=== PATIENT | female | born 1945 | race Caucasian/White ===

== ENCOUNTER 2022-01-12 13:04 | Outpatient (CLI) | payer MEDICARE, BC, SELFPAY | END 2022-01-12 13:05 | disposition home or self-care (01) | LOC: WOUND 13:06 | PROVIDERS: PCP Surgery; Visit Provider Surgery | DX: I89.0 Lymphedema, not elsewhere classified (principal); L89.154 Pressure ulcer of sacral region, stage 4; R77.0 Abnormality of albumin; I48.20 Chronic atrial fibrillation, unspecified; E66.01 Morbid (severe) obesity due to excess calories; Z68.43 Body mass index [BMI] 50.0-59.9, adult | CPT/HCPCS: 97597; 97598 ==

== ENCOUNTER 2022-01-19 12:44 | Outpatient (CLI) | payer MEDICARE, BC, SELFPAY | END 2022-01-19 12:45 | disposition home or self-care (01) | LOC: WOUND 12:45 | PROVIDERS: Visit Provider Surgery | DX: L89.154 Pressure ulcer of sacral region, stage 4 (principal); I89.0 Lymphedema, not elsewhere classified; R77.0 Abnormality of albumin; E66.01 Morbid (severe) obesity due to excess calories; Z68.43 Body mass index [BMI] 50.0-59.9, adult | CPT/HCPCS: 11042 ==

== ENCOUNTER 2022-01-26 12:33 | Outpatient (CLI) | payer MEDICARE, BC, SELFPAY | END 2022-01-26 12:34 | disposition home or self-care (01) | LOC: WOUND 12:35 | PROVIDERS: Visit Provider Surgery | DX: L89.154 Pressure ulcer of sacral region, stage 4 (principal); I89.0 Lymphedema, not elsewhere classified; R77.0 Abnormality of albumin; E66.01 Morbid (severe) obesity due to excess calories; Z68.43 Body mass index [BMI] 50.0-59.9, adult | CPT/HCPCS: 11042; 11045; 15271 ==

== ENCOUNTER 2022-02-02 12:45 | Outpatient (CLI) | payer MEDICARE, BC, SELFPAY | END 2022-02-02 12:46 | disposition home or self-care (01) | LOC: WOUND 12:46 | PROVIDERS: Visit Provider Surgery | DX: L89.154 Pressure ulcer of sacral region, stage 4 (principal); I89.0 Lymphedema, not elsewhere classified | CPT/HCPCS: 11042 ==

== ENCOUNTER 2022-02-09 13:57 | Outpatient (CLI) | payer MEDICARE, BC, SELFPAY ==
--- NOTE | 2022-02-09 14:15 | CRLHL7_ITS ---
For Patients: As a result of the Century Cures Act, medical imaging exams and procedure reports are released immediately into your electronic medical record. You may view this report before your referring provider. If you have questions, please contact your health care provider. Indication: Foot injury. Technique: Three views. Comparison: None. Findings/Impression: Severe generalized osseous demineralization limits evaluation for nondisplaced fractures. No displaced fracture or dislocation. Suspected nondisplaced fracture of the proximal 1st metatarsal. If indicated consider CT for further evaluation. Hallux valgus with degenerative change in the 1st MTP joint. Plantar and retrocalcaneal enthesophytes. Degenerative changes at the tarsometatarsal joints. No osseous erosion or destruction to suggest osteomyelitis on radiograph. Subcutaneous soft tissue swelling in the ankle and foot. Dictated by Ba Espinoza MD @ 02/09/2022 4:17:26 PM (Electronically Signed)
== END 2022-02-09 13:58 | disposition home or self-care (01) ==
LOC: WOUND 13:57
PROVIDERS: Visit Provider Surgery
DX: L89.154 Pressure ulcer of sacral region, stage 4 (principal); I89.0 Lymphedema, not elsewhere classified; S99.822A Other specified injuries of left foot, initial encounter; E66.01 Morbid (severe) obesity due to excess calories; Z68.43 Body mass index [BMI] 50.0-59.9, adult
CPT/HCPCS: 11042; 11045; 73630

== ENCOUNTER 2022-02-16 12:06 | Outpatient (CLI) | payer MEDICARE, BC, SELFPAY ==
--- NOTE | 2022-02-16 12:00 | CRLHL7_ITS ---
For Patients: As a result of the Cures Act, medical imaging exams and procedure reports are released immediately into your electronic medical record. You may view this report before your referring provider. If you have questions, please contact your health care provider. Indication: FOOT INJURY. PAIN BY TOES Technique: Noncontrast CT left foot Please note that all CT scans at this facility use dose modulation, iterative reconstruction, and/or weight-based dosing when appropriate to reduce radiation dose to as low as reasonably achievable. Comparison: X-rays 02/09/2022 Findings: Mildly displaced and slightly comminuted fracture is noted involving the base of the 1st metatarsal. The fracture line extends along the 1st metatarsal diaphysis to the distal 3rd of the metatarsal. 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 Hallux valgus and bunion. Midfoot alignment normal. Osteopenia. No evidence of osteomyelitis or destructive lesion. Impression: Mildly displaced and slightly comminuted fracture involving the 1st metatarsal. Please note that all CT scans at this facility use dose modulation, iterative reconstruction, and/or weight-based dosing when appropriate to reduce radiation dose to as low as reasonably achievable. Dictated by Manny Cross MD @ 02/16/2022 12:59:27 PM (Electronically Signed)
== END 2022-02-16 12:07 | disposition home or self-care (01) ==
PROVIDERS: Visit Provider Surgery
DX: S99.929A Unspecified injury of unspecified foot, initial encounter (principal); S92.312A Displaced fracture of first metatarsal bone, left foot, initial encounter for closed fracture
CPT/HCPCS: 11042; 73700

== ENCOUNTER 2022-02-23 12:41 | Outpatient (CLI) | payer MEDICARE, BC, SELFPAY | END 2022-02-23 12:42 | disposition home or self-care (01) | LOC: WOUND 12:41 | PROVIDERS: Visit Provider Surgery | DX: L89.154 Pressure ulcer of sacral region, stage 4 (principal); I89.0 Lymphedema, not elsewhere classified | CPT/HCPCS: 11042; 11045 ==

== ENCOUNTER 2022-03-02 11:17 | Outpatient (CLI) | payer MEDICARE, BC, SELFPAY | END 2022-03-02 11:18 | disposition home or self-care (01) | PROVIDERS: Visit Provider Surgery | DX: L89.154 Pressure ulcer of sacral region, stage 4 (principal); I89.0 Lymphedema, not elsewhere classified | CPT/HCPCS: 11042 ==

== ENCOUNTER 2022-03-09 12:37 | Outpatient (CLI) | payer MEDICARE, BC, SELFPAY | END 2022-03-09 12:38 | disposition home or self-care (01) | LOC: WOUND 12:37 | PROVIDERS: Visit Provider Surgery | DX: I89.0 Lymphedema, not elsewhere classified (principal); L89.154 Pressure ulcer of sacral region, stage 4 | CPT/HCPCS: 97597 ==

== ENCOUNTER 2022-03-16 12:49 | Outpatient (CLI) | payer MEDICARE, BC, SELFPAY | END 2022-03-16 12:50 | disposition home or self-care (01) | LOC: WOUND 12:49 | PROVIDERS: Visit Provider Surgery | DX: L89.154 Pressure ulcer of sacral region, stage 4 (principal) | CPT/HCPCS: 99212 ==

== ENCOUNTER 2022-03-23 09:00 | Outpatient (CLI) | payer MEDICARE, BC, SELFPAY | END 2022-03-23 09:01 | disposition home or self-care (01) | LOC: WOUND 08-02 11:14 | PROVIDERS: Visit Provider Nurse Practitioner Family | DX: L89.154 Pressure ulcer of sacral region, stage 4 (principal); I89.0 Lymphedema, not elsewhere classified | CPT/HCPCS: 11042 ==

== ENCOUNTER 2022-03-30 12:42 | Outpatient (CLI) | payer MEDICARE, BC, SELFPAY | END 2022-03-30 12:43 | disposition home or self-care (01) | LOC: WOUND 12:43 | PROVIDERS: Visit Provider Nurse Practitioner Family | DX: L89.324 Pressure ulcer of left buttock, stage 4 (principal) | CPT/HCPCS: 11042 ==

== ENCOUNTER 2022-04-06 12:33 | Outpatient (CLI) | payer MEDICARE, BC, SELFPAY | END 2022-04-06 12:34 | disposition home or self-care (01) | LOC: WOUND 12:33 | PROVIDERS: Visit Provider Surgery | DX: L89.324 Pressure ulcer of left buttock, stage 4 (principal); I89.0 Lymphedema, not elsewhere classified | CPT/HCPCS: 11042; 11045 ==

== ENCOUNTER 2022-04-13 13:55 | Outpatient (CLI) | payer MEDICARE, BC, SELFPAY | END 2022-04-13 13:56 | disposition home or self-care (01) | PROVIDERS: Visit Provider Surgery | DX: L89.324 Pressure ulcer of left buttock, stage 4 (principal) | CPT/HCPCS: 11042 ==

== ENCOUNTER 2022-04-20 12:49 | Outpatient (CLI) | payer MEDICARE, BC, SELFPAY | END 2022-04-20 12:50 | disposition home or self-care (01) | LOC: WOUND 12:49 | PROVIDERS: Visit Provider Surgery | DX: L89.324 Pressure ulcer of left buttock, stage 4 (principal); I89.0 Lymphedema, not elsewhere classified | CPT/HCPCS: 11042; 11045 ==

== ENCOUNTER 2022-04-27 12:40 | Outpatient (CLI) | payer MEDICARE, BC, SELFPAY | END 2022-04-27 12:41 | disposition home or self-care (01) | LOC: WOUND 12:40 | PROVIDERS: Visit Provider Surgery | DX: L89.324 Pressure ulcer of left buttock, stage 4 (principal) | CPT/HCPCS: 11042 ==

== ENCOUNTER 2022-05-04 12:44 | Outpatient (CLI) | payer MEDICARE, BC, SELFPAY | END 2022-05-04 12:45 | disposition home or self-care (01) | LOC: WOUND 12:44 | PROVIDERS: Visit Provider Surgery | DX: L89.324 Pressure ulcer of left buttock, stage 4 (principal) | CPT/HCPCS: 11042 ==

== ENCOUNTER 2022-05-11 12:36 | Outpatient (CLI) | payer MEDICARE, BC, SELFPAY | END 2022-05-11 12:37 | disposition home or self-care (01) | LOC: WOUND 12:36 | PROVIDERS: Visit Provider Surgery | DX: L89.154 Pressure ulcer of sacral region, stage 4 (principal); I89.0 Lymphedema, not elsewhere classified | CPT/HCPCS: 11042 ==

== ENCOUNTER 2022-05-18 12:46 | Outpatient (CLI) | payer MEDICARE, BC, SELFPAY | END 2022-05-18 12:47 | disposition home or self-care (01) | LOC: WOUND 12:46 | PROVIDERS: Visit Provider Surgery | DX: L89.154 Pressure ulcer of sacral region, stage 4 (principal); I89.0 Lymphedema, not elsewhere classified | CPT/HCPCS: 11042 ==

== ENCOUNTER 2022-05-25 12:45 | Outpatient (CLI) | payer MEDICARE, BC, SELFPAY | END 2022-05-25 12:46 | disposition home or self-care (01) | LOC: WOUND 12:45 | PROVIDERS: Visit Provider Surgery | DX: L89.154 Pressure ulcer of sacral region, stage 4 (principal); I89.0 Lymphedema, not elsewhere classified; R77.0 Abnormality of albumin | CPT/HCPCS: 11042 ==

== ENCOUNTER 2022-06-01 12:40 | Outpatient (CLI) | payer MEDICARE, BC, SELFPAY | END 2022-06-01 12:41 | disposition home or self-care (01) | LOC: WOUND 12:41 | PROVIDERS: Visit Provider Nurse Practitioner Family | DX: L89.154 Pressure ulcer of sacral region, stage 4 (principal); I89.0 Lymphedema, not elsewhere classified | CPT/HCPCS: 11042 ==

== ENCOUNTER 2022-06-15 12:32 | Outpatient (CLI) | payer MEDICARE, BC, SELFPAY ==
--- OUTSIDE RECORDS SUMMARY | 2022-06-15 12:36 | XMS_ITS | Encounter Summary ---
:1945 Author [facility] Address [address] [place] [address] Care Team Providers Name Role Phone Jaiden Holcomb MD Primary Care Provider Reason for Visit Auth/Cert Specialty Diagnoses / Procedures Referred By Contact Refer red To Contact Diagnoses Acute pulmonary edema (HRC) Chest pain, unspecified type Acute pulmonary edema (HRC) Chest pain, unspecified type Acute pulmonary edema (HRC) Referral ID Status Reason Start Date Expiration Date Visits Requ ested Visits Authorized [id number] 1 1 Encounter Details Date Type Department Care Team Description 12/01/2021 Ancillary Procedure [facility] [address] [place] [id number] Social History Tobacco Use Types Packs/Day Years Used Date Smoking Tobacco: Never Smokeless Tobacco: Never Alcohol Use Standard Drinks/Week Comments No 0 (1 standard drink = 0.6 oz pure alcoho l) Food Insecurity Answer Date Recorded Within the past 12 months, you worried that your food would Never true 12/01/2021 run out before you got money to buy more. Within the past 12 months, the food you bought just didn't N ever true 12/01/2021 last and you didn't have money to get more. Sex Assigned at Date Recorded Not on file documented as of this encounter Plan of Treatment Not on filedocumented as of this encounter Procedures Procedure Name Priority Date/Time Associated Diagnosis Comme nts XR PORTABLE CHEST 1 Routine 12/01/2021 8:38 AM Re sults for this VIEW CDT procedure are i n the results section. documented in this encounter Results XR Portable Chest 1 View (12/01/2021 8:38 AM CDT) Anatomical Region Laterality Modality Chest, Lung Computed Radiography Specimen (Source) Anatomical Collection Method Collection Time Re ceived Time Location / / Volume Laterality 12/01/2021 8:38 AM CDT Narrative 12/01/2021 10:58 AM CDT EXAM: XR PORTABLE CHEST 1 VIEW LOCATION: [facility] DATE/TIME: 12/01/2021, 8:38 AM INDICATION: Volume overload. HFpEF. COMPARISON: 11/30/2021. IMPRESSION: Cardiac silhouette size is e nlarged. There is moderate pulmonary edema. These findings are similar to prior study and compatible with congestive heart failure. No pneumothorax or pleural effusion. Procedure Note Amado Proctor MD - 12/01/2021Form atting of this note might be different from the original. EXAM: XR PORTABLE CHEST 1 VIEW LOCATION: [facility] DATE/TIME: 12/01/2021, 8:38 AM INDICATION: Volume overload. HFpEF. COMPARISON: 11/30/2021. IMPRESSION: Cardiac silhouette size is e nlarged. There is moderate pulmonary edema. These findings are similar to prior study and compatible with congestive heart failure. No pneumothorax or pleural effusion. Reji Santacruz DO RAD PORTABLE documented in this encounter Visit Diagnoses Not on filedocumented in this encounter Care Teams Operational Trainer Relationship Specialty Start Date End Date Jaiden Holcomb MD PCP - General Internal Medicine 11/30/21 [address] [facility] [place] [id number] documented as of this encounter
--- OUTSIDE RECORDS SUMMARY | 2022-06-15 12:36 | XMS_ITS | Clinical Summary ---
:1945 Author Organization [email or web address] [place] [address] Care Team Providers Name Role Phone AlexisEmmett Doni COOPER Primary Care Provider Allergies Active Allergy Reactions Severity Noted Date Comments Cephalexin 07/15/2010 Lisinopril Cough 10/06/2011 Penicillins 07/15/2010 Medications Medication Sig Dispensed Refills Start Date End Date Status warfarin (COUMADIN) 7.5 TK ONE T MTWTSS 0 02/19/2016 Active mg tablet OR DIRECTED BY INR CLINIC hydrocortisone (HYTONE) JOI EXT AA D PRN 3 6 Active 2.5 % ointment atenolol (TENORMIN) 25 3 2016 Active mg tablet losartan (COZAAR) 100 3 2016 Active mg tablet triamterene-hydrochloro TK 1 C PO QAM 3 2016 Active thiazide, 37.5-25 mg, (DYAZIDE) 37.5-25 mg capsule Active Problems Problem Noted Date Kzf-[id number]-uhjibhykgkk corneal dystrophy 03/10/2014 Myopia 07/15/2010 Unspecified cataract 07/15/2010 Social History Tobacco Use Types Packs/Day Years Used Date Never Assessed Sex Assigned at Date Recorded Not on file Plan of Treatment Health Maintenance Due Date Last Done Comments COVID-19 vaccine series (#1) 1945 Tdap 1957 Depression screening for age 12+ 1958 BMI (ht and wt on same day) for age 18+ 01/05/1964 Hepatitis C screening for age 18-79 01/05/1964 Tetanus booster 1966 Zoster (shingles) series for age 50+ (1 of 2) 01/05/1996 DEXA/DXA scan for age 65+ 2011 Medicare Wellness for age 65+ 2011 Pneumococcal series for age 65+ (1 - PCV) 2011 Influenza for age 65+ 03/17/2022 Results Not on filefrom Last 3 Months Insurance Payer Benefit Plan / Subscriber ID Effective Dates Phone Addre ss Type Group [employer] [place] [place] [id number] 2014-Present [address] [address] [place] [address] MEDICARE - PB MEDICARE [place] [id number] 2010-Present ATTN : CLAIMS USE ONLY ONLY [address] [place] [address] Care Teams Service Dog Trainer Relationship Specialty Start Date End Date Emmett Alexis, OD PCP - General Film Splicer 06/28/10
--- OUTSIDE RECORDS SUMMARY | 2022-06-15 12:36 | XMS_ITS | Encounter Summary ---
:1945 [facility] Address [address] [place] [address] Care Team Providers Name Role Phone Jaiden Holcomb MD Primary Care Provider Reason for Referral Consult only No Tests 1 visit (Routine) - Incomplete Specialty Diagnoses / Procedures Referred By Contact Refer red To Contact Diagnoses Generalized muscle weakness Lymphedema Reji Santacruz DO [address] [place] [id number] Referral ID Status Reason Start Date Expiration Date Visits V isits Requested Authorized [id number] Incomplete 12/03/2021 06/01/[phone] Scheduling Instructions This order is your clinician's recommend ation for a service and is not an insurance referral which authorizes payment. The r ecommended service and/or location may not be covered by your insurance plan. Please c all the number on your insurance card to find out your specific benefits and coverage for the recommended services and/or location. If you need help scheduling the recommen ded services, please ask your clinician's staff to assist you. onsult only No Tests 1 visit (Routine) - Incomplete Specialty Diagnoses / Procedures Referred By Contact Refer red To Contact Diagnoses Generalized muscle weakness Reji Santacruz DO [address] [place] [id number] Referral ID Status Reason Start Date Expiration Date Visits V isits Requested Authorized [id number] Incomplete 12/03/2021 06/01/[phone] Scheduling Instructions This order is your clinician's recommend ation for a service and is not an insurance referral which authorizes payment. The r ecommended service and/or location may not be covered by your insurance plan. Please c all the number on your insurance card to find out your specific benefits and coverage for the recommended services and/or location. If you need help scheduling the recommen ded services, please ask your clinician's staff to assist you. herapies (Routine) - New Request Specialty Diagnoses / Procedures Referred By Contact Refer red To Contact Diagnoses Lymphedema Reji Santacruz DO [address] [place] [phone] Referral ID Status Reason Start Date Expiration Date Visits V isits Requested Authorized [id number] New Request 12/03/2021 12/03/2022 1 1 Scheduling Instructions Your provider has recommended an appoint ment with [facility]. You can quickly make your appointment online at [employer]/schedule. You can also call [phone] for help scheduling yo ur appointment. We suggest you call your health insurance company about your cove rage and benefits for this appointment. onsult only No Tests 1 visit (Routine) - Incomplete Specialty Diagnoses / Procedures Referred By Contact Refer red To Contact Diagnoses Generalized muscle weakness Reji Santacruz DO [address] [place] [id number] Referral ID Status Reason Start Date Expiration Date Visits V isits Requested Authorized [id number] Incomplete 12/03/2021 06/01/[phone] Scheduling Instructions This order is your clinician's recommend ation for a service and is not an insurance referral which authorizes payment. The r ecommended service and/or location may not be covered by your insurance plan. Please c all the number on your insurance card to find out your specific benefits and coverage for the recommended services and/or location. If you need help scheduling the recommen ded services, please ask your clinician's staff to assist you. onsult only No Tests 1 visit (Routine) - Incomplete Specialty Diagnoses / Procedures Referred By Contact Refer red To Contact Diagnoses Acute pulmonary edema (HRC) Reji Santacruz DO [address] [place] [address] Referral ID Status Reason Start Date Expiration Date Visits V isits Requested Authorized [id number] Incomplete 12/03/2021 06/01/[phone] Scheduling Instructions This order is your clinician's recommend ation for a service and is not an insurance referral which authorizes payment. The r ecommended service and/or location may not be covered by your insurance plan. Please c all the number on your insurance card to find out your specific benefits and coverage for the recommended services and/or location. If you need help scheduling the recommen ded services, please ask your clinician's staff to assist you. Consult/Transfer Care (Routine) - New Request Specialty Diagnoses / Procedures Referred By Contact Refer red To Contact Diagnoses Acute pulmonary edema (HRC) Reji Santacruz DO [address] [place] [address] Referral ID Status Reason Start Date Expiration Date Visits V isits Requested Authorized [id number] New Request 12/03/2021 03/04/2023 1 1 Scheduling Instructions Your provider has recommended an appoint ment with [facility]. You can quickly make your appointment online at [employer]/schedule. You can also call [phone] for help scheduling yo ur appointment. We suggest you call your health insurance company about your cove rage and benefits for this appointment. Consult/Transfer Care (Routine) - Closed Specialty Diagnoses / Procedures Referred By Contact Refer red To Contact Diagnoses Acute pulmonary edema (HRC) Reji Santacruz DO [facility] - [address] [place] [address] [place] [address] Fax: Referral ID Status Reason Start Date Expiration Date Visits Requ ested Visits Authorized [id number] Closed 12/03/2021 01/02/2022 1 1 Scheduling Instructions Your provider has recommended an appoint ment with [facility] for your ongoing patient care. You can quick ly make your appointment online at [employer]/schedule. You can als o call [phone] for help scheduling your appointment. We suggest you call your [employer] about your coverage and benefits for this appointment. Procedure/Equipment (Routine) - Incomplete Specialty Diagnoses / Procedures Referred By Contact Refer red To Contact Procedures Reji Santacruz DO XR Portable Chest 1 View [address] [place] [address] Referral ID Status Reason Start Date Expiration Date Visits V isits Requested Authorized [id number] Incomplete 12/01/2021 03/02/2023 1 1 Procedure/Equipment (Routine) - Incomplete Specialty Diagnoses / Procedures Referred By Contact Refer red To Contact Procedures Christiano Kam MD XR Chest 2 Views [address] [place] [address] Referral ID Status Reason Start Date Expiration Date Visits V isits Requested Authorized [id number] Incomplete 11/30/2021 03/01/2023 1 1 Reason for Visit Reason Comments Chest Pain Auth/Cert Specialty Diagnoses / Procedures Referred By Contact Refer red To Contact Diagnoses Acute pulmonary edema (HRC) Chest pain, unspecified type Acute pulmonary edema (HRC) Chest pain, unspecified type Acute pulmonary edema (HRC) Referral ID Status Reason Start Date Expiration Date Visits Requ ested Visits Authorized [id number] 1 1 Encounter Details Date Type Department Care Team Description 11/30/2021 - Hospital Encounter [facility] S6 Angelina Stephen MD [address] [place] [address] Chest pain, unspecified type (Primary Dx ); 12/03/2021 [facility] Reji Santacruz DO [address] [place] [address] Acute pulmonary edema (HRC); [place], [place] Generalized m uscle weakness; [id number] Lymphedema; [phone] Essential hyper tension; Chronic a-fib ( HRC); Encounter for l aboratory testing for COVID-19 virus Social History Tobacco Use Types Packs/Day Years [...] on file documented as of this encounter Last Filed Vital Signs Vital Sign Reading Time Taken Comments Blood Pressure 142/103 12/03/2021 8:52 AM CDT Pulse 86 12/03/2021 8:52 AM CDT Temperature 36.5 ??C (97.7 ??F) 12/03/2021 7:23 AM CDT Respiratory Rate 14 12/03/2021 7:23 AM CDT Oxygen Saturation 98% 12/02/2021 3:30 PM CDT Inhaled Oxygen Concentration - - Weight 156.3 kg (344 lb 9.6 oz) 12/03/2021 7:04 AM CDT Height 170.2 cm (5' 7) 12/01/2021 12:00 AM CDT Body Mass Index 53.97 12/01/2021 12:00 AM CDT documented in this encounter Discharge Summaries Elie Lim MD - 12/03/2021 9:08 AM CDT [facility] Discharge Summary Admit Date: 11/30/2021 12:08 PM Date of Service/Discharge date: 12/03/2021 Final diagnoses (primary and secondary): 1. Pulmonary edema 2. HFpEF 3. Morbid obesity Problem that led to hospitalization: Per admit H&P: Charlette Bursh is a 76 y.o.??female??w/ PMH??long-standing persistent??afib on warfarin, HTN,??scoliosis, CEFERINO w/ cpap,??and??chronic BLE??lymphedema,??presenting to the ED on 11/30/2021 for mid-thoracic back pain radiating to the chest w/o associated SOB, and??found to have cardiomegaly and b/l pulmonaryedema??on CXR, and new-onset HF with LVEF 60% Please see full details from H&P note on 11/30/2021 Imaging/Procedures: CXR on 11/30/2021 IMPRESSION: No pneumothorax. The heart is enlarged. There is pulmonary vascular and interstitial edema with some parahilar pulmonary edema and small bilateral pleural effusions consistent with congestive heart failure. No definite consolidation. Scoliosis with degenerative change in the spine. TTE on 11/30/2021 Summary 1. Echo 11/30/2021 3:05:00 PM. 2. Atrial fibrillation during study. 3. Mild concentric LVH. 4. Normal LV size and systolic function, EF 60%. 5. Normal RV size and function. 6. Moderate to severe biatrial enlargement. 7. Mild mitral regurgitation. 8. Moderate TR, Estimated RV systolic pressure=42 mmHg. Hospital Course Pulmonary edema 2/2??new-onset??HFpEF (60%) CXR 11/30/2021:??pulmonary vascular and interstitial edema with some parahilar pulmonary edema and small bilateral pleural effusions consistent with congestive heart failure. Echo 11/30/2021: Mild concentric LVH, moderate-severe biatrial enlargement, and moderate TR, RV systolic pressure: 42 mmHg. Admission weight 366lbs. Pt s/p lasix 20mg once. Weight today reported as 345lbs, but inaccurate. Dry weight unknown. Switching lasix 20mg IV BID to lasix 40mg PO QD. Discussed risks vs benefits of atorvastatin and pt agreeable to begin. Pt is agreeable to starting empagliflozin upon discharge. PT cleared pt for discharge to home. Plan: - start empagliflozin 10 mg qday - continue lasix 20 mg qday - start atorvastatin 40mg qd - follow up with cardiology for new HFpEF with CBC, BMP and Mg - Defer discussion on weight loss, including ozempic and bariatric surgery to PCP ?? Back pain radiating to chest Unknown etiology. EKG found no ST-T changes. Pt asx for SOB, lightheadedness, n/v. Pain does not fittypical ACS or aortic dissection description. CXR 11/30 showed no pneumothorax, but showed cardiomegaly and??b/l pulmonary edema. Repeat troponin: 0.01. Possible scoliosis or MSK-related pain given thatpain is only present when pt is lying down, reproducible w/ palpation, and improves w/ tylenol use and sittingup.??Low concern for cardiac etiology for this symptom?? - tylenol prn for pain control ? Chronic Issues: ?? Chronic lymphedema: Lymphedema wraps present on b/l LE on exam. No signs of infection or inflammation ?? Chronic LT Sacral Wound: Present on admission. Pt reports from 10/2017 and has since improved. On exam, 4 x 6 cm cavitating, well healing, mildly malodorous, non-erythematous, and mildly prululent LT sacral wound appreciated. Pt has wound care at home that dresses and packs wound. No signs of infection or inflammation ?? Long-standing persistent??Afib: EKG 11/30/2021 revealed currently in afib. Pt asx and rate stable. Pt takes warfarin 10mg qd. Protime: 28.5 (28 one day ago), and INR: 2.7 (2.6 1 day ago). Pt at therapeutic dosage. -??Continue warfarin ?? HTN: BP: 137/82. Stable. Pt took [facility] atenolol 25mg BID, losartan 50mg qd. - Switch fom atenolol 25mg BID to metoprolol tartrate 25 mg bid - Continue losartan 50mg qd. ?? CEFERINO: Pt uses CPAP. - cont w/ cpap use ?? Seizure: Per pt, possibly had seizure in 2019 and was started on Keppra 500mg BID w/o recurrence - cont keppra 500mg bid Patient seen and examined day of discharge. Pertinent discharge exam findings: BP (!) 152/82 Pulse 71 Temp 99 ??F (37.2 ??C) (Oral) Resp 20 Ht 5' 7 (1.702 m) Wt (!) 156.6 kg (345 lb 3.2 oz) SpO2 97% BMI 54.07 kg/m?? Constitutional:??A/O x3, not in apparent distress HEENT:?PERRLA Chest: Lungs b/l clear to ascultation, no wheezing, not in respiratory distress Cardiovascular:??Irregularly Irregular RR, no murmurs appreciated Abdomen:?Abdomen grossly obese :?Not performed Extremities:?B/L LE severe ??Lymphaedema, wrap appreciated on B/L LE. 4 x 6 cm cavitating, well healing, mildly malodorous, non-erythematous LT sacral wound appreciated Discharge Information Condition at discharge: stable. Discharge destination: home. Medications at discharge: Current Discharge Medication List START taking these medications Details atorvastatin (LIPITOR) 40 MG tablet Take 1 Tablet (40 mg) by mouth every evening. Indications: to lower cholesterol Qty: 90 Tablet, Refills: 3 empagliflozin (JARDIANCE) 10 MG tablet Take 1 Tablet (10 mg) by mouth daily. Qty: 90 Tablet, Refills: 3 furosemide (LASIX) 20 MG tablet Take 1 Tablet (20 mg) by mouth daily. Indications: Cardiac Failure Qty: 90 Tablet, Refills: 3 metoprolol tartrate (LOPRESSOR) 25 MG tablet Take one-half Tablet (12.5 mg) by mouth two times a day. Qty: 90 Tablet, Refills: 3 CONTINUE these medications which have NOT CHANGED Details acetaminophen (TYLENOL) 500 MG tablet Take 500-1,000 mg by mouth every 4 hours as needed for Pain. Maximum acetaminophen dose is 4000 mg in 24 hours ascorbic acid (AKA VITAMIN C) 1000 MG tablet Take 1,000 mg by mouth daily. cetirizine (ZYRTEC) 10 MG tablet Take 10 mg by mouth two times a day. Cholecalciferol (VITAMIN D3) 125 MCG (5000 UT) TABS Take 1 Tablet by mouth daily. docusate sodium (COLACE) 100 MG capsule Take 100 mg by mouth every 24 hours as needed for Constipation. levETIRAcetam (KEPPRA) 500 MG tablet Take 500 mg by mouth two times a day. losartan (COZAAR) 50 MG tablet Take 50 mg by mouth daily. magnesium oxide (MAG-OX) 400 MG tablet Take 400 mg by mouth daily. !! Multiple Vitamins-Minerals (PRESERVISION AREDS) TABS Take 1 Tablet by mouth two times a day. !! multivitamin with minerals tablet Take 1 Tablet by mouth daily. nystatin (MYCOSTATIN) 946743 UNIT/GM powder Apply topically two times daily as needed. Beneath bilateral breast/groin omega-3 fatty acids (FISH OIL) 1000 MG capsule Take 2 g by mouth daily. warfarin (COUMADIN) 10 MG tablet Take 10 mg by mouth daily. zinc gluconate 50 MG tablet Take 50 mg by mouth daily. !! - Potential duplicate medications found. Please discuss with provider. STOP taking these medications atenolol (TENORMIN) 25 MG tablet Comments: Reason for Stopping: nystatin (MYCOSTATIN) [id number] UNIT/GM cream Comments: Reason for Stopping: Discharge Orders (Non-med) When to Resume Normal Activities: Comments: You may resume normal activities as tolerated Discharge Instructions Comments: Dear Charlette Brush Your were hospitalized at [facility] with volume overload from heart failure. Your treatment consisted of diuretics. Over your hospitalization your breathing improved and today you are ready to be discharged home. If you continue lasix and empagliflozin you should continue to improve but if you d evelop fever, shortness of breath, light headedness, chest pain please seek medical attention. We are suggesting the following medication changes: - Start atorvastatin 40 mg at bedtime - Start empagliflozin 10 mg daily - Start metoprolol tartrate 25 mg bid - Start lasix 20 mg qday - Stop taking atenolol Please take your other medications as you were before admission unless otherwise noted. Please get the following tests done: BMP and CBC Please set up an appointment with: PCP in 2 weeks It was a pleasure meeting with you in the hospital. Please let us know if there is anything else we can do for you so that we can be sure you are leaving completely satisfied with your care experience. Your hospital unit at the time of discharge is S6 so if you have any questions please call the hospital and ask to talk to a nurse on S6. Take care! Elie Lim MD Internal Medicine Resident (PGY-1) [facility] Pager: [phone] Heart Healthy Diet Low Sodium Diet [facility] - patient will be called in 3 days References: Specialty Connection Barb [facility]ron Consult Page Question Answer Comment What type of follow up? IP Discharge Appointment Urgency? Non-Urgent Reason for visit? Post hospital follow up Code Status: Full Code. For information about patient referrals and other discharge orders, please see Discharge Instructions or the Other Orders tab in Chart Review. Patient discussed with attending provider, Dr. Santacruz. Elie Lim MD Internal Medicine Resident (PGY-1) [facility] Pager: [phone] Associated attestation - Reji Santacruz DO - 12/03/2021 1:17 PM CDT Date of service: 12/03/2021 I saw and evaluated the patient. I agree with Dr. Lim's (resident) note. Discharging in stable condition. Cardiology follow up ordered. Total D/C time > 30 min. Reji Santacruz DO documented in this encounter Discharge Instructions Discharge InstructionsAriadna Carlos RN - 12/03/2021 11:50 AM CDT Fall Prevention Rommendations Follow therapy recommendations around equipment use and activity progression Remove trip hazards to keep pathways clear in the home Remove throw rugs Keep frequently used items in easy to reach places Use non-slip mats in the bathtub and on shower floors Improve lighting in your home in all areas Wear shoes or non-slip footwear inside the house Discharge Instr - SafetyAriadna Carlos RN - 12/03/2021 11:43 AM CDT Call your clinic or seek medical help if you have any sudden change in your condition or if you haveany of the following: chest pain difficulty breathing fever greater than 100.4 degrees F pain not relieved with usual methods shortness of breath AttachmentsThe following attachments cannot be sent through Care Everywhere. Pulmonary Edema (Greek)documented in this encounter Medications at Time of Discharge Medication Sig Dispensed Refills Start Date End Date acetaminophen (TYLENOL) Take 500-1,000 mg by 0 500 MG tablet mouth every 4 hours as needed for Pain. Maximum acetaminophen dose is 4000 mg in 24 hours ascorbic acid (AKA Take 1,000 mg by 0 VITAMIN C) 1000 MG mouth daily. tablet atorvastatin (LIPITOR) Take 1 Tablet (40 mg) 90 Tablet 3 12/03/2022 40 MG tabletIndications: by mouth every to lower cholesterol evening. Indications: to lower cholesterol cetirizine (ZYRTEC) 10 Take 10 mg by mouth 0 05/07/2017 MG tablet two times a day. Cholecalciferol (VITAMIN Take 1 Tablet by 0 D3) 125 MCG (5000 UT) mouth daily. TABS docusate sodium (COLACE) Take 100 mg by mouth 0 100 MG capsule every 24 hours as needed for Constipation. empagliflozin Take 1 Tablet (10 mg) 90 Tablet 3 12/03/2021 12/03/2022 (JARDIANCE) 10 MG tablet by mouth daily. furosemide (LASIX) 20 MG Take 1 Tablet (20 mg) 90 Tablet 3 12/03/2021 12/03/2022 tabletIndications: Heart by mouth daily. Failure Indications: Cardiac Failure levETIRAcetam (KEPPRA) Take 500 mg by mouth 0 500 MG tablet two times a day. losartan (COZAAR) 50 MG Take 50 mg by mouth 0 tablet daily. magnesium oxide (MAG-OX) Take 400 mg by mouth 0 400 MG tablet daily. metoprolol tartrate Take one-half Tablet 90 Tablet 3 2021 (LOPRESSOR) 25 MG tablet (12.5 mg) by mouth two times a day. Multiple Take 1 Tablet by 0 Vitamins-Minerals mouth two times a (PRESERVISION AREDS) day. TABS multivitamin with Take 1 Tablet by 0 minerals tablet mouth daily. nystatin (MYCOSTATIN) Apply topically two 0 [id number] UNIT/GM powder times daily as needed. Beneath bilateral breast/groin omega-3 fatty acids Take 2 g by mouth 0 (FISH OIL) 1000 MG daily. capsule warfarin (COUMADIN) 10 Take 10 mg by mouth 0 01/2018 MG tablet daily. zinc gluconate 50 MG Take 50 mg by mouth 0 tablet daily. documented as of this encounter Progress Notes Elie Lim MD - 12/02/2021 8:00 AM CDT Images from the original note were not included. [facility] Medicine Progress Note () Patient Name: Charlette Brush Date of Service: 12/02/2021 Subjective: Acute events overnight. Pt reports intermittent positional vertigo lasting 2-3 seconds w/o tinnitus,vision changes, n/v. During visit, pt's HR 40-70 BPM. Denies pain currently, DOMINGO, exertional chest heaviness, lightheadedness, headache, palpitations, n/v, abd pain. Pt agreeable to lasix 40mg PO oral, starting atorvastatin today, and empagliflozin upon discharge. Objective: Most Recent Vital Signs: Min and Max Vital Signs (24 hours): Temp: 99 ??F (37.2 ??C) BP: 130/69 Pulse: 71 Resp: 20 SpO2: 97 % Temp Min: 98.7 ??F (37.1 ??C) Max: 99 ??F (37.2 ??C) BP Min: 130/69 Max: 171/102 Pulse Min: 63 Max: 81 Resp Min: 12 Max: 22 SpO2 Min: 95 % Max: 99 % Constitutional: A/O x3, not in apparent distress HEENT: PERRLA Chest: Lungs b/l clear to ascultation, no wheezing, not in respiratory distress Cardiovascular: Irregularly Irregular RR, no murmurs appreciated Abdomen: Abdomen grossly obese : Not performed Extremities: B/L LE severe Lymphaedema, wrap appreciated on B/L LE. 4 x 6 cm cavitating, well healing, mildly malodorous, non-erythematous LT sacral wound appreciated Labs: Reviewed and notable for the following: Lab Results Component Value Date WBC 4.9 12/02/2021 RBC 4.71 12/02/2021 Hemoglobin 14.2 12/02/2021 HCT 42.4 12/02/2021 MCV 90.0 12/02/2021 RDW 13.6 12/02/2021 Platelets 245 12/02/2021 Lab Results Component Value Date Creatinine 0.51 (L) 12/01/2021 Glucose 93 12/01/2021 CO2 25 12/01/2021 Chloride 103 12/01/2021 Potassium 4.3 12/01/2021 Sodium 140 12/01/2021 BUN 17 12/01/2021 Calcium 9.9 12/01/2021 GFR, Estimated >60 12/01/2021 Lab Results Component Value Date Magnesium 2.0 12/01/2021 Imaging/Other: EK11/30/2021 Atrial fibrillation Abnormal ECG When compared with ECG of 01-JAN-2018 16:37, Vent. rate has decreased BY ??36 BPM ?? CXR 11/30/2021: -No pneumothorax. -The heart is enlarged. -There is pulmonary vascular and interstitial edema with some parahilar pulmonary edema and small bilateral pleural effusions consistent with congestive heart failure. -No definite consolidation. - Scoliosis with degenerative change in the spine. Echo 11/30/2021: - Atrial fibrillation during study. - Mild concentric LVH. - Normal LV size and systolic function, EF 60%. - Normal RV size and function. - Moderate to severe biatrial enlargement. -Mild mitral regurgitation. -Moderate TR, Estimated RV systolic pressure=42 mmHg. Assessment and Plan: Charlette Brush is a 76 y.o. female w/ PMH long-standing persistent afib on warfarin, HTN, scoliosis, CEFERINO w/ cpap, and chronic BLE lymphedema, presenting to the ED on 11/30/2021 for mid-thoracic back pain radiating to the chest w/o associated SOB, and found to have cardiomegaly and b/l pulmonary edema on CXR, and new-onset HF on ECHO. Changes today 12/01/2021: - change lasix 20mg IV bid to lasix 40mg PO qd - start atorvastatin 40mg qd Pulmonary edema 2/2 new-onset HFpEF (60%) CXR 11/30/2021: pulmonary vascular and interstitial edema with some parahilar pulmonary edema and small bilateral pleural effusions consistent with congestive heart failure. Echo 11/30/2021: Mild concentric LVH, moderate-severe biatrial enlargement, and moderate TR, RV systolic pressure: 42 mmHg. Admission weight 366lbs. Pt s/p lasix 20mg once. Weight today reported as 345lbs, but inaccurate. Dry weight unknown. Switching lasix 20mg IV BID to lasix 40mg PO QD. Discussed risks vs benefits of atorvastatin and pt agreeable to begin. Pt is agreeable to starting empagliflozin upon discharge. PT cleared ptfor discharge to home. Plan: - Strict I&O's with daily weight - Low Na diet & 2 L fluid restriction, heart healthy diet - Monitor K & Mg with goal K > 4 & Mg > 2 - outpaitent cardiology referral - start empagliflozin upon discharge - change lasix 20mg IV bid to lasix 40mg PO qd - start atorvastatin 40mg qd - discuss ozempic and weight loss for outpatient ?? Back pain radiating to chest Unknown etiology. EKG found no ST-T changes. Pt asx for SOB, lightheadedness, n/v. Pain does not fittypical ACS or aortic dissection description. CXR 11/30 showed no pneumothorax, but showed cardiomegaly and b/l pulmonary edema. Repeat troponin: 0.01. Possible scoliosis or MSK-related pain given that pain is only present when pt is lying down, reproducible w/ palpation, and improves w/ tylenol use and sittingup. Low concern for cardiac etiology for this symptom - tylenol prn for pain control Benign Paroxysmal Positional Vertigo: Pt reports intermittent 2-3 seconds of positionally related vertigo w/o syncope, lightheadedness, tinnitus, n/v. Postural hypotension, Meniere's Disease unlikely. Pt reports seeing ENT in the past w/ Rubina bacon and has never been on meclizine or betahistine. Given the infrequency of the attacks, medications are not indicated. If frequency increases, consider outpatient rx of betahistine w/ Rubina dottiever. - ctm for increased frequency ?? Chronic Issues: ?? Chronic lymphedema: Lymphedema wraps present on b/l LE on exam. - lymphedema therapy - cont low fat, sodium restricted, gluten free diet Chronic LT Sacral Wound: Present on admission. Pt reports from 10/2017 and has since improved. On exam, 4 x 6 cm cavitating, well healing, mildly malodorous, non-erythematous, and mildly prululent LT sacral wound appreciated. Pt has wound care at home that dresses and packs wound - cont wound care ?? Long-standing persistent Afib: EKG 11/30/2021 revealed currently in afib. Pt asx and rate stable. Pt takes warfarin 10mg qd. Protime: 28.5 (28 one day ago), and INR: 2.7 (2.6 1 day ago). Pt at therapeutic dosage. - Pharmacy consult for dosing warfarin (INR goal 2-3) HTN: BP: 137/82. Stable. Pt currently takes atenolol 25mg BID, losartan 50mg qd. - cont atenolol 25mg BID, losartan 50mg qd. ?? CEFERINO: Pt uses CPAP. - cont w/ cpap use ?? Seizure: Per pt, possibly had seizure in 2019 and was started on Keppra 500mg BID w/o recurrence - cont keppra 500mg bid Prophylaxis: Warfarin 10mg qd Disposition: After PT/OT eval, most likely home Code Status/Goals of Care: Full Dustin Parra [facility] MS3 Pt staffed by Dr. Reji Santacruz, I personally supervised, performed the exam and medical decision making, and agree with the medical student???s documentation, addended where needed. Elie Lim MD Internal Medicine Resident (PGY-1) [facility] Pager: [phone] Associated attestation - Reji Santacruz DO - 12/02/2021 4:37 PM CDT Date of service: 12/02/2021 I saw and evaluated the patient. I agree with Dr. Lim's (resident) note. Overall improved. Breathing easier. Switch to oral lasix. Likely d/c tomorrow. Reji Santacruz DO documented in this encounter Consult Notes Elissa Odonnell RN - 12/02/2021 3:10 PM CDTAssociated Order(s): WOUND/FIELD SALES MANAGER CONSULT [facility] Wound Progress Note Evaluate for: Left buttock wound Consulted by: RN Diagnosis: Encounter Diagnoses Name Primary? Chest pain, unspecified type Yes ??? Acute pulmonary edema (HRC) Relevant Labs: Lab Results Component Value Date/Time WBC 4.9 12/02/2021 07:58 AM WBC 4.8 12/01/2021 07:11 AM ALB 3.0 (L) 11/30/2021 12:37 PM Patient reports: Pt consents to assessment. Relevant patient history: Charlette Brush is a 76 y.o.??female??w/ PMH??long-standing persistent??afib on warfarin, HTN,??scoliosis, CEFERINO w/ cpap,??and??chronic BLE??lymphedema,??presenting to the ED on 11/30/2021 for mid-thoracic back pain radiating to the chest w/o associated SOB, and??found to have cardiomegaly and b/l pulmonaryedema??on CXR, and new-onset HF on ECHO. ?? Assessment: ?? Surgically debrided wound on left IT/buttock area. Wound measures 4cm x 5cm x 7cm. Wound bed is pink, slick. Little to no granular tissue present. Wound edges epibolized, attached. Moderate amount serous drainage present. No periwound erythema noted. ?? Pedal pulses: Not applicable ?? Pain: 0/10 ?? Signs of infection: none to skin/wound assessed Patient consult included visit and visual assessment: Yes/No: Yes. The following areas were visuallyassessed: Bilat buttock Pressure Related Wound: Yes, Pressure Injury stage: Surgically debrided injury. Present on Admission: Yes. Under Flavoring Oil Filterer: No. Treatment Provided: Wound cleansed, Hydrofera Blue and Mepilex placed. Inpatient Plan and orders: ?? Inpatient plan: Bedside RN/RT to follow wound care and/or skin care order(s). ?? Wound team has completed consult, no follow up planned. Please re-consult as needed. ?? Support Surface: IsoFlex mattress (low air loss pump in use) Wound Care/Skin Care orders(s): Type of wound Surgically debrided wound Location of wound Left buttock Instructions for Irrigation/Cleaning Dilute Hibiclens-30ml Hibiclens/500ml normal saline. Clean and dress wound Tue/Thur/Sat Topical treatments Cut Hydrofera Blue to fit wound bed. Moisten Hydrofera Blue with normal saline and place in wound. Dressing Size appropriate Mepilex. Discharge Plan and orders: ?? Discharge plan: TBD Additional Consults: --- Communication: I spoke with the pt and primary RN regarding plan of care and entered orders. Please reorder the Wound/rail technician Consult for questions, concerns or deterioration. Wound/Ostomy nurse is available Monday-Monday (excluding holidays) between 8a to 3p. If outside of this time please contact Attending Practitioner/team. Report completed by Sybil Godinez RN, C/OMS. --- End of Report --- documented in this encounter OR Notes H&P - Elie Lim MD - 11/30/2021 4:03 PM CDT Images from the original note were not included. [facility] Medicine History & Physical Patient name: Charlette Brush : 1945 Date of Admission: 11/30/2021 12:08 PM Date of Service: 11/30/2021 Air Moving Technician Used: No Chief Complaint Back pain, chest pain History of Present Illness 76 y.o. female w/ PMH long-standing persistent afib on warfarin, HTN, scoliosis, CEFERINO w/ cpap, and chronic BLE lymphedema, who presents on 11/30/2021 for intermittent back and chest pain x 2wks. Pt reports dull pain that originates in the middle of the back and radiates b/l in a band-like pattern to the sternum and top of the shoulders x 2 wks. Pt rates pain 3/10 today. She reports the pain only occurs when lying down and resolves upon sitting up or taking tylenol. Pt denies SOB, orthopnea, PND, worsening edema, dizziness, lightheadedness, nausea, vomiting, upper respiratory symptoms, fevers, headache or chills. No new rashes. Does not smoke. Pt has never had similar pain. Upon presentation to the ED, pt was hemodynamically stable. Vitals, T: 98.1, BP: 137/82, P: 69, R:25, and SpO2: 99% RA. Labs significant for BNP: 136, negative Trop I, and anion gap 6. EKG revealed Afib without significant ST-T changes. CXR showed cardiomegaly and bilateral pulmonary edema. Awaiting ECHO results. Pt admitted for further workup. Review of Systems Review of Systems All ROS negative unless stated in HPI Past Medical History There is no problem list on file for this patient. Past Surgical History History reviewed. No pertinent surgical history. Family History History reviewed. No pertinent family history. No FMH of cardiac disease Social History Social History Socioeconomic History ??? Marital status: Single Spouse name: Not on file ??? Number of children: Not on file ??? Years of education: Not on file ??? Highest education level: Not on file Occupational History ??? Not on file Tobacco Use ??? Smoking status: Never Smoker ??? Smokeless tobacco: Never Used Substance and Sexual Activity ??? Alcohol use: No ??? Drug use: No ??? Sexual activity: Not on file Other Topics Concern ??? Not on file Social History Narrative ??? Not on file Social Determinants of Health Financial Resource Strain: Not on file Food Insecurity: Not on file Transportation Needs: Not on file Physical Activity: Not on file Intimate Partner Violence: Not on file Housing Stability: Not on file Medications Prior to Admission Medications Prescriptions Last Dose Informant Patient Reported? Taking? Cholecalciferol (VITAMIN D3) 125 MCG (5000 UT) TABS 11/29/2021 at Unknown time Pharmacy/Pharmacist Yes Yes Sig: Take 1 Tablet by mouth daily. Multiple Vitamins-Minerals (PRESERVISION AREDS) TABS 11/30/2021 at Unknown time Pharmacy/Pharmacist Yes Yes Sig: Take 1 Tablet by mouth two times a day. acetaminophen (TYLENOL) 500 MG tablet As Directed-PRN at Unknown time Pharmacy/Pharmacist Yes Yes Sig: Take 500-1,000 mg by mouth every 4 hours as needed for Pain. Maximum acetaminophen dose is 4000mg in 24 hours ascorbic acid (AKA VITAMIN C) 1000 MG tablet 11/29/2021 at Unknown time Pharmacy/Pharmacist Yes Yes Sig: Take 1,000 mg by mouth daily. atenolol (TENORMIN) 25 MG tablet 11/30/2021 at Unknown time Pharmacy/Pharmacist Yes Yes Sig: Take 25 mg by mouth two times a day. cetirizine (ZYRTEC) 10 MG tablet 11/30/2021 at Unknown time Pharmacy/Pharmacist Yes Yes Sig: Take 10 mg by mouth two times a day. docusate sodium (COLACE) 100 MG capsule As Directed-PRN at Unknown time Pharmacy/Pharmacist Yes Yes Sig: Take 100 mg by mouth every 24 hours as needed for Constipation. drug not in computer 11/29/2021 at Unknown time Pharmacy/Pharmacist Yes No Sig: Floridex - Take 10 mL by mouth once daily levETIRAcetam (KEPPRA) 500 MG tablet 11/30/2021 at Unknown time Pharmacy/Pharmacist Yes Yes Sig: Take 500 mg by mouth two times a day. losartan (COZAAR) 100 MG tablet Yes No Sig: Take 100 mg by mouth. losartan (COZAAR) 50 MG tablet 11/30/2021 at Unknown time Pharmacy/Pharmacist Yes Yes Sig: Take 50 mg by mouth daily. magnesium oxide (MAG-OX) 400 MG tablet 11/29/2021 at Unknown time Pharmacy/Pharmacist Yes Yes Sig: Take 400 mg by mouth daily. multivitamin with minerals tablet 11/29/2021 at Unknown time Pharmacy/Pharmacist Yes Yes Sig: Take 1 Tablet by mouth daily. nystatin (MYCOSTATIN) 285533 UNIT/GM cream As Directed-PRN at Unknown time Pharmacy/Pharmacist Yes Yes Sig: Apply topically every 24 hours as needed for Dry Skin. nystatin (MYCOSTATIN) 308265 UNIT/GM powder As Directed-PRN at Unknown time Pharmacy/Pharmacist Yes Yes Sig: Apply topically two times daily as needed. Beneath bilateral breast/groin omega-3 fatty acids (FISH OIL) 1000 MG capsule 11/29/2021 at Unknown time Pharmacy/Pharmacist Yes Yes Sig: Take 2 g by mouth daily. warfarin (COUMADIN) 10 MG tablet 11/29/2021 at Unknown time Pharmacy/Pharmacist Yes Yes Sig: Take 10 mg by mouth daily. zinc gluconate 50 MG tablet 11/29/2021 at Unknown time Pharmacy/Pharmacist Yes Yes Sig: Take 50 mg by mouth daily. Facility-Administered Medications: None Allergies Cephalexin, Penicillins, Lanolin, Lisinopril, Neomycin, and Mupirocin Physical Exam Vitals: Patient Vitals for the past 8 hrs: BP Temp Pulse Resp SpO2 Height Weight 11/30/21 1451 -- -- 69 25 99 % 5' 7 (1.702 m) (!) 166 kg (366 lb) 11/30/21 1441 137/82 -- 63 18 97 % -- -- 11/30/21 1426 136/81 -- 73 19 99 % -- -- 11/30/21 1411 (!) 146/95 -- 72 24 98 % -- -- 11/30/21 1356 (!) 148/91 -- 63 -- 99 % -- -- 11/30/21 1345 (!) 158/80 -- 66 16 100 % -- -- 11/30/21 1326 (!) 159/89 -- 69 -- 99 % -- -- 11/30/21 1311 (!) 153/88 -- 63 -- 100 % -- -- 11/30/21 1213 (!) 161/92 -- 72 17 99 % -- -- 11/30/21 1211 -- 98.1 ??F (36.7 ??C) -- -- -- -- -- Constitutional: A/O x3, not in apparent distress HEENT: PERRLA Chest: Lungs b/l clear to ascultation, no wheezing, not in respiratory distress Cardiovascular: Irregularly Irregular RR, no murmurs appreciated Abdomen: Abdomen grossly obese : Not performed MSK: Pain and tender to palpation of middle thoracic area Extremities: B/L LE severe Lymphaedema, drains appreciated on B/L LE Labs/Imaging/Other Labs: Recent Labs 11/30/21 1237 SODIUM 139 K 4.3 CHLORIDE 108 BUN 19 CREATININE 0.55 GLUCOSE 89 No results for input(s): PH, PHV, PHCAP, PCO2, SKE4TXN, PCO2V, PYL2IQV, PO2, PO2ART, PO2V, PO2CAP inthe last 72 hours. Recent Labs 11/30/21 1237 ALKPHOS 86 BILIRUBINTOT 0.8 BILIRUBINDIR 0.3 ALT 15 AST 21 TPRO 6.7 ALB 3.0* Recent Labs 11/30/21 1237 WBC 4.9 HGB 13.8 HCT 41.7 Lab Results Component Value Date Troponin I <0.01 11/30/2021 Lab Results Component Value Date B Type Natr. Peptide 136 (H) 11/30/2021 EK11/30/2021 Atrial fibrillation Abnormal ECG When compared with ECG of 01-JAN-2018 16:37, Vent. rate has decreased BY 36 BPM CXR 11/30/2021: -No pneumothorax. -The heart is enlarged. -There is pulmonary vascular and interstitial edema with some parahilar pulmonary edema and small bilateral pleural effusions consistent with congestive heart failure. -No definite consolidation. - Scoliosis with degenerative change in the spine. Assessment/Plan 76 y.o. female w/ PMH long-standing persistent afib on warfarin, HTN, scoliosis, CEFERINO w/ cpap, and chronic BLE lymphedema, presenting to the ED on 11/30/2021 for mid-thoracic back pain radiating to the chest w/o associated SOB, and found to have cardiomegaly and b/l pulmonary edema on CXR, concerning for new-onset HF. Pulmonary edema 2/2 new-onset CHF? CXR 11/30/2021: pulmonary vascular and interstitial edema with some parahilar pulmonary edema and small bilateral pleural effusions consistent with congestive heart failure. BNP:136 w/o previous values.Awaiting ECHO to evaluate for CHF. Will try gentle diuresis with lasix 20 mg IV once. - give lasix 20mg IV one time - TTE today- awaiting results - Strict I/O - BW daily - Low salt diet Back pain radiating to chest Unknown etiology. EKG found no ischemic changes. Pt asx for SOB, lightheadedness, n/v. Pain does notfit typical ACS or aortic dissection description. Troponin negative once in the ED.CXR 11/30 showed no pneumothorax, but showed cardiomegaly and b/l pulmonary edema (discussed below). Awaiting ECHO to further evaluate. Possible scoliosis or MSK-related pain given that pain is only present when pt is lying down and improves w/ tylenol use. Low concern for cardiac etiology for this symptom - Repeat troponin - Lidocaine patch for pain control Chronic Issues: Chronic lymphedema: Drains present on b/l LE on exam. - order lymphedema therapy - order low fat, sodium restricted, gluten free diet Long-standing persistent Afib: EKG 11/30/2021 revealed currently in afib. Pt asx and rate stable. Pt takes warfarin 10mg qd. - Pharmacy consult for dosing warfarin (INR goal 2-3) HTN: BP: 137/82. Stable. Pt currently takes atenolol 25mg BID, losartan 50mg qd. - cont atenolol 25mg BID, losartan 50mg qd. CEFERINO: Pt uses CPAP. - cont w/ cpap use Seizure: Per pt, possibly had seizure in 2019 and was started on Keppra 500mg BID w/o recurrence - cont keppra 500mg bid FEN: Low fat, sodium restricted, gluten free PPx: Pt takes warfarin Lines/Catheters: B/L LE drains Level of Care: Dispo: After PT/OT evaluation, most likely home Code Status/Goals of Care: Full Patient to be formally staffed in AM. Dustin Parra [facility] MS3 I personally supervised, performed the exam and medical decision making, and agree with the medical student???s documentation, addended where needed. Elie Lim MD Internal Medicine Resident (PGY-1) [facility] Pager: [phone] Associated attestation - Reji Santacruz DO - 12/01/2021 4:37 PM CDT Date of service: 12/01/2021 I saw and evaluated the patient. I agree with Dr. Lim's (resident) note. Reviewed and confirmed HPI. Consistent with diastolic CHF exacerbation. CXR with pulmonary edema. Subjective DOMINGO improved with diuresis. Normal EF on echo with severely enlarged atria. EKG reviewed by me showing afib with no acute findings. Continue IV diuresis today. Wound care consult placed for sacral wound POA. Reji Santacruz DO documented in this encounter ED Notes Christiano Kam MD - 11/30/2021 1:05 PM CDT [facility] Emergency Department Attending Supervision Note I performed the yancey elements of history and exam, and agree with resident's findings and plan of care as discussed with Alberto Larkin MD. I have reviewed and agreed with the PMH, FH, SOC, ROS. Please see today's note by resident physician. Assessment: Chest pain - atypical Pulmonary edema - new Morbid obesity Plan: HEART score = 3 Carder Blankets IV insertion Re-check Vitals ECG Imaging: Plain Radiograph(s): chest Laboratory: CBC, Chem 8 and Troponin Meds: ASA Disposition: Obs given new CHF and CP General radiology studies were reviewed by me. This electronic signature covers the nursing and ancillary testing orders for this visit. Patient Vitals for the past 24 hrs: BP Temp Pulse Resp SpO2 11/30/21 1213 (!) 161/92 -- 72 17 99 % 11/30/21 1211 -- 98.1 ??F (36.7 ??C) -- -- -- Author: Christiano Kam MD ED Course as of 11/30/21 1529 Tue November 30, 2021 1450 Patient having ongoing chest pain. Heart score is free, but she has not had cardiac workup in with her age and risk factors with the pulmonary edema on chest x-ray, I am concerned enough that cardiac workup in the hospital would be reasonable. I discussed risks and benefits with the patient and whether she would prefer to have her workup completed as an inpatient or attempt to do so as an outpatient. Patient preferred to have the testing be done in patient and I believe that this is reasonable.Echocardiogram ordered from the emergency department, will discuss with Hospital Medicine [MS] 1522 Patient signed out pending medicine sign out Chest pain, preferring admission for cardiac work up. No previous cardiac w/u, new chest pain and pulmonary edema. [MS] 1523 Sign out received, assumed care of patient. Please see above for history, exam, initial work-up. Pending admission for cardiac work-up. [MM] 1529 Discussed the patient with the medicine team who agreed to facilitate admission. [MM] ED Course User Index [MM] Libertad Kiser PA-C [MS] Alberto Larkin MD Clinical Impressions as of 11/30/21 1529 Chest pain, unspecified type Acute pulmonary edema (HRC) Patient Vitals for the past 24 hrs: BP Temp Pulse Resp SpO2 11/30/21 1213 (!) 161/92 -- 72 17 99 % 11/30/21 1211 -- 98.1 ??F (36.7 ??C) -- -- -- Libertad Kiser PA-C - 11/30/2021 12:56 PM CDT [facility] Emergency Medicine Visit Note Chief Complaint: Chest Pain HPI Charlette Brush is a 76 y.o. female past medical history significant for atrial fibrillation, hypertension who presents with chest pain. Over last several days, patient has had intermittent chest pain that starts in her back and wraps around bilateral sides meeting at her sternum. Patient describes it as discomfort. Typically was happening during sleep, which occurred last night, however it recurred again today prompting her evaluation in the emergency department. Patient states pain has been improving with Tylenol, but when it returned this is when she called EMS. Patient denies any shortness of breath, dizziness, lightheadedness, nausea, vomiting, upper respiratory symptoms, fevers, or chills. Nonew rashes. Patient has never had similar pain to this. In addition to the above, I have personally reviewed any medications, allergies, problem list, medical history, surgical history and social history in the health record as of this visit. Review of Systems A complete review of systems was performed and is otherwise negative. Triage Vitals Temp 11/30/21 1211 98.1 ??F (36.7 ??C) Temp src -- Pulse 11/30/21 1213 72 Resp 11/30/21 1213 17 BP 11/30/21 1213 (!) 161/92 SpO2 11/30/21 1213 99 % Physical Exam Constitutional: Alert, interactive, appears comfortable HENT: NCAT Eyes: PERRL, EOM intact. No scleral icterus. Neck: No meningeal signs. CV: Irregularly irregular. Pulm: No respiratory distress. Clear breath sounds throughout all lung alicea. No wheezes, rhonchi, or rales. Abd: Soft, non-tender to palpation throughout all quadrants. No rigidity. MSK: Moves all extremities equally. No obvious deformity. Neuro: Alert and oriented. CN II-XII and motor grossly intact without focal neurologic deficits. Skin: Warm, dry, without rashes. Psych:Calm. Normal speech. Normal affect. MDM: 76 y.o. female with history as above. Vital signs reviewed notable hypertension, otherwise unremarkable. Differential diagnosis includes but is not limited to ACS, herpes zoster, pneumonia, pneumothorax, aortic dissection, esophageal rupture, musculoskeletal pain, costochondritis. Patient's pain r adiates around the flank ache, sounds most consistent with herpes zoster, however there is not any finding of this on my examination and her description of pain does not sound consistent with it. Considered aortic dissection with pain radiation, however, she does not describe it in a manner that is consistent with dissection and it radiates around and not through her chest. Lb in sounds atypical for acute coronary syndrome, is intermittent and relieved by Tylenol which is reassuring against this. Noinfectious symptoms suggestive of pneumonia with the bilateral nature of it in the band, less suspicious for pneumothorax. Will obtain basic cardiac testing. This is a been ongoing for several days, the refore I believe that single troponin is appropriate. EKG was obtained and patient is in atrial fibrillation. Her rate is controlled at 64. Intervals are normal. No evidence of ST segment changes, hyperacute T-waves, T-wave inversion, or Q-waves suggestive of acute ischemia. EKG largely unchanged fromprior study. HEART score before troponin is 3. Alberto Larkin MD ED Course as of 11/30/211528e November 30, 2021 1450 Patient having ongoing chest pain. Heart score is free, but she has not had cardiac workup in with her age and risk factors with the pulmonary edema on chest x-ray, I am concerned enough that cardiac workup in the hospital would be reasonable. I discussed risks and benefits with the patient and whether she would prefer to have her workup completed as an inpatient or attempt to do so as an outpatient. Patient preferred to have the testing be done in patient and I believe that this is reasonable.Echocardiogram ordered from the emergency department, will discuss with Hospital Medicine [MS] 1522 Patient signed out pending medicine sign out Chest pain, preferring admission for cardiac work up. No previous cardiac w/u, new chest pain and pulmonary edema. [MS] 1523 Sign out received, assumed care of patient. Please see above for history, exam, initial work-up. Pending admission for cardiac work-up. [MM] 1529 Discussed the patient with the medicine team who agreed to facilitate admission. [MM] ED Course User Index [MM] Libertad Kiser PA-C [MS] Alberto Larkin MD Clinical Impressions as of 11/30/21 152 Chest pain, unspecified type Acute pulmonary edema (HRC) documented in this encounter Plan of Treatment Scheduled Referrals Name Type Priority Associated Diagnoses Order S [facility] - patient Referral Routine Acute pulmonary edema Ordered: 12/03/2021 will be called in 3 days ([facility]) Cardiology Referral - Referral Routine Acute pulmonary amanda ma Ordered: 12/03/2021 Adults ([facility]) Home Care Referral Routine Acute pulmonary edema Ordere d: 12/03/2021 ([facility]) Home Care Referral Routine Generalized muscle Ordered: 12/03/2021 weakness Lymphedema Therapy Referral Routine Lymphedema Ordered: 12/03/2021 Home Care Referral Routine Generalized muscle Ordered: 12/03/2021 weakness Home Care Referral Routine Generalized muscle Ordered: 12/03/2021 weakness Lymphedema documented as of this encounter Procedures Procedure Name Priority Date/Time Associated Comments Diagnosis CBC AND DIFFERENTIAL Routine 12/03/2021 7:05 Resu lts for PANEL AM CDT this procedure are in the results section. COMPLETE BLOOD Routine 12/03/2021 7:05 Results fo r COUNT-W/DIFF AM CDT this procedure are in the results section. BASIC METABOLIC PANEL Routine 12/03/2021 7:05 Res ults for AM CDT this procedure are in the results section. MAGNESIUM Routine 12/03/2021 7:05 Results for AM CDT this procedure are in the results section. INR/PROTIME Routine 12/03/2021 7:05 Results for AM CDT this procedure are in the results section. CBC AND DIFFERENTIAL Routine 12/02/2021 7:58 Resu lts for PANEL AM CDT this procedure are in the results section. COMPLETE BLOOD Routine 12/02/2021 7:58 Results fo r COUNT-W/DIFF AM CDT this procedure are in the results section. BASIC METABOLIC PANEL Routine 12/02/2021 7:58 Res ults for AM CDT this procedure are in the results section. MAGNESIUM Routine 12/02/2021 7:58 Results for AM CDT this procedure are in the results section. INR/PROTIME Routine 12/02/2021 7:58 Results for AM CDT this procedure are in the results section. BASIC METABOLIC PANEL Specified Time 12/01/2021 8:40 R esults for PM CDT this procedure are in the results section. MAGNESIUM Specified Time 12/01/2021 8:40 Results fo r PM CDT this procedure are in the results section. XR PORTABLE CHEST 1 VIEW Routine 12/01/2021 8:38 Results for AM CDT this procedure are in the results section. IV INSERTION(LAB TO Routine 12/01/2021 7:11 Resul ts for PERFORM) AM CDT this procedure are in the results section. CBC AND DIFFERENTIAL Routine 12/01/2021 7:11 Resu lts for PANEL AM CDT this procedure are in the results section. COMPLETE BLOOD Routine 12/01/2021 7:11 Results fo r COUNT-W/DIFF AM CDT this procedure are in the results section. BASIC METABOLIC PANEL Routine 12/01/2021 7:11 Res ults for AM CDT this procedure are in the results section. MAGNESIUM Routine 12/01/2021 7:11 Results for AM CDT this procedure are in the results section. HGB A1C Routine 12/01/2021 7:11 Results for AM CDT this procedure are in the results section. INR/PROTIME Routine 12/01/2021 7:11 Results for AM CDT this procedure are in the results section. ECG 12-LEAD ROUTINE(LAB STAT 12/01/2021 Resu lts for PERFORM) 12:34 AM CDT this procedure are in the results section. [id number] ELECTROCARDIOGRAM STAT 12/01/2021 Resu lts for TRACING 12:29 AM CDT this procedure are in the results section. TROPONIN I STAT 11/30/2021 6:42 Results for PM CDT this procedure are in the results section. INR/PROTIME STAT 11/30/2021 6:42 Results for PM CDT this procedure are in the results section. EJECTION FRACTION Routine 11/30/2021 3:05 Results for PM CDT this procedure are in the results section. CARDIAC ROUTINE Routine 11/30/2021 3:05 Results f or ECHOCARDIOGRAM PM CDT this procedur e are in the results section. 2019 NOVEL CORONAVIRUS STAT 11/30/2021 2:23 Re sults for PM CDT this procedure are in the results section. XR CHEST 2 VIEWS STAT 11/30/2021 Results for 12:59 PM CDT this procedure are in the results section. LIPID PANEL AND DIRECT Add-On 11/30/2021 Resul ts for LDL(IF NEEDED) 12:37 PM CDT this procedur e are in the results section. BRAIN NATRIURETIC STAT Add-On 11/30/2021 Results fo r PEPTIDE (BNP) 12:37 PM CDT this procedure are in the results section. LIVER PANEL(HEPATIC STAT Add-On 11/30/2021 Results for FUNCTION PANEL) 12:37 PM CDT this procedu re are in the results section. BASIC METABOLIC PANEL STAT 11/30/2021 Result s for 12:37 PM CDT this procedure are in the results section. TROPONIN I STAT 11/30/2021 Results for 12:37 PM CDT this procedure are in the results section. COMPLETE BLOOD COUNT-NO STAT 11/30/2021 Resu lts for DIFF 12:37 PM CDT this procedure are in the results section. [id number] ELECTROCARDIOGRAM STAT 11/30/2021 Resu lts for TRACING 12:26 PM CDT this procedure are in the results section. documented in this encounter Results Complete Blood Count-W/Diff (12/03/2021 7:05 AM CDT) P athologist Signature WBC 5.9 3.5 - 10.5 12/03/2021 [facility] x10(9)/L 7:22 AM CDT [facility] RBC 4.74 3.90 - 12/03/2021 [facility] 5.03 7:22 AM CDT [facility] x10(12)/L Hemoglobin 14.5 12.0 - 12/03/2021 [facility] 15.5 g/dL 7:22 AM CDT [facility] HCT 42.9 34.9 - 12/03/2021 [facility] 44.5 % 7:22 AM CDT [facility] MCV 90.5 80.0 - 12/03/2021 [facility] 100.0 fL 7:22 AM CDT [facility] MCH 30.6 27.6 - 12/03/2021 [facility] 33.3 pg 7:22 AM CDT [facility] MCHC 33.8 31.5 - 12/03/2021 [facility] 35.2 g/dL 7:22 AM CDT [facility] RDW 13.8 11.9 - 12/03/2021 [facility] 15.5 % 7:22 AM CDT [facility] Platelets 236 150 - 450 12/03/2021 [facility] x10(9)/L 7:22 AM CDT [facility]OS[facility] Automated NRBC 0 <=0 /100 12/03/2021 [facility] WBC 7:22 AM CDT [facility] Neutrophil 3.7 1.7 - 7.0 12/03/2021 [facility] Absolute 10(9)/L 7:22 AM CDT [facility] Lymphocyte 1.3 1.0 - 4.8 12/03/2021 [facility] Absolute 10(9)/L 7:22 AM CDT [facility] Monocytes 0.6 0.2 - 0.9 12/03/2021 [facility] Absolute 10(9)/L 7:22 AM CDT [facility] Eosinophil 0.2 0.0 - 0.5 12/03/2021 [facility] Absolute 10(9)/L 7:22 AM CDT [facility] Basophil 0.0 0.0 - 0.3 12/03/2021 [facility] Absolute 10(9)/L 7:22 AM CDT [facility] Immature Gran % 0.0 0.0 - 0.5 12/03/2021 [facility] % 7:22 AM CDT [facility]OSPITAL Specimen Anatomical Collection Method / Collection Time Recei yudy Time (Source) Location / Volume Laterality Blood Venipuncture / 12/03/2021 7:05 12/03/2021 7:16 Unknown AM CDT AM CDT Angelina Stephen MD LAB_1 Performing Organization Address City/[facility] Phon e Number [address] [address] Magnesium (12/03/2021 7:05 AM CDT) P athologist Signature Magnesium 2.2 1.6 - 2.6 12/03/2021 [facility] mg/dL 7:50 AM CDT [facility]PITAL Specimen Anatomical Collection Method / Collection Time Recei yudy Time (Source) Location / Volume Laterality Blood Venipuncture / 12/03/2021 7:05 12/03/2021 7:16 Unknown AM CDT AM CDT Reji Santacruz DO LAB_1 Performing Organization Address [facility] Phon e Number [address] [phone] (ABNORMAL) Basic Metabolic Panel (12/03/2021 7:05 AM CDT) Analysis Performed At Patho logist Time Signature Sodium 136 136 - 145 12/03/2021 [facility] mmol/L 7:50 AM CDT [facility] Potassium 4.2 3.5 - 5.1 12/03/2021 [facility] mmol/L 7:50 AM T [facility]PITAL Chloride 105 98 - 109 12/03/2021 [facility] mmol/L 7:50 AM T [facility] CO2 25 20 - 29 12/03/2021 [facility] mmol/L 7:50 AM T [facility] Anion Gap 6 (L) 7 - 16 12/03/2021 [facility] mmol/L 7:50 AM T [facility] Calcium 8.7 8.4 - 10.4 12/03/2021 [facility] mg/dL 7:50 AM [facility] BUN 19 7 - 26 12/03/2021 [facility] mg/dL 7:50 AM T [facility] Creatinine 0.54 (L) 0.55 - 12/03/2021 [facility] 1.02 mg/dL 7:50 AM T [facility] GFR, Estimated >60 >60 12/03/2021 [facility] mL/min/1.7 7:50 AM [facility] 3m2 Glucose 98 70 - 100 12/03/2021 [facility] mg/dL 7:50 AM T [facility]OSPITAL Comment: The given reference range is fo r the fasting state. Non-fasting reference range for glucose is 70 - 180 mg/dL. Specimen Anatomical Collection Method / Collection Time Recei yudy Time (Source) Location / Volume Laterality Blood Venipuncture / 12/03/2021 7:12/03/2021 7:16 Unknown AM CDT AM CDT Angelina Stephen MD LAB_1 Performing Organization Address City/State/ZIP Code Phon e Number [address] [address] (ABNORMAL) INR/Protime (12/03/2021 7:05 AM CDT) P athologist Signature Protime 30.5 (H) 11.8 - 14.6 12/03/2021 [facility] Seconds 7:31 AM T HOSPITAL INR 3.0 (H) 0.9 - 1.1 12/03/2021 [facility] 7:31 AM T HOSPITAL Specimen Anatomical Collection Method / Collection Time Recei yudy Time (Source) Location / Volume Laterality Blood Venipuncture / 12/03/2021 7:05 12/03/2021 7:16 Unknown AM CDT AM CDT [facility] - 12/03/2021 7:31 AM CD T Therapeutic range determined by protocol established by anticoagulation provider. Angelina Stephen MD LAB_1 Performing Organization Address City/[facility]/ZIP Code Phon e Number [address] [address] Magnesium (12/02/2021 7:58 AM CDT) athologist Signature Magnesium 2.0 1.6 - 2.6 12/02/2021 [facility] mg/dL 8:44 AM CDT [facility]OSPITAL Specimen Anatomical Collection Method / Collection Time Recei yudy Time (Source) Location / Volume Laterality Blood Venipuncture / 12/02/2021 7:58 12/02/2021 8:05 Unknown AM CDT AM CDT Reji Santacruz DO LAB_1 Performing Organization Address [facility] Code Phon e Number [address] [address] Complete Blood Count-W/Diff (12/02/2021 7:58 AM CDT) athologist Signature WBC 4.9 3.5 - 10.5 12/02/2021 [facility] x10(9)/L 8:12 AM CDT [facility]OSPITAL RBC 4.71 3.90 - 12/02/2021 [facility] 5.03 8:12 AM CDT [facility] x10(12)/L Hemoglobin 14.2 12.0 - 12/02/2021 [facility] 15.5 g/dL 8:12 AM CDT [facility]OSPITAL HCT 42.4 34.9 - 12/02/2021 [facility] 44.5 % 8:12 AM CDT [facility]OSPITAL MCV 90.0 80.0 - 12/02/2021 [facility] 100.0 fL 8:12 AM CDT [facility]OSPITAL MCH 30.1 27.6 - 12/02/2021 [facility] 33.3 pg 8:12 AM CDT [facility]OSPITAL MCHC 33.5 31.5 - 12/02/2021 [facility] 35.2 g/dL 8:12 AM CDT [facility]OSP[facility] RDW 13.6 11.9 - 12/02/2021 [facility] 15.5 % 8:12 AM CDT [facility]OSP[facility] Platelets 245 150 - 450 12/02/2021 [facility] x10(9)/L 8:12 AM CDT [facility]OSPITAL Automated NRBC 0 <=0 /100 12/02/2021 [facility] WBC 8:12 AM CDT [facility]OS[facility] Neutrophil 2.9 1.7 - 7.0 12/02/2021 [facility] Absolute 10(9)/L 8:12 AM CDT HOSPITAL Lymphocyte 1.3 1.0 - 4.8 12/02/2021 [facility] Absolute 10(9)/L 8:12 AM CDT [facility]OSPITAL Monocytes 0.6 0.2 - 0.9 12/02/2021 [facility] Absolute 10(9)/L 8:12 AM CDT [facility]OSPITAL Eosinophil 0.1 0.0 - 0.5 12/02/2021 [facility] Absolute 10(9)/L 8:12 AM CDT [facility]OSPITAL Basophil 0.0 0.0 - 0.3 12/02/2021 [facility] Absolute 10(9)/L 8:12 AM CDT HOSPITAL Immature Gran % 0.0 0.0 - 0.5 12/02/2021 [facility] % 8:12 AM CDT [facility]OSPITAL Specimen Anatomical Collection Method / Collection Time Recei yudy Time (Source) Location / Volume Laterality Blood Venipuncture / 12/02/2021 7:58 12/02/2021 8:06 Unknown AM CDT AM CDT Angelina Stephen MD LAB_1 Performing Organization Address City/State/[place] [address] (ABNORMAL) Basic Metabolic Panel (12/02/2021 7:58 AM CDT) Analysis Performed At Patho logist Time Signature Sodium 137 136 - 145 12/02/2021 [facility] mmol/L 8:44 AM CDT [facility]OSPITAL Potassium 4.4 3.5 - 5.1 12/02/2021 [facility] mmol/L 8:44 AM CDT [facility]OSPITAL Chloride 105 98 - 109 12/02/2021 [facility] mmol/L 8:44 AM CDT [facility]OSPITAL CO2 26 20 - 29 12/02/2021 [facility] mmol/L 8:44 AM CDT [facility]OSPITAL Anion Gap 6 (L) 7 - 16 12/02/2021 [facility] mmol/L 8:44 AM CDT [facility]OSPITAL Calcium 8.9 8.4 - 10.4 12/02/2021 [facility] mg/dL 8:44 AM CDT [facility]OSP[facility] BUN 19 7 - 26 12/02/2021 [facility] mg/dL 8:44 AM CDT [facility]OSPITAL Creatinine 0.53 (L) 0.55 - 12/02/2021 [facility] 1.02 mg/dL 8:44 AM T HOSPITAL GFR, Estimated >60 >60 12/02/2021 [facility] mL/min/1.7 8:44 AM [facility] 3m2 Glucose 96 70 - 100 12/02/2021 [facility] mg/dL 8:44 AM T [facility] Comment: The given reference range is fo r the fasting state. Non-fasting reference range for glucose is 70 - 180 mg/dL. Specimen Anatomical Collection Method / Collection Time Recei yudy Time (Source) Location / Volume Laterality Blood Venipuncture / 12/02/2021 7:58 12/02/2021 8:05 Unknown AM CDT AM CDT Angelina Stephen MD LAB_1 Performing Organization Address [facility] e [address] [address] (ABNORMAL) INR/Protime (12/02/2021 7:58 AM CDT) P athologist Signature Protime 30.9 (H) 11.8 - 14.6 12/02/2021 [facility] Seconds 8:21 AM T HOSPITAL INR 3.0 (H) 0.9 - 1.1 12/02/2021 [facility] 8:21 AM T [facility] Specimen Anatomical Collection Method / Collection Time Recei yudy Time (Source) Location / Volume Laterality Blood Venipuncture / 12/02/2021 7:58 12/02/2021 8:05 Unknown AM CDT AM CDT [facility] - 12/02/2021 8:21 AM CD T Therapeutic range determined by protocol established by anticoagulation provider. Angelina Stephen MD LAB_1 Performing Organization Address [facility] e Number [address] [address] Magnesium (12/01/2021 8:40 PM CDT) P athologist Signature Magnesium 2.0 1.6 - 2.6 12/01/2021 [facility] mg/dL 9:26 PM T HOSPITAL Specimen Anatomical Collection Method / Collection Time Recei yudy Time (Source) Location / Volume Laterality Blood Venipuncture / 12/01/2021 8:40 12/01/2021 8:54 Unknown PM CDT PM CDT Reji Doni Santacruz DO LAB_1 Performing Organization Address City/[facility]/ZIP [facility] Phon e Number [facility] [address] [place] [address] (ABNORMAL) Basic Metabolic Panel (12/01/2021 8:40 PM CDT) athologist Signature Sodium 140 136 - 145 12/01/2021 [facility] mmol/L 9:26 PM T [facility] Potassium 4.3 3.5 - 5.1 12/01/2021 [facility] mmol/L 9:26 PM T HOSPITAL Comment: Specimen slightly hemolyzed. He molysis may affect result. Chloride 103 98 - 109 mmol/L 12/01/2021 9:26 PM CDT [facility] CO2 25 20 - 29 mmol/L 12/01/2021 9:26 PM T [facility] Anion Gap 12 7 - 16 mmol/L 12/01/2021 9:26 PM [facility] Calcium 9.9 8.4 - 10.4 mg/dL 12/01/2021 9:26 PM [facility] BUN 17 7 - 26 mg/dL 12/01/2021 9:26 PM [facility] Creatinine 0.51 (L) 0.55 - 1.02 mg/dL 12/01/2021 9:26 PM [facility] GFR, Estimated >60 >60 mL/min/1.73m2 12/01/2021 9:26 P [facility] Glucose 93 70 - 100 mg/dL 12/01/2021 9:26 PM T [facility] Comment: The given reference range is fo r the fasting state. Non-fasting reference range for glucose is 70 - 180 mg/dL. Specimen Anatomical Collection Method / Collection Time Recei yudy Time (Source) Location / Volume Laterality Blood Venipuncture / 12/01/2021 8:40 12/01/2021 8:54 Unknown PM CDT PM CDT Reji Marion Noam DO LAB_1 Performing Organization Address [facility]/ZIP [facility] Phon e Number [facility] [address] [place] [address] XR Portable Chest 1 View (12/01/2021 8:38 AM CDT) Anatomical Region Laterality Modality Chest, Lung Computed Radiography Specimen (Source) Anatomical Collection Method Collection Time Re ceived Time Location / / Volume Laterality 12/01/2021 8:38 AM CDT Narrative 12/01/2021 10:58 AM CDT EXAM: XR PORTABLE CHEST 1 VIEW LOCATION: [facility] DATE/TIME: 12/01/2021, 8:38 AM INDICATION: Volume [...] EXAM: XR PORTABLE CHEST 1 VIEW LOCATION: [facility] DATE/TIME: 12/01/2021, 8:38 AM INDICATION: Volume overload. HFpEF. COMPARISON: 11/30/2021. IMPRESSION: Cardiac silhouette size is e nlarged. There is moderate pulmonary edema. These findings are similar to prior study and compatible with congestive heart failure. No pneumothorax or pleural effusion. Reji Santacruz DO RAD PORTABLE IV Insertion, LST Perform (12/01/2021 7:11 AM CDT) athologist Signature IV INSERTION, Done 12/01/2021 [facility] LST PERFORM 9:02 AM CDT HOSPITAL (LAB) Specimen Anatomical Collection Method / Collection Time Recei yudy Time (Source) Location / Volume Laterality Other Specimen Venipuncture / 12/01/2021 7:11 12/02/19 22 7:24 Type Unknown AM CDT AM CDT Reji Santacruz DO LAB_1 Performing Organization Address City/State/[place] [address] Complete Blood Count-W/Diff (12/01/2021 7:11 AM CDT) P athologist Signature WBC 4.8 3.5 - 10.5 12/01/2021 [facility] x10(9)/L 7:38 AM CDT HOSPITAL RBC 4.55 3.90 - 12/01/2021 [facility] 5.03 7:38 AM CDT [facility]OSPITAL x10(12)/L Hemoglobin 14.0 12.0 - 12/01/2021 [facility] 15.5 g/dL 7:38 AM CDT [facility]OSPITAL HCT 41.6 34.9 - 12/01/2021 [facility] 44.5 % 7:38 AM CDT [facility]OSPITAL MCV 91.4 80.0 - 12/01/2021 [facility] 100.0 fL 7:38 AM CDT [facility]OSPITAL MCH 30.8 27.6 - 12/01/2021 [facility] 33.3 pg 7:38 AM CDT [facility]OSPITAL MCHC 33.7 31.5 - 12/01/2021 [facility] 35.2 g/dL 7:38 AM CDT [facility]OSPITAL RDW 13.7 11.9 - 12/01/2021 [facility] 15.5 % 7:38 AM CDT HOSPITAL Platelets 225 150 - 450 12/01/2021 [facility] x10(9)/L 7:38 AM CDT HOSPITAL Automated NRBC 0 <=0 /100 12/01/2021 [facility] WBC 7:38 AM CDT HOSPITAL Neutrophil 2.9 1.7 - 7.0 12/01/2021 [facility] Absolute 10(9)/L 7:38 AM CDT HOSPITAL Lymphocyte 1.2 1.0 - 4.8 12/01/2021 [facility] Absolute 10(9)/L 7:38 AM CDT HOSPITAL Monocytes 0.5 0.2 - 0.9 12/01/2021 [facility] Absolute 10(9)/L 7:38 AM CDT HOSPITAL Eosinophil 0.1 0.0 - 0.5 12/01/2021 [facility] Absolute 10(9)/L 7:38 AM CDT HOSPITAL Basophil 0.0 0.0 - 0.3 12/01/2021 [facility] Absolute 10(9)/L 7:38 AM CDT HOSPITAL Immature Gran % 0.0 0.0 - 0.5 12/01/2021 [facility] % 7:38 AM CDT HOSPITAL Specimen Anatomical Collection Method / Collection Time Recei yudy Time (Source) Location / Volume Laterality Blood Venipuncture / 12/01/2021 7:11 12/01/2021 7:24 Unknown AM CDT AM CDT Angelina Stephen MD LAB_1 Performing Organization Address City/State/ZIP Code Phon e Number [address] [address] (ABNORMAL) Basic Metabolic Panel (12/01/2021 7:11 AM CDT) athologist Signature Sodium 140 136 - 145 12/01/2021 [facility] mmol/L 8:22 AM [facility] Potassium 4.4 3.5 - 5.1 12/01/2021 [facility] mmol/L 8:22 AM [facility] Comment: Specimen slightly hemolyzed. He molysis may affect result. Chloride 107 98 - 109 mmol/L 12/01/2021 8:22 AM [facility] CO2 23 20 - 29 mmol/L 12/01/2021 8:22 AM [facility] Anion Gap 10 7 - 16 mmol/L 12/01/2021 8:22 AM [facility] Calcium 8.9 8.4 - 10.4 mg/dL 12/01/2021 8:22 AM [facility] BUN 14 7 - 26 mg/dL 12/01/2021 8:22 AM [facility] Creatinine 0.50 (L) 0.55 - 1.02 mg/dL 12/01/2021 8:22 AM [facility] GFR, Estimated >60 >60 mL/min/1.73m2 12/01/2021 8:22 A [facility] Glucose 89 70 - 100 mg/dL 12/01/2021 8:22 AM [facility] Comment: The given reference range is fo r the fasting state. Non-fasting reference range for glucose is 70 - 180 mg/dL. Specimen Anatomical Collection Method / Collection Time Recei yudy Time (Source) Location / Volume Laterality Blood Venipuncture / 12/01/2021 7:11 12/01/2021 7:25 Unknown AM CDT AM CDT Angelina Stephen MD LAB_1 Performing Organization Address City/State/ZIP Code Phon e Number [facility] [address] [place] [address] (ABNORMAL) INR/Protime (12/01/2021 7:11 AM CDT) athologist Signature Protime 28.4 (H) 11.8 - 14.6 12/01/2021 [facility] Seconds 7:47 AM CDT HOSPITAL INR 2.7 (H) 0.9 - 1.1 12/01/2021 [facility] 7:47 AM CDT HOSPITAL Specimen Anatomical Collection Method Collection Time Receive d Time (Source) Location / / Volume Laterality Blood IV Start / Unknown 12/01/2021 7:11 AM 7:25 CDT AM CDT [facility] 12/01/2021 7:47 AM CD T Therapeutic range determined by protocol established by anticoagulation provider. Angelina Stephen MD LAB_1 Performing Organization Address [facility]/ZIP Code Phon e Number [address] [address] Magnesium (12/01/2021 7:11 AM CDT) P athologist Signature Magnesium 1.8 1.6 - 2.6 12/01/2021 [facility] mg/dL 8:22 AM CDT HOSPITAL Specimen Anatomical Collection Method / Collection Time Recei yudy Time (Source) Location / Volume Laterality Blood Venipuncture / 12/01/2021 7:11 12/01/2021 7:25 Unknown AM CDT AM CDT Angelina Stephen MD LAB_1 Performing Organization Address [facility] Code Phon e Number [address] [address] Hgb A1C (12/01/2021 7:11 AM CDT) [facility] gist Method Time Signature Hemoglobin A1C 5.5 <=5.6 % 12/01/2021 [facility] 11:20 AM CDT [facility] Specimen Anatomical Collection Method / Collection Time Recei yudy Time (Source) Location / Volume Laterality Blood Venipuncture / 12/01/2021 7:11 12/01/2021 7:24 Unknown AM CDT AM CDT Angelina Stephen MD LAB_1 Performing Organization Address City/[facility]/ZIP Code Phon e Number [facility] [address] [address] ECG 12-Lead Routine (Lab perform) (12/01/2021 12:34 AM CDT) athologist Signature EKG Completed 12/01/2021 [facility] 5:03 AM CDT HOSPITAL Specimen Anatomical Collection Method Collection Time Receive d Time (Source) Location / / Volume Laterality Other Specimen Non-blood 12/01/2021 12:34 3:36 Type Collection / AM CDT AM CDT Unknown Angelina Stephen MD LAB_1 Performing Organization Address City/State/ZIP Code Phon e Number [facility] [address] [place] [address] Ecg 12-Lead Routine (MUSE) (12/01/2021 12:29 AM CDT) P athologist Signature Ventricular Rate 60 BPM [facility] Atrial Rate 394 BPM [facility] QRS Duration 90 ms [facility] QT 450 ms [facility] QTc 450 ms [facility] R [place] 51 degrees [facility] T [place] 27 degrees [facility] Specimen (Source) Anatomical Collection Method Collection Time Re ceived Time Location / / Volume Laterality 12/01/2021 12:29 AM CDT Narrative [facility] - 12/01/2021 1:33 PM CDT Atrial fibrillation Nonspecific ST abnormality Abnormal ECG When compared with ECG of 30-NOV-2021 12 :26, No significant change was found Confirmed by Chuck Coley ([id number]) on 1:33:09 PM Procedure Note Chuck Coley MD - 12/01/2021Format ting of this note might be different from the original. Atrial fibrillation Nonspecific ST abnormality Abnormal ECG When compared with ECG of 30-NOV-2021 12 :26, No significant change was found Confirmed by Chuck Coley ([id number]) on 1:33:09 PM Angelina Stephen MD EKG Performing Organization Address City/State/ZIP Code Phon e Number [facility] [address] [place] [address] (ABNORMAL) INR/Protime (11/30/2021 6:42 PM CDT) P athologist Signature Protime 28.0 (H) 11.8 - 14.6 11/30/2021 [facility] Seconds 7:01 PM CDT HOSPITAL INR 2.6 (H) 0.9 - 1.1 11/30/2021 [facility] 7:01 PM CDT HOSPITAL Specimen Anatomical Collection Method / Collection Time Recei yudy Time (Source) Location / Volume Laterality Blood Venipuncture / 11/30/2021 6:42 11/30/2021 6:47 Unknown PM CDT PM CDT [facility] - 11/30/2021 7:01 PM CD T Therapeutic range determined by protocol established by anticoagulation provider. Angelina Stephen MD LAB_1 Performing Organization Address [facility] e Number [address] [address] TROPONIN I (11/30/2021 6:42 PM CDT) athologist Signature Troponin I 0.01 0.00 - 0.03 11/30/2021 [facility] ng/mL 7:22 PM CDT HOSPITAL Specimen Anatomical Collection Method / Collection Time Recei yudy Time (Source) Location / Volume Laterality Blood Venipuncture / 11/30/2021 6:42 11/30/2021 6:46 Unknown PM CDT PM CDT Angelina Stephen MD LAB_1 Performing Organization Address [facility] Phon e Number [address] [address] EJECTION FRACTION (11/30/2021 3:05 PM CDT) athologist Signature EF 60 % PROS[facility] EF test type ECHO [facility] Specimen (Source) Anatomical Collection Method Collection Time Re ceived Time Location / / Volume Laterality 11/30/2021 3:05 PM CDT Christiano Kam MD [facility] [employer]/RH Performing Organization Address [facility] e Number [facility] [address] [place] [address] Cardiac Routine Echocardiogram (11/30/2021 3:05 PM CDT) Specimen (Source) Anatomical Collection Method Collection Time Re ceived Time Location / / Volume Laterality 11/30/2021 3:05 PM CDT Narrative [facility] - 11/30/2021 6:18 PM CDT Summary ??1. Echo ??11/30/2021 3:05:00 PM. ??2. Atrial fibrillation during study. ??3. Mild concentric LVH. ??4. Normal LV size and systolic functi on, EF 60%. ??5. Normal RV size and function. ??6. Moderate to severe biatrial enlarg ement. ??7. Mild mitral regurgitation. ??8. Moderate TR, Estimated RV systolic pressure=42 mmHg. Report Signatures Finalized by Andrés Dangelo on 12/01/19 06:17 PM Procedure Note Andrés Yancey MD - 11/30/2021Format ting of this note might be different from the original. Summary 1. Echo 11/30/2021 3:05:00 PM. 2. Atrial fibrillation during study. 3. Mild concentric LVH. 4. Normal LV size and systolic function , EF 60%. 5. Normal RV size and function. 6. Moderate to severe biatrial enlargem ent. 7. Mild mitral regurgitation. 8. Moderate TR, Estimated RV systolic p ressure=42 mmHg. Report Signatures Finalized by Andrés Yancey on 11/30/2021 06:17 PM Christiano Kam MD [facility] ECHO/RH Performing Organization Address City/[facility]/ZIP Code Phon e Number [facility] [address] [place] [id number] COVID (Rapid Yellow Kit, Nares) - Asymptomatic MH/[facility] ED ONLY (11/30/2021 2:23 PM CDT) [facility] Method Time Signature COVID-19 Not Not 11/30/2021 [facility] Interpretation Detected Detected 3:10 PM CDT HOSPITAL Source Nares, left 11/30/2021 [facility] and right 3:10 PM CDT HOSPITAL Specimen Anatomical Collection Method Collection Time Receive d Time (Source) Location / / Volume Laterality Swab (Source ENTIRE ANTERIOR Non-blood 11/30/2021 2:23 PM 2021 2:27 Required) NARIS / Unknown Collection / CDT PM CDT Unknown [facility] - 11/30/2021 3:10 PM CD T Test performed by nucleic acid amplification technology (NAAT). This test has been authorized by the FDA under an Emergency Use Authorization (EUA) for use by authorized laboratories. Christiano Kam MD LAB_1 Performing Organization Address City/[facility]/ZIP Code Phon e Number [address] [address] XR Chest 2 Views (11/30/2021 12:59 PM CDT) Anatomical Region Laterality Modality Chest, Lung Computed Radiography Specimen (Source) Anatomical Collection Method Collection Time Re ceived Time Location / / Volume Laterality 11/30/2021 12:59 PM CDT Narrative 11/30/2021 1:03 PM CDT EXAM: XR CHEST 2 VIEWS LOCATION: [facility] DATE/TIME: 11/30/2021 12:59 PM INDICATION: Chest pain COMPARISON: 01/01/2018. IMPRESSION: No pneumothorax. The heart i s enlarged. There is pulmonary vascular and interstitial edema with some parahilar pulmonary edema and small bilateral pleural effusions consistent with congestiv e heart failure. No definite consolidati on. Scoliosis with degenerative change in the spine. Procedure Note Solomon Toscano MD - 11/30/2021Format ting of this note might be different from the original. EXAM: XR CHEST 2 VIEWS LOCATION: [facility] DATE/TIME: 11/30/2021 12:59 PM INDICATION: Chest pain COMPARISON: 01/01/2018. IMPRESSION: No pneumothorax. The heart i s enlarged. There is pulmonary vascular and interstitial edema with some parahilar pulmonary edema and small bilateral pleural effusions consistent with congestive heart failure. No definite consolidation. Scol iosis with degenerative change in the spine. Christiano Kam MD RAD GD (ABNORMAL) Liver Panel(Hepatic Function Panel) (11/30/2021 12:37 PM CDT) Analysis Performed At Patho logist Time Signature Alkaline 86 40 - 150 11/30/2021 [facility] Phosphatase U/L 4:20 PM CDT [facility] Bilirubin, Total 0.8 0.2 - 1.2 11/30/2021 [facility] mg/dL 4:20 PM CDT [facility]ITAL Bilirubin, 0.3 0.0 - 0.5 11/30/2021 [facility] Direct mg/dL 4:20 PM CDT [facility] AST (SGOT) 21 10 - 40 11/30/2021 [facility] U/L 4:20 PM CDT [facility] ALT (SGPT) 15 0 - 55 U/L 11/30/2021 [facility] 4:20 PM CDT [facility] Protein, Total 6.7 6.4 - 8.3 11/30/2021 [facility] g/dL 4:20 PM CDT [facility] Albumin 3.0 (L) 3.5 - 5.0 11/30/2021 [facility] g/dL 4:20 PM CDT [facility] Specimen Anatomical Collection Method / Collection Time Recei yudy Time (Source) Location / Volume Laterality Blood Venipuncture / 11/30/2021 12:37 2 Unknown PM CDT 12:44 PM CDT Angelina Stephen MD LAB_1 Performing Organization Address [facility]/[address] [address] Lipid Panel and Direct LDL(If Needed) (11/30/2021 12:37 PM CDT) athologist Signature Cholesterol 122 0 - 199 11/30/2021 [facility] mg/dL 4:20 PM CDT [facility]OSPITAL Triglyceride 80 <=149 11/30/2021 [facility] mg/dL 4:20 PM CDT [facility] HDL Cholesterol 45 >=40 mg/dL 11/30/2021 [facility] 4:20 PM CDT [facility] LDL, Calculated 61 <130 mg/dL 11/30/2021 [facility] 4:20 PM CDT [facility] Non HDL Chol, 77 <=159 11/30/2021 [facility] Calculated mg/dL 4:20 PM CDT [facility]OSPITAL Cholesterol/HDL 2.7 11/30/2021 [facility] Ratio 4:20 PM CDT [facility] Specimen Anatomical Collection Method / Collection Time Recei yudy Time (Source) Location / Volume Laterality Blood Venipuncture / 11/30/2021 12:37 2 Unknown PM CDT 12:44 PM CDT Angelina Stephen MD LAB_1 Performing Organization Address [facility] e Number [address] [address] (ABNORMAL) B-Type Natriuretic Peptide (11/30/2021 12:37 PM CDT) athologist Signature B Type Natr. 136 (H) <=99 pg/mL 11/30/2021 [facility] Peptide 2:33 PM CDT [facility]OSPITAL Specimen Anatomical Collection Method / Collection Time Recei yudy Time (Source) Location / Volume Laterality Blood Venipuncture / 11/30/2021 12:37 2 Unknown PM CDT 12:44 PM CDT Christiano Kam MD LAB_1 Performing Organization Address [facility]/ZIP [facility] Phon e Number [address] [address] Troponin I (11/30/2021 12:37 PM CDT) athologist Signature Troponin I <0.01 0.00 - 0.03 11/30/2021 [facility] ng/mL 1:22 PM CDT [facility]OSPITAL Specimen Anatomical Collection Method / Collection Time Recei yudy Time (Source) Location / Volume Laterality Blood Venipuncture / 11/30/2021 12:37 2 Unknown PM CDT 12:44 PM CDT Christiano Kam MD LAB_1 Performing Organization Address [facility] e Number [address] [address] Complete Blood Count -no Diff (11/30/2021 12:37 PM CDT) athologist Signature WBC 4.9 3.5 - 10.5 11/30/2021 [facility] x10(9)/L 12:55 PM CDT HOSPITAL RBC 4.55 3.90 - 11/30/2021 [facility] 5.03 12:55 PM CDT [facility]OSPITAL x10(12)/L Hemoglobin 13.8 12.0 - 11/30/2021 [facility] 15.5 g/dL 12:55 PM CDT [facility]OSPITAL HCT 41.7 34.9 - 11/30/2021 [facility] 44.5 % 12:55 PM CDT HOSPITAL MCV 91.6 80.0 - 11/30/2021 [facility] 100.0 fL 12:55 PM CDT HOSPITAL MCH 30.3 27.6 - 11/30/2021 [facility] 33.3 pg 12:55 PM CDT HOSPITAL MCHC 33.1 31.5 - 11/30/2021 [facility] 35.2 g/dL 12:55 PM CDT HOSPITAL RDW 13.7 11.9 - 11/30/2021 [facility] 15.5 % 12:55 PM CDT HOSPITAL Platelets 228 150 - 450 11/30/2021 [facility] x10(9)/L 12:55 PM CDT HOSPITAL Automated NRBC 0 <=0 /100 11/30/2021 [facility] WBC 12:55 PM CDT [facility]OSPITAL Specimen Anatomical Collection Method / Collection Time Recei yudy Time (Source) Location / Volume Laterality Blood Venipuncture / 11/30/2021 12:37 2 Unknown PM CDT 12:44 PM CDT Christiano Kam MD LAB_1 Performing Organization Address [facility]/ZIP [facility] Phon e Number [address] [address] (ABNORMAL) Basic Metabolic Panel (11/30/2021 12:37 PM CDT) athologist Signature Sodium 139 136 - 145 11/30/2021 [facility] mmol/L 1:19 PM CDT [facility]OSPITAL Potassium 4.3 3.5 - 5.1 11/30/2021 [facility] mmol/L 1:19 PM CDT [facility]OSPITAL Chloride 108 98 - 109 11/30/2021 [facility] mmol/L 1:19 PM T HOSPITAL CO2 25 20 - 29 11/30/2021 [facility] mmol/L 1:19 PM CDT [facility]OSPITAL Anion Gap 6 (L) 7 - 16 11/30/2021 [facility] mmol/L 1:19 PM CDT [facility]OSPITAL Calcium 9.0 8.4 - 10.4 11/30/2021 [facility] mg/dL 1:19 PM T [facility]OSPITAL BUN 19 7 - 26 11/30/2021 [facility] mg/dL 1:19 PM CDT [facility]OSPITAL Creatinine 0.55 0.55 - 11/30/2021 [facility] 1.02 mg/dL 1:19 PM T [facility]OSPITAL GFR, Estimated >60 >60 11/30/2021 [facility] mL/min/1.7 1:19 PM T HOSPITAL 3m2 Glucose 89 70 - 100 11/30/2021 [facility] mg/dL 1:19 PM CDT [facility]OSPITAL Comment: The given reference range is fo r the fasting state. Non-fasting reference range for glucose is 70 - 180 mg/dL. Specimen Anatomical Collection Method / Collection Time Recei yudy Time (Source) Location / Volume Laterality Blood Venipuncture / 11/30/2021 12:37 2 Unknown PM CDT 12:44 PM CDT Christiano Kam MD LAB_1 Performing Organization Address City/[facility] Phon e Number [address] [address] ECG 12-Lead STAT (EKG) (11/30/2021 12:26 PM CDT) P athologist Signature Ventricular Rate 64 BPM [facility] Atrial Rate 89 BPM [facility] QRS Duration 92 ms [facility] QT 420 ms [facility] QTc 433 ms [facility] R [place] 54 degrees [facility] T [place] 31 degrees [facility] Specimen (Source) Anatomical Collection Method Collection Time Re ceived Time Location / / Volume Laterality 11/30/2021 12:26 PM CDT Narrative [facility] - 12/03/2021 8:43 AM CDT Atrial fibrillation Abnormal ECG When compared with ECG of 01-JAN-2018 16 :37, Vent. rate has decreased BY ??36 BPM Confirmed by Steve Vargas ([id number]) on 11/15 8:43:10 AM Procedure Note Steve Vargas MD - 12/03/2021 Atrial fibrillation Abnormal ECG When compared with ECG of 01-JAN-2018 16 :37, Vent. rate has decreased BY 36 BPM Confirmed by Steve Vargas ([id number]) on 11/15 8:43:10 AM Christiano Kam MD EKG Performing Organization Address City/State/ZIP Code Phon e Number MUSE [facility] [address] [place] [id number] documented in this encounter Visit Diagnoses Diagnosis Chest pain, unspecified type - Primary Acute pulmonary edema (HRC) Acute edema of lung, unspecified Generalized muscle weakness Muscle weakness (generalized) Lymphedema Other lymphedema Essential hypertension (HRC) Unspecified essential hypertension Chronic a-fib (HRC) Atrial fibrillation Encounter for laboratory testing for COV ID-19 virus Plan of Care - Ariadna Carlos RN - 12/03/2021 1:52 PM CDT [facility] Discharge Note - Nursing Admission Date/Time: 11/30/2021 12:08 PM Attending MD: Reji Santacruz DO Patient discharged: with Home Care Service (Home Care Service Name: [facility]). Discharge Date: 12/03/2021 Discharge Time: 1:52 PM Patient accompanied by: relative. Transported by: Wheelchair Valuables were taken home by patient: Yes Discharge instructions given and explained to patient: Yes Discharge Patient Education Plan completed, taught, and provided to patient/caregiver at discharge: Yes ?? Discussed medication risks with patient ?? Patient understands medications usage and side effects ?? Patient understands diagnosis ?? Action Plan for management of symptoms/side effects/complications requiring medical attention established and shared with patient/caregiver Patients general condition on discharge: A/Ox4. PERRL. RASS 0. Afebrile. Denies pain, CP, N/T, SOB, N/V. GC w/ tele: A. Fib., HR 60's-80's, BP,118/61 +2/+1 pulses, +2 edema to BLE. LSC on RA; CPAP at HS. Regular diet; tolerating well. SBAx1 + walker to BSC w/ adequate UOP & 1x BM. Wound care done & Mepilex changed x2 r/t dressing falling off when pt. is on commode; wound RN consulted & larger Mepilex put in place w/ barrier spray & supplies given to patient for home use. Pt. stated understanding of discharge instructions; medications and paperwork given. No questions or concerns noted. All medical devices (telemetry/IV/etc) unless otherwise ordered, have been removed and stored: Yes I completed a full assessment and assessments as ordered and per policy on this patient during my work shift. Reassessments completed during my work shift are unchanged unless documented. --- End of Report --- Initial Assessments - Gabbie Shin LSW - 12/03/2021 11:05 AM CDT [facility] Care Management Discharge Note Discharge Information: Expected Discharge Date: 12/03/21 Expected Discharge Time: 1500 Patient to be Discharged to: Home, Home Care [facility] ([phone]) Address: [address] [place] [address] Pt [place]ON [id number] Discharge transport needs:: TBD Patient/family is aware of discharge plan?: yes Contacts: Emergency Contacts Obstetrical Nurse (Rel.) Home Phone Work Phone Mobile Phone Steve Brush (Daughter) [phone] -- [phone] Delilah Hunter (Sibling) -- -- [phone] Legal Status at Discharge: voluntary Readmission Risk: 11.23 % Predictive Model Details 11% Factor Value Risk of Unplanned Readmission Model 35% Number of active Rx orders 32 15% ECG/EKG order present in last 6 months 12% Latest INR high (3.0) 11% Imaging order present in last 6 months 10% Age 76 9% Number of ED visits in last six months 1 7% Active anticoagulant Rx order present 3% Current length of stay 1.849 days Additional Comments: Pt was discussed with staff and chart was reviewed. Per staff, pt is medically stable for dc to home. SW spoke with pt about dc plan and changing home care agency to meet pt needs better. Pt asked if this SW could ask [facility] again to provide services needed. SW spoke with Dhara from [facility]. Per Dhara, [facility] is not able to provide PT or lymphedema wraps for pt. Pt made aware of this. Pt will be followed by [facility]. SW faxed dc orders to [facility] through [employer]. SW also called and spoke with Fozia([phone]) from [facility]. Per Fozia, they will see pt by Monday. DAVONTE Lambert Plan of Care - Shagufta Moreira, PharmD - 12/03/2021 9:21 AM CDT [facility] Pharmacy Warfarin Consult Note Assessment: Charlette Velma Brush, [id number] is a 76 y.o. female prescribed warfarin therapy for AFib/Aflutter. ??Goal INR range: 2 - 3. Pharmacy consulted to manage. ?? Recommendations/Plan: Per P&T approved Pharmacy Warfarin Consult Policy: ?? Warfarin dose:??this patient will be dosed with 7.5 mg of warfarin today. Bridging:??current bridging medication: none Discharge:??[facility] patient: If patient were to discharge today, would recommend warfarin dosing as 7.5 mg/day??with follow up INR tomorrow or as directed by patient's home anticoagulation management team. ?? Pharmacy will order INRs and complete dose adjustments per protocol Shagufta Rosales PharmD, BCPS ?? Data: ?? Weight: (!) 156.6 kg (345 lb 3.2 oz) ?? Patient's Outpatient warfarin Regimen:??10mg/day Patient's warfarin is managed by:??[facility] interactions affecting warfarin dosing this admission:??apap prn Warfarin Flowsheet Latest Ref Rng & Units 12/03/2021 12/02/2021 12/01/2021 11/30/2021 INR 0.9 - 1.1 3.0(H) 3.0(H) 2.7(H) 2.6(H) Warfarin Dose (mg) - 7.5 7.5 10 10 Daily Review - No Change Reduce Dose No Change No Change Bridge Therapy - - - - No Plan of Care - Arjun Easley RN - 12/03/2021 8:00 AM CDT [facility] Plan of Care Note Assessment: Pain, cardiac, respiratory Plan: DC Subjective: Did they tell you that dressing came out last night? Objective: AOx4, denies pain, denied numbness/tingling. Afib, bradycardic in the 60s overnight, BP 133/60. CPAP on while sleeping, tolerating well. No BM. Wound cares completed. Pt able to make needs known and uses call light appropriately. I completed a full assessment and assessments as ordered and per policy on this patient during my work shift. Reassessments completed during my work shift are unchanged unless documented. Cares assumed from [id number]. --- End of Report --- Plan of Care - Nely Escobar RN - 12/03/2021 12:09 AM CDT Assumed cares [id number]. I completed a full assessment and assessments as ordered and per policy on this patient during my work shift. Reassessments completed during my work shift are unchanged unless documented. Plan of Care - Ivelisse Dorado RN - 12/02/2021 3:59 PM CDT Plan of Care Note Assessment: POC review Plan: Skin integrity. PO diuretics. Telemetry. Encourage activity. Subjective: Denies pain. Objective: NEURO: Alert, oriented x4. Denies pain. Continues w/ intermittent numbness/ tingling to left foot; reports it has been since buttock surgery. RESPIRATORY: LS clear. No cough. Denies shortness of breath. spO2 >94% on room air. Cont. Pulse ox d/c'd by provider. CARDIAC: Afib w/ rate in 60's-80's, occasionally 50's, asymptomatic. +2 edema to feet/ ankles. GI/ : Good appetite, tolerating meals. Voiding in commode. 1 large BM. SKIN/ SKELETAL: Up w/ ax1/SBA and walker. Wound nurse saw patient, changed buttock dressing per orders. Pt independent w/ bed mobility. I completed a full assessment and assessments as ordered and per policy on this patient during my work shift. Reassessments completed during my work shift are unchanged unless documented. --- End of Report --- Plan of Care - Shagufta Moreira, PharmD - 12/02/2021 1:37 PM CDT [facility] Warfarin Consult Note Assessment: Charlette Carreon Tristinnithin, [id number] is a 76 y.o. female prescribed warfarin therapy for AFib/Aflutter. ??Goal INR range: 2 - 3. Pharmacy consulted to manage. ?? Recommendations/Plan: Per P&T approved Pharmacy Warfarin Consult Policy: ?? Warfarin dose:??this patient will be dosed with 7.5 mg of warfarin today. Bridging:??current bridging medication: none Discharge:??[facility] patient: If patient were to discharge today, would recommend warfarin dosing at??7.5mg po today then likely resume 10mg/day (home dose)tomorrow??with follow up INR as directed by patient's home anticoagulation management team. ?? Pharmacy will order INRs and complete dose adjustments per protocol Shagufta Rosales PharmD, BCPS Data: Weight: (!) 156.6 kg (345 lb 3.2 oz) Patient's Outpatient warfarin Regimen:??10mg/day Patient's warfarin is managed by:??[facility] interactions affecting warfarin dosing this admission: apap prn Warfarin Flowsheet Latest Ref Rng & Units 12/02/2021 12/01/2021 11/30/2021 INR 0.9 - 1.1 3.0(H) 2.7(H) 2.6(H) Warfarin Dose (mg) - 7.5 10 10 Daily Review - Reduce Dose No Change No Change Bridge Therapy - - - No Plan of Care - Gabbie Shin LSW - 12/02/2021 12:55 PM CDT [facility] Care Management Follow Up Note Plan: Care Team Actions Needed: medical clearance, discharge orders Expected Discharge Date: 12/02/21 Anticipated Discharge Plan: Home with resumption of home care services (possibly adding on PT) and [employer] services Care Coordination Updates: Current Patient Assessment: appropriate, pleasant Provided patient/family with coordination of care choices for:: Home Care Actual patient/family choice(s):: Home, Home Care Barriers/Vulnerabilities: patient requires further observation Discharge transport needs:: TBD Contacts: Emergency Contacts Obstetrical Nurse (Rel.) Home Phone Work Phone Mobile Phone Steve Brush (Daughter) [phone] -- [phone] Delilah Hunter (Sibling) -- -- [phone] Additional Comments: Pt was discussed with staff and chart was reviewed. Per staff, pt can return home. Per PT recommendations, pt will need home PT and lymphedema wraps. Pt is currently followed by [facility] ([phone]) RN for wound cares. SW called and spoke with Yuli from [facility]. Per Yuli, theycan also provide PT services for pt, but they are not able to help with lymphedema wraps. SW faxed information to [facility] ([phone]) and [facility] ([phone]) to see if they can accept pt with above needs. Information was faxed to both agencies through [employer]. 1510: Call back from Fozia with [facility] ([phone]). Per Fozia, they can accept pt and provide pt with PT, RN and lymphedema wraps. SW to talk with pt about home care. SW to follow [facility]ON[facility] Lambert Plan of Care - Oscar Hernandez RN - 12/02/2021 6:28 AM CDT Assumed cares @[phone]. Pt is A&Ox4. Cpap on overnight. Tele: A. Fib, HR: 50s-60s. Pt denies pain, CP, SOB, N/V, dizziness. Numbness and tingling at baseline per pt. +2 pulses in upper extremity, +1 in lower. +2 edema in bilateral lower extremity. LS: clear in upper lobes and diminished in lower lobes. BS: active. Up to the commode w/ walker and stand by. Pt slept through most of the shift. Call light within reach, pt is able to make needs known. I completed a full assessment and assessments as ordered and per policy on this patient during my work shift. Reassessments completed during my work shift are unchanged unless documented. Plan of Care - Rashard Conteh RN - 12/01/2021 5:04 PM CDT [facility] Plan of Care Note Assessment: Cardiac Plan: Monitor labs/vitals/s&s; intervene accordingly. Meds as directed. Subjective: No chest or back pain currently. Objective: Neuro: A/Ox4, PERRLA, afebrile, denies pain Cardiac: Tele = A-fib , HR 60-70's with brief (seconds) dips to 30-40's (Provider notified), BP: 130-170's/60-80's, LE edema, pulses +2 BUE/+1 BLE, denies chest/back pain Respiratory: LS: clear/dim, on RA, with sats >92% GI/: denies N/V, no BM, voiding large amounts in bedside commode, poor appetite, PRN senna given Skeletal/skin: Up SBA to ambulate, independent turns, wound cares completed per order I completed a full assessment and assessments as ordered and per policy on this patient during my work shift. Reassessments completed during my work shift are unchanged unless documented. Rashard Vigil RN [facility]. Practitioner Notified Note Name of Practitioner notified: R 1-4 [employer] Time of Practitioner notification: 8:08 PM Reason: [id number] CLei: Pt had 4 brief moments of bradycardia to 30-40's recovering quickly. SBP 170. Give or hold metoprolol? Response: Give Metoprolol --- End of Report --- Initial Assessments - Fabiana Rutherford RN - 12/01/2021 4:04 PM CDT [facility] Care Management Initial Assessment Plan: Care Team Actions Needed: MD medical clearance, discharge orders Provided patient/family with coordination of care choices for:: Home Care Actual patient/family choice(s):: Home, Home Care Expected Discharge Date: 12/02/21 Anticipated Discharge Plan: Home with resumption of home care services (possibly adding on PT) and [facility] services Admission Info: Reason For Consult: discharge planning, introduction visit Chart Reviewed: discussed with patient, discussed with interdisciplinary team Contacts: Emergency Contacts Obstetrical Nurse (Rel.) Home Phone Work Phone Mobile Phone Steve Brush (Daughter) [phone] -- [phone] Delilah Hunter (Sibling) -- -- [phone] Cognitive capacity prior to admission: oriented Independent with ADLs (Prior to Admission)? Yes Equipment Currently Used at Home: yes Living Environment: Living Arrangements (select all that apply): Alone, Condo/apartment Home Accessibility: bed and bath are not on the first floor Baseline Transportation: other (see comments) (Pt states she can drive, but usually does not. [employer] drives her to appts using pt's car.) Medication management by: patient How medications are managed: pillbox Assistive Devices: Walker, 4 wheeled, Walker, 2 wheeled, Wheelchair, manual, Shower chair, Bedside commode, Hospital bed Food Insecurity: No Food Insecurity ??? Worried About Running Out of Food in the Last Year: Never true ??? Ran Out of Food in the Last Year: Never true Coping/Stress: Reaction To Health Status: adjusting Understanding Of Condition And Treatment: adequate understanding of medical condition, adequate understanding of treatment Emotional/Psychological: Affect: no deficits noted Mood: congruent to situation Verbal Skills: no deficits noted Current Interpersonal Conduct/Behavior: appropriate to situation Current Patient Assessment: appropriate, pleasant Barriers: patient requires further observation Current Services: Outpatient/Agency/Support Group Current Services: other (see comments), homecare agency (specify level of care) Current Homecare Services Comments: [facility] RN for wound care and they also do INRs Other Current Services Comments: Home palliative services set up by [facility] through [facility] where she hasaccess to TRAINING AND DEVELOPMENT OFFICER, SW, Credit Intern. Also, patient pays privately for [employer] servcies through [employer] Additional Information: Interdisciplinary Rounding done with: charge nurse, managed care liaison, provider Prior Services: Transport Needs: Discharge transport needs:: TBD Interdisciplinary Rounding done with: charge nurse, managed care liaison, provider Primary Care: Primary Care Clinic: [facility] [phone] Primary Care Physician: Dr. Jaiden Holcomb Functional Level Prior: Ambulation: Assistive equipment Transferring: Assistive equipment Toileting: Assistive equipment Bathing: Assistive equipment and person Dressing: Assistive equipment Eating: Independent Communication (Not related to language barrier): Understands/communicates without difficulty Swallowing: Swallows foods/liquids without difficulty Meal Preparation: independent Laundry: assistive person Shopping: defers to another Transportation: relies on family/friends Prior Functional Level Comment: Patient lives alone in a home, daily [employer] services, wound RN 2-3x/wk Insurance: MEDICARE Additional Comments: Pt here under OBS status. Came in with chest pain/pressure. Found to have CHF exacerbation. Reviewed patient's chart and discussed plan of care with team during care connection. Met with patient, introduced myself and my role as nurse community case manager. Verified demographics, PCP and insurance. Current services for patient: 1) [facility] [phone] - Currently RN only, but may have PT added at DC per PT recs. RN does wound cares 2-3x/week and gets patient's INRs when needed. 2) [employer] - Patient pays for daily [employer]INGER AND SETTER services. Part is paid for by a LTC policy she has and the rest is out of pocket. 3) [facility] [phone]. ANDREINA spoke with Ruth and RN at [facility]. She states that they provide palliative care services paid for through patient's BCBS secondary insurance. Pt has access to TRAINING AND DEVELOPMENT OFFICER, SW and javascript developer. Ruth would like to be updated when patient discharges. 4) [facility] for every 1-2 wk wound care. [phone] Patient states she lives in [facility] with two levels. Has not been up to second level since 2018. She has a hospital bed in her living room. She gets around using a 2ww in the home and 4ww out of the home. Wound care consult was placed but they did not see patient and she states that the buttock wound wasundressed and that no one has packed it since. ANDREINA spoke with charge nurse to follow up. Anticipated discharge plan for patient is home with resumption of above services. Transport home TBD. Patient does not know if she could get into her dtrs car. Her car (which she canget into) is at her home. Discussed w/c ride home and OOP costs around that. Patient is still thinking about what to do. CM/SW Team will continue to follow for coordination of care, discharge planning and offer support asneeded. Fabiana Rutherford RN case manager. Plan of Care - Ivelisse Dorado RN - 12/01/2021 9:44 AM CDT Plan of Care Note Assessment: POC review. Plan: Continue POC. Subjective: I always take my Atenolol. Objective: NEURO: Alert, oriented x4. No PRNs given for pain. Back pain tolerable. RESPIRATORY: LS dim/ clear. spO2 stable on room air, > 97%. CARDIAC: Afib w/ PVCs. Rate 50s-80's. BP improved to 130's SBP after scheduled Atenolol and Losartan. GI/ : No BM, appetite good, tolerating meals. Voiding in commode. SKIN/ SKELETAL: Wound consult placed for left buttock wound, Mepilex intact. Up w/ ax1 and walker. I completed a full assessment and assessments as ordered and per policy on this patient during my work shift. Reassessments completed during my work shift are unchanged unless documented. --- End of Report --- [facility]. Practitioner Notified Note Name of Practitioner notified: Resident (R2) Time of Practitioner notification: 9:44 AM Reason: [id number] Pt Afib down to 30's not sustained.Ok to given atenolol?BP 171/102. PRN for BP? Response: Ok to give Atenolol. Plan of Care - Shagufta Moreira PharmD - 12/01/2021 9:14 AM CDT [facility] Clinical Pharmacy Warfarin Consult Note Assessment: Charlette Velma Brush, [id number] is a 76 y.o. female prescribed warfarin therapy for AFib/Aflutter. Goal INRrange: 2 - 3. Pharmacy consulted to manage. ?? Recommendations/Plan: Per P&T approved Pharmacy Warfarin Consult Policy: ?? Warfarin dose: this patient will be dosed with 10mg of warfarin today. Bridging: current bridging medication: none Discharge: [facility] patient: If patient were to discharge today, would recommend warfarin dosing at 10mg/day (home dose) with follow up INR as directed by patient's home anticoagulation management team. ?? Pharmacy will order INRs and complete dose adjustments per protocol Shagufta Rosales PharmD, BCPS Data: Weight: (!) 161 kg (355 lb) Patient's Outpatient warfarin Regimen: 10mg/day Patient's warfarin is managed by: [facility] Drug interactions affecting warfarin dosing this admission: apap prn Warfarin Flowsheet Latest Ref Rng & Units 12/01/2021 11/30/2021 INR 0.9 - 1.1 2.7(H) 2.6(H) Warfarin Dose (mg) - 10 10 Daily Review - No Change No Change Bridge Therapy - - No Plan of Care - Hilda Silver RN - 12/01/2021 7:41 AM CDT [facility] Plan of Care Note Assessment: Plan of care Plan: Monitor VS, pain control Subjective: My pain was like this when I called 911 Objective: Pt A&Ox4. Afebrile. Complains of back pain the radiates to her chest and right side; PRN tylenol given. Pt states tylenol usually helps her. LS diminished on RA while awake and CPAP while sleeping. Afib; HR 40-70s. MD aware of being gema. BP 130-160s/70-90s. SBA with walker to BSC. Voiding without issues. Pt states she feels constipated often, especially if she doesn't have a BM everyday. Discussed with her that PRN senna is available if wanting. Able to make needs known. I completed a full assessment and assessments as ordered and per policy on this patient during my work shift. Reassessments completed during my work shift are unchanged unless documented. --- End of Report --- Plan of Care - Rebeca Hernández RN - 11/30/2021 11:34 PM CDT I completed a full assessment and assessments as ordered and per policy on this patient during my work shift. Reassessments completed during my work shift are unchanged unless documented. Plan of Care - Rebeca Hernández RN - 11/30/2021 11:07 PM CDT [facility]. Practitioner Notified Note Name of Practitioner notified: R02 crossover. Time of Practitioner notification: 10:12 PM Reason: D02 Car L: pt requesting CPAP, Hx of sleep apnea.Please advise. Response: Provider place orders. Plan of Care - Poonam Ratliff, PharmD - 11/30/2021 7:07 PM CDT [facility] Clinical Pharmacy Warfarin Consult Note Assessment: Charlette Brush, [id number] is a 76 y.o. female prescribed warfarin therapy for AFib/Aflutter. Goal INRrange: 2 - 3. Pharmacy consulted to manage. Recommendations/Plan: Per P&T approved Pharmacy Warfarin Consult Policy: Warfarin dose: this patient will be dosed with 10mg of warfarin today. Bridging: current bridging medication: none Discharge: [facility] patient: If patient were to discharge today, would recommend warfarin dosing at 10mg/day (home dose) with follow up INR as directed by patient's home anticoagulation management team. Pharmacy will order INRs and complete dose adjustments per protocol. Data: Weight: (!) 166 kg (366 lb) Patient's Outpatient warfarin Regimen: 10mg/day Patient's warfarin is managed by: [facility] Flowsheet Latest Ref Rng & Units 11/30/2021 INR 0.9 - 1.1 2.6(H) Warfarin Dose (mg) - 10 Daily Review - No Change Bridge Therapy - No Plan of Care - Barber Lofton, JosephD - 11/30/2021 2:36 PM CDT [facility] Medication History Note Concerns to be addressed by team prior to discharge: see notes below Outpatient Medications Marked as Taking for the 11/30/21 encounter (Hospital Encounter) Medication Sig Note Last Dose ??? acetaminophen (TYLENOL) 500 MG tablet Take 500-1,000 mg by mouth every 4 hours as needed for Pain. Maximum acetaminophen dose is 4000 mg in 24 hours As Directed-PRN at Unknown time ??? ascorbic acid (AKA VITAMIN C) 1000 MG tablet Take 1,000 mg by mouth daily. 11/29/2021 at Unknown time ??? atenolol (TENORMIN) 25 MG tablet Take 25 mg by mouth two times a day. 11/30/2021 at Unknown time ??? cetirizine (ZYRTEC) 10 MG tablet Take 10 mg by mouth two times a day. 11/30/2021 at Unknown time ??? Cholecalciferol (VITAMIN D3) 125 MCG (5000 UT) TABS Take 1 Tablet by mouth daily. 11/29/2021 at Unknown time ??? docusate sodium (COLACE) 100 MG capsule Take 100 mg by mouth every 24 hours as needed for Constipation. As Directed-PRN at Unknown time ??? drug not in computer Floridex - Take 10 mL by mouth once daily 11/29/2021 at Unknown time ??? levETIRAcetam (KEPPRA) 500 MG tablet Take 500 mg by mouth two times a day. 11/30/2021 at Unknown time ??? losartan (COZAAR) 50 MG tablet Take 50 mg by mouth daily. 11/30/2021 at Unknown time ??? magnesium oxide (MAG-OX) 400 MG tablet Take 400 mg by mouth daily. 11/29/2021 at Unknown time ??? Multiple Vitamins-Minerals (PRESERVISION AREDS) TABS Take 1 Tablet by mouth two times a day. 11/30/2021 at Unknown time ??? multivitamin with minerals tablet Take 1 Tablet by mouth daily. 11/29/2021 at Unknown time ??? nystatin (MYCOSTATIN) 369399 UNIT/GM cream Apply topically every 24 hours as needed for Dry Skin. As Directed-PRN at Unknown time ??? nystatin (MYCOSTATIN) 358461 UNIT/GM powder Apply topically two times daily as needed. Beneath bilateral breast/groin As Directed-PRN at Unknown time ??? omega-3 fatty acids (FISH OIL) 1000 MG capsule Take 2 g by mouth daily. 11/29/2021 at Unknown time ??? warfarin (COUMADIN) 10 MG tablet Take 10 mg by mouth daily. 11/30/2021: Verified dose with the patient and [facility] anticoagulation note written on 11/18/21 11/29/2021 at Unknown time ??? zinc gluconate 50 MG tablet Take 50 mg by mouth daily. 11/29/2021 at Unknown time Pertinent information and medication changes requiring MD review: The following medications were added to [facility] MED LIST: Added all medications to the patient's med list The following medications were deleted from [facility] MED LIST: Discontinued: 11/30/2021 ??2:31 PM Start: 01/03/17 ?? End: 11/30/21 Medication adherence concerns/barriers: no concerns This Med Rec was completed using: [facility] (website), care everywhere and patient interview Primary Pharmacy is: Primary pharmacy: [facility] [phone] This document completed by: --- End of Report --- This represents the Best Possible Medication History (BPMH) the patient was taking at their residence before admission to the hospital and should be used as a guide in determining the appropriate treatment while in the hospital and before the discharge medication reconciliation is complete. Triage Assessment Note - Suze Mccurdy RN - 11/30/2021 12:11 PM CDT PT arrives via EMS from home with chest pain that radiates from her back to her chest, symptoms began this morning. documented in this encounter Administered Medications Inactive Administered Medications - up to 3 most recent administrations Medication Order MAR Action Action Date Dose Rate Site acetaminophen (TYLENOL) tablet 500 Given 12/01/2021 1:17 AM CDT 500 mg mg 500 mg, Oral, Q6H PRN, Pain/Fever, Starting on Mon12/01/21 at 0112, Until Mon12/03/21 at 1652 ascorbic acid (VITAMINC) tablet 1,000 mg Given 12/03/2021 8:52 AM CDT 1,000 mg 1,000 mg, Oral, DAILY, First dose on Mon12/01/21 at 0800 Given 12/02/2021 8:27 AM CDT 1,000 mg Given 12/01/2021 9:23 AM CDT 1,000 mg atenolol (TENORMIN) tablet 25 mg Given 12/01/2021 10:08 AM CDT 25 mg 25 mg, Oral, BID, First dose on Mon11/30/21 at 2000, Until Discontinued Given 11/30/2021 8:00 PM CDT 25 mg atorvastatin (LIPITOR) tablet 40 mg Given 12/02/2021 8:05 PM CDT 40 mg 40 mg, Oral, DAILY - 1999, First dose (after last modification) on Mon12/02/21 at 2000, Until Discontinued, Indications: to lower cholesterol benzocaine-menthol (CEPACOL) lozenge 1 L ozenge 1 Lozenge, Oral, Q2H PRN, Throat Pain, Cough, Starting on Mon11/30/21 at 1521, Until Mon12/03/21 at 1652 calcium carbonate (TUMS) chewable tablet 1,000 mg 1,000 mg, Oral, Q4H PRN, Heartburn, Upse t Stomach, Starting on Mon11/30/21 at 1521, Until Mon12/03/21 at 1652, For indigestion/upset stoma ch cetirizine (ZyrTEC) tablet 10 mg Given 12/03/2021 8:52 AM CDT 10 mg 10 mg, Oral, BID, First dose on Mon11/30/21 at 2000, Until Discontinued Given 12/02/2021 8:05 PM CDT 10 mg Given 12/02/2021 8:26 AM CDT 10 mg cholecalciferol (VITAMIN D3) tablet Given 12/03/2021 8:52 AM CDT 5,000 Units 5,000 Units 5,000 Units, Oral, DAILY, First dose on Mon12/01/21 at 0800, Until Discontinued Given 12/02/2021 8:26 AM CDT 5,000 Units Given 12/01/2021 9:23 AM CDT 5,000 Units empagliflozin (JARDIANCE) tablet 10 mg Given 12/03/2021 9:28 AM CDT 10 mg 10 mg, Oral, DAILY, First dose on Mon12/03/21 at 0930 furosemide (LASIX) injection 20 mg Given 11/30/2021 8:01 PM CDT 20 mg Right Arm 20 mg, Intravenous, ONCE, On Mon11/30/21 at 2000, For 1 dose, IV Push maximum rate is 20mg/min. IVPB to be infused over 15 minutes. furosemide (LASIX) injection 20 mg Given 12/01/2021 5:13 PM CDT 20 mg 20 mg, Intravenous, DIURETIC - 0800/1700, First dose on Mon12/01/21 at 1100, Until Discontinued, IV Push maximum rate is 20mg/min. IVPB to be infused over 15 minutes. Given 12/01/2021 11:41 AM CDT 20 mg furosemide (LASIX) tablet 40 mg Given 12/02/2021 10:28 AM CDT 40 mg 40 mg, Oral, DAILY, First dose on Mon12/02/21 at 1000, Until Discontinued levETIRAcetam (KEPPRA) tablet 500 mg Given 12/03/2021 8:52 AM CDT 500 mg 500 mg, Oral, BID, First dose on Mon11/30/21 at 2000, Until Discontinued Given 12/02/2021 8:05 PM CDT 500 mg Given 12/02/2021 8:26 AM CDT 500 mg lidocaine (ASPERCREAM) 4 % patch 1 Patch 1 Patch, Transdermal, DAILY PRN, Pain, S tarting on Mon11/30/21 at 1541, Until Mon12/03/21 at 1652, Apply patch to painful area. Patch may remain in place for up to 12 hours in any 24 hour period, i.e. pat ches placed at 0800 should be removed at 1999. May cut patch to appropriate size. losartan (COZAAR) tablet 50 mg Given 12/03/2021 8:52 AM CDT 50 mg 50 mg, Oral, DAILY, First dose on Mon12/01/21 at 0800, Until Discontinued Given 12/02/2021 8:27 AM CDT 50 mg Given 12/01/2021 9:23 AM CDT 50 mg magnesium oxide (MAG-OX) tablet 400 mg Given 12/03/2021 8:52 AM CDT 400 mg 400 mg, Oral, DAILY, First dose on Mon12/01/21 at 0800 Given 12/02/2021 8:27 AM CDT 400 mg Given 12/01/2021 9:23 AM CDT 400 mg melatonin tablet 6 mg 6 mg, Oral, HS PRN, Sedation, Starting o n Mon11/30/21 at 1521, Until Mon12/03/21 at 1652 metoprolol tartrate (LOPRESSOR) tablet 12.5 Given 11/15 8:52 AM CDT 12.5 mg mg 12.5 mg, Oral, BID, First dose on Mon12/01/21 at 2000, Until Discontinued, Take with food Hold for HR <60, SBP <100 Given 12/02/2021 8:05 PM CDT 12.5 mg Given 12/02/2021 8:27 AM CDT 12.5 mg multivitamin with minerals tablet 1 Tabl et Given 12/03/2021 8:52 AM CDT 1 Tablet 1 Tablet, Oral, DAILY, First dose on Mon12/01/21 at 0800, Until Discontinued Given 12/02/2021 8:26 AM CDT 1 Tablet Given 12/01/2021 9:23 AM CDT 1 Tablet sennosides-docusate sodium (SENOKOT S) Given 12/01/2021 10:56 PM CDT 1 Tablet 8.6-50 MG per tablet 1 Tablet 1 Tablet, Oral, DAILY PRN, Constipation, Starting on Mon11/30/21 at 1940, Until Mon12/03/21 at 1652, as laxative/stimulant, stool-softening agent warfarin (COUMADIN) tablet 10 mg Given 12/01/2021 5:13 PM CDT 10 mg 10 mg, Oral, WARFARIN - DAILY, First dose on Mon11/30/21 at 1930, Until Discontinued, Hazardous waste disposal required Vitamin K antagonizes the effects of warfarin. Maintain consistent intake of vitamin K in the diet. HAZARDOUS DRUG Preparation: Single glove Administration: If no touch, no PPE; if handling, single glove Given 11/30/2021 8:00 PM CDT 10 mg warfarin (COUMADIN) tablet 10 mg 10 mg, Oral, WARFARIN - DAILY, First dos e (after last reorder) on Mon12/03/21 at 1800, Until Discontinued, Hazardous wast e disposal required Vitamin K antagonizes the effects of warfarin. Maintain consistent intake of vitamin K in the diet. HAZARDOUS DRUG Preparation: Single glove Administration: If no touch, no PPE; if handling, single glove warfarin (COUMADIN) tablet 7.5 mg Given 12/02/2021 6:28 PM CDT 7.5 mg 7.5 mg, Oral, WARFARIN - DAILY, First dose (after last modification) on Mon12/02/21 at 1800, Last dose on Mon12/02/21 at 1800, For 1 dose, Hazardous waste disposal required Vitamin K antagonizes the effects of warfarin. Maintain consistent intake of vitamin K in the diet. HAZARDOUS DRUG Preparation: Single glove Administration: If no touch, no PPE; if handling, single glove zinc sulfate (ORAZINC) tablet 110 mg Given 12/01/2021 9:22 AM CDT 110 mg 110 mg, Oral, DAILY, First dose on Mon12/01/21 at 0800 documented in this encounter Active and Recently Administered Medications Times are shown in CDT. Scheduled Medication Order 12/01/2021 12/02/2021 12/03/2021 ascorbic acid (VITAMINC) tablet 1,000 mg 0923 (Given - Provider: Ivelisse Dorado RN) 0827 (Given - Provider: Ivelisse Dorado RN) 0852 (Give n - Provider: Ariadna Carlos RN) 1,000 mg, Oral, DAILY, First dose on Mon12/01/21 at 0800 atenolol (TENORMIN) tablet 25 mg (CANCELED) 1008 (Give n - Provider: Ivelisse Dorado RN - Comment: pt gema haynes, ok to give per ) 25 mg, Oral, BID, First dose on Mon11/30/21 at 1999, Until Disco ntinued atorvastatin (LIPITOR) tablet 40 mg 2004 (Given - Provider: Nely Escobar RN) 40 mg, Oral, DAILY - 1999, First dose (a fter last modification) on Mon12/02/21 at 1999, Until Discontinued, Indications: to lower cholesterol cetirizine (ZyrTEC) tablet 10 mg 09 (Given - Provide r: Ivelisse Dorado RN)194 (Given - Provider: Rashard Conteh RN) 08 (Given - Provider: Ivelisse Dorado RN)2004 (Given - Provider: Nely Escobar, CHANDLER) 08 (Given - Provider: Ariadna Carlos, RN) 10 mg, Oral, BID, First dose on Mon11/30/21 at 2000, Until Disco ntinued cholecalciferol (VITAMIN D3) tablet 5,000 Units 09 ( Given - Provider: Ivelisse Dorado RN) 08 (Given - Provider: Ivelisse Dorado RN) 08 (Give n - Provider: Ariadna Carlos, RN) 5,000 Units, Oral, DAILY, First dose on Mon12/01/21 at 0800, Until Discontinued empagliflozin (JARDIANCE) tablet 10 mg 09 (Given - Provider: Ariadna Carlos, RN) 10 mg, Oral, DAILY, First dose on Mon12/03/21 at 0930 furosemide (LASIX) injection 20 mg (CANCELED) 1141 (Gi nina - Provider: Ivelisse Dorado RN)1713 (Given - Provider: Rashard Conteh, CHANDLER) 0735 (Held by provider in Manage Orders - Provider: Elie Lim MD - Reason: Other (Enter Reason in Comment Area) - Comment: Re-assess urine output)0800 (Automatically Held - Provider: Elie Lim MD) 20 mg, Intravenous, DIURETIC - 0800/1700 , First dose on Mon12/01/21 at 1100, Until Discontinued, IV Push maximum rate is 20mg/min. IVPB to be infused over 15 minutes. 0939 (Unheld by provider in Manage Orders - Provider: Elie Lim MD) furosemide (LASIX) tablet 40 mg (CANCELED) 1028 (Given - Provider: Ivelisse Dorado RN) 40 mg, Oral, DAILY, First dose on Mon12/02/21 at 1000, Until Dis continued levETIRAcetam (KEPPRA) tablet 500 mg 09 (Given - Pro vider: Ivelisse Dorado RN)194 (Given - Provider: Rashard Conteh, CHANDLER) 08 (Given - Provider: Ivelisse Dorado RN)2004 (Given - Provider: Nely Escobar, CHANDLER) 08 (Given - Provider: Ariadna Carlos, CHANDLER) 500 mg, Oral, BID, First dose on Mon11/30/21 at 2000, Until Disc ontinued losartan (COZAAR) tablet 50 mg 922 (Given - Provider: Tahmina Dorado RN) 826 (Given - Provider: Ivelisse Dorado, CHANDLER) 0852 (Given - Provider: Ariadna Carlos, CHANDLER) 50 mg, Oral, DAILY, First dose on Mon12/01/21 at 0800, Until Dis continued magnesium oxide (MAG-OX) tablet 400 mg 922 (Given - P rovider: Ivelisse Dorado RN) 826 (Given - Provider: Ivelisse Dorado, CHANDLER) 08 (Give n - Provider: Ariadna Carlos RN) 400 mg, Oral, DAILY, First dose on Mon12/01/21 at 0800 metoprolol tartrate (LOPRESSOR) tablet 12.5 mg 2101 (G iven - Provider: Rashard Conteh, CHANDLER) 826 (Given - Provider: Ivelisse Dorado RN)2004 (Given - Provider: Nely Escobar, CHANDLER) 08 (Given - Provider: Ariadna Carlos, CHANDLER) 12.5 mg, Oral, BID, First dose on Mon at 2000, Until Discontinued, Take with food Hold for HR <60, SBP <100 multivitamin with minerals tablet 1 Tablet 922 (Given - Provider: Ivelisse Dorado RN) 825 (Given - Provider: Ivelisse Dorado RN) 08 (Give n - Provider: Ariadna Carlos RN) 1 Tablet, Oral, DAILY, First dose on Mon12/01/21 at 0800, Until Discontinued warfarin (COUMADIN) tablet 10 mg (CANCELED) 1712 (Give n - Provider: Rashard Conteh, CHANDLER) 10 mg, Oral, WARFARIN - DAILY, First dos e on Mon11/30/21 at 1930, Until Discontinued, Hazardous waste disposal required Vitamin K antagonizes the effects of warfarin. Maintain consistent intake of vitam in K in the diet. HAZARDOUS DRUG Prepara tion: Single glove Administration: If no touch, no PPE; if handling, single glove warfarin (COUMADIN) tablet 10 mg 10 mg, Oral, WARFARIN - DAILY, First dos e (after last reorder) on Mon12/03/21 at 1800, Until Discontinued, Hazardous waste disposal required Vitamin K antagonizes the effects of warfarin. Maintain consi stent intake of vitamin K in the diet. H AZARDOUS DRUG Preparation: Single glove Administration: If no touch, no PPE; if handling, single glove warfarin (COUMADIN) tablet 7.5 mg (COMPLETED) 1827 (Given - Provider: Ivelisse Dorado RN) 7.5 mg, Oral, WARFARIN - DAILY, First do se (after last modification) on Mon12/02/21 at 1800, Last dose on Mon12/02/21 at 1800, For 1 dose, Hazardous waste disposal required Vitamin K antagonizes the eff ects of warfarin. Maintain consistent in take of vitamin K in the diet. HAZARDOUS DRUG Preparation: Single glove Administration: If no touch, no PPE; if handling, single glove zinc sulfate (ORAZINC) tablet 110 mg (CANCELED) 921 ( Given - Provider: Ivelisse Dorado RN) 110 mg, Oral, DAILY, First dose on Mon12/01/21 at 0800 PRN Medication Order 12/01/2021 12/02/2021 12/03/2021 acetaminophen (TYLENOL) tablet 500 mg 116 (Given - Pr ovider: Hilda Silver RN) 500 mg, Oral, Q6H PRN, Pain/Fever, Start ing on Mon12/01/21 at 0112, Until Mon12/03/21 at 1652 benzocaine-menthol (CEPACOL) lozenge 1 Lozenge 1 Lozenge, Oral, Q2H PRN, Throat Pain, C ough, Starting on Mon11/30/21 at 1521, Until Mon12/03/21 at 1652 calcium carbonate (TUMS) chewable tablet 1,000 mg 1,000 mg, Oral, Q4H PRN, Heartburn, Upse t Stomach, Starting on Mon11/30/21 at 1521, Until Mon12/03/21 at 1652, For indigestion/upset stomach lidocaine (ASPERCREAM) 4 % patch 1 Patch 1 Patch, Transdermal, DAILY PRN, Pain, S tarting on Mon11/30/21 at 1541, Until Mon12/03/21 at 1652, Apply patch to painful area. Patch may remain in place for up to 12 hours in any 24 hour period, i.e. p atches placed at 0800 should be removed at 2000. May cut patch to appropriate size. melatonin tablet 6 mg 6 mg, Oral, HS PRN, Sedation, Starting o n Mon11/30/21 at 1521, Until Mon12/03/21 at 1652 sennosides-docusate sodium (SENOKOT S) 8.6-50 MG per t ablet 1 Tablet 2255 (Given - Provider: Rashard Conteh RN) 1 Tablet, Oral, DAILY PRN, Constipation, Starting on Mon11/30/21 at 1940, Until Mon12/03/21 at 1652, as laxative/stimulant, stool-softening agent documented in this encounter Care Teams Job Press Feeder Relationship Specialty Start Date End Date Jaiden Holcomb MD PCP - General Internal Medicine 11/30/[address] [place], [place] [phone] documented as of this encounter
--- OUTSIDE RECORDS SUMMARY | 2022-06-15 12:36 | XMS_ITS | Clinical Summary ---
:1945 Author [facility] Address [address] [place] [address] Care Team Providers Name Role Phone Jaiden Holcomb MD Primary Care Provider Source Comments You are receiving this document as you are listed as the primary care provider,follow-up provider, or the patient has been referred to you for consultation.This is in compliance with the Medicare and Medicaid EHR Incentive Program,which states Providers who transition their patient to another setting of careor provider of care or refers their patient to another provider of care shouldprovide summarycare record for each transition of care or referral. [facility] Allergies Active Allergy Reactions Severity Noted Date Comments Cephalexin Hives High 07/25/2003 Keflex - hives Lanolin Other, see comments 07/25/2003 skin irr itation Lisinopril Cough 10/06/2011 Mupirocin Rash Low 06/26/2007 Neomycin Other, see comments 07/25/2003 skin irr itation Penicillins Hives High 07/25/2003 Medications Medication Sig Dispensed Refills Start End Status Date Date warfarin (COUMADIN) Take 10 mg by 0 Active 10 MG tablet mouth daily. 8 cetirizine (ZYRTEC) Take 10 mg by 0 Active 10 MG tablet mouth two times a 8 day. levETIRAcetam Take 500 mg by 0 A ctive (KEPPRA) 500 MG mouth two times a tablet day. zinc gluconate 50 Take 50 mg by 0 Active MG tablet mouth daily. docusate sodium Take 100 mg by 0 Active (COLACE) 100 MG mouth every 24 capsule hours as needed for Constipation. nystatin Apply topically 0 Acti ve (MYCOSTATIN) 040372 two times daily UNIT/GM powder as needed. Beneath bilateral breast/groin losartan (COZAAR) Take 50 mg by 0 Active 50 MG tablet mouth daily. magnesium oxide Take 400 mg by 0 Active (MAG-OX) 400 MG mouth daily. tablet Cholecalciferol Take 1 Tablet by 0 Active (VITAMIN D3) 125 mouth daily. MCG (5000 UT) TABS multivitamin with Take 1 Tablet by 0 Active minerals tablet mouth daily. acetaminophen Take 500-1,000 mg 0 Active (TYLENOL) 500 MG by mouth every 4 tablet hours as needed for Pain. Maximum acetaminophen dose is 4000 mg in 24 hours omega-3 fatty acids Take 2 g by mouth 0 Active (FISH OIL) 1000 MG daily. capsule ascorbic acid (AKA Take 1,000 mg by 0 Active VITAMIN C) 1000 MG mouth daily. tablet Multiple Take 1 Tablet by 0 Act vance Vitamins-Minerals mouth two times a (PRESERVISION day. AREDS) TABS atorvastatin Take 1 Tablet (40 90 Tablet 3 Active (LIPITOR) 40 MG mg) by mouth 2 023 tabletIndications: every evening. to lower Indications: to cholesterol lower cholesterol metoprolol tartrate Take one-half 90 Tablet 3 Active (LOPRESSOR) 25 MG Tablet (12.5 mg) 2 tablet by mouth two times a day. empagliflozin Take 1 Tablet (10 90 Tablet 3 Active (JARDIANCE) 10 MG mg) by mouth 2 023 tablet daily. furosemide (LASIX) Take 1 Tablet (20 90 Tablet 3 05/09 Active 20 MG mg) by mouth 2 023 tabletIndications: daily. Heart Failure Indications: Cardiac Failure atenolol (TENORMIN) Take 25 mg by 0 Discontinued 25 MG tablet mouth two times a 6 022 (Patient day. Discharged ) Active Problems No known active problems Immunizations Name Administration Dates Next Due Flu Vac (3+ yrs) 04/26/2012, 04/19/2010, 04/06/2009, 05/05/2008, 05/17/2007, 05/04/2006, 05/13/2005, 05/27/2004, 05/08/2002 Flu Vac Preserv Free (3+yrs) 04/19/2010 Influenza IIV3 (Trivalent) Fluzone 04/23/2019, 05/07/2018, 0 04/07/2017, Highdose, 65+ Yrs (29742) 04/25/2016, 04/21/2015, 05/02/2014 , 04/29/2013, 04/21/2011 Influenza IIV4 (Quadrivalent) 05/13/2021, 04/30/2020 Fluzone, 65+ Yrs PCV13 (Prevnar) 12/30/2014 PPSV23 (Pneumovax) 12/06/2011, 05/13/2005 Pfizer (Comirnaty) COVID-19, 12+ Yrs 05/13/2021, 10/08/2020, 09/17/2020 Purple Top Td 08/27/2004 Tdap 12/30/2014 Social History Tobacco Use Types Packs/Day Years [...] Assigned at Date Recorded Not on file Last Filed Vital Signs Vital Sign Reading [...] Mass Index 53.97 12/01/2021 12:00 AM CDT Plan of Treatment Health Maintenance Due Date Last Done Comments Hep C Screening (Preventive 1945 Services) Zoster/Shingles (1 of 2) 01/05/1996 Dexa 2011 Medicare Annual Wellness 12/05/2012 12/06/2011 Visit COVID-19 Vaccine (4 - 07/08/2021 05/13/2021, 10/08/2020, Booster for Pfizer series) 09/17/2020 Influenza (#1) 2022 05/13/2021, 04/30/2020, 04/23/2019, Additional history exists DTaP/Tdap/Td (2 - Tdap) 12/30/2024 12/30/2014, 08/27/2004 Pneumococcal 65+ Yrs Completed 12/30/2014, 12/06/2011, 05/13/2005 HepA Aged Out No longer eligib le based on patient 's age to complete this topic HepB Aged Out No longer eligib le based on patient 's age to complete this topic Hib Aged Out No longer eligib le based on patient 's age to complete this topic IPV (Polio) Aged Out No longer eligib le based on patient 's age to complete this topic MCV4 Aged Out No longer eligib le based on patient 's age to complete this topic Insurance Payer Benefit Plan Subscriber ID Effective Phone Address Typ e / Group Dates [facility] [id number] 2018-Pre Commercial DENTAL PLAN OF [place] DENTAL sent BCBS BC MEDICARE [id number] 2017-Pre [phone] Medicare SUPPLEMENT 01 sent [id number] [place] [id number] MEDICARE MEDICARE [id number] 2010-Pre Medic are sent Charlette Brush Personal/Family Self 1945 [address] [place] [id number] Charlette Brush Personal/Family Self 1945 [address] [place] [id number] Charlette Brush HP Medical Self 1945 [id number] [address] (Home) [place] [id number] Advance Directives Latest Code Status on File Code Status Date Activated Date Inactivated Comments Full Code 11/30/2021 3:27 PM 12/03/2021 4:57 PM Care Teams 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
--- OUTSIDE RECORDS SUMMARY | 2022-06-15 12:37 | XMS_ITS | Encounter Summary ---
:1945 Author Organization [facility] Address [address] [place] [address] Care Team Providers Name Role Phone Unavailable Primary Care Provider Unavailable Reason for Visit Reason Comments Dental Hygiene no cc's Encounter Details Date Type Department Care Team Description 06/07/2017 [facility] (no Dentistry [facility] cc's) [phone] [facility] [id number] [place] [phone] Social History Tobacco Use Types Packs/Day Years [...] Sign Reading Time Taken Comments Blood Pressure 116/63 06/07/2017 8:52 AM ASSISTANT LIBRARIAN Pulse 64 06/07/2017 8:52 AM ASSISTANT LIBRARIAN Temperature - - Respiratory Rate - - Oxygen Saturation - - Inhaled Oxygen Concentration - - Weight - - Height - - Body Mass Index - - documented in this encounter Patient Instructions Patient InstructionsAshlee Silveira [facility] - 06/07/2017 8:50 AM CST Your next hygiene recall is due 12/04/2017 YOUR PERSONAL DENTAL RISK REPORT Caries (Tooth Decay) Risk Periodontal (Gum Disease) Risk Oral Cancer Risk High Moderate Low X This exam High Moderate X Low This exam Elevated Low X This exam Your risk level: Low Congratulations. The results of your dental risk assessment indicate you are atlow risk for tooth decay. Making healthy life style choices including brushing twice a day; daily flossing and healthy dietary choices should help you maintain this low risk. We look forward to seeing you at your next visit. Your risk level: Moderate Your risk level: Low Congratulations. The results of your dental risk assessment indicate you are at low risk for oral cancer. Making healthy life stylechoices such as not using tobacco and low to moderate alcohol use should help you maintain this low risk. We look forward to seeing you at your next. Caries (Tooth Decay) Risk Periodontal (Gum Disease) Risk Oral Cancer Risk Your risk factors Your risk factors Your risk factors How to reduce your risk Recall at 6-12 months Instruction on brushing; flossing and use of oral hygiene adjunct Have had a diagnosis of gum disease; with or without past treatment How to reduce your risk Oral hygiene instruction by the dentist; dental hygienist or dental phlebotomist medical lab assistant How to reduce your risk STANT LIBRARIAN documented in this encounter Progress Notes Ashlee Silveira RDH - 06/07/2017 8:50 AM CST PROPHY NOTE Collaborative Agreement: ?? Patient consents to have charting, radiographs and prophylaxis by the dental hygienist performed with the understanding that this care is not a substitute for examination by a dentist. Presentation ?? Oral Hygiene: normal ?? Plaque: generalized; moderate; interproximal, mandibular anterior and posterior buccal ?? Calculus:localized; light; interproximal and mandibular anterior ?? Stain: none ?? Bleeding: generalized; light ?? Gingival tissue: normal ?? Mucogingival concerns: absent Activities ?? Treatment included: hand scale, essential selective polishing and flossed all contacts Patient Education ?? Discussion topics: caries risk assessment, fluoride rinse, oral cancer risk and periodontal risk Remineralization counseling ?? Patient's readiness for change is: maintenance ?? Caries risk factors to be addressed: oral hygiene ?? Patient has been compliant with previous recommendations to address caries risk ?? Reviewed: reviewed diet and reviewed oral hygiene ?? Procedures: none ?? Today these health education materials were distributed: none ?? Prescriptions for pharmacy and/or over the counter products: OTC Fluoride ?? Follow up plan: 6mo recall Completed dental procedures in this visit ??? PROPHYLAXIS-ADULT RECALL ??? PERIODIC ORAL EVALUATION Chief Complaint: Treatment Options: ??? [id number] Ashlee Silveira 06/07/2017, 9:53 AM STANT LIBRARIAN Zuly Archuleta DDS - 06/07/2017 8:50 AM CST RECALL EXAM NOTE Chief Complaint Patient presents with ??? Dental Hygiene no cc's Chart Review ?? Reviewed health history, dental history, problem list, periodontal charting and radiographs with the patient Soft tissue, head and neck examination ?? Lips: normal ?? Tongue: normal ?? Palate: normal ?? Throat: normal ?? Floor of the mouth: normal ?? Mucosa: normal ?? Head and neck: normal TMD Evaluation ?? Palpation pain: none ?? Joint sounds: none ?? Pain with range of motion: none Occlusal examination ?? Angle relationship: Right molar: class I Right cuspid: class I Left molar: N/A Left cuspid:class I ?? Maxillary midline: within normal limits ?? Mandibular midline: within normal limits ?? Overbite: 1 mm ?? Overjet: 1 mm ?? Crossbite: 7,8,10 ?? Space loss: none ?? Crowding: not evident ?? Occlusion: all teeth ?? Attrition: normal ?? Erosion: absent ?? Overall occlusal relationship: stable Cosmetic concerns ?? Patient???s perception: acceptable ?? Dentist???s perception: acceptable Treatment Review and Follow-up ?? Dental Findings: were described to the patient and they did express understanding. ?? Treatment options and prognosis: were discussed ?? Informed patient consent: was obtained after all questions were answered. ?? Recommended Recall Examination: 6 months Recall prophy: 6 months ?? Planned Recall Examination: 6 months Recall prophy: 6 months Zuly Archuleta DDS 06/07/2017, 9:51 AM STANT LIBRARIAN documented in this encounter Plan of Treatment Not on filedocumented as of this encounter Procedures Procedure Name Priority Date/Time Associated Diagnosis Comme nts 4 O EXISTING AMALGAM Routine 06/07/2017 9:51 AM ASSISTANT LIBRARIAN FILLING XDGU-MOVDEORV-HICD Routine 06/07/2017 9:44 AM ASSISTANT LIBRARIAN Localized gi ngival recession PERIODIC ORAL Routine 06/07/2017 9:44 AM ASSISTANT LIBRARIAN Localized gingiva l EVALUATION recession PROPHYLAXIS-ADULT Routine 06/07/2017 9:44 AM ASSISTANT LIBRARIAN Localized gin gival RECALL recession 17 O EXISTING AMALGAM Routine 05/22/2013 12:00 AM FILLING ASSISTANT LIBRARIAN 2 EXISTING ROOT CANAL Routine 06/08/2010 12:00 AM TREATMENT ASSISTANT LIBRARIAN 2 EXISTING PFM CROWN Routine 06/08/2010 12:00 AM ASSISTANT LIBRARIAN 15 EXISTING PFM CROWN Routine 06/08/2010 12:00 AM ASSISTANT LIBRARIAN 28 O EXISTING COMPOSITE Routine 06/08/2010 12:00 AM FILLING ASSISTANT LIBRARIAN 5 O EXISTING COMPOSITE Routine 06/08/2010 12:00 AM FILLING ASSISTANT LIBRARIAN 9 F EXISTING COMPOSITE Routine 06/08/2010 12:00 AM FILLING ASSISTANT LIBRARIAN 16 O EXISTING AMALGAM Routine 06/08/2010 12:00 AM FILLING ASSISTANT LIBRARIAN 13 O EXISTING AMALGAM Routine 06/08/2010 12:00 AM FILLING ASSISTANT LIBRARIAN 32 O EXISTING AMALGAM Routine 06/08/2010 12:00 AM FILLING ASSISTANT LIBRARIAN 31 O EXISTING AMALGAM Routine 06/08/2010 12:00 AM FILLING ASSISTANT LIBRARIAN 29 O EXISTING AMALGAM Routine 06/08/2010 12:00 AM FILLING ASSISTANT LIBRARIAN 20 O EXISTING AMALGAM Routine 06/08/2010 12:00 AM FILLING ASSISTANT LIBRARIAN 21 O EXISTING AMALGAM Routine 06/08/2010 12:00 AM FILLING ASSISTANT LIBRARIAN 16 O EXISTING AMALGAM Routine 06/08/2010 12:00 AM FILLING ASSISTANT LIBRARIAN 18 DO EXISTING AMALGAM Routine 06/08/2010 12:00 AM FILLING ASSISTANT LIBRARIAN documented in this encounter Visit Diagnoses Diagnosis Localized gingival recession - Primary Gingival recession, localized Dental caries on smooth surface penetrat ing into pulp Dental caries of smooth surface Visit for periodic health examination Unspecified general medical examination Gingivitis, chronic, non-plaque induced Chronic gingivitis, non-plaque induced documented in this encounter
--- OUTSIDE RECORDS SUMMARY | 2022-06-15 12:37 | XMS_ITS | Encounter Summary ---
:1945 Author Organization [facility] Address [address] [place] [address] Care Team Providers Name Role Phone Jaiden Holcomb MD Primary Care Provider Reason for Visit Auth/Cert Specialty Diagnoses / Procedures Referred By Contact Refer red To Contact Diagnoses Acute pulmonary edema (HRC) Chest pain, unspecified type Acute pulmonary edema (HRC) Chest pain, unspecified type Acute pulmonary edema (HRC) Referral ID Status Reason Start Date Expiration Date Visits Requ ested Visits Authorized [id number] 1 1 Encounter Details Date Type Department Care Team Description 11/30/2021 Ancillary Procedure [facility] [address] [place] [id number] Social History Tobacco Use Types Packs/Day Years [...] Procedure Name Priority Date/Time Associated Comments Diagnosis INPATIENT TELEMETRY Routine 12/03/2021 10:48 AM R esults for this MONITORING CDT procedure are i n the results section. INPATIENT TELEMETRY Routine 12/02/2021 10:50 AM R esults for this MONITORING CDT procedure are i n the results section. INPATIENT TELEMETRY Routine 12/02/2021 12:02 AM R esults for this MONITORING CDT procedure are i n the results section. INPATIENT TELEMETRY Routine 12/01/2021 3:53 PM Re sults for this MONITORING CDT procedure are i n the results section. INPATIENT TELEMETRY Routine 12/01/2021 2:12 PM Re sults for this MONITORING CDT procedure are i n the results section. INPATIENT TELEMETRY Routine 12/01/2021 12:44 AM R esults for this MONITORING CDT procedure are i n the results section. XR CHEST 2 VIEWS STAT 11/30/2021 12:59 PM Resu lts for this CDT procedure are i n the results section. documented in this encounter Results INPATIENT TELEMETRY MONITORING (12/03/2021 10:48 AM CDT) [facility] Method Time Signature TELE QRS DURATION 0.09 MUSE G[facility] TELE Atrial Fib MUSE GHP INTERPRETATION Ariadna Carlos RN Specimen (Source) Anatomical Collection Method Collection Time Re ceived Time Location / / Volume Laterality 12/03/2021 10:48 AM CDT Narrative MUSE GHP - 12/03/2021 10:56 AM CDT Atrial Fib ??Ariadna Carlos RN Internal Processing Epic EKG Performing Organization Address [facility] Code Phon e Number MUSE GHP [address] [place] [address] INPATIENT TELEMETRY MONITORING (12/02/2021 10:50 AM CDT) [facility] Method Time Signature TELE QRS DURATION 0.09 MUSE GHP TELE QT 0.44 MUSE GHP TELE Atrial Fib MUSE GHP INTERPRETATION HR 71 Specimen (Source) Anatomical Collection Method Collection Time Re ceived Time Location / / Volume Laterality 12/02/2021 10:50 AM CDT Narrative MUSE GHP - 12/02/2021 10:55 AM CDT Atrial Fib ??HR 71 Internal Processing Epic EKG Performing Organization Address [facility] Phon e Number MUSE GHP [address] [place] [address] INPATIENT TELEMETRY MONITORING (12/02/2021 12:02 AM CDT) Patholo gist Method Time Signature TELE QRS DURATION 0.07 MUSE GHP TELE R-R INTERVAL 1.04 MUSE GHP TELE QT 0.43 MUSE GHP TELE QTC 0.42 MUSE GHP TELE Atrial Fib MUSE GHP INTERPRETATION Slow Tori Moore, RN Specimen (Source) Anatomical Collection Method Collection Time Re ceived Time Location / / Volume Laterality 12/02/2021 12:02 AM CDT Narrative MUSE GHP - 12/02/2021 12:05 AM CDT Atrial Fib ??Gurpreet Moore, RN Internal Processing Epic EKG Performing Organization Address City/[facility]/ZIP Code Phon e Number MUSE GHP [address] [place] [phone] INPATIENT TELEMETRY MONITORING (12/01/2021 3:53 PM CDT) Patholo gist Method Time Signature TELE QRS DURATION 0.08 MUSE GHP TELE Atrial Fib MUSE GHP INTERPRETATION HR 75, CC, RN Specimen (Source) Anatomical Collection Method Collection Time Re ceived Time Location / / Volume Laterality 12/01/2021 3:53 PM CDT Narrative MUSE GHP - 12/01/2021 4:15 PM CDT Atrial Fib ??HR 75, CC, RN Internal Processing Epic EKG Performing Organization Address [facility] Code Phon e Number MUSE GHP [address] [place] [address] INPATIENT TELEMETRY MONITORING (12/01/2021 2:12 PM CDT) Patholo gist Method Time Signature TELE QRS DURATION 0.09 MUSE GHP TELE QT 0.41 MUSE GHP TELE Atrial Fib MUSE GHP INTERPRETATION HR 64 PVC's Specimen (Source) Anatomical Collection Method Collection Time Re ceived Time Location / / Volume Laterality 12/01/2021 2:12 PM CDT Narrative MUSE GHP - 12/01/2021 2:27 PM CDT Atrial Fib ??HR 64 PVC's Internal Processing Epic EKG Performing Organization Address [facility] Code Phon e Number MUSE GHP [address] [place], [place] [phone] INPATIENT TELEMETRY MONITORING (12/01/2021 12:44 AM CDT) Patholo gist Method Time Signature TELE QRS DURATION 0.06 MUSE GHP TELE QT 0.42 MUSE GHP TELE Atrial Fib MUSE GHP INTERPRETATION Specimen (Source) Anatomical Collection Method Collection Time Re ceived Time Location / / Volume Laterality 12/01/2021 12:44 AM CDT Narrative MUSE GHP - 12/01/2021 12:55 AM CDT Atrial Fib Internal Processing Epic EKG Performing Organization Address City/State/ZIP Code Phon e Number [facility] [address] [place] [address] documented in this encounter Visit Diagnoses Not on filedocumented in this encounter Care Teams Mash Preparatory Operator Relationship Specialty Start Date End Date Jaiden Holcomb MD PCP - General Internal Medicine 11/30/21 [address] [facility] [place] [id number] documented as of this encounter
--- OUTSIDE RECORDS SUMMARY | 2022-06-15 12:37 | XMS_ITS | Encounter Summary ---
:1945 Author Organization [facility] Address [address] [place] [address] Care Team Providers Name Role Phone Unavailable Primary Care Provider Unavailable Reason for Visit Reason Comments No Show first fail letter sent Encounter Details Date Type Department Care Team Description 12/05/2017 Telephone [place] Олег Sharp No Show (first fail Dentistry [address] [facility] letter sent) [address] [place], [place] [phone] Social History Tobacco Use Types Packs/Day Years [...] Not on filedocumented as of this encounter Visit Diagnoses Not on filedocumented in this encounter
--- OUTSIDE RECORDS SUMMARY | 2022-06-15 12:37 | XMS_ITS | Encounter Summary ---
:1945 Author Organization [facility] Address [address] [place] [address] Care Team Providers Name Role Phone Chastity Montero MD Unavailable [phone] Johnnie Alcocer MD Unavailable Mtm, Ea Complex Unavailable Unavailable Svetlana Osman [facility] Unavailable [phone] Haylie Cheung [facility] Unavailable [phone] Jaiden Holcomb MD Unavailable Brook Sánchez MD Unavailable Osmar Kidd MD Unavailable Erlinda Barber MD Unavailable Yane Barraza MD Primary Care Provider Gaye Patrick RN Unavailable Unavailable Kenya Abernathy APRN SOCIAL SCIENCE TEACHER Unavailable [phone] Hayley German OD Unavailable [phone] Haylie Cheung [facility] Unavailable [phone] Encounter Details Date Type Department Care Team Description 05/17/[address] [facility] Ruben Almaguer history of pulmonary embolism (Primary Dx); Therapy Visit Anticoagulation Monica Rivers RN supervisor 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s current use of 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; Clinic Atrial fibrillation, unspeci fied type (H) [address] [place] [address] Social History Tobacco Use Types Packs/Day Years Used Date Smoking Tobacco: Never Smokeless Tobacco: Never Alcohol Use Standard Drinks/Week Comments No 0 (1 standard drink = 0.6 oz pure alcoho l) Alcohol Habits Answer Date Recorded How often do you have a drink containing alcohol? Never 05/03/2021 How many drinks containing alcohol do you have on a typical Not asked day when you are drinking? How often do you have six or more drinks on one occasion? Ne dano 05/03/2021 Social Isolation Answer Date Recorded In a typical week, how many times do you More than three yisel es a week 05/03/2021 talk on the phone with family, friends, or neighbors? How often do you get together with friends Twice a week 05/03/2021 or relatives? How often do you attend zoroastrianism or More than 4 times per year 05/03/2021 restorationism services? Do you belong to any clubs or No 05/03/2021 organizations such as zoroastrianism groups, unions, fraternal or athletic groups, or school groups? How often do you attend meetings of the Never 09/08/2019 clubs or organizations you belong to? Are you now , , , 05/03/2021 , never or living with a partner? Physical Activity Answer Date Recorded On average, how many days per week do you engage in moderate to 7 days 05/03/2021 strenuous exercise (like walking fast, running, jogging, dancing, swimming, biking, or other activities that cause a light or heavy sweat)? On average, how many minutes do you engage in exercise at th is 40 min 05/03/2021 level? Stress Answer Date Recorded Do you feel stress - tense, restless, nervous, or Only a lit tle 05/03/2021 anxious, or unable to sleep at night because your mind is troubled all the time - these days? Financial Resource Strain Answer Date Recorded How hard is it for you to pay for the very basics like Not h lucila at all 05/03/2021 food, housing, medical care, and heating? Food Insecurity Answer Date Recorded Within the past 12 months, you worried that your food would Never true 05/03/2021 run out before you got money to buy more. Within the past 12 months, the food you bought just didn't N ever true 05/03/2021 last and you didn't have money to get more. Transportation Needs Answer Date Recorded In the past 12 months, has lack of transportation kept you f rom No 05/03/2021 medical appointments or from getting medications? In the past 12 months, has lack of transportation kept you f rom No 05/03/2021 meetings, work, or getting things needed for daily living? Housing Stability Answer Date Recorded In the last 12 months, was there a time when you were not ab le No 05/03/2021 to pay the mortgage or rent on time? In the last 12 months, how many places have you lived? 1 05/03/2021 In the last 12 months, was there a time when you did not hav e a No 05/03/[address] or slept in a long term (including now)? Education Answer Date Recorded What is the highest level of school Bachelor's degree (e.g., BA, AB, 01/05/2019 you have completed or the highest BS) degree you have received? Sex Assigned at Date Recorded Female 12/24/2018 12:35 PM CDT COVID-19 Exposure Response Date Recorded In the last 10 days, have you been in contact with No / Unsu re 05/17/2022 8:26 AM CDT someone who was confirmed or suspected to have Coronavirus/COVID-19? documented as of this encounter Progress Notes Monica Almaguer RN - 05/17/2022 10:02 AM CDT ANTICOAGULATION MANAGEMENT Charlette Velma Brush 77 year old female is on warfarin with therapeutic INR result. (Goal INR 2.0-3.0) Recent labs: (last 7 days) 05/17/22 0000 INR 2.6 ASSESSMENT ??? Source(s): Chart Review and Patient/Caregiver Call ??? Warfarin doses taken: Warfarin taken as instructed ??? Diet: No new diet changes identified ??? New illness, injury, or hospitalization: No ??? Medication/supplement changes: None noted ??? Signs or symptoms of bleeding or clotting: No ??? Previous INR: Therapeutic last 2(+) visits ??? Additional findings: None PLAN Recommended plan for no diet, medication or health factor changes affecting INR Dosing Instructions: Continue your current warfarin dose with next INR in 2 weeks Summary As of 05/17/2022 Full warfarin instructions: 5 mg every Sat; 10 mg all other days; Starting 05/17/2022 Next INR check: 05/31/2022 Telephone call with Charlette who agrees to plan and repeated back plan correctly Patient to recheck with home meter Education provided: ??? Please call back if any changes to your diet, medications or how you've been taking warfarin ??? 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 Declined MBE 04/14/2022. She may ask for it in the future. Anticoagulation Care Providers Provider Role Specialty Phone number Galdino Valdez MD Referring Family Medicine [phone] Jaiden Holcomb MD Referring Internal Medicine [phone] Yane Barraza MD Referring Internal Medicine [phone] Lucero Stevenson MD Responsible Internal Medicine [phone] documented in this encounter Plan of Treatment Upcoming Encounters Date Type Specialty Care Team Description 11/15/2022 Virtual Visit Haylie Wakefield, [facility] [address] [place] [address] (Wo rk) 11/15/2022 Virtual Visit IM/Peds Yane Barraza MD [address] [facility] [place] [address] (Wo rk) 03/03/2023 Virtual Visit Neurology Erlinda Barber MD [address] [facility] [address] [place], [place] [id number] (Wo rk) documented as of this encounter Visit Diagnoses Diagnosis 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 embolism - Primary nursing home current use of anticoagulant t herapy Atrial fibrillation, unspecified type (H ) documented in this encounter Additional Health Concerns Assessment Noted Time PHQ-9 Depression Total Score: 4 04/12/2019 7:03 AM CDT documented as of this encounter Care Teams Software Development Coordinator Relationship Specialty Start Date End Date Yane Barraza MD PCP - General Internal Medicine 12/08/[address] [facility] [place] [address] Chastity Montero MD Dermatology 09/23/14 MD Martha [address] [facility] [address] [place], [place] [phone] Johnnie Alcocer MD Surgeon General Surgery 03/23/17 [address] [place], [place] [phone] Mtm, Ea Complex 04/23/19 Svetlana Osman Pharmacist Pharmacotherapy 04/23/19 Era, [facility] [address] [place] [id number] Haylie Cheung, Pharmacist Pharmacist 09/11/19 [facility] [address] [place] [address] Jaiden Holcomb Assigned PCP 05/24/20 MD Jayesh [address] [place] [address] [phone] Brook Sánchez MD Assigned Infectious 07/04/[address] Disease Provider [place], [place] [phone] Osmar Kidd MD Assigned Sleep Provider 09/26/21 [address] [place] [address] Erlinda Barber MD Assigned Neuroscience 10/24/21 [address] [facility] Provider [address] [place], [place] [phone] Gaye Patrick, RN Personal Advocate & 01/18/22 Liaison (PAL) Kenya Abernathy APRN Assigned Heart and 01/22/22 SOCIAL SCIENCE TEACHER Vascular Provider [address] [place] [id number] Hayley German Assigned Surgical 02/12/22 KENNETH Yan Provider [address] [facility] [place] [id number] Haylie Cheung, Assigned MTM Pharmacist 04/13/22 [facility] [address] [facility] [place] [address] documented as of this encounter
--- OUTSIDE RECORDS SUMMARY | 2022-06-15 12:37 | XMS_ITS | Clinical Summary ---
:1945 Author Organization [facility] Address [address] [place] [id number] Care Team Providers Name Role Phone Chastity Montero MD Unavailable [phone] Johnnie Alcocer MD Unavailable Mtm, Ea Complex Unavailable Unavailable Svetlana Osman [facility] Unavailable [phone] Haylie Cheung [facility] Unavailable [phone] Jaiden Holcomb MD Unavailable Brook Sánchez MD Unavailable Osmar Kidd MD Unavailable Erlinda Barber MD Unavailable Yane Barraza MD Primary Care Provider Gaye Patrick RN Unavailable Unavailable Kenya Abernathy APRN GRINDING MACHINE OPERATOR PORTABLE Unavailable [phone] Hayley German OD Unavailable [phone] Haylie Cheung [facility] Unavailable [phone] Allergies Active Allergy Reactions Severity Noted Date Comments Mupirocin Calcium Rash Low 06/26/2007 Cephalexin Hives 07/25/2003 Keflex - hives Ciprofloxacin 05/14/2019 Developed rash while on Cipro and Clind amycin Clindamycin 05/14/2019 Developed rash while taking Clindamy francine and Cipro Lanolin Other (See Comments) 07/25/2003 skin ir ritation Lisinopril Cough 10/06/2011 Mupirocin Rash, Unknown Low 06/26/2007 Neomycin Other (See Comments) 07/25/2003 skin ir ritation Penicillins Hives 07/25/2003 Has tolerated amp/sulbactam Zoster Vaccine Live 12/04/2020 Medications Medication Sig Dispensed Refills Start End Status Date Date cetirizine Take 10 mg by 0 Activ e (ZYRTEC) 10 MG mouth 2 times tablet daily Multiple Take 1 tablet by 0 Act vance Vitamins-Minerals mouth 2 times (PRESERVISION/LUTE daily IN) CAPS hydrocortisone 2.5 Daily as needed 180 g 3 05/14/20 Active % to rash on arms 19 ointmentIndication and legs s: Dermatitis vitamin C Take 1,000 mg by 0 Act vance (ASCORBIC ACID) mouth daily 1000 MG TABS Addy-3 Fatty Take 1 g by 0 Acti ve Acids (FISH OIL mouth daily PO) [id number] Probiotic Product Take 1 capsule 0 Active (PROBIOTIC PO) by mouth daily Renew Life Probiotic bisacodyl Take 5 mg by 0 12/05/19 Active (DULCOLAX) 5 MG EC mouth daily as 21 tabletIndications: needed Constipation, unspecified constipation type acetaminophen Take 500 mg by 0 05/04/20 A ctive (TYLENOL) 500 MG mouth every 8 21 tabletIndications: hours as needed Pain Multiple Take 1 tablet by 0 05/04/20 Act vance Minerals-Vitamins mouth daily 21 (CITRACAL MAXIMUM Generic Centrum PLUS) TABS Silver from [employer] (Vitamin D 1000 international unit(s) and calcium 300mg) MAGNESIUM Take 665 mg by 0 Activ e GLYCINATE PO mouth daily losartan (COZAAR) TAKE 1 TABLET(50 90 tablet 1 03/08/20 Active 50 MG MG) BY MOUTH 22 tabletIndications: DAILY Essential hypertension, benign levETIRAcetam Take 1 tablet 180 tablet 3 04/08/20 A ctive (KEPPRA) 500 MG (500 mg) by 22 tabletIndications: mouth 2 times Recurrent seizures daily (H) Docusate Calcium Take 1 capsule 0 Active (STOOL SOFTENER by mouth daily PO) as needed Cholecalciferol Take 1 capsule 90 capsule 3 05/17/20 Active (VITAMIN D) 125 (5,000 Units) by 22 MCG (5000 UT) mouth daily capsule ferrous sulfate Take 1 tablet 90 tablet 1 05/17/20 Active (FEROSUL) 325 (65 (325 mg) by 22 Fe) MG mouth every tabletIndications: other day Iron deficiency anemia, unspecified iron deficiency anemia type furosemide (LASIX) Take 1 tablet 90 tablet 3 05/17/20 Active 20 MG (20 mg) by mouth 22 tabletIndications: daily Atrial fibrillation, unspecified type (H), Acute diastolic heart failure (H) metoprolol Take 1 tablet 90 tablet 1 05/17/20 Activ e succinate ER (25 mg) by mouth 22 (TOPROL XL) 25 MG daily 24 hr tabletIndications: Atrial fibrillation, unspecified type (H) triamcinolone Apply topically 45 g 0 05/17/20 Active (KENALOG) 0.1 % 2 times daily as 22 external ointment needed for irritation nystatin (NYSTOP) APPLY TOPICALLY 180 g 11 05/17/20 Active 214245 UNIT/GM TO THE AFFECTED 22 external powder AREA BENEATH BILATERAL BREAST/GROIN FOLDS TWICE DAILY UNTIL RESOLVED nystatin Apply topically 90 g 11 05/17/20 Acti ve (MYCOSTATIN) daily as needed 22 [id number] UNIT/GM for dry skin external cream zinc gluconate 50 Take 1 tablet 90 tablet 3 05/17/20 Active MG (50 mg) by mouth 22 tabletIndications: daily Pressure ulcer of ischium, left, stage IV (H) warfarin TAKE 1 TABLET(10 90 tablet 3 05/17/20 Act vance ANTICOAGULANT MG) BY MOUTH 22 (COUMADIN) 10 MG DAILY OR tablet DIRECTED BY YOUR ACC CARE TEAM. atorvastatin Take 1 tablet 90 tablet 3 05/17/20 Act vance (LIPITOR) 20 MG (20 mg) by mouth 22 tabletIndications: At Bedtime Morbid obesity (H) triamcinolone Apply topically 45 g 0 09/11/19 Discontinued (KENALOG) 0.1 % 2 times daily as 20 022 (Reorder) external needed for ointmentIndication irritation s: Dermatitis zinc gluconate 50 Take 1 tablet 90 tablet 3 10/05/19 Discontinued MG (50 mg) by mouth 22 022 (Re order) tabletIndications: daily Pressure ulcer of ischium, left, stage IV (H) ferrous sulfate Take 1 tablet 90 tablet 1 10/05/19 Discontinued (FEROSUL) 325 (65 (325 mg) by 22 022 (Reorder) Fe) MG mouth every tabletIndications: other day Iron deficiency anemia, unspecified iron deficiency anemia type Cholecalciferol Take 1 capsule 90 capsule 3 10/05/19 Discontinued (VITAMIN D) 125 (5,000 Units) by 22 022 (Reorder) MCG (5000 UT) mouth daily capsuleIndications : Vitamin D deficiency docusate sodium Take 1 capsule 90 capsule 3 10/05/19 Discontinued (COLACE) 100 MG (100 mg) by 022 (M edication capsuleIndications mouth daily as Reconciliation : Constipation, needed for Nelson an Up) unspecified constipation constipation type Patient take own Stool Softener. Recommend taking Monday,Monday ,Monday. nystatin Apply topically 90 g 11 10/05/19 Disc ontinued (MYCOSTATIN) daily as needed 22 022 ( Reorder) [id number] UNIT/GM for dry skin external creamIndications: Dermatitis nystatin (NYSTOP) APPLY TOPICALLY 180 g 11 10/05/19 Discontinued [id number] UNIT/GM TO THE AFFECTED 22 022 (Reorder) external AREA BENEATH powderIndications: BILATERAL Dermatitis BREAST/GROIN FOLDS TWICE DAILY UNTIL RESOLVED atorvastatin Take 0.5 tablets 0 12/07/19 Discontinued (LIPITOR) 40 MG (20 mg) by mouth 022 (Reorder) tablet At Bedtime warfarin TAKE 1 TABLET(10 90 tablet 1 01/11/20 Dis continued ANTICOAGULANT MG) BY MOUTH 22 022 (Re order) (COUMADIN) 10 MG DAILY OR tabletIndications: DIRECTED BY YOUR termite treater helper current ACC CARE TEAM. use of 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 metoprolol Take 1 tablet 90 tablet 1 01/12/20 Disco ntinued succinate ER (25 mg) by mouth 22 022 (Reorder) (TOPROL XL) 25 MG daily 24 hr tabletIndications: Atrial fibrillation, unspecified type (H) furosemide (LASIX) Take 0.5 tablets 90 tablet 0 01/21/2007/18 Discontinued 40 MG (20 mg) by mouth 22 022 (Re order) tabletIndications: daily Atrial fibrillation, unspecified type (H), Acute diastolic heart failure (H) Active Problems Patient Care Coordination Note Formatting of this note might be differe nt from the original. Nellie home care nurse [phone] [facility] [email or web address] Problem Noted Date Celiac high risk by genetic testing. 01/11/2022 Last Assessment & Plan: Formatting of th is note might be different from the original. Discussed TTG has not been high so no ce liac diagnosis. Could eat gluten. Patient worried that will impair wound healing. Should have yearly TTG and that is ordered Acute diastolic heart failure 12/06/2021 Last Assessment & Plan: Formatting of th is note might be different from the original. Ongoing edema. Continue diuretic. Consid er stopping statin but patient wishes to discuss further with cardiology as upcoming scheduled appointment. Constipation, unspecified constipation type 12/04/2020 Last Assessment & Plan: Formatting of th is note might be different from the original. Continued on Docusate 100mg daily as nee ded, Bisacodyl 5mg daily prn, Probiotic daily prn. Allergic reaction, initial encounter 12/04/2020 Last Assessment & Plan: Formatting of th is note might be different from the original. Patient preferred to talk with Sales And Marketing Agent about risk with Shingrix vaccine. She mentions a bad reaction when she had the Zostavax vaccine in the past. Referral placed for Sales And Marketing Agent for romero t to call and schedule. Chronic midline thoracic back pain 08/04/2020 Last Assessment & Plan: Formatting of th is note might be different from the original. Continued on tylenol prn. Umbilical hernia without obstruction and without gangr holly 08/03/2020 Last Assessment & Plan: Formatting of th is note might be different from the original. Patient notes increased constipation. Having 1-2 stools daily but has to push hard to evacuate stool. This is causing protrusion of umbilical hernia. Hernia has been reducible. Continue Metamucil. Patient wishes to avoid a stool softener as this has interfered with keeping ischial wound dressing clean. Decrease Iron use to twice per week. Pseudophakia 05/06/2020 Hypoalbuminemia 12/12/2019 Leg swelling 12/12/2019 Venous hypertension of lower extremity, bilateral 11/15 Iron deficiency anemia, unspecified iron deficiency an emia type 09/12/2019 Last Assessment & Plan: Formatting of th is note might be different from the original. Recent labs normal. Last colonoscopy was in 2014, normal with recommended repeat in 2024. Patient continues to have a chronic left ischial wound with poor healing. Continued on ferrous sulfate 325mg every other day Pressure ulcer of ischium, left, stage IV 09/12/2019 Overview: Developed ulceration at being the floor for 3 days in 2018. Developed necrotizing fasciitis in 2017. Likely had partial sciatic nerve severed with surgery. Continued on wound cares since that time. 02/12/20-Seen at [facility] by Dr. Huggins and Patience Toussaint Patient would prefer wound rather than ulcer 04/28/20-Rafa John MD [facility] . Continued wound cares with [facility] Last Assessment & Plan: Ongoing wound cares with [facility], get ting regular communication from them. Home care to help with dressings. Patient's main goal is to have this healed. Dysesthesia 09/11/2019 Overview: Reports history of sciatic nerve injury during surgery in 2018. Records requested Last Assessment & Plan: Ongoing since 2018. Pulsating pain in left foot medially, pl simeon surface, under toes, and outer aspect of foot. Dermatitis 09/11/2019 Last Assessment & Plan: Formatting of th is note might be different from the original. Patient tends to have increase moisture with warm weather. Refill Nystatin cream and powder prn. Foot drop, left 09/11/2019 Overview: S/p debridement for Necrotizing Fascitis 2.5 years ago, since has had a left foot drop. Able to ambulate with foot support. Has ankle brace for longer walks. Last Assessment & Plan: Left ankle and foot brace is no longer f itting well. Notes calluses to foot. Referral to Orthotics Dx presumed Adjustment disorder with depressed mood 04/23/2019 Last Assessment & Plan: Formatting of th is note might be different from the original. Not interested in Behavioral Health at t his time. Notes that mood is stable currently. Atrial fibrillation, unspecified type 04/23/2019 Last Assessment & Plan: Formatting of is note might be different from the original. Recheck TSH. Continued on atenolol 25mg BID and warfa rin Anxiety 04/12/2019 Last Assessment & Plan: Formatting of th is note might be different from the original. Feels mood is stable at this time. Declines intervention by Behavioral Heal Left leg weakness 03/20/2019 Overview: Foot drop with decreased sensation to le ft Last Assessment & Plan: -Has hx of left sciatic nerve injury fro m surgery. Also has left drop foot. -Uses walkers (4 wheel and 2 wheel) to a mbulate. -Will have RN KODY call [facility] for phys ical therapy for patient. Lower extremity weakness 03/20/2019 Overview: Formatting of this note might be differe nt from the original. Last Assessment & Plan: -pt would benefit from 4 wheeled rolling walker for home use -will complete face to face paperwork Seizure 03/15/2019 Overview: Sees Dr. Barber at Epilepsy clinic. EEG on showed occasional left temporal epileptiform activities during sleep and occasional left temporal slowing during sleep and wakefulness. No seizures Last Assessment & Plan: Stable without seizure. On medications. Follow-up with neurology as scheduled. Microscopic hematuria 01/09/2019 Last Assessment & Plan: Formatting of th is note might be different from the original. Found on cath UA in ER 2 nights ago, may be traumatic. Home care to repeat UA with catheterizat ion in one month. Patient is considering changing to [facility]-will notify appropriate agency after patient makes decision. Injury of sciatic nerve 01/07/2019 Last Assessment & Plan: Formatting of is note might be different from the original. EMG done 03/09/20-Interpretation: This is an abnormal but limited study. T here is electrophysiologic evidence compatible with a severe left-sided sciatic neuropathy as clinical questioned. Because of anticoagulation therapy and body hab itus proximal lower limb muscles were no t evaluated with needle EMG. As such, a more proximal injury to the lumbosacral plexus rather than the sciatic nerve can not be excluded. There is no evidence of motor unit continuity to distal muscles innervated by the sciatic nerve. Physical therapy and OT thru home care. OT to assess need for new brace. Continue wound care of left ischial jenn on. Able to ambulate with left ankle brace, has left foot drop. Macular degeneration (senile) of retina 10/02/2018 Last Assessment & Plan: Formatting of th is note might be different from the original. Appointment with Retina Specialist at [facility] on 01/11/19. 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 Had re-eval by Dr. kim in Heme /onc who recommended lifetime anticoagulation Last Assessment & Plan: On lifetime anticoagulation. INR today. Discussed potentially home INR especially as weather gets bad. Mobility is difficult for her. [facility] pharmacy will reach out to INR nurse about that. Lymphedema of both lower extremities 10/29/2017 Overview: Involvement of LE extremities. No edema in upper extremities or face. Has air mattress for bed Has cushion for seating Use of flexitouch pumps daily and velcro wraps Last Assessment & Plan: Discussed wraps and continued cares. Wou nd limits ability to do pool to help with edema or to the waist compression. Continue to monitor skilled nursing current use of 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 014 Last Assessment & Plan: Formatting of th is note might be different from the original. Continue with Warfarin Vitamin D deficiency 11/23/2011 Last Assessment & Plan: Formatting of th is note might be different from the original. Recent Vitamin D was 56, normal calcium. Continued on Vitamin D 5000 units daily. Eczema 10/06/2011 Overview: Derm at [facility] Binge eating 07/10/2011 Last Assessment & Plan: Formatting of th is note might be different from the original. Plans to establish care with the Bariatr ic team at [facility] in [place]. Had appointment scheduled in October with Medical Staff Credentialing Coordinator but this was cancelled due to Covid. Patient will follow-up with clinic to in quire when they will reschedule her appointment. [facility] 01/21/2011 Overview: Formatting of this note is dif ferent from the original. EMERGENCY CARE PLAN Presenting Problem Signs and Symptoms Tr eatment Plan Questions or conerns during clinic hour s I will call the clinic directly Questions or conerns outside clinic gregorio rs I will call the 24 hour nurse line at [phone] Patient needs to schedule an appointmen t I will call the 24 hour scheduling team at [phone] or clinic directly Same day treatment I will call the clin ic first, nurse line if after hours, urgent care and express care if needed DX [id number] REPLACED WITH [id number] (10/22/2012) Dermatitis, stasis 08/12/2010 Myopia 07/15/2010 CARDIOVASCULAR SCREENING; LDL GOAL LESS THAN 130 08/26 CEFERINO on CPAP 09/05/2005 Overview: Severe; on CPAP Last Assessment & Plan: Orders for CPAP supplies placed as patie nt has not have tubes replaced in about 1 year. Really should be replaced about every 3 months. Will fax to [facility] medical. Essential hypertension, benign 07/30/2003 Last Assessment & Plan: Formatting of th is note might be different from the original. Recent labs with Cr of 0.56 and normal p otassium. Has a hx of mild microalbuminuria. Refilling Losartan 50mg daily, Atenolol 25mg twice a day Morbid obesity -- BMI 55-60 07/30/2003 Last Assessment & Plan: Formatting of is note might be different from the original. Continuing to work with weight managemen t. Resolved Problems Problem Noted Date Resolved Date Chronic osteomyelitis, pelvis, left 09/01/2021 05/2 01/2022 Pain 05/04/2021 10/09/2021 Need for prophylactic vaccination and inoculation against 10/09/2021 influenza Last Assessment & Plan: Formatting of th is note might be different from the original. High dose Flu vaccine given today. Iron deficiency anemia due to chronic blood loss 04/23/2019 09/12/2019 Last Assessment & Plan: Formatting of th is note is different from the original. Ferritin level was 92 in April. Was ad vised she may decrease Iron to every other day, or stop taking Iron Takes Ferrous Sulfate 325 mg every other day, and recommend continuing this. Hemoglobin Date Value Ref Range Status 07/19/2019 13.5 11.7 - 15.7 g/dL Final 07/12/2019 14.2 11.7 - 15.7 g/dL Final Altered mental status 03/15/2019 03/20/2019 Encounter for Medicare annual wellness exam 01/09/2019 02/06/2019 Last Assessment & Plan: Formatting of th is note might be different from the original. -mammogram and colonoscopy UTD -no further pap's due to age -consider shingles vaccine in the future ; would need to have done at a pharmacy Transient confusion 01/09/2019 04/23/2019 Last Assessment & Plan: Formatting of th is note might be different from the original. Cognition has improved to baseline and h as not experienced any further episodes of confusion since two weeks post-hospitalization. Patient has a Sleep medicine provider in [place], and will schedule an appointment with him to assess functioning of CPAP. Has appointment with Neurology tomorrow for further evaluation. Hypertension 01/07/2019 01/09/2019 Generalized weakness 01/07/2019 01/09/2019 Nuclear sclerosis of both eyes 10/02/2018 0 Cortical age-related cataract, both eyes 10/02/2018 05/06/2020 Adjustment reaction 11/07/2017 04/23/2019 Last Assessment & Plan: Formatting of th is note might be different from the original. -pt with significant stress and feeling more sad -had her talk with P today; they will set up follow up appointment Pressure injury of left buttock, stage 4 10/29/2017 10/09/2021 Overview: Pt with fall and prolonged time on the f ángel in 10/2017 with resultant necrotizing fasciitis. Pt spent almost a year in SNF, still has open wound. Last Assessment & Plan: -Hx of prolonged time on the floor in with development of necrotizing fasciitis. Has surgery and has sciatic nerve injury. Continues with wound cares. Has wound vac earlier this year and now discon tinued. Recent MRI of several months aga in at [facility], per [facility] notes no OM noted. Cellulitis of left lower extremity 10/29/201705/30 Physical deconditioning 10/29/2017 10/09/2021 Diarrhea 10/29/2017 05/30/2018 Infected wound 10/28/2017 01/09/2019 Necrotizing soft tissue infection 10/28/20172018 Overview: Overview: debridement 10/18/17 Rhabdomyolysis 10/19/2017 05/30/2018 Hip pain, right 01/08/2015 04/06/2015 Prediabetes 11/23/2011 04/23/2019 Overview: With weight loss this no longer appears to be an issue. Will resolve from problem list. Last Assessment & Plan: Recheck A1C today-normal. Lab Results Component Value Date A1C 5.2 04/23/2019 A1C 5.6 05/30/2018 A1C 5.2 01/03/2017 A1C 5.4 01/01/2016 A1C 5.4 12/30/2014 GERD (gastroesophageal reflux disease) 07/10/2011 0 12/05/2012 Cataract 07/15/2010 05/06/2020 Last Assessment & Plan: Formatting of th is note might be different from the original. Followed by Opthamology-considering fab ract surgery. Patient has appointment with Retina Spec michelle at [facility] on 01/11. 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 Cautioned patient she should not be drpete ing. iamPLANTAR FIBROMATOSIS 03/06/2006 10/06/2011 iamJOINT PAIN-ANKLE 03/06/2006 10/06/2011 Labyrinthitis 09/08/2004 09/05/2005 Overview: s/p canolith repositioning 07/21 Problem list name updated by automated p rocess. Provider to review Other lymphedema 11/04/2003 05/30/2018 Overview: Has been lymphedema clinic x2 Pulmonary embolism and infarction 11/20/20012017 Overview: Was on HRT at time PE. Has history of re current pe (second when subtherapeutic on coumadin about 2 months after first); however patient states hospital physician during that hospitalization told her she did not have second PE. Trying to obtai n records. Problem list name updated by airam ribeiro. Provider to review Encounters Date Type Specialty Care Team Description 06/01/2022 Anticoagulation Therapy Anticoagulation Fadumo Davies ersonal history of pulmonary embolism (Primary Dx); Visit A, RN skilled nursing curre nt use of 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; Atrial fibrilla tion, unspecified type (H) 05/31/2022 Orders Only Anticoagulation Yane Barraza MD 05/17/2022 Office Visit IM/Peds Yane Barraza Postmenopausal (Primary Dx); MD Bruce Closed displace d fracture of metatarsal bone of left foot with routine healing, unspecified metatarsal, subsequent encounter; Atrial fibrilla tion, unspecified type (H); Lymphedema of b oth lower extremities; 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; Essential hyper tension, benign 05/17/2022 Office Visit Pharm Haylie Gonzalez Morbid obesit y (H) (Primary Dx); Giuseppe Rojas, [facility] Constipation, u nspecified constipation type; Iron deficiency anemia, unspecified iron deficiency anemia type; Atrial fibrilla tion, unspecified type (H); Acute diastolic heart failure (H); Pressure ulcer of ischium, left, stage IV (H); Intermittent pa in; Lymphedema of b oth lower extremities; Screening for h yperlipidemia; 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; Seizure (H); Eczema, unspeci fied type; Takes dietary s upplements; Screening for o steoporosis; Vaccine licensed mental health counselor ing 05/17/2022 Anticoagulation Therapy Anticoagulation Monica Almaguer 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 embolism (Primary Dx); Visit A, RN termite treater helper curre nt use of 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; Atrial fibrilla tion, unspecified type (H) 05/17/2022 Orders Only Anticoagulation Yane Barraza MD 05/17/2022 Travel 04/29/2022 Anticoagulation Therapy Anticoagulation Irene Katz ersonal history of pulmonary embolism (Primary Dx); Visit CH[facility]LER Mota skilled nursing [facility] nt use of 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; Atrial fibrilla tion, unspecified type (H) 04/29/2022 Orders Only Anticoagulation Yane Barraza MD 04/14/2022 Orders Only Anticoagulation Yane Barraza MD 04/14/2022 Anticoagulation Therapy Anticoagulation Irene Wagner ersonal history of pulmonary embolism (Primary Dx); Visit CHANDLER Petersen termite treater helper [facility] use of 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; Atrial fibrilla tion, unspecified type (H) 04/08/2022 Refill Neurology Erlinda Barber MD Medication Re fill 04/08/2022 Telephone Neurology Erlinda Barber MD Refill Reques t (Resend refill ) 04/08/2022 Refill Pharm D Yane Barraza Medication Refi altagracia Barrera MD 04/07/2022 Refill Neurology Erlinda Barber MD Refill Reques t (Refused.) 04/04/2022 Refill Neurology Erlinda Barber MD Medication Re fill; Refill Request (LEVETIRACETAM 500MG TABLETS/refused ,concha mathias,ordered #1 80,3 refills on 02/25) 03/29/2022 Anticoagulation Therapy Anticoagulation Latia Huang E, 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 embolism (Primary Dx); [facility] use of 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; Atrial fibrilla tion, unspecified type (H) 03/29/2022 Orders Only Anticoagulation Yane Barraza MD 03/17/2022 Anticoagulation Therapy Anticoagulation Isum, Fadumo P ersonal history of pulmonary embolism (Primary Dx); Visit [facility] nt use of 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; Atrial fibrilla tion, unspecified type (H) 03/16/2022 Orders Only Yane Cobian MD from Last 3 Months Immunizations Name Administration Dates Next Due COVID-19 Vaccine 12+ (Pfizer 2021) 01/11/2022 COVID-19 Vaccine 12+ (Pfizer) 05/13/2021, 10/08/2020, 2020 COVID-19 Vaccine Bivalent Booster 12+ 05/17/2022 (Pfizer) FLU 6-35 months 04/19/2010 Influenza (High Dose) 3 valent 04/23/2019, 05/07/2018, 04/07, vaccine 04/25/2016, 04/21/2015, 05/02/2014, 04/29/2013, 04/21/2011 Influenza (IIV3) PF 04/26/2012, 04/19/2010, 04/06/2009, 05/05/2008, 05/17/2007, 05/04/2006, 05/13/2005, 05/27/2004, 05/08/2002 Influenza Vaccine 65+ (Fluzone HD) 05/17/2022, 05/13/2021, 1 Pneumo Conj 13-V (2010&after) 12/30/2014 Pneumococcal 23 valent 12/06/2011, 05/13/2005 TD (ADULT, 7+) 08/27/2004 TDAP Vaccine (Adacel) 12/30/2014 Td (Adult), Adsorbed 08/27/2004 Family History Medical History Relation Comments Glaucoma Brother 1 Macular Degeneration Brother 1 Gastrointestinal Disease Brother 2 irritable bowel Cancer Father Prostate Cancer Father Skin Cancer Father skin cancer unknown Cerebrovascular Disease Maternal Grandmother age 62 Hypertension Mother Thyroid Disease Mother Transient ischemic attack Mother Breast Cancer Paternal Aunt x3 C.A.D. Paternal Grandmother Hypertension Sister 2 Gastrointestinal Disease Sister 3 ciliac disease Colon Cancer No family hx of Relation Status Comments Brother 1 Alive x2 Brother 2 Daughter Alive Lyndsay born 1969 Father Maternal Grandmother Mother Paternal Aunt Paternal Grandmother Sister 1 Alive x3 Sister 2 Sister 3 Social History Tobacco Use Types Packs/Day Years Used Date Smoking Tobacco: Never Smokeless Tobacco: Never Tobacco Cessation: Counseling Given: Not Answered Alcohol Use Standard Drinks/Week Comments No 0 [...] or relatives? How often do you attend zoroastrian or More than 4 times per year 05/03/2021 buddhist services? Do you belong to any clubs or No 05/03/2021 organizations such as zoroastrian groups, unions, fraternal or athletic groups, or [...] place to sleep or slept in a half-way (including now)? Education Answer Date Recorded What is the highest level of school Bachelor's degree (e.g., BA, AB, 01/05/2019 you have completed or the highest BS) degree you have received? Sex Assigned at Date Recorded Female 12/24/2018 12:35 PM CDT COVID-19 Exposure Response Date Recorded In the last 10 days, have you been in contact with No / Unsu re 05/17/2022 12:50 PM CDT someone who was confirmed or suspected to have Coronavirus/COVID-19? Last Filed Vital Signs Vital Sign Reading Time Taken Comments Blood Pressure 120/72 05/17/2022 1:05 PM CDT Pulse 80 05/17/2022 1:05 PM CDT Temperature 36.7 ??C (98.1 ??F) 05/17/2022 1:05 PM CDT Respiratory Rate 16 05/17/2022 1:05 PM CDT Oxygen Saturation 97% 05/17/2022 1:05 PM CDT Inhaled Oxygen Concentration - - Weight 166.5 kg (367 lb 1.6 oz) 05/17/2022 1:05 PM CDT Height 170.2 cm (5' 7) 05/17/2022 1:05 PM CDT Body Mass Index 57.5 05/17/2022 1:05 PM CDT Plan of Treatment Upcoming Encounters Date Type Specialty Care Team Description 11/15/2022 Virtual Visit Pharm Haylie Gonzalez, [facility] [address] [facility] [place] [address] (Wo winter) 11/15/2022 Virtual Visit IM/Yane Mathias MD [address] [facility] [place] [address] (Wo witner) 03/03/2023 Virtual Visit Neurology Erlinda Barber MD [address] [facility] [address] [place] [address] (Wo rk) Health Maintenance Due Date Last Done Comments CT COLONOGRAPHY 1945 FIT-DNA (Cologuard) 1945 FLEX SIG 1945 ZOSTER IMMUNIZATION (1 of 01/05/1996 2) FIT 06/20/2015 06/20/2014 MEDICARE ANNUAL WELLNESS 01/10/2020 01/09/2019, 01/03/2017, VISIT 01/01/2016, Additional history exists ADVANCE CARE PLANNING 01/03/2022 01/03/2017, 08/11/2011 BMP 01/20/2023 01/20/2022, 12/17/2021, 10/01/2021, Additional history exists ANNUAL REVIEW OF HM ORDERS 05/17/2023 05/17/2022, , 12/26/2018 FALL RISK ASSESSMENT 05/17/2023 05/17/2022, 05/06/2021, 07/22/2019, Additional history exists MAMMO SCREENING 06/03/2023 06/03/2021, 12/26/2018, 01/05/2016, Additional history exists DTAP/TDAP/TD IMMUNIZATION 12/30/2024 12/30/2014, 08/27/2004 , (3 - Td or Tdap) 08/27/2004 COLONOSCOPY 01/13/2025 01/13/2015, 01/13/2015, 02/13/2004 COLORECTAL CANCER 01/13/2025 SCREENING LIPID 01/25/2025 01/25/2022, 09/25/2020, 01/09/2019, Additional history exists DEXA 12/14/2027 12/13/2012, 03/09/2009 Pneumococcal Vaccine: 65+ Completed 12/30/2014, 12/06/2011 , Years 05/13/2005 HEPATITIS C SCREENING Completed 01/01/2016 PHQ-2 (once per calendar Completed 09/07/2021, 03/26/2021, year) 07/22/2019, Additional history exists A1C Discontinued 10/01/2021, 04/23/2019, 05/30/2018, Additional history exists COVID-19 Vaccine Completed 05/17/2022, 01/11/2022, 05/13/2021, Additional history exists INFLUENZA VACCINE Completed 05/17/2022, 05/13/2021, 04/30/2020, Additional history exists IPV IMMUNIZATION Aged Out No longer eligi ble based on patient 's age to complete this topic MENINGITIS IMMUNIZATION Aged Out No longe r eligible based on patient 's age to complete this topic Medical Devices Implanted Type Area Global Regulatory Affairs Manager Device Shelf Model / Identifier Expiration Serial / Lot Date Eye Imp Iol [place] Pcl Tecnis Zcb00 17.5 Lens/Eye Left: ADVANCED 12/27/2021 ZCB00 17.5 / Implanted: Qty: 1 on 01/22/2019 by Bernabe Whitehead MD at [facility] Implant Eye MEDICAL OPT [id number] / Eye Imp Iol Kilo Pcl Tecnis Zcb00 17.0 Lens/Eye Right: ADVANCED 01/11/2022 ZCB00 17.0 / Implanted: Qty: 1 on 02/20/2019 by Bernabe Whitehead MD at [facility] Implant Eye MEDICAL OPT [id number] / Procedures Procedure Name Priority Date/Time Associated Diagnosis Comme nts INR (EXTERNAL Routine 05/31/2022 12:00 AM Results for this RESULT) ENTRY LEVEL BUYER procedure are i n the results section. INR (EXTERNAL Routine 05/17/2022 12:00 AM Results for this RESULT) CDT procedure are i n the results section. INR (EXTERNAL Routine 04/29/2022 12:00 AM Results for this RESULT) CDT procedure are i n the results section. INR (EXTERNAL Routine 04/14/2022 2:35 PM Results for this RESULT) CDT procedure are i n the results section. INR (EXTERNAL Routine 04/14/2022 12:00 AM Results for this RESULT) CDT procedure are i n the results section. INR (EXTERNAL Routine 03/29/2022 12:00 AM Results for this RESULT) CDT procedure are i n the results section. INR (EXTERNAL Routine 03/16/2022 12:00 AM Results for this RESULT) CDT procedure are i n the results section. from Last 3 Months Results INR (External Result) (05/31/2022 12:00 AM ENTRY LEVEL BUYER)Only the most recent of7 results within the time period is included. P athologist Signature INR HOME 2.6 2.000 - [facility] MONITORING 3.000 [facility] Specimen (Source) Anatomical Location Collection Method / Collectio n Time Received Time / Laterality Volume 05/31/2022 Narrative [facility] - 05/31/2022 6:4 1 PM ENTRY LEVEL BUYER Yane Barraza MD LAB - HIM EXTERNAL RESULT Performing Organization Address City/State/ZIP Code Phon e Number [facility] [address] [place] [address] from Last 3 Months Insurance Payer Benefit Plan / Subscriber ID Effective Phone Address T ype Group Dates MEDICARE MEDICARE [id number] 2010-Prese [phone] ATTN CLAI MS Medicare nt 40 [address] [place] [address] BCBS BCBS OF [place] [id number] 2017-Prese [phone] [address] [place] [address] Indemnity nt [address] [place] [address] Charlette Brush Personal/Family Self 1945 [address] (Home) [place] [phone] [address] (Work) Charlette Brush Personal/Family Self [phone] [place] [address] Charlette Brush Behavioral Self 1945 [id number]) [place] [address] Charlette Brush Medication Self 1945 [address] [facility] (Home) [place] [address] Advance Directives For more information, please contact: [phone] Latest Code Status on File Code Status Date Activated Date Inactivated Comments Full Code 03/17/2019 3:05 PM Question Answer Comments Code status determined by: Discussion with patient/legal dec ision maker Code Status History Code Status Date Activated Date Inactivated Comments Full Code 03/15/2019 8:49 PM 03/17/2019 3:05 PM Question Answer Comments Code status determined by: Discussion with patient/legal dec ision maker Full Code 01/08/2019 10:20 AM 01/22/2019 9:37 AM Question Answer Comments Code status determined by: Discussion with patient/legal dec ision maker Full Code 01/07/2019 7:10 PM 01/08/2019 10:20 AM Question Answer Comments Code status determined by: Discussion with patient/legal dec ision maker Full Code 10/25/2017 10:01 AM 01/07/2019 2:50 PM Care Teams Office Copy Selector Relationship Specialty Start Date End Date Yane Barraza MD PCP - General Internal Medicine 12/08/[address] [facility] [facility] [address] [place], [place] [id number] Chastity Montero MD Dermatology 09/23/14 MD Martha [address] [place] [address] [address] [place], [place] [phone] Johnnie Alcocer MD Surgeon General Surgery 03/23/17 [address] [place], [place] [phone] Mtm, Ea Complex 04/23/19 Svetlana Osman Pharmacist Pharmacotherapy 04/23/19 Era, [facility] [address] [place], [place] [id number] Haylie Cheung, Pharmacist Pharmacist 09/11/19 [facility] [address] [place] [phone] Jaiden Holcomb Assigned PCP 05/24/20 MD Jayesh [address] [place] [id number] Brook Sánchez MD Assigned Infectious 07/04/[address] [place] [address] Disease Provider [place], [place] [phone] Osmar Kidd MD Assigned Sleep Provider 09/26/21 [address] [place] [id number] Erlinda Barber MD Assigned Neuroscience 10/24/21 [address] [facility] Provider [address] [place], [place] [address] Gaye Patrick, RN Personal Advocate & 01/18/22 Liaison (PAL) Kenya Abernathy APRN Assigned Heart and 01/22/22 GRINDING MACHINE OPERATOR PORTABLE Vascular Provider [address] [place] [id number] Hayley German Assigned Surgical 02/12/22 Farrah, OD Provider [address] [facility] [place] [id number] Haylie Cheung, Assigned MTM Pharmacist 04/13/22 [facility] [address] [facility] [place] [id number]
--- OUTSIDE RECORDS SUMMARY | 2022-06-15 12:37 | XMS_ITS | Encounter Summary ---
:1945 Author Organization [facility] Address [address], [place] [address] Care Team Providers Name Role Phone Lucero Stevenson MD Primary Care Provider [phone] Reason for Visit Reason Comments Dental Hygiene no cc's Encounter Details Date Type Department Care Team Description 12/04/2018 [facility] (no Dentistry [facility] cc's) [address] [facility] [id number] [place] [phone] Social History Tobacco Use Types Packs/Day Years [...] Sign Reading Time Taken Comments Blood Pressure 133/80 12/04/2018 10:08 AM CDT Pulse 86 12/04/2018 10:08 AM CDT Temperature - - Respiratory Rate - - Oxygen Saturation - - Inhaled Oxygen Concentration - - Weight - - Height - - Body Mass Index - - documented in this encounter Patient Instructions Patient InstructionsAshlee Silveira [facility] - 12/04/2018 10:00 AM CDT Your next hygiene recall is due: 06/02/2019 YOUR PERSONAL DENTAL RISK REPORT Caries (Tooth Decay) Risk Periodontal (Gum) Disease Risk Oral Cancer Risk low mod high low mod high low elevated ^ ^ ^ Your Risk Level: LOW You currently have no risk factors for caries (tooth decay). How to Maintain Your Low Risk: Congratulations on your low risk for tooth decay. Making healthy life style choices including brushing twice a day; daily flossing; and healthy dietary choices should help you maintain this low risk. Your Risk Level: MODERATE Your Risk Factors: Have had a diagnosis of gum disease either with or without past treatment. Missing non third molar teeth. How to Reduce Your Risk: Return visit with the dental hygienist at 6 month intervals to assess periodontal condition and provide necessary treatment. Your Risk Level: LOW Your Risk Factors: Incidence of oral cancer increases with age. How to Maintain your Low Risk: Congratulations on your low risk for oral cancer. Making healthy life style choices such as not using tobacco and low to moderate alcohol use should help you maintain this low risk. Charlette, we look forward to seeing you at your next visit! Thank you for choosing [facility] documented in this encounter Progress Notes Zuly Archuleta DDS - 12/04/2018 10:00 AM CDT RECALL EXAM NOTE Charlette is a 73 y.o. female who presents for Dental Hygiene (no cc's) CHART REVIEW: The following items were reviewed and is correct to date: medical history, dental history, problem list, periodontal charting and radiographs SOFT TISSUE, HEAD AND NECK EXAM: Lips: Normal Tongue: Normal Palate: Normal Throat: Normal Floor of the mouth: Normal Mucosa: Normal Head and neck: Normal TMD EVALUATION: Palpation Pain: None Joint Sounds: None Pain with Range of Motion: None OCCLUSAL EXAMINATION: Unchanged COSMETIC CONCERNS: Patient's Perception: Acceptable Dentist's Perception: Acceptable TREATMENT REVIEW AND FOLLOW-UP: Discussed the dental findings, prognosis and treatment options with the patient. All questions were answered and informed consent was obtained. Recommended Recall Interval: Examination in 6 months : Recall prophy in 6 months. Planned Recall Interval: Examination in 6 months : Recall prophy in 6 months. Major food trap between # 17 and # 18, because of the angulation of # 17, adv to keep the area cleanwith flossing or water pick. Next Planned Visit: 6mo recall Completed dental procedures in this visit ??? PROPHYLAXIS-ADULT RECALL ??? PERIODIC ORAL EVALUATION ??? [id number] Zuly Archuleta DDS 12/04/2018, 10:49 AM --End of Note-- Ashlee Silveira RD - 12/04/2018 10:00 AM CDT HYGIENE PROPHY NOTE COLLABORATIVE AGREEMENT: The patient consents to have charting, radiographs and prophylaxis by the dental hygienist performed with the understanding that this care is not a substitute for an examination by a dentist. PRESENTATION: Oral Hygiene: Fair Plaque: Generalized, moderate interproximal Calculus: Localized, light mandibular anterior Stain: None Bleeding: Generalized light Gingival tissue: Normal Mucogingival concerns: Absent ACTIVITIES: Hand scale, Essential selective polishing and Flossed all contacts PATIENT EDUCATION: Caries risk, Periodontal risk and Oral cancer risk NEXT PLANNED HYGIENE VISIT: Hygiene Prophy with exam Completed dental procedures in this visit ??? PROPHYLAXIS-ADULT RECALL ??? PERIODIC ORAL EVALUATION ??? [id number] Ashlee Silveira 12/04/2018, 10:55 AM --End of Note-- documented in this encounter Plan of Treatment Not on filedocumented as of this encounter Procedures Procedure Name Priority Date/Time Associated Diagnosis Comme nts [id number] Routine 12/04/2018 10:00 AM Routine adult h ealth CDT maintenance PERIODIC ORAL Routine 12/04/2018 10:00 AM Routine adult health EVALUATION CDT maintenance PROPHYLAXIS-ADULT Routine 12/04/2018 10:00 AM Routine adult he alth RECALL CDT maintenance documented in this encounter Visit Diagnoses Diagnosis Routine adult health maintenance - Prima ry Routine general medical examination at a health care facility documented in this encounter Care Teams Solid Waste Manager Relationship Specialty Start Date End Date Lucero Stevenson MD PCP - General Internal Medicine 01/01/18 11/29/21 documented as of this encounter
--- OUTSIDE RECORDS SUMMARY | 2022-06-15 12:37 | XMS_ITS | Encounter Summary ---
:1945 Author Organization [facility] Address [address] [facility] [place] [address] Care Team Providers Name Role Phone Chastity Montero MD Unavailable [phone] Johnnie Alcocer MD Unavailable Mtm, Ea Complex Unavailable Unavailable Svtelana Osman [facility] Unavailable [phone] Haylie Cheung [facility] Unavailable [phone] Jaiden Holcomb MD Unavailable [phone] Brook Sánchez MD Unavailable Osmar Kidd MD Unavailable Erlinda Barber MD Unavailable Yane Barraza MD Primary Care Provider Gaye Patrick RN Unavailable Unavailable Kenya Abernathy APRN PROMOTIONS EXECUTIVE Unavailable [phone] Hayley German OD Unavailable [phone] Haylie Cheung [facility] Unavailable [phone] Encounter Details Date Type Department Care Team Description 05/17/2022 Orders Only [facility] Yane Barraza MD Anticoagulation Clin ic [address] [facility] [address] [place] [address] [place] [phone] [place] [address] (Wo rk) Social History Tobacco Use Types Packs/Day Years [...] or relatives? How often do you attend gnosticism or More than 4 times per year 05/03/2021 pentecostal services? Do you belong to any clubs or No 05/03/2021 organizations such as gnosticism groups, unions, fraternal or athletic groups, or [...] place to sleep or slept in a detention (including now)? Education Answer Date Recorded What [...] have Coronavirus/COVID-19? documented as of this encounter Plan of Treatment Upcoming Encounters Date Type Specialty Care Team Description 11/15/2022 Virtual Visit Pharm D Haylie Cheung, [facility] [address] [facility] [place] [address] (Wo winter) 11/15/2022 Virtual Visit IM/Peds Yane Barraza MD [address] [facility] [place] [address] (Wo winter) 03/03/2023 Virtual Visit Neurology Erlinda Barber MD [address] [facility] [address] [place], [place] [address] (Wo winter) documented as of this encounter Procedures Procedure Name Priority Date/Time Associated Diagnosis Comme nts INR (EXTERNAL Routine 05/17/2022 12:00 AM Results for this RESULT) CDT procedure are i n the results section. documented in this encounter Results INR (External Result) (05/17/2022 12:00 AM CDT) P athologist Signature INR HOME 2.6 2.000 - [facility] MONITORING 3.000 [facility] Specimen (Source) Anatomical Location Collection Method / Collectio n Time Received Time / Laterality Volume 05/17/2022 Narrative [facility] - 05/17/2022 9:2 8 AM CDT Yane Barraza MD LAB - HIM EXTERNAL RESULT Performing Organization Address City/State/ZIP Code Phon e Number [facility] [address] [place] [address] documented in this encounter Visit Diagnoses Not on filedocumented in this encounter Additional Health Concerns Assessment Noted Time PHQ-9 Depression Total Score: 4 04/12/2019 7:03 AM CDT documented as of this encounter Care Teams Research Associate Relationship Specialty Start Date End Date Yane Barraza MD PCP - General Internal Medicine 12/08/[address] [place] [address] Chastity Montero MD Dermatology 09/23/14 MD Martha [address] [place] [address] 98 [place], [place] [address] Johnnie Alcocer MD Surgeon General Surgery 03/23/[address] [place], [place] [phone] Mtm, Ea Complex 04/23/19 Svetlana Osman Pharmacist Pharmacotherapy 04/23/19 Era, [facility] [address] [place] [address] Haylie Cheung, Pharmacist Pharmacist 09/11/19 [facility] [address] [place] [address] Jaiden Holcomb Assigned PCP 05/24/20 MD Jayesh [address] [place] [address] Brook Sánchez MD Assigned Infectious 07/04/21 [address] [facility] [place] [address] Osmar Kidd MD Assigned Sleep Provider 09/26/21 [address] [place] [address] Erlinda Barber MD Assigned Neuroscience 10/24/21 [address] [facility] Provider [address] [place], [place] [address] Gaye Patrick, RN Personal Advocate & 01/18/22 Liaison (PAL) Kenya Abernathy APRN Assigned Heart and 01/22/22 PROMOTIONS EXECUTIVE Vascular Provider [address] [place] [address] Hayley German Assigned Surgical 02/12/22 KENNETH Yan Provider [address] [facility] [place] [address] Haylie Cheung, Assigned MTM Pharmacist 04/13/22 [facility] [address] [facility] [place] [address] documented as of this encounter
--- OUTSIDE RECORDS SUMMARY | 2022-06-15 12:37 | XMS_ITS | Encounter Summary ---
:1945 Author Organization [facility] Address [address] [place] [address] Care Team Providers Name Role Phone Lucero Stevenson MD Primary Care Provider [phone] Encounter Details Date Type Department Care Team Description 01/31/2018 Hospital Encounter [facility] Ingrid Groves MD Transportation [address] [facility] [address] [address] [phone] Social History Tobacco Use Types Packs/Day Years [...] on file documented as of this encounter Medications at Time of Discharge Medication Sig Dispensed Refills Start Date End Date cetirizine (ZYRTEC) 10 MG Take 10 mg by mouth 0 0 11/14/2017 tablet two times a day. warfarin (COUMADIN) 10 MG Take 10 mg by mouth 0 0 08/23/2017 tablet daily. atenolol (TENORMIN) 25 MG Take 25 mg by mouth 0 0 2016 12/03/2021 tablet two times a day. losartan (COZAAR) 100 MG Take 100 mg by 0 017 11/30/2021 tablet mouth. documented as of this encounter Plan of Treatment Not on filedocumented as of this encounter Visit Diagnoses Not on filedocumented in this encounter Care Teams Sinker Winder Relationship Specialty Start Date End Date Lucero Stevenson MD PCP - General Internal Medicine 01/01/18 11/29/21 documented as of this encounter
--- OUTSIDE RECORDS SUMMARY | 2022-06-15 12:37 | XMS_ITS | Encounter Summary ---
:1945 Author Organization [facility] Address [address] [place] [id number] Care Team Providers Name Role Phone Chastity Montero MD Unavailable [phone] Johnnie Alcocer MD Unavailable Mtm, Ea Complex Unavailable Unavailable Svetlana Osman [facility] Unavailable [phone] Haylie Cheung [facility] Unavailable [phone] Jaiden Holcomb MD Unavailable Brook Sánchez MD Unavailable Osmar Kidd MD Unavailable Erlinda Barber MD Unavailable Yaen Barraza MD Primary Care Provider Gaye Patrick RN Unavailable Unavailable Kenya Abernathy APRN [employer] Unavailable [phone] Hayley German OD Unavailable [phone] Haylie Cheung [facility] Unavailable [phone] Encounter Details Date Type Department Care Team Description 05/17/2022 Travel Social History Tobacco Use Types Packs/Day Years [...] or relatives? How often do you attend adventism or More than 4 times per year 05/03/2021 sabianism services? Do you belong to any clubs or No 05/03/2021 organizations such as adventism groups, unions, fraternal or athletic groups, or [...] place to sleep or slept in a jail (including now)? Education Answer Date Recorded What [...] Visit Pharm D Haylie Cheung, [facility] [address] [facility] [place] [id number] (Lena max) 11/15/2022 Virtual Visit IM/Peds Yane Barraza MD [email or web address] [place] [phone] (Lena max) 03/03/2023 Virtual Visit Neurology Erlinda Barber MD [address] [facility] [address] [place] [address] (Wo winter) documented as of this encounter Visit Diagnoses Not on filedocumented in this encounter Additional Health Concerns Assessment Noted Time PHQ-9 Depression Total Score: 4 04/12/2019 7:03 AM CDT documented as of this encounter Care Teams Family Program Specialist Relationship Specialty Start Date End Date Yane Barraza MD PCP - General Internal Medicine 12/08/21 [facility] [id number] Chastity Montero MD Dermatology 09/23/14 MD Martha [address] [facility] [address] [place], [place] [address] Johnnie Alcocer MD Surgeon General Surgery 03/23/[address] [place], [place] [address] Mtm, Ea Complex 04/23/19 Svetlana Osman Pharmacist Pharmacotherapy 04/23/19 Era, [facility] [address] [place], [place] [id number] Haylie Cheung, Pharmacist Pharmacist 09/11/19 [facility] [address] [facility] [place] [address] Jaiden Holcomb Assigned PCP 05/24/20 MD Jayesh [address] [place], [place] [id number] Brook Sánchez MD Assigned Infectious 07/04/[address] [place] [address] Disease Provider [place], [place] [id number] Osmar Kidd MD Assigned Sleep Provider 09/26/21 [address] [place] [address] Erlinda Barber MD Assigned Neuroscience 10/24/21 [address] [facility] Provider [address] [place], [place] [address] Gaye Patrick, RN Personal Advocate & 01/18/22 Liaison (PAL) Kenya Abernathy APRN Assigned Heart and 01/22/[address] Vascular Provider [address] [place] [address] Hayley German Assigned Surgical 02/12/22 Farrah, OD Provider [address] [place], [place] [id number] Haylie Cheung, Assigned MTM Pharmacist 04/13/22 [facility] [address] [facility] [address] [place], [place] [id number] documented as of this encounter
--- OUTSIDE RECORDS SUMMARY | 2022-06-15 12:37 | XMS_ITS | Encounter Summary ---
:1945 Author Organization [employer] Address [address] [place] [address] Care Team Providers Name Role Phone Lucero Stevenson MD Primary Care Provider [phone] Reason for Referral Procedure/Equipment (Routine) - Incomplete Specialty Diagnoses / Procedures Referred By Contact Refer red To Contact Procedures Ingrid Groves MD XR Portable Chest 1 View [address] [place] [address] Referral ID Status Reason Start Date Expiration Date Visits V isits Requested Authorized [id number] Incomplete 01/01/2018 04/02/2019 1 1 Reason for Visit Reason Comments Fever Wound Check Encounter Details Date Type Department Care Team Description 01/01/2018 Emergency [facility] Emergency Dept Ingrid Groves MD Fever, unspecified fever cause (Primary Dx); [facility] [address] Wound of buttock, unspecified laterality , initial encounter; [place] [address] [place] [address] Fu catheter status [phone] (Wo rk) Social History Tobacco Use Types [...] Sign Reading Time Taken Comments Blood Pressure 115/71 01/01/2018 7:00 PM CDT Pulse 97 01/01/2018 7:00 PM CDT Temperature 37.2 ??C (99 ??F) 01/01/2018 2:48 PM CDT Respiratory Rate 23 01/01/2018 7:00 PM CDT Oxygen Saturation 100% 01/01/2018 7:00 PM CDT Inhaled Oxygen Concentration - - Weight - - Height - - Body Mass Index - - documented in this encounter Discharge Instructions Discharge InstructionsSuJes bolivar MD - 01/01/2018 7:27 PM CDT Thank you for choosing [facility] for your care. It was a pleasure taking care of you today [facility] Emergency Department. Please take antibiotics as prescribed for your urinary tract infection. Wound cultures are pending. Return to the Emergency Department immediately if you develop chest pain, shortness of breath, weakness, numbness, confusion, lightheadedness, fever, blood loss, inability to eat or drink, or with any other new or concerning symptoms. Return to the emergency department if your symptoms worsen. Please follow up with your primary care doctor in the next 1-2 days regarding your visit to the Emergency Room. If you do not have a doctor, you can make an appointment at a [facility] clinic by calling the appointment center at [phone]. Office hours are 7am to 9pm seven days a week. Thank you for choosing [facility] for your care. It was a pleasure taking care of you today [facility] Emergency Department. Please take antibiotics as prescribed for urinary tract infection. We will provide a cup for stool sample to check for C. Dif, it can be dropped off here at the hospital. Wound cultures are pending. Return to the Emergency Department immediately if you develop chest pain, shortness of breath, weakness, numbness, confusion, lightheadedness, fever, blood loss, inability to eat or drink, or with any other new or concerning symptoms. Return to the emergency department if your symptoms worsen. Please follow up with your primary care doctor in the next 1-2 days regarding your visit to the Emergency Room. If you do not have a doctor, you can make an appointment at a [facility] by calling the appointment center at [phone]. Office hours are 7am to 9pm seven days a week. documented in this encounter Medications at Time of Discharge Medication Sig Dispensed Refills Start Date End Date cetirizine (ZYRTEC) 10 MG Take 10 mg by 0 018 tablet mouth two times a day. warfarin (COUMADIN) 10 MG Take 10 mg by 0 018 tablet mouth daily. ciprofloxacin (CIPRO) 500 Take 1 Tab by 14 Tab 0 018 01/08/2018 MG tablet mouth two times a day for 7 days. atenolol (TENORMIN) 25 MG Take 25 mg by 0 01/03/ 016 12/03/2021 tablet mouth two times a day. losartan (COZAAR) 100 MG Take 100 mg by 0 01/03/ 017 11/30/2021 tablet mouth. nitrofurantoin monohydrate Take 1 Cap by 14 Cap 0 201701/03/2018 macrocrystal (MACROBID) 100 mouth two times a MG capsule day for 7 days. documented as of this encounter Progress Notes Abilio Haider, PharmD - 01/01/2018 8:52 PM CDT BCxs NGTD Abilio Haider PharmD - 01/01/2018 8:52 PM CDT >100 K staph aureus in the urine, sent home on ciprofloxacin 500 mg BID x 7 days, Will follow up speciation and sensitivities Isai Khan PharmD - 01/01/2018 8:52 PM CDT >100k staph aureus in the urine. Though not reported, per discussion with micro lab, the susceptibility for ciprofloxacin was <0.25 mcg, which is susceptible. No change in abx indicated at this time. Janie Palumbo PharmD - 01/01/2018 8:52 PM CDT Swab of sacral region grew pseudomonas. Patient discharged on cipro 500mg BID x7 days starting 01/01/18. Patient was hospitalized at [facility] for necrotizing skin infection 10/28/17; at that time wounds weredebrided and patient completed a course of antibiotics (vanco/meropenem/clinda --> cipro/doxycycli ne/metronidazole on discharge) for klebsiella, actinomyces and bacteroides. Per discussion with physician who saw patient 01/01/18, the wound was covered in stool and foul smelling with some green drainage but no signs of erythema and per family the wound looked better than it had been. The providers were not overly concerned for wound infection. Given patient weight of 195kg and culture positive for pseudomonas, cipro 750mg BID would be more appropriate dose. The usual duration of antimicrobial therapy for pseudomonas skin and soft tissue infection is 10 to 14 days; however, shorter courses may be acceptable if the clinical signs and symptoms of infection have resolved. Since there was initially no concern for infection, 7 days may be acceptable. Given complicated history, would recommend close follow-up with a healthcare provider. In the morning, please follow up with patient/[facility] to alert them of positive wound culture and to see how patient is doing. Could consider increasing dose and duration if clinically appropriate. documented in this encounter ED Notes Elizabeth Esparza RN - 01/01/2018 8:51 PM CDT Report given to Anna ARTEAGA at patient's TCU. Elizabeth Esparza RN - 01/01/2018 8:45 PM CDT [facility] ED Nursing Discharge Note Vital Signs: BP: 115/71 Temp: 99 ??F (37.2 ??C)Temp src: Oral Pulse: 97 Resp: 23 SpO2: 100 % Admission Date/Time: 01/01/2018 2:40 PM Attending MD: Ingrid Groves MD Patient discharged: a Transitional Care Unit . Patient accompanied by: medic. Transported by: Bed Valuables were taken home by patient: Yes Work/School Slip given: No Discharge instructions given and explained to patient: Yes Discharge prescriptions given and explained to patient: Yes: New Prescriptions CIPROFLOXACIN (CIPRO) 500 MG TABLET Take 1 Tab by mouth two times a day for 7 days. NITROFURANTOIN MONOHYDRATE MACROCRYSTAL (MACROBID) 100 MG CAPSULE Take 1 Cap by mouth two times a day for 7 days. Modified Medications No medications on file Patient verbalized understanding. Yes Patient level of pain on discharge: Patient appears comfortable upon discharge. Patients condition on discharge related to chief complaint and treatment in ED: Patient verbalized understanding of discharge instructions. Encouraged to follow up and take medication as prescribed. ---End of Report--- Elizabeth Esparza RN - 01/01/2018 7:24 PM CDT Report received from Leach Bruce RN. Luis Angel Cox RN - 01/01/2018 5:30 PM CDT Pt incont of stool x2 and was cleaned and turned first to her left side and is now laying flat sinceplacing the fu. Stool sample was not obtained due to throwing the the chucks but will attempt on the next cleaning. Also the Pt wet dry drsg was changed x2 as well. The wound was noted to have cleardrainage and minimal redness noted proximal area around wound. Ingrid Groves MD - 01/01/2018 4:06 PM CDT [facility] Emergency Department Attending Supervision Note I performed the yancey elements of history and exam, and agree with resident's findings and plan of care as discussed with Jes Lawson. I have reviewed and agreed with the PMH, FH, SOC, ROS. Please see today's note by resident physician. 72 yo F with hx of back wounds from previous falls, here today for fevers and rigors. This is improved. Denies cough. Fu in place, urine appears cloudy. Denies cough or SOB. Report low grade fever and living facility, none here. Has had diarrhea, non bloody. NAD Looks well Large wound to left upper leg/buttock, wound edges look well, no erythema, looks quite well UA positive for UTI, fu switched and will treat for UTI Labs overall look quite well CXR negative for infection Wound with no obvious infection, and per sister present looks much better then has, so do no suspectinfection of this at this time Will send home with cup for c diff testing given her diarrhea, however, unable to get sample here Close follow up, return to the ER if worsening Assessment: UTI Fu change Close follow up Author: Ingrid Groves MD Jes Lawson MD - 01/01/2018 3:35 PM CDT [facility] Emergency Department Visit Note Chief Complaint: Fever and Wound Check History of Present Illness HPI: Charlette Brush is a 72 y.o. old female with history of extensive wounds in her gluteal area from a fall on October 15 in which she had a wound develop over three days and three nights that she was down onthe toilet. There was concern at the time for necrotizing fasciitis and she had multiple procedures to clean her out the wound. She has been living in an assisted care facility ever since. She has daily wound cares. She has been having diarrhea that sometimes covers the wound. Today, she presents emergency department because she had fevers and felt chilly for about half an hour at her care facility. So she was sent here. Attempted to call the care facility for times but at no point was staff able todescribe the symptoms that she had been having at the time. Allergies: Cephalexin; Penicillins; Lanolin; Lisinopril; Neomycin; and Mupirocin There is no problem list on file for this patient. Social History Social History ??? Marital status: Single Spouse name: N/A ??? Number of children: N/A ??? Years of education: N/A Social History Main Topics ??? Smoking status: Never Smoker ??? Smokeless tobacco: Never Used ??? Alcohol use No ??? Drug use: No ??? Sexual activity: Not on file Other Topics Concern ??? Not on file Social History Narrative ROS : 10 point ROS performed - All other systems negative Physical Exam Filed Vitals: 01/01/18 1815 01/01/18 1830 01/01/18 1845 01/01/18 1900 BP: 128/63 126/71 125/62 115/71 Pulse: (!) 102 94 (!) 105 97 Resp: 23 25 22 23 Temp: TempSrc: SpO2: 96% 98% 100% Physical Exam Constitutional: No distress. Lying in bed. Obese. Head: Atraumatic. Normocephalic. Eyes: Normal pupils . 4 mm, equal, round, reactive to light Neck: Neck supple. No cervical lymphadenopathy. Cardiovascular: Irregularly irregular. Radial pulses are normal and symmetric bilaterally. Pulmonary/Chest: Non-labored respirations. Lungs clear to auscultation bilaterally with no crackles or wheezes. Abdominal: Soft. Completely nontender to light and deep palpation in all four quadrants and in the epigastric area. No palpable masses. Nondistended. Back: Long (8-9 inch) laceration int the buttock area that is packed with dressing. There is no surrounding erythema. The wound is linear and there is some godwin/brownish discharge inside. Musculoskeletal: No edema. Neurological: A&Ox3. Moving all four extremities spontaneously. Skin: Skin is warm and dry. No diaphoresis Medical Decision Making, ED Course & Disposition Charlette Brush is a 72 y.o. old female with a large gluteal wound and a half hour history of fevers.On presentation to the emergency department, her vital signs are not concerning for sepsis. Her backis thoroughly examined. Urinalysis, chest x-ray, and labs are obtained. In the emergency department,she is afebrile. Differential includes wound infection, urinary tract infection, pneumonia, or othersource of infection. Most likely source is her urinary tract infection, with positive urinalysis. The patient is allergic to cephalosporin so will be discharged with the ciprofloxacin. With regard to her wound, wound cultures obtained. It is also possible the patient has C. Difficile with her loose stool. However, she is monitored in the emergency department, she does not have any further stools so sample was not obtained. Ordered an outpatient C. Difficile sample. Discussed this patient's return with nursing inject the care facility and they said that she is welcome to return. External transport is ordered but the S stretcher. Patient is discharged to home in stable condition with wound culturepending. ED Course Comment Time Rolled patient. Loose stool over wound. Wound cultured, aerobic and anaerobic cultures ordered. Tried to contact patient's nurse at [facility], no response. 01/01 1623 Diagnosis 1. Fever, unspecified fever cause Jes Lawson M.D. Emergency Medicine Resident, PGY-2 01/01/2018 7:52 PM Luis Angel Cox RN - 01/01/2018 3:30 PM CDT Received report on Pt from Becky Barrera RN. Second RN attempting to start the Pt IV at present. Amparo Mejias RN - 01/01/2018 3:23 PM CDT Fu in placed draining dark urine. Turned to right with wedge under hip. Wound not visualized. Elastic stocking in place Trauma attempting IV start documented in this encounter Plan of Treatment Not on filedocumented as of this encounter Procedures Procedure Name Priority Date/Time Associated Comments Diagnosis XR PORTABLE CHEST 1 STAT 01/01/2018 5:44 PM Re sults for this VIEW CDT procedure are i n the results section. ADD ON LAB STAT 01/01/2018 5:21 PM Results f or this ORDERS(SPECIMEN IN CDT procedure are in LAB) the results section. URINE CULTURE Routine 01/01/2018 5:21 PM Results for this CDT procedure are i n the results section. UA WITH MICROSCOPIC STAT 01/01/2018 5:21 PM Re sults for this CDT procedure are i n the results section. ECG 12-LEAD ROUTINE STAT 01/01/2018 4:37 PM Re sults for this CDT procedure are i n the results section. BLOOD CULTURE SITE 2 Routine 01/01/2018 4:33 PM R esults for this CDT procedure are i n the results section. AEROBIC CULTURE Routine 01/01/2018 4:21 PM Result s for this CDT procedure are i n the results section. LACTATE, WHOLE BLOOD STAT 01/01/2018 3:40 PM R esults for this CDT procedure are i n the results section. BLOOD CULTURE Routine 01/01/2018 3:40 PM Results for this CDT procedure are i n the results section. COAG HOLD (BLUE TUBE) Routine 01/01/2018 3:40 PM Results for this CDT procedure are i n the results section. BASIC METABOLIC PANEL STAT 01/01/2018 3:40 PM Results for this CDT procedure are i n the results section. COMPLETE BLOOD STAT 01/01/2018 3:40 PM Results for this COUNT-NO DIFF CDT procedure are in the results section. ANAEROBIC CULTURE STAT 01/01/2018 2:21 PM Resu lts for this CDT procedure are i n the results section. documented in this encounter Results XR Portable Chest 1 View (01/01/2018 5:44 PM CDT) Anatomical Region Laterality Modality Chest, Lung Computed Radiography Specimen (Source) Anatomical Collection Method Collection Time Re ceived Time Location / / Volume Laterality 01/01/2018 5:44 PM CDT Narrative 01/01/2018 5:[address] [facility] XR PORTABLE CHEST 1 VIEW 01/01/2018 5:44 PM INDICATION: Undifferentiated fever COMPARISON: None. FINDINGS: Negative chest. Both lungs wai ar. Procedure Note Omi Epperson MD - 01/01/2018Form atting of this note might be different from the original. [facility] XR PORTABLE CHEST 1 VIEW 01/01/2018 5:44 PM INDICATION: Undifferentiated fever COMPARISON: None. FINDINGS: Negative chest. Both lungs wai ar. Ingrid Groves MD RAD PORTABLE Urine Culture (01/01/2018 5:21 PM CDT) Component Value Ref Test Analysis Performed At [facility] Range Method Time Signature Specimen Urine [facility] Description LABORATORIES Special Unspecified [facility] Requests [facility] Culture > 100,000 col/ml [facility] Culture Staphylococcus [facility] aureus LABORATORIES Report Status 01/03/2018 [facility] Final LABORATORIES Specimen Anatomical Collection Method Collection Time Receive d Time (Source) Location / / Volume Laterality Urine: 01/01/2018 5:21 PM 8 7:27 CDT PM CDT Organism Antibiotic Method Susceptibility Staphylococcus aureus Clindamycin RH LOW >=4: Resis tant Comment: Resistant Staphylococcus aureus Erythromycin RH LOW >=8: Resis tant Comment: Resistant Susceptible implies suscepti bility to Azithromycin, Clarithromycin and Dirithrom ycin Staphylococcus aureus Linezolid RH LOW 2: SUSCEPT IBLE Comment: Susceptible Staphylococcus aureus Nitrofurantoin RH LOW <=16: SUSC EPTIBLE Comment: Susceptible Limited to use in lower urin joe tract infections. Do not use in patients with Creatin ine Clearance less than 60 ml/min. Staphylococcus aureus Oxacillin RH LOW <=0.25: MCGARRY SCEPTIBLE Comment: Susceptible Predicts activity of Methicillin,Nafcillin,Cloxac illin,Dicloxacillin,cephalospor ins,beta-lactam inhibitor co mbinations and Carbapenems. Staphylococcus aureus Trimeth/Sulfa RH LOW <=10: SUSC EPTIBLE Comment: Susceptible Staphylococcus aureus Tetracycline RH LOW <=1: SUSCE PTIBLE Comment: Susceptible Susceptible implies suscepti bility to Doxycycline and Minocycline Staphylococcus aureus Vancomycin RH LOW <=0.5: SAMMY CEPTIBLE Comment: Susceptible Ingrid Groves MD LAB_1 Performing Organization Address City/State/ZIP Code Phon e Number [facility] [phone] Add On Lab Orders(Specimen In Lab) (01/01/2018 5:21 PM CDT) [facility] CQuotient Method Time Signature Add On Test Additional [facility] Ordered by Specimen Anatomical Collection Method Collection Time Receive d Time (Source) Location / / Volume Laterality 01/01/2018 5:21 PM 8 7:26 CDT PM CDT [facility] - 01/01/2018 7:27 PM CD T Performed at [facility] , [address] [place] [address] Ingrid Groves MD LAB_1 Performing Organization Address [facility] Phon e Number [address] [address], [facility] (ABNORMAL) UA AND MICROSCOPIC (01/01/2018 5:21 PM CDT) [facility] Method Time Signature Urine Color Light Yellow [facility] Urine Clarity Cloudy [facility] Specific 1.003 (L) 1.005 - [facility] [place],Ur 1.030 HOSPITAL pH, Urine 7.0 4.5 - 8.0 [facility] Protein, Urine Negative NEG mg/dl [facility] Glucose, Urine Negative NEG mg/dl [facility] Ketones, Urine Negative NEG mg/dl [facility] Urobil, Urine <2.0 <2.0 [facility] mg/dl [facility] Bilirubin, Negative NEG [facility] Urine [facility] Blood, Urine Small (A) NEG [facility] Nitrite, Urine Negative NEG [facility] Leukocyte Large (A) NEG [facility] Est., Ur HOSPITAL RBC'S 3 0 - 3 [facility] WBC'S 155 (H) 0 - 5 [facility] WBC Clumps Present (A) NEG [facility] Bact Occ [facility] Specimen Anatomical Collection Method Collection Time Receive d Time (Source) Location / / Volume Laterality Urine,straight 01/01/2018 5:21 PM 018 5:30 cath/new fu CDT PM CDT [facility] - 01/01/2018 5:42 PM CD T Performed at [facility] , [address] [place] [address] Ingrid Groves MD LAB_1 Performing Organization Address City/[facility]/ZIP [facility] Phon e Number [address] [address] [place] [address], [facility] [phone] ECG 12-Lead STAT (01/01/2018 4:37 PM CDT) P athologist Signature Ventricular Rate 100 BPM [facility] Atrial Rate 104 BPM [facility] QRS Duration 88 ms [facility] QT 300 ms [facility] QTc 387 ms [facility] R [place] 50 degrees [facility] T [place] 38 degrees [facility] Specimen (Source) Anatomical Collection Method Collection Time Re ceived Time Location / / Volume Laterality 01/01/2018 4:37 PM CDT Narrative [facility] - 2018 2:29 PM CDT Poor data quality, interpretation may be adversely affected Atrial fibrillation Abnormal ECG No previous ECGs available Confirmed by MD ANDRE JOSEPH A ([id number]) on 2018 2:29:39 PM Procedure Note Shiv Andre MD - 2018Forma tting of this note might be different from the original. Poor data quality, interpretation ma y be adversely affected Atrial fibrillation Abnormal ECG No previous ECGs available Confirmed by MD ANDRE JOSEPH A ([id number]) on 2018 2:29:39 PM Ingrid Groves MD EKG Performing Organization Address City/[facility]/ZIP Code Phon e Number [facility] Blood Culture Site 2 (01/01/2018 4:33 PM CDT) Component Value Ref Test Analysis Performed At [place] Range Method Time Signature Specimen Blood [facility] Description Venipuncture or Line Start L ABORATORIES Special Unspecified [facility] Requests [facility] Culture No Growth After [facility] 6 Days LABORATORIES Report Status 01/07/2018 [facility] Final [facility]IES Specimen Anatomical Collection Method Collection Time Receive d Time (Source) Location / / Volume Laterality Blood specimen 01/01/2018 4:33 PM 018 4:40 (specimen) CDT PM CDT (BLOOD:) Ingrid Groves MD LAB_1 Performing Organization Address City/State/ZIP Code Phon e Number [facility] [phone] Aerobic Culture (01/01/2018 4:21 PM CDT) Component Value Ref Test Analysis Performed At [place] [facility] Method Time Signature Specimen ESwab [facility] Description [place] LAB[facility]IES Special Unspecified [facility] Gram Smear Rare [facility] PMNs Seen LAB[facility]IES Gram Smear No Organisms [facility] Seen [facility] Culture Rare [facility] Culture Pseudomonas [facility] aeruginosa [facility] Culture Rare [facility] Enteric [place] [facility] Report Status 01/05/2018 [facility] Final LABORATORIES Specimen Anatomical Collection Method Collection Time Receive d Time (Source) Location / / Volume Laterality SWAB / Unknown 01/01/2018 4:21 PM 018 4:36 CDT PM CDT Organism Antibiotic Method Susceptibility Pseudomonas aeruginosa Amikacin RH LOW 4: SUSCEP TIBLE Comment: Susceptible Pseudomonas aeruginosa Ceftazidime RH LOW 4: SUSCEP TIBLE Comment: Susceptible Pseudomonas aeruginosa Ciprofloxacin RH LOW <=0.25: S USCEPTIBLE Comment: Susceptible Pseudomonas aeruginosa Levofloxacin RH LOW 1: SUSCEP TIBLE Comment: Susceptible Pseudomonas aeruginosa Piper/tazobactam RH LOW 8 Suscep tible: SUSCEPTIBLE Pseudomonas aeruginosa Tobramycin RH LOW <=1: SUSC EPTIBLE Comment: Susceptible Pseudomonas aeruginosa Cefepime RH LOW 8: SUSCEP TIBLE Comment: Susceptible Pseudomonas aeruginosa Meropenem RH [place] Susceptib le: SUSCEPTIBLE Pseudomonas aeruginosa Imipenem RH [place] Susceptib le: SUSCEPTIBLE Ingrid Groves MD LAB_1 Performing Organization Address City/[facility]/ZIP [facility] Phon e Number [facility] [phone] COAG HOLD (BLUE TUBE) (01/01/2018 3:40 PM CDT) athologist Signature Coag Hold Held in [facility] for 8 hours Specimen Anatomical Collection Method Collection Time Receive d Time (Source) Location / / Volume Laterality 01/01/2018 3:40 PM 8 3:[address] [facility] - 01/01/2018 3:53 PM CD T Performed at [facility] , [address] [place] [address] Ingrid Groves MD LAB_1 Performing Organization Address [facility] Phon e Number [address] [address], [facility] [phone] Blood Culture Site 1 (01/01/2018 3:40 PM CDT) Component Value Ref Test Analysis Performed At [facility] gist Range Method Time Signature Specimen Blood [facility] Description Venipuncture or Line Start L ABORATORIES Special Unspecified [facility] Request[facility] Culture No Growth After [facility] 6 Days LABORATORIES Report Status 01/07/2018 [facility] Final [facility] Specimen Anatomical Collection Method Collection Time Receive d Time (Source) Location / / Volume Laterality Blood specimen 01/01/2018 3:40 PM 018 3:51 (specimen) CDT PM CDT (BLOOD:) Ingrid Groves MD LAB_1 Performing Organization Address City/State/ZIP Code Phon e Number [facility] [phone] Lactate, Whole Blood (01/01/2018 3:40 PM CDT) P athologist Signature Whole Blood 0.9 0.5 - 2.0 [facility] Lact[facility] mmol/L [facility] Comment: Reference range for healthy individuals when sepsis is not suspected is 0.5-2.2 mmol/ L Specimen Anatomical Collection Method Collection Time Receive d Time (Source) Location / / Volume Laterality 01/01/2018 3:40 PM 8 3:48 CDT PM CDT [facility] - 01/01/2018 4:02 PM CD T Performed at [facility] , [address] [place] [address] Ingrid Groves MD LAB_1 Performing Organization Address City/[facility]/ZIP [facility] [place] [address] (ABNORMAL) Basic Metabolic Panel (01/01/2018 3:40 PM CDT) Analysis Performed At Patho logist Time Signature Sodium 132 (L) 136 - 145 [facility] mmol/L [facility] Potassium 4.1 3.5 - 5.1 [facility] mmol/L [facility] Chloride 99 98 - 109 [facility] mmol/L [facility] CO2 26 20 - 29 [facility] mmol/L [facility] Anion Gap 7 7 - 16 [facility] (calc.) mmol/L [facility] Glucose 120 70 - 180 [facility] mg/dl [facility] Calcium 8.9 8.4 - 10.4 [facility] mg/dl [facility] BUN 12 7 - 26 [facility] mg/dl [facility] Creatinine 0.51 (L) 0.55 - [facility] 1.02 mg/dl [facility] GFR, Estimated >60 >60 [facility] ml/min/1.7 [facility] 3m2 GFR, Est., If >60 >60 [facility] Black ml/min/1.7 [facility] 3m2 Specimen Anatomical Collection Method Collection Time Receive d Time (Source) Location / / Volume Laterality 01/01/2018 3:40 PM 8 3:[address] [facility] - 01/01/2018 4:17 PM CD T Performed at [facility] , [address] [place] [address] Ingrid Groves MD LAB_1 Performing Organization Address [facility] Phon e Number [address] [address], [facility] (ABNORMAL) Complete Blood Count-No Diff (01/01/2018 3:40 PM CDT) P athologist Signature WBC 13.3 (H) 4.0 - 11.0 [facility] RBC 4.22 4.0 - 5.2 [facility] Hemoglobin 12.4 12.0 - 16.0 [facility] gdl [facility] HCT 37.6 36.0 - 46.0 [facility] MCV 89.1 80 - [address] [facility] MCH 29.4 26 - [address] [facility] MCHC 33.0 32 - 36 [facility] RDW 14.4 11.5 - 14.5 [facility] Platelets 379 150 - 450 [facility] MPV 9.2 (L) 9.4 - 12.4 [facility] Specimen Anatomical Collection Method Collection Time Receive d Time (Source) Location / / Volume Laterality 01/01/2018 3:40 PM 8 3:49 CDT PM CDT [facility] - 01/01/2018 3:55 PM CD T Performed at [facility] , [address] [place] [address] Ingrid Groves MD LAB_1 Performing Organization Address City/[facility] Phon e Number [address] [address], [facility] [phone] Anaerobic Culture (01/01/2018 2:21 PM CDT) Component Value Ref Test Analysis Performed At Patholo gist Range Method Time Signature Specimen [facility] Description [facility] Special OTHER(TYPE [facility] Requests IN) LABORATORIES Culture No Anaerobes [facility] Isolated LABORATORIES Report Status 01/08/2018 [facility] Final LABORATORIES Specimen Anatomical Collection Method Collection Time Receive d Time (Source) Location / / Volume Laterality SWAB / Unknown 01/01/2018 2:21 PM 018 4:36 CDT PM CDT Ingrid Groves MD LAB_1 Performing Organization Address City/State/ZIP Code [facility] Number [facility] [phone] documented in this encounter Visit Diagnoses Diagnosis Fever, unspecified fever cause - Primary Wound of buttock, unspecified laterality , initial encounter Fu catheter status Other postprocedural status Plan of Care - Reji Miller, PharmD - 01/01/2018 8:52 PM CDT [phone] Abnormal Result Follow Up HPI: 73 y.o. female presented on 01/01/18 for evaluation of upper leg/buttock wound with culture now growing pseudomonas. Antibiotics prescribed at discharge: ciprofloxacin 500 mg po bid x 7 days. Plan: I spoke to RN (Kathya) from [facility] regarding wound. Per RN pt is followed by wound MD weekly and wound is currently improving on therapy. She stated she would inform wound MD that there are new culture results and have MD follow up. Triage Assessment Note - Amparo Mejias RN - 01/01/2018 2:57 PM CDT Pt arrives per medics from [facility]. Pt had temp 100.1. Wound draining with foul odor buttocks. documented in this encounter Care Teams Clerk Carrier Relationship Specialty Start Date End Date Lucero Stevenson MD PCP - General Internal Medicine 01/01/18 11/29/21 documented as of this encounter
--- OUTSIDE RECORDS SUMMARY | 2022-06-15 12:37 | XMS_ITS | Encounter Summary ---
:1945 Author Organization [facility] Address [address] [place] [address] Care Team Providers Name Role Phone Lucero Stevenson MD Primary Care Provider Encounter Details Date Type Department Care Team Description 01/31/[address] [facility] Ingrid Groves MD Transportation [address] [facility] [address] [address] [phone] Social History Tobacco Use Types Packs/Day Years [...] on filedocumented in this encounter Care Teams Optical Manager Relationship Specialty Start Date End Date Lucero Stevenson MD PCP - General Internal Medicine 01/01/18 11/29/21 documented as of this encounter
--- OUTSIDE RECORDS SUMMARY | 2022-06-15 12:37 | XMS_ITS | Encounter Summary ---
:1945 Author Organization [facility] Address [address] [place] [address] Care Team Providers Name Role Phone Unavailable Primary Care Provider Unavailable Reason for Visit Reason Comments Dental Conversion [facility] EDR to Worth convers ion Encounter Details Date Type Department Care Team Description 12/22/2016 Dental Conversion [facility] Stefanie Hager, [facility] [address] [address] [phone] (Wo rk) Social History Tobacco Use Types Packs/Day Years Used Date Smoking Tobacco: Never Assessed Food Insecurity Answer Date Recorded Within the [...] on file documented as of this encounter Discharge Summaries Interface, In Edr Dental Conversion - 05/23/2013 12:00 AM CST EDR dismissed Clerical Popup Note, entered 05/23/2013: sign tx est [place] ASSOCIATE MANAGER BILINGUAL Interface, In Edr Dental Conversion - 06/08/2010 12:00 AM CST EDR dismissed Popup Note, entered 06/08/2010: schedule pt only when room #8 is available [place] ASSOCIATE MANAGER BILINGUAL documented in this encounter Plan of Treatment Not on filedocumented as of this encounter Visit Diagnoses Not on filedocumented in this encounter
--- OUTSIDE RECORDS SUMMARY | 2022-06-15 12:37 | XMS_ITS | Encounter Summary ---
:1945 Author Organization [facility] Address [address] [place] [address] Care Team Providers Name Role Phone Lucero Stevenson MD Primary Care Provider [phone] Encounter Details Date Type Department Care Team Description [facility]/14[facility]2018 [facility] [address] [facility]. [address] [place], [place] [address] [place], [place] [phone] Social History Tobacco Use Types Packs/Day Years [...] on filedocumented in this encounter Care Teams Reactor Technician Relationship Specialty Start Date End Date Lucero Stevenson MD PCP - General Internal Medicine 01/01/18 11/29/21 documented as of this encounter
--- OUTSIDE RECORDS SUMMARY | 2022-06-15 12:37 | XMS_ITS | Encounter Summary ---
:1945 Author Organization [facility] Address [address] [facility] [place] [address] Care Team Providers Name Role Phone Chastity Montero MD Unavailable [phone] Johnnie Alcocer MD Unavailable Mtm, Ea Complex Unavailable Unavailable Svetlana Osman [facility] Unavailable [phone] Haylie Cheung [facility] Unavailable [phone] Jaiden Holcomb MD Unavailable Brook Sánchez MD Unavailable Osmar Kidd MD Unavailable Erlinda Barber MD Unavailable Yane Barraza MD Primary Care Provider Gaye Patrick RN Unavailable Unavailable Kenya Abernathy APRN CRACKING UNIT OPERATOR Unavailable [phone] Hayley German OD Unavailable [phone] Haylie Cheung [facility] Unavailable [phone] Encounter Details Date Type Department Care Team Description 05/31/2022 Orders Only [facility] Yane Barraza MD Anticoagulation Clin ic [address] [facility] [address] [facility] [place] [phone] [place] [address] (Wo rk) Social History [...] or relatives? How often do you attend mandaen or More than 4 times per year 05/03/2021 church services? Do you belong to any clubs or No 05/03/2021 organizations such as mandaen groups, unions, fraternal or athletic groups, or [...] place to sleep or slept in a retirement (including now)? Education Answer Date Recorded What [...] 11/15/2022 Virtual Visit Pharm D Haylie Cheung, [facility] [address] [facility] [place] [address] (Wo winter) 11/15/2022 Virtual Visit IM/Peds Yane Barraza MD [address] [facility] [place] [address] (Wo winter) 03/03/2023 Virtual Visit Neurology Erlinda Barber MD [address] [facility] [address] [place], [place] [address] (Wo winter) documented as of this encounter Procedures Procedure Name Priority Date/Time Associated Diagnosis Comme nts INR (EXTERNAL Routine 05/31/2022 12:00 AM Results for this RESULT) MANGLE OPERATOR GARMENTS procedure are i n the results section. documented in this encounter Results INR (External Result) (05/31/2022 12:00 AM MANGLE OPERATOR GARMENTS) P athologist Signature INR HOME 2.6 2.000 - [facility] 3.000 [facility] Specimen (Source) Anatomical Location Collection Method / Collectio n Time Received Time / Laterality Volume 05/31/2022 Narrative [facility] - 05/31/2022 6:4 1 PM MANGLE OPERATOR GARMENTS Yane Barraza MD LAB - HIM EXTERNAL RESULT Performing Organization Address City/State/ZIP Code Phon e Number [facility] [address] [place] [address] documented in this encounter Visit Diagnoses Not on filedocumented in this encounter Additional Health Concerns Assessment Noted Time PHQ-9 Depression Total Score: 4 04/12/2019 7:03 AM CDT documented as of this encounter Care Teams Flare Breaker Relationship Specialty Start Date End Date Yane Barraza MD PCP - General Internal Medicine 12/08/[address] [place] [address] [place], [place] [id number] Chastity Montero MD Dermatology 09/23/14 MD Martha [address] [facility] [address] [place], [place] [address] Johnnie Alcocer MD Surgeon General Surgery 03/23/[address] [place], [place] [id number] Mtm, Ea Complex 04/23/19 Svetlana Osman Pharmacist Pharmacotherapy 04/23/19 Era [facility] [address] [place] [address] Haylie Cheung, Pharmacist Pharmacist 09/11/19 [facility] [address] [place], [place] [id number] Jaiden Holcomb Assigned PCP 05/24/20 MD Jayesh [address] [place], [place] [address] Brook Sánchez MD Assigned Infectious 07/04/21 [address] [facility] SE Disease Provider [place], [place] [address] Osmar Kidd MD Assigned Sleep Provider 09/26/21 [address] [place], [place] [address] Erlinda Barber MD Assigned Neuroscience 10/24/[address] [facility] Provider [address] [place], [place] [address] Gaye Patrick, RN Personal Advocate & 01/18/22 Liaison (PAL) Kenya Abernathy APRN Assigned Heart and 01/22/22 CRACKING UNIT OPERATOR Vascular Provider [address] [place] [address] Hayley German Assigned Surgical 02/12/22 Farrah, KENNETH Provider [address] [facility] [place] [address] Haylie Cheung, Assigned MTM Pharmacist 04/13/22 [facility] [address] [facility] [place] [address] documented as of this encounter
--- OUTSIDE RECORDS SUMMARY | 2022-06-15 12:37 | XMS_ITS | Encounter Summary ---
:1945 Author Organization [facility] Address [address] [facility] [address] Care Team Providers Name Role Phone Chastity Montero MD Unavailable [phone] Johnnie Alcocer MD Unavailable Mtm, Ea Complex Unavailable Unavailable Svetlana Osman [facility] Unavailable [phone] Haylie Cheung [facility] Unavailable [phone] Jaiden Holcomb MD Unavailable Brook Sánchez MD Unavailable Osmar Kidd MD Unavailable Erlinda Barber MD Unavailable Yane Barraza MD Primary Care Provider Gaye Patrick RN Unavailable Unavailable Kenya Abernathy APRN ROOF FITTER Unavailable [phone] Hayley German OD Unavailable Haylie Cheung [facility] Unavailable [phone] Encounter Details Date Type Department Care Team Description 06/01/2022 Anticoagulation [facility] Fadumo Davies history of pulmonary embolism (Primary Dx); Therapy Visit 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 How often do you attend synagogue or More than 4 times per year 05/03/2021 confucianist services? Do you belong to any clubs or No 05/03/2021 organizations such as synagogue groups, unions, fraternal or athletic groups, or [...] place to sleep or slept in a correction (including now)? Education Answer Date Recorded What [...] documented as of this encounter Progress Notes Fadumo Davies RN - 06/01/2022 8:20 AM CST ANTICOAGULATION MANAGEMENT Charlette Velma Brush 77 year old female is on warfarin with therapeutic INR result. (Goal INR 2.0-3.0) Recent labs: (last 7 days) 05/31/22 0000 INR 2.6 ASSESSMENT ??? Source(s): Chart [...] INR in 2 weeks Summary As of 06/01/2022 Full warfarin instructions: 5 mg every Sat; 10 mg all other days; Starting 06/01/2022 Next INR check: 06/15/2022 Telephone call with Charlette who verbalizes understanding and agrees to plan Patient to recheck with home meter Education provided: ??? 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 Declined MBE 04/14/2022. She may ask for it in the future. Anticoagulation Care Providers Provider Role Specialty Phone number Galdino Valdez MD Referring Family Medicine [phone] Jaiden Holcomb MD Referring Internal Medicine [phone] Yane Barraza MD Referring Internal Medicine [phone] Lucero Stevenson MD Responsible Internal Medicine [phone] DESIGNER documented in this encounter Plan of Treatment Upcoming Encounters Date Type Specialty Care Team Description 11/15/2022 Virtual Visit Haylie Wakefield, [facility] [address] [facility] [place] [address] (Wo rk) 11/15/2022 Virtual Visit IM/Peds Yane Barraza MD [address] [facility] [address] [place] [phone] (Wo rk) 03/03/2023 Virtual Visit Neurology Erlidna Barber MD [address] [facility] [address] [place], [place] [address] (Wo rk) documented as of this encounter Visit Diagnoses Diagnosis 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 embolism - 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 t herapy Atrial fibrillation, unspecified type (H ) documented in this encounter Additional Health Concerns Assessment Noted Time PHQ-9 Depression Total Score: 4 04/12/2019 7:03 AM CDT documented as of this encounter Care Teams Decay Control Operator Relationship Specialty Start Date End Date Yane Barraza MD PCP - General Internal Medicine 12/08/21 [address] [facility] [address] [place], [place] [phone] Chastity Montero MD Dermatology 09/23/14 MD Martha [address] [facility] 98 [place], [place] [address] Johnnie Alcocer MD Surgeon General Surgery 03/23/[address] [place], [place] [address] Mtm, Ea Complex 04/23/19 Svetlana Osman Pharmacist Pharmacotherapy 04/23/19 Era, [facility] [address] [place], [place] [phone] Haylie Cheung, Pharmacist Pharmacist 09/11/19 [facility] [address] [place], [place] [phone] Jaiden Holcomb Assigned PCP 05/24/20 MD Jayesh [address] [place] [address] Brook Sánchez MD Assigned Infectious 07/04/[address] [place] [address] [place] [address] Osmar Kidd MD Assigned Sleep Provider 09/26/21 [address] [place] [address] Erlinda Barber MD Assigned Neuroscience 10/24/[address] [facility] Provider [address] [place], [place] [address] Gaye Patrick, RN Personal Advocate & 01/18/22 Liaison (PAL) Kenya Abernathy APRN Assigned Heart and 01/22/22 ROOF FITTER Vascular Provider [address] [place] [address] Hayley German Assigned Surgical 02/12/22 KENNETH Yan Provider [address] [facility] [place] [phone] Haylie Cheung, Assigned MTM Pharmacist 04/13/22 [facility] [address] [facility] [place] [address] documented as of this encounter
--- OUTSIDE RECORDS SUMMARY | 2022-06-15 12:37 | XMS_ITS | Encounter Summary ---
:1945 Author Organization [facility] Address [address] [place] [address] Care Team Providers Name Role Phone Lucero Stevenson MD Primary Care Provider [phone] Encounter Details Date Type Department Care Team Description 03/14/2018 [facility] [address] [facility]. [address] [place], [place] [address] [place], [place] [phone] Social History Tobacco Use Types Packs/Day Years [...] on filedocumented in this encounter Care Teams [facility] Relationship Specialty Start Date End Date Lucero Stevenson MD PCP - General Internal Medicine 01/01/18 11/29/21 documented as of this encounter
--- OUTSIDE RECORDS SUMMARY | 2022-06-15 12:37 | XMS_ITS | Encounter Summary ---
:1945 [facility] Address [address] [place] [address] Care Team Providers Name Role Phone Lucero Stevenson MD Primary Care Provider [phone] Reason for Visit Procedure/Equipment (Routine) - Incomplete Specialty Diagnoses / Procedures Referred By Contact Refer red To Contact Procedures Ingrid Groves MD XR Portable Chest 1 View [address] [facility] [place] [address] Referral ID Status Reason Start Date Expiration Date Visits V isits Requested Authorized [id number] Incomplete 01/01/2018 04/02/2019 1 1 Encounter Details Date Type Department Care Team Description 01/01/2018 Imaging [facility] [address] [place] [id number] Social History Tobacco Use Types Packs/Day Years [...] Diagnosis Comme nts XR PORTABLE CHEST 1 STAT 01/01/2018 5:44 [...] PM CDT Narrative 01/01/2018 5:56 PM CDT [facility] XR PORTABLE CHEST 1 VIEW 01/01/2018 5:44 PM INDICATION: Undifferentiated fever COMPARISON: None. FINDINGS: Negative chest. Both lungs wai ar. Procedure Note Omi Epperson MD - 01/01/2018Form atting of this note might be different from the original. [facility] XR PORTABLE CHEST 1 VIEW 01/01/2018 5:44 PM INDICATION: Undifferentiated fever COMPARISON: None. FINDINGS: Negative chest. Both lungs wai ar. Ingrid Groves MD RAD PORTABLE documented in this encounter Visit Diagnoses Not on filedocumented in this encounter Care Teams Director Non Profit Relationship Specialty Start Date End Date Lucero Stevenson MD PCP - General Internal Medicine 01/01/18 11/29/21 documented as of this encounter
--- OUTSIDE RECORDS SUMMARY | 2022-06-15 12:38 | XMS_ITS | Encounter Summary ---
:1945 Author Organization [facility] Address [address] [place] [address] Care Team Providers Name Role Phone Chastity Montero MD Unavailable [phone] Johnnie Alcocer MD Unavailable Mtm, Ea Complex Unavailable Unavailable Svetlana Osman [facility] Unavailable [phone] Haylie Cheung [facility] Unavailable [phone] Jaiden Holcomb MD Unavailable Brook Sánchez MD Unavailable Osmar Kidd MD Unavailable Erlinda Barber MD Unavailable Yane Barraza MD Primary Care Provider Gaye Patrick RN Unavailable Unavailable Kenya Abernathy APRN MACHINE FEEDER RAW STOCK Unavailable [phone] Hayley German OD Unavailable [phone] Haylie Cheung [facility] Unavailable [phone] Reason for Visit Reason Comments Medication Therapy Management Encounter Details Date Type Department Care Team Description 05/17/2022 Office Visit [facility] Haylie Cheung obesity (H) (Primary Dx); Clinic Yarelis Rojas Sanjuanita Constipation, unspecified constipation t ype; [address] Iron deficiency anemia, unspecified iron deficiency anemia type; [address] [place] [address] Atrial fibrillation, unspecified type (H ); [address] Acute diastolic heart failur e (H); [place] [id number] (Work) Pressure ulcer of ischium, left, stage I V (H); [phone] Intermitt ent pain; Lymphedema of b oth lower extremities; Screening for h yperlipidemia; 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 How often do you attend faith or More than 4 times per year 05/03/2021 mosque services? Do you belong to any clubs or No 05/03/2021 organizations such as faith groups, unions, fraternal or athletic groups, or [...] place to sleep or slept in a mcfp (including now)? Education Answer Date Recorded What [...] documented as of this encounter Progress Notes Haylie Cheung, [facility] - 05/17/2022 1:30 PM CDT Images from the original note were not included. Medication Therapy Management (MTM) Encounter ASSESSMENT: Medication Adherence/Access: No issues identified Weight management: Patient would benefit from starting weight loss pharmacotherapy. Patient declinedinterest at this time. ?? Intermittent Pain: Stable. ?? CHF/Afib/Lymphedema: Stable. Meeting blood pressure < 130/80 mm Hg goal. Hyperlipidemia: Stable. Recurrent PE: Patient may benefit from replacing warfarin with a DOAC, such as Eliquis or Xarelto, for convenience or if more frequent sub/supratherapeutic INR's. ?? Anemia: Stable. Seizure: Stable. Continue with neurology. ?? Eczema/Wound: Stable. ?? Supplements/Osteoporosis screening: Patient would benefit from repeated DEXA scan due to concerns for fracture risk after she had fractured her metatarsal while putting on a shoe. There is little evidence supporting the use of daily probiotics for the patient's current medical conditions. It is reasonable to continue probiotics due to patient preference as they are likely not harmful. Constipation: Stable. Vaccines: Patient would benefit from Influenza and bivalent Covid booster. PLAN: Educated patient on probiotic indication and evidence. Suggest patient stop probiotic daily use. covid and flu shot today Discussed techniques for home INR machine suggest by INR RN. If still an issue may consider changingto DOAC. Patient is interested and will check her insurance. DEXA ordered Follow-up: Return in about 6 months (around 11/14/2022) for sb5 covisit with MTM. SUBJECTIVE/OBJECTIVE: Charlette Brush is a 77 year old female coming in for follow-up visit today. She was seen as a co-visitwith Dr. Barraza. Today is a follow-up from 01/11/2022. Reason for visit: she would like to get medication refills due to issues with refills lately and shereports fractured metatarsal - using bone stimulator machine to help with healing. Allergies/ADRs: Reviewed in chart Past Medical History: Reviewed in chart Tobacco: She reports that she has never smoked. She has never used smokeless tobacco. Alcohol: not currently using Medication Adherence/Access: manages her own medications. Wound care - she reports receives supplies every few days and goes into Wound clinic in [place] for cares weekly. The patient fills medications at [facility]: NO, fills medications at [facility]. Request refills for everything, having trouble with [facility] communicating what has refills available for delivery. Weight Management: Current medication(s) include: none. She reports meeting with bariatric clinic inthe past and advised to consider a medication (naltrexone) for appetite suppression but she does notfeel comfortable starting this until wound is healed. She is worried that the medication would keep her from eating a high protein diet. Nutrition/Eating Habits: n/a Exercise/Activity: n/a Wt Readings from Last 4 Encounters: 05/17/22 (!) 367 lb 1.6 oz (166.5 kg) 01/20/22 (!) 364 lb (165.1 kg) 01/11/22 (!) 362 lb 9.6 oz (164.5 kg) 12/17/21 (!) 361 lb (163.7 kg) Estimated body mass index is 57.5 kg/m?? as calculated from the following: Height as of an earlier encounter on 05/17/22: 5' 7 (1.702 m). Weight as of an earlier encounter on 05/17/22: 367 lb 1.6 oz (166.5 kg). ?? Intermittent pain: Currently taking acetaminophen 500 mg at bedtime most days, but will take more ifshe goes to the wound clinic as this can cause her some mild-moderate pain. She feels this is effective. She had increased to acetaminophen 1000 mg nightly for some time after breaking her toe. ?? CHF/Afib/Lymphedema: working with bottom liner, Kenya Abernathy, REM[facility] and Dr. Alcala. Lymphedema clinic, has lymphedema pump/tube that she wears every day. No SOB or swelling concerns with decreased furosemide. Reports has had infrequent episodes of dizziness when flipped around too quickly during wound cares or when getting into bed at night. No palpitations/fluttering symptoms. ECHO 2018 EF 55-60% Medications: - Furosemide 20 mg daily - Losartan 50mg every day AM - Metoprolol succinate XL 25 mg daily BP Readings from Last 3 Encounters: 05/17/22 120/72 01/20/22 130/78 01/11/22 138/82 Hyperlipidemia: Current therapy includes atorvastatin 20mg daily. No side effects. Recent Labs Lab Test 01/25/22 1146 09/25/20 1025 CHOL 117 142 HDL 55 54 LDL 44 72 TRIG 92 82 Recurrent PE: Current medication is wafarin in the evening as directed by INR clinic. Per Dr. Felipe recommendation lifelong therapy. Denies any bleeding concerns. Home INR today 2.6. Sometimes has difficulty placing blood on test strip on home machine. Lab Results Component Value Date INR 2.8 04/29/2022 INR 2.5 04/14/2022 INR 2.5 04/14/2022 INR 2.5 03/29/2022 Anemia: Hx of iron deficiency induced anemia. Current medication is ferrous sulfate 325mg every other day with breakfast (along with vitamin C). Recently bought iron gummies 18 mg elemental Fe, has notstarted taking them. Denies any side effects. Lab Results Component Value Date HGB 15.1 10/01/2021 IRON 71 10/01/2021 VIOLETTA 42 10/01/2021 VIOLETTA 41 10/01/2021 B12 624 03/27/2020 FOLIC 18.9 03/09/2020 Seizure: Current medication is levetiracetam 500mg twice a day. S/E: none. Denies any new seizures that patient is aware of. Specialist: Dr. Barber, Neurology, follows annually. Eczema/Wound: She had wound vac for a few months. Wound vac removed. 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 She has a chronic L ischial wound. The slow heal is thought to be due to lymphedema and habitus. No rash concerns today. Going to wound clinic weekly. Medications: cetirizine 10 mg twice daily (she reports for inflamed skin per forensic psychiatrist), hydrocortisone 2.5% ointment PRN, triamcinoloine ointment as needed, nystatin cream or powder for wound healing/infection which she feels is highly effective. Specialist: Patience Toussaint, Vascular Surgery. Dr. John and Dr. Sánchez/ID specialist. ?? Supplements/Osteoporosis screening: Currently taking vitamin D 5000 units every day, MV comparable to Centrum Silver 1 tablet every day, Preservision/Luteine 1 cap every day for macular degeneration, vitamin C 1000 mg daily, Fish oil 1g daily, Zinc 50 mg daily, and Renew Life Probiotic daily. Her dietary Calcium reported from the past which she denies any change was ~ 2 glasses milk, cottagecheese, protein shake daily (Pure Protein shakes). Normal DEXA scan 2012 however was only the forearm. Lab Results Component Value Date VITDT 56 10/01/2021 VITDT 58 12/04/2020 VITDT 54 01/01/2016 VITDT 63 12/30/2014 Constipation: she reports rotating the docusate 100 mg daily as needed, bisacodyl daily as needed, fiber capsule daily as needed. Alternates between the medications as needed, wants to avoid pushing due to hernia. She feels this is effective majority of the time. She is having daily bowel movement. She history of positive gene for Celiac but denies any symptoms for Celiac. However, she would like to stay gluten-free. Vaccines: patient had declined Shingrix in the past. Most Recent Immunizations Administered Date(s) Administered ??? COVID-19,PF,Pfizer (12+ Yrs) 05/13/2021 ??? COVID-19,PF,Pfizer 12+ YRS BIVALENT Booster 05/17/2022 ??? COVID-19,PF,Pfizer 12+ Yrs (2021 and After) 01/11/2022 ??? FLU 6-35 months 04/19/2010 ??? Influenza (High Dose) 3 valent vaccine 04/23/2019 ??? Influenza (IIV3) PF 04/26/2012 ??? Influenza, Quad, High Dose, Pf, 65yr+ (Fluzone HD) 05/17/2022 ? ? Pneumo Conj 13-V (2009&after) 12/30/2014 ??? Pneumococcal 23 valent 12/06/2011 ??? TD (ADULT, 7+) 08/27/2004 ??? TDAP Vaccine (Adacel) 12/30/2014 ??? Td (Adult), Adsorbed 08/27/2004 Today's Vitals: BP Readings from Last 1 Encounters: 05/17/22 120/72 Pulse Readings from Last 1 Encounters: 05/17/22 80 Wt Readings from Last 1 Encounters: 05/17/22 (!) 367 lb 1.6 oz (166.5 kg) Ht Readings from Last 1 Encounters: 05/17/22 5' 7 (1.702 m) Estimated body mass index is 57.5 kg/m?? as calculated from the following: Height as of an earlier encounter on 05/17/22: 5' 7 (1.702 m). Weight as of an earlier encounter on 05/17/22: 367 lb 1.6 oz (166.5 kg). Temp Readings from Last 1 Encounters: 05/17/22 98.1 ??F (36.7 ??C) (Tympanic) I spent 55 minutes with this patient today. All changes were made via verbal approval with Yane Barraza MD. A copy of the visit note was provided to the patient's provider(s). The patient was given a summary of these recommendations. See Provider note/AVS from today. Sissy Manzano PharmD 4 Student Haylie Cheung, JosephD Medication Therapy Management Pharmacist Medication Therapy Recommendations Takes dietary supplements Current Medication: Probiotic Product (PROBIOTIC PO) Rationale: No medical indication at this time - Unnecessary medication therapy - Indication Recommendation: Discontinue Medication Status: Accepted per Provider Vaccine counseling Rationale: Preventive therapy - Needs additional medication therapy - Indication Recommendation: Order Vaccine - Pfizer COVID-19 Vac Bivalent 30 MCG/0.3ML Susp Status: Accepted per Provider documented in this encounter Plan of Treatment Upcoming Encounters Date Type Specialty Care Team Description 11/15/2022 Virtual Visit Pharm D Haylie Cheung [facility] [address] [facility] [place] [address] (Lena max) 11/15/2022 Virtual Visit IM/Peds Yane Barraza MD [address] [facility] [place] [id number] (Lena max) 03/03/2023 Virtual Visit Neurology Erlinda Barber MD [address] [facility] [address] [place] [address] (Lena max) documented as of this encounter Visit Diagnoses Diagnosis Morbid obesity (H) - Primary Morbid obesity Constipation, unspecified constipation t ype Iron deficiency anemia, unspecified iron deficiency anemia type Atrial fibrillation, unspecified type (H ) Acute diastolic heart failure (H) Acute diastolic heart failure Pressure ulcer of ischium, left, stage I V (H) Intermittent pain Generalized pain Lymphedema of both lower extremities Screening for hyperlipidemia Screening for lipoid disorders 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 embolism Seizure (H) Other convulsions Eczema, unspecified type Takes dietary supplements Screening for osteoporosis Special screening for osteoporosis Vaccine counseling documented in this encounter Additional Health Concerns Assessment Noted Time PHQ-9 Depression Total Score: 4 04/12/2019 7:03 AM CDT documented as of this encounter Care Teams Bull Gang Worker Relationship Specialty Start Date End Date Yane Barraza MD PCP - General Internal Medicine 12/08/21 [address] [address] [place], [place] [id number] Chastity Montero MD Dermatology 09/23/14 MD Martha [address] [place] [address] [address] [place] [address] Johnnie Alcocer MD Surgeon General Surgery 03/23/[address] [place], [place] [address] Mtm, Ea Complex 04/23/19 Svetlana Osman Pharmacist Pharmacotherapy 04/23/19 Era, [facility] [address] [place] [id number] Haylie Cheung, Pharmacist Pharmacist 09/11/19 [facility] [address] [place] [id number] Jaiden Holcomb Assigned PCP 05/24/20 MD Jayesh [address] [place] [id number] Brook Sánchez MD Assigned Infectious 07/04/[address] [place] [address] [place] [address] Osmar Kidd MD Assigned Sleep Provider 09/26/21 [address] [facility] [address] [place], [place] [id number] Erlinda Barber MD Assigned Neuroscience 10/24/[address] [facility] Provider [address] [place] [address] Gaye Patrick, RN Personal Advocate & 01/18/22 Liaison (PAL) Kenya Abernathy APRN Assigned Heart and 01/22/22 MACHINE FEEDER RAW STOCK Vascular Provider [address] [place] [address] Hayley German Assigned Surgical 02/12/22 KENNETH Yan Provider [address] [facility] [place] [address] Haylie Cheung, Assigned MTM Pharmacist 04/13/22 [facility] [address] [facility] [place] [address] documented as of this encounter
--- OUTSIDE RECORDS SUMMARY | 2022-06-15 12:38 | XMS_ITS | Encounter Summary ---
:1945 Author Organization [facility] Address [address] [place] [address] Care Team Providers Name Role Phone Chastity Montero MD Unavailable [phone] Johnnie Alcocer MD Unavailable Mtm, Ea Complex Unavailable Unavailable Svetlana Osman [facility] Unavailable [phone] Haylie Cheung [facility] Unavailable [phone] Jaiden Holcomb MD Unavailable Brook Sánchez MD Unavailable Osmar Kidd MD Unavailable Erlinda Barber MD Unavailable Yane Barraza MD Primary Care Provider Gaye Patrick RN Unavailable Unavailable Kenya Abernathy APRN OYSTER WORKER Unavailable [phone] Hayley German OD Unavailable Haylie Cheung [facility] Unavailable [phone] Reason for Referral Diagnostic Imaging Dexa (Routine) - Pending Review Specialty Diagnoses / Procedures Referred By Contact Refer red To Contact Diagnoses Postmenopausal Closed displaced fracture of metatarsal bone of left foot with routine healing, unspecified metatarsal, subsequent encounter Yane Barraza MD Procedures DX Hip/Pelvis/Spine [address] [facility] [place] [address] Referral ID Status Reason Start Date Expiration Date Visits V isits Requested Authorized [id number] Pending 05/17/2022 05/17/2023 1 1 Review Reason for Visit Reason Comments RECHECK Encounter Details Date Type Department Care Team Description 05/17/2022 Office Visit [facility] Yane Barraza, Postmen opausal (Primary Dx); Clinic Yarelis PATEL Closed displaced fracture of metatarsal bone of left foot with routine healing, unspecified metatarsal, subsequent encounter; [address] [facility] Atria l fibrillation, unspecified type (H); Active DSP Lymphedema of both lower extremities; [address] [place] [address] 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 How often do you attend caodaism or More than 4 times per year 05/03/2021 mosque services? Do you belong to any clubs or No 05/03/2021 organizations such as caodaism groups, unions, fraternal or athletic groups, or [...] place to sleep or slept in a skilled nursing (including now)? Education Answer Date Recorded What [...] have Coronavirus/COVID-19? documented as of this encounter Last Filed [...] Mass Index 57.5 05/17/2022 1:05 PM CDT documented in this encounter Patient Instructions Patient InstructionsShort, Yane Barrera MD - 05/17/2022 2:00 PM CDT Recommendations from today's visit: Separate the fiber capsules from other medications. If you change the iron tablet to the chewable, you will need to take at least 3- 4 chewables to equalthe 1 iron tablet. We will help refill medications for you. We can ask the INR nurse about tips with using the home INR machine and send you a mychart afterwards. Your current probiotic has a mixture of lactobacillus and bifidobacterium which seems like reasonable concentrations. There is a probiotic that has more evidence in certain condition such as irritable bowel syndrome that can be effective called Align. They will call you to schedule the bone density test. There is a medication called Eliquis (apixaban). Or another common option is called rivaroxaban (Xarelto) for warfarin alternatives Covid and flu shot today Follow-up: November 15 at 130 pm video visit It was great speaking with you today. I value your experience and would be very thankful for your time in providing feedback in our clinic survey. In the next few days, you may receive an email or textmessage from [employer] with a link to a survey related to your visit today. Care Team contact information: Primary care provider: Yane Barraza MD Clinical Pharmacist: Haylie Cheung PharmD Please feel free to contact us with any questions or concerns you have. Y documented in this encounter Progress Notes Yane Barraza MD - 05/17/2022 2:00 PM CDT Assessment & Plan Postmenopausal Discussed concern about fracture with minor trauma. Repeat bone density test - DX Hip/Pelvis/Spine; Future Closed displaced fracture of metatarsal bone of left foot with routine healing, unspecified metatarsal, subsequent encounter Try to get ortho notes. Continue care - DX Hip/Pelvis/Spine; Future Atrial fibrillation, unspecified type (H) Anticoagulated. Rate control. Discussed option of change to DOAC. 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 Consider change to DOAC Essential hypertension, benign Controlled. Continue medication I spent a total of 36 minutes on the day of the visit. Time spent doing chart review, history and exam, documentation and further activities per the note.Patient visit conducted BMI: Estimated body mass index is 57.5 kg/m?? as calculated from the following: Height as of this encounter: 1.702 m (5' 7). Weight as of this encounter: 166.5 kg (367 lb 1.6 oz). See Patient Instructions Return in about 6 months (around 11/14/2022) for Recheck virtual with me. Yane Barraza MD [employer] YARELIS Ovalles is a 77 year old, presenting for the following health issues: RECHECK History of Present Illness Hypertension: She presents for follow up of hypertension. She does check blood pressure regularly outside of the clinic. Outpatient blood pressures have not been over 140/90. She follows a low salt diet. Foot fracture from putting on shoe. Has neuropathy and didn't feel it. Saw ortho in [place] with [facility] and using bone stimulator. Dr. Easton. Last dexa 10 yrs ago. Review of Systems Objective BP 120/72 (BP Location: Right arm, Patient Position: Chair, Cuff Size: Adult Regular) Pulse 80 Temp 98.1 ??F (36.7 ??C) (Tympanic) Resp 16 Ht 1.702 m (5' 7) Wt (!) 166.5 kg (367 lb 1.6 oz) LMP (LMP Unknown) SpO2 97% BMI 57.50 kg/m?? Body mass index is 57.5 kg/m??. Physical Exam GENERAL: obese, alert and no distress documented in this encounter Plan of Treatment Upcoming Encounters Date Type Specialty Care Team Description 11/15/2022 Virtual Visit Pharm D Haylie Cheung, [facility] [address] [facility] [address] (Wo rk) 11/15/2022 Virtual Visit IM/Peds Yane Barraza MD [address] [place] [address] (Wo rk) 03/03/2023 Virtual Visit Neurology Erlinda Barber MD [address] [facility] [address] [place], [place] [phone] (Wo rk) Scheduled Orders Name Type Priority Associated Diagnoses Order S chedule DX Hip/Pelvis/Spine Imaging Routine Postmenopaus al Expected: 05/17/2022 Closed displaced fracture (A pproximate), Expires: of metatarsal bone of left 1 07/17/2022 foot with routine healing, unspecified metatarsal, subsequent encounter documented as of this encounter Visit Diagnoses Diagnosis Postmenopausal - Primary Asymptomatic postmenopausal status (age- related) (natural) Closed displaced fracture of metatarsal bone of left foot with routine healing, unspecified metatarsal, subsequent encou nter Atrial fibrillation, unspecified type (H ) Lymphedema of both lower extremities 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 embolism Essential hypertension, benign documented in this encounter Additional Health Concerns Assessment Noted Time PHQ-9 Depression Total Score: 4 04/12/2019 7:03 AM CDT documented as of this encounter Care Teams Residential Mortgage Manager Relationship Specialty Start Date End Date Yane Barraza MD PCP - General Internal Medicine 12/08/[address] [facility] [address] [place], [place] [phone] Chastity Montero MD Dermatology 09/23/14 MD Martha [address] [facility] [address] [place] [address] Johnnie Alcocer MD Surgeon General Surgery 03/23/[address] [place], [place] [address] Mtm, Ea Complex 04/23/19 Svetlana Osman Pharmacist Pharmacotherapy 04/23/19 Era, [facility] [address] [place], [place] [id number] Haylie Cheung, Pharmacist Pharmacist 09/11/19 [facility] [address] [facility] [address] [place] [phone] Jaiden Holcomb Assigned PCP 05/24/20 MD Jayesh [address] [place], [place] [address] Brook Sánchez MD Assigned Infectious 07/04/21 [address] [facility] Disease Provider [place], [place] [address] Osmar Kidd MD Assigned Sleep Provider 09/26/21 [address] [place] [address] Erlinda Barber MD Assigned Neuroscience 10/24/21 [address] [facility] Provider [address] [place], [place] [address] Gaye Patrick, RN Personal Advocate & 01/18/22 Liaison (PAL) Kenya Abernathy APRN Assigned Heart and 01/22/22 OYSTER WORKER Vascular Provider [address] [place] [id number] Hayley German Assigned Surgical 02/12/22 Farrah, OD Provider [address] [facility] [address] [place], [place] [phone] Haylie Cheung, Assigned MTM Pharmacist 04/13/22 [facility] [address] [facility] [address] [place], [place] [id number] documented as of this encounter
--- OUTSIDE RECORDS SUMMARY | 2022-06-15 12:38 | XMS_ITS | Encounter Summary ---
:1945 Author Organization [place] Address [address] [facility] [place] [address] Care Team Providers Name Role Phone Chastity Montero MD Unavailable [phone] Johnnie Alcocer MD Unavailable Mtm, Ea Complex Unavailable Unavailable Svetlana Osman [facility] Unavailable [phone] Haylie Cheung [facility] Unavailable [phone] Jaiden Holcomb MD Unavailable [phone] Brook Sánchez MD Unavailable Osmar Kidd MD Unavailable Erlinda Barber MD Unavailable Yane Barraza MD Primary Care Provider Gaye Patrick RN Unavailable Unavailable Kenya Abernathy APRN HAT RENOVATOR Unavailable [phone] Hayley German OD Unavailable Haylie Cheung [facility] Unavailable [phone] Encounter Details Date Type Department Care Team Description 04/29/2022 Anticoagulation [facility] Ruben Katz history of pulmonary embolism (Primary Dx); Therapy Visit Anticoagulation Clin seth Mota RN retirement current use of ant icoagulant therapy; [address] Atrial fibrillation, unspeci fied type (H) [place] [address] Social History Tobacco Use Types Packs/Day Years [...] or relatives? How often do you attend sabianism or More than 4 times per year 05/03/2021 restorationism services? Do you belong to any clubs or No 05/03/2021 organizations such as sabianism groups, unions, fraternal or athletic groups, or [...] place to sleep or slept in a penitentiary (including now)? Education Answer Date Recorded What is the highest level of school Bachelor's degree (e.g., BA, AB, 01/05/2019 you have completed or the highest BS) degree you have received? Sex Assigned at Date Recorded Female 12/24/2018 12:35 PM CDT documented as of this encounter Progress Notes Svetlana Katz, CHANDLER - 04/29/2022 4:27 PM CDT ANTICOAGULATION MANAGEMENT Charlette Brush 77 year old female is on warfarin with therapeutic INR result. (Goal INR 2.0-3.0) Recent labs: (last 7 days) 04/29/22 0000 INR 2.8 ASSESSMENT ??? Source(s): Chart Review and Patient/Caregiver [...] INR in 2 weeks Summary As of 04/29/2022 Full warfarin instructions: 5 mg every Sat; 10 mg all other days Next INR check: 05/13/2022 Telephone call with Charlette who verbalizes understanding and agrees to plan and who agrees to plan andrepeated back plan correctly Patient to recheck with home meter Education provided: Please call back if any changes to your diet, medications or how you've been taking warfarin Plan made per [facility] anticoagulation protocol Svetlana Katz, RN Anticoagulation Clinic 04/29/2022 Anticoagulation Episode Summary Current INR goal: 2.0-3.0 TTR: 72.4 % (1 y) Target end date: Indefinite Send INR reminders to: ANTICOAG HOME MONITORING Indications 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 Declined MBE 04/14/2022. She may ask for it in the future. Anticoagulation Care Providers Provider Role Specialty Phone number Galdino Valdez MD Referring Family Medicine [phone] Jaiden Holcomb MD Referring Internal Medicine [phone] Yane Barraza MD Referring Internal Medicine [phone] Lucero Stevenson MD Responsible Internal Medicine [phone] documented in this encounter Plan of Treatment Upcoming Encounters Date Type Specialty Care Team Description 11/15/2022 Virtual Visit Pharm Haylie Gonzalez, [facility] [address] [facility] [place] [address] (Lena max) 11/15/2022 Virtual Visit IM/Peds Yane Barraza MD [address] 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 t herapy Atrial fibrillation, unspecified type (H ) documented in this encounter Additional Health Concerns Assessment Noted Time PHQ-9 Depression Total Score: 4 04/12/2019 7:03 AM CDT documented as of this encounter Care Teams Manager Renewable Energy Relationship Specialty Start Date End Date Yane Barraza MD PCP - General Internal Medicine 12/08/[address] [place] [address] Chastity Montero MD Dermatology 09/23/14 MD Martha [address] [facility] 98 [place], [place] [address] Johnnie Alcocer MD Surgeon General Surgery 03/23/[address] [place], [place] [address] Mtm, Ea Complex 04/23/19 Svetlana Osman Pharmacist Pharmacotherapy 04/23/19 Era, [facility] [address] [place] [address] Haylie Cheung, Pharmacist Pharmacist 09/11/19 [facility] [address] [place] [address] Jaiden Holcomb Assigned PCP 05/24/20 MD Jayesh 909 [place] [address] Brook Sánchez MD Assigned Infectious 07/04/[address] [place] [address] Disease Provider [place], [place] [address] Osmar Kidd MD Assigned Sleep Provider 09/26/21 [address] [place] [address] Erlinda Barber MD Assigned Neuroscience 10/24/21 [address] [facility] Provider [address] [place], [place] [address] Gaye Patrick, RN Personal Advocate & 01/18/22 Liaison (PAL) Kenya Abernathy APRN Assigned Heart and 01/22/22 HAT RENOVATOR Vascular Provider [address] [place] [address] Hayley German Assigned Surgical 02/12/22 KENNETH Yan Provider [address] [facility] [place] [id number] Haylie Cheung, Assigned MTM Pharmacist 04/13/[address] [facility] [address] [facility] [place] [address] documented as of this encounter
--- OUTSIDE RECORDS SUMMARY | 2022-06-15 12:38 | XMS_ITS | Encounter Summary ---
:1945 Author Organization [place] Address [address] [place] [address] Care Team Providers Name Role Phone Chastity Montero MD Unavailable [phone] Johnnie Alcocer MD Unavailable Mtm, Ea Complex Unavailable Unavailable Svetlana Osman [facility] Unavailable [phone] Haylie Cheung [facility] Unavailable [phone] Jaiden Holcomb MD Unavailable Brook Sánchez MD Unavailable Osmar Kidd MD Unavailable Erlinda Barber MD Unavailable Yane Barraza MD Primary Care Provider Gaye Patrick RN Unavailable Unavailable Kenya Abernathy APRN BIOFUELS PRODUCT MANAGER Unavailable [phone] Hayley German OD Unavailable Reason for Visit Reason Onset Date Comments Refill Request 04/08/2022 Resend refill Encounter Details Date Type Department Care Team Description 04/08/2022 Telephone [facility] Erlinda Barber MD Refill Request (Resend Neurology Clinic [address] [facility] refi ll ) [place] [address] [place], [place] 3rd Floor [address] [place], [place] [phone] (Wo rk) [address] [phone] Social History Tobacco Use Types Packs/Day Years [...] or relatives? How often do you attend jainism or More than 4 times per year 05/03/2021 jewish services? Do you belong to any clubs or No 05/03/2021 organizations such as jainism groups, unions, fraternal or athletic groups, or [...] place to sleep or slept in a longterm (including now)? Education Answer Date Recorded What is the highest level of school Bachelor's degree (e.g., BA, AB, 01/05/2019 you have completed or the highest BS) degree you have received? Sex Assigned at Date Recorded Female 12/24/2018 12:35 PM CDT documented as of this encounter Miscellaneous Notes Telephone Encounter - Estephanie Bustamante RN - 04/08/2022 4:03 PM CDT Rx resent per protocol. Telephone Encounter - Mari Nath - 04/08/2022 3:24 PM CDT [facility] Phone Message May a detailed message be left on voicemail: yes Reason for Call: Medication Refill Request Has the patient contacted the pharmacy for the refill? Yes Name of medication being requested: levETIRAcetam (KEPPRA) 500 MG tablet Provider who prescribed the medication: Hellen Barber Pharmacy: [id number] - [place], [place] [address] [facility] Date medication is needed: [facility] pharmacy is requesting Dr. Barber to resend the refill order for the medication above due to the previous refill order not received on 02/25/2022. Please call Kristy at the [facility] pharmacy with questions or concerns at # [phone] Action Taken: Message routed to: [facility] neurology Travel Screening: Not Applicable documented in this encounter Plan of Treatment Upcoming Encounters Date Type Specialty Care Team Description 11/15/2022 Virtual Visit Pharm Haylie Gonzalez, [facility] [address] [facility] [address] [place], [place] [id number] (Wo rk) 11/15/2022 Virtual Visit [place] [address] [place] [address] [address] [facility] [address] [place] [id number] (Wo rk) 03/03/2023 Virtual Visit Neurology Erlinda Barber MD [address] [place] [address] 295 [place], [place] [address] (Wo rk) documented as of this encounter Visit Diagnoses Diagnosis Recurrent seizures (H) 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 documented in this encounter Additional Health Concerns Assessment Noted Time PHQ-9 Depression Total Score: 4 04/12/2019 7:03 AM CDT documented as of this encounter Care Teams Merchandise Manager Relationship Specialty Start Date End Date Yane Barraza MD PCP - General Internal Medicine 12/08/[address] [place] [address] [employer] [place] [address] Chastity Montero MD Dermatology 09/23/14 MD Martha [address] [facility] 98 [place], [place] [address] Johnnie Alcocer MD Surgeon General Surgery 03/23/[address] [place], [place] [address] Mtm, Ea Complex 04/23/19 Svetlana Osman Pharmacist Pharmacotherapy 04/23/19 Era, [facility] [address] [place] [address] Haylie Cheung, Pharmacist Pharmacist 09/11/19 [facility] [address] [facility] [place] [address] Jaiden Holcomb Assigned PCP 05/24/20 MD Jayesh [address] [place], [place] [address] Brook Sánchez MD Assigned Infectious 07/04/[address] [place] [address] SE Disease Provider [place], [place] [address] Osmar Kidd MD Assigned Sleep Provider 09/26/21 [address] [place] [address] Erlinda Barber MD Assigned Neuroscience 10/24/[address] [facility] Provider [address] [place], [place] [address] Gaye Patrick, RN Personal Advocate & 01/18/22 Liaison (PAL) Kenya Abernathy APRN Assigned Heart and 01/22/22 BIOFUELS PRODUCT MANAGER Vascular Provider [address] [place] [address] Hayley German Assigned Surgical 02/12/22 KENNETH Yan Provider [address] [place] [place] [address] documented as of this encounter
--- OUTSIDE RECORDS SUMMARY | 2022-06-15 12:38 | XMS_ITS | Encounter Summary ---
:1945 Author Organization [place] Address [address] [place] [address] Care Team Providers Name Role Phone Chastity Montero MD Unavailable [phone] Johnnie Alcocer MD Unavailable Mtm, Ea Complex Unavailable Unavailable Svetlana Osman [facility] Unavailable [phone] Haylie Cheung [facility] Unavailable [phone] Jaiden Holcomb MD Unavailable [phone] Brook Sánchez MD Unavailable Osmar Kidd MD Unavailable Erlinda Barber MD Unavailable Yane Barraza MD Primary Care Provider Haylie Cheung [facility] Unavailable [phone] Gaye Patrick RN Unavailable Unavailable Kenya Abernathy APRN GANG PUNCH OPERATOR Unavailable [phone] Hayley German OD Unavailable [phone] Encounter Details Date Type Department Care Team Description 03/01/2022 Anticoagulation [facility] Fadumo Davies history of pulmonary embolism (Primary Dx); Therapy Visit Anticoagulation A, RN [facility] c urrent use of 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; Clinic Atrial fibrillation, unspeci fied type (H) [address] [place] [address] Social History Tobacco Use Types [...] More than 4 times per year 05/03/2021 moravian services? Do you belong to any clubs [...] place to sleep or slept in a care home (including now)? Education Answer Date Recorded What is the highest level of school Bachelor's degree (e.g., BA, AB, 01/05/2019 you have completed or the highest BS) degree you have received? Sex Assigned at Date Recorded Female 12/24/2018 12:35 PM CDT COVID-19 Exposure Response Date Recorded In the last 10 days, have you been in contact with No / Unsu re 02/03/2022 11:15 AM CDT someone who was confirmed or suspected to have Coronavirus/COVID-19? documented as of this encounter Progress Notes Fadumo Davies RN - 03/01/2022 9:22 AM CDT ANTICOAGULATION MANAGEMENT Charlette Velma Brush 77 year old female is on warfarin with therapeutic INR result. (Goal INR 2.0-3.0) Recent labs: (last 7 days) 03/01/22 0000 INR 2.2 ASSESSMENT ??? Source(s): Chart Review and Patient/Caregiver Call ??? Warfarin doses taken: Warfarin taken as instructed ??? Diet: No new diet changes identified ??? New illness, injury, or hospitalization: No ??? Medication/supplement changes: None noted ??? Signs or symptoms of bleeding or clotting: No ??? Previous INR: Subtherapeutic ??? Additional findings: None PLAN Recommended plan for no diet, medication or health factor changes affecting INR Dosing Instructions: Continue your current warfarin dose with next INR in 1 week Summary As of 03/01/2022 Full warfarin instructions: 5 mg every Mon, Sat; 10 mg all other days Next INR check: 03/08/2022 Telephone call with Charlette who verbalizes understanding and agrees to plan Patient to recheck with home meter Education provided: Please call back if any changes to your diet, medications or how you've been taking warfarin Plan made per [facility] anticoagulation protocol Fadumo Davies RN Anticoagulation Clinic 03/01/2022 Anticoagulation Episode Summary Current INR goal: 2.0-3.0 TTR: 68.1 % (1 y) Target end date: Indefinite Send INR reminders to: [facility] Indications 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 Will try again later. 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 embolism - 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 use of anticoagulant t herapy Atrial fibrillation, unspecified type (H ) documented in this encounter Additional Health Concerns Assessment Noted Time PHQ-9 Depression Total Score: 4 04/12/2019 7:03 AM CDT documented as of this encounter Care Teams Electronics Engineering Technologist Relationship Specialty Start Date End Date Yane Barraza MD PCP - General Internal Medicine 12/08/[address] [facility] [address] [place], [place] [phone] Chastity Montero MD Dermatology 09/23/14 MD Martha [address] [facility] 98 [place], [place] [address] Johnnie Alcocer MD Surgeon General Surgery 03/23/[address] [place], [place] [address] Mtm, Ea Complex 04/23/19 Svetlana Osman Pharmacist Pharmacotherapy 04/23/19 Era, [facility] [address] [place], [place] [id number] Haylie Cheung, Pharmacist Pharmacist 09/11/19 [facility] [address] [place], [place] [phone] Jaiden Holcomb Assigned PCP 05/24/20 MD Jayesh [address] [place] [address] Brook Sánchez MD Assigned Infectious 07/04/[address] [place] [address] [place] [address] Osmar Kidd MD Assigned Sleep Provider 09/26/21 [address] [place] [address] Erlinda Barber MD Assigned Neuroscience 10/24/21 [address] [facility] Provider [address] [place], [place] [address] Haylie Cheung, Assigned MTM Pharmacist 01/08/22 04/01/22 [facility] [address] [facility] [place] [address] Gaye Patrick, RN Personal Advocate & 01/18/22 Liaison (PAL) Kenya Abernathy APRN Assigned Heart and 01/22/22 GANG PUNCH OPERATOR Vascular Provider [address] [place] [address] Hayley German Assigned Surgical 02/12/22 KENNETH Yan Provider [address] [facility] [place] [id number] documented as of this encounter
--- OUTSIDE RECORDS SUMMARY | 2022-06-15 12:38 | XMS_ITS | Encounter Summary ---
:1945 Author Organization [place] Address [address] [place] [address] Care Team Providers Name Role Phone Chastity Montero MD Unavailable [phone] Johnnie Alcocer MD Unavailable Mtm, Ea Complex Unavailable Unavailable Svetlana Osman [facility] Unavailable [phone] Haylie Cheung [facility] Unavailable [phone] Jaiden Holcomb MD Unavailable Brook Sánchez MD Unavailable Osmar Kidd MD Unavailable Erlinda Barber MD Unavailable Yane Barraza MD Primary Care Provider Haylie Cheung [facility] Unavailable [phone] Gaye Patrick RN Unavailable Unavailable Kenya Abernathy APRN OIL WINTERIZER Unavailable [phone] Hayley German OD Unavailable Reason for Visit Reason Onset Date Comments Appointment 03/03/2022 Encounter Details Date Type Department Care Team Description 03/03/2022 [facility] Neurology Erlinda Barber MD Appointment Clinic [address] [place] [address] [facility] Floor [place] [phone] Social History Tobacco Use Types Packs/Day Years [...] or relatives? How often do you attend samaritan or More than 4 times per year 05/03/2021 mandaeism services? Do you belong to any clubs or No 05/03/2021 organizations such as samaritan groups, unions, fraternal or athletic groups, or [...] place to sleep or slept in a halfway (including now)? Education Answer Date Recorded What [...] have Coronavirus/COVID-19? documented as of this encounter Miscellaneous Notes Telephone Encounter - Mikayla Samayoa CMA - 03/03/2022 5:21 PM CDT Patient was called to schedule a 1 year follow up appointment with Dr Barber documented in this encounter Plan of Treatment Upcoming Encounters Date Type Specialty Care Team Description 11/15/2022 Virtual Visit Haylie Wakefield, [facility] [address] [facility] [address] [place], [place] [phone] (Wo rk) 11/15/2022 Virtual Visit IM/PedYane Muir MD [address] [facility] [address] (Wo rk) 03/03/2023 Virtual Visit Neurology Erlinda Barber MD [address] [facility] 295 [place], [place] [address] (Wo rk) documented as of this encounter Visit Diagnoses Not on filedocumented in this encounter Additional Health Concerns Assessment Noted Time PHQ-9 Depression Total Score: 4 04/12/2019 7:03 AM CDT documented as of this encounter Care Teams Slate Roofer Relationship Specialty Start Date End Date Yane Barraza MD PCP - General Internal Medicine 12/08/[address] [facility] [address] [place] [phone] Chastity Montero MD Dermatology 09/23/14 MD Martha [address] [facility] 98 [place], [place] [address] Johnnie Alcocer MD Surgeon General Surgery 03/23/[address] [place], [place] [address] Mtm, Ea Complex 04/23/19 Svetlana Osman Pharmacist Pharmacotherapy 04/23/19 Era [facility] [address] [place] [phone] Haylie Cheung, Pharmacist Pharmacist 09/11/19 [facility] [address] [place] [phone] Jaiden Holcomb Assigned PCP 05/24/20 MD Jayesh [address] [place] [address] Brook Sánchez MD Assigned Infectious 07/04/[address] [place] [address] Disease Provider [place], [place] [phone] Osmar Kidd MD Assigned Sleep Provider 09/26/21 [address] [place] [address] Erlinda Barber MD Assigned Neuroscience 10/24/21 [address] [facility] Provider [address] [place], [place] [address] Haylie Cheung, Assigned MTM Pharmacist 01/08/22 04/01/22 [facility] [address] [facility] [place] [id number] Gaye Patrick, RN Personal Advocate & 01/18/22 Liaison (PAL) Kenya Abernathy APRN Assigned Heart and 01/22/22 OIL WINTERIZER Vascular Provider [address] [address] Hayley German Assigned Surgical 02/12/22 KENNETH Yan Provider [address] [facility] [place] [id number] documented as of this encounter
--- OUTSIDE RECORDS SUMMARY | 2022-06-15 12:38 | XMS_ITS | Encounter Summary ---
:1945 Author Organization [place] Address [address] [facility] [place] [address] Care Team Providers Name Role Phone Chastity Montero MD Unavailable [phone] Johnnie Alcocer MD Unavailable Mtm, Ea Complex Unavailable Unavailable Svetlana Osman [facility] Unavailable [phone] Haylie Cheung [facility] Unavailable [phone] Jaiden Holcomb MD Unavailable Brook Sánchez MD Unavailable Osmar Kidd MD Unavailable Erlinda Barber MD Unavailable Yane Barraza MD Primary Care Provider Haylie Cheung [facility] Unavailable [phone] Gaye Patrick RN Unavailable Unavailable Kenya Abernathy APRN JERSEY KNITTER Unavailable [phone] Halyey German OD Unavailable [phone] Encounter Details Date Type Department Care Team Description 03/08/2022 Anticoagulation [facility] Ruben Ellis history of pulmonary embolism (Primary Dx); Therapy Visit Anticoagulation Clin seth Waterman RN correction current use of ant icoagulant therapy; [address] Atrial fibrillation, unspeci fied type (H) [place] [address] Social History Tobacco Use Types Packs/Day Years [...] or relatives? How often do you attend tenriism or More than 4 times per year 05/03/2021 judaism services? Do you belong to any clubs or No 05/03/2021 organizations such as tenriism groups, unions, fraternal or athletic groups, or [...] documented as of this encounter Progress Notes Columba Ellis RN - 03/08/2022 3:42 PM CDT ANTICOAGULATION MANAGEMENT Charlette Velma Brush 77 year old female is on warfarin with subtherapeutic INR result. (Goal INR 2.0-3.0) Recent labs: (last 7 days) 03/08/22 0000 INR 1.9* ASSESSMENT ??? Source(s): Chart Review and Patient/Caregiver Call ??? Warfarin doses taken: Warfarin taken as instructed ??? Diet: No new diet changes identified ??? New illness, injury, or hospitalization: No ??? Medication/supplement changes: None noted ??? Signs or symptoms of bleeding or clotting: No ??? Previous INR: Therapeutic last visit; previously outside of goal range ??? Additional findings: None PLAN Recommended plan for no diet, medication or health factor changes affecting INR Dosing Instructions: Increase your warfarin dose (8.3% change) with next INR in 1 week Summary As of 03/08/2022 Full warfarin instructions: 5 mg every Sat; 10 mg all other days Next INR check: 03/15/2022 Telephone call with Charlette who verbalizes understanding and agrees to plan Patient to recheck with home meter Education provided: Please call back if any changes to your diet, medications or how you've been taking warfarin and Contact [phone] with any changes, questions or concerns. 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 [Z79.01] Atrial fibrillation unspecified type (H) [I48.91] Comments: home monitor start up 02/07/22 Anticoagulation Care Providers Provider Role Specialty Phone number Galdino Valdez MD Referring Family Medicine [phone] Jaiden Holcomb MD Referring Internal Medicine [phone] Yane Barraza MD Referring Internal Medicine [phone] GrahamLucero MD Responsible Internal Medicine [phone] documented in this encounter Plan of Treatment Upcoming Encounters Date Type Specialty Care Team Description 11/15/2022 Virtual Visit Pharm Haylie Gonzalez, [facility] [address] [facility] [place] [address] (Lena max) 11/15/2022 Virtual Visit IM/Peds Yane Barraza MD [address] [facility] [place] [address] (Lena max) 03/03/2023 Virtual Visit Neurology Erlinda Barber MD [address] [facility] [address] [place] [address] (Wo rk) documented as of this encounter Visit Diagnoses Diagnosis 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 embolism - Primary correction current use of anticoagulant t herapy Atrial fibrillation, unspecified type (H ) documented in this encounter Additional Health Concerns Assessment Noted Time PHQ-9 Depression Total Score: 4 04/12/2019 7:03 AM CDT documented as of this encounter Care Teams Vocational Examiner Relationship Specialty Start Date End Date Yane Barraza MD PCP - General Internal Medicine 12/08/[address] [facility] [place] [address] Chastity Montero MD Dermatology 09/23/14 MD Martha [address] [facility] [address] [place], [place] [address] Johnnie Alcocer MD Surgeon General Surgery 03/23/[address] [place], [place] [address] Mtm, Ea Complex 04/23/19 Svetlana Osman Pharmacist Pharmacotherapy 04/23/19 Era, [facility] [address] [place] [address] Haylie Cheung, Pharmacist Pharmacist 09/11/19 [facility] [address] [place] [address] Jaiden Holcomb Assigned PCP 05/24/20 MD Jayesh [address] [place] [address] Brook Sánchez MD Assigned Infectious 07/04/[address] [place] [address] Disease Provider [place], [place] [address] Osmar Kidd MD Assigned Sleep Provider 09/26/21 [address] [place] [address] Erlinda Barber MD Assigned Neuroscience 10/24/21 [address] [facility] Provider [address] [place], [place] [address] Haylie Cheung, Assigned MTM Pharmacist 01/08/22 04/01/22 [facility] [address] [facility] [place] [address] Gaye Patrick, RN Personal Advocate & 01/18/22 Liaison (PAL) Kenya Abernathy APRN Assigned Heart and 01/22/22 JERSEY KNITTER Vascular Provider [address] [place] [address] Hayley German Assigned Surgical 02/12/22 KENNETH Yan Provider [address] [facility] [place] [id number] documented as of this encounter
--- OUTSIDE RECORDS SUMMARY | 2022-06-15 12:38 | XMS_ITS | Encounter Summary ---
:1945 Author Organization [place] Address [address] [place] [address] Care Team Providers Name Role Phone Chastity Montero MD Unavailable [phone] Johnnie Alcocer MD Unavailable Mtm, Ea Complex Unavailable Unavailable Svetlana Osman [facility] Unavailable [phone] Haylie Cheung [facility] Unavailable [phone] Jaiden Holcomb MD Unavailable [phone] Brook Sánchez MD Unavailable Osmar Kidd MD Unavailable Erlinda Barber MD Unavailable Yane Barraza MD Primary Care Provider Gaye Patrick RN Unavailable Unavailable Kenya Abernathy APRN LARRY OPERATOR Unavailable [phone] Hayley German OD Unavailable Reason for Visit Reason Onset Date Comments Medication Refill Refill Request 04/04/2022 LEVETIRACETAM 500MG TABLETS/refused,duplicate,ordered #180,3 refills on 07/07 Encounter Details Date Type Department Care Team Description 04/04/2022 Refill [facility] Erlinda Barber MD Medication Refill; Neurology Clinic [address] [facility] Refi ll Request Loleta 295 (LEVETIRACETAM 500MG 909 [place] [address] TABLETS/refused,ni 3rd Floor bill dangelo [address],3 [place], [place] refill s on 02/25/22) [id number] Social History Tobacco Use Types Packs/Day Years [...] or relatives? How often do you attend advent or More than 4 times per year 05/03/2021 yarsani services? Do you belong to any clubs or No 05/03/2021 organizations such as advent groups, unions, fraternal or athletic groups, or [...] place to sleep or slept in a alf (including now)? Education Answer Date Recorded What is the highest level of school Bachelor's degree (e.g., BA, AB, 01/05/2019 you have completed or the highest BS) degree you have received? Sex Assigned at Date Recorded Female 12/24/2018 12:35 PM CDT documented as of this encounter Plan of Treatment Upcoming Encounters Date Type Specialty Care Team Description 11/15/2022 Virtual Visit Pharm Haylie Gonzalez, [facility] [address] [place] [address] (Wo winter) 11/15/2022 Virtual Visit IM/Peds Yane Barraza MD [address] [facility] [place] [address] (Wo winter) 03/03/2023 Virtual Visit Neurology Erlinda Barber MD [address] [facility] 295 [place] [address] (Wo winter) documented as of this encounter Visit Diagnoses Diagnosis Recurrent seizures (H) 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 documented in this encounter Additional Health Concerns Assessment Noted Time PHQ-9 Depression Total Score: 4 04/12/2019 7:03 AM CDT documented as of this encounter Care Teams Bail Agent Relationship Specialty Start Date End Date Yane Barraza MD PCP - General Internal Medicine 12/08/[address] [facility] [address] [place] [id number] Chastity Montero MD Dermatology 09/23/14 MD Martha [address] [facility] 98 [place] [address] Johnnie Alcocer MD Surgeon General Surgery 03/23/[address] [place], [place] [address] Mtm, Ea Complex 04/23/19 Svetlana Osman Pharmacist Pharmacotherapy 04/23/19 Era, [facility] [address] [place], [place] [id number] Haylie Cheung, Pharmacist Pharmacist 09/11/19 [facility] [address] [place], [place] [id number] Jaiden Holcomb Assigned PCP 05/24/20 MD Jayesh 9[address] [place], [place] [address] Brook Sánchez MD Assigned Infectious 07/04/[address] [place] [address] Disease Provider [place], [place] [address] Osmar Kidd MD Assigned Sleep Provider 09/26/21 [address] [place], [place] [address] Erlinda Barber MD Assigned Neuroscience 10/24/21 [address] [facility] Provider [address] [place], [place] [address] Gaye Patrick, RN Personal Advocate & 01/18/22 Liaison (PAL) Kenya Abernathy APRN Assigned Heart and 01/22/22 LARRY OPERATOR Vascular Provider [address] [place] [address] Hayley German Assigned Surgical 02/12/22 KENNETH Yan Provider [address] [facility] [address] [place] [id number] documented as of this encounter
--- OUTSIDE RECORDS SUMMARY | 2022-06-15 12:38 | XMS_ITS | Encounter Summary ---
:1945 Author Organization [place] Address [address] [facility] [place] [address] Care Team Providers Name Role Phone Chastity Montero MD Unavailable [phone] Johnnie Alcocer MD Unavailable Mtm, Ea Complex Unavailable Unavailable Svetlana Osman [facility] Unavailable [phone] Haylie Cheung [facility] Unavailable [phone] Jaiden Holcomb MD Unavailable Brook Sánchez MD Unavailable Osmar Kidd MD Unavailable Erlinda Barber MD Unavailable Yane Barraza MD Primary Care Provider Haylie Cheung [facility] Unavailable [phone] Gaye Patrick RN Unavailable Unavailable Kenya Abernathy APRN BOTTLE WASHING MACHINE OPERATOR Unavailable [phone] Hayley German OD Unavailable Encounter Details Date Type Department Care Team Description 03/16/2022 Orders Only [facility] Yane Barraza MD Anticoagulation Clin ic [address] [facility] [address] [facility] [address] [place] MD [phone] [place] [address] (Wo rk) Social History [...] or relatives? How often do you attend catholic or More than 4 times per year 05/03/2021 taoism services? Do you belong to any clubs or No 05/03/2021 organizations such as catholic groups, unions, fraternal or athletic groups, or [...] [facility] [address] [facility] [address] (Wo rk) 11/15/2022 Virtual Visit IM/Peds Yane Barraza MD [address] [facility] [place] [address] (Wo rk) 03/03/2023 Virtual Visit Neurology Erlinda Barber MD [address] [facility] 295 [place], [place] [address] (Wo rk) documented as of this encounter Procedures Procedure Name Priority Date/Time Associated Diagnosis Comme nts INR (EXTERNAL Routine 03/16/2022 12:00 AM Results for this RESULT) CDT procedure are i n the results section. documented in this encounter Results INR (External Result) (03/16/2022 12:00 AM CDT) P athologist Signature INR HOME 2.6 2.000 - [facility] Specimen (Source) Anatomical Location Collection Method / Collectio n Time Received Time / Laterality Volume 03/16/2022 Narrative [facility] - 03/16/2022 8:4 9 PM CDT Yane Barraza MD LAB - HIM EXTERNAL RESULT Performing Organization Address City/State/ZIP Code Phon e Number [facility] [address] [place] [address] documented in this encounter Visit Diagnoses Not on filedocumented in this encounter Additional Health Concerns Assessment Noted Time PHQ-9 Depression Total Score: 4 04/12/2019 7:03 AM CDT documented as of this encounter Care Teams Flour Inspector Relationship Specialty Start Date End Date Yane Barraza MD PCP - General Internal Medicine 12/08/21 [address] [facility] [place] [address] Chastity Montero MD Dermatology 09/23/14 MD Martha [address] [facility] 98 [place], [place] [address] Johnnie Alcocer MD Surgeon General Surgery 03/23/[address] [place], [place] [address] Mtm, Ea Complex 04/23/19 Svetlana Osman Pharmacist Pharmacotherapy 04/23/19 Era, [facility] [address] [place] [address] Haylie Cheung, Pharmacist Pharmacist 09/11/19 [facility] [address] [place] [address] Jaiden Holcomb Assigned PCP 05/24/20 MD Jayesh [address] [place] [address] Brook Sánchez MD Assigned Infectious 07/04/[address] [place] [address] ST [address] Disease Provider [place], [place] [address] Osmar Kidd MD Assigned Sleep Provider 09/26/21 [address] [place] [address] Erlinda Barber MD Assigned Neuroscience 10/24/21 420 [facility] Provider [address] [place], [place] [address] Haylie Cheung, Assigned MTM Pharmacist 01/08/22 04/01/22 [facility] [address] [facility] [place] [address] Gaye Patrick, RN Personal Advocate & 01/18/22 Liaison (PAL) Kenya Abernathy APRN Assigned Heart and 01/22/22 BOTTLE WASHING MACHINE OPERATOR Vascular Provider [address] [address] Hayley German Assigned Surgical 02/12/22 KENNETH Yan Provider [address] [facility] [place] [address] documented as of this encounter
--- OUTSIDE RECORDS SUMMARY | 2022-06-15 12:38 | XMS_ITS | Encounter Summary ---
:1945 Author Organization [place] Address [address] [facility] [place] [address] Care Team Providers Name Role Phone Chastity Montero MD Unavailable [phone] Johnnie Alcocer MD Unavailable Mtm, Ea Complex Unavailable Unavailable Svetlana Osman [facility] Unavailable [phone] Haylie Cheung [facility] Unavailable [phone] Jaiden Holcomb MD Unavailable Brook Sánchez MD Unavailable Osmar Kidd MD Unavailable Erlinda Barber MD Unavailable Yane Barraza MD Primary Care Provider Haylie Cheung [facility] Unavailable [phone] Gaye Patrick RN Unavailable Unavailable Kenya Abernathy APRN GOLF COURSE RANGER Unavailable [phone] Hayley German OD Unavailable Encounter Details Date Type Department Care Team Description 03/08/2022 Orders Only [facility] Yane Barraza MD Anticoagulation Clin ic [address] [facility] [address] [facility] [address] [place] [phone] [place] [address] (Wo rk) Social History [...] or relatives? How often do you attend congregational or More than 4 times per year 05/03/2021 synagogue services? Do you belong to any clubs or No 05/03/2021 organizations such as congregational groups, unions, fraternal or athletic groups, or [...] place to sleep or slept in a custodial (including now)? Education Answer Date Recorded What is the highest level of school Bachelor's degree (e.g., BA, AB, 01/05/2019 you have completed or the highest BS) degree you have received? Sex Assigned at Date Recorded Female 12/24/2018 12:35 PM CDT documented as of this encounter Plan of Treatment Upcoming Encounters Date Type Specialty Care Team Description 11/15/2022 Virtual Visit Pharm Haylie Gonzalez, [facility] [address] [facility] [place] [address] (Wo rk) 11/15/2022 Virtual Visit IM/Peds Yane Barraza MD [address] [facility] [place] [address] (Wo rk) 03/03/2023 Virtual Visit Neurology Erlinda Barber MD 420 [facility] 295 [place], [place] [address] (Wo rk) documented as of this encounter Procedures Procedure Name Priority Date/Time Associated Diagnosis Comme nts INR (EXTERNAL Routine 03/08/2022 12:00 AM Results for this RESULT) CDT procedure are i n the results section. documented in this encounter Results (ABNORMAL) INR (External Result) (03/08/2022 12:00 AM CDT) P athologist Signature INR HOME 1.9 (L) 2.000 - [facility] 3[facility]000 [facility] Specimen (Source) Anatomical Location Collection Method / Collectio n Time Received Time / Laterality Volume 03/08/2022 Narrative [facility] - 03/08/2022 3:2 1 PM CDT Yane Barraza MD LAB - HIM EXTERNAL RESULT Performing Organization Address City/State/ZIP Code Phon e Number [facility] [address] [place] [address] documented in this encounter Visit Diagnoses Not on filedocumented in this encounter Additional Health Concerns Assessment Noted Time PHQ-9 Depression Total Score: 4 04/12/2019 7:03 AM CDT documented as of this encounter Care Teams Occupational Rehabilitation Aide Relationship Specialty Start Date End Date Yane Barraza MD PCP - General Internal Medicine 12/08/21 [address] [facility] [address] [place] [id number] Chastity Montero MD Dermatology 09/23/14 MD Martha 420 [facility] 98 [place], [place] [address] Johnnie Alcocer MD Surgeon General Surgery 03/23/[address] [place], [place] [address] Mtm, Ea Complex 04/23/19 Svetlana Osman Pharmacist Pharmacotherapy 04/23/19 Era, [facility] [address] [place] [address] Haylie Cheung, Pharmacist Pharmacist 09/11/19 [facility] [address] [place] [address] Jaiden Holcomb Assigned PCP 05/24/20 MD Jayesh 909 [place], [place] [address] Brook Sánchez MD Assigned Infectious 07/04/[address] [facility] SE Disease Provider [place], [place] [address] Osmar Kidd MD Assigned Sleep Provider 09/26/21 [address] [place] [address] Erlinda Barber MD Assigned Neuroscience 10/24/21 [address] [facility] Provider [address] [place], [place] [address] Haylie Cheung, Assigned MTM Pharmacist 01/08/22 04/01/22 [facility] [address] [facility] [place] [address] Gaye Patrick, RN Personal Advocate & 01/18/22 Liaison (PAL) Kenya Abernathy APRN Assigned Heart and 01/22/22 GOLF COURSE RANGER Vascular Provider [address] [address] Hayley German Assigned Surgical 02/12/22 KENNETH Yan Provider [address] [facility] [place] [id number] documented as of this encounter
--- OUTSIDE RECORDS SUMMARY | 2022-06-15 12:38 | XMS_ITS | Encounter Summary ---
:1945 Author Organization [place] Address [address] [place] [address] Care Team Providers Name Role Phone Chastity Montero MD Unavailable [phone] Johnnie Alcocer MD Unavailable Mtm, Ea Complex Unavailable Unavailable Svetlana Osman [facility] Unavailable [phone] Haylie Cheung [facility] Unavailable [phone] Jaiden Holcomb MD Unavailable Brook Sánchez MD Unavailable Osmar Kidd MD Unavailable Erlinda Barber MD Unavailable Yane Barraza MD Primary Care Provider Gaye Patrick RN Unavailable Unavailable Kenya Abernathy APRN TOY ELECTRIC TRAIN REPAIRER Unavailable [phone] Hayley German OD Unavailable [phone] Reason for Visit Reason Comments Medication Refill Encounter Details Date Type Department Care Team Description 04/08/2022 Refill [facility] Yane Barraza MD Medication Refill [place] [address] [facility] [address] [facility] [address] [place] [address] [address] [place] [address] [phone] Social History Tobacco Use Types Packs/Day Years [...] More than 4 times per year 05/03/2021 congregational services? Do you belong to any clubs [...] this encounter Miscellaneous Notes Telephone Encounter - Nori Horne RN - 04/08/2022 12:55 PM CDT Already approved metoprolol succinate ER (TOPROL XL) 25 MG 24 hr tablet (90 tablets with 1 refill on01/11/2022). Refill request too soon. Should have refills on file. Nori Heart RN Patient Advocate Liaison (PAL) [facility] documented in this encounter Plan of Treatment Upcoming Encounters Date Type Specialty Care Team Description 11/15/2022 Virtual Visit Pharm D Haylie Cheung, [facility] [address] [facility] [place] [address] (Lena max) 11/15/2022 Virtual Visit IM/PedYane Muir MD [address] [facility] [place] [address] (Lena max) 03/03/2023 Virtual Visit Neurology Erlinda Barber MD 420 [facility] 295 [place] [address] (Wo rk) documented as of this encounter Visit Diagnoses Diagnosis Atrial fibrillation, unspecified type (H ) documented in this encounter Additional Health Concerns Assessment Noted Time PHQ-9 Depression Total Score: 4 04/12/2019 7:03 AM CDT documented as of this encounter Care Teams Triage Clinician Relationship Specialty Start Date End Date Yane Barraza MD PCP - General Internal Medicine 12/08/21 [address] [facility] [place] [address] Chastity Montero MD Dermatology 09/23/14 MD Martha 420 [facility] 98 [place], [place] [address] Johnnie Alcocer MD Surgeon General Surgery 03/23/[address] [place], [place] [address] Mtm, Ea Complex 04/23/19 Svetlana Osman Pharmacist Pharmacotherapy 04/23/19 Era, [facility] [address] [place] [address] Haylie Cheung, Pharmacist Pharmacist 09/11/19 [facility] [address] [place] [address] Jaiden Holcomb Assigned PCP 05/24/20 MD Jayesh 909 [place] [address] Brook Sánchez MD Assigned Infectious 07/04/[address] [place] [address] [place] [address] Osmar Kidd MD Assigned Sleep Provider 09/26/21 [address] [place] [address] Erlinda Barber MD Assigned Neuroscience 10/24/21 420 [facility] Provider [address] [place], [place] [address] Gaye Patrick, RN Personal Advocate & 01/18/22 Liaison (PAL) Kenya Abernathy APRN Assigned Heart and 01/22/22 TOY ELECTRIC TRAIN REPAIRER Vascular Provider [address] [place] [address] Hayley German Assigned Surgical 02/12/22 KENNETH Yan Provider [address] [facility] [place] [id number] documented as of this encounter
--- OUTSIDE RECORDS SUMMARY | 2022-06-15 12:38 | XMS_ITS | Encounter Summary ---
:1945 Author Organization [place] Address [address] [place] [address] Care Team Providers Name Role Phone Chastity Montero MD Unavailable [phone] Johnnie Alcocer MD Unavailable Mtm, Ea Complex Unavailable Unavailable Svetlana Osman [facility] Unavailable [phone] Haylie Cheung [facility] Unavailable [phone] Jaiden Holcomb MD Unavailable [phone] Brook Sánchez MD Unavailable Osmar Kidd MD Unavailable Erlinda Barber MD Unavailable Yane Barraza MD Primary Care Provider Gaye Patrick RN Unavailable Unavailable Kenya Abernathy APRN [facility] Unavailable [phone] Hayley German OD Unavailable [phone] Reason for Visit Reason Onset Date Comments Refill Request 04/07/2022 Refused. Encounter Details Date Type Department Care Team Description 04/07/[address] [facility] Erlinda Barber MD Refill Request Neurology Clinic [address] [place] [address] (Ref used.) [place] [address] [place] [address] [place] [phone] Social History Tobacco Use Types Packs/Day Years [...] or relatives? How often do you attend anglican or More than 4 times per year 05/03/2021 tenriism services? Do you belong to any clubs or No 05/03/2021 organizations such as anglican groups, unions, fraternal or athletic groups, or [...] this encounter Miscellaneous Notes Telephone Encounter - Pamela German RN - 04/09/2022 11:36 AM CDT levETIRAcetam (KEPPRA) 500 MG tablet Re-sent 04/08/22. confirmed by pharm Telephone Encounter - Gaye Patrick RN - 04/08/2022 3:13 PM CDT Called [facility]. They state they never received a prescription from 02/25/22. Please resend prescription. Thanks! 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 documented in this encounter Additional Health Concerns Assessment Noted Time PHQ-9 Depression Total Score: 4 04/12/2019 7:03 AM CDT documented as of this encounter Care Teams Master Cosmetologist Relationship Specialty Start Date End Date Yane Barraza MD PCP - General Internal Medicine 12/08/[address] [place] [address] [address] [place] [id number] Chastity Montero MD Dermatology 09/23/14 MD Martha 420 [facility] 98 [place], [place] [address] Johnnie Alcocer MD Surgeon General Surgery 03/23/[address] [place], [place] [address] Mtkinsey, Ea Complex 04/23/19 Svetlana Osman Pharmacist Pharmacotherapy 04/23/19 Era, [facility] [address] [place] [address] Haylie Cheung, Pharmacist Pharmacist 09/11/19 [facility] [address] [place] [id number] Jaiden Holcomb Assigned PCP 05/24/20 MD Jayesh [address] [place] [address] 224825 Brook Sánchez MD Assigned Infectious 07/04/21 [address] [facility] SE Disease Provider [place], [place] [address] Osmar Kidd MD Assigned Sleep Provider 09/26/21 [address] [place], [place] [address] Erlinda Barber MD Assigned Neuroscience 10/24/21 420 [facility] MMC Provider 295 [place], [place] [address] Gaye Patrick, RN Personal Advocate & 01/18/22 Liaison (PAL) Kenya Abernathy APRN Assigned Heart and 01/22/22 [facility] Vascular Provider [address] [place] [address] Hayley German Assigned Surgical 02/12/22 KENNETH Yan Provider [address] [facility] [address] [id number] documented as of this encounter
--- OUTSIDE RECORDS SUMMARY | 2022-06-15 12:38 | XMS_ITS | Encounter Summary ---
:1945 Author Organization [place] Address [address] [facility] [place] [address] Care Team Providers Name Role Phone Chastity Montero MD Unavailable [phone] Johnnie Alcocer MD Unavailable Mtm, Ea Complex Unavailable Unavailable Svetlana Osman [facility] Unavailable [phone] Haylie Cheung [facility] Unavailable [phone] Jaiden Holcomb MD Unavailable Brook Sánchez MD Unavailable Osmar Kidd MD Unavailable Erlinda Barber MD Unavailable Yane Barraza MD Primary Care Provider Haylie Cheung [facility] Unavailable [phone] Gaye Patrick RN Unavailable Unavailable Kenya Abernathy APRN PICK UP DRIVER Unavailable [phone] Hayley German OD Unavailable Encounter Details Date Type Department Care Team Description 03/29/2022 Orders Only [facility] Yane Barraza MD Anticoagulation Clin ic 4[address] [facility] [address] [facility] [address] [place] [phone] [place] [id number] (Wo rk) Social History Tobacco Use Types [...] or relatives? How often do you attend gnosticist or More than 4 times per year 05/03/2021 restorationism services? Do you belong to any clubs or No 05/03/2021 organizations such as gnosticist groups, unions, fraternal or athletic groups, or [...] place to sleep or slept in a fdc (including now)? Education Answer Date Recorded What is the highest level of school Bachelor's degree (e.g., BA, AB, 01/05/2019 you have completed or the highest BS) degree you have received? Sex Assigned at Date Recorded Female 12/24/2018 12:35 PM CDT documented as of this encounter Plan of Treatment Upcoming Encounters Date Type Specialty Care Team Description 11/15/2022 Virtual Visit Pharm Haylie Gonzalez, [facility] [address] [place] [address] (Wo rk) 11/15/2022 Virtual Visit IM/Peds Yane Barraza MD [address] [facility] [place] [address] (Wo rk) 03/03/2023 Virtual Visit Neurology Erlinda Barber MD 420 [facility] 295 [place], [place] [address]75 (Wo rk) documented as of this encounter Procedures Procedure Name Priority Date/Time Associated Diagnosis Comme nts INR (EXTERNAL Routine 03/29/2022 12:00 AM Results for this RESULT) CDT procedure are i n the results section. documented in this encounter Results INR (External Result) (03/29/2022 12:00 AM CDT) P athologist Signature INR HOME 2.5 2.000 - [facility] Specimen (Source) Anatomical Location Collection Method / Collectio n Time Received Time / Laterality Volume 03/29/2022 Narrative [facility] - 03/29/2022 1:2 5 PM CDT Yane Barraza MD LAB - HIM EXTERNAL RESULT Performing Organization Address City/State/ZIP Code Phon e Number [facility] [address] [place] [address] documented in this encounter Visit Diagnoses Not on filedocumented in this encounter Additional Health Concerns Assessment Noted Time PHQ-9 Depression Total Score: 4 04/12/2019 7:03 AM CDT documented as of this encounter Care Teams Economics Lecturer Relationship Specialty Start Date End Date Yane Barraza MD PCP - General Internal Medicine 12/08/21 [address] [facility] [place] [address] Chastity Montero MD Dermatology 09/23/14 MD Martha 420 [facility] 98 [place], [place] [address] Johnnie Alcocer MD Surgeon General Surgery 03/23/[address] [place], [place] [address] Mtm, Ea Complex 04/23/19 Svetlana Osman Pharmacist Pharmacotherapy 04/23/19 Era, [facility] [address] [place] [address] Haylie Cheung, Pharmacist Pharmacist 09/11/19 [facility] [address] [place] [address] Jaiden Holcomb Assigned PCP 05/24/20 MD Jayesh [address] [place] [address] Brook Sánchez MD Assigned Infectious 07/04/[address] [place] [address] ST [address] Disease Provider [place], [place] [address] Osmar Kidd MD Assigned Sleep Provider 09/26/21 [address] [place] [address] Erlinda Barber MD Assigned Neuroscience 10/24/21 [address] [facility] MMC Provider [address] [place], [place] [address] Haylie Cheung, Assigned MTM Pharmacist 01/08/22 04/01/22 [facility] [address] [facility] [place] [address] Gaye Patrick, RN Personal Advocate & 01/18/22 Liaison (PAL) Kenya Abernathy APRN Assigned Heart and 01/22/22 PICK [employer] DRIVER Vascular Provider [address] [address] Hayley German Assigned Surgical 02/12/22 KENNETH Yan Provider [address] [facility] [place] [address] documented as of this encounter
--- OUTSIDE RECORDS SUMMARY | 2022-06-15 12:38 | XMS_ITS | Encounter Summary ---
:1945 Author Organization [place] Address [address] [facility] [place] [address] Care Team Providers Name Role Phone Chastity Montero MD Unavailable [phone] Johnnie Alcocer MD Unavailable Mtm, Ea Complex Unavailable Unavailable Svetlana Osman [facility] Unavailable [phone] Haylie Cheung [facility] Unavailable [phone] Jaiden Holcomb MD Unavailable Brook Sánchez MD Unavailable Osmar Kidd MD Unavailable Erlinda Barber MD Unavailable Yane Barraza MD Primary Care Provider Gaye Patrick RN Unavailable Unavailable Kenya Abernathy APRN OENOLOGIST Unavailable [phone] Hayley German OD Unavailable Haylie Cheung [facility] Unavailable [phone] Encounter Details Date Type Department Care Team Description 04/14/2022 Orders Only [facility] Yane Barraza MD Anticoagulation Clin ic [address] [facility] [address] [place] [phone] [address] [address] (Wo rk) Social History [...] or relatives? How often do you attend latter-day or More than 4 times per year 05/03/2021 congregational services? Do you belong to any clubs or No 05/03/2021 organizations such as latter-day groups, unions, fraternal or athletic groups, or [...] place to sleep or slept in a [place] (including now)? Education Answer Date Recorded What is the highest level of school Bachelor's degree (e.g., BA, AB, 01/05/2019 you have completed or the highest BS) degree you have received? Sex Assigned at Date Recorded Female 12/24/2018 12:35 PM CDT documented as of this encounter Plan of Treatment Upcoming Encounters Date Type Specialty Care Team Description 11/15/2022 Virtual Visit Pharm Haylie Gonzalez, [facility] [address] [facility] [place] [address] (Wo rk) 11/15/2022 Virtual Visit IM/Peds Yane Barraza MD [address] [facility] [place] [address] (Wo rk) 03/03/2023 Virtual Visit Neurology Erlinda Barber MD 420 [facility] 295 [place], [place] [address] (Wo rk) documented as of this encounter Procedures Procedure Name Priority Date/Time Associated Diagnosis Comme nts INR (EXTERNAL Routine 04/14/2022 12:00 AM Results for this RESULT) CDT procedure are i n the results section. documented in this encounter Results INR (External Result) (04/14/2022 12:00 AM CDT) P athologist Signature INR HOME 2.5 2.000 - [facility] Specimen (Source) Anatomical Location Collection Method / Collectio n Time Received Time / Laterality Volume 04/14/2022 Narrative [facility] - 04/14/2022 3:0 6 PM CDT Yane Barraza MD LAB - HIM EXTERNAL RESULT Performing Organization Address City/State/ZIP Code Phon e Number [facility] [address] [place] [address] documented in this encounter Visit Diagnoses Not on filedocumented in this encounter Additional Health Concerns Assessment Noted Time PHQ-9 Depression Total Score: 4 04/12/2019 7:03 AM CDT documented as of this encounter Care Teams Final Assembly Inspector Relationship Specialty Start Date End Date Yane Barraza MD PCP - General Internal Medicine 12/08/21 [address] [facility] [place] [address] Chastity Montero MD Dermatology 09/23/14 MD Martha 420 [facility] 98 [place], [place] [address] Johnnie Alcocer MD Surgeon General Surgery 03/23/[address] [place], [place] [address] Mtm, Ea Complex 04/23/19 Svetlana Osman Pharmacist Pharmacotherapy 04/23/19 Era, [facility] [address] [place] [address] Haylie Cheung, Pharmacist Pharmacist 09/11/19 [facility] [address] [place] [address] Jaiden Holcomb Assigned PCP 05/24/20 MD Jayesh [address] [place] [id number] Brook Sánchez MD Assigned Infectious 07/04/[address] [place] [address] ST SE Disease Provider [place], [place] [address] Osmar Kidd MD Assigned Sleep Provider 09/26/21 [address] [place] [address] Erlinda Barber MD Assigned Neuroscience 10/24/[address] [place] [address] MMC Provider [address] [place], [place] [address] Gaye Patrick, RN Personal Advocate & 01/18/22 Liaison (PAL) Kenya Abernathy APRN Assigned Heart and 01/22/22 OENOLOGIST Vascular Provider [address] [place] [address] Hayley German Assigned Surgical 02/12/22 KENNETH Yan Provider [address] [facility] [place] [phone] Haylie Cheung, Assigned MTM Pharmacist 04/13/22 [facility] [address] [facility] [place] [address] documented as of this encounter
--- OUTSIDE RECORDS SUMMARY | 2022-06-15 12:38 | XMS_ITS | Encounter Summary ---
:1945 Author Organization [place] Address [address] [facility] [place] [address] Care Team Providers Name Role Phone Chastity Montero MD Unavailable [phone] Johnnie Alcocer MD Unavailable Mtm, Ea Complex Unavailable Unavailable Svetlana Osman [facility] Unavailable [phone] Haylie Cheung [facility] Unavailable [phone] Jaiden Holcomb MD Unavailable [phone] Brook Sánchez MD Unavailable Osmar Kidd MD Unavailable Erlinda Barber MD Unavailable Yane Barraza MD Primary Care Provider Gaye Patrick RN Unavailable Unavailable Kenya Abernathy APRN DOCTOR OF AUDIOLOGY Unavailable [phone] Hayley German OD Unavailable [phone] Haylie Cheung [facility] Unavailable [phone] Encounter Details Date Type Department Care Team Description 04/14/2022 Anticoagulation [facility] Ruben Wagner history of pulmonary embolism (Primary Dx); Therapy Visit Anticoagulation Clin seth Petersen RN alf current use of ant icoagulant therapy; [address] Atrial fibrillation, unspeci fied type (H) [place] [phone] Social History Tobacco Use Types Packs/Day Years [...] or relatives? How often do you attend oriental orthodox or More than 4 times per year 05/03/2021 confucianism services? Do you belong to any clubs or No 05/03/2021 organizations such as oriental orthodox groups, unions, fraternal or athletic groups, or [...] place to sleep or slept in a senior living (including now)? Education Answer Date Recorded What is the highest level of school Bachelor's degree (e.g., BA, AB, 01/05/2019 you have completed or the highest BS) degree you have received? Sex Assigned at Date Recorded Female 12/24/2018 12:35 PM CDT documented as of this encounter Progress Notes Nicola Wagner RN - 04/14/2022 2:35 PM CDT ANTICOAGULATION MANAGEMENT Charlette Velma Gosevennithin 77 year old female is on warfarin with therapeutic INR result. (Goal INR 2.0-3.0) Recent labs: (last 7 days) 04/14/22 1435 INR 2.5* ASSESSMENT ??? Source(s): Chart Review and Home Care/Facility Nurse ??? Warfarin doses taken: Warfarin taken as instructed ??? Diet: No new diet changes identified ??? New illness, injury, or hospitalization: No ??? Medication/supplement changes: None noted ??? Signs or symptoms of bleeding or clotting: No ??? Previous INR: Therapeutic last 2(+) visits ??? Additional findings: Pt had trouble calling in result to [facility] today. PLAN Recommended plan for no diet, medication or health factor changes affecting INR Dosing Instructions: Continue your current warfarin dose with next INR in 2 weeks Summary As of 04/14/2022 Full warfarin instructions: 5 mg every Sat; 10 mg all other days Next INR check: 04/28/2022 Telephone call with Charlette who verbalizes understanding and agrees to plan Patient to recheck with home meter Education provided: Goal range and significance of current result Plan made per [facility] anticoagulation protocol Nicola Wagner RN Anticoagulation Clinic 04/14/2022 Anticoagulation Episode Summary Current INR goal: 2.0-3.0 TTR: 70.4 % (1 y) Target end date: Indefinite Send INR reminders to: [facility] Indications 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 Declined MBE 04/14/2022. She may ask for it in the future. Anticoagulation Care Providers Provider Role Specialty Phone number Galdino Valdez MD Referring Family Medicine [phone] Jaiden Holcomb MD Referring Internal Medicine [phone] Yane Barraza MD Referring Internal Medicine [phone] Lucero Stevenson MD Responsible Internal Medicine [phone] documented in this encounter Plan of Treatment Upcoming Encounters Date Type Specialty Care Team Description 11/15/2022 Virtual Visit Pharm Haylie Gonzalez, [facility] [address] [facility] [place] [address] (Lnea max) 11/15/2022 Virtual Visit [place] [address] [place] [address] [place] [address] (Lena max) 03/03/2023 Virtual Visit Neurology Erlinda Barber MD 420 [facility] 295 [place], [place] [address] (Wo rk) documented as of this encounter Procedures Procedure Name Priority Date/Time Associated Diagnosis Comme nts INR (EXTERNAL Routine 04/14/2022 2:35 PM Results for this RESULT) CDT procedure are i n the results section. documented in this encounter Results (ABNORMAL) INR (External Result) (04/14/2022 2:35 PM CDT) athologist Signature INR (External) 2.5 (A) 0.9 - 1.1 EXTERNAL LAB Specimen (Source) Anatomical Collection Method Collection Time Re ceived Time Location / / Volume Laterality Blood 04/14/2022 2:35 PM CDT Resulting Agency Comment Testing performed at home by patient wit h [employer] home monitoring [employer] Patient Reported LAB - HIM EXTERNAL RESULT Performing Organization Address City/State/ZIP Code Phon e Number EXTERNAL LAB EXTERNAL LAB External Lab documented in this encounter Visit Diagnoses Diagnosis 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 embolism - Primary alf current use of anticoagulant t herapy Atrial fibrillation, unspecified type (H ) documented in this encounter Additional Health Concerns Assessment Noted Time PHQ-9 Depression Total Score: 4 04/12/2019 7:03 AM CDT documented as of this encounter Care Teams Telex Operator Relationship Specialty Start Date End Date Yane Barraza MD PCP - General Internal Medicine 12/08/21 [address] [facility] [address] [place], [place] [phone] Chastity Montero MD Dermatology 09/23/14 MD Martha 420 [facility] 98 [place], [place] [address] Johnnie Alcocer MD Surgeon General Surgery 03/23/[address] [place] [address] Mtkinsey, Ea Complex 04/23/19 Svetlana Osman Pharmacist Pharmacotherapy 04/23/19 [facility] [address] [place] [address] Haylie Cheung, Pharmacist Pharmacist 09/11/19 [facility] [address] [place], [place] [phone] Jaiden Holcomb Assigned PCP 05/24/20 MD Jayesh [address]09 [place], [place] [address] Brook Sánchez MD Assigned Infectious 07/04/[address] [place] [address] SE Disease Provider [place], [place] [address] Osmar Kidd MD Assigned Sleep Provider 09/26/21 [address] [place], [place] [address] Erlinda Barber MD Assigned Neuroscience 10/24/[address] MMC Provider [address] [place], [place] [address] Gaye Patrick, RN Personal Advocate & 01/18/22 Liaison (PAL) Kenya Abernathy APRN Assigned Heart and 01/22/22 DOCTOR OF AUDIOLOGY Vascular Provider [address] [place] [address] Hayley German Assigned Surgical 02/12/22 Farrah, OD Provider [address] [facility] [place] [address] Haylie Cheung, Assigned MTM Pharmacist 04/13/22 [facility] [address] [place] [phone] documented as of this encounter
--- OUTSIDE RECORDS SUMMARY | 2022-06-15 12:38 | XMS_ITS | Encounter Summary ---
:1945 Author Organization [place] Address [address] [facility] [place] [address] Care Team Providers Name Role Phone Chastity Montero MD Unavailable [phone] Johnnie Alcocer MD Unavailable Mtm, Ea Complex Unavailable Unavailable Svetlana Osman [facility] Unavailable [phone] Haylie Cheung [facility] Unavailable [phone] Jaiden Holcomb MD Unavailable [phone] Brook Sánchez MD Unavailable Osmar Kidd MD Unavailable Erlinda Barber MD Unavailable Yane Barraza MD Primary Care Provider Haylie Cheung [facility] Unavailable [phone] Gaye Patrick RN Unavailable Unavailable Kenya Abernathy APRN MANAGER PSYCHIATRY Unavailable [phone] Hayley German OD Unavailable [phone] Encounter Details Date Type Department Care Team Description 03/29/2022 Anticoagulation [facility] Latia Huang history of pulmonary embolism (Primary Dx); Therapy Visit Anticoagulation Clin ic E, RN care home current use of ant icoagulant therapy; [address] Atrial fibrillation, unspeci fied type (H) [place] [address] Social History Tobacco Use Types [...] or relatives? How often do you attend cheondoism or More than 4 times per year 05/03/2021 methodist services? Do you belong to any clubs or No 05/03/2021 organizations such as cheondoism groups, unions, fraternal or athletic groups, or [...] to sleep or slept in a senior care (including now)? Education Answer Date Recorded What is the highest level of school Bachelor's degree (e.g., BA, AB, 01/05/2019 you have completed or the highest BS) degree you have received? Sex Assigned at Date Recorded Female 12/24/2018 12:35 PM CDT documented as of this encounter Progress Notes Latia Huang RN - 03/29/2022 1:39 PM CDT ANTICOAGULATION MANAGEMENT Charlette Brush 77 year old female is on warfarin with therapeutic INR result. (Goal INR 2.0-3.0) Recent labs: (last 7 days) 03/29/22 0000 INR 2.5 ASSESSMENT ??? Source(s): Chart Review and Patient/Caregiver [...] INR in 2 weeks Summary As of 03/29/2022 Full warfarin instructions: 5 mg every Sat; 10 mg all other days Next INR check: 04/12/2022 Telephone call with Charlette who verbalizes understanding and agrees to plan Patient to recheck with home meter Education provided: Please call back if any changes to your diet, medications or how you've been taking warfarin Plan made per [facility] anticoagulation protocol Latia Huang, RN Anticoagulation Clinic 03/29/2022 Anticoagulation Episode Summary Current INR goal: 2.0-3.0 TTR: 68.0 % (1 y) Target end date: Indefinite Send INR reminders to: ANTICOAG HOME MONITORING Indications 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] care home current use of 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 [Z79.01] Atrial fibrillation unspecified type (H) [I48.91] Comments: home monitor start up [employer] 02/07/22 Anticoagulation Care Providers Provider Role Specialty Phone number Galdino Valdez MD Referring Family Medicine [phone] Jaiden Holcomb MD Referring Internal Medicine [phone] Yane Barraza MD Referring Internal Medicine [phone] Lucero Stevenson MD Responsible Internal Medicine [phone] documented in this encounter Plan of Treatment Upcoming Encounters Date Type Specialty Care Team Description 11/15/2022 Virtual Visit Pharm Haylie Gonzalez, [facility] [address] [facility] [place] [address] (Wo ) 11/15/2022 Virtual Visit IM/Peds Yane Barraza MD [address] [facility] [place] [address] (Wo winter) 03/03/2023 Virtual Visit Neurology Erlinda Barber MD [address] [facility] 295 [place] [address] (Wo rk) documented as of this encounter Visit Diagnoses Diagnosis 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 embolism - 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 current use of anticoagulant t herapy Atrial fibrillation, unspecified type (H ) documented in this encounter Additional Health Concerns Assessment Noted Time PHQ-9 Depression Total Score: 4 04/12/2019 7:03 AM CDT documented as of this encounter Care Teams Production Operations Manager Relationship Specialty Start Date End Date Yane Barraza MD PCP - General Internal Medicine 12/08/21 [address] [facility] [address] [place], [place] [id number] Chastity Montero MD Dermatology 09/23/14 MD Martha [address] [place] [address] 98 [place] [address] Johnnie Alcocer MD Surgeon General Surgery 03/23/[address] [place], [place] [address] Mtm, Ea Complex 04/23/19 Svetlana Osman Pharmacist Pharmacotherapy 04/23/19 Era, [facility] [address] [place], [place] [id number] Haylie Cheung, Pharmacist Pharmacist 09/11/19 [facility] [address] [place] [id number] Jaiden Holcomb Assigned PCP 05/24/20 MD Jayesh [address] [place] [address]28345 Brook Sánchez MD Assigned Infectious 07/04/[address] [place] [address] Disease Provider [place], [place] [address] Osmar Kidd MD Assigned Sleep Provider 09/26/21 [address] [place] [address] Erlinda Barber MD Assigned Neuroscience 10/24/[address] [facility] Provider [address] [place] [address] Haylie Cheung, Assigned MTM Pharmacist 01/08/22 04/01/22 [facility] [address] [facility] [place] [id number] Gaye Patrick, RN Personal Advocate & 01/18/22 Liaison (PAL) Kenya Abernathy APRN Assigned Heart and 01/22/22 MANAGER PSYCHIATRY Vascular Provider [address] [id number] Hayley [place] Assigned Surgical 02/12/22 KENNETH Yan Provider [address] [facility] [place] [id number] documented as of this encounter
--- OUTSIDE RECORDS SUMMARY | 2022-06-15 12:38 | XMS_ITS | Encounter Summary ---
:1945 Author Organization [place] Address [address] [facility] [address] Care Team Providers Name Role Phone Chastity Montero MD Unavailable [phone] Johnnie Alcocer MD Unavailable Mtm, Ea Complex Unavailable Unavailable Svetlana Osman [facility] Unavailable [phone] Haylie Cheung [facility] Unavailable [phone] Jaiden Holcomb MD Unavailable Brook Sánchez MD Unavailable Osmar Kidd MD Unavailable Erlinda Barber MD Unavailable Yane Barraza MD Primary Care Provider Haylie Cheung [facility] Unavailable [phone] Gaye Patrick RN Unavailable Unavailable Kenya Abernathy APRN CHANNEL INSTALLER Unavailable [phone] Hayley [place] OD Unavailable [phone] Encounter Details Date Type Department Care Team Description 03/17/2022 Anticoagulation [facility] Fadumo Davies history of pulmonary embolism (Primary Dx); Therapy Visit Anticoagulation A, RN manager terminal c urrent use of 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; Clinic Atrial fibrillation, unspeci fied type (H) [address] [place] [address] Social History Tobacco Use Types [...] or relatives? How often do you attend amish or More than 4 times per year 05/03/2021 gnosticism services? Do you belong to any clubs or No 05/03/2021 organizations such as amish groups, unions, fraternal or athletic groups, or [...] encounter Progress Notes Fadumo Davies RN - 03/17/2022 8:22 AM CDT ANTICOAGULATION MANAGEMENT Charlette Brush 77 year old female is on warfarin with therapeutic INR result. (Goal INR 2.0-3.0) Recent labs: (last 7 days) 03/16/22 0000 INR 2.6 ASSESSMENT ??? Source(s): Chart [...] INR in 2 weeks Summary As of 03/17/2022 Full warfarin instructions: 5 mg every Sat; 10 mg all other days Next INR check: 03/30/2022 Telephone call with Charlette who verbalizes understanding and agrees to plan Patient to recheck with home meter Education provided: Please call back if any changes to your diet, medications or how you've been taking warfarin Plan made per [facility] anticoagulation protocol Fadumo Davies, RN Anticoagulation Clinic 03/17/2022 Anticoagulation Episode Summary Current INR goal: 2.0-3.0 TTR: 67.9 % (1 y) Target end date: Indefinite Send INR reminders to: [facility] Indications 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] manager terminal current use of 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 [Z79.01] Atrial fibrillation unspecified type (H) [I48.91] Comments: home monitor start up 02/07/22 Anticoagulation Care Providers Provider Role Specialty Phone number Galdino Valdez MD Referring Family Medicine [phone] Jaiden Holcomb MD Referring Internal Medicine [phone] Yane Barraza MD Referring Internal Medicine [phone] Lucero Stevenson MD Responsible Internal Medicine [phone] documented in this encounter Plan of Treatment Upcoming Encounters Date Type Specialty Care Team Description 11/15/2022 Virtual Visit Pharm Haylie Gonzalez, [facility] [address] [facility] [place] [address] (Wo ) 11/15/2022 Virtual Visit IM/Peds Yane Barraza MD [address] [facility] [place] [address] (Wo winter) 03/03/2023 Virtual Visit Neurology Erlinda Barber MD [address] [facility] 295 [place] [address] (Wo rk) documented as of this encounter Visit Diagnoses Diagnosis 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 embolism - Primary half-way current use of anticoagulant t herapy Atrial fibrillation, unspecified type (H ) documented in this encounter Additional Health Concerns Assessment Noted Time PHQ-9 Depression Total Score: 4 04/12/2019 7:03 AM CDT documented as of this encounter Care Teams Line Tester Relationship Specialty Start Date End Date Yane Barraza MD PCP - General Internal Medicine 12/08/[address] [facility] [address] [place], [place] [phone] Chastity Montero MD Dermatology 09/23/14 MD Martha [address] [place] [address] 98 [place] [address] Johnnie Alcocer MD Surgeon General Surgery 03/23/[address] [place], [place] [address] Mtm, Ea Complex 04/23/19 Svetlana Osman Pharmacist Pharmacotherapy 04/23/19 Era, [facility] [address] [place], [place] [phone] Haylie Cheung, Pharmacist Pharmacist 09/11/19 [facility] [address] [place] [phone] Jaiden Holcomb Assigned PCP 05/24/20 MD Jayesh [address] [place] [address]165 Brook Sánchez MD Assigned Infectious 07/04/[address] [place] [address] Disease Provider [place], [place] [address] Osmar Kidd MD Assigned Sleep Provider 09/26/21 [address] [place] [address] Erlinda Barber MD Assigned Neuroscience 10/24/[address] [facility] Provider [address] [place] [address] Haylie Cheung, Assigned MTM Pharmacist 01/08/22 04/01/22 [facility] [address] [facility] [place] [id number] Gaye Patrick, RN Personal Advocate & 01/18/22 Liaison (PAL) Kenya Abernathy APRN Assigned Heart and 01/22/22 CHANNEL INSTALLER Vascular Provider [address] [address] Hayley [place] Assigned Surgical 02/12/22 KENNETH Yan Provider [address] [facility] [place] [id number] documented as of this encounter
--- OUTSIDE RECORDS SUMMARY | 2022-06-15 12:38 | XMS_ITS | Encounter Summary ---
:1945 Author Organization [place] Address [address] [place] [address] Care Team Providers Name Role Phone Chastity Montero MD Unavailable [phone] Johnnie Alcocer MD Unavailable Mtm, Ea Complex Unavailable Unavailable Svetlana Osman [facility] Unavailable [phone] Haylie Cheung [facility] Unavailable [phone] Jaiden Holcomb MD Unavailable Brook Sánchez MD Unavailable Osmra Kidd MD Unavailable Erlinda Barber MD Unavailable Yane Barraza MD Primary Care Provider Gaye Patrick RN Unavailable Unavailable Kenya Abernathy APRN MONTESSORI LEAD TEACHER Unavailable [phone] Hayley German OD Unavailable Reason for Visit Reason Comments Medication Refill Encounter Details Date Type Department Care Team Description 04/08/2022 [facility] Erlinda Barber MD Medication Refill Neurology Clinic [address] [facility] 295 [place] [address] [place] [address] [facility] Floor [place], [place] [phone] Social History Tobacco Use Types Packs/Day Years [...] or relatives? How often do you attend muslim or More than 4 times per year 05/03/2021 yazdanism services? 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 documented in this encounter Additional Health Concerns Assessment Noted Time PHQ-9 Depression Total Score: 4 04/12/2019 7:03 AM CDT documented as of this encounter Care Teams Camp Counselor Relationship Specialty Start Date End Date Yane Barraza MD PCP - General Internal Medicine 12/08/21 [address] [facility] [place] [address] Chastity Montero MD Dermatology 09/23/14 MD Martha [address] [facility] 98 [place], [place] [address] Johnnie Alcocer MD Surgeon General Surgery 03/23/[address] [place], [place] [address] Mtm, Ea Complex 04/23/19 Svetlana Osman Pharmacist Pharmacotherapy 04/23/19 Era, [facility] [address] [facility] [place] [place] [address] Haylie Cheung, Pharmacist Pharmacist 09/11/19 [facility] [address] [facility] [place] [place] [address] Jaiden Holcomb Assigned PCP 05/24/20 MD Jayesh 909 [place], [place] [address] Brook Sánchez MD Assigned Infectious 07/04/[address] [place] [address] Disease Provider [place], [place] [address] Osmar Kidd MD Assigned Sleep Provider 09/26/21 [address] [place], [place] [address] Erlinda Barber MD Assigned Neuroscience 10/24/21 [address] [facility] Provider 295 [place], [place] [address] Gaye Patrick, RN Personal Advocate & 01/18/22 Liaison (PAL) Kenya Abernathy APRN Assigned Heart and 01/22/22 MONTESSORI LEAD TEACHER Vascular Provider [address] [place] [address] Hayley [place] Assigned Surgical 02/12/22 KENNETH Yan Provider [address] [facility] [place] [address] documented as of this encounter
--- OUTSIDE RECORDS SUMMARY | 2022-06-15 12:38 | XMS_ITS | Encounter Summary ---
:1945 Author Organization [place] Address [address] [place] [address] Care Team Providers Name Role Phone Chastity Montero MD Unavailable [phone] Johnnie Alcocer MD Unavailable Mtm, Ea Complex Unavailable Unavailable Svetlana Osman [facility] Unavailable [phone] Haylie Cheung [facility] Unavailable [phone] Jaiden Holcomb MD Unavailable Brook Sánchez MD Unavailable Osmar Kidd MD Unavailable Erlinda Barber MD Unavailable Yane Barraza MD Primary Care Provider Haylie Cheung [facility] Unavailable [phone] Gaye Patrick RN Unavailable Unavailable Kenya Abernathy APRN COLLEGE PRESIDENT Unavailable [phone] Hayley German OD Unavailable [phone] Reason for Visit Reason Comments Medication Refill Encounter Details Date Type Department Care Team Description 03/07/2022 Refill M [facility] Wilbur Holcomb Medication Refill Yarelis Mcconnell MD [address] [address] [address] [place] [address] [phone] Social History Tobacco Use Types Packs/Day Years [...] or relatives? How often do you attend temple or More than 4 times per year 05/03/2021 congregational services? Do you belong to any clubs or No 05/03/2021 organizations such as temple groups, unions, fraternal or athletic groups, or [...] place to sleep or slept in a group home (including now)? Education Answer Date Recorded What is the highest level of school Bachelor's degree (e.g., BA, AB, 01/05/2019 you have completed or the highest BS) degree you have received? Sex Assigned at Date Recorded Female 12/24/2018 12:35 PM CDT documented as of this encounter Miscellaneous Notes Telephone Encounter - Latia Oneil RN - 03/08/2022 10:46 AM CDT Pt has appointment scheduled Prescription approved per [facility] Refill Protocol. Latia Oneil RN, BSN [facility] documented in this encounter Plan of Treatment Upcoming Encounters Date Type Specialty Care Team Description 11/15/2022 Virtual Visit Pharm D Haylie Cheung, [facility] [address] [facility] [place] [address] (Lena max) 11/15/2022 Virtual Visit MICHAEL/Yane Mathias MD [address] [facility] [place] [address] (Lena max) 03/03/2023 Virtual Visit Neurology Erlinda Barber MD [address] [facility] [place] 295 [place] [address] (Wo rk) documented as of this encounter Visit Diagnoses Diagnosis Essential hypertension, benign documented in this encounter Additional Health Concerns Assessment Noted Time PHQ-9 Depression Total Score: 4 04/12/2019 7:03 AM CDT documented as of this encounter Care Teams Mechanical Car Checker Relationship Specialty Start Date End Date Yane Barraza MD PCP - General Internal Medicine 12/08/21 [address] [facility] [address] [place] [phone] Chastity Montero MD Dermatology 09/23/14 MD Martha [address] [facility] [place] 98 [place], [place] [address] Johnnie Alcocer MD Surgeon General Surgery 03/23/[address] [place], [place] [address] Mtm, Ea Complex 04/23/19 Svetlana Osman Pharmacist Pharmacotherapy 04/23/19 Era, [facility] [address] [place] [address] Haylie Cheung, Pharmacist Pharmacist 09/11/19 [facility] [address] [place] [address] Jaiden Holcomb Assigned PCP 05/24/20 MD Jayesh [address] [place] [address] Brook Sánchez MD Assigned Infectious 07/04/[address] [place] [address] Disease Provider [place], [place] [address] Osmar Kidd MD Assigned Sleep Provider 09/26/21 [address] [facility] 103 [place] [address] Erlinda Barber MD Assigned Neuroscience 10/24/21 [address] [facility] [place] Provider [address] [place] [address] Haylie Cheung, Assigned MTM Pharmacist 01/08/22 04/01/22 [facility] [address] [facility] [place] [address] Gaye Patrick, RN Personal Advocate & 01/18/22 Liaison (PAL) Kenya Abernathy APRN Assigned Heart and 01/22/22 COLLEGE PRESIDENT Vascular Provider [address] [address] Hayley German Assigned Surgical 02/12/22 KENNETH Yan Provider [address] [facility] [place] [address] documented as of this encounter
--- OUTSIDE RECORDS SUMMARY | 2022-06-15 12:38 | XMS_ITS | Encounter Summary ---
:1945 Author Organization [place] Address [address] [facility] [place] [address] Care Team Providers Name Role Phone Chastity Montero MD Unavailable [phone] Johnnie Alcocer MD Unavailable Mtm, Ea Complex Unavailable Unavailable Svetlana Osman [facility] Unavailable [phone] [facility] Unavailable [phone] Jaiden Holcomb MD Unavailable Brook Sánchez MD Unavailable Osmar Kidd MD Unavailable Erlinda Barber MD Unavailable Yane Barraza MD Primary Care Provider Gaye Patrick RN Unavailable Unavailable Kenya Abernathy APRN [employer]NER Unavailable [phone] Hayley German OD Unavailable Haylie Cheung [facility] Unavailable [phone] Encounter Details Date Type Department Care Team Description 04/29/2022 [facility] Only [facility] Yane Barraza MD Anticoagulation Clin ic [address] [facility] [address] [facility] [place] [place] [phone] [place] [address] (Wo rk) Social History [...] More than 4 times per year 05/03/2021 faith services? Do you belong to any clubs [...] place to sleep or slept in a 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 (including now)? Education Answer Date Recorded What is the highest level of school Bachelor's degree (e.g., BA, AB, 01/05/2019 you have completed or the highest BS) degree you have received? Sex Assigned at Date Recorded Female 12/24/2018 12:35 PM CDT documented as of this encounter Plan of Treatment Upcoming Encounters Date Type Specialty Care Team Description 11/15/2022 Virtual Visit Pharm Haylie Gonzalez, [facility] [address] [facility] [place] [address] (Wo rk) 11/15/2022 Virtual Visit IM/Peds Yane Barraza MD [address] [facility] [place] [address] (Wo rk) 03/03/2023 Virtual Visit Neurology Erlinda Barber MD 420 [facility] 295 [place], [place] [address] (Wo rk) documented as of this encounter Procedures Procedure Name Priority Date/Time Associated Diagnosis Comme nts INR (EXTERNAL Routine 04/29/2022 12:00 AM Results for this RESULT) CDT procedure are i n the results section. documented in this encounter Results INR (External Result) (04/29/2022 12:00 AM CDT) P athologist Signature INR HOME 2.8 2.000 - [facility] 3[facility]000 [facility] Specimen (Source) Anatomical Location Collection Method / Collectio n Time Received Time / Laterality Volume 04/29/2022 Narrative [facility] - 04/29/2022 4:2 4 PM CDT Yane Barraza MD LAB - HIM EXTERNAL RESULT Performing Organization Address City/State/ZIP Code Phon e Number [facility] [address] [place] [address] documented in this encounter Visit Diagnoses Not on filedocumented in this encounter Additional Health Concerns Assessment Noted Time PHQ-9 Depression Total Score: 4 04/12/2019 7:03 AM CDT documented as of this encounter Care Teams Public Service Officer Relationship Specialty Start Date End Date Yane Barraza MD PCP - General Internal Medicine 12/08/21 [address] [facility] [place] [address] Chastity Montero MD Dermatology 09/23/14 MD Martha 420 [facility] 98 [place], [place] [address] Johnnie Alcocer MD Surgeon General Surgery 03/23/[address] [place], [place] [address] Mtm, Ea Complex 04/23/19 Svetlana Osman Pharmacist Pharmacotherapy 04/23/19 Era, [facility] [address] [place] [id number] Haylie Cheung, Pharmacist Pharmacist 09/11/[address] [facility] [address] [place] [address] Jaiden Holcomb Assigned PCP 05/24/20 MD Jayesh [address] [place] [id number] Brook Sánchez MD Assigned Infectious 07/04/[address] [place] [address] ST SE Disease Provider [place], [place] [address] Osmar Kidd MD Assigned Sleep Provider 09/26/21 [address] [place] [address] Erlinda Barber MD Assigned Neuroscience 10/24/[address] [facility] Provider [address] [place], [place] [address] Gaye Patrick, RN Personal Advocate & 01/18/22 Liaison (PAL) Kenya Abernathy APRN Assigned Heart and 01/22/22 T[facility]CH BURNER Vascular Provider [address] [place] [id number] Hayley German Assigned Surgical 02/12/22 KENNETH Yan Provider [address] [facility] [place] [id number] Haylie Cheung, Assigned MTM Pharmacist 04/13/[address] [facility] [address] [facility] [place] [address] documented as of this encounter
--- OUTSIDE RECORDS SUMMARY | 2022-06-15 12:39 | XMS_ITS | Encounter Summary ---
:1945 Author Organization [place] Address [address] [facility] [place] [address] Care Team Providers Name Role Phone Chastity Montero MD Unavailable [phone] Johnnie Alcocer MD Unavailable Mtm, Ea Complex Unavailable Unavailable Svetlana Osman [facility] Unavailable [phone] Haylie Cheung [facility] Unavailable [phone] Jaiden Holcomb MD Unavailable Patience Toussaint NP Unavailable Brook Sánchez MD Unavailable Osmar Kidd MD Unavailable Erlinda Barber MD Unavailable Yane Barraza MD Primary Care Provider Haylie Cheung [facility] Unavailable [phone] Gaye Patrick RN Unavailable Unavailable Kenya Abernathy APRN CHECKER/STOCKER Unavailable [phone] Encounter Details Date Type Department Care Team Description 02/07/2022 Anticoagulation [facility] Person peña history of pulmonary embolism (Primary Dx); Therapy Visit Anticoagulation [facility] urrent use of 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; Clinic [facility] [place] Atrial fibrillation, unspeci fied type (H) [address] [place] [address] Social History Tobacco Use Types [...] More than 4 times per year 05/03/2021 bahai services? Do you belong to any clubs [...] documented as of this encounter Progress Notes Ranjana Jimenez, [facility] - 02/07/2022 4:37 PM CDT ANTICOAGULATION MANAGEMENT Charlette Brush 77 year old female is on warfarin with therapeutic INR result. (Goal INR 2.0-3.0) Recent labs: (last 7 days) 02/07/22 0000 INR 2.8 ASSESSMENT ??? Source(s): Chart Review and Patient/Caregiver Call ??? Warfarin doses taken: Warfarin taken as instructed ??? Diet: No new diet changes identified ??? New illness, injury, or hospitalization: No ??? Medication/supplement changes: None noted ??? Signs or symptoms of bleeding or clotting: No ??? Previous INR: Therapeutic last visit; previously outside of goal range ??? Additional findings: First INR check using home monitor. Instructed by company to check every 2-4 weeks. PLAN Recommended plan for no diet, medication or health factor changes affecting INR Dosing Instructions: Continue your current warfarin dose with next INR in 2 weeks Summary As of 02/07/2022 Full warfarin instructions: 5 mg every Mon, Sat; 10 mg all other days Next INR check: 02/21/2022 Telephone call with Charlette who verbalizes understanding and agrees to plan Lab visit scheduled Education provided: Please call back if any changes to your diet, medications or how you've been taking warfarin Plan made per [facility] anticoagulation protocol + training with [facility] Rausch, [facility] 02/07/2022 Anticoagulation Episode Summary Current INR goal: 2.0-3.0 TTR: 68.3 % (1 y) Target end date: Indefinite Send INR reminders to: [facility] Indications 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] prison current use of 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 [Z79.01] Atrial fibrillation unspecified type (H) [I48.91] Comments: home monitor start up 02/07/22 Anticoagulation Care Providers Provider Role Specialty Phone number Galdino Valdez MD Referring Family Medicine [phone] Jaiden Holcomb MD Referring Internal Medicine [phone] Yane Barraza MD Referring Internal Medicine [phone] Lucero Stevenson MD Responsible Internal Medicine [phone] documented in this encounter Plan of Treatment Upcoming Encounters Date Type Specialty Care Team Description 11/15/2022 Virtual Visit Haylie Wakefield, [facility] [address] [place] [address] (Wo rk) 11/15/2022 Virtual Visit IM/Peds Yane Barraza MD [address] [facility] [place] [id number] (Wo rk) 03/03/2023 Virtual Visit Neurology Erlinda Barber MD [address] [facility] [address] [place], [place] [address] (Wo rk) documented as of this encounter Visit Diagnoses Diagnosis 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 embolism - 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 Atrial fibrillation, unspecified type (H ) documented in this encounter Additional Health Concerns Assessment Noted Time PHQ-9 Depression Total Score: 4 04/12/2019 7:03 AM CDT documented as of this encounter Care Teams Shop Steward Relationship Specialty Start Date End Date Yane Barraza MD PCP - General Internal Medicine 12/08/[address] [facility] [facility] [address] [place] [phone] Chastity Montero MD Dermatology 09/23/14 MD Martha [address] [facility] 98 [place], [place] [address] Johnnie Alcocer MD Surgeon General Surgery 03/23/17 [address] [facility] [address] [place], [place] [id number] Mtm, Ea Complex 04/23/19 Svetlana Osman Pharmacist Pharmacotherapy 04/23/19 Era [facility] [address] [place] [phone] Haylie Cheung, Pharmacist Pharmacist 09/11/19 [facility] [address] [place] [phone] Jaiden Holcomb Assigned PCP 05/24/20 MD Jayesh [address] [place] [address] Patience Toussaint NP Assigned Surgical 01/29/21 02/11/22 [address] [facility] Provider [address] [place], [place] [phone] Brook Sánchez MD Assigned Infectious 07/04/21 [address] Disease Provider [place], [place] [address] Osmar Kidd MD Assigned Sleep Provider 09/26/21 [address] [place] [address] Erlinda Barber MD Assigned Neuroscience 10/24/21 [address] [facility] [address] [facility] Provider [address] [place], [place] [address] Haylie Cheung, Assigned MTM Pharmacist 01/08/22 04/01/22 [facility] [address] [place] [phone] Gaye Patrick, RN Personal Advocate & 01/18/22 Liaison (PAL) Kenya Abernathy APRN Assigned Heart and 01/22/22 CHECKER/STOCKER Vascular Provider [address] [place] [address] documented as of this encounter
--- OUTSIDE RECORDS SUMMARY | 2022-06-15 12:39 | XMS_ITS | Encounter Summary ---
:1945 Author Organization [place] Address [address] [place] [address] Care Team Providers Name Role Phone Chastity Montero MD Unavailable [phone] Johnnie Alcocer MD Unavailable Mtm, Ea Complex Unavailable Unavailable Svetlana Osman [facility] Unavailable [phone] Haylie Cheung [facility] Unavailable [phone] Jaiden Holcomb MD Unavailable [phone] Patience Toussaint NP Unavailable Brook Sánchez MD Unavailable Osamr Kidd MD Unavailable Erlinda Barber MD Unavailable Yane Barraza MD Primary Care Provider Haylie Cehung [facility] Unavailable [phone] Gaye Patrick RN Unavailable Unavailable Kenya Abernathy APRN ROOFER HELPER [employer] Unavailable [phone] Encounter Details Date Type Department Care Team Description 02/03/2022 [facility] Par oxysmal atrial fibrillation [place] [facility] (H) [address] [facility] [address] [place] [address] Social History Tobacco Use Types Packs/Day Years [...] or relatives? How often do you attend hindu or More than 4 times per year 05/03/2021 episcopal services? Do you belong to any clubs or No 05/03/2021 organizations such as hindu groups, unions, fraternal or athletic groups, or [...] Pharm Haylie Gonzalez, [facility] [address] [address] (Wo rk) 11/15/2022 Virtual Visit [place] [address] [place] [address] [place] [address] (Wo rk) 03/03/2023 Virtual Visit Neurology Erlinda Barber MD [address] [facility] 295 [place], [place] [address] (Wo rk) documented as of this encounter Procedures Procedure Name Priority Date/Time Associated Diagnosis Comme nts INR POINT OF CARE Routine 02/03/2022 11:23 AM Paroxysmal atria l Results for this CDT fibrillation (H) procedure a re in the results section. documented in this encounter Results (ABNORMAL) INR point of care (02/03/2022 11:23 AM CDT) P athologist Signature INR 2.1 (H) 0.9 - 1.1 02/03/2022 [facility] 11:24 AM CDT Specimen Anatomical Collection Method Collection Time Receive d Time (Source) Location / / Volume Laterality Blood STRUCTURE OF Capillary / 02/03/2022 11:23 02/03/2022 FINGER OF RIGHT Unknown AM CDT 11:23 AM CDT HAND / Unknown Narrative [facility] - 02/03/2022 11:24 AM CDT This test is intended for monitoring Cou madin therapy. Results are not accurate in patients with prolonged INR due to facto r deficiency. Yane Barraza MD LAB - BLOOD ORDERABLES Performing Organization Address City/State/ZIP Code Phon e Number [facility] [place] [address] [place] [address] [address] LABORATORY [facility] [place] [address] [place] [address] [place] [address] [address] documented in this encounter Visit Diagnoses Diagnosis Paroxysmal atrial fibrillation (H) Atrial fibrillation documented in this encounter Additional Health Concerns Assessment Noted Time PHQ-9 Depression Total Score: 4 04/12/2019 7:03 AM CDT documented as of this encounter Care Teams Meat Selector Relationship Specialty Start Date End Date Yane Barraza MD PCP - General Internal Medicine 12/08/[address] [place] [address] [place] [phone] Chastity Montero MD Dermatology 09/23/14 MD Martha [address] [facility] 98 [place] [address] Johnnie Alcocer MD Surgeon General Surgery 03/23/[address] [place], [place] [phone] Kyle King Complex 04/23/19 Svetlana Osman Pharmacist Pharmacotherapy 04/23/19 Era [facility] [address] [place] [address] Haylie Cheung, Pharmacist Pharmacist 09/11/19 [place] [address] [place] [address] Jaiden Holcomb Assigned PCP 05/24/20 MD Jayesh [address] [place], [place] [address] Patience Toussaint NP Assigned Surgical 01/29/21 02/11/22 [address] [facility] Provider [address] [place], [place] [phone] Brook Sánchez MD Assigned Infectious 07/04/[address] [place] [address] SE Disease Provider [place], [place] [address] Osmar Kidd MD Assigned Sleep Provider 09/26/21 [address] [place] [address] Erlinda Barber MD Assigned Neuroscience 10/24/21 [address] [facility] Provider [address] [place] [address] Haylie Cheung, Assigned MTM Pharmacist 01/08/22 04/01/22 [place] [address] [place] [address] Gaye Patrick, RN Personal Advocate & 01/18/22 Liaison (PAL) Kenya Abernathy APRN Assigned Heart and 01/22/22 ROOFER HELPER VINYL COATING Vascular Provider [address] [address] documented as of this encounter
--- OUTSIDE RECORDS SUMMARY | 2022-06-15 12:39 | XMS_ITS | Encounter Summary ---
:1945 Author Organization [place] Address [address] [place] [address] Care Team Providers Name Role Phone Chastity Montero MD Unavailable [phone] Johnnie Alcocer MD Unavailable Mtm, Ea Complex Unavailable Unavailable vSetlana Osman [facility] Unavailable [phone] Haylie Cheung [facility] Unavailable [phone] Jaiden Holcomb MD Unavailable Patience Toussaint NP Unavailable Brook Sánchez MD Unavailable Osmar Kidd MD Unavailable Erlinda Barber MD Unavailable Yane Barraza MD Primary Care Provider Haylie Cheung [facility] Unavailable [phone] Gaye Patrick RN Unavailable Unavailable Kenya Abernathy APRN SERVER CASHIER Unavailable [phone] Encounter Details Date Type Department Care Team Description 01/31/2022 Travel Social History Tobacco Use Types Packs/Day [...] or relatives? How often do you attend pentecostal or More than 4 times per year 05/03/2021 tenriism services? Do you belong to any clubs or No 05/03/2021 organizations such as pentecostal groups, unions, fraTripcover or athletic groups, or school groups? How [...] in contact with No / Unsu re 01/31/2022 11:46 PM CDT someone who was confirmed or suspected to have Coronavirus/COVID-19? documented as of this encounter Plan of Treatment Upcoming Encounters Date Type Specialty Care Team Description 11/15/2022 Virtual Visit Pharm Haylie Gonzalez, [facility] [address] [facility] [place] [address] (Wo rk) 11/15/2022 Virtual Visit IM/Peds Yane Barraza MD [address] [employer] [place] [phone] (Wo rk) 03/03/2023 Virtual Visit Neurology Erlinda Barber MD [address] [facility] 295 [place] [address] (Wo rk) documented as of this encounter Visit Diagnoses Not on filedocumented in this encounter Additional Health Concerns Assessment Noted Time PHQ-9 Depression Total Score: 4 04/12/2019 7:03 AM CDT documented as of this encounter Care Teams Tugboat Operator Relationship Specialty Start Date End Date Yane Barraza MD PCP - General Internal Medicine 12/08/21 [facility] [place] [phone] Chastity Montero MD Dermatology 09/23/14 MD Martha [address] [facility] [address] [place], [place] [address] Johnnie Alcocer MD Surgeon General Surgery 03/23/[address] [place], [place] [address] Mtm, Ea Complex 04/23/19 Svetlana Osman Pharmacist Pharmacotherapy 04/23/19 Era, [address] [place] [address] Haylie Cheung, Pharmacist Pharmacist 09/11/[address] [place] [phone] Jaiden Holcomb Assigned PCP 05/24/20 MD Jayesh 909 [place], [place] [address] Patience Toussaint NP Assigned Surgical 01/29/21 02/11/22 [address] [facility] Provider [address] [place], [place] [phone] Brook Sánchez MD Assigned Infectious 07/04/[address] [place] [address] Disease Provider [place], [place] [address] Osmar Kidd MD Assigned Sleep Provider 09/26/21 [address] [place], [place] [address] Erlinda Barber MD Assigned Neuroscience 10/24/21 [address] [facility] Provider [address] [place], [place] [address] Haylie Cheung, Assigned MTM Pharmacist 01/08/22 04/01/[address] [place] [address] Gaye Patrick, RN Personal Advocate & 01/18/22 Liaison (PAL) Kenya Abernathy APRN Assigned Heart and 01/22/22 SERVER CASHIER Vascular Provider [address] [address] documented as of this encounter
--- OUTSIDE RECORDS SUMMARY | 2022-06-15 12:39 | XMS_ITS | Encounter Summary ---
:1945 Author Organization [place] Address [address] [place] [address] Care Team Providers Name Role Phone Chastity Montero MD Unavailable [phone] Johnnie Alcocer MD Unavailable Mtm, Ea Complex Unavailable Unavailable Svetlana Osman [facility] Unavailable [phone] Haylie Cheung [facility] Unavailable [phone] Jaiden Holcomb MD Unavailable [phone] Patience Toussaint NP Unavailable Brook Sánchez MD Unavailable Osmar Kidd MD Unavailable Erlinda Barber MD Unavailable Yane Barraza MD Primary Care Provider Haylie Cheung [facility] Unavailable [phone] Gaye Patrick RN Unavailable Unavailable Kenya Abernathy APRN TERMITE INSPECTOR Unavailable [phone] Reason for Referral Specialty Diagnoses / Procedures Referred By Contact Refer red To Contact [facility] [address] [place] [phone] Referral ID Status Reason Start Date Expiration Date Visits Requ ested Visits Authorized Reason for Visit Reason Onset Date Comments Anticoagulation 02/03/2022 Annual INR referral renewal and standing lab order Encounter Details Date Type Department Care Team Description 02/03/2022 [facility]ation [facility] Anticoagulation Clin seth Bal RN (Annual INR referral [address] [place] [address] Social History Tobacco Use Types [...] More than 4 times per year 05/03/2021 orthodoxy services? Do you belong to any clubs [...] documented as of this encounter Progress Notes Janie Figueroa RN - 02/03/2022 12:41 PM CDT ANTICOAGULATION CLINIC REFERRAL RENEWAL REQUEST An annual renewal order is required for all patients referred to [facility].? Please review and sign the pended referral order for Charlette Brush. ANTICOAGULATION SUMMARY Warfarin indication(s) Atrial Fibrillation, Recurrent DVT and Recurrent PE Mechanical heart valve present? NO Current goal range INR: 2.0-3.0 Goal appropriate for indication? Goal INR 2-3, standard for indication(s) above Time in Therapeutic Range (TTR) (Goal > 60%) 68% Office visit with referring provider's group within last year yes on 01/11/2022 Janie Figueroa, RN [facility] documented in this encounter Plan of Treatment Upcoming Encounters Date Type Specialty Care Team Description 11/15/2022 Virtual Visit Pharm D Haylie Cheung, [facility] [address] [place] [address] [place] [address] (Wo rk) 11/15/2022 Virtual Visit IM/Peds Yane Barraza MD [address] [facility] [place] [address] (Wo rk) 03/03/2023 Virtual Visit Neurology Erlinda Barber MD 420 [facility] 295 [place], [place] [address] (Wo rk) Scheduled Orders Name Type Priority Associated Diagnoses Order S chedule INR point of care Lab Routine Hx Recurrent PE/DVT -- on every 1-6 weeks for 99 Warfarin Occurrences starting Atrial fibrillation, 022 until unspecified type (H) 023 Scheduled Referrals Name Type Priority Associated Order Schedule Diagnoses Anticoagulation Clinic Referral Routine: Next Hx Recurrent PE/D VT Ordered: Referral available opening -- on Warfarin 02/03/2022 Atrial fibrillation, unspecified type (H) documented as of this encounter Visit Diagnoses Diagnosis 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 - Jessica antonia 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 embolism Atrial fibrillation, unspecified type (H ) documented in this encounter Additional Health Concerns Assessment Noted Time PHQ-9 Depression Total Score: 4 04/12/2019 7:03 AM CDT documented as of this encounter Care Teams Employment Programs Analyst Relationship Specialty Start Date End Date Yane Barraza MD PCP - General Internal Medicine 12/08/[address] [place] [address] Chastity Montero MD Dermatology 09/23/14 MD Martha 420 [facility] 98 [place], [place] [address] Johnnie Alcocer MD Surgeon General Surgery 03/23/[address] [place] [address] Mtm, Ea Complex 04/23/19 Svetlana Osman Pharmacist Pharmacotherapy 04/23/19 Era [address] [place] [id number] Haylie Cheung, Pharmacist Pharmacist 09/11/19 [place] [address] [place] [address] Jaiden Holcomb Assigned PCP 05/24/20 MD Jayesh 909 [place], [place] [address] Patience Toussaint NP Assigned Surgical 01/29/21 02/11/22 2945 [facility] Provider [address] [place], [place] [address] Brook Sánchez MD Assigned Infectious 07/04/21 9[address] [facility] Disease Provider [place], [place] [address] Osmar Kidd MD Assigned Sleep Provider 09/26/21 [address] [facility] 103 [place] [address] Erlinda Barber MD Assigned Neuroscience 10/24/21 [address] [facility] Provider [address] [place], [place] [address] Haylie Cheung, Assigned MTM Pharmacist 01/08/22 04/01/22 [place] [address] [place] [address] Gaye Patrick, RN Personal Advocate & 01/18/22 Liaison (PAL) Kenya Abernathy APRN Assigned Heart and 01/22/22 [facility] Vascular Provider [address] [address] documented as of this encounter
--- OUTSIDE RECORDS SUMMARY | 2022-06-15 12:39 | XMS_ITS | Encounter Summary ---
:1945 Author Organization [place] Address [address] [place] [address] Care Team Providers Name Role Phone Chastity Montero MD Unavailable [phone] Johnnie Alcocer MD Unavailable Mtm, Ea Complex Unavailable Unavailable Svetlana Osman [facility] Unavailable [phone] Haylie Cheung [facility] Unavailable [phone] Jaiden Holcomb MD Unavailable [phone] Brook Sánchez MD Unavailable Osmar Kidd MD Unavailable Erlinda Barber MD Unavailable Yane Barraza MD Primary Care Provider Haylie Cheung [facility] Unavailable [phone] Gaye Patrick RN Unavailable Unavailable Kenya Abernathy APRN PHOTOGRAPH FINISHER Unavailable [phone] Hayley German OD Unavailable [phone] Reason for Visit Reason Comments RECHECK VIDEO VISIT RETURN Encounter Details Date Type Department Care Team Description 02/25/2022 Virtual Visit [facility] Erlinda Barber MD Recurrent seizures Neurology Clinic [address] (H) [facility] 295 [address] [place], [place] 3rd Floor [address] [place], [place] [phone] [address] (Work) [phone] Social History Tobacco Use Types Packs/Day Years [...] More than 4 times per year 05/03/2021 mormonism services? Do you belong to any clubs [...] place to sleep or slept in a prison (including now)? Education Answer Date Recorded What [...] have Coronavirus/COVID-19? documented as of this encounter Patient Instructions Patient InstructionsErlinda Barber MD - 02/25/2022 9:20 AM CDT Times of Days am pm Medication Tablet Size Number of Tablets/Capsules Total Daily Dosage Keppra 500 1 1 1000 mg Carry this with you at all times. CONTINUE TAKING YOUR OTHER MEDICATIONS PREVIOUSLY DIRECTED. * * *Do not store medications in the bathroom. Keep medications away from children!* * * documented in this encounter Progress Notes Erlinda Barber MD - 02/25/2022 9:20 AM CDT Charlette is a 77 year old who is being evaluated via a billable video visit. How would you like to obtain your AVS? Mail a copy If the video visit is dropped, the invitation should be resent by: Send to e- mail at: [email or web address] Will anyone else be joining your video visit? No Video-Visit Details Video Start Time: 9:23 AM Type of service: Video Visit Video End Time:9:34 AM Originating Location (pt. Location): Home Distant Location (provider location): [facility] Platform used for Video Visit: AmWell Erlinda Barber MD - 02/25/2022 9:20 AM CDT CHIEF COMPLAINT: New onset seizure. HISTORY OF PRESENT ILLNESS: Video call for follow up. Patient is a 77-year-old right-handed female with new onset seizure in 2018. This was the only seizure in her life time,which was on 03/15/2019. Since the last visit, she had no seizures. She is currently taking Keppra 500 mg bid. She is compliant with her medications. No side effects were reported. She is happy with the results. Her previous EEG showed left temporal epileptiform activities. Patient broke her foot recently and will need to heal for about 3 months. According to the patient and her daughter, she was in her usual state of health until 03/15/2019 when she was on the phone with her daughter. Her daughter felt that she suddenly had difficulty speaking. Her words did not make any sense and she had her occupational therapist came in that afternoon and she could only remember the therapist came in, but did not remember when the therapist left. The nextthing she remembers was that she was in an ambulance. She was taken to the emergency department and she was noticed by the ER staff that she had intermittent confusional spells, difficulties with speech and her speech did not make any sense from time to time. The patient did not remember much in the em ergency room and she was back to baseline the next day. That is what she started to remember everything. According to the patient and the daughter, she had some dried blood streaking down her face and she had bitten her tongue on both sides. She denied any urinary incontinence. She had no other spells in the past. She had MRI scan done at that time which did not show any significant abnormalities. EEG in the hospital showed left temporal epileptiform activities during sleep. She was started on Keppra 1000 mg daily. Since the hospital discharge, she had no further spells. She is compliant with medications. She feltsome fatigue, sleepiness with Keppra. She is wondering if she should take Keppra twice daily. TRIGGERS FOR SEIZURE: Unclear. RISK FACTORS FOR SEIZURES: She had a sister who had a history of seizures with menstruation. She hadgeneralized tonic-clonic seizures at that time. She was seizure free since late 20s. She had no history of head trauma with loss of consciousness. No history of SUPERVISOR PARACHUTE MANUFACTURING infection. No history of febrile convulsions. No history of brain tumor, no history of stroke. She had normal and development. CURRENT AEDs: 1. Keppra 500 mg bid. ?? Current Outpatient Medications Medication Sig Dispense Refill ??? acetaminophen (TYLENOL) 500 MG tablet Take 500 mg by mouth every 8 hours as needed ??? atorvastatin (LIPITOR) 40 MG tablet Take 0.5 tablets (20 mg) by mouth At Bedtime ??? bisacodyl (DULCOLAX) 5 MG EC tablet Take 5 mg by mouth daily as needed ??? cetirizine (ZYRTEC) 10 MG tablet Take 10 mg by mouth 2 times daily ??? Cholecalciferol (VITAMIN D) 125 MCG (5000 UT) capsule Take 1 capsule (5,000 Units) by mouth daily 90 capsule 3 ??? docusate sodium (COLACE) 100 MG capsule Take 1 capsule (100 mg) by mouth daily as needed for constipation Patient take own Stool Softener. Recommend taking Monday,Monday,Monday. 90 capsule 3 ??? ferrous sulfate (FEROSUL) 325 (65 Fe) MG tablet Take 1 tablet (325 mg) by mouth every other day 90 tablet 1 ??? furosemide (LASIX) 40 MG tablet Take 0.5 tablets (20 mg) by mouth daily 90 tablet 0 ??? hydrocortisone 2.5 % ointment Daily as needed to rash on arms and legs 180 g 3 ??? levETIRAcetam (KEPPRA) 500 MG tablet Take 1 tablet (500 mg) by mouth 2 times daily 180 tablet 3 ??? losartan (COZAAR) 50 MG tablet Take 1 tablet (50 mg) by mouth daily 90 tablet 3 ??? MAGNESIUM GLYCINATE PO Take 665 mg by mouth daily ??? metoprolol succinate ER (TOPROL XL) 25 MG 24 hr tablet Take 1 tablet (25 mg) by mouth daily 90 tablet 1 ??? Multiple Minerals-Vitamins (CITRACAL MAXIMUM PLUS) TABS Take 1 tablet by mouth daily Generic Centrum Silver from [employer] (Vitamin D 1000 international unit(s) and calcium 300mg) ??? Multiple Vitamins-Minerals (PRESERVISION/LUTEIN) CAPS Take 1 tablet by mouth 2 times daily ??? nystatin (MYCOSTATIN) 093116 UNIT/GM external cream Apply topically daily as needed for dry skin90 g 11 ??? nystatin (NYSTOP) 507864 UNIT/GM external powder APPLY TOPICALLY TO THE AFFECTED AREA BENEATH BILATERAL BREAST/GROIN FOLDS TWICE DAILY UNTIL RESOLVED 180 g 11 ??? Colon-3 Fatty Acids (FISH OIL PO) Take 1 g by mouth daily [id number]-[id number] ??? Probiotic Product (PROBIOTIC PO) Take by mouth daily as needed (while on antibiotics) Renew LifeProbiotic ??? triamcinolone (KENALOG) 0.1 % external ointment Apply topically 2 times daily as needed for irritation 45 g 0 ??? vitamin C (ASCORBIC ACID) 1000 MG TABS Take 1,000 mg by mouth daily ??? warfarin ANTICOAGULANT (COUMADIN) 10 MG tablet TAKE 1 TABLET(10 MG) BY MOUTH DAILY OR DIRECTED BY YOUR ACC CARE TEAM. 90 tablet 1 ??? zinc gluconate 50 MG tablet Take 1 tablet (50 mg) by mouth daily 90 tablet 3 PAST ANTISEIZURE MEDICATIONS: None. ALLERGIES: Cephalexin, lanolin, lisinopril, neomycin, penicillin, Bactroban, mupirocin. PAST MEDICAL HISTORY: Hypertension, benign positional vertigo, coagulation disorder, pulmonary embolism, GERD, obesity, obstructive sleep apnea, lymphedema, rhabdomyolysis, left buttocks decubitus. PAST SURGICAL HISTORY: Colonoscopy, cholecystectomy, cataract surgery, tonsillectomy and adenoidectomy. FAMILY HISTORY: Sister had a history of seizures during her menses, started in late teens but stopped having seizures in her 20s. The sister had all generalized tonic-clonic seizures. SOCIAL HISTORY: She lives in [place]. She had regular classes in the past. She had bachelor's degree in economics, history and library science. 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 She is . She has 1 adult child. No smoking, no alcohol, no drug abuse. PHYSICAL EXAMS: AAO x 3, speech fluent and appropriate. ?? REVIEW OF SYSTEMS: Positive for wound on the back. The rest of the 8-point review of systems is negative. PREVIOUS DIAGNOSTIC TESTING: MRI scan of the brain on 01/16/2019 showed normal MRI. MRI of the brainon 03/16 showed: 1. Susceptibility related to signal loss along the left parietal lobe, calvarium and scalp, presumably artifact related to compare paramagnetic material or device along the scalp. This finding is new compared to 01/16/2019; otherwise, unremarkable. 2. EEG on showed occasional left temporal epileptiform activities during sleep and occasional left temporal slowing during sleep and wakefulness. No seizures. IMPRESSION: 1. 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 The etiology of the seizure is unclear at this time. The patient's MRI of the brain was negative, and EEG showed the left temporal slowing and the left temporal epileptiform activities. ?? Since the last visit, she had no seizures. She is currently taking Keppra 500 mg bid. She is compliant with her medications. No side effects were reported. She is happy with the results. ?? 2. Lymphedema. 3. Hypertension. 4. Obstructive sleep apnea. 5. Pressure ulcer of the left buttock. PLAN: 1. Continue Keppra 500 mg twice daily. Medication refilled. 2. Return to clinic in 12 months. 21 min total time was spent on the day of this visit. 11 min was spent on face to face time 5 min was spent on preparation of visit to review charts and labs, ordering medications and tests 5 min was spent on documentation of clinical information documented in this encounter Plan of Treatment Upcoming Encounters Date Type Specialty Care Team Description 11/15/2022 Virtual Visit Haylie Wakefield, [facility] [address] [place], [place] [id number] ([facility]) 11/15/2022 Virtual Visit IM/Peds Yane Barraza MD [address] [facility] [place] [address] ( winter) 03/03/2023 Virtual Visit Neurology Erlinda Barber MD [address] [facility] 295 [place] [address] ( winter) documented as of this encounter Visit Diagnoses Diagnosis Recurrent seizures (H) 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 documented in this encounter Additional Health Concerns Assessment Noted Time PHQ-9 Depression Total Score: 4 04/12/2019 7:03 AM CDT documented as of this encounter Care Teams Building Maintenance Custodian Relationship Specialty Start Date End Date Yane Barraza MD PCP - General Internal Medicine 12/08/[address] [place] [address] [place] [address] Chastity Montero MD Dermatology 09/23/14 MD Martha [address] [facility] 98 [place], [place] [address] Johnnie Alcocer MD Surgeon General Surgery 03/23/17 [address] [place], [place] [address] Mtm, Ea Complex 04/23/19 Svetlana Osman Pharmacist Pharmacotherapy 04/23/19 Era, [facility] [address] [place] [address] Haylie Cheung, Pharmacist Pharmacist 09/11/19 [facility] [address] [place] [address] Jaiden Holcomb Assigned PCP 05/24/20 MD Jayesh 909 [place], [place] [address] Brook Sánchez MD Assigned Infectious 07/04/21 [address] [facility] [address] Disease Provider [place], [place] [address] Osmar Kidd MD Assigned Sleep Provider 09/26/21 [address] [place] [address] Erlinda Barber MD Assigned Neuroscience 10/24/21 [address] [facility] Provider 295 [place], [place] [address] Haylie Cheung, Assigned MTM Pharmacist 01/08/22 04/01/22 [facility] [address] [facility] [place] [address] Gaye Patrick, RN Personal Advocate & 01/18/22 Liaison (PAL) Kenya Abernathy APRN Assigned Heart and 01/22/22 PHOTOGRAPH FINISHER Vascular Provider [address] [place] [address] Hayley German Assigned Surgical 02/12/22 KENNETH Yan Provider [address] [facility] [place] [id number] documented as of this encounter
--- OUTSIDE RECORDS SUMMARY | 2022-06-15 12:39 | XMS_ITS | Encounter Summary ---
:1945 Author Organization [place] Address [address] [place] [address] Care Team Providers Name Role Phone Chastity Montero MD Unavailable [phone] Johnnie Alcocer MD Unavailable Mtm, Ea Complex Unavailable Unavailable Svetlana Osman [facility] Unavailable [phone] Haylie Cheung [facility] Unavailable [phone] Jaiden Holcomb MD Unavailable [phone] Patience Toussaint NP Unavailable Brook Sánchez MD Unavailable Osmar Kidd MD Unavailable Erlinda Barber MD Unavailable Yane Barraza MD Primary Care Provider Haylie Cheung [facility] Unavailable [phone] Gaye Patrick RN Unavailable Unavailable Kenya Abernathy APRN FUNCTIONAL ARCHITECT Unavailable [phone] Encounter Details Date Type Department Care Team Description 02/03/2022 Anticoagulation [facility] Janie Figueroa history of pulmonary embolism (Primary Dx); Therapy Visit Anticoagulation Clin ic 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 How often do you attend scientology or More than 4 times per year 05/03/2021 catholic services? Do you belong to any clubs or No 05/03/2021 organizations such as scientology groups, unions, fraternal or athletic groups, or [...] Progress Notes Janie Figueroa RN - 02/03/2022 12:40 PM CDT ANTICOAGULATION MANAGEMENT Charlette Velma Brush 77 year old female is on warfarin with therapeutic INR result. (Goal INR 2.0-3.0) Recent labs: (last 7 days) 02/03/22 1123 INR 2.1* ASSESSMENT ??? Source(s): Chart Review and Patient/Caregiver Call ??? Warfarin doses taken: Warfarin taken as instructed ??? Diet: No new diet changes identified ??? New illness, injury, or hospitalization: No ??? Medication/supplement changes: None noted ??? Signs or symptoms of bleeding or clotting: Yes: Patient states she had bleeding on her buttocks after wound debridement on 01/26/22, bleeding stopped on 01/27/22 and no episodes since. Patient also reported that she had a bruise on her finger after her INR on 01/25/22, that one has since healed. ??? Previous INR: Supratherapeutic ??? Additional findings: warfarin maintenance dose was reduced 14% on 01/25/22. Also, patient she didreceive her home INR monitor, she will have training on 02/07/22. I set her next INR out 2 weeks but informed patient that home monitor company may require an INR weekly. PLAN Recommended plan for temporary change(s) affecting INR Dosing Instructions: continue your current warfarin dose with next INR in 2 weeks Summary As of 02/03/2022 Full warfarin instructions: 5 mg every Mon, Sat; 10 mg all other days Next INR check: 02/17/2022 Telephone call with Charlette who verbalizes understanding and agrees to plan Patient to recheck with home meter Education provided: Monitoring for bleeding signs and symptoms and Contact [phone] with any changes, questions or concerns. Plan made per [facility] anticoagulation protocol Janie Figueroa RN Anticoagulation Clinic 02/03/2022 Anticoagulation Episode Summary Current INR goal: 2.0-3.0 TTR: 68.4 % (1 y) Target end date: Indefinite Send INR reminders to: [facility] [place] Indications 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] residential current use of 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 [Z79.01] Atrial fibrillation unspecified type (H) [I48.91] Comments: Anticoagulation Care Providers Provider Role Specialty Phone number Galdino Valdez MD Referring Family Medicine [phone] Jaiden Holcomb MD Referring Internal Medicine [phone] Lucero Stevenson MD Responsible Internal Medicine [phone] documented in this encounter Plan of Treatment Upcoming Encounters Date Type Specialty Care Team Description 11/15/2022 Virtual Visit Pharm D Haylie Cheung, [facility] [address] [place] [address] (Wo rk) 11/15/2022 Virtual Visit IM/Peds Yane Barraza MD [address] [facility] [place] [address] (Wo rk) 03/03/2023 Virtual Visit Neurology Erlinda Barber MD [address] [facility] 295 [place] [address] (Wo rk) documented as of this encounter Visit Diagnoses Diagnosis 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 embolism - 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 t herapy Atrial fibrillation, unspecified type (H ) documented in this encounter Additional Health Concerns Assessment Noted Time PHQ-9 Depression Total Score: 4 04/12/2019 7:03 AM CDT documented as of this encounter Care Teams High Lift Operator Relationship Specialty Start Date End Date Yane Barraza MD PCP - General Internal Medicine 12/08/[address] [place] [address] Chastity Montero MD Dermatology 09/23/14 MD Martha [address] [facility] 98 [place] [address] Johnnie Alcocer MD Surgeon General Surgery 03/23/[address] [place], [place] [id number] Mtm, Ea Complex 04/23/19 Svetlana Osman Pharmacist Pharmacotherapy 04/23/19 Era, [facility] [address] [place] [address] Haylie Cheung, Pharmacist Pharmacist 09/11/19 [facility] [address] [place] [address] Jaiden Holcomb Assigned PCP 05/24/20 MD Jayesh 909 [place] [address] Patience Toussaint, VIANEY Assigned Surgical 01/29/21 02/11/22 [address] [facility] Provider [address] [place] [address] Brook Sánchez MD Assigned Infectious 07/04/[address] [place] [address] [place] [address] Osmar Kidd MD Assigned Sleep Provider 09/26/21 [address] [facility] [address] [place] [address] Erlinda Barber MD Assigned Neuroscience 10/24/21 [address] [facility] Provider 295 [place], [place] [address] Haylie Cheung, Assigned MTM Pharmacist 01/08/22 04/01/22 [facility] [address] [facility] [place] [id number] Gaye Patrick, RN Personal Advocate & 01/18/22 Liaison (PAL) Kenya Abernathy APRN Assigned Heart and 01/22/22 FUNCTIONAL ARCHITECT Vascular Provider [address] [place] [address] documented as of this encounter
--- OUTSIDE RECORDS SUMMARY | 2022-06-15 12:39 | XMS_ITS | Encounter Summary ---
:1945 Author Organization [place] Address [address] [facility] [place] [address] Care Team Providers Name Role Phone Chastity Montero MD Unavailable [phone] Johnnie Alcocer MD Unavailable Mtm, Ea Complex Unavailable Unavailable Svetlana Osman [facility] Unavailable [phone] Haylie Cheung [facility] Unavailable [phone] Jaiden Holcomb MD Unavailable [phone] Patience Toussaint NP Unavailable Brook Sánchez MD Unavailable Osmar Kidd MD Unavailable Erlinda Barber MD Unavailable Yane Barraza MD Primary Care Provider Haylie Cheung [facility] Unavailable [phone] Gaye Patrick RN Unavailable Unavailable Kenya Abernathy APRN PIPELAYING FITTER Unavailable [phone] Encounter Details Date Type Department Care Team Description 02/07/2022 [facility] Yane Barraza MD Anticoagulation Clin ic [address] [facility] [address] [place] [address] [address] [place] [phone] [place] [address] (Wo rk) Social History [...] or relatives? How often do you attend quaker or More than 4 times per year 05/03/2021 yarsani services? Do you belong to any clubs or No 05/03/2021 organizations such as quaker groups, unions, fraternal or athletic groups, or [...] 11/15/2022 Virtual Visit Pharm D Haylie Cheung, [facility] [address] [facility] [place] [address] (Lena max) 11/15/2022 Virtual Visit IM/Peds Yane Barraza MD [address] [facility] [place] [address] (Lena max) 03/03/2023 Virtual Visit Neurology Erlinda Barber MD 420 [facility] 295 [place] [address] (Wo winter) documented as of this encounter Procedures Procedure Name Priority Date/Time Associated Diagnosis Comme nts INR (EXTERNAL Routine 02/07/2022 12:00 AM Results for this RESULT) CDT procedure are i n the results section. documented in this encounter Results INR (External Result) (02/07/2022 12:00 AM CDT) P athologist Signature INR HOME 2.8 2.000 - [facility] 3.000 [facility] Specimen (Source) Anatomical Location Collection Method / Collectio n Time Received Time / Laterality Volume 02/07/2022 Narrative [facility] - 02/07/2022 2:2 9 PM CDT Yane Barraza MD LAB - HIM EXTERNAL RESULT Performing Organization Address City/State/ZIP Code Phon e Number [employer] [address] [place] [address] documented in this encounter Visit Diagnoses Not on filedocumented in this encounter Additional Health Concerns Assessment Noted Time PHQ-9 Depression Total Score: 4 04/12/2019 7:03 AM CDT documented as of this encounter Care Teams Lime Hide Inspector Relationship Specialty Start Date End Date Yane Barraza MD PCP - General Internal Medicine 12/08/[address] [place] [address] [place], [place] [id number] Chastity Montero MD Dermatology 09/23/14 MD Martha [address] [place] [address] 98 [place], [place] [address] Johnnie Alcocer MD Surgeon General Surgery 03/23/[address] [place], [place] [id number] Mtm, Ea Complex 04/23/19 Svetlana Osman Pharmacist Pharmacotherapy 04/23/19 Era, [facility] [address] [place] [address] Haylie Cheung, Pharmacist Pharmacist 09/11/19 [facility] [address] [place] [id number] Jaiden Holcomb Assigned PCP 05/24/20 MD Jayesh 909 [place] [address] Patience Toussaint, VIANEY Assigned Surgical 01/29/21 02/11/22 [address] [facility] Provider [address] [place] [address] Brook Sánchez MD Assigned Infectious 07/04/[address] [place] [address] [place] [address] Osmar Kidd MD Assigned Sleep Provider 09/26/21 [address] [place], [place] [address] Erlinda Barber MD Assigned Neuroscience 10/24/21 [address] [facility] Provider 295 [place], [place] [address] Haylie Cheung, Assigned MTM Pharmacist 01/08/22 04/01/22 [facility] [address] [facility] [address] [place] [id number] Gaye Patrick, RN Personal Advocate & 01/18/22 Liaison (PAL) Kenya Abernathy APRN Assigned Heart and 01/22/22 PIPELAYING FITTER Vascular Provider [address] [place] [address] documented as of this encounter
--- OUTSIDE RECORDS SUMMARY | 2022-06-15 12:39 | XMS_ITS | Encounter Summary ---
:1945 Author Organization [facility] Address [address] [place] [address] Care Team Providers Name Role Phone Chastity Montero MD Unavailable [phone] Johnnie Alcocer MD Unavailable Mtm, Ea Complex Unavailable Unavailable Svetlana Osman [facility] Unavailable [phone] Haylie Cheung [facility] Unavailable [phone] Jaiden Holcomb MD Unavailable [phone] Patience Toussaint NP Unavailable Brook Sánchez MD Unavailable Osmar Kidd MD Unavailable Erlinda Barber MD Unavailable Yane Barraza MD Primary Care Provider Haylie Cheung [facility] Unavailable [phone] Gaye Patrick RN Unavailable Unavailable Kenya Abernathy APRN DIRECTOR OF PHILANTHROPY Unavailable [phone] Encounter Details Date Type Department Care Team Description 02/03/2022 Travel Social History Tobacco Use Types Packs/Day [...] More than 4 times per year 05/03/2021 hoahaoism services? Do you belong to any clubs or No 05/03/2021 organizations such as latter-day groups, unions, fraZS Genetics or athletic groups, or school groups? How [...] Description 11/15/2022 Virtual Visit Pharm Haylie Gonzalez, [facility] 1440 [facility] [place] [address] (Wo rk) 11/15/2022 Virtual Visit IM/Peds Yane Barraza MD 038 [employer] [place] [id number] (Wo rk) 03/03/2023 Virtual Visit Neurology Erlinda Barber MD 420 [facility] 295 [place] [address] (Wo rk) documented as of this encounter Visit Diagnoses Not on filedocumented in this encounter Additional Health Concerns Assessment Noted Time PHQ-9 Depression Total Score: 4 04/12/2019 7:03 AM CDT documented as of this encounter Care Teams Radar Operator Relationship Specialty Start Date End Date Yane Barraza MD PCP - General Internal Medicine 12/08/21 [facility] VIOSO [place] [id number] Chastity Montero MD Dermatology 09/23/14 MD Martha 420 [facility] 98 [place], [place] [address] Johnnie Alcocer MD Surgeon General Surgery 03/23/[address] 300 [place], [place] [address] Mtm, Ea Complex 04/23/19 Svetlana Osman Pharmacist Pharmacotherapy 04/23/19 Era, [address] [place] [address] Haylie Cheung, Pharmacist Pharmacist 09/11/[address] [place] [id number] Jaiden Holcomb Assigned PCP 05/24/20 MD Jayesh 909 [place], [place] [address] Patience Toussaint NP Assigned Surgical 01/29/21 02/11/22 2945 [facility] Provider [address] [place], [place] [address] Brook Sánchez MD Assigned Infectious 07/04/[address] [place] [address] Disease Provider [place], [place] [address] Osmar Kidd MD Assigned Sleep Provider 09/26/21 [address] [place], [place] [address] Erlinda Barber MD Assigned Neuroscience 10/24/21 420 [facility] Provider 295 [place], [place] [address] Haylie Cheung, Assigned MTM Pharmacist 01/08/22 04/01/[address] [place] [address] Gaye Patrick, RN Personal Advocate & 01/18/22 Liaison (PAL) Kenya Abernathy APRN Assigned Heart and 01/22/22 DIRECTOR OF PHILANTHROPY Vascular Provider [address] [place] [address] documented as of this encounter
--- OUTSIDE RECORDS SUMMARY | 2022-06-15 12:39 | XMS_ITS | Encounter Summary ---
:1945 Author Organization [facility] Address [address] [facility] [place] [address] Care Team Providers Name Role Phone Chastity Montero MD Unavailable [phone] Johnnie Alcocer MD Unavailable Mtm, Ea Complex Unavailable Unavailable Svetlana Osman [facility] Unavailable [phone] Haylie Cheung [facility] Unavailable [phone] Jaiden Holcomb MD Unavailable [phone] Brook Sánchez MD Unavailable Osmar Kidd MD Unavailable Erlinda Barber MD Unavailable Yane Barraza MD Primary Care Provider Haylie Cheung [facility] Unavailable [phone] Gaye Patrick RN Unavailable Unavailable Kenya Abernathy APRN METALLOGRAPHY TEACHER Unavailable [phone] Hayley German OD Unavailable [phone] Encounter Details Date Type Department Care Team Description 02/21/2022 Anticoagulation [facility] Ruben Wayne history of pulmonary embolism (Primary Dx); Therapy Visit Anticoagulation Clin seth Jonas RN microsoft architect current use of ant icoagulant therapy; [address] Atrial fibrillation, unspeci fied type (H) [place] [address] Social History Tobacco Use Types [...] or relatives? How often do you attend alevism or More than 4 times per year 05/03/2021 hindu services? Do you belong to any clubs or No 05/03/2021 organizations such as alevism groups, unions, fraternal or athletic groups, or [...] for the very basics like Not h luicla at all 05/03/2021 food, housing, medical care, [...] place to sleep or slept in a residential (including now)? Education Answer Date Recorded What [...] documented as of this encounter Progress Notes Sumi Wayne RN - 02/21/2022 3:18 PM CDT ANTICOAGULATION MANAGEMENT Charlette Brush 77 year old female is on warfarin with subtherapeutic INR result. (Goal INR 2.0-3.0) Recent labs: (last 7 days) 02/21/22 0000 INR 1.7* ASSESSMENT ??? Source(s): Chart Review and Patient/Caregiver Call ??? Warfarin doses taken: Warfarin taken as instructed ??? Diet: No new diet changes identified ??? New illness, injury, or hospitalization: Yes: Left large toe broken metatarsal ??? Medication/supplement changes: Was taking Tylenol 3-4 times per day but not as much now. Could be causing INR to go down a little now. ??? Signs or symptoms of bleeding or clotting: Yes: On left foot from injury. ??? Previous INR: Therapeutic last 2(+) visits ??? Additional findings: Unable to wear brace, keeping feet up as much as possible. PLAN Recommended plan for temporary change(s) affecting INR Dosing Instructions: booster dose then continue your current warfarin dose with next INR in 1 week Summary As of 02/21/2022 Full warfarin instructions: 02/21: 15 mg; Otherwise 5 mg every Mon, Sat; 10 mg all other days Next INR check: 02/28/2022 Telephone call with Charlette who verbalizes understanding and agrees to plan and who agrees to plan andrepeated back plan correctly Patient to recheck with home meter Education provided: Goal range and significance of current result, Importance of therapeutic range, Importance of following up at instructed interval, Importance of taking warfarin as instructed, Monitoring for clotting signs and symptoms and Contact [phone] with any changes, questions or concerns. 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] microsoft architect current use of 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 [Z79.01] Atrial fibrillation unspecified type (H) [I48.91] Comments: home monitor start up 02/07/22 Anticoagulation Care Providers Provider Role Specialty Phone number Galdino Valdez MD Referring Family Medicine [phone] Jaiden Holcomb MD Referring Internal Medicine [phone] Yane Barraza MD Referring Internal Medicine [phone] Lucero Stevenson MD Responsible Internal Medicine [phone] documented in this encounter Plan of Treatment Upcoming Encounters Date Type Specialty Care Team Description 11/15/2022 Virtual Visit Pharm D Haylie Cheung, [facility] [address] [place] [address] (Wo rk) 11/15/2022 Virtual Visit IM/Peds Yane Barraza MD 3305 [facility] [place] [id number] (Wo rk) 03/03/2023 Virtual Visit Neurology Erlinda Barber MD 420 [facility] 295 [place] [address] (Wo rk) documented as of this encounter Visit Diagnoses Diagnosis 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 embolism - Primary microsoft architect current use of anticoagulant t herapy Atrial fibrillation, unspecified type (H ) documented in this encounter Additional Health Concerns Assessment Noted Time PHQ-9 Depression Total Score: 4 04/12/2019 7:03 AM CDT documented as of this encounter Care Teams Mule Driver Relationship Specialty Start Date End Date Yane Barraza MD PCP - General Internal Medicine 12/08/21 3305 [facility] [place] [address] Chastity Montero MD Dermatology 09/23/14 MD Martha 420 [facility] 98 [place] [address] Johnnie Alcocer MD Surgeon General Surgery 03/23/[address] 300 [place], [place] [id number] Mtm, Ea Complex 04/23/19 Svetlana Osman Pharmacist Pharmacotherapy 04/23/19 Era [facility] [address] [place] [id number] Haylie Cheung, Pharmacist Pharmacist 09/11/19 [facility] [address] [id number] Jaiden Holcomb Assigned PCP 11/8/20 MD Jayesh 909 [place] [address] Brook Sánchez MD Assigned Infectious 07/04/21 9[address] [facility] [address] Disease Provider [place], [place] [address] Osmar Kidd MD Assigned Sleep Provider 09/26/21 [address] [place], [place] [address] Erlinda Barber MD Assigned Neuroscience 10/24/21 420 [facility] Provider 295 [place], [place] [address] Haylie Cheung, Assigned MTM Pharmacist 01/08/22 04/01/22 [facility] 1440 [facility] [place] [address] Gaye Patrick, RN Personal Advocate & 01/18/22 Liaison (PAL) Kenya Abernathy APRN Assigned Heart and 01/22/22 METALLOGRAPHY TEACHER Vascular Provider [address] [place] [address] Hayley German Assigned Surgical 02/12/22 KENNETH Yan Provider 3305 [facility] [place] [id number] documented as of this encounter
--- OUTSIDE RECORDS SUMMARY | 2022-06-15 12:39 | XMS_ITS | Encounter Summary ---
:1945 Author Organization [facility] Address [address] [place] [address] Care Team Providers Name Role Phone Chastity Montero MD Unavailable [phone] Johnnie Alcocer MD Unavailable Mtm, Ea Complex Unavailable Unavailable Svetlana Osman [facility] Unavailable [phone] Haylie Cheung [facility] Unavailable [phone] Jaiden Holcomb MD Unavailable Patience Toussaint NP Unavailable Brook Sánchez MD Unavailable Osmar Kidd MD Unavailable Erlinda Barber MD Unavailable Yane Barraza MD Primary Care Provider Haylie Cheung [facility] Unavailable [phone] Gaye Patrick RN Unavailable Unavailable Kenya Abernathy APRN GROUNDS/MAINTENANCE SPECIALIST Unavailable [phone] Reason for Visit Reason Onset Date Comments Home Care/Hospice 01/26/2022 INR Encounter Details Date Type Department Care Team Description 01/26/2022 Telephone [employer] Yane Barraza MD Home Care/Hospice (INR) [facility] [address] [place] 655087 [facility] [place] [address] [address] [place] [address] [phone] Social History Tobacco Use Types Packs/Day Years [...] or relatives? How often do you attend voodoo or More than 4 times per year 05/03/2021 advent services? Do you belong to any clubs or No 05/03/2021 organizations such as voodoo groups, unions, fraternal or athletic groups, or [...] in contact with No / Unsu re 01/25/2022 11:10 AM CDT someone who was confirmed or suspected to have Coronavirus/COVID-19? documented as of this encounter Miscellaneous Notes Telephone Encounter - Gaye Patrick RN - 01/26/2022 12:33 PM CDT Received a voicemail from Kate Putnam RN with [facility]. She was calling to see if there was an option for patient to have INR checked with home care visits. Patient is established with [facility] [employer]. [phone] Per chart review, [facility] can not provide INR checks for patient. Patient is currently doing outpatient INR checks. Advised patient that we are unable to set up two home care agencies. Patient is currently in the process to have a INR machine approved to do her INRs at home. Called [facility] [facility]. Left message to call back. Will request Retail Customer Service Representative referral to evaluate and assist with INR and transportation needs. Called and spoke to Kate with [facility]. Advised that can not have duel home care agencies. Will work with patient on her INR needs. Called and spoke to [facility] and spoke to CHANDLER [place]. She states that they will be able to check patient's INR sometime in the next 2 weeks. They ordered the INR machine and will be able to add to patient's orders. Sent [employer] message to patient with update. Gaye Kamara RN, BSN documented in this encounter Plan of Treatment Upcoming Encounters Date Type Specialty Care Team Description 11/15/2022 Virtual Visit Pharm Haylie Gonzalez, [facility] 1440 [facility] [place] [id number] (Wo rk) 11/15/2022 Virtual Visit [place] [address] [place] [address] [place] [id number] (Wo rk) 03/03/2023 Virtual Visit Neurology Erlinda Barber MD [address] [place] [address] 295 [place] [address] (Wo rk) documented as of this encounter Visit Diagnoses Not on filedocumented in this encounter Additional Health Concerns Assessment Noted Time PHQ-9 Depression Total Score: 4 04/12/2019 7:03 AM CDT documented as of this encounter Care Teams Laborer Beam House Relationship Specialty Start Date End Date Yane Barraza MD PCP - General Internal Medicine 12/08/[address] [place] [address] [address] [place] [id number] Chastity Montero MD Dermatology 09/23/14 MD Martha 420 [facility] 98 [place] [address] Johnnie Alcocer MD Surgeon General Surgery 03/23/17 [address] [facility] 300 [place] [address] Mtm, Ea Complex 04/23/19 Svetlana Osman Pharmacist Pharmacotherapy 04/23/19 [facility] [place] [address] [place] [id number] Haylie Cheung, Pharmacist Pharmacist 09/11/[address] [place] [phone] Jaiden Holcomb Assigned PCP 05/24/20 MD Jayesh [address] [place] [address] Patience Toussaint NP Assigned Surgical 01/29/21 02/11/22 2945 [facility] Provider [address] [place] [address] Brook Sánchez MD Assigned Infectious 07/04/[address] [place] [address] SE [place] [address] Osmar Kidd MD Assigned Sleep Provider 09/26/21 [address] [place] [address] Erlinda Barber MD Assigned Neuroscience 10/24/21 420 [facility] Provider 295 [place], [place] [address] Haylie Cheung, Assigned MTM Pharmacist 01/08/22 04/01/22 [place] [address] [place] [id number] Gaye Patrick, RN Personal Advocate & 01/18/22 Liaison (PAL) Kenya Abernathy APRN Assigned Heart and 01/22/22 GROUNDS/MAINTENANCE SPECIALIST Vascular Provider [address] [place] [address] documented as of this encounter
--- OUTSIDE RECORDS SUMMARY | 2022-06-15 12:39 | XMS_ITS | Encounter Summary ---
:1945 Author Organization [place] Address [address] [place] [address] Care Team Providers Name Role Phone Chastity Montero MD Unavailable [phone] Johnnie Alcocer MD Unavailable Mtm, Ea Complex Unavailable Unavailable Svetlana Osman [facility] Unavailable [phone] Haylie Cheung [facility] Unavailable [phone] Jaiden Holcomb MD Unavailable Patience Toussaint NP Unavailable Brook Sánchez MD Unavailable Osmar Kidd MD Unavailable Erlinda Barber MD Unavailable Yane Barraza MD Primary Care Provider Haylie Cheung [facility] Unavailable [phone] Gaye Patrick RN Unavailable Unavailable Kenya Abernathy APRN COMMERCIAL LEASING MANAGER Unavailable [phone] Encounter Details Date Type Department Care Team Description 01/25/2022 [facility] Yane Barraza MD [place] 5505 [facility] [address] [facility] [address] [place] [address] [address] [place] [address] [phone] Social History Tobacco Use Types Packs/Day Years [...] or relatives? How often do you attend restorationist or More than 4 times per year 05/03/2021 muslim services? Do you belong to any clubs or No 05/03/2021 organizations such as restorationist groups, unions, fraternal or athletic groups, or [...] this encounter Miscellaneous Notes Telephone Encounter - Saba Bateman CMA - 01/25/2022 11:41 AM CDT Pt requested lipid. Pended Saba Bateman MA documented in this encounter Plan of Treatment Upcoming Encounters Date Type Specialty Care Team Description 11/15/2022 Virtual Visit Pharm Haylie Gonzalez, [facility] 1440 [facility] [place] [address] (Lena max) 11/15/2022 Virtual Visit IM/Peds Yane Barraza MD 1089 [facility] [place] [address] (Lena max) 03/03/2023 Virtual Visit Neurology Erlinda Barber MD 420 [facility] 295 [place] [address] (Lena rk) documented as of this encounter Results Lipid panel reflex to direct LDL Fasting (01/25/2022 11:46 AM CDT) [facility] gist Method Time Signature Cholesterol 117 <200 mg/dL 01/27/2022 [facility] 12:13 AM CDT Triglycerides 92 <150 mg/dL 01/27/2022 [facility] 12:13 AM CDT Direct Measure HDL 55 >=50 mg/dL 01/27/2022 [facility] 12:13 AM CDT LDL Cholesterol 44 <=100 01/27/2022 [facility] Calculated mg/dL 12:13 AM CDT Non HDL 62 <130 mg/dL 01/27/2022 [facility] Cholesterol 12:13 AM CDT Patient Fasting > Yes 01/27/2022 [facility] RY 8hrs? 12:13 AM CDT Specimen Anatomical Collection Method / Collection Time Recei yudy Time (Source) Location / Volume Laterality Blood STRUCTURE OF LEFT Venipuncture / 01/25/2022 11:46 01/14 HAND / Unknown Unknown AM CDT 11:46 AM CDT Narrative [facility] - 01/27/2022 12:13 AM CDT Cholesterol Desirable: ??<200 mg/dL Triglycerides Normal: ??Less than 150 mg/dL Borderline High: ??150-199 mg/dL High: ??200-499 mg/dL Very High: ??Greater than or equal to 50 0 mg/dL Direct Measure HDL Female: ??Greater than or equal to 50 mg /dL Male: ??Greater than or equal to 40 mg/d L LDL Cholesterol Desirable: ??<100mg/dL Above Desirable: ??100-129 mg/dL Borderline High: ??130-159 mg/dL High: ??160-189 mg/dL Very High: ??>= 190 mg/dL Non HDL Cholesterol Desirable: ??130 mg/dL Above Desirable: ??130-159 mg/dL Borderline High: ??160-189 mg/dL High: ??190-219 mg/dL Very High: ??Greater than or equal to 22 0 mg/dL Yane Barraza MD LAB - BLOOD ORDERABLES Performing Organization Address City/State/ZIP Code [place] [phone] Care [facility] [address] Lab (1st floor, no room number) [place], [place] [phone] [facility] [id number] [place] [facility] [address] Lab (no room number, 1st floor of clinic) documented in this encounter Visit Diagnoses Diagnosis Essential hypertension, benign - Primary High cholesterol Pure hypercholesterolemia documented in this encounter Additional Health Concerns Assessment Noted Time PHQ-9 Depression Total Score: 4 04/12/2019 7:03 AM CDT documented as of this encounter Care Teams Animal Cruelty Investigation Supervisor Relationship Specialty Start Date End Date Yane Barraza MD PCP - General Internal Medicine 12/08/[address] [place] [address] [address] [place] [id number] Chastity Montero MD Dermatology 09/23/14 MD Martha 420 [facility] 98 [place], [place] [address] Johnnie Alcocer MD Surgeon General Surgery 03/23/[address] 300 [place] [address] Mtm, Ea Complex 04/23/19 Svetlana Osman Pharmacist Pharmacotherapy 04/23/19 Era, [facility] [address] [place] [id number] Haylie Cheung, Pharmacist Pharmacist 09/11/19 [facility] [address] [place] [address] Jaiden Holcomb Assigned PCP 05/24/20 MD Jayesh [address] [place] [address] Patience Toussaint, VIANEY Assigned Surgical 01/29/21 02/11/22 2945 [facility] Provider [address] [place], [place] [phone] Brook Sánchez MD Assigned Infectious 07/04/21 909 [facility] SE Disease Provider [place], [place] [address] Osmar Kidd MD Assigned Sleep Provider 09/26/21 [address] [place], [place] [address] Erlinda Barber MD Assigned Neuroscience 10/24/21 420 [facility] Provider 295 [place], [place] [address] Haylie Cheung, Assigned MTM Pharmacist 01/08/22 04/01/22 [facility] [address] [facility] [address] [place] [id number] Gaye Patrick, RN Personal Advocate & 01/18/22 Liaison (PAL) Kenya Abernathy APRN Assigned Heart and 01/22/22 COMMERCIAL LEASING MANAGER Vascular Provider [address] [place] [address] documented as of this encounter
--- OUTSIDE RECORDS SUMMARY | 2022-06-15 12:39 | XMS_ITS | Encounter Summary ---
:1945 Author Organization [place] Address [address] [place] [address] Care Team Providers Name Role Phone Chastity Montero MD Unavailable [phone] Johnnie Alcocer MD Unavailable Mtm, Ea Complex Unavailable Unavailable Svetlana Osman [facility] Unavailable [phone] Haylie Cheung [facility] Unavailable [phone] Jaiden Holcomb MD Unavailable Patience Toussaint NP Unavailable Brook Sánchez MD Unavailable Osmar Kidd MD Unavailable Erlinda Barber MD Unavailable Yane Barraza MD Primary Care Provider Haylie Cheung [facility] Unavailable [phone] Gaye Patrick RN Unavailable Unavailable Kenya Abernathy APRN ACQUISITIONS EDITOR Unavailable [phone] Encounter Details Date Type Department Care Team Description 01/25/2022 [facility] Par oxysmal atrial fibrillation (H); [facility] High cholesterol [address] [facility] [address] [place] [address] Social History [...] or relatives? How often do you attend yazdanism or More than 4 times per year 05/03/2021 mormonism services? Do you belong to any clubs or No 05/03/2021 organizations such as yazdanism groups, unions, fraternal or athletic groups, or [...] Visit Pharm Haylie Gonzalez, [facility] [address] [address] (Wo rk) 11/15/2022 Virtual Visit [place] [address] [place] [address] [place] [address] (Wo rk) 03/03/2023 Virtual Visit Neurology Erlinda Barber MD 420 [facility] 295 [place] [address] (Wo rk) documented as of this encounter Procedures Procedure Name Priority Date/Time Associated Diagnosis Comme nts LIPID REFLEX TO Routine 01/25/2022 11:46 High cholesterol Resu lts for this DIRECT LDL PANEL AM CDT procedure a re in the results section. INR POINT OF CARE Routine 01/25/2022 11:22 Paroxysmal atrial R esults for this AM CDT fibrillation (H) procedure a re in the results section. documented in this encounter Results Lipid panel reflex to direct LDL Fasting (01/25/2022 11:46 AM CDT) [facility] Method Time Signature Cholesterol 117 <200 mg/dL [...] STRUCTURE OF LEFT Venipuncture / 01/25/2022 11:46 0708/2021 HAND / Unknown Unknown AM CDT 11:46 [...] City/State/ZIP Code Phon [place] [address] Care Lab [address] Lab (1st floor, no room number) [facility] [place], [place] [phone] [facility] [id number] [place] [facility] [address] Lab (no room number, 1st floor of clinic) (ABNORMAL) INR point of care (01/25/2022 11:22 AM CDT) P athologist Signature INR 4.2 (H) 0.9 - 1.1 01/25/2022 [facility] 11:34 AM CDT Specimen Anatomical Collection Method Collection Time Receive d Time (Source) Location / / Volume Laterality Blood STRUCTURE OF Capillary / 01/25/2022 11:22 01/25/2022 FINGER OF RIGHT Unknown AM CDT 11:22 AM CDT HAND / Unknown Narrative [facility] - 01/25/2022 11:34 AM CDT This test is intended for monitoring Cou madin therapy. Results are not accurate in patients with prolonged INR due to facto r deficiency. Yane Barraza MD LAB - BLOOD ORDERABLES Performing Organization Address City/State/ZIP Code Phon e Number [facility] [place] [address] [place] [address] [address] [facility] [place] [id number] [address] [place] [address] [address] documented in this encounter Visit Diagnoses Diagnosis Paroxysmal atrial fibrillation (H) Atrial fibrillation High cholesterol Pure hypercholesterolemia documented in this encounter Additional Health Concerns Assessment Noted Time PHQ-9 Depression Total Score: 4 04/12/2019 7:03 AM CDT documented as of this encounter Care Teams Head Athletic Trainer/Strength Coach Relationship Specialty Start Date End Date Yane Barraza MD PCP - General Internal Medicine 12/08/[address] [place] [address] [place] [phone] Chastity Montero MD Dermatology 09/23/14 MD Martha [address] [place] [address] Johnnie Alcocer MD Surgeon General Surgery 03/23/[address] [place] [address] Mtm, Ea Complex 04/23/19 Svetlana Osman Pharmacist Pharmacotherapy 04/23/19 Era [facility] [address] [place] [address] Haylie Cheung, Pharmacist Pharmacist 09/11/19 [place] [address] [address] [place] [id number] Jaiden Holcomb Assigned PCP 05/24/20 MD Jayesh 909 [place], [place] [address] Patience Toussaint NP Assigned Surgical 01/29/21 02/11/22 29[address] [facility] Provider [address] [place] [address] Brook Sánchez MD Assigned Infectious 07/04/[address] [place] [address] [place] [address] Osmar Kidd MD Assigned Sleep Provider 09/26/21 [address] [facility] 103 [place] [address] Erlinda Barber MD Assigned Neuroscience 10/24/21 420 [facility] Provider 295 [place], [place] [address] Haylie Cheung, Assigned MTM Pharmacist 01/08/22 04/01/22 [facility] [address] [place] [address] [id number] Gaye Patrick, RN Personal Advocate & 01/18/22 Liaison (PAL) Kenya Abernathy, CLAIMS ADMINISTRATOR Assigned Heart and 01/22/22 ACQUISITIONS EDITOR Vascular Provider [address] [place] [address] documented as of this encounter
--- OUTSIDE RECORDS SUMMARY | 2022-06-15 12:39 | XMS_ITS | Encounter Summary ---
:1945 Author Organization [place] Address [address] [place] [address] Care Team Providers Name Role Phone Chastity Montero MD Unavailable [phone] Johnnie Alcocer MD Unavailable Mtm, Ea Complex Unavailable Unavailable Svetlana Osman [facility] Unavailable [phone] Haylie Cheung [facility] Unavailable [phone] Jaiden Holcomb MD Unavailable [phone] Patience Toussaint NP Unavailable Brook Sánchez MD Unavailable Osmar Kidd MD Unavailable Erlinda Barber MD Unavailable Yane Barraza MD Primary Care Provider Haylie Cheung [facility] Unavailable [phone] Gaye Patrick RN Unavailable Unavailable Kenya Abernathy APRN ADOPTION SOCIAL WORKER Unavailable [phone] Encounter Details Date Type Department Care Team Description 01/25/2022 Travel Social History Tobacco Use Types Packs/Day [...] More than 4 times per year 05/03/2021 rastafarian services? Do you belong to any clubs or No 05/03/2021 organizations such as sabianism groups, unions, fraOpenRoute or athletic groups, or school groups? How [...] Description 11/15/2022 Virtual Visit Pharm Haylie Gonzalez, [facility] [address] [facility] [place] [address] (Wo rk) 11/15/2022 Virtual Visit IM/Peds Yane Barraza MD [address] [employer] [address] [place] [id number] (Wo rk) 03/03/2023 Virtual Visit Neurology Erlinda Barber MD 420 [facility] 295 [place] [address] (Wo rk) documented as of this encounter Visit Diagnoses Not on filedocumented in this encounter Additional Health Concerns Assessment Noted Time PHQ-9 Depression Total Score: 4 04/12/2019 7:03 AM CDT documented as of this encounter Care Teams Web Marketing Strategist Relationship Specialty Start Date End Date Yane Barraza MD PCP - General Internal Medicine 12/08/21 [facility] [employer] [place] [phone] Chastity Montero MD Dermatology 09/23/14 MD Martha 420 [facility] 98 [place], [place] [address] Johnnie Alcocer MD Surgeon General Surgery 03/23/[address] 300 [place], [place] [address] Mtm, Ea Complex 04/23/19 Svetlana Osman Pharmacist Pharmacotherapy 04/23/19 Era, [address] [place] [address] Haylie Cheung, Pharmacist Pharmacist 09/11/[address] [place] [phone] Jaiden Holcomb Assigned PCP 05/24/20 MD Jayesh 909 [place], [place] [address] Patience Toussaint NP Assigned Surgical 01/29/21 02/11/22 2945 [facility] Provider [address] [employer], [place] [phone] Brook Sánchez MD Assigned Infectious 07/04/[address] [place] [address] Disease Provider [place], [place] [address] Osmar Kidd MD Assigned Sleep Provider 09/26/21 [address] [place], [place] [address] Erlinda Barber MD Assigned Neuroscience 10/24/21 420 [facility] Provider 295 [place], [place] 6[address] Haylie Cheung, Assigned MTM Pharmacist 01/08/22 04/01/[address] [place] [address] Gaye Patrick, RN Personal Advocate & 01/18/22 Liaison (PAL) Kenya Abernathy APRN Assigned Heart and 01/22/22 ADOPTION SOCIAL WORKER Vascular Provider [address] [place] [address] documented as of this encounter
--- OUTSIDE RECORDS SUMMARY | 2022-06-15 12:39 | XMS_ITS | Encounter Summary ---
:1945 Author Organization [place] Address [address] [place] [address] Care Team Providers Name Role Phone Chastity Montero MD Unavailable [phone] Johnnie Alcocer MD Unavailable Mtm, Ea Complex Unavailable Unavailable Svetlana Osman [facility] Unavailable [phone] Haylie Cheung [facility] Unavailable [phone] Jaiden Holcomb MD Unavailable Brook Sánchez MD Unavailable Osmar Kidd MD Unavailable Erlinda Barber MD Unavailable Yane Barraza MD Primary Care Provider Haylie Cheung [facility] Unavailable [phone] Gaye Patrick RN Unavailable Unavailable Kenya Abernathy APRN UX SPECIALIST Unavailable [phone] Hayley German OD Unavailable [phone] Encounter Details Date Type Department Care Team Description 02/21/2022 Orders Only [facility] Yane Barraza MD Anticoagulation Clin ic 3[address] [facility] [address] [place] [address] [place] [phone] [place] [id number] (Wo rk) Social History Tobacco Use Types [...] Visit Pharm D Haylie Cheung, [facility] 1440 [facility] [place] [address] (Wo winter) 11/15/2022 Virtual Visit IM/Peds Yane Barraza MD [address] [facility] [place] [address] (Wo winter) 03/03/2023 Virtual Visit Neurology Erlinda Barber MD 420 [facility] 295 [place], [place] [address] (Wo winter) documented as of this encounter Procedures Procedure Name Priority Date/Time Associated Diagnosis Comme nts INR (EXTERNAL Routine 02/21/2022 12:00 AM Results for this RESULT) CDT procedure are i n the results section. documented in this encounter Results (ABNORMAL) INR (External Result) (02/21/2022 12:00 AM CDT) P athologist Signature INR HOME 1.7 (L) 2.000 - [facility] 3.000 [facility] Specimen (Source) Anatomical Location Collection Method / Collectio n Time Received Time / Laterality Volume 02/21/2022 Narrative [facility] - 02/21/2022 3:1 0 PM CDT Yane Barraza MD LAB - HIM EXTERNAL RESULT Performing Organization Address City/State/ZIP Code Phon e Number [facility] [address] [place] [phone] documented in this encounter Visit Diagnoses Not on filedocumented in this encounter Additional Health Concerns Assessment Noted Time PHQ-9 Depression Total Score: 4 04/12/2019 7:03 AM CDT documented as of this encounter Care Teams Transformer Assembly Supervisor Relationship Specialty Start Date End Date Yane Barraza MD PCP - General Internal Medicine 12/08/[address] [place] [place] [address] Chastity Montero MD Dermatology 09/23/14 MD Martha [address] [place] [address] 98 [place], [place] [address] Johnnie Alcocer MD Surgeon General Surgery 03/23/[address] [place], [place] [phone] Mtm, Ea Complex 04/23/19 Svetlana Osman Pharmacist Pharmacotherapy 04/23/19 Era, [facility] [address] [place] [address] Haylie Cheung, Pharmacist Pharmacist 09/11/19 [facility] [address] [place] [address] Jaiden Holcomb Assigned PCP 05/24/20 MD Jayesh 909 [place], [place] [address] Brook Sánchez MD Assigned Infectious 07/04/21 [address] [facility] Disease Provider [place], [place] [address] Osmar Kidd MD Assigned Sleep Provider 09/26/21 [address] [place] [address] Erlinda Barber MD Assigned Neuroscience 10/24/21 [address] [place] [address] [facility] Provider [address] [place], [place] [address] Haylie Cheung, Assigned MTM Pharmacist 01/08/22 04/01/22 [facility] [address] [facility] [address] [place] [phone] Gaye Patrick, RN Personal Advocate & 01/18/22 Liaison (PAL) Kenya Abernathy APRN Assigned Heart and 01/22/22 UX SPECIALIST Vascular Provider [address] [place] [address] Hayley German Assigned Surgical 02/12/22 KENNETH Yan Provider [address] [facility] [address] [place] [phone] documented as of this encounter
--- OUTSIDE RECORDS SUMMARY | 2022-06-15 12:39 | XMS_ITS | Encounter Summary ---
:1945 Author Organization [place] Address [address] [facility] [place] [address] Care Team Providers Name Role Phone Chastity Montero MD Unavailable [phone] Johnnie Alcocer MD Unavailable Mtm, Ea Complex Unavailable Unavailable Svetlana Osman [facility] Unavailable [phone] Haylie Cheung [facility] Unavailable [phone] Jaiden Holcomb MD Unavailable Patience Toussaint NP Unavailable Brook Sánchez MD Unavailable Osmar Kidd MD Unavailable Erlinda Barber MD Unavailable Yane Barraza MD Primary Care Provider Haylie Cheung [facility] Unavailable [phone] Gaye Patrick RN Unavailable Unavailable Kenya Abernathy APRN MATERIAL HANDLING WAREHOUSE SUPERVISOR Unavailable [phone] Hayley German OD Unavailable [phone] Encounter Details Date Type Department Care Team Description 01/25/2022 Medical Correspondence [facility] Scan, [employer] Info Mgmt Srv cs Non-Provider [address] [facility] [place] [address] Social History Tobacco Use Types Packs/Day Years [...] More than 4 times per year 05/03/2021 islam services? Do you belong to any clubs [...] 11/15/2022 Virtual Visit Pharm D Haylie Cheung, [facility] [address] [place] [address] (Wo rk) 11/15/2022 Virtual Visit IM[place] [address] [place] [address] [place] [address] (Wo rk) 03/03/2023 Virtual Visit Neurology Erlinda Barber MD 420 [facility] 295 [place] [address] (Wo rk) documented as of this encounter Visit Diagnoses Not on filedocumented in this encounter Additional Health Concerns Assessment Noted Time PHQ-9 Depression Total Score: 4 04/12/2019 7:03 AM CDT documented as of this encounter Care Teams Detention Attendant Relationship Specialty Start Date End Date Yane Barraza MD PCP - General Internal Medicine 12/08/21 [address] [facility] [address] [place], [place] [phone] Chastity Montero MD Dermatology 09/23/14 MD Martha [address] [facility] [address] [facility] 98 [place], [place] [address] Johnnie Alcocer MD Surgeon General Surgery 03/23/[address] 300 [place], [place] [phone] [place], Ea Complex 04/23/19 Svetlana Osman Pharmacist Pharmacotherapy 04/23/19 Era, [facility] [address] [facility] [address] [place], [place] [phone] Haylie Cheung, Pharmacist Pharmacist 09/11/19 [facility] [address] [facility] [address] [place], [place] [phone] Jaiden Holcomb Assigned PCP 05/24/20 MD Jayesh [address] [place] [address] Patience Toussaint NP Assigned Surgical 01/29/21 02/11/22 2945 [facility] Provider [address] [place], [place] [phone] Brook Sánchez MD Assigned Infectious 07/04/[address] [place] [address] Disease Provider [place], [place] [address] Osmar Kidd MD Assigned Sleep Provider 09/26/21 [address] 103 [place] [address] Erlinda Barber MD Assigned Neuroscience 10/24/21 420 [facility] Provider 295 [place], [place] [address] Haylie Cheung, Assigned MTM Pharmacist 01/08/22 04/01/22 [facility] 14[address] [facility] [place] [phone] Gaye Patrick, RN Personal Advocate & 01/18/22 Liaison (PAL) Kenya Abernathy APRN Assigned Heart and 01/22/22 MATERIAL HANDLING WAREHOUSE SUPERVISOR Vascular Provider [address] [place] [address] Hayley German Assigned Surgical 02/12/22 KENNETH Yan Provider 3305 [facility] [place] [phone] documented as of this encounter
--- OUTSIDE RECORDS SUMMARY | 2022-06-15 12:39 | XMS_ITS | Encounter Summary ---
:1945 Author Organization [place] Address [address] [place] [address]. [place] [address] Care Team Providers Name Role Phone Chastity Montero MD Unavailable [phone] Johnnie Alcocer MD Unavailable Mtm, Ea Complex Unavailable Unavailable Svetlana Osman [facility] Unavailable [phone] Haylie Cheung [facility] Unavailable [phone] Jaiden Holcomb MD Unavailable [phone] Patience Toussaint NP Unavailable Brook Sánchez MD Unavailable Osmar Kidd MD Unavailable Erlinda Barber MD Unavailable Yane Barraza MD Primary Care Provider Haylie Cheung [facility] Unavailable [phone] Gaye Patrick RN Unavailable Unavailable Kenya Abernathy APRN BRANCH ADMINISTRATOR Unavailable [phone] Encounter Details Date Type Department Care Team Description 01/25/2022 [facility] Juanita Burns [facility] [address] [place] [phone] Social History Tobacco Use Types Packs/Day Years [...] or relatives? How often do you attend yarsanism or More than 4 times per year 05/03/2021 orthodox services? Do you belong to any clubs or No 05/03/2021 organizations such as yarsanism groups, unions, fraternal or athletic groups, or [...] 11/15/2022 Virtual Visit Pharm D Haylie Cheung, [facility] 14[address] [facility] [place] [address] (Wo rk) 11/15/2022 Virtual Visit IM[place] [address] [place] [address] [place] [id number] (Wo rk) 03/03/2023 Virtual Visit Neurology Erlinda Barber MD 420 [facility] 295 [place] [address] (Wo rk) documented as of this encounter Visit Diagnoses Not on filedocumented in this encounter Additional Health Concerns Assessment Noted Time PHQ-9 Depression Total Score: 4 04/12/2019 7:03 AM CDT documented as of this encounter Care Teams Manager Floor Relationship Specialty Start Date End Date Yane Barraza MD PCP - General Internal Medicine 12/08/[address] [place] [address] Chastity Montero MD Dermatology 09/23/14 MD Martha 420 [facility] 98 [place], [place] [address] Johnnie Alcocer MD Surgeon General Surgery 03/23/[address] 300 [place], [place] [address] Mtm, Ea Complex 04/23/19 Svetlana Osman Pharmacist Pharmacotherapy 04/23/19 Era, [facility] [address] [facility] [address] [place] [id number] Haylie Cheung, Pharmacist Pharmacist 09/11/19 [facility] [address] [place] [address] Jaiden Holcomb Assigned PCP 05/24/20 MD Jayesh [address] [place] [address] Patience Toussaint NP Assigned Surgical 01/29/21 02/11/22 2945 [facility] Provider [address] [place] [address] Brook Sánchez MD Assigned Infectious 07/04/[address] [place] [address] Disease Provider [place], [place] [address] Osmar Kidd MD Assigned Sleep Provider 09/26/21 [address] [place] [address] Erlinda Barber MD Assigned Neuroscience 10/24/21 420 [facility] Provider 295 [place], [place] [address] Haylie Cheung, Assigned MTM Pharmacist 01/08/22 04/01/22 [facility] 14[address] [facility] [place] [address] Gaye Patrick, RN Personal Advocate & 01/18/22 Liaison (PAL) Kenya Abernathy APRN Assigned Heart and 01/22/22 BRANCH ADMINISTRATOR Vascular Provider [address] [place] [address] documented as of this encounter
--- OUTSIDE RECORDS SUMMARY | 2022-06-15 12:39 | XMS_ITS | Encounter Summary ---
:1945 Author Organization [place] Address [address] [place] [address] Care Team Providers Name Role Phone Chastity Montero MD Unavailable [phone] Johnnie Alcocer MD Unavailable Mtm, Ea Complex Unavailable Unavailable Svetlana Osman [facility] Unavailable [phone] Haylie Cheung [facility] Unavailable [phone] Jaiden Holcomb MD Unavailable Brook Sánchez MD Unavailable Osmar Kidd MD Unavailable Erlinda Barber MD Unavailable Yane Barraza MD Primary Care Provider Haylie Cheung [facility] Unavailable [phone] Gaye Patrick RN Unavailable Unavailable Kenya Abernathy APRN AIRSET CASTER Unavailable [phone] Hayley German OD Unavailable Encounter Details Date Type Department Care Team Description 03/01/2022 Orders Only [facility] Yane Barraza MD Anticoagulation Clin ic 4533 [facility] [address] [facility] [place] [phone] [place] [address] (Wo rk) Social History [...] More than 4 times per year 05/03/2021 shinto services? Do you belong to any clubs [...] Visit Pharm D Haylie Cheung, [facility] 1440 [facility] [place] [address] (Wo winter) 11/15/2022 Virtual Visit IM/Peds Yane Barraza MD 56[address] [facility] [place] [address] (Wo winter) 03/03/2023 Virtual Visit Neurology Erlinda Barber MD 420 [facility] 295 [place], [place] [address] (Wo winter) documented as of this encounter Procedures Procedure Name Priority Date/Time Associated Diagnosis Comme nts INR (EXTERNAL Routine 03/01/2022 12:00 AM Results for this RESULT) CDT procedure are i n the results section. documented in this encounter Results INR (External Result) (03/01/2022 12:00 AM CDT) P athologist Signature INR HOME 2.2 2.000 - [facility] 3.000 [facility] Specimen (Source) Anatomical Location Collection Method / Collectio n Time Received Time / Laterality Volume 03/01/2022 Narrative [facility] - 03/01/2022 9:0 9 AM CDT Yane Barraza MD LAB - HIM EXTERNAL RESULT Performing Organization Address City/State/ZIP Code Phon e Number [id number] [address] [place] [address] documented in this encounter Visit Diagnoses Not on filedocumented in this encounter Additional Health Concerns Assessment Noted Time PHQ-9 Depression Total Score: 4 04/12/2019 7:03 AM CDT documented as of this encounter Care Teams Pressed Or Blown Glass Worker Relationship Specialty Start Date End Date Yane Barraza MD PCP - General Internal Medicine 12/08/[address] [place] [place] [address] Chastity Montero MD Dermatology 09/23/14 MD Martha [address] [place] [address] 98 [place], [place] [address] Johnnie Alcocer MD Surgeon General Surgery 03/23/[address] [place], [place] [phone] Mtm, Ea Complex 04/23/19 Svetlana Osman Pharmacist Pharmacotherapy 04/23/19 Era, [facility] [address] [place] [address] Haylie Cheung, Pharmacist Pharmacist 09/11/19 [facility] [address] [place] [address] Jaiden Holcomb Assigned PCP 05/24/20 MD Jayesh 909 [place] [address] Brook Sánchez MD Assigned Infectious 07/04/[address] [facility] [place] [address] Osmar Kidd MD Assigned Sleep Provider 09/26/21 [address] [place] [address] Erlinda Barber MD Assigned Neuroscience 10/24/21 [address] [facility] [address] [facility] Provider [address] [place], [place] [address] Haylie Cheung, Assigned MTM Pharmacist 01/08/22 04/01/22 [facility] [address] [facility] [address] [place] [phone] Gaye Patrick, RN Personal Advocate & 01/18/22 Liaison (PAL) Kenya Abernathy APRN Assigned Heart and 01/22/22 AIRSET CASTER Vascular Provider [address] [place] [address] Hayley German Assigned Surgical 02/12/22 KENNETH Yan Provider [address] [facility] [address] [place] [phone] documented as of this encounter
--- OUTSIDE RECORDS SUMMARY | 2022-06-15 12:39 | XMS_ITS | Encounter Summary ---
:1945 Author Organization [place] Address [address] [place] [address] Care Team Providers Name Role Phone Chastity Montero MD Unavailable [phone] Johnnie Alcocer MD Unavailable Mtm, Ea Complex Unavailable Unavailable Svetlana Osman [facility] Unavailable [phone] Haylie Cheung [facility] Unavailable [phone] Jaiden Holcomb MD Unavailable Patience Toussaint NP Unavailable Brook Sánchez MD Unavailable Osmar Kidd MD Unavailable Erlinda Barber MD Unavailable Yane Barraza MD Primary Care Provider Haylie Cheung [facility] Unavailable [phone] Gaye Patrick RN Unavailable Unavailable Kenya Abernathy APRN SENIOR FIELD ENGINEER Unavailable [phone] Encounter Details Date Type Department Care Team Description 01/25/2022 Anticoagulation [facility] Janie Figueroa history of pulmonary embolism (Primary Dx); Therapy Visit Anticoagulation Clin ic Kinsey RN technician terminal and repeater current use of ant icoagulant therapy; [address] Atrial fibrillation, unspeci fied type (H) [place] [address] Social History Tobacco Use Types [...] encounter Progress Notes Janie Figueroa RN - 01/25/2022 12:46 PM CDT ANTICOAGULATION MANAGEMENT Charlette Velma Brush 77 year old female is on warfarin with supratherapeutic INR result. (Goal INR 2.0-3.0) Recent labs: (last 7 days) 01/25/22 1122 INR 4.2* ASSESSMENT ??? Source(s): Chart Review and Patient/Caregiver Call ??? Warfarin doses taken: Warfarin taken as instructed ??? Diet: No new diet changes identified ??? New illness, injury, or hospitalization: No ??? Medication/supplement changes: Armoring Machine Operator decreased Lasix dose on 01/20/22 to 20mg daily and patient can take an extra 20mg as needed. ??? Signs or symptoms of bleeding or clotting: Yes: bruise on 1 hand ??? Previous INR: Supratherapeutic ??? Additional findings: Patient states she has mobility issues and cannot always find a parking spot so she has her [employer] bring her to INR appointments. Patient was hoping she could have her INRs at [facility] lab on a walk-in basis but I informed her that would not be a good option at this time. I informed patient that her home INR monitoring application is in process but that it can takesweeks to months for approval. ? ? Also, patient states she has some 3mg and 5mg warfarin tablets but that they are most likely > 1 year old so I advised her to dispose of them and updated her med list and warfarin calendar noting only 10mg tablets on hand. PLAN Recommended plan for no diet, medication or health factor changes affecting INR Dosing Instructions: hold dose then decrease your warfarin dose (14% change) with next INR in 9 days Summary As of 01/25/2022 Full warfarin instructions: 01/25: Hold; Otherwise 5 mg every Mon, Sat; 10 mg all other days Next INR check: 02/03/2022 Telephone call with Charlette who verbalizes understanding and agrees to plan and patient states she wrote new dosing down. Lab visit scheduled Education provided: Importance of consistent vitamin K intake, Monitoring for bleeding signs and symptoms and Contact [phone] with any changes, questions or concerns. 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] [facility] current use of 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 [Z79.01] Atrial fibrillation unspecified type (H) [I48.91] Comments: Anticoagulation Care Providers Provider Role Specialty Phone number Galdino Valdez MD Referring Family Medicine [phone] Jaiden Holcomb MD Referring Internal Medicine [phone] Lucero Stevenson MD Responsible Internal Medicine [phone] documented in this encounter Plan of Treatment Upcoming Encounters Date Type Specialty Care Team Description 11/15/2022 Virtual Visit Pharm Haylie Gonzalez, [facility] [address] [place] [address] (Wo rk) 11/15/2022 Virtual Visit IM/Peds Yane Barraza MD [address] [facility] IP Ghoster [facility] [address] ( rk) 03/03/2023 Virtual Visit Neurology Erlinda Barber MD [address] [facility] [address] [place] [address] ( winter) documented as of this encounter Visit Diagnoses Diagnosis 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 embolism - Primary [facility] current use of anticoagulant t herapy Atrial fibrillation, unspecified type (H ) documented in this encounter Additional Health Concerns Assessment Noted Time PHQ-9 Depression Total Score: 4 04/12/2019 7:03 AM CDT documented as of this encounter Care Teams Sheet Metal Operator Relationship Specialty Start Date End Date Yane Barraza MD PCP - General Internal Medicine 12/08/21 [address] [facility] [place] [address] Chastity Montero MD Dermatology 09/23/14 MD Martha [address] [facility] [address] [place], [place] [address] Johnnie Alcocer MD Surgeon General Surgery 03/23/[address] [place], [place] [phone] Mtkinsey, Ea Complex 04/23/19 Svetlana Osman Pharmacist Pharmacotherapy 04/23/19 Era, [place] [address] [place] [address] Haylie Cheung, Pharmacist Pharmacist 09/11/19 [place] [address] [place] [id number] Jaiden Holcomb Assigned PCP 05/24/20 MD Jayesh [address] [place], [place] [address] Patience Toussaint NP Assigned Surgical 01/29/21 02/11/22 [address] [facility] Provider [address] [place], [place] [phone] Brook Sánchez MD Assigned Infectious 07/04/[address] [place] [address] [place] [address] Osmar Kidd MD Assigned Sleep Provider 09/26/21 [address] [place] [address] Erlinda Barber MD Assigned Neuroscience 10/24/21 [address] [facility] Provider [address] [place] [address] Haylie Cheung, Assigned MTM Pharmacist 01/08/22 04/01/22 [place] [address] [place] [id number] Gaye Patrick, RN Personal Advocate & 01/18/22 Liaison (PAL) Kenya Abernathy APRN Assigned Heart and 01/22/22 SENIOR FIELD ENGINEER Vascular Provider [address] [address] documented as of this encounter
--- OUTSIDE RECORDS SUMMARY | 2022-06-15 12:39 | XMS_ITS | Encounter Summary ---
:1945 Author Organization [place] Address [address] [place] [address] Care Team Providers Name Role Phone Chastity Montero MD Unavailable [phone] Johnnie Alcocer MD Unavailable Mtm, Ea Complex Unavailable Unavailable Svetlana Osman [facility] Unavailable [phone] Haylie Cheung [facility] Unavailable [phone] Jaiden Holcomb MD Unavailable Patience Toussaint NP Unavailable Brook Sánchez MD Unavailable Osmar Kidd MD Unavailable Erlinda Barber MD Unavailable Yane Barraza MD Primary Care Provider Haylie Cheung [facility] Unavailable [phone] Gaye Patrick RN Unavailable Unavailable Kenya Abernathy APRN FURNITURE INSTALLER Unavailable [phone] Encounter Details Date Type Department Care Team Description 01/25/2022 [facility] Yane Barraza MD [place] [address] [facility] [address] [facility] [address] [place] [address] [address] [place] [address] [phone] Social History Tobacco Use Types Packs/Day Years [...] More than 4 times per year 05/03/2021 alevism services? Do you belong to any clubs [...] this encounter Miscellaneous Notes Telephone Encounter - Amelia Richardson RN - 01/25/2022 1:40 PM CDT Kate from [employer] (a service provided through her insurance) called at [phone] on behalf ofpatient. Patient had concerns regarding her INR levels. 2 weeks ago it was 3.3 and today its 4.1. Patient wonders if she should have a vitamin K shot? Informed Kate that patient has discussed her INR with the INR nurse today and does not need a vitmain K shot. She wanted to know the status of patient's home INR machine. Informed her that it is in process but can take weeks to months to be processed. Patient is currently being seen by a home care agency for wound care but they are unable to check her INR. Kate is working on finding a new home care agency that can do wound care and INR that can take her. She will call back to follow up on this when she has more information. Amelia Richardson, RN on 01/25/2022 at 2:09 PM documented in this encounter Plan of Treatment Upcoming Encounters Date Type Specialty Care Team Description 11/15/2022 Virtual Visit Haylie Wakefield, [facility] [address] [place] [id number] (Wo rk) 11/15/2022 Virtual Visit IM/Peds Yane Barraza MD [address] [facility] [place] [address] (Wo rk) 03/03/2023 Virtual Visit Neurology Erlinda Barber MD [address] [facility] 295 [place], [place] [phone] (Wo rk) documented as of this encounter Visit Diagnoses Not on filedocumented in this encounter Additional Health Concerns Assessment Noted Time PHQ-9 Depression Total Score: 4 04/12/2019 7:03 AM CDT documented as of this encounter Care Teams Windmill Technician Relationship Specialty Start Date End Date Yane Barraza MD PCP - General Internal Medicine 12/08/21 [address] [facility] [place] [address] Chastity Montero MD Dermatology 09/23/14 MD Martha [address] [facility] 98 [place], [place] [address] Johnnie Alcocer MD Surgeon General Surgery 03/23/[address] [place], [place] [phone] Mtm, Ea Complex 04/23/19 Svetlana Osman Pharmacist Pharmacotherapy 04/23/19 Era, [facility] [address] [place] [phone] Haylie Cheung, Pharmacist Pharmacist 09/11/19 [facility] [address] [place] [phone] Jaiden Holcomb Assigned PCP 05/24/20 MD Jayesh [address] [place] [address] Patience Toussaint NP Assigned Surgical 01/29/21 02/11/22 [address] [facility] Provider [address] [place] [address] Brook Sánchez MD Assigned Infectious 07/04/[address] [place] [address] [place] [address] Osmar Kidd MD Assigned Sleep Provider 09/26/21 [address] [place] [address] Erlinda Barber MD Assigned Neuroscience 10/24/21 [address] [facility] Provider [address] [place], [place] [address] Haylie Cheung, Assigned MTM Pharmacist 01/08/22 04/01/22 [place] [address] [place] [address] Gaye Patrick, CHANDLER Personal Advocate & 01/18/22 Liaison (PAL) Kenya Abernathy APRN Assigned Heart and 01/22/22 FURNITURE INSTALLER Vascular Provider [address] [address] documented as of this encounter
--- OUTSIDE RECORDS SUMMARY | 2022-06-15 12:40 | XMS_ITS | Encounter Summary ---
:1945 Author Organization [place] Address [address] [place] [address] Care Team Providers Name Role Phone Chastity Montero MD Unavailable [phone] Johnnie Alcocer MD Unavailable Mtm, Ea Complex Unavailable Unavailable Svetlana Osman [facility] Unavailable [phone] Haylie Cheung [facility] Unavailable [phone] Jaiden Holcomb MD Unavailable Patience Toussaint NP Unavailable Brook Sánchez MD Unavailable Osmar Kidd MD Unavailable Erlinda Barber MD Unavailable Yane Barraza MD Primary Care Provider Haylie Cheung [facility] Unavailable [phone] Gaye Patrick RN Unavailable Unavailable Kenya Abernathy APRN [employer] Unavailable [phone] Encounter Details Date Type Department Care Team Description 01/24/2022 Travel Social History Tobacco Use Types Packs/Day [...] or relatives? How often do you attend bahai or More than 4 times per year 05/03/2021 baptist services? Do you belong to any clubs or No 05/03/2021 organizations such as bahai groups, unions, [employer] or athletic groups, or school groups? How [...] in contact with No / Unsu re 01/20/2022 2:09 PM CDT someone who was confirmed or suspected to have Coronavirus/COVID-19? documented as of this encounter Plan of Treatment Upcoming Encounters Date Type Specialty Care Team Description 11/15/2022 Virtual Visit Pharm Haylie Gonzalez, [facility] [address] [facility] [place] [address] (Wo rk) 11/15/2022 Virtual Visit IM/Peds Yane Barraza MD [address] [place] [id number] (Wo rk) 03/03/2023 Virtual Visit Neurology Erlinda Barber MD [address] [facility] 295 [place] [address] (Wo rk) documented as of this encounter Visit Diagnoses Not on filedocumented in this encounter Additional Health Concerns Assessment Noted Time PHQ-9 Depression Total Score: 4 04/12/2019 7:03 AM CDT documented as of this encounter Care Teams Assembly Member Relationship Specialty Start Date End Date Yane Barraza MD PCP - General Internal Medicine 12/08/21 [address] [employer] [place] [id number] Chastity Montero MD Dermatology 09/23/14 MD Martha [address] [facility] 98 [place], [place] [address] Johnnie Alcocer MD Surgeon General Surgery 03/23/[address] [place], [place] [address] Mtm, Ea Complex 04/23/19 Svetlana Osman Pharmacist Pharmacotherapy 04/23/19 Era, [address] [place] [address] Haylie Cheung, Pharmacist Pharmacist 09/11/[address] [place] [phone] Jaiden Holcomb Assigned PCP 05/24/20 MD Jayesh [address] [place], [place] [address] Patience Toussaint NP Assigned Surgical 01/29/21 02/11/22 2945 [facility] Provider [address] [place], [place] [phone] Brook Sánchez MD Assigned Infectious 07/04/[address] [place] [address] Disease Provider [place], [place] [address] Osmar Kidd MD Assigned Sleep Provider 09/26/21 [address] [place], [place] [address] Erlinda Barber MD Assigned Neuroscience 10/24/21 [address] [facility] Provider [address] [place], [place] [address] Haylie Cheung, Assigned MTM Pharmacist 01/08/22 04/01/[address] [place] [address] Gaye Patrick, RN Personal Advocate & 01/18/22 Liaison (PAL) Kenya Abernathy APRN Assigned Heart and 01/22/22 [employer] Vascular Provider [address] [address] documented as of this encounter
--- OUTSIDE RECORDS SUMMARY | 2022-06-15 12:40 | XMS_ITS | Encounter Summary ---
:1945 Author Organization [place] Address [address] [place] [address] Care Team Providers Name Role Phone Chastity Montero MD Unavailable [phone] Johnnie Alcocer MD Unavailable Danni Marcus RN Unavailable Unavailable Mtm, Ea Complex Unavailable Unavailable Svetlana Osman [facility] Unavailable [phone] Haylie Cheung [facility] Unavailable [phone] Jaiden Holcomb MD Unavailable Patience Toussaint NP Unavailable Brook Sánchez MD Unavailable Osmar Kidd MD Unavailable Erlinda Barber MD Unavailable Yane Barraza MD Primary Care Provider Lenore Alcala MD Unavailable Haylie Cheung [facility] Unavailable [phone] Reason for Visit Reason Comments Medication Refill Encounter Details Date Type Department Care Team Description 01/10/2022 Refill [facility] Wilbur Holcomb Medication Refill Yarelis Mcconnell MD [address] [address] [address] [place] [address] [phone] Social History Tobacco Use Types Packs/Day Years [...] or relatives? How often do you attend yazidism or More than 4 times per year 05/03/2021 yarsanism services? Do you belong to any clubs or No 05/03/2021 organizations such as yazidism groups, unions, fraternal or athletic groups, or [...] place to sleep or slept in a fpc (including now)? Education Answer Date Recorded What is the highest level of school Bachelor's degree (e.g., BA, AB, 01/05/2019 you have completed or the highest BS) degree you have received? Sex Assigned at Date Recorded Female 12/24/2018 12:35 PM CDT COVID-19 Exposure Response Date Recorded In the last 10 days, have you been in contact with No / Unsu re 01/05/2022 10:00 AM CDT someone who was confirmed or suspected to have Coronavirus/COVID-19? 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 [address] [place] [phone] Chastity Montero MD Dermatology 09/23/14 MD Martha [address] [place] [address] 98 [place], [place] [address] Johnnie Alcocer MD Surgeon General Surgery 03/23/17 [address] [facility] 300 [place], [place] [address] Danni Marcus, CHANDLER Personal Advocate & 01/09/1901/17 Liaison (PAL) Fernando, Ea Complex 04/23/19 Svetlana Osman Pharmacist Pharmacotherapy 04/23/19 Era, [facility] [address] [place], [place] [phone] Haylie Cheung, Pharmacist Pharmacist 09/11/19 [facility] [address] [place], [place] [phone] Jaiden Holcomb Assigned PCP 05/24/20 MD Jayesh [address] [place] [phone] Patience Toussaint, VIANEY Assigned Surgical 01/29/21 02/11/22 2945 [facility] Provider [address] [place], [place] [phone] Brook Sánchez MD Assigned Infectious 07/04/[address] [place] [address] SE Disease Provider [place], [place] [address] Osmar Kidd MD Assigned Sleep Provider 09/26/21 [address] [place] [address] Erlinda Barber MD Assigned Neuroscience 10/24/[address] [facility] Provider [address] [place], [place] [address] Lenore Alcala MD Assigned Heart and 12/18/21 01/21/22 [address] Vascular Provider [address] [place] [address] Haylie Cheung, Assigned MTM Pharmacist 01/08/22 04/01/22 [facility] 14[address] [facility] [place] [id number] documented as of this encounter
--- OUTSIDE RECORDS SUMMARY | 2022-06-15 12:40 | XMS_ITS | Encounter Summary ---
:1945 Author Organization [facility] Address [address] [place] [address] Care Team Providers Name Role Phone Chastity Montero MD Unavailable [phone] Johnnie Alcocer MD Unavailable Mtm, Ea Complex Unavailable Unavailable Svetlana Osman [facility] Unavailable [phone] Haylie Cheung [facility] Unavailable [phone] Jaiden Holcomb MD Unavailable [phone] Patience Toussaint NP Unavailable Brook Sánchez MD Unavailable Osmar Kidd MD Unavailable Erlinda Barber MD Unavailable Yane Barraza MD Primary Care Provider Lenore Alcala MD Unavailable Haylie Cheung [facility] Unavailable [phone] Gaye Patrick RN Unavailable Unavailable Encounter Details Date Type Department Care Team Description 01/20/2022 [facility] Heart Atri al fibrillation, unspecified type (H); [facility] [place] Acute diastolic heart failur e (H); [address] enetic predisposition to disease [address] [place] [address] Social History Tobacco Use Types Packs/Day Years [...] or relatives? How often do you attend yazidi or More than 4 times per year 05/03/2021 gnosticist services? Do you belong to any clubs or No 05/03/2021 organizations such as yazidi groups, unions, fraternal or athletic groups, or [...] 11/15/2022 Virtual Visit Pharm D Haylie Cheung, [facility] [address] [facility] [place] [address] (Wo winter) 11/15/2022 Virtual Visit [place] [address] [place] [address] [place] [address] (Wo rk) 03/03/2023 Virtual Visit Neurology Erlinda Barber MD [address] [facility] 295 [place] [address] (Wo winter) documented as of this encounter Procedures Procedure Name Priority Date/Time Associated Diagnosis Comme nts TISSUE TRANSGLUTAMINASE Routine 01/20/2022 2:27 Genetic R esults for this SARAH IGA AND IGG PM CDT predisposition to procedu re are in disease the results section. BASIC METABOLIC PANEL Routine 01/20/2022 2:27 Atrial fibrillat ion, Results for this PM CDT unspecified type (H) procedure are in Acute diastolic heart the re sults failure (H) section. documented in this encounter Results Tissue transglutaminase sarah IgA and IgG (01/20/2022 2:27 PM CDT) BlueKai Method Time Signature Tissue 0.6 <7.0 U/mL 01/23/2022 SPECIALTY Transglutaminase 1:36 PM CDT CORE/PROT/E ND Antibody IgA O Comment: Negative- The tTG-IgA assay has limited utility for patients with decreased levels of IgA. Screening for celiac dise ase should include IgA testing to rule out selective IgA deficiency and to guide se lection and interpretation of serological testing. tTG-IgG testing may be positive in celiac disease patients with IgA deficiency. Tissue Transglutaminase 1.9 <7.0 U/mL 01/23/2022 1:36 PM SPECIALTY Antibody IgG CDT CORE/PROT/ENDO Comment: Negative Specimen Anatomical Collection Method / Collection Time Recei yudy Time (Source) Location / Volume Laterality Blood STRUCTURE OF RIGHT Venipuncture / 01/20/2022 2:27 07/0 01/2022 2:27 UPPER LIMB / Unknown PM CDT PM CDT Unknown Yane Barraza MD LAB - BLOOD ORDERABLES Performing Organization Address City/State/ZIP Code Phon e Number SPECIALTY CORE/PROT/ENDO Specialty [place] [address] Core/Prot/Endo [address] [facility] [address], Room 3-580 (ABNORMAL) Basic metabolic panel (01/20/2022 2:27 PM CDT) BlueKai Method Time Signature Sodium 140 133 - 144 01/20/2022 [facility] mmol/L 3:00 PM CDT Potassium 4.0 3.4 - 5.3 01/20/2022 [facility] mmol/L 3:00 PM CDT Chloride 106 94 - 109 01/20/2022 [facility] mmol/L 3:00 PM CDT Carbon Dioxide 29 20 - 32 01/20/2022 [facility] (CO2) mmol/L 3:00 PM CDT Anion Gap 5 3 - 14 01/20/2022 LABORATORY mmol/L 3:00 PM CDT Urea Nitrogen 26 7 - 30 01/20/2022 LABORATORY mg/dL 3:00 PM CDT Creatinine 0.50 (L) 0.52 - 01/20/2022 LABORATORY 1.04 mg/dL 3:00 PM CDT Calcium 9.0 8.5 - 10.1 01/20/2022 LABORATORY mg/dL 3:00 PM CDT Glucose 92 70 - 99 01/20/2022 LABORATORY mg/dL 3:00 PM CDT GFR Estimate >90 >60 01/20/2022 LABORATORY mL/min/1.7 3:00 PM CDT 3m2 Comment: Effective July 06, 2021 eGF Rcr in adults is calculated using the 2020 CKD-EPI creatinine equation which includ es age and gender (Angelina et al., NEJM, DOI: 10.1056/BMXFdu4114044) Specimen Anatomical Collection Method / Collection Time Recei yudy Time (Source) Location / Volume Laterality Blood STRUCTURE OF RIGHT Venipuncture / 01/20/2022 2:27 07/0 01/2022 2:27 UPPER LIMB / Unknown PM CDT PM CDT Unknown Lenore Alcala MD LAB - BLOOD ORDERABLES Performing Organization Address City/State/ZIP Code Phon [place] [address] Care Lab [address] Lab (1st floor, no room number) documented in this encounter Visit Diagnoses Diagnosis Atrial fibrillation, unspecified type (H ) Acute diastolic heart failure (H) Acute diastolic heart failure Genetic predisposition to disease Genetic susceptibility to other disease documented in this encounter Additional Health Concerns Assessment Noted Time PHQ-9 Depression Total Score: 4 04/12/2019 7:03 AM CDT documented as of this encounter Care Teams Kettle Firer Relationship Specialty Start Date End Date Yane Barraza MD PCP - General Internal Medicine 12/08/21 [address] [facility] [place] [address] Chastity Montero MD Dermatology 09/23/14 MD Martha 420 [facility] 98 [place] [address] Johnnie Alcocer MD Surgeon General Surgery 03/23/[address] [place] [address] Mtm, Ea Complex 04/23/19 Svetlana Osman Pharmacist Pharmacotherapy 04/23/19 rEa [facility] [address] [facility] [address] [place] [id number] Haylie Cheung, Pharmacist Pharmacist 09/11/19 [facility] [address] [place] [address] [place], [place] [id number] Jaiden Holcomb Assigned PCP 05/24/20 MD Jayesh 909 [place] [address] Patience Toussaint NP Assigned Surgical 01/29/21 02/11/22 [address] [facility] Provider [address] [place] [address] Brook Sánchez MD Assigned Infectious 07/04/[address] [place] [address] [place] [address] Osmar Kidd MD Assigned Sleep Provider 09/26/21 [address] [place] [address] [place] [address] Erlinda Barber MD Assigned Neuroscience 10/24/21 [address] [facility] Provider [address] [place], [place] [address] Lenore Alcala MD Assigned Heart and 12/18/21 01/21/[address] [place] Vascular Provider [address] [place], [place] [address] Haylie Cheung, Assigned MTM Pharmacist 01/08/22 04/01/22 [facility] [address] [facility] [place] [address] Gaye Patrick, RN Personal Advocate & 01/18/22 Liaison (PAL) documented as of this encounter
--- OUTSIDE RECORDS SUMMARY | 2022-06-15 12:40 | XMS_ITS | Encounter Summary ---
:1945 Author Organization [facility] Address [address] [place] [address] Care Team Providers Name Role Phone Chastity Montero MD Unavailable [phone] Johnnie Alcocer MD Unavailable Mtm, Ea Complex Unavailable Unavailable Svetlana Osman [facility] Unavailable [phone] Haylie Cheung [facility] Unavailable [phone] Jaiden Holcomb MD Unavailable Patience Toussaint NP Unavailable Brook Sánchez MD Unavailable Osmar Kidd MD Unavailable Erlinda Barber MD Unavailable Yane Barraza MD Primary Care Provider Lenore Alcala MD Unavailable Haylie Cheung [facility] Unavailable [phone] Gaye Patrick RN Unavailable Unavailable Encounter Details Date Type Department Care Team Description 01/18/2022 Travel Social History Tobacco Use Types Packs/Day [...] or relatives? How often do you attend mosque or More than 4 times per year 05/03/2021 scientologist services? Do you belong to any clubs or No 05/03/2021 organizations such as mosque groups, unions, [employer] or athletic groups, or school groups? How [...] place to sleep or slept in a usp (including now)? Education Answer Date Recorded What is the highest level of school Bachelor's degree (e.g., BA, AB, 01/05/2019 you have completed or the highest BS) degree you have received? Sex Assigned at Date Recorded Female 12/24/2018 12:35 PM CDT COVID-19 Exposure Response Date Recorded In the last 10 days, have you been in contact with No / Unsu re 01/18/2022 9:30 AM CDT someone who was confirmed or suspected to have Coronavirus/COVID-19? documented as of this encounter Plan of Treatment Upcoming Encounters Date Type Specialty Care Team Description 11/15/2022 Virtual Visit Pharm Haylie Gonzalez, [facility] [address] [facility] [place] [address] (Wo rk) 11/15/2022 Virtual Visit IM/Peds Yane Barraza MD [address] [employer] [place] [id number] (Wo rk) 03/03/2023 Virtual Visit Neurology Erlinda Barber MD 420 [facility] 295 [place] [address] (Wo rk) documented as of this encounter Visit Diagnoses Not on filedocumented in this encounter Additional Health Concerns Assessment Noted Time PHQ-9 Depression Total Score: 4 04/12/2019 7:03 AM CDT documented as of this encounter Care Teams Coloring Machine Operator Relationship Specialty Start Date End Date Yane Barraza MD PCP - General Internal Medicine 12/08/21 [facility] [employer] [place] [id number] Chastity Montero MD Dermatology 09/23/14 MD Martha 420 [facility] 98 [place], [place] [address] Johnnie Alcocer MD Surgeon General Surgery 03/23/[address] [place], [place] [address] Mtm, Ea Complex 04/23/19 Svetlana Osman Pharmacist Pharmacotherapy 04/23/19 Era, [facility] [address] [facility] [address] [place], [place] [id number] Haylie Cheung, Pharmacist Pharmacist 09/11/19 [facility] [address] [facility] [address] [place], [place] [phone] Jaiden Holcomb Assigned PCP 05/24/20 MD Jayesh [address] [place] [address] Patience Toussaint NP Assigned Surgical 01/29/21 02/11/22 2945 [facility] Provider [address] [place], [place] [id number] Brook Sánchez MD Assigned Infectious 07/04/[address] [place] [address] Disease Provider [place], [place] [address] Osmar Kidd MD Assigned Sleep Provider 09/26/21 [address] [place] [address] [place], [place] [address] Erlinda Barber MD Assigned Neuroscience 10/24/21 420 [facility] Provider 295 [place], [place] [address] Lenore Alcala MD Assigned Heart and 12/18/21 01/21/22 [address] [facility] Vascular Provider [address] [place] [address] Haylie Cheung, Assigned MTM Pharmacist 01/08/22 04/01/22 [facility] [address] [facility] [place] [address] Gaye Patrick RN Personal Advocate & 01/18/22 Liaison (PAL) documented as of this encounter
--- OUTSIDE RECORDS SUMMARY | 2022-06-15 12:40 | XMS_ITS | Encounter Summary ---
:1945 Author Organization [facility] Address [address] [place] [address] Care Team Providers Name Role Phone Chastity Montero MD Unavailable [phone] Johnnie Alcocer MD Unavailable Danni Marcus RN Unavailable Unavailable Mtm, Ea Complex Unavailable Unavailable Svetlana Osman [facility] Unavailable [phone] Haylie Cheung [facility] Unavailable [phone] Jaiden Holcomb MD Unavailable [phone] Patience Toussaint NP Unavailable Brook Sánchez MD Unavailable Osmar Kidd MD Unavailable Erlinda Barber MD Unavailable Yane Barraza MD Primary Care Provider Lenore Alcala MD Unavailable Haylie Cheung [facility] Unavailable [phone] Encounter Details Date Type Department Care Team Description 01/11/2022 [facility] Par oxysmal atrial fibrillation [place] [facility] (H) [address] [facility] [address] [place] [address] Social History [...] or relatives? How often do you attend roman catholic or More than 4 times per year 05/03/2021 mormon services? Do you belong to any clubs or No 05/03/2021 organizations such as roman catholic groups, unions, fraternal or athletic groups, [...] place to sleep or slept in a long-term (including now)? Education Answer Date Recorded What is the highest level of school Bachelor's degree (e.g., BA, AB, 01/05/2019 you have completed or the highest BS) degree you have received? Sex Assigned at Date Recorded Female 12/24/2018 12:35 PM CDT COVID-19 Exposure Response Date Recorded In the last 10 days, have you been in contact with No / Unsu re 01/11/2022 3:43 PM CDT someone who was confirmed or suspected to have Coronavirus/COVID-19? documented as of this encounter Plan of Treatment Upcoming Encounters Date Type Specialty Care Team Description 11/15/2022 Virtual Visit Pharm D Haylie Cheung, [facility] [address] [facility] [address] (Wo rk) 11/15/2022 Virtual Visit IM/Peds Yane Barraza MD [address] [facility] [address] [place] [phone] (Wo rk) 03/03/2023 Virtual Visit Neurology Erlinda Barber MD [address] [facility] 295 [place] [address] (Wo rk) documented as of this encounter Procedures Procedure Name Priority Date/Time Associated Diagnosis Comme nts INR POINT OF CARE Routine 01/11/2022 4:00 PM Paroxysmal atrial Results for this CDT fibrillation (H) procedure a re in the results section. documented in this encounter Results (ABNORMAL) INR point of care (01/11/2022 4:00 PM CDT) P athologist Signature INR 3.3 (H) 0.9 - 1.1 01/11/2022 [facility] 4:01 PM CDT Specimen Anatomical Collection Method Collection Time Receive d Time (Source) Location / / Volume Laterality Blood CAPILLARY BLOOD / Capillary / 01/11/2022 4:00 PM 12/16 4:00 Unknown Unknown CDT PM CDT Narrative [facility] - 01/11/2022 4:01 PM CDT This test is intended for monitoring Cou madin therapy. Results are not accurate in patients with prolonged INR due to facto r deficiency. Yane Barraza MD LAB - BLOOD ORDERABLES Performing Organization Address City/State/ZIP Code Phon e Number [facility] [place] [address] [place] [address] [address] LABORATORY [facility] [address], [facility] [phone] [facility] [place] [facility] [address] [place] [address] [address] documented in this encounter Visit Diagnoses Diagnosis Paroxysmal atrial fibrillation (H) Atrial fibrillation documented in this encounter Additional Health Concerns Assessment Noted Time PHQ-9 Depression Total Score: 4 04/12/2019 7:03 AM CDT documented as of this encounter Care Teams Audience Development Manager Relationship Specialty Start Date End Date Yane Barraza MD PCP - General Internal Medicine 12/08/[address] [place] [address] [place] [address] Chastity Montero MD Dermatology 09/23/14 MD Martha 420 [facility] 98 [place], [place] [address] Johnnie Alcocer MD Surgeon General Surgery 03/23/17 [address] [place], [place] [address] Danni Marcus, CHANDLER Personal Advocate & 01/09/1901/17 Liaison (PAL) Mtm, Ea Complex 04/23/19 Svetlana Osman Pharmacist Pharmacotherapy 04/23/19 Era, [facility] [address] [facility] [address] Haylie Cheung, Pharmacist Pharmacist 09/11/19 [facility] [address] [facility] [address] Jaiden Holcomb Assigned PCP 05/24/20 MD Jayesh 909 [place] [address] Patience Toussaint NP Assigned Surgical 01/29/21 02/11/22 2945 [facility] Provider [address] [place] [address] Brook Sánchez MD Assigned Infectious 07/04/[address] [place] [address] SE Disease Provider [place], [place] [address] Osmar Kidd MD Assigned Sleep Provider 09/26/[address] [place] [address] [place] [address] Erlinda Barber MD Assigned Neuroscience 10/24/21 [address] [facility] Provider [address] [place] [address] Lenore Alcala MD Assigned Heart and 12/18/21 01/21/[address] [place] Vascular Provider [address] [place] [address] Haylie Cheung, Assigned MTM Pharmacist 01/08/22 04/01/22 [facility] [address] [facility] [place] [address] documented as of this encounter
--- OUTSIDE RECORDS SUMMARY | 2022-06-15 12:40 | XMS_ITS | Encounter Summary ---
:1945 Author Organization [facility] Address [address] [place] [address] Care Team Providers Name Role Phone Chastity Montero MD Unavailable [phone] Johnnie Alcocer MD Unavailable Mtm, Ea Complex Unavailable Unavailable Svetlana Osman [facility] Unavailable [phone] Haylie Cheung [facility] Unavailable [phone] Jaiden Holcomb MD Unavailable [phone] Patience Toussaint NP Unavailable Brook Sánchez MD Unavailable Osmar Kidd MD Unavailable Erlinda Barber MD Unavailable Yane Barraza MD Primary Care Provider Lenore Alcala MD Unavailable Haylie Cheung [facility] Unavailable [phone] Gaye Patrick RN Unavailable Unavailable Reason for Referral Consultation (Routine: Next available opening) - Pending Review Specialty Diagnoses / Procedures Referred By Contact Refer red To Contact Cardiovascular Disease Diagnoses Atrial fibrillation, unspecified type (H) Acute diastolic heart failure (H) Kenya Abernathy APRN DIRECTOR OF CASEWORK SERVICES [address] [address] Referral ID Status Reason Start Date Expiration Date Visits V isits Requested Authorized [id number] Pending 01/20/2022 01/20/2023 1 1 Review Reason for Visit Reason Comments Follow Up HF Consultation (Routine: Next available opening) - Pending Review Specialty Diagnoses / Procedures Referred By Contact Refer red To Contact Cardiovascular Disease Diagnoses Atrial fibrillation, unspecified type (H) Acute diastolic heart failure (H) Lenore Alcala MD [address] [address] Referral ID Status Reason Start Date Expiration Date Visits V isits Requested Authorized [id number] Pending 12/17/2021 12/17/2022 1 1 Review Encounter Details Date Type Department Care Team Description 01/20/2022 Office Visit [facility] Lenore Alcala MD [address] [id number] Acute diastolic heart failure (H) (Prima ry Dx); Heart Clinic Kenya Abernathy APRN DIRECTOR OF CASEWORK SERVICES [address] [id number] Atrial fibrillation, unspecified type (H ); Valmy CEFERINO on CPAP; [address] [facility] hypertension, benign; [address] Lymphedema [place] [address] Social History Tobacco Use Types Packs/Day Years [...] or relatives? How often do you attend yarsani or More than 4 times per year 05/03/2021 cheondoism services? Do you belong to any clubs or No 05/03/2021 organizations such as yarsani groups, unions, fraternal or athletic groups, or [...] Sign Reading Time Taken Comments Blood Pressure 130/78 01/20/2022 3:48 PM CDT Pulse 85 01/20/2022 2:58 PM CDT Temperature - - Respiratory Rate - - Oxygen Saturation 98% 01/20/2022 2:58 PM CDT Inhaled Oxygen Concentration - - Weight 165.1 kg (364 lb) 01/20/2022 2:58 PM CDT Height 170.2 cm (5' 7) 01/20/2022 2:58 PM CDT Body Mass Index 57.01 01/20/2022 2:58 PM CDT documented in this encounter Patient Instructions Patient InstructionsChKenya shelton APRN CNP - 01/20/2022 3:00 PM CDT Thanks for participating in a office visit with the [facility] Heart clinic today. Doing well on a cardiac standpoint Weights near baseline 360 lb Reviewed results of echocardiogram showing moderate pulmonary hypertension Reduce lasix to 20 mg daily, ok to use additional 20 mg for weight gain, worsening leg edema or shortness of breath Continue with all other medical therapy Continue CPAP Strict low sodium diet Follow up in [address] Alcala or sooner if needed Please call my nurse at [phone] with any questions or concerns. Scheduling phone number: [phone] Reminder: Please bring in all current medications, over the counter supplements and vitamin bottles to your next appointment. documented in this encounter Progress Notes Kenya Abernathy APRN CNP - 01/20/2022 3:00 PM CDT Cardiology Clinic Progress Note Charlette Brush Date of : 1945 Age: [age] year old Reason For Visit: 1 month follow-up Primary Medical Scribe: Dr. Alcala History of Presenting Illness: Charlette Brush is a pleasant 77 year old patient who carries a past medical history significant for atrial fibrillation on chronic anticoagulation, history of recurrent PE/DVT, hypertension, diabetes, morbid obesity, lymphedema, venous hypertension of bilateral lower extremities, obstructive sleep apnea on CPAP, and iron deficiency anemia In November, she was hospitalized at [facility] for an acute decompensated heart failure episode requiring IV diuresis. After discharge, she was noted to be up approximately 10 pounds and Lasix was further uptitrated. She returns to the office today for follow-up. Overall, she offers no cardiac complaint, denies chest pain, shortness of breath, PND, orthopnea, presyncope, syncope, heart racing, or palpitations. Her primary complaint is chronic lymphedema extending from feet to abdomen. She uses lymphedema pumps on a daily basis with the assistance of a home health nurse. She is also receiving long-term dressing changes to a slow healing sacral wound. Upon exam, lungs are clear bilaterally, heart rhythm irregular with regular rate, no neck vein distention, morbidly obese abdomen and lymphedema present up to buttocks/thighs. Echocardiogram on 11/30/2021 ([facility]) showed mild concentric LVH, normal ejection fraction estimated at 60%, normal RV size and function, moderate to severe biatrial enlargement, mild MR and moderate TR. Blood pressure is normal at 130/78, managed on losartan and metoprolol. BMP today showed a sodium of 140, potassium 4.0, BUN 26, creatinine 0.5, GFR greater than 90 BMI 57.01, weight 364 (baseline 362). She does not engage in any routine exercise with the exception of minimal walking Faithful with CPAP Remains compliant with all medications. Assessment and Plan: Charlette Brush is a pleasant 77 year old patient who carries a past medical history significant for atrial fibrillation on chronic anticoagulation, history of recurrent PE/DVT, hypertension, diabetes, morbid obesity, lymphedema, venous hypertension of bilateral lower extremities, obstructive sleep apnea on CPAP, and iron deficiency anemia. Overall, she is doing well on a cardiac standpoint. She does not endorse any symptoms of heart failure or ischemia. Atrial fibrillation is rate controlled on metoprolol and warfarin for anticoagulation. Blood pressures are well controlled. Weights are near baseline. I will decrease her furosemide to 20 mg daily, okay to use additional 20 mg for worsening shortness of breath or weight gain. I recommend she discuss with her PCP a lymphedema evaluation for continued management of her lymphedema. Thank you for allowing me to participate in this delightful patient's care. I have recommended she follow up in [address] Alcala or sooner if needed . Kenya Abernathy APRN CNP Review of Systems: Review of Systems: Skin: Eyes: ENT: Respiratory: Positive for sleep apnea;CPAP Cardiovascular: edema;Positive for Gastroenterology: Genitourinary: Musculoskeletal: Neurologic: Psychiatric: Heme/Lymph/Imm: Endocrine: Physical Exam: GEN: In general, this is a morbidly obese female in no acute distress. HEENT: Pupils equal, round. Sclerae nonicteric. Clear oropharynx. Mucous membranes moist. NECK: Supple, no masses appreciated. Trachea midline. No JVD C/V: Regular rate and irregular rhythm, no murmur, rub or gallop. No S3 or RV heave. RESP: Respirations are unlabored. No use of accessory muscles. Clear to auscultation bilaterally without wheezing, rales, or rhonchi. GI: Abdomen soft, nontender, nondistended. No HSM appreciated. EXTREM: Bilateral LE lymphedema NEURO: Alert and oriented, cooperative. Gait steady with walker. PSYCH: Normal affect. SKIN: Warm and dry. No rashes or petechiae appreciated. Past Medical History: Past Medical History: Diagnosis Date ??? Acute blood loss anemia ??? Adjustment disorder with depressed mood 04/23/2019 Last Assessment & Plan: Patient met with Behavioral Health. Ambivalent if this was helpful. PHQ-9 SCORE 04/11/2019 PHQ-9 Total Score MyChart 4 (Minimal depression) PHQ-9 Total Score 4 Advised patient that this was an intake visit and itmay be beneficial to meet with her for an additional visit. ??? 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 Anxiety 04/12/2019 ??? Benign essential hypertension 07/30/2003 Last Assessment & Plan: Blood pressure well controlled today. BP Readings from Last 3 Encounters: 04/23/19 122/68 03/20/19 (!) 152/84 03/17/19 (!) 144/77 Continue with Losartan 50 mg daily. Patient will trial stopping Lasix which may be helping to control the blood pressure. If she notes an increase in blood pressure >140/90, janice ??? BENIGN HYPERTENSION 07/30/2003 ??? benign positional vertigo 09/08/2004 s/p canolith repositioning 07/21 ??? Binge eating 07/10/2011 ??? Cataract 07/15/2010 Last Assessment & Plan: Followed by Opthamology-considering cataract surgery. Patient has appointment with Retina Specialist at [facility] on 01/11. 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 Cautioned patient she should not be driving. ??? Cellulitis left lower extremity and multiple skin wounds ??? Coagulation disorder (H) Pulmonary embolism 2001 ??? Cortical age-related cataract, both eyes 10/02/2018 ??? Eczema 10/06/2011 Overview: Derm at [facility] ??? Encounter for screening for cardiovascular disorders 08/26/2009 ??? Fall 10/18/2017 ??? GERD (gastroesophageal reflux disease) ??? Hx pulmonary embolism ??? Hypertension ??? Infected wound thigh/perineum, sacral/coccygeal ??? Injury of left sciatic nerve ??? Iron deficiency anemia due to chronic blood loss 04/23/2019 ??? Iron deficiency anemia due to chronic blood loss 04/23/2019 Last Assessment & Plan: Will recheck Ferritin and TIBC levels today. Concern for chronic blood loss due to draining pressure wound for the past year. Last Ferritin-34 in May 2018 Last Iron level-28 in May 2018 Last Iron binding capacity-329 in May 2018. ??? Left foot drop ??? Lower extremity weakness 03/20/2019 Last Assessment & Plan: -pt would benefit from 4 wheeled rolling walker for home use -will complete face to face paperwork ??? Lymphedema ??? Lymphedema of both lower extremities 10/29/2017 Last Assessment & Plan: Continues with Lymphedema therapy three times per week thru home care. Unsure if Lasix is helping to relieve the swelling, but is causing urinary frequency that interferes with ADLs. Will trial stopping the Lasix. If patient notes increased swelling, may take Lasix on a prn basis. If this doesn't help to alleviate the swelling, please notify the clinic. Monitor weight da ??? Macular degeneration (senile) of retina 10/02/2018 Last Assessment & Plan: Appointment with Retina Specialist at [facility] on 01/11/19. ??? Morbid obesity (H) ??? Myopia 07/15/2010 ??? Necrotizing fasciitis (H) 10/28/2017 ??? Necrotizing soft tissue infection debridement 10/18/17 ??? 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 Obese ??? CEFERINO (obstructive sleep apnea) nightly CPAP ??? CEFERINO on CPAP ??? Other lymphedema 11/04/2003 ??? Paroxysmal atrial fibrillation (H) 04/23/2019 ??? Physical deconditioning 12/14/2017 ??? Pressure injury of left buttock, stage 4 (H) 10/29/2017 Pt with fall and prolonged time on the floor in 10/2017 with resultant necrotizing fasciitis. Pt spent almost a year in SNF, still has open wound. Last Assessment & Plan: Pressure wound has been present for one year. Has decreased about 50% in size. Notes discharge daily. Referral placed for Dr. Kajal Huggins at [facility] in [place] per patient request. She has contact i ??? PULM EMBOLISM/INFARCT NOS 11/20/2001 ??? Pulmonary embolism and infarction (H) 11/20/2001 Was on HRT at time PE. Has history of recurrent pe (second when subtherapeutic on coumadin about 2 months after first); however patient states hospital physician during that hospitalization told her* ??? Rhabdomyolysis 10/19/2017 ??? Seizure (H) 03/15/2019 Last Assessment & Plan: Follow-up with Neurology tomorrow. Currently taking Keppra 1000 mg daily and will discuss dosing further tomorrow with Neurologist. Discussed that usual dosing is twice daily. Will discuss with Neurology the need to check Keppra level Fatigue may be attributed to Keppra. If patient will remain on once daily dosing-consider taking this in the evening, so fatigue doesn't int ??? Sepsis (H) ??? Sleep apnea CPAP at night ??? Transient confusion ??? Vitamin D deficiency 11/23/2011 Overview: (Problem list name updated by automated process. Provider to review and confirm.) ??? Weakness left lower limb ??? Wound, open coccyx L Past Surgical History: Past Surgical History: Procedure Laterality Date ??? CATARACT IOL, RT/LT Bilateral 2019 [facility] ??? CHOLECYSTECTOMY ??? CHOLECYSTECTOMY, OPEN 1970 ??? COLONOSCOPY N/A 01/13/2015 Procedure: COLONOSCOPY; Surgeon: Jose Juan Castaneda MD; Location: [facility] OR ??? NERVE REPAIR left ??? OTHER SURGICAL HISTORY sciatic nerve transection ??? OTHER SURGICAL HISTORY cholectomy ??? OTHER SURGICAL HISTORY wound irrigation and debridementposterior upper thigh ??? OTHER SURGICAL HISTORY wound irrigation and debridementleft buttocks ??? PHACOEMULSIFICATION CLEAR CORNEA WITH STANDARD INTRAOCULAR LENS IMPLANT Left 01/22/2019 Procedure: LEFT EYE CATARACT EXTRACTION WITH INTRAOCULAR LENS IMPLANTATION; Surgeon: Bernabe Crespo MD; Location: [facility] ??? PHACOEMULSIFICATION CLEAR CORNEA WITH STANDARD INTRAOCULAR LENS IMPLANT Right 02/20/2019 Procedure: RIGHT CATARACT EXTRACTION WITH INTRAOCULAR LENS IMPLANTATION; Surgeon: Bernabe Crespo MD; Location: [facility] ??? PICC 05/07/2020 ??? TONSILLECTOMY ? ? TONSILLECTOMY & ADENOIDECTOMY Allergies: Cephalexin, Ciprofloxacin, Clindamycin, Lanolin, Lisinopril, Neomycin, Penicillins, Zostavax [zostervaccine live], Bactroban [mupirocin calcium], and Mupirocin Data: All laboratory data reviewed: LAST CHOLESTEROL: Lab Results Component Value Date CHOL 142 09/25/2020 Lab Results Component Value Date HDL 54 09/25/2020 Lab Results Component Value Date LDL 72 09/25/2020 Lab Results Component Value Date TRIG 82 09/25/2020 Lab Results Component Value Date CHOLHDLRATIO 3.6 05/31/2011 LAST BMP: Lab Results Component Value Date NA 140 01/20/2022 NA 138 09/25/2020 Lab Results Component Value Date POTASSIUM 4.0 01/20/2022 POTASSIUM 4.0 09/25/2020 Lab Results Component Value Date CHLORIDE 106 01/20/2022 CHLORIDE 108 09/25/2020 Lab Results Component Value Date TOMA 9.0 01/20/2022 TOMA 9.0 09/25/2020 Lab Results Component Value Date CO2 29 01/20/2022 CO2 26 09/25/2020 Lab Results Component Value Date BUN 26 01/20/2022 BUN 24 09/25/2020 Lab Results Component Value Date CR 0.50 01/20/2022 CR 0.57 09/25/2020 Lab Results Component Value Date GLC 92 01/20/2022 GLC 89 09/25/2020 LAST CBC: Lab Results Component Value Date WBC 6.1 10/01/2021 WBC 5.6 07/19/2019 Lab Results Component Value Date RBC 4.84 10/01/2021 RBC 4.49 07/19/2019 Lab Results Component Value Date HGB 15.1 10/01/2021 HGB 14.9 12/04/2020 Lab Results Component Value Date HCT 45.0 10/01/2021 HCT 42.2 07/19/2019 Lab Results Component Value Date MCV 93 10/01/2021 MCV 94 07/19/2019 Lab Results Component Value Date MCH 31.2 10/01/2021 MCH 30.1 07/19/2019 Lab Results Component Value Date MCHC 33.6 10/01/2021 MCHC 32.0 07/19/2019 Lab Results Component Value Date RDW 13.7 10/01/2021 RDW 14.0 07/19/2019 Lab Results Component Value Date PLT 254 10/01/2021 PLT 219 07/19/2019 documented in this encounter Plan of Treatment Upcoming Encounters Date Type Specialty Care Team Description 11/15/2022 Virtual Visit Pharm Haylie Gonzalez, [facility] [address] [facility] [address] (Wo rk) 11/15/2022 Virtual Visit IM/PedYane Muir MD [address] [facility] [address] (Wo rk) 03/03/2023 Virtual Visit Neurology Erlinda Barber MD [address] [facility] [address] [place], [place] [address] ( rk) Scheduled Referrals Name Type Priority Associated Diagnoses Order S chedule Follow-Up with Referral Routine: Next Atrial fibrillation, Expe cted: Cardiology available opening unspecified ty pe (H) 01/20/2023 Acute diastolic (Approximate ), heart failure (H) Expires: 01/21/2023 documented as of this encounter Visit Diagnoses Diagnosis Acute diastolic heart failure (H) - Prim joe Acute diastolic heart failure Atrial fibrillation, unspecified type (H ) CEFERINO on CPAP Obstructive sleep apnea (adult) (pediatr ic) Essential hypertension, benign Lymphedema of both lower extremities documented in this encounter Additional Health Concerns Assessment Noted Time PHQ-9 Depression Total Score: 4 04/12/2019 7:03 AM CDT documented as of this encounter Care Teams Android Ui Developer Relationship Specialty Start Date End Date Yane Barraza MD PCP - General Internal Medicine 12/08/21 [address] [place] [id number] Chastity Montero MD Dermatology 09/23/14 MD Martha [address] [facility] [address] [place], [place] [address] Johnnie Alcocer MD Surgeon General Surgery 03/23/[address] [place] [address] Mtm, Ea Complex 04/23/19 Svetlana Osman Pharmacist Pharmacotherapy 04/23/19 Era, [facility] [address] [place], [place] [id number] Haylie Cheung, Pharmacist Pharmacist 09/11/19 [facility] [address] [place] [id number] Jaiden Holcomb Assigned PCP 05/24/20 MD Jayesh [address] [place], [place] [address] Patience Toussaint NP Assigned Surgical 01/29/21 02/11/22 [address] [facility] Provider [address] [place], [place] [id number] Brook Sánchez MD Assigned Infectious 07/04/21 [address] [facility] [address] Disease Provider [place], [place] [id number] Osmar Kidd MD Assigned Sleep Provider 09/26/21 [address] [place], [place] [phone] Erlinda Barber MD Assigned Neuroscience 10/24/21 [address] [facility] Provider [address] [place], [place] [address] Lenore Alcala MD Assigned Heart and 12/18/21 01/21/22 [address] Vascular Provider [address] [place], [place] [phone] Haylie Cheung, Assigned MTM Pharmacist 01/08/22 04/01/22 [facility] [address] [place] [id number] Gaye Patrick, CHANDLER Personal Advocate & 01/18/22 Liaison (PAL) documented as of this encounter
--- OUTSIDE RECORDS SUMMARY | 2022-06-15 12:40 | XMS_ITS | Encounter Summary ---
:1945 Author Organization [place] Address [address] [place] [address] Care Team Providers Name Role Phone Chastity Montero MD Unavailable [phone] Johnnie Alcocer MD Unavailable Danni Marcus RN Unavailable Unavailable Mtm, Ea Complex Unavailable Unavailable Svetlana Osman [facility] Unavailable [phone] Haylie Cheung [facility] Unavailable [phone] Jaiden Holcomb MD Unavailable [phone] Patience Toussaint NP Unavailable Brook Sánchez MD Unavailable Osmar Kidd MD Unavailable Erlinda Barber MD Unavailable Yane Barraza MD Primary Care Provider Encounter Details Date Type Department Care Team Description 12/17/2021 Lab [facility] Herman g term current use of 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; Hospital 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 How [...] in contact with No / Unsu re 12/17/2021 2:59 PM CDT someone who was confirmed or suspected to have Coronavirus/COVID-19? documented as of this encounter Plan of Treatment Upcoming Encounters Date Type Specialty Care Team Description 11/15/2022 Virtual Visit Pharm Haylie Gonzalez, [facility] [address] [place] [address] (Wo rk) 11/15/2022 Virtual Visit IM/Peds Yane Barraza MD [address] [facility] [place] [address] (Wo rk) 03/03/2023 Virtual Visit Neurology Erlinda Barber MD 420 [facility] 295 [place], [place] [address] (Wo rk) documented as of this encounter Procedures Procedure Name Priority Date/Time Associated Diagnosis Comme nts INR Routine 12/17/2021 4:17 PM residential current use Results for this CDT of anticoagulant procedure a re in therapy the results Hx Recurrent PE/DVT -- secti on. on Warfarin PHOSPHORUS Routine 12/17/2021 4:17 PM Acute diastolic heart Results for this CDT failure (H) procedure are in Hand cramps the results section. MAGNESIUM Routine 12/17/2021 4:17 PM Acute diastolic heart Results for this CDT failure (H) procedure are in Hand cramps the results section. BASIC METABOLIC Routine 12/17/2021 4:17 PM Acute diastolic hea rt Results for this PANEL CDT failure (H) procedure are in Hand cramps the results section. documented in this encounter Results Magnesium (12/17/2021 4:17 PM CDT) athologist Signature Magnesium 2.1 1.6 - 2.3 12/17/2021 [facility] mg/dL 4:34 PM CDT Specimen Anatomical Collection Method / Collection Time Recei yudy Time (Source) Location / Volume Laterality Blood STRUCTURE OF LEFT Venipuncture / 12/17/2021 4:17 12/17 4:17 UPPER LIMB / Unknown PM CDT PM CDT Unknown Jaiden Holcomb MD LAB - BLOOD ORDERABLES Performing Organization Address City/State/[place] [address] Care Lab [address] Lab (1st floor, no room number) Phosphorus (12/17/2021 4:17 PM CDT) athologist Signature Phosphorus 3.4 2.5 - 4.5 12/17/2021 [facility] mg/dL 4:34 PM CDT Specimen Anatomical Collection Method / Collection Time Recei yudy Time (Source) Location / Volume Laterality Blood STRUCTURE OF LEFT Venipuncture / 12/17/2021 4:17 12/17 4:17 UPPER LIMB / Unknown PM CDT PM CDT Unknown Jaiden Holcomb MD LAB - BLOOD ORDERABLES Performing Organization Address City/State/[place] [address] Care Lab [address] Lab (1st floor, no room number) (ABNORMAL) Basic metabolic panel (Ca, Cl, CO2, Creat, Gluc, K, Na, BUN) (12/17/2021 4:17 PM CDT) Patholo gist Method Time Signature Sodium 139 133 - 144 12/17/2021 [facility]ORATORY mmol/L 4:34 PM CDT Potassium 4.4 3.4 - 5.3 12/17/2021 [facility] mmol/L 4:34 PM CDT Chloride 106 94 - 109 12/17/2021 [facility] mmol/L 4:34 PM CDT Carbon Dioxide 27 20 - 32 12/17/2021 [facility] (CO2) mmol/L 4:34 PM CDT Anion Gap 6 3 - 14 12/17/2021 [facility] mmol/L 4:34 PM CDT Urea Nitrogen 27 7 - 30 12/17/2021 [facility] mg/dL 4:34 PM CDT Creatinine 0.45 (L) 0.52 - 12/17/2021 [facility] 1.04 mg/dL 4:34 PM CDT Calcium 9.2 8.5 - 10.1 12/17/2021 [facility] mg/dL 4:34 PM CDT Glucose 97 70 - 99 12/17/2021 [facility] mg/dL 4:34 PM CDT GFR Estimate >90 >60 12/17/2021 [facility] mL/min/1.7 4:34 PM CDT 3m2 Comment: Effective July 06, 2021 eGF Rcr in adults is calculated using the 2020 CKD-EPI creatinine equation which includ es age and gender (Angelina et al., NEJM, DOI: 10.1056/OFYJdx7668446) Specimen Anatomical Collection Method / Collection Time Recei yudy Time (Source) Location / Volume Laterality Blood STRUCTURE OF LEFT Venipuncture / 12/17/2021 4:17 12/17 4:17 UPPER LIMB / Unknown PM CDT PM CDT Unknown Jaiden Holcomb MD LAB - BLOOD ORDERABLES Performing Organization Address City/State/ZIP Code [place] [address] Care Lab [address] Lab (1st floor, no room number) (ABNORMAL) INR (12/17/2021 4:17 PM CDT) athologist Signature INR 2.91 (H) 0.85 - 1.15 12/17/2021 [facility] 5:04 PM CDT Specimen Anatomical Collection Method / Collection Time Recei yudy Time (Source) Location / Volume Laterality Blood STRUCTURE OF LEFT Venipuncture / 12/17/2021 4:17 12/17 4:17 UPPER LIMB / Unknown PM CDT PM CDT Unknown Jaiden Holcomb MD LAB - BLOOD ORDERABLES Performing Organization Address City/State/ZIP Code Ph[place] [address] Care Lab [address] Lab (1st floor, no room number) documented in this encounter Visit Diagnoses Diagnosis residential current use of anticoagulant t herapy 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 embolism Acute diastolic heart failure (H) Acute diastolic heart failure Hand cramps Cramp of limb documented in this encounter Additional Health Concerns Assessment Noted Time PHQ-9 Depression Total Score: 4 04/12/2019 7:03 AM CDT documented as of this encounter Care Teams School Counsellor Relationship Specialty Start Date End Date Yane Barraza MD PCP - General Internal Medicine 12/08/21 [address] [facility] [address] [place], [place] [id number] Chastity Montero MD Dermatology 09/23/14 MD Martha 420 [facility] 98 [place], [place] [address] Johnnie Alcocer MD Surgeon General Surgery 03/23/[address] [place], [place] [address] Danni Marcus, CHANDLER Personal Advocate & 01/09/1901/17 Liaison (PAL) Kyle King Complex 04/23/19 Svetlana Osman Pharmacist Pharmacotherapy 04/23/19 Era, [facility] [address] [place] [address] Haylie Cheung, Pharmacist Pharmacist 09/11/19 [facility] [address] [place], [place] [id number] Jaiden Holcomb Assigned PCP 05/24/20 MD Jayesh [address] [place] [id number] Patience Toussaint NP Assigned Surgical 01/29/21 02/11/22 29[address] [facility] Provider [address] [place], [place] [phone] Brook Sánchez MD Assigned Infectious 07/04/[address] [place] [address] Disease Provider [place], [place] [address] Osmar Kidd MD Assigned Sleep Provider 09/26/21 [address] [place], [place] [address] Erlinda Barber MD Assigned Neuroscience 10/24/21 420 [facility] Provider 295 [place], [place] [address] documented as of this encounter
--- OUTSIDE RECORDS SUMMARY | 2022-06-15 12:40 | XMS_ITS | Encounter Summary ---
:1945 Author Organization [place] Address [address] [facility] [place] [address] Care Team Providers Name Role Phone Chastity Montero MD Unavailable [phone] Johnnie Alcocer MD Unavailable Danni Marcus RN Unavailable Unavailable Mtm, Ea Complex Unavailable Unavailable Svetlana Osman [facility] Unavailable [phone] Haylie Cheung [facility] Unavailable [phone] Jaiden Holcomb MD Unavailable [phone] Patience Toussaint NP Unavailable Brook Sánchez MD Unavailable Osmar Kidd MD Unavailable Erlinda Barber MD Unavailable Yane Barraza MD Primary Care Provider Encounter Details Date Type Department Care Team Description 12/17/2021 Anticoagulation [facility] Ruben Barone history of pulmonary embolism (Primary Dx); Therapy Visit Anticoagulation Clin ic [place], care home current use of ant icoagulant therapy; [address] RN Atrial fibrillation, unspeci fied type (H) [place] [address] Social History Tobacco Use Types [...] or relatives? How often do you attend methodist or More than 4 times per year 05/03/2021 sikh services? Do you belong to any clubs or No 05/03/2021 organizations such as methodist groups, unions, fraternal or athletic groups, or [...] documented as of this encounter Progress Notes Cony Barone RN - 12/17/2021 5:44 PM CDT ANTICOAGULATION MANAGEMENT Charlette Brush 76 year old female is on warfarin with therapeutic INR result. (Goal INR 2.0-3.0) Recent labs: (last 7 days) 12/17/21 1617 INR 2.91* ASSESSMENT ??? Source(s): Chart Review and Patient/Caregiver [...] health factor changes affecting INR Dosing Instructions: continue your current warfarin dose with next INR in 3 weeks Summary As of 12/17/2021 Full warfarin instructions: 10 mg every day Next INR check: 01/11/2022 Telephone call with Charlette who verbalizes understanding and agrees to plan Check at provider office visit Education provided: Please call back if any changes to your diet, medications or how you've been taking warfarin Plan made per [facility] anticoagulation protocol Cony Barone RN Anticoagulation Clinic 12/17/2021 Anticoagulation Episode Summary Current INR goal: 2.0-3.0 TTR: 68.6 % (1 y) Target end date: Indefinite Send INR reminders to: [facility] [place] Indications 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] care home current use of 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 [Z79.01] Atrial fibrillation unspecified type (H) [I48.91] Comments: Anticoagulation Care Providers Provider Role Specialty Phone number Galdino Valdez MD Referring Family Medicine [phone] Jaiden Holcomb MD Referring Internal Medicine [phone] Lucero Stevenson MD Responsible Internal Medicine [phone] documented in this encounter Plan of Treatment Upcoming Encounters Date Type Specialty Care Team Description 11/15/2022 Virtual Visit Pharm Haylie Gonzalez, [facility] [address] [facility] [place] [address] (Lena max) 11/15/2022 Virtual Visit IM/Yane Mathias MD [address] [facility] [place] [address] (Lena max) 03/03/2023 Virtual Visit Neurology Erlinda Barber MD 420 [facility] 295 [place] [address] (Lena max) documented as of this encounter Visit Diagnoses Diagnosis 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 embolism - Primary meterman current use of anticoagulant t herapy Atrial fibrillation, unspecified type (H ) documented in this encounter Additional Health Concerns Assessment Noted Time PHQ-9 Depression Total Score: 4 04/12/2019 7:03 AM CDT documented as of this encounter Care Teams Mapping Engineer Relationship Specialty Start Date End Date Yane Barraza MD PCP - General Internal Medicine 12/08/[address] [place] [address] [address] [place] [phone] Chastity Montero MD Dermatology 09/23/14 MD Martha [address] [place] [address] 98 [place], [place] [address] Johnnie Alcocer MD Surgeon General Surgery 03/23/17 [address] [facility] 300 [place], [place] [address] Danni Marcus, CHANDLER Personal Advocate & 01/09/1901/17 Liaison (PAL) [place], Ea Complex 04/23/19 Svetlana Osman Pharmacist Pharmacotherapy 04/23/19 Era, [facility] [address] [place] [phone] Haylie Cheung, Pharmacist Pharmacist 09/11/19 [facility] [address] [place] [phone] Jaiden Holcomb Assigned PCP 05/24/20 MD Jayesh [address] [place] [address] Patience Toussaint, VIANEY Assigned Surgical 01/29/21 02/11/22 2945 [facility] Provider [address] [place], [place] [phone] Brook Sánchez MD Assigned Infectious 07/04/[address] [place] [address] [place] [address] Osmar Kidd MD Assigned Sleep Provider 09/26/21 [address] [place], [place] [address] Erlinda Barber MD Assigned Neuroscience 10/24/21 420 [facility] Provider 295 [place] [address] documented as of this encounter
--- OUTSIDE RECORDS SUMMARY | 2022-06-15 12:40 | XMS_ITS | Encounter Summary ---
:1945 Author Organization [place] Address [address] [place] [address] Care Team Providers Name Role Phone Chastity Montero MD Unavailable [phone] Johnnie Alcocer MD Unavailable Danni Marcus RN Unavailable Unavailable Mtm, Ea Complex Unavailable Unavailable Svetlana Osman [facility] Unavailable [phone] [facility] Unavailable [phone] Jaiden Holcomb MD Unavailable [phone] Patience Toussaint NP Unavailable Brook Sánchez MD Unavailable Osmar Kidd MD Unavailable Erlinda Barber MD Unavailable Yane Barraza MD Primary Care Provider Lenore Alcala MD Unavailable Haylie Cheung [facility] Unavailable [phone] Encounter Details Date Type Department Care Team Description 01/11/2022 Travel Social History Tobacco Use Types Packs/Day [...] or relatives? How often do you attend sikhism or More than 4 times per year 05/03/2021 jainism services? Do you belong to any clubs or No 05/03/2021 organizations such as sikhism groups, unions, fraternal or athletic groups, or [...] place to sleep or slept in a mcc (including now)? Education Answer Date Recorded What [...] 11/15/2022 Virtual Visit Pharm D Haylie Cheung, [facility] [address] [facility] [place] [phone] (Wo rk) 11/15/2022 Virtual Visit IM/Peds Yane Barraza MD [address] [employer] [place] [address] (Wo rk) 03/03/2023 Virtual Visit Neurology Erlinda Barber MD 420 [facility] 295 [place] [address] (Wo rk) documented as of this encounter Visit Diagnoses Not on filedocumented in this encounter Additional Health Concerns Assessment Noted Time PHQ-9 Depression Total Score: 4 04/12/2019 7:03 AM CDT documented as of this encounter Care Teams Search Marketing Analyst Relationship Specialty Start Date End Date Yane Barraza MD PCP - General Internal Medicine 12/08/21 [address] [employer] [place] [id number] Chastity Montero MD Dermatology 09/23/14 MD Martha 420 [facility] 98 [place], [place] [address] Johnnie Alcocer MD Surgeon General Surgery 03/23/[address] [place] [address] Danni Marcus, RN Personal Advocate & 01/09/1901/17 Liaison (PAL) Fernando, Ea Complex 04/23/19 Svetlana Osman Pharmacist Pharmacotherapy 04/23/19 Era, [facility] [address] [facility] [address] [place], [place] [phone] Haylie Cheung, Pharmacist Pharmacist 09/11/[address] [facility] [address] [place] [address] Jaiden Holcomb Assigned PCP 05/24/20 MD Jayesh 909 [place], [place] [address] Patience Toussaint, VIANEY Assigned Surgical 01/29/21 02/11/22 2945 [facility] Provider [address] [place] [address] Brook Sánchez MD Assigned Infectious 07/04/[address] [place] [address] Disease Provider [place], [place] [address] Osmar Kidd MD Assigned Sleep Provider 09/26/21 [address] [facility] 103 [place], [place] [address] Erlinda Barber MD Assigned Neuroscience 10/24/21 420 [facility] Provider 295 [place], [place] [address] Lenore Alcala MD Assigned Heart and 12/18/21 01/21/22 [address] [facility] Vascular Provider [address] [place] [id number] Haylei Cheung, Assigned MTM Pharmacist 01/08/22 04/01/[address] [facility] [address] [facility] [place] [address] documented as of this encounter
--- OUTSIDE RECORDS SUMMARY | 2022-06-15 12:40 | XMS_ITS | Encounter Summary ---
:1945 Author Organization [place] Address [address] [place] [address] Care Team Providers Name Role Phone Chastity Montero MD Unavailable [phone] Johnnie Alcocer MD Unavailable Danni Marcus RN Unavailable Unavailable Mtm, Ea Complex Unavailable Unavailable Svetlana Osman [facility] Unavailable [phone] Haylie Cheung [facility] Unavailable [phone] Jaiden Holcomb MD Unavailable [phone] Patience Toussaint NP Unavailable Brook Sánchez MD Unavailable Osmar Kidd MD Unavailable Erlinda Barber MD Unavailable Yane Barraza MD Primary Care Provider Lenore Alcala MD Unavailable Haylie Cheung [facility] Unavailable [phone] Encounter Details Date Type Department Care Team Description 01/10/2022 Travel Social History Tobacco Use Types Packs/Day [...] Virtual Visit Pharm D Haylie Cheung, [facility] [address] [facility] [place] [phone] (Wo rk) 11/15/2022 Virtual Visit IM/Peds Yane Barraza MD [email or web address] [place] [address] (Wo rk) 03/03/2023 Virtual Visit Neurology Erlinda Barber MD 420 [facility] 295 [place] [address] (Wo rk) documented as of this encounter Visit Diagnoses Not on filedocumented in this encounter Additional Health Concerns Assessment Noted Time PHQ-9 Depression Total Score: 4 04/12/2019 7:03 AM CDT documented as of this encounter Care Teams Gauger Chief Relationship Specialty Start Date End Date Yane Barraza MD PCP - General Internal Medicine 12/08/21 [address] [employer] [place] [phone] Chastity Montero MD Dermatology 09/23/14 MD Martha 420 [facility] 98 [place], [place] [address] Johnnie Alcocer MD Surgeon General Surgery 03/23/[address] [place] [address] Danni Marcus, RN Personal Advocate & 01/09/1901/17 Liaison (PAL) Fernando, Ea Complex 04/23/19 Svetlana Osman Pharmacist Pharmacotherapy 04/23/19 Era, [facility] [address] [facility] [address] [place], [place] [phone] Haylie Cheung, Pharmacist Pharmacist 09/11/19 [facility] [address] [facility] [place] [address] Jaiden Holcomb Assigned PCP 05/24/20 MD Jayesh 909 [place], [place] [address] Patience Toussaint, VIANEY Assigned Surgical 01/29/21 02/11/22 2945 [facility] Provider [address] [place] [address] Brook Sánchez MD Assigned Infectious 07/04/[address] [place] [address] Disease Provider [place], [place] [address] Osmar Kidd MD Assigned Sleep Provider 09/26/21 [address] [facility] 103 [place], [place] [address] Erlinda Barber MD Assigned Neuroscience 10/24/21 420 [facility] Provider 295 [place], [place] [address] Lenore Alcala MD Assigned Heart and 12/18/21 01/21/22 [address] [facility] Vascular Provider [address] [place] [id number] Haylie Cheung, Assigned MTM Pharmacist 01/08/22 04/01/22 [facility] [address] [facility] [place] [address] documented as of this encounter
--- OUTSIDE RECORDS SUMMARY | 2022-06-15 12:40 | XMS_ITS | Encounter Summary ---
:1945 Author Organization [place] Address [address] [place] [address] Care Team Providers Name Role Phone Chastity Montero MD Unavailable [phone] Johnnie Alcocer MD Unavailable Danni Marcus RN Unavailable Unavailable Mtm, Ea Complex Unavailable Unavailable Svetlana Osman [facility] Unavailable [phone] Haylie Cheung [facility] Unavailable [phone] Jaiden Holcomb MD Unavailable [phone] Patience Toussaint NP Unavailable Brook Sánchez MD Unavailable Osmar Kidd MD Unavailable Erlinda Barber MD Unavailable Yane Barraza MD Primary Care Provider Encounter Details Date Type Department Care Team Description 12/17/2021 Travel Social History Tobacco Use Types Packs/Day [...] or relatives? How often do you attend jehovah's witness or More than 4 times per year 05/03/2021 tenriism services? Do you belong to any clubs or No 05/03/2021 organizations such as jehovah's witness groups, unions, fraternal or athletic groups, or [...] Description 11/15/2022 Virtual Visit Pharm Haylie Gonzalez, [facility] 1440 [facility] [place] [id number] (Wo rk) 11/15/2022 Virtual Visit IM/Peds Yane Barraza MD 3[address] [facility] [facility] [place] [address] (Wo rk) 03/03/2023 Virtual Visit Neurology Erlinda Barber MD 420 [facility] 295 [place] [address] (Wo rk) documented as of this encounter Visit Diagnoses Not on filedocumented in this encounter Additional Health Concerns Assessment Noted Time PHQ-9 Depression Total Score: 4 04/12/2019 7:03 AM CDT documented as of this encounter Care Teams Cop Winder Relationship Specialty Start Date End Date Yane Barraza MD PCP - General Internal Medicine 12/08/21 [address] [place] [id number] Chastity Montero MD Dermatology 09/23/14 MD Martha 420 [facility] 98 [place] [address] Johnnie Alcocer MD Surgeon General Surgery 03/23/[address] [place] [address] Danni Marcus, RN Personal Advocate & 01/09/1901/17 Liaison (PAL) Fernando, Ea Complex 04/23/19 Svetlana Osman Pharmacist Pharmacotherapy 04/23/19 Era, [facility] [address] [facility] [place] [address] Haylie Cheung, Pharmacist Pharmacist 09/11/19 [facility] [address] [facility] [address] [place], [place] [phone] Jaiden Holcomb Assigned PCP 05/24/20 MD Jayesh 909 [place], [place] [address] Patience Toussaint, VIANEY Assigned Surgical 01/29/21 02/11/22 2945 [facility] Provider [address] [place], [place] [phone] Brook Sánchez MD Assigned Infectious 07/04/21 [address] [facility] [address] Disease Provider [place], [place] [address] Osmar Kidd MD Assigned Sleep Provider 09/26/21 [address] [place] [address] Erlinda Barber MD Assigned Neuroscience 10/24/21 420 [facility] Provider 295 [place] [address] documented as of this encounter
--- OUTSIDE RECORDS SUMMARY | 2022-06-15 12:40 | XMS_ITS | Encounter Summary ---
:1945 Author Organization [facility] Address [address] [place] [address] Care Team Providers Name Role Phone Chastity Montero MD Unavailable [phone] Johnnie Alcocer MD Unavailable Mtm, Ea Complex Unavailable Unavailable Svetlana Osman [facility] Unavailable [phone] Haylie Cheung [facility] Unavailable [phone] Jaiden Holcomb MD Unavailable [phone] Patience Toussaint NP Unavailable Brook Sánchez MD Unavailable Osmar Kidd MD Unavailable Erlinda Barber MD Unavailable Yane Barraza MD Primary Care Provider Lenore Alcala MD Unavailable Haylie Cheung [facility] Unavailable [phone] Gaye Patrick RN Unavailable Unavailable Encounter Details Date Type Department Care Team Description 01/20/2022 Travel Social History Tobacco Use Types Packs/Day [...] or relatives? How often do you attend mandaeism or More than 4 times per year 05/03/2021 restoration services? Do you belong to any clubs or No 05/03/2021 organizations such as mandaeism groups, unions, fraThe Style Club or athletic groups, or school groups? How [...] Virtual Visit Pharm Haylie Gonzalez, [facility] [address] [facility] [place] [address] (Wo rk) 11/15/2022 Virtual Visit IM/Peds Yane Barraza MD [address] [place] [phone] (Wo rk) 03/03/2023 Virtual Visit Neurology Erlinda Barber MD [address] [facility] 295 [place] [address] (Wo rk) documented as of this encounter Visit Diagnoses Not on filedocumented in this encounter Additional Health Concerns Assessment Noted Time PHQ-9 Depression Total Score: 4 04/12/2019 7:03 AM CDT documented as of this encounter Care Teams Email Specialist Relationship Specialty Start Date End Date Yane Barraza MD PCP - General Internal Medicine 12/08/21 [address] [employer] [place] [phone] Chastity Montero MD Dermatology 09/23/14 MD Martha [address] [facility] 98 [place], [place] [address] Johnnie Alcocer MD Surgeon General Surgery 03/23/[address] [place], [place] [address] Mtm, Ea Complex 04/23/19 Svetlana Osman Pharmacist Pharmacotherapy 04/23/19 Era, [facility] [address] [facility] [address] [place], [place] [id number] Haylie Cheung, Pharmacist Pharmacist 09/11/19 [facility] [address] [facility] [address] [place], [place] [phone] Jaiden Holcomb Assigned PCP 05/24/20 MD Jayesh [address] [place] [id number] Patience Toussaint NP Assigned Surgical 01/29/21 02/11/22 [address] [facility] Provider [address] [place], [place] [id number] Brook Sánchez MD Assigned Infectious 07/04/[address] [place] [address] Disease Provider [place], [place] [address] Osmra Kidd MD Assigned Sleep Provider 09/26/21 [address] [place], [place] [address] Erlinda Barber MD Assigned Neuroscience 10/24/21 [address] [facility] Provider 295 [place], [place] [address] Lenore Alcala MD Assigned Heart and 12/18/21 01/21/22 [address] [facility] Vascular Provider [address] [place] [address] Haylie Cheung, Assigned MTM Pharmacist 01/08/22 04/01/22 [facility] [address] [facility] [place] [address] Gaye Patrick RN Personal Advocate & 01/18/22 Liaison (PAL) documented as of this encounter
--- OUTSIDE RECORDS SUMMARY | 2022-06-15 12:40 | XMS_ITS | Encounter Summary ---
:1945 Author Organization [facility] Address [address] [place] [address] Care Team Providers Name Role Phone Chastity Montero MD Unavailable [phone] Johnnei Alcocer MD Unavailable Danni Marcus RN Unavailable Unavailable Mtm, Ea Complex Unavailable Unavailable Svetlana Osman [facility] Unavailable [phone] Haylie Cheung [facility] Unavailable [phone] Jaiden Holcomb MD Unavailable Patience Toussaint NP Unavailable Brook Sánchez MD Unavailable Osmar Kidd MD Unavailable Erlinda Barber MD Unavailable Yane Barraza MD Primary Care Provider Lenore Alcala MD Unavailable Haylie Cheung [facility] Unavailable [phone] Reason for Visit Reason Onset Date Comments Appointment 01/11/2022 Encounter Details Date Type Department Care Team Description 01/11/2022 Telephone [facility] Haylie Cheung, Appointment [facility] [address] [place] [address] [address] [place] [address] [phone] Social History Tobacco Use Types Packs/Day Years [...] or relatives? How often do you attend taoist or More than 4 times per year 05/03/2021 hinduism services? Do you belong to any clubs or No 05/03/2021 organizations such as taoist groups, unions, fraternal or athletic groups, or [...] this encounter Miscellaneous Notes Telephone Encounter - Gisele Reed - 01/12/2022 3:27 PM CDT Patient responded to [employer], she has to check with her ride if that works, and she will get back tome. Tentatively scheduled her 05/17/2022 so time doesn't get booked by others. Will await to hear from patient. Thank you Luis E Carreon Engine Specialist - Complex Care Team Telephone Encounter - Gisele Reed - 01/12/2022 11:22 AM CDT Tried calling patient on cell phone, no VM. Sent patient [employer] message. Thank you Luis E Carreon Engine Specialist - Complex Care Team Telephone Encounter - Haylie Cheung [facility] - 01/11/2022 3:10 PM CDT Patient seen by PCP and MTM today. Recommend follow-up co-visit in 4 months. Routing to Luis E DE SOUZA. Haylie Cheung PharmD Medication Therapy Management Pharmacist documented in this encounter Plan of Treatment Upcoming Encounters Date Type Specialty Care Team Description 11/15/2022 Virtual Visit Pharm D Haylie Cheung [facility] [address] [facility] [place] [phone] (Wo rk) 11/15/2022 Virtual Visit [place] [address] [place] [address] [email or web address] [facility] [place] [phone] (Wo rk) 03/03/2023 Virtual Visit Neurology Erlinda Barber MD [address] [facility] 295 [place], [place] [address] (Wo rk) documented as of this encounter Visit Diagnoses Not on filedocumented in this encounter Additional Health Concerns Assessment Noted Time PHQ-9 Depression Total Score: 4 04/12/2019 7:03 AM CDT documented as of this encounter Care Teams Top Carrier Relationship Specialty Start Date End Date Yane Barraza MD PCP - General Internal Medicine 12/08/21 [address] [employer] [place] [id number] Chastity Montero MD Dermatology 09/23/14 MD Martha [address] [facility] 98 [place], [place] [address] Johnnie Alcocer MD Surgeon General Surgery 03/23/[address] [place] [address] Danni Marcus, RN Personal Advocate & 01/09/1901/17 Liaison (PAL) Fernando, Ea Complex 04/23/19 Svetlana Osman Pharmacist Pharmacotherapy 04/23/19 Era, [facility] [address] [facility] [place] [address] Haylie Cheung, Pharmacist Pharmacist 09/11/[address] [place] [address] Jaiden Holcomb Assigned PCP 05/24/20 MD Jayesh [address] [place], [place] [address] Patience Toussaint NP Assigned Surgical 01/29/21 02/11/22 [address] [facility] Provider [address] [place] [address] Brook Sánchez MD Assigned Infectious 07/04/21 [address] [facility] Disease Provider [place], [place] [address] Osmar Kidd MD Assigned Sleep Provider 09/26/[address] [place], [place] [address] Erlinda Barber MD Assigned Neuroscience 10/24/21 [address] [facility] Provider [address] [place], [place] [address] Lenore Alcala MD Assigned Heart and 12/18/21 01/21/[address] Vascular Provider [address] [place] [address] Haylie Cheung, Assigned MTM Pharmacist 01/08/22 04/01/22 [facility] [address] [place] [address] documented as of this encounter
--- OUTSIDE RECORDS SUMMARY | 2022-06-15 12:40 | XMS_ITS | Encounter Summary ---
:1945 Author Organization [facility] Address [address] [place] [address] Care Team Providers Name Role Phone Chastity Montero MD Unavailable [phone] Johnnie Alcocer MD Unavailable Danni Marcus RN Unavailable Unavailable Mtm, Ea Complex Unavailable Unavailable Svetlana Osman [facility] Unavailable [phone] Haylie Cheung [facility] Unavailable [phone] Jaiden Holcomb MD Unavailable [phone] Patience Toussaint NP Unavailable Brook Sánchez MD Unavailable Osmar Kidd MD Unavailable Erlinda Barber MD Unavailable Yane Barraza MD Primary Care Provider Lenore Alcala MD Unavailable Haylie Cheung [facility] Unavailable [phone] Reason for Visit Reason Comments Medication Therapy Management Encounter Details Date Type Department Care Team Description 01/11/2022 Office Visit [facility] Haylie Cheung Atria l fibrillation, unspecified type (H) (Primary Dx); Clinic Yarelis Rojas [facility] Morbid obesity -- BMI 55-60; [address] [place] [address] [address] [place] on CPAP; [facility] [place] [address] Intermittent pain; [address] Essential hypertension, josy gn; [place], [place] [address] (Work) Lymphedema of both lower extremities; [phone] Acute jyothi stolic heart failure (H); 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 Medication Therapy Management (MTM) Encounter ASSESSMENT: Medication Adherence/Access: No issues identified Weight management: future may want to discuss possible option for weight loss. CEFERINO: stable ?? Pain: stable ?? CHF/Afib/Lymphedema: BP today is at goal < 140/90 but not < 130/80. Suggest change of metoprolol tartrate to succinate to prevent missed doses and improve consistency. We will continue to monitor, blood pressure, has follow-up with cardiology coming up. Recurrent PE: INR goal 2-3, last INR at goal but recommend repeat today and was not at goal. Continue to work with INR team. However for convenience patient may benefit from home INR machine. ?? Anemia: stable Seizure: stable. Continue with neurology. ?? Eczema/Wound: Ct following with ID specialist recommendation of diet and supplements. Patient may stay on probiotic if she prefers. ?? Supplements/Osteoporosis screening: patient likely benefits from repeat DEXA. Suggest reducing fish oil due to lack of indication and increase bleed risk. Vaccines: candidate for covid booster. Suggest she follow-up with with ordnance keeper on Shingrix as we previously discussed. Constipation: per PCP recommend transglutaminase IgA and IgG monitoring annually but given previous low levels then does not need to eat gluten-free. However for further discussion patient prefers to and denies any change needed for constipation regimen. Hyperlipidemia: discussed risk and benefits of statin therapy, as mentioned below patient prefers tostay on for now. PLAN: Vaccines: 1. 2nd Covid booster today 2. Talk to your ordnance keeper about the new shingles shot, shingrix. ?? Labs: 1. INR today as planned 2. add a lab for the history of celiac gene (Tissue transglutaminase sarah IgA and IgG) ?? Diet: 1. If you prefer to continue to eat gluten free you may. Let us know if constipation worsens. ?? Cholesterol: 1. You can discuss if the atorvastatin is needed to continue when you meet with the outsole rounder. IFthey do want you to stay on this and at this dose, then ask for a new Rx of the 20mg tablet to avoiding cutting tablets. ?? Atrial fibrillation: 1. Change metoprolol IR 25 mg tablet to extended release 25 mg tablet, take 1 tablet by mouth ONCE daily. 2. We will send a message to the INR team to see if you can get a home INR machine. ?? Supplements: 1. Decrease fish oil to just 1 capsule a day to avoid risk of bleeding as you are on warfarin ?? Next care team visit: 4 months, the master scheduler will contact you to set up the next visit. SUBJECTIVE/OBJECTIVE: Charlette Brush is a 77 year old female coming in for a follow-up visit. Today's visit is a co-visit with Dr. Barraza. Today's visit is a follow-up MTM visit from 05/06/2021, first of 2021 accompanied with health aide today Reason for visit: establishing with new primary care provider. She has a bottles of furosemide, atorvastatin and metoprolol that are new and needs refills per patient. Allergies/ADRs: Reviewed in chart Past Medical History: Reviewed in chart Tobacco: She reports that she has never smoked. She has never used smokeless tobacco. Alcohol: not currently using Medication Adherence/Access: manages her own medications. Takes vitamins 3 hours after morning medications, and takes Rx Day to day pulls from the bottles. Wound care - she reports receives supplies every few days and goes into Wound clinic in [facility]. [facility] recently for the past few months. She has has a nurse that comes in periodically, unclear what agency and how often they are coming from patient's report. The patient fills medications at [facility]: NO, fills medications at [facility]. Weight Management: Current medication(s) include: none. We did not review in detail today. Nutrition/Eating Habits: n/a Exercise/Activity: n/a Wt Readings from Last 4 Encounters: 01/11/22 (!) 362 lb 9.6 oz (164.5 kg) 12/17/21 (!) 361 lb (163.7 kg) 09/21/21 (!) 360 lb (163.3 kg) 09/01/21 (!) 373 lb (169.2 kg) Estimated body mass index is 56.79 kg/m?? as calculated from the following: Height as of an earlier encounter on 01/11/22: 5' 7 (1.702 m). Weight as of an earlier encounter on 01/11/22: 362 lb 9.6 oz (164.5 kg). CEFERINO: She is using the CPAP at night. 7-9 hours of sleep per night with the CPAP on. She reports feeling well rested. Specialist: Dr. Kidd, Sleep Medicine follow-up on 09/21/2021. ?? Intermittent pain: Current medications include: acetaminophen 500mg/1 tablet at bedtime most days, but will take more if she goes to the wound clinic as this can cause her some mild-moderate pain. She feels this is effective. ?? CHF/Afib/Lymphedema: presented to [facility] and discharged 12/[address] Holcomb stopped Jardiance on 12/06/21. Patient did not want to be on Jardiance concern for UTI. Cardiology consult on 12/17/[address] Alcala. In any case recommend increasing Lasix to 40 mg daily. Labs and JOI follow-up in 1 month. ECHO 2018 EF 55-60% Current medications include furosemide 40 mg daily, losartan 50mg every day AM, metoprolol 12.5 mg twice daily. Lymphedema clinic still. Has lymphedema pump/tube that she wears every day which a home director of career resources helps her put on daily. She has noticed increased urination but home weight is up and down not necessarily less. BP Readings from Last 3 Encounters: 01/11/22 138/82 12/17/21 118/88 09/21/21 130/70 Hyperlipidemia: Current therapy includes atorvastatin 20mg daily (decreased on 12/06 from 40 mg daily). She reports she has always had good cholesterol so did not understand why this was started. She seemed to want to come off statin but she has a cardiology visit coming up and she prefers to first wait to see the work up from that before deciding. Recent Labs Lab Test 09/25/20 1025 01/09/19 1053 CHOL 142 123 HDL 54 49* LDL 72 58 TRIG 82 82 Recurrent PE: Current medication is wafarin in the evening as directed by INR clinic. Per Dr. Felipe recommendation lifelong therapy. Denies any bleeding concerns. Has INR recheck planned for today. Patient is interested in home INR machine but not covered from before. Anemia: Hx of iron deficiency induced anemia. Current medication is ferrous sulfate 325mg every other day with breakfast (along with vitamin C). Denies any side effects. Lab Results Component Value Date HGB 15.1 10/01/2021 IRON 71 10/01/2021 VIOLETTA 42 10/01/2021 VIOLETTA 41 10/01/2021 B12 624 03/27/2020 FOLIC 18.9 03/09/2020 ?? Seizure: Current medication is levetiracetam 500mg twice a day. S/E: none. Denies any new seizures that patient is aware of. Specialist: Dr. Barber, Neurology, follows annually. Eczema/Wound: She had wound vac for a few months. 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 Shehas a chronic L ischial wound. The slow heal as thought to be due to lymphedema and habitus. She also notes having rash ulcer on bottom and groin - comes and goes for a few days. Uses Nystatin products for it. Medications: cetirizine 10 mg twice daily (she reports for inflamed skin per public improvement inspector), hydrocortisone 2.5% ointment PRN, triamcinoloine ointment as needed, nystatin cream or powder for wound healing/infection which she feels is highly effective. Wound vac removed. Specialist: Patience Toussaint, Vascular Surgery. Dr. John and Dr. Sánchez/ID specialist. ?? Supplements/Osteoporosis screening: Currently taking vitamin D 5000 units every day, MV comparable to Centrum Silver 1 tablet every day, Preservision/Luteine 1 cap every day for macular degeneration, vitamin C 1000 mg daily, Fish oil 2g daily, Zinc 50 mg daily, and Renew Life Probiotic daily. Her dietary Calcium reported from the past which she denies any change was ~ 2 glasses milk, cottagecheese, protein shake daily (Pure Protein shakes). Normal DEXA scan 2012. Lab Results Component Value Date VITDT 56 10/01/2021 VITDT 58 12/04/2020 VITDT 54 01/01/2016 VITDT 63 12/30/2014 Constipation: she reports rotating the docusate 100 mg daily as needed and bisacodyl as needed. She feels this is effective majority of the time. She is having daily bowel movement but reports needs ifshe gets constipated that can cause issues with her wound bandages. She reports her constipation hasworsened due to changing to gluten-free. She history of positive gene for Celiac but denies any symptoms for Celiac. However, she would like to stay gluten-free for now still. Vaccines: Most Recent Immunizations Administered Date(s) Administered ??? COVID-19,PF,Pfizer (12+ Yrs) 05/13/2021 ??? COVID-19,PF,Pfizer 12+ Yrs (2021 and After) 01/11/2022 ??? FLU 6-35 months 04/19/2010 ??? Influenza (High Dose) 3 valent vaccine 04/23/2019 ??? Influenza (IIV3) PF 04/26/2012 ??? Influenza, Quad, High Dose, Pf, 65yr+ (Fluzone HD) 05/13/2021 ? ? Pneumo Conj 13-V (2009&after) 12/30/2014 ??? Pneumococcal 23 valent 12/06/2011 ??? TD (ADULT, 7+) 08/27/2004 ??? TDAP Vaccine (Adacel) 12/30/2014 ??? Td (Adult), Adsorbed 08/27/2004 Today's Vitals: BP Readings from Last 1 Encounters: 01/11/22 138/82 Pulse Readings from Last 1 Encounters: 01/11/22 97 Wt Readings from Last 1 Encounters: 01/11/22 (!) 362 lb 9.6 oz (164.5 kg) Ht Readings from Last 1 Encounters: 01/11/22 5' 7 (1.702 m) Estimated body mass index is 56.79 kg/m?? as calculated from the following: Height as of an earlier encounter on 01/11/22: 5' 7 (1.702 m). Weight as of an earlier encounter on 01/11/22: 362 lb 9.6 oz (164.5 kg). Temp Readings from Last 1 Encounters: 01/11/22 97.9 ??F (36.6 ??C) (Tympanic) I spent 80 minutes with this patient today. All changes were made via verbal approval with Yane Barraza MD. A copy of the visit note was provided to the patient's provider(s). The patient was given a summary of these recommendations. See Provider note/AVS from today. Haylie Cheung PharmD Medication Therapy Management Pharmacist Medication Therapy Recommendations Acute diastolic heart failure (H) Current Medication: metoprolol succinate ER (TOPROL XL) 25 MG 24 hr tablet Rationale: More effective medication available - Ineffective medication - Effectiveness Recommendation: Change Medication Formulation Status: Accepted per Provider Takes dietary supplements Current Medication: [place]okato-3 Fatty Acids (FISH OIL PO) Rationale: Dose too high - Dosage too high - Safety Recommendation: Decrease Dose Status: Accepted per Provider Vaccine counseling Rationale: Preventive therapy - Needs additional medication therapy - Indication Recommendation: Order Vaccine - PFIZER-BIONT COVID-19 VAC-BRODY IM Status: Accepted per Provider documented in this encounter Plan of Treatment Upcoming Encounters Date Type Specialty Care Team Description 11/15/2022 Virtual Visit Pharm D Haylie Cheung, [facility] [address] [facility] [address] (Wo rk) 11/15/2022 Virtual Visit IM/Peds Yane Barraza MD [address] [employer] [place] [phone] (Wo rk) 03/03/2023 Virtual Visit Neurology Erlinda Barber MD 420 [facility] 295 [place], [place] [id number] (Wo rk) documented as of this encounter Visit Diagnoses Diagnosis Atrial fibrillation, unspecified type (H ) - Primary Morbid obesity -- BMI 55-60 Morbid obesity CEFERINO on CPAP Obstructive sleep apnea (adult) (pediatr ic) Intermittent pain Generalized pain Essential hypertension, benign Lymphedema of both lower extremities Acute diastolic heart failure (H) Acute diastolic heart failure 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 embolism Iron deficiency anemia, unspecified iron deficiency anemia type Seizure (H) Other convulsions Eczema, unspecified type Open wound Open wound(s) (multiple) of unspecified site(s), without mention of complication Takes dietary supplements Screening for osteoporosis Special screening for osteoporosis Vaccine counseling Constipation, unspecified constipation t ype Screening for hyperlipidemia Screening for lipoid disorders documented in this encounter Additional Health Concerns Assessment Noted Time PHQ-9 Depression Total Score: 4 04/12/2019 7:03 AM CDT documented as of this encounter Care Teams Anodiser Relationship Specialty Start Date End Date Yane Barraza MD PCP - General Internal Medicine 12/08/21 [facility] [employer] [place] [address] Chastity Montero MD Dermatology 09/23/14 MD Martha [address] [facility] 98 [place], [place] [address] Johnnie Alcocer MD Surgeon General Surgery 03/23/[address] [place], [place] [id number] Danni Marcus, CHANDLER Personal Advocate & 01/09/1901/17 Liaison (PAL) Fernando, Ea Complex 04/23/19 Svetlana Osman Pharmacist Pharmacotherapy 04/23/19 Era, [facility] [address] [place], [place] [phone] Haylie Cheung, Pharmacist Pharmacist 09/11/19 [facility] [address] [facility] [address] [place], [place] [phone] Jaiden Holcomb Assigned PCP 05/24/20 MD Jayesh [address] [place] [address] Patience Toussaint, VIANEY Assigned Surgical 01/29/21 02/11/22 2945 [facility] Provider [address] [place] [address] Brook Sánchez MD Assigned Infectious 07/04/[address] [place] [address] Disease Provider [place], [place] [address] Osmar Kidd MD Assigned Sleep Provider 09/26/21 [address] [place], [place] [address] Erlinda Barber MD Assigned Neuroscience 10/24/21 420 [facility] Provider [address] [place], [place] [address] Lenore Alcala MD Assigned Heart and 12/18/21 01/21/22 [address] [facility] Vascular Provider [address] [place] [id number] Haylie Cheung, Assigned MTM Pharmacist 01/08/22 04/01/22 [facility] [address] [facility] [place] [address] documented as of this encounter
--- OUTSIDE RECORDS SUMMARY | 2022-06-15 12:40 | XMS_ITS | Encounter Summary ---
:1945 Author Organization [place] Address [address] [place] [address] Care Team Providers Name Role Phone Chastity Montero MD Unavailable [phone] Johnnie Alcocer MD Unavailable Danni Marcus RN Unavailable Unavailable Mtm, Ea Complex Unavailable Unavailable Svetlana Osman [facility] Unavailable [phone] Haylie Cheung [facility] Unavailable [phone] Jaiden Holcomb MD Unavailable [phone] Patience Toussaint NP Unavailable Brook Sánchez MD Unavailable Osmar Kidd MD Unavailable Erlinda Barber MD Unavailable Yane Barraza MD Primary Care Provider Lenore Alcala MD Unavailable Encounter Details Date Type Department Care Team Description 01/05/2022 Travel Social History Tobacco Use Types Packs/Day [...] More than 4 times per year 05/03/2021 protestant services? Do you belong to any clubs or No 05/03/2021 organizations such as quaker groups, unions, fraChu Shu or athletic groups, or school groups? How [...] Virtual Visit Pharm Haylie Gonzalez, [facility] [address] [place] [address] [place] [address] (Wo rk) 11/15/2022 Virtual Visit [place] [address] [place] [address] [facility] [place] [id number] (Wo rk) 03/03/2023 Virtual Visit Neurology Erlinda Barber MD 420 [facility] 295 [place] [address] (Wo rk) documented as of this encounter Visit Diagnoses Not on filedocumented in this encounter Additional Health Concerns Assessment Noted Time PHQ-9 Depression Total Score: 4 04/12/2019 7:03 AM CDT documented as of this encounter Care Teams Sand Worker Relationship Specialty Start Date End Date Yane Barraza MD PCP - General Internal Medicine 12/08/21 [address] [employer] [place] [id number] Chastity Montero MD Dermatology 09/23/14 MD Martha 420 [facility] 98 [place], [place] [address] Johnnie Alcocer MD Surgeon General Surgery 03/23/[address] [place], [place] [address] Danni Marcus, CHANDLER Personal Advocate & 01/09/1901/17 Liaison (PAL) Fernando, Ea Complex 04/23/19 Svetlana Osman Pharmacist Pharmacotherapy 04/23/19 Era, [facility] [address] [facility] [place] [address] Haylie Cheung, Pharmacist Pharmacist 09/11/19 [facility] [address] [facility] [address] [place], [place] [phone] Jaiden Holcomb Assigned PCP 05/24/20 MD Jayesh 909 [place], [place] [address] Patience Toussaint, VIANEY Assigned Surgical 01/29/21 02/11/22 2945 [facility] Provider [address] [place], [place] [id number] Brook Sánchez MD Assigned Infectious 07/04/[address] [place] [address] Disease Provider [place], [place] [address] Osmar Kidd MD Assigned Sleep Provider 09/26/21 [address] [place], [place] [address] Erlinda Barber MD Assigned Neuroscience 10/24/21 420 [facility] Provider 295 [place], [place] [address] Lenore Alcala MD Assigned Heart and 12/18/21 01/21/22 [address] [facility] Vascular Provider [address] [place] [address] documented as of this encounter
--- OUTSIDE RECORDS SUMMARY | 2022-06-15 12:40 | XMS_ITS | Encounter Summary ---
:1945 Author Organization [place] Address [address] [facility] [place] [address] Care Team Providers Name Role Phone Chastity Montero MD Unavailable [phone] Johnnie Alcocer MD Unavailable Danni Marcus RN Unavailable Unavailable Mtm, Ea Complex Unavailable Unavailable Svetlana Osman [facility] Unavailable [phone] Haylie Cheung [facility] Unavailable [phone] Jaiden Holcomb MD Unavailable [phone] Patience Toussaint NP Unavailable Brook Sánchez MD Unavailable Osmar Kidd MD Unavailable Erlinda Barber MD Unavailable Yane Barraza MD Primary Care Provider Lenore Alcala MD Unavailable Haylie Cheung [facility] Unavailable [phone] Encounter Details Date Type Department Care Team Description 01/11/2022 Anticoagulation [facility] Ruben German history of pulmonary embolism (Primary Dx); Therapy Visit Anticoagulation Clin seth Littlejohn, technician terminal and repeater current use of ant icoagulant therapy; [address], RN Atrial fibrillation, unspeci fied type (H) [place] [address] Social History Tobacco Use Types [...] documented as of this encounter Progress Notes Adwoa German RN - 01/11/2022 5:32 PM CDT ANTICOAGULATION MANAGEMENT Charlette Velma Brush 77 year old female is on warfarin with supratherapeutic INR result. (Goal INR 2.0-3.0) Recent labs: (last 7 days) 01/11/22 1600 INR 3.3* ASSESSMENT ??? Source(s): Chart Review and Patient/Caregiver Call ??? Warfarin doses taken: Warfarin taken as instructed ??? Diet: Decreased greens/vitamin K in diet; plans to resume previous intake ??? New illness, injury, or hospitalization: No ??? Medication/supplement changes: None noted ??? Signs or symptoms of bleeding or clotting: No ??? Previous INR: Therapeutic last 2(+) visits ??? Additional findings: Patient is interested in home monitor, documentation sent to [facility] Admin. PLAN Recommended plan for temporary change(s) affecting INR Dosing Instructions: partial hold then continue your current warfarin dose with next INR in 2 weeks Summary As of 01/11/2022 Full warfarin instructions: 01/11: 5 mg; Otherwise 10 mg every day Next INR check: 01/25/2022 Telephone call with Charlette who verbalizes understanding and agrees to plan Lab visit scheduled Education provided: Please call back if any changes to your diet, medications or how you've been taking warfarin and Contact [phone] with any changes, questions or concerns. 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] [facility]DC current use of 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 [Z79.01] Atrial fibrillation unspecified type (H) [I48.91] Comments: Anticoagulation Care Providers Provider Role Specialty Phone number Galdino Valdez MD Referring Family Medicine [phone] Jaiden Holcomb MD Referring Internal Medicine [phone] Lucero Stevenson MD Responsible Internal Medicine [phone] documented in this encounter Plan of Treatment Upcoming Encounters Date Type Specialty Care Team Description 11/15/2022 Virtual Visit Haylie [place], [facility] 14[address] [facility] [place] [address] (Wo rk) 11/15/2022 Virtual Visit IM/Yane Mathias MD [address] [facility] [place] [id number] (Wo rk) 03/03/2023 Virtual Visit Neurology Erlinda Barber MD 420 [facility] 295 [place], [place] [phone] (Wo rk) documented as of this encounter Visit Diagnoses Diagnosis 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 embolism - Primary FDC current use of anticoagulant t herapy Atrial fibrillation, unspecified type (H ) documented in this encounter Additional Health Concerns Assessment Noted Time PHQ-9 Depression Total Score: 4 04/12/2019 7:03 AM CDT documented as of this encounter Care Teams Police Officer Crime Prevention Relationship Specialty Start Date End Date Yane Barraza MD PCP - General Internal Medicine 12/08/[address] [place] [address] [place], [place] [phone] Chastity Montero MD Dermatology 09/23/14 MD Martha 420 [facility] 98 [place], [place] [address] Johnnie Alcocer MD Surgeon General Surgery 03/23/17 [address] [facility] 300 [place], [place] [phone] Danni Marcus, CHANDLER Personal Advocate & 01/09/1901/17 Liaison (PAL) Fernando, Ea Complex 04/23/19 Svetlana Osman Pharmacist Pharmacotherapy 04/23/19 Era, [facility] [address] [place] [address] Haylie Cheung, Pharmacist Pharmacist 09/11/19 [facility] [address] [place] [address] Jaiden Holcomb Assigned PCP 05/24/20 MD Jayesh 909 [place], [place] [address] Patience Toussaint, VIANEY Assigned Surgical 01/29/21 02/11/22 2945 [facility] Provider [address] [place] [address] Brook Sánchez MD Assigned Infectious 07/04/[address] [place] [address] Osmar Kidd MD Assigned Sleep Provider 09/26/21 [address] [place], [place] [address] Erlinda Barber MD Assigned Neuroscience 10/24/21 420 [facility] Provider 295 [place], [place] [address] Lenore Alcala MD Assigned Heart and 12/18/21 01/21/22 [address] Vascular Provider [address] [place], [place] [address] Haylie Cheung, Assigned MTM Pharmacist 01/08/22 04/01/22 [facility] [address] [place] [place] [place] [phone] documented as of this encounter
--- OUTSIDE RECORDS SUMMARY | 2022-06-15 12:40 | XMS_ITS | Encounter Summary ---
:1945 Author Organization [place] Address [address] [place] [address] Care Team Providers Name Role Phone Chastity Montero MD Unavailable [phone] Johnnie Alcocer MD Unavailable Danni Marcus RN Unavailable Unavailable Mtm, Ea Complex Unavailable Unavailable Svetlana Osman [facility] Unavailable [phone] Haylie Cheung [facility] Unavailable [phone] Jaiden Holcomb MD Unavailable Patience Toussaint NP Unavailable Brook Sánchez MD Unavailable Osmar Kidd MD Unavailable Erlinda Barber MD Unavailable Yane Barraza MD Primary Care Provider Lenore Alcala MD Unavailable Haylie Cheung [facility] Unavailable [phone] Gaye Patrick RN Unavailable Unavailable Kenya Abernathy APRN SPOT BILLING CLERK Unavailable [phone] Hayley German OD Unavailable [phone] Haylie Cheung [facility] Unavailable [phone] Reason for Visit Reason Onset Date Comments Anticoagulation 01/11/2022 Home Monitor Request Encounter Details Date Type Department Care Team Description 01/11/2022 Telephone [facility] Yane Barraza Simi kyle (Home Anticoagulation Clin ic Monitor Request) [address] [place], [place] [address] [place], [place] [id number] Social History Tobacco Use Types Packs/Day Years [...] or relatives? How often do you attend nondenominational or More than 4 times per year 05/03/2021 latter day services? Do you belong to any clubs or No 05/03/2021 organizations such as nondenominational groups, unions, fraternal or athletic groups, or [...] this encounter Miscellaneous Notes Telephone Encounter - Juanita Burns - 02/10/2022 10:23 AM CDT Pending activation Telephone Encounter - Yane Barraza MD - 01/25/2022 6:49 PM CDT Order was signed. Thanks for setting this up. Yane Barraza MD Telephone Encounter - Juanita Burns - 01/25/2022 11:05 AM CDT Electronic order sent to provider for signature Telephone Encounter - Adwoa German RN - 01/11/2022 5:43 PM CDT Anticoagulation Management Discussed INR home monitoring program with Charlette Brush reviewing: ?? Elibigility requirements: >= 3 months of anticoagulation therapy, indication for chronic anticoagulation and order from provider ?? Required testing frequency (q1-2 weeks) ?? Home meters, testing supplies, meter training, and reporting of INR results done through an outside company. Patient would be contacted by home monitoring company to review insurance coverage with home monitoring company prior to enrolling. ?? [facility] would continue to receive and manage INR results. ?? Home monitoring application may take several weeks and must continue to follow up with recommended INR monitoring in clinic until receives monitor and training completed. Home monitoring terms reviewed with patient ??? Patient agrees to frequency of testing as directed by referring provider ( weekly or biweekly) Yes ??? Testing to be performed during business hours of [facility] Yes ??? Patient agrees they have the skill (or a designated caregiver) necessary to perform the self test Yes ??? Patient agrees to report all INR results to INR home monitoring company Yes ??? Patient agrees to have additional INR test in clinic if a home result is critical Yes ??? Patient agrees to schedule an INR test at a [facility] clinic yearly for technique observation and quality check of INR results with their home meter Yes ??? Patient agrees to use a [facility] approved service provider and device for home monitoring [facility] Referring provider: Yane Barraza MD Referring providers Clinic Fax number ? Charlette Brush is interested home INR monitoring and requests order be submitted. documented in this encounter Plan of Treatment Upcoming Encounters Date Type Specialty Care Team Description 11/15/2022 Virtual Visit Pharm D Haylie Cheung, [facility] [address] [place], [place] [phone] (Wo rk) 11/15/2022 Virtual Visit IM/Peds Yane Barraza MD [address] [facility] [address] [place] [phone] (Wo rk) 03/03/2023 Virtual Visit Neurology Erlinda Barber MD 420 [facility] 295 [place] [address] (Wo rk) documented as of this encounter Visit Diagnoses Not on filedocumented in this encounter Additional Health Concerns Assessment Noted Time PHQ-9 Depression Total Score: 4 04/12/2019 7:03 AM CDT documented as of this encounter Care Teams Digital Operations Analyst Relationship Specialty Start Date End Date Yane Barraza MD PCP - General Internal Medicine 12/08/[address] [place] [address] [place] [address] Chastity Montero MD Dermatology 09/23/14 MD Martha 420 [facility] 98 [place] [address] Johnnie Alcocer MD Surgeon General Surgery 03/23/17 [address] [facility] 300 [place], [place] [address] Danni Marcus, CHANDLER Personal Advocate & 01/09/1901/17 Liaison (PAL) Fernando, Ea Complex 04/23/19 Svetlana Osman Pharmacist Pharmacotherapy 04/23/19 Era, [facility] [address] [place] [address] Haylie Cheung, Pharmacist Pharmacist 09/11/19 [facility] [address] [place] [phone] Jaiden Holcomb Assigned PCP 05/24/20 MD Jayesh 909 [place], [place] [address] Patience Toussaint NP Assigned Surgical 01/29/21 02/11/22 2945 [facility] Provider [address] [place], [place] [phone] Brook Sánchez MD Assigned Infectious 07/04/[address] [place] [address] SE Disease Provider [place], [place] [address] Osmar Kidd MD Assigned Sleep Provider 09/26/21 [address] [place], [place] [address] Erlinda Barber MD Assigned Neuroscience 10/24/21 420 [facility] Provider 295 [place], [place] [address] Lenore Alcala MD Assigned Heart and 12/18/21 01/21/22 [address] Vascular Provider [address] [place] [address] Haylie Cheung, Assigned MTM Pharmacist 01/08/22 04/01/22 [facility] 1440 [facility] [place] [phone] Gaye Patrick, CHANDLER Personal Advocate & 01/18/22 Liaison (PAL) Kenya Abernathy APRN Assigned Heart and 01/22/22 SPOT BILLING CLERK Vascular Provider [address] [place] [address] Hayley German Assigned Surgical 02/12/22 Farrah, OD Provider 3305 [facility] [place] [phone] Haylie Cheung, Assigned MTM Pharmacist 04/13/22 [facility] [address] [place] [address] documented as of this encounter
--- OUTSIDE RECORDS SUMMARY | 2022-06-15 12:40 | XMS_ITS | Encounter Summary ---
:1945 Author Organization [place] Address [address] [place] [address] Care Team Providers Name Role Phone Chastity Montero MD Unavailable [phone] Johnnie Alcocer MD Unavailable Danni Marcus RN Unavailable Unavailable Mtm, Ea Complex Unavailable Unavailable Svetlana Osman [facility] Unavailable [phone] [facility] Unavailable [phone] Jaiden Holcomb MD Unavailable [phone] Patience Toussaint NP Unavailable Brook Sánchez MD Unavailable Osmar Kidd MD Unavailable Erlinda Barber MD Unavailable Yane Barraza MD Primary Care Provider Lenore Alcala MD Unavailable Reason for Visit Reason Comments Medication Refill Encounter Details Date Type Department Care Team Description 12/24/2021 Refill M [facility] Wilbur Holcomb Medication Refill Yarelis Mcconnell MD [address] [address] [address] [place] [address] [phone] Social History Tobacco Use Types Packs/Day Years [...] or relatives? How often do you attend religious or More than 4 times per year 05/03/2021 oriental orthodox services? Do you belong to any clubs or No 05/03/2021 organizations such as religious groups, unions, fraternal or athletic groups, or [...] place to sleep or slept in a fci (including now)? Education Answer Date Recorded What [...] this encounter Miscellaneous Notes Telephone Encounter - Svetlana Osman Sanjuanita - 12/27/2021 7:02 AM CDT Per last hospital discharge from [facility] admission 11/30/21 - Switch fom atenolol 25mg BID tometoprolol tartrate 25 mg bid Atenolol was discontinued Telephone Encounter - Ray Rosa RN - 12/24/2021 2:44 PM CDT Routing refill request to provider for review/approval because: Drug not active on patient's medication list Last prescribed by Dr. Holcomb. Please advise. Patient is scheduled for OV w/ S.Bobby Craig RN documented in this encounter Plan of Treatment Upcoming Encounters Date Type Specialty Care Team Description 11/15/2022 Virtual Visit Pharm D Haylie Cheung, [facility] [address] [facility] [address] [place] [phone] (Wo rk) 11/15/2022 Virtual Visit IM/Peds Yane Barraza MD [address] [facility] [address] [place] [phone] (Wo rk) 03/03/2023 Virtual Visit Neurology Erlinda Barber MD 420 [facility] 295 [place] [address] (Wo rk) documented as of this encounter Visit Diagnoses Diagnosis Essential hypertension, benign documented in this encounter Additional Health Concerns Assessment Noted Time PHQ-9 Depression Total Score: 4 04/12/2019 7:03 AM CDT documented as of this encounter Care Teams Pulpwood Contractor Relationship Specialty Start Date End Date Yane Barraza MD PCP - General Internal Medicine 12/08/21 [address] [facility] [address] [place], [place] [phone] Chastity Montero MD Dermatology 09/23/14 MD Martha 420 [facility] 98 [place] [address] Johnnie Alcocer MD Surgeon General Surgery 03/23/[address] [place], [place] [address] Danni Marcus, CHANDLER Personal Advocate & 01/09/1901/17 Liaison (PAL) Kyle King Complex 04/23/19 Svetlana Osman Pharmacist Pharmacotherapy 04/23/[address] [facility] [address] [place] [address] Haylie Cheung, Pharmacist Pharmacist 09/11/[address] [facility] [address] [place] [address] Jaiden Holcomb Assigned PCP 05/24/20 MD Jayesh 909 [place] [address] Patience Toussaint NP Assigned Surgical 01/29/21 02/11/22 2945 [facility] Provider [address] [place], [place] [phone] Brook Sánchez MD Assigned Infectious 07/04/[address] [place] [address] SE Disease Provider [place], [place] [address] Osmar Kidd MD Assigned Sleep Provider 09/26/21 [address] [place] [address] Erlinda Barber MD Assigned Neuroscience 10/24/[address] [facility] [address] [facility] Provider [address] [place], [place] [address] Lenore Alcala MD Assigned Heart and 12/18/21 01/21/22 [address] Vascular Provider [address] [place] [address] documented as of this encounter
--- OUTSIDE RECORDS SUMMARY | 2022-06-15 12:40 | XMS_ITS | Encounter Summary ---
:1945 Author Organization Guy Address [address] [place] [address] Care Team Providers Name Role Phone Chastity Montero MD Unavailable [phone] Johnnie Alcocer MD Unavailable Danni Marcus RN Unavailable Unavailable Mtm, Ea Complex Unavailable Unavailable Svetlana Osman [facility] Unavailable [phone] Haylie Cheung [facility] Unavailable [phone] Jaiden Holcomb MD Unavailable Patience Toussaint NP Unavailable Brook Sánchez MD Unavailable Osmar Kidd MD Unavailable Erlinda Barber MD Unavailable Yane Barraza MD Primary Care Provider Lenore Alcala MD Unavailable Haylie Cheung [facility] Unavailable [phone] Reason for Visit Reason Comments RECHECK Encounter Details Date Type Department Care Team Description 01/11/2022 Office Visit [facility] Yane Barraza, Lymphed alfonso of both lower extremities (Primary Dx); Clinic [facility]EL Pressure ulcer of ischium, left, stage I V (H); [address] [facility] Mckenzie ic predisposition to disease; [place] Acute diastolic heart failure (H); [address] [place] [address] 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 How often do you attend baptist or More than 4 times per year 05/03/2021 anabaptism services? Do you belong to any clubs or No 05/03/2021 organizations such as baptist groups, unions, fraternal or athletic groups, or [...] Sign Reading Time Taken Comments Blood Pressure 138/82 01/11/2022 1:50 PM CDT Pulse 97 01/11/2022 1:50 PM CDT Temperature 36.6 ??C (97.9 ??F) 01/11/2022 1:50 PM CDT Respiratory Rate - - Oxygen Saturation 95% 01/11/2022 1:50 PM CDT Inhaled Oxygen Concentration - - Weight 164.5 kg (362 lb 9.6 oz) 01/11/2022 1:50 PM CDT Height 170.2 cm (5' 7) 01/11/2022 1:50 PM CDT Body Mass Index 56.79 01/11/2022 1:50 PM CDT documented in this encounter Patient Instructions Patient InstructionsHaylie Cheung RPH - 01/11/2022 2:30 PM CDT Recommendations from today's Complex Care Team visit: Thank you for participating in our complex care team visit today! Vaccines: 2nd Covid booster today 2. Talk to your line crew supervisor about the new shingles shot, shingrix. Labs: INR today as planned add a lab for the history of celiac gene (Tissue transglutaminase sarah IgA and IgG) Diet: If you prefer to continue to eat gluten free you may. Let us know if constipation worsens. Cholesterol: You can discuss if the atorvastatin is needed to continue when you meet with the health information managers. IF they do want you to stay on this and at this dose, then ask for a new Rx of the 20mg tablet to avoidingcutting tablets. Atrial fibrillation: Change metoprolol IR 25 mg tablet to extended release 25 mg tablet, take 1 tablet by mouth ONCE daily. We will send a message to the INR team to see if you can get a home INR machine. Supplements: Decrease fish oil to just 1 capsule a day to avoid risk of bleeding as you are on warfarin Next care team visit: 4 months, the computer security specialist will contact you to set up the next visit. Please feel free to contact us with any questions or concerns you have. You may reach the complex care team directly at [phone]. My Care Team Members Dr. Barraza Nurse patient adovocate liaison (PAL): Gaye Cheung, PharmD Medication Therapy Management Practitioner It was great to speak with you today. You may receive a survey via email or text message in the nextfew days. We value your experience and would be very thankful for your time with providing feedback on our clinic survey. documented in this encounter Progress Notes Yane Barraza MD - 01/11/2022 2:30 PM CDT Assessment & Plan Problem List Items Addressed This Visit Nervous and Auditory Seizure (H) Stable without seizure. On medications. Follow-up with neurology as scheduled. Circulatory Acute diastolic heart failure (H) Ongoing edema. Continue diuretic. Consider stopping statin but patient wishes to discuss further with cardiology as upcoming scheduled appointment. Musculoskeletal and Integumentary Lymphedema of both lower extremities - Primary Discussed wraps and continued cares. Wound limits ability to do pool to help with edema or to the waist compression. Continue to monitor Pressure ulcer of ischium, left, stage IV (H) Ongoing wound cares with [place], getting regular communication from them. Home care to help with dressings. Patient's main goal is to have this healed. 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 INR today. Discussed potentially home INR especially as weather gets bad. Mobility is difficult for her. [facility] will reach out to INR nurse about that. Celiac high risk by genetic testing. Discussed TTG has not been high so no celiac diagnosis. Could eat gluten. Patient worried that willimpair wound healing. Should have yearly TTG and that is ordered I spent a total of 50 minutes on the day of the visit. Time spent doing chart review, history and exam, documentation and further activities per the note BMI: Estimated body mass index is 56.79 kg/m?? as calculated from the following: Height as of this encounter: 1.702 m (5' 7). Weight as of this encounter: 164.5 kg (362 lb 9.6 oz). See Patient Instructions Return in about 4 months (around 05/13/2022) for Physical Exam co-visit with clinical pharmacist. Yane Barraza MD [facility] The 10-year ASCVD risk score ([place] DEX Jr., et al., 2013) is: 26.1% Values used to calculate the score: Age: 77 years Sex: Female Is Non- : No Diabetic: No Tobacco smoker: No Systolic Blood Pressure: 138 mmHg Is BP treated: Yes HDL Cholesterol: 54 mg/dL Total Cholesterol: 142 mg/dL Chino Ovalles is a 77 year old accompanied by her aide., presenting for the following health issues: RECHECK History of Present Illness Hypertension: She presents for follow up of hypertension. She does check blood pressure regularly outside of the clinic. Outside blood pressures have been over 140/90. She follows a low salt diet. Vascular Disease: She presents for follow up of vascular disease. She never takes nitroglycerin. Sheis not taking daily aspirin. Has wound care in her house regularly and goes to clinic in [place] weekly. Has had wound since 2018. Sees ID - Dr. Sánchez. Is on supplements for this as well - zinc, D, C A fib - on warfarin, sees cards Seizures - no issues, has neurology appointment. Has celiac gene but no symptoms. Tries to eat gluten free because of this and now constipated. Has eaten gluten free for about 18 months. Feels like constipation is managed ok. Had sciatic injury from procedure for wound so wears a brace. Uses a walker. Has a handicapped parking sticker. Does not have home care but has an aide. Review of Systems Objective BP 138/82 (BP Location: Right arm, Patient Position: Sitting, Cuff Size: Adult Large) Pulse 97 Temp 97.9 ??F (36.6 ??C) (Tympanic) Ht 1.702 m (5' 7) Wt (!) 164.5 kg (362 lb 9.6 oz) LMP (LMP Unknown) SpO2 95% BMI 56.79 kg/m?? Body mass index is 56.79 kg/m??. Physical Exam GENERAL: alert, no distress and over weight MS: bilateral LE wraps in place. Edema to waist SKIN: ecchymosis right middle finger tip . .. documented in this encounter Miscellaneous Notes Assessment & Plan Note - Yane Barraza MD - 01/13/2022 2:56 PM CDTAssociated Problem(s): Celiac high risk by genetic testing. Discussed TTG has not been high so no celiac diagnosis. Could eat gluten. Patient worried that will impair wound healing. Should have yearly TTG and that is ordered Assessment & Plan Note - Yane Barraza MD - 01/13/2022 2:54 PM CDTAssociated Problem(s): Acute diastolic heart failure (H) Ongoing edema. Continue diuretic. Consider stopping statin but patient wishes to discuss further with cardiology as upcoming scheduled appointment. Assessment & Plan Note - Yane Barraza MD - 01/13/2022 2:54 PM CDTAssociated Problem(s): Seizure (H) Stable without seizure. On medications. Follow-up with neurology as scheduled. 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 INR today. Discussed potentially home INR especially as weather gets bad. Mobility is difficult for her. [facility] will reach out to INR nurse about that. Assessment & Plan Note - Yane Barraza MD - 01/13/2022 2:51 PM CDTAssociated Problem(s): Pressure ulcer of ischium, left, stage IV (H) Ongoing wound cares with [place], getting regular communication from them. Home care to help withdressings. Patient's main goal is to have this healed. Assessment & Plan Note - Yane Barraza MD - 01/13/2022 2:50 PM CDTAssociated Problem(s): Lymphedema of both lower extremities Discussed wraps and continued cares. Wound limits ability to do pool to help with edema or to the waist compression. Continue to monitor documented in this encounter Plan of Treatment Upcoming Encounters Date Type Specialty Care Team Description 11/[facility]22 [facility] [address] [place] [address] (Wo rk) 11/15/2022 Virtual Visit IM/Peds Yane Barraza MD [address] [facility] [place] [address] (Wo rk) 03/03/2023 Virtual Visit Neurology Erlinda Barber MD [address] [facility] [address] [place] [address] (Wo rk) documented as of this encounter Results Tissue transglutaminase sarah IgA and IgG (01/20/2022 2:27 PM CDT) [facility] gist Method Time Signature Tissue 0.6 <7.0 U/mL [...] Transglutaminase 1.9 <7.0 U/mL 01/23/2022 1:36 PM [facility] Antibody IgG CDT CORE/PROT/ENDO Comment: Negative Specimen Anatomical Collection Method / Collection Time Recei yudy Time (Source) Location / Volume Laterality Blood STRUCTURE OF RIGHT Venipuncture / 01/20/2022 2:27 07/0 01/2022 2:27 UPPER LIMB / Unknown PM CDT PM CDT Unknown Yane Barraza MD LAB - BLOOD ORDERABLES Performing Organization Address City/State/ZIP Code Phon e Number [facility] CORE/PROT/ENDO [facility] [place] [address] Core/Prot/Endo [address] [facility] [address], Room 3-580 documented in this encounter Visit Diagnoses Diagnosis Lymphedema of both lower extremities - P rimary Pressure ulcer of ischium, left, stage I V (H) Genetic predisposition to disease Genetic susceptibility to other disease Acute diastolic heart failure (H) Acute diastolic heart failure 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 embolism Seizure (H) Other convulsions documented in this encounter Additional Health Concerns Assessment Noted Time PHQ-9 Depression Total Score: 4 04/12/2019 7:03 AM CDT documented as of this encounter Care Teams Stripping Shovel Oiler Relationship Specialty Start Date End Date Yane Barraza MD PCP - General Internal Medicine 12/08/21 [address] [facility] [address] [place] [id number] Chastity Montero MD Dermatology 09/23/14 MD Martha [address] [place] [address] [address] [place], [place] [address] Johnnie Alcocer MD Surgeon General Surgery 03/23/17 [address] [facility] [address] [place], [place] [address] Danni Marcus, CHANDLER Personal Advocate & 01/09/1901/17 Liaison (PAL) Fernando, Ea Complex 04/23/19 Svetlana Osman Pharmacist Pharmacotherapy 04/23/19 Era, [facility] [address] [place] [address] Haylie Cheung, Pharmacist Pharmacist 09/11/19 [facility] [address] [facility] [address] [place], [place] [id number] Jaiden Holcomb Assigned PCP 05/24/20 MD Jayesh [address] [place] [id number] Patience Toussaint, VIANEY Assigned Surgical 01/29/21 02/11/22 [address] [facility] Provider [address] [place], [place] [id number] Brook Sánchez MD Assigned Infectious 07/04/[address] [place] [address] SE Disease Provider [place], [place] [address] Osmar Kidd MD Assigned Sleep Provider 09/26/21 [address] [place] [id number] Erlinda Barber MD Assigned Neuroscience 10/24/21 [address] [facility] [address] [place] [address] Lenore Alcala MD Assigned Heart and 12/18/21 01/21/22 [address] Vascular Provider [address] [place] [address] Haylie Cheung, Assigned MTM Pharmacist 01/08/22 04/01/22 [facility] [address] [facility] [place] [id number] documented as of this encounter
--- OUTSIDE RECORDS SUMMARY | 2022-06-15 12:41 | XMS_ITS | Encounter Summary ---
:1945 Author Organization [place] Address [address] [place] [address] Care Team Providers Name Role Phone Chastity Montero MD Unavailable [phone] Johnnie Alcocer MD Unavailable Danni Marcus RN Unavailable Unavailable Mtm, Ea Complex Unavailable Unavailable Svetlana Osman [facility] Unavailable [phone] Haylie Cheung [facility] Unavailable [phone] Jaiden Holcomb MD Unavailable [phone] Patience Toussaint NP Unavailable Brook Sánchez MD Unavailable Osmar Kidd MD Unavailable Erlinda Barber MD Unavailable Yane Barraza MD Primary Care Provider Reason for Referral Consultation (Routine: Next available opening) - Pending Review Specialty Diagnoses / Procedures Referred By Contact Refer red To Contact Cardiovascular Disease Diagnoses Atrial fibrillation, unspecified type (H) Acute diastolic heart failure (H) Lenore Alcala MD [address] [facility] [address] [place] [address] Referral ID Status Reason Start Date Expiration Date Visits V isits Requested Authorized [id number] Pending 12/17/2021 12/17/2022 1 1 Review Reason for Visit Reason Comments New Patient New Heart Failure Consult CV Cardio consult (Routine: Next available opening) - Closed Specialty Diagnoses / Procedures Referred By Contact Refer red To Contact Cardiovascular Disease Diagnoses Atrial fibrillation, unspecified type (H) Acute diastolic heart failure (H) Jaiden Holcomb [facility] MD [facility] [address] [address] [place] [address] Phone: Referral ID Status Reason Start Date Expiration Date Visits Requ ested Visits Authorized [id number] Closed 12/06/2021 12/06/2022 1 1 Encounter Details Date Type Department Care Team Description 12/17/2021 Office Visit [facility] Lenore Alcala MD Atrial fibrillation, unspecified type (H ); [facility] Clinic [address] Acute domingo tolic heart failure (H) [facility] [address] [address] [address] [place], [place] (Work) [address] Social History Tobacco Use Types Packs/Day [...] or relatives? How often do you attend restoration or More than 4 times per year 05/03/2021 hoahaoism services? Do you belong to any clubs or No 05/03/2021 organizations such as restoration groups, unions, fraternal or athletic groups, or [...] Sign Reading Time Taken Comments Blood Pressure 118/88 12/17/2021 2:52 PM CDT Pulse 80 12/17/2021 2:52 PM CDT Temperature - - Respiratory Rate - - Oxygen Saturation 99% 12/17/2021 2:52 PM CDT Inhaled Oxygen Concentration - - Weight 163.7 kg (361 lb) 12/17/2021 2:52 PM CDT Height 170.2 cm (5' 7) 12/17/2021 2:52 PM CDT Body Mass Index 56.54 12/17/2021 2:52 PM CDT documented in this encounter Progress Notes Lenore Alcala MD - 12/17/2021 3:00 PM CDT CARDIOLOGY CLINIC CONSULTATION REASON FOR CONSULT: Heart failure with preserved EF and AHarpal heaton PRIMARY CARE PHYSICIAN: Yane Bararza Today's clinic visit entailed: Review of the result(s) of each unique test - Echo ECG labs outside records 45 minutes spent on the date of the encounter doing chart review, history and exam, documentation and further activities per the note Provider Link to [facility] Help Grid The level of medical decision making during this visit was of high complexity. HISTORY OF PRESENT ILLNESS: This is a very pleasant 76-year-old female who has a history of chronic atrial fibrillation since 2019. 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 Denies any other pertinent cardiovascular history. She is diabetic hypertensive and morbidly obese with a BMI of 56. She says she used to be on Lasix in the past but a couple of years ago was taken off that. Patient is seen as a new heart failure consultation at [facility] for newly diagnosed heart failure with preserved ejection fraction. She was at [facility] from 11/30 to 12/03/2021. She had acute decompensated heart failure with preserved EF for which she required IV diuresis. She was initiated on 20 mg of Lasix at discharge. She was noted to be in A. fib during the hospitalization. Denies any angina syncope or presyncope. She walks with a walker. She is compliant with her medications. As an outpatient after discharge her weight is started to climb up and has gone up by about 10 pounds over the last 10 days. She is NYHA class III however this is difficult to discern given her musc uloskeletal issues. In addition to that the patient has a history of severe lymphedema. She has massive swelling all theway up to her thighs and buttocks very disproportionate to her intravascular volume status on exam PAST MEDICAL HISTORY: Past Medical History: Diagnosis Date ??? Acute [...] Patient has appointment with Retina Specialist at [facility] on 01/11. 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 [...] & Plan: Appointment with Retina Specialist at [facility] on 01/11/19. ??? Morbid obesity (H) ??? [...] Referral placed for Dr. Kajal Huggins at [facility]ound clinic in [place] per patient request. She has contact i [...] lower limb ??? Wound, open coccyx L MEDICATIONS: Current Outpatient Medications Medication ??? acetaminophen (TYLENOL) 500 MG tablet ??? atorvastatin (LIPITOR) 40 MG tablet ??? bisacodyl (DULCOLAX) 5 MG EC tablet ??? cetirizine (ZYRTEC) 10 MG tablet ??? Cholecalciferol (VITAMIN D) 125 MCG (5000 UT) capsule ??? docusate sodium (COLACE) 100 MG capsule ??? ferrous sulfate (FEROSUL) 325 (65 Fe) MG tablet ??? furosemide (LASIX) 20 MG tablet ??? hydrocortisone 2.5 % ointment ??? levETIRAcetam (KEPPRA) 500 MG tablet ??? losartan (COZAAR) 50 MG tablet ??? magnesium oxide 400 MG CAPS ??? metoprolol tartrate (LOPRESSOR) 25 MG tablet ??? Multiple Minerals-Vitamins (CITRACAL MAXIMUM PLUS) TABS ??? Multiple Vitamins-Minerals (PRESERVISION/LUTEIN) CAPS ??? nystatin (MYCOSTATIN) 654239 UNIT/GM external cream ??? nystatin (NYSTOP) 698952 UNIT/GM external powder ??? [place]-3 Fatty Acids (FISH OIL PO) ??? Probiotic Product (PROBIOTIC PO) ??? triamcinolone (KENALOG) 0.1 % external ointment ??? vitamin C (ASCORBIC ACID) 1000 MG TABS ??? warfarin ANTICOAGULANT (COUMADIN) 10 MG tablet ??? warfarin ANTICOAGULANT (COUMADIN) 5 MG tablet ??? zinc gluconate 50 MG tablet No current facility-administered medications for this visit. ALLERGIES: Allergies Allergen Reactions ??? Cephalexin Hives Keflex - hives ??? Ciprofloxacin Developed rash while on Cipro and Clindamycin ??? Clindamycin Developed rash while taking Clindamycin and Cipro ??? Lanolin Other (See Comments) skin irritation ??? Lisinopril Cough ??? Neomycin Other (See Comments) skin irritation ??? Penicillins Hives Has tolerated amp/sulbactam ??? Zostavax [Zoster Vaccine Live] ??? Bactroban [Mupirocin Calcium] Rash ??? Mupirocin Rash and Unknown SOCIAL HISTORY: I have reviewed this patient's social history and updated it with pertinent information if needed. Charlette Velma Brush reports that she has never smoked. She has never used smokeless tobacco. She reports that she does not drink alcohol and does not use drugs. FAMILY HISTORY: I have reviewed this patient's family history and updated it with pertinent information if needed. Family History Problem Relation Age of Onset ??? Hypertension Mother ??? Thyroid Disease Mother ??? Prostate Cancer Father ??? Skin Cancer Father skin cancer unknown ??? Cancer Father ??? Glaucoma Brother ??? Macular Degeneration Brother ??? C.A.D. Paternal Grandmother ??? Hypertension Sister ??? Cerebrovascular Disease Maternal Grandmother age 62 ??? Breast Cancer Paternal Aunt x3 ??? Gastrointestinal Disease Brother irritable bowel ??? Gastrointestinal Disease Sister ciliac disease ??? Colon Cancer No family hx of ??? Transient ischemic attack Mother REVIEW OF SYSTEMS: Skin: Eyes: ENT: Respiratory: Positive for sleep apnea;CPAP Cardiovascular: edema;Positive for Gastroenterology: Genitourinary: Musculoskeletal: Neurologic: Psychiatric: Heme/Lymph/Imm: Endocrine: PHYSICAL EXAM: BP: 118/88 Pulse: 80 SpO2: 99 % Vital Signs with Ranges Pulse: [80] 80 BP: (118)/(88) 118/88 SpO2: [99 %] 99 % 361 lbs 0 oz Constitutional: awake, alert, no distress Respiratory: Clear to auscultation Cardiovascular: JVP surprisingly appears not to elevated probably around 8 to 10 cm. Exam is difficult given her neck size. There is severe bilateral lower extremity swelling all the way up to the buttocks. A lot of it is nonpitting. Significant amount of lymphedema. Irregular heart sounds soft systolic murmur GI: Morbidly obese Neuropsychiatric: appropriate affact DATA: Labs: Pertinent cardiac labs reviewed Echocardiogram: Outside echo showing normal biventricular size and function mild LVH mild pulmonary hypertension no significant valve disease moderate to severe biatrial enlargement EKG: Chronic A. fib ASSESSMENT: Chronic atrial fibrillation on long-term anticoagulation Hypertension diabetes morbid obesity Heart failure with preserved EF and mild pulmonary hypertension Severe lymphedema RECOMMENDATIONS: 1. Patient is doing well after discharge from [facility]. This was her first admission for decompensated heart failure she says. She denies any symptoms related to her A. fib. Her weight is goingup after discharge being on 20 mg of Lasix. 2. A lot of her lower extremity swelling is noncardiac and lymphedema in nature. 3. In any case recommend increasing Lasix to 40 mg daily. Labs and JOI follow-up in 1 month. 4. Her last echocardiogram did show mild moderate pulmonary hypertension. Her physical exam is quitechallenging and she has massive edema in her legs. Recommend right heart catheterization depending on response to diuretic dosing. 5. If she continues to struggle, recommend CardioMEMS. Although her BMI is quite high, her chest circumference is reasonable and a lot of the swelling is in the lower extremities and buttocks from lymphedema. See me in 6 months. Weight loss, salt and fluid restriction. Remains at high risk for readmissions. SHAJI Mujica, [facility] Cardiology - [facility] Heart December 17, 2021 documented in this encounter Plan of Treatment Upcoming Encounters Date Type Specialty Care Team Description 11/15/2022 Virtual Visit Pharm D Haylie Cheung, [facility] [address] [place] [address] (Wo rk) 11/15/2022 Virtual Visit IM/Peds Yane Barraza MD [address] [facility] [place] [address] (Wo rk) 03/03/2023 Virtual Visit Neurology Erlinda Barber MD [address] [facility] [address] [place] [address] (Wo rk) Scheduled Referrals Name Type Priority Associated Diagnoses Order S chedule Follow-Up with Referral Routine: Next Atrial fibrillation, Expe cted: Cardiology JOI available opening unspecified ty pe (H) 01/16/2022 Acute diastolic (Approximate ), heart failure (H) Expires: 12/17/2022 documented as of this encounter Results (ABNORMAL) Basic metabolic panel (01/20/2022 2:27 PM CDT) [facility] Method Time Signature Sodium 140 133 - 144 01/20/2022 [facility] mmol/L 3:00 PM CDT Potassium 4.0 3.4 - 5.3 01/20/2022 [facility] mmol/L 3:00 PM CDT Chloride 106 94 - 109 01/20/2022 [facility]ORY mmol/L 3:00 PM CDT Carbon Dioxide 29 20 - 32 01/20/2022 [facility] (CO2) mmol/L 3:00 PM CDT Anion Gap 5 3 - 14 01/20/2022 [facility] mmol/L 3:00 PM CDT Urea Nitrogen 26 7 - 30 01/20/2022 [facility] mg/dL 3:00 PM CDT Creatinine 0.50 (L) 0.52 - 01/20/2022 [facility] 1.04 mg/dL 3:00 PM CDT Calcium 9.0 8.5 - 10.1 01/20/2022 [facility] mg/dL 3:00 PM CDT Glucose 92 70 - 99 01/20/2022 [facility] mg/dL 3:00 PM CDT GFR Estimate >90 >60 01/20/2022 [facility] mL/min/1.7 3:00 PM CDT 3m2 Comment: Effective July 06, 2021 eGF Rcr in adults is calculated using the 2020 CKD-EPI creatinine equation which includ es age and gender (Angelina et al., NEJM, DOI: 10.1056/NNZGne0860108) Specimen Anatomical Collection Method / Collection Time Recei yudy Time (Source) Location / Volume Laterality Blood STRUCTURE OF RIGHT Venipuncture / 01/20/2022 2:27 07/0 01/2022 2:27 UPPER LIMB / Unknown PM CDT PM CDT Unknown Lenore Alcala MD LAB - BLOOD ORDERABLES Performing Organization Address City/State/ZIP Code [place] [id number] Care Lab [address] Lab (1st floor, no room number) documented in this encounter Visit Diagnoses Diagnosis Atrial fibrillation, unspecified type (H ) Acute diastolic heart failure (H) Acute diastolic heart failure documented in this encounter Additional Health Concerns Assessment Noted Time PHQ-9 Depression Total Score: 4 04/12/2019 7:03 AM CDT documented as of this encounter Care Teams Board Mill Supervisor Relationship Specialty Start Date End Date Yane Barraza MD PCP - General Internal Medicine 12/08/21 [address] [facility] [address] Chastity Montero MD Dermatology 09/23/14 MD Martha [address] [facility] [address] [place], [place] [address] Johnnie Alcocer MD Surgeon General Surgery 03/23/[address] [place], [place] [address] Danni Marcus, CHANDLER Personal Advocate & 01/09/1901/17 Liaison (PAL) Mtm, Ea Complex 04/23/19 Svetlana Osman Pharmacist Pharmacotherapy 04/23/19 Era, [facility] [address] [place] [address] Haylie Cheung, Pharmacist Pharmacist 09/11/19 [facility] [address] [place] [address] Jaiden Holcomb Assigned PCP 05/24/20 MD Jayesh [address] [place] [id number] Patience Toussaint NP Assigned Surgical 01/29/21 02/11/22 [address] [facility] Provider [address] [place], [place] [id number] Brook Sánchez MD Assigned Infectious 07/04/[address] [place] [address] Disease Provider [place], [place] [address] Osmar Kidd MD Assigned Sleep Provider 09/26/21 [address] [place], [place] [address] Erlinda Barber MD Assigned Neuroscience 10/24/21 [address] [facility] Provider [address] [place], [place] [address] documented as of this encounter
--- OUTSIDE RECORDS SUMMARY | 2022-06-15 12:41 | XMS_ITS | Encounter Summary ---
:1945 Author Organization [place] Address [address] [place] [address] Care Team Providers Name Role Phone Chastity Montero MD Unavailable [phone] Johnnie Alcocer MD Unavailable Danni Marcus RN Unavailable Unavailable Mtm, Ea Complex Unavailable Unavailable Svetlana Osman [facility] Unavailable [phone] Haylie Cheung [facility] Unavailable [phone] Jaiden Holcomb MD Unavailable [phone] Kajal Huggins MD Unavailable Patience Toussaint NP Unavailable Brook Sánchez MD Unavailable Yane Barraza MD Primary Care Provider Osmar Kidd MD Unavailable Reason for Visit Reason Onset Date Comments Anticoagulation 10/18/2021 INR Result Encounter Details Date Type Department Care Team Description 10/18/2021 Telephone [facility] Yane Barraza MD Anticoagulation (INR Clinic [place] [address] [facility] Result) [address] [facility] [place] [address] [address] [place] [address] (Work) [phone] Social History Tobacco Use Types Packs/Day Years [...] Exposure Response Date Recorded In the last month, have you been in contact with No / Unsure 10/01/2021 11:48 AM CDT someone who was confirmed or suspected to have Coronavirus / COVID-19? documented as of this encounter Miscellaneous Notes Telephone Encounter - Sasha Rueda RN - 10/18/2021 12:36 PM CDT ANTICOAGULATION MANAGEMENT Charlette Carreon Trudi 76 year old female is on warfarin with therapeutic INR result. (Goal INR ) Recent labs: (last 7 days) 10/18/21 1232 INR 2.8* ASSESSMENT ??? Source(s): Chart Review and Home Care/Facility Nurse ??? Warfarin doses taken: Warfarin taken as instructed ??? Diet: No new diet changes identified ??? New illness, injury, or hospitalization: No ??? Medication/supplement changes: None noted ??? Signs or symptoms of bleeding or clotting: No ??? Previous INR: Supratherapeutic ??? Additional findings: None PLAN Recommended plan for no diet, medication or health factor changes affecting INR Dosing Instructions: continue your current warfarin dose with next INR in 2 weeks Summary As of 10/18/2021 Full warfarin instructions: 10 mg every day Next INR check: 11/01/2021 Detailed voice message left for Erinn home care/facility nurse with dosing instructions and follow up date. Orders given to Homecare nurse/facility to recheck Education provided: Please call back if any changes to your diet, medications or how you've been taking warfarin Plan made per [facility] anticoagulation protocol Sasha Rueda RN Anticoagulation Clinic 10/18/2021 Anticoagulation Episode Summary Current INR goal: 2.0-3.0 TTR: 66.4 % (1 y) Target end date: Indefinite Send INR reminders to: [facility] Indications 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] retirement current use of 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 [Z79.01] Paroxysmal atrial fibrillation (H) [I48.0] Comments: Anticoagulation Care Providers Provider Role Specialty Phone number Galdino Valdez MD Referring Family Medicine [phone] Jaiden Holcomb MD Referring Internal Medicine [phone] Lucero Stevenson MD Responsible Internal Medicine [phone] Telephone Encounter - Eliane Garza - 10/18/2021 12:20 PM CDT .Reason for Call: INR Who is calling? Home Care: [facility] Phone number: [phone] Fax number: n/a Name of caller: Erinn INR Value: 2.8 Are there any other concerns: Not stated... Can we leave a detailed message on this number? YES Phone number patient can be reached at: Home number on file [phone] (home) Call taken on 10/18/2021 at 12:23 PM by Eliane Garza documented in this encounter Plan of Treatment Upcoming Encounters Date Type Specialty Care Team Description 11/15/2022 Virtual Visit Pharm Haylie Gonzalez, [facility] [address] [facility] [place] [phone] (Wo rk) 11/15/2022 Virtual Visit IM/Peds Yane Barraza MD [address] [facility] [employer] [facility] [place] [address] (Wo rk) 03/03/2023 Virtual Visit Neurology Erlinda Barber MD [address] [facility] [address] [place] [address] (Wo rk) documented as of this encounter Procedures Procedure Name Priority Date/Time Associated Diagnosis Comme nts INR (EXTERNAL Routine 10/18/2021 12:32 PM Results for this RESULT) CDT procedure are i n the results section. documented in this encounter Results (ABNORMAL) INR (External Result) (10/18/2021 12:32 PM CDT) P athologist Signature INR (External) 2.8 (A) 0.9 - 1.1 EXTERNAL LAB Specimen (Source) Anatomical Collection Method Collection Time Re ceived Time Location / / Volume Laterality Blood 10/18/2021 12:32 PM CDT Resulting Agency Comment Home Care/[facility] Patient Reported LAB - HIM EXTERNAL RESULT Performing Organization Address City/State/ZIP Code Phon e Number EXTERNAL LAB EXTERNAL LAB External Lab documented in this encounter Visit Diagnoses Diagnosis 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 embolism - Primary retirement current use of anticoagulant t herapy Paroxysmal atrial fibrillation (H) Atrial fibrillation documented in this encounter Additional Health Concerns Assessment Noted Time PHQ-9 Depression Total Score: 4 04/12/2019 7:03 AM CDT documented as of this encounter Care Teams Screw Machine Repairer Relationship Specialty Start Date End Date Yane Barraza MD PCP - General Internal Medicine 10/04/21 12/07/21 [address] [place] [address] Chastity Montero MD Dermatology 09/23/14 MD Martha [address] [facility] [address] [place] [address] Johnnie Alcocer MD Surgeon General Surgery 03/23/[address] [place] [address] Danni Marcus, CHANDLER Personal Advocate & 01/09/1901/17 Liaison (PAL) [place], Ea Complex 04/23/19 Svetlana Osman Pharmacist Pharmacotherapy 04/23/19 Era, [facility] [address] [facility] [place] [address] Haylie Cheung, Pharmacist Pharmacist 09/11/19 [facility] [address] [facility] [place] [address] Jaiden Holcomb Assigned PCP 05/24/20 MD Jayesh [address] [place] [address] Kajal Huggins, Assigned Neuroscience 01/29/21 10/23/21 MD Provider [address] [place] [address] [address] [place] [address] Patience Toussaint NP Assigned Surgical 01/29/21 02/11/[address] [place] [address] Provider [address] [place] [address] Brook Sánchez MD Assigned Infectious 07/04/[address] [place] [address] [place] [address] Osmar Kidd MD Assigned Sleep Provider 09/26/21 [address] [place] [address] documented as of this encounter
--- OUTSIDE RECORDS SUMMARY | 2022-06-15 12:41 | XMS_ITS | Encounter Summary ---
:1945 Author Organization [place] Address [facility]0 [place] [address] Care Team Providers Name Role Phone Chastity Montero MD Unavailable [phone] Johnnie Alcocer MD Unavailable Danni Marcus RN Unavailable Unavailable Mtm, Ea Complex Unavailable Unavailable [facility]lana Osman [facility] Unavailable [phone] Haylie Cheung [facility] Unavailable [phone] Jaiden Holcomb MD Unavailable Patience Toussaint NP Unavailable Brook Sánchez MD Unavailable Yane Barraza MD Primary Care Provider Osmar Kidd MD Unavailable Erlinda Barber MD Unavailable Encounter Details Date Type Department Care Team Description 12/03/2021 Orders Only [facility] Yane Barraza MD Paroxysmal atrial Clinic [place] [address] [facility] fibrillation (H) [address] (Primary Dx) [facility] [address] [place] [address] [address] [place] [address] (Work) [phone] Social History Tobacco Use Types Packs/Day Years [...] More than 4 times per year 05/03/2021 adventism services? Do you belong to any clubs [...] Description 11/15/2022 Virtual Visit Pharm Haylie Gonzalez, [facility] [address] [facility] [place] [address] (Wo rk) 11/15/2022 Virtual Visit IM/Peds Yane Barraza MD [address] [place] [id number] (Wo winter) 03/03/2023 Virtual Visit Neurology Erlinda Barber MD [address] [place] [address] 295 [place], [place] [id number] (Wo rk) documented as of this encounter Visit Diagnoses Diagnosis Paroxysmal atrial fibrillation (H) - Jessica antonia Atrial fibrillation documented in this encounter Additional Health Concerns Assessment Noted Time PHQ-9 Depression Total Score: 4 04/12/2019 7:03 AM CDT documented as of this encounter Care Teams Machinery Repair Maintenance Supervisor Relationship Specialty Start Date End Date Yane Barraza MD PCP - General Internal Medicine 10/04/21 12/07/21 [address] [employer] [place] [id number] Chastity Montero MD Dermatology 09/23/14 MD Martha [address] [facility] 98 [place], [place] [address] Johnnie Alcocer MD Surgeon General Surgery 03/23/[address] [place], [place] [phone] Danni Marcus, RN Personal Advocate & 01/09/1901/17 Liaison (PAL) Fernando, Ea Complex 04/23/19 Svetlana Osman Pharmacist Pharmacotherapy 04/23/19 Era, [facility] [address] [place], [place] [id number] Haylie Cheung, Pharmacist Pharmacist 09/11/19 [facility] [address] [facility] [address] [place], [place] [id number] Jaiden Holcomb Assigned PCP 05/24/20 MD Jayesh [address] [place] [id number] Patience Toussaint, VIANEY Assigned Surgical 01/29/21 02/11/22 [address] [facility] Provider [address] [place], [place] [phone] Brook Sánchez MD Assigned Infectious 07/04/[address] [place] [address] Disease Provider [place], [place] [address] Osmar Kidd MD Assigned Sleep Provider 09/26/21 [address] [facility] 103 [place], [place] [address] Erlinda Barber MD Assigned Neuroscience 10/24/21 [address] [facility] Provider 295 [place], [place] [address] documented as of this encounter
--- OUTSIDE RECORDS SUMMARY | 2022-06-15 12:41 | XMS_ITS | Encounter Summary ---
:1945 Author Organization [place] Address [address] [place] [address] Care Team Providers Name Role Phone Chastity Montero MD Unavailable [phone] Johnnie Alcocer MD Unavailable Danni Marcus RN Unavailable Unavailable Mtm, Ea Complex Unavailable Unavailable Svetlana Osman [facility] Unavailable [phone] Haylie Cheung [facility] Unavailable [phone] Jaiden Holcomb MD Unavailable Patience Toussaint NP Unavailable Brook Sánchez MD Unavailable Yane Barraza MD Primary Care Provider Osmar Kidd MD Unavailable Erlinda Barber MD Unavailable Reason for Referral Home Health Therapies & Aides (Routine: Next available opening) - Referral NOT Required Specialty Diagnoses / Procedures Referred By Contact Refer red To Contact Diagnoses Acute diastolic heart failure (H) Pressure ulcer of ischium, left, stage IV (H) Lymphedema of both lower extremities Foot drop, left Left leg weakness Jaiden Holcomb [facility] MD Jayesh [address] [phone] Referral ID Status Reason Start Date Expiration Date Visits V isits Requested Authorized [id number] Referral NOT 12/10/2021 12/10/2022 1 1 Required CV Cardio consult (Routine: Next available opening) - Closed Specialty Diagnoses / Procedures Referred By Contact Refer red To Contact Cardiovascular Disease Diagnoses Atrial fibrillation, unspecified type (H) Acute diastolic heart failure (H) Jaiden Holcomb [facility] Jayesh SERVICES [address] [facility] [address] [place], [place] [address] [address] [place] [address] Phone: Referral ID Status Reason Start Date Expiration Date Visits Requ ested Visits Authorized [id number] Closed 12/06/2021 12/06/2022 1 1 Encounter Details Date Type Department Care Team Description 12/06/2021 Virtual Visit [facility] Jaiden Holcomb Atri al fibrillation, unspecified type (H) (Primary Dx); Clinic Yarelis Mcconnell MD Acute diastolic heart failure (H); [address] [place] [address] Hand cramps; [place], [place] Pressure ulcer of ischium, l eft, stage IV (H); [address] [address] Lymphedema of both lower extremities; [place] [address] Foot drop, left; Left leg weakness Social History Tobacco Use Types Packs/Day Years [...] or relatives? How often do you attend anabaptism or More than 4 times per year 05/03/2021 sabianist services? Do you belong to any clubs or No 05/03/2021 organizations such as anabaptism groups, unions, fraternal or athletic groups, or [...] PM CDT documented as of this encounter Patient Instructions Patient InstructionsWiJaiden sharpe MD - 12/06/2021 12:03 PM CDT Recommendations from today's Complex Care Team visit: Thank you for participating in our complex care team visit today! Continue Furosemide (Lasix) 20mg daily. Hold a dose if you feel lightheaded. Stop Jardiance. Decrease Atorvastatin to 20mg (1/2 tablet) in the evening. Remain on a low sodium diet (less than 2000mg a day). If your weight goes above 350 lbs or you have worsening shortness of breath or chest pains, let Dr. Holcomb know. Have Home Care checking blood pressure, goal of less than 140/90. Plan on checking labs at [facility] on Monday (BMP, Magnesium, Phos). Referral to cardiology. If you don't hear from a physician representative within 2 business days, please call [phone]. Next care team visit: Keep appointment with Dr. Barraza on January 11. Please feel free to contact us with any questions or concerns you have. You may reach the complex care team directly at [phone]. Please feel free to leave a voicemail if we are not available and we will return your call as soon as possible. My Care Team Members Dr. Holcomb Nurse KODY(s) Genevieve It was great to speak with you today. I value your experience and would be very thankful for your time with providing feedback on our clinic survey. You may receive a survey via email or text message in the next few days. documented in this encounter Progress Notes Jaiden Holcomb MD - 12/06/2021 11:00 AM CDT Assessment/Plan Problem List Items Addressed This Visit Nervous and Auditory Left leg weakness Relevant Orders Home Care Referral Circulatory Atrial fibrillation, unspecified type (H) - Primary Relevant Orders Adult Cardiology Eval Sales Representative [facility] Referral Acute diastolic heart failure (H) 1. Continue Furosemide (Lasix) 20mg daily. Hold a dose if you feel lightheaded. 2. Stop Jardiance. 3. Decrease Atorvastatin to 20mg (1/2 tablet) in the evening. 4. Remain on a low sodium diet (less than 2000mg a day). 5. If your weight goes above 350 lbs or you have worsening shortness of breath or chest pains, let Dr. Holcomb know. 6. Have Home Care checking blood pressure, goal of less than 140/90. 7. Plan on checking labs at [facility] on Monday (BMP, Magnesium, Phos). 8. Referral to cardiology. If you don't hear from a physician representative within 2 business days, please call [phone]. Relevant Orders Basic metabolic panel (Ca, Cl, CO2, Creat, Gluc, K, Na, BUN) Phosphorus Magnesium Adult Cardiology Eval Sales Representative [facility] Referral Home Care Referral Musculoskeletal and Integumentary Lymphedema of both lower extremities Reorder for wound care as [facility] is not able to provider services needed for patient. Will need to monitor and assess lymphedema of lower extremities. Relevant Orders Home Care Referral Foot drop, left Relevant Orders Home Care Referral Pressure ulcer of ischium, left, stage IV (H) Patient with chronic left ischial wound for years now, had prior debridement with resulting left sacral nerve injury and with chronic left leg weakness and left foot drop. Patient follows at [facility] for wound cares every 1-2 weeks. Reorder for wound care as [facility] is not able to provider services needed for patient. Relevant Orders Home Care Referral Other Visit Diagnoses Hand cramps Relevant Orders Basic metabolic panel (Ca, Cl, CO2, Creat, Gluc, K, Na, BUN) Phosphorus Magnesium No results found for any visits on 12/06/21. Health Maintenance Due Topic Date Due ??? ZOSTER IMMUNIZATION (1 of 2) Never done ??? MEDICARE ANNUAL WELLNESS VISIT 01/10/2020 ??? COVID-19 Vaccine (4 - Booster for Pfizer series) 09/13/2021 ??? ADVANCE CARE PLANNING 01/03/2022 Video -Visit Details Type of service: Video Visit Video Start Time: 11:10am Video End Time: 12:14am Originating Location (pt. Location): Home Distant Location (provider location): [facility] Platform used for Video Visit: [facility] Follow-up Visit: Hospital/Penitentiary/IP Rehab Facility: [facility] Date of Admission: 11/30/21 Date of Discharge: 12/03/21 Reason(s) for Admission: Chest pains, new diastolic heart failure, morbid obesity Was your hospitalization related to COVID-19? No Problems taking medications regularly: None Medication changes since discharge: None Problems adhering to non-medication therapy: None Summary of hospitalization: CareEverywhere information obtained and reviewed Diagnostic Tests/Treatments reviewed. Follow up needed: PCP, labs for CBC, BMP, follow up with cardiology Other Healthcare Providers Involved in Patient???s Care: Homecare Update since discharge: improved. Post Discharge Medication Reconciliation: discharge medications reconciled and changed, per note/orders. Plan of care communicated with patient Subjective Patient mentions prior to admission last Monday, she has developed chest pains over night from her upper back to her front chest where tylenol helped. This happened again Monday morning with pains and shortness of breath when laying down. She called 911 and was taken to [facility]. She did have small amounts of pleural effusion and congestion CXR. Echo showed preserved ejection fraction with afib seen on imaging. Mentions she was having some shortness of breath before going in. Mentions she always has leg swelling. Her weight before the hospital on her home scale was 366 lbs. She was told her weight at the hospital was 355 lbs while on the bed. She mentions she got IV lasix and weight decreased by about 20 lbs. Her weight this morning was 348 lbs. When she left the hospital a few days agoshe was told her weight was 345 lbs on the bed. Denies any chest pains or shortness of breath since her hospital stay. She mentions he was put on metoprolol, atorvastatin, jardiance and lasix without much explanation. Mentions she she doesn't want more problems that she already has. She was reading on jardiance and risk of urine infections. She denies any lightheadedness but did start feeling some tingling when urinating. She also mentions some tingling in her hands. She mentions she is usually on a low sodium diet. She hasn't feel any palpitations before or after the hospital stay. She mentions they changed her from use of atenolol to metoprolol. Mentions she was suppose to be set up with Home care from [place] and number she has is [phone]. I tried calling the number but told Charlette was not in their system to be seen. Charlette's INDUSTRIAL ECONOMIST aid from [facility] called and was told a nurse might be coming out tomorrow without a specific time. Discussed weight loss efforts. Patient mentions she would like to remain on her current diet with low sodium. She continues on a high protein diet due to her chronic wound along her buttock. She lookedup ozempic and is hesitant on starting due to possible retinal disease associated with it and that she had macular degeneration. Documentation of Face to Face and Certification for Home Health Services I certify that patient: Charlette Brush is under my care and that I, or a nurse practitioner or physician's specimen preparation assistant working with me, had a [id number] encounter that meets the physician bzxg-ww-[id number] encounter requirements with this patient on: 12/06/2021. 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 I certify that, based on my findings, the following services are medically necessary home health services: Nursing, Physical Therapy and wound care and lymphedema treatments. My clinical findings support the need for the above services because: Nurse is needed: To assess left sacral wound, monitoring of heart failure. Also needs lymphedema treatment. after changes in medications or other medical regimen. and assessment of mobility. Further, I certify that my clinical findings support that this patient is homebound (i.e. absences from home require considerable and taxing effort and are for medical reasons or sabianist services or infrequently or of short duration when for other reasons) because: Requires assistance of another person or specialized equipment to access medical services because patient: Range of motion limitations prevents ability to exit home safely. and Requires supervision of another for safe transfer... Based on the above findings. I certify that this patient is confined to the home and needs intermittent fpc care, physical therapy and/or speech therapy. The patient is under my care, and Talia initiated the establishment of the plan of care. This patient will be followed by a physician who will periodically review the plan of care. Physician/Provider to provide follow up care: Jaiden Holcomb MD Attending hospital physician (the Medicare certified [place] provider): Jaiden Holcomb MD Physician Signature: See electronic signature associated with these discharge orders. Date: 12/06/2021 Review of Systems Constitutional: Negative for chills and fever. Respiratory: Negative for shortness of breath. Cardiovascular: Positive for peripheral edema. Negative for chest pain. Gastrointestinal: Negative for abdominal pain, constipation and diarrhea. Genitourinary: Negative for dysuria. Musculoskeletal: Positive for arthralgias. Skin: Positive for wound. Neurological: Negative for light-headedness. Psychiatric/Behavioral: Negative for mood changes. History Past Medical History: Diagnosis Date ??? Acute [...] Patient has appointment with Retina Specialist at [facility] on 01/11. 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 [...] & Plan: Appointment with Retina Specialist at [facility] on 01/11/19. ??? Morbid obesity [...] Referral placed for Dr. Kajal Huggins at [facility] in [place] per patient request. She has contact i [...] fatigue doesn't int ??? Sepsis (H) ??? Sepsis, due to unspecified organism 10/28/2017 ??? Sleep apnea CPAP at night ??? Transient confusion ??? Vitamin D deficiency 11/23/2011 Overview: (Problem list name updated by automated process. Provider to review and confirm.) ??? Weakness left lower limb ??? Wound, open coccyx L Past Surgical History: Procedure Laterality Date ??? CATARACT IOL, RT/LT Bilateral 2018 [facility] ??? CHOLECYSTECTOMY ??? CHOLECYSTECTOMY, OPEN [...] LENS IMPLANTATION; Surgeon: Bernabe Crespo MD; Location: [facility] ??? PHACOEMULSIFICATION CLEAR CORNEA WITH STANDARD INTRAOCULAR LENS IMPLANT Right 02/20/2019 Procedure: RIGHT CATARACT EXTRACTION WITH INTRAOCULAR LENS IMPLANTATION; Surgeon: Bernabe Crespo MD; Location: [facility] ??? PICC 05/07/2020 ??? TONSILLECTOMY ? ? TONSILLECTOMY & ADENOIDECTOMY Family History Problem Relation Age of Onset [...] hx of ??? Transient ischemic attack Mother Social History Tobacco Use ??? Smoking status: Never Smoker ??? Smokeless tobacco: Never Used Substance Use Topics ??? Alcohol use: No Objective There were no vitals taken for this visit. Vitals taken by Jaiden Holcomb MD Physical Exam Constitutional: General: She is not in acute distress. Appearance: She is not ill-appearing or toxic-appearing. Pulmonary: Effort: Pulmonary effort is normal. Neurological: Mental Status: She is alert. Psychiatric: Mood and Affect: Mood normal. Thought Content: Thought content normal. Limited exam due to video visit I spent greater than 50% of the 64 minutes in the visit coordinating care regarding patient's recommendations towards post hospital visit Return in about 5 weeks (around 01/11/2022). Patient to reestablish with Dr. Barraza in December. Patient's support system: Family Jaiden Holcomb MD [facility] [place] documented in this encounter Miscellaneous Notes Assessment & Plan Note - Jaiden Holcomb MD - 12/10/2021 12:05 PM CDT Associated Problem(s): Lymphedema of both lower extremities Reorder for wound care as [facility] is not able to provider services needed for patient. Will need to monitor and assess lymphedema of lower extremities. Assessment & Plan Note - Jaiden Holcomb MD - 12/10/2021 12:03 PM CDT Associated Problem(s): Pressure ulcer of ischium, left, stage IV (H) Patient with chronic left ischial wound for years now, had prior debridement with resulting left sacral nerve injury and with chronic left leg weakness and left foot drop. Patient follows at [facility] for wound cares every 1-2 weeks. Reorder for wound care as [facility] is not able to provider services needed for patient. Assessment & Plan Note - Jaiden Holcomb MD - 12/10/2021 12:01 PM CDT Associated Problem(s): Acute diastolic heart failure (H) 1. Continue Furosemide (Lasix) 20mg daily. Hold a dose if you feel lightheaded. 2. Stop Jardiance. 3. Decrease Atorvastatin to 20mg (1/2 tablet) in the evening. 4. Remain on a low sodium diet (less than 2000mg a day). 5. If your weight goes above 350 lbs or you have worsening shortness of breath or chest pains, let Dr. Holcomb know. 6. Have Home Care checking blood pressure, goal of less than 140/90. 7. Plan on checking labs at [facility] on Monday (BMP, Magnesium, Phos). 8. Referral to cardiology. If you don't hear from a physician representative within 2 business days, please call [phone]. documented in this encounter Plan of Treatment Upcoming Encounters Date Type Specialty Care Team Description 11/15/2022 Virtual Visit Pharm Haylie Gonzalez, [facility] [address] [address] [place] [address] (Wo rk) 11/15/2022 Virtual Visit IM/Yane Mathias MD [address] [facility] [place] [address] (Wo rk) 03/03/2023 Virtual Visit Neurology Erlinda Barber MD [address] [facility] [address] [place] [address] (Wo rk) Scheduled Referrals Name Type Priority Associated Diagnoses Order [facility] Adult Cardiology Referral Routine: Next Atrial fibrillation, Ex pected: Eval Sales Representative [facility] available opening unspecified ty pe (H) 12/06/2021 Referral Acute diastolic (Approximate ), heart failure (H) Expires: 12/06/2022 Home Care Referral Referral Routine: Next Acute diastolic Order ed: available opening heart failure (H) 12/10/2021 Pressure ulcer of ischium, left, stage IV (H) Lymphedema of both lower extremitie s Foot drop, left Left leg weakness documented as of this encounter Results Magnesium (12/17/2021 4:17 PM CDT) P athologist Signature Magnesium 2.1 1.6 - 2.3 [...] City/State/ZIP Code Phon [place] [address] Care Lab [address] Lab (1st floor, no room number) Phosphorus (12/17/2021 4:17 PM CDT) P athologist Signature Phosphorus 3.4 2.5 - 4.5 [...] Address City/State/ZIP Code [place] [address] Care Lab [address] Lab (1st floor, no room number) [...] and gender (Angelina et al., NEJM, DOI: 10.1056/[id number]) Specimen Anatomical Collection Method / Collection Time Recei yudy Time (Source) Location / Volume Laterality Blood STRUCTURE OF LEFT Venipuncture / 12/17/2021 4:17 12/17 4:17 UPPER LIMB / Unknown PM CDT PM CDT Unknown Jaiden Holcomb MD LAB - BLOOD ORDERABLES Performing Organization Address City/State/ZIP Code [place] [address] Care Lab [address] Lab (1st floor, no room number) documented in this encounter Visit Diagnoses Diagnosis Atrial fibrillation, unspecified type (H ) - Primary Acute diastolic heart failure (H) Acute diastolic heart failure Hand cramps Cramp of limb Pressure ulcer of ischium, left, stage I V (H) Lymphedema of both lower extremities Foot drop, left Other acquired deformity of ankle and fo ot Left leg weakness Other musculoskeletal symptoms referable to limbs documented in this encounter Additional Health Concerns Assessment Noted Time PHQ-9 Depression Total Score: 4 04/12/2019 7:03 AM CDT documented as of this encounter Care Teams Field Adjuster Relationship Specialty Start Date End Date Yane Barraza MD PCP - General Internal Medicine 10/04/21 12/07/21 [address] [facility] [place] [address] Chastity Montero MD Dermatology 09/23/14 MD Martha [address] [facility] [address] [place] [address] Johnnie Alcocer MD Surgeon General Surgery 03/23/[address] [place], [place] [address] Danni Marcus, CHANDLER Personal Advocate & 01/09/1901/17 Liaison (PAL) [place], Ea Complex 04/23/19 Svetlana Osman Pharmacist Pharmacotherapy 04/23/19 Era, [facility] [address] [facility] [place] [address] Haylie Cheung, Pharmacist Pharmacist 09/11/19 [facility] [address] [facility] [address] [place], [place] [id number] Jaiden Holcomb Assigned PCP 05/24/20 MD Jayesh [address] [place] [address] Patience Toussaint NP Assigned Surgical 01/29/21 02/11/22 [address] [facility] Provider [address] [place] [address] Brook Sánchez MD Assigned Infectious 07/04/[address] [place] [address] SE Disease Provider [place], [place] [address] Osmar Kidd MD Assigned Sleep Provider 09/26/21 [address] [place], [place] [address] Erlinda Barber MD Assigned Neuroscience 10/24/21 [address] [facility] Provider [address] [place], [place] [address] documented as of this encounter
--- OUTSIDE RECORDS SUMMARY | 2022-06-15 12:41 | XMS_ITS | Encounter Summary ---
:1945 Author Organization [place] Address [address] [place] [address] Care Team Providers Name Role Phone Chastity Montero MD Unavailable [phone] Johnnie Alcocer MD Unavailable Danni Marcus RN Unavailable Unavailable Mtm, Ea Complex Unavailable Unavailable Svetlana Osman [facility] Unavailable [phone] Haylie Cheung [facility] Unavailable [phone] Jaiden Holcomb MD Unavailable Patience Toussaint NP Unavailable Brook Sánchez MD Unavailable Yane Barraza MD Primary Care Provider Osmar Kidd MD Unavailable Erlinda Barber MD Unavailable Yane Barraza MD Primary Care Provider Lenore Alcala MD Unavailable Encounter Details Date Type Department Care Team Description 12/06/2021 [facility] Yane Barraza MD [place] [address] [facility] 8[address] [facility] [address] [place] [address] [address] [place] [address] [phone] Social History Tobacco Use Types Packs/Day Years [...] More than 4 times per year 05/03/2021 holiness services? Do you belong to any clubs [...] Notes Telephone Encounter - Gisele Reed - 12/06/2021 2:13 PM CDT Faxed lab orders. Thank you Luis E Carreon Metal Buggy Operator - Complex Care Team Telephone Encounter - Jaiden Holcomb MD - 12/06/2021 12:27 PM CDT Can we send orders over to [facility] where patient gets wound cares for obtaining labs on Monday? Labs are non fasting for BMP, Magnesium, Phosphorus. Jaiden Holcomb MD Internal Medicine [facility] [place], [place] documented in this encounter Plan of Treatment Upcoming Encounters Date Type Specialty Care Team Description 11/15/2022 Virtual Visit Pharm Haylie Gonzalez, [facility] [address] [place] [address] (Wo rk) 11/15/2022 Virtual Visit IM/Peds Yane Barraza MD 3305 [facility] [place] [id number] (Wo rk) 03/03/2023 Virtual Visit Neurology Erlinda Barber MD 420 [facility] 295 [place] [address] (Wo rk) documented as of this encounter Visit Diagnoses Not on filedocumented in this encounter Additional Health Concerns Assessment Noted Time PHQ-9 Depression Total Score: 4 04/12/2019 7:03 AM CDT documented as of this encounter Care Teams Scientific Programmer Relationship Specialty Start Date End Date Yane Barraza MD PCP - General Internal Medicine 10/04/21 12/07/[address] [place] [id number] Yane Barraza MD PCP - General Internal Medicine 12/08/[address] [place] [id number] Chastity Montero MD Dermatology 09/23/14 MD Martha 420 [facility] 98 [place] [address] Johnnie Alcocer MD Surgeon General Surgery 03/23/[address] [place], [place] [id number] Danni Marcus, CHANDLER Personal Advocate & 01/09/1901/17 Liaison (PAL) Fernando, Ea Complex 04/23/19 Svetlana Osman Pharmacist Pharmacotherapy 04/23/19 Era, [facility] [address] [place] [address] Haylie Cheung, Pharmacist Pharmacist 09/11/19 [facility] [address] [facility] [address] [place], [place] [id number] Jaiden Holcomb Assigned PCP 05/24/20 MD Jayesh 909 [place], [place] [address] Patience Toussaint, VIANEY Assigned Surgical 01/29/21 02/11/22 2945 [facility] Provider [address] [place], [place] [address] Brook Sánchez MD Assigned Infectious 07/04/21 9[address] [facility] [place] [address] Osmar Kidd MD Assigned Sleep Provider 09/26/21 [address] [place] [address] Elrinda Barber MD Assigned Neuroscience 10/24/21 420 [facility] Provider 295 [place], [place] [address] Lenore Alcala MD Assigned Heart and 12/18/21 01/21/22 [address] Vascular Provider [address] [place] [address] documented as of this encounter
--- OUTSIDE RECORDS SUMMARY | 2022-06-15 12:41 | XMS_ITS | Encounter Summary ---
:1945 Author Organization [place] Address [address] [place] [address] Care Team Providers Name Role Phone Chastity Montero MD Unavailable [phone] Johnnie Alcocer MD Unavailable Danni Marcus RN Unavailable Unavailable Mtm, Ea Complex Unavailable Unavailable Svetlana Osman [facility] Unavailable [phone] Haylie Cheung [facility] Unavailable [phone] Jaiden Holcomb MD Unavailable [phone] Patience Toussaint NP Unavailable Brook Sánchez MD Unavailable Yane Barraza MD Primary Care Provider Osmar Kidd MD Unavailable Erlinda Barber MD Unavailable Yane Barraza MD Primary Care Provider Lenore Alcala MD Unavailable Haylie Cheung [facility] Unavailable [phone] Gaye Patrick RN Unavailable Unavailable Kenya Abernathy APRN SKILLED TRADES TEACHER Unavailable [phone] Hayley German OD Unavailable [phone] Haylie Cheung [facility] Unavailable [phone] Encounter Details Date Type Department Care Team Description 11/30/2021 Telephone M [facility] Wilbur Holcomb MD [address] [address] [address] [place] [address] [phone] Social History Tobacco Use Types Packs/Day Years [...] or relatives? How often do you attend baptism or More than 4 times per year 05/03/2021 samaritan services? Do you belong to any clubs or No 05/03/2021 organizations such as baptism groups, unions, fraternal or athletic groups, or [...] 11/15/2022 Virtual Visit Pharm Haylie Gonzalez, [facility] [address] [facility] [place] [address] (Wo rk) 11/15/2022 Virtual Visit IM/Peds Yane Barraza MD 5975 [facility] K [facility] [place] [address] (Wo rk) 03/03/2023 Virtual Visit Neurology Erlinda Barber MD 420 [facility] 295 [place] [address] (Wo rk) documented as of this encounter Visit Diagnoses Not on filedocumented in this encounter Additional Health Concerns Assessment Noted Time PHQ-9 Depression Total Score: 4 04/12/2019 7:03 AM CDT documented as of this encounter Care Teams Hospitalist Relationship Specialty Start Date End Date Yane Barraza MD PCP - General Internal Medicine 10/04/21 12/07/21 [address] [employer] [facility] [address] Yane Barraza MD PCP - General Internal Medicine 12/08/21 [address] [employer] [facility] [address] Chastity Montero MD Dermatology 09/23/14 MD Martha 420 [facility] 98 [place], [place] [address] Johnnie Alcocer MD Surgeon General Surgery 03/23/[address] [place], [place] [address] Danni Marcus, CHANDLER Personal Advocate & 01/09/1901/17 Liaison (PAL) Fernando, Ea Complex 04/23/19 Svetlana Osman Pharmacist Pharmacotherapy 04/23/19 Era, [facility] [address] [place] [phone] Haylie Cheung, Pharmacist Pharmacist 09/11/19 [facility] [address] [place] [phone] Jaiden Holcomb Assigned PCP 05/24/20 MD Jayesh [address] [place] [id number] Patience Toussaint, VIANEY Assigned Surgical 01/29/21 02/11/22 2945 [facility] Provider [address] [place], [place] [address] Brook Sánchez MD Assigned Infectious 07/04/[address] Disease Provider [place], [place] [address] Osmar Kidd MD Assigned Sleep Provider 09/26/[address] [place], [place] [address] Erlinda Barber MD Assigned Neuroscience 10/24/21 420 [facility] Provider 295 [place], [place] [address] Lenore Alcala MD Assigned Heart and 12/18/21 01/21/[address] [place] Vascular Provider [address] [place] [address] Haylie Cheung, Assigned MTM Pharmacist 01/08/22 04/01/22 [facility] [address] [place] [address] [id number] Gaye Patrick, RN Personal Advocate & 01/18/22 Liaison (PAL) Kenya Abernathy APRN Assigned Heart and 01/22/22 [employer]AD[employer] TE[employer] Vascular Provider [address] [place] [address] Hayley German Assigned Surgical 02/12/22 Farrah, OD Provider 3306 [facility] [place] [address] Haylie Cheung, Assigned MTM Pharmacist 04/13/22 [facility] [address] [place] [id number] documented as of this encounter
--- OUTSIDE RECORDS SUMMARY | 2022-06-15 12:41 | XMS_ITS | Encounter Summary ---
:1945 Author Organization [place] Address [address] [place] [address] Care Team Providers Name Role Phone Chastity Montero MD Unavailable [phone] Johnnie Alcocer MD Unavailable Dnani Marcus RN Unavailable Unavailable Mtm, Ea Complex Unavailable Unavailable Svetlana Osman [facility] Unavailable [phone] Haylie Cheung [facility] Unavailable [phone] Jaiden Holcomb MD Unavailable [phone] Patience Toussaint NP Unavailable Brook Sánchez MD Unavailable Osmar Kidd MD Unavailable Erlinda Barber MD Unavailable Yane Barraza MD Primary Care Provider Encounter Details Date Type Department Care Team Description 12/16/2021 Travel Social History Tobacco Use Types Packs/Day [...] or relatives? How often do you attend sabianist or More than 4 times per year 05/03/2021 mormon services? Do you belong to any clubs or No 05/03/2021 organizations such as sabianist groups, unions, fraternal or athletic groups, or [...] in contact with No / Unsu re 12/16/2021 2:42 PM CDT someone who was confirmed or suspected to have Coronavirus/COVID-19? documented as of this encounter Plan of Treatment Upcoming Encounters Date Type Specialty Care Team Description 11/15/2022 Virtual Visit Pharm Haylie Gonzalez, [facility] 1440 [facility] [place] [id number] (Wo rk) 11/15/2022 Virtual Visit IM/Peds Yane Barraza MD 1354 [facility] [employer] [facility] [place] [address] (Wo rk) 03/03/2023 Virtual Visit Neurology Erlinda Barber MD 420 [facility] 295 [place] [address] (Wo rk) documented as of this encounter Visit Diagnoses Not on filedocumented in this encounter Additional Health Concerns Assessment Noted Time PHQ-9 Depression Total Score: 4 04/12/2019 7:03 AM CDT documented as of this encounter Care Teams Operation Specialist Relationship Specialty Start Date End Date Yane Barraza MD PCP - General Internal Medicine 12/08/21 [address] [employer] [place] [id number] Chastity Montero MD Dermatology 09/23/14 MD Martha 420 [facility] 98 [place] [address] Johnnie Aloccer MD Surgeon General Surgery 03/23/[address] [place] [address] Danni Marcus, RN Personal Advocate & 01/09/1901/17 Liaison (PAL) Fernando, Ea Complex 04/23/19 Svetlana Osman Pharmacist Pharmacotherapy 04/23/19 Era, [facility] [address] [place] [address] Haylie Cheung, Pharmacist Pharmacist 09/11/19 [facility] [address] [facility] [address] [place], [place] [phone] Jaiden Holcomb Assigned PCP 05/24/20 MD Jayesh 909 [place], [place] [address] Patience Toussaint, VIANEY Assigned Surgical 01/29/21 02/11/22 2945 [facility] Provider [address] [place], [place] [address] Brook Sánchez MD Assigned Infectious 07/04/21 909 [facility] SE Disease Provider [place], [place] [address] Osmar Kidd MD Assigned Sleep Provider 09/26/21 [address] [place] [address] Erlinda Barber MD Assigned Neuroscience 10/24/21 420 [facility] Provider 295 [place] [address] documented as of this encounter
--- OUTSIDE RECORDS SUMMARY | 2022-06-15 12:41 | XMS_ITS | Encounter Summary ---
:1945 Author Organization [place] Address [address] [place] [address] Care Team Providers Name Role Phone Chastity Montero MD Unavailable [phone] Johnnie Alcocer MD Unavailable Danni Marcus RN Unavailable Unavailable Mtm, Ea Complex Unavailable Unavailable Svetlana Osman [facility] Unavailable [phone] Haylie Cheung [facility] Unavailable [phone] Jaiden Holcomb MD Unavailable Patience Toussaint NP Unavailable Brook Sánchez MD Unavailable Yane Barraza MD Primary Care Provider Osmar Kidd MD Unavailable Erlinda Barber MD Unavailable Yane Barraza MD Primary Care Provider Lenore Alcala MD Unavailable Reason for Visit Reason Onset Date Comments Orders 12/03/2021 Encounter Details Date Type Department Care Team Description 12/03/2021 [facility] Yane Barraza MD Orders Yarelis 8265 [facility] 6010 [facility] COMMON [address] [place] [address] [address] [place] [address] [phone] Social History Tobacco Use Types Packs/Day Years [...] More than 4 times per year 05/03/2021 druze services? Do you belong to any clubs [...] Telephone Encounter - Gisele Reed - 12/06/2021 10:40 AM CDT M for Hailey Clarifying who patient's PCP is currently, and who will be once Dr. Holcomb leaves. Thank you Luis E Carreon Nursing Agency Manager - Complex Care Team Telephone Encounter - Jolanta Reddy RN - 12/06/2021 8:18 AM CDT Huddled with AP Kimbrough-she will call patient and explain in detail. Jolanta Reddy RN Telephone Encounter - Yane Barraza MD - 12/05/2021 8:32 PM CDT I will be PCP once Dr. Holcomb leaves but have not seen the patient yet. Please explain the situation to them. Telephone Encounter - Brisa Sweet RN - 12/03/2021 4:30 PM CDT Hailey, home health coordinator, requesting VO for: Delay in start of care on Monday, December 07 for [facility] and PT due to staffing. Verbal okay given. Of note, Hailey is requesting clarification on who PCP is, multiple PCP on file for pt, please advise. Brisa Rader RN documented in this encounter Plan of Treatment Upcoming Encounters Date Type Specialty Care Team Description 11/15/2022 Virtual Visit Pharm D Haylie Cheung, [facility] 1440 [facility] [place] [id number] (Lena max) 11/15/2022 Virtual Visit IM/Peds Yane Barraza MD [address] [employer] [place] [address] (Lena max) 03/03/2023 Virtual Visit Neurology Erlinda Barber MD 420 [facility] 295 [place], [place] [phone] (Wo winter) documented as of this encounter Visit Diagnoses Not on filedocumented in this encounter Additional Health Concerns Assessment Noted Time PHQ-9 Depression Total Score: 4 04/12/2019 7:03 AM CDT documented as of this encounter Care Teams Kiln Hand Relationship Specialty Start Date End Date Yane Barraza MD PCP - General Internal Medicine 10/04/21 12/07/21 [address] [employer] [place] [phone] Yane Barraza MD PCP - General Internal Medicine 12/08/21 [address] [facility] [address] [place] [phone] Chastity Montero MD Dermatology 09/23/14 MD Martha [address] [facility] 98 [place], [place] [address] Johnnie Alcocer MD Surgeon General Surgery 03/23/[address] [place] [address] Danni Marcus, CHANDLER Personal Advocate & 01/09/1901/17 Liaison (PAL) Fernando, Ea Complex 04/23/19 Svetlana Osman Pharmacist Pharmacotherapy 04/23/19 Era, [facility] [address] [place], [place] [phone] Haylie Cheung, Pharmacist Pharmacist 09/11/19 [facility] [address] [place], [place] [phone] Jaiden Holcomb Assigned PCP 05/24/20 MD Jayesh [address] [place] [address] Patience Toussaint, VIANEY Assigned Surgical 01/29/21 02/11/22 2945 [facility] Provider [address] [place], [place] [address] Brook Sánchez MD Assigned Infectious 07/04/[address] [place] [address] Disease Provider [place], [place] [address] Osmar Kidd MD Assigned Sleep Provider 09/26/21 [address] [facility] 103 [place], [place] [address] Erlinda Barber MD Assigned Neuroscience 10/24/21 420 [facility] Provider 295 [place] [address] Lenore Alcala MD Assigned Heart and 12/18/21 01/21/22 [address] [facility] Vascular Provider [address] [place] [id number] documented as of this encounter
--- OUTSIDE RECORDS SUMMARY | 2022-06-15 12:41 | XMS_ITS | Encounter Summary ---
:1945 Author Organization [place] Address [facility] [place] [address] Care Team Providers Name Role Phone Chastity Montero MD Unavailable [phone] Johnnie Alcocer MD Unavailable Danni Marcus RN Unavailable Unavailable Mtm, Ea Complex Unavailable Unavailable Svetlana Osman [facility] Unavailable [phone] Haylie Cheung [facility] Unavailable [phone] Jaiden Holcomb MD Unavailable [phone] Patience Toussaint NP Unavailable Brook Sánchez MD Unavailable Osmar Kidd MD Unavailable Erlinda Barber MD Unavailable Yane Barraza MD Primary Care Provider Lenore Alcala MD Unavailable Encounter Details Date Type Department Care Team Description 12/09/2021 Medical Correspondence [facility] [employer] [facility] Health Info Mgmt Non-Provider Srvcs [address] [facility] [place] [address] Social History Tobacco Use [...] or relatives? How often do you attend anabaptist or More than 4 times per year 05/03/2021 scientology services? Do you belong to any clubs or No 05/03/2021 organizations such as anabaptist groups, unions, fraternal or athletic groups, or [...] Cheung, [facility] [address] [place] [address] (Wo rk) 11/15/2022 Virtual Visit IM/Peds Yane Barraza MD 8186 [facility] [place] [address] (Wo rk) 03/03/2023 Virtual Visit Neurology Erlinda Barber MD 420 [facility] 295 [place], [place] [address] (Wo rk) documented as of this encounter Visit Diagnoses Not on filedocumented in this encounter Additional Health Concerns Assessment Noted Time PHQ-9 Depression Total Score: 4 04/12/2019 7:03 AM CDT documented as of this encounter Care Teams Network Support Engineer Relationship Specialty Start Date End Date Yane Barraza MD PCP - General Internal Medicine 12/08/[address] [facility] [place] [address] Chastity Montero MD Dermatology 09/23/14 MD Martha 420 [facility] 98 [place], [place] [address] Johnnie Alcocer MD Surgeon General Surgery 03/23/[address] [place], [place] [address] Danni Marcus, CHANDLER Personal Advocate & 01/09/1901/17 Liaison (PAL) Fernando Ea Complex 04/23/19 Svetlana Osman Pharmacist Pharmacotherapy 04/23/19 Era, [facility] [address] [place] [address] Haylie Cheung, Pharmacist Pharmacist 09/11/19 [facility] [address] [facility] [address] [place], [place] [phone] Jaiden Holcomb Assigned PCP 05/24/20 MD Jayesh [address] [place] [address] Patience Toussaint NP Assigned Surgical 01/29/21 02/11/22 2945 [facility] Provider [address] [place], [place] [phone] Brook Sánchez MD Assigned Infectious 07/04/[address] [place] [address] Disease Provider [place], [place] [address] Osmar Kidd MD Assigned Sleep Provider 09/26/21 [address] [place], [place] [address] Erlinda Barber MD Assigned Neuroscience 10/24/21 420 [facility] Provider 295 [place] [address] Lenore Alcala MD Assigned Heart and 12/18/21 01/21/22 6[address] [facility] Vascular Provider [address] [place] [address] documented as of this encounter
--- OUTSIDE RECORDS SUMMARY | 2022-06-15 12:41 | XMS_ITS | Encounter Summary ---
:1945 Author Organization [place] Address [address] [facility] [place] [address] Care Team Providers Name Role Phone Chastity Montero MD Unavailable [phone] Johnnie Alcocer MD Unavailable Danni Marcus RN Unavailable Unavailable Mtm, Ea Complex Unavailable Unavailable Svetlana Osman [facility] Unavailable [phone] Haylie Cheung [facility] Unavailable [phone] Jaiden Holcomb MD Unavailable [phone] Patience Toussaint NP Unavailable Brook Sánchez MD Unavailable Yane Barraza MD Primary Care Provider Osmar Kidd MD Unavailable Erlinda Barber MD Unavailable Encounter Details Date Type Department Care Team Description 11/08/2021 Medical Correspondence [facility] Scan, [employer] [facility] Health Info Mgmt Non-Provider Srvcs 2450 [place] [address] Social History Tobacco Use Types Packs/Day [...] or relatives? How often do you attend islam or More than 4 times per year 05/03/2021 holiness services? Do you belong to any clubs or No 05/03/2021 organizations such as islam groups, unions, fraternal or athletic groups, or [...] Virtual Visit Pharm Haylie Gonzalez, [facility] 1440 [facility] [place] [phone] (Wo rk) 11/15/2022 Virtual Visit IM/Peds Yane Barraza MD [address] [facility] [employer] [facility] [place] [phone] (Wo rk) 03/03/2023 Virtual Visit Neurology Erlinda Barber MD 420 [facility] 295 [place] [address] (Wo rk) documented as of this encounter Visit Diagnoses Not on filedocumented in this encounter Additional Health Concerns Assessment Noted Time PHQ-9 Depression Total Score: 4 04/12/2019 7:03 AM CDT documented as of this encounter Care Teams Bronc Breaker Relationship Specialty Start Date End Date Yane Barraza MD PCP - General Internal Medicine 10/04/21 12/07/21 [address] [employer] [place] [id number] Chastity Montero MD Dermatology 09/23/14 MD Martha 420 [facility] 98 [place] [address] Johnnie Alcocer MD Surgeon General Surgery 03/23/[address] [place], [place] [address] Danni Marcus, RN Personal Advocate & 01/09/1901/17 Liaison (PAL) Fernando, Ea Complex 04/23/19 Svetlana Osman Pharmacist Pharmacotherapy 04/23/19 Era, [facility] [address] [place] [address] Haylie Cheung, Pharmacist Pharmacist 09/11/[address] [place], [place] [phone] Jaiden Holcomb Assigned PCP 05/24/20 MD Jayesh 909 [place], [place] [address] Patience Toussaint, VIANEY Assigned Surgical 01/29/21 02/11/22 2945 [facility] Provider [address] [place], [place] [address] Brook Sánchez MD Assigned Infectious 07/04/21 909 [facility] Disease Provider [place], [place] [address] Osmar Kidd MD Assigned Sleep Provider 09/26/21 [address] [place] [address] Erlinda Barber MD Assigned Neuroscience 10/24/21 420 [facility] Provider 295 [place], [place] [address] documented as of this encounter
--- OUTSIDE RECORDS SUMMARY | 2022-06-15 12:41 | XMS_ITS | Encounter Summary ---
:1945 Author Organization [facility] Address [address] [place] [address] Care Team Providers Name Role Phone Chastity Montero MD Unavailable [phone] Johnnie Alcocer MD Unavailable Danni Marcus RN Unavailable Unavailable Mtm, Ea Complex Unavailable Unavailable Svetlana Osman [facility] Unavailable [phone] Haylie Cheung [facility] Unavailable [phone] Jaiden Holcomb MD Unavailable Kajal Huggins MD Unavailable Patience Toussaint NP Unavailable Brook Sánchez MD Unavailable Yane Barraza MD Primary Care Provider Osmar Kidd MD Unavailable Reason for Visit Reason Onset Date Comments Physician Communication 10/07/2021 Dme 10/07/2021 Repair of AFO Lymphedema 10/07/2021 Lymphedema therapy Encounter Details Date Type Department Care Team Description 10/07/2021 [facility] Jaiden Holcomb [facility] Yarelis Mcconnell MD Communication; Dme [address] (Repair of AFO); [place], [place] Lymphedema (Lymphedema [phone] therapy) [place] [address] [phone] Social History Tobacco Use Types Packs/Day Years [...] or relatives? How often do you attend uatsdin or More than 4 times per year 05/03/2021 tenriism services? Do you belong to any clubs or No 05/03/2021 organizations such as uatsdin groups, unions, fraternal or athletic groups, or [...] this encounter Miscellaneous Notes Telephone Encounter - Ekta Azevedo RN - 10/13/2021 8:02 AM CDT Sent another [employer] message to f/up with patient to see what she plans to do and how clinic can help. Will await reply and address in more current encounter. Telephone Encounter - Danni Marcus RN - 10/08/2021 9:50 AM CDT Per encounter of 09/12/19-She got this thru [facility] in [place] two years ago, and thought they came to her home to do a fitting. I called and LM at [facility] to verify if they do home fittings. Eddie phone number is [phone].- My chart message sent to patient to see if she would like to continue with [facility]. Ashli Marcus RN Telephone Encounter - Jaiden Holcomb MD - 10/07/2021 2:29 PM CDT Lymphedema can be with PT downstairs. AFO for her foot drop would be with [facility] to try and replace and refit. I'm not sure of [facility] can fit people with AFO or other suppliers. If she's agreeable, we can send her to both. 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 Patient feels she doesn't have a lymphedema specialist that she is aware of, and that she could schedule appointments with. She has concerns with her lmyphedema pump. Anyone you can recommend on who patient can see? Concern AFOs, originally fitted in 2018, not re-evaluted or re-fitted. There are some broken pieces.Recommendation on who she can see? Callback, Thank you Luis E Carreon Computer Application Developer - Complex Care Team documented in this encounter Plan of Treatment Upcoming Encounters Date Type Specialty Care Team Description 11/15/2022 Virtual Visit Pharm Haylie Gonzalez, [facility] [address] [place] [address] (Wo rk) 11/15/2022 Virtual Visit IM/Peds Yane Barraza MD [address] [place] [id number] (Wo rk) 03/03/2023 Virtual Visit Neurology Erlinda Barber MD [address] [facility] 295 [place], [place] [address] (Wo rk) documented as of this encounter Visit Diagnoses Not on filedocumented in this encounter Additional Health Concerns Assessment Noted Time PHQ-9 Depression Total Score: 4 04/12/2019 7:03 AM CDT documented as of this encounter Care Teams Rn Practitioner Relationship Specialty Start Date End Date Yane Barraza MD PCP - General Internal Medicine 10/04/21 12/07/[address] [place] [id number] Chastity Montero MD Dermatology 09/23/14 MD Martha [address] [facility] 98 [place], [place] [address] Johnnie Alcocer MD Surgeon General Surgery 03/23/17 [address] [facility] [address] [place] [address] Danni Marcus, CHANDLER Personal Advocate & 01/09/1901/17 Liaison (PAL) Fernando, Ea Complex 04/23/19 Svetlana Osman Pharmacist Pharmacotherapy 04/23/19 Era, [facility] [address] [place] [address] Haylie Cheung, Pharmacist Pharmacist 09/11/19 [facility] [address] [place] [address] Jaiden Holcomb Assigned PCP 05/24/20 MD Jayesh [address] [place], [place] [address] Kajal Huggins, Assigned Neuroscience 01/29/21 10/23/21 MD Provider [address] [facility] [address] [place] [address] Patience Toussaint NP Assigned Surgical 01/29/21 02/11/22 [address] [facility] Provider [address] [place] [address] Brook Sánchez MD Assigned Infectious 07/04/21 [address] [facility] [address] Disease Provider [place], [place] [id number] Osmar Kidd MD Assigned Sleep Provider 09/26/21 [address] [address] documented as of this encounter
--- OUTSIDE RECORDS SUMMARY | 2022-06-15 12:41 | XMS_ITS | Encounter Summary ---
:1945 Author Organization [facility] Address [address] [place] [address] Care Team Providers Name Role Phone Chastity Montero MD Unavailable [phone] Johnnie Alcocer MD Unavailable Danni Marcus RN Unavailable Unavailable Mtm, Ea Complex Unavailable Unavailable Svetlana Osman [facility] Unavailable [phone] Haylie Cheung [facility] Unavailable [phone] Jaiden Holcomb MD Unavailable Patience Toussaint NP Unavailable Brook Sánchez MD Unavailable Yane Barraza MD Primary Care Provider Osmar Kidd MD Unavailable Erlinda Barber MD Unavailable Yane Barraza MD Primary Care Provider Reason for Visit Reason Onset Date Comments Home Care/Hospice 12/07/2021 [facility]/Unable to Accept Patient Encounter Details Date Type Department Care Team Description 12/07/2021 [facility] Jaiden Holcomb Home Care/Hospice Clinic Yarelis Mcconnell MD ([facility]/Unable to [facility] [place] [address] [place] [address] Accept Patient) [place], [place] [address] [address] [place] [address] [phone] Social History Tobacco Use Types Packs/Day Years [...] this encounter Miscellaneous Notes Telephone Encounter - Jolanta Reddy RN - 12/10/2021 3:45 PM CDT See the other encounter-regarding home care. See enc. Jolanta Reddy RN Telephone Encounter - Danni Marcus RN - 12/09/2021 1:55 PM CDT TCB. Ashli Marcus RN Telephone Encounter - Gisele Reed - 12/09/2021 11:50 AM CDT [facility] with [facility] left message Returning a call in regards to patient. Callback, Thank you Luis E Carreon Local Superintendent - Complex Care Team Telephone Encounter - Danni Marcus RN - 12/09/2021 10:16 AM CDT Patient sent My chart message that [facility] agency called her this am and they will not be able to provide care for her. Ashli Marcus RN Telephone Encounter - Danni Marcus RN - 12/08/2021 10:31 AM CDT TCB for Tori at [facility] to pose question from Dr. Holcomb in message noted below. Ashli Marcus RN Telephone Encounter - Jaiden Holcomb MD - 12/07/2021 5:12 PM CDT She follows with wound clinic at [facility] every 1-2 weeks, . I believe she sees them again on . I wonder if [facility] is aware of this? She can't be with two HC agencies. I'm wondering if [facility] would be willing to work with [facility] wound care directions? Jaiden Holcomb MD Internal Medicine [facility] [place], [place] Telephone Encounter - Arsen Valdes RN - 12/07/2021 4:53 PM CDT Per discharge note on 11/30/21 (note written on 12/03/21): SW spoke with pt about dc plan and changing home care agency to meet pt needs better. Pt asked if this SW could ask [facility] again to provide services needed. SW spoke with Dhara from [facility]. Per Dhara, [facility] is not able to provide PT or lymphedema wraps for pt. Pt made aware of this. Pt will be followed by [facility]. MARCELLE faxed dc orders to [facility] through [employer]. MARCELLE also called and spoke with Fozia ([phone]) from [facility]. Per Fozia, they will see pt by Monday. I don't think multiple agencies can be assigned to a single patient. Likely be a ways out, but a referral to the wound clinic? - Emmett Valdes (he/him/his), RN - Patient Advocate Liason (PAL) [facility] Telephone Encounter - Jaiden Holcomb MD - 12/07/2021 4:47 PM CDT I would try to call [facility] if the patient can go back to them. We may have to send a referral. I may need to place a F2F note on her recent visit note if they would need this. Jaiden Holcomb MD Internal Medicine [facility] [place] Telephone Encounter - Arsen Valdes RN - 12/07/2021 4:[address] Holcomb: Does this involve any action on our parts. Do you need us to call [facility] on access, or on ability to manage wound care? - Emmett Valdes (frannie/him/his), RN - Patient Advocate Liason (PAL) [facility] Telephone Encounter - Jaiden Holcomb MD - 12/07/2021 4:14 PM CDT The patient was previously with [facility]. May consider referral back to [facility] home for continued wound cares for home. Jaiden Holcomb MD Internal Medicine [facility] [place] Telephone Encounter - Gaye Patrick RN - 12/07/2021 3:00 PM CDT Home Care Unable to Accept Patient due to complexity of her wound. Called and spoke to CHANDLER Valle with [facility]. They are unable to accept patient for home care due to complexity of her wound. Wound is located on patient's left inner buttocks. No measurements taken of wound, but per Tori, would be able to fit her entire fist into the wound. Patient has no one to assist with dressing changes and patient would require daily dressing changes. No fever or signs of infection She also mentioned that patient was unable to get dressed on her own at her visit. TCU was brought up by Tori and patient declined. Routing to PCP to advise. Thanks! Gaye Kamara RN, BSN Telephone Encounter - Gisele Reed - 12/07/2021 2:47 PM CDT Tori, home care nurse with [facility] left message. Had a start of care today for patient. They are unable to accept her. She really needs TCU care. They cant meet her wound care needs. Callback requested, Thank you Luis E Carreon Local Superintendent - Complex Care Team documented in this encounter Plan of Treatment Upcoming Encounters Date Type Specialty Care Team Description 11/15/2022 Virtual Visit Pharm D Haylie Cheung, [facility] [address] [place] [address] (Lena max) 11/15/2022 Virtual [place] [address] [place] [address] [place] [id number] (Lena max) 03/03/2023 Virtual Visit Neurology Erlinda Barber MD [address] [facility] 295 [place], [place] [address] (Wo rk) documented as of this encounter Visit Diagnoses Not on filedocumented in this encounter Additional Health Concerns Assessment Noted Time PHQ-9 Depression Total Score: 4 04/12/2019 7:03 AM CDT documented as of this encounter Care Teams Newspaper Peddler Relationship Specialty Start Date End Date Yane Barraza MD PCP - General Internal Medicine 10/04/21 12/07/21 [facility] [employer] [facility] [address] Yane Barraza MD PCP - General Internal Medicine 12/08/21 [address] [employer] [facility] [address] [place] [id number] Chastity Montero MD Dermatology 09/23/14 MD Martha [address] [facility] 98 [place], [place] [address] Johnnie Alcocer MD Surgeon General Surgery 03/23/17 [address] [facility] [address] [place], [place] [address] Danni Marcus, RN Personal Advocate & 01/09/1901/17 Liaison (PAL) Fernando, Ea Complex 04/23/19 Svetlana Osman Pharmacist Pharmacotherapy 04/23/19 Era, [facility] [address] [place], [place] [id number] Haylie Cheung, Pharmacist Pharmacist 09/11/19 [facility] [address] [place] [address] Jaiden Holcomb Assigned PCP 05/24/20 MD Jayesh [address]09 [place], [place] [address] Patience Toussaint NP Assigned Surgical 01/29/21 02/11/22 [facility]5 [facility] Provider [address] [place] [address] Brook Sánchez MD Assigned Infectious 07/04/21 [address] [facility] Disease Provider [place], [place] [phone] Osmar Kidd MD Assigned Sleep Provider 09/26/21 [address] [place], [place] [address] Erlinda Barber MD Assigned Neuroscience 10/24/21 420 [facility] Provider [address] [place], [place] [address] documented as of this encounter
--- OUTSIDE RECORDS SUMMARY | 2022-06-15 12:41 | XMS_ITS | Encounter Summary ---
:1945 Author Organization [place] Address [facility] [place] [address] Care Team Providers Name Role Phone Chastity Montero MD Unavailable [phone] Johnnie Alcocer MD Unavailable Danni Marcus RN Unavailable Unavailable Mtm, Ea Complex Unavailable Unavailable Svetlana Osman [facility] Unavailable [phone] Haylie Cheung [facility] Unavailable [phone] Jaiden Holcomb MD Unavailable [phone] Kajal Huggins MD Unavailable Patience Toussaint NP Unavailable Brook Sánchez MD Unavailable Yane Barraza MD Primary Care Provider Osmar Kidd MD Unavailable Encounter Details Date Type Department Care Team Description 10/04/2021 Virtual Visit [facility] Jaiden Holcomb Pres sure ulcer of ischium, left, stage IV (H) (Primary Dx); Clinic Yarelis Mcconnell MD Essential hypertension, benign; [address] [facility] Iron deficiency anemia, unspecified iron deficiency anemia type; [place], [place] Constipation, unspecified co nstipation type; [address] [address] Vitamin D deficiency; [place] [address] Dermatitis Social History Tobacco Use Types Packs/Day Years [...] place to sleep or slept in a assisted (including now)? Education Answer Date Recorded What [...] / COVID-19? documented as of this encounter Patient Instructions Patient InstructionsJaiden Holcomb MD - 10/04/2021 2:00 PM CDT Recommendations from today's Complex Care Team visit: Thank you for participating in our complex care team visit today! 1. Refilled medications: Atenolol, Vitamin D, Docusate, Ferosul, Losartan, Nystatin Cream, Nystatin powder, Zinc. 2. Will wish your sister recovery for recent events. Next care team visit: Follow up visit with Dr. Barraza on January 11 at 2:30pm. Follow up with Dr. Holcomb if needed until December. Please feel free to contact us with any questions or concerns you have. You may reach the complex care team directly at [phone]. Please feel free to leave a voicemail if we are not available and we will return your call as soon as possible. My Care Team Members Dr. Holcomb Nurse KODY(s) Genevieev It was great to speak with you today. I value your experience and would be very thankful for your time with providing feedback on our clinic survey. You may receive a survey via email or text message in the next few days. documented in this encounter Progress Notes Jaiden Holcomb MD - 10/04/2021 2:00 PM CDT Assessment/Plan Problem List Items Addressed This Visit Digestive Constipation, unspecified constipation type Continued on Docusate 100mg daily as needed, Bisacodyl 5mg daily prn, Probiotic daily prn. Relevant Medications docusate sodium (COLACE) 100 MG capsule Vitamin D deficiency Recent Vitamin D was 56, normal calcium. Continued on Vitamin D 5000 units daily. Relevant Medications Cholecalciferol (VITAMIN D) 125 MCG (5000 UT) capsule Circulatory Essential hypertension, benign Recent labs with Cr of 0.56 and normal potassium. Has a hx of mild microalbuminuria. Refilling Losartan 50mg daily, Atenolol 25mg twice a day Relevant Medications losartan (COZAAR) 50 MG tablet atenolol (TENORMIN) 25 MG tablet Musculoskeletal and Integumentary Dermatitis Patient tends to have increase moisture with warm weather. Refill Nystatin cream and powder prn. Relevant Medications nystatin (MYCOSTATIN) 563911 UNIT/GM external cream nystatin (NYSTOP) 492753 UNIT/GM external powder Pressure ulcer of ischium, left, stage IV (H) - Primary Developed ulceration at being the floor for 3 days in 2018. Developed necrotizing fasciitis in . Likely had partial sciatic nerve severed with surgery resulting in left foot drop with AFO useand use of 4 wheel walker. Continued on wound cares since that time. Prefers wound expression vs ulcer. Continued on a high protein diet. Continues chronic wound cares with [facility] every 1-2 weeks. Relevant Medications zinc gluconate 50 MG tablet nystatin (MYCOSTATIN) 045579 UNIT/GM external cream nystatin (NYSTOP) 185619 UNIT/GM external powder Hematologic Iron deficiency anemia, unspecified iron deficiency anemia type Recent labs normal. Last colonoscopy was in 2014, normal with recommended repeat in 2024. Patient continues to have a chronic left ischial wound with poor healing. Continued on ferrous sulfate 325mg every other day Relevant Medications ferrous sulfate (FEROSUL) 325 (65 Fe) MG tablet Note: Suspected to have a seizure in the past in 2019 with epileptiform activities on EEG, erik Hernandez. 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 No results found for any visits on 10/04/21. Health Maintenance Due Topic Date Due ??? ZOSTER IMMUNIZATION (1 of 2) Never done ??? MEDICARE ANNUAL WELLNESS VISIT 01/10/2020 Video -Visit Details Type of service: Video Visit Video Start Time: 2:00pm Video End Time: 2:20pm Originating Location (pt. Location): Home Distant Location (provider location): [facility] Platform used for Video Visit: Chas Magana The patient mentions she continues to go to wound care at [facility] every 1-2 weeks. Was having some increased draining but has improved some. No fevers or chills. Discussed recently labs obtained with stable albumin at 3.3. Patient continues to have an increased protein diet for wounds. Iron labs were also looking normal along with vitamin D. A1c was at 5.3. Patient mentions she uses to have her sister drive her to wound cares but unfortunately she had a recent stroke. She was told she may have a Werneke's type of injury and having trouble communicating. She mentions she has some aids that do help her with getting to wound care appointments. Review of Systems Constitutional: Negative for chills and fever. Respiratory: Negative for shortness of breath. Cardiovascular: Negative for chest pain. Gastrointestinal: Negative for abdominal pain, constipation and diarrhea. Genitourinary: Negative for dysuria. Musculoskeletal: Negative for arthralgias. Skin: Positive for wound. Neurological: Negative for light-headedness and paresthesias. Psychiatric/Behavioral: Positive for mood changes. History Past Medical History: [...] Patient has appointment with Retina Specialist at [facility] on 01/11. 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 ??? Lower extremity weakness 03/20/2019 Last Assessment [...] & Plan: Appointment with Retina Specialist at [facility] on 01/11/19. ??? Morbid obesity (H) ??? [...] Referral placed for Dr. Kajal Huggins at [facility] in [place] per patient request. She has contact i [...] LENS IMPLANTATION; Surgeon: Bernabe Crespo MD; Location: [facility] ??? PHACOEMULSIFICATION CLEAR CORNEA WITH STANDARD INTRAOCULAR LENS IMPLANT Right 02/20/2019 Procedure: RIGHT CATARACT EXTRACTION WITH INTRAOCULAR LENS IMPLANTATION; Surgeon: Bernabe Crespo MD; Location: [facility] ??? PICC 05/07/2020 ??? TONSILLECTOMY ? ? [...] General: She is not in acute distress. Pulmonary: Effort: Pulmonary effort is normal. Neurological: Mental Status: She is alert. Psychiatric: Mood and Affect: Mood normal. Thought Content: Thought content normal. Limited exam due to video visit. I spent greater than 50% of the 20 minutes in the visit coordinating care regarding patient's recommendations towards chronic conditions. Return in about 3 months (around 01/11/2022). Patient to return to Dr. Barraza for next regular schedule future care. Patient's support system: Sister Jaiden Holcomb MD [facility] documented in this encounter Miscellaneous Notes Assessment & Plan Note - Jaiden Holcomb MD - 10/09/2021 8:07 PM CDT Associated Problem(s): Pressure ulcer of ischium, left, stage IV (H) Developed ulceration at being the floor for 3 days in 2018. Developed necrotizing fasciitis in 2017. Likely had partial sciatic nerve severed with surgery resulting in left foot drop with AFO use and use of 4 wheel walker. Continued on wound cares since that time. Prefers wound expression vs ulcer. Continued on a high protein diet. Continues chronic wound cares with [facility] every 1-2 weeks. Assessment & Plan Note - Jaiden Holcomb MD - 10/09/2021 8:01 PM CDT Associated Problem(s): Iron deficiency anemia, unspecified iron deficiency anemia type Recent labs normal. Last colonoscopy was in 2014, normal with recommended repeat in 2024. Patient continues to have a chronic left ischial wound with poor healing. Continued on ferrous sulfate 325mg every other day Assessment & Plan Note - Jaiden Holcomb MD - 10/09/2021 8:01 PM CDT Associated Problem(s): Dermatitis Patient tends to have increase moisture with warm weather. Refill Nystatin cream and powder prn. Assessment & Plan Note - Jaiden Holcomb MD - 10/09/2021 8:00 PM CDT Associated Problem(s): Essential hypertension, benign Recent labs with Cr of 0.56 and normal potassium. Has a hx of mild microalbuminuria. Refilling Losartan 50mg daily, Atenolol 25mg twice a day Assessment & Plan Note - Jaiden Holcomb MD - 10/09/2021 7:59 PM CDT Associated Problem(s): Vitamin D deficiency Recent Vitamin D was 56, normal calcium. Continued on Vitamin D 5000 units daily. Assessment & Plan Note - Jaiden Holcomb MD - 10/09/2021 7:58 PM CDT Associated Problem(s): Constipation, unspecified constipation type Continued on Docusate 100mg daily as needed, Bisacodyl 5mg daily prn, Probiotic daily prn. documented in this encounter Plan of Treatment Upcoming Encounters Date Type Specialty Care Team Description 11/15/2022 Virtual Visit Pharm Haylie Gonzalez, [facility] [address] [facility] [place] [address] (Wo rk) 11/15/2022 Virtual Visit IM/Peds Yane Barraza MD [address] [facility] [place] [address] (Wo rk) 03/03/2023 Virtual Visit Neurology Erlinda Barber MD [address] [facility] [address] [place], [place] [id number] (Wo rk) documented as of this encounter Visit Diagnoses Diagnosis Pressure ulcer of ischium, left, stage I V (H) - Primary Essential hypertension, benign Iron deficiency anemia, unspecified iron deficiency anemia type Constipation, unspecified constipation t ype Vitamin D deficiency Unspecified vitamin D deficiency Dermatitis Contact dermatitis and other eczema, due to unspecified cause documented in this encounter Additional Health Concerns Assessment Noted Time PHQ-9 Depression Total Score: 4 04/12/2019 7:03 AM CDT documented as of this encounter Care Teams Manager Pipeline Relationship Specialty Start Date End Date Yane Barraza MD PCP - General Internal Medicine 10/04/21 12/07/21 [address] [facility] [address] [place] [id number] Chastity Montero MD Dermatology 09/23/14 MD Martha [address] [facility] 98 [place], [place] [address] Johnnie Alcocer MD Surgeon General Surgery 03/23/17 [address] [facility] [address] [place], [place] [address] Danni Marcus, CHANDLER Personal Advocate & 01/09/1901/17 Liaison (PAL) Fernando, Ea Complex 04/23/19 Svetlana Osman Pharmacist Pharmacotherapy 04/23/19 Era, [facility] [address] [place] [address] Haylie Cheung, Pharmacist Pharmacist 09/11/19 [facility] [address] [place], [place] [id number] Jaiden Holcomb Assigned PCP 05/24/20 MD Jayesh [address] [place] [id number] Kajal Huggins, Assigned Neuroscience 01/29/21 10/23/21 MD Provider [address] [facility] [address] [place], [place] [phone] Patience Toussaint NP Assigned Surgical 01/29/21 02/11/22 [address] [facility] Provider [address] [place], [place] [id number] Brook Sánchez MD Assigned Infectious 07/04/21 9[address] [facility] SE Disease Provider [place], [place] [phone] Osmar Kidd MD Assigned Sleep Provider 09/26/21 [address], [place] [address] documented as of this encounter
--- OUTSIDE RECORDS SUMMARY | 2022-06-15 12:41 | XMS_ITS | Encounter Summary ---
:1945 Author Organization [place] Address [address] [place] [address] Care Team Providers Name Role Phone Chastity Montero MD Unavailable [phone] Johnnie Alcocer MD Unavailable Danni Marcus RN Unavailable Unavailable Mtm, Ea Complex Unavailable Unavailable Svetlana Osman [facility] Unavailable [phone] Haylie Cheung [facility] Unavailable [phone] Jaiden Holcomb MD Unavailable Patience Toussaint NP Unavailable Brook Sánchez MD Unavailable Osmar Kidd MD Unavailable Erlinda Barber MD Unavailable Yane Barraza MD Primary Care Provider Reason for Visit Reason Onset Date Comments INR Followup 12/16/2021 Encounter Details Date Type Department Care Team Description 12/16/2021 Telephone [facility] Wilbur Holcomb INR Followup Yarelis Mcconnell MD [address] [address] [address] [place] [address] [phone] Social History Tobacco Use Types Packs/Day Years [...] or relatives? How often do you attend confucianist or More than 4 times per year 05/03/2021 worship services? Do you belong to any clubs or No 05/03/2021 organizations such as confucianist groups, unions, fraternal or athletic groups, or [...] this encounter Miscellaneous Notes Telephone Encounter - Sumi Wayne RN - 12/16/2021 9:54 AM CDT Spoke to patient Her new home health company cannot do INR's so she will plan on doing them in a clinic/hospital lab,depending on where she is for other appointments. She will have INR done tomorrow after her visit with Dr. Alcala. Responsible anticoagulation pool changed to [place]. Sumi Wayne RN Telephone Encounter - Danni Marcus RN - 12/16/2021 8:50 AM CDT S-(situation): Patient is asking when next INR draw is due? B-(background): Recently hospitalized at [facility] and INR level was 3.0 on 12/03/21. Please review results in Epic from hospitalization. Patient has a new home care agency that doesn't draw INRs, so will need to make appointment for lab draws when needed. A-(assessment): Patient needs clarification on when next INR is due R-(recommendations): Forwarded to INR team for review and recommendations. Ashli Marcus RN documented in this encounter Plan of Treatment Upcoming Encounters Date Type Specialty Care Team Description 11/15/2022 Virtual Visit Haylie Wakefield, [facility] [address] [place], [place] [phone] (Wo rk) 11/15/2022 Virtual Visit IM/Peds Yane Barraza MD [address] [facility] [address] [place] [id number] (Wo rk) 03/03/2023 Virtual Visit Neurology Erlinda Barber MD [address] [place] [address] 295 [place], [place] [address] (Wo rk) documented as of this encounter Visit Diagnoses Diagnosis 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 embolism - Primary [facility] current use of anticoagulant t herapy Atrial fibrillation, unspecified type (H ) documented in this encounter Additional Health Concerns Assessment Noted Time PHQ-9 Depression Total Score: 4 04/12/2019 7:03 AM CDT documented as of this encounter Care Teams Floor Worker Transfer [place] Relationship Specialty Start Date End Date Yane Barraza MD PCP - General Internal Medicine 12/08/[address] [place] [address] [address] [place], [place] [phone] Chastity Montero MD Dermatology 09/23/14 MD Martha [address] [place] [address] 98 [place], [place] [address] Johnnie Alcocer MD Surgeon General Surgery 03/23/[address] [place] [address] Danni Marcus, RN Personal Advocate & 01/09/1901/17 Liaison (PAL) Fernando, Ea Complex 04/23/19 Svetlana Osman Pharmacist Pharmacotherapy 04/23/19 Era, [facility] [address] [place] [address] Haylie Cheung, Pharmacist Pharmacist 09/11/19 [facility] [address] [place] [phone] Jaiden Holcomb Assigned PCP 05/24/20 MD Jayesh [address] [place] [id number] Paitence Toussaint, VIANEY Assigned Surgical 01/29/21 02/11/[address] [place] [address] Provider [address] [place], [place] [id number] Brook Sánchez MD Assigned Infectious 07/04/[address] [place] [address] Disease Provider [place], [place] [address] Osmar Kidd MD Assigned Sleep Provider 09/26/21 [address] [place], [place] [address] Erlinda Barber MD Assigned Neuroscience 10/24/21 420 [facility] Provider [address] [place], [place] [address] documented as of this encounter
--- OUTSIDE RECORDS SUMMARY | 2022-06-15 12:41 | XMS_ITS | Encounter Summary ---
:1945 Author Organization [place] Address [address] [place] [address] Care Team Providers Name Role Phone Chastity Montero MD Unavailable [phone] Johnnie Alcocer MD Unavailable Danni Marcus RN Unavailable Unavailable Mtm, Ea Complex Unavailable Unavailable Svetlana Osman [facility] Unavailable [phone] Haylie Cheung [facility] Unavailable [phone] Jaiden Holcomb MD Unavailable [phone] Patience Toussaint NP Unavailable Brook Sánchez MD Unavailable Yane Barraza MD Primary Care Provider Osmar Kidd MD Unavailable Erlinda Barber MD Unavailable Encounter Details Date Type Department Care Team Description 11/04/2021 Anticoagulation [facility] Ruben Gonzalez history of pulmonary embolism (Primary Dx); Therapy Visit Anticoagulation Clin ic [place], senior living current use of ant icoagulant therapy; [address], RN Paroxysmal atrial fibrillati on (H) [place] [address] Social History Tobacco Use Types [...] More than 4 times per year 05/03/2021 [employer]? Do you belong to any clubs [...] documented as of this encounter Progress Notes Yanet Gonzalez RN - 11/04/2021 1:15 PM CDT ANTICOAGULATION MANAGEMENT Charlette Brush 76 year old female is on warfarin with therapeutic INR result. (Goal INR 2.0-3.0) Recent labs: (last 7 days) 11/04/21 1300 INR 2.5* ASSESSMENT ??? Source(s): Chart Review [...] INR in 2 weeks Summary As of 11/04/2021 Full warfarin instructions: 10 mg every day Next INR check: 11/18/2021 Telephone call with [facility] home care/facility nurse who verbalizes understanding and agrees to plan Orders given to Homecare nurse/facility to recheck Education provided: Please call back if any changes to your diet, medications or how you've been taking warfarin Plan made per [facility] anticoagulation protocol Yanet Gonzalez, RN Anticoagulation Clinic 11/04/2021 Anticoagulation Episode Summary Current INR goal: 2.0-3.0 TTR: 66.3 % (1 y) Target end date: Indefinite Send INR reminders to: [facility] Indications 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] senior living current use of 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 [Z79.01] Paroxysmal atrial fibrillation (H) [I48.0] Comments: Anticoagulation Care Providers Provider Role Specialty Phone number Gal[facility]ino Valdez MD Referring Family Medicine [phone] Jaiden Holcomb MD Referring Internal Medicine [phone] Lucero Stevenson MD Responsible Internal Medicine [phone] documented in this encounter Plan of Treatment Upcoming Encounters Date Type Specialty Care Team Description 11/15/2022 Virtual Visit Pharm Haylie Gonzalez, [facility] [address] [facility] [place] [address] ([facility]) 11/15/2022 Virtual [place] [address] [place] [address] [place] [address] ( winter) 03/03/2023 Virtual Visit Neurology Erlinda Barber MD [address] [facility] 295 [place] [address] ([facility]) documented as of this encounter Procedures Procedure Name Priority Date/Time Associated Diagnosis Comme nts INR (EXTERNAL Routine 11/04/2021 1:00 PM Results for this RESULT) CDT procedure are i n the results section. documented in this encounter Results (ABNORMAL) INR (External Result) (11/04/2021 1:00 PM CDT) P athologist Signature INR (External) 2.5 (A) 0.9 - 1.1 EXTERNAL LAB Specimen (Source) Anatomical Collection Method Collection Time Re ceived Time Location / / Volume Laterality Blood 11/04/2021 1:00 PM CDT Resulting Agency Comment [facility] Patient Reported LAB - HIM EXTERNAL RESULT Performing Organization Address City/State/ZIP Code Phon e Number EXTERNAL LAB EXTERNAL LAB External Lab documented in this encounter Visit Diagnoses Diagnosis 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 embolism - Primary senior living current use of anticoagulant t herapy Paroxysmal atrial fibrillation (H) Atrial fibrillation documented in this encounter Additional Health Concerns Assessment Noted Time PHQ-9 Depression Total Score: 4 04/12/2019 7:03 AM CDT documented as of this encounter Care Teams Drug Enforcement Administration Agent Relationship Specialty Start Date End Date Yane Barraza MD PCP - General Internal Medicine 10/04/21 12/07/21 [address] [facility] [place] [address] Chastity Montero MD Dermatology 09/23/14 MD Martha [address] [facility] 98 [place] [address] Johnnie Alcocer MD Surgeon General Surgery 03/23/[address] [place], [place] [phone] Danni Marcus, CHANDLER Personal Advocate & 01/09/1901/17 Liaison (PAL) Fernando, Ea Complex 04/23/19 Svetlana Osman Pharmacist Pharmacotherapy 04/23/19 Era [facility] [address] [place] [address] Haylie Cheung, Pharmacist Pharmacist 09/11/19 [facility] [address] [place] [address] Jaiden Holcomb Assigned PCP 05/24/20 MD Jayesh [address] [place] [address] Patience Toussaint NP Assigned Surgical 01/29/21 02/11/22 2945 [facility] Provider [address] [place] [address] Brook Sánchez MD Assigned Infectious 07/04/21 909 [facility] Disease Provider [place], [place] [address] Osmar Kidd MD Assigned Sleep Provider 09/26/21 [address] [place] [address] Erlinda Barber MD Assigned Neuroscience 10/24/21 [address] [facility] Provider [address] [place], [place] [address] documented as of this encounter
--- OUTSIDE RECORDS SUMMARY | 2022-06-15 12:41 | XMS_ITS | Encounter Summary ---
:1945 Author Organization [place] Address [address] [facility] [place] [address] Care Team Providers Name Role Phone Chastity Montero MD Unavailable [phone] Johnnie Alcocer MD Unavailable Danni Marcus RN Unavailable Unavailable Mtm, Ea Complex Unavailable Unavailable Svetlana Osman [facility] Unavailable [phone] Haylie Cheung [facility] Unavailable [phone] Jaiden Holcomb MD Unavailable [phone] Patience Toussaint NP Unavailable Brook Sánchez MD Unavailable Yane Barraza MD Primary Care Provider Osmar Kidd MD Unavailable Erlinda Barber MD Unavailable Encounter Details Date Type Department Care Team Description 11/18/2021 Anticoagulation [facility] Ruben Gonzalez history of pulmonary embolism (Primary Dx); Therapy Visit Anticoagulation Clin ic Yanet, roasterman current use of ant icoagulant therapy; [address], RN Paroxysmal atrial fibrillati on (H) [place] [address] Social History Tobacco Use Types [...] or relatives? How often do you attend christianity or More than 4 times per year 05/03/2021 sabianism services? Do you belong to any clubs or No 05/03/2021 organizations such as christianity groups, unions, fraternal or athletic groups, or [...] encounter Progress Notes Yanet Gonzalez RN - 11/18/2021 12:19 PM CDT ANTICOAGULATION MANAGEMENT Charlette Brush 76 year old female is on warfarin with therapeutic INR result. (Goal INR 2.0-3.0) Recent labs: (last 7 days) 11/18/21 1219 INR 2.6* ASSESSMENT ??? Source(s): Chart Review and Patient/Caregiver [...] INR in 3 weeks Summary As of 11/18/2021 Full warfarin instructions: 10 mg every day Next INR check: 12/09/2021 Telephone call with [facility] home care/facility nurse who verbalizes understanding and agrees to plan Orders given to Homecare nurse/facility to recheck Education provided: Please call back if any changes to your diet, medications or how you've been taking warfarin Plan made per [facility] anticoagulation protocol Yanet Gonzalez, [facility] 11/18/2021 Anticoagulation Episode Summary Current INR goal: 2.0-3.0 TTR: 66.3 % (1 y) Target end date: Indefinite Send INR reminders to: [facility] Indications 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] [facility] current use of 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 [Z79.01] Paroxysmal atrial fibrillation (H) [I48.0] Comments: Anticoagulation Care Providers Provider Role Specialty Phone number Galdino Valdez MD Referring Family Medicine [phone] Jaiden Holcomb MD Referring Internal Medicine [phone] Lucero Stevenson MD Responsible Internal Medicine [phone] documented in this encounter Plan of Treatment Upcoming Encounters Date Type Specialty Care Team Description 11/15/2022 Virtual Visit Pharm Haylie Gonzalez, [facility] [address] [facility] [place] [address] ( winter) 11/15/2022 Virtual Visit IM/Peds Yane Barraza MD [address] [facility] [place] [address] (Lena max) 03/03/2023 Virtual Visit Neurology Erlinda Barber MD [address] [facility] [address] [place] [address] (Lena max) documented as of this encounter Procedures Procedure Name Priority Date/Time Associated Diagnosis Comme nts INR (EXTERNAL Routine 11/18/2021 12:19 PM Results for this RESULT) CDT procedure are i n the results section. documented in this encounter Results (ABNORMAL) INR (External Result) (11/18/2021 12:19 PM CDT) P athologist Signature INR (External) 2.6 (A) 0.9 - 1.1 EXTERNAL LAB Specimen (Source) Anatomical Collection Method Collection Time Re ceived Time Location / / Volume Laterality Blood 11/18/2021 12:19 PM CDT Resulting Agency Comment [facility] Patient Reported LAB - HIM EXTERNAL RESULT Performing Organization Address City/State/ZIP Code Phon e Number EXTERNAL LAB EXTERNAL LAB External Lab documented in this encounter Visit Diagnoses Diagnosis 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 embolism - Primary roasterman current use of anticoagulant t herapy Paroxysmal atrial fibrillation (H) Atrial fibrillation documented in this encounter Additional Health Concerns Assessment Noted Time PHQ-9 Depression Total Score: 4 04/12/2019 7:03 AM CDT documented as of this encounter Care Teams School Plant Consultant Relationship Specialty Start Date End Date Yane Barraza MD PCP - General Internal Medicine 10/04/21 12/07/21 [address] [facility] [place] [address] Chastity Montero MD Dermatology 09/23/14 MD Martha [address] [facility] [address] [place] [address] Johnnie Alcocer MD Surgeon General Surgery 03/23/[address] [place] [address] Danni Marcus, CHANDLER Personal Advocate & 01/09/1901/17 Liaison (PAL) Fernando, Kyle Complex 04/23/19 Svetlana Osman Pharmacist Pharmacotherapy 04/23/19 Era [facility] [address] [place] [address] Haylie Cheung, Pharmacist Pharmacist 09/11/19 [facility] [address] [place] [address] Jaiden Holcomb Assigned PCP 05/24/20 MD Jayesh [address] [place] [address] Ptaience Toussaint NP Assigned Surgical 01/29/21 02/11/22 [address] [facility] Provider [address] [place] [address] Brook Sánchez MD Assigned Infectious 07/04/21 [address] [facility] Disease Provider [place], [place] [address] Osmar Kidd MD Assigned Sleep Provider 09/26/21 [address] [facility] [address] [place], [place] [address] Erlinda Barber MD Assigned Neuroscience 10/24/21 [address] [facility] Provider [address] [place], [place] [address] documented as of this encounter
--- OUTSIDE RECORDS SUMMARY | 2022-06-15 12:41 | XMS_ITS | Encounter Summary ---
:1945 Author Organization [place] Address [address] [place] [address] Care Team Providers Name Role Phone Chastity Montero MD Unavailable Johnnie Alcocer MD Unavailable Danni Marcus RN Unavailable Unavailable Mtm, Ea Complex Unavailable Unavailable Svetlana Osman [facility] Unavailable [phone] Haylie Cheung [facility] Unavailable [phone] Jaiden Holcomb MD Unavailable [phone] Patience Toussaint NP Unavailable Brook Sánchez MD Unavailable Yane Barraza MD Primary Care Provider Osmar Kidd MD Unavailable Erlinda Barber MD Unavailable Encounter Details Date Type Department Care Team Description 12/06/2021 Travel Social History Tobacco Use Types Packs/Day [...] place to sleep or slept in a snf (including now)? Education Answer Date Recorded What is the highest level of school Bachelor's degree (e.g., BA, AB, 01/05/2019 you have completed or the highest BS) degree you have received? Sex Assigned at Date Recorded Female 12/24/2018 12:35 PM CDT documented as of this encounter Plan of Treatment Upcoming Encounters Date Type Specialty Care Team Description 11/15/2022 Virtual Visit Pharm Haylie Gonzalez, [facility] [address] [place] [address] (Wo rk) 11/15/2022 Virtual Visit IM/Peds Yane Barraza MD [address] [facility] [employer] [facility] [place] [address] (Wo rk) 03/03/2023 Virtual Visit Neurology Erlinda Barber MD [address] [facility] 295 [place] [address] (Wo rk) documented as of this encounter Visit Diagnoses Not on filedocumented in this encounter Additional Health Concerns Assessment Noted Time PHQ-9 Depression Total Score: 4 04/12/2019 7:03 AM CDT documented as of this encounter Care Teams Marketing Assistant Manager Relationship Specialty Start Date End Date Yane Barraza MD PCP - General Internal Medicine 10/04/21 12/07/21 [address] [facility] [place] [address] Chastity Montero MD Dermatology 09/23/14 MD Martha [address] [facility] 98 [place], [place] [address] Johnnie Alcocer MD Surgeon General Surgery 03/23/[address] [place] [address] Danni Marcus, RN Personal Advocate & 01/09/1901/17 Liaison (PAL) Kyle King Complex 04/23/19 Svetlana Osman Pharmacist Pharmacotherapy 04/23/19 Era, [facility] [address] [place] [address] Haylie Cheung, Pharmacist Pharmacist 09/11/19 [facility] [address] [place] [address] [place] [address] Jaiden Holcomb Assigned PCP 05/24/20 MD Jayesh [address] [place] [address] Patience Toussaint NP Assigned Surgical 01/29/21 02/11/22 [address] [facility] Provider [address] [place] [address] Brook Sánchez MD Assigned Infectious 07/04/[address] [place] [address] Disease Provider [place], [place] [address] Osmar Kidd MD Assigned Sleep Provider 09/26/21 [address] [place], [place] [address] Erlinda Barber MD Assigned Neuroscience 10/24/21 [address] [facility] Provider [address] [place], [place] [address] documented as of this encounter
--- OUTSIDE RECORDS SUMMARY | 2022-06-15 12:42 | XMS_ITS | Encounter Summary ---
:1945 Author Organization [place] Address [address] [facility] [place] [address] Care Team Providers Name Role Phone Chastity Montero MD Unavailable [phone] Johnnie Alcocer MD Unavailable Danni Marcus RN Unavailable Unavailable Mtm, Ea Complex Unavailable Unavailable Svetlana Osman [facility] Unavailable [phone] Haylie Cheung [facility] Unavailable [phone] Jaiden Holcomb MD Primary Care Provider [phone] Jaiden Holcomb MD Unavailable [phone] Kajal Huggins MD Unavailable Patience Toussaint NP Unavailable Brook Sánchez MD Unavailable Encounter Details Date Type Department Care Team Description 09/16/2021 Anticoagulation [facility] Ruben Briceño history of pulmonary embolism (Primary Dx); Therapy Visit Anticoagulation Columba Walton RN [facility] current use of 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; Clinic Paroxysmal atrial fibrillati on (H) [address] [place] [address] Social History Tobacco Use Types [...] 05/03/2021 organizations such as mosque groups, unions, fraternal or athletic groups, or [...] been in contact with No / Unsure 09/09/2021 9:43 AM WALKING DRAGLINE OILER someone who was confirmed or suspected to have Coronavirus / COVID-19? documented as of this encounter Progress Notes Columba Briceño RN - 09/16/2021 11:12 AM CST ANTICOAGULATION MANAGEMENT Charlette Velma Gosevennithin 76 year old female is on warfarin with therapeutic INR result. (Goal INR 2.0-3.0) Recent labs: (last 7 days) 09/16/21 1058 INR 3.0* ASSESSMENT ??? Source(s): Chart Review and Home [...] INR in 1 week Summary As of 09/16/2021 Full warfarin instructions: 10 mg every day Next INR check: 09/24/2021 Telephone call with home care nurse Galdino, , who verbalizes understanding and agrees to plan Orders given to Homecare nurse/facility to recheck Education provided: None required Plan made per [facility] anticoagulation protocol Columba Briceño, RN Anticoagulation Clinic 09/16/2021 Anticoagulation Episode Summary Current INR goal: 2.0-3.0 TTR: 72.1 % (1 y) Target end date: Indefinite Send INR reminders to: [facility] Indications 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] 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 [Z79.01] Paroxysmal atrial fibrillation (H) [I48.0] Comments: Anticoagulation Care Providers Provider Role Specialty Phone number Galdino Valdez MD Referring Family Medicine [phone] Jaiden Holcomb MD Referring Internal Medicine [phone] Lucero Stevenson MD Responsible Internal Medicine [phone] ING DRAGLINE OILER documented in this encounter Plan of Treatment Upcoming Encounters Date Type Specialty Care Team Description 11/15/2022 Virtual Visit Pharm Haylie Gonzalez, [facility] [address] [facility] [place] [address] (Wo rk) 11/15/2022 Virtual [place] [address] [place] [address] [place] [address] (Lena max) 03/03/2023 Virtual Visit Neurology Erlinda Barber MD [address] [facility] 295 [place] [address] (Wo rk) documented as of this encounter Procedures Procedure Name Priority Date/Time Associated Diagnosis Comme nts INR (EXTERNAL Routine 09/16/2021 10:58 AM Results for this RESULT) WALKING DRAGLINE OILER procedure are i n the results section. documented in this encounter Results (ABNORMAL) INR (External Result) (09/16/2021 10:58 AM WALKING DRAGLINE OILER) P athologist Signature INR (External) 3.0 (A) 0.9 - 1.1 EXTERNAL LAB Specimen (Source) Anatomical Collection Method Collection Time Re ceived Time Location / / Volume Laterality Blood 09/16/2021 10:58 AM WALKING DRAGLINE OILER Resulting Agency Comment Home care Patient Reported LAB - HIM EXTERNAL RESULT Performing Organization Address City/State/ZIP Code Phon e Number EXTERNAL LAB EXTERNAL LAB External Lab documented in this encounter Visit Diagnoses Diagnosis 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 embolism - 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 Paroxysmal atrial fibrillation (H) Atrial fibrillation documented in this encounter Additional Health Concerns Assessment Noted Time PHQ-9 Depression Total Score: 4 04/12/2019 7:03 AM CDT documented as of this encounter Care Teams Neurological Physiotherapist Relationship Specialty Start Date End Date Jaiden Holcomb PCP - General Internal Medicine 02/13/2010/03 MD Jayesh [address] [place] [address] [place], [place] [id number] Chastity Montero MD Dermatology 09/23/14 MD Martha [address] [facility] 98 [place] [address] Johnnie Alcocer MD Surgeon General Surgery 03/23/[address] [place], [place] [id number] Danni Marcus, CHANDLER Personal Advocate & 01/09/1901/17 Liaison (PAL) Mtkinsey, Ea Complex 04/23/19 Svetlana Osman Pharmacist Pharmacotherapy 04/23/19 Era, [facility] [address] [place] [address] Haylie Cheung, Pharmacist Pharmacist 09/11/19 [facility] [address] [place] [address] Jaiden Holcomb Assigned PCP 05/24/20 MD Jayesh [address] [place] [address] Kajal Huggins, Assigned Neuroscience 01/29/21 10/23/21 MD Provider [address] [place] [address] [address] [place] [address] Patience Toussaint NP Assigned Surgical 01/29/21 02/11/22 [address] [facility] Provider [address] [place], [place] [address] Brook Sánchez MD Assigned Infectious 07/04/21 [address] [facility] [address] [place] [address] documented as of this encounter
--- OUTSIDE RECORDS SUMMARY | 2022-06-15 12:42 | XMS_ITS | Encounter Summary ---
:1945 Author Organization [place] Address [address] [facility] [place] [address] Care Team Providers Name Role Phone Chastity Montero MD Unavailable [phone] Johnnie Alcocer MD Unavailable Danni Marcus RN Unavailable Unavailable Mtm, Ea Complex Unavailable Unavailable Svetlana Osman [facility] Unavailable [phone] Haylie Cheung [facility] Unavailable [phone] Jaiden Holcomb MD Primary Care Provider [phone] Jaiden Holcomb MD Unavailable Kajal Huggins MD Unavailable Patience Toussaint NP Unavailable Brook Sánchez MD Unavailable Reason for Visit Reason Onset Date Comments Pt. Information/instruction 09/03/2021 download Encounter Details Date Type Department Care Team Description 09/03/2021 Telephone [facility] jennifer Kidd MD [address] [place] [id number] [facility] Information/instruction [address] [address] (download) [place] [address] [place] [address] [place] [address] (Work) [phone] Social History Tobacco Use Types Packs/Day Years [...] been in contact with No / Unsure 09/01/2021 10:54 AM JAVA DEVELOPMENT MANAGER someone who was confirmed or suspected to have Coronavirus / COVID-19? documented as of this encounter Miscellaneous Notes Telephone Encounter - Maren Hook MA - 09/03/2021 3:29 PM CST Phone call made to patient for manual download. Patient informed download needed prior to appointment. Patient states she is avoiding having to go places. [facility] contact number send via Dropmysite. ABBI Boyle [facility] DEVELOPMENT MANAGER documented in this encounter Plan of Treatment Upcoming Encounters Date Type Specialty Care Team Description 11/15/2022 Virtual Visit Haylie Wakefield, [facility] [address] [facility] [place] [address] (Wo rk) 11/15/2022 Virtual Visit IM/PedYane Muir MD [address] [facility] [place] [address] (Wo rk) 03/03/2023 Virtual Visit Neurology Erlinda Barber MD 420 [facility] 295 [place], [place] [address] (Wo rk) documented as of this encounter Visit Diagnoses Not on filedocumented in this encounter Additional Health Concerns Assessment Noted Time PHQ-9 Depression Total Score: 4 04/12/2019 7:03 AM CDT documented as of this encounter Care Teams Lab Courier Relationship Specialty Start Date End Date Jaiden Holcomb PCP - General Internal Medicine 02/13/2010/03 MD Jayesh [address] [facility] [address] [place] [id number] Chastity Montero MD Dermatology 09/23/14 MD Martha 420 [facility] 98 [place], [place] [address] Johnnie Alcocer MD Surgeon General Surgery 03/23/[address] [place], [place] [address] Danni Marcus, CHANDLER Personal Advocate & 01/09/1901/17 Liaison (PAL) Fernando, Ea Complex 04/23/19 Svetlana Osman Pharmacist Pharmacotherapy 04/23/19 Era, [facility] [address] [place] [id number] Haylie Cheung, Pharmacist Pharmacist 09/11/19 [facility] [address] [place] [address] Jaiden Holcomb Assigned PCP 05/24/20 MD Jayesh 9[address] [place], [place] [address] aKjal Huggins, Assigned Neuroscience 01/29/21 10/23/21 MD Provider [address] [facility] [address] [place] [address] Patience Toussaint NP Assigned Surgical 01/29/21 02/11/22 2945 [facility] Provider [address] [place], [place] [id number] Brook Sánchez MD Assigned Infectious 07/04/21 909 [facility] [place] [address] documented as of this encounter
--- OUTSIDE RECORDS SUMMARY | 2022-06-15 12:42 | XMS_ITS | Encounter Summary ---
:1945 Author Organization [place] Address [address] [place] [address] Care Team Providers Name Role Phone Chastity Montero MD Unavailable [phone] Johnnie Alcocer MD Unavailable Danni Marcus RN Unavailable Unavailable Mtm, Ea Complex Unavailable Unavailable Svetlana Osman [facility] Unavailable [phone] Haylie Cheung [facility] Unavailable [phone] Jaiden Holcomb MD Primary Care Provider Jaiden Holcomb MD Unavailable Kajal Huggins MD Unavailable Patience Toussaint NP Unavailable Brook Sánchez MD Unavailable Reason for Visit Reason Comments CPAP Follow Up Encounter Details Date Type Department Care Team Description 09/21/2021 Virtual Visit [facility] Osmar Kidd MD CEFERINO (obstructive sleep [facility] MARY Barrera apnea) (Primary Dx) [address] [address] [place] [address] [place] [address] (Work) [phone] Social History Tobacco Use Types Packs/Day Years [...] or relatives? How often do you attend buddhism or More than 4 times per year 05/03/2021 mandaeism services? Do you belong to any clubs or No 05/03/2021 organizations such as buddhism groups, unions, fraternal or athletic groups, or [...] with No / Unsure 09/09/2021 9:43 AM DIRECTOR DIGITAL ANALYTICS someone who was confirmed or suspected to have Coronavirus / COVID-19? documented as of this encounter Last Filed Vital Signs Vital Sign Reading Time Taken Comments Blood Pressure 130/70 09/21/2021 11:13 AM DIRECTOR DIGITAL ANALYTICS Pulse - - Temperature - - Respiratory Rate - - Oxygen Saturation - - Inhaled Oxygen Concentration - - Weight 163.3 kg (360 lb) 09/21/2021 11:13 AM DIRECTOR DIGITAL ANALYTICS Height 170.2 cm (5' 7) 09/21/2021 11:13 AM DIRECTOR DIGITAL ANALYTICS Body Mass Index 56.38 09/21/2021 11:13 AM DIRECTOR DIGITAL ANALYTICS documented in this encounter Patient Instructions Patient InstructionsOsmar Kidd MD - 09/21/2021 11:30 AM CST Your Body mass index is 56.38 kg/m??. Weight management is a personal decision. If you are interested in exploring weight loss strategies,the following discussion covers the approaches that may be successful. Body mass index (BMI) is one way to tell whether you are at a healthy weight, overweight, or obese. It measures your weight in relation to your height. A BMI of 18.5 to 24.9 is in the healthy range. A person with a BMI of 25 to 29.9 is considered overweight, and someone with a BMI of 30 or greater is considered obese. More than two-thirds of [place] adults are considered overweight or obese. Being overweight or obese increases the risk for further weight gain. Excess weight may lead to heart disease and diabetes. Creating and following plans for healthy eating and physical activity may help you improve your health. Weight control is part of healthy lifestyle and includes exercise, emotional health, and healthy eating habits. Careful eating habits lifelong are the mainstay of weight control. Though there are significant health benefits from weight loss, long-term weight loss with diet alone may be very difficult to achieve- studies show long-term success with dietary management in less than 10% of people. Attaining a healthy weight may be especially difficult to achieve in those with severe obesity. In some cases, medications, devices and surgical management might be considered. What can you do? If you are overweight or obese and are interested in methods for weight loss, you should discuss this with your provider. ??? Consider reducing daily calorie intake by 500 calories. ??? Keep a food journal. ??? Avoiding skipping meals, consider cutting portions instead. Diet combined with exercise helps maintain muscle while optimizing fat loss. Strength training is particularly important for building and maintaining muscle mass. Exercise helps reduce stress, increaseenergy, and improves fitness. Increasing exercise without diet control, however, may not burn enoughcalories to loose weight. ??? Start walking three days a week 10-20 minutes at a time ??? Work towards walking thirty minutes five days a week ??? Eventually, increase the speed of your walking for 1-2 minutes at time In addition, we recommend that you review healthy lifestyles and methods for weight loss available through the National Institutes of Health patient information sites: http://win.niddk.nih.gov/publications/index.htm And look into health and wellness programs that may be available through your health insurance provider, employer, local community center, or victorino club. [employer] documented in this encounter Progress Notes Osmar Kidd MD - 09/21/2021 11:30 AM CST Charlette is a 76 year old who is being evaluated via a billable video visit. How would you like to obtain your AVS? MyChart If the video visit is dropped, the invitation should be resent by: Text to cell phone: [phone] Will anyone else be joining your video visit? No Video Start Time: 11:25 AM Video-Visit Details Type of service: Video Visit Video End Time:11:39 AM Originating Location (pt. Location): Home Distant Location (provider location): [facility] Platform used for Video Visit: [facility] Obstructive Sleep Apnea - PAP Follow-Up Visit: Chief Complaint Patient presents with ??? CPAP Follow Up Charlette Brush comes in today for follow-up of their severe sleep apnea, managed with CPAP. Patient was initially diagnosed with sleep apnea in 2003 and has been on successful CPAP therapy since then. Last sleep study was 12/08/2011 at weight of 400 lbs, and she was noted to have an apnea-hypopnea index of 45.6 per hour, and RDI of 74.8 per hour. The lowest oxygen saturation was 85%. There was no evidence of hypoventilation on the sleep study. Overall, she rates the experience with PAP as good. The mask is comfortable. The mask is not leaking. She is not snoring with the mask on. She is not having gasp arousals. She is not having significantoral/nasal dryness. The pressure settings are comfortable. She uses nasal mask. Bedtime is typically 10:30 PM. Usually it takes about 10 minutes to fall asleep with the mask on. Wake time is typically 7 AM. Patient is using PAP therapy 8 hours per night. The patient is usually getting 8 hours of sleep per night. She does feel rested in the morning. Total score - Mcclave: 1 (09/19/2021 1:06 PM) ResMed CPAP 11 cmH2O download: total days of use. 0 nonuse days. 100% days with >4 hours use. Average use 7 hours 47 minutes per day. Median Leak 0 L/min. 95%ile Leak 7.4 L/min. AHI 0.2. Reviewed by team: Tobacco Allergies Meds Reviewed by provider: BP 130/70 Ht 1.702 m (5' 7) Wt (!) 163.3 kg (360 lb) BMI 56.38 kg/m?? Impression/Plan: Severe sleep apnea. - Tolerating PAP well. Daytime symptoms are stable. - I reviewed download data and graphs from her device for last 30 days. Regular compliance and normal residual AHI is noted, confirming adequate treatment, Plan: - Continue auto PAP therapy Charlette Brush will follow up in about 1 year(s). I spent a total of 21 minutes for this appointment on this date of service which include time spent before, during and after the visit for chart review, patient care, counseling and coordination of care. Osmar Kidd MD CC: Jaiden Holcomb, [employer] documented in this encounter Nursing Notes Nadya Fischer - 09/21/2021 11:30 AM CST Flu shot at [facility] 2020 [employer] Becky Madrigal - 09/21/2021 11:30 AM CST One year appointment reminder will be sent out. [employer] documented in this encounter Plan of Treatment Upcoming Encounters Date Type Specialty Care Team Description 11/15/2022 Virtual Visit Pharm Haylie Gonzalez, [facility] 1440 [facility] [place] [phone] (Wo winter) 11/15/2022 Virtual Visit [place] [address] [place] [address] [place] [phone] (Wo rk) 03/03/2023 Virtual Visit Neurology Erlinda Barber MD 420 [facility] 295 [place], [place] [address] (Wo winter) documented as of this encounter Visit Diagnoses Diagnosis CEFERINO (obstructive sleep apnea) - Primary Obstructive sleep apnea (adult) (pediatr ic) documented in this encounter Additional Health Concerns Assessment Noted Time PHQ-9 Depression Total Score: 4 04/12/2019 7:03 AM CDT documented as of this encounter Care Teams Histologist Technologist Relationship Specialty Start Date End Date Jaiden Holcomb PCP - General Internal Medicine 02/13/2010/03 MD Jayesh [address] [address] [place] [id number] Chastity Montero MD Dermatology 09/23/14 MD Martha 420 [facility] 98 [place], [place] [address] Johnnie Alcocer MD Surgeon General Surgery 03/23/17 [address] [facility] 300 [place], [place] [id number] Danni Marcus, CHANDLER Personal Advocate & 01/09/1901/17 Liaison (PAL) Fernando, Ea Complex 04/23/19 Svetlana Osman Pharmacist Pharmacotherapy 04/23/19 Era, [facility] [address] [place], [place] [id number] Haylie Cheung, Pharmacist Pharmacist 09/11/19 [facility] [address] [place], [place] [id number] Jaiden Holcomb Assigned PCP 05/24/20 MD Jayesh [address] [place] [id number] Kajal Huggins, Assigned Neuroscience 01/29/21 10/23/21 MD Provider [address] [place] [address] [address] [place] [address] Patience Toussaint, VIANEY Assigned Surgical 01/29/21 02/11/[address] [place] [address] Provider [address], [place] [phone] Brook Sánchez MD Assigned Infectious 07/04/[address] [place] [address] Disease Provider [place], [place] [address] documented as of this encounter
--- OUTSIDE RECORDS SUMMARY | 2022-06-15 12:42 | XMS_ITS | Encounter Summary ---
:1945 Author Organization [place] Address [address] [place] [address] Care Team Providers Name Role Phone Chastity Montero MD Unavailable [phone] Johnnie Alcocer MD Unavailable Danni Marcus RN Unavailable Unavailable Mtm, Ea Complex Unavailable Unavailable Svetlana Osman [facility] Unavailable [phone] Haylie Cheung [facility] Unavailable [phone] Jaiden Holcomb MD Primary Care Provider Jaiden Holcomb MD Unavailable [phone] Kajal Huggins MD Unavailable Patience Toussaint NP Unavailable Brook Sánchez MD Unavailable Osmar Kidd MD Unavailable Encounter Details Date Type Department Care Team Description 10/03/2021 [facility] Only [facility] Jaiden Holcomb Iron deficiency [facility] Yarelis Mcconnell MD anemia, unspecified [address] [place] 909 [facility] iron deficiency anemia [place], [place] type (Primary Dx) [address] [address] [place] [address] Social History Tobacco Use [...] / COVID-19? documented as of this encounter Plan of Treatment Upcoming Encounters Date Type Specialty Care Team Description 11/15/2022 Virtual Visit Pharm Haylie Gonzalez, [facility] [address] [facility] [place] [address] (Wo rk) 11/15/2022 Virtual Visit [place] [address] [place] [address] [place] [address] (Wo winter) 03/03/2023 Virtual Visit Neurology Erlinda Barber MD 420 [facility] 295 [place], [place] [address] (Wo rk) documented as of this encounter Results Iron and iron binding capacity FUTURE 2mo (10/01/2021 12:05 PM CDT) athologist Signature Iron 71 35 - 180 10/04/2021 [facility] ug/dL 10:56 AM CDT Iron Binding 360 240 - 430 10/04/2021 [facility] Capacity ug/dL 10:56 AM CDT Iron Sat Index 20 15 - 46 % 10/04/2021 [facility] 10:56 AM CDT Specimen Anatomical Collection Method / Collection Time Recei yudy Time (Source) Location / Volume Laterality Blood STRUCTURE OF LEFT Venipuncture / 10/01/2021 12:05 09/14 UPPER LIMB / Unknown PM CDT 12:05 PM CDT Unknown Jaiden Holcomb MD LAB - BLOOD ORDERABLES Performing Organization Address City/State/ZIP Code Phon e Number [facility] [place], [place] [phone] [facility] [id number] [place] [address] Lab (no room number, 1st floor of clinic) [facility] [place], [place] [phone] [facility] [id number] [address] Lab (no room number, 1st floor of clinic) Ferritin (10/01/2021 12:05 PM CDT) athologist Signature Ferritin 41 8 - 252 10/04/2021 [facility] ng/mL 1:21 PM CDT Specimen Anatomical Collection Method / Collection Time Recei yudy Time (Source) Location / Volume Laterality Blood STRUCTURE OF LEFT Venipuncture / 10/01/2021 12:05 09/14 UPPER LIMB / Unknown PM CDT 12:05 PM CDT Unknown Jaiden Holcomb MD LAB - BLOOD ORDERABLES Performing Organization Address City/State/ZIP Code Phon e Number [facility] [place] [address] Lab 500 [facility] J Building, Room 3-580 documented in this encounter Visit Diagnoses Diagnosis Iron deficiency anemia, unspecified iron deficiency anemia type - Primary documented in this encounter Additional Health Concerns Assessment Noted Time PHQ-9 Depression Total Score: 4 04/12/2019 7:03 AM CDT documented as of this encounter Care Teams Robotics Technologist Relationship Specialty Start Date End Date Jaiden Holcomb PCP - General Internal Medicine 02/13/2010/03 MD Jayesh [address] [facility] [address] [place] [phone] Chastity Montero MD Dermatology 09/23/14 MD Martha 420 [facility] 98 [place] [address] Johnnie Alcocer MD Surgeon General Surgery 03/23/[address] [place], [place] [address] Danni Marcus, CHANDLER Personal Advocate & 01/09/1901/17 Liaison (PAL) Kyle King Complex 04/23/19 Svetlana Osman Pharmacist Pharmacotherapy 04/23/19 Era, [facility] [address] [facility] [place] [address] Haylie Cheung, Pharmacist Pharmacist 09/11/19 [facility] [address] [facility] [place] [address] Jaiden Holcomb Assigned PCP 05/24/20 MD Jayesh [address] [place] [id number] Kajal Huggins, Assigned Neuroscience 01/29/21 10/23/21 MD Provider [address] [place] [address] [address] [place] [address] Patience Toussaint NP Assigned Surgical 01/29/21 02/11/22 [address] [facility] Provider [address] [place], [place] [phone] Brook Sánchez MD Assigned Infectious 07/04/[address] [place] [address] SE Disease Provider [place], [place] [phone] Osmar Kidd MD Assigned Sleep Provider 09/26/21 6[address] MARY Bar[address]ESSI [address] [place] [address] documented as of this encounter
--- OUTSIDE RECORDS SUMMARY | 2022-06-15 12:42 | XMS_ITS | Encounter Summary ---
:1945 Author Organization [place] Address [address] [place] [address] Care Team Providers Name Role Phone Chastity Montero MD Unavailable [phone] Johnnie Alcocer MD Unavailable Danni Marcus RN Unavailable Unavailable Mtm, Ea Complex Unavailable Unavailable Svetlana Osman [facility] Unavailable [phone] Haylie Cheung [facility] Unavailable [phone] Jaiden Holcomb MD Primary Care Provider Jaiden Holcomb MD Unavailable Kajal Huggins MD Unavailable Patience Toussaint NP Unavailable Brook Sánchez MD Unavailable Encounter Details Date Type Department Care Team Description 09/10/2021 Anticoagulation Therapy [facility] Zhang, 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 embolism (Primary Dx); Visit Clinic Yarelis Hwang [facility] current use of ant icoagulant therapy; [address] MD Jayesh Paroxysmal atrial fibrillation (H) [address] 909 [facility] 200 [facility] [address] Social History Tobacco Use Types Packs/Day [...] or relatives? How often do you attend pres[employer]ian or More than 4 times per year 05/03/2021 [employer] services? Do you belong to any clubs or No 05/03/2021 organizations such as presybeterian groups, unions, fraternal or athletic groups, or [...] with No / Unsure 09/09/2021 9:43 AM PAD TUFTER someone who was confirmed or suspected to have Coronavirus / COVID-19? documented as of this encounter Progress Notes Svetlana Katz RN - 09/10/2021 12:31 PM CST ANTICOAGULATION MANAGEMENT Charlette Brush 76 year old female is on warfarin with supratherapeutic INR result. (Goal INR 2.0-3.0) Recent labs: (last 7 days) 09/10/21 1231 INR 3.2* ASSESSMENT Source(s): Chart Review, Patient/Caregiver Call and Home Care/Facility Nurse ??? Warfarin doses taken: Warfarin taken as instructed ??? Diet: Decreased greens/vitamin K in diet; plans to resume previous intake ??? New illness, injury, or hospitalization: No--office visit notes from 09/01 wound is stable; no changes from eye appt. Yesterday 09/09 ??? Medication/supplement changes: None noted ??? Signs or symptoms of bleeding or clotting: No ??? Previous INR: Therapeutic last 2(+) visits ??? Additional findings: None PLAN Recommended plan for temporary change(s) affecting INR Dosing Instructions: Continue your current warfarin dose with next INR in 1 week Summary As of 09/10/2021 Full warfarin instructions: 10 mg every day Next INR check: Telephone call with Charlette and Homecare nurse, Galdino [phone] who verbalizes understanding and agrees to plan and who agrees to plan and repeated back plan correctly Orders given to Homecare nurse/facility to recheck Education provided: Please call back if any changes to your diet, medications or how you've been taking warfarin and Contact [phone] with any changes, questions or concerns. 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 [address] [facility] [address] (Wo rk) 11/15/2022 Virtual Visit IM/Yane Mathias MD [address] [facility] [place] [address] (Wo rk) 03/03/2023 Virtual Visit Neurology Erlinda Barber MD 420 [facility] 295 [place], [place] [address] (Wo rk) documented as of this encounter Procedures Procedure Name Priority Date/Time Associated Diagnosis Comme nts INR (EXTERNAL Routine 09/10/2021 12:31 PM Results for this RESULT) PAD TUFTER procedure are i n the results section. documented in this encounter Results (ABNORMAL) INR (External Result) (09/10/2021 12:31 PM PAD TUFTER) P athologist Signature INR (External) 3.2 (A) 2 - 3 EXTERNAL LAB Specimen (Source) Anatomical Collection Method Collection Time Re ceived Time Location / / Volume Laterality Blood 09/10/2021 12:31 PM PAD TUFTER Resulting Agency Comment Home care Patient Reported LAB - HIM EXTERNAL RESULT Performing Organization Address City/State/ZIP Code Phon e Number EXTERNAL LAB EXTERNAL LAB External Lab documented in this encounter Visit Diagnoses Diagnosis 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 embolism - Primary 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 Paroxysmal atrial fibrillation (H) Atrial fibrillation documented in this encounter Additional Health Concerns Assessment Noted Time PHQ-9 Depression Total Score: 4 04/12/2019 7:03 AM CDT documented as of this encounter Care Teams Catshovel Driver Relationship Specialty Start Date End Date Jaiden Holcomb PCP - General Internal Medicine 02/13/2010/03 MD Jayesh [address] [place] [address] [place] [address] Chastity Montero MD Dermatology 09/23/14 MD Martha 420 [facility] 98 [place], [place] [address] Johnnie Alcocer MD Surgeon General Surgery 03/23/[address] [place], [place] [address] Danni Marcus, CHANDLER Personal Advocate & 01/09/1901/17 Liaison (PAL) Fernando, Ea Complex 04/23/19 Svetlana Osman Pharmacist Pharmacotherapy 04/23/19 Era, [facility] [address] [facility] [place] [address] Haylie Cheung, Pharmacist Pharmacist 09/11/19 [facility] [address] [facility] [address] Jaiden Holcomb Assigned PCP 05/24/20 MD Jayesh [address] [place] [address] Kajal Huggins, Assigned Neuroscience 01/29/21 10/23/21 MD Provider [address] [place] [address] [address] [place] [address] Patience Toussaint NP Assigned Surgical 01/29/21 02/11/[address] [place] [address] Provider [address] [place] [address] Brook Sánchez MD Assigned Infectious 07/04/[address] [place] [address] SE Disease Provider [place], [place] [address] documented as of this encounter
--- OUTSIDE RECORDS SUMMARY | 2022-06-15 12:42 | XMS_ITS | Encounter Summary ---
:1945 Author Organization [place] Address [address] [place] [address] Care Team Providers Name Role Phone Chastity Montero MD Unavailable [phone] Johnnie Alcocer MD Unavailable Danni Marcus RN Unavailable Unavailable Mtm, Ea Complex Unavailable Unavailable Svetlana Osman [facility] Unavailable [phone] Haylie Cheung [facility] Unavailable [phone] Jaiden Holcomb MD Primary Care Provider [phone] Jaiden Holcomb MD Unavailable [phone] Kajal Huggins MD Unavailable Patience Toussaint NP Unavailable Brook Sánchez MD Unavailable Osmar Kidd MD Unavailable Encounter Details Date Type Department Care Team Description 10/01/2021 Travel Social History Tobacco Use Types Packs/Day [...] More than 4 times per year 05/03/2021 caodaism services? Do you belong to any clubs [...] Gonzalez, [facility] [address] [facility] [place] [id number] (Wo rk) 11/15/2022 Virtual Visit [place] [address] [place] [address] [place] [id number] (Wo rk) 03/03/2023 Virtual Visit Neurology Erlinda Barber MD [address] [id number] (Wo rk) documented as of this encounter Visit Diagnoses Not on filedocumented in this encounter Additional Health Concerns Assessment Noted Time PHQ-9 Depression Total Score: 4 04/12/2019 7:03 AM CDT documented as of this encounter Care Teams Wash Crew Person Relationship Specialty Start Date End Date Jaiden Holcomb PCP - General Internal Medicine 02/13/2010/03 MD Jayesh [address] [facility] [place] [id number] Chastity Montero MD Dermatology 09/23/14 MD Martha [address] [facility] [address] [facility] [address] [place] [address] Johnnie Alcocer MD Surgeon General Surgery 03/23/[address] [place] [address] Danni Marcus, CHANDLER Personal Advocate & 01/09/1901/17 Liaison (PAL) Fernando, Ea Complex 04/23/19 Svetlana Osman Pharmacist Pharmacotherapy 04/23/19 Era, [facility] [address] [facility] [place] [address] Haylie Cheung, Pharmacist Pharmacist 09/11/19 [facility] [address] [facility] [address] [place], [place] [phone] Jaiden Holcomb Assigned PCP 05/24/20 MD Jayesh [address] [place] [address] [id number] Kajal Huggins, Assigned Neuroscience 01/29/21 10/23/21 MD Provider [address] [place] [address] [address] [place], [place] [phone] Patience Toussaint NP Assigned Surgical 01/29/21 02/11/22 [address] [facility] Provider [address] [place], [place] [phone] Brook Sánchez MD Assigned Infectious 07/04/[address] [place] [address] Disease Provider [place], [place] [address] Osmar Kidd MD Assigned Sleep Provider 09/26/21 [address] [place] [address] documented as of this encounter
--- OUTSIDE RECORDS SUMMARY | 2022-06-15 12:42 | XMS_ITS | Encounter Summary ---
:1945 Author Organization [place] Address [address] [facility] [place] [address] Care Team Providers Name Role Phone Chastity Montero MD Unavailable [phone] Johnnie Alcocer MD Unavailable Danni Marcus RN Unavailable Unavailable Mtm, Ea Complex Unavailable Unavailable Svetlana Osman [facility] Unavailable [phone] Haylie Cheung [facility] Unavailable [phone] Jaiden Holcomb MD Primary Care Provider Jaiden Holcomb MD Unavailable [phone] Kajal Huggins MD Unavailable Patience Toussaint NP Unavailable Brook Sánchez MD Unavailable Encounter Details Date Type Department Care Team Description 08/19/2021 Anticoagulation [facility] Ruben Wagner history of pulmonary embolism (Primary Dx); Therapy Visit Anticoagulation Clin seth Petersen RN 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 designer current use of ant icoagulant therapy; [address] Paroxysmal atrial fibrillati on (H) [place] [address] Social History Tobacco Use Types [...] or relatives? How often do you attend christian or More than 4 times per year 05/03/2021 taoist services? Do you belong to any clubs or No 05/03/2021 organizations such as christian groups, unions, fraternal or athletic groups, or [...] been in contact with No / Unsure 07/20/2021 1:50 PM GOVERNMENT GUARD someone who was confirmed or suspected to have Coronavirus / COVID-19? documented as of this encounter Progress Notes Nicola Wagner RN - 08/19/2021 1:48 PM CST ANTICOAGULATION MANAGEMENT Charlette Stilesseveninthin 76 year old female is on warfarin with therapeutic INR result. (Goal INR 2.0-3.0) Recent labs: (last 7 days) 08/19/21 1348 INR 2.3* ASSESSMENT Source(s): Chart Review and Home Care/Facility Nurse [...] INR in 3 weeks Summary As of 08/19/2021 Full warfarin instructions: 10 mg every day Next INR check: 09/09/2021 Telephone call with home care nurse Galdino who verbalizes understanding and agrees to plan Orders given to Homecare nurse/facility to recheck Education provided: Goal range and significance of current result Plan made per [facility] anticoagulation protocol Nicola Wagner RN Anticoagulation Clinic 08/19/2021 Anticoagulation Episode Summary Current INR goal: 2.0-3.0 TTR: 75.1 % (1 y) Target end date: Indefinite Send INR reminders to: [facility] Indications 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] halfway current use of 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 [Z79.01] Paroxysmal atrial fibrillation (H) [I48.0] Comments: Anticoagulation Care Providers Provider Role Specialty Phone number Galdino Valdez MD Referring Family Medicine [phone] Jaiden Holcomb MD Referring Internal Medicine [phone] Lucero Stevenson MD Responsible Internal Medicine [phone] RNMENT GUARD documented in this encounter Plan of Treatment Upcoming Encounters Date Type Specialty Care Team Description 11/15/2022 Virtual Visit Pharm Haylie Gonzalez, [facility] [address] [facility] [place] [address] (Lena max) 11/15/2022 Virtual [place] [address] [place] [address] [place] [address] (Lena max) 03/03/2023 Virtual Visit Neurology Erlinda Barber MD [address] [facility] 295 [place] [address] (Lena max) documented as of this encounter Procedures Procedure Name Priority Date/Time Associated Diagnosis Comme nts INR (EXTERNAL Routine 08/19/2021 1:48 PM Results for this RESULT) GOVERNMENT GUARD procedure are i n the results section. documented in this encounter Results (ABNORMAL) INR (External Result) (08/19/2021 1:48 PM GOVERNMENT GUARD) P athologist Signature INR (External) 2.3 (A) 0.9 - 1.1 EXTERNAL LAB Specimen (Source) Anatomical Collection Method Collection Time Re ceived Time Location / / Volume Laterality Blood 08/19/2021 1:48 PM GOVERNMENT GUARD Resulting Agency Comment Home care Patient Reported LAB - HIM EXTERNAL RESULT Performing Organization Address City/State/ZIP Code Phon e Number EXTERNAL LAB EXTERNAL LAB External Lab documented in this encounter Visit Diagnoses Diagnosis 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 embolism - Primary 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 designer current use of anticoagulant t herapy Paroxysmal atrial fibrillation (H) Atrial fibrillation documented in this encounter Additional Health Concerns Assessment Noted Time PHQ-9 Depression Total Score: 4 04/12/2019 7:03 AM CDT documented as of this encounter Care Teams Rn Pediatric Relationship Specialty Start Date End Date Jaiden Holcomb PCP - General Internal Medicine 02/13/2010/03 MD Jayesh [address] [place] [address] [place], [place] [phone] Chastity Montero MD Dermatology 09/23/14 MD Martha [address] [facility] 98 [place], [place] [phone] Johnnie Alcocer MD Surgeon General Surgery 03/23/17 [address] [facility] 300 [place] [address] Danni Marcus, CHANDLER Personal Advocate & 01/09/1901/17 Liaison (PAL) Fernando, Ea Complex 04/23/19 Svetlana Osman Pharmacist Pharmacotherapy 04/23/19 Era, [facility] [address] [place] [address] Haylie Cheung, Pharmacist Pharmacist 09/11/19 [facility] [address] [place] [address] Jaiden Holcomb Assigned PCP 05/24/20 MD Jayehs 909 [place] [address] Kajal Huggins, Assigned Neuroscience 01/29/21 10/23/21 MD Provider [address] [facility] [address] [place] [address] Patience Toussaint NP Assigned Surgical 01/29/21 02/11/22 [address] [facility] Provider [address] [place] [address] Brook Sánchez MD Assigned Infectious 07/04/21 [address] [facility] [place] [address] documented as of this encounter
--- OUTSIDE RECORDS SUMMARY | 2022-06-15 12:42 | XMS_ITS | Encounter Summary ---
:1945 Author Organization [place] Address [facility] [place] [address] Care Team Providers Name Role Phone Chastity Montero MD Unavailable [phone] Johnnie Alcocer MD Unavailable Danni Marcus RN Unavailable Unavailable Mtm, Ea Complex Unavailable Unavailable Svetlana Osman [facility] Unavailable [phone] Haylie Cheung [facility] Unavailable [phone] Jaiden Holcomb MD Primary Care Provider [phone] Jaiden Holcomb MD Unavailable [phone] Kajal Huggins MD Unavailable Patience Toussaint NP Unavailable Brook Sánchez MD Unavailable Yane Barraza MD Primary Care Provider Osmar Kidd MD Unavailable Encounter Details Date Type Department Care Team Description 09/22/[address] [facility] [employer] [facility] Health Info Mgmt Non-Provider Srvcs [address] [facility] [place] [address] Social History Tobacco Use [...] or relatives? How often do you attend orthodox or More than 4 times per year 05/03/2021 temple services? Do you belong to any clubs or No 05/03/2021 organizations such as orthodox groups, unions, [employer] or athletic groups, or school groups? How [...] Haylie Gonzalez, [facility] [address] [facility] [place] [address] (Wo rk) 11/15/2022 Virtual Visit IM/Peds Yane Barraza MD [address] [facility] [place] [address] (Wo rk) 03/03/2023 Virtual Visit Neurology Erlinda Barber MD 420 [facility] 295 [place], [place] [address] (Wo rk) documented as of this encounter Visit Diagnoses Not on filedocumented in this encounter Additional Health Concerns Assessment Noted Time PHQ-9 Depression Total Score: 4 04/12/2019 7:03 AM CDT documented as of this encounter Care Teams Hand Engraver Relationship Specialty Start Date End Date Jaiden Holcomb PCP - General Internal Medicine 02/13/2010/03 MD Jayesh [address] [facility] [address] [place], [place] [phone] Yane Barraza MD PCP - General Internal Medicine 10/04/21 12/07/21 [address] [facility] [address] [place], [place] [phone] Chastity Montero MD Dermatology 09/23/14 MD Martha 420 [facility] 98 [place], [place] [address] Johnnie Alcocer MD Surgeon General Surgery 03/23/17 [address] [facility] [address] [place], [place] [address] Danni Marcus, CHANDLER Personal Advocate & 01/09/1901/17 Liaison (PAL) Fernando, Ea Complex 04/23/19 Svetlana Osman Pharmacist Pharmacotherapy 04/23/19 Era, [facility] [address] [place] [address] Haylie Cheung, Pharmacist Pharmacist 09/11/19 [facility] [address] [facility] [address] [place], [place] [phone] Jaiden Holcomb Assigned PCP 05/24/20 MD Jayesh [address] [place] [id number] Kajal Huggins, Assigned Neuroscience 01/29/21 10/23/21 MD Provider [address] [facility] [address] [place], [place] [phone] Patience Toussaint, VIANEY Assigned Surgical 01/29/21 02/11/22 2945 [facility] Provider [address] [place], [place] [phone] Brook Sánchez MD Assigned Infectious 07/04/21 [address] [facility] SE Disease Provider [place], [place] [address] Osmar Kidd MD Assigned Sleep Provider 09/26/21 [address] [place] [address] documented as of this encounter
--- OUTSIDE RECORDS SUMMARY | 2022-06-15 12:42 | XMS_ITS | Encounter Summary ---
:1945 Author Organization [place] Address [address] [place] [address] Care Team Providers Name Role Phone Chastity Montero MD Unavailable [phone] Johnnie Alcocer MD Unavailable Danni Marcus RN Unavailable Unavailable Mtm, Ea Complex Unavailable Unavailable Svetlana Osman [facility] Unavailable [phone] Haylie Cheung [facility] Unavailable [phone] Jaiden Holcomb MD Primary Care Provider Jaiden Holcomb MD Unavailable [phone] Kajal Huggins MD Unavailable Patience Toussaint NP Unavailable Brook Sánchez MD Unavailable Encounter Details Date Type Department Care Team Description 09/09/2021 Travel Social History Tobacco Use Types Packs/Day [...] with No / Unsure 09/09/2021 9:43 AM SEDIMENT REMEDIATION CONSULTANT someone who was confirmed or suspected to have Coronavirus / COVID-19? documented as of this encounter Plan of Treatment Upcoming Encounters Date Type Specialty Care Team Description 11/15/2022 Virtual Visit Pharm Haylie Gonzalez, [facility] [address] [facility] [place] [phone] (Wo rk) 11/15/2022 Virtual Visit IM/Yane Mathias MD [address] [place] [address] [place] [phone] (Wo rk) 03/03/2023 Virtual Visit Neurology Erlinda Barber MD [address] [place] [address] 295 [place] [address] (Wo rk) documented as of this encounter Visit Diagnoses Not on filedocumented in this encounter Additional Health Concerns Assessment Noted Time PHQ-9 Depression Total Score: 4 04/12/2019 7:03 AM CDT documented as of this encounter Care Teams Health Unit Supervisor Relationship Specialty Start Date End Date Jaiden Holcomb PCP - General Internal Medicine 02/13/2010/03 MD Jayesh [address] [place] [address] [place] [phone] Chastity Montero MD Dermatology 09/23/14 MD Martha 420 [facility] 98 [place] [address] Johnnie Alcocer MD Surgeon General Surgery 03/23/17 [address] [facility] 300 [place], [place] [phone] Danni Marcus, CHANDLER Personal Advocate & 01/09/1901/17 Liaison (PAL) Fernando, Ea Complex 04/23/19 Svetlana Osman Pharmacist Pharmacotherapy 04/23/19 Era, [facility] [address] [place] [address] Haylie Cheung, Pharmacist Pharmacist 09/11/19 [facility] [address] [facility] [address] [place], [place] [phone] Jaiden Holcomb Assigned PCP 05/24/20 MD Jayesh [address] [place] [address] [phone] Kajal Huggins, Assigned Neuroscience 01/29/21 10/23/21 MD Provider [address] [place] [address] [address] [place], [place] [phone] Patience Toussaint NP Assigned Surgical 01/29/21 02/11/[address] [place] [address] Provider [address] [place], [place] [phone] Brook Sánchez MD Assigned Infectious 07/04/[address] [place] [address] SE Disease Provider [place], [place] [address] documented as of this encounter
--- OUTSIDE RECORDS SUMMARY | 2022-06-15 12:42 | XMS_ITS | Encounter Summary ---
:1945 Author Organization [place] Address [address] [place] [address] Care Team Providers Name Role Phone Chastity Montero MD Unavailable [phone] Johnnie Alcocer MD Unavailable Danni Marcus RN Unavailable Unavailable Mtm, Ea Complex Unavailable Unavailable Svetlana Osman [facility] Unavailable [phone] Haylie Cheung [facility] Unavailable [phone] Jaiden Holcomb MD Primary Care Provider [phone] Jaiden Holcomb MD Unavailable [phone] Kajal Huggins MD Unavailable Patience Toussaint NP Unavailable Brook Sánchez MD Unavailable Yane Barraza MD Primary Care Provider Osmar Kidd MD Unavailable Erlinda Barber MD Unavailable Reason for Visit Reason Onset Date Comments Labs 09/17/2021 Encounter Details Date Type Department Care Team Description 09/17/2021 Telephone [facility] Wilbur Holcomb MD [address] [address] [address] [place] [address] [phone] Social History Tobacco Use Types Packs/Day Years [...] or relatives? How often do you attend mormonism or More than 4 times per year 05/03/2021 confucianism services? Do you belong to any clubs or No 05/03/2021 organizations such as mormonism groups, unions, fraternal or athletic groups, or [...] Notes Telephone Encounter - Gisele Reed - 09/23/2021 10:49 AM CST Called spoke with patient, scheduled September 27 at 12pm. Thank you Luis E Carreon Hide Handler - Complex Care Team D PANNER Telephone Encounter - Jaiden Holcomb MD - 09/23/2021 9:37 AM BREAD PANNER I would recommend patient get labs for A1c, CBC, CMP, Vitamin D, Ferritin before our visit on 10/04/21. Jaiden Holcomb MD Internal Medicine [place] [facility] EVAN [place] D PANNER Telephone Encounter - Gisele Reed - 09/17/2021 3:31 PM CST Outgoing call to patient to schedule future visit with Dr. Holcomb on MondayOctober 04 at 2pm for Video. She is wondering if Dr. Holcomb would like any labs prior to this visit? Says keeping an eye on herprotein, lab pertaining to that? Just any labs so we can schedule it before hand. Thank you Luis E Carreon Hide Handler - Complex Care Team D PANNER documented in this encounter Plan of Treatment Upcoming Encounters Date Type Specialty Care Team Description 11/15/2022 Virtual Visit Pharm D Haylie Cheung, [facility] [address] [place], [place] [phone] (Wo rk) 11/15/2022 Virtual Visit [place] [address] [place] [address] [place], [place] [phone] (Wo rk) 03/03/2023 Virtual Visit Neurology Erlinda Barber MD [address] [facility] 295 [place], [place] [phone] (Wo rk) documented as of this encounter Results Hemoglobin A1c (10/01/2021 12:05 PM CDT) P athologist Signature Hemoglobin A1C 5.3 0.0 - 5.6 10/01/2021 [facility] % 12:20 PM CDT Comment: Normal <5.7% Prediabetes 5.7-6.4% ?? Diabetes 6.5% or higher Note: Adopted from ADA consensus guideli dale. Specimen Anatomical Collection Method / Collection Time Recei yudy Time (Source) Location / Volume Laterality Blood STRUCTURE OF LEFT Venipuncture / 10/01/2021 12:05 /02/2022 UPPER LIMB / Unknown PM CDT 12:05 PM CDT Unknown Jaiden Holcomb MD LAB - BLOOD ORDERABLES Performing Organization Address City/State/ZIP Code Phon e Number [facility] [place] [facility] [place] [address] [address] [facility] [address] [facility] [place] [address], [facility] [place] Lab [address] [facility] [address] Vitamin D Deficiency (10/01/2021 12:05 PM CDT) athologist Signature Vitamin D, 56 20 - 75 10/01/2021 [facility] Total ug/L 9:41 PM CDT CORE/PROT/ENDO (25-Hydroxy) Specimen Anatomical Collection Method / Collection Time Recei yudy Time (Source) Location / Volume Laterality Blood STRUCTURE OF LEFT Venipuncture / 10/01/2021 12:05 09/14 UPPER LIMB / Unknown PM CDT 12:05 PM CDT Unknown Narrative [facility] CORE/PROT/ENDO - 10/01/2021 9:41 PM CDT Season, race, dietary intake, and treatment affect the concentration of 58-otcxzmt-Uucattg D. Values may decrease during winter months and in crease during summer months. Values 20- 29 ug/L may indicate Vitamin D insufficiency and values <20 ug/L may indicate Vitamin D deficiency. Vitamin D determination is routinely per formed by an immunoassay specific for 25 hydroxyvitamin D3. ??If an individual is on vitamin D2(ergocalciferol) supplementation, please specify 25 OH vitamin D2 and D3 level determination by LCMSMS test VITD23. Jaiden Holcomb MD LAB - BLOOD ORDERABLES Performing Organization Address City/State/ZIP Code Phon e Number [facility] CORE/PROT/ENDO [facility], [place] [address] Core/Prot/Endo [address] [facility] [address] Building, Room 3-580 Ferritin (10/01/2021 12:05 PM CDT) athologist Signature Ferritin 42 8 - 252 10/02/2021 [facility] ng/mL 10:50 AM CDT Specimen Anatomical Collection Method / Collection Time Recei yudy Time (Source) Location / Volume Laterality Blood STRUCTURE OF LEFT Venipuncture / 10/01/2021 12:09/14 UPPER LIMB / Unknown PM CDT 12:05 PM CDT Unknown Jaiden Holcomb MD LAB - BLOOD ORDERABLES Performing Organization Address City/State/ZIP Code Phon e Number [facility] Clinic - [place], [place] [phone] [place] [facility] [address] Lab (no room number, 1st floor of clinic) [facility] [place], [place] [phone] [facility] [place] [address] [place] [facility] [address] Lab (no room number, 1st floor of clinic) (ABNORMAL) Comprehensive metabolic panel (BMP + Alb, Alk Phos, ALT, AST, Total. Bili, TP) (10/01/2021 12:05 PM CDT) [facility] Method Time Signature Sodium 139 133 - 144 10/02/2021 [facility] mmol/L 10:48 AM CDT Potassium 4.2 3.4 - 5.3 10/02/2021 [facility] mmol/L 10:48 AM CDT Chloride 108 94 - 109 10/02/2021 [facility] mmol/L 10:48 AM CDT Carbon Dioxide 27 20 - 32 10/02/2021 [facility] (CO2) mmol/L 10:48 AM CDT Anion Gap 4 3 - 14 10/02/2021 [facility] mmol/L 10:48 AM CDT Urea Nitrogen 18 7 - 30 10/02/2021 [facility] mg/dL 10:48 AM CDT Creatinine 0.56 0.52 - 10/02/2021 [facility] 1.04 mg/dL 10:48 AM CDT Calcium 9.4 8.5 - 10.1 10/02/2021 [facility] mg/dL 10:48 AM CDT Glucose 100 (H) 70 - 99 10/02/2021 [facility] mg/dL 10:48 AM CDT Alkaline 92 40 - 150 10/02/2021 [facility] Phosphatase U/L 10:48 AM CDT AST 26 0 - 45 U/L 10/02/2021 [facility] 10:48 AM CDT ALT 28 0 - 50 U/L 10/02/2021 [facility] 10:48 AM CDT Protein Total 7.9 6.8 - 8.8 10/02/2021 [facility] g/dL 10:48 AM CDT Albumin 3.3 (L) 3.4 - 5.0 10/02/2021 [facility] g/dL 10:48 AM CDT Bilirubin Total 0.7 0.2 - 1.3 10/02/2021 [facility] mg/dL 10:48 AM CDT GFR Estimate >90 >60 10/02/2021 [facility] mL/min/1.7 10:48 AM CDT 3m2 Comment: Effective July 06, 2021 eGF Rcr in adults is calculated using the 2020 CKD-EPI creatinine equation which includ es age and gender (Angelina et al., NEJ, DOI: 10.1056/ACTQeo0547057) Specimen Anatomical Collection Method / Collection Time Recei yudy Time (Source) Location / Volume Laterality Blood STRUCTURE OF LEFT Venipuncture / 10/01/2021 12:05 03/02/2022 UPPER LIMB / Unknown PM CDT 12:05 PM CDT Unknown Jaiden Holcomb MD LAB - BLOOD ORDERABLES Performing Organization Address [facility]/State/ZIP Code Phon e Number OX LABORATORY [place], [place] [phone] [place] [facility] [address] [place] [address] Lab (no room number, 1st floor of clinic) [facility] [place], [place] [phone] [place] [facility] [address] [place] [address] Lab (no room number, 1st floor of clinic) CBC with platelets (10/01/2021 12:05 PM CDT) P athologist Signature WBC Count 6.1 4.0 - 11.0 10/01/2021 [facility] 10e3/uL 12:19 PM CDT RBC Count 4.84 3.80 - 10/01/2021 [facility] 5.20 12:19 PM CDT 10e6/uL Hemoglobin 15.1 11.7 - 10/01/2021 [facility] 15.7 g/dL 12:19 PM CDT Hematocrit 45.0 35.0 - 10/01/2021 [facility] 47.0 % 12:19 PM CDT MCV 93 78 - 100 10/01/2021 [facility] fL 12:19 PM CDT MCH 31.2 26.5 - 10/01/2021 [facility] 33.0 pg 12:19 PM CDT MCHC 33.6 31.5 - 10/01/2021 [facility] 36.5 g/dL 12:19 PM CDT RDW 13.7 10.0 - 10/01/2021 [facility] 15.0 % 12:19 PM CDT Platelet Count 254 150 - 450 10/01/2021 [facility] 10e3/uL 12:19 PM CDT Specimen Anatomical Collection Method / Collection Time Recei yudy Time (Source) Location / Volume Laterality Blood STRUCTURE OF LEFT Venipuncture / 10/01/2021 12:05 09/14 UPPER LIMB / Unknown PM CDT 12:05 PM CDT Unknown Jaiden Holcomb MD LAB - BLOOD ORDERABLES Performing Organization Address City/State/ZIP Code Phon e Number [facility] - [place] Lab [place] [address] [place] [address] [employer] [address] [facility] [place] [address], [facility] [place] Lab [address] [place] [address] [employer] [address] documented in this encounter Visit Diagnoses Diagnosis Iron deficiency anemia, unspecified iron deficiency anemia type - Primary Vitamin D deficiency Unspecified vitamin D deficiency Hypoalbuminemia 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, stage 4 (H) Prediabetes Other abnormal glucose documented in this encounter Additional Health Concerns Assessment Noted Time PHQ-9 Depression Total Score: 4 04/12/2019 7:03 AM CDT documented as of this encounter Care Teams Financial Service Representative Relationship Specialty Start Date End Date Jaiden Holcomb PCP - General Internal Medicine 02/13/2010/03 MD Jayesh [address] [place] [address] [place] [phone] Yane Barraza MD PCP - General Internal Medicine 10/04/21 12/07/[address] [place] [address] [place] [address] Chastity Montero MD Dermatology 09/23/14 MD Martha [address] [place] [address] [facility] [address] [place] [address] Johnnie Alcocer MD Surgeon General Surgery 03/23/[address] [place] [address] Danni Marcus, [place] Personal Advocate & 01/09/1901/17 Liaison (PAL) Fernando, Ea Complex 04/23/19 Svetlana Osman Pharmacist Pharmacotherapy 04/23/19 Era, [facility] [address] [place] [address] Haylie Cheung, Pharmacist Pharmacist 09/11/19 [facility] [address] [place], [place] [phone] Jaiden Holcomb Assigned PCP 05/24/20 MD Jayesh [address] [place] [address] Kajal Huggins, Assigned Neuroscience 01/29/21 10/23/21 MD Provider [address] [facility] [address] [place], [place] [phone] Patience Toussaint NP Assigned Surgical 01/29/21 02/11/22 2945 [facility] Provider [address] [place], [place] [phone] Brook Sánchez MD Assigned Infectious 07/04/[address] [place] [address] Disease Provider [place], [place] [address] Osmar Kidd MD Assigned Sleep Provider 09/26/21 [address] MARY Barrera YESSI [address] [place] [address] Erlinda Barber MD Assigned Neuroscience 10/24/21 420 [facility] Provider 295 [place] [address] documented as of this encounter
--- OUTSIDE RECORDS SUMMARY | 2022-06-15 12:42 | XMS_ITS | Encounter Summary ---
:1945 Author Organization [place] Address [address] [place] [address] Care Team Providers Name Role Phone Chastity Montero MD Unavailable [phone] Johnnie Alcocer MD Unavailable Danni Marcus RN Unavailable Unavailable Mtm, Ea Complex Unavailable Unavailable Svetlana Osman [facility] Unavailable [phone] Haylie Cheung [facility] Unavailable [phone] Jaiden Holcomb MD Primary Care Provider [phone] Jaiden Holcomb MD Unavailable [phone] Kajal Huggins MD Unavailable Patience Toussaint NP Unavailable Brook Sánchez MD Unavailable Osmar Kidd MD Unavailable Encounter Details Date Type Department Care Team Description 10/01/2021 Lab M [facility] Iro n deficiency anemia, unspecified iron deficiency anemia type; [place] [facility] Hypoalbuminemia; 3[address] [facility] Pr essure injury of left buttock, stage 4 (H); Drive Vitamin D deficiency; [address] Prediabetes [place] [address] Social History Tobacco Use [...] Cheung, [facility] [address] [address] (Wo rk) 11/15/2022 Virtual Visit IM/Peds Yane Barraza MD [address] [facility] [place] [phone] (Wo rk) 03/03/2023 Virtual Visit Neurology Erlinda Barber MD [address] [place] [address] [facility] 295 [place], [place] [address] (Wo rk) documented as of this encounter Procedures Procedure Name Priority Date/Time Associated Comments Diagnosis VITAMIN D DEFICIENCY Routine 10/01/2021 12:05 Vitamin D Res ults for this SCREENING PM CDT deficiency procedure are i n the results section. IRON AND IRON BINDING Add-On 10/01/2021 12:05 Iron deficiency Results for this CAPACITY PM CDT anemia, unspecified procedur e are in iron deficiency the results anemia type section. HEMOGLOBIN A1C Routine 10/01/2021 12:05 Prediabetes Results f or this PM CDT procedure are i n the results section. FERRITIN Add-On 10/01/2021 12:05 Iron deficiency Results for this PM CDT anemia, unspecified procedur e are in iron deficiency the results anemia type section. FERRITIN Routine 10/01/2021 12:05 Iron deficiency Results for this PM CDT anemia, unspecified procedur e are in iron deficiency the results anemia type section. COMPREHENSIVE Routine 10/01/2021 12:05 Hypoalbuminemia Results for this METABOLIC PANEL PM CDT Pressure injury of proced ure are in left buttock, stage the resu lts 4 (H) section. CBC WITH PLATELETS Routine 10/01/2021 12:05 Iron deficiency Re sults for this PM CDT anemia, unspecified procedur e are in iron deficiency the results anemia type section. documented in this encounter Results Ferritin (10/01/2021 12:05 PM CDT) athologist Signature [...] City/State/ZIP Code Phon e Number [facility] [place] [address] [phone] Lab 500 [facility] [address] Building, Room 3-580 Iron and iron binding capacity FUTURE 2mo [...] LAB - BLOOD ORDERABLES Performing Organization Address City/[facility]/ZIP Code Phon e Number OX LABORATORY [facility] Clinic - [place], [place] [phone] [place] [facility] [address] [place] [address] Lab (no room number, 1st floor of clinic) OX LABORATORY [place], [place] [phone] [facility] [place] [address] [place] [facility] [address] Lab (no room number, 1st floor of clinic) Hemoglobin A1c (10/01/2021 12:05 PM CDT) athologist Signature Hemoglobin A1C 5.3 0.0 - [...] City/State/ZIP Code Phon e Number [facility]ORY [facility] [place] [phone] [place] [address] [address] EA [facility] [place] [address], [facility] [place] [facility] [address] [place] [address] [address] Vitamin D Deficiency (10/01/2021 12:05 [...] intake, and treatment affect the concentration of 66-ydvkeby-Nxywmeh D. Values may decrease during winter months [...] Code Phon e Number SPECIALTY CORE/PROT/ENDO [place]ty [place], [place] [address] Core/Prot/Endo 500 [facility] [address] Building, Room 3-580 Ferritin (10/01/2021 12:05 PM CDT) P athologist Signature Ferritin 42 0 - 252 10/02/2021 [facility] ng/mL 10:50 AM CDT Specimen Anatomical Collection Method / Collection Time Recei yudy Time (Source) Location / Volume Laterality Blood STRUCTURE OF LEFT Venipuncture / 10/01/2021 12:05 09/14 UPPER LIMB / Unknown PM CDT 12:05 PM CDT Unknown Jaiden Holcomb MD LAB - BLOOD ORDERABLES Performing Organization Address City/State/ZIP Code Phon e Number OX LABORATORY [facility] - [place], [place] [phone] [place] [facility] [address] [place] [address] Lab (no room number, 1st floor of clinic) OX LABORATORY [place], [place] [phone] [facility] [address], [facility] [place] [facility] [address] Lab (no room number, 1st floor of clinic) (ABNORMAL) Comprehensive metabolic panel (BMP + Alb, Alk Phos, ALT, AST, Total. Bili, TP) (10/01/2021 12:05 PM CDT) [facility] Method Time Signature Sodium 139 133 - [...] equation which includ es age and gender (Green [employer] Marker et al., NEJM, DOI: 10.1056/[id number]) Specimen Anatomical Collection Method / Collection Time Recei yudy Time (Source) Location / Volume Laterality Blood STRUCTURE OF LEFT Venipuncture / 10/01/2021 12:05 03/02/2022 UPPER LIMB / Unknown PM CDT 12:05 PM CDT Unknown Jaiden Holcomb MD LAB - BLOOD ORDERABLES Performing Organization Address City/State/ZIP Code Phon e Number OX LABORATORY [place], [place] [phone] [place] [facility] [address] [place] [address] Lab (no room number, 1st floor of clinic) OX LABORATORY [place], [place] [phone] [facility] [address] [place] [facility] [address] Lab (no room number, 1st floor of clinic) CBC with platelets (10/01/2021 12:05 PM CDT) athologist Signature WBC Count 6.1 4.0 - [...] City/State/ZIP Code Phon e Number [facility]ATORY [facility] [place] [facility] [place] [address] [facility] 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, stage 4 (H) Vitamin D deficiency Unspecified vitamin D deficiency Prediabetes Other abnormal glucose documented in this encounter Additional Health Concerns Assessment Noted Time PHQ-9 Depression Total Score: 4 04/12/2019 7:03 AM CDT documented as of this encounter Care Teams Editing Clerk Relationship Specialty Start Date End Date Jaiden Holcomb PCP - General Internal Medicine 02/13/2010/03 MD Jayesh [address] [place] [address] [place], [place] [phone] Chastity Montero MD Dermatology 09/23/14 MD Martha [address] [place] [address] 98 [place], [place] [address] Johnnie Alcocer MD Surgeon General Surgery 03/23/17 [address] [facility] 300 [place], [place] [phone] Danni Marcus, [place] Personal Advocate & 01/09/1901/17 Liaison (PAL) Kyle [place] Complex 04/23/19 Svetlana Osman Pharmacist Pharmacotherapy 04/23/19 Era, [facility] [address] [place], [place] [phone] Haylie Cheung, Pharmacist Pharmacist 09/11/19 [facility] [address] [place] [phone] Jaiden Holcomb Assigned PCP 05/24/20 MD Jayesh 909 [place], [place] [address] Kajal Huggins, Assigned Neuroscience 01/29/21 10/23/21 MD Provider [address] [facility] [address] [place], [place] [phone] Patience Toussaint NP Assigned Surgical 01/29/21 02/11/22 2945 [facility] Provider [address] [place], [place] [phone] Brook Sánchez MD Assigned Infectious 07/04/21 9[address] [facility] SE Disease Provider [place], [place] [address] Osmar Kidd MD Assigned Sleep Provider 09/26/21 6363 MARY Barrera [facility] 103 [place] [address] documented as of this encounter
--- OUTSIDE RECORDS SUMMARY | 2022-06-15 12:42 | XMS_ITS | Encounter Summary ---
:1945 Author Organization [place] Address [address] [place] [address] Care Team Providers Name Role Phone Chastity Montero MD Unavailable [phone] Johnnie Alcocer MD Unavailable Danni Marcus RN Unavailable Unavailable Mtm, Ea Complex Unavailable Unavailable Svetlana Osman [facility] Unavailable [phone] Haylie Cheung [facility] Unavailable [phone] Jaiden Holcomb MD Primary Care Provider [phone] Jaiden Holcomb MD Unavailable [phone] Kajal Huggins MD Unavailable Patience Toussaint NP Unavailable Brook Sánchez MD Unavailable Encounter Details Date Type Department Care Team Description 08/25/2021 Medical Correspondence [facility] [place], [employer] Health Info Mgmt Non-Provider Srvcs [address] [place] [address] Social History Tobacco Use Types [...] or relatives? How often do you attend jewish or More than 4 times per year 05/03/2021 jew services? Do you belong to any clubs or No 05/03/2021 organizations such as jewish groups, unions, fraMacton Corporation or athletic groups, or school groups? How [...] with No / Unsure 09/09/2021 9:43 AM LABOR CUSTODIAN someone who was confirmed or suspected to have Coronavirus / COVID-19? documented as of this encounter Plan of Treatment Upcoming Encounters Date Type Specialty Care Team Description 11/15/2022 Virtual Visit Pharm Haylie Gonzalez, [facility] [address] [place] [address] [place] [phone] (Wo rk) 11/15/2022 Virtual Visit IM/Yane Mathias MD [address] [place] [address] [place] [phone] (Wo rk) 03/03/2023 Virtual Visit Neurology Erlinda Barber MD [address] [place] [address] 295 [place], [place] [address] (Wo rk) documented as of this encounter Visit Diagnoses Not on filedocumented in this encounter Additional Health Concerns Assessment Noted Time PHQ-9 Depression Total Score: 4 04/12/2019 7:03 AM CDT documented as of this encounter Care Teams Technical Services Consultant Relationship Specialty Start Date End Date Jaiden Holcomb PCP - General Internal Medicine 02/13/2010/03 MD Jayesh [address] [place] [address] [place] [phone] Chastity Montero MD Dermatology 09/23/14 MD Martha [address] [place] [address] [facility] [address] [place], [place] [address] Johnnie Alcocer MD Surgeon General Surgery 03/23/[address] [place], [place] [address] Danni Marcus, [place] Personal Advocate & 01/09/1901/17 Liaison (PAL) Fernando, Ea Complex 04/23/19 Svetlana Osman Pharmacist Pharmacotherapy 04/23/19 Era, [facility] [address] [place] [address] Haylie Cheung, Pharmacist Pharmacist 09/11/19 [facility] [address] [facility] [address] [place], [place] [phone] Jaiden Holcomb Assigned PCP 05/24/20 MD Jayesh [address] [place] [address] Kajal Huggins, Assigned Neuroscience 01/29/21 10/23/21 MD Provider [address] [place] [address] Patience Toussaint NP Assigned Surgical 01/29/21 02/11/[address] [place] [address] Provider [address], [place] [phone] Brook Sánchez MD Assigned Infectious 07/04/[address] [place] [address] Disease Provider [place], [place] [address] documented as of this encounter
--- OUTSIDE RECORDS SUMMARY | 2022-06-15 12:42 | XMS_ITS | Encounter Summary ---
:1945 Author Organization [place] Address [facility]0 [place] [address] Care Team Providers Name Role Phone Chastity Montero MD Unavailable [phone] Johnnie Alcocer MD Unavailable Danni Marcus RN Unavailable Unavailable Mtm, Ea Complex Unavailable Unavailable Svetlana Osman [facility] Unavailable [phone] Haylie Cheung [facility] Unavailable [phone] Jaiden Holcomb MD Primary Care Provider [phone] Jaiden Holcomb MD Unavailable Kajal Huggins MD Unavailable Patience Toussaint NP Unavailable Brook Sánchez MD Unavailable Reason for Visit Reason Comments Sleep Problem Encounter Details Date Type Department Care Team Description 09/24/2021 [facility] Osmar Kidd MD CEFERINO (obstructive sleep [facility] [place] 6363 MARY Barrera apnea) (Primary Dx) [address] [address] [place] [address] [place] [address] (Work) [phone] Social History Tobacco Use Types Packs/Day Years [...] or relatives? How often do you attend episcopalian or More than 4 times per year 05/03/2021 catholic services? Do you belong to any clubs or No 05/03/2021 organizations such as episcopalian groups, unions, fraternal or athletic groups, or [...] with No / Unsure 09/09/2021 9:43 AM BANQUET SERVER someone who was confirmed or suspected to have Coronavirus / COVID-19? documented as of this encounter Plan of Treatment Upcoming Encounters Date Type Specialty Care Team Description 11/15/2022 Virtual Visit Pharm D Haylie Cheung, [facility] [address] [facility] [place] [address] (Wo rk) 11/15/2022 Virtual Visit [place] [address] [place] [address] [place] [id number] (Wo rk) 03/03/2023 Virtual Visit Neurology Erlinda Barber MD [address] [facility] 295 [place] [address] (Wo rk) documented as of this encounter Visit Diagnoses Diagnosis CEFERINO (obstructive sleep apnea) - Primary Obstructive sleep apnea (adult) (pediatr ic) documented in this encounter Additional Health Concerns Assessment Noted Time PHQ-9 Depression Total Score: 4 04/12/2019 7:03 AM CDT documented as of this encounter Care Teams Film Reproducer Relationship Specialty Start Date End Date Jaiden Holcomb PCP - General Internal Medicine 02/13/2010/03 MD Jayesh [address] [place] [address] [address] [place] [id number] Chastity Montero MD Dermatology 09/23/14 MD Martha [address] [facility] 98 [place], [place] [address] Johnnie Alcocer MD Surgeon General Surgery 03/23/[address] [place], [place] [phone] Danni Marcus, CHANDLER Personal Advocate & 01/09/1901/17 Liaison (PAL) Fernando, Ea Complex 04/23/19 Svetlana Osman Pharmacist Pharmacotherapy 04/23/19 Era, [facility] [address] [place], [place] [id number] Haylie Cheung, Pharmacist Pharmacist 09/11/19 [facility] [address] [place] [id number] Jaiden Holcomb Assigned PCP 05/24/20 MD Jayesh [address] [place] [address] Kajal Huggins, Assigned Neuroscience 01/29/21 10/23/[address] [place] [address] [address] [place] [address] Patience Toussaint NP Assigned Surgical 01/29/21 02/11/[address] [place] [address] Provider [address] [place], [place] [phone] Brook Sánchez MD Assigned Infectious 07/04/[address] [place] [address] Disease Provider [place], [place] [address] documented as of this encounter
--- OUTSIDE RECORDS SUMMARY | 2022-06-15 12:42 | XMS_ITS | Encounter Summary ---
:1945 Author Organization [place] Address [address] [place] [address] Care Team Providers Name Role Phone Chastity Montero MD Unavailable [phone] Johnnie Alcocer MD Unavailable Danni Marcus RN Unavailable Unavailable Mtm, Ea Complex Unavailable Unavailable Svetlana Osman [facility] Unavailable [phone] Haylie Cheung [facility] Unavailable [phone] Jaiden Holcomb MD Primary Care Provider [phone] Jaiden Holcomb MD Unavailable Kajal Huggins MD Unavailable Patience Toussaint NP Unavailable Brook Sánchez MD Unavailable Reason for Visit Reason Onset Date Comments Transition of Care 09/23/2021 Encounter Details Date Type Department Care Team Description 09/23/2021 Telephone [facility] Wilbur Holcomb Transition of Care Yarelis Mcconnell MD [address] [address] [address] [place] [address] [phone] Social History Tobacco Use Types Packs/Day Years [...] 05/03/2021 organizations such as pentecostal groups, unions, fraternal or athletic groups, or [...] with No / Unsure 09/09/2021 9:43 AM MACHINE ROUGH ROUNDER someone who was confirmed or suspected to have Coronavirus / COVID-19? documented as of this encounter Miscellaneous Notes Telephone Encounter - Danni Marcus, RN - 09/23/2021 9:25 AM CST Patient called today to notify them that Dr. Holcomb will be transitioning to a new position. Discussed with patient that in [facility] the Complex Care team will continue, but will have a different format. Patient will continue care with the Complex care team at [facility] and will establish care with providerat [facility], who will work in conjunction with an Advanced Practice Practioner, and the [facility] PAL to continue to provide care. Luis E will also remain the 5 coordinator for the complex care team. Patient's previous Legacy PCP was Dr. Stevenson and patient is unable to return to her care because Dr. Stevenson is no longer at the [facility] clinic. Future appointment scheduled for follow-up with Dr. Barraza on January 11 at 1345. Ashli Marcus RN INE ROUGH ROUNDER documented in this encounter Plan of Treatment Upcoming Encounters Date Type Specialty Care Team Description 11/15/2022 Virtual Visit Pharm D Haylie Cheung, [facility] [address] [facility] [place] [address] (Wo rk) 11/15/2022 Virtual Visit [place] [address] [place] [address] [place] [address] (Wo rk) 03/03/2023 Virtual Visit Neurology Erlinda Barber MD [address] [place] [address] 295 [place] [address] (Wo rk) documented as of this encounter Visit Diagnoses Not on filedocumented in this encounter Additional Health Concerns Assessment Noted Time PHQ-9 Depression Total Score: 4 04/12/2019 7:03 AM CDT documented as of this encounter Care Teams Coal Sample Tester Relationship Specialty Start Date End Date Jaiden Holcomb PCP - General Internal Medicine 02/13/2010/03 MD Jayesh [address] [place] [address] [place] [address] Chastity Montero MD Dermatology 09/23/14 MD Martha 420 [facility] 98 [place], [place] [phone] Johnnie Alcocer MD Surgeon General Surgery 03/23/[address] [place], [place] [phone] Danni Marcus, CHANDLER Personal Advocate & 01/09/1901/17 Liaison (PAL) Kyle King Complex 04/23/19 Svetlana Osman Pharmacist Pharmacotherapy 04/23/19 Era [facility] [address] [place] [address] Haylie Cheung, Pharmacist Pharmacist 09/11/19 [facility] [address] [place] [address] Jaiden Holcomb Assigned PCP 05/24/20 MD Jayesh 9 [place], [place] [address] Kajal Huggins, Assigned Neuroscience 01/29/21 10/23/21 MD Provider [address] [facility] [address] [place] [address] Patience Toussaint NP Assigned Surgical 01/29/21 02/11/22 29[address] [facility] Provider [address] [place], [place] [phone] Brook Sánchez MD Assigned Infectious 07/04/[address] [place] [address] SE Disease Provider [place], [place] [address] documented as of this encounter
--- OUTSIDE RECORDS SUMMARY | 2022-06-15 12:42 | XMS_ITS | Encounter Summary ---
:1945 Author Organization [place] Address [address] [place] [address] Care Team Providers Name Role Phone Chastity Montero MD Unavailable [phone] Johnnie Alcocer MD Unavailable Danni Marcus RN Unavailable Unavailable Mtm, Ea Complex Unavailable Unavailable Svetlana Osman [facility] Unavailable [phone] Haylie Cheung [facility] Unavailable [phone] Jaiden Holcomb MD Primary Care Provider [phone] Jaiden Holcomb MD Unavailable [phone] Kajal Huggins MD Unavailable Patience Toussaint NP Unavailable Brook Sánchez MD Unavailable Reason for Visit Reason Comments Annual Eye Exam Encounter Details Date Type Department Care Team Description 09/09/2021 Office Visit [facility] Hayley Germanpi a of both eyes (Primary Dx); Clinic Yarelis Yan OD Pseudophakia; [address] [place] [address] [facility] Dry e ye; [facility] DR Macular degeneration (senile) of retina; [address] [place] [address] 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 Do you belong to any clubs [...] with No / Unsure 09/09/2021 9:43 AM CREMATORY ATTENDANT someone who was confirmed or suspected to have Coronavirus / COVID-19? documented as of this encounter Patient Instructions Patient InstructionsHayley German, OD - 09/09/2021 10:00 AM CREMATORY ATTENDANT Images from the original note were not included. No changes Yearly exam unless noticed vision change to monitor macular degeneration The Age Related Eye Disease Study (AREDS) indicated that high dose anti-oxidant supplementation reduces the progression to advanced disease in patients with moderate to severe disease. It is recommended that you take Preservision AREDS 2 formulation vitamins twice daily. What you can do: Stop smoking, this significantly increases your risk of vision loss Increase physical activity Wear sunglasses Increase leafy greens in your diet especially spinach, and red fruit and vegetables, fish and nuts. There is no evidence that people without AMD should take antioxidants to prevent or delay the onset of this disease. Monitor vision change with an Amsler grid How to use an Amsler Grid Wear the eyeglasses you normally use for reading Position the chart at 14 inches Cover one eye at a time Stare at the dot in the center. Do not let your eye drift from the center dot Return to clinic if: Any of the straight lines appear wavy or bent Any of the boxes differ in size or shape from the others or any of the lines are missing, blurry or discolored. ATORY ATTENDANT documented in this encounter Progress Notes Hayley German, OD - 09/09/2021 10:00 AM CST Chief Complaint Patient presents with ??? Annual Eye Exam Accompanied by teofilo Last Eye Exam: Dilated Previously: Yes, side effects of dilation explained today What are you currently using to see? glasses Distance Vision Acuity: Satisfied with vision Near Vision Acuity: Satisfied with vision while reading and using computer with glasses Eye Comfort: good Do you use eye drops? : Yes: Systane when needed Occupation or Hobbies: Not working Estephanie Adams [facility] CE w/ yag each eye [place] Dry AMD takes generic preservision three times daily Never a smoker Medical, surgical and family histories reviewed and updated 09/09/2021. OBJECTIVE: See Ophthalmology exam ASSESSMENT: ICD-10-CM 1. Myopia of both eyes H52.13 2. Pseudophakia Z96.1 3. Dry eye H04.129 4. Macular degeneration (senile) of retina H35.30 5. 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 PLAN: No prescription change DMV form filled q2y request, patient aware if vision change / decline no driving and return to clinic sooner otherwise yearly Artificial tears as needed Vitamins two times daily does not need three times daily Hayley German OD ATORY ATTENDANT documented in this encounter Plan of Treatment Upcoming Encounters Date Type Specialty Care Team Description 11/15/2022 Virtual Visit Haylie Wakefield, [facility] [address] [facility] [address] [place], [place] [phone] (Wo rk) 11/15/2022 Virtual Visit IM/Peds Yane Barraza MD [address] [facility] [place] [id number] (Wo rk) 03/03/2023 Virtual Visit Neurology Erlinda Barber MD 420 [facility] 295 [place], [place] [phone] (Wo rk) documented as of this encounter Procedures Procedure Name Priority Date/Time Associated Diagnosis Comme nts [place] REFRACTION Routine 09/09/2021 10:53 AM Myopia of brian th eyes CREMATORY ATTENDANT Macular degeneration (senile) of retina EYE EXAM Routine 09/09/2021 10:53 AM Myopia of brian th eyes (SIMPLE-NONBILLABLE) CREMATORY ATTENDANT Macular degeneration (senile) of retina documented in this encounter Visit Diagnoses Diagnosis Myopia of both eyes - Primary Myopia Pseudophakia Lens replaced by other means Dry eye Macular degeneration (senile) of retina Macular degeneration (senile) of retina, unspecified Corneal epithelial basement membrane dys trophy of both eyes documented in this encounter Additional Health Concerns Assessment Noted Time PHQ-9 Depression Total Score: 4 04/12/2019 7:03 AM CDT documented as of this encounter Care Teams Brass Polisher Relationship Specialty Start Date End Date Jaiden Holcomb PCP - General Internal Medicine 02/13/2010/03 MD Jayesh [address] [facility] [address] [place] [phone] Chastity Montero MD Dermatology 09/23/14 MD Martha 420 [facility] 98 [place], [place] [address] Johnnie Alcocer MD Surgeon General Surgery 03/23/[address] [place] [address] Danni Marcus, CHANDLER Personal Advocate & 01/09/1901/17 Liaison (PAL) Fernando, Ea Complex 04/23/19 Svetlana Osman Pharmacist Pharmacotherapy 04/23/19 Era, [facility] [address] [facility] [address] [place] [phone] Haylie Cheung, Pharmacist Pharmacist 09/11/19 [facility] [address] [facility] [place] [phone] Jaiden Holcomb Assigned PCP 05/24/20 MD Jayesh [address] [place] [address] Kajal Huggins, Assigned Neuroscience 01/29/21 10/23/21 MD Provider [address] [place] [address] [address] [place] [address] Patience Toussaint NP Assigned Surgical 01/29/21 02/11/[address] [place] [address] Provider [address] [place] [address] Brook Sánchez MD Assigned Infectious 07/04/[address] [place] [address] [place] [address] documented as of this encounter
--- OUTSIDE RECORDS SUMMARY | 2022-06-15 12:42 | XMS_ITS | Encounter Summary ---
:1945 Author Organization [place] Address [address] [place] [address] Care Team Providers Name Role Phone Chastity Montero MD Unavailable [phone] Johnnie Alcocer MD Unavailable Danni Marcus RN Unavailable Unavailable Mtm, Ea Complex Unavailable Unavailable Svetlana Osman [facility] Unavailable [phone] Haylie Cheung [facility] Unavailable [phone] Jaiden Holcomb MD Primary Care Provider [phone] Jaiden Holcomb MD Unavailable [phone] Kajal Huggins MD Unavailable Patience Toussaint NP Unavailable Brook Sánchez MD Unavailable Encounter Details Date Type Department Care Team Description 09/01/2021 Travel Social History Tobacco Use Types Packs/Day [...] with No / Unsure 09/01/2021 10:54 AM LONE LEAD LINEMAN someone who was confirmed or suspected to have Coronavirus / COVID-19? documented as of this encounter Plan of Treatment Upcoming Encounters Date Type Specialty Care Team Description 11/15/2022 Virtual Visit Pharm Haylie Gonzalez, [facility] [address] [facility] [place] [phone] (Wo rk) 11/15/2022 Virtual Visit IM/Yane Mathias MD [address] [place] [address] [place] [phone] (Wo rk) 03/03/2023 Virtual Visit Neurology Erlinda Barber MD [address] [place] [address] 295 [place] [address] (Wo rk) documented as of this encounter Visit Diagnoses Not on filedocumented in this encounter Additional Health Concerns Assessment Noted Time PHQ-9 Depression Total Score: 4 04/12/2019 7:03 AM CDT documented as of this encounter Care Teams Habilitation Assistant Relationship Specialty Start Date End Date Jaiden Holcomb PCP - General Internal Medicine 02/13/2010/03 MD Jayesh [address] [place] [address] [place] [phone] Chastity Montero MD Dermatology 09/23/14 MD Martha 420 [facility] 98 [place] [address] Johnnie Alcocer MD Surgeon General Surgery 03/23/17 [address] [facility] 300 [place], [place] [phone] Danni Marcus, CHANDLER Personal Advocate & 01/09/1901/17 Liaison (PAL) Fernando, Ea Complex 04/23/19 Svetlana Osmna Pharmacist Pharmacotherapy 04/23/19 Era, [facility] [address] [facility] [address] Haylie Cheung, Pharmacist Pharmacist 09/11/19 [facility] [address] [facility] [address] [place], [place] [phone] Jaiden Holcomb Assigned PCP 05/24/20 MD Jayesh [address] [place] [address] Kajal Huggins, Assigned Neuroscience 01/29/21 10/23/21 MD Provider [address] [place] [address] [address] [place], [place] [phone] Patience Toussaint NP Assigned Surgical 01/29/21 02/11/[address] [place] [address] Provider [address] [place], [place] [phone] Brook Sánchez MD Assigned Infectious 07/04/[address] [place] [address] SE Disease Provider [place], [place] [address] documented as of this encounter
--- OUTSIDE RECORDS SUMMARY | 2022-06-15 12:42 | XMS_ITS | Encounter Summary ---
:1945 Author Organization [place] Address [address] [facility] [place] [address] Care Team Providers Name Role Phone Chastity Montero MD Unavailable [phone] Johnnie Alcocer MD Unavailable Danni Marcus RN Unavailable Unavailable Mtm, Ea Complex Unavailable Unavailable Svetlana Osman [facility] Unavailable [phone] Haylie Cheung [facility] Unavailable [phone] Jaiden Holcomb MD Primary Care Provider [phone] Jaiden Holcomb MD Unavailable [phone] Kajal Huggins MD Unavailable Patience Toussaint NP Unavailable Brook Sánchez MD Unavailable Osmar Kidd MD Unavailable Encounter Details Date Type Department Care Team Description 10/01/2021 Anticoagulation [facility] Ruben Gonzalez history of pulmonary embolism (Primary Dx); Therapy Visit Anticoagulation Clin seth Holt, snf current use of ant icoagulant therapy; [address] RN Paroxysmal atrial fibrillati on (H) [place] [address] Social History Tobacco Use Types [...] encounter Progress Notes Yanet Gonzalez RN - 10/01/2021 1:15 PM CDT ANTICOAGULATION MANAGEMENT Charlette Velma Brush 76 year old female is on warfarin with therapeutic INR result. (Goal INR 2.0-3.0) Recent labs: (last 7 days) 10/01/21 1307 INR 3.1* ASSESSMENT ??? Source(s): Chart Review and Home Care/Facility Nurse ??? Warfarin doses taken: Warfarin taken as instructed ??? Diet: No new diet changes identified ??? New illness, injury, or hospitalization: No ??? Medication/supplement changes: None noted ??? Signs or symptoms of bleeding or clotting: No ??? Previous INR: Therapeutic last visit; previously outside of goal range ??? Additional findings: Patient does have a wound that is taking a long time to heal PLAN Recommended plan for temporary change(s) affecting INR Dosing Instructions: Continue your current warfarin dose with next INR in 2 weeks Summary As of 10/01/2021 Full warfarin instructions: 10 mg every day Next INR check: 10/15/2021 Telephone call with home care nurse Galdino who verbalizes understanding and agrees to plan Orders given to Homecare nurse/facility to recheck Education provided: Please call back if any changes to your diet, medications or how you've been taking warfarin Plan made per [facility] anticoagulation protocol Yanet Gonzalez, RN Anticoagulation Clinic 10/01/2021 Anticoagulation Episode Summary Current INR goal: 2.0-3.0 TTR: 68.0 % (1 y) Target end date: Indefinite Send INR reminders to: [facility] Indications 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] snf current use of 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 [Z79.01] Paroxysmal atrial fibrillation (H) [I48.0] Comments: Anticoagulation Care Providers Provider Role Specialty Phone number Galdino Valdez MD Referring Family Medicine [phone] Jaiden Holcomb MD Referring Internal Medicine [phone] Lucero Stevenson MD Responsible Internal Medicine [phone] documented in this encounter Plan of Treatment Upcoming Encounters Date Type Specialty Care Team Description 11/15/2022 Virtual Visit Pharm Haylie Gonzalez, [facility] [address] [facility] [place] [address] (Lena max) 11/15/2022 Virtual Visit IM/Yane Mathias MD [address] [facility] [place] [address] (Lena max) 03/03/2023 Virtual Visit Neurology Erlinda Barber MD [address] [facility] 295 [place] [address] (Lena max) documented as of this encounter Procedures Procedure Name Priority Date/Time Associated Diagnosis Comme nts INR (EXTERNAL Routine 10/01/2021 1:07 PM Results for this RESULT) CDT procedure are i n the results section. documented in this encounter Results (ABNORMAL) INR (External Result) (10/01/2021 1:07 PM CDT) P athologist Signature INR (External) 3.1 (A) 0.9 - 1.1 EXTERNAL LAB Specimen (Source) Anatomical Collection Method Collection Time Re ceived Time Location / / Volume Laterality Blood 10/01/2021 1:07 PM CDT Resulting Agency Comment [facility] Patient Reported LAB - HIM EXTERNAL RESULT Performing Organization Address City/State/ZIP Code Phon e Number EXTERNAL LAB EXTERNAL LAB External Lab documented in this encounter Visit Diagnoses Diagnosis 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 embolism - 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 use of anticoagulant t herapy Paroxysmal atrial fibrillation (H) Atrial fibrillation documented in this encounter Additional Health Concerns Assessment Noted Time PHQ-9 Depression Total Score: 4 04/12/2019 7:03 AM CDT documented as of this encounter Care Teams Cephalometric Technician Relationship Specialty Start Date End Date Jaiden Holcomb PCP - General Internal Medicine 02/13/2010/03 MD Jayesh [address] [place] [address] [place] [address] Chastity Montero MD Dermatology 09/23/14 MD Martha [address] [facility] 98 [place], [place] [address] Johnnie Alcocer MD Surgeon General Surgery 03/23/[address] [place], [place] [address] Danni Marcus, CHANDLER Personal Advocate & 01/09/1901/17 Liaison (PAL) Fernando, Kyle Complex 04/23/19 Svetlana Osman Pharmacist Pharmacotherapy 04/23/19 [facility] [address] [facility] [address] [place], [place] [phone] Haylie Cheung, Pharmacist Pharmacist 09/11/19 [facility] [address] [place] [address] Jaiden Holcomb Assigned PCP 05/24/20 MD Jayesh [address] [place] [address] Kajal Huggins, Assigned Neuroscience 01/29/21 10/23/21 MD Provider [address] [place] [address] [address] [place] [address] Patience Toussaint NP Assigned Surgical 01/29/21 02/11/[address] [place] [address] Provider [address] [place] [address] Brook Sánchez MD Assigned Infectious 07/04/[address] [place] [address] SE Disease Provider [place], [place] [address] Osmar Kidd MD Assigned Sleep Provider 09/26/21 [address] [id number] documented as of this encounter
--- OUTSIDE RECORDS SUMMARY | 2022-06-15 12:42 | XMS_ITS | Encounter Summary ---
:1945 Author Organization [facility] Address [address] [place] [address] Care Team Providers Name Role Phone Chastity Montero MD Unavailable [phone] Johnnie Alcocer MD Unavailable Danni Marcus RN Unavailable Unavailable Mtm, Ea Complex Unavailable Unavailable Svetlana Osman [facility] Unavailable [phone] Haylie Cheung [facility] Unavailable [phone] Jaiden Holcomb MD Primary Care Provider [phone] Jaiden Holcomb MD Unavailable [phone] Kajal Huggins MD Unavailable Patience Toussaint NP Unavailable Brook Sánchez MD Unavailable Reason for Visit Reason Comments Sleep Problem CPAP Data Encounter Details Date Type Department Care Team Description 09/07/2021 Documentation Only [facility] Estephanie Almaguer eep Problem (CPAP Sleep Center Virtual Data) Care [address] [place] [address], [address] [place] [address] Social History Tobacco Use Types Packs/Day Years [...] with No / Unsure 09/01/2021 10:54 AM ANIMAL PHYSIOLOGY TEACHER someone who was confirmed or suspected to have Coronavirus / COVID-19? documented as of this encounter Progress Notes Estephanie Almaguer - 09/07/2021 10:56 AM CSTSummary: [employer] Integration Patients machine has been added to [employer] and [facility] has been added as an Integrator. Should be able to view patients CPAP data remotely. AL PHYSIOLOGY TEACHER documented in this encounter Plan of Treatment Upcoming Encounters Date Type Specialty Care Team Description 11/15/2022 Virtual Visit Pharm Haylie Gonzalez, [facility] [address] [place] [address] ([place]o winter) 11/15/2022 Virtual Visit IM/Peds Yane Barraza MD [address] [facility] [place] [address] (Wo winter) 03/03/2023 Virtual Visit Neurology Erlinda Barber MD [address] [facility] [address] [place] [address] (Lena max) documented as of this encounter Visit Diagnoses Not on filedocumented in this encounter Additional Health Concerns Assessment Noted Time PHQ-9 Depression Total Score: 4 04/12/2019 7:03 AM CDT documented as of this encounter Care Teams Line Builder Relationship Specialty Start Date End Date Jaiden Holcomb PCP - General Internal Medicine 02/13/2010/03 MD Jayesh [address] [facility] [address] [place] [id number] Chastity Montero MD Dermatology 09/23/14 MD Martha [address] [facility] 98 [place], [place] [address] Johnnie Alcocer MD Surgeon General Surgery 03/23/17 [address] [facility] [address] [place], [place] [address] Danni Marcus, CHANDLER Personal Advocate & 01/09/1901/17 Liaison (PAL) Fernando, Ea Complex 04/23/19 Svetlana Osman Pharmacist Pharmacotherapy 04/23/19 Era, [facility] [address] [place], [place] [id number] Haylie Cheung, Pharmacist Pharmacist 09/11/19 [facility] [address] [place] [id number] Jaiden Holcomb Assigned PCP 05/24/20 MD Jayesh [address] [place], [place] [address] Kajal Huggins, Assigned Neuroscience 01/29/21 10/23/21 Provider [address] [facility] [address] [place] [address] Patience Toussaint NP Assigned Surgical 01/29/21 02/11/22 [address] [facility] Provider [address] [place] [address] Brook Sánchez MD Assigned Infectious 07/04/21 [address] [place] [address] documented as of this encounter
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
--- OUTSIDE RECORDS SUMMARY | 2022-06-15 12:43 | XMS_ITS | Encounter Summary ---
:1945 Author Organization [place] Address [address] [place] [address] Care Team Providers Name Role Phone Chastity Montero MD Unavailable [phone] Johnnie Alcocer MD Unavailable Danni Marcus RN Unavailable Unavailable Mtm, Ea Complex Unavailable Unavailable Svetlana Osman [facility] Unavailable [phone] Haylie Cheung [facility] Unavailable [phone] Jaiden Holcomb MD Primary Care Provider [phone] Jaiden Holcomb MD Unavailable Kajal Huggins MD Unavailable Patience Toussaint NP Unavailable Brook Sánchez MD Unavailable Encounter Details Date Type Department Care Team Description 07/29/[address] [facility] Ruben Briceño history of pulmonary embolism (Primary Dx); Therapy Visit Anticoagulation Columba Walton RN group home current use of 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; Clinic Paroxysmal atrial fibrillati on (H) [address] [place] [address] Social History Tobacco Use Types [...] More than 4 times per year 05/03/2021 [employer] services? Do you belong to any clubs [...] with No / Unsure 07/20/2021 1:50 PM AUTOMOBILE CLUB TRAVEL COUNSELOR someone who was confirmed or suspected to have Coronavirus / COVID-19? documented as of this encounter Progress Notes Columba Briceño RN - 07/29/2021 1:29 PM CST ANTICOAGULATION MANAGEMENT Charlette Velma Brush 76 year old female is on warfarin with therapeutic INR result. (Goal INR 2.0-3.0) Recent labs: (last 7 days) 07/29/21 1311 INR 2.2* ASSESSMENT Source(s): Chart Review and Home Care/Facility [...] INR in 1 week Summary As of 07/29/2021 Full warfarin instructions: 10 mg every day Next INR check: 08/05/2021 Telephone call with home care nurse Galdino who verbalizes understanding and agrees to plan Orders given to Homecare nurse/facility to recheck Education provided: None required Plan made per [facility] anticoagulation protocol Columba Briceño, CHANDLER Anticoagulation Clinic 07/29/2021 Anticoagulation Episode Summary Current INR goal: 2.0-3.0 TTR: 75.0 % (1 y) Target end date: Indefinite Send INR reminders to: [facility] Indications 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] group home current use of 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 [Z79.01] Paroxysmal atrial fibrillation (H) [I48.0] Comments: Anticoagulation Care Providers Provider Role Specialty Phone number Galdino Valdez MD Referring Family Medicine [phone] Jaiden Holcomb MD Referring Internal Medicine [phone] Lucero Stevenson MD Responsible Internal Medicine [phone] MOBILE CLUB TRAVEL COUNSELOR documented in this encounter Plan of Treatment Upcoming Encounters Date Type Specialty Care Team Description 11/15/2022 Virtual Visit Pharm Haylie Gonzalez, [facility] [address] [place] [address] (Wo rk) 11/15/2022 Virtual Visit [place] [address] [place] [address] [place] [address] (Lena max) 03/03/2023 Virtual Visit Neurology Erlinda Barber MD [address] [facility] 295 [place] [address] (Wo rk) documented as of this encounter Procedures Procedure Name Priority Date/Time Associated Diagnosis Comme nts INR (EXTERNAL Routine 07/29/2021 1:11 PM Results for this RESULT) AUTOMOBILE CLUB TRAVEL COUNSELOR procedure are i n the results section. documented in this encounter Results (ABNORMAL) INR (External Result) (07/29/2021 1:11 PM AUTOMOBILE CLUB TRAVEL COUNSELOR) P athologist Signature INR (External) 2.2 (A) 0.9 - 1.1 EXTERNAL LAB Specimen (Source) Anatomical Collection Method Collection Time Re ceived Time Location / / Volume Laterality Blood 07/29/2021 1:11 PM AUTOMOBILE CLUB TRAVEL COUNSELOR Resulting Agency Comment [facility] Patient Reported LAB - HIM EXTERNAL RESULT Performing Organization Address City/State/ZIP Code Phon e Number EXTERNAL LAB EXTERNAL LAB External Lab documented in this encounter Visit Diagnoses Diagnosis 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 embolism - Primary terminologist current use of anticoagulant t herapy Paroxysmal atrial fibrillation (H) Atrial fibrillation documented in this encounter Additional Health Concerns Assessment Noted Time PHQ-9 Depression Total Score: 4 04/12/2019 7:03 AM CDT documented as of this encounter Care Teams Public Affairs Specialist Relationship Specialty Start Date End Date Jaiden Holcomb PCP - General Internal Medicine 02/13/2010/03 MD Jayesh [address] [place] [address] [place] [address] Chastity Montero MD Dermatology 09/23/14 MD Martha [address] [facility] 98 [place], [place] [address] Johnnie Alcocer MD Surgeon General Surgery 03/23/[address] [place] [address] Danni Marcus, CHANDLER Personal Advocate & 01/09/1901/17 Liaison (PAL) Fernando, Ea Complex 04/23/19 Svetlana Osman Pharmacist Pharmacotherapy 04/23/19 Era, [facility] [address] [place] [address] Haylie Cheung, Pharmacist Pharmacist 09/11/19 [facility] [address] [place] [id number] Jaiden Holcomb Assigned PCP 05/24/20 MD Jayesh 9[address] [place] [address] Kajal Huggins, Assigned Neuroscience 01/29/21 10/23/21 [place] Provider [address] [place] [address] Patience Toussaint NP Assigned Surgical 01/29/21 02/11/[address] [place] [address] Provider [address], [place] [address] Brook Sánchez MD Assigned Infectious 07/04/[address] [place] [address] [place] [address] documented as of this encounter
--- OUTSIDE RECORDS SUMMARY | 2022-06-15 12:43 | XMS_ITS | Encounter Summary ---
:1945 Author Organization [facility] Address [address] [place] [address] Care Team Providers Name Role Phone Chastity Montero MD Unavailable [phone] Johnnie Alcocer MD Unavailable Danni Marcus RN Unavailable Unavailable Mtm, Ea Complex Unavailable Unavailable Svetlana Osman [facility] Unavailable [phone] Haylie Cheung [facility] Unavailable [phone] Jaiden Holcomb MD Primary Care Provider [phone] Jaiden Holcomb MD Unavailable [phone] Kajal Huggins MD Unavailable Patience Toussaint NP Unavailable Brook Sánchez MD Unavailable Encounter Details Date Type Department Care Team Description 07/20/2021 Travel Social History Tobacco Use Types Packs/Day [...] or relatives? How often do you attend congregation or More than 4 times per year 05/03/2021 gnosticist services? Do you belong to any clubs or No 05/03/2021 organizations such as congregation groups, unions, fraternal or athletic groups, or [...] place to sleep or slept in a chcf (including now)? Education Answer Date Recorded What is the highest level of school Bachelor's degree (e.g., BA, AB, 01/05/2019 you have completed or the highest BS) degree you have received? Sex Assigned at Date Recorded Female 12/24/2018 12:35 PM CDT COVID-19 Exposure Response Date Recorded In the last month, have you been in contact with No / Unsure 07/20/2021 1:50 PM LOOM TUNER someone who was confirmed or suspected to have Coronavirus / COVID-19? documented as of this encounter Plan of Treatment Upcoming Encounters Date Type Specialty Care Team Description 11/15/2022 Virtual Visit Pharm Haylie Gonzalez, [facility] [address] [facility] [place] [phone] (Wo rk) 11/15/2022 Virtual Visit IM/Yane Mathias MD [address] [place] [address] [place] [phone] (Wo rk) 03/03/2023 Virtual Visit Neurology Erlinda Barber MD 420 [facility] 295 [place] [address] (Wo rk) documented as of this encounter Visit Diagnoses Not on filedocumented in this encounter Additional Health Concerns Assessment Noted Time PHQ-9 Depression Total Score: 4 04/12/2019 7:03 AM CDT documented as of this encounter Care Teams Field Irrigation Worker Relationship Specialty Start Date End Date Jaiden Holcomb PCP - General Internal Medicine 02/13/2010/03 MD Jayesh [address] [place] [address] [place] [id number] Chastity Montero MD Dermatology 09/23/14 MD Martha 420 [facility] 98 [place] [address] Johnnie Alcocer MD Surgeon General Surgery 03/23/17 [address] [facility] 300 [place], [place] [phone] Danni Marcus, CHANDLER Personal Advocate & 01/09/1901/17 Liaison (PAL) Fernando, Ea Complex 04/23/19 Svetlana Osman Pharmacist Pharmacotherapy 04/23/19 Era, [facility] [address] [place] [address] Haylie Cheung, Pharmacist Pharmacist 09/11/19 [facility] [address] [facility] [address] [place], [place] [phone] Jaiden Holcomb Assigned PCP 05/24/20 MD Jayesh [address] [place] [address] [id number] Kajal Huggins, Assigned Neuroscience 01/29/21 10/23/21 MD Provider [address] [place] [address] [address] [place], [place] [phone] Patience Toussaint NP Assigned Surgical 01/29/21 02/11/[address] [place] [address] Provider [address] [place], [place] [phone] Brook Sánchez MD Assigned Infectious 07/04/[address] [place] [address] SE Disease Provider [place], [place] [address] documented as of this encounter
--- OUTSIDE RECORDS SUMMARY | 2022-06-15 12:43 | XMS_ITS | Encounter Summary ---
:1945 Author Organization [facility] Address [address] [place] [address] Care Team Providers Name Role Phone Chastity Montero MD Unavailable [phone] Johnnie Alcocer MD Unavailable Danni Marcus RN Unavailable Unavailable Mtm, Ea Complex Unavailable Unavailable Svetlana Osman [facility] Unavailable [phone] [facility] Unavailable [phone] Jaiden Holcomb MD Primary Care Provider Jaiden Holcomb MD Unavailable Kajal Huggins MD Unavailable Patience Toussaint NP Unavailable Brook Sánchez MD Unavailable Reason for Visit Reason Comments Medication Refill Encounter Details Date Type Department Care Team Description 07/05/2021 Refill M [facility] Wilbur Holcomb Medication Refill Yarelis Mcconnell MD [address] [address] [address] [place] [address] [phone] Social History Tobacco Use Types Packs/Day Years [...] More than 4 times per year 05/03/2021 christian services? Do you belong to any clubs [...] been in contact with No / Unsure 07/02/2021 10:44 AM HOUSING INSTALLER someone who was confirmed or suspected to have Coronavirus / COVID-19? documented as of this encounter Plan of Treatment Upcoming Encounters Date Type Specialty Care Team Description 11/15/2022 Virtual Visit Pharm Haylie Gonzalez, [facility] [address] [facility] [place] [place] [address] (Wo rk) 11/15/2022 Virtual Visit IM/Peds Yane Barraza MD [address] [place] [phone] (Wo rk) 03/03/2023 Virtual Visit Neurology Erlinda Barber MD 420 [facility] 295 [place], [place] [address] (Wo rk) documented as of this encounter Visit Diagnoses Diagnosis Essential hypertension, benign documented in this encounter Additional Health Concerns Assessment Noted Time PHQ-9 Depression Total Score: 4 04/12/2019 7:03 AM CDT documented as of this encounter Care Teams Ballet Professor Relationship Specialty Start Date End Date Jaiden Holcomb PCP - General Internal Medicine 02/13/2010/03 MD Jayesh [address] [facility] [address] [place], [place] [phone] Chastity Montero MD Dermatology 09/23/14 MD Martha [address] [facility] 98 [place] [address] Johnnie Alcocer MD Surgeon General Surgery 03/23/[address] [place] [address] Danni Marcus, CHANDLER Personal Advocate & 01/09/1901/17 Liaison (PAL) Fernando Ea Complex 04/23/19 Svetlana Osman Pharmacist Pharmacotherapy 04/23/19 Era, [facility] [address] [place] [address] Haylie Cheung, Pharmacist Pharmacist 09/11/[address] [facility] [address] [place], [place] [phone] Jaiden Holcomb Assigned PCP 05/24/20 MD Jayesh [address] [place] [id number] Kajal Huggins, Assigned Neuroscience 01/29/21 10/23/[address] [place] [address] [address] [place] [address] Patience Toussaint, VIANEY Assigned Surgical 01/29/21 02/11/22 2945 [facility] Provider [address] [place], [place] [phone] Brook Sánchez MD Assigned Infectious 07/04/[address] [place] [address] Disease Provider [place], [place] 6[address] documented as of this encounter
--- OUTSIDE RECORDS SUMMARY | 2022-06-15 12:43 | XMS_ITS | Encounter Summary ---
:1945 Author Organization [facility] Address [address] [place] [address] Care Team Providers Name Role Phone Chastity Montero MD Unavailable [phone] Johnnie Alcocer MD Unavailable Danni Marcus RN Unavailable Unavailable Mtm, Ea Complex Unavailable Unavailable Svetlana Osman [facility] Unavailable [phone] Haylie Cheung [facility] Unavailable [phone] Jaiden Holcomb MD Primary Care Provider Jaiden Holcomb MD Unavailable [phone] Ruth John MD Unavailable Kajal Huggins MD Unavailable Patience Toussaint NP Unavailable Reason for Visit Reason Comments RECHECK f/u Encounter Details Date Type Department Care Team Description 06/23/2021 Office Visit [facility] Brook Sánchez Non-heal ing wound of lower extremity, initial encounter (Primary Dx); Infectious Disease MD Matt Chronic kidney disease, stage [address] [address] Social History Tobacco Use Types Packs/Day [...] been in contact with No / Unsure 06/23/2021 10:43 AM PARAFFIN PLANT OPERATOR someone who was confirmed or suspected to have Coronavirus / COVID-19? documented as of this encounter Last Filed Vital Signs Vital Sign Reading Time Taken Comments Blood Pressure 168/100 06/23/2021 11:07 AM PARAFFIN PLANT OPERATOR Pulse 88 06/23/2021 11:06 AM PARAFFIN PLANT OPERATOR Temperature 36.6 ??C (97.8 ??F) 06/23/2021 11:06 AM PARAFFIN PLANT OPERATOR Respiratory Rate - - Oxygen Saturation 96% 06/23/2021 11:06 AM PARAFFIN PLANT OPERATOR Inhaled Oxygen Concentration - - Weight 163.1 kg (359 lb 8 oz) 06/23/2021 11:06 AM PARAFFIN PLANT OPERATOR Height 170.2 cm (5' 7) 06/23/2021 11:06 AM PARAFFIN PLANT OPERATOR Body Mass Index 56.31 06/23/2021 11:06 AM PARAFFIN PLANT OPERATOR documented in this encounter Progress Notes Brook Sánchez MD - 06/23/2021 11:30 AM CST ID Clinic In-person Followup Visit Assessment: 1. Chronic L ischial wound. No evidence of current infection, and in fact the wound is stable to improved and she has been off antimicorbials for a minimum of 3 months. In the past, has received empiric courses of therapy that have not dramatically altered the wounds appearance. Her habitus and lymphedema are likely largely contributing to her lack of healing. The location of the wound also predisposes to contamination of her dressings with urine, and also persistent moisture accumulation that can lead to some masceration. Based on her report, she undergoes enzymatic treatment about 1-2 times per week. I will be interested in the thoughts of the [facility] wound clinic as to whether there would be value in more frequent enzymatic debridement. 2. Obesity 3. Lymphedema 4. History of [...] cause, microbial diagnostics +/- therapeutics maybe indicated, in addition to imaging. - per discussion with [facility] wound clinic, unlikely to be a good surgical candidate due to concern for a non-healing graft site. Has been referred, would benefit from assessment of whether additional enzymatic debridement would be helpful here. - If antibiotics become necessary in the future, will need to have future discussions about antibiotic options. As above, she has tolerated PCN derivatives so long as infusion rate is titrated to her tolerance. It is a pleasure to participate in Charlette's care. Total visit length, including review of documentation, clinical assessment, and care coordination/counseling =45 min. Brook Sánchez MD Bee Breedermixer and scaler, Division of Infectious Diseases [facility] [phone] HPI: This is a 76-year-old woman with past history of morbid obesity, paroxysmal A. fib, PE and DVT, obstructive sleep apnea, and a chronic wound on her left ischial area. I last saw her in 04/2021. Please see below for HPI from that encounter. In the interval since our last visit. Her wound care clinic had to reduce her visits due to staffingchallenges, so she is going only every other week. Her dressings are changed three times weekly. Yajaira and her accompanying sister, the wound is stable to improved. There is a short tunnel that is smaller. Charlette in the last few days, though, has detected an odor from her dressings. HPI from initial visit: She reports that [...] seen by a wound care center in [facility]. Per their documentation, thewounds severity based [...] Patient has appointment with Retina Specialist at [facility] on 01/11. 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 [...] & Plan: Appointment with Retina Specialist at [facility] on 01/11/19. ??? Morbid obesity (H) [...] Referral placed for Dr. Kajal Huggins at [facility] in [place] per patient request. She has contact i [...] Multiple Vitamins-Minerals (PRESERVISION/LUTEIN) CAPS ??? nystatin (MYCOSTATIN) 632429 UNIT/GM external cream ??? nystatin (NYSTOP) 192750 UNIT/GM external powder ??? Clare-3 Fatty Acids (FISH OIL PO) ??? order [...] visible retractions or increased work of breathing. SKIN: I removed the dressing from her L perineal wound area. There is a fluid- impervious dressing that is slightly malodorous and likely contaminated with urine. The area was difficult to measure due to its dependent position. I would estimate it is at minimum 6cm by 4cm and 3-4 cm deep, with a tunnelat ? 7-o-clock position that is about 1cm. Not much appreciable change since our last visit. There were no signs of surrounding cellulitis. There did appear to be some fibrinous change on the surface of the wound. There was some induration at the caudal end of the wound, but this was likely due to gravity/lymphedema as there were no signs of infection. The wound itself did not demonstrate malodor. NEURO: Cranial nerves grossly intact. Mentation and speech appropriate for age. PSYCH: Mentation appears normal, affect normal/bright, judgement and insight intact, normal speech and appearance well-groomed. FFIN PLANT OPERATOR documented in this encounter Nursing Notes Maria Antonia Calles MA - 06/23/2021 11:30 AM CST Chief Complaint Patient presents with ??? RECHECK f/u BP (!) 168/100 Pulse 88 Temp 97.8 ??F (36.6 ??C) (Oral) Ht 1.702 m (5' 7) Wt (!) 163.1 kg (359 lb 8 oz) SpO2 96% BMI 56.31 kg/m?? Maria Antonia Calles MA FFIN PLANT OPERATOR documented in this encounter Plan of Treatment Upcoming Encounters Date Type Specialty Care Team Description 11/15/2022 Virtual Visit Haylie [place], [facility] [address] [facility] [place] [address] (Wo rk) 11/15/2022 Virtual Visit IM/Peds Yane Barraza MD [address] [facility] [place] [address] (Wo rk) 03/03/2023 Virtual Visit Neurology Erlinda Barber MD 420 [facility] 295 [place], [place] [phone] (Wo rk) documented as of this encounter Visit Diagnoses Diagnosis Non-healing wound of lower extremity, in itial encounter - Primary Chronic kidney disease, stage 1 documented in this encounter Additional Health Concerns Assessment Noted Time PHQ-9 Depression Total Score: 4 04/12/2019 7:03 AM CDT documented as of this encounter Care Teams Coal Cager Relationship Specialty Start Date End Date Jaiden Holcomb PCP - General Internal Medicine 02/13/2010/03 MD Jayesh [address] [facility] [address] [place] [phone] Chastity Montero MD Dermatology 09/23/14 420 [facility] 98 [place], [place] [address] Johnnie Alcocer MD Surgeon General Surgery 03/23/[address] [place], [place] [address] Danni Marcus, CHANDLER Personal Advocate & 01/09/1901/17 Liaison (PAL) [place], Ea Complex 04/23/19 Svetlana Osman, Pharmacist Pharmacotherapy 04/23/19 [facility] [address] [place] [phone] Haylie Cheugn, Pharmacist Pharmacist 09/11/19 [facility] [address] [place] [address] Jaiden Holcomb Assigned PCP 05/24/20 MD Jayesh 909 [place], [place] [address] Ruth John MD Assigned Infectious 01/29/21 07/03/21 [facility] INFECTIOUS Disease Provider [facility] [address] [facility] [address] [place] [address] Kajal Huggins MD Assigned Neuroscience 01/29/21 10/23/[address] [place] [address] Provider [address] [place] [address] Patience Toussaint NP Assigned Surgical 01/29/21 02/11/22 2945 [facility] Provider [address] [place] [address] documented as of this encounter
--- OUTSIDE RECORDS SUMMARY | 2022-06-15 12:43 | XMS_ITS | Encounter Summary ---
:1945 Author Organization [facility] Address [address] [place] [address] Care Team Providers Name Role Phone Chastity Montero MD Unavailable [phone] Johnnie Alcocer MD Unavailable Danni Marcus RN Unavailable Unavailable Mtm, Ea Complex Unavailable Unavailable Svetlana Osman [facility] Unavailable [phone] [facility] Unavailable [phone] Jaiden Holcomb MD Primary Care Provider [phone] Jaiden Holcomb MD Unavailable [phone] Ruth John MD Unavailable Kajal Huggins MD Unavailable Patience Toussaint NP Unavailable Encounter Details Date Type Department Care Team Description 07/02/2021 Travel Social History Tobacco Use Types Packs/Day [...] More than 4 times per year 05/03/2021 mandaen services? Do you belong to any clubs [...] with No / Unsure 07/02/2021 10:44 AM IRON BENDER someone who was confirmed or suspected to have Coronavirus / COVID-19? documented as of this encounter Plan of Treatment Upcoming Encounters Date Type Specialty Care Team Description 11/15/2022 Virtual Visit Pharm Haylie Gonzalez, [facility] 14[address] [employer] [place] [phone] (Wo rk) 11/15/2022 Virtual Visit IM/Yane Mathias MD [address] [place] [address] [place] [phone] (Wo rk) 03/03/2023 Virtual Visit Neurology Erlinda Barber MD [address] [place] [address] 295 [place] [address] (Wo rk) documented as of this encounter Visit Diagnoses Not on filedocumented in this encounter Additional Health Concerns Assessment Noted Time PHQ-9 Depression Total Score: 4 04/12/2019 7:03 AM CDT documented as of this encounter Care Teams Federal Mediator Relationship Specialty Start Date End Date Jaiden Holcomb PCP - General Internal Medicine 02/13/2010/03 MD Jayesh [address] [place] [address] [place] [phone] Chastity Montero MD Dermatology 09/23/[address] [place] [address] 98 [place], [place] [phone] Johnnie Alcocer MD Surgeon General Surgery 03/23/17 [address] [facility] 300 [place], [place] [address] Danni Marcus, RN Personal Advocate & 01/09/1901/17 Liaison (PAL) Fernando, Ea Complex 04/23/19 Svetlana Osman, Pharmacist Pharmacotherapy 04/23/[address] [place] [address] Haylie Cheung, Pharmacist Pharmacist 09/11/[address] [place], [place] [phone] Jaiden Holcomb Assigned PCP 05/24/20 MD Jayesh 909 [place], [place] [address] Ruth John MD Assigned Infectious 01/29/21 07/03/21 [facility] INFECTIOUS Disease Provider [facility] [address] [place] [address] 245 [place] [address] Kajal Huggins MD Assigned Neuroscience 01/29/21 10/23/[address] [place] [address] SU[address] Provider [address] [place] [address] Patience Toussaint NP Assigned Surgical 01/29/21 02/11/22 2945 [facility] Provider [address] [place], [place] [phone] documented as of this encounter
--- OUTSIDE RECORDS SUMMARY | 2022-06-15 12:43 | XMS_ITS | Encounter Summary ---
:1945 Author Organization [facility] Address [address] [place] [address] Care Team Providers Name Role Phone Chastity Montero MD Unavailable [phone] Johnnie Alcocer MD Unavailable Danni Marcus RN Unavailable Unavailable Mtm, Ea Complex Unavailable Unavailable Svetlana Osman [facility] Unavailable [phone] Haylie Cheung [facility] Unavailable [phone] Jaiden Holcomb MD Primary Care Provider [phone] Jaiden Holcomb MD Unavailable [phone] Ruth John MD Unavailable Kajal Huggins MD Unavailable Patience Toussaint NP Unavailable Encounter Details Date Type Department Care Team Description 06/03/2021 Travel Social History Tobacco Use Types Packs/Day [...] been in contact with No / Unsure 06/03/2021 11:10 AM DEBT COLLECTOR someone who was confirmed or suspected to have Coronavirus / COVID-19? documented as of this encounter Plan of Treatment Upcoming Encounters Date Type Specialty Care Team Description 11/15/2022 Virtual Visit Pharm Haylie Gonzalez, [facility] 1440 [facility] [place] [phone] (Wo rk) 11/15/2022 Virtual Visit IM/Yane Mathias MD [address] [place] [address] [place] [phone] (Wo rk) 03/03/2023 Virtual Visit Neurology Erlinda Barber MD [address] [place] [address] 295 [place] [address] (Wo rk) documented as of this encounter Visit Diagnoses Not on filedocumented in this encounter Additional Health Concerns Assessment Noted Time PHQ-9 Depression Total Score: 4 04/12/2019 7:03 AM CDT documented as of this encounter Care Teams Inspector And Unloader Relationship Specialty Start Date End Date Jaiden Holcomb PCP - General Internal Medicine 02/13/2010/03 MD Jayesh [address] [place] [address] [place] [phone] Chastity Montero MD Dermatology 09/23/[address] [place] [address] 98 [place], [place] [phone] Johnnie Alcocer MD Surgeon General Surgery 03/23/17 [address] [facility] 300 [place], [place] [address] Danni Marcus, RN Personal Advocate & 01/09/1901/17 Liaison (PAL) Fernando, Ea Complex 04/23/19 Svetlana Osman, Pharmacist Pharmacotherapy 04/23/[address] [place] [address] Haylie Cheung, Pharmacist Pharmacist 09/11/[address] [place], [place] [phone] Jaiden Holcomb Assigned PCP 05/24/20 MD Jayesh 909 [place], [place] [address] Ruth John MD Assigned Infectious 01/29/21 07/03/21 [facility] INFECTIOUS Disease Provider [facility] [address] [place] [address] 245 [place] [address] Kjaal Huggins MD Assigned Neuroscience 01/29/21 10/23/[address] [place] [address] [address] Provider [address] [place] [address] Patience Toussaint NP Assigned Surgical 01/29/21 02/11/22 2945 [facility] Provider [address] [place], [place] [phone] documented as of this encounter
--- OUTSIDE RECORDS SUMMARY | 2022-06-15 12:43 | XMS_ITS | Encounter Summary ---
:1945 Author Organization [facility] Address [address] [place] [address] Care Team Providers Name Role Phone Chastity Montero MD Unavailable [phone] Johnnie Alcocer MD Unavailable Danni Marcus RN Unavailable Unavailable Mtm, Ea Complex Unavailable Unavailable Svetlana Osman [facility] Unavailable [phone] Haylie Cheung [facility] Unavailable [phone] Jaiden Holcomb MD Primary Care Provider [phone] Jaiden Holcomb MD Unavailable [phone] Ruth John MD Unavailable Kajal Huggins MD Unavailable Patience Toussaint NP Unavailable Encounter Details Date Type Department Care Team Description 06/23/2021 Travel Social History Tobacco Use Types Packs/Day [...] with No / Unsure 06/23/2021 10:43 AM RESEARCH ASSISTANT MEMBER someone who was confirmed or suspected to have Coronavirus / COVID-19? documented as of this encounter Plan of Treatment Upcoming Encounters Date Type Specialty Care Team Description 11/15/2022 Virtual Visit Pharm aHylie Gonzalez, [facility] 14[address] [facility] [place] [phone] (Wo rk) 11/15/2022 Virtual Visit IM/Yane Mathias MD [address] [place] [address] [place] [id number] (Wo rk) 03/03/2023 Virtual Visit Neurology Erlinda Barber MD [address] [place] [address] [address] [place] [address] (Wo rk) documented as of this encounter Visit Diagnoses Not on filedocumented in this encounter Additional Health Concerns Assessment Noted Time PHQ-9 Depression Total Score: 4 04/12/2019 7:03 AM CDT documented as of this encounter Care Teams Repairer Shoe Sticks Relationship Specialty Start Date End Date Jaiden Holcomb PCP - General Internal Medicine 02/13/2010/03 MD Jayesh [address] [place] [address] [place] [phone] Chastity Montero MD Dermatology 09/23/[address] [place] [address] [address] [place], [place] [phone] Johnnie Alcocer MD Surgeon General Surgery 03/23/17 [address] [facility] 300 [place], [place] [address] Danni Marcus, RN Personal Advocate & 01/09/1901/17 Liaison (PAL) Fernando, Ea Complex 04/23/19 Svetlana Osman, Pharmacist Pharmacotherapy 04/23/[address] [place] [address] Haylie Cheung, Pharmacist Pharmacist 09/11/[address] [place], [place] [phone] Jaiden Holcomb Assigned PCP 05/24/20 MD Jayesh 909 [place], [place] [address] Ruth John MD Assigned Infectious 01/29/21 07/03/21 [facility] INFECTIOUS Disease Provider [facility] [address] [place] [address] 245 [place] [address] Kajal Huggins MD Assigned Neuroscience 01/29/21 10/23/[address] [place] [address] [address] [place] [address] Patience Toussaint NP Assigned Surgical 01/29/21 02/11/22 2945 [facility] Provider [address] [place], [place] [id number] documented as of this encounter
--- OUTSIDE RECORDS SUMMARY | 2022-06-15 12:43 | XMS_ITS | Encounter Summary ---
:1945 Author Organization [place] Address [address] [place] [address] Care Team Providers Name Role Phone Chastity Montero MD Unavailable [phone] Johnnie Alcocer MD Unavailable Danni Marcus RN Unavailable Unavailable Mtm, Ea Complex Unavailable Unavailable Ran Osman [facility] Unavailable [phone] Haylie Cheung [facility] Unavailable [phone] Jaiden Holcomb MD Primary Care Provider Jaiden Holcomb MD Unavailable Kajal Huggins MD Unavailable Patience Toussaint NP Unavailable Brook Sánchez MD Unavailable Encounter Details Date Type Department Care Team Description 07/16/2021 Anticoagulation Therapy [facility] Zhang, 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 embolism (Primary Dx); Visit Clinic Yarelis Hwang detention current use of ant icoagulant therapy; [address] MD Jayesh Paroxysmal atrial fibrillation (H) [address] 909 [facility] 200 [facility] [address] Social History Tobacco Use Types Packs/Day [...] More than 4 times per year 05/03/2021 mu-ism services? Do you belong to any clubs [...] with No / Unsure 07/02/2021 10:44 AM DATA MANAGEMENT ANALYST someone who was confirmed or suspected to have Coronavirus / COVID-19? documented as of this encounter Progress Notes Ran Katz RN - 07/16/2021 9:51 AM CST ANTICOAGULATION MANAGEMENT Charlette Brush 76 year old female is on warfarin with therapeutic INR result. (Goal INR 2.0-3.0) Recent labs: (last 7 days) 07/16/21 0952 INR 2.2 ASSESSMENT Source(s): Chart Review and Home Care/Facility Nurse ??? Warfarin doses taken: Warfarin taken as instructed ??? Diet: No new diet changes identified ??? New illness, injury, or hospitalization: No. No wound infection found ??? Medication/supplement changes: None noted ??? Signs or symptoms of bleeding or clotting: No ??? Previous INR: Supratherapeutic ??? Additional findings: Refill needed today PLAN Recommended plan for no diet, medication or health factor changes affecting INR Dosing Instructions: Continue your current warfarin dose with next INR in 4 days Summary As of 07/16/2021 Full warfarin instructions: 10 mg every day Next INR check: 07/20/2021 Telephone call with Charlette and nurse Janie who verbalizes understanding and agrees to plan and who agrees to plan and repeated back plan correctly Orders given to Homecare nurse/facility to recheck Education provided: Please call back if any changes to your diet, medications or how you've been taking warfarin and Contact [phone] with any changes, questions or concerns. 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 [Z79.01] Paroxysmal atrial fibrillation (H) [I48.0] Comments: Anticoagulation Care Providers Provider Role Specialty Phone number Galdino Valdez MD Referring Family Medicine [phone] Jaiden Holcomb MD Referring Internal Medicine [phone] Lucero Stevenson MD Responsible Internal Medicine [phone] MANAGEMENT ANALYST documented in this encounter Miscellaneous Notes Addendum Note - Ran Katz RN - 07/16/2021 9:51 AM DATA MANAGEMENT ANALYST Addended by: RAN KATZ on: 07/16/2021 04:27 PM Modules accepted: Orders MANAGEMENT ANALYST documented in this encounter Plan of Treatment Upcoming Encounters Date Type Specialty Care Team Description 11/15/2022 Virtual Visit Haylie Wakefield, [facility] [address] [facility] [place] [address] (Wo rk) 11/15/2022 Virtual Visit IM/Peds Yane Barraza MD 3305 [facility] [place] [phone] (Wo rk) 03/03/2023 Virtual Visit Neurology Erlinda Barber MD [address] [facility] 295 [place] [address] (Wo rk) documented as of this encounter Procedures Procedure Name Priority Date/Time Associated Diagnosis Comme nts INR (EXTERNAL Routine 07/16/2021 9:52 AM Results for this RESULT) DATA MANAGEMENT ANALYST procedure are i n the results section. documented in this encounter Results INR (External Result) (07/16/2021 9:52 AM DATA MANAGEMENT ANALYST) P athologist Signature INR (External) 2.2 2 - 3 EXTERNAL LAB Specimen (Source) Anatomical Collection Method Collection Time Re ceived Time Location / / Volume Laterality Blood 07/16/2021 9:52 AM DATA MANAGEMENT ANALYST Resulting Agency Comment Home care Patient Reported LAB - HIM EXTERNAL RESULT Performing Organization Address City/State/ZIP Code Phon e Number EXTERNAL LAB EXTERNAL LAB External Lab documented in this encounter Visit Diagnoses Diagnosis 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 embolism - Primary detention current use of anticoagulant t herapy Paroxysmal atrial fibrillation (H) Atrial fibrillation documented in this encounter Additional Health Concerns Assessment Noted Time PHQ-9 Depression Total Score: 4 04/12/2019 7:03 AM CDT documented as of this encounter Care Teams Light Oil Operator Relationship Specialty Start Date End Date Jaiden Holcomb PCP - General Internal Medicine 02/13/2010/03 MD Jayesh [address] [place] [address] [place] [address] Chastity Montero MD Dermatology 09/23/14 MD Martha [address] [facility] 98 [place], [place] [address] Johnnie Alcocer MD Surgeon General Surgery 03/23/[address] [place], [place] [address] Danni Marcus, RN Personal Advocate & 01/09/1901/17 Liaison (PAL) Fernando, Ea Complex 04/23/19 Ran Osman Pharmacist Pharmacotherapy 04/23/19 Era, [facility] [address] [facility] [place] [address] Haylie Cheung, Pharmacist Pharmacist 09/11/19 [facility] [address] [facility] [place] [address] Jaiden Holcomb Assigned PCP 05/24/20 MD Jayesh [address] [place] [phone] Kajal Huggins, Assigned Neuroscience 01/29/21 10/23/21 [place] Provider [address] [place] [address] [address] [place] [address] Patience Toussaint NP Assigned Surgical 01/29/21 02/11/22 2945 [facility] Provider [address] [place], [place] [phone] Brook Sánchez MD Assigned Infectious 07/04/[address] [place] [address] Disease Provider [place], [place] [address] documented as of this encounter
--- OUTSIDE RECORDS SUMMARY | 2022-06-15 12:43 | XMS_ITS | Encounter Summary ---
:1945 Author Organization [facility] Address [address] [place] [address] Care Team Providers Name Role Phone Chastity Montero MD Unavailable [phone] Johnnie Alcocer MD Unavailable Danni Marcus RN Unavailable Unavailable Mtm, Ea Complex Unavailable Unavailable Svetlana Osman [facility] Unavailable [phone] Haylie Cheung [facility] Unavailable [phone] Jaiden Holcomb MD Primary Care Provider Jaiden Holcomb MD Unavailable Ruth John MD Unavailable Kajal Huggins MD Unavailable Patience Toussaint NP Unavailable Reason for Visit Reason Onset Date Comments [facility] 06/22/2021 Encounter Details Date Type Department Care Team Description 06/22/2021 Telephone [facility] Wilbur Holcomb [facility] Yarelis Mcconnell MD [address] [address] [address] [place] [address] [phone] Social History Tobacco Use Types Packs/Day Years [...] with No / Unsure 06/03/2021 11:10 AM BELT MAKER someone who was confirmed or suspected to have Coronavirus / COVID-19? documented as of this encounter Miscellaneous Notes Telephone Encounter - Jolanta Reddy RN - 06/22/2021 2:55 PM CST Faxed back to [facility] fax: [phone]. Jolanta Reddy RN Message handled by Nurse Triage. MAKER Telephone Encounter - Jaiden Holcomb MD - 06/22/2021 2:54 PM BELT MAKER Will send your way with signatures. Jaiden Holcomb MD Internal Medicine [facility] [place], [place] MAKER Telephone Encounter - Jolanta Reddy RN - 06/22/2021 1:58 PM CST Fax received-in provider's in-basket to sign. Will fax back when signed. Jolanta Reddy RN Message handled by Nurse Triage. MAKER Telephone Encounter - Jolanta Reddy RN - 06/22/2021 1:30 PM CST Received VM from Yuli with [facility]. She can be reached at [phone] Just wanted to confirm that Dr Holcomb will be following patient for INR and physical therapy for home care. Called Yuli back and confirmed this information, let her know Dr. Holcomb will follow patient. She will fax over orders to sign. Waiting for the fax. Jolanta Reddy RN Message handled by Nurse Triage. MAKER documented in this encounter Plan of Treatment Upcoming Encounters Date Type Specialty Care Team Description 11/15/2022 Virtual Visit Pharm D Haylie Cheung, [facility] 1440 [facility] [place] [id number] (Lena max) 11/15/2022 Virtual Visit IM/Peds Yane Barraza MD [address] [place] [address] [place] [phone] (Lena max) 03/03/2023 Virtual Visit Neurology Erlinda Barber MD 420 [facility] 295 [place], [place] [phone] (Lena max) documented as of this encounter Visit Diagnoses Not on filedocumented in this encounter Additional Health Concerns Assessment Noted Time PHQ-9 Depression Total Score: 4 04/12/2019 7:03 AM CDT documented as of this encounter Care Teams Market Research Analyst Relationship Specialty Start Date End Date Jaiden Holcomb PCP - General Internal Medicine 02/13/2010/03 MD Jayesh [address] [place] [address] [place] [address] Chastity Montero MD Dermatology 09/23/14 [address] [facility] 98 [place], [place] [address] Johnnie Alcocer MD Surgeon General Surgery 03/23/[address] [place] [address] Danni Marcus, CHANDLER Personal Advocate & 01/09/1901/17 Liaison (PAL) [place], Ea Complex 04/23/19 Svetlana Osman, Pharmacist Pharmacotherapy 04/23/19 [facility] [address] [place] [address] Haylie Cheung, Pharmacist Pharmacist 09/11/19 [facility] [address] [place], [place] [phone] Jaiden Holcomb Assigned PCP 05/24/20 MD Jayesh 909 [place] [address] Ruth John MD Assigned Infectious 01/29/21 07/03/21 [facility] INFECTIOUS Disease Provider [facility] [address] [place] [address] 245 [place], [place] [phone] Kajal Huggins MD Assigned Neuroscience 01/29/21 10/23/[address] [place] [address] Provider [address] [place] [address] Patience Toussaint NP Assigned Surgical 01/29/21 02/11/[address] [place] [address] Provider [address] [place], [place] [phone] documented as of this encounter
--- OUTSIDE RECORDS SUMMARY | 2022-06-15 12:43 | XMS_ITS | Encounter Summary ---
:1945 Author Organization [facility] Address [address] [place] [address] Care Team Providers Name Role Phone Chastity Montero MD Unavailable [phone] Johnnie Alcocer MD Unavailable Danni Marcus RN Unavailable Unavailable Mtm, Ea Complex Unavailable Unavailable Svetlana Osman [facility] Unavailable [phone] Haylie Cheung [facility] Unavailable [phone] Jaiden Holcomb MD Primary Care Provider Jaiden Holcomb MD Unavailable Kajal Huggins MD Unavailable Patience Toussaint NP Unavailable Brook Sánchez MD Unavailable Encounter Details Date Type Department Care Team Description 07/13/2021 Anticoagulation Therapy [facility] Zhang, 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 embolism (Primary Dx); Visit Clinic Yarelis Hwang [facility] current use of ant icoagulant therapy; [address] [place] MD Jayesh Paroxysmal atrial fibrillation (H) [address] 909 [facility] 200 [facility] [address] Social History Tobacco Use Types Packs/Day [...] More than 4 times per year 05/03/2021 evangelical services? Do you belong to any clubs [...] with No / Unsure 07/02/2021 10:44 AM NATURAL FOODS CLERK someone who was confirmed or suspected to have Coronavirus / COVID-19? documented as of this encounter Progress Notes Sasha Rueda RN - 07/13/2021 12:32 PM CST ANTICOAGULATION MANAGEMENT Charlette Brush 76 year old female is on warfarin with supratherapeutic INR result. (Goal INR 2.0-3.0) Recent labs: (last 7 days) 07/13/21 1232 INR 3.4* ASSESSMENT Source(s): Chart Review and Home Care/Facility Nurse ??? Warfarin doses taken: Warfarin taken as instructed ??? Diet: Decreased greens/vitamin K in diet; plans to resume previous intake ??? New illness, injury, or hospitalization: Yes: Wound care but possible wound infection ??? Medication/supplement changes: None noted ??? Signs or symptoms of bleeding or clotting: No ??? Previous INR: Therapeutic last visit; previously outside of goal range ??? Additional findings: Seeing wound care clinic tomorrow for possible wound infection. May be placed on Antibiotics? PLAN Recommended plan for temporary change(s) affecting INR Dosing Instructions: Partial hold then continue your current warfarin dose with next INR in 3 days Summary As of 07/13/2021 Full warfarin instructions: 07/13: 5 mg; Otherwise 10 mg every day Next INR check: 07/16/2021 Telephone call with home care nurse Galdino who verbalizes understanding and agrees to plan Orders given to Homecare nurse/facility to recheck Education provided: Please call back if any changes to your diet, medications or how you've been taking warfarin Plan made per [facility] anticoagulation protocol Sasha Rueda RN Anticoagulation Clinic 07/13/2021 Anticoagulation Episode Summary Current INR goal: 2.0-3.0 TTR: 75.3 % (1 y) Target end date: Indefinite Send INR reminders to: [facility] Indications 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] watermelon inspector current use of 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 [Z79.01] Paroxysmal atrial fibrillation (H) [I48.0] Comments: Anticoagulation Care Providers Provider Role Specialty Phone number Galdino Valdez MD Referring Family Medicine [phone] Jaiden Holcomb MD Referring Internal Medicine [phone] Lucero Stevenson MD Responsible Internal Medicine [phone] RAL FOODS CLERK documented in this encounter Plan of Treatment Upcoming Encounters Date Type Specialty Care Team Description 11/15/2022 Virtual Visit Pharm Haylie Gonzalez, [facility] 1440 [facility] [place] [address] (Lena max) 11/15/2022 Virtual Visit IM/Yane Mathias MD 101[address] [facility] [place] [address] (Lena max) 03/03/2023 Virtual Visit Neurology Erlinda Barber MD [address] [facility] 295 [place] [address] (Wo rk) documented as of this encounter Procedures Procedure Name Priority Date/Time Associated Diagnosis Comme nts INR (EXTERNAL Routine 07/13/2021 12:32 PM Results for this RESULT) NATURAL FOODS CLERK procedure are i n the results section. documented in this encounter Results (ABNORMAL) INR (External Result) (07/13/2021 12:32 PM NATURAL FOODS CLERK) P athologist Signature INR (External) 3.4 (A) 0.9 - 1.1 EXTERNAL LAB Specimen (Source) Anatomical Collection Method Collection Time Re ceived Time Location / / Volume Laterality Blood 07/13/2021 12:32 PM NATURAL FOODS CLERK Resulting Agency Comment Home care/[facility] Patient Reported LAB - HIM EXTERNAL RESULT Performing Organization Address City/State/ZIP Code Phon e Number EXTERNAL LAB EXTERNAL LAB External Lab documented in this encounter Visit Diagnoses Diagnosis 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 embolism - Primary [facility] current use of anticoagulant t herapy Paroxysmal atrial fibrillation (H) Atrial fibrillation documented in this encounter Additional Health Concerns Assessment Noted Time PHQ-9 Depression Total Score: 4 04/12/2019 7:03 AM CDT documented as of this encounter Care Teams Semiconductors Wafer Breaker Relationship Specialty Start Date End Date Jaiden Holcomb PCP - General Internal Medicine 02/13/2010/03 MD Jayesh [address] [facility] [address] [place] [phone] Chastity Montero MD Dermatology 09/23/14 MD Martha [address] [facility] 98 [place], [place] [address] Johnnie Alcocer MD Surgeon General Surgery 03/23/[address] [place], [place] [phone] Danni Marcus, CHANDLER Personal Advocate & 01/09/1901/17 Liaison (PAL) Kyle King Complex 04/23/19 Svetlana Osman Pharmacist Pharmacotherapy 04/23/19 Era, [facility] [address] [facility] [address] Haylie Cheung, Pharmacist Pharmacist 09/11/19 [facility] [address] [facility] [address] Jaiden Holcomb Assigned PCP 05/24/20 MD Jayesh [address] [place] [address] Kajal Huggins, Assigned Neuroscience 01/29/21 10/23/21 MD Provider [address] [place] [address] [address] [place], [place] [phone] Patience Toussaint NP Assigned Surgical 01/29/21 02/11/[address] [place] [address] Provider [address] [place], [place] [phone] Brook Sánchez MD Assigned Infectious 07/04/[address] [place] [address] SE Disease Provider [place], [place] [address] documented as of this encounter
--- OUTSIDE RECORDS SUMMARY | 2022-06-15 12:43 | XMS_ITS | Encounter Summary ---
:1945 Author Organization [facility] Address [address] [place] [address] Care Team Providers Name Role Phone Chastity Montero MD Unavailable [phone] Johnnie Alcocer MD Unavailable Danni Marcus RN Unavailable Unavailable Mtm, Ea Complex Unavailable Unavailable Svetlana Osman [facility] Unavailable [phone] Haylie Cheung [facility] Unavailable [phone] Jaiden Holcomb MD Primary Care Provider [phone] Jaiden Holcomb MD Unavailable [phone] Ruth John MD Unavailable Kajal Huggins MD Unavailable Patience Toussaint NP Unavailable Brook Sánchez MD Unavailable Yane Barraza MD Primary Care Provider Osmar Kidd MD Unavailable Erlinda Barber MD Unavailable Yane Barraza MD Primary Care Provider Lenore Alcala MD Unavailable Haylie Cheung [facility] Unavailable [phone] Gaye Patrick RN Unavailable Unavailable Kenya Abernathy APRN HOSPITALITY HOST Unavailable [phone] Hayley German OD Unavailable Haylie Cheung [facility] Unavailable [phone] Reason for Visit Reason Onset Date Comments Referral 05/28/2021 Encounter Details Date Type Department Care Team Description 05/28/2021 Telephone [facility] Wound [facility], Paulo Munson, Referral Clinic Russell ABHISHEK [address] [facility] [address] [place] [address] [place] [address] [phone] (Wo rk) Social History Tobacco Use Types [...] been in contact with No / Unsure 05/25/2021 3:45 PM ACCOUNT DIRECTOR someone who was confirmed or suspected to have Coronavirus / COVID-19? documented as of this encounter Miscellaneous Notes Telephone Encounter - Luis Goldsmith, RN - 05/28/2021 8:24 AM CST Consult received via workque from provider Gonzalo for ulcer of the Left Ishial. Please schedule with Juanita at [facility] [place] [facility]. Routing to immigration coordinator wound healing scheduling. UNT DIRECTOR documented in this encounter Plan of Treatment Upcoming Encounters Date Type Specialty Care Team Description 11/15/2022 Virtual Visit Pharm Haylie Gonzalez, [facility] [address] [facility] [place] [id number] (Wo rk) 11/15/2022 Virtual Visit IM/Peds Yane Barraza MD [address] [place] [address] [place] [address] (Wo rk) 03/03/2023 Virtual Visit Neurology Erlinda Barber MD [address] [facility] 295 [place], [place] [address] (Wo rk) documented as of this encounter Visit Diagnoses Not on filedocumented in this encounter Additional Health Concerns Assessment Noted Time PHQ-9 Depression Total Score: 4 04/12/2019 7:03 AM CDT documented as of this encounter Care Teams Pulmonary Function Technician Relationship Specialty Start Date End Date Jaiden Holcomb PCP - General Internal Medicine 02/13/2010/03 MD Jayesh [address] [place] [address] [place] [address] Yane Barraza MD PCP - General Internal Medicine 10/04/21 12/07/[address] [place] [address] [place] [address] Yane Barraza MD PCP - General Internal Medicine 12/08/[address] [place] [address] [place] [address] Chastity Montero MD Dermatology 09/23/14 [address] [facility] [address] [place] [address] Johnnie Alcocer MD Surgeon General Surgery 03/23/[address] [place], [place] [address] Danni Marcus, CHANDLER Personal Advocate & 01/09/1901/17 Liaison (PAL) Fernando, Ea Complex 04/23/19 Svetlana Osman, Pharmacist Pharmacotherapy 04/23/19 [facility] [address] [place] [address] [place] [address] Haylie Cheung, Pharmacist Pharmacist 09/11/[address] [place], [place] [id number] Jaiden Holcomb Assigned PCP 05/24/20 MD Jayesh [address] [place] [address] Ruth John MD Assigned Infectious 01/29/21 07/03/21 [facility] [address] [place] [address] [id number] Kajal Huggins MD Assigned Neuroscience 01/29/21 10/23/21 2945 [facility] Provider [address] [place] [address] Patience Toussaint NP Assigned Surgical 01/29/21 02/11/22 2945 [facility] Provider [address] [place], [place] [id number] Brook Sánchez MD Assigned Infectious 07/04/[address] [place] [address] SE Disease Provider [place], [place] [address] Osmar Kidd MD Assigned Sleep Provider 09/26/[address] [place] [address] [place] [address] Erlinda Barber MD Assigned Neuroscience 10/24/[address] [facility] [address] Provider [place], [place] 6[address] Lenore Alcala MD Assigned Heart and 12/18/21 01/21/[address] [place] Vascular Provider [address] [place] [id number] Haylie Cheung, Assigned MTM Pharmacist 01/08/22 04/01/22 [facility] [address] [place] [address] [id number] Gaye Patrick, RN Personal Advocate & 01/18/22 Liaison (PAL) Kenya Abernathy APRN Assigned Heart and 01/22/22 HOSPITAL[facility] HOST Vascular Provider [address] [place] [phone] Hayley German Assigned Surgical 02/12/22 KENNETH Yan Provider [address] [facility] [place] [address] Haylie hCeung, Assigned MTM Pharmacist 04/13/22 [facility] [address] [place] [address] [id number] documented as of this encounter
--- OUTSIDE RECORDS SUMMARY | 2022-06-15 12:43 | XMS_ITS | Encounter Summary ---
:1945 Author Organization [facility] Address [address] [place] [address] Care Team Providers Name Role Phone Chastity Montero MD Unavailable [phone] Johnnie Alcocer MD Unavailable Danni Marcus RN Unavailable Unavailable Mtm, Ea Complex Unavailable Unavailable Svetlana Osman [facility] Unavailable [phone] Haylie Cheung [facility] Unavailable [phone] Jaiden Holcomb MD Primary Care Provider Jaiden Holcomb MD Unavailable Kajal Huggins MD Unavailable Patience Toussaint NP Unavailable Brook Sánchez MD Unavailable Encounter Details Date Type Department Care Team Description 08/06/[address] [facility] Zhang, 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 embolism (Primary Dx); Visit Clinic Yarelis Hwang iuss analyst current use of ant icoagulant therapy; 9955 Dupont MD Jayesh Paroxysmal atrial fibrillation (H) [address] 909 [facility] 200 [facility] [phone] Social History Tobacco Use Types Packs/Day [...] with No / Unsure 07/20/2021 1:50 PM ENTRY LEVEL PARALEGAL someone who was confirmed or suspected to have Coronavirus / COVID-19? documented as of this encounter Progress Notes Sasha Rueda RN - 08/06/2021 11:51 AM CST ANTICOAGULATION MANAGEMENT Charlette Brush 76 year old female is on warfarin with therapeutic INR result. (Goal INR 2.0-3.0) Recent labs: (last 7 days) 08/06/21 1151 INR 2.3* ASSESSMENT Source(s): Chart Review and Home Care/Facility Nurse ??? Warfarin doses taken: Warfarin taken as instructed ??? Diet: No new diet changes identified ??? New illness, injury, or hospitalization: No ??? Medication/supplement changes: None noted ??? Signs or symptoms of bleeding or clotting: No ??? Previous INR: Therapeutic last 2(+) visits ??? Additional findings: Wound Care PLAN Recommended plan for no diet, medication or health factor changes affecting INR Dosing Instructions: Continue your current warfarin dose with next INR in 2 weeks Summary As of 08/06/2021 Full warfarin instructions: 10 mg every day Next INR check: 08/20/2021 Detailed voice message left for home care nurse Galdino with dosing instructions and follow up date. 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] [facility]DC current use of 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 [Z79.01] Paroxysmal atrial fibrillation (H) [I48.0] Comments: Anticoagulation Care Providers Provider Role Specialty Phone number Galdino Valdez MD Referring Family Medicine [phone] Jaiden Holcomb MD Referring Internal Medicine [phone] Lucero Stevenson MD Responsible Internal Medicine [phone] Y LEVEL PARALEGAL documented in this encounter Plan of Treatment Upcoming Encounters Date Type Specialty Care Team Description 11/15/2022 Virtual Visit Pharm Haylie Gonzalez, [facility] 14[address] [facility] [place] [address] (Lena max) 11/15/2022 Virtual Visit IM/Yane Mathias MD 15[address] [facility] [place] [address] (Lena max) 03/03/2023 Virtual Visit Neurology Erlinda Barber MD [address] [facility] 295 [place] [address] (Wo rk) documented as of this encounter Procedures Procedure Name Priority Date/Time Associated Diagnosis Comme nts INR (EXTERNAL Routine 08/06/2021 11:51 AM Results for this RESULT) ENTRY LEVEL PARALEGAL procedure are i n the results section. documented in this encounter Results (ABNORMAL) INR (External Result) (08/06/2021 11:51 AM ENTRY LEVEL PARALEGAL) P athologist Signature INR (External) 2.3 (A) 0.9 - 1.1 EXTERNAL LAB Specimen (Source) Anatomical Collection Method Collection Time Re ceived Time Location / / Volume Laterality Blood 08/06/2021 11:51 AM ENTRY LEVEL PARALEGAL Resulting Agency Comment Home Care/[facility] Patient Reported LAB - HIM EXTERNAL RESULT Performing Organization Address City/State/ZIP Code Phon e Number EXTERNAL LAB EXTERNAL LAB External Lab documented in this encounter Visit Diagnoses Diagnosis 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 embolism - Primary [facility]DC current use of anticoagulant t herapy Paroxysmal atrial fibrillation (H) Atrial fibrillation documented in this encounter Additional Health Concerns Assessment Noted Time PHQ-9 Depression Total Score: 4 04/12/2019 7:03 AM CDT documented as of this encounter Care Teams Mat Inspector Relationship Specialty Start Date End Date Jaiden Holcomb PCP - General Internal Medicine 02/13/2010/03 MD Jayesh [address] [place] [address] [place] [address] Chastity Montero MD Dermatology 09/23/14 MD Martha [address] [facility] 98 [place], [place] [address] Johnnie Alcocer MD Surgeon General Surgery 03/23/[address] [place] [address] Danni Marcus, CHANDLER Personal Advocate & 01/09/1901/17 Liaison (PAL) Fernando, Kyle Complex 04/23/19 Svetlana Osman Pharmacist Pharmacotherapy 04/23/19 [facility] [address] [facility] [address] [place], [place] [phone] Haylie Cheung, Pharmacist Pharmacist 09/11/19 [facility] [address] [place] [place] [address] Jaiden Holcomb Assigned PCP 05/24/20 MD Jayesh [address] [place] [address] Kajal Huggins, Assigned Neuroscience 01/29/21 10/23/21 MD Provider [address] [place] [address] [address] [place] [address] Patience Toussaint NP Assigned Surgical 01/29/21 02/11/[address] [place] [address] Provider [address] [place], [place] [phone] Brook Sánchez MD Assigned Infectious 07/04/[address] [place] [address] SE Disease Provider [place], [place] [address] documented as of this encounter
--- OUTSIDE RECORDS SUMMARY | 2022-06-15 12:43 | XMS_ITS | Encounter Summary ---
:1945 Author Organization [facility] Address [address] [place] [address] Care Team Providers Name Role Phone Chastity Montero MD Unavailable [phone] Johnnie Alcocer MD Unavailable Danni Marcus RN Unavailable Unavailable Mtm, Ea Complex Unavailable Unavailable Svetlana Osman [facility] Unavailable [phone] Haylie Cheung [facility] Unavailable [phone] Jaiden Holcomb MD Primary Care Provider Jaiden Holcomb MD Unavailable [phone] Kajal Huggins MD Unavailable Patience Toussaint NP Unavailable Brook Sánchez MD Unavailable Reason for Visit Reason Comments Medication Refill Encounter Details Date Type Department Care Team Description 08/12/2021 Refill M [facility] Wilbur Holcomb Medication Refill Yarelis Mcconnell MD [address] [address] [address] [place] [address] [phone] Social History Tobacco Use Types Packs/Day Years [...] More than 4 times per year 05/03/2021 [employer]? Do you belong to any [...] with No / Unsure 07/20/2021 1:50 PM TRAVEL TICKETING REVIEWER someone who was confirmed or suspected to have Coronavirus / COVID-19? documented as of this encounter Plan of Treatment Upcoming Encounters Date Type Specialty Care Team Description 11/15/2022 Virtual Visit Pharm Haylie Gonzalez, [facility] [address] [facility] [place] [address] (Wo rk) 11/15/2022 Virtual Visit IM/Peds Yane Barraza MD [address] [facility] [place] [phone] (Wo rk) 03/03/2023 Virtual Visit Neurology Erlinda Barber MD 420 [facility] 295 [place], [place] [address] (Wo rk) documented as of this encounter Visit Diagnoses Diagnosis Essential hypertension, benign documented in this encounter Additional Health Concerns Assessment Noted Time PHQ-9 Depression Total Score: 4 04/12/2019 7:03 AM CDT documented as of this encounter Care Teams Frame Stripper Relationship Specialty Start Date End Date Jaiden Holcomb PCP - General Internal Medicine 02/13/2010/03 MD Jayesh [address] [facility] [address] [place], [place] [phone] Chastity Montero MD Dermatology 09/23/14 MD Martha [address] [facility] [address] [place] [address] Johnnie Alcocer MD Surgeon General Surgery 03/23/[address] [place] [address] Danni Marcus, CHANDLER Personal Advocate & 01/09/1901/17 Liaison (PAL) Fernando Ea Complex 04/23/19 Svetlana Osman Pharmacist Pharmacotherapy 04/23/19 Era, [facility] [address] [place] [address] Haylie Cheung, Pharmacist Pharmacist 09/11/19 [facility] [address] [place], [place] [id number] Jaiden Holcomb Assigned PCP 05/24/20 MD Jayesh [address] [place] [address] Kajal Huggins, Assigned Neuroscience 01/29/21 10/23/[address] [place] [address] [address] [place] [address] Patience Toussaint, VIANEY Assigned Surgical 01/29/21 02/11/22 2945 [facility] Provider [address] [place], [place] [phone] Brook Sánchez MD Assigned Infectious 07/04/[address] [place] [address] Disease Provider [place], [place] [address] documented as of this encounter
--- OUTSIDE RECORDS SUMMARY | 2022-06-15 12:43 | XMS_ITS | Encounter Summary ---
:1945 Author Organization [facility] Address [address] [place] [address] Care Team Providers Name Role Phone Chastity Montero MD Unavailable [phone] Johnnie Alcocer MD Unavailable Danni Marcus RN Unavailable Unavailable Mtm, Ea Complex Unavailable Unavailable Svetlana Osman [facility] Unavailable [phone] Haylie Cheung [facility] Unavailable [phone] Jaiden Holcomb MD Primary Care Provider [phone] Jaiden Holcomb MD Unavailable [phone] Ruth John MD Unavailable Kajal Huggins MD Unavailable Patience Toussaint NP Unavailable Reason for Referral Consultation (Routine) - Closed Specialty Diagnoses / Procedures Referred By Contact Refer red To Contact Wound Care Diagnoses Non-healing wound of lower extremity, initial encounter Brook Sánchez MD [facility] [address] [facility] [address] [place], [place] [address] [address] [address] Phone: Fax: Referral ID Status Reason Start Date Expiration Date Visits Requ ested Visits Authorized [id number] Closed 05/27/2021 05/27/2022 1 1 OGRAPH MACHINE OPERATOR Reason for Visit Reason Comments WOUND CARE Consultation (Routine) - Closed Specialty Diagnoses / Procedures Referred By Contact Refer red To Contact Wound Care Diagnoses Non-healing wound of lower extremity, initial encounter Brook Sánchez MD [facility] [address] [place] [address] [address] [place], [place] [address] [address] [place] [address] Phone: Fax: Referral ID Status Reason Start Date Expiration Date Visits Requ ested Visits Authorized [id number] Closed 05/27/2021 05/27/2022 1 1 Encounter Details Date Type Department Care Team Description 07/02/2021 Hospital Encounter [facility] Paulo Mccall Non-healing wound of lower extremity, initial encounter; Wound Clinic Oumou Munson PA-C Pressure injury of left buttock, stage 4 (H) [address] [facility] [address] [place], [place] [address] [address] [place] [address] [phone] Social History Tobacco Use Types Packs/Day Years [...] with No / Unsure 07/02/2021 10:44 AM PANTOGRAPH MACHINE OPERATOR someone who was confirmed or suspected to have Coronavirus / COVID-19? documented as of this encounter Last Filed Vital Signs Vital Sign Reading Time Taken Comments Blood Pressure 185/117 07/02/2021 10:49 AM PANTOGRAPH MACHINE OPERATOR Pulse 88 07/02/2021 10:49 AM PANTOGRAPH MACHINE OPERATOR Temperature 36.8 ??C (98.2 ??F) 07/02/2021 10:49 AM PANTOGRAPH MACHINE OPERATOR Respiratory Rate - - Oxygen Saturation - - Inhaled Oxygen Concentration - - Weight - - Height - - Body Mass Index - - documented in this encounter Discharge Instructions Discharge InstructionsLatia Palmer RN - 07/02/2021 11:23 AM CST Charlette Brush 1945 Wound Dressing Change: Left IT Cleanse wound and surrounding skin with: soap and water, rinse well, rinse with Anasept Cut Hydrofera Blue to wound bed and tuck Calcium Alginate into tunnel at 7 o;clock Cover with Xudry/ Sacral Mepilex dressing Change dressing everyother day and as needed for drainage Nuvia Mccall PA-C. July 02, 2021 Call us at [phone] if you have any questions about your wounds, have redness or swelling aroundyour wound, have a fever of 101 or greater or if you have any other problems or concerns. We answer the phone Monday through Monday 8 am to 4 pm, please leave a message as we check the voicemail frequently throughout the day. If you had a positive experience please indicate on your patient satisfaction survey form that [facility] will be sending you. If you have any billing related questions please call the [facility] Business office at [phone]. The clinic staff does not handle billing related matters. OGRAPH MACHINE OPERATOR documented in this encounter Medications at Time of Discharge Medication Sig Dispensed Refills Start Date End Date acetaminophen (TYLENOL) Take 500 mg by mouth 0 500 MG every 8 hours as tabletIndications: Pain needed bisacodyl (DULCOLAX) 5 Take 5 mg by mouth 0 12/04 MG EC daily as needed tabletIndications: Constipation, unspecified constipation type cetirizine (ZYRTEC) 10 Take 10 mg by mouth 2 0 MG tablet times daily hydrocortisone 2.5 % Daily as needed to 180 g 3 019 ointmentIndications: rash on arms and legs Dermatitis Multiple Take 1 tablet by 0 05/04/2021 Minerals-Vitamins mouth daily Generic (CITRACAL MAXIMUM PLUS) Centrum Silver from TABS [employer] (Vitamin D 1000 international unit(s) and calcium 300mg) Multiple Take 1 tablet by 0 Vitamins-Minerals mouth 2 times daily (PRESERVISION/LUTEIN) CAPS [place]-3 Fatty Acids Take 1 g by mouth 0 (FISH OIL PO) daily Lgxg-neu-zbzqzof Probiotic Product Take 1 capsule by 0 (PROBIOTIC PO) mouth daily Renew Life Probiotic vitamin C (ASCORBIC Take 1,000 mg by 0 ACID) 1000 MG TABS mouth daily atenolol (TENORMIN) 25 TAKE 1 TABLET(25 MG) 180 tablet 1 07/05/2021 MG tabletIndications: BY MOUTH TWICE DAILY Essential hypertension, benign Cholecalciferol Take 5,000 Units by 0 10/04/2021 (VITAMIN D PO) mouth daily docusate sodium Take 1 capsule (100 0 12/04/2020 10/04/2021 (COLACE) 100 MG mg) by mouth daily as capsuleIndications: needed for Constipation, constipation Patient unspecified take own Stool constipation type Softener. Recommend taking Monday,Monday, ay. FEROSUL 325 (65 Fe) MG TAKE 1 TABLET BY 100 tablet 0 021 10/04/2021 tabletIndications: Iron MOUTH EVERY OTHER DAY deficiency anemia, WITH BREAKFAST unspecified iron deficiency anemia type levETIRAcetam (KEPPRA) Take 1 tablet (500 180 tablet 3 03/2602/25/2022 500 MG mg) by mouth 2 times tabletIndications: daily Recurrent seizures (H) losartan (COZAAR) 50 MG TAKE 1 TABLET(50 MG) 90 tablet 1 08/12/2021 tabletIndications: BY MOUTH DAILY Essential hypertension, benign nystatin (MYCOSTATIN) APPLY EXTERNALLY TO 90 g 11 03/1610/04/2021 221195 UNIT/GM external THE AFFECTED AREA creamIndications: DAILY NEEDED FOR Dermatitis IRRITATION nystatin (NYSTOP) APPLY TOPICALLY TO 180 g 11 12/21/2020 10/04/2021 [id number] UNIT/GM external THE AFFECTED AREA powderIndications: BENEATH BILATERAL Dermatitis BREAST/GROIN FOLDS TWICE DAILY UNTIL RESOLVED order for Equipment being ordered: Bariatric 4-wheeled walker 1 each 0 03/08/2019 12/17/2021 DMEIndications: Seat width needs to be 20 inches or greater Lymphedema of both Handlebar width needs to be 22 inches or greater lower extremities, Morbid obesity (H), Left foot drop triamcinolone (KENALOG) Apply topically 2 45 g 0 09/1105/17/2022 0.1 % external times daily as needed ointmentIndications: for irritation Dermatitis warfarin ANTICOAGULANT Take 1 tablet (10 mg) 90 tablet 1 07/16/2021 (COUMADIN) 10 MG by mouth daily or as tabletIndications: Long directed by your ACC term current use of Care Team. 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 warfarin ANTICOAGULANT Take 10 mg daily or 200 tablet 0 06/1601/25/2022 (COUMADIN) 5 MG as directed by the tabletIndications: INR clinic 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 embolism, custodial current use of 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 zinc gluconate 50 MG Take 1 tablet (50 mg) 0 04/1610/04/2021 tablet by mouth daily documented as of this encounter Progress Notes Latia Palmer RN - 07/02/2021 11:03 AM CST Patient arrived for wound care visit. Certified Wound Care Nurse time spent evaluating patient record, completed a full evaluation and documented wound(s) & klever-wound skin; provided recommendationbased on treatment plan. Applied dressing, reviewed discharge instructions, patient education, and discussed plan of care with appropriate medical team staff members and patient and/or family members. All concerns addressed and education provided to the pt with good teach back. Nuvia Perez PA-C - 07/02/2021 10:50 AM CST Images from the original note were not included. [facility] ASSESSMENT: 1. Stage 4 pressure ulcer of left IT PLAN/DISCUSSION: 1. Discussed that we don't really have any additional treatment to offer Charlette here at our clinic. [facility] is now seeing her every week again and this is more than we would be able to see Charlette. Encouraged her to continue visiting with [facility]. 2. Wound care plan: continue current dressing plan as ordered by [facility] 3. Nutrition: vit D 5kIU/day, high protein diet 4. See bottom of note for detailed wound care and patient instructions HISTORY OF PRESENT ILLNESS: Charlette Brush is a 76 year old female with HTN, morbid obesity, recurrent PE/DVT, left foot drop, and CEFERINO who presents today for a stage 4 pressure ulcer of left IT. Initial event was October 2017, she had a fall in the bathroom and was down for prolonged period of time. Subsequently developed necrotizing fasciitis. She underwent two debridements and HBO at [facility]. We had seen her in our clinic in 2017 and 2018. Had visited with Dr. Biswas who at the time did not have any surgical options for her. Jacky since followed with several other clinics including [facility] and more recently the [facility]. Saw Dr. Steward who also did not recommend flap surgery. Unfortunately in the past three years she still has not really figured out a way to keep the dressing in place, still falling off when she uses the toilet. Has now had osteomyelitis and underwent IV therapy. Recently saw Dr. Sánchez at the [facility] team who did not feel any further antibiotics were indicated. She recommended patient see our teamto see if we could see her more frequently than [facility]. 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 VITALS: BP (!) 185/117 (BP Location: Left arm) Pulse 88 Temp 98.2 ??F (36.8 ??C) (Temporal) PHYSICAL EXAM: GENERAL: Patient is alert and oriented and in no acute distress INTEGUMENTARY: Wound (used by OP [facility] only) 08/08/18 1325 Left ischial tuberosity pressure injury (Active) Thickness/Stage full thickness 07/02/21 1055 Base granulating 07/02/21 1055 Periwound intact 07/02/21 1055 Periwound Temperature warm 07/02/21 1055 Periwound Skin Turgor soft 07/02/21 1055 Edges open 07/02/21 1055 Length (cm) 6.5 07/02/21 1055 Width (cm) 5 07/02/21 1055 Depth (cm) 6.7 07/02/21 1055 Wound (cm^2) 32.5 cm^2 07/02/21 1055 Wound Volume (cm^3) 217.75 cm^3 07/02/21 1055 Wound healing % -16.07 07/02/21 1055 Drainage Characteristics/Odor serosanguineous 07/02/21 1055 Drainage Amount moderate 07/02/21 1055 Care, Wound chemical cautery applied 07/02/21 1055 PROCEDURE: After verbal consent was obtained, hypergranulation tissue was treated with silver nitrate. Patient tolerated this well. MDM: 30-44 minutes were spent on the date of the visit reviewing previous chart notes, evaluating patient and developing the treatment plan, this excludes any time spent on procedures. PATIENT INSTRUCTIONS Further instructions from your care team Charlette Brush 1945 Wound Dressing Change: Left IT Cleanse wound and surrounding skin with: soap and water, rinse well, rinse with Anasept Cut Hydrofera Blue to wound bed and tuck Calcium Alginate into tunnel at 7 o;clock Cover with Xudry/ Sacral Mepilex dressing Change dressing everyother day and as needed for drainage Electronically signed by Nuvia Mccall PA-C on July 02, 2021 OGRAPH MACHINE OPERATOR documented in this encounter Plan of Treatment Upcoming Encounters Date Type Specialty Care Team Description 11/15/2022 Virtual Visit Haylie Wakefield, [facility] [address] [place] [address] (Wo rk) 11/15/2022 Virtual Visit [place] [address] [place] [address] [place] [address] (Wo rk) 03/03/2023 Virtual Visit Neurology Erlinda Barber MD [address] [facility] [address] [place], [place] [address] (Wo rk) Scheduled Referrals Name Type Priority Associated Order Schedule Diagnoses Wound Care Referral Routine: Next Non-healing wound 1 Occurre nces Referral available opening of lower extremity, sta rting 07/02/2021 initial encounter until 06/16 documented as of this encounter Visit Diagnoses Diagnosis Non-healing wound of lower extremity, in itial encounter Pressure injury of left buttock, stage 4 (H) documented in this encounter Additional Health Concerns Assessment Noted Time PHQ-9 Depression Total Score: 4 04/12/2019 7:03 AM CDT documented as of this encounter Care Teams Ornament Setter Relationship Specialty Start Date End Date Jaiden Holcomb PCP - General Internal Medicine 02/13/2010/03 MD Jayesh [address] [place] [address] Chastity Montero MD Dermatology 09/23/[address] [place] [address] [address] [place], [place] [address] Johnnie Alcocer MD Surgeon General Surgery 03/23/[address] [place], [place] [address] Danni Marcus, CHANDLER Personal Advocate & 01/09/1901/17 Liaison (PAL) Kyle King Complex 04/23/19 Svetlana Osman, Pharmacist Pharmacotherapy 04/23/19 [facility] [address] [place], [place] [id number] Haylie Cheung, Pharmacist Pharmacist 09/11/19 [facility] [address] [place] [address] Jaiden Holcomb Assigned PCP 05/24/20 MD Jayesh [address] [place] [address] Ruth John MD Assigned Infectious 01/29/21 07/03/21 [facility] INFECTIOUS Disease Provider [facility] [address] [place] [address] [address] [place] [address] Kajal Huggins MD Assigned Neuroscience 01/29/21 10/23/21 [address] [facility] [address] [place] [address] Patience Toussaint NP Assigned Surgical 01/29/21 02/11/22 [address] [facility] Provider [address] [place] [address] documented as of this encounter
--- OUTSIDE RECORDS SUMMARY | 2022-06-15 12:43 | XMS_ITS | Encounter Summary ---
:1945 Author Organization [place] Address [address] [place] [address] Care Team Providers Name Role Phone Chastity Montero MD Unavailable [phone] Johnnie Alcocer MD Unavailable Danni Marcus RN Unavailable Unavailable Mtm, Ea Complex Unavailable Unavailable Svetlana Osman [facility] Unavailable [phone] Haylie Cheung [facility] Unavailable [phone] Jaiden Holcomb MD Primary Care Provider [phone] Jaiden Holcomb MD Unavailable Ruth John MD Unavailable Kajal Huggins MD Unavailable Patience Toussaint NP Unavailable Encounter Details Date Type Department Care Team Description 06/29/2021 Anticoagulation Therapy [facility] Zhang 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 embolism (Primary Dx); Visit Clinic 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 documented as of this encounter Progress Notes Sasha Rueda RN - 06/29/2021 4:05 PM CST ANTICOAGULATION MANAGEMENT Charlette Brush 76 year old female is on warfarin with therapeutic INR result. (Goal INR 2.0-3.0) Recent labs: (last 7 days) 06/29/21 1606 INR 2.7* ASSESSMENT Source(s): Chart Review and Home Care/Facility [...] INR in 2 weeks Summary As of 06/29/2021 Full warfarin instructions: 10 mg every day Next INR check: Telephone call with home care nurse Erinn who verbalizes understanding and agrees to plan Orders given to Homecare nurse/facility to recheck Education provided: Please call back if any changes to your diet, medications or how you've been taking warfarin Plan made per [facility] anticoagulation protocol Sasha Rueda RN Anticoagulation Clinic 06/29/2021 Anticoagulation Episode Summary Current INR goal: 2.0-3.0 TTR: 77.5 % (1 y) Target end date: Indefinite Send INR reminders to: [facility] Indications 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] [facility] current use of 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 [Z79.01] Paroxysmal atrial fibrillation (H) [I48.0] Comments: Anticoagulation Care Providers Provider Role Specialty Phone number Galdino Valdez MD Referring Family Medicine [phone] Jaiden Holcomb MD Referring Internal Medicine [phone] Lucero Stevenson MD Responsible Internal Medicine [phone] TEACHER documented in this encounter Plan of Treatment Upcoming Encounters Date Type Specialty Care Team Description 11/15/2022 Virtual Visit Pharm Haylie Gonzalez, [facility] [address] [place] [address] (Lena max) 11/15/2022 Virtual Visit IM/Peds Yane Barraza MD [address] [facility] [place] [address] (Lena max) 03/03/2023 Virtual Visit Neurology Erlinda Barber MD [address] [facility] [address] [place] [address] (Lena max) documented as of this encounter Procedures Procedure Name Priority Date/Time Associated Diagnosis Comme nts INR (EXTERNAL Routine 06/29/2021 4:06 PM Results for this RESULT) ABE TEACHER procedure are i n the results section. documented in this encounter Results (ABNORMAL) INR (External Result) (06/29/2021 4:06 PM ABE TEACHER) P athologist Signature INR (External) 2.7 (A) 0.9 - 1.1 EXTERNAL LAB Specimen (Source) Anatomical Collection Method Collection Time Re ceived Time Location / / Volume Laterality Blood 06/29/2021 4:06 PM ABE TEACHER Resulting Agency Comment Home Care Patient Reported LAB - HIM EXTERNAL RESULT Performing Organization Address City/State/ZIP Code Phon e Number EXTERNAL LAB EXTERNAL LAB External Lab documented in this encounter Visit Diagnoses Diagnosis 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 embolism - Primary extermination supervisor current use of anticoagulant t herapy Paroxysmal atrial fibrillation (H) Atrial fibrillation documented in this encounter Additional Health Concerns Assessment Noted Time PHQ-9 Depression Total Score: 4 04/12/2019 7:03 AM CDT documented as of this encounter Care Teams Webbing Tacker Relationship Specialty Start Date End Date Jaiden Holcomb PCP - General Internal Medicine 02/13/2010/03 MD Jayesh [address] [facility] [address] [place], [place] [phone] Chastity Montero MD Dermatology 09/23/14 [address] [facility] [address] [place], [place] [address] Johnnie Alcocer MD Surgeon General Surgery 03/23/[address] [place], [place] [phone] Danni Marcus, CHANDLER Personal Advocate & 01/09/1901/17 Liaison (PAL) Kyle King Complex 04/23/19 Svetlana Osman, Pharmacist Pharmacotherapy 04/23/19 [facility] [address] [place], [place] [id number] Haylie Cheung, Pharmacist Pharmacist 09/11/19 [facility] [address] [place] [address] Jaiden Holcomb Assigned PCP 05/24/20 MD Jayesh [address] [place] [address] Ruth John MD Assigned Infectious 01/29/21 07/03/21 [facility] INFECTIOUS Disease Provider [facility] [address] [place] [address] [address] [place] [address] Kajal Huggins MD Assigned Neuroscience 01/29/21 10/23/21 [address] [facility] Provider [address] [place] [address] Patience Toussaint NP Assigned Surgical 01/29/21 02/11/22 [address] [facility] Provider [address] [place], [place] [id number] documented as of this encounter
--- OUTSIDE RECORDS SUMMARY | 2022-06-15 12:43 | XMS_ITS | Encounter Summary ---
:1945 Author Organization [place] Address [address] [place] [address] Care Team Providers Name Role Phone Chastity Montero MD Unavailable [phone] Johnnie Alcocer MD Unavailable Danni Marcus RN Unavailable Unavailable Mtm, Ea Complex Unavailable Unavailable Svetlana Osman [facility] Unavailable [phone] Haylie Cheung [facility] Unavailable [phone] Jaiden Holcomb MD Primary Care Provider Jaiden Holcomb MD Unavailable Ruth John MD Unavailable Kajal Huggins MD Unavailable Patience Toussaint NP Unavailable Reason for Visit Diagnostic Imaging Mammo (Routine) - Closed Specialty Diagnoses / Procedures Referred By Contact Refer red To Contact Diagnoses Encounter for screening mammogram for breast cancer Jaiden Holcomb, Procedures ADI Screen Bilateral w/Sven *MA Screening Digital Bilateral [address] [facility] [place] [address] Referral ID Status Reason Start Date Expiration Date Visits Requ ested Visits Authorized [id number] Closed 05/04/2021 05/04/2022 1 1 Encounter Details Date Type Department Care Team Description 06/03/2021 Ancillary Procedure [facility] [place] Jaidenart Mcconnell, screening mammogram 3305 Aditi Day MD for breast cancer [place] [address] [place] [address] [address] [place], [place] [address] Social History Tobacco Use Types Packs/Day [...] or relatives? How often do you attend denominational or More than 4 times per year 05/03/2021 sikh services? Do you belong to any clubs or No 05/03/2021 organizations such as denominational groups, unions, fraternal or athletic groups, or [...] with No / Unsure 06/03/2021 11:10 AM CNC MACHINE SETTER someone who was confirmed or suspected to have Coronavirus / COVID-19? documented as of this encounter Plan of Treatment Upcoming Encounters Date Type Specialty Care Team Description 11/15/2022 Virtual Visit Pharm Haylie Gonzalez, [facility] [address] [facility] [place] [address] (Lena max) 11/15/2022 Virtual Visit IM/Yane Mathias MD [address] [facility] [place] [address] (Lena max) 03/03/2023 Virtual Visit Neurology Erlinda Barber MD [address] [facility] 295 [place] [address] (Wo rk) documented as of this encounter Procedures Procedure Name Priority Date/Time Associated Diagnosis Comme nts MA SCREENING Routine 06/03/2021 11:34 AM Encounter for Results for this BILATERAL W/ SVEN CNC MACHINE SETTER screening mammogram pro cedure are in for breast cancer the result s section. documented in this encounter Results MA Screen Bilateral w/Sven (06/03/2021 11:34 AM CNC MACHINE SETTER) Anatomical Region Laterality Modality Breast Bilateral Mammography Specimen (Source) Anatomical Location Collection Method / Collectio n Time Received Time / Laterality Volume Narrative 06/03/2021 1:28 PM CNC MACHINE SETTER BILATERAL FULL FIELD DIGITAL SCREENING MAMMOGRAM WITH TOMOSYNTHESIS Performed on: 06/03/21 Compared to: 12/26/2018, 01/05/2016, , and 12/13/2012 Technique: ??This study was evaluated wi th the assistance of Computer-Aided Detection. ??Breast Tomosynthesis was us ed in interpretation. Findings: The breasts have scattered are as of fibroglandular density. ?? There is no radiographic evidence of mal ignancy. IMPRESSION: ACR BI-RADS Category 1: Nega tive RECOMMENDED FOLLOW-UP: Annual routine sc reening mammogram The results and recommendations of this examination will be communicated to the patient. Jaiden Holcomb MD IMG MAMMOGRAPHY ORDERABLES documented in this encounter Visit Diagnoses Diagnosis Encounter for screening mammogram for br east cancer documented in this encounter Additional Health Concerns Assessment Noted Time PHQ-9 Depression Total Score: 4 04/12/2019 7:03 AM CDT documented as of this encounter Care Teams Stranding Supervisor Relationship Specialty Start Date End Date Jaiden Holcomb PCP - General Internal Medicine 02/13/2010/03 MD Jayesh [address] [facility] [place] [address] Chastity Montero MD Dermatology 09/23/14 [address] [facility] 98 [place] [address] Johnnie Alcocer MD Surgeon General Surgery 03/23/17 [address] [facility] [address] [place] [address] Danni Marcus, RN Personal Advocate & 01/09/1901/17 Liaison (PAL) Fernando, Ea Complex 04/23/19 Svetlana Osman, Pharmacist Pharmacotherapy 04/23/19 [place] [address] [place] [address] Haylie Cheung, Pharmacist Pharmacist 09/11/[address] [place] [address] Jaiden Holcomb Assigned PCP 05/24/20 MD Jayesh 909 [place] [address] Ruth John MD Assigned Infectious 01/29/21 07/03/21 [facility] INFECTIOUS Disease Provider [facility] [address] [place] [address] [address] [place] [address] Kajal Huggins MD Assigned Neuroscience 01/29/21 10/23/[address] [place] [address] [address] [place] [address] Patience Toussaint NP Assigned Surgical 01/29/21 02/11/22 2945 [facility] Provider [address] [place], [place] [id number] documented as of this encounter
--- OUTSIDE RECORDS SUMMARY | 2022-06-15 12:43 | XMS_ITS | Encounter Summary ---
:1945 Author Organization [facility] Address [address] [place] [address] Care Team Providers Name Role Phone Chastity Montero MD Unavailable [phone] Johnnie Alcocer MD Unavailable Danni Marcus RN Unavailable Unavailable Mtm, Ea Complex Unavailable Unavailable Svetlana Osman [facility] Unavailable [phone] Haylie Cheung [facility] Unavailable [phone] Jaiden Holcomb MD Primary Care Provider Jaiden Holcomb MD Unavailable Ruth John MD Unavailable Kajal Huggins MD Unavailable Patience Toussaint NP Unavailable Encounter Details Date Type Department Care Team Description 06/17/2021 Anticoagulation Therapy [facility] Zhang 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 embolism (Primary Dx); Visit Clinic [place] Hwang 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 current use of ant icoagulant therapy; 7[address] [place] MD Jayesh Paroxysmal atrial fibrillation (H) [address] [phone] Social History Tobacco Use Types Packs/Day [...] with No / Unsure 06/03/2021 11:10 AM PRISON GUARD someone who was confirmed or suspected to have Coronavirus / COVID-19? documented as of this encounter Progress Notes Fadumo aDvies RN - 06/17/2021 10:45 AM CST ANTICOAGULATION MANAGEMENT Charlette Stilesalison 76 year old female is on warfarin with supratherapeutic INR result. (Goal INR 2.0-3.0) Recent labs: (last 7 days) 06/17/21 1046 INR 3.2* ASSESSMENT Source(s): Chart Review and Patient/Caregiver Call ??? 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] 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 current use of 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 [Z79.01] Paroxysmal atrial fibrillation (H) [I48.0] Comments: Anticoagulation Care Providers Provider Role Specialty Phone number Galdino Valdez MD Referring Family Medicine [phone] Jaiden Holcomb MD Referring Internal Medicine [phone] Lucero Stevenson MD Responsible Internal Medicine [phone] ON GUARD documented in this encounter Plan of Treatment Upcoming Encounters Date Type Specialty Care Team Description 11/15/2022 Virtual Visit Pharm Haylie Gonzalez, [facility] [address] [facility] [place] [address] (Lena max) 11/15/2022 Virtual Visit IM/Peds Yane Barraza MD [address] [facility] [place] [address] (Lena max) 03/03/2023 Virtual Visit Neurology Erlinda Barber MD 420 [facility] 295 [place] [address] (Lena max) documented as of this encounter Procedures Procedure Name Priority Date/Time Associated Diagnosis Comme nts INR (EXTERNAL Routine 06/17/2021 10:46 AM Results for this RESULT) PRISON GUARD procedure are i n the results section. documented in this encounter Results (ABNORMAL) INR (External Result) (06/17/2021 10:46 AM PRISON GUARD) P athologist Signature INR (External) 3.2 (A) 0.9 - 1.1 EXTERNAL LAB Specimen (Source) Anatomical Collection Method Collection Time Re ceived Time Location / / Volume Laterality Blood 06/17/2021 10:46 AM PRISON GUARD Resulting Agency Comment Home Care Patient Reported LAB - HIM EXTERNAL RESULT Performing Organization Address City/State/ZIP Code Phon e Number EXTERNAL LAB EXTERNAL LAB External Lab documented in this encounter Visit Diagnoses Diagnosis 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 embolism - Primary 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 current use of anticoagulant t herapy Paroxysmal atrial fibrillation (H) Atrial fibrillation documented in this encounter Additional Health Concerns Assessment Noted Time PHQ-9 Depression Total Score: 4 04/12/2019 7:03 AM CDT documented as of this encounter Care Teams Machine Feller Relationship Specialty Start Date End Date Jaiden Holcomb PCP - General Internal Medicine 02/13/2010/03 MD Jayesh [address] [facility] [address] [place], [place] [phone] Chastity Montero MD Dermatology 09/23/[address] [place] [address] 98 [place], [place] [address] Johnnie Alcocer MD Surgeon General Surgery 03/23/[address] [place], [place] [phone] Danni Marcus, CHANDLER Personal Advocate & 01/09/1901/17 Liaison (PAL) Fernando, Kyle Complex 04/23/19 Svetlana Osman, Pharmacist Pharmacotherapy 04/23/19 [facility] [address] [place], [place] [phone] Haylie Cheung, Pharmacist Pharmacist 09/11/19 [facility] [address] [place] [address] Jaiden Holcomb Assigned PCP 05/24/20 MD Jayesh 909 [place] [address] Ruth John MD Assigned Infectious 01/29/21 07/03/21 [facility] INFECTIOUS Disease Provider [facility] [address] [place] [address] 245 [place] [address] Kajal Huggins MD Assigned Neuroscience 01/29/21 10/23/21 29[address] [facility] [address] Provider [address] [place] [address] Patience Toussaint NP Assigned Surgical 01/29/21 02/11/22 2945 [facility] Provider [address] [place] [address] documented as of this encounter
--- OUTSIDE RECORDS SUMMARY | 2022-06-15 12:43 | XMS_ITS | Encounter Summary ---
:1945 Author Organization [place] Address [address] [facility] [place] [address] Care Team Providers Name Role Phone Chastity Montero MD Unavailable [phone] Johnnie Alcocer MD Unavailable Danni Marcus RN Unavailable Unavailable Mtm, Ea Complex Unavailable Unavailable Svetlana Osman [facility] Unavailable [phone] Haylie Cheung [facility] Unavailable [phone] Jaiden Holcomb MD Primary Care Provider [phone] Jaiden Holcomb MD Unavailable [phone] Kajal Huggins MD Unavailable Patience Toussaint NP Unavailable Brook Sánchez MD Unavailable Encounter Details Date Type Department Care Team Description 07/27/2021 Medical Correspondence [facility] Scan, [facility] Info Mgmt Srv cs Non-Provider [address] [place] [address] Social History Tobacco Use Types [...] or relatives? How often do you attend lutheran or More than 4 times per year 05/03/2021 evangelical services? Do you belong to any clubs or No 05/03/2021 organizations such as lutheran groups, unions, [employer] or athletic groups, or school groups? How [...] with No / Unsure 07/20/2021 1:50 PM AUTOMATIC HEAD SAWYER someone who was confirmed or suspected to have Coronavirus / COVID-19? documented as of this encounter Plan of Treatment Upcoming Encounters Date Type Specialty Care Team Description 11/15/2022 Virtual Visit Pharm Haylie Gonzalez, [facility] [address] [place] [address] [place] [phone] (Wo rk) 11/15/2022 Virtual Visit IM/PedYane Muir MD [address] [place] [address] [place] [phone] (Wo rk) 03/03/2023 Virtual Visit Neurology Erlinda Barber MD [address] [place] [address] 295 [place], [place] [address] (Wo rk) documented as of this encounter Visit Diagnoses Not on filedocumented in this encounter Additional Health Concerns Assessment Noted Time PHQ-9 Depression Total Score: 4 04/12/2019 7:03 AM CDT documented as of this encounter Care Teams Pattern Hanger Relationship Specialty Start Date End Date Jaiden Holcomb PCP - General Internal Medicine 02/13/2010/03 MD Jayesh [address] [place] [address] [place] [phone] Chastity Montero MD Dermatology 09/23/14 MD Martha [address] [facility] [address] [place], [place] [address] Johnnie Alcocer MD Surgeon General Surgery 03/23/[address] [place], [place] [address] Danni Marcus, RN Personal Advocate & 01/09/1901/17 Liaison (PAL) Fernando, Ea Complex 04/23/19 Svetlana Osman Pharmacist Pharmacotherapy 04/23/19 Era, [facility] [address] [place] [address] Haylie Cheung, Pharmacist Pharmacist 09/11/19 [facility] [address] [place] [address] [place], [place] [phone] Jaiden Holcomb Assigned PCP 05/24/20 MD Jayesh [address] [place] [address] Kajal Huggins, Assigned Neuroscience 01/29/21 10/23/21 MD Provider [address] [place] [address] Patience Toussaint NP Assigned Surgical 01/29/21 02/11/[address] [place] [address] Provider [address], [place] [phone] Brook Sánchez MD Assigned Infectious 07/04/[address] [place] [address] Disease Provider [place], [place] [address] documented as of this encounter
--- OUTSIDE RECORDS SUMMARY | 2022-06-15 12:43 | XMS_ITS | Encounter Summary ---
:1945 Author Organization [place] Address [facility] [place] [address] Care Team Providers Name Role Phone Chastity Montero MD Unavailable [phone] Johnnie Alcocer MD Unavailable Danni Marcus RN Unavailable Unavailable Mtm, Ea Complex Unavailable Unavailable Svetlana Osman [facility] Unavailable [phone] Haylie Cheung [facility] Unavailable [phone] Jaiden Holcomb MD Primary Care Provider [phone] Jaiden Holcomb MD Unavailable Kajal Huggins MD Unavailable Patience Toussaint NP Unavailable Brook Sánchez MD Unavailable Reason for Visit Reason Onset Date Comments Call To Schedule Appointment 07/21/2021 follow up a ppointment Encounter Details Date Type Department Care Team Description 07/21/2021 Telephone [facility] Opal Call To Schedule Sleep Center Kendall galvan MD Appointment (follow [address] 106 up appointment) [address] [place] [phone] [place] [address] [place] [address] Social History Tobacco Use Types Packs/Day Years [...] More than 4 times per year 05/03/2021 episcopalian services? Do you belong to any clubs [...] with No / Unsure 07/20/2021 1:50 PM GRIEF COUNSELOR someone who was confirmed or suspected to have Coronavirus / COVID-19? documented as of this encounter Miscellaneous Notes Telephone Encounter - Vandana Escobedo - 07/21/2021 10:38 AM CST Patient has been scheduled. Vandana Escobedo MA F COUNSELOR Telephone Encounter - Vandana Escobedo - 07/21/2021 10:30 AM CST ----- Message from Kendall Joseph MD sent at 07/18/2021 1:21 PM GRIEF COUNSELOR ----- Regarding: Please call patient to schedule a follow-up visit with either or Hi, Please call patient to schedule CEFERINO follow-up visit with either or -patient's sleep providers for a long time. I only saw the patient 1 time and there was no follow-up if she received areplacement device or not. Thank you, Christine F COUNSELOR documented in this encounter Plan of Treatment Upcoming Encounters Date Type Specialty Care Team Description 11/15/2022 Virtual Visit Haylie Wakefield, [facility] [address] [place], [place] [phone] (Wo rk) 11/15/2022 Virtual Visit [place] [address] [place] [address] [place] [address] (Wo rk) 03/03/2023 Virtual Visit Neurology Erlinda Barber MD [address] [place] [address] 295 [place], [place] [address] (Wo rk) documented as of this encounter Visit Diagnoses Not on filedocumented in this encounter Additional Health Concerns Assessment Noted Time PHQ-9 Depression Total Score: 4 04/12/2019 7:03 AM CDT documented as of this encounter Care Teams Wood Fence Erector Relationship Specialty Start Date End Date Jaiden Holcomb PCP - General Internal Medicine 02/13/2010/03 MD Jayesh [address] [place] [address] [place], [place] [phone] Chastity Montero MD Dermatology 09/23/14 MD Martha 420 [facility] 98 [place], [place] [address] Johnnie Alcocer MD Surgeon General Surgery 03/23/[address] [place], [place] [phone] Danni Marcus, CHANDLER Personal Advocate & 01/09/1901/17 Liaison (PAL) Fernando, Kyle Complex 04/23/19 Svetlana Osman Pharmacist Pharmacotherapy 04/23/19 Era, [facility] [address] [place] [address] Haylie Cheung, Pharmacist Pharmacist 09/11/19 [facility] [address] [place] [address] Jaiden Holcomb Assigned PCP 05/24/20 MD Jayesh [address] [place] [address] Kajal Huggins, Assigned Neuroscience 01/29/21 10/23/21 MD Provider [address] [place] [address] [address] [place], [place] [phone] Patience Toussaint NP Assigned Surgical 01/29/21 02/11/[address] [place] [address] Provider [address] [place] [address] Brook Sánchez MD Assigned Infectious 07/04/[address] [place] [address] [place] [address] documented as of this encounter
--- OUTSIDE RECORDS SUMMARY | 2022-06-15 12:43 | XMS_ITS | Encounter Summary ---
:1945 Author Organization [place] Address [address] [facility] [place] [address] Care Team Providers Name Role Phone Chastity Montero MD Unavailable [phone] Johnnie Alcocer MD Unavailable Danni Marcus RN Unavailable Unavailable Mtm, Ea Complex Unavailable Unavailable Svetlana Osman [facility] Unavailable [phone] Haylie Cheung [facility] Unavailable [phone] Jaiden Holcomb MD Primary Care Provider [phone] Jaiden Holcomb MD Unavailable [phone] Kajal Huggins MD Unavailable Patience Toussaint NP Unavailable Brook Sánchez MD Unavailable Encounter Details Date Type Department Care Team Description 07/20/2021 Anticoagulation [facility] Ruben Wagner history of pulmonary embolism (Primary Dx); Therapy Visit Anticoagulation Clin seth Petersen RN exterminator helper current use of ant icoagulant therapy; [address] Paroxysmal atrial fibrillati on (H) [place] [address] Social History Tobacco Use Types [...] More than 4 times per year 05/03/2021 denominational services? Do you belong to any clubs [...] with No / Unsure 07/02/2021 10:44 AM OUTGOING INSPECTOR someone who was confirmed or suspected to have Coronavirus / COVID-19? documented as of this encounter Progress Notes Nicola Wagner RN - 07/20/2021 12:56 PM CST ANTICOAGULATION MANAGEMENT Charlette Carreon Trudi 76 year old female is on warfarin with therapeutic INR result. (Goal INR 2.0-3.0) Recent labs: (last 7 days) 07/20/21 1257 INR 2.5* ASSESSMENT Source(s): Chart Review and Home Care/Facility Nurse ??? Warfarin doses taken: Warfarin taken as instructed ??? Diet: No new diet changes identified ??? New illness, injury, or hospitalization: None ??? Medication/supplement changes: None noted ??? Signs or symptoms of bleeding or clotting: No ??? Previous INR: Therapeutic last visit; previously outside of goal range ??? Additional findings: None PLAN Recommended plan for no diet, medication or health factor changes affecting INR Dosing Instructions: Continue your current warfarin dose with next INR in 10 days Summary As of 07/20/2021 Full warfarin instructions: 10 mg every day Next INR check: 07/30/2021 Telephone call with home care nurse Galdino who verbalizes understanding and agrees to plan Orders given to Homecare nurse/facility to recheck Education provided: Goal range and significance of current result Plan made per [facility] anticoagulation protocol Nicola Wagner RN Anticoagulation Clinic 07/20/2021 Anticoagulation Episode Summary Current INR goal: 2.0-3.0 TTR: 75.0 % (1 y) Target end date: Indefinite Send INR reminders to: [facility] Indications 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] exterminator helper current use of 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 [Z79.01] Paroxysmal atrial fibrillation (H) [I48.0] Comments: Anticoagulation Care Providers Provider Role Specialty Phone number Galdino Valdez MD Referring Family Medicine [phone] Jaiden Holcomb MD Referring Internal Medicine [phone] Lucero Stevenson MD Responsible Internal Medicine [phone] OING INSPECTOR documented in this encounter Plan of Treatment Upcoming Encounters Date Type Specialty Care Team Description 11/15/2022 Virtual Visit Pharm Haylie Gonzalez, [facility] [address] [facility] [place] [address] (Lena max) 11/15/2022 Virtual [place] [address] [place] [address] [place] [address] (Lena max) 03/03/2023 Virtual Visit Neurology Erlinda Barber MD [address] [facility] 295 [place] [address] (Lena max) documented as of this encounter Procedures Procedure Name Priority Date/Time Associated Diagnosis Comme nts INR (EXTERNAL Routine 07/20/2021 12:57 PM Results for this RESULT) OUTGOING INSPECTOR procedure are i n the results section. documented in this encounter Results (ABNORMAL) INR (External Result) (07/20/2021 12:57 PM OUTGOING INSPECTOR) P athologist Signature INR (External) 2.5 (A) 0.9 - 1.1 EXTERNAL LAB Specimen (Source) Anatomical Collection Method Collection Time Re ceived Time Location / / Volume Laterality Blood 07/20/2021 12:57 PM OUTGOING INSPECTOR Resulting Agency Comment Home care Patient Reported LAB - HIM EXTERNAL RESULT Performing Organization Address City/State/ZIP Code Phon e Number EXTERNAL LAB EXTERNAL LAB External Lab documented in this encounter Visit Diagnoses Diagnosis 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 embolism - Primary exterminator helper current use of anticoagulant t herapy Paroxysmal atrial fibrillation (H) Atrial fibrillation documented in this encounter Additional Health Concerns Assessment Noted Time PHQ-9 Depression Total Score: 4 04/12/2019 7:03 AM CDT documented as of this encounter Care Teams Rag Willow Operator Relationship Specialty Start Date End Date Jaiden Holcomb PCP - General Internal Medicine 02/13/2010/03 MD Jayesh [address] [place] [address] [place], [place] [id number] Chastity Montero MD Dermatology 09/23/14 MD Martha [address] [facility] 98 [place], [place] [phone] Johnnie Alcocer MD Surgeon General Surgery 03/23/17 [address] [facility] [address] [place] [address] Danni Marcus, CHANDLER Personal Advocate & 01/09/1901/17 Liaison (PAL) Fernando, Ea Complex 04/23/19 Svetlana Osman Pharmacist Pharmacotherapy 04/23/19 Era, [facility] [address] [place], [place] [id number] Haylie Cheung, Pharmacist Pharmacist 09/11/19 [facility] [address] [place] [address] Jaiden Holcomb Assigned PCP 05/24/20 MD Jayesh 909 [place] [address] Kajal Huggins, Assigned Neuroscience 01/29/21 10/23/21 MD Provider [address] [facility] [address] [place] [address] Patience Toussaint NP Assigned Surgical 01/29/21 02/11/22 2945 [facility] Provider [address] [place] [address] Brook Sánchez MD Assigned Infectious 07/04/21 [address] [facility] [place] [address] documented as of this encounter
--- OUTSIDE RECORDS SUMMARY | 2022-06-15 12:44 | XMS_ITS | Encounter Summary ---
:1945 Author Organization [place] Address [address] [place] [address] Care Team Providers Name Role Phone Chastity Montero MD Unavailable [phone] Johnnie Alcocer MD Unavailable Danni Marcus RN Unavailable Unavailable Mtm, Ea Complex Unavailable Unavailable Svetlana Osman [facility] Unavailable [phone] Haylie Cheung [facility] Unavailable [phone] Jaiden Holcomb MD Primary Care Provider [phone] Jaiden Holcomb MD Unavailable Ruth John MD Unavailable Kajal Huggins MD Unavailable Patience Toussaint NP Unavailable Reason for Visit Reason Onset Date Comments Forms 05/05/2021 Visit notes from Encounter Details Date Type Department Care Team Description 05/05/2021 [facility] Brook Sánchez (V isit notes from Infectious Disease MD Matt 05/03/2021) [address] [address] Social History Tobacco Use Types Packs/Day [...] been in contact with No / Unsure 05/03/2021 11:00 AM CDT someone who was confirmed or suspected to have Coronavirus / COVID-19? documented as of this encounter Miscellaneous Notes Telephone Encounter - Donna Ferrer RN - 05/05/2021 1:28 PM CDT Spoke with Dhara of [facility]. Discussed sending over notes as soon as visit note from 05/03 visit are signed. Will fax to [phone]. Telephone Encounter - Bernabe Gutierrez - 05/05/2021 1:19 PM CDT Health Call Center Phone Message May a detailed message be left on voicemail: yes Reason for Call: Other: Dhara called in from [facility] and requested visit notes from Dr. Sáncehz from appointment on 05/03/2021. Says she is looking to see what the doctor recommendation was.Request it be faxed to #[phone]. Action Taken: Other: ID Travel Screening: Not Applicable documented in this encounter Plan of Treatment Upcoming Encounters Date Type Specialty Care Team Description 11/15/2022 Virtual Visit Pharm Haylie Gonzalez, [facility] [address] [place] [phone] (Wo rk) 11/15/2022 Virtual Visit [place] [address] [place] [address] [place] [address] (Wo rk) 03/03/2023 Virtual Visit Neurology Erlinda Barber MD [address] [place] [address] [address] [place], [place] [address] (Wo rk) documented as of this encounter Visit Diagnoses Not on filedocumented in this encounter Additional Health Concerns Assessment Noted Time PHQ-9 Depression Total Score: 4 04/12/2019 7:03 AM CDT documented as of this encounter Care Teams Educational Advisor Relationship Specialty Start Date End Date Jaiden Holcomb PCP - General Internal Medicine 02/13/2010/03 MD Jayesh [address] [place] [address] [place] [address] Chastity Montero MD Dermatology 09/23/[address] [place] [address] 98 [place], [place] [address] Johnnie Alcocer MD Surgeon General Surgery 03/23/[address] [place], [place] [phone] Danni Marcus, CHANDLER Personal Advocate & 01/09/1901/17 Liaison (PAL) Mtkinsey, Ea Complex 04/23/19 Svetlana Osman, Pharmacist Pharmacotherapy 04/23/19 [facility] [address] [place] [address] Haylie Cheung, Pharmacist Pharmacist 09/11/19 [facility] [address] [place] [place] [address] Jaiden Holcomb Assigned PCP 05/24/20 MD Jayesh [address] [place], [place] [address] Ruth John MD Assigned Infectious 01/29/21 07/03/21 [facility] INFECTIOUS Disease Provider [facility] [address] [place] [address] [address] [place], [place] [phone] Kajal Huggins MD Assigned Neuroscience 01/29/21 10/23/21 [address] [facility] [address] Provider [address] [place] [address] Patience Toussaint NP Assigned Surgical 01/29/21 02/11/22 2945 [facility] Provider [address] [place], [place] [phone] documented as of this encounter
--- OUTSIDE RECORDS SUMMARY | 2022-06-15 12:44 | XMS_ITS | Encounter Summary ---
:1945 Author Organization [place] Address [facility] [place] [address] Care Team Providers Name Role Phone Chastity Montero MD Unavailable [phone] Johnnie Alcocer MD Unavailable Danni Marcus RN Unavailable Unavailable Kyle King Complex Unavailable Unavailable Svetlana Osman [facility] Unavailable [phone] Haylie Cheung [facility] Unavailable [phone] Jaiden Holcomb MD Primary Care Provider [phone] Jaiden Holcomb MD Unavailable Ruth John MD Unavailable Kajal Huggins MD Unavailable Patience Toussaint NP Unavailable Reason for Visit Reason Comments Imm/Inj Pfizer booster Imm/Inj Flu Shot Encounter Details Date Type Department Care Team Description 05/13/2021 [facility] 5b, Kyle Rn Pal Imm/Inj ( Pfizer [facility] [place] booster); Imm/Inj (Flu Visit [address] Shot) [facility] [address] [place] [address] Social History Tobacco Use [...] been in contact with No / Unsure 05/13/2021 11:22 AM CDT someone who was confirmed or suspected to have Coronavirus / COVID-19? documented as of this encounter Progress Notes Jolanta Reddy RN - 05/13/2021 11:30 AM CDT Patient here for Pfizer COVID booster and a flu shot. Consent form signed, documented. Patient was instructed to wait 15 minutes and she has. Tolerated vaccines well. Was sent home. We filled out ENOC for [facility]. Also, copied the most recent visit from last week ( patient had the original with her), in provider's inbasket to review. Jolanta Reddy RN Message handled by Nurse Triage. documented in this encounter Plan of Treatment Upcoming Encounters Date Type Specialty Care Team Description 11/15/2022 Virtual Visit Haylie Wakefield, [facility] [address] [facility] [address] [place], [place] [phone] (Wo rk) 11/15/2022 Virtual Visit IM/Yane Mathias MD [address] [facility] [address] [place] [phone] (Wo rk) 03/03/2023 Virtual Visit Neurology Erlinda Barber MD [address] [facility] 295 [place], [place] [address] (Wo rk) documented as of this encounter Visit Diagnoses Diagnosis Need for COVID-19 vaccine - Primary Need for prophylactic vaccination and in oculation against influenza documented in this encounter Additional Health Concerns Assessment Noted Time PHQ-9 Depression Total Score: 4 04/12/2019 7:03 AM CDT documented as of this encounter Care Teams Magnetic Observer Relationship Specialty Start Date End Date Jaiden Holcomb PCP - General Internal Medicine 02/13/2010/03 MD Jayesh [address] [facility] [address] [place], [place] [phone] Chastity Montero MD Dermatology 09/23/14 [address] [facility] 98 [place], [place] [address] Johnnie Alcocer MD Surgeon General Surgery 03/23/17 [address] [facility] 300 [place], [place] [phone] Danni Marcus, CHANDLER Personal Advocate & 01/09/1901/17 Liaison (PAL) Fernando, Ea Complex 04/23/19 Svetlana Osman, Pharmacist Pharmacotherapy 04/23/19 [facility] [address] [place], [place] [phone] Haylie Cheung, Pharmacist Pharmacist 09/11/19 [facility] [address] [place] [address] Jaiden Holcomb Assigned PCP 05/24/20 MD Jayesh [address] [place] [address] Ruth John MD Assigned Infectious 01/29/21 07/03/21 [facility] INFECTIOUS Disease Provider [facility] [address] [place] [address] [address] [place] [address] Kajal Huggins MD Assigned Neuroscience 01/29/21 10/23/21 [address] [facility] [address] Provider [address] [place] [address] Patience Toussaint NP Assigned Surgical 01/29/21 02/11/22 [address] [facility] Provider [address] [place] [address] documented as of this encounter
--- OUTSIDE RECORDS SUMMARY | 2022-06-15 12:44 | XMS_ITS | Encounter Summary ---
:1945 Author Organization [place] Address [address] [place] [address] Care Team Providers Name Role Phone Chastity Montero MD Unavailable [phone] Johnnie Alcocer MD Unavailable Danni Marcus RN Unavailable Unavailable Mtm, Ea Complex Unavailable Unavailable Svetlana Osman [facility] Unavailable [phone] Haylie Cheung [facility] Unavailable [phone] Jaiden Holcomb MD Primary Care Provider Jaiden Holcomb MD Unavailable Ruth John MD Unavailable Kajal Huggins MD Unavailable Patience Toussaint NP Unavailable Encounter Details Date Type Department Care Team Description 05/27/2021 Documentation Only [facility] Brook Sánchez, Infectious Disease MD Clinic [address] [address] [phone] Social History Tobacco Use Types Packs/Day Years [...] or relatives? How often do you attend evangelical or More than 4 times per year 05/03/2021 oriental orthodox services? Do you belong to any clubs or No 05/03/2021 organizations such as evangelical groups, unions, fraternal or athletic groups, or [...] with No / Unsure 05/25/2021 3:45 PM MANAGER CONTINUOUS IMPROVEMENT someone who was confirmed or suspected to have Coronavirus / COVID-19? documented as of this encounter Progress Notes Brook Sánchez MD - 05/27/2021 8:34 AM CST Discussed patient's case with Dr. Biswas from plastic surgery. At this time, no surgical intervention is present, due to the lack of need for debridement (wound ishealing) and morbidity associated with a flap for closure, since there is a high chance a flap wouldnot heal. If Charlette wishes, I would be happy to refer to the [facility] wound clinic, as a second opinion to [facility] where Charlette is currently attending for wound care. Could one of the nurses please call Charlette to let her know, and determine if she would like a referral? Thanks! Brook Sánchez MD Commercial Collections Specialistcutter inspector, Division of Infectious Diseases [facility] [phone] GER CONTINUOUS IMPROVEMENT documented in this encounter Plan of Treatment Upcoming Encounters Date Type Specialty Care Team Description 11/15/2022 Virtual Visit Haylie Wakefield, [facility] [address] [place], [place] [phone] (Wo rk) 11/15/2022 Virtual Visit IM/Peds Yane Barraza MD [address] [place] [address] [address] [place] [phone] (Wo rk) 03/03/2023 Virtual Visit Neurology Erlinda Barber MD [address] [place] [address] 295 [place], [place] [address] (Wo rk) documented as of this encounter Visit Diagnoses Not on filedocumented in this encounter Additional Health Concerns Assessment Noted Time PHQ-9 Depression Total Score: 4 04/12/2019 7:03 AM CDT documented as of this encounter Care Teams Mold Injector Relationship Specialty Start Date End Date Jaiden Holcomb PCP - General Internal Medicine 02/13/2010/03 MD Jayesh [address] [place] [address] [place] [address] Chastity Montero MD Dermatology 09/23/[address] [place] [address] 98 [place], [place] [address] Johnnie Alcocer MD Surgeon General Surgery 03/23/17 [address] [facility] [address] [place], [place] [address] Danni Marcus, CHANDLER Personal Advocate & 01/09/1901/17 Liaison (PAL) Fernando, Ea Complex 04/23/19 Svetlana Osman, Pharmacist Pharmacotherapy 04/23/19 [facility] [address] [place] [address] Haylie Cheung, Pharmacist Pharmacist 09/11/19 [facility] [address] [place], [place] [phone] Jaiden Holcomb Assigned PCP 05/24/20 MD Jayesh 909 [place] [address] Ruth John MD Assigned Infectious 01/29/21 07/03/21 [facility] INFECTIOUS Disease Provider [facility] [address] [place] [address] [address] [place] [address] Kajal Huggins MD Assigned Neuroscience 01/29/21 10/23/21 2945 [facility] Provider [address] [place] [address] Patience Toussaint NP Assigned Surgical 01/29/21 02/11/22 2945 [facility] Provider [address] [place] [address] documented as of this encounter
--- OUTSIDE RECORDS SUMMARY | 2022-06-15 12:44 | XMS_ITS | Encounter Summary ---
:1945 Author Organization [place] Address [address] [place] [address] Care Team Providers Name Role Phone Chastity Montero MD Unavailable [phone] Johnnie Alcocer MD Unavailable Danni Marcus RN Unavailable Unavailable Mtm, Ea Complex Unavailable Unavailable Svetlana Osman [facility] Unavailable [phone] Haylie Cheung [facility] Unavailable [phone] Jaiden Holcomb MD Primary Care Provider [phone] Jaiden Holcomb MD Unavailable [phone] Ruth John MD Unavailable Kajal Huggins MD Unavailable Patience Toussaint NP Unavailable Reason for Visit Reason Comments New Patient Buttock wound Encounter Details Date Type Department Care Team Description 05/03/2021 Office Visit [facility] Brook Sánchez Non-heal ing wound of lower extremity, initial encounter (Primary Dx); Infectious Disease MD Matt Pressure injury of left buttock, stage 4 (H) Clinic [address] [address] Social History Tobacco Use Types Packs/Day [...] or relatives? How often do you attend taoism or More than 4 times per year 05/03/2021 episcopalian services? Do you belong to any clubs or No 05/03/2021 organizations such as taoism groups, unions, fraternal or athletic groups, or [...] Sign Reading Time Taken Comments Blood Pressure 172/97 05/03/2021 11:17 AM CDT Pulse 80 05/03/2021 11:17 AM CDT Temperature - - Respiratory Rate - - Oxygen Saturation 95% 05/03/2021 11:17 AM CDT Inhaled Oxygen Concentration - - Weight 163.3 kg (360 lb) 05/03/2021 11:17 AM CDT Height - - Body Mass Index 56.38 11/04/2020 11:00 AM CDT documented in this encounter Progress Notes Brook Sánchez MD - 05/03/2021 11:30 AM CDT ID Clinic In-person Initial Visit Assessment: 1. Chronic L ischial wound. No evidence of current infection. In the past, has received empiric courses of therapy that have not dramatically altered the wounds appearance. Her habitus and lymphedema are likely largely contributing to her lack of healing. 2. Obesity 3. Lymphedema 4. History of necrotizing fasciitis s/p reported debridement. 5. CEFERINO 6. Eczema 7. Paroxysmal A fib, history of PE. On warfarin. 8. Multiple antibiotic allergies Plan: - At present, I do not see a role for additional infection-related diagnostics, as the wound is likely colonized. I encouraged her to continue to followup with her wound care clinic. - I will send a message to Dr. Biswas in Plastic Surgery. Charlette reports that she had a prior visit with Dr. Biswas, at which time Charlette was deemed to not be a surgical candidate. I indicated to Lázaroathat there may be no change to Dr. Biswas's surgical impression. - If antibiotics become necessary in the future, will need to have future discussions about antibiotic options, and consider allergy assessment to determine her candidacy for agents. It is a pleasure to participate in Charlette's care. Total visit length, including review of documentation, clinical assessment, and care coordination/counseling =60 min. Brook Sánchez MD Hospice Volunteerrobot programmer, Division of Infectious Diseases [facility] [phone] HPI: This is a 76-year-old woman with past history of morbid obesity, paroxysmal A. fib, PE and DVT, obstructive sleep apnea, and a chronic wound on her left ischial area. She reports that this wound developed in 2018. The wound is a consequence of her experiencing mechanical trauma and by report a penetrating injury that resulted when the commode that she was sitting on broke into pieces. She experiencedcomplicating necrotizing fasciitis. She reportedly underwent surgery to debride. In 2018, she describes that she had a wound that was approximately 3 to 4 cm in diameter and 4 to 5 cm deep. Unfortunately, this has been a nonhealing wound since 2018. She has undergone a series of MRIs, the most recent was 2 months ago but I do not have this report to review. She is also undergone empiric courses of parenteral antibiotics that have not measurably change the trajectory of her wounds appearance. At present, she is seen by a wound care center in [facility]. Per their documentation, thewounds severity based [...] Patient has appointment with Retina Specialist at [facility] on 01/11. 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 ??? Morbid obesity (H) ??? [...] Referral placed for Dr. Kajal Huggins at [facility] in [place] per patient request. She has contact i [...] coccyx L Current Outpatient Medications Medication ??? atenolol (TENORMIN) 25 MG tablet ??? bisacodyl (DULCOLAX) 5 MG EC tablet ??? cetirizine (ZYRTEC) 10 MG tablet ??? Cholecalciferol (VITAMIN D PO) ??? docusate sodium (COLACE) 100 MG capsule ??? FEROSUL 325 (65 Fe) MG tablet ??? hydrocortisone 2.5 % ointment ??? levETIRAcetam (KEPPRA) 500 MG tablet ??? losartan (COZAAR) 50 MG tablet ??? Multiple Vitamins-Minerals (PRESERVISION/LUTEIN) CAPS ??? nystatin (MYCOSTATIN) 936882 UNIT/GM external cream ??? nystatin (NYSTOP) 703595 UNIT/GM external powder ??? [place]-3 Fatty Acids (FISH OIL PO) ??? order for DME ??? Probiotic Product (PROBIOTIC PO) ??? triamcinolone (KENALOG) 0.1 % external ointment ??? vitamin C (ASCORBIC ACID) 1000 MG TABS ??? warfarin ANTICOAGULANT (COUMADIN) 10 MG tablet ??? warfarin ANTICOAGULANT (COUMADIN) 5 MG tablet ??? acetaminophen (TYLENOL) 500 MG tablet ??? Multiple Minerals-Vitamins (CITRACAL MAXIMUM PLUS) TABS ??? zinc gluconate 50 MG tablet No current facility-administered medications for this visit. Exam: GENERAL: Healthy, alert and no distress EYES: Eyes grossly normal to inspection. No discharge or erythema, or obvious scleral/conjunctival abnormalities. RESP: No audible wheeze, cough, or visible cyanosis. No visible retractions or increased work of breathing. SKIN: I removed the dressing from her L perineal wound area. The dressing was placed about 24hrs prior and was not saturated and did not contain malodorous fluid. The area was difficult to measure due to its dependent position. I would estimate it is at minimum 6cm by 4cm and 3-4 cm deep, with some tunneling. There were no signs of surrounding cellulitis. NEURO: Cranial nerves grossly intact. Mentation and speech appropriate for age. PSYCH: Mentation appears normal, affect normal/bright, judgement and insight intact, normal speech and appearance well-groomed. ATE BANKER documented in this encounter Plan of Treatment Upcoming Encounters Date Type Specialty Care Team Description 11/15/2022 Virtual Visit Pharm D Haylie Cheung, [facility] [address] [facility] [place] [address] (Lena max) 11/15/2022 Virtual Visit IM/Peds Yane Barraza MD [address] [facility] [place] [phone] (Lena max) 03/03/2023 Virtual Visit Neurology Erlinda Barber MD [address] [facility] [address] [place], [place] [address] (Wo rk) documented as of this encounter Visit Diagnoses Diagnosis Non-healing wound of lower extremity, in itial encounter - Primary Pressure injury of left buttock, stage 4 (H) documented in this encounter Additional Health Concerns Assessment Noted Time PHQ-9 Depression Total Score: 4 04/12/2019 7:03 AM CDT documented as of this encounter Care Teams Staking Technician Relationship Specialty Start Date End Date Jaiden Holcomb PCP - General Internal Medicine 02/13/2010/03 MD Jayesh [address] [facility] [place] [address] Chastity Montero MD Dermatology 09/23/14 [address] [facility] 98 [place], [place] [address] Johnnie Alcocer MD Surgeon General Surgery 03/23/[address] [place], [place] [address] Danni Marcus, CHANDLER Personal Advocate & 01/09/1901/17 Liaison (PAL) Kyle King Complex 04/23/19 Svetlana Osman, Pharmacist Pharmacotherapy 04/23/19 [place] [address] [place] [address] Haylie Cheung, Pharmacist Pharmacist 09/11/19 [facility] [address] [place] [phone] Jaiden Holcomb Assigned PCP 05/24/20 MD Jayesh [address] [place], [place] [address] Ruth John MD Assigned Infectious 01/29/21 07/03/21 [facility] INFECTIOUS Disease Provider [facility] [address] [place] [address] [address] [place], [place] [phone] Kajal Huggins MD Assigned Neuroscience 01/29/21 10/23/21 [address] [facility] [address] Provider [address] [place], [place] [phone] Patience Toussaint NP Assigned Surgical 01/29/21 02/11/[address] [place] [address] Provider [address] [place], [place] [phone] documented as of this encounter
--- OUTSIDE RECORDS SUMMARY | 2022-06-15 12:44 | XMS_ITS | Encounter Summary ---
:1945 Author Organization [place] Address [address] [place] [address] Care Team Providers Name Role Phone Chastity Montero MD Unavailable [phone] Johnnie Alcocer MD Unavailable Danni Marcus RN Unavailable Unavailable Mtm, Ea Complex Unavailable Unavailable Svetlana Osman [facility] Unavailable [phone] Haylie Cheung [facility] Unavailable [phone] Jaiden Holcomb MD Primary Care Provider [phone] Jaiden Holcomb MD Unavailable [phone] Ruth John MD Unavailable Kajal Huggins MD Unavailable Patience Toussaint NP Unavailable Encounter Details Date Type Department Care Team Description 05/13/2021 Lab [facility] Ess ential hypertension, benign [facility] (Primary Dx) [address] [facility] [address] [place] [address] Social [...] 05/03/2021 organizations such as episcopalian groups, unions, fraZanbato or athletic groups, or school groups? How [...] in contact with No / Unsure 05/13/2021 11:09 AM CDT someone who was confirmed or suspected to have Coronavirus / COVID-19? documented as of this encounter Plan of Treatment Upcoming Encounters Date Type Specialty Care Team Description 11/15/2022 Virtual Visit Pharm D Haylie Cheung, [facility] [address] [facility] [address] (Wo rk) 11/15/2022 Virtual [place] [address] [place] [address] [place] [phone] (Wo rk) 03/03/2023 Virtual Visit Neurology Erlinda Barber MD [address] [facility] 295 [place] [address] (Wo rk) documented as of this encounter Procedures Procedure Name Priority Date/Time Associated Comments Diagnosis ALBUMIN RANDOM URINE Routine 05/13/2021 12:22 Essential Res ults for this QUANTITATIVE PM CDT hypertension, procedure are in benign the results section. BASIC METABOLIC PANEL Routine 05/13/2021 11:20 Essential Re sults for this AM CDT hypertension, procedure are in benign the results section. documented in this encounter Results (ABNORMAL) Albumin Random Urine Quantitative with Creat Ratio (05/13/2021 12:22 PM CDT) [facility] gist Method Time Signature Creatinine 45 mg/dL 05/15/2021 [facility] Urine mg/dL 4:27 PM CDT Albumin Urine 14 mg/L 05/15/2021 [facility] mg/L 4:27 PM CDT Albumin Urine 31.11 (H) 0.00 - 05/15/2021 [facility] mg/g Cr 25.00 4:27 PM CDT mg/g Cr Specimen Anatomical Collection Method Collection Time Receive d Time (Source) Location / / Volume Laterality Urine URINE SPECIMEN Non-blood 05/13/2021 12:22 OBTAINED BY CLEAN Collection / PM CDT 12:22 PM C DT CATCH PROCEDURE / Unknown Unknown Jaiden Holcomb MD LAB - URINE ORDERABLES Performing Organization Address City/State/ZIP Code Phon e Number [facility] [place], [place] [phone] [facility] [phone] [place] [address] Lab (no room number, 1st floor of clinic) [facility] [place], [place] [phone] [facility] [phone] [address] Lab (no room number, 1st floor of clinic) (ABNORMAL) BASIC METABOLIC PANEL (05/13/2021 11:20 AM CDT) Analysis Performed At [facility] [place] logist Time Signature Sodium 140 133 - 144 05/14/2021 [facility] mmol/L 3:55 PM CDT Potassium 4.5 3.4 - 5.3 05/14/2021 [facility] mmol/L 3:55 PM CDT Chloride 111 (H) 94 - 109 05/14/2021 [facility] mmol/L 3:55 PM CDT Carbon Dioxide 24 20 - 32 05/14/2021 [facility] (CO2) mmol/L 3:55 PM CDT Anion Gap 5 3 - 14 05/14/2021 [facility] mmol/L 3:55 PM CDT Urea Nitrogen 22 7 - 30 05/14/2021 [facility] mg/dL 3:55 PM CDT Creatinine 0.56 0.52 - 05/14/2021 [facility] 1.04 mg/dL 3:55 PM CDT Calcium 9.0 8.5 - 10.1 05/14/2021 [facility] mg/dL 3:55 PM CDT Glucose 91 70 - 99 05/14/2021 [facility] mg/dL 3:55 PM CDT GFR Estimate >90 >60 05/14/2021 [facility] mL/min/1.7 3:55 PM CDT 3m2 Comment: As of January 24, 2021, eGFR is ca lculated by the CKD-EPI creatinine equation, without race adjustment. eGFR can be inf luenced by muscle mass, exercise, and diet. The reported eGFR is an estimation only and is only applicable if the renal function is stable. Specimen Anatomical Collection Method / Collection Time Recei yudy Time (Source) Location / Volume Laterality Blood STRUCTURE OF LEFT Venipuncture / 05/13/2021 11:20 04/17 UPPER LIMB / Unknown AM CDT 11:20 AM CDT Unknown Jaiden Holcomb MD LAB - BLOOD ORDERABLES Performing Organization Address City/State/ZIP Code [place] [address] [facility] [address] [facility], Room M309 documented in this encounter Visit Diagnoses Diagnosis Essential hypertension, benign - Primary documented in this encounter Additional Health Concerns Assessment Noted Time PHQ-9 Depression Total Score: 4 04/12/2019 7:03 AM CDT documented as of this encounter Care Teams Medical And Health Services Manager Relationship Specialty Start Date End Date Jaiden Holcomb PCP - General Internal Medicine 02/13/2010/03 MD Jayesh [address] [facility] [address] [place] [phone] Chastity Montero MD Dermatology 09/23/14 [address] [facility] 98 [place], [place] [address] Johnnie Alcocer MD Surgeon General Surgery 03/23/17 [address] [facility] 300 [place], [place] [phone] Danni Marcus, CHANDLER Personal Advocate & 6/26/19 7/4 /22 Liaison (PAL) Mtm, Ea Complex 04/23/19 Svetlana Osman, Pharmacist Pharmacotherapy 04/23/19 [facility] [address] [facility] [address] Haylie Cheung, Pharmacist Pharmacist 09/11/19 [facility] [address] [place] [address] Jaiden Holcomb Assigned PCP 05/24/20 MD Jayesh [address] [place] [address] Ruth John MD Assigned Infectious 01/29/21 07/03/21 [facility] INFECTIOUS Disease Provider [facility] [address] [place] [address] 245 [place] [address] Kajal Huggins MD Assigned Neuroscience 01/29/21 10/23/[address] [place] [address] Provider [address] [place] [address] Patience Toussaint NP Assigned Surgical 01/29/21 02/11/[address] [place] [address] Provider [address] [place] [address] documented as of this encounter
--- OUTSIDE RECORDS SUMMARY | 2022-06-15 12:44 | XMS_ITS | Encounter Summary ---
:1945 Author Organization [place] Address [address] [place] [address] Care Team Providers Name Role Phone Chastity Montero MD Unavailable [phone] Johnnie Alcocer MD Unavailable Danni Marcus RN Unavailable Unavailable Mtm, Ea Complex Unavailable Unavailable Svetlana Osman [facility] Unavailable [phone] Haylie Chueng [facility] Unavailable [phone] Jaiden Holcomb MD Primary Care Provider Jaiden Holcomb MD Unavailable Ruth John MD Unavailable Kajal Huggins MD Unavailable Patience Toussaint NP Unavailable Reason for Visit Reason Onset Date Comments *-*INCOMING RECORDS*-* 05/03/2021 Encounter Details Date Type Department Care Team Description 05/03/2021 PRE VISIT [facility] Brook Sánchez *-*INCOM ING RECORDS*-* Infectious Disease MD Matt [address] [phone] Social History Tobacco Use Types Packs/Day [...] this encounter Miscellaneous Notes Telephone Encounter - Tiana Russell - 04/22/2021 4:17 PM CDT RECORDS RECEIVED FROM: External DATE RECEIVED: 05.03.2021 NOTES (Gather within 2 years) STATUS DETAILS OFFICE NOTE from referring provider Received 03.30.2021 [facility] OFFICE NOTE from other specialist Interna 06.09.2020 Ruth John MD 07.11.2019 Mariano Hameed MD DISCHARGE SUMMARY from hospital N/A DISCHARGE REPORT from the ER N/A LABS (any labs) Internal / CE MEDICATION LIST Internal IMAGING (NEED IMAGES AND REPORTS) Osteomyelitis: Foot imaging N/A Liver Abscess: Abdominal imaging N/A Other (anything related to diagnoses N/A documented in this encounter Plan of Treatment Upcoming Encounters Date Type Specialty Care Team Description 11/15/2022 Virtual Visit Haylie Wakefield, [facility] [address] [facility] [place] [address] (Wo rk) 11/15/2022 Virtual Visit IM/Peds Yane Barraza MD [address] [facility] [place] [address] (Wo rk) 03/03/2023 Virtual Visit Neurology Erlinda Barber MD [address] [facility] 295 [place], [place] [address] (Wo rk) documented as of this encounter Visit Diagnoses Not on filedocumented in this encounter Additional Health Concerns Assessment Noted Time PHQ-9 Depression Total Score: 4 04/12/2019 7:03 AM CDT documented as of this encounter Care Teams Manager Event Relationship Specialty Start Date End Date Jaiden Holcomb PCP - General Internal Medicine 02/13/2010/03 MD Jayesh [address] [facility] [address] [place] [phone] Chastity Montero MD Dermatology 09/23/[address] [place] [address] 98 [place] [address] Johnnie Alcocer MD Surgeon General Surgery 03/23/17 [address] [facility] 300 [place], [place] [phone] Danni Marcus, CHANDLER Personal Advocate & 01/09/1901/17 Liaison (PAL) Fernando, Ea Complex 04/23/19 Svetlana Osman, Pharmacist Pharmacotherapy 04/23/19 [facility] [address] [place] [phone] Haylie Cheung, Pharmacist Pharmacist 09/11/19 [facility] [address] [place] [address] Jaiden Holcomb Assigned PCP 05/24/20 MD Jayesh [address] [place] [id number] Ruth John MD Assigned Infectious 01/29/21 07/03/21 [facility] INFECTIOUS Disease Provider [facility] [address] [place] [address] 245 [place] [address] Kajal Huggins MD Assigned Neuroscience 01/29/21 10/23/21 [address] [facility] [address] Provider [address] [place] [address] Patience Toussaint NP Assigned Surgical 01/29/21 02/11/22 [address] [facility] Provider [address] [place] [address] documented as of this encounter
--- OUTSIDE RECORDS SUMMARY | 2022-06-15 12:44 | XMS_ITS | Encounter Summary ---
:1945 Author Organization [place] Address [address] [place] [address] Care Team Providers Name Role Phone Chastity Montero MD Unavailable [phone] Johnnie Alcocer MD Unavailable Danni Marcus RN Unavailable Unavailable Mtm, Ea Complex Unavailable Unavailable Svetlana Osman [facility] Unavailable [phone] Haylie Cheung [facility] Unavailable [phone] Jaiden Holcomb MD Primary Care Provider [phone] Jaiden Holcomb MD Unavailable [phone] Ruth John MD Unavailable Kajal Huggins MD Unavailable Patience Toussaint NP Unavailable Encounter Details Date Type Department Care Team Description 05/03/2021 Travel Social History Tobacco Use Types Packs/Day [...] More than 4 times per year 05/03/2021 anglican services? Do you belong to any clubs [...] 11/15/2022 Virtual Visit Pharm D Haylie Cheung, [facility] [address] [facility] [place] [phone] (Wo rk) 11/15/2022 Virtual Visit IM/PedYane Muir MD [address] [place] [address] [place] [phone] (Wo rk) 03/03/2023 Virtual Visit Neurology Erlinda Barber MD [address] [place] [address] 295 [place] [address] (Wo rk) documented as of this encounter Visit Diagnoses Not on filedocumented in this encounter Additional Health Concerns Assessment Noted Time PHQ-9 Depression Total Score: 4 04/12/2019 7:03 AM CDT documented as of this encounter Care Teams Private Client Advisor Relationship Specialty Start Date End Date Jaiden Holcomb PCP - General Internal Medicine 02/13/2010/03 MD Jayesh [address] [place] [address] [place] [id number] Chastity Montero MD Dermatology 09/23/[address] [place] [address] 98 [place], [place] [phone] Johnnie Alcocer MD Surgeon General Surgery 03/23/17 [address] [facility] 300 [place] [address] Danni Marcus, RN Personal Advocate & 01/09/1901/17 Liaison (PAL) Fernando, Ea Complex 04/23/19 Svetlana Osman, Pharmacist Pharmacotherapy 04/23/[address] [place] [address] Haylie Cheung, Pharmacist Pharmacist 09/11/[address] [place], [place] [phone] Jaiden Holcomb Assigned PCP 05/24/20 MD Jayesh 909 [place] [address] Ruth John MD Assigned Infectious 01/29/21 07/03/21 [facility] INFECTIOUS Disease Provider [facility] [address] [place] [address] 245 [place] [address] Kajal Huggins MD Assigned Neuroscience 01/29/21 10/23/[address] [place] [address] [address] Provider [address] [place] [address] Patience Toussaint NP Assigned Surgical 01/29/21 02/11/22 [address] [facility] Provider [address] [place], [place] [phone] documented as of this encounter
--- OUTSIDE RECORDS SUMMARY | 2022-06-15 12:44 | XMS_ITS | Encounter Summary ---
:1945 Author Organization [place] Address [address] [place] [address] Care Team Providers Name Role Phone Chastity Montero MD Unavailable [phone] Johnnie Alcocer MD Unavailable Danni Marcus RN Unavailable Unavailable Mtm, Ea Complex Unavailable Unavailable Svetlana Osman [facility] Unavailable [phone] Haylie Cheung [facility] Unavailable [phone] Jaiden Holcomb MD Primary Care Provider Jaiden Holcomb MD Unavailable Ruth John MD Unavailable Kajal Huggins MD Unavailable Patience Toussaint NP Unavailable Encounter Details Date Type Department Care Team Description 04/09/2021 Anticoagulation Therapy [facility] Zhang 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 embolism (Primary Dx); Visit Clinic Yarelis Hwang 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 (Goal INR 2.0-3.0) Recent labs: (last 7 days) 04/09/21 1616 INR 1.9* ASSESSMENT Source(s): Chart Review and Home Care/Facility [...] INR in 1 week Summary As of 04/09/2021 Full warfarin instructions: 5 mg every Tue; 10 mg all other days Next INR check: Telephone call with home care nurse aCnde [phone] who verbalizes understanding and agrees to plan and who agrees to plan and repeated back plan correctly Orders given to Homecare nurse/facility to recheck Education provided: Please call back if any changes to your diet, medications or how you've been taking warfarin Plan made per [facility] anticoagulation protocol Svetlana Katz, [place] Anticoagulation Clinic 04/09/2021 Anticoagulation Episode Summary Current INR goal: 2.0-3.0 TTR: 77.8 % (1 y) Target end date: Indefinite Send INR reminders to: [facility] Indications 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] 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 [Z79.01] Paroxysmal atrial fibrillation (H) [I48.0] Comments: Anticoagulation Care Providers Provider Role Specialty Phone number Galdino Valdez MD Referring Family Medicine [phone] Jaiden Holcomb MD Referring Internal Medicine [phone] Lucero Stevenson MD Responsible Internal Medicine [phone] documented in this encounter Plan of Treatment Upcoming Encounters Date Type Specialty Care Team Description 11/15/2022 Virtual Visit Pharm Haylie Gonzalez, [facility] 1440 [facility] [place] [address] (Lena max) 11/15/2022 Virtual [place] [address] [place] [address] [place] [address] (Lena max) 03/03/2023 Virtual Visit Neurology Erlinda Barber MD 420 [facility] 295 [place] [address] (Lena max) documented as of this encounter Procedures Procedure Name Priority Date/Time Associated Diagnosis Comme nts INR (EXTERNAL Routine 04/09/2021 4:16 PM Results for this RESULT) CDT procedure are i n the results section. 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 of anticoagulant t herapy Paroxysmal atrial fibrillation (H) Atrial fibrillation documented in this encounter Additional Health Concerns Assessment Noted Time PHQ-9 Depression Total Score: 4 04/12/2019 7:03 AM CDT documented as of this encounter Care Teams Router Setter Relationship Specialty Start Date End Date Jaiden Holcomb PCP - General Internal Medicine 02/13/2010/03 MD Jayesh [address] [facility] [address] [place], [place] [id number] Chastity Montero MD Dermatology 09/23/[address] [place] [address] 98 [place], [place] [address] Johnnie Alcocer MD Surgeon General Surgery 03/23/[address] [place], [place] [id number] Danni Marcus, [place] Personal Advocate & 01/09/1901/17 Liaison (PAL) Kyle King Complex 04/23/19 Svetlana Osman, Pharmacist Pharmacotherapy 04/23/19 [facility] [address] [place] [address] Haylie Cheung, Pharmacist Pharmacist 09/11/19 [facility] [address] [place], [place] [id number] Jaiden Holcomb Assigned PCP 05/24/20 MD Jayesh 909 [place] [address] Ruth John MD Assigned Infectious 01/29/21 07/03/21 [facility] INFECTIOUS Disease Provider [facility] [address] [place] [address] 245 [place] [address] Kajal Huggins MD Assigned Neuroscience 01/29/21 10/23/21 2945 [facility] [address] Provider [address] [place] [address] Patience Toussaint NP Assigned Surgical 01/29/21 02/11/22 2945 [facility] Provider [address] [place], [place] [id number] documented as of this encounter
--- OUTSIDE RECORDS SUMMARY | 2022-06-15 12:44 | XMS_ITS | Encounter Summary ---
:1945 Author Organization [place] Address [address] [place] [address] Care Team Providers Name Role Phone Chastity Montero MD Unavailable [phone] Johnnie Alcocer MD Unavailable Danni Marcus RN Unavailable Unavailable Mtm, Ea Complex Unavailable Unavailable Svetlana Osman [facility] Unavailable [phone] Haylie Cheung [facility] Unavailable [phone] Jaiden Holcomb MD Primary Care Provider [phone] Jaiden Holcomb MD Unavailable Ruth John MD Unavailable Kajal Huggins MD Unavailable Patience Toussaint NP Unavailable Encounter Details Date Type Department Care Team Description 05/20/2021 Anticoagulation Therapy [facility] Zhang 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 embolism (Primary Dx); Visit Clinic Yarelis Hwang jail current use of ant icoagulant therapy; 5[address] [place] MD Jayesh Paroxysmal atrial fibrillation (H) [address] [address] Social History Tobacco Use Types Packs/Day [...] encounter Progress Notes Fadumo Davies RN - 05/20/2021 12:39 PM CDT ANTICOAGULATION MANAGEMENT Charlette Velma Brush 76 year old female is on warfarin with therapeutic INR result. (Goal INR 2.0-3.0) Recent labs: (last 7 days) 05/20/21 1239 INR 2.1* ASSESSMENT Source(s): Chart Review and Home Care/Facility [...] warfarin dose with next INR in 4 weeks Summary As of 05/20/2021 Full warfarin instructions: 10 mg every day Next INR check: Telephone call with Charlette who verbalizes understanding and agrees to plan Orders given to Homecare nurse/facility to recheck Education provided: Please call back if any changes to your diet, medications or how you've been taking warfarin Plan made per [facility] anticoagulation protocol Fadumo Davies RN Anticoagulation Clinic 05/20/2021 Anticoagulation Episode Summary Current INR goal: 2.0-3.0 TTR: 75.0 % (1 y) Target end date: Indefinite Send INR reminders to: [facility] Indications 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] jail current use of 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 [Z79.01] Paroxysmal atrial fibrillation (H) [I48.0] Comments: Anticoagulation Care Providers Provider Role Specialty Phone number Galdino Valdez MD Referring Family Medicine [phone] Jaiden Holcomb MD Referring Internal Medicine [phone] Lucero Stevenson MD Responsible Internal Medicine [phone] documented in this encounter Plan of Treatment Upcoming Encounters Date Type Specialty Care Team Description 11/15/2022 Virtual Visit Pharm Haylie Gonzalez, [facility] 14[address] [facility] [place] [address] (Lena max) 11/15/2022 Virtual Visit IM/Yane Mathias MD 8085 [facility] [place] [address] (Lena max) 03/03/2023 Virtual Visit Neurology Erlinda Barber MD 420 [facility] 295 [place] [address] (Lena max) documented as of this encounter Procedures Procedure Name Priority Date/Time Associated Diagnosis Comme nts INR (EXTERNAL Routine 05/20/2021 12:39 PM Results for this RESULT) CDT procedure are i n the results section. documented in this encounter Results (ABNORMAL) INR (External Result) (05/20/2021 12:39 PM CDT) P athologist Signature INR (External) 2.1 (A) 0.9 - 1.1 EXTERNAL LAB Specimen (Source) Anatomical Collection Method Collection Time Re ceived Time Location / / Volume Laterality Blood 05/20/2021 12:39 PM CDT Resulting Agency Comment Home care Patient Reported LAB - HIM EXTERNAL RESULT Performing Organization Address City/State/ZIP Code Phon e Number EXTERNAL LAB EXTERNAL LAB External Lab documented in this encounter Visit Diagnoses Diagnosis 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 embolism - Primary jail current use of anticoagulant t herapy Paroxysmal atrial fibrillation (H) Atrial fibrillation documented in this encounter Additional Health Concerns Assessment Noted Time PHQ-9 Depression Total Score: 4 04/12/2019 7:03 AM CDT documented as of this encounter Care Teams Divorce Mediator Relationship Specialty Start Date End Date Jaiden Holcomb PCP - General Internal Medicine 02/13/2010/03 MD Jayesh [address] [facility] [address] [place] [phone] Chastity Montero MD Dermatology 09/23/14 420 [facility] 98 [place], [place] [address] Johnnie Alcocer MD Surgeon General Surgery 03/23/[address] 300 [place], [place] [address] Danni Marcus, [place] Personal Advocate & 01/09/1901/17 Liaison (PAL) Kyle King Complex 04/23/19 Svetlana Osman, Pharmacist Pharmacotherapy 04/23/19 [facility] [address] [facility] [address] [place], [place] [phone] Haylie Cheung, Pharmacist Pharmacist 09/11/19 [facility] [address] [place] [address] [place] [address] Jaiden Holcomb Assigned PCP 05/24/20 MD Jayesh 909 [place] [address] Ruth John MD Assigned Infectious 01/29/21 07/03/21 [facility] INFECTIOUS Disease Provider [facility] [address] [place] [address] 245 [place] [address] Kajal Huggins MD Assigned Neuroscience 01/29/21 10/23/21 2945 [facility] Provider [address] [place] [address] Patience Toussaint NP Assigned Surgical 01/29/21 02/11/22 2945 [facility] Provider [address] [place] [address] documented as of this encounter
--- OUTSIDE RECORDS SUMMARY | 2022-06-15 12:44 | XMS_ITS | Encounter Summary ---
:1945 Author Organization [place] Address [address] [place] [address] Care Team Providers Name Role Phone Chastity Montero MD Unavailable [phone] Johnnie Alcocer MD Unavailable Danni Marcus RN Unavailable Unavailable Mtm, Ea Complex Unavailable Unavailable Svetlana Osman [facility] Unavailable [phone] Haylie Cheung [facility] Unavailable [phone] Jaiden Holcomb MD Primary Care Provider [phone] Jaiden Holcomb MD Unavailable [phone] Ruth John MD Unavailable Kajal Huggins MD Unavailable Patience Toussaint NP Unavailable Encounter Details Date Type Department Care Team Description 05/25/2021 Travel Social History Tobacco Use Types Packs/Day [...] More than 4 times per year 05/03/2021 religion services? Do you belong to any clubs [...] with No / Unsure 05/25/2021 3:45 PM [employer]LE SE[employer]ER someone who was confirmed or suspected to have Coronavirus / COVID-19? documented as of this encounter Plan of Treatment Upcoming Encounters Date Type Specialty Care Team Description 11/15/2022 Virtual Visit Pharm Haylie Gonzalez, [facility] 1440 [facility] [place] [phone] (Wo rk) 11/15/2022 Virtual Visit IM/Yane Mathias MD [address] [place] [address] [place] [phone] (Wo rk) 03/03/2023 Virtual Visit Neurology Erlinda Barber MD [address] [place] [address] 295 [place] [address] (Wo rk) documented as of this encounter Visit Diagnoses Not on filedocumented in this encounter Additional Health Concerns Assessment Noted Time PHQ-9 Depression Total Score: 4 04/12/2019 7:03 AM CDT documented as of this encounter Care Teams Overlock Waistline Joiner Relationship Specialty Start Date End Date Jaiden Holcomb PCP - General Internal Medicine 02/13/2010/03 MD Jayesh [address] [place] [address] [place] [phone] Chastity Montero MD Dermatology 09/23/[address] [place] [address] 98 [place], [place] [phone] Johnnie Alcocer MD Surgeon General Surgery 03/23/17 [address] [facility] 300 [place], [place] [address] Danni Marcus, RN Personal Advocate & 01/09/1901/17 Liaison (PAL) Fernando, Ea Complex 04/23/19 Svetlana Osman, Pharmacist Pharmacotherapy 04/23/[address] [place] [address] Haylie Cheung, Pharmacist Pharmacist 09/11/[address] [place], [place] [phone] Jaiden Holcomb Assigned PCP 05/24/20 MD Jayesh 909 [place], [place] [address] Ruth John MD Assigned Infectious 01/29/21 07/03/21 [facility] INFECTIOUS Disease Provider [facility] [address] [place] [address] 245 [place] [address] Kajal Huggins MD Assigned Neuroscience 01/29/21 10/23/[address] [place] [address] [address] Provider [address] [place] [address] Patience Toussaint NP Assigned Surgical 01/29/21 02/11/22 2945 [facility] Provider [address] [place], [place] [phone] documented as of this encounter
--- OUTSIDE RECORDS SUMMARY | 2022-06-15 12:44 | XMS_ITS | Encounter Summary ---
:1945 Author Organization [place] Address [address] [place] [address] Care Team Providers Name Role Phone Chastity Montero MD Unavailable [phone] Johnnie Alcocer MD Unavailable Danni Marcus RN Unavailable Unavailable Mtm, Ea Complex Unavailable Unavailable Svetlana Osman [facility] Unavailable [phone] Haylie Cheung [facility] Unavailable [phone] Jaiden Holcomb MD Primary Care Provider Jaiden Holcomb MD Unavailable [phone] Ruth John MD Unavailable Kajal Huggins MD Unavailable Patience Toussaint NP Unavailable Reason for Referral Rehab Therapy Physical Therapy (Routine) - Closed Specialty Diagnoses / Procedures Referred By Contact Refer red To Contact Diagnoses Morbid obesity (H) Injury of sciatic nerve Left leg weakness Foot drop, left Jaiden Holcomb OTHER CENTER MD [facility] Not Listed [address] [place] [address] [place] [address] Referral ID Status Reason Start Date Expiration Date Visits Requ ested Visits Authorized [id number] Closed 05/05/2021 05/05/2022 1 1 Encounter Details Date Type Department Care Team Description 05/04/2021 Telephone [facility] Wilbur Holcomb MD [address] [address] [address] [place] [address] [phone] Social History Tobacco Use Types Packs/Day Years [...] Telephone Encounter - Jolanta Reddy RN - 05/05/2021 2:46 PM CDT Called Dhara with a verbal ok to start physical therapy. Jolanta Reddy RN Message handled by Nurse Triage. Telephone Encounter - Gisele Reed - 05/05/2021 2:27 PM CDT Dhara with [facility] left VM at 2:24pm Received orders for Physical therapy. They are not signed. Either need them signed or can take a verbal. Callback, Thank you Luis E Carreon Electroneurodiagnostic Technologist - Complex Care Team Telephone Encounter - Jolanta Reddy RN - 05/05/2021 1:10 PM CDT 1. Physical therapy referral: Called [facility]: they need a referral for physical therapy, they do have F2F notes, so none needed at this time. FAX: [phone]. Referral placed for HOME PT Referral for strengthening/balance and upper body development with knownleft sciatic nerve injury/foot drop. Referral was faxed. [facility] physical therapy team was notifiedthat the referral was faxed. They will call patient. They can see patient Monday if not sooner. 2. PAL visit next week and mammogram-will route to Luis E. Jolanta Reddy RN Message handled by Nurse Triage. Telephone Encounter - Jaiden Holcomb MD - 05/04/2021 11:06 AM CDT Patient will call our clinic back to schedule a PAL visit later this week or next week for Flu and Pfizer booster vaccines. She'll need to sign for an ENOC also for labs she's been getting at [place] the past 6 months. Mainly interested in CBC, CMP, and Iron/Ferritin labs. Messaging Luis E to also help schedule a mammogram. She would like to set up physical therapy through [facility] (where she currently has services for wound cares). Number she has to [facility] is [phone]. Will need to send of an order for her if they need one. Possible to follow up for her as well? Jaiden Holcomb MD Internal Medicine [facility] [place] documented in this encounter Plan of Treatment Upcoming Encounters Date Type Specialty Care Team Description 11/15/2022 Virtual Visit Pharm Haylie Gonzalez, [facility] 1440 [facility] [place] [phone] (Wo rk) 11/15/2022 Virtual Visit [place] [address] [place] [address] [place] [phone] (Wo rk) 03/03/2023 Virtual Visit Neurology Erlinda Barber MD 420 [facility] EMERGENCY DEPARTMENT 295 [place] [address] (Wo winter) Scheduled Referrals Name Type Priority Associated Diagnoses Order S chedule Physical Therapy Referral Routine: Next Morbid obesity -- Expec masood: Referral available opening BMI 55.6 05/05/2021 Injury of sciatic (Approxima te), nerve Expires: Left leg weaknes s 05/05/2022 Foot drop, left documented as of this encounter Visit Diagnoses Diagnosis Morbid obesity -- BMI 55.6 - Primary Morbid obesity 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 Left leg weakness Other musculoskeletal symptoms referable to limbs Foot drop, left Other acquired deformity of ankle and fo ot documented in this encounter Additional Health Concerns Assessment Noted Time PHQ-9 Depression Total Score: 4 04/12/2019 7:03 AM CDT documented as of this encounter Care Teams Manager Document Relationship Specialty Start Date End Date Jaiden Holcomb PCP - General Internal Medicine 02/13/2010/03 MD Jayesh [address] [place] [address] [place] [phone] Chastity Montero MD Dermatology 09/23/14 420 [facility] EMERGENC[facility] DEPARTMENT 98 [place] [address] Johnnie Alcocer MD Surgeon General Surgery 03/23/[address] [place], [place] [address] Danni Marcus, [place] Personal Advocate & 01/09/1901/17 Liaison (PAL) Fernando, Ea Complex 04/23/19 Svetlana Osman, Pharmacist Pharmacotherapy 04/23/19 [facility] [address] [place] [address] Haylie Cheung, Pharmacist Pharmacist 09/11/19 [facility] [address] [place] [address] Jaiden Holcomb Assigned PCP 05/24/20 MD Jayesh 909 [place] [address] Ruth John MD Assigned Infectious 01/29/21 07/03/21 [facility] INFECTIOUS Disease Provider [facility] [address] [place] [address] Kajal Huggins MD Assigned Neuroscience 01/29/21 10/23/[address] [place] [address] Provider [address] [place] [address] Patience Toussaint NP Assigned Surgical 01/29/21 02/11/22 2945 [facility] Provider [address] [place] [address] documented as of this encounter
--- OUTSIDE RECORDS SUMMARY | 2022-06-15 12:44 | XMS_ITS | Encounter Summary ---
:1945 Author Organization [place] Address [address] [place] [address] Care Team Providers Name Role Phone Chastity Montero MD Unavailable [phone] Johnnie Alcocer MD Unavailable Danni Marcus RN Unavailable Unavailable Mtm, Ea Complex Unavailable Unavailable Svetlana Osman [facility] Unavailable [phone] Haylie Cheung [facility] Unavailable [phone] Jaiden Holcomb MD Primary Care Provider [phone] Jaiden Holcomb MD Unavailable Ruth John MD Unavailable Kajal Huggins MD Unavailable Patience Toussaint NP Unavailable Reason for Visit Reason Onset Date Comments Orders 05/13/2021 PT Encounter Details Date Type Department Care Team Description 05/13/2021 Telephone [facility] Wilbur Holcomb Orders (PT) Yarelis Mcconnell MD [address] [address] [address] [place] [address] [phone] Social History Tobacco Use Types Packs/Day Years [...] Telephone Encounter - Jolanta Reddy RN - 05/13/2021 8:26 AM CDT Edwin physical therapist with [facility] calls for a verbal ok for orders to create plan of care. A verbal ok given. He can be reached at [phone]. Jolanta Reddy RN Message handled by Nurse Triage. documented in this encounter Plan of Treatment Upcoming Encounters Date Type Specialty Care Team Description 11/15/2022 Virtual Visit Pharm Haylie Gonzalez, [facility] [address] [facility] [place] [address] (Wo rk) 11/15/2022 Virtual Visit IM/Peds Yane Barraza MD 8378 [facility] [place] [address] (Wo rk) 03/03/2023 Virtual Visit Neurology Erlinda Barber MD 420 [facility] 295 [place] [address] (Wo rk) documented as of this encounter Visit Diagnoses Not on filedocumented in this encounter Additional Health Concerns Assessment Noted Time PHQ-9 Depression Total Score: 4 04/12/2019 7:03 AM CDT documented as of this encounter Care Teams Telesales Team Leader Relationship Specialty Start Date End Date Jaiden Holcomb PCP - General Internal Medicine 02/13/2010/03 MD Jayesh [address] [place] [address] [place] [address] Chastity Montero MD Dermatology 09/23/14 [place] 420 [facility] 98 [place], [place] [address] Johnnie Alcocer MD Surgeon General Surgery 03/23/17 [address] [facility] 300 [place], [place] [address] Danni Marcus, [place] Personal Advocate & 01/09/1901/17 Liaison (PAL) [place], Ea Complex 04/23/19 Svetlana Osman, Pharmacist Pharmacotherapy 04/23/19 [facility] [address] [place] [address] Haylie Cheung, Pharmacist Pharmacist 09/11/19 [facility] [address] [place] [address] Jaiden Holcomb Assigned PCP 05/24/20 MD Jayesh [address] [place] [address] Ruth John MD Assigned Infectious 01/29/21 07/03/21 [facility] INFECTIOUS Disease Provider [facility] [address] [facility] [address] [place] [address] Kajal Huggins MD Assigned Neuroscience 01/29/21 10/23/21 2945 [facility] Provider [address] [place] [address] Patience Toussaint NP Assigned Surgical 01/29/21 02/11/22 [facility]5 [facility] Provider [address] [place] [address] documented as of this encounter
--- OUTSIDE RECORDS SUMMARY | 2022-06-15 12:44 | XMS_ITS | Encounter Summary ---
:1945 Author Organization [facility] Address [address] [place] [address] Care Team Providers Name Role Phone Chastity Montero MD Unavailable [phone] Johnnie Alcocer MD Unavailable Danni Marcus RN Unavailable Unavailable Mtm, Ea Complex Unavailable Unavailable Svetlana Osman [facility] Unavailable [phone] Haylie Cheung [facility] Unavailable [phone] Jaiden Holcomb MD Primary Care Provider Jaiden Holcomb MD Unavailable Ruth John MD Unavailable Kajal Huggins MD Unavailable Patience Toussaint NP Unavailable Reason for Visit Reason Comments Medication Therapy Management Encounter Details Date Type Department Care Team Description 05/06/2021 Virtual Visit [facility] Haylie Cehung CEFERINO on CPAP (Primary Dx); Clinic Yarelis Rojas Sanjuanita Intermittent pain; [address] [facility] Essential hypertension, benign; [employer] [place] [address] Lymphedema of both lower extremities; [address] Hx Recurrent PE/DVT -- on [place] rfarin; [place] [id number] (Work) Iron deficiency anemia, unspecified iron deficiency anemia type; [phone] Seizure ( H); Eczema, unspeci fied type; Open wound; Takes dietary s upplements; Screening for o steoporosis; Vaccine counselor at law ing; Constipation, u nspecified constipation type Social History Tobacco Use Types Packs/Day Years [...] or relatives? How often do you attend buddhist or More than 4 times per year 05/03/2021 lutheran services? Do you belong to any clubs or No 05/03/2021 organizations such as buddhist groups, unions, fraternal or athletic groups, or [...] as of this encounter Patient Instructions Patient Haylie Alston, [facility] - 05/06/2021 2:00 PM CDT Recommendations from today's MTM visit: 1. We walked through how to ensure cuff fits appropriately on your forearm. please compare your cuffwith wound nurse manual checks or bring cuff to upcoming patient adovocate liaison (PAL) visit. 2. May hold probiotic at this time until on antibiotics again. 3. Transferred her to flume worker to get labs as well at your upcoming visit. Follow-up: Return in about 1 year (around 05/06/2022) for Medication Therapy Management Visit. It was great to speak with you today. I value your experience and would be very thankful for your time with providing feedback on our clinic survey. You may receive a survey via email or text message in the next few days. To schedule another MTM appointment, please call the clinic directly or you may call the MTM scheduling line at [phone] or toll-free at . My Clinical Pharmacist's contact information: Please feel free to contact me with any questions or concerns you have. Haylie Cheung, PharmVelma Medication Therapy Management Pharmacist Pager#: [phone] documented in this encounter Progress Notes Haylie Cheung RPH - 05/06/2021 2:00 PM CDT Images from the original note were not included. Medication Therapy Management (MTM) Encounter ASSESSMENT: Medication Adherence/Access: No issues identified CEFERINO: stable ?? Pain: stable ?? Hypertension/Lymphedema: BP today is NOT at goal < 140/90. Suggest she bring her home blood pressure cuff or compare with HC RN to check for accuracy. If elevated at patient adovocate liaison (PAL) visit suggest increasing losartan. Recurrent PE: INR at goal 2-3. ?? Anemia: stable Seizure: stable. ?? Eczema/Wound: Ct following with ID specialist recommendation of diet and supplements. Patient likelydoes not need probiotic given not on antibiotic therapy. ?? Supplements/Osteoporosis screening: patient likely benefits from repeat DEXA. Vaccines: candidate for high dose flu and booster (and Shingrix). Constipation: stable. PLAN: 1. Directed patient to check blood pressure on home cuff on her forearm. We also walked through how to ensure cuff fits appropriately on her forearm. I asked she compare the cuff with wound nurse manual checks or bring cuff to upcoming patient adovocate liaison (PAL) visit. 2. May hold probiotic at this time until on antibiotics. 3. Transferred her to for scheduling: also asked to add blood pressure check with upcoming patient adovocate liaison (PAL) immunization appointment. Lab patient is due per HIM BMP and microalbumin. Follow-up: Return in about 1 year (around 05/06/2022) for Medication Therapy Management Visit. SUBJECTIVE/OBJECTIVE: Charlette Brush is a 76 year old female called for a follow-up visit. She was referred to me from complex care team. Today's visit is a follow-up MTM visit from 04/30/20. First of 2020 Reason for visit: she saw an article yesterday about losartan recall. Allergies/ADRs: Reviewed in chart Past Medical History: Reviewed in chart Tobacco: She reports that she has never smoked. She has never used smokeless tobacco. Alcohol: not currently using Medication Adherence/Access: Patient takes medications directly from bottles which she prefers. Patient takes medications 3 time(s) per day - first this in the morning with a snack (eggs, fruit and milk), then with breakfast and supper The patient fills medications at [facility]: NO, fills medications at [facility]. ?? CEFERINO: She is using the CPAP at night. 7-9 hours of sleep per night with the CPAP on. She reports feeling well rested. Specialist: Dr. Joseph, Sleep Medicine. ?? Intermittent pain: Current medications include: acetaminophen 500mg/1 tablet at bedtime most days, but will take more if she goes to the wound clinic as this can cause her some mild-moderate pain. She feels this is effective, no concerns. ?? Hypertension/Lymphedema: Current medications include losartan 50mg every day AM, atenolol 25mg twicedaily. She reports she has been off of it hydrochlorothiazide since October-November. Saw lymphedema specialist in the past. Has lymphedema pump/tube that she wears every day which a home lead care manager helps her put on daily. Patient reports the following medication side effects: none Patient reports 150/90 at the wound center yesterday, but nurse check 126/70's. Wound nurse checked today and was 130/60's. Denies any hypertension symptoms. She tells me she did recently receive a blood pressure cuff and is not sure how to use it. I directed her over the telephone to the best of abilities of how to use the cuff and when she checked at two separate occasions by at least 30 mins apart blood pressure were 168/101 and 161/95. BP Readings from Last 3 Encounters: 05/03/21 (!) 172/97 12/04/20 116/80 10/21/20 (!) 146/82 Recurrent PE: Current medication is wafarin in the evening as directed by INR clinic. Per Dr. Felipe recommendation lifelong therapy. Denies any bleeding concerns. Has INR recheck planned for 05/20. Lab Results Component Value Date INR 2.2 05/06/2021 INR 2.1 04/23/2021 INR 1.8 04/16/2021 INR 1.9 04/09/2021 INR 2.2 03/26/2021 INR 2.4 03/16/2021 Anemia: Hx of iron deficiency induced anemia. Current medication is ferrous sulfate 325mg every other day with breakfast (along with vitamin C). Denies any side effects. Lab Results Component Value Date HGB 14.9 12/04/2020 IRON 59 04/23/2019 VIOLETTA 104 12/04/2020 B12 624 03/27/2020 FOLIC 18.9 03/09/2020 ?? Seizure: Current medication is levetiracetam 500mg twice a day. S/E: none. Denies any new seizures that patient is aware of. Specialist: Dr. Barber, Neurology. Recent follow-up no changes, will follow-up again in 1 year. Eczema/Wound: She had wound vac months ago but was removed. She also had 2 courses of antibiotics but not on any right now. She did see infectious disease recently and has a follow up again in June. She tolerated Augmentin and doxycycline this summer when treated with PO therapies which she was pleasantly surprised. She continues to go to wound clinic and wound nurses that assists with cares. Medications: cetirizine 10 mg twice daily (she reports for inflamed skin per flow machine operator), hydrocortisone 2.5% ointment PRN, triamcinoloine ointment as [...] 2012. Lab Results Component Value Date VITDT 58 12/04/2020 VITDT 54 01/01/2016 VITDT 63 12/30/2014 Vaccines: has upcoming patient adovocate liaison (PAL) visit for booster and flu shot already scheduled. Most Recent Immunizations Administered Date(s) Administered ??? COVID-19,PF,Pfizer 10/08/2020 ??? FLU 6-35 months 04/19/2010 ??? Influenza (High Dose) 3 valent vaccine 04/23/2019 ??? Influenza (IIV3) PF 04/26/2012 ??? Influenza, Quad, High Dose, Pf, 65yr+ (Fluzone HD) 04/30/2020 ? ? Pneumo Conj 13-V (2010&after) 12/30/2014 ??? Pneumococcal 23 valent 12/06/2011 ??? TD (ADULT, 7+) 08/27/2004 ??? TDAP Vaccine (Adacel) 12/30/2014 ??? Td (Adult), Adsorbed 08/27/2004 Constipation: docusate 100 mg daily as needed and bisacodyl as needed. No bowel movement concerns are this time. Variable due to diet per patient. Today's Vitals: There were no vitals taken for this visit. I spent 60 minutes with this patient today. All changes were made via collaborative practice agreement with Jaiden Holcomb MD. A copy of the visit note was provided to the patient's primary care provider. The patient was sent via [employer] a summary of these recommendations. Haylie Cheung PharmD Medication Therapy Management Pharmacist Pager#: [phone] Telemedicine Visit Details Type of service: Telephone visit Start Time: 1:50 PM End Time: 2:50 PM Originating Location (patient location): Home Distant Location (provider location): [facility] Medication Therapy Recommendations Takes dietary supplements Current Medication: Probiotic Product (PROBIOTIC PO) Rationale: No medical indication at this time - Unnecessary medication therapy - Indication Recommendation: Discontinue Medication - hold unless on abx therapy. Status: Accepted - no CPA Needed documented in this encounter Plan of Treatment Upcoming Encounters Date Type Specialty Care Team Description 11/15/2022 Virtual Visit Pharm D Haylie Cheung, [facility] [address] [facility] [address] [place] [id number] (Wo rk) 11/15/2022 Virtual Visit [place] [address] [place] [address] [place] [id number] (Wo rk) 03/03/2023 Virtual Visit Neurology Erlinda Barber MD [address] [facility] 295 [place] [address] (Wo rk) documented as of this encounter Visit Diagnoses Diagnosis CEFERINO on CPAP - Primary Obstructive sleep apnea (adult) (pediatr ic) Intermittent pain Generalized pain Essential hypertension, benign Lymphedema of both lower extremities 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 embolism Iron deficiency anemia, unspecified iron deficiency anemia type Seizure (H) Other convulsions Eczema, unspecified type Open wound Open wound(s) (multiple) of unspecified site(s), without mention of complication Takes dietary supplements Screening for osteoporosis Special screening for osteoporosis Vaccine counseling Constipation, unspecified constipation t ype documented in this encounter Additional Health Concerns Assessment Noted Time PHQ-9 Depression Total Score: 4 04/12/2019 7:03 AM CDT documented as of this encounter Care Teams Chemical Plant Technical Director Relationship Specialty Start Date End Date Jaiden Holcomb PCP - General Internal Medicine 02/13/2010/03 MD Jayesh [address] [facility] [address] [place] [id number] Chastity Montero MD Dermatology 09/23/14 [address] [facility] 98 [place] [address] Johnnie Alcocer MD Surgeon General Surgery 03/23/[address] [place] [address] Danni Marcus, RN Personal Advocate & 01/09/1901/17 Liaison (PAL) Kyle King Complex 04/23/19 Svetlana Osman, Pharmacist Pharmacotherapy 04/23/19 [facility] [address] [facility] [place] [address] Haylie Cheung, Pharmacist Pharmacist 09/11/19 [facility] [address] [facility] [place] [address] Jaiden Holcomb Assigned PCP 05/24/20 MD Jayesh [address] [place] [id number] Ruth John MD Assigned Infectious 01/29/21 07/03/21 [facility] INFECTIOUS Disease Provider [facility] [address] [place] [address] [address] [place] [address] Kajal Huggins MD Assigned Neuroscience 01/29/21 10/23/[address] [place] [address] Provider [address] [place] [address] Patience Toussaint NP Assigned Surgical 01/29/21 02/11/22 2945 [facility] Provider [address] [place], [place] [phone] documented as of this encounter
--- OUTSIDE RECORDS SUMMARY | 2022-06-15 12:44 | XMS_ITS | Encounter Summary ---
:1945 Author Organization [facility] Address [address] [place] [address] Care Team Providers Name Role Phone Chastity Montero MD Unavailable [phone] Johnnie Alcocer MD Unavailable Danni Marcus RN Unavailable Unavailable Mt, Ea Complex Unavailable Unavailable Svetlana Osman [facility] Unavailable [phone] Haylie Cheung [facility] Unavailable [phone] Jaiden Holcomb MD Primary Care Provider Jaiden Holcomb MD Unavailable Ruth John MD Unavailable Kajal Huggins MD Unavailable Patience Toussaint NP Unavailable Encounter Details Date Type Department Care Team Description 05/04/2021 Telephone [facility] Wilbur Holcomb MD [address] [address] [address] [place] [address] [phone] Social History Tobacco Use Types Packs/Day Years [...] More than 4 times per year 05/03/2021 latter-day services? 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 documented as of this encounter Miscellaneous Notes Telephone Encounter - Gisele Reed - 05/06/2021 3:09 PM CDT Patient would like to wait closer to when due for follow up in 4 months (due mid August), call herin July. Scheduled mammogram 06/03/2021 Scheduled Lab and PAL Visit 05/13/2021 Thank you Luis E Carreon Venue Manager - Complex Care Team Telephone Encounter - Gisele Reed - 05/06/2021 9:07 AM CDT Sent [employer] DTS-chart message to patient. Thank you Luis E Carreon Venue Manager - Complex Care Team Telephone Encounter - Jaiden Holcomb MD - 05/04/2021 11:04 AM CDT Patient will need follow up again in 4 months (video or inperson). She will also need scheduling for mammogram (ordered). She will call back to set up a PAL RN visit for Influenza and Pfizer/COVID19 booster. Mentions her aids come back between 9am-12pm and likely during this time. Jaiden Holcomb MD Internal Medicine [facility] [place] documented in this encounter Plan of Treatment Upcoming Encounters Date Type Specialty Care Team Description 11/15/2022 Virtual Visit Pharm D Haylie Cheung, [facility] [address] [facility] [place] [id number] (Wo rk) 11/15/2022 Virtual Visit IM/Yane Mathias MD [address] [place] [address] [place] [id number] (Wo rk) 03/03/2023 Virtual Visit Neurology Erlinda Barber MD [address] [place] [address] [address] [place], [place] [phone] (Wo rk) documented as of this encounter Visit Diagnoses Not on filedocumented in this encounter Additional Health Concerns Assessment Noted Time PHQ-9 Depression Total Score: 4 04/12/2019 7:03 AM CDT documented as of this encounter Care Teams Saw Feeder Relationship Specialty Start Date End Date Jaiden Holcomb PCP - General Internal Medicine 02/13/2010/03 MD Jayesh [address] [place] [address] [place] [address] Chastity Montero MD Dermatology 09/23/[address] [place] [address] 98 [place], [place] [phone] Johnnie Alcocer MD Surgeon General Surgery 03/23/17 [address] [facility] [address] [place], [place] [address] Danni Marcus, RN Personal Advocate & 01/09/1901/17 Liaison (PAL) Mtkinsey, Ea Complex 04/23/19 Svetlana Osman, Pharmacist Pharmacotherapy 04/23/19 [facility] [address] [place] [address] Haylie Cheung, Pharmacist Pharmacist 09/11/19 [facility] [address] [place] [address] Jaiden Holcomb Assigned PCP 05/24/20 MD Jayesh 9[address] [place] [address] Ruth John MD Assigned Infectious 01/29/21 07/03/21 [facility] INFECTIOUS Disease Provider [facility] [address] [place] [address] [address] [place], [place] [phone] Kajal Huggins MD Assigned Neuroscience 01/29/21 10/23/21 [address] [facility] SU[address] Provider [address] [place] [address] Patience Toussaint NP Assigned Surgical 01/29/21 02/11/22 29[address] [facility] Provider [address] [place] [address] documented as of this encounter
--- OUTSIDE RECORDS SUMMARY | 2022-06-15 12:44 | XMS_ITS | Encounter Summary ---
:1945 Author Organization [facility] Address [address] [place] [address] Care Team Providers Name Role Phone Chastity Montero MD Unavailable [phone] Johnnie Alcocer MD Unavailable Danni Marcus RN Unavailable Unavailable Mtm, Ea Complex Unavailable Unavailable Svetlana Osman [facility] Unavailable [phone] Haylie Cheung [facility] Unavailable [phone] Jaiden Holcomb MD Primary Care Provider [phone] Jaiden Holcomb MD Unavailable [phone] Ruth John MD Unavailable Kajal Huggins MD Unavailable Patience Toussaint NP Unavailable Encounter Details Date Type Department Care Team Description 05/06/2021 Anticoagulation Therapy [facility] 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 embolism (Primary Dx); Visit Clinic Yarelis Hwang shelter current use of ant icoagulant therapy; [address] MD Jayesh Paroxysmal atrial fibrillation (H) [address] [address] Social History Tobacco Use Types Packs/Day [...] encounter Progress Notes Sasha Rueda RN - 05/06/2021 12:49 PM CDT ANTICOAGULATION MANAGEMENT Charlette Carreon Trudi 76 year old female is on warfarin with therapeutic INR result. (Goal INR 2.0-3.0) Recent labs: (last 7 days) 05/06/21 1250 INR 2.2* ASSESSMENT Source(s): Chart Review and Home Care/Facility Nurse ??? Warfarin doses taken: Warfarin taken as instructed ??? Diet: No new diet changes identified ??? New illness, injury, or hospitalization: No ??? Medication/supplement changes: None noted ??? Signs or symptoms of bleeding or clotting: No ??? Previous INR: Therapeutic last 2(+) visits ??? Additional findings: Wound care 3 days per week PLAN Recommended plan for no diet, medication or health factor changes affecting INR Dosing Instructions: Continue your current warfarin dose with next INR in 2 weeks Summary As of 05/06/2021 Full warfarin instructions: 10 mg every day Next INR check: Telephone call with Home care Nurse Galdino who verbalizes understanding and agrees to plan Orders given to Homecare nurse/facility to recheck Education provided: Please call back if any changes to your diet, medications or how you've been taking warfarin Plan made per [facility] anticoagulation protocol Sasha Rueda RN Anticoagulation Clinic 05/06/2021 Anticoagulation Episode Summary Current INR goal: 2.0-3.0 TTR: 74.6 % (1 y) Target end date: Indefinite Send INR reminders to: [facility] Indications 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] 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 [Z79.01] Paroxysmal atrial fibrillation (H) [I48.0] Comments: Anticoagulation Care Providers Provider Role Specialty Phone number Galdino Valdez MD Referring Family Medicine [phone] Jaiden Holcomb MD Referring Internal Medicine [phone] Lucero Stevenson MD Responsible Internal Medicine [phone] documented in this encounter Plan of Treatment Upcoming Encounters Date Type Specialty Care Team Description 11/15/2022 Virtual Visit Pharm Haylie Gonzalez, [facility] [address] [facility] [place] [address] (Lena max) 11/15/2022 Virtual Visit IM/Yane Mathias MD [address] [facility] [place] [address] (Lena max) 03/03/2023 Virtual Visit Neurology Erlinda Barber MD [address] [facility] 295 [place] [address] (Wo rk) documented as of this encounter Procedures Procedure Name Priority Date/Time Associated Diagnosis Comme nts INR (EXTERNAL Routine 05/06/2021 12:50 PM Results for this RESULT) CDT procedure are i n the results section. documented in this encounter Results (ABNORMAL) INR (External Result) (05/06/2021 12:50 PM CDT) P athologist Signature INR (External) 2.2 (A) 0.9 - 1.1 EXTERNAL LAB Specimen (Source) Anatomical Collection Method Collection Time Re ceived Time Location / / Volume Laterality Blood 05/06/2021 12:50 PM CDT Resulting Agency Comment Home Care Patient Reported LAB - HIM EXTERNAL RESULT Performing Organization Address City/State/ZIP Code Phon e Number EXTERNAL LAB EXTERNAL LAB External Lab documented in this encounter Visit Diagnoses Diagnosis 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 embolism - Primary shelter current use of anticoagulant t herapy Paroxysmal atrial fibrillation (H) Atrial fibrillation documented in this encounter Additional Health Concerns Assessment Noted Time PHQ-9 Depression Total Score: 4 04/12/2019 7:03 AM CDT documented as of this encounter Care Teams Family Dinner Service Specialist Relationship Specialty Start Date End Date Jaiden Holcomb PCP - General Internal Medicine 02/13/2010/03 MD Jayesh [address] [facility] [address] [place], [place] [phone] Chastity Montero MD Dermatology 09/23/14 [address] [facility] 98 [place], [place] [address] Johnnie Alcocer MD Surgeon General Surgery 03/23/[address] [place], [place] [address] Danni Marcus, CHANDLER Personal Advocate & 01/09/1901/17 Liaison (PAL) Fernando, Kyle Complex 04/23/19 Svetlana Osman, Pharmacist Pharmacotherapy 04/23/19 [facility] [address] [facility] [address] [place], [place] [phone] Haylie Cheung, Pharmacist Pharmacist 09/11/19 [facility] [address] [facility] [place] [address] Jaiden Holcomb Assigned PCP 05/24/20 MD Jayesh 909 [place] [address] Ruth John MD Assigned Infectious 01/29/21 07/03/21 [facility] INFECTIOUS Disease Provider [facility] [address] [place] [address] 245 [place] [address] Kajal Huggins MD Assigned Neuroscience 01/29/21 10/23/21 2945 [facility] Provider [address] [place] [address] Patience Toussaint NP Assigned Surgical 01/29/21 02/11/22 2945 [facility] Provider [address] [place] [address] documented as of this encounter
--- OUTSIDE RECORDS SUMMARY | 2022-06-15 12:44 | XMS_ITS | Encounter Summary ---
:1945 Author Organization Jean Address [address] [place] [address] Care Team Providers Name Role Phone Chastity Montero MD Unavailable [phone] Johnnie Alcocer MD Unavailable Danni Marcus RN Unavailable Unavailable Mtm, Ea Complex Unavailable Unavailable Svetlana Osman [facility] Unavailable [phone] Haylie Cheung [facility] Unavailable [phone] Jaiden Holcomb MD Primary Care Provider [phone] Jaiden Holcomb MD Unavailable Ruth John MD Unavailable Kajal Huggins MD Unavailable Patience Toussaint NP Unavailable Reason for Referral Consultation (Routine) - Closed Specialty Diagnoses / Procedures Referred By Contact Refer red To Contact Wound Care Diagnoses Non-healing wound of lower extremity, initial encounter Brook Sánchez MD [facility] [address] [facility] [address] [place], [place] [address] [address] [place] [address] Phone: Fax: Referral ID Status Reason Start Date Expiration Date Visits Requ ested Visits Authorized [id number] Closed 05/27/2021 05/27/2022 1 1 ET SLITTER Encounter Details Date Type Department Care Team Description 05/27/2021 Orders Only [facility] Nabil Donna G, Non -healing wound of Infectious Disease RN amrit ext [facility] initial encounter [address] [facility] (Primary Dx) [place] [address] Social History Tobacco Use Types Packs/Day [...] with No / Unsure 05/25/2021 3:45 PM GULLET SLITTER someone who was confirmed or suspected to have Coronavirus / COVID-19? documented as of this encounter Plan of Treatment Upcoming Encounters Date Type Specialty Care Team Description 11/15/2022 Virtual Visit Haylie Wakefield, [facility] [address] [place], [place] [id number] (Wo rk) 11/15/2022 Virtual Visit IM/PedYane Muir MD [address] [place] [address] [place] [address] (Wo rk) 03/03/2023 Virtual Visit Neurology Erlinda Barber MD [address] [facility] [address] [place], [place] [address] (Wo rk) Scheduled Referrals Name Type Priority Associated Diagnoses Order S chedule Wound Care Referral Referral Routine: Next Non-healing wound of Expected: available opening lower extremity, 2020 initial encounter (Approxima te), Expires: 05/27/2022 documented as of this encounter Visit Diagnoses Diagnosis Non-healing wound of lower extremity, in itial encounter - Primary documented in this encounter Additional Health Concerns Assessment Noted Time PHQ-9 Depression Total Score: 4 04/12/2019 7:03 AM CDT documented as of this encounter Care Teams Dining Room Host Relationship Specialty Start Date End Date Jaiden Holcomb PCP - General Internal Medicine 02/13/2010/03 MD Jayesh [address] [place] [address] [place] [address] Chastity Montero MD Dermatology 09/23/[address] [place] [address] [address] [place], [place] [address] Johnnie Alcocer MD Surgeon General Surgery 03/23/17 [address] [place], [place] [address] Danni Marcus, CHANDLER Personal Advocate & 01/09/1901/17 Liaison (PAL) Mtkinsey, Ea Complex 04/23/19 Svetlana Osman, Pharmacist Pharmacotherapy 04/23/19 [facility] [address] [place] [address] Haylie Cheung, Pharmacist Pharmacist 09/11/19 [facility] [address] [place] [id number] Jaiden Holcomb Assigned PCP 05/24/20 MD Jayesh [address] [place] [address] Ruth John MD Assigned Infectious 01/29/21 07/03/21 [facility] INFECTIOUS Disease Provider [facility] [address] [place] [address] [address] [place] [address] Kajal Huggins MD Assigned Neuroscience 01/29/21 10/23/21 [address] [facility] SU[address] Provider [address] [place] [address] Patience Toussaint NP Assigned Surgical 01/29/21 02/11/22 [address]45 [facility] Provider [address] [place] [address] documented as of this encounter
--- OUTSIDE RECORDS SUMMARY | 2022-06-15 12:44 | XMS_ITS | Encounter Summary ---
:1945 Author Organization [place] Address [address] [place] [address] Care Team Providers Name Role Phone Chastity Montero MD Unavailable [phone] Johnnie Alcocer MD Unavailable Danni Marcus RN Unavailable Unavailable Mtm, Ea Complex Unavailable Unavailable Svetlana Osman [facility] Unavailable [phone] Haylie Cheung [facility] Unavailable [phone] Jaiden Holcomb MD Primary Care Provider Jaiden Holcomb MD Unavailable Ruth John MD Unavailable Kajal Huggins MD Unavailable Patience Toussaint NP Unavailable Encounter Details Date Type Department Care Team Description 04/23/2021 Anticoagulation Therapy [facility] Zhang 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 embolism (Primary Dx); Visit Clinic 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 (Goal INR 2.0-3.0) Recent labs: (last 7 days) 04/23/21 1258 INR 2.1* ASSESSMENT Source(s): Chart Review and [...] INR in 2 weeks Summary As of 04/23/2021 Full warfarin instructions: 10 mg every day Next INR check: Telephone call with home care nurse Galdino who verbalizes understanding and agrees to plan Orders given to Homecare nurse/facility to recheck Education provided: Please call back if any changes to your diet, medications or how you've been taking warfarin Plan made per [facility] anticoagulation protocol Fadumo Davies RN Anticoagulation Clinic 04/23/2021 Anticoagulation Episode Summary Current INR goal: 2.0-3.0 TTR: 74.6 % (1 y) Target end date: Indefinite Send INR reminders to: [facility] Indications 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] 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 [Z79.01] Paroxysmal atrial fibrillation (H) [I48.0] Comments: Anticoagulation Care Providers Provider Role Specialty Phone number Galdino Valdez MD Referring Family Medicine [phone] Jaiden Holcomb MD Referring Internal Medicine [phone] Lucero Stevenson MD Responsible Internal Medicine [phone] documented in this encounter Plan of Treatment Upcoming Encounters Date Type Specialty Care Team Description 11/15/2022 Virtual Visit Pharm Haylie Gonzalez, [facility] [address] [place] [address] (Lena max) 11/15/2022 Virtual [place] [address] [place] [address] [place] [address] (Lena max) 03/03/2023 Virtual Visit Neurology Erlinda Barber MD [address] [facility] [address] [place], [place] [address] (Lena max) documented as of this encounter Procedures Procedure Name Priority Date/Time Associated Diagnosis Comme nts INR (EXTERNAL Routine 04/23/2021 12:58 PM Results for this RESULT) CDT procedure are i n the results section. 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 Paroxysmal atrial fibrillation (H) Atrial fibrillation documented in this encounter Additional Health Concerns Assessment Noted Time PHQ-9 Depression Total Score: 4 04/12/2019 7:03 AM CDT documented as of this encounter Care Teams Academic Dean Relationship Specialty Start Date End Date Jaiden Holcomb PCP - General Internal Medicine 02/13/2010/03 MD Jayesh [address] [place], [place] [phone] Chastity Montero MD Dermatology 09/23/14 [address] [facility] 98 [place], [place] [address] Johnnie Alcocer MD Surgeon General Surgery 03/23/17 [address] [facility] [address] [place], [place] [phone] Danni Marcus, CHANDLER Personal Advocate & 01/09/1901/17 Liaison (PAL) Mtkinsey, Ea Complex 04/23/19 Svetlana Osman, Pharmacist Pharmacotherapy 04/23/19 [facility] [address] [place] [address] Haylie Cheung, Pharmacist Pharmacist 09/11/19 [facility] [address] [place] [phone] Jaiden Holcomb Assigned PCP 05/24/20 MD Jayesh [address] [place] [address] Ruth John MD Assigned Infectious 01/29/21 07/03/21 [facility] INFECTIOUS Disease Provider [facility] [address] [place] [address] 245 [place] [address] Kajal Huggins MD Assigned Neuroscience 01/29/21 10/23/21 2945 [facility] Provider [address] [place] [address] Patience Toussaint NP Assigned Surgical 01/29/21 02/11/22 [address]45 [facility] Provider [address] [place] [address] documented as of this encounter
--- OUTSIDE RECORDS SUMMARY | 2022-06-15 12:44 | XMS_ITS | Encounter Summary ---
:1945 Author Organization [place] Address [address] [place] [address] Care Team Providers Name Role Phone Chastity Montero MD Unavailable [phone] Johnnie Alcocer MD Unavailable Danni Marcus RN Unavailable Unavailable Mtm, Ea Complex Unavailable Unavailable Svetlana Osman [facility] Unavailable [phone] Haylie Cheung [facility] Unavailable [phone] Jaiden Holcomb MD Primary Care Provider Jaiden Holcomb MD Unavailable Ruth Jonh MD Unavailable Kajal Huggins MD Unavailable Patience Toussaint NP Unavailable Encounter Details Date Type Department Care Team Description 04/16/2021 Anticoagulation Therapy [facility] Do oscar Holcomb Visit Clinic Yarelis Mcconnell MD [address] [address] [place] [address] Social History Tobacco Use [...] 05/03/2021 organizations such as religious groups, unions, fraGoGoPin or athletic groups, or school groups? How [...] documented as of this encounter Progress Notes Huong Mensah RN - 04/16/2021 1:49 PM CDT ANTICOAGULATION MANAGEMENT Charlette Brush 76 year old female is on warfarin with subtherapeutic INR result. (Goal INR 2.0-3.0) Recent labs: (last 7 days) 04/16/21 1300 INR 1.8* ASSESSMENT Source(s): Chart Review and Home Care/Facility Nurse ??? Warfarin doses taken: Warfarin taken as instructed ??? Diet: No new diet changes identified ??? New illness, injury, or hospitalization: No ??? Medication/supplement changes: None noted ??? Signs or symptoms of bleeding or clotting: No ??? Previous INR: Subtherapeutic ??? Additional findings: None PLAN Recommended plan for ongoing change(s) affecting INR Dosing Instructions: Increase your warfarin dose (7.7% change) with next INR in 1 week Summary As of 04/16/2021 Full warfarin instructions: 10 mg every day Next INR check: 04/23/2021 Telephone call with home care nurse Galdino ([phone]) who agrees to plan and repeated back plan correctly Orders given to Homecare nurse/facility to recheck Education provided: Importance of notifying clinic for changes in medications; a sooner lab recheck maybe needed. and Contact [phone] with any changes, questions or concerns. 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] longterm current use of 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 [Z79.01] Paroxysmal atrial fibrillation (H) [I48.0] Comments: Anticoagulation Care Providers Provider Role Specialty Phone number Galdino Valdez MD Referring Family Medicine [phone] Jaiden Holcomb MD Referring Internal Medicine [phone] Lucero Stevenson MD Responsible Internal Medicine [phone] documented in this encounter Plan of Treatment Upcoming Encounters Date Type Specialty Care Team Description 11/15/2022 Virtual Visit Pharm Haylie Gonzalez, [facility] [address] [facility] [place] [address] (Lena max) 11/15/2022 Virtual Visit [place] [address] [place] [address] [place] [address] (Lena max) 03/03/2023 Virtual Visit Neurology Erlinda Barber MD 420 [facility] 295 [place] [address] (Lena max) documented as of this encounter Procedures Procedure Name Priority Date/Time Associated Diagnosis Comme nts INR (EXTERNAL Routine 04/16/2021 1:00 PM Results for this RESULT) CDT procedure are i n the results section. documented in this encounter Results (ABNORMAL) INR (External Result) (04/16/2021 1:00 PM CDT) P athologist Signature INR (External) 1.8 (A) 2 - 3 EXTERNAL LAB Specimen (Source) Anatomical Collection Method Collection Time Re ceived Time Location / / Volume Laterality Blood 04/16/2021 1:00 PM CDT Patient Reported LAB - HIM EXTERNAL RESULT Performing Organization Address City/State/ZIP Code Phon e Number EXTERNAL LAB EXTERNAL LAB External Lab documented in this encounter Visit Diagnoses Not on filedocumented in this encounter Additional Health Concerns Assessment Noted Time PHQ-9 Depression Total Score: 4 04/12/2019 7:03 AM CDT documented as of this encounter Care Teams Engineer Fishing Vessel Relationship Specialty Start Date End Date Jaiden Holcomb PCP - General Internal Medicine 02/13/2010/03 MD Jayesh [address] [facility] [address] Chastity Montero MD Dermatology 09/23/14 420 [facility] 98 [place] [address] Johnnie Alcocer MD Surgeon General Surgery 03/23/17 [address] [facility] [address] [place], [place] [address] Danni Marcus, CHANDLER Personal Advocate & 01/09/1901/17 Liaison (PAL) Mtkinsey, Ea Complex 04/23/19 Svetlana Osman, Pharmacist Pharmacotherapy 04/23/19 [facility] [address] [place] [address] Haylie Cheung, Pharmacist Pharmacist 09/11/19 [facility] [address] [place] [address] Jaiden Holcomb Assigned PCP 05/24/20 MD Jayesh [address] [place] [id number] Ruth John MD Assigned Infectious 01/29/21 07/03/21 [facility] INFECTIOUS Disease Provider [facility] [address] [place] [address] [address] [place] [address] Kajal Huggins MD Assigned Neuroscience 01/29/21 10/23/21 [address] [facility] [address] Provider [address] [place] [address] Patience Toussaint NP Assigned Surgical 01/29/21 02/11/22 2945 [facility] Provider [address] [place], [place] [id number] documented as of this encounter
--- OUTSIDE RECORDS SUMMARY | 2022-06-15 12:44 | XMS_ITS | Encounter Summary ---
:1945 Author Organization [facility] Address [address] [place] [address] Care Team Providers Name Role Phone Chastity Montero MD Unavailable [phone] Johnnie Alcocer MD Unavailable Danni Marcus RN Unavailable Unavailable Mtm, Ea Complex Unavailable Unavailable Svetlana Osman [facility] Unavailable [phone] Haylie Cheung [facility] Unavailable [phone] Jaiden Holcomb MD Primary Care Provider [phone] Jaiden Holcomb MD Unavailable Ruth John MD Unavailable Kajal Huggins MD Unavailable Patience Toussaint NP Unavailable Reason for Visit Reason Comments Seizures Wounds Weight Problem Encounter Details Date Type Department Care Team Description 05/04/2021 Virtual Visit [facility] Jaiden Holcomb Seiz ure (H) (Primary Dx); Clinic Yarelis Mcconnell MD Morbid obesity -- BMI 55.6; [address] [place] [place] [address] Pressure injury of left buttock, stage 4 (H); [place], [place] Encounter for screening mamm ogram for breast cancer; [address] [address] Pain; [place] [address] Left leg weakness Social History Tobacco Use [...] as of this encounter Patient Instructions Patient InstructionsDanni Marcus RN - 05/04/2021 10:00 AM CDT Recommendations from today's Complex Care Team visit: Thank you for participating in our complex care team visit today! 1. Call our clinic back ([phone]) once you know when your aid is available to bring you by the clinic for Influenza and Pfizer/COVID19 booster. 2. At call back, may schedule follow up in 4 months and mammogram for follow up as well. 3. Call eye clinic ([phone]) to follow up for eye exam. 4. At follow up with Dr. Holcomb' nurse, please sign a Release of Information (ENOC) to obtain labs from [facility] in the past 6 months. Mainly interested in labs for complete cell count (CBC), comprehensive metabolic panel (CMP) and iron labs (Ferritin or Iron panel). 5. Will have Dr. Holcomb' nurse follow up for Physical therapy possibly through [facility]. 5. Keep follow up with pharmacy (MT) on . Next care team visit: Follow up in 4 months (can be video or in person) Please feel free to contact us with any questions or concerns you have. You may reach the complex care team directly at [phone]. Please feel free to leave a voicemail if we are not available and we will return your call as soon as possible. My Care Team Members Dr. Jaiden Holcomb Nurse PAL(s) Genevieve MTM (medication therapy management) is a service provided by a clinical pharmacist designed to help you get the most of out of your medicines. My Clinical Pharmacist's contact information: Haylie Cheung It was great to speak with you today. I value your experience and would be very thankful for your time with providing feedback on our clinic survey. You may receive a survey via email or text message in the next few days. documented in this encounter Progress Notes Jaiden Holcomb MD - 05/04/2021 10:00 AM CDT Assessment/Plan Problem List Items Addressed This Visit Nervous and Auditory Seizure (H) - Primary -no recent seizures, had one seizure in 2019. Recently saw neurology, follow up again in 1 year. -continued on Keppra 500mg BID. 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 Also has left drop foot. -Uses walkers (4 wheel and 2 wheel) to ambulate. -Will have CHANDLER GATES call [facility] for physical therapy for patient. Relevant Medications acetaminophen (TYLENOL) 325 MG tablet Pain Relevant Medications acetaminophen (TYLENOL) 325 MG tablet Digestive Morbid obesity -- BMI 55.6 Musculoskeletal and Integumentary Pressure injury of left buttock, stage 4 (H) -Hx of prolonged time on the floor in 2018 with development of necrotizing fasciitis. Has surgery and has sciatic nerve injury. Continues with wound cares. Has wound vac earlier this year and now discontinued. Recent MRI of several months again at [facility], per [facility] notes no OM noted. Relevant Medications acetaminophen (TYLENOL) 325 MG tablet Other Visit Diagnoses Encounter for screening mammogram for breast cancer Relevant Orders *MA Screening Digital Bilateral No results found for any visits on 05/04/21. Health Maintenance Due Topic Date Due ??? ZOSTER IMMUNIZATION (1 of 2) Never done ??? ANNUAL REVIEW OF HM ORDERS 12/27/2019 ??? MAMMO SCREENING 12/27/2019 ??? MEDICARE ANNUAL WELLNESS VISIT 01/10/2020 ??? MICROALBUMIN 02/08/2020 ??? FALL RISK ASSESSMENT 07/22/2020 ??? INFLUENZA VACCINE (1) 03/17/2021 ??? BMP 03/28/2021 Video -Visit Details Type of service: Video Visit Video Start Time: 10:01am Video End Time: 10:38am Originating Location (pt. Location): Home Distant Location (provider location): [facility] Platform used for Video Visit: Chas Magana The patient mentions she is doing well. She had wound vac months ago but was removed. She also had 2courses of antibiotics but not any right now. She did see infectious disease yesterday and has a follow up again in June. The infectious disease doctor was going to follow up recent results of an MRI to her left buttock area. Per notes, mentions on osteomyelitis noted. The patient mentions she does get labs once in a while from [facility] (not seen in Care Everywhere). Continues with left leg weakness. She continues to use a walker to walk around. Mentions she can't take her 4 wheel walker in her car as it would need to be broken down. She does have a 2 wheeled walker she can fold up though. She does mention she will need to follow up with her eye doctor, Dr. German, as she's had some blurred visit with cataracts. She also would like to do a mammogram again. Lastly, she is interested in getting a Flu and Pfizer booster. She is not sure the days her aid willbe by the rest of the week. Mentions when she knows, she can call to set up an appointment to have boosters at the clinic. Review of Systems Constitutional: Negative for chills and fever. HENT: Negative for ear pain, rhinorrhea, sore throat and trouble swallowing. Eyes: Positive for visual disturbance. Respiratory: Negative for shortness of breath. Cardiovascular: Negative for chest pain. Gastrointestinal: Negative for abdominal pain, constipation and diarrhea. Genitourinary: Negative for dysuria. Skin: Positive for wound. Neurological: Positive for weakness. Negative for headaches. History Past Medical History: Diagnosis Date ??? [...] Patient has appointment with Retina Specialist at [facility] on 01/11. 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 ??? Morbid obesity (H) ??? Myopia 07/15/2010 ??? Necrotizing fasciitis (H) 10/28/2017 ??? Necrotizing soft tissue infection debridement 10/18/17 ??? 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 Obese ??? CEFERINO (obstructive sleep apnea) nightly CPAP ??? Other lymphedema 11/04/2003 ??? Paroxysmal [...] Referral placed for Dr. Kajal Huggins at [facility] in [place] per patient request. She has contact i [...] ??? Sleep apnea CPAP at night ??? Vitamin D deficiency 11/23/2011 Overview: (Problem list name updated by automated process. Provider to review and confirm.) ??? Weakness left lower limb ??? Wound, open coccyx L Past Surgical History: Procedure Laterality Date ??? CATARACT IOL, RT/LT Bilateral 2019 [facility] ??? CHOLECYSTECTOMY ??? CHOLECYSTECTOMY, OPEN 1969 ??? COLONOSCOPY N/A 01/13/2015 Procedure: COLONOSCOPY; Surgeon: [...] LENS IMPLANTATION; Surgeon: Bernabe Crespo MD; Location: [facility] ??? PHACOEMULSIFICATION CLEAR CORNEA WITH STANDARD INTRAOCULAR [...] no vitals taken for this visit. Vitals not taken due to this being a video visit. Physical Exam Constitutional: General: She is not in acute distress. Appearance: She is not ill-appearing or toxic-appearing. Pulmonary: Effort: Pulmonary effort is normal. Neurological: Mental Status: She is alert. Psychiatric: Mood and Affect: Mood normal. Thought Content: Thought content normal. Limited exam due to video visit I spent greater than 50% of the 37 minutes in the visit coordinating care regarding patient's recommendations towards chronic updates Return in about 4 months (around 09/04/2021) for MTM follow up every 6 months. Patient's support system: Daughter Jaiden oHlcomb MD [facility] documented in this encounter Miscellaneous Notes Assessment & Plan Note - Jaiden Holcomb MD - 05/04/2021 11:12 AM CDT Associated Problem(s): Pressure injury of left buttock, stage 4 (H) (Resolved 10/09/2021) -Hx of prolonged time on the floor in 2018 with development of necrotizing fasciitis. Has surgery and has sciatic nerve injury. Continues with wound cares. Has wound vac earlier this year and now discontinued. Recent MRI of several months again at [facility], per [facility] notes no OM noted. Assessment & Plan Note - Jaiden Holcomb MD - 05/04/2021 11:11 AM CDT Associated Problem(s): Seizure (H) -no recent seizures, had one seizure in 2019. Recently saw neurology, follow up again in 1 year. -continued on Keppra 500mg BID. 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 Also has left drop foot. -Uses walkers (4 wheel and 2 wheel) to ambulate. -Will have RN KODY call [facility] for physical therapy for patient. documented in this encounter Plan of Treatment Upcoming Encounters Date Type Specialty Care Team Description 11/15/2022 Virtual Visit Pharm Haylie Gonzalez, [facility] [address] [facility] [place] [address] (Wo winter) 11/15/2022 Virtual Visit IM/PedYane Muir MD [address] [facility] [place] [address] (Lena max) 03/03/2023 Virtual Visit Neurology Erlinda Barber MD [address] [facility] [address] [place], [place] [phone] (Lena max) documented as of this encounter Visit Diagnoses Diagnosis Seizure (H) - Primary Other convulsions Morbid obesity -- BMI 55.6 Morbid obesity Pressure injury of left buttock, stage 4 (H) Encounter for screening mammogram for br east cancer Pain Generalized pain Left leg weakness Other musculoskeletal symptoms referable to limbs documented in this encounter Additional Health Concerns Assessment Noted Time PHQ-9 Depression Total Score: 4 04/12/2019 7:03 AM CDT documented as of this encounter Care Teams Cloth Reeler Relationship Specialty Start Date End Date Jaiden Holcomb PCP - General Internal Medicine 02/13/2010/03 MD Jayesh [address] [facility] [address] Chastity Montero MD Dermatology 09/23/14 [address] [facility] [address] [place] [address] Johnnie Alcocer MD Surgeon General Surgery 03/23/[address] [place] [address] Danni Marcus, CHANDLER Personal Advocate & 01/09/1901/17 Liaison (PAL) Fernando, Ea Complex 04/23/19 Svetlana Osman, Pharmacist Pharmacotherapy 04/23/19 [facility] [address] [facility] [place] [address] Haylie Cheung, Pharmacist Pharmacist 09/11/19 [facility] [address] [facility] [address] [facility] [address] [place], [place] [id number] Jaiden Holcomb Assigned PCP 05/24/20 MD Jayesh [address] [place], [place] [address] Ruth John MD Assigned Infectious 01/29/21 07/03/21 [facility] INFECTIOUS Disease Provider [facility] [address] [place] [address] [address] [place], [place] [phone] Kajal Huggins MD Assigned Neuroscience 01/29/21 10/23/21 [address] [facility] [address] Provider [address] [place], [place] [id number] Patience Toussaint NP Assigned Surgical 01/29/21 02/11/22 [address] [facility] Provider [address] [place], [place] [id number] documented as of this encounter
--- OUTSIDE RECORDS SUMMARY | 2022-06-15 12:44 | XMS_ITS | Encounter Summary ---
:1945 Author Organization [facility] Address [address] [place] [address] Care Team Providers Name Role Phone Chastity Montero MD Unavailable [phone] Johnnie Alcocer MD Unavailable Danni Marcus RN Unavailable Unavailable Mtm, Ea Complex Unavailable Unavailable Svetlana Osman [facility] Unavailable [phone] Haylie Cheung [facility] Unavailable [phone] Jaiden Holcomb MD Primary Care Provider [phone] Jaiden Holcomb MD Unavailable [phone] Ruth John MD Unavailable Kajal Huggins MD Unavailable Patience Toussaint NP Unavailable Encounter Details Date Type Department Care Team Description 05/13/2021 Travel Social History Tobacco Use Types Packs/Day [...] Visit Pharm D Haylie Cheung, [facility] [address] [facility] [place] [id number] (Wo rk) 11/15/2022 Virtual Visit IM/PedYane Muir MD [address] [place] [address] [place] [id number] (Wo rk) 03/03/2023 Virtual Visit Neurology Erlinda Barber MD [address] [place] [address] [address] [place] [address] (Wo rk) documented as of this encounter Visit Diagnoses Not on filedocumented in this encounter Additional Health Concerns Assessment Noted Time PHQ-9 Depression Total Score: 4 04/12/2019 7:03 AM CDT documented as of this encounter Care Teams Warehouse Receiving Clerk Relationship Specialty Start Date End Date Jaiden Holcomb PCP - General Internal Medicine 02/13/2010/03 MD Jayesh [address] [place] [address] [place] [id number] Chastity Montero MD Dermatology 09/23/[address] [place] [address] [address] [place], [place] [phone] Johnnie Alcocer MD Surgeon General Surgery 03/23/17 [address] [facility] [address] [place] [address] Danni Marcus, RN Personal Advocate & 01/09/1901/17 Liaison (PAL) Fernando, Ea Complex 04/23/19 Svetlana Osman, Pharmacist Pharmacotherapy 04/23/[address] [place] [address] Haylie Cheung, Pharmacist Pharmacist 09/11/[address] [place], [place] [phone] Jaiden Holcomb Assigned PCP 05/24/20 MD Jayesh [address] [place] [address] Ruth John MD Assigned Infectious 01/29/21 07/03/21 [facility] INFECTIOUS Disease Provider [facility] [address] [place] [address] 245 [place] [address] Kajal Huggins MD Assigned Neuroscience 01/29/21 10/23/[address] [place] [address] [address] Provider [address] [place] [address] Patience Toussaint NP Assigned Surgical 01/29/21 02/11/22 [address] [facility] Provider [address] [place], [place] [phone] documented as of this encounter
--- OUTSIDE RECORDS SUMMARY | 2022-06-15 12:45 | XMS_ITS | Encounter Summary ---
:1945 Author Organization [place] [facility] Address [address] [facility] [place] [address] Care Team Providers Name Role Phone Chastity Montero MD Unavailable [phone] Johnnie Alcocer MD Unavailable Danni Marcus RN Unavailable Unavailable Mtm, Ea Complex Unavailable Unavailable Svetlana Osman [facility] Unavailable [phone] Haylie Cheung [facility] Unavailable [phone] Jaiden Holcomb MD Primary Care Provider Kendall Joseph MD Unavailable Jaiden Holcomb MD Unavailable [phone] Ruth John MD Unavailable Kajal Huggins MD Unavailable Patience Toussaint NP Unavailable Encounter Details Date Type Department Care Team Description 03/16/2021 Anticoagulation [facility] Ruben Holcomb history of pulmonary embolism (Primary Dx); Therapy Visit Anticoagulation Jaiden escalante use of 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; Clinic MD Jayesh Paroxysmal atrial fibrillation (H) [address] [facility], [address] [place] [address] Social History Tobacco Use Types Packs/Day Years [...] documented as of this encounter Progress Notes Brie Mack RN - 03/16/2021 10:42 AM CDT ANTICOAGULATION MANAGEMENT Charlette Brush 76 year old female is on warfarin with therapeutic INR result. (Goal INR 2.0-3.0) Recent labs: (last 7 days) 03/16/21 1043 INR 2.4 ASSESSMENT Source(s): Chart Review ??? 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] [facility]DC current use of 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 [Z79.01] Paroxysmal atrial fibrillation (H) [I48.0] Comments: Anticoagulation Care Providers Provider Role Specialty Phone number Galdino Valdez MD Referring Family Medicine [phone] Lucero Stevenson MD Responsible Internal Medicine [phone] documented in this encounter Plan of Treatment Upcoming Encounters Date Type Specialty Care Team Description 11/15/2022 Virtual Visit Pharm Haylie Gonzalez, [facility] [address] [facility] [place] [address] ( winter) 11/15/2022 Virtual Visit IM/Peds Yane Barraza MD [address] [facility] [place] [address] (Lena max) 03/03/2023 Virtual Visit Neurology Erlinda Barber MD [address] [facility] [address] [place] [address] (Lena max) documented as of this encounter Procedures Procedure Name Priority Date/Time Associated Diagnosis Comme nts INR (EXTERNAL Routine 03/16/2021 10:43 AM Results for this RESULT) CDT procedure are i n the results section. 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 use of anticoagulant t herapy Paroxysmal atrial fibrillation (H) Atrial fibrillation documented in this encounter Additional Health Concerns Assessment Noted Time PHQ-9 Depression Total Score: 4 04/12/2019 7:03 AM CDT documented as of this encounter Care Teams Direct Marketing Executive Relationship Specialty Start Date End Date Jaiden Holcomb PCP - General Internal Medicine 02/13/2010/03 MD Jayesh [address] [facility] [address] Chastity Montero MD Dermatology 09/23/[address] [place] [address] 98 [place], [place] [phone] Johnnie Alcocer MD Surgeon General Surgery 03/23/[address] [place] [address] Danni Marcus, CHANDLER Personal Advocate & 01/09/1901/17 Liaison (PAL) Fernando, Ea Complex 04/23/19 Svetlana Osman, Pharmacist Pharmacotherapy 04/23/19 [facility] [address] [place] [address] Haylie Cheung, Pharmacist Pharmacist 09/11/19 [facility] [address] [place] [address] Opal, Assigned Sleep 05/08/20 03/27/21 Kendall Meehan MD Provider [address] [facility] [address] [facility] [address] [place] [address] Jaiden Holcomb Assigned PCP 05/24/20 MD Jayesh [address] [place] [address] Ruth John MD Assigned Infectious 01/29/21 07/03/21 [facility] Disease Provider [facility] [address] [place] [address] 245 [place] [address] Kajal Huggins MD Assigned Neuroscience 01/29/21 10/23/21 [address] [facility] [address] [place] [address] Patience Toussaint NP Assigned Surgical 01/29/21 02/11/22 [address] [facility] Provider [address] [place] [address] documented as of this encounter
--- OUTSIDE RECORDS SUMMARY | 2022-06-15 12:45 | XMS_ITS | Encounter Summary ---
:1945 Author Organization [place] Address [address] [place] [address] Care Team Providers Name Role Phone Chastity Montero MD Unavailable [phone] Johnnie Alcocer MD Unavailable Danni Marcus RN Unavailable Unavailable Mtm, Ea Complex Unavailable Unavailable Svetlana Osman [facility] Unavailable [phone] Haylie Cheung [facility] Unavailable [phone] Jaiden Holcomb MD Primary Care Provider Kendall Joseph MD Unavailable Jaiden Holcomb MD Unavailable [phone] Ruth John MD Unavailable Kajal Huggins MD Unavailable Patience Toussaint NP Unavailable Encounter Details Date Type Department Care Team Description 03/09/[address] [facility] Zhang, 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 embolism (Primary Dx); Visit Clinic Yarelis Hwang snf current use of ant icoagulant therapy; [address]b Mcconnell MD Paroxysmal atrial fibrillation (H) [address] [place] [address] [facility] [phone] Social History Tobacco Use Types Packs/Day [...] encounter Progress Notes Nicola Wagner RN - 03/09/2021 12:24 PM CDT ANTICOAGULATION MANAGEMENT Charlette Stilesalison 76 year old female is on warfarin with supratherapeutic INR result. (Goal INR 2.0-3.0) Recent labs: (last 7 days) 03/09/21 1225 INR 3.2* ASSESSMENT Source(s): Patient/Caregiver Call and Home Care/Facility Nurse ??? Warfarin doses taken: Warfarin taken as instructed ??? Diet: No new diet changes identified ??? New illness, injury, or hospitalization: No ??? Medication/supplement changes: None noted ??? Signs or symptoms of bleeding or clotting: No ??? Previous INR: Therapeutic last visit; previously outside of goal range ??? Additional findings: None. No factors to explain elevated INR. PLAN Recommended plan for no diet, medication or health factor changes affecting INR Dosing Instructions: Decrease your warfarin dose (7% change) with next INR in 1 week Summary As of 03/09/2021 Full warfarin instructions: 5 mg every Tue; 10 mg all other days Next INR check: 03/16/2021 Telephone call with Charlette who verbalizes understanding and agrees to plan Orders given to Homecare nurse/facility to recheck Education provided: Goal range and significance of current result Plan made per [facility] anticoagulation protocol Nicola Wagner RN Anticoagulation Clinic 03/09/2021 Anticoagulation Episode Summary Current INR goal: 2.0-3.0 TTR: 79.5 % (1 y) Target end date: Indefinite Send INR reminders to: [facility] Indications 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] snf current use of 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 [Z79.01] Paroxysmal atrial fibrillation (H) [I48.0] Comments: Anticoagulation Care Providers Provider Role Specialty Phone number Galdino Valdez MD Referring Family Medicine [phone] [facility] MD Responsible Internal Medicine [phone] documented in this encounter Plan of Treatment Upcoming Encounters Date Type Specialty Care Team Description 11/15/2022 Virtual Visit Pharm Haylie Gonzalez, [facility] [address] [facility] [place] [address] (Lena max) 11/15/2022 Virtual Visit IM/Yane Mathias MD 3305 [facility] [place] [address] (Lena max) 03/03/2023 Virtual Visit Neurology Erlinda Barber MD 420 [facility] 295 [place] [address] (Lena max) documented as of this encounter Procedures Procedure Name Priority Date/Time Associated Diagnosis Comme nts INR (EXTERNAL Routine 03/09/2021 12:25 PM Results for this RESULT) CDT procedure are i n the results section. documented in this encounter Results (ABNORMAL) INR (External Result) (03/09/2021 12:25 PM CDT) P athologist Signature INR (External) 3.2 (A) 0.9 - 1.1 EXTERNAL LAB Specimen (Source) Anatomical Collection Method Collection Time Re ceived Time Location / / Volume Laterality Blood 03/09/2021 12:25 PM CDT Resulting Agency Comment Home care Patient Reported LAB - HIM EXTERNAL RESULT Performing Organization Address City/State/ZIP Code Phon e Number EXTERNAL LAB EXTERNAL LAB External Lab documented in this encounter Visit Diagnoses Diagnosis 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 embolism - Primary snf current use of anticoagulant t herapy Paroxysmal atrial fibrillation (H) Atrial fibrillation documented in this encounter Additional Health Concerns Assessment Noted Time PHQ-9 Depression Total Score: 4 04/12/2019 7:03 AM CDT documented as of this encounter Care Teams Wire Mill Operator Relationship Specialty Start Date End Date Jaiden Holcomb PCP - General Internal Medicine 02/13/2010/03 MD Jayesh [address] [place] [address] Chastity Montero MD Dermatology 09/23/[address] [place] [address] 98 [place], [place] [address] Johnnie Alcocer MD Surgeon General Surgery 03/23/17 [address] [facility] 300 [place], [place] [id number] Danni Marcus, CHANDLER Personal Advocate & 01/09/1901/17 Liaison (PAL) Kyle King Complex 04/23/19 Svetlana Osman, Pharmacist Pharmacotherapy 04/23/19 [facility] [address] [place] [address] Haylie Cheung, Pharmacist Pharmacist 09/11/19 [facility] [address] [place] [address] Opal, Assigned Sleep 05/08/20 03/27/21 Kendall Meehan MD Provider [address] [facility] 106 [place] [address] Jaiden Holcomb Assigned PCP 05/24/20 MD Jayesh 909 [place], [place] [address] Ruth John MD Assigned Infectious 01/29/21 07/03/21 [facility] INFECTIOUS Disease Provider [facility] [address] [place] [address] 245 [place], [place] [id number] Kaajl Huggins MD Assigned Neuroscience 01/29/21 10/23/21 2945 [facility] [address] Provider [address] [place], [place] [id number] Patience Toussaint NP Assigned Surgical 01/29/21 02/11/22 2945 [facility] Provider [address] [place], [place] [id number] documented as of this encounter
--- OUTSIDE RECORDS SUMMARY | 2022-06-15 12:45 | XMS_ITS | Encounter Summary ---
:1945 Author Organization [place] Address [address] [place] [address] Care Team Providers Name Role Phone Chastity Montero MD Unavailable [phone] Johnnie Alcocer MD Unavailable Danni Marcus RN Unavailable Unavailable Mtm, Ea Complex Unavailable Unavailable Svetlana Osman [facility] Unavailable [phone] Haylie Cheung [facility] Unavailable [phone] Jaiden Holcomb MD Primary Care Provider [phone] Kendall Joseph MD Unavailable Jaiden Holcomb MD Unavailable [phone] Ruth John MD Unavailable Kajal Huggins MD Unavailable Patience Toussaint NP Unavailable Encounter Details Date Type Department Care Team Description 02/12/2021 Anticoagulation Therapy [facility] Zhang, 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 embolism (Primary Dx); Visit Clinic 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 How often do you attend jew or More than 4 times per year 05/03/2021 sikhism services? Do you belong to any clubs or No 05/03/2021 organizations such as jew groups, unions, fraternal or athletic groups, or [...] as of this encounter Progress Notes Brook Flores RN - 02/12/2021 10:35 AM CDT ANTICOAGULATION MANAGEMENT Charlette Brush 76 year old female is on warfarin with therapeutic INR result. (Goal INR 2.0-3.0) Recent labs: (last 7 days) 02/12/21 1036 INR 2.5 ASSESSMENT Source(s): Chart Review and Home Care/Facility [...] INR in 2 weeks Summary As of 02/12/2021 Full warfarin instructions: 10 mg every day Next INR check: Telephone call with home care nurse Janie who verbalizes understanding and agrees to plan and who agrees to plan and repeated back plan correctly Orders given to Homecare nurse/facility to recheck Education provided: Contact [phone] with any changes, questions or concerns. 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] longterm current use of 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 [Z79.01] Paroxysmal atrial fibrillation (H) [I48.0] Comments: Anticoagulation Care Providers Provider Role Specialty Phone number Galdino Valdez MD Referring Family Medicine [phone] GrahamLucero bowers MD Responsible Internal Medicine [phone] Brook De Luna RN, BSN, PHN Anticoagulation Nurse [phone] documented in this encounter Plan of Treatment Upcoming Encounters Date Type Specialty Care Team Description 11/15/2022 Virtual Visit Pharm Haylie Gonzalez, [facility] 14[address] [facility] [place] [address] (Lena max) 11/15/2022 Virtual Visit IM/Peds Yane Barraza MD 3[address] [facility] [place] [address] (Lena max) 03/03/2023 Virtual Visit Neurology Erlinda Barber MD 420 [facility] 295 [place] [address] (Lena max) documented as of this encounter Procedures Procedure Name Priority Date/Time Associated Diagnosis Comme nts INR (EXTERNAL Routine 02/12/2021 10:36 AM Results for this RESULT) CDT procedure are i n the results section. 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 Paroxysmal atrial fibrillation (H) Atrial fibrillation documented in this encounter Additional Health Concerns Assessment Noted Time PHQ-9 Depression Total Score: 4 04/12/2019 7:03 AM CDT documented as of this encounter Care Teams Gas Meter Installer Relationship Specialty Start Date End Date Jaiden Holcomb PCP - General Internal Medicine 02/13/2010/03 MD Jayesh [address] [facility] [address] [place], [place] [phone] Chastity Montero MD Dermatology 09/23/[address] [place] [address] 98 [place], [place] [address] Johnnie Alcocer MD Surgeon General Surgery 03/23/17 [address] [facility] 300 [place], [place] [phone] Danni Marcus, CHANDLER Personal Advocate & 01/09/1901/17 Liaison (PAL) Fernando, Ea Complex 04/23/19 Svetlana Osman, Pharmacist Pharmacotherapy 04/23/19 [facility] [address] [place], [place] [phone] Haylie Cheung, Pharmacist Pharmacist 09/11/19 [facility] [address] [place], [place] [id number] Opal, Assigned Sleep 05/08/20 03/27/21 Kendall Meehan MD Provider [address] [place], [place] [address] Jaiden Holcomb Assigned PCP 05/24/20 MD Jayesh 909 [place], [place] [address] Ruth John MD Assigned Infectious 01/29/21 07/03/21 [facility] INFECTIOUS Disease Provider [facility] [address] [place] [address] 245 [place] [address] Kajal Huggins MD Assigned Neuroscience 01/29/21 10/23/21 2945 [facility] [address] Provider [address] [place] [address] Patience Toussaint NP Assigned Surgical 01/29/21 02/11/22 2945 [facility] Provider [address] [place], [place] [phone] documented as of this encounter
--- OUTSIDE RECORDS SUMMARY | 2022-06-15 12:45 | XMS_ITS | Encounter Summary ---
:1945 Author Organization [place] Address [address] [place] [address] Care Team Providers Name Role Phone Chastity Montero MD Unavailable [phone] Johnnie Alcocer MD Unavailable Danni Marcus RN Unavailable Unavailable Mtm, Ea Complex Unavailable Unavailable Svetlana Osman [facility] Unavailable [phone] Haylie Cheung [facility] Unavailable [phone] Jaiden Holcomb MD Primary Care Provider Kendall Joseph MD Unavailable Jaiden Holcomb MD Unavailable [phone] Ruth John MD Unavailable Kajal Huggins MD Unavailable Patience Toussaint NP Unavailable Encounter Details Date Type Department Care Team Description 03/26/2021 Anticoagulation Therapy [facility] Zhang, 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 embolism (Primary Dx); Visit Clinic 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 How often do you attend hinduism or More than 4 times per year 05/03/2021 gnosticist services? Do you belong to any clubs or No 05/03/2021 organizations such as hinduism groups, unions, fraternal or athletic groups, or [...] encounter Progress Notes Svetlana Katz, CHANDLER - 03/26/2021 2:53 PM CDT Incoming call from home care nurseGaldino, from [employer] Date of INR 9/10 INR result 2.2 Thanks! Svetlana Katz RN Nicola Wagner RN - 03/26/2021 2:53 PM CDT ANTICOAGULATION MANAGEMENT Charlette Brush 76 year old female is on warfarin with therapeutic INR result. (Goal INR 2.0-3.0) Recent labs: (last 7 days) 03/26/21 1505 INR 2.2* ASSESSMENT Source(s): Home Care/Facility Nurse ??? Warfarin doses taken: [...] INR in 2 weeks Summary As of 03/26/2021 Full warfarin instructions: 5 mg every Tue; 10 mg all other days Next INR check: 04/09/2021 Telephone call with home care nurse Galdino who verbalizes understanding and agrees to plan Orders given to Homecare nurse/facility to recheck Education provided: Goal range and significance of current result Plan made per [facility] anticoagulation protocol Nicola Wagner RN Anticoagulation Clinic 03/26/2021 Anticoagulation Episode Summary Current INR goal: 2.0-3.0 TTR: 79.1 % (1 y) Target end date: Indefinite Send INR reminders to: [facility] Indications 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] 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 of 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 [Z79.01] Paroxysmal atrial fibrillation (H) [I48.0] Comments: Anticoagulation Care Providers Provider Role Specialty Phone number Galdino Valdez MD Referring Family Medicine [phone] Jaiden Holcomb MD Referring Internal Medicine [phone] Lucero Stevenson MD Responsible Internal Medicine [phone] documented in this encounter Plan of Treatment Upcoming Encounters Date Type Specialty Care Team Description 11/15/2022 Virtual Visit Haylie Wakefield, [facility] [address] [place] [address] (Wo rk) 11/15/2022 Virtual Visit IM/Yane Mathias MD [address] [facility] [place] [address] (Wo rk) 03/03/2023 Virtual Visit Neurology Erlinda Barber MD 420 [facility] 295 [place], [place] [address] (Wo rk) documented as of this encounter Procedures Procedure Name Priority Date/Time Associated Diagnosis Comme nts INR (EXTERNAL Routine 03/26/2021 3:05 PM Results for this RESULT) CDT procedure are i n the results section. documented in this encounter Results (ABNORMAL) INR (External Result) (03/26/2021 3:05 PM CDT) P athologist Signature INR (External) 2.2 (A) 0.9 - 1.1 EXTERNAL LAB Specimen (Source) Anatomical Collection Method Collection Time Re ceived Time Location / / Volume Laterality Blood 03/26/2021 3:05 PM CDT Resulting Agency Comment Home care Patient Reported LAB - HIM EXTERNAL RESULT Performing Organization Address City/State/ZIP Code Phon e Number EXTERNAL LAB EXTERNAL LAB External Lab documented in this encounter Visit Diagnoses Diagnosis 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 embolism - Primary halfway current use of anticoagulant t herapy Paroxysmal atrial fibrillation (H) Atrial fibrillation documented in this encounter Additional Health Concerns Assessment Noted Time PHQ-9 Depression Total Score: 4 04/12/2019 7:03 AM CDT documented as of this encounter Care Teams Concrete Engineering Technician Relationship Specialty Start Date End Date Jaiden Holcomb PCP - General Internal Medicine 02/13/2010/03 MD Jayesh 3[address] [facility] [place] [address] Chastity Montero MD Dermatology 09/23/14 420 [facility] 98 [place], [place] [address] Johnnie Alcocer MD Surgeon General Surgery 03/23/[address] [place], [place] [address] Danni Marcus, RN Personal Advocate & 01/09/1901/17 Liaison (PAL) Fernando, Ea Complex 04/23/19 Svetlana Osman, Pharmacist Pharmacotherapy 04/23/19 [facility] [address] [place] [address] Haylie Cheung, Pharmacist Pharmacist 09/11/19 [facility] [address] [facility] [address] [place], [place] [phone] Opal, Assigned Sleep 05/08/20 03/27/21 Kendall Meehan MD Provider [address] [facility] 106 [place], [place] [address] Jaiden Holcomb Assigned PCP 05/24/20 MD Jayesh 909 [place], [place] [address] Ruth John MD Assigned Infectious 01/29/21 07/03/21 [facility] INFECTIOUS Disease Provider [facility] [address] [facility] 245 [place] [address] Kajal Huggins MD Assigned Neuroscience 01/29/21 10/23/[address] [place] [address] Provider [address] [place] [address] Patience Toussaint NP Assigned Surgical 01/29/21 02/11/[address] [place] [address] Provider [address] [place] [address] documented as of this encounter
--- OUTSIDE RECORDS SUMMARY | 2022-06-15 12:45 | XMS_ITS | Encounter Summary ---
:1945 Author Organization [place] Address [address] [place] [address] Care Team Providers Name Role Phone Chastity Montero MD Unavailable [phone] Johnnie Alcocer MD Unavailable Danni Marcus RN Unavailable Unavailable Mtm, Ea Complex Unavailable Unavailable Svetlana Osman [facility] Unavailable [phone] Haylie Cheung [facility] Unavailable [phone] Jaiden Holcomb MD Primary Care Provider [phone] Kendall Joseph MD Unavailable Jaiden Holcomb MD Unavailable [phone] Ruth John MD Unavailable Kajal Huggins MD Unavailable Patience Toussaint NP Unavailable Brook Sánchez MD Unavailable Yane Barraza MD Primary Care Provider Osmar Kidd MD Unavailable Erlinda Barber MD Unavailable Yane Barraza MD Primary Care Provider Lenore Alcala MD Unavailable Haylie Cheung [facility] Unavailable [phone] Gaye Patrick RN Unavailable Unavailable Michela, Kim MIGEL JEWELRY DESIGNER Unavailable Maxi Hayley Farrah OD Unavailable Haylie Cheung [facility] Unavailable [phone] Reason for Visit Reason Comments Medication Refill Encounter Details Date Type Department Care Team Description 03/16/2021 Refill [facility] Wilbur Holcomb Medication Refill Yarelis Mcconnell MD [address] [address] [address] [place] [address] [phone] Social History Tobacco Use Types Packs/Day Years [...] or relatives? How often do you attend pentecostalism or More than 4 times per year 05/03/2021 scientology services? Do you belong to any clubs or No 05/03/2021 organizations such as pentecostalism groups, unions, fraternal or athletic groups, or [...] 11/15/2022 Virtual Visit Haylie Wakefield, [facility] [address] [facility] [place] [address] (Wo rk) 11/15/2022 Virtual Visit IM/Peds Yane Barraza MD [address] [place] [address] [place] [address] ( rk) 03/03/2023 Virtual Visit Neurology Erlinda Barber MD [address] [place] [address] [address] [place], [place] [phone] (Lena rk) documented as of this encounter Visit Diagnoses Diagnosis Essential hypertension, benign documented in this encounter Additional Health Concerns Assessment Noted Time PHQ-9 Depression Total Score: 4 04/12/2019 7:03 AM CDT documented as of this encounter Care Teams Community Specialist Relationship Specialty Start Date End Date Jaiden Holcomb PCP - General Internal Medicine 02/13/2010/03 MD Jayesh [address] [place] [address] [address] [place] [id number] Yane Barraza MD PCP - General Internal Medicine 10/04/21 12/07/[address] [place] [address] [place], [place] [id number] Yane Barraza MD PCP - General Internal Medicine 12/08/[address] [place] [address] [place], [place] [phone] Chastity Montero MD Dermatology 09/23/[address] [place] [address] 98 [place] [employer], [place] [address] Johnnie Alcocer MD Surgeon General Surgery 03/23/[address] [place] [address] Danni Marcus, CHANDLER Personal Advocate & 01/09/1901/17 Liaison (PAL) Mtkinsey, Ea Complex 04/23/19 Svetlana Osman, Pharmacist Pharmacotherapy 04/23/[address] [place] [address] Haylie Cheung, Pharmacist Pharmacist 09/11/19 [facility] [address] [place], [place] [phone] Edkrupaquan, Assigned Sleep 05/08/20 03/27/21 Kendall Meehan MD Provider [address] [place] [address] Jaiden Holcomb Assigned PCP 05/24/20 MD Jayesh 909 [place], [place] [address] Ruth John MD Assigned Infectious 01/29/21 07/03/21 [facility] INFECTIOUS Disease Provider [facility] [address] [place] [address] [address] [place], [place] [phone] Kajal Huggins MD Assigned Neuroscience 01/29/21 10/23/[address] [place] [address] Provider [address] [place] [address] Patience Toussaint NP Assigned Surgical 01/29/21 02/11/[address] [place] [address] Provider [address] [place] [address] Brook Sánchez MD Assigned Infectious 07/04/21 [address] [facility] [place] [address] Osmar Kidd MD Assigned Sleep 09/26/[address] [place] [address] Erlinda Barber MD Assigned Neuroscience 10/24/[address] [facility] [address] Provider [place] [employer], [place] [address] Lenore Alcala MD Assigned Heart and 12/18/21 01/21/22 [address] [facility] Vascular Provider [address] [place] [address] Haylie Cheung, Assigned MTM 01/08/22 [facility] Pharmacist [address] [place] [address] [id number] Gaye Patrick, RN Personal Advocate & 01/18/22 Liaison (PAL) Kenya Abernathy APRN Assigned Heart and 01/22/22 [facility] Vascular Provider [address] [place] [address] Hayley German, Assigned Surgical 02/12/[address] [facility] [place] [id number] Haylie Cheung, Assigned MTM 04/13/22 [facility] Pharmacist [address] [place] [address] [id number] documented as of this encounter
--- OUTSIDE RECORDS SUMMARY | 2022-06-15 12:45 | XMS_ITS | Encounter Summary ---
:1945 Author Organization [place] Address [address] [place] [address] Care Team Providers Name Role Phone Chastity Montero MD Unavailable [phone] Johnnie Alcocer MD Unavailable Danni Marcus RN Unavailable Unavailable Mtm, Ea Complex Unavailable Unavailable Svetlana Osman [facility] Unavailable [phone] Haylie Cheung [facility] Unavailable [phone] Jaiden Holcomb MD Primary Care Provider [phone] Kendall Joseph MD Unavailable Jaiden Holcomb MD Unavailable Ruth John MD Unavailable Kajal Huggins MD Unavailable Patience Toussaint NP Unavailable Reason for Visit Reason Comments Medication Refill Encounter Details Date Type Department Care Team Description 03/14/2021 Refill [facility] Erlinda Barber MD Medication Refill [address], [address] ELSI MONZON [facility] [address] [place] [address] [place], [place] [phone] Social History Tobacco Use Types Packs/Day Years [...] or relatives? How often do you attend episcopal or More than 4 times per year 05/03/2021 roman catholic services? Do you belong to any clubs or No 05/03/2021 organizations such as episcopal groups, unions, fraternal or athletic groups, or [...] this encounter Miscellaneous Notes Telephone Encounter - Krystyna Cotter RN - 03/17/2021 5:12 PM CDT Last Clinic Visit: 01/24/20 [place]: NONE RTC 6 MOS Scheduling has been notified to contact the pt for appointment. Creatinine Date Value Ref Range Status 09/25/2020 0.57 0.52 - 1.04 mg/dL Final documented in this encounter Plan of Treatment Upcoming Encounters Date Type Specialty Care Team Description 11/15/2022 Virtual Visit Pharm Haylie Gonzalez, [facility] [address] [facility] [place] [address] (Lena max) 11/15/2022 Virtual Visit IM/Peds Yane Barraza MD [address] [facility] [place] [address] (Lena max) 03/03/2023 Virtual Visit Neurology Erlinda Barber MD 420 [facility] 295 [place], [place] [address] (Wo rk) documented as of this encounter Visit Diagnoses Diagnosis Recurrent seizures (H) 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 documented in this encounter Additional Health Concerns Assessment Noted Time PHQ-9 Depression Total Score: 4 04/12/2019 7:03 AM CDT documented as of this encounter Care Teams Matcher Offbearer Relationship Specialty Start Date End Date Jaiden Holcomb PCP - General Internal Medicine 02/13/2010/03 MD Jayesh [address] [facility] [place] [address] Chastity Montero MD Dermatology 09/23/14 420 [facility] 98 [place], [place] [address] Johnnie Alcocer MD Surgeon General Surgery 03/23/17 [address] [place], [place] [address] Danni Marcus, CHANDLER Personal Advocate & 01/09/1901/17 Liaison (PAL) Fernando Ea Complex 04/23/19 Svetlana Osman, Pharmacist Pharmacotherapy 04/23/19 [place] [address] [place] [address] Haylie Cheung, Pharmacist Pharmacist 09/11/19 [facility] [address] [place] [id number] Opal, Assigned Sleep 05/08/20 03/27/21 Kendall Meehan MD Provider [address] [facility] 106 [place], [place] [address] Jaiden Holcomb Assigned PCP 05/24/20 MD Jayesh 909 [place], [place] [address] Ruth John MD Assigned Infectious 01/29/21 07/03/21 [facility] INFECTIOUS Disease Provider [facility] [address] [place] [address] Kajal Huggins MD Assigned Neuroscience 01/29/21 10/23/21 2945 [facility] Provider [address] [place] [address] Patience Toussaint NP Assigned Surgical 01/29/21 02/11/22 2945 [facility] Provider [address] [place], [place] [id number] documented as of this encounter
--- OUTSIDE RECORDS SUMMARY | 2022-06-15 12:45 | XMS_ITS | Encounter Summary ---
:1945 Author Organization [place] Address [address] [place] [address] Care Team Providers Name Role Phone Chastity Montero MD Unavailable [phone] Johnnie Alcocer MD Unavailable Danni Marcus RN Unavailable Unavailable Mtm, Ea Complex Unavailable Unavailable Svetlana Osman [facility] Unavailable [phone] Haylie Cheung [facility] Unavailable [phone] Jaiden Holcomb MD Primary Care Provider Kendall Joseph MD Unavailable Jaiden Holcomb MD Unavailable [phone] Ruth John MD Unavailable Kajal Huggins MD Unavailable Patience Toussaint NP Unavailable Encounter Details Date Type Department Care Team Description 03/02/2021 Anticoagulation Therapy [facility] Zhang, 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 embolism (Primary Dx); Visit Clinic [facility]arelis [facility] jail current use of ant icoagulant therapy; [address] [place] [place] M[place]onnell MD Paroxysmal atrial fibrillation (H) [address] [place] [id number] Social History Tobacco Use Types [...] Haylie Gonzalez, [facility] [address] [facility] [place] [address] (Wo rk) 11/15/2022 Virtual Visit IM/Peds Yane Barraza MD [address] [facility] [place] [address] (Wo rk) 03/03/2023 Virtual Visit Neurology Erlinda Barber MD 420 [facility] 295 [place] [address] (Wo rk) documented as of this encounter Procedures Procedure Name Priority Date/Time Associated Diagnosis Comme nts INR (EXTERNAL Routine 03/02/2021 11:30 AM Results for this RESULT) CDT procedure are i n the results section. documented in this encounter Results (ABNORMAL) INR (External Result) (03/02/2021 11:30 AM CDT) P athologist Signature INR (External) 2.2 (A) 0.9 - 1.1 EXTERNAL LAB Specimen (Source) Anatomical Collection Method Collection Time Re ceived Time Location / / Volume Laterality Blood 03/02/2021 11:30 AM CDT Resulting Agency Comment Testing performed at home by patient Patient Reported LAB - HIM EXTERNAL RESULT Performing Organization Address City/State/ZIP Code Phon e Number EXTERNAL LAB EXTERNAL LAB External Lab documented in this encounter Visit Diagnoses Diagnosis 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 embolism - Primary 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 manager current use of anticoagulant t herapy Paroxysmal atrial fibrillation (H) Atrial fibrillation documented in this encounter Additional Health Concerns Assessment Noted Time PHQ-9 Depression Total Score: 4 04/12/2019 7:03 AM CDT documented as of this encounter Care Teams Frame Bander Relationship Specialty Start Date End Date Jaiden Holcomb PCP - General Internal Medicine 02/13/2010/03 MD Jayesh [address] [facility] [place] [address] Chastity Montero MD Dermatology 09/23/14 420 [facility] 98 [place] [address] Johnnie Alcocer MD Surgeon General Surgery 03/23/17 [address] [facility] 300 [place], [place] [address] Danni Marcus, CHANDLER Personal Advocate & 01/09/1901/17 Liaison (PAL) Fernando, Ea Complex 04/23/19 Svetlana Osman, Pharmacist Pharmacotherapy 04/23/19 [facility] [address] [place] [address] Haylie Cheung, Pharmacist Pharmacist 09/11/19 [facility] [address] [place], [place] [id number] Opal, Assigned Sleep 05/08/20 03/27/21 Kendall Meehan MD Provider [address] [place] [address] Jaiden Holcomb Assigned PCP 05/24/20 MD Jayesh 909 [place] [address] Ruth John MD Assigned Infectious 01/29/21 07/03/21 [facility] INFECTIOUS Disease Provider [facility] [address] [place] [address] 245 [place] [address] Kajal Huggins MD Assigned Neuroscience 01/29/21 10/23/21 2945 [facility] Provider [address] [place] [address] Patience Toussaint NP Assigned Surgical 01/29/21 02/11/22 2945 [facility] Provider [address] [place] [address] documented as of this encounter
--- OUTSIDE RECORDS SUMMARY | 2022-06-15 12:45 | XMS_ITS | Encounter Summary ---
:1945 Author Organization [place] Address [address] [place] [address] Care Team Providers Name Role Phone Chastity Montero MD Unavailable [phone] Johnnie Alcocer MD Unavailable Danni Marcus RN Unavailable Unavailable Mtm, Ea Complex Unavailable Unavailable Svetlana Osman [facility] Unavailable [phone] Haylie Cheung [facility] Unavailable [phone] Jaiden Holcomb MD Primary Care Provider Kendall Joseph MD Unavailable Jaiden Holcomb MD Unavailable Ruth John MD Unavailable Kajal Huggins MD Unavailable Patience Toussaint NP Unavailable Reason for Visit Reason Comments Medication Refill Encounter Details Date Type Department Care Team Description 03/16/2021 Refill [facility] Wilbur Holcomb Medication Refill Yarelis Mcconnell MD [address] [address] [address] [place] [address] [phone] Social History Tobacco Use Types Packs/Day Years [...] or relatives? How often do you attend holiness or More than 4 times per year 05/03/2021 religion services? Do you belong to any clubs or No 05/03/2021 organizations such as holiness groups, unions, fraternal or athletic groups, or [...] place to sleep or slept in a nursing home (including now)? Education Answer Date Recorded [...] 11/15/2022 Virtual Visit Pharm D Haylie Cheung K sunday Rojas, [facility] 14[address] [facility] [place] [address] (Wo winter) 11/15/2022 Virtual [place] [address] [place] [address] [place] [id number] (Wo winter) 03/03/2023 Virtual Visit Neurology Erlinda Barber MD 420 [facility] 295 [place] [address] (Wo winter) documented as of this encounter Visit Diagnoses Diagnosis Dermatitis Contact dermatitis and other eczema, due to unspecified cause documented in this encounter Additional Health Concerns Assessment Noted Time PHQ-9 Depression Total Score: 4 04/12/2019 7:03 AM CDT documented as of this encounter Care Teams Seed Corn Production Manager Relationship Specialty Start Date End Date Jaiden Holcomb PCP - General Internal Medicine 02/13/2010/03 MD Jayesh [address] [facility] [place] [address] Chastity Montero MD Dermatology 09/23/14 420 [facility] 98 [place], [place] [address] Johnnie Alcocer MD Surgeon General Surgery 03/23/[address] [place], [place] [address] Danni Marcus, CHANDLER Personal Advocate & 01/09/1901/17 Liaison (PAL) Fernando Ea Complex 04/23/19 Svetlana Osman, Pharmacist Pharmacotherapy 04/23/19 [facility] [address] [place] [address] Haylie Cheung, Pharmacist Pharmacist 09/11/19 [facility] [address] [place] [address] Opal, Assigned Sleep 05/08/20 03/27/21 Kendall Meehan MD Provider [address] [place], [place] [address] Jaiden Holcomb Assigned PCP 05/24/20 MD Jayesh 909 [place], [place] [phone] Ruth John MD Assigned Infectious 01/29/21 07/03/21 [facility] INFECTIOUS Disease Provider [facility] [address] [facility] [address] [place], [place] [id number] Kajal Huggins MD Assigned Neuroscience 01/29/21 10/23/21 2945 [facility] Provider [address] [place], [place] [id number] Patience Toussaint NP Assigned Surgical 01/29/21 02/11/22 2945 [facility] Provider [address] [place] [address] documented as of this encounter
--- OUTSIDE RECORDS SUMMARY | 2022-06-15 12:45 | XMS_ITS | Encounter Summary ---
:1945 Author Organization [place] Address Counts include 234 beds at the [facility]0 [place] [address] Care Team Providers Name Role Phone Chastity Montero MD Unavailable [phone] Johnnie Alcocer MD Unavailable Danni Marcus RN Unavailable Unavailable Mtm, Ea Complex Unavailable Unavailable Svetlana Osman [facility] Unavailable [phone] Haylie Cheung [facility] Unavailable [phone] Jaiden Holcomb MD Primary Care Provider Kendall Joseph MD Unavailable Jaiden Holcomb MD Unavailable Ruth John MD Unavailable Kajal Huggins MD Unavailable Patience Toussaint NP Unavailable Reason for Visit Reason Comments Seizures VIDEO VISIT RETURN Encounter Details Date Type Department Care Team Description 03/26/2021 Virtual Visit [facility] Erlinda Barber MD Recurrent seizures Neurology Clinic [address] [facility] 295 [address] [place], [place] 3rd Floor [address] [place], [place] [phone] [address] (Work) [phone] Social History Tobacco Use Types Packs/Day Years [...] Patient Instructions Patient InstructionsErlinda Barber MD - 03/26/2021 10:50 AM CDT Times of Days am pm Medication Tablet Size Number of Tablets/Capsules Total Daily Dosage Keppra 500 1 1 1000 mg Carry this with you at all times. CONTINUE TAKING YOUR OTHER MEDICATIONS PREVIOUSLY DIRECTED. * * *Do not store medications in the bathroom. Keep medications away from children!* * * documented in this encounter Progress Notes Erlinda Barber MD - 03/26/2021 10:50 AM CDT Charlette is a 76 year old who is being evaluated via a billable video visit. How would you like to obtain your AVS? MyChart If the video visit is dropped, the invitation should be resent by: Send to e- mail at: Will anyone else be joining your video visit? No Video Start Time: 10:52 AM Video-Visit Details Type of service: Video Visit Video End Time:11:05 AM Originating Location (pt. Location): Home Distant Location (provider location): [facility] [place] Platform used for Video Visit: [employer] Erlinda Barber MD - 03/26/2021 10:50 AM CDT CHIEF COMPLAINT: New onset seizure. HISTORY OF PRESENT ILLNESS: Video call for follow up. Patient is a 75-year-old right-handed female with new onset seizure in 2018. This was the only seizure in her life time,which was on 03/15/2019. Since the last visit, she had no seizures. She is currently taking Keppra 500 mg bid. She is compliant with her medications. No side effects were reported. She is happy with the results. Her previous EEG showed left tempora epileptiform activities. According to the patient and her daughter, she was in her usual state of health until 03/15 when shewas on the phone with her daughter. Her daughter felt that she suddenly had difficulty speaking. Herwords did not make any sense and she had her occupational therapist came in that afternoon and she could only remember the therapist came in, but did not remember when the therapist left. The next thing she remembers was that she was in an ambulance. She was taken to the emergency department and she was noticed by the ER staff that she had intermittent confusional spells, difficulties with speech andher speech did not make any sense from time to time. The patient did not remember much in the emergency room and she was back to baseline [...] with loss of consciousness. No history of JAVA TECHNICAL ARCHITECT infection. No history of febrile convulsions. No history of brain tumor, no history of stroke. She had normal and development. CURRENT AEDs: 1. Keppra 500 mg bid. ?? Current Outpatient Medications Medication Sig Dispense Refill ??? acetaminophen (TYLENOL) 325 MG tablet Take 2 tablets (650 mg) by mouth every 4 hours as needed for mild pain (Patient taking differently: Take 325 mg by mouth every 4 hours as needed for mild pain ) ??? amoxicillin-clavulanate (AUGMENTIN XR) 1000-62.5 MG 12 hr tablet Take 1 tablet by mouth 2 times daily Per [facility] 20 tablet 0 ??? atenolol (TENORMIN) 25 MG tablet TAKE 1 TABLET(25 MG) BY MOUTH TWICE DAILY 180 tablet 1 ??? bisacodyl (DULCOLAX) 5 MG EC tablet Take 1 tablet (5 mg) by mouth daily ??? cetirizine (ZYRTEC) 10 MG tablet Take 10 mg by mouth 2 times daily ??? Cholecalciferol (VITAMIN D PO) Take 5,000 Units by mouth daily ??? docusate sodium (COLACE) 100 MG capsule Take 1 capsule (100 mg) by mouth daily as needed for constipation Patient take own Stool Softener. Recommend taking Monday,Monday,Monday. 0 ??? doxycycline hyclate (VIBRAMYCIN) 100 MG capsule Take 1 capsule (100 mg) by mouth 2 times daily Per [facility] 20 capsule 0 ??? FEROSUL 325 (65 Fe) MG tablet TAKE 1 TABLET BY MOUTH EVERY OTHER DAY WITH BREAKFAST 100 tablet 0 ??? fish oil-omega-3 fatty acids 1000 MG capsule Take 2 g by mouth daily ??? hydrocortisone 2.5 % ointment Daily as needed to rash on arms and legs 180 g 3 ??? levETIRAcetam (KEPPRA) 500 MG tablet Take 1 tablet (500 mg) by mouth 2 times daily *PLEASE SCHEDULE APPT. FOR REFILLS * 60 tablet 0 ??? losartan (COZAAR) 50 MG tablet TAKE 1 TABLET(50 MG) BY MOUTH DAILY 90 tablet 1 ??? Multiple Minerals-Vitamins (CITRACAL MAXIMUM PLUS) TABS Take 0.5 tablets by mouth 2 times daily ??? Multiple Vitamins-Minerals (PRESERVISION/LUTEIN) CAPS Take 1 tablet by mouth 2 times daily ??? multivitamin w/minerals (THERA-VIT-M) tablet Take 1 tablet by mouth daily ??? nystatin (MYCOSTATIN) 312928 UNIT/GM external cream APPLY EXTERNALLY TO THE AFFECTED AREA DAILY NEEDED FOR IRRITATION 90 g 11 ??? nystatin (NYSTOP) 242226 UNIT/GM external powder APPLY TOPICALLY TO THE AFFECTED AREA BENEATH BILATERAL BREAST/GROIN FOLDS TWICE DAILY UNTIL RESOLVED 180 g 11 ??? order for DME Equipment being ordered: Bariatric 4-wheeled walker Seat width needs to be 20 inches or greater Handlebar width needs to be 22 inches or greater 1 each 0 ??? Probiotic Product (PROBIOTIC PO) TherBiotic 25 billion CFU once daily for 4- 6 weeks, then 1-2 times once a week for a few months. ??? triamcinolone (KENALOG) 0.1 % external ointment Apply topically 2 times daily as needed for irritation 45 g 0 ??? vitamin C (ASCORBIC ACID) 1000 MG TABS Take 1,000 mg by mouth daily ??? warfarin ANTICOAGULANT (COUMADIN) 10 MG tablet Take 1 tablet (10 mg) by mouth daily or as directed by your [facility] Care Team. 90 tablet 1 ??? warfarin ANTICOAGULANT (COUMADIN) 5 MG tablet Take 10 mg daily or as directed by the INR clinic 200 tablet 0 ??? zinc gluconate 50 MG tablet Take 1 tablet (50 mg) by mouth daily every other day. PAST ANTISEIZURE MEDICATIONS: None. ALLERGIES: Cephalexin, lanolin, [...] tonic-clonic seizures. SOCIAL HISTORY: She lives in [place]. She had regular classes in the past. [...] MRI of the brain was negative, and recent EEG showed the left temporal slowing and [...] 2. Return to clinic in 12 months. 23 min total time was spent on the day of this visit. 13 min was spent on face to face time 5 min was spent on preparation of visit to review charts and labs, ordering medications and tests 5 min was spent on documentation of clinical information documented in this encounter Plan of Treatment Upcoming Encounters Date Type Specialty Care Team Description 11/15/2022 Virtual Visit Haylie Wakefield, [facility] [address] [place] [address] (Wo rk) 11/15/2022 Virtual Visit [place] [address] [place] [address] [place] [id number] (Wo rk) 03/03/2023 Virtual Visit Neurology Erlinda Barber MD 420 [facility] 295 [place], [place] [address] (Wo winter) documented as of this encounter Visit Diagnoses Diagnosis Recurrent seizures (H) 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 documented in this encounter Additional Health Concerns Assessment Noted Time PHQ-9 Depression Total Score: 4 04/12/2019 7:03 AM CDT documented as of this encounter Care Teams Body Masker Relationship Specialty Start Date End Date Jaiden Holcomb PCP - General Internal Medicine 02/13/2010/03 MD Jayesh [address] [place] [address] [place] [address] Chastity Montero MD Dermatology 09/23/14 420 [facility] 98 [place] [address] Johnnie Alcocer MD Surgeon General Surgery 03/23/[address] [place], [place] [address] Danni Marcus, CHANDLER Personal Advocate & 01/09/1901/17 Liaison (PAL) Fernando, Ea Complex 04/23/19 Svetlana Osman, Pharmacist Pharmacotherapy 04/23/19 [facility] [address] [place] [address] Haylie Cheung, Pharmacist Pharmacist 09/11/19 [facility] [address] [place], [place] [address] Opal, Assigned Sleep 05/08/20 03/27/21 Kendall Meehan MD Provider [address] [place] [address] Jaiden Holcomb Assigned PCP 05/24/20 MD Jayesh 909 [place] [address] Ruth John MD Assigned Infectious 01/29/21 07/03/21 [facility] INFECTIOUS Disease Provider [facility] [address] [place] [address] 245 [place] [address] Kajal Huggins MD Assigned Neuroscience 01/29/21 10/23/21 2945 [facility] Provider [address] [place] [address] Patience Toussaint NP Assigned Surgical 01/29/21 02/11/22 2945 [facility] Provider [address] [place] [address] documented as of this encounter
--- OUTSIDE RECORDS SUMMARY | 2022-06-15 12:45 | XMS_ITS | Encounter Summary ---
:1945 Author Organization [place] Address [address] [place] [address] Care Team Providers Name Role Phone Chastity Montero MD Unavailable [phone] Johnnie Alcocer MD Unavailable Danni Marcus RN Unavailable Unavailable Mtm, Ea Complex Unavailable Unavailable Svetlana Osman [facility] Unavailable [phone] Haylie Cheung [facility] Unavailable [phone] Jaiden Holcomb MD Primary Care Provider [phone] Kendall Joseph MD Unavailable Jaiden Holcomb MD Unavailable [phone] Ruth John MD Unavailable Kajal Huggins MD Unavailable Patience Toussaint NP Unavailable Encounter Details Date Type Department Care Team Description 02/26/2021 Anticoagulation Therapy [facility] Zhang, 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 embolism (Primary Dx); Visit Clinic Yarelis Hwang long-term current use of ant icoagulant therapy; 1789 CalimesaBarb Mcconnell MD Paroxysmal atrial fibrillation (H) [address] [place] [phone] Social History Tobacco Use Types [...] or relatives? How often do you attend orthodoxy or More than 4 times per year 05/03/2021 mu-ism services? Do you belong to any clubs or No 05/03/2021 organizations such as orthodoxy groups, unions, fraternal or athletic groups, or [...] encounter Progress Notes Svetlana Katz RN - 02/26/2021 10:09 AM CDT ANTICOAGULATION MANAGEMENT Charlette Brush 76 year old female is on warfarin with supratherapeutic INR result. (Goal INR 2.0-3.0) Recent labs: (last 7 days) 02/26/21 1009 INR 3.4* ASSESSMENT Source(s): Chart Review and Home Care/Facility Nurse ??? Warfarin doses taken: Warfarin taken as instructed ??? Diet: No new diet changes identified ??? New illness, injury, or hospitalization: patient has wound on buttock Medication/supplement changes: patient currently on doxycycline 100 mg BID (4 days left) and on Amoxicillin 2 tabs BID(1 day left) ??? Signs or symptoms of bleeding or clotting: No ??? Previous INR: Therapeutic last 2(+) visits ??? Additional findings: None PLAN Recommended plan for temporary change(s) affecting INR Dosing Instructions: Partial hold then continue your current warfarin dose with next INR in 4 days Summary As of 02/26/2021 Full warfarin instructions: 02/26: 5 mg; Otherwise 10 mg every day Next INR check: Telephone call with home care nurse Janie Barraza who verbalizes understanding andagrees to plan and who agrees to plan and repeated back plan correctly Orders given to Homecare nurse/facility to recheck Education provided: Please call back if any changes to your diet, medications or how you've been taking warfarin Plan made per 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] long-term current use of 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 [Z79.01] Paroxysmal atrial fibrillation (H) [I48.0] Comments: Anticoagulation Care Providers Provider Role Specialty Phone number Galdino Valdez MD Referring Family Medicine [phone] Lucero Stevenson MD Responsible Internal Medicine [phone] documented in this encounter Plan of Treatment Upcoming Encounters Date Type Specialty Care Team Description 11/15/2022 Virtual Visit Pharm Haylie Gonzalez, [facility] [address] [facility] [place] [address] (Wo rk) 11/15/2022 Virtual [place] [address] [place] [address] [place] [address] (Lena max) 03/03/2023 Virtual Visit Neurology Erlinda Barber MD 420 [facility] 295 [place] [address] (Wo rk) documented as of this encounter Procedures Procedure Name Priority Date/Time Associated Diagnosis Comme nts INR (EXTERNAL Routine 02/26/2021 10:09 AM Results for this RESULT) CDT procedure are i n the results section. documented in this encounter Results (ABNORMAL) INR (External Result) (02/26/2021 10:09 AM CDT) P athologist Signature INR (External) 3.4 (A) 2 - 3 EXTERNAL LAB Specimen (Source) Anatomical Collection Method Collection Time Re ceived Time Location / / Volume Laterality Blood 02/26/2021 10:09 AM CDT Resulting Agency Comment Home care Patient [...] documented as of this encounter Care Teams Lead Medical Technologist Relationship Specialty Start Date End Date Jaiden Holcomb PCP - General Internal Medicine 02/13/2010/03 MD Jayesh [address] [facility] [address] [place], [place] [phone] Chastity Montero MD Dermatology 09/23/14 [address] [facility] 98 [place], [place] [address] Johnnie Alcocer MD Surgeon General Surgery 03/23/[address] [place] [address] Danni Marcus, CHANDLER Personal Advocate & 01/09/1901/17 Liaison (PAL) Fernando, Ea Complex 04/23/19 Svetlana Osman, Pharmacist Pharmacotherapy 04/23/19 [facility] [address] [facility] [place] [address] Haylie Cheung, Pharmacist Pharmacist 09/11/19 [facility] [address] [facility] [place] [address] Opal, Assigned Sleep 05/08/20 03/27/21 Kendall Meehan MD Provider [address] [facility] [address] [place], [place] [address] Jaiden Holcomb Assigned PCP 05/24/20 MD Jayesh 909 [place] [address] Ruth John MD Assigned Infectious 01/29/21 07/03/21 [facility] INFECTIOUS Disease Provider [facility] [address] [place] [address] 245 [place] [address] Kajal Huggins MD Assigned Neuroscience 01/29/21 10/23/[address] [place] [address] Provider [address] [place] [address] Patience Toussaint NP Assigned Surgical 01/29/21 02/11/[address] [place] [address] Provider [address] [place] [address] documented as of this encounter
--- OUTSIDE RECORDS SUMMARY | 2022-06-15 12:45 | XMS_ITS | Encounter Summary ---
:1945 Author Organization [place] Address [address] [place] [address] Care Team Providers Name Role Phone Chastity Montero MD Unavailable [phone] Johnnie Alcocer MD Unavailable Danni Marcus RN Unavailable Unavailable Mtm, Ea Complex Unavailable Unavailable Svetlana Osman [facility] Unavailable [phone] Haylie Cheung [facility] Unavailable [phone] Jaiden Holcomb MD Primary Care Provider Jaiden oHlcomb MD Unavailable [phone] Ruth John MD Unavailable Kajal Huggins MD Unavailable Patience Toussaint NP Unavailable Reason for Visit Reason Onset Date Comments Anticoagulation 04/01/2021 Encounter Details Date Type Department Care Team Description 04/01/2021 Telephone [facility] Wilbur Holcomb MD [address] [address] [address] [place] [address] [phone] Social History Tobacco Use Types Packs/Day Years [...] this encounter Miscellaneous Notes Telephone Encounter - Nicola Wagner RN - 04/01/2021 11:13 AM CDT LVM for Dhara giving verbal orders for 10mg warfarin 04/08 and INR recheck 04/09. Telephone Encounter - Gisele Reed - 04/01/2021 11:05 AM CDT Dhara with [facility] left VM at 10:42am Is scheduled for INR on the , they are scheduled to seeing patient every Monday and Monday. Wondering if they can move INR to the Monday? If this is okay, they would need dosing for . Callback, Thank you Luis E Carreon Prosthetic Lab Technician - Complex Care Team documented in this encounter Plan of Treatment Upcoming Encounters Date Type Specialty Care Team Description 11/15/2022 Virtual Visit Pharm Haylie Gonzalez, [facility] [address] [place], [place] [id number] (Wo rk) 11/15/2022 Virtual Visit [place] [address] [place] [address] [address] [place] [id number] (Wo rk) 03/03/2023 Virtual Visit Neurology Erlinda Barber MD 420 [facility] 295 [place], [place] [address] (Wo rk) documented as of this encounter Visit Diagnoses Not on filedocumented in this encounter Additional Health Concerns Assessment Noted Time PHQ-9 Depression Total Score: 4 04/12/2019 7:03 AM CDT documented as of this encounter Care Teams Device Processing Engineer Relationship Specialty Start Date End Date Jaiden Holcomb PCP - General Internal Medicine 02/13/2010/03 MD Jayesh [address] [place] [address] [address] [place] [id number] Chastity Montero MD Dermatology 09/23/[address] [place] [address] 98 [place], [place] [address] Johnnie Alcocer MD Surgeon General Surgery 03/23/17 [address] [facility] 300 [place] [address] Danni Marcus, CHANDLER Personal Advocate & 01/09/1901/17 Liaison (PAL) Fernando, Ea Complex 04/23/19 Svetlana Osman, Pharmacist Pharmacotherapy 04/23/19 [facility] [address] [place] [address] Haylie Cheung, Pharmacist Pharmacist 09/11/19 [facility] [address] [place] [id number] Jaiden Holcomb Assigned PCP 05/24/20 MD Jayesh [address] [place] [address] Ruth John MD Assigned Infectious 01/29/21 07/03/21 [facility] INFECTIOUS Disease Provider [facility] [address] [place] [address] 245 [place] [address] Kajal Huggins MD Assigned Neuroscience 01/29/21 10/23/21 2945 [facility] Provider [address] [place] [address] Patience Toussaint NP Assigned Surgical 01/29/21 02/11/22 2945 [facility] Provider [address] [place] [address] documented as of this encounter
--- OUTSIDE RECORDS SUMMARY | 2022-06-15 12:45 | XMS_ITS | Encounter Summary ---
:1945 Author Organization [place] Address [address] [place] [address] Care Team Providers Name Role Phone Chastity Montero MD Unavailable [phone] Johnnie Alcocer MD Unavailable Danni Marcus RN Unavailable Unavailable Mtm, Ea Complex Unavailable Unavailable Svtelana Osman [facility] Unavailable [phone] Haylie Cheung [facility] Unavailable [phone] Jaiden Holcomb MD Primary Care Provider [phone] Kendall Joseph MD Unavailable Jaiden Holcomb MD Unavailable [phone] Ruth John MD Unavailable Kajal Huggins MD Unavailable Patience Toussaint NP Unavailable Reason for Visit Reason Comments Medication Refill Encounter Details Date Type Department Care Team Description 03/20/2021 Refill [facility] Wilbur Holcomb Medication Refill Yarelis Mcconnell MD [address] [address] [address] [place] [address] [phone] Social History Tobacco Use Types Packs/Day Years [...] Virtual Visit Pharm D Haylie Cheung K sudnay Rojas, [facility] 14[address] [facility] [place] [address] (Wo winter) 11/15/2022 Virtual [place] [address] [place] [address] [place] [id number] (Wo rk) 03/03/2023 Virtual Visit Neurology Erlinda Barber MD 420 [facility] 295 [place] [address] (Wo rk) documented as of this encounter Visit Diagnoses Diagnosis Iron deficiency anemia, unspecified iron deficiency anemia type documented in this encounter Additional Health Concerns Assessment Noted Time PHQ-9 Depression Total Score: 4 04/12/2019 7:03 AM CDT documented as of this encounter Care Teams Tugboat Engineer Relationship Specialty Start Date End Date Jaiden Holcomb PCP - General Internal Medicine 02/13/2010/03 MD Jayesh [address] [place] [address] Chastity Montero MD Dermatology 09/23/14 420 [facility] 98 [place] [address] Johnnie Alcocer MD Surgeon General Surgery 03/23/17 [address] [facility] 300 [place], [place] [address] Danni Marcus, CHANDLER Personal Advocate & 01/09/1901/17 Liaison (PAL) Fernando Ea Complex 04/23/19 Svetlana Osman, Pharmacist Pharmacotherapy 04/23/19 [facility] [address] [place] [address] Haylie Cheung, Pharmacist Pharmacist 09/11/19 [facility] [address] [facility] [address] [place], [place] [phone] Opal, Assigned Sleep 05/08/20 03/27/21 Kendall Meehan MD Provider [address] [email or web address] 106 [place], [place] [address] Jaiden Holcomb Assigned PCP 05/24/20 MD Jayesh 909 [place], [place] [id number] Ruth John MD Assigned Infectious 01/29/21 07/03/21 [facility] INFECTIOUS Disease Provider [facility] [address] [facility] [place] 245 [place], [place] [id number] Kajal Huggins MD Assigned Neuroscience 01/29/21 10/23/21 2945 [facility] Provider [address] [place], [place] [id number] Patience Toussaint, VIANEY Assigned Surgical 01/29/21 02/11/22 2945 [facility] Provider [address] [place] [address] documented as of this encounter
--- OUTSIDE RECORDS SUMMARY | 2022-06-15 12:45 | XMS_ITS | Encounter Summary ---
:1945 Author Organization [place] Address [address] [place] [address] Care Team Providers Name Role Phone Chastity Montero MD Unavailable [phone] Johnnie Alcocer MD Unavailable Danni Marcus RN Unavailable Unavailable Mtm, Ea Complex Unavailable Unavailable Svetlana Osman [facility] Unavailable [phone] Haylie Cheung [facility] Unavailable [phone] Jaiden Holcomb MD Primary Care Provider Kendall Joseph MD Unavailable Jaiden Holcomb MD Unavailable [phone] Ruth John MD Unavailable Kajal Huggins MD Unavailable Patience Toussaint NP Unavailable Encounter Details Date Type Department Care Team Description 02/05/2021 Anticoagulation Therapy [facility] Zhang, 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 embolism (Primary Dx); Visit Clinic Yarelis Hwang medical terminologist current use of ant icoagulant therapy; [address]b Mcconnell MD Paroxysmal atrial fibrillation (H) [address] [place] [address] [facility] [phone] Social History Tobacco Use [...] or relatives? How often do you attend adventist or More than 4 times per year 05/03/2021 confucianist services? Do you belong to any clubs or No 05/03/2021 organizations such as adventist groups, unions, fraternal or athletic groups, or [...] encounter Progress Notes Sasha Rueda RN - 02/05/2021 12:17 PM CDT ANTICOAGULATION MANAGEMENT Charlette Brush 76 year old female is on warfarin with therapeutic INR result. (Goal INR 2.0-3.0) Recent labs: (last 7 days) 02/05/21 1217 INR 2.6* ASSESSMENT Source(s): Chart Review and Home Care/Facility Nurse ??? Warfarin doses taken: Warfarin taken as instructed ??? Diet: No new diet changes identified ??? New illness, injury, or hospitalization: No ??? Medication/supplement changes: None noted ??? Signs or symptoms of bleeding or clotting: No ??? Previous INR: Supratherapeutic ??? Additional findings: Patient prefers to take normal dosing of 10 mg daily rather than reduced maint dose from last week per protocol PLAN Recommended plan for temporary change(s) affecting INR Dosing Instructions: Change maint dose to 10 mg daily as taken previously with next INR in 1 week Summary As of 02/05/2021 Full warfarin instructions: 10 mg every day Next INR check: Telephone call with home care nurse Janie who verbalizes understanding and agrees to plan Orders given to Homecare nurse/facility to recheck Education provided: Please call back if any changes to your diet, medications or how you've been taking warfarin Plan made per [facility] anticoagulation protocol Sasha Rueda RN Anticoagulation Clinic 02/05/2021 Anticoagulation Episode Summary Current INR goal: 2.0-3.0 TTR: 80.6 % (1 y) Target end date: Indefinite Send INR reminders to: [facility] Indications 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] medical terminologist current use of 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 [Z79.01] Paroxysmal atrial fibrillation (H) [I48.0] Comments: Anticoagulation Care Providers Provider Role Specialty Phone number Galdino Valdez MD Referring Family Medicine [phone] [facility] Responsible Internal Medicine [phone] documented in this encounter Plan of Treatment Upcoming Encounters Date Type Specialty Care Team Description 11/15/2022 Virtual Visit Pharm Haylie Gonzalez, [facility] 1440 [facility] [place] [address] (Lena max) 11/15/2022 Virtual [place] [address] [place] [address] [place] [address] (Lena max) 03/03/2023 Virtual Visit Neurology Erlinda Barber MD 420 [facility] 295 [place] [address] (Lena max) documented as of this encounter Procedures Procedure Name Priority Date/Time Associated Diagnosis Comme nts INR (EXTERNAL Routine 02/05/2021 12:17 PM Results for this RESULT) CDT procedure are i n the results section. documented in this encounter Results (ABNORMAL) INR (External Result) (02/05/2021 12:17 PM CDT) P athologist Signature INR (External) 2.6 (A) 0.9 - 1.1 EXTERNAL LAB Specimen (Source) Anatomical Collection Method Collection Time Re ceived Time Location / / Volume Laterality Blood 02/05/2021 12:17 PM CDT Resulting Agency Comment Home INR Patient Reported LAB - HIM EXTERNAL RESULT Performing Organization Address City/State/ZIP Code Phon e Number EXTERNAL LAB EXTERNAL LAB External Lab documented in this encounter Visit Diagnoses Diagnosis 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 embolism - Primary medical terminologist current use of anticoagulant t herapy Paroxysmal atrial fibrillation (H) Atrial fibrillation documented in this encounter Additional Health Concerns Assessment Noted Time PHQ-9 Depression Total Score: 4 04/12/2019 7:03 AM CDT documented as of this encounter Care Teams Cafeteria Director Relationship Specialty Start Date End Date Jaiden Holcomb PCP - General Internal Medicine 02/13/2010/03 MD Jayesh [address] [place] [address] Chastity Montero MD Dermatology 09/23/[address] [place] [address] 98 [place], [place] [address] Johnnie Alcocer MD Surgeon General Surgery 03/23/[address] [place], [place] [address] Danni Marcus, CHANDLER Personal Advocate & 01/09/1901/17 Liaison (PAL) Kyle King Complex 04/23/19 Svetlana Osman, Pharmacist Pharmacotherapy 04/23/19 [place] [address] [place] [address] Haylie Cheung, Pharmacist Pharmacist 09/11/19 [place] [address] [place] [address] Opal, Assigned Sleep 05/08/20 03/27/21 Kendall Meehan MD Provider [address] [facility] 106 [place] [address] Jaiden Holcomb Assigned PCP 05/24/20 MD Jayesh 909 [place], [place] [address] Ruth John MD Assigned Infectious 01/29/21 07/03/21 [facility] INFECTIOUS Disease Provider [facility] [address] [place] [address] 245 [place], [place] [phone] Kajal Huggins MD Assigned Neuroscience 01/29/21 10/23/21 2945 [facility] [address] Provider [address] [place], [place] [phone] Patience Toussaint NP Assigned Surgical 01/29/21 02/11/22 2945 [facility] Provider [address] [place], [place] [id number] documented as of this encounter"
--- OUTSIDE RECORDS SUMMARY | 2022-06-15 12:45 | XMS_ITS | Encounter Summary ---
:1945 Author Organization [place] Address [address] [place] [address] Care Team Providers Name Role Phone Chastity Montero MD Unavailable [phone] Johnnie Alcocer MD Unavailable Danni Marcus RN Unavailable Unavailable Mtm, Ea Complex Unavailable Unavailable Svetlana Osman [facility] Unavailable [phone] Haylie Cheung [facility] Unavailable [phone] Jaiden Holcomb MD Primary Care Provider Kendall Joseph MD Unavailable Jaiden Holcomb MD Unavailable [phone] Ruth John MD Unavailable Kajal Huggins MD Unavailable Patience Toussaint NP Unavailable Encounter Details Date Type Department Care Team Description 03/08/2021 Orders Only [facility] Jaiden Holcomb Press ure injury of Clinic Yarelis Mcconnell MD left buttock, stage 4 [address] [place] 909 [facility] (H) (Primary Dx) [place], [place] [address] [address] [address] [place] [address] Social History Tobacco Use Types Packs/Day [...] D Haylie Cheung, [facility] 14[address] [facility] [place] [address] (Lena max) 11/15/2022 Virtual Visit IM/Peds Yane Barraza MD 7345 [facility] [place] [phone] (Wo rk) 03/03/2023 Virtual Visit Neurology Erlinda Barber MD 420 [facility] 295 [place] [address] (Wo winter) documented as of this encounter Visit Diagnoses Diagnosis Pressure injury of left buttock, stage 4 (H) - Primary documented in this encounter Additional Health Concerns Assessment Noted Time PHQ-9 Depression Total Score: 4 04/12/2019 7:03 AM CDT documented as of this encounter Care Teams Shirt Maker Relationship Specialty Start Date End Date Jaiden Holcomb PCP - General Internal Medicine 02/13/2010/03 MD Jayesh [address] [facility] [address] [place] [id number] Chastity Montero MD Dermatology 09/23/14 420 [facility] 98 [place], [place] [address] Johnnie Alcocer MD Surgeon General Surgery 03/23/[address] [place], [place] [address] Danni Marcus, CHANDLER Personal Advocate & 01/09/1901/17 Liaison (PAL) Kyle King Complex 04/23/19 Svetlana Osman, Pharmacist Pharmacotherapy 04/23/19 [facility] [address] [place], [place] [id number] Haylie Cheung, Pharmacist Pharmacist 09/11/19 [facility] [address] [facility] [address] [place], [place] [phone] Opal, Assigned Sleep 05/08/20 03/27/21 Kendall Meehan MD Provider [address] [facility] 106 [place], [place] [address] Jaiden Holcomb Assigned PCP 05/24/20 MD Jayesh 909 [place], [place] [address] Ruth John MD Assigned Infectious 01/29/21 07/03/21 [facility] INFECTIOUS Disease Provider [facility] 1973 [facility] 245 [place], [place] [phone] Kajal Huggins MD Assigned Neuroscience 01/29/21 10/23/21 2945 [facility] Provider [address] [place], [place] [phone] Patience Toussaint, VIANEY Assigned Surgical 01/29/21 02/11/22 2945 [facility] Provider [address] [place] [address] documented as of this encounter
--- OUTSIDE RECORDS SUMMARY | 2022-06-15 12:45 | XMS_ITS | Encounter Summary ---
:1945 Author Organization [place] Address [address] [place] [address] Care Team Providers Name Role Phone Chastity Montero MD Unavailable [phone] Johnnie Alcocer MD Unavailable Danni Marcus RN Unavailable Unavailable Mtm, Ea Complex Unavailable Unavailable Svetlana Osman [facility] Unavailable [phone] Haylie Cheung [facility] Unavailable [phone] Jaiden Holcomb MD Primary Care Provider Kendall Joseph MD Unavailable Jaiden Holcomb MD Unavailable [phone] Ruth John MD Unavailable Kajal Huggins MD Unavailable Patience Toussaint NP Unavailable Reason for Referral Specialty Diagnoses / Procedures Referred By Contact Refer red To Contact Jaiden Holcomb MD [address] [facility] [place] [address] Referral ID Status Reason Start Date Expiration Date Visits Requ ested Visits Authorized Reason for Visit Reason Onset Date Comments Anticoagulation 03/18/2021 Yearly INR renewal Encounter Details Date Type Department Care Team Description 03/18/2021 Documentation Only [facility] Zhang, Anti coagulation Clinic Yarelis Jaiden (Yearly INR renewal) 7273 BendBarb Mcconnell MD [address] [place] [phone] Social History Tobacco Use Types Packs/Day Years [...] encounter Progress Notes Fadumo Davies RN - 03/18/2021 5:52 PM CDT ANTICOAGULATION MANAGEMENT Charlette Brush due for annual renewal of referral to anticoagulation monitoring. Order pended for your review and signature. ANTICOAGULATION SUMMARY Warfarin indication(s) DVT Heart valve present? NO Current goal range INR: 2.0-3.0 Goal appropriate for indication? Yes, INR 2-3 appropriate for hx of DVT, PE, hypercoagulable state, Afib, LVAD, or bileaflet AVR without risk factors Current duration of therapy Indefinite/fpc therapy Time in Therapeutic Range (TTR) (Goal > 60%) 79.1% Office visit with referring provider's group within last year yes on 12/04/20 Fadumo Davies RN Jaiden Holcomb MD - 03/18/2021 5:52 PM CDT Annual referral should be signed. Thanks. Jaiden Holcomb MD Internal Medicine [facility] [place] documented in this encounter Plan of Treatment Upcoming Encounters Date Type Specialty Care Team Description 11/15/2022 Virtual Visit Pharm Haylie Gonzalez, [facility] [address] [place] [address] [place] [id number] (Wo rk) 11/15/2022 Virtual Visit [place] [address] [place] [address] [place] [address] (Wo rk) 03/03/2023 Virtual Visit Neurology Erlinda Barber MD [address] [facility] 295 [place], [place] [address] (Wo rk) Scheduled Referrals Name Type Priority Associated Diagnoses Order S [facility] Anticoagulation Clinic Referral Routine Paroxysmal atrial Ordered: Referral fibrillation (H) 03/19/2021 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 documented as of this encounter Visit Diagnoses Diagnosis Essential hypertension, benign - Primary Paroxysmal atrial fibrillation (H) Atrial fibrillation 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 embolism documented in this encounter Additional Health Concerns Assessment Noted Time PHQ-9 Depression Total Score: 4 04/12/2019 7:03 AM CDT documented as of this encounter Care Teams Electronic Resources Librarian Relationship Specialty Start Date End Date Jaiden Holcomb PCP - General Internal Medicine 02/13/2010/03 MD Jayesh [address] [place] [address] [place] [id number] Chastity Montero MD Dermatology 09/23/14 [facility] [address] [place], [place] [address] Johnnie Alcocer MD Surgeon General Surgery 03/23/[address] [place], [place] [address] Danni Marcus, CHANDLER Personal Advocate & 01/09/1901/17 Liaison (PAL) Mtkinsey, Ea Complex 04/23/19 Svetlana Osman, Pharmacist Pharmacotherapy 04/23/19 [facility] [address] [place] [address] Haylie Cheung, Pharmacist Pharmacist 09/11/19 [facility] [address] [place], [place] [id number] Opal, Assigned Sleep 05/08/20 03/27/21 Kendall Meehan MD Provider [address] [place], [place] [address] Jaiden Holcomb Assigned PCP 05/24/20 MD Jayesh 909 [place], [place] [address] Ruth John MD Assigned Infectious 01/29/21 07/03/21 [facility] INFECTIOUS Disease Provider [facility] [address] [facility] 245 [place], [place] [id number] Kajal Huggins MD Assigned Neuroscience 01/29/21 10/23/[address] [place] [address] Provider [address] [place] [address] Patience Toussaint NP Assigned Surgical 01/29/21 02/11/22 2945 [facility] Provider [address] [place] [address] documented as of this encounter
--- OUTSIDE RECORDS SUMMARY | 2022-06-15 12:45 | XMS_ITS | Encounter Summary ---
:1945 Author Organization [place] Address [facility]0 [place] [address] Care Team Providers Name Role Phone Chastity Montero MD Unavailable [phone] Johnnie Alcocer MD Unavailable Danni Marcus RN Unavailable Unavailable Mtm, Ea Complex Unavailable Unavailable Svetlana Osman [facility] Unavailable [phone] Haylie Cheung [facility] Unavailable [phone] Jaiden Holcomb MD Primary Care Provider Kendall Joseph MD Unavailable Jaiden Holcomb MD Unavailable Ruth John MD Unavailable Kajal Huggins MD Unavailable Patience Toussaint NP Unavailable Reason for Visit Reason Onset Date Comments Erroneous encounter-disregard 03/25/2021 Encounter Details Date Type Department Care Team Description 03/25/2021 [facility] Erlinda Barber MD Erroneous Neurology Clinic [address] [facility] enco unter-disregard [place] 295 [address] [place], [place] 3rd Floor [address] [place], [place] [phone] (Wo rk) [address] [phone] Social History Tobacco Use Types Packs/Day Years [...] or relatives? How often do you attend restorationism or More than 4 times per year 05/03/2021 hindu services? Do you belong to any clubs or No 05/03/2021 organizations such as restorationism groups, unions, fraternal or athletic groups, or [...] Gonzalez, [facility] [address] [place] [address] (Wo rk) 11/15/2022 Virtual Visit IM/Peds Yane Barraza MD [address] [facility] [place] [address] (Wo rk) 03/03/2023 Virtual Visit Neurology Erlinda Barber MD 420 [facility] 295 [place] [address] (Wo rk) documented as of this encounter Visit Diagnoses Not on filedocumented in this encounter Additional Health Concerns Assessment Noted Time PHQ-9 Depression Total Score: 4 04/12/2019 7:03 AM CDT documented as of this encounter Care Teams Product Safety Associate Relationship Specialty Start Date End Date Jaiden Holcomb PCP - General Internal Medicine 02/13/2010/03 MD Jayesh [address] [facility] [address] [place], [place] [phone] Chastity Montero MD Dermatology 09/23/14 420 [facility] 98 [place], [place] [address] Johnnie Alcocer MD Surgeon General Surgery 03/23/[address] [place], [place] [address] Danni Marcus, CHANDLER Personal Advocate & 01/09/1901/17 Liaison (PAL) Kyle King Complex 04/23/19 Svetlana Osman, Pharmacist Pharmacotherapy 04/23/19 [facility] [address] [place], [place] [id number] Haylie [place]ung, Pharmacist Pharmacist 09/11/19 [facility] [address] [place] [address] Opal, Assigned Sleep 05/08/20 03/27/21 Kendall Meehan MD Provider [address] [facility] 106 [place], [place] [address] Jaiden Holcomb Assigned PCP 05/24/20 MD Jayesh 909 [place], [place] [phone] Ruth John MD Assigned Infectious 01/29/21 07/03/21 [facility] INFECTIOUS Disease Provider [facility] 1973 [facility] 245 [place], [place] [id number] Kajal Huggins MD Assigned Neuroscience 01/29/21 10/23/21 2945 [facility] Provider [address] [place], [place] [id number] Patience Toussaint, VIANEY Assigned Surgical 01/29/21 02/11/22 2945 [facility] Provider [address] [place] [address] documented as of this encounter
--- OUTSIDE RECORDS SUMMARY | 2022-06-15 12:45 | XMS_ITS | Encounter Summary ---
:1945 Author Organization [place] Address [address] [place] [address] Care Team Providers Name Role Phone Chastity Montero MD Unavailable [phone] Johnnie Alcocer MD Unavailable Danni Marcus RN Unavailable Unavailable Mtm, Ea Complex Unavailable Unavailable Svetlana Osman [facility] Unavailable [phone] Haylie Cheung [facility] Unavailable [phone] Jaiden Holcomb MD Primary Care Provider [phone] Kendall Joseph MD Unavailable Jaiden Holcomb MD Unavailable [phone] Ruth John MD Unavailable Kajal Huggins MD Unavailable Patience Toussaint NP Unavailable Brook Sánchez MD Unavailable Yane Barraza MD Primary Care Provider Osmar Kidd MD Unavailable Erlinda Barber MD Unavailable Yane Barraza MD Primary Care Provider Lenore Alcala MD Unavailable Haylie Cheung [facility] Unavailable [phone] Gaye Patrick RN Unavailable Unavailable Michela, Kenya LAINEZ LANDFILL ATTENDANT Unavailable [phone] Hayley German Farrah OD Unavailable Haylie Cheung [facility] Unavailable [phone] Reason for Visit Reason Onset Date Comments Referral 03/17/2021 Urgent referral/appo intment request Encounter Details Date Type Department Care Team Description 03/17/2021 Telephone [facility] Unknown Referral ( Urgent Infectious Disease Clinic re ferral/appointment [place] request) [address] [place] [phone] Social History Tobacco Use Types Packs/Day [...] this encounter Miscellaneous Notes Telephone Encounter - GlennGaye - 03/24/2021 4:17 PM CDT Tiffanie stated urgent referral is still needed and pt has not been contacted for an appt. Please callpt [facility] for appt. Call with any questions: [phone] Telephone Encounter - Jaycee Atkinson - 03/17/2021 11:55 AM CDT [facility] Phone Message May a detailed message be left on voicemail: yes Reason for Call: Other: Patient is being referred to be seen for a pressure sore. [facility] Urgent appointment request by referring clinic. Sending encounter to clinic for review and scheduling due to urgent appointment request. Please review and call patient to schedule. Action Taken: Message routed to: [facility] [place] [place] Travel Screening: Not Applicable documented in this encounter Plan of Treatment Upcoming Encounters Date Type Specialty Care Team Description 11/15/2022 Virtual Visit Pharm Haylie Gonzalez, [facility] [address] [facility] [place] [address] (Wo rk) 11/15/2022 Virtual Visit IM/Peds Yane Barraza MD [address] [place] [address] [place] [address] (Wo winter) 03/03/2023 Virtual Visit Neurology Erlinda Barber MD 420 [facility] 295 [place] [address] (Wo rk) documented as of this encounter Visit Diagnoses Not on filedocumented in this encounter Additional Health Concerns Assessment Noted Time PHQ-9 Depression Total Score: 4 04/12/2019 7:03 AM CDT documented as of this encounter Care Teams Outdoor Advertising Leasing Agent Relationship Specialty Start Date End Date Jaiden Holcomb PCP - General Internal Medicine 02/13/2010/03 MD Jayesh [address] [place] [address] [place] [address] Yane Barraza MD PCP - General Internal Medicine 10/04/21 12/07/[address] [place] [address] [place] [phone] Yane Barraza MD PCP - General Internal Medicine 12/08/21 3305 [facility] [place] [address] Chastity Montero MD Dermatology 09/23/14 MD 420 [facility] 98 [place], [place] [address] Johnnie Alcocer MD Surgeon General Surgery 03/23/[address] [place] [address] Danni Marcus, CHANDLER Personal Advocate & 01/09/1901/17 Liaison (PAL) Fernando, Ea Complex 04/23/19 Svetlana Osman, Pharmacist Pharmacotherapy 04/23/19 [facility] [address] [place], [place] [phone] Haylie Cheung, Pharmacist Pharmacist 09/11/19 [facility] [address] [place] [address] Opal, Assigned Sleep 05/08/20 03/27/21 Kendall Meehan MD Provider [address] [facility] 106 [place], [place] [address] Jaiden Holcomb Assigned PCP 05/24/20 MD Jayesh 909 [place], [place] [address] Ruth John MD Assigned Infectious 01/29/21 07/03/21 [facility] INFECTIOUS Disease Provider [facility] 1973 [facility] 245 [place], [place] [phone] Kajal Huggins MD Assigned Neuroscience 01/29/21 10/23/[address] Provider [address] [place], [place] [address] Patience Toussaint NP Assigned Surgical 01/29/21 02/11/22 2945 [facility] Provider [address] [place], [place] [phone] Brook Sánchez MD Assigned Infectious 07/04/21 909 [facility] SE Disease Provider [place], [place] [address] Osmar Kidd MD Assigned Sleep 09/26/[address] Provider [place], [place] [address] Erlinda Barber MD Assigned Neuroscience 10/24/21 420 [facility] [address] Provider [place], [place] [address] Lenore Alcala MD Assigned Heart and 12/18/21 01/21/[address]ESS[address] Vascular Provider [address] [place] [address] Haylie [place]ung, Assigned MTM 01/08/22 [facility] Pharmacist [address] [facility] [place] [phone] Gaye Patrick, RN Personal Advocate & 01/18/22 Liaison (PAL) Kenya Abernathy APRN Assigned Heart and 01/22/22 LANDFILL ATTENDANT Vascular Provider [address] [place] [address] Hayley German, Assigned Surgical 02/12/[address] [facility] [place] [address] Haylie Cheung, Assigned MTM 04/13/22 [facility] Pharmacist Amanda [place], [place] [address] documented as of this encounter
--- OUTSIDE RECORDS SUMMARY | 2022-06-15 12:45 | XMS_ITS | Encounter Summary ---
:1945 Author Organization [place] Address [address] [place] [address] Care Team Providers Name Role Phone Chastity Montero MD Unavailable [phone] Johnnie Alcocer MD Unavailable Danni Marcus RN Unavailable Unavailable Mtm, Ea Complex Unavailable Unavailable Svetlana Osman [facility] Unavailable [phone] Haylie Cheung [facility] Unavailable [phone] Jaiden Holcomb MD Primary Care Provider Kendall Joseph MD Unavailable Jaiden Holcomb MD Unavailable [phone] Ruth John MD Unavailable Kajal Huggins MD Unavailable Patience Toussaint NP Unavailable Encounter Details Date Type Department Care Team Description 01/29/2021 Anticoagulation Therapy [facility] Zhang, 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 embolism (Primary Dx); Visit Clinic Yarelis Hwang terminal makeup operator current use of ant icoagulant therapy; 2560 HornickBarb [place]onnell MD Paroxysmal atrial fibrillation (H) [address] [place] [address] [facility] [phone] Social History Tobacco Use [...] More than 4 times per year 05/03/2021 zoroastrian services? Do you belong to any clubs [...] encounter Progress Notes Brook Flores RN - 01/29/2021 10:34 AM CDT Janie ARTEAGA calling with todays INR of 3.2 Please call [phone] with dosing. Brook De Luna RN, BSN, PHN Anticoagulation Nurse [phone] Nicola Wagner RN - 01/29/2021 10:34 AM CDT ANTICOAGULATION MANAGEMENT Charlette Stilessevennithin 76 year old female is on warfarin with supratherapeutic INR result. (Goal INR 2.0-3.0) Recent labs: (last 7 days) 01/29/21 0000 INR 3.2 ASSESSMENT Source(s): Home Care/Facility Nurse ??? Warfarin doses taken: Warfarin taken as instructed ??? Diet: No new diet changes identified ??? New illness, injury, or hospitalization: No ??? Medication/supplement changes: None noted ??? Signs or symptoms of bleeding or clotting: No ??? Previous INR: Therapeutic last visit; previously outside of goal range ??? Additional findings: None. No findings to explain elevated INR. PLAN Recommended plan for no diet, medication or health factor changes affecting INR Dosing Instructions: Decrease your warfarin dose (7% change) with next INR in 1 week Summary As of 01/29/2021 Full warfarin instructions: 5 mg every Fri; 10 mg all other days Next INR check: 02/05/2021 Telephone call with home care nurse Janie who verbalizes understanding and agrees to plan Orders given to Homecare nurse/facility to recheck Education provided: Target INR goal and significance of current INR result Plan made per [facility] anticoagulation protocol iNcola Wagner RN Anticoagulation Clinic 01/29/2021 Anticoagulation Episode Summary Current INR goal: 2.0-3.0 TTR: 81.0 % (1 y) Target end date: Indefinite Send INR reminders to: [facility] Indications 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] terminal makeup operator current use of 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 [Z79.01] Paroxysmal atrial fibrillation (H) [I48.0] Comments: Anticoagulation Care Providers Provider Role Specialty Phone number Galdino Valdez MD Referring Family Medicine [phone] Lucero Stevenson MD Responsible Internal Medicine [phone] documented in this encounter Plan of Treatment Upcoming Encounters Date Type Specialty Care Team Description 11/15/2022 Virtual Visit Pharm Haylie Gonzalez, [facility] [address] [facility] [place] [address] (Wo rk) 11/15/2022 Virtual Visit IM/PedYane Muir MD [address] [facility] [place] [address] (Wo rk) 03/03/2023 Virtual Visit Neurology Erlinda Barber MD [address] [place] [address] 295 [place], [place] [address] (Wo rk) documented as of this encounter Procedures Procedure Name Priority Date/Time Associated Diagnosis Comme nts INR Routine 01/29/2021 Results for thi s procedure are in the resu lts section. documented in this encounter Results INR (01/29/2021) P athologist Signature INR 3.2 EXTERNAL LAB Specimen (Source) Anatomical Location Collection Method / Collectio n Time Received Time / Laterality Volume Blood 01/29/2021 Resulting Agency Comment Home care Patient Reported LAB - BLOOD ORDERABLES Performing Organization Address City/State/ZIP Code Phon e Number EXTERNAL LAB EXTERNAL LAB External Lab documented in this encounter Visit Diagnoses Diagnosis 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 embolism - Primary terminal makeup operator current use of anticoagulant t herapy Paroxysmal atrial fibrillation (H) Atrial fibrillation documented in this encounter Additional Health Concerns Assessment Noted Time PHQ-9 Depression Total Score: 4 04/12/2019 7:03 AM CDT documented as of this encounter Care Teams Filling Separator Relationship Specialty Start Date End Date Jaiden Holcomb PCP - General Internal Medicine 02/13/2010/03 MD Jayesh [address] [place] [address] [place] [address] Chastity Montero MD Dermatology 09/23/[address] [place] [address] 98 [place], [place] [address] Johnnie Alcocer MD Surgeon General Surgery 03/23/[address] [place] [address] Danni Marcus, CHANDLER Personal Advocate & 01/09/1901/17 Liaison (PAL) Fernando, Ea Complex 04/23/19 Svetlana Osman, Pharmacist Pharmacotherapy 04/23/19 [facility] [address] [place] [address] Haylie Cheung, Pharmacist Pharmacist 09/11/19 [facility] [address] [place] [address] Maddiefauzia, Assigned Sleep 05/08/20 03/27/21 Kendall Meehan MD Provider [address] [place] [address] 106 [place], [place] [address] Jaiden Holcomb Assigned PCP 05/24/20 MD Jayesh 909 [place], [place] [address] Ruth John MD Assigned Infectious 01/29/21 07/03/21 [facility] INFECTIOUS Disease Provider [facility] [address] [place] [address] [address] [place], [place] [phone] Kajal Huggins MD Assigned Neuroscience 01/29/21 10/23/21 2945 [facility] SUITE Provider [address] [place], [place] [phone] Patience Toussaint NP Assigned Surgical 01/29/21 02/11/22 2945 [facility] Provider [address] [place] [address] documented as of this encounter
--- OUTSIDE RECORDS SUMMARY | 2022-06-15 12:45 | XMS_ITS | Encounter Summary ---
:1945 Author Organization [place] Address [address] [place] [address] Care Team Providers Name Role Phone Chastity Montero MD Unavailable [phone] Johnnie Alcocer MD Unavailable Danni Marcus RN Unavailable Unavailable Mtm, Ea Complex Unavailable Unavailable Svetlana Osman [facility] Unavailable [phone] Haylie Cheung [facility] Unavailable [phone] Jaiden Holcomb MD Primary Care Provider [phone] Kendall Joseph MD Unavailable Jaiden Holcomb MD Unavailable [phone] Ruth John MD Unavailable Kajal Huggins MD Unavailable Patience Toussaint NP Unavailable Reason for Referral Consultation (Routine) - Closed Specialty Diagnoses / Procedures Referred By Contact Refer red To Contact Infectious Diseases Diagnoses Pressure sore Generic External Data Infectious Disease Department [address] [place] [address] Phone: Fax: Referral ID Status Reason Start Date Expiration Date Visits Requ ested Visits Authorized [id number] Closed 03/16/2021 03/16/2022 1 1 Encounter Details Date Type Department Care Team Description 03/16/2021 Transcribe Orders GENERIC EXTERNAL Provider, Generic P nita espinoza DATA DEPARTMENT External Data (Primary Dx ) Social History Tobacco Use Types Packs/Day Years [...] or relatives? How often do you attend religion or More than 4 times per year 05/03/2021 pentecostal services? Do you belong to any clubs or No 05/03/2021 organizations such as religion groups, unions, fraternal or athletic groups, or [...] Pharm Haylie Gonzalez, [facility] [address] [facility] [place] [address] (Wo rk) 11/15/2022 Virtual Visit [place] [address] [place] [address] [place] [address] (Wo rk) 03/03/2023 Virtual Visit Neurology Erlinda Barber MD [address] [facility] 295 [place], [place] [address] (Wo winter) Scheduled Referrals Name Type Priority Associated Diagnoses Order S chedule Infectious Disease Referral STAT Pressure sore Ordered: 03/16/2021 Referral documented as of this encounter Visit Diagnoses Diagnosis Pressure sore - Primary Pressure ulcer, unspecified site documented in this encounter Additional Health Concerns Assessment Noted Time PHQ-9 Depression Total Score: 4 04/12/2019 7:03 AM CDT documented as of this encounter Care Teams Nurse Unit Manager Relationship Specialty Start Date End Date Jaiden Holcomb PCP - General Internal Medicine 02/13/2010/03 MD Jayesh [address] [facility] [address] [place] [id number] Chastity Montero MD Dermatology 09/23/14 420 [facility] [address] [place], [place] [address] Johnnie Alcocer MD Surgeon General Surgery 03/23/17 [address] [facility] 300 [place], [place] [address] Danni Marcus, CHANDLER Personal Advocate & 01/09/1901/17 Liaison (PAL) Fernando, Ea Complex 04/23/19 Svetlana Osman, Pharmacist Pharmacotherapy 04/23/19 [facility] [address] [place], [place] [id number] Haylie Cheung, Pharmacist Pharmacist 09/11/19 [facility] [address] [place] [id number] Opal, Assigned Sleep 05/08/20 03/27/21 Kendall Meehan MD Provider [address] [facility] 106 [place], [place] [address] Jaiden Holcomb Assigned PCP 05/24/20 MD Jayesh 909 [place], [place] [address] Ruth John MD Assigned Infectious 01/29/21 07/03/21 [facility] INFECTIOUS Disease Provider [facility] [address] [place] [address] [address] [place] [address] Kajal Huggins MD Assigned Neuroscience 01/29/21 10/23/21 [address] [facility] [address] Provider [address] [place] [address] Patience Toussaint NP Assigned Surgical 01/29/21 02/11/[address] [place] [address] Provider [address] [place] [address] documented as of this encounter
--- OUTSIDE RECORDS SUMMARY | 2022-06-15 12:46 | XMS_ITS | Encounter Summary ---
:1945 Author Organization [place] Address [address] [place] [address] Care Team Providers Name Role Phone Chastity Montero MD Unavailable [phone] Johnnie Alcocer MD Unavailable Danni Marcus RN Unavailable Unavailable Mtm, Ea Complex Unavailable Unavailable Svetlana Osman [facility] Unavailable [phone] Haylie Cheung [facility] Unavailable [phone] Jaiden Holcomb MD Primary Care Provider [phone] Kendall Joseph MD Unavailable Erlinda Barber MD Unavailable Jaiden Holcomb MD Unavailable [phone] Encounter Details Date Type Department Care Team Description 12/09/2020 Records - [facility] CONOR CONVERSION Provider, Histor ical Social History Tobacco Use Types Packs/Day Years [...] many times do you More than three ysiel es a week 05/03/2021 talk on the phone with family, friends, or neighbors? How often do you get together with friends Twice a week 05/03/2021 or relatives? How often do you attend mormon or More than 4 times per year 05/03/2021 muslim services? Do you belong to any clubs or No 05/03/2021 organizations such as mormon groups, unions, fraternal or athletic groups, or [...] been in contact with No / Unsure 12/04/2020 8:40 AM CDT someone who was confirmed or suspected to have Coronavirus / COVID-19? documented as of this encounter Plan of Treatment Upcoming Encounters Date Type Specialty Care Team Description 11/15/2022 [facility] [address] [facility] [address] [place] [phone] (Wo rk) 11/15/2022 Virtual Visit IM/Peds Yane Barraza MD [address] [facility] [place] [phone] (Wo rk) 03/03/2023 Virtual Visit Neurology Erlinda Barber MD [address] [place] [facility] 295 [place], [place] [phone] (Wo rk) documented as of this encounter Procedures Procedure Name Priority Date/Time Associated Diagnosis Comme nts US MISC(FCIS) US Routine 01/25/2002 12:00 AM Resu lts for this ORDER CDT procedure are i n the results section. documented in this encounter Results US Miscellaneous US Order (01/25/2002 12:00 AM CDT) Anatomical Region Laterality Modality Other Specimen (Source) Anatomical Location Collection Method / Collectio n Time Received Time / Laterality Volume Narrative 01/25/2002 12:00 AM CDT See Historical Hospital Medical Record f or documentation Procedure Note Provider, Historical - 12/09/2020Formatt ing of this note might be different from the original. See Historical Hospital Medical Record f or documentation Historical Provider IMG US ORDERABLES documented in this encounter Visit Diagnoses Not on filedocumented in this encounter Additional Health Concerns Assessment Noted Time PHQ-9 Depression Total Score: 4 04/12/2019 7:03 AM CDT documented as of this encounter Care Teams Geotechnical Engineering Technician Relationship Specialty Start Date End Date Jaiden Holcomb PCP - General Internal Medicine 02/13/2010/03 MD Jayesh [address] [facility] [address] Chastity Montero MD Dermatology 09/23/14 CT 420 [facility] 98 [place] [address] Johnnie Alcocer MD Surgeon General Surgery 03/23/[address] [place] [address] Danni Marcus, CHANDLER Personal Advocate & 01/09/1901/17 Liaison (PAL) [place], Ea Complex 04/23/19 Svetlana Osman, Pharmacist Pharmacotherapy 04/23/19 [facility] [address] [place] [address] Haylie Cheung, Pharmacist Pharmacist 09/11/19 [facility] [address] [place] [address] Opal, Assigned Sleep 05/08/20 03/27/21 Kendall Meehan MD Provider [address] [place] [address] [place] [address] Erlinda Barber MD Assigned Neuroscience 05/08/20 01/26/21 420 [facility] 295 [place] [address] Jaiden Holcomb Assigned PCP 05/24/20 MD Jayesh 909 [place] [address] documented as of this encounter
--- OUTSIDE RECORDS SUMMARY | 2022-06-15 12:46 | XMS_ITS | Encounter Summary ---
:1945 Author Organization [place] Address [address] [place] [address] Care Team Providers Name Role Phone Chastity Montero MD Unavailable [phone] Johnnie Alcocer MD Unavailable Danni Marcus RN Unavailable Unavailable Mtm, Ea Complex Unavailable Unavailable Svetlana Osman [facility] Unavailable [phone] Haylie Cheung [facility] Unavailable [phone] Jaiden Holcomb MD Primary Care Provider [phone] Kendall Joseph MD Unavailable Erlinda Barber MD Unavailable Jaiden Holcobm MD Unavailable Encounter Details Date Type Department Care Team Description 11/10/2020 [facility] Only [facility] Jaiden Holcomb Iron deficiency anemia, unspecified iron deficiency anemia type (Primary Dx); Clinic Yarelis Mcconnell MD Paroxysmal atrial fibrillation (H); [address] Prediabetes; [place], [place] Morbid obesity -- BMI 55.6 [address] [address] [place] [address] Social History Tobacco Use [...] More than 4 times per year 05/03/2021 yazidi services? Do you belong to any clubs [...] been in contact with No / Unsure 10/23/2020 10:10 AM CDT someone who was confirmed or suspected to have Coronavirus / COVID-19? documented as of this encounter Plan of Treatment Upcoming Encounters Date Type Specialty Care Team Description 11/15/2022 Virtual Visit Pharm Haylie Gonzalez, [facility] [address] [place] [address] (Wo rk) 11/15/2022 Virtual Visit [place] [address] [place] [address] [place] [address] (Wo rk) 03/03/2023 Virtual Visit Neurology Erlinda Barber MD 420 [facility] 295 [place] [address] (Wo rk) documented as of this encounter Results TSH with free T4 reflex (12/04/2020 9:45 AM CDT) P athologist Signature TSH 1.07 0.40 - 4.00 12/04/2020 [facility] mU/L 3:13 PM CDT [facility] Specimen Anatomical Collection Method Collection Time Receive d Time (Source) Location / / Volume Laterality Blood 12/04/2020 9:45 AM 1 9:46 CDT AM CDT Jaiden Holcomb MD LAB - BLOOD ORDERABLES Performing Organization Address City/[facility]/ZIP Code Phon e Number [address] Ferritin (12/04/2020 9:45 AM CDT) athologist Signature Ferritin 104 8 - 252 12/04/2020 [facility] ng/mL 3:08 PM CDT [facility] Specimen Anatomical Collection Method Collection Time Receive d Time (Source) Location / / Volume Laterality Blood 12/04/2020 9:45 AM 1 9:46 CDT AM CDT Jaiden Holcomb MD LAB - BLOOD ORDERABLES Performing Organization Address City/[facility]/ZIP Code Phon e Number [address] Hemoglobin FUTURE anytime (12/04/2020 9:45 AM CDT) athologist Signature Hemoglobin 14.9 11.7 - 15.7 12/04/2020 [place] g/dL 10:07 AM CDT [facility] Specimen Anatomical Collection Method Collection Time Receive d Time (Source) Location / / Volume Laterality Blood 12/04/2020 9:45 AM 1 9:46 CDT AM CDT Jaiden Holcomb MD LAB - BLOOD ORDERABLES Performing Organization Address City/[facility]/ZIP Code Phon e Number [address] [address] documented in this encounter Visit Diagnoses Diagnosis Iron deficiency anemia, unspecified iron deficiency anemia type - Primary Paroxysmal atrial fibrillation (H) Atrial fibrillation Prediabetes Other abnormal glucose Morbid obesity -- BMI 55.6 Morbid obesity documented in this encounter Additional Health Concerns Assessment Noted Time PHQ-9 Depression Total Score: 4 04/12/2019 7:03 AM CDT documented as of this encounter Care Teams Airplane Patrol Pilot Relationship Specialty Start Date End Date Jaiden Holcomb PCP - General Internal Medicine 02/13/2010/03 MD Jayesh [address] [facility] [address] [place], [place] [phone] Chastity Montero MD Dermatology 09/23/14 [place] 420 [facility] 98 [place], [place] [address] Johnnie Alcocer MD Surgeon General Surgery 03/23/[address] [place] [address] Danni Marcus, CHANDLER Personal Advocate & 01/09/1901/17 Liaison (PAL) Fernando, Ea Complex 04/23/19 Svetlana Osman, Pharmacist Pharmacotherapy 04/23/19 [facility] [address] [place], [place] [phone] Haylie Cheung, Pharmacist Pharmacist 09/11/19 [facility] [address] [place] [address] Opal, Assigned Sleep 05/08/20 03/27/21 Kendall Meehan MD Provider [address] [place], [place] [address] Erlinda Barber MD Assigned Neuroscience 05/08/20 01/26/21 420 [facility] [address] Provider [place], [place] [phone] Jaiden Holcomb Assigned PCP 05/24/20 MD Jayesh 9[address] [place] [address] documented as of this encounter
--- OUTSIDE RECORDS SUMMARY | 2022-06-15 12:46 | XMS_ITS | Encounter Summary ---
:1945 Author Organization [facility] Address [address] [place] [address] Care Team Providers Name Role Phone Chastity Montero MD Unavailable [phone] Johnnie Alcocer MD Unavailable Danni Marcus RN Unavailable Unavailable Mtm, Ea Complex Unavailable Unavailable Svetlana Osman [facility] Unavailable [phone] Haylie Cheung [facility] Unavailable [phone] Jaiden Holcomb MD Primary Care Provider [phone] Kendall Joseph MD Unavailable Erlinda Barber MD Unavailable Jaiden Holcomb MD Unavailable [phone] Encounter Details Date Type Department Care Team Description 12/09/2020 Records - [facility] CONOR CONVERSION Provider, Histor ical Social History [...] or relatives? How often do you attend rastafarian or More than 4 times per year 05/03/2021 caodaism services? Do you belong to any clubs or No 05/03/2021 organizations such as rastafarian groups, unions, fraternal or athletic groups, or [...] Cheung, [facility] [address] [facility] [address] [place] [phone] (Wo rk) 11/15/2022 Virtual Visit IM/Peds Yane Barraza MD [address] [facility] [place] [phone] (Wo rk) 03/03/2023 Virtual Visit Neurology Erlinda Barber MD 420 [facility] 295 [place], [place] [phone] (Wo rk) documented as of this encounter Procedures Procedure Name Priority Date/Time Associated Diagnosis Comme nts NM NURSE PHARM Routine 01/29/2002 12:00 AM Result s for this STRESS CDT procedure are i n the results section. NM NURSE PHARM Routine 01/29/2002 12:00 AM Result s for this STRESS CDT procedure are i n the results section. documented in this encounter Results NM NURSE PHARM STRESS (01/29/2002 12:00 AM CDT) Anatomical Region Laterality Modality Other Specimen (Source) Anatomical Location Collection Method / Collectio n Time Received Time / Laterality Volume Narrative 01/29/2002 12:00 AM CDT See Historical Hospital Medical Record f or documentation Procedure Note Provider, Historical - 12/09/2020Formatt ing of this note might be different from the original. See Historical Hospital Medical Record f or documentation Historical Provider IMG NM ORDERABLES NM NURSE PHARM STRESS (01/29/2002 12:00 AM CDT) Anatomical Region Laterality Modality Other Specimen (Source) Anatomical Location Collection Method / Collectio n Time Received Time / Laterality Volume Narrative 01/29/2002 12:00 AM CDT See Historical Hospital Medical Record f or documentation Procedure Note Provider, Historical - 12/09/2020Formatt ing of this note might be different from the original. See Historical Hospital Medical Record f or documentation Historical Provider IMG NM ORDERABLES documented in this encounter Visit Diagnoses Not on filedocumented in this encounter Additional Health Concerns Assessment Noted Time PHQ-9 Depression Total Score: 4 04/12/2019 7:03 AM CDT documented as of this encounter Care Teams Broadcast Operations Director Relationship Specialty Start Date End Date Jaiden Holcomb PCP - General Internal Medicine 02/13/2010/03 MD Jayesh [address] [facility] [address] Chastity Montero MD Dermatology 09/23/14 420 [facility] 98 [place], [place] [address] Johnnie Alcocer MD Surgeon General Surgery 03/23/[address] [place], [place] [phone] Danni Marcus, CHANDLER Personal Advocate & 01/09/1901/17 Liaison (PAL) Fernando, Ea Complex 04/23/19 Svetlana Osman, Pharmacist Pharmacotherapy 04/23/19 [facility] [address] [place] [address] Haylie Cheung, Pharmacist Pharmacist 09/11/19 [facility] [address] [place], [place] [phone] Opal, Assigned Sleep 05/08/20 03/27/21 Kendall Meehan MD Provider [address] [place] [address] Erlinda Barber MD Assigned Neuroscience 05/08/20 01/26/21 420 [facility] 295 [place] [address] Jaiden Holcomb Assigned PCP 05/24/20 MD Jayesh 909 [place] [address] documented as of this encounter
--- OUTSIDE RECORDS SUMMARY | 2022-06-15 12:46 | XMS_ITS | Encounter Summary ---
:1945 Author Organization [place] Address [address] [place] [address] Care Team Providers Name Role Phone Chastity Montero MD Unavailable [phone] Johnnie Alcocer MD Unavailable Danni Marcus RN Unavailable Unavailable Mtm, Ea Complex Unavailable Unavailable Svetlana Osman [facility] Unavailable [phone] Haylie Cheung [facility] Unavailable [phone] Jaiden Holcomb MD Primary Care Provider [phone] Kendall Joseph MD Unavailable Erlinda Barber MD Unavailable Jaiden Holcomb MD Unavailable [phone] Encounter Details Date Type Department Care Team Description 11/30/2020 Orders Only [facility] Jaiden Holcomb DIAGN OSIS NOT YET Clinic Yarelis Mcconnell MD DEFINED (Primary Dx) [address] [place] [address] [place], [place] [address] [address] [place] [address] Social History Tobacco Use [...] More than 4 times per year 05/03/2021 spiritism services? Do you belong to any clubs or No 05/03/2021 organizations such as bahai groups, unions, fraternal or athletic groups, or [...] Visit Pharm D Haylie Cheung, [facility] [address] [facility] [place] [address] (Wo winter) 11/15/2022 Virtual Visit IM/Peds Yane Barraza MD 3305 [facility] [place] [address] (Wo rk) 03/03/2023 Virtual Visit Neurology Erlinda Barber MD 420 [facility] 295 [place] [address] (Wo rk) documented as of this encounter Procedures Procedure Name Priority Date/Time Associated Diagnosis Comme nts NE MD CERTIFICATION LEASING COORDINATOR Routine 11/30/2020 DIAGNOSIS NOT YET DEFINED PATIENT documented in this encounter Results MD CERTIFICATION LEASING COORDINATOR PATIENT (11/30/2020) Narrative This result has an attachment that is no t available. Jaiden Holcomb MD [employer] documented in this encounter Visit Diagnoses Diagnosis DIAGNOSIS NOT YET DEFINED - Primary documented in this encounter Additional Health Concerns Assessment Noted Time PHQ-9 Depression Total Score: 4 04/12/2019 7:03 AM CDT documented as of this encounter Care Teams Golf Ball Trimmer Relationship Specialty Start Date End Date Jaiden Holcomb PCP - General Internal Medicine 02/13/2010/03 MD Jayesh [address] [facility] [address] [place] [phone] Chastity Montero MD Dermatology 09/23/14 420 [facility] 98 [place] [address] Johnnie Alcocer MD Surgeon General Surgery 03/23/17 [address] [facility] 300 [place], [place] [phone] Danni Marcus, CHANDLER Personal Advocate & 01/09/1901/17 Liaison (PAL) Fernando, Ea Complex 04/23/19 Svetlana Osman, Pharmacist Pharmacotherapy 04/23/19 [facility] [address] [place] [address] Haylie Cheung, Pharmacist Pharmacist 09/11/19 [facility] [address] [place], [place] [phone] Opal, Assigned Sleep 05/08/20 03/27/21 Kendall Meehan MD Provider [address] [place], [place] [address] Erlinda Barber MD Assigned Neuroscience 05/08/20 01/26/21 420 [facility] 295 [place] [address] Jaiden Holcomb Assigned PCP 05/24/20 MD Jayesh 909 [place] [address] documented as of this encounter
--- OUTSIDE RECORDS SUMMARY | 2022-06-15 12:46 | XMS_ITS | Encounter Summary ---
:1945 Author Organization [facility] Address [address] [place] [address] Care Team Providers Name Role Phone Chastity Montero MD Unavailable [phone] Johnnie Alcocer MD Unavailable Danni Marcus RN Unavailable Unavailable Mtm, Ea Complex Unavailable Unavailable Svetlana Osman [facility] Unavailable [phone] Haylie Cheung [facility] Unavailable [phone] Jaiden Holcomb MD Primary Care Provider [phone] Kendall Joseph MD Unavailable Erlinda Barber MD Unavailable Jaiden Holcomb MD Unavailable [phone] Encounter Details Date Type Department Care Team Description 12/04/2020 Orders Only [facility] Par oxysmal atrial fibrillation (H); Yarelis Laboratory Hx Recurrent PE/DVT -- on [facility] [address] [facility] [address] [place] [address] Social [...] or relatives? How often do you attend confucianism or More than 4 times per year 05/03/2021 confucianism services? Do you belong to any clubs or No 05/03/2021 organizations such as confucianism groups, unions, fraScoutforce or athletic groups, or school groups? 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 embolism documented in this encounter Additional Health Concerns Assessment Noted Time PHQ-9 Depression Total Score: 4 04/12/2019 7:03 AM CDT documented as of this encounter Care Teams Senior Abap Developer Relationship Specialty Start Date End Date Jaiden Holcomb PCP - General Internal Medicine 02/13/2010/03 MD Jayesh [address] [place] [address] [place] [address] Chastity Montero MD Dermatology 09/23/14 420 [facility] 98 [place], [place] [address] Johnnie Alcocer MD Surgeon General Surgery 03/23/[address] [place], [place] [phone] Danni Marcus, CHANDLER Personal Advocate & 01/09/1901/17 Liaison (PAL) Fernando Ea Complex 04/23/19 Svetlana Osman, Pharmacist Pharmacotherapy 04/23/19 [facility] [address] [facility] [address] [place], [place] [phone] Haylie Cheung, Pharmacist Pharmacist 09/11/[address] [place], [place] [phone] Opal, Assigned Sleep 05/08/20 03/27/21 Kendall Meehan MD Provider [address] [place], [place] [address] Erlinda Barber MD Assigned Neuroscience 05/08/20 01/26/21 420 [facility] 295 Provider [place], [place] [phone] Jaiden Holcomb Assigned PCP 05/24/20 MD Jayesh 909 [place] [address] documented as of this encounter
--- OUTSIDE RECORDS SUMMARY | 2022-06-15 12:46 | XMS_ITS | Encounter Summary ---
:1945 Author Organization [place] Address [address] [place] [address] Care Team Providers Name Role Phone Chastity Montero MD Unavailable [phone] Johnnie Alcocer MD Unavailable Danni Marcus RN Unavailable Unavailable Mtm, Ea Complex Unavailable Unavailable Svetlana Osman [facility] Unavailable [phone] Haylie Cheung [facility] Unavailable [phone] Jaiden Holcomb MD Primary Care Provider [phone] Kendall Joseph MD Unavailable Erlinda Barber MD Unavailable Jaiden Holcomb MD Unavailable Reason for Visit Reason Comments Medication Refill Encounter Details Date Type Department Care Team Description 12/20/2020 Refill [facility] Doris Agarwal MD Medication Refill Yarelis [address] [facility] [address] [facility] [place] [address] [address] [place] [address] [phone] Social History Tobacco Use Types Packs/Day Years [...] or relatives? How often do you attend scientologist or More than 4 times per year 05/03/2021 nondenominational services? Do you belong to any clubs or No 05/03/2021 organizations such as scientologist groups, unions, fraternal or athletic groups, or [...] Telephone Encounter - Sasha Rueda RN - 12/21/2020 9:54 AM CDT Anticoagulation Monitoring Return Date Recheck Instructions Latest Ref Rng & Units 12/04/2020 01/15/2021 10 mg every day Prescription approved per [facility] Refill Protocol. Sasha Rueda RN Anticoagulation Nurse - [facility] Telephone Encounter - Jolanta Reddy RN - 12/21/2020 9:35 AM CDT Forwarding to the INR. Jolanta Reddy RN Message handled by Nurse Triage. 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 care phlebotomist current use of anticoagulant t herapy documented in this encounter Additional Health Concerns Assessment Noted Time PHQ-9 Depression Total Score: 4 04/12/2019 7:03 AM CDT documented as of this encounter Care Teams Paint Roller Covermaker Relationship Specialty Start Date End Date Jaiden Holcomb PCP - General Internal Medicine 02/13/2010/03 MD Jayesh [address] [place] [address] [place] [address] Chastity Montero MD Dermatology 09/23/[address] [place], [place] [address] Johnnie Alcocer MD Surgeon General Surgery 03/23/17 [address] [facility] [address] [place], [place] [address] Danni Marcus, CHANDLER Personal Advocate & 01/09/1901/17 Liaison (PAL) Fernando, Ea Complex 04/23/19 Svetlana Osman, Pharmacist Pharmacotherapy 04/23/19 [place] [id number] [place], [place] [id number] Haylie Cheung, Pharmacist Pharmacist 09/11/19 [facility] [address] [place] [address] Opal, Assigned Sleep 05/08/20 03/27/21 Kendall Meehan MD Provider [address] [place] [address] Erlinda Barber MD Assigned Neuroscience 05/08/20 01/26/21 [address] [facility] [address] [place] [address] Jaiden Holcomb Assigned PCP 05/24/20 MD Jayesh [address] [place] [address] documented as of this encounter
--- OUTSIDE RECORDS SUMMARY | 2022-06-15 12:46 | XMS_ITS | Encounter Summary ---
:1945 Author Organization [place] Address [address] [place] [address] Care Team Providers Name Role Phone Chastity Montero MD Unavailable [phone] Johnnie Alcocer MD Unavailable Danni Marcus RN Unavailable Unavailable Mtm, Ea Complex Unavailable Unavailable Svetlana Osman [facility] Unavailable [phone] Haylie Cheung [facility] Unavailable [phone] Jaiden Holcomb MD Primary Care Provider [phone] Kendall Joseph MD Unavailable Erlinda Barber MD Unavailable Jaiden Holcomb MD Unavailable [phone] Encounter Details Date Type Department Care Team Description 01/15/2021 Anticoagulation Therapy [facility] Zhang, 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 embolism; Visit Clinic Yarelis Hwang Paroxysmal atrial fibrillati on (H); [address] MD Jayesh 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 current use of anticoagulant t [facility] [address] [place] [address] [address] [facility] [address] Social History Tobacco Use Types [...] or relatives? How often do you attend moravian or More than 4 times per year 05/03/2021 mu-ism services? Do you belong to any clubs or No 05/03/2021 organizations such as moravian groups, unions, fraternal or athletic groups, or [...] as of this encounter Progress Notes Latia Henley RN - 01/15/2021 10:28 AM CDT ANTICOAGULATION MANAGEMENT Charlette Velma Brush 76 year old female is on warfarin with subtherapeutic INR result. (Goal INR 2.0-3.0) Recent labs: (last 7 days) 01/15/21 INR 1.3* ASSESSMENT Source(s): Home Care/Facility Nurse ??? Warfarin doses taken: Warfarin recently held for wound debridement which may be affecting INR. Resumed at usual dose 10 days ago. Patient was not bridged. ??? Diet: No new diet changes identified ??? New illness, injury, or hospitalization: No ??? Medication/supplement changes: None noted ??? Signs or symptoms of bleeding or clotting: No ??? Previous INR: Therapeutic last 2(+) visits ??? Additional findings: patient has resumed home care for wound treatment and they will be checkingINRs PLAN Recommended plan for temporary change(s) affecting INR Dosing Instructions: Booster dose then continue your current warfarin dose with next INR in 1 week Summary As of 01/15/2021 Full warfarin instructions: 01/15: 20 mg; Otherwise 10 mg every day Next INR check: 01/22/2021 Telephone call with home care nurse Janie whom agrees to plan and repeated back plan correctly Orders given to Homecare nurse/facility to recheck Education provided: Target INR goal and significance of current INR result, Monitoring for bleeding signs and symptoms and Monitoring for clotting signs and symptoms Plan made per [facility] anticoagulation protocol Latia Henley RN Anticoagulation Clinic 01/15/2021 Anticoagulation Episode Summary Current INR goal: 2.0-3.0 TTR: 80.1 % (1 y) Target end date: Indefinite Send INR reminders to: [facility] Indications 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] 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 current use of 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 [Z79.01] Paroxysmal atrial fibrillation (H) [I48.0] Comments: Anticoagulation Care Providers Provider Role Specialty Phone number Galdino Valdez MD Referring Family Medicine [phone] Lucero Stevenson MD Responsible Internal Medicine [phone] documented in this encounter Plan of Treatment Upcoming Encounters Date Type Specialty Care Team Description 11/15/2022 Virtual Visit Pharm Haylie Gonzalez, [facility] [address] [facility] [address] (Lena max) 11/15/2022 Virtual [place] [address] [place] [address] [place] [address] (Lena max) 03/03/2023 Virtual Visit Neurology Erlinda Barber MD [address] [facility] [address] [place] [address] (Lena max) documented as of this encounter Procedures Procedure Name Priority Date/Time Associated Diagnosis Comme nts INR Routine 01/15/2021 Results for thi s procedure are in the resu lts section. 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 current use of anticoagulant t herapy documented in this encounter Additional Health Concerns Assessment Noted Time PHQ-9 Depression Total Score: 4 04/12/2019 7:03 AM CDT documented as of this encounter Care Teams Quill Machine Tender Relationship Specialty Start Date End Date Jaiden Holcomb PCP - General Internal Medicine 02/13/2010/03 MD Jayesh [address] [place] [address] Chastity Montero MD Dermatology 09/23/14 [address] [facility] 98 [place], [place] [address] Johnnie Alcocer MD Surgeon General Surgery 03/23/[address] [place], [place] [id number] Danni Marcus, CHANDLER Personal Advocate & 01/09/1901/17 Liaison (PAL) Fernando, Ea Complex 04/23/19 Svetlana Osman, Pharmacist Pharmacotherapy 04/23/19 [facility] [address] [place] [address] Haylie Cheung, Pharmacist Pharmacist 09/11/19 [facility] [address] [place] [address] Opal, Assigned Sleep 05/08/20 03/27/21 Kendall Meehan MD Provider [address] [place], [place] [address] Erlinda Barber MD Assigned Neuroscience 05/08/20 01/26/21 [address] [facility] [address] [place] [address] Jaiden Holcomb Assigned PCP 05/24/20 MD Jayesh [address] [place] [address] documented as of this encounter
--- OUTSIDE RECORDS SUMMARY | 2022-06-15 12:46 | XMS_ITS | Encounter Summary ---
:1945 Author Organization [facility] Address [address] [place] [address] Care Team Providers Name Role Phone Chastity Montero MD Unavailable [phone] Johnnie Alcocer MD Unavailable Danni Marcus RN Unavailable Unavailable Mtm, Ea Complex Unavailable Unavailable Svetlana Osman [facility] Unavailable [phone] Haylie Cheung [facility] Unavailable [phone] Jaiden Holcomb MD Primary Care Provider [phone] Kendall Joseph MD Unavailable Erlinda Barber MD Unavailable Jaiden Holcomb MD Unavailable [phone] Reason for Visit Reason Comments Weight Problem Encounter Details Date Type Department Care Team Description 11/04/2020 Office Visit - M [facility] [place], Obesity, morbid, BMI 50 or higher (H); [facility] and MD Braxton Hypoalbuminemia [facility] [address] [place] [address] [id number] Social History Tobacco Use Types Packs/Day Years [...] Sign Reading Time Taken Comments Blood Pressure - - Pulse - - Temperature - - Respiratory Rate - - Oxygen Saturation - - Inhaled Oxygen Concentration - - Weight 160.6 kg (354 lb) 11/04/2020 11:00 AM CDT Height 170.2 cm (5' 7) 11/04/2020 11:00 AM CDT Body Mass Index 55.44 11/04/2020 11:00 AM CDT documented in this encounter Progress Notes Braxton Lala MD - 11/04/2020 12:15 PM CDT Charlette Brush is 75 y.o. female who presents for a billable video visit today. How would you like to obtain your AVS? MyChart. If dropped from the video visit, the video invitation should be resent by: Text to cell phone: [phone] Will anyone else be joining your video visit? No Video Start Time: 12:15 pm 12:22 PM Has been focused on wound issues lately, poor/slow healing. Gluten free diet mostly. Protein intake good and albumin levels have increased to near normal at 3.3from 3.0 in February Has been off diuretic therapy for a few weeks now. Weight may fluctuate up and down a handful of pounds based from day to day. She had questions about Pro-Stat supplement as it was mentioned to her. Has used her own protein shakes to bridge to meals if needed. Chart review shows albumin of 3.3 (last was 3.0 in February 2020), some spillage into urine collection(missed 2 collections reportedly so data not complete) . Plan: 1. Great work with improving your Albumin lately, you're nearly in the normal range for the first time since your injury in 2017. You do show some spilling of protein in your urine as well and I think 80-100g/day of lean protein sources should continue to optimize your healing potential. 2. We discussed Pro-Stat product today that you had questions about: I think it's reasonable but maynot be necessary given your other protein sources (usually used in Feeding Tube patients unable to get enough orally). 3. Continue to shoot for 1500kcal diet for weight loss. Video-Visit Details Type of service: Video Visit Video End Time (time video stopped): 12:54 PM Originating Location (pt. Location): Home Distant Location (provider location): [facility] [place] Platform used for Video Visit: Doxbrenna documented in this encounter Miscellaneous Notes Patient Instructions - HE - Braxton Lala MD - 11/04/2020 12:15 PM CDT Plan: 1. Great work with improving your Albumin lately, you're nearly in the normal range for the first time since your injury in 2017. You do show some spilling of protein in your urine as well and I think 80-100g/day of lean protein sources should continue to optimize your healing potential. 2. We discussed Pro-Stat product today that you had questions about: I think it's reasonable but maynot be necessary given your other protein sources (usually used in Feeding Tube patients unable to get enough orally). 3. Continue to shoot for 1500kcal diet for weight loss. LEAN PROTEIN SOURCES Getting 20-30 grams of protein, 3 meals daily, is appropriate for most people, some need more but more than about 40 grams per meal is not useful. General rule is drinking one ounce of water per gram of protein eaten over the course of the day: 70grams of protein each day, drink 70 oz of water. Protein Source Portion Calories Grams of Protein Nonfat, plain [place] yogurt (10 grams sugar or less) 3/4 cup (6 oz) 80-100 12-17 Light Yogurt (10 grams sugar or less) 3/4 cup (6 oz) 80-100 6-8 Protein Shake 1 shake 110-180 15-30 Skim/1% Milk or lactose-free milk 1 cup ( 8 oz) 90-100 8 Plain or light, flavored soymilk 1 cup 90-100 7-8 Plain or light, hemp milk 1 cup 110 6 Fat Free or 1% Cottage Cheese 1/2 cup 90 15 Part skim ricotta cheese 1/2 cup 100 14 Part skim or reduced fat cheese slices 1 ounce 65-80 8 Mozzarella String Cheese 1 80 8 Canned tuna, chicken, crab or salmon (canned in water) 1/2 cup 100 15-20 White fish (broiled, grilled, baked) 3 ounces 100 21 [place]/Tuna (broiled, grilled, baked) 3 ounces 150-180 21 Shrimp, Scallops, Lobster, Crab 3 ounces 100 21 Pork loin, Pork Tenderloin 3 ounces 150 21 Boneless, skinless chicken /turkey breast (broiled, grilled, baked) 3 ounces 120 21 [place], [place], [place], and Venison 3 ounces 120 21 Lean cuts of red meat and pork (sirloin, round, tenderloin, flank, ground 93%-96%) 3 ounces 170 21 Lean or Extra Lean Ground [place] 1/2 cup 150 20 90-95% Lean [place] Burger 1 melanie 140-180 21 Low-fat casserole with lean meat 3/4 cup 200 17 Luncheon Meats (turkey, lean ham, roast beef, chicken) 3 ounces 100 21 Egg (boiled, poached, scrambled) 1 Egg 60 7 Egg Substitute 1/2 cup 70 10 Nuts (limit to 1 serving per day) 3 Tbsp. 150 7 Nut [place] (peanut, almond) Limit to 1 serving or less daily 1 Tbsp. 90 4 Soy Burger (varies) 1 90-130 15 Garbanzo, Black, [place] Beans 1/2 cup 110 7 Refried Beans 1/2 cup 100 7 Kidney and [place] beans 1/2 cup 110 7 Tempeh 3 oz 175 18 Vegan crumbles 1/2 cup 100 14 Tofu 1/2 cup 110 14 [place] (beans and extra lean beef or turkey) 1 cup 200 23 Lentil Stew/Soup 1 cup 150 12 Black Campbell Soup 1 cup 175 12 Example Meal Plan for a 3593-2092 Calorie Diet: In order to fuel your weight loss properly and avoid hunger-induced overeating later in the day, foryour height and weight, you will enjoy the most success by following the diet below or similar with adjustments based on your particular tastes and preferences. Exercise may influence speed, amount of weight loss further. I recommend getting into a meal routine and keeping it similar day to day in the beginning so you don???t have to think too hard about what you???re going to make/eat. Keep snacks healthy, ideally containing protein and some vegetables. Non-processed food is preferable to packaged items. Eat at leasta few crunchy green vegetables if having a snack, which should be 2-3 hours after your mealtimes(prepare these ahead of time for ease of use). Drink 64 oz -80 oz of water daily for most, some of you will need more and we'll discuss it at your visit if that is the case. When changing our diet and reducing our intake, we can often mistake thirst for hunger or just have some grazing habits we have to break ('bored/mindless eating') and a glass of water and reconsideration of our hunger is often all that is needed. Having the urge is not the problem, but watching it pass by without acting on it is the goal. If you???re having hunger problems, add a protein drink/snack to your morning hours or afternoon snack with at least 20grams of protein and not too much sugar (under 10g). A carton of higher protein/low sugar yogurt can work as well. If the urge to snack is overwhelming and not satiated, try going fora 10 minute walk/exercise, come home and drink a glass of water and if still hungry, have a 90-150 calorie snack (handful of raw/sprouted nuts, veggies and string cheese, protein bar, etc). Savor it. It is better to have a large breakfast, a moderate lunch and a smaller dinner to fuel your day. People lose 10-15% more weight during their weight loss season with this strategy. Optimizing your protein intake at each meal will further keep you more satisfied while eating less food overall. Getting exercise in early has also been shown to offer the best results (before breakfast ideally but anytime is the right time to exercise if that is not an option for you). To make sure you???re getting adequate vitamins and minerals during weight loss, I recommend one complete multivitamin a day of your choice. Consider a probiotic and taking some vitamin D 2000 IU daily. Let supper be your last meal of the day and ideally try to have at least 12 hours between supper andbreakfast the next day to tap into some beneficial overnight fasting dynamics. Water in the evening is fine, unsweetened, non caffeinated herbal tea is helpful as well. Consolidating your meals within a 8- 12 hour period of your day will help tap into these additional metabolic benefits and tends to keep your appetite up for breakfast, further helping to stay on track. For most of my patients I don't recommend an intermittent fasting style diet (many find it hard to fit in their lifestyle) but an overnight fast is very doable for most patients and helps regulate our hunger drives a little better. This makes it very important to nail good intake at all three meals to feel satisfied/energized and still lose weight. If evening snacking desires are high, consider a glass of fiber supplement for some additional fullness (metamucil or similar). Most of us don't get the 25-30 grams per day of fiber thatpromotes good gut health/satiety. Benefiber, metamucil, citrucel are reasonable/affordable options for most people. Inulin, chicory, psyllium husk are reasonable options but start slow and low in the dose to avoid gas/bloating until your gut gets acclimated (ramping up to 5-10 grams per day of supplemental fiber after 3-4 weeks if needed). Example Meal Plan: Breakfast: 450-475 Calories 1 egg cooked on low in olive oil: 90-100 calories. 5oz [place] Yogurt (Fage plain classic: ~150 michael) Handful of Berries of your choice (about a calorie per pacheco or 20-40cal per handful) ?? cup(cooked) of old fashioned oatmeal or 1/2 cup(cooked) steel cut oats. (150 michael) Sprinkle amount of brown sugar and a pat of butter. (40 michael) Glass of Water Black coffee or unsweetened Tea (0calories). 2-3 hours Later Snack: (195 calories). Glass of water One string Cheese (80 calories) or 4 oz creamed cottage cheese (115 calories) with Crunchy Celery sticks (less than 10 calories per large stalk) 2 stalks. (20 calories) ?? of a Large Banana or ?? of a Large Apple (60 calories): eat second half at lunch or afternoon snack. Lunch:300 -350 calories Chicken Breast (baked/broiled/roasted/grilled) 4-6 oz. (125-180 michael), BBQ sauce/hot sauce/mustard/seasoning is free. Just use a reasonable amount. Or a can of tuna with 1 tablespoon mayonnaise. Salad: lettuce, any other veggies (cucumbers, green peppers/celery you like and a small drizzle of dressing to just flavor. Go as big on the veggies as you like, as they are practically calorie free. Awhole, 8 inch cucumber is 45 calories, a whole green pepper is 23 calories, a stalk of celery is 9 calories. [place] Dressing is 60 calories per tablespoon..so moderate your desired dressing ordo a drizzle of olive oil and splash of balsamic vinegar on top, Total calories unlikely to be over 150 even with dressing. Glass of Water. Option for lunch is meal replacement protein drink/smoothie. Need at least 20 grams of protein and eat the rest of your apple/banana from the morning snack. Afternoon Snack: 150-200 calories Cheese Stick or cottage cheese again and a fresh fruit OR Granola Bar (protein Bar acceptable if under 200 calories OR Homemade smoothies: 8oz skim milk, a handful of berries (fresh or frozen and a serving of protein powder such as BiPro or Sumi???Eulay for example. If you don't like dairy, make with 8oz water, one small banana, handful of berries and the protein powder, add any veggies you want as well: roughly 200 calories. Glass of Water Dinner: 325 calories 4oz of fresh, [place] salmon. Broiled (salt/pepper/dill) for about 8-8.5 minutes (200calories) or 4oz filet mignon steak or sirloin steak Salad or vegetable saut??ed lightly in olive oil or Broccoli 1.5 cups chopped and steamed or micro-waved in a little water (75 calories) Glass of Water, Cup of herbal tea (unsweetened, caffeine free) Herbs and seasonings are encouraged to flavor your foods/vegetables. Make your food delicious. Tips for Success: 1. Prepare proteins ahead of time (broil chicken breasts in bulk so you can grab and go), steel cut oats/lentils can be stored in casserole dish/bowl in the fridge for quick scoop in the morning and rewarm in microwave, make use of crock pot recipes (watch salt content). Making meals that cover 3-4 future meals is an easy way to stay on track. 2. Drink a 8-12 oz glass of water every 2-3 hours when awake. We often mistake hunger for thirst, especially when losing weight. 3. Remember your Reward and Motivation when things get hard. 4. Weigh yourself every morning and record, you'll stay on track better and learn how our biorhythms, diet and elimination patterns show up on the scale. Don't worry about 1 or 2 day patterns, but whenon track you'll notice good trend downward of weight over 3-4 day segments. Plateaus tend to resolveafter 4-8 days in most cases if you stay consistent with your plan. These are natural and part of weight loss, even if you're perfect with your plan execution. 5. Call if problems/concerns. [employer] is a great tool to stay in touch and provide weekly outside accountability. Check in with questions or if you want to brag. 6. Find a handful of meals/foods that keep you on track and feeling good and get into a routine thatis sustainable for you. It's OK to have a routine that works for you. 7. Consider taking a complete multivitamin just to make sure all micronutrients are adequate during weight loss. 8. If losing hair/brittle nails it usually means you are not taking enough protein. Minimum goal is 60 grams daily of protein for smaller women, 80 grams a day for men. Consider taking Biotin as supplement or a Hair and Nail multivitamin. documented in this encounter Plan of Treatment Upcoming Encounters Date Type Specialty Care Team Description 11/15/2022 Virtual Visit Pharm Haylie Gonzalez, [facility] [address] [facility] [place] [id number] (Wo rk) 11/15/2022 Virtual Visit IM/Peds Yane Barraza MD [address] [place] [address] [place] [phone] (Wo rk) 03/03/2023 Virtual Visit Neurology Erlinda Barber MD [address] [place] [address] 295 [place] [address] (Wo rk) documented as of this encounter Visit Diagnoses Diagnosis Obesity, morbid, BMI 50 or higher (H) Hypoalbuminemia Other disorders of plasma protein metabo lism documented in this encounter Additional Health Concerns Assessment Noted Time PHQ-9 Depression Total Score: 4 04/12/2019 7:03 AM CDT documented as of this encounter Care Teams E Commerce Marketing Analyst Relationship Specialty Start Date End Date Jaiden Holcomb PCP - General Internal Medicine 02/13/2010/03 MD Jayesh [address] [place] [address] [place] [id number] Chastity Montero MD Dermatology 09/23/[address] [place] [address] 98 [place] [address] Johnnie Alcocer MD Surgeon General Surgery 03/23/[address] [place] [address] Danni Marcus, CHANDLER Personal Advocate & 01/09/1901/17 Liaison (PAL) Fernando, Ea Complex 04/23/19 Svetlana Osman, Pharmacist Pharmacotherapy 04/23/19 [facility] [address] [place] [address] Haylie Cheung, Pharmacist Pharmacist 09/11/19 [facility] [address] [place] [address] Opal, Assigned Sleep 05/08/20 03/27/21 Kendall Meehan MD Provider [address] [facility] [address] [place] [address] Erlinda Barber MD Assigned Neuroscience 05/08/20 01/26/[address] [facility] 295 [place] [address] Jaiden Holcomb Assigned PCP 05/24/20 MD Jayesh 909 [place] [address] documented as of this encounter
--- OUTSIDE RECORDS SUMMARY | 2022-06-15 12:46 | XMS_ITS | Encounter Summary ---
:1945 Author Organization [place] Address [address] [place] [address] Care Team Providers Name Role Phone Chastity Montero MD Unavailable [phone] Johnnie Alcocer MD Unavailable Danni Marcus RN Unavailable Unavailable Mtm, Ea Complex Unavailable Unavailable Svetlana Osman [facility] Unavailable [phone] Haylie Cheung [facility] Unavailable [phone] Jaiden Holcomb MD Primary Care Provider [phone] Kendall Joseph MD Unavailable Erlinda Barber MD Unavailable Jaiden Holcomb MD Unavailable [phone] Encounter Details Date Type Department Care Team Description 12/04/2020 Travel Social History Tobacco Use Types Packs/Day [...] Visit Pharm Haylie Gonzalez, [facility] [address] [facility] [place] [id number] (Wo rk) 11/15/2022 Virtual Visit IM/Yane Mathias MD [address] [place] [address] [place] [phone] (Wo rk) 03/03/2023 Virtual Visit Neurology Erlinda Barber MD [address] [place] [address] 295 [place], [place] [address] (Wo rk) documented as of this encounter Visit Diagnoses Not on filedocumented in this encounter Additional Health Concerns Assessment Noted Time PHQ-9 Depression Total Score: 4 04/12/2019 7:03 AM CDT documented as of this encounter Care Teams Red Hat Linux Administrator Relationship Specialty Start Date End Date Jaiden Holcomb PCP - General Internal Medicine 02/13/2010/03 MD Jayesh [address] [place] [address] [place] [id number] Chastity Montero MD Dermatology 09/23/[address] [place] [address] 98 [place], [place] [address] Johnnie Alcocer MD Surgeon General Surgery 03/23/[address] [place], [place] [id number] Danni Marcus, RN Personal Advocate & 01/09/1901/17 Liaison (PAL) [place], Ea Complex 04/23/19 Svetlana Osman, Pharmacist Pharmacotherapy 04/23/19 [facility] [address] [place], [place] [phone] Haylie Cheung, Pharmacist Pharmacist 09/11/19 [place] [address] [place] [address] Opal, Assigned Sleep 05/08/20 03/27/21 Kendall Meehan MD Provider [address] [place] [address] [place] [address] Erlinda Barber MD Assigned Neuroscience 05/08/20 01/26/21 [address] [facility] 295 [place] [address] Jaiden Holcomb Assigned PCP 05/24/20 MD Jayesh 909 [place] [address] documented as of this encounter
--- OUTSIDE RECORDS SUMMARY | 2022-06-15 12:46 | XMS_ITS | Encounter Summary ---
:1945 Author Organization [facility] Address [address] [place] [address] Care Team Providers Name Role Phone Chastity Montero MD Unavailable [phone] Johnnie Alcocer MD Unavailable Danni Marcus RN Unavailable Unavailable Mtm, Ea Complex Unavailable Unavailable Svetlana Osman [facility] Unavailable [phone] Haylie Cheung [facility] Unavailable [phone] Jaiden Holcomb MD Primary Care Provider [phone] Kendall Joseph MD Unavailable Erlinda Barber MD Unavailable Jaiden Holcomb MD Unavailable [phone] Ruth John MD Unavailable Kajal Huggins MD Unavailable Patience Toussaint NP Unavailable Encounter Details Date Type Department Care Team Description 10/26/2020 Records - [facility] CONVERSION Scan, Non-Provider Social History Tobacco Use Types Packs/Day Years [...] Visit Pharm D Haylie Cheung, [facility] [address] [facility] [place] [id number] (Lena max) 11/15/2022 Virtual [place] [address] [place] [address] [place] [id number] (Lena max) 03/03/2023 Virtual Visit Neurology Erlinda Barber MD [address] [facility] [address] [place] [address] (Wo winter) documented as of this encounter Visit Diagnoses Not on filedocumented in this encounter Additional Health Concerns Assessment Noted Time PHQ-9 Depression Total Score: 4 04/12/2019 7:03 AM CDT documented as of this encounter Care Teams Adhesive Bandage Machine Operator Relationship Specialty Start Date End Date Jaiden Holcomb PCP - General Internal Medicine 02/13/2010/03 MD Jayesh [address] [place] [address] [place] [id number] Chastity Montero MD Dermatology 09/23/14 [address] [facility] [address] [place], [place] [address] Johnnie Alcocer MD Surgeon General Surgery 03/23/[address] [place], [place] [address] Danni Marcus, CHANDLER Personal Advocate & 01/09/1901/17 Liaison (PAL) Fernando, Ea Complex 04/23/19 Svetlana Osman, Pharmacist Pharmacotherapy 04/23/19 [facility] [address] [place], [place] [id number] Haylie Cheung, Pharmacist Pharmacist 09/11/19 [facility] [address] [facility] [address] [place], [place] [phone] Opal, Assigned Sleep 05/08/20 03/27/21 Kendall Meehan MD Provider [address] [facility] [address] [place], [place] [address] Erlinda Barber MD Assigned Neuroscience 05/08/20 01/26/21 [address] [facility] [address] Provider [place], [place] [address] Jaiden Holcomb Assigned PCP 05/24/20 MD Jayesh 909 [place], [place] [address] Ruth John MD Assigned Infectious 01/29/21 07/03/21 [facility] INFECTIOUS Disease Provider [facility] [address] [facility] [address] [place], [place] [id number] Kajal Huggins MD Assigned Neuroscience 01/29/21 10/23/[address] [place] [address] [address] [place] [address] Patience Toussaint NP Assigned Surgical 01/29/21 02/11/[address] [place] [address] Provider [address] [place] [address] documented as of this encounter
--- OUTSIDE RECORDS SUMMARY | 2022-06-15 12:46 | XMS_ITS | Encounter Summary ---
:1945 Author Organization [place] Address [address] [place] [address] Care Team Providers Name Role Phone Chastity Montero MD Unavailable Johnnie Alcocer MD Unavailable Danni Marcus RN Unavailable Unavailable Mtm, Ea Complex Unavailable Unavailable Svetlana Osman [facility] Unavailable [phone] Haylie Cheung [facility] Unavailable [phone] Jaiden Holcomb MD Primary Care Provider [phone] Kendall Joseph MD Unavailable Erlinda Barber MD Unavailable Jaiden Holcomb MD Unavailable Encounter Details Date Type Department Care Team Description 12/09/2020 Records - [facility] CONOR CONVERSION Provider, Histor ical Social [...] or relatives? How often do you attend latter day or More than 4 times per year 05/03/2021 amish services? Do you belong to any clubs or No 05/03/2021 organizations such as latter day groups, unions, fraternal or athletic groups, or [...] Visit Pharm D Haylie Cheung, [facility] [address] [place] [phone] (Wo rk) 11/15/2022 Virtual Visit IM/Peds Yane Barraza MD [address] [facility] [place] [id number] (Wo rk) 03/03/2023 Virtual Visit Neurology Erlinda Barber MD [address] [facility] [address] [place], [place] [id number] (Wo rk) documented as of this encounter Procedures Procedure Name Priority Date/Time Associated Comments Diagnosis US MISC(FCIS) US Routine 11/20/2001 12:00 Results for this ORDER AM CDT procedure are i n the results section. NM LUNG SCAN Routine 11/20/2001 12:00 Results for this VENTILATION AND AM CDT procedure ar e in PERFUSION the results section. NM LUNG SCAN Routine 11/20/2001 12:00 Results for this PERFUSION PARTICULATE AM CDT proced ure are in the results section. XR CHEST 2 VIEWS Routine 11/20/2001 12:00 Results for this AM CDT procedure are i n the results section. documented in this encounter Results NM Lung Scan Ventilation and Perfusion (11/20/2001 12:00 AM CDT) Anatomical Region Laterality Modality Chest Other Specimen (Source) Anatomical Location Collection Method / Collectio n Time Received Time / Laterality Volume Narrative 11/20/2001 12:00 AM CDT See Historical Hospital Medical Record f or documentation Procedure Note Provider, Historical - 12/09/2020Formatt ing of this note might be different from the original. See Historical Hospital Medical Record f or documentation Historical Provider IMG NM ORDERABLES US Miscellaneous US Order (11/20/2001 12:00 AM CDT) Anatomical Region Laterality Modality Other Specimen (Source) Anatomical Location Collection Method / Collectio n Time Received Time / Laterality Volume Narrative 11/20/2001 12:00 AM CDT See Historical Hospital Medical Record f or documentation Procedure Note Provider, Historical - 12/09/2020Formatt ing of this note might be different from the original. See Historical Hospital Medical Record f or documentation Historical Provider IMG US ORDERABLES NM Lung Scan Perfusion Particulate (11/20/2001 12:00 AM CDT) Anatomical Region Laterality Modality Chest Other Specimen (Source) Anatomical Location Collection Method / Collectio n Time Received Time / Laterality Volume Narrative 11/20/2001 12:00 AM CDT See Historical Hospital Medical Record f or documentation Procedure Note Provider, Historical - 12/09/2020Formatt ing of this note might be different from the original. See Historical Hospital Medical Record f or documentation Historical Provider IMG NM ORDERABLES XR Chest 2 Views (11/20/2001 12:00 AM CDT) Anatomical Region Laterality Modality Chest Digital Radiography Specimen (Source) Anatomical Location Collection Method / Collectio n Time Received Time / Laterality Volume Narrative 11/20/2001 12:00 AM CDT See Historical Hospital Medical Record f or documentation Procedure Note Provider, Historical - 12/09/2020Formatt ing of this note might be different from the original. See Historical Hospital Medical Record f or documentation Historical Provider IMG DIAGNOSTIC IMAGING ORDER CONY documented in this encounter Visit Diagnoses Not on filedocumented in this encounter Additional Health Concerns Assessment Noted Time PHQ-9 Depression Total Score: 4 04/12/2019 7:03 AM CDT documented as of this encounter Care Teams Photogrammetry Airplane Pilot Relationship Specialty Start Date End Date Jaiden Holcobm PCP - General Internal Medicine 02/13/2010/03 MD Jayesh [address] [place] [address] Chastity Montero MD Dermatology 09/23/14 [place] [address] [facility] [address] [place], [place] [address] Johnnie Alcocer MD Surgeon General Surgery 03/23/[address] [place], [place] [phone] Danni Marcus, CHANDLER Personal Advocate & 01/09/1901/17 Liaison (PAL) Fernando Ea Complex 04/23/19 Svetlana Osman, Pharmacist Pharmacotherapy 04/23/19 [facility] [address] [place] [address] Haylie Cheung, Pharmacist Pharmacist 09/11/19 [place] [id number] [place], [place] [phone] Opal, Assigned Sleep 05/08/20 03/27/21 Kendall Meehan MD Provider [address] [place], [place] [address] Erlinda Barber MD Assigned Neuroscience 05/08/20 01/26/21 [address] [facility] [address] Provider [place], [place] [phone] Jaiden Holcomb Assigned PCP 05/24/20 MD Jayesh [address] [place] [address] documented as of this encounter
--- OUTSIDE RECORDS SUMMARY | 2022-06-15 12:46 | XMS_ITS | Encounter Summary ---
:[address] Address [address] [place] [address] Care Team Providers Name Role Phone Chastity Montero MD Unavailable [phone] Johnnie Alcocer MD Unavailable Danni Marcus RN Unavailable Unavailable Mtm, Ea Complex Unavailable Unavailable Svetlana Osman [facility] Unavailable [phone] Haylie Cheung [facility] Unavailable [phone] Jaiden Holcomb MD Primary Care Provider [phone] Kendall Joseph MD Unavailable Erlinda Barber MD Unavailable Jaiden Holcomb MD Unavailable [phone] Encounter Details Date Type Department Care Team Description 12/09/2020 Records - [facility] CONOR CONVERSION Provider, Histor ical Social [...] Description 11/15/2022 [facility] [address] [place] [phone] (Wo rk) 11/15/2022 Virtual Visit IM/Peds Yane Barraza MD [address] [facility] [place] [phone] (Wo rk) 03/03/2023 Virtual Visit Neurology Erlinda Barber MD [address] [facility] [address] [place], [place] [phone] (Wo rk) documented as of this encounter Procedures Procedure Name Priority Date/Time Associated Comments Diagnosis NM LUNG SCAN Routine 01/24/2002 12:00 Results for this VENTILATION AND AM CDT procedure ar e in PERFUSION the results section. XR CHEST PORT 1 VIEW Routine 01/24/2002 12:00 Res ults for this AM CDT procedure are i n the results section. NM LUNG SCAN Routine 01/24/2002 12:00 Results for this PERFUSION PARTICULATE AM CDT proced ure are in the results section. documented in this encounter Results NM Lung Scan Perfusion Particulate (01/24/2002 12:00 AM CDT) Anatomical Region Laterality Modality Chest Other Specimen (Source) Anatomical Location Collection Method / Collectio n Time Received Time / Laterality Volume Narrative 01/24/2002 12:00 AM CDT See Historical Hospital Medical Record f or documentation Procedure Note Provider, Historical - 12/09/2020Formatt ing of this note might be different from the original. See Historical Hospital Medical Record f or documentation Historical Provider IMG NM ORDERABLES XR Chest Port 1 View (01/24/2002 12:00 AM CDT) Anatomical Region Laterality Modality Chest Digital Radiography Specimen (Source) Anatomical Location Collection Method / Collectio n Time Received Time / Laterality Volume Narrative 01/24/2002 12:00 AM CDT See Historical Hospital Medical Record f or documentation Procedure Note Provider, Historical - 12/09/2020Formatt ing of this note might be different from the original. See Historical Hospital Medical Record f or documentation Historical Provider IMG DIAGNOSTIC IMAGING ORDER CONY NM Lung Scan Ventilation and Perfusion (01/24/2002 12:00 AM CDT) Anatomical Region Laterality Modality Chest Other Specimen (Source) Anatomical Location Collection Method / Collectio n Time Received Time / Laterality Volume Narrative 01/24/2002 12:00 AM CDT See Historical Hospital Medical [...] documented as of this encounter Care Teams Atomic Spectroscopist Relationship Specialty Start Date End Date Jaiden Holcomb PCP - General Internal Medicine 02/13/2010/03 MD Jayesh [address] [place] [phone] Chastity Montero MD Dermatology 09/23/14 [facility] [address] [place], [place] [phone] Johnnie Alcocer MD Surgeon General Surgery 03/23/17 [address] [place], [place] [address] Danni Marcus, RN Personal Advocate & 01/09/1901/17 Liaison (PAL) Fernando, Ea Complex 04/23/19 Svetlana Osman, Pharmacist Pharmacotherapy 04/23/19 [facility] [address] [place] [address] Haylie Cheung, Pharmacist Pharmacist 09/11/19 [facility] [address] [place], [place] [phone] Opal, Assigned Sleep 05/08/20 03/27/21 Kendall Meehan MD Provider [address] [place] [address] Erlinda Barber MD Assigned Neuroscience 05/08/20 01/26/21 [address] [facility] 295 [place] [address] Jaiden Holcomb Assigned PCP 05/24/20 MD Jayesh [address] [place] [address] documented as of this encounter
--- OUTSIDE RECORDS SUMMARY | 2022-06-15 12:46 | XMS_ITS | Encounter Summary ---
:1945 Author Organization [place] Address [address] [place] [address] Care Team Providers Name Role Phone Chastity Montero MD Unavailable [phone] Johnnie Alcocer MD Unavailable Danni Marcus RN Unavailable Unavailable Mtm, Ea Complex Unavailable Unavailable Svetlana Osman [facility] Unavailable [phone] [facility] Unavailable [phone] Jaiden Holcomb MD Primary Care Provider [phone] Kendall Joseph MD Unavailable Erlinda Barber MD Unavailable Jaiden Holcomb MD Unavailable Reason for Visit Reason Comments Appointment Encounter Details Date Type Department Care Team Description 11/10/2020 Documentation Only [facility] Jaiden Holcomb Appointment Clinic Yarelis Mcconnell MD [address] [place] [address] [address] [address] [place] [address] [phone] Social History Tobacco Use Types Packs/Day Years [...] documented as of this encounter Progress Notes Gisele Reed - 11/10/2020 11:38 AM CDT Called spoke to patient Scheduled future appointment on 12/04/20 to come into the clinic in person starting at 8:30am. Patient was recently scheduled for INR at 10:10am. She will go down to lab afterwards. FYI - She also mentioned to me that she is going to a [facility] tomorrow 11/11/20. This is located in [place]. She will call or mychart us with an update. Thank you Luis E Carreon Manifold Builder - Complex Care Team Jaiden Holcomb MD - 11/10/2020 11:38 AM CDT Thanks for update. I'll add to labs TSH, ferritin and Hb which she may obtain when having an INR lab. Jaiden Holcomb MD Internal Medicine [facility] [place] documented in this encounter Plan of Treatment Upcoming Encounters Date Type Specialty Care Team Description 11/15/2022 Virtual Visit Pharm Haylie Gonzalez, [facility] [address] [place] [address] (Wo rk) 11/15/2022 Virtual Visit [place] [address] [place] [address] [place] [phone] (Wo rk) 03/03/2023 Virtual Visit Neurology Erlinda Barber MD [address] [place] [address] 295 [place], [place] [address] (Wo rk) documented as of this encounter Visit Diagnoses Not on filedocumented in this encounter Additional Health Concerns Assessment Noted Time PHQ-9 Depression Total Score: 4 04/12/2019 7:03 AM CDT documented as of this encounter Care Teams Recreation Technician Relationship Specialty Start Date End Date Jaiden Holcomb PCP - General Internal Medicine 02/13/2010/03 MD Jayesh [address] [place] [address] [place] [address] Chastity Montero MD Dermatology 09/23/[address] [place], [place] [address] Johnnie Alcocer MD Surgeon General Surgery 03/23/[address] [place], [place] [address] Danni Marcus, CHANDLER Personal Advocate & 01/09/1901/17 Liaison (PAL) Kyle King Complex 04/23/19 Svetlana Osman, Pharmacist Pharmacotherapy 04/23/[address] [facility] [address] [place] [address] Haylie Cheung, Pharmacist Pharmacist 09/11/[address] [facility] [address] [place], [place] [phone] Opal, Assigned Sleep 05/08/20 03/27/21 Kendall Meehan MD Provider [address] [place], [place] [phone] Erlinda Barber MD Assigned Neuroscience 05/08/20 01/26/21 [address] [facility] [address] [place] [address] Jaiden Holcomb Assigned PCP 05/24/20 MD Jayesh [address] [place] [address] documented as of this encounter
--- OUTSIDE RECORDS SUMMARY | 2022-06-15 12:46 | XMS_ITS | Encounter Summary ---
:1945 Author Organization [facility] Address [address] [place] [address] Care Team Providers Name Role Phone Chastity Montero MD Unavailable [phone] Johnine Alcocer MD Unavailable Danni Marcus RN Unavailable Unavailable Mtm, Ea Complex Unavailable Unavailable Svetlana Osman [facility] Unavailable [phone] Haylie Cheung [facility] Unavailable [phone] Jaiden Holcomb MD Primary Care Provider [phone] Kendall Joseph MD Unavailable Erlinda Barber MD Unavailable Jaiden Holcomb MD Unavailable [phone] Reason for Referral Consultation (Routine) - Closed Specialty Diagnoses / Procedures Referred By Contact Refer red To Contact Allergy & Immunology Diagnoses Allergic reaction, initial encounter Jaiden Holcomb [facility] MD Jayesh OF [place]-[facility]'[place] [address] [facility] [address] [address] SARAH [address] [place] [address] [place] [address] Referral ID Status Reason Start Date Expiration Date Visits Requ ested Visits Authorized [id number] Closed 12/04/2020 12/04/2021 1 1 Reason for Visit Reason Comments Wounds Musculoskeletal Problem thoracic back pain Seizures MOOD CHANGES Encounter Details Date Type Department Care Team Description 12/04/2020 Office Visit [facility] Luis Holcomb MD [address] [place] [address] Chronic midline thoracic back pain (Prim joe Dx); Clinic [facility] [address], Ea Rn Pal Seizure (H); [address] Pressure i njury of left buttock, stage 4 (H); [address] CEFERINO on CPAP; [address] Paroxysmal atrial fibrillati on (H); [place] [address] Prediabetes; [phone] Morbid obesity -- BMI 55.6; Iron deficiency anemia, unspecified iron deficiency anemia type; 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; Encounter for s creening mammogram for breast cancer; Vitamin D defic iency, unspecified ; Allergic reacti on, initial encounter; Constipation, u nspecified constipation type; Vitamin D defic iency; Weakness of bot h lower extremities Social History Tobacco Use Types Packs/Day Years [...] Sign Reading Time Taken Comments Blood Pressure 116/80 12/04/2020 8:36 AM CDT Pulse 61 12/04/2020 8:36 AM CDT Temperature 36.9 ??C (98.5 ??F) 12/04/2020 8:36 AM CDT Respiratory Rate - - Oxygen Saturation 95% 12/04/2020 8:36 AM CDT Inhaled Oxygen Concentration - - Weight 161.5 kg (356 lb) 12/04/2020 8:36 AM CDT Height - - Body Mass Index 55.76 11/04/2020 11:00 AM CDT documented in this encounter Patient Instructions Patient InstructionsJolanta Reddy RN - 12/04/2020 8:30 AM CDT Recommendations from today's Complex Care Team visit: Thank you for participating in our complex care team visit today! 1. Brace was supplied by [employer] phone number is [phone]. Please call to discuss leg brace, may need to replace. 2. Labs today: Vitamin D, thyroid, ferritin, hemoglobin, INR. 3. Completed disability parking certificate. 4. CPAP supply order faxed to [facility] in [place]. Please call them regarding when to picker tender helper the supplies: [phone]. 5. May use Desitin Daily Defense to use daily for barrier cream to redness (should not have lanolin in the ingredience). https://www.desitin.com/smnths-lsfj-aokuxfrr/ayfis-eqckdoq-uach-oxide-cream?upce [email or web address]#inactive-ingredients 6. Recommend continued stool softner Monday, Monday, Monday. 7. Call [facility] for appointment about question toward Shingles vaccine reaction potential. Next care team visit: Follow up again in 4 months. Luis E will help with mammogram set up. Please feel free to contact us with any questions or concerns you have. You may reach the complex care team directly at [phone]. Please feel free to leave a voicemail if we are not available and we will return your call as soon as possible. My Care Team Members MD Danni Bradley RN PAL documented in this encounter Progress Notes Jaiden Holcomb MD - 12/04/2020 8:30 AM CDT Assessment/Plan Problem List Items Addressed This Visit Nervous and Auditory Seizure (H) Reports no seizure activity since beginning Keppra. Continues on Keppra 500 mg twice daily. Follows with Neurology, Dr Barber. Filled out license plate disability form this visit, okay to drive. Chronic midline thoracic back pain - Primary Continued on tylenol prn. Respiratory CEFERINO on CPAP Orders for CPAP supplies placed as patient has not have tubes replaced in about 1 year. Really should be replaced about every 3 months. Will fax to [facility]. Relevant Orders CPAP/Comprehensive Sleep Order (Completed) Digestive Morbid obesity -- BMI 55.6 Continuing to work with weight management. Constipation, unspecified constipation type Continued on dulcolax OTC daily. Recommend patient continue on her stool softener at least Monday,Monday,Monday regular and prn. Relevant Medications bisacodyl (DULCOLAX) 5 MG EC tablet docusate sodium (COLACE) 100 MG capsule Vitamin D deficiency Recheck vitamin D level Continued on vitamin D 5000 units daily. Circulatory Paroxysmal atrial fibrillation (H) Recheck TSH. Continued on atenolol 25mg BID and warfarin Musculoskeletal and Integumentary Pressure injury of left buttock, stage 4 (H) Has established care with [facility]. Started with recent wound vac 2 days ago. Wound measurements from 11/11- 3.3 cm in Length 4.6 cm wide 3.5 cm deep 11.92 cm area of wound 41.728 cm volume No tunneling or undermining noted. Small pink granulation. Medium amount of necrotic tissue in wound bed. Recommend Desitin Daily Defense to use daily for barrier cream to redness as patient has allergies to Lanolin. Relevant Orders Vitamin D Deficiency (Completed) Lower extremity weakness Patient with left leg brace, mentions foot slips forward. Had strap over her foot in the past but was causing foot numbness. Has led to left great toenail coming off. Advise patient call [facility] for reevaluation. Immune Allergic reaction, initial encounter Patient preferred to talk with [facility] about risk with Shingrix vaccine. She mentions a bad reaction when she had the Zostavax vaccine in the past. Referral placed for [facility] for patient to call and schedule. Relevant Orders ALLERGY/ASTHMA ADULT REFERRAL Hematologic Iron deficiency anemia, unspecified iron deficiency anemia type Recheck ferritin and Hb Continued on ferrous sulfate 325mg every other day for now. 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 Mammogram ordered to schedule. No results found for any visits on 12/04/20. Health Maintenance Due Topic Date Due ??? ZOSTER IMMUNIZATION (1 of 2) Never done ??? ANNUAL REVIEW OF HM ORDERS 12/27/2019 ??? MAMMO SCREENING 12/27/2019 ??? MEDICARE ANNUAL WELLNESS VISIT 01/10/2020 ??? MICROALBUMIN 02/08/2020 ??? PHQ-2 07/17/2020 ??? FALL RISK ASSESSMENT 07/22/2020 Time in: 8:40am Time out: 9:40am Subjective Would like parking certificate completed at appointment. She will bring old form to visit with her. Patient is concerned about brace on left foot. She states that it doesn't hold her foot in the shoe very well, and foot is sliding forward which interferes with circulation, and then the bottom of her foot is tingling. Her great toe slides over the front of the brace and this irritates the toe-lost toenail awhile ago. This is concerning for her when she is ambulating. Has led to her great toenail coming off. Patient did share picture of great toe with just nailbed. Brace was supplied by [employer] phone number is [phone]. (02/14/20) Has got a wound vac placed again on Monday afternoon. Is now established with [facility]. She has an appointment with them today at 11am. Has been going to the wound clinic once weekly on Mon for four weeks. Had visit with Dr. Lala on 10/26-Albumin level was 3.3. [facility] may [facility], as she is being seen at [facility] Aide services are thru [facility]. They come daily and assist with Lymphedema pumps. Home care nurse is thru [facility]-they come to her home when she needs something done with wound. No seizure activity-continues on Keppra 500 mg twice daily. States she has had a lot of ups and downs due to medical issues and having to change companies. Discuss CPAP supplies. Sleep medicine appointment in 09/2019, and this provider ordered CPAP machine. Patient needs all supplies to go with this. Supplies are thru [facility]. I spoke with [facility] and the order for CPAP supplies has . Will need to renew orders. Mentions having hard stools. She take dulcolax every day and a stool softener once a while. Mentions she usually has BMs everyday. With hard stools, she mentions her abdominal hernia has been pushingout and hurts sometimes. Mentions that when she takes stool softener daily, stool tends to run between her legs when she goes. Patient did share by picture of redness along both buttocks. Review of Systems Constitutional: Negative for chills and fever. Respiratory: Negative for shortness of breath. Cardiovascular: Positive for peripheral edema. Negative for chest pain. Gastrointestinal: Positive for constipation. Negative for abdominal pain, diarrhea and hematochezia. Genitourinary: Negative for dysuria and hematuria. Musculoskeletal: Positive for back pain. Skin: Positive for rash and wound. History Past Medical History: Diagnosis Date ??? BENIGN HYPERTENSION 07/30/2003 ??? benign positional vertigo 09/08/2004 s/p canolith repositioning 07/21 ??? Coagulation disorder (H) Pulmonary embolism 2001 ??? GERD (gastroesophageal reflux disease) ??? Iron deficiency anemia due to chronic blood loss 04/23/2019 ??? Obese ??? CEFERINO (obstructive sleep apnea) nightly CPAP ??? Other lymphedema 11/04/2003 ??? PULM EMBOLISM/INFARCT NOS 11/20/2001 ??? Pulmonary embolism and infarction (H) 11/20/2001 Was on HRT at time PE. Has history of recurrent pe (second when subtherapeutic on coumadin about 2 months after first); however patient states hospital physician during that hospitalization told her* ??? Rhabdomyolysis 10/19/2017 ??? Wound, open coccyx L Past Surgical History: Procedure Laterality Date ??? CATARACT IOL, RT/LT Bilateral 2018 [facility] ??? CHOLECYSTECTOMY, OPEN 1970 ??? COLONOSCOPY N/A 01/13/2015 Procedure: COLONOSCOPY; Surgeon: Jose Juan Castaneda MD; Location: [facility] OR ??? PHACOEMULSIFICATION CLEAR CORNEA WITH STANDARD INTRAOCULAR LENS IMPLANT Left 01/22/2019 Procedure: LEFT EYE CATARACT EXTRACTION WITH INTRAOCULAR LENS IMPLANTATION; Surgeon: Bernabe Crespo MD; Location: [facility] ??? PHACOEMULSIFICATION CLEAR CORNEA WITH STANDARD INTRAOCULAR LENS IMPLANT Right 02/20/2019 Procedure: RIGHT CATARACT EXTRACTION WITH INTRAOCULAR LENS IMPLANTATION; Surgeon: Bernabe Crespo MD; Location: [facility] ? ? TONSILLECTOMY & ADENOIDECTOMY Family History [...] ??? Colon Cancer No family hx of Social History Tobacco Use ??? Smoking status: Never Smoker ??? Smokeless tobacco: Never Used Substance Use Topics ??? Alcohol use: No Frequency: Never Objective Pulse 61 Temp 98.5 ??F (36.9 ??C) (Oral) Wt (!) 161.5 kg (356 lb) SpO2 95% BMI 55.76 kg/m?? Vitals taken by Danni Marcus RN Physical Exam Constitutional: General: She is not in acute distress. Appearance: She is not ill-appearing or toxic-appearing. HENT: Head: Normocephalic. Right Ear: External ear normal. Left Ear: External ear normal. Nose: Nose normal. Mouth/Throat: Mouth: Mucous membranes are dry. Eyes: Conjunctiva/sclera: Conjunctivae normal. Cardiovascular: Rate and Rhythm: Regular rhythm. Heart sounds: Normal heart sounds. No murmur. No friction rub. No gallop. Pulmonary: Effort: Pulmonary effort is normal. No respiratory distress. Breath sounds: Normal breath sounds. No wheezing, rhonchi or rales. Abdominal: General: Bowel sounds are normal. There is no distension. Palpations: Abdomen is soft. Tenderness: There is no abdominal tenderness. Hernia: A hernia is present. Comments: Small umbilical hernia present, reduceable. Musculoskeletal: Right lower leg: Edema present. Left lower leg: Edema present. Comments: Left ankle with brace present. Left leg is wrapped with LONA wrap. Skin: General: Skin is warm and dry. Neurological: Mental Status: She is alert. Comments: Left leg weakness, ambulates with limp Psychiatric: Thought Content: Thought content normal. Comments: Easily irritable I spent greater than 50% of the 60 minutes in the visit coordinating care regarding patient's recommendations towards update of chronic conditions and DME needs. Return in about 4 months (around 04/06/2021). No MTM. Patient's support system: Daughter Jaiden CarreonHarpal MD Zhang [facility] documented in this encounter Miscellaneous Notes Assessment & Plan Note - Jaiden Holcomb MD - 12/04/2020 11:09 AM CDT Associated Problem(s): Left leg weakness Patient with left leg brace, mentions foot slips forward. Had strap over her foot in the past but was causing foot numbness. Has led to left great toenail coming off. Advise patient call [facility] orthotics for reevaluation. Assessment & Plan Note - Jaiden Holcomb MD - 12/04/2020 11:07 AM CDT Associated Problem(s): Vitamin D deficiency Recheck vitamin D level Continued on vitamin D 5000 units daily. Assessment & Plan Note - Jaiden Holcomb MD - 12/04/2020 11:06 AM CDT Associated Problem(s): Iron deficiency anemia, unspecified iron deficiency anemia type Recheck ferritin and Hb Continued on ferrous sulfate 325mg every other day for now. Assessment & Plan Note - Jaiden Holcomb MD - 12/04/2020 11:05 AM CDT Associated Problem(s): Allergic reaction, initial encounter Patient preferred to talk with [facility] about risk with Shingrix vaccine. She mentions a bad reaction when she had the Zostavax vaccine in the past. Referral placed for [facility] for patient to call and schedule. Assessment & Plan Note - Jaiden Holcomb MD - 12/04/2020 11:02 AM CDT Associated Problem(s): Atrial fibrillation, unspecified type (H) Recheck TSH. Continued on atenolol 25mg BID and warfarin Assessment & Plan Note - Jaiden Holcomb MD - 12/04/2020 11:01 AM CDT Associated Problem(s): Constipation, unspecified constipation type Continued on dulcolax OTC daily. Recommend patient continue on her stool softener at least Monday,Monday,Monday regular and prn. Assessment & Plan Note - Jaiden Holcomb MD - 12/04/2020 11:00 AM CDT Associated Problem(s): Morbid obesity -- BMI 55-60 Continuing to work with weight management. Assessment & Plan Note - Jaiden Holcomb MD - 12/04/2020 11:00 AM CDT Associated Problem(s): Chronic midline thoracic back pain Continued on tylenol prn. Assessment & Plan Note - Jaiden Holcomb MD - 12/04/2020 10:58 AM CDT Associated Problem(s): CEFERINO on CPAP Orders for CPAP supplies placed as patient has not have tubes replaced in about 1 year. Really should be replaced about every 3 months. Will fax to [facility]. Assessment & Plan Note - Danni Marcus RN - 12/03/2020 2:02 PM CDTAssociated Problem(s): Seizure (H) Reports no seizure activity since beginning Keppra. Continues on Keppra 500 mg twice daily. Follows with Neurology, Dr Barber. Filled out license plate disability form this visit, okay to drive. Assessment & Plan Note - Danni Marcus RN - 12/03/2020 10:22 AM CDTAssociated Problem(s): Pressure injury of left buttock, stage 4 (H) (Resolved 10/09/2021) Has established care with [facility]. Started with recent wound vac 2 days ago. Wound measurements from 11/11- 3.3 cm in Length 4.6 cm wide 3.5 cm deep 11.92 cm area of wound 41.728 cm volume No tunneling or undermining noted. Small pink granulation. Medium amount of necrotic tissue in wound bed. Recommend Desitin Daily Defense to use daily for barrier cream to redness as patient has allergies to Lanolin. documented in this encounter Plan of Treatment Upcoming Encounters Date Type Specialty Care Team Description 11/15/2022 Virtual Visit Pharm D Haylie Cheung, [facility] [address] [place] [address] (Wo rk) 11/15/2022 Virtual Visit IM/Peds Yane Barraza MD [address] [place] [address] (Wo rk) 03/03/2023 Virtual Visit Neurology Erlinda Barber MD [address] [facility] [address] [place] [address] (Wo rk) Scheduled Referrals Name Type Priority Associated Diagnoses Order S chedule ALLERGY/ASTHMA ADULT Referral Routine Allergic reaction, E xpected: 12/04/2020 REFERRAL initial encounter (Approxima te), Expires: 2021 documented as of this encounter Procedures Procedure Name Priority Date/Time Associated Diagnosis Comme nts VITAMIN D Routine 12/04/2020 9:45 AM Vitamin D deficiency, Results for this DEFICIENCY CDT unspecified procedure are in SCREENING Pressure injury of the resul ts left buttock, stage 4 sectio n. (H) TSH WITH FREE T4 Routine 12/04/2020 9:45 AM Paroxysmal atrial Results for this REFLEX CDT fibrillation (H) procedure are in Prediabetes the results Morbid obesity -- BMI sectio n. 55.6 INR Routine 12/04/2020 9:45 AM Paroxysmal atrial Resu lts for this CDT fibrillation (H) procedure are in Hx Recurrent PE/DVT the resu lts -- on Warfarin section. HEMOGLOBIN Routine 12/04/2020 9:45 AM Iron deficiency Result s for this CDT anemia, unspecified procedur e are in iron deficiency the results anemia type section. FERRITIN Routine 12/04/2020 9:45 AM Iron deficiency Result s for this CDT anemia, unspecified procedur e are in iron deficiency the results anemia type section. documented in this encounter Results (ABNORMAL) INR (12/04/2020 9:45 AM CDT) athologist Signature INR 2.09 (H) 0.86 - 12/04/2020 [facility] 1.14 12:46 PM CDT [facility] Specimen Anatomical Collection Method Collection Time Receive d Time (Source) Location / / Volume Laterality Blood specimen 12/04/2020 9:45 AM 021 9:46 (specimen) CDT AM CDT Galdino Valdez MD LAB - BLOOD ORDERABLES Performing Organization Address City/State/ZIP Code Phon e Number [facility] [address] [place] [address] Hemoglobin FUTURE anytime (12/04/2020 9:45 AM CDT) athologist Signature Hemoglobin 14.9 11.7 - 15.7 12/04/2020 [facility] g/dL 10:07 AM CDT [facility] Specimen Anatomical Collection Method Collection Time Receive d Time (Source) Location / / Volume Laterality Blood 12/04/2020 9:45 AM 9:46 CDT AM CDT Jaiden Holcomb MD LAB - BLOOD ORDERABLES Performing Organization Address City/[facility]/ZIP Code Phon e Number [facility] [address] [place] [address] Ferritin (12/04/2020 9:45 AM CDT) athologist Signature Ferritin 104 8 - 252 12/04/2020 [facility] ng/mL 3:08 PM T [facility] Specimen Anatomical Collection Method Collection Time Receive d Time (Source) Location / / Volume Laterality Blood 12/04/2020 9:45 AM 9:46 CDT AM CDT Jaiden Holcomb MD LAB - BLOOD ORDERABLES Performing Organization Address City/State/ZIP Code Phon e Number [facility] [address] [place] [address] [facility] TSH with free T4 reflex (12/04/2020 9:45 AM CDT) athologist Signature TSH 1.07 0.40 - 4.00 12/04/2020 [facility] mU/L 3:13 PM CDT [facility] Specimen Anatomical Collection Method Collection Time Receive d Time (Source) Location / / Volume Laterality Blood 12/04/2020 9:45 AM 9:46 CDT AM CDT Jaiden Holcomb MD LAB - BLOOD ORDERABLES Performing Organization Address City/State/ZIP Code Phon e Number [facility] [address] Vitamin D Deficiency (12/04/2020 9:45 AM CDT) athologist Signature Vitamin D 58 20 - 75 12/04/2020 [facility] ug/L 5:29 PM CDT [facility] Comment: Season, race, dietary intake, and treatm ent affect the concentration of 12-jsbscky-Fxuauak D. Values may decreas e during winter months and increase during summer months. Values 20-29 ug/L may indicate Vitamin D insufficiency and values <20 ug/L may indicate Vitamin D deficiency. Vitamin D determination is routinely per formed by an immunoassay specific for 25 hydroxyvitamin D3. ??If an individual is on vitamin D2 (ergocalciferol) supplementation, please specify 25 OH vi tamin D2 and D3 level determination by LCMSMS test VITD23. Specimen Anatomical Collection Method Collection Time Receive d Time (Source) Location / / Volume Laterality Blood 12/04/2020 9:45 AM 9:46 CDT AM CDT Jaiden Holcomb MD LAB - BLOOD ORDERABLES Performing Organization Address City/State/ZIP Code Phon e Number [address] documented in this encounter Visit Diagnoses Diagnosis Chronic midline thoracic back pain - Jessica antonia Seizure (H) Other convulsions Pressure injury of left buttock, stage 4 (H) CEFERINO on CPAP Obstructive sleep apnea (adult) (pediatr ic) Paroxysmal atrial fibrillation (H) Atrial fibrillation Prediabetes Other abnormal glucose Morbid obesity -- BMI 55.6 Morbid obesity Iron deficiency anemia, unspecified iron deficiency anemia type 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 embolism Encounter for screening mammogram for br east cancer Vitamin D deficiency, unspecified Allergic reaction, initial encounter Constipation, unspecified constipation t ype Vitamin D deficiency Unspecified vitamin D deficiency Weakness of both lower extremities documented in this encounter Additional Health Concerns Assessment Noted Time PHQ-9 Depression Total Score: 4 04/12/2019 7:03 AM CDT documented as of this encounter Care Teams Student Activities Director Relationship Specialty Start Date End Date Jaiden Holcomb PCP - General Internal Medicine 02/13/2010/03 MD Jayesh [address] [place], [place] [id number] Chastity Montero MD Dermatology 09/23/14 [address] [facility] [address] [place] [address] Johnnie Alcocer MD Surgeon General Surgery 03/23/17 [address] [facility] [address] [place] [address] Danin Marcus, CHANDLER Personal Advocate & 01/09/1901/17 Liaison (PAL) Fernando, Ea Complex 04/23/19 Svetlana Osman, Pharmacist Pharmacotherapy 04/23/19 [facility] [address] [place] [address] Haylie Cheung, Pharmacist Pharmacist 09/11/19 [facility] [address] [place] [address] Opal, Assigned Sleep 05/08/20 03/27/21 Kendall Meehan MD Provider [address] [place] [address] Erlinda Barber MD Assigned Neuroscience 05/08/20 01/26/21 [address] [facility] [address] [place] [address] Jaiden Holcomb Assigned PCP 05/24/20 MD Jayesh [address] [place] [address] documented as of this encounter
--- OUTSIDE RECORDS SUMMARY | 2022-06-15 12:46 | XMS_ITS | Encounter Summary ---
:1945 Author Organization [place] Address [address] [place] [address] Care Team Providers Name Role Phone Chastity Montero MD Unavailable [phone] Johnnie Alcocer MD Unavailable Danni Marcus RN Unavailable Unavailable Mtm, Ea Complex Unavailable Unavailable Svetlana Osman [facility] Unavailable [phone] Haylie Cheung [facility] Unavailable [phone] Jaiden Holcomb MD Primary Care Provider [phone] Kendall Joseph MD Unavailable Erlinda Barber MD Unavailable Jaiden Holcomb MD Unavailable Encounter Details Date Type Department Care Team Description 01/22/2021 Anticoagulation Therapy [facility] Zhang, 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 embolism; Visit Clinic Yarelis Hwang Paroxysmal atrial fibrillati on (H); [address] MD Jayesh snf current use of anticoagulant t [facility] [place] [facility] [address] [place] [address] 200 [facility] [address] Social History Tobacco Use Types [...] or relatives? How often do you attend rastafari or More than 4 times per year 05/03/2021 adventism services? Do you belong to any clubs or No 05/03/2021 organizations such as rastafari groups, unions, fraternal or athletic groups, or [...] encounter Progress Notes Nicola Wagner RN - 01/22/2021 10:56 AM CDT ANTICOAGULATION MANAGEMENT Charlette Brush 76 year old female is on warfarin with therapeutic INR result. (Goal INR 2.0-3.0) Recent labs: (last 7 days) 01/22/21 INR 2.5* ASSESSMENT Source(s): Home Care/Facility Nurse ??? 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] 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 [Z79.01] Paroxysmal atrial fibrillation (H) [I48.0] Comments: Anticoagulation Care Providers Provider Role Specialty Phone number Galdino Valdez MD Referring Family Medicine [phone] Lucero Stevenson MD Responsible Internal Medicine [phone] documented in this encounter Plan of Treatment Upcoming Encounters Date Type Specialty Care Team Description 11/15/2022 Virtual Visit Pharm D Haylie Cheung, [facility] [address] [facility] [place] [address] (Lena max) 11/15/2022 Virtual Visit [place] [address] [place] [address] [place] [address] (Lena max) 03/03/2023 Virtual Visit Neurology Erlinda Barber MD 420 [facility] 295 [place] [address] (Lena max) documented as of this encounter Procedures Procedure Name Priority Date/Time Associated Diagnosis Comme nts INR Routine 01/22/2021 Results for thi s procedure are in the resu lts section. documented in this encounter Results (ABNORMAL) INR (01/22/2021) P athologist Signature INR 2.5 (A) 0.90 - 1.10 EXTERNAL LAB Specimen (Source) Anatomical Location Collection Method / Collectio n Time Received Time / Laterality Volume Blood 01/22/2021 Resulting Agency Comment Home care Patient Reported LAB - BLOOD ORDERABLES Performing Organization Address City/State/ZIP Code Phon e Number EXTERNAL LAB EXTERNAL LAB External Lab documented in this encounter Visit Diagnoses Diagnosis 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 embolism Paroxysmal atrial fibrillation (H) Atrial fibrillation snf current use of anticoagulant t herapy documented in this encounter Additional Health Concerns Assessment Noted Time PHQ-9 Depression Total Score: 4 04/12/2019 7:03 AM CDT documented as of this encounter Care Teams Wardrobe Specialty Worker Relationship Specialty Start Date End Date Jaiden Holcomb PCP - General Internal Medicine 02/13/2010/03 MD Jayesh [address] [facility] [place] [address] Chastity Montero MD Dermatology 09/23/14 420 [facility] 98 [place] [address] Johnnie Alcocer MD Surgeon General Surgery 03/23/[address] 300 [place], [place] [id number] Danni Marcus, CHANDLER Personal Advocate & 01/09/1901/17 Liaison (PAL) Fernando, Ea Complex 04/23/19 Svetlana Osman, Pharmacist Pharmacotherapy 04/23/19 [facility] [address] [place], [place] [id number] Haylie Cheung, Pharmacist Pharmacist 09/11/19 [facility] [address] [place], [place] [phone] Opal, Assigned Sleep 05/08/20 03/27/21 Kendall Meehan MD Provider [address] [place], [place] [address] Erlinda Barber MD Assigned Neuroscience 05/08/20 01/26/21 [address] [facility] [address] [place] [address] Jaiden Holcomb Assigned PCP 05/24/20 MD Jayesh 909 [place] [address] documented as of this encounter
--- OUTSIDE RECORDS SUMMARY | 2022-06-15 12:46 | XMS_ITS | Encounter Summary ---
:1945 Author Organization [place] Address [address] [place] [address]. [place] [address] Care Team Providers Name Role Phone Chastity Montero MD Unavailable [phone] Johnnie Alcocer MD Unavailable Danni Marcus RN Unavailable Unavailable Mtm, Ea Complex Unavailable Unavailable Svetlana Osman [facility] Unavailable [phone] Haylie Cheung [facility] Unavailable [phone] Jaiden Holcomb MD Primary Care Provider [phone] Kendall Joseph MD Unavailable Erlinda Barber MD Unavailable Jaiden Holcomb MD Unavailable [phone] Encounter Details Date Type Department Care Team Description 11/11/2020 Medical Correspondence [facility], [facility] Non-Provider AND CLINICS Srvcs TREATMENT LETTER [address] [place] [address] Social History Tobacco Use Types Packs/Day [...] 05/03/2021 organizations such as methodist groups, unions, fraTalentEarth or athletic groups, or school groups? How [...] Haylie Gonzalez, [facility] [address] [place] [address] [place] [phone] (Wo rk) 11/15/2022 Virtual Visit IM/Peds Yane Barraza MD [address] [place] [address] [place] [address] (Wo rk) 03/03/2023 Virtual Visit Neurology Erlinda Barber MD 420 [facility] 295 [place], [place] [address] (Wo rk) documented as of this encounter Visit Diagnoses Not on filedocumented in this encounter Additional Health Concerns Assessment Noted Time PHQ-9 Depression Total Score: 4 04/12/2019 7:03 AM CDT documented as of this encounter Care Teams Home Management Supervisor Relationship Specialty Start Date End Date Jaiden Holcomb PCP - General Internal Medicine 02/13/2010/03 MD Jayesh [address] [place] [address] [place] [id number] Chastity Montero MD Dermatology 09/23/14 420 [facility] 98 [place], [place] [phone] Johnnie Alcocer MD Surgeon General Surgery 03/23/[address] [place], [place] [phone] Danni Marcus, CHANDLER Personal Advocate & 01/09/1901/17 Liaison (PAL) Fernando, Ea Complex 04/23/19 Svetlana Osman, Pharmacist Pharmacotherapy 04/23/19 [facility] [address] [place] [address] Haylie Cheung, Pharmacist Pharmacist 09/11/19 [facility] [address] [place], [place] [phone] Opal, Assigned Sleep 05/08/20 03/27/21 Kendall Meehan MD Provider [address] [place], [place] [phone] Erlinda Barber MD Assigned Neuroscience 05/08/20 01/26/21 420 [facility] 295 Provider [place], [place] [phone] Jaiden Holcomb Assigned PCP 05/24/20 MD Jayesh 909 [place], [place] [phone] documented as of this encounter
--- OUTSIDE RECORDS SUMMARY | 2022-06-15 12:46 | XMS_ITS | Encounter Summary ---
:1945 Author Organization [place] Address [address] [place] [address] Care Team Providers Name Role Phone Chastity Montero MD Unavailable [phone] Johnnie Alcocer MD Unavailable Danni Marcus RN Unavailable Unavailable Mtm, Ea Complex Unavailable Unavailable Svetlana Osman [facility] Unavailable [phone] Haylie Cheung [facility] Unavailable [phone] Jaiden Holcomb MD Primary Care Provider [phone] Kendall Joseph MD Unavailable Erlinda Barber MD Unavailable Jaiden Holcomb MD Unavailable [phone] Ruth John MD Unavailable Kajal Huggins MD Unavailable Patience Toussaint NP Unavailable Brook Sánchez MD Unavailable Yane Barraza MD Primary Care Provider Osmar Kidd MD Unavailable Erlinda Barber MD Unavailable Yane Barraza MD Primary Care Provider Lenore Alcala MD Unavailable Haylie Cheung [facility] Unavailable [phone] Gaye Patrick RN Unavailable Unavailable Michela, Kenya LAINEZ PRE PRESS PROOFER Unavailable [phone] Hayley German OD Unavailable [phone] Haylie Cheung [facility] Unavailable [phone] Reason for Visit Reason Onset Date Comments Refill Request 12/20/2020 nystatin (NYSTOP) 10 0000 UNIT/GM external powder Encounter Details Date Type Department Care Team Description 12/20/2020 Refill [facility] Galdino Valdez MD Refill Request (nystatin Yarelis [address] [address] (NYSTOP) [id number] UNIT/GM 3305 [place], [place] client success manager al powder) [facility] [id number] [place] [address] 200 [place] [address] [phone] Social History Tobacco Use Types Packs/Day Years [...] Encounter - Jolanta Reddy RN - 12/21/2020 9:48 AM CDT Prescription approved per [facility] Refill Protocol. Jolanta Reddy RN Message handled by Nurse Triage. documented in this encounter Plan of Treatment Upcoming Encounters Date Type Specialty Care Team Description 11/15/2022 Virtual Visit Pharm Haylie Gonzalez, [facility] [address] [place] [address] [place] [id number] (Wo rk) 11/15/2022 Virtual Visit IM/Peds Yane Barraza MD [address] [place] [address] [place] [phone] (Wo rk) 03/03/2023 Virtual Visit Neurology Erlinda Barber MD 420 [facility] 295 [place], [place] [address] (Wo rk) documented as of this encounter Visit Diagnoses Diagnosis Dermatitis Contact dermatitis and other eczema, due to unspecified cause documented in this encounter Additional Health Concerns Assessment Noted Time PHQ-9 Depression Total Score: 4 04/12/2019 7:03 AM CDT documented as of this encounter Care Teams Organic Section Technical Lead Relationship Specialty Start Date End Date Jaiden Holcomb PCP - General Internal Medicine 02/13/2010/03 MD Jayesh [address] [place] [address] [place] [phone] Yane Barraza MD PCP - General Internal Medicine 10/04/21 12/07/[address] [place] [address] [place] [phone] Yane Barraza MD PCP - General Internal Medicine 12/08/21 [address] [facility] [address] Chastity Montero MD Dermatology 09/23/14 420 [facility] 98 [place], [place] [address] Johnnie Alcocer MD Surgeon General Surgery 03/23/17 [address] [place], [place] [address] Danni Marcus, CHANDLER Personal Advocate & 01/09/1901/17 Liaison (PAL) Fernando Ea Complex 04/23/19 Svetlana Osman, Pharmacist Pharmacotherapy 04/23/19 [facility] [address] [place] [phone] Haylie Cheung, Pharmacist Pharmacist 09/11/19 [facility] [address] [facility] [address] [place], [place] [phone] Opal, Assigned Sleep 05/08/20 03/27/21 Kendall Meehan MD Provider [address] [facility] 106 [place], [place] [address] Erlinda Barber MD Assigned Neuroscience 05/08/20 01/26/21 420 [facility] 295 Provider [place], [place] [address] Jaiden Holcomb Assigned PCP 05/24/20 MD Jayesh 909 [place] [address] Ruth John MD Assigned Infectious 01/29/21 07/03/21 [facility] Disease Provider [facility] [address] [place] [address] [address] [place], [place] [phone] Kajal Huggins MD Assigned Neuroscience 01/29/21 10/23/21 2945 [facility] SUITE Provider [address] [place], [place] [phone] Patience Toussaint NP Assigned Surgical 01/29/21 02/11/22 2945 [facility] Provider [address] [place], [place] [phone] Brook Sánchez MD Assigned Infectious 07/04/21 909 [facility] SE Disease Provider [place], [place] [address] Osmar Kidd MD Assigned Sleep 09/26/[address] Provider [place], [place] [address] Erlinda Barber MD Assigned Neuroscience 10/24/21 [address] [facility] [address] [facility] [address] Provider [place], [place] [address] Lenore Alcala MD Assigned Heart and 12/18/21 01/21/[address] Vascular Provider [address] [place] [address] Haylie Cheung, Assigned MTM 01/08/22 [facility] Pharmacist [address] [facility] [address] [place] [phone] Gaye Patrick, RN Personal Advocate & 01/18/22 Liaison (PAL) Kenya Abernathy APRN Assigned Heart and 01/22/22 PRE PRESS PROOFER Vascular Provider [address] [place] [address] Hayley German, Assigned Surgical 02/12/22 OD Provider [address]305 [facility] [place] [address] Haylie Cheung, Assigned MTM 04/13/22 [facility] Pharmacist [address] [facility] [place] [phone] documented as of this encounter
--- OUTSIDE RECORDS SUMMARY | 2022-06-15 12:46 | XMS_ITS | Encounter Summary ---
:1945 Author Organization [place] Address [address] [place] [address] Care Team Providers Name Role Phone Chastity Montero MD Unavailable [phone] Johnnie Alcocer MD Unavailable Danni Marcus RN Unavailable Unavailable Mtm, Ea Complex Unavailable Unavailable Svetlana Osman [facility] Unavailable [phone] Haylie Cheung [facility] Unavailable [phone] Jaiden Holcomb MD Primary Care Provider [phone] Kendall Joseph MD Unavailable Erlinda Barber MD Unavailable Jaiden Holcomb MD Unavailable [phone] Encounter Details Date Type Department Care Team Description 12/04/2020 Anticoagulation Therapy [facility], 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 embolism; Visit Clinic Yarelis Longo RN Paroxysmal atrial fibrillati on (H); [address] [place] retirement current use of 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 [facility] [address] [place] [address] Social History [...] 05/03/2021 organizations such as jainism groups, unions, fraZaelab or athletic groups, or school groups? How [...] documented as of this encounter Progress Notes Qing Guy RN - 12/04/2020 1:08 PM CDT ANTICOAGULATION FOLLOW-UP Patient Name: Charlette Brush Date: 12/04/2020 Contact Type: Telephone SUBJECTIVE: Patient Findings Comments: The patient was assessed for diet, medication, missed or extra doses, bruising or bleeding, with no problem findings. Reviewed previous warfarin dosing with patient. She took warfarin as instructed. Has got a wound vac placed and is now established with [facility]. Had an appointment with them today. INR is therapeutic today. Patient will continue same maintenance dose. Follow up in 6 weeks. She is having [facility] coming out to do wound cares and she is going to have them start doing her INRs also. Clinical Outcomes Comments: The patient was assessed for diet, medication, missed or extra doses, bruising or bleeding, with no problem findings. Reviewed previous warfarin dosing with patient. She took warfarin as instructed. Has got a wound vac placed and is now established with [facility]. Had an appointment with them today. INR is therapeutic today. Patient will continue same maintenance dose. Follow up in 6 weeks. She is having [facility] coming out to do wound cares and she is going to have them start doing her INRs also. 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 Anticoagulation Care Providers Provider Role Specialty Phone number Galdino Valdez MD Referring Family Medicine [phone] [facility] Responsible Internal Medicine [phone] See the Encounter Report to view Anticoagulation Flowsheet and Dosing Calendar (Go to Encounters tabin chart review, and find the Anticoagulation Therapy Visit) Qing Guy RN documented in this encounter Plan of Treatment Upcoming Encounters Date Type Specialty Care Team Description 11/15/2022 Virtual Visit Pharm Haylie Gonzalez, [facility] 1440 [facility] [place] [address] (Lena max) 11/15/2022 Virtual Visit IM/Peds Yane Barraza MD 7351 [facility] [place] [address] (Wo rk) 03/03/2023 Virtual Visit Neurology Erlinda Barber MD [address] [place] [address] [facility] 295 [place], [place] [address] (Lena rk) documented as of this encounter Visit Diagnoses Diagnosis 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 embolism Paroxysmal atrial fibrillation (H) 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 [address] [place] [phone] Chastity Montero MD Dermatology 09/23/14 420 [facility] 98 [place], [place] [address] Johnnie Alcocer MD Surgeon General Surgery 03/23/17 [address] [facility] 300 [place], [place] [address] Danni Marcus, CHANDLER Personal Advocate & 01/09/1901/17 Liaison (PAL) Fernando, Ea Complex 04/23/19 Svetlana Osman, Pharmacist Pharmacotherapy 04/23/19 [facility] [address] [place], [place] [phone] Haylie Cheung, Pharmacist Pharmacist 09/11/19 [facility] [address] [place] [phone] Opal, Assigned Sleep 05/08/20 03/27/21 Kendall Meehan MD Provider [address] [place], [place] [address] Erlinda Barber MD Assigned Neuroscience 05/08/20 01/26/21 420 [facility] 295 [place] [address] Jaiden Holcomb Assigned PCP 05/24/20 MD Jayesh 909 [place], [place] [address] documented as of this encounter
--- OUTSIDE RECORDS SUMMARY | 2022-06-15 12:46 | XMS_ITS | Encounter Summary ---
:1945 Author Organization [place] Address [address] [place] [address] Care Team Providers Name Role Phone Chastity Montero MD Unavailable [phone] Johnnie Alcocer MD Unavailable Danni Marcus RN Unavailable Unavailable Mtm, Ea Complex Unavailable Unavailable Svetlana Osman [facility] Unavailable [phone] Haylie Cheung [facility] Unavailable [phone] Jaiden Holcomb MD Primary Care Provider [phone] Kendall Joseph MD Unavailable Erlinda Barber MD Unavailable Jaiden Holcomb MD Unavailable [phone] Encounter Details Date Type Department Care Team Description 12/09/2020 Records - [facility] CONOR CONVERSION Provider, Histor ical Social [...] Visit Pharm D Haylie Cheung, [facility] [address] [facility] [address] [place] [phone] (Wo rk) 11/15/2022 Virtual Visit IM/Peds Yane Barraza MD [address] [facility] [place] [phone] (Wo rk) 03/03/2023 Virtual Visit Neurology Erlinda Braber MD [address] [facility] [facility] 295 [place], [place] [phone] (Wo rk) documented as of this encounter Procedures Procedure Name Priority Date/Time Associated Diagnosis Comme nts NM MPI SINGLE REST Routine 01/30/2002 12:00 AM Re sults for this ONLY CDT procedure are i n the results section. NM MPI SINGLE REST Routine 01/30/2002 12:00 AM Re sults for this ONLY CDT procedure are i n the results section. NM MPI SINGLE REST Routine 01/30/2002 12:00 AM Re sults for this ONLY CDT procedure are i n the results section. documented in this encounter Results NM MPI Single Rest Or Stress (01/30/2002 12:00 AM CDT) Anatomical Region Laterality Modality Chest Other Specimen (Source) Anatomical Location Collection Method / Collectio n Time Received Time / Laterality Volume Narrative 01/30/2002 12:00 AM CDT See Historical Hospital Medical Record f or documentation Procedure Note Provider, Historical - 12/09/2020Formatt ing of this note might be different from the original. See Historical Hospital Medical Record f or documentation Historical Provider IMG NM ORDERABLES NM MPI Single Rest Or Stress (01/30/2002 12:00 AM CDT) Anatomical Region Laterality Modality Chest Other Specimen (Source) Anatomical Location Collection Method / Collectio n Time Received Time / Laterality Volume Narrative 01/30/2002 12:00 AM CDT See Historical Hospital Medical Record f or documentation Procedure Note Provider, Historical - 12/09/2020Formatt ing of this note might be different from the original. See Historical Hospital Medical Record f or documentation Historical Provider IMG NM ORDERABLES NM MPI Single Rest Or Stress (01/30/2002 12:00 AM CDT) Anatomical Region Laterality Modality Chest Other Specimen (Source) Anatomical Location Collection Method / Collectio n Time Received Time / Laterality Volume Narrative 01/30/2002 12:00 AM CDT See Historical Hospital Medical [...] documented as of this encounter Care Teams [employer] Global Product Leadership Relationship Specialty Start Date End Date Jaiden Holcomb PCP - General Internal Medicine 02/13/2010/03 MD Jayesh 3305 [facility] [place] [phone] Chastity Montero MD Dermatology 09/23/[address] [place] [address] 98 [place], [place] [address] Johnnie Alcocer MD Surgeon General Surgery 03/23/17 [address] [facility] 300 [place], [place] [phone] Danni Marcus, RN Personal Advocate & 01/09/1901/17 Liaison (PAL) Kyle King Complex 04/23/19 Svetlana Osman, Pharmacist Pharmacotherapy 04/23/19 [facility] [address] [place] [phone] Haylie Cheung, Pharmacist Pharmacist 09/11/19 [facility] [address] [place] [address] Opal, Assigned Sleep 05/08/20 03/27/21 Kendall Meehan MD Provider [address] [facility] 106 [place] [address] Erlinda Barber MD Assigned Neuroscience 05/08/20 01/26/21 420 [facility] 295 [place] [address] Jaiden Holcomb Assigned PCP 05/24/20 MD Jayesh 909 [place] [address] documented as of this encounter
--- OUTSIDE RECORDS SUMMARY | 2022-06-15 12:47 | XMS_ITS | Encounter Summary ---
:1945 Author Organization [place] Address [address] [place] [address] Care Team Providers Name Role Phone Chastity Montero MD Unavailable [phone] Johnnie Alcocer MD Unavailable Danni Marcus RN Unavailable Unavailable Mtm, Ea Complex Unavailable Unavailable Svetlana Osman [facility] Unavailable [phone] Haylie Cheung [facility] Unavailable [phone] Jaiden Holcomb MD Primary Care Provider [phone] Kendall Joseph MD Unavailable Erlinda Barber MD Unavailable Jaiden Holcomb MD Unavailable Reason for Visit Reason Comments Other supply-rafaela Encounter Details Date Type Department Care Team Description 09/16/2020 Communication - [facility] Patience Toussaint NP Other [facility] [address] [place] [address] (supply-by nathaniel) [address] [place] [phone] Social History Tobacco Use Types Packs/Day Years [...] this encounter Miscellaneous Notes Telephone Encounter - Celina Wells - 09/16/2020 1:48 PM CST Faxed supply order to [place] with office visit notes RESOLUTION SPECIALIST documented in this encounter Plan of Treatment Upcoming Encounters Date Type Specialty Care Team Description 11/15/2022 Virtual Visit Pharm Haylie Gonzalez, [facility] [address] [place] [address] (Wo rk) 11/15/2022 Virtual Visit IM/Peds Yane Barraza MD [address] [facility] [place] [address] (Wo rk) 03/03/2023 Virtual Visit Neurology Erlinda Barber MD [address] [facility] 295 [place] [address] (Wo rk) documented as of this encounter Visit Diagnoses Not on filedocumented in this encounter Additional Health Concerns Assessment Noted Time PHQ-9 Depression Total Score: 4 04/12/2019 7:03 AM CDT documented as of this encounter Care Teams Road Roller Operator Hot Mix Relationship Specialty Start Date End Date Jaiden Holcomb PCP - General Internal Medicine 02/13/2010/03 MD Jayesh [address] [place] [address] Chastity Montero MD Dermatology 09/23/14 [place] [address] [facility] 98 [place] [address] Johnnie Alcocer MD Surgeon General Surgery 03/23/17 [address] [facility] 300 [place] [address] Danni Marcus, CHANDLER Personal Advocate & 01/09/1901/17 Liaison (PAL) Mtkinsey, Ea Complex 04/23/19 Svetlana Osman, Pharmacist Pharmacotherapy 04/23/19 [facility] [address] [place] [address] Haylie Cheung, Pharmacist Pharmacist 09/11/19 [facility] [address] [place] [address] Opal, Assigned Sleep 05/08/20 03/27/21 Kendall Meehan MD Provider [address] [place] [address] Erlinda Barber MD Assigned Neuroscience 05/08/20 01/26/21 [address] [facility] 295 [place] [address] Jaiden Holcomb Assigned PCP 05/24/20 MD Jayesh 909 [place] [address] documented as of this encounter
--- OUTSIDE RECORDS SUMMARY | 2022-06-15 12:47 | XMS_ITS | Encounter Summary ---
:1945 Author Organization [place] Address [address] [place] [address] Care Team Providers Name Role Phone Chastity Montero MD Unavailable [phone] Johnnie Alcocer MD Unavailable Danni Marcus RN Unavailable Unavailable Mtm, Ea Complex Unavailable Unavailable Svetlana Osman [facility] Unavailable [phone] Haylie Cheung [facility] Unavailable [phone] Jaiden Holcomb MD Primary Care Provider [phone] Kendall Joseph MD Unavailable Erlinda Barber MD Unavailable Jaiden Holcomb MD Unavailable [phone] Encounter Details Date Type Department Care Team Description 09/25/2020 Travel Social History Tobacco Use Types Packs/Day [...] been in contact with No / Unsure 09/25/2020 10:21 AM ONCOLOGY ADMIN someone who was confirmed or suspected to have Coronavirus / COVID-19? documented as of this encounter Plan of Treatment Upcoming Encounters Date Type Specialty Care Team Description 11/15/2022 Virtual Visit Pharm D Haylie Cheung, [facility] [address] [facility] [place] [phone] (Wo rk) 11/15/2022 Virtual Visit IM/Yane Mathias MD [address] [place] [address] [place] [address] (Wo rk) 03/03/2023 Virtual Visit Neurology Erlinda Barber MD [address] [place] [address] 295 [place], [place] [address] (Wo rk) documented as of this encounter Visit Diagnoses Not on filedocumented in this encounter Additional Health Concerns Assessment Noted Time PHQ-9 Depression Total Score: 4 04/12/2019 7:03 AM CDT documented as of this encounter Care Teams Property Administrator Relationship Specialty Start Date End Date Jaiden Holcomb PCP - General Internal Medicine 02/13/2010/03 MD Jayesh [address] [place] [address] [place] [id number] Chastity Montero MD Dermatology 09/23/[address] [place] [address] 98 [place], [place] [address] Johnnie Alcocer MD Surgeon General Surgery 03/23/[address] [place], [place] [phone] Danni Marcus, RN Personal Advocate & 01/09/1901/17 Liaison (PAL) Mtkinsey, Ea Complex 04/23/19 Svetlana Osman, Pharmacist Pharmacotherapy 04/23/19 [facility] [address] [place], [place] [phone] Haylie Cheung, Pharmacist Pharmacist 09/11/19 [place] [address] [place] [address] Opal, Assigned Sleep 05/08/20 03/27/21 Kendall Meehan MD Provider [address] [place] [address] Erlinda Barber MD Assigned Neuroscience 05/08/20 01/26/21 [address] [facility] 295 [place] [address] Jaiden Holcomb Assigned PCP 05/24/20 MD Jayesh 909 [place], [place] [phone] documented as of this encounter
--- OUTSIDE RECORDS SUMMARY | 2022-06-15 12:47 | XMS_ITS | Encounter Summary ---
:1945 Author Organization [place] Address [address] [place] [address] Care Team Providers Name Role Phone Chastity Montero MD Unavailable [phone] Johnnie Alcocer MD Unavailable Danni Marcus RN Unavailable Unavailable Mtm, Ea Complex Unavailable Unavailable Svetlana Osman [facility] Unavailable [phone] Haylie Cheung [facility] Unavailable [phone] Jaiden Holcomb MD Primary Care Provider [phone] Kendall Joseph MD Unavailable Erlinda Barber MD Unavailable Jaiden Holcomb MD Unavailable [phone] Encounter Details Date Type Department Care Team Description 10/23/2020 Orders Only [facility] Par oxysmal atrial fibrillation (H); [facility] Hx Recurrent PE/DVT -- on [facility] [address] [facility] [address] [place] [address] [...] 05/03/2021 organizations such as catholic groups, unions, fraProfitBricks or athletic groups, or school groups? How [...] [facility] [address] [facility] [place] [address] (Wo rk) 11/15/2022 Virtual Visit [place] [address] [place] [address] [place] [phone] (Wo rk) 03/03/2023 Virtual Visit Neurology Erlinda Barber MD [address] [facility] 295 [place], [place] [address] (Wo rk) documented as of this encounter Procedures Procedure Name Priority Date/Time Associated Diagnosis Comme nts CAPILLARY BLOOD Routine 10/23/2020 10:08 Paroxysmal atrial Res ults for this COLLECTION AM CDT fibrillation (H) procedure a re in the results section. INR Routine 10/23/2020 10:08 Paroxysmal atrial Result s for this AM CDT fibrillation (H) procedure are in Hx Recurrent PE/DVT the resu lts -- on Warfarin section. documented in this encounter Results Capillary Blood Collection (10/23/2020 10:08 AM CDT) Patholo gist Method Time Signature Capillary Capillary 10/23/2020 [place] Blood collection 10:14 AM CDT CLINICS Collection performed [place] Specimen Anatomical Collection Method Collection Time Receive d Time (Source) Location / / Volume Laterality 10/23/2020 10:08 10/23/2020 AM CDT 10:13 AM CDT Galdino Valdez MD LAB - LAB COMMUNICATION Performing Organization Address City/[facility]/ZIP Code Phon e Number [facility] [address] [place] [address] (ABNORMAL) INR (10/23/2020 10:08 AM CDT) P athologist Signature INR 2.20 (H) 0.86 - 10/23/2020 [facility] 1.14 10:47 AM CDT [facility] Comment: This test is intended for monitoring Cou madin therapy. ??Results are not accurate in patients with prolonged INR due to factor deficiency. 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 embolism documented in this encounter Additional Health Concerns Assessment Noted Time PHQ-9 Depression Total Score: 4 04/12/2019 7:03 AM CDT documented as of this encounter Care Teams Cleaner Housekeeping Relationship Specialty Start Date End Date Jaiden Holcomb PCP - General Internal Medicine 02/13/2010/03 MD Jayesh [address] [facility] [place] [address] Chastity Montero MD Dermatology 09/23/[address] [place] [address] Johnnie Alcocer MD Surgeon General Surgery 03/23/[address] [place], [place] [address] Danni Marcus, RN Personal Advocate & 01/09/1901/17 Liaison (PAL) Fernando, Ea Complex 04/23/19 Svetlana Osman, Pharmacist Pharmacotherapy 04/23/19 [place] [address] [place] [address] Haylie Cheung, Pharmacist Pharmacist 09/11/19 [place] [address] [place], [place] [phone] Opal, Assigned Sleep 05/08/20 03/27/21 Kendall Meehan MD Provider [address] [facility] [address] [place], [place] [address] Erlinda Barber MD Assigned Neuroscience 05/08/20 01/26/21 [address] [facility] 295 [place] [address] Jaiden Holcomb Assigned PCP 05/24/20 MD Jayesh 909 [place], [place] [id number] documented as of this encounter
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
--- OUTSIDE RECORDS SUMMARY | 2022-06-15 12:47 | XMS_ITS | Encounter Summary ---
:1945 Author Organization [place] Address [address] [place] [address] Care Team Providers Name Role Phone Chastity Montero MD Unavailable [phone] Johnnie Alcocer MD Unavailable Danni Marcus RN Unavailable Unavailable Mtm, Ea Complex Unavailable Unavailable Svetlana Osman [facility] Unavailable [phone] Haylie Cheung [facility] Unavailable [phone] Jaiden Holcomb MD Primary Care Provider [phone] Kendall Joseph MD Unavailable Erlinda Barber MD Unavailable Jaiden Holcomb MD Unavailable [phone] Reason for Visit Reason Comments Other [facility] Encounter Details Date Type Department Care Team Description 10/23/2020 Communication - [facility] Patience Toussaint NP Other [facility] [address] [place] [address] ([facility]-[address] [place] [address] Social History Tobacco Use Types Packs/Day Years [...] More than 4 times per year 05/03/2021 jain services? Do you belong to any clubs [...] Notes Telephone Encounter - Celina [place] - 10/23/2020 12:32 PM CDT Faxed supply order to [facility] signed by Patience Toussaint and scanned to media documented in this encounter Plan of Treatment Upcoming Encounters Date Type Specialty Care Team Description 11/15/2022 Virtual Visit Pharm D Haylie Cheung, [facility] [address] [facility] [place] [address] (Lena rk) 11/15/2022 Virtual Visit IM/Peds Yane Barraza MD [address] [facility] [place] [address] (Lena max) 03/03/2023 Virtual Visit Neurology Erlinda Barber MD 420 [facility] 295 [place] [address] (Wo rk) documented as of this encounter Visit Diagnoses Not on filedocumented in this encounter Additional Health Concerns Assessment Noted Time PHQ-9 Depression Total Score: 4 04/12/2019 7:03 AM CDT documented as of this encounter Care Teams Pretzel Twister Relationship Specialty Start Date End Date Jaiden Holcomb PCP - General Internal Medicine 02/13/2010/03 MD Jayesh [address] [facility] [facility] [address] [place] [phone] Chastity Montero MD Dermatology 09/23/14 [place] 420 [facility] 98 [place], [place] [address] Johnnie Alcocer MD Surgeon General Surgery 03/23/[address] [place], [place] [phone] Danni Marcus, CHANDLER Personal Advocate & 01/09/1901/17 Liaison (PAL) Mtkinsey, Ea Complex 04/23/19 Svetlana Osman, Pharmacist Pharmacotherapy 04/23/19 [facility] [address] [place], [place] [phone] Haylie Cheung, Pharmacist Pharmacist 09/11/19 [facility] [address] [place], [place] [phone] Opal, Assigned Sleep 05/08/20 03/27/21 Kendall Meehan MD Provider [address] [place], [place] [address] Erlinda Barber MD Assigned Neuroscience 05/08/20 01/26/21 420 [facility] [address] [place] [address] Jaiedn Holcomb Assigned PCP 05/24/20 MD Jayesh 909 [place] [address] documented as of this encounter
--- OUTSIDE RECORDS SUMMARY | 2022-06-15 12:47 | XMS_ITS | Encounter Summary ---
:1945 Author Organization [facility] Address [address] [place] [address] Care Team Providers Name Role Phone Chastity Montero MD Unavailable [phone] Johnnie Alcocer MD Unavailable Danni Marcus RN Unavailable Unavailable Mtm, Ea Complex Unavailable Unavailable Svetlana Osman [facility] Unavailable [phone] Haylie Cheung [facility] Unavailable [phone] Jaiden Holcomb MD Primary Care Provider [phone] Kendall Joseph MD Unavailable Erlinda Barber MD Unavailable Jaiden Holcomb MD Unavailable [phone] Encounter Details Date Type Department Care Team Description 09/25/2020 Anticoagulation Therapy [facility], 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 embolism; Visit Clinic Yarelis Longo RN Paroxysmal atrial fibrillati on (H); [address] care home current use of 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 [facility] [address] [place] [address] Social History [...] 05/03/2021 organizations such as taoism groups, unions, [employer] or athletic groups, or school groups? 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 documented as of this encounter Progress Notes Qing Guy RN - 09/25/2020 12:32 PM CST ANTICOAGULATION FOLLOW-UP Patient Name: Charlette Brush Date: 09/25/2020 Contact Type: Telephone SUBJECTIVE: Patient Findings Comments: The patient was assessed for diet, medication, missed or extra doses, bruising or bleeding, with no problem findings. No questions or concerns. Reviewed previous warfarin dosing with patient. She took warfarin as instructed. INR is therapeutic today. Patient will continue same maintenance dose. Follow up in 4 weeks. Clinical Outcomes Comments: The patient was assessed for diet, medication, missed or extra doses, bruising or bleeding, with no problem findings. No questions or concerns. Reviewed previous warfarin dosing with patient. She took warfarin as instructed. INR is therapeutic today. Patient will continue same maintenance dose. Follow up in 4 weeks. 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 Anticoagulation Care Providers Provider Role Specialty Phone number Galdino Valdez MD Referring Family Medicine [phone] GrahamLucero bowers MD Responsible Internal Medicine [phone] See the Encounter Report to view Anticoagulation Flowsheet and Dosing Calendar (Go to Encounters tabin chart review, and find the Anticoagulation Therapy Visit) Qing Guy RN ION MECHANIC APPRENTICE documented in this encounter Plan of Treatment Upcoming Encounters Date Type Specialty Care Team Description 11/15/2022 Virtual Visit Pharm Haylie Gonzalez, [facility] [address] [facility] [place] [id number] (Lena max) 11/15/2022 Virtual Visit [place] [address] [place] [address] [place] [phone] (Lena max) 03/03/2023 Virtual Visit Neurology Erlinda Barber MD [address] [facility] [address] [place] [address] (Lena max) documented as of this encounter Visit Diagnoses Diagnosis 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 embolism Paroxysmal atrial fibrillation (H) Atrial fibrillation care home current use of anticoagulant t herapy documented in this encounter Additional Health Concerns Assessment Noted Time PHQ-9 Depression Total Score: 4 04/12/2019 7:03 AM CDT documented as of this encounter Care Teams Project Builder Relationship Specialty Start Date End Date Jaiden Holcomb PCP - General Internal Medicine 02/13/2010/03 MD Jayesh [address] [address] [address] [place], [place] [id number] Chastity Montero MD Dermatology 09/23/14 [address] [facility] [address] [place], [place] [address] Johnnie Alcocer MD Surgeon General Surgery 03/23/17 [address] [facility] [address] [place], [place] [id number] Danni Marcus, CHANDLER Personal Advocate & 01/09/1901/17 Liaison (PAL) Fernando, Ea Complex 04/23/19 Svetlana Osman, Pharmacist Pharmacotherapy 04/23/19 [facility] [address] [place], [place] [id number] Haylie Cheung, Pharmacist Pharmacist 09/11/19 [facility] [address] [place], [place] [id number] Opal, Assigned Sleep 05/08/20 03/27/21 Kendall Meehan MD Provider [address] [place], [place] [id number] Erlinda Barber MD Assigned Neuroscience 05/08/20 01/26/21 [address] [facility] [address] [place] [address] Jaiden Holcomb Assigned PCP 05/24/20 MD Jayesh [address] [place] [address] documented as of this encounter
--- OUTSIDE RECORDS SUMMARY | 2022-06-15 12:47 | XMS_ITS | Encounter Summary ---
:1945 Author Organization [facility] Address [address] [place] [address] Care Team Providers Name Role Phone Chastity Montero MD Unavailable [phone] Johnnie Alcocer MD Unavailable Danni Marcus RN Unavailable Unavailable Mtm, Ea Complex Unavailable Unavailable Svetlana Osman [facility] Unavailable [phone] Haylie Cheung [facility] Unavailable [phone] Jaiden Holcomb MD Primary Care Provider [phone] Kendall Joseph MD Unavailable Erlinda Barber MD Unavailable Jaiden Holcomb MD Unavailable [phone] Reason for Visit Reason Comments Other buttocks ulcer Encounter Details Date Type Department Care Team Description 10/21/2020 Office Visit - [facility] Patience Toussaint NP Pressure injury of left ischium, stage 4 (H); [facility] [address] Chronic os teomyelitis, pelvis, left (H); [facility] Morbid obesity with BMI of 50.0-59.9, ad ult (H) [address] [facility] [address] [facility] [address] [place] [id number] Social History Tobacco Use Types Packs/Day Years [...] More than 4 times per year 05/03/2021 zoroastrianism services? Do you belong to any clubs or No 05/03/2021 organizations such as jewish groups, unions, fraternal or athletic groups, or [...] Sign Reading Time Taken Comments Blood Pressure 146/82 10/21/2020 3:22 PM CDT Pulse 64 10/21/2020 3:22 PM CDT Temperature 36.5 ??C (97.7 ??F) 10/21/2020 3:22 PM CDT Respiratory Rate 22 10/21/2020 3:22 PM CDT Oxygen Saturation - - Inhaled Oxygen Concentration - - Weight - - Height - - Body Mass Index - - documented in this encounter Progress Notes Patience Toussaint NP - 10/21/2020 3:20 PM CDT Images from the original note were not included. 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 They arrive today with Fauzia home care nurse. They are currently using dilute hibiclens to wash the area; nystatin powder to periwound rash prn; skin prep spray; endoform; aquacel ag extra; bordered alginate; hypafix tape to the wounds. This is being done by home care two times a day which she is paying oop for. They are using velcro wraps for compression. They are feelingwell today. Denies fevers, chills. No shortness of breath. She has been see by x2 plastic surgeons who feel she is not a surgical candidate without extensive weight loss. She was then sent to bariatrics and she is not a surgical candidate for weight loss and does not want to take any medications to help with weight loss. She has been seen by ID and has been treated x2 with IV antibiotics for recurrent osteomyelitis; they are not interested in treating her further with antibiotics unless there is acute infection. A wound vac does not stay on and will alarm and leak after 3-10 hours after application. She no longer qualifies for home care and must pay oop. The home care nurse is here today to see ifwe can reduce the frequency down to once a day which would help save the patient money. Allergies: Cephalexin, Ciprofloxacin, Clindamycin, Lanolin, Lisinopril, Mupirocin, Neomycin, and Penicillins Medications: Current Outpatient Medications: ? acetaminophen (TYLENOL) 325 MG tablet, Take 975 mg by mouth every 8 (eight) hours as needed for pain., Disp: , Rfl: ? ascorbic acid, vitamin C, (VITAMIN C) 500 MG tablet, Take 500 mg by mouth., Disp: , Rfl: ? atenolol (TENORMIN) 25 MG tablet, Take 25 mg by mouth 2 (two) times a day., Disp: , Rfl: ? calcium/D3/zinc/copper/january (CITRACAL-D3 MAXIMUM PLUS ORAL), Take 0.5 tablets by mouth daily., Disp: , Rfl: ? cetirizine (ZYRTEC) 10 MG tablet, Take 10 mg by mouth 2 (two) times a day., Disp: , Rfl: ? cholecalciferol, vitamin D3, 500 unit, Take 200 Units by mouth., Disp: , Rfl: ? desoximetasone (TOPICORT) 0.05 % Gel, Apply twice daily as needed to arms and legs, Disp: , Rfl: ? fish oil-omega-3 fatty acids (FISH OIL) 300-1,000 mg capsule, Take 2 g by mouth daily., Disp: , Rfl: ? hydroCHLOROthiazide (HYDRODIURIL) 12.5 MG tablet, Take 12.5 mg by mouth., Disp: , Rfl: ? hydrocortisone 2.5 % ointment, Apply topically 2 (two) times a day., Disp: , Rfl: ? levETIRAcetam (KEPPRA) 500 MG tablet, Take 500 mg by mouth 2 (two) times a day. , Disp: , Rfl: ? losartan (COZAAR) 50 MG tablet, Take 50 mg by mouth daily., Disp: , Rfl: ? dmteqjnbasci-sgjbnzuy-rhxvxd (CEROVITE SENIOR) tablet, Take 1 tablet by mouth at bedtime., Disp: ,Rfl: ? nystatin (MYCOSTATIN) cream, Apply topically., Disp: , Rfl: ? sodium hypochlorite (DAKIN'S, HALF-STRENGTH,) external solution, Irrigate with as directed daily.,Disp: , Rfl: ? triamcinolone (KENALOG) 0.1 % ointment, Apply topically., Disp: , Rfl: ? warfarin (COUMADIN) 10 MG tablet, Take 10 mg by mouth daily., Disp: , Rfl: ? zinc gluconate 50 mg tablet, Take twice weekly until bottle runs out., Disp: 25 tablet, Rfl: 0 Current Facility-Administered Medications: ? lidocaine 2 % jelly (XYLOCAINE), , Topical, PRN, Patience Toussaint NP History: Past Medical History: Diagnosis Date ? Acute blood loss anemia ? Adjustment disorder with depressed mood 04/23/2019 Last Assessment & Plan: Patient met with Behavioral Health. Ambivalent if this was helpful. PHQ-9 SCORE 04/11/2019 PHQ-9 Total Score MyChart 4 (Minimal depression) PHQ-9 Total Score 4 Advised patient that this was an intake visit and itmay be beneficial to meet with her for an additional visit. ? Anterior basement membrane dystrophy 03/10/2014 ? Anxiety 04/12/2019 ? Benign essential hypertension 07/30/2003 Last Assessment & Plan: Blood pressure well controlled today. BP Readings from Last 3 Encounters: 04/23/19 122/68 03/20/19 (!) 152/84 03/17/19 (!) 144/77 Continue with Losartan 50 mg daily. Patient will trial stopping Lasix which may be helping to control the blood pressure. If she notes an increase in blood pressure >140/90, janice ? Binge eating 07/10/2011 ? Cataract 07/15/2010 Last Assessment & Plan: Followed by Opthamology-considering cataract surgery. Patient has appointment with Retina Specialist at [facility] on 01/11. 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 Cautioned patient she should not be driving. ? Cellulitis left lower extremity and multiple skin wounds ? Cortical age-related cataract, both eyes 10/02/2018 ? Eczema 10/06/2011 Overview: Derm at [facility] ? Encounter for screening for cardiovascular disorders 08/26/2009 ? Fall 10/18/2017 ? Hx pulmonary embolism ? Hypertension ? Infected wound thigh/perineum, sacral/coccygeal ? Injury of left sciatic nerve ? Iron deficiency anemia due to chronic blood loss 04/23/2019 Last Assessment & Plan: Will recheck Ferritin and TIBC levels today. Concern for chronic blood loss due to draining pressure wound for the past year. Last Ferritin-34 in May 2018 Last Iron level-28 in May 2018 Last Iron binding capacity-329 in May 2018. ? Lower extremity weakness 03/20/2019 Last Assessment & Plan: -pt would benefit from 4 wheeled rolling walker for home use -will complete face to face paperwork ? Lymphedema ? Lymphedema of both lower extremities 10/29/2017 Last [...] please notify the clinic. Monitor weight da ? Macular degeneration (senile) of retina 10/02/2018 Last Assessment & Plan: Appointment with Retina Specialist at [facility] on 01/11/19. ? Morbid obesity (H) ? Myopia 07/15/2010 ? Necrotizing fasciitis (H) 10/28/2017 ? Necrotizing soft tissue infection debridement 10/18/17 ? Nuclear sclerosis of both eyes 10/02/2018 ? Paroxysmal atrial fibrillation (H) 04/23/2019 ? Physical deconditioning 12/14/2017 ? Pressure injury of left buttock, stage 4 (H) 10/29/2017 Pt with fall and prolonged time on the floor in 10/2017 with resultant necrotizing fasciitis. Pt spent almost a year in SNF, still has open wound. Last Assessment & Plan: Pressure wound has been present for one year. Has decreased about 50% in size. Notes discharge daily. Referral placed for Dr. Kajal Huggins at [facility] in [place] per patient request. She has contact i ? Seizure (H) 03/15/2019 Last Assessment & Plan: [...] in the evening, so fatigue doesn't int ? Sepsis (H) ? Sepsis, due to unspecified organism 10/28/2017 ? Sleep apnea CPAP at night ? Vitamin D deficiency 11/23/2011 Overview: (Problem list name updated by automated process. Provider to review and confirm.) ? Weakness left lower limb Physical Exam: BP 146/82 Pulse 64 Temp 97.7 ??F (36.5 ??C) Resp 22 General: Patient presents to clinic in no apparent distress. Head: normocephalic atraumatic Psychiatric: Alert and oriented x3. Respiratory: unlabored breathing; no cough Integumentary: Skin is uniformly warm, dry and pink. Wound #1 Location: left IT Size: 6L x 4W x 4 cm depth positional. No sinus tract present, Wound base: no bone exposed; fibrinous material in the wound bed; otherwise clean viable; no odor No undermining present. Wound is full thickness. There is heavy drainage. Periwound: no denudement, erythema, induration, maceration or warmth. Dressing was saturated today with urine and exudate; was changed 7 hours prior. Circumferential volume measures: No flowsheet data found. Ulceration(s)/Wound(s): VASC Wound 05/15/19 Buttocks (Active) Pre Size Length 6 10/21/20 1500 Pre Size Width 4 10/21/20 1500 Pre Size Depth 4 10/21/20 1500 Pre Total Sq cm 24 10/21/20 1500 Post Size Length 8.5 04/21/20 1400 Post Size Width 4.7 04/21/20 1400 Post Size Depth 7 04/21/20 1400 Post Total Sq cm 39.95 04/21/20 1400 Undermined no 12/12/19 0900 Tunneling pink 08/13/20 1500 Description red, arango, macerated 04/21/20 1400 Prodcut Used ABD Pad;Alginate 08/13/20 1500 VASC Wound 03/24/20 Lt great toe (Active) Pre Size Length 0.2 03/24/20 1100 Pre Size Width 0.3 03/24/20 1100 Pre Size Depth 0.1 03/24/20 1100 Pre Total Sq cm 0.06 03/24/20 1100 Description healed 08/13/20 1500 Lab Values Lab Results Component Value Date SEDRATE 21 (H) 06/16/2020 Lab Results Component Value Date CREATININE 0.53 (L) 06/16/2020 No results found for: HGBA1C Lab Results Component Value Date BUN 21 06/16/2020 Lab Results Component Value Date ALBUMIN 3.3 (L) 06/04/2019 Vitamin D, Total (25-Hydroxy) Date Value Ref Range Status 03/27/2020 47.0 30.0 - 80.0 ng/mL Final Impression: 1. Pressure injury of left ischium, stage 4 (H) 2. Chronic osteomyelitis, pelvis, left (H) 3. Morbid obesity with BMI of 50.0-59.9, adult (H) 08/13/2020 left IT Are any of these wounds new today: No; Location: na Assessment/Plan: 1. Debridement: After discussion of risk factors and verbal consent was obtained 2% Lidocaine HCL jelly was applied, under clean conditions, the right IT ulceration(s) were debrided using currette. Devitalized and nonviable tissue, along with any fibrin and slough, was removed to improve granulation tissue formation, stimulate wound healing, decrease overall bacteria load, disrupt biofilm formation and decrease edge senescence. Total excisional debridement was 24 sq cm from the epidermis/dermis area and into the subcutaneous tissue with a depth of 4 cm. Ulcers were improved afterwards and cleaner and dyer.Measures were unchanged after debridement. 2. Wound treatment: wound treatment will include irrigation and dressings to promote autolytic debridement which will include:we again discussed that this wound was not anticipated to heal; wound careis palliative; the patient was shocked at this information; she still had hope this was going to heal. They are trying to save her money by decreasing the frequency to daily instead of twice per day; Ishowed them the amount of drainage on the old pad and said she will need to have some type of dressing change more frequently then daily; we spoke at length about options; I would like her to use a brief or poise pad or baby diaper to the area and secure with her underwear and change every 2 hours when she uses the restroom; the patient just could not grasp this idea and we went round and round with this; we will have home care try to work with her on this in the home to show her what to do; otherwise to help prevent acute infections and to protect the periwound will need at least daily wound caresfor really good cleansing; drying; periwound attention with nystatin prn and skin prep; can layer [id number] alginates and cover with bordered foam or bordered gauze or bordered alginate; can reinforcewith hypafix tape which the patient's skin is tolerating. Stable 3. Edema: continue elevation and velcro wraps. The compression wraps were applied today in clinic. Stable 4. Nutrition: has already seen bariatrics; does not qualify for surgery; does not want medications;states she does not snack or over eat; she follows high protein diet and continues to gain weight 5. Offloading: she has x2 roho cushions; positions off the wound Patient will follow up with me in 3 months for reevaluation. They were instructed to call the clinic sooner with any signs or symptoms of infection or any further questions/concerns. Answered all questions. Patience Toussaint DNP, RN, STRAW HAT BRUSHER, CWOCN, CFCN, CLT [facility] [phone] This note was electronically signed by Patience Toussaint documented in this encounter Miscellaneous Notes Letter - Historical Provider - 01/01/2021 4:35 AM CDT Letter by Patience Toussaint NP at Author: Patience Toussaint NP Service: -- Author Type: -- Filed: Encounter Date: 10/21/2020 Status: (Other) 10/21/[address] [facility] Wound Dressing Rx and Order Form Customer Service: [phone] Order Status: New Order Verbal: Celina Patient Info: Name: Charlette Brush : 1945 Address: [address] [place] [id number] Insurance Info: Primary: Payor: MEDICARE / Plan: MEDICARE A AND B / Product Type: Medicare / Secondary: BLUE CROSS [facility] [employer] [facility] [id number] - (Medicare) Physician Info: Name: Patience Toussaint NP Dept Address/Phones: [address] [place] [address], [address] [address] Lymphedema circumferential measurements (in cm): Wound info: Encounter Diagnoses Name Primary? ? Pressure injury of left ischium, stage 4 (H) Yes ? Chronic osteomyelitis, pelvis, left (H) ? Morbid obesity with BMI of 50.0-59.9, adult (H) VASC Wound 05/15/19 Buttocks (Active) Pre Size Length 6 10/21/20 1500 Pre Size Width 4 10/21/20 1500 Pre Size Depth 4 10/21/20 1500 Pre Total Sq cm 24 10/21/20 1500 Post Size Length 8.5 04/21/20 1400 Post Size Width 4.7 04/21/20 1400 Post Size Depth 7 04/21/20 1400 Post Total Sq cm 39.95 04/21/20 1400 Undermined no 12/12/19 0900 Tunneling pink 08/13/20 1500 Description red, arango, macerated 04/21/20 1400 Prodcut Used ABD Pad;Alginate 08/13/20 1500 VASC Wound 03/24/20 Lt great toe (Active) Pre Size Length 0.2 03/24/20 1100 Pre Size Width 0.3 03/24/20 1100 Pre Size Depth 0.1 03/24/20 1100 Pre Total Sq cm 0.06 03/24/20 1100 Description healed 08/13/20 1500 Drainage: Moderate Thickness: Full Duration of Need: 30 Days Supply: 30 Start Date: 10/21/2020 Starter Kit: Ancillary Kit (saline, gloves, gauze) Qualifying wound/Debridement Yes Dressing Type Brand Size Number of pieces Frequency of change ?? Primary Aquacel extra ?? 6''x6'' ??60 Twice a day ?? Endoform AG ?? 2''x2'' 60 Twice a day ?? Eclypse bordered adhesive dressing ?? [id number] 60 Twice a day ?? Kerra Max gentle border ?? 8''x8'' 60 Twice a day ?? Saline ?? 500mL 1 bottle Twice a day ?? Hibiclens ?? 4 oz 1 bottle twice a day ?? Note: If total out of pocket is more than $50.00 please contact the patient before processing order. ?? OK to forward to covered supplier. ?? Electronically Signed Physician: Patience Toussaint NP Date: 10/21/2020 Patient Instructions - HE - Patience Toussaint NP - 10/21/2020 3:20 PM CDT Images from the original note were not included. Patient Instructions by Patience Toussaint NP at 10/21/2020 3:20 PM Author: Patience Toussaint NP Service: -- Author Type: Nurse Practitioner Filed: 10/21/2020 4:35 PM Encounter Date: 10/21/2020 Status: Addendum Cable Placer: Celina Frias CMA ([employer] Farmworker) Related Notes: Original Note by Patience Toussaint, MANAGER PAID (Nurse Practitioner) filed at 10/21/2020 3:58 PM Continue home care 2 times per day Cleanse the wound and skin surrounding the wound with dilute hibiclens (30cc in 500cc NS) Use bulk 4x4 gauze Thoroughly but gently dry Apply Nystatin antifungal powder to the rash surrounding the wound; use sparingly; rub into the skinand dust away the excess to avoid caking Chadron the periwound skin with skin prep spray this will seal the powder down too and allow the dressing to stick Tuck double layer plain calcium alginate such as aquacel .38''x18'' Cover with bordered alginate dressing Can also trial just using a brief or pad or baby diaper to absorb the drainage Today we ordered supplies for you from [employer]. To reorder supplies or if you have any questions aboutyour order please call [employer] Customer Service at You will need to reposition frequently; keep direct pressure off of the wound or reddened area Reposition Every 1-2 hours while in bed; left, right; supine; repeat Reposition Every 15 minutes while up in a chair; chair push ups Stand every 30 minutes while in a chair if able Obtain a seat cushion; can get a 4 high density foam at [employer] [facility]; or [employer] or J-cushion from [employer]; or we can order a ROHO cushion if you qualify for this type of cushion 4 high density foam cushion [employer] Cushion Nacho Cushion Roho Cushion [employer] [facility] [employer] [address] [place] [address] [place] [address] [place] [address] [email or web address] [address] [place] [address] [email or web address] [phone] [facility] [address] [place] [address] Chair Pushups Bed Positioning Addendum Note - Celina Frias - 10/21/2020 3:20 PM CDT Addendum Note by Celina Frias CMA at 10/21/2020 3:20 PM Author: Celina Frias CMA Service: -- Author Type: [employer] Farmworker Filed: 10/21/2020 5:09 PM Encounter Date: 10/21/2020 Status: Signed Cable Placer: Celina Frias CMA (D[employer] Farmworker) Addended by: CELINA FRIAS on: 10/21/2020 05:09 PM Modules accepted: Orders documented in this encounter Plan of Treatment Upcoming Encounters Date Type Specialty Care Team Description 11/15/2022 Virtual Visit Pharm Haylie Gonzalez, [facility] [address] [place] [address] (Lena max) 11/15/2022 Virtual Visit [place] [address] [place] [address] [place] [id number] (Lena max) 03/03/2023 Virtual Visit Neurology Erlinda Barber MD [address] [facility] [address] [place], [place] [id number] (Lena max) documented as of this encounter Visit Diagnoses Diagnosis Pressure injury of left ischium, stage 4 (H) Chronic osteomyelitis, pelvis, left (H) Morbid obesity with BMI of 50.0-59.9, ad ult (H) documented in this encounter Additional Health Concerns Assessment Noted Time PHQ-9 Depression Total Score: 4 04/12/2019 7:03 AM CDT documented as of this encounter Care Teams Furnace Roaster Relationship Specialty Start Date End Date Jaiden Holcomb PCP - General Internal Medicine 02/13/2010/[address]esh [address] [facility] [facility] [address] [place] [id number] Chastity Montero MD Dermatology 09/23/14 [address] [facility] [address] [place], [place] [id number] Johnnie Alcocer MD Surgeon General Surgery 03/23/17 [address] [facility] [address] [place] [address] Danni Marcus, CHANDLER Personal Advocate & 01/09/1901/17 Liaison (PAL) Fernando Ea Complex 04/23/19 Svetlana Osman, Pharmacist Pharmacotherapy 04/23/19 [facility] [address] [place], [place] [id number] Haylie Cheung, Pharmacist Pharmacist 09/11/19 [place] [address] [place] [address] Opal, Assigned Sleep 05/08/20 03/27/21 Kendall Meehan MD Provider [address] [place], [place] [id number] Erlinda Barber MD Assigned Neuroscience 05/08/20 01/26/21 [address] [facility] [address] Provider [place], [place] [address] Jaiden Holcomb Assigned PCP 05/24/20 MD Jayesh [address] [place], [place] [address] documented as of this encounter
--- OUTSIDE RECORDS SUMMARY | 2022-06-15 12:47 | XMS_ITS | Encounter Summary ---
:1945 Author Organization [place] Address [address] [place] [address] Care Team Providers Name Role Phone Chastity Montero MD Unavailable [phone] Johnnie Alcocer MD Unavailable Danni Marcus RN Unavailable Unavailable Mtm, Ea Complex Unavailable Unavailable Svetlana Osman [facility] Unavailable [phone] Haylie Cheung [facility] Unavailable [phone] Jaiden Holcomb MD Primary Care Provider [phone] Kendall Joseph MD Unavailable Erlinda Barber MD Unavailable Jaiden Holcomb MD Unavailable Reason for Visit Reason Comments Weight Problem Encounter Details Date Type Department Care Team Description 09/16/2020 Office Visit - [facility] Braxton Lala, Morbid obesity with BMI of 50.0-59.9, adult (H); [facility] and MD Lymphedema Bariatrics Care [facility] [address] [address] [facility] [address] [address] [place], [place] [phone] (Work) [phone] Social History Tobacco Use Types Packs/Day Years [...] More than 4 times per year 05/03/2021 rastafari services? Do you belong to any clubs [...] - Inhaled Oxygen Concentration - - Weight 166 kg (366 lb) 09/16/2020 11:00 AM COMPLIANCE MONITOR Height 170.2 cm (5' 7) 09/16/2020 11:00 AM COMPLIANCE MONITOR Body Mass Index 57.32 09/16/2020 11:00 AM COMPLIANCE MONITOR documented in this encounter Progress Notes Braxton Lala MD - 09/16/2020 12:15 PM CST Charlette Brush is 75 y.o. female who presents for a billable video visit today. How would you like to obtain your AVS? MyChart. If dropped from the video visit, the video invitation should be resent by: Send to e-mail at: [email or web address] Will anyone else be joining your video visit? No Video Start Time: 12:15 pm Notes increased emotional issues w/ her care/insurance. Has been having home health stop treatment and had to appeal to medicare (successful) and was draining for her. Some issues w/ her caregiver and not feeling well cared for her and some financial stress over the matters. Having some constipation issues, using dulcolax and having one every day but difficult. Typical regimen: gluten free mostly and clean. Meals are timed. 3 meals and a snack around 2:30-3pm. Protein awareness improved. On track with about 100g/day. Recent wound clinic visit still variable healing. Limited mobility. Has been trying to get up and around from 20-30minutes when nice outside. Using walker. No interest in naltrexone today. Has her bicycle in the home. Leg edema reported as stable. not as much trouble below the knees but above there and hip area. Using her pumps/wraps. 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 She's reluctant to try naltrexone therapy and medicare doesn't cover saxenda for weight loss. 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 Plan: 1. Good job managing a stressful time recently with your home care/finances. 2. Continuing to aim for 1500kcal and 80-110g of lean protein daily with meals every 5 hours should help keep you on track. 3. Great work with exercise/edema pumps and mindful wound management. Continue to follow lymphedema clinic/wound clinic guidance. Provider Notes: see above Video-Visit Details Type of service: Video Visit Video End Time (time video stopped): 12:42 PM Originating Location (pt. Location): Home Distant Location (provider location): [facility] [place] Platform used for Video Visit: Yossi LIANCE MONITOR documented in this encounter Miscellaneous Notes Patient Instructions - HE - Braxton Lala MD - 09/16/2020 12:15 PM COMPLIANCE MONITOR Plan: 1. Good job managing a stressful time recently with your home care/finances. 2. Continuing to aim for 1500kcal and 80-110g of lean protein daily with meals every 5 hours should help keep you on track. 3. Great work with exercise/edema pumps and mindful wound management. Continue to follow lymphedema clinic/wound clinic guidance. Example Meal Plan for a 7110-6508 Calorie Diet: In order to fuel your [...] low in olive oil: 90-100 calories. 5oz Portuguese Yogurt (Fage plain classic: ~150 michael) Handful [...] Water Dinner: 325 calories 4oz of fresh, Harney salmon. Broiled (salt/pepper/dill) for about 8-8.5 minutes [...] your plan execution. 5. Call if problems/concerns. BragBet is a great tool to stay in [...] supplement or a Hair and Nail multivitamin. LEAN PROTEIN SOURCES Getting 20-30 grams of [...] Portion Calories Grams of Protein Nonfat, plain Portuguese yogurt (10 grams sugar or less) 3/4 [...] (broiled, grilled, baked) 3 ounces 100 21 [place]/Tuna (broiled, grilled, baked) 3 ounces 150-180 21 Shrimp, Scallops, Lobster, Crab 3 ounces 100 21 Pork loin, Pork Tenderloin 3 ounces 150 21 Boneless, skinless chicken /turkey breast (broiled, grilled, baked) 3 ounces 120 21 [place], [place], [place], and Venison 3 ounces 120 21 Lean cuts of red meat and pork (sirloin, round, tenderloin, flank, ground 93%-96%) 3 ounces 170 21 Lean or Extra Lean Ground Squires 1/2 cup 150 20 90-95% Lean Squires Burger 1 melanie 140-180 21 Low-fat casserole with lean meat 3/4 cup 200 17 Luncheon Meats (turkey, lean ham, roast beef, chicken) 3 ounces 100 21 Egg (boiled, poached, scrambled) 1 Egg 60 7 Egg Substitute 1/2 cup 70 10 Nuts (limit to 1 serving per day) 3 Tbsp. 150 7 Nut Chadwicks (peanut, almond) Limit to 1 serving or less daily 1 Tbsp. 90 4 Soy Burger (varies) 1 90-130 15 Garbanzo, Black, Mena Beans 1/2 cup 110 7 Refried Beans 1/2 cup 100 7 Kidney and Michaels beans 1/2 cup 110 7 Tempeh 3 oz 175 18 Vegan crumbles 1/2 cup 100 14 Tofu 1/2 cup 110 14 [place] (beans and extra lean beef or turkey) 1 cup 200 23 Lentil Stew/Soup 1 cup 150 12 Black Campbell Soup 1 cup 175 12 On-the-Go Breakfast Ideas As of 2015, the latest research shows what a huge impact eating breakfast has on losing weight and feeling your best. People lose more weight when they make breakfast their biggest meal of the day compared to Dinner, but even if you cannot go to that degree, getting a breakfast that has at least 20 grams of protein and even a moderate amount of fat is ideal for maintaining good energy through the dayand limits overeating in the evening hours. The following are some quick and easy suggestions for atleast getting something of substance into your body in the morning. Enjoy! Eating breakfast within 90 minutes of waking up is an important part of taking care of your body. After sleeping for hours, your body is in need of fuel. An ideal breakfast is a combination of protein,whole-grain carbohydrates, or fruit. Here???s why: -Protein digests very slowly in the body, helping you feel more satisfied. -Whole grains provide dietary fiber, which also digests slowly and helps keep your gut clean. -Fruit is a great source of vitamins, minerals, and fiber. Each one of these breakfast combinations has between 200-300 calories and 15-20 grams of protein. Feel free to mix and match! Protein: Choose -1/2 cup low-fat cottage cheese -2 hard boiled eggs , or one cooked in olive oil (low/slow heat). -1 low fat string cheese stick -1 Tablespoon natural peanut butter -Didi-Dache vegetarian sausage melanie (found in freezer section) -1 slice lowfat cheese -6 oz 2% or lowfat Portuguese yogurt, such as Fage or Oikos. PLUS Whole Grains: Choose??? -1 whole wheat Burkinan muffin -1 whole wheat eliane, half -1/2 Fiber One frozen muffin, thawed -1/2 Fiber One toaster pastry -1 whole wheat bagel thin -1/2 cup Kashi cereal -1 Kashi waffle (or other whole grain high-fiber waffle) OR Fruit: Choose -1/3 cup blueberries -1/2 banana (or a plantain- similar to a banana, yet smaller) -1/2 cup cantaloupe cubes -1 small apple -1 small orange -1/2 cup strawberries *Adapted from Diabetes , fall Ten Breakfasts Under 250 calories Ideally, getting between 350-600 calories (depending on starting height and weight)for breakfast is ideal for avoiding hunger later in the day, adjust/add to the following accordingly: One- 250 calories, 8.5 g protein 1 slice whole-grain toast 1 Tbsp peanut butter ?? banana Two- 250 calories, 8 g protein ?? cup nonfat/lowfat yogurt 1/3rd cup diced no-sugar peaches 1/3rd cup cereal (like Special K, Cheerios, or bran flakes) Three- 250 calories, 25 g protein 1 egg scrambled with 1 oz skim milk ?? cup shredded cheddar ?? whole grain Burkinan muffin 1 oz [place]amakee escudero 1 tsp margarine spread Four- 225 calories, 25 g protein 1/2 cup Kashi Go-Lean cereal ?? cup skim milk mixed with 1 scoop Bariatric Advantage protein powder ?? cup no-sugar diced pears Five- 250 calories, 20 g protein ?? cup oatmeal prepared with skim milk, 1 scoop protein powder, and sugar-free maple syrup Six- 200 calories, 5 g protein 1 whole grain waffle, toasted 1 tablespoon creamy peanut or almond butter Seven- 250 calories, 19 g protein Breakfast sandwich: 1 slice whole grain toast, cut in half. Add 1 scrambled egg and one slice cheddar cheese. Eight- 250 calories, 15 g protein 2 eggs scrambled with 1/3 cup frozen spinach (heat before adding to eggs) and 2 tablespoons low fat cream cheese. Nine- 150 calories, 15 g protein 2/3rd cup cottage cheese ?? cup cantaloupe Ten- 200 calories, 20 g protein Fruit smoothie made with 4 oz. nonfat Portuguese yogurt, ?? cup berries, 1 scoop protein powder, and 4 ozskim milk. Ten Lunches Under 250 Calories Aim for lunch to be around 300-400 calories a day when trying to lose weight and get that protein in! One- 200 calories, 11 g protein 1/3 cup tuna salad made with light lee on 1 slice whole grain bread 1 small peeled apple Two- 250 calories, 16 g protein 1/3 cup lowfat cottage cheese ?? cup cooked green beans ?? small fruit cocktail (in natural juice) Three- 200 calories, 11 g protein ?? grilled cheese sandwich on whole grain bread with lowfat cheese 2/3rd cup of tomato soup Four- 250 calories, 22 g protein Deli wrap: 1 oz sliced turkey, 1 oz sliced ham, 1 oz sliced chicken rolled up with 1 slice low-fat cheese 1 small orange Five- 250 calories, 28 g protein 2/3rd cup chili with 1 oz shredded cheese 4 saltine crackers Six- 250 calories, 22 g protein 1 cup fresh spinach with 2 oz chicken, 1/3rd cup mandarin oranges, and 2 tablespoons sliced almonds with 1 tablespoon light vinaigrette dressing Seven- 200 calories, 11 g protein 1 Tbsp sugar-free preserves and 1 Tbsp peanut butter on 1 slice whole grain toast ?? cup nonfat/lowfat Portuguese yogurt Eight- 250 calories, 18 g protein 1 small soft-shell chicken taco with 1 oz shredded cheese, lettuce, tomato, salsa, and 1 Tbsp light sour cream ?? cup black beans Nine- 225 calories, 13 g protein 2 ounces baked chicken 1/4 cup mashed potatoes ?? cup green beans Ten- 200 calories, 21 g protein Deli eliane: 2 oz roast beef or other deli meat with 1 tsp Harshal mayonnaise and sliced tomato, onion, and lettuce 1/3rd cup cottage cheese Ten Dinners Under 300 calories If you're eating a large breakfast and medium lunch, keep dinner small. 300-400 calories is ideal for most people depending on their caloric needs. One- 300 calories, 12 g protein 1-inch thick slice of turkey meatloaf ?? cup baked butternut squash Two- 200 calories, 9 g protein Bread-less BLT: 3 slices turkey escudero, sliced tomato, wrapped in a large lettuce leaf ?? cup peeled fruit Three- 275 calories, 36 g protein 3 oz roasted chicken ?? cup cooked broccoli ?? cup shredded cheddar cheese ?? cup unsweetened applesauce Four- 200 calories, 25 g protein 3 oz baked tilapia 1/3rd cup cooked carrots ?? cup yogurt Five- 250 calories, 20 g protein Grilled ham ???n??? Syrian: spread 2 tsp light margarine on 1 slice of whole grain bread. Cut bread in half, layer 2 oz deli ham with 1 piece of Syrian cheese and grill until cheese is melted. ?? cup cooked vegetables Six- 250 calories, 18 g protein Vegetarian cheeseburger: 1 Boca cheeseburger topped with lettuce, onion, tomato, and ketchup/mustard ?? cup sweet potato fries Seven- 250 calories, 18 g protein Pork pot roast: 2 oz roasted pork loin, 1/3rd cup roasted carrots, ?? medium potato, cooked with ?? cup gravy Eight- 300 calories, 25 g protein 2 oz meatballs (about 2 small meatballs) ?? cup spaghetti sauce 1/2 piece toast topped with 1 tsp light margarine and topped with garlic powder, toasted in oven Nine- 250 calories, 16 g protein Mauritian pizza: one 8?? corn tortilla topped with 2 oz chicken, ?? cup salsa, 2 tablespoons black beans, 2 tablespoons shredded cheese. Bake until cheese is melted. Ten- 250 calories, 22 g protein Shrimp stir-humphrey: 3 oz cooked shrimp, 1/6th onion, ?? pepper, ?? cup chopped carrots saut??ed in 1 tablespoon olive oil, topped with 2 tablespoons stir humphrey sauce and a pinch of sesame seeds LIANCE MONITOR documented in this encounter Plan of Treatment Upcoming Encounters Date Type Specialty Care Team Description 11/15/2022 Virtual Visit Pharm D Haylie Cheung, [facility] [address] [place], [place] [address] (Wo rk) 11/15/2022 Virtual Visit [place] [address] [place] [address] [place] [address] (Wo rk) 03/03/2023 Virtual Visit Neurology Erlinda Barber MD [address] [facility] [address] [place] [address] (Wo rk) documented as of this encounter Visit Diagnoses Diagnosis Morbid obesity with BMI of 50.0-59.9, ad ult (H) Lymphedema Other lymphedema documented in this encounter Additional Health Concerns Assessment Noted Time PHQ-9 Depression Total Score: 4 04/12/2019 7:03 AM CDT documented as of this encounter Care Teams Development Geologist Relationship Specialty Start Date End Date Jaiden Holcomb PCP - General Internal Medicine 02/13/2010/03 MD Jayesh [address] [place] [address] [place] [address] Chastity Montero MD Dermatology 09/23/[address] [place], [place] [address] Johnnie Alcocer MD Surgeon General Surgery 03/23/[address] [place], [place] [address] Danni Marcus, CHANDLER Personal Advocate & 01/09/1901/17 Liaison (PAL) Fernando, Kyle Complex 04/23/19 Svetlana Osman, Pharmacist Pharmacotherapy 04/23/19 [facility] [address] [place], [place] [address] Haylie Cheung, Pharmacist Pharmacist 09/11/19 [facility] [address] [place], [place] [phone] Opal, Assigned Sleep 05/08/20 03/27/21 Kendall Meehan MD Provider [address] [place], [place] [address] Erlinda Barber MD Assigned Neuroscience 05/08/20 01/26/21 [address] [facility] [address] Provider [place], [place] [phone] Jaiden Holcomb Assigned PCP 05/24/20 MD Jayesh [address] [place] [address] documented as of this encounter
--- OUTSIDE RECORDS SUMMARY | 2022-06-15 12:47 | XMS_ITS | Encounter Summary ---
:1945 Author Organization [facility] Address [address] [place] [address] Care Team Providers Name Role Phone Chastity Montero MD Unavailable [phone] Johnnie Alcocer MD Unavailable Danni Marcus RN Unavailable Unavailable Mtm, Ea Complex Unavailable Unavailable Svetlana Osman [facility] Unavailable [phone] Haylie Cheung [facility] Unavailable [phone] Jaiden Holcomb MD Primary Care Provider [phone] Kendall Joseph MD Unavailable Erlinda Barber MD Unavailable Jaiden Holcomb MD Unavailable [phone] Encounter Details Date Type Department Care Team Description 10/23/2020 Travel Social History Tobacco Use Types Packs/Day [...] Gonzalez, [facility] [address] [facility] [place] [id number] (Wo rk) 11/15/2022 Virtual Visit IM/Yane Mathias MD [address] [place] [address] [place] [phone] (Wo rk) 03/03/2023 Virtual Visit Neurology Erlinda Barber MD [address] [place] [address] 295 [place], [place] [address] (Wo rk) documented as of this encounter Visit Diagnoses Not on filedocumented in this encounter Additional Health Concerns Assessment Noted Time PHQ-9 Depression Total Score: 4 04/12/2019 7:03 AM CDT documented as of this encounter Care Teams Bending Machine Operator Relationship Specialty Start Date End Date Jaiden Holcomb PCP - General Internal Medicine 02/13/2010/03 MD Jayesh [address] [place] [address] [place] [id number] Chastity Montero MD Dermatology 09/23/[address] [place] [address] 98 [place], [place] [address] Johnnie Alcocer MD Surgeon General Surgery 03/23/[address] [place], [place] [phone] Danni Marcus, RN Personal Advocate & 01/09/1901/17 Liaison (PAL) Mtkinsey, Ea Complex 04/23/19 Svetlana Osman, Pharmacist Pharmacotherapy 04/23/19 [facility] [address] [place], [place] [phone] Haylie Cheung, Pharmacist Pharmacist 09/11/19 [place] [address] [place] [address] Opal, Assigned Sleep 05/08/20 03/27/21 Kendall Meehan MD Provider [address] [place] [address] Erlinda Barber MD Assigned Neuroscience 05/08/20 01/26/[address] [facility] [address] [place] [address] Jaiden Holcomb Assigned PCP 05/24/20 MD Jayesh [address] [place] [address] documented as of this encounter
--- OUTSIDE RECORDS SUMMARY | 2022-06-15 12:47 | XMS_ITS | Encounter Summary ---
:1945 Author Organization [facility] Address [address] [place] [address] Care Team Providers Name Role Phone Chastity Montero MD Unavailable [phone] Johnnie Alcocer MD Unavailable Danni Marcus RN Unavailable Unavailable Mtm, Ea Complex Unavailable Unavailable Svetlana Osman [facility] Unavailable [phone] Haylie Cheung [facility] Unavailable [phone] Jaiden Holcomb MD Primary Care Provider [phone] Kendall Joseph MD Unavailable Erlinda Barber MD Unavailable Jaiden Holcomb MD Unavailable [phone] Reason for Visit Reason Comments Other Order Clarification Encounter Details Date Type Department Care Team Description 10/23/2020 [facility] Patience Toussaint NP Other ([facility] [address] [place] [address]) [address] [place] [phone] Social History Tobacco Use Types Packs/Day Years [...] or relatives? How often do you attend shinto or More than 4 times per year 05/03/2021 latter-day services? Do you belong to any clubs or No 05/03/2021 organizations such as shinto groups, unions, fraternal or athletic groups, or [...] this encounter Miscellaneous Notes Telephone Encounter - Stefanie Ramirez RN - 10/23/2020 11:08 AM CDT Spoke with home care nurse to clarify dressing orders. Per Patience Toussaint NP home care needs to work with the patient to see if they could use a large pad or baby diaper in her underwear throughout the day to manage the drainage if and when the dressing came off; until the patient is independent with this then it will have to be twice per day; once the patient gets the hang of it and feels comfortablecan reduce to once per day. Home care nurse agrees on plan with the goal of once daily dressing changes when patient is independent in managing drainage if/when dressing comes off. Telephone Encounter - Angelina Wood - 10/23/2020 9:17 AM CDT Caller: Latia Doris, [facility] Provider: REMY Toussaint Detailed reason for call: Patient's HC nurse would like a call back to discuss patients current wound care orders and clarify the frequency. Best phone number to contact: [phone] Best time to contact: After 10AM today Ok to leave a detailed message: Yes Ok to speak to authorized person if needed: N/A (Noted to patient if reason is related to wound or incision, to please send a photo via email or [employer].) documented in this encounter Plan of Treatment Upcoming Encounters Date Type Specialty Care Team Description 11/15/2022 Virtual Visit Pharm Haylie Gonzalez, [facility] [address] [facility] [place] [address] (Wo rk) 11/15/2022 Virtual Visit IM/Peds Yane Barraza MD [address] [place] [address] [place] [address] (Wo rk) 03/03/2023 Virtual Visit Neurology Erlinda Barber MD [address] [place] [address] 295 [place] [address] (Wo rk) documented as of this encounter Visit Diagnoses Not on filedocumented in this encounter Additional Health Concerns Assessment Noted Time PHQ-9 Depression Total Score: 4 04/12/2019 7:03 AM CDT documented as of this encounter Care Teams High School Assistant Football Coach Relationship Specialty Start Date End Date Jaiden Holcomb PCP - General Internal Medicine 02/13/2010/03 MD Jayesh [address] [place] [address] [place] [address] Chastity Montero MD Dermatology 09/23/14 [address] [facility] 98 [place], [place] [address] Johnnie Alcocer MD Surgeon General Surgery 03/23/[address] [place], [place] [phone] Danni Marcus, RN Personal Advocate & 01/09/1901/17 Liaison (PAL) Kyle King Complex 04/23/19 Svetlana Osman, Pharmacist Pharmacotherapy 04/23/19 [facility] [address] [place] [address] Hayile Cheung, Pharmacist Pharmacist 09/11/19 [facility] [address] [place] [address] Opal, Assigned Sleep 05/08/20 03/27/21 Kendall Meehan MD Provider [address] [facility] 106 [place] [address] Erlinda Barber MD Assigned Neuroscience 05/08/20 01/26/21 420 [facility] 295 [place] [address] Jaiden Holcomb Assigned PCP 05/24/20 MD Jayesh [address]09 [place] [address] documented as of this encounter
--- OUTSIDE RECORDS SUMMARY | 2022-06-15 12:47 | XMS_ITS | Encounter Summary ---
:1945 Author Organization [facility] Address [address] [place] [address] Care Team Providers Name Role Phone Chastity Montero MD Unavailable [phone] Johnnie Alcocer MD Unavailable Danni Marcus RN Unavailable Unavailable Mtm, Ea Complex Unavailable Unavailable Svetlana Osman [facility] Unavailable [phone] Haylie Cheung [facility] Unavailable [phone] Jaiden Holcomb MD Primary Care Provider [phone] Kendall Joseph MD Unavailable Erlinda Barber MD Unavailable Jaiden Holcomb MD Unavailable [phone] Encounter Details Date Type Department Care Team Description 10/01/2020 [facility] Hypoalbuminemia Laboratory [address] [facility] [address] [place] [address] Social [...] 05/03/2021 organizations such as muslim groups, unions, fraBirdi or athletic groups, or school groups? How [...] been in contact with No / Unsure 10/01/2020 8:43 AM CDT someone who was confirmed or suspected to have Coronavirus / COVID-19? documented as of this encounter Plan of Treatment Upcoming Encounters Date Type Specialty Care Team Description 11/15/2022 Virtual Visit Pharm D Haylie Cheung, [facility] [address] [place] [address] [place] [address] (Wo rk) 11/15/2022 Virtual Visit [place] [address] [place] [address] [place] [address] (Wo rk) 03/03/2023 Virtual Visit Neurology Erlinda Barber MD [address] [facility] 295 [address] (Wo rk) documented as of this encounter Procedures Procedure Name Priority Date/Time Associated Diagnosis Comme nts PROTEIN TIMED URINE Routine 10/01/2020 8:00 AM Hypoalbuminemia Results for this CDT procedure are i n the results section. CREATININE TIMED Routine 10/01/2020 8:00 AM Hypoalbuminemia Re sults for this URINE CDT procedure are i n the results section. documented in this encounter Results (ABNORMAL) Creatinine timed urine (10/01/2020 8:00 AM CDT) Patholo gist Method Time Signature Creatinine 37 mg/dL 10/01/2020 [facility] Urine 2:26 PM CDT [facility] Creatinine 0.35 (L) 0.80 - 10/01/2020 [facility] Urine Timed 1.80 2:26 PM CDT [facility] Comment: Units: g/24h Volume in mL 950 mL 10/01/2020 8:58 AM CDT [facility] Duration in hours 24 HR h 10/01/2020 8:58 AM CDT [facility] Specimen Anatomical Collection Method Collection Time Receive d Time (Source) Location / / Volume Laterality 10/01/2020 8:00 AM 8:55 CDT AM CDT Jaiden Holcomb MD LAB - URINE ORDERABLES Performing Organization Address City/[facility]/ZIP Code Phon e Number [facility] [address] [place] [address] [phone] [facility] [place] [address] (ABNORMAL) Protein timed urine with Creat Ratio (10/01/2020 8:00 AM CDT) Analysis Performed At Patho logist Time Signature Protein Random 0.30 g/L 10/01/2020 [facility] Urine 2:26 PM CDT [facility] Protein Total 0.28 (H) 0.04 - 10/01/2020 [facility] 24 Hr Urine 0.23 2:26 PM CDT [facility] Comment: Units: g/24h Protein Total Urine 0.80 (H) 0 - 0.2 g/g 10/01/2020 2:26 PM [facility] g/gr Creatinine Cr T [facility] Specimen Anatomical Collection Method Collection Time Receive d Time (Source) Location / / Volume Laterality Urine specimen 10/01/2020 8:00 AM 021 8:55 (specimen) CDT AM CDT Jaiden Holcomb MD LAB - URINE ORDERABLES Performing Organization Address City/[facility]/ZIP Code Phon e Number [address] documented in this encounter Visit Diagnoses Diagnosis Hypoalbuminemia Other disorders of plasma protein metabo lism documented in this encounter Additional Health Concerns Assessment Noted Time PHQ-9 Depression Total Score: 4 04/12/2019 7:03 AM CDT documented as of this encounter Care Teams Calciminer Relationship Specialty Start Date End Date Jaiden Holcomb PCP - General Internal Medicine 02/13/2010/03 MD Jayesh [address] [facility] [address] [place] [id number] Chastity Montero MD Dermatology 09/23/14 [address] [facility] 98 [id number] Johnnie Alcocer MD Surgeon General Surgery 03/23/17 [address] [facility] [address] [place], [place] [phone] Danni Marcus, CHANDLER Personal Advocate & 01/09/1901/17 Liaison (PAL) Fernando, Ea Complex 04/23/19 Svetlana Osman, Pharmacist Pharmacotherapy 04/23/19 [facility] [address] [place], [place] [phone] Haylie Cheung, Pharmacist Pharmacist 09/11/19 [facility] [address] [place] [address] Opal, Assigned Sleep 05/08/20 03/27/21 Kendall Meehan MD Provider [address] [place] 106 [address] Erlinda Barber MD Assigned Neuroscience 05/08/20 01/26/21 [address] [facility] 295 Provider [id number] Jaiden Holcomb Assigned PCP 05/24/20 MD Jayesh 909 [place], [place] [address] documented as of this encounter
--- OUTSIDE RECORDS SUMMARY | 2022-06-15 12:47 | XMS_ITS | Encounter Summary ---
:1945 Author Organization [facility] Address [address] [place] [address] Care Team Providers Name Role Phone Chastity Montero MD Unavailable Johnnie Alcocer MD Unavailable Danni Marcus RN Unavailable Unavailable Mtm, Ea Complex Unavailable Unavailable Svetlana Osman [facility] Unavailable [phone] Haylie Cheung [facility] Unavailable [phone] Jaiden Holcomb MD Primary Care Provider [phone] Kendall Joseph MD Unavailable Erlinda Babrer MD Unavailable Jaiden Holcomb MD Unavailable [phone] Encounter Details Date Type Department Care Team Description 09/15/2020 Records - [facility] HE CONVERSION Scan, Non-Provider [...] [facility] [address] [facility] [place] [id number] (Wo rk) 11/15/2022 Virtual Visit IM/Yane Mathias MD [address] [place] [address] [place] [phone] (Wo rk) 03/03/2023 Virtual Visit Neurology Erlinda Barber MD [address] [place] [address] 295 [place] [address] (Wo rk) documented as of this encounter Visit Diagnoses Not on filedocumented in this encounter Additional Health Concerns Assessment Noted Time PHQ-9 Depression Total Score: 4 04/12/2019 7:03 AM CDT documented as of this encounter Care Teams Production Director Relationship Specialty Start Date End Date Jaiden Holcomb PCP - General Internal Medicine 02/13/2010/03 MD Jayesh [address] [place] [address] [place] [phone] Chastity Montero MD Dermatology 09/23/[address] [place] [address] 98 [place] [address] Johnnie Alcocer MD Surgeon General Surgery 03/23/[address] [place] [address] Danni Marcus, CHANDLER Personal Advocate & 01/09/1901/17 Liaison (PAL) Fernando, Ea Complex 04/23/19 Svetlana Osman, Pharmacist Pharmacotherapy 04/23/19 [facility] [address] [place] [address] Haylie Cheung, Pharmacist Pharmacist 09/11/19 [facility] [address] [place] [address] Opal, Assigned Sleep 05/08/20 03/27/21 Kendall Meehan MD Provider [address] [facility] 106 [place] [address] Erlinda Barber MD Assigned Neuroscience 05/08/20 01/26/[address] [facility] 295 [place] [address] Jaiden Holcomb Assigned PCP 05/24/20 MD Jayesh 909 [place] [address] documented as of this encounter
--- OUTSIDE RECORDS SUMMARY | 2022-06-15 12:47 | XMS_ITS | Encounter Summary ---
:1945 Author Organization [facility] Address [address] [place] [address] Care Team Providers Name Role Phone Chastity Montero MD Unavailable [phone] Johnnie Alcocer MD Unavailable Danni Marcus RN Unavailable Unavailable Mtm, Ea Complex Unavailable Unavailable Svetlana Osman [facility] Unavailable [phone] Haylie Cheung [facility] Unavailable [phone] Jaiden Holcomb MD Primary Care Provider [phone] Kendall Joseph MD Unavailable Erlinda Barber MD Unavailable Jaiden Holcomb MD Unavailable [phone] Encounter Details Date Type Department Care Team Description 09/25/2020 Orders Only [facility] Par oxysmal atrial fibrillation (H); [facility] Laboratory Hx Recurrent PE/DVT -- on Wa rfarin; [address] [place] Essential hypertension, benign; [address] Encounter for lipid screenin g for cardiovascular disease; [address] Hypoalbuminemia [place] [address] Social History Tobacco Use [...] with No / Unsure 09/25/2020 10:21 AM OWNER PROFESSIONAL ENGINEER someone who was confirmed or suspected to have Coronavirus / COVID-19? documented as of this encounter Plan of Treatment Upcoming Encounters Date Type Specialty Care Team Description 11/15/2022 Virtual Visit Pharm D Haylie Cheung, [facility] [address] [place] [address] (Wo rk) 11/15/2022 Virtual [place] [address] [place] [address] [place] [phone] (Wo rk) 03/03/2023 Virtual Visit Neurology Erlinda Barber MD 420 [facility] 295 [place] [address] (Wo rk) documented as of this encounter Procedures Procedure Name Priority Date/Time Associated Diagnosis Comme nts INR Routine 09/25/2020 10:25 Paroxysmal atrial Result s for this AM OWNER PROFESSIONAL ENGINEER fibrillation (H) procedure are in Hx Recurrent PE/DVT -- the r esults on Warfarin section. LIPID REFLEX TO Routine 09/25/2020 10:25 Essential Results for this DIRECT LDL PANEL AM OWNER PROFESSIONAL ENGINEER hypertension, b enign procedure are in Encounter for lipid the resu lts screening for section. cardiovascular disease COMPREHENSIVE Routine 09/25/2020 10:25 Hypoalbuminemia Results for this METABOLIC PANEL AM OWNER PROFESSIONAL ENGINEER Encounter for lipid christopher miller are in screening for the results cardiovascular disease secti on. documented in this encounter Results (ABNORMAL) Comprehensive metabolic panel (BMP + Alb, Alk Phos, ALT, AST, Total. Bili, TP) (09/25/2020 10:25 AM OWNER PROFESSIONAL ENGINEER) athologist Signature Sodium 138 133 - 144 09/25/2020 [facility] mmol/L 3:59 PM [facility] Potassium 4.0 3.4 - 5.3 09/25/2020 [facility] mmol/L 3:59 PM [facility] Chloride 108 94 - 109 09/25/2020 [facility] mmol/L 3:59 PM [facility] Carbon Dioxide 26 20 - 32 09/25/2020 [facility] mmol/L 4:23 PM [facility] Anion Gap 4 3 - 14 09/25/2020 [facility] mmol/L 4:23 PM [facility] Glucose 89 70 - 99 09/25/2020 [facility] mg/dL 4:23 PM [facility] Comment: Fasting specimen Urea Nitrogen 24 7 - 30 mg/dL 09/25/2020 4:[address] [facility] Creatinine 0.57 0.52 - 1.04 mg/dL 09/25/2020 4:23 PM [facility] GFR Estimate >90 >60 09/25/2020 4:23 PM [facility] mL/min/{1.73_m2} [place] [facility] [place] Comment: Non GFR Calc Starting 07/03/2018, serum creatinine ba sed estimated GFR (eGFR) will be calculated using the Chronic Kidney Dise [facility] Epidemiology Collaboration (CKD-EPI) equation. GFR Estimate If >90 >60 mL/min/{1.73_m2} 09/25/2020 4: 23 PM [facility] Black [facility] Comment: GFR Calc Starting 07/03/2018, serum creatinine ba sed estimated GFR (eGFR) will be calculated using the Chronic Kidney Dise [facility] Epidemiology Collaboration (CKD-EPI) equation. Calcium 9.0 8.5 - 10.1 09/25/2020 4:23 PM [facility] mg/dL [facility] Bilirubin Total 0.7 0.2 - 1.3 09/25/2020 4:45 PM [facility] mg/dL OWNER PROFESSIONAL ENGINEER [facility] Albumin 3.3 (L) 3.4 - 5.0 g/dL 09/25/2020 4:45 PM [facility] OWNER PROFESSIONAL ENGINEER [facility] Protein Total 7.7 6.8 - 8.8 g/dL 09/25/2020 4:45 PM [facility] Alkaline Phosphatase 86 40 - 150 U/L 09/25/2020 4:[address] [facility] ALT 24 0 - 50 U/L 09/25/2020 4:45 PM [facility] AST 20 0 - 45 U/L 09/25/2020 4:45 PM [facility] Specimen Anatomical Collection Method Collection Time Receive d Time (Source) Location / / Volume Laterality Blood specimen 09/25/2020 10:25 1 (specimen) AM OWNER PROFESSIONAL ENGINEER 10:26 AM OWNER PROFESSIONAL ENGINEER Jaiden Holcomb MD LAB - BLOOD ORDERABLES Performing Organization Address City/State/ZIP Code Phon e Number [facility] [address] [place] [address] Lipid panel reflex to direct LDL Fasting (09/25/2020 10:25 AM OWNER PROFESSIONAL ENGINEER) P athologist Signature Cholesterol 142 <200 mg/dL 09/25/2020 [facility] 4:45 PM [facility] Triglycerides 82 <150 mg/dL 09/25/2020 [facility] 4:45 PM [facility] Comment: Fasting specimen HDL Cholesterol 54 >49 mg/dL 09/25/2020 4:45 PM OWNER PROFESSIONAL ENGINEER [facility] LDL Cholesterol 72 <100 mg/dL 09/25/2020 4:45 PM OWNER PROFESSIONAL ENGINEER [facility] Calculated [facility] Comment: Desirable: <100 mg/dl Non HDL Cholesterol 88 <130 mg/dL 09/25/2020 4:45 PM OWNER PROFESSIONAL ENGINEER [facility] Specimen Anatomical Collection Method Collection Time Receive d Time (Source) Location / / Volume Laterality Blood specimen 09/25/2020 10:25 1 (specimen) AM OWNER PROFESSIONAL ENGINEER 10:26 AM OWNER PROFESSIONAL ENGINEER Jaiden Holcomb MD LAB - BLOOD ORDERABLES Performing Organization Address City/[facility]/ZIP Code Phon e Number [facility] [address] [place] [address] (ABNORMAL) INR (09/25/2020 10:25 AM OWNER PROFESSIONAL ENGINEER) athologist Signature INR 2.10 (H) 0.86 - 1.14 09/25/2020 [facility] 11:15 AM OWNER PROFESSIONAL ENGINEER [place] Comment: This test is intended for monitoring Cou madin therapy. ??Results are not accurate in patients with prolonged INR due to factor deficiency. 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 embolism Essential hypertension, benign Encounter for lipid screening for cardio vascular disease Hypoalbuminemia Other disorders of plasma protein metabo lism documented in this encounter Additional Health Concerns Assessment Noted Time PHQ-9 Depression Total Score: 4 04/12/2019 7:03 AM CDT documented as of this encounter Care Teams Staining Machine Operator Relationship Specialty Start Date End Date Jaiden Holcomb PCP - General Internal Medicine 02/13/2010/03 MD Jayesh [address] [facility] [place] [address] Chastity Montero MD Dermatology 09/23/14 420 [facility] 98 [place], [place] [address] Johnnie Alcocer MD Surgeon General Surgery 03/23/[address] [place] [address] Danni Marcus, RN Personal Advocate & 01/09/1901/17 Liaison (PAL) Fernando, Ea Complex 04/23/19 Svetlana Osman, Pharmacist Pharmacotherapy 04/23/19 [facility] [address] [place] [phone] Haylie Cheung, Pharmacist Pharmacist 09/11/19 [facility] [address] [place] [address] Opal, Assigned Sleep 05/08/20 03/27/21 Kendall Meehan MD Provider [address] [place] [address] [place] [address] Erlinda Barber MD Assigned Neuroscience 05/08/20 01/26/21 [address] [facility] 295 [place] [address] Jaiden Holcomb Assigned PCP 05/24/20 MD Jayesh 909 [place] [address] documented as of this encounter
--- OUTSIDE RECORDS SUMMARY | 2022-06-15 12:47 | XMS_ITS | Encounter Summary ---
:1945 Author Organization [facility] Address [address] [place] [address] Care Team Providers Name Role Phone Chastity Montero MD Unavailable [phone] Johnnie Alcocer MD Unavailable Danni Marcus RN Unavailable Unavailable Mtm, Ea Complex Unavailable Unavailable Svetlana Osman [facility] Unavailable [phone] Haylie Cheung [facility] Unavailable [phone] Jaiden Holcomb MD Primary Care Provider [phone] Kendall Joseph MD Unavailable Erlinda Barber MD Unavailable Jaiden Holcomb MD Unavailable [phone] Ruth John MD Unavailable Kajal Huggins MD Unavailable Patience Toussaint NP Unavailable Brook Sánchez MD Unavailable Yane Barraza MD Primary Care Provider Osmar Kidd MD Unavailable Erlinda Barber MD Unavailable Yane Barraza MD Primary Care Provider Lenore Alcala MD Unavailable Haylie Cheung [facility] Unavailable [phone] Gaye Patrick RN Unavailable Unavailable Michela, Kenya [facility] Unavailable [phone] Hayley German OD Unavailable [phone] Haylie Cheung [facility] Unavailable [phone] Reason for Visit Reason Onset Date Comments Refill Request 10/03/2020 ferrous sulfate (VIOLETTA OSUL) 325 (65 Fe) MG tablet Encounter Details Date Type Department Care Team Description 10/03/[address] [facility] Jaiden Holcombil l Request (ferrous Clinic Yarelis Mcconnell MD sulfate (FEROSUL) [address] (65 Fe) MG tablet) [place], [place] [address] [address] [place] [address] [phone] Social History Tobacco Use Types Packs/Day Years [...] Telephone Encounter - Jolanta Reddy RN - 10/05/2020 1:55 PM CDT Prescription approved per [facility] Refill Protocol. Jolanta Reddy RN Message handled by Nurse Triage. Telephone Encounter - Marimar Shelton RN - 10/05/2020 1:26 PM CDT Routing to SB5 team. Marimar Shelton RN [facility] -- Triage Nurse documented in this encounter Plan of Treatment Upcoming Encounters Date Type Specialty Care Team Description 11/15/2022 Virtual Visit Pharm D Haylie Cheung, [facility] [address] [facility] [place] [id number] (Lena max) 11/15/2022 Virtual Visit IM/Yane Mathias MD 6[address] [facility] [place] [phone] (Lena max) 03/03/2023 Virtual Visit Neurology Erlinda Barber MD 420 [facility] 295 [place], [place] [phone] (Wo rk) documented as of this encounter Visit Diagnoses Diagnosis Iron deficiency anemia, unspecified iron deficiency anemia type documented in this encounter Additional Health Concerns Assessment Noted Time PHQ-9 Depression Total Score: 4 04/12/2019 7:03 AM CDT documented as of this encounter Care Teams Fare Register Repairer Relationship Specialty Start Date End Date Jaiden Holcomb PCP - General Internal Medicine 02/13/2010/03 MD Jayesh [address] [place] [address] [place] [address] Yane Barraza MD PCP - General Internal Medicine 10/04/21 12/07/[address] [place] [address] [place], [place] [phone] Yane Barraza MD PCP - General Internal Medicine 12/08/[address] [place] [address] [place], [place] [phone] Chastity Montero MD Dermatology 09/23/14 MD 420 [facility] 98 [place] [address] Johnnie Alcocer MD Surgeon General Surgery 03/23/17 [address] [facility] 300 [place], [place] [phone] Danni Marcus, CHANDLER Personal Advocate & 01/09/1901/17 Liaison (PAL) [place], Ea Complex 04/23/19 Svetlana Osman, Pharmacist Pharmacotherapy 04/23/19 [facility] [address] [place], [place] [phone] Haylie Cheung, Pharmacist Pharmacist 09/11/19 [facility] [address] [place], [place] [phone] Opal, Assigned Sleep 05/08/20 03/27/21 Kendall Meehan MD Provider [address] [place] [address] Erlinda Barber MD Assigned Neuroscience 05/08/20 01/26/21 420 [facility] 295 [place] [address] Jaiden Holcomb Assigned PCP 05/24/20 MD Jayesh 909 [place] [address] Ruth John MD Assigned Infectious 01/29/21 07/03/21 [facility] INFECTIOUS Disease Provider [facility] [address] [place] [address] Kajal Huggins MD Assigned Neuroscience 01/29/21 10/23/21 [facility] Provider [address] [place] [address] Patience Toussaint NP Assigned Surgical 01/29/21 02/11/22 2945 [facility] Provider [address] [place] [address] Brook Sánchez MD Assigned Infectious 07/04/21 909 [facility] [place] [address] Osmar Kidd MD Assigned Sleep 09/26/[address] [place] [address] Erlinda Barber MD Assigned Neuroscience 10/24/21 [address] [facility] [address] [place] [address] Lenore Alcala MD Assigned Heart and 12/18/21 01/21/[address] [place] Vascular Provider [address] [place] [address] Haylie Cheung, Assigned MTM 01/08/22 [facility] Pharmacist [address] [facility] [place] [address] Gaye Patrick, RN Personal Advocate & 01/18/22 Liaison (PAL) Kenya Abernathy APRN Assigned Heart and 01/22/22 [facility] Vascular Provider [address] [place], [place] [address] Hayley German, Assigned Surgical 02/12/22 [place] Provider 3305 [facility] [place] [phone] Haylie Cheung, Assigned [place] 04/13/22 [facility] Pharmacist [address] [place] [address] [place], [place] [phone] documented as of this encounter
--- OUTSIDE RECORDS SUMMARY | 2022-06-15 12:47 | XMS_ITS | Encounter Summary ---
:1945 Author Organization [place] Address [address] [place] [address] Care Team Providers Name Role Phone Chastity Montero MD Unavailable [phone] Johnnie Alcocer MD Unavailable Danni Marcus RN Unavailable Unavailable Mtm, Ea Complex Unavailable Unavailable Svetlana Osman [facility] Unavailable [phone] Haylie Cheung [facility] Unavailable [phone] Jaiden Holcomb MD Primary Care Provider [phone] Kendall Joseph MD Unavailable Erlinda Barber MD Unavailable Jaiden Holcomb MD Unavailable [phone] Encounter Details Date Type Department Care Team Description 10/01/2020 Travel Social History Tobacco Use Types Packs/Day [...] Description 11/15/2022 Virtual Visit Pharm Haylie Gonzalez, [facility] [address] [employer] [place] [id number] (Wo rk) 11/15/2022 Virtual Visit IM/Yane Mathias MD [address] [place] [address] [place] [id number] (Wo rk) 03/03/2023 Virtual Visit Neurology Erlinda Barber MD [address] [place] [address] 295 [place], [place] 2[address]85 (Wo rk) documented as of this encounter Visit Diagnoses Not on filedocumented in this encounter Additional Health Concerns Assessment Noted Time PHQ-9 Depression Total Score: 4 04/12/2019 7:03 AM CDT documented as of this encounter Care Teams Inspector Type Relationship Specialty Start Date End Date Jaiden Holcomb PCP - General Internal Medicine 02/13/2010/03 MD Jayesh [address] [place] [address] [place] [id number] Chastity Montero MD Dermatology 09/23/[address] [place] [address] 98 [place], [place] 524[address] Johnnie Alcocer MD Surgeon General Surgery 03/23/[address] 300 [place], [place] [address] Danni Marcus, RN Personal Advocate & 01/09/1901/17 Liaison (PAL) [place], Ea Complex 04/23/19 Svetlana Osman, Pharmacist Pharmacotherapy 04/23/19 [facility] [address] [place], [place] [id number] Haylie Cheung, Pharmacist Pharmacist 09/11/19 [place] [address] [place] [address] Opal, Assigned Sleep 05/08/20 03/27/21 Kendall Meehan MD Provider [address] [place] [address] Erlinda Barber MD Assigned Neuroscience 05/08/20 01/26/21 [address] [facility] 295 [place] [address] Jaiden Holcomb Assigned PCP 05/24/20 MD Jayesh 909 [place] [address] documented as of this encounter
--- OUTSIDE RECORDS SUMMARY | 2022-06-15 12:47 | XMS_ITS | Encounter Summary ---
:1945 Author Organization [place] Address [address] [place] [address] Care Team Providers Name Role Phone Chastity Montero MD Unavailable [phone] Johnnie Alcocer MD Unavailable Danni Marcus RN Unavailable Unavailable Mtm, Ea Complex Unavailable Unavailable Svetlana Osman [facility] Unavailable [phone] Haylie Cheung [facility] Unavailable [phone] Jaiden Holcomb MD Primary Care Provider [phone] Kendall Joseph MD Unavailable Erlinda Barber MD Unavailable Jaiden Holcomb MD Unavailable [phone] Encounter Details Date Type Department Care Team Description 10/23/2020 Anticoagulation Therapy [facility], 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 embolism; Visit Clinic Yarelis Longo RN Paroxysmal atrial fibrillati on (H); [address] [facility] current use of 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 [facility] [address] [place] [address] Social History [...] 05/03/2021 organizations such as yazidi groups, unions, [employer] or athletic groups, or school groups? How [...] encounter Progress Notes Qing Guy RN - 10/23/2020 11:39 AM CDT ANTICOAGULATION FOLLOW-UP Patient Name: Charlette Brush Date: 10/23/2020 Contact Type: Telephone SUBJECTIVE: Patient Findings Comments: The patient was assessed for diet, medication, missed or extra doses, bruising or bleeding, with no problem findings. No questions or concerns. Reviewed previous warfarin dosing with patient. She took warfarin as instructed. INR is therapeutic today. Patient will continue same maintenance dose. Follow up in 6 weeks. Clinical Outcomes Comments: The patient was assessed for diet, medication, missed or extra doses, bruising or bleeding, with no problem findings. No questions or concerns. Reviewed previous warfarin dosing with patient. She took warfarin as instructed. INR is therapeutic today. Patient will continue same maintenance dose. Follow up in 6 weeks. 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 Anticoagulation Care Providers Provider Role Specialty Phone number Galdino Valdez MD Referring Family Medicine [phone] Lucero Stevenson MD Responsible Internal Medicine [phone] See the Encounter Report to view Anticoagulation Flowsheet and Dosing Calendar (Go to Encounters tabin chart review, and find the Anticoagulation Therapy Visit) Qing Guy RN documented in this encounter Plan of Treatment Upcoming Encounters Date Type Specialty Care Team Description 11/15/2022 Virtual Visit Pharm Haylie Gonzalez, [facility] [address] [address] [place] [id number] (Lena max) 11/15/2022 Virtual [place] [address] [place] [address] [place] [id number] (Lena max) 03/03/2023 Virtual Visit Neurology Erlinda Barber MD [address] [facility] 295 [place] [address] (Lena max) documented as of this encounter Visit Diagnoses Diagnosis 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 embolism Paroxysmal atrial fibrillation (H) Atrial fibrillation [facility] current use of anticoagulant t herapy documented in this encounter Additional Health Concerns Assessment Noted Time PHQ-9 Depression Total Score: 4 04/12/2019 7:03 AM CDT documented as of this encounter Care Teams Document Reviewer Relationship Specialty Start Date End Date Jaiden Holcomb PCP - General Internal Medicine 02/13/2010/03 MD Jayesh [address] [place], [place] [phone] Chastity Montero MD Dermatology 09/23/14 [address] [facility] 98 [place], [place] [phone] Johnnie Alcocer MD Surgeon General Surgery 03/23/17 [address] [facility] 300 [place], [place] [phone] Danni Marcus, CHANDLER Personal Advocate & 01/09/1901/17 Liaison (PAL) Fernando, Ea Complex 04/23/19 Svetlana Osman, Pharmacist Pharmacotherapy 04/23/19 [facility] [address] [place] [address] Haylie Cheung, Pharmacist Pharmacist 09/11/19 [facility] [address] [place], [place] [phone] Opal, Assigned Sleep 05/08/20 03/27/21 Kendall Meehan MD Provider [address] [place] [place], [place] [phone] Erlinda Barber MD Assigned Neuroscience 05/08/20 01/26/21 [address] [facility] 295 [place] [address] Jaiden Holcomb Assigned PCP 05/24/20 MD Jayesh 909 [place] [address] documented as of this encounter
--- OUTSIDE RECORDS SUMMARY | 2022-06-15 12:47 | XMS_ITS | Encounter Summary ---
:1945 Author Organization [place] Address [address] [place] [address] Care Team Providers Name Role Phone Chastity Montero MD Unavailable [phone] Johnnie Alcocer MD Unavailable Danni Marcus RN Unavailable Unavailable Mtm, Ea Complex Unavailable Unavailable Svetlana Osman [facility] Unavailable [phone] Haylie Cheung [facility] Unavailable [phone] Jaiden Holcomb MD Primary Care Provider [phone] Kendall Joseph MD Unavailable Erlinda Barber MD Unavailable Jaiden Holcomb MD Unavailable [phone] Reason for Visit Reason Comments Medication Refill Encounter Details Date Type Department Care Team Description 10/05/2020 Refill [facility] Wilbur Holcomb Medication Refill Yarelis Mcconnell MD [address] [address] [address] [place] [address] [phone] Social History Tobacco Use Types Packs/Day Years [...] Visit Pharm D Haylie Cheung, [facility] [address] [facility] [place] [address] (Wo rk) 11/15/2022 Virtual Visit IM/Peds Yane Barraza MD [address] [facility] [place] [address] (Wo rk) 03/03/2023 Virtual Visit Neurology Erlinda Barber MD [address] [facility] 295 [place], [place] [address] (Wo rk) documented as of this encounter Visit Diagnoses Diagnosis Essential hypertension, benign documented in this encounter Additional Health Concerns Assessment Noted Time PHQ-9 Depression Total Score: 4 04/12/2019 7:03 AM CDT documented as of this encounter Care Teams Rotary Filter Operator Relationship Specialty Start Date End Date Jaiden Holcomb PCP - General Internal Medicine 02/13/2010/03 MD Jayesh [address] [facility] [address] [place], [place] [phone] Chastity Montero MD Dermatology 09/23/14 [address] [facility] 98 [place], [place] [address] Johnnie Alcocer MD Surgeon General Surgery 03/23/[address] [place], [place] [address] Danni Marcus, CHANDLER Personal Advocate & 01/09/1901/17 Liaison (PAL) Fernando, Ea Complex 04/23/19 Svetlana Osman, Pharmacist Pharmacotherapy 04/23/19 [facility] [address] [place], [place] [phone] Haylie Cheung, Pharmacist Pharmacist 09/11/19 [facility] [address] [place], [place] [phone] Opal, Assigned Sleep 05/08/20 03/27/21 Kendall Meehan MD Provider [address] [place], [place] [address] Erlinda Barber MD Assigned Neuroscience 05/08/20 01/26/[address] [place] [address] 295 Provider [place], [place] [address] Jaiden Holcomb Assigned PCP 05/24/20 MD Jayesh 909 [place] [address] documented as of this encounter
--- OUTSIDE RECORDS SUMMARY | 2022-06-15 12:48 | XMS_ITS | Encounter Summary ---
:1945 Author Organization [place] Address [address] [place] [address] Care Team Providers Name Role Phone Chastity Montero MD Unavailable [phone] Johnnie Alcocer MD Unavailable Danni Marcus RN Unavailable Unavailable Mtm, Ea Complex Unavailable Unavailable Svetlana Osman [facility] Unavailable [phone] Haylie Cheung [facility] Unavailable [phone] Jaiden Holcomb MD Primary Care Provider [phone] Kendall Joseph MD Unavailable Erlinda Barber MD Unavailable Jaiden Holcomb MD Unavailable [phone] Reason for Visit Reason Comments Other supplies Encounter Details Date Type Department Care Team Description 09/03/2020 Communication - [facility] Kajal Huggins Ot (supplies) [facility] MD Amari [place] [address] [place], [place] [address]A Holcomb [address] [place] [id number] Social History Tobacco Use Types Packs/Day Years [...] this encounter Miscellaneous Notes Telephone Encounter - Patience Martinez, RN - 09/03/2020 1:35 PM CST Spoke with Charlette and nurse Cage. Patient is paying for supplies out of pocket. Ok to use non-bordered foam per Dr. Huggins. Dr. Huggins's letter for Medicare appeal faxed to [facility] this morning. IFIED GENETIC COUNSELOR Telephone Encounter - Yanet Gutiérrez - 09/03/2020 12:50 PM CST Patient is calling needing wound care supplies, she is also needing an appeal though medicare for cares. She states that she is no longer able to get supplies due to this medicare change. She has askedthem to fax to [phone], (last week she gave them our VM number to fax papers too ) Billies choice is not medicare approved, patient is requesting we contact her on her cell. Patient is confused about how her cares are being addressed, please contact her IFIED GENETIC COUNSELOR documented in this encounter Plan of Treatment Upcoming Encounters Date Type Specialty Care Team Description 11/15/2022 Virtual Visit Pharm Haylie Gonzalez, [facility] [address] [facility] [address] [place] [phone] (Wo rk) 11/15/2022 Virtual Visit IM/PedYane Muir MD [address] [place] [address] [place] [phone] (Wo rk) 03/03/2023 Virtual Visit Neurology Erlinda Barber MD [address] [place] [address] 295 [place], [place] [address] (Wo rk) documented as of this encounter Visit Diagnoses Not on filedocumented in this encounter Additional Health Concerns Assessment Noted Time PHQ-9 Depression Total Score: 4 04/12/2019 7:03 AM CDT documented as of this encounter Care Teams Autobody Technician Relationship Specialty Start Date End Date Jaiden Holcomb PCP - General Internal Medicine 02/13/2010/03 MD Jayesh [address] [place] [address] [place] [address] Chastity Montero MD Dermatology 09/23/[address] [place] [address] 98 [place], [place] [address] Johnnie Alcocer MD Surgeon General Surgery 03/23/[address] [place], [place] [address] Danni Marcus, CHANDLER Personal Advocate & 01/09/1901/17 Liaison (PAL) Fernando, Ea Complex 04/23/19 Svetlana Osman, Pharmacist Pharmacotherapy 04/23/19 [facility] [address] [place] [phone] Haylie Cheung, Pharmacist Pharmacist 09/11/19 [facility] [address] [facility] [place] [phone] Opal, Assigned Sleep 05/08/20 03/27/21 Kendall Meehan MD Provider [address] [place], [place] [address] Erlinda Barber MD Assigned Neuroscience 05/08/20 01/26/21 [address] [facility] 295 [place] [address] Jaiden Holcomb Assigned PCP 05/24/20 MD Jayesh 909 [place], [place] [address] documented as of this encounter
--- OUTSIDE RECORDS SUMMARY | 2022-06-15 12:48 | XMS_ITS | Encounter Summary ---
:1945 Author Organization [place] Address [address] [place] [address] Care Team Providers Name Role Phone Chastity Montero MD Unavailable [phone] Johnnie Alcocer MD Unavailable Danni Marcus RN Unavailable Unavailable Mtm, Ea Complex Unavailable Unavailable Svetlana Osman [facility] Unavailable [phone] Haylie Cheung [facility] Unavailable [phone] Jaiden Holcomb MD Primary Care Provider [phone] Kendall Joseph MD Unavailable Erlinda Barber MD Unavailable Jaiden Holcomb MD Unavailable Reason for Visit Reason Onset Date Comments Home Care/Hospice 09/01/2020 Verbal order Encounter Details Date Type Department Care Team Description 09/01/2020 Telephone [facility] Jaiden Holcomb Home Care/Hospice Clinic Yarelis Mcconnell MD (Verbal order) [address] [place] [address] [address] [address] [place] [address] [phone] Social History Tobacco Use Types Packs/Day Years [...] More than 4 times per year 05/03/2021 anabaptist services? Do you belong to any clubs [...] Telephone Encounter - Danni Marcus, RN - 09/01/2020 3:19 PM CST Verbal approval for additional RN visit for wound care today given per protocol. Juanita will advise us of the appeal outcome with Medicare. No further questions. Will call back if any other questions or concerns. Ashli Marcus RN UTER SYSTEMS ARCHITECT Telephone Encounter - Gisele Reed - 09/01/2020 2:33 PM CST Juanita nurse with [facility] at 2:03pm Update: Planning to discharge patient Patient has filed and appeal with Medicare Requesting verbal order for an additional visit for today for wound care Patient has not received a response yet on her appeal if it's been approved or denied. Callback, Thank you Luis E Carreon Training Engineer - Complex Care Team UTER SYSTEMS ARCHITECT documented in this encounter Plan of Treatment Upcoming Encounters Date Type Specialty Care Team Description 11/15/2022 Virtual Visit Pharm Haylie Gonzalez, [facility] [address] [place] [address] (Wo rk) 11/15/2022 Virtual Visit IM/Peds Yane Barraza MD [address] [place] [address] [place] [address] (Wo rk) 03/03/2023 Virtual Visit Neurology Erlinda Barber MD [address] [place] [address] 295 [place], [place] [address] (Wo rk) documented as of this encounter Visit Diagnoses Not on filedocumented in this encounter Additional Health Concerns Assessment Noted Time PHQ-9 Depression Total Score: 4 04/12/2019 7:03 AM CDT documented as of this encounter Care Teams Master Data Analyst Relationship Specialty Start Date End Date Jaiden Holcomb PCP - General Internal Medicine 02/13/2010/03 MD Jayesh [address] [place] [address] [place] [address] Chastity Montero MD Dermatology 09/23/[address] [place] [address] 98 [place], [place] [address] Johnnie Alcocer MD Surgeon General Surgery 03/23/17 [address] [facility] 300 [place], [place] [address] Danni Marcus, CHANDLER Personal Advocate & 01/09/1901/17 Liaison (PAL) Fernando, Ea Complex 04/23/19 Svetlana Osman, Pharmacist Pharmacotherapy 04/23/19 [facility] [address] [place] [address] Haylie Cheung, Pharmacist Pharmacist 09/11/19 [facility] [address] [place] [address] Opal, Assigned Sleep 05/08/20 03/27/21 Kendall Meehan MD Provider [address] [place] [address] Erlinda Barber MD Assigned Neuroscience 05/08/20 01/26/21 420 [facility] 295 [place] [address] Jaiden Holcomb Assigned PCP 05/24/20 MD Jayesh 909 [place] [address] documented as of this encounter
--- OUTSIDE RECORDS SUMMARY | 2022-06-15 12:48 | XMS_ITS | Encounter Summary ---
:1945 Author Organization [place] Address [address] [place] [address] Care Team Providers Name Role Phone Chastity Montero MD Unavailable [phone] Johnnie Alcocer MD Unavailable Danni Marcus RN Unavailable Unavailable Mtm, Ea Complex Unavailable Unavailable Svetlana Osman [facility] Unavailable [phone] Haylie Cheung [facility] Unavailable [phone] Jaiden Holcomb MD Primary Care Provider [phone] Kendall Joseph MD Unavailable Erlidna Barber MD Unavailable Jaiden Holcomb MD Unavailable [phone] Encounter Details Date Type Department Care Team Description 09/01/2020 [facility] MD Mahamed Fitzpatrick [address] [facility] [address] [place] [address] [place] [address] [place] [phone] (Wo rk) [address] [phone] Social History Tobacco Use Types Packs/Day Years [...] documented as of this encounter Miscellaneous Notes Letter - Historical Provider - 01/01/2021 3:15 AM CDT Letter by Kajal Huggins MD at Author: Kajal Huggins MD Service: -- Author Type: -- Filed: Encounter Date: 09/01/2020 Status: (Other) To: Dorian [address] , [address] [place] [address] Re: Charlette Brush Birthdate: 1945 To Whom It May Concern: I have been seeing Ms. Charlette Brush as a patient since 12/12/2019. She was transferred to me from another caregiver as she was not getting significant benefit. She has a history of left pelvic osteomyelitis with chronic ulceration after being diagnosed with necrotizing fasciitis complicated by sepsis. She was considered for flap reconstruction by plastic surgery, but this was felt not to be an option at this time. With changes in her wound care we have been able to get some initial healing which was previously not seen. She had improved about 27% in a month with decreased depth of the wound. Her care was coordinated with infectious disease who oversaw long course of antibiotics. As she is unable todo the dressing changes for this buttock area due to its location, in my medical opinion it is medically necessary for her to continue to get the home care services. I am very concerned that without this and not giving her the option for continued healing her health is put at significant risk. I wouldlike to give her a bit more time with these wound care changes and aggressive infection treatment tosee if she continues to improve. However, without the home health care this will not be possible. We are following her closely. I hope this provides her with the information you require. If any further information is required please feel free to contact me. Sincerely, Kajal Huggins MD, Founding Diplomate ABW, FACCWS, FAAPMR Timber Treating Tank Operator Department of Rehabilitation Medicine-Wound Fellowship Director Adjunct Timber Treating Tank Operator Department [facility] Supervisor Record Press Wound Care and Lymphedema [facility] [phone] ATION COURSES SALES REPRESENTATIVE documented in this encounter Plan of Treatment Upcoming Encounters Date Type Specialty Care Team Description 11/15/2022 Virtual Visit Pharm D Haylie Cheung, [facility] [address] [place] [address] (Lena max) 11/15/2022 Virtual Visit [place] [address] [place] [address] [place] [phone] (Lena max) 03/03/2023 Virtual Visit Neurology Erlinda Barber MD 420 [facility] 295 [place] [address] (Lena max) documented as of this encounter Visit Diagnoses Not on filedocumented in this encounter Additional Health Concerns Assessment Noted Time PHQ-9 Depression Total Score: 4 04/12/2019 7:03 AM CDT documented as of this encounter Care Teams Technician Test Systems Relationship Specialty Start Date End Date Jaiden Holcomb PCP - General Internal Medicine 02/13/2010/03 MD Jayesh [address] [place], [place] [phone] Chastity Montero MD Dermatology 09/23/14 420 [facility] 98 [place], [place] [address] Johnnie Alcocer MD Surgeon General Surgery 03/23/[address] [place], [place] [address] Danni Marcus, CHANDLER Personal Advocate & 01/09/1901/17 Liaison (PAL) Fernando Ea Complex 04/23/19 Svetlana Osman, Pharmacist Pharmacotherapy 04/23/19 [facility] [address] [place], [place] [phone] Haylie Cheung, Pharmacist Pharmacist 09/11/19 [facility] [address] [place], [place] [phone] Opal, Assigned Sleep 05/08/20 03/27/21 Kendall Meehan MD Provider [address] [place], [place] [address] Erlinda Barber MD Assigned Neuroscience 05/08/20 01/26/21 420 [facility] 295 Provider [place], [place] [phone] Jaiden Holcomb Assigned PCP 05/24/20 MD Jayesh 909 [place] [address] documented as of this encounter
--- OUTSIDE RECORDS SUMMARY | 2022-06-15 12:48 | XMS_ITS | Encounter Summary ---
:1945 Author Organization [place] Address [address] [place] [address]. [place] [address] Care Team Providers Name Role Phone Chastity Montero MD Unavailable [phone] Johnnie Alcocer MD Unavailable Danni Marcus RN Unavailable Unavailable Mtm, Ea Complex Unavailable Unavailable Svetlana Osman [facility] Unavailable [phone] Haylie Cheung [facility] Unavailable [phone] Jaiden Holcomb MD Primary Care Provider [phone] Kendall Joseph MD Unavailable Erlinda Barber MD Unavailable Jaiden Holcomb MD Unavailable [phone] Encounter Details Date Type Department Care Team Description 09/03/2020 Medical Correspondence [facility] Scan, EPISODE DETAIL Health Info Mgmt Non-Provider REPORT TUSHAR PARKER [facility] [address] [place] [address] Social History Tobacco Use Types Packs/Day [...] 05/03/2021 organizations such as synagogue groups, unions, fraIncuity Software or athletic groups, or school groups? How [...] Haylie Gonzalez, [facility] [address] [facility] [place] [id number] (Wo rk) 11/15/2022 Virtual [place] [address] [place] [address] [place] [phone] (Wo rk) 03/03/2023 Virtual Visit Neurology Erlinda Barber MD [address] [place] [address] 295 [place], [place] 80[address]85 (Wo rk) documented as of this encounter Visit Diagnoses Not on filedocumented in this encounter Additional Health Concerns Assessment Noted Time PHQ-9 Depression Total Score: 4 04/12/2019 7:03 AM CDT documented as of this encounter Care Teams Can Bander Operator Relationship Specialty Start Date End Date Jaiden Holcomb PCP - General Internal Medicine 02/13/2010/03 MD Jayesh [address] [place] [address] [place] [phone] Chastity Montero MD Dermatology 09/23/[address] [place] [address] 98 [place], [place] [address] Johnnie Alcocer MD Surgeon General Surgery 03/23/[address] 300 [place], [place] [id number] Danni Marcus, RN Personal Advocate & 01/09/1901/17 Liaison (PAL) Mtkinsey, Ea Complex 04/23/19 Svetlana Osman, Pharmacist Pharmacotherapy 04/23/19 [facility] [address] [place], [place] [phone] Haylie Cheung, Pharmacist Pharmacist 09/11/19 [place] [address] [place] [address] Opal, Assigned Sleep 05/08/20 03/27/21 Kendall Meehan MD Provider [address] [place] [address] Erlinda Barber MD Assigned Neuroscience 05/08/20 01/26/21 [address] [facility] 295 [place] [address] Jaiden Holcomb Assigned PCP 05/24/20 MD Jayesh 909 [place] [address] documented as of this encounter
--- OUTSIDE RECORDS SUMMARY | 2022-06-15 12:48 | XMS_ITS | Encounter Summary ---
:1945 Author Organization [place] Address [address] [place] [address] Care Team Providers Name Role Phone Chastity Montero MD Unavailable [phone] Johnnie Alcocer MD Unavailable Danni Marcus RN Unavailable Unavailable Mtm, Ea Complex Unavailable Unavailable Svetlana sOman [facility] Unavailable [phone] Haylie Cheung [facility] Unavailable [phone] Jaiden Holcomb MD Primary Care Provider [phone] Kendall Joseph MD Unavailable Erlinda Barber MD Unavailable Jaiden Holcomb MD Unavailable [phone] Ruth John MD Unavailable Kajal Huggins MD Unavailable Patience Toussaint NP Unavailable Encounter Details Date Type Department Care Team Description 09/03/2020 Records - [facility] CONVERSION Scan, Non-Provider [...] or relatives? How often do you attend spiritism or More than 4 times per year 05/03/2021 jain services? Do you belong to any clubs or No 05/03/2021 organizations such as spiritism groups, unions, fraternal or athletic groups, or [...] Cheung, [facility] [address] [facility] [place] [id number] (Lena max) 11/15/2022 Virtual Visit [place] [address] [place] [address] [place] [address] (Lena max) 03/03/2023 Virtual Visit Neurology Erlinda Barber MD 420 [facility] 295 [place] [address] (Wo winter) documented as of this encounter Visit Diagnoses Not on filedocumented in this encounter Additional Health Concerns Assessment Noted Time PHQ-9 Depression Total Score: 4 04/12/2019 7:03 AM CDT documented as of this encounter Care Teams Ship'S Electronic Warfare Officer Relationship Specialty Start Date End Date Jaiden Holcomb PCP - General Internal Medicine 02/13/2010/03 MD Jayesh [address] [place] [address] [place] [phone] Chastity Montero MD Dermatology 09/23/14 420 [facility] 98 [place], [place] [address] Johnnie Alcocer MD Surgeon General Surgery 03/23/[address] 300 [place], [place] [address] Danni Marcus, CHANDLER Personal Advocate & 01/09/1901/17 Liaison (PAL) Fernando, Ea Complex 04/23/19 Svetlana Osman, Pharmacist Pharmacotherapy 04/23/19 [facility] [address] [place], [place] [phone] Haylie Cheung, Pharmacist Pharmacist 09/11/19 [facility] [address] [facility] [address] [place] [phone] Opal, Assigned Sleep 05/08/20 03/27/21 Kendall Meehan MD Provider [address] [facility] 106 [place], [place] [address] Erlinda Barber MD Assigned Neuroscience 05/08/20 01/26/21 420 [facility] 295 Provider [place], [place] [address] Jaiden Holcomb Assigned PCP 05/24/20 MD Jayesh 909 [place], [place] [address] Ruth John MD Assigned Infectious 01/29/21 07/03/21 [facility]3] INFECTIOUS Disease Provider [facility] [address] [facility] [address] [place], [place] [id number] Kajal Huggins MD Assigned Neuroscience 01/29/21 10/23/[address] [place] [address] [address] Provider [address] [place] [address] Patience Toussaint NP Assigned Surgical 01/29/21 02/11/[address] [place] [address] Provider [address] [place] [address] documented as of this encounter
--- OUTSIDE RECORDS SUMMARY | 2022-06-15 12:48 | XMS_ITS | Encounter Summary ---
:1945 Author Organization [place] Address [address] [place] [address] Care Team Providers Name Role Phone Chastity Montero MD Unavailable [phone] Johnnie Alcocer MD Unavailable Danni Marcus RN Unavailable Unavailable Mtm, Ea Complex Unavailable Unavailable Svetlana Osman [facility] Unavailable [phone] Haylie Cheung [facility] Unavailable [phone] Jaiden Holcomb MD Primary Care Provider [phone] Kendall Joseph MD Unavailable Erlinda Barber MD Unavailable Jaiden Holcomb MD Unavailable [phone] Encounter Details Date Type Department Care Team Description 09/03/2020 Records - [facility] Emilie Gutiérrez [facility] [address] [place] [address] Social History Tobacco Use Types Packs/Day [...] 05/03/2021 organizations such as sabianist groups, unions, fraAdial Pharmaceuticals or athletic groups, or school groups? How [...] this encounter Miscellaneous Notes Telephone Encounter - Yanet Gutiérrez - 09/03/2020 10:55 AM CST . 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 CONTROL MICROBIOLOGY SUPERVISOR documented in this encounter Plan of Treatment Upcoming Encounters Date Type Specialty Care Team Description 11/15/2022 Virtual Visit Pharm D Haylie Cheung, [facility] [address] [place] [address] (Wo rk) 11/15/2022 Virtual Visit [place] [address] [place] [address] [place] [phone] (Wo rk) 03/03/2023 Virtual Visit Neurology Erlinda Barber MD 420 [facility] 295 [place], [place] [address] (Wo rk) documented as of this encounter Visit Diagnoses Not on filedocumented in this encounter Additional Health Concerns Assessment Noted Time PHQ-9 Depression Total Score: 4 04/12/2019 7:03 AM CDT documented as of this encounter Care Teams Cream Dumper Relationship Specialty Start Date End Date Jaiden Holcomb PCP - General Internal Medicine 02/13/2010/03 MD Jayesh [address] [facility] [address] [place], [place] [phone] Chastity Montero MD Dermatology 09/23/14 [place] [address] [place] [address] [facility] [address] [place], [place] [address] Johnnie Alcocer MD Surgeon General Surgery 03/23/17 [address] [facility] 300 [place] [address] Danni Marcus, CHANDLER Personal Advocate & 01/09/1901/17 Liaison (PAL) Fernando, Ea Complex 04/23/19 Svetlana Osman, Pharmacist Pharmacotherapy 04/23/19 [facility] [address] [place], [place] [phone] Haylie Cheung, Pharmacist Pharmacist 09/11/19 [facility] [address] [place], [place] [phone] Opal, Assigned Sleep 05/08/20 03/27/21 Kendall Meehan MD Provider [address] [place], [place] [address] Erlinda Barber MD Assigned Neuroscience 05/08/20 01/26/21 [address] [place] [address] [facility] [address] Provider [place], [place] [address] Jaiden Holcomb Assigned PCP 05/24/20 MD Jayesh 909 [place], [place] [address] documented as of this encounter
--- OUTSIDE RECORDS SUMMARY | 2022-06-15 12:48 | XMS_ITS | Encounter Summary ---
:1945 Author Organization [place] Address [address] [place] [address] Care Team Providers Name Role Phone Chastity Montero MD Unavailable [phone] Johnnie Alcocer MD Unavailable Danni Marcus RN Unavailable Unavailable Mtm, Ea Complex Unavailable Unavailable Svetlana Osman [facility] Unavailable [phone] Haylie Cheung [facility] Unavailable [phone] Jaiden Holcomb MD Primary Care Provider Kendall Joseph MD Unavailable Erlinda Barber MD Unavailable Jaiden Holcomb MD Unavailable [phone] Ruth John MD Unavailable Kajal Huggins MD Unavailable Patience Toussaint NP Unavailable Encounter Details Date Type Department Care Team Description 08/24/2020 Records - [facility] CONVERSION Scan, Non-Provider [...] [facility] 14[address] [facility] [place] [phone] (Lena max) 11/15/2022 Virtual Visit [place] [address] [place] [address] [place] [address] (Lena max) 03/03/2023 Virtual Visit Neurology Erlinda Barber MD 420 [facility] 295 [place] [address] (Wo winter) documented as of this encounter Visit Diagnoses Not on filedocumented in this encounter Additional Health Concerns Assessment Noted Time PHQ-9 Depression Total Score: 4 04/12/2019 7:03 AM CDT documented as of this encounter Care Teams Automation Mechanic Relationship Specialty Start Date End Date Jaiden Holcomb PCP - General Internal Medicine 02/13/2010/03 MD Jayesh [address] [place] [address] [place] [phone] Chastity Montero MD Dermatology 09/23/14 420 [facility] 98 [place], [place] [address] Johnnie Alcocer MD Surgeon General Surgery 03/23/[address] 300 [place], [place] [address] Danni Marcus, CHANDLER Personal Advocate & 01/09/1901/17 Liaison (PAL) Fernando, Ea Complex 04/23/19 Svetlana Osman, Pharmacist Pharmacotherapy 04/23/19 [facility] [address] [place], [place] [phone] Haylie Cheung, Pharmacist Pharmacist 09/11/19 [facility] [address] [facility] [address] [place], [place] [phone] Opal, Assigned Sleep 05/08/20 03/27/21 Kendall Meehan MD Provider [address] [facility] 106 [place], [place] [address] Erlinda Barber MD Assigned Neuroscience 05/08/20 01/26/21 420 [facility] 295 Provider [place], [place] [address] Jaiden Holcomb Assigned PCP 05/24/20 MD Jayesh 909 [place], [place] [address] Ruth John MD Assigned Infectious 01/29/21 07/03/21 [facility] INFECTIOUS Disease Provider [facility] [address] [facility] [address] [place], [place] [phone] Kajal Huggins MD Assigned Neuroscience 01/29/21 10/23/[address] [place] [address] [address] [place] [address] Patience Toussaint NP Assigned Surgical 01/29/21 02/11/[address] [place] [address] Provider [address] [place] [address] documented as of this encounter
--- OUTSIDE RECORDS SUMMARY | 2022-06-15 12:48 | XMS_ITS | Encounter Summary ---
:1945 Author Organization [place] Address [address] [place] [address] Care Team Providers Name Role Phone Chastity Montero MD Unavailable [phone] Johnnie Alcocer MD Unavailable Danni Marcus RN Unavailable Unavailable Mtm, Ea Complex Unavailable Unavailable Svetlana Osman [facility] Unavailable [phone] Haylie Cheung [facility] Unavailable [phone] Jaiden Holcomb MD Primary Care Provider [phone] Kendall Joseph MD Unavailable Erlinda Barber MD Unavailable Jaiden Holcomb MD Unavailable Reason for Visit Reason Comments Other order update Encounter Details Date Type Department Care Team Description 09/07/2020 [facility] Kajal Huggins Ot ([facility] MD Amari update) [place] [id number] [place] [address] [facility] [place] [address] Social History Tobacco Use Types Packs/Day [...] or relatives? How often do you attend mu-ism or More than 4 times per year 05/03/2021 mandaen services? Do you belong to any clubs or No 05/03/2021 organizations such as mu-ism groups, unions, fraternal or athletic groups, or [...] encounter Miscellaneous Notes Telephone Encounter - Patience Martinez RN - 09/07/2020 3:43 PM CST Spoke with [facility] nurse - patient one her appeal and they will resume services for wound care. They are requesting an updated [id number] order from Patience Toussaint when patient comes in for3 appointment. Patient still has services with [facility] twice per day. RCYCLE DELIVERER Telephone Encounter - Patience Martinez RN - 09/07/2020 12:44 PM CST Left message for Charlette to call back. RCYCLE DELIVERER Telephone Encounter - Historical Provider - 09/07/2020 11:51 AM CST Fozia stated they are in need for updated home care orders. Please call her back to further discuss this matter. RCYCLE DELIVERER documented in this encounter Plan of Treatment Upcoming Encounters Date Type Specialty Care Team Description 11/15/2022 Virtual Visit Haylie Wakefield, [facility] [address] [facility] [address] [place] [phone] (Wo rk) 11/15/2022 Virtual Visit IM/Peds Yane Barraza MD [address] [place] [address] [place] [phone] (Wo rk) 03/03/2023 Virtual Visit Neurology Erlinda Barber MD [address] [place] [address] 295 [place] [address] (Wo rk) documented as of this encounter Visit Diagnoses Not on filedocumented in this encounter Additional Health Concerns Assessment Noted Time PHQ-9 Depression Total Score: 4 04/12/2019 7:03 AM CDT documented as of this encounter Care Teams Global Engineering Manager Relationship Specialty Start Date End Date Jaiden Holcomb PCP - General Internal Medicine 02/13/2010/03 MD Jayesh [address] [place] [address] [place] [address] Chastity Montero MD Dermatology 09/23/[address] 98 [place] [address] Johnnie Alcocer MD Surgeon General Surgery 03/23/[address] [place], [place] [address] Danni Marcus, CHANDLER Personal Advocate & 01/09/1901/17 Liaison (PAL) Fernando, Ea Complex 04/23/19 Svetlana Osman, Pharmacist Pharmacotherapy 04/23/19 [facility] [address] [place] [address] Haylie Cheung, Pharmacist Pharmacist 09/11/19 [facility] [address] [facility] [place] [address] Opal, Assigned Sleep 05/08/20 03/27/21 Kendall Meehan MD Provider [address] [place] [address] Erlinda Barber MD Assigned Neuroscience 05/08/20 01/26/21 [address] [place] [address] [facility] 295 [place] [address] Jaiden Holcomb Assigned PCP 05/24/20 MD Jayesh 909 [place] [address] documented as of this encounter
--- OUTSIDE RECORDS SUMMARY | 2022-06-15 12:48 | XMS_ITS | Encounter Summary ---
:1945 Author Organization [place] Address [address] [place] [address] Care Team Providers Name Role Phone Chastity Montero MD Unavailable [phone] Johnnie Alcocer MD Unavailable Danni Marcus RN Unavailable Unavailable Mtm, Ea Complex Unavailable Unavailable Svetlana Osman [facility] Unavailable [phone] Haylie Cheung [facility] Unavailable [phone] Jaiden Holcomb MD Primary Care Provider [phone] Kendall Joseph MD Unavailable Erlinda Barber MD Unavailable Jaiden Holcomb MD Unavailable Reason for Visit Reason Comments Other Home care Encounter Details Date Type Department Care Team Description 08/21/2020 [facility] Kajal Huggins Ot her (Home care) [facility] MD Am[place] [address] [place] [address] [address] [place] [address] [place] [address] Social History Tobacco Use Types Packs/Day [...] Telephone Encounter - Patience Martinez RN - 08/27/2020 2:15 PM CST Left message for October that because patient has Medicare insurance, the supplies must be ordered by home care. UNT EXECUTIVE KEY ACCOUNTS Telephone Encounter - Patience Martinez, RN - 08/24/2020 8:28 AM CST Spoke with Fauzia. She is faxing over orders for Dr. Huggins to sign. Sales Service Assistant will order supplies from [facility]. UNT EXECUTIVE KEY ACCOUNTS Telephone Encounter - MichelleanupAngelina - 08/21/2020 1:12 PM CST Caller: October- [facility] Provider: MD Kajal Huggins Detailed reason for call: Patient was being seen by [facility] who recently discharged the patientand is now being followed by a private pay HC agency [facility]. Patient has new treatment orders but has been unable to start as [facility] was providing pts supplies and now supplies will be out of pocket. October would like a call back to discuss possibly changing supply order and where they are ordering from, and/or switching HC agencies Best phone number to contact: [phone] Best time to contact: Any time today, or can call pt Ok to leave a detailed message: Yes Ok to speak to authorized person if needed: N/A Additional info: N/A (Noted to patient if reason is related to wound or incision, to please send a photo via email or Real[employer].) UNT EXECUTIVE KEY ACCOUNTS documented in this encounter Plan of Treatment Upcoming Encounters Date Type Specialty Care Team Description 11/15/2022 Virtual Visit Pharm D Haylie Cheung, [facility] 1440 [facility] [place] [phone] (Wo rk) 11/15/2022 Virtual Visit IM/Peds Yane Barraza MD [address] [place] [address] [place] [phone] (Wo rk) 03/03/2023 Virtual Visit Neurology Erlinda Barber MD [address] [place] [address] 295 [place] [address] (Wo rk) documented as of this encounter Visit Diagnoses Not on filedocumented in this encounter Additional Health Concerns Assessment Noted Time PHQ-9 Depression Total Score: 4 04/12/2019 7:03 AM CDT documented as of this encounter Care Teams Manager Plant Relationship Specialty Start Date End Date Jaiden Holcomb PCP - General Internal Medicine 02/13/2010/03 MD Jayesh [address] [place] [address] [place] [phone] Chastity Montero MD Dermatology 09/23/[address] [place] [address] 98 [place], [place] [phone] Johnnie Alcocer MD Surgeon General Surgery 03/23/[address] 300 [place] [address] Danni Marcus, RN Personal Advocate & 01/09/1901/17 Liaison (PAL) Fernando, Ea Complex 04/23/19 Svetlana Osman, Pharmacist Pharmacotherapy 04/23/19 [place] [address] [place] [address] Haylie Cheung, Pharmacist Pharmacist 09/11/19 [place] [address] [place] [address] Opal, Assigned Sleep 05/08/20 03/27/21 Kendall Meehan MD Provider [address] [facility] 106 [place] [address] Erlinda Barber MD Assigned Neuroscience 05/08/20 01/26/21 [address] [place] [address] [facility] 295 [place] [address] Jaiden Holcomb Assigned PCP 05/24/20 MD Jayesh 909 [place] [address] documented as of this encounter
--- OUTSIDE RECORDS SUMMARY | 2022-06-15 12:48 | XMS_ITS | Encounter Summary ---
:1945 Author Organization [place] Address [address] [place] [address] Care Team Providers Name Role Phone Chastity Montero MD Unavailable [phone] Johnnie Alcocer MD Unavailable Danni Marcus RN Unavailable Unavailable Mtm, Ea Complex Unavailable Unavailable Svetlana Osman [facility] Unavailable [phone] Haylie Cheung [facility] Unavailable [phone] Jaiden Holcomb MD Primary Care Provider [phone] Kendall Joseph MD Unavailable Erlinda Barber MD Unavailable Jaiden Holcomb MD Unavailable [phone] Encounter Details Date Type Department Care Team Description 08/24/2020 [facility] [place] [address] [facility] [address] [place] [address] Social History Tobacco Use Types [...] 05/03/2021 organizations such as yazidi groups, unions, [employer] or athletic groups, or school groups? How [...] Notes Letter - Historical Provider - 01/01/2021 2:58 AM CDT Letter by Patience Martinez RN at Author: Patience Martinez RN Service: -- Author Type: -- Filed: Encounter Date: 08/24/2020 Status: (Other) 08/24/2020 [facility] [place] Fax: Wound Dressing Rx and Order Form Customer Service: Order Status: New Order Verbal: Patience Martinez RN Patient Info: Name: Charlette Brush : 1945 Address: [address] [place] [address] Insurance Info: Primary: Payor: MEDICARE / Plan: MEDICARE A AND B / Product Type: Medicare / Secondary: N/A N/A [id number] - (Medicare) Physician Info: Name: Kajal Huggins MD Dept Address/Phones: [address] [place] [address], [address] [facility] [address] Wound info: VASC Wound 05/15/19 Buttocks (Active) Pre Size Length 6.5 08/13/20 1500 Pre Size Width 6 08/13/20 1500 Pre Size Depth 6.5 08/13/20 1500 Pre Total Sq cm 39 08/13/20 1500 Post Size Length Post Size Width Post Size Depth Post Total Sq cm Undermined Tunneling pink 08/13/20 1500 Description red, arango, macerated 04/21/20 1400 Prodcut Used ABD Pad;Alginate 08/13/20 1500 Drainage: Moderate Thickness: Full Duration of Need: 30 Days Supply: 30 Start Date: 08/24/20 Starter Kit: Ancillary Kit (saline, gloves, gauze) Qualifying wound/Debridement Yes Wound treatment will include irrigation and dressings to promote autolytic debridement and will be: Hibiclens wash then NS rinse then prontosan irrigation ( preferably) or Vashe cleanser then endoform antimicrobial then alginate double layer lite packing then ABD pad or kerra max pad then foam high absorbtive with silicon border. ??Change twice a day. Dressing Type Brand Size Number of pieces Frequency of change Primary Hibiclens Twice a day Normal Saline Twice a day Endoform antimicrobial 4x5 inch 30 Twice a day Secondary Alginate 4x4 max Twice a day Kerra Max pad 4x4 max Twice a day High absorptive foam with silicone border 4x4 max Twice a day Tape Note: If total out of pocket is more than $50.00 please contact the patient before processing order. OK to forward to covered supplier. Electronically Signed Physician: Dr. Kajal Huggins MD Date: 08/24/2020 [facility] documented in this encounter Plan of Treatment Upcoming Encounters Date Type Specialty Care Team Description 11/15/2022 Virtual Visit Pharm Haylie Gonzalez, [facility] [address] [facility] [place] [address] (Lena max) 11/15/2022 Virtual Visit IM/Peds Yane Barraza MD [address] [facility] [place] [address] (Lena max) 03/03/2023 Virtual Visit Neurology Erlinda Barber MD [address] [facility] [address] [place], [place] [address] (Wo rk) documented as of this encounter Visit Diagnoses Not on filedocumented in this encounter Additional Health Concerns Assessment Noted Time PHQ-9 Depression Total Score: 4 04/12/2019 7:03 AM CDT documented as of this encounter Care Teams Marketing Research Intern Relationship Specialty Start Date End Date Jaiden Holcomb PCP - General Internal Medicine 02/13/2010/03 MD Jayesh [address] [address] [place] [id number] Chastity Montero MD Dermatology 09/23/[address] [place] [address] [address] [place], [place] [address] Johnnie Alcocer MD Surgeon General Surgery 03/23/17 [address] [facility] [address] [place], [place] [id number] Danni Marcus, [facility] Personal Advocate & 01/09/1901/17 Liaison (PAL) Fernando, Ea Complex 04/23/19 Svetlana Osman, Pharmacist Pharmacotherapy 04/23/19 [facility] [address] [place] [id number] Haylie Cheung, Pharmacist Pharmacist 09/11/19 [place] [address] [place] [address] Opal, Assigned Sleep 05/08/20 03/27/21 Kendall Meehan MD Provider [address] [place] [address] Erlinda Barber MD Assigned Neuroscience 05/08/20 01/26/21 [address] [facility] [address] Provider [place], [place] [id number] Jaiden Holcomb Assigned PCP 05/24/20 MD Jayesh [address] [place], [place] [phone] documented as of this encounter
--- OUTSIDE RECORDS SUMMARY | 2022-06-15 12:48 | XMS_ITS | Encounter Summary ---
:1945 Author Organization [place] Address [address] [place] [address] Care Team Providers Name Role Phone Chastity Montero MD Unavailable [phone] Johnnie Alcocer MD Unavailable Danni Marcus RN Unavailable Unavailable Mtm, Ea Complex Unavailable Unavailable Svetlana Osman [facility] Unavailable [phone] Haylie Cheung [facility] Unavailable [phone] Jaiden Holcomb MD Primary Care Provider [phone] Kendall Joseph MD Unavailable Erlinda Barber MD Unavailable Jaiden Holcomb MD Unavailable [phone] Encounter Details Date Type Department Care Team Description 09/01/2020 [facility] Kajal Huggins, [facility] MD [place] [address] [facility] [address] [facility] [address] [place] [address] [place], [place] [phone] (Wo rk) [address] [phone] Social History Tobacco Use Types Packs/Day Years [...] 11/15/2022 Virtual Visit Pharm D Haylie Cheung, [facility] [address] [facility] [place] [address] (Wo winter) 11/15/2022 Virtual Visit IM/Peds Yane Barraza MD [address] [facility] [place] [address] (Wo rk) 03/03/2023 Virtual Visit Neurology Erlinda Barber MD [address] [facility] [address] [place] [address] (Wo rk) documented as of this encounter Visit Diagnoses Not on filedocumented in this encounter Additional Health Concerns Assessment Noted Time PHQ-9 Depression Total Score: 4 04/12/2019 7:03 AM CDT documented as of this encounter Care Teams Wood Router Relationship Specialty Start Date End Date Jaiden Holcomb PCP - General Internal Medicine 02/13/2010/03 MD Jayesh [address] [place] [address] Chastity Montero MD Dermatology 09/23/14 [address] [facility] [address] [place], [place] [address] Johnnie Alcocer MD Surgeon General Surgery 03/23/[address] [place], [place] [address] Danni Marcus, [facility] Personal Advocate & 01/09/1901/17 Liaison (PAL) Fernando, Ea Complex 04/23/19 Svetlana Osman, Pharmacist Pharmacotherapy 04/23/19 [facility] [address] [place] [address] Haylie Cheung, Pharmacist Pharmacist 09/11/19 [facility] [address] [place] [address] Opal, Assigned Sleep 05/08/20 03/27/21 Kendall Meehan MD Provider [address] [place], [place] [address] Erlinda Barber MD Assigned Neuroscience 05/08/20 01/26/21 [address] [facility] [address] Provider [place], [place] [phone] Jaiden Holcomb Assigned PCP 05/24/20 MD Jayesh [address] [place] [address] documented as of this encounter
--- OUTSIDE RECORDS SUMMARY | 2022-06-15 12:48 | XMS_ITS | Encounter Summary ---
:1945 Author Organization [facility] Address [address] [place] [address] Care Team Providers Name Role Phone Chastity Montero MD Unavailable [phone] Johnnie Alcocer MD Unavailable Danni Marcus RN Unavailable Unavailable Mtm, Ea Complex Unavailable Unavailable Svetlana Osman [facility] Unavailable [phone] Haylie Cheung [facility] Unavailable [phone] Jaiden Holcomb MD Primary Care Provider [phone] Kendall Joseph MD Unavailable Erlinda Barber MD Unavailable Jaiden Holcomb MD Unavailable [phone] Reason for Visit Reason Comments Other Lt IT ulcer Encounter Details Date Type Department Care Team Description 09/14/2020 Office Visit - [facility] Patience Toussaint NP Pressure injury of left ischium, stage 4 (H); [facility] [address] Chronic os teomyelitis, pelvis, left (H); [facility] Morbid obesity with BMI of 50.0-59.9, ad ult (H) [address] [facility] [address] [facility] [address] [place] [id number] Social History Tobacco Use Types Packs/Day Years [...] Taken Comments Blood Pressure - - Pulse 68 09/14/2020 3:09 PM EDUCATIONAL ADVISOR Temperature 36.1 ??C (97 ??F) 09/14/2020 3:09 PM EDUCATIONAL ADVISOR Respiratory Rate 18 09/14/2020 3:09 PM EDUCATIONAL ADVISOR Oxygen Saturation - - Inhaled Oxygen Concentration - - Weight - - Height - - Body Mass Index - - documented in this encounter Progress Notes Patience Toussaint NP - 09/14/2020 3:20 PM CST Images from the original note were not included. Progress Notes by Patience Toussaint NP at 09/14/2020 3:20 PM Author: Patience Toussaint NP Service: -- Author Type: Nurse Practitioner Filed: 09/14/2020 4:29 PM Encounter Date: 09/14/2020 Status: Signed Machinery Dismantler: Patience Toussaint, STILL WORKER HELPER (Nurse Practitioner) Follow up Vascular Visit Date of Service:09/14/2020 Date Last Seen: 06/22/2020; 09/07/2020 Chief Complaint: left IT pressure injury Pt returns to [facility] with regards to their left IT pressure injury. They arrive today with Fauzia home care nurse. They are currently using Vashe; endoform; alginate x2 layers; ABD, bordered foam to the wounds. They are having to reuse the bordered foam as they are only receiving 12per month; this is max allowed from insurance. Getting supplies from [facility]. This is being done by home care Gustavo's choice two times a day. They are using velcro wraps for compression. They are feelingwell today. Denies fevers, chills. No shortness of breath. She has been seen by bariatrics she is not a surgical candidate and declines medications; she has been seen by x2 different plastic surgeons and is not a surgical candidate. She has been seen and treated by ID for osteomyelitis; they do not want to continue to treat her without a definitive surgical plan for closure as this most likely will be chronic osteomyelitis. She has developed a new periwound rash and they began putting steroid cream on this. Allergies: Cephalexin, Ciprofloxacin, Clindamycin, Lanolin, Lisinopril, Mupirocin, [...] arms and legs, Disp: , Rfl: ? ferrous sulfate 325 (65 FE) MG tablet, Take 325 mg by mouth., Disp: , Rfl: ? fish oil-omega-3 fatty acids (FISH OIL) 300-1,000 mg capsule, Take 2 g by mouth daily., Disp: , Rfl: ? glutamine 500 mg cap, Take 500 mg by mouth daily., Disp: , Rfl: [...] by mouth daily., Disp: , Rfl: ? wbaorolumala-gllghbqe-yvbnuh (CEROVITE SENIOR) tablet, Take 1 tablet by mouth at bedtime., Disp: ,Rfl: ? nystatin (MYCOSTATIN) cream, Apply topically., Disp: , Rfl: ? sodium hypochlorite (DAKIN'S, HALF-STRENGTH,) external solution, Irrigate with as directed daily.,Disp: , Rfl: ? triamcinolone (KENALOG) 0.1 % ointment, Apply topically., Disp: , Rfl: ? UNASYN 3 gram SolR, , Disp: , Rfl: ? warfarin (COUMADIN) 10 [...] Patient has appointment with Retina Specialist at [facility] on 01/11. 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 ? Morbid obesity (H) ? [...] Referral placed for Dr. Kajal Huggins at [facility] in [place] per patient request. She has contact i [...] ? Weakness left lower limb Physical Exam: Pulse 68 Temp 97 ??F (36.1 ??C) Resp 18 General: Patient presents to clinic in no apparent distress. Head: normocephalic atraumatic Psychiatric: Alert and oriented x3. Respiratory: unlabored breathing; no cough Integumentary: Skin is uniformly warm, dry and pink. Wound #1 Location: left IT Size: 4L x 4W x 4depth. Difficult to measure; very positional; no sinus tract present, Wound base: red; viable; fibrinous material present No undermining present. Wound is full thickness. There is heavy drainage. Periwound: no denudement, erythema, induration, maceration or warmth. Surrounding red rash with satellite lesions Circumferential volume measures: No flowsheet data found. Ulceration(s)/Wound(s): VASC Wound 05/15/19 Buttocks (Active) Pre Size Length 4 09/14/20 1500 Pre Size Width 4 09/14/20 1500 Pre Size Depth 4 09/14/20 1500 Pre Total Sq cm 16 09/14/20 1500 Post Size Length 8.5 04/21/20 1400 [...] jelly was applied, under clean conditions, the left IT ulceration(s) were debrided using currette. Devitalized and nonviable tissue, along with any fibrin and slough, was removed to improve granulation tissue formation, stimulate wound healing, decrease overall bacteria load, disrupt biofilm formation and decrease edge senescence. Total excisional debridement was 16 sq cm from the epidermis/dermis area, into the subcutaneous tissue and into the muscle/fascia with a depth of 4 cm. Ulcers were improved afterwards and core cleaner. Measures were unchanged after debridement. 2. Wound treatment: wound treatment will include irrigation and dressings to promote autolytic debridement which will include:will continue with palliative wound cares; will continue with home care; needing two times a day cares due to drainage amounts; will add nystatin powder (she has this at home)to the periwound skin appears as yeast; will hold on the vashe for now as they feel this made thingsworse; will continue with endoform but add ag antimicrobial type; will use aquacel plain calcium alginate; cover with bordered alginate as this has 30 dressing coverage per month Stable wound healing prognosis is poor as she is not a surgical candidate; will continue palliative wound cares 3. Edema: continue with velcro; swelling was not addressed today. The compression wraps were applied today in clinic. Stable 4. Nutrition: continue to work on weight loss; she is not a bariatric surgical candidate and declines medications to help in weight loss 5. Offloading: she has cushion; provided handout, she knows to stay off the wound Patient will follow up with me in 4 weeks for reevaluation. They were instructed to call the clinicsooner with any signs or symptoms of infection or any further questions/concerns. Answered all questions. Patience Toussaint DNP, RN, RISK AND COMPLIANCE ANALYTICS DIRECTOR, CWOCN, CFCN, CLT [facility] [phone] This note was electronically signed by Patience Toussaint ATIONAL ADVISOR documented in this encounter Miscellaneous Notes Letter - Historical Provider - 01/01/2021 3:37 AM CDT Letter by Patience Toussaint NP at Author: Patience Toussaint NP Service: -- Author Type: -- Filed: Encounter Date: 09/14/2020 Status: (Other) 09/14/[address] [facility] Wound Dressing Rx and Order Form Customer Service: [phone] Order Status: New Order Verbal: Celina Patient Info: Name: Charlette Brush : 1945 Address: [facility] [place] [address] Insurance Info: Primary: Payor: MEDICARE / Plan: MEDICARE A AND B / Product Type: Medicare / Secondary: [place] [id number] - (Blue Cross [facility]) Physician Info: Name: Patience Toussaint NP Dept Address/Phones: [address] [place] [address], [address] [facility] [address] Lymphedema circumferential measurements (in cm): No data recorded No data recorded No data recorded No data recorded No data recorded No data recorded No data recorded No data recorded No data recorded No data recorded No data recorded No data recorded No data recorded No data recorded No data recorded No data recorded Wound info: Encounter Diagnoses Name Primary? ? Pressure injury of left ischium, stage 4 (H) Yes ? Chronic osteomyelitis, pelvis, left (H) ? Morbid obesity with BMI of 50.0-59.9, adult (H) VASC Wound 05/15/19 Buttocks (Active) Pre Size Length 4 09/14/20 1500 Pre Size Width 4 09/14/20 1500 Pre Size Depth 4 09/14/20 1500 Pre Total Sq cm 16 09/14/20 1500 Post Size Length 8.5 04/21/20 1400 Post Size Width 4.7 04/21/20 1400 Post Size Depth 7 04/21/20 1400 Post Total Sq cm 39.95 04/21/20 1400 Undermined no 12/12/19 0900 Tunneling pink 08/13/20 1500 Description red, arango, macerated 04/21/20 1400 Prodcut Used ABD Pad;Alginate 08/13/20 1500 Drainage: Moderate Thickness: Full Duration of Need: 30 Days Supply: 30 Start Date: 09/14/2020 Starter Kit: Ancillary Kit (saline, gloves, gauze) Qualifying wound/Debridement Yes Dressing Type Brand Size Number of pieces Frequency of change Primary Aquacel extra ?? 6''x6'' 60 Twice a day ?? Endoform AG ?? 2''x2'' 60 Twice a day ?? Eclypse bordered adhesive dressing ?? [id number] Twice a day ?? Kerra Max gentle border ?? 8''x8'' 60 Twice a day ?? Saline ?? 500mL 1 bottle Twice a day ?? Hibiclens ?? 4 oz 1 bottle twice a day Note: If total out of pocket is more than $50.00 please contact the patient before processing order. OK to forward to covered supplier. Electronically Signed Physician: Patience Toussaint NP Date: 09/15/2020 ATIONAL ADVISOR Letter - Historical Provider - 01/01/2021 3:35 AM CDT Letter by Patience Toussaint NP at Author: Patience Toussaint NP Service: -- Author Type: -- Filed: Encounter Date: 09/14/2020 Status: (Other) 09/14/2020 [facility] Medical Supply [facility] Fax: Wound Dressing Rx and Order Form Customer Service: Order Status: New Order Verbal: Celina Patient Info: Name: Charlette Brush : 1945 Address: [address] [place] [id number] Insurance Info: Primary: Payor: MEDICARE / Plan: MEDICARE A AND B / Product Type: Medicare / Secondary: BLUE CROSS [employer]UE [facility] [id number] - ([facility]) Physician Info: Name: Patience Toussaint NP Dept Address/Phones: [address] [place] [address], [address] [facility] [address] Lymphedema circumferential measurements (in cm): No data recorded No data recorded No data recorded No data recorded No data recorded No data recorded No data recorded No data recorded No data recorded No data recorded No data recorded No data recorded No data recorded No data recorded No data recorded No data recorded Wound info: Encounter Diagnoses Name Primary? ? Pressure injury of left ischium, stage 4 (H) Yes ? Chronic osteomyelitis, pelvis, left (H) ? Morbid obesity with BMI of 50.0-59.9, adult (H) VASC Wound 05/15/19 Buttocks (Active) Pre Size Length 4 09/14/20 1500 Pre Size Width 4 09/14/20 1500 Pre Size Depth 4 09/14/20 1500 Pre Total Sq cm 16 09/14/20 1500 Drainage: Moderate Thickness: Full Duration of Need: 30 Days Supply: 30 Start Date: 09/15/2020 Starter Kit: Ancillary Kit (saline, gloves, gauze) Qualifying wound/Debridement Yes Dressing Type Brand Size Number of pieces Frequency of change Primary Aquacel extra 6''x6'' 60 Twice a day Endoform AG 2''x2'' 60 Twice a day Eclypse bordered adhesive dressing [id number] Twice a day Kerra Max gentle border 8''x8'' 60 Twice a day Saline 500mL 1 bottle Twice a day Hibiclens 4 oz 1 bottle twice a day Note: If total out of pocket is more than $50.00 please contact the patient before processing order. OK to forward to covered supplier. Electronically Signed Physician: Patience Toussaint NP Date: 09/15/2020 ATIONAL ADVISOR Patient Instructions - HE - Patience Toussaint NP - 09/14/2020 3:20 PM CST Images from the original note were not included. Patient Instructions by Patience Toussaint NP at 09/14/2020 3:20 PM Author: Patience Toussaint NP Service: -- Author Type: Nurse Practitioner Filed: 09/14/2020 3:55 PM Encounter Date: 09/14/2020 Status: Addendum Machinery Dismantler: Patience Toussaint NP (Nurse Practitioner) Related Notes: Original Note by Patience Toussaint NP (Nurse Practitioner) filed at 09/14/2020 3:46 PM Continue home care 2 times per day Cleanse the wound and skin surrounding the wound with dilute hibiclens (30cc in 500cc NS) Thoroughly but gently dry Apply Nystatin antifungal powder to the rash surrounding the wound; use sparingly; rub into the skinand dust away the excess to avoid caking [place] the periwound skin with skin prep spray this will seal the powder down too and allow the dressing to stick Tuck Endoform antimicrobial collagen Tuck double layer plain calcium alginate such as aquacel Cover with bordered alginate dressing Today we ordered supplies for you from [employer]. To reorder supplies or if you have any questions aboutyour order please call [facility] Customer Service at You will need to [...] get a 4 high density foam at [employer] [facility]; or [employer] or J-cushion from [employer]; or we can order a ROHO cushion if you qualify for this type of cushion 4 high density foam cushion [employer] Cushion Nacho Cushion Roho Cushion [facility] [address] [place] [address] [place] [address] [place] [address] www.[employer] [facility] [address] [place] [address] www.[employer] ServicescalLINAGORA.[employer] Yg Delacruz Www.[email or web address] [facility] [phone] [facility] [address] [place], [place] [id number] Chair Pushups Bed Positioning ATIONAL ADVISOR documented in this encounter Plan of Treatment Upcoming Encounters Date Type Specialty Care Team Description 11/15/2022 Virtual Visit Pharm Haylie Gonzalez, [facility] [address] [facility] [address] [place], [place] [id number] (Wo rk) 11/15/2022 Virtual Visit [place] [address] [place] [address] [address] [place] [id number] (Wo rk) 03/03/2023 Virtual Visit Neurology Erlinda Barber MD [address] [facility] [address] [place], [place] [address] (Wo rk) documented as of this encounter Visit Diagnoses Diagnosis Pressure injury of left ischium, stage 4 (H) Chronic osteomyelitis, pelvis, left (H) Morbid obesity with BMI of 50.0-59.9, ad ult (H) documented in this encounter Additional Health Concerns Assessment Noted Time PHQ-9 Depression Total Score: 4 04/12/2019 7:03 AM CDT documented as of this encounter Care Teams Assistant Health Educator Relationship Specialty Start Date End Date Jaiden Holcomb PCP - General Internal Medicine 02/13/2010/03 MD Jayesh [address] [place] [address] [address] [place], [place] [id number] Chastity Montero MD Dermatology 09/23/[address] [place], [place] [address] Johnnie Alcocer MD Surgeon General Surgery 03/23/[address] [place] [address] Danni Marcus, CHANDLER Personal Advocate & 01/09/1901/17 Liaison (PAL) Kyle King Complex 04/23/19 Svetlana Osman, Pharmacist Pharmacotherapy 04/23/19 [facility] [address] [facility] [place] [address] Haylie Cheung, Pharmacist Pharmacist 09/11/19 [facility] [address] [facility] [address] [place] [id number] Opal, Assigned Sleep 05/08/20 03/27/21 Kendall Meehan MD Provider [address] [place] [address] Erlinda Barber MD Assigned Neuroscience 05/08/20 01/26/21 [address] [facility] [address] [place] [address] Jaiden Holcomb Assigned PCP 05/24/20 MD Jayesh [address] [place] [address] documented as of this encounter
--- OUTSIDE RECORDS SUMMARY | 2022-06-15 12:48 | XMS_ITS | Encounter Summary ---
:1945 Author Organization [facility] Address [address] [place] [address] Care Team Providers Name Role Phone Chastity Montero MD Unavailable [phone] Johnnie Alcocer MD Unavailable Danni Marcus RN Unavailable Unavailable Mtm, Ea Complex Unavailable Unavailable Svetlana Osman [facility] Unavailable [phone] Haylie Cheung [facility] Unavailable [phone] Jaiden Holcomb MD Primary Care Provider [phone] Kendall Joseph MD Unavailable Erlinda Barber MD Unavailable Jaiden Holcomb MD Unavailable Reason for Visit Reason Comments Other Left IT ulcer Encounter Details Date Type Department Care Team Description 08/13/2020 Office Visit - [facility] Kajal Huggins Pre ssure injury of left ischium, stage 4 (H); [facility] MD Amari Chronic osteomyelitis, pelvis, left (H); [place] [address] [facility] [employer] [employer] Venous hypertension of lower extremity, bilateral; [facility] Leg swelling; [address] [place], [place] Lymphedema of both lower ext remities; [place] [address] Morbid obesity with BMI of 50.0-59.9, ad ult (H); [id number] Injury of left sciatic nerve , sequela Social History Tobacco Use Types Packs/Day Years [...] Sign Reading Time Taken Comments Blood Pressure 138/88 08/13/2020 2:48 PM FORM CARPENTER LEFT WRIS T Pulse 68 08/13/2020 2:48 PM FORM CARPENTER Temperature 36.7 ??C (98 ??F) 08/13/2020 2:48 PM FORM CARPENTER Respiratory Rate 24 08/13/2020 2:48 PM FORM CARPENTER Oxygen Saturation - - Inhaled Oxygen Concentration - - Weight 160.6 kg (354 lb) 08/13/2020 2:48 PM FORM CARPENTER Height 170.2 cm (5' 7) 08/13/2020 2:48 PM FORM CARPENTER Body Mass Index 55.44 08/13/2020 2:48 PM FORM CARPENTER documented in this encounter Progress Notes Kajal Huggins MD - 08/13/2020 2:30 PM CST Images from the original note were not included. Progress Notes by Kajal Huggins MD at 08/13/2020 2:30 PM Author: Kajal Huggins MD Service: -- Author Type: Physician Filed: 08/13/2020 5:00 PM Encounter Date: 08/13/2020 Status: Signed [employer] Machinery Valuer: Kajal Huggins MD (Physician) Date of Service: 08/13/2020 Date last seen by Dr. Huggins: 04/21/2020 PCP: Doris Lai MD Impression: ?? 1. Left ischial ulceration bgmhljp-[id number]-91% decrease (very rough measures due to positional changes) 2. Left lower post pelvic pain-greatly improved 3. Osteomyelitis left pelvic IT-treated with 6 weeks antibiotics-may be chronic. 4. Hypoalbuminemia 5. History of necrotizing fasciitis 6. History of osteomyelitis 7. Morbid obesity 8. Nutritional deficiencies ?? Plan: 1. Questions were answered. Nurse present. 2. After discussion of risk factors and consent obtained 2% Lidocaine HCL jelly was applied, under clean conditions, the left ischial ulceration was debrided using curette. Devitalized and non viable tissue, along with any fibrin and slough, was removed to improve granulation tissue formation, stimulate wound healing, decrease overall bacteria load, disrupt biofilm formation and decrease edge senescence. Total excisional debridement was 25 sq cm into the muscle/fascia. Ulcer was improved afterwards and leather cleaner. Measures were as noted on the flow sheet . No bone was palpated, but this is much deeper. 3. Wound treatment will include irrigation and dressings to promote autolytic debridement and will be: Hibiclens wash then NS rinse then prontosan or Vashe cleanser then endoform antimicrobial then alginate double layer lite packing then foam high absorptive with silicon border. Change twice a day. Ifexudate better controlled go to once a day. [facility]. 4. Continue to work with Dr. Denton. 5. Patient will follow up with me or Patience Fitzpatrick CNP in 1 month. This wound has improved since IV antibiotics with ID. We discussed how this may not heal. At this time, however, the ulcer is improving and hopefully this can fill in now that the wound cares have been changed and she has had IV antibiotics.It would be nice to get her to the point that more definitve closure per plastic surgery could be done. Time spent in chart review and with patient in consultation, exam, education and coordination of care: 40 minutes CChief Complaint: Left IT pressure ulcer History of Present Illness: Charlette Brush returns to the [facility] for her left IT buttock ulceration which began in October 2017 after a fall complicated by necrotizing fasciitis treated with incision and drainage followed by TCU. She initially saw Patience Toussaint nurse practitioner on 05/15/2019. MRI of the pelvis showed possible early osteomyelitis. She was debrided and wound was irrigatedwith Hibiclens followed by Aquacel Ag super absorbent pad. She had gel cushions and low air loss mattress repositioning every hour with instruction on nutritional supplementation of protein. VAC was tried with difficulty keeping it in place and was discontinued. She saw infectious disease with PICC line placement and antibiotics. The osteomyelitis was felt to be treated and she was continued on the Aquacel Ag with Tegaderm and foam. She was referred to Dr. Steward and then Dr. Mindy Biswas on 08/23/2018 who both felt she was not a good surgical candidate. She was referred here. Nutritional labs and inflammatory labs were ordered by the wound care ENERGY RISK MANAGEMENT ANALYST. Prealbumin was slightly decreased at 16.4. ESR was slightly elevated at 23. Vitamin A, C, D and zinc levels were normal. Previous she had full lymphedema therapy and provided with a lymphedema pump and CircAid for her legs. She also has a history of fpc anticoagulation with history of PE and paroxysmal a-fib. When I first saw her in clinic on 12/02/2019 the area was debrided. We discussed the wound in detail. Wound care dressings were changed. She was to follow up with bariatrics and restart the lymphedema pump and to see the avian keeper in March after seeing Dr. Lala for bariatric medicine 03/27/2020. In 05/05 she reported increased pain, odor and drainage. Sed rate and CRP had increased and deep tissue culture was done with MRI ordered. MRI was concerning for early osteomyelitis. Culture was positive for proteus mirabilis, strep viridans, diphtheroids and enterococcus faecalis with anaerobic positive for peptostreptococcus species. She saw Dr. John and PICC line was placed with IV Unasyn for 6 weeks completed on 06/19/20. She has been following with the wound ENERGY RISK MANAGEMENT ANALYST last seen on 06/22/20. She is regularly debrided with wound care of alginate; bordered foam; change daily followed by velcro compression. VAC will no longer be covered by insurance. She continues to work with Dr. Lala on dietary and exercise goals. She has refused medications. Today she is here with her nurse. Dressings have has to be changed twice a day due to drainage, but there is no longer any odor or pain. She had not run a fever. Past Medical History: Diagnosis Date ? Acute [...] Patient has appointment with Retina Specialist at [facility] on 01/11. 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 [...] & Plan: Appointment with Retina Specialist at [facility] on 01/11/19. ? Morbid obesity (H) ? [...] Referral placed for Dr. Kajal Huggins at [facility] in [place] per patient request. She has contact i [...] and confirm.) ? Weakness left lower limb Past Surgical History: Procedure Laterality Date ? cholectomy ? CHOLECYSTECTOMY ? NERVE REPAIR left ? PICC 05/07/2020 ? sciatic nerve transection ? TONSILLECTOMY ? wound irrigation and debridement posterior upper thigh ? wound irrigation and debridement left buttocks Current Outpatient Medications: ? acetaminophen (TYLENOL) 325 [...] by mouth daily., Disp: , Rfl: ? bpltfyrwlltq-pngujsgr-iguspi (CEROVITE SENIOR) tablet, Take 1 tablet by [...] (XYLOCAINE), , Topical, PRN, Patience Toussaint NP Allergies Allergen Reactions ? Cephalexin ? Ciprofloxacin Developed rash while on Cipro and Clindamycin ? Clindamycin Developed rash while taking Clindamycin and Cipro ? Lanolin ? Lisinopril ? Mupirocin ? Neomycin ? Penicillins Social History Socioeconomic History ? Marital status: Single Spouse name: Not on file ? Number of children: Not on file ? Years of education: Not on file ? Highest education level: Not on file Occupational History ? Not on file Social Needs ? Financial resource strain: Not on file ? Food insecurity Worry: Not on file Inability: Not on file ? Transportation needs Medical: Not on file Non-medical: Not on file Tobacco Use ? Smoking status: Never Smoker ? Smokeless tobacco: Never Used Substance and Sexual Activity ? Alcohol use: Not Currently Frequency: Never ? Drug use: Never ? Sexual activity: Not on file Lifestyle ? Physical activity Days per week: Not on file Minutes per session: Not on file ? Stress: Not on file Relationships ? Social connections Talks on phone: Not on file Gets together: Not on file Attends advent service: Not on file Active member of club or organization: Not on file Attends meetings of clubs or organizations: Not on file Relationship status: Not on file ? Intimate partner violence Fear of current or ex partner: Not on file Emotionally abused: Not on file Physically abused: Not on file Forced sexual activity: Not on file Other Topics Concern ? Incontinent Not Asked ? Toileting independently Not Asked ? Cognitive impairment Not Asked ? Vision impairment Not Asked ? Hearing impairment Not Asked ? Dentures Not Asked Social History Narrative ? Not on file Family History Problem Relation Age of Onset ? Hypertension Mother ? Transient ischemic attack Mother ? Thyroid disease Mother Review of Systems: See HPI Imaging: I personally reviewed the following imaging results today and those on care everywhere, if indicated EXAM: MRI PELVIS WITHOUT AND WITH IV CONTRAST LOCATION: [facility] DATE/TIME: 05/04/2020 5:33 PM INDICATION: Nonhealing ulceration with suspected osteomyelitis left IT. COMPARISON: 05/24/2019 MRI. TECHNIQUE: Routine MRI pelvis without and with IV contrast. Axial, sagittal, and coronal high-resolution T2 and post gadolinium T1 with fat saturation. CONTRAST: Gadavist 10. FINDINGS: There is a deep decubitus ulceration along the left ischial tuberosity with surrounding granulation tissue, soft tissue enhancement and inflammation. The underlying left ischial tuberosity shows focal bone marrow edema enhancement with equivocal T1 signal changes. There is no rim-enhancing fluid collection or abscess. There is associated tendinosis and chronic tearing of the left proximal hamstring tendons. The remaining bones of the pelvis show no acute fracture or abnormal enhancement on postcontrast sequences. There are degenerative changes in the lower lumbar spine. Intrapelvic contents show no free fluid. Large cervical nabothian cyst. IMPRESSION: 1. Deep decubitus ulceration along the left ischial tuberosity with surrounding granulation tissue combined with underlying inflammation or infection. The ulcer comes in close contact with the ischial tuberosity which shows underlying bone marrow edema and enhancement. Early/mild osteomyelitis is of concern, noting that reactive bone marrow edema could also potentially cause this appearance. No amie cortical destructive change or underlying abscess.Findings are similar when compared to 05/24/2019. EXAM: MRI PELVIS WITHOUT AND WITH IV CONTRAST LOCATION: [facility] DATE/TIME: 05/24/2019 12:03 PM ?? INDICATION: Pelvis pain, osteomyelitis suspected, initial exam stage 4 pressure ulcer left ischial tuberosity; present 1.5 years. COMPARISON: 05/22/2018. ?? TECHNIQUE: With and without contrast. CONTRAST: Gadavist 10 mL ?? FINDINGS: Deep soft tissue ulceration adjacent to the left ischial tuberosity with intense enhancement within the subcutaneous soft tissues along the ulcer tract. The abnormality abuts the ischial tuberosity where there is minimal enhancement and edema. There is no amie periosteal reaction or cortical destructive change. There is no T1 marrow replacement. ?? Remaining exam shows no other sites of deep tissue ulceration. There is no rim- enhancing fluid collection or abscess. Pelvic ring is intact. No fracture. Intrapelvic contents show no free fluid in the pelvis. Large cervical nabothian cyst. ?? IMPRESSION: 1. Deep decubitus ulceration at the left ischial tuberosity. Ulceration comes in close contact with the ischial tuberosity where there is either focal reactive osteitis or early osteomyelitis present. No amie cortical destructive change or abscess. Nothing new to review Labs: I personally reviewed the following lab results today and those on care everywhere, if indicated Lab Results Component Value Date SEDRATE 21 (H) 06/16/2020 Lab Results Component Value Date CRP 0.9 (H) 06/16/2020 Lab Results Component Value Date CREATININE 0.53 (L) 06/16/2020 No results found for: HGBA1C Lab Results Component Value Date BUN 21 06/16/2020 Lab Results Component Value Date ALBUMIN 3.3 (L) 06/04/2019 Vitamin D, Total (25-Hydroxy) Date Value Ref Range Status 03/27/2020 47.0 30.0 - 80.0 ng/mL Final No results found for: TSH Lab Results Component Value Date WBC 4.7 06/16/2020 HGB 13.7 06/16/2020 HCT 40.7 06/16/2020 MCV 92 06/16/2020 PLT 235 06/16/2020 Ref Range & Units 12/11/19 1213 Prealbumin 19.0 - 38.0 mg/dL 16.4Low Ref Range & Units 12/11/19 1213 Vitamin C, Plasma 23 - 114 umol/L 112 Comment: INTERPRETIVE DATA: Vitamin C (Ascorbic Acid), Plasma Ref Range & Units 12/11/19 1213 Zinc, Serum/Plasma 60.0 - 120.0 ug/dL 62.7 Ref Range & Units 12/11/19 1213 Vitamin A (Retinol) 0.30 - 1.20 mg/L 0.36 Vitamin A (Retinyl Palmitate) 0.00 - 0.10 mg/L 0.08 Vitamin A, Ser/Rose - Interpretation Normal Ref Range & Units 12/12/19 1122 Vitamin B6 (Pyridoxal 5-Phosphate) 20.0 - 125.0 nmol/L 40.1 Ref Range & Units 12/12/19 1122 Vitamin B-12 213 - 816 pg/mL 636 03/09/2020 Cr 0.52 BUN 22 Albumin 3 Prealbumin 13 Glu 90 Hgb 14.7 Physical Exam: Vitals: 08/13/20 1448 BP: 138/88 Pulse: 68 Resp: 24 Temp: 98 ??F (36.7 ??C) BMI 55.44 Weight 354 lbs (+5) Circumferential measures: No flowsheet data found. VASC Wound 05/15/19 Buttocks (Active) Pre Size Length 6.5 08/13/20 1500 Pre Size Width 6 08/13/20 1500 Pre Size Depth 6.5 08/13/20 1500 Pre Total Sq cm 39 08/13/20 1500 Post Size Length 8.5 04/21/20 1400 [...] 0.06 03/24/20 1100 Description healed 08/13/20 1500 General: 75 y.o. female in no apparent distress. Psych: Alert and oriented x 3. Cooperative. Affect normal. HEENT: Atraumatic, normocephalic Integumentary: Ulceration is smaller and now measures 6.5 X 4.5 cm X 5 cm depth (positional). Granulation tissue is 40 %. Ebole continues at edges but decreased. . Moderate serosanguinous drainage and no odor. Pain to palpation of medial distal posterior left pelvis has resolved. Please see flow sheetfor measures. 12/12/2019 L IT 12/23/2019 01/08/2020 03/12/2020 08/13/20 Kajal Huggins MD, Founding Diplomate ABWMS, FACCWS, FAAPMR Purchasing Engineer Wound Care and Lymphedema [facility] [phone] This note was dictated using a voice recognition software. Any grammatical or context distortion areunintentional and inherent to the software. CARPENTER documented in this encounter Miscellaneous Notes Patient Instructions - RON - Molly Guido - 08/13/2020 2:30 PM CST Wound Care Instruction Twice a day Cleanse left IT wound with diluted hibiclens or vashe cleanser or prontosan irrigation (preferably ) Pat dry with non-sterile gauze Apply endoform antimicrobial into/onto the wound then double layer of alginate Cover with Foam with silicone border It is not ok to get your wound wet in the bath or shower ??If exudate better controlled go to once a day. It is ok to continue current wound care treatment/products for the next 2-3 days until new wound care supplies are ordered and arrive. If longer than this please contact our office at [phone]. SEEK MEDICAL CARE IF: ?? You have an increase in swelling, pain, or redness around the wound. ?? You have an increase in the amount of pus coming from the wound. ?? There is a bad smell coming from the wound. ?? The wound appears to be worsening/enlarging ?? You have a fever greater than 101.5 F CARPENTER documented in this encounter Plan of Treatment Upcoming Encounters Date Type Specialty Care Team Description 11/15/2022 Virtual Visit Pharm Haylie Gonzalez, [facility] [address] [facility] [place] [phone] (Wo rk) 11/15/2022 Virtual Visit [place] [address] [place] [address] [place] [address] (Wo rk) 03/03/2023 Virtual Visit Neurology Erlinda Barber MD [address] [facility] [address] [place] [address] (Wo rk) documented as of this encounter Visit Diagnoses Diagnosis Pressure injury of left ischium, stage 4 (H) Chronic osteomyelitis, pelvis, left (H) Venous hypertension of lower extremity, bilateral Leg swelling Swelling of limb Lymphedema of both lower extremities Morbid obesity with BMI of 50.0-59.9, ad ult (H) Injury of left sciatic nerve, sequela documented in this encounter Additional Health Concerns Assessment Noted Time PHQ-9 Depression Total Score: 4 04/12/2019 7:03 AM CDT documented as of this encounter Care Teams Steward/Stewardess Night Relationship Specialty Start Date End Date Jaiden Holcomb PCP - General Internal Medicine 02/13/2010/03 MD Jayesh [address] [facility] [place] [phone] Chastity Montero MD Dermatology 09/23/14 [address] [facility] [address] [place], [place] [id number] Johnnie Alcocer MD Surgeon General Surgery 03/23/17 Lien E JOYCE [facility] [address] [place], [place] [address] Danni Marcus, CHANDLER Personal Advocate & 01/09/1901/17 Liaison (PAL) Fernando, Kyle Complex 04/23/19 Svetlana Osman, Pharmacist Pharmacotherapy 04/23/19 [facility] [address] [place] [address] Haylie Cheung, Pharmacist Pharmacist 09/11/19 [facility] [address] [place] [address] Opal, Assigned Sleep 05/08/20 03/27/21 Kendall Meehan MD Provider [address] [facility] [address] [place] [address] Erlinda Barber MD Assigned Neuroscience 05/08/20 01/26/21 [address] [facility] [address] [place] [address] Jaiden Holcomb Assigned PCP 05/24/20 MD Jayesh [address] [place] [address] documented as of this encounter
--- OUTSIDE RECORDS SUMMARY | 2022-06-15 12:49 | XMS_ITS | Encounter Summary ---
:1945 Author Organization [place] Address [address] [place] [address] Care Team Providers Name Role Phone Chastity Montero MD Unavailable [phone] Johnnie Alcocer MD Unavailable Danni Marcus RN Unavailable Unavailable Mtm, Ea Complex Unavailable Unavailable Svetlana Osman [facility] Unavailable [phone] Haylie Cheung [facility] Unavailable [phone] Jaiden Holcomb MD Primary Care Provider [phone] Kendall Joseph MD Unavailable Erlinda Barber MD Unavailable Jaiden Holcobm MD Unavailable [phone] Reason for Visit Reason Comments Nutrition Counseling Encounter Details Date Type Department Care Team Description 08/12/2020 Office Visit - [facility] Provider, Morbid o besity with BMI of 50.0-59.9, adult (H); [facility] and Historical Nutrition al counseling Bariatrics Care [address] [address] Social History Tobacco Use Types [...] or relatives? How often do you attend protestant or More than 4 times per year 05/03/2021 adventist services? Do you belong to any clubs or No 05/03/2021 organizations such as protestant groups, unions, fraternal or athletic groups, or [...] - - Weight 160.6 kg (354 lb) 08/12/2020 2:00 PM MANUFACTURING RECRUITER Height 170.2 cm (5' 7) 08/12/2020 2:00 PM MANUFACTURING RECRUITER Body Mass Index 55.44 08/12/2020 2:00 PM MANUFACTURING RECRUITER documented in this encounter Progress Notes Aurea Shannon RD - 08/12/2020 2:30 PM CST Charlette Brush is a 75 y.o. female who is being evaluated via a billable video visit. How would you like to obtain your AVS? MyChart. If dropped from the video visit, the video invitation should be resent by: Send to e-mail at: [email or web address] Will anyone else be joining your video visit? No Video Start Time: 2:33 PM Medical Weight Loss Follow-Up Diet Evaluation Assessment: Charlette is presenting today for a follow up weight management nutrition consultation. Pt has had an initial appointment with Dr. Lala Pt's Initial Weight: 357 lbs Weight: (!) 354 lb (160.6 kg) Weight loss from initial: 3 % Weight loss: 0.84 % BMI: Body mass index is 55.44 kg/m??. Aurora body weight: 61.6 kg (135 lb 12.9 oz) Adjusted ideal body weight: 101.2 kg (223 lb 1.3 oz) Estimated RMR (Barbour-St Jeor equation): 2122 kcals Recommended Protein Intake: 80-90 grams of protein/day [...] anemia due to chronic blood loss ??? penitentiary current use of 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 ??? Lower extremity weakness ??? Lymphedema of both lower extremities ??? Macular degeneration (senile) of retina ??? Myopia ??? Nuclear sclerosis of both eyes ??? Paroxysmal atrial fibrillation (H) ??? Pressure injury of left buttock, stage 4 (H) ??? Seizure (H) ??? Sepsis, due to unspecified organism ??? Vitamin D deficiency ??? Other chronic osteomyelitis, unspecified site (H) ??? Pressure injury of left ischium, stage 4 (H) ??? Leg swelling ??? Hypoalbuminemia ??? Left foot drop ??? Venous hypertension of lower extremity, bilateral ??? Morbid obesity with BMI of 50.0-59.9, adult (H) ??? Necrotizing fasciitis (H) ??? Microscopic hematuria ??? Infected wound ??? Dysesthesia ??? Need for immunization against influenza Progress on goals from last visit: has been trying to do a bit less protein- aiming for 80g per day,not tracking food or calories Watching labels for fat, carbs and gluten (celiac). Wound is not improving, patient is afraid that if she decreases protein, her wound would get worse and that nursing care will stop. +groceries are being brought in Dietary Recall: Breakfast: 3 eggs (21g), doing a powder mixed with water and frozen fruit- ultrainflamX 360 (states this is causing constipation) Lunch:celery and peanut butter Dinner: liver and a salad Typical snacks: once in a while, sometimes corn chips with salsa Beverages: 3-4 bottles water per day Exercise: pedal bike at home, walking outside +discussed adding in upper body exercises Nutrition Diagnosis: Overweight/Obesity (NC 3.3) related to overeating and poor lifestyle habits as evidenced by patient report of??lack of activity, frequent snacking??and BMI 55.41 Intervention: 1. Nutrition counseling: encouraged consistency in diet, motivational interviewing Monitoring/Evaluation: Goals: 1. Maintain diet- 80-100g protein per day to promote wound healing Patient to follow up in 1 months(s) with bariatrician and 2 month(s) with RD Video-Visit Details Type of service: Video Visit Video End Time (time video stopped): 3:00p Originating Location (pt. Location): Home Distant Location (provider location): [facility] Platform used for Video Visit: Yossi FACTURING RECRUITER documented in this encounter Plan of Treatment Upcoming Encounters Date Type Specialty Care Team Description 11/15/2022 Virtual Visit Pharm Haylie Gonzalez, [facility] [address] [place] [place] [address] (Lena max) 11/15/2022 Virtual Visit [place] [address] [place] [address] [place] [id number] (Lena max) 03/03/2023 Virtual Visit Neurology Erlinda Barber MD [address] [facility] 295 [place] [address] (Lena max) documented as of this encounter Visit Diagnoses Diagnosis Morbid obesity with BMI of 50.0-59.9, ad ult (H) Nutritional counseling documented in this encounter Additional Health Concerns Assessment Noted Time PHQ-9 Depression Total Score: 4 04/12/2019 7:03 AM CDT documented as of this encounter Care Teams Lace Roller Relationship Specialty Start Date End Date Jaiden Holcomb PCP - General Internal Medicine 02/13/2010/03 MD Jayesh [address] [facility] [address] [place], [place] [phone] Chastity Montero MD Dermatology 09/23/14 [address] [facility] 98 [place], [place] [address] Johnnie Alcocer MD Surgeon General Surgery 03/23/17 [address] [facility] 300 [place], [place] [address] Danni Marcus, CHANDLER Personal Advocate & 01/09/1901/17 Liaison (PAL) Fernando, Ea Complex 04/23/19 Svetlana Osman, Pharmacist Pharmacotherapy 04/23/19 [facility] [address] [place], [place] [id number] Haylie Cheung, Pharmacist Pharmacist 09/11/19 [facility] [address] [place], [place] [address] Opal, Assigned Sleep 05/08/20 03/27/21 Kendall Meehan MD Provider [address] [place], [place] [address] Erlinda Barber MD Assigned Neuroscience 05/08/20 01/26/21 [address] [facility] [address] [place] [address] Jaiden Holcomb Assigned PCP 05/24/20 MD Jayesh 909 [place], [place] [id number] documented as of this encounter
--- OUTSIDE RECORDS SUMMARY | 2022-06-15 12:49 | XMS_ITS | Encounter Summary ---
:1945 Author Organization [place] Address [address] [place] [address] Care Team Providers Name Role Phone Chastity Montero MD Unavailable [phone] Johnnie Alcocer MD Unavailable Danni Marcus RN Unavailable Unavailable Mtm, Ea Complex Unavailable Unavailable Svetlana Osman [facility] Unavailable [phone] Haylie Cheung [facility] Unavailable [phone] Jaiden Holcomb MD Primary Care Provider [phone] Kendall Joseph MD Unavailable Erlinda Barber MD Unavailable Jaiden Holcomb MD Unavailable Reason for Visit Reason Onset Date Comments Home Care/Hospice 06/30/2020 Re-Certification Encounter Details Date Type Department Care Team Description 06/30/2020 Telephone [facility] Jaiden Holcomb Home Care[facility]Hospice Clinic Yarelis Mcconnell MD (Re-Certification) [address] [address] [place] [address] [phone] Social History Tobacco Use Types Packs/Day Years [...] last month, have you been in contact Unable to assess 06/15/2020 12:38 PM NEON TUBE PUMPER with someone who was confirmed or suspected to have Coronavirus / COVID-19? documented as of this encounter Miscellaneous Notes Telephone Encounter - Jolanta Reddy RN - 07/01/2020 9:38 AM CST Call to Juanita with home care, a verbal ok was given ( I left a detailed message). Jolanta Reddy RN Message handled by Nurse Triage. TUBE PUMPER Telephone Encounter - Gisele Reed - 06/30/2020 3:55 PM CST Juanita left voicemail at 3:52pm Re-Certification for another Medicare episode 60 days Callback, Thank you Luis E Carreon Transport Coordinator - Complex Care Team TUBE PUMPER documented in this encounter Plan of Treatment Upcoming Encounters Date Type Specialty Care Team Description 11/15/2022 Virtual Visit Pharm Haylie Gonzalez [facility] [address] [place] [address] (Wo rk) 11/15/2022 Virtual Visit IM/Peds Yane Barraza MD [address] [place] [address] [place] [address] (Wo rk) 03/03/2023 Virtual Visit Neurology Erlinda Barber MD [address] [place] [address] 295 [place], [place] [address] (Wo rk) documented as of this encounter Visit Diagnoses Not on filedocumented in this encounter Additional Health Concerns Assessment Noted Time PHQ-9 Depression Total Score: 4 04/12/2019 7:03 AM CDT documented as of this encounter Care Teams Pipe Smoking Machine Operator Relationship Specialty Start Date End Date Jaiden Holcomb PCP - General Internal Medicine 02/13/2010/03 MD Jayesh [address] [place] [address] [place] [address] Chastity Montero MD Dermatology 09/23/[address] [place] [address] 98 [place], [place] [address] Johnnie Alcocer MD Surgeon General Surgery 03/23/17 [address] [facility] 300 [place], [place] [address] Danni Marcus, CHANDLER Personal Advocate & 01/09/1901/17 Liaison (PAL) Fernando, Ea Complex 04/23/19 Svetlana Osman, Pharmacist Pharmacotherapy 04/23/19 [facility] [address] [place] [address] Haylie Cheung, Pharmacist Pharmacist 09/11/19 [facility] [address] [place] [address] Opal, Assigned Sleep 05/08/20 03/27/21 Kendall Meehan MD Provider [address] [place] [address] Erlinda Barber MD Assigned Neuroscience 05/08/20 01/26/21 [address] [facility] 295 [place] [address] Jaiden Holcomb Assigned PCP 05/24/20 MD Jayesh 909 [place] [address] documented as of this encounter
--- OUTSIDE RECORDS SUMMARY | 2022-06-15 12:49 | XMS_ITS | Encounter Summary ---
:1945 Author Organization [place] Address [address] [place] [address] Care Team Providers Name Role Phone Chastity Montero MD Unavailable [phone] Johnnie Alcocer MD Unavailable Danni Marcus RN Unavailable Unavailable Mtm, Ea Complex Unavailable Unavailable Svetlana Osman [facility] Unavailable [phone] Haylie Cheung [facility] Unavailable [phone] Jaiden Holcomb MD Primary Care Provider [phone] Kendall Joseph MD Unavailable Erlinda Barber MD Unavailable Jaiden Holcomb MD Unavailable [phone] Reason for Visit Reason Onset Date Comments Home Care/Hospice 07/21/2020 Encounter Details Date Type Department Care Team Description 07/21/2020 Telephone [facility] Wilbur Holcomb Home Care/Hospice Yarelis Mcconnell MD [address] [address] [address] [place] [address] [phone] Social History Tobacco Use Types Packs/Day Years [...] 05/03/2021 organizations such as lutheran groups, unions, fraternal or athletic groups, or [...] Telephone Encounter - Jolanta Reddy RN - 07/22/2020 10:51 AM OVEN ROASTER Noted, sounds like if not home care, private care will take care of patient's needs due to staffing shortages with home care. I called Juanita and let her know we got the message. Jolanta Reddy RN Message handled by Nurse Triage. ROASTER Telephone Encounter - Gisele Reed - 07/21/2020 2:43 PM CST Juanita, Nurse with [facility] at 2:34pm Needs to change visit frequency for this week Due to no staff, and Covid pandemic Patients private pay homecare will be doing patients wound dressings, not Medicare homecare Number for Juanita, . If any questions. Thank you Luis E Carreon B2B Sales Professional - Complex Care Team ROASTER documented in this encounter Plan of Treatment Upcoming Encounters Date Type Specialty Care Team Description 11/15/2022 Virtual Visit Pharm D Haylie Cheung, [facility] [address] [place] [address] (Wo rk) 11/15/2022 Virtual Visit [place] [address] [place] [address] [place] [address] (Wo rk) 03/03/2023 Virtual Visit Neurology Erlinda Barber MD [address] [place] [address] 295 [place], [place] [address] (Wo rk) documented as of this encounter Visit Diagnoses Not on filedocumented in this encounter Additional Health Concerns Assessment Noted Time PHQ-9 Depression Total Score: 4 04/12/2019 7:03 AM CDT documented as of this encounter Care Teams Fire Investigator Relationship Specialty Start Date End Date Jaiden Holcomb PCP - General Internal Medicine 02/13/2010/03 MD Jayesh [address] [place] [address] [place] [address] Chastity Montero MD Dermatology 09/23/[address] [place] [address] 98 [place], [place] [address] Johnnie Alcocer MD Surgeon General Surgery 03/23/17 [address] [facility] 300 [place], [place] [address] Danni Marcus, CHANDLER Personal Advocate & 01/09/1901/17 Liaison (PAL) Mtkinsey, Ea Complex 04/23/19 Svetlana Osman, Pharmacist Pharmacotherapy 04/23/19 [facility] [address] [place] [address] Haylie Cheung, Pharmacist Pharmacist 09/11/19 [facility] [address] [place], [place] [id number] Opal, Assigned Sleep 05/08/20 03/27/21 Kendall Meehan MD Provider [address] [place] [address] Erlinda Barber MD Assigned Neuroscience 05/08/20 01/26/21 [address] [facility] 295 [place] [address] Jaiden Holcomb Assigned PCP 05/24/20 MD Jayesh 909 [place] [address] documented as of this encounter
--- OUTSIDE RECORDS SUMMARY | 2022-06-15 12:49 | XMS_ITS | Encounter Summary ---
:1945 Author Organization [place] Address [address] [place] [address] Care Team Providers Name Role Phone Chastity Montero MD Unavailable [phone] Johnnie Alcocer MD Unavailable Danni Marcus RN Unavailable Unavailable Mtm, Ea Complex Unavailable Unavailable Svetlana Osman [facility] Unavailable [phone] Haylie Cheung [facility] Unavailable [phone] Jaiden Holcomb MD Primary Care Provider [phone] Kendall Joseph MD Unavailable Erlinda Barber MD Unavailable Jaiden Holcomb MD Unavailable [phone] Encounter Details Date Type Department Care Team Description 08/07/2020 [facility] MD Mahamed Fitzpatrick [address] [facility] [address] [place] [address] [place] [address] [place] [phone] (Wo rk) [address] [phone] Social History Tobacco Use Types Packs/Day Years [...] Cheung, [facility] [address] [facility] [place] [address] (Wo winter) 11/15/2022 Virtual Visit IM/Peds Yane Barraza MD [address] [facility] [place] [address] (Wo rk) 03/03/2023 Virtual Visit Neurology Erlinda Barber MD [address] [facility] 295 [place] [address] (Wo rk) documented as of this encounter Visit Diagnoses Not on filedocumented in this encounter Additional Health Concerns Assessment Noted Time PHQ-9 Depression Total Score: 4 04/12/2019 7:03 AM CDT documented as of this encounter Care Teams Bakery Helper Relationship Specialty Start Date End Date Jaiden Holcomb PCP - General Internal Medicine 02/13/2010/03 MD Jayesh [address] [place] [address] Chastity Montero MD Dermatology 09/23/14 [address] [facility] 98 [place], [place] [address] Johnnie Alcocer MD Surgeon General Surgery 03/23/[address] [place], [place] [address] Danni Marcus, CHANDLER Personal Advocate & 01/09/1901/17 Liaison (PAL) Fernando, Ea Complex 04/23/19 Svetlana Osman, Pharmacist Pharmacotherapy 04/23/19 [facility] [address] [place] [address] Haylie Cheung, Pharmacist Pharmacist 09/11/19 [facility] [address] [place] [address] Opal, Assigned Sleep 05/08/20 03/27/21 Kendall Meehan MD Provider [address] [place], [place] [address] Erlinda Barber MD Assigned Neuroscience 05/08/20 01/26/21 [address] [facility] 295 Provider [place], [place] [address] Jaiden Holcomb Assigned PCP 05/24/20 MD Jayesh 909 [place] [address] documented as of this encounter
--- OUTSIDE RECORDS SUMMARY | 2022-06-15 12:49 | XMS_ITS | Encounter Summary ---
:1945 Author Organization [place] Address [address] [place] [address]. [place] [address] Care Team Providers Name Role Phone Chastity Montero MD Unavailable [phone] Johnnie Alcocer MD Unavailable Danni Marcus RN Unavailable Unavailable Mtm, Ea Complex Unavailable Unavailable Svetlana Osman [facility] Unavailable [phone] [facility] Unavailable [phone] Jaiden Holcomb MD Primary Care Provider [phone] Kendall Joseph MD Unavailable Erlinda Barber MD Unavailable Jaiden Holcomb MD Unavailable [phone] Encounter Details Date Type Department Care Team Description 07/07/2020 Medical Correspondence [facility] Scan, EPISODE DETAIL Health Info Mgmt Non-Provider REPORT TUSHAR PARKER [facility] [address] [address] Social History Tobacco Use Types Packs/Day [...] 05/03/2021 organizations such as advent groups, unions, fraMoxsie or athletic groups, or school groups? How [...] contact Unable to assess 06/15/2020 12:38 PM MANAGER PROGRESSIVE CARE with someone who was confirmed or suspected to have Coronavirus / COVID-19? documented as of this encounter Plan of Treatment Upcoming Encounters Date Type Specialty Care Team Description 11/15/2022 Virtual Visit Pharm D Haylie Cheung, [facility] [address] [address] [place] [id number] (Wo rk) 11/15/2022 Virtual Visit IM/Peds Yane Barraza MD [address] [place] [address] [place] [id number] (Wo rk) 03/03/2023 Virtual Visit Neurology Erlinda Barber MD [address] [facility] 295 [place], [place] [address] (Wo rk) documented as of this encounter Visit Diagnoses Not on filedocumented in this encounter Additional Health Concerns Assessment Noted Time PHQ-9 Depression Total Score: 4 04/12/2019 7:03 AM CDT documented as of this encounter Care Teams Facilities Maintenance Engineer Relationship Specialty Start Date End Date Jaiden Holcomb PCP - General Internal Medicine 02/13/2010/03 MD Jayesh [address] [place] [address] [place] [id number] Chastity Montero MD Dermatology 09/23/14 [address] [facility] 98 [place], [place] [address] Johnnie Alcocer MD Surgeon General Surgery 03/23/[address] [place], [place] [address] Danni Marcus, CHANDLER Personal Advocate & 01/09/1901/17 Liaison (PAL) Mtkinsey, Ea Complex 04/23/19 Svetlana Osman, Pharmacist Pharmacotherapy 04/23/[address] [facility] [address] [place], [place] [id number] Haylie Cheung, Pharmacist Pharmacist 09/11/[address] [facility] [address] [place], [place] [phone] Opal, Assigned Sleep 05/08/20 03/27/21 Kendall Meehan MD Provider [address] [place], [place] [address] Erlinda Barber MD Assigned Neuroscience 05/08/20 01/26/21 [address] [facility] 295 Provider [place], [place] [address] Jaiden Holcomb Assigned PCP 05/24/20 MD Jayesh 909 [place], [place] [address] documented as of this encounter
--- OUTSIDE RECORDS SUMMARY | 2022-06-15 12:49 | XMS_ITS | Encounter Summary ---
:1945 Author Organization [place] Address [address] [place] [address] Care Team Providers Name Role Phone Chastity Montero MD Unavailable [phone] Johnnie Alcocer MD Unavailable Danni Marcus RN Unavailable Unavailable Mtm, Ea Complex Unavailable Unavailable Svetlana Osman [facility] Unavailable [phone] Haylie Cheung [facility] Unavailable [phone] Jaiden Holcomb MD Primary Care Provider [phone] Kendall Joseph MD Unavailable Erlinda Barber MD Unavailable Jaiden Holcomb MD Unavailable [phone] Reason for Visit Reason Comments Medication Refill Encounter Details Date Type Department Care Team Description 07/20/2020 Refill [facility] Doris Agarwal MD Medication Refill Yarelis 05[address] [facility] 3305 [facility] [place] [address] [address] [place] [address] [phone] Social History Tobacco Use Types Packs/Day Years [...] Telephone Encounter - Sasha Rueda RN - 07/20/2020 11:19 AM CST Anticoagulation Monitoring Return Date Recheck Instructions Latest Ref Rng & Units 07/15/2020 08/12/2020 10 mg every day Prescription approved per [facility] Refill Protocol. Sasha Rueda RN Anticoagulation Nurse - [facility] UAL ASSISTANT FOR ADVERTISERS Telephone Encounter - Jolanta Reddy RN - 07/20/2020 11:17 AM VIRTUAL ASSISTANT FOR ADVERTISERS Forwarded to INR. Jolanta Reddy RN Message handled by Nurse Triage. UAL ASSISTANT FOR ADVERTISERS Telephone Encounter - Amelia Richardson RN - 07/20/2020 9:26 AM CST Please address. Amelia Richardson RN on 07/20/2020 at 9:26 AM UAL ASSISTANT FOR ADVERTISERS documented in this encounter Plan of Treatment Upcoming Encounters Date Type Specialty Care Team Description 11/15/2022 Virtual Visit Pharm Haylie Gonzalez, [facility] [address] [place], [place] [id number] (Wo rk) 11/15/2022 Virtual Visit [place] [address] [place] [address] [address] [place] [phone] (Wo rk) 03/03/2023 Virtual Visit Neurology Erlinda Barber MD [address] [place] [address] 295 [place], [place] [address] (Wo rk) documented as of this encounter Visit Diagnoses Diagnosis 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 manager current use of anticoagulant t herapy documented in this encounter Additional Health Concerns Assessment Noted Time PHQ-9 Depression Total Score: 4 04/12/2019 7:03 AM CDT documented as of this encounter Care Teams Post Doctoral Fellow Relationship Specialty Start Date End Date Jaiden Holcomb PCP - General Internal Medicine 02/13/2010/[address] MD Jayesh [address] [place] [address] [place] [address] Chastity Montero MD Dermatology 09/23/[address] [place] [address] 98 [place], [place] [address] Johnnie Alcocer MD Surgeon General Surgery 03/23/17 [address] [facility] 300 [place], [place] [address] Danni Marcus, CHANDLER Personal Advocate & 01/09/1901/17 Liaison (PAL) Fernando, Ea Complex 04/23/19 Svetlana Osman, Pharmacist Pharmacotherapy 04/23/19 [facility] [address] [place] [address] Haylie Cheung, Pharmacist Pharmacist 09/11/19 [facility] [address] [place], [place] [id number] Opal, Assigned Sleep 05/08/20 03/27/21 Kendall Meehan MD Provider [address] [place] [address] Erlinda Barber MD Assigned Neuroscience 05/08/20 01/26/21 420 [facility] 295 [place] [address] Jaiden Holcomb Assigned PCP 05/24/20 MD Jayesh 909 [place] [address] documented as of this encounter
--- OUTSIDE RECORDS SUMMARY | 2022-06-15 12:49 | XMS_ITS | Encounter Summary ---
:1945 Author Organization [facility] Address [address] [facility] [place] [address] Care Team Providers Name Role Phone Chastity Montero MD Unavailable [phone] Johnnie Alcocer MD Unavailable Danni Marcus RN Unavailable Unavailable Mtm, Ea Complex Unavailable Unavailable Svetlana Osman [facility] Unavailable [phone] Haylie Cheung [facility] Unavailable [phone] Jaiden Holcomb MD Primary Care Provider [phone] Kendall Joseph MD Unavailable Erlinda Barber MD Unavailable Jaiden Holcomb MD Unavailable Encounter Details Date Type Department Care Team Description 07/13/2020 Home Infusion [facility] Reva Galvez, [facility] [address] [place] [phone] 422 [facility] [phone] [place] [address] (Wo rk) Social History Tobacco Use Types [...] as of this encounter Progress Notes Brook Pineda - 07/13/2020 11:59 PM CST This is a recent snapshot of the patient's [facility] medical record. For current drug dose and complete information and questions, call [phone] or [facility] ([id number]) CSN Number: [id number] E TRANSPLANT documented in this encounter Plan of Treatment Upcoming Encounters Date Type Specialty Care Team Description 11/15/2022 Virtual Visit Pharm D Haylie Cheung, [facility] [address] [facility] [place] [address] (Wo rk) 11/15/2022 Virtual Visit IM/Peds Yane Barraza MD 3305 [facility] [place] [address] (Wo rk) 03/03/2023 Virtual Visit Neurology Erlinda Barber MD 420 [facility] 295 [place] [address] (Wo rk) documented as of this encounter Visit Diagnoses Not on filedocumented in this encounter Additional Health Concerns Assessment Noted Time PHQ-9 Depression Total Score: 4 04/12/2019 7:03 AM CDT documented as of this encounter Care Teams Jumpbasting Collar Baster Relationship Specialty Start Date End Date Jaiden Holcomb PCP - General Internal Medicine 02/13/2010/03 MD Jayesh [address] [facility] [address] [place], [place] [phone] Chastity Montero MD Dermatology 09/23/14 420 [facility] 98 [place], [place] [address] Johnnie Alcocer MD Surgeon General Surgery 03/23/17 [address] [facility] 300 [place], [place] [address] Danni Marcus, CHANDLER Personal Advocate & 01/09/1901/17 Liaison (PAL) Fernando, Ea Complex 04/23/19 Svetlana Osman, Pharmacist Pharmacotherapy 04/23/19 [facility] [address] [place], [place] [phone] Haylie Cheung, Pharmacist Pharmacist 09/11/19 [facility] [address] [place], [place] [phone] Opal, Assigned Sleep 05/08/20 03/27/21 Kendall Meehan MD Provider [address] [place], [place] [address] Erlinda Barber MD Assigned Neuroscience 05/08/20 01/26/21 [address] [facility] [address] [place] [address] Jaiden Holcomb Assigned PCP 05/24/20 MD Jayesh 909 [place] [address] documented as of this encounter
--- OUTSIDE RECORDS SUMMARY | 2022-06-15 12:49 | XMS_ITS | Encounter Summary ---
:1945 Author Organization [facility] Address [address] [place] [address] Care Team Providers Name Role Phone Chastity Montero MD Unavailable [phone] Johnnie Alcocer MD Unavailable Danni Marcus RN Unavailable Unavailable Mtm, Ea Complex Unavailable Unavailable Svetlana Osman [facility] Unavailable [phone] Haylie Cheung [facility] Unavailable [phone] Jaiden Holcomb MD Primary Care Provider [phone] Kendall Joseph MD Unavailable Erlinda Barber MD Unavailable Jaiden Holcomb MD Unavailable Encounter Details Date Type Department Care Team Description 07/15/2020 Anticoagulation Therapy [facility] Zhang, 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 embolism; Visit Clinic Yarelis Hwang Paroxysmal atrial fibrillati on (H); 9089 [place] MD Jayesh FDC current use of anticoagulant t [facility] [address] [place] [address] 200 [facility] [phone] Social History Tobacco Use Types [...] contact Unable to assess 06/15/2020 12:[address] JUDGE with someone who was confirmed or suspected to have Coronavirus / COVID-19? documented as of this encounter Progress Notes Fadumo Davies RN - 07/15/2020 4:29 PM CST ANTICOAGULATION MANAGEMENT Patient Name: Charlette Brush Date: 07/15/2020 ASSESSMENT /SUBJECTIVE: Today's INR result of 2.5 is therapeutic. Goal INR of 2.0-3.0 ??? Warfarin dose taken: Warfarin taken as instructed ??? Diet: No new diet changes affecting INR ??? Medication changes/ interactions: No new medications/supplements affecting INR ??? Previous INR: Therapeutic ??? S/S of bleeding or thromboembolism: No ??? New injury or illness: No ??? Upcoming surgery, procedure or cardioversion: No ??? Additional findings: None PLAN: Telephone call with home care nurse Juanita regarding INR result and instructed: Warfarin Dosing Instructions: Continue your current warfarin dose 10 mg daily Instructed patient to follow up no later than: 4 weeks Orders given to Homecare nurse/facility to recheck Education provided: None required Juanita, home care, verbalizes understanding and agrees to warfarin dosing plan. Instructed to call the Anticoagulation Clinic for any changes, questions or concerns. (#[phone]) Fadumo Davies RN OBJECTIVE: Recent labs: (last 7 days) 07/15/20 INR 2.5* No question data found. 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 Anticoagulation Care Providers Provider Role Specialty Phone number Galdino Valdez MD Referring Family Medicine [phone] Lucero Stevenson MD Responsible Internal Medicine [phone] JUDGE documented in this encounter Plan of Treatment Upcoming Encounters Date Type Specialty Care Team Description 11/15/2022 Virtual Visit Pharm D Haylie Cheung, [facility] 1440 [facility] [place] [address] (Lena max) 11/15/2022 Virtual Visit IM/Yane Mathias MD 2658 [facility] [place] [address] (Lena max) 03/03/2023 Virtual Visit Neurology Erlinda Barber MD 420 [facility] 295 [place], [place] [address] (Wo rk) documented as of this encounter Procedures Procedure Name Priority Date/Time Associated Diagnosis Comme nts INR Routine 07/15/2020 Results for thi s procedure are in the resu lts section. 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 t herapy documented in this encounter Additional Health Concerns Assessment Noted Time PHQ-9 Depression Total Score: 4 04/12/2019 7:03 AM CDT documented as of this encounter Care Teams Final Operations Technician Relationship Specialty Start Date End Date Jaiden Holcomb PCP - General Internal Medicine 02/13/2010/03 MD Jayesh [facility] [facility] [facility] [address] [place] [phone] Chastity Montero MD Dermatology 09/23/[address] [place] [address] 98 [place], [place] [address] Johnnie Alcocer MD Surgeon General Surgery 03/23/[address] [place], [place] [address] Danni Marcus, CHANDLER Personal Advocate & 01/09/1901/17 Liaison (PAL) Kyle King Complex 04/23/19 Svetlana Osman, Pharmacist Pharmacotherapy 04/23/19 [facility] [address] [facility] [address] [place] [phone] Haylie Cheung, Pharmacist Pharmacist 09/11/19 [facility] [address] [facility] [address] [place] [phone] Opal, Assigned Sleep 05/08/20 03/27/21 Kendall Meehan MD Provider [address] [place] [address] Erlinda Barber MD Assigned Neuroscience 05/08/20 01/26/21 420 [facility] 295 [place] [address] Jaiden Holcomb Assigned PCP 05/24/20 MD Jayesh 909 [place] [address] documented as of this encounter
--- OUTSIDE RECORDS SUMMARY | 2022-06-15 12:49 | XMS_ITS | Encounter Summary ---
:1945 Author Organization [place] Address [address] [place] [address] Care Team Providers Name Role Phone Chastity Montero MD Unavailable [phone] Johnnie Alcocer MD Unavailable Danni Marcus RN Unavailable Unavailable Mtm, Ea Complex Unavailable Unavailable Svetlana Osman [facility] Unavailable [phone] Haylie Cheung [facility] Unavailable [phone] Jaiden Holcomb MD Primary Care Provider [phone] Kendall Joseph MD Unavailable Erlinda Barber MD Unavailable Jaiden Holcomb MD Unavailable [phone] Ruth John MD Unavailable Kajal Huggins MD Unavailable Patience Toussaint NP Unavailable Brook Sánchez MD Unavailable Yane Barraza MD Primary Care Provider Osmar Kidd MD Unavailable Erlinda Barber MD Unavailable Yane Barraza MD Primary Care Provider Lenore Alcala MD Unavailable Segundo Cheungfany Giuseppe Bob [facility] Unavailable [phone] Gaye Patrick RN Unavailable Unavailable Kenya Abernathy APRN SILK SCREEN PRINTER MACHINE Unavailable [phone] Hayley German OD Unavailable [phone] Jonatan Haylie Ka Bob [facility] Unavailable [phone] Reason for Visit Reason Onset Date Comments Refill Request 07/20/2020 hydrochlorothiazide (HYDRODIURIL) 12.5 MG tablet (Discontinued) Encounter Details Date Type Department Care Team Description 07/20/2020 Refill [facility] Jaiden Holcombil l Request Clinic Yarelis Mcconnell MD (hydrochlorothiazide [address] [place] 9[address] [facility] (HYDRODIURIL) 12.5 MG [place], [place] tablet (Discontinued)) [address] [address] [place] [address] [phone] Social History Tobacco Use Types Packs/Day Years [...] Encounter - Jolanta Reddy RN - 07/22/2020 11:25 AM TELEPHONE SALES AGENT Medication has been discontinued at last appointment in April. Jolanta Reddy RN Message handled by Nurse Triage. PHONE SALES AGENT documented in this encounter Plan of Treatment Upcoming Encounters Date Type Specialty Care Team Description 11/15/2022 Virtual Visit Pharm D Haylie Cheung, [facility] 1440 [facility] [place] [phone] (Wo rk) 11/15/2022 Virtual Visit IM/Peds Yane Barraza MD [address] [place] [address] [place] [phone] (Wo rk) 03/03/2023 Virtual Visit Neurology Erlinda Barber MD 420 [facility] 295 [place], [place] [address] (Wo rk) documented as of this encounter Visit Diagnoses Diagnosis Essential hypertension, benign Lymphedema of both lower extremities documented in this encounter Additional Health Concerns Assessment Noted Time PHQ-9 Depression Total Score: 4 04/12/2019 7:03 AM CDT documented as of this encounter Care Teams Manager Sales Support Relationship Specialty Start Date End Date Jaiden Holcomb PCP - General Internal Medicine 02/13/2010/03 MD Jayesh [address] [place] [address] [place] [phone] Yane Barraza MD PCP - General Internal Medicine 10/04/21 12/07/[address] [place] [address] [place] [phone] Yane Barraza MD PCP - General Internal Medicine 12/08/[address] [place] [address] [place] [phone] Chastity Montero MD Dermatology 09/23/14 MD 420 [facility] 98 [place], [place] [phone] Johnnie Alcocer MD Surgeon General Surgery 03/23/[address] [place], [place] [phone] Danni Marcus, CHANDLER Personal Advocate & 01/09/1901/17 Liaison (PAL) Fernando, Ea Complex 04/23/19 Svetlana Osman, Pharmacist Pharmacotherapy 04/23/19 [facility] [address] [place] [address] Haylie Cheung, Pharmacist Pharmacist 09/11/19 [facility] [address] [facility] [address] [place] [phone] Opal, Assigned Sleep 05/08/20 03/27/21 Kendall Meehan MD Provider [address] [facility] 106 [place], [place] [address] Erlinda Barber MD Assigned Neuroscience 05/08/20 01/26/21 420 [facility] 295 Provider [place], [place] [address] Jaiden Holcomb Assigned PCP 05/24/20 MD Jayesh 909 [place], [place] [address] Ruth John MD Assigned Infectious 01/29/21 07/03/21 [facility] INFECTIOUS Disease Provider [facility] [address] [facility] [address] [place], [place] [phone] Kajal Huggins MD Assigned Neuroscience 01/29/21 10/23/21 2945 [facility] Provider [address] [place], [place] [phone] Patience Toussaint NP Assigned Surgical 01/29/21 02/11/22 2945 [facility] Provider [address] [place], [place] [phone] Brook Sánchez MD Assigned Infectious 07/04/21 [address] [facility] SE Disease Provider [place], [place] [address] Osmar Kidd MD Assigned Sleep 09/26/[address] [place] [address] Erlinda Barber MD Assigned Neuroscience 10/24/[address] [address] [facility] [address] Provider [place], [place] [address] Lenore Alcala MD Assigned Heart and 12/18/21 01/21/[address] Vascular Provider [address] [place] [address] Haylie Cheung, Assigned MTM 01/08/22 [facility] Pharmacist [address] [phone] Gaye Patrick, RN Personal Advocate & 01/18/22 Liaison (PAL) Kenya Abernathy APRN Assigned Heart and 01/22/22 SILK SCREEN PRINTER MACHINE Vascular Provider [address] [place] [address] Hayley German, Assigned Surgical 02/12/22 OD Provider 3305 [facility] [place] [address] Haylie Cheung, Assigned MTM 04/13/22 [facility] Pharmacist [address] [place] [address] documented as of this encounter
--- OUTSIDE RECORDS SUMMARY | 2022-06-15 12:49 | XMS_ITS | Encounter Summary ---
:1945 Author Organization [place] Address [address] [place] [address] Care Team Providers Name Role Phone Chastity Montero MD Unavailable [phone] Johnnie Alcocer MD Unavailable Danni Marcus RN Unavailable Unavailable Mtm, Ea Complex Unavailable Unavailable Svetlana Osman [facility] Unavailable [phone] Haylie Cheung [facility] Unavailable [phone] Jaiden Holcomb MD Primary Care Provider [phone] Kendall Joseph MD Unavailable Erlinda Barber MD Unavailable Jaiden Holcomb MD Unavailable [phone] Reason for Visit Reason Comments Weight Problem Medication check Encounter Details Date Type Department Care Team Description 07/27/2020 Office Visit - [facility] Braxton Lala, [facility] [address] [place] [address] 2945 [facility] [address] [place] [address] [phone] (Work) [phone] Social History Tobacco Use Types Packs/Day Years [...] documented as of this encounter Progress Notes Braxton Lala MD - 07/27/2020 2:45 PM CST Charlette Brush is a 75 y.o. year old female who is being evaluated via a billable video visit. How would you like to obtain your AVS? MyChart. If dropped from the video visit, the video invitation should be resent by: Text to cell phone: [phone] Will anyone else be joining your video visit? No Video Start Time: 52048:36 PM Provider Notes: Nonsurgical follow up from 03/27/20 Intake 363 lbs, BMI 55.9. was down to 349 lbs April 2002. RMR just about 2100kcal/day w/ protein goal between 70-90g/day. She wasn't interested in meds at our follow up but naltrexone discussed. Today she reports ampicillin is done now, infection is doing better. Has boosted protein intake and getting a bit too much lately. Weight today was 357 lbs. Low of 350 lbs. Fluid retention a bit more the last week. Fish oil ongoing. Probiotics on going, had questions that were answered. Metamucil daily. Water intake OK. Discussed holding her iron now given some ongoing constipation. Some popping through of her umbilical hernia. Walking and biking inside now regularly, 2-3 times 30 minutes per session. Wound care twice daily now. Diet improving. Some defeatist talk today regarding inability to lose weight but positive about getting the most exercise she's had in years, active nearly every day. Still not interested in medicinal aids. Plan: 1. Great work with exercise regimen this winter. 2. Given some constipation and recent blood work, I think it reasonable to come off your iron and you can follow up iron studies if needed later this year. 3. Zinc boost is complete. If your eye vitamin has 15mg of zinc per serving then that should be sufficient. Otherwise if under 5mg/serving then use twice weekly zinc gluconate 50mg. 4. Continue working with Aurea on dietary goals. Given some difficulty in moving weight down, 80g/day of lean protein is a reasonable target as you're overshooting a bit more than necessary now. 1400-1500kcal/day should be a reasonable intake goal total for weight loss. 5. You declined medication support. Consideration for naltrexone. Plenity may have a roll once your constipation improves but is expensive currently at about $100/month due to limited roll out. Saxendacoverage can be difficult to get with medicare. Video-Visit Details Type of service: Video Visit converted to phone after failure of video/audio due to poor connection. Video End Time (time video stopped): 3:19 PM Originating Location (pt. Location): Home Distant Location (provider location): [facility] [place] Platform used for Video Visit: AmZe BITION SPECIALIST documented in this encounter Miscellaneous Notes Patient Instructions - HE - Braxton Lala MD - 07/27/2020 2:45 PM CST Plan: 1. Great work with exercise regimen this winter. 2. Given some constipation and recent blood work, I think it reasonable to come off your iron and you can follow up iron studies if needed later this year. 3. Zinc boost is complete. If your eye vitamin has 15mg of zinc per serving then that should be sufficient. Otherwise if under 5mg/serving then use twice weekly zinc gluconate 50mg. 4. Continue working with Aurea on dietary goals. Given some difficulty in moving weight down, 80g/day of lean protein is a reasonable target as you're overshooting a bit more than necessary now. 1400-1500kcal/day should be a reasonable intake goal total for weight loss. 5. You declined medication support. Consideration for naltrexone. Plenity may have a roll once your constipation improves but is expensive currently at about $100/month due to limited roll out. Saxendacoverage can be difficult to get with medicare. LEAN PROTEIN SOURCES Getting 20-30 grams of [...] Portion Calories Grams of Protein Nonfat, plain Thai yogurt (10 grams sugar or less) 3/4 [...] (broiled, grilled, baked) 3 ounces 100 21 [place]/Tuna (broiled, grilled, baked) 3 ounces 150-180 21 Shrimp, Scallops, Lobster, Crab 3 ounces 100 21 Pork loin, Pork Tenderloin 3 ounces 150 21 Boneless, skinless chicken /turkey breast (broiled, grilled, baked) 3 ounces 120 21 [place], [place], [place], and Venison 3 ounces 120 21 Lean cuts of red meat and pork (sirloin, round, tenderloin, flank, ground 93%-96%) 3 ounces 170 21 Lean or Extra Lean Ground [place] 1/2 cup 150 20 90-95% Lean [place] Burger 1 melanie 140-180 21 Low-fat casserole with lean meat 3/4 cup 200 17 Luncheon Meats (turkey, lean ham, roast beef, chicken) 3 ounces 100 21 Egg (boiled, poached, scrambled) 1 Egg 60 7 Egg Substitute 1/2 cup 70 10 Nuts (limit to 1 serving per day) 3 Tbsp. 150 7 Nut [place] (peanut, almond) Limit to 1 serving or less daily 1 Tbsp. 90 4 Soy Burger (varies) 1 90-130 15 Garbanzo, Black, Mena Beans 1/2 cup 110 7 Refried Beans 1/2 cup 100 7 Kidney and Michaels beans 1/2 cup 110 7 Tempeh 3 oz 175 18 Vegan crumbles 1/2 cup 100 14 Tofu 1/2 cup 110 14 [place] (beans and extra lean beef or turkey) 1 cup 200 23 Lentil Stew/Soup 1 cup 150 12 Black Campbell Soup 1 cup 175 12 Example Meal Plan for a 2376-9782 Calorie Diet: In order to fuel your [...] low in olive oil: 90-100 calories. 5oz Thai Yogurt (Fage plain classic: ~150 michael) Handful [...] of protein powder such as BiPro or Sumi???sWhey for example. If you don't like dairy, make with 8oz water, one small banana, handful of berries and the protein powder, add any veggies you want as well: roughly 200 calories. Glass of Water Dinner: 325 calories 4oz of fresh, [place] salmon. Broiled (salt/pepper/dill) for about 8-8.5 minutes [...] your plan execution. 5. Call if problems/concerns. Parakweet is a great tool to stay in [...] supplement or a Hair and Nail multivitamin. BITION SPECIALIST documented in this encounter Plan of Treatment Upcoming Encounters Date Type Specialty Care Team Description 11/15/2022 Virtual Visit Pharm Haylie Gonzalez, [facility] 14[address] [facility] [address] [place] [phone] (Wo winter) 11/15/2022 Virtual [place] [address] [place] [address] [place] [phone] (eLna max) 03/03/2023 Virtual Visit Neurology Erlinda Barber MD 420 [facility] 295 [place] [address] (Lena max) documented as of this encounter Visit Diagnoses Diagnosis Wound healing, delayed Open wound(s) (multiple) of unspecified site(s), complicated documented in this encounter Additional Health Concerns Assessment Noted Time PHQ-9 Depression Total Score: 4 04/12/2019 7:03 AM CDT documented as of this encounter Care Teams Shuttle Truck Driver Relationship Specialty Start Date End Date Jaiden Holcomb PCP - General Internal Medicine 02/13/2010/03 MD Jayesh [address] [facility] [address] [place], [place] [phone] Chastity Montero MD Dermatology 09/23/14 420 [facility] 98 [place], [place] [phone] Johnnie Alcocer MD Surgeon General Surgery 03/23/17 [address] [facility] 300 [place], [place] [phone] Danni Marcus, CHANDLER Personal Advocate & 01/09/1901/17 Liaison (PAL) Fernando, Ea Complex 04/23/19 Svetlana Osman, Pharmacist Pharmacotherapy 04/23/19 [facility] [address] [place] [address] Haylie Cheung, Pharmacist Pharmacist 09/11/19 [facility] [address] [place], [place] [phone] Opal, Assigned Sleep 05/08/20 03/27/21 Kendall Meehan MD Provider [address] [place], [place] [phone] Erlinda Barber MD Assigned Neuroscience 05/08/20 01/26/21 420 [facility] EM[facility]PARTMENT 295 [place] [address] Jaiden Holcomb Assigned PCP 05/24/20 MD Jayesh 909 [place] [address] documented as of this encounter
--- OUTSIDE RECORDS SUMMARY | 2022-06-15 12:49 | XMS_ITS | Encounter Summary ---
:1945 Author Organization [place] Address [address] [place] [address] Care Team Providers Name Role Phone Chastity Montero MD Unavailable [phone] Johnnie Alcocer MD Unavailable Danni Marcus RN Unavailable Unavailable Mtm, Ea Complex Unavailable Unavailable Svetlana Osman [facility] Unavailable [phone] Haylie Cheung [facility] Unavailable [phone] Jaiden Holcomb MD Primary Care Provider [phone] Kendall Joseph MD Unavailable Erlinda Barber MD Unavailable Jaiden Holcomb MD Unavailable [phone] Encounter Details Date Type Department Care Team Description 07/16/2020 Orders Only [facility] Jaiden Holcomb DIAGN OSIS NOT YET Clinic Yarelis Mcconnell MD DEFINED (Primary Dx) [address] [place], [place] [address] [address] [place] [address] Social History Tobacco Use [...] Haylie Gonzalez, [facility] [address] [facility] [address] [place] [address] (Wo rk) 11/15/2022 Virtual Visit IM/PedYane Muir MD [address] [facility] [place] [address] (Wo rk) 03/03/2023 Virtual Visit Neurology Erlinda Barber MD [address] [facility] [address] [place], [place] [id number] (Wo rk) documented as of this encounter Procedures Procedure Name Priority Date/Time Associated Diagnosis Comme nts VA RECERTIFICATION WEB APPLICATIONS DEVELOPER PT Routine 07/16/2020 DIAGNOSIS NO T YET DEFINED documented in this encounter Results MD WYATT WEB APPLICATIONS DEVELOPER PT (07/16/2020) Narrative This result has an attachment that is no t available. Jaiden Holcomb MD SPECIAL REPORTS documented in this encounter Visit Diagnoses Diagnosis DIAGNOSIS NOT YET DEFINED - Primary documented in this encounter Additional Health Concerns Assessment Noted Time PHQ-9 Depression Total Score: 4 04/12/2019 7:03 AM CDT documented as of this encounter Care Teams Plant Associate Relationship Specialty Start Date End Date Jaiden Holcomb PCP - General Internal Medicine 02/13/2010/03 MD Jayesh [address] [facility] [address] [place], [place] [id number] Chastity Montero MD Dermatology 09/23/14 ID [address] [facility] [address] [place], [place] [address] Johnnie Alcocer MD Surgeon General Surgery 03/23/17 [address] [place], [place] [id number] Danni Marcus, CHANDLER Personal Advocate & 01/09/1901/17 Liaison (PAL) Fernando, Ea Complex 04/23/19 Svetlana Osman, Pharmacist Pharmacotherapy 04/23/19 [facility] [address] [place], [place] [id number] Haylie Cheung, Pharmacist Pharmacist 09/11/19 [facility] [address] [place], [place] [id number] Opal, Assigned Sleep 05/08/20 03/27/21 Kendall Meehan MD Provider [address] [place], [place] [address] Erlinda Barber MD Assigned Neuroscience 05/08/20 01/26/[address] [facility] [address] Provider [place], [place] [address] Jaiden Holcomb Assigned PCP 05/24/20 MD Jayesh [address] [place], [place] [address] documented as of this encounter
--- OUTSIDE RECORDS SUMMARY | 2022-06-15 12:49 | XMS_ITS | Encounter Summary ---
:1945 Author Organization [place] Address [address] [place] [address] Care Team Providers Name Role Phone Chastity Montero MD Unavailable [phone] Johnnie Alcocer MD Unavailable Danni Marcus RN Unavailable Unavailable MtKyle euceda Complex Unavailable Unavailable Svetlana Osman [facility] Unavailable [phone] Haylie Cheung [facility] Unavailable [phone] Jaiden Holcomb MD Primary Care Provider [phone] Kendall Joseph MD Unavailable Erlinad Barber MD Unavailable Jaiden Holcomb MD Unavailable Reason for Visit Reason Comments Derm Problem Pressure ulcer Weight Problem Lymphedema Hypertension Anxiety Encounter Details Date Type Department Care Team Description 08/03/2020 Virtual Visit [facility] Luis Holcomb MD [address] [place] [address] Pressure ulcer of ischium, left, stage I V (H) (Primary Dx); Clinic Yarelis martínez, Kyle Rn Pal Morbid obesity -- BMI 55.6; [address] [place] Essential hypertension, benign; [address] Lymphedema of both lower ext remities; [address] Umbilical hernia without obs truction and without gangrene; [place] [address] Iron deficiency anemia, unsp ecified iron deficiency anemia type; [phone] Hypoalbuminemia ; Chronic midline thoracic back pain Social History Tobacco Use Types Packs/Day Years [...] Patient Instructions Patient InstructionsDanni Marcus RN - 08/03/2020 1:00 PM CST Recommendations from today's Complex Care Team visit: Thank you for participating in our complex care team visit today! 1. For constipation-Decrease Iron use to twice weekly. Continue Metamucil. 2. We would like to recheck the Albumin level. If Albumin level has improved, consider decreasing protein in your diet per recommendation of the Legislators. 3. Back pain-Do not exceed more than 3000 mg of Tylenol daily If one tablet of Tylenol is effective for pain control, continue with this regimen. Try heat pads and ice for comfort. Next care team visit: 4 months Please feel free to contact us with any questions or concerns you have. You may reach the complex care team directly at [phone]. Please feel free to leave a voicemail if we are not available and we will return your call as soon as possible. My Care Team Members Dr. Jaiden Holcomb Nurse KODY(s) Genevieve MTM (medication therapy management) is a service provided by a clinical pharmacist designed to help you get the most of out of your medicines. My Clinical Pharmacist's contact information: It was great to speak with you today. I value your experience and would be very thankful for your time with providing feedback on our clinic survey. You may receive a survey via email or text message in the next few days. ON HELPER documented in this encounter Progress Notes Jaiden Holcomb MD - 08/03/2020 1:00 PM CST Assessment/Plan Problem List Items Addressed This Visit Umbilical hernia without obstruction and without gangrene Patient notes increased constipation. Having 1-2 stools daily but has to push hard to evacuate stool. This is causing protrusion of umbilical hernia. Hernia has been reducible. Continue Metamucil. Patient wishes to avoid a stool softener as this has interfered with keeping ischial wound dressing clean. Decrease Iron use to twice per week. Pressure ulcer of ischium, left, stage IV (H) - Primary Completed six weeks of IV Unasyn. Has follow-up with Dr. Huggins on 08/13. We will call Dr. Huggins's office and inquire if she would check Albumin level at office appointment. Has wound care with dressing change twice daily. Morbid obesity -- BMI 55.6 Wt Readings from Last 4 Encounters: 04/30/20 (!) 159.5 kg (351 lb 11.2 oz) 09/23/19 (!) 159.7 kg (352 lb) 09/11/19 (!) 160 kg (352 lb 12.8 oz) 07/22/19 (!) 160.8 kg (354 lb 6.4 oz) Continue to work with bariatric team on weight loss. If albumin is better, may consider decreasing protein per day from 120gm to 80gm. May help with amount of calories per day. Encouraged with patients walking/biking exercises 2-3 times a week, for about 1 hour. Lymphedema of both lower extremities Continues to use daily wraps and Flexitouch pumps. Has an aide that can assist with placement of wraps. Notes that Lymphedema wraps are not as tight as they had been, so thinks the swelling in lower legs has improved. Iron deficiency anemia, unspecified iron deficiency anemia type Due to constipation, recommend patient decrease Iron use to twice weekly. May recheck Iron levels in 3-4 months. Essential hypertension, benign BP Readings from Last 3 Encounters: 05/06/20 112/78 04/30/20 124/74 09/23/19 (!) 154/92 Blood pressure was checked last week by home visits nurse and was 120/80. Continue current medication regimen. Chronic midline thoracic back pain Possibly having increased back pain with regular exercises and underlying scoliosis. Patient may take tylenol 325-650mg 1-2 times a day. Patient mentions 1 tablet does help. Also suggested warm towel to her back in the mornings, if feels more stiff in the morning. May also use ice to back during the day to help with back pains. Consider back stretching exercises as well. Other Visit Diagnoses Hypoalbuminemia Relevant Orders Albumin level Video -Visit Details Type of service: Video Visit Video Start Time: 1313 Video End Time: 1400 Originating Location (pt. Location): Home Distant Location (provider location): Clinic Platform used for Video Visit: Chas No results found for any visits on 08/03/20. Health Maintenance Due Topic Date Due ??? ZOSTER IMMUNIZATION (1 of 2) 01/05/1996 ??? ANNUAL REVIEW OF HM ORDERS 12/27/2019 ??? MEDICARE ANNUAL WELLNESS VISIT 01/10/2020 ??? MICROALBUMIN 02/08/2020 ??? PHQ-2 07/17/2020 ??? FALL RISK ASSESSMENT 07/22/2020 Time in: 1313 Time out: 1400 Subjective Patient is complaining of mid back pain where the scoliosis is. Is now taking two tabs of Tylenol twice daily, and this helps with pain relief. States the pain is more pronounced when she gets up in the am after lying during the night. Feels that lying down causes pain. Has been having issues with constipation. Has 1-2 bowel movements daily but has to push hard to evacuate the stool. Due to having push so hard, she notes that this aggravates the umbilical hernia, and she can feel a loop of bowel protrude. The hernia is reducible at this time. Has continued to take Iron every 2-3 days. Has a rash around the dressing that is applied to ischial wound from the tape. Skin is reddened, butpatient is unable to see the area. Has resumed taking Glutamine. She was advised to take this for a specific amount of time. She is unsure why the provider had only ordered this for this time period. She had a large bottle left of the Glutamine so she has resumed taking this once daily for the past five days. Meets with the Legislators on 08/12 and she has mentioned she wants patient to decrease protein in her diet from 120 gm daily to 80 gm daily. Patient is concerned with doing this because the wound is not healing with the higher dose of protein. Meets with wound care provider on 08/13-Dr. Huggins. This will be her first visit with Dr. Huggins since completing the IV Unasyn. Patience Toussaint had talked to the Bariatric provider about weight loss surgery, and patient states thatshe was told she was too old to consider this surgery. Patient is using a stationary floor pedals and is biking one hour daily. Also trying to walk daily depending on the weather. Review of Systems Constitutional: Negative for chills and fever. Respiratory: Negative for shortness of breath. Cardiovascular: Positive for peripheral edema. Negative for chest pain. Gastrointestinal: Positive for constipation. Negative for diarrhea and hematochezia. Genitourinary: Negative for dysuria. Musculoskeletal: Positive for back pain. Psychiatric/Behavioral: The patient is not nervous/anxious. History Past Medical History: Diagnosis Date ??? [...] Date ??? CATARACT IOL, RT/LT Bilateral 2018 [facility] ??? CHOLECYSTECTOMY, OPEN 1970 ??? COLONOSCOPY [...] ??? Alcohol use: No Frequency: Never Objective There were no vitals taken for this visit. Vitals not taken due to this being a video visit. Physical Exam Pulmonary: Effort: Pulmonary effort is normal. Neurological: Mental Status: She is alert. Psychiatric: Mood and Affect: Mood normal. Thought Content: Thought content normal. Judgment: Judgment normal. Exam limited by COVID19 pandemic and video visit. I spent greater than 50% of the 47 minutes in the visit coordinating care regarding patient's recommendations towards update of chronic conditions. Return in about 16 weeks (around 11/23/2020) for using a video visit. Patient's support system: Daughter Jaiden VelmaHarpal MD Zhang [facility] ON HELPER documented in this encounter Nursing Notes Danni Marcus RN - 08/03/2020 1:00 PM CST I spoke with Dr. Huggins's nurse to notify her of need to draw the Albumin level. She didn't know the fax number for the lab. She also didn't know the phone number for the lab. I was transferred to centralized phone system. I was told by the second person I spoke with that she didn't have access to lab phone numbers either. Patient doesn't have PCP at the clinic, so is unable to have labs drawn at the clinic-will need to go to [facility] or [facility] to have labs drawn. I notified patient of inability to send order for the Albumin. Advised she can discuss with Dr. Huggins at upcoming appointment. Other option would be to have lab drawn at the [facility]. Patient will discuss with Dr. Huggins. No further questions. Will call back if any other questions or concerns. Ashli Marcus RN ON HELPER documented in this encounter Miscellaneous Notes Assessment & Plan Note - Jaiden Holcomb MD - 08/04/2020 9:40 AM SEXTON HELPER Associated Problem(s): Chronic midline thoracic back pain Possibly having increased back pain with regular exercises and underlying scoliosis. Patient may take tylenol 325-650mg 1-2 times a day. Patient mentions 1 tablet does help. Also suggested warm towel to her back in the mornings, if feels more stiff in the morning. May also use ice to back during the day to help with back pains. Consider back stretching exercises as well. ON HELPER Assessment & Plan Note - Danni Marcus RN - 08/03/2020 1:33 PM CSTAssociated Problem(s): Lymphedema of both lower extremities Continues to use daily wraps and Flexitouch pumps. Has an aide that can assist with placement of wraps. Notes that Lymphedema wraps are not as tight as they had been, so thinks the swelling in lower legs has improved. ON HELPER Assessment & Plan Note - Danni Marcus RN - 08/03/2020 1:21 PM CSTAssociated Problem(s): Umbilical hernia without obstruction and without gangrene Patient notes increased constipation. Having 1-2 stools daily but has to push hard to evacuate stool. This is causing protrusion of umbilical hernia. Hernia has been reducible. Continue Metamucil. Patient wishes to avoid a stool softener as this has interfered with keeping ischial wound dressing clean. Decrease Iron use to twice per week. ON HELPER Assessment & Plan Note - Danni Marcus RN - 08/03/2020 1:20 PM CSTAssociated Problem(s): Iron deficiency anemia, unspecified iron deficiency anemia type Due to constipation, recommend patient decrease Iron use to twice weekly. May recheck Iron levels in 3-4 months. ON HELPER Assessment & Plan Note - Danni Marcus RN - 08/03/2020 1:18 PM CSTAssociated Problem(s): Pressure ulcer of ischium, left, stage IV (H) Completed six weeks of IV Unasyn. Has follow-up with Dr. Huggins on 08/13. We will call Dr. Huggins's office and inquire if she would check Albumin level at office appointment. Has wound care with dressing change twice daily. ON HELPER Assessment & Plan Note - Danni Marcus RN - 08/03/2020 1:16 PM CSTAssociated Problem(s): Essential hypertension, benign BP Readings from Last 3 Encounters: 05/06/20 112/78 04/30/20 124/74 09/23/19 (!) 154/92 Blood pressure was checked last week by home visits nurse and was 120/80. Continue current medication regimen. ON HELPER Assessment & Plan Note - Danni Marcus RN - 08/03/2020 1:13 PM CSTAssociated Problem(s): Morbid obesity -- BMI 55-60 Wt Readings from Last 4 Encounters: 04/30/20 (!) 159.5 kg (351 lb 11.2 oz) 09/23/19 (!) 159.7 kg (352 lb) 09/11/19 (!) 160 kg (352 lb 12.8 oz) 07/22/19 (!) 160.8 kg (354 lb 6.4 oz) Continue to work with bariatric team on weight loss. If albumin is better, may consider decreasing protein per day from 120gm to 80gm. May help with amount of calories per day. Encouraged with patients walking/biking exercises 2-3 times a week, for about 1 hour. ON HELPER documented in this encounter Plan of Treatment Upcoming Encounters Date Type Specialty Care Team Description 11/15/2022 Virtual Visit Pharm Haylie Gonzalez, [facility] [address] [facility] [place] [address] (Lena max) 11/15/2022 Virtual Visit [place] [address] [place] [address] [place] [address] (Lena max) 03/03/2023 Virtual Visit Neurology Erlinda Barber MD [address] [facility] 295 [place] [address] (Lena max) documented as of this encounter Visit Diagnoses Diagnosis Pressure ulcer of ischium, left, stage I V (H) - Primary Morbid obesity -- BMI 55.6 Morbid obesity Essential hypertension, benign Lymphedema of both lower extremities Umbilical hernia without obstruction and without gangrene Iron deficiency anemia, unspecified iron deficiency anemia type Hypoalbuminemia Other disorders of plasma protein metabo lism Chronic midline thoracic back pain documented in this encounter Additional Health Concerns Assessment Noted Time PHQ-9 Depression Total Score: 4 04/12/2019 7:03 AM CDT documented as of this encounter Care Teams Hospital Medical Assistant Relationship Specialty Start Date End Date Jaiden Holcomb PCP - General Internal Medicine 02/13/2010/03 MD Jayesh [address] [facility] [address] [place] [phone] Chastity Montero MD Dermatology 09/23/14 [address] [facility] 98 [place], [place] [address] Johnnie Alcocer MD Surgeon General Surgery 03/23/17 [address] [facility] [facility] [address] [place] [address] Danni Marcus, CHANDLER Personal Advocate & 01/09/1901/17 Liaison (PAL) Fernando Ea Complex 04/23/19 Svetlana Osman, Pharmacist Pharmacotherapy 04/23/19 [facility] [address] [place], [place] [id number] Haylie Cheung, Pharmacist Pharmacist 09/11/19 [place] [address] [place] [address] Opal, Assigned Sleep 05/08/20 03/27/21 Kendall Meehan MD Provider [address] [place], [place] [address] Erlinda Barber MD Assigned Neuroscience 05/08/20 01/26/21 [address] [facility] [address] Provider [place], [place] [address] Jaiden Holcomb Assigned PCP 05/24/20 MD Jayesh [address] [place], [place] [address] documented as of this encounter
--- OUTSIDE RECORDS SUMMARY | 2022-06-15 12:49 | XMS_ITS | Encounter Summary ---
:1945 Author Organization [place] Address [address] [place] [address] Care Team Providers Name Role Phone Chastity Monteor MD Unavailable [phone] Johnnie Alcocer MD Unavailable Danni Marcus RN Unavailable Unavailable Mtm, Ea Complex Unavailable Unavailable Svetlana Osman [facility] Unavailable [phone] Haylie Cheung [facility] Unavailable [phone] Jaiden Holcomb MD Primary Care Provider [phone] Kendall Joseph MD Unavailable Erlinda Barber MD Unavailable Jaiden Holcomb MD Unavailable Encounter Details Date Type Department Care Team Description 08/11/2020 Anticoagulation Therapy [facility] Zhang, 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 embolism; Visit Clinic Yarelis Hwang Paroxysmal atrial fibrillati on (H); [address] MD Jayesh long-term current use of anticoagulant t [facility] [address] [place] [address] 200 [facility] [address] Social History Tobacco Use [...] documented as of this encounter Progress Notes Maria Teresa Pinzon RN - 08/11/2020 3:36 PM CST ANTICOAGULATION MANAGEMENT Patient Name: Charlette Brush Date: 08/11/2020 ASSESSMENT /SUBJECTIVE: Today's INR result of 2.2 is therapeutic. Goal INR of 2.0-3.0 ??? [...] nurse/facility to recheck Education provided: None required Juanita verbalizes understanding and agrees to warfarin dosing plan. Instructed to call the Anticoagulation Clinic for any changes, questions or concerns. 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 Anticoagulation Care Providers Provider Role Specialty Phone number Galdino Valdez MD Referring Family Medicine [phone] [facility] Responsible Internal Medicine [phone] NEYMAN PAINTER documented in this encounter Plan of Treatment Upcoming Encounters Date Type Specialty Care Team Description 11/15/2022 Virtual Visit Pharm D Haylie Cheung, [facility] [address] [facility] [address] (Wo winter) 11/15/2022 Virtual Visit IM/Peds Yane Barraza MD [address] [facility] [place] [address] (Lena max) 03/03/2023 Virtual Visit Neurology Erlinda Barber MD 420 [facility] 295 [place] [address] (Lena max) documented as of this encounter Procedures Procedure Name Priority Date/Time Associated Diagnosis Comme nts INR Routine 08/11/2020 Results for thi s procedure are in the resu lts section. documented in this encounter Results (ABNORMAL) INR (08/11/2020) P athologist Signature INR 2.2 (A) 0.90 - 1.10 EXTERNAL LAB Specimen (Source) Anatomical Location Collection Method / Collectio n Time Received Time / Laterality Volume Blood specimen 08/11/2020 (specimen) Resulting Agency Comment Home care Patient Reported LAB - BLOOD ORDERABLES Performing Organization Address City/State/ZIP Code Phon e Number EXTERNAL LAB EXTERNAL LAB External Lab documented in this encounter Visit Diagnoses Diagnosis 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 embolism Paroxysmal atrial fibrillation (H) Atrial fibrillation oil heaterman current use of anticoagulant t herapy documented in this encounter Additional Health Concerns Assessment Noted Time PHQ-9 Depression Total Score: 4 04/12/2019 7:03 AM CDT documented as of this encounter Care Teams Construction Code Administrator Relationship Specialty Start Date End Date Jaiden Holcomb PCP - General Internal Medicine 02/13/2010/03 MD Jayesh [address] [facility] [address] [place], [place] [phone] Chastity Montero MD Dermatology 09/23/[address] [place] [address] 98 [place], [place] [address] Johnnie Alcocer MD Surgeon General Surgery 03/23/17 [address] [facility] [address] [place] [address] Danni Marcus, CHANDLER Personal Advocate & 01/09/1901/17 Liaison (PAL) Fernando, Ea Complex 04/23/19 Svetlana Osman, Pharmacist Pharmacotherapy 04/23/19 [facility] [address] [place], [place] [phone] Haylie Cheung, Pharmacist Pharmacist 09/11/19 [facility] [address] [place], [place] [id number] Opal, Assigned Sleep 05/08/20 03/27/21 Kendall Meehan MD Provider [address] [place] [address] Erlinda Barber MD Assigned Neuroscience 05/08/20 01/26/21 420 [facility] 295 [place] [address] Jaiden Holcomb Assigned PCP 05/24/20 MD Jayesh 909 [place] [address] documented as of this encounter
--- OUTSIDE RECORDS SUMMARY | 2022-06-15 12:49 | XMS_ITS | Encounter Summary ---
:1945 Author Organization [facility] Address [address] [place] [address] Care Team Providers Name Role Phone Chastity Montero MD Unavailable [phone] Johnnie Alcocer MD Unavailable Danni Marcus RN Unavailable Unavailable Mtm, Ea Complex Unavailable Unavailable Svetlana Osman [facility] Unavailable [phone] Haylie Cheung [facility] Unavailable [phone] Jaiden Holcomb MD Primary Care Provider [phone] Kendall Joseph MD Unavailable Erlinda Barber MD Unavailable Jaiden Holcomb MD Unavailable Encounter Details Date Type Department Care Team Description 06/30/2020 Anticoagulation Therapy [facility] Zhang, 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 embolism; Visit Clinic Yarelis Hwang Paroxysmal atrial fibrillati on (H); [address] MD Jayesh halfway current use of anticoagulant t [facility] [address] [place] [address] 200 [facility] [phone] Social History Tobacco Use [...] contact Unable to assess 06/15/2020 12:38 PM DERMATOLOGIST MANAGING PARTNER with someone who was confirmed or suspected to have Coronavirus / COVID-19? documented as of this encounter Progress Notes Nicola Wagner RN - 06/30/2020 2:37 PM CST ANTICOAGULATION MANAGEMENT Patient Name: Charlette Brush Date: 06/30/2020 ASSESSMENT /SUBJECTIVE: Today's INR result of 2.6 is therapeutic. Goal INR of 2.0-3.0 ??? Warfarin dose taken: Warfarin taken as instructed ??? Diet: No new diet changes affecting INR ??? Medication changes/ interactions: No new medications/supplements affecting INR. Stopped Unasyn 06/20 ??? Previous INR: Therapeutic ??? S/S of bleeding or thromboembolism: No: ??? New injury or illness: No ??? Upcoming surgery, procedure or cardioversion: No ??? Additional findings: None PLAN: Telephone call with home care nurse Juanita regarding INR result and instructed: Warfarin Dosing Instructions: Continue your current warfarin dose 10 mg Instructed patient to follow up no later than: 2 weeks Orders given to Homecare nurse/facility to recheck Education provided: Target INR goal and significance of current INR result and Potential interactionbetween warfarin and Unasyn Juanita verbalizes understanding and agrees to warfarin dosing plan. Instructed to call the Anticoagulation Clinic for any changes, questions or concerns. (#[phone]) Nicola Wagner RN OBJECTIVE: Recent labs: (last 7 days) 06/30/20 INR 2.6* No question data found. 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 Anticoagulation Care Providers Provider Role Specialty Phone number Galdino Valdez MD Referring Family Medicine [phone] [facility] Responsible Internal Medicine [phone] ATOLOGIST MANAGING PARTNER documented in this encounter Plan of Treatment Upcoming Encounters Date Type Specialty Care Team Description 11/15/2022 Virtual Visit Pharm D Haylie Cheung, [facility] [address] [facility] [place] [address] (Lena amx) 11/15/2022 Virtual Visit IM/Yane Mathias MD [address] [facility] [place] [address] (Lena max) 03/03/2023 Virtual Visit Neurology Erlinda Barber MD [address] [facility] 295 [place] [address] (Wo rk) documented as of this encounter Procedures Procedure Name Priority Date/Time Associated Diagnosis Comme nts INR Routine 06/30/2020 Results for thi s procedure are in the resu lts section. documented in this encounter Results (ABNORMAL) INR (06/30/2020) P athologist Signature INR 2.6 (A) 0.90 - 1.10 EXTERNAL LAB Specimen (Source) Anatomical Location Collection Method / Collectio n Time Received Time / Laterality Volume Blood specimen 06/30/2020 (specimen) Resulting Agency Comment Bhavik Patient Reported LAB - BLOOD ORDERABLES Performing Organization Address City/State/ZIP Code Phon e Number EXTERNAL LAB EXTERNAL LAB External Lab documented in this encounter Visit Diagnoses Diagnosis 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 embolism Paroxysmal atrial fibrillation (H) Atrial fibrillation halfway current use of anticoagulant t herapy documented in this encounter Additional Health Concerns Assessment Noted Time PHQ-9 Depression Total Score: 4 04/12/2019 7:03 AM CDT documented as of this encounter Care Teams Metal Inspector Relationship Specialty Start Date End Date Jaiden Holcomb PCP - General Internal Medicine 02/13/2010/03 MD Jayesh [address] [facility] [address] [place] [phone] Chastity Montero MD Dermatology 09/23/[address] [place] [address] 98 [place], [place] [phone] Johnnie Alcocer MD Surgeon General Surgery 03/23/[address] [place] [address] Danni Marcus, CHANDLER Personal Advocate & 01/09/1901/17 Liaison (PAL) [place], Ea Complex 04/23/19 Svetlana Osman, Pharmacist Pharmacotherapy 04/23/19 [facility] [address] [facility] [address] [place] [phone] Haylie Cheung, Pharmacist Pharmacist 09/11/19 [facility] [address] [facility] [place] [phone] Opal, Assigned Sleep 05/08/20 03/27/21 Kendall Meehan MD Provider [address] [place] [address] [place], [place] [address] Erlinda Barber MD Assigned Neuroscience 05/08/20 01/26/21 [address] [facility] 295 [place] [address] Jaiden Holcomb Assigned PCP 05/24/20 MD Jayesh [address] [place], [place] [phone] documented as of this encounter
--- OUTSIDE RECORDS SUMMARY | 2022-06-15 12:50 | XMS_ITS | Encounter Summary ---
:1945 Author Organization [facility] Address [address] [place] [address] Care Team Providers Name Role Phone Chastity Montero MD Unavailable [phone] Johnnie Alcocer MD Unavailable Danni Marcus RN Unavailable Unavailable Mtm, Ea Complex Unavailable Unavailable Svetlana Osman [facility] Unavailable [phone] Haylie Cheung [facility] Unavailable [phone] Jaiden Holcomb MD Primary Care Provider [phone] Kendall Joseph MD Unavailable Erlinda Barber MD Unavailable Jaiden Holcomb MD Unavailable [phone] Encounter Details Date Type Department Care Team Description 06/15/2020 Travel Social History Tobacco Use Types Packs/Day [...] contact Unable to assess 06/15/2020 12:38 PM 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 documented as of this encounter Plan of Treatment Upcoming Encounters Date Type Specialty Care Team Description 11/15/2022 Virtual Visit Pharm Haylie Gonzalez, [facility] [address] [facility] [place] [phone] (Wo rk) 11/15/2022 Virtual Visit IM/Yane Mathias MD [address] [place] [address] [place] [phone] (Wo rk) 03/03/2023 Virtual Visit Neurology Erlinda Barber MD [address] [place] [address] 295 [place], [place] [address] (Wo rk) documented as of this encounter Visit Diagnoses Not on filedocumented in this encounter Additional Health Concerns Assessment Noted Time PHQ-9 Depression Total Score: 4 04/12/2019 7:03 AM CDT documented as of this encounter Care Teams Construction Site Crossing Guard Relationship Specialty Start Date End Date Jaiden Holcomb PCP - General Internal Medicine 02/13/2010/03 MD Jayesh [address] [place] [address] [place] [phone] Chastity Montero MD Dermatology 09/23/[address] [place] [address] 98 [place], [place] [address] Johnnie Alcocer MD Surgeon General Surgery 03/23/[address] [place] [address] Danni Marcus, RN Personal Advocate & 01/09/1901/17 Liaison (PAL) Mtkinsey, Ea Complex 04/23/19 Svetlana Osman, Pharmacist Pharmacotherapy 04/23/19 [facility] [address] [place] [address] Haylie Cheugn, Pharmacist Pharmacist 09/11/19 [facility] [address] [place] [address] Opal, Assigned Sleep 05/08/20 03/27/21 Kendall Meehan MD Provider [address] [place] [address] Erlinda Barber MD Assigned Neuroscience 05/08/20 01/26/21 [address] [facility] 295 [place] [address] Jaiden Holcomb Assigned PCP 05/24/20 MD Jayesh 909 [place], [place] [phone] documented as of this encounter
--- OUTSIDE RECORDS SUMMARY | 2022-06-15 12:50 | XMS_ITS | Encounter Summary ---
:1945 Author Organization [facility] Address [address] [place] [address] Care Team Providers Name Role Phone Chastity Montero MD Unavailable [phone] Johnnie Alcocer MD Unavailable Danni Marcus RN Unavailable Unavailable Mtm, Ea Complex Unavailable Unavailable Svetlana Osman [facility] Unavailable [phone] Haylie Cheung [facility] Unavailable [phone] Jaiden Holcomb MD Primary Care Provider [phone] Kendall Joseph MD Unavailable Erlinda Barber MD Unavailable Jaiden Holcomb MD Unavailable [phone] Ruth John MD Unavailable Kajal Huggins MD Unavailable Patience Toussaint NP Unavailable Brook Sánchez MD Unavailable Yane Barraza MD Primary Care Provider Osmar Kidd MD Unavailable Erlinda Barber MD Unavailable Yane Barraza MD Primary Care Provider Lenore Alcala MD Unavailable Haylie Cheung [facility] Unavailable [phone] Gaye Patrick RN Unavailable Unavailable Michela, Kenya [employer] TRAVEL CONSULTANT Unavailable [phone] Hayley German OD Unavailable Haylie Cheung [facility] Unavailable [phone] Reason for Visit Reason Comments Medication Refill Encounter Details Date Type Department Care Team Description 06/28/2020 Refill [facility] Galdino Valdez MD Medication Refill [place] [id number] [place] [address] [place] [address] [place], [place] [address] [phone] Social History Tobacco Use Types Packs/Day Years [...] contact Unable to assess 06/15/2020 12:38 PM STICK WELDER with someone who was confirmed or suspected to have Coronavirus / COVID-19? documented as of this encounter Miscellaneous Notes Telephone Encounter - Danni Marcus, RN - 06/29/2020 9:28 AM CST Forwarded to [facility] nurse for review. Ashli Marcus RN K WELDER Telephone Encounter - Amelia Richardson RN - 06/29/2020 9:19 AM CST Please address. Amelia Richardson RN on 06/29/2020 at 9:19 AM K WELDER documented in this encounter Plan of Treatment Upcoming Encounters Date Type Specialty Care Team Description 11/15/2022 Virtual Visit Pharm Haylie Gonzalez, [facility] 14[address] [facility] [place] [id number] (Wo rk) 11/15/2022 Virtual Visit IM/Peds Yane Barraza MD [address] [place] [address] [place] [phone] (Wo rk) 03/03/2023 Virtual Visit Neurology Erlinda Barber MD 420 [facility] 295 [place], [place] [address] (Wo rk) documented as of this encounter Visit Diagnoses Diagnosis 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 embolism [facility] current use of anticoagulant t herapy documented in this encounter Additional Health Concerns Assessment Noted Time PHQ-9 Depression Total Score: 4 04/12/2019 7:03 AM CDT documented as of this encounter Care Teams Spinning Machine Operator Relationship Specialty Start Date End Date Jaiden Holcomb PCP - General Internal Medicine 02/13/2010/03 MD Jayesh [address] [place] [address] [place] [phone] Yane Barraza MD PCP - General Internal Medicine 10/04/21 12/07/[address] [place] [address] [place] [phone] Yane Barraza MD PCP - General Internal Medicine 12/08/[address] [facility] [address] [place], [place] [phone] Chastity Montero MD Dermatology 09/23/14 [place] 420 [facility] 98 [place], [place] [address] Johnnie Alcocer MD Surgeon General Surgery 03/23/[address] [place], [place] [phone] Danni Marcus, CHANDLER Personal Advocate & 01/09/1901/17 Liaison (PAL) Fernando, Ea Complex 04/23/19 Svetlana Osman, Pharmacist Pharmacotherapy 04/23/19 [facility] [address] [place], [place] [phone] Haylie Cheung, Pharmacist Pharmacist 09/11/19 [facility] [address] [place] [place], [place] [phone] Opal, Assigned Sleep 05/08/20 03/27/21 Kendall Meehan MD Provider [address] [facility] 106 [place], [place] [address] Erlinda Barber MD Assigned Neuroscience 05/08/20 01/26/21 420 [facility] 295 Provider [place], [place] [address] Jaiden Holcomb Assigned PCP 05/24/20 MD Jayesh 909 [facility], [place] [phone] Ruth John MD Assigned Infectious 01/29/21 07/03/21 [facility]ECT[facility] Disease Provider [facility] [address] [place] [address] 245 [place], [place] [phone] Kajal Huggins MD Assigned Neuroscience 01/29/21 10/23/21 [address] [facility] [address] Provider [address] [place], [place] [phone] Patience Toussaint NP Assigned Surgical 01/29/21 02/11/22 29[address] [facility] Provider [address] [place], [place] [phone] Brook Sánchez MD Assigned Infectious 07/04/21 [address] [facility] SE Disease Provider [place], [place] [address] Osmar Kidd MD Assigned Sleep 09/26/[address] [place] [address] Erlinda Barber MD Assigned Neuroscience 10/24/21 [address] [facility] [address] [facility] [address] Provider [place], [place] [address] Lenore Alcala MD Assigned Heart and 12/18/21 01/21/[address] [place] Vascular Provider [address] [place] [address] Haylie Cheung, Assigned MTM 01/08/22 [facility] Pharmacist [address] [facility] [address] [place] [phone] Gaye Patrick, RN Personal Advocate & 01/18/22 Liaison (PAL) Kenya Abernathy APRN Assigned Heart and 01/22/22 CORPORATE TRAVEL CONSULTANT Vascular Provider [address] [place] [address] Hayley German, Assigned Surgical 02/12/22 [place] Provider [address] [facility] [address] [place], [place] [address] Haylie Cheung, Assigned MTM 04/13/22 [facility] Pharmacist [address] [place] [address] DR [place], [place] [phone] documented as of this encounter
--- OUTSIDE RECORDS SUMMARY | 2022-06-15 12:50 | XMS_ITS | Encounter Summary ---
:1945 Author Organization [place] Address [address] [place] [address] Care Team Providers Name Role Phone Chastity Montero MD Unavailable [phone] Johnnie Alcocer MD Unavailable Danni Marcus RN Unavailable Unavailable Mtm, Ea Complex Unavailable Unavailable Svetlana Osman [facility] Unavailable [phone] Haylie Cheung [facility] Unavailable [phone] Jaiden Holcomb MD Primary Care Provider [phone] Kendall Joseph MD Unavailable Erlinda Barber MD Unavailable Jaiden Holcomb MD Unavailable Reason for Visit Reason Comments Other buttocks ulcer Encounter Details Date Type Department Care Team Description 06/22/2020 Office Visit - [facility] Patience Toussaint NP Pressure injury of left ischium, stage 4 (H); [facility] [place] [address] Chronic os teomyelitis, pelvis, left (H); [facility] Morbid obesity with BMI of 50.0-59.9, ad ult (H); [facility] [place] [address] Lymphedema of both lower extremities; [place] [address] [place], [place] Venous hypertension of lower extremity, bilateral; [place] [address] Leg swelling [id number] Social History Tobacco Use Types Packs/Day Years [...] Sign Reading Time Taken Comments Blood Pressure 132/78 06/22/2020 2:48 PM COMPLAINT COORDINATOR Pulse 60 06/22/2020 2:48 PM COMPLAINT COORDINATOR Temperature 36.7 ??C (98.1 ??F) 06/22/2020 2:48 PM COMPLAINT COORDINATOR Respiratory Rate 20 06/22/2020 2:48 PM COMPLAINT COORDINATOR Oxygen Saturation - - Inhaled Oxygen Concentration - - Weight - - Height - - Body Mass Index - - documented in this encounter Progress Notes Patience Toussaint NP - 06/22/2020 2:40 PM CST Images from the original note were not included. Progress Notes by Patience Toussaint NP at 06/22/2020 2:40 PM Author: Mobridge, Patience A., COMPUTER SCIENCES PROFESSOR Service: -- Author Type: Nurse Practitioner Filed: 06/22/2020 3:27 PM Encounter Date: 06/22/2020 Status: Signed Sous Chef: Patience Toussaint NP (Nurse Practitioner) Follow up Vascular Visit Date of Service:06/22/2020 Date Last Seen: 05/18/2020; 05/18/2020 Chief Complaint: left IT pressure injury Pt returns to [facility] with regards to their left IT. They arrive today alone. They are currently using calcium alginate covered with bordered foam to the wounds. She has 2 home care agencies assisting with this daily treatment; [facility] and [facility] care. They are havingto use addition adhesive to secure the dressing and this is causing skin reactions. She recently sawID Dr. John for her recurrent osteomyelitis; she has completed 6 week course of IV Unasyn; tolerated this well. She is working with bariatrics; she is too high risk for surgery; she is declining medications to help with weight loss as she states these are for cravings and she is not having cravings; she is working with a registered medical assistant. They are using velcro for compression. They are feeling well today. Denies fevers, chills. No shortness of breath. She has seen x2 surgeons about flap closurethey do not want to move forward due to her high risk and weight. Allergies: Cephalexin, Ciprofloxacin, Clindamycin, Lanolin, Lisinopril, Mupirocin, [...] times a day., Disp: , Rfl: ? cetirizine (ZYRTEC) 10 [...] mg by mouth., Disp: , Rfl: ? hydroCHLOROthiazide (HYDRODIURIL) 12.5 [...] by mouth daily., Disp: , Rfl: ? nhrofamchtlf-xlzgmoux-gnekzv (CEROVITE SENIOR) tablet, Take 1 tablet by [...] ? zinc gluconate 50 mg tablet, Take daily for 2 weeks, then reduce to every other day use until bottle runs out., Disp: 50 tablet, Rfl: 0 Current Facility-Administered Medications: ? [...] Patient has appointment with Retina Specialist at [facility] on 01/11. Patient reports she was unable to get her [place] driver's license due to not passing eye [...] & Plan: Appointment with Retina Specialist at [facility] on 01/11/19. ? Morbid obesity (H) [...] Referral placed for Dr. Kajal Huggins at [facility] in [place] per patient request. She has contact i [...] Weakness left lower limb Physical Exam: BP 132/78 Pulse 60 Temp 98.1 ??F (36.7 ??C) Resp 20 General: Patient presents to clinic in no apparent distress. Head: normocephalic atraumatic Psychiatric: Alert and oriented x3. Respiratory: unlabored breathing; no cough Integumentary: Skin is uniformly warm, dry and pink. Wound #1 Location: left IT Size: 7L x 4W x 6.5depth (positional). No sinus tract present, Wound base: slough No undermining present. Wound is full thickness. There is heavy drainage. Periwound: no denudement, erythema, induration, maceration or warmth. Circumferential volume measures: No flowsheet data found. Ulceration(s)/Wound(s): VASC Wound 05/15/19 Buttocks (Active) Pre Size Length 7 06/22/20 1400 Pre Size Width 4 06/22/20 1400 Pre Size Depth 6.5 06/22/20 1400 Pre Total Sq cm 28 06/22/20 1400 Post Size Length 8.5 04/21/20 1400 Post Size Width 4.7 04/21/20 1400 Post Size Depth 7 04/21/20 1400 Post Total Sq cm 39.95 04/21/20 1400 Undermined no 12/12/19 0900 Tunneling no 12/12/19 0900 Description red, arango, macerated 04/21/20 1400 Prodcut Used Negative pressure 04/21/20 1400 VASC Wound 03/24/20 Lt great toe (Active) Pre Size Length 0.2 03/24/20 1100 Pre Size Width 0.3 03/24/20 1100 Pre Size Depth 0.1 03/24/20 1100 Pre Total Sq cm 0.06 03/24/20 1100 Lab Values Lab Results Component Value Date [...] obesity with BMI of 50.0-59.9, adult (H) 4. Lymphedema of both lower extremities 5. Venous hypertension of lower extremity, bilateral 6. Leg swelling 06/09/2020 left IT Are any of these wounds [...] decrease edge senescence. Total excisional debridement was 28 sq cm from the epidermis/dermis area, into the subcutaneous tissue and into the muscle/fascia with a depth of 6.5 cm. Ulcers were improved afterwards and cleaner and polisher. Measures were unchanged after debridement. 2. Wound treatment: wound treatment will include irrigation and dressings to promote autolytic debridement which will include:will continue with daily wound care; her vac is no longer covered by insurance as she has exhausted the length of use; the prognosis is poor for wound healing; will continue with palliative plan; continue with alginate; bordered foam; change daily; continue home care Stable 3. Edema: continue with velcro wraps. The compression wraps were applied today in clinic. Stable 4. Nutrition: continue to work with bariatrics; not a surgical candidate; does not want medications; 5. Offloading: has roho cushion; needs to stay off the wound Patient will follow up with Dr. Huggins in 4 weeks for reevaluation; I can see in 8 weeks. They were instructed to call the clinic sooner with any signs or symptoms of infection or any further questions/concerns. Answered all questions. Patience Toussaint DNP, RN, CAP MAKER, CWOCN, CFCN, CLT [facility] [phone] This note was electronically signed by Patience Toussaint LAINT COORDINATOR documented in this encounter Miscellaneous Notes Patient Instructions - HE - Patience Toussaint COMPUTER SCIENCES PROFESSOR - 06/22/2020 2:40 PM CST We will fax orders to [facility] home correction care to order supplies Wound Care Instructions daily aides and/or nursing to Cleanse your left buttocks wound(s) with Dilute hibiclens 30cc in 500cc NS Pat Dry with non-sterile gauze Apply skin prep to skin surrounding the wound Apply plain calcium alginate or hydrofiber into/onto the wounds Cover with either tegaderm + pad (#[id number] 7.5x8 /) or bordered foam dressing such as mepilex sacral dressing Compression: velcro wraps bilaterally It is ok to get your wound wet in the bath or shower; shower just prior to wound cares I will send bariatrics a message about your wounds SEEK MEDICAL CARE IF: ?? You have an increase in swelling, pain, or redness around the wound. ?? You have an increase in the amount of pus coming from the wound. ?? There is a bad smell coming from the wound. ?? The wound appears to be worsening/enlarging ?? You have a fever greater than 101.5 F It is ok to continue current wound care treatment/products for the next 2-3 days until new wound care supplies are ordered and arrive. If longer than this please contact our office at [phone]. Patience Toussaint DNP, RN, CAP MAKER, [facility] [phone] LAINT COORDINATOR documented in this encounter Plan of Treatment Upcoming Encounters Date Type Specialty Care Team Description 11/15/2022 Virtual Visit Pharm D Haylie Cheung, [facility] [address] [facility] [place] [address] (Wo winter) 11/15/2022 Virtual Visit [place] [address] [place] [address] [place] [id number] (Wo winter) 03/03/2023 Virtual Visit Neurology Erlinda Barber MD [address] [facility] [address] [place] [address] (Wo winter) documented as of this encounter Visit Diagnoses Diagnosis Pressure injury of left ischium, stage 4 (H) Chronic osteomyelitis, pelvis, left (H) Morbid obesity with BMI of 50.0-59.9, ad ult (H) Lymphedema of both lower extremities Venous hypertension of lower extremity, bilateral Leg swelling Swelling of limb documented in this encounter Additional Health Concerns Assessment Noted Time PHQ-9 Depression Total Score: 4 04/12/2019 7:03 AM CDT documented as of this encounter Care Teams Supervisor Filling And Packing Relationship Specialty Start Date End Date Jaiden Holcomb PCP - General Internal Medicine 02/13/2010/03 MD Jayesh [address] [place] [address] [place] [id number] Chastity Montero MD Dermatology 09/23/14 [address] [facility] 98 [place], [place] [phone] Johnnie Alcocer MD Surgeon General Surgery 03/23/[address] [place], [place] [address] Danni Marcus, RN Personal Advocate & 01/09/1901/17 Liaison (PAL) Fernando, Ea Complex 04/23/19 Svetlana Osman, Pharmacist Pharmacotherapy 04/23/19 [place] [address] [place] [address] Haylie Cheung, Pharmacist Pharmacist 09/11/19 [place] [address] [place], [place] [id number] Opal, Assigned Sleep 05/08/20 03/27/21 Kendall Meehan MD Provider [address] [email or web address] [address] [place], [place] [address] Erlinda Barber MD Assigned Neuroscience 05/08/20 01/26/21 [address] [facility] 295 [place] [address] Jaiden Holcomb Assigned PCP 05/24/20 MD Jayesh 9[address] [place], [place] [id number] documented as of this encounter
--- OUTSIDE RECORDS SUMMARY | 2022-06-15 12:50 | XMS_ITS | Encounter Summary ---
:1945 Author Organization [place] Address [address] [facility] [place] [address] Care Team Providers Name Role Phone Chastity Montero MD Unavailable [phone] Johnnie Alcocer MD Unavailable Danni Marcus RN Unavailable Unavailable Mtm, Ea Complex Unavailable Unavailable Svetlana Osman [facility] Unavailable [phone] Haylie Cheung [facility] Unavailable [phone] Jaiden Holcomb MD Primary Care Provider [phone] Kendall Joseph MD Unavailable Erlinda Barber MD Unavailable Jaiden Holcomb MD Unavailable Encounter Details Date Type Department Care Team Description 06/18/2020 Home Infusion [facility] Reva Galvez, [facility] [address] [place], [place] [phone] 458 [facility] [phone] [place] [address] (Wo rk) Social History Tobacco [...] More than 4 times per year 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 Do you belong to any clubs [...] contact Unable to assess 06/15/2020 12:38 PM ROOF FITTER with someone who was confirmed or suspected to have Coronavirus / COVID-19? documented as of this encounter Progress Notes Yelena Meier - 06/18/2020 11:59 PM CST This is a recent snapshot of the patient's [facility] medical record. For current drug dose and complete information and questions, call [phone] or In [facility] ([id number]) CSN Number: [id number] FITTER documented in this encounter Plan of Treatment Upcoming Encounters Date Type Specialty Care Team Description 11/15/2022 Virtual Visit Pharm D Haylie Cheung, [facility] [address] [facility] [place] [address] (Wo winter) 11/15/2022 Virtual Visit IM/Peds Yane Barraza MD [address] [facility] [place] [address] (Wo rk) 03/03/2023 Virtual Visit Neurology Erlinda Barber MD [address] [facility] [address] [place], [place] [address] (Wo rk) documented as of this encounter Visit Diagnoses Not on filedocumented in this encounter Additional Health Concerns Assessment Noted Time PHQ-9 Depression Total Score: 4 04/12/2019 7:03 AM CDT documented as of this encounter Care Teams Chocolate Production Machine Operator Relationship Specialty Start Date End Date Jaiden Holcomb PCP - General Internal Medicine 02/13/2010/03 MD Jayesh [address] [facility] [address] [place] [id number] Chastity Montero MD Dermatology 09/23/[address] [place] [address] 98 [place], [place] [address] Johnnie Alcocer MD Surgeon General Surgery 03/23/17 [address] [facility] [address] [place], [place] [phone] Danni Marcus, CHANDLER Personal Advocate & 01/09/1901/17 Liaison (PAL) Fernando, Ea Complex 04/23/19 Svetlana Osman, Pharmacist Pharmacotherapy 04/23/19 [facility] [address] [place] [address] Haylie Cheung, Pharmacist Pharmacist 09/11/19 [place] [address] [place] [address] Opal, Assigned Sleep 05/08/20 03/27/21 Kendall Meehan MD Provider [address] [place], [place] [address] Erlinda Barber MD Assigned Neuroscience 05/08/20 01/26/21 [address] [facility] 295 Provider [place], [place] [address] Jaiden Holcomb Assigned PCP 05/24/20 MD Jayesh 909 [place] [address] documented as of this encounter
--- OUTSIDE RECORDS SUMMARY | 2022-06-15 12:50 | XMS_ITS | Encounter Summary ---
:1945 Author Organization [place] Address [address] [facility] [place] [address] Care Team Providers Name Role Phone Chastity Montero MD Unavailable [phone] Johnnie Alcocer MD Unavailable Danni Marcus RN Unavailable Unavailable Mtm, Ea Complex Unavailable Unavailable Svetlana Osman [facility] Unavailable [phone] Haylie Cheung [facility] Unavailable [phone] Jaiden Holcomb MD Primary Care Provider [phone] Kendall Joseph MD Unavailable Erlinda Barber MD Unavailable Jaiden Holcomb MD Unavailable Encounter Details Date Type Department Care Team Description 06/17/2020 Home Infusion [facility] Reva Galvez, [facility] [address] [place], [place] [phone] 675 [facility] [phone] [place] [address] (Wo rk) Social History Tobacco [...] contact Unable to assess 06/15/2020 12:38 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 documented as of this encounter Progress Notes Yelena Meier - 06/17/2020 11:59 PM CST This is a recent snapshot of the patient's [facility] medical record. For current drug dose and complete information and questions, call [phone] or In [employer] [facility] ([id number]) CSN Number: [id number] TROCARDIOGRAPH TECHNICIAN documented in this encounter Plan of Treatment Upcoming Encounters Date Type Specialty Care Team Description 11/15/2022 Virtual Visit Pharm D Haylie Cheung, [facility] [address] [facility] [place] [address] (Wo winter) 11/15/2022 Virtual Visit IM/Peds Yane Barraza MD [address] [facility] [place] [address] (Wo winter) 03/03/2023 Virtual Visit Neurology Erlinda Barber MD 420 [facility] 295 [place], [place] [address] (Wo rk) documented as of this encounter Visit Diagnoses Not on filedocumented in this encounter Additional Health Concerns Assessment Noted Time PHQ-9 Depression Total Score: 4 04/12/2019 7:03 AM CDT documented as of this encounter Care Teams Inside Barrel Lathe Operator Relationship Specialty Start Date End Date Jaiden Holcomb PCP - General Internal Medicine 02/13/2010/03 MD Jayesh [address] [facility] [address] [place] [id number] Chastity Montero MD Dermatology 09/23/[address] [place] [address] 98 [place], [place] [address] Johnnie Alcocer MD Surgeon General Surgery 03/23/17 [address] [facility] [address] [place], [place] [phone] Danni Marcus, CHANDLER Personal Advocate & 01/09/1901/17 Liaison (PAL) Fernando, Ea Complex 04/23/19 Svetlana Osman, Pharmacist Pharmacotherapy 04/23/19 [facility] [address] [place] [address] Haylie Cheung, Pharmacist Pharmacist 09/11/19 [place] [address] [place] [address] Opal, Assigned Sleep 05/08/20 03/27/21 Kendall Meehan MD Provider [address] [place], [place] [address] Erlinda Barber MD Assigned Neuroscience 05/08/20 01/26/21 420 [facility] [address] Provider [place], [place] [address] Jaiden Holcomb Assigned PCP 05/24/20 MD Jayesh 909 [place] [address] documented as of this encounter
--- OUTSIDE RECORDS SUMMARY | 2022-06-15 12:50 | XMS_ITS | Encounter Summary ---
:1945 Author Organization [place] Address [address] [place] [address] Care Team Providers Name Role Phone Chastity Montero MD Unavailable [phone] Johnnie Alcocer MD Unavailable Danni Marcus RN Unavailable Unavailable Mtm, Ea Complex Unavailable Unavailable Svetlana Osman [facility] Unavailable [phone] Haylie Cheung [facility] Unavailable [phone] Jaiden Holcomb MD Primary Care Provider [phone] Kendall Joseph MD Unavailable Erlinda Barber MD Unavailable Jaiden Holcomb MD Unavailable [phone] Encounter Details Date Type Department Care Team Description 06/16/2020 Anticoagulation Therapy [facility] Zhang, 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 embolism; Visit Clinic Yarelis Hwang Paroxysmal atrial fibrillati on (H); [address] MD Jayesh [facility] current use of anticoagulant t [facility] [address] [place] [address] 200 [facility] [phone] Social History Tobacco Use [...] contact Unable to assess 06/15/2020 12:38 PM 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 documented as of this encounter Progress Notes Sasha Rueda RN - 06/16/2020 4:15 PM CST ANTICOAGULATION MANAGEMENT Patient Name: Charlette Brush Date: 06/16/2020 ASSESSMENT /SUBJECTIVE: Today's INR result of 2.8 is therapeutic. Goal INR of 2.0-3.0 ??? [...] Continue your current warfarin dose 10 mg Daily Instructed patient to follow up no later than: 1 week Orders given to Homecare nurse/facility to recheck Education provided: Monitoring for bleeding signs and symptoms and Monitoring for clotting signs andsymptoms Juanita, Nurse verbalizes understanding and agrees to warfarin dosing plan. Instructed to call the Anticoagulation Clinic for any changes, questions or concerns. (#[phone]) Sasha Rueda RN OBJECTIVE: Recent labs: (last 7 days) 06/16/20 INR 2.8* No question data found. 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 Anticoagulation Care Providers Provider Role Specialty Phone number Galdino Valdez MD Referring Family Medicine [phone] Graham[place]ero weller MD Responsible Internal Medicine [phone] ENGER LOCOMOTIVE ENGINEER documented in this encounter Plan of Treatment Upcoming Encounters Date Type Specialty Care Team Description 11/15/2022 Virtual Visit Pharm D Haylie Cheung, [facility] [address] [facility] [place] [address] (Lena max) 11/15/2022 Virtual Visit IM/Peds Yane Barraza MD [address] [facility] [place] [address] (Lena max) 03/03/2023 Virtual Visit Neurology Erlinda Barber MD 420 [facility] 295 [place], [place] [address] (Wo rk) documented as of this encounter Procedures Procedure Name Priority Date/Time Associated Diagnosis Comme nts INR Routine 06/16/2020 Results for thi s procedure are in the resu lts section. documented in this encounter Results (ABNORMAL) INR (06/16/2020) P athologist Signature INR 2.8 (A) 0.90 - 1.10 EXTERNAL LAB Specimen (Source) Anatomical Location Collection Method / Collectio n Time Received Time / Laterality Volume Blood specimen 06/16/2020 (specimen) Resulting Agency Comment Home Care Patient Reported LAB - BLOOD ORDERABLES Performing Organization Address City/State/ZIP Code Phon e Number EXTERNAL LAB EXTERNAL LAB External Lab documented in this encounter Visit Diagnoses Diagnosis 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 embolism Paroxysmal atrial fibrillation (H) Atrial fibrillation [facility] current use of anticoagulant t herapy documented in this encounter Additional Health Concerns Assessment Noted Time PHQ-9 Depression Total Score: 4 04/12/2019 7:03 AM CDT documented as of this encounter Care Teams Train Examiner Relationship Specialty Start Date End Date Jaiden Holcomb PCP - General Internal Medicine 02/13/2010/03 MD Jayesh [facility] [facility] [address] [place] [id number] Chastity Montero MD Dermatology 09/23/14 [address] [facility] 98 [place], [place] [address] Johnnie Alcocer MD Surgeon General Surgery 03/23/[address] [place], [place] [address] Danni Marcus, CHANDLER Personal Advocate & 01/09/1901/17 Liaison (PAL) Fernando, Ea Complex 04/23/19 Svetlana Osman, Pharmacist Pharmacotherapy 04/23/19 [facility] [address] [facility] [place] [address] Haylie Cheung, Pharmacist Pharmacist 09/11/19 [facility] [address] [facility] [place] [address] Opal, Assigned Sleep 05/08/20 03/27/21 Kendall Meehan MD Provider [address] [place] [address] Erlinda Barber MD Assigned Neuroscience 05/08/20 01/26/21 420 [facility] [address] [place] [address] Jaiden Holcomb Assigned PCP 05/24/20 MD Jayesh 909 [place] [address] documented as of this encounter
--- OUTSIDE RECORDS SUMMARY | 2022-06-15 12:50 | XMS_ITS | Encounter Summary ---
:1945 Author Organization [facility] Address [address] [place] [address] Care Team Providers Name Role Phone Chastity Montero MD Unavailable [phone] Johnnie Alcocer MD Unavailable Danni Marcus RN Unavailable Unavailable Mtm, Ea Complex Unavailable Unavailable Svetlana Osman [facility] Unavailable [phone] Haylie Cheung [facility] Unavailable [phone] Jaiden Holcomb MD Primary Care Provider [phone] Kendall Joseph MD Unavailable Erlinda Barber MD Unavailable Jaiden Holcomb MD Unavailable Encounter Details Date Type Department Care Team Description 06/05/[address] 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 Do you belong to any clubs [...] you been in contact Unable to assess 05/08/2020 9:16 AM CDT with someone who was confirmed or suspected to have Coronavirus / COVID-19? documented as of this encounter Progress Notes Brie Mack, CHANDLER - 06/05/2020 4:14 PM CST Images from the original note were not included. ANTICOAGULATION MANAGEMENT Patient Name: Charlette rBush Date: 06/05/2020 ASSESSMENT /SUBJECTIVE: Today's INR result of 1.5 is subtherapeutic. Goal INR of 2.0-3.0 ??? Warfarin dose taken: Warfarin taken as instructed ??? Diet: No new diet changes affecting INR ??? Medication changes/ interactions: Continues IV ampacillin until at least 06/09 ??? Previous INR: Subtherapeutic ??? S/S of bleeding or thromboembolism: No ??? New injury or illness: No ??? Upcoming surgery, procedure or cardioversion: No ??? Additional findings: None PLAN: Telephone call with home care nurse Juanita regarding INR result and instructed: Warfarin Dosing Instructions: 15 mg today then change your warfarin dose to 10 mg daily (increase of7.7%) Instructed patient to follow up no later than: in days Orders given to Homecare nurse/facility to recheck. Note HC will also be there on 06/12 Education provided: None required Juanita verbalizes understanding and agrees to warfarin dosing plan. Instructed to call the Anticoagulation Clinic for any changes, questions or concerns. (#[phone]) Brie Mack RN OBJECTIVE: Recent labs: (last 7 days) 06/05/20 INR 1.5* No question data found. 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 Anticoagulation Care Providers Provider Role Specialty Phone number Galdino Valdez MD Referring Family Medicine [phone] [facility] Responsible Internal Medicine [phone] EL SUPERVISOR documented in this encounter Plan of Treatment Upcoming Encounters Date Type Specialty Care Team Description 11/15/2022 Virtual Visit Pharm Haylie Gonzalez, [facility] [address] [facility] [place] [address] (Lena max) 11/15/2022 Virtual Visit IM/Peds Yane Barraza MD [address] [facility] [place] [address] (Lena max) 03/03/2023 Virtual Visit Neurology Erlinda Barber MD [address] [facility] 295 [place] [address] (Lena max) documented as of this encounter Procedures Procedure Name Priority Date/Time Associated Diagnosis Comme nts INR Routine 06/05/2020 Results for thi s procedure are in the resu lts section. 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 documented in this encounter Additional Health Concerns Assessment Noted Time PHQ-9 Depression Total Score: 4 04/12/2019 7:03 AM CDT documented as of this encounter Care Teams Engineering Intern Relationship Specialty Start Date End Date Jaiden Holcomb PCP - General Internal Medicine 02/13/2010/03 MD Jayesh [address] [facility] [place] [address] Chastity Montero MD Dermatology 09/23/[address] [place] [address] 98 [place], [place] [address] Johnnie Alcocer MD Surgeon General Surgery 03/23/[address] [place] [address] Danni Marcus, CHANDLER Personal Advocate & 01/09/1901/17 Liaison (PAL) Mtkinsey, Ea Complex 04/23/19 Svetlana Osman, Pharmacist Pharmacotherapy 04/23/19 [facility] [address] [facility] [address] [place] [phone] Haylie Cheung, Pharmacist Pharmacist 09/11/19 [facility] [address] [facility] [place] [phone] Opal, Assigned Sleep 05/08/20 03/27/21 Kendall Meehan MD Provider [address] [place], [place] [phone] Erlinda Barber MD Assigned Neuroscience 05/08/20 01/26/21 [address] [facility] 295 [place] [address] Jaiden Holcomb Assigned PCP 05/24/20 MD Jayesh [address] [place], [place] [phone] documented as of this encounter
--- OUTSIDE RECORDS SUMMARY | 2022-06-15 12:50 | XMS_ITS | Encounter Summary ---
:1945 Author Organization [facility] Address [address] [place] [address] Care Team Providers Name Role Phone Chastity Montero MD Unavailable [phone] Johnnie Alcocer MD Unavailable Danni Marcus RN Unavailable Unavailable Mtm, Ea Complex Unavailable Unavailable Svetlana Osman [facility] Unavailable [phone] Haylie Cheung [facility] Unavailable [phone] Jaiden Holcomb MD Primary Care Provider [phone] Kendall Joseph MD Unavailable Erlinda Barber MD Unavailable Jaiden Holcomb MD Unavailable [phone] Encounter Details Date Type Department Care Team Description 06/29/2020 Orders Only [facility] Jaiden Holcomb DIAGN OSIS NOT YET Clinic Yarelis Mcconnell MD DEFINED (Primary Dx) [address] [place], [place] [address] [address] [place] [address] Social History Tobacco Use Types Packs/Day [...] contact Unable to assess 06/15/2020 12:38 PM CHECKER with someone who was confirmed or suspected to have Coronavirus / COVID-19? documented as of this encounter Plan of Treatment Upcoming Encounters Date Type Specialty Care Team Description 11/15/2022 Virtual Visit Pharm D Haylie Cheung, [facility] [address] [facility] [place] [address] (Wo rk) 11/15/2022 Virtual Visit IM/Peds Yane Barraza MD [address] [facility] [place] [address] (Wo rk) 03/03/2023 Virtual Visit Neurology Erlinda Barber MD [address] [facility] 295 [place] [address] (Wo rk) documented as of this encounter Procedures Procedure Name Priority Date/Time Associated Diagnosis Comme nts HI RECERTIFICATION TRANSITIONS RN CARE COORDINATOR PT Routine 06/29/2020 DIAGNOSIS NO T YET DEFINED documented in this encounter Results RECERTCANDY TRANSITIONS RN CARE COORDINATOR PT (06/29/2020) Narrative This result has an attachment that is no t available. Jaiden Holcomb MD [employer] documented in this encounter Visit Diagnoses Diagnosis DIAGNOSIS NOT YET DEFINED - Primary documented in this encounter Additional Health Concerns Assessment Noted Time PHQ-9 Depression Total Score: 4 04/12/2019 7:03 AM CDT documented as of this encounter Care Teams Tax Map Technician Relationship Specialty Start Date End Date Jaiden Holcomb PCP - General Internal Medicine 02/13/2010/03 MD Jayesh [address] [facility] [address] [place] [phone] Chastity Montero MD Dermatology 09/23/14 [address] [facility] 98 [place] [address] Johnnie Alcocer MD Surgeon General Surgery 03/23/17 [address] [facility] 300 [place], [place] [address] Danni Marcus, CHANDLER Personal Advocate & 01/09/1901/17 Liaison (PAL) Fernando, Ea Complex 04/23/19 Svetlana Osman, Pharmacist Pharmacotherapy 04/23/19 [facility] [address] [place] [address] Haylie Cheung, Pharmacist Pharmacist 09/11/19 [facility] [address] [place], [place] [phone] Opal, Assigned Sleep 05/08/20 03/27/21 eKndall Meehan MD Provider [address] [place], [place] [address] Erlinda Barber MD Assigned Neuroscience 05/08/20 01/26/21 [address] [facility] 295 [place] [address] Jaiden Holcomb Assigned PCP 05/24/20 MD Jayesh 909 [place] [address] documented as of this encounter
--- OUTSIDE RECORDS SUMMARY | 2022-06-15 12:50 | XMS_ITS | Encounter Summary ---
:1945 Author Organization [facility] Address [address] [place] [address] Care Team Providers Name Role Phone Chastity Montero MD Unavailable [phone] Johnnie Alcocer MD Unavailable Danni Marcus RN Unavailable Unavailable Mtm, Ea Complex Unavailable Unavailable Svetlana Osman [facility] Unavailable [phone] Haylie Cheung [facility] Unavailable [phone] Jaiden Holcomb MD Primary Care Provider [phone] Kendall Joseph MD Unavailable Erlinda Barber MD Unavailable Jaiden Holcomb MD Unavailable [phone] Encounter Details Date Type Department Care Team Description 06/02/2020 Records - [facility] INFECTIOUS [address] [facility] [place], [place] [address] [facility] [address] [facility] [phone] [place], [place] [address] (Wo rk) Social History Tobacco Use Types [...] D Haylie Cheung, [facility] [address] [facility] [place] [address] (Lena max) 11/15/2022 Virtual Visit IM/Peds Yane Barraza MD [address] [facility] [place] [address] (Wo winter) 03/03/2023 Virtual Visit Neurology Erlinda Barber MD [address] [facility] 295 [place] [address] (Wo winter) documented as of this encounter Procedures Procedure Name Priority Date/Time Associated Comments Diagnosis CBC WITH PLATELETS AND Routine 06/02/2020 2:30 PM Results for this DIFFERENTIAL HAIR COLORIST procedure are i n the results section. ERYTHROCYTE Routine 06/02/2020 2:30 PM Results f or this SEDIMENTATION RATE HAIR COLORIST procedure are in AUTO the results section. CRP INFLAMMATION Routine 06/02/2020 2:30 PM Resul ts for this HAIR COLORIST procedure are i n the results section. AST Routine 06/02/2020 2:30 PM Results f or this HAIR COLORIST procedure are i n the results section. BASIC METABOLIC PANEL Routine 06/02/2020 2:30 PM Results for this HAIR COLORIST procedure are i n the results section. documented in this encounter Results AST (06/02/2020 2:30 PM HAIR COLORIST) P athologist Signature AST 22 0 - 40 U/L 06/02/2020 [facility] 6:42 PM HAIR COLORIST [facility] Specimen Anatomical Collection Method Collection Time Receive d Time (Source) Location / / Volume Laterality Blood specimen Client Draw / 06/02/2020 2:30 PM 2019 5:41 (specimen) Unknown HAIR COLORIST PM HAIR COLORIST Ruth John MD LAB - BLOOD ORDERABLES Performing Organization Address [facility]/State/ZIP Code Phon [place] [address] [phone] [address] [facility] CBC WITH PLATELETS AND DIFFERENTIAL (06/02/2020 2:30 PM HAIR COLORIST) Analysis Performed At Patho logist Time Signature WBC 5.0 4.0 - 11.0 06/02/2020 [facility] thou/uL 6:06 PM [facility] RBC Count 4.62 3.80 - 06/02/2020 [facility] 5.40 6:06 PM [facility]/uL [facility] Hemoglobin 14.3 12.0 - 06/02/2020 [facility] 16.0 g/dL 6:06 PM [facility] Hematocrit 42.9 35.0 - 06/02/2020 [facility] 47.0 % 6:06 PM [facility] MCV 93 80 - 100 06/02/2020 [facility] fL 6:06 PM [facility] MCH 31.0 27.0 - 06/02/2020 [facility] 34.0 pg 6:06 PM [facility] MCHC 33.3 32.0 - 06/02/2020 [facility] 36.0 g/dL 6:06 PM [facility] RDW 13.4 11.0 - 06/02/2020 [facility] 14.5 % 6:06 PM [facility] Platelet Count 225 140 - 440 06/02/2020 [facility] thou/uL 6:06 PM [facility] Mean Platelet 10.8 8.5 - 12.5 06/02/2020 [facility] Volume fL 6:06 PM [facility] % Neutrophils 61 50 - 70 % 06/02/2020 [facility] 6:06 PM [facility] % Lymphocytes 24 20 - 40 % 06/02/2020 [facility] 6:06 PM [facility] % Monocytes 9 2 - 10 % 06/02/2020 [facility] 6:06 PM [facility] % Eosinophils 5 0 - 6 % 06/02/2020 [facility] 6:06 PM [facility] Communications[facility] % Basophils 1 0 - 2 % 06/02/2020 [facility] 6:06 PM [facility] % Immature 0 <=0 % 06/02/2020 [facility] Granulocytes 6:06 PM [facility] Absolute 3.1 2.0 - 7.7 06/02/2020 [facility] Neutrophils thou/uL 6:06 PM [facility] Absolute 1.2 0.8 - 4.4 06/02/2020 [facility]ALTH Lymphocytes thou/uL 6:06 PM HAIR COLORIST [facility] Absolute 0.5 0.0 - 0.9 06/02/2020 [facility]ALTH Monocytes thou/uL 6:06 PM HAIR COLORIST [employer] [facility] [facility] [facility] Eosinophils 0.2 0.0 - 0.4 06/02/2020 HEALTH Absolute thou/uL 6:06 PM HAIR COLORIST [facility] Absolute 0.0 0.0 - 0.2 06/02/2020 HEALTH Basophils thou/uL 6:06 PM HAIR COLORIST [facility] Absolute Immature 0.0 <=0.0 06/02/2020 HEALTH Granulocytes thou/uL 6:06 PM HAIR COLORIST [facility] Specimen Anatomical Collection Method Collection Time Receive d Time (Source) Location / / Volume Laterality Blood specimen Client Draw / 06/02/2020 2:30 PM 2019 5:41 (specimen) Unknown HAIR COLORIST PM HAIR COLORIST Ruth John MD LAB - BLOOD ORDERABLES Performing Organization Address City/State/ZIP Code Phon e [place] [address] [address] [facility] CRP inflammation (06/02/2020 2:30 PM HAIR COLORIST) P athologist Signature CRP 0.5 0.0 - 0.8 06/02/2020 [facility] mg/dL 6:44 PM HAIR COLORIST [facility] Specimen Anatomical Collection Method Collection Time Receive d Time (Source) Location / / Volume Laterality Blood specimen Client Draw / 06/02/2020 2:30 PM 2019 5:41 (specimen) Unknown HAIR COLORIST PM HAIR COLORIST Ruth John MD LAB - BLOOD ORDERABLES Performing Organization Address City/[facility]/ZIP Code Phon e Number [facility] [place] [address] [phone] [address] [address] [facility] Erythrocyte sedimentation rate auto (06/02/2020 2:30 PM HAIR COLORIST) Patholo gist Method Time Signature Erythrocyte 16 0 - 20 06/02/2020 HEALTH Sedimentation Rate mm/hr 7:16 PM HAIR COLORIST [facility] Specimen Anatomical Collection Method Collection Time Receive d Time (Source) Location / / Volume Laterality Blood specimen Client Draw / 06/02/2020 2:30 PM 2019 5:41 (specimen) Unknown HAIR COLORIST PM HAIR COLORIST Ruth John MD LAB - BLOOD ORDERABLES Performing Organization Address City/State/ZIP Code Phon [place] [address] [phone] [address] [facility] (ABNORMAL) Basic metabolic panel (06/02/2020 2:30 PM HAIR COLORIST) [facility] Method Time Signature Sodium 139 136 - 145 06/02/2020 HEALTH mmol/L 6:42 PM [facility] Potassium 4.5 3.5 - 5.0 06/02/2020 HEALTH mmol/L 6:42 PM [facility] Chloride 105 98 - 107 06/02/2020 HEALTH mmol/L 6:42 PM [facility] Carbon Dioxide 23 22 - 31 06/02/2020 HEALTH (CO2) mmol/L 6:42 PM [facility] Anion Gap 11 5 - 18 06/02/2020 HEALTH mmol/L 6:42 PM [facility] Glucose 82 70 - 125 06/02/2020 HEALTH mg/dL 6:42 PM [facility] Calcium 9.2 8.5 - 10.5 06/02/2020 HEALTH mg/dL 6:42 PM [facility] Urea Nitrogen 24 8 - 28 06/02/2020 HEALTH mg/dL 6:42 PM [facility] Creatinine 0.59 (L) 0.60 - 06/02/2020 HEALTH 1.10 mg/dL 6:42 PM [facility] GFR Estimate If >60 >60 06/02/2020 HEALTH Black mL/min/1.7 6:[address] LABORATORY GFR Estimate >60 >60 06/02/2020 HEALTH mL/min/1.7 6:[address] LABORATORY Specimen Anatomical Collection Method Collection Time Receive d Time (Source) Location / / Volume Laterality Blood specimen Client Draw / 06/02/2020 2:30 PM 2019 5:41 (specimen) Unknown HAIR COLORIST PM HAIR COLORIST Narrative [facility] - 06/02/2020 6:42 PM HAIR COLORIST Fasting Glucose reference range is 70-99 mg/dL per [employer] (ADA) shanda bailon. Ruth John MD LAB - BLOOD ORDERABLES Performing Organization Address City/State/ZIP Code Phon e Number [facility] [place] [address] [phone] [address] [facility] LAB[facility]ORY [place], [place] [address] [phone] [place] [address] documented in this encounter Visit Diagnoses Not on filedocumented in this encounter Additional Health Concerns Assessment Noted Time PHQ-9 Depression Total Score: 4 04/12/2019 7:03 AM CDT documented as of this encounter Care Teams Medical Social Worker Relationship Specialty Start Date End Date Jaiden Holcomb PCP - General Internal Medicine 02/13/2010/03 MD aJyesh [address] [place] [address] Chastity Montero MD Dermatology 09/23/[address] [place] [address] 98 [place], [place] [address] Johnnie Alcocer MD Surgeon General Surgery 03/23/[address] [place], [place] [address] Danni Marcus, CHANDLER Personal Advocate & 01/09/1901/17 Liaison (PAL) Fernando, Ea Complex 04/23/19 Svetlana Osman, Pharmacist Pharmacotherapy 04/23/19 [facility] [address] [place], [place] [phone] Haylie Cheung, Pharmacist Pharmacist 09/11/19 [facility] [address] [place], [place] [phone] Palak Joseph Sleep 05/08/20 03/27/21 Kendall Meehan MD Provider [address] [place] [address] Erlinda Barber MD Assigned Neuroscience 05/08/20 01/26/21 420 [facility] 295 [place] [address] Jaiden Holcomb Assigned PCP 05/24/20 MD Jayesh [address] [place] [address] documented as of this encounter
--- OUTSIDE RECORDS SUMMARY | 2022-06-15 12:50 | XMS_ITS | Encounter Summary ---
:1945 Author Organization [facility] Address [address] [place] [address] Care Team Providers Name Role Phone Chastity Montero MD Unavailable [phone] Johnnie Alcocer MD Unavailable Danni Marcus RN Unavailable Unavailable Mtm, Ea Complex Unavailable Unavailable [facility] Osman [facility] Unavailable [phone] Haylie Cheung [facility] Unavailable [phone] Jaiden Holcomb MD Primary Care Provider [phone] Kendall Joseph MD Unavailable Erlinda Babrer MD Unavailable Jaiden Holcomb MD Unavailable [phone] Reason for Visit Reason Comments Follow Up pt states infusions are abdullahi g well. no issues with picc line. however home care nurse supplies have not been consistantly refilled. Encounter Details Date Type Department Care Team Description 06/09/2020 Office Visit - [facility] Cristiana John, [facility] Mahamed Miranda MD unspecified site, [facility] INFECTIOUS unspeci fied type Street [address] DISEASE [facility] (H) [place], [place] [address] [facility] [address] [facility]ly [facility] [phone] [place] [address] Social History Tobacco Use Types Packs/Day Years [...] or relatives? How often do you attend judaism or More than 4 times per year 05/03/2021 mormon services? Do you belong to any clubs or No 05/03/2021 organizations such as judaism groups, unions, fraternal or athletic groups, or [...] Sign Reading Time Taken Comments Blood Pressure 136/96 06/09/2020 10:41 AM GEOPHYSICAL LABORATORY DIRECTOR Pulse 76 06/09/2020 10:41 AM GEOPHYSICAL LABORATORY DIRECTOR Temperature 36.4 ??C (97.6 ??F) 06/09/2020 10:41 AM GEOPHYSICAL LABORATORY DIRECTOR Respiratory Rate - - Oxygen Saturation - - Inhaled Oxygen Concentration - - Weight - - Height - - Body Mass Index - - documented in this encounter Progress Notes Ruth John MD - 06/09/2020 11:00 AM CST Images from the original note were not included. Progress Notes by Ruth John MD at 06/09/2020 11:00 AM Author: Ruth John MD Service: -- Author Type: Physician Filed: 06/09/2020 11:27 AM Encounter Date: 06/09/2020 Status: Signed Inclusion Paraeducator: Ruth John MD (Physician) [facility] follow up. Name: Charlette Brush : 1945 PCP: Doris Lai MD DOS: 06/09/20 CC: Left IT osteomyelitis HPI/Interval History: Charlette Brush is a 75 y.o. female with the history of morbid obesity with chronic left IT wound andhistory of left IT osteomyelitis. I saw her in April 2020 and based on MRI as well as culture results she was started on IV Unasyn for left IT osteomyelitis on 05/08/2020. PICC line placed on 05/07/2020. She is doing well with no side effect from the antibiotic. No issues with the PICC line. No fever, chills, diarrhea, rashes. She is scheduled to see vascular surgery in the wound clinic on 06/22/2020. PMH: Past Medical History: Diagnosis Date ? Acute [...] Patient has appointment with Retina Specialist at [facility] on 01/11. 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 ? Morbid obesity (H) ? [...] discharge daily. Referral placed for Dr. Kajal Huggnis at [facility] in [place] per patient request. She has contact i [...] and confirm.) ? Weakness left lower limb PSH: Past Surgical History: Procedure Laterality Date ? cholectomy ? CHOLECYSTECTOMY ? NERVE REPAIR left ? PICC 05/07/2020 ? sciatic nerve transection ? TONSILLECTOMY ? wound irrigation and debridement posterior upper thigh ? wound irrigation and debridement left buttocks Social History/Family History: No smoking or drinking. No family history of recurrent infection. Allergies: Allergies Allergen Reactions ? Cephalexin ? Ciprofloxacin Developed rash while on Cipro and Clindamycin ? Clindamycin Developed rash while taking Clindamycin and Cipro ? Lanolin ? Lisinopril ? Mupirocin ? Neomycin ? Penicillins Medications: Current Outpatient Medications on File Prior to Visit Medication Sig Dispense Refill ? acetaminophen (TYLENOL) 325 MG tablet Take 975 mg by mouth every 8 (eight) hours as needed for pain. ? ascorbic acid, vitamin C, (VITAMIN C) 500 MG tablet Take 500 mg by mouth. ? atenolol (TENORMIN) 25 MG tablet Take 25 mg by mouth 2 (two) times a day. ? cetirizine (ZYRTEC) 10 MG tablet Take 10 mg by mouth 2 (two) times a day. ? cholecalciferol, vitamin D3, 500 unit Take 200 Units by mouth. ? desoximetasone (TOPICORT) 0.05 % Gel Apply twice daily as needed to arms and legs ? ferrous sulfate 325 (65 FE) MG tablet Take 325 mg by mouth. ? hydroCHLOROthiazide (HYDRODIURIL) 12.5 MG tablet Take 12.5 mg by mouth. ? hydrocortisone 2.5 % ointment Apply topically 2 (two) times a day. ? levETIRAcetam (KEPPRA) 500 MG tablet Take 500 mg by mouth 2 (two) times a day. ? losartan (COZAAR) 50 MG tablet Take 50 mg by mouth daily. ? mjlotjrjavnv-jbepkdlh-qqijro (CEROVITE SENIOR) tablet Take 1 tablet by mouth at bedtime. ? nystatin (MYCOSTATIN) cream Apply topically. ? sodium hypochlorite (DAKIN'S, HALF-STRENGTH,) external solution Irrigate with as directed daily. ? triamcinolone (KENALOG) 0.1 % ointment Apply topically. ? warfarin (COUMADIN) 10 MG tablet Take 10 mg by mouth daily. ? zinc gluconate 50 mg tablet Take daily for 2 weeks, then reduce to every other day use until bottle runs out. 50 tablet 0 Current Facility-Administered Medications on File Prior to Visit Medication Dose Route Frequency Provider Last Rate Last Admin ? lidocaine 2 % jelly (XYLOCAINE) Topical PRN Patience Toussaint NP Review of System: 12 points review of system is negative except for findings in the HPI. Exam VS: Vitals: 06/09/20 1041 BP: (!) 136/96 Pulse: 76 Temp: 97.6 ??F (36.4 ??C) Gen: Pleasant in no acute distress. HEENT: NCAT. EOMI. Neck: No LAD. Lungs: Clear to auscultation bilaterally with no crackles or wheezes. Card: RRR. No RMG. Peripheral pulses present and symmetrical. No edema. Abd: Soft NT ND. No hepatomegaly or splenomegaly. Ext: No edema Lymph: No cervical or supraclavicular adenopathy. MSK: Left IT wound as shown in picture below. Good granulation tissue. Skin: No rash Neuro: Alert and oriented to place time and person. Cranial nerves grossly intact. Media Information Document Information Care Plan 06/09/2020 11:05 Attached To: Office Visit on 06/09/20 with Ruth John MD Source Information Ruth Jonh MD Inf Infectious Disease Labs: CRP has normalized. Good hemoglobin, WBC, and platelet count. Normal kidney function. Imaging: None new. Assessment: Charlette Brush is a 75 y.o. female with chronic left IT wound with osteomyelitis. Started on IV Unasyn based on cultures on 05/08/2020. Wound looking for decline. We will do 6 weeks of IV Unasyn to be completed on 06/19/2020. It is important to point out that this wound is unlikely to heal without weight loss. Recommendations: -Continue Unasyn until 06/19/2020 for a total of 6 weeks -Same weekly labs -Remove PICC line after last dose of IV antibiotic. -Wound care per wound team. Keep appointment scheduled on 06/22. -Follow up with ID as needed. Rafa John MD [facility] Office . [employer] paging HYSICAL LABORATORY DIRECTOR documented in this encounter Miscellaneous Notes Patient Instructions - HE - Ruth John MD - 06/09/2020 11:00 AM GEOPHYSICAL LABORATORY DIRECTOR Thank you for coming today. Your wound looks pretty clean with good granulation tissue. Your CPR looks good and so do your otherlabs. Plan: -Continue Unasyn until 06/19/2020 for a total of 6 weeks -Same weekly labs -Remove PICC line after last dose of IV antibiotic. -Wound care per wound team. Keep appointment scheduled on 06/22. -Follow up with ID as needed. Rafa John MD HYSICAL LABORATORY DIRECTOR documented in this encounter Plan of Treatment Upcoming Encounters Date Type Specialty Care Team Description 11/15/2022 Virtual Visit Pharm D Haylie Cheung, [facility] [address] [facility] [place] [address] (Lena max) 11/15/2022 Virtual Visit IM/Peds Yane Barraza MD [address] [facility] [place] [id number] (Lena max) 03/03/2023 Virtual Visit Neurology Erlinda Barber MD [address] [facility] [address] [place], [place] [address] (Wo rk) documented as of this encounter Visit Diagnoses Diagnosis Osteomyelitis, unspecified site, unspeci fied type (H) documented in this encounter Additional Health Concerns Assessment Noted Time PHQ-9 Depression Total Score: 4 04/12/2019 7:03 AM CDT documented as of this encounter Care Teams Single Resource Boss Relationship Specialty Start Date End Date Jaiden Holcomb PCP - General Internal Medicine 02/13/2010/03 MD Jayesh [address] [facility] [address] [place] [phone] Chastity Montero MD Dermatology 09/23/[address] [place] [address] [address] [place], [place] [address] Johnnie Alcocer MD Surgeon General Surgery 03/23/[address] [place], [place] [address] Danni Marcus, CHANDLER Personal Advocate & 01/09/1901/17 Liaison (PAL) Fernando, Ea Complex 04/23/19 Svetlana Osman, Pharmacist Pharmacotherapy 04/23/19 [facility] [address] [place] [address] Haylie Cheung, Pharmacist Pharmacist 09/11/19 [facility] [address] [place], [place] [id number] Opal, Assigned Sleep 05/08/20 03/27/21 Kendall Meehan MD Provider [address] [place], [place] [address] Erlinda Barber MD Assigned Neuroscience 05/08/20 01/26/[address] [place] [address] [address] [place], [place] [phone] Jaiden Holcomb Assigned PCP 05/24/20 MD Jayesh [address] [place] [address] documented as of this encounter
--- OUTSIDE RECORDS SUMMARY | 2022-06-15 12:50 | XMS_ITS | Encounter Summary ---
:1945 Author Organization [facility] Address [address] [place] [address] Care Team Providers Name Role Phone Chastity Montero MD Unavailable [phone] Johnnie Alcocer MD Unavailable Danni Marcus RN Unavailable Unavailable Mtm, Ea Complex Unavailable Unavailable Svetlana Osman [facility] Unavailable [phone] Haylie Cheung [facility] Unavailable [phone] Jaiden Holcomb MD Primary Care Provider Kendall Joseph MD Unavailable Erlinda Barber MD Unavailable Jaiden Holcomb MD Unavailable [phone] Encounter Details Date Type Department Care Team Description 06/23/2020 Anticoagulation Therapy [facility] Zhang, 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 embolism; Visit Clinic Yarelis Hwang Paroxysmal atrial fibrillati on (H); [address] MD Jayesh [facility] current use of anticoagulant t [facility] [address] [place] [address] 200 [facility] [address] Social History Tobacco [...] contact Unable to assess 06/15/2020 12:38 PM RUBBING BED OPERATOR with someone who was confirmed or suspected to have Coronavirus / COVID-19? documented as of this encounter Progress Notes Astrid Vasquez RN - 06/23/2020 5:22 PM CST ANTICOAGULATION FOLLOW-UP CLINIC VISIT Patient Name: Charlette Brush Date: 06/23/2020 Contact Type: Telephone SUBJECTIVE: Patient Findings Positives: Change in medications (Last dose of antibiotic on sat) Comments: No other changes in medications, activity, or diet noted. No concerns with clotting, bleeding, or increased bruising noted. Took warfarin as prescribed. Patient is to continue maintenance warfarin plan, and check INR in one week. Juanita verbalizes understanding and agrees to plan. No further questions or concerns. Clinical Outcomes Negatives: Major bleeding event, Thromboembolic event, Anticoagulation-related hospital admission, Anticoagulation-related ED visit, Anticoagulation-related fatality Comments: No other changes in medications, activity, or diet noted. No concerns with clotting, bleeding, or increased bruising noted. Took warfarin as prescribed. Patient is to continue maintenance warfarin plan, and check INR in one week. Juanita verbalizes understanding and agrees to plan. No further questions or concerns. 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 Anticoagulation Care Providers Provider Role Specialty Phone number Galdino Valdez MD Referring Family Medicine [phone] [facility] Responsible Internal Medicine [phone] See the Encounter Report to view Anticoagulation Flowsheet and Dosing Calendar (Go to Encounters tabin chart review, and find the Anticoagulation Therapy Visit) Astrid Vasquez RN ING BED OPERATOR documented in this encounter Plan of Treatment Upcoming Encounters Date Type Specialty Care Team Description 11/15/2022 Virtual Visit Pharm D Haylie Cheung, [facility] [address] [facility] [place] [address] (Lena max) 11/15/2022 Virtual Visit IM/Yane Mathias MD [address] [facility] [place] [phone] (Lena max) 03/03/2023 Virtual Visit Neurology Erlinda Barber MD [address] [facility] 295 [place], [place] [address] (Wo rk) documented as of this encounter Procedures Procedure Name Priority Date/Time Associated Diagnosis Comme nts INR Routine 06/23/2020 Results for thi s procedure are in the resu lts section. documented in this encounter Results (ABNORMAL) INR (06/23/2020) P athologist Signature INR 2.7 (A) 0.90 - 1.10 EXTERNAL LAB Specimen (Source) Anatomical Location Collection Method / Collectio n Time Received Time / Laterality Volume Blood specimen (specimen) Patient Reported LAB - BLOOD ORDERABLES Performing Organization Address City/State/ZIP Code Phon e Number EXTERNAL LAB EXTERNAL LAB External Lab documented in this encounter Visit Diagnoses Diagnosis 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 embolism Paroxysmal atrial fibrillation (H) Atrial fibrillation expert medical writer current use of anticoagulant t herapy documented in this encounter Additional Health Concerns Assessment Noted Time PHQ-9 Depression Total Score: 4 04/12/2019 7:03 AM CDT documented as of this encounter Care Teams Miller Head Wet Process Relationship Specialty Start Date End Date Jaiden Holcomb PCP - General Internal Medicine 02/13/2010/03 MD Jayesh [address] [facility] [address] [place], [place] [phone] Chastity Montero MD Dermatology 09/23/14 [address] [facility] 98 [place], [place] [address] Johnnie Alcocer MD Surgeon General Surgery 03/23/[address] [place], [place] [address] Danni Marcus, CHANDLER Personal Advocate & 01/09/1901/17 Liaison (PAL) Kyle King Complex 04/23/19 Svetlana Osman, Pharmacist Pharmacotherapy 04/23/19 [facility] [address] [place] [address] Haylie Cheung, Pharmacist Pharmacist 09/11/19 [facility] [address] [place], [place] [phone] Opal, Assigned Sleep 05/08/20 03/27/21 Kendall Meehan MD Provider [address] [place], [place] [phone] Erlinda Barber MD Assigned Neuroscience 05/08/20 01/26/21 [address] [facility] 295 [place] [address] Jaiden Holcomb Assigned PCP 05/24/20 MD Jayesh 9[address] [place] [address] documented as of this encounter
--- OUTSIDE RECORDS SUMMARY | 2022-06-15 12:50 | XMS_ITS | Encounter Summary ---
:1945 Author Organization [facility] Address [address] [place] [address] Care Team Providers Name Role Phone Chastity Montero MD Unavailable [phone] Johnnie Alcocer MD Unavailable Danni Marcus RN Unavailable Unavailable Mtm, Ea Complex Unavailable Unavailable Svetlana Osman [facility] Unavailable [phone] Haylie Cheung [facility] Unavailable [phone] Jaiden Holcomb MD Primary Care Provider [phone] Kendall Joseph MD Unavailable Erlinda Barber MD Unavailable Jaiden Holcomb MD Unavailable Reason for Visit Reason Onset Date Comments Home Care/Hospice 06/04/2020 OT verbal orders Encounter Details Date Type Department Care Team Description 06/04/2020 Telephone [facility] Jaiden Holcomb Home Care/Hospice (OT Clinic Yarelis Mcconnell MD verbal orders) [address] [place] [address] [place] [address] [address] [address] [place] [address] [phone] Social History Tobacco Use Types Packs/Day Years [...] Telephone Encounter - Danni Marcus, RN - 06/04/2020 9:57 AM CST LM with approval for OT orders requested below per protocol. Advised to call with any other questions or concerns. Ashli Marcus RN PROJECTS SUPERVISOR Telephone Encounter - Gisele Reed - 06/04/2020 8:51 AM CST Lily with [facility] left voicemail at 8:04am Requesting verbal orders: OT for 1 time a week for 4 weeks For instrumental and ADL's Callback [phone], okay to leave detailed voicemail, confidential line Thank you Luis E Carreon Overhead Line Worker - Complex Care Team PROJECTS SUPERVISOR documented in this encounter Plan of Treatment Upcoming Encounters Date Type Specialty Care Team Description 11/15/2022 Virtual Visit Pharm D Haylie Cheung, [facility] [address] [place] [address] (Wo rk) 11/15/2022 Virtual Visit IM/Peds Yane Barraza MD [address] [place] [address] [place] [address] (Wo rk) 03/03/2023 Virtual Visit Neurology Erlinda Barber MD [address] [place] [address] 295 [place], [place] [address] (Wo rk) documented as of this encounter Visit Diagnoses Not on filedocumented in this encounter Additional Health Concerns Assessment Noted Time PHQ-9 Depression Total Score: 4 04/12/2019 7:03 AM CDT documented as of this encounter Care Teams Link Knitting Machine Operator Relationship Specialty Start Date End Date Jaiden Holcomb PCP - General Internal Medicine 02/13/2010/03 MD Jayesh [address] [place] [address] [place] [address] Chastity Montero MD Dermatology 09/23/[address] [place] [address] 98 [place], [place] [address] Johnnie Alcocer MD Surgeon General Surgery 03/23/17 [address] [facility] [address] [place], [place] [address] Danni Marcus, CHANDLER Personal Advocate & 01/09/1901/17 Liaison (PAL) Mtkinsey, Ea Complex 04/23/19 Svetlana Osman, Pharmacist Pharmacotherapy 04/23/19 [facility] [address] [place] [address] Haylie Cheung, Pharmacist Pharmacist 09/11/19 [facility] [address] [place] [address] Opal, Assigned Sleep 05/08/20 03/27/21 Kendall Meehan MD Provider [address] [place] [address] Erlinda Barber MD Assigned Neuroscience 05/08/20 01/26/[address] [place] [address] [facility] 295 [place] [address] Jaiden Holcomb Assigned PCP 05/24/20 MD Jayesh 9[address] [place] [address] documented as of this encounter
--- OUTSIDE RECORDS SUMMARY | 2022-06-15 12:50 | XMS_ITS | Encounter Summary ---
:1945 Author Organization [facility] Address [address] [facility] [place] [address] Care Team Providers Name Role Phone Chastity Montero MD Unavailable [phone] Johnnie Alcocer MD Unavailable Danni Marcus RN Unavailable Unavailable Mtm, Ea Complex Unavailable Unavailable Svetlana Osman [facility] Unavailable [phone] Haylie Cheung [facility] Unavailable [phone] Jaiden Holcomb MD Primary Care Provider [phone] Kendall Joseph MD Unavailable Erlinda Barber MD Unavailable Jaiden Holcomb MD Unavailable Encounter Details Date Type Department Care Team Description 06/08/2020 Home Infusion [facility] Reva Galvez, [facility] [address] [place], [place] [phone] 118 [facility] [phone] [place] [address] (Wo rk) Social History Tobacco [...] documented as of this encounter Progress Notes Shira Kwong - 06/08/2020 11:59 PM CST This is a recent snapshot of the patient's [facility] medical record. For current drug dose and complete information and questions, call [phone] or In [employer] [facility] ([id number]) CSN Number: [id number] ANICAL PLANNER documented in this encounter Plan of Treatment Upcoming Encounters Date Type Specialty Care Team Description 11/15/2022 Virtual Visit Pharm Haylie Gonzalez, [facility] [address] [facility] [place] [address] (Wo rk) 11/15/2022 Virtual Visit IM/Peds Yane Barraza MD [address] [facility] [place] [address] (Wo rk) 03/03/2023 Virtual Visit Neurology [facility]linda Barber MD [facility] 295 [place] [address] (Wo rk) documented as of this encounter Visit Diagnoses Not on filedocumented in this encounter Additional Health Concerns Assessment Noted Time PHQ-9 Depression Total Score: 4 04/12/2019 7:03 AM CDT documented as of this encounter Care Teams Supervisor Metal Placing Relationship Specialty Start Date End Date Jaiden Holcomb PCP - General Internal Medicine 02/13/2010/03 MD Jayesh [address] [facility] [place] [address] Chastity Montero MD Dermatology 09/23/14 [address] [facility] 98 [place] [address] Johnnie Alcocer MD Surgeon General Surgery 03/23/17 [address] [facility] 300 [place], [place] [phone] Danni Marcus, CHANDLER Personal Advocate & 01/09/1901/17 Liaison (PAL) Fernando, Ea Complex 04/23/19 Svetlana Osman, Pharmacist Pharmacotherapy 04/23/19 [facility] [address] [place] [address] Haylie Cheung, Pharmacist Pharmacist 09/11/19 [facility] [address] [place] [address] Opal, Assigned Sleep 05/08/20 03/27/21 Kendall Meehan MD Provider [address] [place] [address] Erlinda Barber MD Assigned Neuroscience 05/08/20 01/26/21 [address] [facility] 295 [place] [address] Jaiden Holcomb Assigned PCP 05/24/20 MD Jayesh 909 [place] [address] documented as of this encounter
--- OUTSIDE RECORDS SUMMARY | 2022-06-15 12:50 | XMS_ITS | Encounter Summary ---
:1945 Author Organization [place] Address [address] [facility] [place] [address] Care Team Providers Name Role Phone Chastity Montero MD Unavailable [phone] Johnnie Alcocer MD Unavailable Danni Marcus RN Unavailable Unavailable Mtm, Ea Complex Unavailable Unavailable Svetlana Osman [facility] Unavailable [phone] Haylie Cheung [facility] Unavailable [phone] Jaiden Holcomb MD Primary Care Provider [phone] Kendall Joseph MD Unavailable Erlinda Barber MD Unavailable Jaiden Holcomb MD Unavailable Encounter Details Date Type Department Care Team Description 06/10/2020 Home Infusion [facility] Reva Galvez, [facility] [address] [place], [place] [phone] [address] [facility] [phone] [place] [address] (Wo rk) Social History Tobacco [...] this encounter Progress Notes Shira Kwong - 06/10/2020 11:59 PM CST This is a recent snapshot of the patient's [facility] medical record. For current drug dose and complete information and questions, call [phone] or In OP3Nvoice [facility]OVER[facility] ([id number]) CSN Number: [id number] OW UNIT AIR CONDITIONING MECHANIC documented in this encounter Plan of Treatment Upcoming Encounters Date Type Specialty Care Team Description 11/15/2022 Virtual Visit Pharm Haylie Gonzalez, [facility] [address] [facility] [place] [address] (Wo rk) 11/15/2022 Virtual Visit IM/Peds Yane Barraaz MD [address] [facility] [place] [address] (Wo rk) 03/03/2023 Virtual Visit Neurology Erlinda Barber MD [address] [facility] 295 [place] [address] (Wo rk) documented as of this encounter Visit Diagnoses Not on filedocumented in this encounter Additional Health Concerns Assessment Noted Time PHQ-9 Depression Total Score: 4 04/12/2019 7:03 AM CDT documented as of this encounter Care Teams Program Director/Music Director Relationship Specialty Start Date End Date Jaiden Holcomb PCP - General Internal Medicine 02/13/2010/03 MD Jayesh [address] [facility] [place] [address] Chastity Montero MD Dermatology 09/23/14 420 [facility] 98 [place] [address] Johnnie Alcocer MD Surgeon General Surgery 03/23/17 [address] [facility] 300 [place], [place] [id number] Danni Marcus, CHANDLER Personal Advocate & 01/09/1901/17 Liaison (PAL) Fernando, Ea Complex 04/23/19 Svetlana Osman, Pharmacist Pharmacotherapy 04/23/19 [facility] [address] [place] [address] Haylie Cheung, Pharmacist Pharmacist 09/11/19 [facility] [address] [place] [address] Opal, Assigned Sleep 05/08/20 03/27/21 Kendall Meehan MD Provider [address] [place] [address] Erlinda Barber MD Assigned Neuroscience 05/08/20 01/26/21 [address] [facility] 295 [place] [address] Jaiden Holcomb Assigned PCP 05/24/20 MD Jayesh 909 [place] [address] documented as of this encounter
--- OUTSIDE RECORDS SUMMARY | 2022-06-15 12:50 | XMS_ITS | Encounter Summary ---
:1945 Author Organization [place] Address [address] [place] [address] Care Team Providers Name Role Phone Chastity Montero MD Unavailable [phone] Johnnie Alcocer MD Unavailable Danni Marcus RN Unavailable Unavailable Mtm, Ea Complex Unavailable Unavailable Svetlana Osman [facility] Unavailable [phone] Haylie Cheung [facility] Unavailable [phone] Jaiden Holcomb MD Primary Care Provider [phone] Kendall Joseph MD Unavailable Erlinda Barber MD Unavailable Jaiden Holcomb MD Unavailable Encounter Details Date Type Department Care Team Description 06/16/2020 Records - [facility] INFECTIOUS [address] [facility] [place], [place] [address] [facility] [address] Formerly [facility] [phone] [place], [place] [address] (Wo rk) Social History [...] D Haylie Cheung, [facility] [address] [facility] [place] [address] (Lena max) 11/15/2022 Virtual Visit IM/Peds Yane Barraza MD [address] [facility] [place] [address] (Wo winter) 03/03/2023 Virtual Visit Neurology Erlinda Barber MD 420 [facility] 295 [place] [address] (Wo winter) documented as of this encounter Procedures Procedure Name Priority Date/Time Associated Comments Diagnosis CBC WITH PLATELETS AND Routine 06/16/2020 4:20 PM Results for this DIFFERENTIAL DIRECTOR OF HOUSING AND ENERGY SERVICES procedure are i n the results section. ERYTHROCYTE Routine 06/16/2020 4:20 PM Results f or this SEDIMENTATION RATE DIRECTOR OF HOUSING AND ENERGY SERVICES procedure are in AUTO the results section. CRP INFLAMMATION Routine 06/16/2020 4:20 PM Resul ts for this DIRECTOR OF HOUSING AND ENERGY SERVICES procedure are i n the results section. AST Routine 06/16/2020 4:20 PM Results f or this DIRECTOR OF HOUSING AND ENERGY SERVICES procedure are i n the results section. BASIC METABOLIC PANEL Routine 06/16/2020 4:20 PM Results for this DIRECTOR OF HOUSING AND ENERGY SERVICES procedure are i n the results section. documented in this encounter Results AST (06/16/2020 4:20 PM DIRECTOR OF HOUSING AND ENERGY SERVICES) P athologist Signature AST 21 0 - 40 U/L 06/16/2020 [facility] 7:47 PM DIRECTOR OF HOUSING AND ENERGY SERVICES [facility] Specimen Anatomical Collection Method Collection Time Receive d Time (Source) Location / / Volume Laterality Blood specimen Capillary / 06/16/2020 4:20 PM 020 6:52 (specimen) Unknown DIRECTOR OF HOUSING AND ENERGY SERVICES PM DIRECTOR OF HOUSING AND ENERGY SERVICES Ruth John MD LAB - BLOOD ORDERABLES Performing Organization Address [facility]/State/ZIP Code Phon [place] [address] [address] [facility] CBC WITH PLATELETS AND DIFFERENTIAL (06/16/2020 4:20 PM DIRECTOR OF HOUSING AND ENERGY SERVICES) Analysis Performed At Patho logist Time Signature WBC 4.7 4.0 - 11.0 06/16/2020 [facility] thou/uL 7:27 PM [facility] RBC Count 4.45 3.80 - 06/16/2020 [facility] 5.40 7:27 PM [facility]/uL [facility] Hemoglobin 13.7 12.0 - 06/16/2020 [facility] 16.0 g/dL 7:27 PM [facility] Hematocrit 40.7 35.0 - 06/16/2020 [facility] 47.0 % 7:27 PM [facility] MCV 92 80 - 100 06/16/2020 [facility] fL 7:27 PM [facility] MCH 30.8 27.0 - 06/16/2020 [facility] 34.0 pg 7:27 PM DIRECTOR OF HOUSING AND ENERGY SERVICES [facility] MCHC 33.7 32.0 - 06/16/2020 [facility] 36.0 g/dL 7:27 PM [facility] RDW 13.1 11.0 - 06/16/2020 [facility] 14.5 % 7:27 PM [facility] Platelet Count 235 140 - 440 06/16/2020 [facility] thou/uL 7:27 PM [facility] Mean Platelet 10.5 8.5 - 12.5 06/16/2020 [facility] Volume fL 7:27 PM DIRECTOR OF HOUSING AND ENERGY SERVICES [facility] % Neutrophils 58 50 - 70 % 06/16/2020 [facility] 7:27 PM DIRECTOR OF HOUSING AND ENERGY SERVICES [facility] % Lymphocytes 26 20 - 40 % 06/16/2020 [facility] 7:27 PM [facility] % Monocytes 10 2 - 10 % 06/16/2020 [facility] 7:27 PM [facility] % Eosinophils 5 0 - 6 % 06/16/2020 [facility] 7:27 PM [facility] % Basophils 1 0 - 2 % 06/16/2020 [facility] 7:27 PM DIRECTOR OF HOUSING AND ENERGY SERVICES [facility] % Immature 0 <=0 % 06/16/2020 [facility] Granulocytes 7:27 PM DIRECTOR OF HOUSING AND ENERGY SERVICES [facility] Absolute 2.7 2.0 - 7.7 06/16/2020 [facility] Neutrophils thou/uL 7:27 PM DIRECTOR OF HOUSING AND ENERGY SERVICES [facility] Absolute 1.2 0.8 - 4.4 06/16/2020 HEALTH Lymphocytes thou/uL 7:27 PM DIRECTOR OF HOUSING AND ENERGY SERVICES [facility] Absolute 0.5 0.0 - 0.9 06/16/2020 HEALTH Monocytes thou/uL 7:27 PM DIRECTOR OF HOUSING AND ENERGY SERVICES [facility] Eosinophils 0.2 0.0 - 0.4 06/16/2020 HEALTH Absolute thou/uL 7:27 PM DIRECTOR OF HOUSING AND ENERGY SERVICES [facility] Absolute 0.0 0.0 - 0.2 06/16/2020 HEALTH Basophils thou/uL 7:27 PM DIRECTOR OF HOUSING AND ENERGY SERVICES [facility] Absolute Immature 0.0 <=0.0 06/16/2020 HEALTH Granulocytes thou/uL 7:27 PM DIRECTOR OF HOUSING AND ENERGY SERVICES [facility] Specimen Anatomical Collection Method Collection Time Receive d Time (Source) Location / / Volume Laterality Blood specimen Capillary / 06/16/2020 4:20 PM 020 6:52 (specimen) Unknown DIRECTOR OF HOUSING AND ENERGY SERVICES PM DIRECTOR OF HOUSING AND ENERGY SERVICES Ruth John MD LAB - BLOOD ORDERABLES Performing Organization Address [facility] Phon e Number [facility] [place] [address] [phone] [facility] [address] [address] [facility] (ABNORMAL) Erythrocyte sedimentation rate auto (06/16/2020 4:20 PM DIRECTOR OF HOUSING AND ENERGY SERVICES) Patholo gist Method Time Signature Erythrocyte 21 (H) 0 - 20 06/16/2020 HEALTH Sedimentation Rate mm/hr 8:14 PM DIRECTOR OF HOUSING AND ENERGY SERVICES [facility] Specimen Anatomical Collection Method Collection Time Receive d Time (Source) Location / / Volume Laterality Blood specimen Capillary / 06/16/2020 4:20 PM 020 6:52 (specimen) Unknown DIRECTOR OF HOUSING AND ENERGY SERVICES PM DIRECTOR OF HOUSING AND ENERGY SERVICES Ruth John MD LAB - BLOOD ORDERABLES Performing Organization Address [facility] Phon e Number [facility] [place] [address] [phone] [facility] [address] [address] [facility] (ABNORMAL) CRP inflammation (06/16/2020 4:20 PM DIRECTOR OF HOUSING AND ENERGY SERVICES) P athologist Signature CRP 0.9 (H) 0.0 - 0.8 06/16/2020 HEALTH mg/dL 7:52 PM DIRECTOR OF HOUSING AND ENERGY SERVICES [facility] Specimen Anatomical Collection Method Collection Time Receive d Time (Source) Location / / Volume Laterality Blood specimen Capillary / 06/16/2020 4:20 PM 020 6:52 (specimen) Unknown DIRECTOR OF HOUSING AND ENERGY SERVICES PM DIRECTOR OF HOUSING AND ENERGY SERVICES Ruth John MD LAB - BLOOD ORDERABLES Performing Organization Address City/State/ZIP Code Phon [place] [address] [phone] [address] [facility] (ABNORMAL) Basic metabolic panel (06/16/2020 4:20 PM DIRECTOR OF HOUSING AND ENERGY SERVICES) [facility] Method Time Signature Sodium 139 136 - 145 06/16/2020 HEALTH mmol/L 7:[address] [facility] Potassium 4.6 3.5 - 5.0 06/16/2020 HEALTH mmol/L 7:[address] [facility] Chloride 106 98 - 107 06/16/2020 HEALTH mmol/L 7:[address] [facility] Carbon Dioxide 25 22 - 31 06/16/2020 HEALTH (CO2) mmol/L 7:[address] [facility] Anion Gap 8 5 - 18 06/16/2020 HEALTH mmol/L 7:[address] [facility] Glucose 79 70 - 125 06/16/2020 HEALTH mg/dL 7:[address] [facility] Calcium 8.9 8.5 - 10.5 06/16/2020 HEALTH mg/dL 7:[address] [facility] Urea Nitrogen 21 8 - 28 06/16/2020 HEALTH mg/dL 7:[address] [facility] Creatinine 0.53 (L) 0.60 - 06/16/2020 HEALTH 1.10 mg/dL 7:[address] [facility] GFR Estimate If >60 >60 06/16/2020 HEALTH Black mL/min/1.7 7:[address] LABORATORY GFR Estimate >60 >60 06/16/2020 HEALTH mL/min/1.7 7:[address] LABORATORY Specimen Anatomical Collection Method Collection Time Receive d Time (Source) Location / / Volume Laterality Blood specimen Capillary / 06/16/2020 4:20 PM 020 6:52 (specimen) Unknown DIRECTOR OF HOUSING AND ENERGY SERVICES PM DIRECTOR OF HOUSING AND ENERGY SERVICES Narrative [facility] - 06/16/2020 7:47 PM DIRECTOR OF HOUSING AND ENERGY SERVICES Fasting Glucose reference range is 70-99 mg/dL per [place] [employer] (ADA) shanda bailon. Ruth John MD LAB - BLOOD ORDERABLES Performing Organization Address City/State/[place] [address] [address] [facility] [place], [place] [address] [phone] [place] [address] documented in this encounter Visit Diagnoses Not on filedocumented in this encounter Additional Health Concerns Assessment Noted Time PHQ-9 Depression Total Score: 4 04/12/2019 7:03 AM CDT documented as of this encounter Care Teams Mine Technician Relationship Specialty Start Date End Date Jaiden Holcomb PCP - General Internal Medicine 02/13/2010/03 MD Jayesh [address] [facility] [place] [address] Chastity Montero MD Dermatology 09/23/[address] [place] [address] 98 [place], [place] [address] Johnnie Alcocer MD Surgeon General Surgery 03/23/17 [address] [facility] [address] [place], [place] [id number] Danni Marcus, CHANDLER Personal Advocate & 01/09/1901/17 Liaison (PAL) Fernando, Ea Complex 04/23/19 Svetlana Osman, Pharmacist Pharmacotherapy 04/23/19 [facility] [address] [place], [place] [phone] Haylie Cheung, Pharmacist Pharmacist 09/11/19 [facility] [address] [place], [place] [phone] Opal, Assigned Sleep 05/08/20 03/27/21 Kendall Meehan MD Provider [address] [place] [address] Erlinda Barber MD Assigned Neuroscience 05/08/20 01/26/21 420 [facility] 295 [place] [address] Jaiden Holcomb Assigned PCP 05/24/20 MD Jayesh 909 [place] [address] documented as of this encounter
--- OUTSIDE RECORDS SUMMARY | 2022-06-15 12:50 | XMS_ITS | Encounter Summary ---
:1945 Author Organization [place] Address [address] [place] [address] Care Team Providers Name Role Phone Chastity Montero MD Unavailable [phone] Johnnie Alcocer MD Unavailable Danni Marcus RN Unavailable Unavailable Mtm, Ea Complex Unavailable Unavailable Svetlana Osman [facility] Unavailable [phone] Haylie Cheung [facility] Unavailable [phone] Jaiden Holcomb MD Primary Care Provider [phone] Kendall Joseph MD Unavailable Erlinda Barber MD Unavailable Jaiden Holcomb MD Unavailable Encounter Details Date Type Department Care Team Description 06/09/2020 Anticoagulation Therapy [facility] Zhang, 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 embolism; Visit Clinic Yarelis Hwang Paroxysmal atrial fibrillati on (H); [address] [place] MD Jayesh [facility] current use of anticoagulant t [facility] [address] [place] [address] 200 [facility] [phone] Social History Tobacco Use [...] encounter Progress Notes Brook Flores RN - 06/09/2020 4:31 PM CST ANTICOAGULATION MANAGEMENT Patient Name: Chareltte Brush Date: 06/09/2020 ASSESSMENT /SUBJECTIVE: Today's INR result of 2.2 is therapeutic. Goal INR of 2.0-3.0 ??? Warfarin dose taken: Warfarin taken as instructed ??? Diet: No new diet changes affecting INR ??? Medication changes/ interactions: No new medications/supplements affecting INR ??? Previous INR: Subtherapeutic ??? S/S of bleeding or thromboembolism: No ??? New injury or illness: No ??? Upcoming surgery, procedure or cardioversion: No ??? Additional findings: IV abx will stop on 06/19 PLAN: Telephone call with home care nurse Juanita regarding INR result and instructed: Warfarin Dosing Instructions: Continue your current warfarin dose 10mg daily Instructed patient to follow up no later than: 1 week Orders given to Homecare nurse/facility to recheck Education provided: Contact the anticoagulation clinic with any changes, questions or concerns at #[phone] Juanita ARTEAGA verbalizes understanding and agrees to warfarin dosing plan. Instructed to call the Anticoagulation Clinic for any changes, questions or concerns. (#[phone]) Brook Flores RN OBJECTIVE: Recent labs: (last 7 days) 06/05/20 06/09/20 INR 1.5* 2.2* No question data found. 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 Anticoagulation Care Providers Provider Role Specialty Phone number Galdino Valdez MD Referring Family Medicine [phone] [facility] Responsible Internal Medicine [phone] Brook De Luna RN, BSN, PHN ELER documented in this encounter Plan of Treatment Upcoming Encounters Date Type Specialty Care Team Description 11/15/2022 Virtual Visit Pharm D Haylie Cheung, [facility] [address] [facility] [place] [address] (Lena max) 11/15/2022 Virtual Visit IM/Peds Yane Barraza MD [address] [facility] [place] [address] (Lena max) 03/03/2023 Virtual Visit Neurology Erlinda Barber MD 420 [facility] 295 [place], [place] [address] (Wo rk) documented as of this encounter Procedures Procedure Name Priority Date/Time Associated Diagnosis Comme nts INR Routine 06/09/2020 Results for thi s procedure are in the resu lts section. 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 current use of anticoagulant t herapy documented in this encounter Additional Health Concerns Assessment Noted Time PHQ-9 Depression Total Score: 4 04/12/2019 7:03 AM CDT documented as of this encounter Care Teams Director [facility] Relationship Specialty Start Date End Date Jaiden Holcomb PCP - General Internal Medicine 02/13/2010/03 MD Jayesh [address] [facility] [address] [place], [place] [phone] Chastity Montero MD Dermatology 09/23/14 420 [facility] 98 [place], [place] [address] Johnnie Alcocer MD Surgeon General Surgery 03/23/[address] [place], [place] [address] Danni Marcus, CHANDLER Personal Advocate & 01/09/1901/17 Liaison (PAL) Kyle King Complex 04/23/19 Svetlana Osman, Pharmacist Pharmacotherapy 04/23/19 [place] [address] [place] [address] Haylie Cheung, Pharmacist Pharmacist 09/11/19 [facility] [address] [place] [phone] Opal, Assigned Sleep 05/08/20 03/27/21 Kendall Meehan MD Provider [address] [place], [place] [phone] Erlinda Barber MD Assigned Neuroscience 05/08/20 01/26/21 420 [facility] 295 [place] [address] Jaiden Holcomb Assigned PCP 05/24/20 MD Jayesh 909 [place] [address] documented as of this encounter
--- OUTSIDE RECORDS SUMMARY | 2022-06-15 12:50 | XMS_ITS | Encounter Summary ---
:1945 Author Organization [place] Address [address] [facility] [place] [address] Care Team Providers Name Role Phone Chastity Montero MD Unavailable [phone] Johnnie Alcocer MD Unavailable Danni Marcus RN Unavailable Unavailable Mtm, Ea Complex Unavailable Unavailable Svetlana Osman [facility] Unavailable [phone] Haylie Cheung [facility] Unavailable [phone] Jaiden Holcomb MD Primary Care Provider [phone] Kendall Joseph MD Unavailable Erlinda Barber MD Unavailable Jaiden Holcomb MD Unavailable [phone] Encounter Details Date Type Department Care Team Description 06/03/2020 Home Infusion [facility] Reva Galvez, [facility] [address] [place], [place] [phone] 501 [facility] [phone] [place] [address] (Wo rk) Social History Tobacco [...] documented as of this encounter Progress Notes Amparo Mijares - 06/03/2020 11:59 PM CST This is a recent snapshot of the patient's [facility] medical record. For current drug dose and complete information and questions, call [phone] [facility] ([id number]) CSN Number: [id number] NE WATER TENDER documented in this encounter Plan of Treatment Upcoming Encounters Date Type Specialty Care Team Description 11/15/2022 Virtual Visit Pharm D Haylie Cheung, [facility] [address] [facility] [place] [address] (Lena max) 11/15/2022 Virtual Visit IM/Peds Yane Barraza MD [address] [facility] [place] [address] (Wo winter) 03/03/2023 Virtual Visit Neurology Erlinda Barber MD [address] [facility] 295 [place], [place] [address] (Wo rk) documented as of this encounter Visit Diagnoses Not on filedocumented in this encounter Additional Health Concerns Assessment Noted Time PHQ-9 Depression Total Score: 4 04/12/2019 7:03 AM CDT documented as of this encounter Care Teams Crab Fisher Relationship Specialty Start Date End Date Jaiden Holcomb PCP - General Internal Medicine 02/13/2010/03 MD Jayesh [address] [facility] [address] [place] [id number] Chastity Montero MD Dermatology 09/23/[address] [place] [address] 98 [place], [place] [address] Johnnie Alcocer MD Surgeon General Surgery 03/23/17 [address] [facility] [facility] 300 [place], [place] [id number] Danni Marcus, CHANDLER Personal Advocate & 01/09/1901/17 Liaison (PAL) Fernando, Ea Complex 04/23/19 Svetlana Osman, Pharmacist Pharmacotherapy 04/23/19 [facility] [address] [place] [address] Haylie Cheung, Pharmacist Pharmacist 09/11/19 [facility] [address] [place] [address] Opal, Assigned Sleep 05/08/20 03/27/21 Kendall Meehan MD Provider [address] [place], [place] [address] Erlinda Barber MD Assigned Neuroscience 05/08/20 01/26/21 [address] [facility] 295 Provider [place], [place] [address] Jaiden Holcomb Assigned PCP 05/24/20 MD Jayesh 909 [place] [address] documented as of this encounter
--- OUTSIDE RECORDS SUMMARY | 2022-06-15 12:50 | XMS_ITS | Encounter Summary ---
:1945 Author Organization [facility] Address [address] [place] [address] Care Team Providers Name Role Phone Chastity Montero MD Unavailable [phone] Johnnie Alcocer MD Unavailable Danni Marcus RN Unavailable Unavailable Mtm, Ea Complex Unavailable Unavailable Svetlana Osman [facility] Unavailable [phone] Haylie Cheung [facility] Unavailable [phone] Jaiden Holcomb MD Primary Care Provider [phone] Kendall Joseph MD Unavailable Erlinda Barber MD Unavailable Jaiden Holcomb MD Unavailable Encounter Details Date Type Department Care Team Description 06/09/2020 Records - [facility] [address] [facility] [place], [place] [address] [facility] [address] [facility] [phone] [place], [place] [address] (Wo rk) Social History [...] Cheung, [facility] [address] [facility] [place] [address] (Lena max) 11/15/2022 Virtual Visit IM/Peds Yane Barraza MD [address] [facility] [place] [address] (Wo winter) 03/03/2023 Virtual Visit Neurology Erlinda Barber MD [address] [facility] 295 [place] [address] (Wo winter) documented as of this encounter Procedures Procedure Name Priority Date/Time Associated Comments Diagnosis CBC WITH PLATELETS AND Routine 06/09/2020 4:45 PM Results for this DIFFERENTIAL FITNESS DIRECTOR procedure are i n the results section. ERYTHROCYTE Routine 06/09/2020 4:45 PM Results f or this SEDIMENTATION RATE FITNESS DIRECTOR procedure are in AUTO the results section. CRP INFLAMMATION Routine 06/09/2020 4:45 PM Resul ts for this FITNESS DIRECTOR procedure are i n the results section. AST Routine 06/09/2020 4:45 PM Results f or this FITNESS DIRECTOR procedure are i n the results section. BASIC METABOLIC PANEL Routine 06/09/2020 4:45 PM Results for this FITNESS DIRECTOR procedure are i n the results section. documented in this encounter Results AST (06/09/2020 4:45 PM FITNESS DIRECTOR) P athologist Signature AST 20 0 - 40 U/L 06/09/2020 [facility] 7:16 PM FITNESS DIRECTOR [facility] Specimen Anatomical Collection Method Collection Time Receive d Time (Source) Location / / Volume Laterality Blood specimen Client Draw / 06/09/2020 4:45 PM 2019 6:06 (specimen) Unknown FITNESS DIRECTOR PM FITNESS DIRECTOR Ruth John MD LAB - BLOOD ORDERABLES Performing Organization Address [facility]/State/ZIP Code Phon [place] [address] [address] [facility] CBC WITH PLATELETS AND DIFFERENTIAL (06/09/2020 4:45 PM FITNESS DIRECTOR) Analysis Performed At Patho logist Time Signature WBC 5.7 4.0 - 11.0 06/09/2020 [facility] thou/uL 6:21 PM [facility] RBC Count 4.54 3.80 - 06/09/2020 [facility] 5.40 6:21 PM [facility]/uL [facility] Hemoglobin 14.0 12.0 - 06/09/2020 [facility] 16.0 g/dL 6:21 PM [facility] Hematocrit 41.8 35.0 - 06/09/2020 [facility] 47.0 % 6:21 PM [facility] MCV 92 80 - 100 06/09/2020 [facility] fL 6:21 PM [facility] MCH 30.8 27.0 - 06/09/2020 [facility] 34.0 pg 6:21 PM FITNESS DIRECTOR [facility] MCHC 33.5 32.0 - 06/09/2020 [facility] 36.0 g/dL 6:21 PM [facility] RDW 13.3 11.0 - 06/09/2020 [facility] 14.5 % 6:21 PM [facility] Platelet Count 219 140 - 440 06/09/2020 [facility] thou/uL 6:21 PM [facility] Mean Platelet 10.5 8.5 - 12.5 06/09/2020 [facility] Volume fL 6:21 PM FITNESS DIRECTOR [facility] % Neutrophils 65 50 - 70 % 06/09/2020 [facility] 6:21 PM [facility] % Lymphocytes 21 20 - 40 % 06/09/2020 [facility] 6:21 PM [facility] % Monocytes 10 2 - 10 % 06/09/2020 [facility] 6:21 PM FITNESS DIRECTOR [facility] % Eosinophils 4 0 - 6 % 06/09/2020 [facility] 6:21 PM FITNESS DIRECTOR [facility] % Basophils 1 0 - 2 % 06/09/2020 [facility] 6:21 PM FITNESS DIRECTOR [facility] % Immature 0 <=0 % 06/09/2020 [facility] Granulocytes 6:21 PM [facility] Absolute 3.7 2.0 - 7.7 06/09/2020 [facility] Neutrophils thou/uL 6:21 PM FITNESS DIRECTOR [facility] Absolute 1.2 0.8 - 4.4 06/09/2020 [facility] Lymphocytes thou/uL 6:21 PM FITNESS DIRECTOR [facility] Absolute 0.6 0.0 - 0.9 06/09/2020 [facility] Monocytes thou/uL 6:21 PM FITNESS DIRECTOR [employer] Eosinophils 0.2 0.0 - 0.4 06/09/2020 [facility] Absolute thou/uL 6:21 PM FITNESS DIRECTOR [facility] Absolute 0.0 0.0 - 0.2 06/09/2020 [facility] Basophils thou/uL 6:21 PM FITNESS DIRECTOR [facility] Absolute Immature 0.0 <=0.0 06/09/2020 [facility] Granulocytes thou/uL 6:21 PM FITNESS DIRECTOR [facility] Specimen Anatomical Collection Method Collection Time Receive d Time (Source) Location / / Volume Laterality Blood specimen Client Draw / 06/09/2020 4:45 PM 2019 6:06 (specimen) Unknown FITNESS DIRECTOR PM FITNESS DIRECTOR Ruth John MD LAB - BLOOD ORDERABLES Performing Organization Address [facility] Phon e Number [facility] [place] [phone] [facility] [address] [facility] (ABNORMAL) CRP inflammation (06/09/2020 4:45 PM FITNESS DIRECTOR) P athologist Signature CRP 2.1 (H) 0.0 - 0.8 06/09/2020 HE[facility] mg/dL 7:20 PM FITNESS DIRECTOR [facility] Specimen Anatomical Collection Method Collection Time Receive d Time (Source) Location / / Volume Laterality Blood specimen Client Draw / 06/09/2020 4:45 PM 2019 6:06 (specimen) Unknown FITNESS DIRECTOR PM FITNESS DIRECTOR Ruth John MD LAB - BLOOD ORDERABLES Performing Organization Address [facility] Phon e Number [facility] [place] [address] [phone] [facility] [address] [address] [facility] (ABNORMAL) Erythrocyte sedimentation rate auto (06/09/2020 4:45 PM FITNESS DIRECTOR) Patholo gist Method Time Signature Erythrocyte 26 (H) 0 - 20 06/09/2020 HEALTH Sedimentation Rate mm/hr 7:16 PM FITNESS DIRECTOR [facility] Specimen Anatomical Collection Method Collection Time Receive d Time (Source) Location / / Volume Laterality Blood specimen Client Draw / 06/09/2020 4:45 PM 2019 6:06 (specimen) Unknown FITNESS DIRECTOR PM FITNESS DIRECTOR Ruth John MD LAB - BLOOD ORDERABLES Performing Organization Address City/State/ZIP Code Phon [place] [address] [address] [facility] (ABNORMAL) Basic metabolic panel (06/09/2020 4:45 PM FITNESS DIRECTOR) [facility] Method Time Signature Sodium 138 136 - 145 06/09/2020 [facility] mmol/L 7:16 PM [facility] Potassium 4.2 3.5 - 5.0 06/09/2020 HE[facility] mmol/L 7:16 PM [facility] Chloride 106 98 - 107 06/09/2020 [facility] mmol/L 7:16 PM [facility] Carbon Dioxide 24 22 - 31 06/09/2020 [facility] (CO2) mmol/L 7:16 PM [facility] Anion Gap 8 5 - 18 06/09/2020 [facility] mmol/L 7:16 PM [facility] Glucose 102 70 - 125 06/09/2020 [facility] mg/dL 7:16 PM [facility] Calcium 8.9 8.5 - 10.5 06/09/2020 HE[facility] mg/dL 7:16 PM [facility] Urea Nitrogen 23 8 - 28 06/09/2020 [facility] mg/dL 7:16 PM [facility] Creatinine 0.56 (L) 0.60 - 06/09/2020 HEALTH 1.10 mg/dL 7:16 PM [facility] GFR Estimate If >60 >60 06/09/2020 HEALTH Black mL/min/1.7 7:[address] LABORATORY GFR Estimate >60 >60 06/09/2020 HEALTH mL/min/1.7 7:[address] LABORATORY Specimen Anatomical Collection Method Collection Time Receive d Time (Source) Location / / Volume Laterality Blood specimen Client Draw / 06/09/2020 4:45 PM 2019 6:06 (specimen) Unknown FITNESS DIRECTOR PM FITNESS DIRECTOR Narrative [facility] - 06/09/2020 7:16 PM FITNESS DIRECTOR Fasting Glucose reference range is 70-99 mg/dL per [place] [employer] (ADA) shanda bailon. Ruth John MD LAB - BLOOD ORDERABLES Performing Organization Address City/State/ZIP Code Phon e Number [facility] [place] [address] [address] [facility] [place], [place] [address] [phone] [place] [address] documented in this encounter Visit Diagnoses Not on filedocumented in this encounter Additional Health Concerns Assessment Noted Time PHQ-9 Depression Total Score: 4 04/12/2019 7:03 AM CDT documented as of this encounter Care Teams Aviation Electrical Technician Relationship Specialty Start Date End Date Jaiden Holcomb PCP - General Internal Medicine 02/13/2010/03 MD Jayesh [address] [place] [address] Chastity Montero MD Dermatology 09/23/[address] [place] [address] 98 [place], [place] [address] Johnnie Alcocer MD Surgeon General Surgery 03/23/17 [address] [facility] [address] [place], [place] [phone] Danni Marcus, CHANDLER Personal Advocate & 01/09/1901/17 Liaison (PAL) Fernando, Ea Complex 04/23/19 Svetlana Osman, Pharmacist Pharmacotherapy 04/23/19 [facility] [address] [place], [place] [phone] Haylie Cheung, Pharmacist Pharmacist 09/11/19 [facility] [address] [place], [place] [id number] Opal, Assigned Sleep 05/08/20 03/27/21 Kendall Meehan MD Provider [address] [place] [address] Erlinda Barber MD Assigned Neuroscience 05/08/20 01/26/21 [address] [facility] 295 [place] [address] Jaiden Holcomb Assigned PCP 05/24/20 MD Jayesh 909 [place] [address] documented as of this encounter
--- OUTSIDE RECORDS SUMMARY | 2022-06-15 12:50 | XMS_ITS | Encounter Summary ---
:1945 Author Organization [facility] Address [address] [place] [address] Care Team Providers Name Role Phone Chastity Montero MD Unavailable [phone] Johnnie Alcocer MD Unavailable Danni Marcus RN Unavailable Unavailable Mtm, Ea Complex Unavailable Unavailable Svetlana Osman [facility] Unavailable [phone] Haylie Cheung [facility] Unavailable [phone] Jaiden Holcomb MD Primary Care Provider [phone] Kendall Joseph MD Unavailable Erlinda Barber MD Unavailable Jaiden Holcomb MD Unavailable [phone] Reason for Visit Reason Onset Date Comments Home Care/Hospice 06/23/2020 [facility] Encounter Details Date Type Department Care Team Description 06/23/2020 Telephone [facility] Jaiden Holcomb Home Care/Hospice Clinic Yarelis Mcconnell MD ([facility]) [address] [place] [address] [address] [address] [place] [address] [phone] Social History Tobacco Use Types Packs/Day Years [...] contact Unable to assess 06/15/2020 12:38 PM CHIEF CRNA with someone who was confirmed or suspected to have Coronavirus / COVID-19? documented as of this encounter Miscellaneous Notes Telephone Encounter - Jolanta Reddy RN - 07/01/2020 9:39 AM CST Please see another encounter today-Juanita was given a verbal ok to recertify patient for another 60 days. Home care will be able to do labs again. Jolanta Reddy RN Message handled by Nurse Triage. F CRNA Telephone Encounter - Danni Marcus RN - 06/23/2020 10:17 AM CST I spoke with Juanita, assisted living home director, and she advised me that they will have to discharge patient from home care due to length of time they have been seeing patient. Per Medicare guidelines home care is meant to be a temporary care plan, and they have now been seeing patient for 276 days. Patient is capable of leaving her home. She did go to the wound clinic yesterday. This is a chronic wound that is not healing in spite of therapies tried. Patient is not a surgical candidate. The PICC line was pulled after completion of Unasyn IV. Patient has daily cares thru [facility], and they do the dressing changes for patient. Currently home care is just ordering supplies for patient, and she no longer needs to draw INR labs frequently as patient has completed antibiotic treatment. Juanita will see patient today and will discuss with her also. Patient will need to come to clinic for lab draws. Will update complex care team after visit today, and then will discuss with Dr. Holcomb. Ashli Marcus RN F CRNA Telephone Encounter - Gisele Reed - 06/23/2020 9:58 AM CST Juanita, Nurse with [facility] left voicemail at 9:24am Needs to discharge patient, would like to discuss Callback, Thank you Luis E Carreon Web Production Artist - Complex Care Team F CRNA documented in this encounter Plan of Treatment Upcoming Encounters Date Type Specialty Care Team Description 11/15/2022 Virtual Visit Pharm D Haylie Cheung, [facility] [address] [place] [address] (Wo rk) 11/15/2022 Virtual Visit IM/Peds Yane Barraza MD [address] [facility] [place] [address] (Wo rk) 03/03/2023 Virtual Visit Neurology Erlinda Barber MD 420 [facility] 295 [place], [place] [address] (Lena max) documented as of this encounter Visit Diagnoses Not on filedocumented in this encounter Additional Health Concerns Assessment Noted Time PHQ-9 Depression Total Score: 4 04/12/2019 7:03 AM CDT documented as of this encounter Care Teams Electrical/Instrument Technician Relationship Specialty Start Date End Date Jaiden Holcomb PCP - General Internal Medicine 7/30/20 3/20 /22 MD Jayesh [address] [facility] [address] Chastity Montreo MD Dermatology 09/23/14 420 [facility] 98 [place], [place] [address] Johnnie Alcocer MD Surgeon General Surgery 03/23/[address] [place], [place] [address] Danni Marcus, CHANDLER Personal Advocate & 01/09/1901/17 Liaison (PAL) Fernando Ea Complex 04/23/19 Svetlana Osman, Pharmacist Pharmacotherapy 04/23/19 [facility] [address] [place] [address] Haylie Cheung, Pharmacist Pharmacist 09/11/19 [facility] [address] [place], [place] [id number] Opal, Assigned Sleep 05/08/20 03/27/21 Kendall Meehan MD Provider [address] [place], [place] [address] Erlinda Barber MD Assigned Neuroscience 05/08/20 01/26/21 420 [facility] 295 Provider [place], [place] [address] Jaiden Holcomb Assigned PCP 05/24/20 MD Jayesh 909 [place] [address] documented as of this encounter
--- OUTSIDE RECORDS SUMMARY | 2022-06-15 12:51 | XMS_ITS | Encounter Summary ---
:1945 Author Organization [facility] Address [address] [place] [address] Care Team Providers Name Role Phone Chastity Montero MD Unavailable [phone] Johnnie Alcocer MD Unavailable Danni Marcus RN Unavailable Unavailable Mtm, Ea Complex Unavailable Unavailable Svetlana Osman [facility] Unavailable [phone] Haylie Cheung [facility] Unavailable [phone] Galdino Valdez MD Unavailable Jaiden Holcomb MD Primary Care Provider [phone] Kendall Joseph MD Unavailable Erlinda Barber MD Unavailable Encounter Details Date Type Department Care Team Description 05/08/2020 Travel Social History Tobacco Use Types Packs/Day [...] Pharm Haylie Gonzalez, [facility] [address] [facility] [place] [phone] (Wo rk) 11/15/2022 Virtual Visit IM/Yane Mathias MD [address] [place] [address] [place] [id number] (Wo rk) 03/03/2023 Virtual Visit Neurology Erlinda Barber MD [address] [place] [address] 295 [place], [place] [address] (Wo rk) documented as of this encounter Visit Diagnoses Not on filedocumented in this encounter Additional Health Concerns Assessment Noted Time PHQ-9 Depression Total Score: 4 04/12/2019 7:03 AM CDT documented as of this encounter Care Teams Bookstore Manager Relationship Specialty Start Date End Date Jaiden Holcomb PCP - General Internal Medicine 02/13/2010/03 MD Jayesh [address] [place] [address] [place] [phone] Chastity Motnero MD Dermatology 09/23/[address] [place] [address] 98 [place], [place] [address] Johnnie Alcocer MD Surgeon General Surgery 03/23/[address] [place], [place] [phone] Danni Marcus, RN Personal Advocate & 01/09/1901/17 Liaison (PAL) Mtkinsey, Ea Complex 04/23/19 Svetlana Osman, Pharmacist Pharmacotherapy 04/23/19 [facility] [address] [place] [address] Haylie Cheung, Pharmacist Pharmacist 09/11/19 [facility] [address] [place], [place] [phone] Galdino Valdez MD Assigned PCP 11/10/19 05/23/20 [address] [place], [place] [phone] Opal, Assigned Sleep 05/08/20 03/27/21 Kendall Meehan MD Provider [address] [place] [address] Erlinda Barber MD Assigned Neuroscience 05/08/20 01/26/21 [address] [facility] 295 [place] [address] documented as of this encounter
--- OUTSIDE RECORDS SUMMARY | 2022-06-15 12:51 | XMS_ITS | Encounter Summary ---
:1945 Author Organization [place] Address [address] [facility] [place] [address] Care Team Providers Name Role Phone Chastity Montero MD Unavailable [phone] Johnnie Alcocer MD Unavailable Danni Marcus RN Unavailable Unavailable Mtm, Ea Complex Unavailable Unavailable Svetlana Osman [facility] Unavailable [phone] Haylie Cheung [facility] Unavailable [phone] Galdino Valdez MD Unavailable Jaiden Holcomb MD Primary Care Provider [phone] Kendall Joseph MD Unavailable Erlinda Barber MD Unavailable Encounter Details Date Type Department Care Team Description 05/19/2020 Home Infusion [place] [facility] Reva Galvez, [facility] [address] [facility] [address] [place], [place] [phone] [address] [facility] [phone] [place] [address] (Wo rk) Social History Tobacco [...] documented as of this encounter Progress Notes Martha Jacques - 05/19/2020 11:59 PM CST This is a recent snapshot of the patient's [facility] medical record. For current drug dose and complete information and questions, call [phone] or In [facility] ([id number]) CSN Number: [id number] ETING MGR documented in this encounter Plan of Treatment Upcoming Encounters Date Type Specialty Care Team Description 11/15/2022 Virtual Visit Pharm D Haylie Cheung, [facility] [address] [facility] [place] [address] (Wo winter) 11/15/2022 Virtual Visit IM/Peds Yane Barraza MD [address] [facility] [place] [address] (Wo winter) 03/03/2023 Virtual Visit Neurology Erlinda Barber MD [address] [facility] 295 [place], [place] [address] (Wo rk) documented as of this encounter Visit Diagnoses Not on filedocumented in this encounter Additional Health Concerns Assessment Noted Time PHQ-9 Depression Total Score: 4 04/12/2019 7:03 AM CDT documented as of this encounter Care Teams Computer Project Manager Relationship Specialty Start Date End Date Jaiden Holcomb PCP - General Internal Medicine 02/13/2010/03 MD Jayesh [address] [facility] [address] [place] [id number] Chastity Montero MD Dermatology 09/23/14 [address] [facility] 98 [place], [place] [address] Johnnie Alcocer MD Surgeon General Surgery 03/23/17 [address] [facility] 300 [place], [place] [id number] Danni Marcus, CHANDLER Personal Advocate & 01/09/1901/17 Liaison (PAL) Fernando, Ea Complex 04/23/19 Svetlana Osman, Pharmacist Pharmacotherapy 04/23/19 [facility] [address] [place] [address] Haylie Cheung, Pharmacist Pharmacist 09/11/19 [place] [address] [place] [address] Galdino Valdez MD Assigned PCP 11/10/19 05/23/20 [address] [place] [address] Opal, Assigned Sleep 05/08/20 03/27/21 Kendall Meehan MD Provider [address] [facility] 106 [place], [place] [id number] Erlinda Barber MD Assigned Neuroscience 05/08/20 01/26/21 [address] [facility] 295 [place] [address] documented as of this encounter
--- OUTSIDE RECORDS SUMMARY | 2022-06-15 12:51 | XMS_ITS | Encounter Summary ---
:1945 Author Organization [facility] Address [address] [place] [address] Care Team Providers Name Role Phone Chastity Montero MD Unavailable [phone] Johnnie Alcocer MD Unavailable Danni Marcus RN Unavailable Unavailable Mtm, Ea Complex Unavailable Unavailable Svetlana Osman [facility] Unavailable [phone] Haylie Cheung [facility] Unavailable [phone] Galdino Valdez MD Unavailable Jaiden Holcomb MD Primary Care Provider [phone] Kendall Joseph MD Unavailable Erlinda Barber MD Unavailable Jaiden Holcomb MD Unavailable Encounter Details Date Type Department Care Team Description 05/12/2020 Records - [facility] INFECTIOUS [address] [facility] [place], [place] [address] [facility] [address] [facility] [phone] [place], [place] [address] (Wo rk) Social History [...] Pharm D Haylie Cheung, [facility] [address] [place] [address] (Wo rk) 11/15/2022 Virtual Visit IM/Peds Yane Barraza MD [address] [facility] [place] [phone] (Wo rk) 03/03/2023 Virtual Visit Neurology Erlinda Barber MD [address] [facility] [address] [facility] 295 [place] [address] (Wo rk) documented as of this encounter Procedures Procedure Name Priority Date/Time Associated Comments Diagnosis CBC WITH PLATELETS AND Routine 05/12/2020 3:15 PM Results for this DIFFERENTIAL CDT procedure are i n the results section. ERYTHROCYTE Routine 05/12/2020 3:15 PM Results f or this SEDIMENTATION RATE CDT procedure are in AUTO the results section. CRP INFLAMMATION Routine 05/12/2020 3:15 PM Resul ts for this CDT procedure are i n the results section. BASIC METABOLIC PANEL Routine 05/12/2020 3:15 PM Results for this CDT procedure are i n the results section. documented in this encounter Results (ABNORMAL) CBC WITH PLATELETS AND DIFFERENTIAL (05/12/2020 3:15 PM CDT) Analysis Performed At Patho logist Time Signature WBC 6.4 4.0 - 11.0 05/12/2020 [facility] thou/uL 5:07 PM CDT [facility] RBC Count 4.46 3.80 - 05/12/2020 [facility] 5.40 5:07 PM CDT [facility] Hemoglobin 13.7 12.0 - 05/12/2020 [facility] 16.0 g/dL 5:07 PM CDT [facility] Hematocrit 41.2 35.0 - 05/12/2020 [facility] 47.0 % 5:07 PM CDT [facility] MCV 92 80 - 100 05/12/2020 [facility] fL 5:07 PM CDT [facility] MCH 30.7 27.0 - 05/12/2020 [facility] 34.0 pg 5:07 PM CDT [facility] MCHC 33.3 32.0 - 05/12/2020 [facility] 36.0 g/dL 5:07 PM CDT [facility] RDW 13.4 11.0 - 05/12/2020 [facility] 14.5 % 5:07 PM CDT [facility] Platelet Count 244 140 - 440 05/12/2020 [facility] thou/uL 5:07 PM CDT [facility] Mean Platelet 10.1 8.5 - 12.5 05/12/2020 [facility] Volume fL 5:07 PM CDT [facility] % Neutrophils 67 50 - 70 % 05/12/2020 [facility] 5:07 PM CDT [facility] % Lymphocytes 21 20 - 40 % 05/12/2020 [facility] 5:07 PM CDT [facility] % Monocytes 8 2 - 10 % 05/12/2020 [facility] 5:07 PM CDT [facility] % Eosinophils 3 0 - 6 % 05/12/2020 [facility] 5:07 PM CDT [facility] % Basophils 1 0 - 2 % 05/12/2020 [facility] 5:07 PM CDT [facility] % Immature 1 (H) <=0 % 05/12/2020 [facility] Granulocytes 5:07 PM CDT [facility] Absolute 4.3 2.0 - 7.7 05/12/2020 [facility] Neutrophils thou/uL 5:07 PM CDT [facility] Absolute 1.3 0.8 - 4.4 05/12/2020 [facility] Lymphocytes thou/uL 5:07 PM CDT [facility] Absolute 0.5 0.0 - 0.9 05/12/2020 [facility] Monocytes thou/uL 5:07 PM CDT [facility] Eosinophils 0.2 0.0 - 0.4 05/12/2020 [facility] Absolute thou/uL 5:07 PM CDT [facility] Absolute 0.0 0.0 - 0.2 05/12/2020 [facility] Basophils thou/uL 5:07 PM CDT [facility] Absolute Immature 0.0 <=0.0 05/12/2020 [facility] Granulocytes thou/uL 5:07 PM CDT [facility] Specimen Anatomical Collection Method Collection Time Receive d Time (Source) Location / / Volume Laterality Blood specimen 05/12/2020 3:15 PM 020 4:46 (specimen) CDT PM CDT Ruth John MD LAB - BLOOD ORDERABLES Performing Organization Address City/State/ZIP Code Phon e Number [place] [address] [address] [facility] (ABNORMAL) Erythrocyte sedimentation rate auto (05/12/2020 3:15 PM CDT) [facility] Method Time Signature Erythrocyte 27 (H) 0 - 20 05/12/2020 HEALTH Sedimentation Rate mm/hr 6:30 PM CDT [facility] Specimen Anatomical Collection Method Collection Time Receive d Time (Source) Location / / Volume Laterality Blood specimen 05/12/2020 3:15 PM 020 4:46 (specimen) CDT PM CDT Ruth John MD LAB - BLOOD ORDERABLES Performing Organization Address City/State/ZIP Code Phon e [place] [address] [address] [facility] (ABNORMAL) Basic metabolic panel (05/12/2020 3:15 PM CDT) [facility] Method Time Signature Sodium 138 136 - 145 05/12/2020 HEALTH mmol/L 5:48 PM CDT [facility] Potassium 4.4 3.5 - 5.0 05/12/2020 HEALTH mmol/L 5:48 PM CDT [facility] Chloride 106 98 - 107 05/12/2020 [facility] mmol/L 5:48 PM CDT [facility] Carbon Dioxide 24 22 - 31 05/12/2020 [facility] (CO2) mmol/L 5:48 PM CDT [facility] Anion Gap 8 5 - 18 05/12/2020 [facility] mmol/L 5:48 PM CDT [facility] Glucose 87 70 - 125 05/12/2020 [facility] mg/dL 5:48 PM CDT [facility] Calcium 8.9 8.5 - 10.5 05/12/2020 [facility] mg/dL 5:48 PM CDT [facility] Urea Nitrogen 19 8 - 28 05/12/2020 [facility] mg/dL 5:48 PM CDT [facility] Creatinine 0.54 (L) 0.60 - 05/12/2020 HE[facility] 1.10 mg/dL 5:48 PM CDT [facility] GFR Estimate If >60 >60 05/12/2020 HEALTH Black mL/min/1.7 5:48 PM CDT [address] GFR Estimate >60 >60 05/12/2020 [facility] mL/min/1.7 5:[address] PM [address]T [address] LABORATORY Specimen Anatomical Collection Method Collection Time Receive d Time (Source) Location / / Volume Laterality Blood specimen 05/12/2020 3:15 PM 020 4:46 (specimen) CDT PM [facility]T [facility] - 05/12/2020 5:48 PM CDT Fasting Glucose reference range is 70-99 mg/dL per [employer] Diabetes [employer] (ADA) shanda bailon. Ruth John MD LAB - BLOOD ORDERABLES Performing Organization Address City/State/ZIP Code Phon e Number [facility] [place] [id number] [place] [address] [place]AT[place], [place] [address] [place] [address] [phone] [place] [address] CRP inflammation (05/12/2020 3:15 PM CDT) P athologist Signature CRP 0.7 0.0 - 0.8 05/12/2020 HEALTH mg/dL 5:54 PM CDT [facility] Specimen Anatomical Collection Method Collection Time Receive d Time (Source) Location / / Volume Laterality Blood specimen 05/12/2020 3:15 PM 4:46 (specimen) CDT PM CDT Ruth John MD LAB - BLOOD ORDERABLES Performing Organization Address City/State/ZIP Code Phon e Number [facility] [place] [address] [phone] [address] [facility] documented in this encounter Visit Diagnoses Not on filedocumented in this encounter Additional Health Concerns Assessment Noted Time PHQ-9 Depression Total Score: 4 04/12/2019 7:03 AM CDT documented as of this encounter Care Teams Operations Controller Relationship Specialty Start Date End Date Zhang Jaiden PCP - General Internal Medicine 02/13/2010/03 MD Jayesh [address] [facility] [address] [place] [phone] Chastity Montero MD Dermatology 09/23/14 MD [address] [facility] 98 [place] [address] Johnnie Alcocer MD Surgeon General Surgery 03/23/17 [address] [facility] 300 [place], [place] [address] Danni Marcus, CHANDLER Personal Advocate & 01/09/1901/17 Liaison (PAL) Fernando, Ea Complex 04/23/19 Svetlana Osman, Pharmacist Pharmacotherapy 04/23/19 [facility] [address] [place] [address] Haylie Cheung, Pharmacist Pharmacist 09/11/19 [facility] [address] [place], [place] [phone] Galdino Valdez MD Assigned PCP 11/10/19 05/23/20 [address] [place], [place] [phone] Opal, Assigned Sleep 05/08/20 03/27/21 Kendall Meehan MD Provider [address] [place], [place] [address] Erlinda Barber MD Assigned Neuroscience 05/08/20 01/26/[address] [facility] [address] [place] [address] Jaiden Holcomb Assigned PCP 05/24/20 MD Jayesh 909 [place] [address] documented as of this encounter
--- OUTSIDE RECORDS SUMMARY | 2022-06-15 12:51 | XMS_ITS | Encounter Summary ---
:1945 Author Organization [place] Address [address] [place] [address] Care Team Providers Name Role Phone Chastity Montero MD Unavailable [phone] Johnnie Alcocer MD Unavailable Danni Marcus RN Unavailable Unavailable Mtm, Ea Complex Unavailable Unavailable Svetlana Osman [facility] Unavailable [phone] Haylie Cheung [facility] Unavailable [phone] Galdino Valdez MD Unavailable Jaiden Holcomb MD Primary Care Provider [phone] Kendall Joseph MD Unavailable Erlinda Barber MD Unavailable Encounter Details Date Type Department Care Team Description 05/18/2020 Orders Only [facility] Jaiden Holcomb DIAGN OSIS NOT YET Clinic Yarelis Mcconnell MD DEFINED (Primary Dx) [address] [place], [place] [address] [address] [place] [address] Social History Tobacco Use [...] Virtual Visit Pharm D Haylie Cheung, [facility] [address] [facility] [place] [address] (Wo rk) 11/15/2022 Virtual Visit IM/Peds Yane Barraza MD [address] [facility] [place] [address] (Wo rk) 03/03/2023 Virtual Visit Neurology Erlinda Barber MD [address] [facility] 295 [place] [address] (Wo rk) documented as of this encounter Procedures Procedure Name Priority Date/Time Associated Diagnosis Comme nts ND RECERTIFICATION FIBERGLASS PRODUCT TESTER PT Routine 05/18/2020 DIAGNOSIS NO T YET DEFINED documented in this encounter Results MD PATELRTCANDY FIBERGLASS PRODUCT TESTER PT (05/18/2020) Narrative This result has an attachment that is no t available. Jaiden Holcomb MD [employer] documented in this encounter Visit Diagnoses Diagnosis DIAGNOSIS NOT YET DEFINED - Primary documented in this encounter Additional Health Concerns Assessment Noted Time PHQ-9 Depression Total Score: 4 04/12/2019 7:03 AM CDT documented as of this encounter Care Teams Music Librarian Relationship Specialty Start Date End Date Jaiden Holcomb PCP - General Internal Medicine 02/13/2010/[address] [facility] [address] [place] [phone] Chastity Montero MD Dermatology 09/23/14 [address] [facility] 98 [place] [address] Johnnie Alcocer MD Surgeon General Surgery 03/23/17 [address] [facility] 300 [place], [place] [address] Danni Marcus, CHANDLER Personal Advocate & 01/09/1901/17 Liaison (PAL) Mt[place], Ea Complex 04/23/19 Svetlana Osman, Pharmacist Pharmacotherapy 04/23/19 [facility] [address] [place], [place] [phone] Haylie Cheung, Pharmacist Pharmacist 09/11/19 [facility] [address] [place], [place] [phone] Galdino Valdez MD Assigned PCP 11/10/19 05/23/20 [address] [place], [place] [phone] Opal, Assigned Sleep 05/08/20 03/27/21 Kendall Meehan MD Provider [address] [place] [address] Erlinda Barber MD Assigned Neuroscience 05/08/20 01/26/21 [address] [facility] [address] [place] [address] documented as of this encounter
--- OUTSIDE RECORDS SUMMARY | 2022-06-15 12:51 | XMS_ITS | Encounter Summary ---
:1945 Author Organization [facility] Address [address] [place] [address] Care Team Providers Name Role Phone Chastity Montero MD Unavailable [phone] Johnnie Alcocer MD Unavailable Danni Marcus RN Unavailable Unavailable Mtm, Ea Complex Unavailable Unavailable Svetlana Osman [facility] Unavailable [phone] Haylie Cheung [facility] Unavailable [phone] Galdino Valdez MD Unavailable Jaiden Holcomb MD Primary Care Provider [phone] Kendall Joseph MD Unavailable Erlinda Barber MD Unavailable Encounter Details Date Type Department Care Team Description 05/12/2020 Telephone [facility] Wilbur Holcomb MD [address] [address] [address] [place] [address] [phone] Social History Tobacco Use Types Packs/Day Years [...] Telephone Encounter - Danni Marcus, RN - 05/12/2020 2:08 PM CDT LM with approval of home care orders for Physical therapy as noted below per protocol. Advised to call with any other questions or concerns. Ashil Marcus RN Telephone Encounter - Lesvia Casanova - 05/12/2020 1:28 PM CDT Reason for call: Home Healthcare Reason for Call: Home Health Care Manny with [facility] called regarding (reason for call): Req Verbal Orders Orders are needed for this patient. PT PT: 1x a week for 5 weeks For therapeutic exercise Balance training and home exercise program Phone Number Homecare Nurse can be reached at: [phone] Can we leave a detailed message on this number? YES Best Time: any documented in this encounter Plan of Treatment Upcoming Encounters Date Type Specialty Care Team Description 11/15/2022 Virtual Visit Pharm D Haylie Cheung, [facility] [address] [place], [place] [phone] (Wo rk) 11/15/2022 Virtual Visit [place] [address] [place] [address] [place] [address] (Wo rk) 03/03/2023 Virtual Visit Neurology Erlinda Barber MD [address] [place] [address] 295 [place], [place] [address] (Wo rk) documented as of this encounter Visit Diagnoses Not on filedocumented in this encounter Additional Health Concerns Assessment Noted Time PHQ-9 Depression Total Score: 4 04/12/2019 7:03 AM CDT documented as of this encounter Care Teams Interventional Tech Relationship Specialty Start Date End Date Jaiden Holcomb PCP - General Internal Medicine 02/13/2010/03 MD Jayesh [address] [place] [address] [place] [address] Chastity Montero MD Dermatology 09/23/[address] [place] [address] 98 [place], [place] [address] Johnnie Alcocer MD Surgeon General Surgery 03/23/17 [address] [facility] 300 [place], [place] [address] Danni Marcus, CHANDLER Personal Advocate & 01/09/1901/17 Liaison (PAL) Mtkinsey, Ea Complex 04/23/19 Svetlana Osman, Pharmacist Pharmacotherapy 04/23/19 [facility] [address] [place] [address] Haylie Cheung, Pharmacist Pharmacist 09/11/19 [facility] [address] [place], [place] [phone] Galdino Valdez MD Assigned PCP 11/10/19 05/23/[address] [place], [place] [phone] Opal, Assigned Sleep 05/08/20 03/27/21 Kendall Meehan MD Provider [address] [place] [address] Erlinda Braber MD Assigned Neuroscience 05/08/20 01/26/21 [address] [facility] [address] [place] [address] documented as of this encounter
--- OUTSIDE RECORDS SUMMARY | 2022-06-15 12:51 | XMS_ITS | Encounter Summary ---
:1945 Author Organization [place] Address [address] [place] [address] Care Team Providers Name Role Phone Chastity Montero MD Unavailable [phone] Johnnie Alcocer MD Unavailable Danni Marcus RN Unavailable Unavailable Mtm, Ea Complex Unavailable Unavailable Svetlana Osman [facility] Unavailable [phone] Haylie Cheung [facility] Unavailable [phone] Galdino Valdez MD Unavailable Jaiden Holcomb MD Primary Care Provider [phone] Kendall Joseph MD Unavailable Erlinda Barber MD Unavailable Encounter Details Date Type Department Care Team Description 05/22/[address] [facility] Zhang, 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 embolism; Visit Clinic Yarelis Hwang Paroxysmal atrial fibrillati on (H); [address] [place] MD Jayesh long-term current use of anticoagulant t [facility] [address] [place] [address] 200 [facility] [id number] Social History Tobacco [...] encounter Progress Notes Latia Henley RN - 05/22/2020 5:16 PM CST Images from the original note were not included. ANTICOAGULATION MANAGEMENT Patient Name: Charlette Brush Date: 05/22/2020 ASSESSMENT /SUBJECTIVE: Today's INR result of 1.9 is subtherapeutic. Goal INR of 2.0-3.0 ??? Warfarin dose taken: Warfarin taken as instructed ??? Diet: No new diet changes affecting INR ??? Medication changes/ interactions: patient continues on IV ampicillin. Started 2 weeks ago, will continue for at least 6 weeks ??? Previous INR: Therapeutic ??? S/S of bleeding or thromboembolism: No ??? New injury or illness: No ??? Upcoming surgery, procedure or cardioversion: No ??? Additional findings: None PLAN: Telephone call with home care nurse Juanita regarding INR result and instructed: Warfarin Dosing Instructions: Continue your current warfarin dose 5 mg every Mon, Mon; 10 mg all other days Instructed patient to follow up no later than: 1 week Orders given to Homecare nurse/facility to recheck Education provided: Target INR goal and significance of current INR result Juanita verbalizes understanding and agrees to warfarin dosing plan. Instructed to call the Anticoagulation Clinic for any changes, questions or concerns. (#[phone]) Latia Henley RN OBJECTIVE: Recent labs: (last 7 days) 05/22/20 INR 1.9* No question data found. 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 Anticoagulation Care Providers Provider Role Specialty Phone number Galdino Valdez MD Referring Family Medicine [phone] GrahamLucero weller MD Responsible Internal Medicine [phone] SALES AGENT documented in this encounter Plan of Treatment Upcoming Encounters Date Type Specialty Care Team Description 11/15/2022 Virtual Visit Pharm Haylie Gonzalez, [facility] [address] [place] [address] (Wo rk) 11/15/2022 Virtual [place] [address] [place] [address] [place] [id number] (Wo rk) 03/03/2023 Virtual Visit Neurology Erlinda Barber MD [address] [place] [address] 295 [place], [place] [address] (Wo rk) documented as of this encounter Procedures Procedure Name Priority Date/Time Associated Diagnosis Comme nts INR Routine 05/22/2020 Results for thi s procedure are in the resu lts section. documented in this encounter Results (ABNORMAL) INR (05/22/2020) P athologist Signature INR 1.9 (A) 0.90 - 1.10 EXTERNAL LAB Specimen (Source) Anatomical Location Collection Method / Collectio n Time Received Time / Laterality Volume Blood specimen (specimen) Patient Reported LAB - BLOOD ORDERABLES Performing Organization Address City/State/ZIP Code Phon e Number EXTERNAL LAB EXTERNAL LAB External Lab documented in this encounter Visit Diagnoses Diagnosis 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 embolism Paroxysmal atrial fibrillation (H) Atrial fibrillation long-term current use of anticoagulant t herapy documented in this encounter Additional Health Concerns Assessment Noted Time PHQ-9 Depression Total Score: 4 04/12/2019 7:03 AM CDT documented as of this encounter Care Teams Molded Goods Inspector Trimmer Relationship Specialty Start Date End Date Jaiden Holcomb PCP - General Internal Medicine 02/13/2010/03 MD Jayesh [address] [place] [address] [place] [address] Chastity Montero MD Dermatology 09/23/[address] [place] [address] 98 [place] [address] Johnnie Alcocer MD Surgeon General Surgery 03/23/[address] [place], [place] [phone] Danni Marcus, CHANDLER Personal Advocate & 01/09/1901/17 Liaison (PAL) Fernando, Ea Complex 04/23/19 Svetlana Osman, Pharmacist Pharmacotherapy 04/23/19 [facility] [address] [place], [place] [id number] Haylie Cheung, Pharmacist Pharmacist 09/11/19 [facility] [address] [place], [place] [id number] Galdino Valdez MD Assigned PCP 11/10/19 05/23/20 [address] [place] [address] Opal, Assigned Sleep 05/08/20 03/27/21 Kendall Meehan MD Provider [address] [place] [address] Erlinda Barber MD Assigned Neuroscience 05/08/20 01/26/21 [address] [facility] 295 [place] [address] documented as of this encounter
--- OUTSIDE RECORDS SUMMARY | 2022-06-15 12:51 | XMS_ITS | Encounter Summary ---
:1945 Author Organization [place] Address [address] [place] [address] Care Team Providers Name Role Phone Chastity Montero MD Unavailable [phone] Johnnie Alcocer MD Unavailable Danni Marcus RN Unavailable Unavailable Mtm, Ea Complex Unavailable Unavailable Svetlana Osman [facility] Unavailable [phone] Haylie Cheung [facility] Unavailable [phone] Galdino Valdez MD Unavailable Jaiden Holcomb MD Primary Care Provider [phone] Kendall Joseph MD Unavailable Erlinda Barber MD Unavailable Jaiden Holcomb MD Unavailable [phone] Encounter Details Date Type Department Care Team Description 05/22/2020 Records - [facility] CONVERSION Scan, Non-Provider [...] Visit Pharm D Haylie Cheung, [facility] [address] [facility] [facility] [facility] [address] [place] [phone] (Wo rk) 11/15/2022 Virtual Visit IM/Peds Yane Barraza MD [address] [place] [address] [place] [phone] (Wo rk) 03/03/2023 Virtual Visit Neurology Erlinda Barber MD [address] [place] [address] 295 [place], [place] [address] (Wo rk) documented as of this encounter Visit Diagnoses Not on filedocumented in this encounter Additional Health Concerns Assessment Noted Time PHQ-9 Depression Total Score: 4 04/12/2019 7:03 AM CDT documented as of this encounter Care Teams Resident Manager Relationship Specialty Start Date End Date Jaiden Holcomb PCP - General Internal Medicine 02/13/2010/03 MD Jayesh [address] [facility] [place] [phone] Chastity Montero MD Dermatology 09/23/[address] [place] [address] [facility] [address] [place], [place] [address] Johnnie Alcocer MD Surgeon General Surgery 03/23/[address] [place] [address] Danni Marcus, CHANDLER Personal Advocate & 01/09/1901/17 Liaison (PAL) Fernando, Ea Complex 04/23/19 Svetlana Osman, Pharmacist Pharmacotherapy 04/23/19 [facility] [address] [facility] [address] [place], [place] [phone] Haylie Cheung, Pharmacist Pharmacist 09/11/19 [facility] [address] [facility] [address] [place], [place] [phone] Galdino Valdez MD Assigned PCP 11/10/19 05/23/20 [address] [place], [place] [phone] Opal, Assigned Sleep 05/08/20 03/27/21 Kendall Meehan MD Provider [address] [place], [place] [address] Erlinda Barber MD Assigned Neuroscience 05/08/20 01/26/21 420 [facility] 295 Provider [place], [place] [phone] Jaiden Holcomb Assigned PCP 05/24/20 MD Jayesh [address] [place] [address] documented as of this encounter
--- OUTSIDE RECORDS SUMMARY | 2022-06-15 12:51 | XMS_ITS | Encounter Summary ---
:1945 Author Organization [facility] Address [address] [place] [address] Care Team Providers Name Role Phone Chastity Montero MD Unavailable [phone] Johnnie Alcocer MD Unavailable Danni Marcus RN Unavailable Unavailable Mtm, Ea Complex Unavailable Unavailable Svetlana Osman [facility] Unavailable [phone] Haylie Cheung [facility] Unavailable [phone] Galdino Valdez MD Unavailable Jaiden Holcomb MD Primary Care Provider [phone] Kendall Joseph MD Unavailable Erlinda Barber MD Unavailable Jaiden Holcomb MD Unavailable [phone] Reason for Visit Reason Comments Weight Problem mwm Encounter Details Date Type Department Care Team Description 05/20/2020 Office Visit - M [facility] Braxton Lala, Morbid obesity (H) [facility] and MD Bariatrics Care [address] [place] [address] 2945 [facility] Suite [facility] [id number] [place] [address] [phone] (Work) [phone] Social History Tobacco Use Types Packs/Day Years [...] encounter Progress Notes Braxton Lala MD - 05/20/2020 2:45 PM CST Bariatric Clinic Follow-Up Visit: Charlette Brush is a 75 y.o. female with There is no height or weight on file to calculate BMI. presenting here today for follow-up on non-surgical efforts for weight loss. Original Intake visit occurred on 03/27/20 with a weight of 357 lbs and BMI of 55.9. Along with diet and behavior changes, she has been using no medications (she declined naltrexone or other aids) to assist her weight loss goals. See her intake visit notes for details on identified contributors to weight gain in the past. Weight: Wt Readings from Last 2 Encounters: 04/28/20 (!) 349 lb (158.3 kg) 04/08/20 (!) 349 lb (158.3 kg) pounds Height: 5' 7 (1.702 m) (04/08/2020 2:00 PM) Initial Weight: 357 lbs (04/08/2020 2:00 PM) Weight: (!) 349 lb (158.3 kg) (04/28/2020 10:35 AM) Weight loss from initial: 8 (04/08/2020 2:00 PM) % Weight loss: 2.24 % (04/08/2020 2:00 PM) BMI (Calculated): 54.6 (04/08/2020 2:00 PM) Waist Circumference (In): 55.75 Inches (03/27/2020 1:13 PM) Neck Circumference (In): 18.75 Inches (03/27/2020 1:13 PM) Comorbidities: Patient Active Problem List Diagnosis ??? Sleep [...] anemia due to chronic blood loss ??? skilled nursing current use of 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 ??? Lower [...] Microscopic hematuria ??? Infected wound ??? Dysesthesia Current Outpatient Medications: ??? acetaminophen (TYLENOL) 325 MG tablet, Take 975 mg by mouth every 8 (eight) hours as needed for pain., Disp: , Rfl: ??? ampicillin-sulbactam (UNASYN) 3 gram injection, Infuse 3 g into a venous catheter every 6 (six) hours. Or 12 g daily continuous infusion, Disp: 336 g, Rfl: 0 ??? ascorbic acid, vitamin C, (VITAMIN C) 500 MG tablet, Take 500 mg by mouth., Disp: , Rfl: ??? atenolol (TENORMIN) 25 MG tablet, Take 25 mg by mouth 2 (two) times a day., Disp: , Rfl: ??? cetirizine (ZYRTEC) 10 MG tablet, Take 10 mg by mouth 2 (two) times a day., Disp: , Rfl: ??? cholecalciferol, vitamin D3, 500 unit, Take 200 Units by mouth., Disp: , Rfl: ??? desoximetasone (TOPICORT) 0.05 % Gel, Apply twice daily as needed to arms and legs, Disp: , Rfl: ??? ferrous sulfate 325 (65 FE) MG tablet, Take 325 mg by mouth., Disp: , Rfl: ??? hydroCHLOROthiazide (HYDRODIURIL) 12.5 MG tablet, Take 12.5 mg by mouth., Disp: , Rfl: ??? hydrocortisone 2.5 % ointment, Apply topically 2 (two) times a day., Disp: , Rfl: ??? levETIRAcetam (KEPPRA) 500 MG tablet, Take 500 mg by mouth 2 (two) times a day. , Disp: , Rfl: ??? losartan (COZAAR) 50 MG tablet, Take 50 mg by mouth daily., Disp: , Rfl: ??? sdxarqdffzta-pwennfno-vkolea (CEROVITE SENIOR) tablet, Take 1 tablet by mouth at bedtime., Disp:, Rfl: ??? nystatin (MYCOSTATIN) cream, Apply topically., Disp: , Rfl: ??? sodium hypochlorite (DAKIN'S, HALF-STRENGTH,) external solution, Irrigate with as directed daily., Disp: , Rfl: ??? triamcinolone (KENALOG) 0.1 % ointment, Apply topically., Disp: , Rfl: ??? warfarin (COUMADIN) 10 MG tablet, Take 10 mg by mouth daily., Disp: , Rfl: ??? zinc gluconate 50 mg tablet, Take daily for 2 weeks, then reduce to every other day use until bottle runs out., Disp: 50 tablet, Rfl: 0 Current Facility-Administered Medications: ??? lidocaine 2 % jelly (XYLOCAINE), , Topical, PRN, Patience Toussaint, MANAGER ETHICS Interim: Since our last visit, she has now received a picc line for ampicillin use, hadn't bought any gut repair metagenics product. Finished her 7 days of glutamate, using zinc for now on every other day use, no upset stomach. Using [facility] [facility] probiotic use. No diarrhea. Using fish oil ([employer]), one spoonful daily. INR 2.1. Reviewed risks of bariatric surgery and she's not in favor of that tool given her wound/fraility issues. Notes that after our visit lost some weight, a few days ago, weight 363 lbs. Lymphedema contributingworse in my legs now. Getting some IV fluids w/ her antibiotics (400ml/24 hours). Feels like her meal intake is less than previously and finds that extra protein intake is taking care of any hunger urges. Reviewed her RMR data and protein goals from her advertising operations coordinator visit. Monitors her hydrochlorothiazide needs by measuring if her lymphedema pump apparatus gets too tight.Has been tripping pressures on pumps last week. We discussed [facility] Plan: 1. Follow up with advertising operations coordinator in May, I'll see you about 6 weeks later. 2. Given your resting metabolic rate of just over 2100kcal/day aiming for 1500- 1600kcal/day and about 30 grams of protein at 3 meals daily, every 5 hours or so should get you back on track with weight reduction. Meals of 400-550kcal should be about right in size. 3. You can have your zinc and copper levels checked anytime to make sure the supplementation is not excessive. For now, continue every other day use of zinc along with your fish oil/probiotic. I'd avoid using glutamate more than 7-10 days out of every 3 months. You could pulse another week of use in Late June. 4. Continue your lymphedema care plan of exercises /elevation/pumps and wraps. 5. We discussed risks/benefits of bariatric surgery and given active infection/treament with IV antibiotics, your age and anticoagulation the higher risk of complications outweighs the benefit likely obtained. 6. Plenity is now available (expansive gel taken before lunch and supper) but is more expensive thanuseful at $98/month. We can come back to that should costs come down. 7. If crave reduction desired, naltrexone would be an option for you but other appetite suppressantsare likely to interact with your other medications. t Bariatric Basics including: -eating 3 meals daily -eating protein first -eating slowly, chewing food well -avoiding/limiting calorie containing beverages -We discussed the importance of restorative sleep and stress management in maintaining a healthy weight. -We discussed the National Weight Control Registry healthy weight maintenance strategies and ways tooptimize metabolism. -We discussed the importance of physical activity including cardiovascular and strength training in maintaining a healthier weight and explored viable options. Most recent labs: Lab Results Component Value Date WBC 4.9 05/19/2020 HGB 13.3 05/19/2020 HCT 40.5 05/19/2020 MCV 94 05/19/2020 PLT 201 05/19/2020 No results found for: CHOL No results found for: HDL No results found for: LDLCALC No results found for: TRIG No components found for: CHOLHDL Lab Results Component Value Date ALT 15 06/04/2019 AST 13 05/19/2020 ALKPHOS 112 06/04/2019 BILITOT 0.7 06/04/2019 No results found for: HGBA1C Lab Results Component Value Date [id number] 624 03/27/2020 Lab Results Component Value Date [id number] 47.0 03/27/2020 Lab Results Component Value Date FERRITIN 130 03/27/2020 Lab Results Component Value Date PTH 75 03/27/2020 No results found for: 95451 No results found for: 7597 No results found for: TSH No results found for: TESTOSTERONE DIETARY HISTORY Feeling good satiety w/ increased protein. No evening snacks many nights now. PHYSICAL ACTIVITY PATTERNS: Cardiovascular: limited Strength Training: limited REVIEW OF SYSTEMS GENERAL/CONSTITUTIONAL: No fever. HEENT: na CARDIOVASCULAR: na PULMONARY: no cough GASTROINTESTINAL: No diarrhea UROLOGIC: n/a NEUROLOGIC: n/a PSYCHIATRIC: Feels good overall MUSCULOSKELETAL/RHEUMATOLOGIC picc line in now, no issues identified ENDOCRINE: na DERMATOLOGIC: Wound debridement yesterday went well at lymphedema clinic. PHYSICAL EXAM: Vitals: There were no vitals taken for this visit. Height: 5' 7 (1.702 m) (04/08/2020 2:00 PM) Initial Weight: 357 lbs (04/08/2020 2:00 PM) Weight: (!) 349 lb (158.3 kg) (04/28/2020 10:35 AM) Weight loss from initial: 8 (04/08/2020 2:00 PM) % Weight loss: 2.24 % (04/08/2020 2:00 PM) BMI (Calculated): 54.6 (04/08/2020 2:00 PM) Waist Circumference (In): 55.75 Inches (03/27/2020 1:13 PM) Neck Circumference (In): 18.75 Inches (03/27/2020 1:13 PM) GEN: Pleasant, well groomed, in no acute distress Normal speech/cognition. No tremor. No pallor or jaundice. 25 minutes was spent in direct consultation, with over 50% of it spent in counseling regarding theirplan for excess weight reduction and health modification. Braxton Lala MD [facility] 2:41 PM IAL EDUCATION MATH TEACHER documented in this encounter Miscellaneous Notes Patient Instructions - HE - Braxton Lala MD - 05/20/2020 2:45 PM CST Plan: 1. Follow up with advertising operations coordinator in May, I'll see you about 6 weeks later. 2. Given your resting metabolic rate of just over 2100kcal/day aiming for 1500- 1600kcal/day and about 30 grams of protein at 3 meals daily, every 5 hours or so should get you back on track with weight reduction. Meals of 400-550kcal should be about right in size. 3. You can have your zinc and copper levels checked anytime to make sure the supplementation is not excessive. For now, continue every other day use of zinc along with your fish oil/probiotic. I'd avoid using glutamate more than 7-10 days out of every 3 months. You could pulse another week of use in Late June. 4. Continue your lymphedema care plan of exercises /elevation/pumps and wraps. 5. We discussed risks/benefits of bariatric surgery and given active infection/treament with IV antibiotics, your age and anticoagulation the higher risk of complications outweighs the benefit likely obtained. 6. Plenity is now available (expansive gel taken before lunch and supper) but is more expensive thanuseful at $98/month. We can come back to that should costs come down. 7. If crave reduction desired, naltrexone would be an option for you but other appetite suppressantsare likely to interact with your other medications. 8. A cup of bone broth in the mid afternoon (4-8oz) may be reasonable for extra protein/low calorie tool. LEAN PROTEIN SOURCES Getting 20-30 grams of [...] Portion Calories Grams of Protein Nonfat, plain Frisian yogurt (10 grams sugar or less) 3/4 [...] (broiled, grilled, baked) 3 ounces 100 21 [place]/Tuna (broiled, grilled, baked) 3 ounces 150-180 21 Shrimp, Scallops, Lobster, Crab 3 ounces 100 21 Pork loin, Pork Tenderloin 3 ounces 150 21 Boneless, skinless chicken /turkey breast (broiled, grilled, baked) 3 ounces 120 21 [place], [place], [place], and Venison 3 ounces 120 21 Lean cuts of red meat and pork (sirloin, round, tenderloin, flank, ground 93%-96%) 3 ounces 170 21 Lean or Extra Lean Ground [place] 1/2 cup 150 20 90-95% Lean [place] Burger 1 melanie 140-180 21 Low-fat casserole with lean meat 3/4 cup 200 17 Luncheon Meats (turkey, lean ham, roast beef, chicken) 3 ounces 100 21 Egg (boiled, poached, scrambled) 1 Egg 60 7 Egg Substitute 1/2 cup 70 10 Nuts (limit to 1 serving per day) 3 Tbsp. 150 7 Nut [place] (peanut, almond) Limit to 1 serving or less daily 1 Tbsp. 90 4 Soy Burger (varies) 1 90-130 15 Garbanzo, Black, Mena Beans 1/2 cup 110 7 Refried Beans 1/2 cup 100 7 Kidney and Michaels beans 1/2 cup 110 7 Tempeh 3 oz 175 18 Vegan crumbles 1/2 cup 100 14 Tofu 1/2 cup 110 14 [place] (beans and extra lean beef or turkey) 1 cup 200 23 Lentil Stew/Soup 1 cup 150 12 Black Campbell Soup 1 cup 175 12 Example Meal Plan for a 9879-8794 Calorie Diet: In order to fuel your [...] low in olive oil: 90-100 calories. 5oz Frisian Yogurt (Fage plain classic: ~150 michael) Handful [...] Water Dinner: 325 calories 4oz of fresh, [place] salmon. Broiled (salt/pepper/dill) for about 8-8.5 minutes [...] your plan execution. 5. Call if problems/concerns. Prosodichart is a great tool to stay in [...] all micronutrients are adequate during weight loss. IAL EDUCATION MATH TEACHER documented in this encounter Plan of Treatment Upcoming Encounters Date Type Specialty Care Team Description 11/15/2022 Virtual Visit Pharm Haylie Gonzalez, [facility] [address] [place] [address] [place] [phone] (Wo rk) 11/15/2022 Virtual Visit [place] [address] [place] [address] [place] [phone] (Wo rk) 03/03/2023 Virtual Visit Neurology Erlinda Barber MD [address] [facility] 295 [place], [place] [address] (Wo rk) documented as of this encounter Visit Diagnoses Diagnosis Morbid obesity (H) Morbid obesity documented in this encounter Additional Health Concerns Assessment Noted Time PHQ-9 Depression Total Score: 4 04/12/2019 7:03 AM CDT documented as of this encounter Care Teams Canary Breeder Relationship Specialty Start Date End Date Jaiden Holcomb PCP - General Internal Medicine 02/13/2010/03 MD Jayesh [address] [facility] [place] [phone] Chastity Montero MD Dermatology 09/23/14 [address] [facility] [address] [place], [place] [address] Johnnie Alcocer MD Surgeon General Surgery 03/23/[address] [place] [address] Danni Marcus, CHANDLER Personal Advocate & 01/09/1901/17 Liaison (PAL) Fernando, Ea Complex 04/23/19 Svetlana Osman, Pharmacist Pharmacotherapy 04/23/19 [facility] [address] [facility] [address] [place], [place] [phone] Haylie Cheung, Pharmacist Pharmacist 09/11/19 [facility] [address] [facility] [address] [place], [place] [phone] Galdino Valdez MD Assigned PCP 11/10/19 05/23/20 [address] [place], [place] [phone] Opal, Assigned Sleep 05/08/20 03/27/21 Kendall Meehan MD Provider [address] [place], [place] [address] Erlinda Barber MD Assigned Neuroscience 05/08/20 01/26/21 [address] [facility] [address] Provider [place], [place] [phone] Jaiden Holcomb Assigned PCP 05/24/20 MD Jayesh [address]09 [place], [place] [phone] documented as of this encounter
--- OUTSIDE RECORDS SUMMARY | 2022-06-15 12:51 | XMS_ITS | Encounter Summary ---
:1945 Author Organization [facility] Address [address] [place] [address] Care Team Providers Name Role Phone Chastity Montero MD Unavailable [phone] Johnnie Alcocer MD Unavailable Danni Marcus RN Unavailable Unavailable Mtm, Ea Complex Unavailable Unavailable Svetlana Osman [facility] Unavailable [phone] Haylie Cheung [facility] Unavailable [phone] Galdino Valdez MD Unavailable Jaiden Holcomb MD Primary Care Provider [phone] Knedall Joseph MD Unavailable Erlinda Barber MD Unavailable Jaiden Holcomb MD Unavailable [phone] Reason for Visit Reason Comments Wound Check Encounter Details Date Type Department Care Team Description 05/18/2020 Office Visit - [facility] Patience Toussaint NP Pressure injury of left ischium, stage 4 (H); [facility] [address] Chronic os teomyelitis, pelvis, left (H); [facility] Morbid obesity with BMI of 50.0-59.9, ad ult (H); [address] Lymphedema of both lower extremities; [place] [address] [place], [place] Venous hypertension [place], [place] [address] [phone] Social History Tobacco Use Types Packs/Day Years [...] Sign Reading Time Taken Comments Blood Pressure 132/96 05/18/2020 3:44 PM SALES OPERATIONS ANALYST Pulse 60 05/18/2020 3:44 PM SALES OPERATIONS ANALYST Temperature 36.7 ??C (98.1 ??F) 05/18/2020 3:44 PM SALES OPERATIONS ANALYST Respiratory Rate - - Oxygen Saturation - - Inhaled Oxygen Concentration - - Weight - - Height - - Body Mass Index - - documented in this encounter Progress Notes Patience Toussaint NP - 05/18/2020 3:40 PM CST Images from the original note were not included. Progress Notes by Patience Toussaint NP at 05/18/2020 3:40 PM Author: Patience Toussaint NP Service: -- Author Type: Nurse Practitioner Filed: 05/18/2020 5:05 PM Encounter Date: 05/18/2020 Status: Signed Radius Corner Machine Operator: Patience Toussaint NP (Nurse Practitioner) Follow up Vascular Visit Date of Service:05/18/2020 Date Last Seen: 03/24/2020; 04/22/2020 Chief Complaint: stage 4 pressure injury to the left ischial tuberosity Pt returns to [facility] Vascular with regards to their stage 4 pressure injury to the left IT. They arrive today alone; she was dropped off by her sister. She was last seen by Dr. Huggins; the vac has been discontinued; tissue biopsy was done to help guide antimicrobial treatment driven by ID to treat her osteomyelitis. She is now on IV unasyn; tolerating well.. They are currently using silvercel and bordered foam to the wounds. This is being done by aides from [facility] daily; the dressing frequently will fall off during restroom use or from being saturated. She is workingwith bariatrics on her weight; states she is focusing on protein in the diet but is gaining weight. They are using velcro wraps bilaterally for compression. They are feeling well today. Denies fevers, chills. No shortness of breath. Allergies: Cephalexin, Ciprofloxacin, Clindamycin, Lanolin, Lisinopril, Mupirocin, Neomycin, and Penicillins Medications: Current Outpatient Medications: ? acetaminophen (TYLENOL) 325 MG tablet, Take 975 mg by mouth every 8 (eight) hours as needed for pain., Disp: , Rfl: ? ampicillin-sulbactam (UNASYN) 3 gram injection, Infuse 3 g into a venous catheter every 6 (six) hours. Or 12 g daily continuous infusion, Disp: 336 g, Rfl: 0 ? ascorbic acid, vitamin C, (VITAMIN C) [...] by mouth daily., Disp: , Rfl: ? tptgejowreho-odqkqsff-ftocnf (CEROVITE SENIOR) tablet, Take 1 tablet by [...] Patient has appointment with Retina Specialist at [facility] on 01/11. 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 ? Morbid obesity [...] Referral placed for Dr. Kajal Huggins at [facility] in [place] per patient request. She has contact i [...] Weakness left lower limb Physical Exam: BP (!) 132/96 (Patient Site: Left Arm, Patient Position: Sitting, Cuff Size: Adult Regular) Pulse 60 Temp 98.1 ??F (36.7 ??C) (Oral) General: Patient presents to clinic in no apparent distress. Head: normocephalic atraumatic Psychiatric: Alert and oriented x3. Respiratory: unlabored breathing; no cough Integumentary: Skin is uniformly warm, dry and pink. Wound #1 Location: left IT Size: 7x4x6.5cmdepth. No sinus tract present, Wound base: red; viable; noovert bone exposed or probed No undermining present. Wound is full thickness. There is heavy; copious serous drainage. Periwound: no denudement, erythema, induration, maceration or warmth. Circumferential volume measures: No flowsheet data found. Ulceration(s)/Wound(s): VASC Wound 05/15/19 Buttocks (Active) Pre Size Length 7 05/18/20 1500 Pre Size Width 4 05/18/20 1500 Pre Size Depth 6.5 05/18/20 1500 Pre Total Sq cm 40 04/21/20 1400 Post Size Length 8.5 04/21/20 1400 [...] Values Lab Results Component Value Date SEDRATE 27 (H) 05/12/2020 Lab Results Component Value Date CREATININE 0.54 (L) 05/12/2020 No results found for: HGBA1C Lab Results Component Value Date BUN 19 05/12/2020 Lab Results Component Value Date ALBUMIN 3.3 (L) 06/04/2019 Vitamin D, Total (25-Hydroxy) Date Value Ref Range Status 03/27/2020 47.0 30.0 - 80.0 ng/mL Final Impression: 1. Pressure injury of left ischium, stage 4 (H) Change dressing 2. Chronic osteomyelitis, pelvis, left (H) 3. Morbid obesity with BMI of 50.0-59.9, adult (H) 4. Lymphedema of both lower extremities 5. Venous hypertension of lower extremity, bilateral 05/18/2020 Left IT Are any of these wounds new [...] 6.5 cm. Ulcers were improved afterwards and hat cleaner. Measures were unchanged after debridement. 2. Wound treatment: wound treatment will include irrigation and dressings to promote autolytic debridement which will include:due to drainage amount and location of wound; will need daily wound cares;continue silver calcium alginate cover with bordered foam or tegaderm + pad for better adhesion; create a flat surface to apply the dressing; continue to work with ID on underlying osteomeylitis Stable 3. Edema: continue elevation and velcro . The compression wraps were applied today in clinic. Stable 4. Nutrition: continue to work with Bariatrics on weight loss; without significant weight loss we will not be able to heal this wound; I sent message to Dr. Lala re: this; pt is not a good surgical candidate due to her age and co-morbidities; she has declined weight loss medications in the past 5. Offloading: has roho cushion; needs to position off the wound at all times Patient will follow up with me in 4 weeks for reevaluation. They were instructed to call the clinicsooner with any signs or symptoms of infection or any further questions/concerns. Answered all questions. Patience Toussaint DNP, RN, IT SECURITY PROJECT MANAGER, CWOCN, CFCN, CLT [facility] [phone] This note was electronically signed by Patience Toussaint S OPERATIONS ANALYST documented in this encounter Miscellaneous Notes Patient Instructions - HE - Patience Toussaint NP - 05/18/2020 3:40 PM CST We will fax orders to [facility] home nursing home care to order supplies Wound Care Instructions daily aides and/or nursing to Cleanse your left buttocks wound(s) with Dilute hibiclens 30cc in 500cc NS Pat Dry with non-sterile gauze Apply skin prep to skin surrounding the wound Apply aquacel ag rope into/onto the wounds Cover with either tegaderm + pad (#[id number] 7.5x8 3/4) or bordered foam dressing such as mepilex [...] than this please contact our office at [phone]. Patience Toussaint DNP, RN, IT SECURITY PROJECT MANAGER, [facility] [phone] S OPERATIONS ANALYST documented in this encounter Plan of Treatment Upcoming Encounters Date Type Specialty Care Team Description 11/15/2022 Virtual Visit Pharm D Haylie Cheung, [facility] [address] [facility] [place] [address] (Lena max) 11/15/2022 Virtual Visit [place] [address] [place] [address] [place] [phone] (Lena max) 03/03/2023 Virtual Visit Neurology Erlinda Barber MD [address] [facility] 295 [place] [address] (Lena max) documented as of this encounter Visit Diagnoses Diagnosis Pressure injury of left ischium, stage 4 (H) Chronic osteomyelitis, pelvis, left (H) Morbid obesity with BMI of 50.0-59.9, ad ult (H) Lymphedema of both lower extremities Venous hypertension of lower extremity, bilateral documented in this encounter Additional Health Concerns Assessment Noted Time PHQ-9 Depression Total Score: 4 04/12/2019 7:03 AM CDT documented as of this encounter Care Teams Etcher Enameling Relationship Specialty Start Date End Date Jaiden Holcomb PCP - General Internal Medicine 02/13/2010/03 MD Jayesh [address] [facility] [address] [place] [id number] Chastity Montero MD Dermatology 09/23/14 420 [facility] 98 [place] [address] Johnnie Alcocer MD Surgeon General Surgery 03/23/[address] [place] [address] Danni Marcus, CHANDLER Personal Advocate & 01/09/1901/17 Liaison (PAL) Fernando, Ea Complex 04/23/19 Svetlana Osman, Pharmacist Pharmacotherapy 04/23/19 [facility] [address] [place] [address] Haylie Cheung, Pharmacist Pharmacist 09/11/19 [facility] [address] [place] [address] Galdino Valdez MD Assigned PCP 11/10/19 05/23/20 [address] [place], [place] [phone] Opal, Assigned Sleep 05/08/20 03/27/21 Kendall Meehan MD Provider [address] [place], [place] [phone] Erlinda Barber MD Assigned Neuroscience 05/08/20 01/26/21 [address] [facility] [address] [place] [address] Jaiden Holcomb Assigned PCP 05/24/20 MD Jayesh [address] [place] [address] documented as of this encounter
--- OUTSIDE RECORDS SUMMARY | 2022-06-15 12:51 | XMS_ITS | Encounter Summary ---
:1945 Author Organization [facility] Address [address] [place] [address] Care Team Providers Name Role Phone Chastity Montero MD Unavailable [phone] Johnnie Alcocer MD Unavailable Danni Marcus RN Unavailable Unavailable Mtm, Ea Complex Unavailable Unavailable Svetlana Osman [facility] Unavailable [phone] Haylie Cheung [facility] Unavailable [phone] Galdino Valdez MD Unavailable Jaiden Holcomb MD Primary Care Provider [phone] Kendall Joseph MD Unavailable Erlinda Barber MD Unavailable Jaiden Holcomb MD Unavailable Encounter Details Date Type Department Care Team Description 05/19/2020 Records - [facility] INFECTIOUS [address] DISEASE [facility] [place], [place] [address] [facility] [address] [facility], [facility] [phone] [place], [place] [address] (Wo rk) Social History [...] or relatives? How often do you attend hoahaoism or More than 4 times per year 05/03/2021 muslim services? Do you belong to any clubs or No 05/03/2021 organizations such as hoahaoism groups, unions, fraternal or athletic groups, or [...] D Haylie Cheung, [facility] [address] [place] [address] (Wo rk) 11/15/2022 Virtual Visit IM/Peds Yane Barraza MD [address] [facility] [place] [id number] (Wo rk) 03/03/2023 Virtual Visit Neurology Erlinda Barber MD [address] [facility] [address] [place] [address] (Wo rk) documented as of this encounter Procedures Procedure Name Priority Date/Time Associated Comments Diagnosis CBC WITH PLATELETS AND Routine 05/19/2020 9:15 AM Results for this DIFFERENTIAL WATER PURIFIER procedure are i n the results section. ERYTHROCYTE Routine 05/19/2020 9:15 AM Results f or this SEDIMENTATION RATE WATER PURIFIER procedure are in AUTO the results section. AST Routine 05/19/2020 9:15 AM Results f or this WATER PURIFIER procedure are i n the results section. documented in this encounter Results AST (05/19/2020 9:15 AM WATER PURIFIER) P athologist Signature AST 13 0 - 40 U/L 05/19/2020 [facility] 1:03 PM WATER PURIFIER [facility] Specimen Anatomical Collection Method Collection Time Receive d Time (Source) Location / / Volume Laterality Blood specimen Client Draw / 05/19/2020 9:15 AM 2019 (specimen) Unknown WATER PURIFIER 12:13 PM WATER PURIFIER Ruth John MD LAB - BLOOD ORDERABLES Performing Organization Address City/State/[facility] Phon e [place] [address] [address] [facility] CBC WITH PLATELETS AND DIFFERENTIAL (05/19/2020 9:15 AM WATER PURIFIER) Analysis Performed At Patho logist Time Signature WBC 4.9 4.0 - 11.0 05/19/2020 [facility] thou/uL 1:08 PM [facility] RBC Count 4.32 3.80 - 05/19/2020 [facility] 5.40 1:08 PM [facility] Hemoglobin 13.3 12.0 - 05/19/2020 [facility] 16.0 g/dL 1:08 PM [facility] Hematocrit 40.5 35.0 - 05/19/2020 [facility] 47.0 % 1:08 PM [facility] MCV 94 80 - 100 05/19/2020 [facility] fL 1:08 PM [facility] MCH 30.8 27.0 - 05/19/2020 [facility] 34.0 pg 1:08 PM [facility] MCHC 32.8 32.0 - 05/19/2020 [facility] 36.0 g/dL 1:08 PM [facility] RDW 13.6 11.0 - 05/19/2020 [facility] 14.5 % 1:08 PM WATER PURIFIER [facility] Platelet Count 201 140 - 440 05/19/2020 [facility] thou/uL 1:08 PM [facility] Mean Platelet 10.6 8.5 - 12.5 05/19/2020 [facility] Volume fL 1:08 PM WATER PURIFIER [facility] % Neutrophils 67 50 - 70 % 05/19/2020 [facility] 1:08 PM [facility] % Lymphocytes 21 20 - 40 % 05/19/2020 [facility] 1:08 PM WATER PURIFIER [facility] % Monocytes 9 2 - 10 % 05/19/2020 [facility] 1:08 PM WATER PURIFIER [facility] % Eosinophils 4 0 - 6 % 05/19/2020 [facility] 1:08 PM WATER PURIFIER [facility] % Basophils 1 0 - 2 % 05/19/2020 [facility] 1:08 PM WATER PURIFIER [facility] % Immature 0 <=0 % 05/19/2020 [facility] Granulocytes 1:08 PM WATER PURIFIER [facility] Absolute 3.2 2.0 - 7.7 05/19/2020 [facility] Neutrophils thou/uL 1:08 PM WATER PURIFIER [facility] Absolute 1.0 0.8 - 4.4 05/19/2020 [facility] Lymphocytes thou/uL 1:08 PM WATER PURIFIER [facility] Absolute 0.4 0.0 - 0.9 05/19/2020 [facility] Monocytes thou/uL 1:08 PM WATER PURIFIER [facility] Eosinophils 0.2 0.0 - 0.4 05/19/2020 [facility] Absolute thou/uL 1:08 PM WATER PURIFIER [employer] [facility] Absolute 0.0 0.0 - 0.2 05/19/2020 [facility] Basophils thou/uL 1:08 PM WATER PURIFIER [facility] Absolute Immature 0.0 <=0.0 05/19/2020 [facility] Granulocytes thou/uL 1:08 PM [facility] Specimen Anatomical Collection Method Collection Time Receive d Time (Source) Location / / Volume Laterality Blood specimen Client Draw / 05/19/2020 9:15 AM 2019 (specimen) Unknown WATER PURIFIER 12:13 PM WATER PURIFIER Ruth John MD LAB - BLOOD ORDERABLES Performing Organization Address [facility] Phon [place] [address] [address] [facility] Erythrocyte sedimentation rate auto (05/19/2020 9:15 AM WATER PURIFIER) [facility] Method Time Signature Erythrocyte 18 0 - 20 05/19/[address] [facility] Sedimentation Rate mm/hr 2:44 PM WATER PURIFIER [facility] Specimen Anatomical Collection Method Collection Time Receive d Time (Source) Location / / Volume Laterality Blood specimen Client Draw / 05/19/2020 9:15 AM 2019 (specimen) Unknown WATER PURIFIER 12:13 PM WATER PURIFIER Ruth John MD LAB - BLOOD ORDERABLES Performing Organization Address City/[facility] Phon [place] [address] [address] [facility] documented in this encounter Visit Diagnoses Not on filedocumented in this encounter Additional Health Concerns Assessment Noted Time PHQ-9 Depression Total Score: 4 04/12/2019 7:03 AM CDT documented as of this encounter Care Teams Retail Planning Manager Relationship Specialty Start Date End Date Jaiden Holcomb PCP - General Internal Medicine 02/13/2010/03 MD Jayesh [address] [facility] [place] [phone] Chastity Montero MD Dermatology 09/23/14 [facility] [address] [place], [place] [address] Johnnie Alccoer MD Surgeon General Surgery 03/23/[address] [place], [place] [address] Danni Marcus, RN Personal Advocate & 01/09/1901/17 Liaison (PAL) [place], Ea Complex 04/23/19 Svetlana Osman, Pharmacist Pharmacotherapy 04/23/19 [facility] [address] [place], [place] [phone] Haylie Cheung, Pharmacist Pharmacist 09/11/19 [facility] [address] [place], [place] [phone] Galdino Valdez MD Assigned PCP 11/10/19 05/23/20 [address] [place], [place] [phone] Opal, Assigned Sleep 05/08/20 03/27/21 Kendall Meehan MD Provider [address] [place], [place] [phone] Erlinda Barber MD Assigned Neuroscience 05/08/20 01/26/21 [address] [facility] [address] Provider [place], [place] [phone] Jaiden Holcomb Assigned PCP 05/24/20 MD Jayesh [address] [place], [place] [phone] documented as of this encounter
--- OUTSIDE RECORDS SUMMARY | 2022-06-15 12:51 | XMS_ITS | Encounter Summary ---
:1945 Author Organization [facility] Address [address] [place] [address] Care Team Providers Name Role Phone Chastity Montero MD Unavailable [phone] Johnnie Alcocer MD Unavailable Danni Marcus RN Unavailable Unavailable Mtm, Ea Complex Unavailable Unavailable Svetlana Osman [facility] Unavailable [phone] Haylie Cheung [facility] Unavailable [phone] Jaiden Holcomb MD Primary Care Provider Kendall Joseph MD Unavailable Erlinda Barber MD Unavailable Jaiden Holcomb MD Unavailable [phone] Reason for Visit Reason Onset Date Comments Home Care/Hospice 06/02/2020 OT order Encounter Details Date Type Department Care Team Description 06/02/2020 Telephone [facility] Jaiden Holcomb Home Care/Hospice (OT Clinic Yarelis Mcconnell MD order) [address] [address] [place] [address] [phone] Social History Tobacco Use Types Packs/Day Years [...] Telephone Encounter - Danni Marcus, RN - 06/03/2020 10:12 AM CST I called home care chaplain, Juanita, and verbal approval given for OT per protocol. No further questions. Will call back if any other questions or concerns. Ashli Marcus RN L HOLE CORNERER Telephone Encounter - Gisele Reed - 06/02/2020 3:39 PM CST Juanita, Nurse with [facility] left voicemail at 3:25pm Order for OT to help with assistive devices if there are any, to help keep urine off of her wound dressing Callback, Thank you Luis E Carreon Window Shade Ring Coverer - Complex Care Team L HOLE CORNERER documented in this encounter Plan of Treatment Upcoming Encounters Date Type Specialty Care Team Description 11/15/2022 Virtual Visit Pharm D Haylie Cheung, [facility] [address] [place] [address] (Wo rk) 11/15/2022 Virtual Visit [place] [address] [place] [address] [place] [address] (Wo rk) 03/03/2023 Virtual Visit Neurology Erlinda Barber MD [address] [place] [address] 295 [place], [place] [address] (Wo rk) documented as of this encounter Visit Diagnoses Not on filedocumented in this encounter Additional Health Concerns Assessment Noted Time PHQ-9 Depression Total Score: 4 04/12/2019 7:03 AM CDT documented as of this encounter Care Teams Hair Spring Winder Relationship Specialty Start Date End Date Jaiden Holcomb PCP - General Internal Medicine 02/13/2010/03 MD Jayesh [address] [place] [address] [address] [place], [place] [phone] Chastity Montero MD Dermatology 09/23/[address] [place] [address] 98 [place], [place] [address] Johnnie Alcocer MD Surgeon General Surgery 03/23/17 [address] [facility] [facility] [address] [place], [place] [phone] Danni Marcus, CHANDLER Personal Advocate & 01/09/1901/17 Liaison (PAL) Mtkinsey, Ea Complex 04/23/19 Svetlana Osman, Pharmacist Pharmacotherapy 04/23/19 [facility] [address] [place], [place] [phone] Haylie Cheung, Pharmacist Pharmacist 09/11/19 [facility] [address] [place] [address] Opal Assigned Sleep 05/08/20 03/27/21 Kendall Meehan MD Provider [address] [place] [address] Erlinda Barber MD Assigned Neuroscience 05/08/20 01/26/21 420 [facility] [address] [place] [address] Jaiden Holcomb Assigned PCP 05/24/20 MD Jayesh 909 [place] [address] documented as of this encounter
--- OUTSIDE RECORDS SUMMARY | 2022-06-15 12:51 | XMS_ITS | Encounter Summary ---
:1945 Author Organization [place] Address [address] [place] [address] Care Team Providers Name Role Phone Chastity Montero MD Unavailable [phone] Johnnie Alcocer MD Unavailable Danni Marcus RN Unavailable Unavailable Mtm, Ea Complex Unavailable Unavailable Svetlana Osman [facility] Unavailable [phone] Haylie Cheung [facility] Unavailable [phone] Galdino Valdez MD Unavailable Jaiden Holcomb MD Primary Care Provider [phone] Kendall Joseph MD Unavailable Erlinda Barber MD Unavailable Jaiden Holcomb MD Unavailable [phone] Encounter Details Date Type Department Care Team Description 05/20/2020 [facility], [facility] and [facility] Bariatrics Care [address] [address] Social History Tobacco Use Types [...] Haylie Cheung, [facility] 1440 [facility] [place] [phone] (Wo winter) 11/15/2022 Virtual [place] [address] [place] [address] [place] [phone] (Wo winter) 03/03/2023 Virtual Visit Neurology Erlinda Barber MD 420 [facility] 295 [place] [address] (Wo rk) documented as of this encounter Visit Diagnoses Not on filedocumented in this encounter Additional Health Concerns Assessment Noted Time PHQ-9 Depression Total Score: 4 04/12/2019 7:03 AM CDT documented as of this encounter Care Teams Supervisor Blood Relationship Specialty Start Date End Date Jaiden Holcomb PCP - General Internal Medicine 02/13/2010/03 MD Jayesh [address] [place] [address] [place] [address] Chastity Montero MD Dermatology 09/23/14 420 [facility] 98 [place], [place] [address] Johnnie Alcocer MD Surgeon General Surgery 03/23/[address] 300 [place], [place] [address] Danni Marcus, CHANDLER Personal Advocate & 01/09/1901/17 Liaison (PAL) Fernando, Ea Complex 04/23/19 Svetlana Osman, Pharmacist Pharmacotherapy 04/23/19 [facility] [address] [place], [place] [phone] Haylie Cheung, Pharmacist Pharmacist 09/11/19 [facility] [address] [facility] [address] [place], [place] [phone] Galdino Valdez MD Assigned PCP 11/10/19 05/23/20 [address] [place], [place] [phone] Opal, Assigned Sleep 05/08/20 03/27/21 Kendall Meehan MD Provider [address] [place], [place] [address] Erlinda Barber MD Assigned Neuroscience 05/08/20 01/26/21 420 [facility] 295 [place] [address] Jaiden Holcomb Assigned PCP 05/24/20 MD Jayesh 909 [place], [place] [id number] documented as of this encounter
--- OUTSIDE RECORDS SUMMARY | 2022-06-15 12:51 | XMS_ITS | Encounter Summary ---
:1945 Author Organization [place] Address [address] [place] [address] Care Team Providers Name Role Phone Chastity Montero MD Unavailable [phone] Johnnie Alcocer MD Unavailable Danni Marcus RN Unavailable Unavailable Mtm, Ea Complex Unavailable Unavailable Svetlana Osman [facility] Unavailable [phone] Haylie Cheung [facility] Unavailable [phone] Jaiden Holcomb MD Primary Care Provider [phone] Kendall Joseph MD Unavailable Erlinda Barber MD Unavailable Jaiden Holcomb MD Unavailable [phone] Encounter Details Date Type Department Care Team Description 05/26/2020 Records - [facility] INFECTIOUS [address] [facility] [place], [place] [address] [facility] [address] [facility] [phone] [place], [place] [address] (Wo rk) Social History [...] Visit Pharm D Haylie Cheung, [facility] 1440 [facility] [place] [address] (Lena max) 11/15/2022 Virtual Visit IM/Peds Yane Barraza MD 3305 [facility] [place] [address] (Wo winter) 03/03/2023 Virtual Visit Neurology Erlinda Barber MD 420 [facility] 295 [place] [address] (Wo winter) documented as of this encounter Procedures Procedure Name Priority Date/Time Associated Comments Diagnosis CBC WITH PLATELETS AND Routine 05/26/2020 3:15 PM Results for this DIFFERENTIAL SNOW TECHNICIAN procedure are i n the results section. ERYTHROCYTE Routine 05/26/2020 3:15 PM Results f or this SEDIMENTATION RATE SNOW TECHNICIAN procedure are in AUTO the results section. CRP INFLAMMATION Routine 05/26/2020 3:15 PM Resul ts for this SNOW TECHNICIAN procedure are i n the results section. AST Routine 05/26/2020 3:15 PM Results f or this SNOW TECHNICIAN procedure are i n the results section. BASIC METABOLIC PANEL Routine 05/26/2020 3:15 PM Results for this SNOW TECHNICIAN procedure are i n the results section. documented in this encounter Results AST (05/26/2020 3:15 PM SNOW TECHNICIAN) P athologist Signature AST 22 0 - 40 U/L 05/26/2020 [facility] 6:57 PM SNOW TECHNICIAN [facility] Specimen Anatomical Collection Method Collection Time Receive d Time (Source) Location / / Volume Laterality Blood specimen Client Draw / 05/26/2020 3:15 PM 2019 4:22 (specimen) Unknown SNOW TECHNICIAN PM SNOW TECHNICIAN Ruth John MD LAB - BLOOD ORDERABLES Performing Organization Address [facility]/State/ZIP Code Phon [place] [address] [address] [facility] (ABNORMAL) CBC WITH PLATELETS AND DIFFERENTIAL (05/26/2020 3:15 PM SNOW TECHNICIAN) Patholo gist Method Time Signature WBC 6.0 4.0 - 11.0 05/26/2020 [facility] thou/uL 4:43 PM [facility] RBC Count 4.60 3.80 - 05/26/2020 [facility] 5.40 4:43 PM [facility]/uL [facility] Hemoglobin 14.0 12.0 - 05/26/2020 [facility] 16.0 g/dL 4:43 PM [facility] Hematocrit 42.7 35.0 - 05/26/2020 HE[facility] 47.0 % 4:43 PM [facility] MCV 93 80 - 100 05/26/2020 [facility] fL 4:43 PM [facility] MCH 30.4 27.0 - 05/26/2020 [facility] 34.0 pg 4:43 PM [facility] MCHC 32.8 32.0 - 05/26/2020 M [facility] 36.0 g/dL 4:43 PM [facility] Erid[facility] TechnologyCLEVEL[facility] CLIN[facility] FAIR[facility] HOSPITALPillars4LifeST[facility] RDW 13.5 11.0 - 05/26/2020 HE[facility] 14.5 % 4:43 PM [facility] Platelet Count 227 140 - 440 05/26/2020 [facility] thou/uL 4:43 PM [facility]Life[facility] Mean Platelet 10.7 8.5 - 12.5 05/26/2020 [facility]ALTH Volume fL 4:43 PM SNOW TECHNICIAN Eridan TechnologyCLEVELAND CLINIC FAIR[facility]OSPITALPillars4LifeST[facility] % Neutrophils 71 (H) 50 - 70 % 05/26/2020 M [facility] 4:43 PM [facility]ill[facility]Life[facility] % Lymphocytes 18 (L) 20 - 40 % 05/26/2020 [facility] 4:43 PM [facility]ITAL[facility]Talk[facility] % Monocytes 7 2 - 10 % 05/26/2020 HE[facility] 4:43 PM SNOW TECHNICIAN What the TrendST. [facility]ARN[facility]WISeKey[facility] % Eosinophils 3 0 - 6 % 05/26/2020 [facility] 4:43 PM [facility] % Basophils 1 0 - 2 % 05/26/2020 HE[facility] 4:43 PM SNOW TECHNICIAN What the TrendST[facility] % Immature 0 <=0 % 05/26/2020 HEALTH Granulocytes 4:43 PM Media [facility] Absolute 4.3 2.0 - 7.7 05/26/2020 M [facility] Neutrophils thou/uL 4:43 PM [facility] Absolute 1.1 0.8 - 4.4 05/26/2020 HEALTH Lymphocytes thou/uL 4:43 PM SNOW TECHNICIAN What the TrendST. [facility]ARNARD[facility]IS[facility] Absolute 0.4 0.0 - 0.9 05/26/2020 HEALTH Monocytes thou/uL 4:43 PM SNOW TECHNICIAN [facility] Eosinophils 0.2 0.0 - 0.4 05/26/2020 M [facility] Absolute thou/uL 4:43 PM SNOW TECHNICIAN [facility] Absolute 0.0 0.0 - 0.2 05/26/2020 M [facility] Basophils thou/uL 4:43 PM SNOW TECHNICIAN [facility] Absolute Immature 0.0 <=0.0 05/26/2020 HEALTH Granulocytes thou/uL 4:43 PM SNOW TECHNICIAN [facility] Specimen Anatomical Collection Method Collection Time Receive d Time (Source) Location / / Volume Laterality Blood specimen Client Draw / 05/26/2020 3:15 PM 2019 4:22 (specimen) Unknown SNOW TECHNICIAN PM SNOW TECHNICIAN Ruth John MD LAB - BLOOD ORDERABLES Performing Organization Address City/[facility] Phon [place] [address] [address] [facility] CRP inflammation (05/26/2020 3:15 PM SNOW TECHNICIAN) P athologist Signature CRP 0.6 0.0 - 0.8 05/26/2020 [facility] mg/dL 6:59 PM SNOW TECHNICIAN [facility] Specimen Anatomical Collection Method Collection Time Receive d Time (Source) Location / / Volume Laterality Blood specimen Client Draw / 05/26/2020 3:15 PM 2019 4:22 (specimen) Unknown SNOW TECHNICIAN PM SNOW TECHNICIAN Ruth John MD LAB - BLOOD ORDERABLES Performing Organization Address [facility] Phon e Number [facility] [place] [address] [address] [facility] Erythrocyte sedimentation rate auto (05/26/2020 3:15 PM SNOW TECHNICIAN) Patholo gist Method Time Signature Erythrocyte 18 0 - 20 05/26/2020 HEALTH Sedimentation Rate mm/hr 6:[address] [facility] Specimen Anatomical Collection Method Collection Time Receive d Time (Source) Location / / Volume Laterality Blood specimen Client Draw / 05/26/2020 3:15 PM 2019 4:22 (specimen) Unknown SNOW TECHNICIAN PM SNOW TECHNICIAN Ruth John MD LAB - BLOOD ORDERABLES Performing Organization Address City/[facility]/ZIP Code Phon [place] [address] [address] [facility] (ABNORMAL) Basic metabolic panel (05/26/2020 3:15 PM SNOW TECHNICIAN) [facility] Method Time Signature Sodium 139 136 - 145 05/26/2020 HEALTH mmol/L 6:57 PM [facility] Potassium 4.3 3.5 - 5.0 05/26/2020 HEALTH mmol/L 6:57 PM [facility] Chloride 106 98 - 107 05/26/2020 HEALTH mmol/L 6:57 PM [facility] Carbon Dioxide 24 22 - 31 05/26/2020 HEALTH (CO2) mmol/L 6:57 PM [facility] Anion Gap 9 5 - 18 05/26/2020 HEALTH mmol/L 6:57 PM [facility] Glucose 92 70 - 125 05/26/2020 HEALTH mg/dL 6:57 PM [facility] Calcium 8.8 8.5 - 10.5 05/26/2020 [facility] mg/dL 6:57 PM [facility] Urea Nitrogen 18 8 - 28 05/26/2020 [facility] mg/dL 6:57 PM [facility] Creatinine 0.57 (L) 0.60 - 05/26/2020 HEALTH 1.10 mg/dL 6:57 PM [facility] GFR Estimate If >60 >60 05/26/2020 HEALTH Black mL/min/1.7 6:[address] LABORATORY GFR Estimate >60 >60 05/26/2020 HEALTH mL/min/1.7 6:[address] LABORATORY Specimen Anatomical Collection Method Collection Time Receive d Time (Source) Location / / Volume Laterality Blood specimen Client Draw / 05/26/2020 3:15 PM 2019 4:22 (specimen) Unknown SNOW TECHNICIAN PM SNOW TECHNICIAN Narrative [facility] - 05/26/2020 6:57 PM SNOW TECHNICIAN Fasting Glucose reference range is 70-99 mg/dL per [place] [employer] (ADA) shanda bailon. Ruth John MD LAB - BLOOD ORDERABLES Performing Organization Address City/State/ZIP Code Phon e Number [facility] [address] [place] [address] LABORATORY [employer], [place] [address] [phone] [place] [address] documented in this encounter Visit Diagnoses Not on filedocumented in this encounter Additional Health Concerns Assessment Noted Time PHQ-9 Depression Total Score: 4 04/12/2019 7:03 AM CDT documented as of this encounter Care Teams Brim Plater Relationship Specialty Start Date End Date Jaiden Holcomb PCP - General Internal Medicine 02/13/2010/03 MD Jayesh [address] [place] [address] Chastity Montero MD Dermatology 09/23/[address] [place] [address] 98 [place], [place] [address] Johnnie Alcocer MD Surgeon General Surgery 03/23/17 [address] [facility] 300 [place], [place] [phone] Danni Marcus, CHANDLER Personal Advocate & 01/09/1901/17 Liaison (PAL) Fernando, Ea Complex 04/23/19 Svetlana Osman, Pharmacist Pharmacotherapy 04/23/19 [facility] [address] [place] [address] Haylie Cheung, Pharmacist Pharmacist 09/11/19 [facility] [address] [place], [place] [phone] Opal, Assigned Sleep 05/08/20 03/27/21 Kendall Meehan MD Provider [address] [place] [address] Erlinda Barber MD Assigned Neuroscience 05/08/20 01/26/21 420 [facility] 295 [place] [address] Jaiden Holcomb Assigned PCP 05/24/20 MD Jayesh 909 [place] [address] documented as of this encounter
--- OUTSIDE RECORDS SUMMARY | 2022-06-15 12:51 | XMS_ITS | Encounter Summary ---
:1945 Author Organization [place] Address [address] [place] [address] Care Team Providers Name Role Phone Chastity Montero MD Unavailable [phone] Johnnie Alcocer MD Unavailable Danni Marcus RN Unavailable Unavailable Mtm, Ea Complex Unavailable Unavailable Svetlana Osman [facility] Unavailable [phone] Haylie Cheung [facility] Unavailable [phone] Galdino Valdez MD Unavailable Jaiden Holcomb MD Primary Care Provider Kendall Joseph MD Unavailable Erlinda Barber MD Unavailable Encounter Details Date Type Department Care Team Description 05/15/2020 Anticoagulation Therapy [facility] Zhang, 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 embolism; Visit Clinic Yarelis Hwang Paroxysmal atrial fibrillati on (H); [address] [place] MD Jayesh jail current use of anticoagulant t [facility] [address] [place] [address] 200 [facility] [address] Social History Tobacco Use [...] or relatives? How often do you attend druze or More than 4 times per year 05/03/2021 gnosticist services? Do you belong to any clubs or No 05/03/2021 organizations such as druze groups, unions, fraternal or athletic groups, or [...] encounter Progress Notes Sasha Rueda RN - 05/15/2020 4:12 PM CDT ANTICOAGULATION MANAGEMENT Patient Name: Charlette Brush Date: 05/15/2020 ASSESSMENT /SUBJECTIVE: Today's INR result of 2.1 is therapeutic. Goal INR of 2.0-3.0 ??? Warfarin dose taken: Warfarin taken as instructed ??? Diet: No new diet changes affecting INR ??? Medication changes/ interactions: Taking Unasyn via IV and warfarin may increase risk of bleeding, but not expected to affect INR ??? Previous INR: Therapeutic ??? S/S of bleeding or thromboembolism: No ??? New injury or illness: No ??? Upcoming surgery, procedure or cardioversion: No ??? Additional findings: Patient on IV Unasyn for 6 weeks. Started 1 week ago. No interactions with INR expected PLAN: Telephone call with home care nurse Juanita regarding INR result and instructed: Warfarin Dosing Instructions: Continue your current warfarin dose 5 mg Tu, Mon; 10 mg all other days Instructed patient to follow up no later than: 1 week Orders given to Homecare nurse/facility to recheck Education provided: Monitoring for bleeding signs and symptoms and Monitoring for clotting signs andsymptoms Nurse Juanita verbalizes understanding and agrees to warfarin dosing plan. Instructed to call the Anticoagulation Clinic for any changes, questions or concerns. (#[phone]) Sasha Rueda RN OBJECTIVE: Recent labs: (last 7 days) 05/15/20 INR 2.1* No question data found. 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 Anticoagulation Care Providers Provider Role Specialty Phone number Galdino Valdez MD Referring Family Medicine [phone] [facility] Hospital[facility] MD Responsible Internal Medicine [phone] documented in this encounter Plan of Treatment Upcoming Encounters Date Type Specialty Care Team Description 11/15/2022 Virtual Visit Pharm Haylie Gonzalez, [facility] [address] [place], [place] [phone] (Wo rk) 11/15/2022 Virtual Visit IM/Peds Yane Barraza MD 76[address] [facility] [place] [address] (Wo rk) 03/03/2023 Virtual Visit Neurology Erlinda Barber MD 420 [facility] 295 [place], [place] [address] (Wo rk) documented as of this encounter Procedures Procedure Name Priority Date/Time Associated Diagnosis Comme nts INR Routine 05/15/2020 Results for thi s procedure are in the resu lts section. documented in this encounter Results (ABNORMAL) INR (05/15/2020) athologist Signature INR 2.1 (A) 0.90 - 1.10 EXTERNAL LAB Specimen (Source) Anatomical Location Collection Method / Collectio n Time Received Time / Laterality Volume Blood specimen 05/15/2020 (specimen) Resulting Agency Comment Home INR Patient Reported LAB - BLOOD ORDERABLES Performing Organization Address City/State/ZIP Code Phon e Number EXTERNAL LAB EXTERNAL LAB External Lab documented in this encounter Visit Diagnoses Diagnosis 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 embolism Paroxysmal atrial fibrillation (H) Atrial fibrillation jail current use of anticoagulant t herapy documented in this encounter Additional Health Concerns Assessment Noted Time PHQ-9 Depression Total Score: 4 04/12/2019 7:03 AM CDT documented as of this encounter Care Teams Hospital Product Specialist Relationship Specialty Start Date End Date Jaiden Holcomb PCP - General Internal Medicine 02/13/2010/03 MD Jayesh [address] [place] [address] Chastity Montero MD Dermatology 09/23/14 420 [facility] 98 [place], [place] [address] Johnnie Alcocer MD Surgeon General Surgery 03/23/[address] [place], [place] [address] Danni Marcus, RN Personal Advocate & 01/09/1901/17 Liaison (PAL) Mtm, Ea Complex 04/23/19 Svetlana Osman, Pharmacist Pharmacotherapy 04/23/19 [facility] [address] [place], [place] [phone] Haylie Cheung, Pharmacist Pharmacist 09/11/19 [facility] [address] [place], [place] [phone] Galdino Valdez MD Assigned PCP 11/10/19 05/23/20 [address] [place], [place] [phone] Opal, Assigned Sleep 05/08/20 03/27/21 Kendall Meehan MD Provider [address] [place] [address] Erlinda Barber MD Assigned Neuroscience 05/08/20 01/26/21 [address] [facility] 295 [place] [address] documented as of this encounter
--- OUTSIDE RECORDS SUMMARY | 2022-06-15 12:51 | XMS_ITS | Encounter Summary ---
:1945 Author Organization [place] Address [address] [place] [address] Care Team Providers Name Role Phone Chastity Montero MD Unavailable [phone] Johnnie Alcocer MD Unavailable Danni Marcus RN Unavailable Unavailable Mtm, Ea Complex Unavailable Unavailable Svetlana Osman [facility] Unavailable [phone] Haylie Cheung [facility] Unavailable [phone] Jaiden Holcomb MD Primary Care Provider [phone] Kendall Joseph MD Unavailable Erlinda Barber MD Unavailable Jaiden Holcomb MD Unavailable [phone] Encounter Details Date Type Department Care Team Description 05/27/2020 Home Infusion [facility] Reva Galvez, [facility] [address] [place], [place] [phone] 9[address] [facility] [phone] [place] [address] (Wo rk) Social History Tobacco [...] this encounter Progress Notes Yelena Meier - 05/27/2020 11:59 PM CST This is a recent snapshot of the patient's [facility] medical record. For current drug dose and complete information and questions, call [phone] or In Writer.ly [place] ([id number]) CSN Number: [id number] OMIC DEVELOPER documented in this encounter Plan of Treatment Upcoming Encounters Date Type Specialty Care Team Description 11/15/2022 Virtual Visit Pharm D Haylie Cheung, [facility] 1440 [facility] [place] [address] (Lena max) 11/15/2022 Virtual Visit IM/Peds Yane Barraza MD [address] [facility] [place] [address] (Wo winter) 03/03/2023 Virtual Visit Neurology Erlinda Barber MD 420 [facility] 295 [place], [place] [address] (Wo rk) documented as of this encounter Visit Diagnoses Not on filedocumented in this encounter Additional Health Concerns Assessment Noted Time PHQ-9 Depression Total Score: 4 04/12/2019 7:03 AM CDT documented as of this encounter Care Teams Automobile Racer Relationship Specialty Start Date End Date Jaiden Holcomb PCP - General Internal Medicine 02/13/2010/03 MD Jayesh [address] [facility] [address] [place] [phone] Chastity Montero MD Dermatology 09/23/[address] [place], [place] [address] Johnnie Alcocer MD Surgeon General Surgery 03/23/17 [address] [facility] 300 [place] [address] Danni Marcus, CHANDLER Personal Advocate & 01/09/1901/17 Liaison (PAL) Fernando, Ea Complex 04/23/19 Svetlana Osman, Pharmacist Pharmacotherapy 04/23/19 [facility] [address] [place] [address] Haylie Cheung, Pharmacist Pharmacist 09/11/19 [place] [address] [place] [address] Opal, Assigned Sleep 05/08/20 03/27/21 Kendall Meehan MD Provider [address] [place], [place] [address] Erlinda Barber MD Assigned Neuroscience 05/08/20 01/26/21 420 [facility] 295 Provider [place], [place] [address] Jaiden Holcomb Assigned PCP 05/24/20 MD Jayesh 909 [place], [place] [address] documented as of this encounter
--- OUTSIDE RECORDS SUMMARY | 2022-06-15 12:51 | XMS_ITS | Encounter Summary ---
:1945 Author Organization [place] Address [address] [facility] [place] [address] Care Team Providers Name Role Phone Chastity Montero MD Unavailable [phone] Johnnie Alcocer MD Unavailable Danni Marcus RN Unavailable Unavailable Mtm, Ea Complex Unavailable Unavailable Svetlana Osman [facility] Unavailable [phone] Haylie Cheung [facility] Unavailable [phone] Galdino Valdez MD Unavailable Jaiden Holcomb MD Primary Care Provider [phone] Kendall Joseph MD Unavailable Erlinda Barber MD Unavailable Encounter Details Date Type Department Care Team Description 05/13/2020 Home Infusion [facility] Reva Galvez, [facility] [address] [facility] [address] [place], [place] [phone] [address] [facility] [phone] [place] [address] (Wo rk) Social History Tobacco [...] this encounter Progress Notes Amparo Mijares - 05/13/2020 11:59 PM CDT This is a recent snapshot of the patient's [facility] medical record. For current drug dose and complete information and questions, call [phone] or In [facility] ([id number]) CSN Number: [id number] documented in this encounter Plan of Treatment Upcoming Encounters Date Type Specialty Care Team Description 11/15/2022 Virtual Visit Pharm D Haylie Cheung, [facility] [address] [facility] [place] [address] (Wo winter) 11/15/2022 Virtual Visit IM/Peds Yane Barraza MD [address] [facility] [place] [address] (Wo winter) 03/03/2023 Virtual Visit Neurology Erlinda Barber MD [address] [facility] 295 [place], [place] [address] (Wo rk) documented as of this encounter Visit Diagnoses Not on filedocumented in this encounter Additional Health Concerns Assessment Noted Time PHQ-9 Depression Total Score: 4 04/12/2019 7:03 AM CDT documented as of this encounter Care Teams Torque Tester Relationship Specialty Start Date End Date Jaiden Holcomb PCP - General Internal Medicine 02/13/2010/03 MD Jayesh [address] [facility] [address] [place] [id number] Chastity Montero MD Dermatology 09/23/14 [address] [facility] 98 [place], [place] [address] Johnnie Alcocer MD Surgeon General Surgery 03/23/17 [address] [facility] 300 [place], [place] [id number] Danni Marcus, CHANDLER Personal Advocate & 01/09/1901/17 Liaison (PAL) Fernando, Ea Complex 04/23/19 Svetlana Osman, Pharmacist Pharmacotherapy 04/23/19 [facility] [address] [place] [address] Haylie Cheung, Pharmacist Pharmacist 09/11/19 [place] [address] [place] [address] Galdino Valdez MD Assigned PCP 11/10/19 05/23/20 [address] [place] [address] Opal, Assigned Sleep 05/08/20 03/27/21 Kendall Meehan MD Provider [address] [facility] 106 [place], [place] [id number] Erlinda Barber MD Assigned Neuroscience 05/08/20 01/26/21 [address] [facility] 295 [place] [address] documented as of this encounter
--- OUTSIDE RECORDS SUMMARY | 2022-06-15 12:51 | XMS_ITS | Encounter Summary ---
:1945 Author Organization [place] Address [address] [place] [address] Care Team Providers Name Role Phone Chastity Montero MD Unavailable [phone] Johnnie Alcocer MD Unavailable Danni Marcus RN Unavailable Unavailable Mtm, Ea Complex Unavailable Unavailable Svetlana Osman [facility] Unavailable [phone] Haylie Cheung [facility] Unavailable [phone] Jaiden Holcomb MD Primary Care Provider [phone] Kendall Joseph MD Unavailable Erlinda Barber MD Unavailable Jaiden Holcomb MD Unavailable [phone] Reason for Visit Reason Comments Nutrition Counseling Encounter Details Date Type Department Care Team Description 06/02/2020 Office Visit - M [facility] Provider, Morbid o besity with BMI of 50.0-59.9, adult (H); [facility] and Historical Nutrition al counseling Bariatrics Care [address] [address] Social History Tobacco Use Types [...] - Oxygen Saturation - - Inhaled Oxygen - - Concentration Weight 161.9 kg (357 lb) 06/02/2020 4:00 PM patient steven romero self AUTOMATION DEVELOPER this morning Height 170.2 cm (5' 7) 06/02/2020 4:00 PM AUTOMATION DEVELOPER Body Mass Index 55.91 06/02/2020 4:00 PM AUTOMATION DEVELOPER documented in this encounter Progress Notes Aurea Shannon, VIRA - 06/02/2020 4:30 PM CST Charlette Brush is a 75 y.o. female who is being evaluated via a billable video visit. The patient has been notified of following: This video visit will be conducted via a call between you and your physician/provider. We have found that certain health care needs can be provided without the need for an in-person physical exam. This service lets us provide the care you need with a video conversation. If a prescription is necessarywe can send it directly to your pharmacy. If lab work is needed we can place an order for that and you can then stop by our lab to have the test done at a later time. Video visits are billed at different rates depending on your insurance coverage. Please reach out toyour insurance provider with any questions. If during the course of the call the physician/provider feels a video visit is not appropriate, you will not be charged for this service. Patient has given verbal consent to a Video visit? Yes How would you like to obtain your AVS? AVS Preference: MyChart. If dropped by the video visit, the video invitation should be sent to: Send to e-mail at: [email or web address] Will anyone else be joining your video visit? No Video Start Time: 4:31 PM Medical Weight Loss Follow-Up Diet Evaluation Assessment: Charlette is presenting today for a follow up weight management nutrition consultation. Pt has had an initial appointment with Dr. Lala Pt's Initial Weight: 357 lbs Weight: (!) 357 lb (161.9 kg) (patient weighed self this morning) Weight loss from initial: 0 % Weight loss: 0 % BMI: Body mass index is 55.91 kg/m??. Gilman body weight: 61.6 kg (135 lb 12.9 oz) Adjusted ideal body weight: 101.7 kg (224 lb 4.5 oz) Estimated RMR (Rufe-St Jeor equation): 2122 kcals Recommended Protein Intake: 100 grams of protein/day Patient Active Problem List: [...] anemia due to chronic blood loss ??? 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 Lower [...] Microscopic hematuria ??? Infected wound ??? Dysesthesia Progress on goals from last visit: PICC line for about a month, continues to have a wound- patient states this is about the same. Patient has not made many changes in diet. Dietary Recall: Breakfast: eats a little bit before aid comes- 20g protein bar and drinks 1/2 protein shake (15g) 3 hours later- 3 scrambled eggs and a glass of milk- sometimes has fruit Lunch: 20g protein bar- tries to have a light lunch Dinner: lean meat, salad/veggies Yogurt and berries for bedtime snack Beverages: 3-4 bottles per day Exercise: PT- pedal bike- 60min, walking outside (20-30min) Nutrition Diagnosis: Overweight/Obesity (NC 3.3) related to overeating and poor lifestyle habits as evidenced by patient report of lack of activity, frequent snacking and BMI 55.91 Intervention: 1. Food and/or nutrient delivery: continued to encourage aiming for 100g protein per day and keepingdiet consistent Monitoring/Evaluation: Goals: 1. 100g protein per day Patient to follow up in 2 months(s) with bariatrician and 3-4 month(s) with VIRA Video-Visit Details Type of service: Video Visit Video End Time (time video stopped): 5:00p Originating Location (pt. Location): Home Distant Location (provider location): [facility] [place] Platform used for Video Visit: Yossi Shannon RD MATION DEVELOPER documented in this encounter Plan of Treatment Upcoming Encounters Date Type Specialty Care Team Description 11/15/2022 Virtual Visit Haylie Wakefield, [facility] [address] [facility] [address] [place], [place] [phone] (Wo rk) 11/15/2022 Virtual Visit [place] [address] [place] [address] [place] [phone] (Wo rk) 03/03/2023 Virtual Visit Neurology Erlinda Barber MD [address] [facility] [address] [place], [place] [phone] (Wo winter) documented as of this encounter Visit Diagnoses Diagnosis Morbid obesity with BMI of 50.0-59.9, ad ult (H) Nutritional counseling documented in this encounter Additional Health Concerns Assessment Noted Time PHQ-9 Depression Total Score: 4 04/12/2019 7:03 AM CDT documented as of this encounter Care Teams Powerhouse Mechanic Helper Relationship Specialty Start Date End Date Jaiden Holcomb PCP - General Internal Medicine 02/13/2010/03 MD Jayesh [address] [place] [address] [place] [address] Chastity Montero MD Dermatology 09/23/14 [address] [facility] 98 [place], [place] [address] Johnnie Alcocer MD Surgeon General Surgery 03/23/17 [address] [facility] [address] [place], [place] [address] Danni Marcus, CHANDLER Personal Advocate & 01/09/1901/17 Liaison (PAL) Fernando, Ea Complex 04/23/19 Svetlana Osman, Pharmacist Pharmacotherapy 04/23/19 [facility] [address] [place] [address] Haylie Cheung, Pharmacist Pharmacist 09/11/19 [facility] [address] [place] [phone] Opal, Assigned Sleep 05/08/20 03/27/21 Kendall Meehan MD Provider [address] [address] [place] [address] Erlinda Barber MD Assigned Neuroscience 05/08/20 01/26/21 [address] [facility] 295 [place] [address] Jaiden Holcomb Assigned PCP 05/24/20 MD Jayesh 909 [place] [address] documented as of this encounter
--- OUTSIDE RECORDS SUMMARY | 2022-06-15 12:51 | XMS_ITS | Encounter Summary ---
:1945 Author Organization [place] Address [address] [place] [address] Care Team Providers Name Role Phone Chastity Montero MD Unavailable [phone] Johnnie Alcocer MD Unavailable Danni Marcus RN Unavailable Unavailable Mtm, Ea Complex Unavailable Unavailable Svetlana Osman [facility] Unavailable [phone] Haylie Cheung [facility] Unavailable [phone] Galdino Valdez MD Unavailable Jaiden Holcomb MD Primary Care Provider [phone] Kendall Joseph MD Unavailable Erlinda Barber MD Unavailable Reason for Visit Reason Onset Date Comments Home Care/Hospice 05/15/2020 Encounter Details Date Type Department Care Team Description 05/15/2020 Telephone [facility] Yarelis Mcconnell MD [address] [address] [address] [place] [address] [phone] Social History Tobacco Use Types Packs/Day Years [...] 05/03/2021 organizations such as temple groups, unions, fraiRezQ or athletic groups, or school groups? How [...] Telephone Encounter - Jolanta Reddy RN - 05/15/2020 12:25 PM CDT Call to Juanita and a verbal ok was given for additional visit today for INR. Jolanta Rdedy RN Message handled by Nurse Triage. Telephone Encounter - Gisele Reed - 05/15/2020 8:24 AM CDT Juanita nurse with [employer] left voicemail at 8:17am Update: Patient started with [employer] health homemaker company private pay homemaker company they will take over a lot of the daily dressing changes Medicare funded home health nursing to try and cut down nursing to twice a week on Monday and Monday This week has seen her 3 times already, requesting verbal for addition visit today Monday - regular visit Monday - training with new staff Lynsey - lab draw due Today INR due Going forward should be twice weekly Callback [phone] documented in this encounter Plan of Treatment Upcoming Encounters Date Type Specialty Care Team Description 11/15/2022 Virtual Visit Pharm D Haylie Cheung, [facility] [address] [place] [phone] (Wo rk) 11/15/2022 Virtual [place] [address] [place] [address] [address] [place] [phone] (Wo rk) 03/03/2023 Virtual Visit Neurology Erlinda Barber MD [address] [place] [address] 295 [place], [place] [address] (Wo rk) documented as of this encounter Visit Diagnoses Not on filedocumented in this encounter Additional Health Concerns Assessment Noted Time PHQ-9 Depression Total Score: 4 04/12/2019 7:03 AM CDT documented as of this encounter Care Teams Lithographic Press Feeder Relationship Specialty Start Date End Date Jaiden Holcomb PCP - General Internal Medicine 02/13/2010/03 MD Jayesh [address] [place] [address] [place] [address] Chastity Montero MD Dermatology 09/23/[address] [place] [address] 98 [place], [place] [address] Johnnie Alcocer MD Surgeon General Surgery 03/23/[address] [place], [place] [phone] Danni Marcus, CHANDLER Personal Advocate & 01/09/1901/17 Liaison (PAL) Fernando, Ea Complex 04/23/19 Svetlana Osman, Pharmacist Pharmacotherapy 04/23/19 [facility] [address] [place] [phone] Haylie Cheung, Pharmacist Pharmacist 09/11/19 [facility] [address] [facility] [address] [place], [place] [phone] Galdino Valdez MD Assigned PCP 11/10/19 05/23/20 [address] [place], [place] [phone] Opal, Assigned Sleep 05/08/20 03/27/21 Kendlal Meehan MD Provider [address] [place] [address] Erlinda Barber MD Assigned Neuroscience 05/08/20 01/26/21 420 [facility] 295 [place] [address] documented as of this encounter
--- OUTSIDE RECORDS SUMMARY | 2022-06-15 12:51 | XMS_ITS | Encounter Summary ---
:1945 Author Organization [place] Address [address] [place] [address] Care Team Providers Name Role Phone Chastity Montero MD Unavailable [phone] Johnnie Alcocer MD Unavailable Danni Marcus RN Unavailable Unavailable Mtm, Ea Complex Unavailable Unavailable Svetlana Osman [facility] Unavailable [phone] Haylie Cheung [facility] Unavailable [phone] Jaiden Holcomb MD Primary Care Provider [phone] Kendall Joseph MD Unavailable Erlinda Barber MD Unavailable Jaiden Holcomb MD Unavailable Encounter Details Date Type Department Care Team Description 05/29/2020 Anticoagulation Therapy [facility] Zhang, 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 embolism; Visit Clinic Yarelis Hwang Paroxysmal atrial fibrillati on (H); [address] [place] MD Jayesh 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 current use of anticoagulant t [facility] [address] [place] [address] 200 [facility] [address] Social History Tobacco [...] encounter Progress Notes Brie Mack RN - 05/29/2020 2:38 PM CST Images from the original note were not included. ANTICOAGULATION MANAGEMENT Patient Name: Charlette Brush Date: 05/29/2020 ASSESSMENT /SUBJECTIVE: Today's INR result of 1.7 is subtherapeutic. Goal INR of 2.0-3.0 ??? Warfarin dose taken: Warfarin taken as instructed ??? Diet: No new diet changes affecting INR ??? Medication changes/ interactions: Continues IV ampicillin until atleast 06/09/20. ??? Previous INR: Subtherapeutic ??? S/S of bleeding or thromboembolism: No ??? New injury or illness: No ??? Upcoming surgery, procedure or cardioversion: No ??? Additional findings: None PLAN: Telephone call with home care nurse regarding INR result and instructed: Warfarin Dosing Instructions: Change your warfarin dose to 5 mg Tues and 10 mg ROW (5 mg or 8.3% increase) Instructed patient to follow up no later than: 1 week Orders given to Homecare nurse/facility to recheck Education provided: None required Charlette verbalizes understanding and agrees to warfarin dosing plan. Instructed to call the Anticoagulation Clinic for any changes, questions or concerns. (#[phone]) Brie Mack RN OBJECTIVE: Recent labs: (last 7 days) 05/29/20 INR 1.7* No question data found. 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 Anticoagulation Care Providers Provider Role Specialty Phone number Galdino Valdez MD Referring Family Medicine [phone] Lucero Stevenson MD Responsible Internal Medicine [phone] D TREATMENT RN documented in this encounter Plan of Treatment Upcoming Encounters Date Type Specialty Care Team Description 11/15/2022 Virtual Visit Pharm Haylie Gonzalez, [facility] [address] [facility] [place] [address] (Lena max) 11/15/2022 Virtual Visit IM/Peds Yane Barraza MD [address] [facility] [place] [address] (Wo rk) 03/03/2023 Virtual Visit Neurology Erlinda Barber MD [address] [facility] 295 [place] [address] (Lena rk) documented as of this encounter Procedures Procedure Name Priority Date/Time Associated Diagnosis Comme nts INR Routine 05/29/2020 Results for thi s procedure are in the resu lts section. documented in this encounter Results (ABNORMAL) INR (05/29/2020) athologist Signature INR 1.7 (A) 0.90 - 1.10 EXTERNAL LAB Specimen (Source) Anatomical Location Collection Method / Collectio n Time Received Time / Laterality Volume Blood specimen 05/29/2020 (specimen) Patient Reported LAB - BLOOD ORDERABLES Performing Organization Address City/State/ZIP Code Phon e Number EXTERNAL LAB EXTERNAL LAB External Lab documented in this encounter Visit Diagnoses Diagnosis 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 embolism Paroxysmal atrial fibrillation (H) Atrial fibrillation 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 current use of anticoagulant t herapy documented in this encounter Additional Health Concerns Assessment Noted Time PHQ-9 Depression Total Score: 4 04/12/2019 7:03 AM CDT documented as of this encounter Care Teams Waste Picker Relationship Specialty Start Date End Date Jaiden Holcomb PCP - General Internal Medicine 02/13/2010/03 MD Jayesh [address] [facility] [place] [address] Chastity Montero MD Dermatology 09/23/[address] [place] [address] 98 [place], [place] [address] Johnnie Alcocer MD Surgeon General Surgery 03/23/[address] [place] [address] Danni Marcus, CHANDLER Personal Advocate & 01/09/1901/17 Liaison (PAL) Mtkinsey, Ea Complex 04/23/19 Svetlana Osman, Pharmacist Pharmacotherapy 04/23/19 [place] [address] [place] [address] Haylie Cheung, Pharmacist Pharmacist 09/11/19 [facility] [address] [place] [address] [id number] Opal, Assigned Sleep 05/08/20 03/27/21 Kendall Meehan MD Provider [address] [place] [address] Erlinda Barber MD Assigned Neuroscience 05/08/20 01/26/21 420 [facility] 295 [place] [address] Jaiden Holcomb Assigned PCP 05/24/20 MD Jayesh 909 [place] [address] documented as of this encounter
--- OUTSIDE RECORDS SUMMARY | 2022-06-15 12:52 | XMS_ITS | Encounter Summary ---
:1945 Author Organization [facility] Address [address] [place] [address] Care Team Providers Name Role Phone Chastity Montero MD Unavailable [phone] Johnnie Alcocer MD Unavailable Danni Marcus RN Unavailable Unavailable Mtm, Ea Complex Unavailable Unavailable Svetlana Osman [facility] Unavailable [phone] Haylie Cheung [facility] Unavailable [phone] Galdino Valdez MD Unavailable Jaiden Holcomb MD Primary Care Provider Kendall Joseph MD Unavailable Erlinda Barber MD Unavailable Jaiden Holcomb MD Unavailable [phone] Reason for Visit Reason Comments Follow Up pt states MRI scheduled for next week Encounter Details Date Type Department Care Team Description 04/28/2020 Office Visit - [facility] Dora, [facility] Mahamed Miranda MD osteomyelitis, On license of [facility] INFECTIOUS unspeci [facility] [address] DISEASE [facility] (H) [place], [place] [address] [facility] [address] [facility] [phone] [place] [address] Social History Tobacco Use Types [...] Sign Reading Time Taken Comments Blood Pressure 130/92 04/28/2020 10:35 AM CDT Pulse 80 04/28/2020 10:35 AM CDT Temperature 36.4 ??C (97.5 ??F) 04/28/2020 10:35 AM CDT Respiratory Rate - - Oxygen Saturation - - Inhaled Oxygen Concentration - - Weight 158.3 kg (349 lb) 04/28/2020 10:35 AM CDT Height - - Body Mass Index 54.66 04/08/2020 2:00 PM CDT documented in this encounter Progress Notes Ruth John MD - 04/28/2020 11:00 AM CDT Images from the original note were not included. Progress Notes by Ruth John MD at 04/28/2020 11:00 AM Author: Ruth John MD Service: -- Author Type: Physician Filed: 04/28/2020 11:19 AM Encounter Date: 04/28/2020 Status: Signed Assistant Women'S Tennis Coach: Ruth John MD (Physician) [facility] follow-up note. Name: Charlette Brush : 1945 PCP: Doris Lai MD DOS: 04/28/20 CC: Chronic nonhealing left IT wound HPI/Interval History: Charlette Brush is a 75 y.o. female with the history of morbid obesity with a BMI of 54, chronic wound. I treated her about a year ago with 4 weeks of Unasyn for wound infection. The wound has never healed. She was getting wound VAC up until recently when this was removed. Currently getting regular wound care. Was seen in vascular clinic on 04/21/2020. Cultures obtained with growth of 2 strains of Proteus mirabilis, ampicillin susceptible enterococcus, and Peptostreptococcus. Currently not on any antibiotic. Going for MRI with contrast on 05/04/2020. Reports distinctly drainage. No fever, chills, night sweats. PMH: Past Medical History: Diagnosis Date ? [...] Patient has appointment with Retina Specialist at [facility] on 01/11. 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 ? Morbid obesity (H) ? [...] Referral placed for Dr. Kajal Huggins at [facility] in [place] per patient request. She has contact i [...] ? CHOLECYSTECTOMY ? NERVE REPAIR left ? sciatic nerve transection ? TONSILLECTOMY ? [...] Take 50 mg by mouth daily. ? qpsjzhwfeepu-synkayfb-jejokw (CEROVITE SENIOR) tablet Take 1 tablet by [...] Dose Route Frequency Provider Last Rate Last Dose ? lidocaine 2 % jelly (XYLOCAINE) Topical PRN Patience Toussaint NP Review of System: 12 points review of system is negative except for findings in the HPI. Exam VS: Vitals: 04/28/20 1035 BP: (!) 130/92 Pulse: 80 Temp: 97.5 ??F (36.4 ??C) Body mass index is 54.66 kg/m??. Gen: Pleasant in no acute distress. HEENT: NCAT. EOMI. Neck: No LAD. Lungs: Clear to auscultation bilaterally with no crackles or wheezes. Card: RRR. No RMG. Peripheral pulses present and symmetrical. No edema. Abd: Soft NT ND. No hepatomegaly or splenomegaly. Ext: No edema Lymph: No cervical or supraclavicular adenopathy. Skin: No rash Neuro: Alert and oriented to place time and person. Cranial nerves grossly intact. Adopted from note from 04/21/2020 Media Information Labs: Culture/Gram Stain: Tissue Order: [id number] Status: Final result ?Visible to patient: Yes (Ayo) Next appt: 05/04/2020 at 05:00 PM in Radiology ([facility] Rm 1) Dx: Pressure injury of left ischium, stag... Specimen Information: Tissue ?? Culture 2+ Proteus mirabilisAbnormal 2+ Streptococcus viridans groupAbnormal 1+ Proteus mirabilisAbnormal 1+ DiphtheroidsAbnormal 1+ Enterococcus faecalisAbnormal ?? Gram Stain Result No polymorphonuclear leukocytes seen No organisms seen Resulting Agency: [facility] Susceptibility Proteus mirabilis (1) Proteus mirabilis (3) LOW LOW Amikacin <=8 Sensitive <=8 Sensitive Amoxicillin + Clavulanate <=4/2 Sensitive <=4/2 Sensitive Ampicillin >16 Resistant >16 Resistant Cefazolin 8 Sensitive 16 Intermediate Cefepime <=1 Sensitive <=1 Sensitive Ceftriaxone <=1 Sensitive <=1 Sensitive Ciprofloxacin >2 Resistant >2 Resistant Gentamicin >8 Resistant >8 Resistant Levofloxacin >4 Resistant >4 Resistant Piperacillin + Tazobactam <=2/4 Sensitive <=2/4 Sensitive Tetracycline >8 Resistant >8 Resistant Tobramycin >8 Resistant >8 Resistant Trimethoprim + Sulfamethoxazole >2/38 Resistant >2/38 Resistant Susceptibility Enterococcus faecalis LOW Ampicillin 2 Sensitive Specimen Collected: 04/21/20 18:15 Results Culture, Anaerobic (Order [id number]) Contains abnormal data Culture, Anaerobic Order: [id number] Status: Final result ?Visible to patient: Yes (MyChart) Next appt: 05/04/2020 at 05:00 PM in Radiology ([facility] MRI Rm 1) Dx: Pressure injury of left ischium, stag... Specimen Information: Tissue ?? Culture 2+ Peptostreptococcus speciesAbnormal Resulting Agency: [facility] Specimen Collected: 04/21/20 18:15 Last Resulted: 04/24/20 12:06 Imaging: None new. Assessment: Charlette Brush is a 75 y.o. female with morbid obesity with BMI of 54. Chronic nonhealing wounds. Status post 4 weeks of IV Unasyn in June 2019. Recent wound cultures with 2 strains of Proteus mirabilis, Enterococcus faecalis, ampicillin susceptible, Peptostreptococcus. Scheduled to have an MRI on 05/04/2020. History of multiple antibiotic allergies but tolerated Unasyn in the past even though she had some pruritus and perhaps some rash. At the time she told my colleague her symptoms were not significant enough to warrant changing therapy. Recommendations: Wait for the MRI results to come back. If has osteomyelitis, then will need 4 to 6 weeks of IV Unasyn. Alternative would be IV ertapenem plus IV vancomycin if has allergies. CBC with differential, BMP, CRP today. Weight loss is the only solution in this situation. I do not see antibiotic as a way to solve this issue of chronic wound If MRI is positive then a picc will be placed Follow up afterward. Rafa John MD [facility] Office . Am[employer] paging documented in this encounter Plan of Treatment Upcoming Encounters Date Type Specialty Care Team Description 11/15/2022 Virtual Visit Pharm Haylie Gonzalez, [facility] [address] [facility] [place] [phone] (Wo rk) 11/15/2022 Virtual Visit IM/Peds Yane Barraza MD [address] [place] [address] [place] [phone] (Wo rk) 03/03/2023 Virtual Visit Neurology Erlinda Barber MD [address] [place] [address] [address] [place], [place] [address] (Wo rk) documented as of this encounter Visit Diagnoses Diagnosis Other chronic osteomyelitis, unspecified site (H) documented in this encounter Additional Health Concerns Assessment Noted Time PHQ-9 Depression Total Score: 4 04/12/2019 7:03 AM CDT documented as of this encounter Care Teams Speech And Language Clinician Relationship Specialty Start Date End Date Jaiden Holcomb PCP - General Internal Medicine 02/13/2010/03 MD Jayesh [address] [place] [address] [place] [phone] Chastity Montero MD Dermatology 09/23/[address] [place] [address] [address] [place], [place] [address] Johnnie Alcocer MD Surgeon General Surgery 03/23/[address] [place], [place] [phone] Danni Marcus, RN Personal Advocate & 01/09/1901/17 Liaison (PAL) Fernando, Ea Complex 04/23/19 Svetlana Osman, Pharmacist Pharmacotherapy 04/23/19 [place] [address] [address] [place] [phone] Haylie Cheung, Pharmacist Pharmacist 09/11/[address] [place] [address] Galdino Valdez MD Assigned PCP 11/10/19 05/23/20 [address] [place], [place] [phone] Opal, Assigned Sleep 05/08/20 03/27/21 Kendall Meehan MD Provider [address] [place] [address] Erlinda Barber MD Assigned Neuroscience 05/08/20 01/26/21 [address] [facility] [address] Provider [place], [place] [phone] Jaiden Holcomb Assigned PCP 05/24/20 MD Jayesh [address] [place] [address] documented as of this encounter
--- OUTSIDE RECORDS SUMMARY | 2022-06-15 12:52 | XMS_ITS | Encounter Summary ---
:1945 Author Organization [facility] Address [address] [place] [address] Care Team Providers Name Role Phone Chastity Montero MD Unavailable [phone] Johnnie Alcocer MD Unavailable Danni Marcus RN Unavailable Unavailable Mtm, Ea Complex Unavailable Unavailable Svetlana Osman [facility] Unavailable [phone] Haylie Cheung [facility] Unavailable [phone] Galdino Valdez MD Unavailable Jaiden Holcomb MD Primary Care Provider Reason for Visit Reason Comments Medication Therapy Management Encounter Details Date Type Department Care Team Description 04/30/2020 Office Visit [facility] Haylie Cheung Lymph edema of both lower extremities (Primary Dx); Clinic Yarelis Rojas [facility] CEFERINO on CPAP; [address] Intermittent pain; [address] [place] [address] Essential hypertension, benign; [address] 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 documented as of this encounter Progress Notes Haylie Cheung, [facility] - 04/30/2020 1:30 PM CDT MTM ENCOUNTER SUBJECTIVE/OBJECTIVE: Charlette Brush is a 75 year old female contacted via secure video for a co-visit with care team (whois seening patient f2f). Chief Complaint: EMG review. Wondering if hydrochlorothiazide needed. Allergies/ADRs: Reviewed in chart Tobacco: She reports that she has never smoked. She has never used smokeless tobacco. Alcohol: not currently using Caffeine: no caffeine Activity: Walking around her home and 20-30 minutes per day, uses 4 wheel walker. PMH: Reviewed in EHR. 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 [facility] in [place]. Medication Adherence/Access: Patient takes medications directly from bottles. Patient takes medications 2 time(s) per day. Per patient, misses medication 0 times per week. Medication barriers: none. The patient fills medications at [facility]: NO, fills medications at [facility]. ?? CEFERINO: She is using the CPAP at night. Has too much going to set up the follow-up. Specialist: Dr. Joseph, Sleep Medicine. Last visit on 09/23/2019, the following was recommended replacement orders given for CPAP. ?? Intermittent pain: EMG completed, wondering about results today. Current medications include: acetaminophen 650mg Q4 as needed - Rarely using. ?? Hypertension/Lymphedema: Current medications include losartan 50mg every day AM, atenolol 25mg twicedaily, hydrochlorothiazide 12.5 mg daily. Urinating all the time every hour and half hour. Has urge frequently. She is not interested in a medication for overactive bladder. But would like to stop hydrochlorothiazide if it makes no difference. Saw lymphedema specialist in the past. Has lymphedema pump/tube that she wears. Runs from toes to hip. Patient reports the following medication side effects: none BP Readings from Last 3 Encounters: 04/30/20 124/74 09/23/19 (!) 154/92 09/11/19 138/86 Recurrent PE: Current medication is wafarin in the evening as directed by INR clinic. Per Dr. Felipe recommendation lifelong therapy. Denies any bleeding concerns. Lab Results Component Value Date INR 2.3 04/17/2020 INR 2.2 03/26/2020 INR 2.40 03/09/2020 Anemia: Hx of iron deficiency induced anemia. Current medication is ferrous sulfate 325mg every other day with breakfast (along with vitamin C). Denies any side effects. Hemoglobin Date Value Ref Range Status 03/09/2020 14.7 11.7 - 15.7 g/dL Final Ferritin Date Value Ref Range Status 03/09/2020 100 8 - 252 ng/mL Final Iron Date Value Ref Range Status 04/23/2019 59 35 - 180 ug/dL Final Iron Binding Cap Date Value Ref Range Status 04/23/2019 318 240 - 430 ug/dL Final ?? Seizure: Current medication is levetiracetam 500mg twice a day. S/E: falls asleep easily if not doing anything. Specialist: Dr. Barber, Neurology. Last visit on 01/24/20, the following was recommended no change. EEGon showed occasional left temporal epileptiform activities during sleep and occasional left temporal slowing during sleep and wakefulness. ??No seizures. Ref. Range 04/24/2019 14:24 Keppra (Levetiracetam) Level Latest Ref Range: 12 - 46 ug/mL 12 Allergies: Current medications include cetirizine 10mg twice daily. Denies any allergy symptoms and reports this is for her skin. She reports blood typer started this for her inflamed skin. She also states she has had a lot of skin testing previously and is allergic to many things (Dr. Edward Lopez [facility]). She does not like nasal sprays and do not want to start those. Had tried loratadine before possibly and was not effective. Not interested in changing therapy. ?? Eczema/Wound: Current medication is hydrocortisone 2.5% ointment PRN, triamcinoloine ointment as needed, nystatin cream or powder for wound healing/infection which she feels is highly effective. Wound vac removed. Specialist: Patience Toussaint, Vascular Surgery. 04/21 --> Wound treatment will include irrigation and dressings to promote autolytic debridement and will be: Hibiclens wash then NS rinse then prontosan or Vashe cleanser then alginate with silver then foam with silicon border. Change every other day. [facility]. Dr. John/ID specialist on 04/28 --> If has osteomyelitis, then will need 4 to 6 weeks of IV Unasyn. Alternative would be IV ertapenem plus IV vancomycin if has allergies. CBC with differential, BMP, CRP today. Weight loss for chronic wound. ?? Supplements: Currently taking vitamin D 5000 units every day, MVI 1 tablet every day, Preservision/Luteine 1 cap every day for macular degeneration, vitamin C 1000 mg daily, Glutamine 500 mg twice daily x7 days - today last day, Fish oil 2g daily (with celiac gene), Slightly low: Zinc 50 mg daily x14 days, then every other day for 2 months, Probiotic (TherBiotic) 25 billion CFU once daily for 4-6 weeks, then 1-2 times once a week for a few months. Will check Copper level next time. Lastly recommended to take [employer] Ultra InflammX powder/shake (she use to drinking Premier Protein 30 g protein) Her dietary Calcium intake: At least 1 yogurt daily, 2 glasses of milk and bag of salad every day. Normal DEXA scan 2012. Obesity: Current medication include: none. Met with weight management on 03/27/2020. Dr. Lala --> protein goal 30-35g/meal every 4-5 hours avoid snacking after supper, 80 oz water daily. Future consider naltrexone. Patient's personalized goal: Patient would like to work on diet and possibly medication for weight loss. Current weight today: 352 lbs 12.8 oz Weight trend: Wt Readings from Last 4 Encounters: 04/30/20 (!) 351 lb 11.2 oz (159.5 kg) 09/23/19 (!) 352 lb (159.7 kg) 09/11/19 (!) 352 lb 12.8 oz (160 kg) 07/22/19 (!) 354 lb 6.4 oz (160.8 kg) Vaccines: Most Recent Immunizations Administered Date(s) Administered ??? FLU 6-35 months 04/19/2010 ??? Influenza (High Dose) 3 valent vaccine 04/23/2019 ??? Influenza (IIV3) PF 04/26/2012 ? ? Pneumo Conj 13-V (2010&after) 12/30/2014 ??? Pneumococcal 23 valent 12/06/2011 ??? TD (ADULT, 7+) 08/27/2004 ??? TDAP Vaccine (Adacel) 12/30/2014 ??? Td (Adult), Adsorbed 08/27/2004 Pended Date(s) Pended ??? Influenza, Quad, High Dose, Pf, 65yr + 04/30/2020 Today's Vitals: There were no vitals taken for this visit. Last Comprehensive Metabolic Panel: Sodium Date Value Ref Range Status 03/09/2020 141 133 - 144 mmol/L Final Potassium Date Value Ref Range Status 03/09/2020 4.5 3.4 - 5.3 mmol/L Final Chloride Date Value Ref Range Status 03/09/2020 109 94 - 109 mmol/L Final Carbon Dioxide Date Value Ref Range Status 03/09/2020 29 20 - 32 mmol/L Final Anion Gap Date Value Ref Range Status 03/09/2020 3 3 - 14 mmol/L Final Glucose Date Value Ref Range Status 03/09/2020 90 70 - 99 mg/dL Final Urea Nitrogen Date Value Ref Range Status 03/09/2020 22 7 - 30 mg/dL Final Creatinine Date Value Ref Range Status 03/09/2020 0.52 0.52 - 1.04 mg/dL Final GFR Estimate Date Value Ref Range Status 03/09/2020 >90 >60 mL/min/[1.73_m2] Final Comment: Non GFR Calc Starting 07/03/2018, serum creatinine based estimated GFR (eGFR) will be calculated using the Chronic Kidney Disease Epidemiology Collaboration (CKD-EPI) equation. Calcium Date Value Ref Range Status 03/09/2020 8.8 8.5 - 10.1 mg/dL Final Bilirubin Total Date Value Ref Range Status 03/15/2019 0.5 0.2 - 1.3 mg/dL Final Alkaline Phosphatase Date Value Ref Range Status 03/15/2019 109 40 - 150 U/L Final ALT Date Value Ref Range Status 06/04/2019 15 0 - 45 U/L Final AST Date Value Ref Range Status 06/04/2019 21 0 - 40 U/L Final ASSESSMENT: Medication Adherence: No issues identified CEFERINO: unchanged. ?? Pain: PCP to review EMG results and suggest PHYSICAL THERAPY and OT. ?? Hypertension/Lymphedema: BP today is at goal < 140/90 and patient has strong preference to trial off therapy. We may consider off, however suggest blood pressure recheck and if elevate consider titration in losartan. ?? Recurrent PE: INR at goal 2-3. ?? Anemia: stable Seizure: stable. ?? Allergic rhinitis: unchanged. ?? Eczema/Wound: Ct following with ID specialist recommendation of diet and supplements. ?? Supplements: see above. ?? Weight Loss: ct working with weight loss program. Medication that may be consider include Belviq, naltrexone, if pre-DM then could consider GLP-1RA for coverage. Vaccines: candidate for high dose flu and Shingrix. PLAN: Protein intake/Supplement: 1. Please continue to the recommendation of the additional supplements and the [employer] UltraInflamX powder. Lymphedema: 1. You may stop hydrochlorothiazide today. We will want to check your blood pressure when are you innext week for your eye exam. EM. Results reviewed today. We we consider continue working on movement with PHYSICAL THERAPY or Occupation therapy. Vaccines: 1. High dose flu shot today 2. Consider Shingrix in the future. Please go to the pharmacy to get the Shingrix vaccine, which helps prevent the risk of getting shingles and the nerve pain if you have shingles. After the first shot, you will need the second shot to complete the series 2-6 months later. I spent 75 minutes with this patient today. All changes were made via verbal approval with Jaiden Holcomb. A copy of the visit note was provided to the patient's primary care provider. Will follow up in 6-12 months with MTM. The patient was given a summary of these recommendations. See Provider note/AVS from today. Haylie Cheung PharmD Medication Therapy Management Pharmacist Pager#: [phone] Patient consented to a telehealth visit: yes Telemedicine Visit Details Type of service: Video visit Start Time: 1:15 PM End Time: 2:34PM Originating Location (pt. Location): Home Distant Location (provider location): [facility] Mode of Communication: Video Conference via Other: emere Teams with PAL in clinic documented in this encounter Plan of Treatment Upcoming Encounters Date Type Specialty Care Team Description 11/15/2022 Virtual Visit Pharm Haylie Gonzalez [facility] [address] [employer] [place] [phone] (Lena max) 11/15/2022 Virtual Visit [place] [address] [place] [address] [place] [phone] (Lena max) 03/03/2023 Virtual Visit Neurology Erlinda Barber MD [address] [facility] [address] [place] [address] (Lena max) documented as of this encounter Visit Diagnoses Diagnosis Lymphedema of both lower extremities - P rimary CEFERINO on CPAP Obstructive sleep apnea (adult) (pediatr ic) Intermittent pain Generalized pain Essential hypertension, benign 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 embolism Iron deficiency anemia, unspecified iron deficiency anemia type Seizure (H) Other convulsions Allergic reaction, sequela Open wound Open wound(s) (multiple) of unspecified site(s), without mention of complication Eczema, unspecified type Takes dietary supplements Weight loss Loss of weight Vaccine counseling documented in this encounter Additional Health Concerns Assessment Noted Time PHQ-9 Depression Total Score: 4 04/12/2019 7:03 AM CDT documented as of this encounter Care Teams Stone Breaker Relationship Specialty Start Date End Date Jaiden Holcomb PCP - General Internal Medicine 02/13/2010/03 MD Jayesh [address] [place], [place] [phone] Chastity Montero MD Dermatology 09/23/14 MD Martha [address] [facility] [address] [place], [place] [phone] Johnnie Alcocer MD Surgeon General Surgery 03/23/17 [address] [facility] [address] [place], [place] [phone] Danni Marcus, [facility] Personal Advocate & 01/09/1901/17 Liaison (PAL) Mtkinsey, Ea Complex 04/23/19 Svetlana Osman Pharmacist Pharmacotherapy 04/23/19 Era [facility] [address] [place] [place], [place] [phone] Haylie Cheung, Pharmacist Pharmacist 09/11/19 [facility] [address] [place] [phone] Galdino Valdez MD Assigned PCP 11/10/19 05/23/20 [address] [place], [place] [phone] documented as of this encounter
--- OUTSIDE RECORDS SUMMARY | 2022-06-15 12:52 | XMS_ITS | Encounter Summary ---
:1945 Author Organization [facility] [place] Address [address] [place] [address] Care Team Providers Name Role Phone Chastity Montero MD Unavailable [phone] Johnnie Alcocer MD Unavailable Danni Marcus RN Unavailable Unavailable Mtm, Ea Complex Unavailable Unavailable Svetlana Osman [facility] Unavailable [phone] Haylie Cheung [facility] Unavailable [phone] Galdino Valdez MD Unavailable Jaiden Holcomb MD Primary Care Provider [phone] Reason for Visit Reason Onset Date Comments Home Care/Hospice 05/01/2020 Orders for PT and OT Encounter Details Date Type Department Care Team Description 05/01/2020 [facility] Jaiden Holcomb [facility] Yarelis Mcconnell MD (Orders for PT and OT) [address] [address] [place] [address] [phone] Social History Tobacco Use Types Packs/Day Years [...] Telephone Encounter - Jolanta Reddy RN - 05/04/2020 11:56 AM CDT Call to Juanita-she states that they did come in for first visit and not sure why they have not returned or continued visits. Gave verbal orders for physical and occupational therapy. Juanita will get this started. Jolanta Reddy RN Message handled by Nurse Triage. Telephone Encounter - Gisele Reed - 05/04/2020 10:58 AM CDT Juanita Nurse with [facility], left voicemail for Genevieve at 10:55am Call regarding PT and OT Patient is at the end of 60 day episode Re-cert patient, and discuss plan of care Callback, Thank you Luis E Carreon Online Facilitator - Complex Care Team Telephone Encounter - Danni Marcus RN - 05/01/2020 2:36 PM CDT Patient had office appointment yesterday, and states that she has not received Physical therapy or OT thru home care. [facility] appliances mechanic, Juanita, to check why this order wasn't processed. Needs Physical therapy and OT to assess leg brace. Ashli Marcus RN documented in this encounter Plan of Treatment Upcoming Encounters Date Type Specialty Care Team Description 11/15/2022 Virtual Visit Pharm D Haylie Cheung, [facility] [address] [facility] [place] [id number] (Wo rk) 11/15/2022 Virtual Visit IM/Peds Yane Barraza MD [address] [place] [address] [place] [id number] (Wo rk) 03/03/2023 Virtual Visit Neurology Erlinda Barber MD [address] [place] [address] [address] [place], [place] [address] (Wo rk) documented as of this encounter Visit Diagnoses Not on filedocumented in this encounter Additional Health Concerns Assessment Noted Time PHQ-9 Depression Total Score: 4 04/12/2019 7:03 AM CDT documented as of this encounter Care Teams Preassembler And Inspector Relationship Specialty Start Date End Date Jaiden Holcomb PCP - General Internal Medicine 02/13/2010/03 MD Jayesh [address] [place] [address] [place] [address] Chastity Montero MD Dermatology 09/23/14 MD Martha [address] [facility] 98 [place], [place] [address] Johnnie Alcocer MD Surgeon General Surgery 03/23/17 [address] [facility] [address] [place], [place] [id number] Danni Marcus, RN Personal Advocate & 01/09/1901/17 Liaison (PAL) Fernando Ea Complex 04/23/19 Svetlana Osman Pharmacist Pharmacotherapy 04/23/19 Era, [facility] [address] [place], [place] [id number] Haylie Cheung, Pharmacist Pharmacist 09/11/19 [facility] [address] [place] [address] Galdino Valdez MD Assigned PCP 11/10/19 05/23/20 [address] [place], [place] [phone] documented as of this encounter
--- OUTSIDE RECORDS SUMMARY | 2022-06-15 12:52 | XMS_ITS | Encounter Summary ---
:1945 Author Organization [facility] Address [address] [place] [address] Care Team Providers Name Role Phone Chastity Montero MD Unavailable [phone] Johnnie Alcocer MD Unavailable Danni Marcus RN Unavailable Unavailable MtKyle euceda Complex Unavailable Unavailable Svetlana Osman [facility] Unavailable [phone] Haylie Cheung [facility] Unavailable [phone] Galdino Valdez MD Unavailable Jaiden Holcomb MD Primary Care Provider [phone] Reason for Visit Reason Comments Hypertension Encounter Details Date Type Department Care Team Description 05/06/2020 Allied Health/Nurse [facility] 5a, Kyle Sidhu Pal Hypertension Visit Yarelis [address] [facility] [address] [place] [address] Social History [...] More than 4 times per year 05/03/2021 congregation services? Do you belong to any clubs [...] been in contact with No / Unsure 05/06/2020 3:00 PM CDT someone who was confirmed or suspected to have Coronavirus / COVID-19? documented as of this encounter Last Filed Vital Signs Vital Sign Reading Time Taken Comments Blood Pressure 112/78 05/06/2020 2:47 PM CDT Pulse 76 05/06/2020 2:47 PM CDT Temperature - - Respiratory Rate - - Oxygen Saturation - - Inhaled Oxygen Concentration - - Weight - - Height - - Body Mass Index - - documented in this encounter Progress Notes Danni Marcus, CHANDLER - 05/06/2020 2:30 PM CDT Charlette Brush is a 75 year old year old patient who comes in today for a Blood Pressure check because of medication change. Stopped hydrochlorothiazide at office appointment last week. Vital Signs as repeated by Ashli Marcus RN Patient is taking medication as prescribed Patient is tolerating medications well. Patient is not monitoring Blood Pressure at home. Average readings if yes are NA Current complaints: none Disposition: patient instructed to Continue current medication regimen. Update forwarded to provider for review. Patient is having PICC line placed tomorrow for 4-6 weeks of IV therapy. Is starting with [facility] home care in [place] for home health aide services. Ashli Marcus RN Jaiden Holcomb MD - 05/06/2020 2:30 PM CDT Thanks, reviewed BP which is good today. Thanks for awareness of IV placement tomorrow and choice ofHC. Jaiden Holcomb MD Internal Medicine [facility] [place] documented in this encounter Plan of Treatment Upcoming Encounters Date Type Specialty Care Team Description 11/15/2022 Virtual Visit Pharm Haylie Gonzalez, [facility] [address] [place], [place] [phone] (Wo rk) 11/15/2022 Virtual Visit IM/Peds Yane Barraza MD [address] [place] [address] [place] [phone] (Wo rk) 03/03/2023 Virtual Visit Neurology Erlinda Barber MD [address] [place] [address] [address] [place], [place] [address] (Wo rk) documented as of this encounter Visit Diagnoses Diagnosis Essential hypertension, benign - Primary documented in this encounter Additional Health Concerns Assessment Noted Time PHQ-9 Depression Total Score: 4 04/12/2019 7:03 AM CDT documented as of this encounter Care Teams Ladle Repairman Relationship Specialty Start Date End Date Jaiden Holcomb PCP - General Internal Medicine 02/13/2010/03 MD Jayesh [address] [place] [address] [place] [address] Chastity Montero MD Dermatology 09/23/14 MD Martha [address] [place] [address] [address] [place], [place] [address] Johnnie Alcocer MD Surgeon General Surgery 03/23/[address] [place], [place] [phone] Danni Marcus, CHANDLER Personal Advocate & 01/09/1901/17 Liaison (PAL) Fernando, Ea Complex 04/23/19 Svetlana Osman Pharmacist Pharmacotherapy 04/23/19 Era, [facility] [address] [place] [id number] Haylie Cheung, Pharmacist Pharmacist 09/11/19 [facility] [address] [facility] [address] [place], [place] [phone] Galdino Valdez MD Assigned PCP 11/10/19 05/23/20 [address] [place], [place] [phone] documented as of this encounter
--- OUTSIDE RECORDS SUMMARY | 2022-06-15 12:52 | XMS_ITS | Encounter Summary ---
:1945 Author Organization [place] Address [address] [place] [address] Care Team Providers Name Role Phone Chastity Montero MD Unavailable [phone] Johnnie Alcocer MD Unavailable Danni Marcus RN Unavailable Unavailable Kyle King Complex Unavailable Unavailable Svetlana Osman [facility] Unavailable [phone] Haylie Cheung [facility] Unavailable [phone] Galdino Valdez MD Unavailable Jaiden Holcomb MD Primary Care Provider [phone] Reason for Visit Reason Comments Imm/Inj Flu Shot Wounds Ischial wound-pressure ulcer Seizures Lymphedema Sleep Apnea Encounter Details Date Type Department Care Team Description 04/30/2020 Office Visit [facility] Luis Holcomb MD [address] [place] [address] Pressure ulcer of ischium, left, stage I V (H) (Primary Dx); Clinic Yarelis martínez Ea Rn Pal Morbid obesity -- BMI 55.6; [address] [place] Lymphedema of both lower extremities; [address] Seizure (H); [address] CEFERINO on CPAP; [place] [phone] Essential hypertension, josy gn; [phone] Injury of left sciatic nerve, subsequent encounter; Need for prophy lactic vaccination and inoculation against influenza Social History Tobacco Use Types Packs/Day Years [...] Sign Reading Time Taken Comments Blood Pressure 124/74 04/30/2020 1:05 PM CDT Pulse 78 04/30/2020 1:05 PM CDT Temperature 36.4 ??C (97.5 ??F) 04/30/2020 1:05 PM CDT Respiratory Rate 16 04/30/2020 1:05 PM CDT Oxygen Saturation 95% 04/30/2020 1:05 PM CDT Inhaled Oxygen Concentration - - Weight 159.5 kg (351 lb 11.2 oz) 04/30/2020 1:05 PM CDT Height 170.2 cm (5' 7) 04/30/2020 1:05 PM CDT Body Mass Index 55.08 04/30/2020 1:05 PM CDT documented in this encounter Patient Instructions Patient InstructionsHaylie Cheung [facility] - 04/30/2020 1:00 PM CDT Recommendations from today's Care Team visit: Thank you for participating in our care team visit today! Protein intake/Supplement: 1. Please continue to the [...] shot today 2. 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 Please go to the pharmacy to get the Shingrix vaccine, which helps prevent the risk of getting shingles and the nerve pain if you have shingles. After the first shot, you will need the second shot to complete the series 2-6 months later. Next care team visit: It was a pleasure seeing you today! Please feel free to contact us with any questions or concerns you have. You may reach your care team by calling . If you leave a message, someone from your care team will return your call. My Care Team Members Dr. Holcomb Nurse KODY Cheung, PharmD Medication Therapy Management Pharmacist You may receive a survey about the services you received. I would appreciate your feedback to us serve you better in the future. Please fill it out and return it when you can. Your comments will be anonymous. documented in this encounter Progress Notes Jaiden Holcomb MD - 04/30/2020 1:00 PM CDT Assessment/Plan Problem List Items Addressed This Visit Nervous and Auditory Injury of sciatic nerve EMG done 03/09/20-Interpretation: This is an abnormal but limited study. 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 Because of anticoagulation therapy and body habitus proximal lower limb muscles were not evaluated with needle EMG. As such, a more proximal injuryto the lumbosacral plexus rather than the sciatic nerve can not be excluded. There is no evidence ofmotor unit continuity to distal muscles innervated by the sciatic nerve. Physical therapy and OT thru home care. OT to assess need for new brace. Continue wound care of left ischial region. Able to ambulate with left ankle brace, has left foot drop. Seizure (H) No seizure activity since beginning the Keppra in Mar 2019. Respiratory CEFERINO on CPAP Patient feels like she is sleeping fairly well and she uses her CPAP at night. Digestive Morbid obesity -- BMI 55.6 Dr. Braxton Rivera (04/05)-Aiming for 100 grams of protein daily is a good start, 30-35 grams per meal, every 4-5 hours and avoiding any snacks after supper. Hydrating well with 80 oz of water daily to prevent dizziness and adequate hydration as a minimum. You declined weight loss medication today but we discussed either naltrexone or Plenity in the future if needed/available and affordable. I wouldn't phentermine given some occasional excess heart beats today and topamax may have some sedation effects that could compromise self care. Saxenda is not covered by medicare and is too expensive as a result. Bupropion products and Contrave (bupropion/naltrexone combo med) have increased seizure risks (as does phentermine) so I'd avoid these in your case. Had a video visit with Dietitian. Next follow-up with Nicole is 05/20. Circulatory Essential hypertension, benign BP Readings from Last 3 Encounters: 04/30/20 124/74 09/23/19 (!) 154/92 09/11/19 138/86 Stop hydrochlorothiazide. Recheck blood pressure in one week. Continue losartan 50mg daily. Musculoskeletal and Integumentary Lymphedema of both lower extremities Use of daily wraps and Flexitouch pumps. Started Hydrochlorothiazide in January. Pressure ulcer of ischium, left, stage IV (H) - Primary Office appointment with infectious disease yesterday-MRI scheduled 05/04 If has osteomyelitis, then will need 4 [...] positive then a picc will be placed Other Need for prophylactic vaccination and inoculation against influenza High dose Flu vaccine given today. Relevant Orders FLUZONE HIGH DOSE 65+ [83414] (Completed) ADMIN INFLUENZA (For MEDICARE Patients ONLY) [G0008] (Completed) No results found for any visits on 04/30/20. Health Maintenance Due Topic Date Due ??? ZOSTER IMMUNIZATION (1 of 2) 01/05/1996 ??? ANNUAL REVIEW OF HM ORDERS 12/27/2019 ??? MEDICARE ANNUAL WELLNESS VISIT 01/10/2020 ??? MICROALBUMIN 02/08/2020 Time in: 1:20 Time out: 3:15 Subjective Patient states that last week at the wound clinic, they removed the wound vac. Now she just has a dressing over the wound. Dressing is changed every two days, but the dressing won't stay on, so today she has no dressing on the area. Does mentions having some yellow discharge withdressings. No longer with a wound vac. Has MRI on 05/04 to check for Osteomyelitis. Infectious Disease provider said they would call patient on Monday with results. Dr. Huggins from Vascular surgery had mentioned possible treatment in the hyperbaric chamber Reports that her home care agency will no longer be seeing patients that are private pay and [place] is private pay for her home health aides. She thinks she has found another home care agency called [facility] in [place] that offers home health aide services. Patient gets nursing services thru [facility]. Patient states that she never received Physical therapy thru home care. Would like to get her Flu vaccine. Lasix was discontinued in January and patient started hydrochlorothiazide in place of this. Some days she urinates more than others. Judges degree of edema by how loose the lymphedema wraps feel. Patient did meet with the Bariatric team at [facility]. She was told that she has the Celiac gene so she has been trying to decrease the amount of gluten inher diet. Has been trying to keep up with proteins of 100mg a day. Now on a regimen of a GI cleanse and will be on an amino acid supplement after. No seizure activity since beginning the Keppra. Would like the results of the EMG-office appointment on 03/09/20 Patient will bring a list of all of the supplements that Dr. Rivera is recommending. Has had several labs done in the past month thru [facility]. Review of Systems Constitutional: Negative for chills and fever. Cardiovascular: Positive for peripheral edema. Negative for chest pain. Gastrointestinal: Negative for abdominal distention, constipation, diarrhea and hematochezia. Genitourinary: Negative for dysuria and hematuria. Skin: Positive for wound. Negative for rash. Neurological: Positive for weakness and numbness. History Past Medical History: Diagnosis Date ??? [...] Past Surgical History: Procedure Laterality Date ??? CHOLECYSTECTOMY, OPEN 1970 ??? COLONOSCOPY N/A 01/13/2015 Procedure: COLONOSCOPY; Surgeon: Jose Juan Castaneda MD; Location: OR ??? PHACOEMULSIFICATION CLEAR CORNEA WITH STANDARD INTRAOCULAR LENS IMPLANT Left 01/22/2019 Procedure: LEFT EYE CATARACT EXTRACTION WITH INTRAOCULAR LENS IMPLANTATION; Surgeon: Bernabe Crespo MD; Location: [facility] ??? PHACOEMULSIFICATION CLEAR CORNEA WITH STANDARD INTRAOCULAR LENS IMPLANT Right 02/20/2019 Procedure: RIGHT CATARACT EXTRACTION WITH INTRAOCULAR LENS IMPLANTATION; Surgeon: Bernabe Crespo MD; Location: [facility] ? ? TONSILLECTOMY & ADENOIDECTOMY Family History Problem Relation Age of Onset ??? Hypertension Mother ??? Thyroid Disease Mother ??? Prostate Cancer Father ??? Skin Cancer Father skin cancer unknown ??? Cancer Father ??? C.A.D. Paternal Grandmother ??? Hypertension Sister ??? Cerebrovascular Disease Maternal Grandmother age 62 ??? Breast Cancer Paternal Aunt x3 ??? Gastrointestinal Disease Brother irritable bowel ??? Gastrointestinal Disease Sister ciliac disease ??? Colon Cancer No family hx of ??? Macular Degeneration No family hx of Social History Tobacco Use ??? Smoking status: Never Smoker ??? Smokeless tobacco: Never Used Substance Use Topics ??? Alcohol use: No Frequency: Never Objective BP 124/74 (BP Location: Left arm, Patient Position: Sitting, Cuff Size: Adult Large) Pulse 78 Temp 97.5 ??F (36.4 ??C) (Oral) Resp 16 Ht 1.702 m (5' 7) Wt (!) 159.5 kg (351 lb 11.2 oz) SpO2 95% BMI 55.08 kg/m?? Vitals taken by Danni Marcus RN Physical Exam Constitutional: General: She is not in acute distress. Appearance: She is not ill-appearing or toxic-appearing. HENT: Head: Normocephalic. Right Ear: External ear normal. Left Ear: External ear normal. Nose: Nose normal. Mouth/Throat: Mouth: Mucous membranes are moist. Eyes: Conjunctiva/sclera: Conjunctivae normal. Cardiovascular: Rate and Rhythm: Regular rhythm. Heart sounds: Normal heart sounds. No murmur. No friction rub. No gallop. Pulmonary: Effort: Pulmonary effort is normal. No respiratory distress. Breath sounds: Normal breath sounds. No wheezing, rhonchi or rales. Abdominal: General: Bowel sounds are normal. There is distension. Palpations: Abdomen is soft. Tenderness: There is no abdominal tenderness. Musculoskeletal: Comments: Brace along left ankle. Edema of both LE, no pitting, wraps along lower regions of LE. Skin: General: Skin is warm. Comments: Left ischial region without large wound with packed dressing, no adjacent skin erythema. Neurological: Mental Status: She is alert. Psychiatric: Mood and Affect: Mood normal. Behavior: Behavior normal. Thought Content: Thought content normal. Judgment: Judgment normal. I spent greater than 50% of the 115 minutes in the visit coordinating care regarding patient's recommendations towards medication review, discussion on lymphedema treatment, discussion of EMG report, discussion of weight loss efforts with weight management. Return in about 3 months (around 07/31/2020) for using a video visit-no MTM needed. Patient's support system: Daughter Jaiden Holcomb MD [facility] documented in this encounter Miscellaneous Notes Assessment & Plan Note - Danni Marcus RN - 04/30/2020 2:10 PM CDTAssociated Problem(s): Injury of sciatic nerve EMG done 03/09/20-Interpretation: This is an abnormal but limited study. 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 Because of anticoagulation therapy and body habitus proximal lower limb muscles were not evaluated with needle EMG. As such, a more proximal injuryto the lumbosacral plexus rather than the sciatic nerve can not be excluded. There is no evidence ofmotor unit continuity to distal muscles innervated by the sciatic nerve. Physical therapy and OT thru home care. OT to assess need for new brace. Continue wound care of left ischial region. Able to ambulate with left ankle brace, has left foot drop. Assessment & Plan Note - Danni Marcus RN - 04/30/2020 2:03 PM CDTAssociated Problem(s): Essential hypertension, benign BP Readings from Last 3 Encounters: 04/30/20 124/74 09/23/19 (!) 154/92 09/11/19 138/86 Stop hydrochlorothiazide. Recheck blood pressure in one week. Continue losartan 50mg daily. Assessment & Plan Note - Danni Marcus RN - 04/30/2020 1:46 PM CDTAssociated Problem(s): Need for prophylactic vaccination and inoculation against influenza (Resolved10/09/2021) High dose Flu vaccine given today. Assessment & Plan Note - Danni Marcus RN - 04/30/2020 1:24 PM CDTAssociated Problem(s): CEFERNIO on CPAP Patient feels like she is sleeping fairly well and she uses her CPAP at night. Assessment & Plan Note - Danni Marcus RN - 04/29/2020 2:34 PM CDTAssociated Problem(s): Seizure (H) No seizure activity since beginning the Kera in Mar 2019. Assessment & Plan Note - Danni Marcus RN - 04/29/2020 2:27 PM CDTAssociated Problem(s): Lymphedema of both lower extremities Use of daily wraps and Flexitouch pumps. Started Hydrochlorothiazide in January. Assessment & Plan Note - Danni Marcus RN - 04/29/2020 2:25 PM CDTAssociated Problem(s): Morbid obesity -- BMI 55-60 Dr. Braxton Rivera (04/05)-Aiming for 100 grams of protein daily is a good start, 30-35 grams per meal, every 4-5 hours and avoiding any snacks after supper. Hydrating well with 80 oz of water daily to prevent dizziness and adequate hydration as a minimum. You declined weight loss medication today but we discussed either naltrexone or Plenity in the future if needed/available and affordable. I wouldn't phentermine given some occasional excess heart beats today and topamax may have some sedation effects that could compromise self care. Saxenda is not covered by medicare and is too expensive as a result. Bupropion products and Contrave (bupropion/naltrexone combo med) have increased seizure risks (as does phentermine) so I'd avoid these in your case. Had a video visit with Dietitian. Next follow-up with Nicole is 05/20. Assessment & Plan Note - Danni Marcus RN - 04/29/2020 2:06 PM CDTAssociated Problem(s): Pressure ulcer of ischium, left, stage IV (H) Office appointment with infectious disease yesterday-MRI scheduled 05/04 If has osteomyelitis, then will need 4 [...] positive then a picc will be placed documented in this encounter Plan of Treatment Upcoming Encounters Date Type Specialty Care Team Description 11/15/2022 Virtual Visit Pharm Haylie Gonzalez, [facility] [address] [place] [address] [place] [phone] (Wo rk) 11/15/2022 Virtual Visit IM/Peds Yane Barraza MD [address] [place] [address] [place] [phone] (Wo rk) 03/03/2023 Virtual Visit Neurology Erlinda Barber MD [address] [facility] [address] [place], [place] [id number] (Wo rk) documented as of this encounter Visit Diagnoses Diagnosis Pressure ulcer of ischium, left, stage I V (H) - Primary Morbid obesity -- BMI 55.6 Morbid obesity Lymphedema of both lower extremities Seizure (H) Other convulsions CEFERINO on CPAP Obstructive sleep apnea (adult) (pediatr ic) Essential hypertension, benign Injury of left sciatic nerve, subsequent encounter Need for prophylactic vaccination and in oculation against influenza documented in this encounter Additional Health Concerns Assessment Noted Time PHQ-9 Depression Total Score: 4 04/12/2019 7:03 AM CDT documented as of this encounter Care Teams Professor Criminal Justice Relationship Specialty Start Date End Date Jaiden Holcomb PCP - General Internal Medicine 02/13/2010/03 MD Jayesh [address] [place] [address] [place] [id number] Chastity Montero MD Dermatology 09/23/14 MD Martha [address] [facility] [address] [place], [place] [phone] Johnnie Alcocer MD Surgeon General Surgery 03/23/[address] [place], [place] [address] Danni Marcus, CHANDLER Personal Advocate & 01/09/1901/17 Liaison (PAL) Fernando, Ea Complex 04/23/19 Svetlana Osman Pharmacist Pharmacotherapy 04/23/19 Era, [facility] [address] [place], [place] [phone] Haylie Cheung, Pharmacist Pharmacist 09/11/19 [facility] [address] [place], [place] [id number] Galdino Valdez MD Assigned PCP 11/10/19 05/23/20 [address] [place], [place] [phone] documented as of this encounter
--- OUTSIDE RECORDS SUMMARY | 2022-06-15 12:52 | XMS_ITS | Encounter Summary ---
:1945 Author Organization [place] Address [address] [place] [address] Care Team Providers Name Role Phone Chastity Montero MD Unavailable [phone] Johnnie Alcocer MD Unavailable Danni Marcus RN Unavailable Unavailable Mtm, Ea Complex Unavailable Unavailable Svetlana Osman [facility] Unavailable [phone] Haylie Cehung [facility] Unavailable [phone] Galdino Valdez MD Unavailable Jaiden Holcomb MD Primary Care Provider Reason for Visit Reason Comments Annual Eye Exam Encounter Details Date Type Department Care Team Description 05/06/2020 Office Visit [facility] Hayley German (Primary Dx); Clinic Yarelis Yan, OD Dry eye; [address] [place] [facility] Pseud ophakia; [facility] [address] Macular degeneration (senile) of retina; [address] [place] [address] Myopia of both eyes [place] [phone] Social History Tobacco Use [...] documented as of this encounter Progress Notes Hayley German, OD - 05/06/2020 3:00 PM CDT Chief Complaint Patient presents with ??? Annual Eye Exam Pt was seen 02/07/[address] [facility]. For decreased vision each eye, Dry AMD, 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 dry stage right eye and left eye. Cobblestone degeneration of retina each eye. Will follow up again in one year. She has a form from the DMV to fill out today. Pt states her vision is stable at this time. Last Eye Exam: 12/18/18 Dr. German, Cataract surgery & 02/2019 Dr Church at [facility], [facility] Dilated Previously: Yes What are you currently using to see? glasses Distance Vision Acuity: Satisfied with vision Near Vision Acuity: Satisfied with vision while reading and using computer with glasses Eye Comfort: good Do you use eye drops? : Yes: Systane Ultra: daily, just because somebody told her to. She uses a CPAP that blows in her eyes. She has a new mask that blows less, she has only had this new mask for about 2-3 months. Nida Kramer CPO Medical, surgical and family histories reviewed and updated 05/06/2020. OBJECTIVE: See Ophthalmology exam ASSESSMENT: ICD-10-CM 1. Presbyopia H52.4 2. Dry eye H04.129 3. Pseudophakia Z96.1 mild RE change visual acuity improvement R only PLAN: Called Retina center no automated field was done A synopsis of their last record was scanned Optional update minimal visual acuity improvement Filled out DMV form and gave a copy to patient Hayley German OD Automated vf was faxed from Retina center documented in this encounter Plan of Treatment Upcoming Encounters Date Type Specialty Care Team Description 11/15/2022 Virtual Visit Pharm D Haylie Cheung, [facility] [address] [place] [address] [place] [id number] (Wo rk) 11/15/2022 Virtual Visit [place] [address] [place] [address] [place] [phone] (Wo rk) 03/03/2023 Virtual Visit Neurology Erlinda Barber MD [address] [facility] [address] [place] [address] (Wo rk) documented as of this encounter Procedures Procedure Name Priority Date/Time Associated Diagnosis Comme nts [place] REFRACTION Routine 05/06/2020 5:16 PM CDT Presbyopi a Myopia of both eyes documented in this encounter Visit Diagnoses Diagnosis Presbyopia - Primary Dry eye Pseudophakia Lens replaced by other means Macular degeneration (senile) of retina Macular degeneration (senile) of retina, unspecified Myopia of both eyes Myopia documented in this encounter Additional Health Concerns Assessment Noted Time PHQ-9 Depression Total Score: 4 04/12/2019 7:03 AM CDT documented as of this encounter Care Teams Brake Shoe Rebuilder Relationship Specialty Start Date End Date Jaiden Holcomb PCP - General Internal Medicine 02/13/2010/03 MD Jayesh [address] [facility] [place] [address] Chastity Monteor MD Dermatology 09/23/14 MD Martha [address] [facility] [address] [place], [place] [address] Johnnie Alcocer MD Surgeon General Surgery 03/23/[address] [place], [place] [phone] Danni Marcus, CHANDLER Personal Advocate & 01/09/1901/17 Liaison (PAL) Fernando Ea Complex 04/23/19 Svetlana Osman Pharmacist Pharmacotherapy 04/23/19 Era, [facility] [address] [place] [address] Haylie Cheung, Pharmacist Pharmacist 09/11/[address] [place], [place] [phone] Galdino Valdez MD Assigned PCP 11/10/19 05/23/20 [address] [place], [place] [phone] documented as of this encounter
--- OUTSIDE RECORDS SUMMARY | 2022-06-15 12:52 | XMS_ITS | Encounter Summary ---
:1945 Author Organization [place] Address [address] [facility] [place] [address] Care Team Providers Name Role Phone Chastity Montero MD Unavailable [phone] Johnnie Alcocer MD Unavailable Danni Marcus RN Unavailable Unavailable Mtm, Ea Complex Unavailable Unavailable Svetlana Osman [facility] Unavailable [phone] Haylie Cheung [facility] Unavailable [phone] Galdino Valdez MD Unavailable Jaiden Holcomb MD Primary Care Provider [phone] Kendall Joseph MD Unavailable Erlinda Barber MD Unavailable Encounter Details Date Type Department Care Team Description 05/07/2020 Home Infusion [place] [facility] Reva Galvez, [facility] [address] [facility] [address] [place], [place] [phone] 328 [facility] [phone] [place] [address] (Wo rk) Social History Tobacco [...] documented as of this encounter Progress Notes Agustin Post - 05/07/2020 11:59 PM CDT This is a recent snapshot of the patient's [facility] medical record. For current drug dose and complete information and questions, call [phone] or In [facility], [facility] ([id number]) CSN Number: [id number] documented in this encounter Plan of Treatment Upcoming Encounters Date Type Specialty Care Team Description 11/15/2022 Virtual Visit Pharm D Haylie Cheung, [facility] [address] [facility] [place] [address] (Lena max) 11/15/2022 Virtual Visit IM/Peds Yane Barraza MD [address] [facility] [place] [address] (Lena max) 03/03/2023 Virtual Visit Neurology Erlinda Barber MD [address] [facility] 295 [place], [place] [address] (Wo rk) documented as of this encounter Visit Diagnoses Not on filedocumented in this encounter Additional Health Concerns Assessment Noted Time PHQ-9 Depression Total Score: 4 04/12/2019 7:03 AM CDT documented as of this encounter Care Teams Patch Worker Relationship Specialty Start Date End Date Jaiden Holcomb PCP - General Internal Medicine 02/13/2010/03 MD Jayesh [address] [facility] [address] [place] [id number] Chastity Montero MD Dermatology 09/23/14 420 [facility] 98 [place], [place] [address] Johnnie Alcocer MD Surgeon General Surgery 03/23/17 [address] [facility] 300 [place], [place] [id number] Danni Marcus, CHANDLER Personal Advocate & 01/09/1901/17 Liaison (PAL) Fernando, Ea Complex 04/23/19 Svetlana Osman, Pharmacist Pharmacotherapy 04/23/19 [facility] [address] [place] [address] Haylie Cheung, Pharmacist Pharmacist 09/11/[address] [place] [address] Galdino Valdez MD Assigned PCP 11/10/19 05/23/20 [address] [place] [address] Opal, Assigned Sleep 05/08/20 03/27/21 Kendall Meehan MD Provider [address] [facility] 106 [place], [place] [address] Erlinda Barber MD Assigned Neuroscience 05/08/20 01/26/21 420 [facility] 295 [place] [address] documented as of this encounter
--- OUTSIDE RECORDS SUMMARY | 2022-06-15 12:52 | XMS_ITS | Encounter Summary ---
:1945 Author Organization [place] Address [address] [place] [address] Care Team Providers Name Role Phone Chastity Montero MD Unavailable [phone] Johnnie Alcocer MD Unavailable Danni Marcus RN Unavailable Unavailable Mtm, Ea Complex Unavailable Unavailable Svetlana Osman [facility] Unavailable [phone] Haylie Cheung [facility] Unavailable [phone] Galdino Valdez MD Unavailable Jaiden Holcomb MD Primary Care Provider [phone] Encounter Details Date Type Department Care Team Description 05/06/2020 Travel Social History Tobacco Use Types Packs/Day [...] More than 4 times per year 05/03/2021 quaker services? Do you belong to any clubs [...] Pharm Haylie Gonzalez, [facility] [address] [facility] [place] [address] (Wo rk) 11/15/2022 Virtual Visit IM/Yane Mathias MD [address] [place] [address] [place] [address] (Wo rk) 03/03/2023 Virtual Visit Neurology Erlinda Barber MD [address] [place] [address] 295 [place] [address] (Wo rk) documented as of this encounter Visit Diagnoses Not on filedocumented in this encounter Additional Health Concerns Assessment Noted Time PHQ-9 Depression Total Score: 4 04/12/2019 7:03 AM CDT documented as of this encounter Care Teams Baggage Clerk Relationship Specialty Start Date End Date Jaiden Holcomb PCP - General Internal Medicine 02/13/2010/03 MD Jayesh [address] [place] [address] [place] [id number] Chastity Montero MD Dermatology 09/23/14 MD Martha 420 [facility] 98 [place], [place] [address] Johnnie Alcocer MD Surgeon General Surgery 03/23/17 [address] [facility] 300 [place], [place] [phone] Danni Marcus, RN Personal Advocate & 01/09/1901/17 Liaison (PAL) Kyle King Complex 04/23/19 Svetlana Osman Pharmacist Pharmacotherapy 04/23/19 Era, [facility] [address] [place], [place] [id number] Haylie Cheung, Pharmacist Pharmacist 09/11/19 [facility] [address] [place] [address] [phone] Galdino Valdez MD Assigned PCP 11/10/19 05/23/20 [address] [place] [address] documented as of this encounter
--- OUTSIDE RECORDS SUMMARY | 2022-06-15 12:52 | XMS_ITS | Encounter Summary ---
:1945 Author Organization [place] Address [address] [place] [address] Care Team Providers Name Role Phone Chastity Montero MD Unavailable [phone] Johnnie Alcocer MD Unavailable Danni Marcus RN Unavailable Unavailable Mtm, Ea Complex Unavailable Unavailable Svetlana Osman [facility] Unavailable [phone] Haylie Cheung [facility] Unavailable [phone] Galdino Valdez MD Unavailable Jaiden Holcomb MD Primary Care Provider [phone] Kendall Joseph MD Unavailable Erlinda Barber MD Unavailable Jaiden Holcomb MD Unavailable [phone] Encounter Details Date Type Department Care Team Description 05/07/2020 Office Visit - M [facility] Osteomye litis (H); [facility] Other ch ronic osteomyelitis, unspecified site (H) [address] [address] Social History Tobacco Use Types Packs/Day Years [...] / COVID-19? documented as of this encounter Procedure Notes Solomon Sterling RN - 05/07/2020 2:30 PM CDT PICC Line Insertion Procedure Note Pt. Name: Charlette Brush Procedure: Insertion of a SINGLE Lumen 4 fr Bard SOLO (valved) Power PICC, Lot number [id number] Indications: IV Antibiotic Contraindications : None Procedure Details Patient identified with 2 identifiers and Time Out conducted. . Central line insertion bundle followed: hand hygiene performed prior to procedure, site cleansed with cholraprep, hat, mask, sterile gloves,sterile gown worn, patient draped with maximum barrier head to toe drape, sterile field maintained. The vein was assessed and found to be compressible and of adequate size. 1.5 ml 1% Lidocaine administered sq to the insertion site. A 4 Fr PICC was inserted into the CEPHALIC vein of the right arm withultrasound guidance. ONE attempt(s) required to access vein. Catheter threaded without difficulty. Good blood return noted. Modified Seldinger Technique used for insertion. The 8 sharps that are included in the PICC insertion kit were accounted for and disposed of in the sharps container prior to breakdown of the sterile field. Catheter secured with Statlock, biopatch and Tegaderm dressing applied. Findings: Total catheter length 47 cm, with 1 cm exposed. Mid upper arm circumference is 58 cm. Catheter was flushed with 20 cc NS. Patient tolerated procedure well. Tip placement verified by xray. Xray read by Dr. Momin . Tip placement: Right upper extremity PICC tip in low SVC CLABSI prevention brochure left at bedside. Patient's primary RN notified PICC is ready for use. Comments: Solomon Martin, RN, MSN, VISUAL MANAGER, [place]- Vascular Access - [facility] documented in this encounter Plan of Treatment Upcoming Encounters Date Type Specialty Care Team Description 11/15/2022 Virtual Visit Pharm Haylie Gonzalez, [facility] [address] [facility] [place] [id number] (Wo rk) 11/15/2022 Virtual [place] [address] [place] [address] [place] [id number] (Wo rk) 03/03/2023 Virtual Visit Neurology Erlinda Barber MD 420 [facility] 295 [place], [place] [phone] (Wo rk) documented as of this encounter Procedures Procedure Name Priority Date/Time Associated Diagnosis Comme nts MRI IMAGING - HIM SCAN 05/07/2020 documented in this encounter Results MRI IMAGING - HIM SCAN (05/07/2020) Anatomical Region Laterality Modality Other Narrative This result has an attachment that is no t available. Historical Provider IMG MRI ORDERABLES documented in this encounter Visit Diagnoses Diagnosis Osteomyelitis (H) Unspecified osteomyelitis, site unspecif ied Other chronic osteomyelitis, unspecified site (H) documented in this encounter Additional Health Concerns Assessment Noted Time PHQ-9 Depression Total Score: 4 04/12/2019 7:03 AM CDT documented as of this encounter Care Teams Hose Maker Relationship Specialty Start Date End Date Zhang, Jaiden PCP - General Internal Medicine 02/13/2010/03 MD Jayesh [address] [facility] [address] [place], [place] [phone] Chastity Montero MD Dermatology 09/23/14 420 [facility] 98 [place], [place] [address] Johnnie Alcocer MD Surgeon General Surgery 03/23/[address] [place], [place] [address] Danni Marcus, CHANDLER Personal Advocate & 01/09/1901/17 Liaison (PAL) Fernando Ea Complex 04/23/19 Svetlana Osman, Pharmacist Pharmacotherapy 04/23/19 [facility] [place] [phone] Haylie Cheung, Pharmacist Pharmacist 09/11/[address] [place] [phone] Galdino Valdez MD Assigned PCP 11/10/19 05/23/20 [address] [place], [place] [phone] Opal, Assigned Sleep 05/08/20 03/27/21 Kendall Meehan MD Provider [address] [place] [address] [place], [place] [phone] Erlinda Barber MD Assigned Neuroscience 05/08/20 01/26/21 420 [facility] 295 [place] [address] Jaiden Holcomb Assigned PCP 05/24/20 MD Jayesh 909 [place] [address] documented as of this encounter
--- OUTSIDE RECORDS SUMMARY | 2022-06-15 12:52 | XMS_ITS | Encounter Summary ---
:1945 Author Organization [place] Address [facility]0 [place] [address] Care Team Providers Name Role Phone Chastity Montero MD Unavailable [phone] Johnnie Alcocer MD Unavailable Danni Marcus RN Unavailable Unavailable Mtm, Ea Complex Unavailable Unavailable Svetlana Osman [facility] Unavailable [phone] Haylie Cheung [facility] Unavailable [phone] Galdino Valdez MD Unavailable Jaiden Holcomb MD Primary Care Provider [phone] Encounter Details Date Type Department Care Team Description 05/07/[address] [facility] Djevi, Oste omyelitis (H) [facility] MD Ruth Diagnostic Imaging [facility] INFECTIOUS [address] [place] [address] DISEASE [place], [place] [address] [facility] [address] [facility] [phone] [place], [place] [phone] (Wo rk) Social History Tobacco Use Types [...] 05/03/2021 organizations such as shinto groups, unions, frakapturem or athletic groups, or school groups? How [...] / COVID-19? documented as of this encounter Medications at Time of Discharge Medication Sig Dispensed Refills Start Date End Date cetirizine (ZYRTEC) 10 MG Take 10 mg by mouth 0 tablet 2 times daily hydrocortisone 2.5 % Daily as needed to 180 g 3 019 ointmentIndications: rash on arms and Dermatitis legs Multiple Take 1 tablet by 0 Vitamins-Minerals mouth 2 times daily (PRESERVISION/LUTEIN) CAPS [place]-3 Fatty Acids (FISH Take 1 g by mouth 0 OIL PO) daily Udue-gya-chkvomb Probiotic Product Take 1 capsule by 0 (PROBIOTIC PO) mouth daily Renew Life Probiotic vitamin C (ASCORBIC ACID) Take 1,000 mg by 0 1000 MG TABS mouth daily acetaminophen (TYLENOL) Take 2 tablets (650 0 07/201805/04/2021 325 MG tabletIndications: mg) by mouth every Pain 4 hours as needed for mild pain atenolol (TENORMIN) 25 MG Take 1 tablet (25 180 tablet 1 10/05/2020 tabletIndications: mg) by mouth 2 Essential hypertension, times daily benign Cholecalciferol (VITAMIN Take 5,000 Units by 0 10/04/2021 D PO) mouth daily ferrous sulfate (FEROSUL) TAKE 1 TABLET(325 100 tablet 3 02/ 10/05/2020 325 (65 Fe) MG MG) BY MOUTH every tabletIndications: Iron other day DAILY deficiency anemia, WITH BREAKFAST unspecified iron deficiency anemia type glutamine 500 MG capsule Take 500 mg by 0 08/03/2020 mouth 2 times daily End date today. levETIRAcetam (KEPPRA) Take 1 tablet (500 180 tablet 3 01/2303/17/2021 500 MG tabletIndications: mg) by mouth 2 Recurrent seizures (H) times daily losartan (COZAAR) 50 MG Take 1 tablet (50 90 tablet 1 04/3003/16/2021 tabletIndications: mg) by mouth daily Essential hypertension, benign multivitamin w/minerals Take 1 tablet by 0 05/04/2021 (THERA-VIT-M) tablet mouth daily nystatin (MYCOSTATIN) Apply topically 90 g 11 0 03/16/2021 [id number] UNIT/GM external daily as needed creamIndications: (irritation) Dermatitis nystatin (NYSTOP) 624833 APPLY TOPICALLY TO 180 g 8 12/21/2020 UNIT/GM external THE AFFECTED AREA powderIndications: BENEATH BILATERAL Dermatitis BREAST/GROIN FOLDS TWICE DAILY UNTIL RESOLVED order for DMEIndications: Equipment being ordered: Bariatric 4-wheeled walker 1 each 0 03/08/2019 12/17/2021 Lymphedema of both lower Seat width needs to be 20 inches or greater extremities, Morbid Handlebar width needs to be 22 inches or greater obesity (H), Left foot drop triamcinolone (KENALOG) Apply topically 2 45 g 0 09/1105/17/2022 0.1 % external times daily as ointmentIndications: needed for Dermatitis irritation warfarin ANTICOAGULANT TAKE 1 TABLET BY 90 tablet 1 020 07/20/2020 (COUMADIN) 10 MG MOUTH EVERY DAY, tabletIndications: Long ADJUST DOSE PER INR term current use of RESULTS. 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 warfarin ANTICOAGULANT Take 5 mg every 150 tablet 0 04/01/20 20 06/23/2020 (COUMADIN) 5 MG Tue, Fri; and 10 mg tabletIndications: all other days or Personal history of as directed by INR pulmonary embolism, Long clinic term current use of 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 zinc gluconate 50 MG Take 50 mg by mouth 0 08/03/2020 tablet daily For 14 days, then every other day. documented as of this encounter Plan of Treatment Upcoming Encounters Date Type Specialty Care Team Description 11/15/2022 Virtual Visit Pharm D Haylie Cheung, [facility] [address] [facility] [place] [address] (Wo rk) 11/15/2022 Virtual Visit IM/Peds Yane Barraza MD [address] [facility] [place] [address] (Wo rk) 03/03/2023 Virtual Visit Neurology Erlinda Barber MD 420 [facility] 295 [place] [address] (Wo rk) documented as of this encounter Procedures Procedure Name Priority Date/Time Associated Diagnosis Comme nts XR CHEST PICC LINE Routine 05/07/2020 3:49 PM Osteomyelitis (H ) Results for this PLACEMENT 1 VIEW CDT procedure a re in the results section. documented in this encounter Results XR Chest PICC Placement 1 View (05/07/2020 3:49 PM CDT) Anatomical Region Laterality Modality Chest Other Specimen (Source) Anatomical Location Collection Method / Collectio n Time Received Time / Laterality Volume Impressions 05/07/2020 3:51 PM CDT Right upper extremity PICC tip in low SV C. Stable cardiomegaly with normal vascularity. No focal consolidation, pne umothorax nor pleural effusion. Narrative 05/07/2020 3:51 PM CDT EXAM: XR CHEST 1 VIEW FOR PICC LINE PLACEMENT LOCATION: [facility] DATE/TIME: 05/07/2020 3:49 PM INDICATION: Check PICC placement. COMPARISON: 06/18/2019 Procedure Note Reggie Momin MD - 12/24/2020Forma tting of this note might be different from the original. EXAM: XR CHEST 1 VIEW FOR PICC LINE PLAC EMENT LOCATION: [facility] DATE/TIME: 05/07/2020 3:49 PM INDICATION: Check PICC placement. COMPARISON: 06/18/2019 IMPRESSION: Right upper extremity PICC tip in low SV C. Stable cardiomegaly with normal vascularity. No focal consolidation, pneumothorax nor pleural effusion. Ruth John MD IMG DIAGNOSTIC IMAGING ORDER CONY documented in this encounter Visit Diagnoses Diagnosis Osteomyelitis (H) Unspecified osteomyelitis, site unspecif ied documented in this encounter Additional Health Concerns Assessment Noted Time PHQ-9 Depression Total Score: 4 04/12/2019 7:03 AM CDT documented as of this encounter Care Teams Transcribing Machine Mechanic Relationship Specialty Start Date End Date Jaiden Holcomb PCP - General Internal Medicine 02/13/2010/03 MD Jayesh [address] [facility] [place] [address] Chastity Montero MD Dermatology 09/23/14 MD Martha 420 [facility] 98 [place], [place] [phone] Johnnie Alcocer MD Surgeon General Surgery 03/23/[address] [place], [place] [phone] Danni Marcus, CHANDLER Personal Advocate & 01/09/1901/17 Liaison (PAL) [place], Ea Complex 04/23/19 Svetlana Osman Pharmacist Pharmacotherapy 04/23/19 Era, [facility] [address] [place] [address] Haylie Cheung, Pharmacist Pharmacist 09/11/19 [facility] [address] [place] [phone] Galdino Valdez MD Assigned PCP 11/10/19 05/23/20 [address] [place], [place] [phone] documented as of this encounter
--- OUTSIDE RECORDS SUMMARY | 2022-06-15 12:52 | XMS_ITS | Encounter Summary ---
:1945 Author Organization [place] Address [address] [place] [address] Care Team Providers Name Role Phone Chastity Montero MD Unavailable [phone] Johnnie Alcocer MD Unavailable Danni Marcus RN Unavailable Unavailable Mtm, Ea Complex Unavailable Unavailable Svetlana Osman [facility] Unavailable [phone] Haylie Cheung [facility] Unavailable [phone] Galdino Valdez MD Unavailable Jaiden Holcomb MD Primary Care Provider [phone] Encounter Details Date Type Department Care Team Description 04/30/2020 Travel Social History Tobacco Use Types Packs/Day [...] D Haylie Cheung, [facility] 14[address] [facility] [place] [address] (Wo rk) 11/15/2022 Virtual Visit IM/Yane Mathias MD [address] [place] [address] [place] [address] (Wo rk) 03/03/2023 Virtual Visit Neurology Erlinda Barber MD [address] [place] [address] 295 [place] [address] (Wo rk) documented as of this encounter Visit Diagnoses Not on filedocumented in this encounter Additional Health Concerns Assessment Noted Time PHQ-9 Depression Total Score: 4 04/12/2019 7:03 AM CDT documented as of this encounter Care Teams Accelerator Technician Relationship Specialty Start Date End Date Jaiden Holcomb PCP - General Internal Medicine 02/13/2010/03 MD Jayesh [address] [place] [address] [place] [id number] Chastity Montero MD Dermatology 09/23/14 MD Martha 420 [facility] 98 [place], [place] [address] Johnnie Alcocer MD Surgeon General Surgery 03/23/17 [address] [facility] 300 [place], [place] [phone] Danni Marcus, RN Personal Advocate & 01/09/1901/17 Liaison (PAL) Kyle King Complex 04/23/19 Svetlana Osman Pharmacist Pharmacotherapy 04/23/19 Era, [facility] [address] [place] [phone] Haylie Cheung, Pharmacist Pharmacist 09/11/19 [facility] [address] [place] [address] [phone] Galdino Valdez MD Assigned PCP 11/10/19 05/23/20 [address] [place] [address] documented as of this encounter
--- OUTSIDE RECORDS SUMMARY | 2022-06-15 12:52 | XMS_ITS | Encounter Summary ---
:1945 Author Organization [facility] Address [address] [place] [address] Care Team Providers Name Role Phone Chastity Montero MD Unavailable [phone] Johnnie Alcocer MD Unavailable Danni Marcus RN Unavailable Unavailable Mtm, Ea Complex Unavailable Unavailable Svetlana Osman [facility] Unavailable [phone] Haylie Cheung [facility] Unavailable [phone] Galdino Valdez MD Unavailable Jaiden Holcomb MD Primary Care Provider Kendall Joseph MD Unavailable Erlinda Barber MD Unavailable Jaiden Holcomb MD Unavailable [phone] Encounter Details Date Type Department Care Team Description 04/22/2020 [facility] [place] [id number] [facility] [address] [place] [address] Social History Tobacco Use Types [...] or relatives? How often do you attend worship or More than 4 times per year 05/03/2021 oriental orthodox services? Do you belong to any clubs or No 05/03/2021 organizations such as worship groups, unions, fraBrevity or athletic groups, or school groups? How [...] Miscellaneous Notes Letter - Historical Provider - 12/31/2020 11:32 PM CDT Letter by Patience Martinez RN at Author: Patience Martinez RN Service: -- Author Type: -- Filed: Encounter Date: 04/22/2020 Status: (Other) 04/22/2020 [facility] Fax: Wound Dressing Rx and Order Form Customer Service: Order Status: New Order Verbal: Patience Martinez RN Patient Info: Name: Charlettesunday Brush : 1945 Address: [address] [place] [address] [place] [address] PLEASE CONTACT PATIENT TO PAY OUT OF POCKET Insurance Info: Primary: Payor: MEDICARE / Plan: MEDICARE A AND B / Product Type: Medicare / Secondary: N/A N/A [id number] - (Medicare) Physician Info: Name: Kajal Huggins MD Dept Address/Phones: [address] [place] [address], [address] [facility] [address] Wound info: No diagnosis found. VASC Wound 05/15/19 Buttocks (Active) Pre Size Length 8 04/21/20 1400 Pre Size Width 5 04/21/20 1400 Pre Size Depth 6 04/21/20 1400 Pre Total Sq cm 40 04/21/20 1400 [...] Pre Total Sq cm 0.06 03/24/20 1100 PLEASE CONTACT PATIENT TO PAY OUT OF POCKET Dressing Type Brand Size Number of pieces Frequency of change Primary Prontosan wound gel 1 bottle 3 times a week Secondary Tape Note: If total out of pocket is more than $50.00 please contact the patient before processing order. OK to forward to covered supplier. Electronically Signed Physician: Dr. Kajal Huggins MD Date: 04/22/2020 documented in this encounter Plan of Treatment Upcoming Encounters Date Type Specialty Care Team Description 11/15/2022 Virtual Visit Pharm Haylie Gonzalez, [facility] [address] [facility] [place] [address] (Wo rk) 11/15/2022 Virtual Visit IM/Peds Yane Barraza MD [address] [facility] [place] [address] (Wo rk) 03/03/2023 Virtual Visit Neurology Erlinda Barber MD [address] [facility] 295 [place] [address] (Wo rk) documented as of this encounter Visit Diagnoses Not on filedocumented in this encounter Additional Health Concerns Assessment Noted Time PHQ-9 Depression Total Score: 4 04/12/2019 7:03 AM CDT documented as of this encounter Care Teams Manifest/Order Organizer Print Orders Relationship Specialty Start Date End Date Jaiden Holcomb PCP - General Internal Medicine 02/13/2010/03 MD Jayesh [address] [facility] [place] [address] Chastity Montero MD Dermatology 09/23/14 MD 420 [facility] 98 [place] [address] Johnnie Alcocer MD Surgeon General Surgery 03/23/17 [address] [facility] 300 [place] [address] Danni Marcus, CHANDLER Personal Advocate & 01/09/1901/17 Liaison (PAL) Fernando, Ea Complex 04/23/19 Svetlana Osman, Pharmacist Pharmacotherapy 04/23/19 [facility] [address] [place] [address] Haylie Cheung, Pharmacist Pharmacist 09/11/19 [facility] [address] [place] [address] Galdino Valdez MD Assigned PCP 11/10/19 05/23/20 [address] [place], [place] [id number] Opal, Assigned Sleep 05/08/20 03/27/21 Kendall Meehan MD Provider [address] [place], [place] [id number] Erlinda Barber MD Assigned Neuroscience 05/08/20 01/26/21 420 [facility] [address] [place] [address] Jaiden Holcomb Assigned PCP 05/24/20 MD Jayesh 909 [place] [address] documented as of this encounter
--- OUTSIDE RECORDS SUMMARY | 2022-06-15 12:52 | XMS_ITS | Encounter Summary ---
:1945 Author Organization [place] Address [address] [place] [address] Care Team Providers Name Role Phone Chastity Montero MD Unavailable [phone] Johnnie Alcocer MD Unavailable Danni Marcus RN Unavailable Unavailable Mtm, Ea Complex Unavailable Unavailable Svetlana Osman [facility] Unavailable [phone] Haylie Cheung [facility] Unavailable [phone] Galdino Valdez MD Unavailable Jaiden Holcomb MD Primary Care Provider [phone] Kendall Joseph MD Unavailable Erlinda Barber MD Unavailable Jaiden Holcomb MD Unavailable [phone] Encounter Details Date Type Department Care Team Description 04/28/2020 [facility] Other income auditor [facility] osteomyelit is, Laboratory unspecified site (H) [address] [facility] [address] [place] [address] Social History Tobacco Use Types Packs/Day [...] 05/03/2021 organizations such as orthodox groups, unions, fraternal or athletic groups, [...] Cheung, [facility] [address] [facility] [place] [address] (Wo rk) 11/15/2022 Virtual Visit IM/Peds Yane Barraza MD [address] [facility] [place] [id number] (Wo rk) 03/03/2023 Virtual Visit Neurology Erlinda Barber MD 420 [facility] 295 [place] [address] (Wo rk) documented as of this encounter Procedures Procedure Name Priority Date/Time Associated Comments Diagnosis CBC WITH PLATELETS Routine 04/28/2020 11:26 Resul ts for this AND DIFFERENTIAL AM CDT procedure a re in the results section. CRP INFLAMMATION Routine 04/28/2020 11:26 Results for this AM CDT procedure are i n the results section. BASIC METABOLIC PANEL Routine 04/28/2020 11:26 Re sults for this AM CDT procedure are i n the results section. documented in this encounter Results CBC WITH PLATELETS AND DIFFERENTIAL (04/28/2020 11:26 AM CDT) P athologist Signature WBC 6.8 4.0 - 11.0 04/28/2020 [facility] thou/uL 11:45 AM CDT RBC Count 4.68 3.80 - 04/28/2020 [facility] 5.40 11:45 AM CDT mill/uL Hemoglobin 14.7 12.0 - 04/28/2020 [facility] 16.0 g/dL 11:45 AM CDT Hematocrit 43.4 35.0 - 04/28/2020 [facility] 47.0 % 11:45 AM CDT MCV 93 80 - 100 04/28/2020 [facility] fL 11:45 AM CDT MCH 31.4 27.0 - 04/28/2020 [facility] 34.0 pg 11:45 AM CDT MCHC 33.9 32.0 - 04/28/2020 [facility] 36.0 g/dL 11:45 AM CDT RDW 11.7 11.0 - 04/28/2020 [facility] 14.5 % 11:45 AM CDT Platelet Count 291 140 - 440 04/28/2020 [facility] thou/uL 11:45 AM CDT Mean Platelet 7.8 7.0 - 10.0 04/28/2020 [facility] Volume fL 11:45 AM CDT % Neutrophils 66 50 - 70 % 04/28/2020 [facility] 11:45 AM CDT % Lymphocytes 21 20 - 40 % 04/28/2020 [facility] 11:45 AM CDT % Monocytes 8 2 - 10 % 04/28/2020 [facility] 11:45 AM CDT % Eosinophils 4 0 - 6 % 04/28/2020 [facility] 11:45 AM CDT % Basophils 1 0 - 2 % 04/28/2020 [facility] 11:45 AM CDT Absolute 4.5 2.0 - 7.7 04/28/2020 [facility] Neutrophils thou/uL 11:45 AM CDT Absolute 1.5 0.8 - 4.4 04/28/2020 [facility] Lymphocytes thou/uL 11:45 AM CDT Absolute 0.5 0.0 - 0.9 04/28/2020 [facility] Monocytes thou/uL 11:45 AM CDT Eosinophils 0.3 0.0 - 0.4 04/28/2020 [facility] Absolute thou/uL 11:45 AM CDT Absolute 0.0 0.0 - 0.2 04/28/2020 [facility] Basophils thou/uL 11:45 AM CDT Specimen Anatomical Collection Method / Collection Time Recei yudy Time (Source) Location / Volume Laterality Blood specimen Venipuncture / 04/28/2020 11:26 020 (specimen) Unknown AM CDT 11:26 AM CDT Ruth John MD LAB - BLOOD ORDERABLES Performing Organization Address City/State/ZIP Code Phon e Number [facility] [place] [address] [address] [facility] [address] [facility] [address] [place] [address] Basic metabolic panel (04/28/2020 11:26 AM CDT) athologist Signature Sodium 141 136 - 145 04/28/2020 [facility] mmol/L 5:45 PM CDT [facility] Potassium 4.4 3.5 - 5.0 04/28/2020 [facility] mmol/L 5:45 PM CDT [facility] Chloride 104 98 - 107 04/28/2020 [facility] mmol/L 5:45 PM CDT [facility] Carbon Dioxide 30 22 - 31 04/28/2020 [facility] (CO2) mmol/L 5:45 PM CDT [facility] Anion Gap 7 5 - 18 04/28/2020 [facility] mmol/L 5:45 PM CDT [facility] Glucose 79 70 - 125 04/28/2020 [facility] mg/dL 5:45 PM CDT [facility] Calcium 9.0 8.5 - 10.5 04/28/2020 [facility] mg/dL 5:45 PM CDT [facility] Urea Nitrogen 23 8 - 28 04/28/2020 [facility] mg/dL 5:45 PM CDT [facility] Creatinine 0.63 0.60 - 04/28/2020 [facility] 1.10 mg/dL 5:45 PM CDT [facility] GFR Estimate If >60 >60 04/28/2020 [facility] Black mL/min/1.7 5:45 PM CDT [address] LABORATORY GFR Estimate >60 >60 04/28/2020 [facility] mL/min/1.7 5:45 PM CDT [address] LABORATORY Specimen Anatomical Collection Method / Collection Time Recei yudy Time (Source) Location / Volume Laterality Blood specimen Venipuncture / 04/28/2020 11:26 020 3:59 (specimen) Unknown AM CDT PM CDT Narrative [facility] - 04/28/2020 5:45 PM CDT Fasting Glucose reference range is 70-99 mg/dL per [place] Diabetes Association (ADA) shanda bailon. Ruth John MD LAB - BLOOD ORDERABLES Performing Organization Address City/[facility] Phon e [place] [address] LABORATORY [address] [phone] (ABNORMAL) CRP inflammation (04/28/2020 11:26 AM CDT) P athologist Signature CRP 1.2 (H) 0.0 - 0.8 04/28/2020 [facility] mg/dL 5:46 PM CDT [facility] Specimen Anatomical Collection Method / Collection Time Recei yudy Time (Source) Location / Volume Laterality Blood specimen Venipuncture / 04/28/2020 11:26 020 3:59 (specimen) Unknown AM CDT PM CDT Ruth John MD LAB - BLOOD ORDERABLES Performing Organization Address City/[facility] [place] [address] [phone] [place] [address] [facility] documented in this encounter Visit Diagnoses Diagnosis Other chronic osteomyelitis, unspecified site (H) documented in this encounter Additional Health Concerns Assessment Noted Time PHQ-9 Depression Total Score: 4 04/12/2019 7:03 AM CDT documented as of this encounter Care Teams Animal Pathologist Relationship Specialty Start Date End Date Jaiden Holcomb PCP - General Internal Medicine 02/13/2010/03 MD Jayesh [address] [facility] [address] [place] [phone] Chastity Montero MD Dermatology 09/23/14 MD 420 [facility] 98 [place], [place] [address] Johnnie Alcocer MD Surgeon General Surgery 03/23/17 [address] [place], [place] [address] Danni Marcus, [place] Personal Advocate & 01/09/1901/17 Liaison (PAL) Mtkinsey, Ea Complex 04/23/19 Svetlana Osman, Pharmacist Pharmacotherapy 04/23/19 [facility] [address] [place], [place] [phone] Haylie Cheung, Pharmacist Pharmacist 09/11/19 [facility] [address] [place] [phone] Galdino Valdez MD Assigned PCP 11/10/19 05/23/20 [address] [place], [place] [phone] Opal, Assigned Sleep 05/08/20 03/27/21 Kendall Meehan MD Provider [address] [place], [place] [address] Erlinda Barber MD Assigned Neuroscience 05/08/20 01/26/21 420 [facility] 295 Provider [place], [place] [address] Jaiden Holcomb Assigned PCP 05/24/20 MD Jayesh 909 [place], [place] [address] documented as of this encounter
--- OUTSIDE RECORDS SUMMARY | 2022-06-15 12:52 | XMS_ITS | Encounter Summary ---
:1945 Author Organization [place] Address [address] [place] [address] Care Team Providers Name Role Phone Chastity Montero MD Unavailable [phone] Johnnie Alcocer MD Unavailable Danni Marcus RN Unavailable Unavailable Mtm, Ea Complex Unavailable Unavailable Svetlana Osman [facility] Unavailable [phone] Haylie Cheung [facility] Unavailable [phone] Galdino Valdez MD Unavailable Jaiden Holcomb MD Primary Care Provider Kendall Joseph MD Unavailable Erlinda Barber MD Unavailable aJiden Holcomb MD Unavailable Encounter Details Date Type Department Care Team Description 05/05/2020 [facility] Loyd John [facility] Mahamed Miranda MD osteomyelitis, Critical access hospital5 [facility] unspecified s [facility] [address] INFECTIOUS (H) [place], [place] [facility] [address] [place], [place] [address]AN [facility] [phone] [place] [id number] Social History Tobacco Use Types Packs/Day Years [...] this encounter Miscellaneous Notes Telephone Encounter - Historical Provider - 05/28/2020 10:32 AM CST Date: 06/09/2020 Status: [facility] Time: 11:00 AM Length: 30 Visit Type: OFFICE VISIT [[id number]] Copay: $0.00 Provider: Ruth John MD CULTURAL WORKER SUPERVISOR Telephone Encounter - Ethel Ward CMA - 05/28/2020 9:[address] Hameed: Continue until f/up with Dr. John. Initial rec was for 4-6 weeks of antibiotics. Looks like she is still in that time period Please call and schedule in clinic visit with Dr John 06/09/20 CULTURAL WORKER SUPERVISOR Telephone Encounter - Ethel Ward CMA - 05/27/2020 3:[address] John's not to f/u 3-4 week however provider is not back in clinic until 06/09/20. Labs ar WNL Options are: F/u with another provider Extend iv abx until 06/09/20 End 06/02/20 and f/u with Dr John on 06/09/20 Sent to covering provider to assess. CULTURAL WORKER SUPERVISOR Telephone Encounter - Araceli Major RN - 05/08/2020 8:49 AM CDT [employer] calling, I informed that the pt is starting the infusion with [facility]. Telephone Encounter - Ethel Ward CMA - 05/07/2020 3:36 PM CDT [facility] pilot plant supervisor reran the tested med quote and it was $10 associate property manager. Pt confirmed to start. Informed [facility]. They will call [employer] to start. Telephone Encounter - Ethel Ward CMA - 05/07/2020 11:10 AM CDT Maggie from [facility] called informing pt is in [facility] insurance gap currently. Her associate property manager quote for unasyn is $111.39. Informed pt and her home nurse was present, they were unhappy and confused of the cost of treatment.They will call [facility] to clarify and inform us if pt will be going with outpatient or home infusion. [phone] Addendum Note - Araceli Major RN - 05/05/2020 1:17 PM CDT Addendum Note by Araceli Major RN at 05/05/2020 1:17 PM Author: Araceli Major RN Service: -- Author Type: Registered Nurse Filed: 05/05/2020 1:17 PM Encounter Date: 05/05/2020 Status: Signed Resistor Tester: Araceli Major RN (Registered Nurse) Addended by: ARACELI MAJOR on: 05/05/2020 01:17 PM Modules accepted: Orders Telephone Encounter - Araceli Major RN - 05/05/2020 1:01 PM CDT Orders placed. I called and scheduled the pt for a PICC placement 05/07 @ 2:30 arrive 2:15 at [place]. Pt informed. I called [facility] for them to perform a benefit investigation on the abx. Theywill call me back with that information and I will contact the pt. Telephone Encounter - Ruth John MD - 05/05/2020 11:58 AM CDT MRI reviewed. Most likely has Left IT osteomyelitis. Based on cultures, IV Unasyn for 4-6 weeks through a PICC line with weeklty CBC/Diff, BMP, CRP. ID clinic follow in 3-4 weeks from initiation of therapy with Unasyn. The patient was called and the above plan was discussed with her. She is on board. Again this is NOT going to resolve without weight loss. Rafa John MD documented in this encounter Plan of Treatment Upcoming Encounters Date Type Specialty Care Team Description 11/15/2022 Virtual Visit Haylie Wakefield, [facility] [address] [facility] [place] [address] (Wo rk) 11/15/2022 Virtual Visit [place] [address] [place] [address] [place] [address] (Wo rk) 03/03/2023 Virtual Visit Neurology Erlinda Barber MD [address] [facility] 295 [place], [place] [address] (Wo rk) documented as of this encounter Visit Diagnoses Diagnosis Other chronic osteomyelitis, unspecified site (H) documented in this encounter Additional Health Concerns Assessment Noted Time PHQ-9 Depression Total Score: 4 04/12/2019 7:03 AM CDT documented as of this encounter Care Teams Box Estimator Relationship Specialty Start Date End Date Jaiden Holcomb PCP - General Internal Medicine 02/13/2010/03 MD Jayesh [address] [facility] [place] [phone] Chastity Montero MD Dermatology 09/23/[address] [place] [address] 98 [place], [place] [address] Johnnie Alcocer MD Surgeon General Surgery 03/23/[address] [place], [place] [address] Danni Marcus, CHANDLER Personal Advocate & 01/09/1901/17 Liaison (PAL) Mtkinsey, Ea Complex 04/23/19 Svetlana sOman, Pharmacist Pharmacotherapy 04/23/19 [facility] [address] [place], [place] [phone] Haylie Cheung, Pharmacist Pharmacist 09/11/19 [facility] [address] [place] [phone] Galdino Valdez MD Assigned PCP 11/10/19 05/23/20 [address] [place], [place] [phone] Opal, Assigned Sleep 05/08/20 03/27/21 Kendall Meehan MD Provider [address] [place] [address] Erlinda Barber MD Assigned Neuroscience 05/08/20 01/26/21 420 [facility] 295 [place] [address] Jaiden Holcomb Assigned PCP 05/24/20 MD Jayesh 909 [place] [address] documented as of this encounter
--- OUTSIDE RECORDS SUMMARY | 2022-06-15 12:52 | XMS_ITS | Encounter Summary ---
:1945 Author Organization [place] Address [address] [place] [address] Care Team Providers Name Role Phone Chastity Montero MD Unavailable [phone] Johnnie Alcocer MD Unavailable Danni Marcus RN Unavailable Unavailable Mtm, Ea Complex Unavailable Unavailable Svetlana Osman [facility] Unavailable [phone] Haylie Cheung [facility] Unavailable [phone] Galdino Valdez MD Unavailable Jaiden Holcomb MD Primary Care Provider Kendall Joseph MD Unavailable Erlinda Barber MD Unavailable Jaiden Holcomb MD Unavailable Encounter Details Date Type Department Care Team Description 04/24/2020 [facility] V[facility] Center MD Amari [place] [address] [facility] 2945 [facility] [address] [place] [address] [place] [address] [place], [place] [phone] (Wo rk) [address] [phone] Social History Tobacco Use Types Packs/Day Years [...] Visit Pharm D Haylie Cheung, [facility] [address] [facility] [place] [address] (Wo rk) 11/15/2022 Virtual Visit [place] [address] [place] [address] [place] [phone] (Wo rk) 03/03/2023 Virtual Visit Neurology Erlinda Barber MD 420 [facility] 295 [place] [address] (Wo rk) documented as of this encounter Visit Diagnoses Not on filedocumented in this encounter Additional Health Concerns Assessment Noted Time PHQ-9 Depression Total Score: 4 04/12/2019 7:03 AM CDT documented as of this encounter Care Teams Instructor Product Inspection Relationship Specialty Start Date End Date Jaiden Holcomb PCP - General Internal Medicine 02/13/2010/03 MD Jayesh [address] [facility] [address] [place], [place] [phone] Chastity Montero MD Dermatology 09/23/14 420 [facility] 98 [place] [address] Johnnie Alcocer MD Surgeon General Surgery 03/23/17 [address] [facility] 300 [place], [place] [phone] Danni Marcus, CHANDLER Personal Advocate & 01/09/1901/17 Liaison (PAL) Fernando, Ea Complex 04/23/19 Svetlana Osman, Pharmacist Pharmacotherapy 04/23/19 [facility] [address] [facility] [place] [address] Haylie Cheung, Pharmacist Pharmacist 09/11/19 [facility] [address] [place], [place] [phone] Galdino Valdez MD Assigned PCP 11/10/19 05/23/20 [address] [place], [place] [phone] Opal, Assigned Sleep 05/08/20 03/27/21 Kendall Meehan MD Provider [address] [place], [place] [phone] Erlinda Barber MD Assigned Neuroscience 05/08/20 01/26/21 [address] [facility] [address] [place] [address] Jaiden Holcomb Assigned PCP 05/24/20 MD Jayesh 909 [place] [address] documented as of this encounter
--- OUTSIDE RECORDS SUMMARY | 2022-06-15 12:52 | XMS_ITS | Encounter Summary ---
:1945 Author Organization [facility] Address [address] [place] [address] Care Team Providers Name Role Phone Chastity Montero MD Unavailable [phone] Johnnie Alcocer MD Unavailable Danni Marcus RN Unavailable Unavailable Mtm, Ea Complex Unavailable Unavailable [facility] Unavailable [phone] Haylie Cheung [facility] Unavailable [phone] Galdino Valdez MD Unavailable Jaiden Holcomb MD Primary Care Provider [phone] Encounter Details Date Type Department Care Team Description 05/04/2020 Hospital Encounter [facility] Kajal Huggins Pressure injury of left ischium, stage 4 (H); [facility] MD Amari Leg swelling; [address] [facility] Chronic osteomyelitis, pelvi s, left (H); [place], [place] [address] Morbid obesity with BMI of 50.0-59.9, ad ult (H) [address] [place], [place] [phone] [address] Social History Tobacco Use Types Packs/Day Years [...] Vitamins-Minerals mouth 2 times daily (PRESERVISION/LUTEIN) CAPS [employer]-3 Fatty Acids (FISH Take 1 g by mouth 0 OIL PO) daily Dqle-rzp-atjtcjg Probiotic Product Take 1 capsule by 0 [...] (FEROSUL) TAKE 1 TABLET(325 100 tablet 3 10/05/2020 325 (65 Fe) MG MG) BY [...] Apply topically 90 g 11 0 03/16/2021 122426 UNIT/GM external daily as needed creamIndications: (irritation) Dermatitis nystatin (NYSTOP) 168828 APPLY TOPICALLY TO 180 g 8 12/21/2020 [...] WITHIN [facility] [address] [facility] [address] [place], [place] [phone] (Wo rk) 11/15/2022 Virtual Visit IM/Peds Yane Barraza MD [address] [facility] [address] [place], [place] [phone] (Wo rk) 03/03/2023 Virtual Visit Neurology Erlinda Barber MD [address] [facility] 295 [place] [address] (Wo rk) documented as of this encounter Procedures Procedure Name Priority Date/Time Associated Diagnosis Comme nts MR PELVIS Routine 05/04/2020 5:33 PM Pressure injury of Res ults for this (INTRAPELVIC CDT left ischium, stage procedur e are in ORGANS) W/O & W 4 (H) the results CONTRAST Leg swelling section. Chronic osteomyelitis, pelvis, left (H) Morbid obesity with BMI of 50.0-59.9, adult (H) Body mass index (BMI) 50.0-59.9, adult (H) documented in this encounter Results MR Pelvis (Intrapelvic Organs) wo&w Contrast (05/04/2020 5:33 PM CDT) Anatomical Region Laterality Modality Abdomen/Pelvis, SUBRAD MR BODY, UMP MR BODY, RAD MR Other Specimen (Source) Anatomical Location Collection Method / Collectio n Time Received Time / Laterality Volume Impressions 05/05/2020 9:36 AM CDT 1. ??Deep decubitus ulceration along the left ischial tuberosity with surrounding granulation tissue combined with underlying inflammation or infection. The ulcer comes in close contact with the ischial tuberosity which shows underlying bone marrow edema and enhancement. Early/mild osteomyeliti s is of concern, noting that reactive bone marrow edema could also potentially cause this appearance. No amie cortical destructive change or underlying abscess. Findings are similar when compared to . ? Narrative 05/05/2020 9:36 AM CDT EXAM: MRI PELVIS WITHOUT AND WITH IV CONTRAST LOCATION: [facility] DATE/TIME: 05/04/2020 5:33 PM INDICATION: Nonhealing ulceration with s uspected osteomyelitis left IT. COMPARISON: 05/24/2019 MRI. TECHNIQUE: Routine MRI pelvis without an d with IV contrast. Axial, sagittal, and coronal high-resolution T2 and post gadolinium T1 with fat saturation. CONTRAST: Gadavist 10. FINDINGS: There is a deep decubitus ulce ration along the left ischial tuberosity with surrounding granulation tissue, soft tissue enhancement and inflammation. The underlying left ischial tuberosity shows focal bone marrow edema enhancement with equivocal T1 signal changes. There is no rim-enhancing fluid collection or abscess. There is associated tendinosis and chronic tearing of the left proximal hamstring tendons. The remaining bones of the pelvis show n o acute fracture or abnormal enhancement on postcontrast sequences. There are degenerative changes in the lo wer lumbar spine. Intrapelvic contents show no free fluid. Large cervical nabothian cyst. Procedure Note Mike Gomez MD - 12/24/2020 EXAM: MRI PELVIS WITHOUT AND WITH IV CON TRAST LOCATION: [facility] DATE/TIME: 05/04/2020 5:33 PM INDICATION: Nonhealing ulceration with s uspected osteomyelitis left IT. COMPARISON: 05/24/2019 MRI. TECHNIQUE: Routine MRI pelvis without an d with IV contrast. Axial, sagittal, and coronal high-resolution T2 and post gadolinium T1 with fat saturation. CONTRAST: Gadavist 10. FINDINGS: There is a deep decubitus ulce ration along the left ischial tuberosity with surrounding granulation tissue, soft tissue enhancement and inflammation. The underlying left ischial tuberosity shows focal bone marrow edema enhancement with equivocal T1 signal changes. There is no rim-enhancing fluid collection or abscess. There is associated tendinosis and chronic tearing of the left proximal hamstring tendons. The remaining bones of the pelvis show n o acute fracture or abnormal enhancement on postcontrast sequences. There are degenerative changes in the lo wer lumbar spine. Intrapelvic contents show no free fluid. Large cervical nabothian cyst. IMPRESSION: 1. Deep decubitus ulceration along the l eft ischial tuberosity with surrounding granulation tissue combined with underlying inflammation or infection. The ulcer comes in close contact with the ischial tuberosity which shows underlying bone marrow edema and enhancement. Early/mild osteomyeliti s is of concern, noting that reactive bone marrow edema could also potentially cause this appearance. No amie cortical destructive change or underlying abscess. Findings are similar when compared to 05/24/2019. Kajal Huggins MD IMG MRI ORDERABLES documented in this encounter Visit Diagnoses Diagnosis Pressure injury of left ischium, stage 4 (H) Leg swelling Swelling of limb Chronic osteomyelitis, pelvis, left (H) Morbid obesity with BMI of 50.0-59.9, ad ult (H) documented in this encounter Additional Health Concerns Assessment Noted Time PHQ-9 Depression Total Score: 4 04/12/2019 7:03 AM CDT documented as of this encounter Care Teams Social Media Marketing Specialist Relationship Specialty Start Date End Date Jaiden Holcomb PCP - General Internal Medicine 02/13/2010/03 MD Jayesh [address] [place] [address] Chastity Montero MD Dermatology 09/23/14 MD Martha [address] [facility] 98 [place] [address] Johnnie Alcocer MD Surgeon General Surgery 03/23/[address] [place], [place] [phone] Danni Marcus, CHANDLER Personal Advocate & 01/09/1901/17 Liaison (PAL) Fernando, Ea Complex 04/23/19 Svetlana Osman Pharmacist Pharmacotherapy 04/23/19 [facility] [address] [place] [address] Haylie Cheung, Pharmacist Pharmacist 09/11/19 [facility] [address] [place] [address] Galdino Valdez MD Assigned PCP 11/10/19 05/23/[address] [place] [address] documented as of this encounter
--- OUTSIDE RECORDS SUMMARY | 2022-06-15 12:52 | XMS_ITS | Encounter Summary ---
:1945 Author Organization [facility] Address [address] [place] [address] Care Team Providers Name Role Phone Chastity Montero MD Unavailable [phone] Johnnie Alcocer MD Unavailable Danni Marcus RN Unavailable Unavailable Mtm, Ea Complex Unavailable Unavailable Svetlana Osman [facility] Unavailable [phone] Haylie Cheung [facility] Unavailable [phone] Galdino Valdez MD Unavailable Jaiden Holcomb MD Primary Care Provider [phone] Kendall Joseph MD Unavailable Erlinda Barber MD Unavailable Jaiden Holcomb MD Unavailable Reason for Visit Reason Onset Date Comments Appointment 04/30/2020 Encounter Details Date Type Department Care Team Description 04/30/2020 Telephone [facility] Wilbur Holcomb Appointment Yarelis Mcconnell MD [facility] [address] [address] [place] [address] [phone] Social History Tobacco Use Types Packs/Day Years [...] contact Unable to assess 06/15/2020 12:38 PM PULVERIZER FEEDER with someone who was confirmed or suspected to have Coronavirus / COVID-19? documented as of this encounter Miscellaneous Notes Telephone Encounter - Gisele Reed - 06/17/2020 11:19 AM CST Patient is scheduled for 08/03/2020 via Video visit Thank you Luis [employer] Senior Manager - Complex Care Team ERIZER FEEDER Telephone Encounter - Gisele Reed - 06/16/2020 2:27 PM CST Sent mychart to patient. Thank you Luis E [employer] Senior Manager - Complex Care Team ERIZER FEEDER Telephone Encounter - Danni Marcus, CHANDLER - 04/30/2020 3:43 PM CDT Please schedule a video visit in three months-Jul. No MTM. Thank you, Ashli Marcus RN documented in this encounter Plan of Treatment Upcoming Encounters Date Type Specialty Care Team Description 11/15/2022 Virtual Visit Pharm Haylie Gonzalez, [facility] [address] [facility] [place] [id number] (Wo rk) 11/15/2022 Virtual Visit [place] [address] [place] [address] [place] [phone] (Wo rk) 03/03/2023 Virtual Visit Neurology Erlinda Barber MD 420 [facility] 295 [place], [place] [address] (Wo rk) documented as of this encounter Visit Diagnoses Not on filedocumented in this encounter Additional Health Concerns Assessment Noted Time PHQ-9 Depression Total Score: 4 04/12/2019 7:03 AM CDT documented as of this encounter Care Teams Train Brake Operator Relationship Specialty Start Date End Date Jaiden Holcomb PCP - General Internal Medicine 02/13/2010/03 MD Jayesh [address] [place] [address] [place] [address] Chastity Montero MD Dermatology 09/23/14 [place] [address] [facility] 98 [place], [place] [address] Johnnie Alcocer MD Surgeon General Surgery 03/23/17 [address] [facility] 300 [place], [place] [address] Danni Marcus, RN Personal Advocate & 01/09/1901/17 Liaison (PAL) Kyle King Complex 04/23/19 S[facility]ana Osman, Pharmacist Pharmacotherapy 04/23/19 [facility] [address] [place] [address] Haylie Cheung, Pharmacist Pharmacist 09/11/19 [facility] [address] [place] [place], [place] [phone] Galdino Valdez MD Assigned PCP 11/10/19 05/23/20 [address] [place], [place] [phone] Opal, Assigned Sleep 05/08/20 03/27/21 Kendall Meehan MD Provider [address] [facility] 106 [place], [place] [phone] Erlinda Barber MD Assigned Neuroscience 05/08/20 01/26/21 420 [facility] 295 [place] [address] Jaiden Holcomb Assigned PCP 05/24/20 MD Jayesh 909 [place] [address] documented as of this encounter
--- OUTSIDE RECORDS SUMMARY | 2022-06-15 12:52 | XMS_ITS | Encounter Summary ---
:1945 Author Organization [facility] Address [address] [place] [address]. [place] [address] Care Team Providers Name Role Phone Chastity Montero MD Unavailable [phone] Johnnie Alcocer MD Unavailable Danni Marcus RN Unavailable Unavailable Mtm, Ea Complex Unavailable Unavailable Svetlana Osman [facility] Unavailable [phone] Haylie Cheung [facility] Unavailable [phone] Galdino Valdez MD Unavailable Jaiden Holcomb MD Primary Care Provider [phone] Kendall Joseph MD Unavailable Erlinda Barber MD Unavailable Encounter Details Date Type Department Care Team Description 05/06/2020 Medical Correspondence [facility] Scan, EPISODE DETAIL Health Info Mgmt Non-Provider REPORT TUSHAR PARKER [facility] [address] [place] [address] Social History Tobacco Use Types Packs/Day [...] 05/03/2021 organizations such as adventist groups, unions, fraRebyoo or athletic groups, or school groups? How [...] Pharm D Haylie Cheung, [facility] [address] [place] [address] [place] [id number] (Wo rk) 11/15/2022 Virtual Visit IM/Peds Yane Barraza MD [address] [place] [address] [place] [phone] (Wo rk) 03/03/2023 Virtual Visit Neurology Erlinda Barber MD [address] [facility] 295 [place] [address] (Wo rk) documented as of this encounter Visit Diagnoses Not on filedocumented in this encounter Additional Health Concerns Assessment Noted Time PHQ-9 Depression Total Score: 4 04/12/2019 7:03 AM CDT documented as of this encounter Care Teams Upsetter Relationship Specialty Start Date End Date Jaiden Holcomb PCP - General Internal Medicine 02/13/2010/03 MD Jayesh [address] [place] [address] [place] [phone] Chastity Montero MD Dermatology 09/23/14 [address] [facility] [address] [place], [place] [phone] Johnnie Alcocer MD Surgeon General Surgery 03/23/[address] [place], [place] [address] Danni Marcus, CHANDLER Personal Advocate & 01/09/1901/17 Liaison (PAL) [place], Ea Complex 04/23/19 Svetlana Osman, Pharmacist Pharmacotherapy 04/23/19 [facility] [address] [place], [place] [phone] Haylie Cheung, Pharmacist Pharmacist 09/11/19 [facility] [address] [place], [place] [phone] Galdino Valdez MD Assigned PCP 11/10/19 05/23/20 [address] [place], [place] [phone] Opal, Assigned Sleep 05/08/20 03/27/21 Kendall Meehan MD Provider [address] [place] [address] [place], [place] [address] Erlinda Barber MD Assigned Neuroscience 05/08/20 01/26/21 [address] [facility] [address] Provider [place], [place] [phone] documented as of this encounter
--- OUTSIDE RECORDS SUMMARY | 2022-06-15 12:52 | XMS_ITS | Encounter Summary ---
:1945 Author Organization [facility] Address [address] [place] [address] Care Team Providers Name Role Phone Chastity Montero MD Unavailable [phone] Johnnie Alcocer MD Unavailable Danni Marcus RN Unavailable Unavailable Mtm, Ea Complex Unavailable Unavailable Svetlana Osman [facility] Unavailable [phone] Haylie Cheung [facility] Unavailable [phone] Galdino Valdez MD Unavailable Jaiden Holcomb MD Primary Care Provider [phone] Reason for Referral Consultation (Routine) - Closed Specialty Diagnoses / Procedures Referred By Contact Refer red To Contact Diagnoses Allergic reaction, sequela Haylie Cheung, [facility] [address] [place] [address] Referral ID Status Reason Start Date Expiration Date Visits Requ ested Visits Authorized [id number] Closed 05/06/2020 05/06/2021 1 1 Reason for Visit Reason Onset Date Comments Allergies 05/06/2020 Allergy testing-poss ible allergy to Shigrix Encounter Details Date Type Department Care Team Description 05/06/2020 Telephone [facility] Haylie Cheung (Allergy Clinic Yarelis Rojas [facility] testing-possible [address] [place] allergy to Shigrix) [facility] [place] [address] [address] [place] [address] [phone] Social History Tobacco Use Types Packs/Day Years [...] encounter Miscellaneous Notes Telephone Encounter - Danni Marcus RN - 05/06/2020 3:17 PM CDT Patient is willing to see the miter sawyer Dr. Silva. Referral placed. My chart message sent to patient with name and phone number to call to set up an appointment. Ashli Marcus RN Telephone Encounter - Danni Marcus RN - 05/06/2020 2:50 PM CDT Copied from routing message-She had multiple significant allergens when she underwent allergy testing with Dr Schroeder in 2001. ??I am not aware of the ingredients in the current vaccine and have not seen the patient for several years. ??The safest option would for her to do a consult with Dr Silva, the miter sawyer at the [facility], to review the ingredients of the vaccine to see if it is safe for her. Telephone Encounter - Haylie Cheung RP - 05/06/2020 11:29 AM CDT Spoke with patient. She reports that she had only spoken to Dr. Montero about the shingles vaccine.She only saw Dr. Schroeder for the testing and had the follow-up with Dr. Montero. Patient does not want to contact Dr. Schroeder as she feels Dr. Schroeder is not aware of the new updates since the 2001 patch testing. Patient is persistent I reach out back to Dr. Montero. Patient is aware a follow-up appt may be suggested but prefer I reach back out to Dr. Montero instead. fyi to primary care team: PICC line placement tomorrow. Will be started on IV abx 4-6 weeks. She reports no follow-up with ID scheduled. I encouraged patient to contact ID if no follow- up set. She is agreeable. Haylie Cheung, JosephD Medication Therapy Management Pharmacist Pager#: [phone] Telephone Encounter - Haylie Cheung RPH - 05/06/2020 11:26 AM CDT ----- Message from Chastity Monetro MD sent at 05/04/2020 7:59 AM CDT ----- Dr Schroeder did the patch testing. It would be best if the patient contacts Dr Schroeder at [facility] who did the original testing. ----- Message ----- From: Haylie Cheung Sanjuanita Sent: 04/30/2020 2:31 PM CDT To: Chastity Montero MD, Ea Sb5 [facility] Dr. Montero, I am with the patient's primary care team. We had just met with the patient about discussed Shingrixvaccine. However, she reports that she was told not to get Zostavax in the past. She asked that we reach out to you specifically because she thought it was after some allergy testing that either yourself or someone in your department has recommended this. We are wondering if patient can proceed with the Shingrix vaccine. Appreciate your time and review. Thank you, Complex care team documented in this encounter Plan of Treatment Upcoming Encounters Date Type Specialty Care Team Description 11/15/2022 Virtual Visit Pharm D Haylie Cheung, [facility] [address] [facility] [address] [place], [place] [phone] (Wo rk) 11/15/2022 Virtual Visit IM/Peds Yane Barraza MD [address] [facility] [place] [phone] (Wo rk) 03/03/2023 Virtual Visit Neurology Erlinda Barber MD 420 [facility] 295 [place], [place] [address] (Wo rk) Scheduled Referrals Name Type Priority Associated Diagnoses Order S chedule ALLERGY/ASTHMA ADULT Referral Routine Allergic reaction, O rdered: 05/06/2020 REFERRAL sequela documented as of this encounter Visit Diagnoses Diagnosis Allergic reaction, sequela - Primary documented in this encounter Additional Health Concerns Assessment Noted Time PHQ-9 Depression Total Score: 4 04/12/2019 7:03 AM CDT documented as of this encounter Care Teams Ticket Printer And Tagger Relationship Specialty Start Date End Date Jaiden Holcomb PCP - General Internal Medicine 02/13/2010/03 MD Jayesh [address] [facility] [place] [phone] Chastity Montero MD Dermatology 09/23/14 MD Martha 420 [facility] 98 [place] [address] Johnnie Alcocer MD Surgeon General Surgery 03/23/[address] [place], [place] [address] Danni Marcus, CHANDLER Personal Advocate & 01/09/1901/17 Liaison (PAL) Fernando, Ea Complex 04/23/19 Svetlana Osman Pharmacist Pharmacotherapy 04/23/19 Era [facility] [address] [place] [address] Haylie Cheung, Pharmacist Pharmacist 09/11/19 [facility] [address] [place], [place] [phone] Galdino Valdez MD Assigned PCP 11/10/19 05/23/20 [address] [place], [place] [phone] documented as of this encounter
--- OUTSIDE RECORDS SUMMARY | 2022-06-15 12:53 | XMS_ITS | Encounter Summary ---
:1945 Author Organization [facility] Address [address] [place] [address] Care Team Providers Name Role Phone Chastity Montero MD Unavailable [phone] Johnnie Alcocer MD Unavailable Danni Marcus RN Unavailable Unavailable Mtm, Ea Complex Unavailable Unavailable Svetlana Osman [facility] Unavailable [phone] Haylie Cheung [facility] Unavailable [phone] Galdino Valdez MD Unavailable Jaiden Holcomb MD Primary Care Provider [phone] Kendall Joseph MD Unavailable Erlinda Barber MD Unavailable Jaiden Holcomb MD Unavailable [phone] Encounter Details Date Type Department Care Team Description 03/31/2020 Records - [facility] CONVERSION Scan, Non-Provider [...] Cheung, [facility] [address] [facility] [address] [place] [phone] (Wo rk) 11/15/2022 Virtual Visit IM/Peds Yane Barraza MD [address] [place] [address] [place] [phone] (Wo rk) 03/03/2023 Virtual Visit Neurology Erlinda Barber MD [address] [place] [address] 295 [place], [place] [address] (Wo rk) documented as of this encounter Visit Diagnoses Not on filedocumented in this encounter Additional Health Concerns Assessment Noted Time PHQ-9 Depression Total Score: 4 04/12/2019 7:03 AM CDT documented as of this encounter Care Teams Screw Machine Operator Single Spindle Relationship Specialty Start Date End Date Jaiden Holcomb PCP - General Internal Medicine 02/13/2010/03 MD Jayesh [address] [facility] [place] [phone] Chastity Montero MD Dermatology 09/23/[address] [place] [address] [facility] [address] [place], [place] [phone] Johnnie Alcocer MD Surgeon General Surgery 03/23/[address] [place] [address] Danni Marcus, CHANDLER Personal Advocate & 01/09/1901/17 Liaison (PAL) Fernando, Ea Complex 04/23/19 Svetlana Osman, Pharmacist Pharmacotherapy 04/23/19 [facility] [address] [facility] [address] [place], [place] [phone] Haylie Cheung, Pharmacist Pharmacist 09/11/19 [facility] [address] [facility] [address] [place], [place] [phone] Galdino Valdez MD Assigned PCP 11/10/19 05/23/20 [address] [place], [place] [phone] Opal, Assigned Sleep 05/08/20 03/27/21 Kendall Meehan MD Provider [address] [place], [place] [address] Erlinda Barber MD Assigned Neuroscience 05/08/20 01/26/21 420 [facility] 295 Provider [place], [place] [phone] Jaiden Holcomb Assigned PCP 05/24/20 MD Jayesh 909 [place] [address] documented as of this encounter
--- OUTSIDE RECORDS SUMMARY | 2022-06-15 12:53 | XMS_ITS | Encounter Summary ---
:1945 Author Organization [place] Address [address] [place] [address] Care Team Providers Name Role Phone Chastity Montero MD Unavailable [phone] Johnnie Alcocer MD Unavailable Danni Marcus RN Unavailable Unavailable Mtm, Ea Complex Unavailable Unavailable Svetlana Osman [facility] Unavailable [phone] Haylie Cheung [facility] Unavailable [phone] Galdino Valdez MD Unavailable Jaiden Holcomb MD Primary Care Provider [phone] Kendall Joseph MD Unavailable Erlinda Barber MD Unavailable Jaiden Holcomb MD Unavailable [phone] Encounter Details Date Type Department Care Team Description 04/10/2020 Ambulatory - [facility] Thyromegal y; [facility] Feeding dif ficulties; Laboratory Wound healing, delayed; [address] [facility] Pressu re injury of left ischium, stage 4 (H) [address] [place] [address] Social History Tobacco Use Types [...] Haylie Cheung, [facility] [address] [facility] [place] [address] (Lena max) 11/15/2022 Virtual Visit IM/Peds Yane Barraza MD [address] [facility] [place] [address] (Wo rk) 03/03/2023 Virtual Visit Neurology Erlinda Barber MD [address] [facility] EM[facility]PART[facility] [address] [place] [address] (Wo rk) documented as of this encounter Procedures Procedure Name Priority Date/Time Associated Comments Diagnosis CBC WITH PLATELETS AND Routine 04/10/2020 1:49 PM Results for this DIFFERENTIAL CDT procedure are i n the results section. THYROTROPIN RECEPTOR Routine 04/10/2020 1:49 PM R esults for this ANTIBODY CDT procedure are i n the results section. THYROID PEROXIDASE Routine 04/10/2020 1:49 PM Res ults for this ANTIBODY CDT procedure are i n the results section. T4 FREE Routine 04/10/2020 1:49 PM Results f or this CDT procedure are i n the results section. T3 FREE Routine 04/10/2020 1:49 PM Results f or this CDT procedure are i n the results section. ERYTHROCYTE Routine 04/10/2020 1:49 PM Results f or this SEDIMENTATION RATE CDT procedure are in AUTO the results section. CRP INFLAMMATION Routine 04/10/2020 1:49 PM Resul ts for this CDT procedure are i n the results section. ANTI THYROGLOBULIN Routine 04/10/2020 1:49 PM Res ults for this ANTIBODY CDT procedure are i n the results section. documented in this encounter Results (ABNORMAL) CBC WITH PLATELETS AND DIFFERENTIAL (04/10/2020 1:49 PM CDT) [facility] Time Signature WBC 7.4 4.0 - 11.0 04/10/2020 [facility] thou/uL 2:31 PM CDT RBC Count 4.59 3.80 - 04/10/2020 [facility] 5.40 2:31 PM CDT mill/uL Hemoglobin 14.6 12.0 - 04/10/2020 [facility] 16.0 g/dL 2:31 PM CDT Hematocrit 42.7 35.0 - 04/10/2020 [facility] 47.0 % 2:31 PM CDT MCV 93 80 - 100 04/10/2020 [facility] fL 2:31 PM CDT MCH 31.7 27.0 - 04/10/2020 [facility] 34.0 pg 2:31 PM CDT MCHC 34.1 32.0 - 04/10/2020 [facility] 36.0 g/dL 2:31 PM CDT RDW 11.0 11.0 - 04/10/2020 [facility] 14.5 % 2:31 PM CDT Platelet Count 298 140 - 440 04/10/2020 [facility] thou/uL 2:31 PM CDT Mean Platelet 7.7 7.0 - 10.0 04/10/2020 [facility] Volume fL 2:31 PM CDT % Neutrophils 69 50 - 70 % 04/10/2020 [facility] 2:31 PM CDT % Lymphocytes 19 (L) 20 - 40 % 04/10/2020 [facility] 2:31 PM CDT % Monocytes 8 2 - 10 % 04/10/2020 [facility] 2:31 PM CDT % Eosinophils 4 0 - 6 % 04/10/2020 [facility] 2:31 PM CDT % Basophils 1 0 - 2 % 04/10/2020 [facility] 2:31 PM CDT Absolute 5.1 2.0 - 7.7 04/10/2020 [facility] Neutrophils thou/uL 2:31 PM CDT Absolute 1.4 0.8 - 4.4 04/10/2020 [facility] Lymphocytes thou/uL 2:31 PM CDT Absolute 0.6 0.0 - 0.9 04/10/2020 [facility] Monocytes thou/uL 2:31 PM CDT Eosinophils 0.3 0.0 - 0.4 04/10/2020 [facility] Absolute thou/uL 2:31 PM CDT Absolute 0.0 0.0 - 0.2 04/10/2020 [facility] Basophils thou/uL 2:31 PM CDT Specimen Anatomical Collection Method / Collection Time Recei yudy Time (Source) Location / Volume Laterality Blood specimen Venipuncture / 04/10/2020 1:49 04/10/20 20 1:49 (specimen) Unknown PM CDT PM CDT Kajal Huggins MD LAB - BLOOD ORDERABLES Performing Organization Address City/[facility] Phon e Number [facility] [place] [address] [facility] [facility] [address] [place] [address] (ABNORMAL) Erythrocyte sedimentation rate auto (04/10/2020 1:49 PM CDT) [facility] gist Method Time Signature Erythrocyte 48 (H) 0 - 20 04/10/2020 [facility] Sedimentation Rate mm/hr 3:10 PM CDT Specimen Anatomical Collection Method / Collection Time Recei yudy Time (Source) Location / Volume Laterality Blood specimen Venipuncture / 04/10/2020 1:49 04/10/20 20 1:49 (specimen) Unknown PM CDT PM CDT Kajal Huggins MD LAB - BLOOD ORDERABLES Performing Organization Address City/[facility]/ZIP Code Phon e Number [facility] [place] [address] 3[address] [facility] [address] [facility], [address] [place] [address] (ABNORMAL) CRP inflammation (04/10/2020 1:49 PM CDT) P athologist Signature CRP 3.6 (H) 0.0 - 0.8 04/10/2020 [facility] mg/dL 8:22 PM CDT [facility] Specimen Anatomical Collection Method / Collection Time Recei yudy Time (Source) Location / Volume Laterality Blood specimen Venipuncture / 04/10/2020 1:49 04/10/20 20 6:24 (specimen) Unknown PM CDT PM CDT Braxton Lala MD LAB - BLOOD ORDERABLES Performing Organization Address City/[facility]/ZIP Code Phon [place] [address] [id number] [place] [address] LABORATORY Anti thyroglobulin antibody (04/10/2020 1:49 PM CDT) Patholo gist Method Time Signature Thyroglobulin <0.9 0.0 - 4.0 04/12/2020 [facility] Antibody IU/mL 8:18 AM CDT LABORATORIES Comment: INTERPRETIVE INFORMATION: Thyroglobulin Antibody ? A value of 4.0 IU/mL or less indicates a negative result for thyroglobulin antibodies. The Thyroglobulin Antibody assay is bein g performed using the Aylin Marion Access DxI method. Performed By: [facility] [address] [place] [address] Project Controls Specialist: Bonny Shannon MD Specimen Anatomical Collection Method / Collection Time Recei yudy Time (Source) Location / Volume Laterality Blood specimen Venipuncture / 04/10/2020 1:49 04/12/20 20 3:29 (specimen) Unknown PM CDT AM CDT Braxton Lala MD LAB - BLOOD ORDERABLES Performing Organization Address City/State/ZIP Code Phon e Number [facility] [place], [place] [phone] [address] [facility] [phone] [address] Thyrotropin Receptor Antibody (04/10/2020 1:49 PM CDT) athologist Signature TSH Receptor <0.90 <=1.75 04/13/2020 [facility] Antibody IU/L 2:10 PM CDT LABORATORIES Comment: Performed By: [facility] [address] [place] [address] [employer] Specialist: Bonny Shannon MD Specimen Anatomical Collection Method / Collection Time Recei yudy Time (Source) Location / Volume Laterality Blood specimen Venipuncture / 04/10/2020 1:49 04/12/20 20 8:19 (specimen) Unknown PM CDT AM CDT Braxton Lala MD LAB - IMMUNOLOGY ORDERABLES Performing Organization Address City/[facility]/ZIP [facility] Phon e Number [place] [phone] [address] [facility] [phone] [address] Thyroid peroxidase antibody (04/10/2020 1:49 PM CDT) athologist Signature Thyroid <3.0 0.0 - 5.6 04/14/2020 [facility] Peroxidase Ab IU/mL 12:41 PM CDT [facility] Specimen Anatomical Collection Method / Collection Time Recei yudy Time (Source) Location / Volume Laterality Blood specimen Venipuncture / 04/10/2020 1:49 04/10/20 20 5:50 (specimen) Unknown PM CDT PM CDT Braxton Lala MD LAB - BLOOD ORDERABLES Performing Organization Address City/[facility]/ZIP [facility] Phon e Number [place] [address] [address] [facility] T3 Free (04/10/2020 1:49 PM CDT) athologist Signature T3 Free 2.6 1.9 - 3.9 04/11/2020 [facility] pg/mL 7:59 PM CDT [facility] Specimen Anatomical Collection Method / Collection Time Recei yudy Time (Source) Location / Volume Laterality Blood specimen Venipuncture / 04/10/2020 1:49 04/10/20 20 6:24 (specimen) Unknown PM CDT PM CDT Braxton Lala MD LAB - BLOOD ORDERABLES Performing Organization Address City/[facility]/ZIP [facility] Phon e Number [facility] [place] [address] [address] [facility] T4 free (04/10/2020 1:49 PM CDT) athologist Signature Free T4 1.2 0.7 - 1.8 04/10/2020 [facility] ng/dL 11:58 PM CDT [facility] Specimen Anatomical Collection Method / Collection Time Recei yudy Time (Source) Location / Volume Laterality Blood specimen Venipuncture / 04/10/2020 1:49 04/10/20 20 6:24 (specimen) Unknown PM CDT PM CDT Braxton Lala MD LAB - BLOOD ORDERABLES Performing Organization Address City/[facility] Phon e Number [facility] [place] [address] [address] [facility] documented in this encounter Visit Diagnoses Diagnosis Thyromegaly Goiter, unspecified Feeding difficulties Feeding difficulties and mismanagement Wound healing, delayed Open wound(s) (multiple) of unspecified site(s), complicated Pressure injury of left ischium, stage 4 (H) documented in this encounter Additional Health Concerns Assessment Noted Time PHQ-9 Depression Total Score: 4 04/12/2019 7:03 AM CDT documented as of this encounter Care Teams Cna Relationship Specialty Start Date End Date Jaiden Holcomb PCP - General Internal Medicine 02/13/2010/03 MD Jayesh [address] [facility] [place] [address] Chastity Montero MD Dermatology 09/23/14 [address] [facility] [address] [place], [place] [address] Johnnie Alcocer MD Surgeon General Surgery 03/23/[address] [place], [place] [address] Danni Marcus, CHANDLER Personal Advocate & 01/09/1901/17 Liaison (PAL) Fernando Ea Complex 04/23/19 Svetlana Osman, Pharmacist Pharmacotherapy 04/23/19 [facility] [address] [place] [address] [place], [place] [phone] Haylie Cheung, Pharmacist Pharmacist 09/11/[address] [place], [place] [id number] Galdino Valdez MD Assigned PCP 11/10/19 05/23/20 [address] [place], [place] [id number] Opal, Assigned Sleep 05/08/20 03/27/21 Kendall Meehan MD Provider [address] [place], [place] [address] Erlinda Barber MD Assigned Neuroscience 05/08/20 01/26/21 [address] [facility] [address] Provider [place], [place] [phone] Jaiden oHlcomb Assigned PCP 05/24/20 MD Jayesh 909 [place], [place] [address] documented as of this encounter
--- OUTSIDE RECORDS SUMMARY | 2022-06-15 12:53 | XMS_ITS | Encounter Summary ---
:1945 Author Organization [place] Address [address] [place] [address] Care Team Providers Name Role Phone Chastity Montero MD Unavailable [phone] Johnnie Alcocer MD Unavailable Danni Marcus RN Unavailable Unavailable Mtm, Ea Complex Unavailable Unavailable Svetlana Osman [facility] Unavailable [phone] Haylie Cheung [facility] Unavailable [phone] Galdino Valdez MD Unavailable Jaiden Holcomb MD Primary Care Provider Reason for Visit Reason Comments Medication Refill LEVETIRACETAM 500MG TABLETS Encounter Details Date Type Department Care Team Description 03/30/2020 Refill [facility] Neurology Erlinda Barber MD Medication Refill [address] (LEVETIRACETAM 500MG 3rd Floor [address] ) [place] [address] [phone] Social History Tobacco Use Types Packs/Day Years [...] More than 4 times per year 05/03/2021 voodoo services? Do you belong to any clubs or No 05/03/2021 organizations such as caodaism groups, unions, fraSwivel or athletic groups, or school groups? How [...] been in contact with No / Unsure 03/09/2020 1:15 PM CDT someone who was confirmed or suspected to have Coronavirus / COVID-19? documented as of this encounter Miscellaneous Notes Telephone Encounter - Mari Wells RN - 04/01/2020 1:26 PM CDT LEVETIRACETAM 500MG TABLETS levETIRAcetam (KEPPRA) 500 MG tablet 180 tablet 3 01/24/2020 No Sig - Route: Take 1 tablet (500 mg) by mouth 2 times daily - Oral Sent to pharmacy as: levETIRAcetam 500 MG Oral Tablet (Keppra) Class: E-Prescribe Order: [id number] E-Prescribing Status: Receipt confirmed by pharmacy (01/24/2020 ??9:18 AM CDT) Printout Tracking External Result Report Pharmacy [id number] - [place] - [address] [facility] Mari Wells RN Central Triage Red Flags/Med Refills documented in this encounter Plan of Treatment Upcoming Encounters Date Type Specialty Care Team Description 11/15/2022 Virtual Visit Pharm Haylie Gonzalez, [address] [place] [address] (Wo rk) 11/15/2022 Virtual Visit [place] [address] [place] [address] [place] [address] (Lena max) 03/03/2023 Virtual Visit Neurology Erlinda Barber MD [address] [facility] 295 [place] [address] (Lena max) documented as of this encounter Visit Diagnoses Diagnosis Recurrent seizures (H) 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 documented in this encounter Additional Health Concerns Assessment Noted Time PHQ-9 Depression Total Score: 4 04/12/2019 7:03 AM CDT documented as of this encounter Care Teams Military Science Instructor Relationship Specialty Start Date End Date Jaiden Holcomb PCP - General Internal Medicine 02/13/2010/03 MD Jayesh [address] [facility] [place] [address] Chastity Montero MD Dermatology 09/23/14 MD Martha [address] [facility] 98 [place] [address] Johnnie Alcocer MD Surgeon General Surgery 03/23/17 [address] [facility] [address] [place] [address] Danni Marcus, CHANDLER Personal Advocate & 01/09/1901/17 Liaison (PAL) Fernando, Ea Complex 04/23/19 Svetlana Osman Pharmacist Pharmacotherapy 04/23/19 Era, [facility] [address] [place] [address] Haylie Cheung, Pharmacist Pharmacist 09/11/19 [facility] [address] [place] [address] Galdino Valdez MD Assigned PCP 11/10/19 05/23/20 [address] [place] [address] documented as of this encounter
--- OUTSIDE RECORDS SUMMARY | 2022-06-15 12:53 | XMS_ITS | Encounter Summary ---
:1945 Author Organization [place] Address [address] [place] [address] Care Team Providers Name Role Phone Chastity Montero MD Unavailable [phone] Johnnie Alcocer MD Unavailable Danni Marcus RN Unavailable Unavailable Mtm, Ea Complex Unavailable Unavailable Svetlana Osman [facility] Unavailable [phone] Haylie Cheung [facility] Unavailable [phone] Galdino Valdez MD Unavailable Jaiden Holcomb MD Primary Care Provider Kendall Joseph MD Unavailable Erlinda Barber MD Unavailable Jaiden Holcomb MD Unavailable Encounter Details Date Type Department Care Team Description 04/09/2020 [facility] MD Amari Denniston 29[address] [facility] 2945 [facility] [address] [facility] [address] [place] [address] [place], [place] [phone] (Wo rk) [address] [phone] Social History Tobacco Use Types Packs/Day Years [...] or more drinks on one occasion? Ne daon 05/03/2021 Social Isolation Answer Date Recorded In [...] Cheung, [facility] 14[address] [facility] [place] [address] (Wo rk) 11/15/2022 Virtual Visit [place] [address] [place] [address] [place] [id number] (Wo rk) 03/03/2023 Virtual Visit Neurology Erlinda Barber MD 420 [facility] 295 [place] [address] (Wo rk) documented as of this encounter Visit Diagnoses Not on filedocumented in this encounter Additional Health Concerns Assessment Noted Time PHQ-9 Depression Total Score: 4 04/12/2019 7:03 AM CDT documented as of this encounter Care Teams Fiber Optic Splicer Relationship Specialty Start Date End Date Jaiden Holcomb PCP - General Internal Medicine 02/13/2010/03 MD Jayesh [address] [facility] [address] [place], [place] [id number] Chastity Montero MD Dermatology 09/23/14 [address] [facility] 98 [place] [address] Johnnie Alcocer MD Surgeon General Surgery 03/23/17 [address] [facility] 300 [place], [place] [phone] Danni Marcus, CHANDLER Personal Advocate & 01/09/1901/17 Liaison (PAL) Fernando, Ea Complex 04/23/19 Svetlana Osman, Pharmacist Pharmacotherapy 04/23/19 [facility] [address] [facility] [place] [address] Haylie Cheung, Pharmacist Pharmacist 09/11/19 [facility] [address] [place], [place] [phone] Galdino Valdez MD Assigned PCP 11/10/19 05/23/20 [address] [place], [place] [id number] Opal, Assigned Sleep 05/08/20 03/27/21 Kendall Meehan MD Provider [address] [place], [place] [phone] Erlinda Barber MD Assigned Neuroscience 05/08/20 01/26/[address] [facility] [address] [facility] [address] [place] [address] Jaiden Holcomb Assigned PCP 05/24/20 MD Jayesh 909 [place] [address] documented as of this encounter
--- OUTSIDE RECORDS SUMMARY | 2022-06-15 12:53 | XMS_ITS | Encounter Summary ---
:1945 Author Organization [place] Address [address] [place] [address] Care Team Providers Name Role Phone Chastity Montero MD Unavailable [phone] Johnnie Alcocer MD Unavailable Danni Marcus RN Unavailable Unavailable Mtm, Ea Complex Unavailable Unavailable Svetlana Osman [facility] Unavailable [phone] Haylie Cheung [facility] Unavailable [phone] Galdino Valdez MD Unavailable Jaiden Holcomb MD Primary Care Provider [phone] Kendall Joseph MD Unavailable Erlinda Barber MD Unavailable Jaiden Holcomb MD Unavailable [phone] Reason for Visit Reason Comments Nutrition Counseling Encounter Details Date Type Department Care Team Description 04/08/2020 Office Visit - [facility] Provider, Morbid o besity with BMI of 50.0-59.9, adult (H); [facility] and Historical Nutrition al counseling Bariatrics Care [address] [address] Social History Tobacco Use Types [...] 05/03/2021 organizations such as yarsanism groups, unions, fraSoneter or athletic groups, or school groups? How [...] - - Weight 158.3 kg (349 lb) 04/08/2020 2:00 PM CDT Height 170.2 cm (5' 7) 04/08/2020 2:00 PM CDT Body Mass Index 54.66 04/08/2020 2:00 PM CDT documented in this encounter Progress Notes Aurea Shannon RD - 04/08/2020 2:00 PM CDT Charlette Brush is a 75 y.o. female [...] the test done at a later time. If during the course of the call the physician/provider feels a telephone visit is not appropriate, you will not be charged for this service. Charlette Brush complains of No chief complaint on file. I have reviewed and updated the patient's Past Medical History, Social History, Family History and Medication List. ALLERGIES Cephalexin; Ciprofloxacin; Clindamycin; Lanolin; Lisinopril; Mupirocin; Neomycin; and Penicillins Additional provider notes: Medical Weight Loss Initial Diet Evaluation Charlette is presenting today for a new weight management nutrition consultation. Pt has had an initial appointment with Dr. Lala. Weight Loss Goal: patient states she has a large, slow healing wound on her buttocks, using wound vac Nutrition Assessment: Anthropometrics: Pt's Initial Weight: 357 lbs Weight: (!) 349 lb (158.3 kg) Weight loss from initial: 8 % Weight loss: 2.24 % BMI: Vitals: 04/08/20 1400 Weight: (!) 349 lb (158.3 kg) IBW: 135-145lb Estimated RMR ([place]-St Jeor equation): 2122kcal Recommended Protein Intake: 100 grams of protein/day Medical History: Patient Active Problem List Diagnosis ??? Sleep apnea ??? Necrotizing soft tissue infection ??? Morbid obesity (H) ??? Lymphedema ??? Injury of left sciatic nerve ??? Hx pulmonary embolism ??? Hypertension ??? Physical deconditioning ??? Adjustment disorder with depressed mood ??? Anterior basement membrane dystrophy ??? Anxiety ??? Benign essential hypertension ??? Binge eating ??? Cataract ??? Cortical age-related cataract, both eyes ??? Eczema ??? Encounter for screening for cardiovascular disorders ??? Iron deficiency anemia due to chronic blood loss ??? 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 Lower [...] Microscopic hematuria ??? Infected wound ??? Dysesthesia Diabetes: No Nutrition History: Food allergies/intolerances/cultural or religous food customs: Yes- has celiac gene (no official test)- follows a low gluten diet Weight loss history: weight watchers- lost 60-70lb the first time she joined Biggest weight loss struggle per pt: lack of activity Vitamins/Mineral Supplementation: vitamin C, multivitamin Dietary Recall: Breakfast: 20g protein bar- 10-15g fiber Drinks 1/2 premier protein shake Snack:3 scrambled eggs, piece of toast, glass of milk, sometimes fruit Lunch:later afternoon- Persian yogurt, cottage cheese, meat and cheese, etc. Dinner:salad with greens, lean meat Snack: sometimes- will have a yogurt if not eaten during the day Hydration (type/oz. per day): Water: patient reports drinking throughout the day Exercise: Routine exercise established: No Nutrition Diagnosis (PES statement): Overweight/Obesity (NC 3.3) related to overeating and poor lifestyle habits as evidenced by patient report of lack of activity, frequent snacking and BMI 54.66 Nutrition Intervention: 1. Food and/or Nutrient Delivery a. Placed emphasis on importance of developing a healthy meal routine, aiming for 3 meals a day and no snacks. b. Discussed using a protein supplement as a meal replacement. 2. Nutrition Education a. Discussed with patient how to build a meal: the importance of including a lean/low fat protein ateach meal, include a source of vegetables at a minimum of lunch and dinner and limiting carbohydrateintake b. Educated on sources of lean protein, portion sizes, the amount of grams found in each source. Recommend patient to aim for 20-30g protein at each meal. c. Discussed vitamins and minerals to aid in wound healing such as Vitamin C, Vitamin A and zinc as well as ways to incorporate these into the diet. d. Discussed the importance of adequate hydration, with emphasis on drinking 64oz of water or zero calorie beverages per day. 3. Nutrition Counseling a. Encouraged importance of developing routine exercise for health benefits and weight loss Goals established by patient: 1. Patient was not willing to set any goals at this time as she reports having a lot on her plate right now Handouts provided: Information on wound healing and nutrition Assessment/Plan: Pt will follow up in 1 month(s) with bariatrician and 2-3 month(s) with dietitian. Phone call duration: [address] documented in this encounter Plan of Treatment Upcoming Encounters Date Type Specialty Care Team Description 11/15/2022 Virtual Visit Pharm Haylie Gonzalez, [facility] 14[address] [facility] [place] [id number] (Wo rk) 11/15/2022 Virtual Visit IM/Yane Mathias MD [address] [place] [address] [place] [id number] (Wo rk) 03/03/2023 Virtual Visit Neurology Erlinda Barber MD [address] [place] [address] 295 [place], [place] [address]85 (Wo rk) documented as of this encounter Visit Diagnoses Diagnosis Morbid obesity with BMI of 50.0-59.9, ad ult (H) Nutritional counseling documented in this encounter Additional Health Concerns Assessment Noted Time PHQ-9 Depression Total Score: 4 04/12/2019 7:03 AM CDT documented as of this encounter Care Teams Food And Nutrition Services Assistant Relationship Specialty Start Date End Date Jaiden Holcomb PCP - General Internal Medicine 02/13/2010/03 MD Jayesh [address] [place] [address] [place] [address] Chastity Montero MD Dermatology 09/23/14 420 [facility] 98 [place], [place] [address] Johnnie Alcocer MD Surgeon General Surgery 9/7/[address] [place], [place] [address] Danni Marcus, RN Personal Advocate & 01/09/1901/17 Liaison (PAL) Mtiknsey, Ea Complex 04/23/19 Svetlana Osman, Pharmacist Pharmacotherapy 04/23/19 [facility] [address] [place], [place] [id number] Haylie Cheung, Pharmacist Pharmacist 09/11/19 [facility] [address] [place], [place] [id number] Galdino Valdez MD Assigned PCP 11/10/19 05/23/20 [address] [place], [place] [id number] Opal, Assigned Sleep 05/08/20 03/27/21 Kendall Meehan MD Provider [address] [place] [address] [place] [address] Erlinda Barber MD Assigned Neuroscience 05/08/20 01/26/21 420 [facility] 295 Provider [place], [place] [phone] Jaiden Holcomb Assigned PCP 05/24/20 MD Jayesh 909 [place], [place] [id number] documented as of this encounter
--- OUTSIDE RECORDS SUMMARY | 2022-06-15 12:53 | XMS_ITS | Encounter Summary ---
:1945 Author Organization [place] Address [address] [place] [address] Care Team Providers Name Role Phone Chastity Montero MD Unavailable [phone] Johnnie Alcocer MD Unavailable Danni Marcus RN Unavailable Unavailable Mtm, Ea Complex Unavailable Unavailable Svetlana Osman [facility] Unavailable [phone] Haylie Cheung [facility] Unavailable [phone] Galdino Valdez MD Unavailable Jaiden Holcomb MD Primary Care Provider [phone] Kendall Joseph MD Unavailable Erlinda Barber MD Unavailable Jaiden Holcomb MD Unavailable [phone] Ruth John MD Unavailable Kajal Huggins MD Unavailable Patience Toussaint NP Unavailable Brook Sánchez MD Unavailable Yane Barraza MD Primary Care Provider Osmar Kidd MD Unavailable Erlinda Barber MD Unavailable Yane Barraza MD Primary Care Provider Lenore Alcala MD Unavailable Haylie Cheung [facility] Unavailable [phone] Gaye Patrick RN Unavailable Unavailable Kenya Abernahty MIGEL TOUCH UP PAINTER HAND Unavailable [phone] Hayley German OD Unavailable [phone] Haylie Cheung [facility] Unavailable [phone] Reason for Visit Reason Comments Medication Refill Encounter Details Date Type Department Care Team Description 04/01/[address] [facility] Galdino Valdez MD Medication Refill [place] [id number] [place] [address] [phone] Social History Tobacco Use Types Packs/Day Years [...] Visit Pharm Haylie Gonzalez, [facility] 1440 [facility] [place] [id number] (Wo rk) 11/15/2022 Virtual Visit IM/Peds Yane Barraza MD [address] [place] [address] [address] [place] [id number] (Wo rk) 03/03/2023 Virtual Visit Neurology Erlinda Barber MD [address] [place] [address] 295 [place], [place] [phone] (Wo rk) documented as of this encounter Visit Diagnoses Diagnosis 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 embolism 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 documented in this encounter Additional Health Concerns Assessment Noted Time PHQ-9 Depression Total Score: 4 04/12/2019 7:03 AM CDT documented as of this encounter Care Teams Barrel Loader Relationship Specialty Start Date End Date Jaiden Holcomb PCP - General Internal Medicine 02/13/2010/03 MD Jayesh [address] [place] [address] [place] [id number] Yane Barraza MD PCP - General Internal Medicine 10/04/21 12/07/[address] [place] [address] [place] [id number] Yane Barraza MD PCP - General Internal Medicine 12/08/[address] [place] [address] [place] [id number] Chastity Montero MD Dermatology 09/23/14 420 [facility] 98 [place], [place] [address] Johnnie Alcocer MD Surgeon General Surgery 9/7/[address] [place] [address] Danni Marcus, CHANDLER Personal Advocate & 01/09/1901/17 Liaison (PAL) Kyle King Complex 04/23/19 Svetlana Osman, Pharmacist Pharmacotherapy 04/23/19 [facility] [address] [place] [address] [address] [place], [place] [phone] Haylie Cheung, Pharmacist Pharmacist 09/11/[address] [place], [place] [phone] Galdino Valdez MD Assigned PCP 11/10/19 05/23/20 [address] [place], [place] [phone] Opal, Assigned Sleep 05/08/20 03/27/21 Kendall Meehan MD Provider [address] [place] [address] 106 [place], [place] 8[address] Erlinda Barber MD Assigned Neuroscience 05/08/20 01/26/21 420 [facility] 295 Provider [place], [place] [address] Jaiden Holcomb Assigned PCP 05/24/20 MD Jayesh 909 [place], [place] [phone] Ruth John MD Assigned Infectious 01/29/21 07/03/21 [facility] INFECTIOUS Disease Provider [facility] [address] [facility] [address] [place], [place] [phone] Kajal Huggins MD Assigned Neuroscience 01/29/21 10/23/21 2945 [facility] Provider [address] [place], [place] [phone] Patience Toussaint NP Assigned Surgical 01/29/21 02/11/22 2945 [facility] Provider [address] [place] [id number] Brook Sánchez MD Assigned Infectious 07/04/[address] Disease Provider [place], [place] [address] Osmar Kidd MD Assigned Sleep 09/26/[address] [place] [address] Erlinda Barber MD Assigned Neuroscience 10/24/21 420 [facility] 295 Provider [place], [place] [address] Lenore Alcala MD Assigned Heart and 12/18/21 01/21/[address] [place] Vascular Provider [address] [place] [address] Haylie Cheung, Assigned MTM 01/08/22 [facility] Pharmacist [address] [place] [address] Gaye Patrick, RN Personal Advocate & 01/18/22 Liaison (PAL) Kenya Abernathy APRN Assigned Heart and 01/22/22 TOUCH UP PAINTER HAND Vascular Provider [address] [place] [address] Hayley German, Assigned Surgical 02/12/22 OD Provider 3305 [facility] [place] [address] Haylie Cheung, Assigned MTM 04/13/22 [facility] Pharmacist [address] [place] [address] [id number] documented as of this encounter
--- OUTSIDE RECORDS SUMMARY | 2022-06-15 12:53 | XMS_ITS | Encounter Summary ---
:1945 Author Organization [place] Address [address] [place] [address] Care Team Providers Name Role Phone Chastity Montero MD Unavailable [phone] Johnnie Alcocer MD Unavailable Danni Marcus RN Unavailable Unavailable Mtm, Ea Complex Unavailable Unavailable Svetlana Osman [facility] Unavailable [phone] Haylie Cheung [facility] Unavailable [phone] Galdino Valdez MD Unavailable Jaiden Holcomb MD Primary Care Provider [phone] Kendall Joseph MD Unavailable Erlinda Barber MD Unavailable Jaidne Holcomb MD Unavailable Reason for Visit Reason Comments Other Prontosan Encounter Details Date Type Department Care Team Description 04/22/2020 [facility] Patience Martinez Other ([facility] A, RN [address] [address] Social History Tobacco Use Types [...] Telephone Encounter - Patience Martinez RN - 04/23/2020 10:35 AM CDT Received communication from [facility] that patient was contacted and declined to purchase prontosan gel. Telephone Encounter - Patience Martinez RN - 04/22/2020 3:16 PM CDT Juanita from [facility] called because they are unable to order the prontosan wound gel. Newspaper Manager updated her that insurance will not cover the prontosan with the amount of drainage Charlette is having but will place an order to [facility] with the option to order out of pocket. documented in this encounter Plan of Treatment Upcoming Encounters Date Type Specialty Care Team Description 11/15/2022 Virtual Visit Haylie Wake[place], [facility] [address] [place] [phone] (Wo rk) 11/15/2022 Virtual Visit [place] [address] [place] [address] [place] [id number] (Wo rk) 03/03/2023 Virtual Visit Neurology Erlinda Barber MD 420 [facility] 295 [place], [place] [address] (Wo rk) documented as of this encounter Visit Diagnoses Not on filedocumented in this encounter Additional Health Concerns Assessment Noted Time PHQ-9 Depression Total Score: 4 04/12/2019 7:03 AM CDT documented as of this encounter Care Teams Production Line Solderer Relationship Specialty Start Date End Date Jaiden Holcomb PCP - General Internal Medicine 02/13/2010/03 MD Jayesh [address] [place] [address] [address] [place] [phone] Chastity Montero MD Dermatology 09/23/14 420 [facility] 98 [place], [place] [address] Johnnie Alcocer MD Surgeon General Surgery 03/23/17 [address] [facility] 300 [place], [place] [phone] Danni Marcus, CHANDLER Personal Advocate & 01/09/1901/17 Liaison (PAL) Fernando, Ea Complex 04/23/19 Svetlana Osman, Pharmacist Pharmacotherapy 04/23/19 [facility] [address] [place], [place] [phone] Haylie Cheung, Pharmacist Pharmacist 09/11/19 [facility] [address] [place], [place] [phone] Galdino Valdez MD Assigned PCP 11/10/19 05/23/20 [address] [place], [place] [phone] Opal, Assigned Sleep 05/08/20 03/27/21 Kendall Meehan MD Provider [address] [place], [place] [address] Erlinda Barber MD Assigned Neuroscience 05/08/20 01/26/21 420 [facility] 295 [place] [address] Jaiden Holcomb Assigned PCP 05/24/20 MD Jayesh 909 [place] [address] documented as of this encounter
--- OUTSIDE RECORDS SUMMARY | 2022-06-15 12:53 | XMS_ITS | Encounter Summary ---
:1945 Author Organization [facility] Address [address] [place] [address] Care Team Providers Name Role Phone Chastity Montero MD Unavailable [phone] Johnnie Alcocer MD Unavailable Danni Marcus RN Unavailable Unavailable Mtm, Ea Complex Unavailable Unavailable Svetlana Osman [facility] Unavailable [phone] Haylie Cheung [facility] Unavailable [phone] Galdino Valdez MD Unavailable Jaiden Holcomb MD Primary Care Provider [phone] Kendall Joseph MD Unavailable Erlinda Barber MD Unavailable Jaiden Holcomb MD Unavailable [phone] Encounter Details Date Type Department Care Team Description 04/10/2020 [facility] Patience Martinez Pressure injury of [facility] Tita RN left ischium , stage [place] 4 (H) [address] [facility] [address] [place] [address] Social History Tobacco Use Types [...] Haylie Cheung, [facility] [address] [facility] [place] [address] (Lena max) 11/15/2022 Virtual [place] [address] [place] [address] [place] [phone] (Wo winter) 03/03/2023 Virtual Visit Neurology Erlinda Barber MD 420 [facility] 295 [place] [address] (Wo iwnter) documented as of this encounter Visit Diagnoses Diagnosis Pressure injury of left ischium, stage 4 (H) documented in this encounter Additional Health Concerns Assessment Noted Time PHQ-9 Depression Total Score: 4 04/12/2019 7:03 AM CDT documented as of this encounter Care Teams Spiral Runner Relationship Specialty Start Date End Date Jaiden Holcomb PCP - General Internal Medicine 02/13/2010/03 MD Jayesh [address] [facility] [place] [address] Chastity Montero MD Dermatology 09/23/14 420 [facility] 98 [place], [place] [address] Johnnie Alcocer MD Surgeon General Surgery 03/23/[address] 300 [place], [place] [address] Danni Marcus, CHANDLER Personal Advocate & 01/09/1901/17 Liaison (PAL) Fernando, Ea Complex 04/23/19 Svetlana Osman, Pharmacist Pharmacotherapy 04/23/19 [facility] [address] [facility] [place] [address] Haylie Cheung, Pharmacist Pharmacist 09/11/19 [facility] [address] [place], [place] [phone] Galdino Valdez MD Assigned PCP 11/10/19 05/23/20 [address] [place], [place] [phone] Opal, Assigned Sleep 05/08/20 03/27/21 Kendall Meehan MD Provider [address] [place], [place] [address] Erlinda Barber MD Assigned Neuroscience 05/08/20 01/26/21 [address] [place] [facility] 295 Provider [place], [place] [phone] Jaiden Holcomb Assigned PCP 05/24/20 MD Jayesh 909 [place], [place] [phone] documented as of this encounter
--- OUTSIDE RECORDS SUMMARY | 2022-06-15 12:53 | XMS_ITS | Encounter Summary ---
:1945 Author Organization [place] Address [facility] [place] [address] Care Team Providers Name Role Phone Chastity Montero MD Unavailable [phone] Johnnie Alcocer MD Unavailable Danni Marcus RN Unavailable Unavailable Mtm, Ea Complex Unavailable Unavailable Svetlana Osman [facility] Unavailable [phone] Haylie Cheung [facility] Unavailable [phone] Galdino Valdez MD Unavailable Jaiden Holcomb MD Primary Care Provider [phone] Kendall Joseph MD Unavailable Erlinda Barber MD Unavailable Jaiden Holcomb MD Unavailable [phone] Reason for Visit Reason Comments Other left IT ulcer; 4 weeks follo w up Encounter Details Date Type Department Care Team Description 04/21/2020 Office Visit - [facility] Kajal Huggins Pre ssure injury of left ischium, stage 4 (H); [facility] MD Amari Leg swelling; [place] [address] [facility] Left buttock pain; [address] Chronic osteomyelitis, pelvis, left (H); [address] [place], [place] Morbid obesity with BMI of 5 0.0-59.9, adult (H) [place] [id number] [phone] Social History Tobacco Use Types Packs/Day Years [...] Sign Reading Time Taken Comments Blood Pressure 122/84 04/21/2020 2:35 PM CDT left wris t Pulse 76 04/21/2020 2:35 PM CDT Temperature 36.3 ??C (97.4 ??F) 04/21/2020 2:35 PM CDT Respiratory Rate 17 04/21/2020 2:35 PM CDT Oxygen Saturation - - Inhaled Oxygen Concentration - - Weight - - Height - - Body Mass Index - - documented in this encounter Progress Notes Kajal Huggins MD - 04/21/2020 2:20 PM CDT Images from the original note were not included. Progress Notes by Kajal Huggins MD at 04/21/2020 2:20 PM Author: Kajal Huggins MD Service: -- Author Type: Physician Filed: 04/21/2020 4:19 PM Encounter Date: 04/21/2020 Status: Signed Trash Truck Driver: Kajal Huggins MD (Physician) Date of Service: 04/21/2020 Date last seen by Dr. Huggins: 03/12/2020 PCP: Doris Lai MD Impression: ?? 1. Left ischial ulceration chronic-significant worsening 2. Increased left lower post pelvic pain with increased odor. Inflammatory markers up. 3. Osteomyelitis left pelvic IT-highly suspicious 4. Hypoalbuminemia 5. History of necrotizing fasciitis 6. History of osteomyelitis 7. Morbid obesity 8. Nutritional deficiencies ?? Plan: 1. Questions were answered and education was completed. 2. After discussion of risk factors and consent obtained 2% Lidocaine HCL jelly was applied, under clean conditions, the left ischial ulceration was debrided using curette. Devitalized and non viable tissue, along with any fibrin and slough, was removed to improve granulation tissue formation, stimulate wound healing, decrease overall bacteria load, disrupt biofilm formation and decrease edge senescence. Total excisional debridement was 35 sq cm into the muscle/fascia. Ulcer was improved afterwards and housecleaner. Measures were as noted on the flow sheet . No bone was palpated, but this is much deeper. 3. Wound treatment will include irrigation and dressings to promote autolytic debridement and will be: Hibiclens wash then NS rinse then prontosan or Vashe cleanser then alginate with silver then foam with silicon border. Change every other day. [facility]. 4. To see Dr. Denton soon. Written. 5. Because of underlying concern of cellulitis and wound infection, after risks reviewed and permission obtained, deep tissue culture technique was used to send off for aerobic and anaerobic Gram stainand culture from the L IT ulcer. Area was numbed with 1 ml 1% Lidocaine. It was also sent for AFB and fungal cultures. 6. MRI pelvis to check for highly suspected osteomyelitis. 7. Patient will follow up with me or Patience Fitzpatrick CNP in 2-3 weeks. Time spent with patient 15 minutes with greater than 50% time in consultation, education and coordination of care, excluding procedures. CChief Complaint: Left IT pressure ulcer History of Present Illness: Charlette Brush returns to the [facility] for her [...] foam. She was referred to Dr. Steward for possible flap and closure. He feltshe was not a surgical candidate due to ulcer being too large and how overweight she was. She then saw Dr. Mindy Biswas on 08/23/2018 who also felt that she was not a good surgical candidate due to high risk of dehiscence or failure. She was referred to me because of continued problems healing. Patience Toussaint got a number of nutritional labs and inflammatory labs. Prealbumin was slightly decreased at 16.4. ESR was slightly elevated at 23 but much improved from a year ago. CRP was 0.7 and now normal. Vi tamin A, C, D and zinc levels were normal. In the past she had been treated for lymphedema with fulllymphedema therapy and provided with a lymphedema pump and CircAid for her legs. She also has a history of alf anticoagulation with history of PE and paroxysmal a-fib. When I first saw her in clinic on 12/02/2019 the area was debrided. We discussed the wound in detail. I changed her wound dressings to R IT prontosan gel or hibiclens wash then NS followed by endoderm deep packing then alginate with silver to fill then foam with silicon border. ??May use barrier cream to protect kleevr wound skin.??Change daily. ??May go to every other day if exudate controlled. ??Keep wound warm and moist, not wet or dry. ??Keep pressure off!!!. I also added vitamin B 12 and B6 levels. We discussed use of theFlexitouch. I checked her left AFO brace for her left foot drop and this appeared to be appropriate and fitting well. At follow up the dressings were not what was ordered. She was debrided and my nurses worked on getting the appropriate dressings continued. At her last follow up she was debrided and wound care ordered was Wound Pressure Treatment (NWPT) when supplies are available. Change NWPT 3 times / week. Irrigate wound with hibiclens wash and NS and clean surrounding skin with Normal Saline, or wound cleanser, or soap and water. ??Rinse with water or saline. ??Apply skin barrier to klever-wound tissue. Lightly pack endoform into deep areas of ulcer (may cut in pieces for better placement) Then gently place foam into wound bed.Cover with transparent drape and affix negative pressure pad.K.C.I. V.A.C. Settings: 125mmHg: Continuous.May adjust pressure from 110mmHg to 150 mmHg to accommodate comfort or wound drainage.If foam adheres to wound, may use a single layer, wide meshed, non-adherent dressing (e.g. Adaptic gauze, Aquaphor, ) in wound bed prior to foam placement.Back-Up Plan: ??When NWPT not available, place moist gauze in wound bed, cover with appropriate dressing to keep wound bed moist. ??Change 1-2 times daily until negative pressure can be reapplied. She was also going to follow up with bariatrics and restart the lymphedema pump. In addition, her protein stores were low and she was to see the unit manager rn in March after seeing Dr. Lala for bariatric medicine 03/27/2020. She recently called the clinic with increased pain in the area and increased odor with increased toña inage. CRP, CBC and ESR were ordered. Sed rate and CRP have increased. She comes in today for re evaluation and possible culture. She has not had a fever, but feels the pain is worsening. Past Medical History: Diagnosis Date ? Acute [...] Patient has appointment with [facility] Specialist at [facility] on 01/11. 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 ? Morbid obesity (H) [...] Referral placed for Dr. Kajal Huggins at [facility] in [place] per patient request. She has contact i [...] by mouth daily., Disp: , Rfl: ? owaiktmmzidz-[id number]-haxvpx (CEROVITE SENIOR) tablet, Take 1 tablet by [...] file Gets together: Not on file Attends holiness service: Not on file Active member of [...] ? Thyroid disease Mother Review of Systems: Charlette Brush no new numbess, tingling or weakness, redness or rashes, fevers, new masses, abdominal bloating or discomfort, unexplained weight loss, increased pain, new ulcers, shortness of breath and chest pain Full 12 point review of systems was completed. Imaging: I personally reviewed the following imaging results today and those on care everywhere, if indicated EXAM: MRI PELVIS WITHOUT AND WITH IV CONTRAST LOCATION: [facility] DATE/TIME: 05/24/2019 12:03 PM ?? INDICATION: Pelvis [...] indicated Lab Results Component Value Date SEDRATE 48 (H) 04/10/2020 Lab Results Component Value Date CRP 3.6 (H) 04/10/2020 Lab Results Component Value Date CREATININE 0.62 06/04/2019 No results found for: HGBA1C Lab Results Component Value Date BUN 23 06/04/2019 Lab Results Component Value Date ALBUMIN 3.3 (L) 06/04/2019 Vitamin D, Total (25-Hydroxy) Date Value Ref Range Status 03/27/2020 47.0 30.0 - 80.0 ng/mL Final No results found for: TSH Lab Results Component Value Date WBC 7.4 04/10/2020 HGB 14.6 04/10/2020 HCT 42.7 04/10/2020 MCV 93 04/10/2020 PLT 298 04/10/2020 Ref Range & Units 12/11/19 1213 Prealbumin [...] Glu 90 Hgb 14.7 Physical Exam: Vitals: 04/21/20 1435 BP: 122/84 Pulse: 76 Resp: 17 Temp: 97.4 ??F (36.3 ??C) BMI 54.65 Weight 349 lbs (-4) (04/08/2020) Circumferential measures: No flowsheet data found. VASC [...] Pre Total Sq cm 0.06 03/24/20 1100 General: 75 y.o. female in no apparent distress. Psych: Alert and oriented x 3. Cooperative. Affect normal. HEENT: Atraumatic, normocephalic Integumentary: Ulceration now measures 8.5 X 4.7 cm X 7 cm depth which is significantly larger. Poorgranulation tissue. Ebole continues at edges. Moderate serosanguinous drainage and significant odor.Pain to palpation of medial distal posterior left pelvis. Please see flow sheet for measures. 12/12/2019 L IT 12/23/2019 01/08/2020 03/12/2020 Kajal Huggins MD, Founding Diplomate ABWMS, FACCWS, FAAPMR Manager Wound Wound Care and Lymphedema [facility] [phone] This note was dictated using a voice recognition software. Any grammatical or context distortion areunintentional and inherent to the software. documented in this encounter Miscellaneous Notes Patient Instructions - HE - Molly Guido - 04/21/2020 2:20 PM CDT Wound Instruction: Diluted Hibiclens wash then NS rinse then prontosan or Vashe cleanser Apply alginate with silver Into the wound then Cover with foam with silicon border. ?? Change every other day. documented in this encounter Plan of Treatment Upcoming Encounters Date Type Specialty Care Team Description 11/15/2022 Virtual Visit Pharm Haylie Gonzalez, [facility] [address] [place] [address] (Lena max) 11/15/2022 Virtual Visit IM/Peds Yane Barraza MD [address] [facility] [place] [address] (Wo winter) 03/03/2023 Virtual Visit Neurology Erlinda Barber MD [address] [facility] [address] [place], [place] [address] (Wo winter) documented as of this encounter Procedures Procedure Name Priority Date/Time Associated Diagnosis Comme nts AEROBIC BACTERIAL Routine 04/21/2020 6:15 PM Resu lts for this CULTURE ROUTINE CDT procedure ar e in the results section. FUNGAL OR YEAST Routine 04/21/2020 6:15 PM Result s for this CULTURE ROUTINE CDT procedure ar e in the results section. ANAEROBIC BACTERIAL Routine 04/21/2020 6:15 PM Re sults for this CULTURE ROUTINE CDT procedure ar e in the results section. ACID FAST STAIN Routine 04/21/2020 6:15 PM Result s for this CDT procedure are i n the results section. AFB CULTURE AND Routine 04/21/2020 4:37 PM Result s for this STAIN NON BLOOD CDT procedure ar e in the results section. documented in this encounter Results (ABNORMAL) Tissue Aerobic Bacterial Culture Routine (04/21/2020 6:15 PM CDT) [facility] Method Time Signature Culture PROTEUS 04/27/2020 [employer] MIRABILIS (A) 8:00 AM CDT [facility] Comment: 2+ Proteus mirabilis Culture STREPTOCOCCUS VIRIDANS 04/27/2020 8:00 A M CDT [facility] (A) [facility] Comment: 2+ Streptococcus viridans group Culture PROTEUS MIRABILIS (A) 04/27/2020 8:00 AM CDT [facility] Comment: 1+ Proteus mirabilis Culture DIPHTHEROIDS (A) 04/27/2020 8:00 AM CDT [facility] Comment: 1+ Diphtheroids Culture ENTEROCOCCUS FAECALIS (A) 04/27/2020 8:00 AM CDT [facility] Comment: 1+ Enterococcus faecalis Gram Stain No polymorphonuclear 04/27/2020 8:00 AM HEALTH Result leukocytes seen CDT [facility] Gram Stain No organisms seen 04/27/2020 8:00 AM HEALTH Result CDT [facility] Specimen Anatomical Collection Method Collection Time Receive d Time (Source) Location / / Volume Laterality Tissue specimen 04/21/2020 6:15 PM 2019 9:30 (specimen) CDT PM CDT Organism Antibiotic Method Susceptibility Proteus mirabilis Amikacin LOW <=8: Susceptib le Proteus mirabilis Amoxicillin/Clavulanate LOW <=4/2: Susceptible Proteus mirabilis Ampicillin LOW >16: Resistant Proteus mirabilis Cefazolin LOW 8: Susceptible Proteus mirabilis Cefepime LOW <=1: Susceptib le Proteus mirabilis Ceftriaxone LOW <=1: Susceptib le Proteus mirabilis Ciprofloxacin LOW >2: Resistant Proteus mirabilis Gentamicin LOW >8: Resistant Proteus mirabilis Levofloxacin LOW >4: Resistant Proteus mirabilis Piperacillin/Tazobactam LOW <=2/4: Susceptible Proteus mirabilis Tetracycline LOW >8: Resistant Proteus mirabilis Tobramycin LOW >8: Resistant Proteus mirabilis Trimeth/Sulfa LOW >2/38: Resista nt Comment: L89.324 Proteus mirabilis Amikacin LOW <=8: Susceptib le Proteus mirabilis Amoxicillin/Clavulanate LOW <=4/2: Susceptible Proteus mirabilis Ampicillin LOW >16: Resistant Proteus mirabilis Cefazolin LOW 16: Intermedia te Proteus mirabilis Cefepime LOW <=1: Susceptib le Proteus mirabilis Ceftriaxone LOW <=1: Susceptib le Proteus mirabilis Ciprofloxacin LOW >2: Resistant Proteus mirabilis Gentamicin LOW >8: Resistant Proteus mirabilis Levofloxacin LOW >4: Resistant Proteus mirabilis Piperacillin/Tazobactam LOW <=2/4: Susceptible Proteus mirabilis Tetracycline LOW >8: Resistant Proteus mirabilis Tobramycin LOW >8: Resistant Proteus mirabilis Trimeth/Sulfa LOW >2/38: Resista nt Comment: L89.324 Enterococcus faecalis Ampicillin LOW 2: Suscept ible Comment: L89.324 Kajal Huggins MD LAB - MICRO GENERAL ORDERABL ES Performing Organization Address City/State/ZIP Code Phon [place] [address] [address] [facility] Fungal or Yeast Culture Routine (04/21/2020 6:15 PM CDT) [facility] Time Signature Culture No Fungus 05/13/2020 [facility] 7:36 AM CDT [facility] Specimen Anatomical Collection Method Collection Time Receive d Time (Source) Location / / Volume Laterality Tissue specimen 04/21/2020 6:15 PM 2019 9:30 (specimen) CDT PM CDT Narrative [facility] - 05/13/2020 7:36 AM CDT Left ischial ulceration Kajal Huggins MD LAB - MICRO GENERAL ORDERABL ES Performing Organization Address [facility] Ph[place] [address] [address] [facility] [place] [address], [facility] [phone] (ABNORMAL) Anaerobic Bacterial Culture Routine (04/21/2020 6:15 PM CDT) Component Value Ref Test Analysis Performed At [facility] Range Method Time Signature Culture PEPTOSTREPTOCOCCUS 04/24/2020 [facility] SPECIES (A) 12:06 PM [facility] Comment: 2+ Peptostreptococcus species Specimen Anatomical Collection Method Collection Time Receive d Time (Source) Location / / Volume Laterality Tissue specimen 04/21/2020 6:15 PM 2019 9:30 (specimen) CDT PM CDT Kajal Huggins MD LAB - MICRO GENERAL ORDERABL ES Performing Organization Address [facility] Code Phon e Number [facility] [address] [address] [facility] Acid fast stain (04/21/2020 6:15 PM CDT) [facility] [employer] Method Time Signature AFB STAIN No No 04/22/2020 [facility] Acid-fast Acid-fast 10:36 AM CDT [facility] bacilli bacilli [facility] seen on seen on LABORATORY smear smear Organisms/sli 04/22/2020 [facility] 10:36 AM CDT [facility] Specimen Anatomical Collection Method Collection Time Receive d Time (Source) Location / / Volume Laterality Tissue specimen 04/21/2020 6:15 PM 2019 9:30 (specimen) CDT PM CDT Kajal Huggins MD LAB - MICRO GENERAL ORDERABL ES Performing Organization Address City/State/ZIP Code Phon [place] [address] [address] [facility] AFB Culture Non Blood (04/21/2020 4:37 PM CDT) [facility] Method Time Signature Culture No Mycobacteria 06/03/2020 [facility] 7:25 AM [facility] Specimen Anatomical Collection Method Collection Time Receive d Time (Source) Location / / Volume Laterality Tissue specimen 04/21/2020 4:37 PM 2019 9:30 (specimen) CDT PM CDT Kajal Huggins MD LAB - MICRO GENERAL ORDERABL ES Performing Organization Address City/[facility] Code Phon [place] [address] [address] [facility] documented in this encounter Visit Diagnoses Diagnosis Pressure injury of left ischium, stage 4 (H) Leg swelling Swelling of limb Left buttock pain Mylagia and myositis, unspecified Chronic osteomyelitis, pelvis, left (H) Morbid obesity with BMI of 50.0-59.9, ad ult (H) documented in this encounter Additional Health Concerns Assessment Noted Time PHQ-9 Depression Total Score: 4 04/12/2019 7:03 AM CDT documented as of this encounter Care Teams Graduating Machine Operator Relationship Specialty Start Date End Date Jaiden Holcomb PCP - General Internal Medicine 02/13/2010/03 MD Jayesh [address] [facility] [place] [id number] Chastity Montero MD Dermatology 09/23/[address] [place] [address] [address] [place], [place] [phone] Johnnie Alcocer MD Surgeon General Surgery 03/23/[address] [place], [place] [address] Danni Marcus, RN Personal Advocate & 01/09/1901/17 Liaison (PAL) [place], Ea Complex 04/23/19 Svetlana Osman, Pharmacist Pharmacotherapy 04/23/19 [facility] [address] [place] [id number] Haylie Cheung, Pharmacist Pharmacist 09/11/19 [facility] [address] [place], [place] [phone] Galdino Valdez MD Assigned PCP 11/10/19 05/23/20 [address] [place], [place] [phone] Opal, Assigned Sleep 05/08/20 03/27/21 Kendall Meehan MD Provider [address] [place] [address] Erlinda Barber MD Assigned Neuroscience 05/08/20 01/26/21 [address] [facility] [address] [place] [address] Jaiden Holcomb Assigned PCP 05/24/20 MD Jayesh [address] [place] [address] documented as of this encounter
--- OUTSIDE RECORDS SUMMARY | 2022-06-15 12:53 | XMS_ITS | Encounter Summary ---
:1945 Author Organization [place] Address [address] [place] [address] Care Team Providers Name Role Phone Chastity Montero MD Unavailable [phone] Johnnie Alcocer MD Unavailable Danni Marcus RN Unavailable Unavailable Mtm, Ea Complex Unavailable Unavailable Svetlana Osman [facility] Unavailable [phone] Haylie Cheung [facility] Unavailable [phone] Galdino Valdez MD Unavailable Jaiden Holcomb MD Primary Care Provider [phone] Encounter Details Date Type Department Care Team Description 04/17/2020 Anticoagulation Therapy [facility] Zhang, 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 embolism; Visit Clinic Yarelis Hwang Paroxysmal atrial fibrillati on (H); [address] Fal[address] MD Jayesh shelter current use of anticoagulant t [address] [facility] [address] Social History Tobacco Use Types Packs/Day [...] organizations such as roman catholic groups, unions, [employer] or athletic groups, or school groups? How [...] encounter Progress Notes Fadumo Davies RN - 04/17/2020 1:05 PM CDT ANTICOAGULATION MANAGEMENT Patient Name: Charlette Brush Date: 04/17/2020 ASSESSMENT /SUBJECTIVE: Today's INR result of 2.3 is therapeutic. Goal INR of 2.0-3.0 ??? Warfarin dose taken: Warfarin taken as instructed ??? Diet: No new diet changes affecting INR ??? Medication changes/ interactions: Taking fish oil and warfarin may increase risk of bleeding, but not expected to affect INR No interaction expected between multivitamin, zinc and warfarin (no vitamin k in multivitamin) ??? Previous INR: Therapeutic ??? S/S of bleeding or thromboembolism: No ??? New injury or illness: No ??? Upcoming surgery, procedure or cardioversion: No ??? Additional findings: None PLAN: Telephone call with home care nurse Juanita regarding INR result and instructed: Warfarin Dosing Instructions: Continue your current warfarin dose 5 mg on mon/mon and 10 mg all other days Instructed patient to follow up no later than: 4 weeks Orders given to Homecare nurse/facility to recheck Education provided: None required and Potential interaction between warfarin and fishoil, signs of bleeding Juanita, home care,verbalizes understanding and agrees to warfarin dosing plan. Instructed to call the Anticoagulation Clinic for any changes, questions or concerns. (#[phone]) Fadumo Davies RN OBJECTIVE: Recent labs: (last 7 days) 04/17/20 INR 2.3* No question data found. 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 Anticoagulation Care Providers Provider Role Specialty Phone number Galdino Valdez MD Referring Family Practice [phone] [facility] Responsible Internal Medicine [phone] documented in this encounter Plan of Treatment Upcoming Encounters Date Type Specialty Care Team Description 11/15/2022 Virtual Visit Pharm Haylie Gonzalez, [facility] [address] [facility] [place] [address] (Lena max) 11/15/2022 Virtual Visit IM/PedYane Muir MD [address] [facility] [place] [address] (Lena max) 03/03/2023 Virtual Visit Neurology Erlinda Barber MD 420 [facility] 295 [place] [address] (Lena max) documented as of this encounter Procedures Procedure Name Priority Date/Time Associated Diagnosis Comme nts INR Routine 04/17/2020 Results for thi s procedure are in the resu lts section. documented in this encounter Results (ABNORMAL) INR (04/17/2020) P athologist Signature INR 2.3 (A) 0.90 - 1.10 EXTERNAL LAB Specimen (Source) Anatomical Location Collection Method / Collectio n Time Received Time / Laterality Volume Blood specimen 04/17/2020 (specimen) Resulting Agency Comment Home Care Patient Reported LAB - BLOOD ORDERABLES Performing Organization Address City/State/ZIP Code Phon e Number EXTERNAL LAB EXTERNAL LAB External Lab documented in this encounter Visit Diagnoses Diagnosis 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 embolism Paroxysmal atrial fibrillation (H) Atrial fibrillation shelter current use of anticoagulant t herapy documented in this encounter Additional Health Concerns Assessment Noted Time PHQ-9 Depression Total Score: 4 04/12/2019 7:03 AM CDT documented as of this encounter Care Teams Health And Safety Manager Relationship Specialty Start Date End Date Jaiden Holcomb PCP - General Internal Medicine 02/13/2010/03 MD Jayesh [address] [place] [address] [address] [place], [place] [id number] Chasitty Montero MD Dermatology 09/23/14 MD Martha 420 [facility] 98 [place], [place] [address] Johnnie Alcocer MD Surgeon General Surgery 03/23/17 [address] [facility] 300 [place] [address] Danni Marcus, CHANDLER Personal Advocate & 01/09/1901/17 Liaison (PAL) Kyle King Complex 04/23/19 Svetlana Osman Pharmacist Pharmacotherapy 04/23/19 Era, [facility] [address] [place] [address] Haylie Cheung, Pharmacist Pharmacist 09/11/19 [facility] [address] [place] [address] Galdino Valdez MD Assigned PCP 11/10/19 05/23/20 [address] [place] [address] documented as of this encounter
--- OUTSIDE RECORDS SUMMARY | 2022-06-15 12:53 | XMS_ITS | Encounter Summary ---
:1945 Author Organization [place] Address [address] [place] [address] Care Team Providers Name Role Phone Chastity Montero MD Unavailable [phone] Johnnie Alcocer MD Unavailable Danni Marcus RN Unavailable Unavailable Mtm, Ea Complex Unavailable Unavailable Svetlana Osman [facility] Unavailable [phone] Haylie Cheung [facility] Unavailable [phone] Galdino Valdez MD Unavailable Jaiden Holcomb MD Primary Care Provider [phone] Kendall Joseph MD Unavailable Erlinda Barber MD Unavailable Jaiden Holcomb MD Unavailable [phone] Reason for Visit Reason Comments Referral Other ID Encounter Details Date Type Department Care Team Description 04/22/2020 Communication - [facility] Provider, Master pompa; Other [facility] Historical (ID) [id number] [facility] [address] [place] [address] Social History Tobacco Use Types [...] Notes Telephone Encounter - Historical Provider - 04/23/2020 10:31 AM CDT Date: 04/28/2020 Status: Ba Time: 11:00 AM Length: 30 Visit Type: OFFICE VISIT [[id number]] Copay: $0.00 Provider: Ruth John MD Telephone Encounter - Araceli Major RN - 04/23/2020 10:19 AM CDT Please schedule in clinic with Dr John. First available. Telephone Encounter - Historical Provider - 04/22/2020 10:20 PM CDT ID team Please review and advise on scheduling. In person? Video? W/ whom? Authorizing: Kajal Huggins MD in [facility] Referral: [id number] (Pending Review) ? 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 John has seen before. ? Osteomyelitis with worsening ulcer left IT. MRI ordered. Deep tissue cultures sent. Previously unable to do closure per plastic surgery. I am considering referral to hyperbarics at [facility] to combine with appropriate antibiotic treatment. documented in this encounter Plan of Treatment Upcoming Encounters Date Type Specialty Care Team Description 11/15/2022 Virtual Visit Pharm Haylie Gonzalez, [facility] 14[address] [facility] [place] [id number] (Wo rk) 11/15/2022 Virtual Visit IM/Peds Yane Barraza MD [address] [place] [address] [place] [id number] (Wo rk) 03/03/2023 Virtual Visit Neurology Erlinda Barber MD [address] [place] [address] 295 [place], [place] [address] (Wo rk) documented as of this encounter Visit Diagnoses Not on filedocumented in this encounter Additional Health Concerns Assessment Noted Time PHQ-9 Depression Total Score: 4 04/12/2019 7:03 AM CDT documented as of this encounter Care Teams Equipment Application Specialist Relationship Specialty Start Date End Date Jaiden Holcomb PCP - General Internal Medicine 02/13/2010/03 MD Jayesh [address] [place] [address] [place] [id number] Chastity Montero MD Dermatology 09/23/14 420 [facility] 98 [place], [place] [address] Johnnie Alcocer MD Surgeon General Surgery 03/23/[address] [place], [place] [address] Danni Marcus, RN Personal Advocate & 01/09/1901/17 Liaison (PAL) Fernando, Ea Complex 04/23/19 Svetlana Osman, Pharmacist Pharmacotherapy 04/23/19 [facility] [address] [place], [place] [phone] Haylie Cheung, Pharmacist Pharmacist 09/11/19 [facility] [address] [place], [place] [id number] Galdino Valdez MD Assigned PCP 11/10/19 05/23/20 [address] [place], [place] [phone] Opal, Assigned Sleep 05/08/20 03/27/21 Kendall Meehan MD Provider [address] [place], [place] [phone] Erlinda Barber MD Assigned Neuroscience 05/08/20 01/26/21 420 [facility] 295 [place] [address] Jaiden Holcomb Assigned PCP 05/24/20 MD Jayesh [address] [place] [address] documented as of this encounter
--- OUTSIDE RECORDS SUMMARY | 2022-06-15 12:53 | XMS_ITS | Encounter Summary ---
:1945 Author Organization [place] Address [address] [place] [address] Care Team Providers Name Role Phone Chastity Montero MD Unavailable [phone] Johnnie Alcocer MD Unavailable Danni Mracus RN Unavailable Unavailable Mtm, Ea Complex Unavailable Unavailable Svetlana Osman [facility] Unavailable [phone] Haylie Cheung [facility] Unavailable [phone] Galdino Valdez MD Unavailable Jaiden Holcomb MD Primary Care Provider Kendall Joseph MD Unavailable Erlinda Barber MD Unavailable Jaiden Holcomb MD Unavailable Encounter Details Date Type Department Care Team Description 04/06/2020 [facility] Chava Lala h stevenson, delayed; [facility] and MD Braxton Feeding difficulties Bariatrics Care [address] [place] [phone] Social History Tobacco Use Types Packs/Day Years [...] Notes Letter - Historical Provider - 12/31/2020 11:02 PM CDT Letter by Braxton Lala MD at Author: Braxton Lala MD Service: -- Author Type: -- Filed: Encounter Date: 04/06/2020 Status: (Other) April 06, 2020 Charlette Cornelius Trudi Patient: Charlette Brush MR Number: [id number] Date of : 1945 Date of Visit: 04/06/2020 Charlette, Here's a summary of our discussion today on the phone: Results show positive gene for celiac disease but no antibodies. Given your somewhat low gluten dietalready this could account for no antibodies (no stimulation). You were interested in going completely gluten free for the next 6 weeks minimum which I think is a good idea, given your genetic risks/wounds, indefinite gluten free seems reasonable. Zinc levels are nearly in deficient zone, likely due to chronic wound and dietary reasons. Will lookto boost levels w/ 2 weeks of daily supplementation then recommend using every other day for 2 months and rechecking levels along w/ copper levels. Discussed gut repair protocol today: 1. Glutamine 500mg twice daily for 7 days. 2. Fish oil 2 grams daily 3. Continue excellent vitamin D 5000IUs (levels are perfect). 4. Probiotic such as [employer] TherBiotic 25billion CFUs daily for 4-6 weeks then once or twice weeky thereafter for 1-2 months. 5. Good High fiber diet, aiming for 25g/day. 6. You could consider using 1-2 cannister's worth of Oration UltraInflammX 360 the next month: 2 beverages daily (mid morning/mid afternoon) if affordable for you. Recommend recheck Zinc, CRP, copper in 2-3 months. Braxton Lala MD Sincerely, Braxton Lala MD CC No Recipients Progress Notes: Telephone Encounter - Braxton Lala MD - 04/06/2020 9:00 AM CDT 9:00 AM Called to review labs and discuss plan given her chronic wound/inflammation. Results show positive gene for celiac disease but no antibodies. Given her somewhat low gluten diet already this could account for no antibodies and she's interested in going completely gluten free forthe next 6 weeks minimum which I think is a good idea, given her risks/wounds, indefinite gluten free seems reasonable. Zinc levels are nearly in deficient zone, likely due to chronic wound and dietary reasons. Will lookto boost levels w/ 2 weeks of daily supplementation then recommend using every other day for 2 months and rechecking levels along w/ copper levels. Discussed gut repair protocol today: 1. Glutamine 500mg twice daily for 7 days. 2. Fish oil 2 grams daily 3. Continue excellent vitamin D 5000IUs (levels are perfect). 4. Probiotic such as [employer] TherBiotic 25billion CFUs daily for 4-6 weeks then once or twice weeky thereafter for 1-2 months. 5. Good High fiber diet, aiming for 25g/day. 6. You could consider using 1-2 cannister's worth of [employer] UltraInflammX 360 the next month: 2 beverages daily (mid morning/mid afternoon) if affordable for you. Recommend recheck Zinc, CRP, copper in 2-3 months. Braxton Lala MD documented in this encounter Plan of Treatment Upcoming Encounters Date Type Specialty Care Team Description 11/15/2022 Virtual Visit Pharm D Haylie Cheung, [facility] [address] [facility] [address] (Wo rk) 11/15/2022 Virtual Visit IM/Peds Yane Barraza MD [address] [place] [address] [address] [place] [phone] (Wo rk) 03/03/2023 Virtual Visit Neurology Erlinda Barber MD [address] [place] [address] 295 [place], [place] [phone] (Wo rk) documented as of this encounter Visit Diagnoses Diagnosis Wound healing, delayed Open wound(s) (multiple) of unspecified site(s), complicated Feeding difficulties Feeding difficulties and mismanagement documented in this encounter Additional Health Concerns Assessment Noted Time PHQ-9 Depression Total Score: 4 04/12/2019 7:03 AM CDT documented as of this encounter Care Teams Switchman Supervisor Relationship Specialty Start Date End Date Jaiden Holcomb PCP - General Internal Medicine 02/13/2010/03 MD Jayesh [address] [place] [address] [address] [place] [phone] Chastity Montero MD Dermatology 09/23/[address] [place] [address] 98 [place], [place] [address] Johnnie Alcocer MD Surgeon General Surgery 03/23/[address] [place], [place] [address] Danni Marcus, RN Personal Advocate & 01/09/1901/17 Liaison (PAL) Fernando, Ea Complex 04/23/19 Svetlana Osman, Pharmacist Pharmacotherapy 04/23/19 [facility] [address] [place], [place] [phone] Haylie Cheung, Pharmacist Pharmacist 09/11/19 [facility] [address] [place] [address] Galdino Valdez MD Assigned PCP 11/10/19 05/23/20 [address] [place] [address] Opal, Assigned Sleep 05/08/20 03/27/21 Kendall Meehan MD Provider [address] [place] [address] Erlinda Barber MD Assigned Neuroscience 05/08/20 01/26/21 [address] [facility] 295 [place] [address] Jaiden Holcomb Assigned PCP 05/24/20 MD Jayesh 909 [place] [address] documented as of this encounter
--- OUTSIDE RECORDS SUMMARY | 2022-06-15 12:53 | XMS_ITS | Encounter Summary ---
:1945 Author Organization [place] Address [address] [place] [address] Care Team Providers Name Role Phone Chastity Montero MD Unavailable [phone] Johnnie Alcocer MD Unavailable Danni Marcus RN Unavailable Unavailable Mtm, Ea Complex Unavailable Unavailable Svetlana Osman [facility] Unavailable [phone] Haylie Cheung [facility] Unavailable [phone] Galdino Valdez MD Unavailable Jaiden Holcomb MD Primary Care Provider Kendall Joseph MD Unavailable Erlinda Barber MD Unavailable Jaiden Holcomb MD Unavailable [phone] Encounter Details Date Type Department Care Team Description 04/15/2020 [facility] Braxton Lala, [facility] and MD Bariatrics Care [facility] [place] [address] [address] [place], [place] [address] [address] [place], [place] [phone] [address] (Work) [phone] Social History Tobacco Use Types Packs/Day Years [...] Description 11/15/2022 Virtual Visit Pharm D Haylie Chueng, [facility] [address] [facility] [place] [address] (Wo rk) 11/15/2022 Virtual Visit IM/Peds Yane Barraza MD [address] [facility] [place] [phone] (Wo rk) 03/03/2023 Virtual Visit Neurology Erlinda Barber MD 420 [facility] 295 [place] [address] (Wo rk) documented as of this encounter Visit Diagnoses Not on filedocumented in this encounter Additional Health Concerns Assessment Noted Time PHQ-9 Depression Total Score: 4 04/12/2019 7:03 AM CDT documented as of this encounter Care Teams Small Animal Veterinarian Relationship Specialty Start Date End Date Jaiden Holcomb PCP - General Internal Medicine 02/13/2010/03 MD Jayesh [address] [facility] [place] [address] Chastity Montero MD Dermatology 09/23/14 420 [facility] 98 [place] [address] Johnnie Alcocer MD Surgeon General Surgery 03/23/17 [address] [facility] 300 [place], [place] [phone] Danni Marcus, CHANDLER Personal Advocate & 01/09/1901/17 Liaison (PAL) Fernando, Ea Complex 04/23/19 Svetlana Osman, Pharmacist Pharmacotherapy 04/23/19 [facility] [address] [place] [address] Haylie Cheung, Pharmacist Pharmacist 09/11/19 [facility] [address] [place] [address] Galdino Valdez MD Assigned PCP 11/10/19 05/23/20 [address] [place], [place] [phone] Opal, Assigned Sleep 05/08/20 03/27/21 Kendall Meehan MD Provider [address] [place] [address] Erlinda Barber MD Assigned Neuroscience 05/08/20 01/26/21 [address] [facility] [address] [place] [address] Jaiden Holcomb Assigned PCP 05/24/20 MD Jyaesh 909 [place] [address] (work) documented as of this encounter
--- OUTSIDE RECORDS SUMMARY | 2022-06-15 12:53 | XMS_ITS | Encounter Summary ---
:1945 Author Organization [place] Address [address] [place] [address] Care Team Providers Name Role Phone Chastity Montero MD Unavailable [phone] Johnnie Alcocer MD Unavailable Danni Marcus RN Unavailable Unavailable Mtm, Ea Complex Unavailable Unavailable Svetlana Osman [facility] Unavailable [phone] Haylie Cheung [facility] Unavailable [phone] Galdino Valdez MD Unavailable Jaiden Holcomb MD Primary Care Provider [phone] Kendall Joseph MD Unavailable Erlinda Barber MD Unavailable Jaiden Holcomb MD Unavailable [phone] Encounter Details Date Type Department Care Team Description 04/15/2020 [facility] Vascular [address] [place] [address] Social History Tobacco Use Types Packs/Day [...] this encounter Miscellaneous Notes Telephone Encounter - Kenya Carranza RN - 04/17/2020 9:37 AM CDT Pt called to update that she has not heard from Dr. John. Telephone Encounter - Molly Guido - 04/15/2020 9:27 AM CDT Called patient regarding labs results and message from Dr Huggins. Pt was reminded to lets us knowthis Monday if she does not have hear from our clinic or Dr John from Infection disease. Write asked Pt how she is doing; she sates that she is fine, but wound had strong odor and painful.pt was advice to call to clinic if there is a change, also to watch for increasing pain, drainage and temperatureabove 100 F to go to the ER. ----- Message from Cleo Gao RN sent at 04/14/2020 9:07 AM CDT ----- Please update pt. ----- Message ----- From: Kajal Huggins MD Sent: 04/14/2020 8:20 AM CDT To: [facility] Support Pool Please let the patient know her labs a concerning for possible infection. I am asking Dr. John the infectious disease expert to review things and see if she should be seen or if we should start antibiotics. If she doesn't hear from us by Monday she should call. documented in this encounter Plan of Treatment Upcoming Encounters Date Type Specialty Care Team Description 11/15/2022 Virtual Visit Pharm D Haylie Cheung, [facility] [address] [facility] [address] [place] [phone] (Wo rk) 11/15/2022 Virtual Visit [place] [address] [place] [address] [address] [place] [phone] (Wo rk) 03/03/2023 Virtual Visit Neurology Erlinda Barber MD [address] [place] [address] 295 [place], [place] [address] (Wo rk) documented as of this encounter Visit Diagnoses Not on filedocumented in this encounter Additional Health Concerns Assessment Noted Time PHQ-9 Depression Total Score: 4 04/12/2019 7:03 AM CDT documented as of this encounter Care Teams Seafood Preparer Relationship Specialty Start Date End Date Jaiden Holcomb PCP - General Internal Medicine 02/13/2010/03 MD Jayesh [address] [place] [address] [place] [address] Chastity Montero MD Dermatology 09/23/[address] [place] [address] 98 [place], [place] [phone] Johnnie Alcocer MD Surgeon General Surgery 03/23/17 [address] [facility] 300 [place], [place] [address] Danni Marcus, RN Personal Advocate & 01/09/1901/17 Liaison (PAL) Mt[place], Ea Complex 04/23/19 Svetlana Osman, Pharmacist Pharmacotherapy 04/23/19 [facility] [address] [place], [place] [phone] Haylie Cheung, Pharmacist Pharmacist 09/11/19 [facility] [address] [place], [place] [phone] Galdino Valdez MD Assigned PCP 11/10/19 05/23/20 [address] [place] [address] Opal, Assigned Sleep 05/08/20 03/27/21 Kendall Meehan MD Provider [address] [place] [address] Erlinda Barber MD Assigned Neuroscience 05/08/20 01/26/21 [address] [facility] 295 [place] [address] Jaiden Holcomb Assigned PCP 05/24/20 MD Jayesh 909 [place] [address] documented as of this encounter
--- OUTSIDE RECORDS SUMMARY | 2022-06-15 12:53 | XMS_ITS | Encounter Summary ---
:1945 Author Organization [facility] Address [address] [place] [id number] Care Team Providers Name Role Phone Chastity Montero MD Unavailable [phone] Johnnie Alcocer MD Unavailable Danni Marcus RN Unavailable Unavailable [facility], [facility] Unavailable Unavailable Svetlana Osman [facility] Unavailable [phone] Haylie Cheung [facility] Unavailable [phone] Galdino Valdez MD Unavailable Jaiden Holcomb MD Primary Care Provider [place] Joseph MD Unavailable Erlinda Barber MD Unavailable Jaiden Holcomb MD Unavailable Reason for Referral Rehab Therapy Physical Therapy (Routine) - Closed Specialty Diagnoses / Procedures Referred By Contact Refer red To Contact Diagnoses Body mass index (BMI) 50.0-59.9, adult Braxton Lala MD [facility] [address] Referral ID Status Reason Start Date Expiration Date Visits Requ ested Visits Authorized [id number] Closed 01/25/2021 01/25/2022 1 1 Reason for Visit Reason Comments Weight Problem Encounter Details Date Type Department Care Team Description 03/27/2020 Office Visit - [facility] Braxton Lala, Injury of left sciatic nerve, subsequent encounter; [facility] and Body mass index (BMI) 50.0-59.9, adult ( H); [facility] [address] Wound of left buttock, sequela; [place] [address] Hypoalbuminemia; [address] [facility], [place] Lymphedema; [address] [address] Other somatoform disorders; [place], [place] [phone] Feeding diffic ulties; [id number] (Work) CEFERINO on CPAP; [phone] Family history of celiac disease; (Fax) Hypertension, u nspecified type; Thyromegaly Social History Tobacco Use Types Packs/Day Years [...] Sign Reading Time Taken Comments Blood Pressure 130/100 03/27/2020 1:13 PM CDT Pulse - - Temperature - - Respiratory Rate - - Oxygen Saturation - - Inhaled Oxygen Concentration - - Weight 161.9 kg (357 lb) 03/27/2020 1:13 PM CDT Height 170.2 cm (5' 7) 03/27/2020 1:13 PM CDT Body Mass Index 55.91 03/27/2020 1:13 PM CDT documented in this encounter Progress Notes Braxton Lala MD - 03/27/2020 1:45 PM CDT New Medical Weight Management Consult PATIENT: Charlette Brush : 1945 DIRK: 03/27/[address] Lai, I had the pleasure of seeing your patient, Charlette Brush. Full intake/assessment was done to determine barriers to weight loss success and develop a treatment plan. Charlette Brush is a 75 y.o. female interested in treatment of medical problems associated with weight. Vitals: 03/27/20 1313 Weight: (!) 357 lb (161.9 kg) Height: 5' 7 (1.702 m) Body mass index is 55.91 kg/m??. She comes to us today from lymphedema clinic where she's being treated with therapy/compression. She spent a lot of time dwelling on her sciatic nerve injury that evidently was injured, cut, during a procedure around the time of her necrotizing fasciitis episode in 2018. She's been recently evaluated by Neurology and found to have an EMG showing Interpretation: This is an abnormal but limited study. [...] distal muscles innervated by the sciatic nerve. This is poor prognostic indicator. Furthermore, her chronic wound issues have been slow to heal and she feels frustrated by clinicians not believing that she follows a high protein diet. Her albumin and prealbumin have been quite low inthe past. Her dietary recall today utilizes both a Romero protein bar with 21g of protein and 15g of fiber, about 180 kcal as well as using Premiere protein shakes to round out her meat/cheese/yogurtand cottage cheese sources of protein throughout the rest of her day. She has an initial protein snack in the AM, then eggs/toast late morning, a mid afternoon protein snack and evening supper with prot ein/vegetables and occasionally a pre bedtime yogurt. Portions sound appropriate but we'll raise awareness for intake by encouraging measurement and journaling. 100g/day goal would be reasonable to start with in her and we'll evaluate any celiac issues given some family history. Her 2007 evaluation was negative for antibodies but she requests a recheck today, which seems reasonable in light of chronic wound/failure to heal. Today we discussed medication tools but she's not in favor of starting any appetite suppressants or crave reduction therapies at this time. Naltrexone may be helpful if she changes her mind given lack of drug interactions and her seizure history. To promote some high quality protein in during the day for her wound I've encouraged a serving or two of bone broth. Her exercise capacity is limited to modest amounts due to disablity/wounds and deconditioning. She requested in home PT referral and I've placed this today to help improve TDEE. Compliance w/ CPAP has been good for her CEFERINO by patient report and loves using my cpap. Of note, on chart review imaging suggested very enlarged thyroid w/ some compressive effects. Last TSH a year ago was 0.76. CT of the head and neck in [place] from 03/15/19: IMPRESSION: CTA Head: Unremarkable vasculature. CTA Neck: 1. Unremarkable vasculature. 2. Marked enlargement of the thyroid gland with heterogeneous enhancement and mild tracheal narrowing. ASSESSMENT: Charlette is a patient with early onset super morbid obesity with significant element of familial/genetic influence and with current health consequences. 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 Charlette Carreon Trudi endorses binging and she has disconnect about past eating behaviors that contributed to weight gain. Dietary recall today sounds like a perfect diet, high in protein, timed well apart from bedsnack that we discussed limiting. Her problem is complicated by strong craving/reward pathways, a binge eating component, impaired metabolic rate, poor lifestyle choices and decreased mobility related to sciatic nerve injury that she states happened when a surgeon cut it and needs AFO/walker for ambulation if going any distance. Recent EMG shows severe sciatic nerve injury. Has had 2 years now of chronic wound issues since compressive injury after being found down in her bathroom reportedly for 3 days after her toilet seat broke, cut her bottom and she laid there Her ability to lose weight is impacted by physical impairment and inability to perceive that food intake is at a level that prevents weight loss. PLAN: Eat breakfast daily, No meal skipping, Keep food diary for 6 weeks, Tentering Machine Feeder visit of education andSleep apnea adherence encouraged Misperception/Metabolic Ancillary testing: Calculated basal energy expenditure at upcoming presser automatic visit. N/A. Food Plan: Accurate food journal and High protein/low carbohydrate. Activity Plan: has [employer], requests home PT so referral placed to optimize balance/arm strength and generate increased metabolic work. Supplementary: N/A. Medication: The patient will begin medication in pursuit of improved medical status as influenced bybody weight. She will start see below, patient deferred medication aids today. Given warfarin and seizure history, naltrexone may be reasonable, GLP1 agonist if covered. Plenity once available may be an option. There is a mutual understanding of the goals and risks of this therapy. The patient is in agreement. She is educated on dosage regimen and possible side effects. Plan: 1. Welcome to the Bariatric Non Surgical Weight loss Program. Your diet recall revealed an excellentamount of protein and we'll look to measure quantities to provide optimal wound healing and appetitecontrol to assist gradual weight reduction. If struggling we can consider meal replacements in the future but cost is a concern. 2. Aiming for 100 grams of protein daily is a good start, 30-35 grams per meal, every 4-5 hours and avoiding any snacks after supper. Hydrating well with 80 oz of water daily to prevent dizziness and adequate hydration as a minimum. Measure. 3. You declined weight loss medication today but [...] so I'd avoid these in your case. 4. Intake labs can be done anytime. Chart review showed no gluten antibodies back in 2007 but you wished to re-evaluated. We'll check minerals and vitamins as well for optimal healing if any deficiencies are found. I'll update you about a week out from your lab results 5. Referral for Home Health PT to help upper body strength conditioning and balance given some of the sciatic nerve damage/limitations and foot drop issues you've dealt with. Aim for at least 10 minutes of exercise daily. 10 minute bouts of exercise become cumulative throughout the day. Continue peddler. 6. Follow up with presser automatic and recheck with me a month afterwards (video is fine). 7. Try 8-16 oz a day of bone broth daily for this month. 8. Thyroid studies ordered given some enlargement last year on neck CT and edema/weight/wound healing issues. Orders Placed This Encounter Procedures ??? Celiac(Gluten)Antibody Panel ??? HLA DQB1 for Celiac Disease ??? C-Reactive Protein Standing Status: Future Number of Occurrences: 1 Standing Expiration Date: 07/25/2020 ??? Vitamin D, Total (25-Hydroxy) No need to be fasting. Standing Status: Future Number of Occurrences: 1 Standing Expiration Date: 07/25/2020 ??? Parathyroid Hormone Intact No need for fasting level. Standing Status: Future Number of Occurrences: 1 Standing Expiration Date: 07/25/2020 ??? Vitamin A (Retinol), Serum or Plasma Standing Status: Future Number of Occurrences: 1 Standing Expiration Date: 06/25/2020 ??? Vitamin B12 No need to be fasting/bariatric patient. Standing Status: Future Number of Occurrences: 1 Standing Expiration Date: 07/25/2020 ??? Vitamin B1 (Thiamine), Whole Blood (VIT B1 WB) Standing Status: Future Number of Occurrences: 1 Standing Expiration Date: 09/23/2020 ??? Ferritin No need for fasting level. Standing Status: Future Number of Occurrences: 1 Standing Expiration Date: 07/25/2020 ??? Zinc, Serum or Plasma Standing Status: Future Number of Occurrences: 1 Standing Expiration Date: 07/25/2020 ??? Cortisol Standing Status: Future Number of Occurrences: 1 Standing Expiration Date: 06/25/2020 ??? Prealbumin ??? Amb Referral to Bariatric Tentering Machine Feeder Referral Priority: Routine Referral Type: Consultation Referral Reason: Evaluation and Treatment Number of Visits Requested: 1 ??? Ambulatory referral to Physical Therapy Referral Priority: Routine Referral Type: Physical Therapy Referral Reason: Evaluation and Treatment Referral Location: [facility] Requested Specialty: Physical Therapy Number of Visits Requested: 1 She has the following co-morbidities: UC SURGERY CO-MORBIDITIES 03/24/2020 How has your weight changed over the last year? Gained How many pounds? 8 I have the following health issues associated with obesity: High Blood Pressure, Sleep Apnea, Lymphedema I have the following symptoms associated with obesity: Lower Extremity Swelling Patient goals reviewed with patient 03/24/2020 I am interested in having a healthier weight to diminish current health problems: Yes I am interested in having a healthier weight in order to prevent future health problems: Yes I am interested in having a healthier weight in order to have a future surgery: No I have the following family history of obesity/being overweight: My mother is overweight, One or more of my siblings are overweight I have the following family history of obesity/being overweight: My mother is overweight, One or more of my siblings are overweight Referring Provider 03/24/2020 Please name the provider who referred you to Medical Weight Management. If you do not know, please answer: I Don't Know. Dr Jhoan Holcomb Weight History Reviewed With Patient 03/24/2020 How concerned are you about your weight? Very Concerned Would you describe your weight gain as gradual? Yes I became overweight: As an Adult The following factors have contributed to my weight gain: Eating Wrong Types of Food, Eating Too Much, Lack of Exercise, Stress My lowest weight since age 19 was: 170 My highest weight since age 19 was: 444 The most weight I have ever lost was: (lbs) 110 Diet Recall Reviewed With Patient 03/24/2020 Do you typically eat breakfast? Yes If you do eat breakfast, what types of food do you eat? Eggs, 1 slice toast, milk, piece of fruit sometimes Do you typically eat lunch? Yes If you do eat lunch, what types of food do you typically eat? Cottage cheese, sliced chicken or turkey, vegetables, vatican citizen yogurt Do you typically eat supper? Yes If you do eat supper, what types of food do you typically eat? Salad with lean meat, mushrooms or grape tomatoes Do you typically eat snacks? No Do you like vegetables? Yes Do you drink water? Yes How many glasses of juice do you drink in a typical day? 0 How many of glasses of milk do you drink in a typical day? 2 If you do drink milk, what type? 1% How many 8oz glasses of sugar containing drinks such as Bautista-Aid/sweet tea do you drink in a day? 0 How many cans/bottles of sugar pop/soda/tea/sports drinks do you drink in a day? 0 How many cans/bottles of sugar pop/soda/tea/sports drinks do you drink in a day? 0 How often do you have a drink of alcohol? Never Eating Habits Reviewed With Patient 03/24/2020 Eats Starches A Few Times a Week Generally, my meals include foods like these: fried meats, brats, burgers, norwegian fries, pizza, cheese, chips, or ice cream. Never Eat fast food (like Optimitive, Bizimply, NUMBER26). Never Buffet Never Watches TV Less Than Weekly Often skip meals, eat at random times, have no regular eating times. Never Grazes Never Eat extra snacks between meals. Never Eat most of my food at the end of the day. Never Eats at Night Never Eat extra snacks to prevent or correct low blood sugar. Never Eat to prevent acid reflux or stomach pain. Never Worry about not having enough food to eat. Never Have you been to the food shelf at least a few times this year? No I eat when I am depressed. Never I eat when I am stressed. Never I eat when I am bored. Never I eat when I am anxious. Never I eat when I am happy or as a reward. Never I feel hungry all the time even if I just have eaten. Never Feeling full is important to me. Never I finish all the food on my plate even if I am already full. Never I can't resist eating delicious food or walk past the good food/smell. Never I eat/snack without noticing that I am eating. Never I eat when I am preparing the meal. Never I eat more than usual when I see others eating. Never I have trouble not eating sweets, ice cream, cookies, or chips if they are around the house. Never I think about food all day. Never What foods, if any, do you crave? None Activity/Exercise History Reviewed With Patient 03/24/2020 How much of a typical 12 hour day do you spend sitting? Less Than Half the Day How much of a typical 12 hour day do you spend lying down? Less Than Half the Day How much of a typical day do you spend walking/standing? Less Than Half the Day How many hours (not including work) do you spend on the TV/Video Games/Computer/Tablet/Phone? 2-3 Hours How many times a week are you active for the purpose of exercise? 6-7 Times a Week How many total minutes do you spend doing some activity for the purpose of exercising when you exercise? More Than 30 Minutes. Of note, patient very winded even walking back from waiting room today. 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 Binge eating 07/10/2011 ??? Cataract 07/15/2010 Last Assessment & Plan: Followed by Opthamology-considering cataract surgery. Patient has appointment with Retina Specialist at [facility] on 01/11. 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 Cautioned patient she should not be driving. ??? Cellulitis left lower extremity and multiple skin wounds ??? Cortical age-related cataract, both eyes 10/02/2018 ??? Eczema 10/06/2011 Overview: Derm at [facility] ??? Encounter for screening for cardiovascular disorders 08/26/2009 ??? Fall 10/18/2017 ??? Hx pulmonary embolism ??? Hypertension ??? [...] & Plan: Appointment with Retina Specialist at [facility] on 01/11/19. ??? Morbid obesity (H) ??? Myopia 07/15/2010 ??? Necrotizing fasciitis (H) 10/28/2017 ??? Necrotizing soft tissue infection debridement 10/18/17 ??? 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 Paroxysmal atrial fibrillation (H) 04/23/2019 ??? [...] Referral placed for Dr. Kajal Huggins at [facility] in [place] per patient request. She has contact i ??? Seizure (H) 03/15/2019 Last Assessment & [...] and confirm.) ??? Weakness left lower limb Work/Social History Reviewed With Patient 03/24/2020 My employment status is: Retired What is your marital status? Single Do you have children? Yes If you have children, are they overweight? Yes Who do you live with? No one Who does the food shopping? [employer],, neighbor occasionall Mental Health History Reviewed With Patient 03/24/2020 Have you ever been physically or sexually abused? No If yes, do you feel that the abuse is affecting your weight? N/A How often in the past 2 weeks have you felt little interest or pleasure in doing things? Not at all Over the past 2 weeks how often have you felt down, depressed, or hopeless? Not at all Sleep History Reviewed With Patient 03/24/2020 How many hours do you sleep at night? 8 Do you think that you snore loudly or has anybody ever heard you snore loudly (louder than talking or so loud it can be heard behind a shut door)? Yes. Uses cpap. Has anyone seen or heard you stop breathing during your sleep? Yes Do you often feel tired, fatigued, or sleepy during the day? No Do you have a TV/Computer or other screens in your bedroom? No MEDICATIONS: Current Outpatient Medications Medication Sig Dispense Refill ??? acetaminophen (TYLENOL) 325 MG tablet Take 975 mg by mouth every 8 (eight) hours as needed for pain. ??? ascorbic acid, vitamin C, (VITAMIN C) 500 MG tablet Take 500 mg by mouth. ??? atenolol (TENORMIN) 25 MG tablet Take 25 mg by mouth 2 (two) times a day. ??? cetirizine (ZYRTEC) 10 MG tablet Take 10 mg by mouth 2 (two) times a day. ??? cholecalciferol, vitamin D3, 500 unit Take 200 Units by mouth. ??? desoximetasone (TOPICORT) 0.05 % Gel Apply twice daily as needed to arms and legs ??? ferrous sulfate 325 (65 FE) MG tablet Take 325 mg by mouth. ??? hydroCHLOROthiazide (HYDRODIURIL) 12.5 MG tablet Take 12.5 mg by mouth. ??? hydrocortisone 2.5 % ointment Apply topically 2 (two) times a day. ??? levETIRAcetam (KEPPRA) 500 MG tablet Take 500 mg by mouth 2 (two) times a day. ??? losartan (COZAAR) 50 MG tablet Take 50 mg by mouth daily. ??? fifheynuxkjb-rmxmebdx-ygogqt (CEROVITE SENIOR) tablet Take 1 tablet by mouth at bedtime. ??? nystatin (MYCOSTATIN) cream Apply topically. ??? sodium hypochlorite (DAKIN'S, HALF-STRENGTH,) external solution Irrigate with as directed daily. ??? triamcinolone (KENALOG) 0.1 % ointment Apply topically. ??? warfarin (COUMADIN) 10 MG tablet Take 10 mg by mouth daily. Current Facility-Administered Medications Medication Dose Route Frequency Provider Last Rate Last Dose ??? lidocaine 2 % jelly (XYLOCAINE) Topical PRN Patience Toussaint NP ALLERGIES: Allergies Allergen Reactions ??? Cephalexin ??? Ciprofloxacin Developed rash while on Cipro and Clindamycin ??? Clindamycin Developed rash while taking Clindamycin and Cipro ??? Lanolin ??? Lisinopril ??? Mupirocin ??? Neomycin ??? Penicillins PHYSICAL EXAM: Vitals: 03/27/20 1313 BP: (!) 130/100 Waist Circumference: Wt Readings from Last 4 Encounters: 03/27/20 (!) 357 lb (161.9 kg) 03/24/20 (!) 357 lb 14.4 oz (162.3 kg) 12/12/19 (!) 353 lb (160.1 kg) 09/10/19 (!) 349 lb 9.6 oz (158.6 kg) A & O x 3 HEENT: NCAT, mucous membranes slightly dry. Thick neck. Respirations unlabored Location of obesity: Mixed Obesity Has AFO on left leg, compression wraps bilateral lower extremities. Wound vac leading to gluteal wound (left covered) with brownish drainage. CV: occ premature beat, regular pulse radially. Pulm: no cough/congestion and moderately deep excursion. No pleuritic pain. FOLLOW-UP: 4 weeks. TIME: 70 min spent on evaluation, management, counseling, education, & motivational interviewingwith greater than 50 % of the total time was spent on counseling and coordinating care Sincerely, Braxton Lala MD documented in this encounter Miscellaneous Notes Letter - Historical Provider - 12/31/2020 10:49 PM CDT Letter by Braxton Lala MD at Author: Braxton Lala MD Service: -- Author Type: -- Filed: Encounter Date: 03/27/2020 Status: (Other) Doris Lai MD [address] [place] [address] March 27, 2020 Patient: Charlette Brush MR Number: [id number] Date of : 1945 Date of Visit: 03/27/[address] Ming MD: Thank you for referring Charlette Brush to me for evaluation. Below are the relevant portions of my assessment and plan of care. If you have questions, please do not hesitate to call me. I look forward to following Charlette along with you. Sincerely, Braxton Lala MD CC No Recipients Braxton Lala MD 03/27/2020 4:15 PM Sign when Signing Visit New Medical Weight Management Consult PATIENT: Charlette Brush : 1945 DIRK: 03/27/[address] Lai, I had the pleasure of seeing your patient, Charlette Brush. Full intake/assessment was done to determine barriers to weight loss success and develop a treatment plan. Charlette Brush is a 75 y.o. female interested in treatment of medical problems associated with weight. Vitals: 03/27/20 1313 Weight: (!) 357 lb (161.9 kg) Height: 5' 7 (1.702 m) Body mass index is 55.91 kg/m??. She comes to us today from lymphedema clinic where she's being treated with therapy/compression. She spent a lot of time dwelling on her sciatic nerve injury that evidently was injured, cut, during a procedure around the time of her necrotizing fasciitis episode in 2018. She's been recently evaluated by Neurology and found to have an EMG showing Interpretation: This is an abnormal but limited study. [...] distal muscles innervated by the sciatic nerve. This is poor prognostic indicator. Furthermore, her chronic wound issues have been slow to heal and she feels frustrated by clinicians not believing that she follows a high protein diet. Her albumin and prealbumin have been quite low inthe past. Her dietary recall today utilizes both a Boxed protein bar with 21g of protein and 15g of fiber, about 180 kcal as well as using Premiere protein shakes to round out her meat/cheese/yogurtand cottage cheese sources of protein throughout the rest of her day. She has an initial protein snack in the AM, then eggs/toast late morning, a mid afternoon protein snack and evening supper with prot ein/vegetables and occasionally a pre bedtime yogurt. Portions sound appropriate but we'll raise awareness for intake by encouraging measurement and journaling. 100g/day goal would be reasonable to start with in her and we'll evaluate any celiac issues given some family history. Her 2007 evaluation was negative for antibodies but she requests a recheck today, which seems reasonable in light of chronic wound/failure to heal. Today we discussed medication tools but she's not in favor of starting any appetite suppressants or crave reduction therapies at this time. Naltrexone may be helpful if she changes her mind given lack of drug interactions and her seizure history. To promote some high quality protein in during the day for her wound I've encouraged a serving or two of bone broth. Her exercise capacity is limited to modest amounts due to disablity/wounds and deconditioning. She requested in home PT referral and I've placed this today to help improve TDEE. Compliance w/ CPAP has been good for her CEFERINO by patient report and loves using my cpap. Of note, on chart review imaging suggested very enlarged thyroid w/ some compressive effects. Last TSH a year ago was 0.76. CT of the head and neck in [place] from 03/15/19: IMPRESSION: CTA Head: Unremarkable vasculature. CTA Neck: 1. Unremarkable vasculature. 2. Marked enlargement of the thyroid gland with heterogeneous enhancement and mild tracheal narrowing. ASSESSMENT: Charlette is a patient with early onset super morbid obesity with significant element of familial/genetic influence and with current health consequences. 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 Charlette Brush endorses binging and she has disconnect about past eating behaviors that contributed to weight gain. Dietary recall today sounds like a perfect diet, high in protein, timed well apart from bedsnack that we discussed limiting. Her problem is complicated by strong craving/reward pathways, a binge eating component, impaired metabolic rate, poor lifestyle choices and decreased mobility related to sciatic nerve injury that she states happened when a surgeon cut it and needs AFO/walker for ambulation if going any distance. Recent EMG shows severe sciatic nerve injury. Has had 2 years now of chronic wound issues since compressive injury after being found down in her bathroom reportedly for 3 days after her toilet seat broke, cut her bottom and she laid there Her ability to lose weight is impacted by physical impairment and inability to perceive that food intake is at a level that prevents weight loss. PLAN: Eat breakfast daily, No meal skipping, Keep food diary for 6 weeks, Tentering Machine Feeder visit of education andSleep apnea adherence encouraged Misperception/Metabolic Ancillary testing: Calculated basal energy expenditure at upcoming presser automatic visit. N/A. Food Plan: Accurate food journal and High protein/low carbohydrate. Activity Plan: has home health company, requests home PT so referral placed to optimize balance/arm strength and generate increased metabolic work. Supplementary: N/A. Medication: The patient will begin medication in pursuit of improved medical status as influenced bybody weight. She will start see below, patient deferred medication aids today. Given warfarin and seizure history, naltrexone may be reasonable, GLP1 agonist if covered. Plenity once available may be an option. There is a mutual understanding of the goals and risks of this therapy. The patient is in agreement. She is educated on dosage regimen and possible side effects. Plan: 1. Welcome to the Bariatric Non Surgical Weight loss Program. Your diet recall revealed an excellentamount of protein and we'll look to measure quantities to provide optimal wound healing and appetitecontrol to assist gradual weight reduction. If struggling we can consider meal replacements in the future but cost is a concern. 2. Aiming for 100 grams of protein daily is a good start, 30-35 grams per meal, every 4-5 hours and avoiding any snacks after supper. Hydrating well with 80 oz of water daily to prevent dizziness and adequate hydration as a minimum. Measure. 3. You declined weight loss medication today but [...] so I'd avoid these in your case. 4. Intake labs can be done anytime. Chart review showed no gluten antibodies back in 2007 but you wished to re-evaluated. We'll check minerals and vitamins as well for optimal healing if any deficiencies are found. I'll update you about a week out from your lab results 5. Referral for Home Health PT to help upper body strength conditioning and balance given some of the sciatic nerve damage/limitations and foot drop issues you've dealt with. Aim for at least 10 minutes of exercise daily. 10 minute bouts of exercise become cumulative throughout the day. Continue peddler. 6. Follow up with presser automatic and recheck with me a month afterwards (video is fine). 7. Try 8-16 oz a day of bone broth daily for this month. 8. Thyroid studies ordered given some enlargement last year on neck CT and edema/weight/wound healing issues. Orders Placed This Encounter Procedures ? Celiac(Gluten)Antibody Panel ? HLA DQB1 for Celiac Disease ? C-Reactive Protein Standing Status: Future Number of Occurrences: 1 Standing Expiration Date: 07/25/2020 ? Vitamin D, Total (25-Hydroxy) No need to be fasting. Standing Status: Future Number of Occurrences: 1 Standing Expiration Date: 07/25/2020 ? Parathyroid Hormone Intact No need for fasting level. Standing Status: Future Number of Occurrences: 1 Standing Expiration Date: 07/25/2020 ? Vitamin A (Retinol), Serum or Plasma Standing Status: Future Number of Occurrences: 1 Standing Expiration Date: 06/25/2020 ? Vitamin B12 No need to be fasting/bariatric patient. Standing Status: Future Number of Occurrences: 1 Standing Expiration Date: 07/25/2020 ? Vitamin B1 (Thiamine), Whole Blood (VIT B1 WB) Standing Status: Future Number of Occurrences: 1 Standing Expiration Date: 09/23/2020 ? Ferritin No need for fasting level. Standing Status: Future Number of Occurrences: 1 Standing Expiration Date: 07/25/2020 ? Zinc, Serum or Plasma Standing Status: Future Number of Occurrences: 1 Standing Expiration Date: 07/25/2020 ? Cortisol Standing Status: Future Number of Occurrences: 1 Standing Expiration Date: 06/25/2020 ? Prealbumin ? Amb Referral to Bariatric Tentering Machine Feeder Referral Priority: Routine Referral Type: Consultation Referral Reason: Evaluation and Treatment Number of Visits Requested: 1 ? Ambulatory referral to Physical Therapy Referral Priority: Routine Referral Type: Physical Therapy Referral Reason: Evaluation and Treatment Referral Location: [facility] Requested Specialty: Physical Therapy Number of Visits Requested: 1 She has the following co-morbidities: UC SURGERY CO-MORBIDITIES 03/24/2020 How has your weight changed over the last year? Gained How many pounds? 8 I have the following health issues associated with obesity: High Blood Pressure, Sleep Apnea, Lymphedema I have the following symptoms associated with obesity: Lower Extremity Swelling Patient goals reviewed with patient 03/24/2020 I am interested in having a healthier weight to diminish current health problems: Yes I am interested in having a healthier weight in order to prevent future health problems: Yes I am interested in having a healthier weight in order to have a future surgery: No I have the following family history of obesity/being overweight: My mother is overweight, One or more of my siblings are overweight I have the following family history of obesity/being overweight: My mother is overweight, One or more of my siblings are overweight Referring Provider 03/24/2020 Please name the provider who referred you to Medical Weight Management. If you do not know, please answer: I Don't Know. Dr Jhoan Holcomb Weight History Reviewed With Patient 03/24/2020 How concerned are you about your weight? Very Concerned Would you describe your weight gain as gradual? Yes I became overweight: As an Adult The following factors have contributed to my weight gain: Eating Wrong Types of Food, Eating Too Much, Lack of Exercise, Stress My lowest weight since age 19 was: 170 My highest weight since age 19 was: 444 The most weight I have ever lost was: (lbs) 110 Diet Recall Reviewed With Patient 03/24/2020 Do you typically eat breakfast? Yes If you do eat breakfast, what types of food do you eat? Eggs, 1 slice toast, milk, piece of fruit sometimes Do you typically eat lunch? Yes If you do eat lunch, what types of food do you typically eat? Cottage cheese, sliced chicken or turkey, vegetables, vatican citizen yogurt Do you typically eat supper? Yes If you do eat supper, what types of food do you typically eat? Salad with lean meat, mushrooms or grape tomatoes Do you typically eat snacks? No Do you like vegetables? Yes Do you drink water? Yes How many glasses of juice do you drink in a typical day? 0 How many of glasses of milk do you drink in a typical day? 2 If you do drink milk, what type? 1% How many 8oz glasses of sugar containing drinks such as Bautista-Aid/sweet tea do you drink in a day? 0 How many cans/bottles of sugar pop/soda/tea/sports drinks do you drink in a day? 0 How many cans/bottles of sugar pop/soda/tea/sports drinks do you drink in a day? 0 How often do you have a drink of alcohol? Never Eating Habits Reviewed With Patient 03/24/2020 Eats Starches A Few Times a Week Generally, my meals include foods like these: fried meats, brats, burgers, norwegian fries, pizza, cheese, chips, or ice cream. Never Eat fast food (like McDonalds, Burger Serge, TrackerSphereo Nunez). Never Buffet Never Watches TV Less Than Weekly Often skip meals, eat at random times, have no regular eating times. Never Grazes Never Eat extra snacks between meals. Never Eat most of my food at the end of the day. Never Eats at Night Never Eat extra snacks to prevent or correct low blood sugar. Never Eat to prevent acid reflux or stomach pain. Never Worry about not having enough food to eat. Never Have you been to the food shelf at least a few times this year? No I eat when I am depressed. Never I eat when I am stressed. Never I eat when I am bored. Never I eat when I am anxious. Never I eat when I am happy or as a reward. Never I feel hungry all the time even if I just have eaten. Never Feeling full is important to me. Never I finish all the food on my plate even if I am already full. Never I can't resist eating delicious food or walk past the good food/smell. Never I eat/snack without noticing that I am eating. Never I eat when I am preparing the meal. Never I eat more than usual when I see others eating. Never I have trouble not eating sweets, ice cream, cookies, or chips if they are around the house. Never I think about food all day. Never What foods, if any, do you crave? None Activity/Exercise History Reviewed With Patient 03/24/2020 How much of a typical 12 hour day do you spend sitting? Less Than Half the Day How much of a typical 12 hour day do you spend lying down? Less Than Half the Day How much of a typical day do you spend walking/standing? Less Than Half the Day How many hours (not including work) do you spend on the TV/Video Games/Computer/Tablet/Phone? 2-3 Hours How many times a week are you active for the purpose of exercise? 6-7 Times a Week How many total minutes do you spend doing some activity for the purpose of exercising when you exercise? More Than 30 Minutes. Of note, patient very winded even walking back from waiting room today. 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 PAST MEDICAL HISTORY: Past Medical History: Diagnosis Date ? Acute [...] Patient has appointment with Retina Specialist at [facility] on 01/11. 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 ? Morbid obesity (H) ? [...] Referral placed for Dr. Kajal Huggins at [facility] in [place] per patient request. She has contact i [...] and confirm.) ? Weakness left lower limb Work/Social History Reviewed With Patient 03/24/2020 My employment status is: Retired What is your marital status? Single Do you have children? Yes If you have children, are they overweight? Yes Who do you live with? No one Who does the food shopping? [employer],, neighbor occasionall Mental Health History Reviewed With Patient 03/24/2020 Have you ever been physically or sexually abused? No If yes, do you feel that the abuse is affecting your weight? N/A How often in the past 2 weeks have you felt little interest or pleasure in doing things? Not at all Over the past 2 weeks how often have you felt down, depressed, or hopeless? Not at all Sleep History Reviewed With Patient 03/24/2020 How many hours do you sleep at night? 8 Do you think that you snore loudly or has anybody ever heard you snore loudly (louder than talking or so loud it can be heard behind a shut door)? Yes. Uses cpap. Has anyone seen or heard you stop breathing during your sleep? Yes Do you often feel tired, fatigued, or sleepy during the day? No Do you have a TV/Computer or other screens in your bedroom? No MEDICATIONS: Current Outpatient Medications Medication Sig Dispense Refill ? acetaminophen (TYLENOL) [...] Take 50 mg by mouth daily. ? wshguabtaibx-rspgytoj-bisqwy (CEROVITE SENIOR) tablet Take 1 tablet by mouth at bedtime. ? nystatin (MYCOSTATIN) cream Apply topically. ? sodium hypochlorite (DAKIN'S, HALF-STRENGTH,) external solution Irrigate with as directed daily. ? triamcinolone (KENALOG) 0.1 % ointment Apply topically. ? warfarin (COUMADIN) 10 MG tablet Take 10 mg by mouth daily. Current Facility-Administered Medications Medication Dose Route Frequency Provider Last Rate Last Dose ? lidocaine 2 % jelly (XYLOCAINE) Topical PRN Patience Toussaint NP ALLERGIES: Allergies Allergen Reactions ? Cephalexin ? Ciprofloxacin Developed rash while on Cipro and Clindamycin ? Clindamycin Developed rash while taking Clindamycin and Cipro ? Lanolin ? Lisinopril ? Mupirocin ? Neomycin ? Penicillins PHYSICAL EXAM: Vitals: 03/27/20 1313 BP: (!) 130/100 Waist Circumference: Wt Readings from Last 4 Encounters: 03/27/20 (!) 357 lb (161.9 kg) 03/24/20 (!) 357 lb 14.4 oz (162.3 kg) 12/12/19 (!) 353 lb (160.1 kg) 09/10/19 (!) 349 lb 9.6 oz (158.6 kg) A & O x 3 HEENT: NCAT, mucous membranes slightly dry. Thick neck. Respirations unlabored Location of obesity: Mixed Obesity Has AFO on left leg, compression wraps bilateral lower extremities. Wound vac leading to gluteal wound (left covered) with brownish drainage. CV: occ premature beat, regular pulse radially. Pulm: no cough/congestion and moderately deep excursion. No pleuritic pain. FOLLOW-UP: 4 weeks. TIME: 70 min spent on evaluation, management, counseling, education, & motivational interviewingwith greater than 50 % of the total time was spent on counseling and coordinating care Sincerely, Braxton Lala MD Patient Instructions - RON - Braxton Lala MD - 03/27/2020 1:45 PM CDT Plan: 1. Welcome to the Bariatric Non Surgical Weight loss Program. Your diet recall revealed an excellentamount of protein and we'll look to measure quantities to provide optimal wound healing and appetitecontrol to assist gradual weight reduction. If struggling we can consider meal replacements in the future but cost is a concern. 2. Aiming for 100 grams of protein daily is a good start, 30-35 grams per meal, every 4-5 hours and avoiding any snacks after supper. Hydrating well with 80 oz of water daily to prevent dizziness and adequate hydration as a minimum. Measure. 3. You declined weight loss medication today but [...] so I'd avoid these in your case. 4. Intake labs can be done anytime. Chart review showed no gluten antibodies back in 2007 but you wished to re-evaluated. We'll check minerals and vitamins as well for optimal healing if any deficiencies are found. I'll update you about a week out from your lab results 5. Referral for Home Health PT to help upper body strength conditioning and balance given some of the sciatic nerve damage/limitations and foot drop issues you've dealt with. Aim for at least 10 minutes of exercise daily. 10 minute bouts of exercise become cumulative throughout the day. Continue peddler. 6. Follow up with presser automatic and recheck with me a month afterwards (video is fine). 7. Try 8-16 oz a day of bone broth daily for this month. 8. Thyroid studies ordered given some enlargement last year on neck CT and edema/weight/wound healing issues. If severe abnormalities, endocrinology follow up may be warranted. Last year's TSH level was normal. What makes a person succeed with dramatic and sustained weight loss? It's being at the right point in your life where you feel the need to lose the weight, not because anyone told you so but because of a voice inside of you that says, I am ready for this. You're now at a point where you may be feeling anxious, irritable and when you look in the mirror you do not recognize the person looking back. Your healthy self is buried somewhere in that reflexion and you want to free it again. This is the sort of motivation that leads to success, and it comes from you. Because the only person that can lose that extra weight is you, I like my patients to focus on the mindset of being in Weight Loss Season. This gives you permission to make the changes necessary to be consistent with the diet/activity and behavior changes that lead to successful, healthy weight loss. Nearly any diet plan can work for weight loss, but keeping it healthy and nutrient based to prevent deficiencies/hair loss/fatigue or irritability is vital. If you have a plan you want to try, we'll work with you to make sure no adjustments are needed to keep you healthy through your weight loss seasonand working with our Bariatric Dieticians you'll be given expert guidance to customize your diet plan to suit your particular needs. If you don't have your own ideas in mind, we are always happy to suggest well researched and validated plans that provide enough food to prevent hunger but still tap into your excess fat reserves and lose weight in a sustainable fashion. There is great evidence that lean protein/healthy fat intake with good fiber intake while minimizing simple starches/carbs produces reliable/sustainable weight loss in most people. But some feel more connected to an intermittent fasting/fast mimicking or ketogenic diet. These protocols can be hard for many to stick with and that's why we prefer the protein/healthy fat focused diets but if these alternative strategies appeal to you, we can work with you to optimize your knowledge and results with these tools. Losing weight is a temporary commitment, but you need to be All In to have a good weight loss season. To avoid frustration, you have to be willing to be on track 19 out of 20 days or even better thanthat. But, weight loss season is generally only 4-8 months in length. After that length of time, it can be hard to maintain a negative calorie balance and our brain, motivations and metabolism will usually bring you to a plateau that cannot be broken in this modern world where other commitments start to take priority. That's when we look to stabilize the weight loss you've achieved. If you've reachedyour goal by that time, fantastic, and job well done. If there is more to go, then after a few months of stabilization, we can usually attack that previous plateau and break into new territory. Because of this time limitation, we want to really get to work right away and get into a sustainableroutine SEDRICK. One of the best predictors of how much weight you're going to lose throughout the season is how much you lose in the first 6 weeks, so prepare well and jump in with both feet. Occasionally, people may feel like they cannot commit fully to the changes necessary and may want tochange one thing at a time and get used to the idea of losing weight. That is OK because that is where they are in their life, and they cannot fully commit for any number of reasons. It's part of that internal motivation and they just haven't reached PRIORTY NUMBER ONE status yet. It's possible thatwhat they need is more time to reach that point and I am always willing to work with people that want to dabble, but understand, the amount of success obtained with half measures, is much less than half results. Behavior Change cannot occur until we prepare our minds, bodies and environment for what is to come, action! As you go through your plan, look for things to keep your motivation rolling. The most successful people have a goal or target/reward that they are working towards. Having a reward that celebrates yournew fitness, mobility and energy is the best sort because it will encourage you to do well with the weight maintenance phase and 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 designer lifestyle changes that promotes keeping the weight off for thelong term. Usually, getting healthier or improving blood tests or losing weight so your clothes fit better is not as internally motivating as having a tangible reward. A good weight loss season reward is one that isn't food based, is affordable, but something special: Something you won't be getting/doing unless you achieve your goal. It???s important to keep to the rule of success: in order to get the reward, your goal MUST be achieved. Write this reward down, where you can look at it daily and keep it in the front of your mind as you go through your weight loss season and it will help keep you on track. Tools that help change behavior are vital for success. The most studied and most supported tool for weight loss is nothing more than writing down your food and weight every day. Every Day. Accurately and completely. When you commit to weight loss season, this information tells you whether you're getting ENOUGH food to fuel your weight loss properly as well as teaches you the interaction between different foods you eat and how your body responds with weight loss. You'll see that sometimes after a heavy workout you don't see the scale move until 2-3 days later. How saltier meals (chili for example) may make you retain water for 4-5 days before you see the weight come off, you'll get used to the mini-plateaus that develop after a good 3-8 lb drop in weight as well as how you break through if you keep working the diet as you should. Weight loss is not a linear process, there are mini ups and downs. Learning how your body loses weight and getting comfortable with that is very rewarding. The act of writing words on paper also solidifies your will power and commitment to the season of weight loss and that by itself changes your brain chemistry/appetite, motivation and prepares you for maximal success. Behavior change is all about getting into a new routine. The old habits and routine have to change because without changing the circumstances of how you gained your weight, it's unlikely you'll enjoy satisfying results. If you have snacking habits, like every time you walk through the kitchen you graba little something, well, that habit has to change and be replaced by a new habit. It can be something as simple as keeping a doodle pad on the counter that you make a few scribbles and then walk through the kitchen having not opened the cupboard, or starting with a glass of water and leaving the kitchen without anything else, or checking your food journal to see how many calories you have left for the day. Boredom is the enemy as are the old habits. Break new ground and try to push those old habitsinto a deep hole. There are apps/counseling options available that can help with some of the day to day urges/behaviors if you're struggling. One commercial product that does a good job is Noom. Unfortunately, there is a subscription fee. Finally, exercise always helps. While not mandatory to lose weight, every little bit helps and exercise has so many other benefits that to not work it into your plan is to miss out on all the mood, sleep, stress and general health benefits that come from making yourself a little short of breath and sweaty at least 3-4 days out of the week. The metabolism and calorie burn benefits aside, almost every chronic ailment in medicine gets better with proper, aerobic exercise. Allow yourself to start slow and let your body prepare itself to accept harder training 4-[address], but start now and commit to a plan. Whether you have the means to hire a link trainer maintenance man, join a gym or just walk out your front door or go down to your basement for a video workout, get into a exercise routine and after 3 weeksof at least 3 times a week exercise you should be at a point where you can slowly start ramping up 10% each week to our goal of at least 150-300minutes weekly of aerobic exercise and at least twice weekly resistance training/strenghtening with weights/bands or body weight exercises. I am a big fan of modifying the free training plan, Couch to 5k, for almost all of my patients. Just type it into [employer] or look it up on your smart phone merary store. To modify the plan, you can use the training plan for whatever aerobic activity you do (bike/treadmill/elliptical/rower/pool/etc). During the jog intervals, you just move a little faster or harder or increase the tension or incline.You use those little intervals to switch up the workout and recruit more muscles and pump the blood a little more and then recover again in the walk intervals by slowing down, decreasing the incline or turning down the tension. 3-4 days a week is not that much to ask and the benefits are enormous. Start slow and develop the base from which you can then build on and reduce the risk of injury. It's much more important 2-4 months from now to be enjoying your exercise then it is to over exert yourselfat the start and hurt yourself. Starting slowly allows your body to accept the training better down the road when the exercise becomes crucial for weight maintenance. Without exercise down the road during your maintenance phase, all this hard work you are about to put in can be undone. It usually takes about 100-300 calories a day of exercise to maintain a weight loss and our focus during weight lossseason is to generate the routine/activities and hobbies that make that enjoyable/sustainable. Thanks for taking this first and most important step in your weight loss season. Commit to it and wewill cheerlead you all the way to success. When things get tough or off track we'll offer guidance and analysis and when you reach your goal we'll celebrate your success. In the end, it is all about your success, your health and what you do with it. Braxton Lala MD [facility] [phone] LEAN PROTEIN SOURCES Getting 20-30 grams of protein, 3 meals daily, is appropriate for most people, some need more but more than about 40 grams per meal is not useful. Ms. Brush, you should get 100g per day, 30-35g per meal. General rule is drinking one ounce of water per gram of protein eaten over the course of the day: 70grams of protein each day, drink 70 oz of water. Protein Source Portion Calories Grams of Protein Nonfat, plain Marshallese yogurt (10 grams sugar or less) 3/4 [...] (broiled, grilled, baked) 3 ounces 100 21 Orient/Tuna (broiled, grilled, baked) 3 ounces 150-180 21 Shrimp, Scallops, Lobster, Crab 3 ounces 100 21 Pork loin, Pork Tenderloin 3 ounces 150 21 Boneless, skinless chicken /turkey breast (broiled, grilled, baked) 3 ounces 120 21 [place], [place], [place], and Venison 3 ounces 120 21 Lean cuts of red meat and pork (sirloin, round, tenderloin, flank, ground 93%-96%) 3 ounces 170 21 Lean or Extra Lean Ground Hasty 1/2 cup 150 20 90-95% Lean Hasty Burger 1 melanie 140-180 21 Low-fat casserole with lean meat 3/4 cup 200 17 Luncheon Meats (turkey, lean ham, roast beef, chicken) 3 ounces 100 21 Egg (boiled, poached, scrambled) 1 Egg 60 7 Egg Substitute 1/2 cup 70 10 Nuts (limit to 1 serving per day) 3 Tbsp. 150 7 Nut [place] (peanut, almond) Limit to 1 serving or less daily 1 Tbsp. 90 4 Soy Burger (varies) 1 90-130 15 Garbanzo, Black, Mena Beans 1/2 cup 110 7 Refried Beans 1/2 cup 100 7 Kidney and Michaels beans 1/2 cup 110 7 Tempeh 3 oz 175 18 Vegan crumbles 1/2 cup 100 14 Tofu 1/2 cup 110 14 [place] (beans and extra lean beef or turkey) 1 cup 200 23 Lentil Stew/Soup 1 cup 150 12 Black Campbell Soup 1 cup 175 12 MEDICATIONS FOR WEIGHT LOSS There are several medications available to assist us in weight loss. By themselves, without compliance to a change in diet and increase in movement/activity these medications are disappointing in theirresults. However, combined with a closely monitored program of diet change and exercise they can be very effective in controlling appetite and boosting initial weight loss. All weight loss medications need continual re-evaluation for efficacy as their side effects and health benefits fail to be worthwhile if a person is not continuing to lose weight or in maintaining their healthy weight. Some weightloss medications are scheduled drugs, meaning there is at least a theoretical possibility for developing addiction to them but in practice this is rare. We do anticipate coming off meds in the future after stabilization of weight loss is assurred. Finally, a tolerance can develop and people???s perceived efficacy of medication can diminish. In communication with your physician, it may be appropriate to intermittently take a break from these medications and then restart again (few weeks off then restart again) if a plateau is reached that cannot be broken through. Each person can respond to a medication differently and to be a good option for you, it will need to be affordable, effective and well tolerated with minimal side effects. In most cases, weight loss progress after one month and three months will be obtained and if a patient is not reaching the satisfactory progress towards weight loss, the medications may be discontinued. The thought is that if a person is taking a weight loss medication and not receiving the potential health benefit of that drug, the side effects are not worthwhile and use should be discontinued. On the flip side, there are many people on some weight loss medications for years because it continues raghavendra an effective tool in their weight management and they are tolerating the medication without any long-term side effects. Each person's response and purpose will be evaluated. PHENTERMINE (Adipex): approved in 1958 for appetite suppression. It has stimulant effects and cannotbe used with Ritalin, Concerta, or other stimulants. Although it is not highly addictive, it's chemically related to amphetamines which are addictive. Occasional dependence can develop, but rarely. Themost common side effects are dry mouth, increased energy and concentration, increased pulse, and constipation. You should not take phentermine if you have glaucoma, hyperthyroidism, or uncontrolled/untreated hypertension or overly anxious. You should stop if dramatic mood swings, severe insomnia, palpations, chest pains, visual changes or if your Blood Pressure is consistently elevated or any time it's over 160/90. It's ok to go off the med for a few weeks and restart if efficacy is wearing off. $24-$30 for 90 tablets at [facility]. Females are required to have reliable control to reducethe risk defects/miscarriage. TOPIRAMATE (Topamax): Anti-seizure medication, also used to prevent migraines and sometimes for moodstabilization. Side effects include paresthesia, glaucoma, altered concentration, attention difficulties, memory and speech problems, metabolic acidosis, depression, increase in body temperature and decrease sweating, risk of kidney stones. Do not take Topamax while taking Depakote as this can cause high ammonia levels. You must have reliable control as Topamax can cause defects. If prolonged use has occurred it should be tapered off slowly to avoid withdrawal issues. Insurance usually covers Topiramate. At higher doses, there may be some confusion/forgetfulness associated with this so we try to limit dose to under 75mg twice daily to reduce this risk. Often covered by insurance as it's used for many reasons. Topamax will cause carbonated beverages to taste bad. A recheck of your kidne y/electrolytes may occur within a few months of starting. QSYMIA (Phentermine + Topamax): See above information about phentermine and Topamax. Most common side effects are paresthesia, dizziness, distortion of taste, insomnia, constipation, and dry mouth. Seeabove descriptions for the two individual agents.Females are required to have reliable controlto reduce the risk defects/miscarriage. $150-$220 per month Liraglutide (Victoza/Saxenda): Part of the family of Glucagon Like Peptide Agonists, liraglutide directly suppresses appetite and is often used by diabetic patients due to decrease liver production of glucose, thereby improving glucose levels. It also slows how quickly the stomach empties. May be hardto get covered for non diabetics and is an injectable medication delivered via a injector pen. It can be very costly without insurance coverage (over $500/month). Small risk for pancreatitis and dose should be held if increased mid abdominal pain/burning. It is not to be used if previous Multiple Endocrine Neoplasia. In rodents, may increase risk of thyroid tumors and not indicated for anyone with hxof medullary thyroid cancer as a result. If changes in voice/swallowing should be discontinued. Reliable control required in women. Contrave (Bupropion/Naltrexone). Synergistic combination of a mild appetite suppressing anti-depressant (Bupropion) whose effects are increased due to interaction with Naltrexone. Naltrexone may have some effects on craving and is often used in addiction medicine to help previous opiate addicts be less prone to relapse as it blocks the action of opiates. Should be stopped if any need for opiate pain medication, surgery or planned procedures where you'll be given sedation/anesthesia. If prolonged userecommend stepping down bupropion over 2-3 weeks to limit any risk of withdrawal issues. Side effects may include dry mouth, increased heart rate, mild elevation in Blood pressure; dizziness, ringing in the ears, anxiety (typically due to bupropion), nausea, constipation, and some get fatigued with naltrexone. About $210 on [employer] for 120 tabs of Contrave, the brand name without insurance coverage. Generic Bupropion 75mg: $25 for 120 tabs, Naltrexone: $55 for 90 tabs without insurance coverage on REMOT[employer]. Cannot be used if /trying to conceive or breast feeding. Plenity: not yet available. 2-3 capsules taken 20 minutes before 2 meals daily provides crystals that expand into a gel that provides a mechanical fullness. Gel mixes with your next meal and increases satisfaction by bulking the meal up to feel bigger than it truly is. Plenity is not absorbed and getspassed through the digestive tract and excreted in stools. May cause some bloating/gas/full feeling as it behaves like a fiber in many ways. Cost not available yet. FDA cleared in September of 2018 but notavailable in stores as of September of 2019. Clearance safety and efficacy data done under Gelesis name. Not appropriate for people with stomach or bowel motility issues as requires you to pass it through digestive tract. On-the-Go Breakfast Ideas As of 2014, the latest research shows what a huge [...] cheese stick -1 Tablespoon natural peanut butter -AI Merchant vegetarian sausage melanie (found in freezer section) -1 slice lowfat cheese -6 oz 2% or lowfat Marshallese yogurt, such as Fage or Oikos. PLUS Whole Grains: Choose??? -1 whole wheat Ugandan muffin -1 whole wheat eliane, half -1/2 [...] orange -1/2 cup strawberries *Adapted from Diabetes Living, fall Ten Breakfasts Under 250 calories: Ms. Brush, Aiming for meals of about 400kcal and 30-35g of protein are the goal so you may need to adjust portions as these may not be satiating for you. Ideally, getting between 350-600 calories (depending on [...] ?? cup shredded cheddar ?? whole grain Ugandan muffin 1 oz [place] escudero 1 tsp margarine spread Four- 225 [...] Fruit smoothie made with 4 oz. nonfat Marshallese yogurt, ?? cup berries, 1 scoop protein [...] slice whole grain toast ?? cup nonfat/lowfat Marshallese yogurt Eight- 250 calories, 18 g protein [...] calories, 20 g protein Grilled ham ???n??? Bahraini: spread 2 tsp light margarine on 1 slice of whole grain bread. Cut bread in half, layer 2 oz deli ham with 1 piece of Bahraini cheese and grill until cheese is melted. [...] oven Nine- 250 calories, 16 g protein Jordanian pizza: one 8?? corn tortilla topped with [...] sauce and a pinch of sesame seeds Example Meal Plan for a 0780-7977 Calorie Diet: In order to fuel your [...] low in olive oil: 90-100 calories. 5oz Marshallese Yogurt (Fage plain classic: ~150 michael) Handful [...] Water Dinner: 325 calories 4oz of fresh, Mayes salmon. Broiled (salt/pepper/dill) for about 8-8.5 minutes [...] your plan execution. 5. Call if problems/concerns. WorkTouch is a great tool to stay in [...] supplement or a Hair and Nail multivitamin. 50 Things to do Instead of Snacking We'll all have urges to snack sometimes. Hunger, mood, stress, boredom and distraction are common triggers so being mindful and thinking about what is driving a particular urge to snack at a particulartime can be helpful for reducing the urge in the future. Remember, the urge to snack doesn't have raghavendra obeyed. The urge exists, but you can watch it pass. Over time, you will get good at the exercise of experiencing an urge, acknowledging it, but letting it pass you by and float away. Until you get there, here are some activities to pass the 3-5 minutes that most urges last. Good hydration is alwayshelpful. If you do struggle with impulse/urge control, consider some therapy based on cognitive behavioral therapy or ACT (Acceptance and Commitment Therapy). Apps/subscriptions like Deliveroo emphasize some of these tools and can be of help for those able to afford the merary/subscription. 1. Imagine the new healthier you 2. Walk around the block 3. Call a friend 4. Make a list of your Top Ten Reasons to Lose Weight 5. Make a To Do list 6. Turn on music and dance 7. Jot a thank you note to someone 8. Go to bed early or take a nap 9. Read a book 10. Blog or journal 11. Give yourself a manicure or pedicure 12. Plan a healthy meal for your family 13. Surf the Internet 14. Finish an unfinished project 15. Walk your dog, pet your cat, feed your fish 16. [place] your teeth 17. Balance your checkbook 18. Say a prayer 19. Chop veggies for later use. 20. Give a massage 21. Clean out a junk drawer 22. Play a game with your kids 23. Try a new route on your walk 24. Drink a glass of water 25. Kiss someone 26. Try on some of your clothes 27. Look at old pictures 28. Rent a video 29. Wash your car 30. Take a hot, soothing bath 31. Update your calendar 32. Work in your yard 33. Start your holiday shopping list 34. Count your blessings 35. Write a letter 36. Fold some laundry 37. Check your e-mail 38. Give your dog a bath 39. Send a birthday card 40. Meditate 41. Hug someone 42. Rearrange some furniture 43. Light a fire or some candles 44. Put your pictures in an album 45. Plan a trip (real or imaginary) 46. Straighten a closet 47. Clean out a files 48. Visit a friend 49. Clean out your trunk 50. Do something nice for someone documented in this encounter Plan of Treatment Upcoming Encounters Date Type Specialty Care Team Description 11/15/2022 Virtual Visit Pharm D Haylie Cheung, [facility] [address] [place] [address] (Wo rk) 11/15/2022 Virtual Visit IM/Peds Yane Barraza MD [address] [place] [address] (Wo rk) 03/03/2023 Virtual Visit Neurology Erlinda Barber MD [address] [facility] [address] [place], [place] [id number] (Wo rk) Scheduled Referrals Name Type Priority Associated Diagnoses Order S chedule Physical Therapy Referral Routine Body mass index (BMI) Or dered: 03/27/2020 Referral 50.0-59.9, adult documented as of this encounter Procedures Procedure Name Priority Date/Time Associated Comments Diagnosis CELIAC (GLUTEN) Routine 03/27/2020 3:18 PM Result s for this ANTIBODY PANEL CDT procedure are in the results section. HLA DQB1 FOR CELIAC Routine 03/27/2020 3:18 PM Re sults for this DISEASE CDT procedure are i n the results section. PREALBUMIN Routine 03/27/2020 3:18 PM Results f or this CDT procedure are i n the results section. documented in this encounter Results Celiac (Gluten) Antibody Panel (03/27/2020 3:18 PM CDT) [facility] Method Time Signature Deamidated Gliadin 1.0 0.0-<7.0 03/31/2020 [facility] Antibody IgA U/mL 12:21 PM CDT [facility] Deamidated Gliadin <0.4 0.0-<7.0 03/31/2020 [facility] Antibody IgG U/mL 12:21 PM CDT [facility] Tissue 1.4 0.0-<7.0 03/31/2020 [facility] Transglutaminase U/mL 12:21 PM CDT [facility] T. Antibody IgG [facility] Tissue 0.8 0.0-<7.0 03/31/2020 [facility] Transglutaminase U/mL 12:21 PM CDT [facility] T. Antibody IgA [facility] Immunoglobulin A 252 65 - 400 03/31/2020 [facility] mg/dL 12:21 PM CDT [facility] Specimen Anatomical Collection Method / Collection Time Recei yudy Time (Source) Location / Volume Laterality Blood specimen Venipuncture / 03/27/2020 3:18 03/27/20 20 6:27 (specimen) Unknown PM CDT PM CDT Narrative [facility] - 03/31/2020 12:21 PM CDT ??< 7 U/mL = Negative ??7-10 U/mL = Equivocal ??> 10 U/mL = Positive Positive results for the tTG and/or glia din antibodies indicate possible celiac disease and a small intestinal biopsy my be indicated. Antibody levels decrease in patients on gluten-free diets; therefor e, negative results do not exclude tomasa c disease. Total serum IgA is measured to identify selective IgA deficiency, which is present in up to 10% of celiac disease patients. Such patients would have ne gative results on IgA assays, but may fuentes ve positive results on IgG antibody assays. Braxton Lala MD LAB - BLOOD ORDERABLES Performing Organization Address City/State/[place] [id number] [place] [address] [address] [place] [address], [facility] HLA DQB1 for Celiac Disease (03/27/2020 3:18 PM CDT) [facility] Method Time Signature Drsso Test SSOP 03/31/2020 [facility] Method 2:24 PM CDT [facility] DQB1* locus DQB1*02 03/31/2020 [facility] 2:24 PM CDT [facility] DQB1* DQB1*05 03/31/2020 [facility] 2:24 PM CDT [facility] DQA1*locus DQA1*01 03/31/2020 [facility] 2:24 PM CDT [facility] DQA1* DQA1*05 03/31/2020 [facility] 2:24 PM CDT [facility] Drsso Results 03/31/2020 [facility] Comments Below 2:24 PM CDT [facility] Comment: - This patient is positive for DQB1*02 a nd/or DQB1*03(08) - These are equivalent to DQ2 & DQ8, known genetic risk factors for celiac disease -The genetic risk is variable and depends on the specific HLA genotype for the patients - Please correlate these results clinically HLA Molecular Typing performed by SSO, q PCR, SSP, and/or SBT. ??HLA typing reported by molecular methods cannot always be resolved unambiguously; therefore the allele assignment made is the most common based on allele frequencies. ??The NMDP code provides possible rare alleles that cannot be rul ed out or have differences outside the antigen recognition site. Analyte Specific Reagents (ASR) are used in many laboratory tests necessary for standard medical care and generally do no require FDA approval. ??This test was developed and its performance characterist ics determined by [facility]. ??It has not bee n cleared or approved by the U.S. Food and Drug Administration. Performed and/or entered by: [facility] [address] [place] [address] Specimen Anatomical Collection Method / Collection Time Recei yudy Time (Source) Location / Volume Laterality Blood specimen Venipuncture / 03/27/2020 3:18 03/27/20 20 3:18 (specimen) Unknown PM CDT PM CDT Braxton Lala MD LAB - IMMUNOLOGY ORDERABLES Performing Organization Address City/State/ZIP Code Phon e Number [facility] [address] [place] [address] LABORATORIES [address] (ABNORMAL) Prealbumin (03/27/2020 3:18 PM CDT) athologist Signature Prealbumin 13.9 (L) 19.0 - 03/27/2020 [facility] 38.0 mg/dL 7:07 PM CDT [facility] Specimen Anatomical Collection Method / Collection Time Recei yudy Time (Source) Location / Volume Laterality Blood specimen Venipuncture / 03/27/2020 3:18 03/27/20 20 6:27 (specimen) Unknown PM CDT PM CDT Braxton Lala MD LAB - BLOOD ORDERABLES Performing Organization Address City/State/ZIP Code Phon [place] [address] [facility] [address] [facility] documented in this encounter Visit Diagnoses Diagnosis Injury of left sciatic nerve, subsequent encounter Body mass index (BMI) 50.0-59.9, adult Wound of left buttock, sequela Hypoalbuminemia Other disorders of plasma protein metabo lism Lymphedema Other lymphedema Other somatoform disorders Feeding difficulties Feeding difficulties and mismanagement CEFERINO on CPAP Obstructive sleep apnea (adult) (pediatr ic) Family history of celiac disease Family history of other digestive disord ers Hypertension, unspecified type Thyromegaly Goiter, unspecified documented in this encounter Additional Health Concerns Assessment Noted Time PHQ-9 Depression Total Score: 4 04/12/2019 7:03 AM CDT documented as of this encounter Care Teams Aerobics Instructor Relationship Specialty Start Date End Date Jaiden Holcomb PCP - General Internal Medicine 02/13/2010/03 MD Jayesh [address] [place] [address] Chastity Montero MD Dermatology 09/23/14 [address] [facility] [address] [place] [address] Johnnie Alcocer MD Surgeon General Surgery 03/23/[address] [place], [place] [address] Danni Marcus, CHANDLER Personal Advocate & 01/09/1901/17 Liaison (PAL) Fernando, Ea Complex 04/23/19 Svetlana Osman, Pharmacist Pharmacotherapy 04/23/19 [facility] [address] [place] [address] Haylie Cheung, Pharmacist Pharmacist 09/11/19 [facility] [address] [place], [place] [id number] Galdino Valdez MD Assigned PCP 11/10/19 05/23/20 [address] [place], [place] [id number] Opal, Assigned Sleep 05/08/20 03/27/21 Kendall Meehan MD Provider [address] [place] [address] Erlinda Barber MD Assigned Neuroscience 05/08/20 01/26/21 [address] [facility] [address] [place] [address] Jaiden Holcomb Assigned PCP 05/24/20 MD Jayesh [address] [place] [address] documented as of this encounter
--- OUTSIDE RECORDS SUMMARY | 2022-06-15 12:53 | XMS_ITS | Encounter Summary ---
:1945 Author Organization [place] Address [address] [place] [address] Care Team Providers Name Role Phone Chastity Montero MD Unavailable [phone] Johnnie Alcocer MD Unavailable Danni Marcus RN Unavailable Unavailable Mtm, Ea Complex Unavailable Unavailable Svetlana Osman [facility] Unavailable [phone] Haylie Cheung [facility] Unavailable [phone] Galdino Valdez MD Unavailable Jaiden Holcomb MD Primary Care Provider [phone] Kendall Joseph MD Unavailable Erlinda Barber MD Unavailable Jaiden Holcomb MD Unavailable [phone] Encounter Details Date Type Department Care Team Description 03/27/2020 Ambulatory - [facility] Body mass index (BMI) 50.0-59.9, adult (H); [facility] Injury of l eft sciatic nerve, subsequent encounter; Laboratory Other somatoform disorders; [address] Wound of left buttock, sequela; [address] Feeding difficulties; [place], [place] Lymphedema [address] Social History Tobacco Use Types Packs/Day [...] Haylie Cheung, [facility] [address] [place] [address] (Wo rk) 11/15/2022 Virtual Visit IM/Peds Yane Barraza MD [address] [facility] [address] [place] [phone] (Wo rk) 03/03/2023 Virtual Visit Neurology Erlinda Barber MD [address] [facility] 295 [place] [address] (Wo rk) documented as of this encounter Procedures Procedure Name Priority Date/Time Associated Comments Diagnosis 1,25 DIHYDROXYVITAMIN D Routine 03/27/2020 3:18 R esults for this PM CDT procedure are i n the results section. ZINC Routine 03/27/2020 3:18 Results for this PM CDT procedure are i n the results section. VITAMIN B1 WHOLE BLOOD Routine 03/27/2020 3:18 Re sults for this PM CDT procedure are i n the results section. VITAMIN A Routine 03/27/2020 3:18 Results for this PM CDT procedure are i n the results section. PARATHYROID HORMONE Routine 03/27/2020 3:18 Resul ts for this INTACT PM CDT procedure are i n the results section. FERRITIN Routine 03/27/2020 3:18 Results for this PM CDT procedure are i n the results section. CRP INFLAMMATION Routine 03/27/2020 3:18 Results for this PM CDT procedure are i n the results section. CORTISOL Routine 03/27/2020 3:18 Results for this PM CDT procedure are i n the results section. VITAMIN B12 Routine 03/27/2020 3:18 Results for this PM CDT procedure are i n the results section. documented in this encounter Results Cortisol (03/27/2020 3:18 PM CDT) athologist Signature Cortisol 9.4 ug/dL 03/27/[address] [facility] 11:16 PM CDT [facility] Specimen Anatomical Collection Method / Collection Time Recei yudy Time (Source) Location / Volume Laterality Blood specimen Venipuncture / 03/27/2020 3:18 03/27/20 20 8:44 (specimen) Unknown PM CDT PM CDT Narrative [facility] - 03/27/2020 11:16 PM CDT Reference Range: a.m.: 7-25 ug/dL p.m.: 2-13 ug/dL Braxton Lala MD LAB - BLOOD ORDERABLES Performing Organization Address City/State/ZIP Code Phon e Number [facility] [place] [id number] [place] [address] [place] [address], [facility] Zinc (03/27/2020 3:18 PM CDT) P athologist Signature Zinc, 60.1 60.0 - 03/31/2020 [facility] Serum/Plasma 120.0 1:02 PM CDT LABORATORIES ug/dL Comment: INTERPRETIVE INFORMATION: Zinc, Serum or Plasma Elevated results may be due to skin or c ollection-related contamination, including the use of a no ncertified metal-free collection/transport tube. If contaminat ion concerns exist due to elevated levels of serum/plasma zinc, co nfirmation with a second specimen collected in a certified metal- free tube is recommended. Circulating zinc concentrations are depe ndent on albumin status and are depressed with malnutrition. ??Z inc may also be lowered with infection, inflammation, stress, or al contraceptives, and . ??Zinc may be elevated with z inc supplementation or fasting. ??Elevated zinc concentrations may interfere with copper absorption. Test developed and characteristics deter mined by [employer]. See Compliance Statement B : [email or web address]/CS Performed By: [facility] [address] [place] [id number] Steam Clean Machine Operator: Bonny Shannon MD Specimen Anatomical Collection Method / Collection Time Recei yudy Time (Source) Location / Volume Laterality Blood specimen VENOUS STRUCTURE / Venipuncture / 03/27/2020 3:18 2:33 (specimen) Unknown Unknown PM CDT AM CDT Braxton Lala MD LAB - BLOOD ORDERABLES Performing Organization Address City/State/ZIP Code Phon e Number [facility] [place], [place] [phone] [place] [phone] [employer] [address] [place] [phone] Ferritin (03/27/2020 3:18 PM CDT) athologist Signature Ferritin 130 10 - 130 03/27/[address] [facility] ng/mL 7:36 PM CDT [facility] Specimen Anatomical Collection Method / Collection Time Recei yudy Time (Source) Location / Volume Laterality Blood specimen Venipuncture / 03/27/2020 3:18 03/27/20 20 6:27 (specimen) Unknown PM CDT PM CDT Braxton Lala MD LAB - BLOOD ORDERABLES Performing Organization Address City/State/ZIP Code Phon e Number [facility] [place] [place] [address] [place] [id number] [id number] [place] [address] LABORATORY Vitamin B1 whole blood (03/27/2020 3:18 PM CDT) athologist Signature Vitamin B1 137 70 - 180 04/01/2020 [facility] Whole Blood nmol/L 4:25 AM CDT LABORATORIES Level Comment: INTERPRETIVE INFORMATION: Vitamin B1, Wh ole Blood This assay measures the concentration of thiamine diphosphate (TDP), the primary active form of vitami n B1. Approximately 90 percent of vitamin B1 present in whole b lood is TDP. Thiamine and thiamine monophosphate, which comprise t he remaining 10 percent, are not measured. Test developed and characteristics deter mined by [employer]. See Compliance Statement B : [employer]/CS Performed By: [facility] [address] [place] [id number] [employer] Machine Operator: Bonny Shannon MD Specimen Anatomical Collection Method / Collection Time Recei yudy Time (Source) Location / Volume Laterality Blood specimen Venipuncture / 03/27/2020 3:18 03/30/20 4:22 (specimen) Unknown PM CDT AM CDT Braxton Lala MD LAB - BLOOD ORDERABLES Performing Organization Address City/State/ZIP Code Phon e Number [facility] [email or web address] [place], [place] [phone] [place] [phone] [email or web address] [address] [phone] Vitamin B12 (03/27/2020 3:18 PM CDT) athologist Signature Vitamin B12 624 213 - 816 03/27/[address] [facility] pg/mL 7:27 PM CDT [facility] Specimen Anatomical Collection Method / Collection Time Recei yudy Time (Source) Location / Volume Laterality Blood specimen VENOUS STRUCTURE / Venipuncture / 03/27/2020 3:18 6:27 (specimen) Unknown Unknown PM CDT PM CDT Braxton Lala MD LAB - BLOOD ORDERABLES Performing Organization Address City/State/[place] [address] [facility] [phone] [place] [address] LABORATORY Vitamin A (03/27/2020 3:18 PM CDT) Analysis Performed At Patho logist Time Signature Vitamin A 0.37 0.30 - 03/31/2020 [facility] 1.20 mg/L 11:58 AM CDT LABORATORIES Vitamin A 0.09 0.00 - 03/31/2020 [facility] (Retinyl 0.10 mg/L 11:58 AM CDT LABORATORIES Palmitate) Vitamin A Normal 03/31/2020 [facility] Interp 11:58 AM CDT LABORATORIES Comment: Test developed and characteristics deter mined by [employer]. See Compliance Statement B : [employer]/CS Performed By: [facility] [address] [place] [id number] [employer] Machine Operator: Bonny Shannon MD Specimen Anatomical Collection Method / Collection Time Recei yudy Time (Source) Location / Volume Laterality Blood specimen Venipuncture / 03/27/2020 3:18 03/30/20 20 3:19 (specimen) Unknown PM CDT AM CDT Braxton Lala MD LAB - BLOOD ORDERABLES Performing Organization Address City/State/ZIP Code Phon e Number [email or web address] [email or web address] [place], [place] [phone] [place] [phone] [phone] Parathyroid Hormone Intact (03/27/2020 3:18 PM CDT) P athologist Signature Parathyroid 75 10 - 86 03/27/2020 [facility] Hormone Intact pg/mL 7:00 PM CDT [facility] Specimen Anatomical Collection Method / Collection Time Recei yudy Time (Source) Location / Volume Laterality Blood specimen VENOUS STRUCTURE / Venipuncture / 03/27/2020 3:18 6:27 (specimen) Unknown Unknown PM CDT PM CDT Braxton Lala MD LAB - BLOOD ORDERABLES Performing Organization Address City/State/ZIP Code Phon e Number [facility] [place] [address] [phone] [address] [facility] 1,25 Dihydroxyvitamin D (03/27/2020 3:18 PM CDT) athologist Signature Vitamin D, 47.0 30.0 - 03/30/2020 [facility] Total 80.0 ng/mL 10:29 AM CDT [facility] (25-Hydroxy) [facility] Specimen Anatomical Collection Method / Collection Time Recei yudy Time (Source) Location / Volume Laterality Blood specimen Venipuncture / 03/27/2020 3:18 03/27/20 20 6:27 (specimen) Unknown PM CDT PM CDT [facility] - 03/30/2020 10:29 AM CDT Deficiency <10.0 ng/mL Insufficiency 10.0-29.9 ng/mL Sufficiency 30.0-80.0 ng/mL Toxicity (possible) >100.0 ng/mL Braxton Lala MD LAB - BLOOD ORDERABLES Performing Organization Address City/State/ZIP Code Phon e Number [facility] [place] [phone] [place] [address], [facility] (ABNORMAL) CRP inflammation (03/27/2020 3:18 PM CDT) athologist [facility] CRP 2.8 (H) 0.0 - 0.8 03/27/2020 [facility] mg/dL 9:55 PM CDT [facility] Specimen Anatomical Collection Method / Collection Time Recei yudy Time (Source) Location / Volume Laterality Blood specimen Venipuncture / 03/27/2020 3:18 03/27/20 20 8:44 (specimen) Unknown PM CDT PM CDT Braxton Lala MD LAB - BLOOD ORDERABLES Performing Organization Address City/State/ZIP Code Phon e Number [facility] [place] [address] [facility] [address] [place] [address] [facility] documented in this encounter Visit Diagnoses Diagnosis Body mass index (BMI) 50.0-59.9, adult Injury of left sciatic nerve, subsequent encounter Other somatoform disorders Wound of left buttock, sequela Feeding difficulties Feeding difficulties and mismanagement Lymphedema Other lymphedema documented in this encounter Additional Health Concerns Assessment Noted Time PHQ-9 Depression Total Score: 4 04/12/2019 7:03 AM CDT documented as of this encounter Care Teams Meter Repair Shop Supervisor Relationship Specialty Start Date End Date Jaiden Holcomb PCP - General Internal Medicine 02/13/2010/03 MD Jayesh [address] [facility] [place] [address] Chastity Montero MD Dermatology 09/23/14 [address] [facility] [address] [place], [place] 69[address] Johnnie Alcocer MD Surgeon General Surgery 03/23/17 [address] [facility] [address] [place], [place] [phone] Danni Marcus, CHANDLER Personal Advocate & 01/09/1901/17 Liaison (PAL) [place], Ea Complex 04/23/19 Svetlana Osman, Pharmacist Pharmacotherapy 04/23/19 [facility] [address] [place] [phone] Haylie Cheung, Pharmacist Pharmacist 09/11/19 [facility] [address] [place] [phone] Galdino Valdez MD Assigned PCP 11/10/19 05/23/20 [address] [place], [place] [phone] Opal, Assigned Sleep 05/08/20 03/27/21 Kendall Meehan MD Provider [address] [place], [place] [address] Erlinda Barber MD Assigned Neuroscience 05/08/20 01/26/21 [address] [facility] 295 [place] [address] Jaiden Holcomb Assigned PCP 05/24/20 MD Jayesh 909 [place], [place] [phone] documented as of this encounter
--- OUTSIDE RECORDS SUMMARY | 2022-06-15 12:53 | XMS_ITS | Encounter Summary ---
:1945 Author Organization [place] Address [address] [place] [address] Care Team Providers Name Role Phone Chastity Montero MD Unavailable [phone] Johnnie Alcocer MD Unavailable Danni Marcus RN Unavailable Unavailable Mtm, Ea Complex Unavailable Unavailable Svetlana Osman [facility] Unavailable [phone] Haylie Cheung [facility] Unavailable [phone] Galdino Valdez MD Unavailable Jaiden Holcomb MD Primary Care Provider [phone] Kendall Joseph MD Unavailable Erlinda Barber MD Unavailable Jaiden Holocmb MD Unavailable [phone] Encounter Details Date Type Department Care Team Description 04/10/2020 [facility] Patience Martinez, [facility] CHANDLER [place] [facility] [address] [place] [address] Social History Tobacco Use Types [...] 05/03/2021 organizations such as pentecostalism groups, unions, [employer] or athletic groups, or school groups? [...] Telephone Encounter - Patience Martinez, RN - 04/10/2020 8:22 AM CDT Called patient and scheduled her to come to the [facility] this afternoon for labs to be drawn. documented in this encounter Plan of Treatment Upcoming Encounters Date Type Specialty Care Team Description 11/15/2022 Virtual Visit Pharm D Haylie Cheung, [facility] [address] [facility] [place] [address] (Wo rk) 11/15/2022 Virtual Visit IM/Peds Yane Barraza MD [address] [facility] [place] [address] (Wo rk) 03/03/2023 Virtual Visit Neurology Erlinda Barber MD [address] [facility] 295 [place] [address] (Wo winter) documented as of this encounter Visit Diagnoses Not on filedocumented in this encounter Additional Health Concerns Assessment Noted Time PHQ-9 Depression Total Score: 4 04/12/2019 7:03 AM CDT documented as of this encounter Care Teams Color Separation Photographer Relationship Specialty Start Date End Date Jaiden Holcomb PCP - General Internal Medicine 02/13/2010/[address]esh [address] [facility] [address] [place] [phone] Chastity Montero MD Dermatology 09/23/14 MD [address] [facility] [address] [place] [address] Johnnie Alcocer MD Surgeon General Surgery 03/23/17 [address] [place], [place] [phone] Danni Marcus, CHANDLER Personal Advocate & 01/09/1901/17 Liaison (PAL) Fernando, Ea Complex 04/23/19 Svetlana Osman, Pharmacist Pharmacotherapy 04/23/19 [facility] [address] [place] [address] Haylie Cheung, Pharmacist Pharmacist 09/11/19 [facility] [address] [facility] [address] [place], [place] [phone] Galdino Valdez MD Assigned PCP 11/10/19 05/23/20 [address] [place], [place] [phone] Opal, Assigned Sleep 05/08/20 03/27/21 Kendall Meehan MD Provider [address] [place] [address] Erlinda Barber MD Assigned Neuroscience 05/08/20 01/26/21 [address] [facility] [address] [place] [address] Jaiden Holcomb Assigned PCP 05/24/20 MD Jayesh 909 [place] [address] documented as of this encounter
--- OUTSIDE RECORDS SUMMARY | 2022-06-15 12:54 | XMS_ITS | Encounter Summary ---
:1945 Author Organization [place] Address [address] [place] [address] Care Team Providers Name Role Phone Chastity Montero MD Unavailable [phone] Johnnie Alcocer MD Unavailable Danni Marcus RN Unavailable Unavailable Mtm, Ea Complex Unavailable Unavailable Svetlana Osman [facility] Unavailable [phone] Haylie Cheung [facility] Unavailable [phone] Galdino Valdez MD Unavailable Jaiden Holcomb MD Primary Care Provider [phone] Reason for Visit Reason Onset Date Comments Home Care/Hospice 03/02/2020 Orders Encounter Details Date Type Department Care Team Description 03/02/2020 [facility] Jaiden Holcomb Home Care/Hospice Clinic Yarelis Mcconnell MD (Orders) [address] [address] [place] [address] [phone] Social History Tobacco Use Types Packs/Day Years [...] organizations such as jehovah's witness groups, unions, fra[employer] or athletic groups, or school groups? How [...] Telephone Encounter - Danni Marcus, RN - 03/02/2020 1:50 PM CDT [place], Physical therapist with [facility] calling for orders for Physical therapy once per week for 4 weeks for gait training, car transfers, therapeutic exercises and a home exercise program. Verbal approval given for orders per protocol. No further questions. Will call back if any other questions or concerns. Ashli Marcus RN documented in this encounter Plan of Treatment Upcoming Encounters Date Type Specialty Care Team Description 11/15/2022 Virtual Visit Pharm D Haylie Cheung, [facility] [address] [facility] [address] [place] [phone] (Lena max) 11/15/2022 Virtual Visit [place] [address] [place] [address] [address] [place] [phone] (Lena max) 03/03/2023 Virtual Visit Neurology Erlinda Barber MD 420 [facility] 295 [place] [address] (Lena max) documented as of this encounter Visit Diagnoses Not on filedocumented in this encounter Additional Health Concerns Assessment Noted Time PHQ-9 Depression Total Score: 4 04/12/2019 7:03 AM CDT documented as of this encounter Care Teams Computer Systems Auditor Relationship Specialty Start Date End Date Jaiden Holcomb PCP - General Internal Medicine 02/13/2010/03 MD Jayesh [address] [facility] [address] [place] [phone] Chastity Montero MD Dermatology 09/23/14 MD Martha [address] [facility] 98 [place], [place] [address] Johnnie Alcocer MD Surgeon General Surgery 03/23/17 [address] [facility] [address] [place], [place] [phone] Danni Marcus, CHANDLER Personal Advocate & 01/09/1901/17 Liaison (PAL) Fernando, Ea Complex 04/23/19 Svetlana Osman Pharmacist Pharmacotherapy 04/23/19 Era, [facility] [address] [place] [phone] Haylie Cheung, Pharmacist Pharmacist 09/11/19 [facility] [address] [place] [address] Galdino Valdez MD Assigned PCP 11/10/19 05/23/20 [address] [place], [place] [phone] documented as of this encounter
--- OUTSIDE RECORDS SUMMARY | 2022-06-15 12:54 | XMS_ITS | Encounter Summary ---
:1945 Author Organization [place] Address [address] [place] [address] Care Team Providers Name Role Phone Chastity Montero MD Unavailable [phone] Johnnie Alcocer MD Unavailable Danni Marcus RN Unavailable Unavailable Mtm, Ea Complex Unavailable Unavailable Svetlana Osman [facility] Unavailable [phone] Haylie Cheung [facility] Unavailable [phone] Galdino Valdez MD Unavailable Jaiden Holcomb MD Primary Care Provider [phone] Encounter Details Date Type Department Care Team Description 03/09/2020 Anticoagulation Therapy [facility] Zhang, 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 embolism; Visit Clinic Yarelis Hwang Paroxysmal atrial fibrillati on (H); [address] [place] MD Jayesh care home current use of anticoagulant t [address] [facility] [address] Social History Tobacco Use Types Packs/Day [...] 05/03/2021 organizations such as presybeterian groups, unions, [employer] or athletic groups, or school groups? [...] encounter Progress Notes Brook Flores RN - 03/09/2020 4:04 PM CDT ANTICOAGULATION MANAGEMENT Patient Name: Charlette Brush Date: 03/09/2020 ASSESSMENT /SUBJECTIVE: Today's INR result of 2.40 is therapeutic. Goal INR of 2.0-3.0 ??? Warfarin dose taken: Warfarin taken as previously instructed ??? Diet: No new diet changes affecting INR ??? Medication changes/ interactions: No new medications/supplements affecting INR ??? Previous INR: Supratherapeutic ??? S/S of bleeding or thromboembolism: No ??? New injury or illness: No ??? Upcoming surgery, procedure or cardioversion: No ??? Additional findings: None PLAN: Spoke with Charlette regarding INR result and instructed: Warfarin Dosing Instructions: Continue your current warfarin dose 5mg Tue/Fri & 10mg AOD Instructed patient to follow up no later than: 2 weeks Left detailed message with recommended recheck date for research home economist Katie Education provided: None required Charlette verbalizes understanding and agrees to warfarin dosing plan. Instructed to call the Anticoagulation Clinic for any changes, questions or concerns. (#[phone]) Brook Flores RN OBJECTIVE: Recent labs: (last 7 days) 03/09/20 1349 INR 2.40* No question data found. 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 Anticoagulation Care Providers Provider Role Specialty Phone number Galdino Valdez MD [facility] [phone] GrahamLucero weller MD Responsible Internal Medicine [phone] Brook De Luna RN, BSN, PHN documented in this encounter Plan of Treatment Upcoming Encounters Date Type Specialty Care Team Description 11/15/2022 Virtual Visit Pharm D Haylie Cheung, [facility] [address] [facility] [place] [address] (Lena max) 11/15/2022 Virtual Visit IM/Peds Yane Barraza MD [address] [facility] [place] [address] (Lena max) 03/03/2023 Virtual Visit Neurology Erlinda Barber MD [address] [facility] 295 [place], [place] [address] (Wo rk) documented as of this encounter Visit Diagnoses Diagnosis 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 embolism Paroxysmal atrial fibrillation (H) Atrial fibrillation watermaster current use of anticoagulant t herapy documented in this encounter Additional Health Concerns Assessment Noted Time PHQ-9 Depression Total Score: 4 04/12/2019 7:03 AM CDT documented as of this encounter Care Teams Forming Machine Adjuster Relationship Specialty Start Date End Date Jaiden Holcomb PCP - General Internal Medicine 02/13/2010/03 MD Jayesh [address] [facility] [address] [place] [phone] Chastity Montero MD Dermatology 09/23/14 MD Martha [address] [facility] 98 [place] [address] Johnnie Alcocer MD Surgeon General Surgery 03/23/[address] [place] [address] Danni Marcus, CHANDLER Personal Advocate & 01/09/1901/17 Liaison (PAL) Fernando, Ea Complex 04/23/19 Svetlana Osman Pharmacist Pharmacotherapy 04/23/19 Era, [facility] [address] [place] [address] Haylie Cheung, Pharmacist Pharmacist 09/11/19 [facility] [address] [place], [place] [id number] Galdino Valdez MD Assigned PCP 11/10/19 05/23/20 [address] [place] [address] documented as of this encounter
--- OUTSIDE RECORDS SUMMARY | 2022-06-15 12:54 | XMS_ITS | Encounter Summary ---
:1945 Author Organization [place] Address [address] [place] [address] Care Team Providers Name Role Phone Chastity Montero MD Unavailable [phone] Johnnie Alcocer MD Unavailable Danni Marcus RN Unavailable Unavailable Mtm, Ea Complex Unavailable Unavailable Svetlana Osman [facility] Unavailable [phone] 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 How [...] encounter Progress Notes Fadumo Davies RN - 03/26/2020 10:18 AM CDT ANTICOAGULATION MANAGEMENT Patient Name: Charlette Brush Date: 03/26/2020 ASSESSMENT /SUBJECTIVE: Today's INR result of 2.2 [...] ??? Additional findings: None PLAN: Spoke with Juanita, home care, regarding INR result and instructed: Warfarin Dosing Instructions: Continue your current warfarin dose 5 mg on /fri and 10 mg all other days Instructed patient to follow up no later than: 3 weeks Orders given to Homecare nurse/facility to recheck Education provided: None required Charlette verbalizes understanding and agrees to warfarin dosing plan. Instructed to call the Anticoagulation Clinic for any changes, questions or concerns. (#[phone]) Fadumo Davies RN OBJECTIVE: Recent labs: (last 7 days) 03/26/20 INR 2.2* No question data found. 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 Anticoagulation Care Providers Provider Role Specialty Phone number Galdino Valdez MD Referring Family Practice [phone] [facility] Responsible Internal Medicine [phone] documented in this encounter Plan of Treatment Upcoming Encounters Date Type Specialty Care Team Description 11/15/2022 Virtual Visit Pharm Haylie Gonzalez, [facility] [address] [facility] [place] [address] (Wo winter) 11/15/2022 Virtual Visit IM/PedYane Muir MD [address] [facility] [place] [address] (Lena max) 03/03/2023 Virtual Visit Neurology Erlinda Barber MD [address] [facility] 295 [place] [address] (Wo rk) documented as of this encounter Procedures Procedure Name Priority Date/Time Associated Diagnosis Comme nts INR Routine 03/26/2020 Results for thi s procedure are in the resu lts section. 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 fibrillation 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 documented in this encounter Additional Health Concerns Assessment Noted Time PHQ-9 Depression Total Score: 4 04/12/2019 7:03 AM CDT documented as of this encounter Care Teams Bakery Chef Relationship Specialty Start Date End Date Jaiden Holcomb PCP - General Internal Medicine 02/13/2010/03 MD Jayesh [address] [facility] [place] [address] Chastity Montero MD Dermatology 09/23/14 MD Martha [address] [facility] 98 [place], [place] [address] Johnnie Alcocer MD Surgeon General Surgery 03/23/[address] [place] [address] Danni Marcus, CHANDLER Personal Advocate & 01/09/1901/17 Liaison (PAL) Fernando, Kyle Complex 04/23/19 Svetlana Osman Pharmacist Pharmacotherapy 04/23/19 Era, [facility] [address] [place] [address] Haylie Cheung, Pharmacist Pharmacist 09/11/[address] [facility] [address] [place] [address] Galdino Valdez MD Assigned PCP 11/10/19 05/23/20 [address] [place] [address] documented as of this encounter
--- OUTSIDE RECORDS SUMMARY | 2022-06-15 12:54 | XMS_ITS | Encounter Summary ---
:1945 Author Organization [place] Address [address] [place] [address] Care Team Providers Name Role Phone Chastity Montero MD Unavailable [phone] Johnnie Alcocer MD Unavailable Danni Marcus RN Unavailable Unavailable Mtm, Ea Complex Unavailable Unavailable Svetlana Osman [facility] Unavailable [phone] Haylie Cheung [facility] Unavailable [phone] Galdino Valdez MD Unavailable Jaiden Holcomb MD Primary Care Provider [phone] Encounter Details Date Type Department Care Team Description 03/24/2020 Orders Only [facility] Jaiden Holcomb DIAGN OSIS NOT YET Clinic Yarelis Mcconnell MD DEFINED (Primary Dx) [address] [address] [place] [phone] Social History Tobacco Use Types Packs/Day Years [...] 05/03/2021 organizations such as sabianist groups, unions, [employer] or athletic groups, or school groups? How [...] Pharm D Haylie Cheung, [facility] [address] [place] [address] [place] [address] (Wo rk) 11/15/2022 Virtual Visit IM/Peds Yane Barraza MD [address] [place] [address] (Wo rk) 03/03/2023 Virtual Visit Neurology Erlinda Barber MD [address] [facility] 295 [place] [address] (Wo rk) documented as of this encounter Procedures Procedure Name Priority Date/Time Associated Diagnosis Comme nts ZC RECERTIFICATION SITE IDENTIFICATION SPECIALIST PT Routine 03/24/2020 DIAGNOSIS N OT YET DEFINED documented in this encounter Results RECERTIFICATION SITE IDENTIFICATION SPECIALIST PT (03/24/2020) Narrative This result has an attachment that is no t available. Jaiden Holcomb MD [employer] documented in this encounter Visit Diagnoses Diagnosis DIAGNOSIS NOT YET DEFINED - Primary documented in this encounter Additional Health Concerns Assessment Noted Time PHQ-9 Depression Total Score: 4 04/12/2019 7:03 AM CDT documented as of this encounter Care Teams Channel Rougher Relationship Specialty Start Date End Date Jaiden Holcomb PCP - General Internal Medicine 02/13/2010/03 MD Jayesh [address] [facility] [address] [place] [id number] Chastity Montero MD Dermatology 09/23/14 MD Martha [address] [facility] [address] [facility] 98 [place], [place] [address] Johnnie Alcocer MD Surgeon General Surgery 03/23/17 [address] [facility] 300 [place], [place] [id number] Danni Marcus, CHANDLER Personal Advocate & 01/09/1901/17 Liaison (PAL) Mtkinsey, Ea Complex 04/23/19 Svetlana Osman Pharmacist Pharmacotherapy 04/23/19 Era, [facility] [address] [place], [place] [id number] Haylie Cheung, Pharmacist Pharmacist 09/11/19 [facility] [address] [place], [place] [id number] Galdino Valdez MD Assigned PCP 11/10/19 05/23/20 [address] [place], [place] [id number] documented as of this encounter
--- OUTSIDE RECORDS SUMMARY | 2022-06-15 12:54 | XMS_ITS | Encounter Summary ---
:1945 Author Organization [place] Address [address] [place] [address] Care Team Providers Name Role Phone Chastity Montero MD Unavailable [phone] Johnnie Alcocer MD Unavailable Danni Marcus RN Unavailable Unavailable Mtm, Ea Complex Unavailable Unavailable Svetlana Osman [facility] Unavailable [phone] Haylie Cheung [facility] Unavailable [phone] Galdino Valdez MD Unavailable Jaiden Holcomb MD Primary Care Provider [phone] Kendall Joseph MD Unavailable Erlinda Barber MD Unavailable Jaiden Holcomb MD Unavailable [phone] Encounter Details Date Type Department Care Team Description 03/24/2020 [facility] Provider, [facility] and Historical Bariatrics Care [address] [address] Social History Tobacco Use Types [...] D Haylie Cheung, [facility] [address] [place] [address] [place] [address] (Wo winter) 11/15/2022 Virtual Visit IM/Peds Yane Barraza MD [address] [place] [address] [place] [address] (Wo winter) 03/03/2023 Virtual Visit Neurology Erlinda Barber MD 420 [facility] 295 [place] [address] (Wo rk) documented as of this encounter Visit Diagnoses Not on filedocumented in this encounter Additional Health Concerns Assessment Noted Time PHQ-9 Depression Total Score: 4 04/12/2019 7:03 AM CDT documented as of this encounter Care Teams Medical Billing And Coding Instructor Relationship Specialty Start Date End Date Jaiden Holcomb PCP - General Internal Medicine 02/13/2010/03 MD Jayesh [address] [place] [address] [place] [id number] Chastity Montero MD Dermatology 09/23/14 MD [address] [facility] [address] [place], [place] [address] Johnnie Alcocer MD Surgeon General Surgery 03/23/[address] [place] [address] Danni Marcus, CHANDLER Personal Advocate & 01/09/1901/17 Liaison (PAL) Mtkinsey, Ea Complex 04/23/19 Svetlana Osman, Pharmacist Pharmacotherapy 04/23/19 [facility] [address] [facility] [address] Haylie Cheung, Pharmacist Pharmacist 09/11/19 [facility] [address] [facility] [address] [place], [place] [phone] Galdino Valdez MD Assigned PCP 11/10/19 05/23/20 [address] [place], [place] [id number] Opal, Assigned Sleep 05/08/20 03/27/21 Kendall Meehan MD Provider [address] [place], [place] [address] Erlinda Barber MD Assigned Neuroscience 05/08/20 01/26/21 [address] [facility] [address] Provider [place], [place] [address] Jaiden Holcomb Assigned PCP 05/24/20 MD Jayesh 909 [place], [place] [address] documented as of this encounter
--- OUTSIDE RECORDS SUMMARY | 2022-06-15 12:54 | XMS_ITS | Encounter Summary ---
:1945 Author Organization [place] Address [address] [place] [address] Care Team Providers Name Role Phone Chastity Montero MD Unavailable Johnnie Alcocer MD Unavailable Danni Marcus RN Unavailable Unavailable Mtm, Ea Complex Unavailable Unavailable Svetlana Osman [facility] Unavailable [phone] Haylie Cheung [facility] Unavailable [phone] Galdino Valdez MD Unavailable Jaiden Holcomb MD Primary Care Provider [phone] Encounter Details Date Type Department Care Team Description 03/09/2020 Travel Social History Tobacco Use Types Packs/Day [...] [facility] 14[address] [facility] [place] [address] (Wo rk) 11/15/2022 Virtual Visit IM/Yane Mathias MD [address] [place] [address] [place] [address] (Wo rk) 03/03/2023 Virtual Visit Neurology Erlinda Barber MD [address] [place] [address] 295 [place] [address] (Wo rk) documented as of this encounter Visit Diagnoses Not on filedocumented in this encounter Additional Health Concerns Assessment Noted Time PHQ-9 Depression Total Score: 4 04/12/2019 7:03 AM CDT documented as of this encounter Care Teams Blow Mold Machine Operator Relationship Specialty Start Date End Date Jaiden Holcomb PCP - General Internal Medicine 02/13/2010/03 MD Jayesh [address] [place] [address] [place] [id number] Chastity Montero MD Dermatology 09/23/14 MD Martha 420 [facility] 98 [place], [place] [address] Johnnie Alcocer MD Surgeon General Surgery 03/23/17 [address] [facility] 300 [place], [place] [phone] Danni Marcus, RN Personal Advocate & 01/09/1901/17 Liaison (PAL) Kyle King Complex 04/23/19 Svetlana Osman Pharmacist Pharmacotherapy 04/23/19 Era, [facility] [address] [place], [place] [phone] Haylie Cheung, Pharmacist Pharmacist 09/11/19 [facility] [address] [place] [address] [id number] Galdino Valdez MD Assigned PCP 11/10/19 05/23/20 [address] [place] [address] documented as of this encounter
--- OUTSIDE RECORDS SUMMARY | 2022-06-15 12:54 | XMS_ITS | Encounter Summary ---
:1945 Author Organization [place] Address [address] [place] [address] Care Team Providers Name Role Phone Chastity Montero MD Unavailable [phone] Johnnie Alcocer MD Unavailable Danni Marcus RN Unavailable Unavailable Mtm, Ea Complex Unavailable Unavailable Svetlana Osman [facility] Unavailable [phone] Haylie Chueng [facility] Unavailable [phone] Galdino Valdez MD Unavailable Jaiden Holcomb MD Primary Care Provider Encounter Details Date Type Department Care Team Description 02/28/2020 Anticoagulation Therapy [facility] Zhang, 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 embolism; Visit Clinic Yarelis Hwang Paroxysmal atrial fibrillati on (H); 3305 Celina MD Jayesh custodial current use of anticoagulant t [address] [facility] [phone] Social History Tobacco Use Types Packs/Day [...] More than 4 times per year 05/03/2021 yazidism services? Do you belong to any clubs or No 05/03/2021 organizations such as episcopalian groups, unions, [employer] or athletic groups, or school groups? [...] encounter Progress Notes Fadumo Davies RN - 02/28/2020 3:52 PM CDT ANTICOAGULATION MANAGEMENT Patient Name: Charlette Brush Date: 02/28/2020 ASSESSMENT /SUBJECTIVE: Today's INR result of 3.1 is supratherapeutic. Goal INR of 2.0-3.0 ??? Warfarin dose taken: Warfarin taken as previously instructed ??? Diet: No new diet changes affecting INR ??? Medication changes/ interactions: No new medications/supplements affecting INR ??? Previous INR: Therapeutic ??? S/S of bleeding or thromboembolism: No ??? New injury or illness: No ??? Upcoming surgery, procedure or cardioversion: No ??? Additional findings: None PLAN: Spoke with Lizette, home care, regarding INR result and instructed: Warfarin Dosing Instructions: Change your warfarin dose to 5 mg on tues/fri and 10 mg all other daysdue to trending up Instructed patient to follow up no later than: 2 weeks Orders given to Homecare nurse/facility to recheck Education provided: None required Lizette, home care, verbalizes understanding and agrees to warfarin dosing plan. Instructed to call the Anticoagulation Clinic for any changes, questions or concerns. (#[phone]) Fadumo Davies RN OBJECTIVE: Recent labs: (last 7 days) 02/28/20 INR 3.1* No question data found. Anticoagulation Summary As of 02/28/2020 INR goal: 2.0-3.0 TTR: 77.7 % (1 y) INR used for dosin.1! 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 Anticoagulation Care Providers Provider Role Specialty Phone number Galdino Valdez MD Referring Family Practice [phone] [facility] Responsible Internal Medicine [phone] documented in this encounter Plan of Treatment Upcoming Encounters Date Type Specialty Care Team Description 11/15/2022 Virtual Visit Pharm D Haylie Cheung, [facility] [address] [facility] [place] [address] (Lena max) 11/15/2022 Virtual [place] [address] [place] [address] [place] [address] (Lena max) 03/03/2023 Virtual Visit Neurology Erlinda Barber MD 420 [facility] 295 [place] [address] (Lena max) documented as of this encounter Procedures Procedure Name Priority Date/Time Associated Diagnosis Comme nts INR Routine 02/28/2020 Results for thi s procedure are in the resu lts section. 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 t herapy documented in this encounter Additional Health Concerns Assessment Noted Time PHQ-9 Depression Total Score: 4 04/12/2019 7:03 AM CDT documented as of this encounter Care Teams Rehab Rn Relationship Specialty Start Date End Date Jaiden Holcomb PCP - General Internal Medicine 02/13/2010/03 MD Jayesh [address] [facility] [address] [place], [place] [phone] Chastity Montero MD Dermatology 09/23/14 MD Martha 420 [facility] 98 [place], [place] [phone] Johnnie Alcocer MD Surgeon General Surgery 03/23/[address] [place] [address] Danni Marcus, CHANDLER Personal Advocate & 01/09/1901/17 Liaison (PAL) Fernando, Ea Complex 04/23/19 Svetlana Osman Pharmacist Pharmacotherapy 04/23/19 Era, [facility] [address] [place] [address] Haylie Cheung, Pharmacist Pharmacist 09/11/19 [facility] [address] [place] [phone] Galdino Valdez MD Assigned PCP 11/10/19 05/23/20 [address] [place] [address] documented as of this encounter
--- OUTSIDE RECORDS SUMMARY | 2022-06-15 12:54 | XMS_ITS | Encounter Summary ---
:1945 Author Organization [facility] Address [address] [place] [address] Care Team Providers Name Role Phone Chastity Montero MD Unavailable [phone] Johnnie Alcocer MD Unavailable Danni Marcus RN Unavailable Unavailable Mtm, Ea Complex Unavailable Unavailable Svetlana Osman [facility] Unavailable [phone] [facility] Unavailable [phone] Galdino Valdez MD Unavailable Jaiden Holcomb MD Primary Care Provider [phone] Reason for Visit Reason Onset Date Comments Home Care/Hospice 03/04/2020 Orders Encounter Details Date Type Department Care Team Description 03/04/2020 [facility] Jaiden Holcomb Home Care[facility]Hospice Clinic Yarelis Mcconnell MD (Orders) [address] [address] [place] [address] [phone] Social History Tobacco Use Types Packs/Day Years [...] 05/03/2021 organizations such as sikhism groups, unions, [employer] Level Enterprieses or athletic groups, or school groups? How [...] you been in contact Unable to assess 03/05/2020 9:25 AM CDT with someone who was confirmed or suspected to have Coronavirus / COVID-19? documented as of this encounter Miscellaneous Notes Telephone Encounter - Danni Marcus RN - 03/05/2020 9:05 AM CDT I spoke with Juanita, home health care physician. 1. She requested order for geriatric social work professor to discuss options for wound care- possibly a TCU. States she had to go back to patient's home last night to replace the wound vac. Concern that home care won't be able to return multiple times to replace the wound vac. Verbal order given for geriatric social work professor for consultation per protocol. 2. RN states that she hasn't been able to draw labs in the past. Patient will need to have these drawn at a lab. 3. Patient is unsure if she wants to change wound care specialists. She will notify us if she decides to do this. Has an appointment on 03/24 with the WIRE BRUSHER at the wound clinic. She has an appointment with Dr. Huggins in May. Wishes she could see her more frequently, but she isn't available so sheneeds to see the WIRE BRUSHER. 4. Juanita did look at the toe wound and states this is healing well. She doesn't feel this needs any further treatment at this time. I spoke with the Neurology clinic and they scheduled patient for a lab appointment on Monday at 1:15pm prior to her appointment. They are able to visualize the orders in Epic. Patient notified of this. Ashli Marcus RN Telephone Encounter - Jaiden Holcomb MD - 03/04/2020 2:53 PM CDT Agreeable to getting a second opinion on a wound that has had poor healing for over 2 years now. I did see notes from vascular and surgery with continued wound care recommended for now. I do see a preablumin level low as well in November of this year. I would like to follow up Hb, iron studies, protein, prealbumin and albumin levels. We also have a BMP order pending. Jaiden Holcomb MD Internal Medicine [facility] [place] Telephone Encounter - Danni Marcus RN - 03/04/2020 1:22 PM CDT I spoke with CHANDLER Grant, and she is asking for any further recommendations regarding wound care-second opinion-if patient is willing? Wound is not improving at all, and nurse doesn't feel that she is getting much direction from the wound clinic. Patient recently saw the vascular clinic and provider recommended using the wound vac. Would it be worth checking protein levels? Last Albumin thru [facility] was 3.2. Verbal approval given for orders for [facility] three times/week for wound care for the next 60days per protocol. Ashli Marcus RN Telephone Encounter - Gisele Reed - 03/04/2020 12:05 PM CDT Juanita called in with [facility] Requesting verbal orders for Homecare re-certification Callback [phone] documented in this encounter Plan of Treatment Upcoming Encounters Date Type Specialty Care Team Description 11/15/2022 Virtual Visit Haylie Wakefield, [facility] [address] [place] [address] (Wo rk) 11/15/2022 Virtual Visit IM/Peds Yane Barraza MD [address] [facility] [address] [place] [address] (Wo rk) 03/03/2023 Virtual Visit Neurology Erlinda Barber MD [address] [facility] [address] [place] [address] (Wo rk) documented as of this encounter Results Protein, total (03/09/2020 1:49 PM CDT) athologist Signature Protein Total 7.6 6.8 - 8.8 03/09/2020 [facility] g/dL 2:23 PM CDT [facility] Specimen Anatomical Collection Method Collection Time Receive d Time (Source) Location / / Volume Laterality Blood specimen 03/09/2020 1:49 PM 020 1:50 (specimen) CDT PM CDT Jaiden Holcomb MD LAB - BLOOD ORDERABLES Performing Organization Address City/[facility]/ZIP Code Phon e Number [place] [phone] [facility] (ABNORMAL) Prealbumin (03/09/2020 1:49 PM CDT) athologist Signature Prealbumin 13 (L) 15 - 45 03/09/2020 [facility] mg/dL 2:23 PM CDT [facility] Specimen Anatomical Collection Method Collection Time Receive d Time (Source) Location / / Volume Laterality Blood specimen 03/09/2020 1:49 PM 020 1:50 (specimen) CDT PM CDT Jaiden Holcomb MD LAB - BLOOD ORDERABLES Performing Organization Address City/State/ZIP Code Phon e Number [address] [address] [facility] (ABNORMAL) Albumin level (03/09/2020 1:49 PM CDT) P athologist Signature Albumin 3.0 (L) 3.4 - 5.0 03/09/2020 [facility] g/dL 2:23 PM CDT [facility] Specimen Anatomical Collection Method Collection Time Receive d Time (Source) Location / / Volume Laterality Blood specimen 03/09/2020 1:49 PM 020 1:50 (specimen) CDT PM CDT Jaiden Holcomb MD LAB - BLOOD ORDERABLES Performing Organization Address City/State/ZIP Code Phon e Number [facility] [address] [place] [address] [facility] documented in this encounter Visit Diagnoses Diagnosis Pressure injury of left buttock, stage 4 (H) - Primary documented in this encounter Additional Health Concerns Assessment Noted Time PHQ-9 Depression Total Score: 4 04/12/2019 7:03 AM CDT documented as of this encounter Care Teams Chief Counsel Relationship Specialty Start Date End Date Jaiden Holcomb PCP - General Internal Medicine 02/13/2010/03 MD Jayesh [address] [facility] [address] [place], [place] [phone] Chastity Montero MD Dermatology 09/23/14 MD Martha [address] [place] [address] [address] [place], [place] [address] Johnnie Alcocer MD Surgeon General Surgery 03/23/17 [address] [facility] [address] [place] [address] Danni Marcus, CHANDLER Personal Advocate & 01/09/1901/17 Liaison (PAL) Fernando, Ea Complex 04/23/19 Svetlana Osman Pharmacist Pharmacotherapy 04/23/19 Era, [facility] [address] [place] [address] Haylie Cheung, Pharmacist Pharmacist 09/11/[address] [facility] [address] [place] [phone] Galdino Valdez MD Assigned PCP 11/10/19 05/23/[address] [place] [address] documented as of this encounter
--- OUTSIDE RECORDS SUMMARY | 2022-06-15 12:54 | XMS_ITS | Encounter Summary ---
:1945 Author Organization [facility] Address [address] [place] [address] Care Team Providers Name Role Phone Chastity Montero MD Unavailable [phone] Johnnie Alcocer MD Unavailable Danni Marcus RN Unavailable Unavailable Mtm, Ea Complex Unavailable Unavailable Svetlana Osman [facility] Unavailable [phone] Haylie Cheung [facility] Unavailable [phone] Galdino Valdez MD Unavailable Jaiden Holcomb MD Primary Care Provider Kendall Joseph MD Unavailable Erlinda Barber MD Unavailable Jaiden Holcomb MD Unavailable [phone] Reason for Visit Reason Comments Other Lt IT ulcer Encounter Details Date Type Department Care Team Description 03/24/2020 Office Visit - [facility] Patience Toussaint NP Pressure injury of left ischium, stage 4 (H); [facility] [address] [place] [address] Leg nkechi ng; [facility] Lymphedema of both lower extremities; [facility] Venous hypertension of lower extremity, bilateral; Street [address] [place], [place] Morbid obesity with BMI of 5 0.0-59.9, adult (H) [place], [place] [id number] Social History Tobacco Use Types Packs/Day [...] Sign Reading Time Taken Comments Blood Pressure 123/76 03/24/2020 11:20 AM CDT Pulse 88 03/24/2020 11:20 AM CDT Temperature 36.6 ??C (97.9 ??F) 03/24/2020 11:20 AM CDT Respiratory Rate 22 03/24/2020 11:20 AM CDT Oxygen Saturation - - Inhaled Oxygen Concentration - - Weight 162.3 kg (357 lb 14.4 oz) 03/24/2020 11:20 AM CDT Height - - Body Mass Index 56.06 03/12/2020 3:13 PM CDT documented in this encounter Progress Notes Patience Toussaint NP - 03/24/2020 11:15 AM CDT Images from the original note were not included. Progress Notes by Patience Toussaint NP at 03/24/2020 11:15 AM Author: Patience Toussaint NP Service: -- Author Type: Nurse Practitioner Filed: 03/24/2020 11:49 AM Encounter Date: 03/24/2020 Status: Signed [employer] Product Manager: Patience Toussaint NP (Nurse Practitioner) Follow up Vascular Visit Date of Service:03/24/2020 Date Last Seen: 02/03/2020; 03/12/2020 Chief Complaint: stage 4 pressure injury to left IT Pt returns to [facility] with regards to their stage 4 pressure injury to left IT. They arrive today alone. They are currently using dilute hibiclens to irrigate the wound; then endoform to the wound bed; covered with wound vac 125mmHG of suction to the wounds; noted that today the seal is broken and not functioning. She is also concerned about her great toe nail which has fallen off and would like this looked at. This is being done by home care 3 days per week; the vac is staying inplace no alarms for the most part. They are using velcro wraps and flexitouch pump for compression. They are feeling well today. Denies fevers, chills. No shortness of breath. She has an appt with bariatric later this week. She is focusing on protein in the diet. She has a roho cushion and low air loss mattress on her hospital bed. Allergies: Cephalexin; Ciprofloxacin; Clindamycin; Lanolin; Lisinopril; Mupirocin; Neomycin; and Penicillins Medications: Current Outpatient Medications: ? [...] by mouth daily., Disp: , Rfl: ? bhnutznmffht-fmrcvema-mkuort (CEROVITE SENIOR) tablet, Take 1 tablet by mouth at bedtime., Disp: ,Rfl: ? nystatin (MYCOSTATIN) cream, Apply topically., Disp: , Rfl: ? sodium hypochlorite (DAKIN'S, HALF-STRENGTH,) external solution, Irrigate with as directed daily.,Disp: , Rfl: ? triamcinolone (KENALOG) 0.1 % ointment, Apply topically., Disp: , Rfl: ? warfarin (COUMADIN) 10 MG tablet, Take 10 mg by mouth daily., Disp: , Rfl: Current Facility-Administered Medications: ? lidocaine 2 % [...] Patient has appointment with Retina Specialist at [facility] on 01/11. 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 ? Morbid obesity (H) [...] for Dr. Kajal Huggins at [facility] in [place] per patient request. She has contact i [...] Weakness left lower limb Physical Exam: BP 123/76 Pulse 88 Temp 97.9 ??F (36.6 ??C) Resp 22 Wt (!) 357 lb 14.4 oz (162.3 kg) BMI 56.06 kg/m?? General: Patient presents to clinic in no apparent distress. Head: normocephalic atraumatic Psychiatric: Alert and oriented x3. Respiratory: unlabored breathing; no cough Integumentary: Skin is uniformly warm, dry and pink. Wound #1 Location: left IT Size: 4L x 4W x 7.5depth. No sinus tract present, Wound base: red; viable, agranular No undermining present. Wound is full thickness. There is moderate to large drainage. Periwound: no denudement, erythema, induration, maceration or warmth. No bone probed today Circumferential volume measures: No flowsheet data found. Ulceration(s)/Wound(s): VASC Wound 05/15/19 Buttocks (Active) Pre Size Length 4 03/24/20 1100 Pre Size Width 4 03/24/20 1100 Pre Size Depth 7.5 03/24/20 1100 Pre Total Sq cm 16 03/24/20 1100 Post Size Length 4 02/03/20 1500 Post Size Width 5 02/03/20 1500 Post Size Depth 4.7 02/03/20 1500 Post Total Sq cm 20 02/03/20 1500 Undermined no 12/12/19 0900 Tunneling no 12/12/19 0900 Description pink 03/12/20 1500 Prodcut Used Negative pressure 03/12/20 1500 VASC Wound 03/24/20 Lt great toe (Active) Pre Size Length 0.2 03/24/20 1100 Pre Size Width 0.3 03/24/20 1100 Pre Size Depth 0.1 03/24/20 1100 Pre Total Sq cm 0.06 03/24/20 1100 Lab Values Lab Results Component Value Date SEDRATE 23 (H) 12/11/2019 Lab Results Component Value Date CREATININE 0.62 06/04/2019 No results found for: HGBA1C Lab Results Component Value Date BUN 23 06/04/2019 Lab Results Component Value Date ALBUMIN 3.3 (L) 06/04/2019 Vitamin D, Total (25-Hydroxy) Date Value Ref Range Status 12/11/2019 49.7 30.0 - 80.0 ng/mL Final Impression: 1. Pressure injury of left ischium, stage 4 (H) lidocaine 2 % jelly (XYLOCAINE) 2. Leg swelling 3. Lymphedema of both lower extremities 4. Venous hypertension of lower extremity, bilateral 5. Morbid obesity with BMI of 50.0-59.9, adult (H) 03/24/2020 left hallux 03/13/2020 left IT Are any of these wounds new today: Yes; Location: left hallux Assessment/Plan: 1. Debridement: After discussion of risk [...] into the muscle/fascia with a depth of 7.5 cm. Ulcers were improved afterwards and still cleaner. Measures were unchanged after debridement. 2. Wound treatment: wound treatment will include irrigation and dressings to promote autolytic debridement which will include:continue wound vac to the left IT; continue home care Stable. Pt did not want to see Dr. Biswas again. Previously was seen by Dr. Steward who did not feel she was a surgical candidate. Last MRI was positive for osteo when was seen and treated by ID with IV antibiotics; has completed this therapy. Toe Vaseline daily 3. Edema: velcro wraps per dr. Huggins; flexitouch. The compression wraps were applied today in clinic. Stable not addressed today 4. Nutrition: will see bariatrics later this week; continue to focus on protein in the diet; take supplements 5. Offloading: has roho cushion and low air loss mattress Patient will follow up with me in 4 weeks for reevaluation. They were instructed to call the clinicsooner with any signs or symptoms of infection or any further questions/concerns. Answered all questions. Patience Toussaint DNP, RN, CARAMEL C[employer]TER [employer], CWOCN, CFCN, CLT [facility] [phone] This note was electronically signed by Patience Toussaint documented in this encounter Miscellaneous Notes Patient Instructions - HE - Patience Toussaint NP - 03/24/2020 11:15 AM CDT Wound Care: Wound Pressure Treatment (NWPT) when supplies are available. Change NWPT 3 times / week.Irrigate wound with hibiclens wash and NS and clean surrounding skin with Normal Saline, or wound cleanser, or soap and water. ??Rinse with water or saline. ??Apply skin barrier to klever-wound tissue. Pack endoform into deep areas of ulcer (may cut in pieces for better placement) Then gently place foaminto wound bed. Cover with transparent drape and affix negative pressure pad.K.C.I. V.A.C. Settings:125mmHg: Continuous.May adjust pressure from 100mmHg to 150 mmHg to accommodate comfort or wound drainage.If foam adheres to wound, may use a single layer, wide meshed, non-adherent dressing (e.g. Adaptic gauze, Aquaphor, ) in wound bed prior to foam placement.Back-Up Plan: ??When NWPT not available, place moist gauze in wound bed, cover with appropriate dressing to keep wound bed moist. ??Change 1-2times daily until negative pressure can be reapplied. Continue to use Flexitouch. Continue modified exercise and compression. Follow up with bariatrics soon. Left great toe Vaseline daily Velcro wraps bilaterally daily Addendum Note - Celina Frias - 03/24/2020 11:15 AM CDT Addendum Note by Celina Frias CMA at 03/24/2020 11:15 AM Author: Celina Frias CMA Service: -- Author Type: International First Officer Filed: 03/24/2020 11:50 AM Encounter Date: 03/24/2020 Status: Signed [employer] Product Manager: Celina Frias CMA (International First Officer) Addended by: CELINA FRIAS on: 03/24/2020 11:50 AM Modules accepted: Orders documented in this encounter Plan of Treatment Upcoming Encounters Date Type Specialty Care Team Description 11/15/2022 Virtual Visit Pharm D Haylie Cheung, [facility] [address] [facility] [place] [address] (Lena max) 11/15/2022 Virtual [place] [address] [place] [address] [place] [address] (Lena max) 03/03/2023 Virtual Visit Neurology Erlinda Barber MD [address] [facility] [address] [place] [address] (Lena max) documented as of this encounter Visit Diagnoses Diagnosis Pressure injury of left ischium, stage 4 (H) Leg swelling Swelling of limb Lymphedema of both lower extremities Venous hypertension of lower extremity, bilateral Morbid obesity with BMI of 50.0-59.9, ad ult (H) documented in this encounter Additional Health Concerns Assessment Noted Time PHQ-9 Depression Total Score: 4 04/12/2019 7:03 AM CDT documented as of this encounter Care Teams Regulatory Technician Relationship Specialty Start Date End Date Jaiden Holcomb PCP - General Internal Medicine 02/13/2010/03 MD Jayesh [address] [facility] [address] [place], [place] [phone] Chastity Montero MD Dermatology 09/23/14 [address] [facility] [address] [place], [place] [phone] Johnnie Alcocer MD Surgeon General Surgery 03/23/[address] [place], [place] [phone] Danni Marcus, CHANDLER Personal Advocate & 01/09/1901/17 Liaison (PAL) [place], Ea Complex 04/23/19 Svetlana Osman, Pharmacist Pharmacotherapy 04/23/19 [facility] [address] [place], [place] [phone] Haylie Cheung, Pharmacist Pharmacist 09/11/19 [facility] [address] [place], [place] [phone] Galdino Valdez MD Assigned PCP 11/10/19 05/23/20 [address] [place], [place] [phone] Opal, Assigned Sleep 05/08/20 03/27/21 Kendall Meehan MD Provider [address] [place], [place] [address] Erlinda Barber MD Assigned Neuroscience 05/08/20 01/26/21 [address] [facility] [address] [place] [address] Jaiden Holcomb Assigned PCP 05/24/20 MD Jayesh [address] [place], [place] [address] documented as of this encounter
--- OUTSIDE RECORDS SUMMARY | 2022-06-15 12:54 | XMS_ITS | Encounter Summary ---
:1945 Author Organization [place] Address [address] [place] [address] Care Team Providers Name Role Phone Chastity Montero MD Unavailable [phone] Johnnie Alcocer MD Unavailable Danni Marcus RN Unavailable Unavailable Mtm, Ea Complex Unavailable Unavailable Svetlana Osman [facility] Unavailable [phone] Haylie Cheung [facility] Unavailable [phone] Gladino Valdez MD Unavailable Jaiden Holcomb MD Primary Care Provider [phone] Encounter Details Date Type Department Care Team Description 03/09/2020 Orders Only [facility] Pressure injury of left butt ock, stage 4 (H); [address] 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 How [...] D Haylie Cheung, [facility] [address] [place] [address] (Wo rk) 11/15/2022 Virtual Visit IM/Peds Yane Barraza MD [address] [facility] [place] [address] (Wo rk) 03/03/2023 Virtual Visit Neurology Erlinda Barber MD [address] [facility] [address] [place] [address] (Wo rk) documented as of this encounter Procedures Procedure Name Priority Date/Time Associated Diagnosis Comme nts INR Routine 03/09/2020 1:49 PM Paroxysmal atrial Resu lts for this CDT fibrillation (H) procedure are in Hx Recurrent PE/DVT the resu lts -- on Warfarin section. PROTEIN TOTAL Routine 03/09/2020 1:49 PM Pressure injury of Re sults for this CDT left buttock, stage 4 proced ure are in (H) the results section. PREALBUMIN Routine 03/09/2020 1:49 PM Pressure injury of Res ults for this CDT left buttock, stage 4 proced ure are in (H) the results section. HEMOGLOBIN Routine 03/09/2020 1:49 PM Iron deficiency Result s for this CDT anemia, unspecified procedur e are in iron deficiency the results anemia type section. FOLATE Routine 03/09/2020 1:49 PM Iron deficiency Result s for this CDT anemia, unspecified procedur e are in iron deficiency the results anemia type section. FERRITIN Routine 03/09/2020 1:49 PM Iron deficiency Result s for this CDT anemia, unspecified procedur e are in iron deficiency the results anemia type section. ALBUMIN LEVEL Routine 03/09/2020 1:49 PM Pressure injury of Re sults for this CDT left buttock, stage 4 proced ure are in (H) the results section. BASIC METABOLIC Routine 03/09/2020 1:49 PM Essential Result s for this PANEL CDT hypertension, benign procedu re are in the results section. documented in this encounter Results Ferritin (03/09/2020 1:49 PM CDT) athologist Signature Ferritin 100 8 - 252 03/09/2020 [facility] ng/mL 3:07 PM CDT [facility] Specimen Anatomical Collection Method Collection Time Receive d Time (Source) Location / / Volume Laterality Blood specimen 03/09/2020 1:49 PM 020 1:50 (specimen) CDT PM CDT Jaiden Holcomb MD LAB - BLOOD ORDERABLES Performing Organization Address City/[facility]/ZIP Code Phon e Number [address] [address] [facility] Folate (03/09/2020 1:49 PM CDT) athologist Signature Folate 18.9 >5.4 ng/mL 03/09/2020 [facility] 5:19 PM CDT [facility] Specimen Anatomical Collection Method Collection Time Receive d Time (Source) Location / / Volume Laterality Blood specimen 03/09/2020 1:49 PM 020 1:50 (specimen) CDT PM CDT Jaiden Holcomb MD LAB - BLOOD ORDERABLES Performing Organization Address City/State/ZIP Code Phon e Number [address] [address] [facility] Basic metabolic panel (Ca, Cl, CO2, Creat, Gluc, K, Na, BUN) (03/09/2020 1:49 PM CDT) athologist Signature Sodium 141 133 - 144 03/09/2020 [facility] mmol/L 2:23 PM CDT [facility] Potassium 4.5 3.4 - 5.3 03/09/2020 [facility] mmol/L 2:23 PM CDT [facility] Chloride 109 94 - 109 03/09/2020 [facility] mmol/L 2:23 PM CDT [facility] Carbon Dioxide 29 20 - 32 03/09/2020 [facility] mmol/L 2:23 PM CDT [facility] Anion Gap 3 3 - 14 03/09/2020 [facility] mmol/L 2:23 PM CDT [facility] Glucose 90 70 - 99 03/09/2020 [facility] mg/dL 2:23 PM CDT [facility] Urea Nitrogen 22 7 - 30 03/09/2020 [facility] mg/dL 2:23 PM CDT [facility] Creatinine 0.52 0.52 - 03/09/2020 [facility] 1.04 mg/dL 2:23 PM CDT [facility] GFR Estimate >90 >60 03/09/2020 [facility] mL/min/{1. 2:23 PM T [place] 73_m2} [facility] Comment: Non GFR Calc Starting 07/03/2018, serum creatinine ba sed estimated GFR (eGFR) will be calculated using the Chronic Kidney Dise ase Epidemiology Collaboration (CKD-EPI) equation. GFR Estimate If >90 >60 mL/min/{1.73_m2} 03/09/2020 2: 23 PM [facility] Black T [facility] Comment: GFR Calc Starting 07/03/2018, serum creatinine ba sed estimated GFR (eGFR) will be calculated using the Chronic Kidney Dise ase Epidemiology Collaboration (CKD-EPI) equation. Calcium 8.8 8.5 - 10.1 mg/dL 03/09/2020 2:23 PM CDT [facility] Specimen Anatomical Collection Method Collection Time Receive d Time (Source) Location / / Volume Laterality Blood specimen 03/09/2020 1:49 PM 020 1:50 (specimen) CDT PM CDT Jaiden Holcomb MD LAB - BLOOD ORDERABLES Performing Organization Address City/[facility]/ZIP Code Phon e Number [address] [phone] [facility] Hemoglobin (03/09/2020 1:49 PM CDT) athologist Signature Hemoglobin 14.7 11.7 - 15.7 03/09/2020 [facility] g/dL 1:55 PM CDT [facility] Specimen Anatomical Collection Method Collection Time Receive d Time (Source) Location / / Volume Laterality Blood specimen 03/09/2020 1:49 PM 020 1:50 (specimen) CDT PM CDT Jaiden Holcomb MD LAB - BLOOD ORDERABLES Performing Organization Address City/[facility]/ZIP Code Phon e Number [phone] [place] [address] [facility] (ABNORMAL) INR (03/09/2020 1:49 PM CDT) athologist Signature INR 2.40 (H) 0.86 - 1.14 03/09/2020 [facility] 2:15 PM CDT [facility] Specimen Anatomical Collection Method Collection Time Receive d Time (Source) Location / / Volume Laterality Blood specimen 03/09/2020 1:49 PM 020 1:50 (specimen) CDT PM CDT Galdino Valdez MD LAB - BLOOD ORDERABLES Performing Organization Address City/State/ZIP Code Phon e Number [address] [address] [facility] (ABNORMAL) Albumin level (03/09/2020 1:49 PM CDT) athologist Signature Albumin 3.0 (L) 3.4 - 5.0 03/09/2020 [facility] g/dL 2:23 PM CDT [facility] Specimen Anatomical Collection Method Collection Time Receive d Time (Source) Location / / Volume Laterality Blood specimen 03/09/2020 1:49 PM 020 1:50 (specimen) CDT PM CDT Jaiden Holcomb MD LAB - BLOOD ORDERABLES Performing Organization Address City/[facility]/ZIP Code Phon e Number [address] [address] [facility] (ABNORMAL) Prealbumin (03/09/2020 1:49 PM CDT) P athologist Signature Prealbumin 13 (L) 15 - 45 03/09/2020 [facility] mg/dL 2:23 PM CDT [facility] Specimen Anatomical Collection Method Collection Time Receive d Time (Source) Location / / Volume Laterality Blood specimen 03/09/2020 1:49 PM 020 1:50 (specimen) CDT PM CDT Jaiden Holcomb MD LAB - BLOOD ORDERABLES Performing Organization Address City/[facility]/ZIP [facility] Phon e Number [address] [address] [facility] Protein, total (03/09/2020 1:49 PM CDT) P athologist Signature Protein Total 7.6 6.8 - 8.8 03/09/2020 [facility] g/dL 2:23 PM CDT [facility] Specimen Anatomical Collection Method Collection Time Receive d Time (Source) Location / / Volume Laterality Blood specimen 03/09/2020 1:49 PM 020 1:50 (specimen) CDT PM CDT Jaiden Holcomb MD LAB - BLOOD ORDERABLES Performing Organization Address City/[facility]/ZIP [facility] Phon e Number [address] [address] [facility] documented in this encounter Visit Diagnoses Diagnosis Pressure injury of left buttock, stage 4 (H) Paroxysmal atrial fibrillation (H) Atrial fibrillation 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 embolism Iron deficiency anemia, unspecified iron deficiency anemia type Essential hypertension, benign documented in this encounter Additional Health Concerns Assessment Noted Time PHQ-9 Depression Total Score: 4 04/12/2019 7:03 AM CDT documented as of this encounter Care Teams Avionics Manager Relationship Specialty Start Date End Date Jaiden Holcomb PCP - General Internal Medicine 02/13/2010/03 MD Jayesh [address] [address] Chastity Montero MD Dermatology 09/23/14 MD Martha [address] [facility] [address] [place], [place] [address] Johnnie Alcocer MD Surgeon General Surgery 03/23/[address] [place] [address] Danni Marcus, CH[facility]ER Personal Advocate & 01/09/1901/17 Liaison (PAL) Fernando, Ea Complex 04/23/19 Svetlana Osman Pharmacist Pharmacotherapy 04/23/19 Era, [facility] [address] [place] [address] Haylie Cheung, Pharmacist Pharmacist 09/11/19 [facility] [address] [place] [address] Galdino Valdez MD Assigned PCP 11/10/19 05/23/20 [address] [place], [place] [phone] documented as of this encounter
--- OUTSIDE RECORDS SUMMARY | 2022-06-15 12:54 | XMS_ITS | Encounter Summary ---
:1945 Author Organization [place] Address [address] [place] [address] Care Team Providers Name Role Phone Chastity Montero MD Unavailable [phone] Johnnie Alcocer MD Unavailable Danni Marcus RN Unavailable Unavailable Mtm, Ea Complex Unavailable Unavailable Svetlana Osman [facility] Unavailable [phone] Haylie Cheung [facility] Unavailable [phone] Galdino Valdez MD Unavailable Jaiden Holcomb MD Primary Care Provider Kendall Joseph MD Unavailable Erlinda Barber MD Unavailable Jaiden Holcomb MD Unavailable Encounter Details Date Type Department Care Team Description 03/20/2020 [facility] Patience Toussaint NP [facility] [address] [place] [address] [place], [place] [phone] (Wo rk) [address] [phone] Social History Tobacco Use Types Packs/Day Years [...] Haylie Cheung, [facility] [address] [facility] [place] [address] (Wo rk) 11/15/2022 Virtual Visit IM[place] [address] [place] [address] [place] [phone] (Wo rk) 03/03/2023 Virtual Visit Neurology Erlinda Barber MD 420 [facility] [address] [place], [place] [address] (Wo rk) documented as of this encounter Visit Diagnoses Not on filedocumented in this encounter Additional Health Concerns Assessment Noted Time PHQ-9 Depression Total Score: 4 04/12/2019 7:03 AM CDT documented as of this encounter Care Teams Cook Box Filler Relationship Specialty Start Date End Date Jaiden Holcomb PCP - General Internal Medicine 02/13/2010/03 MD Jayesh [address] [facility] [address] [place], [place] [phone] Chastity Montero MD Dermatology 09/23/14 [address] [facility] [address] [place] [address] Johnnie Alcocer MD Surgeon General Surgery 03/23/17 [address] [facility] [address] [place], [place] [address] Danni Marcus, CHANDLER Personal Advocate & 01/09/1901/17 Liaison (PAL) Fernando, Ea Complex 04/23/19 Svetlana Osman, Pharmacist Pharmacotherapy 04/23/19 [facility] [address] [facility] [address] [place], [place] [phone] Haylie Cheung, Pharmacist Pharmacist 09/11/19 [facility] [address] [place], [place] [phone] Galdino Valdez MD Assigned PCP 11/10/19 05/23/20 [address] [place], [place] [phone] Opal, Assigned Sleep 05/08/20 03/27/21 Kendall Meehan MD Provider [address] [place], [place] [phone] Erlinda Barber MD Assigned Neuroscience 05/08/20 01/26/21 [address] [facility] [address] Provider [place], [place] [phone] Jaiden Holcomb Assigned PCP 05/24/20 MD Jayesh [address] [place] [address] documented as of this encounter
--- OUTSIDE RECORDS SUMMARY | 2022-06-15 12:54 | XMS_ITS | Encounter Summary ---
:1945 Author Organization [place] Address [address] [place] [address] Care Team Providers Name Role Phone Chastity Montero MD Unavailable [phone] Johnnie Alcocer MD Unavailable Danni Marcus RN Unavailable Unavailable Mtm, Ea Complex Unavailable Unavailable Svetlana Osman [facility] Unavailable [phone] Haylie Cheung [facility] Unavailable [phone] Galdino Valdez MD Unavailable Jaiden Holcomb MD Primary Care Provider [phone] Encounter Details Date Type Department Care Team Description 03/05/2020 Travel Social History Tobacco Use Types Packs/Day [...] Virtual Visit Pharm Haylie Gonzalez, [facility] [address] [facility] [place] [address] (Wo rk) 11/15/2022 Virtual Visit IM/Yane Mathias MD [address] [place] [address] [place] [address] (Wo rk) 03/03/2023 Virtual Visit Neurology Erlinda Barber MD [address] [place] [address] [address] [place] [address] (Wo rk) documented as of this encounter Visit Diagnoses Not on filedocumented in this encounter Additional Health Concerns Assessment Noted Time PHQ-9 Depression Total Score: 4 04/12/2019 7:03 AM CDT documented as of this encounter Care Teams Design Manager Relationship Specialty Start Date End Date Jaiden Holcomb PCP - General Internal Medicine 02/13/2010/[address]esh [address] [place] [address] [place] [phone] Chastity Montero MD Dermatology 09/23/14 MD Martha 420 [facility] [address] [place], [place] [address] Johnnie Alcocer MD Surgeon General Surgery 03/23/17 [address] [place], [place] [address] Danni Marcus, RN Personal Advocate & 01/09/1901/17 Liaison (PAL) Kyle King Complex 04/23/19 Svetlana Osman Pharmacist Pharmacotherapy 04/23/19 Era, [facility] [address] [place], [place] [phone] Haylie Cheung, Pharmacist Pharmacist 09/11/19 [facility] [address] [place], [place] [phone] Galdino Valdez MD Assigned PCP 11/10/19 05/23/20 [address] [place] [address] documented as of this encounter
--- OUTSIDE RECORDS SUMMARY | 2022-06-15 12:54 | XMS_ITS | Encounter Summary ---
:1945 Author Organization [facility] Address [address] [place] [address] Care Team Providers Name Role Phone Chastity Montero MD Unavailable [phone] Johnnie Alcocer MD Unavailable Danni Marcus RN Unavailable Unavailable Mtm, [facility] Unavailable Unavailable Svetlana Osman [facility] Unavailable [phone] Haylie Cheung [facility] Unavailable [phone] Galdino Valdez MD Unavailable Jaiden Holcomb MD Primary Care Provider [phone] Kendall Joseph MD Unavailable Erlinda Barber MD Unavailable Jaiden Holcomb MD Unavailable Encounter Details Date Type Department Care Team Description 02/19/2020 Office Visit - [facility] ure injury of [facility] MD Ivanna left ischium, stage [place] [id number] [place] 4 (H) [address] [facility] [address] [place] [address] [phone] Social History Tobacco Use Types Packs/Day Years [...] Sign Reading Time Taken Comments Blood Pressure 164/110 02/19/2020 2:48 PM CDT Pulse 84 02/19/2020 2:48 PM CDT Temperature 36.7 ??C (98 ??F) 02/19/2020 2:48 PM CDT Respiratory Rate - - Oxygen Saturation - - Inhaled Oxygen Concentration - - Weight - - Height - - Body Mass Index - - documented in this encounter Progress Notes Candido Bergeron MD - 02/19/2020 3:00 PM CDT Images from the original note were not included. Progress Notes by Candido Bergeron MD at 02/19/2020 3:00 PM Author: Candido Bergeron MD Service: -- Author Type: Physician Filed: 03/03/2020 4:17 PM Encounter Date: 02/19/2020 Status: Signed Slip Bridge Operator: Candido Bergeron MD (Physician) [facility] Surgery Consult HPI: 75 y.o. year old female who I have been consulted by Doris Lai MD for evaluation of No chief complaint on file. I have been asked to see the patient noted for a IT pressure ulcer. Questions whether is an abscess or need to be debrided. She is a patient of [facility] Allergies:Cephalexin; Ciprofloxacin; Clindamycin; Lanolin; Lisinopril; Mupirocin; Neomycin; and Penicillins Past Medical History: Diagnosis Date ? Acute [...] Patient has appointment with Retina Specialist at [facility] on 01/11. 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 ? Morbid obesity (H) ? [...] Referral placed for Dr. Kajal Huggins at [facility] in [place] per patient request. She has contact i [...] History: Procedure Laterality Date ? cholectomy ? NERVE REPAIR left ? sciatic nerve transection ? TONSILLECTOMY ? wound irrigation and debridement posterior upper thigh ? wound irrigation and debridement left buttocks CURRENT MEDS: Current Outpatient Medications on File Prior to Visit Medication Sig Dispense Refill ? acetaminophen (TYLENOL) 325 MG tablet Take 975 mg by mouth every 8 (eight) hours as needed for pain. ? ampicillin-sulbactam (UNASYN) 3 gram SolR ? ascorbic acid, vitamin C, (VITAMIN C) 500 MG tablet Take 500 mg by mouth. ? atenolol (TENORMIN) 25 MG tablet Take 25 mg by mouth 2 (two) times a day. ? calcium polycarbophil (FIBERCON) 625 mg tablet Take 1,250 mg by mouth 3 (three) times a day. ? cetirizine (ZYRTEC) 10 MG tablet Take 10 mg by mouth 2 (two) times a day. ? cholecalciferol, vitamin D3, 500 unit Take 200 Units by mouth. ? desoximetasone (TOPICORT) 0.05 % Gel Apply twice daily as needed to arms and legs ? ferrous sulfate 325 (65 FE) MG tablet Take 325 mg by mouth. ? furosemide (LASIX) 40 MG tablet Take 20-40 mg by mouth. ? hydroCHLOROthiazide (HYDRODIURIL) 12.5 MG tablet Take 12.5 mg by mouth. ? hydrocortisone 2.5 % ointment Apply topically 2 (two) times a day. ? levETIRAcetam (KEPPRA) 500 MG tablet Take 500 mg by mouth 2 (two) times a day. ? losartan (COZAAR) 50 MG tablet Take 50 mg by mouth daily. ? odjysnbhyxgm-mfbsxbel-lntpba (CEROVITE SENIOR) tablet Take 1 tablet by mouth at bedtime. ? nystatin (MYCOSTATIN) cream Apply topically. ? sodium hypochlorite (DAKIN'S, HALF-STRENGTH,) external solution Irrigate with as directed daily. ? triamcinolone (KENALOG) 0.1 % ointment Apply topically. ? warfarin (COUMADIN) 10 MG tablet Take 10 mg by mouth daily. No current facility-administered medications on file prior to visit. Family History Problem Relation Age of Onset ? Hypertension Mother ? Transient ischemic attack Mother ? Thyroid disease Mother reports that she has never smoked. She has never used smokeless tobacco. She reports previous alcohol use. She reports that she does not use drugs. Review of Systems: Negative except pressure ulcer OBJECTIVE: Vitals: 02/19/20 1448 BP: (!) 164/110 Patient Site: Left Arm Patient Position: Sitting Cuff Size: Adult Regular Pulse: 84 Temp: 98 ??F (36.7 ??C) TempSrc: Oral There is no height or weight on file to calculate BMI. EXAM: GENERAL: This is a well-developed 75 y.o. female who appears her stated age HEAD: normocephalic Buttock: wound as below goo granulation VASCULAR: Pulses intact, symmetrical upper and lower extremities. VASC Wound 05/15/19 Buttocks (Active) Pre Size Length 3 02/19/20 1400 Pre Size Width 4.5 02/19/20 1400 Pre Size Depth 4 02/19/20 1400 Pre Total Sq cm 13.5 02/19/20 1400 Post Size Length 4 02/03/20 1500 Post Size Width 5 02/03/20 1500 Post Size Depth 4.7 02/03/20 1500 Post Total Sq cm 20 02/03/20 1500 Undermined no 12/12/19 0900 Tunneling no 12/12/19 0900 Description red 01/09/20 1300 LABS: Lab Results Component Value Date WBC 7.3 06/04/2019 HGB 13.8 06/04/2019 HCT 41.5 06/04/2019 MCV 92 06/04/2019 PLT 262 06/04/2019 INR/Prothrombin Time No results found for: HGBA1C Lab Results Component Value Date ALT 15 06/04/2019 AST 21 06/04/2019 ALKPHOS 112 06/04/2019 BILITOT 0.7 06/04/2019 Assessment/Plan: 1. Pressure injury of left ischium, stage 4 (H) Wound looks clean at this time point I would not recommend any debridement does not appear to have any abscess or undermining. At this time point we will get the wound VAC back in place I think that will be a good option for patient and the family is to be set up through home health care. - Change dressing No follow-ups on file. Candido Goncalves. MD [facility] Surgery [phone] Vascular Surgery [phone] documented in this encounter Miscellaneous Notes Letter - Historical Provider - 12/31/2020 10:07 PM CDT Images from the original note were not included. Letter by Candido Bergeron MD at Author: Candido Bergeron MD Service: -- Author Type: -- Filed: Encounter Date: 02/19/2020 Status: (Other) Doris Lai MD [address] [place] [address] March 03, 2020 Patient: Charlette Brush MR Number: [id number] Date of : 1945 Date of Visit: 02/19/[address] Ming MD: Thank you for referring Charlette Brush to me for evaluation. Below are the relevant portions of my assessment and plan of care. If you have questions, please do not hesitate to call me. I look forward to following Charlette along with you. Sincerely, Candido Bergeron MD CC No Recipients Candido Bergeron MD 03/03/2020 4:17 PM Sign when Signing Visit [facility] Surgery Consult HPI: 75 y.o. year old female who I have been consulted by Doris Lai MD for evaluation of No chief complaint on file. I have been asked to see the patient noted for a IT pressure ulcer. Questions whether is an abscess or need to be debrided. She is a patient of [facility] Allergies:Cephalexin; Ciprofloxacin; Clindamycin; Lanolin; Lisinopril; Mupirocin; Neomycin; and Penicillins Past Medical History: Diagnosis Date ? Acute [...] Patient has appointment with Retina Specialist at [facility] on 01/11. 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 ? Morbid obesity (H) ? [...] Referral placed for Dr. Kajal Huggins at [facility] in [place] per patient request. She has contact i [...] History: Procedure Laterality Date ? cholectomy ? NERVE REPAIR left ? sciatic nerve transection ? TONSILLECTOMY ? wound irrigation and debridement posterior upper thigh ? wound irrigation and debridement left buttocks CURRENT MEDS: Current Outpatient Medications on File Prior to Visit Medication Sig Dispense Refill ? acetaminophen (TYLENOL) 325 MG tablet Take 975 mg by mouth every 8 (eight) hours as needed for pain. ? ampicillin-sulbactam (UNASYN) 3 gram SolR ? ascorbic acid, vitamin C, (VITAMIN C) 500 MG tablet Take 500 mg by mouth. ? atenolol (TENORMIN) 25 MG tablet Take 25 mg by mouth 2 (two) times a day. ? calcium polycarbophil (FIBERCON) 625 mg tablet Take 1,250 mg by mouth 3 (three) times a day. ? cetirizine (ZYRTEC) 10 MG tablet Take 10 mg by mouth 2 (two) times a day. ? cholecalciferol, vitamin D3, 500 unit Take 200 Units by mouth. ? desoximetasone (TOPICORT) 0.05 % Gel Apply twice daily as needed to arms and legs ? ferrous sulfate 325 (65 FE) MG tablet Take 325 mg by mouth. ? furosemide (LASIX) 40 MG tablet Take 20-40 mg by mouth. ? hydroCHLOROthiazide (HYDRODIURIL) 12.5 MG tablet Take 12.5 mg by mouth. ? hydrocortisone 2.5 % ointment Apply topically 2 (two) times a day. ? levETIRAcetam (KEPPRA) 500 MG tablet Take 500 mg by mouth 2 (two) times a day. ? losartan (COZAAR) 50 MG tablet Take 50 mg by mouth daily. ? kzmsksivbkhn-tatfltvz-yjfmkz (CEROVITE SENIOR) tablet Take 1 tablet by mouth at bedtime. ? nystatin (MYCOSTATIN) cream Apply topically. ? sodium hypochlorite (DAKIN'S, HALF-STRENGTH,) external solution Irrigate with as directed daily. ? triamcinolone (KENALOG) 0.1 % ointment Apply topically. ? warfarin (COUMADIN) 10 MG tablet Take 10 mg by mouth daily. No current facility-administered medications on file prior to visit. Family History Problem Relation Age of Onset ? Hypertension Mother ? Transient ischemic attack Mother ? Thyroid disease Mother reports that she has never smoked. She has never used smokeless tobacco. She reports previous alcohol use. She reports that she does not use drugs. Review of Systems: Negative except pressure ulcer OBJECTIVE: Vitals: 02/19/20 1448 BP: (!) 164/110 Patient Site: Left Arm Patient Position: Sitting Cuff Size: Adult Regular Pulse: 84 Temp: 98 ??F (36.7 ??C) TempSrc: Oral There is no height or weight on file to calculate BMI. EXAM: GENERAL: This is a well-developed 75 y.o. female who appears her stated age HEAD: normocephalic Buttock: wound as below goo granulation VASCULAR: Pulses intact, symmetrical upper and lower extremities. VASC Wound 05/15/19 Buttocks (Active) Pre Size Length 3 02/19/20 1400 Pre Size Width 4.5 02/19/20 1400 Pre Size Depth 4 02/19/20 1400 Pre Total Sq cm 13.5 02/19/20 1400 Post Size Length 4 02/03/20 1500 Post Size Width 5 02/03/20 1500 Post Size Depth 4.7 02/03/20 1500 Post Total Sq cm 20 02/03/20 1500 Undermined no 12/12/19 0900 Tunneling no 12/12/19 0900 Description red 01/09/20 1300 LABS: Lab Results Component Value Date WBC 7.3 06/04/2019 HGB 13.8 06/04/2019 HCT 41.5 06/04/2019 MCV 92 06/04/2019 PLT 262 06/04/2019 INR/Prothrombin Time No results found for: HGBA1C Lab Results Component Value Date ALT 15 06/04/2019 AST 21 06/04/2019 ALKPHOS 112 06/04/2019 BILITOT 0.7 06/04/2019 Assessment/Plan: 1. Pressure injury of left ischium, stage 4 (H) Wound looks clean at this time point I would not recommend any debridement does not appear to have any abscess or undermining. At this time point we will get the wound VAC back in place I think that will be a good option for patient and the family is to be set up through home health care. - Change dressing No follow-ups on file. Candido Bergeron MD General Surgery [phone] Vascular Surgery [phone] Patient Instructions - HE - Zeenat Link - 02/19/2020 3:00 PM CDT Images from the original note were not included. Patient Instructions by Zeenat Link LPN at 02/19/2020 3:00 PM Author: Zeenat Link LPN Service: -- Author Type: Licensed Nurse Filed: 02/19/2020 3:14 PM Encounter Date: 02/19/2020 Status: Addendum Slip Bridge Operator: Zeenat Link LPN (Licensed Nurse) Related Notes: Original Note by Zeenat Link LPN (Licensed Nurse) filed at 02/19/2020 3:10 PM Patient Education Please continue use of wound vac as ordered. Negative Pressure Wound Therapy Negative pressure wound therapy (NPWT) is a type of treatment to help wounds heal. It's also known as vacuum-assisted wound closure. During the treatment, a device lowers air pressure on the wound. This can help the wound heal more quickly. Understanding NPWT A NPWT device has several parts. A foam or gauze dressing is put directly on the wound. The dressingis changed every 24 to 72 hours. An adhesive film covers and seals the dressing and wound. A drainage tube leads from under the adhesive film and connects to a portable vacuum pump. This pump removes air pressure over the wound. It may do this constantly. Or it may do it in cycles. During the treatment, youll need to carry the portable pump everywhere you go. Why NPWT is used You might need this therapy for a recent traumatic wound. Or you may need it for a chronic wound. This is a wound that does not heal the way it should over time. This can happen with wounds in people who have diabetes. You may need NPWT if youve had a recent skin graft. And you may need it for a largewound. Large wounds can take a longer time to heal. NPWT may help your wound heal more quickly by: ?? Draining extra fluid from the wound ?? Reducing swelling ?? Reducing bacteria in the wound ?? Keeping your wound moist and warm ?? Helping draw together wound edges ?? Increasing blood flow to your wound ?? Decreasing inflammation NPWT offers some other advantages over other types of wound care. It may decrease your overall discomfort. The dressings usually need to be changed less often. And they may be easier to keep in place. Risks of NPWT Negative pressure wound therapy has some rare risks, such as: ?? Bleeding (which may be severe) ?? Wound infection ?? An abnormal connection between the intestinal tract and the skin (enteric fistula). This is usually a problem only if the NPWT is used on an open belly wound that was unable to be closed. Proper training in dressing changes can help reduce the risk for these complications. Also, your healthcare provider will carefully evaluate you to make sure you are a good candidate for the therapy. Certain problems can increase your risk for complications. These include: ?? Exposed organs or blood vessels ?? High risk of bleeding from another medical problem ?? Wound infection ?? Nearby bone infection ?? wound tissue ?? Cancer tissue ?? Fragile skin, such as from aging or longtime use of topical steroids ?? Allergy to adhesive ?? Very poor blood flow to your wound ?? Wounds close to joints that may reopen because of movement Your healthcare provider will discuss the risks that apply to you. Make sure to talk with him or herabout all of your questions and concerns. Getting ready for NPWT You likely wont need to do much to get ready for your wound therapy. In some cases, you may need to wait a while before having this therapy. For example, your healthcare provider may first need to treat an infection in your wound. or damaged tissue may also need to be removed from your wound. You or a caregiver may need training on how to use the wound NPWT device. This is done if you will be able to have your wound vacuum therapy at home. In other cases, you may need to have your wound vacuum therapy in a healthcare facility. On the day of your procedure A healthcare provider will cover your wound with foam or gauze wound dressing. An adhesive film willbe put over the dressing and wound. This seals the wound. The foam connects to a drainage tube, which leads to a vacuum pump. This pump is portable. When the pump is turned on, it draws fluid through the foam and out the drainage tubing. The pump may run constantly, or it may cycle off and on. Your exact setup will depend on the specific type of wound vacuum system that you use. Managing your wound You may need the dressing changed about once a day. You may need it changed more or less often, depending on your wound. You or your caregiver may be trained to do this at home. Or it may be done by a visiting healthcare provider. Your provider may prescribe a pain medicine. This is to prevent or reduce pain during the dressing change. You will likely need to use the NPWT system for several weeks or months. During this time, youll carry the portable pump everywhere you go. Nutrition for wound healing During this time, make sure you follow a healthy diet. This is needed so the wound can heal and to prevent infection. Your healthcare provider can tell you more about what to include in your diet during this time. Follow up with your healthcare provider if you have a medical condition that led to your wound, suchas diabetes. Your provider can help you prevent future wounds. Follow-up care Your healthcare provider will carefully keep track of your healing. Make sure to keep all follow-up appointments. When to call your healthcare provider Call your healthcare provider right away if you have any of these: ?? Fever of 100.4??F (38.0??C) or higher, or as directed by your healthcare provider ?? Increased redness, swelling, or warmth around wound ?? Increased pain ?? Bright red blood or blood clots in tubing or the collection chamber of the NPWT device Date Last Reviewed: 09/14/2018 ?? [id number] [employer]. [address] [place] [address]. All rights reserved. This information is not intended as a substitute for professional medical care. Always follow your healthcare professional's instructions. How to care for your wound Cleanse wound with saline sent to you with your supplies or a wound wash found at the pharmacy. ?? Pat dry the wound with 4x4 gauze ?? Apply the wound vac at 125mmHg ?? Change dressinx/week, every Monday, Monday, and Monday ?? Good nutrition is important for wound healing. I recommend increasing your protein. You can do this through your diet, nutritional supplements, and/or protein powder. It is ok to continue current wound care treatment/products for the next 2-3 days until new wound care supplies are ordered and arrive. If longer than this please contact our office. Please call the [facility] before substituting any product Call our clinic nurse at [phone] if there is an increase in drainage, pain, redness, or the wound size increases. This maybe a sign of infection and require attention prior to the next appointment documented in this encounter Plan of Treatment Upcoming Encounters Date Type Specialty Care Team Description 11/15/2022 Virtual Visit Haylie Wakefield, [facility] [address] [place], [place] [id number] (Wo rk) 11/15/2022 Virtual Visit [place] [address] [place] [address] [place] [address] (Wo rk) 03/03/2023 Virtual Visit Neurology Erlinda Barber MD [address] [facility] [address] [place], [place] [address] (Wo rk) documented as of this encounter Visit Diagnoses Diagnosis Pressure injury of left ischium, stage 4 (H) documented in this encounter Additional Health Concerns Assessment Noted Time PHQ-9 Depression Total Score: 4 04/12/2019 7:03 AM CDT documented as of this encounter Care Teams Processing Engineer Relationship Specialty Start Date End Date Jaiden Holcomb PCP - General Internal Medicine 02/13/2010/03 MD Jayesh [address] [facility] [place] [id number] Chastity Montero MD Dermatology 09/23/[address] [place] [address] [address] [place] [address] Johnnie Alcocer MD Surgeon General Surgery 03/23/17 [address] [facility] [address] [place], [place] [id number] Danni Marcus, CHANDLER Personal Advocate & 01/09/1901/17 Liaison (PAL) Fernando, Ea Complex 04/23/19 Svetlana Osman, Pharmacist Pharmacotherapy 04/23/19 [facility] [address] [place] [id number] Haylie Cheung, Pharmacist Pharmacist 09/11/19 [facility] [address] [place] [address] Galdino Valdez MD Assigned PCP 11/10/19 05/23/20 [address] [place], [place] [id number] Opal, Assigned Sleep 05/08/20 03/27/21 Kendall Meehan MD Provider [address] [place] [address] Erlinda Barber MD Assigned Neuroscience 05/08/20 01/26/21 [address] [facility] [address] [place] [address] Jaiden Holcomb Assigned PCP 05/24/20 MD Jayesh [address] [place] [address] documented as of this encounter
--- OUTSIDE RECORDS SUMMARY | 2022-06-15 12:54 | XMS_ITS | Encounter Summary ---
:1945 Author Organization [place] Address [address] [place] [address] Care Team Providers Name Role Phone Chastity Montero MD Unavailable [phone] Johnnie Alcocer MD Unavailable Danni Marcus RN Unavailable Unavailable Mtm, Ea Complex Unavailable Unavailable Svetlana Osman [facility] Unavailable [phone] Haylie Cheung [facility] Unavailable [phone] Galdino Valdez MD Unavailable Jaiden Holcomb MD Primary Care Provider [phone] Kendall Joseph MD Unavailable Erlinda Barber MD Unavailable Jaiden Holcomb MD Unavailable Reason for Visit Reason Comments Other left IT ulcer; 2 months foll ow up Encounter Details Date Type Department Care Team Description 03/12/2020 Office Visit - [facility] Kajal Huggins Pre ssure injury of left ischium, stage 4 (H); [facility] MD Amari Leg swelling; [place] [address] [facility] Lymphedema of both lower ext remities; [address] Venous hypertension of lower extremity, bilateral; [address] [place], [place] Morbid obesity with BMI of 5 0.0-59.9, adult (H) [place] [address] [phone] Social History Tobacco Use Types Packs/Day Years [...] Sign Reading Time Taken Comments Blood Pressure 112/64 03/12/2020 3:13 PM CDT left wris t Pulse 68 03/12/2020 3:13 PM CDT Temperature 36.7 ??C (98.1 ??F) 03/12/2020 3:13 PM CDT Respiratory Rate 12 03/12/2020 3:13 PM CDT Oxygen Saturation - - Inhaled Oxygen Concentration - - Weight - - Height 170.2 cm (5' 7) 03/12/2020 3:13 PM CDT Body Mass Index - - documented in this encounter Progress Notes Kajal Huggins MD - 03/12/2020 3:15 PM CDT Images from the original note were not included. Progress Notes by Kajal Huggins MD at 03/12/2020 3:15 PM Author: Kajal Huggins MD Service: -- Author Type: Physician Filed: 03/12/2020 4:32 PM Encounter Date: 03/12/2020 Status: Signed Dental Professional: Kajal Huggins MD (Physician) Date of Service: 03/12/2020 Date last seen by Dr. Hugigns: 01/09/2020 PCP: Doris Lai MD Impression: ?? 1. Left ischial ulceration chronic-33% improvement in size in last month, but depth still a concern. 2. Hypoalbuminemia 3. Bilateral leg swelling with some slight acquired lymphatic dysfunction 4. 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 History of necrotizing fasciitis 6. History [...] decrease edge senescence. Total excisional debridement was 21 sq cm into the muscle/fascia. Ulcer was improved afterwards and pillowcase cleaner. Measures were as noted on the flow sheet . No bone was palpated. 3. Wound treatment will include irrigation and dressings to promote autolytic debridement and will be: Wound Pressure Treatment (NWPT) when supplies are available. Change NWPT 3 times / week. Irrigate wound with hibiclens wash and NS and clean surrounding skin with Normal Saline, or wound cleanser, orsoap and water. ??Rinse with water or saline. ??Apply skin barrier to klever-wound tissue. Pack endoform into deep areas of ulcer (may cut in pieces for better placement) Then gently place foam into wound bed. Cover with transparent drape and affix negative pressure pad.K.C.I. V.A.C. Settings: 125mmHg: Continuous.May adjust pressure from 110mmHg to 150 mmHg to accommodate comfort or wound drainage.If fo am adheres to wound, may use a single layer, wide meshed, non-adherent dressing (e.g. Adaptic gauze,Aquaphor, ) in wound bed prior to foam placement.Back-Up Plan: ??When NWPT not available, place moist gauze in wound bed, cover with appropriate dressing to keep wound bed moist. ??Change 1-2 times daily until negative pressure can be reapplied. 4. She will continue to use Flexitouch. 5. Continue modified exercise and compression. 6. Seeing bariatrics soon. 7. Patient will follow up with Patience Fitzpatrick to continue wound cares. I will see in about 5 months. Time spent with patient 15 minutes with greater than 50% time in consultation, education and coordination of care, excluding procedures. CChief Complaint: Left IT pressure ulcer History of Present Illness: Charlette Brush returns to the [facility] for her [...] large and how overweight she was. She had also seen Dr. Mindy Biswas on 08/23/2018 who also felt that she was not a good surgical candidate due to high risk of dehiscence or failure. She was referred to me because of continued problems healing. Patience Toussaint got a number of nutritional labs and inflammatory labs. Prealbumin was slightly decreasedat 16.4. ESR was slightly elevated at 23 but much improved from a year ago. CRP was 0.7 and now normal. Vitamin A, C, D and zinc levels were normal. In the past she had been treated for lymphedema withfull lymphedema therapy and provided with a lymphedema pump and CircAid for her legs. 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 ??May use barrier cream to protect klever wound skin. ??Change daily. ??May go to every other day if exudate controlled. ??Keep wound warm and moist, not wet or dry. ??Keep pressure off!!!. I also added vitamin B 12 and B6 levels. We discussed use of the Flexitouch. I checked her left AFO brace for [...] Treatment (NWPT) when supplies are available. Change NWPT3 times / week. Irrigate wound with hibiclens [...] be reapplied. She was also going to f ollow up with bariatrics and restart the lymphedema pump. Today she reports she knows her protein stores are low and she is scheduled to see the harbor boat pilot in March after seeing Dr. Lala for bariatric medicine 03/27/2020. She has not had a fever and is feeling good. Past Medical History: Diagnosis Date ? Acute [...] Patient has appointment with Retina Specialist at [facility] on 01/11. 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 ? Morbid obesity (H) [...] placed for Dr. Kajal Huggins at [facility] in [place] per patient request. She has contact i [...] , Rfl: ? ampicillin-sulbactam (UNASYN) 3 gram SolR, , Disp: , Rfl: ? ascorbic acid, vitamin C, (VITAMIN C) 500 MG tablet, Take 500 mg by mouth., Disp: , Rfl: ? atenolol (TENORMIN) 25 MG tablet, Take 25 mg by mouth 2 (two) times a day., Disp: , Rfl: ? calcium polycarbophil (FIBERCON) 625 mg tablet, Take 1,250 mg by mouth 3 (three) times a day., Disp: , Rfl: ? [...] mg by mouth., Disp: , Rfl: ? furosemide (LASIX) 40 MG tablet, Take 20-40 mg by mouth., Disp: , Rfl: ? [...] by mouth daily., Disp: , Rfl: ? kzfrkoeupyjx-hvtegkdh-tqrtrn (CEROVITE SENIOR) tablet, Take 1 tablet by mouth at bedtime., Disp: ,Rfl: ? nystatin (MYCOSTATIN) cream, Apply topically., Disp: , Rfl: ? sodium hypochlorite (DAKIN'S, HALF-STRENGTH,) external solution, Irrigate with as directed daily.,Disp: , Rfl: ? triamcinolone (KENALOG) 0.1 % ointment, Apply topically., Disp: , Rfl: ? warfarin (COUMADIN) 10 MG tablet, Take 10 mg by mouth daily., Disp: , Rfl: Allergies Allergen Reactions ? Cephalexin ? Ciprofloxacin [...] file Gets together: Not on file Attends pentecostalism service: Not on file Active member of [...] PELVIS WITHOUT AND WITH IV CONTRAST LOCATION: [facility] DATE/TIME: 05/24/2019 12:03 PM ?? INDICATION: Pelvis [...] indicated Lab Results Component Value Date SEDRATE 23 (H) 12/11/2019 Lab Results Component Value Date CRP 0.7 12/11/2019 Lab Results Component Value Date CREATININE 0.62 06/04/2019 No results found for: HGBA1C Lab Results Component Value Date BUN 23 06/04/2019 Lab Results Component Value Date ALBUMIN 3.3 (L) 06/04/2019 Vitamin D, Total (25-Hydroxy) Date Value Ref Range Status 12/11/2019 49.7 30.0 - 80.0 ng/mL Final No results found for: TSH Lab Results Component Value Date WBC 7.3 06/04/2019 HGB 13.8 06/04/2019 HCT 41.5 06/04/2019 MCV 92 06/04/2019 PLT 262 06/04/2019 Ref Range & Units 12/11/19 1213 Prealbumin [...] Glu 90 Hgb 14.7 Physical Exam: Vitals: 03/12/20 1513 BP: 112/64 Pulse: 68 Resp: 12 Temp: 98.1 ??F (36.7 ??C) BMI 55.28 Weight 353 lbs (12/12/2019) Circumferential measures: No flowsheet data found. VASC Wound 05/15/19 Buttocks (Active) Pre Size Length 5 03/12/20 1500 Pre Size Width 4 03/12/20 1500 Pre Size Depth 5 03/12/20 1500 Pre Total Sq cm 20 03/12/20 1500 Post Size Length 4 02/03/20 1500 Post Size Width 5 02/03/20 1500 Post Size Depth 4.7 02/03/20 1500 Post Total Sq cm 20 02/03/20 1500 Undermined no 12/12/19 0900 Tunneling no 12/12/19 0900 Description pink 03/12/20 1500 Prodcut Used Negative pressure 03/12/20 1500 General: 75 y.o. female in no apparent distress. Psych: Alert and oriented x 3. Cooperative. Affect normal. HEENT: Atraumatic, normocephalic Integumentary: Ulceration now measures 4.0 X 5.0 cm X 3.9 cm depth. Medical Office Secretary. Continues with about 65% granulation tissue. Ebole continues at edges. Moderate serosanguinous drainage and no odor. It is 33% smaller in the last month, but depth is still a concern. 12/12/2019 L IT 12/23/2019 01/08/2020 03/12/2020 Kajal Huggins MD, Founding Diplomate ABWMS, FACCWS, FAAPMR [facility] [phone] This note was dictated using a voice recognition software. Any grammatical or context distortion areunintentional and inherent to the software. documented in this encounter Miscellaneous Notes Patient Instructions - RON - Patience Martinez RN - 03/12/2020 3:15 PM CDT Wound Care: Wound Pressure Treatment (NWPT) [...] pad.K.C.I. V.A.C. Settings:125mmHg: Continuous.May adjust pressure from 110mmHg to 150 [...] and compression. Follow up with bariatrics soon. Follow up with Patience Toussaint CNP, to continue wound cares. Dr. Huggins will see in about 5 months. documented in this encounter Plan of Treatment Upcoming Encounters Date Type Specialty Care Team Description 11/15/2022 Virtual Visit Pharm Haylie Gonzalez, [facility] [address] [place] [address] (Wo rk) 11/15/2022 Virtual Visit [place] [address] [place] [address] [place] [address] (Wo rk) 03/03/2023 Virtual Visit Neurology Erlinda Barber MD [address] [place] [address] 295 [place] [address] (Wo rk) documented as of [...] documented as of this encounter Care Teams Clinical Lab Clerk Relationship Specialty Start Date End Date Jaiden Holcomb PCP - General Internal Medicine 02/13/2010/03 MD Jayesh [address] [place] [address] [place] [address] Chastity Montero MD Dermatology 09/23/14 [address] [facility] 98 [place], [place] [address] Johnnie Alcocer MD Surgeon General Surgery 03/23/[address] [place], [place] [address] Danni Marcus, RN Personal Advocate & 01/09/1901/17 Liaison (PAL) Fernando, Ea Complex 04/23/19 Svetlana Osman, Pharmacist Pharmacotherapy 04/23/19 [facility] [address] [place] [address] Haylie Cheung, Pharmacist Pharmacist 09/11/19 [facility] [address] [place] [phone] Galdino Valdez MD Assigned PCP 11/10/19 05/23/20 [address] [place] [address] Opal, Assigned Sleep 05/08/20 03/27/21 Kendall Meehan MD Provider [address] [place] [address] Erlinda Barber MD Assigned Neuroscience 05/08/20 01/26/21 [address] [address] [facility] [address] [place] [address] Jaiden Holcomb Assigned PCP 05/24/20 MD Jayesh [address] [place], [place] [phone] documented as of this encounter
--- OUTSIDE RECORDS SUMMARY | 2022-06-15 12:54 | XMS_ITS | Encounter Summary ---
:1945 Author Organization [place] Address [address] [place] [address] Care Team Providers Name Role Phone Chastity Montero MD Unavailable [phone] Johnnie Alcocer MD Unavailable Danni Marcus RN Unavailable Unavailable Mtm, Ea Complex Unavailable Unavailable Svetlana Osman [facility] Unavailable [phone] Haylie Cheung [facility] Unavailable [phone] Galdino Valdez MD Unavailable Jaiden Holcomb MD Primary Care Provider [phone] Kendall Joseph MD Unavailable Erlinda Barber MD Unavailable Jaiden Holcomb MD Unavailable Encounter Details Date Type Department Care Team Description 03/24/2020 [facility] Braxton Lala, [facility] and MD Bariatrics Care [facility] [place] [address] [address] [place], [place] [address] [address] [place], [place] [phone] [address] (Work) [phone] Social History Tobacco Use Types Packs/Day Years [...] Virtual Visit Pharm D Haylie Cheung, [facility] [address] [place] [address] (Wo rk) 11/15/2022 Virtual Visit IM/Peds Yane Barraza MD [address] [facility] [place] [id number] (Wo rk) 03/03/2023 Virtual Visit Neurology Erlinda Barber MD [address] [facility] 295 [place] [address] (Wo rk) documented as of this encounter Visit Diagnoses Not on filedocumented in this encounter Additional Health Concerns Assessment Noted Time PHQ-9 Depression Total Score: 4 04/12/2019 7:03 AM CDT documented as of this encounter Care Teams Engraver Tender Relationship Specialty Start Date End Date Jaiden Holcomb PCP - General Internal Medicine 02/13/2010/03 MD Jayesh [address] [place] [address] Chastity Montero MD Dermatology 09/23/14 [address] [facility] 98 [place] [address] Johnnie Alcocer MD Surgeon General Surgery 03/23/17 [address] [facility] [address] [place], [place] [phone] Danni Marcus, CHANDLER Personal Advocate & 01/09/1901/17 Liaison (PAL) Fernando, Ea Complex 04/23/19 Svetlana Osman, Pharmacist Pharmacotherapy 04/23/19 [facility] [address] [place] [address] Haylie Cheung, Pharmacist Pharmacist 09/11/19 [facility] [address] [place] [address] Galdino Valdez MD Assigned PCP 11/10/19 05/23/20 [address] [place], [place] [phone] Opal, Assigned Sleep 05/08/20 03/27/21 Kendall Meehan MD Provider [address] [place] [address] Erlinda Barber MD Assigned Neuroscience 05/08/20 01/26/[address] [facility] [address] [facility] [address] [place] [address] Jaiden Holcomb Assigned PCP 05/24/20 MD Jayesh 909 [place] [address] (work) documented as of this encounter
--- OUTSIDE RECORDS SUMMARY | 2022-06-15 12:54 | XMS_ITS | Encounter Summary ---
:1945 Author Organization [place] Address [address] [place] [address] Care Team Providers Name Role Phone Chastity Montero MD Unavailable [phone] Johnnie Alcocer MD Unavailable Danni Marcus RN Unavailable Unavailable Mtm, Ea Complex Unavailable Unavailable Svetlana Osman [facility] Unavailable [phone] Haylie Cheung [facility] Unavailable [phone] Galdino Valdez MD Unavailable Jaiden Holcomb MD Primary Care Provider Reason for Visit Consultation (Routine) - Closed Specialty Diagnoses / Procedures Referred By Contact Refer red To Contact Diagnoses Foot drop, left Injury of left sciatic nerve, subsequent encounter Jaiden Holcomb [facility] MD Jayesh [address] [facility] [place] [address] Referral ID Status Reason Start Date Expiration Date Visits Requ ested Visits Authorized [id number] Closed 02/19/2020 02/18/2021 1 1 Encounter Details Date Type Department Care Team Description 03/09/2020 [facility] Jaiden Holcomb MD [address] [place] [address] Sciatic neuropathy, [address] [place] [address] Reggie Thompson MD [address] [place] [address] left (Primary Dx) 3rd [place] [address] Social History Tobacco Use Types [...] documented as of this encounter Progress Notes Reggie Thompson MD - 03/09/2020 2:15 PM CDT Images from the original note were not included. [facility] Nerve Conduction & EMG Report Patient: Charlette Brush Date of : 1945 Age: 75 Years 2 Months Gender: Female History & Examination: 75 year old woman with chronic left leg weakness since hip surgery in 2017. Evaluate for sciatic neuropathy. Techniques: Sensory and motor conduction studies were done with surface recording electrodes. EMG was done with a concentric needle electrode. Results: Nerve conduction studies: 1. Left sural and superficial peroneal sensory responses are absent. 2. Right sural sensory response is probably normal considering age and degree of lymphedema. 3. Left radial sensory response is normal. 4. Left peroneal-EDB and tibial-AH motor responses are absent. 5. Right peroneal-EDB and left median-APB motor responses are normal. 6. Note made of marked lymphedema. Needle EM. Fibrillation potentials and positive sharp waves were seen in the right TA and gastrocnemius muscles. 2. No MUPs were seen in the right TA and gastrocnemius muscles. 3. More extensive needle EMG was not performed due to anticoagulation therapy (coumadin). Interpretation: This is an abnormal but limited [...] sciatic nerve. This is poor prognostic indicator. Clinical correlation is recommended. Reggie Thompson MD Department of Neurology Sensory NCS Nerve / Sites Rec. Site Onset Peak Ref. PRINT DESIGNER Amp Ref. PP Amp Dist Fred Ref. Temp ms ms ms ??V ??V ??V cm m/s m/s ??C L RADIAL - Snuff Forearm Snuff 1.56 2.03 21.5 15.0 32.0 10 64.0 48.0 33.5 L SURAL - Lat Mall 60 Calf (edema) Ankle NR NR NR 5.0 NR 14 NR 38.0 32.6 R SURAL - Lat Mall 60 Calf Ankle 2.45 3.28 2.0 5.0 2.3 14 57.2 38.0 L SUP PERONEAL Lat Leg Gaspar NR NR NR NR 12.5 NR 38.0 32.4 Motor NCS Nerve / Sites Rec. Site Lat Ref. Amp Ref. Rel Amp Dist Fred Ref. Dur. Area Temp. ms ms mV mV % cm m/s m/s ms % ??C L MEDIAN - APB Wrist APB 3.59 4.40 8.4 5.0 100 8 5.99 100 34.4 Elbow APB 7.14 8.0 95.4 19 53.6 48.0 6.41 83.7 34 R DEEP PERONEAL - EDB Ankle EDB 4.06 6.00 2.6 2.5 100 8 4.22 100 27 L DEEP PERONEAL - EDB 60 (lymphedema)Ankle EDB NR 6.00 NR 2.0 NR 8 NR NR 32.4 L TIBIAL - AH (lymphedema)Ankle AH NR 6.00 NR 4.0 NR 8 NR NR 32.5 EMG Summary Table Spontaneous MUAP Recruitment IA Fib/PSW Fasc H.F. Amp Dur. PPP Pattern L. VAST LATERALIS N None None None N N None Normal L. TIB ANTERIOR Increased 3+ None None L. GASTROCN (MED) Increased 3+ None None documented in this encounter Plan of Treatment Upcoming Encounters Date Type Specialty Care Team Description 11/15/2022 Virtual Visit Pharm Haylie Gonzalez, [facility] [address] [facility] [address] [place] [phone] (Wo rk) 11/15/2022 Virtual Visit IM/Peds Yane Barraza MD [address] [facility] [address] [place] [phone] (Wo rk) 03/03/2023 Virtual Visit Neurology Erlinda Barber MD [address] [facility] [address] [place], [place] [address] (Wo rk) documented as of this encounter Procedures Procedure Name Priority Date/Time Associated Diagnosis Comme nts HC NCS MOTOR W OR W/O Routine 03/09/2020 4:37 PM CDT Sciatic n europathy, F-WAVE, 7 OR 8 left HC NEEDLE EMG EA Routine 03/09/2020 4:37 PM CDT Sciatic neurop athy, EXTREMITY W/PARASPINAL left AREA LIMITED documented in this encounter Visit Diagnoses Diagnosis Sciatic neuropathy, left - Primary documented in this encounter Additional Health Concerns Assessment Noted Time PHQ-9 Depression Total Score: 4 04/12/2019 7:03 AM CDT documented as of this encounter Care Teams Recreation Attendant Relationship Specialty Start Date End Date Jaiden Holcomb PCP - General Internal Medicine 02/13/2010/03 MD Jayesh [address] [facility] [address] [place], [place] [phone] Chastity Montero MD Dermatology 09/23/14 MD Martha [address] [facility] [address] [place], [place] [address] Johnnie Alcocer MD Surgeon General Surgery 03/23/[address] [place], [place] [phone] Danni Marcus, CHANDLER Personal Advocate & 01/09/1901/17 Liaison (PAL) Fernando, Ea Complex 04/23/19 Svetlana Osman Pharmacist Pharmacotherapy 04/23/19 Era, [facility] [address] [place], [place] [id number] Haylie Cheung, Pharmacist Pharmacist 09/11/19 [facility] [address] [place], [place] [phone] Galdino Valdez MD Assigned PCP 11/10/19 05/23/20 [address] [place], [place] [phone] documented as of this encounter
--- OUTSIDE RECORDS SUMMARY | 2022-06-15 12:54 | XMS_ITS | Encounter Summary ---
:1945 Author Organization [place] Address [address] [place] [address] Care Team Providers Name Role Phone Chastity Montero MD Unavailable [phone] Johnnie Alcocer MD Unavailable Danni Marcus RN Unavailable Unavailable Mtm, Ea Complex Unavailable Unavailable Svetlana Osman [facility] Unavailable [phone] Haylie Cheung [facility] Unavailable [phone] Galdino Valdez MD Unavailable Jaiden Holcomb MD Primary Care Provider [phone] Kendall Joseph MD Unavailable Erlinda Barber MD Unavailable Jaiden Holcomb MD Unavailable Reason for Visit Reason Comments Other wellness screening tool Encounter Details Date Type Department Care Team Description 02/18/2020 Communication - [facility] Candido Bergeron ([facility] MD Ivanna screening tool) [address] [place] [address] [phone] Social History Tobacco Use Types Packs/Day Years [...] Notes Telephone Encounter - Yanet Gutiérrez - 02/18/2020 11:52 AM CDT In the past 14 days have you been in contact with anyone with Covid 19 or Suspected of Covid 19? no Have you been experiencing any of the following symptoms? ?? Fever? no ?? Cough? no ?? Shortness of breath? no ? If yes, is this a change? no ?? Skin rash? no In the past 30 days have you traveled internationally: no documented in this encounter Plan of Treatment Upcoming Encounters Date Type Specialty Care Team Description 11/15/2022 Virtual Visit Haylie Wakefield, [facility] [address] [place] [address] (Wo rk) 11/15/2022 Virtual Visit IM/Peds Yane Barraza MD [address] [facility] [place] [phone] (Wo rk) 03/03/2023 Virtual Visit Neurology Erlinda Barber MD [address] [facility] 295 [place] [address] (Wo rk) documented as of this encounter Visit Diagnoses Not on filedocumented in this encounter Additional Health Concerns Assessment Noted Time PHQ-9 Depression Total Score: 4 04/12/2019 7:03 AM CDT documented as of this encounter Care Teams Acetaldehyde Converter Operator Relationship Specialty Start Date End Date Jaiden Holcomb PCP - General Internal Medicine 02/13/2010/03 MD Jayesh [address] [facility] [address] [place] [phone] Chastity Montreo MD Dermatology 09/23/[address] [place] [address] 98 [place], [place] [address] Johnnie Alcocer MD Surgeon General Surgery 03/23/[address] [place], [place] [address] Danni Marcus, CHANDLER Personal Advocate & 01/09/1901/17 Liaison (PAL) Fernando, Ea Complex 04/23/19 Svetlana Osman, Pharmacist Pharmacotherapy 04/23/19 [place] [address] [place] [address] Haylie Cheung, Pharmacist Pharmacist 09/11/19 [facility] [address] [place] [address] Galdino Valdez MD Assigned PCP 11/10/19 05/23/20 [address] [place], [place] [phone] Opal, Assigned Sleep 05/08/20 03/27/21 Kendall Meehan MD Provider [address] [place] [address] Erlinda Barber MD Assigned Neuroscience 05/08/20 01/26/21 [address] [facility] 295 [place] [address] Jaiden Holcomb Assigned PCP 05/24/20 MD Jayesh 909 [place] [address] documented as of this encounter
--- OUTSIDE RECORDS SUMMARY | 2022-06-15 12:54 | XMS_ITS | Encounter Summary ---
:1945 Author Organization [place] Address [address] [place] [address] Care Team Providers Name Role Phone Chastity Montero MD Unavailable [phone] Johnnie Alcocer MD Unavailable Danni Marcus RN Unavailable Unavailable Mtm, Ea Complex Unavailable Unavailable Svetlana Osman [facility] Unavailable [phone] Haylie Cheung [facility] Unavailable [phone] Galdino Valdez MD Unavailable Jaiden Holcomb MD Primary Care Provider Kendall Joseph MD Unavailable Erlinda Barber MD Unavailable Jaiden Holcomb MD Unavailable Encounter Details Date Type Department Care Team Description 02/14/2020 [facility] MD [employer] [address] [facility] 2945 [facility] [address] [place] [address] [place], [place] [phone] (Wo rk) [address] [phone] Social History Tobacco Use Types Packs/Day Years [...] Virtual Visit Pharm D Haylie Cheung, [facility] [address] [facility] [place] [address] (Wo rk) 11/15/2022 Virtual Visit [place] [address] [place] [address] [place] [phone] (Wo rk) 03/03/2023 Virtual Visit Neurology Erlinda Barber MD [address] [facility] 295 [place] [address] (Wo rk) documented as of this encounter Visit Diagnoses Not on filedocumented in this encounter Additional Health Concerns Assessment Noted Time PHQ-9 Depression Total Score: 4 04/12/2019 7:03 AM CDT documented as of this encounter Care Teams Dean Of Graduate [employer] Relationship Specialty Start Date End Date Jaiden Holcomb PCP - General Internal Medicine 02/13/2010/03 MD Jayesh [address] [facility] [address] [place], [place] [phone] Chastity Montero MD Dermatology 09/23/14 420 [facility] 98 [place] [address] Johnnie Alcocer MD Surgeon General Surgery 03/23/17 [address] [facility] 300 [place], [place] [phone] Danni Marcus, CHANDLER Personal Advocate & 01/09/1901/17 Liaison (PAL) Fernando, Ea Complex 04/23/19 Svetlana Osman, Pharmacist Pharmacotherapy 04/23/19 [facility] [address] [address] Haylie Cheung, Pharmacist Pharmacist 09/11/19 [facility] [address] [place], [place] [id number] Galdino Valdez MD Assigned PCP 11/10/19 05/23/20 [address] [place], [place] [phone] Opal, Assigned Sleep 05/08/20 03/27/21 Kendall Meehan MD Provider [address] [place], [place] [phone] Erlinda Barber MD Assigned Neuroscience 05/08/20 01/26/21 [address] [facility] [address] [place] [address] Jaiden Holcomb Assigned PCP 05/24/20 MD Jayesh 909 [place] [address] documented as of this encounter
--- OUTSIDE RECORDS SUMMARY | 2022-06-15 12:54 | XMS_ITS | Encounter Summary ---
:1945 Author Organization [place] Address [address] [place] [address] Care Team Providers Name Role Phone Chastity Montero MD Unavailable [phone] Johnnie Alcocer MD Unavailable Danni Marcus RN Unavailable Unavailable Mtm, Ea Complex Unavailable Unavailable Svetlana Osman [facility] Unavailable [phone] Haylie Cheung [facility] Unavailable [phone] Galdino Valdez MD Unavailable Jaiden Holcomb MD Primary Care Provider [phone] Reason for Visit Reason Onset Date Comments WOUND CARE 03/12/2020 Lab Result Notice 03/12/2020 Encounter Details Date Type Department Care Team Description 03/12/2020 [facility] Jaiden Holcomb WOUND CARE; Lab Result Clinic Yarelis Mcconnell MD Notice [address] [address] [place] [address] [phone] Social History Tobacco Use Types Packs/Day Years [...] 05/03/2021 organizations such as confucianist groups, unions, [employer] or athletic groups, or school groups? How [...] Telephone Encounter - Danni Marcus RN - 03/18/2020 8:36 AM CDT Reviewed by Dr. Holcomb. Ashli Marcus RN Telephone Encounter - Danni Marcus RN - 03/13/2020 11:20 AM CDT FYI-I spoke with patient and she states that Dr. Huggins deferred to the Bariatric center. Appointment scheduled in March. Ashli Marcus RN Telephone Encounter - Danni Marcus RN - 03/12/2020 11:02 AM CDT Patient notified of this information thru My Chart. I will call patient tomorrow to see what Dr. Huggins recommended at visit today. Ashli Marcus RN Telephone Encounter - Danni Marcus RN - 03/12/2020 10:54 AM CDT I spoke with worsted winder at [facility]. Patient is scheduled for an appointment with Dr. Lala on 03/27 at 1300 (arrival time), and is scheduled with the Sausage Grinder on 04/08 at 1345 (arrival time) This is an in-person visit. Address is [address] [place] [address], [address] in [place]. Ashli Marcus RN Telephone Encounter - Danni Marcus RN - 03/12/2020 10:50 AM CDT Patient is taking Premier Protein supplement drink with 30 gm of protein daily and a high protein bar with 20 gm of protein. Wound clinic has advised getting 100 gm of protein daily. Patient is also eating high protein foods. Today patient has already had 50 gm of protein. Has been doing this for the past 1.5 years. Patient will see Dr. Huggins today at the wound clinic. Will discuss this with her at the visit. Patient is on a waiting list for the transportation broker at [facility]. She had an appointment in October that was cancelled due to Covid pandemic and hasn't been called to reschedule. Has been able to wear the wound vac fairly consistently for the past two weeks, however, when placedyester afternoon doesn't appear to be working well. informatics physician liaison will be in home to evaluate today. Ashli Marcus RN documented in this encounter Plan of Treatment Upcoming Encounters Date Type Specialty Care Team Description 11/15/2022 Virtual Visit Pharm D Haylie Cheung, [facility] [address] [facility] [place] [address] (Lena max) 11/15/2022 Virtual Visit IM/Peds Yane Barraza MD [address] [facility] [place] [phone] (Lena max) 03/03/2023 Virtual Visit Neurology Erlinda Barber MD 420 [facility] 295 [place], [place] [address] (Wo rk) documented as of this encounter Visit Diagnoses Not on filedocumented in this encounter Additional Health Concerns Assessment Noted Time PHQ-9 Depression Total Score: 4 04/12/2019 7:03 AM CDT documented as of this encounter Care Teams [employer] Relationship Specialty Start Date End Date Jaiden Holcomb PCP - General Internal Medicine 02/13/2010/03 MD Jayesh [address] [facility] [place] [address] Chastity Montero MD Dermatology 09/23/14 MD [place] [address] [facility] 98 [place], [place] [address] Johnnie Alcocer MD Surgeon General Surgery 03/23/17 [address] [facility] 300 [place], [place] [address] Danni Marcus, CHANDLER Personal Advocate & 01/09/1901/17 Liaison (PAL) Fernando, Ea Complex 04/23/19 Svetlana Osman Pharmacist Pharmacotherapy 04/23/19 Era, [facility] [address] [place] [address] Haylie Cheung, Pharmacist Pharmacist 09/11/19 [facility] [address] [place] [phone] Galdino Valdez MD Assigned PCP 11/10/19 05/23/20 [address] [place] [address] documented as of this encounter
--- OUTSIDE RECORDS SUMMARY | 2022-06-15 12:55 | XMS_ITS | Encounter Summary ---
:1945 Author Organization [place] Address [address] [place] [address] Care Team Providers Name Role Phone Chastity oMntero MD Unavailable [phone] Johnnie Alcocer MD Unavailable Danni Marcus RN Unavailable Unavailable Mtm, Ea Complex Unavailable Unavailable Svetlana Osman [facility] Unavailable [phone] Haylie Cheung [facility] Unavailable [phone] Galdino Valdez MD Unavailable Galdino Valdez MD Primary Care Provider Jaiden Holcomb MD Primary Care Provider Kendall Joseph MD Unavailable Erlinda Barber MD Unavailable Jaiden Holcomb MD Unavailable [phone] Encounter Details Date Type Department Care Team Description 02/05/2020 [facility] Patience Toussaint NP [facility] 2945 [facility] [address] [place] [address] [address] [place] [address] [place], [place] [phone] (Wo rk) [address] [phone] Social History Tobacco Use Types Packs/Day Years [...] D Haylie Cheung, [facility] [address] [facility] [place] [address] (Wo rk) 11/15/2022 Virtual [place] [address] [place] [address] [place] [phone] (Wo rk) 03/03/2023 Virtual Visit Neurology Erlinda Barber MD 420 [facility] 295 [place], [place] [address] (Wo rk) documented as of this encounter Visit Diagnoses Not on filedocumented in this encounter Additional Health Concerns Assessment Noted Time PHQ-9 Depression Total Score: 4 04/12/2019 7:03 AM CDT documented as of this encounter Care Teams Internal Medicine Nurse Relationship Specialty Start Date End Date Galdino Valdez MD PCP - General Family Practice 11/29/19 02/12/20 [address] [place], [place] [phone] Jaiden Holcomb PCP - General Internal Medicine 02/13/2010/03 MD Jayesh [address] [facility] [address] [place], [place] [phone] Chastity Montero MD Dermatology 09/23/14 MD 420 [facility] 98 [place], [place] [address] Johnnie Alcocer MD Surgeon General Surgery 03/23/17 [address] [facility] 300 [place], [place] [phone] Danni Marcus, CHANDLER Personal Advocate & 01/09/1901/17 Liaison (PAL) [place], Ea Complex 04/23/19 Svetlana Osman, Pharmacist Pharmacotherapy 04/23/19 [facility] [address] [place], [place] [phone] Haylie Cheung, Pharmacist Pharmacist 09/11/19 [facility] [address] [place] [address] Galdino Valdez MD Assigned PCP 11/10/19 05/23/20 [address] [place], [place] [phone] Opal, Assigned Sleep 05/08/20 03/27/21 Kendall Meehan MD Provider [address] [place], [place] [address] Erlinda Barber MD Assigned Neuroscience 05/08/20 01/26/21 [address] [facility] 295 Provider [place], [place] [address] Jaiden Holcomb Assigned PCP 05/24/20 MD Jayesh 909 [place], [place] [address] documented as of this encounter
--- OUTSIDE RECORDS SUMMARY | 2022-06-15 12:55 | XMS_ITS | Encounter Summary ---
:1945 Author Organization [facility] Address [address] [place] [address] Care Team Providers Name Role Phone Chastity Montero MD Unavailable [phone] Johnnie Aloccer MD Unavailable Danni Marcus RN Unavailable Unavailable Kyle [facility] Complex Unavailable Unavailable Svetlana Osman [facility] Unavailable [phone] Haylie Cheung [facility] Unavailable [phone] Galdino Valdez MD Unavailable Jaiden Holcomb MD Primary Care Provider [phone] Reason for Visit Reason Onset Date Comments Lymphedema 02/13/2020 Hypertension 02/13/2020 WOUND CARE 02/13/2020 Encounter Details Date Type Department Care Team Description 02/13/2020 Virtual Visit [facility] Luis Holcomb MD [address] [place] [address] Seizure (H) (Primary Dx); Clinic Yarelis martínez Ea Rn Pal Morbid obesity -- BMI 55.6; [address] Vitamin D deficiency; [address] Essential hypertension, josy gn; [address] Paroxysmal atrial fibrillati on (H); [place] [id number] Pressure ulcer of ischium, l eft, stage IV (H); [phone] Lymphedema of b oth lower extremities; Iron deficiency anemia, unspecified iron deficiency anemia type; Adjustment diso rder with depressed mood; 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 1. Lymphedema/Blood pressure: -Stop the furosemide. -Start the hydrochlorothiazide 12.5mg once daily -Order given for home Blood Pressure monitor. -Check labs in 1 week to review kidneys 2. Anemia: To determine if we need to increase ferrous sulfate to daily we will check labs: hemoglobin, iron and folate. 3. We can message neurology to see what next steps are, such as physical therapy maybe helpful. 4. Genevieve, RNPAL, to reach out to your homecare nurse. We would like to get some labs done and have your blood pressure checked. 5. Please contact Bariatric clinic to determine plan Next care team visit: 3 months. Please feel free to contact us with any questions or concerns you have. You may reach the complex care team directly at [phone]. Please feel free to leave a voicemail if we are not available and we will return your call as soon as possible. My Care Team Members Dr. Dr. Holcomb Nurse PAL(s) Genevieve My Clinical Pharmacist's contact information: Svetlana Osman, PharmD BCPS Medication Therapy Management Practitioner It was great to speak with you today. I value your experience and would be very thankful for your time with providing feedback on our clinic survey. You may receive a survey via email or text message in the next few days. documented in this encounter Progress Notes Jaiden Holcomb MD - 02/13/2020 9:00 AM CDT Assessment/Plan Problem List Items Addressed This Visit Nervous and Auditory Seizure (H) - Primary Continue Keppra 500 mg twice daily. Follows with Dr. Barber (Epilepsy clinic), recent visit on 01/23 with follow up in 6 months recommended. No seizure activity. Respiratory CEFERINO on CPAP Patient followed up with sleep center, and has a new CPAP machine. Is sleeping well. Digestive Morbid obesity -- BMI 55.6 Reports that she had scheduled consultation with bariatric team at [facility] in [place], but bobby flanagan her appointment in October with the [employer] [employer] was cancelled. Will also be seeing Dr. Huggins. Encourage daily exercises of 2-30 minutes (walks or seated home stationary bicycle) Patient will follow-up with clinic to inquire when they will reschedule her appointment. Vitamin D deficiency Patient is taking Vitamin D 5000 international unit(s) daily. Rechecked Vitamin D level in November and level was 49.7. Continue current therapy. 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 Discontinue Lasix. Begin hydrochlorothiazide 12.5 mg daily. Continue losartan 50mg daily and atenolol 25mg twice a day. Check BMP in one week. Will check with HC RN if able to check BP weekly x2 for now. Will try to order for a BP cuff to use for wrist, have HC RN compare cuff with BP check. Patient to check BP monthly if doing well with hydrochlorothiazide change. Relevant Orders Basic metabolic panel (Ca, Cl, CO2, Creat, Gluc, K, Na, BUN) Home Blood Pressure Monitor Paroxysmal atrial fibrillation (H) No report of palpitations or irregular heartbeat. Continue Warfarin therapy which is managed by anticoagulation clinic. Musculoskeletal and Integumentary Lymphedema of both lower extremities Use of Flexitouch pumps daily. Use of velcro wraps. Has air mattress and seat cushion. Role of diuretic in treatment of Lymphedema Currently using Lasix, and asking about alternative or if this is necessary. Lasix discontinued. Will begin hydrochlorothiazide at 12.5 mg daily. Check labs in one week, possibly with HC RN. 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 Patient does walk 20-30 minutes once or twice daily with use of walker. If she doesn't walk, she uses a seated bicycle. Will consult with Dr. Barber for recommendation of further treatment measures. Consider Physical therapy, if ok with Neurologist. Foot drop, left Pressure ulcer of ischium, left, stage IV (H) Seen by Vascular surgery at [facility] in [place]. Has a wound vac in place the past 2 weeks, recent debridement on 02/02. Home care wound care nurse sees patient three times weekly for dressing change. Afebrile Patient would like not to be called an ulcer but rather a wound. Hematologic Iron deficiency anemia, unspecified iron deficiency anemia type Patient has a wound vac in place and reports that the discharge from the wound vac has been bloody.Has had 3 cannisters drain from the wound vac in two weeks. Would like to take Iron supplement daily, currently taking every other day. Will check Hgb, Folate, and Ferritin level. Vitamin B12 checked with [facility] labs and normal. Relevant Orders Hemoglobin Ferritin Folate Behavioral Adjustment disorder with depressed mood Not interested in Behavioral Health at this time. Notes that mood is stable currently. 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 Managed by INR nurse. Anxiety Feels mood is stable at this time. Declines intervention by Behavioral Health Binge eating Plans to establish care with the Bariatric team at [facility] in [place]. Had appointment scheduled in October with [employer] [employer] but this was cancelled due to Covid. Patient will follow-up with clinic to inquire when they will reschedule her appointment. Goal is to ambulate and heal wound to prior to development of wound. No results found for any visits on 02/13/20. Health Maintenance Due Topic Date Due ??? ZOSTER IMMUNIZATION (1 of 2) 01/05/1996 ??? ANNUAL REVIEW OF HM ORDERS 12/27/2019 ??? MEDICARE ANNUAL WELLNESS VISIT 01/10/2020 ??? BMP 01/17/2020 ??? MICROALBUMIN 02/08/2020 Time in:0910 Time out: 0953 Subjective Patient had office appointment with vascular to evaluate wound-Left IT pressure sore. Has been usinga wound vac for the past two and has removed 3 cannisters of fluid. Wound care nurse sees her three times per week. Patient reports no fevers. States that the adhesive is tough on her skin. No increase in Lymphedema. Continues with wraps. Has question about the use of Lasix as she recalls being told that this would not be effective in treatment of Lymphedema. Is asking if another diureticwould be better? Prior to the fall in 2017 had been taking Triamterene/HCTZ 37.5/25 mg. Reports that [facility] has not been checking her blood pressure since October. Blood pressure has been checked only once since October. Blood pressure was 128/64. Asking if blood pressure should be checked more frequently and can we order a blood pressure cuff? Had planned to see bariatrics at [facility] in [place]. Never got to see the [employer] because appointment was cancelled in October due to covid. Plans on seeing Dr. Huggins and also a [employer]. For exercise has been ambulating outside for 20-30 min once or twice per day. When it is too warm, she uses a seated bicycle. No reported seizure activity. Has been sleeping well. Received a new CPAP machine as her old one broke. No report of chest pain or shortness of breath. States that mood is down a little but has been stable. Doesn't feel the need for behavioral health. Asking about Neurology referral to assess left foot drop that occurred after surgery about three years ago. Reports that when she is touched on the upper leg, she has feeling in her foot. Patient hashad sporadic feeling in the foot since initial injury. Is able to ambulate with use of walker. Does have orthotic brace she uses. Is unable to move toes up and down. Has feeling to the heel only. Is unable to move foot up and down. Review of Systems Constitutional: Negative for chills and fever. Cardiovascular: Positive for peripheral edema. Negative for chest pain. History of Lymphedema Gastrointestinal: Negative for constipation and diarrhea. Genitourinary: Positive for frequency and urgency. Negative for dysuria. Due to Lasix use Skin: Positive for wound. Stage 4 left IT pressure sore. Neurological: Positive for seizures. Negative for dizziness. History of one seizure in 02/2019 Psychiatric/Behavioral: The patient is nervous/anxious. Reports this is stable. History Past Medical History: Diagnosis Date ??? [...] LENS IMPLANTATION; Surgeon: Bernabe Crespo MD; Location: [facility] ??? PHACOEMULSIFICATION CLEAR CORNEA WITH STANDARD INTRAOCULAR LENS IMPLANT Right 02/20/2019 Procedure: RIGHT CATARACT EXTRACTION WITH INTRAOCULAR LENS IMPLANTATION; Surgeon: Bernabe Crespo MD; Location: [facility] ? ? TONSILLECTOMY & ADENOIDECTOMY Family [...] were no vitals taken for this visit. This is a video visit-patient doesn't check vitals at home. Physical Exam HENT: Head: Normocephalic. Neurological: Mental Status: She is alert. Psychiatric: Thought Content: Thought content normal. Judgment: Judgment normal. Comments: Irritable for a moment during visit Limited exam due to COVID19 pandemic. I spent greater than 50% of the 43 minutes visit was spent coordinating care regarding patient's recommendations towards lymphedema management, ischial wound/ulcer management, HTN management, follow upof chronic conditions.. Return in about 3 months (around 05/13/2020) for In-Clinic Visit. MTM covisit. Goal: Increase mobility, wound healing, and weight loss with consideration of surgery. Jaiden Holcomb MD [facility] Danni Marcus RN - 02/13/2020 9:00 AM CDT Charlette Brush is a 75 year old female who is being evaluated [...] this service. Patient has given verbal consent for Video visit? Yes How would you like to obtain your AVS? Mail a copy If you are dropped from the video visit, the video invite should be resent to: Text to cell phone: [phone] Will anyone else be joining your video visit? No Video-Visit Details Type of service: Video Visit Video start time: 909 Video End Time:952 Originating Location (pt. Location): Home Distant Location (provider location): [facility] Platform used for Video Visit: [facility] Return in about 3 months (around 05/13/2020) for In-Clinic Visit. Ashli Marcus RN documented in this encounter Miscellaneous Notes Assessment & Plan Note - Danni Marcus RN - 02/13/2020 9:12 AM CDTAssociated Problem(s): Iron deficiency anemia, unspecified iron deficiency anemia type Patient has a wound vac in place and reports that the discharge from the wound vac has been bloody. Has had 3 cannisters drain from the wound vac in two weeks. Would like to take Iron supplement daily, currently taking every other day. Will check Hgb, Folate, and Ferritin level. Vitamin B12 checked with [facility] labs and normal. Assessment & Plan Note - Danni Marcus RN - 02/13/2020 9:11 AM CDTAssociated Problem(s): Vitamin D deficiency Patient is taking Vitamin D 5000 international unit(s) daily. Rechecked Vitamin D level in November and level was 49.7. Continue current therapy. Assessment & Plan Note - Danni Marcus RN - 02/12/2020 4:02 PM CDTAssociated Problem(s): CEFERINO on CPAP Patient followed up with sleep center, and has a new CPAP machine. Is sleeping well. 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 Patient does walk 20-30 minutes once or twice daily with use of walker. If she doesn't walk, she uses a seated bicycle. Will consult with Dr. Barber for recommendation of further treatment measures. Consider Physical therapy, if ok with Neurologist. Assessment & Plan Note - Danni Marcus RN - 02/12/2020 3:59 PM CDTAssociated Problem(s): Binge eating Plans to establish care with the Bariatric team at [facility] in [place]. Had appointment scheduled in October with [employer] but this was cancelled due to Covid. Patient will follow-up with clinic to inquire when they will reschedule her appointment. Assessment & Plan Note - Danni Marcus RN - 02/12/2020 3:58 PM CDTAssociated Problem(s): Anxiety Feels mood is stable at this time. 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 Managed by INR nurse. Assessment & Plan Note - Danni Marcus RN - 02/12/2020 3:55 PM CDTAssociated Problem(s): Adjustment disorder with depressed mood Not interested in Behavioral Health at this time. Notes that mood is stable currently. Assessment & Plan Note - Danni Marcus RN - 02/12/2020 3:54 PM CDTAssociated Problem(s): Lymphedema of both lower extremities Use of Flexitouch pumps daily. Use of velcro wraps. Has air mattress and seat cushion. Role of diuretic in treatment of Lymphedema Currently using Lasix, and asking about alternative or if this is necessary. Lasix discontinued. Will begin hydrochlorothiazide at 12.5 mg daily. Check labs in one week, possibly with HC RN. Assessment & Plan Note - Danni Marcus RN - 02/12/2020 3:38 PM CDTAssociated Problem(s): Pressure ulcer of ischium, left, stage IV (H) Seen by Vascular surgery at [facility] in [place]. Has a wound vac in place the past 2 weeks, recent debridement on 02/02. Home care wound care nurse sees patient three times weekly for dressing change. Afebrile Patient would like not to be called an ulcer but rather a wound. Assessment & Plan Note - Danni Marcus RN - 02/12/2020 3:36 PM CDTAssociated Problem(s): Atrial fibrillation, unspecified type (H) No report of palpitations or irregular heartbeat. Continue Warfarin therapy which is managed by anticoagulation clinic. 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 Discontinue Lasix. Begin hydrochlorothiazide 12.5 mg daily. Continue losartan 50mg daily and atenolol 25mg twice a day. Check BMP in one week. Will check with HC RN if able to check BP weekly x2 for now. Will try to order for a BP cuff to use for wrist, have HC RN compare cuff with BP check. Patient to check BP monthly if doing well with hydrochlorothiazide change. Assessment & Plan Note - Danni Marcus RN - 02/12/2020 3:33 PM CDTAssociated Problem(s): Morbid obesity -- BMI 55-60 Reports that she had scheduled consultation with bariatric team at [facility] in [place], but due to covid her appointment in October with the [employer] was cancelled. Will also be seeing Dr. Huggins. Encourage daily exercises of 2-30 minutes (walks or seated home stationary bicycle) Patient will follow-up with clinic to inquire when they will reschedule her appointment. Assessment & Plan Note - Danni Marcus RN - 02/12/2020 3:32 PM CDTAssociated Problem(s): Seizure (H) Continue Keppra 500 mg twice daily. Follows with Dr. Barber (Epilepsy clinic), recent visit on 01/23 with follow up in 6 months recommended. No seizure activity. documented in this encounter Plan of Treatment Upcoming Encounters Date Type Specialty Care Team Description 11/15/2022 Virtual Visit Haylie Wakefield, [facility] [address] [facility] [place] [address] (Wo rk) 11/15/2022 Virtual Visit IM/Peds Yane Barraza MD [address] [facility] [place] [address] (Wo rk) 03/03/2023 Virtual Visit Neurology Erlinda Barber MD [address] [id number] (Wo rk) documented as of this encounter Results Basic metabolic panel (Ca, Cl, CO2, Creat, Gluc, K, Na, BUN) (03/09/2020 1:49 PM CDT) athologist Signature Sodium 141 133 - 144 03/09/2020 [facility] mmol/L 2:23 PM CDT [facility] Potassium 4.5 3.4 - 5.3 03/09/2020 [facility] mmol/L 2:23 PM CDT [facility] Chloride 109 94 - 109 03/09/2020 [facility] mmol/L 2:23 PM CDT [facility] Carbon Dioxide 29 20 - 32 03/09/2020 [facility] mmol/L 2:23 PM CDT [facility] Anion Gap 3 3 - 14 03/09/2020 [facility] mmol/L 2:23 PM CDT [facility] Glucose 90 70 - 99 03/09/2020 [facility] mg/dL 2:23 PM CDT [facility] Urea Nitrogen 22 7 - 30 03/09/2020 [facility] mg/dL 2:23 PM CDT [facility] Creatinine 0.52 0.52 - 03/09/2020 [facility] 1.04 mg/dL 2:23 PM CDT [facility] GFR Estimate >90 >60 03/09/2020 [facility] mL/min/{1. 2:23 PM CDT [place] 73_m2} [facility] Comment: Non GFR Calc Starting 07/03/2018, serum creatinine ba sed estimated GFR (eGFR) will be calculated using the Chronic Kidney Dise ase Epidemiology Collaboration (CKD-EPI) equation. GFR Estimate If >90 >60 mL/min/{1.73_m2} 03/09/2020 2: 23 PM [facility] Black CDT [facility] Comment: GFR Calc Starting 07/03/2018, serum creatinine ba sed estimated GFR (eGFR) will be calculated using the Chronic Kidney Dise ase Epidemiology Collaboration (CKD-EPI) equation. Calcium 8.8 8.5 - 10.1 mg/dL 03/09/2020 2:23 PM CDT [facility] Specimen Anatomical Collection Method Collection Time Receive d Time (Source) Location / / Volume Laterality Blood specimen 03/09/2020 1:49 PM 020 1:50 (specimen) CDT PM CDT Jaiden Holcomb MD LAB - BLOOD ORDERABLES Performing Organization Address City/[facility]/ZIP Code Phon e Number [address] [address] [facility] Folate (03/09/2020 1:49 PM CDT) athologist Signature Folate 18.9 >5.4 ng/mL 03/09/2020 [facility] 5:19 PM CDT [facility] Specimen Anatomical Collection Method Collection Time Receive d Time (Source) Location / / Volume Laterality Blood specimen 03/09/2020 1:49 PM 020 1:50 (specimen) CDT PM CDT Jaiden Holcomb MD LAB - BLOOD ORDERABLES Performing Organization Address City/[facility]/ZIP Code Phon e Number [facility] [address] [place] [address] [facility] Ferritin (03/09/2020 1:49 PM CDT) athologist Signature Ferritin 100 8 - 252 03/09/2020 [facility] ng/mL 3:07 PM CDT [facility] Specimen Anatomical Collection Method Collection Time Receive d Time (Source) Location / / Volume Laterality Blood specimen 03/09/2020 1:49 PM 020 1:50 (specimen) CDT PM CDT Jaiden Holcomb MD LAB - BLOOD ORDERABLES Performing Organization Address City/[facility]/ZIP Code Phon e Number [address] [address] [facility] Hemoglobin (03/09/2020 1:49 PM CDT) athologist Signature Hemoglobin 14.7 11.7 - 15.7 03/09/2020 [facility] g/dL 1:55 PM CDT [facility] Specimen Anatomical Collection Method Collection Time Receive d Time (Source) Location / / Volume Laterality Blood specimen 03/09/2020 1:49 PM 020 1:50 (specimen) CDT PM CDT Jaiden Holcomb MD LAB - BLOOD ORDERABLES Performing Organization Address City/State/ZIP Code Phon e Number [address] [address] [facility] documented in this encounter Visit Diagnoses Diagnosis Seizure (H) - Primary Other convulsions Morbid obesity -- BMI 55.6 Morbid obesity Vitamin D deficiency Unspecified vitamin D deficiency Essential hypertension, benign Paroxysmal atrial fibrillation (H) Atrial fibrillation Pressure ulcer of ischium, left, stage I V (H) Lymphedema of both lower extremities Iron deficiency anemia, unspecified iron deficiency anemia type Adjustment disorder with depressed mood 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 embolism Anxiety Anxiety state, unspecified Binge eating Anorexia nervosa Weakness of both lower extremities CEFERINO on CPAP Obstructive sleep apnea (adult) (pediatr ic) Foot drop, left Other acquired deformity of ankle and fo ot documented in this encounter Additional Health Concerns Assessment Noted Time PHQ-9 Depression Total Score: 4 04/12/2019 7:03 AM CDT documented as of this encounter Care Teams Wedding Transportation Driver Relationship Specialty Start Date End Date Jaiden Holcomb PCP - General Internal Medicine 02/13/2010/03 MD Jayesh [address] [place] [id number] Chastity Montero MD Dermatology 09/23/14 MD Martha [address] [place] [address] [address] [place], [place] [id number] Johnnie Alcocer MD Surgeon General Surgery 03/23/17 [address] [facility] [address] [place], [place] [phone] Danni Marcus, CHANDLER Personal Advocate & 01/09/1901/17 Liaison (PAL) Fernando, Kyle Complex 04/23/19 Svetlana Osman Pharmacist Pharmacotherapy 04/23/19 Era, [facility] [address] [place] [address] Haylie Cheung, Pharmacist Pharmacist 09/11/19 [facility] [address] [place], [place] [id number] Galdino Valdez MD Assigned PCP 11/10/19 05/23/20 [address] [place] [address] documented as of this encounter
--- OUTSIDE RECORDS SUMMARY | 2022-06-15 12:55 | XMS_ITS | Encounter Summary ---
:1945 Author Organization [place] Address [address] [place] [address] Care Team Providers Name Role Phone Chastity Montero MD Unavailable [phone] Johnnie Alcocer MD Unavailable Danni Marcus RN Unavailable Unavailable Mtm, Ea Complex Unavailable Unavailable Svetlana Osman [facility] Unavailable [phone] Haylie Cheung [facility] Unavailable [phone] Galdino Valdez MD Unavailable Jaiden Holcomb MD Primary Care Provider [phone] Kendall Joseph MD Unavailable Erlinda Barber MD Unavailable Jaiden Holcomb MD Unavailable Encounter Details Date Type Department Care Team Description 02/14/2020 [facility] MD Amari [place] [address] [facility] 2945 [facility] [address] [place] [address] [place], [place] [phone] (Wo rk) [address] [phone] Social History Tobacco Use Types Packs/Day Years [...] D Haylie Cheung, [facility] 1440 [facility] [place] [address] (Wo rk) 11/15/2022 Virtual Visit [place] [address] [place] [address] [place] [id number] (Wo rk) 03/03/2023 Virtual Visit Neurology Erlinda Barber MD 420 [facility] 295 [place] [address] (Wo rk) documented as of this encounter Visit Diagnoses Not on filedocumented in this encounter Additional Health Concerns Assessment Noted Time PHQ-9 Depression Total Score: 4 04/12/2019 7:03 AM CDT documented as of this encounter Care Teams Support Technician Relationship Specialty Start Date End Date Jaiden Holcomb PCP - General Internal Medicine 02/13/2010/03 MD Jayesh [address] [facility] [address] [place], [place] [phone] Chastity Montero MD Dermatology 09/23/14 420 [facility] 98 [place] [address] Johnnie Alcocer MD Surgeon General Surgery 03/23/17 [address] [facility] 300 [place], [place] [phone] Danni Marcus, CHANDLER Personal Advocate & 01/09/1901/17 Liaison (PAL) Fernando, Ea Complex 04/23/19 Svetlana Osman, Pharmacist Pharmacotherapy 04/23/19 [facility] [address] [facility] [place] [address] Haylie Cheung, Pharmacist Pharmacist 09/11/19 [facility] [address] [place], [place] [phone] Galdino Valdez MD Assigned PCP 11/10/19 05/23/20 [address] [place], [place] [phone] Opal, Assigned Sleep 05/08/20 03/27/21 Kendall Meehan MD Provider [address] [place], [place] [phone] Erlinda Barber MD Assigned Neuroscience 05/08/20 01/26/21 [address] [facility] 295 [place] [address] Jaiden Holcomb Assigned PCP 05/24/20 MD Jayesh 909 [place] [address] documented as of this encounter
--- OUTSIDE RECORDS SUMMARY | 2022-06-15 12:55 | XMS_ITS | Encounter Summary ---
:1945 Author Organization [place] Address [address] [place] [address]. [place] [address] Care Team Providers Name Role Phone Chastity Montero MD Unavailable [phone] Johnnie Alcocer MD Unavailable Danni Marcus RN Unavailable Unavailable Mtm, Kyle Complex Unavailable Unavailable Svetlana Osman [facility] Unavailable [phone] Haylie Cheung [facility] Unavailable [phone] Galdino Valdez MD Unavailable Galdino Valdez MD Primary Care Provider Encounter Details Date Type Department Care Team Description 01/16/2020 Anticoagulation Therapy [facility] Galdino Valdez 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 embolism; Visit Clinic Radha Walton MD waterproofing supervisor current use of anticoagulant [address], [address] [place] [address] [phone] Social History Tobacco Use Types Packs/Day Years [...] 05/03/2021 organizations such as advent groups, unions, [employer] or athletic groups, or school groups? How [...] encounter Progress Notes Fadumo Davies RN - 01/16/2020 2:36 PM CDT ANTICOAGULATION MANAGEMENT Patient Name: Charlette Brush Date: 01/16/2020 ASSESSMENT /SUBJECTIVE: Today's INR result of 2.2 is therapeutic. Goal INR of 2.0-3.0 ??? Warfarin dose taken: Warfarin recently held as instructed which may be affecting INR ??? Diet: No new diet changes affecting INR ??? Medication changes/ interactions: No new medications/supplements affecting INR ??? Previous INR: Supratherapeutic ??? S/S of bleeding or thromboembolism: No ??? New injury or illness: No ??? Upcoming surgery, procedure or cardioversion: No ??? Additional findings: Wound debridgement, wound is weeping, PLAN: Spoke with Bhavik Grant , regarding INR result and instructed: Warfarin Dosing Instructions: Continue your current warfarin dose 13 mg on wednesdays and 10 mg all other days Instructed patient to follow up no later than: 1 week Orders given to Homecare nurse/facility to recheck Education provided: Monitoring for bleeding signs and symptoms Juanita, home care, verbalizes understanding and agrees to warfarin dosing plan. Instructed to call the Anticoagulation Clinic for any changes, questions or concerns. (#[phone]) OBJECTIVE: INR Date Value Ref Range Status 01/16/2020 2.2 (A) 0.90 - 1.10 Final No question data found. 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 Anticoagulation Care Providers Provider Role Specialty Phone number Lucero Stevenson MD [facility] Internal Medicine [phone] documented in this encounter Plan of Treatment Upcoming Encounters Date Type Specialty Care Team Description 11/15/2022 Virtual Visit Pharm D Haylie Cheung, [facility] 1440 [facility] [place] [address] (Lena max) 11/15/2022 Virtual Visit [place] [address] [place] [address] [place] [address] (Lena max) 03/03/2023 Virtual Visit Neurology Erlinda Barber MD 420 [facility] 295 [place] [address] (Lena max) documented as of this encounter Procedures Procedure Name Priority Date/Time Associated Diagnosis Comme nts INR Routine 01/16/2020 Results for thi s procedure are in the resu lts section. documented in this encounter Results (ABNORMAL) INR (01/16/2020) P athologist Signature INR 2.2 (A) 0.90 - 1.10 EXTERNAL LAB Specimen (Source) Anatomical Location Collection Method / Collectio n Time Received Time / Laterality Volume Blood specimen 01/16/2020 (specimen) Resulting Agency Comment Home Care Patient Reported LAB - BLOOD ORDERABLES Performing Organization Address City/State/ZIP Code Phon e Number EXTERNAL LAB EXTERNAL LAB External Lab documented in this encounter Visit Diagnoses Diagnosis 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 embolism group home current use of anticoagulant t herapy documented in this encounter Additional Health Concerns Assessment Noted Time PHQ-9 Depression Total Score: 4 04/12/2019 7:03 AM CDT documented as of this encounter Care Teams Land Leasing Information Clerk Relationship Specialty Start Date End Date Galdino Valdez MD PCP - General Family Practice 11/29/19 02/12/20 [address] [place], [place] [phone] Chastity Montero MD Dermatology 09/23/[address] [place] [address] 98 [place], [place] [address] Johnnie Alcocer MD Surgeon General Surgery 03/23/[address] [place], [place] [phone] Danni Marcus, CHANDLER Personal Advocate & 01/09/1901/17 Liaison (PAL) Fernando, Kyle Complex 04/23/19 Svetlana Osman, Pharmacist Pharmacotherapy 04/23/19 [place] [address] [place] [id number] Haylie Cheung, Pharmacist Pharmacist 09/11/19 [facility] [address] [place] [address] Galdino Valdez MD Assigned PCP 11/10/19 05/23/20 [address] [place], [place] [phone] documented as of this encounter
--- OUTSIDE RECORDS SUMMARY | 2022-06-15 12:55 | XMS_ITS | Encounter Summary ---
:1945 Author Organization [place] Address [address] [place] [address] Care Team Providers Name Role Phone Chastity Montero MD Unavailable [phone] Johnnie Alcocer MD Unavailable Danni Marcus RN Unavailable Unavailable Mtm, Ea Complex Unavailable Unavailable Svetlana Osman [facility] Unavailable [phone] Haylie Cheung [facility] Unavailable [phone] Galdino Valdez MD Unavailable Galdino Valdez MD Primary Care Provider Jaiden Holcomb MD Primary Care Provider Kendall Joseph MD Unavailable Erlinda Barber MD Unavailable Jaiden Holcomb MD Unavailable Reason for Visit Reason Comments Other wellness screening Encounter Details Date Type Department Care Team Description 01/31/2020 Communication [facility] Patience Toussaint NP Other ([facility] [address] [place] [address] screening) [place] [id number] [place] [address] [facility] [place] [phone] Social History Tobacco Use Types Packs/Day Years [...] Notes Telephone Encounter - Historical Provider - 01/31/2020 10:40 AM CDT In the past 14 days [...] Team Description 11/15/2022 Virtual Visit Haylie [place], [facility] [address] [facility] [address] (Wo rk) 11/15/2022 Virtual Visit IM[place] [address] [place] [address] [address] [place] [id number] (Wo rk) 03/03/2023 Virtual Visit Neurology Erlinda Barber MD 420 [facility] 295 [place], [place] [phone] (Wo rk) documented as of this encounter Visit Diagnoses Not on filedocumented in this encounter Additional Health Concerns Assessment Noted Time PHQ-9 Depression Total Score: 4 04/12/2019 7:03 AM CDT documented as of this encounter Care Teams Stippler Relationship Specialty Start Date End Date Galdino Valdez MD PCP - General Family Practice 11/29/19 02/12/20 [address] [place], [place] [phone] Jaiden Holcomb PCP - General Internal Medicine 02/13/2010/03 MD Jayesh [address] [facility] [address] [place], [place] [phone] Chastity Montero MD Dermatology 09/23/14 420 [facility] 98 [place], [place] [address] Johnnie Alcocer MD Surgeon General Surgery 03/23/[address] [place], [place] [address] Danni Marcus, CHANDLER Personal Advocate & 01/09/1901/17 Liaison (PAL) Fernando, Ea Complex 04/23/19 Svetlana Osman, Pharmacist Pharmacotherapy 04/23/19 [place] [address] [place], [place] [phone] Haylie Cheung, Pharmacist Pharmacist 09/11/19 [facility] [address] [place], [place] [phone] Galdino Valdez MD Assigned PCP 11/10/19 05/23/20 [address] [facility] [place] [address] Opal, Assigned Sleep 05/08/20 03/27/21 Kendall Meehan MD Provider [address] [place] [address] Erlinda Barber MD Assigned Neuroscience 05/08/20 01/26/21 420 [facility] 295 [place] [address] Jaiden Holcomb Assigned PCP 05/24/20 MD Jayesh 909 [place] [address] documented as of this encounter
--- OUTSIDE RECORDS SUMMARY | 2022-06-15 12:55 | XMS_ITS | Encounter Summary ---
:1945 Author Organization [place] Address [address] [place] [address] Care Team Providers Name Role Phone Chastity Montero MD Unavailable [phone] Johnnie Alcocer MD Unavailable Danni Marcus RN Unavailable Unavailable Mtm, Ea Complex Unavailable Unavailable Svetlana Osman [facility] Unavailable [phone] Haylie Cheung [facility] Unavailable [phone] Galdino Valdez MD Unavailable Galdino Valdez MD Primary Care Provider Jaiden Holcomb MD Primary Care Provider Kendall Joseph MD Unavailable Erlinda Barber MD Unavailable Jaiden Holcomb MD Unavailable [phone] Reason for Visit Reason Comments Other Update Encounter Details Date Type Department Care Team Description 01/30/2020 Communication [facility] Aditi Umanzor Othe r (Update) [facility] HCANDLER [address] [address] Social History Tobacco Use Types [...] this encounter Miscellaneous Notes Telephone Encounter - Aditi Umanzor RN - 01/30/2020 4:20 PM CDT Juanita the nurse from [facility] would like to talk to Dr. Huggins's nurse regarding woundvac. They are having a lot of trouble keeping it in place and they are wondering if it is time to discontinue the vac and try a different dressing. It is also causing Charlette a great deal of stress as her podiatry assistant is unable to touch the pump or dressing and she cannot reach it. Called Juanita back and let her know I will forward message on to Patience Toussaint CNP who has appointmentwith Charlette on 02/03/20. Will evaluate wound at that time. documented in this encounter Plan of Treatment Upcoming Encounters Date Type Specialty Care Team Description 11/15/2022 Virtual Visit Haylie [place], [facility] [address] [place] [id number] (Wo rk) 11/15/2022 Virtual Visit [place] [address] [place] [address] [address] [place] [phone] (Wo rk) 03/03/2023 Virtual Visit Neurology Erlinda Barber MD [address] [place] [address] 295 [place], [place] [address] (Wo rk) documented as of this encounter Visit Diagnoses Not on filedocumented in this encounter Additional Health Concerns Assessment Noted Time PHQ-9 Depression Total Score: 4 04/12/2019 7:03 AM CDT documented as of this encounter Care Teams Citrix Administrator Relationship Specialty Start Date End Date Galdino Valdez MD PCP - General Family Practice 11/29/19 02/12/20 [address] [place], [place] [phone] Jaiden Holcomb PCP - General Internal Medicine 02/13/2010/03 MD Jayesh [address] [place] [address] [address] [place] [id number] Chastity Montero MD Dermatology 09/23/[address] [place], [place] [address] Johnnie Alcocer MD Surgeon General Surgery 03/23/[address] [place] [address] Danni Marcus, CHANDLER Personal Advocate & 01/09/1901/17 Liaison (PAL) Kyle King Complex 04/23/19 Svetlana Osman, Pharmacist Pharmacotherapy 04/23/19 [facility] [address] [place] [address] Haylie Cheung, Pharmacist Pharmacist 09/11/19 [facility] [address] [facility] [address] [place], [place] [phone] Galdino Valdez MD Assigned PCP 11/10/19 05/23/20 [address] [place], [place] [phone] Opal, Assigned Sleep 05/08/20 03/27/21 Kendall Meehan MD Provider [address] [facility] 106 [place] [address] Erlinda Barber MD Assigned Neuroscience 05/08/20 01/26/21 420 [facility] 295 [place] [address] Jaiden Holcomb Assigned PCP 05/24/20 MD Jayesh 909 [place] [address] documented as of this encounter
--- OUTSIDE RECORDS SUMMARY | 2022-06-15 12:55 | XMS_ITS | Encounter Summary ---
:1945 Author Organization [place] Address [address] [facility] [place] [address] Care Team Providers Name Role Phone Chastity Montero MD Unavailable [phone] Johnnie Alcocer MD Unavailable Danni Marcus RN Unavailable Unavailable Mtm, Ea Complex Unavailable Unavailable Svetlana Osman [facility] Unavailable [phone] Haylie Cheung [facility] Unavailable [phone] Galdino Valdez MD Unavailable Galdino Valdez MD Primary Care Provider Encounter Details Date Type Department Care Team Description 01/16/2020 Orders Only [facility] Galdino Valdez, DIAGNOS IS NOT YET Clinic [place] MD DEFINED (Primary Dx) [address] [address] [phone] Social History Tobacco Use Types Packs/Day Years [...] 05/03/2021 organizations such as samaritan groups, unions, [employer] or athletic groups, or school groups? How [...] Pharm Haylie Gonzalez, [facility] 14[address] [facility] [address] [place], [place] [phone] (Wo rk) 11/15/2022 Virtual Visit IM/Peds Yane Barraza MD [address] [facility] [address] [place] [phone] (Wo rk) 03/03/2023 Virtual Visit Neurology Erlinda Barber MD 420 [facility] 295 [place] [address] (Wo rk) documented as of this encounter Procedures Procedure Name Priority Date/Time Associated Diagnosis Comme [facility] RECERTIFICATION QUALIFICATIONS EXAMINER PT Routine 01/17/2020 DIAGNOSIS N OT YET DEFINED documented in this encounter Results RECERTIFICATION QUALIFICATIONS EXAMINER PT (01/17/2020) Narrative This result has an attachment that is no t available. Galdino Valdez MD [employer]PORTS documented in this encounter Visit Diagnoses Diagnosis DIAGNOSIS NOT YET DEFINED - Primary documented in this encounter Additional Health Concerns Assessment Noted Time PHQ-9 Depression Total Score: 4 04/12/2019 7:03 AM CDT documented as of this encounter Care Teams Certified Public Accountant Relationship Specialty Start Date End Date Galdino Valdez MD PCP - General Family Practice 11/29/19 02/12/20 [address] [place], [place] [phone] Chastity Montero MD Dermatology 09/23/14 [address] [facility] 98 [place], [place] [address] Johnnie Alcocer MD Surgeon General Surgery 03/23/[address] [place], [place] [phone] Danni Marcus, CHANDLER Personal Advocate & 01/09/1901/17 Liaison (PAL) [place], Ea Complex 04/23/19 Svetlana Osman, Pharmacist Pharmacotherapy 04/23/19 [facility] [address] [place], [place] [phone] Haylie Cheung, Pharmacist Pharmacist 09/11/19 [place] [address] [place], [place] [phone] Galdino Valdez MD Assigned PCP 11/10/19 05/23/20 [address] [place], [place] [phone] documented as of this encounter
--- OUTSIDE RECORDS SUMMARY | 2022-06-15 12:55 | XMS_ITS | Encounter Summary ---
:1945 Author Organization [place] Address [address] [place] [address]. [place] [address] Care Team Providers Name Role Phone Chastity Montero MD Unavailable [phone] Johnnie Alcocer MD Unavailable Danni Marcus RN Unavailable Unavailable Mtm, Ea Complex Unavailable Unavailable Svetlana Osman [facility] Unavailable [phone] Haylie Cheung [facility] Unavailable [phone] Galdino Valdez MD Unavailable Galdino Valdez MD Primary Care Provider Reason for Visit Reason Comments Orders INR Encounter Details Date Type Department Care Team Description 02/11/2020 Documentation Only [facility] Galdino Nielsen MD Orders (INR) [address] [phone] Social History Tobacco Use Types Packs/Day Years [...] 05/03/2021 organizations such as restorationist groups, unions, fraSNTMNT or athletic groups, or school groups? How [...] documented as of this encounter Progress Notes Galdino Valdez MD - 02/11/2020 1:09 PM CDT SB 5 I signed INR orders Galdino Valdez MD documented in this encounter Plan of Treatment Upcoming Encounters Date Type Specialty Care Team Description 11/15/2022 Virtual Visit Pharm D Haylie Cheung, [facility] [address] [facility] [place] [address] (Wo rk) 11/15/2022 Virtual Visit [place] [address] [place] [address] [place] [id number] (Wo rk) 03/03/2023 Virtual Visit Neurology Erlinda Barber MD 420 [facility] 295 [place] [address] (Wo rk) documented as of this encounter Visit Diagnoses Not on filedocumented in this encounter Additional Health Concerns Assessment Noted Time PHQ-9 Depression Total Score: 4 04/12/2019 7:03 AM CDT documented as of this encounter Care Teams Manual Tester Relationship Specialty Start Date End Date Galdino Valdez MD PCP - General Family Practice 11/29/19 02/12/20 [address] [facility] [place] [address] Chastity Montero MD Dermatology 09/23/14 [address] [facility] 98 [place], [place] [address] Johnnie Alcocer MD Surgeon General Surgery 03/23/[address] [place], [place] [phone] Danni Marcus, CHANDLER Personal Advocate & 01/09/1901/17 Liaison (PAL) [place], Ea Complex 04/23/19 Svetlana Osman, Pharmacist Pharmacotherapy 04/23/19 [facility] [address] [place], [place] [phone] Haylie Cheung, Pharmacist Pharmacist 09/11/19 [facility] [address] [place], [place] [phone] Galdino Valdez MD Assigned PCP 11/10/19 05/23/20 [address] [place], [place] [phone] documented as of this encounter
--- OUTSIDE RECORDS SUMMARY | 2022-06-15 12:55 | XMS_ITS | Encounter Summary ---
:1945 Author Organization [place] Address [address] [place] [address] Care Team Providers Name Role Phone Chastity Montero MD Unavailable [phone] Johnine Alcocer MD Unavailable Danni Marcus RN Unavailable Unavailable Mtm, Ea Complex Unavailable Unavailable Svetlana Osman [facility] Unavailable [phone] Haylie Cheung [facility] Unavailable [phone] Galdino Valdez MD Unavailable Galdino Valdez MD Primary Care Provider Jaiden Holcomb MD Primary Care Provider Kendall Joseph MD Unavailable Erlinda Barber MD Unavailable Jaiden Holcomb MD Unavailable Reason for Visit Reason Comments Other left IT wound Encounter Details Date Type Department Care Team Description 02/03/2020 Office Visit - [facility] Patience Toussaint NP Pressure injury of left ischium, stage 4 (H); [facility] [address] Morbid obe sity with BMI of 50.0-59.9, adult (H) [facility] [address] [facility] [address] [place] [id number] Social History Tobacco Use Types Packs/Day [...] Sign Reading Time Taken Comments Blood Pressure 144/84 02/03/2020 2:48 PM CDT Pulse 80 02/03/2020 2:48 PM CDT Temperature - - Respiratory Rate 22 02/03/2020 2:48 PM CDT Oxygen Saturation - - Inhaled Oxygen Concentration - - Weight - - Height - - Body Mass Index - - documented in this encounter Progress Notes Patience Toussaint NP - 02/03/2020 2:45 PM CDT Images from the original note were not included. Progress Notes by Patience Toussaint NP at 02/03/2020 2:45 PM Author: Patience Toussaint NP Service: -- Author Type: Nurse Practitioner Filed: 02/03/2020 3:47 PM Encounter Date: 02/03/2020 Status: Signed Coffee Maker: Patience Toussaint NP (Nurse Practitioner) Follow up Vascular Visit Date of Service:02/03/2020 Date Last Seen: 01/31/2020; 01/31/2020 Chief Complaint: left IT pressure injury Pt returns to [facility] with regards to their left IT pressure injury. She is now being managed by Dr. Huggins. They arrive today alone. They are currently using wound vac to the wounds. Home care is having issues with maintaining seal on this; were changing daily; however a new machine was ordered this weekend and was able to keep in place for 48 hours without alarms or leaks. Pt has roho cushion and low air loss mattress on her hospital bed. She is taking several supplements andprotein. They are using velcro for compression. They are feeling well today. Denies fevers, chills. No shortness of breath. Allergies: Cephalexin; Ciprofloxacin; Clindamycin; Lanolin; Lisinopril; Mupirocin; [...] by mouth daily., Disp: , Rfl: ? hmpxxgkvxbbi-ortpvuro-mnpqlp (CEROVITE SENIOR) tablet, Take 1 tablet by mouth at bedtime., Disp: ,Rfl: ? nystatin (MYCOSTATIN) cream, Apply topically., Disp: , Rfl: ? sodium hypochlorite (DAKIN'S, HALF-STRENGTH,) external solution, Irrigate with as directed daily.,Disp: , Rfl: ? triamcinolone (KENALOG) 0.1 % ointment, Apply topically., Disp: , Rfl: ? warfarin (COUMADIN) 10 MG tablet, Take 10 mg by mouth daily., Disp: , Rfl: History: Past Medical History: Diagnosis Date ? [...] Patient has appointment with Retina Specialist at [facility] on 01/11. 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 ? Morbid obesity (H) ? [...] Referral placed for Dr. Kajal Huggins at [facility] in [place] per patient request. She has contact i [...] Weakness left lower limb Physical Exam: BP 144/84 Pulse 80 Resp 22 General: Patient presents to clinic in no apparent distress. Head: normocephalic atraumatic Psychiatric: Alert and oriented x3. Respiratory: unlabored breathing; no cough Integumentary: Skin is uniformly warm, dry and pink. Wound #1 Location: left IT Size: 4L x 5W x 4.7depth. Positional; no sinus tract present, Wound base:red; viable No undermining present. Wound is full thickness. There is moderate drainage. Periwound: no denudement, erythema, induration, maceration or warmth. Circumferential volume measures: No flowsheet data found. Ulceration(s)/Wound(s): VASC Wound 05/15/19 Buttocks (Active) Pre Size Length 6 02/03/20 1500 Pre Size Width 5 02/03/20 1500 Pre Size Depth 6 02/03/20 1500 Pre Total Sq cm 30 02/03/20 1500 Post Size Length 4 02/03/20 1500 Post Size Width 5 02/03/20 1500 Post Size Depth 4.7 02/03/20 1500 Post Total Sq cm 20 02/03/20 1500 Undermined no 12/12/19 0900 Tunneling no 12/12/19 0900 Description red 01/09/20 1300 Lab Values Lab Results Component Value Date [...] of left ischium, stage 4 (H) 2. Morbid obesity with BMI of 50.0-59.9, adult (H) 02/03/2020 left IT Are any of these wounds [...] decrease edge senescence. Total excisional debridement was 20 sq cm from the epidermis/dermis area, into the subcutaneous tissue and into the muscle/fascia with a depth of 4.7 cm. Ulcers were improved afterwards and barrel cleaner. Measures were unchanged after debridement. 2. Wound treatment: wound treatment will include irrigation and dressings to promote autolytic debridement which will include:pt wants to try and continue with the wound vac; we found a small piece ofblack foam in the base; the sponge should be cut in one long strip; NOT multiple pieces; continue home care; Pt did not want to see Dr. Biswas again; Dr. Steward did not feel she was a surgical candidateStable Last MRI positive for osteomyelitis; she was seen and treated by ID with IV antibiotics; has completed therapy. 3. Edema: continue with velcro wraps. The compression wraps were applied today in clinic. Stable not addressed today 4. Nutrition: waiting call back from bariatrics; taking supplements 5. Offloading: has low air loss matress; and trudi gage Patient will follow up with me in 4-6 weeks for reevaluation; Dr. Huggins in 6-8. They were instructed to call the clinic sooner with any signs or symptoms of infection or any further questions/concerns. Answered all questions. Patience Toussaint DNP, RN, WAX PATTERN ASSEMBLER, CWOCN, CFCN, CLT [facility] [phone] This note was electronically signed by Patience Toussaint documented in this encounter Miscellaneous Notes Patient Instructions - HE - Patience Toussaint NP - 02/03/2020 2:45 PM CDT Wound Vac Dressing Change Instructions Every Monday, Monday and Monday Gently remove old dressing Cleanse the wound and surrounding skin with dilute hibiclens (30cc in 500cc NS) Pat dry Apply Cavilon no sting barrier wipe to the periwound skin Apply vac drape to the periwound skin to protect from the drainage and sponge; window pane fashion Cut the black vac foam to fit the size of the wound; cut in a long narrow strip or snake; only use one piece to decrease risk of leaving old foam in the wound cavity If bridging technique is being used pick a fleshy area on the body where there will not be pressure Apply vac drape to wherever the bridging is going to be (NEVER apply black sponge to the intact skin) Cut a long narrow strip of black foam for the bridge Cover with vac drape for air tight seal Where you are going to apply the suction pad; cut a hole the size of a quarter Apply the suction pad; be mindful of the direction of the tubing Connect tubing 125-150 mmHG continuous suction documented in this encounter Plan of Treatment Upcoming Encounters Date Type Specialty Care Team Description 11/15/2022 Virtual Visit Pharm Haylie Gonzalez, [facility] [address] [facility] [place] [address] (Wo rk) 11/15/2022 Virtual Visit IM/Peds Yane Barraza MD [address] [facility] [place] [address] (Wo rk) 03/03/2023 Virtual Visit Neurology Erlinda Barber MD 420 [facility] 295 [place], [place] [address] (Wo rk) documented as of this encounter Visit Diagnoses Diagnosis Pressure injury of left ischium, stage 4 (H) Morbid obesity with BMI of 50.0-59.9, ad ult (H) documented in this encounter Additional Health Concerns Assessment Noted Time PHQ-9 Depression Total Score: 4 04/12/2019 7:03 AM CDT documented as of this encounter Care Teams Water Trainer Relationship Specialty Start Date End Date Galdino Valdez MD PCP - General Family Practice 11/29/19 02/12/20 [address] [place], [place] [phone] Jaiden Holcomb PCP - General Internal Medicine 02/13/2010/03 MD Jayesh [address] [facility] [address] [place] [id number] Chastity Montero MD Dermatology 09/23/14 [address] [facility] 98 [place], [place] [address] Johnnie Alcocer MD Surgeon General Surgery 03/23/17 [address] [facility] [facility] 300 [place] [address] Danni Marcus, CHANDLER Personal Advocate & 01/09/1901/17 Liaison (PAL) Fernando, Ea Complex 04/23/19 Svetlana Osman, Pharmacist Pharmacotherapy 04/23/19 [facility] [address] [place] [id number] Haylie Cheung, Pharmacist Pharmacist 09/11/19 [facility] [address] [place] [address] Galdino Valdez MD Assigned PCP 11/10/19 05/23/20 [address] [place], [place] [phone] Opal, Assigned Sleep 05/08/20 03/27/21 Kendall Meehan MD Provider [address] [place] [address] Erlinda Barber MD Assigned Neuroscience 05/08/20 01/26/21 [address] [facility] 295 [place] [address] Jaiden Holcomb Assigned PCP 05/24/20 MD Jayesh [address] [place] [address] documented as of this encounter
--- OUTSIDE RECORDS SUMMARY | 2022-06-15 12:55 | XMS_ITS | Encounter Summary ---
:1945 Author Organization [place] Address [address] [place] [address] Care Team Providers Name Role Phone Chastity Montero MD Unavailable [phone] Johnnie Alcocer MD Unavailable Danni Marcus RN Unavailable Unavailable Mtm, Ea Complex Unavailable Unavailable Svetlana Osman [facility] Unavailable [phone] Haylie Cheung [facility] Unavailable [phone] Galdino Valdez MD Unavailable Galdino Valdez MD Primary Care Provider Jaiden Holcomb MD Primary Care Provider [phone] Kendall Joseph MD Unavailable Erlinda Barber MD Unavailable Jaiden Holcomb MD Unavailable [phone] Encounter Details Date Type Department Care Team Description 02/06/2020 Records - [facility] CONVERSION Scan, Non-Provider [...] 05/03/2021 organizations such as religious groups, unions, fraAmerican DG Energy or athletic groups, or school groups? How [...] Visit Pharm Haylie Gonzalez, [facility] [address] [place] [address] (Wo rk) 11/15/2022 Virtual [place] [address] [place] [address] [address] [place] [phone] (Wo rk) 03/03/2023 Virtual Visit Neurology Erlinda Barber MD 420 [facility] 295 [place], [place] [phone] (Wo rk) documented as of this encounter Visit Diagnoses Not on filedocumented in this encounter Additional Health Concerns Assessment Noted Time PHQ-9 Depression Total Score: 4 04/12/2019 7:03 AM CDT documented as of this encounter Care Teams Taproom Attendant Relationship Specialty Start Date End Date Galdino Valdez MD PCP - General Family Practice 11/29/19 02/12/20 [address] [facility] [place], [place] [phone] Jaiden Holcomb PCP - General Internal Medicine 02/13/2010/03 MD Jayesh [address] [facility] [address] [place] [id number] Chastity Montero MD Dermatology 09/23/14 [address] [facility] 98 [place] [address] Johnnie Alcocer MD Surgeon General Surgery 03/23/[address] [place] [address] Danni Marcus, CHANDLER Personal Advocate & 01/09/1901/17 Liaison (PAL) Fernando, Ea Complex 04/23/19 Svetlana Osman, Pharmacist Pharmacotherapy 04/23/19 [facility] [address] [place] [address] Haylie Cheung, Pharmacist Pharmacist 09/11/19 [facility] [address] [place] [address] Galdino Valdez MD Assigned PCP 11/10/19 05/23/20 [address] [place], [place] [phone] Opal, Assigned Sleep 05/08/20 03/27/21 Kendall Meehan MD Provider [address] [place], [place] [phone] Erlinda Barber MD Assigned Neuroscience 05/08/20 01/26/[address] [address] [facility] [address] [place] [address] Jaiden Holcomb Assigned PCP 05/24/20 MD Jayesh [address] [place] [address] documented as of this encounter
--- OUTSIDE RECORDS SUMMARY | 2022-06-15 12:55 | XMS_ITS | Encounter Summary ---
:1945 Author Organization [place] Address [address] [place] [address] Care Team Providers Name Role Phone Chastity Montero MD Unavailable [phone] Johnnie Alcocer MD Unavailable Danni Marcus RN Unavailable Unavailable Mtm, Ea Complex Unavailable Unavailable Svetlana Osman [facility] Unavailable [phone] Haylie Cheung [facility] Unavailable [phone] Galdino Valdez MD Unavailable Jaiden Holcomb MD Primary Care Provider [phone] Reason for Referral Consultation (Routine) - Closed Specialty Diagnoses / Procedures Referred By Contact Refer red To Contact Diagnoses Foot drop, left Injury of left sciatic nerve, subsequent encounter Jaiden Holcomb [facility] MD Jayesh [address] [place] [address] [place] [address] Referral ID Status Reason Start Date Expiration Date Visits Requ ested Visits Authorized [id number] Closed 02/19/2020 02/18/2021 1 1 Reason for Visit Reason Onset Date Comments Consult 02/14/2020 OT and PT thru home care Encounter Details Date Type Department Care Team Description 02/14/2020 Telephone [facility] Jaiden Holcomb Conssophia lt (OT and PT thru Clinic Yarelis Mcconnell MD home care) [address] [address] [place] [address] [phone] Social History Tobacco Use Types Packs/Day Years [...] Notes Telephone Encounter - Gisele Reed - 02/24/2020 11:04 AM CDT Faxed letter. Thank you Luis E Carreon Line Up Examiner - Complex Care Team Telephone Encounter - Danni Marcus RN - 02/19/2020 4:[address] Barber do you have a recommendation for a neuromuscular specialist? Thank you, Ashli Marcus RN Telephone Encounter - Danni Marcus RN - 02/19/2020 4:28 PM CDT Letter printed with orders for OT and Physical therapy. Please fax to home care number below after it's signed.. I placed the order for the EMG. My chart message sent to patient with phone number to call. Message sent to Dr. Barber for recommendation for neuromuscular specialist? Ashli Marcus RN Telephone Encounter - Danni Marcus RN - 02/19/2020 12:[address] freelance [address] reporter, Laquita, was at patient's home and she asked me to fax the orders to their office for OT and Physical therapy at [phone]. Her phone #-[phone]. Ashli Marcus RN Telephone Encounter - Danni Marcus RN - 02/19/2020 12:12 PM CDT I spoke with patient and she is in agreement with proceeding with these orders. Ashli Marcus RN Telephone Encounter - Jaiden Holcomb MD - 02/19/2020 8:00 AM CDT Yes, PT, OT and EMG evaluation would be helpful. I wonder after an EMG. Would there be a neuromuscular specialist that Dr. Barber recommend? Jaiden Holcomb MD Internal Medicine [facility] [place] Telephone Encounter - Danni Marcus RN - 02/19/2020 7:[address] Barber, Neurologist-OT and PT is a good idea. She also may benefit from seeing a neuromuscular specialist. EMG may be very helpful in identifying the problems. Thankyou! Zhiyi Forwarded to provider for review. Can order Physical therapy and OT thru home care. Would you like an EMG ordered? Ashli Marcus RN Telephone Encounter - Danni Marcus RN - 02/14/2020 8:[address] Holcomb had virtual visit with patient yesterday and she mentioned concerns with left foot dropdue to sciatic nerve injury from surgery 3 years ago for the ischial wound. Reports sporadic feeling in the foot. She is unable to move her toes or foot up and down. Is able to ambulate with use of walker. Dr. Holcomb is considering OT and Physical therapy thru home care, and would like Dr. Barber's input if he feels this would be beneficial to try? We don't know if patient has discussed this nerve issue with Dr. Barber yet. Thank you, Ashli Marcus RN documented in this encounter Plan of Treatment Upcoming Encounters Date Type Specialty Care Team Description 11/15/2022 Virtual Visit Pharm Haylie Gonzalez, [facility] [address] [place] [address] [address] [place] [id number] (Wo rk) 11/15/2022 Virtual Visit [place] [address] [place] [address] [place] [id number] (Wo rk) 03/03/2023 Virtual Visit Neurology Erlinda Barber MD 420 [facility] 295 [place], [place] [phone] (Lena max) Scheduled Referrals Name Type Priority Associated Diagnoses Order S chedule NEUROLOGY ADULT Referral Routine Foot drop, left Ordered: 02/19/2020 REFERRAL Injury of left sciatic nerve, subsequent encounter documented as of this encounter Visit Diagnoses Diagnosis Foot drop, left - Primary Other acquired deformity of ankle and fo ot Injury of left sciatic nerve, subsequent encounter documented in this encounter Additional Health Concerns Assessment Noted Time PHQ-9 Depression Total Score: 4 04/12/2019 7:03 AM CDT documented as of this encounter Care Teams Cosmetics Demonstrator Relationship Specialty Start Date End Date Jaiden Holcomb PCP - General Internal Medicine 02/13/2010/03 MD Jayesh [address] [facility] [address] [place], [place] [phone] Chastity Montero MD Dermatology 09/23/14 MD Martha [address] [facility] 98 [place], [place] [address] Johnnie Alcocer MD Surgeon General Surgery 03/23/[address] [place], [place] [address] Danni Marcus, CHANDLER Personal Advocate & 01/09/1901/17 Liaison (PAL) Fernando Ea Complex 04/23/19 Svetlana Osman Pharmacist Pharmacotherapy 04/23/19 Era, [facility] [address] [place], [place] [phone] Haylie Cheung, Pharmacist Pharmacist 09/11/19 [facility] [address] [place], [place] [phone] Galdino Valdez MD Assigned PCP 11/10/19 05/23/20 [address] [facility] [place] [phone] documented as of this encounter
--- OUTSIDE RECORDS SUMMARY | 2022-06-15 12:55 | XMS_ITS | Encounter Summary ---
:1945 Author Organization [place] Address [address] [place] [address] Care Team Providers Name Role Phone Chastity Montero MD Unavailable [phone] Johnnie Alcocer MD Unavailable Danni Marcus RN Unavailable Unavailable Mtm, Ea Complex Unavailable Unavailable Svetlana Osman [facility] Unavailable [phone] Haylie Cheung [facility] Unavailable [phone] Galdino Valdez MD Unavailable Galdino Valdez MD Primary Care Provider Reason for Referral Specialty Diagnoses / Procedures Referred By Contact Refer [place] [address] [place], [place] [address] Referral ID Status Reason Start Date Expiration Date Visits Requ ested Visits Authorized Reason for Visit Reason Onset Date Comments Anticoagulation 02/10/2020 [facility] renewal review Encounter Details Date Type Department Care Team Description 02/10/[address] [facility] Galdino Valdez Anti coagulation ([facility] [place] MD Anton renewal review) [address] [phone] [place] [address] Social History Tobacco Use Types Packs/Day Years [...] encounter Progress Notes Latia Henley RN - 02/10/2020 3:13 PM CDT ANTICOAGULATION MANAGEMENT Charlette Brush due for annual renewal of referral to anticoagulation monitoring. Order pended for your review and signature. ANTICOAGULATION SUMMARY Warfarin indication(s) Hx Recurrent PE/DVT Heart valve present? NO Current goal range INR: 2.0-3.0 Goal appropriate for indication? Yes, INR 2-3 appropriate for hx of DVT, PE, hypercoagulable state, Afib, LVAD, or bileaflet AVR without risk factors Current duration of therapy Indefinite/custodial therapy Time in Therapeutic Range (TTR) (Goal > 60%) 78 % Office visit with referring provider's group within last year yes on 09/11/19 Latia Henley RN documented in this encounter Miscellaneous Notes Addendum Note - Latia Henley RN - 02/10/2020 3:13 PM CDT Addended by: LATIA HENLEY on: 02/11/2020 02:47 PM Modules accepted: Orders documented in this encounter Plan of Treatment Upcoming Encounters Date Type Specialty Care Team Description 11/15/2022 Virtual Visit Pharm Haylie Gonzalez, [facility] [address] 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 documented as of this encounter Visit Diagnoses Diagnosis Paroxysmal atrial fibrillation (H) - Jessica antonia Atrial fibrillation 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 embolism documented in this encounter Additional Health Concerns Assessment Noted Time PHQ-9 Depression Total Score: 4 04/12/2019 7:03 AM CDT documented as of this encounter Care Teams Internal Revenue Service Agent Relationship Specialty Start Date End Date Galdino Valdez MD PCP - General Family Practice 11/29/19 02/12/20 [address] [place], [place] [phone] Chastity Montero MD Dermatology 09/23/14 [address] [facility] [address] [place] [address] Johnnie Alcocer MD Surgeon General Surgery 03/23/[address] [place], [place] [phone] Danni Marcus, RN Personal Advocate & 01/09/1901/17 Liaison (PAL) Fernando Ea Complex 04/23/19 Svetlana Osman, Pharmacist Pharmacotherapy 04/23/19 [facility] [address] [place], [place] [phone] Haylie Cheung, Pharmacist Pharmacist 09/11/19 [facility] [address] [place] [address] Galdino Valdez MD Assigned PCP 11/10/19 05/23/20 [address] [place], [place] [phone] documented as of this encounter
--- OUTSIDE RECORDS SUMMARY | 2022-06-15 12:55 | XMS_ITS | Encounter Summary ---
:1945 Author Organization [facility] Address [address] [place] [address]. [place] [address] Care Team Providers Name Role Phone Chastity Montero MD Unavailable [phone] Johnnie Alcocer MD Unavailable Danni Marcus RN Unavailable Unavailable Mtm, Kyle Complex Unavailable Unavailable Svetlana Osman [facility] Unavailable [phone] Haylie Cheung [facility] Unavailable [phone] Galdino Valdez MD Unavailable Galdino Valdez MD Primary Care Provider Encounter Details Date Type Department Care Team Description 01/24/2020 Anticoagulation Therapy [facility] Galdino Valdez 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 embolism; Visit Clinic Radha Walton MD correction current use of anticoagulant [address], [address] [place] [address] [phone] Social History Tobacco Use Types Packs/Day Years [...] 05/03/2021 organizations such as confucianism groups, unions, fraEverest or athletic groups, or school groups? How [...] encounter Progress Notes Fadumo Davies RN - 01/24/2020 12:26 PM CDT ANTICOAGULATION MANAGEMENT Patient Name: Charlette Brush Date: 01/24/2020 ASSESSMENT /SUBJECTIVE: Today's INR result of 3.6 is supratherapeutic. Goal INR of 2.0-3.0 ??? Warfarin dose taken: Warfarin taken as previously instructed ??? Diet: No new diet changes affecting INR ??? Medication changes/ interactions: No new medications/supplements affecting INR ??? Previous INR: Therapeutic ??? S/S of bleeding or thromboembolism: No ??? New injury or illness: No ??? Upcoming surgery, procedure or cardioversion: No ??? Additional findings: Wound on left ischial that now has a wound vac with weeping, inflammation in the area PLAN: Spoke with [facility], regarding INR result and instructed: Warfarin Dosing Instructions: Change your warfarin dose to 5 mg on fridays and 10 mg all other days Instructed patient to follow up no later than: 1 week Orders given to Homecare nurse/facility to recheck Education provided: Monitoring for bleeding signs and symptoms, educated on s/s of bleeding in regards to Wound Vac reporting if excessive bleeding, pools of blood, s/s of hematoma, signs clotting [facility], verbalizes understanding and agrees to warfarin dosing plan. Instructed to call the Anticoagulation Clinic for any changes, questions or concerns. (#[phone]) Fadumo A. Isum, RN OBJECTIVE: Recent labs: (last 7 days) 01/24/20 INR 3.6* No question data found. Anticoagulation Summary As of 01/24/2020 INR goal: 2.0-3.0 TTR: 80.6 % (1 y) INR used for dosin.6! 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 Anticoagulation Care Providers Provider Role Specialty Phone number Lucero Stevenson MD Responsible Internal Medicine [phone] documented in this encounter Plan of Treatment Upcoming Encounters Date Type Specialty Care Team Description 11/15/2022 Virtual Visit Pharm Haylie Gonzalez, [facility] [address] [facility] [place] [address] (Lena max) 11/15/2022 Virtual Visit [place] [address] [place] [address] [place] [address] (Lena max) 03/03/2023 Virtual Visit Neurology Erlinda Barber MD [address] [facility] [address] [place] [address] (Lena max) documented as of this encounter Procedures Procedure Name Priority Date/Time Associated Diagnosis Comme nts INR Routine 01/24/2020 Results for thi s procedure are in the resu lts section. documented in this encounter Results (ABNORMAL) INR (01/24/2020) P athologist Signature INR 3.6 (A) 0.90 - 1.10 EXTERNAL LAB Specimen (Source) Anatomical Location Collection Method / Collectio n Time Received Time / Laterality Volume Blood specimen 01/24/2020 (specimen) Resulting Agency Comment Home Care Patient Reported LAB - BLOOD ORDERABLES Performing Organization Address City/State/ZIP Code Phon e Number EXTERNAL LAB EXTERNAL LAB External Lab documented in this encounter Visit Diagnoses Diagnosis 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 embolism termite control representative current use of anticoagulant t herapy documented in this encounter Additional Health Concerns Assessment Noted Time PHQ-9 Depression Total Score: 4 04/12/2019 7:03 AM CDT documented as of this encounter Care Teams Custodian Relationship Specialty Start Date End Date Galdino Valdez MD PCP - General Family Practice 11/29/19 02/12/20 [address] [place], [place] [id number] Chastity Montero MD Dermatology 09/23/14 [address] [facility] [address] [place], [place] [phone] Johnnie Alcocer MD Surgeon General Surgery 03/23/[address] [place], [place] [phone] Danni Marcus, CHANDLER Personal Advocate & 01/09/1901/17 Liaison (PAL) Fernando, Ea Complex 04/23/19 Svetlana Osman, Pharmacist Pharmacotherapy 04/23/19 [facility] [address] [place] [address] Haylie Cheung, Pharmacist Pharmacist 09/11/19 [facility] [address] [place] [address] Galdino Valdez MD Assigned PCP 11/10/19 05/23/20 [address] [place] [address] documented as of this encounter
--- OUTSIDE RECORDS SUMMARY | 2022-06-15 12:55 | XMS_ITS | Encounter Summary ---
:1945 Author Organization [facility] Address [address] [place] [address] Care Team Providers Name Role Phone Chastity Montero MD Unavailable [phone] Johnnie Alcocer MD Unavailable Danni Marcus RN Unavailable Unavailable Mtm, Ea Complex Unavailable Unavailable Svetlana Osman [facility] Unavailable [phone] Haylie Cheung [facility] Unavailable [phone] Galdino Valdez MD Unavailable Jaiden Holcomb MD Primary Care Provider [phone] Reason for Visit Reason Onset Date Comments Medication Therapy Management 02/13/2020 Encounter Details Date Type Department Care Team Description 02/13/2020 Virtual Visit [facility] Svetlana Osman Lymph edema of both lower extremities (Primary Dx); Clinic Yarelis Girard [facility] Essential hypertension, benign; [address] Iron deficiency anemia, unspecified iron deficiency anemia type; [employer] [place] [address] Dermatitis; [address] CEFERINO on CPAP; [place] [id number] (Work) Intermittent pain; [phone] 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; Seizure (H); Allergic reacti on, sequela; Open wound; Takes dietary s upplements; Morbid obesity -- BMI 55.6 Social History Tobacco Use Types Packs/Day Years [...] as of this encounter Progress Notes Svetlana Osman, [facility] - 02/13/2020 8:30 AM CDT Images from the original note were not included. MTM ENCOUNTER SUBJECTIVE/OBJECTIVE: Charlette Brush is a 75 year old female contacted via secure video for a follow- up visit. She was referred to me from Dr. Holcomb. Seen before SB5 visit and during visit today. Today's visit is a follow-up MT visit from 09/11/19 with Haylie Cheung PharmD Patient consented to a telehealth visit: yes Telemedicine Visit Details Type of service: Video visit Start Time: 8:36am End Time: 9:54 AM Originating Location (pt. Location): Home Distant Location (provider location): [facility] Mode of Communication: Video Conference via [place] Chief Complaint: She was given furosemide and trouble taking since hard to go to the bathroom since she urinates frequently. Personal Healthcare Goals: wound is open for 2.5 years, not sure when the nerve damage will improving, walking and trying to stay strong with muscle in left leg, wondering about neurologist referral; get back to her life before Allergies/ADRs: Reviewed in EHR Tobacco: reports that she has never smoked. She has never used smokeless tobacco. Alcohol: not currently using Caffeine: no caffeine Activity: Walking around her home and 20-30 minutes per day, uses 4 wheel walker. PMH: Reviewed in EHR. 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 [facility] in [place]. Medication Adherence/Access: Patient takes medications directly from bottles. Patient takes medications 2 time(s) per day. Per patient, misses medication 0 times per week. Medication barriers: none. The patient fills medications at [facility]: NO, fills medications at [facility]. ?? CEFERINO: She denies any issues with CPAP. Hopes to get replacement CPAP after COVID is better per 11/04/2019 telephone encounter. She is reporting easy fatigue. Specialist: Dr. Joseph, Sleep Medicine. Last visit on 09/23/2019, the following was recommended replacement orders given for CPAP. ?? Intermittent pain: Current medications include: acetaminophen 650mg Q4 prn. Rarely using. No other concerns. ?? Hypertension/Lymphedema: Current medications include losartan 50mg every day AM, atenolol 25mg twicedaily. She takes furosemide 20-40 mg a few times a week. However, she does not think the furosemide makes a big difference. She wonders if she needs this. She has wraps up to knee but above knee she has issues. Saw lymphedema specialist in the past. Has lymphedema pump/tube that she wear daily with the help of the aids, will run 1 hour (she notesthe fluid output is variable and not dependent on furosemide or water intake). Runs from toes to hip. Patient reports the following medication side effects: none today History of being on triamterene-hydrochlorothiazide 37.5-25mg which she tolerated well. B/P: 128/64 taken yesterday by homecare BP Readings from Last 3 Encounters: 09/23/19 (!) 154/92 09/11/19 138/86 07/22/19 (!) 170/107 ?? Recurrent PE: Current medication is wafarin in the evening as directed by INR clinic from last visiton 01/31/20 dose is 5mg on Monday, 10mg on other days. Next check Monday. Due to recheck INR 02/14/20. Per Dr. Felipe recommendation lifelong therapy. Bleeding from wound vac. Lab Results Component Value Date INR 3.0 01/31/2020 INR 3.6 01/24/2020 INR 2.2 01/16/2020 INR 3.9 01/13/2020 INR 2.9 01/06/2020 ?? Anemia: Hx of iron deficiency induced anemia. Current medication is ferrous sulfate 325mg every other day with breakfast (along with vitamin C). She is taking this with her other supplements. No constipation with diet. She has more blood excreted, from wound canister and would like to increase this dose. Hemoglobin Date Value Ref Range Status 07/19/2019 13.5 11.7 - 15.7 g/dL Final ] Ferritin Date Value Ref Range Status 04/23/2019 92 8 - 252 ng/mL Final ?? Iron Date Value Ref Range Status 04/23/2019 59 35 - 180 ug/dL Final ?? Iron Binding Cap Date Value Ref Range Status 04/23/2019 318 240 - 430 ug/dL Final ? Seizure: Current medication is levetiracetam 500mg twice a day. S/E:noticing easier to sleep, nodding off Specialist: Dr. Barber, Neurology. Last visit on 01/24/20, the following was recommended no change. EEGon showed occasional left temporal epileptiform activities during sleep and occasional left temporal slowing during sleep and wakefulness. ??No seizures. ?? Allergies: Current medications include cetirizine 10mg twice daily. Primary symptoms are nasal congestion. She also states she has had a lot of skin testing previously and is allergic to many things (Dr. Edward Schroeder at the ). She does not like nasal sprays and do not want to start those. Pt feels that current therapy is somewhat effective. ?? Eczema/Wound: Current medication is hydrocortisone 2.5% ointment PRN, nystatin cream or powder for wound healing/infection which she feels is highly effective. Has left IT pressure injury. She has worked with dermatology and ID. No longer on IV antibiotic, treated for osteomyelitis. Has a nurse to check wounds daily. Has velcro wraps for edema. Has compression pump for her legs. She has a wound vac in the last few weeks. Specialist: Patience Toussaint, Vascular Surgery. Last visit on 02/03/20, the following was recommended debridement, wound treatment.. ?? Supplements: Currently taking vitamin D 5000 units every day, MVI 1 tablet every day, Preservision/Luteine 1 cap every day for macular degeneration, vitamin C 500 mg daily for wound healing daily. Calcium intake: At least 1 yogurt daily, 2 glasses of milk and bag of salad every day. Normal DEXA scan 2012. ?? Obesity: Current medication include: none. She is interested in weight loss and is wondering what she can do for this. Her appointment for the weight clinic was cancelled due to COVID, this is to be reschedule. Patient's personalized goal: Patient would like to work on diet and possibly medication for weight loss. Current weight today: 352 lbs 12.8 oz Weight trend: Wt Readings from Last 4 Encounters: 09/23/19 (!) 352 lb (159.7 kg) 09/11/19 (!) 352 lb 12.8 oz (160 kg) 07/22/19 (!) 354 lb 6.4 oz (160.8 kg) 04/24/19 (!) 334 lb 7 oz (151.7 kg) Today's Vitals: There were no vitals taken for this visit. ASSESSMENT: Medication Adherence: good, no issues identified CEFERINO: Needs improvement. Would benefit from updating CPAP supplies. ?? Pain: stable. ?? Hypertension/Lymphedema: Needs improvement. Patient is not meeting BP goal of < 140/90mmHg. Pt tocontinue lymphedema pumps. Discontinue furosemide, start hydrochlorothiazide once daily. Recheck BP with homecare and BMP labs in 1 week. ?? Recurrent PE: stable. INR at goal 2-3. Pt has INR visit tomorrow. ?? Anemia: Needs improvement. PCP suggest recheck CBC. Seizure: stable. ?? Allergic rhinitis: unchanged. ?? Eczema/Wound: Unimproved. Pt continues to work with wound clinic, refill sent for nystatin cream. Ptwould benefit from PT. ?? Supplements: stable. In the future check vitamin D level with increase in dose. ?? Weight Loss: Needs improvement. Due to meet with weight loss clinic, pt on list to be contacted. PLAN: 1. Lymphedema/High Blood pressure: -Stop the furosemide. -Start the hydrochlorothiazide 12.5mg once daily -BP order given for home BP monitor. -Check labs in 1 week, CMP order. 2. Anemia: Labs for hemoglobin, iron and folate to determine if ferrous sulfate needs to be increased. 3. Message neurology to see what next steps are, such as physical therapy maybe helpful. 4. WH[facility] [place], to reach out to homecare nurse to coordinate labs and BP checks. 5. Patient to contact Bariatric clinic Future consideration: recheck vitamin D in 3 months. Will follow up in 3 months. I spent 78 minutes with this patient today. All changes were made via verbal approval with Dr. Holcomb. A copy of the visit note was provided to the patient's primary care provider. The patient was mailed a summary of these recommendations. See Provider note/AVS from today. Svetlana Osman PharmD [facility] Medication Therapy Management Practitioner #[phone] documented in this encounter Plan of Treatment Upcoming Encounters Date Type Specialty Care Team Description 11/15[facility]2022 [facility] [address] [place] [address] ( winter) 11/15/2022 Virtual Visit [place] [address] [place] [address] [place] [address] (Lena max) 03/03/2023 Virtual Visit Neurology Erlinda Barber MD [address] [facility] [address] [place], [place] [phone] (Lena max) documented as of this encounter Visit Diagnoses Diagnosis Lymphedema of both lower extremities - P rimary Essential hypertension, benign Iron deficiency anemia, unspecified iron deficiency anemia type Dermatitis Contact dermatitis and other eczema, due to unspecified cause CEFERINO on CPAP Obstructive sleep apnea (adult) (pediatr ic) Intermittent pain Generalized pain 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 [place] [phone] Chastity Montero MD Dermatology 09/23/14 MD Martha [address] [facility] [address] [place], [place] [address] Johnnie Alcocer MD Surgeon General Surgery 03/23/17 [address] [facility] [address] [place], [place] [phone] Danni Marcus, CHANDLER Personal Advocate & 01/09/1901/17 Liaison (PAL) Fernando, Ea Complex 04/23/19 Svetlana Osman Pharmacist Pharmacotherapy 04/23/19 Era, [facility] [address] [place] [phone] Haylie Cheung, Pharmacist Pharmacist 09/11/19 [facility] [address] [place] [phone] Galdino Valdez MD Assigned PCP 11/10/19 05/23/20 [address] [place], [place] [phone] documented as of this encounter
--- OUTSIDE RECORDS SUMMARY | 2022-06-15 12:55 | XMS_ITS | Encounter Summary ---
:1945 Author Organization [place] Address [address] [place] [address] Care Team Providers Name Role Phone Chastiyt Montero MD Unavailable [phone] Johnnie Alcocer MD Unavailable Danni Marcus RN Unavailable Unavailable Mtm, Ea Complex Unavailable Unavailable Svetlana Osman [facility] Unavailable [phone] Haylie Cheung [facility] Unavailable [phone] Galdino Valdez MD Unavailable Jaiden Holcomb MD Primary Care Provider [phone] Reason for Visit Reason Onset Date Comments Home Care/Hospice 02/14/[address] [facility] Encounter Details Date Type Department Care Team Description 02/14/2020 Telephone [facility] Jaiden Holcomb [facility] Yarelis Mcconnell MD (Callback from [address] [place] [address]) [place], [place] [address] [address] [address] [place] [address] [phone] Social History Tobacco Use Types Packs/Day Years [...] 05/03/2021 organizations such as jew groups, unions, fraElectric Imp or athletic groups, or school groups? How [...] Telephone Encounter - Jolanta Reddy RN - 02/20/2020 1:09 PM CDT Mc to patient asking about hydrochlorothiazide/BP readings/ new cuff. Jolanta Reddy RN Message handled by Nurse Triage. Telephone Encounter - Danni Marcus RN - 02/19/2020 4:42 PM CDT My chart message sent to patient asking if she has begun the hydrochlorothiazide yet and has she picked up the blood pressure cuff. Ashli Marcus RN Telephone Encounter - Danni Marcus RN - 02/18/2020 9:07 AM CDT I spoke with home service advisor, Laquita, and she needs orders for wound care nurse for daily visits with wound care because the wound vac is off. Next week will visit four times ,and then 3 prn visits. Verbal approval given for these orders per protocol. They will send an order for Dr. Holcomb to sign. magnetic prospecting supervisor checked her Blood pressure and it has been averaging 130/68. She is unsure if Charlette hasstarted the hydrochlorothiazide yet, or if she has gotten her own blood pressure cuff. She has an appointment with her today and will check with her. Ashli Marcus RN Telephone Encounter - Danni Marcus RN - 02/18/2020 8:52 AM CDT I spoke with [facility] sales representative and she advised that patient come to their office for assessmentand possible adjustments to brace. I notified patient that they would prefer she be seen in clinic. I gave her the phone number to callfor [facility] to set up an appointment, and she will call them. No further questions. Will call back if any other questions or concerns. magnetic prospecting supervisor had also [facility] Provider there has asked patient if she would be willing to see a surgeon for assessment. Patient is waiting [facility] with more information. She will update me by My Chart when she is contacted by them. Ashli Marcus RN Telephone Encounter - Danni Marcus RN - 02/14/2020 9:14 AM CDT Patient feels that the ankle brace is not fitting well. Has a red spot the size of a quarter with black center between the ball of the foot and the great toe. Dr. Huggins at [facility] did look at this area-unsure what her comment was regarding this. [facility] phone number is [phone]. Advised patient I am concerned about a pressure sore from the ankle brace. The home service advisor is goingto see her today. I have asked her to take a picture and then send this to us on My Chart. I have also asked patient to have the RN take measurements of the area on her foot also, and she can include this information in her message. Plan will be to contact Jov[facility] for refitting of brace if needed, or contact [facility] for further direction. Ashli Marcus RN Telephone Encounter - Danni Marcus RN - 02/14/2020 9:02 AM CDT Patient requests that RX for blood pressure cuff be sent to the [facility] pharmacy. RX faxed to the [facility] pharmacy per patient request. Ashli Marcus RN Telephone Encounter - Danni Marcus RN - 02/14/2020 8:23 AM CDT 1. I spoke with CHANDLER Coelho to notify her of the following orders- Lab draw next week... I faxed ordersfor labs to her at [phone]. If she is unable to draw the labs, patient will come to [facility] lab for lab draw. Advised that patient was started on hydrochlorothiazide and Lasix will be discontinued. Check blood pressure next week and then again in two weeks. RX for blood pressure cuff sent to pharmacy. I asked RN to correlate blood pressure reading she gets with patient's cuff. 2. Message sent to Dr. Barber's office to see if he agrees with beginning OT and Physical therapy thru home care for the foot drop and lower extremity weakness. Ashli Marcus RN Telephone Encounter - Gisele Reed - 02/14/2020 8:00 AM CDT Ros Cerda nurse from [facility] left vm on complex care line on 02/12 at 4:35pm Seeing patient tomorrow (Monday) for INR Callback number [phone] Thank you Luis E Carreon Patient Support Representative - Complex Care Team documented in this encounter Plan of Treatment Upcoming Encounters Date Type Specialty Care Team Description 11/15/2022 Virtual Visit Pharm D Haylie Cheung, [facility] [address] [place], [place] [id number] (Wo rk) 11/15/2022 Virtual Visit [place] [address] [place] [address] [address] [place] [id number] (Wo rk) 03/03/2023 Virtual Visit Neurology Erlinda Barber MD [address] [place] [address] [address] [place], [place] [address]385 (Wo rk) documented as of this encounter Visit Diagnoses Not on filedocumented in this encounter Additional Health Concerns Assessment Noted Time PHQ-9 Depression Total Score: 4 04/12/2019 7:03 AM CDT documented as of this encounter Care Teams Screen Cleaner Relationship Specialty Start Date End Date Jaiden Holcomb PCP - General Internal Medicine 02/13/2010/03 MD Jayesh [address] [place] [address] [place] [address] Chastity Montero MD Dermatology 09/23/14 MD Martha [address] [place] [address] [address] [place], [place] [address] Johnnie Alcocer MD Surgeon General Surgery 03/23/17 [address] [facility] [address] [place], [place] [address] Danni Marcus, CHANDLER Personal Advocate & 01/09/1901/17 Liaison (PAL) Fernando, Ea Complex 04/23/19 Svetlana Osman Pharmacist Pharmacotherapy 04/23/19 Era [facility] [address] [place], [place] [id number] Haylie Cheung, Pharmacist Pharmacist 09/11/19 [facility] [address] [place], [place] [id number] Galdino Valdez MD Assigned PCP 11/10/19 05/23/20 [address] [place] [address] documented as of this encounter
--- OUTSIDE RECORDS SUMMARY | 2022-06-15 12:55 | XMS_ITS | Encounter Summary ---
:1945 Author Organization [place] Address [address] [place] [address] Care Team Providers Name Role Phone Chastity Montero MD Unavailable [phone] Johnnie Alcocer MD Unavailable Danni Marcus RN Unavailable Unavailable Mtm, Ea Complex Unavailable Unavailable Sevtlana Osman [facility] Unavailable [phone] Haylie Cheung [facility] Unavailable [phone] Galdino Valdez MD Unavailable Jaiden Holcomb MD Primary Care Provider [phone] Reason for Visit Reason Onset Date Comments Appointment 02/13/2020 Encounter Details Date Type Department Care Team Description 02/13/[address] [facility] Wilbur Holcomb Appointment Yarelis Mcconnell MD [address] [address] [address] [place] [address] [phone] Social History Tobacco Use Types Packs/Day Years [...] 05/03/2021 organizations such as taoist groups, unions, fraBuzzElement or athletic groups, or school groups? How [...] Notes Telephone Encounter - Gisele Reed - 03/19/2020 12:36 PM CDT Patient is scheduled for 04/30 with MTM an in person office visit, she would like flu shot Thank you Luis E Carreon Lead Vulcanizing Operator - Complex Care Team Telephone Encounter - Gisele Reed - 03/17/2020 11:55 AM CDT Sent Mychart to patient Thank you Luis E Carreon Lead Vulcanizing Operator - Complex Care Team Telephone Encounter - Danni Marcus, CHANDLER - 02/13/2020 11:45 AM CDT Please schedule appointment in 3 months -end of April, for follow-up. Danica. Ashli Marcus RN documented in this encounter Plan of Treatment Upcoming Encounters Date Type Specialty Care Team Description 11/15/2022 Virtual Visit Haylie Wakefield, [facility] [address] [place], [place] [id number] (Wo rk) 11/15/2022 Virtual Visit [place] [address] [place] [address] [place] [id number] (Wo rk) 03/03/2023 Virtual Visit Neurology Erlinda Barber MD [address] [facility] 295 [place], [place] [id number] (Wo rk) documented as of this encounter Visit Diagnoses Not on filedocumented in this encounter Additional Health Concerns Assessment Noted Time PHQ-9 Depression Total Score: 4 04/12/2019 7:03 AM CDT documented as of this encounter Care Teams In Home Nanny Relationship Specialty Start Date End Date Jaiden Holcomb PCP - General Internal Medicine 02/13/2010/03 MD Jayesh [address] [place] [address] [place] [id number] Chastity Montero MD Dermatology 09/23/14 MD Martha [address] [facility] 98 [place], [place] [address] Johnnie Alcocer MD Surgeon General Surgery 03/23/17 [address] [facility] [facility] 300 [place], [place] [address] Danni Marcus, CHANDLER Personal Advocate & 01/09/1901/17 Liaison (PAL) Fernando, Ea Complex 04/23/19 Svetlana Osman Pharmacist Pharmacotherapy 04/23/19 Era [facility] [address] [place] [address] Haylie Cheung, Pharmacist Pharmacist 09/11/19 [facility] [address] [place] [address] Galdino Valdez MD Assigned PCP 11/10/19 05/23/20 [address] [place] [address] documented as of this encounter
--- OUTSIDE RECORDS SUMMARY | 2022-06-15 12:55 | XMS_ITS | Encounter Summary ---
:1945 Author Organization [place] Address [address] [place] [address] Care Team Providers Name Role Phone Chastity Montero MD Unavailable [phone] Johnnie Alcocer MD Unavailable Danni Marcus RN Unavailable Unavailable Mtm, Ea Complex Unavailable Unavailable Svetlana Osman [facility] Unavailable [phone] Haylie Cheung [facility] Unavailable [phone] Galdino Valdez MD Unavailable Galdino Valdez MD Primary Care Provider Jaiden Holcomb MD Primary Care Provider Kendall Joseph MD Unavailable Erlinda Barber MD Unavailable Jaiden Holcomb MD Unavailable Encounter Details Date Type Department Care Team Description 02/07/2020 [facility] Patience Toussaint NP [facility] 2945 [facility] [address] [place] [address] [address] [place] [address] [place], [place] [phone] (Wo rk) [address] [phone] Social History Tobacco Use Types Packs/Day Years [...] Cheung, [facility] [address] [facility] [place] [address] (Wo rk) 11/15/2022 Virtual [place] [address] [place] [address] [place] [id number] (Wo rk) 03/03/2023 Virtual Visit Neurology Erlinda Barber MD 420 [facility] 295 [place], [place] [address] (Wo rk) documented as of this encounter Visit Diagnoses Not on filedocumented in this encounter Additional Health Concerns Assessment Noted Time PHQ-9 Depression Total Score: 4 04/12/2019 7:03 AM CDT documented as of this encounter Care Teams Roll Icer Relationship Specialty Start Date End Date Galdino Valdez MD PCP - General Family Practice 11/29/19 02/12/20 [address] [place], [place] [id number] Jaiden Holcomb PCP - General Internal Medicine 02/13/2010/03 MD Jayesh [address] [facility] [address] [place], [place] [phone] Chastity Montero MD Dermatology 09/23/14 MD 420 [facility] 98 [place], [place] [address] Johnnie Alcocer MD Surgeon General Surgery 03/23/17 [address] [facility] 300 [place], [place] [phone] Danni Marcus, CHANDLER Personal Advocate & 01/09/1901/17 Liaison (PAL) Mtkinsey, Ea Complex 04/23/19 Svetlana Omsan, Pharmacist Pharmacotherapy 04/23/19 [facility] [address] [place], [place] [phone] Haylie Cheung, Pharmacist Pharmacist 09/11/19 [facility] [address] [place] [address] Galdino Valdez MD Assigned PCP 11/10/19 05/23/20 [address] [place], [place] [phone] Opal, Assigned Sleep 05/08/20 03/27/21 Kendall Meehan MD Provider [address] [place], [place] [address] Erlinda Barber MD Assigned Neuroscience 05/08/20 01/26/21 [address] [facility] 295 Provider [place], [place] [address] Jaiden Holcomb Assigned PCP 05/24/20 MD Jayesh 909 [place], [place] [address] documented as of this encounter
--- OUTSIDE RECORDS SUMMARY | 2022-06-15 12:55 | XMS_ITS | Encounter Summary ---
:1945 Author Organization [place] Address [address] [place] [address] Care Team Providers Name Role Phone Chastity Montero MD Unavailable [phone] Johnnie Alcocer MD Unavailable Danni Marcus RN Unavailable Unavailable Mtm, Ea Complex Unavailable Unavailable Svetlana Osman [facility] Unavailable [phone] Haylie Cheung [facility] Unavailable [phone] Galdino Valdez MD Unavailable Galdino Valdez MD Primary Care Provider Jaiden Holcomb MD Primary Care Provider [phone] Kendall Joseph MD Unavailable Erlinda Barber MD Unavailable Jaiden Holcomb MD Unavailable [phone] Ruth John MD Unavailable Kajal Huggins MD Unavailable Patience Toussaint NP Unavailable Brook Sánchez MD Unavailable Yane Barraza MD Primary Care Provider Osmar Kidd MD Unavailable Erlinda Barber MD Unavailable Yane Barraza MD Primary Care Provider Lenore Alcala MD Unavailable Cheung Haylie Giuseppe Bob [facility] Unavailable [phone] Gaye Patrick RN Unavailable Unavailable Kenya Abernathy MIGEL OIL OPERATOR Unavailable [phone] Hayley German OD Unavailable [phone] Segundo Cheungfany Giuseppe Bob [facility] Unavailable [phone] Encounter Details Date Type Department Care Team Description 01/14/2020 Records - [facility] CONVERSION Scan, Non-Provider [...] Description 11/15/2022 Virtual Visit Haylie [place], [facility] [address] [place] [address] (Wo rk) 11/15/2022 Virtual Visit IM/Peds Yane Barraza MD [address] [place] [address] [place] [phone] (Wo rk) 03/03/2023 Virtual Visit Neurology Erlinda Barber MD 420 [facility] 295 [place], [place] [address] (Wo rk) documented as of this encounter Visit Diagnoses Not on filedocumented in this encounter Additional Health Concerns Assessment Noted Time PHQ-9 Depression Total Score: 4 04/12/2019 7:03 AM CDT documented as of this encounter Care Teams Architecture Department Chair Relationship Specialty Start Date End Date Galdino Valdez MD PCP - General Family Practice 11/29/19 02/12/20 [address] [place], [place] [phone] Jaiden Holcomb PCP - General Internal Medicine 02/13/2010/03 MD Jayesh [address] [place] [address] [address] [place] [phone] Yane Barraza MD PCP - General Internal Medicine 10/04/21 12/07/[address] [place] [address] [address] [place] [id number] Yane Barraza MD PCP - General Internal Medicine 12/08/[address] [place] [address] [address] [place] [id number] Chastity Montero MD Dermatology 09/23/14 420 [facility] 98 [place], [place] [address] Johnnie Alcocer MD Surgeon General Surgery 03/23/17 [address] [facility] 300 [place], [place] [address] Danni Marcus, CHANDLER Personal Advocate & 6/26/19 7/4 /22 Liaison (PAL) Mtm, Ea Complex 04/23/19 Svetlana Osman, Pharmacist Pharmacotherapy 04/23/19 [facility] [address] [facility] [address] [place], [place] [phone] Haylei Cheung, Pharmacist Pharmacist 09/11/19 [facility] [address] [facility] [address] [place], [place] [phone] Galdino Valdez MD Assigned PCP 11/10/19 05/23/20 [address] [place], [place] [phone] Opal, Assigned Sleep 05/08/20 03/27/21 Kendall Meehan MD Provider [address] [place] [address] 106 [place], [place] [address] Erlinda Barber MD Assigned Neuroscience 05/08/20 01/26/21 420 [facility] 295 Provider [place], [place] [address] Jaiden Holcomb Assigned PCP 05/24/20 MD Jayesh [address] [place], [place] [phone] Ruth John MD Assigned Infectious 01/29/21 07/03/21 [facility] INFECTIOUS Disease Provider [facility] [address] [facility] 245 [place], [place] [phone] Kajal Huggins MD Assigned Neuroscience 01/29/21 10/23/21 2945 [facility] Provider [address] [place], [place] [phone] Patience Toussaint NP Assigned Surgical 01/29/21 02/11/22 2945 [facility] Provider [address] [place], [place] [phone] Brook Sánchez MD Assigned Infectious 07/04/[address] Disease Provider [place], [place] [address] Osmar Kidd MD Assigned Sleep 09/26/[address] [place] [address] Erlinda Barber MD Assigned Neuroscience 10/24/21 [address] [facility] [address] Provider [place], [place] [address] Lenore Alcala MD Assigned Heart and 12/18/21 01/21/[address] [place] Vascular Provider [address] [place] [address] Haylie Cheung, Assigned MTM 01/08/22 [facility] Pharmacist [address] [place] [address] [id number] Gaye Patrick, RN Personal Advocate & 01/18/22 Liaison (PAL) Kenya Abernathy APRN Assigned Heart and 01/22/22 OIL OPERATOR Vascular Provider [address] [place] [address] Hayley German, Assigned Surgical 02/12/22 OD Provider [address] [facility] [place] [address] Haylie Cheung, Assigned MTM 04/13/22 [facility] Pharmacist [address] [place] [address] documented as of this encounter
--- OUTSIDE RECORDS SUMMARY | 2022-06-15 12:55 | XMS_ITS | Encounter Summary ---
:1945 Author Organization [facility] Address [address] [place] [address] Care Team Providers Name Role Phone Chastity Montero MD Unavailable [phone] Johnnie Alcocer MD Unavailable Danni Marcus RN Unavailable Unavailable Mtm, Ea Complex Unavailable Unavailable Svetlana Osman [facility] Unavailable [phone] Haylie Cheung [facility] Unavailable [phone] Galdino Valdez MD Unavailable Galdino Valdez MD Primary Care Provider Reason for Visit Reason Onset Date Comments RECHECK 01/24/2020 [facility] VIDEO RETURN - F OLLOW UP Encounter Details Date Type Department Care Team Description 01/24/2020 Virtual Visit [facility] Neurology Erlinda Barber MD Recurrent seizures [address] [facility] [address] [facility] (H) 3rd Floor [facility] [address] [place] [address] [phone] Social History Tobacco Use Types Packs/Day Years [...] 05/03/2021 organizations such as orthodox groups, unions, fraAutogrid or athletic groups, or school groups? How [...] Patient Instructions Patient InstructionsErlinda Barber MD - 01/24/2020 8:50 AM CDT Times of Days am pm Medication Tablet Size Number of Tablets/Capsules Total Daily Dosage Keppra 500 1 1 1000 mg Carry this with you at all times. CONTINUE TAKING YOUR OTHER MEDICATIONS PREVIOUSLY DIRECTED. * * *Do not store medications in the bathroom. Keep medications away from children!* * * documented in this encounter Progress Notes Erlinda Barber MD - 01/24/2020 8:50 AM CDT Charlette Brush is a 75 [...] to obtain your AVS? Mail a copy Patient would like the video invitation sent by: Ayo Will anyone else be joining your video visit? No CHIEF COMPLAINT: New onset seizure. HISTORY OF PRESENT ILLNESS: Video call for follow up. She is a 75-year-old right-handed female with new onset seizure in 2018. She had only one seizure in her life time,which was on 03/15/2019. Since the last visit, she had no seizures. She is currently taking Keppra 500 mg bid. She is compliant with her medications. No side effects were reported. She is happy with the results. According to the patient and her daughter, [...] with loss of consciousness. No history of VASCULAR SURGEON infection. No history of febrile convulsions. No history of brain tumor, no history of stroke. She had normal and development. CURRENT AEDs: 1. Keppra 500 mg bid. ?? Current Outpatient Medications Medication Sig Dispense Refill ??? acetaminophen (TYLENOL) 325 MG tablet Take 2 tablets (650 mg) by mouth every 4 hours as needed for mild pain ??? ascorbic acid (VITAMIN C) 500 MG tablet Take 500 mg by mouth daily ??? atenolol (TENORMIN) 25 MG tablet Take 1 tablet (25 mg) by mouth 2 times daily 180 tablet 1 ??? cetirizine (ZYRTEC) 10 MG tablet Take 10 mg by mouth 2 times daily ??? Cholecalciferol (VITAMIN D PO) Take 2,000 Units by mouth daily ??? ferrous sulfate (FEROSUL) 325 (65 Fe) MG tablet TAKE 1 TABLET(325 MG) BY MOUTH every other day DAILY WITH BREAKFAST 100 tablet 3 ??? furosemide (LASIX) 40 MG tablet Take 0.5-1 tablets (20-40 mg) by mouth daily as needed (for leg swelling) 90 tablet 0 ??? hydrocortisone 2.5 % ointment Daily as needed to rash on arms and legs 180 g 3 ??? levETIRAcetam (KEPPRA) 500 MG tablet Take 1 tablet (500 mg) by mouth 2 times daily 180 tablet 3 ??? losartan (COZAAR) 50 MG tablet Take 1 tablet (50 mg) by mouth daily 90 tablet 1 ??? Multiple Vitamins-Minerals (PRESERVISION/LUTEIN) CAPS Take 1 tablet by mouth 2 times daily ??? multivitamin w/minerals (THERA-VIT-M) tablet Take 1 tablet by mouth daily ??? nystatin (MYCOSTATIN) 628602 UNIT/GM external cream Apply topically daily as needed (irritation)90 g 0 ??? nystatin (NYSTOP) 918168 UNIT/GM external powder APPLY TOPICALLY TO THE AFFECTED AREA BENEATH BILATERAL BREAST/GROIN FOLDS TWICE DAILY UNTIL RESOLVED 180 g 8 ??? order for DME Equipment being ordered: Bariatric 4-wheeled walker Seat width needs to be 20 inches or greater Handlebar width needs to be 22 inches or greater 1 each 0 ??? triamcinolone (KENALOG) 0.1 % external ointment Apply topically 2 times daily as needed for irritation 45 g 0 ??? warfarin ANTICOAGULANT (COUMADIN) 10 MG tablet TAKE 1 TABLET BY MOUTH EVERY DAY, ADJUST DOSE PERINR RESULTS. 90 tablet 1 ??? warfarin ANTICOAGULANT (COUMADIN) 3 MG tablet Take 1 tablet (3 mg) by mouth daily Take 1 tablet (3 mg) with a 10 mg tablet on Monday or as directed, 30 tablet 1 PAST ANTISEIZURE MEDICATIONS: None. ALLERGIES: Cephalexin, lanolin, [...] tonic-clonic seizures. SOCIAL HISTORY: She lives in [place]. She had regular classes in the past. [...] and the left temporal epileptiform activities. ?? She had only one seizure in her life time,which was on [...] 1. Continue Keppra 500 mg twice daily. 2. Return to clinic in 6 months. Video-Visit Details Type of service: Video Visit Video Start Time: 9:05 AM Video End Time: 9:21 AM Originating Location (pt. Location): Home Distant Location (provider location): [employer] NEUROLOGY Platform used for Video Visit: [employer] 16 min was spent on the visit. Over 50% of the time was spent on education, counseling about optimalseizure control and coordination of care. Erlinda Barber MD documented in this encounter Plan of Treatment Upcoming Encounters Date Type Specialty Care Team Description 11/15/2022 Virtual Visit Pharm Haylie Gonzalez, [facility] [address] [facility] [place] [address] (Lena max) 11/15/2022 Virtual Visit [place] [address] [place] [address] [place] [id number] (Lena max) 03/03/2023 Virtual Visit Neurology Erlinda Barber MD 420 [facility] 295 [place] [address] (Lena max) documented as of this encounter Visit Diagnoses Diagnosis Recurrent seizures (H) 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 documented in this encounter Additional Health Concerns Assessment Noted Time PHQ-9 Depression Total Score: 4 04/12/2019 7:03 AM CDT documented as of this encounter Care Teams Beater Lead Relationship Specialty Start Date End Date Galdino Valdez MD PCP - General Family Practice 11/29/19 02/12/20 [address] [place], [place] [id number] Chastity Montero MD Dermatology 09/23/14 [address] [facility] 98 [place], [place] [address] Johnnie Alcocer MD Surgeon General Surgery 03/23/[address] [place], [place] [address] Danni Marcus, HCANDLER Personal Advocate & 01/09/1901/17 Liaison (PAL) Fernando, Ea Complex 04/23/19 Svetlana Osman, Pharmacist Pharmacotherapy 04/23/19 [facility] [address] [place], [place] [id number] Haylie Cheung, Pharmacist Pharmacist 09/11/19 [place] [address] [address] [place], [place] [id number] Galdino Valdez MD Assigned PCP 11/10/19 05/23/20 [address] [place] [address] documented as of this encounter
--- OUTSIDE RECORDS SUMMARY | 2022-06-15 12:55 | XMS_ITS | Encounter Summary ---
:1945 Author Organization [facility] Address [address] [place] [address] Care Team Providers Name Role Phone Chastity Montero MD Unavailable [phone] Johnnie Alcocer MD Unavailable Danni Marcus RN Unavailable Unavailable Mtm, Ea Complex Unavailable Unavailable Svetlana Osman [facility] Unavailable [phone] Haylie Cheung [facility] Unavailable [phone] Galdino Valdez MD Unavailable Jaiden Holcomb MD Primary Care Provider [phone] Encounter Details Date Type Department Care Team Description 02/14/2020 Anticoagulation Therapy [facility] Zhang, 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 embolism; Visit Clinic Yarelis Hwang Paroxysmal atrial fibrillati on (H); [address] MD Jayesh exterminator current use of anticoagulant t [address] [facility] [address] Social History Tobacco Use Types Packs/Day [...] 05/03/2021 organizations such as christianity groups, unions, [employer] or athletic groups, or school groups? How [...] encounter Progress Notes Brie Mack, CHANDLER - 02/14/2020 11:54 AM CDT ANTICOAGULATION MANAGEMENT Patient Name: Cahrlette Brush Date: 02/14/2020 ASSESSMENT /SUBJECTIVE: Today's INR result of 2.7 is therapeutic. Goal INR of 2.0-3.0 ??? Warfarin dose taken: Warfarin taken as previously instructed ??? Diet: No new diet changes affecting INR ??? Medication changes/ interactions: No new medications/supplements affecting INR ??? Previous INR: Therapeutic ??? S/S of bleeding or thromboembolism: No ??? New injury or illness: No ??? Upcoming surgery, procedure or cardioversion: No ??? Additional findings: None PLAN: Spoke with Laquita in home tutor, and Charlette regarding INR result and instructed: Warfarin Dosing Instructions: Continue your current warfarin dose 5 mg F and 10 mg ROW Instructed patient to follow up no later than: 2 weeks Orders given to Homecare nurse/facility to recheck Education provided: None required Laquita/Charlette verbalizes understanding and agrees to warfarin dosing plan. Instructed to call the Anticoagulation Clinic for any changes, questions or concerns. (#[phone]) Brie Mack RN OBJECTIVE: Recent labs: (last 7 days) 02/14/20 INR 2.7* No question data found. 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 Anticoagulation Care Providers Provider Role Specialty Phone number Galdino Valdez MD Referring Family Practice [phone] [facility] Responsible Internal Medicine [phone] documented in this encounter Plan of Treatment Upcoming Encounters Date Type Specialty Care Team Description 11/15/2022 Virtual Visit Pharm D Haylie Cheung, [facility] 1440 [facility] [place] [address] (Lena max) 11/15/2022 Virtual Visit [place] [address] [place] [address] [place] [id number] (Lena max) 03/03/2023 Virtual Visit Neurology Erlinda Barber MD 420 [facility] [address] [place] [address] (Lena max) documented as of this encounter Procedures Procedure Name Priority Date/Time Associated Diagnosis Comme nts INR Routine 02/14/2020 Results for thi s procedure are in the resu lts section. documented in this encounter Results (ABNORMAL) INR (02/14/2020) P athologist Signature INR 2.7 (A) 0.90 - 1.10 EXTERNAL LAB Specimen (Source) Anatomical Location Collection Method / Collectio n Time Received Time / Laterality Volume Blood specimen 02/14/2020 (specimen) Patient Reported LAB - BLOOD ORDERABLES [...] documented as of this encounter Care Teams Staff Development Nurse Relationship Specialty Start Date End Date Jaiden Holcomb PCP - General Internal Medicine 02/13/2010/03 MD Jayesh [address] [facility] [place] [address] Chastity Montero MD Dermatology 09/23/14 MD Martha 420 [facility] 98 [place], [place] [address] Johnnie Alcocer MD Surgeon General Surgery 03/23/17 [address] [facility] [address] [place] [address] Danni Marcus, CHANDLER Personal Advocate & 01/09/1901/17 Liaison (PAL) Kyle King Complex 04/23/19 Svetlana Osman Pharmacist Pharmacotherapy 04/23/19 Era, [facility] [address] [place] [address] Haylie Cheung, Pharmacist Pharmacist 09/11/19 [facility] [address] [place] [address] Galdino Valdez MD Assigned PCP 11/10/19 05/23/20 [address] [place] [address] documented as of this encounter
--- OUTSIDE RECORDS SUMMARY | 2022-06-15 12:55 | XMS_ITS | Encounter Summary ---
:1945 Author Organization [facility] Address [address] [place] [address]. [place] [address] Care Team Providers Name Role Phone Chastity Montero MD Unavailable [phone] Johnnie Alcocer MD Unavailable Danni Marcus RN Unavailable Unavailable Mtm, Ea Complex Unavailable Unavailable Svetlana Osman [facility] Unavailable [phone] Haylie Cheung [facility] Unavailable [phone] Galdino Valdez MD Unavailable Galdino Valdez MD Primary Care Provider Encounter Details Date Type Department Care Team Description 01/31/2020 Anticoagulation Therapy [facility] Galdino Valdez 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 embolism; Visit Clinic Radha Walton MD half-way current use of anticoagulant [address], [address] [place] [address] [phone] Social History Tobacco Use Types Packs/Day Years [...] More than 4 times per year 05/03/2021 christianity services? Do you belong to any clubs or No 05/03/2021 organizations such as oriental orthodox groups, unions, fraCoaLogix or athletic groups, or school groups? How [...] encounter Progress Notes Fadumo Davies RN - 01/31/2020 2:11 PM CDT ANTICOAGULATION MANAGEMENT Patient Name: Charlette Brush Date: 01/31/2020 ASSESSMENT /SUBJECTIVE: Today's INR result of 3.0 is therapeutic. Goal INR of 2.0-3.0 ??? Warfarin dose taken: Warfarin taken as previously instructed ??? Diet: No new diet changes affecting INR ??? Medication changes/ interactions: No new medications/supplements affecting INR ??? Previous INR: Supratherapeutic ??? S/S of bleeding or thromboembolism: No ??? New injury or illness: No ??? Upcoming surgery, procedure or cardioversion: No ??? Additional findings: None PLAN: Spoke with Juanita home care, regarding INR result and instructed: Warfarin Dosing Instructions: Continue your current warfarin dose 5 mg on monday and 10 mg all the other days Instructed patient to follow up no later than: 2 weeks Orders given to Homecare nurse/facility to recheck Education provided: None required Juanita, home care, verbalizes understanding and agrees to warfarin dosing plan. Instructed to call the Anticoagulation Clinic for any changes, questions or concerns. (#[phone]) Fadumo Davies RN OBJECTIVE: Recent labs: (last 7 days) 01/31/20 INR 3.0* No question data found. 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 Anticoagulation Care Providers Provider Role Specialty Phone number Lucero Stevenson MD [facility] Internal Medicine [phone] documented in this encounter Plan of Treatment Upcoming Encounters Date Type Specialty Care Team Description 11/15/2022 Virtual Visit Pharm D Haylie Cheung, [facility] 14[address] [facility] [place] [address] (Lena max) 11/15/2022 Virtual Visit IM/Peds Yane Barraza MD 3305 [facility] [place] [phone] (Lena max) 03/03/2023 Virtual Visit Neurology Erlinda Barber MD 420 [facility] 295 [place] [address] (Lena max) documented as of this encounter Procedures Procedure Name Priority Date/Time Associated Diagnosis Comme nts INR Routine 01/31/2020 Results for thi s procedure are in the resu lts section. 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 of anticoagulant t herapy documented in this encounter Additional Health Concerns Assessment Noted Time PHQ-9 Depression Total Score: 4 04/12/2019 7:03 AM CDT documented as of this encounter Care Teams Dredge Operator Relationship Specialty Start Date End Date Galdino Valdez MD PCP - General Family Practice 11/29/19 02/12/20 [address] [place], [place] [phone] Chastity Montero MD Dermatology 09/23/14 [place] 420 [facility] 98 [place], [place] [address] Johnnie Alcocer MD Surgeon General Surgery 03/23/[address] [place], [place] [address] Danni Marcus, CHANDLER Personal Advocate & 01/09/1901/17 Liaison (PAL) Fernando, Ea Complex 04/23/19 Svetlana Osman, Pharmacist Pharmacotherapy 04/23/19 [facility] [address] [place], [place] [phone] Haylie Cheung, Pharmacist Pharmacist 09/11/19 [facility] [address] [place] [address] Galdino Valdez MD Assigned PCP 11/10/19 05/23/20 [address] [place], [place] [phone] documented as of this encounter
--- OUTSIDE RECORDS SUMMARY | 2022-06-15 12:56 | XMS_ITS | Encounter Summary ---
:1945 Author Organization [facility] Address [address] [place] [address] Care Team Providers Name Role Phone Chastity oMntero MD Unavailable [phone] Johnnie Alcocer MD Unavailable Danni Marcus RN Unavailable Unavailable Mtm, Ea Complex Unavailable Unavailable Svetlana Osman [facility] Unavailable [phone] Haylie Cheung [facility] Unavailable [phone] Galdino aVldez MD Unavailable Galdino Valdez MD Primary Care Provider Jaiden Holcomb MD Primary Care Provider Kendall Joseph MD Unavailable Erlinda Barber MD Unavailable Jaiden Holcomb MD Unavailable [phone] Encounter Details Date Type Department Care Team Description 12/12/2019 Ambulatory - M [facility] Pressure i njury of left ischium, stage 4 (H); [facility] Leg wilberto g; Laboratory Hypoalbuminemia; [address] Injury of left sciatic nerve, sequela; [address] Lymphedema of both lower ext remities; [place], [place] Left foot drop ; [address] Venous hypertension of lower extremity, bilateral; [phone] Morbid obesity with BMI of 50.0-59.9, adult (H); Necrotizing fas ciitis (H) Social History Tobacco Use Types Packs/Day [...] Pharm Haylie Gonzalez, [facility] [address] [facility] [place] [address] (Wo rk) 11/15/2022 Virtual Visit IM/Peds Yane Barraza MD 3[address] [facility] [place] [address] (Wo rk) 03/03/2023 Virtual Visit Neurology Erlinda Barber MD 420 [facility] [address] [place] [address] (Wo rk) documented as of this encounter Procedures Procedure Name Priority Date/Time Associated Diagnosis Comme nts VITAMIN B6 Routine 12/12/2019 11:22 AM Results for this CDT procedure are i n the results section . VITAMIN B12 Routine 12/12/2019 11:22 AM Results for this CDT procedure are i n the results section . documented in this encounter Results Vitamin B12 (12/12/2019 11:22 AM CDT) athologist Signature Vitamin B12 [phone] 12/12/2019 [facility] pg/mL 6:13 PM CDT [facility] Specimen Anatomical Collection Method / Collection Time Recei yudy Time (Source) Location / Volume Laterality Blood specimen Venipuncture / 12/12/2019 11:22 020 4:06 (specimen) Unknown AM CDT PM CDT Kajal Huggins MD LAB - BLOOD ORDERABLES Performing Organization Address City/State/ZIP Code [place] [address] [address] [facility] Vitamin B6 (12/12/2019 11:22 AM CDT) athologist Signature Vitamin B6 40.1 20.0 - 12/14/2019 [employer] 125.0 11:08 AM CDT nmol/L Comment: INTERPRETIVE INFORMATION: Vitamin B6 (Py ridoxal 5-Phosphate) Pyridoxal 5'-phosphate measured in a spe cimen collected following an 8-hour or overnight fast accurately i ndicates vitamin B6 nutritional status. Non-fasting specimen concentration reflects recent vitamin intake. Test developed and characteristics deter mined by [employer]. See Compliance Statement B : [employer]CS Performed by [employer], [address] [place] [address] [email or web address], Chu Barry MD, Lab. Director Specimen Anatomical Collection Method / Collection Time Recei yudy Time (Source) Location / Volume Laterality Blood specimen Venipuncture / 12/12/2019 11:22 020 (specimen) Unknown AM CDT 10:56 AM CDT Kajal Huggins MD LAB - BLOOD ORDERABLES Performing Organization Address City/State/ZIP Code Phon e Number [facility] [place], [place] [phone] [address] [facility] [address] [facility] [address] [place] [address] documented in this encounter Visit Diagnoses Diagnosis Pressure injury of left ischium, stage 4 (H) Leg swelling Swelling of limb Hypoalbuminemia 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 of left sciatic nerve, sequela Lymphedema of both lower extremities Left foot drop Other acquired deformity of ankle and fo ot Venous hypertension of lower extremity, bilateral Morbid obesity with BMI of 50.0-59.9, ad ult (H) Necrotizing fasciitis (H) Necrotizing fasciitis documented in this encounter Additional Health Concerns Assessment Noted Time PHQ-9 Depression Total Score: 4 04/12/2019 7:03 AM CDT documented as of this encounter Care Teams Boilermaker Industrial Boilers Relationship Specialty Start Date End Date Galdino Valdez MD PCP - General Family Practice 11/29/19 02/12/20 [address] [place] [address] Jaiden Holcomb PCP - General Internal Medicine 02/13/2010/03 MD Jayesh [address] [facility] [address] [place] [phone] Chastity Montero MD Dermatology 09/23/[address] [place] [address] 98 [place], [place] [address] Johnnie Alcocer MD Surgeon General Surgery 03/23/[address] [place], [place] [phone] Danni Marcus, CHANDLER Personal Advocate & 01/09/1901/17 Liaison (PAL) Fernando, Ea Complex 04/23/19 Svetlana Osman, Pharmacist Pharmacotherapy 04/23/[address] [place] [phone] Haylie Cheung, Pharmacist Pharmacist 09/11/19 [facility] [address] [facility] [address] [place] [phone] Galdino Valdez MD Assigned PCP 11/10/19 05/23/20 [address] [place], [place] [phone] Opal, Assigned Sleep 05/08/20 03/27/21 Kendall Meehan MD Provider [address] [place], [place] [phone] Erlinda Barber MD Assigned Neuroscience 05/08/20 01/26/21 [address] [facility] [address] [place] [address] Jaiden Holcomb Assigned PCP 05/24/20 MD Jayesh 909 [place], [place] [phone] documented as of this encounter
--- OUTSIDE RECORDS SUMMARY | 2022-06-15 12:56 | XMS_ITS | Encounter Summary ---
:1945 Author Organization [place] Address On license of [facility] [place] [address] Care Team Providers Name Role Phone Chastity Montero MD Unavailable [phone] Johnnie Alcocer MD Unavailable Danni Marcus RN Unavailable Unavailable Mtm, Ea Complex Unavailable Unavailable Svetlana Osman [facility] Unavailable [phone] Haylie Cheung [facility] Unavailable [phone] Galdino Valdez MD Unavailable Galdino Valdez MD Primary Care Provider Jaiden Holcomb MD Primary Care Provider [phone] Kendall Joseph MD Unavailable Erlinda Barber MD Unavailable Jaiden Holcomb MD Unavailable [phone] Reason for Visit Reason Comments Other left IT Encounter Details Date Type Department Care Team Description 12/23/2019 Office Visit - [facility] Kajal Huggins Pre ssure injury of left ischium, stage 4 (H); [facility] MD Amari Leg swelling; [place] [address] [facility] Hypoalbuminemia; [address] Lymphedema of both lower extremities; [address] [place], [place] Venous hypertension of lower extremity, bilateral; [place] [address] Morbid obesity with BMI of 50.0-59.9, ad ult (H); [id number] Necrotizing fasciitis (H) Social History Tobacco Use Types Packs/Day [...] Sign Reading Time Taken Comments Blood Pressure 136/100 12/23/2019 10:59 AM CDT right wr ist Pulse 84 12/23/2019 10:59 AM CDT Temperature 36.7 ??C (98.1 ??F) 12/23/2019 10:59 AM CDT Respiratory Rate 20 12/23/2019 10:59 AM CDT Oxygen Saturation - - Inhaled Oxygen Concentration - - Weight - - Height 170.2 cm (5' 7) 12/23/2019 10:59 AM CDT Body Mass Index - - documented in this encounter Progress Notes Kajal Huggins MD - 12/23/2019 11:15 AM CDT Images from the original note were not included. Progress Notes by Kajal Huggins MD at 12/23/2019 11:15 AM Author: Kajal Huggins MD Service: -- Author Type: Physician Filed: 12/23/2019 1:13 PM Encounter Date: 12/23/2019 Status: Signed Nnps: Kajal Huggins MD (Physician) Date of Service: 12/23/2019 Date last seen by Dr. Huggins: 12/12/2019 PCP: Doris Lai MD Impression: ?? 1. Left ischial ulceration chronic 2. Hypoalbuminemia 3. Bilateral leg swelling with some slight acquired lymphatic dysfunction 4. 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 History of necrotizing fasciitis 6. History of osteomyelitis 7. Morbid obesity 8. Nutritional deficiencies ?? Plan: 1. Type of swelling was reviewed in detail with the patient. Questions were answered and education was completed. [...] Total excisional debridement was 28 sq cm into the muscle/fascia. Ulcer was improved afterwards and core cleaner. Measures were as noted on the flow sheet . 3. Wound treatment will include irrigation and dressings to promote autolytic debridement and will be: R IT prontosan gel or hibiclens wash then NS followed by endoform deep packing then alginate with silver to fill then foam with silicon border. ??May use barrier cream to protect klever wound skin. ??Change daily. ??May go to every other day if exudate controlled. ??Keep wound warm and moist, not wet or dry. ??Keep pressure off!!! 4. She uses a Flexitouch. It has been helping and she should continue to use it. 5. Continue modified exercise and compression. 6. She has lost over 100 pounds in the past. She is always been extremely heavy. In the future consideration of consultation to bariatric medicine may be of benefit. 7. Patient will follow up in 3 weeks, or when needed. Down the line placement of a VAC may be in order. If any questions or concerns they are to contact the clinic. Time spent with patient 15 minutes with [...] practitioner on 05/15/2019. MRI of the pelvis was ordered which showed possible early osteomyelitis. She was debrided and wound was irrigated with Hibiclens followed by Aquacel Ag super absorbent pad. She had gel cushions and low air loss mattress repositioning every hour. She was instructed on nutritional supplementation of protein. VAC was tried with difficulty keeping it in place. She was seeing infectious disease with PICC line placement and antibiotics. The VAC was discontinued. The osteomyelitis was felt to be treated and she was continued on the Aquacel Ag with Tegaderm and foam. She was referred to Dr. Steward for possible flap and closure. He felt she was not a surgical candidate due to ulcer being too large and how overweight she was. She had also seen Dr. Mindy Biswas on 08/23/2018 who also felt that she was not a good surgical candidate due to high risk of dehiscence or failure. She was referred to me becauseof continued problems healing. Patience Toussaint got a number of nutritional labs and inflammatory labs. P realbumin was slightly decreased at 16.4. ESR was slightly elevated at 23 but much improved from a year ago. CRP was 0.7 and now normal. Vitamin A, C, D and zinc levels were pending. It is also noted that in the past she had been treated for lymphedema with full lymphedema therapy and provided with a lymphedema pump and CircAid for her legs. She also has a history of machine long goods helper anticoagulation with history of PE and paroxysmal a-fib. When I saw her in clinic on 12/02/2019 the [...] appeared to be appropriate and fitting well. She is following up today and VAC placement is being considered. Nursing reports to me however when they took off the dressing she does not have the dressings that I ordered. She still has the previous dressings. Past Medical History: Diagnosis Date ? 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 ? Morbid obesity (H) ? [...] Referral placed for Dr. Kajal Huggins at [facility] in [place] per patient request. She has contact i [...] by mouth daily., Disp: , Rfl: ? axssffqlpkgt-eyzsaxrp-eanxoe (CEROVITE SENIOR) tablet, Take 1 tablet by [...] file Gets together: Not on file Attends sabianist service: Not on file Active member of [...] PELVIS WITHOUT AND WITH IV CONTRAST LOCATION: [facility] DATE/TIME: 05/24/2019 12:03 PM ?? INDICATION: [...] Vitamin B-12 213 - 816 pg/mL 636 Physical Exam: Vitals: 12/23/19 1059 BP: (!) 136/100 Pulse: 84 Resp: 20 Temp: 98.1 ??F (36.7 ??C) Weight 353 lbs Circumferential measures: No flowsheet data found. VASC Wound 05/15/19 Buttocks (Active) Pre Size Length 5 12/12/19 0900 Pre Size Width 5 12/12/19 0900 Pre Size Depth 6 12/12/19 0900 Pre Total Sq cm 25 12/12/19 0900 Post Size Length 4 12/12/19 0900 Post Size Width 5 12/12/19 0900 Post Size Depth 3 12/12/19 0900 Post Total Sq cm 20 05/28/20 0900 Undermined no 12/12/19899 Tunneling no 12/12/19899 Description pink, macerated 12/12/19899 General: 74 y.o. female in no apparent distress. Psych: Alert and oriented x 3. Cooperative. Affect normal. HEENT: Atraumatic, normocephalic Integumentary: Ulceration now measures 6 X 5.4 cm X 4.7 cm depth. Gear Hobber Set Up Operator. 65% granulation tissue. It is basically unchanged. Moderate serosanguinous drainage and no odor. 12/12/2019 L IT 12/23/2019 Kajal Huggins MD, Diplomate ABWMS, FACCWS, FAAPMR Cable Respooler Wound Care and Lymphedema [facility] [phone] This note was dictated using a voice recognition software. Any grammatical or context distortion areunintentional and inherent to the software. documented in this encounter Miscellaneous Notes Letter - Historical Provider - 12/31/2020 7:57 PM CDT Letter by Kajal Huggins MD at Author: Kajal Huggins MD Service: -- Author Type: -- Filed: Encounter Date: 12/23/2019 Status: (Other) 12/23/2019 [facility] Fax: Wound Dressing Rx and Order Form Customer Service: Order Status: New Order Verbal: Patience Martinez RN Patient Info: Name: Charlette Brush : 1945 Address: [address] [place] [address] [place] [address] Insurance Info: Primary: Payor: MEDICARE / Plan: MEDICARE A AND B / Product Type: Medicare / Secondary: [place]UE [place] [id number] - (Medicare) Physician Info: Name: Kajal Huggins MD Dept Address/Phones: [address] [place] [address], [address] [facility] [address] Wound info: Encounter Diagnoses Name Primary? ? Pressure injury of left ischium, stage 4 (H) Yes ? Leg swelling ? Hypoalbuminemia ? Lymphedema of both lower extremities ? Venous hypertension of lower extremity, bilateral ? Morbid obesity with BMI of 50.0-59.9, adult (H) ? Necrotizing fasciitis (H) VASC Wound 05/15/19 Buttocks (Active) Pre Size Length 6 12/23/19 1000 Pre Size Width 5.4 12/23/19 1000 Pre Size Depth 6 12/23/19 1000 Pre Total Sq cm 32.4 12/23/19 1000 Post Size Length 5.5 12/23/19 1000 Post Size Width 6.3 12/23/19 1000 Post Size Depth 5.8 12/23/19 1000 Post Total Sq cm 34.65 12/23/19 1000 Undermined no 12/12/19 0900 Tunneling no 12/12/19 0900 Description pink, macerated 12/12/19 09 Drainage: Moderate Thickness: Full Duration of Need: 30 Days Supply: 30 Start Date: 12/23/2019 Starter Kit: Ancillary Kit (saline, gloves, gauze) Qualifying wound/Debridement Yes Dressing Type Brand Size Number of pieces Frequency of change Primary {Change Frequency (Optional):37527} {Change Frequency (Optional):39353} {Change Frequency (Optional):47894} {Change Frequency (Optional):28375} {Change Frequency (Optional):21335} {Change Frequency (Optional):71086} Secondary {Change Frequency (Optional):51942} {Change Frequency (Optional):06597} {Change Frequency (Optional):05785} {Change Frequency (Optional):36809} {Change Frequency (Optional):10501} Tape {Change Frequency (Optional):59434} {Change Frequency (Optional):02133} {Change Frequency (Optional):78790} Note: If total out of pocket is more than $50.00 please contact the patient before processing order. OK to forward to covered supplier. Electronically Signed Physician: Kajal Huggins MD Date: 12/23/2019 Patient Instructions - Patience Randle RN - 12/23/2019 11:15 AM CDT Wound Care: ?? Prontosan gel or hibiclens wash then NS followed by endoderm deep packing then alginate with silver to fill then foam with silicon border. May use barrier cream to protect klever wound skin. Change daily. May go to every other day if exudate controlled. Keep wound warm and moist, not wet or dry. Keep pressure off!!! documented in this encounter Plan of Treatment Upcoming Encounters Date Type Specialty Care Team Description 11/15/2022 Virtual Visit Pharm D Haylie Cheung, [facility] [address] [place] [address] (Wo rk) 11/15/2022 Virtual Visit [place] [address] [place] [address] [address] [place] [id number] (Wo rk) 03/03/2023 Virtual Visit Neurology Erlinda Barber MD [address] [facility] [address] [place] [address] (Wo rk) documented as of this encounter Visit Diagnoses Diagnosis Pressure injury of left ischium, stage 4 (H) Leg swelling Swelling of limb Hypoalbuminemia Other disorders of plasma protein metabo lism Lymphedema of both lower extremities Venous hypertension of lower extremity, bilateral Morbid obesity with BMI of 50.0-59.9, ad ult (H) Necrotizing fasciitis (H) Necrotizing fasciitis documented in this encounter Additional Health Concerns Assessment Noted Time PHQ-9 Depression Total Score: 4 04/12/2019 7:03 AM CDT documented as of this encounter Care Teams Surveying Or Spatial Science Technician Relationship Specialty Start Date End Date Galdino Valdez MD PCP - General Family Practice 11/29/19 02/12/20 [address] [place], [place] [id number] Jaiden Holcomb PCP - General Internal Medicine 02/13/2010/03 MD Jayesh [address] [facility] [place] [address] Chastity Montero MD Dermatology 09/23/14 MD [address] [facility] [address] [place] [address] Johnnie Alcocer MD Surgeon General Surgery 03/23/[address] [place], [place] [address] Danni Marcus, CHANDLER Personal Advocate & 01/09/1901/17 Liaison (PAL) Fernando, Ea Complex 04/23/19 Svetlana Osman, Pharmacist Pharmacotherapy 04/23/19 [facility] [address] [place] [address] [place] [address] Haylie Cheung, Pharmacist Pharmacist 09/11/19 [place] [address] [place], [place] [id number] Galdino Valdez MD Assigned PCP 11/10/19 05/23/20 [address] [place], [place] [phone] Opal, Assigned Sleep 05/08/20 03/27/21 Kendall Meehan MD Provider [address] [place], [place] [id number] Erlinda Barber MD Assigned Neuroscience 05/08/20 01/26/[address] [facility] [address] Provider [place], [place] [id number] Jaiden Holcomb Assigned PCP 05/24/20 MD Jayesh [address] [place], [place] [phone] documented as of this encounter
--- OUTSIDE RECORDS SUMMARY | 2022-06-15 12:56 | XMS_ITS | Encounter Summary ---
:1945 Author Organization [place] Address [facility] [place] [address] Care Team Providers Name Role Phone Chastity Montero MD Unavailable [phone] Johnnie Alcocer MD Unavailable Danni Marcus RN Unavailable Unavailable Mtm, Ea Complex Unavailable Unavailable Svetlana Osman [facility] Unavailable [phone] Haylie Cheung [facility] Unavailable [phone] Galdino Valdez MD Unavailable Galdino Valdez MD Primary Care Provider Jaiden Holcomb MD Primary Care Provider Kendall Joseph MD Unavailable Erlinda Barber MD Unavailable Jaiden Holcomb MD Unavailable Reason for Visit Reason Comments Tailbone Pain Encounter Details Date Type Department Care Team Description 01/09/2020 Office Visit - [facility] Kajal Huggins Pre ssure injury of left ischium, stage 4 (H); [facility] MD Amari Leg swelling; [place] [address] [facility] Lymphedema of both lower ext remities; [address] Venous hypertension of lower extremity, bilateral; [address] [place] Necrotizing fasciitis (H); [place] [address] Left foot drop; [id number] Morbid obesity with BMI of 5 0.0-59.9, adult (H) Social History Tobacco Use Types Packs/Day [...] Sign Reading Time Taken Comments Blood Pressure 126/78 01/09/2020 1:07 PM CDT left wris t Pulse 68 01/09/2020 1:07 PM CDT Temperature 37.1 ??C (98.8 ??F) 01/09/2020 1:07 PM CDT Respiratory Rate 20 01/09/2020 1:07 PM CDT Oxygen Saturation - - Inhaled Oxygen Concentration - - Weight - - Height 170.2 cm (5' 7) 01/09/2020 1:07 PM CDT Body Mass Index - - documented in this encounter Progress Notes Kajal Huggins MD - 01/09/2020 1:15 PM CDT Images from the original note were not included. Progress Notes by Kajal Huggins MD at 01/09/2020 1:15 PM Author: Kajal Huggins MD Service: -- Author Type: Physician Filed: 01/09/2020 2:43 PM Encounter Date: 01/09/2020 Status: Signed Major Donor Coordinator: Kajal Huggins MD (Physician) Date of Service: 01/09/2020 Date last seen by Dr. Huggins: 12/23/2019 PCP: Doris Lai MD Impression: ?? 1. Left ischial ulceration chronic-stable 2. Hypoalbuminemia 3. Bilateral leg swelling with [...] the muscle/fascia. 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 Measures were as noted on the [...] 150 mmHg to accommodate comfort or wound drainag e.If foam adheres to wound, may use a single layer, wide meshed, non-adherent dressing (e.g. Adapticgauze, Aquaphor, ) in wound bed prior to foam placement.Back-Up Plan: ??When NWPT not available, place moist gauze in wound bed, cover with appropriate dressing to keep wound bed moist. ??Change 1-2 times daily until negative pressure can be reapplied. 4. She uses a Flexitouch. It has been helping and she should continue to use it. 5. Continue modified exercise and compression. 6. She has lost over 100 pounds in the past and is now waiting to hear from bariatric medicine to work with them. 7. Patient will follow up in 3-4 weeks, or when needed. May see me or Patience Rader Time spent with patient 15 minutes with greater than 50% time in consultation, education and coordination of care, excluding procedures. CChief Complaint: Left IT pressure ulcer History of Present Illness: Charlette Brush returns to the [facility] [...] and foam. She was referred to Dr. Stewrad for possible flap and closure. He felt [...] levels were normal. In the past she hadbeen treated for lymphedema with full lymphedema therapy and provided with a lymphedema pump and CircAid for her legs. She also has a history of skilled nursing anticoagulation with history of PE and paroxysmal a-fib. When I saw her in clinic on 12/02/2019 the area was debrided. We discussed the wound in detail. I changed her wound dressings to R IT prontosan gel or hibiclens wash then NS followed by endoderm deep packing then alginate with silver to fill then foam with silicon border. ??May use barrier cr eam to protect klever wound skin. ??Change daily. ??May go to every other day if exudate controlled. ??Keep wound warm and moist, not wet or dry. ??Keep pressure off!!!. I also added vitamin B 12 and U4tqapad. We discussed use of the Flexitouch. I checked her left AFO brace for her left foot drop and this appeared to be appropriate and fitting well. At follow up the dressings were not what was ordered. She debridement and my nurses worked on getting the appropriate dressings continued. She is following up today and VAC placement is being considered. She has not had a fever and is feeling good. The left foot developed a callus and she had her brace adjusted. Past Medical History: Diagnosis Date ? 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 ? Morbid obesity (H) ? [...] placed for Dr. Kajal Huggins at [facility] in [place] per patient request. She has contact i [...] by mouth daily., Disp: , Rfl: ? rdudcpxhaenz-[id number]-jvlasb (CEROVITE SENIOR) tablet, Take 1 tablet by [...] file Gets together: Not on file Attends moravian service: Not on file Active member of [...] PELVIS WITHOUT AND WITH IV CONTRAST LOCATION: [facility] DATE/TIME: 05/24/2019 12:03 PM ?? [...] - 816 pg/mL 636 Physical Exam: Vitals: 01/09/20 1307 BP: 126/78 Pulse: 68 Resp: 20 Temp: 98.8 ??F (37.1 ??C) Weight 353 lbs Circumferential measures: No flowsheet data found. VASC Wound 05/15/19 Buttocks (Active) Pre Size Length 6 01/09/20 1300 Pre Size Width 5 01/09/20 1300 Pre Size Depth 6 01/09/20 1300 Pre Total Sq cm 30 01/09/20 1300 Post Size Length 4.5 01/09/20 1300 Post Size Width 5.3 01/09/20 1300 Post Size Depth 3.9 01/09/20 1300 Post Total Sq cm 23.85 01/09/20 1300 Undermined no 12/12/19 0900 Tunneling no 12/12/19 0900 Description red 01/09/20 1300 General: 75 y.o. female in no apparent distress. Psych: Alert and oriented x 3. Cooperative. Affect normal. HEENT: Atraumatic, normocephalic Integumentary: Ulceration now measures 4.5 X 5.3 cm X 3.9 cm depth. 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 Continues with 65% granulation tissue. It is basically unchanged. Moderate serosanguinous drainage and no odor. 12/12/2019 L IT 12/23/2019 01/08/2020 Kjaal Huggins MD, Diplomate ABWMS, FACCWS, FAAPMR Clinical Project Coordinator Wound Care and Lymphedema [facility] [phone] This note was dictated using a voice recognition software. Any grammatical or context distortion areunintentional and inherent to the software. documented in this encounter Miscellaneous Notes Patient Instructions - RON - Patience Martinez RN - 01/09/2020 1:15 PM CDT Wound Care: Wound Pressure Treatment (NWPT) when supplies are available. Change NWPT 3 times / week. Irrigate wound with hibiclens wash and NS and clean surrounding skin with Normal Saline, or wound cleanser, or soap and water. ??Rinse with water or saline. ??Apply skin barrier to klever-wound tissue. ??Lightly pack endoform into deep areas of ulcer (may cut in pieces for better placement) ??Then gently place foam into wound bed.Cover with transparent drape and affix negative pressure pad.K.C.I. V.A.C. Settings: 125mmHg: Continuous.May adjust pressure from 110mmHg to 150 mmHg to accommodate comfort or wound drainage.If foam adheres to wound, may use a single layer, wide meshed, non-adherent dressing (e.g. Adaptic gauze, Aquaphor, ) in wound bed prior to foam placement. Back-Up Plan: ??When NWPT not available, place moist gauze in wound bed, cover with appropriate dressing to keep wound bed moist. ??Change 1-2 times daily until negative pressure can be reapplied. May use equivalent dressing(s) as substitute HHC. ?? Please check with patient to see if these supplies need to be order. ??Order accordingly. If you do not have a back up plan in place: If the negative pressure wound therapy malfunctions or unable to maintain seal: dressing must be removed and reapplied within 2 hours of the incident. If unable to reapply negative pressure wound dressing, place Normal Saline moistened gauze in wound bed andcover with appropriate dressing to keep wound bed moist. Change wet-to-dry dressing two times a day until healthcare staff can re- implement negative pressuretherapy. Change canister at least weekly. [facility] Contact Center can be reached at , 24 hours a day 7 days a week What is V.A.C.?? Therapy? V.A.C.?? Therapy is a medical coder system that promotes wound healing by delivering negative pressure (a vacuum) to the wound through a patented dressing and therapy unit creating an environment that promotes the wound healing process. This negative pressure helps draw wound edges together, remove wound fluids and infectious materials and promote granulation tissue formation (the connective tissue in healing wounds). Unlike gauze bandages that merely cover a wound, V.A.C.?? Therapy actively works to help the wound healing process. The V.A.C.?? Therapy System helps: ??? Promote wound healing ??? Provide a moist wound healing environment ??? Draw wound edges together ??? Remove fluid and infectious materials ??? Reduce wound odor ??? Reduce the need for daily dressing changes When should I call my clinician when on V.A.C.?? Therapy? Immediately report to your clinician if you have any of these symptoms: ??? Fever over 102? Diarrhea ??? Headache ??? Sore throat ??? Confusion ??? Sick to your stomach or throwing up ??? Dizziness or feel faint when you stand up ??? Redness around the wound ??? Skin itches or rash present ??? Wound is sore, red or swollen ??? Pus or bad smell from the wound ??? Area in or around wound feels very warm Vacuum-Assisted Closure of a Wound Vacuum-assisted closure (VAC) of a wound is a type of treatment to help wounds heal. It???s also known as negative pressure wound therapy. During the treatment, a device lowers air pressure on the wound. This can help the wound heal more quickly. Understanding the wound VAC system A wound VAC system has several parts. A foam or gauze dressing is put directly on the wound. The dressing is changed every 24 to 72 hours. An adhesive film covers and seals the dressing and wound. A drainage tube leads from under the adhesive film and connects to a portable vacuum pump. This pump removes air pressure over the wound. It may do this constantly. Or it may do it in cycles. During the treatment, you???ll need to carry the portable pump everywhere you go. Why wound VAC is used You might need this therapy for a recent traumatic wound. Or you may need it for a chronic wound. This is a wound that does not heal the way it should over time. This can happen with wounds in people who have diabetes. You may need a wound VAC if you???ve had a recent skin graft. And you may need a wound VAC for a large wound. Large wounds can take a longer time to heal. A wound vacuum system may help your wound heal more quickly by: ?? Draining extra fluid from the wound ?? Reducing swelling ?? Reducing bacteria in the wound ?? Keeping your wound moist and warm ?? Helping draw together wound edges ?? Increasing blood flow to your wound ?? Decreasing inflammation Wound VAC offers some other advantages over other types of wound care. It may decrease your overall discomfort. The dressings usually need to be changed less often. And they may be easier to keep in position. Risks of wound VAC Wound VAC has some rare risks, such as: ?? Bleeding (which may be severe) ?? Wound infection ?? An abnormal connection between the intestinal tract and the skin (enteric fistula) Proper training in dressing changes can help reduce the risk for these complications. Also, your doctor will carefully evaluate you to make sure [...] that may reopen because of movement Your doctor will discuss the risks that apply to you. Make sure to talk with him or her about all ofyour questions and concerns. Getting ready for wound VAC You likely won???t need to do much to get ready for wound VAC. In some cases, you may need to wait awhile before having this therapy. For example, your doctor may first need to treat an infection in your wound. or damaged tissue may also need to be removed from your wound. You or a caregiver may need training on how to use the wound VAC device. This is done if you will beable to have your wound vacuum therapy at home. In other cases, you may need to have your wound vacuum therapy in a health care facility. On the day of your procedure A health care provider will cover your wound with foam or gauze wound dressing. An adhesive film will be put over the dressing and wound. This [...] it may be done by a visiting health care provider. Your doctor may prescribe a pain medicine. This is to prevent or reduce pain during the dressing change. You will likely need to use the wound VAC system for several weeks or months. During this time, you???ll carry the portable pump everywhere you go. Nutrition for wound healing During this time, make sure you follow a healthy diet. This is needed so the wound can heal and to prevent infection. Your doctor can tell you more about what to include in your diet during this time. follow up with your doctor if you have a medical condition that led to your wound, such as diabetes.He or she can help you prevent future wounds. Follow-up care Your doctor will carefully keep track of your healing. Make sure to keep all follow-up appointments. When to call your health care provider Call your health care provider right away if you have any of these: ?? Fever of 100.4??F (38.0??C) or higher ?? Increased redness, swelling, or warmth around wound ?? Increased pain ?? Bright red blood or blood clots in tubing or the collection chamber of the vacuum documented in this encounter Plan of Treatment Upcoming Encounters Date Type Specialty Care Team Description 11/15/2022 Virtual Visit Pharm Haylie Gonzalez, [facility] [address] 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 Morbid obesity with BMI of 50.0-59.9, ad ult (H) documented in this encounter Additional Health Concerns Assessment Noted Time PHQ-9 Depression Total Score: 4 04/12/2019 7:03 AM CDT documented as of this encounter Care Teams Orthotic Fitter Relationship Specialty Start Date End Date Galdino Valdez MD PCP - General Family Practice 11/29/19 02/12/20 [address] [place], [place] [id number] Jaiden Holcomb PCP - General Internal Medicine 02/13/2010/03 MD Jayesh [address] [place] [id number] Chastity Montero MD Dermatology 09/23/14 [address] [place] [address] Johnnie Alcocer MD Surgeon General Surgery 03/23/[address] [place] [address] Danni Marcsu, CHANDLER Personal Advocate & 01/09/1901/17 Liaison (PAL) [place], Ea Complex 04/23/19 Svetlana Osman, Pharmacist Pharmacotherapy 04/23/19 [facility] [address] [place] [address] Haylie Cheung, Pharmacist Pharmacist 09/11/19 [facility] [address] [place] [address] Galdino Valdez MD Assigned PCP 11/10/19 05/23/20 [address] [place], [place] [id number] Opal, Assigned Sleep 05/08/20 03/27/21 Kendall Meehan MD Provider [address] [place], [place] [id number] Erlinda Barber MD Assigned Neuroscience 05/08/20 01/26/21 [address] [facility] [address] [place] [address] Jaiden Holcomb Assigned PCP 05/24/20 MD Jayesh [address] [place] [address] documented as of this encounter
--- OUTSIDE RECORDS SUMMARY | 2022-06-15 12:56 | XMS_ITS | Encounter Summary ---
:1945 Author Organization [place] Address [facility] [place] [address] Care Team Providers Name Role Phone Chastity Montero MD Unavailable [phone] Johnnie Alcocer MD Unavailable Danni Marcus RN Unavailable Unavailable Mtm, Ea Complex Unavailable Unavailable Svetlana Osman [facility] Unavailable [phone] Haylie Cheung [facility] Unavailable [phone] Galdino Valdez MD Unavailable Galdino Valdez MD Primary Care Provider Jaiden Holcomb MD Primary Care Provider [phone] Kendall Joseph MD Unavailable Erlinda Barber MD Unavailable Jaiden Holcomb MD Unavailable [phone] Reason for Visit Reason Comments Other left ischium Encounter Details Date Type Department Care Team Description 12/12/2019 Office Visit - [facility] Kajal Huggins Pre ssure injury of left ischium, stage 4 (H); [facility] MD Amari Leg swelling; [place] [address] Hypoalbuminemia; [address] Injury of left sciatic nerve, sequela; Street [address] [place], [place] Lymphedema of both lower ext remities; [place] [address] Left foot drop; [id number] Venous hypertension of lower extremity, bilateral; Morbid obesity with BMI of 50.0-59.9, ad ult (H); [phone] Necrotizing fas ciitis (H) (Fax) Social History Tobacco Use Types Packs/Day Years [...] Sign Reading Time Taken Comments Blood Pressure 138/90 12/12/2019 9:42 AM CDT left wris t Pulse 64 12/12/2019 9:42 AM CDT Temperature 36.7 ??C (98 ??F) 12/12/2019 9:42 AM CDT Respiratory Rate 20 12/12/2019 9:42 AM CDT Oxygen Saturation - - Inhaled Oxygen Concentration - - Weight 160.1 kg (353 lb) 12/12/2019 9:42 AM CDT Height 170.2 cm (5' 7) 12/12/2019 9:42 AM CDT Body Mass Index 55.29 12/12/2019 9:42 AM CDT documented in this encounter Progress Notes Molly Guido - 12/12/2019 9:30 AM CDT Pt is former patient for Dr Steward. He has ishium ulcer past two years. Pt denied any pain or discmofrt with the ulcer. Pt has home care service, and dressing has been changed daily. Noted heavy serous drainage With mild odor. Kajal Huggins MD - 12/12/2019 9:30 AM CDT Images from the original note were not included. Progress Notes by Kajal Huggins MD at 12/12/2019 9:30 AM Author: Kajal Huggins MD Service: -- Author Type: Physician Filed: 12/12/2019 3:39 PM Encounter Date: 12/12/2019 Status: Signed Corner Trimmer Operator: Kajal Huggins MD (Physician) Referred By: Doris Lia MD Date Of Service: 12/12/2019 Chief Complaint: Left IT pressure ulcer History of Present Illness: Charlette Brush presents to the [facility] as a new consult toevaluate a left IT buttock ulceration. In October 2017 she fell and was on the floor for long period of time. She developed necrotizing fasciitis. She required to incision and drainages and was sent to the TCU. She initially saw Patience Toussaint nurse practitioner on 05/15/2019. MRI of the pelvis was ordered which showed possible early osteomyelitis. She was debrided and wound was irrigated with Hibiclens followed by Aquacel Ag super absorbent pad. She had gel cushions and low air loss mattress repositioning every hour. She was instructed on nutritional supplementation of protein. VAC was tried with vitor paul keeping it in place. She was seeing [...] that she was not a good surgical candidate. She was felt to be at a high risk of dehiscence or failure. She last saw Patience Toussaint on 11/29/2019 by ED visit. She was referred on to me because of continued problems healing. Patience Toussaint got a number of nu tritional labs and inflammatory labs. Prealbumin was slightly decreased at 16.4. ESR was slightly elevated at 23 but much improved from a year ago. CRP was 0.7 and now normal. Vitamin A, C, D and zinc levels were pending. It is also noted that in the past she has been treated for lymphedema with full lymphedema therapy. She was also provided with a lymphedema pump and CircAid for her legs. She also has a history of termite helper anticoagulation with history of PE and paroxysmal a-fib. Past Medical History: Diagnosis Date ? Acute [...] Patient has appointment with Retina Specialist at [facility] on 01/11. 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 ? Morbid obesity (H) ? [...] Referral placed for Dr. Kajal Huggins at [facility] [place] per patient request. She has contact i [...] by mouth daily., Disp: , Rfl: ? boiskdugwzbx-rlrxkvvf-hpyqon (CEROVITE SENIOR) tablet, Take 1 tablet by [...] file Gets together: Not on file Attends mormonism service: Not on file Active member of [...] ? Thyroid disease Mother Review of Systems: Review of systems is otherwise negative, except as noted above. Full 12 point review of systems was completed. Radiology/Diagnostic Studies: I personally reviewed the following imaging results today and those on care everywhere, if indicated No results found. Laboratory Studies: I personally reviewed the following lab results today and those on care everywhere, if indicated Lab Results Component Value Date SEDRATE 23 (H) 12/11/2019 Lab Results Component Value Date CRP 0.7 12/11/2019 Lab Results Component Value Date CREATININE 0.62 06/04/2019 No results found for: HGBA1C Lab Results Component Value Date BUN 23 06/04/2019 Lab Results Component Value Date ALBUMIN 3.3 (L) 06/04/2019 No results found for: GAOFNOFI32NP No results found for: TSH Lab Results Component Value Date WBC 7.3 06/04/2019 HGB 13.8 06/04/2019 HCT 41.5 06/04/2019 MCV 92 06/04/2019 PLT 262 06/04/2019 Physical Exam: Vitals: 12/12/19 0942 BP: 138/90 Pulse: 64 Resp: 20 Temp: 98 ??F (36.7 ??C) BMI Weight See flow chart for circumferential measures. No flowsheet data found. VASC Wound 05/15/19 Buttocks (Active) Pre Size Length 5.5 11/29/19 1400 Pre Size Width 5 11/29/19 1400 Pre Size Depth 4 11/29/19 1400 Pre Total Sq cm 40 11/01/19 1400 General: 74 y.o. female in no apparent distress. Psych: Alert and oriented x 3. Cooperative. Affect normal. HEENT: Atraumatic, normocephalic Respiratory: Lungs are clear to auscultation throughout with full inspiration Cardiovascular: Normal S1, S2 without murmur, gallop or rub. No audible carotid bruits. Regular rhythm. Abdominal: Normal bowel sounds without any pain, guarding or rigidity. No inguinal lymphadenopathy palpated. Exam greatly compromised due to morbid obesity. Musculoskeletal: Normal range of motion in hips, knees bilaterally. Right ankle range of motion is normal. Left is to neutral. There is no active joint synovitis, erythema, swelling or joint laxity. Neurological: Sensation is decreased to pinprick and light touch in the left calf and left foot. This is greater on the lateral aspect of the left calf. Posterior calf is spared. Strength testing is normal in hip flexion, knee flexion, knee extension bilaterally. Right ankle dorsiflexion and great toe extension is normal with no left ankle dorsiflexion or great toe extension.. Deep tendon reflexes knee jerks and ankle jerks are not present. Vascular: Dorsalis pedis and posterior tibialis pulses are strong and equal bilaterally and reveal audible biphasic waves with a hand held doppler bilaterally. There are no significant telangietasias, medial ankle venous flares, venous varicosities and spider veins . Integumentary: Skin of the legs is uniformly warm and dry, with hyperkeratosis and keratoderma and with positive Stemmer's Sign . This is slight. 12/12/2019 L IT Impression: 1. Left ischial ulceration chronic 2. Hypoalbuminemia 3. Bilateral leg swelling with some slight acquired lymphatic dysfunction 4. 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 History of necrotizing fasciitis 6. History of osteomyelitis 7. Morbid obesity 8. Nutritional deficiencies Plan: 1. Type of swelling was reviewed in detail with the patient. Questions were answered and education was completed. We discussed the importance of decreasing biofilm formation and getting this back to a more acute wound state. We discussed the need to start getting this wound to fill in from the bottom up. Fortunately, during debridement I could not palpate bone. 2. After discussion of risk factors and [...] 25 sq cm into the muscle/fascia. Ulcer wasimproved afterwards and cleaner and polisher. Measures were as noted on the flow [...] wet or dry. ??Keep pressure off!!! 4. I checked her brace which is a left AFO rigid. This appears appropriate for her and appeared to be fitting well. 5. She uses a Flexitouch. It has been helping and she should continue to use it. We discussed the importance of exercise. We discussed how to exercise. I also reviewed with her the compression. She hassome new compression coming as it has already been ordered. 6. I have also asked for vitamin B12 and vitamin B6 levels as these can also be deficient and impairhealing if low. 7. She has lost over 100 pounds in the past. She is always been extremely heavy. In the future consideration of consultation to bariatric medicine may be of benefit. 8. Patient will follow up in weeks, or when needed. Down the line placement of a VAC may be in order. If any questions or concerns they are to contact the clinic. Thank you very much for referring Charlette Brush. If you have any questions please feel free to contact me at [phone]. Time spent with patient 60 minutes with greater than 50% time in consultation, education and coordination of care, excluding procedures. Kajal Huggins MD, FABWMS, FACCWS, FAAPMR Level Vial Inspector Wound Care and Lymphedema [facility] [phone] This note was dictated using a voice recognition software. Any grammatical or context distortion areunintentional and inherent to the software. documented in this encounter Miscellaneous Notes Patient Instructions - RON - Patience Martinez RN - 12/12/2019 9:30 AM CDT Wound care: R IT prontosan gel or hibiclens wash then NS followed by endoderm deep packing then alginate with silver to fill then foam with silicon border. ??May use barrier cream to protect klever wound skin. ??Change daily. May go to every other day if exudate controlled. ??Keep wound warm and moist, not wet or dry. ??Keep pressure off!!! ?? Labs to be drawn: Vitamin B12 and Vitamin B6 [place] [facility] Virtual Check-In Number [phone] When you arrive for your IN OFFICE visit. Please call this number from the parking lot. ??? The staff will then virtually check you in and meet you at the door to escort you to a room. ??? If you arrive early and a room is not yet ready for you staff may have you wait can call you back when they are ready. ??? Please remember to wear a mask into your appointment ??? No Visitors Allowed ??? If you are having any symptoms- cough, fever, rash, loss of taste and smell or shortness of breath we ask that you please call and reschedule your appointment. documented in this encounter Plan of Treatment Upcoming Encounters Date Type Specialty Care Team Description 11/15/2022 Virtual Visit Pharm Haylie Gonzalez, [facility] [address] [place] [address] [place] [address] (Wo winter) 11/15/2022 Virtual Visit IM/Peds Yane Barraza MD [address] [facility] [id number] (Lena max) 03/03/2023 Virtual Visit Neurology Erlinda Barber MD [address] [facility] 295 [place], [place] [id number] (Lena max) documented as of this encounter [...] documented as of this encounter Care Teams Ruby Developer Relationship Specialty Start Date End Date Galdino Valdez MD PCP - General Family Practice 11/29/19 02/12/20 [address] [place], [place] [id number] Jaiden Holcomb PCP - General Internal Medicine 02/13/2010/03 MD Jayesh [address] [facility] [address] [place] [id number] Chastity Montero MD Dermatology 09/23/14 MD [address] [facility] 98 [place], [place] [phone] Johnnie Alcocer MD Surgeon General Surgery 03/23/[address] [place], [place] [phone] Danni Marcus, CHANDLER Personal Advocate & 01/09/1901/17 Liaison (PAL) Mtkinsey, Ea Complex 04/23/19 Svetlana Osman, Pharmacist Pharmacotherapy 04/23/19 [facility] [address] [place], [place] [id number] Haylie Cheung, Pharmacist Pharmacist 09/11/19 [facility] [address] [place], [place] [id number] Galdino Valdez MD Assigned PCP 11/10/19 05/23/20 [address] [place], [place] [phone] Opal, Assigned Sleep 05/08/20 03/27/21 Kendall Meehan MD Provider [address] [place], [place] [address] Erlinda Barber MD Assigned Neuroscience 05/08/20 01/26/21 [address] [facility] 295 Provider [place], [place] [address] Jaiden Holcomb Assigned PCP 05/24/20 MD Jayesh 909 [place], [place] [address] documented as of this encounter
--- OUTSIDE RECORDS SUMMARY | 2022-06-15 12:56 | XMS_ITS | Encounter Summary ---
:1945 Author Organization [place] Address [address] [place] [address] Care Team Providers Name Role Phone Chastity Montero MD Unavailable [phone] Johnnie Alcocer MD Unavailable Danni Marcus RN Unavailable Unavailable Mtm, Ea Complex Unavailable Unavailable Svetlana Osman [facility] Unavailable [phone] Haylie Cheung [facility] Unavailable [phone] Galdino Valdez MD Unavailable Galdino Valdez MD Primary Care Provider Jaiden Holcomb MD Primary Care Provider [phone] Kendall Joseph MD Unavailable Erlinda Barber MD Unavailable Jaiden Holcomb MD Unavailable [phone] Encounter Details Date Type Department Care Team Description 01/10/2020 Records - [facility] CONVERSION Scan, Non-Provider [...] 05/03/2021 organizations such as zoroastrian groups, unions, fraSirionLabs or athletic groups, or school groups? How [...] Pharm Haylie Gonzalez, [facility] [address] [facility] [place] [place] [address] (Wo rk) 11/15/2022 Virtual [place] [address] [place] [address] [address] [place] [id number] (Wo rk) 03/03/2023 Virtual Visit Neurology Erlinda Barber MD [address] [facility] 295 [place], [place] [phone] (Wo rk) documented as of this encounter Visit Diagnoses Not on filedocumented in this encounter Additional Health Concerns Assessment Noted Time PHQ-9 Depression Total Score: 4 04/12/2019 7:03 AM CDT documented as of this encounter Care Teams Ski Tow Operator Relationship Specialty Start Date End Date Galdino Valdez MD PCP - General Family Practice 11/29/19 02/12/20 [address] [place] [place] [phone] Jaiden Holcomb PCP - General Internal Medicine 02/13/2010/03 MD Jayesh [address] [facility] [address] [place] [id number] Chastity Montero MD Dermatology 09/23/14 [address] [facility] 98 [place] [address] Johnnie Alcocer MD Surgeon General Surgery 03/23/[address] [place] [address] Danni Marcus, CHANDLER Personal Advocate & 01/09/1901/17 Liaison (PAL) Fernando, Ea Complex 04/23/19 Svetlana Osman, Pharmacist Pharmacotherapy 04/23/19 [facility] [address] [place] [address] Haylie Cheung, Pharmacist Pharmacist 09/11/19 [facility] [address] [place] [address] Galdino Valdez MD Assigned PCP 11/10/19 05/23/20 [address] [place], [place] [phone] Opal, Assigned Sleep 05/08/20 03/27/21 Kendall Meehan MD Provider [address] [place], [place] [phone] Erlinda Barber MD Assigned Neuroscience 05/08/20 01/26/21 [address] [facility] [address] [place] [address] Jaiden Holcomb Assigned PCP 05/24/20 MD Jayesh 909 [place] [address] documented as of this encounter
--- OUTSIDE RECORDS SUMMARY | 2022-06-15 12:56 | XMS_ITS | Encounter Summary ---
:1945 Author Organization [place] Address [address] [place] [address] Care Team Providers Name Role Phone Chastity Montero MD Unavailable [phone] Johnnie Alcocer MD Unavailable Danni Marcus RN Unavailable Unavailable Mtm, Ea Complex Unavailable Unavailable Svetlana Osman [facility] Unavailable [phone] Haylie Cheung [facility] Unavailable [phone] Galdino Valdez MD Unavailable Galdino Valdez MD Primary Care Provider Jaiden Holcomb MD Primary Care Provider Kendall Joseph MD Unavailable Erlinda Barber MD Unavailable Jaiedn Holcomb MD Unavailable [phone] Reason for Visit Reason Comments Other wellness screening Encounter Details Date Type Department Care Team Description 12/20/2019 Communication - [facility] Kajal Huggins Ot ([facility] MD Amari screening) [place] [id number] [place] [address] [place] [id number] Social History Tobacco Use Types Packs/Day Years [...] Notes Telephone Encounter - Historical Provider - 12/20/2019 6:02 PM CDT Wellness Screening Tool Symptom Screening: Do you have a: ?? Fever? no ?? Cough? no ?? Shortness of breath? no ? If yes, is this a change? no ?? Skin rash? no Within the past 14 days, have you been in contact with someone who: ?? Is currently being ruled out for COVID-19 (novel coronavirus)? no ?? Has tested positive for COVID-19? no ?? Has symptoms of a respiratory illness (fever, cough, shortness of breath)? no Have you recently traveled to an area with COVID-19 areas: no ?? Refer to the CDC Coronavirus webpage for COVID-19 areas: Within the past 3 weeks, have you been exposed to the following: ?? Pertussis? no ?? Chicken pox? no ?? Measles? no Patient's appointment status: Pt to come to clinic for visit Patient reminded that no visitors are allowed at this time due to COVID-19 concerns. If determined pt has symptoms and is still needed to be seen pt notified they must wear a mask upon entering the clinic. documented in this encounter Plan of Treatment Upcoming Encounters Date Type Specialty Care Team Description 11/15/2022 Virtual Visit Pharm Haylie Gonzalez, [facility] [address] [facility] [address] [place] [id number] (Wo rk) 11/15/2022 Virtual Visit IM/Peds Yane Barraza MD [address] [place] [address] [address] [place] [id number] (Wo rk) 03/03/2023 Virtual Visit Neurology Erlinda Barber MD [address] [place] [address] 295 [place], [place] [address] (Wo rk) documented as of this encounter Visit Diagnoses Not on filedocumented in this encounter Additional Health Concerns Assessment Noted Time PHQ-9 Depression Total Score: 4 04/12/2019 7:03 AM CDT documented as of this encounter Care Teams Roll Cleaner Relationship Specialty Start Date End Date Galdino Valdez MD PCP - General Family Practice 11/29/19 02/12/20 [address] [place], [place] [phone] Jaiden Holcomb PCP - General Internal Medicine 02/13/2010/03 MD Jayesh [address] [place] [address] [address] [place] [id number] Chastity Montero MD Dermatology 09/23/14 [address] [facility] 98 [place], [place] [address] Johnnie Alcocer MD Surgeon General Surgery 03/23/[address] [place], [place] [address] Danni Marcus, RN Personal Advocate & 01/09/1901/17 Liaison (PAL) Fernando, Ea Complex 04/23/19 Svetlana Osman, Pharmacist Pharmacotherapy 04/23/19 [facility] [address] [place], [place] [phone] Haylie Cheung, Pharmacist Pharmacist 09/11/19 [facility] [address] [place], [place] [phone] Galdino Valdez MD Assigned PCP 11/10/19 05/23/20 [address] [place], [place] [phone] Opal, Assigned Sleep 05/08/20 03/27/21 Kendall Meehan MD Provider [address] [place], [place] [phone] Erlinda Barber MD Assigned Neuroscience 05/08/20 01/26/21 [address] [facility] 295 [place] [address] Jaiden Holcomb Assigned PCP 05/24/20 MD Jayesh 909 [place] [address] documented as of this encounter
--- OUTSIDE RECORDS SUMMARY | 2022-06-15 12:56 | XMS_ITS | Encounter Summary ---
:1945 Author Organization [place] Address [address] [place] [address] Care Team Providers Name Role Phone Chastity Montero MD Unavailable [phone] Johnnie Alcocer MD Unavailable Danni Marcus RN Unavailable Unavailable Mtm, Ea Complex Unavailable Unavailable Svetlana Osman [facility] Unavailable [phone] Haylie Cheung [facility] Unavailable [phone] Galdino Valdez MD Unavailable Galdino Valdez MD Primary Care Provider Jaiden Holcomb MD Primary Care Provider Kendall Joseph MD Unavailable Erlinda Barber MD Unavailable Jaiden Holcomb MD Unavailable [phone] Encounter Details Date Type Department Care Team Description 12/23/2019 [facility] Patience Martinez, [facility] RN [address] [address] Social History Tobacco Use Types [...] Telephone Encounter - Patience Martinez RN - 12/23/2019 12:27 PM CDT Faxed wound care orders again to [facility] and spoke to nurse Juanita and reviewed wound care orders with her. She states they had been given the ok to use up Cindi dressing before starting endoform, but they will start using endoform now. She would like to continue using kerramax underneath the foam to help with the drainage. They will call with any questions. documented in this encounter Plan of Treatment Upcoming Encounters Date Type Specialty Care Team Description 11/15/2022 Virtual Visit Haylie Wakefield, [facility] [address] [facility] [place] [address] (Wo rk) 11/15/2022 Virtual Visit IM/PedYane Muir MD [address] [facility] [place] [address] (Wo rk) 03/03/2023 Virtual Visit Neurology Erlinda Barber MD [address] [facility] 295 [place] [address] (Wo rk) documented as of this encounter Visit Diagnoses Not on filedocumented in this encounter Additional Health Concerns Assessment Noted Time PHQ-9 Depression Total Score: 4 04/12/2019 7:03 AM CDT documented as of this encounter Care Teams Ambulatory Care Nurse Relationship Specialty Start Date End Date Galdino Valdez MD PCP - General Family Practice 11/29/19 02/12/20 [address] [place], [place] [phone] Jaiden Holcomb PCP - General Internal Medicine 02/13/2010/03 MD Jayesh [address] [facility] [address] [place] [id number] Chastity Montero MD Dermatology 09/23/14 [address] [facility] 98 [place], [place] [address] Johnnie Alcocer MD Surgeon General Surgery 03/23/17 [address] [facility] 300 [place] [address] Danni Marcus, CHANDLER Personal Advocate & 01/09/1901/17 Liaison (PAL) Fernando, Ea Complex 04/23/19 Svetlana Osman, Pharmacist Pharmacotherapy 04/23/19 [facility] [address] [place] [phone] Haylie Cheung, Pharmacist Pharmacist 09/11/19 [facility] [address] [place] [phone] Galdino Valdez MD Assigned PCP 11/10/19 05/23/20 [address] [place], [place] [phone] Opal, Assigned Sleep 05/08/20 03/27/21 Kendall Meehan MD Provider [address] [place], [place] [address] Erlinda Barber MD Assigned Neuroscience 05/08/20 01/26/21 [address] [facility] 295 [place] [address] Jaiden Holcomb Assigned PCP 05/24/20 MD Jayesh 909 [place] [address] documented as of this encounter
--- OUTSIDE RECORDS SUMMARY | 2022-06-15 12:56 | XMS_ITS | Encounter Summary ---
:1945 Author Organization [place] Address [address] [place] [address] Care Team Providers Name Role Phone Chastity Montero MD Unavailable [phone] Johnnie Alcocer MD Unavailable Danni Marcus RN Unavailable Unavailable Mtm, Ea Complex Unavailable Unavailable Svetlana Osman [facility] Unavailable [phone] Haylie Cheung [facility] Unavailable [phone] Galdino Valdez MD Unavailable Galdino Valdez MD Primary Care Provider Reason for Visit Reason Onset Date Comments Derm Problem 01/07/2020 lt toe Encounter Details Date Type Department Care Team Description 01/07/2020 [facility] Jaiden Holcomb Derm Problem (lt toe) Clinic Yarelis Mcconnell MD [address] [address] [place] [address] [phone] Social History Tobacco Use Types Packs/Day Years [...] or relatives? How often do you attend sikh or More than 4 times per year 05/03/2021 judaism services? Do you belong to any clubs or No 05/03/2021 organizations such as sikh groups, unions, [employer] or athletic groups, or school groups? [...] this encounter Miscellaneous Notes Telephone Encounter - Jaiden Holcomb MD - 01/07/2020 9:31 AM CDT Thanks. Let me know if she is able to upload a picture through her Mychart. Jaiden Holcomb MD Internal Medicine [facility] Care [place], [place] Telephone Encounter - Jolanta Reddy RN - 01/07/2020 7:56 AM CDT FYI: Patient left a voicemail last night stating that when her aid was washing her feet last morning, she noted a black spot with redness around it Lt foot closer to the toe on sole. That is the foot with nerve damage. She wears a brace between her shoe and her foot. The brace is possibly pressing on the foot and causing this. Patient does not feel it. The closest she can feel is by her heel, due to nerve damage. Has an appointment today to check the brace. Has an appointment with wound MD on this week. She will try sending a picture on my-chart. We will see images from [facility] wound clinic later this wee, too. Jolanta Reddy RN Message handled by Nurse Triage. documented in this encounter Plan of Treatment Upcoming Encounters Date Type Specialty Care Team Description 11/15/2022 Virtual Visit Pharm D Haylie Cheung, [facility] [address] [place] [address] (Wo rk) 11/15/2022 Virtual Visit IM/Peds Yane Barraza MD [address] [facility] [place] [address] (Wo rk) 03/03/2023 Virtual Visit Neurology Erlinda Barber MD 420 [facility] 295 [place] [address] (Wo rk) documented as of this encounter Visit Diagnoses Not on filedocumented in this encounter Additional Health Concerns Assessment Noted Time PHQ-9 Depression Total Score: 4 04/12/2019 7:03 AM CDT documented as of this encounter Care Teams Ehs Teacher Relationship Specialty Start Date End Date Galdino Valdez MD PCP - General Family Practice 11/29/19 02/12/20 [address] [place], [place] [phone] Chastity Montero MD Dermatology 09/23/[address] [place] [address] 98 [place], [place] 3[address] Johnnie Alcocer MD Surgeon General Surgery 03/23/[address] [place], [place] [address] Danni Marcus, CHANDLER Personal Advocate & 01/09/1901/17 Liaison (PAL) Fernando, Ea Complex 04/23/19 Svetlana Osman, Pharmacist Pharmacotherapy 04/23/19 [place] [id number] [place], [place] [id number] Haylie Cheung, Pharmacist Pharmacist 09/11/19 [place] [address] [place] [address] Galdino Valdez MD Assigned PCP 11/10/19 05/23/20 [address] [place] [address] documented as of this encounter
--- OUTSIDE RECORDS SUMMARY | 2022-06-15 12:56 | XMS_ITS | Encounter Summary ---
:1945 Author Organization [place] Address [address] [place] [address] Care Team Providers Name Role Phone Chastity Montero MD Unavailable [phone] Johnnie Alcocer MD Unavailable Danni Marcus RN Unavailable Unavailable Mtm, Ea Complex Unavailable Unavailable Svetlana Osman [facility] Unavailable [phone] Haylie Cheung [facility] Unavailable [phone] Galdino Valdez MD Unavailable Galdino Valdez MD Primary Care Provider Reason for Visit Reason Comments Medication Refill Encounter Details Date Type Department Care Team Description 01/07/2020 Refill [facility] Doris Agarwal MD Medication Refill Yarelis [address] [facility] [address] [place] [address] [facility] [address] [place] [address] [phone] Social History Tobacco Use Types Packs/Day Years [...] organizations such as latter day groups, unions, [employer] or athletic groups, or school groups? How [...] this encounter Miscellaneous Notes Telephone Encounter - Laquita Nagy RN - 01/07/2020 10:42 AM CDT Prescription approved per [facility] Refill Protocol. Telephone Encounter - Jennifer Fernández RN - 01/07/2020 10:41 AM CDT Sent to [facility] Jennifer Fernández RN, BSN documented in this encounter Plan of Treatment Upcoming Encounters Date Type Specialty Care Team Description 11/15/2022 Virtual Visit Pharm D Haylie Cheung, [facility] [address] [facility] [place] [address] (Wo rk) 11/15/2022 Virtual Visit [place] [address] [place] [address] [place] [address] (Lena max) 03/03/2023 Virtual Visit Neurology Erlinda Barber MD 420 [facility] 295 [place] [address] (Wo rk) documented as of this encounter Visit Diagnoses 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 documented in this encounter Additional Health Concerns Assessment Noted Time PHQ-9 Depression Total Score: 4 04/12/2019 7:03 AM CDT documented as of this encounter Care Teams Long Term Care Administrator Relationship Specialty Start Date End Date Galdino Valdez MD PCP - General Family Practice 11/29/19 02/12/20 [address] [place], [place] [phone] Chastity Montero MD Dermatology 09/23/14 420 [facility] 98 [place], [place] [address] Johnnie Alcocer MD Surgeon General Surgery 03/23/17 [address] [facility] 300 [place], [place] [address] Danni Marcus, CHANDLER Personal Advocate & 01/09/1901/17 Liaison (PAL) Fernando, Ea Complex 04/23/19 Svetlana Osman, Pharmacist Pharmacotherapy 04/23/19 [facility] [address] [place] [place], [place] [phone] Haylie Cheung, Pharmacist Pharmacist 09/11/19 [facility] [address] [place], [place] [id number] Galdino Valdez MD Assigned PCP 11/10/19 05/23/20 [address] [place], [place] [phone] documented as of this encounter
--- OUTSIDE RECORDS SUMMARY | 2022-06-15 12:56 | XMS_ITS | Encounter Summary ---
:1945 Author Organization [place] Address Pending sale to [facility]0 [place] [address] Care Team Providers Name Role Phone Chastity Montero MD Unavailable [phone] Johnnie Alcocer MD Unavailable Danni Marcus RN Unavailable Unavailable Mtm, Ea Complex Unavailable Unavailable Svetlana Osman [facility] Unavailable [phone] Haylie Cheung [facility] Unavailable [phone] Galdino Valdez MD Unavailable Galdino Valdez MD Primary Care Provider Jaiden Holcomb MD Primary Care Provider Kendall Joseph MD Unavailable Erlinda Barber MD Unavailable Jaiden Holcomb MD Unavailable Reason for Visit Reason Comments Other wellness screening tool Encounter Details Date Type Department Care Team Description 12/11/2019 Communication - [facility] Kajal Huggins Ot ([facility] MD Amari screening tool) [address] [place] [address] [address] [place] [phone] Social History Tobacco Use Types Packs/Day Years [...] Notes Telephone Encounter - Yanet Gutiérrez - 12/11/2019 11:53 AM CDT Wellness Screening Tool Symptom Screening: Do [...] Pharm D Haylie Cheung, [facility] 1440 [facility] [place] [id number] (Wo rk) 11/15/2022 Virtual Visit IM/Peds Yane Barraza MD [address] [place] [address] [place] [phone] (Wo rk) 03/03/2023 Virtual Visit Neurology Erlinda Barber MD [address] [place] [address] 295 [place], [place] [address]395 (Wo rk) documented as of this encounter Visit Diagnoses Not on filedocumented in this encounter Additional Health Concerns Assessment Noted Time PHQ-9 Depression Total Score: 4 04/12/2019 7:03 AM CDT documented as of this encounter Care Teams Supervisor Powdered Sugar Relationship Specialty Start Date End Date Galdino Valdez MD PCP - General Family Practice 11/29/19 02/12/20 [address] [place], [place] [phone] Jaiden Holcomb PCP - General Internal Medicine 02/13/2010/03 MD Jayesh [address] [place] [address] [place] [phone] Chastity Montero MD Dermatology 09/23/[address] [place] [address] 98 [place], [place] [address] Johnnie Alcocer MD Surgeon General Surgery 03/23/[address] [place], [place] [address] Danni Marcus, RN Personal Advocate & 01/09/1901/17 Liaison (PAL) Mtm, Ea Complex 04/23/19 Svetlana Osman, Pharmacist Pharmacotherapy 04/23/19 [facility] [address] [place], [place] [phone] Haylie Cheung, Pharmacist Pharmacist 09/11/19 [facility] [address] [place], [place] [phone] Galdino Valdez MD Assigned PCP 11/10/19 05/23/20 [address] [place], [place] [phone] Oapl, Assigned Sleep 05/08/20 03/27/21 Kendall Meehan MD Provider [address] [place] [address] Erlinda Barber MD Assigned Neuroscience 05/08/20 01/26/21 [address] [facility] 295 [place] [address] Jaiden Holcomb Assigned PCP 05/24/20 MD Jayesh 909 [place] [address] documented as of this encounter
--- OUTSIDE RECORDS SUMMARY | 2022-06-15 12:56 | XMS_ITS | Encounter Summary ---
:1945 Author Organization [place] Address [address] [place] [address]. [place] [address] Care Team Providers Name Role Phone Chastity Montero MD Unavailable [phone] Johnnie Alcocer MD Unavailable Danni Marcus RN Unavailable Unavailable Mtm, Ea Complex Unavailable Unavailable Svetlana Osman [facility] Unavailable [phone] Haylie Cheung [facility] Unavailable [phone] Galdino Valdez MD Unavailable Galdino Valdez MD Primary Care Provider Encounter Details Date Type Department Care Team Description 01/06/2020 Anticoagulation Therapy [facility] Galdino Valdez 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 embolism; Visit Clinic Radha Walton MD longterm current use of anticoagulant [address], [address] [place] [address] [phone] Social History Tobacco Use Types Packs/Day Years [...] 05/03/2021 organizations such as congregational groups, unions, [email or web address] or athletic groups, or school groups? How [...] encounter Progress Notes Sasha Rueda RN - 01/06/2020 1:41 PM CDT ANTICOAGULATION MANAGEMENT Patient Name: Charlette Brush Date: 01/06/2020 ASSESSMENT /SUBJECTIVE: Today's INR result of 2.9 is therapeutic. Goal INR of 2.0-3.0 ??? Warfarin dose taken: Warfarin taken as previously instructed ??? Diet: No new diet changes affecting INR ??? Medication changes/ interactions: No new medications/supplements affecting INR ??? Previous INR: Supratherapeutic ??? S/S of bleeding or thromboembolism: No ??? New injury or illness: No ??? Upcoming surgery, procedure or cardioversion: No ??? Additional findings: None PLAN: Spoke with Nurse Juanita regarding INR result and instructed: Warfarin Dosing Instructions: Continue your current warfarin dose 13 mg wed, 10 mg all other days Instructed patient to follow up no later than: 1 week Orders given to Homecare nurse/facility to recheck Education provided: Monitoring for bleeding signs and symptoms and Monitoring for clotting signs andsymptoms Nurse Juanita verbalizes understanding and agrees to warfarin dosing plan. Instructed to call the Anticoagulation Clinic for any changes, questions or concerns. (#[phone]) OBJECTIVE: INR Date Value Ref Range Status 01/06/2020 2.9 (A) 0.90 - 1.10 Final No question data found. 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 Anticoagulation Care Providers Provider Role Specialty Phone number Lcuero Stevenson MD [facility] Internal Medicine [phone] documented in this encounter Plan of Treatment Upcoming Encounters Date Type Specialty Care Team Description 11/15/2022 Virtual Visit Pharm D Haylie Cheung, [facility] 14[address] [facility] [place] [address] (Wo winter) 11/15/2022 Virtual Visit IM/Peds Yane Barraza MD 9[address] [facility] [place] [phone] (Lena max) 03/03/2023 Virtual Visit Neurology Erlinda Barber MD 420 [facility] 295 [place] [address] (Lena max) documented as of this encounter Procedures Procedure Name Priority Date/Time Associated Diagnosis Comme nts INR Routine 01/06/2020 Results for thi s procedure are in the resu lts section. documented in this encounter Results (ABNORMAL) INR (01/06/2020) P athologist Signature INR 2.9 (A) 0.90 - 1.10 EXTERNAL LAB Specimen (Source) Anatomical Location Collection Method / Collectio n Time Received Time / Laterality Volume Blood specimen 01/06/2020 (specimen) Resulting Agency Comment Home Care Patient Reported LAB - BLOOD ORDERABLES Performing Organization Address City/State/ZIP Code Phon e Number EXTERNAL LAB EXTERNAL LAB External Lab documented in this encounter Visit Diagnoses Diagnosis 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 embolism longterm current use of anticoagulant t herapy documented in this encounter Additional Health Concerns Assessment Noted Time PHQ-9 Depression Total Score: 4 04/12/2019 7:03 AM CDT documented as of this encounter Care Teams Geotechnical Operating Engineer Relationship Specialty Start Date End Date Galdino Valdez MD PCP - General Family Practice 11/29/19 02/12/20 [address] [place], [place] [phone] Chastity Montero MD Dermatology 09/23/[address] [place] [address] 98 [place], [place] [address] Johnnie Alcocer MD Surgeon General Surgery 03/23/[address] [place] [address] Danni Marcus, CHANDLER Personal Advocate & 01/09/1901/17 Liaison (PAL) Fernando, Ea Complex 04/23/19 Svetlana Osman, Pharmacist Pharmacotherapy 04/23/19 [facility] [address] [place] [phone] Haylie Cheung, Pharmacist Pharmacist 09/11/19 [facility] [address] [place] [phone] Galdino Valdez MD Assigned PCP 11/10/19 05/23/20 [address] [place], [place] [phone] documented as of this encounter
--- OUTSIDE RECORDS SUMMARY | 2022-06-15 12:56 | XMS_ITS | Encounter Summary ---
:1945 Author Organization [place] Address [address] [place] [address] Care Team Providers Name Role Phone Chastity Montero MD Unavailable [phone] Johnnie Alcocer MD Unavailable Danni Marcus RN Unavailable Unavailable Mtm, Ea Complex Unavailable Unavailable Svetlana Osman [facility] Unavailable [phone] Haylie Cheung [facility] Unavailable [phone] Galdino Valdez MD Unavailable Galdino Valdez MD Primary Care Provider Jaiden Holcomb MD Primary Care Provider [phone] Kendall Joseph MD Unavailable Erlinda Barber MD Unavailable Jaiden Holcomb MD Unavailable [phone] Encounter Details Date Type Department Care Team Description 01/10/2020 [facility] Caroline Carmona, [facility] RN [address] [address] Social History Tobacco Use Types [...] D Haylie Cheung, [facility] 1440 [facility] [place] [address] (Wo winter) 11/15/2022 Virtual Visit IM/Peds Yane Barraza MD 3305 [facility] [place] [address] (Wo rk) 03/03/2023 Virtual Visit Neurology Erlinda Barber MD 420 [facility] 295 [place] [address] (Wo rk) documented as of this encounter Visit Diagnoses Not on filedocumented in this encounter Additional Health Concerns Assessment Noted Time PHQ-9 Depression Total Score: 4 04/12/2019 7:03 AM CDT documented as of this encounter Care Teams Film Sorter Relationship Specialty Start Date End Date Galdino Valdez MD PCP - General Family Practice 11/29/19 02/12/20 [address] [place], [place] [phone] Jaiden Holcomb PCP - General Internal Medicine 02/13/2010/03 MD Jayesh [address] [facility] [address] [place], [place] [phone] Chastity Montero MD Dermatology 09/23/14 420 [facility] [place] [facility] 98 [place] [address] Johnnie Alcocer MD Surgeon General Surgery 03/23/17 [address] [facility] 300 [place], [place] [phone] Danni Marcus, CHANDLER Personal Advocate & 01/09/1901/17 Liaison (PAL) Fernando, Ea Complex 04/23/19 Svetlana Osman, Pharmacist Pharmacotherapy 04/23/19 [facility] [address] [place] [address] Haylie Cheung, Pharmacist Pharmacist 09/11/19 [facility] [address] [place] [address] Galdino Valdez MD Assigned PCP 11/10/19 05/23/20 [address] [place], [place] [phone] Opal, Assigned Sleep 05/08/20 03/27/21 Kendall Meehan MD Provider [address] [place] [address] Erlinda Barber MD Assigned Neuroscience 05/08/20 01/26/21 420 [facility] [place] [facility] 295 [place] [address] Jaiden Holcomb Assigned PCP 05/24/20 MD Jayesh 9 [place], [place] [address] documented as of this encounter
--- OUTSIDE RECORDS SUMMARY | 2022-06-15 12:56 | XMS_ITS | Encounter Summary ---
:1945 Author Organization [place] Address [address] [place] [address]. [place] [address] Care Team Providers Name Role Phone Chastity Montero MD Unavailable [phone] Johnnie Alcocer MD Unavailable Danni Marcus RN Unavailable Unavailable Mtm, Kyle Complex Unavailable Unavailable Svetlana Osman [facility] Unavailable [phone] Haylie Cheung [facility] Unavailable [phone] Galdino Valdez MD Unavailable Galdino Valdez MD Primary Care Provider Encounter Details Date Type Department Care Team Description 01/13/2020 Anticoagulation Therapy [facility] Galdino Valdez 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 embolism; Visit Clinic Radha Walton MD residential current use of anticoagulant [address], [address] [place] [address] [phone] Social History Tobacco Use Types Packs/Day Years [...] 05/03/2021 organizations such as religious groups, unions, fraTaptu or athletic groups, or school groups? How [...] encounter Progress Notes Sasha Rueda RN - 01/13/2020 5:26 PM CDT ANTICOAGULATION MANAGEMENT Patient Name: Charlette Brush Date: 01/13/2020 ASSESSMENT /SUBJECTIVE: Today's INR result of 3.9 is supratherapeutic. Goal INR of 2.0-3.0 ??? Warfarin dose taken: Warfarin taken as previously instructed ??? Diet: No new diet changes affecting INR ??? Medication changes/ interactions: No new medications/supplements affecting INR ??? Previous INR: Therapeutic ??? S/S of bleeding or thromboembolism: No ??? New injury or illness: Yes: Wound Debridement 01/08 ??? Upcoming surgery, procedure or cardioversion: No ??? Additional findings: 2 wound debridements within a couple weeks. Wound is weeping. PLAN: Spoke with Nurse Juanita regarding INR result and instructed: Warfarin Dosing Instructions: hold x 1, then resume normal dosing Instructed patient to follow up no later than: 3 days Orders given to Homecare nurse/facility to recheck Education provided: Monitoring for bleeding signs and symptoms and Monitoring for clotting signs andsymptoms Nurse Juanita verbalizes understanding and agrees to warfarin dosing plan. Instructed to call the Anticoagulation Clinic for any changes, questions or concerns. (#[phone]) OBJECTIVE: INR Date Value Ref Range Status 01/13/2020 3.9 (A) 0.90 - 1.10 Final No question data found. Anticoagulation Summary As of 01/13/2020 INR goal: 2.0-3.0 TTR: 79.2 % (1 y) INR used for dosin.9! 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 Anticoagulation Care Providers Provider Role Specialty Phone number Lucero Stevenson MD [facility] Internal Medicine [phone] documented in this encounter Plan of Treatment Upcoming Encounters Date Type Specialty Care Team Description 11/15/2022 Virtual Visit Pharm Haylie Gonzalez, [facility] 1440 [facility] [place] [address] (Lena max) 11/15/2022 Virtual Visit [place] [address] [place] [address] [place] [address] (Lena amx) 03/03/2023 Virtual Visit Neurology Erlinda Barber MD 420 [facility] 295 [place] [address] (Lena max) documented as of this encounter Procedures Procedure Name Priority Date/Time Associated Diagnosis Comme nts INR Routine 01/13/2020 Results for thi s procedure are in the resu lts section. 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 anticoagulant t herapy documented in this encounter Additional Health Concerns Assessment Noted Time PHQ-9 Depression Total Score: 4 04/12/2019 7:03 AM CDT documented as of this encounter Care Teams Funeral Service Apprentice Relationship Specialty Start Date End Date Galdino Valdez MD PCP - General Family Practice 11/29/19 02/12/20 [address] [place], [place] [phone] Chastity Montero MD Dermatology 09/23/14 420 [facility] 98 [place], [place] [address] Johnnie Alcocer MD Surgeon General Surgery 03/23/17 [address] [facility] 300 [place], [place] [address] Danni Marcus, CHANDLER Personal Advocate & 01/09/1901/17 Liaison (PAL) Fernando, Ea Complex 04/23/19 Svetlana Osman, Pharmacist Pharmacotherapy 04/23/19 [place] [address] [address] [place] [phone] Haylie Cheung, Pharmacist Pharmacist 09/11/19 [place] [address] [place] [address] Galdino Valdez MD Assigned PCP 11/10/19 05/23/20 [address] [place], [place] [phone] documented as of this encounter
--- OUTSIDE RECORDS SUMMARY | 2022-06-15 12:56 | XMS_ITS | Encounter Summary ---
:1945 Author Organization [place] Address [address] [place] [address] Care Team Providers Name Role Phone Chastity Montero MD Unavailable [phone] Johnnie Alcocer MD Unavailable Danni Marcus RN Unavailable Unavailable Mtm, Ea Complex Unavailable Unavailable Svetlana Osman [facility] Unavailable [phone] Haylie Cheung [facility] Unavailable [phone] Galdino Valdez MD Unavailable Galdino Valdez MD Primary Care Provider Jaiden Holcomb MD Primary Care Provider [phone] Kendall Joseph MD Unavailable Erlinda Barber MD Unavailable Jaiden Holcomb MD Unavailable [phone] Encounter Details Date Type Department Care Team Description 01/07/2020 [facility] MD [place] [id number] [facility] [address] [place] [address] [place], [place] [phone] (Wo rk) [address] [phone] Social History Tobacco Use Types Packs/Day Years [...] Haylie Cheung, [facility] [address] [facility] [place] [address] (Wo rk) 11/15/2022 Virtual [place] [address] [place] [address] [place] [id number] (Wo rk) 03/03/2023 Virtual Visit Neurology Erlinda Barber MD [address] [facility] 295 [place], [place] [address]385 (Wo rk) documented as of this encounter Visit Diagnoses Not on filedocumented in this encounter Additional Health Concerns Assessment Noted Time PHQ-9 Depression Total Score: 4 04/12/2019 7:03 AM CDT documented as of this encounter Care Teams Retort Pre Cooker Relationship Specialty Start Date End Date Galdino Valdez MD PCP - General Family Practice 11/29/19 02/12/20 [address] [place], [place] [phone] Jaiden Holcomb PCP - General Internal Medicine 02/13/2010/03 MD Jayesh [address] [facility] [address] [place], [place] [phone] Chastity Montero MD Dermatology 09/23/14 [place] [address] [facility] 98 [place], [place] [address] Johnnie Alcocer MD Surgeon General Surgery 03/23/17 [address] [facility] 300 [place], [place] [phone] Danni Marucs, CHANDLER Personal Advocate & 01/09/1901/17 Liaison (PAL) Mtkinsey, Ea Complex 04/23/19 Svetlana Osman, Pharmacist Pharmacotherapy 04/23/19 [facility] [address] [place], [place] [id number] Haylie Cheung, Pharmacist Pharmacist 09/11/19 [facility] [address] [place] [address] Galdino Valdez MD Assigned PCP 11/10/19 05/23/20 [address] [place], [place] [phone] Opal, Assigned Sleep 05/08/20 03/27/21 Kendall Meehan MD Provider [address] [address] [place], [place] [address] Erlinda Barber MD Assigned Neuroscience 05/08/20 01/26/21 [address] [facility] 295 Provider [place], [place] [address] Jaiden Holcomb Assigned PCP 05/24/20 MD Jayesh 909 [place], [place] [address] documented as of this encounter
--- OUTSIDE RECORDS SUMMARY | 2022-06-15 12:56 | XMS_ITS | Encounter Summary ---
:1945 Author Organization [place] Address [address] [place] [address] Care Team Providers Name Role Phone Chastity Montero MD Unavailable [phone] Johnnie Alcocer MD Unavailable Danni Marcus RN Unavailable Unavailable Mtkinsey, Kyle Complex Unavailable Unavailable Svetlana Osman [facility] Unavailable [phone] Haylie Cheung [facility] Unavailable [phone] Galdino Valdez MD Unavailable Galdino Valdez MD Primary Care Provider Encounter Details Date Type Department Care Team Description 12/30/2019 Anticoagulation [facility] Maxi Venkateshsunday pompa history of pulmonary embolism; Therapy Visit Clinic [facility] Sunday [facility] correction current use of anticoagulant [address] [place] [address] [facility] [address] [facility] B [phone] [place] [address] Social History Tobacco Use Types Packs/Day Years [...] 05/03/2021 organizations such as jain groups, unions, [employer] or athletic groups, or school groups? How [...] documented as of this encounter Progress Notes Gabbie German, [facility] - 12/30/2019 3:28 PM CDT ANTICOAGULATION MANAGEMENT Patient Name: Charlette Brush Date: 12/30/2019 ASSESSMENT /SUBJECTIVE: Today's INR result of 3.5 is supratherapeutic. Goal INR of 2.0-3.0 ??? Warfarin dose taken: Warfarin taken as previously instructed ??? Diet: No new diet changes affecting INR ??? Medication changes/ interactions: No new medications/supplements affecting INR ??? Previous INR: Therapeutic ??? S/S of bleeding or thromboembolism: No ??? New injury or illness: No ??? Upcoming surgery, procedure or cardioversion: No ??? Additional findings: stable would TX 27 months, no changes per RN PLAN: Spoke with Geo RN regarding INR result and instructed: Warfarin Dosing Instructions: 5mg today then continue your current warfarin dose of 13mg Monday, 10mg ROW Instructed patient to follow up no later than: 1 week Orders given to Homecare nurse/facility to recheck Education provided: verbal order to recheck INR sooner if any illness becomes evident by Monday CHANDLER Grant verbalizes understanding and agrees to warfarin dosing plan. Instructed to call the Anticoagulation Clinic for any changes, questions or concerns. (#[phone]) Gabbie German, PharmD BCACP Anticoagulation Clinical Pharmacist OBJECTIVE: INR Date Value Ref Range Status 12/30/2019 3.5 (A) 0.90 - 1.10 Final No question data found. Anticoagulation Summary As of 12/30/2019 INR goal: 2.0-3.0 TTR: 81.5 % (1 y) INR used for dosin.5! 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 Anticoagulation Care Providers Provider Role Specialty Phone number Lucero Stevenson MD [facility] Internal Medicine [phone] documented in this encounter Plan of Treatment Upcoming Encounters Date Type Specialty Care Team Description 11/15/2022 [facility] [address] [facility] [place] [address] (Lena max) 11/15/2022 Virtual [place] [address] [place] [address] [place] [address] (Lena max) 03/03/2023 Virtual Visit Neurology Erlinda Barber MD 420 [facility] 295 [place] [address] (Lena max) documented as of this encounter Procedures Procedure Name Priority Date/Time Associated Diagnosis Comme nts INR Routine 12/30/2019 Results for thi s procedure are in the resu lts section. 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 current use of anticoagulant t herapy documented in this encounter Additional Health Concerns Assessment Noted Time PHQ-9 Depression Total Score: 4 04/12/2019 7:03 AM CDT documented as of this encounter Care Teams Sericulturist Relationship Specialty Start Date End Date Galdino Valdez MD PCP - General Family Practice 11/29/19 02/12/20 [address] [place], [place] [phone] Chastity Montero MD Dermatology 09/23/14 [address] [place] 98 [place], [place] [address] Johnnie Alcocer MD Surgeon General Surgery 03/23/[address] [place], [place] [phone] Danni Marcus, CHANDLER Personal Advocate & 01/09/1901/17 Liaison (PAL) Fernando, Ea Complex 04/23/19 Svetlana Osman, Pharmacist Pharmacotherapy 04/23/19 [facility] [address] [place] [address] Haylie Cheung, Pharmacist Pharmacist 09/11/19 [facility] [address] [place] [phone] Galdino Valdez MD Assigned PCP 11/10/19 05/23/20 [address] [place] [address] documented as of this encounter
--- OUTSIDE RECORDS SUMMARY | 2022-06-15 12:56 | XMS_ITS | Encounter Summary ---
:1945 Author Organization [place] Address [address] [place] [address] Care Team Providers Name Role Phone Chastity Montero MD Unavailable [phone] Johnnie Alcocer MD Unavailable Danni Marcus RN Unavailable Unavailable Mtm, Ea Complex Unavailable Unavailable Svetlana Osman [facility] Unavailable [phone] Haylie Cheung [facility] Unavailable [phone] Galdino Valdez MD Unavailable Galdino Valdez MD Primary Care Provider Jaiden Holcomb MD Primary Care Provider [phone] Kendall Joseph MD Unavailable Erlinda Barber MD Unavailable Jaiden Holcomb MD Unavailable [phone] Encounter Details Date Type Department Care Team Description 12/11/2019 Ambulatory - [facility] Pressure i njury of left ischium, stage 4 (H); [facility] Morbid obes ity with BMI of 50.0-59.9, adult (H); Laboratory Hypoalbuminemia; [address] [facility] [address] [place] [address] Social History Tobacco Use Types [...] [facility] [address] [place] [address] (Wo rk) 11/15/2022 Virtual Visit [place] [address] [place] [address] [place] [id number] (Wo rk) 03/03/2023 Virtual Visit Neurology Erlinda Barber MD [address] [facility] 295 [place] [address] (Wo rk) documented as of this encounter Procedures Procedure Name Priority Date/Time Associated Comments Diagnosis 1,25 DIHYDROXYVITAMIN D Routine 12/11/2019 12:13 Results for this PM CDT procedure are i n the results section. VITAMIN C Routine 12/11/2019 12:13 Results for this PM CDT procedure are i n the results section. ZINC Routine 12/11/2019 12:13 Results for this PM CDT procedure are i n the results section. VITAMIN A Routine 12/11/2019 12:13 Results for this PM CDT procedure are i n the results section. PREALBUMIN Routine 12/11/2019 12:13 Results for this PM CDT procedure are i n the results section. ERYTHROCYTE Routine 12/11/2019 12:13 Results for this SEDIMENTATION RATE AUTO PM CDT proc edure are in the results section. CRP INFLAMMATION Routine 12/11/2019 12:13 Results for this PM CDT procedure are i n the results section. documented in this encounter Results CRP inflammation (12/11/2019 12:13 PM CDT) athologist Signature CRP 0.7 0.0 - 0.8 12/11/2019 [facility] mg/dL 8:49 PM CDT [facility] Specimen Anatomical Collection Method Collection Time Receive d Time (Source) Location / / Volume Laterality Blood specimen 12/11/2019 12:13 0 8:06 (specimen) PM CDT PM CDT Patience Toussaint NP LAB - BLOOD ORDERABLES Performing Organization Address City/State/ZIP [place] [id number] [place] [address] LABORATORY (ABNORMAL) Erythrocyte sedimentation rate auto (12/11/2019 12:13 PM CDT) Patholo gist Method Time Signature Erythrocyte 23 (H) 0 - 20 12/11/2019 [facility] Sedimentation Rate mm/hr 2:05 PM CDT Specimen Anatomical Collection Method Collection Time Receive d Time (Source) Location / / Volume Laterality Blood specimen 12/11/2019 12:13 0 (specimen) PM CDT 12:13 PM CDT Patience Toussaint NP LAB - BLOOD ORDERABLES Performing Organization Address City/State/ZIP Code Phon e Number [facility] [place] [address] [address] [facility] [address] [facility] [place] [address] Vitamin A (12/11/2019 12:13 PM CDT) Analysis Performed At Patho logist Time Signature Vitamin A 0.36 0.30 - 12/14/2019 [facility] 1.20 mg/L 9:53 AM CDT LABORATORIES Vitamin A 0.08 0.00 - 12/14/2019 [facility] (Retinyl 0.10 mg/L 9:53 AM CDT LABORATORIES Palmitate) Vitamin A Normal 12/14/2019 [facility] Interp 9:53 AM CDT LABORATORIES Comment: Test developed and characteristics deter mined by [employer]. See Compliance Statement B : [employer]/CS Performed by [employer], [address] [place] [id number] www.[employer], Chu Barry MD, Lab. Director Specimen Anatomical Collection Method Collection Time Receive d Time (Source) Location / / Volume Laterality Blood specimen 12/11/2019 12:13 0 9:57 (specimen) PM CDT PM CDT Patience Toussaint NP LAB - BLOOD ORDERABLES Performing Organization Address City/State/ZIP Code Phon e Number [employer] [facility] [employer] [place], [place] [phone] [place] [phone] [employer] [address] [address] Zinc (12/11/2019 12:13 PM CDT) athologist Signature Zinc, 62.7 60.0 - 12/13/2019 [facility] Serum/Plasma 120.0 11:01 AM CDT LABORATORIES ug/dL Comment: INTERPRETIVE INFORMATION: Zinc, [...] Test developed and characteristics deter mined by [employer]. See Compliance Statement B : [employer] Performed by [employer], [address] [place] [id number] www.[employer], Chu Barry MD, Lab. Director Specimen Anatomical Collection Method Collection Time Receive d Time (Source) Location / / Volume Laterality Blood specimen 12/11/2019 12:13 0 8:51 (specimen) PM CDT PM CDT Patience Toussaint NP LAB - BLOOD ORDERABLES Performing Organization Address City/[facility] Phon e Number [employer] [place], [place] [phone] [place] [phone] [employer] [address] [address] Vitamin C (12/11/2019 12:13 PM CDT) athologist [facility] Vitamin C 112 23 - 114 12/14/2019 [facility] umol/L 12:01 PM CDT Comment: INTERPRETIVE DATA: Vitamin C (Ascorbic A mary), Plasma Vitamin C concentrations lower than 11 u mol/L indicate deficiency. Concentrations between 11 and 23 umol/L are consistent with a moderate risk of deficiency due to inade quate tissue stores. Vitamin C concentration is reported as m icromoles per liter (umol/L). To convert concentration to mi lligrams per deciliter (mg/dL), multiply the result by 0.0176. Test developed and characteristics deter mined by [employer]. See Compliance Statement B : [employer] Performed by [employer], [address] [place] [id number] www.[employer], Chu Barry MD, Lab. Director Specimen Anatomical Collection Method Collection Time Receive d Time (Source) Location / / Volume Laterality Blood specimen 12/11/2019 12:13 0 (specimen) PM CDT 12:05 AM CDT Patience Toussaint NP LAB - BLOOD ORDERABLES Performing Organization Address City/[facility]/ZIP Code Phon e Number [facility] Laboratories [place], [place] [phone] [place] [phone] [facility] [address] [place] [address] 1,25 Dihydroxyvitamin D (12/11/2019 12:13 PM CDT) athologist Signature Vitamin D, 49.7 30.0 - 12/13/2019 [facility] Total 80.0 ng/mL 9:44 AM CDT [facility] (25-Hydroxy) [facility] Specimen Anatomical Collection Method Collection Time Receive d Time (Source) Location / / Volume Laterality Blood specimen 12/11/2019 12:13 0 8:07 (specimen) PM CDT PM CDT Narrative [facility] - 12/13/2019 9:44 AM CDT Deficiency <10.0 ng/mL Insufficiency 10.0-29.9 ng/mL Sufficiency 30.0-80.0 ng/mL Toxicity (possible) >100.0 ng/mL Patience Toussaint NP LAB - BLOOD ORDERABLES Performing Organization Address City/State/ZIP Code Phon e Number [facility] [place] [address] (ABNORMAL) Prealbumin (12/11/2019 12:13 PM CDT) athologist Signature Prealbumin 16.4 (L) 19.0 - 12/11/2019 [facility] 38.0 mg/dL 8:49 PM CDT [facility] Specimen Anatomical Collection Method Collection Time Receive d Time (Source) Location / / Volume Laterality Blood specimen 12/11/2019 12:13 0 8:06 (specimen) PM CDT PM CDT Patience Toussaint NP LAB - BLOOD ORDERABLES Performing Organization Address City/[facility]/ZIP Code Phon e Number [facility] [place] [address] [phone] [facility] [address] [address] [facility] documented in this encounter Visit Diagnoses Diagnosis Pressure injury of left ischium, stage 4 (H) Morbid obesity with BMI of 50.0-59.9, ad ult (H) Hypoalbuminemia Other disorders of plasma protein metabo lism Feeding difficulties Feeding difficulties and mismanagement documented in this encounter Additional Health Concerns Assessment Noted Time PHQ-9 Depression Total Score: 4 04/12/2019 7:03 AM CDT documented as of this encounter Care Teams Video Game Producer Relationship Specialty Start Date End Date Galdino Valdez MD PCP - General Family Practice 11/29/19 02/12/20 [address] [place], [place] [phone] Jaiden Holcomb PCP - General Internal Medicine 02/13/2010/03 MD Jayesh [address] [facility] [address] [place] [id number] Chastity Montero MD Dermatology 09/23/14 [address] [facility] 98 [place], [place] [address] Johnnie Alcocer MD Surgeon General Surgery 03/23/[address] [place], [place] [address] Danni Marcus, CHANDLER Personal Advocate & 01/09/1901/17 Liaison (PAL) Fernando, Ea Complex 04/23/19 Svetlana Osman, Pharmacist Pharmacotherapy 04/23/19 [facility] [address] [place], [place] [phone] Haylie Cheung, Pharmacist Pharmacist 09/11/19 [facility] [address] [place] [phone] Galdino Valdez MD Assigned PCP 11/10/19 05/23/20 [address] [place] [address] Opal, Assigned Sleep 05/08/20 03/27/21 Kendall Meehan MD Provider [address] [place], [place] [phone] Erlinda Barber MD Assigned Neuroscience 05/08/20 01/26/21 [address] [facility] 295 [place] [address] Jaiden Holcomb Assigned PCP 05/24/20 MD Jayesh 909 [place] [address] documented as of this encounter
--- OUTSIDE RECORDS SUMMARY | 2022-06-15 12:56 | XMS_ITS | Encounter Summary ---
:1945 Author Organization [place] Address [address] [place] [address] Care Team Providers Name Role Phone Chastity Montero MD Unavailable [phone] Johnnie Alcocer MD Unavailable Danni Marcus RN Unavailable Unavailable Mtm, Ea Complex Unavailable Unavailable Svetlana Osman [facility] Unavailable [phone] Haylie Cheung [facility] Unavailable [phone] Galdino Valdez MD Unavailable Galdino Valdez MD Primary Care Provider Jaiden Holcomb MD Primary Care Provider [phone] Kendall Joseph MD Unavailable Erlinda Barber MD Unavailable Jaiden Holcomb MD Unavailable [phone] Encounter Details Date Type Department Care Team Description 12/16/[facility] [address] [address] Social History Tobacco Use Types [...] this encounter Miscellaneous Notes Telephone Encounter - Sagrario Lara - 12/16/2019 1:02 PM CDT Called and updated patient on lab results. Telephone Encounter - Sagrario Lara - 12/16/2019 1:01 PM CDT ----- Message from Patience Toussaint NP sent at 12/16/2019 8:43 AM CDT ----- Can you let Charlette know that her protein level is still low but trending up; her inflammatory marker is still elevated but improving; all her other nutritional labs were normal LK documented in this encounter Plan of Treatment Upcoming Encounters Date Type Specialty Care Team Description 11/15/2022 Virtual Visit Haylie [place], [facility] [address] [facility] [address] [place], [place] [phone] (Wo rk) 11/15/2022 Virtual Visit [place] [address] [place] [address] [place] [address] (Wo rk) 03/03/2023 Virtual Visit Neurology Erlinda Barber MD 420 [facility] 295 [place] [address] (Lena rk) documented as of this encounter Visit Diagnoses Not on filedocumented in this encounter Additional Health Concerns Assessment Noted Time PHQ-9 Depression Total Score: 4 04/12/2019 7:03 AM CDT documented as of this encounter Care Teams [employer] Network Architect Relationship Specialty Start Date End Date Galdino Valdez MD PCP - General Family Practice 11/29/19 02/12/20 [address] [place] [address] Jaiden Holcomb PCP - General Internal Medicine 02/13/2010/03 MD Jayesh [address] [facility] [place] [address] Chastity Montero MD Dermatology 09/23/14 [address] [facility] 98 [place], [place] [phone] Johnnie Alcocer MD Surgeon General Surgery 03/23/[address] [place], [place] [address] Danni Marcus, CHANDLER Personal Advocate & 01/09/1901/17 Liaison (PAL) Fernando, Ea Complex 04/23/19 Svetlana Osman, Pharmacist Pharmacotherapy 04/23/19 [place] [address] [place] [address] Haylie Cheung, Pharmacist Pharmacist 09/11/19 [place] [address] [place] [address] Galdino Valdez MD Assigned PCP 11/10/19 05/23/20 [address] [place] [address] Opal, Assigned Sleep 05/08/20 03/27/21 Kendall Meehan MD Provider [address] [place] [address] Erlinda Barber MD Assigned Neuroscience 05/08/20 01/26/21 420 [facility] 295 [place] [address] Jaiden Holcomb Assigned PCP 05/24/20 MD Jayesh 909 [place] [address] documented as of this encounter
--- OUTSIDE RECORDS SUMMARY | 2022-06-15 12:56 | XMS_ITS | Encounter Summary ---
:1945 Author Organization [place] Address [address] [place] [address]. [place] [address] Care Team Providers Name Role Phone Chastity Montero MD Unavailable [phone] Johnnie Alcocer MD Unavailable Danni Marcus RN Unavailable Unavailable Mtm, Ea Complex Unavailable Unavailable Svetlana Osman [facility] Unavailable [phone] Haylie Cheung [facility] Unavailable [phone] Galdino Valdez MD Unavailable Galdino Valdez MD Primary Care Provider Encounter Details Date Type Department Care Team Description 01/08/[address] [facility] Galdino Valdez MD [address] [address] [place] [address] [phone] Social History Tobacco Use Types Packs/Day Years [...] Telephone Encounter - Jolanta Reddy RN - 01/09/2020 10:08 AM CDT Call to Juanita with a verbal ok for home care orders. Jolanta Reddy RN Message handled by Nurse Triage. Telephone Encounter - Columba Larkin - 01/08/2020 3:21 PM CDT General Call: Who is calling: Juanita, Home Care Reason for Call: Orders What are your questions or concerns: Juanita with home care calling requesting recertification orders.Please call Juanita at [phone]. Okay to leave a detailed message:No at Other phone number: [phone] Columba Larkin, Lining Strap Closer documented in this encounter Plan of Treatment Upcoming Encounters Date Type Specialty Care Team Description 11/15/2022 Virtual Visit Pharm D Haylie Cheung, [facility] 14[address] [facility] [place] [address] (Lena max) 11/15/2022 Virtual Visit MICHAEL/Yane Mathias MD [address] [facility] [place] [address] (Lena max) 03/03/2023 Virtual Visit Neurology Erlinda Barber MD [address] [facility] 295 [place] [address] (Wo rk) documented as of this encounter Visit Diagnoses Not on filedocumented in this encounter Additional Health Concerns Assessment Noted Time PHQ-9 Depression Total Score: 4 04/12/2019 7:03 AM CDT documented as of this encounter Care Teams Head Of English Relationship Specialty Start Date End Date Galdino Valdez MD PCP - General Family Practice 11/29/19 02/12/20 [address] [place], [place] [phone] Chastity Montero MD Dermatology 09/23/14 420 [facility] 98 [place], [place] [address] Johnnie Alcocer MD Surgeon General Surgery 03/23/[address] [place], [place] [address] Danni Marcus, CHANDLER Personal Advocate & 01/09/1901/17 Liaison (PAL) Fernando, Ea Complex 04/23/19 Svetlana Osman, Pharmacist Pharmacotherapy 04/23/19 [facility] [address] [place], [place] [id number] Haylie Cheung, Pharmacist Pharmacist 09/11/19 [facility] [address] [place] [address] Galdino Valdez MD Assigned PCP 11/10/19 05/23/20 [address] [place], [place] [phone] documented as of this encounter
--- OUTSIDE RECORDS SUMMARY | 2022-06-15 12:56 | XMS_ITS | Encounter Summary ---
:1945 Author Organization [place] Address [address] [place] [address] Care Team Providers Name Role Phone Chastity Montero MD Unavailable [phone] Johnnie Alcocer MD Unavailable Danni Marcus RN Unavailable Unavailable Mtm, Ea Complex Unavailable Unavailable Svetlana Osman [facility] Unavailable [phone] Haylie Cheung [facility] Unavailable [phone] Galdino Vadlez MD Unavailable Galdino Valdez MD Primary Care Provider Jaiden Holcomb MD Primary Care Provider [phone] Kendall Joseph MD Unavailable Erlinda Barber MD Unavailable Jaiden Holcomb MD Unavailable [phone] Encounter Details Date Type Department Care Team Description 12/11/2019 [facility] Provider, [facility] [address] [address] Social History Tobacco Use Types [...] [facility] 1440 [facility] [place] [address] (Wo winter) 11/15/2022 Virtual Visit IM/Peds Yane Barraza MD 0905 [facility] [place] [id number] (Wo rk) 03/03/2023 Virtual Visit Neurology Erlinda Barber MD 420 [facility] 295 [place] [address] (Wo rk) documented as of this encounter Visit Diagnoses Not on filedocumented in this encounter Additional Health Concerns Assessment Noted Time PHQ-9 Depression Total Score: 4 04/12/2019 7:03 AM CDT documented as of this encounter Care Teams Rolling Mill Operator Relationship Specialty Start Date End Date Galdino Valdez MD PCP - General Family Practice 11/29/19 02/12/20 [address] [place] [address] Jaiden Holcomb PCP - General Internal Medicine 02/13/2010/03 MD Jayesh [address] [facility] [address] [place], [place] [id number] Chastity Montero MD Dermatology 09/23/14 420 [facility] 98 [place], [place] [address] Johnnie Alcocer MD Surgeon General Surgery 03/23/17 [address] [facility] 300 [place] [address] Danni Marcus, CHANDLER Personal Advocate & 01/09/1901/17 Liaison (PAL) Fernando, Ea Complex 04/23/19 Svetlana Osman, Pharmacist Pharmacotherapy 04/23/19 [place] [address] [address] [place], [place] [id number] Haylie Cheung, Pharmacist Pharmacist 09/11/19 [place] [address] [place] [address] Galdino Valdez MD Assigned PCP 11/10/19 05/23/20 [address] [place], [place] [phone] Opal, Assigned Sleep 05/08/20 03/27/21 Kendall Meehan MD Provider [address] [place] [address] Erlinda Barber MD Assigned Neuroscience 05/08/20 01/26/21 420 [facility] [address] [place] [address] Jaiden Holcomb Assigned PCP 05/24/20 MD Jayesh 909 [place] [address] documented as of this encounter
--- OUTSIDE RECORDS SUMMARY | 2022-06-15 12:57 | XMS_ITS | Encounter Summary ---
:1945 Author Organization [place] Address [address] [place] [address] Care Team Providers Name Role Phone Chastity Montero MD Unavailable [phone] Johnnie Alcocer MD Unavailable Lucero Stevenson MD Unavailable Danni Marcus RN Unavailable Unavailable Mtkinsey, Ea Complex Unavailable Unavailable Svetlana Osman [facility] Unavailable [phone] Haylie Cheung [facility] Unavailable [phone] Doris Lai MD Primary Care Provider Reason for Visit Reason Onset Date Comments INR RESULTS 10/28/2019 Encounter Details Date Type Department Care Team Description 10/28/[address] [facility] Doris Agarwal MD INR RESULTS [place] 3307 [facility] 3305 [facility] [place] [address] [address] [place] [address] [phone] Social History Tobacco Use Types Packs/Day Years [...] 05/03/2021 organizations such as anabaptist groups, unions, fraBCB Medical or athletic groups, or school groups? How [...] this encounter Miscellaneous Notes Telephone Encounter - Marimar Bertrand RN - 10/28/2019 1:17 PM CDT ANTICOAGULATION MANAGEMENT Patient Name: Charlette Brush Date: 10/28/2019 ASSESSMENT /SUBJECTIVE: Today's INR result of 2.7 [...] ??? Additional findings: None PLAN: Spoke with Fadumo ( RN) regarding INR result and instructed: Warfarin Dosing Instructions: Continue your current warfarin dose of 13mg Wed; 10mg all other days Instructed patient to follow up no later than: 5 weeks Orders given to Homecare nurse/facility to recheck Education provided: Target INR goal and significance of current INR result Fadumo verbalizes understanding and agrees to warfarin dosing plan. Instructed to call the Anticoagulation Clinic for any changes, questions or concerns. 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 [Z79.01] Anticoagulation Episode Summary INR check location: Preferred lab: EXTERNAL LAB Send INR reminders to: ZHEN [facility] Comments: 3mg & 10mg tabs - devaughn dose / Interim Home Care qod - Kana [phone] / APPT CARD ONLY Anticoagulation Care Providers Provider Role Specialty Phone number Lucero Stevenson MD Internal Medicine [phone] documented in this encounter Plan of Treatment Upcoming Encounters Date Type Specialty Care Team Description 11/15/2022 Virtual Visit Pharm D Haylie Cheung K sunday Rojas, [facility] 1440 [facility] [place] [address] (Lena max) 11/15/2022 Virtual Visit IM/Yane Mathias MD 3305 [facility] [place] [phone] (Lena max) 03/03/2023 Virtual Visit Neurology Erlinda Barber MD 420 [facility] 295 [place] [address] (Wo rk) documented as of this encounter Procedures Procedure Name Priority Date/Time Associated Diagnosis Comme nts INR Routine 10/28/2019 Results for thi s procedure are in the resu lts section. INR Routine 10/01/2019 Results for thi s procedure are in the resu lts section. documented in this encounter Results (ABNORMAL) INR (10/28/2019) P athologist Signature INR 2.7 (A) 0.90 - 1.10 EXTERNAL LAB Specimen (Source) Anatomical Location Collection Method / Collectio n Time Received Time / Laterality Volume Blood specimen 10/28/2019 (specimen) Resulting Agency Comment Home care Patient Reported LAB - BLOOD ORDERABLES Performing Organization Address City/State/ZIP Code Phon e Number EXTERNAL LAB EXTERNAL LAB External Lab (ABNORMAL) INR (10/01/2019) P athologist Signature INR 2.4 (A) 0.90 - 1.10 EXTERNAL LAB Specimen (Source) Anatomical Location Collection Method / Collectio n Time Received Time / Laterality Volume Blood specimen 10/01/2019 (specimen) Resulting Agency Comment Home care Patient Reported LAB - BLOOD ORDERABLES Performing Organization Address City/State/ZIP Code Phon e Number EXTERNAL LAB EXTERNAL LAB External Lab documented in this encounter Visit Diagnoses Diagnosis 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 embolism manager 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 current use of anticoagulant t herapy documented in this encounter Additional Health Concerns Assessment Noted Time PHQ-9 Depression Total Score: 4 04/12/2019 7:03 AM CDT documented as of this encounter Care Teams Coding Advisor Relationship Specialty Start Date End Date Doris Lai MD PCP - General 05/24/19 11/28/19 [address] [facility] [address] [place] [phone] Chastity Montero MD Dermatology 09/23/14 420 [facility] 98 [place], [place] [address] Johnnie Alcocer MD Surgeon General Surgery 03/23/[address] [place], [place] [address] Lucero Stevenson Assigned PCP 06/17/18 11/09/19 MD TO[facility]O [facility] 8675 [place] [address] Danni Marcus, CHANDLER Personal Advocate & 01/09/1901/17 Liaison (PAL) Mtm, Ea Complex 04/23/19 Svetlana Osman, Pharmacist Pharmacotherapy 04/23/19 [facility] [address] [place], [place] [phone] Haylie Cheung, Pharmacist Pharmacist 09/11/19 [facility] [address] [place] [address] documented as of this encounter
--- OUTSIDE RECORDS SUMMARY | 2022-06-15 12:57 | XMS_ITS | Encounter Summary ---
:1945 Author Organization [place] Address [address] [place] [address] Care Team Providers Name Role Phone Chastity Montero MD Unavailable [phone] Johnnie Alcocer MD Unavailable Danni Marcus RN Unavailable Unavailable Mtm, Ea Complex Unavailable Unavailable Svetlana Osman [facility] Unavailable [phone] Haylie Cheung [facility] Unavailable [phone] Galdino Valdez MD Unavailable Galdino Valdez MD Primary Care Provider Jaiden Holcomb MD Primary Care Provider [phone] Kendall Joseph MD Unavailable Erlinda Barber MD Unavailable Jaiden Holcomb MD Unavailable [phone] Ruth John MD Unavailable Kajal Huggins MD Unavailable Patience Toussaint NP Unavailable Brook Sánchez MD Unavailable Yane Barraza MD Primary Care Provider Osmar Kidd MD Unavailable Erlinda Barber MD Unavailable Yane Barraza MD Primary Care Provider Lenore Alcala MD Unavailable Jonatan Haylie Rojas [facility] Unavailable [phone] Gaye Patrick RN Unavailable Unavailable Kenya Abernathy MIGEL LEAD SOFTWARE ENGINEER Unavailable [phone] Hayley German OD Unavailable [phone] Haylie Cheung [facility] Unavailable [phone] Reason for Visit Reason Comments Medication Refill Encounter Details Date Type Department Care Team Description 12/06/2019 Refill [facility] Galdino Valdez MD Medication Refill [place] [address] [facility] [address] [place] [id number] [place] [address] Social History Tobacco Use Types Packs/Day [...] Telephone Encounter - Amelia Richardson RN - 12/06/2019 12:08 PM CDT Prescription approved per [facility] Refill Protocol. Amelia Richardson RN on 12/06/2019 at 12:05 PM documented in this encounter Plan of Treatment Upcoming Encounters Date Type Specialty Care Team Description 11/15/2022 Virtual Visit Pharm Hayile Gonzalez, [facility] 14[address] [facility] [address] [place] [phone] (Wo rk) 11/15/2022 Virtual Visit IM/Peds Yane Barraza MD [address] [place] [address] [place] [phone] (Wo rk) 03/03/2023 Virtual Visit Neurology Erlinda Barber MD 420 [facility] 295 [place], [place] [address] (Wo rk) documented as of this encounter Visit Diagnoses Diagnosis Dermatitis - Primary Contact dermatitis and other eczema, due to unspecified cause documented in this encounter Additional Health Concerns Assessment Noted Time PHQ-9 Depression Total Score: 4 04/12/2019 7:03 AM CDT documented as of this encounter Care Teams Hand Folder Relationship Specialty Start Date End Date Galdino Valdez MD PCP - General Family Practice 11/29/19 02/12/20 [address] [place], [place] [phone] Jaiden Holcomb PCP - General Internal Medicine 02/13/2010/03 MD Jayesh [address] [place] [address] [place] [id number] Yane Barraza MD PCP - General Internal Medicine 10/04/21 12/07/[address] [place] [address] [place] [id number] Yane Barraza MD PCP - General Internal Medicine 12/08/[address] [place] [address] Chastity Montero MD Dermatology 09/23/14 420 [facility] 98 [place], [place] [phone] Johnnie Alcocer MD Surgeon General Surgery 03/23/17 [address] [facility] 300 [place], [place] [address] Danni Marcus, CHANDLER Personal Advocate & 01/09/1901/17 Liaison (PAL) Fernando, Ea Complex 04/23/19 Svetlana Osman, Pharmacist Pharmacotherapy 04/23/19 [facility] [address] [place] [address] Haylie Cheung, Pharmacist Pharmacist 09/11/19 [facility] [address] [place] [address] [place], [place] [phone] Galdino Valdez MD Assigned PCP 11/10/19 05/23/20 [address] [place], [place] [phone] Opal, Assigned Sleep 05/08/20 03/27/21 Kendall Meehan MD Provider [address] [place] [address] Erlinda Barber MD Assigned Neuroscience 05/08/20 01/26/21 420 [facility] 295 [place] [address] Jaiden Holcomb Assigned PCP 05/24/20 MD Jayesh 909 [place] [address] Ruth John MD Assigned Infectious 01/29/21 07/03/21 [facility] INFECTIOUS Disease Provider [facility] [address] [place], [place] [phone] Kajal Huggins MD Assigned Neuroscience 01/29/21 10/23/21 [address] [facility] [address] Provider [address] [place] [address] Patience Toussaint NP Assigned Surgical 01/29/21 02/11/22 2945 [facility] Provider [address] [place], [place] [phone] Brook Sánchez MD Assigned Infectious 07/04/21 909 [facility] SE Disease Provider [place], [place] [address] Osmar Kidd MD Assigned Sleep 09/26/[address] [place] [address] Erlinda Barber MD Assigned Neuroscience 10/24/21 [address] [facility] [address] [facility] [address] [place] [address] Lenore Alcala MD Assigned Heart and 12/18/21 01/21/[address] Vascular Provider [address] [place] [address] Haylie Cheung, Assigned MTM 01/08/22 [facility] Pharmacist 1440 [facility] [place] [id number] Gaye Patrick, RN Personal Advocate & 01/18/22 Liaison (PAL) Kenya Abernathy APRN Assigned Heart and 01/22/22 LEAD SOFTWARE ENGINEER Vascular Provider [address] [place] [address] Hayley German, Assigned Surgical 02/12/22 OD Provider 3305 [facility] [place] [address] Haylie Cheung, Assigned MTM 04/13/22 [facility] Pharmacist 1440 [facility] [place] [phone] documented as of this encounter
--- OUTSIDE RECORDS SUMMARY | 2022-06-15 12:57 | XMS_ITS | Encounter Summary ---
:1945 Author Organization [place] Address [address] [place] [address] Care Team Providers Name Role Phone Chastity Montero MD Unavailable [phone] Johnnie Alcocer MD Unavailable Lucero Stevenson MD Unavailable [phone] Danni Marcus RN Unavailable Unavailable Mtm, Ea Complex Unavailable Unavailable Svetlana Osman [facility] Unavailable [phone] Haylie Cheung [facility] Unavailable [phone] Doris Lai MD Primary Care Provider Reason for Visit Reason Comments Sleep Problem PHONE CALL Encounter Details Date Type Department Care Team Description 11/04/2019 Documentation Only [facility] Hoda Marsh Sle ep Problem (PHONE Sleep Center CALL) [address] [address] Social History Tobacco Use Types Packs/Day [...] documented as of this encounter Progress Notes Hoda Marsh - 11/04/2019 1:09 PM CDT 11/04/2019- JL - SPOKE WITH MARZENA AND SHE WANTS TO WAIT TO GET REPLACEMNT CPAP WHEN [facility] STRTAS TO SEE PATIENTS AGAIN. I WILL CALL HER TO SCHEDULE REPLACEMENT SETUP WHEN [facility] STARTS TO SEE PATIENTS AGAIN AFTER COVID-19 SHUTDOWN. documented in this encounter Plan of Treatment Upcoming Encounters Date Type Specialty Care Team Description 11/15/2022 Virtual Visit Pharm Haylie Gonzalez, [facility] 1440 [facility] [place] [phone] (Wo winter) 11/15/2022 Virtual Visit IM/Yane Mathias MD [address] [place] [address] [place] [address] (Wo winter) 03/03/2023 Virtual Visit Neurology Erlinda Barber MD 420 [facility] 295 [place] [address] (Wo winter) documented as of this encounter Visit Diagnoses Not on filedocumented in this encounter Additional Health Concerns Assessment Noted Time PHQ-9 Depression Total Score: 4 04/12/2019 7:03 AM CDT documented as of this encounter Care Teams Cloud Engagement Partner Relationship Specialty Start Date End Date Doris Lai MD PCP - General 05/24/19 11/28/[address] [place] [address] [place] [id number] Chastity Montero MD Dermatology 09/23/14 [address] [facility] 98 [place], [place] [phone] Johnnie Alcocer MD Surgeon General Surgery 03/23/[address] [place], [place] [phone] Lucero Stevenson Assigned PCP 06/17/18 11/09/19 MD Annetta [facility] 8675 [place] [address] Danni Marcus, CHANDLER Personal Advocate & 01/09/1901/17 Liaison (PAL) Mtkinsey, Ea Complex 04/23/19 Svet[place]ana Osman, Pharmacist Pharmacotherapy 04/23/19 [facility] [address] [place] [address] Haylie Cheung, Pharmacist Pharmacist 09/11/19 [facility] [address] [place] [address] documented as of this encounter
--- OUTSIDE RECORDS SUMMARY | 2022-06-15 12:57 | XMS_ITS | Encounter Summary ---
:1945 Author Organization [place] Address [address] [place] [address] Care Team Providers Name Role Phone Chastity Montero MD Unavailable [phone] Johnnie Alcocer MD Unavailable Lucero Stevenson MD Unavailable Danni Marcus RN Unavailable Unavailable Mtm, Ea Complex Unavailable Unavailable Svetlana Osman [facility] Unavailable [phone] [facility] Unavailable [phone] Galdino Valdez MD Unavailable Galdino Valdez MD Primary Care Provider Jaiden Holcomb MD Primary Care Provider [phone] Kendall Joseph MD Unavailable Erlinda Barber MD Unavailable Jaiden Holcomb MD Unavailable [phone] Doris Lai MD Primary Care Provider Reason for Visit Reason Comments Other wellness screening tool Encounter Details Date Type Department Care Team Description 10/29/2019 [facility] Patience Toussaint, VIANEY Other ([facility] Vascular [address] screening tool) [place] [phone] [facility] [address] [address] [place] [phone] Social History Tobacco Use Types Packs/Day Years [...] this encounter Miscellaneous Notes Telephone Encounter - Yaent Gutiérrez - 10/29/2019 11:48 AM CDT Wellness Screening Tool Symptom Screening: [...] COVID-19 areas: no ?? Refer to the [facility] Coronavirus webpage for COVID-19 areas: Within the past 3 weeks, have you been exposed to the following: ?? Pertussis? no ?? Chicken pox? no ?? Measles? no Patient's appointment status: VIDEO VISIT Patient reminded that no visitors are allowed at this time due to COVID-19 concerns. If determined pt has symptoms and is still needed to be seen pt notified they must wear a mask upon entering the clinic. documented in this encounter Plan of Treatment Upcoming Encounters Date Type Specialty Care Team Description 11/15/2022 Virtual Visit Pharm Haylie Gonzalez, [facility] [address] [place] [address] [address] [place] [phone] (Wo rk) 11/15/2022 Virtual Visit IM/Peds Yane Barraza MD [address] [place] [address] [place] [phone] (Wo rk) 03/03/2023 Virtual Visit Neurology Erlinda Barber MD 420 [facility] 295 [place], [place] [address] (Wo rk) documented as of this encounter Visit Diagnoses Not on filedocumented in this encounter Additional Health Concerns Assessment Noted Time PHQ-9 Depression Total Score: 4 04/12/2019 7:03 AM CDT documented as of this encounter Care Teams Machine Fancy Stitcher Relationship Specialty Start Date End Date Galdino Valdez MD PCP - General Family Practice 11/29/19 02/12/20 [address] [place] [address] Jaiden Holcomb PCP - General Internal Medicine 02/13/2010/03 MD Jayesh [address] [place] [address] [place] [id number] Doris Lai MD PCP - General 05/24/19 11/28/19 [address] [facility] [address] [place], [place] [phone] Chastity Montero MD Dermatology 09/23/14 [address] [place] [address] [facility] [address] [place], [place] [address] Johnnie Alcocer MD Surgeon General Surgery 03/23/[address] [place], [place] [phone] Lucero Stevenson, Assigned PCP 06/17/18 MD TOÑO [place]OPEZ 8675 [place] [address] Danni Marcus, CHANDLER Personal Advocate & 01/09/1901/17 Liaison (PAL) Fernando, Ea Complex 04/23/19 Svetlana Osman, Pharmacist Pharmacotherapy 04/23/[address] [facility] [address] [place], [place] [phone] Haylie Cheung, Pharmacist Pharmacist 09/11/[address] [facility] [address] [place] [address] Galdino Valdez MD Assigned PCP 11/10/19 05/23/20 [address] [place] [address] Opal, Assigned Sleep 05/08/20 03/27/21 Kendall Meehan MD Provider [address] [place] [address] Erlinda Barber MD Assigned Neuroscience 05/08/20 01/26/21 [address] [place] [address] [facility] [address] [place] [address] Jaiden Holcomb Assigned PCP 05/24/20 MD Jayesh 9 [place], [place] [address] documented as of this encounter
--- OUTSIDE RECORDS SUMMARY | 2022-06-15 12:57 | XMS_ITS | Encounter Summary ---
:1945 Author Organization [facility] Address [address] [place] [address] Care Team Providers Name Role Phone Chastity Montero MD Unavailable [phone] Johnnie Alcocer MD Unavailable Lucero Stevenson MD Unavailable Danni Marcus RN Unavailable Unavailable Mtm, Ea Complex Unavailable Unavailable Svetlana Osman [facility] Unavailable [phone] Haylie Cheung [facility] Unavailable [phone] Galdino Valdez MD Unavailable Galdino Valdez MD Primary Care Provider Jaiden Holcomb MD Primary Care Provider [phone] Kendall Joseph MD Unavailable Erlinda Barber MD Unavailable Jaiden Holcomb MD Unavailable [phone] Doris Lai MD Primary Care Provider Reason for Visit Reason Comments Other wellness screenig tool Encounter Details Date Type Department Care Team Description 10/31/2019 [facility] Patience Toussaint, VIANEY Other ([facility] [address] screen t ool) [place] [id number] [place] [phone] Social History Tobacco Use Types Packs/Day Years [...] this encounter Miscellaneous Notes Telephone Encounter - Marla Yanet Fitzpatrick - 10/31/2019 10:08 AM CDT Wellness Screening Tool Symptom Screening: [...] COVID-19 areas: no ?? Refer to the [facility] Coronavirus webpage for COVID-19 areas: Within the past 3 weeks, have you been exposed to the following: ?? Pertussis? no ?? Chicken pox? no ?? Measles? no Patient's appointment status: video visit Patient reminded that no visitors are allowed at this time due to COVID-19 concerns. If determined pt has symptoms and is still needed to be seen pt notified they must wear a mask upon entering the clinic. documented in this encounter Plan of Treatment Upcoming Encounters Date Type Specialty Care Team Description 11/15/2022 Virtual Visit Pharm Haylie Gonzalez, [facility] [address] [place] [address] [place] [id number] (Wo rk) 11/15/2022 Virtual Visit IM/Peds Yane Barraza MD [address] [place] [address] [place] [id number] (Wo rk) 03/03/2023 Virtual Visit Neurology Erlinda Barber MD [address] [facility] 295 [place], [place] [phone] (Wo rk) documented as of this encounter Visit Diagnoses Not on filedocumented in this encounter Additional Health Concerns Assessment Noted Time PHQ-9 Depression Total Score: 4 04/12/2019 7:03 AM CDT documented as of this encounter Care Teams Rn Invasive Relationship Specialty Start Date End Date Galdino Valdez MD PCP - General Family Practice 11/29/19 02/12/20 [address] [place], [place] [phone] Jaiden Holcomb PCP - General Internal Medicine 02/13/2010/03 MD Jayesh [address] [place] [address] [place] [id number] Doris Lai MD PCP - General 05/24/19 11/28/19 [address] [facility] [place] [address] Chastity Montero MD Dermatology 09/23/14 MD [address] [facility] 98 [place], [place] [address] Johnnie Alcocer MD Surgeon General Surgery 03/23/[address] [place] [address] Lucero Stevenson, Assigned PCP 06/17/18 MD TOÑO LOPEZ [address] [place] [address] Danni Marcus, CHANDLER Personal Advocate & 01/09/1901/17 Liaison (PAL) Fernando, Ea Complex 04/23/19 Svetlana Osman, Pharmacist Pharmacotherapy 04/23/19 [facility] [address] [place] [address] Haylie Cheung, Pharmacist Pharmacist 09/11/19 [facility] 14[address] [facility] [place] [address] Galdino Valdez MD Assigned PCP 11/10/19 05/23/20 [address] [place] [address] Opal, Assigned Sleep 05/08/20 03/27/21 Kendall Meehan MD Provider [address] [place] [address] Erlinda Barber MD Assigned Neuroscience 05/08/20 01/26/21 420 [facility] [address] [place] [address] Jaiden Holcomb Assigned PCP 05/24/20 MD Jayesh 909 [place], [place] [address] documented as of this encounter
--- OUTSIDE RECORDS SUMMARY | 2022-06-15 12:57 | XMS_ITS | Encounter Summary ---
:1945 Author Organization [facility] Address [address] [place] [address] Care Team Providers Name Role Phone Chastity Montero MD Unavailable [phone] Johnnie Alcocer MD Unavailable Danni Marcus RN Unavailable Unavailable Mtm, Ea Complex Unavailable Unavailable Svetlana Osman [facility] Unavailable [phone] Haylie Cheung [facility] Unavailable [phone] Galdino Valdez MD Unavailable Doris Lai MD Primary Care Provider Reason for Visit Reason Onset Date Comments Home Care/Hospice 11/12/2019 orders Encounter Details Date Type Department Care Team Description 11/12/2019 [facility] Jaiden Holcomb Home Care/Hospice Clinic Yarelis Mcconnell MD (orders) [address] [address] [place] [address] [phone] Social History Tobacco Use Types Packs/Day Years [...] 05/03/2021 organizations such as pentecostal groups, unions, fraEmbibe or athletic groups, or school groups? How [...] Telephone Encounter - Danni Marcus, RN - 11/12/2019 3:20 PM CDT Patient is establishing care with [facility]. RNJuanita, calling to request orders for Physical therapy Orders for Physical therapy to evaluate and treat for Lymphedema therapy. Patient has old wraps from 2017 and she doesn't feel these are effective due to their age. A home health aide helps her apply these daily. Verbal order given per protocol. Physical therapist will call clinic after he does the evaluation. Ashli Marcus RN documented in this encounter Plan of Treatment Upcoming Encounters Date Type Specialty Care Team Description 11/15/2022 Virtual Visit Pharm D Haylie Cheung, [facility] [address] [facility] [place] [address] (Lena max) 11/15/2022 Virtual Visit IM/Peds Yane Barraza MD 3305 [facility] [place] [address] (Lena max) 03/03/2023 Virtual Visit Neurology Erlinda Barber MD 420 [facility] 295 [place], [place] [address] (Lena max) documented as of this encounter Visit Diagnoses Not on filedocumented in this encounter Additional Health Concerns Assessment Noted Time PHQ-9 Depression Total Score: 4 04/12/2019 7:03 AM CDT documented as of this encounter Care Teams Kitchen Helper Relationship Specialty Start Date End Date Doris Lai MD PCP - General 05/24/19 11/28/19 [address] [facility] [address] [place], [place] [id number] Chastity Montero MD Dermatology 09/23/14 420 [facility] 98 [place], [place] [address] Johnnie Alcocer MD Surgeon General Surgery 03/23/17 [address] [facility] 300 [place], [place] [address] Danni Marcus, CHANDLER Personal Advocate & 01/09/1901/17 Liaison (PAL) Fernando, Ea Complex 04/23/19 Svetlana Osman, Pharmacist Pharmacotherapy 04/23/19 [facility] [address] [place] [phone] Haylie Cheung, Pharmacist Pharmacist 09/11/19 [facility] [address] [place] [phone] Galdino Valdez MD Assigned PCP 11/10/19 05/23/20 [address] [place], [place] [phone] documented as of this encounter
--- OUTSIDE RECORDS SUMMARY | 2022-06-15 12:57 | XMS_ITS | Encounter Summary ---
:1945 Author Organization [facility] Address [address] [place] [address] Care Team Providers Name Role Phone Chastity Montero MD Unavailable [phone] Johnnie Alcocer MD Unavailable Danni Marcus RN Unavailable Unavailable Mtm, Ea Complex Unavailable Unavailable Svetlana Osman [facility] Unavailable [phone] Haylie Cheung [facility] Unavailable [phone] Galdino Valdez MD Unavailable Galdino Valdez MD Primary Care Provider Encounter Details Date Type Department Care Team Description 12/06/2019 Telephone [facility] Wilbur Holcomb MD [address] [address] [address] [place] [address] [phone] Social History Tobacco Use Types Packs/Day Years [...] Telephone Encounter - Jolanta Reddy RN - 12/06/2019 10:44 AM CDT Call to Manny. A verbal ok was given. Will see patient in 2 weeks as the compression garments were just ordered. Jolanta Reddy RN Message handled by Nurse Triage. Telephone Encounter - Yanet Vargas - 12/06/2019 10:32 AM CDT Order/Referral Request: Who is requesting: Manny King - physical therapy Orders being requested: ordered compression garments, requesting push remaining 2 visits 2 weeks outto allow shipping time Reason service is needed/diagnosis: n/a When are orders needed by: khadra Has this been discussed with Provider: No Does patient have a preference on a Group/Provider/Facility? n/a Does patient have an appointment scheduled: No Where to send Orders: N/A verbal ok Okay to leave detailed message? Yes at Other phone number: [phone] Routing documented in this encounter Plan of Treatment Upcoming Encounters Date Type Specialty Care Team Description 11/15/2022 Virtual Visit Haylie Wakefield, [facility] [address] [facility] [address] [place], [place] [phone] (Wo rk) 11/15/2022 Virtual Visit IM/Peds Yane Barraza MD [address] [facility] [address] [facility] [address] (Wo rk) 03/03/2023 Virtual Visit Neurology Erlinda Barber MD 420 [facility] 295 [place] [address] (Wo rk) documented as of this encounter Visit Diagnoses Not on filedocumented in this encounter Additional Health Concerns Assessment Noted Time PHQ-9 Depression Total Score: 4 04/12/2019 7:03 AM CDT documented as of this encounter Care Teams Security Systems Sales Representative Relationship Specialty Start Date End Date Galdino Valdez MD PCP - General Family Practice 11/29/19 02/12/20 [address] [place], [place] [phone] Chastity Montero MD Dermatology 09/23/14 420 [facility] 98 [place], [place] [address] Johnnie Alcocer MD Surgeon General Surgery 03/23/17 [address] [facility] 300 [place], [place] [phone] Danni Marcus, CHANDLER Personal Advocate & 01/09/1901/17 Liaison (PAL) Fernando, Ea Complex 04/23/19 Svetlana Osman, Pharmacist Pharmacotherapy 04/23/19 [facility] [address] [place], [place] [phone] Haylie Cheung, Pharmacist Pharmacist 09/11/19 [facility] [address] [place] [address] Galdino Valdez MD Assigned PCP 11/10/19 05/23/20 [address] [place], [place] [phone] documented as of this encounter
--- OUTSIDE RECORDS SUMMARY | 2022-06-15 12:57 | XMS_ITS | Encounter Summary ---
:1945 Author Organization [facility] Address [address] [place] [address] Care Team Providers Name Role Phone Chastity Montero MD Unavailable [phone] Johnnie Alcocer MD Unavailable Lucero Stevenson MD Unavailable Danni Marcus RN Unavailable Unavailable Mtm, Ea Complex Unavailable Unavailable Svetlana Osman [facility] Unavailable [phone] [facility] Unavailable [phone] Galdino Valdez MD Unavailable Doris Lai MD Primary Care Provider Reason for Visit Reason Onset Date Comments Home Care/Hospice 11/08/2019 wounds dressing brand ges/home care changes Encounter Details Date Type Department Care Team Description 11/08/2019 Telephone [facility] Nadya Lai MD Home Care/Hospice Clinic [place] [address] [facility] (wounds dressing [address] [facility] DR changes/home care [address] [place] [address] changes) [address] [place] [address] [phone] Social History Tobacco Use Types Packs/Day Years [...] Telephone Encounter - Jolanta Reddy RN - 11/11/2019 1:58 PM CDT Received a message back from our care coordination: Unfortunately we do not have resources for daily wound care. ??I would encourage her to have a family member assist her if possible. Called patient. Patient states that she got a call late Monday that Bhavik will be handling the dressing changes-patient will have [place] dressing changes 7 days a week. She had someone come today and he thoughtthat patient will qualify for 7 days per week dressing changes. Patient will reach out to us if she needs anything, for now she has home care dressing changes 7 days per week. Jolanta Reddy RN Message handled by Nurse Triage. Telephone Encounter - Jolanta Reddy RN - 11/11/2019 8:20 AM CDT Huddled with [facility] is unable to take patient as she requires daily nursing visits for would care, due to Medicare. Patient also does not have a caregiver who they could teach dressing changes. Routing to our care coordination to assist: Please review and advise if patient would have any otheroptions. Jolanta Reddy RN Message handled by Nurse Triage. Telephone Encounter - Jolanta Reddy RN - 11/08/2019 3:58 PM CDT Call to patient to see what her home care uses for dressing and if she has someone who they could teach to take over dressing changes. Has been receiving home care since April 2018 and had a nurse come daily, 7 days per week. Patient has Medicare. 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 Patient has all supplies at home: Suresite dressing KerraMax Care dressing Foam dressing: Tegaderm oval 7.5 inches by 8.75 inches Sterile saline solution 4 by 4 gauze Packing strips Sureprep dressing to stick Opticell 18 inches by 3/4 inches Half of ostomy ring (looks like a donut) to put at the edges of Tegaderm to hold it down. Supplies are ordered from [facility] pharmacy when needed. Does not have anyone who could change the dressing for her at home, so home care could not teach anyone to change patient's dressing. Routing to Bel to check with [facility] care. Jolanta Reddy RN Message handled by Nurse Triage. Telephone Encounter - Jolanta Reddy RN - 11/08/2019 3:09 PM CDT Waiting for Bel's input, the next step will connect with care coordination at our clinic. Also, waiting for [facility] to call back, can check on what they recommend as well. Jolanta Reddy RN Message handled by Nurse Triage. Telephone Encounter - Jolanta Reddy RN - 11/08/2019 2:44 PM CDT Received a VM from patient stating that she just got a letter from her home care agency letting her know that she is being discharged from home care as of 11/18/19. Patient is receiving wound care daily and requires would dressing changes daily. Patient asking the next steps as she needs wound care and was unaware of the discharge until she read the letter. I called Caterina with [facility] Home care #[phone]. She will forward my message to another nurse who took over wound care for patient and call me back. I want to know the reason for discharge and the next steps on how to get wound care for the patient. Called patient back-the letter reads patient does no longer qualify for home care due to current level of care needed, the second reason that was listed stated shortage of nursing staff. I huddled with [facility], she will look into this for patient to determine if patient would qualify for [facility] care. Bel-please route back, I will call patient back. Jolanta Reddy RN Message handled by Nurse Triage. documented in this encounter Plan of Treatment Upcoming Encounters Date Type Specialty Care Team Description 11/15/2022 Virtual Visit Pharm Haylie Gonzalez, [facility] [address] [facility] [address] [place] [phone] (Wo rk) 11/15/2022 Virtual Visit IM/Peds Yane Barraza MD [address] [facility] [place] [phone] (Wo rk) 03/03/2023 Virtual Visit Neurology Erlinda Barber MD 420 [facility] 295 [place] [address] (Wo rk) documented as of this encounter Visit Diagnoses Not on filedocumented in this encounter Additional Health Concerns Assessment Noted Time PHQ-9 Depression Total Score: 4 04/12/2019 7:03 AM CDT documented as of this encounter Care Teams Community Services Coordinator Relationship Specialty Start Date End Date Doris Lai MD PCP - General 05/24/19 11/28/19 [address] [facility] [place] [address] Chastity Montero MD Dermatology 09/23/14 420 [facility] 98 [place], [place] [address] Johnnie Alcocer MD Surgeon General Surgery 03/23/[address] [place] [address] Lucero Stevenson Assigned PCP 06/17/18 11/09/19 MD Annetta [address] [address] Danni Marcus, CHANDLER Personal Advocate & 01/09/1901/17 Liaison (PAL) Fernando, Ea Complex 04/23/19 Svetlana Osman, Pharmacist Pharmacotherapy 04/23/[address] [facility] [address] [place] [address] Haylie Cheung, Pharmacist Pharmacist 09/11/[address] [facility] [address] [place] [address] Galdino Valdez MD Assigned PCP 11/10/19 05/23/20 [address] [place] [address] documented as of this encounter
--- OUTSIDE RECORDS SUMMARY | 2022-06-15 12:57 | XMS_ITS | Encounter Summary ---
:1945 Author Organization [facility] Address [address] [place] [address]. [place] [address] Care Team Providers Name Role Phone Chastity Montero MD Unavailable [phone] Johnnie Alcocer MD Unavailable Danni Marcus RN Unavailable Unavailable Mtm, Ea Complex Unavailable Unavailable Svetlana Osman [facility] Unavailable [phone] Haylie Cheung [facility] Unavailable [phone] Galdino Valdez MD Unavailable Galdino Valdez MD Primary Care Provider Encounter Details Date Type Department Care Team Description 12/02/2019 Telephone [facility] Galdino Valdez MD [address] [address] [place] [address] [phone] Social History Tobacco Use Types Packs/Day Years [...] this encounter Miscellaneous Notes Telephone Encounter - Brie Mack RN - 12/02/2019 3:51 PM CDT ANTICOAGULATION MANAGEMENT Patient Name: Charlette Brush Date: 12/02/2019 ASSESSMENT /SUBJECTIVE: Today's INR result of 2.2 [...] Continue your current warfarin dose 13 mg W and 10 mg ROW Instructed patient to follow up no later than: 4 weeks Orders given to Homecare nurse/facility to recheck Education provided: None required Charlette verbalizes understanding and agrees to warfarin dosing plan. Instructed to call the Anticoagulation Clinic for any changes, questions or concerns. 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] group home current use of 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 [Z79.01] Anticoagulation Episode Summary INR check location: Preferred lab: EXTERNAL LAB Send INR reminders to: ZH[facility] Comments: 3mg & 10mg tabs - devaughn dose / [facility] qod - [place]ana [phone] / APPT CARD ONLY Anticoagulation Care Providers Provider Role Specialty Phone number Lucero Stevenson MD Internal Medicine [phone] documented in this encounter Plan of Treatment Upcoming Encounters Date Type Specialty Care Team Description 11/15/2022 Virtual Visit Pharm D Haylie Cheung, [facility] [address] [facility] [place] [address] (Wo rk) 11/15/2022 Virtual Visit IM/Peds Yane Barraza MD [address] [facility] [address] (Wo winter) 03/03/2023 Virtual Visit Neurology Erlinda Barber MD 420 [facility] 295 [place] [address] (Wo winter) documented as of this encounter Procedures Procedure Name Priority Date/Time Associated Diagnosis Comme nts INR Routine 12/02/2019 Results for thi s procedure are in the resu lts section. 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 documented in this encounter Additional Health Concerns Assessment Noted Time PHQ-9 Depression Total Score: 4 04/12/2019 7:03 AM CDT documented as of this encounter Care Teams Records Technician Relationship Specialty Start Date End Date Galdino Valdez MD PCP - General Family Practice 11/29/19 02/12/20 [address] [place], [place] [phone] Chastity Montero MD Dermatology 09/23/14 420 [facility] 98 [place], [place] [phone] Johnnie Alcocer MD Surgeon General Surgery 03/23/[address] [place], [place] [address] Danni Marcus, CHANDLER Personal Advocate & 01/09/1901/17 Liaison (PAL) [place], Ea Complex 04/23/19 Svetlana Osman, Pharmacist Pharmacotherapy 04/23/19 [facility] [address] [place], [place] [phone] Haylie Cheung, Pharmacist Pharmacist 09/11/19 [place] [address] [place], [place] [phone] Galdino Valdez MD Assigned PCP 11/10/19 05/23/20 [address] [place], [place] [phone] documented as of this encounter
--- OUTSIDE RECORDS SUMMARY | 2022-06-15 12:57 | XMS_ITS | Encounter Summary ---
:1945 Author Organization [place] Address [address] [place] [address] Care Team Providers Name Role Phone Chastity Montero MD Unavailable [phone] Johnnie Alcocer MD Unavailable Danni Marcus RN Unavailable Unavailable Mtm, Ea Complex Unavailable Unavailable Svetlana Osman [facility] Unavailable [phone] Haylie Cheung [facility] Unavailable [phone] Galdino Valdez MD Unavailable Doris Lai MD Primary Care Provider Encounter Details Date Type Department Care Team Description 11/20/2019 Orders Only [facility] Jaiden Holcomb DIAGN OSIS NOT YET Clinic Yarelis Mcconnell MD DEFINED (Primary Dx) [address] [address] [place] [address] Social History Tobacco Use [...] 05/03/2021 organizations such as protestant groups, unions, fraNovoED or athletic groups, or school groups? How [...] Description 11/15/2022 Virtual Visit Pharm Haylie Gonzalez, [facility] [address] [place] [address] [place] [id number] (Wo rk) 11/15/2022 Virtual Visit IM/PedYane Muir MD [address] [place] [address] [place] [address] (Wo rk) 03/03/2023 Virtual Visit Neurology Erlinda Barber MD 420 [facility] 295 [place], [place] [id number] (Wo rk) documented as of this encounter Procedures Procedure Name Priority Date/Time Associated Diagnosis Comme [facility] CERTIFICATION CABLE SPLICING TECHNICIAN Routine 11/21/2019 DIAGNOSIS NOT YE T DEFINED PATIENT documented in this encounter Results MD CERTIFICATION CABLE SPLICING TECHNICIAN PATIENT (11/21/2019) Narrative This result has an attachment that is no t available. Jaiden Holcomb MD [employer] documented in this encounter Visit Diagnoses Diagnosis DIAGNOSIS NOT YET DEFINED - Primary documented in this encounter Additional Health Concerns Assessment Noted Time PHQ-9 Depression Total Score: 4 04/12/2019 7:03 AM CDT documented as of this encounter Care Teams Inspector Aluminum Boat Relationship Specialty Start Date End Date Doris Lai MD PCP - General 05/24/19 11/28/[address] [place] [address] [place] [address] Chastity Montero MD Dermatology 09/23/14 [address] [facility] 98 [place], [place] 3[address] Johnnie Alcocer MD Surgeon General Surgery 03/23/[address] 300 [place], [place] [address] Danni Marcus, CHANDLER Personal Advocate & 01/09/1901/17 Liaison (PAL) Mtkinsey, Ea Complex 04/23/19 Svetlana Osman, Pharmacist Pharmacotherapy 04/23/19 [facility] [address] [place], [place] [phone] Haylie Cheung, Pharmacist Pharmacist 09/11/19 [place] [address] [place] [place], [place] [address] Galdino Valdez MD Assigned PCP 11/10/19 05/23/20 [address] [place], [place] [phone] documented as of this encounter
--- OUTSIDE RECORDS SUMMARY | 2022-06-15 12:57 | XMS_ITS | Encounter Summary ---
:1945 Author Organization [facility] Address [address] [place] [address] Care Team Providers Name Role Phone Chastity Montero MD Unavailable [phone] Johnnie Alcocer MD Unavailable Lucero Stevenson MD Unavailable [phone] Danni Marcus RN Unavailable Unavailable Mtm, Ea Complex Unavailable Unavailable Svetlana Osman [facility] Unavailable [phone] [facility] Unavailable [phone] Galdino Valdez MD Unavailable Galdino Valdez MD Primary Care Provider Jaiden Holcomb MD Primary Care Provider [phone] Kendall Joseph MD Unavailable Erlinda Barber MD Unavailable Jaiden Holcomb MD Unavailable [phone] Doris Lai MD Primary Care Provider Reason for Visit Reason Comments Other PHOTOS Encounter Details Date Type Department Care Team Description 10/30/2019 [facility] Patience Toussaint NP Other (PHOTOS) [facility] 2945 [facility] 2945 [facility] [address] [place] Suite [facility] [place] [place] [address] [phone] Social History Tobacco Use Types Packs/Day Years [...] this encounter Miscellaneous Notes Telephone Encounter - Angelina Wood - 10/30/2019 12:45 PM CDT Images from the original note were not included. Telephone Encounter by Angelina Wood at 10/30/2019 12:45 PM Author: Angelina Wood Service: -- Author Type: Patient Access Filed: 10/30/2019 12:47 PM Encounter Date: 10/30/2019 Status: Signed Therapeutic Sales Specialist: Angelina Wood (Patient Access) Here are wound pictures from [facility] wound and ostomy consult on 10/29/19. Please call with any questions or updates. Charlette [phone] Telephone Encounter - DavidAngelina dhillon - 10/30/2019 11:20 AM CDT Images from the original note were not included. Telephone Encounter by Angelina Wood at 10/30/2019 11:20 AM Author: Angelina Wood Service: -- Author Type: Patient Access Filed: 10/30/2019 11:21 AM Encounter Date: 10/30/2019 Status: Signed Therapeutic Sales Specialist: Angelina Wood (Patient Access) documented in this encounter Plan of Treatment Upcoming Encounters Date Type Specialty Care Team Description 11/15/2022 Virtual Visit Pharm Haylie Gonzalez, [facility] [address] [facility] [address] [place] [id number] (Wo rk) 11/15/2022 Virtual Visit IM/Yane Mathias MD [address] [place] [address] [place] [id number] (Wo rk) 03/03/2023 Virtual Visit Neurology Erlinda Barber MD 420 [facility] 295 [place], [place] [address] (Wo rk) documented as of this encounter Visit Diagnoses Not on filedocumented in this encounter Additional Health Concerns Assessment Noted Time PHQ-9 Depression Total Score: 4 04/12/2019 7:03 AM CDT documented as of this encounter Care Teams Aircraft Engine Cylinder Mechanic Relationship Specialty Start Date End Date Galdino Valdez MD PCP - General Family Practice 11/29/19 02/12/20 [address] [facility] [place] [phone] Jaiden Holcomb PCP - General Internal Medicine 02/13/2010/03 MD Jayesh [address] [place] [address] [place] [phone] Doris Lai MD PCP - General 05/24/19 11/28/19 [address] [facility] [place] [address] Chastity Montero MD Dermatology 09/23/14 420 [facility] 98 [place] [address] Johnnie Alcocer MD Surgeon General Surgery 03/23/[address] [place] [address] Lucero Stevenson, Assigned PCP 06/17/18 MD [place]O [place] [address] [place] [address] Danni Marcus, CHANDLER Personal Advocate & 01/09/1901/17 Liaison (PAL) Fernando, Ea Complex 04/23/19 Svetlana Osman, Pharmacist Pharmacotherapy 04/23/[address] [facility] [address] [place] [address] Haylie Cheung, Pharmacist Pharmacist 09/11/[address] [facility] [address] [facility] [address] [place], [place] [phone] Galdino Valdez MD Assigned PCP 11/10/19 05/23/20 [address] [place] [address] Opal, Assigned Sleep 05/08/20 03/27/21 Kendall Meehan MD Provider [address] [place] [address] Erlinda Barber MD Assigned Neuroscience 05/08/20 01/26/21 420 [facility] 295 [place] [address] Jaiden Holcomb Assigned PCP 05/24/20 MD Jayesh 9 [place], [place] [address] documented as of this encounter
--- OUTSIDE RECORDS SUMMARY | 2022-06-15 12:57 | XMS_ITS | Encounter Summary ---
:1945 Author Organization [facility] Address [address] [place] [address] Care Team Providers Name Role Phone Chastity Montero MD Unavailable [phone] Johnnie Alcocer MD Unavailable Danni Marcus RN Unavailable Unavailable Mtm, Ea Complex Unavailable Unavailable Svetlana Osman [facility] Unavailable [phone] Haylie Cheung [facility] Unavailable [phone] Galdino Valdez MD Unavailable Galdino Valdez MD Primary Care Provider Jaiden Holcomb MD Primary Care Provider Kendall Joseph MD Unavailable Erlinda Barber MD Unavailable Jaiden Holcomb MD Unavailable [phone] Doris Lai MD Primary Care Provider Reason for Visit Reason Comments Other PHOTOS Encounter Details Date Type Department Care Team Description 11/28/2019 [facility] Patience Toussaint NP Other (PHOTOS) [facility] [address] [place] [address] [place] [phone] Social History Tobacco Use Types Packs/Day Years [...] Notes Telephone Encounter - Angelina Wood - 11/28/2019 10:03 AM CDT Images from the original note were not included. Telephone Encounter by Angelina Wood at 11/28/2019 10:03 AM Author: Angelina Wood Service: -- Author Type: Patient Access Filed: 11/28/2019 10:03 AM Encounter Date: 11/28/2019 Status: Signed Application Designer: Angelina Wood (Patient Access) documented in this encounter Plan of Treatment Upcoming Encounters Date Type Specialty Care Team Description 11/15/2022 Virtual Visit Haylie Wakefield, [facility] [address] [facility] [address] [place], [place] [phone] (Wo rk) 11/15/2022 Virtual Visit IM/Yane Mathias MD [address] [place] [address] [place], [place] [phone] (Wo rk) 03/03/2023 Virtual Visit Neurology Erlinda Barber MD 420 [facility] 295 [place], [place] [address] (Wo rk) documented as of this encounter Visit Diagnoses Not on filedocumented in this encounter Additional Health Concerns Assessment Noted Time PHQ-9 Depression Total Score: 4 04/12/2019 7:03 AM CDT documented as of this encounter Care Teams Manager Editorial Relationship Specialty Start Date End Date Galdino Valdez MD PCP - General Family Practice 11/29/19 02/12/20 [address] [place], [place] [phone] Jaiden Holcomb PCP - General Internal Medicine 02/13/2010/03 MD Jayesh [address] [place] [address] [address] [place] [phone] Doris Lai MD PCP - General 05/24/19 11/28/[address] [place] [address] [address] [place] [phone] Chastity Montero MD Dermatology 09/23/14 420 [facility] 98 [place], [place] [address] Johnnie Alcocer MD Surgeon General Surgery 03/23/[address] [place] [address] Danni Marcus, CHANDLER Personal Advocate & 01/09/1901/17 Liaison (PAL) Mtm, Ea Complex 04/23/19 Svetlana Osman, Pharmacist Pharmacotherapy 04/23/19 [facility] [address] [facility] [address] [place], [place] [phone] Haylie Cheung, Pharmacist Pharmacist 09/11/19 [facility] [address] [place] [address] Galdino Valdez MD Assigned PCP 11/10/19 05/23/20 [address] [place], [place] [phone] Opal, Assigned Sleep 05/08/20 03/27/21 Kendall Meehan MD Provider [address] [place] [address] Erlinda Barber MD Assigned Neuroscience 05/08/20 01/26/21 420 [facility] 295 [place] [address] Jaiden Holcomb Assigned PCP 05/24/20 MD Jayesh 909 [place] [address] documented as of this encounter
--- OUTSIDE RECORDS SUMMARY | 2022-06-15 12:57 | XMS_ITS | Encounter Summary ---
:1945 Author Organization [facility] Address [address] [place] [address] Care Team Providers Name Role Phone Chastity Montero MD Unavailable [phone] Johnnie Alcocer MD Unavailable Lucero Stevenson MD Unavailable Danni Marcus RN Unavailable Unavailable Mtm, Ea Complex Unavailable Unavailable Svetlana Osman [facility] Unavailable [phone] Haylie Cheung [facility] Unavailable [phone] Galdino Valdez MD Unavailable Galdino Valdez MD Primary Care Provider Jaiden Holcomb MD Primary Care Provider [phone] Kendall Joseph MD Unavailable Erlinda Barber MD Unavailable Jaiden Holcomb MD Unavailable Doris Lai MD Primary Care Provider Ruth John MD Unavailable Kajal Huggins MD Unavailable Patience Toussaint NP Unavailable Encounter Details Date Type Department Care Team Description 11/05/2019 Records - [facility] CONVERSION Scan, Non-Provider [...] Cheung, [facility] 1440 [facility] [place] [address] (Wo rk) 11/15/2022 Virtual Visit IM/Peds Yane Barraza MD [address] [facility] [place] [address] (Wo rk) 03/03/2023 Virtual Visit Neurology Erlinda Barber MD 420 [facility] 295 [place] [address] (Wo rk) documented as of this encounter Visit Diagnoses Not on filedocumented in this encounter Additional Health Concerns Assessment Noted Time PHQ-9 Depression Total Score: 4 04/12/2019 7:03 AM CDT documented as of this encounter Care Teams Sugarcane Research Technician Relationship Specialty Start Date End Date Galdino Valdez MD PCP - General Family Practice 11/29/19 02/12/20 [address] [place], [place] [phone] Jaiden Holcomb PCP - General Internal Medicine 02/13/2010/03 MD Jayesh [address] [place] [address] [place], [place] [phone] Doris Lai MD PCP - General 05/24/19 11/28/19 [address] [facility] [address] [place] [phone] Chastity Montero MD Dermatology 09/23/[address] [place] [address] 98 [place], [place] [address] Johnnie Alcocer MD Surgeon General Surgery 03/23/17 [address] [facility] 300 [place] [address] Lucero Stevenson, Assigned PCP 06/17/18 MD TOÑO LOPEZ [address] [place] [address] Danni Marcus, CHANDLER Personal Advocate & 01/09/1901/17 Liaison (PAL) Mtkinsey, Ea Complex 04/23/19 Svetlana Osman, Pharmacist Pharmacotherapy 04/23/19 [facility] [address] [place], [place] [phone] Haylie Cheung, Pharmacist Pharmacist 09/11/19 [facility] [address] [place] [address] Galdino Valdez MD Assigned PCP 11/10/19 05/23/20 [address] [place], [place] [phone] Opal, Assigned Sleep 05/08/20 03/27/21 Kendall Meehan MD Provider [address] [place], [place] [address] Erlinda Barber MD Assigned Neuroscience 05/08/20 01/26/21 [address] [facility] [address] [facility] [address] Provider [place], [place] [address] Jaiden Holcomb Assigned PCP 05/24/20 MD Jayesh 909 [place], [place] [address] Ruth John MD Assigned Infectious 01/29/21 07/03/21 [facility] INFECTIOUS Disease Provider [facility] [address] [place] [address] Kajal Huggins MD Assigned Neuroscience 01/29/21 10/23/[address] [place] [address] Provider [address] [place] [address] Patience Toussaint NP Assigned Surgical 01/29/21 02/11/[address] [place] [address] Provider [address] [place] [address] documented as of this encounter
--- OUTSIDE RECORDS SUMMARY | 2022-06-15 12:57 | XMS_ITS | Encounter Summary ---
:1945 Author Organization [facility] Address [address] [place] [address] Care Team Providers Name Role Phone Chastity Montero MD Unavailable [phone] Johnnie Alcocer MD Unavailable Danni Marcus RN Unavailable Unavailable Mtm, Ea Complex Unavailable Unavailable Svetlana Osman [facility] Unavailable [phone] Haylie Cheung [facility] Unavailable [phone] Galdino Valdez MD Unavailable Galdino Valdez MD Primary Care Provider Jaiden Holcomb MD Primary Care Provider Kendall Joseph MD Unavailable Erlinda Barber MD Unavailable Jaiden Holcomb MD Unavailable [phone] Reason for Visit Reason Comments Other [place] patient questions aob ut lab orders Encounter Details Date Type Department Care Team Description 12/05/2019 [facility] Patience Toussaint NP Other ([facility] [address] [place] [address] patient qu [facility] aobut lab ... [address] [place], [place] [address]A [place] [address] [place] [phone] Social History Tobacco Use Types Packs/Day Years [...] 05/03/2021 organizations such as sikh groups, unions, fraternal or athletic groups, or [...] encounter Miscellaneous Notes Telephone Encounter - Yanet Gtuiérrez - 12/06/2019 9:39 AM CDT Patient is scheduled for lab on 12/10. Telephone Encounter - Yanet Gutiérrez - 12/05/2019 10:13 AM CDT Patient is calling regarding the order for the lab that were ordered during the VV on 11/28. She would like to know when these need to be done and if this is something that Dr. Huggins would like before her OV on 12/11. Please call her cell phone with update, ok to leave detailed message. documented in this encounter Plan of Treatment Upcoming Encounters Date Type Specialty Care Team Description 11/15/2022 Virtual Visit Pharm Haylie Gonzalez, [facility] [address] [facility] [address] [place], [place] [phone] (Wo rk) 11/15/2022 Virtual Visit [place] [address] [place] [address] [address] [place] [phone] (Wo rk) 03/03/2023 Virtual Visit Neurology Erlinda Barber MD [address] [place] [address] 295 [place] [address] (Wo rk) documented as of this encounter Visit Diagnoses Not on filedocumented in this encounter Additional Health Concerns Assessment Noted Time PHQ-9 Depression Total Score: 4 04/12/2019 7:03 AM CDT documented as of this encounter Care Teams Target Setter Relationship Specialty Start Date End Date Galdino Valdez MD PCP - General Family Practice 11/29/19 02/12/20 [address] [place], [place] [phone] Jaiden Holcomb PCP - General Internal Medicine 02/13/2010/03 MD Jayesh [address] [facility] [address] [place] [id number] Chastity Montero MD Dermatology 09/23/14 420 [facility] 98 [place], [place] [address] Johnnie Alcocer MD Surgeon General Surgery 03/23/[address] [place], [place] [address] Danni Marcus, CHANDLER Personal Advocate & 01/09/1901/17 Liaison (PAL) Mtm, Ea Complex 04/23/19 Svetlana Osman, Pharmacist Pharmacotherapy 04/23/19 [facility] [address] [facility] [address] [place], [place] [phone] Haylie Cheung, Pharmacist Pharmacist 09/11/19 [facility] [address] [place] [address] Galdino Valdez MD Assigned PCP 11/10/19 05/23/20 [address] [place], [place] [phone] Opal, Assigned Sleep 05/08/20 03/27/21 Kendall Meehan MD Provider [address] [place] [address] Erlinda Barber MD Assigned Neuroscience 05/08/20 01/26/21 420 [facility] 295 [place] [address] Jaiden Holcomb Assigned PCP 05/24/20 MD Jayesh 909 [place] [address] documented as of this encounter
--- OUTSIDE RECORDS SUMMARY | 2022-06-15 12:57 | XMS_ITS | Encounter Summary ---
:1945 Author Organization [facility] Address [address] [place] [address] Care Team Providers Name Role Phone Chastity Montero MD Unavailable [phone] Johnnie Alcocer MD Unavailable Danni Marcus RN Unavailable Unavailable Mtm, Ea Complex Unavailable Unavailable Svetlana Osman [facility] Unavailable [phone] Haylie Cheung [facility] Unavailable [phone] Galdino Valdez MD Unavailable Doris Lai MD Primary Care Provider Reason for Visit Reason Onset Date Comments Orders 11/25/2019 Verbal for wound car e Encounter Details Date Type Department Care Team Description 11/25/2019 [facility] Nadya Lai MD Orders (Verbal for Clinic [address] wound care ) 3305 [facility] [place] [address] [address] [place] [address] [phone] Social History Tobacco Use Types Packs/Day Years [...] 05/03/2021 organizations such as temple groups, unions, fraWandoujia or athletic groups, or school groups? How [...] Telephone Encounter - Danni Marcus RN - 11/26/2019 10:57 AM CDT Discussed with Dr. Holcomb-verbal approval given for wound care orders. LM for wound care nurse with approval of orders. Advised to call with any other questions or concerns. 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 Reason service is needed/diagnosis: heavy drainage When are orders needed by: khadra Has this been discussed with Provider: Yes Does patient have a preference on a Group/Provider/Facility? n/a Does patient have an appointment scheduled: Wound care appt on Monday Where to send Orders: N/A - Verbal Okay to leave detailed message? Yes at Other phone number: [phone]* Yanet Gagnon on 11/25/2019 at 1:32 PM documented in this encounter Plan of Treatment Upcoming Encounters Date Type Specialty Care Team Description 11/15/2022 Virtual Visit Pharm Haylie Gonzalez, [facility] [address] [place] [address] (Wo rk) 11/15/2022 Virtual Visit [place] [address] [place] [address] [address] [place] [phone] (Wo rk) 03/03/2023 Virtual Visit Neurology Erlinda Barber MD 420 [facility] 295 [place] [address] (Wo rk) documented as of this encounter Visit Diagnoses Not on filedocumented in this encounter Additional Health Concerns Assessment Noted Time PHQ-9 Depression Total Score: 4 04/12/2019 7:03 AM CDT documented as of this encounter Care Teams Roll Scale Man Relationship Specialty Start Date End Date Doris Lai MD PCP - General 05/24/19 11/28/[address] [place] [address] [place] [address] Chastity Montero MD Dermatology 09/23/14 [place] 420 [facility] 98 [place], [place] [address] Johnnie Alcocer MD Surgeon General Surgery 03/23/[address] [place], [place] [address] Danni Marcus, CHANDLER Personal Advocate & 01/09/1901/17 Liaison (PAL) Fernando, Kyle Complex 04/23/19 Svetlana Osman, Pharmacist Pharmacotherapy 04/23/19 [facility] [address] [place], [place] [phone] Haylie Cheung, Pharmacist Pharmacist 09/11/19 [facility] [address] [place] [address] Galdino Valdez MD Assigned PCP 11/10/19 05/23/20 [address] [address] [place] [address] documented as of this encounter
--- OUTSIDE RECORDS SUMMARY | 2022-06-15 12:57 | XMS_ITS | Encounter Summary ---
:1945 Author Organization [place] Address [address] [place] [address] Care Team Providers Name Role Phone Chastity Montero MD Unavailable [phone] Johnnie Alcocer MD Unavailable Lucero Stevenson MD Unavailable [phone] Danni Marcus RN Unavailable Unavailable Mtm, Ea Complex Unavailable Unavailable Svetlana Osman [facility] Unavailable [phone] Haylie Cheung [facility] Unavailable [phone] Doris Lai MD Primary Care Provider Reason for Visit Reason Onset Date Comments Home Care/Hospice 11/01/2019 Encounter Details Date Type Department Care Team Description 11/01/2019 [facility] Doris Agarwal MD Home Care/Hospice Yarelis [address] [facility] 3305 [facility] [place] [address] [address] [place] [address] [phone] Social History Tobacco Use Types Packs/Day Years [...] 05/03/2021 organizations such as advent groups, unions, [employer] or athletic groups, or school groups? How [...] Telephone Encounter - Jolanta Reddy RN - 11/01/2019 8:29 AM CDT for Bibi with a verbal approval for the orders. Jolanta Reddy RN Message handled by Nurse Triage. Telephone Encounter - Doris Cboian - 11/01/2019 7:54 AM CDT Order/Referral Request: Who is requesting: Bibi from [facility] Orders being requested: PT Reason service is needed/diagnosis: PT When are orders needed by: PT orders for evaluation ONLY, patient is at highest level of function Has this been discussed with Provider: No Does patient have a preference on a Group/Provider/Facility? [facility] Does patient have an appointment scheduled: No Where to send Orders: Call Okay to leave detailed message? Yes at Other phone number: [phone] Routing documented in this encounter Plan of Treatment Upcoming Encounters Date Type Specialty Care Team Description 11/15/2022 Virtual Visit Haylie Wakefield, [facility] [address] [place] [address] (Wo rk) 11/15/2022 Virtual Visit IM/Peds Yane Barraza MD [address] [place] [address] (Wo rk) 03/03/2023 Virtual Visit Neurology Erlinda Barber MD 420 [facility] 295 [place], [place] [address] (Wo rk) documented as of this encounter Visit Diagnoses Not on filedocumented in this encounter Additional Health Concerns Assessment Noted Time PHQ-9 Depression Total Score: 4 04/12/2019 7:03 AM CDT documented as of this encounter Care Teams Coal Mill Operator Relationship Specialty Start Date End Date Doris Lai MD PCP - General 05/24/19 11/28/[address] [facility] [address] [place], [place] [id number] Chastity Montero MD Dermatology 09/23/[address] [place] [address] 98 [place], [place] [address] Johnnie Alcocer MD Surgeon General Surgery 03/23/17 [address] [facility] [address] [place] [address] Lucero Stevenson Assigned PCP 06/17/18 11/09/19 [facility] [address] [id number] Danni Marcus, CHANDLER Personal Advocate & 01/09/1901/17 Liaison (PAL) Mtkinsey, Ea Complex 04/23/19 Svetlana Osman, Pharmacist Pharmacotherapy 04/23/19 [facility] [address] [place], [place] [phone] Haylie Cheung, Pharmacist Pharmacist 09/11/19 [facility] [address] [place] [id number] documented as of this encounter
--- OUTSIDE RECORDS SUMMARY | 2022-06-15 12:57 | XMS_ITS | Encounter Summary ---
:1945 Author Organization [place] Address [address] [place] [address] Care Team Providers Name Role Phone Chastity Montero MD Unavailable [phone] Johnnie Alcocer MD Unavailable Lucero Stevenson MD Unavailable [phone] Danni Marcus RN Unavailable Unavailable Mtm, Ea Complex Unavailable Unavailable Svetlana Osman [facility] Unavailable [phone] Haylie Cheung [facility] Unavailable [phone] Galdino Valdez MD Unavailable Galdino Valdez MD Primary Care Provider Jaiden Holcomb MD Primary Care Provider [phone] Kendall Joseph MD Unavailable Erlinda Barber MD Unavailable Jaiden Holcomb MD Unavailable [phone] Doris Lai MD Primary Care Provider Reason for Visit Reason Comments Other left ischium ulcer Encounter Details Date Type Department Care Team Description 11/01/2019 Office Visit - [facility] Patience Toussaint Pressu re injury of left ischium, stage 4 (H); [facility] CREATIVE DESIGNER Morbid obesity with BMI of 50.0-59.9, ad ult (H); [place] [address] Hypoalbuminemia [address] [facility] [address] [place] [address] [phone] Social History Tobacco Use Types Packs/Day Years [...] documented as of this encounter Progress Notes Molly Guido - 11/01/2019 2:00 PM CDT Charlette Brush is a 74 y.o. female who is being evaluated via [...] verbal consent to a Video visit? Yes Patient would like to receive their AVS by AVS Preference: Mail a copy. Patient would like the video invitation sent by: Text to cell phone: [phone] Additional provider notes: in chart Video-Visit Details Type of service: Video Visit Originating Location (pt. Location): Home Distant Location (provider location): [facility] Mode of Communication: Video Conference via atVenu Spent 10 minutes with Patient on phone before connect with provider on video. Pt continues wound care for coccyx with [facility]. Wound care done 3 times week. Current cleaning wound with dilute Hibiclens, pack with silver alginate rope and Kelmax dressing. Pt denied pain or discomfort. Lata Barnes LPN Patience Toussaint NP - 11/01/2019 2:00 PM CDT Images from the original note were not included. 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 They arrive/on the phone today with [facility] nurse. They are currently using Kerracel alginate to the wound covering with bordered tegaderm foam to the wounds. This is being done by [facility] daily; they feel she needs two times a day changes but this is not possible and pt cannot change The dressing on her own. . She had MRI done 05/2019 + for early osteomyelitis; was referred to ID; treated with 4 weeksof unasyn; tolerated well. Has been working with Dr. Steward at present time; he does not feel she is agood surgical candidate at this time due to her weight and the size of the wound. She has a low air loss mattress. Did not receive her cushion yet. They are feeling well today. Denies fevers, [...] by mouth daily., Disp: , Rfl: ? odvvennfotnz-xkdixaex-insnqb (CEROVITE SENIOR) tablet, Take 1 tablet by [...] Patient has appointment with Retina Specialist at [facility] on 01/11. Patient reports she was [...] Referral placed for Dr. Kajal Huggins at [facility] in [place] per patient request. She has contact i [...] ? Weakness left lower limb Physical Exam: There were no vitals taken for this visit. General: Patient presents in no apparent distress. Psychiatric: Alert and oriented x3. Respiratory: unlabored breathing; no cough, able to speak in full sentences without becoming breathless Integumentary: Skin is uniformly warm, dry and pink. Wound #1 Location: left IT Size: 8L x 5W x 5depth. + sinus tract present, 6cm in the base of the wound Wound base: 90% viable no undermining present. Wound is full thickness. There is copious drainage.Periwound: no denudement, erythema, induration, maceration or warmth. NOTE: wound assessment is donethrough either visual inspection from video call or through picture along with patient/HHC nurse description Circumferential volume measures: No flowsheet data found. Ulceration(s)/Wound(s): VASC Wound 05/15/19 Buttocks (Active) Pre Size Length 8 11/01/19 1400 Pre Size Width 5 11/01/19 1400 Pre Size Depth 5 11/01/19 1400 Pre Total Sq cm 40 11/01/19 1400 Lab Values Lab Results Component Value Date SEDRATE 25 (H) 06/04/2019 Lab Results Component Value Date CREATININE 0.62 06/04/2019 No results found for: HGBA1C Lab Results Component Value Date BUN 23 06/04/2019 Lab Results Component Value Date ALBUMIN 3.3 (L) 06/04/2019 No results found for: [id number] Impression: 1. Pressure injury of left ischium, stage 4 (H) Supply - Other 2. Morbid obesity with BMI of 50.0-59.9, adult (H) Supply - Other 3. Hypoalbuminemia Supply - Other 11/01/2019 left IT 08/13/2019 left IT Are any of these wounds new today: No; Location: na Assessment/Plan: 1. Debridement: na 2. Wound treatment: wound treatment will include irrigation and dressings to promote autolytic debridement which will include:continue with home care; cleanse with either saline or dilute hibiclens; silver calcium alginate such as kerramax ag or aquacel ag; cover with tegaderm bordered foam large; change daily; did poorly with wound vac in the past; following with Dr. Steward for possible flap in the future Worsened wound; [facility] is concerned about the chronicity of the wound; they do not continue to see patients with chronic wounds or for palliative wound care; will speak to my NM about this pt and see if we need to open pt up to different [facility] agency. 3. Edema: na. 4. Nutrition: needs to focus on weight reduction and protein in the diet 5. Offloading: low air loss mattress; she has not recievedher cushion we will reorder this through [facility]; reposition frequently avoid direct pressure over the wound Patient will follow up with me in 4 weeks for reevaluation. They were instructed to call the clinicsooner with any signs or symptoms of infection or any further questions/concerns. Answered all questions. Time spent on the phone/video chat 8 minutes Patience Toussaint DNP, RN, SECURITY SOLUTIONS ARCHITECT, CWOCN, CFCN, CLT [facility] [phone] Type of service: Video Visit Video Start and End Time : 156 to 204p Originating Location (pt. Location): pt home Distant Location (provider location): [facility] Mode of Communication: Igor, Chas This note was electronically signed by Patience Toussaint documented in this encounter Miscellaneous Notes Patient Instructions - HE - Patience Toussaint NP - 11/01/2019 2:00 PM CDT Images from the original note were not included. Patient Instructions by Patience Toussaint NP at 11/01/2019 2:00 PM Author: Patience Toussaint NP Service: -- Author Type: Nurse Practitioner Filed: 11/01/2019 2:07 PM Encounter Date: 11/01/2019 Status: Signed Water Resource Agent: Patience Toussaint NP (Nurse Practitioner) Continue home care Roho cushion was reordered from [facility] Instructions Every day home care will Irrigate your left ischial tuberosity wound(s) with dilute hibiclens (30cc in 500cc NS) Pat Dry Ok to use nystatin powder as needed to surrounding rash Apply skin prep to skin surrounding the wound Apply Kerramax ag rope into/onto the wounds Cover with Tegaderm bordered foam It is ok to get your wound wet in the bath or shower; do wound cares after bathing SEEK MEDICAL CARE IF: ?? You have [...] than this please contact our office at [phone]. Patience Toussaint DNP, RN, SECURITY SOLUTIONS ARCHITECT, [facility] [phone] You will need to reposition frequently; keep direct pressure off of the wound or reddened area Reposition Every 1-2 hours while in bed; left, right; supine; repeat Reposition Every 15 minutes while up in a chair; chair push ups Stand every 30 minutes while in a chair if able Obtain a seat cushion; can get a 4 high density foam at [employer]; or [employer] or J-cushion from [employer]; or we can order a ROHO cushion if you qualify for this type of cushion 4 high density foam cushion GeoMat Cushion Nacho Cushion Roho Cushion [facility] [address] [place] [address] [place] [address] [place] [address] [facility] [address] [place] [address] [email or web address] [facility] [phone] [facility] [address] [place] [address] Chair Pushups Bed Positioning documented in this encounter Plan of Treatment Upcoming Encounters Date Type Specialty Care Team Description 11/15/2022 Virtual Visit Pharm Haylie Gonzalez, [facility] [address] [place] [address] [place] [address] (Wo rk) 11/15/2022 Virtual Visit [place] [address] [place] [address] [place] [address] (Wo rk) 03/03/2023 Virtual Visit Neurology Erlinda Barber MD 420 [facility] 295 [place] [address] (Wo rk) documented as [...] as of this encounter Care Teams Automation Architect Relationship Specialty Start Date End Date Galdino Valdez MD PCP - General Family Practice 11/29/19 02/12/20 [address] [place] [address] Jaiden Holcomb PCP - General Internal Medicine 02/13/2010/03 MD Jayesh [address] [facility] [address] [place], [place] [phone] Doris Lai MD PCP - General 05/24/19 11/28/19 [address] [facility] [address] [place], [place] [phone] Chastity Montero MD Dermatology 09/23/[address] [place] [address] 98 [place], [place] [id number] Johnnie Alcocer MD Surgeon General Surgery 03/23/17 [address] [facility] 300 [place] [address] Lucero Stevenson, Assigned PCP 06/17/18 MD TOÑO LOPEZ [address] [place] [address] Danni Marcus, CHANDLER Personal Advocate & 01/09/1901/17 Liaison (PAL) Fernando, Ea Complex 04/23/19 Svetlana Osman, Pharmacist Pharmacotherapy 04/23/19 [facility] [address] [place], [place] [phone] Haylie Cheung, Pharmacist Pharmacist 09/11/19 [facility] [address] [place], [place] [phone] Galdino Valdez MD Assigned PCP 11/10/19 05/23/20 [address] [facility], [place] [id number] Opal, Assigned Sleep 05/08/20 03/27/21 Kendall Meehan MD Provider [address] [place] [address] Erlinda Barber MD Assigned Neuroscience 05/08/20 01/26/21 420 [facility] 295 [place] [address] Jaiden Holcomb Assigned PCP 05/24/20 MD Jayesh 909 [place] [address] documented as of this encounter
--- OUTSIDE RECORDS SUMMARY | 2022-06-15 12:57 | XMS_ITS | Encounter Summary ---
:1945 Author Organization [place] Address [address] [place] [address] Care Team Providers Name Role Phone hCastity Montero MD Unavailable [phone] Johnnie Alcocer MD Unavailable Danni Marcus RN Unavailable Unavailable Mtm, Ea Complex Unavailable Unavailable Svetlana Osman [facility] Unavailable [phone] Haylie Cheung [facility] Unavailable [phone] Galdino Valdez MD Unavailable Doris Lai MD Primary Care Provider Encounter Details Date Type Department Care Team Description 11/11/2019 Orders Only [facility] Doris Lai, DIAGNO SIS NOT YET Clinic Yarelis PATEL DEFINED (Primary Dx) [address] [place] [address] [facility] [address] [place] [address] [place] [address] Social History Tobacco Use [...] 05/03/2021 organizations such as christian groups, unions, [employer] or athletic groups, or school groups? How [...] Visit Pharm Haylie Gonzalez, [facility] [address] [place] [address] [place] [id number] (Wo rk) 11/15/2022 Virtual Visit IM/Peds Yane Barraza MD [address] [place] [address] [place] [phone] (Wo rk) 03/03/2023 Virtual Visit Neurology Erlinda Barber MD 420 [facility] 295 [place], [place] [address] (Wo rk) documented as of this encounter Procedures Procedure Name Priority Date/Time Associated Diagnosis Comme [facility] RECERTIFICATION CORN SHELLER PT Routine 11/15/2019 DIAGNOSIS N OT YET DEFINED documented in this encounter Results RECERTIFICATION CORN SHELLER PT (11/15/2019) Narrative This result has an attachment that is no t available. Doris Lai MD SPECIAL REPORTS documented in this encounter Visit Diagnoses Diagnosis DIAGNOSIS NOT YET DEFINED - Primary documented in this encounter Additional Health Concerns Assessment Noted Time PHQ-9 Depression Total Score: 4 04/12/2019 7:03 AM CDT documented as of this encounter Care Teams Tool Checker Relationship Specialty Start Date End Date Doris Lai MD PCP - General 05/24/19 11/28/[address] [place] [address] [place] [id number] Chastity Montero MD Dermatology 09/23/14 [address] [facility] [facility] 98 [place], [place] [address] Johnnie Alcocer MD Surgeon General Surgery 03/23/[address] [place], [place] [address] Danni Marcus, CHANDLER Personal Advocate & 01/09/1901/17 Liaison (PAL) Mtkinsey, Ea Complex 04/23/19 Svetlana Osman, Pharmacist Pharmacotherapy 04/23/19 [facility] [address] [place], [place] [phone] Haylie Cheung, Pharmacist Pharmacist 09/11/19 [facility] [address] [place], [place] [phone] Galdino Valdez MD Assigned PCP 11/10/19 05/23/20 [address] [place], [place] [phone] documented as of this encounter
--- OUTSIDE RECORDS SUMMARY | 2022-06-15 12:57 | XMS_ITS | Encounter Summary ---
:1945 Author Organization [place] Address [address] [place] [address] Care Team Providers Name Role Phone Chastity Montero MD Unavailable [phone] Johnnie Alcocer MD Unavailable Danni Marcus RN Unavailable Unavailable Mtm, Ea Complex Unavailable Unavailable Svetlana Osman [facility] Unavailable [phone] Haylie Cheung [facility] Unavailable [phone] Galdino Valdez MD Unavailable Doris Lai MD Primary Care Provider Encounter Details Date Type Department Care Team Description 11/15/2019 [facility] Doris Agarwal MD [place] 330 [facility] 3[address] [facility] [place] [address] [address] [place] [address] [phone] Social History Tobacco Use Types Packs/Day Years [...] Telephone Encounter - Jolanta Reddy RN - 11/18/2019 9:05 AM CDT Called Manny with a verbal ok. Jolanta Reddy RN Message handled by Nurse Triage. Telephone Encounter - Gisele Reed - 11/15/2019 4:15 PM CDT Routing to SB5 PAL Telephone Encounter - Columba Larkin - 11/15/2019 3:23 PM CDT Manny (Home Care Physical Therapist) calling requesting orders. 1 time a week for 4 weeks for lymphedema treatment. Please call Manny at [phone], okay to leave a message letting him know if this approved. Columba Larkin, Adjuster Leader documented in this encounter Plan of Treatment Upcoming Encounters Date Type Specialty Care Team Description 11/15/2022 Virtual Visit Haylie Wakefield, [facility] [address] [place] [address] (Wo rk) 11/15/2022 Virtual Visit IM/PedYane Muir MD [address] [facility] [address] (Wo rk) 03/03/2023 Virtual Visit Neurology Erlinda Barber MD 420 [facility] 295 [place], [place] [address] (Wo rk) documented as of this encounter Visit Diagnoses Not on filedocumented in this encounter Additional Health Concerns Assessment Noted Time PHQ-9 Depression Total Score: 4 04/12/2019 7:03 AM CDT documented as of this encounter Care Teams Quality Nurse Relationship Specialty Start Date End Date Doris Lai MD PCP - General 05/24/19 11/28/19 [address] [facility] [address] [place], [place] [phone] Chastity Montero MD Dermatology 09/23/14 420 [facility] 98 [place], [place] [address] Johnnie Alcocer MD Surgeon General Surgery 03/23/[address] [place], [place] [address] Danni Marcus, CHANDLER Personal Advocate & 01/09/1901/17 Liaison (PAL) Mtm, Ea Complex 04/23/19 Svetlana Osman, Pharmacist Pharmacotherapy 04/23/19 [facility] [address] [place] [address] Haylie Cheung, Pharmacist Pharmacist 09/11/19 [facility] [address] [place], [place] [phone] Galdino Valdez MD Assigned PCP 11/10/19 05/23/20 [address] [place], [place] [phone] documented as of this encounter
--- OUTSIDE RECORDS SUMMARY | 2022-06-15 12:57 | XMS_ITS | Encounter Summary ---
:1945 Author Organization [facility] Address [address] [place] [address] Care Team Providers Name Role Phone Chastity Montero MD Unavailable [phone] Johnnie Alcocer MD Unavailable Danni Marcus RN Unavailable Unavailable Mtm, Ea Complex Unavailable Unavailable Svetlana Osman [facility] Unavailable [phone] [facility] Unavailable [phone] Galdino Valdez MD Unavailable Galdino Valdez MD Primary Care Provider Jaiden Holcomb MD Primary Care Provider [phone] Kendall Joseph MD Unavailable Erlinda Barber MD Unavailable Jaiden Holcomb MD Unavailable [phone] Reason for Visit Reason Comments Other left ischium wound Encounter Details Date Type Department Care Team Description 11/29/2019 Office Visit - [facility] Patience Toussaint NP Pressure injury of left ischium, stage 4 (H); [facility] [address] Morbid obe sity with BMI of 50.0-59.9, adult (H); [facility] Hypoalbuminemia; [address] Feeding [facility] [address] [place] [address] [phone] Social History Tobacco Use Types Packs/Day Years [...] Sign Reading Time Taken Comments Blood Pressure 126/82 11/29/2019 1:55 PM CDT Pulse - - Temperature 36.6 ??C (97.9 ??F) 11/29/2019 1:55 PM CDT Respiratory Rate - - Oxygen Saturation - - Inhaled Oxygen Concentration - - Weight - - Height - - Body Mass Index - - documented in this encounter Progress Notes Edil Lara - 11/29/2019 2:00 PM CDT Charlette Brush is a [...] AVS by AVS Preference: Mail a copy. Will anyone else be joining your video visit? No Video-Visit Details Type of service: Video Visit Originating Location (pt. Location): Home Distant Location (provider location): [facility] [place] Platform used for Video Visit: Drug Response Dxbrenna Lara LPN Patience Toussaint NP - 11/29/2019 2:00 PM CDT Images from the original note were not included. Progress Notes by Patience Toussaint NP at 11/29/2019 2:00 PM Author: Patience Toussaint NP Service: -- Author Type: Nurse Practitioner Filed: 11/29/2019 2:29 PM Encounter Date: 11/29/2019 Status: Signed Curriculum Coach: Patience Toussaint NP (Nurse Practitioner) Follow up Vascular Visit Date of Service:11/29/2019 Date Last Seen: 11/28/2019; 11/28/2019 Chief Complaint: stage 4 left IT pressure injury Pt returns to [facility] with regards to their stage 4 left IT pressure injury; thisvisit is being conducted virtually (telephone or video visit) due to the Covid-19 pandemic. They arrive/on the phone today with Juanita ARTEAGA with [facility]. They are currently using aquacel ag; covering with tegaderm bordered foam to the wounds. This is being done by [facility] daily; should would benefit from two times a day wound cares but this is not possible as the pt is not able to change her dressing. Last MRI done 06/2019 was seen by ID and treated with 4 weeks of IV unasyn. She has a low air loss mattress. She has received her cushion just today. They are feeling well today. Denies fevers, chills. No shortness of breath. She has seen Dr. Biswas in the past and was told she was not a surgical candidate; I had her see Dr. Steward and he also told her she was not a surgical candidate due to her weight and sizeof the wound. The patient is interested in speaking with Dr. Huggins as she has treated her daughter for similar issues. She is focusing on protein; taking 1 protein bar daily and 1 protein shake. She has tried a wound vac in the past however this failed over and over again and would only maintain aseal for 1 hour; she is not willing to try this again Allergies: Cephalexin; Ciprofloxacin; Clindamycin; Lanolin; Lisinopril; Mupirocin; [...] by mouth daily., Disp: , Rfl: ? vbqcnumheyoe-ndrsixvz-sdwrad (CEROVITE SENIOR) tablet, Take 1 tablet by [...] Patient has appointment with Retina Specialist at [facility] on 01/11. 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 ? Morbid obesity (H) ? [...] Referral placed for Dr. Kajal Huggins at [facility] in [place] per patient request. She has contact [...] pink. Wound #1 Location: left IT Size: 5.5L x 5W x 4cmdepth. No sinus tract present, Wound base: red viable noundermining present. Wound is full thickness. There is copious drainage. Periwound: no denudement, erythema, induration, maceration or warmth. NOTE: wound assessment is done through either visual inspection from video call or [...] 3.3 (L) 06/04/2019 No results found for: [id number] Impression: No diagnosis found. 11/29/2019 left IT 08/13/2019 left IT Are any of these wounds new today: No; Location: na Assessment/Plan: 1. Debridement: na 2. Wound treatment: wound treatment will include irrigation and dressings to promote autolytic debridement which will include:was previously working with Dr. Steward for possible flap closure; he did notfeel she was a good candidate due to her weight and the size of the wound; Dr. Steward will no longer be working at [facility]; she has already been seen by Dr. Biswas for a secondy opinion; pt iswanting to see Dr. Huggins who has treated her daughter in the past; will continue with daily homecare; pt would benefit from two times a day wound cares but this is not possible; will continue witheither kerracel ag or aquacel ag; covered with bordered tegaderm foam dressing Stable 3. Edema: na. Stable 4. Nutrition: focus on diet and nutrition; focus on protein; I will have home care draw nutritionallabs 5. Offloading: has low air loss mattress; has new pressure relieving cushion to sit on Patient will follow up with me in 4 weeks for reevaluation. They were instructed to call the clinicsooner with any signs or symptoms of infection or any further questions/concerns. Answered all questions. Time spent on the phone/video chat 15 minutes Patience Toussaint DNP, RN, ORDERING MACHINE OPERATOR, CWOCN, CFCN, CLT [facility] [phone] Type of service: Video Visit Video Start and End Time : Originating Location (pt. Location): pt home Distant Location (provider location): [facility] [place] Mode of Communication: Video, Doximity This note was electronically signed by Patience Toussaint documented in this encounter Miscellaneous Notes Letter - Historical Provider - 12/31/2020 7:25 PM CDT Letter by Patience Toussaint NP at Author: Patience Toussaint NP Service: -- Author Type: -- Filed: Encounter Date: 11/29/2019 Status: (Other) 11/29/2019 [facility] Fax: Wound Dressing Rx and Order Form Customer Service: Order Status: New Order Verbal: Edil Patient Info: Name: Charlette Brush : 1945 Address: [facility] [address] Insurance Info: Primary: Payor: MEDICARE / Plan: MEDICARE A AND B / Product Type: Medicare / Secondary: BLUE CROSS [place] [id number] - (Medicare) Physician Info: Name: Patience Toussaint NP Dept Address/Phones: [facility], [address] [facility] [address] Lymphedema circumferential measurements (in cm): No [...] left ischium, stage 4 (H) Yes ? Morbid obesity with BMI of 50.0-59.9, adult (H) ? Hypoalbuminemia ? Feeding difficulties VASC Wound 05/15/19 Buttocks (Active) Pre Size Length 5.5 11/29/19 1400 Pre Size Width 5 11/29/19 1400 Pre Size Depth 4 11/29/19 1400 Pre Total Sq cm 40 11/01/19 1400 Drainage: Heavy Thickness: Full Duration of Need: 30 Days Supply: 30 Start Date: 11/29/2019 Starter Kit: Ancillary Kit (saline, gloves, gauze) Qualifying wound/Debridement Yes Dressing Type Brand Size Number of pieces Frequency of change Primary tegaderm bordered foam 7.5x8.75 30 Daily Note: If total out of pocket is more than $50.00 please contact the patient before processing order. OK to forward to covered supplier. Patient has been evaluated via virtual visit due to patient's high risk of johnathon COVID-19. New measurements may not be obtained due to this. The wound(s) that were previously prescribed dressing(s) are still active. There are no new wounds. The patient is at or near exhaustion of supplies. The wound care instructions are : Wound Care Instructions Every day home care [...] than this please contact our office at [phone]. Patience Toussaint DNP, RN, ORDERING MACHINE OPERATOR, [facility] [phone] Electronically Signed Physician: Patience Toussaint NP Date: 11/29/2019 Patient Instructions - HE - Patience Toussaint NP - 11/29/2019 2:00 PM CDT Images from the original note were not included. Patient Instructions by Patience Toussaint NP at 11/29/2019 2:00 PM Author: Patience Toussaint NP Service: -- Author Type: Nurse Practitioner Filed: 11/29/2019 1:52 PM Encounter Date: 11/29/2019 Status: Signed Curriculum Coach: Patience Toussaint NP (Nurse Practitioner) Continue home care Iban gage was reordered from [facility] Wound Care Instructions Every day home care [...] than this please contact our office at [phone]. Patience Toussaint DNP, RN, ORDERING MACHINE OPERATOR, [facility] [phone] You will need to reposition frequently; keep direct pressure off of the wound or reddened area Reposition Every 1-2 hours while in bed; left, right; supine; repeat Reposition Every 15 minutes while up in a chair; chair push ups Stand every 30 minutes while in a chair if able Obtain a seat cushion; can get a 4 high density foam at [facility]; or GeoMat or J-cushion from [employer]; or we can order a ROHO cushion if you qualify for this type of cushion 4 high density foam cushion GeoMat Cushion Nacho Cushion Roho Cushion [facility] [address] [place] [address] [place] [address] [place] [address] www.[employer] [facility] [address] [place] [place] [address] www.[employer].evocatal Yg Delacruz Www.[email or web address] [phone] [facility] [address] [place] [address] Chair Pushups Bed Positioning Addendum Note - Edil Lara - 11/29/2019 2:00 PM CDT Addendum Note by Edil Lara LPN at 11/29/2019 2:00 PM Author: Edil Lara LPN Service: -- Author Type: Licensed Nurse Filed: 11/29/2019 3:17 PM Encounter Date: 11/29/2019 Status: Signed Curriculum Coach: Edil Lara LPN (Licensed Nurse) Addended by: EDIL KELLOGG on: 11/29/2019 03:17 PM Modules accepted: Orders documented in this encounter Plan of Treatment Upcoming Encounters Date Type Specialty Care Team Description 11/15/2022 Virtual Visit Pharm Haylie Gonzalez, [facility] [address] [facility] [facility] [address] [facility] [address] [place] [phone] (Wo rk) 11/15/2022 Virtual [place] [address] [place] [address] [place] [phone] (Wo rk) 03/03/2023 Virtual Visit Neurology Erlinda Barber MD [address] [facility] [address] [place], [place] [address] (Wo rk) documented as of this encounter [...] documented as of this encounter Care Teams Die Mounter Relationship Specialty Start Date End Date Galdino Valdez MD PCP - General Family Practice 11/29/19 02/12/20 [address] [place], [place] [phone] Jaiden Holcomb PCP - General Internal Medicine 02/13/2010/03 MD Jayesh [address] [facility] [address] [place], [place] [phone] Chastity Montero MD Dermatology 09/23/14 [address] [facility] [address] [place] [address] Johnnie Alcocer MD Surgeon General Surgery 03/23/[address] [place], [place] [id number] Danni Marcus, CHANDLER Personal Advocate & 01/09/1901/17 Liaison (PAL) Fernando, Ea Complex 04/23/19 Svetlana Osman, Pharmacist Pharmacotherapy 04/23/[address] [facility] [address] [place] [address] Haylie Cheung, Pharmacist Pharmacist 09/11/[address] [facility] [address] [facility] [facility] [facility] [address] [facility] [address] [place], [place] [phone] Galdino Valdez MD Assigned PCP 11/10/19 05/23/20 [address] [place], [place] [phone] Opal, Assigned Sleep 05/08/20 03/27/21 Kendall Meehan MD Provider [address] [place] [address] Erlinda Barber MD Assigned Neuroscience 05/08/20 01/26/21 [address] [facility] [address] [place] [address] Jaiden Holcomb Assigned PCP 05/24/20 MD Jayesh [address] [place] [address] documented as of this encounter
--- OUTSIDE RECORDS SUMMARY | 2022-06-15 12:58 | XMS_ITS | Encounter Summary ---
:1945 Author Organization [facility] Address [address] [place] [address] Care Team Providers Name Role Phone Chastity Montero MD Unavailable [phone] Johnnie Alcocer MD Unavailable Lucero Stevenson MD Unavailable [phone] Danni Marcus RN Unavailable Unavailable Mtkinsey, Ea Complex Unavailable Unavailable Svetlana Osman [facility] Unavailable [phone] Haylie Cheung [facility] Unavailable [phone] Doris Lai MD Primary Care Provider Reason for Visit Reason Onset Date Comments INR RESULTS 10/01/2019 Encounter Details Date Type Department Care Team Description 10/01/[address] [facility] Doris Agarwal MD INR RESULTS [place] [address] [facility] [address] [facility] [place] [address] [address] [place] [address] [phone] Social History Tobacco Use Types Packs/Day Years [...] 05/03/2021 organizations such as islam groups, unions, fraNanushka or athletic groups, or school groups? How [...] this encounter Miscellaneous Notes Telephone Encounter - Fadumo Davies RN - 10/01/2019 12:53 PM CDT ANTICOAGULATION MANAGEMENT Patient Name: Charlette Brush Date: 10/01/2019 ASSESSMENT /SUBJECTIVE: Today's INR result of 2.4 is therapeutic. Goal INR of 2.0-3.0 ??? Warfarin dose taken: Warfarin taken as previously instructed ??? Diet: No new diet changes affecting INR ??? Medication changes/ interactions: No new medications/supplements affecting INR ??? Previous INR: Therapeutic ??? S/S of bleeding or thromboembolism: No ??? New injury or illness: No ??? Upcoming surgery, procedure or cardioversion: No ??? Additional findings: None PLAN: Spoke with K[facility] at [facility] regarding INR result and instructed: Warfarin Dosing Instructions: Continue your current warfarin dose Instructed patient to follow up no later than: 4 weeks Orders given to Homecare nurse/facility to recheck Education provided: Alesha Roger at [facility] verbalizes understanding and agrees to warfarin dosing plan. Instructed to call the Anticoagulation Clinic for any changes, questions or concerns. 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] jail current use of 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 [Z79.01] Anticoagulation Episode Summary INR check location: Preferred lab: EXTERNAL LAB Send INR reminders to: [facility] Comments: 3mg & 10mg tabs - devaughn dose / [facility] qod - Kana [phone] / APPT CARD ONLY Anticoagulation Care Providers Provider Role Specialty Phone number Lucero Stevenson MD Internal Medicine [phone] documented in this encounter Plan of Treatment Upcoming Encounters Date Type Specialty Care Team Description 11/15/2022 Virtual Visit Pharm Haylie Gonzalez, [facility] [address] [place] [address] [place] [phone] (Wo rk) 11/15/2022 Virtual Visit IM/Yane Mathias MD [address] [place] [address] [place] [phone] (Wo rk) 03/03/2023 Virtual Visit Neurology Erlinda Barber MD [address] [facility] 295 [place], [place] [address] (Wo rk) documented as of this encounter Visit Diagnoses Diagnosis 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 embolism 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 card 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 current use of anticoagulant t herapy documented in this encounter Additional Health Concerns Assessment Noted Time PHQ-9 Depression Total Score: 4 04/12/2019 7:03 AM CDT documented as of this encounter Care Teams Electrician Chief Relationship Specialty Start Date End Date Doris Lai MD PCP - General 05/24/19 11/28/[address] [place] [address] [place] [id number] Chastity Montero MD Dermatology 09/23/14 [address] [facility] [address] [place], [place] [address] Johnnie Alcocer MD Surgeon General Surgery 03/23/[address] [place], [place] [address] Lucero Stevenson Assigned PCP 06/17/18 11/09/19 MD Annetta [facility] [address] [place] [address] Danni Marcus, CHANDLER Personal Advocate & 01/09/1901/17 Liaison (PAL) Fernando, Ea Complex 04/23/19 Svetlana Osman, Pharmacist Pharmacotherapy 04/23/19 [place] [address] [place] [address] Haylie Cheung, Pharmacist Pharmacist 09/11/19 [facility] [address] [place] [address] documented as of this encounter
--- OUTSIDE RECORDS SUMMARY | 2022-06-15 12:58 | XMS_ITS | Encounter Summary ---
:1945 Author Organization [facility] Address [address] [place] [address] Care Team Providers Name Role Phone Chastity Montero MD Unavailable [phone] Johnnie Alcocer MD Unavailable Lucero Stevenson MD Unavailable Danni Marcus RN Unavailable Unavailable Mtkinsey, Ea Complex Unavailable Unavailable Svetlana Osman [facility] Unavailable [phone] Haylie Cheung [facility] Unavailable [phone] Doris Lai MD Primary Care Provider Reason for Visit Reason Onset Date Comments INR RESULTS 09/17/2019 Encounter Details Date Type Department Care Team Description 09/17/2019 Telephone [facility] Doris Agarwal MD INR RESULTS [place] [address] [facility] [address] [facility] [place] [address] [address] [place] [address] [phone] Social History Tobacco Use Types Packs/Day Years [...] 05/03/2021 organizations such as anabaptism groups, unions, fraCavis microcaps or athletic groups, or school groups? How [...] Telephone Encounter - Marimar Bertrand RN - 09/17/2019 1:19 PM CST ANTICOAGULATION MANAGEMENT Patient Name: Charlette Brush Date: 09/17/2019 ASSESSMENT /SUBJECTIVE: Today's INR result of 2.4 [...] Additional findings: None PLAN: Spoke with Kana ( RN) regarding INR result and instructed: Warfarin Dosing Instructions: Continue your current warfarin dose of 13mg Wed; 10mg all other days Instructed patient to follow up no later than: 2 weeks Orders given to Homecare nurse/facility to recheck Education provided: No Kana verbalizes understanding and agrees to warfarin dosing plan. Instructed to call the Anticoagulation Clinic for any changes, questions or concerns. 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 current use of 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 [Z79.01] Anticoagulation Episode Summary INR check location: Preferred lab: EXTERNAL LAB Send INR reminders to: [facility] Comments: 3mg & 10mg tabs - devaughn dose / [facility] qod - [facility] [phone] / APPT CARD ONLY Anticoagulation Care Providers Provider Role Specialty Phone number Lucero Stevenson MD Internal Medicine [phone] DOCTORAL FELLOW documented in this encounter Plan of Treatment Upcoming Encounters Date Type Specialty Care Team Description 11/15/2022 Virtual Visit Pharm D Haylie Cheung, [facility] [address] [place] [address] (Lena max) 11/15/2022 Virtual Visit [place] [address] [place] [address] [place] [address] (Lena max) 03/03/2023 Virtual Visit Neurology Erlinda Barber MD [address] [facility] 295 [place] [address] (Wo winter) documented as of this encounter Procedures Procedure Name Priority Date/Time Associated Diagnosis Comme nts INR Routine 09/17/2019 Results for thi s procedure are in the resu lts section. 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 current use of anticoagulant t herapy documented in this encounter Additional Health Concerns Assessment Noted Time PHQ-9 Depression Total Score: 4 04/12/2019 7:03 AM CDT documented as of this encounter Care Teams Security Vehicle Patrol Officer Relationship Specialty Start Date End Date Doris Lai MD PCP - General 05/24/19 11/28/19 [address] [facility] [place] [address] Chastity Montero MD Dermatology 09/23/14 [address] [facility] 98 [place], [place] [address] Johnnie Alcocer MD Surgeon General Surgery 03/23/[address] [place], [place] [address] Lucero Stevenson Assigned PCP 06/17/18 11/09/19 MD Annetta [address] [id number] Danni Marcus, CHANDLER Personal Advocate & 01/09/1901/17 Liaison (PAL) Fernando, Ea Complex 04/23/19 Svetlana Osman, Pharmacist Pharmacotherapy 04/23/19 [facility] [address] [place], [place] [phone] Haylie Cheung, Pharmacist Pharmacist 09/11/19 [facility] [address] [place], [place] [phone] documented as of this encounter
--- OUTSIDE RECORDS SUMMARY | 2022-06-15 12:58 | XMS_ITS | Encounter Summary ---
:1945 Author Organization [facility] Address [address] [place] [address] Care Team Providers Name Role Phone Chastity Montero MD Unavailable [phone] Johnnie Alcocer MD Unavailable Lucero Stevenson MD Unavailable Danni Marcus RN Unavailable Unavailable Mtm, Ea Complex Unavailable Unavailable Svetlana Osman [facility] Unavailable [phone] Haylie Cheung [facility] Unavailable [phone] Doris Lai MD Primary Care Provider Reason for Visit Reason Onset Date Comments Dme 09/12/2019 Ankle brace and seat cushions Encounter Details Date Type Department Care Team Description 09/12/[address] [facility] Galdino Valdez MD Dme (Ankle brace and Clinic Max [id number] seat cushions) [address] [address] [address] [place] [address] (Work) [phone] Social History Tobacco Use Types Packs/Day Years [...] 05/03/2021 organizations such as nondenominational groups, unions, fraWillCall or athletic groups, or school groups? How [...] Telephone Encounter - Danni Marcus RN - 11/06/2019 3:49 PM CDT Call received from Yancy at [facility] and the cushion is on order. They have received all necessary paperwork from the wound care clinic. The cushion should arrive on 11/18. [facility] will notify patient also. Ashli Marcus RN Telephone Encounter - Jolanta Redyd RN - 10/16/2019 8:31 AM CDT Call from aKte with [facility] stating that patient had a tele-visit with wound care clinic yesterday and she is waiting for the paperwork to come back from them so she can review. She will give us an update once the paperwork is received. The paperwork will be completed by Dr. Steward at the [facility]. She can be reached at [phone] Jolanta Reddy RN Message handled by Nurse Triage. Telephone Encounter - Danni Marcus RN - 10/15/2019 12:25 PM CDT LMTCB to check on status of chair cushions. Ashli Marcus RN Telephone Encounter - Danni Marcus RN - 10/03/2019 3:22 PM CDT I notified patient of this information. She is wondering what is the cost of the cushion? Can this be submitted to insurance to see what they may cover, without patient having to pay anything. Patient has an appointment with the wound doctor on 10/14. If the insurance will not cover the cushion, can Kate Emerson provide patient with the information about the cushion, and she will ask the woundprovider to appeal the decision by the insurance. LM for Kate Emerson with [facility] with the questions noted above. I have asked her to contact patient with this information. Ashli Marcus RN Telephone Encounter - Danni Marcus RN - 10/03/2019 2:28 PM CDT Kate Emerson called back. She reports that she is having difficulty obtaining a cushion with insurance coverage. Medicare will not cover a new cushion because hers is less than two years old. Supplemental would review the request, but patient may have to pay out of pocket for this, and patient doesn't want to do this. Kate is waiting for one more documentation piece, but at this time it doesn't appear to her that insurance will cover this. Ashli Marcus RN Telephone Encounter - Danni Marcus RN - 10/03/2019 12:00 PM CDT LMTCB for Kate Emerson to check on status of chair cushion. Ashli Marcus RN Telephone Encounter - Danni Marcus RN - 09/26/2019 9:12 AM CDT Patient updated on process to obtain seat cushion. She also had heard from Kate Emerson on Monday. Patient had CPAP checked yesterday and was told that it is functioning well. They did recommend she consider getting a new machine in the near future due to the age of her current machine. Patient will be seeing [facility] today to be fit for the ankle brace. No further questions. Will call back if any other questions or concerns. I will call Kate Emerson in one week to get an update on progress with the seat cushion. Ashli Marcus RN Telephone Encounter - Danni Marcus RN - 09/23/2019 12:02 PM CDT I spoke with Kate Emerson, and she is recommending an Air seat cushion due to stage 4 pressure ulcer. She has to check with patient's insurance to see about coverage for this type of cushion. This is being processed by the office now. They will contact Dr Steward also at the Wound clinic to get Wound care notes. Ashli Marcus RN Telephone Encounter - Danni Marcus RN - 09/23/2019 11:33 AM CDT Patient reports that she received a call from Kate Emerson with [facility] after 4pm on Monday. Patient states that Kate was checking to see if she received paperwork from the clinic. LM for Kate to inquire if there was anything else she needed from us. I faxed order from the wound clinic, and office appointment note on 09/15. Advised patient that I will call her later in the week to check on the status of the seat cushions with her. Ashli Marcus RN Telephone Encounter - Danni Marcus RN - 09/16/2019 3:06 PM CST Kate Emerson called back from [employer] [employer], and she needs a request from clinic to assess patient anddetermine what type of chair cushion is most appropriate to treat the Stage 4 ischial ulcer. Will need last office appointments from Vascular center and office appointment with Dr. Valdez. I called patient and advised her of how to proceed with obtaining cushions, and she is in agreement with Kate Emerson coming to her home to do this assessment. She gave me verbal approval to send medical records from the Vascular office appointment and the appointment with Dr Valdez. I faxed this information to [facility]-attn Kate Emerson at [phone]. I advised patient to send me a My Chart message if she doesn't hear from Kate in one week. Ashli Marcus RN TERIA AIDE Telephone Encounter - Danni Marcus RN - 09/16/2019 11:35 AM CST LMTCB for Kate Emerson at [facility] to inquire about cushion. Ashli Marcus RN TERIA AIDE Telephone Encounter - Danni Marcus RN - 09/12/2019 3:34 PM CST Patient elects to get ankle brace from [facility]. Order faxed, and she was notified to call them to set up an appointment for a fitting and was given the phone number to schedule an appointment. (See My Chart Message) TERIA AIDE Telephone Encounter - Jolanta Reddy RN - 09/12/2019 1:52 PM CST Received a call from [facility] ([phone]) stating that they have not been working on the cushion order. Jolanta Reddy RN Message handled by Nurse Triage. TERIA AIDE Telephone Encounter - Danni Marcus RN - 09/12/2019 11:57 AM CST Eddie called back and they do not do home visits. My Chart message sent to patient to see which Orthotics she would like to use? Ashli Marcus RN TERIA AIDE Telephone Encounter - Danni Marcus RN - 09/12/2019 10:59 AM CST Patient needs a new ankle brace. Order placed for this at office appointment yesterday. She got this thru [facility] in [place] two years ago, and thought they came to her home todo a fitting. I called and LM at [facility] to verify if they do home fittings. [facility] phone number is [phone]. I also called [facility], and they do not do home fittings, unless patient has care thru [facility]. Needs assistance obtaining a new cushion for her seat thru [employer] ([phone]) Gel-T cushion Model #[id number]. Need two cushions. Thinks she got these thru [place] [facility] two years ago. She now sees [facility] wound clinic. I called [employer], and they do not distribute cushions to patients. They only work with a medical distributor. May be able to make an exception, if patient wants to pay ovalle. LM at [facility] wound clinic to see if they are working on this for patient. I also called the [facility], and they refer these orders to [facility] -Kate Emerson ([phone]). If the [facility] wound clinic isn't working on this order, will contact [facility]. Ashli Marcus RN TERIA AIDE documented in this encounter Plan of Treatment Upcoming Encounters Date Type Specialty Care Team Description 11/15/2022 Virtual Visit Pharm Haylie Gonzalez, [facility] [address] [place] [address] (Lena max) 11/15/2022 Virtual Visit IM/Peds Yane Barraza MD [address] [facility] [facility] [facility] [place] [address] (Wo rk) 03/03/2023 Virtual Visit Neurology Erlinda Barber MD [address] [address] [place] [address] (Wo rk) documented as of this encounter Visit Diagnoses Not on filedocumented in this encounter Additional Health Concerns Assessment Noted Time PHQ-9 Depression Total Score: 4 04/12/2019 7:03 AM CDT documented as of this encounter Care Teams Seo Marketing Specialist Relationship Specialty Start Date End Date Doris Lai MD PCP - General 05/24/19 11/28/19 [address] [place], [place] [id number] Chastity Montero MD Dermatology 09/23/14 [address] [facility] [address] [place], [place] [address] Johnnie Alcocer MD Surgeon General Surgery 03/23/[address] [place], [place] [address] Lucero Stevenson Assigned PCP 06/17/18 11/09/[address] MD Annetta [address] [id number] Danni Marcus, CHANDLER Personal Advocate & 01/09/1901/17 Liaison (PAL) Fernando, Ea Complex 04/23/19 Svetlana Osman, Pharmacist Pharmacotherapy 04/23/19 [facility] [address] [place], [place] [id number] Haylie Cheung, Pharmacist Pharmacist 09/11/19 [facility] [address] [place], [place] [id number] documented as of this encounter
--- OUTSIDE RECORDS SUMMARY | 2022-06-15 12:58 | XMS_ITS | Encounter Summary ---
:1945 Author Organization [place] Address [facility] [place] [address] Care Team Providers Name Role Phone Chastity Montero MD Unavailable [phone] Johnnie Alcocer MD Unavailable Lucero Stevenson MD Unavailable [phone] Danni Marcus RN Unavailable Unavailable Mtm, Ea Complex Unavailable Unavailable Svetlana Osman [facility] Unavailable [phone] Haylie Cheung [facility] Unavailable [phone] Galdino Valdez MD Unavailable Galdino Valdez MD Primary Care Provider Jaiden Holcomb MD Primary Care Provider [phone] Kendall Joseph MD Unavailable Erlinda Barber MD Unavailable Jaiden Holcomb MD Unavailable [phone] Doris Lai MD Primary Care Provider Reason for Visit Reason Comments Other Appointment cancellation Encounter Details Date Type Department Care Team Description 10/04/2019 [facility] Aditi Umanzor Othe r (Appointment [facility] RN cancellation ) [address] [address] Social History Tobacco Use Types [...] Miscellaneous Notes Telephone Encounter - Aditi Umanzor - 10/04/2019 10:14 AM CDT Spoke with Charlette and let her know about the clinic closure and the need to cancel her appointment with Dr. Steward for 10/14. Charlette has [facility] and a nurse Michelle was out to see her today who mentioned that there was some slough in the wound bed. Placed call to Michelle at [facility] and she said there is only a small amount of slough. Michelle seesher daily for wound care. She will monitor the wound over the next few weeks and if the slough begins to worsen in the wound bed, she will call clinic back with update. Could consider at that time an enzymatic debrider such as Santyl. If that is necessary, Dr. Steward will be contacted for order. documented in this encounter Plan of Treatment Upcoming Encounters Date Type Specialty Care Team Description 11/15/2022 Virtual Visit Pharm Haylie Gonzalez, [facility] [address] [facility] [address] [place] [id number] (Wo rk) 11/15/2022 Virtual Visit IM/Peds Yane Barraza MD [address] [place] [address] [address] [place] [id number] (Wo rk) 03/03/2023 Virtual Visit Neurology Erlinda Barber MD [address] [facility] [address] [place], [place] [address] (Wo rk) documented as of this encounter Visit Diagnoses Not on filedocumented in this encounter Additional Health Concerns Assessment Noted Time PHQ-9 Depression Total Score: 4 04/12/2019 7:03 AM CDT documented as of this encounter Care Teams Health And Safety Instructor Relationship Specialty Start Date End Date Galdino Valdez MD PCP - General Family Practice 11/29/19 02/12/20 [address] [place], [place] [phone] Jaiden Holcomb PCP - General Internal Medicine 02/13/2010/03 MD Jayesh [address] [place] [address] [address] [place] [phone] Doris Lai MD PCP - General 05/24/19 11/28/[address] [place] [address] [address] [place] [phone] Chastity Montero MD Dermatology 09/23/14 [address] [facility] [address] [place], [place] [address] Johnnie Alcocer MD Surgeon General Surgery 9/7/[address] [place] [address] Lucero Stevenson, Assigned PCP 06/17/18 MD TOÑO LOPEZ [address] [place], [place] [phone] Danni Marcus, RN Personal Advocate & 01/09/1901/17 Liaison (PAL) Fernando, Ea Complex 04/23/19 Svetlana Osman, Pharmacist Pharmacotherapy 04/23/19 [facility] [address] [facility] [address] [place], [place] [phone] Haylie Cheung, Pharmacist Pharmacist 09/11/19 [facility] [address] [facility] [address] [place], [place] [phone] Galdino Valdez MD Assigned PCP 11/10/19 05/23/20 [address] [place], [place] [phone] Opal, Assigned Sleep 05/08/20 03/27/21 Kendall Meehan MD Provider [address] [place], [place] [phone] Erlinda Barber MD Assigned Neuroscience 05/08/20 01/26/21 [address] [facility] [address] Provider [place], [place] [phone] Jaiden Holcomb Assigned PCP 05/24/20 MD Jayesh [address] [place] [address] documented as of this encounter
--- OUTSIDE RECORDS SUMMARY | 2022-06-15 12:58 | XMS_ITS | Encounter Summary ---
:1945 Author Organization [facility] Address [address] [facility] [place] [address] Care Team Providers Name Role Phone Chastity Montero MD Unavailable [phone] Johnnie Alcocer MD Unavailable Lucero Stevenson MD Unavailable [phone] Danni Marcus RN Unavailable Unavailable Mtm, Ea Complex Unavailable Unavailable Svetlana Osman [facility] Unavailable [phone] Haylie Cheung [facility] Unavailable [phone] Doris Lai MD Primary Care Provider Reason for Visit Reason Comments RECHECK Encounter Details Date Type Department Care Team Description 09/23/2019 Office Visit [facility] Pusvivianavidyasagar, CEFERINO o n CPAP Sleep Center Kendall Meehan, (Prima ry Dx) Emigdio PATEL [address] [facility] [address] [place] [address] [address] [place] [address] [place], [place] [phone] (Wo rk) [id number] [phone] Social History Tobacco Use Types Packs/Day Years [...] 05/03/2021 organizations such as confucianism groups, unions, Total Attorneys or athletic groups, or school groups? How [...] PM CDT documented as of this encounter Last Filed Vital Signs Vital Sign Reading Time Taken Comments Blood Pressure 154/92 09/23/2019 12:40 PM CDT Pulse 65 09/23/2019 12:40 PM CDT Temperature - - Respiratory Rate - - Oxygen Saturation 93% 09/23/2019 12:40 PM CDT Inhaled Oxygen Concentration - - Weight 159.7 kg (352 lb) 09/23/2019 12:40 PM CDT Height 170.2 cm (5' 7.01) 09/23/2019 12:40 PM CDT Body Mass Index 55.12 09/23/2019 12:40 PM CDT documented in this encounter Patient Instructions Patient InstructionsKajal German - 09/23/2019 12:30 PM CDT Your blood pressure was checked while you were in clinic today. Please read the guidelines below about what these numbers mean and what you should do about them. Your systolic blood pressure is the top number. This is the pressure when the heart is pumping. Your diastolic blood pressure is the bottom number. This is the pressure in between beats. If your systolic blood pressure is less than 120 and your diastolic blood pressure is less than 80, then your blood pressure is normal. There is nothing more that you need to do about it If your systolic blood pressure is 120-139 or your diastolic blood pressure is 80-89, your blood pressure may be higher than it should be. You should have your blood pressure re-checked within a year by a primary care provider. If your systolic blood pressure is 140 or greater or your diastolic blood pressure is 90 or greater,you may have high blood pressure. High blood pressure is treatable, but if left untreated over time it can put you at risk for heart attack, stroke, or kidney failure. You should have your blood pressure re- checked by a primary care provider within the next four weeks. Your BMI is Body mass index is 55.12 kg/m??. Weight management is a personal decision. [...] is considered obese. More than two-thirds of [place] adults are considered overweight or obese. Being [...] employer, local community center, or [employer] club. Weight management plan: Patient was referred to their PCP to discuss a diet and exercise plan. documented in this encounter Progress Notes Kendall Joseph MD - 09/23/2019 12:30 PM CDT SLEEP CLINIC FOLLOW UP VISIT: Date of visit: CPAP Follow Up??Follow up ceferino Charlette Brush comes in today for follow-up of their severe sleep apnea, managed with CPAP. Her sleep study from 12/08/2011 showed an apnea-hypopnea index of 45.6 per hour and RDI of 74.8 per hour. ?? Overall, she rates the experience with PAP as 10 (0 poor, 10 great). The mask is comfortable. The mask is not leaking. She is not snoring with the mask on. She is not having gasp arousals. She is not having significant oral/nasal dryness. The pressure settings are comfortable. ?? Bedtime is typically midnight. Usually it takes about 15 minutes to fall asleep with the mask on. Wake time is typically 9 am. Patient is using PAP therapy 7-8 hours per night. The patient is usually getting 8 hours of sleep per night. ?? She does feel rested in the morning. ?? Total score - Madison: 1 (01/20/2017 11:00 AM) ? CPAP 11 cmH2O download: total days of use. 0 nonuse days. 100% days with >4 hours use. Average use 7 hours 24 minutes per day. AHI 0.3. ?? , Compliance download for the past 1 month shows that she has used device for 30 out of 30 days withan average use of 8 hours and 36 minutes on the days used. Residual AHI was 0.1/h. She is being treated with fixed pressure setting at 11 cm water. There was no evidence of significant air leak. Kendall Joseph MD - 09/23/2019 12:30 PM CDT SLEEP CLINIC FOLLOW UP VISIT: Date of visit: 09/23/2019 Purpose of visit: Follow-up of CEFERINO, review CPAP compliance Charlette Brush comes in today for follow-up of severe sleep apnea, managed with CPAP. Her sleep study from 12/08/2011 showed an apnea-hypopnea index of 45.6 per hour and RDI of 74.8 per hour. She was last seen in the sleep clinic on January 20, 2017. She then weighed 406 lb. She lost significant weight since her last sleep clinic visit. Current weight is 352 pounds. DME: [facility] She is currently being treated with CPAP with fixed pressure setting at 11 cm water. She reports using the CPAP regularly during sleep. Denies any interface concerns. There are no reports of snoring orawakenings due to gasping with the CPAP use. The pressure settings are comfortable. The patient is usually getting 8 hours of sleep per night. Madison sleepiness score:0/24?? Compliance download for the past 1 month shows that she has used device for 30 out of 30 days with an average use of 8 hours and 36 minutes on the days used. Residual AHI was 0.1/h. There was no evidence of significant air leak. Current meds: Current Outpatient Medications Medication Sig Dispense Refill [...] tablet by mouth daily ??? nystatin (MYCOSTATIN) 288749 UNIT/GM external cream Apply topically daily as needed (irritation)90 g 0 ??? nystatin (NYSTOP) 387587 UNIT/GM external powder APPLY TOPICALLY TO THE AFFECTED AREA BENEATH BILATERAL BREAST/GROIN FOLDS TWICE DAILY UNTIL RESOLVED. 180 g 0 ??? order for DME Equipment being ordered: Bariatric 4-wheeled walker Seat width needs to be 20 inches or greater Handlebar width needs to be 22 inches or greater 1 each 0 ??? triamcinolone (KENALOG) 0.1 % external ointment Apply topically 2 times daily as needed for irritation 45 g 0 ??? warfarin ANTICOAGULANT (COUMADIN) 10 MG tablet Take 1 tablet (10 mg) daily as directed. Adjust dose per INR results. 90 tablet 1 Problem list: Patient Active Problem List Diagnosis ??? Essential hypertension, benign ??? Morbid obesity -- BMI 55.6 ??? CEFERINO on CPAP ??? CARDIOVASCULAR SCREENING; LDL GOAL LESS THAN 130 ??? Dermatitis, stasis ??? Health Assisted ??? Binge eating ??? Eczema ??? Vitamin D deficiency ??? 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 Pressure injury of left buttock, stage 4 (H) ??? Physical deconditioning ??? Lymphedema of both lower extremities ??? 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 Macular degeneration (senile) of retina ??? Corneal epithelial and basement membrane dystrophy ??? Nuclear sclerosis of both eyes ??? Cortical age-related cataract, both eyes ??? Cataract ??? Injury of sciatic nerve ??? Myopia ??? Microscopic hematuria ??? Seizure (H) ??? Lower extremity weakness ??? Anxiety ??? Adjustment disorder with depressed mood ??? Paroxysmal atrial fibrillation (H) ??? Dysesthesia ??? Dermatitis ??? Foot drop, left ??? Iron deficiency anemia, unspecified iron deficiency anemia type ??? Pressure ulcer of ischium, left, stage IV (H) Past medical history: Past Medical History: Diagnosis Date ??? BENIGN [...] 10/19/2017 ??? Wound, open coccyx L Past surgical history: Past Surgical History: Procedure Laterality Date ??? CHOLECYSTECTOMY, OPEN 1970 ??? COLONOSCOPY N/A 01/13/2015 Procedure: COLONOSCOPY; Surgeon: Jose Juan Castaneda MD; Location: OR ??? PHACOEMULSIFICATION CLEAR CORNEA WITH STANDARD INTRAOCULAR LENS IMPLANT Left 01/22/2019 Procedure: LEFT EYE CATARACT EXTRACTION WITH INTRAOCULAR LENS IMPLANTATION; Surgeon: Bernabe Crespo MD; Location: [facility] ??? PHACOEMULSIFICATION CLEAR CORNEA WITH STANDARD INTRAOCULAR LENS IMPLANT Right 02/20/2019 Procedure: RIGHT CATARACT EXTRACTION WITH INTRAOCULAR LENS IMPLANTATION; Surgeon: Bernabe Crespo MD; Location: [facility] ? ? TONSILLECTOMY & ADENOIDECTOMY Allergies: Allergies Allergen Reactions ??? Cephalexin Hives Keflex - hives ??? Ciprofloxacin Developed rash while on Cipro and Clindamycin ??? Clindamycin Developed rash while taking Clindamycin and Cipro ??? Lanolin Other (See Comments) skin irritation ??? Lisinopril Cough ??? Neomycin Other (See Comments) skin irritation ??? Penicillins Hives ??? Bactroban [Mupirocin Calcium] Rash ??? Mupirocin Rash and Unknown Social history: Social History Tobacco Use ??? Smoking status: Never Smoker ??? Smokeless tobacco: Never Used Substance Use Topics ??? Alcohol use: No Frequency: Never ??? Drug use: No Family history: Family History Problem Relation Age of Onset [...] ??? Macular Degeneration No family hx of Exam: BP (!) 154/92 Pulse 65 Ht 1.702 m (5' 7.01) Wt (!) 159.7 kg (352 lb) SpO2 93% BMI 55.12 kg/m?? General appearance: in no apparent distress Pt is dressed casually, cooperative with good eye contact. Speech is spontaneous with regular rate and volume. Mood: euthymic; affect congruent with full range and intensity. Sensorium: awake, alert and oriented to person, place, time, and situation. Assessment/Plan: Severe CEFERINO: Patient reports adequate compliance with CPAP treatment and reports positive benefits with the device use. Based on compliance measures, CEFERINO is well controlled with CPAP at the current pressure settings. At her request, I have provided her with prescription for replacement CPAP equipment with pressure setting at 11 cm water. I discussed with her that as she loses more weight she may have difficulty tolerating the current pressure settings, or develops symptoms of aerophagia which were all explained and in that case she wasinstructed get back to me so that we can lower the pressure settings on her CPAP. A copy of the clinic visit note from today and the DME orders will be faxed to [facility]. Recommend her to continue using the device regularly during sleep including during naps and instructed to get supplies regularly replaced. She will follow up in 8- 10 weeks after obtaining replacement device, when the compliance measures will be reviewed. HTN: She is currently being treated with atenolol, Lasix and losartan. Her blood pressure was elevated today. She was instructed to monitor the blood pressure and follow-up with her primary care provider for optimizing the management of hypertension. Obesity: We discussed weight management with diet and exercise. Patient was strongly advised to avoid driving, operating any heavy machinery or other hazardous situations while drowsy or sleepy. Patient was counseled on the importance of driving while alert, to lung puller if drowsy, or nap before getting into the vehicle if sleepy. The above note was dictated using voice recognition software. Although reviewed after completion, some word and grammatical error may remain . Please contact the author for any clarifications. I spent a total of 15 minutes face to face with Charlette Brush during today's office visit. Over 50% of this time was spent counseling the patient and coordinating care CEFERINO, CPAP treatment, going overPAP download/sleep study, weight management. Kendall Joseph MD Superintendent Institutionnitrogen operator, Division of Pulmonary/Sleep Medicine [facility]. ? documented in this encounter Nursing Notes Kajal German - 09/23/2019 12:30 PM CDT Chief Complaint Patient presents with ??? RECHECK Initial BP (!) 154/92 Pulse 65 Ht 1.702 m (5' 7.01) Wt (!) 159.7 kg (352 lb) SpO2 93% BMI55.12 kg/m?? Estimated body mass index is 55.12 kg/m?? as calculated from the following: Height as of this encounter: 1.702 m (5' 7.01). Weight as of this encounter: 159.7 kg (352 lb). Medication Reconciliation: complete DME: yes respironic 560 autopap ESS 0 Kajal German - 09/23/2019 12:30 PM CDT Charlette would like to use [facility] again for replacement machine. She was initially setup on cpap with them, but had to move to another vendor as was on Medicare insurance. She will obtain replacement machine through [facility]. documented in this encounter Plan of Treatment Upcoming Encounters Date Type Specialty Care Team Description 11/15/2022 Virtual Visit Pharm D Haylie Cheung, [facility] [address] [place] [id number] (Wo rk) 11/15/2022 Virtual Visit IM/Peds Yane Barraza MD [address] [facility] [place] [address] (Wo rk) 03/03/2023 Virtual Visit Neurology Erlinda Barber MD [address] [place] [address] [address] [place] [address] (Wo rk) documented as of this encounter Visit Diagnoses Diagnosis CEFERINO on CPAP - Primary Obstructive sleep apnea (adult) (pediatr ic) documented in this encounter Additional Health Concerns Assessment Noted Time PHQ-9 Depression Total Score: 4 04/12/2019 7:03 AM CDT documented as of this encounter Care Teams Sitecore Developer Relationship Specialty Start Date End Date Doris Lai MD PCP - General 05/24/19 11/28/19 [address] [facility] [place] [id number] Chastity Montero MD Dermatology 09/23/[address] [place] [address] [address] [place], [place] [address] Johnnie Alcocer MD Surgeon General Surgery 03/23/[address] [place], [place] [phone] Lucero Stevenson Assigned PCP 06/17/18 11/09/19 MD Annetta [facility] [address] [place], [place] [phone] Danni Marcus, CHANDLER Personal Advocate & 01/09/1901/17 Liaison (PAL) Fernando, Ea Complex 04/23/19 Svetlana Osman, Pharmacist Pharmacotherapy 04/23/19 [facility] [address] [place] [address] Haylie Cheung, Pharmacist Pharmacist 09/11/19 [facility] [address] [place] [id number] documented as of this encounter
--- OUTSIDE RECORDS SUMMARY | 2022-06-15 12:58 | XMS_ITS | Encounter Summary ---
:1945 Author Organization [employer] Address [address] [place] [address] Care Team Providers Name Role Phone Chastity Montero MD Unavailable [phone] Johnnie Alcocer MD Unavailable Lucero Stevenson MD Unavailable [phone] Danni Marcus RN Unavailable Unavailable Mtm, Ea Complex Unavailable Unavailable Svetlana Osman [facility] Unavailable [phone] Haylie Cheung [facility] Unavailable [phone] Galdino Valdez MD Unavailable Galdino Valdez MD Primary Care Provider Jaiden Holcomb MD Primary Care Provider [phone] Kendall Joseph MD Unavailable Erlinda Barber MD Unavailable Jaiden Holcomb MD Unavailable [phone] Doris Lai MD Primary Care Provider Reason for Visit Reason Comments Wound Check Encounter Details Date Type Department Care Team Description 09/10/2019 Office Visit - [facility] [employer] Ashu Steward Pressure injury of left ischium, stage 4 (H); [facility] MD Abdirahman Morbid obesity with BMI of 50.0-59.9, ad ult (H) [place] ABDIRAHMAN STEWARD [facility] [address] [facility] [address] [address] [place], [place] [phone] [address] Social History Tobacco Use Types Packs/Day Years [...] Sign Reading Time Taken Comments Blood Pressure 124/80 09/10/2019 12:56 PM ROOFING PLANT SUPERVISOR Pulse 80 09/10/2019 12:56 PM ROOFING PLANT SUPERVISOR Temperature 37 ??C (98.6 ??F) 09/10/2019 12:56 PM ROOFING PLANT SUPERVISOR Respiratory Rate 12 09/10/2019 12:56 PM ROOFING PLANT SUPERVISOR Oxygen Saturation - - Inhaled Oxygen Concentration - - Weight 158.6 kg (349 lb 9.6 oz) 09/10/2019 12:56 PM ROOFING PLANT SUPERVISOR Height 170.2 cm (5' 7) 09/10/2019 12:56 PM ROOFING PLANT SUPERVISOR Body Mass Index 54.76 09/10/2019 12:56 PM ROOFING PLANT SUPERVISOR documented in this encounter Progress Notes Raleigh Tovar I - 09/10/2019 1:10 PM CST 1 month F/U. Stage 4 left IT pressure ulcer. Silvercel followed by foam daily (Kerramax foam or tegaderm foam) ING PLANT SUPERVISOR Ashu Steward MD - 09/10/2019 1:10 PM CST Plastic Surgery Assessment Note Today's Visit: Pt is doing well and has no concerns or complaints. Pt is tolerating the dressings well. Pt has no fever or chills. Labs: No results for input(s): CRP, HGBA1C, LABPRE, ALBUMIN in the last 72 hours. Invalid input(s): CDIFF, HEM Vitals: Vitals: 09/10/19 1256 Pulse: 80 Resp: 12 Temp: 98.6 ??F (37 ??C) Randall: (!) 349 lb 9.6 oz (158.6 kg) Body mass index is 54.76 kg/m??. Output: Physical Exam: General Appearance: Appears comfortable, Alert, cooperative, no distress, Wound Ostomy Assessment/Plan: VASC Wound 05/15/19 Buttocks (Active) Pre Size Length 3.8 09/10/2019 12:00 PM Pre Size Width 3.6 09/10/2019 12:00 PM Pre Size Depth 3.4 09/10/2019 12:00 PM Pre Total Sq cm 13.68 09/10/2019 12:00 PM Pt has a stage 4 left IT pressure ulcer. There is necrotic sq at the base. There is no erythema or pus. There is moderate to large amount of drainage. Using a currette, incisional debridement of the stage 4 left IT pressure ulcer was done. Debrided 4x4 cm of necrotic sq to healthy bleeding tissue. Devitalized and non- viable tissue were removed to improve granulation tissue formation, stimulate wound healing, decrease bacteria load, decrease wound edge senescence and disrupt biofilm formation. Patient tolerated procedure well. Wound appears dry cleaner apprentice/healther after debridement. ?? Hemostasis was well obtained. She tolerated it well and no complications were noted. Dresssings were reapplied. I recommend silvercel packs and foam dressing changed daily. She is not a good surgical candidate as the ulceris too large and not as healthy at this time. She is overweight and is at high risk for failure or dehiscence of the flap. I recommend offloading cushion for a chair Secondary to her stage 4 left IT pre ssure ulcer. Continue local care for now. Continue offload. Follow up in 1 month. Ashu Steward MD ING PLANT SUPERVISOR documented in this encounter Miscellaneous Notes Patient Instructions - HE - Quynh Umanzor - 09/10/2019 1:10 PM CST Continue home care Wound Care Instructions Every 1-2 days home care will Irrigate your left ischial tuberosity wound(s) with dilute hibiclens (30cc in 500cc NS) Pat Dry Apply skin prep to skin surrounding the wound Apply silvercel into/onto the wounds Cover with KerraMax bordered foam and tegaderm foam. It is ok to get your wound wet in the bath or shower; do wound cares after bathing nystatin to rash prn SEEK MEDICAL CARE IF: You have an increase in swelling, pain, or redness around the wound. You have an increase in the amount of pus coming from the wound. There is a bad smell coming from the wound. The wound appears to be worsening/enlarging You have a fever greater than 101.5 F ING PLANT SUPERVISOR Addendum Note - Quynh Umanzor RN - 09/10/2019 1:10 PM CST Addendum Note by Quynh Umanzor RN at 09/10/2019 1:10 PM Author: Quynh Umanzor RN Service: -- Author Type: Registered Nurse Filed: 09/10/2019 3:56 PM Encounter Date: 09/10/2019 Status: Signed Rag Room Supervisor: Quynh Umanzor RN (Registered Nurse) Addended by: QUYNH UMANZOR on: 09/10/2019 03:56 PM Modules accepted: Orders ING PLANT SUPERVISOR documented in this encounter Plan of Treatment Upcoming Encounters Date Type Specialty Care Team Description 11/15/2022 Virtual Visit Pharm Haylie Gonzalez, [facility] [address] [place], [place] [phone] (Wo rk) 11/15/2022 Virtual Visit IM/Peds Yane Barraza MD [address] [place] [address] [address] [place] [id number] (Wo rk) 03/03/2023 Virtual Visit Neurology Erlinda Barber MD [address] [place] [address] [address] [place], [place] [phone] (Wo rk) documented as of this encounter Visit Diagnoses Diagnosis Pressure injury of left ischium, stage 4 (H) Morbid obesity with BMI of 50.0-59.9, ad ult (H) documented in this encounter Additional Health Concerns Assessment Noted Time PHQ-9 Depression Total Score: 4 04/12/2019 7:03 AM CDT documented as of this encounter Care Teams Product Support Representative Relationship Specialty Start Date End Date Galdino Valdez MD PCP - General Family Practice 11/29/19 02/12/20 [address] [place], [place] [phone] Jaiden Holcomb PCP - General Internal Medicine 02/13/2010/03 MD Jayesh [address] [place] [address] [address] [place] [id number] Doris Lai MD PCP - General 05/24/19 11/28/[address] [place] [address] [address] [place] [phone] Chastity Montero MD Dermatology 09/23/[address] [place] [address] [address] [place], [place] [phone] Johnnie Alcocer MD Surgeon General Surgery 03/23/[address] [place], [place] [phone] Lucero Stevenson, Assigned PCP 06/17/18 MD TOÑO LOPEZ [address] [place] [address] Danni Marcus, CHANDLER Personal Advocate & 01/09/1901/17 Liaison (PAL) Mtkinsey, Ea Complex 04/23/19 Svetlana Osman, Pharmacist Pharmacotherapy 04/23/19 [facility] [address] [place], [place] [phone] Haylie Cheung, Pharmacist Pharmacist 09/11/19 [facility] [address] [place] [address] Galdino Valdez MD Assigned PCP 11/10/19 05/23/20 [address] [place], [place] [phone] Opal, Assigned Sleep 05/08/20 03/27/21 Kendall Meehan MD Provider [address] [place], [place] [address] Erlinda Barber MD Assigned Neuroscience 05/08/20 01/26/[address] [facility] [address] [place] [address] Jaiden Holcomb Assigned PCP 05/24/20 MD Jayesh [address] [place], [place] [phone] documented as of this encounter
--- OUTSIDE RECORDS SUMMARY | 2022-06-15 12:58 | XMS_ITS | Encounter Summary ---
:1945 Author Organization [place] Address [address] [place] [address] Care Team Providers Name Role Phone Chastity Montero MD Unavailable [phone] Johnnie Alcocer MD Unavailable Lucero Stevenson MD Unavailable [phone] Danni Marcus RN Unavailable Unavailable Mtkinsey, Ea Complex Unavailable Unavailable Svetlana Osman [facility] Unavailable [phone] Haylie Cheung [facility] Unavailable [phone] Doris Lai MD Primary Care Provider Reason for Visit Reason Onset Date Comments Orders 10/18/2019 wound care Encounter Details Date Type Department Care Team Description 10/18/2019 [facility] Doris Agarwal MD Orders (wound care) [place] [address] [facility] [address] [place] [address] [place] [address] [facility] [address] [place] [address] [phone] Social History Tobacco Use Types Packs/Day Years [...] 05/03/2021 organizations such as restoration groups, unions, fraWiiiWaaa or athletic groups, or school groups? How [...] Telephone Encounter - Jolanta Reddy RN - 10/18/2019 3:54 PM CDT Call from [facility] [place] [facility] #[phone] A verbal ok was given for wound care 7 days a week. physical therapy evaluation: a verbal ok given. Jolanta Reddy RN Message handled by Nurse Triage. documented in this encounter Plan of Treatment Upcoming Encounters Date Type Specialty Care Team Description 11/15/2022 Virtual Visit Pharm D Haylie Cheung, [facility] [address] [facility] [place] [address] (Lena max) 11/15/2022 Virtual Visit [place] [address] [place] [address] [place] [id number] (Lena max) 03/03/2023 Virtual Visit Neurology Erlinda Barber MD 420 [facility] 295 [place] [address] (Lena max) documented as of this encounter Visit Diagnoses Not on filedocumented in this encounter Additional Health Concerns Assessment Noted Time PHQ-9 Depression Total Score: 4 04/12/2019 7:03 AM CDT documented as of this encounter Care Teams Heating Element Winder Relationship Specialty Start Date End Date Doris Lai MD PCP - General 05/24/19 11/28/19 [address] [facility] [place] [id number] Chastity Montero MD Dermatology 09/23/14 [address] [place] [address] [facility] [address] [place], [place] [address] Johnnie Alcocer MD Surgeon General Surgery 03/23/17 [address] [facility] 300 [place], [place] [phone] Lucero Stevenson Assigned PCP 06/17/18 11/09/19 MD Annetta [facility] 8675 [place] [address] Danni Marcus, CHANDLER Personal Advocate & 01/09/1901/17 Liaison (PAL) Mtkinsey, Ea Complex 04/23/19 Svetlana Osman, Pharmacist Pharmacotherapy 04/23/19 [facility] [address] [place] [address] Haylie Cheung, Pharmacist Pharmacist 09/11/19 [facility] [address] [place] [address] documented as of this encounter
--- OUTSIDE RECORDS SUMMARY | 2022-06-15 12:58 | XMS_ITS | Encounter Summary ---
:1945 Author Organization [place] Address [address] [place] [address] Care Team Providers Name Role Phone Chastity Montero MD Unavailable [phone] Johnnie Alcocer MD Unavailable Lucero Stevenson MD Unavailable Danni Marcus RN Unavailable Unavailable Mtm, Ea Complex Unavailable Unavailable Svetlana Osman [facility] Unavailable [phone] Haylie Cheung [facility] Unavailable [phone] Doris Lai MD Primary Care Provider Reason for Visit Reason Comments Medication Therapy Management Encounter Details Date Type Department Care Team Description 09/11/2019 Office Visit [facility] Haylie Cheung re (H) (Primary Dx); Clinic Yarelis Rojas [facility] Essential hypertension, benign; [address] [employer] [address] [facility] Lymphedema of both lower extremities; [address] [place] [address] 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 She was referred to me from complex care team. Today's visit is a co-visit with care team. Patient was accompanied by daughter today. First 2019. Chief Complaint: Follow up from MT visit on 04/24/2019. Questions: 1) wondering about her lymphedemaoutput and healing, 2) sensation in her foot, 3) wondering if she should be on hydrochlorothiazide Allergies/ADRs: Reviewed in [facility] Tobacco: No tobacco use Alcohol: not currently using Activity: She is planning on exercise program, Present with walker. PMH: Reviewed in [facility] Medication Adherence/Access: Patient takes medications directly from bottles. Patient takes medications 2 time(s) per day. Per patient, misses medication 0 times per week. Medication barriers: none. The patient fills medications at [place]: NO, fills medications at [facility]. CEFERINO: Using a CPAP but has not had the machine checked in a while. She denies any issues with CPAP. Intermittent pain: Current medications include: acetaminophen 650mg Q4 prn. Rarely using. No other concerns. Hypertension/Lymphedema: Current medications include losartan 50mg every day AM, atenolol 25mg twicedaily. If pumps are too tight to put on then will take the furosemide 20 mg (has used 3-4 times in the past week). However, she does not think the furosemide makes a big difference. She can't tell. Haslymphedema pump/tube that she wear daily with the help of the aids, will run 1 hour (she notes thefluid output is variable and not dependent on furosemide or water intake). Patient reports the following medication side effects: none today History of being on triamterene-hydrochlorothiazide 37.5-25mg which she tolerated well. Home care does check BP (and other vitals) which those BP are generally ~120/70's. Pt reports white coat syndrome. BP Readings from Last 3 Encounters: 09/11/19 138/86 07/22/19 (!) 170/107 04/24/19 126/88 Potassium Date Value Ref Range Status 07/19/2019 4.1 3.4 - 5.3 mmol/L Final Estimated Creatinine Clearance: 140.4 mL/min (based on SCr of 0.56 mg/dL). Recurrent PE: Current medication is wafarin in the evening as directed by INR clinic. Next check Monday. Per Dr. Felipe recommendation lifelong therapy. No bleeding concerns today. Lab Results Component Value Date INR 2.7 09/03/2019 INR 1.9 08/20/2019 INR 2.4 07/30/2019 Anemia: Hx of iron deficiency induced anemia. Current medication is ferrous sulfate 325mg every other day with breakfast (along with vitamin C). She is taking this with her other supplements. No constipation with diet. Hemoglobin Date Value Ref Range Status 07/19/2019 13.5 11.7 - 15.7 g/dL Final Ferritin Date Value Ref Range Status 04/23/2019 92 8 - 252 ng/mL Final Iron Date Value Ref Range Status 04/23/2019 59 35 - 180 ug/dL Final Iron Binding Cap Date Value Ref Range Status 04/23/2019 318 240 - 430 ug/dL Final Seizure: Current medication is levetiracetam 500mg twice a day. Patient was hospitalized in February with suspected seizure. S/E: feels the fatigue may have improved with the twice a day. Allergies: Current medications include cetirizine 10mg twice daily. Primary symptoms are nasal congestion. She also states she has had a lot of skin testing previously and is allergic to many things (Dr. Edward Schroeder at the ). She does not like nasal sprays and do not want to start those. Pt feels that current therapy is somewhat effective. Eczema/Wound: Current medication is hydrocortisone 2.5% ointment PRN, nystatin cream or powder for wound healing/infection which she feels is highly effective. She no longer has desoximetasone 0.05% asneeded for skin flare ups due to formulary. She has worked with dermatology and ID. No longer on IV antibiotic. Has a nurse to check wounds daily. Supplements: Currently taking vitamin D 2000 units every day, calcium carbonate+D 600-200 1 tablet every day PRN (has a big bottle left at home), MVI 1 tablet every day (has a big bottle left at home),Preservision/Luteine 1 cap every day for macular degeneration, vitamin C 500 mg daily for wound healing daily. Calcium intake: At least 1 yogurt daily, 2 glasses of milk and bag of salad every day. Normal DEXA scan 2012. Lab Results Component Value Date VITDT 54 01/01/2016 VITDT 63 12/30/2014 Foot discomfort: Reports a left lower foot discomfort that feels something is always there. Sensation comes and goes. Denies any triggers or anything to reduce the frequent. This sensation does not hurt. This started after the surgery about 1.5 years ago. Weight Loss: Current medication include: none. She is interested in weight loss and is wondering what she can do for this. Patient's personalized goal: Patient would like to work on diet and possibly medication for weight loss. Current weight today: 352 lbs 12.8 oz Weight trend: Wt Readings from Last 10 Encounters: 09/11/19 (!) 352 lb 12.8 oz (160 kg) 07/22/19 (!) 354 lb 6.4 oz (160.8 kg) 04/24/19 (!) 334 lb 7 oz (151.7 kg) 04/23/19 (!) 334 lb 8 oz (151.7 kg) 03/20/19 (!) 343 lb 14.4 oz (156 kg) 03/15/19 (!) 355 lb (161 kg) 02/20/19 (!) 350 lb (158.8 kg) 02/06/19 (!) 350 lb 9.6 oz (159 kg) 01/16/19 (!) 335 lb (152 kg) 01/09/19 (!) 340 lb 1.6 oz (154.3 kg) Today's Vitals: BP Readings from Last 1 Encounters: 09/11/19 138/86 Pulse Readings from Last 1 Encounters: 09/11/19 80 Wt Readings from Last 1 Encounters: 09/11/19 (!) 352 lb 12.8 oz (160 kg) Ht Readings from Last 1 Encounters: 09/11/19 5' 7 (1.702 m) Estimated body mass index is 55.26 kg/m?? as calculated from the following: Height as of this encounter: 5' 7 (1.702 m). Weight as of this encounter: 352 lb 12.8 oz (160 kg). Temp Readings from Last 1 Encounters: 09/11/19 98.7 ??F (37.1 ??C) (Tympanic) ASSESSMENT: Medication Adherence: fair, no issues identified CEFERINO: Needs improvement. Likely would benefit from recheck of CPAP to ensure proper settings. Pain: stable. Hypertension/Lymphedema: Stable. Patient is meeting BP goal of < 140/90mmHg. Pt to continue lymphedema pumps. May continue furosemide PRN. Recurrent PE: stable. INR at goal 2-3. Anemia: stable. Hgb normal. PCP suggest annual CBC moving forward. Seizure: stable. Allergic rhinitis: unchanged. Eczema/Wound: Needs improvement. Pt may benefit from switch to alternate topical steroid for PRN use. Supplements: Needs improvement. Pt may likely does not need PO supplementation of MV and calcium. Likely meeting calcium goal 04115 mg daily. Foot discomfort: stable. Given no pain would not suggest pharmacotherapy for this. Benefit from PCP assessment and pt to monitoring for any worsening symptoms. Weight Loss: Needs improvement. Pt would benefit from weight management program. PLAN: Post Discharge Medication Reconciliation Status: discharge medications reconciled and changed, per note/orders (see AVS). Supplements: 1. You may stop the multivitamin and calcium supplementation as you are likely meeting these daily recommended intake from your diet. Skin flares: 1. Replace desoximetasone with triamcinolone 0.1% ointment as needed. Sleep apnea: 1. Please see the sleep provider again to check the settings of the machine again. Referral today Weight management: 1. Referral to [facility] - Genevieve will work on getting an order Next visit: address shingles vaccine (care will work on getting access to allergy testing history). I spent 70 minutes with this patient today. All changes were made via verbal approval with Galdino Valdez. A copy of the visit note was provided to the patient's primary care provider. Will follow up in 5 months. The patient was given a summary of these recommendations. See Provider note/AVS from today. Haylie Cheung PharmD Medication Therapy Management Pharmacist Pager#: [phone] NG AUDITOR documented in this encounter Plan of Treatment Upcoming Encounters Date Type Specialty Care Team Description 11/15/2022 Virtual Visit Haylie Wakefield [facility] [address] [facility] [address] [place] [id number] (Lena max) 11/15/2022 Virtual Visit [place] [address] [place] [address] [place] [phone] (Lena max) 03/03/2023 Virtual Visit Neurology Erlinda Barber MD 420 [facility] 295 [place] [address] (Wo winter) documented as of this encounter Visit Diagnoses Diagnosis Seizure (H) - Primary Other convulsions Essential hypertension, benign Lymphedema of both lower extremities 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 embolism Takes dietary supplements Allergic reaction, sequela Open wound Open wound(s) (multiple) of unspecified site(s), without mention of complication Eczema, unspecified type Intermittent pain Generalized pain CEFERINO on CPAP Obstructive sleep apnea (adult) (pediatr ic) Abnormal foot pulse 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 Iron deficiency anemia secondary to bloo d loss (chronic) Morbid obesity -- BMI 55.6 Morbid obesity documented in this encounter Additional Health Concerns Assessment Noted Time PHQ-9 Depression Total Score: 4 04/12/2019 7:03 AM CDT documented as of this encounter Care Teams Hospital Security Officer Relationship Specialty Start Date End Date Doris Lai MD PCP - General 05/24/19 11/28/19 3305 [facility] [place] [id number] Chastity Montero MD Dermatology 09/23/14 [address] [address] [facility] 98 [place], [place] [address] Johnnie Alcocer MD Surgeon General Surgery 03/23/17 [address] [place], [place] [address] Lucero Stevenson Assigned PCP 06/17/18 11/09/19 MD Annetta [facility] 8675 [place], [place] [phone] Danni Marcus, CHANDLER Personal Advocate & 01/09/1901/17 Liaison (PAL) Kyle King Complex 04/23/19 Svetlana Osman, Pharmacist Pharmacotherapy 04/23/19 [place] [address] [place] [phone] Haylie Cheung, Pharmacist Pharmacist 09/11/19 [facility] [address] [place] [address] documented as of this encounter
--- OUTSIDE RECORDS SUMMARY | 2022-06-15 12:58 | XMS_ITS | Encounter Summary ---
:1945 Author Organization [place] Address [address] [place] [address] Care Team Providers Name Role Phone Chastity Montero MD Unavailable [phone] Johnnie Alcocer MD Unavailable Lucero Stevenson MD Unavailable Danni Marcus RN Unavailable Unavailable Mtm, Ea Complex Unavailable Unavailable Svetlana Osman [facility] Unavailable Haylie Cheung [facility] Unavailable [phone] Galdino Valdez MD Unavailable Galdino Valdez MD Primary Care Provider Jaiden Holcomb MD Primary Care Provider [phone] Kendall Joseph MD Unavailable Erlinda Barber MD Unavailable Jaiden Holcomb MD Unavailable [phone] Doris Lai MD Primary Care Provider Reason for Visit Reason Comments Other cushvick Encounter Details Date Type Department Care Team Description 09/12/2019 [facility] Raleigh Tovar ( mirela) [facility] Vascular Center I, RN [place] [address] [facility] [address], [place] [address] Social History Tobacco Use Types [...] Notes Telephone Encounter - Aditi Umanzor - 09/17/2019 9:58 AM CST Noted T WRITER Telephone Encounter - Raleigh Tovar I - 09/12/2019 1:52 PM CST Genevieve from [facility] [phone] called to see if we ordered patient new gel cushions. I explained I do not see an order for this. They will work on ordering through [employer]. I will forward to Nichelle team. T WRITER documented in this encounter Plan of Treatment Upcoming Encounters Date Type Specialty Care Team Description 11/15/2022 Virtual Visit Pharm D Haylie Cheung, [facility] [address] [facility] [address] [place], [place] [id number] (Wo rk) 11/15/2022 Virtual Visit IM/Yane Mathias MD [address] [place] [address] [place], [place] [phone] (Wo rk) 03/03/2023 Virtual Visit Neurology Erlinda Barber MD [address] [place] [address] 295 [place], [place] [address] (Wo rk) documented as of this encounter Visit Diagnoses Not on filedocumented in this encounter Additional Health Concerns Assessment Noted Time PHQ-9 Depression Total Score: 4 04/12/2019 7:03 AM CDT documented as of this encounter Care Teams Geological E Logger Relationship Specialty Start Date End Date Galdino Valdez MD PCP - General Family Practice 11/29/19 02/12/20 [address] [place], [place] [phone] Jaiden Holcomb PCP - General Internal Medicine 02/13/2010/03 MD Jayesh [address] [place] [address] [place], [place] [phone] Doris Lai MD PCP - General 05/24/19 11/28/[address] [place] [address] [address] [place] [phone] Chastity Montero MD Dermatology 09/23/[address] [place] [address] 98 [place], [place] [address] Johnnie Alcocer MD Surgeon General Surgery 03/23/17 [address] [facility] 300 [place], [place] [address] Lucero Stevenson, Palak PCP 06/17/18 MD TOÑO LOPEZ 8675 [place], [place] [phone] Danni Marcus, RN Personal Advocate & 01/09/1901/17 Liaison (PAL) Mtkinsey, Ea Complex 04/23/19 Svetlana Osman, Pharmacist Pharmacotherapy 04/23/19 [facility] [address] [place], [place] [phone] Haylie Cheung, Pharmacist Pharmacist 09/11/19 [facility] [address] [place] [place], [place] [phone] Galdino Valdez MD Assigned PCP 11/10/19 05/23/20 [address] [place], [place] [phone] Opal, Assigned Sleep 05/08/20 03/27/21 Kendall Meehan MD Provider [address] [place], [place] [phone] Erlinda Barber MD Assigned Neuroscience 05/08/20 01/26/21 420 [facility] 295 Provider [place], [place] [phone] Jaiden Holcomb Assigned PCP 05/24/20 MD Jayesh 909 [place], [place] [phone] documented as of this encounter
--- OUTSIDE RECORDS SUMMARY | 2022-06-15 12:58 | XMS_ITS | Encounter Summary ---
:1945 Author Organization [place] Address [address] [place] [address] Care Team Providers Name Role Phone Chastity Montero MD Unavailable [phone] Johnnie Alcocer MD Unavailable Lucero Stevenson MD Unavailable [phone] Danni Marcus RN Unavailable Unavailable Mtm, Ea Complex Unavailable Unavailable Svetlana Osman [facility] Unavailable [phone] Haylie Cheung [facility] Unavailable [phone] Doris Lai MD Primary Care Provider Encounter Details Date Type Department Care Team Description 09/11/2019 Travel Social History Tobacco Use Types Packs/Day [...] Pharm Haylie Gonzalez, [facility] [address] [place] [address] (Wo rk) 11/15/2022 Virtual Visit IM/Peds Yane Barraza MD 3[address] [facility] [place] [address] (Wo rk) 03/03/2023 Virtual Visit Neurology Erlinda Barber MD [address] [place] [address] 295 [place] [address] (Wo rk) documented as of this encounter Visit Diagnoses Not on filedocumented in this encounter Additional Health Concerns Assessment Noted Time PHQ-9 Depression Total Score: 4 04/12/2019 7:03 AM CDT documented as of this encounter Care Teams Picker Operator Relationship Specialty Start Date End Date Doris Lai MD PCP - General 05/24/19 11/28/19 [address] [place] [place] [address] Chastity Montero MD Dermatology 09/23/[address] [place] [address] 98 [place], [place] [phone] Johnnie Alcocer MD Surgeon General Surgery 03/23/17 [address] [facility] 300 [place] [address] Lucero Stevenson Assigned PCP 06/17/18 11/09/19 MD [facility] 8675 [place] [address] Danni Marcus, RN Personal Advocate & 01/09/1901/17 Liaison (PAL) Kyle King Complex 04/23/19 Svetlana Osman, Pharmacist Pharmacotherapy 04/23/19 [facility] [address] [place], [place] [address] Haylie Cheung, Pharmacist Pharmacist 09/11/19 [place] [address] [place] [address] documented as of this encounter
--- OUTSIDE RECORDS SUMMARY | 2022-06-15 12:58 | XMS_ITS | Encounter Summary ---
:1945 Author Organization [place] Address formerly [facility]0 [place] [address] Care Team Providers Name Role Phone Chastity Montero MD Unavailable [phone] Johnnie Alcocer MD Unavailable Lucero Stevenson MD Unavailable [phone] Danni Marcus RN Unavailable Unavailable Mtm, Ea Complex Unavailable Unavailable Svetlana Osman [facility] Unavailable [phone] Haylie Cheung [facility] Unavailable [phone] Galdino Valdez MD Unavailable Galdino Valdez MD Primary Care Provider Jaiden Holcomb MD Primary Care Provider [phone] Kendall Joseph MD Unavailable Erlinda Barber MD Unavailable Jaiden Holcomb MD Unavailable [phone] Doris Lai MD Primary Care Provider Encounter Details Date Type Department Care Team Description 10/25/2019 [facility] Vascular [address] [place] [address] Social History Tobacco Use Types Packs/Day [...] this encounter Miscellaneous Notes Telephone Encounter - Molly Guido - 10/25/2019 3:24 PM CDT Refaxed the order and provider's note to handi. documented in this encounter Plan of Treatment Upcoming Encounters Date Type Specialty Care Team Description 11/15/2022 Virtual Visit Pharm D Haylie Cheung, [facility] 1440 [facility] [place] [address] (Lena max) 11/15/2022 Virtual Visit IM/Peds Yane Barraza MD 4436 [facility] [place] [address] (Lena max) 03/03/2023 Virtual Visit Neurology Erlinda Barber MD 420 [facility] 295 [place], [place] [phone] (Wo rk) documented as of this encounter Visit Diagnoses Not on filedocumented in this encounter Additional Health Concerns Assessment Noted Time PHQ-9 Depression Total Score: 4 04/12/2019 7:03 AM CDT documented as of this encounter Care Teams Black Puller Relationship Specialty Start Date End Date Galdino Valdez MD PCP - General Family Practice 11/29/19 02/12/20 [address] [place], [place] [phone] Jaiden Holcomb PCP - General Internal Medicine 02/13/2010/03 MD Jayesh [address] [facility] [address] [place] [id number] Doris Lai MD PCP - General 05/24/19 11/28/19 [address] [facility] [address] [place] [id number] Chastity Montero MD Dermatology 09/23/[address] [place] [address] 98 [place], [place] [address] Johnnie Alcocer MD Surgeon General Surgery 03/23/17 [address] [facility] 300 [place], [place] [phone] Lucero Stevenson, Assigned PCP 06/17/18 MD TOÑO LOPEZ 8675 [place] [address] Danni Marcus, CHANDLER Personal Advocate & 01/09/1901/17 Liaison (PAL) Fernando, Ea Complex 04/23/19 Svetlana Osman, Pharmacist Pharmacotherapy 04/23/19 [facility] [address] [facility] [place] [id number] Haylie Cheung, Pharmacist Pharmacist 09/11/19 [facility] [address] [facility] [place] [place] [address] Galdino Valdez MD Assigned PCP 11/10/19 05/23/20 [address] [place] [address] Opal, Assigned Sleep 05/08/20 03/27/21 Kendall Meehan MD Provider [address] [place] [address] Erlinda Barber MD Assigned Neuroscience 05/08/20 01/26/21 420 [facility] 295 [place] [address] Jaiden Holcomb Assigned PCP 05/24/20 MD Jayesh 909 [place] [address] documented as of this encounter
--- OUTSIDE RECORDS SUMMARY | 2022-06-15 12:58 | XMS_ITS | Encounter Summary ---
:1945 Author Organization [facility] Address [address] [place] [address] Care Team Providers Name Role Phone Chastity Montero MD Unavailable [phone] Johnnie Alcocer MD Unavailable Lucero Stevenson MD Unavailable Danni Marcus RN Unavailable Unavailable Mtm, Ea Complex Unavailable Unavailable Svetlana Osman [facility] Unavailable [phone] Haylie Cheung [facility] Unavailable [phone] Doris Lai MD Primary Care Provider Reason for Referral Consultation (Routine) - Closed Specialty Diagnoses / Procedures Referred By Contact Refer red To Contact Diagnoses Morbid obesity (H) Haylie Cheung [facility] [address] [place] [address] [place] [address] [address] [place] [address] Phone: Fax: Referral ID Status Reason Start Date Expiration Date Visits Requ ested Visits Authorized [id number] Closed 09/11/2019 09/10/2020 1 1 ODIAN MANAGER Reason for Visit Reason Comments Wounds Lymphedema Hypertension Weight Problem Musculoskeletal Problem Nerve pain in foot Encounter Details Date Type Department Care Team Description 09/11/2019 Office Visit [facility] [place] [address] [place] [address] 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 (Primary Dx); Clinic Kyle Iglesias Rn Pressure injury of left buttock, stage 4 (H); [address] Lymphedema of both lower extremities; [address] Essential hypertension, josy gn; [address] Seizure (H); [place] [address] Morbid obesity -- BMI 55.6; [phone] CEFERINO on CPAP; Adjustment diso rder with depressed mood; History of iron deficiency anemia; Iron deficiency anemia, unspecified iron deficiency anemia type; Left foot pain; Dermatitis; Foot drop, left Social History Tobacco Use [...] Sign Reading Time Taken Comments Blood Pressure 138/86 09/11/2019 1:39 PM CUSTODIAN MANAGER Pulse 80 09/11/2019 1:39 PM CUSTODIAN MANAGER Temperature 37.1 ??C (98.7 ??F) 09/11/2019 1:39 PM CUSTODIAN MANAGER Respiratory Rate 20 09/11/2019 1:39 PM CUSTODIAN MANAGER Oxygen Saturation 96% 09/11/2019 1:39 PM CUSTODIAN MANAGER Inhaled Oxygen Concentration - - Weight 160 kg (352 lb 12.8 oz) 09/11/2019 1:39 PM CUSTODIAN MANAGER Height 170.2 cm (5' 7) 09/11/2019 1:39 PM CUSTODIAN MANAGER Body Mass Index 55.26 09/11/2019 1:39 PM CUSTODIAN MANAGER documented in this encounter Patient Instructions Patient InstructionsHaylie Cheung RP - 09/11/2019 2:00 PM CUSTODIAN MANAGER Recommendations from today's Care Team visit: Thank you for participating in our care team visit today! Supplements: 1. You may stop the multivitamin and calcium supplementation as you are likely meeting these daily recommended intake from your diet. Skin flares: 1. Replace desoximetasone with triamcinolone 0.1% ointment as needed. Sleep apnea: 1. Please see the sleep provider again to check the settings of the machine again. Referral today Weight management: 1. Referral to [facility] [place] will work on getting an order Next care team visit: January, we will call you to schedule It was a pleasure seeing you today! Please feel free to contact us with any questions or concerns you have. You may reach your care team by calling . If you leave a message, someone from your care team will return your call. My Care Team Members Dr. Valdez Nurse KODY Cheung, PharmD Medication Therapy Management Pharmacist You may receive a survey about the services you received. I would appreciate your feedback to us serve you better in the future. Please fill it out and return it when you can. Your comments will be anonymous. ODIAN MANAGER documented in this encounter Progress Notes Haylie Cheung RPH - 09/11/2019 2:00 PM CST [facility] ENCOUNTER SUBJECTIVE/OBJECTIVE: Charlette Brush is a 74 year old female coming in for a follow-up visit. She was referred to me from complex care team. Today's visit is a co-visit with care team. Patient was accompanied by daughter today. Chief Complaint: Follow up from MDM visit on 04/24/2019. Questions: 1) wondering about her lymphedemaoutput and healing, 2) sensation in her foot, 3) wondering if she should be on hydrochlorothiazide Allergies/ADRs: Reviewed in [facility] Tobacco: No tobacco use Alcohol: not currently using Activity: She is planning on exercise program, Present with walker. PMH: Reviewed in [facility] Medication Adherence/Access: Patient takes medications directly from bottles. Patient takes medications 2 time(s) per day. Per patient, misses medication 0 times per week. Medication barriers: none. The patient fills medications at [facility]: NO, fills medications at [facility]. CEFERINO: Using a CPAP but has not [...] MV and calcium. Likely meeting calcium goal 08303 mg daily. Foot discomfort: stable. Given no pain would not suggest pharmacotherapy for this. Benefit from PCP assessment and pt to monitoring for any worsening symptoms. Weight Loss: Needs improvement. Pt would benefit from weight management program. PLAN: Supplements: 1. You may stop the multivitamin and calcium supplementation as you are likely meeting these daily recommended intake from your diet. Skin flares: 1. Replace desoximetasone with triamcinolone 0.1% ointment as needed. Sleep apnea: 1. Please see the sleep provider again to check the settings of the machine again. Referral today Weight management: 1. Referral to [facility] [place] will work on getting an order I spent 70 minutes with this patient today. All changes were made via verbal approval with Galdino Valdez. A copy of the visit note was provided to the patient's primary care provider. Will follow up in 5 months. The patient was given a summary of these recommendations. See Provider note/AVS from today. Haylie Cheung PharmD Medication Therapy Management Pharmacist Pager#: [phone] ODIAN MANAGER Galdino Valdez MD - 09/11/2019 2:00 PM CST Assessment/Plan Problem List Items Addressed This Visit Nervous and Auditory Seizure (H) Keppra 500 mg twice daily. No seizure activity on this dose. EEG on showed occasional left temporal epileptiform activities during sleep and occasional left temporal slowing during sleep and wakefulness. Dysesthesia Ongoing since 2018. Pulsating pain in left foot medially, plantar surface, under toes, and outer aspect of foot. Relevant Medications nystatin (NYSTOP) 269057 UNIT/GM external powder nystatin (MYCOSTATIN) 655779 UNIT/GM external cream triamcinolone (KENALOG) 0.1 % external ointment Respiratory CEFERINO on CPAP Has not followed up with sleep center provider since 2016. CPAP functioning well per pt Sleep center consult ordered Relevant Orders SLEEP EVALUATION & MANAGEMENT REFERRAL - ADULT -[facility] [phone] (Age 18 and up) Digestive Morbid obesity -- BMI 55.6 Wt Readings from Last 4 Encounters: 09/11/19 (!) 160 kg (352 lb 12.8 oz) 07/22/19 (!) 160.8 kg (354 lb 6.4 oz) 04/24/19 (!) 151.7 kg (334 lb 7 oz) 04/23/19 (!) 151.7 kg (334 lb 8 oz) Is doing seated exercises, including a seated bike. Has made dietary modifications Bariatric referral Relevant Orders COMPREHENSIVE WEIGHT MANAGEMENT Circulatory Essential hypertension, benign Blood pressure controlled. BP Readings from Last 3 Encounters: 09/11/19 138/86 07/22/19 (!) 170/107 04/24/19 126/88 Relevant Medications losartan (COZAAR) 50 MG tablet atenolol (TENORMIN) 25 MG tablet Musculoskeletal and Integumentary Pressure injury of left buttock, stage 4 (H) Managed by [facility]. Wound irrigation every 1-2 days with dilute Hibiclens. Skin prep with Kerra Max foam and Tegaderm foam around the wound. PICC line with IV antibiotics-treatment completed in early July Pt concerned about recurrent osteo. Discussed lack of utility of MR at this stage, reassuring serologic markers Relevant Medications nystatin (NYSTOP) 865833 UNIT/GM external powder nystatin (MYCOSTATIN) 325206 UNIT/GM external cream triamcinolone (KENALOG) 0.1 % external ointment Lymphedema of both lower extremities Lymphedema with Flexitouch pumps that are applied daily by aide. Lasix 20 mg once or twice per week if Lymphedema pumps feel tighter Dermatitis Intertriginous.Nystatin powder and cream. Triamcinolone ointment Relevant Medications nystatin (NYSTOP) 272273 UNIT/GM external powder nystatin (MYCOSTATIN) 507519 UNIT/GM external cream triamcinolone (KENALOG) 0.1 % external ointment Foot drop, left Left ankle and foot brace is no longer fitting well. Notes calluses to foot. Referral to Orthotics Dx presumed Relevant Orders Ankle/Foot Bracing Supplies Order for DME - ONLY FOR DME Hematologic Iron deficiency anemia, unspecified iron deficiency anemia type Repleted. Continue Fe as supplement Relevant Medications ferrous sulfate (FEROSUL) 325 (65 Fe) MG tablet RESOLVED: Iron deficiency anemia due to chronic blood loss Ferritin level was 92 in April. Was advised she may decrease Iron to every other day, or stop taking Iron Takes Ferrous Sulfate 325 mg every other day, and recommend continuing this. Hemoglobin Date Value Ref Range Status 07/19/2019 13.5 11.7 - 15.7 g/dL Final 07/12/2019 14.2 11.7 - 15.7 g/dL Final Relevant Medications ferrous sulfate (FEROSUL) 325 (65 Fe) MG tablet Behavioral Adjustment disorder with depressed mood One visit with Behavioral Health. Feels that mood is more stable. Declines further intervention at this time. 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 Health Maintenance Due Topic Date Due ??? ZOSTER IMMUNIZATION (1 of 2) 01/05/1996 ??? OP ANNUAL INR REFERRAL 01/18/2017 Time in: 1435 Time out: 1515 Subjective Patient here for follow-up of multiple concerns. Has ongoing wound on left ischium since fall in October 2017. Being seen at [facility]. Needs assistance obtaining a new cushion for her seat thru [employer] ([phone]) Gel-T cushion Model #[id number]. Need two cushions. Question about why hydrochlorothiazide was changed to Lasix in October 2017? Needs form completed for [employer]. Ashli Marcus RN Review of Systems Constitutional: Negative. HENT: Negative. Eyes: Negative. Respiratory: Negative. Cardiovascular: Positive for peripheral edema. Has bilateral Lymphedema. Gastrointestinal: Negative. Genitourinary: Negative. Musculoskeletal: Negative. Skin: Positive for wound. Stage 4-ischial wound-left side Allergic/Immunologic: Negative. Neurological: Negative. Hematological: Negative. All other systems reviewed and are negative. History Past Medical History: Diagnosis Date ??? [...] Alcohol use: No Frequency: Never Objective BP 138/86 (BP Location: Right arm, Patient Position: Sitting, Cuff Size: Adult Large) Pulse 80 Temp 98.7 ??F (37.1 ??C) (Tympanic) Resp 20 Ht 1.702 m (5' 7) Wt (!) 160 kg (352 lb 12.8 oz) SpO2 96% BMI 55.26 kg/m?? Vitals taken by Ashli Marcus RN Physical Exam Constitutional: Appearance: She is obese. HENT: Mouth/Throat: Mouth: Mucous membranes are moist. Eyes: Conjunctiva/sclera: Conjunctivae normal. Cardiovascular: Rate and Rhythm: Normal rate and regular rhythm. Pulmonary: Effort: Pulmonary effort is normal. Musculoskeletal: Right lower leg: Edema present. Left lower leg: Edema present. Comments: 3+ Skin: General: Skin is warm and dry. Neurological: Mental Status: She is alert and oriented to person, place, and time. Cranial Nerves: No cranial nerve deficit. Psychiatric: Mood and Affect: Mood normal. Behavior: Behavior normal. Records requested from [facility] re surgery Over 50 % of this visit 40 minute visit spent in face to face counseling and coordination of care regarding the above issues, Galdino Valdez MD [facility] ODIAN MANAGER documented in this encounter Miscellaneous Notes Assessment & Plan Note - Galdino Valdez MD - 09/12/2019 10:28 AM CSTAssociated Problem(s): Iron deficiency anemia, unspecified iron deficiency anemia type Repleted. Continue Fe as supplement ODIAN MANAGER Assessment & Plan Note - Danni Marcus RN - 09/11/2019 3:59 PM CSTAssociated Problem(s): Dermatitis Intertriginous.Nystatin powder and cream. Triamcinolone ointment ODIAN MANAGER Assessment & Plan Note - Danni Marcus RN - 09/11/2019 3:57 PM CSTAssociated Problem(s): Foot drop, left Left ankle and foot brace is no longer fitting well. Notes calluses to foot. Referral to Orthotics Dx presumed ODIAN MANAGER Assessment & Plan Note - Danni Marcus RN - 09/11/2019 2:17 PM CSTAssociated Problem(s): Morbid obesity -- BMI 55-60 Wt Readings from Last 4 Encounters: 09/11/19 (!) 160 kg (352 lb 12.8 oz) 07/22/19 (!) 160.8 kg (354 lb 6.4 oz) 04/24/19 (!) 151.7 kg (334 lb 7 oz) 04/23/19 (!) 151.7 kg (334 lb 8 oz) Is doing seated exercises, including a seated bike. Has made dietary modifications Bariatric referral ODIAN MANAGER Assessment & Plan Note - Danni Marcus RN - 09/11/2019 2:00 PM CSTAssociated Problem(s): Dysesthesia Ongoing since 2017. Pulsating pain in left foot medially, plantar surface, under toes, and outer aspect of foot. ODIAN MANAGER Assessment & Plan Note - Danni Marcus RN - 09/11/2019 10:28 AM CSTAssociated Problem(s): Iron deficiency anemia due to chronic blood loss (Resolved 09/12/2019) Ferritin level was 92 in April. Was advised she may decrease Iron to every other day, or stop taking Iron Takes Ferrous Sulfate 325 mg every other day, and recommend continuing this. Hemoglobin Date Value Ref Range Status 07/19/2019 13.5 11.7 - 15.7 g/dL Final 07/12/2019 14.2 11.7 - 15.7 g/dL Final ODIAN MANAGER Assessment & Plan Note - Danni Marcus RN - 09/11/2019 10:28 AM CSTAssociated Problem(s): Adjustment disorder with depressed mood One visit with Behavioral Health. Feels that mood is more stable. Declines further intervention at this time. ODIAN MANAGER Assessment & Plan Note - Danni Marcus RN - 09/11/2019 10:27 AM CSTAssociated Problem(s): CEFERINO on CPAP Has not followed up with sleep center provider since 2017. CPAP functioning well per pt Sleep center consult ordered ODIAN MANAGER Assessment & Plan Note - Danni Marcus RN - 09/11/2019 10:27 AM CSTAssociated Problem(s): Seizure (H) Keppra 500 mg twice daily. No seizure activity on this dose. EEG on showed occasional left temporal epileptiform activities during sleep and occasional left temporal slowing during sleep and wakefulness. ODIAN MANAGER Assessment & Plan Note - Danni Marcus RN - 09/11/2019 10:26 AM CSTAssociated Problem(s): Essential hypertension, benign Blood pressure controlled. BP Readings from Last 3 Encounters: 09/11/19 138/86 07/22/19 (!) 170/107 04/24/19 126/88 ODIAN MANAGER Assessment & Plan Note - Danni Marcus RN - 09/11/2019 10:25 AM CSTAssociated Problem(s): Lymphedema of both lower extremities Lymphedema with Flexitouch pumps that are applied daily by aide. Lasix 20 mg once or twice per week if Lymphedema pumps feel tighter Role of diuretics/lack thereof discussed ODIAN MANAGER Assessment & Plan Note - Danni Marcus RN - 09/11/2019 10:23 AM CSTAssociated Problem(s): Pressure injury of left buttock, stage 4 (H) (Resolved 10/09/2021) Managed by [facility]. Wound irrigation every 1-2 days with dilute Hibiclens. Skin prep with Kerra Max foam and Tegaderm foam around the wound. PICC line with IV antibiotics-treatment completed in early July Pt concerned about recurrent osteo. 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 - Primary Pressure injury of left buttock, stage 4 (H) Lymphedema of both lower extremities Essential hypertension, benign Seizure (H) Other convulsions Morbid obesity -- BMI 55.6 Morbid obesity CEFERINO on CPAP Obstructive sleep apnea (adult) (pediatr ic) Adjustment disorder with depressed mood History of iron deficiency anemia Personal history of diseases of blood an d blood-forming organs Iron deficiency anemia, unspecified iron deficiency anemia type Left foot pain Pain in limb Dermatitis Contact dermatitis and other eczema, due to unspecified cause Foot drop, left Other acquired deformity of ankle and fo ot documented in this encounter Additional Health Concerns Assessment Noted Time PHQ-9 Depression Total Score: 4 04/12/2019 7:03 AM CDT documented as of this encounter Care Teams Deckhand Relationship Specialty Start Date End Date Doris Lai MD PCP - General 05/24/19 11/28/19 [address] [facility] [place] [id number] Chastity Montero MD Dermatology 09/23/14 [address] [facility] [address] [place], [place] [address] Johnnie Alcocer MD Surgeon General Surgery 03/23/[address] [place] [address] Lucero Stevenson Assigned PCP 06/17/18 11/09/19 MD [facility] [address] [place] [address] Danni Marcus, CHANDLER Personal Advocate & 01/09/1901/17 Liaison (PAL) Fernando, Ea Complex 04/23/19 Svetlana Osman, Pharmacist Pharmacotherapy 04/23/19 [facility] [address] [place] [address] Haylie Cheung, Pharmacist Pharmacist 09/11/19 [facility] [address] [place] [address] [address] documented as of this encounter
--- OUTSIDE RECORDS SUMMARY | 2022-06-15 12:58 | XMS_ITS | Encounter Summary ---
:1945 Author Organization [facility] Address [address] [facility] [place] [address] Care Team Providers Name Role Phone Chastity Montero MD Unavailable [phone] Johnnie Alcocer MD Unavailable Lucero Stevenson MD Unavailable [phone] Danni Marcus RN Unavailable Unavailable Mtm, Ea Complex Unavailable Unavailable Svetlana Osman [facility] Unavailable [phone] Haylie Cheung [facility] Unavailable [phone] Doris Lai MD Primary Care Provider Reason for Visit Reason Comments Sleep Apnea Encounter Details Date Type Department Care Team Description 10/04/2019 Care Coordination [facility], [facility] Kendall galvan MD [address] [address] [place] [address] [place], [place] [phone] (Wo rk) [address] [phone] Social History Tobacco Use Types Packs/Day Years [...] organizations such as oriental orthodox groups, unions, fra[employer]weltech or athletic groups, or school groups? How [...] documented as of this encounter Progress Notes Kajal German - 10/04/2019 11:59 PM CDT Please see note regarding patient wanting to resume cpap vendor with [facility]. Faxed copy of order for replacement cpap, and office note 09/23/2019 to [facility]. Patient setup on respironic autopap 2012 at [facility]. Due to change in Medicare suppliers the next year she had to move to a Medicare contracted supplier for her cpap supplies. She would like to move back from [facility] and receive the ordered replacement cpap from [facility]. documented in this encounter Plan of Treatment Upcoming Encounters Date Type Specialty Care Team Description 11/15/2022 Virtual Visit Pharm Haylie Gonzalez, [facility] [address] [facility] [place] [address] (Wo rk) 11/15/2022 Virtual Visit IM/Peds Yane Barraza MD [address] [facility] [place] [address] (Wo rk) 03/03/2023 Virtual Visit Neurology Erlinda Barber MD [address] [facility] [address] [place] [address] (Wo rk) documented as of this encounter Visit Diagnoses Not on filedocumented in this encounter Additional Health Concerns Assessment Noted Time PHQ-9 Depression Total Score: 4 04/12/2019 7:03 AM CDT documented as of this encounter Care Teams District Fire Chief Relationship Specialty Start Date End Date Doris Lai MD PCP - General 05/24/19 11/28/[address] [facility] [address] [place], [place] [id number] Chastity Montero MD Dermatology 09/23/14 [address] [facility] [address] [place], [place] [address] Johnnie Alcocer MD Surgeon General Surgery 03/23/[address] [place], [place] [id number] Lucero Stevenson Assigned PCP 06/17/18 11/09/19 MD [facility]ta [facility] [address] [place], [place] [phone] Danni Marcus, CHANDLER Personal Advocate & 01/09/1901/17 Liaison (PAL) Fernando, Kyle Complex 04/23/19 Svetlana Osman, Pharmacist Pharmacotherapy 04/23/19 [facility] [address] [place], [place] [id number] Haylie Cheung, Pharmacist Pharmacist 09/11/19 [facility] [address] [place] [id number] documented as of this encounter
--- OUTSIDE RECORDS SUMMARY | 2022-06-15 12:58 | XMS_ITS | Encounter Summary ---
:1945 Author Organization [facility] Address [address] [place] [address] Care Team Providers Name Role Phone Chastity Montero MD Unavailable [phone] Johnnie Alcocer MD Unavailable Lucero Stevenson MD Unavailable [phone] Danni Marcus RN Unavailable Unavailable Mtm, Ea Complex Unavailable Unavailable Svetlana Osman [facility] Unavailable [phone] Haylie Cheung [facility] Unavailable [phone] Doris Lai MD Primary Care Provider Encounter Details Date Type Department Care Team Description 09/23/2019 Travel Social History Tobacco Use Types Packs/Day [...] Pharm Haylie Gonzalez, [facility] [address] [facility] [place] [address] (Wo rk) 11/15/2022 Virtual Visit IM/Peds Yane Barraza MD [address] [facility] [place] [address] (Wo rk) 03/03/2023 Virtual Visit Neurology Erlinda Barber MD [address] [place] [address] [address] [place] [address] (Wo rk) documented as of this encounter Visit Diagnoses Not on filedocumented in this encounter Additional Health Concerns Assessment Noted Time PHQ-9 Depression Total Score: 4 04/12/2019 7:03 AM CDT documented as of this encounter Care Teams Strip Machine Tender Relationship Specialty Start Date End Date Doris Lai MD PCP - General 05/24/19 11/28/19 [address] [facility] [place] [address] Chastity Montero MD Dermatology 09/23/[address] [place] [address] [address] [place], [place] [id number] Johnnie Alcocer MD Surgeon General Surgery 03/23/17 [address] [facility] [address] [place] [address] Lucero Stevenson Assigned PCP 06/17/18 11/09/19 MD [facility] [address] [place] [address] Danni Marcus, RN Personal Advocate & 01/09/1901/17 Liaison (PAL) Kyle King Complex 04/23/19 Svetlana Osman, Pharmacist Pharmacotherapy 04/23/19 [facility] [address] [place], [place] [address] Haylie Cheung, Pharmacist Pharmacist 09/11/19 [place] [id number] [place] [address] documented as of this encounter
--- OUTSIDE RECORDS SUMMARY | 2022-06-15 12:58 | XMS_ITS | Encounter Summary ---
:1945 Author Organization [place] Address [address] [place] [address] Care Team Providers Name Role Phone Chastity Montero MD Unavailable [phone] Johnnie Alcocer MD Unavailable Lucero Stevenson MD Unavailable [phone] Danni Marcus RN Unavailable Unavailable Mtm, Ea Complex Unavailable Unavailable Svetlana Osman [facility] Unavailable [phone] Haylie Cheung [facility] Unavailable [phone] Doris Lai MD Primary Care Provider Encounter Details Date Type Department Care Team Description 09/18/2019 Travel Social History Tobacco Use Types Packs/Day [...] Pharm Haylie Gonzalez, [facility] [address] [place] [address] (Wo rk) 11/15/2022 Virtual Visit IM/Peds Yane Barraza MD [address] [facility] [place] [address] (Wo rk) 03/03/2023 Virtual Visit Neurology Erlinda Barber MD [address] [place] [address] 295 [place] [address] (Wo rk) documented as of this encounter Visit Diagnoses Not on filedocumented in this encounter Additional Health Concerns Assessment Noted Time PHQ-9 Depression Total Score: 4 04/12/2019 7:03 AM CDT documented as of this encounter Care Teams Director University Relationship Specialty Start Date End Date Doris Lai MD PCP - General 05/24/19 11/28/19 [address] [place] [address] Chastity Montero MD Dermatology 09/23/[address] [place] [address] 98 [place], [place] [id number] Johnnie Alcocer MD Surgeon General Surgery 03/23/17 [address] [facility] 300 [place] [address] Lucero Stevenson Assigned PCP 06/17/18 11/09/19 MD [facility] [place] 8675 [place] [address] Danni Marcus, RN Personal Advocate & 01/09/1901/17 Liaison (PAL) Kyle King Complex 04/23/19 Svetlana Osman, Pharmacist Pharmacotherapy 04/23/19 [facility] [address] [place], [place] [address] Haylie Cheung, Pharmacist Pharmacist 09/11/19 [place] [address] [place] [address] documented as of this encounter
--- OUTSIDE RECORDS SUMMARY | 2022-06-15 12:58 | XMS_ITS | Encounter Summary ---
:1945 Author Organization [place] Address [address] [place] [address] Care Team Providers Name Role Phone Chastity Montero MD Unavailable [phone] Johnnie Alcocer MD Unavailable Lucero Stevenson MD Unavailable [phone] Danni Marcus RN Unavailable Unavailable Mtm, Ea Complex Unavailable Unavailable Svetlana Osman [facility] Unavailable [phone] Haylie Cheung [facility] Unavailable [phone] Gladino Valdez MD Unavailable Galdino Valdez MD Primary Care Provider Jaiden Holcomb MD Primary Care Provider [phone] Kendall Joseph MD Unavailable Erlinda Barber MD Unavailable Jaiden Holcomb MD Unavailable [phone] Doris Lai MD Primary Care Provider Encounter Details Date Type Department Care Team Description 10/24/2019 [facility] Vascular [address] [place] [address] Social History Tobacco Use Types Packs/Day [...] Notes Telephone Encounter - Sagrario Lara - 10/24/2019 8:23 AM CDT Rx and visit notes faxed to [facility]. documented in this encounter Plan of Treatment Upcoming Encounters Date Type Specialty Care Team Description 11/15/2022 Virtual Visit Pharm D Haylie Cheung, [facility] [address] [facility] [place] [address] (Lena max) 11/15/2022 Virtual Visit IM/Peds Yane Barraza MD [address] [facility] [place] [address] (Lena max) 03/03/2023 Virtual Visit Neurology Erlinda Barber MD [address] [facility] 295 [place], [place] [address] (Wo rk) documented as of this encounter Visit Diagnoses Not on filedocumented in this encounter Additional Health Concerns Assessment Noted Time PHQ-9 Depression Total Score: 4 04/12/2019 7:03 AM CDT documented as of this encounter Care Teams Golf Stud Riveter Relationship Specialty Start Date End Date Galdino Valdez MD PCP - General Family Practice 11/29/19 02/12/20 [address] [place], [place] [phone] Jaiden Holcomb PCP - General Internal Medicine 02/13/2010/03 MD Jayesh [address] [facility] [address] [place] [id number] Doris Lai MD PCP - General 05/24/19 11/28/19 [address] [facility] [address] [place] [id number] Chastity Montero MD Dermatology 09/23/[address] [place] [address] 98 [place], [place] 2[address] Johnnie Alcocer MD Surgeon General Surgery 03/23/17 [address] [facility] 300 [place], [place] [phone] Lucero Stevenson, Assigned PCP 06/17/18 MD TOÑO LOPEZ 8675 [place] [address] Danni Marcus, [place] Personal Advocate & 01/09/1901/17 Liaison (PAL) Fernando, Ea Complex 04/23/19 Svetlana Osman, Pharmacist Pharmacotherapy 04/23/19 [facility] [address] [facility] [address] Haylie Cheung, Pharmacist Pharmacist 09/11/19 [facility] [address] [facility] [address] Galdino Valdez MD Assigned PCP 11/10/19 05/23/20 [address] [place] [address] Opal, Assigned Sleep 05/08/20 03/27/21 Kendall Meehan MD Provider [address] [place] [address] [place] [address] Erlinda Barber MD Assigned Neuroscience 05/08/20 01/26/21 [address] [facility] 295 [place] [address] Jaiden Holcomb Assigned PCP 05/24/20 MD Jayesh 909 [place] [address] documented as of this encounter
--- OUTSIDE RECORDS SUMMARY | 2022-06-15 12:58 | XMS_ITS | Encounter Summary ---
:1945 Author Organization [place] Address [address] [place] [address] Care Team Providers Name Role Phone Chastity Montero MD Unavailable [phone] Johnnie Alcocer MD Unavailable Lucero Stevenson MD Unavailable Danni Marcus RN Unavailable Unavailable Mtm, Ea Complex Unavailable Unavailable Svetlana Osman [facility] Unavailable [phone] Haylie Cheung [facility] Unavailable [phone] Doris Lai MD Primary Care Provider Reason for Visit Reason Onset Date Comments Call Back 09/24/2019 Encounter Details Date Type Department Care Team Description 09/24/2019 Telephone [facility] Doris Agarwal MD Call Back Yarelis [address] [facility] [address] [facility] [place] [address] [address] [place] [address] [phone] Social History Tobacco Use Types Packs/Day Years [...] 05/03/2021 organizations such as latter-day groups, unions, fraInvoTek or athletic groups, or school groups? How [...] Telephone Encounter - Danni Marcus RN - 09/24/2019 1:18 PM CDT Verbal approval given to Nellie with home care for order request below for OT to assist with shower/bathing safety, per protocol. No further questions. Will call back if any other questions or concerns. Ashli Marcus RN Telephone Encounter - Leonardo Wu - 09/24/2019 12:53 PM CDT Order/Referral Request: Who is requesting: [facility] Orders being requested: OT for shower/bath safety Reason service is needed/diagnosis: home care When are orders needed by: as soon as possible Has this been discussed with Provider: No Does patient have a preference on a Group/Provider/Facility? Unknown Does patient have an appointment scheduled: No Where to send Orders: verbal order Okay to leave detailed message? Yes at Other phone number: [phone] Routing documented in this encounter Plan of Treatment Upcoming Encounters Date Type Specialty Care Team Description 11/15/2022 Virtual Visit Haylie Wakefield, [facility] [address] [facility] [address] [place], [place] [phone] (Wo rk) 11/15/2022 Virtual Visit IM/Peds Yane Braraza MD [address] [facility] [place] [id number] (Wo rk) 03/03/2023 Virtual Visit Neurology Erlinda Barber MD [address] [facility] 295 [place], [place] [address] (Wo rk) documented as of this encounter Visit Diagnoses Not on filedocumented in this encounter Additional Health Concerns Assessment Noted Time PHQ-9 Depression Total Score: 4 04/12/2019 7:03 AM CDT documented as of this encounter Care Teams Technician Anatomic Pathology Relationship Specialty Start Date End Date Doris Lai MD PCP - General 05/24/19 11/28/19 [address] [facility] [address] [place], [place] [phone] Chastity Montero MD Dermatology 09/23/14 [address] [facility] 98 [place], [place] [address] Johnnie Alcocer MD Surgeon General Surgery 03/23/[address] [place] [address] Lucero Stevenson Assigned PCP 06/17/18 11/09/19 MD Annetta [address] [address] Danni Marcus, [place] Personal Advocate & 01/09/1901/17 Liaison (PAL) Mt[place]sey, Ea Complex 04/23/19 Svetlana Osman, Pharmacist Pharmacotherapy 04/23/19 [facility] [address] [place], [place] [id number] Haylie Cheung, Pharmacist Pharmacist 09/11/19 [facility] [address] [place] [id number] documented as of this encounter
--- OUTSIDE RECORDS SUMMARY | 2022-06-15 12:59 | XMS_ITS | Encounter Summary ---
:1945 Author Organization [place] Address [address] [place] [address] Care Team Providers Name Role Phone Chastity Montero MD Unavailable [phone] Johnnie Alcocer MD Unavailable Lucero Stevenson MD Unavailable [phone] Danni Marcus RN Unavailable Unavailable MtKyle euceda Complex Unavailable Unavailable Svetlana Osman [facility] Unavailable [phone] Doris Lai MD Primary Care Provider Reason for Visit Reason Onset Date Comments INR RESULTS 09/03/2019 Encounter Details Date Type Department Care Team Description 09/03/2019 Telephone [facility] Doris Agarwal MD INR RESULTS Yarelis [address] [facility] 3[address] [facility] [place] [address] [address] [place] [address] [phone] Social History Tobacco Use Types Packs/Day Years [...] Telephone Encounter - Sasha Rueda RN - 09/03/2019 12:41 PM CST ANTICOAGULATION MANAGEMENT Patient Name: Charlette Brush Date: 09/03/2019 ASSESSMENT /SUBJECTIVE: Today's INR result of 2.7 [...] procedure or cardioversion: No ??? Additional findings: none PLAN: Spoke with kareem/nurse regarding INR result and instructed: Warfarin Dosing Instructions: Continue your current warfarin dose Instructed patient to follow up no later than: 2 weeks Orders given to Homecare nurse/facility to recheck Education provided: Alesha serna verbalizes understanding and agrees to warfarin dosing plan. Instructed to call the Anticoagulation Clinic for any changes, questions or concerns. 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] alf current use of 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 [Z79.01] Anticoagulation Episode Summary INR check location: Preferred lab: EXTERNAL LAB Send INR reminders to: [facility] Comments: 3mg & 10mg tabs - devaughn dose / Interim Home Care qod - Kana [phone] / APPT CARD ONLY Anticoagulation Care Providers Provider Role Specialty Phone number Lucero Stevenson MD Internal Medicine [phone] BARKER OPERATOR documented in this encounter Plan of Treatment Upcoming Encounters Date Type Specialty Care Team Description 11/15/2022 Virtual Visit Pharm D Haylie Cheung, [facility] [address] [facility] [place] [address] (Wo rk) 11/15/2022 Virtual Visit [place] [address] [place] [address] [place] [address] (Wo winter) 03/03/2023 Virtual Visit Neurology Erlinda Barber MD 420 [facility] 295 [place] [address] (Wo rk) documented as of this encounter Procedures Procedure Name Priority Date/Time Associated Diagnosis Comme nts INR Routine 09/03/2019 Results for thi s procedure are in the resu lts section. 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 [facility] [address] [place] [id number] Chastity Montero MD Dermatology 09/23/[address] [place] [address] 98 [place], [place] 52[address] Johnnie Alcocer MD Surgeon General Surgery 03/23/[address] 300 [place], [place] [phone] Lucero Stevenson Assigned PCP 06/17/18 11/09/19 MD Annetta [facility] [address] [place] [address] Danni Marcus, [place] Personal Advocate & 01/09/1901/17 Liaison (PAL) Kyle King Complex 04/23/19 Svetlana Osman, Pharmacist Pharmacotherapy 04/23/19 [facility] [address] [facility] [address] [place] [phone] documented as of this encounter
--- OUTSIDE RECORDS SUMMARY | 2022-06-15 12:59 | XMS_ITS | Encounter Summary ---
:1945 Author Organization [place] Address [facility] [place] [address] Care Team Providers Name Role Phone Chastity Montero MD Unavailable [phone] Johnnie Alcocer MD Unavailable Lucero Stevenson MD Unavailable Danni Marcus RN Unavailable Unavailable Mtm, Ea Complex Unavailable Unavailable Svetlana Osman [facility] Unavailable [phone] Haylie Cheung [facility] Unavailable [phone] Galdino Valdez MD Unavailable Galdino Valdez MD Primary Care Provider Jaiden Holcomb MD Primary Care Provider [phone] Kendall Joseph MD Unavailable Erlinda Barber MD Unavailable Jaiden Holcomb MD Unavailable [phone] Doris Lai MD Primary Care Provider Encounter Details Date Type Department Care Team Description 07/19/2019 [facility] Kenya Carranza, [facility] Vascular Center [place] [address] [facility] [address] [place] [address] Social History Tobacco Use Types [...] Telephone Encounter - Kenya Carranza RN - 07/23/2019 7:54 AM CST Michelle was notified that it is OK to add to the tegaderm foam to the dressing orders. T MACHINE OPERATOR Telephone Encounter - Kenya Carranza RN - 07/19/2019 4:16 PM CST Interim home care nurse called requesting to add tegaderm foam to current wound care orders. She stated that they have been using it because it helps keep the dressings in place and decrease the drainage, it was not ordered by Patience. Automobile Body Repair Supervisor informed her there is no past order for it will need to be consulted by MD or MANAGER STAR first to continue use. F/U with Patience on 07/30/19. Please advise. T MACHINE OPERATOR documented in this encounter Plan of Treatment Upcoming Encounters Date Type Specialty Care Team Description 11/15/2022 Virtual Visit Pharm Haylie Gonzalez, [facility] [address] [address] [place], [place] [phone] (Wo rk) 11/15/2022 Virtual Visit IM/Peds Yane Barraza MD [address] [place] [address] [place], [place] [phone] (Wo rk) 03/03/2023 Virtual Visit Neurology Erlinda Barber MD 420 [facility] 295 [place], [place] [address] (Wo rk) documented as of this encounter Visit Diagnoses Not on filedocumented in this encounter Additional Health Concerns Assessment Noted Time PHQ-9 Depression Total Score: 4 04/12/2019 7:03 AM CDT documented as of this encounter Care Teams Health Educator Relationship Specialty Start Date End Date Galdino Valdez MD PCP - General Family Practice 11/29/19 02/12/20 [address] [place], [place] [phone] Jaiden Holcomb PCP - General Internal Medicine 02/13/2010/03 MD Jayesh [address] [place] [address] [place] [phone] Doris Lai MD PCP - General 05/24/19 11/28/[address] [place] [address] [address] [place] [phone] Chastity Montero MD Dermatology 09/23/14 420 [facility] 98 [place], [place] [address] Johnnie Alcocer MD Surgeon General Surgery 03/23/[address] [place] [address] Lucero Stevenson, Assigned PCP 06/17/18 MD TOÑO LOPEZ [address] [place], [place] [phone] Danni Marcus, RN Personal Advocate & 01/09/1901/17 Liaison (PAL) Fernando, Ea Complex 04/23/19 Svetlana Osman, Pharmacist Pharmacotherapy 04/23/19 [facility] [address] [facility] [address] [place], [place] [phone] Haylie Cheung, Pharmacist Pharmacist 09/11/19 [facility] [address] [facility] [address] [place], [place] [phone] Galdino Valdez MD Assigned PCP 11/10/19 05/23/20 [address] [place], [place] [phone] Opal, Assigned Sleep 05/08/20 03/27/21 Kendall Meehan MD Provider [address] [place], [place] [phone] Erlinda Barber MD Assigned Neuroscience 05/08/20 01/26/21 420 [facility] 295 Provider [place], [place] [phone] Jaiden Holcomb Assigned PCP 05/24/20 MD Jayesh 909 [place] [address] documented as of this encounter
--- OUTSIDE RECORDS SUMMARY | 2022-06-15 12:59 | XMS_ITS | Encounter Summary ---
:1945 Author Organization [place] Address [facility] [place] [address] Care Team Providers Name Role Phone Chastity Montero MD Unavailable [phone] Johnnie Alcocer MD Unavailable Lucero Stevenson MD Unavailable [phone] Danni Marcus RN Unavailable Unavailable Mtm, Ea Complex Unavailable Unavailable Svetlana Osman [facility] Unavailable [phone] Haylie Cheung [facility] Unavailable [phone] Galdino Valdez MD Unavailable Galdino Valdez MD Primary Care Provider Jaiden Holcomb MD Primary Care Provider [phone] Kendall Joseph MD Unavailable Erlinda Barber MD Unavailable Jaiden Holcomb MD Unavailable [phone] Doris Lai MD Primary Care Provider Encounter Details Date Type Department Care Team Description 08/19/2019 [facility] Kenya Carranza, [facility] Vascular Center [place] [address] [facility] [address] [place] [address] Social History Tobacco Use Types [...] encounter Miscellaneous Notes Telephone Encounter - Kenya Carranza, RN - 08/19/2019 2:12 PM CST Interim nurse betting agency manager was wondering what the parameters needed to be for patient to have surgery forflap closure. Per Dr. Steward- She is not a good surgical candidate as the ulcer is too large and not as healthy at this time. Stock Wetter left a message that there is not specific parameters. Her wound probably needs to decrease at least half of the size it currently is. She will need to continue to follow-up monthly. RVISOR MALTED MILK documented in this encounter Plan of Treatment Upcoming Encounters Date Type Specialty Care Team Description 11/15/2022 Virtual Visit Haylie Wakefield, [facility] [address] [place] [address] [place] [address] (Wo rk) 11/15/2022 Virtual Visit IM/Peds Yane Barraza MD [address] [place] [address] [place] [address] (Wo rk) 03/03/2023 Virtual Visit Neurology Erlinda Barber MD 420 [facility] 295 [place], [place] [phone] (Wo rk) documented as of this encounter Visit Diagnoses Not on filedocumented in this encounter Additional Health Concerns Assessment Noted Time PHQ-9 Depression Total Score: 4 04/12/2019 7:03 AM CDT documented as of this encounter Care Teams Home Coordinator Relationship Specialty Start Date End Date Galdino Valdez MD PCP - General Family Practice 11/29/19 02/12/20 [address] [place], [place] [phone] Jaiden Holcomb PCP - General Internal Medicine 02/13/2010/03 MD Jayesh [address] [facility] [address] [place] [phone] Doris Lai MD PCP - General 05/24/19 11/28/[address] [place] [address] [place] [phone] Chastity Montero MD Dermatology 09/23/[address] [place] [address] 98 [place], [place] [address] Johnnie Alcocer MD Surgeon General Surgery 03/23/17 [address] [facility] 300 [place] [address] Lucero Stevenson, Assigned PCP 06/17/18 MD TOÑO LOPEZ [address] [place] [address] Danni Marcus, RN Personal Advocate & 01/09/1901/17 Liaison (PAL) Kyle King Complex 04/23/19 Svetlana Osman, Pharmacist Pharmacotherapy 04/23/19 [facility] [address] [place] [address] Haylie Cheung, Pharmacist Pharmacist 09/11/19 [facility] [address] [place] [address] Galdino Valdez MD Assigned PCP 11/10/19 05/23/20 [address] [place] [address] Opal, Assigned Sleep 05/08/20 03/27/21 Kendall Meehan MD Provider [address] [place] [address] Erlinda Barber MD Assigned Neuroscience 05/08/20 01/26/21 420 [facility] 295 [place] [address] Jiaden Holcomb Assigned PCP 05/24/20 MD Jayesh 909 [place] [address] documented as of this encounter
--- OUTSIDE RECORDS SUMMARY | 2022-06-15 12:59 | XMS_ITS | Encounter Summary ---
:1945 Author Organization [place] Address [address] [place] [address] Care Team Providers Name Role Phone Chastity Montero MD Unavailable [phone] Johnnie Alcocer MD Unavailable Lucero Stevenson MD Unavailable [phone] Danni Marcus RN Unavailable Unavailable Mtm, Ea Complex Unavailable Unavailable Svetlana Osman [facility] Unavailable [phone] Haylie Cheung [facility] Unavailable [phone] Doris Lai MD Primary Care Provider Reason for Visit Reason Onset Date Comments Panel Management 09/03/2019 Encounter Details Date Type Department Care Team Description 09/03/2019 [facility] Svetlana Osman Panel Management Yarelis Girard, [facility] [address] [place] [address] [address] [place] [address] Social History [...] 05/03/2021 organizations such as synagogue groups, unions, fraPetSitnStay or athletic groups, or school groups? How [...] Notes Telephone Encounter - Gisele Reed - 09/06/2019 2:51 PM CST Called spoke to patient, scheduled for 09/11/[address] Valdez & byron [facility] Danica Carreon Team Coodinator UTER ANALYST SUPERVISOR Telephone Encounter - Svetlana Osman [facility] - 09/03/2019 3:50 PM COMPUTER ANALYST SUPERVISOR Looks like this patient was to be scheduled in July for 3 month visit. She saw Dr. Stevenson and I do not think has seen anybody since. Can we call to set up SB5 co-visit? UTER ANALYST SUPERVISOR documented in this encounter Plan of Treatment Upcoming Encounters Date Type Specialty Care Team Description 11/15/2022 Virtual Visit Pharm D Haylie Cheung, [facility] [address] [place] [address] (Lena rk) 11/15/2022 Virtual Visit IM/Peds Ynae Barraza MD [address] [facility] [place] [address] (Lena max) 03/03/2023 Virtual Visit Neurology Erlinda Barber MD 420 [facility] 295 [place] [address] (Wo rk) documented as of this encounter Visit Diagnoses Not on filedocumented in this encounter Additional Health Concerns Assessment Noted Time PHQ-9 Depression Total Score: 4 04/12/2019 7:03 AM CDT documented as of this encounter Care Teams Ultrasonographer Relationship Specialty Start Date End Date Doris Lai MD PCP - General 05/24/19 11/28/[address] [facility] [place] [address] Chastity Montero MD Dermatology 09/23/14 420 [facility] 98 [place], [place] [address] Johnnie Alcocer MD Surgeon General Surgery 03/23/17 [address] [facility] 300 [place], [place] [address] Lucero Stevenson Assigned PCP 06/17/18 11/09/19 MD Annetta [facility]3] 8675 [place], [place] [phone] Danni Marcus, RN Personal Advocate & 01/09/1901/17 Liaison (PAL) Fernando, Ea Complex 04/23/19 Svetlana Osman, Pharmacist Pharmacotherapy 04/23/19 [facility] [address] [place] [id number] Haylie Cheung, Pharmacist Pharmacist 09/11/19 [facility] [address] [place] [id number] documented as of this encounter
--- OUTSIDE RECORDS SUMMARY | 2022-06-15 12:59 | XMS_ITS | Encounter Summary ---
:1945 Author Organization [place] Address [address] [place] [address] Care Team Providers Name Role Phone Chastity Montero MD Unavailable [phone] Johnnie Alcocer MD Unavailable Lucero Stevenson MD Unavailable [phone] Danni Marcus RN Unavailable Unavailable MtKyle euceda Complex Unavailable Unavailable Svetlana Osman [facility] Unavailable [phone] Doris Lai MD Primary Care Provider Reason for Visit Reason Onset Date Comments INR RESULTS 07/30/2019 Encounter Details Date Type Department Care Team Description 07/30/2019 [facility] Doris Agarwal MD INR RESULTS Yarelis 3305 [facility] 3305 [facility] [place] [address] [address] [place] [address] [phone] Social History Tobacco Use Types Packs/Day Years [...] Telephone Encounter - Marimar Bertrand RN - 07/30/2019 12:12 PM CST ANTICOAGULATION MANAGEMENT Patient Name: Charlette Brush Date: 07/30/2019 ASSESSMENT /SUBJECTIVE: Today's INR result of 2.4 [...] findings: None PLAN: Spoke with Kana ( RN-Interim) regarding INR result and instructed: Warfarin Dosing Instructions: Continue your current warfarin dose of 13mg Wed; 10mg all other days Instructed patient to follow up no later than: 3 weeks Education provided: Alesha Roger verbalizes understanding and agrees to warfarin dosing plan. Instructed to call the Anticoagulation Clinic for any changes, questions or concerns. 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] retirement current use of 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 [Z79.01] Anticoagulation Episode Summary INR check location: Preferred lab: EXTERNAL LAB Send INR reminders to: ZHEN [facility] Comments: 3mg & 10mg tabs - devaughn dose / Interim Home Care qod - Kana [phone] / APPT CARD ONLY Anticoagulation Care Providers Provider Role Specialty Phone number Lucero Stevenson MD Internal Medicine [phone] ID TECHNOLOGIST documented in this encounter Plan of Treatment Upcoming Encounters Date Type Specialty Care Team Description 11/15/2022 Virtual Visit Pharm D Haylie Cheung, [facility] [address] [facility] [place] [address] (Wo rk) 11/15/2022 Virtual Visit IM/PedYane Muir MD [address]305 [facility] [place] [address] (Wo winter) 03/03/2023 Virtual Visit Neurology Erlinda Barber MD 420 [facility] 295 [place] [address] (Wo rk) documented as of this encounter Procedures Procedure Name Priority Date/Time Associated Diagnosis Comme nts INR Routine 07/30/2019 Results for thi s procedure are in the resu lts section. documented in this encounter Results (ABNORMAL) INR (07/30/2019) P athologist Signature INR 2.4 (A) 0.90 - 1.10 EXTERNAL LAB Specimen (Source) Anatomical Location Collection Method / Collectio n Time Received Time / Laterality Volume Blood specimen 07/30/2019 (specimen) Resulting Agency Comment homecare Patient Reported LAB - BLOOD ORDERABLES Performing Organization Address City/State/ZIP Code Phon e Number EXTERNAL LAB EXTERNAL LAB External Lab documented in this encounter Visit Diagnoses Diagnosis 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 embolism retirement current use of anticoagulant t herapy documented in this encounter Additional Health Concerns Assessment Noted Time PHQ-9 Depression Total Score: 4 04/12/2019 7:03 AM CDT documented as of this encounter Care Teams Sociology Research Assistant Relationship Specialty Start Date End Date Doris Lai MD PCP - General 05/24/19 11/28/[address] [facility] [address] [place] [phone] Chastity Montero MD Dermatology 09/23/14 420 [facility] 98 [place], [place] [phone] Johnnie Alcocer MD Surgeon General Surgery 03/23/[address] [place], [place] [phone] Lucero Stevenson Assigned PCP 06/17/18 11/09/19 MD Annetta [facility] 8675 [place], [place] [phone] Danni Marcus, RN Personal Advocate & 01/09/1901/17 Liaison (PAL) Fernando, Ea Complex 04/23/19 Svetlana Osman, Pharmacist Pharmacotherapy 04/23/19 [facility] [address] [facility] [place] [address] documented as of this encounter
--- OUTSIDE RECORDS SUMMARY | 2022-06-15 12:59 | XMS_ITS | Encounter Summary ---
:1945 Author Organization [place] Address [facility] [place] [address] Care Team Providers Name Role Phone Chastity Mnotero MD Unavailable [phone] Johnnie Alcocer MD Unavailable Lucero Stevenson MD Unavailable [phone] Danni Marcus RN Unavailable Unavailable Mtm, Ea Complex Unavailable Unavailable Svetlana Osman [facility] Unavailable [phone] Haylie Cheung [facility] Unavailable [phone] Galdino Valdez MD Unavailable Galdino Valdez MD Primary Care Provider Jaiden Holcomb MD Primary Care Provider [phone] Kendall Joseph MD Unavailable Erlinda Barber MD Unavailable Jaiden Holcomb MD Unavailable [phone] Doris Lai MD Primary Care Provider Reason for Visit Reason Comments Medication Question Encounter Details Date Type Department Care Team Description 07/18/2019 [facility] Dora, Medicat ion [facility] MD Ruth Question [address] [facility] [address] INFECTIOUS [place], [place] [facility] [address] [place], [place] [address]AN [facility] [phone] [address] [place] [address] Social History Tobacco Use Types Packs/Day Years [...] this encounter Miscellaneous Notes Telephone Encounter - Ethel Ward CMA - 07/19/2019 1:05 PM CST Based on today's good labs and wound check from home care nurse, PICC was pulled and abx d/c GIRDLER Telephone Encounter - Araceli Major RN - 07/19/2019 8:58 AM CST Michelle, home care nurse calling stating that the pt wound has no odor, no warmth, no redness, however there is still drainage, however the drainage is serosanguinous. There has not been a significant decrease in drainage, per Michelle's report, however she is not seeing sign of infection. GIRDLER Telephone Encounter - Historical Provider - 07/18/2019 10:14 AM CST Patient called back and can be reached at the same number. GIRDLER Telephone Encounter - Ethel Ward CMA - 07/18/2019 10:10 AM CST Voicemail not setup, unable to leave message. Pt called back, informed of below. She understands, home nurse will be in at 7am tomorrow and pt will be going to infusion center for 10am lab draw and picc line care, if ok to pull PICC should call before 10. Called pt per Dr John, base on normal labs and ov from Dr Hameed, manda to d/c abx 07/19/19 However called case CHANDLER Martinez, she is seeing pt today at 3-4pm. States last home nurse visit this past weekend around 07/14/19 the wound odor, redness and drainage has reoccurred. Informed her to give us a call after today's visit with patient for update on how would looks and will check labs tomorrowbefore confirm ending abx. Continue wound care per Vascular orders. Michelle [phone] GIRDLER Telephone Encounter - Historical Provider - 07/18/2019 8:10 AM CST Dora Pt is wondering on ABX plan. Please call her back @ [phone] GIRDLER documented in this encounter Plan of Treatment Upcoming Encounters Date Type Specialty Care Team Description 11/15/2022 Virtual Visit Haylie Wakefield, [place] [address] [place] [address] (Wo rk) 11/15/2022 Virtual Visit IM/Peds Yane Barraza MD [address] [place] [address] [place] [phone] (Wo rk) 03/03/2023 Virtual Visit Neurology Erlinda Barber MD 420 [facility] 295 [place], [place] [address] (Wo rk) documented as of this encounter Visit Diagnoses Not on filedocumented in this encounter Additional Health Concerns Assessment Noted Time PHQ-9 Depression Total Score: 4 04/12/2019 7:03 AM CDT documented as of this encounter Care Teams Swing Frame Grinder Operator Relationship Specialty Start Date End Date Galdino Valdez MD PCP - General Family Practice 11/29/19 02/12/20 [address] [place], [place] [phone] Jaiden Holcomb PCP - General Internal Medicine 02/13/2010/03 MD Jayesh [address] [place] [address] [address] [place] [phone] Doris Lai MD PCP - General 05/24/19 11/28/[address] [place] [address] [place] [address] Chastity Montero MD Dermatology 09/23/[address] [place] [address] 98 [place], [place] [address] Johnnie Alcocer MD Surgeon General Surgery 03/23/17 [address] [place], [place] [phone] Lucero Stevenson, Palak PCP 06/17/18 MD TOÑO LOPEZ [address] [place] [phone] Danni Marcus, RN Personal Advocate & 01/09/1901/17 Liaison (PAL) Mtm, Ea Complex 04/23/19 Svetlana Osman, Pharmacist Pharmacotherapy 04/23/19 [facility] [address] [place], [place] [phone] Haylie Cheung, Pharmacist Pharmacist 09/11/19 [facility] [address] [place], [place] [phone] Galdino Valdez MD Assigned PCP 11/10/19 05/23/20 [address] [place] [address] Opal, Assigned Sleep 05/08/20 03/27/21 Kendall Meehan MD Provider [address] [place] [address] Erlinda Barber MD Assigned Neuroscience 05/08/20 01/26/21 [address] [facility] [address] [place] [address] Jaiden Holcomb Assigned PCP 05/24/20 MD Jayesh 909 [place] [address] documented as of this encounter
--- OUTSIDE RECORDS SUMMARY | 2022-06-15 12:59 | XMS_ITS | Encounter Summary ---
:1945 Author Organization [place] Address [address] [place] [address] Care Team Providers Name Role Phone Chastity Montero MD Unavailable [phone] Johnnie Alcocer MD Unavailable Lucero Stevenson MD Unavailable [phone] Danni Marcus RN Unavailable Unavailable MtKyle euceda Complex Unavailable Unavailable Svetlana Osman [facility] Unavailable [phone] Doris Lai MD Primary Care Provider Reason for Visit Reason Onset Date Comments INR RESULTS 08/20/2019 Encounter Details Date Type Department Care Team Description 08/20/[address] [facility] Doris Agarwal MD INR RESULTS Yarelis 3305 [facility] 3305 [facility] [place] [address] [address] [place] [address] [phone] Social History Tobacco Use Types Packs/Day Years [...] this encounter Miscellaneous Notes Telephone Encounter - Chayo Francisco RN - 08/20/2019 2:16 PM CST ANTICOAGULATION MANAGEMENT Patient Name: Charlette Brush Date: 08/20/2019 ASSESSMENT /SUBJECTIVE: Today's INR result of 1.9 [...] procedure or cardioversion: No ??? Additional findings: yes-needs refill of 10 mg warfarin. Sent to pharmacy. PLAN: Spoke with Michelle Bran Home care nurse regarding INR result and instructed: Warfarin Dosing Instructions: Continue your current warfarin dose Instructed patient to follow up no later than: 2 weeks Orders given to Homecare nurse/facility to recheck Education provided: Alesha Martinez verbalizes understanding and agrees to warfarin dosing plan. Instructed to call the Anticoagulation Clinic for any changes, questions or concerns. (#[phone]) OBJECTIVE: INR Date Value Ref Range Status 08/20/2019 1.9 (A) 0.90 - 1.10 Final Anticoagulation Summary As of 08/20/2019 INR goal: 2.0-3.0 TTR: 80.2 % (1 y) INR used for dosin.9! 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] medical terminologist current use of 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 [Z79.01] Anticoagulation Episode Summary INR check location: Preferred lab: EXTERNAL LAB Send INR reminders to: [facility] Comments: 3mg & 10mg tabs - devaughn dose / Interim Home Care qod - Kana [phone] / APPT CARD ONLY Anticoagulation Care Providers Provider Role Specialty Phone number Lucero Stevenson MD Internal Medicine [phone] LESOFT PROGRAMMER documented in this encounter Plan of Treatment Upcoming Encounters Date Type Specialty Care Team Description 11/15/2022 Virtual Visit Pharm Haylie Gonzalez, [facility] 14[address] [facility] [place] [address] (Wo rk) 11/15/2022 Virtual Visit [place] [address] [place] [address] [place] [address] (Lena max) 03/03/2023 Virtual Visit Neurology Erlinda Barber MD 420 [facility] 295 [place] [address] (Wo rk) documented as of this encounter Procedures Procedure Name Priority Date/Time Associated Diagnosis Comme nts INR Routine 08/20/2019 Results for thi s procedure are in the resu lts section. documented in this encounter Results (ABNORMAL) INR (08/20/2019) P athologist Signature INR 1.9 (A) 0.90 - 1.10 EXTERNAL LAB Specimen (Source) Anatomical Location Collection Method / Collectio n Time Received Time / Laterality Volume Blood specimen 08/20/2019 (specimen) Resulting Agency Comment Home care Patient Reported LAB - BLOOD ORDERABLES Performing Organization Address City/State/ZIP Code Phon e Number EXTERNAL LAB EXTERNAL LAB External Lab documented in this encounter Visit Diagnoses Diagnosis residential current use of anticoagulant t herapy documented in this encounter Additional Health Concerns Assessment Noted Time PHQ-9 Depression Total Score: 4 04/12/2019 7:03 AM CDT documented as of this encounter Care Teams Curriculum Supervisor Relationship Specialty Start Date End Date Doris Lai MD PCP - General 05/24/19 11/28/19 [address] [facility] [address] [place] [phone] Chastity Montero MD Dermatology 09/23/[address] [place] [address] 98 [place], [place] [address] Johnnie Alcocer MD Surgeon General Surgery 03/23/[address] [place], [place] [phone] Lucero Stevenson Assigned PCP 06/17/18 11/09/19 MD Annetta [facility] [address] [place] [address] Danni Marcus, CHANDLER Personal Advocate & 01/09/1901/17 Liaison (PAL) Kyle King Complex 04/23/19 Svetlana Osman, Pharmacist Pharmacotherapy 04/23/19 [facility] [address] [facility] [address] [place] [phone] documented as of this encounter
--- OUTSIDE RECORDS SUMMARY | 2022-06-15 12:59 | XMS_ITS | Encounter Summary ---
:1945 Author Organization [place] Address [address] [place] [address] Care Team Providers Name Role Phone Chastity Montero MD Unavailable [phone] Johnnie Alcocer MD Unavailable Lucero Stevenson MD Unavailable [phone] Danni Marcus RN Unavailable Unavailable Mtm, Ea Complex Unavailable Unavailable Svetlana Osman [facility] Unavailable [phone] Haylie Cheung [facility] Unavailable [phone] Galdino Valdez MD Unavailable Galdino Valdez MD Primary Care Provider Jaiden Holcomb MD Primary Care Provider [phone] Kendall Joseph MD Unavailable Erlinda Barber MD Unavailable Jaiden Holcomb MD Unavailable [phone] Doris Lia MD Primary Care Provider Encounter Details Date Type Department Care Team Description 07/23/2019 [facility] Kenya Carranza , shrimp peeling machine operator Center [address] [place] [address] Social History Tobacco Use Types [...] Haylie Cheung, [facility] [address] [facility] [place] [address] (Wo rk) 11/15/2022 Virtual Visit [place] [address] [place] [address] [place] [address] (Wo rk) 03/03/2023 Virtual Visit Neurology Erlinda Barber MD 420 [facility] 295 [place] [address] (Wo rk) documented as of this encounter Visit Diagnoses Not on filedocumented in this encounter Additional Health Concerns Assessment Noted Time PHQ-9 Depression Total Score: 4 04/12/2019 7:03 AM CDT documented as of this encounter Care Teams Pediatric Critical Care Nurse Relationship Specialty Start Date End Date Galdino Valdez MD PCP - General Family Practice 11/29/19 02/12/20 [address] [place], [place] [phone] Jaiden Holcomb PCP - General Internal Medicine 02/13/2010/03 MD Jayesh [address] [facility] [address] [place], [place] [phone] Doris Lai MD PCP - General 05/24/19 11/28/[address] [place] [address] Chastity Montero MD Dermatology 09/23/14 420 [facility] 98 [place], [place] [address] Johnnie Alcocer MD Surgeon General Surgery 03/23/17 [address] [facility] 300 [place] [address] Lucero Stevenson, Assigned PCP 06/17/18 MD TOÑO LOPEZ [address]75 [place] [address] Danni Marcus, CHANDLER Personal Advocate & 01/09/1901/17 Liaison (PAL) Fernando, Ea Complex 04/23/19 Svetlana Osman, Pharmacist Pharmacotherapy 04/23/19 [facility] [address] [place], [place] [phone] Haylie Cheung, Pharmacist Pharmacist 09/11/19 [facility] [address] [place], [place] [address] Galdino Valdez MD Assigned PCP 11/10/19 05/23/20 [address] [place] [address] Opal, Assigned Sleep 05/08/20 03/27/21 Kendall Meehan MD Provider [address] [place], [place] [phone] Erlinda Barber MD Assigned Neuroscience 05/08/20 01/26/21 420 [facility] 295 [place] [address] Jaiden Holcomb Assigned PCP 05/24/20 MD Jayesh 909 [place] [address] documented as of this encounter
--- OUTSIDE RECORDS SUMMARY | 2022-06-15 12:59 | XMS_ITS | Encounter Summary ---
:1945 Author Organization [place] Address [address] [place] [address] Care Team Providers Name Role Phone Chastity Montero MD Unavailable [phone] Johnnie Alcocer MD Unavailable Lucero Stevenson MD Unavailable [phone] Danni Marcus RN Unavailable Unavailable Mtkinsey, Kyle Complex Unavailable Unavailable Svetlana Osman [facility] Unavailable Doris Lai MD Primary Care Provider Encounter Details Date Type Department Care Team Description 07/19/2019 Travel Social History Tobacco Use Types Packs/Day [...] [facility] [address] [facility] [address] [place] [phone] (Wo rk) 11/15/2022 Virtual Visit IM[place] [address] [place] [address] [place] [address] (Wo rk) 03/03/2023 Virtual Visit Neurology Erlinda Barber MD [address] [place] [address] 295 [place], [place] [address] (Wo rk) documented as of this encounter Visit Diagnoses Not on filedocumented in this encounter Additional Health Concerns Assessment Noted Time PHQ-9 Depression Total Score: 4 04/12/2019 7:03 AM CDT documented as of this encounter Care Teams Renal Medicine Specialist Relationship Specialty Start Date End Date Doris Lai MD PCP - General 05/24/19 11/28/19 [address] [facility] [address] [place] [phone] Chastity Montero MD Dermatology 09/23/[address] [place] [address] 98 [place], [place] [address] Johnnie Alcocer MD Surgeon General Surgery 03/23/[address] [place] [address] Lucero Stevenson Assigned PCP 06/17/18 11/09/19 MD TOÑO Littlejohn WARREN [address] [place] [address] Danni Marcus, RN Personal Advocate & 01/09/1901/17 Liaison (PAL) Fernando, Ea Complex 04/23/19 Svetlana Osman, Pharmacist Pharmacotherapy 04/23/19 [facility] [address] [facility] [place] [address] documented as of this encounter
--- OUTSIDE RECORDS SUMMARY | 2022-06-15 12:59 | XMS_ITS | Encounter Summary ---
:1945 Author Organization [facility] Address [facility] [place] [address] Care Team Providers Name Role Phone Chastity Montero MD Unavailable [phone] Johnnie Alcocer MD Unavailable Lucero Stevenson MD Unavailable [phone] Danni Marcus RN Unavailable Unavailable Mtm, Ea Complex Unavailable Unavailable Svetlana Osman [facility] Unavailable [phone] Doris Lai MD Primary Care Provider Reason for Visit Reason Comments Port Draw Encounter Details Date Type Department Care Team Description 07/19/2019 Infusion Therapy [facility] Residential Visit Cancer Center MD Ruth (Primary Dx) [facility] INFECTIOUS [facility] Medical [facility] [address] [place] [address] [facility] [address] [place] [address] [phone] Social History Tobacco Use Types Packs/Day Years [...] 05/03/2021 organizations such as rastafari groups, unions, [employer] or athletic groups, or school groups? [...] documented as of this encounter Progress Notes Kristie Blanton RN - 07/19/2019 10:00 AM CST Infusion Nursing Note: Charlette Brush presents today for lab draw and PICC removal. Patient seen by provider today: No Conduit Installer present during visit today: Not Applicable. Note: Verbal order from MD to remove PICC line today. Intravenous Access: PICC. Treatment Conditions: Lab Results Component Value Date HGB 13.5 07/19/2019 Lab Results Component Value Date WBC 5.6 07/19/2019 Lab Results Component Value Date ANEU 3.6 07/19/2019 Lab Results Component Value Date PLT 219 07/19/2019 Lab Results Component Value Date NA 141 07/12/2019 Lab Results Component Value Date POTASSIUM 4.2 07/12/2019 Lab Results Component Value Date MAG 1.8 10/28/2017 Lab Results Component Value Date CR 0.50 07/12/2019 Lab Results Component Value Date TOMA 8.9 07/12/2019 Lab Results Component Value Date BILITOTAL 0.5 03/15/2019 Lab Results Component Value Date ALBUMIN 3.2 03/15/2019 Lab Results Component Value Date ALT 25 03/15/2019 Lab Results Component Value Date AST 24 03/15/2019 Post Infusion Assessment: Site patent and intact, free from redness, edema or discomfort. No evidence of extravasations. Access discontinued per protocol. Discharge Plan: Patient discharged in stable condition accompanied by: self. Departure Mode: Ambulatory. Kristie Blanton RN RAM DEVELOPER documented in this encounter Plan of Treatment Upcoming Encounters Date Type Specialty Care Team Description 11/15/2022 Virtual Visit Pharm D Haylie Cheung, [facility] [address] [facility] [place] [address] (Wo rk) 11/15/2022 Virtual Visit IM/Peds Yane Barraza MD [address] [facility] [place] [address] (Wo rk) 03/03/2023 Virtual Visit Neurology Erlinda Barber MD [address] [facility] [address] [place] [address] (Wo rk) documented as of this encounter Procedures Procedure Name Priority Date/Time Associated Comments Diagnosis CBC WITH PLATELETS & Routine 07/19/2019 10:10 [facility] Results for this DIFFERENTIAL AM PROGRAM DEVELOPER procedure are i n the results section. CRP INFLAMMATION Routine 07/19/2019 10:10 [facility] Res ults for this AM PROGRAM DEVELOPER procedure are i n the results section. BASIC METABOLIC PANEL Routine 07/19/2019 10:10 [facility] e Results for this AM PROGRAM DEVELOPER procedure are i n the results section. documented in this encounter Results CRP inflammation (07/19/2019 10:10 AM PROGRAM DEVELOPER) athologist Signature CRP Inflammation 4.5 0.0 - 8.0 07/19/2019 [facility] mg/L 10:31 AM PROGRAM DEVELOPER [facility] Specimen Anatomical Collection Method Collection Time Receive d Time (Source) Location / / Volume Laterality Blood specimen 07/19/2019 10:10 0 (specimen) AM PROGRAM DEVELOPER 10:12 AM PROGRAM DEVELOPER Ruth John MD LAB - BLOOD ORDERABLES Performing Organization Address City/State/ZIP Code Phon e Number M [facility] [address] [place], [place] [address] [facility] [address] [place], [place] [address] [facility] [phone] (ABNORMAL) Basic metabolic panel (07/19/2019 10:10 AM PROGRAM DEVELOPER) Analysis Performed At Patho logist Time Signature Sodium 141 133 - 144 07/19/2019 [facility] mmol/L 10:24 AM [facility] Potassium 4.1 3.4 - 5.3 07/19/2019 [facility] mmol/L 10:24 AM [facility] Chloride 110 (H) 94 - 109 07/19/2019 [facility] mmol/L 10:24 AM [facility] Carbon Dioxide 26 20 - 32 07/19/2019 [facility] mmol/L 10:31 AM [facility] Anion Gap 5 3 - 14 07/19/2019 [facility] mmol/L 10:31 AM [facility] Glucose 97 70 - 99 07/19/2019 [facility] mg/dL 10:31 AM [facility] Urea Nitrogen 22 7 - 30 07/19/2019 [facility] mg/dL 10:31 AM [facility] Creatinine 0.46 (L) 0.52 - 07/19/2019 [facility] 1.04 mg/dL 10:31 AM [facility] GFR Estimate >90 >60 07/19/2019 [facility] mL/min/{1. 10:31 AM [facility] 73_m2} HOSPITAL Comment: Non GFR Calc Starting 07/03/2018, serum creatinine ba sed estimated GFR (eGFR) will be calculated using the Chronic Kidney Dise [facility] Epidemiology Collaboration (CKD-EPI) equation. GFR Estimate If >90 >60 mL/min/{1.73_m2} 07/19/2019 10 :31 AM [facility] Comment: GFR Calc Starting 07/03/2018, serum creatinine ba sed estimated GFR (eGFR) will be calculated using the Chronic Kidney Dise [facility] Epidemiology Collaboration (CKD-EPI) equation. Calcium 8.6 8.5 - 10.1 mg/dL 07/19/2019 10:31 AM [facility] Specimen Anatomical Collection Method Collection Time Receive d Time (Source) Location / / Volume Laterality Blood specimen 07/19/2019 10:10 0 (specimen) AM PROGRAM DEVELOPER 10:12 AM [facility] Ruth John MD LAB - BLOOD ORDERABLES Performing Organization Address City/State/ZIP Code Phon e Number M [place] [address] [address] [place], [place] [address] [facility] [address] [phone] CBC with platelets differential (07/19/2019 10:10 AM [facility]) [facility] gist Method Time Signature WBC 5.6 4.0 - 07/19/2019 [facility] 11.0 10:15 AM [facility] 10e9/L [facility] RBC Count 4.49 3.8 - 5.2 07/19/2019 [facility] 10e12/L 10:15 AM [facility] Hemoglobin 13.5 11.7 - 07/19/2019 [facility] 15.7 g/dL 10:15 AM [facility] Hematocrit 42.2 35.0 - 07/19/2019 [facility] 47.0 % 10:15 AM [facility] MCV 94 78 - 100 07/19/2019 [facility] fl 10:15 AM [facility] MCH 30.1 26.5 - 07/19/2019 [facility] 33.0 pg 10:15 AM [facility] MCHC 32.0 31.5 - 07/19/2019 [facility] 36.5 g/dL 10:15 AM [facility] RDW 14.0 10.0 - 07/19/2019 [facility] 15.0 % 10:15 AM [facility] Platelet Count 219 150 - 450 07/19/2019 [facility] 10e9/L 10:15 AM [facility] Diff Method Automated 07/19/2019 [facility] Method 10:15 AM [facility] % Neutrophils 63.4 % 07/19/2019 [facility] 10:15 AM [facility] % Lymphocytes 19.6 % 07/19/2019 [facility] 10:15 AM [facility] % Monocytes 9.3 % 07/19/2019 [facility] 10:15 AM [facility] % Eosinophils 6.4 % 07/19/2019 [facility] 10:15 AM [facility] % Basophils 0.9 % 07/19/2019 [facility] 10:15 AM [facility] % Immature 0.4 % 07/19/2019 [facility] Granulocytes 10:15 AM [facility] Nucleated RBCs 0 0 /100 07/19/2019 [facility] 10:15 AM [facility] Absolute 3.6 1.6 - 8.3 07/19/2019 [facility] Neutrophil 10e9/L 10:15 AM [facility] Absolute 1.1 0.8 - 5.3 07/19/2019 [facility] Lymphocytes 10e9/L 10:15 AM [facility] Absolute 0.5 0.0 - 1.3 07/19/2019 [facility] Monocytes 10e9/L 10:15 AM [facility] Absolute 0.4 0.0 - 0.7 07/19/2019 [facility] Eosinophils 10e9/L 10:15 AM [facility] Absolute 0.1 0.0 - 0.2 07/19/2019 [facility] Basophils 10e9/L 10:15 AM [facility] Abs Immature 0.0 0 - 0.4 07/19/2019 [facility] Granulocytes 10e9/L 10:15 AM [facility] Absolute 0.0 07/19/2019 [facility] Nucleated RBC 10:15 AM [facility] Specimen Anatomical Collection Method Collection Time Receive d Time (Source) Location / / Volume Laterality Blood specimen 07/19/2019 10:10 0 (specimen) AM PROGRAM DEVELOPER 10:12 AM PROGRAM DEVELOPER Ruth John MD LAB - BLOOD ORDERABLES Performing Organization Address City/State/ZIP Code Phon e Number M [facility] [address] [place] [address] [facility] [address] [phone] documented in this encounter Visit Diagnoses Diagnosis [facility] - Primary notesas part of the [facility] wor kflow to capture care coordination pl documented in this encounter Additional Health Concerns Assessment Noted Time PHQ-9 Depression Total Score: 4 04/12/2019 7:03 AM CDT documented as of this encounter Care Teams Pig Sticker Relationship Specialty Start Date End Date Doris Lai MD PCP - General 05/24/19 11/28/19 [address] [facility] [place] [id number] Chastity Montero MD Dermatology 09/23/14 [address] [facility] [address] [place], [place] [id number] Johnnie Alcocer MD Surgeon General Surgery 9/7/[address] [place], [place] [address] Lucero Stevenson Assigned PCP 06/17/18 11/09/19 [facility] [address] [place] [address] Danni Marcus, CHANDLER Personal Advocate & 01/09/1901/17 Liaison (PAL) Fernando, Ea Complex 04/23/19 Svetlana Osman, Pharmacist Pharmacotherapy 04/23/19 [facility] [address] [facility] [place] [address] documented as of this encounter
--- OUTSIDE RECORDS SUMMARY | 2022-06-15 12:59 | XMS_ITS | Encounter Summary ---
:1945 Author Organization [facility] Address [address] [place] [address] Care Team Providers Name Role Phone Chastity Montero MD Unavailable [phone] Johnnie Alcocer MD Unavailable Lucero Stevenson MD Unavailable [phone] Danni Marcus RN Unavailable Unavailable Mtkinsey, Kyle Complex Unavailable Unavailable Svetlana Osman [facility] Unavailable [phone] Doris Lai MD Primary Care Provider Encounter Details Date Type Department Care Team Description 08/19/2019 Telephone [facility] Doris Agarwal MD [place] [address] [facility] [address] [facility] [place] [address] [address] [place] [address] [phone] Social History Tobacco Use Types Packs/Day Years [...] Telephone Encounter - Danni Marcus RN - 08/19/2019 4:36 PM CST Verbal approval given for orders for skilled nurse and home health aide per Dr Lai. No further questions. Will call back if any other questions or concerns. Ashli Marcus RN FABRICATOR Telephone Encounter - Doris Lai MD - 08/19/2019 4:29 PM CST Agree with orders for home health care. Doris Lai MD Internal Medicine-Pediatrics FABRICATOR Telephone Encounter - Agatha Cantrell MA - 08/19/2019 3:17 PM LEAD FABRICATOR Routing to PCP Agatha Freeman MA 3:17 PM 08/19/2019 FABRICATOR Telephone Encounter - Lesvia Casanova - 08/19/2019 3:10 PM CST Reason for call: Home Healthcare Reason for Call: Home Health Care Michelle with [facility] called regarding (reason for call): req verbal orders Orders are needed for this patient. Skilled and HH Aid [facility]: daily for 2 weeks hh aid-twice a week for 2 weeks Phone Number Homecare Nurse can be reached at: [phone] Can we leave a detailed message on this number? YES Best Time: any Call taken on 08/19/2019 at 3:10 PM by Lesvia Casanova FABRICATOR documented in this encounter Plan of Treatment Upcoming Encounters Date Type Specialty Care Team Description 11/15/2022 Virtual Visit Pharm D Haylie Cheung, [facility] [address] [facility] [address] [place], [place] [id number] (Wo rk) 11/15/2022 Virtual [place] [address] [place] [address] [place] [phone] (Wo rk) 03/03/2023 Virtual Visit Neurology Erlinda Barber MD [address] [place] [address] [address] [place], [place] [address] (Wo rk) documented as of this encounter Visit Diagnoses Not on filedocumented in this encounter Additional Health Concerns Assessment Noted Time PHQ-9 Depression Total Score: 4 04/12/2019 7:03 AM CDT documented as of this encounter Care Teams [employer] Sprayer Relationship Specialty Start Date End Date Doris Lai MD PCP - General 05/24/19 11/28/[address] [place] [address] [place] [address] Chastity Montero MD Dermatology 09/23/[address] [place] [address] [address] [place], [place] [id number] Johnnie Alcocer MD Surgeon General Surgery 03/23/17 [address] [facility] [address] [place] [address] Lucero Stevenson Assigned PCP 06/17/18 11/09/19 MD TOÑO [place] [address] [place] [address] Danni Marcus, RN Personal Advocate & 01/09/1901/17 Liaison (PAL) Kyle King Complex 04/23/19 Svetlana Osman, Pharmacist Pharmacotherapy 04/23/19 [facility] [address] [facility] [place] [address] documented as of this encounter
--- OUTSIDE RECORDS SUMMARY | 2022-06-15 12:59 | XMS_ITS | Encounter Summary ---
:1945 Author Organization [place] Address [address] [place] [address] Care Team Providers Name Role Phone Chastity Montero MD Unavailable [phone] Johnnie Alcocer MD Unavailable Lucero Stevenson MD Unavailable Danni Marcus RN Unavailable Unavailable Mtm, Ea Complex Unavailable Unavailable Svetlana Osman [facility] Unavailable [phone] Haylie Cheung [facility] Unavailable [phone] Galdino Valdez MD Unavailable Galdino Valdez MD Primary Care Provider Jaiden Holcomb MD Primary Care Provider [phone] Kendall Joseph MD Unavailable Erlinda Barber MD Unavailable Jaiden Holcomb MD Unavailable [phone] Doris Lai MD Primary Care Provider Reason for Visit Reason Comments Other Left IT ulcer Encounter Details Date Type Department Care Team Description 07/30/2019 Office Visit - M [facility] Patience Toussaint Pressu re injury of left ischium, stage 4 (H); [facility] TASSEL MAKER Morbid obesity with BMI of 50.0-59.9, ad ult (H); [place] [address] [place] Hypoalbuminemia [address] [facility] [address] [place] [address] [phone] Social History Tobacco Use Types Packs/Day Years [...] Sign Reading Time Taken Comments Blood Pressure 128/76 07/30/2019 1:45 PM ASSOCIATE PROFESSOR OF LIBRARY MEDIA Pulse 68 07/30/2019 1:45 PM ASSOCIATE PROFESSOR OF LIBRARY MEDIA Temperature 36.4 ??C (97.5 ??F) 07/30/2019 1:45 PM ASSOCIATE PROFESSOR OF LIBRARY MEDIA Respiratory Rate 20 07/30/2019 1:45 PM ASSOCIATE PROFESSOR OF LIBRARY MEDIA Oxygen Saturation - - Inhaled Oxygen Concentration - - Weight - - Height - - Body Mass Index - - documented in this encounter Progress Notes Patience Toussaint, VIANEY - 07/30/2019 2:20 PM CST Follow up Vascular Visit Date of Service:07/30/2019 Date Last Seen: 06/11/2019; 07/19/2019 Chief Complaint: 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 They arrive today with her friend. They are currently using aquacel ag and tegaderm foam to the wounds. Using nystatin powder prn This is being done by home care daily. She completed 4 weeks of continuous IV unasyn therapy for treatment of osteomyelitis; she felt this helped the drainage and odor; now that she is off she is now noticing increase in odor and drainage. She developed intensely itchy rashfrom the antibiotics. She has not tolerated a wound vac in the past; this continuously sheared off and failed. She is requesting new seat cushions; she will pay oop for these; would like 3 of these. She has a low air loss mattress at home. They are feeling well today. Denies fevers, chills. No shortness of breath. Allergies: Cephalexin; Ciprofloxacin; Clindamycin; Lanolin; Lisinopril; Mupirocin; Neomycin; and Penicillins Medications: Current Outpatient Medications: ??? acetaminophen (TYLENOL) 325 MG tablet, Take 975 mg by mouth every 8 (eight) hours as needed for pain., Disp: , Rfl: ??? ascorbic acid, vitamin C, (VITAMIN C) 500 MG tablet, Take 500 mg by mouth., Disp: , Rfl: ??? atenolol (TENORMIN) 25 MG tablet, Take 25 mg by mouth 2 (two) times a day., Disp: , Rfl: ??? calcium polycarbophil (FIBERCON) 625 mg tablet, Take 1,250 mg by mouth 3 (three) times a day., Disp: , Rfl: ??? [...] mg by mouth., Disp: , Rfl: ??? furosemide (LASIX) 40 MG tablet, Take 20-40 mg by mouth., Disp: , Rfl: ??? hydrocortisone 2.5 % ointment, Apply topically 2 (two) times a day., Disp: , Rfl: ??? levETIRAcetam (KEPPRA) 500 MG tablet, Take 500 mg by mouth 2 (two) times a day. , Disp: , Rfl: ??? losartan (COZAAR) 50 MG tablet, Take 50 mg by mouth daily., Disp: , Rfl: ??? tawiutctcqye-ofznfkob-qvaxty (CEROVITE SENIOR) tablet, Take 1 tablet by mouth at bedtime., Disp:, Rfl: ??? nystatin (MYCOSTATIN) cream, Apply topically., Disp: , Rfl: ??? sodium hypochlorite (DAKIN'S, HALF-STRENGTH,) external solution, Irrigate with as directed daily., Disp: , Rfl: ??? warfarin (COUMADIN) 10 MG tablet, Take 10 mg by mouth daily., Disp: , Rfl: ??? ampicillin-sulbactam (UNASYN) 3 gram SolR, , Disp: , Rfl: History: Past Medical History: Diagnosis Date ??? [...] Patient has appointment with Retina Specialist at [facility] on 01/11. 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 ??? Morbid obesity (H) ??? [...] [facility] at [facility] in [place] per patient request. She has contact i [...] and confirm.) ??? Weakness left lower limb Physical Exam: BP 128/76 Pulse 68 Temp 97.5 ??F (36.4 ??C) Resp 20 General: Patient presents to clinic in no apparent distress. Head: normocephalic atraumatic Psychiatric: Alert and oriented x3. Respiratory: unlabored breathing; no cough Integumentary: Skin is uniformly warm, dry and pink. Wound #1 Location: left ischium Size: 4.5L x 5W x 3depth. No sinus tract present, Wound base: viableNo undermining present. Wound is full thickness. There is moderate drainage. Periwound: no denudement, erythema, induration, maceration or warmth. Circumferential volume measures: No flowsheet data found. Ulceration(s)/Wound(s): VASC Wound 05/15/19 Buttocks (Active) Pre Size Length 4.5 07/30/2019 1:00 PM Pre Size Width 5 07/30/2019 1:00 PM Pre Size Depth 3 07/30/2019 1:00 PM Pre Total Sq cm 22.5 07/30/2019 1:00 PM Lab Values Lab Results Component Value Date SEDRATE 25 (H) 06/04/2019 Lab Results Component Value Date CREATININE 0.62 06/04/2019 No results found for: HGBA1C Lab Results Component Value Date BUN 23 06/04/2019 Lab Results Component Value Date ALBUMIN 3.3 (L) 06/04/2019 No results found for: [id number] Impression: 1. Pressure injury of left ischium, stage 4 (H) Supply - Other 2. Morbid obesity with BMI of 50.0-59.9, adult (H) Supply - Other 3. Hypoalbuminemia Supply - Other Are any of these wounds new today: [...] decrease edge senescence. Total excisional debridement was 22.5 sq cm from the epidermis/dermis area, into the subcutaneous tissue and into the muscle/fascia with a depth of 3 cm. Ulcers were improved afterwards and paper cleaner. Measures were unchanged after debridement. 2. Wound treatment: wound treatment will include irrigation and dressings to promote autolytic debridement which will include:will continue home care; continue daily due to location of wound; keeping dressing in place is very difficult; will have her see Dr. Steward for consideration of flap closure; will continue hibiclens; nystatin to rash prn; aquacel ag to the wound; cover with tegaderm + foam; ID has signed off; completed IV treatment of osteomyelitis Stable wound 3. Edema: na. 4. Nutrition: working on diet and exercise for weight loss 5. Offloading: has low air loss mattress; requesting new cushions; rx written for this; most likelynot covered by insurance Patient will follow up with Dr. Steward in 2-3 weeks for reevaluation. They were instructed to call the clinic sooner with any signs or symptoms of infection or any further questions/concerns. Answered all questions. Patience Toussaint DNP, RN, HANDYMAN, CWOCN, CFCN, CLT [facility] [phone] This note was electronically signed by Patience Toussaint CIATE PROFESSOR OF LIBRARY MEDIA Celina Wells - 07/30/2019 2:20 PM CST Patient will submit order for cushion. If she is unable to find a place she will call and have clinic submit order to supply company.patient was a given copy of cushion order CIATE PROFESSOR OF LIBRARY MEDIA documented in this encounter Miscellaneous Notes Patient Instructions - HE - Patience Toussaint NP - 07/30/2019 2:20 PM CST Images from the original note were not included. Patient Instructions by Patience Toussaint NP at 07/30/2019 2:20 PM Author: Patience Toussaint NP Service: -- Author Type: Nurse Practitioner Filed: 07/30/2019 2:15 PM Encounter Date: 07/30/2019 Status: Addendum Outbound Sales Executive: Patience Toussaint NP (Nurse Practitioner) Related Notes: Original Note by Patience Toussaint NP (Nurse Practitioner) filed at 07/30/2019 2:12 PM Continue home care We will have you see Dr. Steward at your next visit to discuss flap closure of the wound Today we ordered supplies for you from [employer]. To reorder supplies or if you have any questions aboutyour order please call [employer] Customer Service at Wound Care Instructions Every 1-2 days home care will Irrigate your left ischial tuberosity wound(s) with dilute hibiclens (30cc in 500cc NS) Pat Dry Ok to use nystatin powder as needed to surrounding rash Apply skin prep to skin surrounding the wound Apply aquacel ag rope into/onto the wounds Cover with Tegaderm foam It is ok to get your [...] than this please contact our office at [phone]. Patience Toussaint DNP, RN, HANDYMAN, [facility] [phone] You will need to reposition frequently; keep direct pressure off of the wound or reddened area Reposition Every 1-2 hours while in bed; left, right; supine; repeat Reposition Every 15 minutes while up in a chair; chair push ups Stand every 30 minutes while in a chair if able Obtain a seat cushion; can get a 4 high density foam at [facility] [facility]; or GeoMat or J-cushion from [employer]; or we can order a ROHO cushion if you qualify for this type of cushion 4 high density foam cushion GeoMat Cushion Nacho Cushion Roho Cushion [facility] [address] [place] [address] [place] [address] [place] [address] www.Medichanical EngineeringertyMichelson Diagnostics.R&R Sy-Tec [facility] [address] [place] [address] [phone] www.Double FusioncalChelaile.R&R Sy-Tec Yg Delacruz Www.[email or web address].R&R Sy-Tec [employer] [phone] [facility] [address] [place] [address] Chair Pushups Bed Positioning CIATE PROFESSOR OF LIBRARY MEDIA documented in this encounter Plan of Treatment Upcoming Encounters Date Type Specialty Care Team Description 11/15/2022 Virtual Visit Pharm D Haylie Cheung, [facility] [address] [facility] [place] [id number] (Wo rk) 11/15/2022 Virtual Visit IM/Peds Yane Barraza MD [address] [place] [address] [place] [phone] (Wo rk) 03/03/2023 Virtual Visit Neurology Erlinda Barber MD [address] [facility] 295 [place] [address] (Wo rk) documented [...] documented as of this encounter Care Teams Cuff Cutter Relationship Specialty Start Date End Date Galdino Valdez MD PCP - General Family Practice 11/29/19 02/12/20 [address] [place], [place] [phone] Jaiden Holcomb PCP - General Internal Medicine 02/13/2010/03 MD Jayesh [address] [place] [address] [place] [phone] Doris Lai MD PCP - General 05/24/19 11/28/[address] [place] [address] [place] [id number] Chastity Montero MD Dermatology 09/23/14 420 [facility] 98 [place], [place] [address] Johnnie Alcocer MD Surgeon General Surgery 03/23/[address] [place], [place] [address] Lucero Stevenson, Assigned PCP 06/17/18 MD TOÑO LOPEZ [address] [place], [place] [phone] Danni Marcus, CHANDLER Personal Advocate & 01/09/1901/17 Liaison (PAL) Mtkinsey, Ea Complex 04/23/19 Svetlana Osman, Pharmacist Pharmacotherapy 04/23/19 [facility] [address] [facility] [address] [place], [place] [phone] Haylie Cheung, Pharmacist Pharmacist 09/11/19 [facility] [address] [facility] [address] [place], [place] [phone] Galdino Valdez MD Assigned PCP 11/10/19 05/23/20 [address] [place], [place] [phone] Opal, Assigned Sleep 05/08/20 03/27/21 Kendall Meehan MD Provider [address] [place], [place] [address] Erlinda Barber MD Assigned Neuroscience 05/08/20 01/26/21 [address] [facility] 295 [place] [address] Jaiden Holcomb Assigned PCP 05/24/20 MD Jayesh 909 [place] [address] documented as of this encounter
--- OUTSIDE RECORDS SUMMARY | 2022-06-15 12:59 | XMS_ITS | Encounter Summary ---
:1945 Author Organization [place] Address [address] [facility] [place] [address] Care Team Providers Name Role Phone Chastity Montero MD Unavailable [phone] Johnnie Alcocer MD Unavailable Lucero Stevenson MD Unavailable [phone] Danni Marcus RN Unavailable Unavailable Mtm, Ea Complex Unavailable Unavailable Svetlana Osman [facility] Unavailable [phone] Doris Lai MD Primary Care Provider Encounter Details Date Type Department Care Team Description 08/07/2019 Telephone [facility] Wound Abigail Mccall, [facility] [place] [address] [facility] [address] [place] [address] [place] [address] [phone] (Wo rk) Social History Tobacco Use Types [...] encounter Miscellaneous Notes Telephone Encounter - Yanet Mosqueda RN - 08/07/2019 4:01 PM COMBATANT DIVER OFFICER Returned call letting her know that we haven't seen patient since 10-08-18. ATANT DIVER OFFICER Telephone Encounter - Kana Garcia - 08/07/2019 3:55 PM CST [facility] Wound Who is the name of the provider?: [place] What is the location you see this provider at?: [place] Reason for call: Please fax notes from 07/20/19 wound care visit to: [phone], alt fax (in case ofproblem): [phone]. Send to: Attn Nursing Can we leave a detailed message on this number? YES ATANT DIVER OFFICER documented in this encounter Plan of Treatment Upcoming Encounters Date Type Specialty Care Team Description 11/15/2022 Virtual Visit Pharm Haylie Gonzalez, [facility] [address] [facility] [place] [address] (Lena max) 11/15/2022 Virtual Visit IM/Yane Mathias MD [address] [facility] [place] [address] (Lena max) 03/03/2023 Virtual Visit Neurology Erlinda Barber MD [address] [place] [address] [facility] 295 [place] [address] (Wo rk) documented as of this encounter Visit Diagnoses Not on filedocumented in this encounter Additional Health Concerns Assessment Noted Time PHQ-9 Depression Total Score: 4 04/12/2019 7:03 AM CDT documented as of this encounter Care Teams Data Compiler Relationship Specialty Start Date End Date Doris Lai MD PCP - General 05/24/19 11/28/19 [address] [facility] [place] [phone] Chastity Montero MD Dermatology 09/23/14 420 [facility] 98 [place], [place] [address] Johnnie Alcocer MD Surgeon General Surgery 03/23/[address] [place], [place] [address] Lucero Stevenson Assigned PCP 06/17/18 11/09/[address] MD Annetta [address] [phone] Danni Marcus, CHANDLER Personal Advocate & 01/09/1901/17 Liaison (PAL) Kyle King Complex 04/23/19 Svetlana Omsan, Pharmacist Pharmacotherapy 04/23/19 [facility] [address] [place] [address] [place] [phone] documented as of this encounter
--- OUTSIDE RECORDS SUMMARY | 2022-06-15 12:59 | XMS_ITS | Encounter Summary ---
:1945 Author Organization [place] Address [address] [place] [address] Care Team Providers Name Role Phone Chastity Montero MD Unavailable [phone] Johnnie Alcocer MD Unavailable Lucero Stevenson MD Unavailable [phone] Danni Marcus RN Unavailable Unavailable Mtkinsey, Kyle Complex Unavailable Unavailable Svetlana Osman [place] [facility] Unavailable [phone] Doris Lai MD Primary Care Provider Reason for Visit Reason Comments Follow Up 3 month Encounter Details Date Type Department Care Team Description 07/22/2019 Office [place] [facility] Erlinda Barber MD Recurrent seizures [address] (H) [place], [address] [place] [address] [phone] (Wo rk) Social History Tobacco Use Types Packs/Day Years Used Date Smoking Tobacco: Never Smokeless Tobacco: Never Tobacco Cessation: Counseling Given: No Alcohol Use Standard Drinks/Week Comments No 0 [...] Sign Reading Time Taken Comments Blood Pressure 170/107 07/22/2019 11:20 AM STONE CIRCULAR SAWYER Pulse - - Temperature - - Respiratory Rate - - Oxygen Saturation - - Inhaled Oxygen Concentration - - Weight 160.8 kg (354 lb 6.4 07/22/2019 11:20 AM with sh oe on oz) STONE CIRCULAR SAWYER Height - - Body Mass Index 55.51 05/15/2019 10:08 AM CDT documented in this encounter Patient Instructions Patient InstructionsErlinda Barber MD - 07/22/2019 11:30 AM CST Times of Days am pm Medication Tablet Size Number of Tablets/Capsules Total Daily Dosage Keppra 500 1 1 1000 mg Carry this with you at all times. CONTINUE TAKING YOUR OTHER MEDICATIONS PREVIOUSLY DIRECTED. * * *Do not store medications in the bathroom. Keep medications away from children!* * * E CIRCULAR SAWYER documented in this encounter Progress Notes Erlinda Barber MD - 07/22/2019 11:30 AM CST CHIEF COMPLAINT: New onset seizure. HISTORY OF PRESENT ILLNESS: Patient returned for follow up. She is a 74-year-old right-handed femalepresented for new onset seizure. She was recently discharged from the hospital in 2018 after a suspected seizure spell. The patient is accompanied by her sister in the clinic today. Since the lastvisit, she had no seizures. She is currently taking Keppra 500 mg bid. Her keppra dose was changed from 1000 mg every day to 500 mg bid. She is compliant with [...] with loss of consciousness. No history of SILK FINISHER infection. No history of febrile convulsions. No history of brain tumor, no history of stroke. She had normal and development. CURRENT AEDs: 1. Keppra 1000 mg daily. Current Outpatient Medications Medication Sig Dispense Refill ??? acetaminophen (TYLENOL) 325 MG tablet Take 2 tablets (650 mg) by mouth every 4 hours as needed for mild pain ??? ascorbic acid (VITAMIN C) 500 MG tablet Take 500 mg by mouth daily ??? atenolol (TENORMIN) 25 MG tablet Take 1 tablet (25 mg) by mouth 2 times daily 180 tablet 1 ??? Calcium Carb-Cholecalciferol (CALCIUM + D3) 600-200 MG-UNIT TABS Take 1 tablet by mouth daily ??? cetirizine (ZYRTEC) 10 MG tablet Take 10 mg by mouth 2 times daily ??? Cholecalciferol (VITAMIN D PO) Take 2,000 Units by mouth daily ??? desoximetasone (TOPICORT) 0.05 % GEL Apply twice daily as needed to arms and legs 180 g 3 ??? FEROSUL 325 (65 Fe) MG tablet TAKE 1 TABLET(325 MG) BY MOUTH DAILY WITH BREAKFAST 100 tablet 3 ??? [...] tablet by mouth daily ??? nystatin (MYCOSTATIN) 969623 UNIT/GM external cream Apply topically daily as needed 0 ??? nystatin (NYSTOP) 661722 UNIT/GM external powder APPLY TOPICALLY TO THE AFFECTED AREA BENEATH BILATERAL BREAST/GROIN FOLDS TWICE DAILY UNTIL RESOLVED. 60 g 0 ??? order for DME Equipment being ordered: Bariatric 4-wheeled walker Seat width needs to be 20 inches or greater Handlebar width needs to be 22 inches or greater 1 each 0 ??? warfarin ANTICOAGULANT (COUMADIN) 10 MG tablet Take 1 tablet (10 mg) by mouth daily 10 mg (1 pill) daily PAST ANTISEIZURE MEDICATIONS: None. ALLERGIES: Cephalexin, lanolin, [...] tonic-clonic seizures. SOCIAL HISTORY: She lives in [place]. She had regular classes in the past. She had bachelor's degree in economics, history and library science. 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 She is . She has 1 adult child. No smoking, no alcohol, no drug abuse. PHYSICAL EXAMS: Blood pressure (!) 170/107, weight (!) 160.8 kg (354 lb 6.4 oz), not currently . General exam: General Appearance: Obese, No acute distress. HEENT: Normocephalic, atraumatic. Neck: Supple. Extremities: Bilateral lower extremity lymphedema General exam: General Appearance: No acute distress. HEENT: Normocephalic, atraumatic. Neck: Supple.Extremities: No edema, no clubbing, no cyanosis. Neurologic Exam: Alert and oriented x3. Speech fluent, appropriate. Normal attention. Cranial Nerves: Pupils are equal, round, reactive to light and accomodation. Extraocular movement intact. No facialweakness or asymmetry. Hearing normal. Motor Exam: Normal. Coordination:no ataxia. Gait and Station: normal casual gait. Not able to do tendem gait, tip-toe or heel walking. REVIEW OF SYSTEMS: Positive for tingling sensation, loss of sensation in the left foot, lymphedema bilaterally. The rest of the 12-point review of systems is negative. PREVIOUS DIAGNOSTIC [...] slowing and the left temporal epileptiform activities. She is a 74-year-old right-handed female presented for new onset seizure. She was recently discharged from the hospital in 2018 after a suspected seizure spell. The patient is accompanied by her sister in the clinic today. Since the last visit, she had no seizures. She is currently taking Keppra 500 mg bid. Her keppra dose was changed from 1000 mg every day to 500 mg bid. She is compliant with her medications. No side effects were reported. She is happy with the results. 2. Lymphedema. 3. Hypertension. 4. Obstructive sleep apnea. 5. Pressure ulcer of the left buttock. PLAN: 1. Continue Keppra 500 mg twice daily. 2. Return to clinic in 6 months. 25 min was spent on the visit. Over 50% of the time was spent on education, counseling about optimalseizure control and coordination of care. E CIRCULAR SAWYER documented in this encounter Plan of Treatment Upcoming Encounters Date Type Specialty Care Team Description 11/15/2022 Virtual Visit Pharm D Haylie Cheung, [place] [facility] [address] [facility] [place] [phone] (Lena max) 11/15/2022 Virtual Visit IM/Yane Mathias MD [address] [facility] [place] [phone] (Lena max) 03/03/2023 Virtual Visit Neurology Erlinda Barber MD 420 [facility] 295 [place], [place] [address] (Lena max) documented as of this encounter Visit Diagnoses Diagnosis Recurrent seizures (H) 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 documented in this encounter Additional Health Concerns Assessment Noted Time PHQ-9 Depression Total Score: 4 04/12/2019 7:03 AM CDT documented as of this encounter Care Teams Loom Changer Relationship Specialty Start Date End Date Doris Lai MD PCP - General 05/24/19 11/28/[address] [facility] [address] [place], [place] [phone] Chastity Montero MD Dermatology 09/23/14 [address] [facility] 98 [place], [place] [address] Johnnie Alcocer MD Surgeon General Surgery 03/23/17 [address] [facility] 300 [place], [place] [phone] Lucero Stevenson Assigned PCP 06/17/18 11/09/19 MD Annetta [facility] [address] [place] [address] Danni Marcus, CHANDLER Personal Advocate & 01/09/1901/17 Liaison (PAL) Fernando, Ea Complex 04/23/19 Svetlana Osman, Pharmacist Pharmacotherapy 04/23/19 [place] [facility] [address] [place] [address] documented as of this encounter
--- OUTSIDE RECORDS SUMMARY | 2022-06-15 12:59 | XMS_ITS | Encounter Summary ---
:1945 Author Organization [place] Address [facility] [place] [address] Care Team Providers Name Role Phone Chastity Montero MD Unavailable [phone] Johnnie Alcocer MD Unavailable Lucero Stevenson MD Unavailable [phone] Danni Marcus RN Unavailable Unavailable Mtm, Ea Complex Unavailable Unavailable Svetlana Osman [facility] Unavailable [phone] Doris Lai MD Primary Care Provider Encounter Details Date Type Department Care Team Description 07/19/2019 Hospital Encounter [facility] Maribell John, [facility] [address] [facility] INF[facility] [place], [place] [facility] [address] [place] [address] [place], [place] [address] (Wo rk) Social History [...] PM CDT documented as of this encounter Medications at Time of Discharge Medication Sig Dispensed Refills Start Date End Date cetirizine (ZYRTEC) 10 MG Take 10 mg by mouth 0 tablet 2 times daily hydrocortisone 2.5 % Daily as needed to 180 g 3 019 ointmentIndications: rash on arms and Dermatitis legs Multiple Take 1 tablet by 0 Vitamins-Minerals mouth 2 times daily (PRESERVISION/LUTEIN) CAPS acetaminophen (TYLENOL) Take 2 tablets (650 0 07/201805/04/2021 325 MG tabletIndications: mg) by mouth every Pain 4 hours as needed for mild pain ascorbic acid (VITAMIN C) Take 500 mg by 0 04/30/2020 500 MG tablet mouth daily atenolol (TENORMIN) 25 MG Take 1 tablet (25 180 tablet 1 02/201909/11/2019 tabletIndications: mg) by mouth 2 Essential hypertension, times daily benign Calcium Take 1 tablet by 0 09/11/19 20 Carb-Cholecalciferol mouth daily (CALCIUM + D3) 600-200 MG-UNIT TABS Cholecalciferol (VITAMIN Take 5,000 Units by 0 10/04/2021 D PO) mouth daily ciprofloxacin (CIPRO) 500 Take 1 tablet (500 20 tablet 0 09/11/2019 MG tabletIndications: mg) by mouth 2 Pressure injury of left times daily for 10 buttock, stage 4 (H) days clindamycin (CLEOCIN) 300 Take 1 capsule (300 30 capsule 0 1 09/11/2019 MG capsuleIndications: mg) by mouth 3 Pressure injury of left times daily for 10 buttock, stage 4 (H) days desoximetasone (TOPICORT) Apply twice daily 180 g 3 07/201809/11/2019 0.05 % GELIndications: as needed to arms Dermatitis and legs FEROSUL 325 (65 Fe) MG TAKE 1 TABLET(325 100 tablet 3 201809/11/2019 tabletIndications: Iron MG) BY MOUTH DAILY deficiency anemia, WITH BREAKFAST unspecified iron deficiency anemia type furosemide (LASIX) 40 MG Take 0.5-1 tablets 90 tablet 0 02/201902/14/2020 tabletIndications: (20-40 mg) by mouth Essential hypertension, daily as needed benign (for leg swelling) levETIRAcetam (KEPPRA) Take 1 tablet (500 180 tablet 3 04/2401/24/2020 500 MG tabletIndications: mg) by mouth 2 Recurrent seizures (H) times daily losartan (COZAAR) 50 MG Take 1 tablet (50 90 tablet 1 04/2309/11/2019 tabletIndications: mg) by mouth daily Essential hypertension, benign multivitamin w/minerals Take 1 tablet by 0 05/04/2021 (THERA-VIT-M) tablet mouth daily nystatin (MYCOSTATIN) Apply topically 0 8 09/11/2019 218760 UNIT/GM external daily as needed cream nystatin (NYSTOP) 020455 APPLY TOPICALLY TO 60 g 0 02/201909/11/2019 UNIT/GM external THE AFFECTED AREA powderIndications: BENEATH BILATERAL Pressure ulcer of BREAST/GROIN FOLDS ischium, left, stage IV TWICE DAILY UNTIL (H) RESOLVED. order for DMEIndications: Equipment being ordered: Bariatric 4-wheeled walker 1 each 0 03/08/2019 12/17/2021 Lymphedema of both lower Seat width needs to be 20 inches or greater extremities, Morbid Handlebar width needs to be 22 inches or greater obesity (H), Left foot drop warfarin ANTICOAGULANT Take 1 tablet (10 0 201808/20/2019 (COUMADIN) 10 MG mg) by mouth daily tabletIndications: Long 10 mg (1 pill) term current use of daily 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 documented as of this encounter Plan of Treatment Upcoming Encounters Date Type Specialty Care Team Description 11/15/2022 Virtual Visit Haylie Wakefield, [facility] [address] [place], [place] [phone] (Wo rk) 11/15/2022 Virtual Visit IM/Peds Yane Barraza MD [address] [facility] [place] [id number] (Wo rk) 03/03/2023 Virtual Visit Neurology Erlinda Barber MD [address] [facility] [address] [place], [place] [address] (Wo rk) documented as of this encounter Visit Diagnoses Not on filedocumented in this encounter Additional Health Concerns Assessment Noted Time PHQ-9 Depression Total Score: 4 04/12/2019 7:03 AM CDT documented as of this encounter Care Teams Machine Repairman Relationship Specialty Start Date End Date Doris Lai MD PCP - General 05/24/19 11/28/19 [address] [facility] [place] [phone] Chastity Montero MD Dermatology 09/23/14 [address] [facility] [address] [place], [place] [address] Johnnie Alcocer MD Surgeon General Surgery 03/23/17 [address] [facility] [address] [place], [place] [address] Lucero Stevenson Assigned PCP 06/17/18 11/09/19 MD Annetta [facility] [address] [place], [place] [phone] Danni Marcus, CHANDLER Personal Advocate & 01/09/1901/17 Liaison (PAL) Fernando, Kyle Complex 04/23/19 Svetlana Osman, Pharmacist Pharmacotherapy 04/23/19 [facility] [address] [facility] [place] [id number] documented as of this encounter
--- OUTSIDE RECORDS SUMMARY | 2022-06-15 12:59 | XMS_ITS | Encounter Summary ---
:1945 Author Organization [place] Address [address] [place] [address] Care Team Providers Name Role Phone Chastity Montero MD Unavailable [phone] Johnnie Alcocer MD Unavailable Lucero Stevenson MD Unavailable [phone] Danni Marcus RN Unavailable Unavailable MtKyle euceda Complex Unavailable Unavailable Svetlana Osman [facility] Unavailable [phone] Doris Lai MD Primary Care Provider Reason for Visit Reason Onset Date Comments INR RESULTS 07/16/2019 Encounter Details Date Type Department Care Team Description 07/16/2019 [facility] Doris Agarwal MD INR RESULTS Yarelis [address] [facility] [address] [facility] [place] [address] [address] [place] [address] [phone] Social History Tobacco Use Types Packs/Day Years [...] Telephone Encounter - Sasha Rueda RN - 07/16/2019 10:30 AM CST ANTICOAGULATION MANAGEMENT Patient Name: Charlette Brush Date: 07/16/2019 ASSESSMENT /SUBJECTIVE: Today's INR result of 2.9 [...] ??? Additional findings: None PLAN: Spoke with Kana/Home Care Nurse regarding INR result and instructed: Warfarin Dosing Instructions: Continue your current warfarin dose Instructed patient to follow up no later than: 2 weeks Education provided: Yes: Watch for increased signs of bruising or bleeding and if noted to be seen right away Kana/Nurse verbalizes understanding and agrees to warfarin dosing plan. Instructed to call the Anticoagulation Clinic for any changes, questions or concerns. 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] terminal carman current use of 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 [Z79.01] Anticoagulation Episode Summary INR check location: Preferred lab: EXTERNAL LAB Send INR reminders to: [facility] Comments: 3mg & 10mg tabs - devaughn dose / Interim Home Care qod - Kana [phone] / APPT CARD ONLY Anticoagulation Care Providers Provider Role Specialty Phone number Lucero Stevenson MD Internal Medicine [phone] NISTRATIVE ASSISTANT COORDINATOR documented in this encounter Plan of Treatment Upcoming Encounters Date Type Specialty Care Team Description 11/15/2022 Virtual Visit Pharm Haylie Gonzalez, [facility] [address] [place] [address] (Wo rk) 11/15/2022 Virtual Visit [place] [address] [place] [address] [place] [address] (Wo rk) 03/03/2023 Virtual Visit Neurology Erlinda Barber MD [address] [facility] 295 [place] [address] (Wo rk) documented as of this encounter Procedures Procedure Name Priority Date/Time Associated Diagnosis Comme nts INR Routine 07/16/2019 Results for thi s procedure are in the resu lts section. documented in this encounter Results (ABNORMAL) INR (07/16/2019) P athologist Signature INR 2.9 (A) 0.90 - 1.10 EXTERNAL LAB Specimen (Source) Anatomical Location Collection Method / Collectio n Time Received Time / Laterality Volume Blood specimen 07/16/2019 (specimen) Resulting Agency Comment Home Care Patient Reported LAB - BLOOD ORDERABLES Performing Organization Address City/State/ZIP Code Phon e Number EXTERNAL LAB EXTERNAL LAB External Lab documented in this encounter Visit Diagnoses Diagnosis 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 embolism long-term current use of anticoagulant t herapy documented in this encounter Additional Health Concerns Assessment Noted Time PHQ-9 Depression Total Score: 4 04/12/2019 7:03 AM CDT documented as of this encounter Care Teams Plant Chief Relationship Specialty Start Date End Date Doris Lai MD PCP - General 05/24/19 11/28/[address] [facility] [address] [place] [phone] Chastity Montero MD Dermatology 09/23/14 420 [facility] 98 [place], [place] [address] Johnnie Alcocer MD Surgeon General Surgery 03/23/[address] [place], [place] [address] Lucero Stevenson Assigned PCP 06/17/18 11/09/19 MD Annetta [facility] [address] [place] [phone] Danni Marcus, CHANDLER Personal Advocate & 01/09/1901/17 Liaison (PAL) Kyle King Complex 04/23/19 Svetlana Osman, Pharmacist Pharmacotherapy 04/23/19 [facility] [address] [place] [address] [address] [place] [phone] documented as of this encounter
--- OUTSIDE RECORDS SUMMARY | 2022-06-15 12:59 | XMS_ITS | Encounter Summary ---
:1945 Author Organization [place] Address [address] [place] [address] Care Team Providers Name Role Phone Chastity Montero MD Unavailable [phone] Johnnie Alcocer MD Unavailable Lucero Stevenson MD Unavailable [phone] Danni Marcus RN Unavailable Unavailable Mtm, Ea Complex Unavailable Unavailable Svetlana Osman [facility] Unavailable [phone] Doris Lai MD Primary Care Provider Encounter Details Date Type Department Care Team Description 08/26/2019 Orders Only [facility] Doris Lai, DIAGNO SIS NOT YET Clinic Yarelis PATEL DEFINED (Primary Dx) [address] [facility] [address] [facility] [address] [place] [address] [place] [address] Social History Tobacco Use [...] Pharm D Haylie Cheung, [facility] [address] [place] [address] [place] [address] (Wo rk) 11/15/2022 Virtual Visit [place] [address] [place] [address] [place] [address] (Wo rk) 03/03/2023 Virtual Visit Neurology Erlinda Barber MD [address] [facility] [address] [place], [place] [phone] (Wo rk) documented as of this encounter Procedures Procedure Name Priority Date/Time Associated Diagnosis Comme [facility] RECERTIFICATION PROGRAMMING INSTRUCTOR PT Routine 08/26/2019 DIAGNOSIS N OT YET DEFINED documented in this encounter Results RECERTIFICATION PROGRAMMING INSTRUCTOR PT (08/26/2019) Narrative This result has an attachment that is no t available. Doris Lai MD [employer] documented in this encounter Visit Diagnoses Diagnosis DIAGNOSIS NOT YET DEFINED - Primary documented in this encounter Additional Health Concerns Assessment Noted Time PHQ-9 Depression Total Score: 4 04/12/2019 7:03 AM CDT documented as of this encounter Care Teams Rec Therapist Relationship Specialty Start Date End Date Doris Lai MD PCP - General 05/24/19 11/28/19 [address] [facility] [place] [address] Chastity Montero MD Dermatology 09/23/14 [address] [facility] [address] [facility] [address] [place], [place] [address] Johnnie Alcocer MD Surgeon General Surgery 03/23/[address] [place], [place] [address] Lucero Stevenson Assigned PCP 06/17/18 11/09/19 MD Annetta [facility] [address] [place], [place] [phone] Danni Marcus, CHANDLER Personal Advocate & 01/09/1901/17 Liaison (PAL) Fernando, Ea Complex 04/23/19 Svetlana Osman, Pharmacist Pharmacotherapy 04/23/19 [facility] [address] [facility] [address] [place] [phone] documented as of this encounter
--- OUTSIDE RECORDS SUMMARY | 2022-06-15 12:59 | XMS_ITS | Encounter Summary ---
:1945 Author Organization [place] Address [address] [place] [address] Care Team Providers Name Role Phone Chastity Montero MD Unavailable [phone] Johnnie Alcocer MD Unavailable Lucero Stevenson MD Unavailable [phone] Danni Marcus RN Unavailable Unavailable Mtkinsey, Kyle Complex Unavailable Unavailable Svetlana Osman [facility] Unavailable [phone] Doris Lai MD Primary Care Provider Encounter Details Date Type Department Care Team Description 07/22/2019 Travel Social History Tobacco Use Types Packs/Day [...] Gonzalez, [facility] [address] [place] [phone] (Wo rk) 11/15/2022 Virtual Visit IM[place] [address] [place] [address] [place] [address] (Wo rk) 03/03/2023 Virtual Visit Neurology Erlinda Barber MD [address] [place] [address] 295 [place], [place] [address] (Wo rk) documented as of this encounter Visit Diagnoses Not on filedocumented in this encounter Additional Health Concerns Assessment Noted Time PHQ-9 Depression Total Score: 4 04/12/2019 7:03 AM CDT documented as of this encounter Care Teams Brush Finisher Relationship Specialty Start Date End Date Doris Lai MD PCP - General 05/24/19 11/28/19 [address] [facility] [address] [place] [phone] Chastity Montero MD Dermatology 09/23/[address] [place] [address] 98 [place], [place] [address] Johnnie Alcocer MD Surgeon General Surgery 03/23/[address] [place] [address] Lucero Stevenson Assigned PCP 06/17/18 11/09/19 MD TOÑO [facility] [place] [address] [place] [address] Danni Marcus, RN Personal Advocate & 01/09/1901/17 Liaison (PAL) Fernando, Ea Complex 04/23/19 Svetlana Osman, Pharmacist Pharmacotherapy 04/23/19 [facility] [address] [place] [address] documented as of this encounter
--- OUTSIDE RECORDS SUMMARY | 2022-06-15 12:59 | XMS_ITS | Encounter Summary ---
:1945 Author Organization [place] Address [facility]0 [place] [address] Care Team Providers Name Role Phone Chastity Montero MD Unavailable [phone] Johnnie Alcocer MD Unavailable Lucero Stevenson MD Unavailable [phone] Danni Marcus RN Unavailable Unavailable Mtm, Ea Complex Unavailable Unavailable Svetlana Osman [facility] Unavailable [phone] Haylie Cheung [facility] Unavailable [phone] Galdino Valdez MD Unavailable Galdino Valdez MD Primary Care Provider Jaiden Holcomb MD Primary Care Provider [phone] Kendall Joseph MD Unavailable Erlinda Barber MD Unavailable Jaiden Holcomb MD Unavailable [phone] Doris Lai MD Primary Care Provider Reason for Visit Reason Comments Wound Check Encounter Details Date Type Department Care Team Description 08/13/2019 [facility] Vascular [place] MD Manny left ischium, stage Mahamed STEWARD 4 (H) [address] [facility] [address] [facility] [phone] [place], [place] [phone] [address] Social History Tobacco Use Types Packs/Day Years [...] Sign Reading Time Taken Comments Blood Pressure 122/86 08/13/2019 2:37 PM SUBSTATION SUPERVISOR Pulse 76 08/13/2019 2:37 PM SUBSTATION SUPERVISOR Temperature 36.6 ??C (97.9 ??F) 08/13/2019 2:37 PM SUBSTATION SUPERVISOR Respiratory Rate - - Oxygen Saturation - - Inhaled Oxygen Concentration - - Weight - - Height - - Body Mass Index - - documented in this encounter Progress Notes Ashu Steward MD - 08/13/2019 2:40 PM CST Images from the original note were not included. Progress Notes by Ashu Steward MD at 08/13/2019 2:40 PM Author: Ashu Steward MD Service: -- Author Type: Physician Filed: 08/13/2019 3:06 PM Encounter Date: 08/13/2019 Status: Signed Activity Therapy Teacher: Ashu Steward MD (Physician) Plastic Surgery Consultation Problem: Active Problems: * No active hospital problems. * History of Present Illness: Pt is a 74 yo female with a history of 20 months of left IT pressure ulcer. Past Medical History: Diagnosis Date ? Acute [...] Patient has appointment with [facility] Specialist at [facility] on 01[facility]11. 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 ? Morbid obesity (H) ? [...] [facility] at [facility] in [place] per patient request. She has contact i [...] ? wound irrigation and debridement left buttocks Family History Problem Relation Age of Onset ? Hypertension Mother ? Transient ischemic attack Mother ? Thyroid disease Mother Social History Socioeconomic History ? Marital status: Single Spouse name: Not on file ? Number of children: Not on file ? Years of education: Not on file ? Highest education level: Not on file Occupational History ? Not on file Social Needs ? Financial resource strain: Not on file ? Food insecurity: Worry: Not on file Inability: Not on file ? Transportation needs: Medical: Not on file Non-medical: Not on file Tobacco Use ? Smoking status: Never Smoker ? Smokeless tobacco: Never Used Substance and Sexual Activity ? Alcohol use: Not Currently Frequency: Never ? Drug use: Not on file ? Sexual activity: Not on file Lifestyle ? Physical activity: Days per week: Not on file Minutes per session: Not on file ? Stress: Not on file Relationships ? Social connections: Talks on phone: Not on file Gets together: Not on file Attends yazidi service: Not on file Active member of club or organization: Not on file Attends meetings of clubs or organizations: Not on file Relationship status: Not on file ? Intimate partner violence: Fear of current or ex partner: Not on file Emotionally abused: Not on file Physically abused: Not on file Forced sexual activity: Not on file Other Topics Concern ? Incontinent Not Asked ? Toileting independently Not Asked ? Cognitive impairment Not Asked ? Vision impairment Not Asked ? Hearing impairment Not Asked ? Dentures Not Asked Social History Narrative ? Not on file Medication List Accurate as of August 13, 2019 3:00 PM. If you have any questions, ask your nurse or doctor. CONTINUE taking these medications acetaminophen 325 MG tablet Commonly known as: TYLENOL ampicillin-sulbactam 3 gram Solr Commonly known as: UNASYN ascorbic acid (vitamin C) 500 MG tablet Commonly known as: VITAMIN C atenoloL 25 MG tablet Commonly known as: TENORMIN calcium polycarbophil 625 mg tablet Commonly known as: FIBERCON Cerovite Senior tablet Generic drug: wwtzxwlrfymc-luejospq-yebmqy cetirizine 10 MG tablet Commonly known as: ZyrTEC cholecalciferol (vitamin D3) 500 unit desoximetasone 0.05 % Gel Commonly known as: TOPICORT ferrous sulfate 325 (65 FE) MG tablet furosemide 40 MG tablet Commonly known as: LASIX hydrocortisone 2.5 % ointment levETIRAcetam 500 MG tablet Commonly known as: KEPPRA losartan 50 MG tablet Commonly known as: COZAAR nystatin cream Commonly known as: MYCOSTATIN sodium hypochlorite external solution Commonly known as: DAKIN'S (HALF-STRENGTH) warfarin ANTICOAGULANT 10 MG tablet Commonly known as: COUMADIN/JANTOVEN Allergies Allergies Allergen Reactions ? Cephalexin ? Ciprofloxacin Developed rash while on Cipro and Clindamycin ? Clindamycin Developed rash while taking Clindamycin and Cipro ? Lanolin ? Lisinopril ? Mupirocin ? Neomycin ? Penicillins Review of Systems: Constitutional: negative for chills, fatigue, fevers and night sweats Eyes: negative Ears, nose, mouth, throat, and face: negative for hearing loss, hoarseness, snoring, sore throat andtinnitus Respiratory: negative for shortness of breath or cough Cardiovascular: negative for chest pain, chest pressure/discomfort, dyspnea, exertional chest pressure/discomfort, irregular heart beat and lower extremity edema Gastrointestinal: negative for abdominal pain, constipation, diarrhea, melena and vomiting Genitourinary:negative for dysuria and hematuria Integument/breast: negative for pruritus and rash Hematologic/lymphatic: negative for bleeding Musculoskeletal:negative for arthralgias, back pain, myalgias and neck pain Neurological: negative for dizziness, headaches, paresthesia, seizures and tremors Behavioral/Psych: negative for anxiety, depression and irritability Labs: No results for input(s): CRP, HGBA1C, LABPRE, ALBUMIN in the last 72 hours. Invalid input(s): CDIFF, HEM Vitals: The last obtained vitals are: Temp: 97.9 ??F (36.6 ??C) Heart Rate: 76 BP: 122/86 Randall: There is no height or weight on file to calculate BMI. Output: Physical Exam; General Appearance: Appears comfortable, Alert, cooperative, no distress, Wound Ostomy Continence Assessment/Plan: VASC Wound 05/15/19 Buttocks (Active) Pre Size Length 4.7 08/13/2019 2:00 PM Pre Size Width 5 08/13/2019 2:00 PM Pre Size Depth 3.4 08/13/2019 2:00 PM Pre Total Sq cm 22.5 07/30/2019 1:00 PM Pt has a stage 4 left IT pressure ulcer. There is necrotic sq at the base. There is no erythema or pus. The dressings were all removed. Using a currette, incisional debridement of the stage 4 left IT pressure ulcer was done. Debrided 4x4 cm of necrotic sq to healthy bleeding tissue. Devitalized and non-viable tissue were removed to improve granulation tissue formation, stimulate wound healing, decrease bacteria load, decrease wound edge senescence and disrupt biofilm formation. Patient tolerated procedure well. Wound appears basin cleaner/healther after debridement. Hemostasis was well obtained. She tolerated it well and no complications were noted. Dresssings were reapplied. I recommend silvercel packsand foam dressing changed daily. She is not a good surgical candidate as the ulcer is too large and not as healthy at this time. She is overweight and is at high risk for failure or dehiscence of the flap. Continue local care for now. Continue offload. Follow up in 1 month. Thank you No att. providers found for this consult, I will continue to follow. Ashu Steward MD TATION SUPERVISOR documented in this encounter Miscellaneous Notes Patient Instructions - Kenya Bravo RN - 08/13/2019 2:40 PM CST Continue home care Wound Care [...] than this please contact our office at [phone]. TATION SUPERVISOR documented in this encounter Plan of Treatment Upcoming Encounters Date Type Specialty Care Team Description 11/15/2022 Virtual Visit Pharm D Haylie Cheung, [facility] [address] [place] [address] [place] [address] (Wo rk) 11/15/2022 Virtual Visit IM/Peds Yane Barraza MD [address] [place] [address] [place] [id number] (Wo rk) 03/03/2023 Virtual Visit Neurology Erlinda Barber MD [address] [facility] [address] [place], [place] [address] (Wo rk) documented as of this encounter Visit Diagnoses Diagnosis Pressure injury of left ischium, stage 4 (H) documented in this encounter Additional Health Concerns Assessment Noted Time PHQ-9 Depression Total Score: 4 04/12/2019 7:03 AM CDT documented as of this encounter Care Teams Floor Layer Relationship Specialty Start Date End Date Galdino Valdez MD PCP - General Family Practice 11/29/19 02/12/20 [address] [place], [place] [phone] Jaiden Holcomb PCP - General Internal Medicine 02/13/2010/03 MD Jayesh [address] [place] [address] [place] [phone] Doris Lai MD PCP - General 05/24/19 11/28/[address] [place] [address] [place] [phone] Chastity Montero MD Dermatology 09/23/14 [address] [facility] [address] [place], [place] [address] Johnnie Alcocer MD Surgeon General Surgery 03/23/17 [address] [facility] [address] [place], [place] [address] Lucero Stevenson, Assigned PCP 06/17/18 MD TOÑO LOPEZ [address] [place], [place] [phone] Danni Marcus, CHANDLER Personal Advocate & 01/09/1901/17 Liaison (PAL) Fernando Ea Complex 04/23/19 Svetlana Osman, Pharmacist Pharmacotherapy 04/23/19 [facility] [address] [place] [address] [place] [address] Haylie Cheung, Pharmacist Pharmacist 09/11/[address] [place], [place] [phone] Galdino Valdez MD Assigned PCP 11/10/19 05/23/20 [address] [place], [place] [phone] Opal, Assigned Sleep 05/08/20 03/27/21 Kendall Meehan MD Provider [address] [place] [address] [place], [place] [phone] Erlinda Barber MD Assigned Neuroscience 05/08/20 01/26/21 [address] [facility] [address] [place] [address] Jaiden Holcomb Assigned PCP 05/24/20 MD Jayesh [address] [place], [place] [phone] documented as of this encounter
--- OUTSIDE RECORDS SUMMARY | 2022-06-15 13:00 | XMS_ITS | Encounter Summary ---
:1945 Author Organization [place] Address [address] [place] [address] Care Team Providers Name Role Phone Chastity Montero MD Unavailable [phone] Johnnie Alcocer MD Unavailable Lucero Stevenson MD Unavailable [phone] Danni Marcus RN Unavailable Unavailable Mtm, Ea Complex Unavailable Unavailable Svetlana Osman [facility] Unavailable [phone] Doris Lai MD Primary Care Provider Encounter Details Date Type Department Care Team Description 07/08/2019 Orders Only [facility] Doris Lai, DIAGNO SIS NOT YET Clinic Yarelis PATEL DEFINED (Primary Dx) [address] [place] [address] [facility] [address] [place] [address] [place] [phone] Social History Tobacco Use [...] D Haylie Cheung, [facility] [address] [place] [address] [place] [address] (Wo rk) 11/15/2022 Virtual Visit [place] [address] [place] [address] [place] [address] (Wo rk) 03/03/2023 Virtual Visit Neurology Erlinda Barber MD [address] [facility] [address] [place], [place] [phone] (Wo rk) documented as of this encounter Procedures Procedure Name Priority Date/Time Associated Diagnosis Comme [facility] RECERTIFICATION MARKING MACHINE TENDER PT Routine 07/08/2019 DIAGNOSIS N OT YET DEFINED documented in this encounter Results RECERTIFICATION MARKING MACHINE TENDER PT (07/08/2019) Narrative This result has an attachment that is no t available. Doris Lai MD SPECIAL REPORTS documented in this encounter Visit Diagnoses Diagnosis DIAGNOSIS NOT YET DEFINED - Primary documented in this encounter Additional Health Concerns Assessment Noted Time PHQ-9 Depression Total Score: 4 04/12/2019 7:03 AM CDT documented as of this encounter Care Teams Medical Equipment Sales Relationship Specialty Start Date End Date Doris Lai MD PCP - General 05/24/19 11/28/19 [address] [facility] [place] [address] Chastity Montero MD Dermatology 09/23/[address] [facility] [address] [place], [place] [address] Johnnie Alcocer MD Surgeon General Surgery 03/23/[address] [place], [place] [address] Lucero Stevenson Assigned PCP 06/17/18 11/09/19 MD Annetta [facility] [address] [place], [place] [phone] Danni Marcus, CHANDLER Personal Advocate & 01/09/1901/17 Liaison (PAL) Fernando, Ea Complex 04/23/19 Svetlana Osman, Pharmacist Pharmacotherapy 04/23/19 [facility] [address] [facility] [address] [place] [phone] documented as of this encounter
--- OUTSIDE RECORDS SUMMARY | 2022-06-15 13:00 | XMS_ITS | Encounter Summary ---
:1945 Author Organization [place] Address [facility] [place] [address] Care Team Providers Name Role Phone Chastity Montero MD Unavailable [phone] Johnnie Alcocer MD Unavailable Lucero Stevenson MD Unavailable [phone] Danni Marcus RN Unavailable Unavailable Mtm, Ea Complex Unavailable Unavailable Svetlana Osman [facility] Unavailable [phone] Doris Lai MD Primary Care Provider Reason for Visit Reason Comments Infusion PICC dressing change and lab s Encounter Details Date Type Department Care Team Description 07/12/2019 Infusion Therapy [facility] Long Term Visit Cancer Center MD Ruth (Primary Dx) [facility] INFECTIOUS [facility] [address] [facility] [address] [place] [address] [place] [phone] Social History Tobacco Use Types Packs/Day Years [...] More than 4 times per year 05/03/2021 buddhism services? Do you belong to any clubs or No 05/03/2021 organizations such as congregation groups, unions, [employer] or athletic groups, or school groups? [...] documented as of this encounter Progress Notes Caroline Bhatt, RN - 07/12/2019 9:30 AM CST Nursing Note: Charlette Brush presents today for PICC dressing change and labs. Patient seen by provider today: No Internet Sales Director present during visit today: Not Applicable. Note: N/A. Intravenous Access: Lab draw site left AC, Needle type butterfly, Gauge 23. Labs drawn without difficulty. Discharge Plan: Patient was sent to home. Caroline Bhatt RN, RN USION DIE COORDINATOR documented in this encounter Plan of Treatment Upcoming Encounters Date Type Specialty Care Team Description 11/15/2022 Virtual Visit Pharm D Haylie Cheung, [facility] [address] [place] [address] (Lena max) 11/15/2022 Virtual Visit [place] [address] [place] [address] [place] [address] (Lena max) 03/03/2023 Virtual Visit Neurology Erlinda Barber MD [address] [facility] 295 [place] [address] (Lena max) documented as of this encounter Procedures Procedure Name Priority Date/Time Associated Comments Diagnosis CBC WITH PLATELETS & Routine 07/12/2019 9:33 AM Health Care Ho me Results for this DIFFERENTIAL EXTRUSION DIE COORDINATOR procedure are i n the results section. CRP INFLAMMATION Routine 07/12/2019 9:33 AM Health Long Term R esults for this EXTRUSION DIE COORDINATOR procedure are i n the results section. BASIC METABOLIC PANEL Routine 07/12/2019 9:33 AM Health Care H ome Results for this EXTRUSION DIE COORDINATOR procedure are i n the results section. documented in this encounter Results CRP inflammation (07/12/2019 9:33 AM EXTRUSION DIE COORDINATOR) P athologist Signature CRP Inflammation 5.6 0.0 - 8.0 07/12/2019 [facility] mg/L 10:02 AM [facility] Specimen Anatomical Collection Method Collection Time Receive d Time (Source) Location / / Volume Laterality Blood specimen 07/12/2019 9:33 AM 019 9:41 (specimen) EXTRUSION DIE COORDINATOR AM EXTRUSION DIE COORDINATOR Ruth John MD LAB - BLOOD ORDERABLES Performing Organization Address City/State/ZIP Code Phon e Number M [facility] [address] [place] [address] [facility] [address] [place] [address], U [phone] (ABNORMAL) Basic metabolic panel (07/12/2019 9:33 AM EXTRUSION DIE COORDINATOR) Analysis Performed At Patho logist Time Signature Sodium 141 133 - 144 07/12/2019 [facility] mmol/L 9:57 AM [facility] Potassium 4.2 3.4 - 5.3 07/12/2019 [facility] mmol/L 9:57 AM [facility] Chloride 109 94 - 109 07/12/2019 [facility] mmol/L 9:57 AM [facility] Carbon Dioxide 28 20 - 32 07/12/2019 [facility] mmol/L 10:02 AM [facility] Anion Gap 4 3 - 14 07/12/2019 [facility] mmol/L 10:02 AM [facility] Glucose 85 70 - 99 07/12/2019 [facility] mg/dL 10:02 AM [facility] Urea Nitrogen 24 7 - 30 07/12/2019 [facility] mg/dL 10:02 AM [facility] Creatinine 0.50 (L) 0.52 - 07/12/2019 [facility] 1.04 mg/dL 10:02 AM [facility] GFR Estimate >90 >60 07/12/2019 [place] mL/min/{1. 10:02 AM [facility] 73_m2} HOSPITAL Comment: Non GFR Calc Starting 07/03/2018, serum creatinine ba sed estimated GFR (eGFR) will be calculated using the Chronic Kidney Dise [facility] Epidemiology Collaboration (CKD-EPI) equation. GFR Estimate If >90 >60 mL/min/{1.73_m2} 07/12/2019 10:02 AM [facility] Comment: GFR Calc Starting 07/03/2018, serum creatinine ba sed estimated GFR (eGFR) will be calculated using the Chronic Kidney Dise [facility] Epidemiology Collaboration (CKD-EPI) equation. Calcium 8.9 8.5 - 10.1 mg/dL 07/12/2019 10:02 AM [facility] Specimen Anatomical Collection Method Collection Time Receive d Time (Source) Location / / Volume Laterality Blood specimen 07/12/2019 9:33 AM 019 9:41 (specimen) EXTRUSION DIE COORDINATOR AM [facility] Ruth John MD LAB - BLOOD ORDERABLES Performing Organization Address City/State/ZIP Code Phon e Number M [address] [address] [facility] [address] [place], [place] [address], [facility] [phone] [address], [phone] [facility] CBC with platelets differential (07/12/2019 9:33 AM [facility]) [facility] Method Time Signature WBC 5.1 4.0 - 07/12/2019 [facility] 11.0 9:43 AM [facility] 10e9/L [facility] RBC Count 4.65 3.8 - 5.2 07/12/2019 [place] 10e12/L 9:43 AM [facility] Hemoglobin 14.2 11.7 - 07/12/2019 [place] 15.7 g/dL 9:43 AM [facility] Hematocrit 43.3 35.0 - 07/12/2019 [place] 47.0 % 9:43 AM [facility] MCV 93 78 - 100 07/12/2019 [facility] fl 9:43 AM [facility] MCH 30.5 26.5 - 07/12/2019 [facility] 33.0 pg 9:43 AM [facility] MCHC 32.8 31.5 - 07/12/2019 [facility] 36.5 g/dL 9:43 AM [facility] RDW 14.2 10.0 - 07/12/2019 [facility] 15.0 % 9:43 AM [facility] Platelet Count 222 150 - 450 07/12/2019 [facility] 10e9/L 9:43 AM [facility] Diff Method Automated 07/12/2019 [facility] Method 9:43 AM [facility] % Neutrophils 67.1 % 07/12/2019 [facility] 9:43 AM [facility] % Lymphocytes 17.4 % 07/12/2019 [facility] 9:43 AM [facility] % Monocytes 9.0 % 07/12/2019 [facility] 9:43 AM [facility] % Eosinophils 5.3 % 07/12/2019 [facility] 9:43 AM [facility] % Basophils 1.0 % 07/12/2019 [facility] 9:43 AM [facility] % Immature 0.2 % 07/12/2019 [facility] Granulocytes 9:43 AM [facility] Nucleated RBCs 0 0 /100 07/12/2019 [facility] 9:43 AM [facility] Absolute 3.4 1.6 - 8.3 07/12/2019 [facility] Neutrophil 10e9/L 9:43 AM [facility] Absolute 0.9 0.8 - 5.3 07/12/2019 [facility] Lymphocytes 10e9/L 9:43 AM [facility] Absolute 0.5 0.0 - 1.3 07/12/2019 [facility] Monocytes 10e9/L 9:43 AM [facility] Absolute 0.3 0.0 - 0.7 07/12/2019 [facility] Eosinophils 10e9/L 9:43 AM [facility] Absolute 0.1 0.0 - 0.2 07/12/2019 [facility] Basophils 10e9/L 9:43 AM [facility] Abs Immature 0.0 0 - 0.4 07/12/2019 [facility] Granulocytes 10e9/L 9:43 AM EXTRUSION DIE COORDINATOR [facility] Absolute 0.0 07/12/2019 [place] Nucleated RBC 9:43 AM EXTRUSION DIE COORDINATOR [facility] Specimen Anatomical Collection Method Collection Time Receive d Time (Source) Location / / Volume Laterality Blood specimen 07/12/2019 9:33 AM 019 9:41 (specimen) EXTRUSION DIE COORDINATOR AM EXTRUSION DIE COORDINATOR Ruth John MD LAB - BLOOD ORDERABLES Performing Organization Address City/State/ZIP Code Phon e Number M [facility] [address] [place], [place] [address] [facility] [address] [place], [place] [address] [phone] documented in this encounter Visit Diagnoses Diagnosis Health Long Term - Primary notesas part of the Health Long Term wor kflow to capture care coordination pl documented in this encounter Additional Health Concerns Assessment Noted Time PHQ-9 Depression Total Score: 4 04/12/2019 7:03 AM CDT documented as of this encounter Care Teams Veneer Sample Maker Relationship Specialty Start Date End Date Doris Lai MD PCP - General 05/24/19 11/28/19 [address] [facility] [address] [place] [phone] Chastity Montero MD Dermatology 09/23/[address] [place] [address] [address] [place], [place] [address] Johnnie Alcocer MD Surgeon General Surgery 03/23/17 [address] [facility] [address] [place], [place] [phone] Lucero Stevenson Assigned PCP 06/17/18 11/09/19 MD TOÑO Littlejohn [place] [address] [place], [place] [phone] Danni Marcus, CHANDLER Personal Advocate & 01/09/1901/17 Liaison (PAL) Fernando, Ea Complex 04/23/19 Svetlana Osman, Pharmacist Pharmacotherapy 04/23/19 [facility] [address] [facility] [place] [address] documented as of this encounter
--- OUTSIDE RECORDS SUMMARY | 2022-06-15 13:00 | XMS_ITS | Encounter Summary ---
:1945 Author Organization [place] Address [facility] [place] [address] Care Team Providers Name Role Phone Chastity Montero MD Unavailable [phone] Johnnie Alcocer MD Unavailable Lucero Stevenson MD Unavailable [phone] Danni Marcus RN Unavailable Unavailable Mtm, Ea Complex Unavailable Unavailable Svetlana Osman [facility] Unavailable [phone] Doris Lai MD Primary Care Provider Encounter Details Date Type Department Care Team Description 07/05/2019 Hospital Encounter [facility] Maribell John, [facility] [address] [facility] INFECTIOUS [place], [place] [facility] [address] [place] [address] [place], [place] [address] (Wo rk) Social History [...] nystatin (MYCOSTATIN) Apply topically 0 8 09/11/2019 532331 UNIT/GM external daily as needed cream nystatin (NYSTOP) 759091 APPLY TOPICALLY TO 60 g 0 02/201909/11/2019 [...] Virtual Visit Haylie Wakefield, [facility] [address] [place], [place] [id number] (Wo rk) 11/15/2022 Virtual Visit IM/Peds Yane Barraza MD [address] [facility] [place] [id number] (Wo rk) 03/03/2023 Virtual Visit Neurology Erlinda Barber MD [address] [facility] 295 [place], [place] [address] (Wo rk) documented as of this encounter Visit Diagnoses Not on filedocumented in this encounter Additional Health Concerns Assessment Noted Time PHQ-9 Depression Total Score: 4 04/12/2019 7:03 AM CDT documented as of this encounter Care Teams Pattern Puncher Relationship Specialty Start Date End Date Doris Lai MD PCP - General 05/24/19 11/28/19 [address] [facility] [place] [id number] Chastity Montero MD Dermatology 09/23/14 420 [facility] 98 [place], [place] [address] Johnnie Alcocer MD Surgeon General Surgery 03/23/17 [address] [facility] 300 [place], [place] [address] Lucero Stevenson Assigned PCP 06/17/18 11/09/19 MD Annetta [facility] 8675 [place], [place] [phone] Danni Marcus, CHANDLER Personal Advocate & 01/09/1901/17 Liaison (PAL) Fernando, Kyle Complex 04/23/19 Svetlana Osman, Pharmacist Pharmacotherapy 04/23/19 [facility] [address] [facility] [place] [id number] documented as of this encounter
--- OUTSIDE RECORDS SUMMARY | 2022-06-15 13:00 | XMS_ITS | Encounter Summary ---
:1945 Author Organization [place] Address [address] [place] [address] Care Team Providers Name Role Phone Chastity Montero MD Unavailable [phone] Johnnie Alcocer MD Unavailable Lucero Stevenson MD Unavailable Danni Marcus RN Unavailable Unavailable Mtkinsey, Kyle Complex Unavailable Unavailable Svetlana Osman [facility] Unavailable [phone] Doris Lai MD Primary Care Provider Encounter Details Date Type Department Care Team Description 07/12/2019 Travel Social History Tobacco Use Types Packs/Day [...] Haylie Gonzalez, [facility] [address] [place] [id number] (Wo rk) 11/15/2022 Virtual Visit IM[place] [address] [place] [address] [place] [address] (Wo rk) 03/03/2023 Virtual Visit Neurology Erlinda Barber MD [address] [place] [address] 295 [place], [place] [address]25 (Wo rk) documented as of this encounter Visit Diagnoses Not on filedocumented in this encounter Additional Health Concerns Assessment Noted Time PHQ-9 Depression Total Score: 4 04/12/2019 7:03 AM CDT documented as of this encounter Care Teams Sewer Hand Relationship Specialty Start Date End Date Doris Lai MD PCP - General 05/24/19 11/28/19 [address] [facility] [address] [place] [phone] Chastity Montero MD Dermatology 09/23/[address] [place] [address] 98 [place], [place] [address] Johnnie Alcocer MD Surgeon General Surgery 03/23/[address] [place] [address] Lucero Stevenson Assigned PCP 06/17/18 11/09/19 MD TOÑO [place]john [place] [address]75 [place] [address] Danni Marcus, RN Personal Advocate & 01/09/1901/17 Liaison (PAL) Fernando, Ea Complex 04/23/19 Svetlana Osman, Pharmacist Pharmacotherapy 04/23/19 [facility] [address] [place] [address] documented as of this encounter
--- OUTSIDE RECORDS SUMMARY | 2022-06-15 13:00 | XMS_ITS | Encounter Summary ---
:1945 Author Organization [place] Address [address] [place] [address] Care Team Providers Name Role Phone Chastity Montero MD Unavailable [phone] Johnnie Alcocer MD Unavailable Lucero Stevenson MD Unavailable Danni Marcus RN Unavailable Unavailable Mtkinsey, Kyle Complex Unavailable Unavailable Svetlana Osman [facility] Unavailable [phone] Doris Lai MD Primary Care Provider Encounter Details Date Type Department Care Team Description 07/14/2019 Travel Social History Tobacco Use Types Packs/Day [...] Pharm Haylie Gonzalez, [facility] [address] [facility] [address] [place] [phone] (Wo rk) 11/15/2022 Virtual Visit IM[place] [address] [place] [address] [place] [address] (Wo rk) 03/03/2023 Virtual Visit Neurology Erlinda Barber MD [address] [place] [address] 295 [place], [place] [address]505 (Wo rk) documented as of this encounter Visit Diagnoses Not on filedocumented in this encounter Additional Health Concerns Assessment Noted Time PHQ-9 Depression Total Score: 4 04/12/2019 7:03 AM CDT documented as of this encounter Care Teams Computer Engineering Technologist Relationship Specialty Start Date End Date Doris Lai MD PCP - General 05/24/19 11/28/[address] [facility] [address] [place] [phone] Chastity Montero MD Dermatology 09/23/[address] [place] [address] 98 [place], [place] [address] Johnnie Alcocer MD Surgeon General Surgery 03/23/17 [address] [place] [address] Lucero Stevenson Assigned PCP 06/17/18 11/09/19 MD TOÑO Littlejohn [place] 8675 [place] [address] Danni Marcus, RN Personal Advocate & 01/09/1901/17 Liaison (PAL) Fernando, Ea Complex 04/23/19 Svetlana Osman, Pharmacist Pharmacotherapy 04/23/19 [facility] [address] [facility] [place] [address] documented as of this encounter
--- OUTSIDE RECORDS SUMMARY | 2022-06-15 13:00 | XMS_ITS | Encounter Summary ---
:1945 Author Organization [place] Address [address] [facility] [place] [address] Care Team Providers Name Role Phone Chastity Montero MD Unavailable [phone] Johnnie Alcocer MD Unavailable Lucero Stevenson MD Unavailable [phone] Danni Marcus RN Unavailable Unavailable Mtm, Ea Complex Unavailable Unavailable Svetlana Osman [facility] Unavailable [phone] Doris Lai MD Primary Care Provider Encounter Details Date Type Department Care Team Description 07/04/2019 Home Infusion [facility] Reva Galvez, [facility] [address] [facility] [address] [place], [place] [phone] 660 [facility] [phone] [place] [address] (Wo rk) Social History Tobacco [...] this encounter Progress Notes Brook Pineda - 07/04/2019 11:59 PM CST This is a recent snapshot of the patient's [facility] medical record. For current drug dose and complete information and questions, call [phone] or [employer] ([id number]) CSN Number: [id number] Y II PAINTER documented in this encounter Plan of Treatment Upcoming Encounters Date Type Specialty Care Team Description 11/15/2022 Virtual Visit Pharm D Haylie Cheung, [facility] [address] [facility] [place] [address] (Wo winter) 11/15/2022 Virtual [place] [address] [place] [address] [place] [phone] (Wo rk) 03/03/2023 Virtual Visit Neurology Erlinda Barber MD [address] [facility] 295 [place] [address] (Wo rk) documented as of this encounter Visit Diagnoses Not on filedocumented in this encounter Additional Health Concerns Assessment Noted Time PHQ-9 Depression Total Score: 4 04/12/2019 7:03 AM CDT documented as of this encounter Care Teams Household Appliance Mechanic Relationship Specialty Start Date End Date Doris Lai MD PCP - General 05/24/19 11/28/19 [address] [facility] [address] [place] [phone] Chastity Montero MD Dermatology 09/23/14 [address] [facility] 98 [place], [place] [address] Johnnie Alcocer MD Surgeon General Surgery 03/23/17 [address] [facility] 300 [place] [address] Lucero Stevenson Assigned PCP 06/17/18 11/09/19 MD Annetta [facility] [address] [place] [address] Danni Marcus, CHANDLER Personal Advocate & 01/09/1901/17 Liaison (PAL) Fernando, Ea Complex 04/23/19 Svetlana Osman, Pharmacist Pharmacotherapy 04/23/[address] [place] [phone] documented as of this encounter
--- OUTSIDE RECORDS SUMMARY | 2022-06-15 13:00 | XMS_ITS | Encounter Summary ---
:1945 Author Organization [place] Address [facility] [place] [address] Care Team Providers Name Role Phone Chastity Montero MD Unavailable [phone] Johnnie Alcocer MD Unavailable Lucero Stevenson MD Unavailable [phone] Danni Marcus RN Unavailable Unavailable Mtm, Ea Complex Unavailable Unavailable Svetlana Osman [facility] Unavailable [phone] Doris Lai MD Primary Care Provider Encounter Details Date Type Department Care Team Description 07/12/2019 Hospital Encounter [facility] Maribell John, [facility] [address] [facility] INFECTIOUS [place], [place] [facility] [address] [place] [address] [place], [place] [address] (Wo rk) Social History [...] nystatin (MYCOSTATIN) Apply topically 0 8 09/11/2019 [id number] UNIT/GM external daily as needed cream nystatin (NYSTOP) 753954 APPLY TOPICALLY TO 60 g 0 02/201909/11/2019 [...] Team Description 11/15/2022 Virtual Visit Haylie Wakefield, [facility] [address] [place], [place] [phone] (Wo rk) 11/15/2022 Virtual Visit IM/Peds Yane Barraza MD [address] [facility] [place] [phone] (Wo rk) 03/03/2023 Virtual Visit Neurology Erlinda Barber MD [address] [place] [address] [facility] 295 [place], [place] [address] (Wo rk) documented as of this encounter Visit Diagnoses Not on filedocumented in this encounter Additional Health Concerns Assessment Noted Time PHQ-9 Depression Total Score: 4 04/12/2019 7:03 AM CDT documented as of this encounter Care Teams Financial Project Manager Relationship Specialty Start Date End Date Doris Lai MD PCP - General 05/24/19 11/28/19 [address] [facility] [place] [phone] Chastity Montero MD Dermatology 09/23/14 [address] [facility] 98 [place], [place] [address] Johnnie Alcocer MD Surgeon General Surgery 03/23/17 [address] [facility] [address] [place], [place] [address] Lucero Stevenson Assigned PCP 06/17/18 11/09/19 MD Annetta [facility] 8675 [place], [place] [phone] Danni Marcus, CHANDLER Personal Advocate & 01/09/1901/17 Liaison (PAL) Fernando, Kyle Complex 04/23/19 Svetlana Osman, Pharmacist Pharmacotherapy 04/23/19 [facility] [address] [facility] [place] [phone] documented as of this encounter
--- OUTSIDE RECORDS SUMMARY | 2022-06-15 13:00 | XMS_ITS | Encounter Summary ---
:1945 Author Organization [place] Address [address] [place] [address] Care Team Providers Name Role Phone Chastity Montero MD Unavailable [phone] Johnnie Alcocer MD Unavailable Lucero Stevenson MD Unavailable [phone] Danni Marcus RN Unavailable Unavailable Mtm, Ea Complex Unavailable Unavailable Svetlana Osman [facility] Unavailable [phone] Haylie Cheung [facility] Unavailable [phone] Galdino Valdez MD Unavailable Galdino Valdez MD Primary Care Provider Jaiden Holcomb MD Primary Care Provider Kendall Joseph MD Unavailable Erlinda Barber MD Unavailable Jaiden Holcomb MD Unavailable [phone] Doris Lai MD Primary Care Provider Ruth John MD Unavailable Kajal Huggins MD Unavailable Patience Toussaint NP Unavailable Brook Sánchez MD Unavailable Yane Barraza MD Primary Care Provider Osmar Kidd MD Unavailable Erlinda Barber MD Unavailable Yane Barraza MD Primary Care Provider Lenore Alcala MD Unavailable Haylie Cheung [facility] Unavailable [phone] Gaye Patrick RN Unavailable Unavailable Kenya Abernathy APRN ICE MAKER Unavailable [phone] Hayley German OD Unavailable [phone] Haylie Cheung [facility] Unavailable [phone] Encounter Details Date Type Department Care Team Description 07/02/2019 Records - [facility] CONVERSION Scan, Non-Provider [...] Care Team Description 11/15/2022 [facility] [address] [facility] [place] [id number] (Wo rk) 11/15/2022 Virtual Visit IM/Peds Yane Barraza MD [address] [place] [address] [place] [phone] (Wo rk) 03/03/2023 Virtual Visit Neurology Erlinda Barber MD [address] [place] [address] 295 [place], [place] [address] (Wo rk) documented as of this encounter Visit Diagnoses Not on filedocumented in this encounter Additional Health Concerns Assessment Noted Time PHQ-9 Depression Total Score: 4 04/12/2019 7:03 AM CDT documented as of this encounter Care Teams Button Cutting Machine Operator Relationship Specialty Start Date End Date Galdino Valdez MD PCP - General Family Practice 11/29/19 02/12/20 [address] [place], [place] [phone] Jaiden Holcomb PCP - General Internal Medicine 02/13/2010/03 MD Jayesh [address] [place] [address] [place] [phone] Doris Lai MD PCP - General 05/24/19 11/28/[address] [place] [address] [place] [phone] Yane Barraza MD PCP - General Internal Medicine 10/04/21 12/07/[address] [place] [address] [place] [address] Yane Barraza MD PCP - General Internal Medicine 12/08/[address] [place] [address] [place] [phone] Chastity Montero MD Dermatology 09/23/[address] [place] [address] 98 [place], [place] [address] Johnnie Alcocer MD Surgeon General Surgery 03/23/[address] [place] [address] Lucero Stevenson, Assigned PCP 06/17/18 MD TOÑO LOPEZ 8675 [place] [address] Danni Marcus, CHANDLER Personal Advocate & 01/09/1901/17 Liaison (PAL) Fernando, Ea Complex 04/23/19 Svetlana Osman, Pharmacist Pharmacotherapy 04/23/19 [facility] [address] [place] [address] Haylie Cheung, Pharmacist Pharmacist 09/11/[address] [place] [address] Galdino Valdez MD Assigned PCP 11/10/19 05/23/20 [address] [place] [address] Opal, Assigned Sleep 05/08/20 03/27/21 Kendall Meehan MD Provider [address] [place] [address] [place] [address] Erlinda Barber MD Assigned Neuroscience 05/08/20 01/26/21 [address] [place] [address] [facility] 295 [place] [address] Jaiden Holcomb Assigned PCP 05/24/20 MD Jayesh 909 [place] [address] Ruth John MD Assigned Infectious 01/29/21 07/03/21 [facility] INFECTIOUS Disease Provider [facility]ASE [facility] [address] [place] [place] [address] Kajal Huggins MD Assigned Neuroscience 01/29/21 10/23/21 2945 [facility] Provider [address] [place] [address] Patience Toussaint NP Assigned Surgical 01/29/21 02/11/22 2945 [facility] Provider [address] [place] [address] Brook Sánchez MD Assigned Infectious 07/04/21 [address] [facility] [place] [address] Osmar Kidd MD Assigned Sleep 09/26/[address] [place] [address] [place] [address] Erlinda Barber MD Assigned Neuroscience 10/24/21 [address] [place] [address] [facility] [address] Provider [place], [place] 58[address] Lenore Alcala MD Assigned Heart and 12/18/21 01/21/[address] [place] Vascular Provider [address] [place] [address] Haylie Cheung, Assigned MTM 01/08/22 [facility] Pharmacist [address] [facility] [address] [place] [phone] Gaye Patrick, RN Personal Advocate & 01/18/22 Liaison (PAL) Kenya Abernathy APRN Assigned Heart and 01/22/22 ICE MAKER Vascular Provider [address] [place] [address] Hayley German, Assigned Surgical 02/12/22 [place] Provider [address] [facility] [address] [place], [place] [phone] Haylie Cheung, Assigned MTM 04/13/22 [facility] Pharmacist [address] [place] [address] [place] [phone] documented as of this encounter
--- OUTSIDE RECORDS SUMMARY | 2022-06-15 13:00 | XMS_ITS | Encounter Summary ---
:1945 Author Organization [place] Address [facility] [place] [address] Care Team Providers Name Role Phone Chastity Montero MD Unavailable [phone] Johnnie Alcocer MD Unavailable Lucero Stevenson MD Unavailable Danni Marcus RN Unavailable Unavailable Mtm, Ea Complex Unavailable Unavailable Svetlana Osman [facility] Unavailable [phone] Haylie Cheung [facility] Unavailable [phone] Galdino Valdez MD Unavailable Galdino Valdez MD Primary Care Provider Jaiden Holcomb MD Primary Care Provider [phone] Kendall Joseph MD Unavailable Erlinda Barber MD Unavailable Jaiden Holcomb MD Unavailable Doris Lai MD Primary Care Provider Reason for Visit Reason Comments Patient Request Encounter Details Date Type Department Care Team Description 07/08/2019 [facility] Dora, Patient Request [facility] Jackson MD Ruth [address] [facility] [address] [address] [facility] [phone] [place] [address] Social History Tobacco Use Types Packs/Day Years [...] this encounter Miscellaneous Notes Telephone Encounter - Araceli Major RN - 07/08/2019 1:20 PM CST I called the pt and informed of the below. The pt understands and will call if the rash worsens. AULIC BULL RIVETER OPERATOR Telephone Encounter - Araceli Major RN - 07/08/2019 1:20 PM CST I reviewed Dr John's notes. ??OK to continue the benadryl. ??If she develops breathing problems or mouth/lip/throat swelling, she should stop the antibiotic. If rash continues, will need to change her antibiotics to ertapenem and vancomycin per Dr. John's recommendation. Anant Plummer MD AULIC BULL RIVETER OPERATOR Telephone Encounter - Araceli Major RN - 07/08/2019 11:33 AM CST I called the pt, she states that the spots are mostly on her arm. She states that she has slight itching. The pt states that she has more spots today then she did previously. The pt states that she is taking benadryl to help. The pt denies any s/s of anaphylactic shock. I informed I will speak to the inspector canned food reconditioning MD and contact her back. AULIC BULL RIVETER OPERATOR Telephone Encounter - Tani Post - 07/08/2019 9:[address] John patient. She is on ampicillin and noticed random pink itchy spots on her left arm. This is the opposite arm from where the picc line is. The spots above the elbow are itchy and the spots between elbow and wristare not. She also has spots on her right hand and fore arm. This all started on Monday Charlette @ [phone] AULIC BULL RIVETER OPERATOR documented in this encounter Plan of Treatment Upcoming Encounters Date Type Specialty Care Team Description 11/15/2022 Virtual Visit Pharm Haylie Gonzalez, [facility] 1440 [facility] [place] [address] (Wo rk) 11/15/2022 Virtual Visit IM/Peds Yane Barraza MD [address] [facility] [place] [address] (Wo rk) 03/03/2023 Virtual Visit Neurology Erlinda Barber MD 420 [facility] 295 [place], [place] [address] (Wo rk) documented as of this encounter Visit Diagnoses Not on filedocumented in this encounter Additional Health Concerns Assessment Noted Time PHQ-9 Depression Total Score: 4 04/12/2019 7:03 AM CDT documented as of this encounter Care Teams Patient Clerical Assistant Relationship Specialty Start Date End Date Galdino Valdez MD PCP - General Family Practice 11/29/19 02/12/20 [address] [place] [address] Jaiden Holcomb PCP - General Internal Medicine 02/13/2010/03 MD Jayesh [address] [facility] [address] [place] [phone] Doris Lai MD PCP - General 05/24/19 11/28/[address] [facility] [address] [place] [phone] Chastity Montero MD Dermatology 09/23/14 [address] [place] [address] [facility] 98 [place] [address] Johnnie Alcocer MD Surgeon General Surgery 03/23/17 [address] [facility] 300 [place], [place] [phone] Lucero Stevenson, Assigned PCP 06/17/18 MD TOÑO LOPEZ 8675 [place], [place] [phone] Danni Marcus, RN Personal Advocate & 01/09/1901/17 Liaison (PAL) Kyle King Complex 04/23/19 Svetlana sOman, Pharmacist Pharmacotherapy 04/23/19 [facility] [address] [place], [place] [phone] Haylie Cheung, Pharmacist Pharmacist 09/11/19 [facility] [address] [place], [place] [phone] Galdino Valdez MD Assigned PCP 11/10/19 05/23/20 [address] [place], [place] [phone] Opal, Assigned Sleep 05/08/20 03/27/21 Kendall Meehan MD Provider [address] [facility] 106 [place], [place] [phone] Erlinda Barber MD Assigned Neuroscience 05/08/20 01/26/21 420 [facility] 295 [place] [address] Jaiden Holcomb Assigned PCP 05/24/20 MD Jayesh 909 [place] [address] documented as of this encounter
--- OUTSIDE RECORDS SUMMARY | 2022-06-15 13:00 | XMS_ITS | Encounter Summary ---
:1945 Author Organization [place] Address [address] [facility] [place] [address] Care Team Providers Name Role Phone Chastity Montero MD Unavailable [phone] Johnnie Alcocer MD Unavailable Lucero Stevenson MD Unavailable [phone] Danni Marcus RN Unavailable Unavailable Mtm, Ea Complex Unavailable Unavailable Svetlana Osman [facility] Unavailable [phone] Doris Lai MD Primary Care Provider Encounter Details Date Type Department Care Team Description 07/08/2019 Home Infusion [facility] Reva Galvez, [facility] [address] [facility] [address] [place], [place] [phone] [facility] [phone] [place] [address] (Wo rk) Social History Tobacco [...] this encounter Progress Notes Agustin Post - 07/08/2019 11:59 PM CST This is a recent snapshot of the patient's [facility] medical record. For current drug dose and complete information and questions, call [phone] or In [employer], homeinfusion ([id number]) CSN Number: [id number] TRONIC WARFARE OFFICER documented in this encounter Plan of Treatment Upcoming Encounters Date Type Specialty Care Team Description 11/15/2022 Virtual Visit Pharm D Haylie Cheung, [facility] [address] [facility] [place] [address] (Wo winter) 11/15/2022 Virtual [place] [address] [place] [address] [place] [phone] (Wo rk) 03/03/2023 Virtual Visit Neurology Erlinda Barber MD [address] [facility] [address] [place] [address] (Wo rk) documented as of this encounter Visit Diagnoses Not on filedocumented in this encounter Additional Health Concerns Assessment Noted Time PHQ-9 Depression Total Score: 4 04/12/2019 7:03 AM CDT documented as of this encounter Care Teams Senior Benefits Specialist Relationship Specialty Start Date End Date Doris Lai MD PCP - General 05/24/19 11/28/[address] [place] [address] [place] [phone] Chastity Montero MD Dermatology 09/23/14 [address] [facility] [address] [place], [place] [address] Johnnie Alcocer MD Surgeon General Surgery 03/23/17 [address] [facility] 300 [place], [place] [phone] Lucero Stevenson Assigned PCP 06/17/18 11/09/19 MD Annetta [facility] [address] [place] [address] Danni Marcus, CHANDLER Personal Advocate & 01/09/1901/17 Liaison (PAL) Fernando, Ea Complex 04/23/19 Svetlana Osman, Pharmacist Pharmacotherapy 04/23/[address] [place] [phone] documented as of this encounter
--- OUTSIDE RECORDS SUMMARY | 2022-06-15 13:00 | XMS_ITS | Encounter Summary ---
:1945 Author Organization [place] Address [facility] [place] [address] Care Team Providers Name Role Phone Chastity Montero MD Unavailable [phone] Johnnie Alcocer MD Unavailable Lucero Stevenson MD Unavailable [phone] Danni Marcus RN Unavailable Unavailable Mtm, Ea Complex Unavailable Unavailable Svetlana Osman [facility] Unavailable [phone] Doris Lai MD Primary Care Provider Encounter Details Date Type Department Care Team Description 06/28/2019 Hospital Encounter [facility] Maribell John, [facility] [address] annemarie [facility] INFECTIOUS [place], [place] [facility] [phone] [place] [address] [place], [place] [address] (Wo rk) Social History [...] nystatin (MYCOSTATIN) Apply topically 0 8 09/11/2019 [id number] UNIT/GM external daily as needed cream nystatin (NYSTOP) 420694 APPLY TOPICALLY TO 60 g 0 02/201909/11/2019 [...] Visit Haylie Wakefield, [facility] [address] [facility] [address] [place], [place] [phone] (Wo rk) 11/15/2022 Virtual Visit IM/Peds Yane Barraza MD [address] [facility] [place] [phone] (Wo rk) 03/03/2023 Virtual Visit Neurology Erlinda Barber MD [address] [facility] 295 [place], [place] [address] (Wo rk) documented as of this encounter Visit Diagnoses Not on filedocumented in this encounter Additional Health Concerns Assessment Noted Time PHQ-9 Depression Total Score: 4 04/12/2019 7:03 AM CDT documented as of this encounter Care Teams Fitting Room Supervisor Relationship Specialty Start Date End Date Doris Lai MD PCP - General 05/24/19 11/28/19 [address] [facility] [place] [phone] Chastity Montero MD Dermatology 09/23/14 [address] [facility] 98 [place], [place] [address] Johnnie Alcocer MD Surgeon General Surgery 03/23/17 [address] [facility] 300 [place], [place] [address] Lucero Stevenson Assigned PCP 06/17/18 11/09/19 MD Annetta [facility] 8675 [place], [place] [phone] Danni Marcus, CHANDLER Personal Advocate & 01/09/1901/17 Liaison (PAL) Fernando, Kyle Complex 04/23/19 Svetlana Osman, Pharmacist Pharmacotherapy 04/23/19 [facility] [address] [facility] [place] [phone] documented as of this encounter
--- OUTSIDE RECORDS SUMMARY | 2022-06-15 13:00 | XMS_ITS | Encounter Summary ---
:1945 Author Organization [place] Address [address] [place] [address] Care Team Providers Name Role Phone Chastity Montero MD Unavailable [phone] Johnnie Alcocer MD Unavailable Lucero Stevenson MD Unavailable [phone] Danni Marcus RN Unavailable Unavailable Mtkinsey, Kyle Complex Unavailable Unavailable Svetlana Osman [facility] Unavailable Doris Lai MD Primary Care Provider Encounter Details Date Type Department Care Team Description 06/28/2019 Travel Social History Tobacco Use Types Packs/Day [...] Virtual Visit Pharm Haylie Gonzalez, [facility] [address] [facility] [address] [place] [phone] (Wo rk) 11/15/2022 Virtual Visit [place] [address] [place] [address] [place] [address] (Wo rk) 03/03/2023 Virtual Visit Neurology Erlinda Barber MD [address] [place] [address] 295 [place], [place] [address] (Wo rk) documented as of this encounter Visit Diagnoses Not on filedocumented in this encounter Additional Health Concerns Assessment Noted Time PHQ-9 Depression Total Score: 4 04/12/2019 7:03 AM CDT documented as of this encounter Care Teams Avaya Engineer Relationship Specialty Start Date End Date Doris Lai MD PCP - General 05/24/19 11/28/[address] [facility] [address] [place] [phone] Chastity Montero MD Dermatology 09/23/[address] [place] [address] 98 [place], [place] [address] Johnnie Alcocer MD Surgeon General Surgery 03/23/17 [address] [place] [address] Lucero Stevenson Assigned PCP 06/17/18 11/09/19 MD TOÑO [facility] 8675 [place] [address] Danni Marcus, RN Personal Advocate & 01/09/1901/17 Liaison (PAL) Fernando, Ea Complex 04/23/19 Svetlana Osman, Pharmacist Pharmacotherapy 04/23/19 [facility] [address] [place] [address] documented as of this encounter
--- OUTSIDE RECORDS SUMMARY | 2022-06-15 13:00 | XMS_ITS | Encounter Summary ---
:1945 Author Organization [place] Address [address] [place] [address] Care Team Providers Name Role Phone Chastity Montero MD Unavailable [phone] Johnnie Alcocer MD Unavailable Lucero Stevenson MD Unavailable [phone] Danni Marcus RN Unavailable Unavailable MtKyle euceda Complex Unavailable Unavailable Svetlana Osman [facility] Unavailable [phone] Doris Lai MD Primary Care Provider Reason for Visit Reason Onset Date Comments Orders 07/08/2019 Encounter Details Date Type Department Care Team Description 07/08/2019 [facility] Doris Agarwal MD Orders [facility] [address] [facility] 3[address] [facility] [place] [address] [address] [place] [address] [phone] Social History Tobacco Use Types Packs/Day Years [...] this encounter Miscellaneous Notes Telephone Encounter - Michelle Snowden, RN - 07/08/2019 11:30 AM CST Michelle from [facility] calling to get orders for penitentiary 1 X week for 2 weeks. Verbal orders given. Michelle Snowden RN on 07/08/2019 at 11:37 AM ING AND COOLING SYSTEMS ENGINEER documented in this encounter Plan of Treatment Upcoming Encounters Date Type Specialty Care Team Description 11/15/2022 Virtual Visit Pharm D Haylie Cheung, [facility] [address] [facility] [place] [address] (Wo winter) 11/15/2022 Virtual [place] [address] [place] [address] [place] [phone] (Wo rk) 03/03/2023 Virtual Visit Neurology Erlinda Barber MD [address] [facility] 295 [place] [address] (Wo rk) documented as of this encounter Visit Diagnoses Not on filedocumented in this encounter Additional Health Concerns Assessment Noted Time PHQ-9 Depression Total Score: 4 04/12/2019 7:03 AM CDT documented as of this encounter Care Teams Bridal Stylist Sales Consultant Relationship Specialty Start Date End Date Doris Lai MD PCP - General 05/24/19 11/28/[address] [place] [address] [address] [place] [phone] Chastity Montero MD Dermatology 09/23/14 [address] [facility] 98 [place], [place] [address] Johnnie Alcocer MD Surgeon General Surgery 03/23/17 [address] [facility] [address] [place], [place] [phone] Lucero Stevenson Assigned PCP 06/17/18 11/09/19 MD Annetta [facility] [address] [place] [address] Danni Marcus, CHANDLER Personal Advocate & 01/09/1901/17 Liaison (PAL) Fernando, Ea Complex 04/23/19 Svetlana Osman, Pharmacist Pharmacotherapy 04/23/[address] [place] [phone] documented as of this encounter
--- OUTSIDE RECORDS SUMMARY | 2022-06-15 13:00 | XMS_ITS | Encounter Summary ---
:1945 Author Organization [place] Address [facility] [place] [address] Care Team Providers Name Role Phone Chastity Montero MD Unavailable [phone] Johnnie Alcocer MD Unavailable Lucero Stevenson MD Unavailable [phone] Danni Marcus RN Unavailable Unavailable Mtm, Ea Complex Unavailable Unavailable Svetlana Osmna [facility] Unavailable [phone] Doris Lai MD Primary Care Provider Reason for Visit Reason Comments Blood Draw and dressing change Encounter Details Date Type Department Care Team Description 07/05/2019 Infusion Therapy [facility] Halfway Visit Cancer Center MD Ruth (Primary Dx) [facility] INFECTIOUS [facility] [address] [address] [place] [address] [place] [address] [phone] Social History Tobacco Use Types Packs/Day Years [...] 05/03/2021 organizations such as jew groups, unions, [email or web address] or athletic groups, or school groups? How [...] documented as of this encounter Progress Notes Elizabeth Mtz, RN - 07/05/2019 10:00 AM CST Nursing Note: Charlette Brush presents today for Dressing change and labs. Patient seen by provider today: No Welder Tack present during visit today: Not Applicable. Note: N/A. Intravenous Access: PICC. Discharge Plan: Patient was sent to home. Elizabeth Mtz, RN, RN Y BLENDER documented in this encounter Plan of Treatment Upcoming Encounters Date Type Specialty Care Team Description 11/15/2022 Virtual Visit Pharm Haylie Gonzalez, [facility] [address] [facility] [place] [address] (Lena max) 11/15/2022 Virtual Visit [place] [address] [place] [address] [address] [place] [phone] (Wo winter) 03/03/2023 Virtual Visit Neurology Erlinda Barber MD 420 [facility] 295 [place] [address] (Wo winter) documented as of this encounter Procedures Procedure Name Priority Date/Time Associated Comments Diagnosis CBC WITH PLATELETS & Routine 07/05/2019 10:02 Health Halfway Results for this DIFFERENTIAL AM SPRAY BLENDER procedure are i n the results section. CRP INFLAMMATION Routine 07/05/2019 10:02 Health [facility]way Res ults for this AM SPRAY BLENDER procedure are i n the results section. BASIC METABOLIC PANEL Routine 07/05/2019 10:02 Health Care Amber e Results for this AM SPRAY BLENDER procedure are i n the results section. documented in this encounter Results CRP inflammation (07/05/2019 10:02 AM SPRAY BLENDER) P athologist Signature CRP Inflammation 4.3 0.0 - 8.0 07/05/2019 [facility] mg/L 10:36 AM [facility] Specimen Anatomical Collection Method Collection Time Receive d Time (Source) Location / / Volume Laterality Blood specimen 07/05/2019 10:02 9 (specimen) AM SPRAY BLENDER 10:17 AM SPRAY BLENDER Ruth John MD LAB - BLOOD ORDERABLES Performing Organization Address City/State/ZIP Code Phon e Number [place] [address] [address] [place] [address] [place] [address] [phone] (ABNORMAL) Basic metabolic panel (07/05/2019 10:02 AM SPRAY BLENDER) Analysis Performed At Patho logist Time Signature Sodium 140 133 - 144 07/05/2019 [facility] mmol/L 10:29 AM [facility] Potassium 4.2 3.4 - 5.3 07/05/2019 [facility] mmol/L 10:29 AM [facility] Chloride 110 (H) 94 - 109 07/05/2019 [facility] mmol/L 10:29 AM [facility] Carbon Dioxide 26 20 - 32 07/05/2019 [facility] mmol/L 10:36 AM [facility] Anion Gap 4 3 - 14 07/05/2019 [facility] mmol/L 10:36 AM [facility] Glucose 85 70 - 99 07/05/2019 [facility] mg/dL 10:36 AM [facility] Urea Nitrogen 22 7 - 30 07/05/2019 [facility] mg/dL 10:36 AM [facility] Creatinine 0.50 (L) 0.52 - 07/05/2019 [facility] 1.04 mg/dL 10:36 AM [facility] GFR Estimate >90 >60 07/05/2019 [facility] mL/min/{1. 10:36 AM [facility] 73_m2} HOSPITAL Comment: Non GFR Calc Starting 07/03/2018, serum creatinine ba sed estimated GFR (eGFR) will be calculated using the Chronic Kidney Dise [facility] Epidemiology Collaboration (CKD-EPI) equation. GFR Estimate If >90 >60 mL/min/{1.73_m2} 07/05/2019 10 :36 AM [facility] Comment: GFR Calc Starting 07/03/2018, serum creatinine ba sed estimated GFR (eGFR) will be calculated using the Chronic Kidney Dise [facility] Epidemiology Collaboration (CKD-EPI) equation. Calcium 8.9 8.5 - 10.1 mg/dL 07/05/2019 10:36 AM [facility] Specimen Anatomical Collection Method Collection Time Receive d Time (Source) Location / / Volume Laterality Blood specimen 07/05/2019 10:02 9 (specimen) AM SPRAY BLENDER 10:17 AM SPRAY BLENDER Ruth John MD LAB - BLOOD ORDERABLES Performing Organization Address City/State/ZIP Code Phon e Number [place] [address] [address] [place] [address] [phone] CBC with platelets differential (07/05/2019 10:02 AM SPRAY BLENDER) [facility] Method Time Signature WBC 6.0 4.0 - 07/05/2019 [facility] 11.0 10:19 AM [facility] 10e9/L [facility] RBC Count 4.75 3.8 - 5.2 07/05/2019 [facility] 10e12/L 10:19 AM [facility] Hemoglobin 14.3 11.7 - 07/05/2019 [facility] 15.7 g/dL 10:19 AM [facility] Hematocrit 43.9 35.0 - 07/05/2019 [facility] 47.0 % 10:19 AM [facility] MCV 92 78 - 100 07/05/2019 [facility] fl 10:19 AM [facility] MCH 30.1 26.5 - 07/05/2019 [facility] 33.0 pg 10:19 AM [facility] MCHC 32.6 31.5 - 07/05/2019 [facility] 36.5 g/dL 10:19 AM [facility] RDW 14.0 10.0 - 07/05/2019 [facility] 15.0 % 10:19 AM [facility] Platelet Count 231 150 - 450 07/05/2019 [facility] 10e9/L 10:19 AM [facility] Diff Method Automated 07/05/2019 [facility] Method 10:19 AM [facility] % Neutrophils 64.7 % 07/05/2019 [facility] 10:19 AM [facility] % Lymphocytes 21.6 % 07/05/2019 [facility] 10:19 AM [facility] % Monocytes 9.3 % 07/05/2019 [facility] 10:19 AM [facility] % Eosinophils 3.3 % 07/05/2019 [facility] 10:19 AM [facility] % Basophils 0.8 % 07/05/2019 [facility] 10:19 AM [facility] % Immature 0.3 % 07/05/2019 [facility] Granulocytes 10:19 AM [facility] Nucleated RBCs 0 0 /100 07/05/2019 [facility] 10:19 AM [facility] Absolute 3.9 1.6 - 8.3 07/05/2019 [facility] Neutrophil 10e9/L 10:19 AM [facility] Absolute 1.3 0.8 - 5.3 07/05/2019 [facility] Lymphocytes 10e9/L 10:19 AM [facility] Absolute 0.6 0.0 - 1.3 07/05/2019 [facility] Monocytes 10e9/L 10:19 AM [facility] Absolute 0.2 0.0 - 0.7 07/05/2019 [facility] Eosinophils 10e9/L 10:19 AM [facility] Absolute 0.1 0.0 - 0.2 07/05/2019 [facility] Basophils 10e9/L 10:19 AM [facility] Abs Immature 0.0 0 - 0.4 07/05/2019 [facility] Granulocytes 10e9/L 10:19 AM [facility] Absolute 0.0 07/05/2019 [facility] Nucleated RBC 10:19 AM [facility] Specimen Anatomical Collection Method Collection Time Receive d Time (Source) Location / / Volume Laterality Blood specimen 07/05/2019 10:02 9 (specimen) AM SPRAY BLENDER 10:17 AM SPRAY BLENDER Ruth John MD LAB - BLOOD ORDERABLES Performing Organization Address City/State/ZIP Code Phon e Number M [facility] [address] [place], [place] [address] [facility] [address] [place], [place] [address] 7[facility] [phone] documented in this encounter Visit Diagnoses Diagnosis Health [facility] - Primary notesas part of the Health Halfway wor kflow to capture care coordination pl documented in this encounter Additional Health Concerns Assessment Noted Time PHQ-9 Depression Total Score: 4 04/12/2019 7:03 AM CDT documented as of this encounter Care Teams Tire Building Supervisor Relationship Specialty Start Date End Date Doris Lai MD PCP - General 05/24/19 11/28/[address] [facility] [address] [place], [place] [phone] Chastity Montero MD Dermatology 09/23/[address] [place] [address] 98 [place], [place] [address] Johnnie Alcocer MD Surgeon General Surgery 03/23/17 [address] [facility] 300 [place], [place] [address] Lucero Stevenson Assigned PCP 06/17/18 11/09/19 MD Annetta [facility]3] [address] [place] [phone] Danni Marcus, CHANDLER Personal Advocate & 01/09/1901/17 Liaison (PAL) Fernando, Kyle Complex 04/23/19 Svetlana Osman, Pharmacist Pharmacotherapy 04/23/19 [facility] [address] [facility] [address] [place] [phone] documented as of this encounter
--- OUTSIDE RECORDS SUMMARY | 2022-06-15 13:00 | XMS_ITS | Encounter Summary ---
:1945 Author Organization [facility] Address [address] [facility] [address] Care Team Providers Name Role Phone Chastity Montero MD Unavailable [phone] Johnnie Alcocer MD Unavailable Lucero Stevenson MD Unavailable [phone] Danni Marcus RN Unavailable Unavailable Mtm, Ea Complex Unavailable Unavailable Svetlana Osman [facility] Unavailable [phone] Doris Lai MD Primary Care Provider Encounter Details Date Type Department Care Team Description 07/01/2019 Home Infusion [facility] Reva Galvez, [facility] [address] [facility] [address] [place], [place] [phone] 030 [facility] [phone] [place] [address] (Wo rk) Social History Tobacco [...] this encounter Progress Notes Amparo Mijares - 07/01/2019 11:59 PM CST This is a recent snapshot of the patient's [facility] medical record. For current drug dose and complete information and questions, call [phone] or In [employer], [employer] home[facility]ushmore.fmusion ([id number]) CSN Number: [id number] PIECE COVERER documented in this encounter Plan of Treatment Upcoming Encounters Date Type Specialty Care Team Description 11/15/2022 Virtual Visit Pharm D Haylie Cheung, [facility] [address] [facility] [place] [address] (Wo winter) 11/15/2022 Virtual Visit [place] [address] [place] [address] [place] [phone] (Wo rk) 03/03/2023 Virtual Visit Neurology Erlinda Barber MD 420 [facility] 295 [place], [place] [address] (Wo rk) documented as of this encounter Visit Diagnoses Not on filedocumented in this encounter Additional Health Concerns Assessment Noted Time PHQ-9 Depression Total Score: 4 04/12/2019 7:03 AM CDT documented as of this encounter Care Teams Digital Designer Relationship Specialty Start Date End Date Doris Lai MD PCP - General 05/24/19 11/28/[address] [place] [address] [place] [phone] Chastity Montero MD Dermatology 09/23/14 420 [facility] 98 [place], [place] [address] Johnnie Alcocer MD Surgeon General Surgery 03/23/17 [address] [facility] 300 [place] [address] Lucero Stevenson Assigned PCP 06/17/18 11/09/19 MD An[facility]ta [facility] [address] [place] [address] Danni Marcus, CHANDLER Personal Advocate & 01/09/1901/17 Liaison (PAL) Fernando, Ea Complex 04/23/19 Svetlana Osman, Pharmacist Pharmacotherapy 04/23/[address] [place], [place] [phone] documented as of this encounter
--- OUTSIDE RECORDS SUMMARY | 2022-06-15 13:00 | XMS_ITS | Encounter Summary ---
:1945 Author Organization [place] Address [address] [place] [address] Care Team Providers Name Role Phone Chastity Montero MD Unavailable [phone] Johnnie Alcocer MD Unavailable Lucero Stevenson MD Unavailable [phone] Danni Marcus RN Unavailable Unavailable MtKyle euceda Complex Unavailable Unavailable Svetlana Osman [facility] Unavailable [phone] Doris Lai MD Primary Care Provider Reason for Visit Reason Onset Date Comments INR RESULTS 07/02/2019 Encounter Details Date Type Department Care Team Description 07/02/2019 [facility] Doris Agarwal MD INR RESULTS [place] [address] [facility] [address] [facility] [place] [address] [address] [place] [address] [phone] Social History Tobacco Use Types Packs/Day Years [...] Telephone Encounter - Sasha Rueda RN - 07/02/2019 10:10 AM CST ANTICOAGULATION MANAGEMENT Patient Name: Charlette Brush Date: 07/02/2019 ASSESSMENT /SUBJECTIVE: Today's INR result of 2.5 [...] ??? Additional findings: None PLAN: Spoke with [facility] regarding INR result and instructed: Warfarin Dosing Instructions: Continue your current warfarin dose Instructed patient to follow up no later than: 2 weeks Education provided: Yes: Watch for increased signs of bruising and bleeding and if noted to be seen right away [facility], Nurse verbalizes understanding and agrees to warfarin dosing plan. Instructed to call the Anticoagulation Clinic for any changes, questions or concerns. 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] 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 current use of 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 [Z79.01] Anticoagulation Episode Summary INR check location: Preferred lab: EXTERNAL LAB Send INR reminders to: ZHEN [facility]ONA Comments: 3mg & 10mg tabs - devaughn dose / [facility] qod - Kana [phone] / APPT CARD ONLY Anticoagulation Care Providers Provider Role Specialty Phone number Lucero Stevenson MD Internal Medicine [phone] ER TERRAPIN documented in this encounter Plan of Treatment Upcoming Encounters Date Type Specialty Care Team Description 11/15/2022 Virtual Visit Pharm D Haylie Cheugn, [facility] [address] [place] [address] [place] [address] ([place]) 11/15/2022 Virtual Visit [place] [address] [place] [address] [place] [address] (Wo winter) 03/03/2023 Virtual Visit Neurology Erlinda Barber MD [address] [facility] [address] [place] [address] ([place]o winter) documented as of this encounter Procedures Procedure Name Priority Date/Time Associated Diagnosis Comme nts INR Routine 07/02/2019 Results for thi s procedure are in the resu lts section. documented in this encounter Results (ABNORMAL) INR (07/02/2019) P athologist Signature INR 2.5 (A) 0.90 - 1.10 EXTERNAL LAB Specimen (Source) Anatomical Location Collection Method / Collectio n Time Received Time / Laterality Volume Blood specimen 07/02/2019 (specimen) Resulting Agency Comment Home Care Patient Reported LAB - BLOOD ORDERABLES Performing Organization Address City/State/ZIP Code Phon e Number EXTERNAL LAB EXTERNAL LAB External Lab documented in this encounter Visit Diagnoses Diagnosis 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 embolism 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 current use of anticoagulant t herapy documented in this encounter Additional Health Concerns Assessment Noted Time PHQ-9 Depression Total Score: 4 04/12/2019 7:03 AM CDT documented as of this encounter Care Teams Knitting Machine Operator Automatic Relationship Specialty Start Date End Date Doris Lai MD PCP - General 05/24/19 11/28/[address] [facility] [address] [place], [place] [id number] Chastity Montero MD Dermatology 09/23/[address] [place] [address] [address] [place], [place] [address] Johnnie Alcocer MD Surgeon General Surgery 03/23/[address] [place], [place] [phone] Lucero Stevenson Assigned PCP 06/17/18 11/09/19 MD Annetta [facility] 86[address] [place] [address] Danni Marcus, CHANDLER Personal Advocate & 01/09/1901/17 Liaison (PAL) Fernando, Kyle Complex 04/23/19 Svetlana Osman, Pharmacist Pharmacotherapy 04/23/19 [facility] [address] [facility] [address] [place] [id number] documented as of this encounter
--- OUTSIDE RECORDS SUMMARY | 2022-06-15 13:00 | XMS_ITS | Encounter Summary ---
:1945 Author Organization [place] Address [address] [place] [address] Care Team Providers Name Role Phone Chastity Montero MD Unavailable [phone] Johnnie Alcocer MD Unavailable Lucero Stevenson MD Unavailable Danni Marcus RN Unavailable Unavailable Mtm, Ea Complex Unavailable Unavailable Svetlana Osman [facility] Unavailable [phone] Haylie Cheung [facility] Unavailable [phone] Galdino Valdez MD Unavailable Galdino Valdez MD Primary Care Provider Jaiden Holcomb MD Primary Care Provider Kendall Joseph MD Unavailable Erlinda Barber MD Unavailable Jaiden Holcomb MD Unavailable [phone] Doris Lai MD Primary Care Provider Reason for Visit Reason Comments Follow Up Encounter Details Date Type Department Care Team Description 07/11/2019 Office Visit - [facility] Mariano Hameed, Ot er chronic [facility] Mahamed PATEL osteomyelitis, [facility] [place] [address] Street (H) [facility] [address] [address] [place], [place] [phone] [address] Social History Tobacco Use Types Packs/Day Years [...] Sign Reading Time Taken Comments Blood Pressure 138/78 07/11/2019 10:13 AM THIRD LOADER Pulse 84 07/11/2019 10:13 AM THIRD LOADER Temperature 36.6 ??C (97.8 ??F) 07/11/2019 10:13 AM THIRD LOADER Respiratory Rate - - Oxygen Saturation - - Inhaled Oxygen Concentration - - Weight 153.3 kg (338 lb) 07/11/2019 10:13 AM THIRD LOADER Height - - Body Mass Index 52.94 05/15/2019 10:08 AM CDT documented in this encounter Progress Notes Mariano Hameed MD - 07/11/2019 10:30 AM CST [facility] follow-up note. Name: Charlette Brush : 1945 PCP: Doris Lai MD DOS: 07/11/19 CC: Ischial osteomyelitis associated with chronic nonhealing wound. HPI/Interval History: Patient is here for a follow-up appointment. She previously saw Dr. John. This is my first visit with the patient. At the last visit, the patient was started on Unasyn, continuous infusion. Initially, she was tolerating this well. About 5 days ago she started having rash on her arms, legs, chest with pruritus. She takes Benadryl and this helps. There has not been steady progression of rash, actually a little bit better today. The patient denies any issues with her PICC line. The Unasyn was delivered to the wrong address at one point, but she did not miss any doses. The patient gets wound care regularly. Overall there seems to be improvement from last month. There is significantly less drainage, and the smell is much better. There was some concern of erythema around the wound, possibly from a fungal infection. She has been receiving topical nystatin, which seems to be helping. PMH: Past Medical History: Diagnosis Date ??? Acute [...] Patient has appointment with Retina Specialist at [facility] on 01/11. 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 ??? Morbid obesity (H) ??? [...] Referral placed for Dr. Kajal Huggins at [facility] in [place] per patient request. She has contact i [...] and confirm.) ??? Weakness left lower limb PSH: Past Surgical History: Procedure Laterality Date ??? cholectomy ??? NERVE REPAIR left ??? sciatic nerve transection ??? TONSILLECTOMY ??? wound irrigation and debridement posterior upper thigh ??? wound irrigation and debridement left buttocks Social History/Family History: No smoking or drinking. No family history of recurrent infection. Allergies: Allergies Allergen Reactions ??? Cephalexin ??? Ciprofloxacin Developed rash while on Cipro and Clindamycin ??? Clindamycin Developed rash while taking Clindamycin and Cipro ??? Lanolin ??? Lisinopril ??? Mupirocin ??? Neomycin ??? Penicillins Medications: Current Outpatient Medications on File Prior to Visit Medication Sig Dispense Refill ??? hydrocortisone 2.5 % ointment Apply topically 2 (two) times a day. ??? acetaminophen (TYLENOL) 325 MG tablet Take 975 mg by mouth every 8 (eight) hours as needed for pain. ??? ampicillin-sulbactam (UNASYN) 3 gram SolR ??? ascorbic acid, vitamin C, (VITAMIN C) 500 MG tablet Take 500 mg by mouth. ??? atenolol (TENORMIN) 25 MG tablet Take 25 mg by mouth 2 (two) times a day. ??? calcium polycarbophil (FIBERCON) 625 mg tablet Take 1,250 mg by mouth 3 (three) times a day. ??? cetirizine (ZYRTEC) 10 MG tablet Take 10 mg by mouth 2 (two) times a day. ??? cholecalciferol, vitamin D3, 500 unit Take 200 Units by mouth. ??? desoximetasone (TOPICORT) 0.05 % Gel Apply twice daily as needed to arms and legs ??? ferrous sulfate 325 (65 FE) MG tablet Take 325 mg by mouth. ??? furosemide (LASIX) 40 MG tablet Take 20-40 mg by mouth. ??? levETIRAcetam (KEPPRA) 500 MG tablet Take 500 mg by mouth 2 (two) times a day. ??? losartan (COZAAR) 50 MG tablet Take 50 mg by mouth daily. ??? gfxqvalyvoyf-srkourwe-mdodsb (CEROVITE SENIOR) tablet Take 1 tablet by mouth at bedtime. ??? nystatin (MYCOSTATIN) cream Apply topically. ??? sodium hypochlorite (DAKIN'S, HALF-STRENGTH,) external solution Irrigate with as directed daily. ??? warfarin (COUMADIN) 10 MG tablet Take 10 mg by mouth daily. No current facility-administered medications on file prior to visit. Review of System: No fevers, no chills, no abdominal pain Exam VS: Vitals: 07/11/19 1013 BP: 138/78 Pulse: 84 Temp: 97.8 ??F (36.6 ??C) Gen: Pleasant in no acute distress. HEENT: NCAT. EOMI. Lungs: Normal respiratory pattern MSK: Large left ischial wound that goes deep. Healthy granulation tissue at the base, without significant drainage or smell. There is surrounding skin erythema, proved compared to cell phone picture. Skin: Patchy erythema on the neck, upper chest, arms, and legs. Right upper extremity PICC line without surrounding inflammation. Neuro: Alert and oriented to place time and person. Cranial nerves grossly intact. Labs: Wound culture, gram stain Order: [id number] Status: Edited Result - FINAL ?Visible to patient: Yes (MyChart) Next appt: Today at 02:20 PM in Vascular Surgery (Patience Toussaint NP) Dx: Other chronic osteomyelitis, unspecif... Specimen Information: Wound; Swab ?? Culture 3+ DiphtheroidsAbnormal 2+ Enterococcus faecalisAbnormal 2+ Proteus mirabilisAbnormal ?? Gram Stain Result 1+ Polymorphonuclear leukocytes 2+ Gram positive cocci in pairs 1+ Gram positive bacilli, diphtheroid like Resulting Agency: [facility] Susceptibility Enterococcus faecalis Proteus mirabilis LOW LOW Amikacin <=8 Sensitive Amoxicillin + Clavulanate 8/4 Sensitive Ampicillin 2 Sensitive >16 Resistant Cefazolin 8 Sensitive Cefepime <=1 Sensitive Ceftriaxone <=1 Sensitive Ciprofloxacin >2 Resistant Gentamicin >8 Resistant Levofloxacin >4 Resistant Piperacillin + Tazobactam <=2/4 Sensitive1 Tetracycline >8 Resistant Tobramycin >8 Resistant Trimethoprim + Sulfamethoxazole >2/38 Resistant 1 This is an appended report. ??These results have been appended to a previously final verified report. Imaging: MR Pelvis With Without Contrast (Order [id number]) Imaging Date: 05/24/2019 Department: [facility] MRI Released By: Hallie Scanlon Authorizing: Patience Toussaint NP Study Result EXAM: MRI PELVIS WITHOUT AND WITH IV CONTRAST LOCATION: [facility] DATE/TIME: 05/24/2019 12:03 PM ?? INDICATION: [...] No amie cortical destructive change or abscess. Assessment: Charlette Brush is a 74 y.o. female with 1. Morbid obesity with BMI of 52. 2. History of necrotizing fasciitis of the left buttock status post debridement at [facility] 10/28/2017. 3. Chronic nonhealing left ischial wound with profuse drainage. No evidence of soft tissue infection. The wound was soiled with feces. Sister convinced she may have undiagnosed celiac disease. 4. Left ischial osteomyelitis. Given the duration of the wound as well as significant drainage, the MRI results, this is most likely osteomyelitis. Cultures with ampicillin susceptible enterococcus andProteus. No MRSA present. 5. Multiple antibiotic allergy including to Cipro, Clinda, penicillin, cephalexin. See HPI for discussion. Patient and sister willing to try her on Unasyn. 6. Drug rash. We discussed continuing Unasyn, versus trial of ertapenem and vancomycin. The patient says that her symptoms are tolerable, and not progressing. Therefore, she is willing to continue the current regimen for another week. Recommendations: -Continue Unasyn, continuous infusion -Continue regular wound cares -Continue weekly labs. Reviewed in care everywhere, CRP is improving I will route this note to Dr. John, to discuss final antibiotic plan and follow-up appointment. Of note, the patient has a wound care appointment on 07/30, and is hoping to coordinate with ID. Mariano Hameed [facility] Office . D LOADER documented in this encounter Miscellaneous Notes Patient Instructions - HE - Mariano Hameed MD - 07/11/2019 10:30 AM THIRD LOADER Continue with the current antibiotics. Labs are showing improvement. Call clinic if rash/itching is getting worse. F/up with Dr. John regarding antibiotic plan D LOADER documented in this encounter Plan of Treatment Upcoming Encounters Date Type Specialty Care Team Description 11/15/2022 Virtual Visit Pharm Haylie Gonzalez, [facility] [address] [facility] [address] [place], [place] [phone] (Wo rk) 11/15/2022 Virtual Visit IM/Peds Yane Barraza MD [address] [place] [address] [address] [place] [phone] (Wo rk) 03/03/2023 Virtual Visit Neurology Erlinda Barber MD [address] [facility] [address] [place] [address] (Wo rk) documented as of this encounter Visit Diagnoses Diagnosis Other chronic osteomyelitis, unspecified site (H) documented in this encounter Additional Health Concerns Assessment Noted Time PHQ-9 Depression Total Score: 4 04/12/2019 7:03 AM CDT documented as of this encounter Care Teams Photography Teacher Relationship Specialty Start Date End Date Galdino Valdez MD PCP - General Family Practice 11/29/19 02/12/20 [address] [place], [place] [phone] Jaiden Holcomb PCP - General Internal Medicine 02/13/2010/03 MD Jayesh [address] [place] [address] [address] [place] [id number] Doris Lai MD PCP - General 05/24/19 11/28/[address] [place] [address] [address] [place] [phone] Chastity Montero MD Dermatology 09/23/14 [address] [facility] 98 [place], [place] [address] Johnnie Alcocer MD Surgeon General Surgery 03/23/17 [address] [facility] [address] [place], [place] [address] Lucero Stevenson, Assigned PCP 06/17/18 MD TOÑO LOPEZ [address] [place], [place] [phone] Danni Marcus, RN Personal Advocate & 01/09/1901/17 Liaison (PAL) Fernando, Ea Complex 04/23/19 Svetlana Osman, Pharmacist Pharmacotherapy 04/23/19 [facility] [address] [facility] [address] [place], [place] [phone] Haylie Cheung, Pharmacist Pharmacist 09/11/[address] [place], [place] [phone] Galdino Valdez MD Assigned PCP 11/10/19 05/23/20 [address] [place], [place] [phone] Opal, Assigned Sleep 05/08/20 03/27/21 Kendall Meehan MD Provider [address] [place], [place] [phone] Erlinda Barber MD Assigned Neuroscience 05/08/20 01/26/21 [address] [facility] [address] [facility] [address] [place] [address] Jaiden Holcomb Assigned PCP 05/24/20 MD Jayesh [address] [place] [address] documented as of this encounter
--- OUTSIDE RECORDS SUMMARY | 2022-06-15 13:00 | XMS_ITS | Encounter Summary ---
:1945 Author Organization [place] Address [address] [place] [address] Care Team Providers Name Role Phone Chastity Montero MD Unavailable [phone] Johnnie Alcocer MD Unavailable Lucero Stevenson MD Unavailable [phone] Danni Marcus RN Unavailable Unavailable Mtkinsey, Kyle Complex Unavailable Unavailable Svetlana Osman [facility] Unavailable [phone] Doris Lai MD Primary Care Provider Encounter Details Date Type Department Care Team Description 07/05/2019 Travel Social History Tobacco Use Types Packs/Day [...] Gonzalez, [facility] [address] [facility] [address] [place] [phone] (Wo rk) 11/15/2022 Virtual Visit [place] [address] [place] [address] [place] [address] (Wo rk) 03/03/2023 Virtual Visit Neurology Erlinda Barber MD [address] [place] [address] [address] [place], [place] [address] (Wo rk) documented as of this encounter Visit Diagnoses Not on filedocumented in this encounter Additional Health Concerns Assessment Noted Time PHQ-9 Depression Total Score: 4 04/12/2019 7:03 AM CDT documented as of this encounter Care Teams General Teller Relationship Specialty Start Date End Date Doris Lai MD PCP - General 05/24/19 11/28/19 [address] [facility] [address] [place] [phone] Chastity Montero MD Dermatology 09/23/[address] [place] [address] 98 [place], [place] [address] Johnnie Alcocer MD Surgeon General Surgery 03/23/[address] [place] [address] Lucero Stevenson Assigned PCP 06/17/18 11/09/19 MD TOÑO Littlejohn [place] [address] [place] [address] Danni Marcus, RN Personal Advocate & 01/09/1901/17 Liaison (PAL) Fernando, Ea Complex 04/23/19 Svetlana Osman, Pharmacist Pharmacotherapy 04/23/19 [facility] [address] [facility] [place] [address] documented as of this encounter
--- OUTSIDE RECORDS SUMMARY | 2022-06-15 13:01 | XMS_ITS | Encounter Summary ---
:1945 Author Organization [place] Address [address] [place] [address] Care Team Providers Name Role Phone Chastity Montero MD Unavailable [phone] Johnnie Alcocer MD Unavailable Lucero Stevenson MD Unavailable [phone] Danni Marcus RN Unavailable Unavailable Mtm, Ea Complex Unavailable Unavailable Svetlana Osman [facility] Unavailable [phone] Haylie Cheung [facility] Unavailable [phone] Galdino Valdez MD Unavailable Galdino Valdez MD Primary Care Provider Jaiden Holcomb MD Primary Care Provider [phone] Kendall Joseph MD Unavailable Erlinda Barber MD Unavailable Jaiden Holcomb MD Unavailable [phone] Doris Lai MD Primary Care Provider Encounter Details Date Type Department Care Team Description 06/20/2019 Ambulatory - [facility] [place], Other chr [facility] Reggie, [facility] osteomyelitis, Pharmacy unspecified site (H) [address] [place] [address] Social History Tobacco Use Types Packs/Day Years [...] 05/03/2021 organizations such as worship groups, unions, fraternal or athletic groups, or [...] Visit Pharm Haylie Gonzalez, [facility] [address] [facility] [place] [address] (Wo rk) 11/15/2022 Virtual Visit [place] [address] [place] [address] [place] [address] (Wo rk) 03/03/2023 Virtual Visit Neurology Erlinda Barber MD 420 [facility] 295 [place], [place] [address] (Wo rk) documented as of this encounter Visit Diagnoses Diagnosis Other chronic osteomyelitis, unspecified site (H) documented in this encounter Additional Health Concerns Assessment Noted Time PHQ-9 Depression Total Score: 4 04/12/2019 7:03 AM CDT documented as of this encounter Care Teams Performance Reporter Relationship Specialty Start Date End Date Galdino Valdez MD PCP - General Family Practice 11/29/19 02/12/20 [address] [place] [place], [place] [phone] Jaiden Holcomb PCP - General Internal Medicine 02/13/2010/03 MD Jayesh [address] [facility] [address] [place], [place] [phone] Doris Lai MD PCP - General 05/24/19 11/28/[address] [facility] [address] [place] [phone] Chastity Montero MD Dermatology 09/23/[address] [place] [address] 98 [place], [place] [phone] Johnnie Alcocer MD Surgeon General Surgery 03/23/[address] [place], [place] [phone] Lucero Stevenson, Assigned PCP 06/17/18 MD TOÑO LOPEZ [address] [place] [phone] Danni Marcus, CHANDLER Personal Advocate & 01/09/1901/17 Liaison (PAL) Mtkinsey, Ea Complex 04/23/19 Svetlana Osman, Pharmacist Pharmacotherapy 04/23/19 [facility] [address] [place] [address] Haylie Cheung, Pharmacist Pharmacist 09/11/19 [facility] [address] [place] [address] Galdino Valdez MD Assigned PCP 11/10/19 05/23/20 [address] [place], [place] [phone] Opal, Assigned Sleep 05/08/20 03/27/21 Kendall Meehan MD Provider [address] [place] [address] Erlinda Barber MD Assigned Neuroscience 05/08/20 01/26/21 [address] [facility] [address] [place] [address] Jaiden Holcomb Assigned PCP 05/24/20 MD Jayesh 909 [place] [address] documented as of this encounter
--- OUTSIDE RECORDS SUMMARY | 2022-06-15 13:01 | XMS_ITS | Encounter Summary ---
:1945 Author Organization [place] Address [facility]0 [place] [address] Care Team Providers Name Role Phone Chastity Montero MD Unavailable [phone] Johnnie Alcocer MD Unavailable Lucero Stevenson MD Unavailable [phone] Danni Marcus RN Unavailable Unavailable Mtm, Ea Complex Unavailable Unavailable Svetlana Osman [facility] Unavailable [phone] Doris Lai MD Primary Care Provider Encounter Details Date Type Department Care Team Description 06/27/2019 Hospital Encounter [facility] Maribell John, [facility] [address] [facility] INFECTIOUS [place], [place] [facility] [address] [place] [address] [place], [place] [address] (Wo rk) Social History [...] nystatin (MYCOSTATIN) Apply topically 0 8 09/11/2019 [id number] UNIT/GM external daily as needed cream nystatin (NYSTOP) [id number] APPLY TOPICALLY TO 60 g 0 02/201909/11/2019 [...] Visit Haylie Wakefield, [facility] [address] [address] [place], [place] [phone] (Wo rk) 11/15/2022 Virtual Visit IM/Peds Yane Barraza MD [address] [facility] [place] [id number] (Wo rk) 03/03/2023 Virtual Visit Neurology Erlinda Barber MD [address] [facility] [address] [place], [place] [address] (Wo rk) documented as of this encounter Visit Diagnoses Not on filedocumented in this encounter Additional Health Concerns Assessment Noted Time PHQ-9 Depression Total Score: 4 04/12/2019 7:03 AM CDT documented as of this encounter Care Teams Slab Lifting Engineer Relationship Specialty Start Date End Date Doris Lai MD PCP - General 05/24/19 11/28/19 [address] [facility] [place] [id number] Chastity Montero MD Dermatology 09/23/14 420 [facility] 98 [place], [place] [address] Johnnie Alcocer MD Surgeon General Surgery 03/23/17 [address] [facility] [address] [place], [place] [address] Lucero Stevenson Assigned PCP 06/17/18 11/09/19 MD Annetta [facility] 8675 [place], [place] [phone] Danni Marcus, CHANDLER Personal Advocate & 01/09/1901/17 Liaison (PAL) Fernando, Kyle Complex 04/23/19 Svetlana Osman, Pharmacist Pharmacotherapy 04/23/19 [facility] [address] [facility] [place] [id number] documented as of this encounter
--- OUTSIDE RECORDS SUMMARY | 2022-06-15 13:01 | XMS_ITS | Encounter Summary ---
:1945 Author Organization [place] Address [address] [place] [address] Care Team Providers Name Role Phone Chastity Montero MD Unavailable [phone] Johnnie Alcocer MD Unavailable Lucero Stevenson MD Unavailable [phone] Danni Marcus RN Unavailable Unavailable MtKyle euceda Complex Unavailable Unavailable Svetlana Osman [facility] Unavailable [phone] Doris Lai MD Primary Care Provider Reason for Visit Reason Onset Date Comments INR RESULTS 06/19/2019 Encounter Details Date Type Department Care Team Description 06/19/2019 [facility] Doris Agarwal MD INR RESULTS [place] [address] [facility] 3305 [facility] [place] [address] [address] [place] [address] [phone] Social History Tobacco Use Types Packs/Day Years [...] this encounter Miscellaneous Notes Telephone Encounter - Kristine Eastman RN - 06/19/2019 12:47 PM [employer]AIL [employer] PROFESSIONAL ANTICOAGULATION MANAGEMENT Patient Name: Charlette Brush Date: 06/19/2019 ASSESSMENT /SUBJECTIVE: Today's INR result of 1.8 is subtherapeutic. Goal INR of 2.0-3.0 ??? Warfarin dose taken: Warfarin taken as previously instructed ??? Diet: No new diet changes affecting INR ??? Medication changes/ interactions: Concurrent use of AMPICILLIN and WARFARIN may result in an increased risk of bleeding. ??? Previous INR: Subtherapeutic ??? S/S of bleeding or thromboembolism: No ??? New injury or illness: Yes PICC placed yesterday and starting Unasyn today or tomorrow. Pt has Osteomyelitis ??? Upcoming surgery, procedure or cardioversion: No ??? Additional findings: none PLAN: Spoke with CHANDLER Stevens [facility] regarding INR result and instructed: Warfarin Dosing Instructions: 13mg today and 10mg Wed Instructed patient to follow up no later than: 06/21/19 Education provided: Yes: Discussed Unasyn increasing bleed risk Jana ARTEAGA verbalizes understanding and agrees to warfarin dosing plan. Instructed to call the Anticoagulation Clinic for any changes, questions or concerns. (#[phone]) OBJECTIVE: INR Date Value Ref Range Status 06/19/2019 1.8 Final Anticoagulation Summary As of 06/19/2019 INR goal: 2.0-3.0 TTR: 78.7 % (1 y) INR used for dosin.8! 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 [Z79.01] Anticoagulation Episode Summary INR check location: Preferred lab: EXTERNAL LAB Send INR reminders to: ZHEN CORONA Comments: 3mg & 10mg tabs - devaughn dose / Interim Home Care qod - Kana [phone] / APPT CARD ONLY Anticoagulation Care Providers Provider Role Specialty Phone number Lucero Stevenson MD Internal Medicine [phone] [place] PARTS PROFESSIONAL documented in this encounter Plan of Treatment Upcoming Encounters Date Type Specialty Care Team Description 11/15/2022 Virtual Visit Pharm D Haylie Cheung, [facility] [address] [place] [address] [place] [address] (Wo rk) 11/15/2022 Virtual Visit [place] [address] [place] [address] [place] [address] (Wo rk) 03/03/2023 Virtual Visit Neurology Erlinda Barber MD 420 [facility] 295 [place] [address] (Wo rk) documented as of this encounter Procedures Procedure Name Priority Date/Time Associated Diagnosis Comme nts INR Routine 06/19/2019 Results for thi s procedure are in the resu lts section. 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 t herapy documented in this encounter Additional Health Concerns Assessment Noted Time PHQ-9 Depression Total Score: 4 04/12/2019 7:03 AM CDT documented as of this encounter Care Teams Programs Manager Relationship Specialty Start Date End Date Doris Lai MD PCP - General 05/24/19 11/28/19 [address] [facility] [address] [place] [id number] Chastity Montero MD Dermatology 09/23/14 420 [facility] 98 [place], [place] [address] Johnnie Alcocer MD Surgeon General Surgery 03/23/[address] [place], [place] [phone] Lucero Stevenson Assigned PCP 06/17/18 11/09/19 MD TOÑO Littlejohn [place] 8675 [place], [place] [phone] Danni Marcus, CHANDLER Personal Advocate & 01/09/1901/17 Liaison (PAL) Fernando, Kyle Complex 04/23/19 Svetlana Osman, Pharmacist Pharmacotherapy 04/23/19 [facility] [address] [facility] [address] [place] [phone] documented as of this encounter
--- OUTSIDE RECORDS SUMMARY | 2022-06-15 13:01 | XMS_ITS | Encounter Summary ---
:1945 Author Organization [place] Address [address] [place] [address] Care Team Providers Name Role Phone Chastity Montero MD Unavailable [phone] Johnnie Alcocer MD Unavailable Lucero Stevenson MD Unavailable Danni Marcus RN Unavailable Unavailable Mtm, Ea Complex Unavailable Unavailable Svetlana Osman [facility] Unavailable [phone] Haylie Cheung [facility] Unavailable [phone] Galdino Valdez MD Unavailable Galdino Valdez MD Primary Care Provider Jaiden Holcomb MD Primary Care Provider [phone] Kendall Joseph MD Unavailable Erlinda Barber MD Unavailable Jaiden Holcomb MD Unavailable [phone] Doris Lai MD Primary Care Provider Encounter Details Date Type Department Care Team Description 06/18/2019 Office Visit - [facility] [address] [address] Social History Tobacco Use Types [...] documented as of this encounter Procedure Notes Tori Dupree - 06/18/2019 2:30 PM CST Procedures PICC Line Insertion Procedure Note Pt. Name: Charlette Brush Procedure: Insertion of a single Lumen 4 fr Bard SOLO (valved) Power PICC, Lot number [id number] Indications: antibiotics Contraindications : none Procedure Details Patient identified with 2 identifiers and Time Out conducted. . Central line insertion bundle followed: hand hygeine performed prior to procedure, site cleansed with cholraprep, hat, mask, sterile gloves,sterile gown worn, patient draped with maximum barrier head to toe drape, sterile field maintained. The vein was assessed and found to be compressible and of adequate size. 2 ml 1% Lidocaine administered sq to the insertion site. A 4 Fr PICC was inserted into the cephalic vein of the right arm with ultrasound guidance. 1 attempt(s) required to access vein. Catheter threaded without difficulty. Good blood return noted. Modified Seldinger Technique used for insertion. The 8 sharps that are included in the PICC insertion kit were accounted for and disposed of in the sharps container prior to breakdown of the sterile field. Catheter secured with Statlock, biopatch and Tegaderm dressing applied. Findings: Total catheter length 50 cm, with 2 cm exposed. Mid upper arm circumference is 55 cm. Catheter was flushed with 10 cc NS. Patient tolerated procedure well. Tip placement verified by xray. Xray read by Dr. Taylor . Tip placement in the low SVC. CLABSI prevention brochure left at bedside. Patient's primary RN notified PICC is ready for use. Comments: Tori Dupree, RN,BSN [facility] Vascular Access B NURSING TECH documented in this encounter Plan of Treatment Upcoming Encounters Date Type Specialty Care Team Description 11/15/2022 Virtual Visit Pharm Haylie Gonzalez, [facility] [address] [place] [address] (Wo winter) 11/15/2022 Virtual Visit [place] [address] [place] [address] [place] [address] (Wo winter) 03/03/2023 Virtual Visit Neurology Erlinda Barber MD 420 [facility] 295 [place] [address] (Lena max) documented as of this encounter Visit Diagnoses Diagnosis Osteomyelitis (H) Unspecified osteomyelitis, site unspecif ied documented in this encounter Additional Health Concerns Assessment Noted Time PHQ-9 Depression Total Score: 4 04/12/2019 7:03 AM CDT documented as of this encounter Care Teams [employer] Registrar Relationship Specialty Start Date End Date Galdino Valdez MD PCP - General Family Practice 11/29/19 02/12/20 [address] [place], [place] [phone] Jaiden Holcomb PCP - General Internal Medicine 02/13/2010/03 MD Jayesh [address] [facility] [address] [place], [place] [phone] Doris Lai MD PCP - General 05/24/19 11/28/[address] [facility] [address] [place] [phone] Chastity Montero MD Dermatology 09/23/14 [address] [facility] 98 [place] [address] Johnnie Alcocer MD Surgeon General Surgery 03/23/17 [address] [facility] 300 [place], [place] [phone] Lucero Stevenson, Assigned PCP 06/17/18 MD TOÑO LOPEZ 8675 [place], [place] [phone] Danni Marcus, CHANDLER Personal Advocate & 01/09/1901/17 Liaison (PAL) Fernando, Ea Complex 04/23/19 Svetlana Osman, Pharmacist Pharmacotherapy 04/23/19 [facility] [address] [place] [address] Haylie Cheung, Pharmacist Pharmacist 09/11/19 [facility] [address] [place], [place] [phone] Galdino Valdez MD Assigned PCP 11/10/19 05/23/20 [address] [place], [place] [phone] Opal, Assigned Sleep 05/08/20 03/27/21 Kendall Meehan MD Provider [address] [place] [address] [address] [place] [address] Erlinda Barber MD Assigned Neuroscience 05/08/20 01/26/21 420 [facility] 295 Provider [place], [place] [phone] Jaiden Holcomb Assigned PCP 05/24/20 MD Jayesh 909 [place], [place] [phone] documented as of this encounter
--- OUTSIDE RECORDS SUMMARY | 2022-06-15 13:01 | XMS_ITS | Encounter Summary ---
:1945 Author Organization [place] Address [address] [place] [address] Care Team Providers Name Role Phone Chastity Montero MD Unavailable [phone] Johnnie Alcocer MD Unavailable Lucero Stevenson MD Unavailable [phone] Danni Marcus RN Unavailable Unavailable Mtm, Ea Complex Unavailable Unavailable Svetlana Osman [facility] Unavailable [phone] Doris Lai MD Primary Care Provider Encounter Details Date Type Department Care Team Description 06/24/2019 Orders Only [facility] Clin ic Ruth John MD 6th Floor, Clinic 6B [facility] INFECTIOUS [place] [facility] [address] [place] [address] 88 [place] [address] [place] [address] [place] [phone] Social History Tobacco Use Types Packs/Day Years [...] Haylie Gonzalez, [facility] [address] [place] [address] (Wo rk) 11/15/2022 Virtual Visit IM/aYne Mathias MD [address] [place] [address] [place] [address] (Wo rk) 03/03/2023 Virtual Visit Neurology Erlinda Barber MD [address] [place] [address] 295 [place] [address] (Wo rk) documented as of this encounter Visit Diagnoses Not on filedocumented in this encounter Additional Health Concerns Assessment Noted Time PHQ-9 Depression Total Score: 4 04/12/2019 7:03 AM CDT documented as of this encounter Care Teams Laborer Rags Relationship Specialty Start Date End Date Doris Lai MD PCP - General 05/24/19 11/28/19 [address] [facility] [address] Chastity Montero MD Dermatology 09/23/14 420 [facility] 98 [place], [place] [phone] Johnnie Alcocer MD Surgeon General Surgery 03/23/[address] [place] [address] Lucero Stevenson Assigned PCP 06/17/18 11/09/19 MD TOÑO Littlejohn [place] [address] [place] [address] Danni Marcus, CHANDLER Personal Advocate & 01/09/1901/17 Liaison (PAL) Fernando, Ea Complex 04/23/19 Svetlana Osman, Pharmacist Pharmacotherapy 04/23/19 [facility] [address] [facility] [address] [place] [phone] documented as of this encounter
--- OUTSIDE RECORDS SUMMARY | 2022-06-15 13:01 | XMS_ITS | Encounter Summary ---
:1945 Author Organization [place] Address [address] [place] [address] Care Team Providers Name Role Phone Chastity Montero MD Unavailable [phone] Johnnie Alcocer MD Unavailable Lucero Stevenson MD Unavailable Danni Marcus RN Unavailable Unavailable Mtm, Ea Complex Unavailable Unavailable Svetlana Osman [facility] Unavailable [phone] Haylie Cheung [facility] Unavailable [phone] Galdino Valdez MD Unavailable Galdino Valdez MD Primary Care Provider Jaiden Holcomb MD Primary Care Provider Kendall Joseph MD Unavailable Erlinda Barber MD Unavailable Jaiden Holcomb MD Unavailable [phone] Doris Lai MD Primary Care Provider Reason for Visit Reason Comments Orders Encounter Details Date Type Department Care Team Description 06/19/2019 [facility] Kristen John [facility] [place] MD Ruth [address] [facility] [address] [facility] [address] [address] [facility] [phone] [place] [address] (Wo rk) Social History Tobacco Use Types [...] Telephone Encounter - Ethel Ward CMA - 06/20/2019 4:[address] John, this would not be our call. Pt woud have to be admitted for three days before being admitted to a home facility for treatment under medicare guidelines. L MAINFRAME DEVELOPER Telephone Encounter - Ethel Ward CMA - 06/20/2019 3:58 PM CST Interim Home care nurse Hilda called with concerns that pt's home health care will be a difficult treatment adding on homeinfusions. Home health is already occasionally going to visits twice because wound care is not staying on. Feels if there is a possibility pt should be admitted to a facility forthe duration of treatment. Would this be the decision advised by pt's wound care provider and if the pt agrees to be admitted. Hilda is calling to ask pt opinion of the idea after we hung up. Hilda [phone] Treatment with [facility] L MAINFRAME DEVELOPER Addendum Note - Araceli Major RN - 06/19/2019 4:27 PM CST Addendum Note by Araceli Major RN at 06/19/2019 4:27 PM Author: Araceli Major RN Service: -- Author Type: Registered Nurse Filed: 06/19/2019 4:27 PM Encounter Date: 06/19/2019 Status: Signed Leno Sewer: Araceli Major RN (Registered Nurse) Addended by: ARACELI MAJOR on: 06/19/2019 04:27 PM Modules accepted: Orders L MAINFRAME DEVELOPER Telephone Encounter - Ethel Ward CMA - 06/19/2019 3:32 PM CST Spoke to Belen from [facility] infusion. Schedule pt for 11:30am infusion of first dose 06/21/19.Nurse was nice to inform she would need a one time order for unasyn because they will not be placingthe pump on for pt's first dose. Informed Michelle for [facility] to have Pharmacist call outpatient and have a pharmacist to Pharmacist verbal or fax to confirm what the one time dose will be. Pt informed of appointment 06/21/19 @11:30 [facility] infusion L MAINFRAME DEVELOPER Telephone Encounter - Historical Provider - 06/19/2019 2:59 PM CST Dora Martinez from home infusion called. Pt is on IV ABX, & needs a therapy plan made, please call them back @ [phone] L MAINFRAME DEVELOPER documented in this encounter Plan of Treatment Upcoming Encounters Date Type Specialty Care Team Description 11/15/2022 Virtual Visit Pharm Haylie Gonzalez, [facility] [address] [facility] [address] [place], [place] [phone] (Wo rk) 11/15/2022 Virtual Visit IM/Peds Yane Barraza MD [address] [place] [address] [address] [place] [phone] (Wo rk) 03/03/2023 Virtual Visit Neurology Erlinda Barber MD [address] [place] [address] 295 [place] [address] (Wo rk) documented as of this encounter Visit Diagnoses Diagnosis Other chronic osteomyelitis, unspecified site (H) documented in this encounter Additional Health Concerns Assessment Noted Time PHQ-9 Depression Total Score: 4 04/12/2019 7:03 AM CDT documented as of this encounter Care Teams Metal Washing Machine Operator Relationship Specialty Start Date End Date Galdino Valdez MD PCP - General Family Practice 11/29/19 02/12/20 [address] [place], [place] [phone] Jaiden Holcomb PCP - General Internal Medicine 02/13/2010/03 MD Jayesh [address] [place] [address] [place] [phone] Doris Lai MD PCP - General 05/24/19 11/28/[address] [place] [address] [address] [place] [phone] Chastity Montero MD Dermatology 09/23/14 420 [facility] 98 [place], [place] [address] Johnnie Alcocer MD Surgeon General Surgery 03/23/17 [address] [place] [address] Lucero Stevenson, Assigned PCP 06/17/18 MD TOÑO LOPEZ 8675 [place], [place] [phone] Danni Marcus, RN Personal Advocate & 01/09/1901/17 Liaison (PAL) Fernando, Ea Complex 04/23/19 Svetlana Osman, Pharmacist Pharmacotherapy 04/23/19 [facility] [address] [facility] [address] [place], [place] [phone] Haylie Cheung, Pharmacist Pharmacist 09/11/19 [facility] [address] [place] [address] [place], [place] [phone] Galdino Valdez MD Assigned PCP 11/10/19 05/23/20 [address] [place], [place] [phone] Opal, Assigned Sleep 05/08/20 03/27/21 Kendall Meehan MD Provider [address] [place], [place] [phone] Erlinda Barber MD Assigned Neuroscience 05/08/20 01/26/21 420 [facility] 295 Provider [place], [place] [phone] Jaiden Holcomb Assigned PCP 05/24/20 MD Jayesh 909 [place] [address] documented as of this encounter
--- OUTSIDE RECORDS SUMMARY | 2022-06-15 13:01 | XMS_ITS | Encounter Summary ---
:1945 Author Organization [place] Address [address] [facility] [place] [address] Care Team Providers Name Role Phone Chastity Montero MD Unavailable [phone] Johnnie Alcocer MD Unavailable Lucero Stevenson MD Unavailable Danni Marcus RN Unavailable Unavailable Mtm, Ea Complex Unavailable Unavailable Svetlana Osman [facility] Unavailable [phone] Doris Lai MD Primary Care Provider Encounter Details Date Type Department Care Team Description 06/19/2019 Home Infusion [facility] Reva Galvez, [facility] [address] [facility] [address] [place], [place] [phone] 0[address] [facility] [phone] [place] [address] (Wo rk) Social History Tobacco [...] this encounter Progress Notes Amparo Mijares - 06/19/2019 11:59 PM CST This is a recent snapshot of the patient's [facility] medical record. For current drug dose and complete information and questions, call [phone] or In [employer], [employer] homeTapClicksusion ([id number]) CSN Number: [id number] OR INFORMATION DEVELOPER documented in this encounter Plan of Treatment Upcoming Encounters Date Type Specialty Care Team Description 11/15/2022 Virtual Visit Pharm D Haylie Cheung, [facility] 14[address] [facility] [place] [address] (Wo winter) 11/15/2022 Virtual Visit [place] [address] [place] [address] [place] [phone] (Wo rk) 03/03/2023 Virtual Visit Neurology Erlinda Barber MD 420 [facility] 295 [place] [address] (Wo rk) documented as of this encounter Visit Diagnoses Not on filedocumented in this encounter Additional Health Concerns Assessment Noted Time PHQ-9 Depression Total Score: 4 04/12/2019 7:03 AM CDT documented as of this encounter Care Teams Associate Professor Of Art Relationship Specialty Start Date End Date Doris Lai MD PCP - General 05/24/19 11/28/[address] [place] [address] [address] [place] [phone] Chastity Montero MD Dermatology 09/23/14 420 [facility] 98 [place], [place] [address] Johnnie Alcocer MD Surgeon General Surgery 03/23/17 [address] [facility] 300 [place], [place] [phone] Lucero Stevenson Assigned PCP 06/17/18 11/09/19 MD Annetta [facility] [address] [place] [address] Danni Marcus, CHANDLER Personal Advocate & 01/09/1901/17 Liaison (PAL) Fernando, Ea Complex 04/23/19 Svetlana Osman, Pharmacist Pharmacotherapy 04/23/[address] [place] [phone] documented as of this encounter
--- OUTSIDE RECORDS SUMMARY | 2022-06-15 13:01 | XMS_ITS | Encounter Summary ---
:1945 Author Organization [place] Address [facility] [place] [address] Care Team Providers Name Role Phone Chastity Montero MD Unavailable [phone] Johnnie Alcocer MD Unavailable Lucero Stevenson MD Unavailable [phone] Danni Marcus RN Unavailable Unavailable Mtm, Ea Complex Unavailable Unavailable Svetlana Osman [facility] Unavailable [phone] Doris Lai MD Primary Care Provider Reason for Visit Reason Comments Blood Draw picc labs, dressing change Encounter Details Date Type Department Care Team Description 06/28/2019 Orders Only [facility] Ruth John He [facility] (Primary Dx) [facility] INFECTIOUS [facility] Medical Ctr [facility] [place] [address] [address] [place] [address] [place], [place] [phone] (Wo rk) [address] [phone] Social History Tobacco Use Types Packs/Day Years [...] 05/03/2021 organizations such as yazdanism groups, unions, [place]over[place] or athletic groups, or school groups? How [...] as of this encounter Progress Notes Hoda Quintero RN - 06/28/2019 10:00 AM CST Infusion Nursing Note: Charlette Brush presents today for picc labs, dressing change to picc. Associate Professor Of Biostatistics present during visit today: Not Applicable. Note: picc site is clean, dry, no swelling. Couple small bruises, raised scattered rash under securement device adhesive. Intravenous Access: Lab draw site L AC, Needle type butterfly, Gauge 23. Labs drawn without difficulty. PICC. Treatment Conditions: NA Post Lab Assessment: Patient tolerated blood collection Site patent and intact, free from redness, edema or discomfort. No evidence of extravasations. Access remains for continuous home infusion use. Discharge Plan: Patient and/or family verbalized understanding of instructions and all questions answered. Patient discharged in stable condition accompanied by: self and friend. Patient to see provider today: No Departure Mode: Ambulatory with walker. Hoda Quintero, RN, RN M HAND documented in this encounter Plan of Treatment Upcoming Encounters Date Type Specialty Care Team Description 11/15/2022 Virtual Visit Pharm Haylie Gonzalez, [facility] [address] [facility] [place] [address] (Wo rk) 11/15/2022 Virtual Visit IM/Peds Yane Barraza MD [address] [facility] [place] [address] (Wo rk) 03/03/2023 Virtual Visit Neurology Erlinda Barber MD 420 [facility] 295 [place] [address] (Wo rk) documented as of this encounter Procedures Procedure Name Priority Date/Time Associated Comments Diagnosis CBC WITH PLATELETS & Routine 06/28/2019 9:50 AM Health Care Ho me Results for this DIFFERENTIAL STEAM HAND procedure are i n the results section. CRP INFLAMMATION Routine 06/28/2019 9:50 AM Health Intermediate R esults for this STEAM HAND procedure are i n the results section. BASIC METABOLIC PANEL Routine 06/28/2019 9:50 AM Health Care H ome Results for this STEAM HAND procedure are i n the results section. documented in this encounter Results CRP inflammation (06/28/2019 9:50 AM STEAM HAND) P athologist Signature CRP Inflammation 4.2 0.0 - 8.0 06/28/2019 [facility] mg/L 10:52 AM [facility] Specimen Anatomical Collection Method Collection Time Receive d Time (Source) Location / / Volume Laterality Blood specimen 06/28/2019 9:50 AM 019 (specimen) STEAM HAND 10:36 AM STE[facility] Ruth John MD LAB - BLOOD ORDERABLES Performing Organization Address City/State/ZIP Code Phon e Number M [facility] [address] [address] [facility] [address] [place] [phone] (ABNORMAL) Basic metabolic panel (06/28/2019 9:50 AM STEAM [facility]) Analysis Performed At Patho logist Time Signature Sodium 140 133 - 144 06/28/2019 [facility] mmol/L 10:47 AM [facility] Potassium 4.0 3.4 - 5.3 06/28/2019 [facility] mmol/L 10:47 AM [facility] Chloride 108 94 - 109 06/28/2019 [facility] mmol/L 10:47 AM [facility] Carbon Dioxide 28 20 - 32 06/28/2019 [facility] mmol/L 10:52 AM [facility] Anion Gap 4 3 - 14 06/28/2019 [place] mmol/L 10:52 AM [facility] Glucose 78 70 - 99 06/28/2019 [place] mg/dL 10:52 AM [facility] Urea Nitrogen 23 7 - 30 06/28/2019 [place] mg/dL 10:52 AM [facility] Creatinine 0.50 (L) 0.52 - 06/28/2019 [facility] 1.04 mg/dL 10:52 AM [facility] GFR Estimate >90 >60 06/28/2019 [place] mL/min/{1. 10:52 AM [facility] 73_m2} HOSPITAL Comment: Non GFR Calc Starting 07/03/2018, serum creatinine ba sed estimated GFR (eGFR) will be calculated using the Chronic Kidney Dise [facility] Epidemiology Collaboration (CKD-EPI) equation. GFR Estimate If >90 >60 mL/min/{1.73_m2} 06/28/2019 10 :52 AM [facility] Comment: GFR Calc Starting 07/03/2018, serum creatinine ba sed estimated GFR (eGFR) will be calculated using the Chronic Kidney Dise [facility] Epidemiology Collaboration (CKD-EPI) equation. Calcium 8.7 8.5 - 10.1 mg/dL 06/28/2019 10:52 AM [facility] Specimen Anatomical Collection Method Collection Time Receive d Time (Source) Location / / Volume Laterality Blood specimen 06/28/2019 9:50 AM 019 (specimen) STEAM HAND 10:36 AM [facility] Ruth John MD LAB - BLOOD ORDERABLES Performing Organization Address City/State/ZIP Code Phon e Number M [facility] [address] [place] [address] [facility] [address] [phone] CBC with platelets differential (06/28/2019 9:50 AM [facility]) [facility] Method Time Signature WBC 6.2 4.0 - 06/28/2019 [facility] 11.0 10:39 AM [facility] 10e9/L [facility] RBC Count 4.64 3.8 - 5.2 06/28/2019 [facility] 10e12/L 10:39 AM [facility] Hemoglobin 14.3 11.7 - 06/28/2019 [facility] 15.7 g/dL 10:39 AM [facility] Hematocrit 43.4 35.0 - 06/28/2019 [facility] 47.0 % 10:39 AM [facility] MCV 94 78 - 100 06/28/2019 [facility] fl 10:39 AM [facility] MCH 30.8 26.5 - 06/28/2019 [facility] 33.0 pg 10:39 AM [facility] MCHC 32.9 31.5 - 06/28/2019 [facility] 36.5 g/dL 10:39 AM [facility] RDW 13.7 10.0 - 06/28/2019 [facility] 15.0 % 10:39 AM [facility] Platelet Count 234 150 - 450 06/28/2019 [facility] 10e9/L 10:39 AM [facility] Diff Method Automated 06/28/2019 [facility] Method 10:39 AM [facility] % Neutrophils 66.9 % 06/28/2019 [facility] 10:39 AM [facility] % Lymphocytes 20.5 % 06/28/2019 [facility] 10:39 AM [facility] % Monocytes 7.9 % 06/28/2019 [facility] 10:39 AM [facility] % Eosinophils 3.7 % 06/28/2019 [facility] 10:39 AM [facility] % Basophils 0.8 % 06/28/2019 [facility] 10:39 AM [facility] % Immature 0.2 % 06/28/2019 [facility] Granulocytes 10:39 AM [facility] Nucleated RBCs 0 0 /100 06/28/2019 [facility] 10:39 AM [facility] Absolute 4.2 1.6 - 8.3 06/28/2019 [facility] Neutrophil 10e9/L 10:39 AM [facility] Absolute 1.3 0.8 - 5.3 06/28/2019 [facility] Lymphocytes 10e9/L 10:39 AM [facility] Absolute 0.5 0.0 - 1.3 06/28/2019 [facility] Monocytes 10e9/L 10:39 AM [facility] Absolute 0.2 0.0 - 0.7 06/28/2019 [facility] Eosinophils 10e9/L 10:39 AM [facility] Absolute 0.1 0.0 - 0.2 06/28/2019 [place] Basophils 10e9/L 10:39 AM [facility] Abs Immature 0.0 0 - 0.4 06/28/2019 [place] Granulocytes 10e9/L 10:39 AM [facility] Absolute 0.0 06/28/2019 [place] Nucleated RBC 10:39 AM [facility] Specimen Anatomical Collection Method Collection Time Receive d Time (Source) Location / / Volume Laterality Blood specimen 06/28/2019 9:50 AM 019 (specimen) [facility]AM [facility] 10:36 AM [facility] Ruth John MD LAB - BLOOD ORDERABLES Performing Organization Address City/State/ZIP Code Phon e Number [facility] [address] [address] [place], [place] [address] [facility] [address] [place], [place] [address] [facility] [phone] documented in this encounter Visit Diagnoses Diagnosis Health Intermediate - Primary notesas part of the Health [facility] to capture care coordination pl documented in this encounter Additional Health Concerns Assessment Noted Time PHQ-9 Depression Total Score: 4 04/12/2019 7:03 AM CDT documented as of this encounter Care Teams Vessel Slag Worker Relationship Specialty Start Date End Date Doris Lai MD PCP - General 05/24/19 11/28/[address] [facility] [place] [id number] Chastity Montero MD Dermatology 09/23/[address] [place] [address] 98 [place], [place] [address] Johnnie Alcocer MD Surgeon General Surgery 03/23/17 [address] [facility] 300 [place], [place] [address] Lucero Stevenson Assigned PCP 06/17/18 11/09/19 MD TOÑO [facility] [address] [place], [place] [phone] Danni Marcus, RN Personal Advocate & 01/09/1901/17 Liaison (PAL) Fernando, Ea Complex 04/23/19 Svetlana Osman, Pharmacist Pharmacotherapy 04/23/19 [facility] [address] [place] [address] documented as of this encounter
--- OUTSIDE RECORDS SUMMARY | 2022-06-15 13:01 | XMS_ITS | Encounter Summary ---
:1945 Author Organization [employer] Address [address] [place] [address] Care Team Providers Name Role Phone Chastity Montero MD Unavailable [phone] Johnnie Alcocer MD Unavailable Lucero Stevenson MD Unavailable [phone] Danni Marcus RN Unavailable Unavailable Mtm, Ea Complex Unavailable Unavailable Svetlana Osman [facility] Unavailable [phone] Haylie Cheung [facility] Unavailable [phone] Galdino Valdez MD Unavailable Galdino Valdez MD Primary Care Provider Jaiden Holcomb MD Primary Care Provider [phone] Kendall Joseph MD Unavailable Erlinda Barber MD Unavailable Jaiden Holcomb MD Unavailable Doris Lai MD Primary Care Provider Ruth John MD Unavailable Kajal Huggins MD Unavailable Patience Toussaint NP Unavailable Brook Sánchez MD Unavailable Yane Barraza MD Primary Care Provider Osmar Kidd MD Unavailable Erlinda Barber MD Unavailable Yane Barraza MD Primary Care Provider Lenore Alcala MD Unavailable Haylie Cheung [facility] Unavailable [phone] Gaye Patrick RN Unavailable Unavailable Kenya Abernathy APRN SENIOR PROCESS CONTROL TECH Unavailable [phone] Hayley German OD Unavailable [phone] Haylie Cheung [facility] Unavailable [phone] Encounter Details Date Type Department Care Team Description 06/19/2019 Telephone [facility] Doris Agarwal MD [place] [address] [facility] [address] [facility] [place] [address] [address] [place] [address] [phone] Social History Tobacco Use Types Packs/Day Years [...] [facility] 14[address] [facility] [place] [id number] (Wo rk) 11/15/2022 Virtual Visit IM/Peds Yane Barraza MD [address] [place] [address] [place] [phone] (Wo rk) 03/03/2023 Virtual Visit Neurology Erlinda Barber MD 420 [facility] 295 [place], [place] [address] (Wo rk) documented as of this encounter Visit Diagnoses Not on filedocumented in this encounter Additional Health Concerns Assessment Noted Time PHQ-9 Depression Total Score: 4 04/12/2019 7:03 AM CDT documented as of this encounter Care Teams Osha Inspector Relationship Specialty Start Date End Date Galdino Valdez MD PCP - General Family Practice 11/29/19 02/12/20 [address] [place], [place] [phone] Jaiden Holcomb PCP - General Internal Medicine 02/13/2010/03 MD Jayesh [address] [place] [address] [place] [phone] Doris Lai MD PCP - General 05/24/19 11/28/[address] [place] [address] [place] [phone] Yane Barraza MD PCP - General Internal Medicine 10/04/21 12/07/[address] [place] [address] [place] [phone] Yane Barraza MD PCP - General Internal Medicine 12/08/[address] [place] [address] [address] [place] [phone] Chastity Montero MD Dermatology 09/23/14 MD [address] [facility] [address] [place], [place] [address] Johnnie Alcocer MD Surgeon General Surgery 03/23/[address] [place] [address] Lucero [place], Assigned PCP 06/17/18 MD TOÑO [place] 8675 [place] [address] Danni Marcus, CHANDLER Personal Advocate & 01/09/1901/17 Liaison (PAL) Fernando, Ea Complex 04/23/19 Svetlana Osman, Pharmacist Pharmacotherapy 04/23/[address] [place] [phone] Haylie Cheung, Pharmacist Pharmacist 09/11/[address] [place] [address] Galidno Valdez MD Assigned PCP 11/10/19 05/23/20 [address] [place], [place] [phone] Opal, Assigned Sleep 05/08/20 03/27/21 Kendall Meehan MD Provider [address] [place] [address] [place] [address] Erlinda Barber MD Assigned Neuroscience 05/08/20 01/26/21 [address] [facility] [facility] [address] [place] [address] Jaiden [place] Assigned PCP 05/24/20 MD Jayesh 909 [place] [address] Ruth John MD Assigned Infectious 01/29/21 07/03/21 [facility] INFECTIOUS Disease Provider DIS[facility]ASE [facility] [address] [place] [address] Kajal Huggins MD Assigned Neuroscience 01/29/21 10/23/21 2945 [facility] Provider [address] [place] [address] Patience Toussaint NP Assigned Surgical 01/29/21 02/11/22 2945 [facility] Provider [address] [place] [address] Brook Sánchez MD Assigned Infectious 07/04/21 9[address] [facility] [place] [address] Osmar Kidd MD Assigned Sleep 09/26/[address] [place] [address] Erlinda Barber MD Assigned Neuroscience 10/24/21 [address] [facility] [address] [facility] [address] Provider [place], [place] [address] Lenore Alcala MD Assigned Heart and 12/18/21 01/21/[address] [place] Vascular Provider [address] [place] [address] Haylie Cheung, Assigned MTM 01/08/22 [facility] Pharmacist [address] [facility] [address] [place] [phone] Gaye [place], RN Personal Advocate & 7/5/22 Liaison (PAL) Kenya Abernathy APRN Assigned Heart and 01/22/22 SENIOR PROCESS CONTROL TECH Vascular Provider [address] [place] [address] Hayley German, Assigned Surgical 02/12/22 OD Provider [address] [facility] [place] [phone] Haylie Cheung, Assigned [place] 04/13/22 [facility] Pharmacist [address] [facility] [address] [place] [phone] documented as of this encounter
--- OUTSIDE RECORDS SUMMARY | 2022-06-15 13:01 | XMS_ITS | Encounter Summary ---
:1945 Author Organization [place] Address [address] [facility] [place] [address] Care Team Providers Name Role Phone Chastity Montero MD Unavailable [phone] Johnnie Alcocer MD Unavailable Lucero [place] MD Unavailable [phone] Danni Marcus RN Unavailable Unavailable Mtm, Ea Complex Unavailable Unavailable Svetlana Osman [facility] Unavailable [phone] Doris Lai MD Primary Care Provider Encounter Details Date Type Department Care Team Description 06/21/2019 Home Infusion [facility] Reva Galvez, [facility] [address] [facility] [address] [place], [place] [phone] [facility] [phone] [place] [address] (Wo rk) Social History Tobacco [...] this encounter Progress Notes Yelena Meier - 06/21/2019 11:59 PM CST This is a recent snapshot of the patient's [facility] medical record. For current drug dose and complete information and questions, call [phone] or In [email or web address] homeXCast Labsusion ([id number]) CSN Number: [id number] documented in this encounter Plan of Treatment Upcoming Encounters Date Type Specialty Care Team Description 11/15/2022 Virtual Visit Pharm D Haylie Cheung, [facility] 14[address] [facility] [place] [address] (Wo winter) 11/15/2022 Virtual [place] [address] [place] [address] [place] [phone] (Wo rk) 03/03/2023 Virtual Visit Neurology Erlinda Barber MD [address] [place] 295 [place] [address] (Wo rk) documented as of this encounter Visit Diagnoses Not on filedocumented in this encounter Additional Health Concerns Assessment Noted Time PHQ-9 Depression Total Score: 4 04/12/2019 7:03 AM CDT documented as of this encounter Care Teams Dry Color Tester Relationship Specialty Start Date End Date Doris Lai MD PCP - General 05/24/19 11/28/19 [address] [facility] [address] [place] [phone] Chastity Montero MD Dermatology 09/23/14 [address] [facility] 98 [place], [place] [address] Johnnie Alcocer MD Surgeon General Surgery 03/23/17 [address] [facility] [address] [place] [address] Lucero [place] Assigned PCP 06/17/18 11/09/19 MD Annetta [facility] [address] [place] [address] Danni Marcus, CHANDLER Personal Advocate & 01/09/1901/17 Liaison (PAL) Fernando, Ea Complex 04/23/19 Svetlana Osman, Pharmacist Pharmacotherapy 04/23/[address] [place] [phone] documented as of this encounter
--- OUTSIDE RECORDS SUMMARY | 2022-06-15 13:01 | XMS_ITS | Encounter Summary ---
:1945 Author Organization [place] Address [address] [facility] [place] [address] Care Team Providers Name Role Phone Chastity Montero MD Unavailable [phone] Johnnie Alcocer MD Unavailable Lucero [place] MD Unavailable [phone] Danni Marcus RN Unavailable Unavailable Mtm, Ea Complex Unavailable Unavailable Svetlana Osman [facility] Unavailable [phone] Doris Lai MD Primary Care Provider Encounter Details Date Type Department Care Team Description 06/23/2019 Home Infusion [facility] Reva Galvez, [facility] [address] [facility] [address] [place], [place] [phone] 201 [facility] [phone] [place] [address] (Wo rk) Social History Tobacco [...] this encounter Progress Notes Yelena Meier - 06/23/2019 11:59 PM CST This is a recent snapshot of the patient's [facility] medical record. For current drug dose and complete information and questions, call [phone] or In [employer] homeAvalon Clonesusion ([id number]) CSN Number: [id number] [employer]NAL BANKING REPRESENTATIVE documented in this encounter Plan of Treatment Upcoming Encounters Date Type Specialty Care Team Description 11/15/2022 Virtual Visit Pharm D Haylie Cheung, [facility] 14[address] [facility] [place] [address] (Wo winter) 11/15/2022 Virtual [place] [address] [place] [address] [place] [phone] (Wo rk) 03/03/2023 Virtual Visit Neurology Erlinda Barber MD 420 [facility] 295 [place] [address] (Wo rk) documented as of this encounter Visit Diagnoses Not on filedocumented in this encounter Additional Health Concerns Assessment Noted Time PHQ-9 Depression Total Score: 4 04/12/2019 7:03 AM CDT documented as of this encounter Care Teams Program Medical Director Relationship Specialty Start Date End Date Doris Lai MD PCP - General 05/24/19 11/28/19 [address] [facility] [address] [place] [phone] Chastity Montero MD Dermatology 09/23/14 420 [facility] 98 [place], [place] [address] Johnnie Alcocer MD Surgeon General Surgery 03/23/17 [address] [facility] 300 [place] [address] Lucero [place] Assigned PCP 06/17/18 11/09/19 MD Annetta [facility] [address] [place] [address] Danni Marcus, CHANDLER Personal Advocate & 01/09/1901/17 Liaison (PAL) Fernando, Ea Complex 04/23/19 Svetlana Osman, Pharmacist Pharmacotherapy 04/23/[address] [place] [phone] documented as of this encounter
--- OUTSIDE RECORDS SUMMARY | 2022-06-15 13:01 | XMS_ITS | Encounter Summary ---
:1945 Author Organization [place] Address [address] [place] [address] Care Team Providers Name Role Phone Chastity Montero MD Unavailable [phone] Johnnie Alcocer MD Unavailable Lucero Stevenson MD Unavailable [phone] Danni Marcus RN Unavailable Unavailable MtKyle euceda Complex Unavailable Unavailable Svetlana Osman [facility] Unavailable [phone] Doris Lai MD Primary Care Provider Reason for Visit Reason Onset Date Comments INR RESULTS 06/25/2019 Encounter Details Date Type Department Care Team Description 06/25/2019 [facility] Doris Agarwal MD INR RESULTS Yarelis [address] [facility] 3[address] [facility] [place] [address] [address] [place] [address] [phone] Social History Tobacco Use Types Packs/Day Years [...] Telephone Encounter - Kristine Eastman RN - 06/25/2019 2:41 PM RAMP AGENT ANTICOAGULATION MANAGEMENT Patient Name: Charlette Brush Date: 06/25/2019 ASSESSMENT /SUBJECTIVE: Today's INR result of 2.4 is therapeutic. Goal INR of 2.0-3.0 ??? Warfarin dose taken: Warfarin taken as previously instructed ??? Diet: No new diet changes affecting INR ??? Medication changes/ interactions: Unasyn daily via PICC ??? Previous INR: Therapeutic ??? S/S of bleeding or thromboembolism: No ??? New injury or illness: Yes: Still treating Osteomylelitis has Picc dressing changes and labs Monday ??? Upcoming surgery, procedure or cardioversion: No ??? Additional findings: none PLAN: Spoke with Michelle ARTEAGA regarding INR result and instructed: Warfarin Dosing Instructions: Continue your current warfarin dose Instructed patient to follow up no later than: 1 week Education provided: Alesha Martinez verbalizes understanding and agrees to warfarin dosing plan. Instructed to call the Anticoagulation Clinic for any changes, questions or concerns. 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 [address] [facility] [place] [address] (Wo winter) 11/15/2022 Virtual Visit IM/Peds Yane Barraza MD [address] [facility] [place] [address] (Wo rk) 03/03/2023 Virtual Visit Neurology Erlinda Barber MD [address] [facility] 295 [place] [address] (Wo rk) documented as of this encounter Procedures Procedure Name Priority Date/Time Associated Diagnosis Comme nts INR Routine 06/25/2019 Results for thi s procedure are in the resu lts section. documented in this encounter Results INR (06/25/2019) P athologist Signature INR 2.4 EXTERNAL LAB Specimen (Source) Anatomical Location Collection Method / Collectio n Time Received Time / Laterality Volume Blood specimen 06/25/2019 (specimen) Patient Reported LAB - BLOOD ORDERABLES Performing Organization Address City/State/ZIP Code Phon e Number EXTERNAL LAB EXTERNAL LAB External Lab documented in this encounter Visit Diagnoses Diagnosis 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 embolism snf current use of anticoagulant t herapy documented in this encounter Additional Health Concerns Assessment Noted Time PHQ-9 Depression Total Score: 4 04/12/2019 7:03 AM CDT documented as of this encounter Care Teams Mr Teacher Relationship Specialty Start Date End Date Doris Lai MD PCP - General 05/24/19 11/28/19 [address] [facility] [place] [id number] Chastity Montero MD Dermatology 09/23/14 [address] [facility] 98 [place], [place] [address] Johnnie Alcocer MD Surgeon General Surgery 03/23/[address] [place], [place] [address] Lucero Stevenson Assigned PCP 06/17/18 11/09/19 MD Annetta [facility] [address] [place], [place] [phone] Danni Marcus, CHANDLER Personal Advocate & 01/09/1901/17 Liaison (PAL) Kyle King Complex 04/23/19 Svetlana Osman, Pharmacist Pharmacotherapy 04/23/[address] [facility] [address] [facility] [place] [address] documented as of this encounter
--- OUTSIDE RECORDS SUMMARY | 2022-06-15 13:01 | XMS_ITS | Encounter Summary ---
:1945 Author Organization [place] Address [address] [place] [address] Care Team Providers Name Role Phone Chastity Montero MD Unavailable [phone] Johnnie Alcocer MD Unavailable Lucero Stevenson MD Unavailable [phone] Danni Marcus RN Unavailable Unavailable Mtm, Ea Complex Unavailable Unavailable Svetlana Osman [facility] Unavailable [phone] Doris Lai MD Primary Care Provider Encounter Details Date Type Department Care Team Description 06/18/2019 Hospital Encounter [facility] Jazzmine John MD [facility] [address] [address] Osteomyelitis (H) [facility] Nino Newsome MD [facility] [address] [place] [address] Diagnostic Imaging [address] [place] [address] Social History Tobacco Use Types Packs/Day [...] nystatin (MYCOSTATIN) Apply topically 0 8 09/11/2019 [id number] UNIT/GM external daily as needed cream nystatin (NYSTOP) 214593 APPLY TOPICALLY TO 60 g 0 02/201909/11/2019 [...] Cheung, [facility] [address] [facility] [place] [address] (Wo rk) 11/15/2022 Virtual Visit IM/Peds Yane Barraza MD [address] [facility] [place] [address] (Wo rk) 03/03/2023 Virtual Visit Neurology Erlinda Barber MD [address] [facility] 295 [place] [address] (Wo rk) documented as of this encounter Procedures Procedure Name Priority Date/Time Associated Diagnosis Comme nts XR CHEST PICC LINE Routine 06/18/2019 2:58 PM Osteomyelitis (H ) Results for this PLACEMENT 1 VIEW DREDGE HAND procedure a re in the results section. documented in this encounter Results XR Chest PICC Placement 1 View (06/18/2019 2:58 PM DREDGE HAND) Anatomical Region Laterality Modality Chest Other Specimen (Source) Anatomical Location Collection Method / Collectio n Time Received Time / Laterality Volume Impressions 06/18/2019 3:23 PM DREDGE HAND Right PICC line in good position, tip low SVC. Borderline cardiomegaly. Lungs appear cl ear. Mild rightward scoliosis of mid thoracic spine. Narrative 06/18/2019 3:23 PM DREDGE HAND EXAM: XR CHEST 1 VIEW FOR PICC LINE PLACEMENT LOCATION: [facility] DATE/TIME: 06/18/2019 2:58 PM INDICATION: Osteomyelitis, unspecified. PICC line placement. COMPARISON: 01/01/2018 Procedure Note Mekhi Desir MD - 12/24/2020Formatt ing of this note might be different from the original. EXAM: XR CHEST 1 VIEW FOR PICC LINE PLAC EMENT LOCATION: [facility] DATE/TIME: 06/18/2019 2:58 PM INDICATION: Osteomyelitis, unspecified. PICC line placement. COMPARISON: 01/01/2018 IMPRESSION: Right PICC line in good position, tip lo w SVC. Borderline cardiomegaly. Lungs appear cl ear. Mild rightward scoliosis of mid thoracic spine. Ruth John MD IMG DIAGNOSTIC IMAGING ORDER CONY documented in this encounter Visit Diagnoses Diagnosis Osteomyelitis (H) Unspecified osteomyelitis, site unspecif ied documented in this encounter Additional Health Concerns Assessment Noted Time PHQ-9 Depression Total Score: 4 04/12/2019 7:03 AM CDT documented as of this encounter Care Teams Counseling Case Manager Relationship Specialty Start Date End Date Doris Lai MD PCP - General 05/24/19 11/28/19 [address] [facility] [place] [id number] Chastity Montero MD Dermatology 09/23/14 [address] [facility] [address] [place], [place] [address] Johnnie Alcocer MD Surgeon General Surgery 03/23/17 [address] [facility] 300 [place], [place] [phone] Lucero Stevenson Assigned PCP 06/17/18 11/09/19 MD Annetta [facility] [address] [place], [place] [phone] Danni Marcus, RN Personal Advocate & 01/09/1901/17 Liaison (PAL) Fernando, Kyle Complex 04/23/19 Svetlana Osman, Pharmacist Pharmacotherapy 04/23/[address] [place] [id number] documented as of this encounter
--- OUTSIDE RECORDS SUMMARY | 2022-06-15 13:01 | XMS_ITS | Encounter Summary ---
:1945 Author Organization [place] Address Count includes the [facility] [place] [address] Care Team Providers Name Role Phone Chastity Montero MD Unavailable [phone] Johnnie Alcocer MD Unavailable Lucero Stevenson MD Unavailable [phone] Danni Marcus RN Unavailable Unavailable Mtm, Ea Complex Unavailable Unavailable Svetlana Osman [facility] Unavailable [phone] Haylie Cheung [facility] Unavailable [phone] Galdino Valdez MD Unavailable Galdino Valdez MD Primary Care Provider Jaiden Holcomb MD Primary Care Provider [phone] Kendall Joseph MD Unavailable Erlinda Barber MD Unavailable Jaiden Holcomb MD Unavailable [phone] Doris Lai MD Primary Care Provider Reason for Visit Reason Comments Wound Check Lt IT Encounter Details Date Type Department Care Team Description 06/11/2019 Office Visit - [facility] Patience Toussaint Pressu re injury of left ischium, stage 4 (H); [facility] 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 Morbid obesity with BMI of 50.0-59.9, ad ult (H); [place] [address] Hypoalbuminemia [address] [facility] [address] [place] [address] [phone] Social History Tobacco Use Types Packs/Day Years [...] Sign Reading Time Taken Comments Blood Pressure 128/68 06/11/2019 2:20 PM HEADWAITER/HEADWAITRESS Pulse 76 06/11/2019 2:20 PM HEADWAITER/HEADWAITRESS Temperature 36.6 ??C (97.9 ??F) 06/11/2019 2:20 PM HEADWAITER/HEADWAITRESS Respiratory Rate 20 06/11/2019 2:20 PM HEADWAITER/HEADWAITRESS Oxygen Saturation - - Inhaled Oxygen Concentration - - Weight - - Height - - Body Mass Index - - documented in this encounter Progress Notes Patience Toussaint NP - 06/11/2019 2:20 PM CST Images from the original note were not included. Progress Notes by Patience Toussaint NP at 06/11/2019 2:20 PM Author: Patience Toussaint NP Service: -- Author Type: Nurse Practitioner Filed: 06/11/2019 2:53 PM Encounter Date: 06/11/2019 Status: Signed Bible Teacher: Patience Toussaint NP (Nurse Practitioner) Follow up Vascular Visit Date of Service:06/11/2019 Date Last Seen: 05/15/2019; 05/31/2019 Chief Complaint: left ischial tuberosity pressure ulcer Pt returns to [facility] with regards to their left ischial tuberosity pressure ulcer. They arrive today with friend. They are currently using aquacel ag rope and bordered foam to the wounds. This is being done by home care very 1-2 days; has used vac in the past and this does not stayin place. Has gel cushion using on all seat surfaces; limiting time up to 30-60 minute increments. Has low air loss mattress at home on a hospital bed; positioning herself off the wound. Focusing on protein in her diet. We obtained MRI and this was + for osteomyelitis; working to get PICC line placed and recommending 4 weeks of IV antibiotics. They are feeling well today. Denies fevers, chills. No shortness of breath. Allergies: Cephalexin; Ciprofloxacin; Clindamycin; Lanolin; Lisinopril; Mupirocin; Neomycin; and Penicillins Medications: Current Outpatient Medications: ? acetaminophen (TYLENOL) 325 MG tablet, Take 975 mg by mouth every 8 (eight) hours as needed for pain., Disp: , Rfl: ? ampicillin-sulbactam (UNASYN) 3 gram SolR, Inject 12 g as directed daily., Disp: , Rfl: 0 ? ascorbic acid, vitamin C, [...] mg by mouth., Disp: , Rfl: ? levETIRAcetam (KEPPRA) 500 MG tablet, Take 500 mg by mouth 2 (two) times a day. , Disp: , Rfl: ? losartan (COZAAR) 50 MG tablet, Take 50 mg by mouth daily., Disp: , Rfl: ? wopbhntebeid-jzppjtwp-kicxsn (CEROVITE SENIOR) tablet, Take 1 tablet by mouth at bedtime., Disp: ,Rfl: ? nystatin (MYCOSTATIN) cream, Apply topically., Disp: , Rfl: ? sodium hypochlorite (DAKIN'S, HALF-STRENGTH,) external solution, Irrigate with as directed daily.,Disp: , Rfl: ? 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 ? Morbid obesity (H) ? [...] Referral placed for Dr. Kajal Huggins at [facility] in [place] per patient request. She has contact [...] Weakness left lower limb Physical Exam: BP 128/68 Pulse 76 Temp 97.9 ??F (36.6 ??C) Resp 20 General: Patient presents to clinic in no apparent distress. Head: normocephalic atraumatic Psychiatric: Alert and oriented x3. Respiratory: unlabored breathing; no cough Integumentary: Skin is uniformly warm, dry and pink. Wound #1 Location: left ischial tuberosity Size: 2.5L x 5W x 5.4depth. No sinus tract present, Woundbase: slough No undermining present. Wound is full thickness. There is large mucoid drainage. Periwound: no denudement, erythema, induration, maceration or warmth. periwound with slight skin damage from adhesive dressing Circumferential volume measures: No flowsheet data found. Ulceration(s)/Wound(s): VASC Wound 05/15/19 Buttocks (Active) Pre Size Length 2.5 06/11/2019 2:00 PM Pre Size Width 5 06/11/2019 2:00 PM Pre Size Depth 5.4 06/11/2019 2:00 PM Pre Total Sq cm 12.5 06/11/2019 2:00 PM Lab Values Lab Results Component Value Date SEDRATE 25 (H) 06/04/2019 Lab Results Component Value Date CREATININE 0.62 06/04/2019 No results found for: HGBA1C Lab Results Component Value Date BUN 23 06/04/2019 Lab Results Component Value Date ALBUMIN 3.3 (L) 06/04/2019 No results found for: [id number] Impression: 1. Pressure injury of left ischium, stage 4 (H) 2. Morbid obesity with BMI of 50.0-59.9, adult (H) 3. Hypoalbuminemia 05/15/19 left IT Are any of these wounds new today: No; Location: na Assessment/Plan: 1. Debridement: After discussion of risk factors and verbal consent was obtained 2% Lidocaine HCL jelly was applied, under clean conditions, the left it ulceration(s) were debrided using currette. Devitalized and nonviable tissue, along with any fibrin and slough, was removed to improve granulation tissue formation, stimulate wound healing, decrease overall bacteria load, disrupt biofilm formation and decrease edge senescence. Total excisional debridement was 12.5 sq cm from the epidermis/dermis area, into the subcutaneous tissue and into the muscle/fascia with a depth of 5.4 cm. Ulcers were improved afterwards and beer coil cleaner. Measures were unchanged after debridement. 2. Wound treatment: wound treatment will include irrigation and dressings to promote autolytic debridement which will include:continue home care; needs PICC; IV antibiotics for 4 weeks per ID; continue with aquacel ag; bordered foam; change every 1-2 days; wound vac would be ideal but due to body habitus and location of the wound this would not stay in place Improved wound 3. Edema: wears circaid. The compression wraps were applied today in clinic. Stable swelling 4. Nutrition: focus on protein; last albumin was nearly normal 5. Offloading: up for 30-60 minute increments; low air loss mattress; has gel cushion for seated surfaces Patient will follow up with me in 4 weeks for reevaluation. They were instructed to call the clinicsooner with any signs or symptoms of infection or any further questions/concerns. Answered all questions. Patience Toussaint DNP, RN, SURGICAL APPLIANCES SALESPERSON, CWOCN, CFCN, CLT [facility] [phone] This note was electronically signed by Patience Toussaint WAITER/HEADWAITRESS documented in this encounter Miscellaneous Notes Patient Instructions - HE - Patience Toussaint NP - 06/11/2019 2:20 PM CST Images from the original note were not included. Patient Instructions by Patience Toussaint NP at 06/11/2019 2:20 PM Author: Patience Toussaint NP Service: -- Author Type: Nurse Practitioner Filed: 06/11/2019 3:01 PM Encounter Date: 06/11/2019 Status: Addendum Bible Teacher: Celina Frias CMA (Radio Intelligence Operator) Related Notes: Original Note by Patience Toussaint NP (Nurse Practitioner) filed at 06/11/2019 2:47 PM Continue home care MRI was positive for osteomyelitis; or bone infection; Infectious disease is recommending PICC line and IV antibiotics Today we ordered supplies for you from [employer]. To reorder supplies or if you have any questions aboutyour order please call [employer] Customer Service at Wound Care Instructions Every 1-2 days home care will Irrigate your left ischial tuberosity wound(s) with dilute hibiclens (30cc in 500cc NS) Pat Dry Apply skin prep to skin surrounding the wound Apply aquacel ag rope into/onto the wounds (today in clinic we will use silvercel) Cover with KerraMax bordered foam (today in clinic we will use eclypse border oval super absorbant dressing) It is ok to get your wound [...] than this please contact our office at [phone]. Patience Toussaint DNP, RN, SURGICAL APPLIANCES SALESPERSON, CWOCN [facility] [phone] You will need to reposition frequently; keep direct pressure off of the wound or reddened area Reposition Every 1-2 hours while in bed; left, right; supine; repeat Reposition Every 15 minutes while up in a chair; chair push ups Stand every 30 minutes while in a chair if able Obtain a seat cushion; can get a 4 high density foam at [employer]; or GeoMat or J-cushion from [employer]; or we can order a ROHO cushion if you qualify for this type of cushion 4 high density foam cushion GeoMat Cushion Nacho Cushion Roho Cushion [facility] [address] [place] [address] [place] [address] [place] [address] www.[employer] [facility] [address] [place] [address] [email or web address] for [employer] [phone] [facility] [address] [place] [address] Chair Pushups Bed Positioning Addendum Note - Celina Frias - 06/11/2019 2:20 PM CST Addendum Note by Celina Frias CMA at 06/11/2019 2:20 PM Author: Celina Frias CMA Service: -- Author Type: Radio Intelligence Operator Filed: 06/11/2019 3:01 PM Encounter Date: 06/11/2019 Status: Signed Bible Teacher: Russell, Celina L, PALEOLOGY PROFESSOR (Radio Intelligence Operator) Addended by: CELINA FRIAS on: 06/11/2019 03:01 PM Modules accepted: Orders WAITER/HEADWAITRESS documented in this encounter Plan of Treatment Upcoming Encounters Date Type Specialty Care Team Description 11/15/2022 Virtual Visit Pharm Haylie Gonzalez, [facility] [address] [facility] [address] [place], [place] [phone] (Wo rk) 11/15/2022 Virtual Visit IM/Peds Yane Barraza MD [address] [place] [address] [address] [place] [phone] (Wo rk) 03/03/2023 Virtual Visit Neurology Erlinda Barber MD [address] [facility] [address] [place], [place] [address] (Wo rk) documented as of this encounter Visit Diagnoses Diagnosis Pressure injury of left ischium, stage 4 (H) Morbid obesity with BMI of 50.0-59.9, ad ult (H) Hypoalbuminemia Other disorders of plasma protein metabo lism documented in this encounter Additional Health Concerns Assessment Noted Time PHQ-9 Depression Total Score: 4 04/12/2019 7:03 AM CDT documented as of this encounter Care Teams Hydrogenation Still Operator Relationship Specialty Start Date End Date Galdino Valdez MD PCP - General Family Practice 11/29/19 02/12/20 [address] [place], [place] [phone] Jaiden Holcomb PCP - General Internal Medicine 02/13/2010/03 MD Jayesh [address] [place] [address] [place] [id number] Doris Lai MD PCP - General 05/24/19 11/28/[address] [place] [address] [address] [place] [phone] Chastity Montero MD Dermatology 09/23/14 [address] [facility] [address] [place], [place] [address] Johnnie Alcocer MD Surgeon General Surgery 03/23/[address] [place] [address] Lucero Stevenson, Assigned PCP 06/17/18 MD TOÑO LOPEZ [address] [place], [place] [phone] Danni Marcus, CHANDLER Personal Advocate & 01/09/1901/17 Liaison (PAL) Fernando Ea Complex 04/23/19 Svetlana Osman, Pharmacist Pharmacotherapy 04/23/19 [facility] [address] [facility] [place] [address] Haylie Cheung, Pharmacist Pharmacist 09/11/19 [facility] [address] [place] [address] [place], [place] [phone] Galdino Valdez MD Assigned PCP 11/10/19 05/23/20 [address] [place], [place] [phone] Opal, Assigned Sleep 05/08/20 03/27/21 Kendall Meehan MD Provider [address] [place], [place] [address] Erlinda Barber MD Assigned Neuroscience 05/08/20 01/26/21 [address] [facility] [address] [facility] [address] [place] [address] Jaiden Holcomb Assigned PCP 05/24/20 MD Jayesh [address] [place] [address] documented as of this encounter
--- OUTSIDE RECORDS SUMMARY | 2022-06-15 13:01 | XMS_ITS | Encounter Summary ---
:1945 Author Organization [place] Address [address] [facility] [place] [address] Care Team Providers Name Role Phone Chastity Montero MD Unavailable [phone] Johnnie Alcocer MD Unavailable Lucero Stevenson MD Unavailable [phone] Danni Marcus RN Unavailable Unavailable Mtm, Ea Complex Unavailable Unavailable Svetlana Osman [facility] Unavailable [phone] Doris Lai MD Primary Care Provider Encounter Details Date Type Department Care Team Description 06/22/2019 Home Infusion [facility] Reva Galvez, [facility] [address] [place], [place] [phone] [address] [facility] [phone] [place] [address] (Wo rk) Social History Tobacco [...] this encounter Progress Notes Yelena Meier - 06/22/2019 11:59 PM CST This is a recent snapshot of the patient's [facility] medical record. For current drug dose and complete information and questions, call [phone] or In [employer] home[employer]elusion ([id number]) CSN Number: [id number] RTER documented in this encounter Plan of Treatment Upcoming Encounters Date Type Specialty Care Team Description 11/15/2022 Virtual Visit Pharm D Haylie Cheung, [facility] [address] [facility] [place] [address] (Wo winter) 11/15/2022 Virtual [place] [address] [place] [address] [place] [id number] (Wo rk) 03/03/2023 Virtual Visit Neurology Erlinda Barber MD [address] [facility] 295 [place] [address] (Wo rk) documented as of this encounter Visit Diagnoses Not on filedocumented in this encounter Additional Health Concerns Assessment Noted Time PHQ-9 Depression Total Score: 4 04/12/2019 7:03 AM CDT documented as of this encounter Care Teams Detonator Maker Relationship Specialty Start Date End Date Doris Lai MD PCP - General 05/24/19 11/28/19 [address] [facility] [address] [place] [phone] Chastity Montero MD Dermatology 09/23/14 [address] [facility] 98 [place], [place] [address] Johnnie Alcocer MD Surgeon General Surgery 03/23/17 [address] [facility] [address] [place] [address] Lucero Stevenson Assigned PCP 06/17/18 11/09/19 MD Annetta [facility] [address] [place] [address] Danni Marcus, CHANDLER Personal Advocate & 01/09/1901/17 Liaison (PAL) Fernando, Ea Complex 04/23/19 Svetlana Osman, Pharmacist Pharmacotherapy 04/23/[address] [place] [id number] documented as of this encounter
--- OUTSIDE RECORDS SUMMARY | 2022-06-15 13:01 | XMS_ITS | Encounter Summary ---
:1945 Author Organization [place] Address [address] [place] [address] Care Team Providers Name Role Phone Chastity Montero MD Unavailable [phone] Johnnie Alcocer MD Unavailable Lucero Stevenson MD Unavailable Danni Marcus RN Unavailable Unavailable Mtm, Ea Complex Unavailable Unavailable Svetlana Osman [facility] Unavailable [phone] Haylie Cheung [facility] Unavailable [phone] Galdino Valdez MD Unavailable Galdino Valdez MD Primary Care Provider Jaiden Holcomb MD Primary Care Provider [phone] Kendall Joseph MD Unavailable Erlinda Barber MD Unavailable Jaiden Holcomb MD Unavailable Doris Lai MD Primary Care Provider Reason for Visit Reason Comments Infusion unasyn 1st dose Encounter Details Date Type Department Care Team Description 06/21/2019 Infusion - [facility] Provider, Other supervisor extruding department [facility] unspecified site [address] [place] [address] () [place] [address] Social History Tobacco Use Types [...] Sign Reading Time Taken Comments Blood Pressure 134/67 06/21/2019 1:00 PM ELEMENTARY EDUCATION TUTOR Pulse 71 06/21/2019 1:00 PM ELEMENTARY EDUCATION TUTOR Temperature - - Respiratory Rate - - Oxygen Saturation - - Inhaled Oxygen Concentration - - Weight - - Height - - Body Mass Index - - documented in this encounter Progress Notes Yanet Peters - 06/21/2019 11:30 AM CST Charlette arrived A&Ox4 ambulatory with her walker and stable, accompanied by a sister. Pt confirms she is here for a single dose of Unasyn and then she is to have home care infusions after this. Pt states she has not been contacted by the pharmacy nor [facility] and states its all been a mess all along. 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 Initial BP measurement was elevated, pt was admittedly very stressed about her appt today. Will re-check. R UE PICC C/D/I, bruising at insertion site. Pt is on warfarin. Excellent blood return from PICC andline easily flushed NS. VS improved Unasyn 3g reconstituted with [id number] per instruction, infused over 30min. Line flushed NOk68ips while pt was monitored; she had no sxs adverse Rxn. PICC flushed NS10ml and green cap placed. VSS Dc education/AVS reviewed, pt stated understanding and that her needs were met today. Charlette dc'd A&Ox4 ambulatory with her walker and stable, accompanied by a sister. Included on AVS was phone numbers for /[facility] and [facility]. ENTARY EDUCATION TUTOR documented in this encounter Miscellaneous Notes Patient Instructions - HE - Yanet Peters - 06/21/2019 11:30 AM ELEMENTARY EDUCATION TUTOR Patient Education [facility] [phone] [facility] [phone] Ampicillin; Sulbactam injection Brand Name: Unasyn What is this medicine? AMPICILLIN; SULBACTAM (am pi SILL in; sul CONCHITA banda) is a penicillin antibiotic. It is used to treat certain kinds of bacterial infections. It will not work for colds, flu, or other viral infections. How should I use this medicine? This medicine is infused into a vein or injected deep into a muscle. It is usually given by a healthcare professional in a hospital or clinic setting. If you get this medicine at home, you will be taught how to prepare and give this medicine. Use exactly as directed. Take your medicine at regular intervals. Do not take your medicine more often than directed. It is important that you put your used needles and syringes in a special sharps container. Do not put them in a trash can. If you do not have a sharps container, call your pharmacist or healthcare provider to get one. Talk to your calculation clerk regarding the use of this medicine in children. Special care may be needed. What side effects may I notice from receiving this medicine? Side effects that you should report to your doctor or health manager medicare marketing as soon as possible: ?? allergic reactions like skin rash or hives, swelling of the face, lips, or tongue ?? chest pain ?? difficulty breathing ?? fever, chills ?? pain or difficulty passing urine ?? redness, blistering, peeling or loosening of the skin, including inside the mouth ?? seizures ?? unusual bleeding, bruising ?? unusually weak or tired Side effects that usually do not require medical attention (report to your doctor or health manager medicare marketing if they continue or are bothersome): ?? diarrhea ?? headache ?? heartburn ?? nausea, vomiting ?? pain, irritation at the site of injection ?? sore mouth, tongue ?? stomach gas What may interact with this medicine? ?? allopurinol ?? female hormones, including contraceptive or control pills ?? probenecid ?? some other antibiotics given by injection What if I miss a dose? If you miss a dose, take it as soon as you can. If it is almost time for your next dose, take only that dose. Do not take double or extra doses. Where should I keep my medicine? Keep out of the reach of children. You will be instructed on how to store this medicine. Throw away any unused medicine after the expiration date on the label. What should I tell my health care provider before I take this medicine? They need to know if you have any of these conditions: ?? heart disease ?? kidney disease ?? mononucleosis ?? an unusual or allergic reaction to ampicillin, other penicillins or antibiotics, foods, dyes, or preservatives ?? or trying to get ?? breast-feeding What should I watch for while using this medicine? Tell your doctor or health manager medicare marketing if your symptoms do not improve or if you get new symptoms. Do not treat diarrhea with over the counter products. Contact your doctor if you have diarrhea that lasts more than 2 days or if the diarrhea is severe and watery. This medicine can interfere with some urine glucose tests. If you use such tests, talk with your health manager medicare marketing. control pills may not work properly while you are taking this medicine. Talk to your doctor about using an extra method of control. NOTE:This sheet is a summary. It may not cover all possible information. If you have questions aboutthis medicine, talk to your doctor, pharmacist, or health care provider. Copyright?? 2018 Else[employer] ENTARY EDUCATION TUTOR documented in this encounter Plan of Treatment Upcoming Encounters Date Type Specialty Care Team Description 11/15/2022 Virtual Visit Pharm Haylie Gonzalez, [facility] [address] [facility] [address] [place], [place] [phone] (Wo rk) 11/15/2022 Virtual Visit IM/Peds Yane Barraza MD [address] [place] [address] [place], [place] [phone] (Wo rk) 03/03/2023 Virtual Visit Neurology Erlinda Barber MD [address] [place] [address] 295 [place], [place] [address] (Wo rk) documented as of this encounter Visit Diagnoses Diagnosis Other chronic osteomyelitis, unspecified site (H) documented in this encounter Additional Health Concerns Assessment Noted Time PHQ-9 Depression Total Score: 4 04/12/2019 7:03 AM CDT documented as of this encounter Care Teams Reheater Relationship Specialty Start Date End Date Galdino Valdez MD PCP - General Family Practice 11/29/19 02/12/20 [address] [place], [place] [phone] Jaiden Holcomb PCP - General Internal Medicine 02/13/2010/03 MD Jayesh [address] [place] [address] [place] [phone] Doris Lai MD PCP - General 05/24/19 11/28/[address] [place] [address] [address] [place] [phone] Chastity Montero MD Dermatology 09/23/[address] [place] [address] 98 [place], [place] [address] Johnnie Alcocer MD Surgeon General Surgery 03/23/[address] [place], [place] [phone] Lucero Stevenson, Assigned PCP 06/17/18 MD TOÑO LOPEZ 8675 [place] [address] Danni Marcus, CHANDLER Personal Advocate & 01/09/1901/17 Liaison (PAL) Fernando, Ea Complex 04/23/19 Svetlana Osman, Pharmacist Pharmacotherapy 04/23/19 [facility] [address] [place], [place] [phone] Haylie Cheung, Pharmacist Pharmacist 09/11/19 [facility] [address] [facility] [address] [place], [place] [phone] Galdino Valdez MD Assigned PCP 11/10/19 05/23/20 [address] [place], [place] [phone] Opal, Assigned Sleep 05/08/20 03/27/21 Kendall Meehan MD Provider [address] [place] [address] Erlinda Barber MD Assigned Neuroscience 05/08/20 01/26/21 [address] [facility] 295 [place] [address] Jaiden Holcomb Assigned PCP 05/24/20 MD Jayesh 909 [place] [address] documented as of this encounter
--- OUTSIDE RECORDS SUMMARY | 2022-06-15 13:01 | XMS_ITS | Encounter Summary ---
:1945 Author Organization [place] Address [address] [place] [address] Care Team Providers Name Role Phone Chastity Montero MD Unavailable [phone] Johnnie Alcocer MD Unavailable Lucero Stevenson MD Unavailable [phone] Danni Marcus RN Unavailable Unavailable MtKyle euceda Complex Unavailable Unavailable Svetlana Osman [facility] Unavailable [phone] Doris Lai MD Primary Care Provider Reason for Visit Reason Onset Date Comments Orders 06/19/2019 Encounter Details Date Type Department Care Team Description 06/19/2019 [facility] Doris Agarwal MD Orders Yarelis [address] [facility] [address] [facility] [place] [address] [address] [place] [address] [phone] Social History Tobacco Use Types Packs/Day Years [...] Telephone Encounter - Jolanta Reddy RN - 06/20/2019 9:35 AM CST Call to Hilda, left a detailed message with a verbal ok for the orders below. Jolanta Reddy RN Message handled by Nurse Triage. RAL PRE ARRANGEMENT COUNSELOR Telephone Encounter - Katrina Priutt - 06/19/2019 4:00 PM CST Reason for Call: Request for an order or referral: Order or referral being requested: mcc 7x 2wks, Home Health Aide, 2x 8wks, then 1x 1wk, Date needed: as soon as possible Has the patient been seen by the PCP for this problem? YES Additional comments: wound care/pic line Phone number Patient can be reached at: Other phone number: [phone] Best Time: donta Can we leave a detailed message on this number? YES Call taken on 06/19/2019 at 4:01 PM by Katrina Pruitt RAL PRE ARRANGEMENT COUNSELOR documented in this encounter Plan of Treatment Upcoming Encounters Date Type Specialty Care Team Description 11/15/2022 Virtual Visit Haylie Wakefield, [facility] [address] [facility] [place] [address] (Wo rk) 11/15/2022 Virtual Visit IM/Peds Yane Barraza MD [address] [facility] [address] [place] [phone] (Wo rk) 03/03/2023 Virtual Visit Neurology Erlinda Barber MD [address] [facility] 295 [place], [place] [address] (Wo rk) documented as of this encounter Visit Diagnoses Not on filedocumented in this encounter Additional Health Concerns Assessment Noted Time PHQ-9 Depression Total Score: 4 04/12/2019 7:03 AM CDT documented as of this encounter Care Teams Irrigation Pump Installer Relationship Specialty Start Date End Date Doris Lai MD PCP - General 05/24/19 11/28/19 [address] [facility] [address] [place] [phone] Chastity Montero MD Dermatology 09/23/14 [address] [facility] 98 [place], [place] [address] Johnnie Alcocer MD Surgeon General Surgery 03/23/17 [address] [facility] 300 [place] [address] Lucero Stevenson Assigned PCP 06/17/18 11/09/19 MD TOÑO Littlejohn [address] [phone] Danni Marcus, CHANDLER Personal Advocate & 01/09/1901/17 Liaison (PAL) Mtkinsey, Ea Complex 04/23/19 Svetlana Osman, Pharmacist Pharmacotherapy 04/23/[address] [facility] [address] [facility] [address] [place], [place] [phone] documented as of this encounter
--- OUTSIDE RECORDS SUMMARY | 2022-06-15 13:01 | XMS_ITS | Encounter Summary ---
:1945 Author Organization [address] [place] [address] Care Team Providers Name Role Phone Chastity Montero MD Unavailable [phone] Johnnie Alcocer MD Unavailable Lucero Stevenson MD Unavailable [phone] Danni Marcus RN Unavailable Unavailable Mtkinsey, Kyle Complex Unavailable Unavailable Svetlana Osman [facility] Unavailable [phone] Doris Lai MD Primary Care Provider Encounter Details Date Type Department Care Team Description 06/21/2019 Medical Correspondence M [facility], [place]IM[place] youmag Info Mgmt Non-Provider HOME INFUSI ON [facility] [address] [place] [address] Social History Tobacco Use Types Packs/Day [...] Team Description 11/15/2022 Virtual Visit Haylie Wakefield, [facility] [address] [place], [place] [phone] (Wo rk) 11/15/2022 Virtual Visit [place] [address] [place] [address] [address] [place] [phone] (Wo rk) 03/03/2023 Virtual Visit Neurology Erlinda Barber MD [address] [place] [address] 295 [place], [place] [address] (Wo rk) documented as of this encounter Visit Diagnoses Not on filedocumented in this encounter Additional Health Concerns Assessment Noted Time PHQ-9 Depression Total Score: 4 04/12/2019 7:03 AM CDT documented as of this encounter Care Teams Accounts Payables Clerk Relationship Specialty Start Date End Date Doris Lai MD PCP - General 05/24/19 11/28/[address] [place] [address] [place] [address] Chastity Montero MD Dermatology 09/23/14 [address] [place] [address] [facility] 98 [place], [place] [address] Johnnie Alcocre MD Surgeon General Surgery 03/23/17 [address] [facility] 300 [place], [place] [address] Lucero Stevenson Assigned PCP 06/17/18 11/09/19 MD TOÑO Littlejohn [place] [address] [facility] [address] [place] [phone] Danni Marcus, CHANDLER Personal Advocate & 01/09/1901/17 Liaison (PAL) Fernando, Ea Complex 04/23/19 Svetlana Osman, Pharmacist Pharmacotherapy 04/23/19 [facility] [address] [place] [phone] documented as of this encounter
--- OUTSIDE RECORDS SUMMARY | 2022-06-15 13:01 | XMS_ITS | Encounter Summary ---
:1945 Author Organization [place] Address [address] [place] [address] Care Team Providers Name Role Phone Chastity Montero MD Unavailable [phone] Johnnie Alcocer MD Unavailable Lucero Stevenson MD Unavailable Danni Marcus RN Unavailable Unavailable MtKyle euceda Complex Unavailable Unavailable Svetlana Osman [facility] Unavailable [phone] Doris Lai MD Primary Care Provider Reason for Visit Reason Onset Date Comments INR RESULTS 06/24/2019 Encounter Details Date Type Department Care Team Description 06/24/2019 [facility] Doris Agarwal MD INR RESULTS [place] [address] [facility] 3[address] [facility] [place] [address] [address] [place] [address] [phone] Social History Tobacco Use Types Packs/Day Years [...] Telephone Encounter - Kristine Eastman RN - 06/24/2019 8:21 AM FIELD CROP FARMWORKER ANTICOAGULATION MANAGEMENT Patient Name: Charlette Brush Date: 06/24/2019 ASSESSMENT /SUBJECTIVE: 06/21/19 INR result of 2.4 is therapeutic. Goal INR of 2.0-3.0 ??? Warfarin dose taken: Warfarin taken as previously instructed ??? Diet: No new diet changes affecting INR ??? Medication changes/ interactions: Still recieving Unasyn via PICC ??? Previous INR: Subtherapeutic ??? S/S of bleeding or thromboembolism: No ??? New injury or illness: Yes: Currently treating Osteomylelitis ??? Upcoming surgery, procedure or cardioversion: No ??? Additional findings: none PLAN: Spoke with Goldie ARTEAGA regarding INR result and instructed: Warfarin Dosing Instructions: Continue your current warfarin dose Instructed patient to follow up no later than: 06/24/19 Education provided: Alesha Amezcua verbalizes understanding and agrees to warfarin dosing plan. Instructed to call the Anticoagulation Clinic for any changes, questions or concerns. 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 [Z86.711] terminal operations supervisor current use of 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 [Z79.01] Anticoagulation Episode Summary INR check location: Preferred lab: EXTERNAL LAB Send INR reminders to: [facility] Comments: 3mg & 10mg tabs - devaughn dose / Interim Home Care qod - Kana [phone] / APPT CARD ONLY Anticoagulation Care Providers Provider Role Specialty Phone number Lucero Stevenson MD Internal Medicine [phone] D CROP FARMWORKER documented in this encounter Plan of Treatment Upcoming Encounters Date Type Specialty Care Team Description 11/15/2022 Virtual Visit Pharm D Haylie Cheung, [facility] [address] [facility] [place] [place] [address] (Wo rk) 11/15/2022 Virtual Visit IM/Peds Yane Barraza MD [address] [place] [address] (Wo rk) 03/03/2023 Virtual Visit Neurology Erlinda Barber MD 420 [facility] 295 [place] [address] (Wo rk) documented as of this encounter Procedures Procedure Name Priority Date/Time Associated Diagnosis Comme nts INR Routine 06/21/2019 Results for thi s procedure are in the resu lts section. documented in this encounter Results INR (06/21/2019) P athologist Signature INR 2.4 EXTERNAL LAB Specimen (Source) Anatomical Location Collection Method / Collectio n Time Received Time / Laterality Volume Blood specimen 06/21/2019 (specimen) Resulting Agency Comment Patient Reported LAB - BLOOD ORDERABLES Performing [...] as of this encounter Care Teams Roll Up Machine Operator Relationship Specialty Start Date End Date Doris Lai MD PCP - General 05/24/19 11/28/19 [address] [facility] [address] [place] [phone] Chastity Montero MD Dermatology 09/23/14 [address] [place] [address] [facility] 98 [place], [place] [address] Johnnie Alcocer MD Surgeon General Surgery 03/23/[address] [place], [place] [address] Lucero Stevenson Assigned PCP 06/17/18 11/09/19 MD Annetta [facility] 8675 [place], [place] [phone] Danni Marcus, CHANDLER Personal Advocate & 01/09/1901/17 Liaison (PAL) Fernando, Kyle Complex 04/23/19 Svetlana Osman, Pharmacist Pharmacotherapy 04/23/19 [facility] [address] [facility] [place] [address] documented as of this encounter
--- OUTSIDE RECORDS SUMMARY | 2022-06-15 13:02 | XMS_ITS | Encounter Summary ---
:1945 Author Organization [place] Address [address] [place] [address] Care Team Providers Name Role Phone Chastity Montero MD Unavailable [phone] Johnnie Alcocer MD Unavailable Lucero Stevenson MD Unavailable [phone] Danni Marcus RN Unavailable Unavailable Mtm, Ea Complex Unavailable Unavailable Svetlana Osman [facility] Unavailable [phone] Haylie Cheung [facility] Unavailable [phone] Galdino Valdez MD Unavailable Galdino Valdez MD Primary Care Provider Jaiden Holcomb MD Primary Care Provider Kendall Joseph MD Unavailable Erlinda Barber MD Unavailable Jaiden Holcomb MD Unavailable [phone] Doris Lai MD Primary Care Provider Encounter Details Date Type Department Care Team Description 05/27/2019 [facility] Patience Toussaint NP Pressure injury of [facility] [address] left ischi um, stage [address] 4 (H) [address] [place] [place] [address] [phone] Social History Tobacco Use Types Packs/Day Years [...] [facility] [address] [facility] [place] [address] (Wo rk) 11/15/2022 Virtual Visit IM/Peds Yane Barraza MD [address] [facility] [address] [facility] [place] [address] (Wo rk) 03/03/2023 Virtual Visit Neurology Erlinda Barber MD [address] [facility] [address] [place] [address] (Wo rk) documented as of this encounter Visit Diagnoses Diagnosis Pressure injury of left ischium, stage 4 (H) documented in this encounter Additional Health Concerns Assessment Noted Time PHQ-9 Depression Total Score: 4 04/12/2019 7:03 AM CDT documented as of this encounter Care Teams Bench Assembler Electrical Relationship Specialty Start Date End Date Galdino Valdez MD PCP - General Family Practice 11/29/19 02/12/20 [address] [place], [place] [phone] Jaiden Holcomb PCP - General Internal Medicine 02/13/2010/03 MD Jayesh [address] [facility] [address] [place] [id number] Doris Lai MD PCP - General 05/24/19 11/28/[address] [facility] [address] [place] [id number] Chastity Montero MD Dermatology 09/23/14 [address] [facility] [address] [place], [place] [phone] Johnnie Alcocer MD Surgeon General Surgery 03/23/[address] [place], [place] [phone] Lucero Stevenson, Assigned PCP 06/17/18 MD TOÑO LOPEZ [address] [place] [phone] Danni Marcus, CHANDLER Personal Advocate & 01/09/1901/17 Liaison (PAL) Kyle King Complex 04/23/19 Svetlana Osman, Pharmacist Pharmacotherapy 04/23/19 [facility] [address] [place], [place] [id number] Haylie Cheung, Pharmacist Pharmacist 09/11/19 [facility] [address] [facility] [address] [place], [place] [phone] Galdino Valdez MD Assigned PCP 11/10/19 05/23/20 [address] [place], [place] [phone] Opal, Assigned Sleep 05/08/20 03/27/21 Kendall Meehan MD Provider [address] [facility] [address] [place] [address] Erlinda Barber MD Assigned Neuroscience 05/08/20 01/26/21 [address] [facility] [address] [place] [address] Jaiden Holcomb Assigned PCP 05/24/20 MD Jayesh 909 [place] [address] documented as of this encounter
--- OUTSIDE RECORDS SUMMARY | 2022-06-15 13:02 | XMS_ITS | Encounter Summary ---
:1945 Author Organization [place] Address [address] [place] [address] Care Team Providers Name Role Phone Chastity Montero MD Unavailable [phone] Johnnie Alcocer MD Unavailable Lucero Stevenson MD Unavailable [phone] Danni Marcus RN Unavailable Unavailable Mtkinsey, Kyle Complex Unavailable Unavailable Svetlana Osman [facility] Unavailable [phone] Doris Lai MD Primary Care Provider Encounter Details Date Type Department Care Team Description 05/24/2019 [facility] Patience Toussaint NP Pressure injury of left ischium, stage 4 (H); Encounter [facility] [address] [place] [address] Morbid obesity with BMI of 5 0.0-59.9, adult (H); [address] [facility] Hypoalbuminemia [place], [place] [address] [address] [place], [place] [phone] [address] Social History Tobacco Use Types Packs/Day Years [...] 05/03/2021 organizations such as anabaptist groups, unions, fraJooce or athletic groups, or school groups? How [...] nystatin (MYCOSTATIN) Apply topically 0 8 09/11/2019 [id number] UNIT/GM external daily as needed cream nystatin (NYSTOP) 123762 APPLY TOPICALLY TO 60 g 0 02/201909/11/2019 [...] Haylie Cheung, [facility] [address] [facility] [place] [address] (Wo rk) 11/15/2022 Virtual Visit IM/Peds Yane Barraza MD [address] [facility] [address] [facility] [place] [phone] (Wo rk) 03/03/2023 Virtual Visit Neurology Erlinda Barber MD [address] [facility] 295 [place] [address] (Wo rk) documented as of this encounter Procedures Procedure Name Priority Date/Time Associated Comments Diagnosis MR PELVIS Routine 05/24/2019 12:03 PM Pressure injury of Re sults for this (INTRAPELVIC ORGANS) COMMUNICATIONS EQUIPMENT OPERATOR left ischium, stage procedure are in W/O & W CONTRAST 4 (H) the results Morbid obesity with section. BMI of 50.0-59.9, adult (H) Body mass index (BMI) 50.0-59.9, adult (H) Hypoalbuminemia ISTAT CREATININE Routine 05/24/2019 10:34 AM Resu lts for this POCT COMMUNICATIONS EQUIPMENT OPERATOR procedure are i n the results section. documented in this encounter Results MR Pelvis (Intrapelvic Organs) wo&w Contrast (05/24/2019 12:03 PM COMMUNICATIONS EQUIPMENT OPERATOR) Anatomical Region Laterality Modality Abdomen/Pelvis, SUBRAD MR BODY, UMP MR BODY, RAD MR Other Specimen (Source) Anatomical Location Collection Method / Collectio n Time Received Time / Laterality Volume Impressions 05/24/2019 4:23 PM COMMUNICATIONS EQUIPMENT OPERATOR 1. ??Deep decubitus ulceration at the le ft ischial tuberosity. Ulceration comes in close contact with the ischial tuberosit y where there is either focal reactive osteitis or early osteomyelitis present. No amie cortical destructive change or abscess. Narrative 05/24/2019 4:23 PM COMMUNICATIONS EQUIPMENT OPERATOR EXAM: MRI PELVIS WITHOUT AND WITH IV CONTRAST LOCATION: [facility] DATE/TIME: 05/24/2019 12:03 PM INDICATION: Pelvis pain, osteomyelitis s uspected, initial exam stage 4 pressure ulcer left ischial tuberosity; present 1.5 years. COMPARISON: 05/22/2018. TECHNIQUE: With and without contrast. CONTRAST: Gadavist 10 mL FINDINGS: Deep soft tissue ulceration ad jacent to the left ischial tuberosity with intense enhancement within the subcutaneous soft tissues along the ulcer tract. The abnormality abuts the ischial tuber osity where there is minimal enhancement and edema. There is no amie periosteal reaction or cortical destructive change. There is no T1 marrow replacement. Remaining exam shows no other sites of d eep tissue ulceration. There is no rim- enhancing fluid collection or abscess. Pelvic ring is intact. No fracture. Intrapelvic contents show no free fluid in the pelvis. Large cervical nabothian cyst. Procedure Note Mike Gomez MD - 12/23/2020 EXAM: MRI PELVIS WITHOUT AND WITH IV CON TRAST LOCATION: [facility] DATE/TIME: 05/24/2019 12:03 PM INDICATION: Pelvis pain, osteomyelitis s uspected, initial exam stage 4 pressure ulcer left ischial tuberosity; present 1.5 years. COMPARISON: 05/22/2018. TECHNIQUE: With and without contrast. CONTRAST: Gadavist 10 mL FINDINGS: Deep soft tissue ulceration ad jacent to the left ischial tuberosity with intense enhancement within the subcutaneous soft tissues along the ulcer tract. The abnormality abuts the ischial tuberosity where there is minimal enhancement and edema. There is no amie periosteal reaction or cortical destructive change. There is no T1 marrow replacement. Remaining exam shows no other sites of d eep tissue ulceration. There is no rim- enhancing fluid collection or abscess. Pelvic ring is intact. No fracture. Intrapelvic contents show no free fluid in the pelvis. Large cervical nabothian cyst. IMPRESSION: 1. Deep decubitus ulceration at the left ischial tuberosity. Ulceration comes in close contact with the ischial tuberosity where there is either focal reactive osteitis or early osteomyelitis present. No amie cortical destructive change or abscess. Patience Toussaint NP IMG MRI ORDERABLES (ABNORMAL) iStat Creatinine, POCT (05/24/2019 10:34 AM COMMUNICATIONS EQUIPMENT OPERATOR) athologist Signature Creatinine POCT 0.5 (L) 0.6 - 1.1 05/24/2019 [facility] mg/dL 10:34 AM [facility] POCT RESULTS GFR Estimate If >60 >60 05/24/2019 [facility] Black mL/min/1.7 10:34 AM [facility] POCT 3m2 RESULTS GFR Estimate >60 >60 05/24/2019 [facility] mL/min/1.7 10:34 AM [facility] POCT 3m2 RESULTS Specimen Anatomical Collection Method Collection Time Receive d Time (Source) Location / / Volume Laterality Blood specimen 05/24/2019 10:34 9 (specimen) AM COMMUNICATIONS EQUIPMENT OPERATOR 10:38 AM COMMUNICATIONS EQUIPMENT OPERATOR Patience Toussaint NP LAB - ENTER/EDIT POCT Performing Organization Address City/State/ZIP Code Phon e Number [facility] POCT RESULTS [address] [place], [place] [address] documented in this encounter Visit Diagnoses Diagnosis Pressure injury of left ischium, stage 4 (H) Morbid obesity with BMI of 50.0-59.9, ad ult (H) Hypoalbuminemia Other disorders of plasma protein metabo lism documented in this encounter Additional Health Concerns Assessment Noted Time PHQ-9 Depression Total Score: 4 04/12/2019 7:03 AM CDT documented as of this encounter Care Teams Ui Engineer Relationship Specialty Start Date End Date Doris Lai MD PCP - General 05/24/19 11/28/19 [address] [facility] [address] [place] [phone] Chastity Montero MD Dermatology 09/23/[address] [place] [address] 98 [place], [place] [address] Johnnie Alcocer MD Surgeon General Surgery 03/23/[address] [place] [address] Lucero Stevenson Assigned PCP 06/17/18 11/09/19 MD Annetta [facility] [address] [place] [address] Danni Marcus, CHANDLER Personal Advocate & 01/09/1901/17 Liaison (PAL) Fernando, Ea Complex 04/23/19 Svetlana Osman, Pharmacist Pharmacotherapy 04/23/19 [facility] [address] [place] [address] documented as of this encounter
--- OUTSIDE RECORDS SUMMARY | 2022-06-15 13:02 | XMS_ITS | Encounter Summary ---
:1945 Author Organization [place] Address [address] [place] [address] Care Team Providers Name Role Phone Chastity Montero MD Unavailable [phone] Johnnie Alcocer MD Unavailable Lucero Stevenson MD Unavailable [phone] Danni Marcus RN Unavailable Unavailable MtKyle euceda Complex Unavailable Unavailable Svetlana Osman [facility] Unavailable [phone] Doris Lai MD Primary Care Provider Reason for Visit Reason Onset Date Comments INR RESULTS 06/05/2019 Encounter Details Date Type Department Care Team Description 06/05/2019 [facility] Doris Agarwal MD INR RESULTS [place] [address] [facility] [address] [facility] [place] [address] [address] [place] [address] [phone] Social History Tobacco Use Types Packs/Day Years [...] Telephone Encounter - Sasha Rueda RN - 06/05/2019 2:55 PM CST ANTICOAGULATION MANAGEMENT Patient Name: Charlette Brush Date: 06/05/2019 ASSESSMENT /SUBJECTIVE: Today's INR result of 1.9 [...] ??? Additional findings: None PLAN: Spoke with Jennifer/[facility] Nurse regarding INR result and instructed: Warfarin Dosing Instructions: boost Dose of 13 mg today, then 10 mg daily Instructed patient to follow up no later than: 1 week Education provided: Nurse Steven verbalizes understanding and agrees to warfarin dosing plan. Instructed to call the Anticoagulation Clinic for any changes, questions or concerns. (#[phone]) OBJECTIVE: INR Date Value Ref Range Status 06/05/2019 1.9 (A) 0.8 - 1.1 Final Anticoagulation Summary As of 06/05/2019 INR goal: 2.0-3.0 TTR: 79.8 % (3.7 y) INR used for dosin.9! 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] keno terminal operator current use of 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 [Z79.01] Anticoagulation Episode Summary INR check location: Preferred lab: EXTERNAL LAB Send INR reminders to: [facility] Comments: 3mg & 10mg tabs - devaughn dose / Interim Home Care qod - Kana [phone] / APPT CARD ONLY Anticoagulation Care Providers Provider Role Specialty Phone number Lucero Stevenson MD Internal Medicine [phone] IED ANTHROPOLOGIST documented in this encounter Plan of Treatment Upcoming Encounters Date Type Specialty Care Team Description 11/15/2022 Virtual Visit Pharm D Haylie Cheung, [facility] [address] [place] [address] [place] [address] (Lena max) 11/15/2022 Virtual Visit IM/Peds Yane Barraza MD [address] [facility] [place] [address] (Wo winter) 03/03/2023 Virtual Visit Neurology Erlinda Barber MD [address] [facility] 295 [place] [address] (Lena max) documented as of this encounter Procedures Procedure Name Priority Date/Time Associated Diagnosis Comme nts INR Routine 06/05/2019 Results for thi s procedure are in the resu lts section. documented in this encounter Results (ABNORMAL) INR (06/05/2019) P athologist Signature INR 1.9 (A) 0.8 - 1.1 EXTERNAL LAB Specimen (Source) Anatomical Location Collection Method / Collectio n Time Received Time / Laterality Volume Blood specimen 06/05/2019 (specimen) Resulting Agency Comment Home care Patient Reported LAB - BLOOD ORDERABLES Performing Organization Address City/State/ZIP Code Phon e Number EXTERNAL LAB EXTERNAL LAB External Lab documented in this encounter Visit Diagnoses Diagnosis 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 embolism correction current use of anticoagulant t herapy documented in this encounter Additional Health Concerns Assessment Noted Time PHQ-9 Depression Total Score: 4 04/12/2019 7:03 AM CDT documented as of this encounter Care Teams Hospitality Manager Relationship Specialty Start Date End Date Doris Lai MD PCP - General 05/24/19 11/28/19 [address] [facility] [address] [place] [id number] Chastity Montero MD Dermatology 09/23/14 [address] [facility] 98 [place], [place] [address] Johnnie Alcocer MD Surgeon General Surgery 03/23/[address] [place], [place] [phone] Lucero Stevenson Assigned PCP 06/17/18 11/09/19 MD TOÑO [place] [address] [place], [place] [phone] Danni Marcus, CHANDLER Personal Advocate & 01/09/1901/17 Liaison (PAL) Fernando, Kyle Complex 04/23/19 Svetlana Osman, Pharmacist Pharmacotherapy 04/23/19 [facility] [address] [facility] [address] [place] [id number] documented as of this encounter
--- OUTSIDE RECORDS SUMMARY | 2022-06-15 13:02 | XMS_ITS | Encounter Summary ---
:1945 Author Organization [place] Address [facility] [place] [address] Care Team Providers Name Role Phone Chastity Montero MD Unavailable [phone] Johnnie Alcocer MD Unavailable Lucero Stevenson MD Unavailable [phone] Danni Marcus RN Unavailable Unavailable Mtm, Ea Complex Unavailable Unavailable Svetlana Osman [facility] Unavailable [phone] Haylie Cheung [facility] Unavailable [phone] Galdino Valdez MD Unavailable Galdino Valdez MD Primary Care Provider Jaiden Holcomb MD Primary Care Provider [phone] Kendall Joseph MD Unavailable Erlinda Barber MD Unavailable Jaiden Holcomb MD Unavailable [phone] Doris Lai MD Primary Care Provider Reason for Visit Reason Comments Follow Up Encounter Details Date Type Department Care Team Description 06/11/2019 Office Visit - [facility] Djevi, Other ch ronic osteomyelitis, unspecified site (H); [facility] Mahamed Miranda MD Morbid obesity (H); [address] [facility] INFECTIOUS Pressur e injury of left buttock, stage 4 (H) Street [address] [facility] [address] [address] [facility] [phone] [place] [address] Social History Tobacco Use Types Packs/Day Years [...] Sign Reading Time Taken Comments Blood Pressure 126/74 06/11/2019 11:08 AM PASSENGER REPRESENTATIVE Pulse 76 06/11/2019 11:08 AM PASSENGER REPRESENTATIVE Temperature 36.3 ??C (97.3 ??F) 06/11/2019 11:08 AM PASSENGER REPRESENTATIVE Respiratory Rate - - Oxygen Saturation - - Inhaled Oxygen Concentration - - Weight 153.3 kg (338 lb) 06/11/2019 11:08 AM PASSENGER REPRESENTATIVE Height - - Body Mass Index 52.94 05/15/2019 10:08 AM CDT documented in this encounter Progress Notes Ruth John MD - 06/11/2019 11:15 AM CST [facility] follow-up note. Name: Charlette Brush : 1945 PCP: Doris Lai MD DOS: 06/11/19 CC: Ischial osteomyelitis associated with chronic nonhealing wound. HPI/Interval History: Charlette Brush is a 74 y.o. female with the history of morbid obesity with BMI of 52, necrotizing fasciitis of the left buttock status [place] [facility] [place] She developed chronic nonhealing wound since then. More recently she was diagnosed with left ischial osteomyelitis and was sent to ID clinic. Unfortunately no cultures were collected prior to that visit. On exam the patient had yany deep pressure ulcer with Hilda Patel layer of soft tissue covering the bone. Cultures were collected in clinic and are now back positive with Proteus as well as ampicillin susceptible Enterococcus faecalis and diphtheroids. The patient is back in clinic today for follow-up. In clinic today, the patient continued to have a lot of drainage with foul smell. No fever, chills, night sweats. We had a long discussion about her penicillin allergy today. She never actually had any reaction. She received penicillin injection in her 20s and did not have any reaction. About 20 years ago while she had some rash noted on antibiotic, she was tested for allergens and was told she had allergy to penicillin, cephalosporin. The last time she took antibiotic was about 20 years ago as stated above. Shedenies any shortness of breath, chest pain, lip swelling when she received penicillin 20 years ago. PMH: Past Medical History: Diagnosis Date ??? [...] Patient has appointment with [facility] Specialist at [facility] on 01/11. 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 ??? Morbid obesity (H) ??? [...] Referral placed for Dr. Kajal Huggins at [facility] in [place] per patient request. She has contact i [...] to Visit Medication Sig Dispense Refill ??? losartan (COZAAR) 50 MG tablet Take 50 mg by mouth daily. ??? acetaminophen (TYLENOL) 325 MG tablet Take [...] mouth 2 (two) times a day. ??? hmnqqmrsctng-jddynrme-qiafhc (CEROVITE SENIOR) tablet Take 1 tablet by mouth at bedtime. ??? nystatin (MYCOSTATIN) cream Apply topically. ??? sodium hypochlorite (DAKIN'S, HALF-STRENGTH,) external solution Irrigate with as directed daily. ??? warfarin (COUMADIN) 10 MG tablet Take 10 mg by mouth daily. ??? [DISCONTINUED] losartan (COZAAR) 100 MG tablet Take 50 mg by mouth daily. No current facility-administered medications on file prior to visit. Review of System: 12 points review of system is negative except for findings in the HPI. Exam VS: Vitals: 06/11/19 1108 BP: 126/74 Pulse: 76 Temp: 97.3 ??F (36.3 ??C) Gen: Pleasant in no acute distress. HEENT: NCAT. EOMI. Neck: No LAD. Lungs: Clear to auscultation bilaterally with no crackles or wheezes. Card: RRR. No RMG. Peripheral pulses present and symmetrical. No edema. Abd: Soft NT ND. No hepatomegaly or splenomegaly. MSK: Large left ischial wound with foul smell and a lot of drainage. Dressing is soaked. Very thin layer of soft tissue covering the bone. Spicules could be felt. Wound soiled with feces. Ext: No edema Lymph: No cervical or supraclavicular adenopathy. Skin: No rash Neuro: Alert and oriented to place time and person. Cranial nerves grossly intact. Labs: Wound culture, gram stain Order: [id number] Status: Edited Result - FINAL ?Visible to patient: Yes (MyChart) Next appt: Today at 02:20 PM in Vascular Surgery (Patience Toussaint NP) Dx: Other chronic osteomyelitis, unspecif... Specimen Information: Wound; Swab ?? Culture 3+ DiphtheroidsAbnormal 2+ Enterococcus faecalisAbnormal 2+ Proteus mirabilisAbnormal ?? Gram Stain Result 1+ Polymorphonuclear leukocytes 2+ Gram positive cocci in pairs 1+ Gram positive bacilli, diphtheroid like Resulting Agency: [facility] Susceptibility Enterococcus faecalis Proteus mirabilis LOW [...] Imaging: MR Pelvis With Without Contrast (Order [id number]) Imaging Date: 05/24/2019 Department: [facility] MRI Released By: Hallie Scanlon Authorizing: Patience Toussaint NP Study Result EXAM: MRI PELVIS WITHOUT AND WITH IV CONTRAST LOCATION: [facility] DATE/TIME: 05/24/2019 12:03 PM ?? [...] the left [place] [facility] [place]. 3. Chronic nonhealing left ischial wound with profuse drainage. No evidence of soft tissue infection. The wound was soiled with feces. Sister convinced she may have undiagnosed celiac disease. 4. Left ischial osteomyelitis. Given the duration of the wound as well as significant drainage, the MRI results, this is most likely osteomyelitis. Cultures with ampicillin susceptible enterococcus andProteus. No MRSA present. After a long discussion with the patient and her sister today, we have agreed to try Unasyn continuous as the best strategy. Alternative will be IV Zosyn or IV ertapenem plus IV vancomycin if unable to tolerate Unasyn. 5. Multiple antibiotic allergy including to Cipro, Clinda, penicillin, cephalexin. See HPI for discussion. Patient and sister willing to try her on Unasyn as discussed above. Recommendations: -Consented for PICC line today. -Outpatient orders for PICC placed. -Unasyn (preferable if can be given via a pump) for 4 weeks -Alternative is Zosyn every 8 hours -Last alternative is Ertapenem 1 gm daily and IV Vanco (with through of 15-20) -Weekly CBC/Diff, BMP, CRP. -Watch for rash, or other new symptoms. Stop the med and let me if it occurs. -Home infusion will be in touch with you for best regimen that fits your needs. -Follow up in 3-4 weeks. 60 minutes of total care with greater than 50% dsyv-vs-vese with the patient obtaining PICC line consent, discussing antibiotic allergy, antibiotic regimen, and treatment strategy. Rafa John [facility] . ENGER REPRESENTATIVE documented in this encounter Miscellaneous Notes Patient Instructions - HE - Ruth John MD - 06/11/2019 11:15 AM PASSENGER REPRESENTATIVE Thank you for coming today. Your wound cultures grew Proteus and Enterococcus. Based on susceptibility, the best simple antibiotic is either Unasyn or Zosyn. Alternative regimen is Ertapenem + Vancomycin. Plan: -Consented for PICC line today. -Outpatient orders for PICC placed. -Unasyn (preferable if can be given via a pump) for 4 weeks -Alternative is Zosyn every 8 hours -Last alternative is Ertapenem 1 gm daily and IV Vanco (with through of 15-20) -Weekly CBC/Diff, BMP, CRP. -Watch for rash, or other new symptoms. Stop the med and let me if it occurs. -Home infusion will be in touch with you for best regimen that fits your needs. -Follow up in 3-4 weeks. Rafa John MD ENGER REPRESENTATIVE documented in this encounter Plan of Treatment Upcoming Encounters Date Type Specialty Care Team Description 11/15/2022 Virtual Visit Pharm Haylie Gonzalez, [facility] [address] [facility] [place] [address] (Lena max) 11/15/2022 Virtual Visit IM/Peds Yane Barraza MD [address] [facility] [place] [address] (Lena max) 03/03/2023 Virtual Visit Neurology Erlinda Barber MD [address] [facility] [address] [place], [place] [id number] (Lena rk) documented as of this encounter Visit Diagnoses Diagnosis Other chronic osteomyelitis, unspecified site (H) Morbid obesity (H) Morbid obesity Pressure injury of left buttock, stage 4 (H) documented in this encounter Additional Health Concerns Assessment Noted Time PHQ-9 Depression Total Score: 4 04/12/2019 7:03 AM CDT documented as of this encounter Care Teams Covering And Lining Supervisor Relationship Specialty Start Date End Date Galdino Valdez MD PCP - General Family Practice 11/29/19 02/12/20 [address] [place], [place] [phone] Jaiden Holcomb PCP - General Internal Medicine 02/13/2010/03 MD Jayesh [address] [facility] [address] [place] [id number] Doris Lai MD PCP - General 05/24/19 11/28/19 [address] [facility] [address] [place] [phone] Chastity Montero MD Dermatology 09/23/[address] [place] [address] [address] [place], [place] [address] Johnnie Alcocer MD Surgeon General Surgery 03/23/[address] [place], [place] [address] Lucero Stevenson, Assigned PCP 06/17/18 MD TOÑO LOPEZ [address] [place], [place] [phone] Danni Marcus, CHANDLER Personal Advocate & 01/09/1901/17 Liaison (PAL) Mtm, Ea Complex 04/23/19 Svetlana Osman, Pharmacist Pharmacotherapy 04/23/19 [facility] [address] [place], [place] [id number] Haylie Cheung, Pharmacist Pharmacist 09/11/19 [facility] [address] [place], [place] [phone] Galdino Valdez MD Assigned PCP 11/10/19 05/23/20 [address] [place] [address] Opal, Assigned Sleep 05/08/20 03/27/21 Kendall Meehan MD Provider [address] [facility] [address] [place] [address] Erlinda Barber MD Assigned Neuroscience 05/08/20 01/26/21 [address] [facility] [address] [place] [address] Jaiden Holcmob Assigned PCP 05/24/20 MD Jayesh [address] [place] [address] documented as of this encounter
--- OUTSIDE RECORDS SUMMARY | 2022-06-15 13:02 | XMS_ITS | Encounter Summary ---
:1945 Author Organization [place] Address [address] [place] [address] Care Team Providers Name Role Phone Chastity Montero MD Unavailable [phone] Johnnie Alcocer MD Unavailable Lucero Stevenson MD Unavailable [phone] Danni Marcus RN Unavailable Unavailable Mtkinsey, Kyle Complex Unavailable Unavailable Svetlana Osman [facility] Unavailable [phone] Lucero Stevenson MD Primary Care Provider [phone] Reason for Visit Reason Onset Date Comments INR Followup 05/20/2019 Encounter Details Date Type Department Care Team Description 05/20/2019 [facility] Doris Agarwal MD INR Followup [place] [address] [facility] [address] [facility] [place] [address] [address] [place] [address] [phone] Social History Tobacco Use Types Packs/Day Years [...] encounter Miscellaneous Notes Telephone Encounter - Brie Sandhu RN - 05/20/2019 3:57 PM RABBET OPERATOR ANTICOAGULATION MANAGEMENT Patient Name: Charlette rBush Date: 05/20/2019 ASSESSMENT /SUBJECTIVE: Today's INR result of 2.6 [...] procedure or cardioversion: No ??? Additional findings: No PLAN: Spoke with Michelle (home care nurse) regarding INR result and instructed: Warfarin Dosing Instructions: Continue your current warfarin dose Instructed patient to follow up no later than: 2 weeks Education provided: No Michelle verbalizes understanding and agrees to warfarin dosing plan. Instructed to call the Anticoagulation Clinic for any changes, questions or concerns. 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] terminal operator current use of 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 [Z79.01] Anticoagulation Episode Summary INR check location: Home Draw Preferred lab: Send INR reminders to: [facility] Comments: 3mg & 10mg tabs - devaughn dose / Interim Home Care qod - Kana [phone] / APPT CARD ONLY Anticoagulation Care Providers Provider Role Specialty Phone number Lucero Stevenson MD Internal Medicine [phone] ET OPERATOR documented in this encounter Plan of Treatment Upcoming Encounters Date Type Specialty Care Team Description 11/15/2022 Virtual Visit Pharm Haylie Gonzalez, [facility] [address] [facility] [address] [place] [id number] (Wo rk) 11/15/2022 Virtual Visit IM/Peds Yane Barraza MD [address] [facility] [address] [place] [phone] (Wo rk) 03/03/2023 Virtual Visit Neurology Erlinda Barber MD [address] [facility] [address] [place] [address] (Wo rk) documented as of this encounter Procedures Procedure Name Priority Date/Time Associated Diagnosis Comme nts INR Routine 05/20/2019 Results for thi s procedure are in the resu lts section. documented in this encounter Results INR (05/20/2019) P athologist Signature INR 2.6 Specimen (Source) Anatomical Location Collection Method / Collectio n Time Received Time / Laterality Volume Blood specimen (specimen) Patient Reported LAB - BLOOD ORDERABLES documented in this encounter Visit Diagnoses Diagnosis 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 embolism terminal operator current use of anticoagulant t herapy documented in this encounter Additional Health Concerns Assessment Noted Time PHQ-9 Depression Total Score: 4 04/12/2019 7:03 AM CDT documented as of this encounter Care Teams Physician Ophthalmologist Relationship Specialty Start Date End Date Lucero Stevenson PCP - General 05/15/19 05/23/19 MD TOÑO Littlejohn [place] [address] [place] [address] Chastity Montero MD Dermatology 09/23/14 [address] [facility] [address] [place], [place] [address] Johnnie Alcocer MD Surgeon General Surgery 03/23/17 [address] [facility] [address] [place], [place] [phone] Lucero Stevenson Assigned PCP 06/17/18 11/09/19 MD TOÑO Littlejohn JESSICA [address] [place] [address] Danni Marcus, CHANDLER Personal Advocate & 01/09/1901/17 Liaison (PAL) Fernando, Ea Complex 04/23/19 Svetlana Osman, Pharmacist Pharmacotherapy 04/23/19 [facility] [address] [place] [address] documented as of this encounter
--- OUTSIDE RECORDS SUMMARY | 2022-06-15 13:02 | XMS_ITS | Encounter Summary ---
:1945 Author Organization [place] Address [address] [place] [address] Care Team Providers Name Role Phone Chastity Montero MD Unavailable [phone] Johnnie Alcocer MD Unavailable Lucero Stevenson MD Unavailable [phone] Danni Marcus RN Unavailable Unavailable Mtm, Ea Complex Unavailable Unavailable Svetlana Osman [facility] Unavailable [phone] Lucero Stevenson MD Primary Care Provider [phone] Doris Lai MD Primary Care Provider Reason for Visit Reason Onset Date Comments Prior Auth - Medication 05/20/2019 Desoximetasone 0 .05% Gel 60 mg -DENIED Encounter Details Date Type Department Care Team Description 05/20/2019 [facility] Nadya Lai MD Prior Auth - Medication Clinic [address] (Desoximetasone 0.05% [address] [place] [address] Gel 60 mg -DENIED) [facility] [place] [address] [address] [place] [address] [phone] Social History Tobacco Use Types Packs/Day Years [...] Telephone Encounter - Jolanta Reddy RN - 05/30/2019 9:46 AM CST Addressed in the my-chart message, closing this encounter. Jolanta Reddy RN Message handled by Nurse Triage. ANALYTICS DEVELOPER Telephone Encounter - Jolanta Reddy RN - 05/23/2019 4:24 PM CST Patient was called. She has tried other classes of cortisones in the past and she was reacting to them and would prefer not to try anything else-she had skin testing done 15 years ago and has not triedanything after. She has reacted to 50% of drugs on the skin test that they tried. She states that she got a call from the pharmacy that they have filled something-she will call them now and send a MC to us with the information. I let patient know we will address her MC tomorrow. Still has some medication from older refills at home to last for along time. Jolanta Reddy RN Message handled by Nurse Triage. ANALYTICS DEVELOPER Telephone Encounter - Doris Lai MD - 05/23/2019 2:15 PM CST Can we call patient to see if she would be willing to try a different topical steroid cream other than the desoximetasone gel? See below for possible options if she is interested. Otherwise we will have to try to fill out a PA for her. Thanks! Doris Lai MD Internal Medicine-Pediatrics ANALYTICS DEVELOPER Telephone Encounter - Mariola Matamoros - 05/23/2019 8:18 AM CST Images from the original note were not included. PRIOR AUTHORIZATION DENIED Medication: Desoximetasone 0.05% Gel 60 mg -DENIED Denial Date: 05/22/2019 Denial Rational: Patient needs to try/fail or have a contraindication to formulary alternatives: Appeal Information: If provider would like to appeal please provide a letter of medical necessity stating why formulary alternatives would not be clinically appropriate for patient and route back to the PA team. ANALYTICS DEVELOPER Telephone Encounter - Mariola Matamoros - 05/22/2019 12:25 PM CST Images from the original note were not included. Central Prior Authorization Team PA Initiation Medication: Desoximetasone 0.05% Gel 60 mg -Initiated Insurance Company: Medicare Blue - Pharmacy Filling the Rx: [id number] - [place], [place] - [address] AT [facility] Filling Pharmacy Filling Pharmacy Fax: Start Date: 05/22/2019 ANALYTICS DEVELOPER Telephone Encounter - Roxi Ty MA - 05/20/2019 3:30 PM WEB ANALYTICS DEVELOPER Prior Authorization Retail Medication Request Medication/Dose: Desoximetasone 0.05% Gel 60 mg ICD code (if different than what is on RX): Dermatitis [L30.9] Previously Tried and Failed: NA Rationale: NA Insurance Name: Medicare Pharmacy Information (if different than what is on RX) Name: Alexander ANALYTICS DEVELOPER documented in this encounter Plan of Treatment Upcoming Encounters Date Type Specialty Care Team Description 11/15/2022 Virtual Visit Pharm Haylie Gnozalez, [facility] [address] [place] [address] (Wo rk) 11/15/2022 Virtual Visit IM/Yane Mathias MD [address] [place] [address] [place] [address] (Wo rk) 03/03/2023 Virtual Visit Neurology Erlinda Barber MD [address] [place] [address] [address] [place] [address] (Wo rk) documented as of this encounter Visit Diagnoses Not on filedocumented in this encounter Additional Health Concerns Assessment Noted Time PHQ-9 Depression Total Score: 4 04/12/2019 7:03 AM CDT documented as of this encounter Care Teams Tenant Coordinator Relationship Specialty Start Date End Date Lucero Stevenson PCP - General 05/15/19 05/23/19 MD Annetta [facility] [address] [place], [place] [phone] Doris Lai MD PCP - General 05/24/19 11/28/[address] [place] [address] [place] [address] Chastity Montero MD Dermatology 09/23/14 [address] [facility] 98 [place], [place] [phone] Johnnie Alcocer MD Surgeon General Surgery 03/23/[address] [place], [place] [phone] Lucero Stevenson Assigned PCP 06/17/18 11/09/19 MD TOÑO Littlejohn [place] [address] [place] [address] Danni Marcus, CHANDLER Personal Advocate & 01/09/1901/17 Liaison (PAL) Fernando, Ea Complex 04/23/19 Svetlana Osman, Pharmacist Pharmacotherapy 04/23/19 [facility] [address] [place] [address] documented as of this encounter
--- OUTSIDE RECORDS SUMMARY | 2022-06-15 13:02 | XMS_ITS | Encounter Summary ---
:1945 Author Organization [employer] [facility] Address [address] [place] [address] Care Team Providers Name Role Phone Chastity Montero MD Unavailable [phone] Johnnie Alcocer MD Unavailable Lucero Stevenson MD Unavailable Danni Marcus RN Unavailable Unavailable Mtm, Ea Complex Unavailable Unavailable Svetlana Osman [facility] Unavailable [phone] Haylie Cheung [facility] Unavailable [phone] Galdino Valdez MD Unavailable Galdino Valdez MD Primary Care Provider Jaiden Holcomb MD Primary Care Provider [phone] Kendall Joseph MD Unavailable Erlinda Barber MD Unavailable Jaiden Holcomb MD Unavailable [phone] Doris Lai MD Primary Care Provider Reason for Visit Reason Comments Other supplies Encounter Details Date Type Department Care Team Description 05/31/2019 [facility] [place] Tovar Other ( supplies) [facility] I, RN [address] [place] [id number] Social History Tobacco Use Types Packs/Day Years [...] this encounter Miscellaneous Notes Telephone Encounter - [place] Tovar I - 05/31/2019 12:07 PM CST Spoke with patient aboult supplies. They were ordered from [facility]. Appears [facility] forwarded order due to has interim home care. Patient will talk to interim this afternoon.Call if any questions. E INSPECTOR documented in this encounter Plan of Treatment Upcoming Encounters Date Type Specialty Care Team Description 11/15/2022 Virtual Visit Pharm Haylie Gonzalez, [facility] [address] [address] [place] [address] (Wo rk) 11/15/2022 Virtual Visit IM/Peds Yane Barraza MD [address] [place] [address] (Wo rk) 03/03/2023 Virtual Visit Neurology Erlinda Barber MD [address] [facility] [address] [place], [place] [address] (Wo rk) documented as of this encounter Visit Diagnoses Not on filedocumented in this encounter Additional Health Concerns Assessment Noted Time PHQ-9 Depression Total Score: 4 04/12/2019 7:03 AM CDT documented as of this encounter Care Teams Insurance Account Representative Relationship Specialty Start Date End Date Galdino Valdez MD PCP - General Family Practice 11/29/19 02/12/20 [address] [place], [place] [phone] Jaiden Holcomb PCP - General Internal Medicine 02/13/2010/03 MD Jayesh [address] [facility] [address] [place] [phone] Doris Lai MD PCP - General 05/24/19 11/28/19 [address] [facility] [address] [place] [phone] Chastity Montero MD Dermatology 09/23/[address] [place] [address] 98 [place], [place] [address] Johnnie Alcocer MD Surgeon General Surgery 03/23/[address] [place], [place] [address] Lucero Stevenson, Assigned PCP 06/17/18 MD TOÑO LOPEZ [address] [place] [phone] Danni Marcus, CHANDLER Personal Advocate & 01/09/1901/17 Liaison (PAL) Kyle King Complex 04/23/19 Svetlana Osman, Pharmacist Pharmacotherapy 04/23/19 [facility] [address] [place] [address] Haylie Cheung, Pharmacist Pharmacist 09/11/19 [facility] [address] [place] [address] Galdino Valdez MD Assigned PCP 11/10/19 05/23/20 [address] [place], [place] [phone] Opal, Assigned Sleep 05/08/20 03/27/21 Kendall Meehan MD Provider [address] [place] [address] Erlinda Barber MD Assigned Neuroscience 05/08/20 01/26/21 [address] [facility] 295 [place] [address] Jaiden Holcomb Assigned PCP 05/24/20 MD Jayesh 909 [place] [address] documented as of this encounter
--- OUTSIDE RECORDS SUMMARY | 2022-06-15 13:02 | XMS_ITS | Encounter Summary ---
:1945 Author Organization [employer] Address [address] [place] [address] Care Team Providers Name Role Phone Chastity Montero MD Unavailable [phone] Johnnie Alcocer MD Unavailable Lucero Stevenson MD Unavailable [phone] Danni Marcus RN Unavailable Unavailable Mtm, Ea Complex Unavailable Unavailable Svetlana Osman [facility] Unavailable [phone] Jonatan Haylieellis Rojas [facility] Unavailable [phone] Galdino [place]dez MD Unavailable Galdino Valdez MD Primary Care Provider Jaiden Holcomb MD Primary Care Provider [phone] Kendall Joseph MD Unavailable Erlinda Barber MD Unavailable Jaiden Holcomb MD Unavailable [phone] Lucero Stevenson MD Primary Care Provider [phone] Doris Lai MD Primary Care Provider Encounter Details Date Type Department Care Team Description 05/15/2019 Communication - [facility] E-VISITS Provider, [facility] Social History Tobacco Use Types Packs/Day Years [...] Description 11/15/2022 Virtual Visit Pharm Haylie Gonzalez, [facility] [address] [place] [address] (Wo rk) 11/15/2022 Virtual Visit [place] [address] [place] [address] [place] [phone] (Wo rk) 03/03/2023 Virtual Visit Neurology Erlinda Barber MD [address] [facility] 295 [place], [place] [address] (Wo rk) documented as of this encounter Visit Diagnoses Not on filedocumented in this encounter Additional Health Concerns Assessment Noted Time PHQ-9 Depression Total Score: 4 04/12/2019 7:03 AM CDT documented as of this encounter Care Teams Sample Tailor Relationship Specialty Start Date End Date Galdino [place] MD PCP - General Family Practice 11/29/19 02/12/20 [address] [place] [address] Jaiden Holcomb PCP - General Internal Medicine 02/13/2010/03 MD Jayesh [address] [facility] [address] [place] [phone] Lucero Stevenson, PCP - General 05/15/19 1 07/23/18 MD TOÑO LOPEZ [address] [place] [phone] Doris Lai MD PCP - General 05/24/19 11/28/19 [address] [facility] [address] [place] [phone] Chastity Montero MD Dermatology 09/23/14 [address] [facility] [address] [place], [place] [phone] Johnnie Alcocer MD Surgeon General Surgery 03/23/17 [address] [facility] [address] [place], [place] [address] Lucero Stevenson, Assigned PCP 06/17/18 MD TOÑO LOPEZ 86[address] [place], [place] [phone] Danni Marcus, CHANDLER Personal Advocate & 01/09/1901/17 Liaison (PAL) Fernando, Ea Complex 04/23/19 Svetlana Osman, Pharmacist Pharmacotherapy 04/23/19 [facility] [address] [place] [address] Haylie Cheung, Pharmacist Pharmacist 09/11/19 [facility] [address] [place], [place] [phone] Galdino [place] MD Assigned PCP 11/10/19 05/23/20 [address] [place], [place] [phone] Opal, Assigned Sleep 05/08/20 03/27/21 Kendall Meehan MD Provider [address] [place], [place] [phone] Erlinda Barber MD Assigned Neuroscience 05/08/20 01/26/21 [address] [facility] 295 [place] [address] Jaiden Holcomb Assigned PCP 05/24/20 MD Jayesh 909 [place] [address] documented as of this encounter
--- OUTSIDE RECORDS SUMMARY | 2022-06-15 13:02 | XMS_ITS | Encounter Summary ---
:1945 Author Organization [facility] Address [address] [place] [address] Care Team Providers Name Role Phone Chastity Montero MD Unavailable [phone] Johnnie Alcocer MD Unavailable Lucero Stevenson MD Unavailable Danni Marcus RN Unavailable Unavailable Mtm, Ea Complex Unavailable Unavailable Svetlana Osman [facility] Unavailable [phone] Haylie Cheung [facility] Unavailable [phone] Galdino [place]dez MD Unavailable Galdino Valdez MD Primary Care Provider Jaiden Holcomb MD Primary Care Provider [phone] Kendall Joseph MD Unavailable Erlinda Barber MD Unavailable Jaiden Holcomb MD Unavailable Doris Lai MD Primary Care Provider Reason for Visit Reason Comments Consult pt states open wound is leak ing same or more. pt states wound has decreased significantly over the 1.5 y ears of having it. noted no current changes since visit with referring provide r. ciliax fluid retention. been on cipro and clinda separately before and tolerated Encounter Details Date Type Department Care Team Description 06/04/2019 Office Visit - [facility], Other ch ronic osteomyelitis, unspecified site (H); [facility] Mahamed Miranda MD Morbid obesity (H); [address] [facility] INFECTIOUS Non-hea ling surgical wound, initial encounter Street [address] [facility] [place], [place] [address] [facility] [address] [facility] [phone] [place] [address] Social History Tobacco Use Types Packs/Day Years [...] Sign Reading Time Taken Comments Blood Pressure 144/88 06/04/2019 10:07 AM [employer] ASSEMBLER Pulse 76 06/04/2019 8:59 AM COMMER[employer] FIXTURE ASSEMBLER Temperature 36.4 ??C (97.6 ??F) 06/04/2019 8:59 AM COMMER[employer] L[employer] FIXTURE ASSEMBLER Respiratory Rate - - Oxygen Saturation - - Inhaled Oxygen Concentration - - Weight 153.3 kg (338 lb) 06/04/2019 8:59 AM COMMER[employer] L[employer] FIXTURE ASSEMBLER Height - - Body Mass Index 52.94 05/15/2019 10:08 AM CDT documented in this encounter Progress Notes Ruth John MD - 06/04/2019 9:00 AM CST [place] [facility] new patient note.. Name: Charlette Brush : 1945 PCP: Doris Lai MD DOS: 06/04/19 CC: Referred to ID clinic for concern for osteomyelitis HPI/Interval History: Charlette Brush is a 74 y.o. female with the history of morbid obesity, necrotizing fasciitis status [place] [facility] [place] who is in ID clinic for nonhealing left ischial pressure ulcer with osteomyelitis. Since her surgery on 10/28/2018, the patient has always had a wound. According to her sister the wound was very large at the beginning but has decreased in size but never healed. She has constant godwin drainage and needs dressing changes every 36 hours. If the dressing change does not happen at 36 hours, she starts to leak. She was seen recently by her primary and was given a 10-day course of p.o. Cipro and p.o. clindamycin from 05/27 through 06/05. On day 8 of the combination antibiotic therapy, the patient noted a rash on her back, thighs, upper extremities. The rash was pruritic.She denies any fever, chills, night sweats. She has no cultures from this wound. On 05/15/2019, she was seen in wound clinic and an MRI was done on 05/24/2019. MRI suggestive of osteomyelitis. She is currently not on any antibiotics. PMH: Past Medical History: Diagnosis Date ??? [...] Patient has appointment with Retina Specialist at [facility] on 01/11. 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 ??? Morbid obesity [...] Referral placed for Dr. Kajal Huggins at [facility] in [place] per patient request. She has contact i [...] debridement left buttocks Social History/Family History: No smoking. No drug. Family history of celiac disease. Allergies: Allergies Allergen Reactions ??? Cephalexin ??? Ciprofloxacin Developed rash while on Cipro and Clindamycin ??? Clindamycin Developed rash while taking Clindamycin and Cipro ??? Lanolin ??? Lisinopril ??? Mupirocin ??? Neomycin ??? Penicillins Medications: Current Outpatient Medications on File Prior to Visit Medication Sig Dispense Refill ??? acetaminophen (TYLENOL) [...] tablet Take 500 mg by mouth. ??? losartan (COZAAR) 100 MG tablet Take 100 mg by mouth daily. ??? idvagzfueidd-tbuaplcx-reixmg (CEROVITE SENIOR) tablet Take 1 tablet by [...] findings in the HPI. Exam VS: Vitals: 06/04/19 1007 BP: 144/88 Pulse: Temp: Gen: Pleasant in no acute distress. HEENT: [...] and person. Cranial nerves grossly intact. Labs: Reviewed. Imaging: MR Pelvis With Without Contrast (Order [id number]) Imaging Date: 05/24/2019 Department: [facility] MRI Released By: Hallie Scanlon Authorizing: Patience Toussaint NP Study Result EXAM: MRI PELVIS WITHOUT AND WITH IV CONTRAST LOCATION: [facility] DATE/TIME: 05/24/2019 12:03 PM ?? INDICATION: [...] MRI results, this is most likely osteomyelitis. We obtained cultures today to guide antibiotic choice. 5. Multiple antibiotic allergy including to Cipro, Clinda, penicillin, cephalexin. This will limit antibiotic choices. Recommendations: -CBC/Diff, CMP, CRP, Sed Rate -Wound cultures. -Once the cultures are finalized, we will talk about IV antibiotic. Regimen will depend on the culture results. -Follow up on 06/11 at 11:15 to discuss lab results and treatment plan. -Primary team to consider celiac disease work-up if deemed necessary/appropriate. -Weight loss will help. Discussed with the patient, sister. 60 minutes of total care with greater than 50% iegj-sc-xvuv with the patient. [facility]a [facility] Office . ERCIAL LIGHT FIXTURE ASSEMBLER documented in this encounter Miscellaneous Notes Patient Instructions - HE - Ruth John MD - 06/04/2019 9:00 AM COMMER[employer] FIXTURE ASSEMBLER Thank you for coming today. Given how long you have had this wound and the amount of drainage, I suspect you have infection of the bone. The MRI is suggestive of bone infection. Plan: -CBC/Diff, CMP, CRP, Sed Rate -Wound cultures. -Once the cultures are finalized, we will talk about IV antibiotic. Regimen will depend on the culture results. -Follow up on 06/11 at 11:15 to discuss lab results and treatment plan. Rafa John MD ERCIAL LIGHT FIXTURE ASSEMBLER documented in this encounter Plan of Treatment Upcoming Encounters Date Type Specialty Care Team Description 11/15/2022 Virtual Visit Haylie Wakefield, [facility] [address] [facility] [place] [address] (Wo rk) 11/15/2022 Virtual Visit IM/Peds Yane Barraza MD [address] [facility] [place] [address] (Wo rk) 03/03/2023 Virtual Visit Neurology Erlinda Barber MD [address] [place] [address] [facility] [address] [place] [address] (Wo rk) documented as of this encounter Procedures Procedure Name Priority Date/Time Associated Diagnosis Comme nts AEROBIC BACTERIAL Routine 06/04/2019 10:15 AM Res ults for this CULTURE ROUTINE COMM[employer] FIXTURE ASSEMBLER procedure ar e in the results section. documented in this encounter Results (ABNORMAL) Swab Aerobic Bacterial Culture Routine (06/04/2019 10:15 AM COMMERCIAL L[employer] FIXTURE ASSEMBLER) [facility] Method Time Signature Culture DIPHTHEROIDS (A) 06/07/2019 [facility] 2:52 PM COMMERCIAL LIGHT FIXTURE ASSEMBLER [facility] Comment: 3+ Diphtheroids Culture ENTEROCOCCUS FAECALIS (A) 06/07/2019 2:52 PM COMMERCIAL LIGHT FIXTURE ASSEMBLER [facility] Comment: 2+ Enterococcus faecalis Culture PROTEUS MIRABILIS (A) 06/07/2019 2:52 PM COMMERCIAL LIGHT FIXTURE ASSEMBLER [email or web address] Comment: 2+ Proteus mirabilis Gram Stain 1+ Polymorphonuclear 06/07/2019 2:52 PM [facility] Result leukocytes [facility] BOYSTeramindST. LUKE'S HOSPITALFervent Pharm[facility] LABORATORY Gram Stain 2+ Gram positive cocci in 06/07/2019 2: 52 PM [facility] Result pairs COMMERCIAL LIGHT FIXTURE ASSEMBLER [facility] Gram Stain 1+ Gram positive bacilli, 06/07/2019 2: 52 PM [facility] Result diphtheroid like COMMERCIAL LIGHT FIXTURE ASSEMBLER [facility]DDark Oasis StudiosS LABORATORY Specimen Anatomical Collection Method Collection Time Receive d Time (Source) Location / / Volume Laterality Swab (specimen) SPECIMEN FROM 06/04/2019 10:15 019 8:29 WOUND / Unknown AM COMMERCIAL [employer] FIXTURE ASSEMBLER PM COMM[employer] FIXTURE ASSEMBLER Organism Antibiotic Method Susceptibility Enterococcus faecalis Ampicillin LOW 2: Suscept ible Comment: M86.60 Proteus mirabilis Amikacin LOW <=8: Susceptib le Proteus mirabilis Amoxicillin/Clavulanate LOW 8/4: S usceptible Proteus mirabilis Ampicillin LOW >16: Resistant Proteus mirabilis Cefazolin LOW 8: Susceptible Proteus mirabilis Cefepime LOW <=1: Susceptib le Proteus mirabilis Ceftriaxone LOW <=1: Susceptib le Proteus mirabilis Ciprofloxacin LOW >2: Resistant Proteus mirabilis Gentamicin LOW >8: Resistant Proteus mirabilis Levofloxacin LOW >4: Resistant Proteus mirabilis Piperacillin/Tazobactam LOW <=2/4: Susceptible Comment: This is an appended report. These results have been appended to a previously final verified re port. Proteus mirabilis Tetracycline LOW >8: Resistant Proteus mirabilis Tobramycin LOW >8: Resistant Proteus mirabilis Trimeth/Sulfa LOW >2/38: Resista nt Comment: M86.60 Ruth John MD LAB - MICRO GENERAL ORDERABL ES Performing Organization Address City/State/ZIP [place] [address] [address] [facility] documented in this encounter Visit Diagnoses Diagnosis Other chronic osteomyelitis, unspecified site (H) Morbid obesity (H) Morbid obesity Non-healing surgical wound, initial enco unter documented in this encounter Additional Health Concerns Assessment Noted Time PHQ-9 Depression Total Score: 4 04/12/2019 7:03 AM CDT documented as of this encounter Care Teams Asbestos Surveyor Relationship Specialty Start Date End Date Galdino Valdez MD PCP - General Family Practice 11/29/19 02/12/20 [address] [place] [address] Jaiden Holcomb PCP - General Internal Medicine 02/13/2010/03 MD Jayehs [address] [place] [address] [place] [phone] Doris Lai MD PCP - General 05/24/19 11/28/[address] [place] [address] [place] [phone] Chastity Montero MD Dermatology 09/23/14 [address] [facility] [address] [place] [address] Johnnie Alcocer MD Surgeon General Surgery 03/23/[address] [place] [address] Lucero Stevenson, Assigned PCP 06/17/18 MD TOÑO LOPEZ [address] [place] [address] Danni Marcus, CHANDLER Personal Advocate & 01/09/1901/17 Liaison (PAL) [place], Ea Complex 04/23/19 Svetlana Osman, Pharmacist Pharmacotherapy 04/23/19 [place] [address] [place], [place] [phone] Haylie Cheung, Pharmacist Pharmacist 09/11/[address] [place] [phone] Galdino Valdez MD Assigned PCP 11/10/19 05/23/20 [address] [place] [address] Opal, Assigned Sleep 05/08/20 03/27/21 Kendall Meehan MD Provider [address] [place], [place] [phone] Erlinda Barber MD Assigned Neuroscience 05/08/20 01/26/21 [address] [facility] [address] [place] [address] Jaiden Holcomb Assigned PCP 05/24/20 MD Jayesh 909 [place] [address] documented as of this encounter
--- OUTSIDE RECORDS SUMMARY | 2022-06-15 13:02 | XMS_ITS | Encounter Summary ---
:1945 Author Organization [place] Address [address] [place] [address] Care Team Providers Name Role Phone Chastity Montero MD Unavailable [phone] Johnnie Alcocer MD Unavailable Lucero Stevenson MD Unavailable [phone] Danni Marcus RN Unavailable Unavailable Mtm, Ea Complex Unavailable Unavailable Svetlana Osman [facility] Unavailable [phone] Haylie Cheung [facility] Unavailable [phone] Galdino Valdez MD Unavailable Galdino Valdez MD Primary Care Provider Jaiden Holcomb MD Primary Care Provider [phone] Kendall Joseph MD Unavailable Erlinda Barber MD Unavailable Jaiden Holcomb MD Unavailable [phone] Lucero Stevenson MD Primary Care Provider Doris Lai MD Primary Care Provider Ruth John MD Unavailable Kajal Huggins MD Unavailable Patience Toussaint NP Unavailable Brook Sánchez MD Unavailable Yane Barraza MD Primary Care Provider Osmar Kidd MD Unavailable Erlinda Barber MD Unavailable Yane Barraza MD Primary Care Provider Lenore Alcala MD Unavailable Haylie Cheung [facility] Unavailable [phone] Gaye Patrick RN Unavailable Unavailable Kenya Abernathy APRN [employer] Unavailable [phone] Hayley German OD Unavailable [phone] Haylie Cheung [facility] Unavailable [phone] Reason for Visit Reason Onset Date Comments alternative requested 05/17/2019 fluocinonidegel Encounter Details Date Type Department Care Team Description [facility] Yarelis Littlejohn MD (fluocinonidegel) [address] [place] [address] [place] [address] [phone] Social History Tobacco Use Types Packs/Day Years [...] this encounter Miscellaneous Notes Telephone Encounter - Lucero Stevenson MD - 05/17/2019 3:57 PM CDT Script sent. Lucero Stevenson MD Telephone Encounter - Niharika Cardoso RN - 05/17/2019 2:48 PM CDT Do you want to change medication or try a prior auth? Alee Victoria RN BSN [facility] [phone] Telephone Encounter - Edward Jack - 05/17/2019 1:35 PM CDT Pharmacy note: Drug is not covered by Pt plan ([employer]). Preferred alternative is fluocinonidegel. documented in this encounter Plan of Treatment Upcoming Encounters Date Type Specialty Care Team Description 11/15/2022 Virtual Visit Pharm D Haylie Cheung, [facility] [address] [place] [address] (Wo rk) 11/15/2022 Virtual Visit IM/Peds Yane Barraza MD [address] [facility] [place] [address] (Wo winter) 03/03/2023 Virtual Visit Neurology Erlinda Barber MD [address] [facility] 295 [place], [place] [address] (Wo rk) documented as of this encounter Visit Diagnoses Diagnosis Dermatitis Contact dermatitis and other eczema, due to unspecified cause documented in this encounter Additional Health Concerns Assessment Noted Time PHQ-9 Depression Total Score: 4 04/12/2019 7:03 AM CDT documented as of this encounter Care Teams Assistant Boys Track Coach Relationship Specialty Start Date End Date Galdino Valdez MD PCP - General Family Practice 11/29/19 02/12/20 [address] [place], [place] [id number] Jaiden Holcomb PCP - General Internal Medicine 02/13/2010/03 MD Jayesh [address] [place] [address] [place] [phone] Lucero Stevenson, PCP - General 05/15/19 1 07/23/18 MD TOÑO LOPEZ [address] [place] [id number] Doris Lai MD PCP - General 05/24/19 11/28/[address] [place] [address] [place] [id number] Yane Barraza MD PCP - General Internal Medicine 10/04/21 12/07/[address] [place] [address] [address] [place] [phone] Yane Barraza MD PCP - General Internal Medicine 12/08/[address] [place] [address] [place] [id number] Chastity Montero MD Dermatology 09/23/14 MD Gurpreet [facility] 98 [place], [place] [address] Johnnie Alcocer MD Surgeon General Surgery 03/23/[address] [place], [place] [phone] Lucero Stevenson, Assigned PCP 06/17/18 MD TOÑO LOPEZ [address] [place], [place] [phone] Danni Marcus, CHANDLER Personal Advocate & 01/09/1901/17 Liaison (PAL) Fernando, Ea Complex 04/23/19 Svetlana Osman, Pharmacist Pharmacotherapy 04/23/19 [facility] [address] [place], [place] [phone] Haylie Cheung, Pharmacist Pharmacist 09/11/19 [facility] [address] [place], [place] [phone] Galdino Valdez MD Assigned PCP 11/10/19 05/23/20 [address] [place], [place] [id number] Opal, Assigned Sleep 05/08/20 03/27/21 Kendall Meehan MD Provider [address] [place], [place] [address]E [address]ESSI [address] [place], [place] [address] Erlinda Barber MD Assigned Neuroscience 05/08/20 01/26/21 420 [facility] 295 [place] [address] Jaiden Holcomb Assigned PCP 05/24/20 MD Jayesh 909 [place] [address] Ruth John MD Assigned Infectious 01/29/21 07/03/21 [facility] INFECTIOUS Disease Provider [facility] [address] [facility] YESSI [address] [place], [place] [id number] Kajal Huggins MD Assigned Neuroscience 01/29/21 10/23/21 [address] [facility] [address] Provider [address] [place], [place] [id number] Patience Toussaint NP Assigned Surgical 01/29/21 02/11/22 [address] [facility] Provider [address] [place], [place] [id number] Brook Sánchez MD Assigned Infectious 07/04/21 [address] [facility] [address] Disease Provider [place], [place] [address] Osmar Kidd MD Assigned Sleep 09/26/[address]I [address] [place] [address] Erlinda Barber MD Assigned Neuroscience 10/24/[address] [facility] [address] Provider [place], [place] [address] Lenore Alcala MD Assigned Heart and 12/18/21 01/21/[address] [place]I Vascular Provider [address] [place] [address] Haylie Cheung, Assigned MTM 01/08/22 [facility] Pharmacist [address] [place] [address] [place] [phone] Gaye Patrick, RN Personal Advocate & 01/18/22 Liaison (PAL) Kenya Abernathy APRN Assigned Heart and 01/22/22 [employer] Vascular Provider [address] [place] [phone] Hayley German, Assigned Surgical 02/12/22 OD Provider [address] [facility] [place] [phone] Haylie Cheung, Assigned MTM 04/13/22 [facility] Pharmacist [address] [place], [place] [address] documented as of this encounter
--- OUTSIDE RECORDS SUMMARY | 2022-06-15 13:02 | XMS_ITS | Encounter Summary ---
:1945 Author Organization [place] Address [address] [place] [address] Care Team Providers Name Role Phone Chastity Montero MD Unavailable [phone] Johnnie Alcocer MD Unavailable Lucero Stevenson MD Unavailable Danni Marcus RN Unavailable Unavailable Mtm, Ea Complex Unavailable Unavailable Svetlana Osman [facility] Unavailable [phone] Lucero Stevenson MD Primary Care Provider [phone] Reason for Visit Reason Comments Medication Refill FEROSUL 325 (65 Fe) MG table t Encounter Details Date Type Department Care Team Description 05/20/2019 Refill [facility] Lucero Stevenson cation Refill Clinic Yarelis Littlejohn MD (FEROSUL 325 (65 Fe) MG 59[address] [facility] [address] [place] [address] [place] [address] [phone] Social History Tobacco Use Types Packs/Day Years [...] 05/03/2021 organizations such as mosque groups, unions, fraCorso or athletic groups, or school groups? How [...] encounter Miscellaneous Notes Telephone Encounter - Patience [place] - 05/20/2019 10:10 AM CST Requested Prescriptions Pending Prescriptions Disp Refills ??? FEROSUL 325 (65 Fe) MG tablet [Pharmacy Med Name: FERROUS SULFATE 325MG (5GR) TABS] Last Written Prescription Date: 06/01/2018 Last Fill Quantity: 100, # refills: 3 Last office visit: 04/23/2019 with prescribing provider: Doris Lai Future Office Visit: 100 tablet 3 Sig: TAKE 1 TABLET(325 MG) BY MOUTH DAILY WITH BREAKFAST Iron Supplements Passed - 05/20/2019 5:08 AM Passed - Patient is 12 years of age or older Passed - Recent (12 mo) or future (30 days) visit within the authorizing provider's specialty Patient has had an office visit with the authorizing provider or a provider within the authorizing providers department within the previous 12 mos or has a future within next 30 days. See Patient Info tab in inbasket, or Choose Columns in Meds & Orders section of the refill encounter. Passed - Hgb OR Hct on record within the past 12 mos. Patient need only have had a HGB or HCT on file in the past 12 mos. That result does not need to benormal. Recent Labs Lab Test 03/16/19 0807 03/15/19 1724 01/07/19 1508 HGB 12.7 14.3 14.4 Recent Labs Lab Test 03/16/19 0807 03/15/19 1724 01/07/19 1508 HCT 37.6 42.0 43.5 Please verify a HGB or HCT has been checked SINCE THE LAST DOSE CHANGE. Passed - Medication is active on med list CONCILIATOR documented in this encounter Plan of Treatment Upcoming Encounters Date Type Specialty Care Team Description 11/15/2022 Virtual Visit Pharm Haylie Gonzalez, [facility] [address] [place] [address] (Wo rk) 11/15/2022 Virtual Visit IM/Marquitas Yane Barraza MD [address] [facility] [place] [address] (Wo rk) 03/03/2023 Virtual Visit Neurology Erlinda Barber MD [address] [place] [address] 295 [place] [address] (Wo rk) documented as of this encounter Visit Diagnoses Diagnosis Iron deficiency anemia, unspecified iron deficiency anemia type documented in this encounter Additional Health Concerns Assessment Noted Time PHQ-9 Depression Total Score: 4 04/12/2019 7:03 AM CDT documented as of this encounter Care Teams Preventative Maintenance Technician Relationship Specialty Start Date End Date Lucero Stevenson PCP - General 05/15/19 05/23/19 MD TOÑO Littlejohn [address] [address] Chastity Montero MD Dermatology 09/23/[address] [place] [address] 98 [place], [place] [address] Johnnie Alcocer MD Surgeon General Surgery 03/23/17 [address] [facility] 300 [place], [place] [address] Lucero Stevenson Assigned PCP 06/17/18 11/09/19 MD TOÑO Littlejohn [address] [place] [phone] Danni Marcus, CHANDLER Personal Advocate & 01/09/1901/17 Liaison (PAL) Fernando, Ea Complex 04/23/19 Svetlana Osman, Pharmacist Pharmacotherapy 04/23/19 [facility] [address] [place], [place] [phone] documented as of this encounter
--- OUTSIDE RECORDS SUMMARY | 2022-06-15 13:02 | XMS_ITS | Encounter Summary ---
:1945 Author Organization [place] Address [address] [place] [address] Care Team Providers Name Role Phone Chastity Montero MD Unavailable [phone] Johnnie Alcocer MD Unavailable Lucero Stevenson MD Unavailable [phone] Danni Marcus RN Unavailable Unavailable Mtm, Ea Complex Unavailable Unavailable [facility] Unavailable [phone] Jonatan Haylieellis Rojas [facility] Unavailable [phone] Galdino Valdze MD Unavailable Galdino Valdez MD Primary Care Provider Jaiden Holcomb MD Primary Care Provider [phone] Kendall Joseph MD Unavailable Erlinda Barber MD Unavailable Jaiden Holcomb MD Unavailable [phone] Lucero Stevenson MD Primary Care Provider [phone] Doris Lai MD Primary Care Provider Reason for Visit Reason Comments Advice Only buttocks ulcer Encounter Details Date Type Department Care Team Description 05/15/2019 Office Visit - [facility] Patience Toussaint Pressu re injury of left ischium, stage 4 (H); [facility] BUSINESS SYSTEMS LEAD Morbid obesity with BMI of 50.0-59.9, ad ult (H); [place] [address] [facility] [address] [place] [address] [phone] Social History Tobacco Use Types Packs/Day Years [...] Sign Reading Time Taken Comments Blood Pressure 136/80 05/15/2019 10:08 AM CDT Pulse 68 05/15/2019 10:08 AM CDT Temperature 36.4 ??C (97.5 ??F) 05/15/2019 10:08 AM CDT Respiratory Rate 18 05/15/2019 10:08 AM CDT Oxygen Saturation - - Inhaled Oxygen Concentration - - Weight 153.6 kg (338 lb 9.6 oz) 05/15/2019 10:08 AM CDT Height 170.2 cm (5' 7) 05/15/2019 10:08 AM CDT Body Mass Index 53.03 05/15/2019 10:08 AM CDT documented in this encounter Progress Notes Patience Toussaint NP - 05/15/2019 10:00 AM CDT Images from the original note were not included. Progress Notes by Patience Toussaint NP at 05/15/2019 10:00 AM Author: Patience Toussaint NP Service: -- Author Type: Nurse Practitioner Filed: 05/15/2019 5:46 PM Encounter Date: 05/15/2019 Status: Signed Business Education Instructor: Patience Toussaint NP (Nurse Practitioner) [facility] Consult Note Date of Service: 05/15/2019 Requesting Provider: Dr. Lucero Stevenson Chief Complaint: left buttock ulcer History of Present Illness: Charlette Brush is being seen at [facility] today regarding left buttock ulcer. They arrive to the clinic today with sister Omid. The patient reports that the wound developed 1.5 years ago. She fell 10/15/17; she was down on the ground 3 days; she was hospitalized; developed necrotizing fascitis; she required x2 I&Ds, and then sent to TCU; Now at home byherself with home care coming out every 1-2 days; also SOCIAL WORK ASSISTANT care daily 3 hours per day. No issues with incontinence; rare occurrence with incontinence. Uses walker for mobility and stability. Trying to walk more; using stationary bike 30-60 minutes daily. Was currently/previously using bordered foam candace ssings; multiple; arrives today with these saturated with drainage. Denies use of wound vac in the past; but then later states she did try this at home and only lasted 4 hours and failed due to movement and using the bathroom. Reports pain of 0/10 in the wound; currently using nothing for pain. Deniesany fevers, chills, or generalized ill feeling. Has several antibiotic allergies and sensitives; sherecently was started on 2 antibiotics and developed n/v/d. Denies history of cancer. Sleeps in a hospital bed with low air loss mattress; she has to sleep on her back due to CEFERINO and cpap use. She triesto limit her time up in a directors chair; uses a 4 foam/gel pad; obtained from [employer]; paid portion oop; this cushion is 1 year in age. Pt still has their uterus and ovaries, they deny any abnormal vaginal bleeding; she had work up of cervix concern this was benign. I personally reviewed outside imaging, lab work, and progress noted through Care Everywhere and outside records. Last MRI done 06/03 on the pelvis no evidence of osteomyelitis at that time. At the time of the fall 1.5years ago she weighed 410; she is down to 338 pounds; she vacillates +/- 10 pounds. She states she has lymphedema; uses lymphedema pumps daily for 60 minutes; uses circaid wraps for compression and is good about this. She was previously told she had anemia; she was previously on iron; they recently com pleted iron studies and this was normalized and her iron was d/c. She tries to take one protein shake per day or protein bar with her morning medications. Takes daily MVI. Review of Systems: Constitutional: negative for fever, chills or night sweats EENTM: negative for glasses; negative platinum GI: negative for nausea/vomiting; negative for constipation negative diarrhea; negative for fecal incontinence positive weight loss 80-90 pounds over 1.5 years : negative dysuria, negative incontinence MS: patient is ambulatory; does use assistive devices Cardiac: negative Respiratory: negative SOB Endocrine: negative diabetes Psych: negative depression/anxiety Past Medical History: Past Medical History: Diagnosis Date ? [...] Patient has appointment with Retina Specialist at [facility] on 01/11. 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 ? Morbid obesity (H) [...] [facility] in [place] per patient request. She has contact i [...] and confirm.) ? Weakness left lower limb Surgical History: Past Surgical History: Procedure Laterality Date ? cholectomy ? NERVE REPAIR left ? sciatic nerve transection ? TONSILLECTOMY ? wound irrigation and debridement posterior upper thigh ? wound irrigation and debridement left buttocks Medications: Current Outpatient Medications: ? acetaminophen (TYLENOL) [...] mg by mouth., Disp: , Rfl: ? losartan (COZAAR) 100 MG tablet, Take 100 mg by mouth daily., Disp: , Rfl: ? animfauigorz-jjiierct-bincnb (CEROVITE SENIOR) tablet, Take 1 tablet by mouth at bedtime., Disp: ,Rfl: ? nystatin (MYCOSTATIN) cream, Apply topically., Disp: , Rfl: ? sodium hypochlorite (DAKIN'S, HALF-STRENGTH,) external solution, Irrigate with as directed daily.,Disp: , Rfl: ? warfarin (COUMADIN) 10 MG tablet, Take 10 mg by mouth daily., Disp: , Rfl: Allergies: Allergies Allergen Reactions ? Cephalexin ? Ciprofloxacin Developed rash while on Cipro and Clindamycin ? Clindamycin Developed rash while taking Clindamycin and Cipro ? Lanolin ? Lisinopril ? Mupirocin ? Neomycin ? Penicillins Family history: Family History Problem Relation Age of Onset ? Hypertension Mother ? Transient ischemic attack Mother ? Thyroid disease Mother Social History: Social History Socioeconomic History ? Marital status: [...] file Gets together: Not on file Attends rastafarian service: Not on file Active member of [...] Social History Narrative ? Not on file Physical Exam Vitals: Blood pressure 136/80, pulse 68, temperature 97.5 ??F (36.4 ??C), resp. rate 18, height 5' 7 (1.702 m), weight (!) 338 lb 9.6 oz (153.6 kg). General: This is a 74 y.o. female who appears their reported age, not in acute distress Head: normocephalic, Atraumatic; wearing glasses; non-icteric sclera; no exudate; mild hearing loss Respiratory: Clear throughout all lung alicea; unlabored breathing; no cough Cardiac: Regular, Rate and Rhythm, no murmurs appreciated Skin: Uniformly warm and dry Psych: Alert and oriented x4; calm and cooperative throughout exam Abdomen: Normal bowel sounds. Soft, symmetric, no guarding or rigidity, nontender with palpation. Noorganomegaly or masses palpated. Buttocks: left ischial tuberosity with full thickness ulcer; into the muscle; no overt bone exposed but close; surrounding maceration; there is superficial breakdown and skin stripping from adhesive; copious serous drainage no odor Circumferential volume measures: No flowsheet data found. Ulceration(s)/Wound(s): VASC Wound 05/15/19 Buttocks (Active) Pre Size Length 3.5 05/15/2019 10:00 AM Pre Size Width 5 05/15/2019 10:00 AM Pre Size Depth 6 05/15/2019 10:00 AM Pre Total Sq cm 17.5 05/15/2019 10:00 AM Laboratory studies: Lab Results Component Value Date SEDRATE 35 (H) 04/19/2018 Lab Results Component Value Date CREATININE 0.48 (L) 02/01/2018 No results found for: HGBA1C Lab Results Component Value Date BUN 15 02/01/2018 Lab Results Component Value Date ALBUMIN 2.5 (L) 04/19/2018 No results found for: [id number] Impression: 1. Pressure injury of left ischium, stage 4 (H) MR Pelvis With Without Contrast 2. Morbid obesity with BMI of 50.0-59.9, adult (H) MR Pelvis With Without Contrast 3. Hypoalbuminemia MR Pelvis With Without Contrast 05/15/2019 left IT Assessment/Plan: 1. Debridement: After discussion of risk [...] decrease edge senescence. Total excisional debridement was 17.5 sq cm from the epidermis/dermis area, into the subcutaneous tissue and into the muscle/fascia with a depth of 6 cm. 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 Measures were unchanged after debridement. 2. Treatment: wound treatment will include irrigation and dressings to promote autolytic debridementwhich will include: wound vac did not stay in place; difficult application due to weight; body habitus and location; will obtain MRI to look for osteomyelitis; will start irrigating the wound with dilute hibiclens; and tucking aquacel ag rope into the wound; covering with super absorbant pad we applied Vliwasorb adhesive today; will need skin prep to periwound; will need daily wound cares. Will see how she does with these wound cares if no change will consider referral to Dr. Steward for flap closure 3. Edema. Not an issue; wearing her velcro; using lymphedema pump 4. Offloading: she has x2 gel cushion and low air loss mattress; repositioning every hour; this was reinforced and encouraged today 5. Nutrition: focus on protein; she is taking adequate protein and taking supplements; encouraged tocontinue Patient to return to clinic in 4 week(s) for re-evaluation. They were instructed to call the clinic sooner with any further questions or concerns. Answered all questions. Patience Toussaint DNP, RN, VOCATIONAL TECHNICAL EDUCATION DIRECTOR, [facility]OCN [facility] [phone] This note was electronically signed by Patience Toussaint documented in this encounter Miscellaneous Notes Letter - Historical Provider - 12/31/2020 12:59 PM CDT Letter by Patience Toussaint NP at Author: Patience Toussaint NP Service: -- Author Type: -- Filed: Encounter Date: 05/15/2019 Status: Signed 05/15/2019 [facility] Fax: Wound Dressing Rx and Order Form Customer Service: Order Status: New Order Verbal: Celina Patient Info: Name: Charlette Brush : 1945 Address: [address] [place] [address] Insurance Info: Primary: Payor: MEDICARE / Plan: MEDICARE A AND B / Product Type: Medicare / Secondary: BLUE [place] [id number] - (Medicare) Physician Info: Name: Patience Toussaint NP Dept Address/Phones: [address] [place] [address], [address] [facility] [address] Lymphedema circumferential measurements (in cm): [...] BMI of 50.0-59.9, adult (H) ? Hypoalbuminemia VASC Wound 05/15/19 Buttocks (Active) Pre Size Length 3.5 05/15/2019 10:00 AM Pre Size Width 5 05/15/2019 10:00 AM Pre Size Depth 6 05/15/2019 10:00 AM Pre Total Sq cm 17.5 05/15/2019 10:00 AM Drainage: Moderate Thickness: Full Duration of Need: 30 Days Supply: 30 Start Date: 05/15/19 Starter Kit: Ancillary Kit (saline, gloves, gauze) Qualifying wound/Debridement Yes Dressing Type Brand Size Number of pieces Frequency of change Primary Aquacel AG rope with strengthening fibers .39''x18'' 2 boxes Daily Kerramax bordered foam adhesvie 6''x6'' 30 Daily Square gauze 4''x4'' 2 loafs Daily Note: If total out of pocket is more than $50.00 please contact the patient before processing order. OK to forward to covered supplier. Electronically Signed Physician: Patience Toussaint NP Date: 05/15/2019 Patient Instructions - HE - Patience Toussaint NP - 05/15/2019 10:00 AM CDT Images from the original note were not included. Patient Instructions by Patience Toussaint NP at 05/15/2019 10:00 AM Author: Patience Toussaint NP Service: -- Author Type: Nurse Practitioner Filed: 05/15/2019 11:09 AM Encounter Date: 05/15/2019 Status: Addendum Business Education Instructor: Celina Wells CMA (Chief Deputy Sheriff) Related Notes: Original Note by Patience Toussaint NP (Nurse Practitioner) filed at 05/15/2019 11:00AM We will get you scheduled for MRI to look for bone infection or osteomyelitis Today we ordered supplies for you from [facility]. To reorder supplies or if you have any questions aboutyour order please call [facility] Customer Service at Wound Care Instructions Every 1-2 days home care will Irrigate your left ischial tuberosity wound(s) with dilute hibiclens (30cc in 500cc NS) Pat Dry Apply skin prep to skin surrounding the wound Apply aquacel ag rope into/onto the wounds (today in clinic we will use silvercel) Cover with KerraMax bordered foam (today in clinic we will use It is ok to get your wound [...] than this please contact our office at [phone]. Patience Toussaint DNP, RN, VOCATIONAL TECHNICAL EDUCATION DIRECTOR, [facility] [phone] You will need to reposition frequently; keep direct pressure off of the wound or reddened area Reposition Every 1-2 hours while in bed; left, right; supine; repeat Reposition Every 15 minutes while up in a chair; chair push ups Stand every 30 minutes while in a chair if able Obtain a seat cushion; can get a 4 high density foam at [employer]; or GeoMat or J-cushion from [employer]; or we can order a ROHO cushion if you qualify for this type of cushion 4 high density foam cushion GeoMat Cushion Nacho Cushion Roho Cushion [facility] [address] [place] [address] [place] [address] [place] [address] [email or web address] [address] [place] [id number] [email or web address] Yg Delacruz Www.[employer] [phone] [facility] [address] [place], [place] [id number] Chair Pushups Bed Positioning documented in this encounter Plan of Treatment Upcoming Encounters Date Type Specialty Care Team Description 11/15/2022 Virtual Visit Haylie [place], [facility] [address] [facility] [address] [place], [place] [phone] (Wo rk) 11/15/2022 Virtual Visit IM/Peds Yane Barraza MD [address] [facility] [place] [id number] (Wo rk) 03/03/2023 Virtual Visit Neurology Erlinda Barber MD [address] [place] [address] [address] [place], [place] [address] (Wo rk) documented as of this encounter Visit Diagnoses Diagnosis Pressure injury of left ischium, stage 4 (H) Morbid obesity with BMI of 50.0-59.9, ad ult (H) Hypoalbuminemia Other disorders of plasma protein metabo lism documented in this encounter Additional Health Concerns Assessment Noted Time PHQ-9 Depression Total Score: 4 04/12/2019 7:03 AM CDT documented as of this encounter Care Teams Utility Systems Repairer Operator Relationship Specialty Start Date End Date Galdino Valdez MD PCP - General Family Practice 11/29/19 02/12/20 [address] [place], [place] [phone] Jaiden Holcomb PCP - General Internal Medicine 02/13/2010/03 MD Jayesh [address] [place] [address] [place] [id number] Lucero Stevenson, PCP - General 05/15/19 1 07/23/18 MD TOÑO LOPEZ [address] [place], [place] [phone] Doris Lai MD PCP - General 05/24/19 11/28/19 [address] [facility] [place] [id number] Chastity Montero MD Dermatology 09/23/[address] [place] [address] [address] [place] [address] Johnnie Alcocer MD Surgeon General Surgery 03/23/[address] [place], [place] [address] Lucero Stevenson, Assigned PCP 06/17/18 MD TOÑO LOPEZ [address] [place], [place] [phone] Danni Marcus, CHANDLER Personal Advocate & 01/09/1901/17 Liaison (PAL) Fernando Ea Complex 04/23/19 Svetlana Osman, Pharmacist Pharmacotherapy 04/23/[address] [place], [place] [phone] Haylie Cheung, Pharmacist Pharmacist 09/11/[address] [place], [place] [phone] Galdino Valdez MD Assigned PCP 11/10/19 05/23/20 [address] [place], [place] [phone] Opal, Assigned Sleep 05/08/20 03/27/21 Kendall Meehan MD Provider [address] [place], [place] [address] Erlinda Barber MD Assigned Neuroscience 05/08/20 01/26/21 [address] [facility] [address] Provider [place], [place] [address] Jaiden Holcomb Assigned PCP 05/24/20 MD Jayesh [address] [place], [place] [address] documented as of this encounter
--- OUTSIDE RECORDS SUMMARY | 2022-06-15 13:02 | XMS_ITS | Encounter Summary ---
:1945 Author Organization [facility] Address [address] [place] [address] Care Team Providers Name Role Phone Chastity Montero MD Unavailable [phone] Johnnie Alcocer MD Unavailable Lucero Stevenson MD Unavailable [phone] Danni Marcus RN Unavailable Unavailable Mtm, Ea Complex Unavailable Unavailable Svetlana Osman [facility] Unavailable [phone] Haylie Cheung [facility] Unavailable [phone] Galdino Valdez MD Unavailable Galdino Valdez MD Primary Care Provider Jaiden Holcomb MD Primary Care Provider [phone] Kendall Joseph MD Unavailable Erlinda Barber MD Unavailable Jaiden Holcomb MD Unavailable [phone] Lucero Stevenson MD Primary Care Provider Doris Lai MD Primary Care Provider Ruth John MD Unavailable Kajal Huggins MD Unavailable Patience Toussaint NP Unavailable Brook Sánchez MD Unavailable Yane Barraza MD Primary Care Provider Osmar Kidd MD Unavailable Erlinda Barber MD Unavailable Yane Barraza MD Primary Care Provider Lenore Alcala MD Unavailable Haylie Cheung [facility] Unavailable [phone] Gaye Patrick RN Unavailable Unavailable Kenya Abernathy APRN MARKET DEVELOPMENT EXECUTIVE Unavailable [phone] Hayley German OD Unavailable [phone] Haylie Cheung [facility] Unavailable [phone] Encounter Details Date Type Department Care Team Description 05/16/2019 Records - [facility] HE CONVERSION Scan, Non-Provider [...] Haylie Gonzalez, [facility] [address] [facility] [place] [id number] (Wo rk) 11/15/2022 Virtual Visit IM/Peds Yane Barraza MD [address] [place] [address] [place] [phone] (Wo rk) 03/03/2023 Virtual Visit Neurology Erlinda Barber MD [address] [facility] [address] [place] [address] (Wo rk) documented as of this encounter Visit Diagnoses Not on filedocumented in this encounter Additional Health Concerns Assessment Noted Time PHQ-9 Depression Total Score: 4 04/12/2019 7:03 AM CDT documented as of this encounter Care Teams Public Speaker Relationship Specialty Start Date End Date Galdino Valdez MD PCP - General Family Practice 11/29/19 02/12/20 [address] [place], [place] [phone] Jaiden Holcomb PCP - General Internal Medicine 02/13/2010/03 MD Jayesh [address] [place] [address] [place] [id number] Lucero Stevenson, PCP - General 05/15/19 1 07/23/18 MD TOÑO LOPEZ [address] [place], [place] [phone] Doris Lai MD PCP - General 05/24/19 11/28/[address] [place] [address] [place] [id number] Yane Barraza MD PCP - General Internal Medicine 10/04/21 12/07/[address] [place] [address] [place] [id number] Yane Barraza MD PCP - General Internal Medicine 12/08/21 [address] [facility] [place] [address] Chastity Montero MD Dermatology 09/23/14 [address] [facility] [address] [place], [place] [address] Johnnie Alcocer MD Surgeon General Surgery 03/23/[address] [place] [address] Lucero Stevenson, Assigned PCP 06/17/18 MD TOÑO LOPEZ [address] [place] [address] Danni Marcus, CHANDLER Personal Advocate & 01/09/1901/17 Liaison (PAL) Fernando, Ea Complex 04/23/19 Svetlana Osman, Pharmacist Pharmacotherapy 04/23/19 [facility] [address] [place] [address] Haylie Cheung, Pharmacist Pharmacist 09/11/19 [facility] [address] [facility] [address] [place], [place] [phone] Galdino Valdez MD Assigned PCP 11/10/19 05/23/20 [address] [place] [address] Opal, Assigned Sleep 05/08/20 03/27/21 Kendall Meehan MD Provider [address] [place] [address] Erlinda Barber MD Assigned Neuroscience 05/08/20 01/26/21 [address] [facility] [address] [place] [address] Jaiden Holcomb Assigned PCP 05/24/20 MD Jayesh 9[address] [place], [place] [address] Ruth John MD Assigned Infectious 01/29/21 07/03/21 [facility] INFECTIOUS Disease Provider [facility] [address] [place], [place] [phone] Kajal Huggins MD Assigned Neuroscience 01/29/21 10/23/21 [address] [facility] Provider [address] [place], [place] [phone] Patience Toussaint NP Assigned Surgical 01/29/21 02/11/22 2945 [facility] Provider [address] [place], [place] [phone] Brook Sánchez MD Assigned Infectious 07/04/21 [address] [facility] [place] [address] Osmar Kidd MD Assigned Sleep 09/26/[address] [place] [address] Erlinda Barber MD Assigned Neuroscience 10/24/21 [address] [facility] [address] [place] [address] Lenore Alcala MD Assigned Heart and 12/18/21 01/21/[address] Vascular Provider [address] [place], [place] [address] Haylie Cheung, Assigned MTM 01/08/22 [facility] Pharmacist [address] [facility] [address] [place] [phone] Gaye Patrick, RN Personal Advocate & 01/18/22 Liaison (PAL) Kenya Abernathy APRN Assigned Heart and 01/22/22 MARKET DEVELOPMENT EXECUTIVE Vascular Provider [address] [place] [address] Hayley German, Assigned Surgical 02/12/22 OD Provider [address] [facility] [place] [phone] Haylie Cheung, Assigned MTM 04/13/22 [facility] Pharmacist [address] [facility] [address] [place] [phone] documented as of this encounter
--- OUTSIDE RECORDS SUMMARY | 2022-06-15 13:02 | XMS_ITS | Encounter Summary ---
:1945 Author Organization [place] Address [address] [place] [address] Care Team Providers Name Role Phone Chastity Montero MD Unavailable [phone] Johnnie Alcocer MD Unavailable Lucero Stevenson MD Unavailable [phone] Danni Marcus RN Unavailable Unavailable MtKyle euceda Complex Unavailable Unavailable Svetlana Osman [facility] Unavailable [phone] Doris Lai MD Primary Care Provider Reason for Visit Reason Onset Date Comments INR RESULTS 05/13/2019 Encounter Details Date Type Department Care Team Description 05/13/2019 [facility] Doris Agarwal MD INR RESULTS [place] [address] [facility] 3[address] [facility] [place] [address] [address] [place] [address] [phone] Social History Tobacco Use Types Packs/Day Years [...] this encounter Miscellaneous Notes Telephone Encounter - Gabbie German, [facility] - 05/13/2019 2:39 PM CDT ANTICOAGULATION MANAGEMENT Patient Name: Charlette Brush Date: 05/13/2019 ASSESSMENT /SUBJECTIVE: Today's INR result of 2.3 [...] procedure or cardioversion: No ??? Additional findings: N/A PLAN: Spoke with CHANDLER Roger regarding INR result and instructed: Warfarin Dosing Instructions: Continue current dose Instructed patient to follow up no later than: 1 week Education provided: Alesha Roger RN verbalizes understanding and agrees to warfarin dosing plan. Instructed to call the Anticoagulation Clinic for any changes, questions or concerns. 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.01] Anticoagulation Episode Summary INR check location: Home Draw Preferred lab: Send INR reminders to: [facility] Comments: 3mg & 10mg tabs - devaughn dose / Interim Home Care qod - Kana [phone] / APPT CARD ONLY Anticoagulation Care Providers Provider Role Specialty Phone number Lucero Stevenson MD Internal Medicine [phone] documented in this encounter Plan of Treatment Upcoming Encounters Date Type Specialty Care Team Description 11/15/2022 Virtual Visit Pharm Haylie Gonzalez, [facility] [address] [place] [address] (Wo rk) 11/15/2022 Virtual Visit IM/Peds Yane Barraza MD [address] [facility] [address] [place] [id number] (Wo rk) 03/03/2023 Virtual Visit Neurology Erlinda Barber MD [address] [facility] [place] 295 [place] [address] (Wo rk) documented as of this encounter Procedures Procedure Name Priority Date/Time Associated Diagnosis Comme nts INR Routine 05/13/2019 Results for thi s procedure are in the resu lts section. 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 [place] [id number] Chastity Montero MD Dermatology 09/23/14 MD Martha 420 [facility] [place] 98 [place], [place] [address] Johnnie Alcocer MD Surgeon General Surgery 03/23/17 [address] [facility] 300 [place], [place] [phone] Lucero Stevenson Assigned PCP 06/17/18 11/09/19 MD Annetta [facility] 8675 [place], [place] [phone] Danni Marcus, RN Personal Advocate & 01/09/1901/17 Liaison (PAL) Kyle King Complex 04/23/19 Svetlana Osman Pharmacist Pharmacotherapy 04/23/19 Era, [facility] [address] [place] [id number] documented as of this encounter
--- OUTSIDE RECORDS SUMMARY | 2022-06-15 13:02 | XMS_ITS | Encounter Summary ---
:1945 Author Organization [place] Address [address] [place] [address] Care Team Providers Name Role Phone Chastity Montero MD Unavailable [phone] Johnnie Alcocer MD Unavailable Lucero Stevenson MD Unavailable [phone] Danni Marcus RN Unavailable Unavailable MtKyle euceda Complex Unavailable Unavailable Svetlana Osman [facility] Unavailable [phone] Doris Lai MD Primary Care Provider Reason for Visit Reason Onset Date Comments INR Followup 06/04/2019 Encounter Details Date Type Department Care Team Description 06/04/2019 [facility] Doris Agarwal MD INR Followup [place] 3305 [facility] 3[address] [facility] [place] [address] [address] [place] [address] [phone] Social History Tobacco Use Types Packs/Day Years [...] Telephone Encounter - Sasha Rueda RN - 06/04/2019 4:02 PM CST Home Care Nurse Michelle thinks she may have a problem with her home INR Machine. She received a 1.7 result today but patient is generally in range. She will have another nurse see patient tomorrow and recheck INR. Patient to continue current does at this time. Sasha Rueda RN [facility] [place] [facility] documented in this encounter Plan of Treatment Upcoming Encounters Date Type Specialty Care Team Description 11/15/2022 Virtual Visit Pharm Haylie Gonzalez, [facility] [address] [place] [address] (Wo rk) 11/15/2022 Virtual Visit [place] [address] [place] [address] [place] [phone] (Wo winter) 03/03/2023 Virtual Visit Neurology Erlinda Barber MD 420 [facility] 295 [place] [address] (Wo rk) documented as of this encounter Procedures Procedure Name Priority Date/Time Associated Diagnosis Comme nts INR Routine 06/04/2019 Results for thi s procedure are in the resu lts section. 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 documented in this encounter Additional Health Concerns Assessment Noted Time PHQ-9 Depression Total Score: 4 04/12/2019 7:03 AM CDT documented as of this encounter Care Teams Life Claims Examiner Relationship Specialty Start Date End Date Doris Lai MD PCP - General 05/24/19 11/28/19 [address] [facility] [address] [place], [place] [phone] Chastity Montero MD Dermatology 09/23/14 420 [facility] 98 [place], [place] [address] Johnnie Alcocer MD Surgeon General Surgery 03/23/[address] [place], [place] [phone] Lucero Stevenson Assigned PCP 06/17/18 11/09/19 MD Annetta [facility] 8675 [place] [address] Danni Marcus, CHANDLER Personal Advocate & 01/09/1901/17 Liaison (PAL) Fernando, Kyle Complex 04/23/19 Svetlana Osman, Pharmacist Pharmacotherapy 04/23/19 [facility] [address] [facility] [facility] [address] [place], [place] [phone] documented as of this encounter
--- OUTSIDE RECORDS SUMMARY | 2022-06-15 13:02 | XMS_ITS | Encounter Summary ---
:1945 Author Organization [place] Address [address] [place] [address] Care Team Providers Name Role Phone Chastity Montero MD Unavailable [phone] Johnnie Alcocer MD Unavailable Lucero Stevenson MD Unavailable Danni Marcus RN Unavailable Unavailable Mtm, Ea Complex Unavailable Unavailable Svetlana Osman [facility] Unavailable [phone] Haylie Cheung [facility] Unavailable [phone] Galdino Valdez MD Unavailable Galdino Valdez MD Primary Care Provider Jaiden Holcomb MD Primary Care Provider [phone] Kendall Joseph MD Unavailable Erlinda Barber MD Unavailable Jaiden Holcomb MD Unavailable [phone] Doris Lai MD Primary Care Provider Encounter Details Date Type Department Care Team Description 06/04/2019 [facility] Other grinder lap [facility] unspecified site (H) [address] [place] [address] Social History Tobacco Use Types [...] Haylie Cheung, [facility] [address] [facility] [place] [address] (Wo rk) 11/15/2022 Virtual Visit IM[place] [address] [place] [address] [address] [facility] [address] (Wo rk) 03/03/2023 Virtual Visit Neurology Erlinda Barber MD 420 [facility] [address] [place], [place] [address] (Wo rk) documented as of this encounter Procedures Procedure Name Priority Date/Time Associated Comments Diagnosis CBC WITH PLATELETS AND Routine 06/04/2019 10:20 R esults for this DIFFERENTIAL AM ACCOUNT SERVICES SPECIALIST procedure are i n the results section. ERYTHROCYTE Routine 06/04/2019 10:20 Results for this SEDIMENTATION RATE AM ACCOUNT SERVICES SPECIALIST procedure are in AUTO the results section. CRP INFLAMMATION Routine 06/04/2019 10:20 Results for this AM ACCOUNT SERVICES SPECIALIST procedure are i n the results section. COMPREHENSIVE Routine 06/04/2019 10:20 Results fo r this METABOLIC PANEL AM ACCOUNT SERVICES SPECIALIST procedure ar e in the results section. documented in this encounter Results CBC WITH PLATELETS AND DIFFERENTIAL (06/04/2019 10:20 AM ACCOUNT SERVICES SPECIALIST) P athologist Signature WBC 7.3 4.0 - 11.0 06/04/2019 [facility] thou/uL 10:34 AM ACCOUNT SERVICES SPECIALIST RBC Count 4.49 3.80 - 06/04/2019 [facility] 5.40 10:34 AM ACCOUNT SERVICES SPECIALIST mill/uL Hemoglobin 13.8 12.0 - 06/04/2019 [facility] 16.0 g/dL 10:34 AM ACCOUNT SERVICES SPECIALIST Hematocrit 41.5 35.0 - 06/04/2019 [facility] 47.0 % 10:34 AM ACCOUNT SERVICES SPECIALIST MCV 92 80 - 100 06/04/2019 [facility] fL 10:34 AM ACCOUNT SERVICES SPECIALIST MCH 30.7 27.0 - 06/04/2019 [facility] 34.0 pg 10:34 AM ACCOUNT SERVICES SPECIALIST MCHC 33.3 32.0 - 06/04/2019 [facility] 36.0 g/dL 10:34 AM ACCOUNT SERVICES SPECIALIST RDW 11.7 11.0 - 06/04/2019 [facility] 14.5 % 10:34 AM ACCOUNT SERVICES SPECIALIST Platelet Count 262 140 - 440 06/04/2019 [facility] thou/uL 10:34 AM ACCOUNT SERVICES SPECIALIST Mean Platelet 7.6 7.0 - 10.0 06/04/2019 [facility] Volume fL 10:34 AM ACCOUNT SERVICES SPECIALIST % Neutrophils 68 50 - 70 % 06/04/2019 [facility] 10:34 AM ACCOUNT SERVICES SPECIALIST % Lymphocytes 20 20 - 40 % 06/04/2019 [facility] 10:34 AM ACCOUNT SERVICES SPECIALIST % Monocytes 9 2 - 10 % 06/04/2019 [facility] 10:34 AM ACCOUNT SERVICES SPECIALIST % Eosinophils 3 0 - 6 % 06/04/2019 [facility] 10:34 AM ACCOUNT SERVICES SPECIALIST % Basophils 1 0 - 2 % 06/04/2019 [facility] 10:34 AM ACCOUNT SERVICES SPECIALIST Absolute 5.0 2.0 - 7.7 06/04/2019 [facility] Neutrophils thou/uL 10:34 AM ACCOUNT SERVICES SPECIALIST Absolute 1.5 0.8 - 4.4 06/04/2019 [facility] Lymphocytes thou/uL 10:34 AM ACCOUNT SERVICES SPECIALIST Absolute 0.7 0.0 - 0.9 06/04/2019 [facility] Monocytes thou/uL 10:34 AM ACCOUNT SERVICES SPECIALIST Eosinophils 0.2 0.0 - 0.4 06/04/2019 [facility] Absolute thou/uL 10:34 AM ACCOUNT SERVICES SPECIALIST Absolute 0.0 0.0 - 0.2 06/04/2019 [facility] Basophils thou/uL 10:34 AM ACCOUNT SERVICES SPECIALIST Specimen Anatomical Collection Method / Collection Time Recei yudy Time (Source) Location / Volume Laterality Blood specimen Venipuncture / 06/04/2019 10:20 019 (specimen) Unknown AM ACCOUNT SERVICES SPECIALIST 10:20 AM ACCOUNT SERVICES SPECIALIST Ruth John MD LAB - BLOOD ORDERABLES Performing Organization Address City/[facility] Phon e Number [facility] [place] [address] [place] [address] [place] [address] (ABNORMAL) Erythrocyte sedimentation rate auto (06/04/2019 10:20 AM ACCOUNT SERVICES SPECIALIST) Patholo gist Method Time Signature Erythrocyte 25 (H) 0 - 20 06/04/2019 [facility] Sedimentation Rate mm/hr 11:18 AM ACCOUNT SERVICES SPECIALIST Specimen Anatomical Collection Method / Collection Time Recei yudy Time (Source) Location / Volume Laterality Blood specimen Venipuncture / 06/04/2019 10:20 019 (specimen) Unknown AM ACCOUNT SERVICES SPECIALIST 10:20 AM ACCOUNT SERVICES SPECIALIST Ruth John MD LAB - BLOOD ORDERABLES Performing Organization Address City/[facility] Phon e Number [facility] [place] [address] [place] [address] [place] [address] (ABNORMAL) CRP inflammation (06/04/2019 10:20 AM ACCOUNT SERVICES SPECIALIST) P athologist Signature CRP 1.0 (H) 0.0 - 0.8 06/04/2019 [facility] mg/dL 10:36 PM ACCOUNT SERVICES SPECIALIST [facility] Specimen Anatomical Collection Method / Collection Time Recei yudy Time (Source) Location / Volume Laterality Blood specimen Venipuncture / 06/04/2019 10:20 019 8:20 (specimen) Unknown AM ACCOUNT SERVICES SPECIALIST PM ACCOUNT SERVICES SPECIALIST Ruth John MD LAB - BLOOD ORDERABLES Performing Organization Address City/State/ZIP Code Phon e Number [place] [address] [address] [facility] (ABNORMAL) Comprehensive metabolic panel (06/04/2019 10:20 AM ACCOUNT SERVICES SPECIALIST) [facility] Method Time Signature Sodium 140 136 - 145 06/04/2019 [facility] mmol/L 10:[address] [facility] Potassium 4.6 3.5 - 5.0 06/04/2019 [facility] mmol/L 10:[address] [facility] Chloride 106 98 - 107 06/04/2019 [facility] mmol/L 10:[address] [facility] Carbon Dioxide 25 22 - 31 06/04/2019 [facility] (CO2) mmol/L 10:[address] [facility] Anion Gap 9 5 - 18 06/04/2019 [facility] mmol/L 10:[address] [facility] Glucose 85 70 - 125 06/04/2019 [facility] mg/dL 10:[address] [facility] Urea Nitrogen 23 8 - 28 06/04/2019 [facility] mg/dL 10:[address] [facility] Creatinine 0.62 0.60 - 06/04/2019 [facility] 1.10 mg/dL 10:35 PM [facility] GFR Estimate If >60 >60 06/04/2019 [facility] Black mL/min/1.7 10:[address] LABORATORY GFR Estimate >60 >60 06/04/2019 [facility] mL/min/1.7 10:[address] LAB[address]ORY Bilirubin Total 0.7 0.0 - 1.0 06/04/2019 [facility] mg/dL 10:[address] [facility] Calcium 9.2 8.5 - 10.5 06/04/2019 [facility] mg/dL 10:[address] [facility] Protein Total 6.7 6.0 - 8.0 06/04/2019 [facility] g/dL 10:[address] [facility] Albumin 3.3 (L) 3.5 - 5.0 06/04/2019 [facility] g/dL 10:[address] [facility] Alkaline 112 45 - 120 06/04/2019 [facility] Phosphatase U/L 10:[address] [facility] AST 21 0 - 40 U/L 06/04/2019 [facility] 10:[address] [facility] ALT 15 0 - 45 U/L 06/04/2019 [facility] 10:[address] [facility] Specimen Anatomical Collection Method / Collection Time Recei yudy Time (Source) Location / Volume Laterality Blood specimen Venipuncture / 06/04/2019 10:20 019 8:20 (specimen) Unknown AM ACCOUNT SERVICES SPECIALIST PM ACCOUNT SERVICES SPECIALIST Narrative O LABORATORY - 06/04/2019 10:35 PM ACCOUNT SERVICES SPECIALIST Fasting Glucose reference range is 70-99 mg/dL per [employer] (ADA) shanda bailon. Ruth John MD LAB - BLOOD ORDERABLES Performing Organization Address City/State/ZIP Code Phon e Number [facility] [place] [address] [id number] [place] [address] LABORATORY [facility] [address] [place] [id number] documented in this encounter Visit Diagnoses Diagnosis Other chronic osteomyelitis, unspecified site (H) documented in this encounter Additional Health Concerns Assessment Noted Time PHQ-9 Depression Total Score: 4 04/12/2019 7:03 AM CDT documented as of this encounter Care Teams Rigging Foreman Relationship Specialty Start Date End Date Galdino Valdez MD PCP - General Family Practice 11/29/19 02/12/20 [address] [place] [address] Jaiden Holcomb PCP - General Internal Medicine 02/13/2010/03 MD Jayesh [address] [facility] [address] [place], [place] [phone] Doris Lai MD PCP - General 05/24/19 11/28/19 [address] [facility] [address] [place], [place] [phone] Chastity Montero MD Dermatology 09/23/[address] [place] [address] 98 [place], [place] [address] Johnnie Alcocer MD Surgeon General Surgery 03/23/17 [address] [facility] [address] [place], [place] [phone] Lucero Stevenson, Assigned PCP 06/17/18 MD TOÑO LOPEZ [address] [place] [address] Danni Marcus, CHANDLER Personal Advocate & 01/09/1901/17 Liaison (PAL) Fernando, Ea Complex 04/23/19 Svetlana Osman, Pharmacist Pharmacotherapy 04/23/19 [place] [address] [address] [place], [place] [phone] Haylie Cheung, Pharmacist Pharmacist 09/11/19 [facility] [address] [place] [address] Galdino Valdez MD Assigned PCP 11/10/19 05/23/20 [address] [place], [place] [phone] Opal, Assigned Sleep 05/08/20 03/27/21 Kendall Meehan MD Provider [address] [place] [address] Erlinda Barber MD Assigned Neuroscience 05/08/20 01/26/21 420 [facility] [address] [place] [address] Jaiden Holcomb Assigned PCP 05/24/20 MD Jayesh [address] [place] [address] documented as of this encounter
--- OUTSIDE RECORDS SUMMARY | 2022-06-15 13:02 | XMS_ITS | Encounter Summary ---
:1945 Author Organization [place] Address [facility]0 [place] [address] Care Team Providers Name Role Phone Chastity Montero MD Unavailable [phone] Johnnie Alcocer MD Unavailable Lucero Stevenson MD Unavailable [phone] Danni Marcus RN Unavailable Unavailable Mtm, Ea Complex Unavailable Unavailable Svetlana Osman [facility] Unavailable [phone] Jonatan Haylieellis Rojas [facility] Unavailable [phone] Galdino Valdez MD Unavailable Galdino Valdez MD Primary Care Provider Jaiden Holcomb MD Primary Care Provider [phone] Kendall Joseph MD Unavailable Erlinda Barber MD Unavailable Jaiden Holcomb MD Unavailable [phone] Doris Lai MD Primary Care Provider Encounter Details Date Type Department Care Team Description 05/27/2019 [facility] Vascular Center CHANDLER Rivers [address] [place] [address] Social History Tobacco Use Types Packs/Day [...] this encounter Miscellaneous Notes Telephone Encounter - Adeline Dhaliwal - 05/27/2019 4:03 PM CST Spoke with Charlette and relayed the message below, she was understanding of the plan. SURY MANAGEMENT SALES CONSULTANT Telephone Encounter - Adeline Dhaliwal - 05/27/2019 4:01 PM CST ----- Message from Patience Toussaint NP sent at 05/27/2019 6:58 AM TREASURY MANAGEMENT SALES CONSULTANT ----- Can you call the patient and let her know that her MRI shows early signs of osteomyelitis or bone infection; I would like her to be seen by ID to see if bone biopsy is needed and IV antibiotics. Referral sent SURY MANAGEMENT SALES CONSULTANT documented in this encounter Plan of Treatment Upcoming Encounters Date Type Specialty Care Team Description 11/15/2022 Virtual Visit Pharm Haylie Gonzalez, [facility] [address] [facility] [address] [place], [place] [phone] (Wo rk) 11/15/2022 Virtual Visit IM/Peds Yane Barraza MD [address] [place] [address] [place] [phone] (Wo rk) 03/03/2023 Virtual Visit Neurology Erlinda Barber MD 420 [facility] 295 [place] [address] (Wo rk) documented as of this encounter Visit Diagnoses Not on filedocumented in this encounter Additional Health Concerns Assessment Noted Time PHQ-9 Depression Total Score: 4 04/12/2019 7:03 AM CDT documented as of this encounter Care Teams Field Insurance Sales Manager Relationship Specialty Start Date End Date Galdino Valdez MD PCP - General Family Practice 11/29/19 02/12/20 [address] [place], [place] [phone] Jaiden Holcomb PCP - General Internal Medicine 02/13/2010/03 MD Jayesh [address] [place] [address] [place] [phone] Doris Lai MD PCP - General 05/24/19 11/28/[address] [place] [address] [place] [address] Chastity Montero MD Dermatology 09/23/14 420 [facility] 98 [place], [place] [address] Johnnie Alcocer MD Surgeon General Surgery 03/23/17 [address] [facility] 300 [place], [place] [phone] Lucero Stevenson, Assigned PCP 06/17/18 MD TOÑO LOPEZ [address] [place] [address] Danni Marcus, RN Personal Advocate & 01/09/1901/17 Liaison (PAL) Fernando, Ea Complex 04/23/19 Svetlana Osman, Pharmacist Pharmacotherapy 04/23/19 [facility] [address] [place] [address] [place], [place] [phone] Haylie Cheung, Pharmacist Pharmacist 09/11/[address] [place] [address] Galdino Valdez MD Assigned PCP 11/10/19 05/23/20 [address] [place] [address] Opal, Assigned Sleep 05/08/20 03/27/21 Kendall Meehan MD Provider [address] [place] [address] Erlinda Barber MD Assigned Neuroscience 05/08/20 01/26/21 [address] [facility] [address] [place] [address] Jaiden Holcomb Assigned PCP 05/24/20 MD Jayesh 909 [place] [address] documented as of this encounter
--- OUTSIDE RECORDS SUMMARY | 2022-06-15 13:02 | XMS_ITS | Encounter Summary ---
:1945 Author Organization [place] Address [facility] [place] [address] Care Team Providers Name Role Phone Chastity Montero MD Unavailable [phone] Johnnie Alcocer MD Unavailable Lucero Stevenson MD Unavailable Danni Marcus RN Unavailable Unavailable Mtm, Ea Complex Unavailable Unavailable Svetlana Osman [facility] Unavailable [phone] Haylie Cheung [facility] Unavailable [phone] Galdino Valdez MD Unavailable Galdino Valdez MD Primary Care Provider Jaiden Holcomb MD Primary Care Provider Kendall Joseph MD Unavailable Erlinda Barber MD Unavailable Jaiden Holcomb MD Unavailable [phone] Doris Lai MD Primary Care Provider Reason for Visit Reason Comments Patient Request Picc order Encounter Details Date Type Department Care Team Description 06/11/2019 [facility] Dora, Patient Request [facility] Mahamed Miranda MD (Picc order) [address] [facility] [address] INFECTIOUS [place], [place] [facility] [address] [place], [place] [address]AN [facility] [phone] [place] [address] Social History Tobacco Use Types Packs/Day Years [...] Encounter - Ethel Ward CMA - 06/19/2019 12:42 PM CST Spoke to pt via home nurse's phone. Clarified that she was suppose to call [facility] herself, number I gave her or call us back on Monday withher decision on starting home infusion. Pt found out her insurance does not cover for home infusions. Received phone call on PICC placement and had line placed Monday06/17/19. [facility] informed me they have been trying to reach her since Monday using her home phone number. Charlette clarified she prefers her mobile [phone] Josiane from [facility] will call her back to get started on treament [employer] Telephone Encounter - Tani Post - 06/19/2019 12:05 PM CST Hilda noriega/ [facility] calling to clarify PICC orders. Hilda @ [phone] [employer] Telephone Encounter - Ethel Ward CMA - 06/11/2019 3:09 PM CST PICC order placed, PICC consent signed and abx ordered. All faxed to [facility] if pt decided to go with them. Pt is considered homebound so nursing visit through [facility] is covered. Pt does have licensed staff mft feefor abx and supplies of about $35 per day for Unasyn. Charlette and her sister is adamant that her [employer] is specialized and should cover all expenses. Will call [facility] themselves to confirm coverage. Will call back if she decides to go with outpatient infusion if cost are too high. Outpatient covered at 100%. Spent over 1 hour explaining to pt and trying to coordinate care. [employer] Telephone Encounter - Tani Post - 06/11/2019 1:[address] John patient Please call Bethanie to discuss orders Bethanie @ [phone] [employer] documented in this encounter Plan of Treatment Upcoming Encounters Date Type Specialty Care Team Description 11/15/2022 Virtual Visit Pharm Haylie Gonzalez, [facility] [address] [facility] [place] [address] (Lena max) 11/15/2022 Virtual Visit IM/Peds Yane Barraza MD [address] [facility] [place] [address] (Wo rk) 03/03/2023 Virtual Visit Neurology Erlinda Barber MD [address] [facility] 295 [place] [address] (Wo rk) documented as of this encounter Visit Diagnoses Diagnosis Other chronic osteomyelitis, unspecified site (H) documented in this encounter Additional Health Concerns Assessment Noted Time PHQ-9 Depression Total Score: 4 04/12/2019 7:03 AM CDT documented as of this encounter Care Teams Cable Way Operator Relationship Specialty Start Date End Date Galdino Valdez MD PCP - General Family Practice 11/29/19 02/12/20 [address] [place], [place] [phone] Jaiden Holcomb PCP - General Internal Medicine 02/13/2010/03 MD Jayesh [address] [place] [id number] Doris Lai MD PCP - General 05/24/19 11/28/[address] [place] [id number] Chastity Montero MD Dermatology 09/23/[address] [place] [address] 98 [place], [place] [address] Johnnie Alcocer MD Surgeon General Surgery 03/23/[address] [place], [place] [address] Lucero Stevenson, Assigned PCP 06/17/18 MD TOÑO LOPEZ [address] [place] [phone] Danni Marcus, CHANDLER Personal Advocate & 01/09/1901/17 Liaison (PAL) Fernando, Ea Complex 04/23/19 Svetlana Osman, Pharmacist Pharmacotherapy 04/23/19 [facility] [address] [place], [place] [phone] Haylie Cheung, Pharmacist Pharmacist 09/11/19 [facility] [address] [place], [place] [phone] Galdino Valdez MD Assigned PCP 11/10/19 05/23/20 [address] [place] [address] Opal, Assigned Sleep 05/08/20 03/27/21 Kendall Meehan MD Provider [address] [place] [address] 106 [place] [address] Erlinda Braber MD Assigned Neuroscience 05/08/20 01/26/21 [address] [facility] 295 [place] [address] Jaiden Holcomb Assigned PCP 05/24/20 MD Jayesh 909 [place] [address] documented as of this encounter
--- OUTSIDE RECORDS SUMMARY | 2022-06-15 13:03 | XMS_ITS | Encounter Summary ---
:1945 Author Organization [place] Address [address] [place] [address] Care Team Providers Name Role Phone Lucero Stevenson MD Primary Care Provider [phone] Chastity Montero MD Unavailable [phone] Johnnie Alcocer MD Unavailable Lucero Stevenson MD Unavailable [phone] Danni Marcus RN Unavailable Unavailable Kana Doshi Unavailable Encounter Details Date Type Department Care Team Description 04/11/2019 Travel Social History Tobacco Use Types Packs/Day [...] [facility] [address] [place] [address] (Wo rk) 11/15/2022 Virtual Visit IM/Peds Yane Barraza MD [address] [facility] [place] [address] (Wo rk) 03/03/2023 Virtual Visit Neurology Erlinda Barber MD [address] [facility] 295 [place] [address] (Wo rk) documented as of this encounter Visit Diagnoses Not on filedocumented in this encounter Additional Health Concerns Assessment Noted Time PHQ-9 Depression Total Score: 4 04/12/2019 7:03 AM CDT documented as of this encounter Care Teams Midwife Practitioner Relationship Specialty Start Date End Date Lucero Stevenson PCP - General Pediatrics 10/11/11 04/22/19 MD Annetta Chastity Montero MD Dermatology 09/23/14 MD Martha [address] [facility] 98 [place], [place] [phone] Johnnie Alcocer MD Surgeon General Surgery 03/23/[address] [place], [place] [phone] Lucero Stevenson Assigned PCP 06/17/18 11/09/19 MD Annetta [facility] [address] [place], [place] [phone] Danin Marcus, CHANDLER Personal Advocate & 01/09/1901/17 Liaison (PAL) Kana Doshi [facility] Clinic Electrical Test Technician Primary Care - CC 03/19/19 documented as of this encounter
--- OUTSIDE RECORDS SUMMARY | 2022-06-15 13:03 | XMS_ITS | Encounter Summary ---
:1945 Author Organization [place] Address [address] [place] [address] Care Team Providers Name Role Phone Chastity Montero MD Unavailable [phone] Johnnie Alcocer MD Unavailable Lucero Stevenson MD Unavailable [phone] Danni Marcus RN Unavailable Unavailable Kana Doshi CONCENTRATOR OPERATOR Unavailable Mtm, Ea Complex Unavailable Unavailable Dawson Svetlana Era [facility] Unavailable [phone] Doris Lai MD Primary Care Provider Lucero Stevenson MD Primary Care Provider Doris Lai MD Primary Care Provider Encounter Details Date Type Department Care Team Description 04/26/2019 Orders Only [facility] Lucero Stevenson NOSIS NOT YET Clinic Yarelis Littlejohn MD DEFINED (Primary Dx) [address] [facility] [address] [facility] [address] [place] [address] [place] [address] [phone] Social History Tobacco Use Types Packs/Day Years [...] D Haylie Cheung, [facility] [address] [place] [address] (Wo rk) 11/15/2022 Virtual Visit IM/Peds Yane Barraza MD [address] [facility] [place] [address] (Wo rk) 03/03/2023 Virtual Visit Neurology Erlinda Barber MD [address] [place] 295 [place], [place] [phone] (Wo rk) documented as of this encounter Procedures Procedure Name Priority Date/Time Associated Diagnosis Comme nts ZC RECERTIFICATION PACKERHEAD MACHINE OPERATOR PT Routine 04/26/2019 DIAGNOSIS N OT YET DEFINED documented in this encounter Results MD WYATT PACKERHEAD MACHINE OPERATOR PT (04/26/2019) Narrative This result has an attachment that is no t available. Lucero Stevenson MD [facility] documented in this encounter Visit Diagnoses Diagnosis DIAGNOSIS NOT YET DEFINED - Primary documented in this encounter Additional Health Concerns Assessment Noted Time PHQ-9 Depression Total Score: 4 04/12/2019 7:03 AM CDT documented as of this encounter Care Teams Electronic Console Display Operator Relationship Specialty Start Date End Date Doris Lai MD PCP - General Internal Medicine 04/23/19 05/14/19 [address] [facility] [place] [id number] Lucero Stevenson PCP - General 05/15/19 05/23/19 MD Annetta [facility] 8675 [place], [place] [phone] Doris Lai MD PCP - General 05/24/19 11/28/19 [address] [facility] [place] [phone] Chastity Montero MD Dermatology 09/23/14 MD Martha [address] [facility] 98 [place], [place] [phone] Johnnie Alcocer MD Surgeon General Surgery 03/23/[address] [place], [place] [address] Lucero Stevenson Assigned PCP 06/17/18 11/09/19 MD Annetta [facility] [address] [place], [place] [phone] Danni Marcus, CHANDLER Personal Advocate & 01/09/1901/17 Liaison (PAL) Kana Doshi CONCENTRATOR OPERATOR Clinic Rod Drawer Primary Care - CC 03/19/19 Fernando, Ea Complex 04/23/19 Svetlana Osman Pharmacist Pharmacotherapy 04/23/[address] [place] [address] documented as of this encounter
--- OUTSIDE RECORDS SUMMARY | 2022-06-15 13:03 | XMS_ITS | Encounter Summary ---
:1945 Author Organization [place] Address [address] [place] [address] Care Team Providers Name Role Phone Chastity Montero MD Unavailable [phone] Johnnie Alcocer MD Unavailable Lucero Stevenson MD Unavailable [phone] Danni Marcus RN Unavailable Unavailable Kana Doshi Unavailable Mtm, Ea Complex Unavailable Unavailable Svetlana Osman [facility] Unavailable [phone] Doris Lai MD Primary Care Provider Reason for Visit Reason Comments EEG Encounter Details Date Type Department Care Team Description 04/26/2019 Allied Health/Nurse [facility] Epilepsy Care EEG Visit [address] [place], [place] [phone] Social History Tobacco Use Types Packs/Day Years [...] as of this encounter Progress Notes Gabbie Ge - 04/26/2019 8:00 AM CDT [facility] [id number] OP/3hr Video EEG [facility] [place] [facility] [place] Dr. Fuentes reading documented in this encounter Procedure Notes Erlinda Fuentes MD - 04/29/2019 10:39 AM CDTAssociated Order(s): EEG Procedure Date: 04/26/2019 EEG #[id number] DATE OF RECORDING/SERVICE DATE: 04/26/2019 SOURCE FILE DURATION: 3 hours and 19 minutes. CLINICAL HISTORY: This patient is a 74-year-old right-handed female who presented with new onset seizures. EEG was requested for further evaluation. CURRENT MEDICATIONS: Keppra. TECHNICAL SUMMARY: This continuous video- EEG monitoring procedure was performed with 23 scalp electrodes in 10-20 electrode system placements, and additional scalp, precordial and other surface electrodes used for electrical referencing and artifact detection. Video monitoring was utilized and periodically reviewed by EEG technologists and the physician for electroclinical correlations. BACKGROUND ACTIVITIES: The background activities of this EEG consisted of poorly formed 8-1/2 Hz posterior dominant rhythm, which attenuates with eye opening during maximal wakefulness. Hyperventilation produced no change of the background activities. Photic stimulation produced driving responses. Sleep stages were recorded with well-formed vertex sharp transients, sleep spindles. There was excessive left temporal theta slowing during this recording. No interictal epileptiform activities were observed. ICTAL ACTIVITIES: No seizures were recorded. IMPRESSION: This EEG is mildly abnormal due to the presence of excessive left temporal theta slowingduring waking and asleep. These findings are consistent, but not diagnostic of seizure disorder. Clinical correlation is advised. ERLINDA FUENTES MD MT: [place] Name: MARZENA EVANS Account: [id number] : 1945 Procedure Date: 04/26/2019 Document: [id number] documented in this encounter Plan of Treatment Upcoming Encounters Date Type Specialty Care Team Description 11/15/2022 Virtual Visit Pharm D Haylie Cheung, [facility] [address] [facility] [place] [address] (Wo rk) 11/15/2022 Virtual Visit IM/Peds Yane Barraza MD [address] [facility] [place] [address] (Wo rk) 03/03/2023 Virtual Visit Neurology Erlinda Fuentes MD [address] [facility] 295 [place] [address] (Lena max) Scheduled Orders Name Type Priority Associated Diagnoses Order S chedule CHARGE: Video EEG < 12 Procedures Routine Seizure (H) Order ed: 04/26/2019 hours ([id number]) ORDER: EEG video Neurology Routine Seizure (H) Ordered: monitoring documented as of this encounter Procedures Procedure Name Priority Date/Time Associated Diagnosis Comme nts EEG ROUTINE 04/29/2019 10:39 AM Results for this CDT procedure are i n the results section . documented in this encounter Results EEG (04/29/2019 10:39 AM CDT) Procedure Note Erlinda Fuentes MD - 04/29/2019 10:39 AM CDT Procedure Date: 04/26/2019 EEG #[id number] DATE OF RECORDING/SERVICE DATE: 04/26/20 19 SOURCE FILE DURATION: 3 hours and 19 min utes. CLINICAL HISTORY: This patient is a 74-y ear-old right-handed female who presented with new onset seizures. EEG was requested for further evaluation. CURRENT MEDICATIONS: Keppra. TECHNICAL SUMMARY: This continuous video - EEG monitoring procedure was performed with 23 scalp electrodes in 10-20 electrode system placements, and additional scalp, precordial and other surface electrodes used for electrical referencing and artifact dete ction. Video monitoring was utilized and periodically reviewed by EEG technologists and the physician for electroclinical correlations. BACKGROUND ACTIVITIES: The background ac tivities of this EEG consisted of poorly formed 8-1/2 Hz posterior dominant rhythm, which attenuates with eye opening during maximal wakefulness. Hyperventilation produced no change of the background activities. Giuliana tic stimulation produced driving responses. Sleep stages were recorded with well-for med vertex sharp transients, sleep spindles. There was excessive left temporal theta slowing during this recording. No interictal epileptiform activities were observed. ICTAL ACTIVITIES: No seizures were recor ded. IMPRESSION: This EEG is mildly abnormal due to the presence of excessive left temporal theta slowing during waking and asleep. These findings are consistent, but not diagnostic of seizure disorder. Clinical correlation is advised. ERLINDA FUENTES MD MT: [place] Name: MARZENA EVANS MRN: [id number] Account: [id number] : 1945 Procedure Date: 04/26/20 Document: [id number] Erlinda Fuentes MD IMG EEG ORDERABLES documented in this encounter Visit Diagnoses Diagnosis Seizure (H) - Primary Other convulsions documented in this encounter Additional Health Concerns Assessment Noted Time PHQ-9 Depression Total Score: 4 04/12/2019 7:03 AM CDT documented as of this encounter Care Teams Needle Molder Relationship Specialty Start Date End Date Doris Lai MD PCP - General Internal Medicine 04/23/19 05/14/19 [address] [facility] [place] [address] Chastity Montero MD Dermatology 09/23/14 MD Martha [address] [place] [address] 98 [place] [address] Johnnie Alcocer MD Surgeon General Surgery 03/23/17 [address] [facility] 300 [place] [address] Lucero Stevenson Assigned PCP 06/17/18 11/09/19 MD TOÑO Littlejohn [place] [address] [place] [address] Danni Marcus, CHANDLER Personal Advocate & 01/09/1901/17 Liaison (PAL) Kana Doshi LSW Clinic Tail Edger Primary Care - CC 03/19/19 Mtkinsey, Ea Complex 04/23/19 Svetlana Osman Pharmacist Pharmacotherapy 04/23/19 Era, [facility] [address] [facility] [address] [place] [phone] documented as of this encounter
--- OUTSIDE RECORDS SUMMARY | 2022-06-15 13:03 | XMS_ITS | Encounter Summary ---
:1945 Author Organization [place] Address [address] [place] [address] Care Team Providers Name Role Phone Chastity Montero MD Unavailable [phone] Johnnie Alcocer MD Unavailable Lucero Stevenson MD Unavailable [phone] Danni Marcus RN Unavailable Unavailable Kana Doshi OCULAR CARE TECHNICIAN Unavailable Mtm, Ea Complex Unavailable Unavailable Svetlana Osman [facility] Unavailable [phone] Doris Lai MD Primary Care Provider Reason for Visit Reason Onset Date Comments *-*INCOMING RECORDS*-* 04/24/2019 Encounter Details Date Type Department Care Team Description 04/24/2019 PRE VISIT [facility] Neurology Erlinda Barber MD *-*INCOMING RECORDS*-* [address] [place] [id number] [phone] (Wo rk) Social History Tobacco Use Types [...] 05/03/2021 organizations such as yarsani groups, unions, [employer] or athletic groups, or school groups? How [...] this encounter Miscellaneous Notes Telephone Encounter - Danyelle Lindsey - 03/28/2019 3:29 PM CDT RECORDS RECEIVED FROM: Internal - Dr Stevenson - FAROOQ [place] Complex Care DATE RECEIVED: 04/24/19 NOTES (FOR ALL VISITS) STATUS DETAILS OFFICE NOTE from referring provider Internal 03/20/19 OFFICE NOTE from other specialist N/A DISCHARGE SUMMARY from hospital Internal [facility]: 03/15/19-03/17/19 DISCHARGE REPORT from the ER N/A OPERATIVE REPORT N/A MEDICATION LIST Internal IMAGING (FOR ALL VISITS) EMG N/A EEG Internal [facility]: 03/16/19-03/17/19 ECT N/A MRI (HEAD, NECK, SPINE) Internal [facility]: MRI Brain 03/16/19 MRV Brain 03/16/19 [facility]: MRI Brain 01/16/19 LUMBAR PUNCTURE N/A BEREKET Scan N/A CT (HEAD, NECK, SPINE) [facility]: CTA Head Neck 03/15/19 CT Head 03/15/19 [facility]: CT Head 01/07/19 CT Head 10/20/17 documented in this encounter Plan of Treatment Upcoming Encounters Date Type Specialty Care Team Description 11/15/2022 Virtual Visit Haylie Wakefield, [facility] [address] [facility] [address] [place], [place] [phone] (Wo rk) 11/15/2022 Virtual Visit [place] [address] [place] [address] [place] [address] (Wo rk) 03/03/2023 Virtual Visit Neurology Erlinda Barber MD [address] [facility] 295 [place] [address] (Wo rk) documented as of this encounter Visit Diagnoses Not on filedocumented in this encounter Additional Health Concerns Assessment Noted Time PHQ-9 Depression Total Score: 4 04/12/2019 7:03 AM CDT documented as of this encounter Care Teams Flat Knitter Relationship Specialty Start Date End Date Doris Lai MD PCP - General Internal Medicine 04/23/19 05/14/19 [address] [facility] [place] [address] Chastity Montero MD Dermatology 09/23/14 MD Martha 420 [facility] 98 [place], [place] [phone] Johnnie Alcocer MD Surgeon General Surgery 03/23/17 [address] [facility] 300 [place] [address] Lucero Stevenson Assigned PCP 06/17/18 11/09/19 MD Annetta [address] [address] Danni Marcus, CHANDLER Personal Advocate & 01/09/1901/17 Liaison (PAL) Kana Doshi LSW Clinic [employer] Knitting Machine Operator Primary Care - CC 03/19/19 Fernando, Kyle Complex 04/23/19 Svetlana Osman Pharmacist Pharmacotherapy 04/23/19 Era, [facility] [address] [place] [address] documented as of this encounter
--- OUTSIDE RECORDS SUMMARY | 2022-06-15 13:03 | XMS_ITS | Encounter Summary ---
:1945 Author Organization [place] Address [address] [place] [address] Care Team Providers Name Role Phone Chastity Montero MD Unavailable [phone] Johnnie Alcocer MD Unavailable Lucero Stevenson MD Unavailable [phone] Danni Marcus RN Unavailable Unavailable Kana Doshi SKIN CARE THERAPIST Unavailable Mtm, Ea Complex Unavailable Unavailable LowellSvetlana gallegos [facility] Unavailable [phone] Doris Lai MD Primary Care Provider Reason for Visit Reason Onset Date Comments Orders 04/23/2019 Bariatric 4-maia [place]ague Encounter Details Date Type Department Care Team Description 04/23/2019 Telephone [facility] Lucero Stevenson rs (Bariatric Clinic MD soham Flower) [address] [place] [address] [place] [address] [phone] Social History Tobacco Use Types Packs/Day Years [...] 05/03/2021 organizations such as denominational groups, unions, fraGrow the Planet or athletic groups, or school groups? How [...] Telephone Encounter - Danni Marcus RN - 04/23/2019 3:32 PM CDT I called [facility] back and was told that the note they had did not include all this detail. I faxed updated note to them and was told that patient should hear from them within two weeks. Patient notified that new progress notes were faxed and expected time to hear back from [facility]. She will call me if she doesn't hear back from them. No further questions. Will call back if any other questions or concerns. Ashli Marcus RN Telephone Encounter - Lucero Stevenson MD - 04/23/2019 2:25 PM CDT Yes, there is documentation of need for walker to complete ADL's in that note (see below). Do they need something more specific? This should be sufficient. LOWER EXTREMITY WEAKNESS Pt with severe lymphedema causing leg weakness and difficulty walking. 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 She uses a walker for ambulation both in andoutside of her house, and is limited by her current 2 wheeled walker. She is unable to use a cane asit does not support her weight and her gait is unstable with a cane. The patient uses a walker in the home to help her stand to prepare meals and ambulate in her home. Lucero Stevenson MD Telephone Encounter - Danni Marcus, RN - 04/23/2019 11:24 AM CDT Patient has not received bariatric 4-wheeled walker I called [facility] and verified they did receive the order for the walker, however, the office appointment notes do not mention any difficulty performing ADLs to substantiate the need for this walker. We may addend the office appointment note of 03/20 and refax this addended note to them at [phone]. Ashli Marcus RN documented in this encounter Plan of Treatment Upcoming Encounters Date Type Specialty Care Team Description 11/15/2022 Virtual Visit Pharm D Haylie Cheung, [facility] [address] [facility] [place] [id number] (Wo rk) 11/15/2022 Virtual Visit IM/Peds Yane Barraza MD [address] [place] [address] [place] [id number] (Wo rk) 03/03/2023 Virtual Visit Neurology Erlinda Barber MD [address] [facility] [address] [place] [address] (Wo rk) documented as of this encounter Visit Diagnoses Not on filedocumented in this encounter Additional Health Concerns Assessment Noted Time PHQ-9 Depression Total Score: 4 04/12/2019 7:03 AM CDT documented as of this encounter Care Teams Melting Supervisor Relationship Specialty Start Date End Date Doris Lai MD PCP - General Internal Medicine 04/23/19 05/14/[address] [place] [address] [place] [id number] Chastity Montero MD Dermatology 09/23/14 MD Martha [address] [facility] [address] [place] [address] Johnnie Alcocer MD Surgeon General Surgery 03/23/[address] [place], [place] [address] Lucero Stevenson Assigned PCP 06/17/18 11/09/19 MD Annetta [facility] [address] [place] [address] Danni Marcus, [place] Personal Advocate & 01/09/1901/17 Liaison (PAL) Kana Doshi LSW Clinic Catering Attendant Primary Care - CC 03/19/19 [place], Ea Complex 04/23/19 Svetlana Osman Pharmacist Pharmacotherapy 04/23/19 Era, [facility] [address] [facility] [place] [address] documented as of this encounter
--- OUTSIDE RECORDS SUMMARY | 2022-06-15 13:03 | XMS_ITS | Encounter Summary ---
:1945 Author Organization [place] Address [address] [place] [address] Care Team Providers Name Role Phone Chastity Montero MD Unavailable [phone] Johnnie Alcocer MD Unavailable Lucero Stevenson MD Unavailable [phone] Danni Marcus RN Unavailable Unavailable Kana Doshi ARSON INVESTIGATOR Unavailable Mtm, Ea Complex Unavailable Unavailable Long BeachSvetlana gallegos [facility] Unavailable [phone] Doris Lai MD Primary Care Provider Reason for Visit Reason Onset Date Comments Orders 04/25/2019 for more wound care and poss Abx. Referral 04/25/2019 Vascular Center Encounter Details Date Type Department Care Team Description 04/25/2019 [facility] Nadya Lai MD Orders (for more wound Clinic [place] [address] [facility] care and poss Abx.); [address] [facility] [address] Referral (Vascular [address] [place] [address] Center) [address] [place] [address] [phone] Social History Tobacco Use Types Packs/Day Years [...] many times do you More than three yiesl es a week 05/03/2021 talk on the [...] Telephone Encounter - Jolanta Reddy RN - 04/26/2019 12:29 PM CDT Call to patient-advised. She will last picker. Jolanta Reddy RN Message handled by Nurse Triage. Telephone Encounter - Lucero Stevenson MD - 04/26/2019 8:30 AM CDT Based on her allergies and need to cover broad spectrum I sent prescriptions for clindamycin and cipro for 10 days. Please let patient know. Lucero Stevenson MD Telephone Encounter - Danni Marcus RN - 04/25/2019 1:23 PM CDT Appointment booked 05/15 at 10 am with Patience Toussaint NP at the [place] office. Dr. Stevenson-please advise on antibiotics. Patient would like to see Dr. Huggins. I called the wound clinic ([phone] ) to schedule an appointment. Dr. Huggins is booked out until June. Dr. Palacio has a nurse practitioner that would be able to see patient at the end of April. Discussed with patient and she would like to be seen in April. Patient is aware of this appointment and will look for transportation. Ashli Marcus RN Telephone Encounter - Danni Marcus RN - 04/25/2019 12:02 PM CDT I called patient and she asked me to call her back in about one hour. Ashli Marcus RN Telephone Encounter - Lucero Stevenson MD - 04/25/2019 10:15 AM CDT Please call charlette and see if she would rather see her daughters wound physician or the vascular surgeon as the nurse recommended. I'm not sure she needs both. If possible I'd like for her to see one ofthem in the next week. If she can get in in the next week then I will not start antibiotics as I'd like for her to have a wound culture and evaluation for osteomyelitis for better evaluation of what antibiotic to start and for how long. If she cannot get in in the next week please let me know and we'll start an antibiotic. Lucero Stevenson MD Telephone Encounter - Danni Marcus RN - 04/25/2019 9:09 AM CDT Order pended for plastic surgeon, Dr. Palacio at [facility] surgery. Please review recommendation for antibiotic treatment. Ashli Marcus RN Telephone Encounter - Vaishnavi Jones - 04/25/2019 8:54 AM CDT Reason for Call: Home Health Care Hoda with [facility] called regarding (reason for call): Orders are needed for this patient. PT: OT: [facility]: accounts specialist, they do wound care every other day. She was asked to eval the ptswound after 6 months. The wound has not changed in the last 6 months. It should have been. It has a lot of drainage and can smell it when you walk in the house. She would like possibly an Abx or something. She did send over some orders. It is the same size and the drainage soaks the pad every 1 to 1.5days. She would recommend that the pt see a plastic surgeon Dr. Palacio at [facility]. Please look at the orders and signed them and send them back. Let Hoda know about the Abx if ordered so shecan let the home care nurse know. Pt Provider: Phone Number Homecare Nurse can be reached at: [phone] - Yurybdk number Can we leave a detailed message on this number? YES Phone number patient can be reached at: Best Time: any Call taken on 04/25/2019 at 8:54 AM by Vaishnavi Jones documented in this encounter Plan of Treatment Upcoming Encounters Date Type Specialty Care Team Description 11/15/2022 Virtual Visit Pharm D Haylie Cheung, [facility] [address] [facility] [place] [phone] (Lena max) 11/15/2022 Virtual Visit [place] [address] [place] [address] [place] [phone] (Lena max) 03/03/2023 Virtual Visit Neurology Erlinda Barber MD 420 [facility] [address] [place] [address] (Lena max) documented as of this encounter Visit Diagnoses Diagnosis Pressure injury of left buttock, stage 4 (H) - Primary documented in this encounter Additional Health Concerns Assessment Noted Time PHQ-9 Depression Total Score: 4 04/12/2019 7:03 AM CDT documented as of this encounter Care Teams Document Examiner Relationship Specialty Start Date End Date Doris Lai MD PCP - General Internal Medicine 04/23/19 05/14/[address] [place] [address] [place] [id number] Chastity Montero MD Dermatology 09/23/14 MD Martha 420 [facility] 98 [place], [place] [address] Johnnie Alcocer MD Surgeon General Surgery 03/23/[address] [place] [address] Lucero Stevenson Assigned PCP 06/17/18 11/09/19 MD Annetta [facility] [address] [place] [address] Danni Marcus, [place] Personal Advocate & 01/09/1901/17 Liaison (PAL) Kana Doshi LSW Clinic Cryptologic Technician Primary Care - CC 03/19/19 [place], Ea Complex 04/23/19 Svetlana Osman Pharmacist Pharmacotherapy 04/23/19 Era, [facility] [address] [facility] [address] [place], [place] [phone] documented as of this encounter
--- OUTSIDE RECORDS SUMMARY | 2022-06-15 13:03 | XMS_ITS | Encounter Summary ---
:1945 Author Organization [place] Address [address] [place] [address] Care Team Providers Name Role Phone Chastity Montero MD Unavailable [phone] Johnnie Alcocer MD Unavailable Lucero Stevenson MD Unavailable [phone] Danni Marcus RN Unavailable Unavailable Kana Doshi SYSTEM TRAINER Unavailable Mtm, Ea Complex Unavailable Unavailable Svetlana Osman [facility] Unavailable [phone] Doris Lai MD Primary Care Provider Reason for Visit Reason Comments Medication Therapy Management Encounter Details Date Type Department Care Team Description 04/23/2019 Office Visit [facility] Svetlana Osman Interm ittent pain (Primary Dx); Clinic Yarelis Girard [place] Essential hypertension, benign; [address] [place] Lymphedema of both lower extremities; [address] [place] [address] 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 How [...] as of this encounter Patient Instructions Patient InstructionsPaSvetlana khan RPH - 04/23/2019 9:20 AM CDT Recommendations from today's Complex Care Team visit: Thank you for participating in our complex care team visit today! 1. Next care team visit: It was a pleasure seeing you today! Please feel free to contact us with any questions or concerns you have. My Care Team Members Dr. Stevenson Nurse KODY(s) Genevieve Fowler MTM (medication therapy management) is a service provided by a clinical pharmacist designed to help you get the most of out of your medicines. My Clinical Pharmacist's contact information: Svetlana Osman, Tia [facility] Medication Therapy Management Practitioner #[phone] It was great to speak with you today. I value your experience and would be very thankful for your time with providing feedback on our clinic survey. You may receive a survey via email or text message in the next few days. documented in this encounter Progress Notes Svetlana Osman RPH - 04/23/2019 9:20 AM CDT Images from the original note were not included. SUBJECTIVE/OBJECTIVE: Charlette Brush is a 74 year old female coming in for an initial visit for Medication Therapy Management. She was referred to me from Dr. Stevenson and seen as a co-visit with care team visit today. Daughter present for visit. Chief Complaint: Keppra, brand new drug to her, wondering about this Question on wound care. Allergies/ADRs: Reviewed in [facility] Tobacco: No tobacco use Alcohol: not currently using Activity: She is planning on exercise program, Present with walker. PMH: Reviewed in [facility] CEFERINO on CPAP, she has pressure wound, injury to sciatic nerve. Medication Adherence/Access: Patient takes medications directly from bottles. Patient takes medications 2 time(s) per day. Per patient, misses medication 0 times per week. Medication barriers: none. The patient fills medications at [facility]: NO, fills medications at [facility]. Intermittent pain: Current medications include: acetaminophen 650mg Q4 prn. Not currently using or Needing. Hypertension/Bilateral Edema: Current medications include losartan 50mg every day, furosemide 20mg in AM and 20mg 2 hours late, atenolol 25mg twice daily. Took a different diuretic before accident, sheis in the bathroom every 45 minutes to 1 hour, night is goes twice at night. Has 1 hour program with lymphedema therapy per day so she divides up her furosemide. History of being on triamterene-hydrochlorothiazide 37.5-25mg, she like this better. Patient does self-monitor BP.Nurse every day to every other day comes out and checks BP, see nurse note for ranges. Patient reports the following medicationside effects: urinary frequency. . BP Readings from Last 3 Encounters: 04/23/19 122/68 03/20/19 (!) 152/84 03/17/19 (!) 144/77 Potassium Date Value Ref Range Status 03/16/2019 3.7 3.4 - 5.3 mmol/L Final Estimated Creatinine Clearance: 140.4 mL/min (based on SCr of 0.56 mg/dL). Recurrent PE: Current medication is wafarin 10mg QD History of Dr. Felipe recommending lifelong therapy. She does not think she had PE, just 1 PE. No bleeding reported Lab Results Component Value Date INR 2.5 04/18/2019 INR 2.1 04/11/2019 INR 2.3 04/04/2019 INR 2.40 03/20/2019 Anemia: Current medication is ferrous sulfate 325mg every day. She is taking this with her other supplements. No constipation with diet. Hemoglobin Date Value Ref Range Status 03/16/2019 12.7 11.7 - 15.7 g/dL Final ] Seizure: Current medication is levetiracetam 1000mg every day. Patient was hospitalized in February with suspected seizure. S/E: She is getting tired on this. Referred to Epilepsy clinic and patient has appointment on 04/24. Patient had been started on Keppra in the hospital, looks like she was on levetiracetam 1000mg twicedaily. Allergies: Current medications include cetirizine 10mg twice daily. Primary symptoms are nasal congestion. She is taking this for the skin allergies and works well. She does not like nasal sprays and do not want to start those. Pt feels that current therapy is somewhat effective. Eczema/Wound: Current medication is hydrocortisone 2.5% ointment, desoximetasone 0.05% as needed forskin, nystatin cream or powder for wound healing/infection. She sees dermatology. Supplements: Currently taking vitamin D 2000 units every day, calcium carbonate+D 600-200 1 tablet every day, MVI 1 tablet every day, Preservision/Luteine 1 cap every day for macular degeneration, vitamin C for wound healing. Milk 1 gallon per week, 2-3 glasses per day. She has an allergy to the sun and reason she takes vitamin D. Normal DEXA scan 2012. Component Latest Ref Rng & Units 12/30/2014 01/01/2016 Vitamin D Deficiency screening 20 - 75 ug/L 63 54 BP Readings from Last 1 Encounters: 04/23/19 122/68 Pulse Readings from Last 1 Encounters: 04/23/19 78 Wt Readings from Last 1 Encounters: 04/23/19 (!) 334 lb 8 oz (151.7 kg) Ht Readings from Last 1 Encounters: 04/23/19 5' 7 (1.702 m) Estimated body mass index is 52.39 kg/m?? as calculated from the following: Height as of this encounter: 5' 7 (1.702 m). Weight as of this encounter: 334 lb 8 oz (151.7 kg). Temp Readings from Last 1 Encounters: 04/23/19 97.4 ??F (36.3 ??C) (Oral) ASSESSMENT: Current medications were reviewed today as discussed above. Medication Adherence: good, no issues identified Intermittent pain: stable Hypertension/Bilateral Edema: Needs Improvement. Patient is meeting BP goal of < 140/90mmHg. Pt would benefit from the following changes - trial off the furosemide to see if helps urinary frequency Recurrent PE: stable, INR wnl. Dr. Stevenson would like patient to continue warfarin due to obesity and immobility. Anemia: Needs improvement. Uncertain if patient needs, labs to be done today, if needs to continue need to separate from calcium and MVI. Seizure: needs improvement. Keprra dose frequency usually dosed twice daily. Pt sees neurology tomorrow and will address with them. Allergies: stable, pt does not want to give new therapies a trial for her nasal congestion. Eczema/Wound: stable Supplements: needs improvement. Pt getting enough calcium in her diet she may benefit from discontinuing calcium, she did not want to do this today. Vaccines: Needs improvement. Pt would like an influenza vaccine, she would like dermatology to weighin on getting Shingrix vaccine PLAN: 1. Supplements: -Check iron levels to determine need for iron. If needed, separate the iron from multivitamin and calcium, take later in the day, take with vitamin C. -Patient may stop calcium. 2. Urinary frequency, give trial off the Lasix. Monitor BP, edema. 3. Influenza vaccine today. Pt to ask dermatology about getting the new shingles vaccine, Shingrix 4. Seizure: Pt to ask neurology about Keppra dose, usually twice daily dosing. Next care team visit: 3 months I spent 50 minutes with this patient today. All changes were made via verbal approval with Dr. Stevenson. A copy of the visit note was provided to the patient's primary care provider. The patient was given a summary of these recommendations as an after visit summary. Svetlana Osman PharmD [facility] Medication Therapy Management Practitioner #[phone] documented in this encounter Plan of Treatment Upcoming Encounters Date Type Specialty Care Team Description 11/15/2022 Virtual Visit Haylie Wakefield, [facility] [address] [facility] [address] [place] [phone] (Wo rk) 11/15/2022 Virtual Visit IM/Peds Yane Barraza MD [address] [facility] [place] [id number] (Wo rk) 03/03/2023 Virtual Visit Neurology Erlinda Barber MD [address] [facility] [address] [place], [place] [id number] ( rk) documented as of this encounter Visit Diagnoses Diagnosis Intermittent pain - Primary Generalized pain Essential hypertension, benign Lymphedema of both lower extremities 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 embolism Takes dietary supplements Vitamin D deficiency Unspecified vitamin D deficiency Seizure (H) Other convulsions Eczema, unspecified type Allergic reaction, sequela Open wound Open wound(s) (multiple) of unspecified site(s), without mention of complication Vaccine counseling documented in this encounter Additional Health Concerns Assessment Noted Time PHQ-9 Depression Total Score: 4 04/12/2019 7:03 AM CDT documented as of this encounter Care Teams Tailings Man Relationship Specialty Start Date End Date Doris Lai MD PCP - General Internal Medicine 04/23/19 05/14/19 [address] [facility] [address] [place] [phone] Chastity Montero MD Dermatology 09/23/14 MD Martha 420 [facility] [address] [place], [place] [address] Johnnie Alcocer MD Surgeon General Surgery 03/23/17 [address] [facility] [address] [place] [address] Lucero Stevenson Assigned PCP 06/17/18 11/09/19 MD TOÑO [address] [place], [place] [phone] Danni Marcus, [place] Personal Advocate & 01/09/1901/17 Liaison (PAL) Kana Doshi, [facility] Clinic Watch Crystal Edge Grinder Primary Care - CC 03/19/19 Fernando, Ea Complex 04/23/19 Svetlana Osman Pharmacist Pharmacotherapy 04/23/19 [facility] [address] [facility] [place] [address] documented as of this encounter
--- OUTSIDE RECORDS SUMMARY | 2022-06-15 13:03 | XMS_ITS | Encounter Summary ---
:1945 Author Organization [place] Address [facility] [place] [address] Care Team Providers Name Role Phone Chastity Montero MD Unavailable [phone] Johnnie Alcocer MD Unavailable Lucero Stevenson MD Unavailable [phone] Danni Marcus RN Unavailable Unavailable Kana Doshi CALENDER WORKER HELPER Unavailable Mtm, Ea Complex Unavailable Unavailable Svetlana Osman [facility] Unavailable [phone] Doris Lai MD Primary Care Provider Haylie Cheung [facility] Unavailable [phone] Galdino Valdez MD Unavailable Galdino Valdez MD Primary Care Provider Jaiden Holcomb MD Primary Care Provider [phone] Lucero Stevenson MD Primary Care Provider [phone] Doris Lai MD Primary Care Provider Reason for Visit Reason Onset Date Comments Appointment 04/23/2019 Schedule in July Encounter Details Date Type Department Care Team Description 04/23/2019 Telephone [facility] Lucero Stevenson intment (Schedule Clinic Yarelis Littlejohn MD in July) [address] [place] [address] [place] [id number] [phone] Social History Tobacco Use Types Packs/Day Years [...] Telephone Encounter - Danni Marcus RN - 04/09/2020 2:33 PM CDT Patient had video visit in January. Ashli Marcus RN Telephone Encounter - Danni Marcus RN - 10/15/2019 4:42 PM CDT Patient was seen in clinic on 09/11/19. Due for follow-up at the end of January. Ashli Marcus RN Telephone Encounter - Gisele Reed - 04/23/2019 11:02 AM CDT Postponing until schedules become available. Thanks Luis E Carreon Team Coodinator Telephone Encounter - Danni Marcus, RN - 04/23/2019 10:38 AM CDT Schedule follow-up appointment with Dr. Lai in July please. Ashli Marcus RN documented in this encounter Plan of Treatment Upcoming Encounters Date Type Specialty Care Team Description 11/15/2022 Virtual Visit Pharm Haylie Gonzalez, [facility] [address] [place] [phone] (Wo rk) 11/15/2022 Virtual Visit IM/Peds Yane Barraza MD [address] [place] [address] [place] [phone] (Wo rk) 03/03/2023 Virtual Visit Neurology Erlinda Barber MD [address] [facility] [address] [place], [place] [id number] (Wo rk) documented as of this encounter Visit Diagnoses Not on filedocumented in this encounter Additional Health Concerns Assessment Noted Time PHQ-9 Depression Total Score: 4 04/12/2019 7:03 AM CDT documented as of this encounter Care Teams Skiver Machine Relationship Specialty Start Date End Date Doris Lai MD PCP - General Internal Medicine 04/23/19 05/14/[address] [place] [address] [place] [id number] Galdino Valdez MD PCP - General Family Practice 11/29/19 02/12/20 [address] [place], [place] [id number] Jaiden Holcomb PCP - General Internal Medicine 02/13/2010/03 MD Jayesh [address] [address] Lucero Stevenson PCP - General 05/15/19 05/23/19 MD Annetta [facility] [address] [place], [place] [phone] Doris Lai MD PCP - General 05/24/19 11/28/19 [address] [address] Chastity Montero MD Dermatology 09/23/14 MD Martha [address] [facility] [address] [place], [place] [address] Johnnie Alcocer MD Surgeon General Surgery 03/23/17 [address] [place], [place] [address] Lucero Stevenson Assigned PCP 06/17/18 11/09/19 MD Annetta [facility] [address] [place], [place] [phone] Danni Marcus, CHANDLER Personal Advocate & 01/09/1901/17 Liaison (PAL) Kana Doshi [facility] Clinic Dethistler Operator Primary Care - CC 03/19/19 Mtm, Ea Complex 04/23/19 Svetlana Osman Pharmacist Pharmacotherapy 04/23/19 Era, [facility] [address] [place] [address] Haylie Cheung, Pharmacist Pharmacist 09/11/19 [facility] [address] [place] [address] Galdino Valdez MD Assigned PCP 11/10/19 05/23/20 [address] [place] [address] documented as of this encounter
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
--- OUTSIDE RECORDS SUMMARY | 2022-06-15 13:03 | XMS_ITS | Encounter Summary ---
:1945 Author Organization [place] Address [address] [place] [address] Care Team Providers Name Role Phone Chastity Montero MD Unavailable [phone] Johnnie Alcocer MD Unavailable Lucero Stevenson MD Unavailable [phone] Danni Marcus RN Unavailable Unavailable Kana Doshi Unavailable Mtm, Ea Complex Unavailable Unavailable Svetlana Osman [facility] Unavailable [phone] Doris Lai MD Primary Care Provider Encounter Details Date Type Department Care Team Description 04/24/2019 Travel Social History Tobacco Use Types Packs/Day [...] [facility] [address] [place] [address] (Wo rk) 11/15/2022 Virtual Visit [place] [address] [place] [address] [place] [address] (Wo rk) 03/03/2023 Virtual Visit Neurology Erlinda Barber MD [address] [facility] [address] [place] [address] (Wo rk) documented as of this encounter Visit Diagnoses Not on filedocumented in this encounter Additional Health Concerns Assessment Noted Time PHQ-9 Depression Total Score: 4 04/12/2019 7:03 AM CDT documented as of this encounter Care Teams Owner Operator Relationship Specialty Start Date End Date Doris Lai MD PCP - General Internal Medicine 04/23/19 05/14/[address] [place] [address] [place] [address] Chastity Montero MD Dermatology 09/23/14 MD Martha [address] [facility] 98 [place] [address] Johnnie Alcocer MD Surgeon General Surgery 03/23/17 [address] [facility] [address] [place] [address] Lucero Stevenson Assigned PCP 06/17/18 11/09/19 MD TOÑO Littlejohn [place] [address] [place] [address] Danni Marcus, RN Personal Advocate & 01/09/1901/17 Liaison (PAL) Kana Doshi CORONER Clinic Donor Services Specialist Primary Care - CC 03/19/19 Fernando, Ea Complex 04/23/19 Svetlana Osman Pharmacist Pharmacotherapy 04/23/19 Era, [facility] [address] [place] [address] documented as of this encounter
--- OUTSIDE RECORDS SUMMARY | 2022-06-15 13:03 | XMS_ITS | Encounter Summary ---
:1945 Author Organization [place] Address [address] [place] [address] Care Team Providers Name Role Phone Chastity Montero MD Unavailable [phone] Johnnie Alcocer MD Unavailable Lucero Stevenson MD Unavailable [phone] Danni Marcus RN Unavailable Unavailable Kana Doshi Unavailable Mtm, Ea Complex Unavailable Unavailable Svetlana Osman [facility] Unavailable [phone] Doris Lai MD Primary Care Provider Encounter Details Date Type Department Care Team Description 04/26/2019 Travel Social History Tobacco Use Types Packs/Day [...] [facility] [address] [facility] [place] [address] (Wo rk) 11/15/2022 Virtual Visit IM[place] [address] [place] [address] [place] [address] (Wo rk) 03/03/2023 Virtual Visit Neurology Erlinda Barber MD [address] [facility] [address] [place] [address] (Wo rk) documented as of this encounter Visit Diagnoses Not on filedocumented in this encounter Additional Health Concerns Assessment Noted Time PHQ-9 Depression Total Score: 4 04/12/2019 7:03 AM CDT documented as of this encounter Care Teams Bandage Winding Machine Operator Relationship Specialty Start Date End Date Doris Lai MD PCP - General Internal Medicine 04/23/19 05/14/[address] [place] [address] [place] [address] Chastity Montero MD Dermatology 09/23/14 MD Martha [address] [facility] [address] [place] [address] Johnnie Alcocer MD Surgeon General Surgery 03/23/17 [address] [facility] [address] [place] [address] Lucero Stevenson Assigned PCP 06/17/18 11/09/19 MD TOÑO Littlejohn [place] [address] [place] [address] Danni Marcus, RN Personal Advocate & 01/09/1901/17 Liaison (PAL) Kana Doshi FIBROUS WALLBOARD INSPECTOR Clinic Fitness Instructor Primary Care - CC 03/19/19 Fernando, Ea Complex 04/23/19 Svetlana Osman Pharmacist Pharmacotherapy 04/23/19 Era, [facility] [address] [facility] [place] [address] documented as of this encounter
--- OUTSIDE RECORDS SUMMARY | 2022-06-15 13:03 | XMS_ITS | Encounter Summary ---
:1945 Author Organization [place] Address [address] [place] [address] Care Team Providers Name Role Phone Chastity Montero MD Unavailable [phone] Johnnie Alcocer MD Unavailable Lucero Stevenson MD Unavailable Danni Marcus RN Unavailable Unavailable Kana Doshi Unavailable Mtm, Ea Complex Unavailable Unavailable LenaSvetlana gallegos [facility] Unavailable [phone] Doris Lai MD Primary Care Provider Reason for Visit Reason Onset Date Comments Dme 04/25/2019 Bariatric walker Encounter Details Date Type Department Care Team Description 04/25/2019 [facility] Nadya Lai MD Dme (Bariatric walker) [facility] [place] [address] [place] [address] [place] [address] [address] [place] [address] [phone] Social History Tobacco Use Types Packs/Day Years [...] 05/03/2021 organizations such as moravian groups, unions, [employer]se [employer] or athletic groups, or school groups? How [...] Telephone Encounter - Danni Marcus RN - 05/08/2019 2:15 PM CDT Per note from Unit Assembler, patient has received the Bariatric walker, and reports this is goingwell for her. Ashli Marcus RN Telephone Encounter - Danni Marcus RN - 04/25/2019 2:35 PM CDT Addended notes faxed to [facility] on 04/24. Check with patient in two weeks if she has received a call from [facility] regarding this walker. Ashli Marcus RN documented in this encounter Plan of Treatment Upcoming Encounters Date Type Specialty Care Team Description 11/15/2022 Virtual Visit Pharm D Haylie Cheung, [facility] [address] [facility] [place] [address] (Wo rk) 11/15/2022 Virtual Visit IM[place] [address] [place] [address] [place] [address] (Lena max) 03/03/2023 Virtual Visit Neurology Erlinda Barber MD [address] [facility] [address] [place] [address] (Wo rk) documented as of this encounter Visit Diagnoses Not on filedocumented in this encounter Additional Health Concerns Assessment Noted Time PHQ-9 Depression Total Score: 4 04/12/2019 7:03 AM CDT documented as of this encounter Care Teams Silk Soaker Relationship Specialty Start Date End Date Doris Lai MD PCP - General Internal Medicine 04/23/19 05/14/19 [address] [facility] [place] [address] Chastity Montero MD Dermatology 09/23/14 MD Martha [address] [facility] [address] [place], [place] [address] Johnnie lAcocer MD Surgeon General Surgery 03/23/[address] [place], [place] [id number] Lucero Stevenson Assigned PCP 06/17/18 11/09/19 MD Annetta [facility] [address] [place] [address] Danni Marcus, RN Personal Advocate & 01/09/1901/17 Liaison (PAL) Kana Doshi LSW Clinic Unit Assembler Primary Care - CC 03/19/19 Fernando, Ea Complex 04/23/19 Svetlana Osman Pharmacist Pharmacotherapy 04/23/19 Era, [facility] [address] [place] [address] documented as of this encounter
--- OUTSIDE RECORDS SUMMARY | 2022-06-15 13:03 | XMS_ITS | Encounter Summary ---
:1945 Author Organization [place] Address [address] [place] [address] Care Team Providers Name Role Phone Chastity Montero MD Unavailable [phone] Johnnie Alcocer MD Unavailable Lucero Stevenson MD Unavailable [phone] Danni Marcus RN Unavailable Unavailable Kana Doshi Unavailable Mtm, Ea Complex Unavailable Unavailable Svetlana Osman [facility] Unavailable [phone] Doris Lai MD Primary Care Provider Encounter Details Date Type Department Care Team Description 04/23/2019 Travel Social History Tobacco Use Types Packs/Day [...] [facility] [address] [facility] [place] [address] (Wo rk) 11/15/2022 Virtual Visit IM[place] [address] [place] [address] [place] [address] (Wo rk) 03/03/2023 Virtual Visit Neurology Erlinda Barber MD [address] [facility] 295 [place] [address] (Wo rk) documented as of this encounter Visit Diagnoses Not on filedocumented in this encounter Additional Health Concerns Assessment Noted Time PHQ-9 Depression Total Score: 4 04/12/2019 7:03 AM CDT documented as of this encounter Care Teams Plug Grower Relationship Specialty Start Date End Date Doris Lai MD PCP - General Internal Medicine 04/23/19 05/14/[address] [place] [address] [place] [address] Chastity Montero MD Dermatology 09/23/14 MD Martha [address] [facility] 98 [place] [address] Johnnie Alcocer MD Surgeon General Surgery 03/23/17 [address] [facility] [address] [place] [address] Lucero Stevenson Assigned PCP 06/17/18 11/09/19 MD TOÑO Littlejohn PAW [facility] [address] [place] [address] Danni Marcus, RN Personal Advocate & 01/09/1901/17 Liaison (PAL) Kana Doshi TURBINE ASSEMBLER Clinic Pricing Supervisor Primary Care - CC 03/19/19 Fernando, Ea Complex 04/23/19 Svetlana Osman Pharmacist Pharmacotherapy 04/23/19 Era, [facility] [address] [facility] [place] [address] documented as of this encounter
--- OUTSIDE RECORDS SUMMARY | 2022-06-15 13:03 | XMS_ITS | Encounter Summary ---
:1945 Author Organization [place] Address [address] [place] [address] Care Team Providers Name Role Phone Chastity Montero MD Unavailable [phone] Johnnie Alcocer MD Unavailable Lucero Stevenson MD Unavailable Danni Marcus RN Unavailable Unavailable Kana Doshi SULFURIC ACID PLANT SUPERVISOR Unavailable Mtm, Ea Complex Unavailable Unavailable BowlegsSvetlana gallegos [facility] Unavailable [phone] Doris Lai MD Primary Care Provider Reason for Visit Reason Onset Date Comments INR RESULTS 05/06/2019 Encounter Details Date Type Department Care Team Description 05/06/2019 Telephone [facility] Doris Aagrwal MD INR RESULTS [place] [address] [facility] [address] [facility] [place] [address] [address] [place] [address] [phone] Social History Tobacco Use Types Packs/Day Years [...] 05/03/2021 organizations such as christian groups, unions, fra[employer]ault or athletic groups, or school groups? How [...] Telephone Encounter - Sasha Rueda RN - 05/06/2019 3:24 PM CDT ANTICOAGULATION MANAGEMENT Patient Name: Charlette Brush Date: 05/06/2019 ASSESSMENT /SUBJECTIVE: Today's INR result of 3.8 is supratherapeutic. Goal INR of 2.0-3.0 ??? Warfarin dose taken: Warfarin taken as previously instructed ??? Diet: No new diet changes affecting INR ??? Medication changes/ interactions: just finishing 2 antibiotics. ??? Previous INR: Therapeutic ??? S/S of bleeding or thromboembolism: No ??? New injury or illness: No ??? Upcoming surgery, procedure or cardioversion: No ??? Additional findings: None PLAN: Detailed message left for Kana home care nurse regarding INR result and instructed: Warfarin Dosing Instructions: Hold x 1 day then resume 10 mg daily Instructed patient to follow up no later than: 1 week Education provided: No Instructed to call the Anticoagulation Clinic for any changes, questions or concerns. (#[phone]) OBJECTIVE: INR Date Value Ref Range Status 05/06/2019 3.9 (A) 0.8 - 1.1 Final 05/06/2019 3.8 (A) 0.8 - 1.1 Final Anticoagulation Summary As of 05/06/2019 INR goal: 2.0-3.0 TTR: 80.0 % (3.6 y) INR used for dosin.8! 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 use of 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 [Z79.01] Anticoagulation Episode Summary INR check location: Home Draw Preferred lab: Send INR reminders to: [facility] Comments: 3mg & 10mg tabs - devaughn dose / Interim Home Care qod - Kana [phone] / APPT CARD ONLY Anticoagulation Care Providers Provider Role Specialty Phone number Lucero Stevenson MD Internal Medicine [phone] documented in this encounter Plan of Treatment Upcoming Encounters Date Type Specialty Care Team Description 11/15/2022 Virtual Visit Pharm D Haylie Cheung, [facility] [address] [place] [address] [place] [address] (Lena max) 11/15/2022 Virtual Visit IM[place] [address] [place] [address] [place] [address] (Lena max) 03/03/2023 Virtual Visit Neurology Erlinda Barber MD [address] [facility] [address] [place] [address] (Lena max) documented as of this encounter Procedures Procedure Name Priority Date/Time Associated Diagnosis Comme nts INR Routine 05/06/2019 Results for thi s procedure are in the resu lts section. INR Routine 05/06/2019 Results for thi s procedure are in the resu lts section. documented in this encounter Results (ABNORMAL) INR (05/06/2019) P athologist Signature INR 3.8 (A) 0.8 - 1.1 EXTERNAL LAB Specimen (Source) Anatomical Location Collection Method / Collectio n Time Received Time / Laterality Volume Blood specimen 05/06/2019 (specimen) Resulting Agency Comment Home Care Patient Reported LAB - BLOOD ORDERABLES Performing Organization Address City/State/ZIP Code Phon e Number EXTERNAL LAB EXTERNAL LAB External Lab (ABNORMAL) INR (05/06/2019) P athologist Signature INR 3.9 (A) 0.8 - 1.1 EXTERNAL LAB Specimen (Source) Anatomical Location Collection Method / Collectio n Time Received Time / Laterality Volume Blood specimen 05/06/2019 (specimen) Resulting Agency Comment Home Care Patient Reported LAB - BLOOD ORDERABLES Performing Organization Address City/State/ZIP Code Phon e Number EXTERNAL LAB EXTERNAL LAB External Lab documented in this encounter Visit Diagnoses Diagnosis 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 embolism FDC current use of anticoagulant t herapy documented in this encounter Additional Health Concerns Assessment Noted Time PHQ-9 Depression Total Score: 4 04/12/2019 7:03 AM CDT documented as of this encounter Care Teams Streetcar Conductor Relationship Specialty Start Date End Date Doris Lai MD PCP - General Internal Medicine 04/23/19 05/14/19 [address] [facility] [address] [place] [id number] Chastity Montero MD Dermatology 09/23/14 MD Martha [address] [place] [address] 98 [place], [place] [address] Johnnie Alcocer MD Surgeon General Surgery 03/23/17 [address] [facility] 300 [place], [place] [id number] Lucero Stevenson Assigned PCP 06/17/18 11/09/19 MD Annetta [facility] [address] [place], [place] [id number] Danni Marcus, RN Personal Advocate & 01/09/1901/17 Liaison (PAL) Kana Doshi LSW Clinic Realty Specialist Primary Care - CC 03/19/19 Mtm, Ea Complex 04/23/19 Svetlana Osman Pharmacist Pharmacotherapy 04/23/19 Era, [facility] [address] [facility] [place] [address] documented as of this encounter
--- OUTSIDE RECORDS SUMMARY | 2022-06-15 13:03 | XMS_ITS | Encounter Summary ---
:1945 Author Organization [facility] Address [address] [place] [address] Care Team Providers Name Role Phone Chastity Montero MD Unavailable [phone] Johnnie Alcocer MD Unavailable Lucero Stevenson MD Unavailable [phone] Danni Marcus RN Unavailable Unavailable Kana Doshi GUNNERY/ORDNANCE OFFICER Unavailable Mtm, Ea Complex Unavailable Unavailable Svetlana Osman [facility] Unavailable [phone] Doris Lai MD Primary Care Provider Reason for Visit Reason Comments Seizures UMP NEW - SEIZURE Consultation (Routine) - Closed Specialty Diagnoses / Procedures Referred By Contact Refer red To Contact Diagnoses Seizure (H) Lucero Stevenson [facility] [address] [facility] [address] [place] [phone] Fax: Referral ID Status Reason Start Date Expiration Date Visits Requ ested Visits Authorized [id number] Closed 03/20/2019 03/19/2020 1 1 Encounter Details Date Type Department Care Team Description 04/24/2019 Office Visit [facility] Neurology Erlinda Barber MD Recurrent seizures [address] [facility] [address] [facility] (H) (Primary Dx) 3rd Floor [address] [place] [address] [phone] (Wo rk) Social History Tobacco Use Types [...] Sign Reading Time Taken Comments Blood Pressure 126/88 04/24/2019 1:00 PM CDT Pulse 83 04/24/2019 1:00 PM CDT Temperature - - Respiratory Rate - - Oxygen Saturation 94% 04/24/2019 1:00 PM CDT Inhaled Oxygen Concentration - - Weight 151.7 kg (334 lb 7 oz) 04/24/2019 1:00 PM CDT Height - - Body Mass Index 52.38 04/23/2019 9:26 AM CDT documented in this encounter Patient Instructions Patient Erlinda Rosario MD - 04/24/2019 1:20 PM CDT Times of Days am pm Medication Tablet Size Number of Tablets/Capsules Total Daily Dosage Keppra 500 1 1 1000 mg Carry this with you at all times. CONTINUE TAKING YOUR OTHER MEDICATIONS PREVIOUSLY DIRECTED. * * *Do not store medications in the bathroom. Keep medications away from children!* * * documented in this encounter Progress Notes Erlinda Barber MD - 04/24/2019 2:08 PM CDT Service Date: 04/24/2019 CHIEF COMPLAINT: New onset seizure. HISTORY OF PRESENT ILLNESS: This patient is a 74-year-old right-handed female presented today for evaluation and management of probable new onset seizure. She was recently discharged from the hospital a little over a month ago after a suspected seizure spell. The patient is accompanied by her daughterin the clinic today. She is currently taking Keppra 1000 mg daily. According to the patient and her daughter, [...] with loss of consciousness. No history of SLAB LIFTING ENGINEER infection. No history of febrile convulsions. No [...] (325 mg) by mouth daily (with breakfast) 100 tablet 3 ??? furosemide (LASIX) 40 MG tablet Take 0.5-1 tablets (20-40 mg) by mouth daily as needed (for leg swelling) 90 tablet 0 ??? hydrocortisone 2.5 % ointment Daily as needed 180 g 3 ??? levETIRAcetam (KEPPRA) 500 [...] tablet by mouth daily ??? nystatin (MYCOSTATIN) 390195 UNIT/GM external cream Apply topically daily as needed 0 ??? nystatin (NYSTOP) 708512 UNIT/GM external powder APPLY TOPICALLY TO THE [...] mouth daily 10 mg (1 pill) daily ??? ciprofloxacin (CIPRO) 500 MG tablet Take 1 tablet (500 mg) by mouth 2 times daily for 10 days 20tablet 0 ??? clindamycin (CLEOCIN) 300 MG capsule Take 1 capsule (300 mg) by mouth 3 times daily for 10 days 30 capsule 0 PAST ANTISEIZURE MEDICATIONS: None. ALLERGIES: Cephalexin, lanolin, [...] tonic-clonic seizures. SOCIAL HISTORY: She lives in [place]. She had regular classes in the past. She had bachelor's degree in economics, history and library science. 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 She is . She has 1 adult child. No smoking, no alcohol, no drug abuse. PHYSICAL EXAMS: Blood pressure 126/88, pulse 83, weight (!) 151.7 kg (334 lb 7 oz), SpO2 94 %, not currently . General exam: General Appearance: Obese, No acute distress. HEENT: Normocephalic, atraumatic. Neck: Supple, no lymphadenopathy, no carotid bruit. Cardiovascular: Regular rate and rhythm, no murmurs. Extremities: Bilateral lower extremity lymphedema Neurologic Exam: Alert and oriented x3. Speech fluent, appropriate. Normal attention, naming normal,repeat normal. Cranial Nerves: Pupils are equal, round, reactive to light and accomodation. Extraocular movement intact. No facial weakness or asymmetry. Facial sensation was normal. Tongue and palate midline. Hearing normal. Fundi exams were normal, discs were sharp. Visual field : normal to confrontation. Motor Exam: Normal bulk. Normal tone. Strength 5/5 in all extremities. Sensory: Decreased sensation in the left foot to all modalities. Deep tendon reflexes absent bilaterally in both upper and lower extremities. Coordination: Qumbgj-pn-faon showed no ataxia. No able to perform heel to bethea. Rapid alternating movement was normal. Gait and Station: normal casual gait. Not able to do tendem gait,tip-toe or heel walking. REVIEW OF SYSTEMS: Positive [...] MRI of the brain was negative, and the EEG showed the left temporal slowing and the left temporal epileptiform activities. Atthis time, we would like to continue the patient on antiepileptic treatment. She is currently on Keppra 1000 mg daily. We would like to change that to 500 mg b.i.d. We will repeat an EEG for further evaluation. 2. Lymphedema. 3. Hypertension. 4. Obstructive sleep apnea. 5. Pressure ulcer of the left buttock. PLAN: 1. Repeat outpatient EEG for 3 hours. 2. Continue Keppra, change to 500 mg twice daily. 3. Check Keppra level. 4. Return to clinic in 3 months. 60 min was spent on the visit. Over 50% of the time was spent on education, counseling about optimalseizure control and coordination of care. MD ERLINDA Armstrong MD MT: [place] Name: MARZENA EVANS Account: [id number] : 1945 Service Date: 04/24/2019 Document: [id number] documented in this encounter Nursing Notes Rashard Araujo EMT - 04/24/2019 1:20 PM CDT Chief Complaint Patient presents with ??? Seizures UMP NEW - SEIZURE IAN [place] documented in this encounter Plan of Treatment Upcoming Encounters Date Type Specialty Care Team Description 11/15/2022 Virtual Visit Pharm Haylie Gonzalez, [facility] [address] [place] [id number] (Wo rk) 11/15/2022 Virtual Visit IM/Peds Yane Barraza MD [address] [place] [id number] (Wo rk) 03/03/2023 Virtual Visit Neurology Erlinda Barber MD [address] [facility] 295 [place] [address] (Wo rk) Scheduled Orders Name Type Priority Associated Diagnoses Order S chedule EEG video monitoring Neurology Routine Recurrent seizures ( H) Ordered: 04/24/2019 documented as of this encounter Procedures Procedure Name Priority Date/Time Associated Diagnosis Comme nts KEPPRA Routine 04/24/2019 2:24 PM Recurrent seizures Res ults for this (LEVETIRACETAM) CDT (H) procedure ar e in LEVEL the results section. documented in this encounter Results Keppra (Levetiracetam) Level (04/24/2019 2:24 PM CDT) P athologist Signature Keppra 12 12 - 46 04/25/2019 [facility] (Levetiracetam ug/mL 3:25 PM CDT [facility] Comment: (Note) INTERPRETIVE INFORMATION: Keppra (Leveti racetam) Therapeutic Range: ??12-46 ug/mL ? Toxic: ??Not well Establ ished Pharmacokinetics of levetiracetam are af fected by renal function. Adverse effects may include so mnolence, weakness, headache and vomiting. This levetiracetam (Keppra) immunoassay uses the [employer] reagents, which has known cr oss-reactivity with the drug brivaracetam (Briviact) and may report inaccurate results. Patients transitioning from lev etiracetam to brivaracetam or those who are using both medications should not monitor drug concentrations with the [employer] assay. These patients should be monitore d using a validated chromatographic methodology that disting uishes between drugs to determine drug concentrations. Performed by [facility], [address] [place] [id number] [email or web address], Chu Barry MD, Lab. Director Specimen Anatomical Collection Method Collection Time Receive d Time (Source) Location / / Volume Laterality Blood specimen 04/24/2019 2:24 PM 019 2:25 (specimen) CDT PM CDT Erlinda Barber MD LAB - BLOOD ORDERABLES Performing Organization Address City/State/[facility] Code Phon e Number [address] [phone] [facility] documented in this encounter Visit Diagnoses Diagnosis Recurrent seizures (H) - Primary 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 documented in this encounter Additional Health Concerns Assessment Noted Time PHQ-9 Depression Total Score: 4 04/12/2019 7:03 AM CDT documented as of this encounter Care Teams Telegraphic Typewriter Operator Relationship Specialty Start Date End Date Doris Lai MD PCP - General Internal Medicine 04/23/19 05/14/19 [address] [facility] [place] [address] Chastity Montero MD Dermatology 09/23/14 MD Martha [address] [place] [address] [address] [place], [place] [address] Johnnie Alcocer MD Surgeon General Surgery 03/23/[address] [place] [address] Lucero Stevenson Assigned PCP 06/17/18 11/09/19 MD [facility] [address] [place] [address] Danni Marcus, RN Personal Advocate & 01/09/1901/17 Liaison (PAL) Kana Doshi [facility] Clinic Scoop Filler Primary Care - CC 03/19/19 Fernando, Ea Complex 04/23/19 Svetlana Osman Pharmacist Pharmacotherapy 04/23/19 Era, [facility] [address] [place] [address] documented as of this encounter
--- OUTSIDE RECORDS SUMMARY | 2022-06-15 13:03 | XMS_ITS | Encounter Summary ---
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 Follow up instructions given over the phone to Home Care nurse for warfarin management. SUBJECTIVE: Patient Findings Comments: Per Homecare nurse: No bleeding or concerning bruises No medication changes No change in diet or eating habits Clinical Outcomes Comments: Per Homecare nurse: No bleeding or concerning bruises No medication changes No change in diet or eating habits OBJECTIVE INR Date Value Ref Range Status 04/11/2019 2.1 (A) 0.9 - 1.1 Final ASSESSMENT / PLAN INR assessment THER Recheck INR In: 1 WEEK INR Location Homecare INR Anticoagulation Summary As of 04/11/2019 INR goal: 2.0-3.0 TTR: 80.5 % (3.5 y) INR used for dosin.1 (04/11/2019) Warfarin maintenance plan: 10 mg (10 mg x 1) every day Full warfarin instructions: 10 mg every day Weekly warfarin total: 70 mg No change documented: Qing Guy RN Plan last modified: Qing Guy RN (02/07/2019) Next INR check: 04/18/2019 Target end date: Indefinite Indications 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 Patient will continue same maintenance dose. Follow up in 1 week. Qing Guy, RN documented in this encounter Plan of Treatment Upcoming Encounters Date Type Specialty Care Team Description 11/15/2022 Virtual Visit Pharm Haylie Gonzalez, [facility] [address] [place] [address] (Wo rk) 11/15/2022 Virtual Visit IM/Peds Yane Barraza MD [address] [facility] [place] [address] (Wo rk) 03/03/2023 Virtual Visit Neurology Erlinda Barber MD [address] [facility] [address] [place] [address] (Wo rk) documented as of this encounter Procedures Procedure Name Priority Date/Time Associated Diagnosis Comme nts INR Routine 04/11/2019 1:43 PM Results f or this CDT procedure are i n the results section . documented in this encounter Results (ABNORMAL) INR (04/11/2019 1:43 PM CDT) P athologist Signature INR 2.1 (A) 0.9 - 1.1 [facility] Specimen (Source) Anatomical Collection Method Collection Time Re ceived Time Location / / Volume Laterality Blood specimen 04/11/2019 1:43 PM (specimen) CDT Lucero Stevenson MD LAB - BLOOD ORDERABLES Performing Organization Address City/State/ZIP Code Phon e Number [facility] [address] [place], [place] [address] documented in this encounter Visit Diagnoses Diagnosis nursing home current use of anticoagulant t herapy - Primary 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 embolism documented in this encounter Additional Health Concerns Assessment Noted Time PHQ-9 Depression Total Score: 4 04/12/2019 7:03 AM CDT documented as of this encounter Care Teams Capacity Planning Analyst Relationship Specialty Start Date End Date Lucero Stevenson PCP - General Pediatrics 10/11/11 04/22/19 MD Annetta Chastity Montero MD Dermatology 09/23/14 MD Martha [address] [facility] 98 [place] [address] Johnnie Alcocer MD Surgeon General Surgery 03/23/[address] [place] [address] Lucero Stevenson Assigned PCP 06/17/18 11/09/19 MD TOÑO Littlejohn [place] [address] [place] [address] Danni Marcus, RN Personal Advocate & 01/09/1901/17 Liaison (PAL) Kana Dosih LSW Clinic Supervisor [employer] Primary Care - CC 03/19/19 documented as of this encounter
--- OUTSIDE RECORDS SUMMARY | 2022-06-15 13:03 | XMS_ITS | Encounter Summary ---
:1945 Author Organization [place] Address [address] [place] [address] Care Team Providers Name Role Phone Lucero Stevenson MD Primary Care Provider [phone] Chastity Montero MD Unavailable [phone] Johnnie Alcocer MD Unavailable Lucero Stevenson MD Unavailable [phone] Danni Marcus RN Unavailable Unavailable Kana Dsohi Unavailable Reason for Visit Reason Onset Date Comments Orders 04/18/2019 Encounter Details Date Type Department Care Team Description 04/18/2019 Telephone [facility] Stefanie Stevenson Orders Eagan MD [address] [place] [address] [place] [address] [phone] Social History Tobacco Use Types Packs/Day Years [...] Telephone Encounter - Danni Marcus RN - 04/22/2019 10:53 AM CDT LM for CHANDLER Martinez, authorizing approval for orders noted below. Advised to call with any other questions or concerns. Patient has an appointment scheduled tomorrow with Dr. Stevenson. Ashli Marcus RN Telephone Encounter - Lucero Stevenson MD - 04/21/2019 11:35 AM CDT Orders accepted as below. 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 Thank you. [facility] documented in this encounter Plan of Treatment Upcoming Encounters Date Type Specialty Care Team Description 11/15/2022 Virtual Visit Haylie Wakefield, [facility] [address] [facility] [address] [place], [place] [id number] (Wo rk) 11/15/2022 Virtual Visit IM/Peds Yane Barraza MD [address] [facility] [address] [facility] [place] [address] (Wo rk) 03/03/2023 Virtual Visit Neurology Erlinda Barber MD [address] [place] [address] [facility] [address] [place], [place] [phone] (Wo rk) documented as of this encounter Visit Diagnoses Not on filedocumented in this encounter Additional Health Concerns Assessment Noted Time PHQ-9 Depression Total Score: 4 04/12/2019 7:03 AM CDT documented as of this encounter Care Teams Commodity Supervisor Relationship Specialty Start Date End Date Lucero Stevenson PCP - General Pediatrics 10/11/11 04/22/19 MD Annetta Chastity Montero MD Dermatology 09/23/14 MD Martha [address] [facility] 98 [place], [place] [address] Johnnie Alcocer MD Surgeon General Surgery 03/23/[address] [place], [place] [phone] Lucero Stevenson Assigned PCP 06/17/18 11/09/19 MD Annetta [address] [id number] Danni Marcus, RN Personal Advocate & 01/09/1901/17 Liaison (PAL) Kana Doshi LSW Clinic [employer] Crm Developer Primary Care - CC 03/19/19 documented as of this encounter
--- OUTSIDE RECORDS SUMMARY | 2022-06-15 13:03 | XMS_ITS | Encounter Summary ---
:1945 Author Organization [facility] Address Formerly [facility] [place] [address] Care Team Providers Name Role Phone Chastity Montero MD Unavailable [phone] Johnnie Alcocre MD Unavailable Lucero Stevenson MD Unavailable [phone] Danni Marcus RN Unavailable Unavailable Kana Doshi [employer] Unavailable Mtm, Ea Complex Unavailable Unavailable Svetlana Osman [facility] Unavailable [phone] Doris Lai MD Primary Care Provider Reason for Referral Consultation (Routine) - Closed Specialty Diagnoses / Procedures Referred By Contact Refer red To Contact Diagnoses Pressure injury of left buttock, stage 4 (H) Lucero Stevenson MD [facility] [address] [place] [address] Referral ID Status Reason Start Date Expiration Date Visits Requ ested Visits Authorized [id number] Closed 04/23/2019 04/22/2020 1 1 Reason for Visit Reason Comments Imm/Inj Flu Shot Seizures Lymphedema Hypertension Depression Encounter Details Date Type Department Care Team Description 04/23/2019 Office Visit [facility] Albert Stevenson MD [facility] [address] [place] [address] Transient confusion (Primary Dx); Clinic Yarelis martínez Ea Rn Pal Seizure (H); [address] Pressure i njury of left buttock, stage 4 (H); [address] Lymphedema of both lower ext remities; [address] Adjustment disorder with dep ressed mood; [place] [id number] Essential hypertension, josy gn; [phone] Morbid obesity -- BMI 55.6; Iron deficiency anemia due to chronic blood loss; Prediabetes; Need for prophy lactic vaccination and inoculation against influenza; alf curre nt use of 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 Social History Tobacco Use Types Packs/Day Years [...] Sign Reading Time Taken Comments Blood Pressure 122/68 04/23/2019 9:26 AM CDT Pulse 78 04/23/2019 9:26 AM CDT Temperature 36.3 ??C (97.4 ??F) 04/23/2019 9:26 AM CDT Respiratory Rate 18 04/23/2019 9:26 AM CDT Oxygen Saturation 96% 04/23/2019 9:26 AM CDT Inhaled Oxygen Concentration - - Weight 151.7 kg (334 lb 8 oz) 04/23/2019 9:26 AM CDT Height 170.2 cm (5' 7) 04/23/2019 9:26 AM CDT Body Mass Index 52.39 04/23/2019 9:26 AM CDT documented in this encounter Patient Instructions Patient InstructionsSvetlana Osman, CATIE - 04/23/2019 9:20 AM CDT Recommendations from today's Complex Care Team visit: Thank you for participating in our complex care team visit today! 1. Separate the iron from multivitamin and calcium, take later in the day, take with vitamin C. You may not need the calcium since you are a great milk drinker. We will check your iron levels when you do labs. 2. Urinary frequency, give trial off the Lasix. If you notice increased swelling off the Lasix, it is ok to take the Lasix as needed if you are retaining a lot of fluid, and see if this helps to alleviate the swelling. If this doesn't alleviate the swelling, please notify the clinic. Lasix may help to control your blood pressure. If you note your blood pressure is 140/90 or higher, please notify the clinic as we will need to adjust your blood pressure medication. 3. Consult with your sleep provider in [place]. If you need a referral, please let us know. 4. Influenza vaccine today. You will need to ask dermatology about getting the new shingles vaccine,Shingrix 5. Ask neurology about Keppra dose, usually twice daily dosing. Also ask about when Keppra level should be checked. 6. Dr. Stevenson has recommended you follow-up with Dr. Doris Lai. Next care team visit: 3 months It was a pleasure seeing you today! Please feel free to contact us with any questions or concerns you have. My Care Team Members Dr. Stevenson Nurse OKDY(s) Genevieve NICK (medication therapy management) is a service provided by a clinical pharmacist designed to help you get the most of out of your medicines. My Clinical Pharmacist's contact information: Svetlana Osman, Tia [facility] Medication Therapy Management Practitioner #[phone] It was great to speak with you today. I value your experience and would be very thankful for your time with providing feedback on our clinic survey. You may receive a survey via email or text message in the next few days. documented in this encounter Progress Notes Lucero Stevenson MD - 04/23/2019 9:20 AM CDT Subjective Charlette Brush is a 74 year old female who presents to clinic today for the following health issues: HPI Hypertension Follow-up Blood pressure has been elevated at last few office appointments . If this remains elevated, consider increasing Losartan to 100 mg ?? Do you check your blood pressure regularly outside of the clinic? Yes -infection control manager checks blood pressure a couple of times per week and is averaging in the 120/70s. ?? Are you following a low salt diet? Yes ?? Are your blood pressures ever more than 140 on the top number (systolic) OR more than 90 on the bottom number (diastolic), for example 140/90? No SEIZURE Patient was hospitalized in February with suspected seizure. Referred to Epilepsy clinic and patient has appointment on 04/24. Patient had been started on Keppra in the hospital. Advised patient to inquire about checking Levetiracetam level at the office appointment with Neurology. At office appointment in March, noted some cognitive slowing, but this may have been attributed to beginning Keppra. Cognition has improved and is back to baseline. Feels this improved in mid March. Does still note some fatigue but this has improved since hospitalization for the suspected seizure. Takes Keppra once daily in the am, and is wondering if she could take this at night instead or in divided doses? PRESSURE WOUND Patient sustained a fall in October 2017, and laid on the floor for 3 days. Developed necrotizing fascitis and has had a pressure wound on left buttocks since this episode. Referred to wound clinic at last visit. Discussed referral to wound clinic, and patient cancelled appointment to wound clinic. Has an appointment with magnetic grinder operator this afternoon. Would like a referral to Dr. Huggins in [place] at the [facility] wound clinic. LOWER EXTREMITY WEAKNESS ?? Patient ambulatory with a walker. ?? Would like to ambulate outdoors and requested a 4-wheeled rolling walker to be able to increase her physical activity. Patient reports that she never received the four-wheeled walker. Order was placed and faxed to [facility] in early March-will follow-up with them. DEPRESSION Referral to behavioral health. Had office appointment on 04/11/19. PHQ-9 SCORE 04/11/2019 PHQ-9 Total Score MyChart 4 (Minimal depression) PHQ-9 Total Score 4 LYMPHEDEMA Discussed at office appointment in December. Patient doesn't feel that the Lasix is helping to reduce swelling in lower extremities. May consider stopping Lasix, if it is determined there is no benefit to using it. Patient reports that it is difficult to know if her lower extremities are more swollen. Has lymphedema therapy. Weight at home was 323# a few days ago. ?? How many days per week do you miss taking your medication? 0 Patient Active Problem List Diagnosis ??? Essential hypertension, benign ??? Morbid obesity -- BMI 55.6 ??? CEFERINO on CPAP ??? CARDIOVASCULAR SCREENING; LDL GOAL LESS THAN 130 ??? Dermatitis, stasis ??? Health Fpc ??? Binge eating ??? Eczema ??? Prediabetes ??? Vitamin D deficiency ??? 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 ??? Pressure injury of left buttock, stage 4 (H) ??? Physical deconditioning ??? Lymphedema of both lower extremities ??? 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 Macular degeneration (senile) of retina ??? Corneal epithelial and basement membrane dystrophy ??? Nuclear sclerosis of both eyes ??? Cortical age-related cataract, both eyes ??? Adjustment reaction ??? Cataract ??? Injury of sciatic nerve ??? Myopia ??? Microscopic hematuria ??? Transient confusion ??? Seizure (H) ??? Lower extremity weakness ??? Anxiety ??? Need for prophylactic vaccination and inoculation against influenza ??? Iron deficiency anemia due to chronic blood loss ??? Adjustment disorder with depressed mood Past Surgical History: Procedure Laterality Date ??? [...] LENS IMPLANTATION; Surgeon: Bernabe Crespo MD; Location: [facility] ? ? TONSILLECTOMY & ADENOIDECTOMY Social History Tobacco Use ??? Smoking status: Never Smoker ??? Smokeless tobacco: Never Used Substance Use Topics ??? Alcohol use: No Frequency: Never Family History Problem Relation Age of Onset [...] ??? Macular Degeneration No family hx of Current Outpatient Medications Medication Sig Dispense Refill ??? ascorbic acid (VITAMIN C) 500 MG [...] needed 180 g 3 ??? levETIRAcetam (KEPPRA) 1000 MG tablet Take 1 tablet (1,000 mg) by mouth daily 60 tablet 3 ??? losartan (COZAAR) 50 MG tablet Take 1 tablet (50 mg) by mouth daily 90 tablet 1 ??? Multiple Vitamins-Minerals (PRESERVISION/LUTEIN) CAPS Take 1 tablet by mouth 2 times daily ??? multivitamin w/minerals (THERA-VIT-M) tablet Take 1 tablet by mouth daily ??? warfarin ANTICOAGULANT (COUMADIN) 10 MG tablet Take 1 tablet (10 mg) by mouth daily 10 mg (1 pill) daily ??? acetaminophen (TYLENOL) 325 MG tablet Take 2 tablets (650 mg) by mouth every 4 hours as needed for mild pain ??? nystatin (MYCOSTATIN) 395344 UNIT/GM external cream Apply topically daily as needed 0 ??? nystatin (NYSTOP) 701299 UNIT/GM external powder APPLY TOPICALLY TO THE AFFECTED AREA BENEATH BILATERAL BREAST/GROIN FOLDS TWICE DAILY UNTIL RESOLVED. 60 g 0 ??? order for DME Equipment being ordered: Bariatric 4-wheeled walker Seat width needs to be 20 inches or greater Handlebar width needs to be 22 inches or greater 1 each 0 Allergies Allergen Reactions ??? Cephalexin Hives Keflex - hives ??? Lanolin Other (See Comments) skin irritation ??? Lisinopril Cough ??? Neomycin Other (See Comments) skin irritation ??? Penicillins Hives ??? Bactroban [Mupirocin Calcium] Rash ??? Mupirocin Rash and Unknown BP Readings from Last 3 Encounters: 04/23/19 122/68 03/20/19 (!) 152/84 03/17/19 (!) 144/77 Wt Readings from Last 3 Encounters: 04/23/19 (!) 151.7 kg (334 lb 8 oz) 03/20/19 (!) 156 kg (343 lb 14.4 oz) 03/15/19 (!) 161 kg (355 lb) Reviewed and updated as needed this visit by Provider Review of Systems ROS COMP: ENT, cardiovascular, pulmonary, GI, , endocrine and psych systems are negative, except as otherwise noted. Alert and oriented, accompanied by her daughter, Lyndsay Musculoskeletal-Lower extremity weakness and is ambulatory with a walker. Neuro-Hospitalized this past summer for suspected seizure. Skin-Pressure wound on left buttocks for one year. Psych-Seeing a counselor for depression. Objective BP 122/68 (BP Location: Right arm, Patient Position: Sitting, Cuff Size: Thigh) Pulse 78 Temp 97.4 ??F (36.3 ??C) (Oral) Resp 18 Ht 1.702 m (5' 7) Wt (!) 151.7 kg (334 lb 8 oz) SpO2 96% BMI 52.39 kg/m?? Body mass index is 52.39 kg/m??. Vitals taken by Ashli Marcus RN Physical Exam GENERAL: Alert and no distress EYES: Eyes grossly normal to inspection, PERRL and conjunctivae and sclerae normal HENT: ear canals and TM's normal, nose and mouth without ulcers or lesions NECK: no adenopathy, no asymmetry, masses RESP: lungs clear to auscultation - no rales, rhonchi or wheezes CV: regular rate and rhythm, normal S1 S2, no S3 or S4, no murmur, click or rub ABDOMEN: soft, nontender and bowel sounds normal. Morbidly obese. MS: no gross musculoskeletal defects noted. Pt with severe bilateral lower extremity lymphedema, legwraps in place. SKIN: no suspicious lesions or rashes on visible skin NEURO: Normal strength and tone, mentation intact and speech normal PSYCH: mentation appears normal, affect normal/bright Labs reviewed in Epic Assessment & Plan I spent 40 min face to face with patient and daughter over 50 % in counseling on issues as detailed below. Problem List Items Addressed This Visit Transient confusion - Primary Cognition has improved to baseline and has not experienced any further episodes of confusion since two weeks post-hospitalization. Patient has a Sleep medicine provider in [place], and will schedule an appointment with him to assess functioning of CPAP. Has appointment with Neurology tomorrow for further evaluation. Seizure (H) Follow-up with Neurology tomorrow. Currently taking Keppra 1000 mg daily and will discuss dosing further tomorrow with Neurologist. Discussed that usual dosing is twice daily. Will discuss with Neurology the need to check Keppra level Fatigue may be attributed to Keppra. If patient will remain on once daily dosing-consider taking this in the evening, so fatigue doesn't interfere with daily activities. Pressure injury of left buttock, stage 4 (H) Pressure wound has been present for one year. Has decreased about 50% in size. Notes discharge daily. Referral placed for Dr. Kajal Huggins at [facility] Wound clinic in [place] per patient request. She has contact information for that office.. Also being followed by home care wound nurse who will visit patient today. Relevant Orders WOUND CARE REFERRAL Prediabetes Recheck A1C today-normal. Lab Results Component Value Date A1C 5.2 04/23/2019 A1C 5.6 05/30/2018 A1C 5.2 01/03/2017 A1C 5.4 01/01/2016 A1C 5.4 12/30/2014 Relevant Orders Hemoglobin A1c (Completed) Need for prophylactic vaccination and inoculation against influenza High-dose Flu vaccine given today. Relevant Orders INFLUENZA (HIGH DOSE) 3 VALENT VACCINE [96973] (Completed) ADMIN INFLUENZA (For MEDICARE Patients ONLY) [G0008] (Completed) Vaccine Administration, Initial [50587] (Completed) Morbid obesity -- BMI 55.6 BMI-53.86. Patient has made diet modifications. Is walking outside, but needs 4-wheeled bariatric walker to be able to ambulate safely outdoors. Therapist has recommended obtaining floor bike-which she can pedal on days the weather isn't conducive to ambulating outside. Lymphedema of both lower extremities Continues with Lymphedema therapy three times per week thru home care. Unsure if Lasix is helping to relieve the swelling, but is causing urinary frequency that interfereswith ADLs. Will trial stopping the Lasix. If patient notes increased swelling, may take Lasix on a prn basis. If this doesn't help to alleviate the swelling, please notify the clinic. Monitor weight daily, or every other day. alf current use of 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 Advised patient that with the Lymphedema and decreased mobility, I recommend she continue with anticoagulation therapy lifelong. Benefits outweigh the risk of a possible pulmonary embolism. Relevant Medications warfarin ANTICOAGULANT (COUMADIN) 10 MG tablet Iron deficiency anemia due to chronic blood loss Will recheck Ferritin and TIBC levels today. Concern for chronic blood loss due to draining pressure wound for the past year. Last Ferritin-34 in May 2018 Last Iron level-28 in May 2018 Last Iron binding capacity-329 in May 2018. Relevant Orders Ferritin (Completed) Iron and iron binding capacity FUTURE anytime (Completed) Essential hypertension, benign Blood pressure well controlled today. BP Readings from Last 3 Encounters: 04/23/19 122/68 03/20/19 (!) 152/84 03/17/19 (!) 144/77 Continue with Losartan 50 mg daily. Patient will trial stopping Lasix which may be helping to control the blood pressure. If she notes an increase in blood pressure >140/90, will increase Losartan to 100 mg daily. Relevant Medications furosemide (LASIX) 40 MG tablet atenolol (TENORMIN) 25 MG tablet losartan (COZAAR) 50 MG tablet Adjustment disorder with depressed mood Patient met with Behavioral Health. Ambivalent if this was helpful. PHQ-9 SCORE 04/11/2019 PHQ-9 Total Score MyChart 4 (Minimal depression) PHQ-9 Total Score 4 Advised patient that this was an intake visit and it may be beneficial to meet with her for an additional visit. BMI: Estimated body mass index is 53.86 kg/m?? as calculated from the following: Height as of 03/20/19: 1.702 m (5' 7). Weight as of 03/20/19: 156 kg (343 lb 14.4 oz). Weight management plan: Pt is working on increasing her activity level See Patient Instructions Return in about 3 months (around 07/24/2019). We discussed my leaving practice. Pt will see Dr. Doris Lai in follow up in 3 months. We will call patient to schedule appointment as scheduling template is not available. Scribe Disclosure: I, Danni Marcus RN, am serving as a scribe; to document services personally performed by Dr. Stevenson -based on data collection and the provider's statements to me. Provider Disclosure: I agree with above History, Review of Systems, Physical exam and Plan. I have reviewed the content of the documentation and have edited it as needed. I have personally performed the services documentedhere and the documentation accurately represents those services and the decisions I have made. Electronically signed by: Lucero Stevenson MD [facility] Svetlana Osman, [facility] - 04/23/2019 9:20 AM CDT Images from [...] wound care. Allergies/ADRs: Reviewed in [facility] Tobacco: No tobacco use Alcohol: not currently using Activity: She is planning on exercise program, Present with walker. PMH: Reviewed in [facility] CEFERINO on CPAP, she has pressure wound, injury to sciatic nerve. Medication Adherence/Access: Patient takes medications directly from bottles. Patient takes medications 2 time(s) per day. Per patient, misses medication 0 times per week. Medication barriers: none. The patient fills medications at [facility]: NO, fills medications at [facility]. [...] recommendations as an after visit summary. Svetlana Osman, JosephD [facility] Medication Therapy Management Practitioner #[phone] documented in this encounter Miscellaneous Notes Assessment & Plan Note - Danni Marcus RN - 04/23/2019 11:59 AM CDTAssociated Problem(s): Adjustment disorder with depressed mood Patient met with Behavioral Health. Ambivalent if this was helpful. PHQ-9 SCORE 04/11/2019 PHQ-9 Total Score MyChart 4 (Minimal depression) PHQ-9 Total Score 4 Advised patient that this was an intake visit and it may be beneficial to meet with her for an additional visit. Assessment & Plan Note - Danni Marcus RN - 04/23/2019 11:52 AM CDTAssociated Problem(s): Prediabetes (Resolved 04/23/2019) Recheck A1C today-normal. Lab Results Component Value Date A1C 5.2 04/23/2019 A1C 5.6 05/30/2018 A1C 5.2 01/03/2017 A1C 5.4 01/01/2016 A1C 5.4 12/30/2014 Assessment & Plan Note - Danni Marcus RN - 04/23/2019 11:49 AM CDTAssociated Problem(s): Iron deficiency anemia due to chronic blood loss (Resolved 09/12/2019) Will recheck Ferritin and TIBC levels today. Concern for chronic blood loss due to draining pressure wound for the past year. Last Ferritin-34 in May 2018 Last Iron level-28 in May 2018 Last Iron binding capacity-329 in May 2018. Assessment & Plan Note - Danni Marcus RN - 04/23/2019 11:45 AM CDTAssociated Problem(s): 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 Advised patient that with the Lymphedema and decreased mobility, I recommend she continue with anticoagulation therapy lifelong. The risk of PE outweighs the risk of coumadin in this patient. Assessment & Plan Note - Danni Marcus RN - 04/23/2019 11:44 AM CDTAssociated Problem(s): Need for prophylactic vaccination and inoculation against influenza (Resolved10/09/2021) High-dose Flu vaccine given today. Assessment & Plan Note - Danni Marcus RN - 04/23/2019 11:40 AM CDTAssociated Problem(s): Morbid obesity -- BMI 55-60 BMI-53.86. Patient has made diet modifications. Is walking outside, but needs 4-wheeled bariatric walker to be able to ambulate safely outdoors. Therapist has recommended obtaining floor bike-which she can pedal on days the weather isn't conducive to ambulating outside. Assessment & Plan Note - Danni Marcus RN - 04/23/2019 11:27 AM CDTAssociated Problem(s): Transient confusion (Resolved 04/23/2019) Cognition has improved to baseline and has not experienced any further episodes of confusion since two weeks post-hospitalization. Patient has a Sleep medicine provider in [place], and will schedule an appointment with him to assess functioning of CPAP. Has appointment with Neurology tomorrow for further evaluation. Assessment & Plan Note - Danni Marcus RN - 04/23/2019 10:28 AM CDTAssociated Problem(s): Essential hypertension, benign Blood pressure well controlled today. BP Readings from Last 3 Encounters: 04/23/19 122/68 03/20/19 (!) 152/84 03/17/19 (!) 144/77 Continue with Losartan 50 mg daily. Patient will trial stopping Lasix which may be helping to control the blood pressure. If she notes an increase in blood pressure >140/90, will increase Losartan to 100 mg daily. Assessment & Plan Note - Danni Marcus RN - 04/23/2019 10:25 AM CDTAssociated Problem(s): Lymphedema of both lower extremities Continues with Lymphedema therapy three times per week thru home care. Unsure if Lasix is helping to relieve the swelling, but is causing urinary frequency that interfereswith ADLs. Will trial stopping the Lasix. If patient notes increased swelling, may take Lasix on a prn basis. If this doesn't help to alleviate the swelling, please notify the clinic. Monitor weight daily, or every other day. Assessment & Plan Note - Danni Marcus RN - 04/23/2019 10:19 AM CDTAssociated Problem(s): Pressure injury of left buttock, stage 4 (H) (Resolved 10/09/2021) Pressure wound has been present for one year. Has decreased about 50% in size. Notes discharge daily. Referral placed for Dr. Kajal Huggins at [facility]ound clinic in [place] per patient request. She has contact information for that office.. Also being followed by home care wound nurse who will visit patient today. Assessment & Plan Note - Danni Marcus RN - 04/23/2019 10:15 AM CDTAssociated Problem(s): Seizure (H) Follow-up with Neurology tomorrow. Currently taking Keppra 1000 mg daily and will discuss dosing further tomorrow with Neurologist. Discussed that usual dosing is twice daily. Will discuss with Neurology the need to check Keppra level Fatigue may be attributed to Keppra. If patient will remain on once daily dosing-consider taking this in the evening, so fatigue doesn't interfere with daily activities. documented in this encounter Plan of Treatment Upcoming Encounters Date Type Specialty Care Team Description 11/15/2022 Virtual Visit Haylie Wakefield, [facility] [address] [place], [place] [id number] (Wo rk) 11/15/2022 Virtual Visit IM/Peds Yane Barraza MD [address] [place] [address] (Wo rk) 03/03/2023 Virtual Visit Neurology Erlinda Barber MD [address] [place] [address] (Wo rk) Scheduled Referrals Name Type Priority Associated Diagnoses Order S chedule WOUND CARE REFERRAL Referral Routine Pressure injury of le ft Ordered: 04/23/2019 buttock, stage 4 (H) documented as of this encounter Procedures Procedure Name Priority Date/Time Associated Diagnosis Comme nts IRON AND IRON Routine 04/23/2019 11:08 Iron deficiency Results for this BINDING CAPACITY AM CDT anemia due to procedure are in chronic blood loss the resul ts section. HEMOGLOBIN A1C Routine 04/23/2019 11:08 Prediabetes Results f or this AM CDT procedure are i n the results section. FERRITIN Routine 04/23/2019 11:08 Iron deficiency Results for this AM CDT anemia due to procedure are in chronic blood loss the resul ts section. documented in this encounter Results Hemoglobin A1c (04/23/2019 11:08 AM CDT) athologist Signature Hemoglobin A1C 5.2 0 - 5.6 % 04/23/2019 [place] 11:32 AM CDT [facility] [place] Comment: Normal <5.7% Prediabetes 5.7-6.4% ??Diab etes 6.5% or higher - adopted from ADA consensus guidelines. Specimen Anatomical Collection Method Collection Time Receive d Time (Source) Location / / Volume Laterality Blood specimen 04/23/2019 11:08 9 (specimen) AM CDT 11:10 AM CDT Lucero Stevenson MD LAB - BLOOD ORDERABLES Performing Organization Address City/State/ZIP Code Phon e Number [facility] [place] [address] [facility] [place] [address] Iron and iron binding capacity FUTURE anytime (04/23/2019 11:08 AM CDT) athologist Signature Iron 59 35 - 180 04/24/2019 [place] ug/dL 10:06 AM CDT [facility] Iron Binding 318 240 - 430 04/24/2019 [place] Cap ug/dL 10:09 AM CDT [facility] Iron Saturation 19 15 - 46 % 04/24/2019 [place] Index 10:09 AM CDT [facility] Specimen Anatomical Collection Method Collection Time Receive d Time (Source) Location / / Volume Laterality Blood specimen 04/23/2019 11:08 9 (specimen) AM CDT 11:10 AM CDT Lucero Stevenson MD LAB - BLOOD ORDERABLES Performing Organization Address City/State/ZIP Code Phon e Number [facility] [address] [place] [address] [facility] [address] [place], [place] [address] [facility] [address] [place] [address], [place] [phone] Ferritin (04/23/2019 11:08 AM CDT) athologist Signature Ferritin 92 8 - 252 04/24/2019 [facility] ng/mL 10:11 AM CDT [facility] Specimen Anatomical Collection Method Collection Time Receive d Time (Source) Location / / Volume Laterality Blood specimen 04/23/2019 11:08 9 (specimen) AM CDT 11:10 AM CDT Lucero Stevenson MD LAB - BLOOD ORDERABLES Performing Organization Address City/[facility]/ZIP Code Phon e Number [facility] [address] [place] [address] documented in this encounter Visit Diagnoses Diagnosis Transient confusion - Primary Unspecified psychosis Seizure (H) Other convulsions Pressure injury of left buttock, stage 4 (H) Lymphedema of both lower extremities Adjustment disorder with depressed mood Essential hypertension, benign Morbid obesity -- BMI 55.6 Morbid obesity 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 Iron deficiency anemia secondary to bloo d loss (chronic) Prediabetes Other abnormal glucose Need for prophylactic vaccination and in oculation against influenza alf current use of anticoagulant t herapy documented in this encounter Additional Health Concerns Assessment Noted Time PHQ-9 Depression Total Score: 4 04/12/2019 7:03 AM CDT documented as of this encounter Care Teams Mill Operator Helper Relationship Specialty Start Date End Date Doris Lai MD PCP - General Internal Medicine 04/23/19 05/14/19 [address] [facility] [address] [place], [place] [phone] Chastity Montero MD Dermatology 09/23/14 MD Martha [address] [facility] [address] [place], [place] [address] Johnnie Alcocer MD Surgeon General Surgery 03/23/[address] [place] [address] Lucero Stevenson Assigned PCP 06/17/18 11/09/19 MD Annetta [facility] [address] [place] [address] Danni Marcus, RN Personal Advocate & 01/09/1901/17 Liaison (PAL) Kana Doshi LSW Clinic Mining Analyst Primary Care - CC 03/19/19 Fernando, Kyle Complex 04/23/19 Svetlana Osman Pharmacist Pharmacotherapy 04/23/19 Era, [facility] [address] [place] [address] documented as of this encounter
--- OUTSIDE RECORDS SUMMARY | 2022-06-15 13:03 | XMS_ITS | Encounter Summary ---
:1945 Author Organization [place] Address [address] [place] [address] Care Team Providers Name Role Phone Lucero Stevenson MD Primary Care Provider [phone] Chastity Montero MD Unavailable [phone] Johnnie Alcocer MD Unavailable Lucero Stevenson MD Unavailable [phone] Danni Marcus RN Unavailable Unavailable Kana Doshi RELIEF MANAGER Unavailable Mtm, Ea Complex Unavailable Unavailable Svetlana Osman [facility] Unavailable [phone] Doris Lai MD Primary Care Provider Lucero Stevenson MD Primary Care Provider [phone] Doris Lai MD Primary Care Provider Encounter Details Date Type Department Care Team Description 04/05/2019 Orders Only [facility] Lucero Stevenson NOSPAULINE NOT YET Clinic Yarelis Littlejohn MD DEFINED (Primary Dx) [address] [place] [address] [address] [place] [address] [place] [address] [phone] Social History Tobacco Use Types Packs/Day Years [...] Gonzalez, [facility] [address] [place] [address] (Wo rk) 11/15/2022 Virtual Visit IM[place] [address] [place] [address] [place] [address] (Wo rk) 03/03/2023 Virtual Visit Neurology Erlinda Barber MD [address] [facility] 295 [place] [address] (Wo rk) documented as of this encounter Procedures Procedure Name Priority Date/Time Associated Diagnosis Comme nts Z RECERTIFICATION FELL CUTTER PT Routine 04/05/2019 DIAGNOSIS N OT YET DEFINED documented in this encounter Results RECERTIFICATION FELL CUTTER PT (04/05/2019) Narrative This result has an attachment that is no t available. Lucero Stevenson MD [employer] documented in this encounter Visit Diagnoses Diagnosis DIAGNOSIS NOT YET DEFINED - Primary documented in this encounter Care Teams Property Staff Accountant Relationship Specialty Start Date End Date Lucero Stevenson PCP - General Pediatrics 10/11/11 04/22/19 MD Annetta Doris Lai MD PCP - General Internal Medicine 04/23/19 05/14/19 [address] [facility] [address] [place], [place] [phone] Lucero Stevenson PCP - General 05/15/19 05/23/19 MD Annetta [facility] [address] [place], [place] [phone] Doris Lai MD PCP - General 05/24/19 11/28/19 [address] [facility] [place] [id number] Chastity Montero MD Dermatology 09/23/14 MD Martha [address] [facility] 98 [place], [place] [address] Johnnie Alcocer MD Surgeon General Surgery 03/23/17 [address] [facility] 300 [place], [place] [phone] Lucero Stevenson Assigned PCP 06/17/18 11/09/19 MD Annetta [facility] [address] [place] [address] Danni Marcus, CHANDLER Personal Advocate & 01/09/1901/17 Liaison (PAL) Kana Doshi LSW Clinic Budget Technician Primary Care - CC 03/19/19 Fernando, Ea Complex 04/23/19 Svetlana Osman Pharmacist Pharmacotherapy 04/23/19 Era, [facility] [address] [place] [address] documented as of this encounter
--- OUTSIDE RECORDS SUMMARY | 2022-06-15 13:03 | XMS_ITS | Encounter Summary ---
:1945 Author Organization [place] Address [address] [place] [address] Care Team Providers Name Role Phone Lucero Stevenson MD Primary Care Provider [phone] Chastity Montero MD Unavailable [phone] Johnnie Alcocer MD Unavailable Lucero Stevenson MD Unavailable [phone] Danni Marcus RN Unavailable Unavailable Kana Doshi Unavailable Encounter Details Date Type Department Care Team Description 04/18/[address] [facility] shelter current use of 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 (Primary Dx); Visit [facility] Personal history of pulmonar y embolism [address] [facility] [address] [place] [address] Social [...] encounter Progress Notes Qing Guy RN - 04/18/2019 2:15 PM CDT ANTICOAGULATION FOLLOW-UP Patient Name: Charlette Brush Date: 04/18/2019 Contact Type: Telephone Call received from Y[facility] Martinez [facility] nurse [phone], with INR result. Follow up instructions given over the phone to Home Care nurse for warfarin management. SUBJECTIVE: Patient Findings Comments: The patient was assessed for diet, medication, missed or extra doses, bruising or bleeding, with no problem findings. INR is therapeutic today. Patient will continue same maintenance dose. Follow up in 2 weeks. Clinical Outcomes Comments: The patient was assessed for diet, medication, missed or extra doses, bruising or bleeding, with no problem findings. INR is therapeutic today. Patient will continue same maintenance dose. Follow up in 2 weeks. 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 Patient will continue same maintenance dose. Follow up in 2 weeks. Qing Guy, RN documented in this encounter Plan of Treatment Upcoming Encounters Date Type Specialty Care Team Description 11/15/2022 Virtual Visit Pharm D Haylie Cheung, [facility] [address] [facility] [place] [address] (Wo rk) 11/15/2022 Virtual Visit IM/Peds Yane Barraza MD [address] [facility] [address] [place] [phone] (Wo rk) 03/03/2023 Virtual Visit Neurology Erlinda Barber MD [address] [facility] [address] [place] [address] (Wo rk) documented as of this encounter Procedures Procedure Name Priority Date/Time Associated Diagnosis Comme nts INR Routine 04/18/2019 1:07 PM Results f or this CDT procedure are i n the results section . 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 - Primary 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 embolism documented in this encounter Additional Health Concerns Assessment Noted Time PHQ-9 Depression Total Score: 4 04/12/2019 7:03 AM CDT documented as of this encounter Care Teams Wire Preparation Machine Tender Relationship Specialty Start Date End Date Lucero Stevenson PCP - General Pediatrics 10/11/11 04/22/19 MD Annetta Chastity Montero MD Dermatology 09/23/14 MD Martha [address] [facility] [address] [place], [place] [address] Johnnie Alcocer MD Surgeon General Surgery 03/23/17 [address] [facility] [address] [place], [place] [phone] Lucero Stevenson Assigned PCP 06/17/18 11/09/19 MD Annetta [address] [id number] Danni Marcus, RN Personal Advocate & 01/09/1901/17 Liaison (PAL) Kana Doshi LSW Clinic Dye Boarding Machine Operator Primary Care - CC 03/19/19 documented as of this encounter
--- OUTSIDE RECORDS SUMMARY | 2022-06-15 13:04 | XMS_ITS | Encounter Summary ---
:1945 Author Organization [place] Address [address] [facility] [place] [address] Care Team Providers Name Role Phone Lucero Stevenson MD Primary Care Provider [phone] Chastity Montero MD Unavailable [phone] Johnnie Alcocer MD Unavailable Lucero Stevenson MD Unavailable [phone] Danni Marcus RN Unavailable Unavailable Reason for Visit Reason Onset Date Comments Orders 03/15/2019 [facility] cpap supplies Appointment 03/15/2019 Needs follow up RENETTA: 01/20/17 Encounter Details Date Type Department Care Team Description 03/15/2019 Telephone [facility] Sleep BernabeRa jennifer MD Orders ([facility] [place] [address] supplies); Appointment [address] [place] [place] [address] (Needs follow up RENETTA: [facility] [place] [address] 01/20/17) [place] [address] [place] [address] (Work) [phone] Social History Tobacco Use Types Packs/Day Years [...] organizations such as oriental orthodox groups, unions, fraSimpleRelevance or athletic groups, or school groups? How [...] encounter Miscellaneous Notes Telephone Encounter - Svetlana Torres - 03/15/2019 12:31 PM CDT Orders received for cpap supplies from [facility]. Review of patient's chart shows that her last appointment was with Dr. Kidd on 01/20/17. Message left for the patient to call and schedule a follow up as she has not been seen in over 2 years. Orders faxed to Dr. Kidd at [facility]. Svetlana Torres [facility] documented in this encounter Plan of Treatment Upcoming Encounters Date Type Specialty Care Team Description 11/15/2022 Virtual Visit Pharm D Haylie Cheung, [facility] [address] [facility] [address] [place] [phone] (Wo rk) 11/15/2022 Virtual Visit [place] [address] [place] [address] [place] [phone] (Wo rk) 03/03/2023 Virtual Visit Neurology Erlinda Barber MD [address] [facility] 295 [place], [place] [phone] (Wo rk) documented as of this encounter Visit Diagnoses Diagnosis CEFERINO (obstructive sleep apnea) - Primary Obstructive sleep apnea (adult) (pediatr ic) documented in this encounter Care Teams Sleeping Car Porter Relationship Specialty Start Date End Date Lucero Stevenson PCP - General Pediatrics 10/11/11 04/22/19 MD Annetta Chastity Montero MD Dermatology 09/23/14 [address] [facility] 98 [place], [place] [address] Johnnie Alcocer MD Surgeon General Surgery 03/23/17 [address] [facility] 300 [place], [place] [phone] Lucero Stevenson Assigned PCP 06/17/18 11/09/19 MD TOÑO Littlejohn [place] [address] [place] [address] Danni Marcus, CHANDLER Personal Advocate & 01/09/1901/17 Liaison (PAL) documented as of this encounter
--- OUTSIDE RECORDS SUMMARY | 2022-06-15 13:04 | XMS_ITS | Encounter Summary ---
:1945 Author Organization [place] Address [address] [place] [address] Care Team Providers Name Role Phone Lucero Stevenson MD Primary Care Provider [phone] Chastity Montero MD Unavailable [phone] Johnnie Alcocer MD Unavailable Lucero Stevenson MD Unavailable [phone] Danni Marcus RN Unavailable Unavailable Encounter Details Date Type Department Care Team Description 03/15/2019 Travel Social History Tobacco Use Types Packs/Day [...] - [place] [address] [place] [address] (Wo rk) 11/15/2022 Virtual Visit IM/Peds Yane Barraza MD [address] [facility] [address] [place] [phone] (Wo rk) 03/03/2023 Virtual Visit Neurology Erlinda Barber MD [address] [facility] 295 [place], [place] [phone] (Wo rk) documented as of this encounter Visit Diagnoses Not on filedocumented in this encounter Care Teams Extractor Puller Relationship Specialty Start Date End Date Lucero Stevenson PCP - General Pediatrics 10/11/11 04/22/19 MD Annetta Chastity Montero MD Dermatology 09/23/14 [address] [facility] 98 [place], [place] [phone] Johnnie Alcocer MD Surgeon General Surgery 03/23/[address] [place], [place] [address] Lucero Stevenson Assigned PCP 06/17/18 11/09/19 MD TOÑO Littlejohn [place] [address] [place], [place] [phone] Danni Marcus, CHANDLER Personal Advocate & 01/09/1901/17 Liaison (PAL) documented as of this encounter
--- OUTSIDE RECORDS SUMMARY | 2022-06-15 13:04 | XMS_ITS | Encounter Summary ---
:1945 Author Organization [place] Address [address] [place] [address] Care Team Providers Name Role Phone Lucero Stevenson MD Primary Care Provider [phone] Chastity Montero MD Unavailable [phone] Johnnie Alcocer MD Unavailable Lucero Stevenson MD Unavailable [phone] Danni Marcus RN Unavailable Unavailable Kana Doshi Unavailable Reason for Visit Reason Onset Date Comments Patient/info Update 03/19/2019 Encounter Details Date Type Department Care Team Description 03/19/2019 Telephone [facility] Lucero Stevenson ent/info Update Clinic [place] Littlejohn [place] [address] [place] [address] [place] [address] [phone] Social History Tobacco Use Types Packs/Day Years [...] Telephone Encounter - Lucero Stevenson MD - 03/19/2019 4:41 PM CDT Will d/w patient tomorrow at visit. Lucero Stevenson MD Telephone Encounter - Katrina Pruitt - 03/19/2019 2:13 PM CDT Reason for call: Other Patient called regarding (reason for call): BP readings 174/95, 166/90 5min resting 166/95 10 activity Additional comments: states they are increasing as time as been going on and they will be faxing a sheet over to have scanned into her record. Patient has appointment scheduled for 03/20/19 Phone number to reach patient: Other phone number: [phone] Best Time: any Can we leave a detailed message on this number? Not Applicable documented in this encounter Plan of Treatment Upcoming Encounters Date Type Specialty Care Team Description 11/15/2022 Virtual Visit Pharm Haylie Gonzalez, [facility] [address] [facility] [place] [address] (Lena max) 11/15/2022 Virtual Visit IM/PedYane Muir MD [address] [facility] [place] [address] (Wo rk) 03/03/2023 Virtual Visit Neurology Erlinda Barber MD [address] [place] [address] [facility] 295 [place] [address] (Wo rk) documented as of this encounter Visit Diagnoses Not on filedocumented in this encounter Care Teams Heel Former Relationship Specialty Start Date End Date Lucero Stevenson PCP - General Pediatrics 10/11/11 04/22/19 MD Annetta Chastity Montero MD Dermatology 09/23/14 MD Martha [address] [facility] 98 [place] [address] Johnnie Alcocer MD Surgeon General Surgery 03/23/[address] [place], [place] [address] Lucero Stevenson Assigned PCP 06/17/18 11/09/19 MD Annetta [facility] [address] [place] [address] Danni Marcus, RN Personal Advocate & 01/09/1901/17 Liaison (PAL) Kana Doshi LSW Clinic Dean Of Graduate Studies Primary Care - CC 03/19/19 documented as of this encounter
--- OUTSIDE RECORDS SUMMARY | 2022-06-15 13:04 | XMS_ITS | Encounter Summary ---
:1945 Author Organization [place] Address [address] [place] [address] Care Team Providers Name Role Phone Lucero Stevenson MD Primary Care Provider [phone] Chastity Montero MD Unavailable [phone] Johnnie Alcocer MD Unavailable Lucero Stevenson MD Unavailable [phone] Danni Marcus RN Unavailable Unavailable Reason for Visit Reason Onset Date Comments Home Care/Hospice 03/04/2019 Orders Encounter Details Date Type Department Care Team Description 03/04/2019 Telephone [facility] Lucero Stevenson Home Care/Hospice Clinic Yarelis Littlejohn MD (Orders) [address] [place] [address] [place] [address] [phone] Social History Tobacco Use Types Packs/Day Years [...] encounter Miscellaneous Notes Telephone Encounter - Danni aMrcus, CHANDLER - 03/05/2019 8:10 AM CDT I called CHANDLER Mtz with home care, and gave verbal approval for Physical therapy orders per protocol. No further questions. Will call back if any other questions or concerns. Ashli Marcus RN Telephone Encounter - Chastity Matthews - 03/04/2019 4:35 PM CDT Bibi , Physical Therapist, is asking for verbal orders for P.T.; needs P.T./rehab stating 2 x / week for 3 weeks: 1 x / week for 1 week. Please call Bibi at [phone]. Thank you. [facility] documented in this encounter Plan of Treatment Upcoming Encounters Date Type Specialty Care Team Description 11/15/2022 Virtual Visit Pharm D Haylie Cheung, [facility] [address] [place] [address] (Wo rk) 11/15/2022 Virtual Visit [place] [address] [place] [address] [place] [address] (Wo winter) 03/03/2023 Virtual Visit Neurology Erlinda Barber MD [address] [facility] 295 [place] [address] (Wo rk) documented as of this encounter Visit Diagnoses Not on filedocumented in this encounter Care Teams Manager Union Relationship Specialty Start Date End Date Lucero Stevenson PCP - General Pediatrics 10/11/11 04/22/19 MD Annetta Chastity Montero MD Dermatology 09/23/14 [address] [facility] 98 [place], [place] [address] Johnnie Alcocer MD Surgeon General Surgery 03/23/17 [address] [facility] [address] [place], [place] [phone] Lucero Stevenson Assigned PCP 06/17/18 11/09/19 MD Annetta [address] [phone] Danni Marcus, CHANDLER Personal Advocate & 01/09/1901/17 Liaison (PAL) documented as of this encounter
--- OUTSIDE RECORDS SUMMARY | 2022-06-15 13:04 | XMS_ITS | Encounter Summary ---
:1945 Author Organization [facility] Address [address] [place] [address] Care Team Providers Name Role Phone Lucero Stevenson MD Primary Care Provider [phone] Chastity Montero MD Unavailable [phone] Johnnie Alcocer MD Unavailable Lucero Stevenson MD Unavailable [phone] Danni Marcus RN Unavailable Unavailable Kana Doshi Unavailable Encounter Details Date Type Department Care Team Description 04/04/2019 Anticoagulation Therapy [facility] 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 embolism; Visit Clinic [place] termite control service representative current use of ant icoagulant therapy [address] [facility] [address] [place] [address] Social History [...] encounter Progress Notes Qing Guy RN - 04/04/2019 2:15 PM CDT ANTICOAGULATION FOLLOW-UP Patient Name: Charlette Brush Date: 04/04/2019 Contact Type: Telephone Call received from Yina [...] OBJECTIVE INR Date Value Ref Range Status 04/04/2019 2.3 (A) 0.9 - 1.1 Final ASSESSMENT / PLAN INR assessment THER Recheck INR In: 1 WEEK INR Location Homecare INR Anticoagulation Summary As of 04/04/2019 INR goal: 2.0-3.0 TTR: 80.4 % (3.5 y) INR used for dosin.3 (04/04/2019) Warfarin maintenance plan: 10 mg (10 mg x 1) every day Full warfarin instructions: 10 mg every day Weekly warfarin total: 70 mg No change documented: Qing Guy RN Plan last modified: Qing Guy RN (02/07/2019) Next INR check: 04/11/2019 Target end date: Indefinite Indications 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] assisted current use of 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 [Z79.01] Anticoagulation Episode Summary INR check location: Clinic Lab Preferred lab: Send INR reminders to: ZHEN [place] Comments: 3mg & 10mg tabs - devaughn dose / [facility] qod - Kana [phone] / APPT CARD ONLY Anticoagulation Care Providers Provider Role Specialty Phone number Lucero Stevenson MD Internal Medicine [phone] See the Encounter Report to view Anticoagulation [...] Pharm Haylie Gonzalez, [facility] [address] [place] [address] (Wo rk) 11/15/2022 Virtual Visit IM/Peds Yane Barraza MD [address] [facility] [place] [address] (Wo rk) 03/03/2023 Virtual Visit Neurology Erlinda Barber MD [address] [facility] [address] [place] [address] (Wo rk) documented as of this encounter Procedures Procedure Name Priority Date/Time Associated Diagnosis Comme nts INR Routine 04/04/2019 1:19 PM Results f or this CDT procedure are i n the results section . documented in this encounter Results (ABNORMAL) INR (04/04/2019 1:19 PM CDT) P athologist Signature INR 2.3 (A) 0.9 - 1.1 EXTERNAL LAB Specimen (Source) Anatomical Location Collection Method / Collectio n Time Received Time / Laterality Volume Blood specimen (specimen) Resulting Agency Comment [facility] Lucero Stevenson MD LAB - BLOOD ORDERABLES Performing Organization Address City/State/ZIP Code Phon e Number EXTERNAL LAB EXTERNAL LAB External Lab documented in this encounter Visit Diagnoses Diagnosis 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 embolism assisted current use of anticoagulant t herapy documented in this encounter Care Teams Trucking Supervisor Relationship Specialty Start Date End Date Lucero Stevenson PCP - General Pediatrics 10/11/11 04/22/19 MD Annetta Chastity Montero MD Dermatology 09/23/14 MD Martha [address] [facility] [address] [place], [place] [address] Johnnie Alcocer MD Surgeon General Surgery 03/23/[address] [place] [address] Lucero Stevenson Assigned PCP 06/17/18 11/09/19 MD TOÑO Little[facility] [address] [place] [address] Danni Marcus, CHANDLER Personal Advocate & 01/09/1901/17 Liaison (PAL) Kana Doshi LSW Clinic [facility] Primary [facility] - CC 03/19/19 documented as of this encounter
--- OUTSIDE RECORDS SUMMARY | 2022-06-15 13:04 | XMS_ITS | Encounter Summary ---
:1945 Author Organization [employer] Address [address] [place] [address] Care Team Providers Name Role Phone Lucero Stevenson MD Primary Care Provider [phone] Chastity Montero MD Unavailable [phone] Johnnie Alcocer MD Unavailable Lucero Stevenson MD Unavailable [phone] Danni Marcus RN Unavailable Unavailable Encounter Details Date Type Department Care Team Description 03/05/2019 Anticoagulation [facility] Ruben Stevenson history of pulmonary embolism (Primary Dx); Therapy Visit Clinic [facility] [place], care home current use of ant icoagulant therapy [address] [facility] [address] [place] [address] [place], [place] [phone] [id number] Social History Tobacco Use Types Packs/Day Years [...] encounter Progress Notes Qing Guy RN - 03/05/2019 7:01 PM CDT ANTICOAGULATION FOLLOW-UP Patient Name: Charlette Brush Date: 03/05/2019 Contact Type: Telephone Call received from iYna [facility] nurse, with INR result. [...] OBJECTIVE INR Date Value Ref Range Status 03/05/2019 2.3 (A) 0.9 - 1.1 Final ASSESSMENT / PLAN INR assessment THER Recheck INR In: 2 WEEKS INR Location Homecare INR Anticoagulation Summary As of 03/05/2019 INR goal: 2.0-3.0 TTR: 80.0 % (3.4 y) INR used for dosin.3 (03/05/2019) Warfarin maintenance plan: 10 mg (10 mg x 1) every day Full warfarin instructions: 10 mg every day Weekly warfarin total: 70 mg No change documented: Qing Guy, CHANDLER Plan last modified: Qing Guy RN (02/07/2019) Next INR check: 03/21/2019 Target end date: Indefinite Indications 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 embolism [Z86.711] 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 Patient will continue same maintenance dose. Follow up in 2 weeks. Qing Guy RN documented in this encounter Plan of Treatment Upcoming Encounters Date Type Specialty Care Team Description 11/15/2022 Virtual Visit Pharm D Haylie Cheung, [facility] [address] [facility] [place] [address] (Wo rk) 11/15/2022 Virtual Visit IM/Peds Yane Barraza MD [address] [facility] [place] [address] (Wo rk) 03/03/2023 Virtual Visit Neurology Erlinda Barber MD [address] [facility] [address] [place] [address] (Wo rk) documented as of this encounter Procedures Procedure Name Priority Date/Time Associated Diagnosis Comme nts INR Routine 03/05/2019 11:17 AM Results for this CDT procedure are i n the results section . 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 current use of anticoagulant t herapy documented in this encounter Care Teams Commercial Floor Covering Installer Relationship Specialty Start Date End Date Lucero Stevenson PCP - General Pediatrics 10/11/11 04/22/19 MD Annetta Chastity Montero MD Dermatology 09/23/14 [address] [place] [address] [facility] [address] [place] [address] Johnnie Alcocer MD Surgeon General Surgery 03/23/17 [address] [facility] [address] [place], [place] [phone] Lucero Stevenson Assigned PCP 06/17/18 11/09/19 MD Annetta [facility] [address] [place], [place] [phone] Danni Marcus, CHANDLER Personal Advocate & 01/09/1901/17 Liaison (PAL) documented as of this encounter
--- OUTSIDE RECORDS SUMMARY | 2022-06-15 13:04 | XMS_ITS | Encounter Summary ---
:1945 Author Organization [facility] Address [address] [place] [address] Care Team Providers Name Role Phone Lucero Stevenson MD Primary Care Provider [phone] Chastity Montero MD Unavailable [phone] Johnnie Alcocer MD Unavailable Lucero Stevenson MD Unavailable [phone] Danni Marcus RN Unavailable Unavailable Kana Doshi Unavailable Reason for Referral Care Coordination (Routine) - Closed Specialty Diagnoses / Procedures Referred By Contact Refer red To Contact Diagnoses Other specified counseling [facility] [address] [place], [place] [phone] Referral ID Status Reason Start Date Expiration Date Visits Requ ested Visits Authorized [id number] Closed 03/19/2019 03/18/2020 1 1 Encounter Details Date Type Department Care Team Description 03/19/2019 Orders Only [facility] Lucero Stevenson r specified Care Coordination MD Annetta counseling [address] [place], [place] [address] [place] [address] [place] [address] (Wo rk) Social History Tobacco Use Types [...] Haylie Cheung, [facility] [address] [facility] [place] [id number] (Wo rk) 11/15/2022 Virtual Visit IM/Peds Yane Barraza MD [address] [facility] [place] [address] (Wo rk) 03/03/2023 Virtual Visit Neurology Erlinda Barber MD [address] [facility] [address] [place] [address] (Wo rk) documented as of this encounter Visit Diagnoses Diagnosis Other specified counseling documented in this encounter Care Teams Dental Receptionist Relationship Specialty Start Date End Date Lucero Stevenson PCP - General Pediatrics 10/11/11 04/22/19 MD Annetta Chastity Montero MD Dermatology 09/23/14 MD Martha [address] [facility] [address] [place] [address] Johnnie Alcocer MD Surgeon General Surgery 03/23/17 [address] [facility] [address] [place], [place] [address] Lucero Stevenson Assigned PCP 06/17/18 11/09/19 MD Annetta [place] [id number] [place] [address] Danni Marcus, CHANDLER Personal Advocate & 01/09/1901/17 Liaison (PAL) Kana Doshi LSW Clinic Genetic Technologist Primary Care - CC 03/19/19 documented as of this encounter
--- OUTSIDE RECORDS SUMMARY | 2022-06-15 13:04 | XMS_ITS | Encounter Summary ---
:1945 Author Organization [facility] Address [address] [place] [address] Care Team Providers Name Role Phone Lucero Stevenson MD Primary Care Provider [phone] Chatsity Montero MD Unavailable [phone] Johnnie Alcocer MD Unavailable Lucero Stevenson MD Unavailable [phone] Danni Marcus RN Unavailable Unavailable Kana Doshi Unavailable Encounter Details Date Type Department Care Team Description 03/21/2019 [facility] Ruben Stevenson history of pulmonary embolism; Therapy Visit Clinic [facility] [place], group home current use of ant icoagulant therapy [address] MD [facility] [address] [place] [address] [address] [place], [place] [phone] Social History Tobacco Use Types Packs/Day Years [...] encounter Progress Notes Qing Guy RN - 03/21/2019 9:59 AM CDT ANTICOAGULATION FOLLOW-UP Patient Name: Charlette Brush Date: 03/21/2019 Contact Type: Telephone Patient was seen by Dr. Stevenson in clinic yesterday. INR was done at lab. Result in INR in-basket today. Spoke to patient by phone. Instructions given for warfarin management. She has homecare that comes out to see her and they do INRs. 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 Started on Keppra in the hospital on 03/15/19. Per Micromedex: No interactions with warfarin found. INR was therapeutic yesterday. Patient will continue same maintenance dose. Follow up in 2 weeks. 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 Started on Keppra in the hospital on 03/15/19. Per Micromedex: No interactions with warfarin found. INR was therapeutic yesterday. Patient will continue same maintenance dose. Follow up in 2 weeks. OBJECTIVE INR Date Value Ref Range Status 03/20/2019 2.40 (H) 0.86 - 1.14 Final Comment: This test is intended for monitoring Coumadin therapy. Results are not accurate in patients with prolonged INR due to factor deficiency. 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] medical terminologist current use of 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 [Z79.01] Anticoagulation Episode Summary INR check location: Clinic Lab Preferred lab: Send INR reminders to: ZHEN [facility]OSS Comments: 3mg & 10mg tabs - devaughn dose / [facility] qod - Kana [phone] / APPT CARD ONLY Anticoagulation Care Providers Provider Role Specialty Phone number Lucero Stevenson MD Internal Medicine [phone] See the Encounter Report to view Anticoagulation Flowsheet and Dosing Calendar (Go to Encounters tabin chart review, and find the Anticoagulation Therapy Visit) INR was therapeutic yesterday. Patient will continue same maintenance dose. Follow up in 2 weeks. Qing Guy RN documented in this encounter Plan of Treatment Upcoming Encounters Date Type Specialty Care Team Description 11/15/2022 Virtual Visit Pharm Haylie Gonzalez, [facility] [address] [facility] [place] [address] (Lena max) 11/15/2022 [place] [address] [place] [address] [place] [address] (Lena max) 03/03/2023 Virtual Visit Neurology Erlinda Barber MD [address] [facility] [address] [place], [place] [address] (Lena max) documented as of this encounter Visit Diagnoses Diagnosis 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 embolism group home current use of anticoagulant t herapy documented in this encounter Care Teams Process Control Tech Relationship Specialty Start Date End Date Lucero Stevenson PCP - General Pediatrics 10/11/11 04/22/19 MD Annetta Chastity Montero MD Dermatology 09/23/14 MD Martha [address] [place] [address] [facility] [address] [place], [place] [phone] Johnnie Alcocer MD Surgeon General Surgery 03/23/17 [address] [place], [place] [phone] Lucero Stevenson Assigned PCP 06/17/18 11/09/19 MD Annetta [facility] [address] [place] [address] Danni Marcus, RN Personal Advocate & 01/09/1901/17 Liaison (PAL) Kana Doshi [facility] Clinic [facility] Primary Care - CC 03/19/19 documented as of this encounter
--- OUTSIDE RECORDS SUMMARY | 2022-06-15 13:04 | XMS_ITS | Encounter Summary ---
:1945 Author Organization [place] Address [address] [place] [address]. [place] [address] Care Team Providers Name Role Phone Lucero Stevenson MD Primary Care Provider Chastity Montero MD Unavailable [phone] Johnnie Alcocer MD Unavailable Lucero Stevenson MD Unavailable [phone] Danni Marcus RN Unavailable Unavailable Kana Doshi Unavailable Reason for Referral Consultation (Routine) - Closed Specialty Diagnoses / Procedures Referred By Contact Refer red To Contact Diagnoses Seizure (H) Lucero Stevenson, [facility] [address] [facility] [address] [place] [phone] Fax: Referral ID Status Reason Start Date Expiration Date Visits Requ ested Visits Authorized [id number] Closed 03/20/2019 03/19/2020 1 1 Consultation (Routine) - Closed Specialty Diagnoses / Procedures Referred By Contact Refer red To Contact Diagnoses Pressure injury of left buttock, stage 4 (H) Lucero Stevenson [facility] [address] [facility] [address] [facility] [address] [place] [address] [place] [phone] Fax: Referral ID Status Reason Start Date Expiration Date Visits Requ ested Visits Authorized [id number] Closed 03/20/2019 03/19/2020 1 1 Specialty Diagnoses / Procedures Referred By Contact Pamela [email or web address] To Contact Lucero Stevenson MD [facility] [address] [place] [address] Referral ID Status Reason Start Date Expiration Date Visits Requ ested Visits Authorized Scheduling Instructions ANTICOAGULATION CLINIC COLLABORATIVE [place] ACTICE AGREEMENT The following represents a collaborative practice agreement among the physicians of the Clinic and staff of the Anticoagulat ion Clinic Service ([facility]) Physicians shall: 1. Refer patients requiring anticoagulat ion to a specialty service staffed by personnel of Pharmacy Services and super vised by Clinic physicians. 2. Respond to questions and referrals fr om pharmacy staff regarding delinquent or difficult patients. 3. Inform the [facility] staff when a new patie nt is to be started on the service in a timely manner including the indication f or warfarin therapy and any variation from the protocol. Anticoagulation service staff shall: 1. Conduct an education program for each patient. 2. Assess each patient for their ability to comply with therapy and their understanding of anticoagulation therapy . 3. Order all doses and dose changes base d on a mutually agreed protocol. 4. Schedule patients for follow-up labor atory and consultation visits. 5. Assess each patient's INR and provide appropriate direction. 6. At each visit, assess each patient fo r his or her risk of adverse or sub-therapeutic effects including at kwaku st the following: Has the patient experienced any bleeding since the last INR Has the patient had any bacterial or vir al infections since the last INR Have any medications been added or ramsey ed or stopped since the last INR Has the patient had any symptoms of thro mboemboli since the last INR Has the patient had any dietary changes or changes in eating habits since the last INR Has the patient missed any warfarin/coum harika doses since the last INR Has the patient had a fever since the la st INR Has the patient had unusual diarrhea sin ce the last INR 7. Prepare new prescriptions and authori ze refills for anticoagulants. 8. Serve as a resource to and answer que stions from patients and staff. 9. Identify delinquent patients and init iate appropriate steps to ensure adequate follow-up and monitoring. 10. Refer delinquent patients and other problem situations to a physician for direction. 11. Initiate vitamin K therapy when sergio cated. Reason for Visit Reason Comments Hospital F/U Encounter Details Date Type Department Care Team Description 03/20/[address] [facility] Graham, Albert Littlejohn MD [facility] [address] [place] [address] [place] [address] Seizure (H) (Primary Dx); Clinic Yarelis martínez Ea Rn Pal Pressure injury of left buttock, stage 4 (H); [address] Weakness o f both lower extremities; [address] Essential hypertension, josy gn; [address] Adjustment disorder with dep ressed mood; [place] [phone] Personal history of pulmonar y embolism; [phone] intermission coordinator curre nt use of 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 Social [...] 05/03/2021 organizations such as confucianism groups, unions, fraternal or athletic groups, or [...] Sign Reading Time Taken Comments Blood Pressure 152/84 03/20/2019 1:46 PM CDT Pulse - - Temperature 36.6 ??C (97.9 ??F) 03/20/2019 1:46 PM CDT Respiratory Rate 18 03/20/2019 1:39 PM CDT Oxygen Saturation - - Inhaled Oxygen Concentration - - Weight 156 kg (343 lb 14.4 oz) 03/20/2019 1:46 PM CDT Height 170.2 cm (5' 7) 03/20/2019 1:39 PM CDT Body Mass Index 53.86 03/20/2019 1:39 PM CDT documented in this encounter Patient Instructions Patient InstructionsDanni Marcus RN - 03/20/2019 1:00 PM CDT Recommendations from today's Complex Care Team visit: Thank you for participating in our complex care team visit today! 1. We have placed a referral for the Epilepsy clinic. Please call to schedule an appointment within 2-4 weeks. If they aren't able to get you in within this time frame. 2. Discuss checking Labs at that visit. 3. Referral also placed for Wound care clinic. Please call to set up this appointment. Next care team visit: April 23 It was a pleasure seeing you today! Please feel free to contact us with any questions or concerns you have. My Care Team Members Dr. Stevenson Nurse KODY(s) Genevieve Fowler My Clinical Pharmacist's contact information: Svetlana Osman, [facility] Medication Therapy Management Practitioner #[phone] It was great to speak with you today. I value your experience and would be very thankful for your time with providing feedback on our clinic survey. You may receive a survey via email or text message in the next few days. documented in this encounter Progress Notes Lucero Stevenson MD - 03/20/2019 1:00 PM CDT Subjective Charlette D Leintz is a 74 year old female who presents to clinic today for the following health issues: [facility] Hospital Follow-up Visit: Hospital/Usp/IP Rehab Facility: [facility] Date of Admission: 03/15/19 Date of Discharge: 03/17/19 Reason(s) for Admission: Altered mental status, probable new seizure Problems taking medications regularly: None Medication changes since discharge: None-started on Keppra in the hospital Problems adhering to non-medication therapy: None Reports that she has no further seizure activity or speech difficulty since hospitalization. Denies headache, fever or chills since discharge. Reports that she had a headache the day she went into the ER for evaluation. Summary of hospitalization: [facility] discharge summary reviewed Diagnostic Tests/Treatments reviewed. Follow up needed: Neurology, INR Other Healthcare Providers Involved in Patient???s Care: Specialist appointment - Neurology Update since discharge: stable. Post Discharge Medication Reconciliation: discharge medications reconciled, continue medications without change. Plan of care communicated with patient and family Coding guidelines for this visit: Type of Medical Decision Making Oqqd-qy-Eieq Visit within 7 Days of discharge Pgml-jn-Efis Visit within 14 days of discharge Moderate Complexity [id number] High Complexity [id number] LOWER EXTREMITY WEAKNESS Pt with severe lymphedema [...] prepare meals and ambulate in her home. Seizure Reviewed discharge summary. It appears that the best guess is that this episode was a seizure; however the EEG was normal. No neurology follow up was set up on discharge. Pt is on Keppra with no further events; however daughter feels her thinking and speech are slow. Pt states its getting better. Noheadaches or fever. Is at home alone with a medic alert button. Does have a family history of seizure in her mother that developed in mid-late life. Wound Pt notes that she has not seen an actual wound care nurse in 4-5 months. Wound is not healing, wouldlike to see a specialist. Mood Daughter notes that patient has been dealing with a lot medically over the past year and wondered ifher mom would like to talk to someone. Charlette feels that this might be helfpul. Patient Active Problem List Diagnosis ??? Essential hypertension, benign ??? Morbid obesity -- BMI 55.6 ??? CEFERINO on CPAP ??? CARDIOVASCULAR SCREENING; LDL GOAL LESS THAN 130 ??? Dermatitis, stasis ??? Health Nursing Home ??? Binge eating ??? Eczema ??? Pre-diabetes ??? Vitamin D deficiency ??? intermission coordinator current use of 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 ??? Pressure [...] hematuria ??? Transient confusion ??? Seizure (H) Past Surgical History: Procedure Laterality Date ??? CHOLECYSTECTOMY, OPEN 1970 ??? COLONOSCOPY N/A 01/13/2015 Procedure: COLONOSCOPY; Surgeon: Jose Juan Castaneda MD; Location: OR ??? PHACOEMULSIFICATION CLEAR CORNEA WITH STANDARD INTRAOCULAR LENS IMPLANT Left 01/22/2019 Procedure: LEFT EYE CATARACT EXTRACTION WITH INTRAOCULAR LENS IMPLANTATION; Surgeon: Bernabe Crespo MD; Location: [facility] ??? PHACOEMULSIFICATION CLEAR CORNEA WITH STANDARD INTRAOCULAR LENS IMPLANT Right 02/20/2019 Procedure: RIGHT CATARACT EXTRACTION WITH INTRAOCULAR LENS IMPLANTATION; Surgeon: Bernabe Crespo MD; Location: [facility] ? ? TONSILLECTOMY & ADENOIDECTOMY Social [...] TAKE 1 TABLET BY MOUTH TWICE DAILY 180 tablet 0 ??? Calcium Carb-Cholecalciferol (CALCIUM + D3) 600-200 [...] 3 ??? furosemide (LASIX) 40 MG tablet TAKE 1 TABLET(40 MG) BY MOUTH DAILY 90 tablet 0 ??? hydrocortisone 2.5 % ointment Daily as needed 180 g 3 ??? levETIRAcetam (KEPPRA) 1000 MG tablet Take 1 tablet (1,000 mg) by mouth daily 60 tablet 3 ??? losartan (COZAAR) 50 MG tablet TAKE 1 TABLET(50 MG) BY MOUTH DAILY 90 tablet 0 ??? Multiple Vitamins-Minerals (PRESERVISION/LUTEIN) CAPS Take 1 tablet by mouth 2 times daily ??? multivitamin w/minerals (THERA-VIT-M) tablet Take 1 tablet by mouth daily ??? nystatin (MYCOSTATIN) 411597 UNIT/GM external cream Apply topically daily as needed 0 ??? nystatin (NYSTOP) 118897 UNIT/GM external powder APPLY TOPICALLY TO THE AFFECTED AREA BENEATH BILATERAL BREAST/GROIN FOLDS TWICE DAILY UNTIL RESOLVED. 60 g 0 ??? order for DME Equipment being ordered: Bariatric 4-wheeled walker Seat width needs to be 20 inches or greater Handlebar width needs to be 22 inches or greater 1 each 0 ??? warfarin (COUMADIN) 10 MG tablet Take 1 tablet (10 mg) by mouth daily 10 mg (1 pill) daily, except 5 mg (1/2 pill) on Monday and -- take at 6 PM. Allergies Allergen Reactions ??? Cephalexin Hives Keflex - hives ??? Lanolin Other (See Comments) skin irritation ??? Lisinopril Cough ??? Neomycin Other (See Comments) skin irritation ??? Penicillins Hives ??? Bactroban [Mupirocin Calcium] Rash ??? Mupirocin Rash and Unknown Reviewed and updated as needed this visit by Provider Review of Systems ROS COMP: Constitutional, HEENT, cardiovascular, pulmonary, GI, , musculoskeletal, neuro, skin, endocrine and psych systems are negative, except as otherwise noted. Neuro-Speech and thought processes are slow today. Recently began Keliliara in hospitalization. Objective BP (!) 152/84 Pulse (P) 84 Temp 97.9 ??F (36.6 ??C) (Oral) Wt (!) 343 lb 14.4 oz (156 kg) SpO2 (P) 94% BMI 53.86 kg/m?? Body mass index is 53.86 kg/m??. Vitals taken by Ashli Marcus RN Physical Exam GENERAL: alert and no distress EYES: Eyes grossly normal to inspection, PERRL and conjunctivae and sclerae normal HENT: ear canals and TM's normal, nose and mouth without ulcers or lesions NECK: no adenopathy, no asymmetry, masses, or scars and thyroid normal to palpation RESP: lungs clear to auscultation - no rales, rhonchi or wheezes CV: regular rate and rhythm, normal S1 S2, no S3 or S4, no murmur, click or rub, no peripheral edemaand peripheral pulses strong ABDOMEN: soft, nontender, no hepatosplenomegaly, no masses and bowel sounds normal MS: significant lymphedema BLE. Psych: Speech is slow, some word finding difficulties. Slightly tearful at times. Diagnostic Test Results: Labs reviewed in [facility] Assessment & Plan (R56.9) Seizure (H) (primary encounter diagnosis) -unclear if this is seizure, would benefit from seeing neurology in follow up -unclear if current mild cognitive delay is due to neurologic issue or a side effect of keppra -continue keppra for now, close follow up with neuro Plan: NEUROLOGY ADULT REFERRAL (L89.324) Pressure injury of left buttock, stage 4 (H) -will refer to wound care Plan: WOUND CARE REFERRAL (R27.828) Lower extremity weakness -pt would benefit from 4 wheeled rolling walker for home use -will complete face to face paperwork (I10) Essential hypertension, benign -bp elevated at home and here -as patient is currently under a lot of stress will continue to monitor for a week -if home bp's remain elevated will increase losartan to 100mg (F43.21) Adjustment disorder with depressed mood -pt with significant stress and feeling more sad -had her talk with [facility] today; they will set up follow up appointment (Z18.731) 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 embolism Plan: INR CLINIC REFERRAL (Z79.01) [facility] current use of 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 Plan: INR CLINIC REFERRAL, INR BMI: Estimated body mass index is 53.86 kg/m?? as calculated from the following: Height as of this encounter: 1.702 m (5' 7). Weight as of this encounter: 156 kg (343 lb 14.4 oz). Weight management plan: Discussed healthy diet and exercise guidelines FUTURE APPOINTMENTS: - Follow-up visit in 1 month, scheduled. Return in about 5 weeks (around 04/23/2019). Lucero Stevenson MD [facility] documented in this encounter Miscellaneous Notes Assessment & Plan Note - Lucero Stevenson MD - 03/20/2019 4:18 PM CDT Associated Problem(s): Adjustment reaction (Resolved 04/23/2019) -pt with significant stress and feeling more sad -had her talk with [facility] today; they will set up follow up appointment Assessment & Plan Note - Lucero Stevenson MD - 03/20/2019 4:17 PM CDT Associated Problem(s): Essential hypertension, benign -bp elevated at home and here -as patient is currently under a lot of stress will continue to monitor for a week -if home bp's remain elevated will increase losartan to 100mg Assessment & Plan Note - Lucero Stevenson MD - 03/20/2019 4:17 PM CDT Associated Problem(s): Left leg weakness -pt would benefit from 4 wheeled rolling walker for home use -will complete face to face paperwork Assessment & Plan Note - Lucero Stevenson MD - 03/20/2019 4:16 PM CDT Associated Problem(s): Pressure injury of left buttock, stage 4 (H) (Resolved 10/09/2021) -will refer to wound care Assessment & Plan Note - Lucero Stevenson MD - 03/20/2019 4:16 PM CDT Associated Problem(s): Seizure (H) -unclear if this is seizure, would benefit from seeing neurology in follow up -unclear if current mild cognitive delay is due to neurologic issue or a side effect of keppra -continue keppra for now, close follow up with neuro documented in this encounter Plan of Treatment Upcoming Encounters Date Type Specialty Care Team Description 11/15/2022 Virtual Visit Pharm Haylie Gonzalez, [facility] [address] [facility] [place] [place] [address] ([place]ena max) 11/15/2022 Virtual Visit IM/Peds Yane Barraza MD [address] [facility] [place] [address] ([place] max) 03/03/2023 Virtual Visit Neurology Erlinda Barber MD [address] [facility] [address] [place] [address] ([place] max) Scheduled Referrals Name Type Priority Associated Diagnoses Order S chedule INR CLINIC REFERRAL Referral Routine Personal history of O rdered: 03/20/2019 pulmonary emboli sm intermission coordinator current use of 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 WOUND CARE REFERRAL Referral Routine Pressure injury of le ft Ordered: 03/20/2019 buttock, stage 4 (H) NEUROLOGY ADULT Referral Routine Seizure (H) Ordered: 10/2018 REFERRAL documented as of this encounter Procedures Procedure Name Priority Date/Time Associated Diagnosis Comme nts INR Routine 03/20/2019 2:39 PM [facility] current use Results for this CDT of anticoagulant procedure a re in therapy the results section. documented in this encounter Results (ABNORMAL) INR (03/20/2019 2:39 PM CDT) athologist Signature INR 2.40 (H) 0.86 - 1.14 03/20/2019 [place] 2:47 PM CDT [facility] Comment: This test is intended for monitoring Cou madin therapy. ??Results are not accurate in patients with prolonged INR due to factor deficiency. Specimen Anatomical Collection Method Collection Time Receive d Time (Source) Location / / Volume Laterality Blood specimen 03/20/2019 2:39 PM 019 2:40 (specimen) CDT PM CDT Lucero Stevenson MD LAB - BLOOD ORDERABLES Performing Organization Address City/State/[facility] Code Phon e Number [facility] [address] [place] [id number] documented in this encounter Visit Diagnoses Diagnosis Seizure (H) - Primary Other convulsions Pressure injury of left buttock, stage 4 (H) Weakness of both lower extremities Essential hypertension, benign Adjustment disorder with depressed mood 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 embolism [facility] current use of anticoagulant t herapy documented in this encounter Care Teams Aircraft Magneto Mechanic Relationship Specialty Start Date End Date Lucero Stevenson PCP - General Pediatrics 10/11/11 04/22/19 MD Annetta Chastity Montero MD Dermatology 09/23/14 MD Martha [address] [facility] [address] [place], [place] [id number] Johnnie Alcocer MD Surgeon General Surgery 03/23/17 [address] [address] [place], [place] [id number] Lucero Stevenson Assigned PCP 06/17/18 11/09/19 MD Annetta [facility] [address] [place] [address] Danni Marcus, RN Personal Advocate & 01/09/1901/17 Liaison (PAL) Kana Doshi LSW Clinic Assistant City Attorney Primary Care - CC 03/19/19 documented as of this encounter
--- OUTSIDE RECORDS SUMMARY | 2022-06-15 13:04 | XMS_ITS | Encounter Summary ---
:1945 Author Organization [place] Address [address] [place] [id number] Care Team Providers Name Role Phone Lucero Stevenson MD Primary Care Provider Chastity Montero MD Unavailable [phone] Johnnie Alcocer MD Unavailable Lucero Stevenson MD Unavailable [phone] Danni Marcus RN Unavailable Unavailable Reason for Referral (Routine) Specialty Diagnoses / Procedures Referred By Contact Refer red To Contact Shiv Gay MD [address] [address] Referral ID Status Reason Start Date Expiration Date Visits Requ ested Visits Authorized [facility] (Routine) Specialty Diagnoses / Procedures Referred By Contact Refer red To Contact Shiv Gay MD [address] [address] Referral ID Status Reason Start Date Expiration Date Visits Requ ested Visits Authorized [facility] Health Therapies & Aides (Routine) Specialty Diagnoses / Procedures Referred By Contact Refer red To Contact Shiv Gay MD [address] [address] Referral ID Status Reason Start Date Expiration Date Visits Requ ested Visits Authorized Reason for Visit Reason Comments Altered Mental Status Auth/Cert Specialty Diagnoses / Procedures Referred By Contact Refer red To Contact Diagnoses Aphasia Thyromegaly Seizure (H) Pressure injury of left ischium, stage 3 (H) Open wound of tongue due to bite Seizure, suspected Altered mental status Seizure (H) Neuroscience [address] [id number] Phone: Referral ID Status Reason Start Date Expiration Date Visits Requ ested Visits Authorized [id number] 1 1 Encounter Details Date Type Department Care Team Description 03/15/2019 - [facility] Stefanielupe Sosa MD [facility] [address] [id number] Pain (Primary Dx); 03/17/2019 Encounter Kalyn Branham, [address] [address] Pressure injury of left ischium, stage 3 (H); Neuroscience Unit Aphasia; [address] Open wound of tongue due to bite; [address] Seizure, [place]; [id number] Thyromegaly; [phone] manager long term care curre nt use of 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; Seizure (H); Lymphedema of b [facility] lower extremities; Transient alter ation of awareness Social History Tobacco Use Types Packs/Day Years [...] Sign Reading Time Taken Comments Blood Pressure 144/77 03/17/2019 3:27 PM CDT Pulse 55 03/17/2019 3:45 AM CDT Temperature 36.3 ??C (97.3 ??F) 03/17/2019 3:27 PM CDT Respiratory Rate 20 03/17/2019 3:27 PM CDT Oxygen Saturation 96% 03/17/2019 3:27 PM CDT Inhaled Oxygen Concentration - - Weight 161 kg (355 lb) 03/15/2019 5:03 PM CDT Height - - Body Mass Index 55.6 02/06/2019 9:07 AM CDT documented in this encounter Discharge Summaries Shiv Gay MD - 03/17/2019 3:06 PM CDT [facility] Discharge Summary Hospitalist Date of Admission: 03/15/2019 Date of Discharge: 03/17/2019 Discharging Provider: Shiv Gay MD Discharge Diagnoses Principal Problem: Altered mental status Probable New Seizure disorder Active Problems: Essential hypertension, benign Morbid obesity -- BMI 55.6 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 She spoke to her daughter last night on the phone and her speech was normal at that time. She was noted to be confused with speech difficulties and possible left facial droop at home this afternoon around 3pm. She also had dried blood streaking down her face and she had bitten her tongue. In the ED she was not a code stroke, but did undergo CT imaging to rule out stroke. She had an episode where she was unresponsive for about 30 minutes that was proceeded by some groaning. She was not evaluated by physician during this episode. Neurology was called by ED and recommendation made for 2000mg keppra to be given now and seizure workup to occurtomorrow. During my exam she is able to participate, but when she speaking she begins to make sense,then quickly veers off into saying random words that aren't related to the topic at hand or are portions of words (pillows instead of pills). She has had hx transient confusion in the past. Hospital Course Admitted to neurology floor, treated with Keppra 1000 mg bid for presumed seizure with post-ictal confusion, and no further episodes, and the aphasia was resolved in 1-2 hours, and the confusion cleared in 24 hours. She was noted to have a bite keyla on her tongue as well, and was treated with topical viscous lidocaine, 2% solution prn. Was seen by Dr. Purvis from neurology. Did have EEG with video monitoring, no definitive seizure activity seen while here. Was seen by PT and OT and speech, and advices ongoing PT and OT at home, and wound care nurse to continue to pack herleft ischial pressure sore wound daily as they have been doing at home. Initial INR here was 2.09, was given 10 mg warfarin daily, and at discharge INR was 2.92, but her daughter reports she eats a large salad daily at home, so will keep the warfarin does the same at 10 mgdaily, and will check INR on 03/20/19, with goal of INR 2.0 to 3.0. Shiv Gay MD, MD Pager: [phone] Cell Significant Results and Procedures As above Pending Results These results will be followed up by Dr. Gay Unresulted Labs Ordered in the Past 30 Days of this Admission No orders found from 02/13/2019 to 03/16/2019. Code Status Full Code Primary Care Physician Lucero Stevenson Physical Exam Temp: 97.8 ??F (36.6 ??C) Temp src: Oral BP: 114/57 Pulse: 55 Heart Rate: 67 Resp: 16 SpO2: 95 % O2 Device: None (Room air) Vitals: 03/15/19 1703 Weight: (!) 161 kg (355 lb) Vital Signs with Ranges Temp: [97.8 ??F (36.6 ??C)-98.3 ??F (36.8 ??C)] 97.8 ??F (36.6 ??C) Pulse: [55] 55 Heart Rate: [55-70] 67 Resp: [16-18] 16 BP: (114-163)/(57-85) 114/57 SpO2: [95 %-96 %] 95 % I/O last 3 completed shifts: In: - Out: 1000 [Urine:1000] Exam on discharge: Alert, Ox3 Obese Lungs -- clear CV with reg S1S2 Discharge Disposition Discharged to home with RN, PT and OT Condition at discharge: Stable Consultations This Hospital Stay PHARMACY TO DOSE WARFARIN NEUROLOGY IP CONSULT PHYSICAL THERAPY ADULT IP CONSULT OCCUPATIONAL THERAPY ADULT IP CONSULT CARE AIR POLLUTION SPECIALIST/SW IP CONSULT WOUND OSTOMY CONTINENCE NURSE IP CONSULT SPEECH BANK BOSS ADULT IP CONSULT PHARMACY TO DOSE WARFARIN Time Spent on this Encounter I spent a total of 35 minutes discharging this patient. Discharge Orders Home care nursing referral Home Care PT Referral for Hospital Discharge Home Care OT Referral for Hospital Discharge Reason for your hospital stay Confusion, probably related to seizure. Follow-up and recommended labs and tests Follow up with primary care provider, Lucero Stevenson, as scheduled on 03/20/2019, checkINR then. Activity Your activity upon discharge: activity as tolerated, up with walker Discharge Instructions Call Dr. Gay if any medical questions at Cell . face to face encounter Documentation of Face to Face and Certification for Home Health Services I certify that patient: Marzena Evans is under my care and that I, or a nurse practitioner or physician's circulation assistant working with me, had a [id number] encounter that meets the physician [id number] encounter requirements with this patient on: 03/17/2019. This encounter with the patient was in whole, or in part, for the following medical condition, whichis the primary reason for home health care: confusion related to new seizure disorder, and ongoing wound care. I certify that, based on my findings, the following services are medically necessary home health services: Nursing, Occupational Therapy and Physical Therapy. My clinical findings support the need for the above services because: Nurse is needed: To assess safety after changes in medications or other medical regimen.. Further, I certify that my clinical findings support that this patient is homebound (i.e. absences from home require considerable and taxing effort and are for medical reasons or mandaen services or infrequently or of short duration when for other reasons) because: Leaving home is medically contraind icated for the following reason(s): Other physician ordered restriction: needs assistance with ambulation ... Based on the above findings. I certify that this patient is confined to the home and needs intermittent shelter care, physical therapy and/or speech therapy. The patient is under my care, and socorro initiated the establishment of the plan of care. This patient will be followed by a physician who will periodically review the plan of care. Physician/Provider to provide follow up care: Lucero Stevenson Attending [facility] physician (the Medicare certified [place] provider): Shiv Gay MD Physician Signature: See electronic signature associated with these discharge orders. Date: 03/17/2019 Wound care and dressings Instructions to care for your wound at home: resume daily wound packing with absorbant material, and cover with gauze (continue present home wound care) for left gluteal area. Full Code Diet Follow this diet upon discharge: Orders Placed This Encounter Room Service Regular Diet Adult Discharge Medications Current Discharge Medication List START taking these medications Details levETIRAcetam (KEPPRA) 1000 MG tablet Take 1 tablet (1,000 mg) by mouth daily Qty: 60 tablet, Refills: 3 Comments: Future refills by PCP Dr. Lucero Stevenson with phone number [phone]. Associated Diagnoses: Seizure (H) CONTINUE these medications which have CHANGED Details acetaminophen (TYLENOL) 325 MG tablet Take 2 tablets (650 mg) by mouth every 4 hours as needed for mild pain Associated Diagnoses: Pain warfarin (COUMADIN) 10 MG tablet Take 1 tablet (10 mg) by mouth daily 10 mg (1 pill) daily, except 5mg (1/2 pill) on Monday and -- take at 6 PM. Associated Diagnoses: manager long term care current use of 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 CONTINUE these medications which have NOT CHANGED Details ascorbic acid (VITAMIN C) 500 MG tablet Take 500 mg by mouth daily atenolol (TENORMIN) 25 MG tablet TAKE 1 TABLET BY MOUTH TWICE DAILY Qty: 180 tablet, Refills: 0 Associated Diagnoses: Essential hypertension, benign Calcium Carb-Cholecalciferol (CALCIUM + D3) 600-200 MG-UNIT TABS Take 1 tablet by mouth daily cetirizine (ZYRTEC) 10 MG tablet Take 10 mg by mouth 2 times daily Cholecalciferol (VITAMIN D PO) Take 2,000 Units by mouth daily desoximetasone (TOPICORT) 0.05 % GEL Apply topically 2 times daily as needed for inflammation or itching FEROSUL 325 (65 Fe) MG tablet Take 1 tablet (325 mg) by mouth daily (with breakfast) Qty: 100 tablet, Refills: 3 Associated Diagnoses: Iron deficiency anemia, unspecified iron deficiency anemia type furosemide (LASIX) 40 MG tablet TAKE 1 TABLET(40 MG) BY MOUTH DAILY Qty: 90 tablet, Refills: 0 Associated Diagnoses: Essential hypertension, benign hydrocortisone 2.5 % ointment Daily as needed Qty: 180 g, Refills: 3 Associated Diagnoses: Dermatitis ketorolac (ACULAR) 0.5 % ophthalmic solution Apply 1 drop to eye 3 times daily Refills: 1 losartan (COZAAR) 50 MG tablet TAKE 1 TABLET(50 MG) BY MOUTH DAILY Qty: 90 tablet, Refills: 0 Associated Diagnoses: Essential hypertension, benign Multiple Vitamins-Minerals (PRESERVISION/LUTEIN) CAPS Take 1 tablet by mouth 2 times daily multivitamin w/minerals (THERA-VIT-M) tablet Take 1 tablet by mouth daily nystatin (MYCOSTATIN) 747874 UNIT/GM external cream Apply topically daily as needed Refills: 0 nystatin (NYSTOP) 591669 UNIT/GM external powder APPLY TOPICALLY TO THE AFFECTED AREA BENEATH BILATERAL BREAST/GROIN FOLDS TWICE DAILY UNTIL RESOLVED. Qty: 60 g, Refills: 0 Associated Diagnoses: Pressure ulcer of ischium, left, stage IV (H) ofloxacin (OCUFLOX) 0.3 % ophthalmic solution Apply 1 drop to eye 3 times daily Refills: 1 !! order for DME Equipment being ordered: Bariatric 4-wheeled walker Qty: 1 each, Refills: 0 Associated Diagnoses: Lymphedema of both lower extremities; Morbid obesity (H); Left foot drop !! order for DME Equipment being ordered: Bariatric 4-wheeled walker Seat width needs to be 20 inches or greater Handlebar width needs to be 22 inches or greater Qty: 1 each, Refills: 0 Associated Diagnoses: Lymphedema of both lower extremities; Morbid obesity (H); Left foot drop prednisoLONE acetate (PRED FORTE) 1 % ophthalmic suspension Apply 1 drop to eye 3 times daily Refills: 1 !! - Potential duplicate medications found. Please discuss with provider. Allergies Allergies Allergen Reactions ??? Cephalexin Hives Keflex - hives ??? Lanolin Other (See Comments) skin irritation ??? Lisinopril Cough ??? Neomycin Other (See Comments) skin irritation ??? Penicillins Hives ??? Bactroban [Mupirocin Calcium] Rash ??? Mupirocin Rash and Unknown Data Most Recent 3 CBC's: Recent Labs Lab Test 03/16/19 0807 03/15/19 1724 01/07/19 1508 WBC 6.1 7.5 8.4 HGB 12.7 14.3 14.4 MCV 90 90 90 PLT 240 281 311 Most Recent 3 BMP's: Recent Labs Lab Test 03/16/19 0807 03/15/19 1724 02/13/19 1412 NA 143 140 140 POTASSIUM 3.7 4.0 4.6 CHLORIDE 110* 107 108 CO2 29 28 30 BUN 19 26 25 CR 0.56 0.41* 0.49* ANIONGAP 4 5 2* TOMA 8.7 9.1 9.1 GLC 87 128* 77 Most Recent 2 LFT's: Recent Labs Lab Test 03/15/19 1724 01/09/19 1053 AST 24 23 ALT 25 24 ALKPHOS 109 102 BILITOTAL 0.5 0.6 Most Recent INR's and Anticoagulation Dosing History: Anticoagulation Dose History Recent Dosing and Labs Latest Ref Rng & Units 02/07/2019 02/18/2019 02/20/2019 03/05/2019 03/15/2019 03/16/2019 03/17/2019 Warfarin 10 mg - - - - - 10 mg 10 mg - INR 0.86 - 1.14 2.7(A) 2.6(A) 2.4(A) 2.3(A) 2.09(H) 2.48(H) 2.92(H) INR 0.86 - 1.14 - - - - - - - Most Recent 3 Troponin's: Recent Labs Lab Test 10/28/17 1515 10/18/17 2134 06/01/11 0210 TROPI <0.015 <0.015 <0.012 Most Recent Cholesterol Panel: Recent Labs Lab Test 01/09/19 1053 CHOL 123 LDL 58 HDL 49* TRIG 82 Most Recent 6 Bacteria Isolates From Any Culture (See EPIC Reports for Culture Details): Recent Labs Lab Test 10/28/17 1523 10/28/17 1515 10/28/17 1425 10/28/15 1130 09/15/15 1103 09/09/14 1200 CULT Cultured on the 1st day of incubation: Staphylococcus epidermidis * Critical Value/Significant Value, preliminary result only, called to and read back by Nissa Carreon RN/[facility] ICU at 1806 on 10/29/17. EH. (Note) POSITIVE for STAPHYLOCOCCUS EPIDERMIDIS and POSITIVE for the mecA gene (resistant to methicillin) by Perceptive Pixel multiplex nucleic acid test. Final identification and antimicrobial susceptibility testing will be verified by standard methods. Specimen tested with Verigene multiplex, gram-positive blood culture nucleic acid test for the following targets: Staph aureus, Staph epidermidis, Staph lugdunensis, other Staph species, Enterococcus faecalis, Enterococcus faecium, Streptococcus species, S. agalactiae, S. anginosus grp., S. pneumoniae, S. pyogenes, Listeria sp., mecA (methicillin resistance) and Lyle/B (vancomycin resistance). Critical Value/Significant Value called to and read back by Shaista Traore RN 0055 10/30/17. MS No growth Light growth Staphylococcus aureus Susceptibility testing done on previous specimen * Light growth Enterococcus faecium Susceptibility testing done on previous specimen * Light growth Klebsiella oxytoca Susceptibility testing done on previous specimen * Moderate growth Actinomyces neuii Susceptibility testing not routinely done * Light growth Corynebacterium species Susceptibility testing not routinely done These bacteria are part of normal skin mikaela, but on occasion, may be true pathogens. Clinical correlation must be applied to interpreting this microbiology result. * Isolated in the broth only: Mixed aerobic and anaerobic mikaela * Isolated in the broth only: Bacteroides fragilis group * Light growth Staphylococcus aureus * Light growth Enterococcus faecium * Light growth Strain 2 Staphylococcus aureus * On day 1, isolated in broth only: Klebsiella oxytoca * Moderate growth Actinomyces neuii Susceptibility testing not routinely done * Isolated in the broth only: Bacteroides fragilis group * Isolated in the broth only: Mixed aerobic and anaerobic mikaela * Canceled, Test credited REORDERED SEPARATELY Moderate growth Staphylococcus aureus* Heavy growth Staphylococcus aureus* Heavy growth Staphylococcus aureus Moderate growth Beta hemolytic Streptococcus group B * Most Recent TSH, T4 and A1c Labs: Recent Labs Lab Test 03/15/19 1724 05/30/18 1612 TSH 0.76 -- A1C -- 5.6 documented in this encounter Medications at Time of Discharge Medication Sig Dispensed Refills Start Date End Date cetirizine (ZYRTEC) 10 Take 10 mg by mouth 0 MG tablet 2 times daily Multiple Take 1 tablet by 0 Vitamins-Minerals mouth 2 times daily (PRESERVISION/LUTEIN) CAPS acetaminophen (TYLENOL) Take 2 tablets (650 0 07/201805/04/2021 325 MG mg) by mouth every 4 tabletIndications: Pain hours as needed for mild pain ascorbic acid (VITAMIN Take 500 mg by mouth 0 04/30/2020 C) 500 MG tablet daily atenolol (TENORMIN) 25 TAKE 1 TABLET BY 180 tablet 0 019 04/23/2019 MG tabletIndications: MOUTH TWICE DAILY Essential hypertension, benign Calcium Take 1 tablet by 0 09/11/19 20 Carb-Cholecalciferol mouth daily (CALCIUM + D3) 600-200 MG-UNIT TABS Cholecalciferol (VITAMIN Take 5,000 Units by 0 10/04/2021 D PO) mouth daily desoximetasone Apply topically 2 0 (TOPICORT) 0.05 % GEL times daily as needed for inflammation or itching FEROSUL 325 (65 Fe) MG Take 1 tablet (325 100 tablet 3 06/0105/20/2019 tabletIndications: Iron mg) by mouth daily deficiency anemia, (with breakfast) unspecified iron deficiency anemia type furosemide (LASIX) 40 MG TAKE 1 TABLET(40 MG) 90 tablet 0 0 02/25/2019 04/23/2019 tabletIndications: BY MOUTH DAILY Essential hypertension, benign hydrocortisone 2.5 % Daily as needed 180 g 3 03/27/2017 05/14/2019 ointmentIndications: Dermatitis ketorolac (ACULAR) 0.5 % Apply 1 drop to eye 1 03/20/2019 ophthalmic solution 3 times daily levETIRAcetam (KEPPRA) Take 1 tablet (1,000 60 tablet 3 07/201804/24/2019 1000 MG mg) by mouth daily tabletIndications: Seizure (H) losartan (COZAAR) 50 MG TAKE 1 TABLET(50 MG) 90 tablet 0 04/23/2019 tabletIndications: BY MOUTH DAILY Essential hypertension, benign multivitamin w/minerals Take 1 tablet by 0 05/04/2021 (THERA-VIT-M) tablet mouth daily nystatin (MYCOSTATIN) Apply topically 0 8 09/11/2019 397805 UNIT/GM external daily as needed cream nystatin (NYSTOP) 349349 APPLY TOPICALLY TO 60 g 0 02/201909/11/2019 UNIT/GM external THE AFFECTED AREA powderIndications: BENEATH BILATERAL Pressure ulcer of BREAST/GROIN FOLDS ischium, left, stage IV TWICE DAILY UNTIL (H) RESOLVED. ofloxacin (OCUFLOX) 0.3 Apply 1 drop to eye 1 07/201803/20/2019 % ophthalmic solution 3 times daily order for Equipment being 1 each 0 03/08/2019 9 DMEIndications: ordered: Bariatric Lymphedema of both lower 4-wheeled walker extremities, Morbid obesity (H), Left foot drop order for Equipment being ordered: Bariatric 4-wheeled walker 1 each 0 03/08/2019 12/17/2021 DMEIndications: Seat width needs to be 20 inches or greater Lymphedema of both lower Handlebar width needs to be 22 inches or gre ater extremities, Morbid obesity (H), Left foot drop prednisoLONE acetate Apply 1 drop to eye 1 201803/20/2019 (PRED FORTE) 1 % 3 times daily ophthalmic suspension warfarin (COUMADIN) 10 Take 1 tablet (10 0 201804/23/2019 MG tabletIndications: mg) by mouth daily retirement current use of 10 mg (1 pill) 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 daily, except 5 mg (1/2 pill) on Monday and -- take at 6 PM. documented as of this encounter Progress Notes Nori Houston - 03/17/2019 4:16 PM CDT Portable EEG [id number] completed. Pt was alert oriented, cooperative, awake, eyes open and closed during recording. Started photic but pt could not handle it. No HV was also performed due to health. Amelia Malik LSW - 03/17/2019 3:12 PM CDT SW: D: MARCELLE asked to set up ride for pt's return home. She requires bariatric transport. I: MARCELLE called pt's daughter, Lyndsay to confirm pt's need for ride and ask some questions And she indicates that p'ts sister is able to transport pt in her van. This is how pt usually get around Except that she is a member of [employer] and utilizes this on occasion. Pt's sister expected to arrive around 4:00pm to transport pt home. P Discharge home today via ride from sister. Hospitalist, NADEGE,RN, [employer],BB updated DAVONTE Lay [facility] Care Transitions Qian Purvis MD - 03/17/2019 12:04 PM CDT [facility] Neurology Progress Note Date of Service (when I saw the patient): 03/17/2019 Today's developments: Clinically doing well with no speech changes. EEG showed rare left temporal sharp waves during sleep. No seizures. Okay to discharge home on Keppra 2 thousand milligrams twice a day. Follow-up with me in clinic within 2 months. Assessment & Plan Marzena Evans is a 74 year old female who was admitted on 03/15/2019. I was asked to see the patientfor altered mental status possible seizure. ?? --- Given her clinical history, it is likely that she had a seizure with postictal phase of altered mental status and expressive aphasia. She is doing better today. --Continue Keppra 1000 mg's twice daily. Creatinine is normal. --Continuous video EEG for 24 hours showed no seizures but did show left temporal sharp waves consistent with a focal seizure disorder --MRI and MRV were unremarkable. ?? --Left decubitus ulcer: As per primary team --- Enlarged thyroid noted on CT scan: As per primary team ?? I discussed the above diagnosis, assessment, testing, and results with the patient. Qian Purvis MD Interval History No new symptoms. She feels that her speech is back to baseline. No seizure events or other unusual clinical events. Physical Exam Temp: 98 ??F (36.7 ??C) Temp src: Oral BP: (!) 163/85 Pulse: 55 Heart Rate: 65 Resp: 17 SpO2: 95 % O2 Device: None (Room air) Vitals: 03/15/19 1703 Weight: (!) 161 kg (355 lb) Vital Signs with Ranges Temp: [97.8 ??F (36.6 ??C)-98.3 ??F (36.8 ??C)] 98 ??F (36.7 ??C) Pulse: [55] 55 Heart Rate: [55-70] 65 Resp: [16-18] 17 BP: (120-163)/(65-85) 163/85 SpO2: [95 %-96 %] 95 % I/O last 3 completed shifts: In: - Out: 950 [Urine:950] General Appearance: No acute distress Neuro: Mental Status Exam: Awake alert fully oriented, no aphasia Cranial Nerves: extraocular muscles intact face equal and symmetric speech is normal Motor: 5 out of 5 bilateral upper extremities and bilateral lower extremities except for left foot 0 dorsiflexion and plantar flexion which is chronic Sensory: Normal light touch bilateral upper extremities normal light touch right lower extremity severely decreased light touch left foot, chronic Coordination: [id number]-[id number]-[id number] normal bilaterally Gait: Deferred CV: RRR nl s1, s2 Resp: CTAB Extremities: No clubbing, no cyanosis, positive chronic pedal edema Medications ??? - MEDICATION INSTRUCTIONS - ??? Warfarin Therapy Reminder ??? atenolol 25 mg Oral BID ??? diclofenac 1 drop Ophthalmic TID ??? ferrous sulfate 325 mg Oral Daily with breakfast ??? gadobutrol 10 mL Intravenous Once ??? levETIRAcetam 1,000 mg Intravenous Q12H ??? losartan 50 mg Oral Daily ??? ofloxacin 1 drop Ophthalmic TID ??? sodium chloride 0.9 % 50 mL As instructed Once ??? sodium chloride (PF) 3 mL Intracatheter Q8H ??? sodium chloride (PF) 3 mL Intracatheter Q8H Data Results for orders placed or performed during the hospital encounter of 03/15/19 (from the past 24 hour(s)) MRV Brain wo Contrast Narrative MR VENOGRAM OF THE HEAD WITHOUT CONTRAST 03/16/2019 5:08 PM HISTORY: New onset seizures, history of hypercoagulation. TECHNIQUE: 2D TOF and 2D phase contrast MR venogram without contrast material. COMPARISON: None. FINDINGS: The exam is limited due to lack of intravenous contrast. The medial aspect of the left transverse sinus is diminutive with evidence of slow flow. The superior sagittal sinus, internal cerebral veins, vein of Ari, straight sinus, torcula, right transverse sinus, bilateral sigmoid sinuses, and right jugular bulb demonstrate normal flow-related enhancement. Impression IMPRESSION: Unremarkable MRV of the head without contrast. RADHA ZAIDI MD MR Brain w/o Contrast Narrative MRI BRAIN WITHOUT CONTRAST 03/16/2019 5:08 PM HISTORY: New onset seizures. TECHNIQUE: Multiplanar, multisequence MRI of the brain without gadolinium IV contrast material. Dedicated coronal oblique series were acquired. COMPARISON: MRI head 01/16/2019. FINDINGS: Mild volume loss is present. The cerebral hemispheres, brainstem, and cerebellum otherwise demonstrate normal morphology and signal. No evidence of acute ischemia, hemorrhage, mass, mass effect, or hydrocephalus. No abnormal diffusion restriction is identified. There is susceptibility related signal loss along the left parietal lobe with corresponding loss of fat saturation on T2 FLAIR imaging. The hippocampi, temporal lobes, forniceal columns, and mamillary bodies are symmetric. Multiple subcentimeter perivascular spaces are present within the basal ganglia and temporal stems. The visualized calvarium, paranasal sinuses, and extracranial soft tissues are unremarkable. There is opacification of bilateral mastoid cavities, likely inflammatory, unchanged. Impression IMPRESSION: 1. Susceptibility related signal loss along the left parietal lobe, calvarium, and scalp, presumably artifact related to paramagnetic material or device along the scalp. This finding is new compared to 01/16/2019. 2. Otherwise unremarkable MRI of the head without contrast. 2. Opacification of the bilateral mastoid cavities, likely inflammatory, unchanged. RADHA ZAIDI MD INR Result Value Ref Range INR 2.92 (H) 0.86 - 1.14 Images and Procedures: I personally reviewed the images of the following studies: CEEG: a few left temporal sharp waves and slowing, otherwise normal and no seizures Hayley Jimenez, PT - 03/16/2019 4:25 PM CDT 03/16/19 1354 Quick Adds Type of Visit Initial PT Evaluation Living Environment Lives With alone Living Arrangements house ([facility] Home Accessibility stairs within home;stairs to enter home (pt stays on main level ; has a ramp to enter home) Number of Stairs, Main Entrance 2 (has a ramp) Number of Stairs, Within Home, Primary 10 Stair Railings, Within Home, Primary railing on right side (ascending) Transportation Anticipated family or friend will provide Living Environment Comment Pt has a 2 story townhome but stays on main level; has a ramp to enter. Self-Care Usual Activity Tolerance good Current Activity Tolerance fair Regular Exercise Yes Activity/Exercise Type walking (a couple blocks around the neighborhood) Equipment Currently Used at Home commode;walker, rolling;wheelchair, manual;hospital bed Activity/Exercise/Self-Care Comment Pt reports she has some help at home but could do some things independently as well such as small meals, BR, and spend day. She was walking around neighborhood around [facility]. Functional Level Prior Ambulation 1-->assistive equipment Transferring 1-->assistive equipment Toileting 1-->assistive equipment Bathing 3-->assistive equipment and person Communication 0-->understands/communicates without difficulty Swallowing 0-->swallows foods/liquids without difficulty Cognition 0 - no cognition issues reported Fall history within last six months no Which of the above functional risks had a recent onset or change? ambulation Prior Functional Level Comment Has a daily PATTERNMAKER BENCH for 2-3 hours each day. Has a bath aid 2x/week. Pt states she normally ambulates a couple blocks every day General Information Onset of Illness/Injury or Date of Surgery - Date 03/15/19 Referring Physician Kalyn Swanson, DO Pertinent History of Current Problem (include personal factors and/or comorbidities that impact the POC) 74 year old female who was admitted on 03/15/2019 with altered mental status, started on Keppra for possible seizure: Precautions/Limitations fall precautions;seizure precautions General Observations Pt with seizure monitoring in place General Info Comments Eval & tx; bedrest with BR privledges Cognitive Status Examination Orientation orientation to person, place and time Level of Consciousness alert Follows Commands and Answers Questions 100% of the time;able to follow multistep instructions Personal Safety and Judgment intact Memory intact Pain Assessment Patient Currently in Pain No Integumentary/Edema Integumentary/Edema no deficits were identifed Posture Posture Forward head position;Protracted shoulders Range of Motion (ROM) ROM Comment WFL Strength Strength Comments NT: pt unable to attain positions required for formal testing Bed Mobility Bed Mobility Comments Pt transfers supine>sit with HOB raised ad extra time, SBA Transfer Skills Transfer Comments sit<>stand Nicole x1 FWW Gait Gait Comments 15ft x1 with FWW and CGA General Therapy Interventions Planned Therapy Interventions balance training;gait training;neuromuscular re-education;strengthening;transfer training;risk factor education;home program guidelines;progressive activity/exercise;bed mobility training Clinical Impression Criteria for Skilled Therapeutic Intervention yes, treatment indicated PT Diagnosis deconditioning Influenced by the following impairments decreased activity tolerance Functional limitations due to impairments difficulty walking Clinical Presentation Stable/Uncomplicated Clinical Presentation Rationale clinical judgement Clinical Decision Making (Complexity) Low complexity Therapy Frequency Daily Predicted Duration of Therapy Intervention (days/wks) 5 days Anticipated Discharge Disposition Home with Home Therapy;Transitional Care Facility Risk & Benefits of therapy have been explained Yes Patient, Family & other staff in agreement with plan of care Yes [facility] AM-PAC??? 6 Clicks V.2 Basic Mobility Inpatient Short Form 1. Turning from your back to your side while in a flat bed without using bedrails? 3 - A Little 2. Moving from lying on your back to sitting on the side of a flat bed without using bedrails? 3 - ALittle 3. Moving to and from a bed to a chair (including a wheelchair)? 3 - A Little 4. Standing up from a chair using your arms (e.g., wheelchair, or bedside chair)? 3 - A Little 5. To walk in hospital room? 3 - A Little 6. Climbing 3-5 steps with a railing? 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 DVT Prophylaxis: Pneumatic Compression Devices Code Status: Full Code Disposition: Expected discharge in 1 days once back to baseline. Shiv Gay MD Pager [phone] Cell Text Page (7am to 6pm) Interval History Feels better today, ?back to baseline. Physical Exam Temp: 97.7 ??F (36.5 ??C) Temp src: Oral BP: 122/65 Pulse: 51 Heart Rate: 64 Resp: 16 SpO2: 97 % O2 Device: None (Room air) Vitals: 03/15/19 1703 Weight: (!) 161 kg (355 lb) Vital Signs with Ranges Temp: [97.6 ??F (36.4 ??C)-98.5 ??F (36.9 ??C)] 97.7 ??F (36.5 ??C) Pulse: [51-87] 51 Heart Rate: [51-85] 64 Resp: [16-28] 16 BP: (105-168)/(53-104) 122/65 SpO2: [94 %-98 %] 97 % I/O last 3 completed shifts: In: 480 [P.O.:480] Out: 900 [Urine:900] # Pain Assessment: Current Pain Score 03/16/2019 Patient currently in pain? denies Pain score (0-10) - Pain location - Pain descriptors - Marzena???s pain level was assessed and she currently denies pain. Constitutional: Awake, alert, cooperative, no apparent distress Respiratory: Clear to auscultation bilaterally, no crackles or wheezing Cardiovascular: Regular rate and rhythm, normal S1 and S2, and no murmur noted GI: Normal bowel sounds, soft, non-distended, non-tender Extrem: No calf tenderness, no ankle edema Neuro: Ox3, no focal motor or sensory deficits Medications ??? - MEDICATION INSTRUCTIONS - ??? Warfarin Therapy Reminder ??? atenolol 25 mg Oral BID ??? diclofenac 1 drop Ophthalmic TID ??? ferrous sulfate 325 mg Oral Daily with breakfast ??? gadobutrol 10 mL Intravenous Once ??? levETIRAcetam 1,000 mg Intravenous Q12H ??? losartan 50 mg Oral Daily ??? ofloxacin 1 drop Ophthalmic TID ??? sodium chloride 0.9 % 50 mL As instructed Once ??? sodium chloride (PF) 3 mL Intracatheter Q8H ??? sodium chloride (PF) 3 mL Intracatheter Q8H ??? warfarin 10 mg Oral ONCE at 18:00 Data Recent Labs Lab 03/16/19 0807 03/15/19 1724 WBC 6.1 7.5 HGB 12.7 14.3 MCV 90 90 PLT 240 281 INR 2.48* 2.09* NA 143 140 POTASSIUM 3.7 4.0 CHLORIDE 110* 107 CO2 29 28 BUN 19 26 CR 0.56 0.41* ANIONGAP 4 5 TOMA 8.7 9.1 GLC 87 128* ALBUMIN -- 3.2* PROTTOTAL -- 8.2 BILITOTAL -- 0.5 ALKPHOS -- 109 ALT -- 25 AST -- 24 Imaging: Recent Results (from the past 24 hour(s)) Head CT w/o contrast Narrative CT SCAN OF THE HEAD WITHOUT CONTRAST 03/15/2019 6:30 PM HISTORY: Seizure, new, non-traumatic, >40 years. TECHNIQUE: Axial images of the head and coronal reformations without IV contrast material. Radiation dose for this scan was reduced using automated exposure control, adjustment of the mA and/or kV according to patient size, or iterative reconstruction technique. COMPARISON: Head CT 01/07/2019, head MRI 01/16/2019. FINDINGS: Mild volume loss is present. White matter hypoattenuation likely represents chronic small vessel ischemic change. No evidence of acute ischemia, hemorrhage, mass, mass effect, or hydrocephalus. The visualized calvarium, tympanic cavities, mastoid cavities, and paranasal sinuses are unremarkable. Impression IMPRESSION: No acute intracranial abnormality. RADHA ZAIDI MD CTA Head Neck with Contrast Narrative CT ANGIOGRAM OF THE HEAD AND NECK WITH CONTRAST 03/15/2019 6:31 PM HISTORY: Neurological deficit(s), subacute. Bit tongue (question seizure), word finding difficulty. TECHNIQUE: CT angiography with an injection of 70 mL [id number]-370 IV with scans through the head and neck. Images were transferred to a separate 3-D workstation where multiplanar reformations and 3-D images were created. Estimates of carotid stenoses are made relative to the distal internal carotid artery diameters except as noted. Radiation dose for this scan was reduced using automated exposure control, adjustment of the mA and/or kV according to patient size, or iterative reconstruction technique. COMPARISON: None. CT ANGIOGRAM HEAD FINDINGS: The intracranial vertebral arteries, basilar artery, and posterior cerebral arteries are patent. The internal carotid arteries, anterior cerebral arteries, and middle cerebral arteries are patent. No evidence of large vessel occlusion. No aneurysms are identified. There is origin of the left posterior cerebral artery. CT ANGIOGRAM NECK FINDINGS: The bilateral common carotid, internal carotid, external carotid, and vertebral arteries are patent. There is mild plaquing at the right carotid bifurcation without evidence of flow-limiting stenosis. No evidence of dissection. The thyroid gland is markedly enlarged and heterogeneous in enhancement with multiple punctate calcifications. There is mild narrowing of the upper thoracic trachea. No definite cervical lymphadenopathy is identified. Moderate cervical spine degenerative changes present. Impression IMPRESSION: CTA Head: Unremarkable vasculature. CTA Neck: 1. Unremarkable vasculature. 2. Marked enlargement of the thyroid gland with heterogeneous enhancement and mild tracheal narrowing. RADHA ZAIDI MD Nori Houston - 03/16/2019 3:12 PM CDT LTV EEG [id number] started at 12:35pm. Patient was awake, alert, oriented, and cooperative during hookup. Awake baseline performed with HV/Photic. Video consent from patient. Qian Purvis MD - 03/16/2019 12:59 PM CDT Brief EEG review note: I reviewed the first 15 minutes of the EEG. Occasional L temporal slowing, no seizures or epileptiform discharges. Full report to follow. Qian Purvis MD [facility] Neurology Pantages, Prudence Oconnell, OT - 03/16/2019 10:49 AM CDT 03/16/19 0822 Quick Adds Type of Visit Initial Occupational Therapy Evaluation Living Environment Lives With alone Living Arrangements house Home Accessibility no concerns Living Environment Comment Has a ramp to enter, otherwise 2 steps. [facility]ays [facility] the main [facility] Self-Care Usual Activity Tolerance fair Current Activity Tolerance poor Equipment Currently Used at Home commode;walker, rolling;wheelchair, manual;hospital bed Activity/Exercise/Self-Care Comment Was driving to [employer] prior to her eye surgery 2 months ago. Neighbor was doing grocery shopping for her. Does her own meds and finances. Has help with cleaning but did her own laundry Functional Level Ambulation 1-->assistive equipment Transferring 1-->assistive equipment Toileting 1-->assistive equipment Bathing 3-->assistive equipment and person Dressing 2-->assistive person Eating 0-->independent Communication 0-->understands/communicates without difficulty Swallowing 0-->swallows foods/liquids without difficulty Fall history within last six months no Prior Functional Level Comment Has a daily PATTERNMAKER BENCH for 2-3 hours each day. Has a bath aid 2x/week. General Information Onset of Illness/Injury or Date of Surgery - Date 03/15/19 Referring Physician Kalyn Swanson, DO Patient/Family Goals Statement Return home when able, open to TCU if needed Additional Occupational Profile Info/Pertinent History of Current Problem Marzena Evans is a 74 year old female who presents with altered mental status with possible seizure activity. Precautions/Limitations fall precautions;seizure precautions General Observations CPAP at night, RA during day per RN Cognitive Status Examination Orientation orientation to person, place and time Level of Consciousness alert Follows Commands (Cognition) WNL Memory intact Cognitive Comment Word-finding difficulty, possible some confusion-needs to be further assessed nextsession Visual Perception Visual Perception Wears glasses Visual Perception Comments recent cataracts surgery Sensory Examination Sensory Comments diminished sensation BLE Pain Assessment Patient Currently in Pain No Integumentary/Edema Integumentary/Edema Comments chronic BLE edema, not pitting or exacerbated at this time. Difficulty reporting but seems to have BLE garments for edema at home Range of Motion (ROM) ROM Comment BUE AROM intact Strength Strength Comments BUE 5/5 Hand Strength Hand Strength Comments strong, equal Muscle Tone Assessment Muscle Tone Comments LLE AFO Coordination Upper Extremity Coordination No deficits were identified Mobility Bed Mobility Comments MIN A supine<>EOB Transfer Skill: Sit to Stand Level of [place]: Sit/Stand minimum assist (75% patients effort) Physical Assist/Nonphysical Assist: Sit/Stand verbal cues Assistive Device for Transfer: Sit/Stand rolling walker Transfer Skill: Toilet Transfer Level of [place]: Toilet minimum assist (75% patients effort) Physical Assist/Nonphysical Assist: Toilet verbal cues Assistive Device rolling walker;seat riser;grab bars Tub/Shower Transfer Tub/Shower Transfer Comments sponge bathes on chair at baseline Balance Balance Comments CGA with use of WW, no LOB Upper Body Dressing Level of [place]: Dress Upper Body stand-by assist Physical Assist/Nonphysical Assist: Dress Upper Body set-up required Lower Body Dressing Level of [place]: Dress Lower Body maximum assist (25% patients effort) Physical Assist/Nonphysical Assist: Dress Lower Body verbal cues Eating/Self Feeding Level of [place]: Eating independent Physical Assist/Nonphysical Assist: Eating set-up required Instrumental Activities of Daily Living (IADL) Previous Responsibilities medication management;driving;finances;laundry Activities of Daily Living Analysis Impairments Contributing to Impaired Activities of Daily Living cognition impaired;balance impaired;sensation decreased;motor control impaired;strength decreased ADL Comments strength and ROM decreased in LEs General Therapy Interventions Planned Therapy Interventions ADL retraining;IADL retraining;balance training;bed mobility training;cognition;transfer training;progressive activity/exercise;risk factor education Clinical Impression Criteria for Skilled Therapeutic Interventions Met yes, treatment indicated OT Diagnosis impaired ADL and mobility Influenced by the following impairments ischeal wound, medical status, expressive aphasia Assessment of Occupational Performance 3-5 Performance Deficits Identified Performance Deficits ADL, IADL, mobility Clinical Decision Making (Complexity) Moderate complexity Therapy Frequency Daily Predicted Duration of Therapy Intervention (days/wks) 1 week Anticipated Equipment Needs at Discharge shower chair;dressing equipment;raised toilet seat Anticipated Discharge Disposition Transitional Care Facility Risks and Benefits of Treatment have been explained. Yes Patient, Family & other staff in agreement with plan of care Yes Clinical Impression Comments Eliot continue to assess appropriate DC plan daily, see POC notes for daily updates Total Evaluation Time Total Evaluation Time (Minutes) 10 Monse Alaniz [employer] - 03/16/2019 9:39 AM CDT BEDSIDE SWALLOW EVAL 03/16/19 0912 General Information Onset Date 03/15/19 Start of Care Date 03/16/[address] Sky PATEL Patient Profile Review/OT: Additional Occupational Profile Info See Profile for full history and prior level of function Patient/Family Goals Statement (Pt reports no difficulty with mastication/swallow function) Swallowing Evaluation Bedside swallow evaluation Behaviorial Observations WFL (within functional limits);Confused Mode of current nutrition Oral diet Type of oral diet Regular;Thin liquid Respiratory Status Room air Comments Per MD: Marzena Evans is a 74 year old female who presents with altered mental status with possible seizure activity. Clinical Swallow Evaluation Oral Musculature generally intact Structural Abnormalities none present Dentition present and adequate Mucosal Quality adequate Mandibular Strength and Mobility intact Oral Labial Strength and Mobility impaired seal;impaired coordination Lingual Strength and Mobility impaired anterior elevation;impaired coordination Velar Elevation intact Buccal Strength and Mobility intact Laryngeal Function Cough;Throat clear;Swallow;Voicing initiated;Dry swallow palpated Additional Documentation Yes Clinical Swallow Eval: Thin Liquid Texture Trial Mode of Presentation, Thin Liquids cup;straw;self-fed Volume of Liquid or Food Presented ~7 oz Oral Phase of Swallow WFL;Premature pharyngeal entry (premature entry noted with consecutive sips by cup ) Pharyngeal Phase of Swallow impaired;coughing/choking (x1 instance ) Diagnostic Statement Pt demonstrated x1 cough response to consecutive sips of thin by cup. No additional overt s/sx of aspiration noted remainder of eval Clinical Swallow Eval: Puree Solid Texture Trial Mode of Presentation, Puree spoon;self-fed Volume of Puree Presented ~3 oz Oral Phase, Puree WFL;Poor AP movement Pharyngeal Phase, Puree intact Diagnostic Statement no overt s/sx of aspiration, changes in respiration nor vocal quality Clinical Swallow Eval: Solid Food Texture Trial Mode of Presentation, Solid self-fed Volume of Solid Food Presented 1 charlotte cracker Oral Phase, Solid Poor AP movement Pharyngeal Phase, Solid intact Diagnostic Statement no overt s/sx of aspiration, changes in respiration nor vocal quality VFSS Evaluation VFSS Additional Documentation No FEES Evaluation Additional Documentation No Esophageal Phase of Swallow Patient reports or presents with symptoms of esophageal dysphagia No General Therapy Interventions Planned Therapy Interventions Dysphagia Treatment Dysphagia treatment Modified diet education;Instruction of safe swallow strategies Intervention Comments mild oropharyngeal dysphagia Swallow Eval: Clinical Impressions Skilled Criteria for Therapy Intervention Skilled criteria met. Treatment indicated. Functional Assessment Scale (FAS) 6 Treatment Diagnosis (mild oropharyngeal dysphagia ) Diet texture recommendations Regular diet;Thin liquids Recommended Feeding/Eating Techniques alternate between small bites and sips of food/liquid;maintainupright posture during/after eating for 30 mins;no straws;small sips/bites Demonstrates Need for Referral to Another Service occupational therapy;physical therapy Therapy Frequency 5x/week Predicted Duration of Therapy Intervention (days/wks) 1 week Risks and Benefits of Treatment have been explained. Yes Patient, family and/or staff in agreement with Plan of Care Yes Clinical Impression Comments Bedside swallow eval completed this AM. Pt reports no past history of dysphagia/diet modifications. Pt presents with mild oropharyngeal dysphagia characterized by reduced lingual ROM/coordination involving A/P movement, suspected premature entry x1, delayed swallow initiati on. Immediate cough response noted following impulsive consecutive sips of thin by cup. Given verbalcues to consume single sip at a time, no additional overt s/sx of aspiration observed. Pt tolerated trials of pureed and regular solids. Recommend continuation of regular solids with thin liquids- NO STRAWS due to impulsivity with sips. Pt must be sitting upright, small bites/sips, alternate liquids/solids, liquid wash to ensure oral clearance, slow rate of intake. Pt verbalized understanding and agreement with diet recommendations. Total Evaluation Time Total Evaluation Time (Minutes) 30 Niharika Zafar - 03/15/2019 8:08 PM CDT RECEIVING UNIT ED HANDOFF REVIEW ED Nurse Handoff Report was reviewed by: Niharika Zafar on March 15, 2019 at 8:08 PM documented in this encounter H&P Notes Kalyn Swanson, - 03/15/2019 7:42 PM CDT [facility] History and Physical Hospitalist Date of Admission: 03/15/2019 Assessment & Plan Marzena Evans is a 74 year old female who presents with altered mental status with possible seizureactivity. Altered Mental Status Possible seizure activity Hx family members with seizures late in life--her brother might be on antiseizure medications but they are unsure. Had recent admit in December 2018 for altered mental status that quickly resolved, perhapsthis event is related. Last known baseline was yesterday evening when her daughter spoke to her on the phone. She is confused with garbled speech. CT brain was negative for acute infarct. She was observed to have an episode where she was moaning, then unresponsive for about 30 min in the ED. ?Seizure trigger for patient. - Admit inpatient, neuro floor - Dr Holcomb alerted about patient - EEG in AM - Keppra 2000mg tonight, then 1000mg Q12 starting tomorrow AM - Seizure precautions - Dysphagia screen, otherwise regular diet if she is able to - PT/OT/Speech consults - Care transitions for discharge planning - If remains confused and negative EEG or seizure activity, consideration for MRI/echocardiogram forfurther stroke workup. ?? Ischial wound Has large decubitus on left ischium. Has nursing that changes dressing daily. Does not appear acutely infected. WBC 7.5. - Continue daily dressing changes - Wound care consulted - [place] for urinary incontinence. History of multiple prior DVTs and one episode of PE On prophylactic warfarin, INR 2.09 on admit - Pharmacy to dose warfarin ?? Sleep apnea - Continue ARABIC LINGUIST CPAP while inpatient ?? Hypertension ARABIC LINGUIST atenolol BID, losartan 50mg daily - Continue atenolol and losartan, monitor BPs ?? Enlarged thyroid - Seen on CTA-- with some narrowing of trachea - Check TSH/T4 Chronic Lymphedema ARABIC LINGUIST on lasix, did not eat or drink much at all today. Hold lasix for now until intake improved DVT Prophylaxis: warfarin and PCDs Code Status: Full Code Expected discharge: 2 - 3 days, pending further course and therapy eval. Await neurology workup Kalyn Swanson, Primary Care Physician Lucero Stevenson Chief Complaint Altered mental status History is obtained from the patient. Patient's daughter and sister at bedside History of Present Illness Marzena Evans is a 74 year old female who presents with altered mental status. She spoke to her daughter last night on the phone and her speech was normal at that time. She was noted to be confused with speech difficulties and possible left facial droop at home this afternoon around 3pm. She also haddried blood streaking down her face and she had bitten her tongue. In the ED she was not a code stroke, but did undergo CT imaging to rule out stroke. She had an episode where she was unresponsive for about 30 minutes that was proceeded by some groaning. She was not evaluated by physician during this episode. Neurology was called by ED and recommendation made for 2000mg keppra to be given now and seiz ure workup to occur tomorrow. During my exam she is able to participate, but when she speaking she begins to make sense, then quickly veers off into saying random words that aren't related to the topicat hand or are portions of words (pillows instead of pills). She has had hx transient confusion in the past, seems to live alone with nursing/therapies that visit her at home. Family denies recent infection, fevers, chills. They do know she has not eaten today. Past Medical History I have reviewed this patient's medical history and updated it with pertinent information if needed. Past Medical History: Diagnosis Date ??? BENIGN [...] ??? Wound, open coccyx L Past Surgical History I have reviewed this patient's surgical history and updated it with pertinent information if needed. Past Surgical History: Procedure Laterality Date ??? [...] Location: [facility] ? ? TONSILLECTOMY & ADENOIDECTOMY Prior to Admission Medications Prior to Admission Medications Prescriptions Last Dose Informant Patient Reported? Taking? Calcium Carb-Cholecalciferol (CALCIUM + D3) 600-200 MG-UNIT TABS 03/15/2019 at Unknown time Yes Yes Sig: Take 1 tablet by mouth daily Cholecalciferol (VITAMIN D PO) 03/15/2019 at Unknown time Yes Yes Sig: Take 2,000 Units by mouth daily FEROSUL 325 (65 Fe) MG tablet 03/15/2019 at Unknown time No Yes Sig: Take 1 tablet (325 mg) by mouth daily (with breakfast) Multiple Vitamins-Minerals (PRESERVISION/LUTEIN) CAPS 03/15/2019 at Unknown time Yes Yes Sig: Take 1 tablet by mouth 2 times daily WARFARIN SODIUM PO 03/14/2019 at Unknown time Yes Yes Sig: Take 13 mg by mouth On Mon, WARFARIN SODIUM PO 03/13/2019 Yes Yes Sig: Take 10 mg by mouth Tue, Mon, Mon, Sat, Sun acetaminophen (TYLENOL) 325 MG tablet prn med Yes Yes Sig: Take 325 mg by mouth daily as needed ascorbic acid (VITAMIN C) 500 MG tablet 03/15/2019 at Unknown time Yes Yes Sig: Take 500 mg by mouth daily atenolol (TENORMIN) 25 MG tablet 03/15/2019 at x1 No Yes Sig: TAKE 1 TABLET BY MOUTH TWICE DAILY cetirizine (ZYRTEC) 10 MG tablet 03/15/2019 at x1 Yes Yes Sig: Take 10 mg by mouth 2 times daily desoximetasone (TOPICORT) 0.05 % GEL prn med Yes Yes Sig: Apply topically 2 times daily as needed for inflammation or itching furosemide (LASIX) 20 MG tablet Yes No Sig: Take 10 mg by mouth 2 times daily furosemide (LASIX) 40 MG tablet No No Sig: TAKE 1 TABLET(40 MG) BY MOUTH DAILY hydrocortisone 2.5 % ointment prn med No Yes Sig: Daily as needed ketorolac (ACULAR) 0.5 % ophthalmic solution 03/14/2019 at Unknown time Yes Yes Sig: Apply 1 drop to eye 3 times daily losartan (COZAAR) 50 MG tablet 03/15/2019 at Unknown time No Yes Sig: TAKE 1 TABLET(50 MG) BY MOUTH DAILY multivitamin w/minerals (THERA-VIT-M) tablet 03/15/2019 at Unknown time Yes Yes Sig: Take 1 tablet by mouth daily nystatin (MYCOSTATIN) [id number] UNIT/GM external cream prn med Yes Yes Sig: Apply topically daily as needed nystatin (NYSTOP) 190133 UNIT/GM external powder prn med No Yes Sig: APPLY TOPICALLY TO THE AFFECTED AREA BENEATH BILATERAL BREAST/GROIN FOLDS TWICE DAILY UNTIL RESOLVED. ofloxacin (OCUFLOX) 0.3 % ophthalmic solution 03/14/2019 at Unknown time Yes Yes Sig: Apply 1 drop to eye 3 times daily order for DME No No Sig: Equipment being ordered: Person[employer] 4-wheeled walker order for DME No No Sig: Equipment being ordered: MILI-wheeled walker Seat width needs to be 20 inches or greater Handlebar width needs to be 22 inches or greater prednisoLONE acetate (PRED FORTE) 1 % ophthalmic suspension More than a month at Unknown time Yes No Sig: Apply 1 drop to eye 3 times daily warfarin (COUMADIN) 10 MG tablet No No Sig: Take 1 tablet (10 mg) by mouth daily or as directed by INR Clinic Facility-Administered Medications: None Allergies Allergies Allergen Reactions ??? Cephalexin Hives Keflex - hives ??? Lanolin Other (See Comments) skin irritation ??? Lisinopril Cough ??? Neomycin Other (See Comments) skin irritation ??? Penicillins Hives ??? Bactroban [Mupirocin Calcium] Rash ??? Mupirocin Rash and Unknown Social History I have reviewed this patient's social history and updated it with pertinent information if needed. Marzena Evans reports that she has never smoked. She has never used smokeless tobacco. She reports that she does not drink alcohol or use drugs. Family History I have reviewed this patient's family history [...] ??? Macular Degeneration No family hx of Review of Systems The 10 point Review of Systems was attempted, but patient's speech is confused Physical Exam Temp: 98 ??F (36.7 ??C) Temp src: Oral BP: (!) 148/82 Pulse: 77 Heart Rate: 77 Resp: 19 SpO2: 96 % O2 Device: None (Room air) Vital Signs with Ranges Temp: [98 ??F (36.7 ??C)-98.5 ??F (36.9 ??C)] 98 ??F (36.7 ??C) Pulse: [73-85] 77 Heart Rate: [77-85] 77 Resp: [18-28] 19 BP: (133-168)/(64-104) 148/82 SpO2: [94 %-98 %] 96 % 355 lbs 0 oz Constitutional: Awake, alert, cooperative, no apparent distress, speech is slightly gibberish Eyes: Conjunctiva and pupils examined and normal. HEENT: Moist mucous membranes, normal dentition. Respiratory: Clear to auscultation bilaterally, no crackles or wheezing. Cardiovascular: Regular rate and rhythm, normal S1 and S2, and no murmur noted. GI: Soft, non-distended, non-tender, normal bowel sounds, obese Lymph/Hematologic: No anterior cervical or supraclavicular adenopathy. Skin: Bilateral lower extremity lymphedema. Deep left ischial decubitus ulcer with some surrounding redness, could be from wet dressing in place. Musculoskeletal: No joint swelling, erythema or tenderness Neurologic: Moves all extremities. Strength 5/5 all extremities. Able to follow commands. Randomly saying words that are half right. She states she took her pillows at 13 (pillows instead of pills). Psychiatric: Thinks year is 2013, month is December. Knows we are in a hospital and herself. no obvious anxiety or depression. Data Data reviewed today: I personally reviewed CTA shows no vasculature abnormalities, but does show enlargement of thyroid with mild tracheal narrowing. CT head with no infarct Recent Labs Lab 03/15/19 1724 WBC 7.5 HGB 14.3 MCV 90 PLT 281 INR 2.09* NA 140 POTASSIUM 4.0 CHLORIDE 107 CO2 28 BUN 26 CR 0.41* ANIONGAP 5 TOMA 9.1 GLC 128* ALBUMIN 3.2* PROTTOTAL 8.2 BILITOTAL 0.5 ALKPHOS 109 ALT 25 AST 24 Recent Results (from the past 24 hour(s)) Head CT w/o contrast Narrative CT SCAN OF THE HEAD WITHOUT CONTRAST 03/15/2019 6:30 PM HISTORY: Seizure, new, non-traumatic, >40 years. TECHNIQUE: Axial images of the head and coronal reformations without IV contrast material. Radiation dose for this scan was reduced using automated exposure control, adjustment of the mA and/or kV according to patient size, or iterative reconstruction technique. COMPARISON: Head CT 01/07/2019, head MRI 01/16/2019. FINDINGS: Mild volume loss is present. White matter hypoattenuation likely represents chronic small vessel ischemic change. No evidence of acute ischemia, hemorrhage, mass, mass effect, or hydrocephalus. The visualized calvarium, tympanic cavities, mastoid cavities, and paranasal sinuses are unremarkable. Impression IMPRESSION: No acute intracranial abnormality. RADHA ZAIDI MD CTA Head Neck with Contrast Narrative CT ANGIOGRAM OF THE HEAD AND NECK WITH CONTRAST 03/15/2019 6:31 PM HISTORY: Neurological deficit(s), subacute. Bit tongue (question seizure), word finding difficulty. TECHNIQUE: CT angiography with an injection of 70 mL [id number]-370 IV with scans through the head and neck. Images were transferred to a separate 3-D workstation where multiplanar reformations and 3-D images were created. Estimates of carotid stenoses are made relative to the distal internal carotid artery diameters except as noted. Radiation dose for this scan was reduced using automated exposure control, adjustment of the mA and/or kV according to patient size, or iterative reconstruction technique. COMPARISON: None. CT ANGIOGRAM HEAD FINDINGS: The intracranial vertebral arteries, basilar artery, and posterior cerebral arteries are patent. The internal carotid arteries, anterior cerebral arteries, and middle cerebral arteries are patent. No evidence of large vessel occlusion. No aneurysms are identified. There is origin of the left posterior cerebral artery. CT ANGIOGRAM NECK FINDINGS: The bilateral common carotid, internal carotid, external carotid, and vertebral arteries are patent. There is mild plaquing at the right carotid bifurcation without evidence of flow-limiting stenosis. No evidence of dissection. The thyroid gland is markedly enlarged and heterogeneous in enhancement with multiple punctate calcifications. There is mild narrowing of the upper thoracic trachea. No definite cervical lymphadenopathy is identified. Moderate cervical spine degenerative changes present. Impression IMPRESSION: CTA Head: Unremarkable vasculature. CTA Neck: 1. Unremarkable vasculature. 2. Marked enlargement of the thyroid gland with heterogeneous enhancement and mild tracheal narrowing. RADHA ZAIDI MD documented in this encounter Procedure Notes Qian Purvis MD - 03/17/2019 5:20 PM CDTAssociated Order(s): EEG Procedure Date: 03/16/2019 LONG-TERM ELECTROENCEPHALOGRAM WITH VIDEO ORDERING PROVIDER: Qian Purvis MD [facility] EEG #: [id number], [facility] day 1. DATE OF EEG: From 03/16/2019-03/17/2019. This is a continuous video EEG performed in the standard international 10-20 electrode system. The awake activity shows mainly alpha frequency activity and is symmetric. There is posterior dominant rhythm of 9 Hz bilaterally with quiet wakefulness and eye closure. There is intermittent left temporal slowing in the theta and rarely in the delta range. Hyperventilation and photic stimulation were performed with no additional abnormalities. Drowsiness was recorded with a dropout of the posterior dominant rhythm and increased theta frequency activity. Sleep was recorded with normal POSTs, vertex waves,and K complexes. During sleep, there was occasional left temporal sharp waves with phase reversal around F7 and T3. No seizures occurred during the recording. IMPRESSION: This is an abnormal continuous video EEG due to: 1. Occasional left temporal epileptiform sharp waves during sleep. 2. Occasional left temporal slowing during sleep and wakefulness. 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 Clinicalcorrelation is recommended. No seizures occurred during the recording. QIAN PURVIS MD MT: DAYDAY Name: MARZENA EVANS Account: [id number] : 1945 Procedure Date: 03/16/2019 Document: [id number] documented in this encounter Consult Notes Laverne Mays, VIRA, LD - 03/17/2019 12:21 PM CDT CLINICAL NUTRITION SERVICES - ASSESSMENT NOTE Malnutrition: does not meet criteria REASON FOR ASSESSMENT Marzena Evans is a 74 year old female seen by Registered Dietitian for Admission Nutrition Risk Screen for stageable pressure injuries or large/non- healing wound or burn NUTRITION HISTORY - Information obtained from patient, EMR - H/o hypertension, PE, lymphedema, presented with AMS. - On presentation pt was confused, having speech difficulties, slight left facial droop. ?seizure activity. - suspected left ischial wound on presentation. - Had not eaten/drank much the day of admission. - NKFA - Has been focusing on protein. Was told to eat at least 100g daily. Thinks she has been meeting this goal. CURRENT NUTRITION ORDERS Diet Order: Regular Room service w/ assist Current Intake/Tolerance: 100% intake recorded for 1 meal yesterday, pt reported eating a good breakfast this AM - omelet withpineapple. NUTRITION FOCUSED PHYSICAL ASSESSMENT FOR DIAGNOSING MALNUTRITION) Completed: Yes Visual assessment only Observed: No nutrition-related physical findings observed - Potential for masking given adiposity. Obtained from Chart/Interdisciplinary Team: Edema 2-3+ Randall - Nutrition: 3: total 17 Last BM this morning 03/17 ANTHROPOMETRICS Height: 5' 7 Weight: 355 lbs 0 oz (161 kg) Body mass index is 55.6 kg/m??. Weight Status: Obesity Grade III BMI >40 IBW: 61.4 kg % IBW: 262% Weight History: currently up, likely fluid related. Wt Readings from Last 10 Encounters: 03/15/19 (!) 161 kg (355 lb) 02/20/19 (!) 158.8 kg (350 lb) 02/06/19 (!) 159 kg (350 lb 9.6 oz) 01/16/19 (!) 152 kg (335 lb) 01/09/19 (!) 154.3 kg (340 lb 1.6 oz) 01/07/19 (!) 156 kg (344 lb) 08/01/18 (!) 154.5 kg (340 lb 11.2 oz) 05/30/18 (!) 165.1 kg (364 lb) 05/16/18 (!) 165.3 kg (364 lb 6.7 oz) 05/07/18 (!) 165.3 kg (364 lb 6.4 oz) LABS Labs reviewed Recent Labs Lab Test 03/16/19 0807 03/15/19 1724 02/13/19 1412 01/09/19 1053 01/07/19 1508 POTASSIUM 3.7 4.0 4.6 4.0 4.0 Recent Labs Lab Test 10/28/17 1515 10/24/17 0758 10/22/17 0539 10/21/17 0545 10/20/17 0637 PHOS 2.5 2.9 3.1 2.9 2.7 Recent Labs Lab Test 10/28/17 1515 10/24/17 0758 10/22/17 0539 10/21/17 0545 10/20/17 0637 MAG 1.8 1.8 1.9 2.0 2.0 Recent Labs Lab Test 03/16/19 0807 03/15/19 1724 02/13/19 1412 01/09/19 1053 01/07/19 1508 NA 143 140 140 142 137 Recent Labs Lab Test 03/16/19 0807 03/15/19 1724 02/13/19 1412 01/09/19 1053 01/07/19 1508 CR 0.56 0.41* 0.49* 0.55 0.47* Recent Labs Lab 03/16/19 0807 03/15/19 1724 GLC 87 128* Lab Results Component Value Date A1C 5.6 05/30/2018 A1C 5.2 01/03/2017 A1C 5.4 01/01/2016 A1C 5.4 12/30/2014 A1C 5.7 12/23/2013 Triglycerides Date Value Ref Range Status 01/09/2019 82 <150 mg/dL Final 01/01/2016 159 (H) <150 mg/dL Final Comment: Borderline high: 150-199 mg/dl High: 200-499 mg/dl Very high: >499 mg/dl Fasting specimen 05/31/2011 140 0 - 150 mg/dL Final MEDICATIONS Medications reviewed ASSESSED NUTRITION NEEDS PER APPROVED PRACTICE GUIDELINES: Dosing Weight 86.3 kg Estimated Energy Needs: 1202-1227 kcals (25-30 Kcal/Kg) Justification: wound Estimated Protein Needs: 129-173+ grams protein (1.5-2 g pro/Kg) Justification: wound healing and obesity guidelines Estimated Fluid Needs: >1 mL/kcal Justification: maintenance MALNUTRITION: % Weight Loss: None noted % Intake: No decreased intake noted Subcutaneous Fat Loss: None observed Muscle Loss: None observed --> potential for masking Fluid Retention: Moderate 2-3+ Malnutrition Diagnosis: Patient does not meet two of the above criteria necessary for diagnosing malnutrition NUTRITION DIAGNOSIS: Increased nutrient needs (protein, micronutrients) related to wound healing for suspected PI as evidenced by pressure injury protocol NUTRITION INTERVENTIONS Recommendations / Nutrition Prescription Diet per MD - continue room service w/ assist Add thera vit M daily + additional micronutrients pending WOCN eval. Implementation Nutrition education: Provided education on protein, sources, encouraged intake. Multivitamin/Mineral: above Nutrition Goals Intake of at least 75% meals TID, each with a good-quality source of protein. MONITORING AND EVALUATION: Progress towards goals will be monitored and evaluated per protocol and Practice Guidelines Laverne Mays RD, [facility]EL[facility], [address], [address], [place] Pager: [phone] Weekend Pager: [phone] Qian Purvis MD - 03/16/2019 11:20 AM CDTAssociated Order(s): NEUROLOGY IP CONSULT [facility] Neurology Consultation Date of Admission: 03/15/2019 Assessment & Plan Marzena Evans is a 74 year old female who was admitted on 03/15/2019. I was asked to see the patientfor altered mental status possible seizure. --- Given her clinical history, it is likely that she had a seizure with postictal phase of altered mental status and expressive aphasia. She is doing better today. --Continue Keppra 1000 mg's twice daily. Creatinine is normal. --Continuous video EEG for 24 to 48 hours. --I will get an MRI and MRV given the mild facial weakness on the right and history of hypercoagulation. --Left decubitus ulcer: As per primary team --- Enlarged thyroid noted on CT scan: As per primary team I discussed the above diagnosis, assessment, and further testing with the patient, who expressed understanding. Qian Purvis MD Code Status Full Code Reason for Consult Reason for consult: I was asked by Dr. Swanson to evaluate this patient for altered mental status. Chief Complaint Confusion altered mental status, History is obtained from the patient and the electronic medical chart. History of Present Illness Marzena Evans is a 74 year old female who presents with altered mental status, possible seizures. She has morbid obesity, long-standing left ischial region cubitus ulcer, left lower leg weakness dueto sciatic involvement of the ulcer, but no known history of seizures. On , she was found to be confused by caregivers. She was using words that were not making sense. Apparently she had a episode of loss of consciousness for about 30 minutes which I believe was in the ER. She was found to have bitten her tongue at one point. Keppra 2000 mg IV was loaded in the emergency room. She has been started on 1000mg IV twice daily. Creatinine is normal. She denies any specific complaints today. Today she still feels somewhat confused but is feeling better. She has some loss of time of yesterday. She tells me that baseline she walks with a walker. She has an AFO for the left foot due to the significant weakness from the Sciatic injury of her decubitus ulcer. Past Medical History I have reviewed this patient's medical history and updated it with pertinent information if needed. Past Medical History: Diagnosis Date ??? BENIGN [...] ??? Wound, open coccyx L Past Surgical History I have reviewed this patient's surgical history and updated it with pertinent information if needed. Past Surgical History: Procedure Laterality Date ??? [...] Location: [facility] ? ? TONSILLECTOMY & ADENOIDECTOMY Prior to Admission Medications Prior to Admission Medications Prescriptions Last Dose Informant Patient Reported? Taking? Calcium Carb-Cholecalciferol (CALCIUM + D3) 600-200 MG-UNIT TABS 03/15/2019 at Unknown time Yes Yes Sig: Take 1 tablet by mouth daily Cholecalciferol (VITAMIN D PO) 03/15/2019 at Unknown time Yes Yes Sig: Take 2,000 Units by mouth daily FEROSUL 325 (65 Fe) MG tablet 03/15/2019 at Unknown time No Yes Sig: Take 1 tablet (325 mg) by mouth daily (with breakfast) Multiple Vitamins-Minerals (PRESERVISION/LUTEIN) CAPS 03/15/2019 at Unknown time Yes Yes Sig: Take 1 tablet by mouth 2 times daily WARFARIN SODIUM PO 03/14/2019 at Unknown time Yes Yes Sig: Take 13 mg by mouth On Mon, WARFARIN SODIUM PO 03/13/2019 Yes Yes Sig: Take 10 mg by mouth Tue, Wed, Fri, Sat, Sun acetaminophen (TYLENOL) 325 MG tablet prn med Yes Yes Sig: Take 325 mg by mouth daily as needed ascorbic acid (VITAMIN C) 500 MG tablet 03/15/2019 at Unknown time Yes Yes Sig: Take 500 mg by mouth daily atenolol (TENORMIN) 25 MG tablet 03/15/2019 at x1 No Yes Sig: TAKE 1 TABLET BY MOUTH TWICE DAILY cetirizine (ZYRTEC) 10 MG tablet 03/15/2019 at x1 Yes Yes Sig: Take 10 mg by mouth 2 times daily desoximetasone (TOPICORT) 0.05 % GEL prn med Yes Yes Sig: Apply topically 2 times daily as needed for inflammation or itching furosemide (LASIX) 40 MG tablet 03/15/2019 at Unknown time No Yes Sig: TAKE 1 TABLET(40 MG) BY MOUTH DAILY hydrocortisone 2.5 % ointment prn med No Yes Sig: Daily as needed ketorolac (ACULAR) 0.5 % ophthalmic solution 03/14/2019 at Unknown time Yes Yes Sig: Apply 1 drop to eye 3 times daily losartan (COZAAR) 50 MG tablet 03/15/2019 at Unknown time No Yes Sig: TAKE 1 TABLET(50 MG) BY MOUTH DAILY multivitamin w/minerals (THERA-VIT-M) tablet 03/15/2019 at Unknown time Yes Yes Sig: Take 1 tablet by mouth daily nystatin (MYCOSTATIN) [id number] UNIT/GM external cream prn med Yes Yes Sig: Apply topically daily as needed nystatin (NYSTOP) [id number] UNIT/GM external powder prn med No Yes Sig: APPLY TOPICALLY TO THE AFFECTED AREA BENEATH BILATERAL BREAST/GROIN FOLDS TWICE DAILY UNTIL RESOLVED. ofloxacin (OCUFLOX) 0.3 % ophthalmic solution 03/14/2019 at Unknown time Yes Yes Sig: Apply 1 drop to eye 3 times daily order for DME No No Sig: Equipment being ordered: [employer] 4-wheeled walker order for DME No No Sig: Equipment being ordered: MILI-wheeled walker Seat width needs to be 20 inches or greater Handlebar width needs to be 22 inches or greater prednisoLONE acetate (PRED FORTE) 1 % ophthalmic suspension More than a month at Unknown time Yes No Sig: Apply 1 drop to eye 3 times daily warfarin (COUMADIN) 10 MG tablet No No Sig: Take 1 tablet (10 mg) by mouth daily or as directed by INR Clinic Facility-Administered Medications: None Allergies Allergies Allergen Reactions ??? Cephalexin Hives Keflex - hives ??? Lanolin Other (See Comments) skin irritation ??? Lisinopril Cough ??? Neomycin Other (See Comments) skin irritation ??? Penicillins Hives ??? Bactroban [Mupirocin Calcium] Rash ??? Mupirocin Rash and Unknown Social History I have reviewed this patient's social history and updated it with pertinent information if needed. Marzena Evans reports that she has never smoked. She has never used smokeless tobacco. She reports that she does not drink alcohol or use drugs. Family History I have reviewed this patient's family history [...] ??? Macular Degeneration No family hx of She does have a family history of seizures. It appears that it is more in some of her family memberslater in their life. Review of Systems The 10 point Review of Systems is negative other than noted in the HPI. Physical Exam Temp: 97.7 ??F (36.5 ??C) Temp src: Oral BP: 122/65 Pulse: 51 Heart Rate: 64 Resp: 16 SpO2: 97 % O2 Device: None (Room air) Vital Signs with Ranges Temp: [97.6 ??F (36.4 ??C)-98.5 ??F (36.9 ??C)] 97.7 ??F (36.5 ??C) Pulse: [51-87] 51 Heart Rate: [51-85] 64 Resp: [16-28] 16 BP: (105-168)/(53-104) 122/65 SpO2: [94 %-98 %] 97 % 355 lbs 0 oz General Appearance: No acute distress Neuro: Mental Status Exam: Awake alert, no acute distress, has the date wrong thing is the instead of, but does know that it is February 2019. She knows she is at [facility] and that is in [facility]. Cranial Nerves: Cranial nerves II through XII examined and intact except for mild right decreased smile strength. Motor: 5 out of 5 bilateral upper extremities 5 out of 5 right lower extremity left lower externally has 0 out of 5 dorsiflexion and plantar flexion which is chronic. 5 out of 5 hip flexion. Reflexes: 1+ bilateral upper extremity 0 bilateral knees 0 bilateral Achilles downgoing toes no clonus Sensory: Normal light touch bilateral upper extremities absent light touch left foot which is chronic normal light touch right foot Coordination: [id number] normal bilaterally Gait: Deferred patient undergoing EEG hookup at the time. Neck: no nuchal rigidity. No carotid bruits. Extremities: No clubbing, no cyanosis, no edema CV: RRR nl s1, s2 Resp: CTAB Data Results for orders placed or performed during the hospital encounter of 03/15/19 (from the past 24 hour(s)) CBC with platelets differential Result Value Ref Range WBC 7.5 4.0 - 11.0 10e9/L RBC Count 4.67 3.8 - 5.2 10e12/L Hemoglobin 14.3 11.7 - 15.7 g/dL Hematocrit 42.0 35.0 - 47.0 % MCV 90 78 - 100 fl MCH 30.6 26.5 - 33.0 pg MCHC 34.0 31.5 - 36.5 g/dL RDW 14.2 10.0 - 15.0 % Platelet Count 281 150 - 450 10e9/L Diff Method Automated Method % Neutrophils 86.3 % % Lymphocytes 8.5 % % Monocytes 4.5 % % Eosinophils 0.1 % % Basophils 0.3 % % Immature Granulocytes 0.3 % Nucleated RBCs 0 0 /100 Absolute Neutrophil 6.3 1.6 - 8.3 10e9/L Absolute Lymphocytes 0.6 (L) 0.8 - 5.3 10e9/L Absolute Monocytes 0.3 0.0 - 1.3 10e9/L Absolute Eosinophils 0.0 0.0 - 0.7 10e9/L Absolute Basophils 0.0 0.0 - 0.2 10e9/L Abs Immature Granulocytes 0.0 0 - 0.4 10e9/L Absolute Nucleated RBC 0.0 INR Result Value Ref Range INR 2.09 (H) 0.86 - 1.14 Comprehensive metabolic panel Result Value Ref Range Sodium 140 133 - 144 mmol/L Potassium 4.0 3.4 - 5.3 mmol/L Chloride 107 94 - 109 mmol/L Carbon Dioxide 28 20 - 32 mmol/L Anion Gap 5 3 - 14 mmol/L Glucose 128 (H) 70 - 99 mg/dL Urea Nitrogen 26 7 - 30 mg/dL Creatinine 0.41 (L) 0.52 - 1.04 mg/dL GFR Estimate >90 >60 mL/min/[1.73_m2] GFR Estimate If Black >90 >60 mL/min/[1.73_m2] Calcium 9.1 8.5 - 10.1 mg/dL Bilirubin Total 0.5 0.2 - 1.3 mg/dL Albumin 3.2 (L) 3.4 - 5.0 g/dL Protein Total 8.2 6.8 - 8.8 g/dL Alkaline Phosphatase 109 40 - 150 U/L ALT 25 0 - 50 U/L AST 24 0 - 45 U/L UA with Microscopic Result Value Ref Range Color Urine Yellow Appearance Urine Cloudy Glucose Urine Negative NEG^Negative mg/dL Bilirubin Urine Negative NEG^Negative Ketones Urine Negative NEG^Negative mg/dL Specific [place] Urine 1.030 1.003 - 1.035 Blood Urine Negative NEG^Negative pH Urine 5.5 5.0 - 7.0 pH Protein Albumin Urine 30 (A) NEG^Negative mg/dL Urobilinogen mg/dL Normal 0.0 - 2.0 mg/dL Nitrite Urine Negative NEG^Negative Leukocyte Esterase Urine Negative NEG^Negative Source Midstream Urine WBC Urine 0 0 - 5 /HPF RBC Urine 0 0 - 2 /HPF Squamous Epithelial /HPF Urine 2 (H) 0 - 1 /HPF Mucous Urine Present (A) NEG^Negative /LPF TSH with free T4 reflex Result Value Ref Range TSH 0.76 0.40 - 4.00 mU/L Creatinine POCT Result Value Ref Range Creatinine 0.5 (L) 0.52 - 1.04 mg/dL GFR Estimate >90 >60 mL/min/[1.73_m2] GFR Estimate If Black >90 >60 mL/min/[1.73_m2] EKG 12-lead, tracing only Result Value Ref Range Interpretation ECG Click View Image link to view waveform and result Head CT w/o contrast Narrative CT SCAN OF THE HEAD WITHOUT CONTRAST 03/15/2019 6:30 PM HISTORY: Seizure, new, non-traumatic, >40 years. TECHNIQUE: Axial images of the head and coronal reformations without IV contrast material. Radiation dose for this scan was reduced using automated exposure control, adjustment of the mA and/or kV according to patient size, or iterative reconstruction technique. COMPARISON: Head CT 01/07/2019, head MRI 01/16/2019. FINDINGS: Mild volume loss is present. White matter hypoattenuation likely represents chronic small vessel ischemic change. No evidence of acute ischemia, hemorrhage, mass, mass effect, or hydrocephalus. The visualized calvarium, tympanic cavities, mastoid cavities, and paranasal sinuses are unremarkable. Impression IMPRESSION: No acute intracranial abnormality. RADHA ZAIDI MD CTA Head Neck with Contrast Narrative CT ANGIOGRAM OF THE HEAD AND NECK WITH CONTRAST 03/15/2019 6:31 PM HISTORY: Neurological deficit(s), subacute. Bit tongue (question seizure), word finding difficulty. TECHNIQUE: CT angiography with an injection of 70 mL Isovue-370 IV with scans through the head and neck. Images were transferred to a separate 3-D workstation where multiplanar reformations and 3-D images were created. Estimates of carotid stenoses are made relative to the distal internal carotid artery diameters except as noted. Radiation dose for this scan was reduced using automated exposure control, adjustment of the mA and/or kV according to patient size, or iterative reconstruction technique. COMPARISON: None. CT ANGIOGRAM HEAD FINDINGS: The intracranial vertebral arteries, basilar artery, and posterior cerebral arteries are patent. The internal carotid arteries, anterior cerebral arteries, and middle cerebral arteries are patent. No evidence of large vessel occlusion. No aneurysms are identified. There is origin of the left posterior cerebral artery. CT ANGIOGRAM NECK FINDINGS: The bilateral common carotid, internal carotid, external carotid, and vertebral arteries are patent. There is mild plaquing at the right carotid bifurcation without evidence of flow-limiting stenosis. No evidence of dissection. The thyroid gland is markedly enlarged and heterogeneous in enhancement with multiple punctate calcifications. There is mild narrowing of the upper thoracic trachea. No definite cervical lymphadenopathy is identified. Moderate cervical spine degenerative changes present. Impression IMPRESSION: CTA Head: Unremarkable vasculature. CTA Neck: 1. Unremarkable vasculature. 2. Marked enlargement of the thyroid gland with heterogeneous enhancement and mild tracheal narrowing. RADHA ZAIDI MD Basic metabolic panel Result Value Ref Range Sodium 143 133 - 144 mmol/L Potassium 3.7 3.4 - 5.3 mmol/L Chloride 110 (H) 94 - 109 mmol/L Carbon Dioxide 29 20 - 32 mmol/L Anion Gap 4 3 - 14 mmol/L Glucose 87 70 - 99 mg/dL Urea Nitrogen 19 7 - 30 mg/dL Creatinine 0.56 0.52 - 1.04 mg/dL GFR Estimate >90 >60 mL/min/[1.73_m2] GFR Estimate If Black >90 >60 mL/min/[1.73_m2] Calcium 8.7 8.5 - 10.1 mg/dL CBC with platelets Result Value Ref Range WBC 6.1 4.0 - 11.0 10e9/L RBC Count 4.16 3.8 - 5.2 10e12/L Hemoglobin 12.7 11.7 - 15.7 g/dL Hematocrit 37.6 35.0 - 47.0 % MCV 90 78 - 100 fl MCH 30.5 26.5 - 33.0 pg MCHC 33.8 31.5 - 36.5 g/dL RDW 14.6 10.0 - 15.0 % Platelet Count 240 150 - 450 10e9/L INR Result Value Ref Range INR 2.48 (H) 0.86 - 1.14 Imaging and procedures: I personally reviewed these images. CT head was unremarkable. CTA head and neck was unremarkable. Enlarged thyroid gland was noted. documented in this encounter ED Notes Elizabeth Garcia RN - 03/15/2019 7:58 PM CDT [facility] ED Nurse Handoff Report ED Chief complaint: Altered Mental Status ED Diagnosis: Final diagnoses: Pressure injury of left ischium, stage 3 (H) Aphasia Open wound of tongue due to bite Seizure, suspected Thyromegaly Code Status: Full Code Allergies: Allergies Allergen Reactions ??? Cephalexin Hives Keflex - hives ??? Lanolin Other (See Comments) skin irritation ??? Lisinopril Cough ??? Neomycin Other (See Comments) skin irritation ??? Penicillins Hives ??? Bactroban [Mupirocin Calcium] Rash ??? Mupirocin Rash and Unknown Activity level - Baseline/Home: Independent Activity Level - Current: Stand with Assist of 2 Patient's Preferred language: Kitt[place] Conveyor Monitor Needed?: No Isolation: No Infection: Not Applicable Bariatric?: No Vital Signs: Vitals: 03/15/19 1827 03/15/19 1830 03/15/19 1900 03/15/19 1930 BP: (!) 141/72 (!) 141/72 135/79 133/64 Pulse: 78 78 80 73 Resp: 18 25 23 23 Temp: TempSrc: SpO2: 98% 98% 97% 94% Weight: Cardiac Rhythm: , Cardiac Cardiac Rhythm: Atrial fibrillation Pain level: Is this patient confused?: Yes Does this patient have a guardian? No If yes, is there guardianship documents in the Epic Code/ACP activity? N/A Guardian Notified? N/A [place] - Suicide Severity Rating Scale Completed? No, secondary to confusion; unable to answer questions. If yes, what color did the patient score? White Patient Report: Initial Complaint: C/O confusion; Last known well time per ems was 1500 on 03/14/19 but sister states she talked to pt today at 1600 and she wouldn't have been able to tell anything wasdifferent. Focused Assessment: Alert to self. Able to follow commands. EMS states they saw slight facial droop;Not noted here. Pt bit tongue and had dried blood on face. Pt seems lucid at times in ED per family.Pt in afb CVR; Other VSS. Up with assist of 2 for commode; Now has purewick in place. Pt does have significant wound to inner buttocks. Tests Performed: labs, CT, UA Abnormal Results: Results for orders placed or performed during the hospital encounter of 03/15/[address] w/o contrast Narrative CT SCAN OF THE HEAD WITHOUT CONTRAST 03/15/2019 6:30 PM HISTORY: Seizure, new, non-traumatic, >40 years. TECHNIQUE: Axial images of the head and coronal reformations without IV contrast material. Radiation dose for this scan was reduced using automated exposure control, adjustment of the mA and/or kV according to patient size, or iterative reconstruction technique. COMPARISON: Head CT 01/07/2019, head MRI 01/16/2019. FINDINGS: Mild volume loss is present. White matter hypoattenuation likely represents chronic small vessel ischemic change. No evidence of acute ischemia, hemorrhage, mass, mass effect, or hydrocephalus. The visualized calvarium, tympanic cavities, mastoid cavities, and paranasal sinuses are unremarkable. Impression IMPRESSION: No acute intracranial abnormality. RADHA ZAIDI MD CTA Head Neck with Contrast Narrative CT ANGIOGRAM OF THE HEAD AND NECK WITH CONTRAST 03/15/2019 6:31 PM HISTORY: Neurological deficit(s), subacute. Bit tongue (question seizure), word finding difficulty. TECHNIQUE: CT angiography with an injection of 70 mL Isovue-370 IV with scans through the head and neck. Images were transferred to a separate 3-D workstation where multiplanar reformations and 3-D images were created. Estimates of carotid stenoses are made relative to the distal internal carotid artery diameters except as noted. Radiation dose for this scan was reduced using automated exposure control, adjustment of the mA and/or kV according to patient size, or iterative reconstruction technique. COMPARISON: None. CT ANGIOGRAM HEAD FINDINGS: The intracranial vertebral arteries, basilar artery, and posterior cerebral arteries are patent. The internal carotid arteries, anterior cerebral arteries, and middle cerebral arteries are patent. No evidence of large vessel occlusion. No aneurysms are identified. There is origin of the left posterior cerebral artery. CT ANGIOGRAM NECK FINDINGS: The bilateral common carotid, internal carotid, external carotid, and vertebral arteries are patent. There is mild plaquing at the right carotid bifurcation without evidence of flow-limiting stenosis. No evidence of dissection. The thyroid gland is markedly enlarged and heterogeneous in enhancement with multiple punctate calcifications. There is mild narrowing of the upper thoracic trachea. No definite cervical lymphadenopathy is identified. Moderate cervical spine degenerative changes present. Impression IMPRESSION: CTA Head: Unremarkable vasculature. CTA Neck: 1. Unremarkable vasculature. 2. Marked enlargement of the thyroid gland with heterogeneous enhancement and mild tracheal narrowing. RADHA ZAIDI MD CBC with platelets differential Result Value Ref Range WBC 7.5 4.0 - 11.0 10e9/L RBC Count 4.67 3.8 - 5.2 10e12/L Hemoglobin 14.3 11.7 - 15.7 g/dL Hematocrit 42.0 35.0 - 47.0 % MCV 90 78 - 100 fl MCH 30.6 26.5 - 33.0 pg MCHC 34.0 31.5 - 36.5 g/dL RDW 14.2 10.0 - 15.0 % Platelet Count 281 150 - 450 10e9/L Diff Method Automated Method % Neutrophils 86.3 % % Lymphocytes 8.5 % % Monocytes 4.5 % % Eosinophils 0.1 % % Basophils 0.3 % % Immature Granulocytes 0.3 % Nucleated RBCs 0 0 /100 Absolute Neutrophil 6.3 1.6 - 8.3 10e9/L Absolute Lymphocytes 0.6 (L) 0.8 - 5.3 10e9/L Absolute Monocytes 0.3 0.0 - 1.3 10e9/L Absolute Eosinophils 0.0 0.0 - 0.7 10e9/L Absolute Basophils 0.0 0.0 - 0.2 10e9/L Abs Immature Granulocytes 0.0 0 - 0.4 10e9/L Absolute Nucleated RBC 0.0 INR Result Value Ref Range INR 2.09 (H) 0.86 - 1.14 Comprehensive metabolic panel Result Value Ref Range Sodium 140 133 - 144 mmol/L Potassium 4.0 3.4 - 5.3 mmol/L Chloride 107 94 - 109 mmol/L Carbon Dioxide 28 20 - 32 mmol/L Anion Gap 5 3 - 14 mmol/L Glucose 128 (H) 70 - 99 mg/dL Urea Nitrogen 26 7 - 30 mg/dL Creatinine 0.41 (L) 0.52 - 1.04 mg/dL GFR Estimate >90 >60 mL/min/[1.73_m2] GFR Estimate If Black >90 >60 mL/min/[1.73_m2] Calcium 9.1 8.5 - 10.1 mg/dL Bilirubin Total 0.5 0.2 - 1.3 mg/dL Albumin 3.2 (L) 3.4 - 5.0 g/dL Protein Total 8.2 6.8 - 8.8 g/dL Alkaline Phosphatase 109 40 - 150 U/L ALT 25 0 - 50 U/L AST 24 0 - 45 U/L UA with Microscopic Result Value Ref Range Color Urine Yellow Appearance Urine Cloudy Glucose Urine Negative NEG^Negative mg/dL Bilirubin Urine Negative NEG^Negative Ketones Urine Negative NEG^Negative mg/dL Specific [place] Urine 1.030 1.003 - 1.035 Blood Urine Negative NEG^Negative pH Urine 5.5 5.0 - 7.0 pH Protein Albumin Urine 30 (A) NEG^Negative mg/dL Urobilinogen mg/dL Normal 0.0 - 2.0 mg/dL Nitrite Urine Negative NEG^Negative Leukocyte Esterase Urine Negative NEG^Negative Source Midstream Urine WBC Urine 0 0 - 5 /HPF RBC Urine 0 0 - 2 /HPF Squamous Epithelial /HPF Urine 2 (H) 0 - 1 /HPF Mucous Urine Present (A) NEG^Negative /LPF Creatinine POCT Result Value Ref Range Creatinine 0.5 (L) 0.52 - 1.04 mg/dL GFR Estimate >90 >60 mL/min/[1.73_m2] GFR Estimate If Black >90 >60 mL/min/[1.73_m2] EKG 12-lead, tracing only Result Value Ref Range Interpretation ECG Click View Image link to view waveform and result Treatments provided: sean Family Comments: family @ bedside OBS brochure/video discussed/provided to patient/family: N/A Name of person given brochure if not patient: NA Relationship to patient: NA ED Medications: Medications levETIRAcetam (KEPPRA) 2,000 mg in sodium chloride 0.9 % 250 mL intermittent infusion (has no administration in time range) Saline Flush - CT (90 mLs Intravenous Given 03/15/191818) iopamidol (ISOVUE-370) solution 70 mL (70 mLs Intravenous Given 03/15/191818) Drips infusing?: No For the majority of the shift this patient was Green. Interventions performed were NA. Severe Sepsis OR Septic Shock Diagnosis Present: No To be done/followed up on inpatient unit: See [facility] ED NURSE PHONE NUMBER: [id number] Elizabeth Garcia RN - 03/15/2019 7:49 PM CDT Pt able to swallow water; No coughing noted afterwards. Dr. Breaux states pt able to eat food. Susi Duarte RN - 03/15/2019 4:56 PM CDT Last known normal was 3pm yesterday. Home health aide noticed pt having confusion today. Pt normallyA&Ox4. Pt A&oX 1-2 while in ED. Pt noted to have expressive aphasia and possible left sided facial droop. Patient has dried blood to both sides of mouth. Both sides of tongue appear to be bitten. No seizure hx. Pt denies pain. Patient has large wound to inner left buttock. Mt Woodard RN - 03/15/2019 4:55 PM CDT Bed: ED02 Expected date: 03/15/19 Expected time: 4:40 PM Means of arrival: Ambulance Comments: HEast 73f CVA confusion ETA 1650 Lucero Breaux MD - 03/15/2019 4:55 PM CDT History Chief Complaint: Altered Mental Status The history is provided by the EMS personnel. The history is limited by the condition of the patient. Marzena Evans is a 74 year old female with a history of hypertension, PE on Coumadin, lymphedema, amongst others who presents with altered mental status via EMS. Per report, the patient was last knownat baseline yesterday around 1500. Today the patient appeared to be confused, experiencing speech difficulties, and possible slight left facial droop. She reportedly thought it was 1964 but was able totell she was [place] however unable to answer other questions appropriately. The patient also had noted dried blood streaking down the sides of her face with laceration to her tongue which it appears that she bit it. At baseline the patient is oriented x4 and uses a walker to ambulate. Her blood sugar was at 136. She denies dysuria. There is no known history of similar onset. Allergies: Cephalexin; hives Lanolin Lisinopril Neomycin Penicillins; hives Bactroban; rash Mupirocin; rash Medications: Tenormin Calcium D3 Zyrtec Topicort Ferosul Lasix Hydrocortisone Cozaar Mycostatin Nystop Coumadin Past Medical History: Hypertension benign positional vertigo Coagulation disorder Transient confusion GERD Corneal epithelial and basement membrane dystrophy Obese CEFERINO Other lymphedema Pulmonary embolism and infarction Rhabdomyolysis Nuclear sclerosis of both eyes Dermatitis Binge eating Eczema Myopia Macular degeneration (senile) of retina cataract Lymphedema Adjustment reaction Pressure ulcer Cataracts Adjustment reaction Past Surgical History: cholecystectomy Colonoscopy Phacoemulsification clear cornea with standard intraocular lens implant x2 Tonsillectomy and adenoidectomy Family History: Mother: hypertension, thyroid disease Father: prostate cancer, skin cancer Sister: hypertension, celiac disease Brother: IBS Paternal aunt: breast cancer x3 Paternal grandmother: Coronary Artery Disease Maternal grandmother: Cerebrovascular Disease Social History: The patient was accompanied to the ED by EMS. Smoking Status: Never Smoker Smokeless Tobacco: Never Used Alcohol Use: Negative Drug Use: Negative PCP: Lucero Stevenson Marital Status: Single Review of Systems Unable to perform ROS: Mental status change Physical Exam Patient Vitals for the past 24 hrs: BP Temp Temp src Pulse Heart Rate Resp SpO2 Weight 03/15/19 1930 133/64 -- -- 73 78 23 94 % -- 03/15/19 1900 135/79 -- -- 80 85 23 97 % -- 03/15/19 1830 (!) 141/72 -- -- 78 82 25 98 % -- 03/15/19 1827 (!) 141/72 -- -- 78 80 18 98 % -- 03/15/19 1740 (!) 147/86 -- -- -- -- -- 95 % -- 03/15/19 1704 (!) 168/104 -- -- -- -- -- -- -- 03/15/19 1703 -- 98.5 ??F (36.9 ??C) Temporal 85 -- 28 97 % (!) 161 kg (355 lb) Physical Exam Head: The scalp, face, and head appear normal and symmetric Eyes: Sclera white; PERRL; EOMI ENT: External ears and nares normal, tongue bites bilaterally Neck: No midline tenderness or bruit CV: Rate as above with regular rhythm Resp: Breath sounds clear and equal bilaterally GI: Abdomen is soft, non-tender, non-distended MS: Moves all extremities Neuro: Follows commands. Year 1962. I point to watch: clock - watch. I point to band: band aid ... Band ... Aid. I point to pen: pencil. Some gibberish. Strength 5/5 x4. Sensation intact x4. No drift. ?? [employer] Stroke Scale Exam Interval: Baseline ?? Score Level of consciousness: (0) Alert, keenly responsive LOC questions: (1) Answers one question correctly LOC commands: (0) Performs both tasks correctly Best gaze: (0) Normal Visual: (0) No visual loss Facial palsy: (0) Normal symmetrical movements Motor arm (left): (0) No drift Motor arm (right): (0) No drift Motor leg (left): (0) No drift Motor leg (right): (0) No drift Limb ataxia: (0) Absent Sensory: (0) Normal- no sensory loss Best language: (1) Mild to moderate aphasia Dysarthria: (0) Normal Extinction and inattention: (0) No abnormality ? Total Score: 2 ?? Emergency Department Course ECG: ECG taken at 1732, ECG read at 1736 Atrial fibrillation Abnormal ECG No significant change compared to EKG dated 01/07/19 Rate 83 bpm. ME interval * ms. QRS duration 100 ms. QT/QTc 378/444 ms. P-R-T axes * 37 13. Imaging: Radiology findings were communicated with the patient's family who voiced understanding of the findings. CTA Head Neck with Contrast CTA Head: Unremarkable vasculature. CTA Neck: 1. Unremarkable vasculature. 2. Marked enlargement of the thyroid gland with heterogeneous enhancement and mild tracheal narrowing. RADHA ZAIDI MD Reading per radiology Head CT w/o contrast Final Result No acute intracranial abnormality. RADHA ZAIDI MD Reading per radiology Laboratory: Laboratory findings were communicated with the patient's family who voiced understanding of the findings. CBC: WBC 7.5, HGB 14.3, PLT 281 CMP: Glucose 128 (H), Albumin 3.2 (L), o/w WNL (Creatinine 0.41 (L)) INR: 2.09 (H) Creatinine POCT: Creatinine 0.5 (L), GFR >90 UA: Protein Albumin 30 (A), Squamous Epithelial 2 (H), Mucous present (A), o/w WNL. Interventions: Medications levETIRAcetam (KEPPRA) 2,000 mg in sodium chloride 0.9 % 250 mL intermittent infusion (has no administration in time range) Saline Flush - CT (90 mLs Intravenous Given 03/15/191818) iopamidol (ISOVUE-370) solution 70 mL (70 mLs Intravenous Given 8/30/19 1819) Emergency Department Course: 165 Nursing notes and vitals reviewed. I performed an exam of the patient as documented above. 1710 Patient rechecked and updated. 1724 IV was inserted and blood was drawn for laboratory testing, results above. 1724 The patient provided a urine sample here in the emergency department. This was sent for laboratory testing, findings above. 1725 Blood drawn. This was sent to the lab for further testing, results above. 1732 EKG obtained as noted above. 1827 Patient rechecked. Daughter and sister currently in room. They both spoke to her around 1600 today. One thought that she had speech difficulty and one did, however they both agree that she is stuttering here. She was incontinent of urine at home. They report a significant family history of seizures. [address] Patience Cruz, Fellow of the stroke neurology service regarding patient's presentation, findings, and plan of care. [address] Holcomb of the neurology service regarding patient's presentation, findings, and plan of care. [address] Swanson of the hospitalist service from [facility] regarding patient's presentation, findings, and plan of care. Prior to admission, I personally reviewed the results with the patient and family and all related questions were answered. The patient and family verbalized understanding and is amenable to plan. Impression & Plan Medical Decision Making: Marzena Evans is a 74 year old female who presents to the emergency department today for evaluationof change in speech with last known well time over 24 hours ago. Based on this she does not meet code stroke criteria. Differential includes stroke, hemorrhage, intracranial mass, amongst others. Stroke evaluation was negative for ischemic event. With her associated tongue bite and urinary incontinence I am concerned this may have been actually a 1st time seizure presentation. This was dicussed with code stroke and general neurology. She continues to have intermittent speech changes here and was loaded with Keppra. She has a ischial decubitus wound but no evidence of cellulitis in this area. CT scanning was also notable for an enlarged thyroid. Diagnosis: ICD-10-CM 1. Pressure injury of left ischium, stage 3 (H) L89.323 CBC with platelets differential INR Comprehensive metabolic panel UA with Microscopic Creatinine POCT Creatinine POCT 2. Aphasia R47.01 3. Open wound of tongue due to bite S01.552A 4. Seizure, suspected R56.9 5. Thyromegaly E01.0 Disposition: The patient is admitted into the care of Dr. Swanson. Scribe Disclosure: IMichelle, am serving as a scribe at 4:57 PM on 03/15/2019 to document services personally performed by Lucero Breaux MD based on my observations and the provider's statements to me. EMERGENCY DEPARTMENT Lucero Breaux MD 03/16/193 documented in this encounter Miscellaneous Notes Plan of Care - Lisa Todd RN - 03/17/2019 5:21 PM CDT Patient discharged home. Discharge instruction reviewed with patient and she verbalized understanding. Gave patient her script for sean to pick med at her pharmacy and also updated the sister on this. Patient voided 75cc and PVR 30cc. Patient sister transporting patient home. Patient took all her belongings with her. Plan of Care - Eliza Denise, PT - 03/17/2019 5:20 PM CDT Physical Therapy Discharge Summary Reason for therapy discharge: Discharged to home with home therapy. Progress towards therapy goal(s). See goals on Care Plan in [facility] electronic health record for goal details. Goals partially met. Barriers to achieving goals: discharge from facility. Therapy recommendation(s): Continued therapy is recommended. Rationale/Recommendations: To increase mobility and independence. Plan of Care - Edelmira Olivier OT - 03/17/2019 5:20 PM CDT Occupational Therapy Discharge Summary Reason for therapy discharge: Discharged to home with home therapy. Progress towards therapy goal(s). See goals on Care Plan in [facility] electronic health record for goal details. Goals not met. Barriers to achieving goals: discharge from facility. Therapy recommendation(s): Continued therapy is recommended. Rationale/Recommendations: HH OT. Plan of Care - Brie Wise RN - 03/17/2019 2:08 PM CDT Pt here with suspected seizure and postictal AMS. A&Ox4. Neuros grossly intact, except baseline L droop and absent dorsi-plantar flexion LLE. VSS. Tele Afib w/ CVR. Regular diet, thin liquids. Takes pills whole. Up with SBA. Denies pain. Pt scoring green on the Aggression Stop Light Tool. Discharge to home w/ [facility]. Nursing will continue to monitor. ADDENDUM: Plan for pt to discharge this afternoon to home. Confirming ride w/ daughter. Scanlon removed at 1445, due to void. Plan of Care - Hayley Jimenez PT - 03/17/2019 12:37 PM CDT [employer] PT Patient plan for discharge: Home Current status: Pt able to demonstrate safe ambulation with FWW supervision in room 85ft; able to demonstrate safe static standing balance and reports decreased exertion with ambulation today. Limited by continuous EEG. Barriers to return to prior living situation: wound, Recommendations for discharge: Home with home PT/OT/RN for wound care Rationale for recommendations: At baseline pt has bath aid 2x/week and a PATTERNMAKER BENCH 2-3 hours daily. Pt is homebound at baseline. Currently she appears back to or near her cognitive baseline. Home OT/PT indicated as pt is homebound and would benefit from continued therapies to maximize activity tolerance, safety with ADL and IADL and progress to outdoor/community ambulation. Home RN warranted for wound care. Entered by: Hayley Jimenez 03/17/2019 12:37 PM Plan of Care - Monse Alaniz SLP - 03/17/2019 10:09 AM CDT [employer] Patient plan for discharge: Pt unsure of discharge plans/recommendations during discussion. Current status: Swallow Tx provided this AM during later portion of breakfast. Pt tolerated semi-soft and regular solids with thin liquids by cup with no overt s/sx of aspiration. Pt demonstrated improved rate of po intake in the absence of straw, as compared to yesterday. Recommend continuation of regular solids with thin liquids with NO STRAW. Pt must be seated upright, small bites/sips, alternate liquids/solids, use of liquid wash to ensure oral clearance. Recommend completion of formal speech/language evaluation due to possibility of pt discharging home pending progress during hospital stay. Pt reports continual improvement in speech/language skills near baseline, however [employer] noted slowed processing and delayed question/answer response during swallow tx. Barriers to return to prior living situation: cognition, below baseline Recommendations for discharge: TCU Rationale for recommendations: Anticipate pt will meet Swallow goals as IP. Entered by: Monse Alaniz 03/17/2019 10:09 AM Plan of Care - Prudence Jackson OT - 03/17/2019 8:54 AM CDT [employer] OT Patient plan for discharge: Home Current status: Pt on continuous EEG. Completed SLUMS with score of 28/30, indicating normal score. No word-finding difficulties noted with assessment. Barriers to return to prior living situation: falls risk, wound, level of assist with mobility Recommendations for discharge: Home with home PT/OT/RN for wound care (if meeting PT goals for safe mobility) Rationale for recommendations: At baseline pt has bath aid 2x/week and a PATTERNMAKER BENCH 2-3 hours daily. Pt is homebound at baseline. Currently she appears back to or near her cognitive baseline. Home would be appropriate if meeting PT goals for safe mobility at home. Home OT/PT indicated as pt is homebound and would benefit from continued therapies to maximize activity tolerance, safety with ADL and IADL and to reduce falls risk. Home RN warranted for wound care. Entered by: Prudence Jackson 03/17/2019 8:54 AM Plan of Care - Niharika Zafar - 03/17/2019 5:53 AM CDT Pt here with altered mental status due to a possible seizure. A&ox4. Neuros intact, just slow torespond at times. VSS on RA, but sleeps w/ CPAP. Tele A-fib w/ SVR. On regular diet with thin liquids and no straws. Takes pills whole without a problem. Up w/ 1 and a walker to BSC. Scanlon patent w/ adequately. 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 Dressing on gluteal fold CDI.Seizure precautions in place. On a bariatric pulsating mattress. Denies pain. Currently on EEG monitoring. Discharge pending progress, continue to monitor. Plan of Care - Lisa Todd RN - 03/16/2019 10:11 PM CDT Pt here with AMS due to possible seizure. A&O x 4. Forgetful. Generalized weakness. Slight left facial droop, baseline per family. Seizure precaution. No witnessed or reported seizure activity. Absent left dorsi and plantarflexion baseline per patient. VSS. Tele Afib with CVR. Regular diet, thin liquids no straw. Takes pills whole. Up with 1 with belt and walker. Denies pain. Pt scoring green on the Aggression Stop Light Tool. Left buttock wound. Dressing changed. Had stool this shift. Scanlon output 250cc. BLE edema. Plan wound consult. Continue video EEG monitor. Discharge to TCU pending. Plan of Care - Hayley Jimenez, PT - 03/16/2019 4:40 PM CDT [employer] PT Patient plan for discharge: Open to TCU if needed Current status: PT evaluation completed & tx initiated. Completes supine to EOB with SBA and extra time; pt slow moving. Dependently donning/doffing B shoes and L AFO. Sit <>stand with Nicole and FWW from bed surface height. Ambulates 60ft with FWW CGA. Barriers to return to prior living situation: impaired cognition/word-finding difficulties, level ofassist with ADL, Recommendations for discharge: TCU; may progress to be able to go home depending on LOS and progresswith therapies, as she is making good progress. Rationale for recommendations: Pt typically ambulates short distances in home [place]; also goes walking outside daily for a couple blocks. Pt lives alone in a townhome. Normally able to complete bed mobility, toileting and dressing Mod (I), but does have daily PATTERNMAKER BENCH for 2 hours for household tasks and sometimes LE dressing/cares. Has a bath aid 2x/week. Pt was mostly homebound at baseline; only drove to MD appts but recently had cataracts surgery and has not been driving x 2 months. At this time, she is not back to her baseline and TCU is recommended. If pt progresses, home with PT recommended forreturn to outdoor/community ambulation. Entered by: Hayley Jimenez 03/16/2019 4:40 PM Plan of Care - Brie Wise RN - 03/16/2019 3:52 PM CDT Pt here with suspected seizure. A&Ox4. Neuros intact, generalized weakness. VSS. Tele Afib w/ CVR. Regular diet, thin liquids, no straws. Takes pills whole. Up with A1 w/ GB and walker. Scanlon in place for wound healing. Dressing changed on wound in lower L gluteal region. Denies pain. Pt scoring green on the Aggression Stop Light Tool. Plan for MRI this afternoon and continuous EEG video monitorin g. Discharge plan pending, nursing will continue to monitor. Provider Notification - Aysha Pérez, CHANDLER - 03/16/2019 11:38 AM CDT Ok to be q4h neuro checks per Dr. Rosana Holcomb. No special care needed. Plan of Care - Monse Alaniz SLP - 03/16/2019 9:30 AM CDT [employer] Patient plan for discharge: Not discussed with pt this date. Current status: Bedside swallow eval completed this AM. Pt reports no past history of dysphagia/dietmodifications. Pt presents with mild oropharyngeal dysphagia characterized by reduced lingual ROM/coordination involving A/P movement, suspected premature entry x1, delayed swallow initiation. Immediate cough response noted following impulsive consecutive sips of thin by cup. Given verbal cues to consume single sip at a time, no additional overt s/sx of aspiration observed. Pt tolerated trials of pureed and regular solids. Recommend continuation of regular solids with thin liquids- NO STRAWS due to impulsivity with sips. Pt must be sitting upright, small bites/sips, alternate liquids/solids, liquidwash to ensure oral clearance, slow rate of intake. Pt verbalized understanding and agreement with diet recommendations. [employer] informally assessed speech/language skills within brief conversation, observation of phone conversation, question/answer and sentence generation task. Pt able to functionally communicate wants and needs, however processing and output noted to be slowed. Pt reports improvement in speech/language since yesterday. Barriers to return to prior living situation: Weakness, ?cognition Recommendations for discharge: TCU Rationale for recommendations: Skilled ST intervention indicated at next level of care to train safeswallow strategies and slow rate of intake. Recommend formal speech/language and cognition evaluation at next level of care. Entered by: Monse Alaniz 03/16/2019 9:31 AM Plan of Care - Prudence Jackson OT - 03/16/2019 9:00 AM CDT [employer] OT Patient plan for discharge: Open to TCU if needed Current status: OT eval completed and treatment initiated. Pt presents with moderate word-finding difficulties, but pleasant and able to follow all directions. Completes supine to EOB with Min A. Max Gab don B shoes and L AFO. Sit <>stand with CGA and WW from high surfaces. Ambulated around room with CGA and WW. Completed toilet transfer with commode overlay with CGA. Returned to supine at endof session. Uses CPAP at night but RA when awake during the day. Barriers to return to prior living situation: Falls risk, impaired cognition/word-finding difficulties, level of assist with ADL Recommendations for discharge: TCU; may progress to be able to go home depending on LOS and progresswith therapies, as she is making good progress. Rationale for recommendations: Pt lives alone in a townhome. Normally able to complete bed mobility,toileting and dressing Mod (I), but does have daily PATTERNMAKER BENCH for 2 hours for household tasks and sometimes LE dressing/cares. Has a bath aid 2x/week. Pt was mostly homebound at baseline; only drove to [place] appts but recently had cataracts surgery and has not been driving x 2 months. At this time, she is not back to her baseline and TCU is recommended. Entered by: Prudence Jackson 03/16/2019 9:00 AM Plan of Care - Niharika Zafar - 03/16/2019 5:41 AM CDT Pt here with possible seizure. Disoriented to time, and place. Neuros intact w/ the exception of herspeech, when asked when her birthday is she will often responds by saying random words. VSS on RA, but sleeps w/ CPAP. Tele A-fib w/ AVR. On regular diet. Takes pills whole without a problem. On bedrest w/ bathroom privileges, however pt is incontinent. Scanlon placed at midnight d/t large wound on L. gluteal fold. 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 Packed wound overnight w/ 4 sterile saline soaked gauze pads and covered with an ABD dressing. Seizure precautions in place. Bariatric pulsating mattress ordered. Denies pain. Plan to have an EEG sometime during the day. Discharge pending progress, continue to monitor. Pharmacy-Anticoagulation Service - Osmel Anderson, [facility] - 03/15/2019 9:24 PM CDT Clinical Pharmacy - Warfarin Dosing Consult Pharmacy has been consulted to manage this patient???s warfarin therapy. Indication: DVT/PE Prophylaxis Therapy Goal: INR 2-3 Warfarin Prior to Admission: Yes Warfarin [employer]IST Regimen: 13 mg on Mon, Thur; 10 mg Tue, Wed, Fri, Sat, Sun Significant drug interactions: none significant INR Date Value Ref Range Status 03/15/2019 2.09 (H) 0.86 - 1.14 Final 03/05/2019 2.3 (A) 0.9 - 1.1 Final Recommend warfarin 10 mg today. Pharmacy will monitor Marzena Evans daily and order warfarin doses to achieve specified goal. Please contact pharmacy as soon as possible if the warfarin needs to be held for a procedure or if the warfarin goals change. Pharmacy-Admission Medication History - Zeenat Love [facility] - 03/15/2019 8:59 PM CDT Admission medication history interview status for the 03/15/2019 admission is complete. See [facility] admission navigator for prior to admission medications Medication history source reliability:Moderate Actions taken by pharmacist (provider contacted, etc): spoke to pt, but a little groggy Additional medication history information not noted on [employer] med list : need to confirm furosemide dose with pt when able - Verified that patient is taking furosemide 40 mg daily (she splits tablets in half for ease of administration, takes a total of 40 mg daily). Zeenat Love, PharmD, BCPS Medication reconciliation/reorder completed by provider prior to medication history? No Time spent in this activity: 15 minutes Prior to Admission medications Medication Sig Last Dose Taking? Auth Provider acetaminophen (TYLENOL) 325 MG tablet Take 325 mg by mouth daily as needed prn med Yes Unknown, Entered By History ascorbic acid (VITAMIN C) 500 MG tablet Take 500 mg by mouth daily 03/15/2019 at Unknown time Yes Reported, Patient atenolol (TENORMIN) 25 MG tablet TAKE 1 TABLET BY MOUTH TWICE DAILY 03/15/2019 at x1 Yes Lucero Stevenson MD Calcium Carb-Cholecalciferol (CALCIUM + D3) 600-200 MG-UNIT TABS Take 1 tablet by mouth daily 03/15/2019 at Unknown time Yes Reported, Patient cetirizine (ZYRTEC) 10 MG tablet Take 10 mg by mouth 2 times daily 03/15/2019 at x1 Yes Reported, Patient Cholecalciferol (VITAMIN D PO) Take 2,000 Units by mouth daily 03/15/2019 at Unknown time Yes Reported, Patient desoximetasone (TOPICORT) 0.05 % GEL Apply topically 2 times daily as needed for inflammation or itching prn med Yes Unknown, Entered By History FEROSUL 325 (65 Fe) MG tablet Take 1 tablet (325 mg) by mouth daily (with breakfast) 03/15/2019 at Unknown time Yes Lucero Stevenson MD hydrocortisone 2.5 % ointment Daily as needed prn med Yes Chastity Montero MD ketorolac (ACULAR) 0.5 % ophthalmic solution Apply 1 drop to eye 3 times daily 03/14/2019 at Unknown time Yes Unknown, Entered By History losartan (COZAAR) 50 MG tablet TAKE 1 TABLET(50 MG) BY MOUTH DAILY 03/15/2019 at Unknown time Yes Lucero Stevenson MD Multiple Vitamins-Minerals (PRESERVISION/LUTEIN) CAPS Take 1 tablet by mouth 2 times daily 03/15/2019at Unknown time Yes Unknown, Entered By History multivitamin w/minerals (THERA-VIT-M) tablet Take 1 tablet by mouth daily 03/15/2019 at Unknown time Yes Unknown, Entered By History nystatin (MYCOSTATIN) 592884 UNIT/GM external cream Apply topically daily as needed prn med Yes Reported, Patient nystatin (NYSTOP) 602358 UNIT/GM external powder APPLY TOPICALLY TO THE AFFECTED AREA BENEATH BILATERAL BREAST/GROIN FOLDS TWICE DAILY UNTIL RESOLVED. prn med Yes Lucero Stevenson MD ofloxacin (OCUFLOX) 0.3 % ophthalmic solution Apply 1 drop to eye 3 times daily 03/14/2019 at Unknowntime Yes Unknown, Entered By History WARFARIN SODIUM PO Take 13 mg by mouth On 03/14/2019 at Unknown time Yes Unknown, Entered By History WARFARIN SODIUM PO Take 10 mg by mouth Tue, Wed, Fri, Sat, Sun 03/13/2019 Yes Unknown, Entered By History furosemide (LASIX) 20 MG tablet Take 10 mg by mouth 2 times daily NOT TAKING Unknown, Entered By History furosemide (LASIX) 40 MG tablet TAKE 1 TABLET(40 MG) BY MOUTH DAILY 03/15/2019 AM YES Lucero Stevenson MD order for DME Equipment being ordered: Bariatric 4-wheeled walker Lucero Stevenson MD order for DME Equipment being ordered: Bariatric 4-wheeled walker Seat width needs to be 20 inches or greater Handlebar width needs to be 22 inches or greater Lucero Stevenson MD prednisoLONE acetate (PRED FORTE) 1 % ophthalmic suspension Apply 1 drop to eye 3 times daily More than a month at Unknown time Unknown, Entered By History warfarin (COUMADIN) 10 MG tablet Take 1 tablet (10 mg) by mouth daily or as directed by INR Clinic Lucero Stevenson MD Beth Mulder, PharmD documented in this encounter Plan of Treatment Upcoming Encounters Date Type Specialty Care Team Description 11/15/2022 Virtual Visit Pharm Haylie Gonzalez, [facility] [address] [place] [address] DR [place] [phone] (Wo rk) 11/15/2022 Virtual Visit [place] [address] [place] [address] DR [place] [phone] (Wo rk) 03/03/2023 Virtual Visit Neurology Erlinda Barber MD [address] [facility] [address] [place] [address] (Wo rk) Scheduled Referrals Name Type Priority Associated Diagnoses Order S chedule Home care nursing Referral Routine Pressure injury of left Ordered: 03/17/2019 referral ischium, stage 3 (H) Home Care PT Referral Referral Routine Lymphedema of both lower Ordered: 03/17/2019 for Hospital Discharge extremities Home Care OT Referral Referral Routine Transient alteratio n of Ordered: 03/17/2019 for Hospital Discharge awareness documented as of this encounter Procedures Procedure Name Priority Date/Time Associated Comments Diagnosis EEG ROUTINE 03/17/2019 5:20 PM Results f or this CDT procedure are i n the results section. INR Routine 03/17/2019 7:48 AM Pressure injury of Res ults for this CDT left ischium, stage procedur e are in 3 (H) the results section. MR BRAIN W/O CONTRAST Routine 03/16/2019 5:08 PM Results for this CDT procedure are i n the results section. MRV BRAIN W/O CONTRAST Routine 03/16/2019 5:08 PM Results for this CDT procedure are i n the results section. EEG VIDEO # OF Routine 03/16/2019 10:09 DAYS/HOURS AM CDT INR Routine 03/16/2019 8:07 AM Pressure injury of Res ults for this CDT left ischium, stage procedur e are in 3 (H) the results section. BASIC METABOLIC PANEL Routine 03/16/2019 8:07 AM Pressure inju ry of Results for this CDT left ischium, stage procedur e are in 3 (H) the results section. CBC WITH PLATELETS Routine 03/16/2019 8:07 AM Pressure injury of Results for this CDT left ischium, stage procedur e are in 3 (H) the results section. CTA HEAD NECK W STAT 03/15/2019 6:31 PM Result s for this CONTRAST CDT procedure are i n the results section. CT HEAD W/O CONTRAST STAT 03/15/2019 6:30 PM R esults for this CDT procedure are i n the results section. EKG 12-LEAD, TRACING STAT 03/15/2019 5:32 PM R esults for this ONLY CDT procedure are i n the results section. ISTAT CREATININE POCT Routine 03/15/2019 5:25 PM Pressure inju ry of Results for this CDT left ischium, stage procedur e are in 3 (H) the results section. CBC WITH PLATELETS & STAT 03/15/2019 5:24 PM Pressure injur y of Results for this DIFFERENTIAL CDT left ischium, stage procedur e are in 3 (H) the results section. TSH WITH FREE T4 Routine 03/15/2019 5:24 PM Pressure injury of Results for this REFLEX CDT left ischium, stage procedur e are in 3 (H) the results section. ROUTINE UA WITH STAT 03/15/2019 5:24 PM Pressure injury of Results for this MICROSCOPIC CDT left ischium, stage procedur e are in 3 (H) the results section. INR STAT 03/15/2019 5:24 PM Pressure injury of Res ults for this CDT left ischium, stage procedur e are in 3 (H) the results section. COMPREHENSIVE STAT 03/15/2019 5:24 PM Pressure injury of Re sults for this METABOLIC PANEL CDT left ischium, stage proce dure are in 3 (H) the results section. documented in this encounter Results EEG (03/17/2019 5:20 PM CDT) Procedure Note Qian Purvis MD - 03/17/20 5:20 PM CDT Procedure Date: 03/16/2019 LONG-TERM ELECTROENCEPHALOGRAM WITH VIDE O ORDERING PROVIDER: Qian frazier MD [facility] EEG #: [id number], LTV day 1. DATE OF EEG: From 03/16/2019-03/17/2019. This is a continuous video EEG performed in the standard international 10-20 electrode system. The awake activity shows mainly alpha frequency activity and is symmetric. There is posterior dominant rhythm of 9 Hz bilaterally with quiet wakefulness and e ye closure. There is intermittent left temporal slowing in the theta and rarely in the delta range. Hyperventilation and photic stimulation were performed with no additional abnormalities. Drowsiness was recorded w ith a dropout of the posterior dominant rhythm and increased theta frequency activity. Sleep was recorded with normal POSTs, vertex waves, and K complexes. During sleep, there was occasional left temporal sharp waves with phase reversal around F7 and T3. No seizures occurred during the recording. IMPRESSION: This is an abnormal continuo us video EEG due to: 1. Occasional left temporal epileptiform sharp waves during sleep. 2. Occasional left temporal slowing duri ng sleep and wakefulness. 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 Clinical correlation is recommended. No seizures occurred during the recording. QIAN PURVIS MD MT: DAYDAY Name: MARZENA EVANS Account: [id number] : 1945 Procedure Date: 03/16/20 Document: [id number] Qian Purvis MD IMG EEG ORDERABLES (ABNORMAL) INR (03/17/2019 7:48 AM CDT) P athologist Signature INR 2.92 (H) 0.86 - 1.14 03/17/2019 NABB 8:14 AM CDT [facility] Specimen Anatomical Collection Method Collection Time Receive d Time (Source) Location / / Volume Laterality Blood specimen 03/17/2019 7:48 AM 019 7:49 (specimen) CDT AM CDT Kalyn Swanson DO LAB - BLOOD ORDERABLES Performing Organization Address City/State/ZIP Code Phon e Number M [facility] [address] [place] [address] [facility] [address] [place] [address], [place] [phone] MR Brain w/o Contrast (03/16/2019 5:08 PM CDT) Anatomical Region Laterality Modality Head, SUBRAD MR NEURO, UMP MR NEURO, RAD MR Magnetic Resonance Specimen (Source) Anatomical Location Collection Method / Collectio n Time Received Time / Laterality Volume Impressions 03/16/2019 5:34 PM CDT IMPRESSION: 1. Susceptibility related signal loss al ozzie the left parietal lobe, calvarium, and scalp, presumably artifac t related to paramagnetic material or device along the scalp. This finding is new compared to 01/16/2019. 2. Otherwise unremarkable MRI of the hea d without contrast. 2. Opacification of the bilateral mastoi d cavities, likely inflammatory, unchanged. RADHA ZAIDI MD Narrative 03/16/2019 5:34 PM CDT MRI BRAIN WITHOUT CONTRAST ??03/16/2019 5:08 PM HISTORY: ??New onset seizures. TECHNIQUE: ??Multiplanar, multisequence MRI of the brain without gadolinium IV contrast material. ??Dedic ated coronal oblique series were acquired. COMPARISON: ??MRI head 01/16/2019. FINDINGS: ??Mild volume loss is present. The cerebral hemispheres, brainstem, and cerebellum otherwise demo nstrate normal morphology and signal. No evidence of acute ischemia, h emorrhage, mass, mass effect, or hydrocephalus. No abnormal diffusion restriction is identified. There is susceptibility related signal l oss along the left parietal lobe with corresponding loss of fat satu ration on T2 FLAIR imaging. The hippocampi, temporal lobes, fornicea l columns, and mamillary bodies are symmetric. Multiple subcentim eter perivascular spaces are present within the basal ganglia and tem poral stems. The visualized calvarium, paranasal sinuses, and extrac ranial soft tissues are unremarkable. There is opacification of bilateral mastoid cavities, likely inflammatory, unchanged. Procedure Note Radha Zaidi MD - 03/16/2019F ormatting of this note might be different from the original. MRI BRAIN WITHOUT CONTRAST 03/16/2019 5:0 8 PM HISTORY: New onset seizures. TECHNIQUE: Multiplanar, multisequence MR I of the brain without gadolinium IV contrast material. Dedicat ed coronal oblique series were acquired. COMPARISON: MRI head 01/16/2019. FINDINGS: Mild volume loss is present. T he cerebral hemispheres, brainstem, and cerebellum otherwise demo nstrate normal morphology and signal. No evidence of acute ischemia, h emorrhage, mass, mass effect, or hydrocephalus. No abnormal diffusion restriction is identified. There is susceptibility related signal l oss along the left parietal lobe with corresponding loss of fat satu ration on T2 FLAIR imaging. The hippocampi, temporal lobes, fornicea l columns, and mamillary bodies are symmetric. Multiple subcentim eter perivascular spaces are present within the basal ganglia and tem poral stems. The visualized calvarium, paranasal sinuses, and extrac ranial soft tissues are unremarkable. There is opacification of bilateral mastoid cavities, likely inflammatory, unchanged. IMPRESSION: 1. Susceptibility related signal loss al ozzie the left parietal lobe, calvarium, and scalp, presumably artifac t related to paramagnetic material or device along the scalp. This finding is new compared to 01/16/2019. 2. Otherwise unremarkable MRI of the hea d without contrast. 2. Opacification of the bilateral mastoi d cavities, likely inflammatory, unchanged. RADHA ZAIDI MD Qian Purvis MD IMG MRI ORDERABLES MRV Brain wo Contrast (03/16/2019 5:08 PM CDT) Anatomical Region Laterality Modality Head, SUBRAD MR NEURO, UMP MR NEURO, RAD MR Magnetic Resonance Specimen (Source) Anatomical Location Collection Method / Collectio n Time Received Time / Laterality Volume Impressions 03/16/2019 5:34 PM CDT IMPRESSION: Unremarkable MRV of the head without contrast. RADHA ZAIDI MD Narrative 03/16/2019 5:34 PM CDT MR VENOGRAM OF THE HEAD WITHOUT CONTRAST ??03/16/2019 5:08 PM HISTORY: New onset seizures, history of hypercoagulation. TECHNIQUE: 2D TOF and 2D phase contrast MR venogram without contrast material. COMPARISON: None. FINDINGS: ??The exam is limited due to l ack of intravenous contrast. The medial aspect of the left transverse sinus is diminutive with evidence of slow flow. The superior sagi ttal sinus, internal cerebral veins, vein of Ari, straight sinus, to rcula, right transverse sinus, bilateral sigmoid sinuses, and right jug ular bulb demonstrate normal flow-related enhancement. Procedure Note Radha Zaidi MD - 03/16/2019F ormatting of this note might be different from the original. MR VENOGRAM OF THE HEAD WITHOUT CONTRAST 03/16/2019 5:08 PM HISTORY: New onset seizures, history of hypercoagulation. TECHNIQUE: 2D TOF and 2D phase contrast MR venogram without contrast material. COMPARISON: None. FINDINGS: The exam is limited due to lac k of intravenous contrast. The medial aspect of the left transverse sinus is diminutive with evidence of slow flow. The superior sagi ttal sinus, internal cerebral veins, vein of Ari, straight sinus, to rcula, right transverse sinus, bilateral sigmoid sinuses, and right jug ular bulb demonstrate normal flow-related enhancement. IMPRESSION: Unremarkable MRV of the head without contrast. RADHA ZAIDI MD Qian Purvis MD IMG MRI ORDERABLES (ABNORMAL) INR (03/16/2019 8:07 AM CDT) P athologist Signature INR 2.48 (H) 0.86 - 1.14 03/16/2019 NABB 8:29 AM CDT [facility] Specimen Anatomical Collection Method Collection Time Receive d Time (Source) Location / / Volume Laterality Blood specimen 03/16/2019 8:07 AM 019 8:08 (specimen) CDT AM CDT Kalyn Swanson DO LAB - BLOOD ORDERABLES Performing Organization Address City/State/ZIP Code Phon e Number M [facility] [address] [address] [facility] [address] [address], [place] [phone] CBC with platelets (03/16/2019 8:07 AM CDT) P athologist Signature WBC 6.1 4.0 - 11.0 03/16/2019 NABB 10e9/L 8:19 AM [facility] RBC Count 4.16 3.8 - 5.2 03/16/2019 NABB 10e12/L 8:19 AM [facility] Hemoglobin 12.7 11.7 - 03/16/2019 NABB 15.7 g/dL 8:19 AM [facility] Hematocrit 37.6 35.0 - 03/16/2019 NABB 47.0 % 8:19 AM [facility] MCV 90 78 - 100 03/16/2019 [facility] fl 8:19 AM [facility] MCH 30.5 26.5 - 03/16/2019 NABB 33.0 pg 8:19 AM [facility] MCHC 33.8 31.5 - 03/16/2019 NABB 36.5 g/dL 8:19 AM [facility] RDW 14.6 10.0 - 03/16/2019 NABB 15.0 % 8:19 AM [facility] Platelet Count 240 150 - 450 03/16/2019 NABB 10e9/L 8:19 AM [facility] Specimen Anatomical Collection Method Collection Time Receive d Time (Source) Location / / Volume Laterality Blood specimen 03/16/2019 8:07 AM 019 8:08 (specimen) CDT AM CDT Kalyn Swanson DO LAB - BLOOD ORDERABLES Performing Organization Address City/State/ZIP Code Phon e Number [facility] [address] [address] [facility] [address] [address], [place] [phone] (ABNORMAL) Basic metabolic panel (03/16/2019 8:07 AM CDT) athologist Signature Sodium 143 133 - 144 03/16/2019 NABB mmol/L 8:32 AM [facility] Potassium 3.7 3.4 - 5.3 03/16/2019 [place] mmol/L 8:32 AM [facility] Chloride 110 (H) 94 - 109 03/16/2019 N[facility] mmol/L 8:32 AM [facility] Carbon Dioxide 29 20 - 32 03/16/2019 N[facility] mmol/L 8:41 AM [facility] Anion Gap 4 3 - 14 03/16/2019 N[facility] mmol/L 8:41 AM [facility] Glucose 87 70 - 99 03/16/2019 N[facility] mg/dL 8:41 AM [facility] Urea Nitrogen 19 7 - 30 03/16/2019 [facility] mg/dL 8:41 AM [facility] Creatinine 0.56 0.52 - 03/16/2019 NABB 1.04 mg/dL 8:41 AM [facility] GFR Estimate >90 >60 03/16/2019 NABB mL/min/{1. 8:41 AM [facility] 73_m2} HOSPITAL Comment: Non GFR Calc Starting 07/03/2018, serum creatinine ba sed estimated GFR (eGFR) will be calculated using the Chronic Kidney Dise [facility] Epidemiology Collaboration (CKD-EPI) equation. GFR Estimate If >90 >60 mL/min/{1.73_m2} 03/16/2019 8: 41 AM [facility] Comment: GFR Calc Starting 07/03/2018, serum creatinine ba sed estimated GFR (eGFR) will be calculated using the Chronic Kidney Dise [facility] Epidemiology Collaboration (CKD-EPI) equation. Calcium 8.7 8.5 - 10.1 mg/dL 03/16/2019 8:41 AM [facility] Specimen Anatomical Collection Method Collection Time Receive d Time (Source) Location / / Volume Laterality Blood specimen 03/16/2019 8:07 AM 019 8:08 (specimen) CDT AM CDT Kalyn Swanson DO LAB - BLOOD ORDERABLES Performing Organization Address City/State/ZIP Code Phon e Number [facility] [address], [place] [address] [phone] [facility] [address] [address], [place] [phone] CTA Head Neck with Contrast (03/15/2019 6:31 PM CDT) Anatomical Region Laterality Modality Head, SUBRAD CT NEURO, SUBRAD CT NEURO, UMP CT NEURO, Computed Tomography RAD CT Specimen (Source) Anatomical Location Collection Method / Collectio n Time Received Time / Laterality Volume Impressions 03/15/2019 7:24 PM CDT IMPRESSION: CTA Head: Unremarkable vasculature. CTA Neck: 1. Unremarkable vasculature. 2. Marked enlargement of the thyroid gla nd with heterogeneous enhancement and mild tracheal narrowing. RADHA ZAIDI MD Narrative 03/15/2019 7:[address] ANGIOGRAM OF THE HEAD AND NECK WITH CONTRAST ??03/15/2019 6:31 PM HISTORY: Neurological deficit(s), subacu te. Bit tongue (question seizure), word finding difficulty. TECHNIQUE: CT angiography with an inject ion of 70 mL Isovue-370 IV with scans through the head and neck. Im ages were transferred to a separate 3-D workstation where multiplan ar reformations and 3-D images were created. Estimates of carotid steno ses are made relative to the distal internal carotid artery diameters except as noted. Radiation dose for this scan was reduced using aut omated exposure control, adjustment of the mA and/or kV according to patient size, or iterative reconstruction technique. COMPARISON: None. CT ANGIOGRAM HEAD FINDINGS: The intracra nial vertebral arteries, basilar artery, and posterior cerebral a rteries are patent. The internal carotid arteries, anterior cere bral arteries, and middle cerebral arteries are patent. No evidenc e of large vessel occlusion. No aneurysms are identified. There is fe laura origin of the left posterior cerebral artery. CT ANGIOGRAM NECK FINDINGS: The bilatera l common carotid, internal carotid, external carotid, and vertebral arteries are patent. There is mild plaquing at the right carotid bifur cation without evidence of flow-limiting stenosis. No evidence of d issection. The thyroid gland is markedly enlarged a nd heterogeneous in enhancement with multiple punctate calci fications. There is mild narrowing of the upper thoracic trachea. No definite cervical lymphadenopathy is identified. Moderate cervical spine degenerative changes present. Procedure Note Radha Zaidi MD - 03/15/2019F ormatting of this note might be different from the original. CT ANGIOGRAM OF THE HEAD AND NECK WITH C KAUR 03/15/2019 6:31 PM HISTORY: Neurological deficit(s), subacu te. Bit tongue (question seizure), word finding difficulty. TECHNIQUE: CT angiography with an inject ion of 70 mL Isovue-370 IV with scans through the head and neck. Im ages were transferred to a separate 3-D workstation where multiplan ar reformations and 3-D images were created. Estimates of carotid steno ses are made relative to the distal internal carotid artery diameters except as noted. Radiation dose for this scan was reduced using aut omated exposure control, adjustment of the mA and/or kV according to patient size, or iterative reconstruction technique. COMPARISON: None. CT ANGIOGRAM HEAD FINDINGS: The intracra nial vertebral arteries, basilar artery, and posterior cerebral a rteries are patent. The internal carotid arteries, anterior cere bral arteries, and middle cerebral arteries are patent. No evidenc e of large vessel occlusion. No aneurysms are identified. There is fe laura origin of the left posterior cerebral artery. CT ANGIOGRAM NECK FINDINGS: The bilatera l common carotid, internal carotid, external carotid, and vertebral arteries are patent. There is mild plaquing at the right carotid bifur cation without evidence of flow-limiting stenosis. No evidence of d issection. The thyroid gland is markedly enlarged a nd heterogeneous in enhancement with multiple punctate calci fications. There is mild narrowing of the upper thoracic trachea. No definite cervical lymphadenopathy is identified. Moderate cervical spine degenerative changes present. IMPRESSION: CTA Head: Unremarkable vasculature. CTA Neck: 1. Unremarkable vasculature. 2. Marked enlargement of the thyroid gla nd with heterogeneous enhancement and mild tracheal narrowing. RADHA ZAIDI MD Lucero Breaux MD IMG CT ORDERABLES Head CT w/o contrast (03/15/2019 6:30 PM CDT) Anatomical Region Laterality Modality Head, SUBRAD CT NEURO, SUBRAD CT NEURO, UMP CT NEURO, Computed Tomography RAD CT Specimen (Source) Anatomical Location Collection Method / Collectio n Time Received Time / Laterality Volume Impressions 03/15/2019 6:42 PM CDT IMPRESSION: No acute intracranial abnormality. RADHA ZAIDI MD Narrative 03/15/2019 6:[address] SCAN OF THE HEAD WITHOUT CONTRAST ?? 03/15/2019 6:30 PM HISTORY: Seizure, new, non-traumatic, >4 0 years. TECHNIQUE: Axial images of the head and coronal reformations without IV contrast material. Radiation dose for this scan was reduced using automated exposure control, adjustment o f the mA and/or kV according to patient size, or iterative reconstruc tion technique. COMPARISON: Head CT 01/07/2019, head MRI 01/16/2019. FINDINGS: Mild volume loss is present. W bhavya matter hypoattenuation likely represents chronic small vessel i schemic change. No evidence of acute ischemia, hemorrhage, mass, mass e ffect, or hydrocephalus. The visualized calvarium, tympanic cavities, mastoid cavities, and paranasal sinuses are unremarkable. Procedure Note Radha Zaidi MD - 03/15/2019F ormatting of this note might be different from the original. CT SCAN OF THE HEAD WITHOUT CONTRAST 02/16 6:30 PM HISTORY: Seizure, new, non-traumatic, >4 0 years. TECHNIQUE: Axial images of the head and coronal reformations without IV contrast material. Radiation dose for this scan was reduced using automated exposure control, adjustment o f the mA and/or kV according to patient size, or iterative reconstruc tion technique. COMPARISON: Head CT 01/07/2019, head MRI 01/16/2019. FINDINGS: Mild volume loss is present. W bhavya matter hypoattenuation likely represents chronic small vessel i schemic change. No evidence of acute ischemia, hemorrhage, mass, mass e ffect, or hydrocephalus. The visualized calvarium, tympanic cavities, mastoid cavities, and paranasal sinuses are unremarkable. IMPRESSION: No acute intracranial abnorm ality. RADHA ZAIDI MD Lucero Breaux MD IMG CT ORDERABLES EKG 12-lead, tracing only (03/15/2019 5:32 PM CDT) [facility] Method Time Signature Interpretation ECG Click View RADIOLOGY Image link RESULTS to view waveform and result Specimen (Source) Anatomical Collection Method Collection Time Re ceived Time Location / / Volume Laterality 03/15/2019 5:32 PM CDT Lucero Breaux MD ECG ORDERABLES Performing Organization Address City/State/ZIP Code Phon e Number RADIOLOGY RESULTS (ABNORMAL) Creatinine POCT (03/15/2019 5:25 PM CDT) athologist Signature Creatinine 0.5 (L) 0.52 - 03/15/2019 [facility] CARE 1.04 mg/dL 5:28 PM CDT TEST, HANDHELD METER GFR Estimate >90 >60 03/15/2019 POINT OF CARE mL/min/{1. 5:28 PM CDT TEST, 73_m2} HANDHELD METER GFR Estimate If >90 >60 03/15/2019 POINT OF CARE Black mL/min/{1. 5:28 PM CDT TEST, 73_m2} [facility] Specimen Anatomical Collection Method Collection Time Receive d Time (Source) Location / / Volume Laterality 03/15/2019 5:25 PM 9 5:28 CDT PM CDT Lucero Breaux MD LAB - BEAKER POCT Performing Organization Address City/State/ZIP Code Phon e Number [facility] POINT OF CARE TEST, HANDHELD METER POINT OF CARE TEST, HANDHELD METER TSH with free T4 reflex (03/15/2019 5:24 PM CDT) athologist Signature TSH 0.76 0.40 - 4.00 03/15/2019 NABB mU/L 9:27 PM CDT [facility] Specimen Anatomical Collection Method Collection Time Receive d Time (Source) Location / / Volume Laterality 03/15/2019 5:24 PM 9 5:31 CDT PM CDT Lucero Breaux MD LAB - BLOOD ORDERABLES Performing Organization Address City/State/ZIP Code Phon e Number [facility] [address] [address] [facility] [address] [address], [place] [phone] (ABNORMAL) UA with Microscopic (03/15/2019 5:24 PM CDT) Patholo gist Method Time Signature Color Urine Yellow 03/15/2019 NABB 6:21 PM CDT [facility] Appearance Urine Cloudy 03/15/2019 [facility] PM CDT [facility] Glucose Urine Negative NEG^Negat 03/15/2019 N[place] vance mg/dL 6:21 PM [facility] Bilirubin Urine Negative NEG^Negat 03/15/2019 NAB[facility] vance 6:21 PM [facility] Ketones Urine Negative NEG^Negat 03/15/2019 N[place] vance mg/dL 6:21 PM [facility] Specific [place] 1.030 1.003 - 03/15/2019 NABB Urine 1.035 6:21 PM [facility] Blood Urine Negative NEG^Negat 03/15/2019 NAB[facility] vance 6:21 PM [facility] pH Urine 5.5 5.0 - 7.0 03/15/2019 NABB pH 6:21 PM [facility] Protein Albumin 30 (A) NEG^Negat 03/15/2019 NABB Urine vance mg/dL 6:21 PM [facility] Urobilinogen Normal 0.0 - 2.0 03/15/2019 NABB mg/dL mg/dL 6:21 PM [facility] Nitrite Urine Negative NEG^Negat 03/15/2019 N[facility] vance 6:21 PM [facility] Leukocyte Negative NEG^Negat 03/15/2019 NABB Esterase Urine vance 6:21 PM [facility] Source Midstream 03/15/2019 N[facility]B Urine 5:24 PM [facility] WBC Urine 0 0 - 5 03/15/2019 [facility] /HPF 6:21 PM [facility] RBC Urine 0 0 - 2 03/15/2019 [facility] /HPF 6:21 PM [facility] Squamous 2 (H) 0 - 1 03/15/2019 [facility] Epithelial /HPF /HPF 6:21 PM [facility] Mucous Urine Present (A) NEG^Negat 03/15/2019 N[place] vance /LPF 6:21 PM [facility] Specimen (Source) Anatomical Collection Method Collection Time Re ceived Time Location / / Volume Laterality Examination of 03/15/2019 5:24 03/15/2019 5:56 midstream urine PM [facility] specimen (procedure) Lucero Breaux MD LAB - URINE ORDERABLES Performing Organization Address City/State/ZIP Code Phon e Number M [facility] [address] [place] [address] [phone] [facility] [address] [place] [address], [place] [phone] (ABNORMAL) Comprehensive metabolic panel (03/15/2019 5:24 PM CDT) Analysis Performed At Patho logist Time Signature Sodium 140 133 - 144 03/15/2019 NABB mmol/L 6:03 PM [facility] Potassium 4.0 3.4 - 5.3 03/15/2019 [facility] mmol/L 6:03 PM [facility] Chloride 107 94 - 109 03/15/2019 [facility] mmol/L 6:03 PM [facility] Carbon Dioxide 28 20 - 32 03/15/2019 [facility] mmol/L 6:11 PM [facility] Anion Gap 5 3 - 14 03/15/2019 [facility] mmol/L 6:11 PM [facility] Glucose 128 (H) 70 - 99 03/15/2019 [facility] mg/dL 6:11 PM [facility] Urea Nitrogen 26 7 - 30 03/15/2019 [facility] mg/dL 6:11 PM [facility] Creatinine 0.41 (L) 0.52 - 03/15/2019 NABB 1.04 mg/dL 6:11 PM [facility] GFR Estimate >90 >60 03/15/2019 NABB mL/min/{1. 6:11 PM [facility] 73_m2} [facility] Comment: Non GFR Calc Starting 07/03/2018, serum creatinine ba sed estimated GFR (eGFR) will be calculated using the Chronic Kidney Dise [facility] Epidemiology Collaboration (CKD-EPI) equation. GFR Estimate If >90 >60 mL/min/{1.73_m2} 03/15/2019 6: 11 PM [facility] Comment: GFR Calc Starting 07/03/2018, serum creatinine ba sed estimated GFR (eGFR) will be calculated using the Chronic Kidney Dise [facility] Epidemiology Collaboration (CKD-EPI) equation. Calcium 9.1 8.5 - 10.1 03/15/2019 6:11 PM [facility] mg/dL [facility] Bilirubin Total 0.5 0.2 - 1.3 mg/dL 03/15/2019 6:13 PM [facility] Albumin 3.2 (L) 3.4 - 5.0 g/dL 03/15/2019 6:13 PM [facility] Protein Total 8.2 6.8 - 8.8 g/dL 03/15/2019 6:13 PM [facility] Alkaline Phosphatase 109 40 - 150 U/L 03/15/2019 6:13 PM [facility] ALT 25 0 - 50 U/L 03/15/2019 6:13 PM [facility] AST 24 0 - 45 U/L 03/15/2019 6:13 PM [facility] Specimen Anatomical Collection Method Collection Time Receive d Time (Source) Location / / Volume Laterality Blood specimen 03/15/2019 5:24 PM 019 5:31 (specimen) CDT PM CDT Lucero Breaux MD LAB - BLOOD ORDERABLES Performing Organization Address City/State/ZIP Code Phon e Number [facility] [address] [address] [facility] [address] [address], [place] [phone] (ABNORMAL) INR (03/15/2019 5:24 PM CDT) P athologist Signature INR 2.09 (H) 0.86 - 1.14 03/15/2019 NABB 5:49 PM T [facility] Specimen Anatomical Collection Method Collection Time Receive d Time (Source) Location / / Volume Laterality Blood specimen 03/15/2019 5:24 PM 019 5:31 (specimen) CDT PM CDT Lucero Breaux MD LAB - BLOOD ORDERABLES Performing Organization Address City/State/ZIP Code Phon e Number [facility] [address] [address] [facility] [address] [address], [place] [phone] (ABNORMAL) CBC with platelets differential (03/15/2019 5:24 PM CDT) [facility] Method Time Signature WBC 7.5 4.0 - 03/15/2019 [facility] 11.0 5:33 PM [facility] 10e9/L [facility] RBC Count 4.67 3.8 - 5.2 03/15/2019 [facility] 10e12/L 5:33 PM [facility] Hemoglobin 14.3 11.7 - 03/15/2019 [facility] 15.7 g/dL 5:33 PM [facility] Hematocrit 42.0 35.0 - 03/15/2019 [facility] 47.0 % 5:33 PM [facility] MCV 90 78 - 100 03/15/2019 [facility] fl 5:33 PM [facility] MCH 30.6 26.5 - 03/15/2019 [facility] 33.0 pg 5:33 PM [facility] MCHC 34.0 31.5 - 03/15/2019 [facility] 36.5 g/dL 5:33 PM [facility] RDW 14.2 10.0 - 03/15/2019 [facility] 15.0 % 5:33 PM [facility] Platelet Count 281 150 - 450 03/15/2019 [facility] 10e9/L 5:33 PM [facility] Diff Method Automated 03/15/2019 [facility] Method 5:38 PM [facility] % Neutrophils 86.3 % 03/15/2019 [facility] 5:38 PM [facility] % Lymphocytes 8.5 % 03/15/2019 [facility] 5:38 PM [facility] % Monocytes 4.5 % 03/15/2019 [facility] 5:38 PM [facility] % Eosinophils 0.1 % 03/15/2019 [facility] 5:38 PM [facility] % Basophils 0.3 % 03/15/2019 [facility] 5:38 PM [facility] % Immature 0.3 % 03/15/2019 [facility] Granulocytes 5:38 PM [facility] Nucleated RBCs 0 0 /100 03/15/2019 [facility] 5:38 PM [facility] Absolute 6.3 1.6 - 8.3 03/15/2019 [facility] Neutrophil 10e9/L 5:38 PM [facility] Absolute 0.6 (L) 0.8 - 5.3 03/15/2019 [facility] Lymphocytes 10e9/L 5:38 PM [facility] Absolute 0.3 0.0 - 1.3 03/15/2019 [facility] Monocytes 10e9/L 5:38 PM [facility] Absolute 0.0 0.0 - 0.7 03/15/2019 [facility] Eosinophils 10e9/L 5:38 PM [facility] Absolute 0.0 0.0 - 0.2 03/15/2019 [facility] Basophils 10e9/L 5:38 PM [facility] Abs Immature 0.0 0 - 0.4 03/15/2019 [facility] Granulocytes 10e9/L 5:38 PM [facility] Absolute 0.0 03/15/2019 [facility] Nucleated RBC 5:38 PM [facility] Specimen Anatomical Collection Method Collection Time Receive d Time (Source) Location / / Volume Laterality Blood specimen 03/15/2019 5:24 PM 019 5:31 (specimen) CDT PM CDT Lucero Breaux MD LAB - BLOOD ORDERABLES Performing Organization Address City/State/ZIP Code Phon e Number M [facility] [address] [address] [phone] [facility] [address] [address], [facility] [phone] documented in this encounter Visit Diagnoses Diagnosis Altered mental status - Primary Pressure injury of left ischium, stage 3 (H) Aphasia Open wound of tongue due to bite Seizure, suspected Other convulsions Thyromegaly Goiter, unspecified Pain Generalized pain retirement current use of anticoagulant t herapy Seizure (H) Other convulsions Lymphedema of both lower extremities Transient alteration of awareness Seizure (H) Other convulsions CEFERINO on CPAP Obstructive sleep apnea (adult) (pediatr ic) Morbid obesity -- BMI 55.6 Morbid obesity Lymphedema of both lower extremities Essential hypertension, benign 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 embolism Left Buttock Pressure Ulcer documented in this encounter Admitting Diagnoses Diagnosis Seizure (H) Other convulsions documented in this encounter Administered Medications Inactive Administered Medications - up to 3 most recent administrations Medication Order MAR Action Action Date Dose Rate Site atenolol (TENORMIN) tablet 25 mg Given 03/17/2019 8:52 AM CDT 25 mg 25 mg, Oral, 2 TIMES DAILY, First dose on Mon03/15/19 at 2115 Given 03/16/2019 8:52 PM CDT 25 mg Given 03/16/2019 8:57 AM CDT 25 mg diclofenac (VOLTAREN) 0.1 % ophthalmic Given 03/17/2019 3:41 PM CDT 1 drop solution 1 drop 1 drop, Ophthalmic, 3 TIMES DAILY, First dose on Mon03/15/19 at 2200, Therapeutic interchange for ketorolac 0.5% 1 drop tid. Given 03/17/2019 8:52 AM CDT 1 drop Given 03/16/2019 9:20 PM CDT 1 drop ferrous sulfate (FEROSUL) tablet 325 mg Given 03/17/2019 8:52 AM CDT 325 mg 325 mg, Oral, DAILY WITH BREAKFAST, First dose on 03/16/19 at 0900, Absorbed best on an empty stomach. If stomach upset occurs, can take with meals. Given 03/16/2019 8:57 AM CDT 325 mg iopamidol (ISOVUE-370) solution 70 mL Given 03/15/2019 6:19 PM CDT 70 mLs 70 mL, Intravenous, ONCE, On Mon03/15/19 at 1759, For 1 dose levETIRAcetam (KEPPRA) 2,000 mg in Given 03/15/2019 8:14 PM CDT 2,000 mg 1000 mL/hr sodium chloride 0.9 % 250 mL intermittent infusion 2,000 mg, Intravenous, Administer over 15 Minutes, at 1,000 mL/hr, ONCE, On Mon03/15/19 at 1936, For 1 dose levETIRAcetam (KEPPRA) intermittent Given 03/17/2019 8:52 AM CDT 1,000 mg infusion 1,000 mg 1,000 mg, Intravenous, Administer over 15 Minutes, EVERY 12 HOURS, First dose on 03/16/19 at 0800 Given 03/16/2019 8:53 PM CDT 1,000 mg Given 03/16/2019 8:56 AM CDT 1,000 mg losartan (COZAAR) tablet 50 mg Given 03/17/2019 8:52 AM CDT 50 mg 50 mg, Oral, DAILY, First dose on Mon03/16/19 at 0900 Given 03/16/2019 8:57 AM CDT 50 mg multivitamin w/minerals (THERA-VIT-M) Given 03/17/2019 2:31 PM C DT 1 tablet tablet 1 tablet 1 tablet, Oral, DAILY, First dose on Mon03/17/19 at 1230 ofloxacin (OCUFLOX) 0.3 % ophthalmic solution Given 3:40 PM CDT 1 drop 1 drop 1 drop, Ophthalmic, 3 TIMES DAILY, First dose on Mon03/15/19 at 2200 Given 03/17/2019 8:52 AM CDT 1 drop Given 03/16/2019 9:20 PM CDT 1 drop ondansetron (ZOFRAN) injection 4 mg 4 mg, Intravenous, EVERY 6 HOURS PRN, nausea, vomiting , Administer over 2-5 Minutes, Starting on Mon03/15/19 at 2048, This is Step 1 of nausea and vomiting management. If nausea not resolved in 15 minutes, go t o Step 2 prochlorperazine (COMPAZINE). Irritant. For ordered IV do ses 0.1-4 mg, give IV Push undiluted over 2-5 minutes. ondansetron (ZOFRAN-ODT) ODT tab 4 mg 4 mg, Oral, EVERY 6 HOURS PRN, nausea, v omiting, Starting on Mon03/15/19 at 2048, This is Step 1 of nausea and vomiting management. If n ausea not resolved in 15 minutes, go to Step 2 prochlorperazine (COMPAZINE). Do not push through foil backing. Peel back foil and gently remove. Place on to ngue immediately. Administration with liquid unnecessary W ith dry hands, peel back foil backing and gently remove tablet. Do not push oral d isintegrating tablet through foil backing. Administer immediately on tongue and oral disintegrati ng tablet dissolves in seconds, then swallow with saliva. Liquid not required . prochlorperazine (COMPAZINE) injection 5 mg 5 mg, Intravenous, EVERY 6 HOURS PRN, nausea, vomiting , Administer over 1-2 Minutes, Starting on Mon03/15/19 at 2048, This is Step 2 of nausea and vomiting management. Give if nausea not resolved 15 minutes aft er giving ondansetron (ZOFRAN). If nausea not resolved in 15 minutes, go to Step 3 metoclopramide (REGLAN), if ordered. For ordered IV dos es 0.1-10 mg, give IV Push undiluted. Each 5mg over 1 minute. prochlorperazine (COMPAZINE) Suppository 12.5 mg 12.5 mg, Rectal, EVERY 12 HOURS PRN, jair sea, vomiting, Starting on Mon03/15/19 at 2048, This is Step 2 of nausea and vomit ing management. Give if nausea not resolved 15 minutes after giving ondansetron (ZOF RAN). If nausea not resolved in 15 minutes, go to Step 3 metoclopramide (REGLAN), if ordered. prochlorperazine (COMPAZINE) tablet 5 mg 5 mg, Oral, EVERY 6 HOURS PRN, vomiting, Starting on Mon03/15/19 at 2048, This is Step 2 of nausea and vomiting management . Give if nausea not resolved 15 minutes after giving ondansetron (ZOFRAN). If na usea not resolved in 15 minutes, go to Step 3 metoclopramide (REGLAN), if ordered. Saline Flush - CT Given 03/15/2019 6:19 PM CDT 90 mLs Intravenous, 90 mL, ONCE, On Mon03/15/19 at 1759, For 1 dose, This entry is for use by Radiology to intermittently used as a flush in patients receiving a CT scan. senna-docusate (SENOKOT-S/PERICOLACE) 8. 6-50 MG per tablet 1 tablet 1 tablet, Oral, 2 TIMES DAILY PRN, const ipation, Starting on Mon03/15/19 at 2048, If no bowel movement in 24 hours, increa se to 2 tablets PO. Hold for loose stools. This is the first step of a three step constipation tr eatment. Hold for loose stools. senna-docusate (SENOKOT-S/PERICOLACE) 8. 6-50 MG per tablet 2 tablet 2 tablet, Oral, 2 TIMES DAILY PRN, const ipation, Starting on Mon03/15/19 at 2048, Hold for loose stools. This is the first step of a thr ee step constipation treatment. Hold for loose stools. sodium chloride (PF) 0.9% PF flush 3 mL Given 03/16/2019 9:20 PM CDT 3 mLs 3 mL, Intracatheter, EVERY 8 HOURS, First dose on Mon03/15/19 at 2100, And Q1H PRN, to lock peripheral IV dormant line. Given 03/15/2019 10:15 PM CDT 3 mLs sodium chloride 0.9% infusion New Bag 03/15/2019 10:10 PM CDT 100 mL/hr at 100 mL/hr, Intravenous, CONTINUOUS, Starting on Mon03/15/19 at 2100, Until 03/16/19 at 0659 warfarin (COUMADIN) tablet 10 mg Given 03/15/2019 10:04 PM CDT 10 mg 10 mg, Oral, ONCE AT 6PM, On Mon03/15/19 at 2130, For 1 dose warfarin (COUMADIN) tablet 10 mg Given 03/16/2019 6:39 PM CDT 10 mg 10 mg, Oral, ONCE AT 6PM, On 03/16/19 at 1800, For 1 dose Warfarin Therapy Reminder (Check START DATE - warfarin may be starting in the FUTURE) CONTINUOUS PRN, Starting on 03/16/19 at 1130, Until 03/17/19 at 1925, * Note to reorder warfarin (COUMADIN) daily* ME OVIDER is managing warfarin dosing Patient is on Warfarin Therapy - check for daily order documented in this encounter Active and Recently Administered Medications Times are shown in CDT. Scheduled Medication Order 03/15/2019 03/16/2019 03/17/2019 atenolol (TENORMIN) tablet 25 mg 2203 (Given - Provider: Heaven Zafar) 0857 (Given - Provider: Brie Wise RN)2051 (Given - Provider: Lisa Todd RN) 0852 (Given - Provider: Brie francis, CHANDLER) 25 mg, Oral, 2 TIMES DAILY, First dose on Mon03/15/19 at 2115 diclofenac (VOLTAREN) 0.1 % ophthalmic solution 1 drop 2205 (Given - Provider: Niharika Zafar) 0857 (Given - Provider: Brie francis, CHANDLER)1743 (Given - Provider: Lisa Todd RN)2119 (Given - Provider: Lisa Todd RN) 0852 (Given - Provider: Brie Wise, CHANDLER)154 (Given - Provider: Lisa Todd RN) 1 drop, Ophthalmic, 3 TIMES DAILY, First dose on Mon03/15/19 at 2200, Therapeutic interchange for ketorolac 0.5% 1 drop tid. ferrous sulfate (FEROSUL) tablet 325 mg 0857 (Given - Provider: Brie Wise RN) 0852 (Given - Provider: Brie francis, CHANDLER) 325 mg, Oral, DAILY WITH BREAKFAST, Firs t dose on 03/16/19 at 0900, Absorbed best on an empty stomach. If stomach upset occurs, can take with meals. gadobutrol (GADAVIST) injection 10 mL 22 (Canceled Entry - Provider: Xiomara Delgado, CHANDLER) 10 mL, Intravenous, ONCE, 03/16/19 at 1245, For 1 dose, Supplied by, and administered by MRI. iopamidol (ISOVUE-370) solution 70 mL (COMPLETED) 1818 (Given - Provider: Dayday Bynum) 70 mL, Intravenous, ONCE, Mon03/15/19 at 1759, For 1 dose levETIRAcetam (KEPPRA) 2,000 mg in sodiu m chloride 0.9 % 250 mL intermittent infusion (COMPLETED) 2013 (Given - Provider: Elizabeth Garcia, CHANDLER) 2030 (ED Infusing on Admission/transfer - Provider: Elizabeth Garcia, CHANDLER) 2,000 mg, Intravenous, Administer over 1 5 Minutes, ONCE, Mon03/15/19 at 1936, For 1 dose levETIRAcetam (KEPPRA) intermittent infusion 1,000 mg 0856 (Given - Provider: Brie Wise, CHANDLER - Comment: Scanner not working)2052 (Given - Provider: Lisa Todd RN) 0852 (Given - Provider: Brie francsi, CHANDLER) 1,000 mg, Intravenous, Administer over 1 5 Minutes, EVERY 12 HOURS, First dose on 03/16/19 at 0800 losartan (COZAAR) tablet 50 mg 0857 (Giv en - Provider: Brie Wise, CHANDLER) 0852 (Given - Provider: Brie francis, CHANDLER) 50 mg, Oral, DAILY, First dose on 03/16/19 at 0900 multivitamin w/minerals (THERA-VIT-M) tablet 1 tablet 1431 (Given - Provider: Brie Wise RN) 1 tablet, Oral, DAILY, First dose on 03/17/19 at 1230 ofloxacin (OCUFLOX) 0.3 % ophthalmic solution 1 drop 2 215 (Given - Provider: Niharika Zafar) 0857 (Given - Provider: rBie francis, CHANDLER)1742 (Given - Provider: Lisa Todd RN)2120 (Given - Provider: Lisa Todd RN) 0852 (Given - Provider: Brie Wise RN)1540 (Given - Provider: Lisa Todd RN) 1 drop, Ophthalmic, 3 TIMES DAILY, First dose on 03/15/19 at 2200 Saline Flush - CT (COMPLETED) 1818 (Given - Provider: Dayday Bynum) Intravenous, 90 mL, ONCE, 03/15/19 at 1759, For 1 dose, This entry is for use by Radiology to intermittently used as a flush in patients receiving a CT scan. Saline 2225 (Canceled Entry - Provider: Xiomara Delgado RN) As instructed, 50 mL, ONCE, 03/16/19 at 1245, For 1 dose, This entry is for use by Radiology to intermittently used as a flush in patients receiving a CT scan. sodium chloride (PF) 0.9% PF flush 3 mL 2231 (Not Give n - Provider: Xiomara Delgado RN - Reason: IV Infusing) 0426 (Not Given - Provider: Niharika Raza n - Reason: IV Infusing)1300 (Not Given - Provider: Brie Wise RN - Reason: IV Infusing)2123 (Not Given - Provider: Lisa Todd RN - Reason: Ot her - Comment: duplicate) 0553 (Not Given - Provider: Xiomara bautista RN - Reason: Patient sleeping)1431 (Not Given - Provider: Brie Wise RN - Reason: Loss of IV access) 3 mL, Intracatheter, EVERY 8 HOURS, Firs t dose on Mon03/15/19 at 2100, And Q1H PRN, to lock peripheral IV dormant line. sodium chloride (PF) 0.9% PF flush 3 mL 2215 (Given - Provid er: Niharika Zafar) 0426 (Not Given - Provider: Niharika Zafar - Reason: IV Infusing)1300 (Not Given - Provider: Brie Wise, CHANDLER - Reason: IV Infusing)2120 (Given - Provider: Lisa Todd RN) 0553 (Not Given - Provider: Xiomara bautista RN - Reason: Patient sleeping)1431 (Not Given - Provider: Brie Wise RN - Reason: Loss of IV access) 3 mL, Intracatheter, EVERY 8 HOURS, Firs t dose on Mon03/15/19 at 2100, And Q1H PRN, to lock peripheral IV dormant line. warfarin (COUMADIN) tablet 10 mg (COMPLETED) 2203 (Giv en - Provider: Niharika Zafar) 10 mg, Oral, ONCE AT 6PM, Mon03/15/19 at 2130, For 1 dose warfarin (COUMADIN) tablet 10 mg (COMPLETED) 1838 (Given - Provider: Lisa Todd RN) 10 mg, Oral, ONCE AT 6PM, 03/16/19 at 1800, For 1 dose Continuous Medication Order 03/15/2019 03/16/2019 03/17/2019 sodium chloride 0.9% infusion () 2210 (New Bag - Provider: Niharika Zafar) 1214 (Stopped - Provider: Brie Wise, CHANDLER) at 100 mL/hr, Intravenous, CONTINUOUS, S tarting Mon03/15/19 at 2100, Until 03/16/19 at 0659 PRN Medication Order 03/15/2019 03/16/2019 03/17/2019 acetaminophen (TYLENOL) Suppository 650 mg 650 mg, Rectal, EVERY 4 HOURS PRN, mild pain, Starting Mon03/15/19 at 2048, Alternate ibuprofen (if ordered) with acetaminophen. Maximum acetaminophen dose from all sources = 75 mg/kg/day not to exceed 4 grams/day. acetaminophen (TYLENOL) tablet 650 mg 650 mg, Oral, EVERY 4 HOURS PRN, mild pa in, Starting Mon03/15/19 at 2048, Alternate ibuprofen (if ordered) with acetaminophen. Maximum acetaminophen dose from all sources = 75 mg/kg/day not to exceed 4 grams/day. bacitracin ointment Topical, 3 TIMES DAILY PRN, other, for s ores on head after electrodes removed, Starting Mon03/15/19 at 2048, Apply to sores after electrodes removed. lidocaine (LMX4) cream Topical, EVERY 1 HOUR PRN, pain, with VA D insertion or accessing implanted port., Starting Mon03/15/19 at 2048, Do NOT give if patient has a history of allergy to any local anesthetic or any whitney pro duct. Apply at least 30 minutes prior to VAD insertion or port access. In divided doses as needed for size of site for insertion with MAX Dose: 2.5 g (?? of 5 g tube) lidocaine (XYLOCAINE) 2 % solution 5 mL 5 mL, Mouth/Throat, EVERY 6 HOURS PRN, o ther, mouth sores, Starting Mon03/15/19 at 2048 lidocaine 1 % 0.1-1 mL 0.1-1 mL, Other, EVERY 1 HOUR PRN, mild pain with VAD insertion., Starting Mon03/15/19 at 2048, Do NOT give if patient has a history of allergy to any local anesthetic or any whitney product. MAX dose 1 mL subcutaneous OR intradermal in divided doses as needed for V AD insertion. LORazepam (ATIVAN) injection 2 mg 2 mg, Intravenous, EVERY 5 MIN PRN, seiz ures, Starting Mon03/15/19 at 2048, For 4 doses, Administer only for: One general tonic-clonic seizure that lasts greater than 2 minutes. OR Two complex partial s eizures within a four hour period OR Any other type of epileptic seizure lasting more than 8 minutes Maximum total dose = 8 mg. Notify provider for further orders if LORazepam administration has been in itiated. This drug may cause significant respiratory depression. Monitor respiratory status and vital signs carefully for 1 hour after each dose. melatonin tablet 1 mg 1 mg, Oral, AT BEDTIME PRN, sleep, Start ing Mon03/15/19 at 2048, Do not give unless at least 6 hours of uninterrupted sleep is expected. naloxone (NARCAN) injection 0.1-0.4 mg 0.1-0.4 mg, Intravenous, EVERY 2 MIN PRN , opioid reversal, Starting Mon03/15/19 at 2048, For respiratory rate LESS than or EQUAL to 8. Partial reversal dose: 0.1 mg titrated q 2 minutes for Analgesia Si de Effects Monitoring Sedation Level of 3 (frequently drowsy, arousable, drifts to sleep during conversation).Full reversal dose: 0.4 mg bolus for Analgesia Side Effects Monitoring Sedation Level of 4 ( somnolent, minimal or no response to sti mulation). For ordered IV doses 0.1-2mg give IVP. Give each 0.4mg over 15 seconds in emergency situations. For non- emergent situations further dilute in 9mL of NS to facilitate titration of response. ondansetron (ZOFRAN) injection 4 mg(Linked Group 1) 4 mg, Intravenous, EVERY 6 HOURS PRN, na usea, vomiting, Administer over 2-5 Minutes, Starting Mon03/15/19 at 2048, This is Step 1 of nausea and vomiting management. If nausea not resolved in 15 minutes, go to Step 2 prochlorperazine (COMPAZIN E). Irritant. For ordered IV doses 0.1-4 mg, give IV Push undiluted over 2-5 minutes. ondansetron (ZOFRAN-ODT) ODT tab 4 mg(Linked Group 1) 4 mg, Oral, EVERY 6 HOURS PRN, nausea, v omiting, Starting Mon03/15/19 at 2048, This is Step 1 of nausea and vomiting management. If nausea not resolved in 15 minutes, go to Step 2 prochlorperazine (COMP AZINE). Do not push through foil backing . Peel back foil and gently remove. Place on tongue immediately. Administration with liquid unnecessary With dry hands, peel back foil backing and gently remove t ablet. Do not push oral disintegrating t ablet through foil backing. Administer immediately on tongue and oral disintegrating tablet dissolves in seconds, then swallow with saliva. Liquid not required. Patient is already receiving anticoagula tion with heparin, enoxaparin (LOVENOX), warfarin (COUMADIN) or other anticoagulant medication CONTINUOUS PRN, Starting Mon03/15/19 at 2048, Until 03/17/19 a t 1925 polyethylene glycol (MIRALAX/GLYCOLAX) Packet 17 g 17 g, Oral, DAILY PRN, constipation, Sta rting Mon03/15/19 at 2048, Give in 8oz of water, juice, or soda. Hold for loose stools. This is the second step of a three step constipation treatment. 1 Packet = 17 grams. Mix each gram with at least 1 /2 ounce (15 mL) of water - 8 ounces for 17 g dose, 4 ounces for 8.5 g dose, 2 ounces for 4 g dose. Follow with the same volume of water. Hold for loose stools. prochlorperazine (COMPAZINE) injection 5 mg(Linked Group 2) 5 mg, Intravenous, EVERY 6 HOURS PRN, na usea, vomiting, Administer over 1-2 Minutes, Starting Mon03/15/19 at 2048, This is Step 2 of nausea and vomiting management. Give if nausea not resolved 15 minute s after giving ondansetron (ZOFRAN). If nausea not resolved in 15 minutes, go to Step 3 metoclopramide (REGLAN), if ordered. For ordered IV doses 0.1-10 mg, give IV Push undiluted. Each 5mg over 1 minute. prochlorperazine (COMPAZINE) Suppository 12.5 mg(Linked Group 2) 12.5 mg, Rectal, EVERY 12 HOURS PRN, jair sea, vomiting, Starting Mon03/15/19 at 2048, This is Step 2 of nausea and vomiting management. Give if nausea not resolved 15 minutes after giving ondansetron (ZO LALITHA). If nausea not resolved in 15 roslyn regina, go to Step 3 metoclopramide (REGLAN), if ordered. prochlorperazine (COMPAZINE) tablet 5 mg(Linked Group 2) 5 mg, Oral, EVERY 6 HOURS PRN, vomiting, Starting Mon03/15/19 at 2048, This is Step 2 of nausea and vomiting management. Give if nausea not resolved 15 minutes after giving ondansetron (ZOFRAN). If naus ea not resolved in 15 minutes, go to Mikey p 3 metoclopramide (REGLAN), if ordered. senna-docusate (SENOKOT-S/PERICOLACE) 8. 6-50 MG per tablet 1 tablet(Linked Group 3) 1 tablet, Oral, 2 TIMES DAILY PRN, const ipation, Starting Mon03/15/19 at 2048, If no bowel movement in 24 hours, increase to 2 tablets PO. Hold for loose stools. This is the first step of a three step constipation treatment. Hold for loose stools. senna-docusate (SENOKOT-S/PERICOLACE) 8. 6-50 MG per tablet 2 tablet(Linked Group 3) 2 tablet, Oral, 2 TIMES DAILY PRN, const ipation, Starting Mon03/15/19 at 2048, Hold for loose stools. This is the first step of a three step constipation treatment. Hold for loose stools. sodium chloride (PF) 0.9% PF flush 3 mL 3 mL, Intracatheter, EVERY 1 MIN PRN, li ne flush, for peripheral IV flush post IV meds, Starting Mon03/15/19 at 2048 sodium chloride (PF) 0.9% PF flush 3 mL 3 mL, Intracatheter, EVERY 1 MIN PRN, li ne flush, for peripheral IV flush post IV meds, Starting Mon03/15/19 at 2048 Warfarin Therapy Reminder (Check START D ATE - warfarin may be starting in the FUTURE) CONTINUOUS PRN, Starting 03/16/19 at 1130, Until 03/17/19 at 1925, * Note to reorder warfarin (COUMADIN) daily* PROVIDER is managing warfarin dosing Patient is on Warfarin Therapy - check for daily order Linked Groups Order Group 1: ondansetron (ZOFRAN-ODT) ODT tab 4 mgJump to med 4 mg, Oral, EVERY 6 HOURS PRN, nausea, v omiting, Starting Mon03/15/19 at 2048
This is Step 1 of nausea and vomiting management. If nausea not resolved in 15 minutes, go to St ep 2 prochlorperazine (COMPAZINE). Do no t push through foil backing. Peel back foil and gently remove. Place on tongue immediately. Administration with liquid unnecessary With dry hands, peel b ack foil backing and gently remove table t. Do not push oral disintegrating tablet through foil backing. Administer immediately on tongue and oral disintegrating tablet dissolves in seconds, then swallow with saliva. Liquid not required.
Or ondansetron (ZOFRAN) injection 4 mgJump to med 4 mg, Intravenous, EVERY 6 HOURS PRN, na usea, vomiting, Administer over 2-5 Minutes, Starting Mon03/15/19 at 2048
This is Step 1 of nausea and vomiting management. If nausea not resolved in 15 minutes, go to Step 2 prochlorperazine (COMPAZINE). Irritant. For ordered IV doses 0.1-4 mg, give IV Push undiluted over 2-5 minutes.
Group 2: prochlorperazine (COMPAZINE) injection 5 mgJump to med 5 mg, Intravenous, EVERY 6 HOURS PRN, na usea, vomiting, Administer over 1-2 Minutes, Starting Mon03/15/19 at 2048
This is Step 2 of nausea and vomiting management. Give if nausea not resolved 1 5 minutes after giving ondansetron (ZOFR AN). If nausea not resolved in 15 minutes, go to Step 3 metoclopramide (REGLAN), if ordered. For ordered IV doses 0.1-10 mg, give IV Push undiluted. Each 5mg over 1 minute.
Or prochlorperazine (COMPAZINE) tablet 5 mgJump to med 5 mg, Oral, EVERY 6 HOURS PRN, vomiting, Starting Mon03/15/19 at 2048
This is Step 2 of nausea and vomiting management. Give if nausea not resolved 15 minutes after giving ondansetron (ZOFRAN). If nausea not resolved in 15 minutes, g o to Step 3 metoclopramide (REGLAN), if ordered.
Or prochlorperazine (COMPAZINE) Suppository 12.5 mgJump to med 12.5 mg, Rectal, EVERY 12 HOURS PRN, jari sea, vomiting, Starting Mon03/15/19 at 2048
This is Step 2 of nausea and vomiting management. Give if nausea not resolved 15 minutes after giving ondanse jonathan (ZOFRAN). If nausea not resolved in 15 minutes, go to Step 3 metoclopramide (REGLAN), if ordered.
Group 3: senna-docusate (SENOKOT-S/PERICOLACE) 8.6-50 MG per tablet 1 tabletJump to med 1 tablet, Oral, 2 TIMES DAILY PRN, const ipation, Starting Mon03/15/19 at 2048
If no bowel movement in 24 hours, increase to 2 tablets PO. Hold for loose stools. This is the first step of a three step const ipation treatment. Hold for loose stools.
Or senna-docusate (SENOKOT-S/PERICOLACE) 8.6-50 MG per tablet 2 tabletJump to med 2 tablet, Oral, 2 TIMES DAILY PRN, const ipation, Starting Mon03/15/19 at 204
Hold for loose stools. This is the first step of a three step constipation treatment. Hold for loose stools.
documented in this encounter Care Teams Search Engine Optimization Consultant Relationship Specialty Start Date End Date Lucero Stevenson PCP - General Pediatrics 10/11/11 04/22/19 MD Annetta Chastity Montero MD Dermatology 09/23/14 [address] [facility] [address] [place], [place] [address] Johnnie Alcocer MD Surgeon General Surgery 03/23/17 [address] [facility] [address] [place], [place] [id number] Lucero Stevenson Assigned PCP 06/17/18 11/09/19 MD Annetta [address] [phone] Danni Marcus, CHANDLER Personal Advocate & 01/09/1901/17 Liaison ([facility]) documented as of this encounter
--- OUTSIDE RECORDS SUMMARY | 2022-06-15 13:04 | XMS_ITS | Encounter Summary ---
:1945 Author Organization [place] Address [address] [place] [address] Care Team Providers Name Role Phone Lucero Stevenson MD Primary Care Provider [phone] Chastity oMntero MD Unavailable [phone] Johnnie Alcocer MD Unavailable Lucero Stevenson MD Unavailable [phone] Danni Marcus RN Unavailable Unavailable Reason for Visit Reason Onset Date Comments Orders 03/06/2019 4-wheeled Bariatric walker Encounter Details Date Type Department Care Team Description 03/06/2019 Telephone [facility] Lucero Stevenson rs (4-wheeled Clinic Yarelis Littlejohn MD Bariatric walker) [address] [facility] [address] [place] [address] [address] [place] [address] [place] [address] [phone] Social History Tobacco Use Types Packs/Day Years [...] Telephone Encounter - Danni Marcus RN - 03/08/2019 11:12 AM CDT Discussed with Dr. Stevenson-patient will need a Face-Face office visit to document medical necessity for this equipment. Patient notified and appointment scheduled on 03/20. Signed order is in the SB[facility] outbox in the station D nursing office. Ashli Marcus RN Telephone Encounter - Danni Marcus RN - 03/08/2019 9:39 AM CDT I spoke with Bibi, Physical therapist, and notified her of need to recheck blood pressure next week and to call us with this result. Bibi states we will need to place an order for the walker and then submit to a medical supply store. Patient has a bariatric front-wheeled walker now and feels the need for a Bariatric 4-wheeled walker. Order placed for the Bariatric 4-wheeled walker. I spoke with patient and she is trying to walk outside, and needs an extra wide walker with a seat width of at least 20 inches.and handlebars no less than 22 inches wide. [facility] doesn't carry this size walker. I called [facility] and they will be able to order a walker for patient with specific qualifications. [facility] needs order, insurance information, and chart notes to substantiate the need for thiswalker. Patient was seen on 02/06/19, can we addend the note, or will patient need a face to face visit to specifically document the need for this walker. Order placed at Dr. Stevenson's desk for signature, with insurance information. Fax this information to [phone]. Ashli Marcus RN Telephone Encounter - Danni Marcus RN - 03/07/2019 9:49 AM CDT Copied from phone message of 03/06/19-Reason for call: Other Patient called regarding (reason for call): call back Additional comments: Patient would like an order to get a walker. Would like to speak to a nurse. ?? Phone number to reach patient: Home number on file [phone] (home) ?? Best Time: any ?? Can we leave a detailed message on this number? YES Will check with home care if this is something they can facilitate for patient. Ashli Marcus RN Telephone Encounter - Danni Marcus RN - 03/07/2019 9:46 AM CDT LMTCB for Bibi, Physical therapist with [facility]. Ashli Marcus RN Telephone Encounter - Lucero Stevenson MD - 03/07/2019 8:19 AM CDT Noted. As long as she is asymptomatic we will continue to watch this for now. Please have them call with bp at next visit. Lucero Stevenson MD Telephone Encounter - Danni Marcus RN - 03/06/2019 4:25 PM CDT Received call from [facility] Physical therapist, Columba . This was the Physical therapist's first visit. On Monday-blood pressure was -127/86 Today initial blood pressure-155/99 -87 Repeat Blood pressure after walking and some exercising-166/112 Rested for 5 minutes-144/97. Patient was asymptomatic at office appointment today. Physical therapist will see patient again next Monday. Blood pressure update forwarded to provider for review. BP Readings from Last 3 Encounters: 02/20/19 (!) 155/88 02/06/19 128/76 01/22/19 138/85 Ashli Marcus RN documented in this encounter Plan of Treatment Upcoming Encounters Date Type Specialty Care Team Description 11/15/2022 Virtual Visit Pharm Haylie Gonzalez, [facility] [address] [place] [address] (Wo rk) 11/15/2022 Virtual Visit IM/Peds Yane Barraza MD [address] [facility] [facility] [address] [place], [place] [id number] (Wo rk) 03/03/2023 Virtual Visit Neurology Erlinda Barber MD [address] [facility] [address] [place], [place] [phone] (Wo rk) documented as of this encounter Visit Diagnoses Diagnosis Lymphedema of both lower extremities - P rimary Morbid obesity (H) Morbid obesity Left foot drop Other acquired deformity of ankle and fo ot documented in this encounter Care Teams Bioinformatics Associate Relationship Specialty Start Date End Date Lucero Stevenson PCP - General Pediatrics 10/11/11 04/22/19 MD Annetta Chastity Montero MD Dermatology 09/23/14 [address] [facility] 98 [place], [place] [address] Johnnie Alcocer MD Surgeon General Surgery 03/23/17 [address] [facility] [address] [place], [place] [address] Lucero Stevenson Assigned PCP 06/17/18 11/09/19 MD Annetta [facility] [address] [place] [address] Danni Marcus RN Personal Advocate & 01/09/1901/17 Liaison (PAL) documented as of this encounter
--- OUTSIDE RECORDS SUMMARY | 2022-06-15 13:04 | XMS_ITS | Encounter Summary ---
:1945 Author Organization [place] Address [address] [place] [address] Care Team Providers Name Role Phone Lucero Stevenson MD Primary Care Provider [phone] Chastity Montero MD Unavailable [phone] Johnnie Alcocer MD Unavailable Lucero Stevenson MD Unavailable [phone] Danni Marcus RN Unavailable Unavailable Kana Doshi Unavailable Encounter Details Date Type Department Care Team Description 03/20/2019 Travel Social History Tobacco Use Types Packs/Day [...] Pharm Haylie Gonzalez, [facility] [address] [place] [address] (Wo rk) 11/15/2022 Virtual Visit IM/Peds Yane Barraza MD [address] [facility] [place] [address] (Wo rk) 03/03/2023 Virtual Visit Neurology Erlinda Barber MD [address] [facility] [address] [place], [place] [phone] (Wo rk) documented as of this encounter Visit Diagnoses Not on filedocumented in this encounter Care Teams Regulatory Affairs Specialist Relationship Specialty Start Date End Date Lucero Stevenson PCP - General Pediatrics 10/11/11 04/22/19 MD Annetta Chastity Montero MD Dermatology 09/23/14 MD Martha [address] [facility] 98 [place], [place] [phone] Johnnie Alcocer MD Surgeon General Surgery 03/23/17 [address] [facility] [address] [place], [place] [phone] Lucero Stevenson Assigned PCP 06/17/18 11/09/19 MD TOÑO [address] [address] Danni Marcus, RN Personal Advocate & 01/09/1901/17 Liaison (PAL) Kana Doshi LSW Clinic Blower Feeder Dyed Raw Stock Primary Care - CC 03/19/19 documented as of this encounter
--- OUTSIDE RECORDS SUMMARY | 2022-06-15 13:04 | XMS_ITS | Encounter Summary ---
:1945 Author Organization [place] Address [address] [place] [address] Care Team Providers Name Role Phone Lucero Stevenson MD Primary Care Provider [phone] Chastity Montero MD Unavailable [phone] Johnnie Alcocer MD Unavailable Lucero Stevenson MD Unavailable [phone] Danni Marcus RN Unavailable Unavailable Kana DoshiW Unavailable Reason for Visit Reason Onset Date Comments Hospital F/U 03/17/2019 Pressure Injury Of L eft Ischium, Stage 3 (H), Pain, 910589, 0 ED / 1 IP Encounter Details Date Type Department Care Team Description 03/19/[address] [facility] Lucero Stevenson [facility] F/U (Pressure Clinic Yarelis Littlejohn MD Injury Of Left [address] [facility] Ischium, Stage 3 (H), [address] [facility] Pain, 382809, 0 ED / 1 [address] [place] [address] IP) [place] [address] [phone] Social History Tobacco Use Types Packs/Day Years [...] Telephone Encounter - Danni Marcus RN - 03/21/2019 2:05 PM CDT Patient was seen at office appointment yesterday. Please refer to that office appointment note. Ashli Marcus RN Telephone Encounter - Jolanta Reddy RN - 03/19/2019 4:37 PM CDT Patient has an appointment with [facility] tomorrow. Also see telephone message sent to another pool this afternoon reporting high blood pressures today. ED / Discharge Outreach Protocol Patient Contact Attempt # 1 Was call answered? No. Unable to leave message. Jolanta Reddy RN Message handled by Nurse Triage. Telephone Encounter - Gisele Reed - 03/19/2019 8:56 AM CDT Please contact patient for In-patient follow up. [phone] (mobile) Visit date: [id number] Diagnosis listed: Pressure Injury Of Left Ischium, Stage 3 (H), Pain Number of visits in past 12 months: 0 ED / 1 IP documented in this encounter Plan of Treatment Upcoming Encounters Date Type Specialty Care Team Description 11/15/2022 Virtual Visit Pharm Haylie Gonzalez, [facility] [address] [place] [address] (Wo rk) 11/15/2022 Virtual Visit IM/Peds Yane Barraza MD [address] [facility] [address] [place] [phone] (Wo rk) 03/03/2023 Virtual Visit Neurology Erlinda Barber MD [address] [facility] 295 [place], [place] [phone] (Wo rk) documented as of this encounter Visit Diagnoses Not on filedocumented in this encounter Care Teams Java Engineer Relationship Specialty Start Date End Date Lucero Stevenson PCP - General Pediatrics 10/11/11 04/22/19 MD Annetta Chastity Montero MD Dermatology 09/23/14 MD Martha [address] [facility] 98 [place], [place] [phone] Johnnie Alcocer MD Surgeon General Surgery 03/23/17 [address] [place], [place] [address] Lucero Stevenson Assigned PCP 06/17/18 11/09/19 MD Annetta [facility] [address] [place], [place] [phone] Danni Marcus, RN Personal Advocate & 01/09/1901/17 Liaison (PAL) Kana Doshi LSW Clinic Roll Line Operator Primary Care - CC 03/19/19 documented as of this encounter
--- OUTSIDE RECORDS SUMMARY | 2022-06-15 13:04 | XMS_ITS | Encounter Summary ---
:1945 Author Organization [place] Address [address] [place] [address] Care Team Providers Name Role Phone Lucero Stevenson MD Primary Care Provider [phone] Chastity Montero MD Unavailable [phone] Johnnie Alcocer MD Unavailable Lucero Stevenson MD Unavailable [phone] Danni Marcus RN Unavailable Unavailable Kana Doshi Unavailable Reason for Visit Reason Onset Date Comments Patient Request 03/06/2019 Encounter Details Date Type Department Care Team Description 03/06/2019 Telephone [facility] Stefanie Stevenson Patient Request Yarelis Littlejohn MD [address] [place] [address] [place] [address] [phone] Social History Tobacco Use Types Packs/Day Years [...] Encounter - Danni Marcus RN - 03/21/2019 8:46 AM CDT Please see second encounter regarding this from 03/06. Patient had face to face office appointment for this yesterday. Faxed order for 4-wheeled, bariatric walker, insurance information, and clinic notes to [facility] per patient request. Ashli Marcus RN Telephone Encounter - Kayla Richardson - 03/06/2019 4:20 PM CDT Reason for call: Other Patient called regarding (reason for call): call back Additional comments: Patient would like an order to get a walker. Would like to speak to a nurse. Phone number to reach patient: Home number on file [phone] (home) Best Time: any Can we leave a detailed message on this number? YES documented in this encounter Plan of Treatment Upcoming Encounters Date Type Specialty Care Team Description 11/15/2022 Virtual Visit Pharm D Haylie Cheung, [facility] [address] [facility] [place] [address] (Lena max) 11/15/2022 Virtual Visit IM/Yane Mathias MD [address] [facility] [place] [address] (Lena max) 03/03/2023 Virtual Visit Neurology Erlinda Barber MD [address] [facility] [address] [facility] 295 [place] [address] (Wo rk) documented as of this encounter Visit Diagnoses Not on filedocumented in this encounter Care Teams Message And Delivery Service Pricer Relationship Specialty Start Date End Date Lucero Stevenson PCP - General Pediatrics 10/11/11 04/22/19 MD Annetta Chastity Montero MD Dermatology 09/23/14 MD Martha [address] [facility] [address] [facility] 98 [place] [address] Johnnie Alcocer MD Surgeon General Surgery 03/23/17 [address] [facility] 300 [place], [place] [address] Lucero Stevenson Assigned PCP 06/17/18 11/09/19 MD Annetta [facility] [address] [place], [place] [phone] Danni Marcus, RN Personal Advocate & 01/09/1901/17 Liaison (PAL) Kana Doshi RACING CAR DRIVER Clinic Biomaterials Engineer Primary Care - CC 03/19/19 documented as of this encounter
--- OUTSIDE RECORDS SUMMARY | 2022-06-15 13:05 | XMS_ITS | Encounter Summary ---
:1945 Author Organization [place] Address [address] [place] [address] Care Team Providers Name Role Phone Lucero Stevenson MD Primary Care Provider [phone] Chastity Montero MD Unavailable [phone] Johnnie Alcocer MD Unavailable Lucero Stevenson MD Unavailable [phone] Danni Marcus RN Unavailable Unavailable Encounter Details Date Type Department Care Team Description 02/20/2019 Surgery [facility] Bernabe Crespo RIGHT CAT ARACT [facility] PeriOP MD Geovanni EXTRACTION WITH Services CATRON JOYCE INTRAOCULAR LENS [address], [address] [place] [address] [place], [place] [phone] (Wo rk) Surgery Details Date/Time Status Location OR Service Patient Case Case Traum a Class Class Type Case? 02/20/19 11:25 Posted [place] [address] [facility] AM Panel 1 Procedure LRB Anes Op Region Wound Class Commen ts RIGHT CATARACT EXTRACTION WITH Right MAC with Topical Eye I-Clean INTRAOCULAR LENS IMPLANTATION Surgeon Surgeon Role Service Panel Bernabe Crespo MD Primary Ophthalmology 1 documented in this encounter Social History Tobacco Use Types Packs/Day Years [...] 05/03/2021 organizations such as yazidism groups, unions, fraPict or athletic groups, or school groups? How [...] Sign Reading Time Taken Comments Blood Pressure 156/97 02/20/2019 10:15 AM CDT Pulse - - Temperature 36.6 ??C (97.9 ??F) 02/20/2019 10:15 AM CDT Respiratory Rate 16 02/20/2019 10:15 AM CDT Oxygen Saturation 99% 02/20/2019 10:15 AM CDT Inhaled Oxygen Concentration - - Weight 158.8 kg (350 lb) 02/20/2019 10:15 AM CDT Height - - Body Mass Index 54.82 02/06/2019 9:07 AM CDT documented in this encounter Discharge Instructions Discharge InstructionsBruna Murphy RN - 02/20/2019 12:36 PM CDT [facility] Discharge Instructions Anesthesia ([facility]) Adult Discharge Instructions For 24 hours after surgery 1. Get plenty of rest. Make arrangements to have a responsible adult stay with you for at least 24 hours after you leave the hospital. 2. Do not drive or use heavy equipment for 24 hours. 3. Do not drink alcohol for 24 hours. 4. Do not sign legal documents or make important decisions for 24 hours. 5. Avoid strenuous or risky activities. You may feel lightheaded. If so, sit for a few minutes before standing. Have someone help you get up. 6. Conscious sedation patients may resume a regular diet.. 7. Any questions of medical nature, call your physician. [facility] Cataract Surgery Discharge Instructions [facility] MD David Ang MD J. Hasan, MD C. Nichols, MD J. O'Neill, MD S. Schaefer, MD J. Stephens, MD ?? Start using drops when you arrive at home today ?? Ofloxacin (Watt top) - one drop in surgical eye 3 times per day until gone. ?? Prednisolone acetate 1.0% (pink or white top) - one drop in surgical eye 3 times per day until gone. ?? Ketorolac (Glover top) - one drop in surgical eye 3 times per day until gone. ?? Place shield over surgical eye at bedtime for 3 nights. ?? The eye will feel itchy, scratchy, and vision will be blurred, you may take Tylenol for the scratchy feeling if this is bothersome. ?? No eye rubbing or swimming for I week. ?? You may resume all prescription medications as directed by your primary doctor. ?? Call if increasing pain, progressively worsening vision or worsening redness of surgical eye. ?? On-call doctor can be reached at [phone]. documented in this encounter Medications at Time of Discharge Medication Sig Dispensed Refills Start Date End Date cetirizine (ZYRTEC) 10 Take 10 mg by mouth 0 MG tablet 2 times daily Multiple Take 1 tablet by 0 Vitamins-Minerals mouth 2 times daily (PRESERVISION/LUTEIN) CAPS acetaminophen (TYLENOL) Take 325 mg by mouth 0 03/17/2019 325 MG tablet daily as needed ascorbic acid (VITAMIN Take 500 mg by [...] unspecified iron deficiency anemia type furosemide (LASIX) 20 MG Take 10 mg by mouth 0 03/16/2019 tablet 2 times daily furosemide (LASIX) 40 MG TAKE 1 TABLET(40 MG) 90 tablet 0 0 02/25/2019 04/23/2019 tabletIndications: BY MOUTH DAILY Essential hypertension, benign hydrocortisone 2.5 % Daily as needed 180 g 3 03/27/2017 05/14/2019 ointmentIndications: Dermatitis ketorolac (ACULAR) 0.5 % Apply 1 drop to eye 1 03/20/2019 ophthalmic solution 3 times daily losartan (COZAAR) 50 MG TAKE 1 TABLET(50 MG) 90 tablet 0 04/23/2019 tabletIndications: BY MOUTH DAILY Essential hypertension, benign losartan (COZAAR) 50 MG Take 1 tablet (50 90 tablet 3 02/1903/15/2019 tabletIndications: mg) by mouth daily Essential hypertension, benign multivitamin w/minerals Take 1 tablet by 0 05/04/2021 (THERA-VIT-M) tablet mouth daily nystatin (MYCOSTATIN) Apply topically 0 8 09/11/2019 641480 UNIT/GM external daily as needed cream nystatin (NYSTOP) 305932 APPLY TOPICALLY TO 60 g 0 02/201909/11/2019 UNIT/GM external THE AFFECTED AREA powderIndications: BENEATH BILATERAL Pressure ulcer of BREAST/GROIN FOLDS ischium, left, stage IV TWICE DAILY UNTIL (H) RESOLVED. ofloxacin (OCUFLOX) 0.3 Apply 1 drop to eye 1 07/201803/20/2019 % ophthalmic solution 3 times daily prednisoLONE acetate Apply 1 drop to eye 1 201803/20/2019 (PRED FORTE) 1 % 3 times daily ophthalmic suspension warfarin (COUMADIN) 10 Take 1 tablet (10 90 tablet 1 201803/17/2019 MG tabletIndications: mg) by mouth daily shelter current use of or as directed by 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, INR Clinic 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 embolism WARFARIN SODIUM PO Take 13 mg by mouth 0 03/17/2019 On Michelle Burch WARFARIN SODIUM PO Take 10 mg by mouth 0 03/17/2019 daily documented as of this encounter Nursing Notes Bruna Murphy RN - 02/20/2019 12:52 PM CDT Post op instructions reviewed with pt and responsible adult. VSS, denies pain. D/C'd to home. documented in this encounter Miscellaneous Notes Op Note - Bernabe Crespo MD - 02/20/2019 12:22 PM CDT PREOPERATIVE DIAGNOSIS: Visually significant cataract, Right eye POSTOPERATIVE DIAGNOSIS: Same PROCEDURES: 1. Cataract extraction with intraocular lens implant Right eye. SURGEON: Bernabe Crespo M.D. INDICATIONS: The patient Charlette Brush presented to the eye clinic with decreased vision secondary to cataract in the Right eye. The risks, including, but not limited to infection, loss of vision, loss of eye, need for more surgery, and bleeding, along with the benefits, alternatives, expectations, and the procedure itself were discussed at length with the patient who wished to proceed with surgery.All questions were answered to the patient's satisfaction. The stated procedure is still clinically indicated. DESCRIPTION OF PROCEDURE: Prior to the procedure, appropriate cardiac and respiratory monitors were applied to the patient. Inthe pre-operative holding area, a drop of topical tetracaine followed by povidone iodine followed bylidocaine gel. The patient was brought to the operating room where a surgical pause was carried out to identify with all members of the surgical team the correct surgical site. With adequate anesthesia, the Right eye was prepped and draped in the usual sterile fashion. A lid speculum was placed, and the operating microscope was rotated into position. A paracentesis was created. Through this limbal paracentesis, the anterior chamber was filled with preservative-free lidocaine and epinephrine followedby viscoelastic. A temporal clear corneal incision was created at the limbus using a 2.5 mm blade. Acapsulorrhexis was initiated using a cystotome and was completed in continuous and circular fashion using the capsulorrhexis forceps. The lens nucleus was hydrodissected using balanced salt solution. The lens nucleus was rotated and removed using phacoemulsification in a stop and chop technique. Residual cortical material was removed using irrigation-aspiration. The capsular bag was reinflated to itsmaximal extent with cohesive viscoelastic. A 17.0 diopter [id number] was inserted into the capsular bag and noted to be well centered. The lens power selected was reviewed using the intraocular lens power measurements that were obtained preoperatively to confirm that the correct lens was selected for the desired post-operative refractive state. The residual viscoelastic was aspirated. The anterior chamberwas inflated with balanced salt solution and the wounds were hydrated and found to be self-sealing. The eye was palpated and found to be of normal physiologic pressure. The lid speculum was removed. One drop of postoperative anti-inflammatory and antibiotic medication was instilled in the eye and a clear shield placed over the eye. The patient tolerated the procedure well and there were no intraoperative complications. PLAN: The patient will be discharged to home and will follow up tomorrow in the eye clinic. EBL: None Complications: None Implant Name Type Inv. Item Serial No. Waiver Analyst Lot No. LRB No. Used EYE IMP IOL GABRIEL PCL TECNIS [id number] 17.0 Lens/Eye Implant EYE IMP IOL GABRIEL PCL TECNIS [id number] 17.0 [id number] [employer] OPT Right 1 documented in this encounter Plan of Treatment Upcoming Encounters Date Type Specialty Care Team Description 11/15/2022 Virtual Visit Pharm Haylie Gonzalez, [facility] [address] [facility] [place] [address] (Lena max) 11/15/2022 Virtual Visit IM/Peds Yane Barraza MD [address] [facility] [place] [address] (Lena max) 03/03/2023 Virtual Visit Neurology Erlinda Barber MD [address] [facility] [address] [place] [address] (Wo rk) documented as of this encounter Procedures Procedure Name Priority Date/Time Associated Diagnosis Comme nts PHACOEMULSIFICATION, 02/20/2019 11:35 AM NUCLEAR SCLER OSIS CATARACT, WITH CDT CATARACT INTRAOCULAR LENS IMPLANT documented in this encounter Visit Diagnoses Not on filedocumented in this encounter Administered Medications Inactive Administered Medications - up to 3 most recent administrations Medication Order MAR Action Action Date Dose Rate Site BSS 500 with EPINEPHrine Given 02/20/2019 12:08 PM CDT 500 mLs Eye Right 1:1000 (PF) 0.3mL PRN, Starting on Mon02/20/19 at 1208, Intra-procedure BSS ophthalmic solution Given 02/20/2019 12:08 PM CDT 15 mLs PRN, Starting on Mon02/20/19 at 1208, Intra-procedure cyclopentolate (CYCLOGYL) 1 % Given 02/20/2019 10:[address] op Eye Right ophthalmic solution 1 drop 1 drop, Ophthalmic, EVERY 5 MIN PRIOR TO SURGERY, Starting on Mon02/20/19 at 0949, For 3 doses, Instill into operative eye(s), starting upon admission., Pre-procedure Given 02/20/2019 10:18 AM CDT 1 drop Eye Right Given 02/20/2019 10:09 AM CDT 1 drop Eye Right lactated ringers infusion New Bag 02/20/2019 10:28 AM CDT 500 mLs 25 mL/hr at 25 mL/hr, Intravenous, CONTINUOUS, IF patient NOT on dialysis., Pre-procedure, Starting on Mon02/20/19 at 1000, Until Mon02/20/19 at 1515 lidocaine (PF) (XYLOCAINE) Given 02/20/2019 12:08 PM 1 mL Operative Site/Surgical 1 % injection CDT Site PRN, Starting on Mon02/20/19 at 1208, Intra-procedure lidocaine 1 % 0.1-1 mL 0.1-1 mL, Other, EVERY 1 HOUR PRN, mild pain with VAD insertion., Starting on Mon02/20/19 at 0948, Do NOT give if patient has a history o f allergy to any local anesthetic or any whitney product. MAX dose 1 mL subcu taneous OR intradermal in divided doses as needed for VAD insertion., Pre-proced ure ofloxacin (patient own, no charge) (OCUFLOX) Given 01/2019 12:19 PM CDT 1 drop 0.3 % ophthalmic drops PRN, Starting on Mon02/20/19 at 1219, Intra-procedure phenylephrine (MYDFRIN Given 02/20/2019 10:29 AM CDT 1 drop Eye Right /EDUARDA-SYNEPHRINE) 2.5 % ophthalmic solution 1 drop 1 drop, Ophthalmic, EVERY 5 MIN PRIOR TO SURGERY, Starting on Mon02/20/19 at 0949, For 3 doses, Instill into operative eye(s), starting upon admission., Pre-procedure Given 02/20/2019 10:18 AM CDT 1 drop Eye Right Given 02/20/2019 10:09 AM CDT 1 drop Eye Right povidone-iodine (BETADINE) 5 % Given 02/20/2019 10:10 AM CDT 1 d rop Eye Right ophthalmic solution 1 drop Ophthalmic, ONCE, On Mon02/20/19 at 1000, For 1 dose, To operative eye(s) pre-op. , Pre-procedure proparacaine (ALCAINE) 0.5 % Given 02/20/2019 10:09 AM CDT 1 phyllis p Eye Right ophthalmic solution 1 drop 1 drop, Ophthalmic, ONCE, On Mon02/20/19 at 1000, For 1 dose, Apply to operative eye(s)., Pre-procedure sod hyaluronate-sod chondroitinoitin-sod Given 02/20/2019 12:08 PM CDT 1 mL hyaluronate (DUOVISC) kit PRN, Starting on Mon02/20/19 at 1208, Intra-procedure tropicamide (MYDRIACYL) 1 % Given 02/20/2019 10:29 AM CDT 1 drop Eye Right ophthalmic solution 1 drop 1 drop, Ophthalmic, EVERY 5 MIN PRIOR TO SURGERY, Starting on Mon02/20/19 at 0949, For 3 doses, Instill into operative eye(s), Pre-procedure Given 02/20/2019 10:18 AM CDT 1 drop Eye Right Given 02/20/2019 10:09 AM CDT 1 drop Eye Right documented in this encounter Active and Recently Administered Medications Times are shown in CDT. Scheduled Medication Order 02/18/2019 02/19/2019 02/20/2019 cyclopentolate (CYCLOGYL) 1 % ophthalmic solution 1 drop (COMPLE CAMILA) 1009 (Given - Provider: Luiza Lopez RN)1018 (Given - Provider: Luiza Lopez RN)1029 (Given - Provider: Luiza Lopez RN) 1 drop, Ophthalmic, EVERY 5 MIN PRIOR TO SURGERY, Starting Mon02/20/19 at 0949, For 3 doses, Instill into operative eye(s), starting upon admission., Pre-procedure lidocaine (AKTEN) ophthalmic gel 0.5 mL 1000 (Canceled Entry - Provider: Orders Generic Provider - Comment: Automatically canceled at discontinue of medication order) 0.5 mL, Ophthalmic, ONCE, Mon02/20/19 at 1000, For 1 dose, Applied by MD pre- operative prior to surgery. Apply 0.5 mL to operative eye(s)., Pre-procedure phenylephrine (MYDFRIN /EDUARDA-SYNEPHRINE) 2.5 % ophthalmic solution 1 drop (COMPLETED) 1009 (Given - Provid er: Luiza Lopez RN)1018 (Given - Provider: Luiza Lopez RN)1029 (Given - Provider: Luiza Lopez RN) 1 drop, Ophthalmic, EVERY 5 MIN PRIOR TO SURGERY, Starting Mon02/20/19 at 0949, For 3 doses, Instill into operative eye(s), starting upon admission., Pre-procedure povidone-iodine (BETADINE) 5 % ophthalmic solution 1 drop (COMPL ETED) 1010 (Given - Provider: Luiza Lopez RN) Ophthalmic, ONCE, Mon02/20/19 at 1000, Fo r 1 dose, To operative eye(s) pre-op. , Pre-procedure proparacaine (ALCAINE) 0.5 % ophthalmic solution 1 drop 1000 (Canceled Entry - Provider: Orders Generic Provider - Comment: Automatically canceled at discontinue of medication order) 1 drop, Ophthalmic, ONCE, Mon02/20/19 at 1000, For 1 dose, Into operative eye(s) before dilating drops instilled., Pre-procedure proparacaine (ALCAINE) 0.5 % ophthalmic solution 1 drop (COMPLET ED) 1009 (Given - Provider: Luiza Lopez RN) 1 drop, Ophthalmic, ONCE, Mon02/20/19 at 1000, For 1 dose, Apply to operative eye(s)., Pre-procedure tropicamide (MYDRIACYL) 1 % ophthalmic solution 1 drop (COMPLETE D) 1009 (Given - Provider: Luiza Lopez RN)1018 (Given - Provider: Luiza Lopez RN)1029 (Given - Provider: Luiza Lopez RN) 1 drop, Ophthalmic, EVERY 5 MIN PRIOR TO SURGERY, Starting Mon02/20/19 at 0949, For 3 doses, Instill into operative eye(s), Pre-procedure Continuous Medication Order 02/18/2019 02/19/2019 02/20/2019 lactated ringers infusion 1028 ( New Bag - Provider: Luiza Lopez RN)1222 (Stopped - Provider: Dona Boateng APRN CRNA) at 25 mL/hr, Intravenous, CONTINUOUS, IF patient NOT on dialysis., Pre- procedure, Starting Mon02/20/19 at 1000, Until Mon02/20/19 at 1515 PRN Medication Order 02/18/2019 02/19/2019 02/20/2019 BSS 500 with EPINEPHrine 1:1000 (PF) 0.3mL (CANCELED) 1208 (Given - Provider: Bernabe Crespo MD) PRN, Starting Mon02/20/19 at 1208, Intra-procedure BSS ophthalmic solution (CANCELED) 1208 (Given - Provider: Bernabe Crespo MD) PRN, Starting Mon02/20/19 at 1208, Intra-procedure lidocaine (PF) (XYLOCAINE) 1 % injection (CANCELED) 1208 (Given - Provider: Bernabe Crespo MD) PRN, Starting Mon02/20/19 at 1208, Intra-procedure lidocaine 1 % 0.1-1 mL 0.1-1 mL, Other, EVERY 1 HOUR PRN, mild pain with VAD insertion., Starting Mon02/20/19 at 0948, Do NOT give if patient has a history of allergy to any local anesthetic or any whitney product. MAX dose 1 mL subcutaneous OR intradermal in divide d doses as needed for VAD insertion., Pre-procedure ofloxacin (patient own, no charge) (OCUFLOX) 0.3 % ophthalmi c drops (CANCELED) 1219 (Given - Provider: Bernabe lloyd MD) PRN, Starting Mon02/20/19 at 1219, Intra-procedure sod hyaluronate-sod chondroitinoitin-sod hyaluronate (DUOVISC) k it (CANCELED) 1208 (Given - Provider: Bernabe Crespo MD) PRN, Starting Mon02/20/19 at 1208, Intra-procedure documented in this encounter Care Teams Bait Painter Relationship Specialty Start Date End Date Lucero Stevenson PCP - General Pediatrics 10/11/11 04/22/19 MD Annetta Chastity Montero MD Dermatology 09/23/14 [address] [facility] [address] [place] [address] Johnnie Alcocer MD Surgeon General Surgery 03/23/17 [address] [facility] [address] [place] [address] Lucero Stevenson Assigned PCP 06/17/18 11/09/19 MD TOÑO [place] [address] [place] [address] Danni Marcus, CHANDLER Personal Advocate & 01/09/1901/17 Liaison (PAL) documented as of this encounter
--- OUTSIDE RECORDS SUMMARY | 2022-06-15 13:05 | XMS_ITS | Encounter Summary ---
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 Therapeutic today. Was instructed by surgeon no need to hold her warfarin. The patient was assessed for diet, medication, and activity level changes, missed or extra doses, bruising or bleeding, with no problem findings. Instructed Kana patient is to continue with maintenance dose at 10 mg warfarin daily and she can recheck INR in 2 weeks, Monday03/04/19. RN stated understanding and is in agreement with the plan. Bri Hernandez RN Anticoagulation Clinic [place] Clinical Outcomes Negatives: Major bleeding event, Thromboembolic event, Anticoagulation-related hospital admission, Anticoagulation-related ED visit, Anticoagulation-related fatality Comments: CHANDLER Roger with [facility] called: Patient having right eye cataract surgery today and needed INR checked. Therapeutic today. Was instructed by surgeon no need to hold her warfarin. The patient was assessed for diet, medication, and activity level changes, missed or extra doses, bruising or bleeding, with no problem findings. Instructed Kana patient is to continue with maintenance dose at 10 mg warfarin daily and she can recheck INR in 2 weeks, Monday03/04/19. CHANDLER stated understanding and is in agreement with the plan. Bri Hernandez RN Anticoagulation Clinic [place] OBJECTIVE INR Date Value Ref Range Status 02/20/2019 2.4 (A) 0.8 - 1.1 Final ASSESSMENT / PLAN INR assessment THER Recheck INR In: 2 WEEKS INR Location Homecare INR Anticoagulation Summary As of 02/20/2019 INR goal: 2.0-3.0 TTR: 79.8 % (3.4 y) INR used for dosin.4 (02/20/2019) Warfarin maintenance plan: 10 mg (10 mg x 1) every day Full warfarin instructions: 10 mg every day Weekly warfarin total: 70 mg No change documented: Bri Jimenez RN Plan last modified: Qing Guy RN (02/07/2019) Next INR check: 03/04/2019 Target end date: Indefinite Indications 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 embolism [Z86.711] senior living current use of 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 [Z79.01] Anticoagulation Episode Summary INR check location: Home Draw Preferred lab: Send INR reminders to: [facility]OSS Comments: 7.5mg, 3mg, 6mg & 10mg tabs - devaughn dose / [facility] qod - Kana [phone] / APPT CARD ONLY Anticoagulation Care Providers Provider Role Specialty Phone number Lucero Stevenson MD Internal Medicine [phone] See the Encounter Report to view Anticoagulation Flowsheet and Dosing Calendar (Go to Encounters tabin chart review, and find the Anticoagulation Therapy Visit) Bri Jimenez RN documented in this encounter Plan of Treatment Upcoming Encounters Date Type Specialty Care Team Description 11/15/2022 Virtual Visit Pharm Haylie Gonzalez, [facility] [address] [facility] [place] [address] (Lena max) 11/15/2022 Virtual [place] [address] [place] [address] [place] [address] (Lena max) 03/03/2023 Virtual Visit Neurology Erlinda Barber MD [address] [facility] [address] [place] [address] (Lena max) documented as of this encounter Procedures Procedure Name Priority Date/Time Associated Diagnosis Comme nts INR Routine 02/20/2019 Results for thi s procedure are in the resu lts section. documented in this encounter Results (ABNORMAL) INR (02/20/2019) P athologist Signature INR 2.4 (A) 0.8 - 1.1 EXTERNAL LAB Specimen (Source) Anatomical Location Collection Method / Collectio n Time Received Time / Laterality Volume Blood specimen 02/20/2019 (specimen) Resulting Agency Comment [facility] Lucero Stevenson MD LAB - BLOOD ORDERABLES Performing Organization Address City/State/ZIP Code Phon e Number EXTERNAL LAB EXTERNAL LAB External Lab documented in this encounter Visit Diagnoses Diagnosis 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 embolism senior living current use of anticoagulant t herapy documented in this encounter Care Teams Tin Can Laborer Relationship Specialty Start Date End Date Lucero Stevenson PCP - General Pediatrics 10/11/11 04/22/19 MD Annetta Chastity Montero MD Dermatology 09/23/[address] [place] [address] [address] [place], [place] [id number] Johnnie Alcocer MD Surgeon General Surgery 03/23/17 [address] [facility] [address] [place] [address] Lucero Stevenson Assigned PCP 06/17/18 11/09/19 MD [place] [place] [id number] Danni Marcus, CHANDLER Personal Advocate & 01/09/1901/17 Liaison (PAL) documented as of this encounter
--- OUTSIDE RECORDS SUMMARY | 2022-06-15 13:05 | XMS_ITS | Encounter Summary ---
:1945 Author Organization [place] Address [address] [place] [address] Care Team Providers Name Role Phone Lucero Stevenson MD Primary Care Provider Chastity Montero MD Unavailable [phone] Johnnie Alcocer MD Unavailable Lucero Stevenson MD Unavailable [phone] Danni Marcus RN Unavailable Unavailable Reason for Visit Reason Comments Erroneous encounter-disregard Encounter Details Date Type Department Care Team Description 02/07/2019 Documentation Only [facility] Emily Stevenson [facility] Yarelis Littlejohn, encounter-disregard [address] [facility] [address] [facility] [place] [address] [place], [place] [phone] [id number] Social History Tobacco Use Types Packs/Day Years [...] More than 4 times per year 05/03/2021 baptism services? Do you belong to any clubs [...] Gonzalez, [facility] [address] [facility] [place] [address] (Wo rk) 11/15/2022 Virtual Visit IM/Yane Mathias MD [address] [facility] [address] (Wo rk) 03/03/2023 Virtual Visit Neurology Erlinda Barber MD [address] [place] [address] (Wo rk) documented as of this encounter Visit Diagnoses Diagnosis ERRONEOUS ENCOUNTER--DISREGARD - Primary documented in this encounter Care Teams Consulting Psychologist Relationship Specialty Start Date End Date Lucero Stevenson PCP - General Pediatrics 10/11/11 04/22/19 MD Annetta Chastity Montero MD Dermatology 09/23/14 [address] [place] [address] Johnnie Alcocer MD Surgeon General Surgery 03/23/[address] [place] [address] Lucero Stevenson Assigned PCP 06/17/18 11/09/19 MD TOÑO Littlejohn [place] [address] [place] [address] Danni Marcus RN Personal Advocate & 01/09/1901/17 Liaison (KODY) documented as of this encounter
--- OUTSIDE RECORDS SUMMARY | 2022-06-15 13:05 | XMS_ITS | Encounter Summary ---
:1945 Author Organization [place] Address [address] [place] [address] Care Team Providers Name Role Phone Lucero Stevenson MD Primary Care Provider Chastity Montero MD Unavailable [phone] Johnnie Alcocer MD Unavailable Lucero Stevenson MD Unavailable [phone] Danni Marcus RN Unavailable Unavailable Encounter Details Date Type Department Care Team Description 02/18/2019 Anticoagulation [facility] Graham Ruben pompa history of pulmonary embolism; Therapy Visit Clinic Yarelis Littlejohn, 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 card tender current use of ant icoagulant therapy [address] Day MD [facility] [address] [place] [address] [place], [place] [phone] Social History Tobacco Use Types Packs/Day Years [...] documented as of this encounter Progress Notes Krystyna Sharp, CHANDLER - 02/18/2019 3:10 PM CDT ANTICOAGULATION FOLLOW-UP CLINIC VISIT Patient Name: Charlette Brush Date: 02/18/2019 Contact Type: Telephone Call received from Kana from [facility] at [phone]. Pt has an upcoming R eye cataract surgery on 02/20(does not need to hold warfarin - as per surgeon). They were suppose to check her INR tomorrow,but the HC nurse is at home now & will be seeing pt on Mon morning before surgery. Did INR today(instead of tomorrow) & it was 2.6. So, advised to continue her maintenance dose(10 mg today & tomorrow). She will recheck her INR on Mon morning & will call in the result to [facility] INR at [phone] because of there is no INR clinic in [place] on Mon & I will be working in the [place] thatday. Routing to both & INR pools as a FYI to the nurses. SUBJECTIVE: OBJECTIVE INR Date Value Ref Range Status 02/18/2019 2.6 (A) 0.9 - 1.1 Final Comment: [facility] ASSESSMENT / PLAN INR assessment THER Recheck INR In: 2 DAYS INR Location Homecare INR Anticoagulation Summary As of 02/18/2019 INR goal: 2.0-3.0 TTR: 79.8 % (3.4 y) INR used for dosin.6 (02/18/2019) Warfarin maintenance plan: 10 mg (10 mg x 1) every day Full warfarin instructions: 10 mg every day Weekly warfarin total: 70 mg No change documented: Krystyna Sharp, RN Plan last modified: Qing Guy RN (02/07/2019) Next INR check: 02/20/2019 Target end date: Indefinite Indications 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 embolism [Z86.711] 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 card tender current use of 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 [Z79.01] Anticoagulation Episode Summary INR check location: Home Draw Preferred lab: Send INR reminders to: ZHEN SANTOYO Comments: 7.5mg, 3mg, 6mg & 10mg tabs - devaughn dose / [facility] qod - Kana [phone] / APPT CARD ONLY Anticoagulation Care Providers Provider Role Specialty Phone number Lucero Stevenson MD Internal Medicine [phone] See the Encounter Report to view Anticoagulation Flowsheet and Dosing Calendar (Go to Encounters tabin chart review, and find the Anticoagulation Therapy Visit) Krystyna Sharp RN documented in this encounter Plan of Treatment Upcoming Encounters Date Type Specialty Care Team Description 11/15/2022 Virtual Visit Pharm Haylie Gonzalez, [facility] [address] [place] [address] (Wo rk) 11/15/2022 Virtual Visit [place] [address] [place] [address] [address] [place] [id number] (Wo rk) 03/03/2023 Virtual Visit Neurology Erlinda Barber MD [address] [facility] [address] [place] [address] (Wo rk) documented as of this encounter Procedures Procedure Name Priority Date/Time Associated Diagnosis Comme nts INR Routine 02/18/2019 Results for thi s procedure are in the resu lts section. documented in this encounter Results (ABNORMAL) INR (02/18/2019) P athologist Signature INR 2.6 (A) 0.9 - 1.1 EXTERNAL LAB Comment: Interm HC Specimen (Source) Anatomical Location Collection Method / Collectio n Time Received Time / Laterality Volume Blood specimen 02/18/2019 (specimen) Resulting Agency Comment Interm Lucero Stevenson MD LAB - BLOOD ORDERABLES Performing Organization Address City/State/ZIP Code Phon e Number EXTERNAL LAB EXTERNAL LAB External Lab documented in this encounter Visit Diagnoses Diagnosis 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 embolism care home current use of anticoagulant t herapy documented in this encounter Care Teams Dancing Instructor Relationship Specialty Start Date End Date Lucero Stevenson PCP - General Pediatrics 10/11/11 04/22/19 MD Annetta Chastity Montero MD Dermatology 09/23/14 [address] [facility] [address] [place] [address] Johnnie Alcocer MD Surgeon General Surgery 03/23/[address] [place] [address] Lucero Stevenson Assigned PCP 06/17/18 11/09/19 MD TOÑO [place] [address] [place] [address] Danni Marcus, CHANDLER Personal Advocate & 01/09/1901/17 Liaison (PAL) documented as of this encounter
--- OUTSIDE RECORDS SUMMARY | 2022-06-15 13:05 | XMS_ITS | Encounter Summary ---
:1945 Author Organization [place] Address [address] [place] [address] Care Team Providers Name Role Phone Lucero Stevenson MD Primary Care Provider [phone] Chastity Montero MD Unavailable [phone] Johnnie Alcocer MD Unavailable Lucero Stevenson MD Unavailable [phone] Danni Marcus RN Unavailable Unavailable Encounter Details Date Type Department Care Team Description 02/20/2019 Travel Social History Tobacco Use Types Packs/Day [...] Haylie Gonzalez, [facility] [address] [place] [address] (Wo rk) 11/15/2022 Virtual Visit IM/Peds Yane Barraza MD [address] [facility] [address] [place] [phone] (Wo rk) 03/03/2023 Virtual Visit Neurology Erlinda Barber MD [address] [facility] [address] [place], [place] [phone] (Wo rk) documented as of this encounter Visit Diagnoses Not on filedocumented in this encounter Care Teams Optical Lens Manufacturing Tech Relationship Specialty Start Date End Date Lucero Stevenson PCP - General Pediatrics 10/11/11 04/22/19 MD Annetta Chastity Montero MD Dermatology 09/23/14 [address] [facility] [address] [place], [place] [phone] Johnnie Alcocer MD Surgeon General Surgery 03/23/[address] [place], [place] [address] Lucero Stevenson Assigned PCP 06/17/18 11/09/19 MD TOÑO Littlejohn [place] [address] [place], [place] [phone] Danni Marcus, CHANDLER Personal Advocate & 01/09/1901/17 Liaison (PAL) documented as of this encounter
--- OUTSIDE RECORDS SUMMARY | 2022-06-15 13:05 | XMS_ITS | Encounter Summary ---
:1945 Author Organization [place] Address [address] [facility] [place] [address] Care Team Providers Name Role Phone Lucero Stevenson MD Primary Care Provider Chastity Montero MD Unavailable [phone] Johnnie Alcocer MD Unavailable Lucero Stevenson MD Unavailable [phone] Danni Marcus RN Unavailable Unavailable Encounter Details Date Type Department Care Team Description 02/20/2019 Hospital Encounter [facility] Bernabe Crespo Preop/Phase MD Geovanni II [facility] [address] [facility] [address] [place] [address] [address] [place] [address] (Wo rk) Social History Tobacco Use Types [...] Sign Reading Time Taken Comments Blood Pressure 155/88 02/20/2019 12:41 PM CDT Pulse - - Temperature 36.6 ??C (97.9 ??F) 02/20/2019 10:15 AM CDT Respiratory Rate 16 02/20/2019 12:41 PM CDT Oxygen Saturation 98% 02/20/2019 12:41 PM CDT Inhaled Oxygen Concentration - - Weight 158.8 kg (350 lb) 02/20/2019 10:15 AM CDT Height - - Body Mass Index 54.82 02/06/2019 9:07 AM CDT documented in this encounter Discharge Instructions Discharge InstructionsBruna Murphy RN - 02/20/2019 12:36 PM CDT [facility] Discharge Instructions [...] questions of medical nature, call your physician. [facility] Cataract Surgery Discharge Instructions [facility] MD David Ang [...] ?? On-call doctor can be reached at [phone]. documented in this encounter Medications at Time [...] nystatin (MYCOSTATIN) Apply topically 0 8 09/11/2019 682186 UNIT/GM external daily as needed cream nystatin (NYSTOP) 724480 APPLY TOPICALLY TO 60 g 0 02/201909/11/2019 [...] 201803/17/2019 MG tabletIndications: mg) by mouth daily [facility] current use of or as directed by 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, INR Clinic 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 embolism WARFARIN SODIUM PO Take 13 mg by mouth 0 03/17/2019 On Mon, Thur WARFARIN SODIUM PO Take 10 mg by [...] Implant Name Type Inv. Item Serial No. Solar Project Coordination Specialist Lot No. LRB No. Used EYE IMP IOL GABRIEL PCL TECNIS [id number] 17.0 Lens/Eye Implant EYE IMP IOL GABRIEL PCL TECNIS [id number] 17.0 [id number] [employer] Right 1 documented in this encounter Plan of Treatment Upcoming Encounters Date Type Specialty Care Team Description 11/15/2022 Virtual Visit Pharm Haylie Gonzalez, [facility] [address] [facility] [place] [phone] (Lena max) 11/15/2022 Virtual Visit IM/Peds Yane Barraza MD [address] [facility] [place] [phone] (Lena max) 03/03/2023 Virtual Visit Neurology Erlinda Barber MD [address] [facility] [address] [place], [place] [address] (Lena max) documented as of this encounter Procedures Procedure Name Priority Date/Time Associated Diagnosis Comme nts PHACOEMULSIFICATION, 02/20/2019 11:35 AM NUCLEAR SCLER OSIS CATARACT, WITH CDT CATARACT INTRAOCULAR LENS IMPLANT documented in this encounter Visit Diagnoses Not on filedocumented in this encounter Administered Medications Inactive Administered Medications - up to 3 most recent administrations Medication Order MAR Action Action Date Dose Rate Site cyclopentolate (CYCLOGYL) 1 % Given 02/20/2019 10:29 AM 1 drop Eye Right ophthalmic solution 1 drop CDT 1 drop, Ophthalmic, EVERY 5 MIN PRIOR [...] at 1000, Until Mon02/20/19 at 1515 lidocaine 1 % 0.1-1 mL 0.1-1 mL, Other, EVERY 1 HOUR PRN, mild pain with VAD insertion., Starting on Mon02/20/19 at 0948, Do NOT give if patient has a history o f allergy to any local anesthetic or any whitney product. MAX dose 1 mL subcu taneous OR intradermal in divided doses as needed for VAD insertion., Pre-proced ure phenylephrine (MYDFRIN Given 02/20/2019 10:29 AM CDT [...] operative eye(s)., Pre-procedure tropicamide (MYDRIACYL) 1 % Given 02/20/2019 10:29 [...] (COMPLE CAMILA) 1009 (Given - Provider: Luiza Lpoez RN)1018 (Given - Provider: Luiza Lopez RN)1029 [...] er: Luiza Lopez RN)1018 (Given - Provider: uLiza Lopez RN)1029 (Given - Provider: Luiza Lopez [...] Luiza Lopez RN)1018 (Given - Provider: Luiza Lopez, RN)1029 (Given - Provider: Luiza Lopez RN) 1 drop, Ophthalmic, EVERY 5 MIN PRIOR TO SURGERY, Starting Mon02/20/19 at 0949, For 3 doses, Instill into operative eye(s), Pre-procedure Continuous Medication Order 02/18/2019 02/19/2019 02/20/2019 lactated ringers infusion 1028 ( New Bag - Provider: Luiza Lopez RN)1222 (Stopped - Provider: Dona Boateng, [facility]) at 25 mL/hr, Intravenous, CONTINUOUS, IF patient [...] Intra-procedure documented in this encounter Care Teams Therapist'S Assistant Relationship Specialty Start Date End Date Lucero Stevenson PCP - General Pediatrics 10/11/11 04/22/19 MD Annetta Chastity Montero MD Dermatology 09/23/14 [address] [facility] 98 [place], [place] [address] Johnnie Alcocer MD Surgeon General Surgery 03/23/17 [address] [place] [address] Lucero Stevenson Assigned PCP 06/17/18 11/09/19 MD Annetta [address] [phone] Danni Marcus, RN Personal Advocate & 01/09/1901/17 Liaison (PAL) documented as of this encounter
--- OUTSIDE RECORDS SUMMARY | 2022-06-15 13:05 | XMS_ITS | Encounter Summary ---
:1945 Author Organization [place] Address [address] [place] [address] Care Team Providers Name Role Phone Lucero Stevenson MD Primary Care Provider [phone] Chastity Montero MD Unavailable [phone] Johnnie Alcocer MD Unavailable Lucero Stevenson MD Unavailable [phone] Danni Marcus RN Unavailable Unavailable Encounter Details Date Type Department Care Team Description 02/07/2019 Travel Social History Tobacco Use Types Packs/Day [...] [facility] [address] [facility] [place] [address] (Wo rk) 11/15/2022 Virtual Visit IM/Peds Yane Barraza MD [address] [facility] [address] [place] [phone] (Wo rk) 03/03/2023 Virtual Visit Neurology Erlinda Barber MD [address] [facility] [address] [place], [place] [phone] (Wo rk) documented as of this encounter Visit Diagnoses Not on filedocumented in this encounter Care Teams Salvage Clerk Relationship Specialty Start Date End Date Lucero Stevenson PCP - General Pediatrics 10/11/11 04/22/19 MD Annetta Chastity Mnotero MD Dermatology 09/23/14 [address] [facility] [address] [place], [place] [phone] Johnnie Alcocer MD Surgeon General Surgery 03/23/[address] [place], [place] [address] Lucero Stevenson Assigned PCP 06/17/18 11/09/19 MD TOÑO Littlejohn [place] [address] [place], [place] [phone] Danni Marcus, CHANDLER Personal Advocate & 01/09/1901/17 Liaison (PAL) documented as of this encounter
--- OUTSIDE RECORDS SUMMARY | 2022-06-15 13:05 | XMS_ITS | Encounter Summary ---
:1945 Author Organization [place] Address [address] [place] [address] Care Team Providers Name Role Phone Lucero Stevenson MD Primary Care Provider [phone] Chastity Montero MD Unavailable [phone] Johnnie Alcocer MD Unavailable Lucero Stevenson MD Unavailable [phone] Danni Marcus RN Unavailable Unavailable Reason for Visit Reason Onset Date Comments reporting weight 02/13/2019 Encounter Details Date Type Department Care Team Description 02/13/2019 Telephone [facility] Stefanie Stevenson reporting weight Yarelis Littlejohn MD [address] [place] [address] Yarelis [place] [address] [phone] Social History Tobacco Use Types Packs/Day Years [...] Telephone Encounter - Jolanta Reddy RN - 02/14/2019 4:41 PM CDT Please review BMP results. The lab is back. Jolanta Reddy RN Message handled by Nurse Triage. Telephone Encounter - Jolanta Reddy RN - 02/14/2019 8:53 AM CDT Call to patient-advised. Patient in agreement. Jolanta Reddy RN Message handled by Nurse Triage. Telephone Encounter - Lucero Stevenson MD - 02/13/2019 4:50 PM CDT Weight is much better after the lasix. I'll let her know the bmp results when they return. Lucero Stevenson MD Telephone Encounter - Jolanta Reddy RN - 02/13/2019 2:13 PM CDT Received VM from Michelle with [facility] reporting weight today: 338.1 lbs, dropped off blood for BMP today also. Weight was 350 lbs 9.6 oz at the appointment on 02/06. (Initial visit was to happen Monday, but this was rescheduled for today. Next appointment for weight check in Monday.) She can be reached at [phone]. Jolanta Reddy RN Message handled by Nurse Triage. documented in this encounter Plan of Treatment Upcoming Encounters Date Type Specialty Care Team Description 11/15/2022 Virtual Visit Pharm D Haylie Cheung, [facility] [address] [place] [address] (Wo rk) 11/15/2022 Virtual Visit IM/Peds Yane Barraza MD [address] [facility] [place] [address] (Wo rk) 03/03/2023 Virtual Visit Neurology Erlinda Barber MD 420 [facility] [address] [place], [place] [phone] (Wo rk) documented as of this encounter Visit Diagnoses Not on filedocumented in this encounter Care Teams Box Office Attendant Relationship Specialty Start Date End Date Lucero Stevenson PCP - General Pediatrics 10/11/11 04/22/19 MD Annetta Chastity Montero MD Dermatology 09/23/14 [address] [facility] [address] [place], [place] [phone] Johnnie Alcocer MD Surgeon General Surgery 03/23/[address] [place], [place] [phone] Lucero Stevenson Assigned PCP 06/17/18 11/09/19 MD Annetta [facility] [address] [place], [place] [phone] Danni Marcus, CHANDLER Personal Advocate & 01/09/1901/17 Liaison (PAL) documented as of this encounter
--- OUTSIDE RECORDS SUMMARY | 2022-06-15 13:05 | XMS_ITS | Encounter Summary ---
:1945 Author Organization [place] Address [address] [place] [address] Care Team Providers Name Role Phone Lucero Stevenson MD Primary Care Provider Chastity Montero MD Unavailable [phone] Johnnie Alcocer MD Unavailable Lucero Stevenson MD Unavailable [phone] Danni Marcus RN Unavailable Unavailable Encounter Details Date Type Department Care Team Description 02/07/[address] [facility] Graham Ruben pompa history of pulmonary embolism; Therapy Visit Clinic Yarelis Littlejohn, FDC current use of ant icoagulant therapy [address] Day MD [facility] [address] [place] [address] [place], [place] [phone] Social History Tobacco Use Types Packs/Day Years [...] encounter Progress Notes Qing Guy RN - 02/07/2019 11:38 AM CDT ANTICOAGULATION FOLLOW-UP Patient Name: Charlette Brush Date: 02/07/2019 Contact Type: Telephone Call received from [facility] nurse, with INR result. Follow up instructions given over the phone to Home Care nurse for warfarin management. SUBJECTIVE: Patient Findings Positives: Upcoming invasive procedure Comments: Right eye cataract surgery on 02/20/19. Does not need to hold warfarin. Per Homecare nurse: No bleeding or concerning bruises No medication changes No change in diet or eating habits Clinical Outcomes Comments: Right eye cataract surgery on 02/20/19. Does not need to hold warfarin. Per Homecare nurse: No bleeding or concerning bruises No medication changes No change in diet or eating habits OBJECTIVE INR Date Value Ref Range Status 02/07/2019 2.7 (A) 0.9 - 1.1 Final ASSESSMENT / PLAN INR assessment THER Recheck INR In: 10 DAYS INR Location Homecare INR Anticoagulation Summary As of 02/07/2019 INR goal: 2.0-3.0 TTR: 79.6 % (3.4 y) INR used for dosin.7 (02/07/2019) Warfarin maintenance plan: 10 mg (10 mg x 1) every day Full warfarin instructions: 10 mg every day Weekly warfarin total: 70 mg Plan last modified: Qing Guy, RN (02/07/2019) Next INR check: 02/19/2019 Target end date: Indefinite Indications 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 embolism [Z86.711] FDC current use of 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 [Z79.01] Anticoagulation Episode Summary INR check location: Home Draw Preferred lab: Send INR reminders to: ZHEN [facility] Comments: 7.5mg, 3mg, 6mg & 10mg tabs - devaughn dose / [facility] qod - Kana [phone] / APPT CARD ONLY Anticoagulation Care Providers Provider Role Specialty Phone number Lucero Stevenson MD Internal Medicine [phone] See the Encounter Report to view Anticoagulation Flowsheet and Dosing Calendar (Go to Encounters tabin chart review, and find the Anticoagulation Therapy Visit) INR is therapeutic today. She took 10 mg daily for the past week which was a decrease of 7.9%. Patient will continue same dose and that is the new maintenance dose. Follow up in 12 days or sooner if needed. Qing Guy RN documented in this encounter Plan of Treatment Upcoming Encounters Date Type Specialty Care Team Description 11/15/2022 Virtual Visit Pharm D Haylie Cheung, [facility] [address] [facility] [address] (Lena max) 11/15/2022 Virtual Visit IM/Peds Yane Barraza MD [address] [facility] [place] [address] (Lena max) 03/03/2023 Virtual Visit Neurology Erlinda Barber MD 420 [facility] 295 [place] [address] (Lena max) documented as of this encounter Procedures Procedure Name Priority Date/Time Associated Diagnosis Comme nts INR Routine 02/07/2019 11:40 AM Results for this CDT procedure are i n the results section . documented in this encounter Results (ABNORMAL) INR (02/07/2019 11:40 AM CDT) P athologist Signature INR 2.7 (A) 0.9 - 1.1 EXTERNAL LAB Specimen (Source) Anatomical Collection Method Collection Time Re ceived Time Location / / Volume Laterality Blood specimen 02/07/2019 11:40 (specimen) AM CDT Resulting Agency Comment [facility] Lucero Stevenson MD LAB - BLOOD ORDERABLES Performing Organization Address City/State/ZIP Code Phon e Number EXTERNAL LAB EXTERNAL LAB External Lab documented in this encounter Visit Diagnoses Diagnosis 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 embolism FDC current use of anticoagulant t herapy documented in this encounter Care Teams County Assessor Relationship Specialty Start Date End Date Lucero Stevenson PCP - General Pediatrics 10/11/11 04/22/19 MD Annetta Chastity Montero MD Dermatology 09/23/14 [address] [facility] 98 [place], [place] [phone] Johnnie Alcocer MD Surgeon General Surgery 03/23/17 [address] [facility] [address] [place], [place] [phone] Lucero Stevenson Assigned PCP 06/17/18 11/09/19 MD Annetta [facility] [address] [place] [address] Danni Marcus, CHANDLER Personal Advocate & 01/09/1901/17 Liaison (PAL) documented as of this encounter
--- OUTSIDE RECORDS SUMMARY | 2022-06-15 13:05 | XMS_ITS | Encounter Summary ---
:1945 Author Organization [place] Address [address] [place] [address] Care Team Providers Name Role Phone Lucero Stevenson MD Primary Care Provider [phone] Chastity Montero MD Unavailable [phone] Johnnie Alcocer MD Unavailable Lucero Stevenson MD Unavailable [phone] Danni Marcus RN Unavailable Unavailable Reason for Visit Reason Onset Date Comments Refill Request 02/14/2019 losartan (COZAAR) 50 MG tablet Refill Request 02/14/2019 WARFARIN SODIUM PO Encounter Details Date Type Department Care Team Description 02/14/2019 Refill [facility] Lucero Stevensoni ll Request Clinic [place] Littlejohn MD (losartan (COZAAR) 50 0209 [facility] Y MG tablet); Refill [facility] [address] [place] [address] RD Request (WARFARIN [address] [place] [address] SODIUM PO) [place] [address] [phone] Social History Tobacco Use Types Packs/Day Years [...] 05/03/2021 organizations such as confucianist groups, unions, fraWorkingPoint or athletic groups, or school groups? How [...] this encounter Miscellaneous Notes Telephone Encounter - Elizabeth Vasquez RN - 02/19/2019 10:53 AM CDT Cozaar 50 mg tablet Routing refill request to provider for review/approval because: Labs out of range: CR Elizabeth Vasquez RN Telephone Encounter - Qing Guy RN - 02/19/2019 9:06 AM CDT Warfarin refilled per nurse protocol standing orders. Qing Guy RN [facility] Telephone Encounter - Latia Myers - 02/14/2019 12:35 PM CDT Requested Prescriptions Pending Prescriptions Disp Refills ??? losartan (COZAAR) 50 MG tablet [Pharmacy Med Name: LOSARTAN 50MG TABLETS] 30 tablet 0 Sig: TAKE 1 TABLET BY MOUTH EVERY DAY Last Written Prescription Date: 05/30/2018 Last Fill Quantity: 90 tablet, # refills: 3 Last office visit: 02/06/2019 with prescribing provider: Lucero Stevenson MD Future Office Visit: Next 5 appointments (look out 90 days) Apr 23, 2019 9:20 AM CDT Office visit with Lucero Stevenson MD, Ea Rn Pal 5a, EA EXAM ROOM 49 [facility] [place] ([facility]) [address] [facility] [address] [place] [address] Angiotensin-II Receptors Failed - 02/14/2019 12:21 PM Failed - Normal serum creatinine on file in past 12 months Recent Labs Lab Test 02/13/19 1412 05/22/18 1135 CR 0.49* < > -- CREAT -- -- 0.6 < > = values in this interval not displayed. Passed - Blood pressure under 140/90 in past 12 months BP Readings from Last 3 Encounters: 02/06/19 128/76 01/22/19 138/85 01/16/19 134/82 Passed - Recent (12 mo) or future (30 days) visit within the authorizing provider's specialty Patient had office visit in the last 12 months or has a visit in the next 30 days with authorizing provider or within the authorizing provider's specialty. See Patient Info tab in inbasket, or Choose Columns in Meds & Orders section of the refill encounter. Passed - Medication is active on med list Passed - Patient is age 18 or older Passed - No active on record Passed - Normal serum potassium on file in past 12 months Recent Labs Lab Test 02/13/19 1412 POTASSIUM 4.6 Passed - No positive test in past 12 months Is the following Losartan a duplicate from above? losartan (COZAAR) 50 MG tablet [Pharmacy Med Name: LOSARTAN 50MG TABLETS] 30 tablet 0 Sig: TAKE 1 TABLET BY MOUTH EVERY DAY. Last Written Prescription Date: 05/30/2018 Last Fill Quantity: 90 tablet, # refills: 3 Last office visit: 02/06/2019 with prescribing provider: Lucero Stevenson MD Future Office Visit: Next 5 appointments (look out 90 days) Apr 23, 2019 9:20 AM CDT Office visit with Lucero Stevenson MD, Kyle martínez EA EXAM ROOM 49 [facility] [place] ([facility]) [address] [place] [phone] Angiotensin-II Receptors Failed - 02/14/2019 12:21 PM Failed - Normal serum creatinine on file in past 12 months Recent Labs Lab Test 02/13/19 1412 05/22/18 1135 CR 0.49* < > -- CREAT -- -- 0.6 < > = values in this interval not displayed. Passed - Blood pressure under 140/90 in past 12 months BP Readings from Last 3 Encounters: 02/06/19 128/76 01/22/19 138/85 01/16/19 134/82 Passed - Recent (12 mo) or future (30 days) visit within the authorizing provider's specialty Patient had office visit in the last 12 months or has a visit in the next 30 days with authorizing provider or within the authorizing provider's specialty. See Patient Info tab in inbasket, or Choose Columns in Meds & Orders section of the refill encounter. Passed - Medication is active on med list Passed - Patient is age 18 or older Passed - No active on record Passed - Normal serum potassium on file in past 12 months Recent Labs Lab Test 02/13/19 1412 POTASSIUM 4.6 Passed - No positive test in past 12 months ??? warfarin (COUMADIN) 10 MG tablet [Pharmacy Med Name: WARFARIN SOD 10MG (TEN MG) TB WHITE] 30 tablet 0 Sig: TAKE 13MG ON MONDAY AND MONDAY. TAKE 10MG BY MOUTH ON ALL OTHER DAYS OF THE WEEKS. Last Written Prescription Date: unknown Last Fill Quantity: unknown, # refills: unknown Last office visit: 02/06/2019 with prescribing provider: Lucero Stevenson MD Future Office Visit: Next 5 appointments (look out 90 days) Apr 23, 2019 9:20 AM CDT Office visit with Lucero Stevenson MD, Ea Rn Pal 5a, EA EXAM ROOM 49 [facility] ([facility]) [address] [place] [address] [address] [facility] [address] Vitamin K Antagonists Failed - 02/14/2019 12:21 PM Failed - INR is within goal in the past 6 weeks Confirm INR is within goal in the past 6 weeks. Recent Labs Lab Test 02/07/19 1140 INR 2.7* Passed - Recent (12 mo) or future (30 days) visit within the authorizing provider's specialty Patient had office visit in the last 12 months or has a visit in the next 30 days with authorizing provider or within the authorizing provider's specialty. See Patient Info tab in inbasket, or Choose Columns in Meds & Orders section of the refill encounter. Passed - Medication is active on med list Passed - Patient is 18 years of age or older Passed - Patient is not Passed - No positive on file in past 12 months Routing refill request to provider for review/approval because: Medication is reported/historical documented in this encounter Plan of Treatment Upcoming Encounters Date Type Specialty Care Team Description 11/15/2022 Virtual Visit Pharm Haylie Gonzalez, [facility] [address] [place] [address] (Wo rk) 11/15/2022 Virtual Visit IM/Peds Yane Barraza MD [address] [place] [address] (Wo rk) 03/03/2023 Virtual Visit Neurology Erlinda Barber MD [address] [facility] 295 [place], [place] [phone] (Wo rk) documented as of this encounter Visit Diagnoses Diagnosis Essential hypertension, benign half-way current use of anticoagulant t herapy 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 embolism documented in this encounter Care Teams Finisher Wallboard And Plasterboard Relationship Specialty Start Date End Date Lucero Stevenson PCP - General Pediatrics 10/11/11 04/22/19 MD Annetta Chastity Montero MD Dermatology 09/23/[address] [place] [address] 98 [place], [place] [phone] Johnnie Alcocer MD Surgeon General Surgery 03/23/17 [address] [facility] 300 [place], [place] [phone] Lucero Stevenson Assigned PCP 06/17/18 11/09/19 MD Annetta [facility] 8675 [place], [place] [phone] Danni Marcus, CHANDLER Personal Advocate & 01/09/1901/17 Liaison (KODY) documented as of this encounter
--- OUTSIDE RECORDS SUMMARY | 2022-06-15 13:05 | XMS_ITS | Encounter Summary ---
:1945 Author Organization [facility] Address [address] [place] [address] Care Team Providers Name Role Phone Lucero Stevenson MD Primary Care Provider [phone] Chastity Montero MD Unavailable [phone] Johnnie Alcocer MD Unavailable Lucero Stevenson MD Unavailable [phone] Danni Marcus RN Unavailable Unavailable Reason for Visit Reason Onset Date Comments Orders 02/26/2019 verbal - PT/OT Encounter Details Date Type Department Care Team Description 02/26/2019 Telephone [facility] Lucero Stevenson rs (verbal - Clinic [place] Littlejohn MD PT/OT) [address] [facility] [address] [place] [address] [address] [place] [address] [place] [address] [phone] Social History Tobacco Use Types Packs/Day Years [...] Telephone Encounter - Ekta Azevedo RN - 02/26/2019 2:47 PM CDT Verbal orders given for PT/OT Effective today (02/26/19): ?? Evaluation to determine frequency and duration, also home safety, balance and need for walker Telephone Encounter - Prudence Alas - 02/26/2019 12:32 PM CDT Reason for Call: Request for an order or referral: Order or referral being requested: PT/OT (verbal) Effective today (02/26/19) Needs eval to determine frequency and duration, also home safety, balance and need for walker Date needed: as soon as possible Has the patient been seen by the PCP for this problem? YES Additional comments: also requesting current med list and H&P Phone number Patient can be reached at: Other phone number: Oralia @ [facility] [phone] Best Time: SEDRICK Can we leave a detailed message on this number? YES Call taken on 02/26/2019 at 12:32 PM by Prudence Alas documented in this encounter Plan of Treatment Upcoming Encounters Date Type Specialty Care Team Description 11/15/2022 Virtual Visit Haylie Wakefield, [address] [place] [address] (Wo rk) 11/15/2022 Virtual Visit IM/Peds Yane Barraza MD [address] [place] [address] (Wo rk) 03/03/2023 Virtual Visit Neurology Erlinda Barber MD [address] [facility] 295 [place] [address] (Wo rk) documented as of this encounter Visit Diagnoses Not on filedocumented in this encounter Care Teams Forder Operator Relationship Specialty Start Date End Date Lucero Stevenson PCP - General Pediatrics 10/11/11 04/22/19 MD Annetta Chastity Montero MD Dermatology 09/23/14 [address] [facility] 98 [place] [address] Johnnie Alcocer MD Surgeon General Surgery 03/23/[address] [place], [place] [phone] Lucero Stevenson Assigned PCP 06/17/18 11/09/19 MD Annetta [facility] 8675 [place], [place] [phone] Danni Marcus, CHANDLER Personal Advocate & 01/09/1901/17 Liaison (PAL) documented as of this encounter
--- OUTSIDE RECORDS SUMMARY | 2022-06-15 13:05 | XMS_ITS | Encounter Summary ---
:1945 Author Organization [place] Address [address] [place] [address] Care Team Providers Name Role Phone Lucero Stevenson MD Primary Care Provider [phone] Chastity Montero MD Unavailable [phone] Johnnie Alcocer MD Unavailable Lucero Stevenson MD Unavailable [phone] Danni Marcus RN Unavailable Unavailable Kana Doshi NUCLEAR SCIENTIST Unavailable Mtm, Ea Complex Unavailable Unavailable Svetlana Osman [facility] Unavailable [phone] Doris Lai MD Primary Care Provider Haylie Cheung [facility] Unavailable [phone] Galdino Valdez MD Unavailable Galdino Valdez MD Primary Care Provider Jaiden Holcomb MD Primary Care Provider [phone] Kendall Joseph MD Unavailable Erlinda Barber MD Unavailable Jaiden Holcomb MD Unavailable [phone] Lucero Stevenson MD Primary Care Provider [phone] Doris Lai MD Primary Care Provider Ruth John MD Unavailable Kajal Huggins MD Unavailable Patience Toussaint NP Unavailable Brook Sánchez MD Unavailable Yane Barraza MD Primary Care Provider Osmar Kidd MD Unavailable Erlinda Barber MD Unavailable Yane Barraza MD Primary Care Provider Lenore Alcala MD Unavailable Haylie Cheung [facility] Unavailable [phone] Gaye Patrick RN Unavailable Unavailable Kenya Abernathy APRN FOREST EXAMINER Unavailable [phone] Hayley German OD Unavailable [phone] Haylie Cheung [facility] Unavailable [phone] Reason for Visit Reason Onset Date Comments Medication Refill furosemide (LASIX) 4 0 MG tablet (Discontinued) Refill Request 02/19/2019 atenolol (TENORMIN) 25 MG tablet Refill Request 02/19/2019 losartan (COZAAR) 50 MG tablet Encounter Details Date Type Department Care Team Description 02/19/2019 [facility] [place] Littlejohn MD (furosemide (LASIX) 40 [address] [facility] Y MG tablet [facility] [address] [place] [address] (Discontinued)); Refill [address] [place] [address] Request (atenolol [place] [address] (TENORMIN) 25 MG [phone] tablet); Refill Request (losartan (COZA AR) 50 MG tablet) Social History Tobacco Use Types Packs/Day Years [...] this encounter Miscellaneous Notes Telephone Encounter - Maria Teresa Pinzon, RN - 02/25/2019 4:01 PM CDT Prescription approved per [facility] Refill Protocol. Maria Teresa Oconnell RN February 25, 2019 4:01 PM Telephone Encounter - Patience Woods - 02/19/2019 11:00 AM CDT Requested Prescriptions Pending Prescriptions Disp Refills ??? furosemide (LASIX) 40 MG tablet [Pharmacy Med Name: FUROSEMIDE 40MG TABLETS] Last Written Prescription Date: 08/01/2018 Last Fill Quantity: 90, # refills: 3 Last office visit: 02/06/2019 with prescribing provider: Lucero tSevenson Future Office Visit: Next 5 appointments (look out 90 days) Apr 23, 2019 9:20 AM CDT Office visit with Lucero Stevenson MD, Kyle Rn Hernandez 5a, KYLE EXAM ROOM 49 [facility] ([facility]) [address] [place] [address] [address] [facility] [address] 90 tablet 0 Sig: TAKE 1 TABLET(40 MG) BY MOUTH DAILY Diuretics (Including Combos) Protocol Failed - 02/19/2019 9:46 AM Failed - Normal serum creatinine on file in past 12 months Recent Labs Lab Test 02/13/19 1412 CR 0.49* Passed - Blood pressure under 140/90 in [...] 18 or older Passed - No active pregancy on record Passed - Normal serum potassium on file in past 12 months Recent Labs Lab Test 02/13/19 1412 POTASSIUM 4.6 Passed - Normal serum sodium on file in past 12 months Recent Labs Lab Test 02/13/19 1412 NA 140 Passed - No positive test in past 12 months ??? atenolol (TENORMIN) 25 MG tablet [Pharmacy Med Name: ATENOLOL 25MG TABLETS] Last Written Prescription Date: 05/30/2018 Last Fill Quantity: 180, # refills: 3 Last office visit: 02/06/2019 with prescribing provider: Lucero Stevenson Future Office Visit: Next 5 appointments (look out 90 days) Apr 23, 2019 9:20 AM CDT Office visit with Lucero Stevenson MD, Ea Rn Pal 5a, EA EXAM ROOM 49 [facility] ([facility]) [address] [facility] [address] [facility] [address] 180 tablet 0 Sig: TAKE 1 TABLET BY MOUTH TWICE DAILY Beta-Blockers Protocol Passed - 02/19/2019 9:46 AM Passed - Blood pressure under 140/90 in past 12 months BP Readings from Last 3 Encounters: 02/06/19 128/76 01/22/19 138/85 01/16/19 134/82 Passed - Patient is age 6 or older Passed - Recent (12 mo) [...] - Medication is active on med list ??? losartan (COZAAR) 50 MG tablet [Pharmacy Med Name: LOSARTAN 50MG TABLETS] Last Written Prescription Date: 05/30/2018 Last Fill Quantity: 90, # refills: 3 Last office visit: 02/06/2019 with prescribing provider: Lucero Stevenson Future Office Visit: Next 5 appointments (look out 90 days) Apr 23, 2019 9:20 AM CDT Office visit with Lucero Stevenson MD, Ea Rn Pal 5a, EA EXAM ROOM 49 [facility] ([address] [facility] [address] 90 tablet 0 Sig: TAKE 1 TABLET(50 MG) BY MOUTH DAILY Angiotensin-II Receptors Failed - 02/19/2019 9:46 AM Failed - Normal serum creatinine on file [...] No positive test in past 12 months documented in this encounter Plan of Treatment Upcoming Encounters Date Type Specialty Care Team Description 11/15/2022 Virtual Visit Pharm Haylie Gonzalez, [facility] [address] [facility] [place] [phone] (Wo rk) 11/15/2022 Virtual Visit IM/Peds Yane Barraza MD [address] [place] [address] [place] [phone] (Wo rk) 03/03/2023 Virtual Visit Neurology Erlinda Barber MD 420 [facility] 295 [place] [address] (Wo rk) documented as of this encounter Visit Diagnoses Diagnosis Essential hypertension, benign documented in this encounter Care Teams Tile Mason Relationship Specialty Start Date End Date Lucero Stevenson, PCP - General Pediatrics 10/11/11 Doris Lai MD PCP - General Internal Medicine 04/23/19 05/14/[address] [place] [address] [place] [phone] Galdino Valdez MD PCP - General Family Practice 11/29/19 02/12/20 [address] [place], [place] [phone] Jaiden Holcomb PCP - General Internal Medicine 02/13/2010/03 MD Jayesh [address] [place] [address] [place] [phone] Lucero Stevenson, PCP - General 05/15/19 1 07/23/18 MD TOÑO LOPEZ 8675 [place], [place] [phone] Doris Lai MD PCP - General 05/24/19 11/28/19 [address] [facility] [address] [place], [place] [phone] Yane Barraza MD PCP - General Internal Medicine 10/04/21 12/07/21 [address] [facility] [address] [place], [place] [phone] Yane Barraza MD PCP - General Internal Medicine 12/08/21 [address] [facility] [address] [place], [place] [phone] Chastity Montero MD Dermatology 09/23/[address] [place] [address] 98 [place] [address] Johnnie Alcocer MD Surgeon General Surgery 03/23/17 [address] [facility] 300 [place] [address] Lucero Stevenson, Assigned PCP 06/17/18 MD TOÑO LOPEZ [address] [place] [address] Danni Marcus, RN Personal Advocate & 01/09/1901/17 Liaison (PAL) Kana Doshi [facility] Clinic Care Primary Care - CC 03/19/19 05/07/19 Coordinator Fernando, Ea Complex 04/23/19 Svetlana Osman, Pharmacist Pharmacotherapy 04/23/19 [facility] [address] [place] [address] Haylie Cheung, Pharmacist Pharmacist 09/11/19 [facility] [address] [place] [address] Galdino Valdez MD Assigned PCP 11/10/19 05/23/20 [address] [place], [place] [phone] Opal, Assigned Sleep 05/08/20 03/27/21 Kendall Mehean MD Provider [address] [place] [address] [place] [address] Erlinda Barber MD Assigned Neuroscience 05/08/20 01/26/21 420 [facility] 295 Provider [place], [place] [address] Jaiden Holcomb Assigned PCP 05/24/20 MD Jayesh 909 [place], [place] [address] Ruth John MD Assigned Infectious 01/29/21 07/03/21 [facility] INFECTIOUS Disease Provider [facility] [address] [place] [address] [address] [place], [place] [phone] Kajal Huggins MD Assigned Neuroscience 01/29/21 10/23/21 2945 [facility] Provider [address] [place] [address] Patience Toussaint NP Assigned Surgical 01/29/21 02/11/22 2945 [facility] Provider [address] [place] [address] Brook Sánchez MD Assigned Infectious 07/04/21 909 [facility] [place] [address] Osmar Kidd MD Assigned Sleep 09/26/21 [address] [place] [address] [place] [address] Erlinda Barber MD Assigned Neuroscience 10/24/21 420 [facility] 295 [place] [address] Lenore Alcala MD Assigned Heart and 12/18/21 01/21/22 [address] [facility] Vascular Provider [address] [place] [address] Haylie Cheung, Assigned MTM 01/08/22 [facility] Pharmacist [address] [place] [address] [phone] Gaye Patrick, RN Personal Advocate & 01/18/22 Liaison (PAL) Kenya Abernathy APRN Assigned Heart and 01/22/22 [facility] Vascular Provider [address] [place] [address] Hayley German, Assigned Surgical 02/12/22 [place] Provider 3[address] [facility] [place] [address] Haylie Cheung, Assigned MTM 04/13/22 [facility] Pharmacist [address] [place] [address] [phone] documented as of this encounter
--- OUTSIDE RECORDS SUMMARY | 2022-06-15 13:05 | XMS_ITS | Encounter Summary ---
:1945 Author Organization [place] Address [address] [place] [address] Care Team Providers Name Role Phone Lucero Stevenson MD Primary Care Provider Chastity Montero MD Unavailable [phone] Johnnie Alcocer MD Unavailable Lucero Stevenson MD Unavailable Danni Marcus RN Unavailable Unavailable Encounter Details Date Type Department Care Team Description 02/13/2019 Travel Social History Tobacco Use Types Packs/Day [...] Haylie Gonzalez, [facility] [address] [facility] [place] [address] (Wo rk) 11/15/2022 Virtual Visit IM/Peds Yane Barraza MD [address] [facility] [address] [place] [phone] (Wo rk) 03/03/2023 Virtual Visit Neurology Erlinda Barber MD 420 [facility] 295 [place], [place] [phone] (Wo rk) documented as of this encounter Visit Diagnoses Not on filedocumented in this encounter Care Teams Pineapple Plantation Manager Relationship Specialty Start Date End Date Lucero Stevenson PCP - General Pediatrics 10/11/11 04/22/19 MD Annetta Chastity Montero MD Dermatology 09/23/14 420 [facility] 98 [place], [place] [phone] Johnnie Alcocer MD Surgeon General Surgery 03/23/[address] [place], [place] [address] Lucero Stevenson Assigned PCP 06/17/18 11/09/19 MD TOÑO Littlejohn [place] 8675 [place], [place] [phone] Danni Marcus, CHANDLER Personal Advocate & 01/09/1901/17 Liaison (PAL) documented as of this encounter
--- OUTSIDE RECORDS SUMMARY | 2022-06-15 13:05 | XMS_ITS | Encounter Summary ---
:1945 Author Organization [facility] Address [address] [place] [address] Care Team Providers Name Role Phone Lucero Stevenson MD Primary Care Provider [phone] Chastity Montero MD Unavailable [phone] Johnnie Alcocer MD Unavailable Lucero Stevenson MD Unavailable [phone] Danni Marcus RN Unavailable Unavailable Encounter Details Date Type Department Care Team Description 02/13/2019 Orders Only [facility] Ess ential hypertension, [facility] benign [address] [facility] [address] [place] [address] Social [...] Pharm Haylie Gonzalez, [facility] [address] [place] [address] (Wo rk) 11/15/2022 Virtual Visit IM/Peds Yane Barraza MD [address] [facility] [place] [address] (Wo rk) 03/03/2023 Virtual Visit Neurology Erlinda Barber MD [address] [facility] 295 [place] [address] (Wo rk) documented as of this encounter Procedures Procedure Name Priority Date/Time Associated Diagnosis Comme nts BASIC METABOLIC Routine 02/13/2019 2:12 PM Essential Result s for this PANEL CDT hypertension, benign procedu re are in the results section. documented in this encounter Results (ABNORMAL) Basic metabolic panel FUTURE anytime (02/13/2019 2:12 PM CDT) [facility] Method Time Signature Sodium 140 133 - 144 02/14/2019 [facility] mmol/L 9:16 AM CDT [facility] Potassium 4.6 3.4 - 5.3 02/14/2019 [facility] mmol/L 9:16 AM CDT [facility] Chloride 108 94 - 109 02/14/2019 [facility] mmol/L 9:16 AM CDT [facility] Carbon Dioxide 30 20 - 32 02/14/2019 [facility] mmol/L 9:16 AM CDT [facility] Anion Gap 2 (L) 3 - 14 02/14/2019 [facility] mmol/L 9:16 AM CDT [facility] Glucose 77 70 - 99 02/14/2019 [facility] mg/dL 9:16 AM CDT [facility] Urea Nitrogen 25 7 - 30 02/14/2019 [facility] mg/dL 9:16 AM [facility] Creatinine 0.49 (L) 0.52 - 02/14/2019 [facility] 1.04 9:16 AM T [facility] mg/dL [facility] GFR Estimate >90 >60 02/14/2019 [place] mL/min/{1 9:16 AM CDT CLINICS .73_m2} [facility] Comment: Non GFR Calc Starting 07/03/2018, serum creatinine ba sed estimated GFR (eGFR) will be calculated using the Chronic Kidney Dise [facility] Epidemiology Collaboration (CKD-EPI) equation. GFR Estimate If >90 >60 mL/min/{1.73_m2} 02/14/2019 9: [address] [facility] Comment: GFR Calc Starting 07/03/2018, serum creatinine ba sed estimated GFR (eGFR) will be calculated using the Chronic Kidney Dise [facility] Epidemiology Collaboration (CKD-EPI) equation. Calcium 9.1 8.5 - 10.1 mg/dL 02/14/2019 9:[address] [facility] Specimen Anatomical Collection Method Collection Time Receive d Time (Source) Location / / Volume Laterality Blood specimen 02/13/2019 2:12 PM 019 2:17 (specimen) CDT PM CDT Lucero Stevenson MD LAB - BLOOD ORDERABLES Performing Organization Address City/State/ZIP Code Phon e Number [facility] [address] [place] [address] documented in this encounter Visit Diagnoses Diagnosis Essential hypertension, benign documented in this encounter Care Teams President/Gm Production & Live Experiences Relationship Specialty Start Date End Date Lucero Stevenson PCP - General Pediatrics 10/11/11 04/22/19 MD Annetta Chastity Montero MD Dermatology 09/23/14 [address] [facility] [address] [place], [place] [address] Johnnie Alcocer MD Surgeon General Surgery 03/23/17 [address] [facility] [address] [place] [address] Lucero Stevenson Assigned PCP 06/17/18 11/09/19 MD TOÑO Littlejohn [place] [address] [place], [place] [id number] Danni Marcus RN Personal Advocate & 01/09/1901/17 Liaison (PAL) documented as of this encounter
--- OUTSIDE RECORDS SUMMARY | 2022-06-15 13:05 | XMS_ITS | Encounter Summary ---
:1945 Author Organization [facility] Address [address] [place] [address] Care Team Providers Name Role Phone Lucero Stevenson MD Primary Care Provider [phone] Chastity Montero MD Unavailable [phone] Johnnie Alcocer MD Unavailable Lucero Stevenson MD Unavailable [phone] Danni Marcus RN Unavailable Unavailable Reason for Visit Reason Onset Date Comments Home Care/Hospice 02/21/2019 orders Encounter Details Date Type Department Care Team Description 02/21/2019 Telephone [facility] Luceor Stevenson [facility] Yarelis Littlejohn MD (orders) [address] [place] [address] [place] [address] [phone] Social History Tobacco Use Types Packs/Day Years [...] More than 4 times per year 05/03/2021 jehovah's witness services? Do you belong to any clubs [...] this encounter Miscellaneous Notes Telephone Encounter - Nuvia Malloy RN - 02/21/2019 3:59 PM CDT Pt qualifies for SN visits. Requests orders. SN 4x week for 6 weeks 6 PRN INR and wound care HOUSEKEEPING SUPERVISOR HOTEL 2x wk for 6 wks 8 PRN for - February 21. Informed approved per standing orders. Home Care staff will fax these orders for signature by provider. Nuvia Malloy RN Flex documented in this encounter Plan of Treatment Upcoming Encounters Date Type Specialty Care Team Description 11/15/2022 Virtual Visit Pharm Haylie Gonzalez, [facility] [address] [facility] [address] [place] [phone] (Wo rk) 11/15/2022 Virtual Visit IM/Peds Yane Barraza MD [address] [facility] [place] [id number] (Wo rk) 03/03/2023 Virtual Visit Neurology Erlinda Barber MD [address] [facility] [address] [place] [address] (Wo rk) documented as of this encounter Visit Diagnoses Not on filedocumented in this encounter Care Teams Mortgage Underwriter Relationship Specialty Start Date End Date Lucero Stevenson PCP - General Pediatrics 10/11/11 04/22/19 MD Annetta Chastity Montero MD Dermatology 09/23/14 [address] [place] [facility] [address] [place], [place] [address] Johnnie Alcocer MD Surgeon General Surgery 03/23/17 [address] [facility] [facility] [address] [place], [place] [phone] Lucero Stevenson Assigned PCP 06/17/18 11/09/19 MD TOÑO Littlejohn [place] [address] [place] [address] Danni Marcus, CHANDLER Personal Advocate & 01/09/1901/17 Liaison (PAL) documented as of this encounter
--- OUTSIDE RECORDS SUMMARY | 2022-06-15 13:05 | XMS_ITS | Encounter Summary ---
:1945 Author Organization [place] Address [facility] [place] [address] Care Team Providers Name Role Phone Lucero Stevenson MD Primary Care Provider [phone] Chastity Montero MD Unavailable [phone] Johnnie Alcocer MD Unavailable Lucero Stevenson MD Unavailable [phone] Danni Marcus RN Unavailable Unavailable Encounter Details Date Type Department Care Team Description 02/08/2019 Orders Only [facility] Lucero Stevenson NOSIS NOT YET Clinic Yarelis Littlejohn MD DEFINED (Primary Dx) [address] [facility] [address] [place] [address] [address] [place] [address] [place] [address] [phone] Social History Tobacco Use Types Packs/Day Years [...] Pharm D Haylie Cheung, [facility] [address] [place] [address] (Wo rk) 11/15/2022 Virtual Visit IM/Peds Yane Barraza MD [address] [facility] [place] [address] (Wo rk) 03/03/2023 Virtual Visit Neurology Erlinda Barber MD [address] [facility] [address] [place] [address] (Wo rk) documented as of this encounter Procedures Procedure Name Priority Date/Time Associated Diagnosis Comme [facility] MD CERTIFICATION OUTBOUND SALES CONSULTANT Routine 02/08/2019 DIAGNOSIS NOT YE T DEFINED PATIENT documented in this encounter Results MD CERTIFICATION OUTBOUND SALES CONSULTANT PATIENT (02/08/2019) Narrative This result has an attachment that is no t available. Lucero Stevenson MD [employer]PORTS documented in this encounter Visit Diagnoses Diagnosis DIAGNOSIS NOT YET DEFINED - Primary documented in this encounter Care Teams Mall Manager Relationship Specialty Start Date End Date Lucero Stevenson PCP - General Pediatrics 10/11/11 04/22/19 MD Annetta Chastity Montero MD Dermatology 09/23/14 [address] [facility] 98 [place] [address] Johnnie Alcocer MD Surgeon General Surgery 03/23/[address] [place] [address] Lucero Stevenson Assigned PCP 06/17/18 11/09/19 MD TOÑO Littlejohn [place] [address] [place], [place] [phone] Danni Marcus, CHANDLER Personal Advocate & 01/09/1901/17 Liaison (PAL) documented as of this encounter
--- OUTSIDE RECORDS SUMMARY | 2022-06-15 13:05 | XMS_ITS | Encounter Summary ---
:1945 Author Organization [facility] Address [address] [place] [address] Care Team Providers Name Role Phone Lucero Stevenson MD Primary Care Provider [phone] Chastity Montero MD Unavailable [phone] Johnnie Alcocer MD Unavailable Lucero Stevenson MD Unavailable [phone] Danni Marcus RN Unavailable Unavailable Encounter Details Date Type Department Care Team Description 02/20/2019 Anesthesia Event [facility] Angely Lombardo MD [facility] [address] [place] [address] [facility] Dona Sanders, FINANCE TEACHER FOOD MIXER REPAIRER [address] [place] [address] [address] [place] [address] Anesthesia Record Procedure Summary Procedure Name Responsible Anesthesia Start Anesthesia Stop Anesthesiologist Time Time RIGHT CATARACT Angely Lombardo MD 02/20/19 1140 02/20/19 1227 EXTRACTION WITH INTRAOCULAR LENS IMPLANTATION (Right: Eye) Events Date Time Event Comment 02/20/2019 1131 1140 An Start 1140 An Start Data 1149 Present 1208 AN INCISION 1222 an stop data 1227 An Stop Electronically s igned by Dona Boateng on February 20, 2019 12:27 PM Name Total midazolam 1mg/mL 1 mg dexmedetomidine (PRECEDEX) 4 mcg/mL bolus 8 mcg lactated ringers infusion 100 mL Agents Name NO HELIOX O2 N2O Air Exp Sevoflurane Exp Isoflurane Exp Desflurane Exp N2O O2 Delivery Device Ins Sevoflurane Ins Isoflurane Ins Desflurane O2 Auxiliary Blood No blood administrations on file. Lines, Drains, and Airways Type Details Placement Removal Wound (used by OP [facility] 08/08/18; 1325; Left; 08/08/18 1325 by only) pressure injury Janie Stanford, CHANDLER (Retired) Pressure 01/07/19; 1940; 01/07/19 194 by Injury Sacrum; Yes Mike Peña RN Incision/Surgical Site 01/22/19; 1141; Left; 01/22/19 1141 by 1252 by Eye; 02/20/19; 1252 Leota, CHANDLER Haile Stacy M, RN Peripheral IV 02/20/19; 1149; 22 G; 02/20/19 1149 by 02/20/19 1252 by Right; Median cubital Luiza Lopez RN Vitale, S tacy M, RN vein (antecubital fossa); Chlorhexidine; None; Tolerated well Peripheral IV 02/20/19; 1200; 20 G; 02/20/19 1200 by 02/20/19 1251 by Left; Upper forearm; Dona Boateng St acy M, RN Accessory cephalic; Tracey, MIGEL FOOD MIXER REPAIRER Alcohol; None; 1; Tolerated well documented in this encounter Social History Tobacco [...] PM CDT documented as of this encounter OR Notes Anesthesia Postprocedure Evaluation - Angely Lombardo MD - 02/20/2019 4:19 PM CDT Patient: Charlette Brush Procedure(s): RIGHT CATARACT EXTRACTION WITH INTRAOCULAR LENS IMPLANTATION Diagnosis:NUCLEAR SCLEROSIS CATARACT Diagnosis Additional Information: No value filed. Anesthesia Type: MAC Note: Anesthesia Post Evaluation Patient location during evaluation: PACU Patient participation: Able to fully participate in evaluation Level of consciousness: awake Pain management: adequate Airway patency: patent Cardiovascular status: acceptable Respiratory status: acceptable Hydration status: acceptable PONV: controlled Anesthetic complications: None Last vitals: Vitals: 02/20/19 1015 02/20/19 1230 02/20/19 1241 BP: (!) 156/97 (!) 147/88 (!) 155/88 Resp: 16 16 16 Temp: 36.6 ??C (97.9 ??F) SpO2: 99% 100% 98% Electronically Signed By: Angely Lombardo MD February 20, 2019 4:19 PM Anesthesia Preprocedure Evaluation - Angely Lombardo MD - 02/20/2019 9:56 AM CDT Anesthesia Pre-Procedure Evaluation Patient: Charlette Brush : 1945 Preoperative Diagnosis: NUCLEAR SCLEROSIS CATARACT Procedure(s): RIGHT EYE PHACOEMULSIFICATION, CLEAR CORNEA WITH STANDARD LENS ( MAC TOPICAL ) Past Medical History: Diagnosis Date ??? BENIGN [...] Location: [facility] ? ? TONSILLECTOMY & ADENOIDECTOMY Anesthesia Evaluation . Pt has had prior anesthetic. No history of anesthetic complications ROS/MED HX ENT/Pulmonary: (+)sleep apnea, uses CPAP , . . (-) tobacco use and asthma Neurologic: Comment: Sciatic nerve injury Cardiovascular: (+) hypertension----. : . . . :. dysrhythmias a-fib, . (-) DOMINGO, orthopnea/PND and syncope METS/Exercise Tolerance: Hematologic: (+) History of blood clots pt is anticoagulated, - Musculoskeletal: Comment: H/o rhabdomyolysis GI/Hepatic: (+) GERD Asymptomatic on medication, Renal/Genitourinary: Endo: (+) Obesity, . Psychiatric: Infectious Disease: Malignancy: Other: Comment: Pressure ulcers , LE lymphedema , macular deg Physical Exam Airway Mallampati: III Dental (+) caps Cardiovascular Rhythm and rate: regular Pulmonary breath sounds clear to auscultation Lab Results Component Value Date WBC 8.4 01/07/2019 HGB 14.4 01/07/2019 HCT 43.5 01/07/2019 PLT 311 01/07/2019 CRP 15.1 (H) 05/16/2018 SED 37 (H) 05/16/2018 NA 140 02/13/2019 POTASSIUM 4.6 02/13/2019 CHLORIDE 108 02/13/2019 CO2 30 02/13/2019 BUN 25 02/13/2019 CR 0.49 (L) 02/13/2019 GLC 77 02/13/2019 TOMA 9.1 02/13/2019 PHOS 2.5 10/28/2017 MAG 1.8 10/28/2017 ALBUMIN 3.1 (L) 01/09/2019 PROTTOTAL 7.5 01/09/2019 ALT 24 01/09/2019 AST 23 01/09/2019 ALKPHOS 102 01/09/2019 BILITOTAL 0.6 01/09/2019 LIPASE 148 05/31/2011 AMYLASE 66 05/31/2011 PTT 46 (H) 10/28/2017 INR 2.4 (A) 02/20/2019 TSH 1.19 10/08/2007 Preop Vitals BP Readings from Last 3 Encounters: 02/06/19 128/76 01/22/19 138/85 01/16/19 134/82 Pulse Readings from Last 3 Encounters: 02/06/19 83 01/16/19 82 01/09/19 85 Resp Readings from Last 3 Encounters: 01/22/19 16 01/16/19 16 01/08/19 20 SpO2 Readings from Last 3 Encounters: 02/06/19 96% 01/22/19 100% 01/16/19 95% Temp Readings from Last 1 Encounters: 02/06/19 37 ??C (98.6 ??F) (Oral) Ht Readings from Last 1 Encounters: 02/06/19 1.702 m (5' 7) Wt Readings from Last 1 Encounters: 02/06/19 (!) 159 kg (350 lb 9.6 oz) Estimated body mass index is 54.91 kg/m?? as calculated from the following: Height as of 02/06/19: 1.702 m (5' 7). Weight as of 02/06/19: 159 kg (350 lb 9.6 oz). Allergies Allergen Reactions ??? Cephalexin Hives Keflex - hives ??? Lanolin Other (See Comments) skin irritation ??? Lisinopril Cough ??? Neomycin Other (See Comments) skin irritation ??? Penicillins Hives ??? Bactroban [Mupirocin Calcium] Rash ??? Mupirocin Rash and Unknown Social History Tobacco Use ??? Smoking status: Never Smoker ??? Smokeless tobacco: Never Used Substance Use Topics ??? Alcohol use: No Frequency: Never Prior to Admission medications Medication Sig Start Date End Date Taking? Authorizing Provider acetaminophen (TYLENOL) 325 MG tablet Take 325 mg by mouth daily as needed Yes Unknown, Entered By History ascorbic acid (VITAMIN C) 500 MG tablet Take 500 mg by mouth daily Yes Reported, Patient atenolol (TENORMIN) 25 MG tablet Take 1 tablet (25 mg) by mouth 2 times daily 05/30/18 Yes Lucero Stevenson MD Calcium Carb-Cholecalciferol (CALCIUM + D3) 600-200 MG-UNIT TABS Take 1 tablet by mouth daily Yes Reported, Patient cetirizine (ZYRTEC) 10 MG tablet Take 10 mg by mouth 2 times daily Yes Reported, Patient Cholecalciferol (VITAMIN D PO) Take 2,000 Units by mouth daily Yes Reported, Patient desoximetasone (TOPICORT) 0.05 % GEL Apply topically 2 times daily as needed for inflammation or itching Yes Unknown, Entered By History FEROSUL 325 (65 Fe) MG tablet Take 1 tablet (325 mg) by mouth daily (with breakfast) 06/01/18 Yes Lucero Stevenson MD furosemide (LASIX) 20 MG tablet Take 10 mg by mouth daily Yes Unknown, Entered By History hydrocortisone 2.5 % ointment Daily as needed 03/27/17 Yes Chastity Montero MD losartan (COZAAR) 50 MG tablet Take 1 tablet (50 mg) by mouth daily 05/30/18 Yes Lucero Stevenson MD Multiple Vitamins-Minerals (PRESERVISION/LUTEIN) CAPS Take 1 tablet by mouth 2 times daily Yes Unknown, Entered By History multivitamin w/minerals (THERA-VIT-M) tablet Take 1 tablet by mouth daily Yes Unknown, Entered By History nystatin (NYSTOP) 657983 UNIT/GM external powder APPLY TOPICALLY TO THE AFFECTED AREA BENEATH BILATERAL BREAST/GROIN FOLDS TWICE DAILY UNTIL RESOLVED. 01/21/19 Yes Lucero Stevenson MD warfarin (COUMADIN) 10 MG tablet Take 1 tablet (10 mg) by mouth daily or as directed by INR Clinic 02/19/19 Yes Lucero Stevenson MD losartan (COZAAR) 50 MG tablet Take 1 tablet (50 mg) by mouth daily 02/19/19 Lucero Stevenson MD nystatin (MYCOSTATIN) [id number] UNIT/GM external cream Apply topically daily as needed 04/26/18 Reported, Patient WARFARIN SODIUM PO Take 13 mg by mouth On Mon, Thur Unknown, Entered By History WARFARIN SODIUM PO Take 10 mg by mouth Mon, Mon, Mon, Sat, Sun Unknown, Entered By History Current Facility-Administered Medications Ordered in [facility] Medication Dose Route Frequency Last Rate Last Dose ??? lactated ringers infusion 500 mL Intravenous Continuous 25 mL/hr at 02/20/19 1028 500 mL at 02/20/19 1028 ??? lidocaine (AKTEN) ophthalmic gel 0.5 mL 0.5 mL Ophthalmic Once ??? lidocaine 1 % 0.1-1 mL 0.1-1 mL Other Q1H PRN ??? proparacaine (ALCAINE) 0.5 % ophthalmic solution 1 drop 1 drop Ophthalmic Once No current [facility]-ordered outpatient medications on file. ??? lactated ringers 500 mL (02/20/19 1028) Recent Labs Lab Test 02/13/19 1412 01/09/19 1053 NA 140 142 POTASSIUM 4.6 4.0 CHLORIDE 108 109 CO2 30 23 ANIONGAP 2* 10 GLC 77 89 BUN 25 20 CR 0.49* 0.55 TOMA 9.1 8.9 Recent Labs Lab Test 01/07/19 1508 12/26/18 1026 WBC 8.4 5.8 HGB 14.4 14.5 PLT 311 285 Recent Labs Lab Test 10/28/17 1739 ABO B RH Pos Recent Labs Lab Test 10/28/17 1515 10/18/17 2134 06/01/11 0210 TROPI <0.015 <0.015 <0.012 Recent Labs Lab Test 12/07/11 2122 PH 7.43 PCO2 39 PO2 73* HCO3 26 No results for input(s): HCG in the last 90853 hours. No results found for this or any previous visit (from the past 744 hour(s)). RECENT LABS: Anesthesia Plan History & Physical Review History and physical reviewed and following examination; no interval change. ASA Status: 3 . Plan for MAC Reason for MAC: Chronic cardiopulmonary disease (G9) PONV prophylaxis: Ondansetron (or other 5HT-3) Postoperative Care Consents Anesthetic plan, risks, benefits and alternatives discussed with: Patient.. Angely Lombardo MD documented in this encounter Miscellaneous Notes Anesthesia Care Transfer Note - Dona Boateng APRN CRNA - 02/20/2019 12:26 PM CDT Images from the original note were not included. Patient: Charlette Brush Procedure(s): RIGHT EYE PHACOEMULSIFICATION, CLEAR CORNEA WITH STANDARD LENS ( MAC TOPICAL ) Diagnosis: NUCLEAR SCLEROSIS CATARACT Diagnosis Additional Information: No value filed. Anesthesia Type: MAC Note: Airway :Nasal Cannula Patient transferred to:PACU Handoff Report: Identifed the Patient, Identified the Reponsible Provider, Reviewed the pertinent medical history, Discussed the surgical course, Reviewed Intra-OP anesthesia mangement and issues during anesthesia, Set expectations for post-procedure period and Allowed opportunity for questions and acknowledgement of understanding Vitals: (Last set prior to Anesthesia Care Transfer) MERY VITALS 02/20/2019 1152 - 02/20/2019 1226 02/20/2019 Pulse: 69 Ht Rate: 75 SpO2: 98 % Resp Rate (observed): 1 (Abnormal) Resp Rate (set): 10 Electronically Signed By: Dona Boateng APRN CRNA February 20, 2019 12:26 PM documented in this encounter Plan of Treatment Upcoming Encounters Date Type Specialty Care Team Description 11/15/2022 Virtual Visit Pharm Haylie Gonzalez, [facility] [address] [facility] [place] [address] (Lena max) 11/15/2022 Virtual Visit IM/Peds Yane Barraza MD [address] [facility] [place] [id number] (Lena max) 03/03/2023 Virtual Visit Neurology Erlinda Barber MD [address] [facility] [address] [place], [place] [address] (Wo rk) documented as of this encounter Visit Diagnoses Not on filedocumented in this encounter Administered Medications Inactive Administered Medications - up to 3 most recent administrations Medication Order MAR Action Action Date Dose Rate Site dexmedetomidine (PRECEDEX) 4 New Bag 02/20/2019 12:02 PM CDT 8 mcg mcg/mL bolus CONTINUOUS PRN, Starting on Mon02/20/19 at 1202, Anesthesia Intra-op midazolam (VERSED) injection Given 02/20/2019 12:03 PM CDT 1 mg Administer over 2 Minutes, PRN, Starting on Mon02/20/19 at 1203, Anesthesia Intra-op documented in this encounter Care Teams Cardroom Worker Relationship Specialty Start Date End Date Lucero Stevenson PCP - General Pediatrics 10/11/11 04/22/19 MD Annetta Chastity Montero MD Dermatology 09/23/14 [address] [facility] [address] [place] [address] Johnnie Alcocer MD Surgeon General Surgery 03/23/17 [address] [facility] [address] [place], [place] [phone] Lucero Stevenson Assigned PCP 06/17/18 11/09/19 MD Annetta [address] [address] Danni Marcus, CHANDLER Personal Advocate & 01/09/1901/17 Liaison (PAL) documented as of this encounter
--- OUTSIDE RECORDS SUMMARY | 2022-06-15 13:05 | XMS_ITS | Encounter Summary ---
:1945 Author Organization [facility] Address [address] [place] [address] Care Team Providers Name Role Phone Lucero Stevenson MD Primary Care Provider [phone] Chastity Montero MD Unavailable [phone] Johnnie Alcocer MD Unavailable Lucero Stevenson MD Unavailable [phone] Danni Marcus RN Unavailable Unavailable Encounter Details Date Type Department Care Team Description 02/07/2019 Orders Only [facility] Kevin roscopic hematuria; [facility] Essential hypertension, josy gn [address] [facility] [address] [place] [address] Social History [...] D Haylie Cheung, [facility] [address] [facility] [address] (Wo rk) 11/15/2022 Virtual Visit IM/Peds Yane Barraza MD [address] [facility] [place] [address] (Wo rk) 03/03/2023 Virtual Visit Neurology Erlinda Barber MD [address] [facility] [address] [place] [address] (Wo rk) documented as of this encounter Procedures Procedure Name Priority Date/Time Associated Diagnosis Comme nts URINE MICROSCOPIC Routine 02/07/2019 12:10 Microscopic Result s for this PM CDT hematuria procedure are i n the results section. UA MACROSCOPIC WITH Routine 02/07/2019 12:10 Microscopic Resu lts for this REFLEX TO MICROSCOPIC PM CDT hematuria proced ure are in AND CULTURE the results section. ALBUMIN RANDOM URINE Routine 02/07/2019 12:10 Essential Res ults for this QUANTITATIVE PM CDT hypertension, benign procedu re are in the results section. documented in this encounter Results (ABNORMAL) Urine Microscopic (02/07/2019 12:10 PM CDT) P athologist Signature WBC Urine 0 - 5 OTO5^0 - 5 02/07/2019 [facility] /HPF 12:25 PM CDT [facility] RBC Urine O - 2 OTO2^O - 2 02/07/2019 [facility] /HPF 12:25 PM CDT [facility] Bacteria Urine Few (A) NEG^Negati 02/07/2019 [facility] ve /HPF 12:25 PM CDT [facility] Specimen Anatomical Collection Method Collection Time Receive d Time (Source) Location / / Volume Laterality 02/07/2019 12:10 02/07/2019 PM CDT 12:16 PM CDT Lucero Stevenson MD LAB - URINE ORDERABLES Performing Organization Address City/State/ZIP Code Phon e Number [facility] [address] [place] [address] Albumin Random Urine Quantitative with Creat Ratio (02/07/2019 12:10 PM CDT) [facility] Method Time Signature Creatinine 15 mg/dL 02/08/2019 [place] Urine 11:58 AM CDT [facility] Albumin Urine <5 mg/L 02/08/2019 [place] mg/L 11:58 AM CDT [facility] Albumin Urine Unable to 0 - 25 02/08/2019 [place] mg/g Cr calculate due mg/g Cr 11:[address] [facility] Specimen Anatomical Collection Method Collection Time Receive d Time (Source) Location / / Volume Laterality Urine specimen 02/07/2019 12:10 9 (specimen) PM CDT 12:16 PM CDT Lucero Stevenson MD LAB - URINE ORDERABLES Performing Organization Address City/State/ZIP Code Phon e Number [facility] [address] [place] [address] [facility] [address] [place] [address], U [phone] (ABNORMAL) *UA reflex to Microscopic and Culture ([place] and [facility] ([facility] [place] [facility]) (02/07/2019 12:10 PM CDT) [facility] Method Time Signature Color Urine Yellow 02/07/2019 [place] 12:25 PM CLINICS CDT [facility] Appearance Urine Clear 02/07/2019 [place] 12:25 PM CLINICS CDT [facility] Glucose Urine Negative NEG^Negat 02/07/2019 [place] vance mg/dL 12:25 PM CLINICS CDT [facility] Bilirubin Urine Negative NEG^Negat 02/07/2019 [place] vance 12:25 PM CLINICS CDT [facility] Ketones Urine Negative NEG^Negat 02/07/2019 [place] vance mg/dL 12:25 PM CLINICS CDT [facility] Specific [place] 1.015 1.003 - 02/07/2019 [place] Urine 1.035 12:25 PM CLINICS CDT [facility] Blood Urine Trace (A) NEG^Negat 02/07/2019 [place] vance 12:25 PM CLINICS CDT [facility] pH Urine 7.0 5.0 - 7.0 02/07/2019 [place] pH 12:25 PM [facility] CDT [facility] Protein Albumin Negative NEG^Negat 02/07/2019 [place] Urine vance mg/dL 12:25 PM CLINICS CDT [facility] Urobilinogen 0.2 0.2 - 1.0 02/07/2019 [place] Urine EU/dL 12:25 PM [facility] CDT [facility] Nitrite Urine Negative NEG^Negat 02/07/2019 [place] vance 12:25 PM [facility] CDT [facility] Leukocyte Negative NEG^Negat 02/07/2019 [place] Esterase Urine vance 12:25 PM [facility] CDT [facility] Source Midstream 02/07/2019 [place] Urine 12:16 PM [facility] Specimen (Source) Anatomical Collection Method Collection Time Re ceived Time Location / / Volume Laterality Examination of 02/07/2019 12:10 9 midstream urine PM CDT 12:16 PM CDT specimen (procedure) Lucero Stevenson MD LAB - URINE ORDERABLES Performing Organization Address City/State/ZIP Code Phon e Number [facility] [address] [place] [address] documented in this encounter Visit Diagnoses Diagnosis Microscopic hematuria Essential hypertension, benign documented in this encounter Care Teams Private Equity Associate Relationship Specialty Start Date End Date Lucero Stevenson PCP - General Pediatrics 10/11/11 04/22/19 MD Annetta Chastity Montero MD Dermatology 09/23/14 [address] [facility] [address] [place] [address] Johnnie Alcocer MD Surgeon General Surgery 03/23/17 [address] [facility] [address] [place] [address] Lucero Stevenson Assigned PCP 06/17/18 11/09/19 MD TOÑO Littlejohn [facility] [address] [place] [address] Danni Marcus, [facility] Personal Advocate & 01/09/1901/17 Liaison (PAL) documented as of this encounter
--- OUTSIDE RECORDS SUMMARY | 2022-06-15 13:06 | XMS_ITS | Encounter Summary ---
:1945 Author Organization [facility] Address [address] [place] [address] Care Team Providers Name Role Phone Lucero Stevenson MD Primary Care Provider [phone] Chastity Montero MD Unavailable [phone] Johnnie Alcocer MD Unavailable Lucero Stevenson MD Unavailable [phone] Danni Marcus RN Unavailable Unavailable Encounter Details Date Type Department Care Team Description 01/24/2019 Anticoagulation Therapy [facility] skilled nursing current use of 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 (Primary Dx); Visit Clinic [place] Personal history of pulmonar y embolism [address] [facility] [address] [place] [address] Social [...] encounter Progress Notes Qing Guy RN - 01/24/2019 11:15 AM CDT ANTICOAGULATION FOLLOW-UP Patient Name: Charlette Brush Date: 01/24/2019 Contact Type: Telephone Call received from [facility] Home Care nurse, with INR result. Follow up instructions given over the phone to Home Care nurse for warfarin management. SUBJECTIVE: Patient Findings Comments: Per Homecare nurse: Cataract surgery went well. No bleeding or concerning bruises No medication changes No change in diet or eating habits Clinical Outcomes Comments: Per Homecare nurse: Cataract surgery went well. No bleeding or concerning bruises No medication changes No change in diet or eating habits OBJECTIVE INR Date Value Ref Range Status 01/24/2019 2.9 (A) 0.9 - 1.1 Final ASSESSMENT / PLAN INR assessment THER Recheck INR In: 1 WEEK INR Location Homecare INR Anticoagulation Summary As of 01/24/2019 INR goal: 2.0-3.0 TTR: 79.4 % (3.3 y) INR used for dosin.9 (01/24/2019) Warfarin maintenance plan: 13 mg (3 mg x 1 and 10 mg x 1) every Mon, Fri; 10 mg (10 mg x 1) all other days Full warfarin instructions: 01/25: 10 mg; 01/28: 10 mg; Otherwise 13 mg every Mon, Fri; 10 mg all other days Weekly warfarin total: 76 mg Plan last modified: Qing Guy, [facility] (10/11/2018) Next INR check: 01/31/2019 Target end date: Indefinite Indications 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 [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 Patient will continue same maintenance dose. Follow up in 1 week or sooner if needed. Qing Guy RN documented in this encounter Plan of Treatment Upcoming Encounters Date Type Specialty Care Team Description 11/15/2022 Virtual Visit Pharm D Haylie Cheung, [facility] [address] [facility] [place] [address] (Wo winter) 11/15/2022 Virtual Visit IM/Peds Yane Barraza MD [address] [facility] [place] [address] (Wo winter) 03/03/2023 Virtual Visit Neurology Erlinda Barber MD [address] [facility] [address] [place] [address] (Wo winter) documented as of this encounter Procedures Procedure Name Priority Date/Time Associated Diagnosis Comme nts INR Routine 01/24/2019 2:23 PM Results f or this CDT procedure are i n the results section . documented in this encounter Results (ABNORMAL) INR (01/24/2019 2:23 PM CDT) P athologist Signature INR 2.9 (A) 0.9 - 1.1 EXTERNAL LAB Specimen (Source) Anatomical Collection Method Collection Time Re ceived Time Location / / Volume Laterality Blood specimen 01/24/2019 2:23 PM (specimen) CDT Resulting Agency Comment Interim Home care Lucero Stevenson MD LAB - BLOOD ORDERABLES Performing Organization Address City/State/ZIP Code Phon e Number EXTERNAL LAB EXTERNAL LAB External Lab documented in this encounter Visit Diagnoses Diagnosis skilled nursing current use of anticoagulant t herapy - Primary 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 embolism documented in this encounter Care Teams Sustainability Coordinator Relationship Specialty Start Date End Date Lucero Stevenson PCP - General Pediatrics 10/11/11 04/22/19 MD Annetta Chastity Montero MD Dermatology 09/23/14 [address] [facility] [address] [place], [place] [phone] Johnnie Alcocer MD Surgeon General Surgery 03/23/17 [address] [facility] [facility] [address] [place], [place] [id number] Lucero Stevenson Assigned PCP 06/17/18 11/09/19 [facility] [address] [place] [address] Danni Marcus, [place] Personal Advocate & 01/09/1901/17 Liaison (PAL) documented as of this encounter
--- OUTSIDE RECORDS SUMMARY | 2022-06-15 13:06 | XMS_ITS | Encounter Summary ---
:1945 Author Organization [facility] Address [address] [place] [address] Care Team Providers Name Role Phone Lucero Stevenson MD Primary Care Provider Chastity Montero MD Unavailable [phone] Johnnie Alcocer MD Unavailable Lucero Stevenson MD Unavailable [phone] Danni Marcus RN Unavailable Unavailable Encounter Details Date Type Department Care Team Description 01/21/2019 Travel Social History Tobacco Use Types Packs/Day [...] Pharm Haylie Gonzalez, [facility] [address] [facility] [place] [address] (Wo rk) 11/15/2022 Virtual Visit IM/Peds Yane Barraza MD [address] [facility] [address] [place] [phone] (Wo rk) 03/03/2023 Virtual Visit Neurology Erlinda Barber MD [address] [facility] [address] [place], [place] [phone] (Wo rk) documented as of this encounter Visit Diagnoses Not on filedocumented in this encounter Care Teams Allergy Specialist Relationship Specialty Start Date End Date Lucero Stevenson PCP - General Pediatrics 10/11/11 04/22/19 MD Annetta Chastity Montero MD Dermatology 09/23/14 [address] [facility] [address] [place], [place] [phone] Johnnie Alcocer MD Surgeon General Surgery 03/23/[address] [place], [place] [phone] Lucero Stevenson Assigned PCP 06/17/18 11/09/19 MD TOÑO Littlejohn [facility] [address] [place], [place] [phone] Danni Marcus, [place] Personal Advocate & 01/09/1901/17 Liaison (PAL) documented as of this encounter
--- OUTSIDE RECORDS SUMMARY | 2022-06-15 13:06 | XMS_ITS | Encounter Summary ---
:1945 Author Organization [place] Address [address] [place] [address] Care Team Providers Name Role Phone Lucero Stevenson MD Primary Care Provider Chastity Montero MD Unavailable [phone] Johnnie Alcocer MD Unavailable Lucero Stevenson MD Unavailable [phone] Danni Marcus RN Unavailable Unavailable Encounter Details Date Type Department Care Team Description 01/22/2019 Surgery [facility] Bernabe Crespo LEFT EYE CATARACT Chaitanyadamarion Galarza MD EXTRACTION WITH Services [facility] INTRAOCULAR LENS [address] [facility], [address] [facility] [address] [place] [address] [place], [place] [phone] (Wo rk) Surgery Details Date/Time Status Location OR Service Patient Case Case Traum a Class Class Type Case? 01/22/19 11:25 Posted [place] [id number] [facility] AM Panel 1 Procedure LRB Anes Op Region Wound Class Commen ts LEFT EYE CATARACT EXTRACTION Left MAC with Topical Eye I -Clean WITH INTRAOCULAR LENS IMPLANTATION Surgeon Surgeon Role Service [...] 05/03/2021 organizations such as anabaptism groups, unions, fraWaynaut or athletic groups, or school groups? How [...] Sign Reading Time Taken Comments Blood Pressure 140/83 01/22/2019 11:49 AM CDT Pulse - - Temperature 36.4 ??C (97.5 ??F) 01/22/2019 10:14 AM CDT Respiratory Rate 16 01/22/2019 11:49 AM CDT Oxygen Saturation 100% 01/22/2019 11:49 AM CDT Inhaled Oxygen Concentration - - Weight - - Height - - Body Mass Index - - documented in this encounter Discharge Instructions Discharge InstructionsLesia Ann RN - 01/22/2019 12:10 PM CDT [facility] Discharge Instructions [...] questions of medical nature, call your physician. [facility] Cataract Surgery Discharge Instructions [facility] MD David Ang MD J. Hasan, MD C. Nichols, MD J. O'Neill, MD S. Schaefer, MD J. Stephens, MD ?? Start using drops when you arrive at home today Vigamox or Ofloxacin (Watt top) - one drop in surgical eye 3 times per day until gone. ?? Prednisolone acetate 1.0% (pink or white top) - one drop in surgical eye 3 times per day until gone. ?? Ketorolac or Diclofenac (Glover top) - one drop in surgical [...] ?? On-call doctor can be reached at [phone]. documented in this encounter Medications at Time [...] 500 MG tablet daily atenolol (TENORMIN) 25 Take 1 tablet (25 180 tablet 3 201702/19/2019 MG tabletIndications: mg) by mouth 2 times Essential hypertension, daily benign Calcium Take 1 tablet by [...] mouth 0 03/16/2019 tablet 2 times daily hydrocortisone 2.5 % Daily as needed 180 g 3 03/27/2017 05/14/2019 ointmentIndications: Dermatitis losartan (COZAAR) 50 MG Take 1 tablet (50 90 tablet 3 05/3002/19/2019 tabletIndications: mg) by mouth daily Essential hypertension, benign multivitamin w/minerals Take 1 tablet by 0 05/04/2021 (THERA-VIT-M) tablet mouth daily nystatin (MYCOSTATIN) Apply topically 0 8 09/11/2019 013947 UNIT/GM external daily as needed cream nystatin (MYCOSTATIN) Apply topically 2 0 02/06/2019 072501 UNIT/GM external times daily as powder needed nystatin (NYSTOP) 578928 APPLY TOPICALLY TO 60 g 0 02/201909/11/2019 UNIT/GM external THE AFFECTED AREA powderIndications: BENEATH BILATERAL Pressure ulcer of BREAST/GROIN FOLDS ischium, left, stage IV TWICE DAILY UNTIL (H) RESOLVED. WARFARIN SODIUM PO Take 13 mg by mouth 0 03/17/2019 On Mon, WARFARIN SODIUM PO Take 10 mg by mouth 0 03/17/2019 daily documented as of this encounter Nursing Notes Yanet Bazzi, CHANDLER - 01/21/2019 1:03 PM CDT Pre op Phone call: Spoke with patient and reviewed time to arrive tomorrow at 1000. Plans to use user experience researcher parking and knows where to go. Instructed to bring her eye drops from Dr. Bates, CPAP in case needed, and list of medications. Patient states she was instructed to remain NPO after 2400 but plans totake her BP meds. With a small sip of water in the morning. Daughter Lyndsay will be her responsible adult for the surgery. documented in this encounter Miscellaneous Notes Op Note - Bernabe Crespo MD - 01/22/2019 11:50 AM CDT PREOPERATIVE DIAGNOSIS: Visually significant cataract, Left eye POSTOPERATIVE DIAGNOSIS: Same PROCEDURES: 1. Cataract extraction with intraocular lens implant Left eye. SURGEON: Bernabe Crespo M.D. INDICATIONS: The patient Charlette Brush presented to the eye clinic with decreased vision secondary to cataract in the Left eye. The risks, including, but not limited to infection, loss of vision, lossof eye, need for more surgery, and bleeding, along with the benefits, alternatives, expectations, and the procedure itself were discussed at length with the patient who wished to proceed with surgery. All questions were answered to the patient's satisfaction. [...] correct surgical site. With adequate anesthesia, the Left eye was prepped and draped in the usual sterile fashion. A lid speculum was placed, and the operating microscope was rotated into position. A paracentesis was created. Through this limbal paracentesis, the anterior chamber was filled with preservative-free lidocaine followed by viscoelastic.A temporal clear corneal incision was created at the limbus using a 2.5 mm blade. A capsulorrhexis was initiated using a cystotome and was completed in continuous and circular fashion using the capsulorrhexis forceps. The lens nucleus was hydrodissected using balanced salt solution. The lens nucleus was rotated and removed using phacoemulsification in a stop and chop technique. Residual cortical material was removed using irrigation-aspiration. The capsular bag was reinflated to its maximal extent with cohesive viscoelastic. A 17.5 diopter ZCBOO was inserted into the capsular bag and noted to be well centered. The lens power selected was reviewed using the intraocular lens power measurements that w ere obtained preoperatively to confirm that the correct lens was selected for the desired post-operative refractive state. The residual viscoelastic was aspirated. The anterior chamber was inflated with balanced salt solution and the wounds were hydrated and found to be self-sealing. The eye was palpated and found to be of normal physiologic pressure. The lid speculum was removed. One drop of postoperative anti-inflammatory and antibiotic medication was instilled in the eye and a clear shield placedover the eye. The patient tolerated the procedure well and there were no intraoperative complications. PLAN: The patient will be discharged to home and will follow up tomorrow in the eye clinic. EBL: None Complications: None Implant Name Type Inv. Item Serial No. Post Office Clerk Lot No. LRB No. Used EYE IMP IOL GABRIEL PCL TECNIS [id number] 17.5 Lens/Eye Implant EYE IMP IOL GABRIEL PCL TECNIS [id number] 17.5 [id number] [employer] Left 1 documented in this encounter Plan of Treatment Upcoming Encounters Date Type Specialty Care Team Description 11/15/2022 Virtual Visit Pharm D Haylie Cheung, [facility] [address] [address] [place] [phone] (Wo rk) 11/15/2022 Virtual Visit IM/Peds Yane Barraza MD [address] [facility] [address] [place] [phone] (Wo rk) 03/03/2023 Virtual Visit Neurology Erlinda Barber MD [address] [facility] [address] [place], [place] [id number] (Wo rk) documented as of this encounter Procedures Procedure Name Priority Date/Time Associated Diagnosis Comme nts PHACOEMULSIFICATION, 01/22/2019 11:16 AM NUCLEAR SCLER OSIS CATARACT, WITH CDT CATARACT INTRAOCULAR LENS IMPLANT documented in this encounter Visit Diagnoses Not on filedocumented in this encounter Administered Medications Inactive Administered Medications - up to 3 most recent administrations Medication Order MAR Action Action Date Dose Rate Site BSS 500 with EPINEPHrine Given 01/22/2019 11:35 AM CDT 500 mLs Eye Left 1:1000 (PF) 0.3mL PRN, Starting on Mon01/22/19 at 1135, Intra-procedure BSS ophthalmic solution Given 01/22/2019 11:35 AM CDT 15 mLs PRN, Starting on Mon01/22/19 at 1135, Intra-procedure cyclopentolate (CYCLOGYL) 1 % ophthalmic Given 01/22/2019 10:29 AM CDT 1 drop solution 1 drop 1 drop, Ophthalmic, EVERY 5 MIN PRIOR TO SURGERY, Starting on Mon01/22/19 at 0956, For 3 doses, Instill into operative eye(s), starting upon admission., Pre-procedure Given 01/22/2019 10:18 AM CDT 1 drop Given 01/22/2019 10:08 AM CDT 1 drop lactated ringers infusion at 25 mL/hr, Intravenous, CONTINUOUS, IF patient NOT on dialysis., Pre-procedure, Starting on Mon01/22/19 at 1030, Until Mon01/22/19 at 14 56 lidocaine (PF) (XYLOCAINE) Given 01/22/2019 11:35 AM 1 mL Operative Site/Surgical 1 % injection CDT Site PRN, Starting on Mon01/22/19 at 1135, Intra-procedure ofloxacin (patient own, no charge) (OCUFLOX) Given 03/2019 11:44 AM CDT 1 drop 0.3 % ophthalmic drops PRN, Starting on Mon01/22/19 at 1144, Intra-procedure phenylephrine (MYDFRIN /EDUARDA-SYNEPHRINE) 2.5 Given 03/2019 10:29 AM CDT 1 drop % ophthalmic solution 1 drop 1 drop, Ophthalmic, EVERY 5 MIN PRIOR TO SURGERY, Starting on Mon01/22/19 at 0956, For 3 doses, Instill into operative eye(s), starting upon admission., Pre-procedure Given 01/22/2019 10:18 AM CDT 1 drop Given 01/22/2019 10:08 AM CDT 1 drop povidone-iodine (BETADINE) 5 % ophthalmic Given 01/22/2019 10:08 AM CDT 1 drop solution 1 drop Ophthalmic, ONCE, On Mon01/22/19 at 1000, For 1 dose, To operative eye(s) pre-op. , Pre-procedure prednisoLONE acetate Given 01/22/2019 11:44 AM 1 drop Operative Site/Surgical (patient own, no charge) CDT Site (PRED FORTE) 1 % ophthalmic suspension PRN, Starting on Mon01/22/19 at 1144, Intra-procedure proparacaine (ALCAINE) 0.5 % ophthalmic Given 01/22/2019 10:08 A M CDT 1 drop solution 1 drop 1 drop, Ophthalmic, ONCE, On Mon01/22/19 at 1000, For 1 dose, Into operative eye(s) before dilating drops instilled., Pre-procedure sod hyaluronate-sod chondroitinoitin-sod Given 01/22/2019 11:35 AM CDT 1 mL hyaluronate (DUOVISC) kit PRN, Starting on Mon01/22/19 at 1135, Intra-procedure tropicamide (MYDRIACYL) 1 % ophthalmic Given 01/22/2019 10:29 AM CDT 1 drop solution 1 drop 1 drop, Ophthalmic, EVERY 5 MIN PRIOR TO SURGERY, Starting on Mon01/22/19 at 0956, For 3 doses, Instill into operative eye(s), Pre-procedure Given 01/22/2019 10:18 AM CDT 1 drop Given 01/22/2019 10:08 AM CDT 1 drop documented in this encounter Active and Recently Administered Medications Times are shown in CDT. Scheduled Medication Order 01/20/2019 01/21/2019 01/22/2019 cyclopentolate (CYCLOGYL) 1 % ophthalmic solution 1 drop (COMPLE CAMILA) 1008 (Given - Provider: Hilda Chairez RN)1018 (Given - Provider: Hilda Chairez RN)1029 (Given - Provider: Hilda Chairez, CHANDLER) 1 drop, Ophthalmic, EVERY 5 MIN PRIOR TO SURGERY, Starting Mon01/22/19 at 0956, For 3 doses, Instill into operative eye(s), starting upon admission., Pre-procedure lidocaine (AKTEN) ophthalmic gel 0.5 mL 1000 (Canceled Entry - Provider: Orders Generic Provider - Comment: Automatically canceled at discontinue of medication order) 0.5 mL, Ophthalmic, ONCE, Mon01/22/19 at 1000, For 1 dose, Applied by MD pre- operative prior to surgery. Apply 0.5 mL to operative eye(s)., Pre-procedure phenylephrine (MYDFRIN /EDUARDA-SYNEPHRINE) 2.5 % ophthalmic solution 1 drop (COMPLETED) 1008 (Given - Provid er: Hilda Chairez RN)1018 (Given - Provider: Hilda Chairez RN)1029 (Given - Provider: Hilda Chairez RN) 1 drop, Ophthalmic, EVERY 5 MIN PRIOR TO SURGERY, Starting e 01/22/19 at 0956, For 3 doses, Instill into operative eye(s), starting upon admission., Pre-procedure povidone-iodine (BETADINE) 5 % ophthalmic solution 1 drop (COMPL ETED) 1008 (Given - Provider: Hilda Chairez RN) Ophthalmic, ONCE, e 01/22/19 at 1000, Fo r 1 dose, To operative eye(s) pre-op. , Pre-procedure proparacaine (ALCAINE) 0.5 % ophthalmic solution 1 drop (COMPLET ED) 1008 (Given - Provider: Hilad Chairez RN) 1 drop, Ophthalmic, ONCE, e 01/22/19 at 1000, For 1 dose, Into operative eye(s) before dilating drops instilled., Pre-procedure proparacaine (ALCAINE) 0.5 % ophthalmic solution 1 drop 1000 (Canceled Entry - Provider: Orders Generic Provider - Comment: Automatically canceled at discontinue of medication order) 1 drop, Ophthalmic, ONCE, e 01/22/19 at 1000, For 1 dose, Apply to operative eye(s)., Pre-procedure tropicamide (MYDRIACYL) 1 % ophthalmic solution 1 drop (COMPLETE D) 1008 (Given - Provider: Hilda Chairez RN)1018 (Given - Provider: Hilda Chairez RN)1029 (Given - Provider: Hilda Chairez, CHANDLER) 1 drop, Ophthalmic, EVERY 5 MIN PRIOR TO SURGERY, Starting Mon01/22/19 at 0956, For 3 doses, Instill into operative eye(s), Pre-procedure Continuous Medication Order 01/20/2019 01/21/2019 01/22/2019 lactated ringers infusion 1030 ( Canceled Entry - Provider: Orders Generic Provider - Comment: Automatically canceled at discontinue of medication order) at 25 mL/hr, Intravenous, CONTINUOUS, IF patient NOT on dialysis., Pre- procedure, Starting Mon01/22/19 at 1030, Until Mon01/22/19 at 1456 PRN Medication Order 01/20/2019 01/21/2019 01/22/2019 BSS 500 with EPINEPHrine 1:1000 (PF) 0.3mL (CANCELED) 1135 (Given - Provider: Bernabe Crespo MD) PRN, Starting Mon01/22/19 at 1135, Intra-procedure BSS ophthalmic solution (CANCELED) 1135 (Given - Provider: Bernabe Crespo MD) PRN, Starting Mon01/22/19 at 1135, Intra-procedure lidocaine (PF) (XYLOCAINE) 1 % injection (CANCELED) 1135 (Given - Provider: Bernabe Crespo MD) PRN, Starting Mon01/22/19 at 1135, Intra-procedure ofloxacin (patient own, no charge) (OCUFLOX) 0.3 % ophthalmi c drops (CANCELED) 1144 (Given - Provider: Bernabe lloyd MD) PRN, Starting Mon01/22/19 at 1144, Intra-procedure prednisoLONE acetate (patient own, no ch arge) (PRED FORTE) 1 % ophthalmic suspension (CANCELED) 1144 (Given - Prov ider: Bernabe Crespo MD) PRN, Starting Mon01/22/19 at 1144, Intra-procedure sod hyaluronate-sod chondroitinoitin-sod hyaluronate (DUOVISC) k it (CANCELED) 1135 (Given - Provider: Bernabe Crespo MD) PRN, Starting Mon01/22/19 at 1135, Intra-procedure documented in this encounter Care Teams Associate Web Developer Relationship Specialty Start Date End Date Lucero Stevenson PCP - General Pediatrics 10/11/11 04/22/19 MD Annetta Chastity Montero MD Dermatology 09/23/[address] [place] [address] Johnnie Alcocer MD Surgeon General Surgery 03/23/17 [address] [place] [address] Lucero Stevenson Assigned PCP 06/17/18 11/09/19 MD Annetta [facility] [address] [place], [place] [phone] Danni Marcus, CHANDLER Personal Advocate & 01/09/1901/17 Liaison (PAL) documented as of this encounter
--- OUTSIDE RECORDS SUMMARY | 2022-06-15 13:06 | XMS_ITS | Encounter Summary ---
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 Follow up instructions left on confidential voicemail for warfarin management. OBJECTIVE INR Date Value Ref Range Status 01/29/2019 2.9 (A) 0.9 - 1.1 Final ASSESSMENT / PLAN INR assessment THER Recheck INR In: 1 WEEK INR Location Homecare INR Anticoagulation Summary As of 01/29/2019 INR goal: 2.0-3.0 TTR: 79.5 % (3.3 y) INR used for dosin.9 (01/29/2019) Warfarin maintenance plan: 13 mg (3 mg x 1 and 10 mg x 1) every Mon, Fri; 10 mg (10 mg x 1) all other days Full warfarin instructions: 13 mg every Mon, Fri; 10 mg all other days Weekly warfarin total: 76 mg Plan last modified: Qing Guy, RN (10/11/2018) Next INR check: 02/05/2019 Target end date: Indefinite Indications 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 embolism [Z86.711] 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 Patient will continue same dose as the past 7 days. Follow up in 1 week or sooner if needed. Qing Guy, RN documented in this encounter Plan of Treatment Upcoming Encounters Date Type Specialty Care Team Description 11/15/2022 Virtual Visit Pharm D Haylie Cheung, [facility] [address] [facility] [place] [place] [address] (Wo rk) 11/15/2022 Virtual Visit IM/Peds Yane Barraza MD [address] [facility] [place] [address] (Wo rk) 03/03/2023 Virtual Visit Neurology Erlinda Barber MD [address] [facility] [address] [place] [address] (Wo rk) documented as of this encounter Procedures Procedure Name Priority Date/Time Associated Diagnosis Comme nts INR Routine 01/29/2019 10:09 AM Results for this CDT procedure are i n the results section . documented in this encounter Results (ABNORMAL) INR (01/29/2019 10:09 AM CDT) P athologist Signature INR 2.9 (A) 0.9 - 1.1 EXTERNAL LAB Specimen (Source) Anatomical Collection Method Collection Time Re ceived Time Location / / Volume Laterality Blood specimen 01/29/2019 10:09 (specimen) AM CDT Resulting Agency Comment [facility] Lucero Stevenson MD LAB - BLOOD ORDERABLES Performing Organization Address City/State/ZIP Code Phon e Number EXTERNAL LAB EXTERNAL LAB External Lab documented in this encounter Visit Diagnoses Diagnosis 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 embolism half-way current use of anticoagulant t herapy documented in this encounter Care Teams Auto Body Repair Estimator Relationship Specialty Start Date End Date Lucero Stevenson PCP - General Pediatrics 10/11/11 04/22/19 MD Annetta Chastity Montero MD Dermatology 09/23/14 [address] [facility] [address] [place] [phone] Johnnie Alcocer MD Surgeon General Surgery 03/23/17 [address] [facility] [address] [place], [place] [phone] Lucero Stevenson Assigned PCP 06/17/18 11/09/19 MD [facility] [address] [address] Danni Marcus, CHANDLER Personal Advocate & 01/09/1901/17 Liaison (PAL) documented as of this encounter
--- OUTSIDE RECORDS SUMMARY | 2022-06-15 13:06 | XMS_ITS | Encounter Summary ---
:1945 Author Organization [place] Address [address] [place] [address] Care Team Providers Name Role Phone Lucero Stevenson MD Primary Care Provider [phone] Chastity Montero MD Unavailable [phone] Johnnie Alcocer MD Unavailable Lucero Stevenson MD Unavailable [phone] Danni Marcus RN Unavailable Unavailable Reason for Visit Reason Comments Pre-Op Exam Encounter Details Date Type Department Care Team Description 02/06/2019 Office Visit [facility] Albert Stevenson MD [address] [address] Preop general physical exam (Primary Dx) ; [facility] [place] 5a, Kyle Rn Pal Senile cataract, unspecified age-related cataract type, unspecified laterality; [address] Lymphedema of both lower extremities [facility] [address] [place] [address] Social [...] Reading Time Taken Comments Blood Pressure 128/76 02/06/2019 9:07 AM CDT Pulse 83 02/06/2019 9:07 AM CDT Temperature 37 ??C (98.6 ??F) 02/06/2019 9:07 AM CDT Respiratory Rate - - Oxygen Saturation 96% 02/06/2019 9:07 AM CDT Inhaled Oxygen Concentration - - Weight 159 kg (350 lb 9.6 oz) 02/06/2019 9:07 AM CDT Height 170.2 cm (5' 7) 02/06/2019 9:07 AM CDT Body Mass Index 54.91 02/06/2019 9:07 AM CDT documented in this encounter Patient Instructions Patient InstructionsJose Longoria CMA - 02/06/2019 8:50 AM CDT Increase lasix to 20mg (1 full tablet) daily for 5 days. Home care to check bmp and weight next Monday The day of surgery hold lasix until after surgery. No vitamins or supplements the day of surgery. Okto take prescription medications. Before Your Surgery ??? Call your surgeon if there is any change in your health. This includes signs of a cold or flu (such as a sore throat, runny nose, cough, rash or fever). ??? Do not smoke, drink alcohol or take over the counter medicine (unless your surgeon or primary care doctor tells you to) for the 24 hours before and after surgery. ??? If you take prescribed drugs: Follow your doctor???s orders about which medicines to take and which to stop until after surgery. ??? Eating and drinking prior to surgery: follow the instructions from your surgeon ??? Take a shower or bath the night before surgery. Use the soap your surgeon gave you to gently clean your skin. If you do not have soap from your surgeon, use your regular soap. Do not shave or scrubthe surgery site. Wear clean pajamas and have clean sheets on your bed. documented in this encounter Progress Notes Lucero Stevenson MD - 02/06/2019 8:50 AM CDT [facility] [address] [facility] [address] [employer] [address] Dept: [phone] PRE-OP EVALUATION: Today's date: 02/06/2019 Charlette Carreon Tristinnithin (: 1945) presents for pre-operative evaluation assessment as requested by . She requires evaluation and anesthesia risk assessment prior to undergoing surgery/procedure for treatment of Right Eye Phacoemulsification . Proposed Surgery/ Procedure: Cataract Surgery Date of Surgery/ Procedure: 02/20/19 Time of Surgery/ Procedure: 11:30am Hospital/Surgical Facility: [facility] Primary Physician: Lucero Stevenson Type of Anesthesia Anticipated: General Patient has a Health Care Directive or Living Will: NO 1. NO - Do you have a history of heart attack, stroke, stent, bypass or surgery on an artery in the head, neck, heart or legs? 2. NO - Do you ever have any pain or discomfort in your chest? 3. NO - Do you have a history of Heart Failure? 4. NO - Are you troubled by shortness of breath when: walking on the level, up a slight hill or at night? 5. NO - Do you currently have a cold, bronchitis or other respiratory infection? 6. NO - Do you have a cough, shortness of breath or wheezing? 7. NO - Do you sometimes get pains in the calves of your legs when you walk? 8. NO - Do you or anyone in your family have previous history of blood clots? 9. NO - Do you or does anyone in your family have a serious bleeding problem such as prolonged bleeding following surgeries or cuts? 10. YES - HAVE YOU EVER HAD PROBLEMS WITH ANEMIA OR BEEN TOLD TO TAKE IRON PILLS? Iron pills 10. NO - Have you ever had problems with anemia or been told to take iron pills? 11. NO - Have you had any abnormal blood loss such as black, tarry or bloody stools, or abnormal vaginal bleeding? 12. NO - Have you ever had a blood transfusion? 13. NO - Have you or any of your relatives ever had problems with anesthesia? 14. YES - DO YOU HAVE SLEEP APNEA, EXCESSIVE SNORING OR DAYTIME DROWSINESS? Sleep apnea 14. NO - Do you have sleep apnea, excessive snoring or daytime drowsiness? 15. NO - Do you have any prosthetic heart valves? 16. NO - Do you have prosthetic joints? 17. NO - Is there any chance that you may be ? HPI: HPI related to upcoming procedure: cataract Pt notes weight is up 15 lbs since last visit on 01/16/2019 HYPERTENSION - Patient has longstanding history of HTN , currently denies any symptoms referable to elevated blood pressure. Specifically denies chest pain, palpitations, dyspnea, orthopnea, PND or peripheral edema. Blood pressure readings have been in normal range. Current medication regimen is as listed below. Patient denies any side effects of medication. MEDICAL HISTORY: Patient Active Problem List Diagnosis Date Noted ??? 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 embolism 05/30/2018 Priority: High 2 PE's. Had re-eval by Dr. kim in Heme/onc who recommended lifetime anticoagulation ??? Essential hypertension, benign 07/30/2003 Priority: High ??? Morbid obesity (H) 07/30/2003 Priority: High ??? Encounter for Medicare annual wellness exam 01/09/2019 Priority: Medium ??? Microscopic hematuria 01/09/2019 Priority: Medium ??? Transient confusion 01/09/2019 Priority: Medium ??? Injury of sciatic nerve 01/07/2019 Priority: Medium ??? Macular degeneration (senile) of retina 10/02/2018 Priority: Medium ??? Corneal epithelial and basement membrane dystrophy 10/02/2018 Priority: Medium ??? Nuclear sclerosis of both eyes 10/02/2018 Priority: Medium ??? Cortical age-related cataract, both eyes 10/02/2018 Priority: Medium ??? Adjustment reaction 11/07/2017 Priority: Medium ??? Pressure ulcer of ischium, left, stage IV (H) 10/29/2017 Priority: Medium ??? Physical deconditioning 10/29/2017 Priority: Medium ??? Lymphedema of both lower extremities 10/29/2017 Priority: Medium ??? long-term current use of 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 10/29/2013 Priority: Medium Problem list name updated by automated process. Provider to review ??? Pre-diabetes 11/23/2011 Priority: Medium ??? Cataract 07/15/2010 Priority: Medium ??? Myopia 07/15/2010 Priority: Medium ??? CEFERINO (obstructive sleep apnea) 09/05/2005 Priority: Medium Severe; on CPAP ??? Vitamin D deficiency 11/23/2011 Priority: Low (Problem list name updated by automated process. Provider to review and confirm.) ??? Eczema 10/06/2011 Priority: Low Derm at [facility] ??? Binge eating 07/10/2011 Priority: Low ??? [facility] 01/21/2011 Priority: Low EMERGENCY CARE PLAN Presenting Problem Signs and Symptoms Treatment Plan Questions or conerns during clinic hours I will call the clinic directly Questions or conerns outside clinic hours I will call the 24 hour nurse line at [phone] Patient needs to schedule an appointment I will call the 24 hour scheduling team at [phone] orclinic directly Same day treatment I will call the clinic first, nurse line if after hours, urgent care and expresscare if needed DX V65.8 REPLACED WITH [facility] (10/22/2012) ??? Dermatitis, stasis 08/12/2010 Priority: Low ??? CARDIOVASCULAR SCREENING; LDL GOAL LESS THAN 130 08/26/2009 Priority: Low Past Medical History: Diagnosis Date ??? BENIGN [...] History: Procedure Laterality Date ??? CHOLECYSTECTOMY, OPEN 1969 ??? COLONOSCOPY N/A 01/13/2015 Procedure: COLONOSCOPY; Surgeon: Jose Juan Castaneda MD; Location: OR ??? PHACOEMULSIFICATION CLEAR CORNEA WITH STANDARD INTRAOCULAR LENS IMPLANT Left 01/22/2019 Procedure: LEFT EYE CATARACT EXTRACTION WITH INTRAOCULAR LENS IMPLANTATION; Surgeon: Bernabe Crespo MD; Location: [facility] ? ? TONSILLECTOMY & ADENOIDECTOMY Current Outpatient Medications Medication Sig Dispense Refill ??? acetaminophen (TYLENOL) 325 MG tablet Take 325 mg by mouth daily as needed ??? ascorbic acid (VITAMIN C) 500 MG tablet Take 500 mg by mouth daily ??? atenolol (TENORMIN) 25 MG tablet Take 1 tablet (25 mg) by mouth 2 times daily 180 tablet 3 ??? Calcium Carb-Cholecalciferol (CALCIUM + D3) 600-200 [...] breakfast) 100 tablet 3 ??? furosemide (LASIX) 20 MG tablet Take 10 mg by mouth daily ??? hydrocortisone 2.5 % ointment Daily as needed 180 g 3 ??? losartan (COZAAR) 50 MG tablet Take 1 tablet (50 mg) by mouth daily 90 tablet 3 ??? Multiple Vitamins-Minerals (PRESERVISION/LUTEIN) CAPS Take 1 tablet by mouth 2 times daily ??? multivitamin w/minerals (THERA-VIT-M) tablet Take 1 tablet by mouth daily ??? nystatin (MYCOSTATIN) 620766 UNIT/GM external cream Apply topically daily as needed 0 ??? nystatin (MYCOSTATIN) 906533 UNIT/GM external powder Apply topically 2 times daily as needed ??? nystatin (NYSTOP) 871353 UNIT/GM external powder APPLY TOPICALLY TO THE AFFECTED AREA BENEATH BILATERAL BREAST/GROIN FOLDS TWICE DAILY UNTIL RESOLVED. 60 g 0 ??? WARFARIN SODIUM PO Take 13 mg by mouth On Mon, Thur ??? WARFARIN SODIUM PO Take 10 mg by mouth Tue, Wed, Fri, Sat, Sun OTC products: None, except as noted above Allergies Allergen Reactions ??? Cephalexin Hives Keflex - hives ??? Lanolin Other (See Comments) skin irritation ??? Lisinopril Cough ??? Neomycin Other (See Comments) skin irritation ??? Penicillins Hives ??? Bactroban [Mupirocin Calcium] Rash ??? Mupirocin Rash and Unknown Latex Allergy: NO Social History Tobacco Use ??? Smoking status: Never Smoker ??? Smokeless tobacco: Never Used Substance Use Topics ??? Alcohol use: No Frequency: Never History Drug Use No REVIEW OF SYSTEMS: CONSTITUTIONAL: NEGATIVE for fever, chills, POSITIVE for weight gain INTEGUMENTARY/SKIN: NEGATIVE for worrisome rashes, moles or lesions EYES: NEGATIVE for vision changes or irritation ENT/MOUTH: NEGATIVE for ear, mouth and throat problems RESP: NEGATIVE for significant cough or SOB BREAST: NEGATIVE for masses, tenderness or discharge CV: NEGATIVE for chest pain, palpitations or peripheral edema GI: NEGATIVE for nausea, abdominal pain, heartburn, or change in bowel habits : NEGATIVE for frequency, dysuria, or hematuria MUSCULOSKELETAL: NEGATIVE for significant arthralgias or myalgia NEURO: NEGATIVE for weakness, or paresthesias. POSITIVE for dizziness with sitting quickly ENDOCRINE: NEGATIVE for temperature intolerance, skin/hair changes HEME: NEGATIVE for bleeding problems PSYCHIATRIC: NEGATIVE for changes in mood or affect EXAM: BP 128/76 (BP Location: Right arm, Patient Position: Sitting, Cuff Size: Adult Regular) Pulse 83 Temp 98.6 ??F (37 ??C) (Oral) Ht 1.702 m (5' 7) Wt (!) 159 kg (350 lb 9.6 oz) SpO2 96% BMI 54.91 kg/m?? GENERAL APPEARANCE: healthy, alert and no distress EYES: EOMI, PERRL HENT: ear canals and TM's normal and nose and mouth without ulcers or lesions NECK: no adenopathy, no asymmetry, masses, or scars and thyroid normal to palpation RESP: lungs clear to auscultation - no rales, rhonchi or wheezes CV: regular rates and rhythm, normal S1 S2, no S3 or S4 and no murmur, click or rub ABDOMEN: soft, nontender, no HSM or masses and bowel sounds normal MS: extremities normal- no gross deformities noted, no evidence of inflammation in joints, FROM in all extremities. SKIN: no suspicious lesions or rashes NEURO: Normal strength and tone, sensory exam grossly normal, mentation intact and speech normal PSYCH: mentation appears normal. and affect normal/bright LYMPHATICS: No cervical adenopathy DIAGNOSTICS: No labs or EKG required for low risk surgery (cataract, skin procedure, breast biopsy, etc) Recent Labs Lab Test 01/29/19 1009 01/24/19 1423 01/09/19 1053 01/07/19 1508 12/26/18 1026 05/30/18 1612 01/03/17 1158 HGB -- -- -- -- -- 14.4 14.5 -- 12.6 < > 14.0 PLT -- -- -- -- -- 311 285 -- 321 < > 200 INR 2.9* 2.9* < > -- < > 2.25* -- < > -- < > -- NA -- -- -- 142 -- 137 140 -- 140 < > 140 POTASSIUM -- -- -- 4.0 -- 4.0 4.2 -- 4.0 < > 4.0 CR -- -- -- 0.55 -- 0.47* 0.50* -- 0.58 < > 0.66 A1C -- -- -- -- -- -- -- -- 5.6 -- 5.2 < > = values in this interval not displayed. IMPRESSION: Reason for surgery/procedure: cataract Diagnosis/reason for consult: pre op The proposed surgical procedure is considered LOW risk. REVISED CARDIAC RISK INDEX The patient has the following serious cardiovascular risks for perioperative complications such as (DC, PE, VFib and 3?? AV Block): No serious cardiac risks INTERPRETATION: 0 risks: Class I (very low risk - 0.4% complication rate) The patient has the following additional risks for perioperative complications: Morbid obesity Worsening lymphedema ICD-10-CM 1. Preop general physical exam Z01.818 2. Senile cataract, unspecified age-related cataract type, unspecified laterality H25.9 3. Lymphedema of both lower extremities I89.0 RECOMMENDATIONS: Worsening lymphedema and weight gain: No shortness of breath or cardiac symptoms to indicate CHF. Will increase lasix to 20mg daily x 5 days and have home health weigh her and draw bmp in 5 days. If there is significant electrolyte disturbance or significant worsening of kidney function we would need to correct these prior to surgery. --Patient is to take all scheduled medications on the day of surgery EXCEPT for modifications listedbelow. LONA Inhibitor or Angiotensin Receptor Kitty (ARB) Use No change due to very low risk surgery APPROVAL GIVEN to proceed with proposed procedure, pending electrolyte/ renal function evaluation on02/12/2019. Signed Electronically by: Lucero Stevenson MD Copy of this evaluation report is provided to requesting physician. Carmen Preop Guidelines Revised Cardiac Risk Index documented in this encounter Plan of Treatment Upcoming Encounters Date Type Specialty Care Team Description 11/15/2022 Virtual Visit Pharm Haylie Gonzalez, [facility] [address] [place] [address] (Lena max) 11/15/2022 Virtual Visit IM/Peds Yane Barraza MD [address] [facility] [place] [address] (Lena max) 03/03/2023 Virtual Visit Neurology Erlinda Barber MD [address] [facility] [address] [place] [address] (Lena max) documented as of this encounter Visit Diagnoses Diagnosis Preop general physical exam - Primary Other specified pre-operative examinatio n Senile cataract, unspecified age-related cataract type, unspecified laterality Lymphedema of both lower extremities documented in this encounter Care Teams Bee Rancher Relationship Specialty Start Date End Date Lucero Stevenson PCP - General Pediatrics 3/27/12 10/7/19 MD Annetta Chastity Montero MD Dermatology 09/23/14 [address] [facility] [address] [place], [place] [address] Johnnie Alcocer MD Surgeon General Surgery 03/23/17 [address] [facility] [address] [place], [place] [id number] Lucero Stevenson Assigned PCP 06/17/18 11/09/19 MD Annetta [address] [address] Danni Marcus, CHANDLER Personal Advocate & 01/09/1901/17 Liaison (PAL) documented as of this encounter
--- OUTSIDE RECORDS SUMMARY | 2022-06-15 13:06 | XMS_ITS | Encounter Summary ---
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 [address] [facility] [address] [place] [address] Social [...] documented as of this encounter Progress Notes Susie Murphy - 01/21/2019 1:00 PM CDT ANTICOAGULATION FOLLOW-UP CLINIC VISIT Patient Name: Charlette Brush Date: 01/21/2019 Contact Type: Telephone/ Yina Roger, SUBJECTIVE: Patient Findings Comments: Pt to have cataract surg tomorrow Clinical Outcomes Comments: Pt to have cataract surg tomorrow OBJECTIVE INR Date Value Ref Range Status 01/21/2019 3.2 (A) 0.9 - 1.1 Final ASSESSMENT / PLAN INR assessment SUPRA Recheck INR In: 3 DAYS INR Location Homecare INR Anticoagulation Summary As of 01/21/2019 INR goal: 2.0-3.0 TTR: 79.5 % (3.3 y) INR used for dosin.2! 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 Susie Murphy RN documented in this encounter Plan of Treatment Upcoming Encounters Date Type Specialty Care Team Description 11/15/2022 Virtual Visit Pharm D Haylie Cheung, [facility] [address] [facility] [place] [address] (Wo rk) 11/15/2022 Virtual Visit IM/Peds Yane Barraza MD [address] [facility] [place] [address] (Wo rk) 03/03/2023 Virtual Visit Neurology Erlinda Barber MD [address] [facility] [address] [place] [address] (Wo rk) documented as of this encounter Procedures Procedure Name Priority Date/Time Associated Diagnosis Comme nts INR Routine 01/21/2019 Results for thi s procedure are in the resu lts section. documented in this encounter Results (ABNORMAL) INR (01/21/2019) P athologist Signature INR 3.2 (A) 0.9 - 1.1 EXTERNAL LAB Specimen (Source) Anatomical Location Collection Method / Collectio n Time Received Time / Laterality Volume Blood specimen 01/21/2019 (specimen) Lucero Stevenson MD LAB - BLOOD ORDERABLES Performing Organization Address City/State/ZIP Code Phon e Number EXTERNAL LAB EXTERNAL LAB External Lab documented in this encounter Visit Diagnoses Diagnosis 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 embolism long-term current use of anticoagulant t herapy documented in this encounter Care Teams Mascara Molder Relationship Specialty Start Date End Date Lucero Stevenson PCP - General Pediatrics 10/11/11 04/22/19 MD Annetta Chastity Montero MD Dermatology 09/23/14 [address] [facility] [address] [place] [address] Johnnie Alcocer MD Surgeon General Surgery 03/23/17 [address] [facility] [address] [place], [place] [address] Lucero Stevenson Assigned PCP 06/17/18 11/09/19 MD TOÑO Little[facility] [address] [place] [address] Danni Marcus, CHANDLER Personal Advocate & 01/09/1901/17 Liaison (PAL) documented as of this encounter
--- OUTSIDE RECORDS SUMMARY | 2022-06-15 13:06 | XMS_ITS | Encounter Summary ---
:1945 Author Organization [place] Address [address] [place] [address] Care Team Providers Name Role Phone Lucero Stevenson MD Primary Care Provider [phone] Chastity Montero MD Unavailable [phone] Johnnie Alcocer MD Unavailable Lucero Stevenson MD Unavailable [phone] Danni Marcus RN Unavailable Unavailable Reason for Visit Reason Onset Date Comments Home Care/Hospice 01/30/2019 patient update Encounter Details Date Type Department Care Team Description 01/30/2019 Telephone [facility] Lucero Stevenson Home Care/Hospice Clinic Yarelis Littlejohn MD (patient update) [address] [place] [address] [place] [address] [phone] Social History Tobacco Use Types Packs/Day Years [...] Telephone Encounter - Danni Marcus RN - 01/31/2019 10:23 AM CDT I spoke with patient and she states that she feels much better. Chills are not constant, most of the time she doesn't have chills. Has gone for a walk outside this am. Doesn't feel that she has a UTI. Will monitor symptoms, and will call us back if symptoms worsen. Appointment scheduled for 02/06 for pre-op exam. Ashli Marcus RN Telephone Encounter - Lucero Stevenson MD - 01/30/2019 8:18 PM CDT Sounds good. She can leave a urine if she would like to be sure that is not the issue. Home care cancollect it at home. Lucero Stevenson MD Telephone Encounter - Danni Marcus RN - 01/30/2019 4:58 PM CDT Update forwarded to provider for review. I will call patient tomorrow to check on status. Ashli Marcus RN Telephone Encounter - Prudence Alas - 01/30/2019 4:24 PM CDT Michelle calling to report/update as LENNY Ovalles slipped and fell last night. Patient reports still not feeling 100% but cannot quite put herfinger on what it is exactly. Still not quite stable on her feet, a little chilled today but no fever and not dizzy. Michelle didn't feel she needed to be seen in office but wanted to update. documented in this encounter Plan of Treatment Upcoming Encounters Date Type Specialty Care Team Description 11/15/2022 Virtual Visit Haylie Wakefield, [facility] [address] [place] [place] [address] (Wo rk) 11/15/2022 Virtual Visit IM/Peds Yane Barraza MD [address] [facility] [address] (Wo rk) 03/03/2023 Virtual Visit Neurology Erlinda Barber MD [address] [place] [address] [address] [place], [place] [address] (Wo rk) documented as of this encounter Visit Diagnoses Not on filedocumented in this encounter Care Teams Urologist Md Relationship Specialty Start Date End Date Lucero Stevenson PCP - General Pediatrics 10/11/11 04/22/19 MD Annetta Chastity Montero MD Dermatology 09/23/[address] [place] [address] 98 [place], [place] [address] Johnnie Alcocer MD Surgeon General Surgery 03/23/17 [address] [facility] [address] [place] [address] Lucero Stevenson Assigned PCP 06/17/18 11/09/19 MD TOÑO Littlejohn [facility] [address] [place], [place] [id number] Danni Marcus, RN Personal Advocate & 01/09/1901/17 Liaison (PAL) documented as of this encounter
--- OUTSIDE RECORDS SUMMARY | 2022-06-15 13:06 | XMS_ITS | Encounter Summary ---
:1945 Author Organization [place] Address [facility] [place] [address] Care Team Providers Name Role Phone Lucero Stevenson MD Primary Care Provider [phone] Chastity Montero MD Unavailable [phone] Johnnie Alcocer MD Unavailable Lucero Stevenson MD Unavailable Danni Marcus RN Unavailable Unavailable Reason for Visit Reason Comments Home Care/Hospice Encounter Details Date Type Department Care Team Description 01/15/[address] [facility] Lavern Stevenson [facility] Yarelis Littlejohn MD [address] [facility] [address] [facility] [address] Yarelis [place], [place] [phone] Social History Tobacco Use Types Packs/Day Years [...] documented as of this encounter Progress Notes Bel Delgadillo RN - 01/15/2019 2:33 PM CDT Called pt this afternoon and pt decided to continue with [facility] as she stated she has a lot going on and they have been accommodating as she is having cataract surgery coming up and wants tonot make any changes currently. Told her to let us know if she changes her mind in the future. Lucero Stevenson MD - 01/15/2019 2:33 PM CDT Noted, thanks! Lucero Stevenson MD documented in this encounter Plan of Treatment Upcoming Encounters Date Type Specialty Care Team Description 11/15/2022 Virtual Visit Pharm Haylie Gonzalez, [facility] [address] [facility] [place] [address] (Wo rk) 11/15/2022 Virtual Visit IM/Peds Yane Barraza MD [address] [facility] [place] [address] (Wo winter) 03/03/2023 Virtual Visit Neurology Erlinda Barber MD [address] [facility] 295 [place] [address] (Wo rk) documented as of this encounter Visit Diagnoses Not on filedocumented in this encounter Care Teams Manager Furniture Relationship Specialty Start Date End Date Lucero Stevenson PCP - General Pediatrics 10/11/11 04/22/19 MD Annetta Chastity Montero MD Dermatology 09/23/14 [address] [facility] 98 [place], [place] [address] Johnnie Alcocer MD Surgeon General Surgery 03/23/17 [address] [facility] 300 [place], [place] [phone] Lucero Stevenson Assigned PCP 06/17/18 11/09/19 MD Annetta [facility] 8675 [place], [place] [phone] Danni Marcus, CHANDLER Personal Advocate & 01/09/1901/17 Liaison (PAL) documented as of this encounter
--- OUTSIDE RECORDS SUMMARY | 2022-06-15 13:06 | XMS_ITS | Encounter Summary ---
:1945 Author Organization [place] Address [address] [place] [address] Care Team Providers Name Role Phone Lucero Stevenson MD Primary Care Provider [phone] Chastity Montero MD Unavailable [phone] Johnnie Alcocer MD Unavailable Lucero Stevenson MD Unavailable [phone] Danni Marcus RN Unavailable Unavailable Encounter Details Date Type Department Care Team Description 01/15/2019 Travel Social History Tobacco Use Types Packs/Day [...] Haylie Gonzalez, [facility] [address] [facility] [place] [address] (Wo rk) 11/15/2022 Virtual Visit IM/Peds Yane Barraza MD [address] [facility] [address] [place] [phone] (Wo rk) 03/03/2023 Virtual Visit Neurology Erlinda Barber MD 420 [facility] 295 [place], [place] [phone] (Wo rk) documented as of this encounter Visit Diagnoses Not on filedocumented in this encounter Care Teams Professor Of Business Administration Relationship Specialty Start Date End Date Lucero Stevenson PCP - General Pediatrics 10/11/11 04/22/19 MD Annetta Chastity Montero MD Dermatology 09/23/14 420 [facility] 98 [place], [place] [phone] Johnnie Alcocer MD Surgeon General Surgery 03/23/[address] [place], [place] [address] Lucero Stevenson Assigned PCP 06/17/18 11/09/19 MD TOÑO Littlejohn [place] 8675 [place], [place] [phone] Danni Marcus, CHANDLER Personal Advocate & 01/09/1901/17 Liaison (PAL) documented as of this encounter
--- OUTSIDE RECORDS SUMMARY | 2022-06-15 13:06 | XMS_ITS | Encounter Summary ---
:1945 Author Organization [place] Address [address] [place] [address] Care Team Providers Name Role Phone Lucero Stevenson MD Primary Care Provider [phone] Chastity Montero MD Unavailable [phone] Johnnie Alcocer MD Unavailable Lucero Stevenson MD Unavailable [phone] Danni Marcus RN Unavailable Unavailable Encounter Details Date Type Department Care Team Description 01/16/2019 Travel Social History Tobacco Use Types Packs/Day [...] [facility] [address] [place] [address] (Wo rk) 11/15/2022 Virtual Visit IM/Peds Yane Barraza MD [address] [facility] [address] [place] [phone] (Wo rk) 03/03/2023 Virtual Visit Neurology Erlinda Barber MD 420 [facility] 295 [place], [place] [phone] (Wo rk) documented as of this encounter Visit Diagnoses Not on filedocumented in this encounter Care Teams Car Washer Relationship Specialty Start Date End Date Lucero Stevenson PCP - General Pediatrics 10/11/11 04/22/19 MD Annetta Chastity Montero MD Dermatology 09/23/14 420 [facility] 98 [place], [place] [phone] Johnnie Alcocer MD Surgeon General Surgery 03/23/[address] [place], [place] [address] Lucero Stevenson Assigned PCP 06/17/18 11/09/19 MD TOÑO Littlejohn [place] 8675 [place], [place] [phone] Danni Marcus, CHANDLER Personal Advocate & 01/09/1901/17 Liaison (PAL) documented as of this encounter
--- OUTSIDE RECORDS SUMMARY | 2022-06-15 13:06 | XMS_ITS | Encounter Summary ---
:1945 Author Organization [place] Address [facility] [place] [address] Care Team Providers Name Role Phone Lucero Stevenson MD Primary Care Provider [phone] Chastity Montero MD Unavailable [phone] Johnnie Alcocer MD Unavailable Lucero Stevenson MD Unavailable [phone] Danni Marcus RN Unavailable Unavailable Reason for Visit Reason Comments Home Care/Hospice Encounter Details Date Type Department Care Team Description 01/10/2019 Documentation Only [facility] Lavern Stevenson Home [facility]ice Clinic Yarelis Littlejohn MD 4[address] [facility] 8675 [facility] [address] [place], [place] [phone] Social History Tobacco Use Types Packs/Day Years [...] encounter Progress Notes Bel Delgadillo RN - 01/10/2019 10:11 AM CDT Spoke to pt as well as her home care nurse from [facility]. Her halfway care insurance is covering the TOOL STORAGE ATTENDANT daily for 3hrs a day and that would not change if she switched to [facility] home care. She wouldstill be able to get everything she is currently getting from [facility] if she switched. Pt stated she wanted to think about making the switch and RN will call her early next week to see her thoughts. Pt agreed to this plan. Will continue to keep you in the loop! Lucero Stevenson MD - 01/10/2019 10:11 AM CDT Thank you! Lucero Stevenson MD documented in this encounter Plan of Treatment Upcoming Encounters Date Type Specialty Care Team Description 11/15/2022 Virtual Visit Pharm D Haylie Cheung, [facility] 14[address] [facility] [place] [address] (Lena max) 11/15/2022 Virtual Visit IM/Peds Yane Barraza MD [address] [facility] [place] [address] (Lena max) 03/03/2023 Virtual Visit Neurology Erlinda Barber MD 420 [facility] 295 [place] [address] (Wo rk) documented as of this encounter Visit Diagnoses Not on filedocumented in this encounter Care Teams Dredge Worker Relationship Specialty Start Date End Date Lucero Stevenson PCP - General Pediatrics 10/11/11 04/22/19 MD Annetta Chastity Montero MD Dermatology 09/23/[address] [place] [address] [facility] 98 [place], [place] [address] Johnnie Alcocer MD Surgeon General Surgery 03/23/17 [address] [facility] [address] [place], [place] [address] Lucero Stevenson Assigned PCP 06/17/18 11/09/19 MD Annetta [address] [phone] Danni Marcus, CHANDLER Personal Advocate & 01/09/1901/17 Liaison (PAL) documented as of this encounter
--- OUTSIDE RECORDS SUMMARY | 2022-06-15 13:06 | XMS_ITS | Encounter Summary ---
:1945 Author Organization [place] Address [address] [place] [address] Care Team Providers Name Role Phone Lucero Stevenson MD Primary Care Provider [phone] Chastity Montero MD Unavailable [phone] Johnnie Alcocer MD Unavailable Lucero Stevenson MD Unavailable [phone] Danni Marcus RN Unavailable Unavailable Encounter Details Date Type Department Care Team Description 01/22/2019 Anesthesia Event [facility] Harpreet No, [place] ANESTHESIA [address] [place] [place] [phone] [place] [facility] Martine Sadler, INTERNET ASSESSOR DIGITAL MARKETING ANALYST [address] [address] Services [address] Littlejohn, [address] [place] [phone] Anesthesia Record Procedure Summary Procedure Name Responsible Anesthesia Start Anesthesia Stop Anesthesiologist Time Time LEFT EYE CATARACT Kendall No, 01/22/19 1121 07/0 04/04 1152 EXTRACTION WITH DO INTRAOCULAR LENS IMPLANTATION (Left: Eye) Events Date Time Event Comment 01/22/2019 1041 1121 An Start 1122 An Start Data 1130 AN INCISION 1146 an stop data 1152 An Stop Electronically s igned by Martine Sadler on January 22, 2019 11:52 AM Name Total midazolam 1mg/mL 0.5 mg No abx ordered pre-op 1 each dexmedetomidine (PRECEDEX) 4 mcg/mL bolus 8 mcg lactated ringers infusion 0 mL Agents Name NO HELIOX O2 N2O Air Exp Sevoflurane Exp Isoflurane Exp Desflurane Exp N2O O2 Delivery Device Ins Sevoflurane Ins Isoflurane Ins Desflurane O2 Auxiliary Blood No blood administrations on file. Lines, Drains, and Airways Type Details Placement Removal Wound (used by OP [facility] 08/08/18; 1325; Left; 08/08/18 1325 by only) pressure injury Janie Stanford, CHANDLER (Retired) Pressure 01/07/19; 1940; 01/07/19 1940 by Injury Sacrum; Yes Mike Peña RN Peripheral IV 01/22/19; 1030; 22 G; 01/22/19 1030 by 01/22/19 1220 by Left; Upper forearm; Hilda Chairez RN Vanne lli, Jodie, RN Chlorhexidine; None; Tolerated well Incision/Surgical Site 01/22/19; 1141; Left; 01/22/19 1141 by 1252 by Eye; 02/20/19; 1252 College, CHANDLRE Haile Stacy M RN documented in this encounter Social History Tobacco [...] encounter OR Notes Anesthesia Postprocedure Evaluation - Kendall No DO - 01/22/2019 3:52 PM CDT Patient: Charlette Brush Procedure(s): LEFT EYE CATARACT EXTRACTION WITH INTRAOCULAR LENS IMPLANTATION Diagnosis:NUCLEAR SCLEROSIS CATARACT Diagnosis Additional Information: No value filed. Anesthesia Type: MAC Note: Anesthesia Post Evaluation Patient location during evaluation: bedside Patient participation: Able to fully participate in evaluation Level of consciousness: awake Pain management: adequate Airway patency: patent Cardiovascular status: acceptable Respiratory status: acceptable Hydration status: acceptable PONV: none Anesthetic complications: None Last vitals: Vitals: 01/22/19 1014 01/22/19 1149 01/22/19 1217 BP: 157/87 140/83 138/85 Resp: 16 16 16 Temp: 36.4 ??C (97.5 ??F) SpO2: 98% 100% 100% Electronically Signed By: Kendall No DO, DO January 22, 2019 3:52 PM Anesthesia Preprocedure Evaluation - Kendall No DO - 01/22/2019 10:39 AM CDT Anesthesia Pre-Procedure Evaluation Patient: Charlette Brush : 1945 Preoperative Diagnosis: NUCLEAR SCLEROSIS CATARACT Procedure(s): LEFT EYE PHACOEMULSIFICATION, CLEAR CORNEA WITH STANDARD LENS [...] Jose Juan Castaneda MD; Location: [facility] OR ? ? TONSILLECTOMY & ADENOIDECTOMY Anesthesia Evaluation . ROS/MED HX ENT/Pulmonary: (+)sleep apnea, uses CPAP , . . Neurologic: Cardiovascular: (+) hypertension----. Taking blood thinners : . . . :. . METS/Exercise Tolerance: Hematologic: (+) History of blood clots pt is anticoagulated, - Musculoskeletal: GI/Hepatic: (+) GERD Asymptomatic on medication, Renal/Genitourinary: Endo: (+) Obesity, . Psychiatric: - neg psychiatric ROS Infectious Disease: Malignancy: Other: Physical Exam Normal systems: cardiovascular and pulmonary Airway Mallampati: III TM distance: >3 FB Neck ROM: limited Dental Cardiovascular Pulmonary Lab Results Component Value Date WBC 8.4 01/07/2019 HGB 14.4 01/07/2019 HCT 43.5 01/07/2019 PLT 311 01/07/2019 CRP 15.1 (H) 05/16/2018 SED 37 (H) 05/16/2018 NA 142 01/09/2019 POTASSIUM 4.0 01/09/2019 CHLORIDE 109 01/09/2019 CO2 23 01/09/2019 BUN 20 01/09/2019 CR 0.55 01/09/2019 GLC 89 01/09/2019 TOMA 8.9 01/09/2019 PHOS 2.5 10/28/2017 MAG 1.8 10/28/2017 ALBUMIN 3.1 (L) 01/09/2019 PROTTOTAL 7.5 01/09/2019 ALT 24 01/09/2019 AST 23 01/09/2019 ALKPHOS 102 01/09/2019 BILITOTAL 0.6 01/09/2019 LIPASE 148 05/31/2011 AMYLASE 66 05/31/2011 PTT 46 (H) 10/28/2017 INR 3.2 (A) 01/21/2019 TSH 1.19 10/08/2007 Preop Vitals BP Readings from Last 3 Encounters: 01/22/19 157/87 01/16/19 134/82 01/09/19 138/81 Pulse Readings from Last 3 Encounters: 01/16/19 82 01/09/19 85 01/07/19 84 Resp Readings from Last 3 Encounters: 01/22/19 16 01/16/19 16 01/08/19 20 SpO2 Readings from Last 3 Encounters: 01/22/19 98% 01/16/19 95% 01/09/19 94% Temp Readings from Last 1 Encounters: 01/22/19 36.4 ??C (97.5 ??F) (Temporal) Ht Readings from Last 1 Encounters: 01/16/19 1.702 m (5' 7) Wt Readings from Last 1 Encounters: 01/16/19 (!) 152 kg (335 lb) Estimated body mass index is 52.47 kg/m?? as calculated from the following: Height as of 01/16/19: 1.702 m (5' 7). Weight as of 01/16/19: 152 kg (335 lb). Anesthesia Plan History & Physical Review History and physical reviewed and following examination; no interval change. ASA Status: 3 . NPO Status: > 8 hours Plan for MAC Reason for MAC: Procedure to face, neck, head or breast PONV prophylaxis: Ondansetron (or other 5HT-3) Postoperative Care Postoperative pain management: IV analgesics. Consents Anesthetic plan, risks, benefits and alternatives discussed with: Patient.. Kendall No DO, DO documented in this encounter Miscellaneous Notes Anesthesia Care Transfer Note - Martine Sadler APRN DIGITAL MARKETING ANALYST - 01/22/2019 11:51 AM CDT Patient: Charlette Brush Procedure(s): LEFT EYE CATARACT EXTRACTION WITH INTRAOCULAR LENS IMPLANTATION Diagnosis: NUCLEAR SCLEROSIS CATARACT Diagnosis Additional Information: No value filed. Anesthesia Type: MAC Note: Airway :Room Air Patient transferred to:Phase II Comments: [facility] in recliner with armrests up, spontaneous respirations, O2 saturation maintained greater than 95% with oxygen via room air. All monitors and alarms on and functioning, clinically stable vital signs. Report given to die attacher and questions answered. Patient alert and following verbal directions.Handoff Report: Identifed the Patient, Identified the Reponsible Provider, Reviewed the pertinent medical history, Discussed the surgical course, Reviewed Intra-OP anesthesia mangement and issues during anesthesia, Set expectations for post-procedure period and Allowed opportunity for questions and acknowledgement of understanding Vitals: (Last set prior to Anesthesia Care Transfer) DIGITAL MARKETING ANALYST VITALS 01/22/2019 1116 - 01/22/2019 1151 01/22/2019 Resp Rate (set): 10 Electronically Signed By: Martine Sadler APRN DIGITAL MARKETING ANALYST January 22, 2019 11:51 AM documented in this encounter Plan of Treatment Upcoming Encounters Date Type Specialty Care Team Description 11/15/2022 Virtual Visit Pharm D Haylei Cheung, [facility] 14[address] [facility] [place] [phone] (Wo rk) 11/15/2022 Virtual Visit [place] [address] [place] [address] [place] [phone] (Wo rk) 03/03/2023 Virtual Visit Neurology Erlinda Barber MD 420 [facility] 295 [place], [place] [phone] (Wo rk) documented as of this encounter Visit Diagnoses Not on filedocumented in this encounter Administered Medications Inactive Administered Medications - up to 3 most recent administrations Medication Order MAR Action Action Date Dose Rate Site dexmedetomidine (PRECEDEX) 4 New Bag 01/22/2019 11:25 AM CDT 8 mcg mcg/mL bolus CONTINUOUS PRN, Starting on Mon01/22/19 at 1125, Anesthesia Intra-op midazolam (VERSED) injection Given 01/22/2019 11:25 AM CDT 0.5 mg Administer over 2 Minutes, PRN, Starting on Mon01/22/19 at 1125, Anesthesia Intra-op PRE OP antibiotics NOT needed for this Given 01/22/2019 11:27 AM CDT 1 each surgical procedure PRN, Starting on Mon01/22/19 at 1127, Until Mon01/22/19 at 1152, Anesthesia Intra-op documented in this encounter Care Teams Order Puller Relationship Specialty Start Date End Date Lucero Stevenson PCP - General Pediatrics 10/11/11 04/22/19 MD Annetta Chastity Montero MD Dermatology 09/23/14 420 [facility] 98 [place] [address] Johnnie Alcocer MD Surgeon General Surgery 03/23/17 [address] [facility] 300 [place] [address] Lucero Stevenson Assigned PCP 06/17/18 11/09/[address] MD Annetta [address] [address] Danni Marcus, CHANDLER Personal Advocate & 01/09/1901/17 Liaison (PAL) documented as of this encounter
--- OUTSIDE RECORDS SUMMARY | 2022-06-15 13:06 | XMS_ITS | Encounter Summary ---
:1945 Author Organization [place] Address [address] [place] [address] Care Team Providers Name Role Phone Lucero Stevenson MD Primary Care Provider [phone] Chastity Montero MD Unavailable [phone] Johnnie Alcocer MD Unavailable Lucero Stevenson MD Unavailable [phone] Danni Marcus RN Unavailable Unavailable Reason for Visit Reason Onset Date Comments Refill Request 01/20/2019 nystatin (MYCOSTATIN ) [id number] UNIT/GM external cream Encounter Details Date Type Department Care Team Description 01/20/2019 Refill M [facility] Lucero Stevensoni ll Request Clinic Yarelis Littlejohn MD (nystatin (MYCOSTATIN) [address] [facility] Y 312241 UNIT/GM external [facility] [address] [place] [address] RD cream) [address] [place] [address] [place] [address] [phone] Social History Tobacco Use Types Packs/Day Years [...] 05/03/2021 organizations such as pentecostalism groups, unions, fraRealm or athletic groups, or school groups? How [...] encounter Miscellaneous Notes Telephone Encounter - Yanet Marshall RN - 01/21/2019 11:54 AM CDT Routing refill request to provider for review/approval because: Medication is reported/historical on medication list. YANN Soto, RN Telephone Encounter - Latia Myers - 01/20/2019 1:38 PM CDT Requested Prescriptions Pending Prescriptions Disp Refills ??? nystatin (NYSTOP) [id number] UNIT/GM external powder [Pharmacy Med Name: NYSTOP 100,000 U/GM TOP POWDER 30GM] 60 g 0 Sig: APPLY TOPICALLY TO THE AFFECTED AREA BENEATH BILATERAL BREAST/GROIN FOLDS TWICE DAILY UNTIL RESOLVED. Last Written Prescription Date: 04/26/2018 Last Fill Quantity: unknown, # refills: 0 Last office visit: 01/09/2019 with prescribing provider: Lucero Stevenson MD Future Office Visit: Antifungal Agents Passed - 01/20/2019 5:50 AM Passed - Recent (12 mo) or future (30 days) visit within the authorizing provider's specialty Patient had office visit in the last 12 months or has a visit in the next 30 days with authorizing provider or within the authorizing provider's specialty. See Patient Info tab in inbasket, or Choose Columns in Meds & Orders section of the refill encounter. Passed - Not Fluconazole or Terconazole If oral Fluconazole or Terconazole, may refill if indicated in progress notes. Passed - Medication is active on med list Routing refill request to provider for review/approval because: Medication is reported/historical documented in this encounter Plan of Treatment Upcoming Encounters Date Type Specialty Care Team Description 11/15/2022 Virtual Visit Pharm Haylie Gonzalez, [facility] [address] [facility] [place] [address] (Wo rk) 11/15/2022 Virtual Visit IM/Peds Yane Barraza MD [address] [facility] [address] (Wo rk) 03/03/2023 Virtual Visit Neurology Erlinda Barber MD 420 [facility] 295 [place], [place] [address] (Wo rk) documented as of this encounter Visit Diagnoses Diagnosis Pressure ulcer of ischium, left, stage I V (H) documented in this encounter Care Teams Fire Equipment Inspector Relationship Specialty Start Date End Date Luecro Stevenson PCP - General Pediatrics 10/11/11 04/22/19 MD Annetta Chastity Montero MD Dermatology 09/23/[address] [place] [address] 98 [place], [place] [address] Johnnie Alcocer MD Surgeon General Surgery 03/23/[address] [place], [place] [address] Lucero Stevenson Assigned PCP 06/17/18 11/09/19 MD TOÑO Littlejohn [address]75 [place], [place] [phone] Danni Marcus, CHANDLER Personal Advocate & 01/09/1901/17 Liaison (PAL) documented as of this encounter
--- OUTSIDE RECORDS SUMMARY | 2022-06-15 13:06 | XMS_ITS | Encounter Summary ---
:1945 Author Organization [place] Address [facility] [place] [address] Care Team Providers Name Role Phone Lucero Stevenson MD Primary Care Provider [phone] Chastity Montero MD Unavailable [phone] Johnnie Alcocer MD Unavailable Lucero Stevenson MD Unavailable [phone] Danni Marcus RN Unavailable Unavailable Reason for Visit Reason Comments Pre-Op Exam left cataract 01/21/19 Encounter Details Date Type Department Care Team Description 01/16/2019 Office Visit [facility] Genia Culver eneral physical exam (Primary Dx); [facility] [place] Jodee Winkler MD Morbid obesity (H) [address] [place] [phone] Social History Tobacco Use Types Packs/Day Years [...] Sign Reading Time Taken Comments Blood Pressure 134/82 01/16/2019 12:47 PM CDT Pulse 82 01/16/2019 12:47 PM CDT Temperature 36.3 ??C (97.4 ??F) 01/16/2019 12:47 PM CDT Respiratory Rate 16 01/16/2019 12:47 PM CDT Oxygen Saturation 95% 01/16/2019 12:47 PM CDT Inhaled Oxygen Concentration - - Weight 152 kg (335 lb) 01/16/2019 12:47 PM CDT Height 170.2 cm (5' 7) 01/16/2019 12:47 PM CDT Body Mass Index 52.47 01/16/2019 12:47 PM CDT documented in this encounter Patient Instructions Patient InstructionsMonse Dugan MA - 01/16/2019 1:05 PM CDT Before Your Surgery ??? Call your surgeon [...] and have clean sheets on your bed. Before Your Surgery Call your surgeon if there is any change in your health. This includes signs of a cold or flu (such as a sore throat, runny nose, cough, rash or fever). Do not smoke, drink alcohol or take over the counter medicine (unless your surgeon or primary care doctor tells you to) for the 24 hours before and after surgery. If you take prescribed drugs: Follow your doctor???s orders about which medicines to take and which to stop until after surgery. Eating and drinking prior to surgery: follow the instructions from your surgeon Take a shower or bath the night before surgery. Use the soap your surgeon gave you to gently clean your skin. If you do not have soap from your surgeon, use your regular soap. Do not shave or scrub thesurgery site. Wear clean pajamas and have clean sheets on your bed. documented in this encounter Progress Notes Jodee Culver MD - 01/16/2019 1:05 PM [address] [id number] Dept: [phone] PRE-OP EVALUATION: Today's date: 01/16/2019 Charlette Velma Brush (: 1945) presents for pre-operative evaluation assessment as requested by - [facility] . She requires evaluation and anesthesia risk assessment prior to undergoing surgery/procedure for treatment of Left Cataract . Fax number for surgical facility: [phone] Primary Physician: Lucero Stevenson Type of Anesthesia Anticipated: General Patient has a Health Care Directive or Living Will: Preop Questions 01/16/2019 1. Do you have a history of Heart attack, stroke, stent, coronary bypass surgery, or other heart surgery? No 2. Do you ever have any pain or discomfort in your chest? No 3. Do you have a history of Heart Failure? No 4. Are you troubled by shortness of breath when: walking on a level surface, or up a slight hill, orat night? No 5. Do you currently have a cold, bronchitis or other respiratory infection? No HPI: HPI related to upcoming procedure: cataracts Per patient no known date at this time as she will need to have procedure inpatient due to her weight. See problem list for active medical problems. Problems all longstanding and stable, except as noted/documented. See ROS for pertinent symptoms related to these conditions. MEDICAL HISTORY: Patient Active Problem List Diagnosis [...] both lower extremities 10/29/2017 Priority: Medium ??? [facility] current use of 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 10/29/2013 Priority: [...] Binge eating 07/10/2011 Priority: Low ??? [facility] 01/21/2011 Priority: Low EMERGENCY CARE PLAN Presenting Problem Signs and Symptoms Treatment Plan Questions or conerns during clinic hours I will call the clinic directly Questions or conerns outside clinic hours I will call the 24 hour nurse line at [phone] Patient needs to schedule an appointment I will call the 24 hour scheduling team at [phone] orclinic directly Same day treatment I will call the clinic first, nurse line if after hours, urgent care and expresscare if needed DX V65.8 REPLACED WITH [id number] [facility] (10/22/2012) ??? Dermatitis, stasis 08/12/2010 Priority: Low ??? CARDIOVASCULAR SCREENING; LDL GOAL LESS THAN 130 08/26/2009 Priority: Low Past Medical History: Diagnosis Date ??? BENIGN HYPERTENSION 07/30/2003 ??? benign positional vertigo 09/08/2004 s/p canolith repositioning 07/21 ??? Coagulation disorder (H) Pulmonary embolism 2001 ??? GERD (gastroesophageal reflux disease) ??? CEFERINO (obstructive sleep apnea) nightly CPAP [...] RH OR ? ? TONSILLECTOMY & ADENOIDECTOMY Current Outpatient [...] tablet by mouth daily ??? nystatin (MYCOSTATIN) 096905 UNIT/GM external cream Apply topically daily as needed 0 ??? nystatin (MYCOSTATIN) 810417 UNIT/GM external powder Apply topically 2 times daily as needed ??? WARFARIN SODIUM PO Take 13 mg by mouth On Mon, ??? WARFARIN SODIUM PO Take 10 mg by mouth Tue, Mon, Fri, Sat, Sun OTC products: no recent use of OTC ASA, NSAIDS or Steroids Allergies Allergen Reactions ??? Cephalexin Hives Keflex [...] History Drug Use No REVIEW OF SYSTEMS: Constitutional, neuro, ENT, endocrine, pulmonary, cardiac, gastrointestinal, genitourinary, musculoskeletal, integument and psychiatric systems are negative, except as otherwise noted. EXAM: BP 134/82 (BP Location: Right arm, Patient Position: Chair, Cuff Size: Adult Large) Pulse 82 Temp 97.4 ??F (36.3 ??C) (Oral) Resp 16 Ht 1.702 m (5' 7) Wt (!) 152 kg (335 lb) SpO2 95% ? No BMI 52.47 kg/m?? GENERAL APPEARANCE: morbidly obese, no distress EYES: EOMI, PERRL HENT: ear canals and TM's normal and nose and mouth without ulcers or lesions NECK: no adenopathy, no asymmetry, masses, or scars and thyroid normal to palpation RESP: lungs clear to auscultation - no rales, rhonchi or wheezes CV: regular rates and rhythm, normal S1 S2 ABDOMEN: soft, nontender, no HSM or masses and bowel sounds normal MS: b/l LE edema SKIN: no suspicious lesions or rashes NEURO: Normal strength and tone, sensory exam grossly normal, mentation intact and speech normal PSYCH: mentation appears normal. and affect normal/bright DIAGNOSTICS: No labs or EKG required for low risk surgery (cataract, skin procedure, breast biopsy, etc) Recent Labs Lab Test 01/10/19 1357 01/09/19 1053 01/08/19 0652 01/07/19 1508 12/26/18 1026 05/30/18 1612 01/03/17 1158 HGB -- -- -- 14.4 14.5 -- 12.6 < > 14.0 PLT -- -- -- 311 285 -- 321 < > 200 INR 3.8* -- 2.37* 2.25* -- < > -- < > -- NA -- 142 -- 137 140 -- 140 < > 140 POTASSIUM -- 4.0 -- 4.0 4.2 -- 4.0 < > 4.0 CR -- 0.55 -- 0.47* 0.50* -- 0.58 < > 0.66 A1C -- -- -- -- -- -- 5.6 -- 5.2 < > = values in this interval not displayed. IMPRESSION: Reason for surgery/procedure: Cataracts Diagnosis/reason for consult: Pre-operative consult The proposed surgical procedure is considered INTERMEDIATE risk. REVISED CARDIAC RISK INDEX The patient has the following serious cardiovascular risks for perioperative complications such as (WA, PE, VFib and 3?? AV Block): No serious cardiac risks INTERPRETATION: 1 risks: Class II (low risk - 0.9% complication rate) The patient has the following additional risks for perioperative complications: Morbid obesity ICD-10-CM 1. Preop general physical exam Z01.818 2. Morbid obesity (H) E66.01 RECOMMENDATIONS: --Consult hospital rounder / IM to assist post-op medical management -- INR to be checked next week prior to surgery. APPROVAL GIVEN to proceed with proposed procedure, without further diagnostic evaluation Signed Electronically by: Jodee Culver MD Copy of this evaluation report is provided to requesting physician. Carmen Preop Guidelines Revised Cardiac Risk Index documented in this encounter Plan of Treatment Upcoming Encounters Date Type Specialty Care Team Description 11/15/2022 Virtual Visit Pharm Haylie Gonzalez, [facility] [address] [place] [phone] (Wo rk) 11/15/2022 Virtual Visit IM/Peds Yane Barraza MD [address] [facility] [place] [address] (Wo rk) 03/03/2023 Virtual Visit Neurology Erlinda Barber MD [address] [facility] [address] [place], [place] [phone] (Wo rk) documented as of this encounter Visit Diagnoses Diagnosis Preop general physical exam - Primary Other specified pre-operative examinatio n Morbid obesity (H) Morbid obesity documented in this encounter Care Teams Bullet Swaging Machine Operator Relationship Specialty Start Date End Date Lucero Stevenson PCP - General Pediatrics 10/11/11 04/22/19 MD Annetta Chastity Montero MD Dermatology 09/23/14 [address] [facility] [address] [place], [place] [phone] Johnnie Alcocer MD Surgeon General Surgery 03/23/17 [address] [facility] [address] [place], [place] [address] Lucero Stevenson Assigned PCP 06/17/18 11/09/19 MD TOÑO Littlejohn [address] [address] Danni Marcus, CHANDLER Personal Advocate & 01/09/1901/17 Liaison (PAL) documented as of this encounter
--- OUTSIDE RECORDS SUMMARY | 2022-06-15 13:06 | XMS_ITS | Encounter Summary ---
:1945 Author Organization [place] Address [address] [place] [address] Care Team Providers Name Role Phone Lucero Stevenson MD Primary Care Provider [phone] Chastity Montero MD Unavailable [phone] Johnnie Alcocer MD Unavailable Lucero Stevenson MD Unavailable [phone] Danni Marcus RN Unavailable Unavailable Reason for Visit Reason Onset Date Comments Orders 02/06/2019 Weight and Lab Encounter Details Date Type Department Care Team Description 02/06/2019 Telephone [facility] Lucero Stevenson rs (Weight and Clinic Yarelis Littlejohn MD Lab) [address] [place] [address] [place] [address] [phone] Social History Tobacco Use Types Packs/Day Years [...] Telephone Encounter - Danni Marcus, RN - 02/06/2019 5:16 PM CDT I spoke with CHANDLER Martinez, with [facility] ([phone]). I gave her the orders noted below and she voices understanding of instructions. She is unsure if she will be able to find a scale that will accomodate her weight, but she will try. Order placed for BMP. I gave her the direct number to SB5 triage line to call next Monday with patient's weight. Ashli Marcus RN Telephone Encounter - Lucero Stevenson MD - 02/06/2019 9:26 AM CDT Please call her home health agency and see if they can weigh her at home next Monday and draw a bmpat home. They need to call me with her weight next Monday. Lucero Stevenson MD documented in this encounter Plan of Treatment Upcoming Encounters Date Type Specialty Care Team Description 11/15/2022 Virtual Visit Haylie Wakefield, [facility] [address] [facility] [place] [address] (Wo winter) 11/15/2022 Virtual Visit IM/Peds Yane Barraza MD [address] [facility] [place] [address] (Wo rk) 03/03/2023 Virtual Visit Neurology Erlinda Barber MD [address] [facility] 295 [place] [address] (Wo rk) documented as of this encounter Results (ABNORMAL) Basic metabolic panel FUTURE anytime (02/13/2019 2:12 PM CDT) [facility] Method Time Signature Sodium 140 133 - 144 02/14/2019 [facility] mmol/L 9:16 AM CDT [facility] Potassium 4.6 3.4 - 5.3 02/14/2019 [facility] mmol/L 9:16 AM CDT [facility] Chloride 108 94 - 109 02/14/2019 [facility] mmol/L 9:16 AM CDT [facility] Carbon Dioxide 30 20 - 32 02/14/2019 [facility] mmol/L 9:16 AM CDT [facility] Anion Gap 2 (L) 3 - 14 02/14/2019 [facility] mmol/L 9:16 AM CDT [facility] Glucose 77 70 - 99 02/14/2019 [facility] mg/dL 9:16 AM CDT [facility] Urea Nitrogen 25 7 - 30 02/14/2019 [facility] mg/dL 9:16 AM CDT [facility] Creatinine 0.49 (L) 0.52 - 02/14/2019 [facility] 1.04 9:16 AM CDT [facility]ICS mg/dL [facility] GFR Estimate >90 >60 02/14/2019 [facility] mL/min/{1 9:16 AM CDT [facility] .73_m2} [facility] Comment: Non GFR Calc Starting 07/03/2018, serum creatinine ba sed estimated GFR (eGFR) will be calculated using the Chronic Kidney Dise [facility] Epidemiology Collaboration (CKD-EPI) equation. GFR Estimate If >90 >60 mL/min/{1.73_m2} 02/14/2019 9: 16 AM [facility] T [facility] Comment: GFR Calc Starting 07/03/2018, serum creatinine ba sed estimated GFR (eGFR) will be calculated using the Chronic Kidney Dise ase Epidemiology Collaboration (CKD-EPI) equation. Calcium 9.1 8.5 - 10.1 mg/dL 02/14/2019 9:16 AM CDT [facility] Specimen Anatomical Collection Method Collection Time Receive d Time (Source) Location / / Volume Laterality Blood specimen 02/13/2019 2:12 PM 019 2:17 (specimen) CDT PM CDT Lucero Stevenson MD LAB - BLOOD ORDERABLES Performing Organization Address City/State/ZIP Code Phon e Number [facility] [address] [place] [address] documented in this encounter Visit Diagnoses Diagnosis Essential hypertension, benign - Primary documented in this encounter Care Teams Peace Officer Relationship Specialty Start Date End Date Lucero Stevenson PCP - General Pediatrics 10/11/11 04/22/19 MD Annetta Chastity Montero MD Dermatology 09/23/14 [address] [facility] 98 [place], [place] [address] Johnnie Alcocer MD Surgeon General Surgery 03/23/17 [address] [facility] [address] [place] [address] Lucero Stevenson Assigned PCP 06/17/18 11/09/19 MD DEMETRIO Littlejohn[address] [phone] Danni Marcus, CHANDLER Personal Advocate & 01/09/1901/17 Liaison (PAL) documented as of this encounter
--- OUTSIDE RECORDS SUMMARY | 2022-06-15 13:06 | XMS_ITS | Encounter Summary ---
:1945 Author Organization [place] Address [address] [place] [address] Care Team Providers Name Role Phone Lucero Stevenson MD Primary Care Provider [phone] Chastity Montero MD Unavailable [phone] Johnnie Alcocer MD Unavailable Lucero Stevenson MD Unavailable [phone] Danni Marcus RN Unavailable Unavailable Encounter Details Date Type Department Care Team Description 01/22/2019 Travel Social History Tobacco Use Types Packs/Day [...] [facility] [address] [facility] [place] [address] (Wo rk) 11/15/2022 Virtual Visit IM/Peds Yane Barraza MD [address] [facility] [address] [place] [phone] (Wo rk) 03/03/2023 Virtual Visit Neurology Erlinda Barber MD [address] [facility] [address] [place], [place] [phone] (Wo rk) documented as of this encounter Visit Diagnoses Not on filedocumented in this encounter Care Teams Concrete Placement Equipment Operator Relationship Specialty Start Date End Date Lucero Stevenson PCP - General Pediatrics 10/11/11 04/22/19 MD Annetta Chastity Montero MD Dermatology 09/23/14 [address] [facility] [address] [place], [place] [phone] Johnnie Alcocer MD Surgeon General Surgery 03/23/[address] [place], [place] [address] Lucero Stevenson Assigned PCP 06/17/18 11/09/19 MD TOÑO Littlejohn DUSTIN [address] [place], [place] [phone] Danni Marcus, CHANDLER Personal Advocate & 01/09/1901/17 Liaison (PAL) documented as of this encounter
--- OUTSIDE RECORDS SUMMARY | 2022-06-15 13:06 | XMS_ITS | Encounter Summary ---
:1945 Author Organization [place] Address [address] [place] [address] Care Team Providers Name Role Phone Lucero Stevenson MD Primary Care Provider Chastity Montero MD Unavailable [phone] Johnnie Alcocer MD Unavailable Lucero Stevenson MD Unavailable [phone] Danni Marcus RN Unavailable Unavailable Reason for Referral Diagnostic Imaging MRI (Routine) - Closed Specialty Diagnoses / Procedures Referred By Contact Refer red To Contact Radiology. Diagnoses Transient confusion Lucero Stevenson, Yair Mri Rscc Procedures MR Brain w/o & w Contrast [address] [place] Formerly named [facility] [address] [place] [phone] Fax: Referral ID Status Reason Start Date Expiration Date Visits Requ ested Visits Authorized [id number] Closed 01/09/2019 01/09/2020 1 1 Reason for Visit Diagnostic Imaging MRI (Routine) - Closed Specialty Diagnoses / Procedures Referred By Contact Refer red To Contact Radiology. Diagnoses Transient confusion Lucero Stevenson, Yair Mri Rscc Procedures MR Brain w/o & w Contrast [address] [facility] [address] [place] [phone] Fax: Referral ID Status Reason Start Date Expiration Date Visits Requ ested Visits Authorized [id number] Closed 01/09/2019 01/09/2020 1 1 Encounter Details Date Type Department Care Team Description 01/16/[address] [facility] Linda Stevenson [facility] MD Annetta [address] [facility] [address] [facility] [phone] [place], [place] [phone] Social History Tobacco Use Types Packs/Day Years [...] nystatin (MYCOSTATIN) Apply topically 0 8 09/11/2019 284663 UNIT/GM external daily as needed cream nystatin (MYCOSTATIN) Apply topically 2 0 02/06/2019 382568 UNIT/GM external times daily as powder needed WARFARIN SODIUM PO Take 13 mg by mouth 0 03/17/2019 On Mon, Thur WARFARIN SODIUM PO Take 10 mg by mouth 0 03/17/2019 daily documented as of this encounter Plan of Treatment Upcoming Encounters Date Type Specialty Care Team Description 11/15/2022 Virtual Visit Haylie Wakefield, [facility] [address] [place] [address] (Wo rk) 11/15/2022 Virtual Visit IM/Peds Yane Barraza MD [address] [facility] [place] [address] (Wo rk) 03/03/2023 Virtual Visit Neurology Erlinda Barber MD [address] [facility] [address] [place], [place] [address] (Wo rk) documented as of this encounter Procedures Procedure Name Priority Date/Time Associated Diagnosis Comme nts MR BRAIN W/O & W Routine 01/16/2019 3:22 PM Transient confusio n Results for this CONTRAST CDT procedure are i n the results section. documented in this encounter Results MR Brain w/o & w Contrast (01/16/2019 3:22 PM CDT) Anatomical Region Laterality Modality Head, SUBRAD MR NEURO, UMP MR NEURO, RAD MR Magnetic Resonance Specimen (Source) Anatomical Location Collection Method / Collectio n Time Received Time / Laterality Volume Impressions 01/16/2019 4:05 PM CDT IMPRESSION: ??Normal MRI of the brain. RADHA ALEXANDER MD Narrative 01/16/2019 4:05 PM CDT MRI BRAIN WITHOUT AND WITH CONTRAST ??01/16/2019 3:22 PM HISTORY: ??Transient confusion, episode on 01/07/2009, including fogginess. TECHNIQUE: ??Multiplanar, multisequence MRI of the brain without and with 15 mL IV Gadavist. COMPARISON: None. FINDINGS: ??The brain parenchyma, ventri cles and subarachnoid spaces appear normal. ??There is no evidence of hemorrhage, mass, acute infarct, or anomaly. ??There are no gado linium enhancing lesions. The facial structures appear normal. The arteries at the base of the brain and the dural venous sinuses appea r patent. There is fluid in mastoid air cells bilaterally. Procedure Note Radha Alexander MD - 01/16/2019Formatt ing of this note might be different from the original. MRI BRAIN WITHOUT AND WITH CONTRAST 2018 3:22 PM HISTORY: Transient confusion, episode on 01/07/2009, including fogginess. TECHNIQUE: Multiplanar, multisequence MR I of the brain without and with 15 mL IV Gadavist. COMPARISON: None. FINDINGS: The brain parenchyma, ventricl es and subarachnoid spaces appear normal. There is no evidence of h emorrhage, mass, acute infarct, or anomaly. There are no gadoli nium enhancing lesions. The facial structures appear normal. The arteries at the base of the brain and the dural venous sinuses appea r patent. There is fluid in mastoid air cells bilaterally. IMPRESSION: Normal MRI of the brain. RADHA ALEXANDER MD Lucero Stevenson MD IMG MRI ORDERABLES documented in this encounter Visit Diagnoses Diagnosis Transient confusion Unspecified psychosis documented in this encounter Administered Medications Inactive Administered Medications - up to 3 most recent administrations Medication Order MAR Action Action Date Dose Rate Site gadobutrol (GADAVIST) injection 15 Given 01/16/2019 2:47 PM CDT 15 mLs mL 15 mL, Intravenous, ONCE, On Mon01/16/19 at 1445, For 1 dose, Supplied by, and administered by MRI. documented in this encounter Care Teams Flight Operations Manager Relationship Specialty Start Date End Date Lucero Stevenson PCP - General Pediatrics 10/11/11 04/22/19 MD Annetta Chastity Montero MD Dermatology 09/23/14 [address] [facility] [address] [place], [place] [address] Johnnie Alcocer MD Surgeon General Surgery 03/23/17 [address] [place], [place] [address] Lucero Stevenson Assigned PCP 06/17/18 11/09/[address] MD Annetta [address] [phone] Danni Marcus, CHANDLER Personal Advocate & 01/09/1901/17 Liaison (PAL) documented as of this encounter
--- OUTSIDE RECORDS SUMMARY | 2022-06-15 13:06 | XMS_ITS | Encounter Summary ---
:1945 Author Organization [place] Address [address] [place] [address]. [place] [address] Care Team Providers Name Role Phone Lucero Stevenson MD Primary Care Provider [phone] Chastity Montero MD Unavailable [phone] Johnnie Alcocer MD Unavailable Lucero Stevenson MD Unavailable [phone] Danni Marcus RN Unavailable Unavailable Kana Doshi HEALTH PRACTICE MANAGER Unavailable Mtm, Ea Complex Unavailable Unavailable Svetlana Osman [facility] Unavailable [phone] Doris Lai MD Primary Care Provider Haylie Cheung [facility] Unavailable [phone] Galdino Valdez MD Unavailable Lucero Stevenson MD Primary Care Provider [phone] Doris Lai MD Primary Care Provider Reason for Visit Reason Onset Date Comments Pre-Op Exam 01/18/2019 Encounter Details Date Type Department Care Team Description 01/18/2019 Telephone [facility] Jodee Culver Pre-Op Exam [place] MD Cathi [address] [phone] [place] [address] (Wo rk) Social History Tobacco Use Types [...] this encounter Miscellaneous Notes Telephone Encounter - Sheeba Claire - 01/18/2019 1:45 PM CDT Patient is calling in stating that her eye doctor needs to have pre-op faxed how ever this has not yet been signed please sign and fax to Dr. Villanueva [phone] [facility] patient is due for surgery 01/22 . documented in this encounter Plan of Treatment Upcoming Encounters Date Type Specialty Care Team Description 11/15/2022 Virtual Visit Pharm Haylie Gonzalez, [facility] 1440 [facility] [place] [address] (Lena max) 11/15/2022 Virtual Visit IM/Peds Yane Barraza MD 2753 [facility] [place] [address] (Wo rk) 03/03/2023 Virtual Visit Neurology Erlinda Barber MD 420 [facility] 295 [place], [place] [phone] (Wo rk) documented as of this encounter Visit Diagnoses Not on filedocumented in this encounter Care Teams Whanau Support Worker Relationship Specialty Start Date End Date Lucero Stevenson PCP - General Pediatrics 10/11/11 04/22/19 MD Annetta Doris Lai MD PCP - General Internal Medicine 04/23/19 05/14/19 3305 [facility] [place] [id number] Lucero Stevenson PCP - General 05/15/19 05/23/19 MD TOÑO Littlejohn [address] [place] [id number] Doris Lai MD PCP - General 05/24/19 11/28/19 3305 [facility] [place] [address] Chastity Montero MD Dermatology 09/23/14 MD Martha 420 [facility] 98 [place], [place] [address] Johnnie Alcocer MD Surgeon General Surgery 03/23/17 [address] [facility] 300 [place], [place] [address] Lucero Stevenson Assigned PCP 06/17/18 11/09/19 MD TOÑO Littlejohn 8667 [place], [place] [phone] Danni Marcus, CHANDLER Personal Advocate & 01/09/1901/17 Liaison (PAL) Kana Doshi LSW Clinic Rn Manager Primary Care - CC 03/19/19 Mtm, Ea Complex 04/23/19 Svetlana Osman Pharmacist Pharmacotherapy 04/23/19 Era, [facility] [address] [place] [address] Haylie Cheung, Pharmacist Pharmacist 09/11/19 [facility] [address] [place] [address] Galdino Valdez MD Assigned PCP 11/10/19 05/23/20 [address] [place] [address] documented as of this encounter
--- OUTSIDE RECORDS SUMMARY | 2022-06-15 13:06 | XMS_ITS | Encounter Summary ---
:1945 Author Organization [place] Address [address] [place] [address] Care Team Providers Name Role Phone Lucero Stevenson MD Primary Care Provider [phone] Chastity Montero MD Unavailable [phone] Johnnie Alcocer MD Unavailable Lucero Stevenson MD Unavailable [phone] Danni Marcus RN Unavailable Unavailable Reason for Visit Reason Onset Date Comments Home Care/Hospice 01/10/2019 Orders Encounter Details Date Type Department Care Team Description 01/10/2019 Telephone [facility] Lucero Stevenson Home Care[facility]Hospice Clinic Yarelis Littlejohn MD (Orders) [address] [place] [address] [place] [address] [phone] Social History Tobacco Use Types Packs/Day Years [...] Telephone Encounter - Danni Marcus, RN - 01/10/2019 11:24 AM CDT At office appointment Dr. Stevenson advised patient that patient should have home care obtain a cathedUA in one month to recheck for microscopic hematuria. Order was placed. I called CHANDLER Martinez with [facility] ([phone]), and left VM message with these orders. Advised her to call me back if any other questions or concerns. Ashli Marcus RN documented in this encounter Plan of Treatment Upcoming Encounters Date Type Specialty Care Team Description 11/15/2022 Virtual Visit Pharm D Haylie Cheung, [facility] [address] [facility] [place] [phone] (Wo rk) 11/15/2022 Virtual Visit [place] [address] [place] [address] [place] [phone] (Wo rk) 03/03/2023 Virtual Visit Neurology Erlinda Barber MD 420 [facility] 295 [place] [address] (Wo rk) documented as of this encounter Visit Diagnoses Not on filedocumented in this encounter Care Teams Regulatory Affairs Consultant Relationship Specialty Start Date End Date Lucero Stevenson PCP - General Pediatrics 10/11/11 04/22/19 MD Annetta Chastity Montero MD Dermatology 09/23/14 [address] [facility] 98 [place] [address] Johnnie Alcocer MD Surgeon General Surgery 03/23/17 [address] [facility] 300 [place] [address] Lucero Stevenson Assigned PCP 06/17/18 11/09/19 MD Annetta [facility] 8675 [place] [address] Danni Marcus, CHANDLER Personal Advocate & 01/09/1901/17 Liaison (PAL) documented as of this encounter
--- OUTSIDE RECORDS SUMMARY | 2022-06-15 13:06 | XMS_ITS | Encounter Summary ---
:1945 Author Organization [place] Address [address] [facility] [place] [address] Care Team Providers Name Role Phone Lucero Stevenson MD Primary Care Provider [phone] Chastity Montero MD Unavailable [phone] Johnnie Alcocer MD Unavailable Lucero Stevenson MD Unavailable [phone] Danni Marcus RN Unavailable Unavailable Encounter Details Date Type Department Care Team Description 01/22/2019 Hospital Encounter [facility] Bernabe Crespo Preop/Phase MD Geovanni II [facility] 0809 [facility] 8449 [place] [address] [address]ESSI [address] [place] [address] (Wo rk) Social History Tobacco [...] Sign Reading Time Taken Comments Blood Pressure 138/85 01/22/2019 12:17 PM CDT Pulse - - Temperature 36.4 ??C (97.5 ??F) 01/22/2019 10:14 AM CDT Respiratory Rate 16 01/22/2019 12:17 PM CDT Oxygen Saturation 100% 01/22/2019 12:17 PM CDT Inhaled Oxygen Concentration - - Weight - - Height - - Body Mass Index - - documented in this encounter Discharge Instructions Discharge InstructionsLesia Ann RN - 01/22/2019 12:10 PM CDT [facility] Discharge Instructions [...] questions of medical nature, call your physician. [facility] Cataract Surgery Discharge Instructions [facility] MD David Ang [...] ?? On-call doctor can be reached at [phone]. documented in this encounter Medications at Time [...] nystatin (MYCOSTATIN) Apply topically 0 8 09/11/2019 902840 UNIT/GM external daily as needed cream nystatin (MYCOSTATIN) Apply topically 2 0 02/06/2019 912931 UNIT/GM external times daily as powder needed nystatin (NYSTOP) 486018 APPLY TOPICALLY TO 60 g 0 02/201909/11/2019 UNIT/GM external THE AFFECTED AREA powderIndications: BENEATH BILATERAL Pressure ulcer of BREAST/GROIN FOLDS ischium, left, stage IV TWICE DAILY UNTIL (H) RESOLVED. WARFARIN SODIUM PO Take 13 mg by mouth 0 03/17/2019 On Mon, WARFARIN SODIUM PO Take 10 mg by mouth 0 03/17/2019 daily documented as of this encounter Nursing Notes Yanet Bazzi RN - 01/21/2019 1:03 PM CDT Pre op Phone call: Spoke with patient and reviewed time to arrive tomorrow at 1000. 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 Instructed [...] Implant Name Type Inv. Item Serial No. Electronics Engineering Professor Lot No. LRB No. Used EYE IMP IOL GABRIEL PCL TECNIS [id number] 17.5 Lens/Eye Implant EYE IMP IOL GABRIEL PCL TECNIS [id number] 17.5 [id number] [employer] OPT Left 1 documented in this encounter Plan of Treatment Upcoming Encounters Date Type Specialty Care Team Description 11/15/2022 Virtual Visit Pharm D Haylie Cheung, [facility] 1440 [facility] [place] [address] (Wo rk) 11/15/2022 Virtual Visit IM/Peds Yane Barraza MD [address] [facility] [place] [address] (Wo rk) 03/03/2023 Virtual Visit Neurology Erlinda Barber MD 420 [facility] 295 [place] [address] (Wo rk) documented as of [...] Rate Site cyclopentolate (CYCLOGYL) 1 % Given 01/22/2019 10:[address] roth ophthalmic solution 1 drop 1 drop, Ophthalmic, [...] at 1030, Until Mon01/22/19 at 14 56 phenylephrine (MYDFRIN /EDUARDA-SYNEPHRINE) 2.5 Given 03/2019 10:29 [...] , Pre-procedure proparacaine (ALCAINE) 0.5 % ophthalmic Given 01/22/2019 10:08 A M CDT 1 drop solution 1 drop 1 drop, Ophthalmic, ONCE, On Mon01/22/19 at 1000, For 1 dose, Into operative eye(s) before dilating drops instilled., Pre-procedure tropicamide (MYDRIACYL) 1 % ophthalmic Given 01/22/2019 [...] (COMPLE CAMILA) 1008 (Given - Provider: Hilda Chairez, CHANDLER)1018 (Given - Provider: Hilda Chairez, CHANDLER)1029 (Given - Provider: Hilda Chairez, RN) 1 drop, Ophthalmic, EVERY 5 MIN [...] drop (COMPLET ED) 1008 (Given - Provider: Hilda Chairez RN) 1 drop, Ophthalmic, ONCE, Mon01/22/19 at 1000, For 1 dose, Into operative eye(s) before dilating drops instilled., Pre-procedure proparacaine (ALCAINE) 0.5 % ophthalmic solution 1 drop 1000 (Canceled Entry - Provider: Orders Generic Provider - Comment: Automatically canceled at discontinue of medication order) 1 drop, Ophthalmic, ONCE, Mon01/22/19 at 1000, For 1 dose, Apply to [...] Intra-procedure documented in this encounter Care Teams Ultrasonic Tester Relationship Specialty Start Date End Date Lucero Stevenson PCP - General Pediatrics 10/11/11 04/22/19 MD Annetta Chastity Montero MD Dermatology 09/23/14 420 [facility] 98 [place], [place] [address] Johnnie Alcocer MD Surgeon General Surgery 03/23/17 [address] [facility] 300 [place], [place] [phone] Lucero Stevenson Assigned PCP 06/17/18 11/09/19 MD [facility] 8675 [place] [address] Danni Marcus RN Personal Advocate & 01/09/1901/17 Liaison (PAL) documented as of this encounter
--- OUTSIDE RECORDS SUMMARY | 2022-06-15 13:06 | XMS_ITS | Encounter Summary ---
:1945 Author Organization [place] Address [address] [place] [address] Care Team Providers Name Role Phone Lucero Stevenson MD Primary Care Provider [phone] Chastity Montero MD Unavailable [phone] Johnnie Alcocer MD Unavailable Lucero Stevenson MD Unavailable [phone] Danni Marcus RN Unavailable Unavailable Encounter Details Date Type Department Care Team Description 02/06/2019 Travel Social History Tobacco Use Types Packs/Day [...] Pharm Haylie Gonzalez, [facility] [address] [facility] [address] (Wo rk) 11/15/2022 Virtual Visit IM/Peds Yane Barraza MD [address] [facility] [address] [place] [phone] (Wo rk) 03/03/2023 Virtual Visit Neurology Erlinda Barber MD 420 [facility] 295 [place], [place] [phone] (Wo rk) documented as of this encounter Visit Diagnoses Not on filedocumented in this encounter Care Teams Chicken Boner Relationship Specialty Start Date End Date Lucero Stevenson PCP - General Pediatrics 10/11/11 04/22/19 MD Annetta Chastity Montero MD Dermatology 09/23/14 420 [facility] 98 [place], [place] [phone] Johnnie Alcocer MD Surgeon General Surgery 03/23/[address] [place], [place] [address] Lucero Stevenson Assigned PCP 06/17/18 11/09/19 MD TOÑO Littlejohn [facility] [address]75 [place], [place] [phone] Danni Marcus, CHANDLER Personal Advocate & 01/09/1901/17 Liaison (PAL) documented as of this encounter
--- OUTSIDE RECORDS SUMMARY | 2022-06-15 13:07 | XMS_ITS | Encounter Summary ---
:1945 Author Organization [place] Address [address] [place] [address] Care Team Providers Name Role Phone Lucero Stevenson MD Primary Care Provider Chastity Montero MD Unavailable [phone] Johnnie Alcocer MD Unavailable Lucero Stevenson MD Unavailable [phone] Reason for Visit Diagnostic Imaging Mammo (Routine) - Closed Specialty Diagnoses / Procedures Referred By Contact Refer red To Contact Diagnoses Visit for screening mammogram Lucero Stevenson Procedures MA Screen Bilateral w/Sven MA Screening Digital Bilateral MD TOÑO LOPEZ [address] [facility] [place] [address] Referral ID Status Reason Start Date Expiration Date Visits Requ ested Visits Authorized [id number] Closed 12/11/2018 12/11/2019 1 1 Encounter Details Date Type Department Care Team Description 12/26/2018 Ancillary [facility] Lucero Stevenson for screening Procedure Clinic Yarelis Littlejohn MD mammogram [address] TOÑO MOSES [facility] [address] [facility] [address] [place], [place] [phone] Social History Tobacco Use Types Packs/Day Years [...] slept in a nursing home (including now)? Sex Assigned at Date Recorded Female 12/24/2018 12:35 PM CDT documented as of this encounter Plan of Treatment Upcoming Encounters Date Type Specialty Care Team Description 11/15/2022 Virtual Visit Pharm Haylie Gonzalez, [facility] [address] [facility] [address] [place] [phone] (Wo rk) 11/15/2022 Virtual Visit IM/PedYane Muir MD 3305 [facility] [place] [phone] (Wo rk) 03/03/2023 Virtual Visit Neurology Erlinda Barber MD 420 [facility] 295 [place], [place] [phone] (Wo rk) documented as of this encounter Procedures Procedure Name Priority Date/Time Associated Diagnosis Comme nts MA SCREENING Routine 12/26/2018 9:10 AM Visit for screening Re sults for this BILATERAL W/ SVEN CDT mammogram procedure are in the results section. documented in this encounter Results MA Screen Bilateral w/Sven (12/26/2018 9:10 AM CDT) Anatomical Region Laterality Modality Breast Bilateral Mammography Specimen (Source) Anatomical Location Collection Method / Collectio n Time Received Time / Laterality Volume Impressions 12/26/2018 10:09 AM CDT IMPRESSION: BI-RADS CATEGORY: 1 - ??Negative. RECOMMENDED FOLLOW-UP: Annual Mammograph christie GALAVIZ MD Narrative 12/26/2018 10:09 AM CDT SCREENING MAMMOGRAM, BILATERAL, DIGITAL w/CAD and TOMOSYNTHESIS, 12/26/2018 10:08 AM BREAST DENSITY: Scattered fibroglandular densities. CLINICAL INFORMATION: Breast screening. ??Visit for screening mammogram, 01/05/16, 01/09/14, 01/08/13, 01/05/12 FINDINGS: Negative. Stable exam. Screeni ng exam in one year recommended. Procedure Note Alondra Galaviz MD - 12/26/2018Formatt ing of this note might be different from the original. SCREENING MAMMOGRAM, BILATERAL, DIGITAL w/CAD and TOMOSYNTHESIS, 12/26/2018 10:08 AM BREAST DENSITY: Scattered fibroglandular densities. CLINICAL INFORMATION: Breast screening. Visit for screening mammogram, 01/05/16, 01/09/14, 01/08/13, 01/05/12 FINDINGS: Negative. Stable exam. Screeni ng exam in one year recommended. IMPRESSION: BI-RADS CATEGORY: 1 - Negati ve. RECOMMENDED FOLLOW-UP: Annual Mammograph y. ALONDRA GALAVIZ MD Lucero Stevenson MD IMG MAMMOGRAPHY ORDERABLES documented in this encounter Visit Diagnoses Diagnosis Visit for screening mammogram Other screening mammogram documented in this encounter Care Teams Dulser Relationship Specialty Start Date End Date Lucero Stevenson MD PCP - General Pediatrics 10/11/11 04/22/19 Chastity Montero MD MD Dermatology 09/23/14 420 [facility] 98 [place], [place] [address] Johnnie Alcocer MD Surgeon General Surgery 03/23/17 [address] [facility] 300 [place], [place] [phone] Lucero Stevenson MD Assigned PCP 06/17/18 11/09/[address] [address] documented as of this encounter
--- OUTSIDE RECORDS SUMMARY | 2022-06-15 13:07 | XMS_ITS | Encounter Summary ---
:1945 Author Organization [place] Address [address] [place] [address] Care Team Providers Name Role Phone Lucero Stevenson MD Primary Care Provider [phone] Chastity Montero MD Unavailable [phone] Johnnie Alcocer MD Unavailable Lucero Stevenson MD Unavailable [phone] Reason for Visit Reason Onset Date Comments Orders 12/25/2018 Encounter Details Date Type Department Care Team Description 12/25/2018 Telephone [facility] Stefanie Stevenson Orders Eagan MD [address] [place] [address] [place] [address] [phone] Social History Tobacco Use Types Packs/Day Years [...] or slept in a mcc (including now)? Sex Assigned at Date Recorded Female 12/24/2018 12:35 PM CDT documented as of this encounter Miscellaneous Notes Telephone Encounter - Krystyna Sharp RN - 12/26/2018 1:50 PM CDT Called Bibi back. Requesting orders for: PT twice a week x 2 weeks, once a week x 1 week for strengthening & home exercises. Verbal OK given as per nursing protocol. Julia. Mally RN Triage Nurse Telephone Encounter - Jolanta Reddy RN - 12/25/2018 6:48 PM CDT Call to Bibi, physical therapist with [facility]. Asked to call back with which orders we are approving. Jolanta Reddy RN Message handled by Nurse Triage. Telephone Encounter - Kalee Land - 12/25/2018 4:02 PM CDT Bibi is a Physical Therapist that needs verbal orders from Dr Luque for Charlette Brush. Please call SED[facility]. documented in this encounter Plan of Treatment Upcoming Encounters Date Type Specialty Care Team Description 11/15/2022 Virtual Visit Pharm D Haylie Cheung, [facility] 1440 [facility] [place] [address] (Wo winter) 11/15/2022 Virtual Visit IM/Peds Yane Barraza MD 3082 [facility] K [facility] [place] [phone] (Lena max) 03/03/2023 Virtual Visit Neurology Erlinda Barber MD 420 [facility] 295 [place], [place] [phone] (Wo rk) documented as of this encounter Visit Diagnoses Not on filedocumented in this encounter Care Teams Brickmason Apprentice Relationship Specialty Start Date End Date Lucero Stevenson MD PCP - General Pediatrics 10/11/11 04/22/19 Chastity Montero MD MD Dermatology 09/23/14 420 [facility] 98 [place], [place] [address] Johnnie Alcocer MD Surgeon General Surgery 03/23/17 [address] [facility] 300 [place], [place] [address] Lucero Stevenson MD Assigned PCP 06/17/18 11/09/19 [facility] [address] [place] [address] documented as of this encounter
--- OUTSIDE RECORDS SUMMARY | 2022-06-15 13:07 | XMS_ITS | Encounter Summary ---
:1945 Author Organization [place] Address [address] [place] [place] [address] Care Team Providers Name Role Phone Lucero Stevenson MD Primary Care Provider Chastity Montero MD Unavailable [phone] Johnnie Alcocer MD Unavailable Lucero Stevenson MD Unavailable [phone] Reason for Visit Reason Comments Altered Mental Status Encounter Details Date Type Department Care Team Description 01/07/2019 - Emergency [facility] Gene Donovan MD [facility] [address] [place], [place] [id number] Failure to thrive in adult; 01/08/2019 [place] Uriel Castro MD [address] [place] [id number] Disorientation Dept [address] [place] [address] Social History Tobacco Use Types Packs/Day Years [...] organizations such as roman catholic groups, unions, [employer] software or athletic groups, or school groups? How [...] Sign Reading Time Taken Comments Blood Pressure 135/68 01/08/2019 12:26 PM CDT Pulse 84 01/07/2019 5:01 PM CDT Temperature 36.5 ??C (97.7 ??F) 01/08/2019 12:26 PM CDT Respiratory Rate 20 01/08/2019 12:26 PM CDT Oxygen Saturation 98% 01/08/2019 12:26 PM CDT Inhaled Oxygen Concentration - - Weight 156 kg (344 lb) 01/07/2019 7:09 PM CDT Height 170.2 cm (5' 7) 01/07/2019 7:09 PM CDT Body Mass Index 53.88 01/07/2019 7:09 PM CDT documented in this encounter Discharge Summaries Columba Partida PA-C - 01/08/2019 10:21 AM CDT [facility] Hospitalist Discharge Summary Date of Admission: 01/07/2019 Date of Discharge: 01/08/2019 Discharging Provider: Columba Partida PA-C Discharge Diagnoses Generalized weakness and transient confusion, unclear etiology History of recurrent DVT and PE, on chronic anticoagulation Obstructive sleep apnea Hypertension Chronic lymphedema Morbid obesity, BMI 53 Microscopic hematuria Follow-ups Needed After Discharge Follow-up Appointments Follow-up and recommended labs and tests Follow up with primary care provider, Lucero Stevenson, within 7 days (as you already have scheduled) for hospital follow- up. No follow up labs or test are needed. Unresulted Labs Ordered in the Past 30 Days of this Admission No orders found for last 61 day(s). These results will be followed up by NA Discharge Disposition Discharged to home Condition at discharge: Stable Hospital Course This is a 72 year-old woman with history of PE/DVT, CEFERINO, and obesity admitted for weakness and confusion. Symptoms vague and included some dizziness which self-resolved. Per H&P, patient did not sleep much the night prior. Work-up included head CT (no acute findings), electrolytes normal, no events on telemetry. Suspect possible mild dehydration and mild delirium due to poor sleep with possible mild hypercapnea from her chronic sleep apnea. On day of discharge, patient completely at baseline. She may follow-up with primary care as previously arranged. Recommend repeat urinalysis and outpatient follow-up of microscopic hematuria. No urinary symptoms to suggest UTI. Consultations This Hospital Stay PHARMACY TO DOSE WARFARIN PHYSICAL THERAPY ADULT IP CONSULT Code Status Full Code Time Spent on this Encounter I, Columba Partida, personally saw the patient today and spent greater than 30 minutes dischargingthis patient. Columba Partida, ABHISHEK [facility] Physical Exam Vital Signs: Temp: 97.9 ??F (36.6 ??C) Temp src: Oral BP: 118/74 Pulse: 84 Heart Rate: 64 Resp: 20 SpO2: 97 % O2 Device: BiPAP/CPAP Weight: 344 lbs 0 oz -------- Constitutional: nontoxic appearing woman resting in bed Eyes: no icterus HEENT: mucous membranes moist Respiratory: clear bilaterally Cardiovascular: RRR, no murmurs GI: normoactive bowel sounds, soft, nontender, obese Lymph/Hematologic: no bruising Genitourinary: no catheter Skin: warm and dry Musculoskeletal: normal muscle bulk and tone. Bilateral LE wrapped from ankles to knees Neurologic: nonofcal Psychiatric: alert, oriented, answering questions appropriately. Odd affect. Primary Care Physician Lucero Stevenson Discharge Orders Reason for your hospital stay You were in the hospital for weakness and transient confusion of unclear etiology. Please continue to work with your primary care provider regarding your symptoms. Follow-up and recommended labs and tests Follow up with primary care provider, Lucero Stevenson, within 7 days (as you already have scheduled) for hospital follow- up. No follow up labs or test are needed. When to contact your care team Call your primary doctor if you have any of the following: weakness, confusion Activity Your activity upon discharge: activity as tolerated Full Code Diet Follow this diet upon discharge: Orders Placed This Encounter Regular Diet Adult Significant Results and Procedures Most Recent 3 BMP's: Recent Labs Lab Test 01/07/19 1508 12/26/18 1026 05/30/18 1612 NA 137 140 140 POTASSIUM 4.0 4.2 4.0 CHLORIDE 104 107 104 CO2 30 26 28 BUN 16 19 18 CR 0.47* 0.50* 0.58 ANIONGAP 3 7 8 TOMA 8.7 8.9 9.2 GLC 112* 94 77 Most Recent 3 INR's: Recent Labs Lab Test 01/08/19 0652 01/07/19 1508 12/26/18 0935 INR 2.37* 2.25* 2.70* , Results for orders placed or performed during the hospital encounter of 01/07/[address] w/o contrast Narrative CT OF THE HEAD WITHOUT CONTRAST 01/07/2019 4:23 PM COMPARISON: Head CT 10/20/2017 HISTORY: Confusion, on warfarin. TECHNIQUE: [address] images of the head were acquired without IV contrast material. FINDINGS: There is mild diffuse cerebral volume loss. There are subtle patchy areas of decreased density in the cerebral white matter bilaterally that are consistent with sequela of chronic small vessel ischemic disease. The ventricles and basal cisterns are within normal limits in configuration given the degree of cerebral volume loss. There is no midline shift. There are no extra-axial fluid collections. No intracranial hemorrhage, mass or recent infarct. The visualized paranasal sinuses are well-aerated. There is no mastoiditis. There are no fractures of the visualized bones. Impression IMPRESSION: Diffuse cerebral volume loss and cerebral white matter changes consistent with chronic small vessel ischemic disease. No evidence for acute intracranial pathology. Radiation dose for this scan was reduced using automated exposure control, adjustment of the mA and/or kV according to patient size, or iterative reconstruction technique. JOSE OLSEN MD Discharge Medications Current Discharge Medication List CONTINUE these medications which have NOT CHANGED Details acetaminophen (TYLENOL) 325 MG tablet Take 325 mg by mouth daily as needed ascorbic acid (VITAMIN C) 500 MG tablet Take 500 mg by mouth daily atenolol (TENORMIN) 25 MG tablet Take 1 tablet (25 mg) by mouth 2 times daily Qty: 180 tablet, Refills: 3 Comments: ### DO NOT FILL NOW. Please update patient's profile to reflect additional refills. #### Associated Diagnoses: Essential hypertension, benign Calcium Carb-Cholecalciferol [...] deficiency anemia type furosemide (LASIX) 20 MG tablet Take 10 mg by mouth daily hydrocortisone 2.5 % ointment Daily as needed Qty: 180 g, Refills: 3 Associated Diagnoses: Dermatitis losartan (COZAAR) 50 MG tablet Take 1 tablet (50 mg) by mouth daily Qty: 90 tablet, Refills: 3 Associated Diagnoses: Essential hypertension, benign Multiple Vitamins-Minerals (PRESERVISION/LUTEIN) CAPS Take 1 tablet by mouth 2 times daily multivitamin w/minerals (THERA-VIT-M) tablet Take 1 tablet by mouth daily nystatin (MYCOSTATIN) 754614 UNIT/GM external cream Apply topically daily as needed Refills: 0 nystatin (MYCOSTATIN) [id number] UNIT/GM external powder Apply topically 2 times daily as needed !! WARFARIN SODIUM PO Take 13 mg by mouth On !! WARFARIN SODIUM PO Take 10 mg by mouth Tue, Mon, Fri, Sat, Sun !! - Potential duplicate medications found. Please discuss with provider. Allergies Allergies Allergen Reactions ??? Cephalexin Hives Keflex - hives ??? Lanolin Other (See Comments) skin irritation ??? Lisinopril Cough ??? Neomycin Other (See Comments) skin irritation ??? Penicillins Hives ??? Bactroban [Mupirocin Calcium] Rash ??? Mupirocin Rash and Unknown Associated attestation - Han Alejandre MD - 01/14/2019 9:42 PM CDT Physician Attestation I, Han Alejandre, have reviewed and discussed with the advanced practice provider their discharge plan for Charlette Brush. I did not participate in a shared visit by interviewing or examining the patient and this should be billed as an advanced practice provider only discharge. Han Alejandre Date of Service (when I saw the patient): I did not personally see this patient today. documented in this encounter Medications at Time [...] nystatin (MYCOSTATIN) Apply topically 0 8 09/11/2019 [id number] UNIT/GM external daily as needed cream nystatin (MYCOSTATIN) Apply topically 2 0 02/06/2019 [id number] UNIT/GM external times daily as powder needed WARFARIN SODIUM PO Take 13 mg by mouth 0 03/17/2019 On Mon, Thur WARFARIN SODIUM PO Take 10 mg by mouth 0 03/17/2019 daily documented as of this encounter Progress Notes Cesar Amin - 01/08/2019 9:12 AM CDT Pt walked in the braxton with walker and gait belt with light assist A1 500 ft ,pr did vary well. documented in this encounter H&P Notes Uriel Maher MD - 01/07/2019 6:20 PM CDT [facility] History and Physical - Hospitalist Service Date of Admission: 01/07/2019 Assessment & Plan Charlette Brush is a 72 year old female with PMH including morbid obesity, hx of remote PE/DVT normally on coumadin, HTN, CEFERINO on cpap who presents with generalized weakness and transient confusion. ?? Assessment and Plan: 1. Generalized weakness Altered Mental Status: Likely multifactorial, posisbly due to dehydration. But certainly also her morbid obesity with lymphedema I suspect is also contributing. For now will focus improving her nutrition, encouraging PO fluid intake and ask for physical therapy consult. Initial work-up including CBC/B MP/Head CT was without acute findings. Plan: - admit to observation - PT eval - Follow vitals/temp - Fall precautions - bariatric bed ?? 2. History of multiple prior DVTs and one episode of PE: Per her report the last blood clot was about 10 years ago but it sounds as though she had multiple DVTs prior to that. She is on Warfarin, chronically, INR is therapeutic on admission. Continue warfarin, pharmacy to dose ?? 3. Sleep apnea: Provide home CPAP while here. ?? 4. Hypertension: We will continue her losartan and hydrochlorothiazide in AM once verified. Can resume her beta-uzair (atenolol) overnight if able to be verified. 5. Chronic Lymphedema. 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 Diet: Regular diet DVT Prophylaxis: Pneumatic Compression Devices Scanlon Catheter: not present Code Status: FULL CODE Disposition Plan Expected discharge: Tomorrow, recommended to prior living arrangement once adequate pain management/tolerating PO medications. Entered: Uriel Maher MD 01/07/2019, 6:19 PM The patient's care was discussed with the Patient, Patient's Family and ED provider. Uriel Maher MD [facility] Chief Complaint Generalized Weakness History is obtained from the patient History of Present Illness Charlette Brush is a 72 year old female with PMH including morbid obesity, hx of remote PE/DVT normally on coumadin, HTN, CEFERINO on cpap who presents with generalized weakness and transient confusion. Patient reports that the night prior to admission, she did not sleep very much at all due to feelingcold, and she woke up more confused than her baseline and was very concerned that she did not takeher usual prior to admission medications. She endorsed feeling some dizziness, which did improve as she ambulated around her home. Her home nurse visited the patient and changed her wound dressings andadministered her medications. Her home nurse later called the patient told her that she appeared to be more confused at baseline, and it appears that EMS was activated to bring the patient to emergencydepartment for further evaluation. Patient denies any cough, no fevers or chills, no chest pain or shortness of breath. She denies any recent falls or head trauma. She denies any localized weakness, but does endorse generalized weakness. She denies any new numbness or tingling of extremities. She doesendorse that she is had minimal p.o. fluid intake over the last day. Denies any diarrhea, no urinarycomplaints, no blood in her stool, no new joint pain or swelling. She denies any headaches or visionchanges. She reports that since arrival to the emergency department, she has felt improved, is closer to her baseline state of health. She has no other complaints at this time. She reports that she wasotherwise in her usual state of health prior to this morning's events. No new medications been started. Review of Systems The 10 point Review of Systems is negative other than noted in the HPI or here. Past Medical History I have reviewed this [...] RH OR ? ? TONSILLECTOMY & ADENOIDECTOMY Social History I have reviewed this patient's social history and updated it with pertinent information if needed. Social History Tobacco Use ??? Smoking status: Never Smoker ??? Smokeless tobacco: Never Used Substance Use Topics ??? Alcohol use: No Frequency: Never ??? Drug use: No Family History I have reviewed this patient's [...] ??? Macular Degeneration No family hx of Prior to Admission Medications Prior to Admission Medications Prescriptions Last Dose Informant Patient Reported? Taking? Calcium Carb-Cholecalciferol (CALCIUM + D3) 600-200 MG-UNIT TABS Yes No Cholecalciferol (VITAMIN D PO) Yes No Sig: Take 2,000 Units by mouth daily FEROSUL 325 (65 Fe) MG tablet No No Sig: Take 1 tablet (325 mg) by mouth daily (with breakfast) Pediatric Multivitamins-Fl (CHEWABLE MULTIVITE/FLUORIDE PO) Yes No acetaminophen (TYLENOL) 325 MG tablet Yes No Sig: Take 325 mg by mouth daily ascorbic acid (VITAMIN C) 500 MG tablet Yes No Sig: Take 500 mg by mouth atenolol (TENORMIN) 25 MG tablet No No Sig: Take 1 tablet (25 mg) by mouth 2 times daily cetirizine (ZYRTEC) 10 MG tablet Yes No Sig: Take 10 mg by mouth 2 times daily desoximetasone (TOPICORT) 0.05 % GEL Yes No Sig: Apply topically 2 times daily as needed for inflammation or itching furosemide (LASIX) 40 MG tablet No No Sig: Take 0.5 tablets (20 mg) by mouth daily hydrocortisone 2.5 % ointment No No Sig: Daily as needed losartan (COZAAR) 50 MG tablet No No Sig: Take 1 tablet (50 mg) by mouth daily nystatin (MYCOSTATIN) [id number] UNIT/GM external cream Yes No nystatin (MYCOSTATIN) 883494 UNIT/GM external ointment No No Sig: Apply topically 2 times daily nystatin (NYSTOP) 448019 UNIT/GM external powder No No Sig: APPLY TOPICALLY TO THE AFFECTED AREA BENEATH BILATERAL BREAST/GROIN FOLDS TWICE DAILY UNTIL RESOLVED. warfarin (COUMADIN) 10 MG tablet No No Sig: TAKE 13MG ON MONDAY AND MONDAY. TAKE 10MG BY MOUTH ON ALL OTHER DAYS OF THE WEEKS. warfarin (COUMADIN) 3 MG tablet No No Sig: TAKE 1 TABLET BY MOUTH EVERY DAY ALONG WITH 10MG FOR TOTAL DOSE OF 13MG Facility-Administered Medications: None Allergies Allergies Allergen Reactions ??? Cephalexin Hives Keflex - hives ??? Lanolin Other (See Comments) skin irritation ??? Lisinopril Cough ??? Neomycin Other (See Comments) skin irritation ??? Penicillins Hives ??? Bactroban [Mupirocin Calcium] Rash ??? Mupirocin Rash and Unknown Physical Exam Vital Signs: Temp: 98.6 ??F (37 ??C) BP: 156/76 Pulse: 84 Heart Rate: 83 Resp: 20 SpO2: 96 % O2 Device: None (Room air) Weight: 344 lbs 11.2 oz General: Alert, awake, no acute distress. HEENT: NC/AT, eyes anicteric, external occular movements intact, face symmetric. Cardiac: RRR, S1, S2. No murmurs appreciated. Pulmonary: CTABL Abdomen: Morbidly obese soft, non-tender, non-distended. Bowel Sounds Present. No guarding. Extremities: Bilateral lymphedema, left leg is larger than the right with diffuse erythema covering much of the left lower leg up to the knee. This is warm to the touch. Skin: Numerous excoriations and areas of skin thickening and cracked skin. Scattered bruises. Left lower leg as above. Warm and Dry. Neuro: No focal deficits noted. Speech clear. Sensation and strength grossly normal. Psych: Appropriate affect. Data Data reviewed today: I reviewed all medications, new labs and imaging results over the last 24 hours. I personally reviewed the head CT image(s) showing no acute findings. Recent Labs Lab 01/07/19 1508 WBC 8.4 HGB 14.4 MCV 90 PLT 311 INR 2.25* NA 137 POTASSIUM 4.0 CHLORIDE 104 CO2 30 BUN 16 CR 0.47* ANIONGAP 3 TOMA 8.7 GLC 112* Recent Results (from the past 24 hour(s)) Head CT w/o contrast Narrative CT OF THE HEAD WITHOUT CONTRAST 01/07/2019 4:23 PM COMPARISON: Head CT 10/20/2017 HISTORY: Confusion, on warfarin. TECHNIQUE: [address] images of the head were acquired without IV contrast material. FINDINGS: There is mild diffuse cerebral volume loss. There are subtle patchy areas of decreased density in the cerebral white matter bilaterally that are consistent with sequela of chronic small vessel ischemic disease. The ventricles and basal cisterns are within normal limits in configuration given the degree of cerebral volume loss. There is no midline shift. There are no extra-axial fluid collections. No intracranial hemorrhage, mass or recent infarct. The visualized paranasal sinuses are well-aerated. There is no mastoiditis. There are no fractures of the visualized bones. Impression IMPRESSION: Diffuse cerebral volume loss and cerebral white matter changes consistent with chronic small vessel ischemic disease. No evidence for acute intracranial pathology. Radiation dose for this scan was reduced using automated exposure control, adjustment of the mA and/or kV according to patient size, or iterative reconstruction technique. JOSE OLSEN MD documented in this encounter ED Notes Annetta Montesinos RN - 01/07/2019 6:27 PM CDT [facility] ED Nurse Handoff Report Charlette Brush is a 74 year old female ED Chief complaint: Altered Mental Status . ED Diagnosis: Final diagnoses: Failure to thrive in adult Disorientation Allergies: Allergies Allergen Reactions ??? Cephalexin Hives Keflex - hives ??? Lanolin Other (See Comments) skin irritation ??? Lisinopril Cough ??? Neomycin Other (See Comments) skin irritation ??? Penicillins Hives ??? Bactroban [Mupirocin Calcium] Rash ??? Mupirocin Rash and Unknown Code Status: Full Code Activity level - Baseline/Home: Stand by Assist. With walkerActivity Level - Current: Assist X 1.-2 with walker Lift room needed: No. Bariatric: Yes Shaft Headman Needed: No Isolation: No. Infection: Not Applicable. Vital Signs: Vitals: 01/07/19 1645 01/07/19 1701 01/07/19 1719 01/07/19 1825 BP: 153/85 Pulse: 79 84 Resp: Temp: SpO2: 94% 98% 96% 96% Weight: Height: Cardiac Rhythm: , Pain level: Patient confused: Yes. Patient Falls Risk: Yes. Elimination Status: Has voided , straight cath Patient Report - Initial Complaint: confusion, AMS. Focused Assessment: 14:52 ED Triage Notes Filed Pt lives in private residence with home care. Home health visited today for wound care. Meds given by them, pt had emesis and called Home Health. Pt c/o dizziness, confusion, nausea, and emesis. ABC in tact. A/OX3 16:11 Skin Color/Condition Skin - Skin WDL: -WDL except (L sided sacral/coccyx wound, pink, purulent, yellow moderate amount of flui9d. Denies pain. Covered with meplex. ) 16:12 MHCD General Appearance - ADL Assessment (WDL): WDL except (no additional) Speech (WDL): WDL Psychiatric Symptoms / Stressors - Mood/Behavior: calm; cooperative Thoughts/Cognition (WDL): orientation Orientation: time, disoriented; date, disoriented; place: oriented; other (see comment) (unableto recall president, date/time. but able to vocialize she is confused.) Tests Performed: labs, CT . Abnormal Results: Labs Ordered and Resulted from Time of ED Arrival Up to the Time of Departure from the ED BASIC METABOLIC PANEL - Abnormal; Notable for the following components: Result Value Glucose 112 (*) Creatinine 0.47 (*) All other components within normal limits ROUTINE UA WITH MICROSCOPIC - Abnormal; Notable for the following components: Blood Urine Small (*) Protein Albumin Urine 20 (*) RBC Urine 30 (*) Amorphous Crystals Few (*) All other components within normal limits INR - Abnormal; Notable for the following components: INR 2.25 (*) All other components within normal limits CBC WITH PLATELETS DIFFERENTIAL . Head CT w/o contrast Final Result IMPRESSION: Diffuse cerebral volume loss and cerebral white matter changes consistent with chronic small vessel ischemic disease. No evidence for acute intracranial pathology. Radiation dose for this scan was reduced using automated exposure control, adjustment of the mA and/or kV according to patient size, or iterative reconstruction technique. JOSE OLSEN MD . Treatments provided: monitoring Family Comments: dtr at bedside OBS brochure/video discussed/provided to patient: Yes ED Medications: Medications - No data to display Drips infusing: No For the majority of the shift, the patient's behavior Green. Interventions performed were n/a. Severe Sepsis OR Septic Shock Diagnosis Present: No ED Nurse Name/Phone Number: Aliza German, 6:27 PM RECEIVING UNIT ED HANDOFF REVIEW Above ED Nurse Handoff Report was reviewed: Yes Reviewed by: Annetta Montesinos on January 07, 2019 at 6:34 PM Ailza German RN - 01/07/2019 6:00 PM CDT dtr concerned with patient going back home. Dtr reports pt ambulation is at baseline, but c/o confusion level. Aliza German RN - 01/07/2019 2:55 PM CDT Pt reports 2017 pt reports her toilet seat broke and she was on her bathroom floor for 3 days which lead to wounds. Pt presents with L ankle brace, BLE wrapping for lymphadema. Pt also states hercoccyx wound on L side is baseline Aliza German RN - 01/07/2019 2:52 PM CDT Pt lives in private residence with home care. Home health visited today for wound care. Meds given by them, pt had emesis and called Home Health. Pt c/o dizziness, confusion, nausea, and emesis. ABC intact. A/OX3 Maggie Siddiqui RN - 01/07/2019 2:52 PM CDT Bed: ED02 Expected date: 01/07/19 Expected time: 2:39 PM Means of arrival: Ambulance Comments: HE Altaf Donovan MD - 01/07/2019 2:50 PM CDT History Chief Complaint: Confusion HPI Charlette Brush is a 74 year old female who presents via EMS form home with concern for confusion. The nurse reports that the patient's home health nurse came and administered her pills and changed her dressings on her wounds and her lower extremity wraps for her lymphedema. The nurse states that afterthe home health nurse left the patient had an episode of emesis and then called EMS for confusion. The patient reports a different story. She reports that she did not sleep very much during the nightlast night, and throughout the morning today she was considerably confused and was worried about this and did not take her medications which she usually does. She also states she was experiencing interm ittent dizziness, which would improve if she ambulated for any amount of time around her home. Her home health nurse came and changed her wound dressings and administered her medications as she had notyet done that, and then left. She went to lay down and took a nap. However, she states that she got a call from her nurse telling her that he had noticed her confusion and she is unsure whether her nurse of her daughter called EMS but whatever the case she was brought here. She does report that she threw up one time without blood. She denies chest pain, arm weakness, numbness, visual disturbance, urinary issues, fevers, diarrhea, coughing, recent falls. She states she has at times been told she has had Afib but other times has been told this is not true. She reports chills today as well and actually states she is feeling better here in the ER. She denies any appetite change or recent falls. 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 Review of Systems Constitutional: Positive for chills. Negative for appetite change and fever. Eyes: Negative for visual disturbance. Respiratory: Negative for cough. Cardiovascular: Negative for chest pain. Gastrointestinal: Positive for vomiting. Negative for diarrhea. Genitourinary: Negative for dysuria and hematuria. Neurological: Positive for dizziness. Negative for weakness and numbness. Psychiatric/Behavioral: Positive for confusion. All other systems reviewed and are negative. Physical Exam Patient Vitals for the past 24 hrs: BP Temp Pulse Heart Rate Resp SpO2 Height Weight 01/07/19 1853 -- -- -- -- 20 -- -- -- 01/07/19 1825 -- -- -- -- -- 96 % -- -- 01/07/19 1719 -- -- -- -- -- 96 % -- -- 01/07/19 1701 -- -- 84 -- -- 98 % -- -- 01/07/19 1645 153/85 -- 79 -- -- 94 % -- -- 01/07/19 1600 156/76 -- 83 -- -- 96 % -- -- 01/07/19 1503 152/82 -- -- -- -- -- -- -- 01/07/19 1500 152/82 -- 84 -- -- 98 % -- -- 01/07/19 1459 -- 98.6 ??F (37 ??C) -- 83 20 99 % 1.702 m (5' 7) (!) 156.4 kg (344 lb 11.2 oz) Physical Exam VS: Reviewed per above HENT: Mucous membranes moist EYES: sclera anicteric CV: Rate as noted, regular rhythm. RESP: Effort normal. Breath sounds are normal bilaterally. GI: no tenderness, not distended. NEURO: GCS 15, cranial nerves II through XII are intact, 5 out of 5 strength in all 4 extremities, sensation is intact light touch in all 4 extremities MSK: No deformity of the extremities SKIN: Warm and dry, deep pressure ulcer to left buttock without surrounding redness or erythema Emergency Department Course ECG: Indication: confusion Time: 1503 Vent. Rate 83 bpm. MA interval *. QRS duration 96. QT/QTc 376/441. P-R-T axis * 47 19. Atrial fibrillation. Nonspecific ST abnormality. Abnormal EC. No significant change compared to EKG dated 10/28/17.Read time: 1524 Imaging: Radiographic findings were communicated with the patient who voiced understanding of the findings. CT Head without contrast: Diffuse cerebral volume loss and cerebral white matter changes consistent with chronic small vessel ischemic disease. No evidence for acute intracranial pathology. as per radiology. Laboratory: CBC: WBC: 8.4, HGB: 14.4, PLT: 311 BMP: Glucose 112, o/w WNL (Creatinine: 0.47) 1508 INR: 2.25 UA with Microscopic: blood: small, Protein albumin: 20, RBC: 30, Amorphous crystals: few, o/w WNL Emergency Department Course: Nursing notes and vitals reviewed. (1514) I performed an exam of the patient as documented above. EKG obtained in the ED, see results above. (1551) Adjusted position of patient with team of techs and nurses to examine pressure wound. IV inserted. Medicine administered as documented above. Blood drawn. This was sent to the lab for further testing, results above. The patient was sent for a head CT while in the emergency department, findings above. (1758) I rechecked the patient and discussed the results of her workup thus far. (181) I consulted with Dr. Razo of the hospitalist services. They are in agreement to accept the patient for admission. Findings and plan explained to the Patient and daughter who consents to admission. Discussed the patient with Dr. Razo, who will admit the patient to a observation bed for further monitoring, evaluation, and treatment. Impression & Plan Medical Decision Making: Patient presents the ER for evaluation of confusion, nausea. Initial vital signs unrevealing. Exam does not reveal objective confusion/disorientation or focal neurological deficits to suggest acute stroke. No fever. Cath urinalysis without evidence of infection. No respiratory symptoms to suggest occult pneumonia. Pressure ulcer over the buttock region does not appear to be superinfected. Abdomen is without peritoneal signs or tenderness to suggest occult intra- abdominal infectious process. Other lab work is unrevealing. Head CT obtained due to anticoagulation and possible mental status change was negative for intracranial hemorrhage or other acute process. Patient was able to ambulate with walkerbut there is concern and patient and daughter's behalf about the potential for falls and versus safety at home. Ultimately she was admitted to the hospital for further monitoring and assessment by physical therapy. Diagnosis: ICD-10-CM 1. Failure to thrive in adult R62.7 2. Disorientation R41.0 Disposition: Admitted to observation under care of Dr. Razo. Scribe Disclosure: I, Marco Jose Martindiana, am serving as a scribe on 01/07/2019 at 3:39 PM to personally document services performed by Altaf Donovan MD based on my observations and the provider's statements to me. Marco Carey 01/07/2019 [facility] EMERGENCY DEPARTMENT Altaf Donovan MD 01/07/19 1858 Altaf Donovan MD 01/07/19 1859 documented in this encounter Miscellaneous Notes Plan of Care - Yolande Dumont RN - 01/08/2019 2:14 PM CDT Patient's After Visit Summary was reviewed with patient and/or daughter. Patient verbalized understanding of After Visit Summary, recommended follow up and was given an opportunity to ask questions. Discharge medications sent home with patient/family: No new medications started. Discharged with transportation aide, nurse and daughter with all belongings. Patient able to ambulate with walker from observation unit to the front of the hospital. Daughter to transfer her back home. Patient medically cleared to discharge. Home health care nurse will do dressing change on coccyx wound. Discharge paperwork faxed to [facility] at [phone]. BP 135/68 (BP Location: Right arm) Pulse 84 Temp 97.7 ??F (36.5 ??C) (Oral) Resp 20 Ht 1.702m (5' 7) Wt (!) 156 kg (344 lb) SpO2 98% BMI 53.88 kg/m?? 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 The patient should have an INR checked at next anticoagulation clinic visit. Plan of Care - Yolande Dumont RN - 01/08/2019 9:45 AM CDT PRIMARY DIAGNOSIS: Altered Mental Status OUTPATIENT/OBSERVATION GOALS TO BE MET BEFORE DISCHARGE: ADLs back to baseline: Yes Activity and level of assistance: Up with standby assistance. Pain status: Pain free. Return to near baseline physical activity: Yes Associate Professor Of Violin Nurse Safe discharge environment identified: Yes Barriers to discharge: Yes Entered by: Yolande Dumont 01/08/2019 9:45 AM Please review provider order for any additional goals. Nurse to notify provider when observation goals have been met and patient is ready for discharge. Patient is alert and oriented x4. VS WNL and documented on the FS. Lung sounds clear in all lobes and patient is on RA. Denies SOB. Active bowel sounds in all 4 quadrants with LBM yesterday. Patient denies pain, urgency, and frequency when voiding. Patient is SL and on a regular diet and tolerating. Lymphedema wraps on. Patient is a SBA with walker and gait belt. Patient states the dressing on her coccyx is changed every other day and its due to be changed tomorrow (her home health nurse does the dressing change). Denies pain. Plan: Discharge today. BP 118/74 (BP Location: Right arm) Pulse 84 Temp 97.9 ??F (36.6 ??C) (Oral) Resp 20 Ht 1.702m (5' 7) Wt (!) 156 kg (344 lb) SpO2 97% BMI 53.88 kg/m?? Plan of Care - Latia Trevino PT - 01/08/2019 9:32 AM CDT Associate Professor Of Violin PT Patient plan for discharge: home Current status: Per RN and pt, no PT needs as pt up independently. PT orders completed. No PT needs,no eval performed. Barriers to return to prior living situation: none per pt and RN Recommendations for discharge: NA Rationale for recommendations: NA Plan of Care - Gaye Simental RN - 01/08/2019 4:50 AM CDT PRIMARY DIAGNOSIS: Altered mental status OUTPATIENT/OBSERVATION GOALS TO BE MET BEFORE DISCHARGE: 1. ADLs back to baseline: Yes 2. Activity and level of assistance: Ax1 with walker 3. Pain status: Pain free. 4. Return to near baseline physical activity: Yes Associate Professor Of Violin Nurse Safe discharge environment identified: Yes Barriers to discharge: Yes Entered by: Gaye Simental 01/08/2019 4:50 AM Please review provider order for any additional goals. Nurse to notify provider when observation goals have been met and patient is ready for discharge. Neuro intact. VSS. Afebrile. Denies pain. Tolerating regular diet. Ax1 with walker. Full skin assessment declined at this time. Mepilex on coccyx per hand off report. CPAP in place. Will continue to monitor. Plan of Care - Gaye Simental RN - 01/08/2019 1:14 AM CDT PRIMARY DIAGNOSIS: Altered mental status OUTPATIENT/OBSERVATION GOALS TO BE MET BEFORE DISCHARGE: ADLs back to baseline: Yes Activity and level of assistance: Ax1 with walker Pain status: Pain free. Return to near baseline physical activity: Yes Associate Professor Of Violin Nurse Safe discharge environment identified: Yes Barriers to discharge: Yes Entered by: Gaye Simental 01/08/2019 1:16 AM Please review provider order for any additional goals. Nurse to notify provider when observation goals have been met and patient is ready for discharge. VSS. Afebrile. Denies pain. Tolerating regular diet. Ax1 with walker. Full skin assessment declined at this time. Mepilex on coccyx per hand off report. CPAP in place. Will continue to monitor. Pharmacy-Anticoagulation Service - Bernabe Vargas RPH - 01/07/2019 8:51 PM CDT Clinical Pharmacy - Warfarin Dosing Consult Pharmacy has been consulted to manage this patient???s warfarin therapy. Indication: DVT/ PE Treatment Therapy Goal: INR 2-3 Warfarin Prior to Admission: Yes Warfarin DATA PROCESSING MANAGER Regimen: 13mg=Mon and Fri, 10mg=ROW Dose Comments: inr=2.25 INR Date Value Ref Range Status 01/07/2019 2.25 (H) 0.86 - 1.14 Final 12/26/2018 2.70 (H) 0.86 - 1.14 Final Comment: This test is intended for monitoring Coumadin therapy. Results are not accurate in patients with prolonged INR due to factor deficiency. Recommend warfarin 13 mg today. Pharmacy will monitor Charlette Brush daily and order warfarin doses to achieve specified goal. Please contact pharmacy as soon as possible if the warfarin needs to be held for a procedure or if the warfarin goals change. Plan of Care - Mike Peña RN - 01/07/2019 8:00 PM CDT Patient Improving PRIMARY DIAGNOSIS: AMS OUTPATIENT/OBSERVATION GOALS TO BE MET BEFORE DISCHARGE: ADLs back to baseline: Yes Activity and level of assistance: Up with standby assistance. Pain status: Pain free. Return to near baseline physical activity: Yes Vitals are Temp: 98.1 ??F (36.7 ??C) Temp src: Oral BP: 105/48 Pulse: 84 Heart Rate: 60 Resp: 18 SpO2: 93 %. Patient is Alert and Oriented x4. They are 1 Assist with Gait Belt and Walker. Pt is a Regular diet.They are complaining of a headache, Tylenol given for pain. Patient is Saline locked. Patient has a pressure injury on bottom. Sacral mepilex applied. Pt has edema in lower extremities and edema wraps on. Plan of care for patient is a PT consult in the morning. Associate Professor Of Violin Nurse Safe discharge environment identified: Yes Barriers to discharge: No Please review provider order for any additional goals. Nurse to notify provider when observation goals have been met and patient is ready for discharge. Plan of Care - Mike Peña RN - 01/07/2019 7:18 PM CDT ROOM # 221 Living Situation (if not independent, order SW consult): home alone with home care Facility name: check writer salesperson: Lyndsay Brush Daughter [phone] Activity level at baseline: SBA with walker Activity level on admit: A1 with walker Patient registered to observation; given Patient Bill of Rights; given the opportunity to ask questions about observation status and their plan of care. Patient has been oriented to the observation room, bathroom and call light is in place. Discussed discharge goals and expectations with patient/family. Pharmacy-Admission Medication History - Marco Jung RPH - 01/07/2019 6:58 PM CDT Admission medication history interview status for this patient is complete. See [facility] admission navigator for allergy information, prior to admission medications and immunization status. Medication history interview source(s):Patient and Family Medication history resources (including written lists, pill bottles, clinic record):med list Primary pharmacy:[facility] Changes made to DATA PROCESSING MANAGER medication list: Added: preservision Deleted: - Changed: lasix to 10 mg daily, tylenol to prn, mycostatin and powder to prn Actions taken by pharmacist (provider contacted, etc):None Additional medication history information:None Medication reconciliation/reorder completed by provider prior to medication history? No Do you take OTC medications (eg tylenol, ibuprofen, fish oil, eye/ear drops, etc)? yes(Y/N) For patients on insulin therapy: no (Y/N) Lantus/levemir/NPH/Mix 70/30 dose: (Y/N) (see Med list for doses) Sliding scale Novolog Y/N If Yes, do you have a baseline novolog pre-meal dose: units with meals Patients eat three meals a day: Y/N How many episodes of hypoglycemia do you have per week: How many missed doses do you have per week: How many times do you check your blood glucose per day: Do you have a Continuous glucose monitor (CGM) Y/N (remind pt that not approved for hospital use) Any Barriers to therapy - Be specific : cost of medications, comfortable with giving injections (ifapplicable), comfortable and confident with current diabetes regimen: Y/N Prior to Admission medications Medication Sig Last Dose Taking? Auth Provider acetaminophen (TYLENOL) 325 MG tablet Take 325 mg by mouth daily as needed Yes Unknown, Entered By History ascorbic acid (VITAMIN C) 500 MG tablet Take 500 mg by mouth daily 01/06/2019 at am Yes Reported, Patient atenolol (TENORMIN) 25 MG tablet Take 1 tablet (25 mg) by mouth 2 times daily 01/07/2019 at x1 Yes Lucero Stevenson MD Calcium Carb-Cholecalciferol (CALCIUM + D3) 600-200 MG-UNIT TABS Take 1 tablet by mouth daily 01/06/2019 at am Yes Reported, Patient cetirizine (ZYRTEC) 10 MG tablet Take 10 mg by mouth 2 times daily 01/07/2019 at x1 Yes Reported, Patient Cholecalciferol (VITAMIN D PO) Take 2,000 Units by mouth daily 01/06/2019 at am Yes Reported, Patient desoximetasone (TOPICORT) 0.05 % GEL Apply topically 2 times daily as needed for inflammation or itching Yes Unknown, Entered By History FEROSUL 325 (65 Fe) MG tablet Take 1 tablet (325 mg) by mouth daily (with breakfast) 01/06/2019 at amYes Lucero Stevenson MD furosemide (LASIX) 20 MG tablet Take 10 mg by mouth daily 01/07/2019 at Unknown time Yes Unknown, Entered By History hydrocortisone 2.5 % ointment Daily as needed Yes Chastity Montero MD losartan (COZAAR) 50 MG tablet Take 1 tablet (50 mg) by mouth daily 01/06/2019 at am Yes Lucero Stevenson MD Multiple Vitamins-Minerals (PRESERVISION/LUTEIN) CAPS Take 1 tablet by mouth 2 times daily 01/06/2019at Unknown time Yes Unknown, Entered By History multivitamin w/minerals (THERA-VIT-M) tablet Take 1 tablet by mouth daily 01/06/2019 at am Yes Unknown, Entered By History nystatin (MYCOSTATIN) 452270 UNIT/GM external cream Apply topically daily as needed Yes Reported, Patient nystatin (MYCOSTATIN) 927691 UNIT/GM external powder Apply topically 2 times daily as needed Yes Unknown, Entered By History WARFARIN SODIUM PO Take 13 mg by mouth On Mon, Past Week at Unknown time Yes Unknown, Entered By History WARFARIN SODIUM PO Take 10 mg by mouth Tu, Mon, Mon, Sat, Sun 01/06/2019 at Unknown time Yes Unknown, Entered By History documented in this encounter Plan of Treatment Upcoming Encounters Date Type Specialty Care Team Description 11/15/2022 Virtual Visit Pharm Haylie Gonzalez, [facility] [address] [facility] [place] [address] (Wo rk) 11/15/2022 Virtual Visit IM/Peds Yane Barraza MD [address] [facility] [place] [address] ([place]o winter) 03/03/2023 Virtual Visit Neurology Erlinda Barber MD [address] [facility] [address] [place] [address] ([place]o winter) documented as of this encounter Procedures Procedure Name Priority Date/Time Associated Comments Diagnosis INR Routine 01/08/2019 6:52 AM Failure to thrive Resu lts for this CDT in adult procedure are i n the results section. CT HEAD W/O CONTRAST STAT 01/07/2019 4:23 PM R esults for this CDT procedure are i n the results section. ROUTINE UA WITH STAT 01/07/2019 3:57 PM Result s for this MICROSCOPIC CDT procedure are i n the results section. CBC WITH PLATELETS & STAT 01/07/2019 3:08 PM R esults for this DIFFERENTIAL CDT procedure are i n the results section. INR Routine 01/07/2019 3:08 PM Results f or this CDT procedure are i n the results section. BASIC METABOLIC PANEL STAT 01/07/2019 3:08 PM Results for this CDT procedure are i n the results section. EKG 12-LEAD, TRACING STAT 01/07/2019 3:03 PM R esults for this ONLY CDT procedure are i n the results section. documented in this encounter Results (ABNORMAL) INR (01/08/2019 6:52 AM CDT) P athologist Signature INR 2.37 (H) 0.86 - 1.14 01/08/2019 [place] 7:21 AM CDT [facility] Specimen Anatomical Collection Method Collection Time Receive d Time (Source) Location / / Volume Laterality Blood specimen 01/08/2019 6:52 AM 019 6:53 (specimen) CDT AM CDT Uriel Maher MD LAB - BLOOD ORDERABLES Performing Organization Address City/State/ZIP Code Phon e Number M [facility] [address], [place] [address] [facility] [address] [place], [place] [address] [facility] [phone] w/o contrast (01/07/2019 4:23 PM CDT) Anatomical Region Laterality Modality Head, SUBRAD CT NEURO, SUBRAD CT NEURO, UMP CT NEURO, Computed Tomography RAD CT Specimen (Source) Anatomical Location Collection Method / Collectio n Time Received Time / Laterality Volume Impressions 01/07/2019 4:29 PM CDT IMPRESSION: Diffuse cerebral volume loss and cerebral white matter changes consistent with chronic small ve ssel ischemic disease. No evidence for acute intracranial patholog y. Radiation dose for this scan was reduced using automated exposure control, adjustment of the mA and/or kV according to patient size, or iterative reconstruction technique. JOSE OLSEN MD Narrative 01/07/2019 4:[address] OF THE HEAD WITHOUT CONTRAST 01/07/2019 4:23 PM COMPARISON: Head CT 10/20/2017 HISTORY: Confusion, on warfarin. TECHNIQUE: [address] images of the head were acquired without IV contrast material. FINDINGS: There is mild diffuse cerebral volume loss. There are subtle patchy areas of decreased density in the cerebral white matter bilaterally that are consistent with seq uela of chronic small vessel ischemic disease. The ventricles and basal cisterns are wi thin normal limits in configuration given the degree of cerebr al volume loss. There is no midline shift. There are no extra-axial fluid collections. No intracranial hemorrhage, mass or rece nt infarct. The visualized paranasal sinuses are wel l-aerated. There is no mastoiditis. There are no fractures of t he visualized bones. Procedure Note Jose Olsen MD - 01/07/2019Forma tting of this note might be different from the original. CT OF THE HEAD WITHOUT CONTRAST 9 4:23 PM COMPARISON: Head CT 10/20/2017 HISTORY: Confusion, on warfarin. TECHNIQUE: [address] images of the head were acquired without IV contrast material. FINDINGS: There is mild diffuse cerebral volume loss. There are subtle patchy areas of decreased density in the cerebral white matter bilaterally that are consistent with seq uela of chronic small vessel ischemic disease. The ventricles and basal cisterns are wi thin normal limits in configuration given the degree of cerebr al volume loss. There is no midline shift. There are no extra-axial fluid collections. No intracranial hemorrhage, mass or rece nt infarct. The visualized paranasal sinuses are wel l-aerated. There is no mastoiditis. There are no fractures of t he visualized bones. IMPRESSION: Diffuse cerebral volume loss and cerebral white matter changes consistent with chronic small ve ssel ischemic disease. No evidence for acute intracranial patholog y. Radiation dose for this scan was reduced using automated exposure control, adjustment of the mA and/or kV according to patient size, or iterative reconstruction technique. JOSE OLSEN MD Altaf Donovan MD IMG CT ORDERABLES (ABNORMAL) UA with Microscopic (01/07/2019 3:57 PM CDT) Component Value Ref Test Analysis Performed At [facility] Range Method Time Signature Color Urine Yellow 01/07/2019 [place] 4:15 PM [facility] Appearance Urine Slightly Cloudy 01/07/2019 [place] 4:15 PM [facility] Glucose Urine Negative NEG^Nega 01/07/2019 [place] tive 4:15 PM [facility] mg/dL HOSPITAL Bilirubin Urine Negative NEG^Nega 01/07/2019 [place] tive 4:15 PM [facility] Ketones Urine Negative NEG^Nega 01/07/2019 [place] tive 4:15 PM [facility] mg/dL [facility] Specific [place] 1.028 1.003 - 01/07/2019 [place] Urine 1.035 4:15 PM [facility] Blood Urine Small (A) NEG^Nega 01/07/2019 [place] tive 4:15 PM [facility] pH Urine 5.5 5.0 - 01/07/2019 [place] 7.0 pH 4:15 PM [facility] Protein Albumin 20 (A) NEG^Nega 01/07/2019 [place] Urine tive 4:15 PM [facility] mg/dL [facility] Urobilinogen Normal 0.0 - 01/07/2019 [place] mg/dL 2.0 4:15 PM [facility] mg/dL [facility] Nitrite Urine Negative NEG^Nega 01/07/2019 [place] tive 4:15 PM [facility] Leukocyte Negative NEG^Nega 01/07/2019 [facility] Esterase Urine tive 4:15 PM [facility] Source Catheterized 01/07/2019 [facility] Urine 3:57 PM [facility] WBC Urine 2 0 - 5 01/07/2019 [place] /[facility] 4:15 PM [facility] RBC Urine 30 (H) 0 - 2 01/07/2019 [place] /[facility] 4:15 PM [facility] Amorphous Few (A) NEG^Nega 01/07/2019 [facility] Crystals tive 4:15 PM [facility] /HPF [facility]OSPITAL Specimen (Source) Anatomical Location Collection Method Collection Time Received Time / Laterality / Volume Urine specimen URINE SPECIMEN 01/07/2019 3:57 01/08/20 19 collection, COLLECTION, PM CDT 4:06 PM CDT catheterized CATHETERIZED / (procedure) Unknown Altaf Donovan MD LAB - URINE ORDERABLES Performing Organization Address City/[facility] Phon e Garo [facility] [address], [place] [address] [place] [address] [address] [place], [place] [address], [facility] [phone] (ABNORMAL) INR (01/07/2019 3:08 PM CDT) P athologist Signature INR 2.25 (H) 0.86 - 1.14 01/07/2019 [place] 3:36 PM [facility] Specimen Anatomical Collection Method Collection Time Receive d Time (Source) Location / / Volume Laterality 01/07/2019 3:08 PM 9 3:22 CDT PM CDT Altaf Donovan MD LAB - BLOOD ORDERABLES Performing Organization Address City/[facility] Phon e Garo [facility] [address], [place] [address] [place] [address] [address] [place], [place] [address], [facility] [phone] (ABNORMAL) Basic metabolic panel (01/07/2019 3:08 PM CDT) Analysis Performed At Patho logist Time Signature Sodium 137 133 - 144 01/07/2019 [place] mmol/L 3:34 PM [facility] Potassium 4.0 3.4 - 5.3 01/07/2019 [place] mmol/L 3:34 PM [facility] Chloride 104 94 - 109 01/07/2019 [place] mmol/L 3:34 PM [facility] Carbon Dioxide 30 20 - 32 01/07/2019 [place] mmol/L 3:39 PM [facility] Anion Gap 3 3 - 14 01/07/2019 [place] mmol/L 3:39 PM [facility] Glucose 112 (H) 70 - 99 01/07/2019 [place] mg/dL 3:39 PM [facility] Urea Nitrogen 16 7 - 30 01/07/2019 [facility] mg/dL 3:39 PM [facility] Creatinine 0.47 (L) 0.52 - 01/07/2019 [facility] 1.04 mg/dL 3:39 PM [facility] GFR Estimate >90 >60 01/07/2019 [place] mL/min/{1. 3:39 PM [facility] 73_m2} HOSPITAL Comment: Non GFR Calc Starting 07/03/2018, serum creatinine ba sed estimated GFR (eGFR) will be calculated using the Chronic Kidney Dise [employer] [facility] Epidemiology Collaboration (CKD-EPI) equation. GFR Estimate If >90 >60 mL/min/{1.73_m2} 01/07/2019 3: 39 PM [facility] Comment: GFR Calc Starting 07/03/2018, serum creatinine ba sed estimated GFR (eGFR) will be calculated using the Chronic Kidney Dise [employer] [facility] Epidemiology Collaboration (CKD-EPI) equation. Calcium 8.7 8.5 - 10.1 mg/dL 01/07/2019 3:39 PM [facility] Specimen Anatomical Collection Method Collection Time Receive d Time (Source) Location / / Volume Laterality Blood specimen 01/07/2019 3:08 PM 019 3:22 (specimen) CDT PM CDT Altaf Donovan MD LAB - BLOOD ORDERABLES Performing Organization Address City/State/ZIP Code Phon e Number [place] [address] [phone] CBC with platelets differential (01/07/2019 3:08 PM CDT) [facility] Method Time Signature WBC 8.4 4.0 - 01/07/2019 [facility] 11.0 3:26 PM [facility] 10e9/L [facility] RBC Count 4.81 3.8 - 5.2 01/07/2019 [facility] 10e12/L 3:26 PM [facility] Hemoglobin 14.4 11.7 - 01/07/2019 [facility] 15.7 g/dL 3:26 PM [facility] Hematocrit 43.5 35.0 - 01/07/2019 [facility] 47.0 % 3:26 PM [facility] MCV 90 78 - 100 01/07/2019 [facility] fl 3:26 PM [facility] MCH 29.9 26.5 - 01/07/2019 [facility] 33.0 pg 3: PM [facility] MCHC 33.1 31.5 - 01/07/2019 [facility] 36.5 g/dL 3: PM [facility] RDW 14.0 10.0 - 01/07/2019 [facility] 15.0 % 3: PM [facility] Platelet Count 311 150 - 450 01/07/2019 [facility] 10e9/L 3: PM [facility] Diff Method Automated 01/07/2019 [facility] Method 3: PM [facility] % Neutrophils 83.1 % 01/07/2019 [facility] 3: PM [facility] % Lymphocytes 9.8 % 01/07/2019 [facility] 3: [facility] % Monocytes 6.0 % 01/07/2019 [facility] 3: PM [facility] % Eosinophils 0.2 % 01/07/2019 [facility] 3: PM [facility] % Basophils 0.5 % 01/07/2019 [facility] 3: PM [facility] % Immature 0.4 % 01/07/2019 [facility] Granulocytes 3: PM [facility] Nucleated RBCs 0 0 /100 01/07/2019 [facility] 3:26 PM [facility] Absolute 7.0 1.6 - 8.3 01/07/2019 [facility] Neutrophil 10e9/L 3:26 PM [facility] Absolute 0.8 0.8 - 5.3 01/07/2019 [facility] Lymphocytes 10e9/L 3: PM [facility] Absolute 0.5 0.0 - 1.3 01/07/2019 [facility] Monocytes 10e9/L 3: PM [facility] Absolute 0.0 0.0 - 0.7 01/07/2019 [facility] Eosinophils 10e9/L 3:26 PM [facility] Absolute 0.0 0.0 - 0.2 01/07/2019 [facility] Basophils 10e9/L 3:26 PM [facility] Abs Immature 0.0 0 - 0.4 01/07/2019 [facility] Granulocytes 10e9/L 3:26 PM CDT [facility] Absolute 0.0 01/07/2019 [place] Nucleated RBC 3:26 PM [facility] Specimen Anatomical Collection Method Collection Time Receive d Time (Source) Location / / Volume Laterality Blood specimen 01/07/2019 3:08 PM 019 3:22 (specimen) CDT PM CDT Altaf Donovan MD LAB - BLOOD ORDERABLES Performing Organization Address City/State/ZIP Code Phon e Number [place] [address] [address] [place] [address] [facility] [address] [phone] EKG 12-lead, tracing only (01/07/2019 3:03 PM CDT) [facility] gist Method Time Signature Interpretation ECG Click View RADIOLOGY Image link RESULTS to view waveform and result Specimen (Source) Anatomical Collection Method Collection Time Re ceived Time Location / / Volume Laterality 01/07/2019 3:03 PM CDT Altaf Donovan MD ECG ORDERABLES Performing Organization Address City/State[place]ZIP [facility] [place] RADIOLOGY RESULTS documented in this encounter Visit Diagnoses Diagnosis Failure to thrive in adult Adult failure to thrive Disorientation Other general symptoms Essential hypertension, benign Morbid obesity (H) Morbid obesity CEFERINO (obstructive sleep apnea) Obstructive sleep apnea (adult) (pediatr ic) [facility] current use of anticoagulant t herapy Generalized weakness Other malaise and fatigue documented in this encounter Administered Medications Inactive Administered Medications - up to 3 most recent administrations Medication Order MAR Action Action Date Dose Rate Site acetaminophen (TYLENOL) tablet 650 Given 01/07/2019 8:32 PM CDT 650 mg mg 650 mg, Oral, EVERY 4 HOURS PRN, mild pain, Starting on Mon01/07/19 at 1910, Alternate ibuprofen (if ordered) with acetaminophen. Maximum acetaminophen dose from all sources = 75 mg/kg/day not to exceed 4 grams/day. atenolol (TENORMIN) tablet 25 mg Given 01/08/2019 9:03 AM CDT 25 mg 25 mg, Oral, 2 TIMES DAILY, First dose on Mon01/07/19 at 2000 Given 01/07/2019 8:47 PM CDT 25 mg furosemide (LASIX) half-tab 10 mg Given 01/08/2019 9:03 AM CDT 10 mg 10 mg, Oral, EVERY MORNING, First dose on Mon01/08/19 at 0800 losartan (COZAAR) tablet 50 mg Given 01/08/2019 9:03 AM CDT 50 mg 50 mg, Oral, DAILY, First dose on Mon01/08/19 at 0800 ondansetron (ZOFRAN) injection 4 mg 4 mg, Intravenous, EVERY 6 HOURS PRN, nausea, vomiting , Administer over 2-5 Minutes, Starting on Mon01/07/19 at 1910, This is Step 1 of nausea and vomiting management. If nausea not resolved in 15 minutes, go t o Step 2 prochlorperazine (COMPAZINE). Irritant. For ordered IV do ses 0.1-4 mg, give IV Push undiluted over 2-5 minutes. ondansetron (ZOFRAN-ODT) ODT tab 4 mg 4 mg, Oral, EVERY 6 HOURS PRN, nausea, v omiting, Starting on Mon01/07/19 at 1910, This is Step 1 of nausea and vomiting management. If n ausea not resolved in 15 minutes, go to Step 2 prochlorperazine (COMPAZINE). Do not push through foil backing. Peel back foil and gently remove. Place on to ngue immediately. Administration with liquid unnecessary W ith dry hands, peel back foil backing and gently remove tablet; do not push oral d isintegrating tablet through foil backing; administer immediately on tongue and oral disintegrati ng tablet dissolves in seconds; then swallow with saliva; liquid not required . warfarin (COUMADIN) tablet 10 mg 10 mg, Oral, ONCE AT 6PM, On Mon01/08/19 at 1800, For 1 dose warfarin (COUMADIN) tablet 13 mg Given 01/07/2019 8:32 PM CDT 13 mg 13 mg, Oral, ONCE, On Mon01/07/19 at 1948, For 1 dose documented in this encounter Active and Recently Administered Medications Times are shown in CDT. Scheduled Medication Order 01/06/2019 01/07/2019 01/08/2019 atenolol (TENORMIN) tablet 25 mg 2046 (Given - P rovider: Mike Peña RN) 902 (Given - Provider: Yolande Dumont, CHANDLER) 25 mg, Oral, 2 TIMES DAILY, First dose on Mon01/07/19 at 2000 furosemide (LASIX) half-tab 10 mg 902 (Given - Provider: Yolande Dumnot RN) 10 mg, Oral, EVERY MORNING, First dose on Mon01/08/19 at 0800 losartan (COZAAR) tablet 50 mg 0 903 (Given - Provider: Yolande Dumont RN) 50 mg, Oral, DAILY, First dose on Mon01/08/19 at 0800 warfarin (COUMADIN) tablet 10 mg 10 mg, Oral, ONCE AT 6PM, Mon01/08/19 at 1800, For 1 dose warfarin (COUMADIN) tablet 13 mg (COMPLETED) 2031 (Given - Provider: Mike Peña RN) 13 mg, Oral, ONCE, Mon01/07/19 at 1948, For 1 dose PRN Medication Order 01/06/2019 01/07/2019 01/08/2019 acetaminophen (TYLENOL) tablet 325 mg 325 mg, Oral, DAILY PRN, mild pain, Star ting Mon01/07/19 at 1943, Maximum acetaminophen dose from all sources = 75 mg/kg/day not to exceed 4 grams/day. acetaminophen (TYLENOL) tablet 650 mg 20 32 (Given - Provider: Mike Peña RN) 650 mg, Oral, EVERY 4 HOURS PRN, mild pa in, Starting Mon01/07/19 at 1910, Alternate ibuprofen (if ordered) with acetaminophen. Maximum acetaminophen dose from all sources = 75 mg/kg/day not to exceed 4 grams/day. melatonin tablet 1 mg 1 mg, Oral, AT BEDTIME PRN, sleep, Start ing Mon01/07/19 at 1910, Do not give unless at least 6 hours of uninterrupted sleep is expected. naloxone (NARCAN) injection 0.1-0.4 mg 0.1-0.4 mg, Intravenous, EVERY 2 MIN PRN , opioid reversal, Starting Mon01/07/19 at 1910, For respiratory rate LESS than or EQUAL [...] usea, vomiting, Administer over 2-5 Minutes, Starting Mon01/07/19 at 1910, This is Step 1 of nausea and vomiting management. If nausea not resolved in 15 minutes, go to Step 2 prochlorperazine (COMPAZIN E). Irritant. For ordered IV doses 0.1-4 mg, give IV Push undiluted over 2-5 minutes. ondansetron (ZOFRAN-ODT) ODT tab 4 mg(Linked Group 1) 4 mg, Oral, EVERY 6 HOURS PRN, nausea, v omiting, Starting Mon01/07/19 at 1910, This is Step 1 of nausea and vomiting management. If nausea not resolved in 15 minutes, go to Step 2 prochlorperazine (COMP AZINE). Do not push through foil backing . Peel back foil and gently remove. Place on tongue immediately. Administration with liquid unnecessary With dry hands, peel back foil backing and gently remove t ablet; do not push oral disintegrating t ablet through foil backing; administer immediately on tongue and oral disintegrating tablet dissolves in seconds; then swallow with saliva; liquid not required. Warfarin Therapy Reminder (Check START D ATE - warfarin may be starting in the FUTURE) CONTINUOUS PRN, Starting Mon01/07/19 at 1910, Until Mon01/08/19 at 1622, *Note to reorder warfarin daily* Pharmacy Warfarin Dosing Service Patient is on Warfarin Therapy - check for daily order Linked Groups Order Group 1: ondansetron (ZOFRAN-ODT) ODT tab 4 mgJump to med 4 mg, Oral, EVERY 6 HOURS PRN, nausea, v omiting, Starting Mon01/07/19 at 1910
This is Step 1 of nausea and vomiting management. If nausea not resolved in 15 minutes, go to St ep 2 prochlorperazine (COMPAZINE). Do no t push through foil backing. Peel back foil and gently remove. Place on tongue immediately. Administration with liquid unnecessary With dry hands, peel b ack foil backing and gently remove table t; do not push oral disintegrating tablet through foil backing; administer immediately on tongue and oral disintegrating tablet dissolves in seconds; then swallow with saliva; liquid not required.
Or ondansetron (ZOFRAN) injection 4 mgJump to med 4 mg, Intravenous, EVERY 6 HOURS PRN, na usea, vomiting, Administer over 2-5 Minutes, Starting 01/07/19 at 1910
This is Step 1 of nausea and vomiting management. If nausea not resolved in 15 minutes, go to Step 2 prochlorperazine (COMPAZINE). Irritant. For ordered IV doses 0.1-4 mg, give IV Push undiluted over 2-5 minutes.
documented in this encounter Care Teams [employer] Relationship Specialty Start Date End Date Lucero Stevenson MD PCP - General Pediatrics 10/11/11 04/22/19 Chastity Montero MD MD Dermatology 09/23/14 [address] [facility] [address] [place], [place] [address] Johnnie Alcocer MD Surgeon General Surgery 03/23/17 [address] [facility] [address] [place], [place] [id number] Lucero Stevenson MD Assigned PCP 06/17/18 11/09/[address] [id number] documented as of this encounter
--- OUTSIDE RECORDS SUMMARY | 2022-06-15 13:07 | XMS_ITS | Encounter Summary ---
:1945 Author Organization [facility] Address [address] [place] [address] Care Team Providers Name Role Phone Lucero Stevenson MD Primary Care Provider [phone] Chastity Montero MD Unavailable [phone] Johnnie Alcocer MD Unavailable Lucero Stevenson MD Unavailable [phone] Encounter Details Date Type Department Care Team Description 12/13/2018 Anticoagulation Therapy [facility] snf current use of 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 (Primary Dx); Visit Clinic [facility] Personal history of pulmonar y embolism [address] [facility] [address] [place] [address] Social [...] slept in a long term (including now)? Sex Assigned at Date Recorded Female 12/24/2018 12:35 PM CDT documented as of this encounter Progress Notes Qing Guy RN - 12/13/2018 3:00 PM CDT ANTICOAGULATION FOLLOW-UP Patient Name: Charlette Brush Date: 12/13/2018 Contact Type: Telephone Call received from [facility] nurse, with INR result. Follow up instructions given over the phone to Home Care nurse for warfarin management. SUBJECTIVE: Patient Findings Comments: Per homecare nurse: The patient was assessed for diet, medication, missed or extra doses, bruising or bleeding, with no problem findings. Clinical Outcomes Comments: Per homecare nurse: The patient was assessed for diet, medication, missed or extra doses, bruising or bleeding, with no problem findings. OBJECTIVE INR Date Value Ref Range Status 12/13/2018 2.7 (A) 0.9 - 1.1 Final ASSESSMENT / PLAN INR assessment THER Recheck INR In: 2 WEEKS INR Location Homecare INR Anticoagulation Summary As of 12/13/2018 INR goal: 2.0-3.0 TTR: 79.8 % (3.2 y) INR used for dosin.7 (12/13/2018) Warfarin maintenance plan: 13 mg (3 mg x 1 and 10 mg x 1) every Mon, Fri; 10 mg (10 mg x 1) all other days Full warfarin instructions: 13 mg every Mon, Fri; 10 mg all other days Weekly warfarin total: 76 mg No change documented: Qing Guy RN Plan last modified: Qing Guy RN (10/11/2018) Next INR check: 12/27/2018 Target end date: Indefinite Indications 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 embolism [Z86.711] snf current use of 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 [Z79.01] Anticoagulation Episode Summary INR check location: Anticoagulation Clinic Preferred lab: Send INR reminders to: [facility] Comments: 7.5mg, 3mg, 6mg & 10mg tabs - devaughn dose / [facility] [phone] / APPT CARD ONLY Anticoagulation Care Providers Provider Role Specialty Phone number Lucero Stevenson MD Internal Medicine [phone] See the Encounter Report to view Anticoagulation Flowsheet and Dosing Calendar (Go to Encounters tabin chart review, and find the Anticoagulation Therapy Visit) INR is therapeutic today. Patient will continue same maintenance dose. Follow up in 2 weeks or sooner if needed. Qing Guy, RN documented in this encounter Plan of Treatment Upcoming Encounters Date Type Specialty Care Team Description 11/15/2022 Virtual Visit Pharm Haylie Gonzalez, [facility] [address] [place] [address] (Wo rk) 11/15/2022 Virtual Visit IM/Peds Yane Barraza MD [address] [facility] [place] [address] (Wo rk) 03/03/2023 Virtual Visit Neurology Erlinda Barber MD [address] [facility] [address] [place] [address] (Wo rk) documented as of this encounter Procedures Procedure Name Priority Date/Time Associated Diagnosis Comme nts INR Routine 12/13/2018 2:54 AM Results f or this CDT procedure are i n the results section . documented in this encounter Results (ABNORMAL) INR (12/13/2018 2:54 AM CDT) P athologist Signature INR 2.7 (A) 0.9 - 1.1 EXTERNAL LAB Specimen (Source) Anatomical Collection Method Collection Time Re ceived Time Location / / Volume Laterality Blood specimen 12/13/2018 2:54 AM (specimen) CDT Resulting Agency Comment [facility] Lucero Stevenson MD LAB - BLOOD ORDERABLES Performing Organization Address City/State/ZIP Code Phon e Number EXTERNAL LAB EXTERNAL LAB External Lab documented in this encounter Visit Diagnoses Diagnosis snf current use of anticoagulant t herapy - Primary 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 embolism documented in this encounter Care Teams Audit Partner Relationship Specialty Start Date End Date Lucero Stevenson MD PCP - General Pediatrics 10/11/11 04/22/19 Chastity Montero MD MD Dermatology 09/23/14 [address] [facility] [address] [place], [place] [phone] Johnnie Alcocer MD Surgeon General Surgery 03/23/17 [address] [facility] [address] [place], [place] [phone] Lucero Stevenson MD Assigned PCP 06/17/18 11/09/19 [facility] [address] [place], [place] [phone] documented as of this encounter
--- OUTSIDE RECORDS SUMMARY | 2022-06-15 13:07 | XMS_ITS | Encounter Summary ---
:1945 Author Organization [facility] Address [address] [place] [id number] Care Team Providers Name Role Phone Lucero Stevenson MD Primary Care Provider Chastity Montero MD Unavailable [phone] Johnnie Alcocer MD Unavailable Lucero Stevenson MD Unavailable [phone] Danni Marcus RN Unavailable Unavailable Reason for Referral Diagnostic Imaging MRI (Routine) - Closed Specialty Diagnoses / Procedures Referred By Contact Refer red To Contact Radiology. Diagnoses Transient confusion Lucero Stevenson, Mri Rscc Procedures MR Brain w/o & w Contrast [id number] [facility] [address] [place] [id number] Fax: Referral ID Status Reason Start Date Expiration Date Visits Requ ested Visits Authorized [id number] Closed 01/09/2019 01/09/2020 1 1 Specialty Diagnoses / Procedures Referred By Contact Refer red To Contact Lucero Stevenson MD [facility] [address] [place] [id number] Referral ID Status Reason Start Date Expiration Date Visits Requ ested Visits Authorized Scheduling Instructions ANTICOAGULATION CLINIC COLLABORATIVE [place] ACTICE AGREEMENT The following represents a collaborative practice agreement among the physicians of the Clinic and staff of the Anticoagulat ion Clinic Service ([facility]) Physicians shall: 1. Refer patients requiring anticoagulat ion to a specialty service staffed by personnel of Pharmacy Services and super vised by Clinic physicians. 2. Respond to questions and referrals fr pharmacy staff regarding delinquent or difficult patients. 3. Inform the [facility] staff when a new patie nt is [...] sergio cated. Reason for Visit Reason Comments Physical Hospital F/U Encounter Details Date Type Department Care Team Description 01/09/2019 Office Visit [facility] Albert Stevenson MD [facility] [address] [place] [id number] Encounter for Medicare annual wellness e xam (Primary Dx); Clinic Yarelis martínez, Kyle Sidhu Pal Transient confusion; [address] hematuria; [address] Essential hypertension, josy gn; [address] Pressure ulcer of ischium, l eft, stage IV (H); [place] [phone] Lymphedema of both lower ext remities; [phone] Morbid obesity (H); CEFERINO (obstructiv e sleep apnea); Pre-diabetes; Senile cataract , unspecified age-related cataract type, unspecified laterality; Macular degener ation (senile) of retina; Lipid screening ; Personal histor y of pulmonary embolism Social History Tobacco Use Types Packs/Day Years [...] Sign Reading Time Taken Comments Blood Pressure 138/81 01/09/2019 10:50 AM CDT Pulse 85 01/09/2019 9:35 AM CDT Temperature 36.6 ??C (97.8 ??F) 01/09/2019 9:35 AM CDT Respiratory Rate - - Oxygen Saturation 94% 01/09/2019 9:35 AM CDT Inhaled Oxygen Concentration - - Weight 154.3 kg (340 lb 1.6 oz) 01/09/2019 9:35 AM CDT Height 170.2 cm (5' 7) 01/09/2019 9:35 AM CDT Body Mass Index 53.27 01/09/2019 9:35 AM CDT documented in this encounter Patient Instructions Patient InstructionsDanni Marcus RN - 01/09/2019 9:20 AM CDT Charlette, It was good to see you in clinic today. You should be called by [facility] Radiology for an MRI in 1-2 days. If not, you may call the operating room scheduler at [phone]. We will contact you about home care options after speaking with our home care nurse. You will need to have a home therapy teacher get a urine specimen by catheter in one month to recheck for blood in the urine. No medication changes today. documented in this encounter Progress Notes Lucero Stevenson MD - 01/09/2019 9:20 AM CDT SUBJECTIVE: Charlette Brush is a 74 year old female who presents for Preventive Visit. Are you in the first 12 months of your Medicare coverage? No Healthy Habits: In general, how would you rate your overall health? Good Duration of exercise: 45-60 minutes Do you usually eat at least 4 servings of fruit and vegetables a day, include whole grains & fiber and avoid regularly eating high fat or junk foods? Yes Taking medications regularly: Yes Ability to successfully perform activities of daily living: Transportation requires assistance, shopping requires assistance, preparing meals requires assistance, housework requires assistance and bathing requires assistance Home Safety: No safety concerns identified Hearing Impairment: Need to ask people to speak up or repeat themselves In the past 6 months, have you been bothered by leaking of urine? No In general, how would you rate your overall mental or emotional health? Good PHQ-2 Total Score: 0 Additional concerns today: Yes Do you feel safe in your environment? Yes Do you have a Health Care Directive? No: Advance care planning was reviewed with patient; patient declined at this time. Fall risk Fallen 2 or more times in the past year?: No Any fall with injury in the past year?: No Cognitive Screening 1) Repeat 3 items (Leader, Season, Table) 2) Clock draw:NORMAL 3) 3 item recall: Recalls 3 objects Results: 3 items recalled: COGNITIVE IMPAIRMENT LESS LIKELY Mini-CogTM Copyright S Le. Licensed by the author for use in [facility]; reprintedwith permission (kameron@[facility]). All rights reserved. Do you have sleep apnea, excessive snoring or daytime drowsiness?: yes Uses CPAP Reviewed and updated as needed this visit by clinical staff Tobacco Allergies Meds Soc Hx Reviewed and updated as needed this visit by Provider Social History Tobacco Use ??? Smoking status: Never Smoker ??? Smokeless tobacco: Never Used Substance Use Topics ??? Alcohol use: No Frequency: Never Alcohol Use 01/05/2019 Prescreen: >3 drinks/day or >7 drinks/week? Not Applicable Prescreen: >3 drinks/day or >7 drinks/week? - Hospital Follow-up Admitted to [facility] on 01/07/19 Discharged-01/08/19 For weakness and transient confusion Microscopic hematuria Patient reports that she still doesn't feel normal since discharge. Doesn't recall any dizziness preceding confusion yesterday. Difficulty recalling who called the ambulance. Patient concerned about transient confusion. Last occurrence was 2.5 months ago. States that episodes last a day. Patient has noted that she has difficulty responding to timely questions. She understands the questions, but unsure how to respond to them. Patient receives Lymphedema therapy three times per week. Home care nurse is doing dressing changes every other day. [employer] ASSIST[employer] services thru [employer]-covered thru her Long-term insurance. Anxiety Patient notes anxiety regarding the health of her eyes. She is planning to have cataract surgery, but is seeing a retinal specialist later this week to evaluate her for macular degeneration. Also comments that she is worried about her daughter, who has lost her job. Current providers sharing in care for this patient include:Patient Care Team: Lucero Stevenson MD as PCP - General (Pediatrics) Chastity Montero MD as MD (Dermatology) Johnnie Alcocer MD as Surgeon (General Surgery) Lucero Stevenson MD as Assigned PCP The following health maintenance items are reviewed in Epic and correct as of today: Health Maintenance Topic Date Due ??? ZOSTER IMMUNIZATION (1 of 2) 01/05/1996 ??? OP ANNUAL INR REFERRAL 01/18/2017 ??? MEDICARE ANNUAL WELLNESS VISIT 01/03/2018 ??? MICROALBUMIN 01/03/2018 ??? LIPID 12/31/2018 ??? A1C 05/30/2019 ??? BMP 07/09/2019 ??? FALL RISK ASSESSMENT 08/01/2019 ??? ANNUAL REVIEW OF HM ORDERS 12/27/2019 ??? MAMMO SCREENING 12/26/2020 ??? ADVANCE CARE PLANNING 01/03/2022 ??? DTAP/TDAP/TD IMMUNIZATION (3 - Td) 12/30/2024 ??? COLONOSCOPY 01/13/2025 ??? DEXA Completed ??? HEPATITIS C SCREENING Completed ??? PHQ-2 Completed ??? INFLUENZA VACCINE Completed ??? PNEUMOCOCCAL IMMUNIZATION 65+ LOW/MEDIUM RISK Completed ??? IPV IMMUNIZATION Aged Out ??? MENINGITIS IMMUNIZATION Aged Out Review of Systems Constitutional: Negative. HENT: Negative. Eyes: Positive for visual disturbance. Respiratory: Negative. Cardiovascular: Positive for peripheral edema. Gastrointestinal: Negative. Endocrine: Negative. Breasts: negative. Genitourinary: Negative. Musculoskeletal: Negative. Allergic/Immunologic: Negative. Hematological: Negative. Psychiatric/Behavioral: The patient is nervous/anxious. Neurological-Transient confusion OBJECTIVE: BP 138/81 (BP Location: Right arm, Patient Position: Sitting, Cuff Size: Thigh) Pulse 85 Temp 97.8 ??F (36.6 ??C) (Oral) Ht 1.702 m (5' 7) Wt (!) 154.3 kg (340 lb 1.6 oz) SpO2 94% BMI 53.27 kg/m?? Estimated body mass index is 53.27 kg/m?? as calculated from the following: Height as of this encounter: 1.702 m (5' 7). Weight as of this encounter: 154.3 kg (340 lb 1.6 oz). Vitals taken by Ashli Marcus RN Physical Exam GENERAL: alert and no distress. Morbidly obese with severe lymphedema, uses a walker. EYES: Eyes grossly normal to inspection, PERRL and conjunctivae and sclerae normal HENT: ear canals and TM's normal, nose and mouth without ulcers or lesions. Uses hearing aids bilaterally NECK: no adenopathy, no asymmetry, masses, or scars and thyroid normal to palpation RESP: lungs clear to auscultation - no rales, rhonchi or wheezes CV: regular rate and rhythm, normal S1 S2, no S3 or S4, no murmur, click or rub ABDOMEN: soft, nontender, and bowel sounds normal MS: no gross musculoskeletal defects noted. Massive lymphedema bilateral lower extremities, lymphedema wraps in place. SKIN: no suspicious lesions or rashes NEURO: Normal strength and tone, mentation intact and speech normal PSYCH: patient initially seemed to be speaking and thinking slowly with a flat affect, but became more appropriate as the visit progressed. Diagnostic Test Results: Labs reviewed in [facility] Results for orders placed or performed during [...] patient size, or iterative reconstruction technique. JOSE ZHANG MD CBC with platelets differential Result Value Ref Range WBC 8.4 4.0 - 11.0 10e9/L RBC Count 4.81 3.8 - 5.2 10e12/L Hemoglobin 14.4 11.7 - 15.7 g/dL Hematocrit 43.5 35.0 - 47.0 % MCV 90 78 - 100 fl MCH 29.9 26.5 - 33.0 pg MCHC 33.1 31.5 - 36.5 g/dL RDW 14.0 10.0 - 15.0 % Platelet Count 311 150 - 450 10e9/L Diff Method Automated Method % Neutrophils 83.1 % % Lymphocytes 9.8 % % Monocytes 6.0 % % Eosinophils 0.2 % % Basophils 0.5 % % Immature Granulocytes 0.4 % Nucleated RBCs 0 0 /100 Absolute Neutrophil 7.0 1.6 - 8.3 10e9/L Absolute Lymphocytes 0.8 0.8 - 5.3 10e9/L Absolute Monocytes 0.5 0.0 - 1.3 10e9/L Absolute Eosinophils 0.0 0.0 - 0.7 10e9/L Absolute Basophils 0.0 0.0 - 0.2 10e9/L Abs Immature Granulocytes 0.0 0 - 0.4 10e9/L Absolute Nucleated RBC 0.0 Basic metabolic panel Result Value Ref [facility] Sodium 137 133 - 144 mmol/L Potassium 4.0 3.4 - 5.3 mmol/L Chloride 104 94 - 109 mmol/L Carbon Dioxide 30 20 - 32 mmol/L Anion Gap 3 3 - 14 mmol/L Glucose 112 (H) 70 - 99 mg/dL Urea Nitrogen 16 7 - 30 mg/dL Creatinine 0.47 (L) 0.52 - 1.04 mg/dL GFR Estimate >90 >60 mL/min/[1.73_m2] GFR Estimate If Black >90 >60 mL/min/[1.73_m2] Calcium 8.7 8.5 - 10.1 mg/dL UA with Microscopic Result Value Ref Range Color Urine Yellow Appearance Urine Slightly Cloudy Glucose Urine Negative NEG^Negative mg/dL Bilirubin Urine Negative NEG^Negative Ketones Urine Negative NEG^Negative mg/dL Specific [place] Urine 1.028 1.003 - 1.035 Blood Urine Small (A) NEG^Negative pH Urine 5.5 5.0 - 7.0 pH Protein Albumin Urine 20 (A) NEG^Negative mg/dL Urobilinogen mg/dL Normal 0.0 - 2.0 mg/dL Nitrite Urine Negative NEG^Negative Leukocyte Esterase Urine Negative NEG^Negative Source Catheterized Urine WBC Urine 2 0 - 5 /HPF RBC Urine 30 (H) 0 - 2 /HPF Amorphous Crystals Few (A) NEG^Negative /HPF INR Result Value Ref Range INR 2.25 (H) 0.86 - 1.14 INR Result Value Ref Range INR 2.37 (H) 0.86 - 1.14 EKG 12-lead, tracing only Result Value Ref [facility] Interpretation ECG Click View Image link to view waveform and result ASSESSMENT / PLAN: Transient confusion Periodic episodes of confusion over the past 2 months, hospitalized yesterday due to concerns. CT done 01/07/19-Normal MRI of brain ordered to rule out TIAs Possibility that vertigo episodes may be the cause of confusion. Will consider Sleep clinic referral to assess functioning of CPAP and possible hypercapnea contributing to symptoms. Pt has difficulties with transportation that will limit her ability to get to this appointment If symptoms not improving, will refer to Neurology. Consideration that anxiety and stress may be contributing to transient confusion; pt to see if theseepisodes are related to times where anxiety seems worse. Cataract Followed by Opthamology-considering cataract surgery. Patient has appointment with Retina Specialist at [facility] on 01/11. 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 Cautioned patient she should not be driving. Essential hypertension, benign Blood pressure elevated initially, repeat normal. Continue losartan 50mg daily. Renal function stable; due for microalbumin. Lymphedema of both lower extremities Receiving Lymphedema therapy three times per week thru Home care with wraps. Still taking lasix 10mg po daily; not sure its doing much, could consider stopping at her next visit. Macular degeneration (senile) of retina Appointment with Retina Specialist at [facility] on 01/11/19. CEFERINO (obstructive sleep apnea) Uses CPAP nightly. Consider referral to sleep medicine to reassess functioning of CPAP Due to transportation issues, will review MRI results prior to making this recommendation. Microscopic hematuria Found on cath UA in ER 2 nights ago, may be traumatic. Home care to repeat UA with catheterization in one month. Patient is considering changing to [facility] home care-will notify appropriate agency after patient makes decision. Pressure ulcer of ischium, left, stage IV (H) Home care wound nurse assessing wound every other day. Reports wound is smaller, still with significant discharge. Patient is seen by [facility]. Last visit was in October 2018. Discussed possibility of changing home care to homecare and [facility] care [facility]. Will need to check if current services are transferable. Encounter for Medicare annual wellness exam -mammogram and colonoscopy UTD -no further pap's due to age -consider shingles vaccine in the future; would need to have done at a pharmacy 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 embolism On lifetime coumadin, followed by INR clinic. No change to therapy. Morbid obesity (H) This is significantly contributing to difficulties with wound healing. Bmi is likely overestimated due to severity of lymphedema. Pt is working on exercise but limited by her wound and lymphedema Working on diet, has continued to lose weight. End of Life Planning: Patient currently has an advanced directive: No. I have verified the patient's ablity to prepare an advanced directive/make health care decisions. Literature was provided to assist patient in preparingan advanced directive. COUNSELING: Reviewed preventive health counseling, as reflected in patient instructions Regular exercise Healthy diet/nutrition Vision screening Dental care Estimated body mass index is 53.27 kg/m?? as calculated from the following: Height as of this encounter: 1.702 m (5' 7). Weight as of this encounter: 154.3 kg (340 lb 1.6 oz). Weight management plan: Discussed healthy diet and exercise guidelines reports that she has never smoked. She has never used smokeless tobacco. Appropriate preventive services were discussed with this patient, including applicable screening as appropriate for cardiovascular disease, diabetes, osteopenia/osteoporosis, and glaucoma. As appropriate for age/gender, discussed screening for colorectal cancer, prostate cancer, breast cancer, and cervical cancer. Checklist reviewing preventive services available has been given to the patient. Reviewed patients plan of care and provided an AVS. The Complex Care Plan (for patients with higher acuity and needing more deliberate coordination of services) for Charlette meets the Care Plan requirement. This Care Plan has been established and reviewed with the Patient. Counseling Resources: ATP IV Guidelines Pooled Cohorts Equation Calculator Breast Cancer Risk Calculator FRAX Risk Assessment ICSI Preventive Guidelines Dietary Guidelines for Americans, 2010 USDA's MyPlate ASA Prophylaxis Lung CA Screening Scribe Disclosure: I, Danni Marcus, am serving as a scribe; to document services personally performed by Dr. Stevenson- -based on data collection and the provider's [...] made. Electronically signed by: Lucero Stevenson MD [facility] Identified Health Risks: documented in this encounter Miscellaneous Notes Assessment & Plan Note - Lucero Stevenson MD - 01/09/2019 12:00 PM CDT Associated Problem(s): Morbid obesity -- BMI 55-60 This is significantly contributing to difficulties with wound healing. Bmi is likely overestimated due to severity of lymphedema. Pt is working on exercise but limited by her wound and lymphedema Working on diet, has continued to lose weight. 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 No change to therapy. Assessment & Plan Note - Lucero Stevenson MD - 01/09/2019 11:51 AM CDT Associated Problem(s): Encounter for Medicare annual wellness exam (Resolved 02/06/2019) -mammogram and colonoscopy UTD -no further pap's due to age -consider shingles vaccine in the future; would need to have done at a pharmacy Assessment & Plan Note - Danni Marcus, RN - 01/09/2019 10:13 AM CDTAssociated Problem(s): Pressure injury of left buttock, stage 4 (H) (Resolved 10/09/2021) Home care wound nurse assessing wound every other day. Reports wound is smaller, still with significant discharge. Patient is seen by [facility]. Last visit was in October 2018. Discussed possibility of changing home care to [facility]care and [facility] care [facility]. Will need to check if current services are transferable. Assessment & Plan Note - Danni Marcus RN - 01/09/2019 10:03 AM CDTAssociated Problem(s): Microscopic hematuria Found on cath UA in ER 2 nights ago, may be traumatic. Home care to repeat UA with catheterization in one month. Patient is considering changing to [facility]-will notify appropriate agency after patient makes decision. Assessment & Plan Note - Danni Marcus RN - 01/09/2019 10:01 AM CDTAssociated Problem(s): CEFERINO on CPAP Uses CPAP nightly. Consider referral to sleep medicine to reassess functioning of CPAP Due to transportation issues, will review MRI results prior to making this recommendation. Assessment & Plan Note - Danni Marcus RN - 01/09/2019 10:00 AM CDTAssociated Problem(s): Macular degeneration (senile) of retina Appointment with Retina Specialist at [facility] on 01/11/19. Assessment & Plan Note - Danni Marcus RN - 01/09/2019 9:58 AM CDTAssociated Problem(s): Lymphedema of both lower extremities Receiving Lymphedema therapy three times per week thru Home care with wraps. Still taking lasix 10mg po daily; not sure its doing much, could consider stopping at her next visit. Assessment & Plan Note - Danni Marcus RN - 01/09/2019 9:57 AM CDTAssociated Problem(s): Essential hypertension, benign Blood pressure elevated initially, repeat normal. Continue losartan 50mg daily. Renal function stable; due for microalbumin. Assessment & Plan Note - Danni Marcus RN - 01/09/2019 9:56 AM CDTAssociated Problem(s): Cataract (Resolved 05/06/2020) Followed by Opthamology-considering cataract surgery. Patient has appointment with Retina Specialist at [facility] on 01/11. 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 Cautioned patient she should not be driving. Assessment & Plan Note - Danni Marcus RN - 01/09/2019 9:53 AM CDTAssociated Problem(s): Transient confusion (Resolved 04/23/2019) Periodic episodes of confusion over the past 2 months, hospitalized yesterday due to concerns. CT done 01/07/19-Normal MRI of brain ordered to rule out TIAs Possibility that vertigo episodes may be the cause of confusion. Will consider Sleep clinic referral to assess functioning of CPAP and possible hypercapnea contributing to symptoms. Pt has difficulties with transportation that will limit her ability to get to this appointment If symptoms not improving, will refer to Neurology. Consideration that anxiety and stress may be contributing to transient confusion; pt to see if theseepisodes are related to times where anxiety seems worse. documented in this encounter Plan of Treatment Upcoming Encounters Date Type Specialty Care Team Description 11/15/2022 Virtual Visit Pharm Haylie Gonzalez, [facility] [address] [facility] [address] (Lena max) 11/15/2022 Virtual Visit IM/Peds Yane Barraza MD [address] [facility] [place] [place] [address] (Lena max) 03/03/2023 Virtual Visit Neurology Erlinda Barber MD [address] [place] [address] (Lena max) Scheduled Referrals Name Type Priority Associated Diagnoses Order S chedule INR CLINIC REFERRAL Referral Routine Ordered: 01/09/2019 documented as of this encounter Procedures Procedure Name Priority Date/Time Associated Comments Diagnosis ALBUMIN RANDOM URINE Routine 01/09/2019 10:53 Essential Res ults for this QUANTITATIVE AM CDT hypertension, procedure are in benign the results section. LIPID REFLEX TO DIRECT Routine 01/09/2019 10:53 Lipid screenin g Results for this LDL PANEL AM CDT procedure are i n the results section. COMPREHENSIVE Routine 01/09/2019 10:53 Essential Results fo r this METABOLIC PANEL AM CDT hypertension, procedure a re in benign the results Pre-diabetes section. Transient confusion documented in this encounter Results (ABNORMAL) *UA reflex to Microscopic and Culture ([facility] (02/07/2019 12:10 PM CDT) [facility] Method Time Signature Color Urine Yellow 02/07/2019 [place] 12:25 PM [facility]INICS [facility] Appearance Urine Clear 02/07/2019 [facility] 12:25 PM [facility]IN[facility] Glucose Urine Negative NEG^Negat 02/07/2019 [place] vance mg/dL 12:25 PM CLINICS CDT [facility] Bilirubin Urine Negative NEG^Negat 02/07/2019 [place] [facility]ance 12:25 PM CLINICS CDT [facility] Ketones Urine Negative NEG^Negat 02/07/2019 [place] [facility]ance mg/dL 12:25 PM CLINICS CDT [facility] Specific [place] 1.015 1.003 - 02/07/2019 [place] Urine 1.035 12:25 PM CLINICS CDT [facility] Blood Urine Trace (A) NEG^Negat 02/07/2019 [place] [facility] 12:25 PM CLINICS CDT [facility] pH Urine 7.0 5.0 - 7.0 02/07/2019 [place] pH 12:25 PM CLINICS CDT [facility] Protein Albumin Negative NEG^Negat 02/07/2019 [place] Urine vance mg/dL 12:25 PM CLINICS CDT [facility] Urobilinogen 0.2 0.2 - 1.0 02/07/2019 [place] Urine EU/dL 12:25 PM CLINICS CDT [facility] Nitrite Urine Negative NEG^Negat 02/07/2019 [place] [facility]ance 12:25 PM CLINICS CDT [facility] Leukocyte Negative NEG^Negat 02/07/2019 [place] Esterase Urine vance 12:25 PM CLINICS CDT [facility] Source Midstream 02/07/2019 [place] Urine 12:16 PM CLINICS CDT [facility] Specimen (Source) Anatomical Collection Method Collection Time Re ceived Time Location / / Volume Laterality Examination of 02/07/2019 12:10 9 midstream urine PM CDT 12:16 PM CDT specimen (procedure) Lucero Stevenson MD LAB - URINE ORDERABLES Performing Organization Address City/State/ZIP Code Phon e Number [facility] [address] [place] [address] MR Brain w/o & w Contrast (01/16/2019 [...] MD Lucero Stevenson MD IMG MRI ORDERABLES (ABNORMAL) Comprehensive metabolic panel (01/09/2019 10:53 AM CDT) athologist Signature Sodium 142 133 - 144 01/09/2019 [facility] mmol/L 2:08 PM CDT [facility]IN[facility] Potassium 4.0 3.4 - 5.3 01/09/2019 [facility] mmol/L 2:08 PM CDT [facility] Chloride 109 94 - 109 01/09/2019 [facility] mmol/L 2:08 PM CDT [facility] Carbon Dioxide 23 20 - 32 01/09/2019 [facility] mmol/L 2:22 PM CDT [facility] Anion Gap 10 3 - 14 01/09/2019 [facility] mmol/L 2:22 PM CDT [facility] Glucose 89 70 - 99 01/09/2019 [facility] mg/dL 2:22 PM CDT [facility] Urea Nitrogen 20 7 - 30 01/09/2019 [facility] mg/dL 2:22 PM CDT [facility] Creatinine 0.55 0.52 - 01/09/2019 [facility] 1.04 mg/dL 2:22 PM CDT [facility] GFR Estimate >90 >60 01/09/2019 [facility] mL/min/{1. 2:22 PM CDT [facility]INICS 73_m2} [facility] Comment: Non GFR Calc Starting 07/03/2018, serum creatinine ba sed estimated GFR (eGFR) will be calculated using the Chronic Kidney Dise ase Epidemiology Collaboration (CKD-EPI) equation. GFR Estimate If >90 >60 mL/min/{1.73_m2} 01/09/2019 2: 22 PM [facility] Black T [facility] Comment: GFR Calc Starting 07/03/2018, serum creatinine ba sed estimated GFR (eGFR) will be calculated using the Chronic Kidney Dise ase Epidemiology Collaboration (CKD-EPI) equation. Calcium 8.9 8.5 - 10.1 01/09/2019 2:22 PM [facility] mg/dL [facility] Bilirubin Total 0.6 0.2 - 1.3 01/09/2019 2:28 PM [facility] [place] mg/dL [facility] Albumin 3.1 (L) 3.4 - 5.0 g/dL 01/09/2019 2:[address] [facility] Protein Total 7.5 6.8 - 8.8 g/dL 01/09/2019 2:28 PM [facility] Alkaline Phosphatase 102 40 - 150 U/L 01/09/2019 2:28 PM [facility] ALT 24 0 - 50 U/L 01/09/2019 2:28 PM [facility] AST 23 0 - 45 U/L 01/09/2019 2:28 PM [facility] Specimen Anatomical Collection Method Collection Time Receive d Time (Source) Location / / Volume Laterality Blood specimen 01/09/2019 10:53 9 (specimen) AM CDT 10:58 AM CDT Lucero Stevenson MD LAB - BLOOD ORDERABLES Performing Organization Address City/State/ZIP Code Phon e Number [facility] [address] [phone] [facility] [address] [place], [place] [address] [facility] [address] [address], U [phone] (ABNORMAL) Albumin Random Urine Quantitative with Creat Ratio (01/09/2019 10:53 AM CDT) [facility] Method Time Signature Creatinine 112 mg/dL 01/09/2019 [place] Urine 5:00 PM CDT [facility] Albumin Urine 34 mg/L 01/09/2019 [place] mg/L 4:59 PM [facility] Albumin Urine 30.27 (H) 0 - 25 01/09/2019 [place] mg/g Cr mg/g Cr 5:00 PM T [facility] Specimen Anatomical Collection Method Collection Time Receive d Time (Source) Location / / Volume Laterality Urine specimen 01/09/2019 10:53 9 (specimen) AM CDT 10:58 AM CDT Lucero Stevenson MD LAB - URINE ORDERABLES Performing Organization Address City/State/ZIP Code Phon e Number [facility] [address] [place], [place] [address] [facility] [address] [place] [address], [place] [phone] (ABNORMAL) Lipid panel reflex to direct LDL Fasting (01/09/2019 10:53 AM CDT) [facility] Method Time Signature Cholesterol 123 <200 mg/dL 01/09/2019 [place] 2:28 PM [facility] Triglycerides 82 <150 mg/dL 01/09/2019 [place] 2:28 PM [facility] HDL Cholesterol 49 (L) >49 mg/dL 01/09/2019 [place] 2:29 PM [facility] LDL Cholesterol 58 <100 mg/dL 01/09/2019 [place] Calculated 2:29 PM [facility] Comment: Desirable: <100 mg/dl Non HDL Cholesterol 74 <130 mg/dL 01/09/2019 2:29 PM [facility] Specimen Anatomical Collection Method Collection Time Receive d Time (Source) Location / / Volume Laterality Blood specimen 01/09/2019 10:53 9 (specimen) AM CDT 10:58 AM CDT Lucero Stevenson MD LAB - BLOOD ORDERABLES Performing Organization Address City/State/ZIP Code Phon e Number [facility] [address] [place] [phone] [facility] [address] [address], [facility] [phone] documented in this encounter Visit Diagnoses Diagnosis Encounter for Medicare annual wellness e xam - Primary Routine general medical examination at a health care facility Transient confusion Unspecified psychosis Microscopic hematuria Essential hypertension, benign Pressure ulcer of ischium, left, stage I V (H) Lymphedema of both lower extremities Morbid obesity (H) Morbid obesity CEFERINO (obstructive sleep apnea) Obstructive sleep apnea (adult) (pediatr ic) Pre-diabetes Other abnormal glucose Senile cataract, unspecified age-related cataract type, unspecified laterality Macular degeneration (senile) of retina Macular degeneration (senile) of retina, unspecified Lipid screening Screening for lipoid disorders 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 embolism Transient confusion Unspecified psychosis documented in this encounter Care Teams Social Media Marketing Manager Relationship Specialty Start Date End Date Lucero Stevenson PCP - General Pediatrics 10/11/11 04/22/19 MD Annetta Chastity Montero MD Dermatology 09/23/14 [address] [facility] 98 [place], [place] [address] Johnnie Alcocer MD Surgeon General Surgery 03/23/17 [address] [facility] 300 [place] [address] Lucero Stevenson Assigned PCP 06/17/18 11/09/19 MD DEMETRIO Littlejohn[address] [id number] Danni Marcus, CHANDLER Personal Advocate & 01/09/1901/17 Liaison (PAL) documented as of this encounter
--- OUTSIDE RECORDS SUMMARY | 2022-06-15 13:07 | XMS_ITS | Encounter Summary ---
:1945 Author Organization [place] Address [address] [place] [address] Care Team Providers Name Role Phone Lucero Stevenson MD Primary Care Provider [phone] Chastity Montero MD Unavailable [phone] Johnnie Alcocer MD Unavailable Lucero Stevenson MD Unavailable [phone] Reason for Visit Reason Onset Date Comments Orders 11/23/2018 Home care orders Encounter Details Date Type Department Care Team Description 11/23/2018 Telephone [facility] Lucero Stevenson rs (Home care Clinic Yarelis Littlejohn MD orders) [address] [facility] [address] [place] [address] [address] [place] [address] [place] [address] [phone] Social History Tobacco Use Types Packs/Day Years [...] slept in a group home (including now)? Sex Assigned at Date Recorded Female 12/24/2018 12:35 PM CDT documented as of this encounter Miscellaneous Notes Telephone Encounter - Jolanta Reddy RN - 11/23/2018 3:32 PM CDT Called Michelle with a verbal ok for the orders below. Telephone Encounter - Nicole Velazco - 11/23/2018 1:10 PM CDT Reason for call: Order Order or referral being requested: Home health care orders Reason for request: home health care Date needed: as soon as possible Has the patient been seen by the PCP for this problem? YES Additional comments: Michelle from [facility] called. Needs home care orders for nursing orders 7 X per week for 6 weeks, effective November 10, then 2X per week for one week. Also needs Home Health Aid for 2X per week for 6 weeks. Other phone number: [phone] Best Time: SEDRICK Can we leave a detailed message on this number? YES documented in this encounter Plan of Treatment Upcoming Encounters Date Type Specialty Care Team Description 11/15/2022 Virtual Visit Pharm D Haylie Cheung, [facility] [address] [facility] [place] [address] (Wo rk) 11/15/2022 Virtual Visit [place] [address] [place] [address] [place] [address] (Wo rk) 03/03/2023 Virtual Visit Neurology Erlinda Barber MD [address] [facility] 295 [place], [place] [address] (Wo rk) documented as of this encounter Visit Diagnoses Not on filedocumented in this encounter Care Teams Collateral Analyst Relationship Specialty Start Date End Date Lucero Stevenson MD PCP - General Pediatrics 10/11/11 04/22/19 Chastity Montero MD MD Dermatology 09/23/14 [address] [place] [address] [facility] 98 [place], [place] [address] Johnnie Alcocer MD Surgeon General Surgery 03/23/17 [address] [facility] [address] [place], [place] [id number] Lucero Stevenson MD Assigned PCP 06/17/18 11/09/19 [facility] [address] [place] [id number] documented as of this encounter
--- OUTSIDE RECORDS SUMMARY | 2022-06-15 13:07 | XMS_ITS | Encounter Summary ---
:1945 Author Organization [place] Address [address] [place] [address] Care Team Providers Name Role Phone Lucero Stevenson MD Primary Care Provider Chastity Montero MD Unavailable [phone] Johnnie Alcocer MD Unavailable Lucero Stevenson MD Unavailable [phone] Encounter Details Date Type Department Care Team Description 12/26/2018 Travel Social History Tobacco Use Types Packs/Day [...] or slept in a long-term (including now)? Sex Assigned at Date Recorded Female 12/24/2018 12:35 PM CDT documented as of this encounter Plan of Treatment Upcoming Encounters Date Type Specialty Care Team Description 11/15/2022 Virtual Visit Haylie Wakefield, [facility] [address] [facility] [place] [address] (Wo rk) 11/15/2022 Virtual Visit IM/Peds Yane Barraza MD [address] [facility] [address] [facility] [address] [place] [phone] (Wo rk) 03/03/2023 Virtual Visit Neurology Erlinda Barber MD [address] [facility] 295 [place], [place] [address] (Wo rk) documented as of this encounter Visit Diagnoses Not on filedocumented in this encounter Care Teams Lambskin Trimmer Relationship Specialty Start Date End Date Lucero Stevenson MD PCP - General Pediatrics 10/11/11 04/22/19 Chastity Montero MD MD Dermatology 09/23/14 420 [facility] 98 [place], [place] [address] Johnnie Alcocer MD Surgeon General Surgery 03/23/17 [address] [facility] 300 [place] [address] Lucero Stevenson MD Assigned PCP 06/17/18 11/09/[address] [address] documented as of this encounter
--- OUTSIDE RECORDS SUMMARY | 2022-06-15 13:07 | XMS_ITS | Encounter Summary ---
:1945 Author Organization [facility] Address [address] [place] [address] Care Team Providers Name Role Phone Lucero Stevenson MD Primary Care Provider [phone] Chastity Montero MD Unavailable [phone] Johnnie Alcocer MD Unavailable Lucero Stevenson MD Unavailable [phone] Danni Marcus RN Unavailable Unavailable Reason for Visit Reason Onset Date Comments Hospital F/U 01/08/2019 Failure To Thrive In Adult, [id number], 0 ED / 0 IP Encounter Details Date Type Department Care Team Description 01/09/2019 Telephone [facility]Failure Clinic Yarelis Littlejohn MD To Thrive In Adult, [address] [facility] Y [address], 0 ED / 0 IP) [facility] [address] [place] [address] [address] [place] [address] [place] [address] [phone] Social History Tobacco Use Types Packs/Day Years [...] 05/03/2021 organizations such as sikhism groups, unions, [employer]ut[employer] or athletic groups, or school groups? How [...] this encounter Miscellaneous Notes Telephone Encounter - Bri Romo RN - 01/09/2019 8:55 AM CDT Patient has appointment in 20 minutes to day with PCP. Next 5 appointments (look out 90 days) Jan 09, 2019 9:20 AM CDT Adult Preventative visit with Lucero Stevenson MD, Ea Rn Pal 5a, EA EXAM ROOM 50 [facility] ([facility] [address] [place] [address] [address] [facility] [address] Bri Cornelius RN Acute & Diagnostic Clinic - [facility] Telephone Encounter - Gisele Reed - 01/09/2019 8:31 AM CDT Please contact patient for In-patient follow up. [phone] (home) NONE (work) Visit date: [id number] Diagnosis listed: Failure To Thrive In Adult Number of visits in past 12 months: 0 ED / 0 IP documented in this encounter Plan of Treatment Upcoming Encounters Date Type Specialty Care Team Description 11/15/2022 Virtual Visit Pharm Haylie Gonzalez, [facility] [address] [place] [address] (Wo rk) 11/15/2022 Virtual Visit IM/Peds Yane Barraza MD [address] [facility] [facility] [place] [address] (Wo rk) 03/03/2023 Virtual Visit Neurology Erlinda Barber MD [address] [place] [address] [facility] 295 [place] [address] (Wo rk) documented as of this encounter Visit Diagnoses Not on filedocumented in this encounter Care Teams Electronic Wirer Relationship Specialty Start Date End Date Lucero Stevenson PCP - General Pediatrics 10/11/11 04/22/19 MD Annetta Chastity Montero MD Dermatology 09/23/14 [address] [place] [address] [facility] 98 [place] [address] Johnnie Alcocer MD Surgeon General Surgery 03/23/[address] [place], [place] [phone] Lucero Stevenson Assigned PCP 06/17/18 11/09/19 MD Annetta [facility] [address] [place], [place] [phone] Danni Marcus, CHANDLER Personal Advocate & 01/09/1901/17 Liaison (PAL) documented as of this encounter
--- OUTSIDE RECORDS SUMMARY | 2022-06-15 13:07 | XMS_ITS | Encounter Summary ---
:1945 Author Organization [place] Address [address] [place] [address] Care Team Providers Name Role Phone Lucero Stevenson MD Primary Care Provider [phone] Chastity Montero MD Unavailable [phone] Johnnie Alcocer MD Unavailable Lucero Stevenson MD Unavailable [phone] Reason for Visit Reason Onset Date Comments Home Care/Hospice 12/21/2018 Encounter Details Date Type Department Care Team Description 12/21/2018 Telephone [facility] Stefanie Stevenson ne Home Care/Hospice Yarelis Littlejohn MD 1071 [facility] [address] [place] [address] [address] [place] [address] [place] [address] [phone] Social History Tobacco Use Types Packs/Day Years [...] or slept in a half-way (including now)? Sex Assigned at Date Recorded Female 12/24/2018 12:35 PM CDT documented as of this encounter Miscellaneous Notes Telephone Encounter - Rosie Frazier, RN - 12/21/2018 5:40 PM CDT Michelle calling back I just spoke with someone from the clinic regarding orders and I forgot to add PT eval. Gave verbal ok per FNA protocol. Rosie Frazier RN [place] [facility] Telephone Encounter - Magda Tejeda - 12/21/2018 5:02 PM CDT Reason for Call: Home Health Care Michelle with [facility] called regarding (reason for call): Verbal orders Orders are needed for this patient. Skilled Nurse & HOme Health Aid PT: na OT: na Prison: e/o day effective 6/8 for 5 weeks; w/6 prn visits Home Health: effective 6/8 3x/wk for 5 wks Pt Provider: Graham Phone Number Homecare Nurse can be reached at: [phone] Can we leave a detailed message on this number? YES Phone number patient can be reached at: Home number on file [phone] (home) Best Time: any Call taken on 12/21/2018 at 5:03 PM by Magda Tejeda documented in this encounter Plan of Treatment Upcoming Encounters Date Type Specialty Care Team Description 11/15/2022 Virtual Visit Pharm Haylie Gonzalez, [facility] 14[address] [facility] [place] [address] (Wo rk) 11/15/2022 Virtual Visit IM/PedYane Muir MD [address] [facility] [place] [address] (Wo rk) 03/03/2023 Virtual Visit Neurology Erlinda Barber MD 420 [facility] 295 [place] [address] (Wo rk) documented as of this encounter Visit Diagnoses Not on filedocumented in this encounter Care Teams Handle Sander Operator Relationship Specialty Start Date End Date Lucero Stevenson MD PCP - General Pediatrics 10/11/11 04/22/19 Chastity Montero MD MD Dermatology 09/23/14 420 [facility] 98 [place], [place] [phone] Johnnie Alcocer MD Surgeon General Surgery 03/23/17 [address] [facility] 300 [place], [place] [address] Lucero Stevenson MD Assigned PCP 06/17/18 11/09/19 [facility] [place] [address] [place] [id number] documented as of this encounter
--- OUTSIDE RECORDS SUMMARY | 2022-06-15 13:07 | XMS_ITS | Encounter Summary ---
:1945 Author Organization [facility] Address [address] [place] [address] Care Team Providers Name Role Phone Lucero Stevenson MD Primary Care Provider [phone] Chastity Montero MD Unavailable [phone] Johnnie Alcocer MD Unavailable Lucero Stevenson MD Unavailable [phone] Reason for Visit Reason Comments Medication Refill nystatin (MYCOSTATIN) [id number] UNIT/GM external ointment Encounter Details Date Type Department Care Team Description 12/05/2018 Refill [facility] Lucero Stevenson [facility] Refill Clinic Yarelis Littlejohn MD (nystatin (MYCOSTATIN) 3305 [facility] Y 814[address] UNIT/GM external [facility] [address] [facility] [address] ointment) [address] [place] [address] [place] [address] [phone] Social History Tobacco Use Types Packs/Day Years [...] or slept in a prison (including now)? Sex Assigned at Date Recorded Female 12/24/2018 12:35 PM CDT documented as of this encounter Miscellaneous Notes Telephone Encounter - Patience Woods - 12/06/2018 8:08 AM CDT Requested Prescriptions Pending Prescriptions Disp Refills ??? nystatin (NYSTOP) [id number] UNIT/GM external powder [Pharmacy Med Name: NYSTOP 100,000 U/GM TOP POWDER 60GM] Last Written Prescription Date: 08/03/2018 Last Fill Quantity: 30 g, # refills: 1 Last office visit: 05/30/18 Future Office Visit: Next 5 appointments (look out 90 days) Dec 26, 2018 9:40 AM CDT PHYSICAL with [facility]ero [facility] [address] [place] [address] [address] [facility] [address] 60 g 0 Sig: APPLY TOPICALLY TO THE AFFECTED AREA BENEATH BILATERAL BREAST/GROIN FOLDS TWICE DAILY UNTIL RESOLVED. Antifungal Agents Passed - 12/05/2018 7:49 PM Passed - Recent (12 mo) or future [...] - Medication is active on med list Prescription approved per [facility] Refill Protocol. Elizabeth Vasquez, RN documented in this encounter Plan of Treatment Upcoming Encounters Date Type Specialty Care Team Description 11/15/2022 Virtual Visit Pharm Haylie Gonzalez, [facility] [address] [place] [address] (Wo rk) 11/15/2022 Virtual Visit IM/Yane Mathias MD [address] [facility] [place] [address] (Wo rk) 03/03/2023 Virtual Visit Neurology Erlinda Barber MD 420 [facility] 295 [place] [address] (Wo rk) documented as of this encounter Visit Diagnoses Diagnosis Pressure ulcer of ischium, left, stage I V (H) documented in this encounter Care Teams Mechanic Senior Relationship Specialty Start Date End Date Lucero Stevenson MD PCP - General Pediatrics 10/11/11 04/22/19 Chastity Montero MD MD Dermatology 09/23/14 420 [facility] 98 [place], [place] [address] Johnnie Alcocer MD Surgeon General Surgery 03/23/17 [address] [facility] 300 [place], [place] [phone] Lucero Stevenson MD Assigned PCP 06/17/18 11/09/[address] [address] documented as of this encounter
--- OUTSIDE RECORDS SUMMARY | 2022-06-15 13:07 | XMS_ITS | Encounter Summary ---
:1945 Author Organization [place] Address [address] [place] [address] Care Team Providers Name Role Phone Lucero Stevenson MD Primary Care Provider Chastity Montero MD Unavailable [phone] Johnnie Alcocer MD Unavailable Lucero Stevenson MD Unavailable [phone] Reason for Referral Vision Services (Routine) - Closed Specialty Diagnoses / Procedures Referred By Contact Refer red To Contact Diagnoses Cortical age-related cataract, both eyes Nuclear sclerosis of both eyes Hayley German [facility] Yan [facility] [address] [place] [address] [place] [address] [place] [address] Referral ID Status Reason Start Date Expiration Date Visits Requ ested Visits Authorized [id number] Closed 12/18/2018 12/18/2019 1 1 Reason for Visit Reason Onset Date Comments Pt. Information/instruction 12/18/2018 Encounter Details Date Type Department Care Team Description 12/18/2018 Telephone [facility] Hayley Wells Pt. Clinic Yarelis Yan OD Information/instructio [address] [place] [address] [facility] [address] [place] [address] [place] [phone] [phone] Social History Tobacco Use Types Packs/Day Years [...] or slept in a alf (including now)? Sex Assigned at Date Recorded Female 12/24/2018 12:35 PM CDT documented as of this encounter Miscellaneous Notes Telephone Encounter - Hayley German, KENNETH - 12/18/2018 10:07 AM CDT Sent chart notes and CE consult request to [facility]. Patient will call for appointment. Hayley German OD Telephone Encounter - Svetlana Chapa - 12/18/2018 9:58 AM CDT Patient scheduled appointment with Dr. German for vision recheck since she recently failed her DMV eye exam. Patient was seen by Dr. German 3 months ago and was told at that time that she needed to have cataract surgery, and that updating glasses would not be much help. After speaking with Charlette, she did notremember Dr. German saying that, and stated she would be open to having a cataract consult. Dr. German is going to refer patient to [facility] in [place]. NS called patient back and spoke with her to give her this information. documented in this encounter Plan of Treatment Upcoming Encounters Date Type Specialty Care Team Description 11/15/2022 Virtual Visit Pharm D Haylie Cheung, [facility] [address] [employer] [place] [address] (Wo rk) 11/15/2022 Virtual Visit IM/Peds Yane Barraza MD [address] [facility] [place] [address] (Wo rk) 03/03/2023 Virtual Visit Neurology Erlinda Barber MD 420 [facility] 295 [place] [address] (Wo rk) Scheduled Referrals Name Type Priority Associated Diagnoses Order S chedule OPHTHALMOLOGY ADULT Referral Routine Cortical age-related Ordered: 12/18/2018 REFERRAL cataract, both e yes Nuclear sclerosis of both eyes documented as of this encounter Visit Diagnoses Diagnosis Cortical age-related cataract, both eyes - Primary Nuclear sclerosis of both eyes documented in this encounter Care Teams Balance Staff Inspector Relationship Specialty Start Date End Date Lucero Stevenson MD PCP - General Pediatrics 10/11/11 04/22/19 Chastity Montero MD MD Dermatology 09/23/14 420 [facility] 98 [place], [place] [address] Johnnie Alcocer MD Surgeon General Surgery 03/23/[address] [place], [place] [address] Lucero Stevenson MD Assigned PCP 06/17/18 11/09/[address] [phone] documented as of this encounter
--- OUTSIDE RECORDS SUMMARY | 2022-06-15 13:07 | XMS_ITS | Encounter Summary ---
:1945 Author Organization [place] Address [address] [place] [address] Care Team Providers Name Role Phone Lucero Stevenson MD Primary Care Provider Chastity Montero MD Unavailable [phone] Johnnie Alcocer MD Unavailable Lucero Stevenson MD Unavailable [phone] Danni Marcus RN Unavailable Unavailable Encounter Details Date Type Department Care Team Description 01/09/2019 Travel Social History Tobacco Use Types Packs/Day [...] Pharm Haylie Gonzalez, [facility] [address] [place] [address] (Wo rk) 11/15/2022 Virtual Visit IM/Peds Yane Barraza MD [address] [facility] [address] [place] [id number] (Wo rk) 03/03/2023 Virtual Visit Neurology Erlinda Barber MD [address] [facility] [address] [place], [place] [id number] (Wo rk) documented as of this encounter Visit Diagnoses Not on filedocumented in this encounter Care Teams Warehouse Record Clerk Relationship Specialty Start Date End Date Lucero Stevenson PCP - General Pediatrics 10/11/11 04/22/19 MD Annetta Chastity Montero MD Dermatology 09/23/14 [address] [facility] [address] [place], [place] [phone] Johnnie Alcocer MD Surgeon General Surgery 03/23/[address] [place], [place] [address] Lucero Stevenson Assigned PCP 06/17/18 11/09/19 MD TOÑO [facility] [address] [place], [place] [id number] Danni Marcus, CHANDLER Personal Advocate & 01/09/1901/17 Liaison (PAL) documented as of this encounter
--- OUTSIDE RECORDS SUMMARY | 2022-06-15 13:07 | XMS_ITS | Encounter Summary ---
:1945 Author Organization [place] Address [address] [place] [address] Care Team Providers Name Role Phone Lucero Stevenson MD Primary Care Provider [phone] Chastity Montero MD Unavailable [phone] Johnnie Alcocer MD Unavailable Lucero Stevenson MD Unavailable [phone] Reason for Visit Reason Onset Date Comments SB override 12/10/2018 SB 5 Encounter Details Date Type Department Care Team Description 12/10/2018 Documentation Only [facility] JOLENE Stevenson (SB 5 ) Clinic Yarelis Littlejohn, [facility] [place] [facility] [address] [place] [place] [address] [place], [place] [phone] [id number] Social History Tobacco Use Types Packs/Day Years [...] or slept in a detention (including now)? Sex Assigned at Date Recorded Female 12/24/2018 12:35 PM CDT documented as of this encounter Plan of Treatment Upcoming Encounters Date Type Specialty Care Team Description 11/15/2022 Virtual Visit Pharm Haylie Gonzalez, [facility] [address] [place] [address] (Wo rk) 11/15/2022 Virtual Visit IM/Peds Yane Barraza MD [address] [facility] [address] (Wo rk) 03/03/2023 Virtual Visit Neurology Erlinda Barber MD [address] [facility] [address] [place], [place] [phone] (Wo rk) documented as of this encounter Visit Diagnoses Not on filedocumented in this encounter Care Teams Chemical Machine Tender Relationship Specialty Start Date End Date Lucero Stevenson MD PCP - General Pediatrics 10/11/11 04/22/19 Chastity Montero MD MD Dermatology 09/23/14 [address] [facility] [address] [place], [place] [address] Johnnie Alcocer MD Surgeon General Surgery 03/23/[address] [place], [place] [address] Lucero Stevenson MD Assigned PCP 06/17/18 11/09/19 [facility] [address] [place], [place] [phone] documented as of this encounter
--- OUTSIDE RECORDS SUMMARY | 2022-06-15 13:07 | XMS_ITS | Encounter Summary ---
:1945 Author Organization [place] Address [address] [place] [address] Care Team Providers Name Role Phone Lucero Stevenson MD Primary Care Provider [phone] Chastity Montero MD Unavailable [phone] Johnnie Alcocer MD Unavailable Lucero Stevenson MD Unavailable [phone] Encounter Details Date Type Department Care Team Description 12/10/2018 Telephone [facility] Stefanie Stevenson Eagan MD [address] [place] [address] [address] [place] [address] [place] [address] [phone] Social History Tobacco Use Types Packs/Day Years [...] or slept in a 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 (including now)? Sex Assigned at Date Recorded Female 12/24/2018 12:35 PM CDT documented as of this encounter Miscellaneous Notes Telephone Encounter - Gisele Reed - 12/11/2018 4:31 PM CDT Called spoke to patient moved just provider appointment to 01/09/19 Thanks Luis E Carreon Team Coodinator Telephone Encounter - Lucero Stevenson MD - 12/10/2018 6:04 PM CDT Please call patient to schedule her as a new sb 5 patient in December. She may already have an appt we need to move. Clinic pal only Lucero Stevenson MD documented in this encounter Plan of Treatment Upcoming Encounters Date Type Specialty Care Team Description 11/15/2022 Virtual Visit Pharm D Haylie Cheung, [facility] [address] [place] [phone] (Wo rk) 11/15/2022 Virtual Visit IM/Peds Yane Barraza MD [address] [facility] [place] [phone] (Wo rk) 03/03/2023 Virtual Visit Neurology Erlinda Barber MD [address] [facility] 295 [place] [address] (Wo rk) documented as of this encounter Visit Diagnoses Not on filedocumented in this encounter Care Teams Diet Counselor Relationship Specialty Start Date End Date Lucero Stevenson MD PCP - General Pediatrics 10/11/11 04/22/19 Chastity Montero MD MD Dermatology 09/23/14 [address] [facility] 98 [place] [address] Johnnie Alcocer MD Surgeon General Surgery 03/23/17 [address] [facility] 300 [place], [place] [address] Lucero Stevenson MD Assigned PCP 06/17/18 11/09/[address] [phone] documented as of this encounter
--- OUTSIDE RECORDS SUMMARY | 2022-06-15 13:07 | XMS_ITS | Encounter Summary ---
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 [address] [place] [address] Social [...] encounter Progress Notes Qing Guy RN - 01/10/2019 11:15 AM CDT ANTICOAGULATION FOLLOW-UP Patient Name: Charlette Brush Date: 01/10/2019 Contact Type: Telephone Call received from [facility] nurse, with INR result. Follow up instructions given over the phone to Home Care nurse for warfarin management. SUBJECTIVE: Patient Findings Comments: Per Homecare nurse: No extra dose No bleeding or concerning bruises No illness or infection No rash, arthritis flare or gout No diarrhea No medication changes No change in diet or eating habits She was at the ER on Sunday 01/07 for confusion. No infectious process found. INRs were therapeutic. Seen yesterday by PCP. No infection. Clinical Outcomes Comments: Per Homecare nurse: No extra dose No bleeding or concerning bruises No illness or infection No rash, arthritis flare or gout No diarrhea No medication changes No change in diet or eating habits She was at the ER on Sunday 01/07 for confusion. No infectious process found. INRs were therapeutic. Seen yesterday by PCP. No infection. OBJECTIVE INR Date Value Ref Range Status 01/10/2019 3.8 (A) 0.9 - 1.1 Final ASSESSMENT / PLAN No question data found. Anticoagulation Summary As of 01/10/2019 INR goal: 2.0-3.0 TTR: 80.2 % (3.3 y) INR used for dosin.8! 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 Patient will hold dose today, take 10 mg tomorrow which will decrease weekly total by 17%, then resume maintenance dose. Will follow up in 2 weeks or sooner if needed. Dosage adjustment made based on physician directed care plan. Qing Guy RN documented in this encounter Plan of Treatment Upcoming Encounters Date Type Specialty Care Team Description 11/15/2022 Virtual Visit Pharm D Haylie Cheung, [facility] [address] [facility] [place] [address] (Lena max) 11/15/2022 Virtual [place] [address] [place] [address] [place] [phone] (Lena max) 03/03/2023 Virtual Visit Neurology Erlinda Barber MD [address] [facility] 295 [place] [address] (Wo winter) documented as of this encounter Procedures Procedure Name Priority Date/Time Associated Diagnosis Comme nts INR Routine 01/10/2019 1:57 PM Results f or this CDT procedure are i n the results section . 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 current use of anticoagulant t herapy documented in this encounter Care Teams Tailor Women'S Garment Alteration Relationship Specialty Start Date End Date Lucero Stevenson PCP - General Pediatrics 10/11/11 04/22/19 MD Annetta Chastity Montero MD Dermatology 09/23/[address] [place] [address] 98 [place], [place] [address] Johnnie Alcocer MD Surgeon General Surgery 03/23/17 [address] [facility] 300 [place] [address] Lucero Stevenson Assigned PCP 06/17/18 11/09/19 MD TOÑO Littlejohn [address] [address] Danni Marcus, CHANDLER Personal Advocate & 01/09/1901/17 Liaison (PAL) documented as of this encounter
--- OUTSIDE RECORDS SUMMARY | 2022-06-15 13:07 | XMS_ITS | Encounter Summary ---
:1945 Author Organization [place] Address [address] [place] [address] Care Team Providers Name Role Phone Lucero Stevenson MD Primary Care Provider Chastity Montero MD Unavailable [phone] Johnnie Alcocer MD Unavailable Lucero Stevenson MD Unavailable [phone] Encounter Details Date Type Department Care Team Description 12/27/2018 Anticoagulation Therapy [facility] current use of 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 (Primary Dx); Visit Clinic [facility] Personal history of pulmonar y embolism [address] [facility] [address] [place] [address] [...] slept in a senior living (including now)? Sex Assigned at Date Recorded Female 12/24/2018 12:35 PM CDT documented as of this encounter Progress Notes Qing Guy RN - 12/27/2018 9:45 AM CDT ANTICOAGULATION FOLLOW-UP Patient Name: Charlette Brush Date: 12/27/2018 Contact Type: Telephone Patient had INR done with other labs at lab yesterday. No INR Clinic at on Mon. Patient called today. Warfarin dose and recheck instructions given to patient over the phone. She verbalized understanding. Called and left a message for Kana, [facility] nurse. She had been out to see Charlette this morning, but didn't so INR because it was done yesterday and was therapeutic. INR result and follow up instructions left on confidential voicemail for warfarin management. SUBJECTIVE: Patient Findings Comments: The patient was assessed for diet, medication, missed or extra doses, bruising or bleeding, with no problem findings. Clinical Outcomes Comments: The patient was assessed for diet, medication, missed or extra doses, bruising or bleeding, with no problem findings. OBJECTIVE INR Date Value Ref Range Status 12/26/2018 2.70 (H) 0.86 - 1.14 Final Comment: This test is intended for monitoring Coumadin therapy. Results are not accurate in patients with prolonged INR due to factor deficiency. ASSESSMENT / PLAN INR assessment THER Recheck INR In: 2 WEEKS INR Location Clinic EA lab Anticoagulation Summary As of 12/27/2018 INR goal: 2.0-3.0 TTR: 80.1 % (3.2 y) INR used for dosin.70 (12/26/2018) Warfarin maintenance plan: 13 mg (3 mg x 1 and 10 mg x 1) every Mon, Fri; 10 mg (10 mg x 1) all other days Full warfarin instructions: 13 mg every Mon, Fri; 10 mg all other days Weekly warfarin total: 76 mg No change documented: Qing Guy, CHANDLER Plan last modified: Qing Guy, RN (10/11/2018) Next INR check: 01/10/2019 Target end date: Indefinite Indications 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 embolism [Z86.711] [facility] current use of 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 [Z79.01] Anticoagulation Episode Summary INR check location: Anticoagulation Clinic Preferred lab: Send INR reminders to: [facility] Comments: 7.5mg, 3mg, 6mg & 10mg tabs - devaughn dose / [facility] FAHEEM Martinez [phone] / APPT CARD ONLY Anticoagulation Care Providers Provider Role Specialty Phone number Lucero Stevenson MD Internal Medicine [phone] See the Encounter Report to view Anticoagulation Flowsheet and Dosing Calendar (Go to Encounters tabin chart review, and find the Anticoagulation Therapy Visit) INR is therapeutic today. Patient will continue same maintenance dose. Follow up in 2 weeks or sooner if needed. 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
--- OUTSIDE RECORDS SUMMARY | 2022-06-15 13:07 | XMS_ITS | Encounter Summary ---
:1945 Author Organization [place] Address [address] [place] [address] Care Team Providers Name Role Phone Lucero Stevenson MD Primary Care Provider [phone] Chastity Montero MD Unavailable [phone] Johnnie Alcocer MD Unavailable Lucero Stevenson MD Unavailable [phone] Encounter Details Date Type Department Care Team Description 12/26/2018 Orders Only [facility] Pul monary embolism and infarction (H); [facility] long term care administrator current use of ant icoagulant therapy [address] [facility] [address] [place] [address] Social History Tobacco Use Types [...] Gonzalez, [facility] [address] [facility] [place] [phone] (Wo rk) 11/15/2022 Virtual Visit IM/Peds Yane Barraza MD [address] [facility] [address] [facility] [place] [phone] (Wo rk) 03/03/2023 Virtual Visit Neurology Erlinda Barber MD [address] [facility] 295 [place] [address] (Wo rk) documented as of this encounter Procedures Procedure Name Priority Date/Time Associated Diagnosis Comme nts INR Routine 12/26/2018 9:35 AM Pulmonary embolism and Results for this CDT infarction (H) procedure are in long term care administrator current use the re sults of anticoagulant section. therapy documented in this encounter Results (ABNORMAL) INR (12/26/2018 9:35 AM CDT) P athologist Signature INR 2.70 (H) 0.86 - 1.14 12/26/2018 [place] 9:41 AM CDT [facility] YAREL[facility] Comment: This test is intended for monitoring Cou madin therapy. ??Results are not accurate in patients with prolonged INR due to factor deficiency. Specimen Anatomical Collection Method Collection Time Receive d Time (Source) Location / / Volume Laterality Blood specimen 12/26/2018 9:35 AM 019 9:37 (specimen) CDT AM CDT Lucero Stevenson MD LAB - BLOOD ORDERABLES Performing Organization Address City/State/ZIP Code Phon e Number [facility] [address] [place] [address] [place] [phone] documented in this encounter Visit Diagnoses Diagnosis Pulmonary embolism and infarction (H) long term care administrator current use of anticoagulant t herapy documented in this encounter Care Teams Manager Product Management Relationship Specialty Start Date End Date Lucero Stevenson MD PCP - General Pediatrics 10/11/11 04/22/19 Chastity Montero MD MD Dermatology 09/23/14 [address] [facility] 98 [place], [place] [address] Johnnie Alcocer MD Surgeon General Surgery 03/23/17 [address] [facility] [address] [place] [address] Lucero Stevenson MD Assigned PCP 06/17/18 11/09/19 TOÑO [facility] [address] [place] [address] documented as of this encounter
--- OUTSIDE RECORDS SUMMARY | 2022-06-15 13:07 | XMS_ITS | Encounter Summary ---
:1945 Author Organization [place] Address [address] [place] [address] Care Team Providers Name Role Phone Lucero Stevenson MD Primary Care Provider [phone] Chastity Montero MD Unavailable [phone] Johnnie Alcocer MD Unavailable Lucero Stevenson MD Unavailable [phone] Reason for Referral Specialty Diagnoses / Procedures Referred By Contact Refer red To Contact Lucero Stevenson MD [address] [address] Referral ID Status Reason Start Date Expiration Date Visits Requ ested Visits Authorized Scheduling Instructions ANTICOAGULATION CLINIC COLLABORATIVE GA ACTICE AGREEMENT The following represents a collaborative practice agreement among the physicians of the Clinic and staff of the Anticoagulat ion Clinic Service ([facility]) Physicians shall: 1. Refer patients requiring anticoagulat ion to a specialty service staffed by personnel of Pharmacy Services and super vised by Clinic physicians. 2. Respond to questions and referrals fr om pharmacy staff regarding delinquent or difficult patients. 3. Inform the [facility] staff when a new patie nt is [...] sergio cated. Reason for Visit Reason Comments Orders Encounter Details Date Type Department Care Team Description 12/26/2018 Documentation Only [facility] Lavern Stevenson Orders Clinic Yarelis Littlejohn MD [address] [facility] [address] [place] [address] [address] [place] [address] [place] [address] [phone] Social History Tobacco Use Types Packs/Day Years [...] documented as of this encounter Progress Notes Nely Flores - 12/26/2018 9:35 AM CDT Charlette was here today for a lab only appt for lab work before her physical and we only has a order for INR, we did draw other tubes. Please place any orders needed.. Thanks Lab documented in this encounter Miscellaneous Notes Addendum Note - John Jay - 12/26/2018 9:35 AM CDT Addended by: JOHN JAY on: 12/26/2018 12:21 PM Modules accepted: Orders documented in this encounter Plan of Treatment Upcoming Encounters Date Type Specialty Care Team Description 11/15/2022 Virtual Visit Pharm D Haylie Cheung, [facility] [address] [facility] [place] [address] (Wo winter) 11/15/2022 Virtual Visit IM/Peds Yane Barraza MD [address] [facility] [place] [address] (Wo rk) 03/03/2023 Virtual Visit Neurology Erlinda Barber MD [address] [facility] [address] [place], [place] [address] (Wo rk) Scheduled Referrals Name Type Priority Associated Diagnoses Order S chedule INR CLINIC REFERRAL Referral Routine 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 BASIC METABOLIC Routine 12/26/2018 10:26 AM Essential Resul ts for this PANEL CDT hypertension, benign procedu re are in the results section. CBC WITH PLATELETS Routine 12/26/2018 10:26 AM Pressure ulcer of Results for this CDT ischium, left, stage procedu re are in IV (H) the results section. documented in this encounter Results Albumin Random Urine Quantitative with Creat Ratio (02/07/2019 12:10 PM CDT) [facility] [employer] Method Time Signature Creatinine 15 mg/dL 02/08/2019 [place] Urine 11:58 AM T [facility] Albumin Urine <5 mg/L 02/08/2019 [place] mg/L 11:58 AM T [facility] Albumin Urine Unable to 0 - 25 02/08/2019 [place] mg/g Cr calculate due mg/g Cr 11:58 AM T [facility] Specimen Anatomical Collection Method Collection Time Receive d Time (Source) Location / / Volume Laterality Urine specimen 02/07/2019 12:10 9 (specimen) PM CDT 12:16 PM CDT Lucero Stevenson MD LAB - URINE ORDERABLES Performing Organization Address City/State/ZIP Code Phon e Number [facility] [address] [address] [facility] [address] [address], U [phone] (ABNORMAL) Basic metabolic panel (12/26/2018 10:26 AM CDT) [facility] Method Time Signature Sodium 140 133 - 144 12/26/2018 [place] mmol/L 1:51 PM CDT [facility] Potassium 4.2 3.4 - 5.3 12/26/2018 [place] mmol/L 1:51 PM CDT [facility] Chloride 107 94 - 109 12/26/2018 [place] mmol/L 1:51 PM CDT [facility] Carbon Dioxide 26 20 - 32 12/26/2018 [place] mmol/L 2:14 PM CDT [facility] Anion Gap 7 3 - 14 12/26/2018 [place] mmol/L 2:14 PM CDT [facility] Glucose 94 70 - 99 12/26/2018 [place] mg/dL 2:14 PM CDT [facility] Urea Nitrogen 19 7 - 30 12/26/2018 [place] mg/dL 2:14 PM CDT [facility] Creatinine 0.50 (L) 0.52 - 12/26/2018 [place] 1.04 2:14 PM CDT [facility] mg/dL [facility] GFR Estimate >90 >60 12/26/2018 [place] mL/min/{1 2:14 PM CDT CLINICS .73_m2} [facility] Comment: Non GFR Calc Starting 07/03/2018, serum creatinine ba sed estimated GFR (eGFR) will be calculated using the Chronic Kidney Dise [facility] Epidemiology Collaboration (CKD-EPI) equation. GFR Estimate If >90 >60 mL/min/{1.73_m2} 12/26/2018 2: 14 PM [facility] Black T [facility] Comment: GFR Calc Starting 07/03/2018, serum creatinine ba sed estimated GFR (eGFR) will be calculated using the Chronic Kidney Dise [facility] Epidemiology Collaboration (CKD-EPI) equation. Calcium 8.9 8.5 - 10.1 mg/dL 12/26/2018 2:14 PM CDT [facility] Specimen Anatomical Collection Method Collection Time Receive d Time (Source) Location / / Volume Laterality Blood specimen 12/26/2018 10:26 9 (specimen) AM CDT 10:31 AM CDT Lucero Stevenson MD LAB - BLOOD ORDERABLES Performing Organization Address City/State/ZIP Code Phon e Number [facility] [address] [place] [address] CBC with platelets (12/26/2018 10:26 AM CDT) P athologist Signature WBC 5.8 4.0 - 11.0 12/26/2018 [place] 10e9/L 10:55 AM CDT [facility] [place] RBC Count 4.74 3.8 - 5.2 12/26/2018 [place] 10e12/L 10:55 AM CDT [facility] [place] Hemoglobin 14.5 11.7 - 12/26/2018 [facility] 15.7 g/dL 10:55 AM CDT [facility] [place] Hematocrit 43.0 35.0 - 12/26/2018 [place] 47.0 % 10:55 AM CDT [facility] [place] MCV 91 78 - 100 12/26/2018 [place] fl 10:55 AM CDT [facility] [place] MCH 30.6 26.5 - 12/26/2018 [facility] 33.0 pg 10:55 AM CDT [facility] [place] MCHC 33.7 31.5 - 12/26/2018 [place] 36.5 g/dL 10:55 AM CDT [facility] [place] RDW 14.6 10.0 - 12/26/2018 [place] 15.0 % 10:55 AM CDT [facility] [place] Platelet Count 285 150 - 450 12/26/2018 [place] 10e9/L 10:55 AM CDT [facility] [place] Specimen Anatomical Collection Method Collection Time Receive d Time (Source) Location / / Volume Laterality Blood specimen 12/26/2018 10:26 9 (specimen) AM CDT 10:31 AM CDT Lucero Stevenson MD LAB - BLOOD ORDERABLES Performing Organization Address City/State/ZIP Code Phon e Number [facility] [address] [place] [address] [phone] Ferritin (12/26/2018 10:26 AM CDT) P athologist Signature Ferritin 56 8 - 252 12/26/2018 [facility] ng/mL 2:12 PM CDT [facility] Specimen Anatomical Collection Method Collection Time Receive d Time (Source) Location / / Volume Laterality Blood specimen 12/26/2018 10:26 9 (specimen) AM CDT 10:31 AM CDT Lucero Stevenson MD LAB - BLOOD ORDERABLES Performing Organization Address City/State/ZIP Code Phon e Number [facility] [address] [place] [address] documented in this encounter Visit Diagnoses Diagnosis Essential hypertension, benign - Primary Pressure ulcer of ischium, left, stage I V (H) Pre-diabetes Other abnormal glucose prison current use of anticoagulant t herapy Iron deficiency Other disorders of iron metabolism documented in this encounter Care Teams Trick Rodeo Rider Relationship Specialty Start Date End Date Lucero Stevenson MD PCP - General Pediatrics 10/11/11 04/22/19 Chastity Montero MD MD Dermatology 09/23/14 [address] [facility] [address] [place] [address] Johnnie Alcocer MD Surgeon General Surgery 03/23/17 [address] [facility] [address] [place], [place] [phone] Lucero Stevenson MD Assigned PCP 06/17/18 11/09/19 [facility] [address] [place], [place] [phone] documented as of this encounter
--- OUTSIDE RECORDS SUMMARY | 2022-06-15 13:07 | XMS_ITS | Encounter Summary ---
:1945 Author Organization [place] Address [address] [place] [address] Care Team Providers Name Role Phone Lucero Stevenson MD Primary Care Provider [phone] Chastity Montero MD Unavailable [phone] Johnnie Alcocer MD Unavailable Lucero Stevenson MD Unavailable [phone] Encounter Details Date Type Department Care Team Description 01/07/2019 Travel Social History Tobacco Use Types Packs/Day [...] [facility] [address] [facility] [place] [address] (Wo rk) 11/15/2022 Virtual Visit IM/Peds Yane Barraza MD [address] [facility] [facility] [place] [address] (Wo rk) 03/03/2023 Virtual Visit Neurology Erlinda Barber MD [address] [address] [facility] [address] [place] [address] (Wo rk) documented as of this encounter Visit Diagnoses Not on filedocumented in this encounter Care Teams Granite Setter Relationship Specialty Start Date End Date Lucero Stevenson MD PCP - General Pediatrics 10/11/11 04/22/19 Chastity Montero MD MD Dermatology 09/23/14 [address] [facility] [address] [place] [address] Johnnie Alcocer MD Surgeon General Surgery 03/23/17 [address] [facility] [address] [place], [place] [address] Lucero Stevenson MD Assigned PCP 06/17/18 11/09/19 [facility] [address] [place], [place] [phone] documented as of this encounter
--- OUTSIDE RECORDS SUMMARY | 2022-06-15 13:08 | XMS_ITS | Encounter Summary ---
:1945 Author Organization [place] Address [address] [facility] [place] [address] Care Team Providers Name Role Phone Lucero Stevenson MD Primary Care Provider Chastity Montero MD Unavailable [phone] Johnnie Alcocer MD Unavailable Lucero Stevenson MD Unavailable [phone] Lucero Stevenson MD Unavailable [phone] Reason for Visit Reason Comments WOUND CARE CLINIC Encounter Details Date Type Department Care Team Description 08/23/2018 Hospital Encounter [facility] Deonte Barry essure ulcer of Wound Clinic Oumou Guillen MD ischium, left, stage [address] IV (H) [address] [facility] [address] [place] [address] [phone] Social History Tobacco Use Types Packs/Day Years [...] or slept in a custodial (including now)? Sex Assigned at Date Recorded Female 12/24/2018 12:35 PM CDT documented as of this encounter Last Filed Vital Signs Vital Sign Reading Time Taken Comments Blood Pressure 153/87 08/23/2018 12:49 PM HEAD [employer] WA[employer]RESS Pulse 93 08/23/2018 12:49 PM [facility] [employer] Temperature 36.2 ??C (97.1 ??F) 08/23/2018 12:49 PM HEAD [employer] WA[employer]RESS Respiratory Rate 18 08/23/2018 12:49 PM HEAD [employer] Oxygen Saturation - - Inhaled Oxygen Concentration - - Weight - - Height - - Body Mass Index - - documented in this encounter Discharge Instructions Discharge InstructionsYanet Mosqueda RN - 08/23/2018 1:24 PM HEAD [employer]QU[employer] WA[employer]R[facility] [address] [address] Appointment Nurse Advisors [phone] Marzena Brush 1945 Interim Home Care Wound Dressing Change:Left Ischial Tuberosity After cleansing with saline or wound cleanser, apply small amount of VASHE on gauze, lay into wound bed, let sit for 10 minutes, remove gauze (do not rinse) then apply dressing. Skin Care: Apply moisturizing cream to skin surrounding the wound (but not in the wound):Criticaid Cover wound with Hydrofera Blue Transfer cut to fit the size of the wound Cover wound with abd pad Change dressing daily Repositioning: Bed: Reposition pt MINIMALLY every 1-2 hours in bed to relieve pressure and promote perfusion to tissue. Chair: When up to chair pt should not sit for longer than one hour total before either standing or returning to bed for at least 10 minutes, again to relieve pressure and promote perfusion to tissue. Pt should also sit on a chair cushion when up to the chair. A flap procedure would not work on the wound to heal it due to wound location crevices and the location high moisture content It might be a good idea to go into a Snf Facility for a short term to receive a higher level of care where they can change your dressings multiple times a day. Dr. Deonte Barry, August 23, 2018 Call us at [phone] if you have any questions about your wounds, have redness or swelling aroundyour wound, have a fever of 101 or greater or if you have any other problems or concerns. We answer the phone Monday through Monday 8 am to 4 pm, please leave a message as we check the voicemail frequently throughout the day. Follow up with Juanita in 2-3 weeks BANQUET WAITRESS documented in this encounter Medications at Time of Discharge Medication Sig Dispensed Refills Start Date End Date cetirizine (ZYRTEC) 10 Take 10 mg by mouth 0 MG tablet 2 times daily acetaminophen (TYLENOL) Take 325 mg by mouth [...] (with breakfast) unspecified iron deficiency anemia type fluconazole (DIFLUCAN) Take 1 tablet (150 3 tablet 0 08/0610/11/2018 150 MG mg) by mouth daily tabletIndications: Yeast for 3 doses infection of the skin furosemide (LASIX) 40 MG Take 0.5 tablets (20 90 tablet 3 0 08/01/2018 01/07/2019 tabletIndications: mg) by mouth daily Essential hypertension, benign hydrocortisone 2.5 % Daily as needed 180 g 3 03/27/2017 05/14/2019 ointmentIndications: Dermatitis losartan (COZAAR) 50 MG Take 1 tablet (50 90 tablet 3 05/3002/19/2019 tabletIndications: mg) by mouth daily Essential hypertension, benign nystatin (MYCOSTATIN) Apply topically 0 8 09/11/2019 181067 UNIT/GM external daily as needed cream nystatin (MYCOSTATIN) Apply topically 2 30 g 1 019 01/07/2019 238319 UNIT/GM external times daily ointmentIndications: Yeast infection of the skin NYSTOP 154941 UNIT/GM JOI TOPICALLY AA 60 g 11 05/30/20 18 12/05/2018 POWD powderIndications: BENEATH BILATERAL Pressure ulcer of BREAST/GROIN FOLDS ischium, left, stage IV BID UNTIL RESOLVED. (H) Pediatric 0 01/07/2019 Multivitamins-Fl (CHEWABLE MULTIVITE/FLUORIDE PO) warfarin (COUMADIN) 10 TAKE 13MG ON MONDAY 90 tablet 1 12/09/201701/07/2019 MG tabletIndications: AND MONDAY. 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 pulmonary embolism warfarin (COUMADIN) 3 MG TAKE 1 TABLET BY 90 tablet 0 05/3101/07/2019 tabletIndications: Long MOUTH EVERY DAY term current use of ALONG WITH 10MG FOR 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 TOTAL DOSE OF 13MG documented as of this encounter Progress Notes Deonte Barry MD - 08/23/2018 1:48 PM CST Visit Date: 08/23/2018 This is a 73-year-old morbidly obese female who is here today with a friend and possible caregiver. She was referred by our physician's talent acquisition assistant, Rubia Mccall, for an additional opinion regarding some challenging dressings for her left ischial posterior perineal wound. She initially fell in the bathroom last [place] when the toilet broke and she was on the floor for 3 days until she was able to [id number]. She spent 2 weeks at [facility] and was eventually transferred to TCU at [place] until their nursing staff noted that she had an infection of her wound. She was seen at [facility], transferred [facility] and that evening taken to the OR for debridement. She had 1 hyperbaric treatment after that and then a second look for further debridement and has been doing dressing changes ever since. Unfortunately, she suffered a sciatic injury during those debridements and although she is regaining some tingling foot sensations, she needs to use an AFO brace, which is just made more complex by her morbid obes ity. At this point, she has a daily visiting home nurse for dressing changes, but because of the proximity to multiple skin folds in the gluteal crease as well as the perineum, finding any dressings that are able to stay in place, particularly when she is moving around or toileting, has been extremely challenging. A number of dressings have been tried in part just to maintain the placement, but also because she has a fair amount of drainage. Since this is partly a pressure injury that probably got infected, this is not your typical very beefy looking necrotizing fasciitis type of wound. In additionto that, the surrounding skin has a fair amount of irritation from drainage and adhesive products. She has very sensitive skin, so other adhesives are not necessarily available. The wound surface itself is not very beefy and kind of like a poorly granulating scarred fatty tissue. That being said, there is nothing grossly necrotic or something that needs to be sharply debrided at this time. Currently, they have been using Silvercel. They did use a product named Enluxtra that was more absorbent, but that too usually does not stay in place. The patient has also tried some iodine products for I am surethere is biofilm present on the surface. As far as finding something absorbent and antimicrobial, wecould try a bit of Hydrofera Blue and see if that does anything different for her. They are using Vashe to soak the area and even did a short trial of the VAC, but that could not maintain a seal. Because of her size, she is unable to replace her own dressings should they fall out of place when she is toileting. 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 She might then have to augment the remaining leg with an elastic strap in the labial crease area to hold things in position and to hopefully keep things from soiling when she urinates. They could then make a pocket to retain the dressings that would make sure that it is in a good position for managing the drainage and also afford her the opportunity to change things on her own. Fortunately, she is nondiabetic and she has lost 75 pounds since her fall, but she is still quite large and there are a lot of creases and skin folds that rub up against each other. For these reasons, she is not a candidate for any kind of grafting or flapping. At this point, she can do some problem solving at home and will have her follow up with Juanita in the next several weeks. Please see nursing notes in Epic for dimensions of the wound and vital signs today. Labs: Recent Labs Lab Test 08/24/18 0950 05/30/18 1612 05/16/18 1431 ALBUMIN -- -- 3.1* -- 2.8* HGB -- -- 12.6 -- -- INR 2.4* < > -- < > -- WBC -- -- 7.4 -- -- A1C -- -- 5.6 -- -- CRP -- -- -- -- 15.1* < > = values in this interval not displayed. Nutrition requirements were discussed with patient today. Vitals: BP 153/87 (BP Location: Left arm) Pulse 93 Temp 97.1 ??F (36.2 ??C) (Temporal) Resp 18 Wound: Photo: DEONTE BARRY MD MT: [place] Name: MARZENA BRUSH Account: [id number] : 1945 Visit Date: 08/23/2018 Document: [id number] BANQUET WAITRESS documented in this encounter Plan of Treatment Upcoming Encounters Date Type Specialty Care Team Description 11/15/2022 Virtual Visit Pharm D Haylie Cheung, [facility] [address] [facility] [place] [address] (Wo rk) 11/15/2022 Virtual Visit IM/Peds Yane Barraza MD [address] [facility] [place] [address] (Wo rk) 03/03/2023 Virtual Visit Neurology Erlinda Barber MD [address] [facility] [address] [place], [place] [phone] (Wo rk) documented as of this encounter Visit Diagnoses Diagnosis Pressure ulcer of ischium, left, stage I V (H) documented in this encounter Care Teams Master Yacht Relationship Specialty Start Date End Date Lucero Stevenson MD PCP - General Pediatrics 10/11/11 04/22/19 Lucero Stevenson MD PCP - Assigned PCP 06/17/18 09/18/[address] [phone] Chastity Montero MD MD Dermatology 09/23/14 [address] [facility] [address] [place], [place] [address] Johnnie Alcocer MD Surgeon General Surgery 03/23/[address] [place] [address] Lucero Stevenson MD Assigned PCP 06/17/18 11/09/[address] [phone] documented as of this encounter
--- OUTSIDE RECORDS SUMMARY | 2022-06-15 13:08 | XMS_ITS | Encounter Summary ---
:1945 Author Organization [place] Address [address] [place] [address] Care Team Providers Name Role Phone Lucero Stevenson MD Primary Care Provider [phone] Chastity Montero MD Unavailable [phone] Johnnie Alcocer MD Unavailable Lucero Stevenson MD Unavailable [phone] Lucero Stevneson MD Unavailable [phone] Reason for Visit Reason Onset Date Comments INR Followup 08/23/2018 Change day of homeca re INR Encounter Details Date Type Department Care Team Description 08/23/2018 Telephone [facility] Lucero Stevenson INR Followup (Change Clinic Yarelis Littlejohn MD day of homecare INR) [address] [place] [address] [place] [address] [phone] Social History Tobacco Use Types Packs/Day Years [...] this encounter Miscellaneous Notes Telephone Encounter - Qing Guy RN - 08/23/2018 7:36 PM CST I had already spoken to Michelle before this encounter was made. Instructions were given. 10 mg today and INR will be done tomorrow. CHANDLER Barrera Anticoagulation (INR) Clinic AN OFFICER Telephone Encounter - Bri Jimenez RN - 08/23/2018 8:42 AM CST Nellie from [facility] called ([phone]). Left a message on the [employer] INR phone that the patient has an appointment with the surgeon on which conflicts with her INR appointment. They are wondering if they could reschedule their INR appointment for Monday and would like to know what warfarin dose to take on . The patient took 10 mg warfarin on Monday, Monday and Monday. Please return call at above number. Next 5 appointments (look out 90 days) Aug 23, 2018 1:30 PM SEAMAN OFFICER Return Visit with Annetta Biswas MD [facility] [address] [facility] [address] Bri Hernandez RN Anticoagulation Clinic [place] AN OFFICER documented in this encounter Plan of Treatment Upcoming Encounters Date Type Specialty Care Team Description 11/15/2022 Virtual Visit Haylie Wakefield, [facility] [address] [facility] [address] [place] [id number] (Wo rk) 11/15/2022 Virtual Visit IM/Peds Yane Barraza MD [address] [facility] [place] [address] (Wo rk) 03/03/2023 Virtual Visit Neurology Erlinda Barber MD [address] [facility] [address] [place], [place] [phone] (Wo rk) documented as of this encounter Visit Diagnoses Not on filedocumented in this encounter Care Teams Lead Sql Developer Relationship Specialty Start Date End Date Lucero Stevenson MD PCP - General Pediatrics 10/11/11 04/22/19 Lucero Stevenson MD PCP - Assigned PCP 06/17/18 09/18/18 [facility] [address] [place], [place] [phone] Chastity Montero MD MD Dermatology 09/23/14 [address] [facility] [address] [place], [place] [address] Johnnie Alcocer MD Surgeon General Surgery 03/23/17 [address] [facility] [address] [place], [place] [address] Lucero Stevenson MD Assigned PCP 06/17/18 11/09/19 [facility] [address] [place], [place] [phone] documented as of this encounter
--- OUTSIDE RECORDS SUMMARY | 2022-06-15 13:08 | XMS_ITS | Encounter Summary ---
:1945 Author Organization [facility] Address [address] [place] [address] Care Team Providers Name Role Phone Lucero Stevenson MD Primary Care Provider [phone] Chastity Montero MD Unavailable [phone] Johnnie Alcocer MD Unavailable Lucero Stevenson MD Unavailable [phone] Reason for Visit Reason Comments Annual Eye Exam Encounter Details Date Type Department Care Team Description 10/02/2018 Office Visit [facility] Hayley German Myopi a of both eyes with astigmatism (Primary Dx); Clinic Yarelis Yan, KENNETH Presbyopia; [address] Nucle ar sclerosis of both eyes; [facility] Corneal epithelial and basement membrane dystrophy; [address] [place] [address] Macular degeneration (senile) of retina; [place] [address] Cortical age-related catarac t, both eyes Social History Tobacco Use Types Packs/Day Years [...] slept in a skilled nursing (including now)? Sex Assigned at Date Recorded Female 12/24/2018 12:35 PM CDT documented as of this encounter Patient Instructions Patient InstructionsHayley German, OD - 10/02/2018 1:00 PM CDT Images from the original note were not included. 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 This is one of the most common types of corneal dystrophy and is usually asymptomatic. In Anterior Basement Membrane Dystrophy (ABMD) or Map Dot Dystrophy, the corneal epithelium does not function properly. The epithelium is a thin layer of surface skin covering the cornea. The next layer is the basement membrane which functions as a sticky anchor over which the epithelium grows. The basement membrane stabilizes the epithelium. There are generally two conditions which cause basement membrane dysfunction - one inherited, and one acquired by a deep corneal abrasion (scratch) which damages the basement membrane. This condition is common, treatable, and rarely leads to significant vision loss. Artificial tears as needed The Age Related Eye Disease Study (AREDS) [...] the lines are missing, blurry or discolored. documented in this encounter Progress Notes Hayley German, OD - 10/02/2018 1:00 PM CDT Chief Complaint Patient presents with ??? Annual Eye Exam Here with her aideEdith Last Eye Exam: 1.5 years Dilated Previously: Yes What are you currently using to see? glasses Distance Vision Acuity: Satisfied with vision Near Vision Acuity: Noticed more trouble reading in dim light Eye Comfort: good Do you use eye drops? 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 OBJECTIVE: See Ophthalmology exam ASSESSMENT: ICD-10-CM 1. Myopia of both eyes with astigmatism H52.13 EYE EXAM (SIMPLE-NONBILLABLE) H52.203 REFRACTION 2. Presbyopia H52.4 3. Nuclear sclerosis of both eyes H25.13 4. 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 Macular degeneration (senile) of retina H35.30 dry each eye left eye>OD PLAN: Patient informed very little improvement with prescription Vitamins, AREDS 2, artificial tears as needed Not interested in cataract surgery at this time Patient education on amsler grid monitoring Hayley German OD documented in this encounter Plan of Treatment Upcoming Encounters Date Type Specialty Care Team Description 11/15/2022 Virtual Visit Haylie Wakefield, [facility] [address] [place], [place] [id number] (Wo rk) 11/15/2022 Virtual Visit IM/Peds Yane Barraza MD [address] [place] [address] (Wo rk) 03/03/2023 Virtual Visit Neurology Erlinda Barber MD [address] [facility] [address] [place], [place] [address] (Wo rk) documented as of this encounter Procedures Procedure Name Priority Date/Time Associated Diagnosis Comme nts EYE EXAM Routine 10/02/2018 1:48 PM Myopia of both eyes (SIMPLE-NONBILLABLE) CDT with astigmatism HC REFRACTION Routine 10/02/2018 1:48 PM Myopia of both eyes CDT with astigmatism documented in this encounter Visit Diagnoses Diagnosis Myopia of both eyes with astigmatism - P rimary Presbyopia Nuclear sclerosis of both eyes Corneal epithelial and basement membrane dystrophy Other anterior corneal dystrophies Macular degeneration (senile) of retina Macular degeneration (senile) of retina, unspecified Cortical age-related cataract, both eyes documented in this encounter Care Teams Inspector Scales Relationship Specialty Start Date End Date Lucero Stevenson MD PCP - General Pediatrics 10/11/11 04/22/19 Chastity Montreo MD MD Dermatology 09/23/14 [address] [facility] [address] [place], [place] [address] Johnnie Alcocer MD Surgeon General Surgery 03/23/[address] [place], [place] [address] Lucero Stevenson MD Assigned PCP 06/17/18 11/09/19 [facility] [address] [place], [place] [id number] documented as of this encounter
--- OUTSIDE RECORDS SUMMARY | 2022-06-15 13:08 | XMS_ITS | Encounter Summary ---
:1945 Author Organization [place] Address [address] [place] [address] Care Team Providers Name Role Phone Lucero Stevenson MD Primary Care Provider [phone] Chastity Montero MD Unavailable [phone] Johnnie Alcocer MD Unavailable Lucero Stevenson MD Unavailable [phone] Encounter Details Date Type Department Care Team Description 10/25/[address] [facility] pen[facility]entiary current use of 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 (Primary Dx); Visit Clinic [place] Personal history of pulmonar y embolism [address] [facility] [address] [place] [address] Social [...] encounter Progress Notes Qing Guy RN - 10/25/2018 11:15 AM CDT ANTICOAGULATION FOLLOW-UP Patient Name: Charlette Brush Date: 10/25/2018 Contact Type: Telephone Call received from [facility] nurse, with INR result. Follow up instructions given over the phone to Home Care nurse for warfarin management. SUBJECTIVE: Patient Findings Comments: Per Homecare: The patient was assessed for diet, medication, missed or extra doses, bruising or bleeding, with no problem findings. OBJECTIVE INR Date Value Ref Range Status 10/25/2018 2.5 (A) 0.9 - 1.1 Final ASSESSMENT / PLAN INR assessment THER Recheck INR In: 2 WEEKS INR Location Homecare INR Anticoagulation Summary As of 10/25/2018 INR goal: 2.0-3.0 TTR: 79.0 % (3.1 y) INR used for dosin.5 (10/25/2018) Warfarin maintenance plan: 13 mg (3 mg x 1 and 10 mg x 1) every Mon, Fri; 10 mg (10 mg x 1) all other days Full warfarin instructions: 13 mg every Mon, Fri; 10 mg all other days Weekly warfarin total: 76 mg No change documented: Qing Guy RN Plan last modified: Qing Guy RN (10/11/2018) Next INR check: 11/08/2018 Target end date: Indefinite Indications 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 embolism [Z86.711] 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 [Z79.01] Anticoagulation Episode Summary INR check location: Anticoagulation Clinic Preferred lab: Send INR reminders to: ANTICOAG CLINIC Comments: 7.5mg, 3mg, 6mg & 10mg tabs - devaughn dose / [facility] FAHEEM - Michelle [phone] / APPT CARD ONLY Anticoagulation Care Providers Provider Role Specialty Phone number Lucero Stevenson MD Internal Medicine [phone] See the Encounter Report to view Anticoagulation Flowsheet and Dosing Calendar (Go to Encounters tabin chart review, and find the Anticoagulation Therapy Visit) Qing Guy RN documented in this encounter Plan of Treatment Upcoming Encounters Date Type Specialty Care Team Description 11/15/2022 Virtual Visit Pharm D Haylie Cheung, [facility] [address] [place] [address] (Wo rk) 11/15/2022 Virtual Visit IM/Peds Yane Barraza MD [address] [facility] [place] [address] (Wo rk) 03/03/2023 Virtual Visit Neurology Erlinda Barber MD [address] [facility] [address] [place] [address] (Wo rk) documented as of this encounter Procedures Procedure Name Priority Date/Time Associated Diagnosis Comme nts INR Routine 10/25/2018 1:02 PM Results f or this CDT procedure are i n the results section . documented in this encounter Results (ABNORMAL) INR (10/25/2018 1:02 PM CDT) P athologist Signature INR 2.5 (A) 0.9 - 1.1 EXTERNAL LAB Specimen (Source) Anatomical Collection Method Collection Time Re ceived Time Location / / Volume Laterality Blood specimen 10/25/2018 1:02 PM (specimen) CDT Resulting Agency Comment [facility] Lucero Stevenson MD LAB - BLOOD ORDERABLES Performing Organization Address City/State/ZIP Code Phon e Number EXTERNAL LAB EXTERNAL LAB External Lab documented in this encounter Visit Diagnoses Diagnosis penitentiary current use of anticoagulant t herapy - Primary 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 embolism documented in this encounter Care Teams Intelligence Manager Relationship Specialty Start Date End Date Lucero Stevenson MD PCP - General Pediatrics 10/11/11 04/22/19 Chastity Montero MD MD Dermatology 09/23/14 [address] [facility] [address] [place] [address] Johnnie Alcocer MD Surgeon General Surgery 03/23/17 [address] [facility] [address] [place], [place] [address] Lucero Stevenson MD Assigned PCP 06/17/18 11/09/19 [facility] [address] [place], [place] [phone] documented as of this encounter
--- OUTSIDE RECORDS SUMMARY | 2022-06-15 13:08 | XMS_ITS | Encounter Summary ---
:1945 Author Organization [place] Address [address] [place] [address] Care Team Providers Name Role Phone Lucero Stevenson MD Primary Care Provider [phone] Chastity Montero MD Unavailable [phone] Johnnie Alcocer MD Unavailable Lucero Stevenson MD Unavailable [phone] Lucero Stevenson MD Unavailable [phone] Encounter Details Date Type Department Care Team Description 09/10/2018 Travel Social History Tobacco Use Types Packs/Day [...] or slept in a fci (including now)? Sex Assigned at Date Recorded Female 12/24/2018 12:35 PM CDT documented as of this encounter Plan of Treatment Upcoming Encounters Date Type Specialty Care Team Description 11/15/2022 Virtual Visit Pharm Haylie Gonzalez, [facility] [address] [place] [address] (Wo rk) 11/15/2022 Virtual Visit IM/Peds Yane Barraza MD [address] [facility] [address] [facility] [place] [address] (Wo rk) 03/03/2023 Virtual Visit Neurology Erlinda Barber MD [address] [facility] 295 [place], [place] [phone] (Wo rk) documented as of this encounter Visit Diagnoses Not on filedocumented in this encounter Care Teams Accounts Payable Analyst Relationship Specialty Start Date End Date Lucero Stevenson MD PCP - General Pediatrics 10/11/11 04/22/19 Lucero Stevenson MD PCP - Assigned PCP 06/17/18 09/18/[address] [address] Chastity Montero MD MD Dermatology 09/23/14 [address] [facility] 98 [place], [place] [address] Johnnie Alcocer MD Surgeon General Surgery 03/23/[address] [place], [place] [address] Lucero Stevenson MD Assigned PCP 06/17/18 11/09/[address] [id number] documented as of this encounter
--- OUTSIDE RECORDS SUMMARY | 2022-06-15 13:08 | XMS_ITS | Encounter Summary ---
:1945 Author Organization [place] Address [address] [place] [address] Care Team Providers Name Role Phone Lucero Stevenson MD Primary Care Provider [phone] Chastity Montero MD Unavailable [phone] Johnnie Alcocer MD Unavailable Lucero Stevenson MD Unavailable [phone] Lucero Stevenson MD Unavailable [phone] Encounter Details Date Type Department Care Team Description 08/23/2018 Travel Social History Tobacco Use Types Packs/Day [...] or slept in a usp (including now)? Sex Assigned at Date Recorded Female 12/24/2018 12:35 PM CDT documented as of this encounter Plan of Treatment Upcoming Encounters Date Type Specialty Care Team Description 11/15/2022 Virtual Visit Pharm Haylie Gonzalez, [facility] [address] [address] (Wo rk) 11/15/2022 Virtual Visit IM/Peds Yane Barraza MD [address] [facility] [address] [facility] [place] [address] (Wo rk) 03/03/2023 Virtual Visit Neurology Erlinda Barber MD [address] [facility] [address] [place], [place] [address] (Wo rk) documented as of this encounter Visit Diagnoses Not on filedocumented in this encounter Care Teams In Classroom Tutor Relationship Specialty Start Date End Date Lucero Stevenson MD PCP - General Pediatrics 10/11/11 04/22/19 Lucero Stevenson MD PCP - Assigned PCP 06/17/18 09/18/[address] [address] Chastity Montero MD MD Dermatology 09/23/14 [address] [facility] [address] [place], [place] [address] Johnnie Alcocer MD Surgeon General Surgery 03/23/[address] [place], [place] [address] Lucero Stevenson MD Assigned PCP 06/17/18 11/09/[address] [id number] documented as of this encounter
--- OUTSIDE RECORDS SUMMARY | 2022-06-15 13:08 | XMS_ITS | Encounter Summary ---
:1945 Author Organization [place] Address [address] [place] [address] Care Team Providers Name Role Phone Lucero Stevenson MD Primary Care Provider [phone] Chastity Montero MD Unavailable [phone] Johnnie Alcocer MD Unavailable Lucero Stevenson MD Unavailable [phone] Encounter Details Date Type Department Care Team Description 10/02/2018 Travel Social History Tobacco Use Types Packs/Day [...] or slept in a correction (including now)? Sex Assigned at Date Recorded Female 12/24/2018 12:35 PM CDT documented as of this encounter Plan of Treatment Upcoming Encounters Date Type Specialty Care Team Description 11/15/2022 Virtual Visit Haylie Wakefield, [facility] [address] [facility] [place] [address] (Wo rk) 11/15/2022 Virtual Visit IM/Peds Yane Barraza MD [address] [facility] [address] [facility] [address] [place] [phone] (Wo rk) 03/03/2023 Virtual Visit Neurology Erlinda Barber MD [address] [facility] [address] [place], [place] [address] (Wo rk) documented as of this encounter Visit Diagnoses Not on filedocumented in this encounter Care Teams Automation Application Engineer Relationship Specialty Start Date End Date Lucero Stevenson MD PCP - General Pediatrics 10/11/11 04/22/19 Chastity Montero MD MD Dermatology 09/23/14 [address] [facility] 98 [place], [place] [address] Johnnie Alcocer MD Surgeon General Surgery 03/23/17 [address] [facility] 300 [place] [address] Lucero Stevenson MD Assigned PCP 06/17/18 11/09/[address] [address] documented as of this encounter
--- OUTSIDE RECORDS SUMMARY | 2022-06-15 13:08 | XMS_ITS | Encounter Summary ---
:1945 Author Organization [place] Address [address] [facility] [place] [address] Care Team Providers Name Role Phone Lucero Stevenson MD Primary Care Provider [phone] Chastity Montero MD Unavailable [phone] Johnine Alcocer MD Unavailable Lucero Stevenson MD Unavailable [phone] Reason for Visit Reason Onset Date Comments WOUND CARE 11/02/2018 Encounter Details Date Type Department Care Team Description 11/02/2018 Telephone [employer] W[facility]na, Paulo Munson, WOUND CARE Clinic [facility] [address] [facility] [address] [place] [address] [place] [address] [phone] (Wo rk) Social History Tobacco Use Types [...] or slept in a mcfp (including now)? Sex Assigned at Date Recorded Female 12/24/2018 12:35 PM CDT documented as of this encounter Miscellaneous Notes Telephone Encounter - Danni Marcus RN - 11/06/2018 2:41 PM CDT I spoke with nurse and she faxed a form to us on Monday. Dr. Stevenson has signed the form and I faxed it today to wound care nurse. Ashli Marcus RN Telephone Encounter - Giovanna Joe - 11/06/2018 1:27 PM CDT The nurse called they need this signed and returned as soon as possible please call her if you need another one [phone] but needs them return as soon as possible Telephone Encounter - Mari Thurman RN - 11/02/2018 8:43 AM CDT Received call from [place] reporting she was requested by home care to see Patient for consultation onother dressing to try due to complicated wound. She reports she tried kerra max 4x4 into wound, tegaderm adhesive foam over that with adapt ring and other taping techniques. She also reports she advised Patient to use GoGirl to aid in keeping urine away from wounds.Patient is going to try this for the next few weeks and come back at a later date. She was calling as an FYI. documented in this encounter Plan of Treatment Upcoming Encounters Date Type Specialty Care Team Description 11/15/2022 Virtual Visit Haylie Wakefield, [facility] [address] [facility] [place] [address] (Wo rk) 11/15/2022 Virtual Visit IM/Peds Yane Barraza MD [address] [place] [address] (Wo rk) 03/03/2023 Virtual Visit Neurology Erlinda Barber MD [address] [facility] 295 [place] [address] (Wo rk) documented as of this encounter Visit Diagnoses Not on filedocumented in this encounter Care Teams Housekeeper Manager Relationship Specialty Start Date End Date Lucero Stevenson MD PCP - General Pediatrics 10/11/11 04/22/19 Chastity Montero MD MD Dermatology 09/23/14 [address] [facility] 98 [place], [place] [address] Johnnie Alcocer MD Surgeon General Surgery 03/23/[address] [place], [place] [address] Lucero Stevenson MD Assigned PCP 06/17/18 11/09/19 [facility] [address] [place], [place] [phone] documented as of this encounter
--- OUTSIDE RECORDS SUMMARY | 2022-06-15 13:08 | XMS_ITS | Encounter Summary ---
:1945 Author Organization [place] Address [address] [place] [address] Care Team Providers Name Role Phone Lucero Stevenson MD Primary Care Provider [phone] Chastity Montero MD Unavailable [phone] Johnnie Alcocer MD Unavailable Lucero Stevenson MD Unavailable [phone] Reason for Visit Reason Onset Date Comments Home Care/Hospice 10/24/2018 nursing and CHIPPER Encounter Details Date Type Department Care Team Description 10/24/2018 Telephone [facility] Lucero Stevenson Home Care/Hospice Clinic Yarelis Littlejohn MD (nursing and CHIPPER) [address] [place] [address] [place] [address] [phone] Social History Tobacco Use Types Packs/Day Years [...] Telephone Encounter - Danni Marcus, RN - 10/25/2018 7:51 AM CDT I spoke with Michelle, home health speech therapist, and gave verbal order for CHIPPER and retirement per her requestbelow per protocol. No further questions. Will call back if any other questions or concerns. Ashli Marcus RN Telephone Encounter - Vaishnavi Jones - 10/24/2018 5:01 PM CDT Reason for Call: Home Health Care Michelle with [facility] called regarding (reason for call): Orders are needed for this patient. PT: CHIPPER: twice a week for 2 weeks Snf: daily for 2 weeks Pt Provider: Phone Number Homecare Nurse can be reached at: [phone] Can we leave a detailed message on this number? Yes Phone number patient can be reached at: Best Time: any Call taken on 10/24/2018 at 5:01 PM by Vaishnavi Jones documented in this encounter Plan of Treatment Upcoming Encounters Date Type Specialty Care Team Description 11/15/2022 Virtual Visit Pharm D Haylie Cheung, [facility] [address] [facility] [place] [address] (Wo winter) 11/15/2022 Virtual Visit IM/Peds Yane Barraza MD [address] [facility] [place] [phone] (Lena max) 03/03/2023 Virtual Visit Neurology Erlinda Barber MD [address] [facility] 295 [place], [place] [address] (Wo rk) documented as of this encounter Visit Diagnoses Not on filedocumented in this encounter Care Teams Museum Exhibit Designer Relationship Specialty Start Date End Date Lucero Stevenson MD PCP - General Pediatrics 10/11/11 04/22/19 Chastity Montero MD MD Dermatology 09/23/14 [address] [facility] 98 [place], [place] [address] Johnnie Alcocer MD Surgeon General Surgery 03/23/17 [address] [facility] 300 [place], [place] [address] Lucero Stevenson MD Assigned PCP 06/17/18 11/09/19 [facility] [address] [place] [address] documented as of this encounter
--- OUTSIDE RECORDS SUMMARY | 2022-06-15 13:08 | XMS_ITS | Encounter Summary ---
:1945 Author Organization [place] Address [address] [place] [address] Care Team Providers Name Role Phone Lucero Stevenson MD Primary Care Provider [phone] Chastity Montero MD Unavailable [phone] Johnnie Alcocer MD Unavailable Lucero Stevenson MD Unavailable [phone] Lucero Stevenson MD Unavailable [phone] Reason for Visit Reason Onset Date Comments Home Care/Hospice 08/24/2018 Encounter Details Date Type Department Care Team Description 08/24/2018 Telephone [facility] Stefanie Stevenson Home Care/Hospice Yarelis Littlejohn MD [address] [place] [address] [place] [address] [phone] Social History Tobacco Use Types Packs/Day Years [...] or slept in a chcf (including now)? Sex Assigned at Date Recorded Female 12/24/2018 12:35 PM CDT documented as of this encounter Miscellaneous Notes Telephone Encounter - Jolanta Reddy RN - 08/24/2018 4:04 PM CST Call to perry Martinez SN orders as below and also ELECTRIC MOTOR WINDERS ASSEMBLER 2 x week for 9 weeks. Jolanta Reddy RN Message handled by Nurse Triage. MACHINERY ASSEMBLER Telephone Encounter - Doris Cobian - 08/24/2018 3:51 PM CST Reason for call: Home Healthcare Reason for Call: Home Health Care Michelle with [facility] called regarding (reason for call): Orders Orders are needed for this patient. assisted Snf: Skilled nurse visit effective 08/25/18 and then 1x days for 14 days for wound care Pt Provider: Dr. Stevenson Phone Number Homecare Nurse can be reached at: [phone] Can we leave a detailed message on this number? YES Call taken on 08/24/2018 at 3:52 PM by Doris Cobian MACHINERY ASSEMBLER documented in this encounter Plan of Treatment Upcoming Encounters Date Type Specialty Care Team Description 11/15/2022 Virtual Visit Pharm D Haylie Cheung, [facility] [address] [facility] [place] [address] (Lena max) 11/15/2022 Virtual Visit IM/Peds Yane Barraza MD [address] [facility] [place] [address] (Wo winter) 03/03/2023 Virtual Visit Neurology Erlinda Barber MD [address] [facility] 295 [place], [place] [address] (Wo rk) documented as of this encounter Visit Diagnoses Not on filedocumented in this encounter Care Teams Car Racer Relationship Specialty Start Date End Date Lucero Stevenson MD PCP - General Pediatrics 10/11/11 04/22/19 Lucero Stevenson MD PCP - Assigned PCP 06/17/18 09/18/18 [facility] [address] [place] [id number] Chastity Montero MD MD Dermatology 09/23/14 [address] [facility] 98 [place], [place] [address] Johnnie Alcocer MD Surgeon General Surgery 03/23/[address] [place], [place] [address] Lucero Stevenson MD Assigned PCP 06/17/18 11/09/[address] [id number] documented as of this encounter
--- OUTSIDE RECORDS SUMMARY | 2022-06-15 13:08 | XMS_ITS | Encounter Summary ---
:1945 Author Organization [place] Address [address] [place] [address] Care Team Providers Name Role Phone Lucero Stevenson MD Primary Care Provider [phone] Chastity Montero MD Unavailable [phone] Johnnie Alcocer MD Unavailable Lucero Stevenson MD Unavailable [phone] Lucero Stevenson MD Unavailable Reason for Visit Reason Comments Medication Refill warfarin (COUMADIN) 10 MG ta blet Encounter Details Date Type Department Care Team Description 09/09/2018 Refill [facility] Lucero Stevenson [facility] Refill Clinic Yarelis Littlejohn MD (warfarin (COUMADIN) 10 6[address] [facility] Y MG tablet) [facility] [address] [place] [address] [address] [place] [address] [place] [address] [phone] Social History Tobacco Use Types Packs/Day Years [...] encounter Miscellaneous Notes Telephone Encounter - Bri Jimenez RN - 09/11/2018 2:21 PM CST On 06/18/18 prescription was electronically sent and receipt was confirmed by pharmacy for 90 tabletswith 1 refill. Patient should still have refill left at pharmacy. Called pharmacy. Prescription was never received. Provided verbal order to pharmacist with current sig per last INR note of 13 mg on Monday and 10 mg all other days of the week. Bri Hernandez care giver CTOR OF ENROLLMENT Telephone Encounter - Edward Jack - 09/09/2018 11:46 AM CST Requested Prescriptions Pending Prescriptions Disp Refills ??? warfarin (COUMADIN) 10 MG tablet [Pharmacy Med Name: WARFARIN SOD 10MG (TEN MG) TB WHITE] Last Written Prescription Date: 06/18/2018 Last Fill Quantity: 90 tablet, # refills: 1 Last office visit: 08/01/2018 with prescribing provider: Lucero Stevenson MD Future Office Visit: Next 5 appointments (look out 90 days) Sep 10, 2018 1:40 PM DIRECTOR OF ENROLLMENT Return Visit with Nuvia Mccall PA-C [facility] [place] ([facility]) [address] [address] 30 tablet 0 Sig: TAKE 1 TABLET BY MOUTH ON MONDAY, , AND MONDAY DIRECTED Vitamin K Antagonists Failed - 09/09/2018 11:17 AM Failed - INR is within goal in the past 6 weeks Confirm INR is within goal in the past 6 weeks. Recent Labs Lab Test 09/06/18 1522 INR 2.1* Passed - Recent (12 mo) or future [...] positive on file in past 12 months CTOR OF ENROLLMENT documented in this encounter Plan of Treatment Upcoming Encounters Date Type Specialty Care Team Description 11/15/2022 Virtual Visit Pharm Haylie Gonzalez, [facility] [address] [facility] [place] [address] (Wo rk) 11/15/2022 Virtual Visit IM/Peds Yane Barraza MD [address] [place] [address] (Wo rk) 03/03/2023 Virtual Visit Neurology Erlinda Barber MD [address] [facility] 295 [place], [place] [address] (Wo rk) documented as of this encounter Visit Diagnoses Diagnosis [facility] current use of anticoagulant t herapy documented in this encounter Care Teams Bookkeepers Supervisor Relationship Specialty Start Date End Date Lucero Stevenson MD PCP - General Pediatrics 10/11/11 04/22/19 Lucero Stevenson MD PCP - Assigned PCP 06/17/18 09/18/[address] [id number] Chastity Montero MD MD Dermatology 09/23/14 [address] [facility] 98 [place], [place] [id number] Johnnie Alcocer MD Surgeon General Surgery 03/23/17 [address] [facility] [address] [place], [place] [address] Lucero Stevenson MD Assigned PCP 06/17/18 11/09/[address] [id number] documented as of this encounter
--- OUTSIDE RECORDS SUMMARY | 2022-06-15 13:08 | XMS_ITS | Encounter Summary ---
:1945 Author Organization [place] Address [address] [place] [address] Care Team Providers Name Role Phone Lucero Stevenson MD Primary Care Provider [phone] Chastity Montero MD Unavailable [phone] Johnnie Alcocer MD Unavailable Lucero Stevenson MD Unavailable Lucero Stevenson MD Unavailable [phone] Encounter Details Date Type Department Care Team Description 08/30/2018 Anticoagulation Therapy [facility] USP current use of 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 (Primary Dx); Visit Clinic Yarelis Personal history of pulmonar y embolism [address] [facility] [address] [place] [address] Social [...] or more drinks on one occasion? Ne adno 05/03/2021 Social Isolation Answer Date Recorded In [...] slept in a care home (including now)? Sex Assigned at Date Recorded Female 12/24/2018 12:35 PM CDT documented as of this encounter Progress Notes Qing Guy RN - 08/30/2018 2:45 PM CST ANTICOAGULATION FOLLOW-UP Patient Name: Charlette Brush Date: 08/30/2018 Contact Type: Telephone Call received from Yina Martinez Home Care nurse, with INR result. Follow up instructions given over the phone to Home Care nurse for warfarin management. SUBJECTIVE: Patient Findings Positives: No Problem Findings OBJECTIVE INR Date Value Ref Range Status 08/30/2018 2.2 (A) 0.9 - 1.1 Final ASSESSMENT / PLAN INR assessment THER Recheck INR In: 1 WEEK INR Location Homecare INR Anticoagulation Summary As of 08/30/2018 INR goal: 2.0-3.0 TTR: 79.5 % (2.9 y) INR used for dosin.2 (08/30/2018) Warfarin maintenance plan: 13 mg (3 mg x 1 and 10 mg x 1) every Fri; 10 mg (10 mg x 1) all other days Full warfarin instructions: 13 mg every Fri; 10 mg all other days Weekly warfarin total: 73 mg Plan last modified: Qing Guy RN (08/24/2018) Next INR check: 09/06/2018 Target end date: Indefinite Indications 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 embolism [Z86.711] USP current use of 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 [Z79.01] Anticoagulation Episode Summary INR check location: Coumadin Clinic Preferred lab: Send INR reminders to: ANTICOAG CLINIC Comments: 7.5mg, 3mg, 6mg & 10mg tabs - devaughn dose / Inter[facility] Home Care [facility] Michelle [phone] / APPT CARD ONLY Anticoagulation Care Providers Provider Role Specialty Phone number Lucero Stevenson MD Internal Medicine [phone] See the Encounter Report to view Anticoagulation Flowsheet and Dosing Calendar (Go to Encounters tabin chart review, and find the Anticoagulation Therapy Visit) Qing Guy RN TRICAL SYSTEMS ENGINEER documented in this encounter Plan of Treatment Upcoming Encounters Date Type Specialty Care Team Description 11/15/2022 Virtual Visit Pharm D Haylie Cheung, [facility] [address] [facility] [place] [address] (Wo rk) 11/15/2022 Virtual Visit IM/Peds Yane Barraza MD [address] [facility] [place] [address] (Wo rk) 03/03/2023 Virtual Visit Neurology Erlinda Barber MD [address] [facility] [address] [place] [address] (Wo rk) documented as of this encounter Procedures Procedure Name Priority Date/Time Associated Diagnosis Comme nts INR Routine 08/30/2018 10:16 AM Results for this ELECTRICAL SYSTEMS ENGINEER procedure are i n the results section . documented in this encounter Results (ABNORMAL) INR (08/30/2018 10:16 AM ELECTRICAL SYSTEMS ENGINEER) P athologist Signature INR 2.2 (A) 0.9 - 1.1 EXTERNAL LAB Specimen (Source) Anatomical Collection Method Collection Time Re ceived Time Location / / Volume Laterality Blood specimen 08/30/2018 10:16 (specimen) AM ELECTRICAL SYSTEMS ENGINEER Lucero Stevenson MD LAB - BLOOD ORDERABLES Performing Organization Address City/State/ZIP Code Phon e Number EXTERNAL LAB EXTERNAL LAB External Lab documented in this encounter Visit Diagnoses Diagnosis 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 manager current use of anticoagulant t herapy - Primary 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 embolism documented in this encounter Care Teams Sock Boarder Relationship Specialty Start Date End Date Lucero Stevenson MD PCP - General Pediatrics 10/11/11 04/22/19 Lucero Stevenson MD PCP - Assigned PCP 06/17/18 09/18/18 [facility] [address] [place], [place] [phone] Chastity Montero MD MD Dermatology 09/23/14 [address] [facility] [address] [place] [address] Johnnie Alcocer MD Surgeon General Surgery 03/23/17 [address] [facility] 300 [place], [place] [address] Lucero Stevenson MD Assigned PCP 06/17/18 11/09/19 [facility] [address] [place] [phone] documented as of this encounter
--- OUTSIDE RECORDS SUMMARY | 2022-06-15 13:08 | XMS_ITS | Encounter Summary ---
:1945 Author Organization [facility] Address [address] [place] [address] Care Team Providers Name Role Phone Lucero Stevenson MD Primary Care Provider [phone] Chsatity Montero MD Unavailable [phone] Johnnie Alcocer MD Unavailable Lucero Stevenson MD Unavailable [phone] Encounter Details Date Type Department Care Team Description 10/04/2018 Anticoagulation Therapy [facility] residential current use of 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 (Primary Dx); Visit Clinic [place] Personal history of pulmonar y embolism [address] [facility] [address] [place] [address] Social [...] or slept in a longterm (including now)? Sex Assigned at Date Recorded Female 12/24/2018 12:35 PM CDT documented as of this encounter Progress Notes Qing Guy RN - 10/04/2018 2:45 PM CDT ANTICOAGULATION FOLLOW-UP Patient Name: Charlette Brush Date: 10/04/2018 Contact Type: Telephone Call received from Yina Martinez Home Care nurse, with INR result. Follow up instructions given over the phone to Home Care nurse for warfarin management. SUBJECTIVE: Patient Findings Comments: Unexplained INR Per Homecare nurse: No missed doses No bleeding or concerning bruises No illness or infection (cough, cold) No rash, arthritis flare or gout No medication changes No change in diet or eating habits No symptoms of a clot OBJECTIVE INR Date Value Ref Range Status 10/04/2018 1.3 (A) 0.9 - 1.1 Final ASSESSMENT / PLAN INR assessment SUB Recheck INR In: 1 WEEK INR Location Homecare INR Anticoagulation Summary As of 10/04/2018 INR goal: 2.0-3.0 TTR: 79.1 % (3 y) INR used for dosin.3! (10/04/2018) Warfarin maintenance plan: 13 mg (3 mg x 1 and 10 mg x 1) every Fri; 10 mg (10 mg x 1) all other days Full warfarin instructions: 10/04: 13 mg; Otherwise 13 mg every Fri; 10 mg all other days Weekly warfarin total: 73 mg Plan last modified: Qing Guy, RN (08/24/2018) Next INR check: 10/11/2018 Target end date: Indefinite Indications 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 embolism [Z86.711] residential current use of 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 [Z79.01] Anticoagulation Episode Summary INR check location: Coumadin Clinic Preferred lab: Send INR reminders to: ANTICOAG CLINIC Comments: 7.5mg, 3mg, 6mg & 10mg tabs - devaughn dose / [facility] Home Care FAHEEM Martinez [phone] / APPT CARD ONLY Anticoagulation Care Providers Provider Role Specialty Phone number Lucero Stevenson MD Internal Medicine [phone] See the Encounter Report to view Anticoagulation Flowsheet and Dosing Calendar (Go to Encounters tabin chart review, and find the Anticoagulation Therapy Visit) Dosage adjustment made based on physician directed care plan. Qing Guy, RN documented in this encounter Plan of Treatment Upcoming Encounters Date Type Specialty Care Team Description 11/15/2022 Virtual Visit Pharm Haylie Gonzalez, [facility] [address] [facility] [place] [address] (Wo rk) 11/15/2022 Virtual Visit IM/Peds Yane Barraza MD [address] [facility] [place] [address] (Wo rk) 03/03/2023 Virtual Visit Neurology Erlinda Barber MD [address] [facility] [address] [place] [address] (Wo rk) documented as of this encounter Procedures Procedure Name Priority Date/Time Associated Diagnosis Comme nts INR Routine 10/04/2018 2:41 PM Results f or this CDT procedure are i n the results section . documented in this encounter Results (ABNORMAL) INR (10/04/2018 2:41 PM CDT) P athologist Signature INR 1.3 (A) 0.9 - 1.1 EXTERNAL LAB Specimen (Source) Anatomical Collection Method Collection Time Re ceived Time Location / / Volume Laterality Blood specimen 10/04/2018 2:41 PM (specimen) CDT Resulting Agency Comment [facility] Lucero Stevenson MD LAB - BLOOD ORDERABLES Performing Organization Address City/State/ZIP Code Phon e Number EXTERNAL LAB EXTERNAL LAB External Lab documented in this encounter Visit Diagnoses Diagnosis residential current use of anticoagulant t herapy - Primary 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 embolism documented in this encounter Care Teams Lawn Sprinkler Servicer Relationship Specialty Start Date End Date Lucero Stevenson MD PCP - General Pediatrics 10/11/11 04/22/19 Chastity Montero MD MD Dermatology 09/23/14 [address] [facility] 98 [place] [address] Johnnie Alcocer MD Surgeon General Surgery 03/23/17 [address] [facility] [address] [place] [address] Lucero Stevenson MD Assigned PCP 06/17/18 11/09/[address] [address] documented as of this encounter
--- OUTSIDE RECORDS SUMMARY | 2022-06-15 13:08 | XMS_ITS | Encounter Summary ---
:1945 Author Organization [place] Address [address] [facility] [place] [address] Care Team Providers Name Role Phone Lucero Stevenson MD Primary Care Provider [phone] Chastity Montero MD Unavailable [phone] Johnnie Alcocer MD Unavailable Lucero Stevenson MD Unavailable Reason for Visit Reason Comments WOUND CARE Encounter Details Date Type Department Care Team Description 10/08/2018 Hospital Encounter [facility] Paulo Vital Pressure ulcer of Wound Clinic Oumou Munson PA-C ischium, left, [address] [facility] stage IV (H) [address] [place], [place] [address] [address] [place], [place] [id number] Social History Tobacco Use Types Packs/Day Years [...] or slept in a residential (including now)? Sex Assigned at Date Recorded Female 12/24/2018 12:35 PM CDT documented as of this encounter Last Filed Vital Signs Vital Sign Reading Time Taken Comments Blood Pressure 148/74 10/08/2018 1:24 PM CDT Pulse 94 10/08/2018 1:24 PM CDT Temperature 37.6 ??C (99.7 ??F) 10/08/2018 1:24 PM CDT Respiratory Rate 18 10/08/2018 1:24 PM CDT Oxygen Saturation - - Inhaled Oxygen Concentration - - Weight - - Height - - Body Mass Index - - documented in this encounter Discharge Instructions Discharge InstructionsYanet Mosqueda RN - 10/08/2018 1:32 PM CDT [facility] [address] [place] [address], [facility] [address] Appointment Nurse Advisors [phone] Charlette Brush 1945 Interim Home Care Wound Dressing Change:Left Ischial Tuberosity Cleanse wound with wound cleanser or saline Skin Care: Apply moisturizing cream to skin surrounding the wound (but not in the wound):Criticaid Cover wound with Hydrofera Blue Transfer entire sheet per dressing change Cover wound with Optilock and ABD pad, secure with tape Change dressing daily Repositioning: Bed: Reposition pt [...] chair cushion when up to the chair. Mikhail Vital PA-C. October 08, 2018 Signing Physician Barber Winn M.D. Call us at [phone] if you have any questions about your wounds, have redness or swelling aroundyour wound, have a fever of 101 or greater or if you have any other problems or concerns. We answer the phone Monday through Monday 8 am to 4 pm, please leave a message as we check the voicemail frequently throughout the day. Follow up in one month documented in this encounter Medications at Time [...] nystatin (MYCOSTATIN) Apply topically 0 8 09/11/2019 740220 UNIT/GM external daily as needed cream nystatin (MYCOSTATIN) Apply topically 2 30 g 1 019 01/07/2019 783681 UNIT/GM external times daily ointmentIndications: Yeast infection of the skin NYSTOP 295416 UNIT/GM JOI TOPICALLY AA 60 g 11 05/30/20 18 12/05/2018 POWD powderIndications: BENEATH BILATERAL Pressure ulcer of BREAST/GROIN FOLDS ischium, left, stage IV BID UNTIL RESOLVED. (H) Pediatric 0 01/07/2019 Multivitamins-Fl (CHEWABLE MULTIVITE/FLUORIDE PO) warfarin (COUMADIN) 10 TAKE 13MG ON MONDAY 90 tablet 1 09/201701/07/2019 MG tabletIndications: AND MONDAY. TAKE jail current use of 10MG BY MOUTH ON ALL 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, OTHER DAYS OF THE Personal history of WEEKS. pulmonary embolism warfarin (COUMADIN) 3 MG TAKE 1 TABLET BY 90 tablet 0 05/3101/07/2019 tabletIndications: Long MOUTH EVERY DAY term current use of ALONG WITH 10MG FOR 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 TOTAL DOSE OF 13MG documented as of this encounter Progress Notes Mikhail Vital PA-C - 10/08/2018 1:13 PM CDT Images from the original note were not included. [facility] HISTORY OF PRESENT ILLNESS: Charlette Brush is a 73 year old female who returns today for a large surgical wound over her left IT. Ms. Brush fell back in October 2017 and was down for about three hours before she could get help. Sustained several pressure injuries, including over her left IT and buttocks. Developed secondary necrotizing fasciitis in the area requiring extensive OR debridement. Had an MRI in May 2018 that was negative for osteomyelitis. Her biggest barrier to healing is the location of this wound. She is unable to to apply the dressings herself and they continue to fall off with toileting and daily activities. At this point Dr. Biswas is not able to offer her any surgical options due to difficult location. INTERVAL HISTORY: ?? Had some success with absorbant polymer dressings such as Optilock if they are large enough to cover the area ?? Reports that she has had some success with the larger OptiLock and ABD pads if they are taped on just right ?? Continues to use HydroFera Blue for primary dressings NUTRITION: taking protein supplement OFFLOADING: has group 2 mattress and offloading gel wheelchair cushion DATE WOUND ACQUIRED: 10/2017 PAST MEDICAL HISTORY: has a past medical history of BENIGN HYPERTENSION (07/30/2003), benign positional vertigo (09/08/2004), Coagulation disorder (H), GERD (gastroesophageal reflux disease), CEFERINO (obstructive sleep apnea), Other lymphedema (11/04/2003), PULM EMBOLISM/INFARCT NOS (11/20/2001), Pulmonary embolism and infarction (H) (11/20/2001), and Rhabdomyolysis (10/19/2017). 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 acetaminophen (TYLENOL) 325 MG tablet ??? ascorbic acid (VITAMIN C) 500 MG tablet ??? atenolol (TENORMIN) 25 MG tablet ??? Calcium Carb-Cholecalciferol (CALCIUM + D3) 600-200 MG-UNIT TABS ??? cetirizine (ZYRTEC) 10 MG tablet ??? Cholecalciferol (VITAMIN D PO) ??? desoximetasone (TOPICORT) 0.05 % GEL ??? FEROSUL 325 (65 Fe) MG tablet ??? furosemide (LASIX) 40 MG tablet ??? hydrocortisone 2.5 % ointment ??? losartan (COZAAR) 50 MG tablet ??? nystatin (MYCOSTATIN) 816635 UNIT/GM external cream ??? nystatin (MYCOSTATIN) 329217 UNIT/GM external ointment ??? NYSTOP 993033 UNIT/GM POWD powder ??? Pediatric Multivitamins-Fl (CHEWABLE MULTIVITE/FLUORIDE PO) ??? warfarin (COUMADIN) 10 MG tablet ??? warfarin (COUMADIN) 3 MG tablet No current facility-administered medications for this encounter. VITALS: BP 148/74 (BP Location: Right arm) Pulse 94 Temp 99.7 ??F (37.6 ??C) (Temporal) Resp 18 PHYSICAL EXAM: GENERAL: Patient is alert and oriented and in no acute distress INTEGUMENTARY: Wound (used by OP [facility] only) 08/08/18 1325 Left ischial tuberosity pressure injury (Active) Length (cm) 3.5 10/08/2018 1:23 PM Width (cm) 9 10/08/2018 1:23 PM Depth (cm) 5.5 10/08/2018 1:23 PM Wound (cm^2) 31.5 cm^2 10/08/2018 1:23 PM Wound Volume (cm^3) 173.25 cm^3 10/08/2018 1:23 PM Wound healing % -12.5 10/08/2018 1:23 PM Dressing Appearance moist drainage 10/08/2018 1:23 PM Drainage Characteristics/Odor serosanguineous 10/08/2018 1:23 PM Drainage Amount moderate 10/08/2018 1:23 PM Thickness/Stage full thickness 10/08/2018 1:28 PM Base red/granulating 10/08/2018 1:28 PM Periwound intact 10/08/2018 1:28 PM Periwound Temperature warm 10/08/2018 1:28 PM Periwound Skin Turgor soft 10/08/2018 1:28 PM Care, Wound debrided 10/08/2018 1:28 PM PROCEDURE: 4% topical lidocaine was applied to the wound by the [facility]. Patient was determined to be capable of making their own medical decisions and informed consent was obtained. Using a sharp curette a surgical debridement was performed down to and including subcutaneous tissue of <20. Hemostasis was achieved with pressure. The patient tolerated the procedure well. 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 Continue HydroFera Blue + OptiLock + ABD pads FOLLOW-UP: 4 weeks MIKHAIL VITAL PA-C (DYKSTRA) documented in this encounter Plan of Treatment Upcoming Encounters Date Type Specialty Care Team Description 11/15/2022 Virtual Visit Haylie Wake[place], [facility] [address] [facility] [address] [place] [address] (Wo rk) 11/15/2022 Virtual Visit IM/PedYane Muir MD [address] [place] [address] (Wo rk) 03/03/2023 Virtual Visit Neurology Erlinda Barber MD [address] [facility] [address] [place], [place] [address] (Wo rk) documented as of this encounter Visit Diagnoses Diagnosis Pressure ulcer of ischium, left, stage I V (H) documented in this encounter Care Teams Environmental Attorney Relationship Specialty Start Date End Date Lucero Stevenson MD PCP - General Pediatrics 10/11/11 04/22/19 Chastity Montero MD MD Dermatology 09/23/14 [address] [facility] [address] [place], [place] [address] Johnnie Alcocer MD Surgeon General Surgery 03/23/17 [address] [facility] [address] [place], [place] [address] Lucero Stevenson MD Assigned PCP 06/17/18 11/09/19 [facility] [address] [place] [phone] documented as of this encounter
--- OUTSIDE RECORDS SUMMARY | 2022-06-15 13:08 | XMS_ITS | Encounter Summary ---
:1945 Author Organization [place] Address [address] [place] [address] Care Team Providers Name Role Phone Lucero Steevnson MD Primary Care Provider [phone] Chastity Montero MD Unavailable [phone] Johnnie Alcocer MD Unavailable Lucero Stevenson MD Unavailable [phone] Encounter Details Date Type Department Care Team Description 10/08/2018 Travel Social History Tobacco Use Types Packs/Day [...] Visit Haylie [place], [facility] [address] [facility] [place] [address] (Wo rk) 11/15/2022 Virtual Visit IM/Peds Yane Barraza MD [address] [facility] [address] [place] [id number] (Wo rk) 03/03/2023 Virtual Visit Neurology Erlinda Barber MD [address] [facility] [address] [place], [place] [address] (Wo rk) documented as of this encounter Visit Diagnoses Not on filedocumented in this encounter Care Teams Feed House Supervisor Relationship Specialty Start Date End Date Lucero Stevenson MD PCP - General Pediatrics 10/11/11 04/22/19 Chastity Montero MD MD Dermatology 09/23/14 [address] [facility] 98 [place], [place] [address] Johnnie Alcocer MD Surgeon General Surgery 03/23/17 [address] [facility] [facility] [address] [place] [address] Lucero Stevenson MD Assigned PCP 06/17/18 11/09/[address] [address] documented as of this encounter
--- OUTSIDE RECORDS SUMMARY | 2022-06-15 13:08 | XMS_ITS | Encounter Summary ---
:1945 Author Organization [place] Address [address] [facility] [place] [address] Care Team Providers Name Role Phone Lucero Stevenson MD Primary Care Provider [phone] Chastity Montero MD Unavailable [phone] Jhonnie Alcocer MD Unavailable Lucero Stevenson MD Unavailable Lucero Stevenson MD Unavailable Reason for Visit Reason Comments WOUND CARE Encounter Details Date Type Department Care Team Description 09/10/2018 Hospital Encounter [facility] Paulo Vital Pressure ulcer of Wound Clinic Oumou Munson PA-C ischium, left, [address] [facility] [address] IV (H) [address] [facility] [place], [place] [address] [id number] [place], [place] [address] Social History Tobacco Use Types Packs/Day Years [...] Sign Reading Time Taken Comments Blood Pressure 139/79 09/10/2018 1:29 PM FILM AND VIDEO EDITOR Pulse 87 09/10/2018 1:29 PM FILM AND VIDEO EDITOR Temperature 36.8 ??C (98.2 ??F) 09/10/2018 1:29 PM FILM AND VIDEO EDITOR Respiratory Rate - - Oxygen Saturation - - Inhaled Oxygen Concentration - - Weight - - Height - - Body Mass Index - - documented in this encounter Discharge Instructions Discharge InstructionsWMari goetz RN - 09/10/2018 2:44 PM CST Images from the original note were not included. [facility] [place] [address] [place], [place] [address], [facility] [id number] Appointment Nurse Advisors [phone] Charlette Brush 1945 [facility] Wound [...] sheet per dressing change Cover wound with abd pad or baby diapers to absorb drainage. Change dressing daily Repositioning: Bed: Reposition pt [...] up to the chair. Mikhail Vital PA-C. September 10, 2018 Signing Physician Barber Winn M.D. Call us at [phone] if you have any questions about your wounds, have redness or swelling aroundyour wound, have a fever of 101 or greater or if you have any other problems or concerns. We answer the phone Monday through Monday 8 am to 4 pm, please leave a message as we check the voicemail frequently throughout the day. Follow up with Provider - 4 weeks AND VIDEO EDITOR documented in this encounter Medications at Time [...] nystatin (MYCOSTATIN) Apply topically 0 8 09/11/2019 741840 UNIT/GM external daily as needed cream nystatin (MYCOSTATIN) Apply topically 2 30 g 1 019 01/07/2019 [id number] UNIT/GM external times daily ointmentIndications: Yeast infection of the skin NYSTOP 188631 UNIT/GM JOI TOPICALLY AA 60 g 11 05/30/20 18 12/05/2018 POWD powderIndications: BENEATH BILATERAL Pressure ulcer of BREAST/GROIN FOLDS ischium, left, stage IV BID UNTIL RESOLVED. (H) Pediatric 0 01/07/2019 Multivitamins-Fl (CHEWABLE MULTIVITE/FLUORIDE PO) warfarin (COUMADIN) 10 TAKE 13MG ON MONDAY 90 tablet 1 09/201701/07/2019 MG tabletIndications: AND MONDAY. TAKE laborer marine terminal current use of 10MG BY MOUTH ON ALL 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, OTHER DAYS OF THE Personal history of WEEKS. pulmonary embolism warfarin (COUMADIN) 3 MG TAKE 1 TABLET BY 90 tablet 0 05/3101/07/2019 tabletIndications: Long MOUTH EVERY DAY term current use of ALONG WITH 10MG FOR 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 TOTAL DOSE OF 13MG documented as of this encounter Progress Notes Mikhail Vital PA-C - 09/10/2018 1:30 PM CST [facility] HISTORY OF PRESENT ILLNESS: [...] fall off with toileting and daily activities. She met with Dr. Biswaswho was not able to offer her any surgical options due to difficult location. INTERVAL HISTORY: ?? Had some success with absorbant polymer dressings such as Optilock if they are large enough to cover the area ?? Utilizing HydroFera Blue for primary dressings NUTRITION: taking [...] SOCIAL HISTORY: at home with homecare and BEHAVIORAL INSTRUCTOR services MEDICATIONS: Current Outpatient Medications Medication ??? [...] (COZAAR) 50 MG tablet ??? nystatin (MYCOSTATIN) 141628 UNIT/GM external ointment ??? NYSTOP [id number] UNIT/GM POWD powder ??? Pediatric Multivitamins-Fl (CHEWABLE MULTIVITE/FLUORIDE PO) ??? warfarin (COUMADIN) 10 MG tablet ??? warfarin (COUMADIN) 3 MG tablet No current facility-administered medications for this encounter. VITALS: BP 139/79 (BP Location: Left arm) Pulse 87 Temp 98.2 ??F (36.8 ??C) (Temporal) PHYSICAL EXAM: GENERAL: Patient is alert and oriented and in no acute distress INTEGUMENTARY: Wound (used by OP [facility] only) 01/23/19 1325 Left ischial tuberosity pressure injury (Active) Length (cm) 4 09/10/2018 1:30 PM Width (cm) 7 09/10/2018 1:30 PM Depth (cm) 5.8 09/10/2018 1:30 PM Wound (cm^2) 28 cm^2 09/10/2018 1:30 PM Wound Volume (cm^3) 162.4 cm^3 09/10/2018 1:30 PM Dressing Appearance moist drainage 09/10/2018 1:30 PM Drainage Characteristics/Odor serosanguineous 09/10/2018 1:30 PM Drainage Amount moderate 09/10/2018 1:30 PM PROCEDURE: 4% topical lidocaine was applied to the wound by the POMOLOGIST. Patient was determined to be capable of [...] necrotizing fascitis PLAN: 1. Continue HydroFera Blue 2. Will try to get larger absorbant cover dressings (Eclypse contour) 3. Could use diapers as back up FOLLOW-UP: 2 weeks MIKHAIL VITAL PA-C (DYKSTRA) AND VIDEO EDITOR documented in this encounter Miscellaneous Notes Addendum Note - Mari Thurman RN - 09/10/2018 3:02 PM FILM AND VIDEO EDITOR Encounter addended by: Mari Thurman RN on: 09/10/2018 3:02 PM Actions taken: Plan of Care note modified AND VIDEO EDITOR documented in this encounter Plan of Treatment Upcoming Encounters Date Type Specialty Care Team Description 11/15/2022 Virtual Visit Haylie Wakefield, [facility] [address] [place] [address] (Wo rk) 11/15/2022 Virtual Visit IM/PedYane Muir MD [address] [facility] [place] [address] (Wo rk) 03/03/2023 Virtual Visit Neurology Erlinda Barber MD [address] [facility] [address] [place], [place] [address] (Wo rk) documented as of this encounter Visit Diagnoses Diagnosis Pressure ulcer of ischium, left, stage I V (H) documented in this encounter Care Teams Windows Server Support Technician Relationship Specialty Start Date End Date Lucero Stevenson MD PCP - General Pediatrics 10/11/11 04/22/19 Lucero Stevenson MD PCP - Assigned PCP 06/17/18 09/18/18 [facility] [address] [place] [id number] Chastity Montero MD MD Dermatology 09/23/14 [address] [facility] [address] [place], [place] [address] Johnnie Alcocer MD Surgeon General Surgery 03/23/17 [address] [facility] [address] [place], [place] [address] Lucero Stevenson MD Assigned PCP 06/17/18 11/09/[address] [id number] documented as of this encounter
--- OUTSIDE RECORDS SUMMARY | 2022-06-15 13:08 | XMS_ITS | Encounter Summary ---
:1945 Author Organization [place] Address [address] [place] [address] Care Team Providers Name Role Phone Lucero Stevenson MD Primary Care Provider [phone] Chastity Montero MD Unavailable [phone] Johnnie Alcocer MD Unavailable Lucero Stevenson MD Unavailable [phone] Lucero Stevenson MD Unavailable [phone] Encounter Details Date Type Department Care Team Description 08/24/2018 Anticoagulation Therapy [facility] snf current use of 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 (Primary Dx); Visit Clinic [place] Personal history of pulmonar y embolism [address] [facility] [address] [place] [address] Social [...] or slept in a snf (including now)? Sex Assigned at Date Recorded Female 12/24/2018 12:35 PM CDT documented as of this encounter Progress Notes Qing Guy RN - 08/24/2018 9:45 AM CST ANTICOAGULATION FOLLOW-UP Patient Name: Charlette Brush Date: 08/24/2018 Contact Type: Telephone Call received from [facility] nurse, with INR result. Follow up instructions given over the phone to Home Care nurse for warfarin management. SUBJECTIVE: Patient Findings Positives: No Problem Findings Comments: Maintenance dose decreased 3.9% (3mg/wk). Had been on fluconazole. May need to change it back to previous maintenance dose at next INR. OBJECTIVE INR Date Value Ref Range Status 08/24/2018 2.4 (A) 0.9 - 1.1 Final ASSESSMENT / PLAN INR assessment THER Recheck INR In: 1 WEEK INR Location Homecare INR Anticoagulation Summary As of 08/24/2018 INR goal: 2.0-3.0 TTR: 79.3 % (2.9 y) INR used for dosin.4 (08/24/2018) Warfarin maintenance plan: 13 mg (3 mg x 1 and 10 mg x 1) every Fri; 10 mg (10 mg x 1) all other days Full warfarin instructions: 13 mg every Fri; 10 mg all other days Weekly warfarin total: 73 mg Plan last modified: Qing Guy RN (08/24/2018) Next INR check: 08/30/2018 Target end date: Indefinite Indications 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 embolism [Z86.711] snf current use of 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 [Z79.01] Anticoagulation Episode Summary INR check location: [facility] Preferred lab: Send INR reminders to: [facility] Comments: 7.5mg, 3mg, 6mg & 10mg tabs - devaughn dose / [facility] FAHEEM Martinez [phone] / APPT CARD ONLY Anticoagulation Care Providers Provider Role Specialty Phone number Lucero Stevenson MD Internal Medicine [phone] See the Encounter Report to view Anticoagulation Flowsheet and Dosing Calendar (Go to Encounters tabin chart review, and find the Anticoagulation Therapy Visit) Dosage adjustment made based on physician directed care plan. Qnig Guy, RN POST PARTUM documented in this encounter Plan of Treatment Upcoming Encounters Date Type Specialty Care Team Description 11/15/2022 Virtual Visit Pharm Haylie Gonzalez, [facility] [address] [place] [address] (Wo rk) 11/15/2022 Virtual Visit IM/Peds Yane Barraza MD [address] [place] [address] (Wo rk) 03/03/2023 Virtual Visit Neurology Erlinda Barber MD [address] [facility] [address] [place] [address] (Wo rk) documented as of this encounter Procedures Procedure Name Priority Date/Time Associated Diagnosis Comme nts INR Routine 08/24/2018 9:50 AM Results f or this RN POST PARTUM procedure are i n the results section . 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 - Primary 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 embolism documented in this encounter Care Teams Presser First Relationship Specialty Start Date End Date Lucero Stevenson MD PCP - General Pediatrics 10/11/11 04/22/19 Lucero Stevenson MD PCP - Assigned PCP 06/17/18 09/18/[address] [id number] Chastity Montero MD MD Dermatology 09/23/14 [address] [facility] [address] [place], [place] [address] Johnnie Alcocer MD Surgeon General Surgery 03/23/17 [address] [facility] [address] [place], [place] [id number] Lucero Stevenson MD Assigned PCP 06/17/18 11/09/19 [facility] [address] [place] [address] documented as of this encounter
--- OUTSIDE RECORDS SUMMARY | 2022-06-15 13:08 | XMS_ITS | Encounter Summary ---
:1945 Author Organization [place] Address [address] [place] [address] Care Team Providers Name Role Phone Lucero Stevenson MD Primary Care Provider [phone] Chastity Montero MD Unavailable [phone] Johnnie Alcocer MD Unavailable Lucero Stevenson MD Unavailable [phone] Lucero Stevenson MD Unavailable [phone] Encounter Details Date Type Department Care Team Description 09/06/2018 Anticoagulation Therapy [facility] detention current use of 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 (Primary Dx); Visit Clinic [place] Personal history of pulmonar y embolism [address] [facility] [address] [place] [address] Social [...] slept in a senior care (including now)? Sex Assigned at Date Recorded Female 12/24/2018 12:35 PM CDT documented as of this encounter Progress Notes Qing Guy RN - 09/06/2018 4:30 PM CST ANTICOAGULATION FOLLOW-UP Patient Name: Charlette Brush Date: 09/06/2018 Contact Type: Telephone Call received from [facility] nurse, with INR result. Follow up instructions given over the phone to Home Care nurse for warfarin management. SUBJECTIVE: Patient Findings Positives: No Problem Findings OBJECTIVE INR Date Value Ref Range Status 09/06/2018 2.1 (A) 0.9 - 1.1 Final ASSESSMENT / PLAN INR assessment THER Recheck INR In: 2 WEEKS INR Location Homecare INR Anticoagulation Summary As of 09/06/2018 INR goal: 2.0-3.0 TTR: 79.6 % (2.9 y) INR used for dosin.1 (09/06/2018) Warfarin maintenance plan: 13 mg (3 mg x 1 and 10 mg x 1) every Fri; 10 mg (10 mg x 1) all other days Full warfarin instructions: 13 mg every Fri; 10 mg all other days Weekly warfarin total: 73 mg No change documented: Qing Guy RN Plan last modified: Qing Guy RN (08/24/2018) Next INR check: 09/20/2018 Target end date: Indefinite Indications 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 embolism [Z86.711] 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 [Z79.01] Anticoagulation Episode Summary INR check location: [facility] Clinic Preferred lab: Send INR reminders to: [facility] Comments: 7.5mg, 3mg, 6mg & 10mg tabs - devaughn dose / [facility] Michelle [phone] / APPT CARD ONLY Anticoagulation Care Providers Provider Role Specialty Phone number Lucero Stevenson MD Internal Medicine [phone] See the Encounter Report to view Anticoagulation Flowsheet and Dosing Calendar (Go to Encounters tabin chart review, and find the Anticoagulation Therapy Visit) Qing Guy RN MENT CONTROL COORDINATOR documented in this encounter Plan of Treatment Upcoming Encounters Date Type Specialty Care Team Description 11/15/2022 Virtual Visit Pharm D Haylie Cheung, [facility] [address] [facility] [place] [address] (Wo rk) 11/15/2022 Virtual Visit IM/Peds Yane Barraza MD [address] [facility] [place] [address] (Wo rk) 03/03/2023 Virtual Visit Neurology Erlinda Barber MD [address] [facility] [address] [place] [address] (Wo rk) documented as of this encounter Procedures Procedure Name Priority Date/Time Associated Diagnosis Comme nts INR Routine 09/06/2018 3:22 PM Results f or this DOCUMENT CONTROL COORDINATOR procedure are i n the results section . 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 - Primary 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 embolism documented in this encounter Care Teams Display Carver Relationship Specialty Start Date End Date Lucero Stevenson MD PCP - General Pediatrics 10/11/11 04/22/19 Lucero Stevenson MD PCP - Assigned PCP 06/17/18 09/18/18 [facility] [address] [place], [place] [phone] Chastity Montero MD MD Dermatology 09/23/14 [address] [facility] [address] [facility] [address] [place], [place] [address] Johnnie Alcocer MD Surgeon General Surgery 03/23/17 [address] [facility] [address] [place], [place] [address] Lucero Stevenson MD Assigned PCP 06/17/18 11/09/19 [facility] [address] [place] [address] documented as of this encounter
--- OUTSIDE RECORDS SUMMARY | 2022-06-15 13:08 | XMS_ITS | Encounter Summary ---
:1945 Author Organization [place] Address [address] [place] [address] Care Team Providers Name Role Phone Lucero Stevenson MD Primary Care Provider [phone] Chastity Montero MD Unavailable [phone] Johnnie Alcocer MD Unavailable Lucero Stevenson MD Unavailable [phone] Encounter Details Date Type Department Care Team Description 09/20/2018 Anticoagulation Therapy [facility] snf current use of 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 (Primary Dx); Visit Clinic [place] Personal history of pulmonar y embolism [address] [facility] [address] [place] [address] Social History [...] encounter Progress Notes Qing Guy RN - 09/20/2018 1:00 PM CST ANTICOAGULATION FOLLOW-UP Patient Name: Charlette Brush Date: 09/20/2018 Contact Type: Telephone Call received from [facility] nurse, with INR result. Follow up instructions given over the phone to Home Care nurse for warfarin management. SUBJECTIVE: Patient Findings Positives: No Problem Findings Comments: Per Homecare nurse: No bleeding or concerning bruises No medication changes OBJECTIVE INR Date Value Ref Range Status 09/20/2018 2.2 (A) 0.9 - 1.1 Final ASSESSMENT / PLAN INR assessment THER Recheck INR In: 2 WEEKS INR Location Homecare INR Anticoagulation Summary As of 09/20/2018 INR goal: 2.0-3.0 TTR: 79.9 % (3 y) INR used for dosin.2 (09/20/2018) Warfarin maintenance plan: 13 mg (3 mg x 1 and 10 mg x 1) every Fri; 10 mg (10 mg x 1) all other days Full warfarin instructions: 13 mg every Fri; 10 mg all other days Weekly warfarin total: 73 mg No change documented: Qing Guy RN Plan last modified: Qing Guy RN (08/24/2018) Next INR check: 10/04/2018 Target end date: Indefinite Indications 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 embolism [Z86.711] snf current use of 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 [Z79.01] Anticoagulation Episode Summary INR check location: Coumadin Clinic Preferred lab: Send INR reminders to: [facility] Comments: 7.5mg, 3mg, 6mg & 10mg tabs - devaughn dose / [facility] [phone] / APPT CARD ONLY Anticoagulation Care Providers Provider Role Specialty Phone number Lucero Stevenson MD Internal Medicine [phone] See the Encounter Report to view Anticoagulation Flowsheet and Dosing Calendar (Go to Encounters tabin chart review, and find the Anticoagulation Therapy Visit) Qing Guy RN ENT FINANCIAL COUNSELOR documented in this encounter Plan of Treatment Upcoming Encounters Date Type Specialty Care Team Description 11/15/2022 Virtual Visit Pharm D Haylie Cheung, [facility] [address] [facility] [place] [address] (Wo rk) 11/15/2022 Virtual Visit IM/Peds Yane Barraza MD [address] [facility] [place] [address] (Wo rk) 03/03/2023 Virtual Visit Neurology Erlinda Barber MD [address] [facility] [address] [place] [address] (Wo rk) documented as of this encounter Procedures Procedure Name Priority Date/Time Associated Diagnosis Comme nts INR Routine 09/20/2018 12:20 PM Results for this PATIENT FINANCIAL COUNSELOR procedure are i n the results section . 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 - Primary 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 embolism documented in this encounter Care Teams Tool And Die Machinist Relationship Specialty Start Date End Date Lucero Stevenson MD PCP - General Pediatrics 10/11/11 04/22/19 Chastity Montero MD MD Dermatology 09/23/14 [address] [facility] 98 [place] [address] Johnnie Alcocer MD Surgeon General Surgery 03/23/17 [address] [facility] [address] [place] [address] Lucero Stevenson MD Assigned PCP 06/17/18 11/09/19 [facility] [address] [place], [place] [id number] documented as of this encounter
--- OUTSIDE RECORDS SUMMARY | 2022-06-15 13:08 | XMS_ITS | Encounter Summary ---
:1945 Author Organization [place] Address [address] [place] [address] Care Team Providers Name Role Phone Lucero Stevenson MD Primary Care Provider [phone] Chastity Montero MD Unavailable [phone] Johnnie Alcocer MD Unavailable Lucero Stevenson MD Unavailable [phone] Encounter Details Date Type Department Care Team Description 11/08/2018 Anticoagulation Therapy [facility] current use of 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 (Primary Dx); Visit Clinic [place] Personal history of pulmonar y embolism [address] [facility] [address] [place] [address] Social [...] encounter Progress Notes Qing Guy RN - 11/08/2018 2:45 PM CDT ANTICOAGULATION FOLLOW-UP Patient Name: Charlette Brush Date: 11/08/2018 Contact Type: Telephone Call received from [facility] nurse, with INR result. Follow up instructions given over the phone to Home Care nurse for warfarin management. SUBJECTIVE: Patient Findings Comments: Per Homecare nurse: The patient was assessed for diet, medication, missed or extra doses, bruising or bleeding, with no problem findings. OBJECTIVE INR Date Value Ref Range Status 11/08/2018 2.5 (A) 0.9 - 1.1 Final ASSESSMENT / PLAN INR assessment THER Recheck INR In: 2 WEEKS INR Location Homecare INR Anticoagulation Summary As of 11/08/2018 INR goal: 2.0-3.0 TTR: 79.2 % (3.1 y) INR used for dosin.5 (11/08/2018) Warfarin maintenance plan: 13 mg (3 mg x 1 and 10 mg x 1) every Mon, Fri; 10 mg (10 mg x 1) all other days Full warfarin instructions: 13 mg every Mon, Fri; 10 mg all other days Weekly warfarin total: 76 mg No change documented: Qing Guy RN Plan last modified: Qing Guy RN (10/11/2018) Next INR check: 11/22/2018 Target end date: Indefinite Indications 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 embolism [Z86.711] 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 [Z79.01] Anticoagulation Episode Summary INR check location: Anticoagulation Clinic Preferred lab: Send INR reminders to: [facility]TICOAG CLINIC Comments: 7.5mg, 3mg, 6mg & 10mg tabs - devaughn dose / [facility] [phone] / APPT CARD ONLY Anticoagulation Care Providers Provider Role Specialty Phone number Lucero Stevenson MD Internal Medicine [phone] See the Encounter Report to view Anticoagulation Flowsheet and Dosing Calendar (Go to Encounters tabin chart review, and find the Anticoagulation Therapy Visit) Qing Guy RN documented in this encounter Plan of Treatment Upcoming Encounters Date Type Specialty Care Team Description 11/15/2022 Virtual Visit Pharm Haylie Gonzalez, [facility] [address] [place] [address] (Wo rk) 11/15/2022 Virtual Visit IM/Peds Yane Barraza MD [address] [facility] [address] (Wo rk) 03/03/2023 Virtual Visit Neurology Erlinda Barber MD [address] [facility] 295 [place] [address] (Wo rk) documented as of this encounter Procedures Procedure Name Priority Date/Time Associated Diagnosis Comme nts INR Routine 11/08/2018 1:10 PM Results f or this CDT procedure are i n the results section . documented in this encounter Results (ABNORMAL) INR (11/08/2018 1:10 PM CDT) P athologist Signature INR 2.5 (A) 0.9 - 1.1 [facility] Specimen (Source) Anatomical Collection Method Collection Time Re ceived Time Location / / Volume Laterality Blood specimen 11/08/2018 1:10 PM (specimen) CDT Lucero Stevenson MD LAB - BLOOD ORDERABLES Performing Organization Address City/State/ZIP Code Phon e Number 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
--- OUTSIDE RECORDS SUMMARY | 2022-06-15 13:08 | XMS_ITS | Encounter Summary ---
:1945 Author Organization [place] Address [address] [place] [address] Care Team Providers Name Role Phone Lucero Stevenson MD Primary Care Provider [phone] Chastity Montero MD Unavailable [phone] Johnnie Alcocer MD Unavailable Lucero Stevenson MD Unavailable [phone] Encounter Details Date Type Department Care Team Description 10/02/2018 Telephone [facility] Stefanie Stevenson Eagan MD [address] [place] [address] [address] [place] [address] [place] [address] [phone] Social History Tobacco Use Types Packs/Day Years [...] this encounter Miscellaneous Notes Telephone Encounter - Ashley Holcomb LPN - 10/03/2018 2:16 PM CDT Form signed and faxed. Ashley Holcomb LPN Telephone Encounter - Araceli Pemberton CMA - 10/03/2018 8:23 AM CDT Placed in dr. Tatum in basket Telephone Encounter - Lucero Stevenson MD - 10/03/2018 8:09 AM CDT Please give to a covering provider to sign as I am not in the office until next Monday. Lucero Stevenson MD Telephone Encounter - Araceli Pemberton CMA - 10/03/2018 7:51 AM CDT Form placed in pcp inbasket Telephone Encounter - Janie Diane - 10/02/2018 12:31 PM CDT Reason for Call: Form, our goal is to have forms completed with 72 hours, however, some forms may require a visit or additional information. Type of letter, form or note: The need for electricity from [employer]. Who is the form from?:From [employer] Where did the form come from: Patient or family brought in What clinic location was the form placed at?: [place] Where the form was placed: 's Box What number is listed as a contact on the form?: Patient #[phone] Additional comments: Please fill out form and fax to [phone]. Thanks! Call taken on 10/02/2018 at 12:32 PM by Janie Diane documented in this encounter Plan of Treatment Upcoming Encounters Date Type Specialty Care Team Description 11/15/2022 Virtual Visit Pharm D Haylie Cheung, [facility] [address] [place] [address] (Wo rk) 11/15/2022 Virtual Visit IM/Peds Yane Barraza MD [address] [facility] [place] [address] (Wo rk) 03/03/2023 Virtual Visit Neurology Erlinda Barber MD [address] [place] [facility] [address] [facility] [address] [place], [place] [address] (Wo rk) documented as of this encounter Visit Diagnoses Not on filedocumented in this encounter Care Teams Director [employer] Center Relationship Specialty Start Date End Date Lucero Stevenson MD PCP - General Pediatrics 10/11/11 04/22/19 Chastity Montero MD MD Dermatology 09/23/14 [address] [facility] 98 [place], [place] [address] Johnnie Alcocer MD Surgeon General Surgery 03/23/[address] [place], [place] [address] Lucero Stevenson MD Assigned PCP 06/17/18 11/09/19 [facility] [address] [place], [place] [id number] documented as of this encounter
--- OUTSIDE RECORDS SUMMARY | 2022-06-15 13:08 | XMS_ITS | Encounter Summary ---
:1945 Author Organization [place] Address [address] [place] [address] Care Team Providers Name Role Phone Lucero Stevenson MD Primary Care Provider [phone] Chastity Montero MD Unavailable [phone] Johnnie Alcocer MD Unavailable Lucero Stevenson MD Unavailable [phone] Encounter Details Date Type Department Care Team Description 10/11/2018 Anticoagulation Therapy [facility]FP current use of 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 (Primary Dx); Visit Clinic [place] Personal history of pulmonar y embolism [address] [facility] [address] [place] [address] Social [...] encounter Progress Notes Qing Guy RN - 10/11/2018 2:15 PM CDT ANTICOAGULATION FOLLOW-UP Patient Name: Charlette Brush Date: 10/11/2018 Contact Type: Telephone Call received from [facility] nurse, with INR result. Follow up instructions given over the phone to Home Care nurse for warfarin management. SUBJECTIVE: Patient Findings Comments: Per Homecare nurse: No missed or extra dose No bleeding or concerning bruises No illness No rash, arthritis flare or gout No diarrhea No medication changes No change in diet or eating habits No symptoms of a clot Maintenance dose increased by 4% to match dose from last week. 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 [Z79.01] Anticoagulation Episode Summary INR check location: Coumadin Clinic Preferred lab: Send INR reminders to: ANTICOAG CLINIC Comments: 7.5mg, 3mg, 6mg & 10mg tabs - devaughn dose / [facility] [phone] / APPT CARD ONLY Anticoagulation Care Providers Provider Role Specialty Phone number Lucero Stevenson MD Internal Medicine [phone] See the Encounter Report to view Anticoagulation Flowsheet and Dosing Calendar (Go to Encounters tabin chart review, and find the Anticoagulation Therapy Visit) Dosage adjustment made based on physician directed care plan. Qing Guy, RN documented in this encounter Plan of Treatment Upcoming Encounters Date Type Specialty Care Team Description 11/15/2022 Virtual Visit Pharm D Haylie Cheung, [facility] [address] [place] [address] (Wo rk) 11/15/2022 Virtual Visit IM/PedYane Muir MD [address] [facility] [place] [address] (Wo rk) 03/03/2023 Virtual Visit Neurology Erlinda Barber MD [address] [facility] 295 [place] [address] (Wo rk) documented as of this encounter Procedures Procedure Name Priority Date/Time Associated Diagnosis Comme nts INR Routine 10/11/2018 1:31 PM Results f or this CDT procedure are i n the results section . documented in this encounter Results (ABNORMAL) INR (10/11/2018 1:31 PM CDT) P athologist Signature INR 2.1 (A) 0.9 - 1.1 EXTERNAL LAB Specimen (Source) Anatomical Collection Method Collection Time Re ceived Time Location / / Volume Laterality Blood specimen 10/11/2018 1:31 PM (specimen) CDT Resulting Agency Comment [facility] Lucero Stevenson MD LAB - BLOOD ORDERABLES Performing Organization Address City/State/ZIP Code Phon e Number EXTERNAL LAB EXTERNAL LAB External Lab documented in this encounter Visit Diagnoses Diagnosis [facility]FP current use of anticoagulant t herapy - Primary 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 embolism documented in this encounter Care Teams Supply Specialist Relationship Specialty Start Date End Date Lucero Stevenson MD PCP - General Pediatrics 10/11/11 04/22/19 Chastity Montero MD MD Dermatology 09/23/14 [address] [facility] 98 [place] [address] Johnnie Alcocer MD Surgeon General Surgery 03/23/17 [address] [facility] [address] [place], [place] [address] Lucero Stevenson MD Assigned PCP 06/17/18 11/09/[address] [address] documented as of this encounter
--- OUTSIDE RECORDS SUMMARY | 2022-06-15 13:09 | XMS_ITS | Encounter Summary ---
:1945 Author Organization [place] Address [address] [place] [address] Care Team Providers Name Role Phone Lucero Stevenson MD Primary Care Provider [phone] Chastity Montero MD Unavailable [phone] Johnnie Alcocer MD Unavailable Janie Petersen RN Unavailable Unavailable Lucero Stevenson MD Unavailable [phone] Lucero Stevenson MD Unavailable [phone] Encounter Details Date Type Department Care Team Description 08/06/2018 [facility] Ruben Stevenson history of pulmonary embolism; Therapy Visit Clinic Yarelis Littlejohn, rn long term care current use of ant icoagulant therapy [address] [facility] [address] [facility] [address] [place], [place] [phone] [id number] Social History Tobacco Use Types Packs/Day Years [...] as of this encounter Progress Notes Bri Romo, CHANDLER - 08/06/2018 12:03 PM CST ANTICOAGULATION FOLLOW-UP CLINIC VISIT Patient Name: Charlette Brush Date: 08/06/2018 Contact Type: Telephone/ [facility] SUBJECTIVE: Patient Findings Positives: No Problem Findings Comments: Clinical assessment with Michelle from [facility] [phone] Noted they are looking at possibly starting diflucan once order received. Advised if starts to re-check INR 3-4 days after taking. OBJECTIVE INR Date Value Ref Range Status 08/06/2018 2.9 Final ASSESSMENT / PLAN INR assessment THER Recheck INR In: 3 WEEKS INR Location Homecare INR Anticoagulation Summary As of 08/06/2018 INR goal: 2.0-3.0 TTR: 80.0 % (2.9 y) INR used for dosin.9 (08/06/2018) Warfarin maintenance plan: 13 mg (3 mg x 1 and 10 mg x 1) every Mon, Fri; 10 mg (10 mg x 1) all other days Full warfarin instructions: 13 mg every Mon, Fri; 10 mg all other days Weekly warfarin total: 76 mg No change documented: Bri Romo, RN Plan last modified: Qing Guy RN (05/21/2018) Next INR check: 08/27/2018 Target end date: Indefinite Indications 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 Will continue weekly maintenance dose of 76 mg mg and follow up in3 weeks or sooner if there are any concerns or problems or if patient does start diflucan. Bri Solorzano RN OARD OPERATOR documented in this encounter Plan of Treatment Upcoming Encounters Date Type Specialty Care Team Description 11/15/2022 Virtual Visit Pharm Haylie Gonzalez, [facility] [address] [facility] [address] (Wo rk) 11/15/2022 Virtual Visit IM/Peds Yane Barraza MD [address] [place] [address] (Wo rk) 03/03/2023 Virtual Visit Neurology Erlinda Barber MD [address] [facility] [address] [place] [address] (Wo rk) documented as of this encounter Procedures Procedure Name Priority Date/Time Associated Diagnosis Comme nts INR Routine 08/06/2018 Results for thi s procedure are in the resu lts section. documented in this encounter Results INR (08/06/2018) P athologist Signature INR 2.9 EXTERNAL LAB Specimen (Source) Anatomical Location Collection Method / Collectio n Time Received Time / Laterality Volume Blood specimen 08/06/2018 (specimen) Resulting Agency Comment [facility] Patient Reported LAB - BLOOD ORDERABLES Performing Organization Address City/State/ZIP Code Phon e Number EXTERNAL LAB EXTERNAL LAB External Lab documented in this encounter Visit Diagnoses Diagnosis Personal history of pulmonary embolism rn long term care current use of anticoagulant t herapy documented in this encounter Care Teams Telecommunications Project Manager Relationship Specialty Start Date End Date Lucero Stevenson PCP - General Pediatrics 10/11/11 04/22/19 MD Annetta Lucero Stevenson PCP - Assigned PCP 06/17/1809/18 MD TOÑO Littlejohn [address] [place] [address] Chastity Montero MD Dermatology 09/23/14 [address] [facility] [address] [place], [place] [address] Johnnie Alcocer MD Surgeon General Surgery 03/23/17 [address] [facility] [address] [place], [place] [id number] Janie Petersen, CHANDLER Clinic Assistant Credit Manager Primary Care - CC 05/03/18 08/09/18 Lucero Stevenson Assigned PCP 06/17/18 11/09/19 MD TOÑO Littlejohn [address] [place], [place] [address] documented as of this encounter
--- OUTSIDE RECORDS SUMMARY | 2022-06-15 13:09 | XMS_ITS | Encounter Summary ---
:1945 Author Organization [place] Address [address] [place] [address] Care Team Providers Name Role Phone Lucero Stevenson MD Primary Care Provider [phone] Chastity Montero MD Unavailable [phone] Johnnie Alcocer MD Unavailable Janie Petersen RN Unavailable Unavailable Lucero Stevenson MD Unavailable [phone] Lucero Stevenson MD Unavailable Reason for Visit Reason Onset Date Comments Home Care/Hospice 07/02/2018 Orders Encounter Details Date Type Department Care Team Description [facility]/02[facility] 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 Julia. Bal eeg tech Nurse OON ENGAGEMENT PLANNING OPERATOR documented in this encounter Plan of Treatment Upcoming Encounters Date Type Specialty Care Team Description 11/15/2022 Virtual Visit Pharm D Haylie Cheung, [facility] [address] [facility] [place] [address] (Lena max) 11/15/2022 Virtual [place] [address] [place] [address] [place] [address] (Lena max) 03/03/2023 Virtual Visit Neurology Erlinda Barber MD [address] [facility] [address] [place] [address] (Wo rk) documented as of this encounter Visit Diagnoses Not on filedocumented in this encounter Care Teams Coffee Grinder Relationship Specialty Start Date End Date Lucero Stevenson PCP - General Pediatrics 10/11/11 04/22/19 MD Annetta Lucero Stevenson PCP - Assigned PCP 06/17/1809/18 MD TOÑO Littlejohn [address] [place] [address] Chastity Montero MD Dermatology 09/23/14 [address] [facility] [address] [place], [place] [address] Johnnie Alcocer MD Surgeon General Surgery 03/23/[address] [place], [place] [address] Janie Petersen, CHANDLER Clinic Physician'S Assistant Primary Care - CC 05/03/18 08/09/18 Lucero Stevenson Assigned PCP 06/17/18 11/09/19 MD TOÑO Littlejohn [address] [place] [address] documented as of this encounter
--- OUTSIDE RECORDS SUMMARY | 2022-06-15 13:09 | XMS_ITS | Encounter Summary ---
:1945 Author Organization [facility] Address [address] [place] [address] Care Team Providers Name Role Phone Lucero Stevenson MD Primary Care Provider [phone] Chastity Montero MD Unavailable [phone] Johnnie Alcocer MD Unavailable Lucero Stevenson MD Unavailable [phone] Lucero Stevenson MD Unavailable [phone] Encounter Details Date Type Department Care Team Description 08/20/2018 Anticoagulation Therapy [facility] Personal history of pulmonary embolism; Visit Clinic [place] intermodal customer service current use of ant icoagulant therapy [address] [facility] [address] [place] [...] encounter Progress Notes Krystyna Sharp, CHANDLER - 08/20/2018 2:45 PM CST ANTICOAGULATION FOLLOW-UP CLINIC VISIT Patient Name: Charlette Brush Date: 08/20/2018 Contact Type: Telephone Call received from [facility] nurse, Michelle, at [phone]. INR today is in range, no concerns from pt. Advised to continue maintenance dosing & recheck in 3 days to make sure INR has been stable. Pt was on fluconazole a week ago. SUBJECTIVE: Patient Findings Positives: No Problem Findings Comments: Denies bleeding/bruising or missed dose. OBJECTIVE INR Date Value Ref Range Status 08/20/2018 2.4 (A) 0.9 - 1.1 Final ASSESSMENT / PLAN INR assessment THER Recheck INR In: 3 DAYS INR Location Homecare INR Anticoagulation Summary As of 08/20/2018 INR goal: 2.0-3.0 TTR: 79.3 % (2.9 y) INR used for dosin.4 (08/20/2018) Warfarin maintenance plan: 13 mg (3 mg x 1 and 10 mg x 1) every Mon, Fri; 10 mg (10 mg x 1) all other days Full warfarin instructions: 08/20: 10 mg; Otherwise 13 mg every Mon, Fri; 10 mg all other days Weekly warfarin total: 76 mg Plan last modified: Qing Guy, CHANDLER (05/21/2018) Next INR check: 08/23/2018 Target end date: Indefinite Indications Personal history of pulmonary embolism [Z86.711] retirement current use of 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 [Z79.01] Anticoagulation Episode Summary INR check location: [facility] Preferred lab: Send INR reminders to: [facility] Comments: 7.5mg, 3mg, 6mg & 10mg tabs - devaughn dose / [facility] [place] - Michelle [phone] / APPT CARD ONLY Anticoagulation Care Providers Provider Role Specialty Phone number Lucero Stevenson MD Internal Medicine [phone] See the Encounter Report to view Anticoagulation Flowsheet and Dosing Calendar (Go to Encounters tabin chart review, and find the Anticoagulation Therapy Visit) Krystyna Sharp, RN ONAL SALES ASSOCIATE documented in this encounter Plan of Treatment Upcoming Encounters Date Type Specialty Care Team Description 11/15/2022 Virtual Visit Pharm Haylie Gonzalez, [facility] [address] [facility] [place] [address] (Wo rk) 11/15/2022 Virtual Visit IM/Peds Yane Barraza MD [address] [facility] [place] [address] (Wo rk) 03/03/2023 Virtual Visit Neurology Erlinda Barber MD [address] [facility] [address] [place] [address] (Wo rk) documented as of this encounter Procedures Procedure Name Priority Date/Time Associated Diagnosis Comme nts INR Routine 08/20/2018 Results for thi s procedure are in the resu lts section. documented in this encounter Results (ABNORMAL) INR (08/20/2018) P athologist Signature INR 2.4 (A) 0.9 - 1.1 EXTERNAL LAB Specimen (Source) Anatomical Location Collection Method / Collectio n Time Received Time / Laterality Volume Blood specimen 08/20/2018 (specimen) Resulting Agency Comment [facility] Lucero Stevenson MD LAB - BLOOD ORDERABLES Performing Organization Address City/State/ZIP Code Phon e Number EXTERNAL LAB EXTERNAL LAB External Lab documented in this encounter Visit Diagnoses Diagnosis Personal history of pulmonary embolism retirement current use of anticoagulant t herapy documented in this encounter Care Teams Covered Buckle Assembler Relationship Specialty Start Date End Date Lucero Stevenson MD PCP - General Pediatrics 10/11/11 04/22/19 Lucero Stevenson MD PCP - Assigned PCP 06/17/18 09/18/18 [facility] [address] [place] [address] Chastity Montero MD MD Dermatology 09/23/14 [address] [facility] [address] [place], [place] [address] Johnnie Alcocer MD Surgeon General Surgery 03/23/17 [address] [facility] [address] [place], [place] [id number] Lucero Stevenson MD Assigned PCP 06/17/18 11/09/19 [facility] [address] [place] [address] documented as of this encounter
--- OUTSIDE RECORDS SUMMARY | 2022-06-15 13:09 | XMS_ITS | Encounter Summary ---
:1945 Author Organization [facility] Address [address] [place] [address] Care Team Providers Name Role Phone Lucero Stevenson MD Primary Care Provider [phone] Chastity Montero MD Unavailable [phone] Johnnie Alcocer MD Unavailable Lucero Stevenson MD Unavailable [phone] Lucero Stevenson MD Unavailable [phone] Encounter Details Date Type Department Care Team Description 08/13/2018 Anticoagulation Therapy [facility] half-way current use of 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 (Primary Dx); Visit Clinic [place] Personal history of pulmonar y embolism [address] [facility] [address] [place] [address] Social [...] encounter Progress Notes Qing Guy RN - 08/13/2018 4:30 PM CST ANTICOAGULATION FOLLOW-UP Patient Name: Charlette Brush Date: 08/13/2018 Contact Type: Telephone Call received from [facility] nurse, with INR result. Follow up instructions given over the phone to Home Care nurse for warfarin management. SUBJECTIVE: Patient Findings Positives: Change in medications Comments: Per Homecare nurse: She was on diflucan , Mon, last week. Wound looks the same, but has less of an odor. Per micromedex: Severity: Major. Concurrent use of FLUCONAZOLE and WARFARIN may result in an increased risk of bleeding. - No extra dose - No bleeding or concerning bruises - No illness (cough, cold, bacterial or viral) - No rash, arthritis flare or gout - No change in diet or eating habits OBJECTIVE INR Date Value Ref Range Status 08/13/2018 4.4 (A) 0.9 - 1.1 Final ASSESSMENT / PLAN INR assessment SUPRA Recheck INR In: 3 DAYS INR Location Homecare INR Anticoagulation Summary As of 08/13/2018 INR goal: 2.0-3.0 TTR: 79.5 % (2.9 y) INR used for dosin.4! (08/13/2018) Warfarin maintenance plan: 13 mg (3 mg x 1 and 10 mg x 1) every Mon, Fri; 10 mg (10 mg x 1) all other days Full warfarin instructions: 08/13: 3 mg; Otherwise 13 mg every Mon, Fri; 10 mg all other days Weekly warfarin total: 76 mg Plan last modified: Qing Guy RN (05/21/2018) Next INR check: 08/16/2018 Target end date: Indefinite Indications Personal history of pulmonary embolism [Z86.711] half-way current use of 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 [Z79.01] Anticoagulation Episode Summary INR check location: [facility] Clinic Preferred lab: Send INR reminders to: [facility] Comments: 7.5mg, 3mg, 6mg & 10mg tabs - devaughn dose / [facility] MWF - Michelle [phone] / APPT CARD ONLY Anticoagulation Care Providers Provider Role Specialty Phone number Lucero Stevenson MD Internal Medicine [phone] See the Encounter Report to view Anticoagulation Flowsheet and Dosing Calendar (Go to Encounters tabin chart review, and find the Anticoagulation Therapy Visit) Dosage adjustment made based on physician directed care plan. Qing Guy, RN ROPATHIC DOCTOR documented in this encounter Plan of Treatment Upcoming Encounters Date Type Specialty Care Team Description 11/15/2022 Virtual Visit Pharm Haylie Gonzalez K sunday Rojas, [facility] [address] [facility] [place] [address] (Wo rk) 11/15/2022 Virtual Visit IM/Yane Mathias MD [address] [facility] [place] [address] (Wo rk) 03/03/2023 Virtual Visit Neurology Erlinda Barber MD [address] [facility] [address] [place] [address] (Wo rk) documented as of this encounter Procedures Procedure Name Priority Date/Time Associated Diagnosis Comme nts INR Routine 08/13/2018 1:02 PM Results f or this NATUROPATHIC DOCTOR procedure are i n the results section . documented in this encounter Results (ABNORMAL) INR (08/13/2018 1:02 PM NATUROPATHIC DOCTOR) P athologist Signature INR 4.4 (A) 0.9 - 1.1 EXTERNAL LAB Specimen (Source) Anatomical Collection Method Collection Time Re ceived Time Location / / Volume Laterality Blood specimen 08/13/2018 1:02 PM (specimen) NATUROPATHIC DOCTOR Resulting Agency Comment [facility] Lucero Stevenson MD LAB - BLOOD ORDERABLES Performing Organization Address City/State/ZIP Code Phon e Number EXTERNAL LAB EXTERNAL LAB External Lab documented in this encounter Visit Diagnoses Diagnosis half-way current use of anticoagulant t herapy - Primary Personal history of pulmonary embolism documented in this encounter Care Teams Makeup Artist Relationship Specialty Start Date End Date Lucero Stevenson MD PCP - General Pediatrics 10/11/11 04/22/19 Lucero Stevenson MD PCP - Assigned PCP 06/17/18 09/18/18 [facility] [address] [place], [place] [id number] Chastity Montero MD MD Dermatology 09/23/[address] [facility] [address] [place], [place] [address] Johnnie Alcocer MD Surgeon General Surgery 03/23/17 [address] [facility] [address] [place], [place] [address] Lucero Stevenson MD Assigned PCP 06/17/18 11/09/19 [facility] [address] [place] [id number] documented as of this encounter
--- OUTSIDE RECORDS SUMMARY | 2022-06-15 13:09 | XMS_ITS | Encounter Summary ---
:1945 Author Organization [facility] Address [address] [place] [address]. [place] [address] Care Team Providers Name Role Phone Lucero Stevenson MD Primary Care Provider [phone] Chastity Montero MD Unavailable [phone] Johnnie Alcocer MD Unavailable Janie Petersen RN Unavailable Unavailable Lucero Stevenson MD Unavailable [phone] Lucero Stevenson MD Unavailable [phone] Encounter Details Date Type Department Care Team Description 07/30/[address] [facility] Scan, REVISION TO PLAN OF Health Info Mgmt Non-Provider CARE [place] [address] [address] Social History Tobacco Use Types [...] or slept in a fdc (including now)? Sex Assigned at Date Recorded Female 12/24/2018 12:35 PM CDT documented as of this encounter Plan of Treatment Upcoming Encounters Date Type Specialty Care Team Description 11/15/2022 Virtual Visit Pharm Haylie Gonzalez, [facility] [address] [facility] [place] [address] (Wo rk) 11/15/2022 Virtual Visit IM/PedYane Muir MD [address] [facility] [address] (Wo rk) 03/03/2023 Virtual Visit Neurology Erlinda Barber MD [address] [facility] [address] [place] [address] (Wo rk) documented as of this encounter Visit Diagnoses Not on filedocumented in this encounter Care Teams Academic Department Chair Relationship Specialty Start Date End Date Lucero Stevenson PCP - General Pediatrics 10/11/11 04/22/19 MD Annetta Lucero Stevenson PCP - Assigned PCP 06/17/1809/18 MD [facility] [address] [place] [address] Chastity Montero MD Dermatology 09/23/[address] [place] [address] [address] [place] [address] Johnnie Alcocer MD Surgeon General Surgery 03/23/17 [address] [facility] [address] [place] [address] Janie Petersen, CHANDLER Clinic Process Mold Technician Primary Care - CC 05/03/18 08/09/18 Lucero Stevenson Assigned PCP 06/17/18 11/09/19 MD Annetta [facility] [address] [place] [address] documented as of this encounter
--- OUTSIDE RECORDS SUMMARY | 2022-06-15 13:09 | XMS_ITS | Encounter Summary ---
:1945 Author Organization [facility] Address [address] [place] [address] Care Team Providers Name Role Phone Lucero Stevenson MD Primary Care Provider [phone] Chastity Montero MD Unavailable [phone] Johnnie Alcocer MD Unavailable Janie Petersen RN Unavailable Unavailable Lucero Stevenson MD Unavailable [phone] Lucero Stevenson MD Unavailable [phone] Reason for Referral Specialty Diagnoses / Procedures Referred By Contact Refer red To Contact Lucero Stevenson MD [address] [address] Referral ID Status Reason Start Date Expiration Date Visits Requ ested Visits Authorized Scheduling Instructions ANTICOAGULATION CLINIC COLLABORATIVE LA ACTICE AGREEMENT The following represents a collaborative practice agreement among the physicians of the Clinic and staff of the Anticoagulat ion Clinic Service ([facility]) Physicians shall: 1. Refer patients requiring anticoagulat ion to a specialty service staffed by personnel of Pharmacy Services and super vised by Clinic physicians. 2. Respond to questions and referrals fr pharmacy staff regarding delinquent or difficult patients. 3. Inform the ACC staff when a new patie nt is [...] Initiate vitamin K therapy when sergio cated. ER SESSIONS DIRECTOR Reason for Visit Reason Comments Hypertension Encounter Details Date Type Department Care Team Description 08/01/2018 Office Visit [facility] Lucero Stevenson Pres sure ulcer of ischium, left, stage IV (H) (Primary Dx); Clinic Yarelis Littlejohn MD Benign paroxysmal positional vertigo, un specified laterality; [address] [facility] [address] Morbid obesity, unspecified obesity type (H); [address] [facility] Essential hypertension, josy gn; [address] Lymphedema of both lower extremities; [place] [address] [place] [address] Dermatitis; [phone] (Wo rk) 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 Social History Tobacco Use Types Packs/Day Years [...] Reading Time Taken Comments Blood Pressure 122/84 08/01/2018 1:39 PM SUMMER SESSIONS DIRECTOR Pulse 88 08/01/2018 1:39 PM SUMMER SESSIONS DIRECTOR Temperature - - Respiratory Rate - - Oxygen Saturation 99% 08/01/2018 1:39 PM SUMMER SESSIONS DIRECTOR Inhaled Oxygen Concentration - - Weight 154.5 kg (340 lb 11.2 oz) 08/01/2018 1:39 PM SUMMER SESSIONS DIRECTOR Height 167.6 cm (5' 6) 08/01/2018 1:39 PM SUMMER SESSIONS DIRECTOR Body Mass Index 54.99 08/01/2018 1:39 PM SUMMER SESSIONS DIRECTOR documented in this encounter Patient Instructions Patient InstructionsJoanna Ivey - 08/01/2018 1:00 PM CST Cut lasix in 1/2; if you notice you are swelling more then go back up. Try submitting paperwork to insurance again. Get in contact with lymph clinic and have them send me what I need to order. If the dizziness is becoming more prominent or getting nausea with it then let me know. As you are getting stronger continue to work on stairs. Remain on iron supplement. ER SESSIONS DIRECTOR documented in this encounter Progress Notes Lucero Stevenson MD - 08/01/2018 1:00 PM CST SUBJECTIVE: Charlette Brush is a 73 year old female who presents to clinic today for the following health issues: Hypertension Follow-up ?? Outpatient blood pressures are being checked at home. Results are sometimes in the 100s-60s but normally in the 120-130s /70s. ?? Low Salt Diet: low salt ?? Amount of exercise or physical activity: 4-5 days/week for an average of 15- 30 minutes ?? Problems taking medications regularly: No ?? Medication side effects: none ?? Diet: regular (no restrictions) Patient reports her ulcer is still healing but slower than she would like. Still following with wound care; has tried wound vac which did not help. Currently they are trying a new foam for about 1 week but is unable to cover the whole wound. States her pants are loop drier operator now with new foam. States she is taking lasix daily which causes urination over her bandage and doesn't stick as well. Patient is wondering about getting more coverage from insurance for lymphedema. States she hasn't submitted paperwork to insurance yet. Was discharged from lymph clinic about 1 week ago. Does not believe she was measured properly for her stockings. States she is getting dizzy occasionally when siting up or getting up during wound care. Notes in the past she would get dizziness (feels room is spinning) when lying down on the bed, change positions and go to get up. Is not going outside due to cold unless for appointments. States she is getting stronger. 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 States she is using [employer] for groceries and her neighbor will get her itemsshe asks for. Problem list and histories reviewed & adjusted, as indicated. Additional history: as documented Patient Active Problem List Diagnosis ??? Essential hypertension, benign ??? Morbid obesity (H) ??? CEFERINO (obstructive sleep apnea) ??? CARDIOVASCULAR SCREENING; LDL GOAL LESS THAN 130 ??? Dermatitis, stasis ??? Health Halfway ??? Binge eating ??? Eczema ??? Pre-diabetes ??? Vitamin D deficiency ??? 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 Pressure ulcer of ischium, left, stage IV (H) ??? Physical deconditioning ??? Lymphedema of both lower extremities ??? Personal history of pulmonary embolism Past Surgical History: Procedure Laterality Date ??? CHOLECYSTECTOMY, OPEN 1970 ??? COLONOSCOPY N/A 01/13/2015 Procedure: COLONOSCOPY; Surgeon: Jose Juan Castaneda MD; Location: [facility] OR ? ? TONSILLECTOMY & ADENOIDECTOMY Social History Tobacco Use ??? Smoking status: Never Smoker ??? Smokeless tobacco: Never Used Substance Use Topics ??? Alcohol use: No Family History Problem Relation Age of Onset ??? Hypertension Mother ??? Thyroid Disease Mother ??? Prostate Cancer Father ??? Skin Cancer Father skin cancer unknown ??? C.A.D. Paternal Grandmother ??? Hypertension Sister ??? Cerebrovascular Disease Maternal Grandmother age 62 ??? Breast Cancer Paternal Aunt x3 ??? Gastrointestinal Disease Brother irritable bowel ??? Gastrointestinal Disease Sister ciliac disease ??? Diabetes No family hx of ??? Cancer No family hx of No known family hx of skin cancer ??? Colon Cancer No family hx of Current Outpatient Medications Medication Sig Dispense Refill ??? acetaminophen (TYLENOL) 325 MG tablet Take 325 mg by mouth daily ??? ascorbic acid (VITAMIN C) 500 MG tablet Take 500 mg by mouth ??? atenolol (TENORMIN) 25 MG tablet Take 1 tablet (25 mg) by mouth 2 times daily 180 tablet 3 ??? Calcium Carb-Cholecalciferol (CALCIUM + D3) 600-200 MG-UNIT TABS ??? cetirizine (ZYRTEC) 10 MG tablet Take 10 mg by mouth 2 times daily ??? Cholecalciferol (VITAMIN D PO) Take 2,000 Units by mouth daily ??? desoximetasone (TOPICORT) 0.05 % GEL Apply topically 2 times daily as needed for inflammation oritching ??? furosemide (LASIX) 40 MG tablet Take 1 tablet (40 mg) by mouth daily 90 tablet 3 ??? hydrocortisone 2.5 % ointment Daily as needed 180 g 3 ??? losartan (COZAAR) 50 MG tablet Take 1 tablet (50 mg) by mouth daily 90 tablet 3 ??? NYSTOP [id number] UNIT/GM POWD powder JOI TOPICALLY AA BENEATH BILATERAL BREAST/GROIN FOLDS BID UNTIL RESOLVED. 60 g 11 ??? Pediatric Multivitamins-Fl (CHEWABLE MULTIVITE/FLUORIDE PO) ??? warfarin (COUMADIN) 10 MG tablet TAKE 13MG ON MONDAY AND MONDAY. TAKE 10MG BY MOUTH ON ALL OTHERDAYS OF THE WEEKS. 90 tablet 1 ??? warfarin (COUMADIN) 3 MG tablet TAKE 1 TABLET BY MOUTH EVERY DAY ALONG WITH 10MG FOR TOTAL DOSE OF 13MG 90 tablet 0 ??? FEROSUL 325 (65 Fe) MG tablet Take 1 tablet (325 mg) by mouth daily (with breakfast) 100 tablet 3 Allergies Allergen Reactions ??? Cephalexin Hives Keflex - hives ??? Lanolin Other (See Comments) skin irritation ??? Lisinopril Cough ??? Neomycin Other (See Comments) skin irritation ??? Penicillins Hives ??? Bactroban [Mupirocin Calcium] Rash BP Readings from Last 3 Encounters: 07/18/18 (!) 159/96 06/26/18 (!) 147/112 06/05/18 166/89 Wt Readings from Last 3 Encounters: 05/30/18 (!) 165.1 kg (364 lb) 05/16/18 (!) 165.3 kg (364 lb 6.7 oz) 05/07/18 (!) 165.3 kg (364 lb 6.4 oz) Labs reviewed in [facility] Reviewed and updated as needed this visit by clinical staff Reviewed and updated as needed this visit by Provider ROS: Constitutional, HEENT, cardiovascular, pulmonary, GI, , musculoskeletal, neuro, skin, endocrine and psych systems are negative, except as otherwise noted. This document serves as a record of the services and decisions personally performed and made by Lucero Stevenson MD. It was created on her behalf by Joanna Ivey, a trained medical screener. The creation of this document is based the provider's statements to the medical screener. Joanna Ivey August 01, 2018 1:27 PM OBJECTIVE: BP 122/84 (BP Location: Right arm, Patient Position: Sitting, Cuff Size: Adult Large) Pulse 88 Ht 1.676 m (5' 6) Wt (!) 154.5 kg (340 lb 11.2 oz) SpO2 99% BMI 54.99 kg/m?? Body mass index is 54.99 kg/m??. GENERAL: alert and no distress. Morbidly obese, able to ambulate a few steps. HENT: ear canals and TM's normal, nose and mouth without ulcers or lesions RESP: lungs clear to auscultation - no rales, rhonchi or wheezes CV: regular rate and rhythm, normal S1 S2, no S3 or S4, no murmur, click or rub, no peripheral edema ABDOMEN: soft, nontender, no hepatosplenomegaly, no masses and bowel sounds normal MS: no gross musculoskeletal defects noted, no edema PSYCH: mentation appears normal, affect normal/bright Diagnostic Test Results: No results found for this or any previous visit (from the past 24 hour(s)). ASSESSMENT/PLAN: (L89.324) Pressure ulcer of ischium, left, stage IV (H) (primary encounter diagnosis) -- followed by wound care clinic; currently stable -- advised to continue with physical therapy exercises and improving mobility -- will reassess with physical therapy and OT in the spring/summer when weather is better BPPV -discussed options for patient including vestibular rehab -as it is very difficult for patient to get into clinic and symptoms are brief and mild we elected to monitor for now. (E66.01) Morbid obesity, unspecified obesity type (H) -- advised to continue with physical therapy exercises to gain more strength and mobility -- recommended cutting out juice to help lower calories (I10) Essential hypertension, benign -- BP at goal; continue without changes (I89.0) Lymphedema of both lower extremities -- advised to contact lymphedema clinic again and submitting paperwork for lymphedema supplies to insurance again -- will reduce lasixs to 1/2 pill due to increase in urination effecting bandage sticking -- advised patient to increase back to regular dose if swelling increases (L30.9) Dermatitis -- currently controlled; continue without changes Plan: hydrocortisone 2.5 % ointment (Z79.01) 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 The information in this document, created by the medical screener for me, accurately reflects the services I personally performed and the decisions made by me. I have reviewed and approved this document for accuracy prior to leaving the patient care area. Lucero Stevenson MD [facility] [place] ER SESSIONS DIRECTOR documented in this encounter Plan of Treatment Upcoming Encounters Date Type Specialty Care Team Description 11/15/2022 Virtual Visit Pharm D Haylie Cheung, [facility] [address] [facility] [place] [address] (Wo rk) 11/15/2022 Virtual Visit IM/Peds Yane Barraza MD [address] [facility] [place] [address] (Wo rk) 03/03/2023 Virtual Visit Neurology Erlinda Barber MD [address] [facility] [address] [place] [address] (Wo rk) Scheduled Referrals Name Type Priority Associated Diagnoses Order S chedule INR CLINIC REFERRAL Referral Routine assisted current use of Ordered: 08/01/2018 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 documented as of this encounter Visit Diagnoses Diagnosis Pressure ulcer of ischium, left, stage I V (H) - Primary Benign paroxysmal positional vertigo, un specified laterality Morbid obesity, unspecified obesity type (H) Essential hypertension, benign Lymphedema of both lower extremities Dermatitis Contact dermatitis and other eczema, due to unspecified cause assisted current use of anticoagulant t herapy documented in this encounter Care Teams Mortgage Or Loan Underwriter Relationship Specialty Start Date End Date Lucero Stevenson PCP - General Pediatrics 10/11/11 04/22/19 MD Annetta Lucero Stevenson PCP - Assigned PCP 06/17/1809/18 MD Annetta [address] [id number] Chastity Montero MD Dermatology 09/23/14 [address] [facility] [address] [place], [place] [address] Johnnie Alcocer MD Surgeon General Surgery 03/23/17 [address] [place], [place] [id number] Nicola, Janie, RN Clinic Full Service Vending Driver Primary Care - CC 05/03/18 08/09/18 Lucero Stevenson Assigned PCP 06/17/18 11/09/19 MD TOÑO Littlejohn [place] [address] [place] [address] documented as of this encounter
--- OUTSIDE RECORDS SUMMARY | 2022-06-15 13:09 | XMS_ITS | Encounter Summary ---
:1945 Author Organization [facility] Address [address] [place] [address] Care Team Providers Name Role Phone Lucero Stevenson MD Primary Care Provider [phone] Chastity Montero MD Unavailable [phone] Johnnie Alcocer MD Unavailable Janie Petersen RN Unavailable Unavailable Lucero Stevenson MD Unavailable [phone] Lucero Stevenson MD Unavailable Reason for Visit Reason Comments WOUND CARE CLINIC Encounter Details Date Type Department Care Team Description 07/18/2018 Hospital Encounter [facility] Paulo Vital Pressure ulcer of Wound Clinic Oumou Munson PA-C ischium, left, [address] W[address] HEALING stage IV (H) [address] [place], [place] [address] [address] [place] [address] [phone] Social History Tobacco Use Types Packs/Day Years [...] 05/03/2021 organizations such as uatsdin groups, unions, fraiDiDiD or athletic groups, or school groups? How [...] Sign Reading Time Taken Comments Blood Pressure 159/96 07/18/2018 1:20 PM SMALL PRODUCTS ASSEMBLER Pulse 92 07/18/2018 1:20 PM SMALL PRODUCTS ASSEMBLER Temperature 36.6 ??C (97.8 ??F) 07/18/2018 1:20 PM SMALL PRODUCTS ASSEMBLER Respiratory Rate 18 07/18/2018 1:20 PM SMALL PRODUCTS ASSEMBLER Oxygen Saturation - - Inhaled Oxygen Concentration - - Weight - - Height - - Body Mass Index - - documented in this encounter Discharge Instructions Discharge InstructionsWMari goetz RN - 07/18/2018 1:43 PM CST Images from the original note were not included. [facility] [place] [address] [place] [address], [facility] [address] Appointment Nurse Advisors [phone] Charlette Brush 1945 [facility] Home Care ?? Wound Dressing Change:Left Ischial Tuberosity After cleansing with saline or wound cleanser, apply small amount of VASHE on gauze, lay into wound bed, let sit for 10 minutes, remove gauze (do not rinse) then apply dressing. Skin Care: Use Skin Prep to klever-wound skin for bridging and use tincture of benzoin around klever wound skin to aid in seal. NPWT using black foam and pressure set to 125mmHg continuous suction bridged to thigh. Change dressing MWF. Repositioning: ??? Bed: Reposition pt MINIMALLY every 1-2 hours in bed to relieve pressure and promote perfusion totissue. ??? Chair: When up to chair pt should not sit for longer than one hour total before either standing or returning to bed for at least 10 minutes, again to relieve pressure and promote perfusion to tissue. o Pt should also sit on a chair cushion when up to the chair. A diet high in protein is important for wound healing, we recommend getting 90 grams of protein per day. Taking protein shakes or bars are a good way to get extra protein in your diet. Good sources of protein: Pork 26g per 3 oz Whey protein powder - 24g per scoop (on average) Bengali yogurt - 23g per 8oz Chicken or [place] - 23g per 3oz Fish - 20-25g per 3oz Beef - 18-23g per 3oz [place] beans - 20g per cup Cottage cheese - 14g per 1/2 cup Lentils - 13g per 1/4 cup Beef jerky 13g per 1oz 2% milk - 8g per cup Peanut butter - 8g per 2 tablespoons Eggs - 6g per egg Mixed nuts - 6g per 2oz Mikhail Vital PA-C. July 18, 2018 Call us at [phone] if you have any questions about your wounds, have redness or swelling aroundyour wound, have a fever of 101 or greater or if you have any other problems or concerns. We answer the phone Monday through Monday 8 am to 4 pm, please leave a message as we check the voicemail frequently throughout the day. Follow up with Provider - 3 weeks L PRODUCTS ASSEMBLER documented in this encounter Medications at Time [...] anemia type furosemide (LASIX) 40 MG Take 1 tablet (40 90 tablet 3 05/1708/01/2018 tabletIndications: mg) by mouth daily Essential hypertension, benign hydrocortisone 2.5 % Daily as needed 180 g 3 03/27/2017 05/14/2019 ointmentIndications: Dermatitis losartan (COZAAR) 50 MG Take 1 tablet (50 90 tablet 3 05/3002/19/2019 tabletIndications: mg) by mouth daily Essential hypertension, benign nystatin (MYCOSTATIN) Apply topically 0 8 09/11/2019 [id number] UNIT/GM external daily as needed cream NYSTOP 516389 UNIT/GM JOI TOPICALLY AA 60 g 11 05/30/20 18 12/05/2018 POWD powderIndications: BENEATH BILATERAL Pressure ulcer of BREAST/GROIN FOLDS ischium, left, stage IV BID UNTIL RESOLVED. (H) omeprazole (PRILOSEC) 40 Take 1 capsule (40 30 capsule 0 05/201808/01/2018 MG capsuleIndications: mg) by mouth every Gastroesophageal reflux morning disease without esophagitis Pediatric 0 01/07/2019 Multivitamins-Fl (CHEWABLE MULTIVITE/FLUORIDE PO) triamcinolone (KENALOG) JOI TOPICALLY AA 30 g 11 201708/01/2018 0.1 % creamIndications: WITH DRESSING Pressure ulcer of CHANGES D. MIX WITH ischium, left, stage IV NYSTATIN CREAM. (H) warfarin (COUMADIN) 10 TAKE 13MG ON MONDAY 90 tablet 1 09/201701/07/2019 MG tabletIndications: AND MONDAY. TAKE moth exterminator current use of 10MG BY MOUTH ON ALL 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, OTHER DAYS OF THE Personal history of WEEKS. pulmonary embolism warfarin (COUMADIN) 3 MG TAKE 1 TABLET BY 90 tablet 0 05/3101/07/2019 tabletIndications: Long MOUTH EVERY DAY term current use of ALONG WITH 10MG FOR 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 TOTAL DOSE OF 13MG warfarin (COUMADIN) 6 MG Take 1 tablet (6 mg) 90 tablet 3 1 08/01/2018 tabletIndications: Long by mouth daily or as term current use of directed by INR 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, Clinic Pulmonary embolism and infarction (H) warfarin (COUMADIN) 7.5 She is not taking 50 tablet 1 05/0708/01/2018 MG tabletIndications: this size warfarin moth exterminator current use of at this time. 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 documented as of this encounter Progress Notes Mikhail Vital PA-C - 07/18/2018 8:48 PM CST Images from the original note were not included. [facility] HISTORY OF PRESENT ILLNESS: Charlette Brush is a 73 year old female who returns today for a large surgical wound over her left IT. Ms. Brush fell back in October and was down for about three doors beforeshe could get help. Sustained several pressure injuries, including over her left IT and buttocks. Developed secondary necrotizing fasciitis in the area requiring extensive OR debridement. Has had no further imaging/diagnostics since October. Recently discharged home after TCU and rehab facility. Wound care had been pretty basic, never used NPWT. 05/22/18 - MRI negative for osteomyelitis INTERVAL HISTORY: ?? Received VAC in the last week ?? 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 [...] ??? losartan (COZAAR) 50 MG tablet ??? NYSTOP [id number] UNIT/GM POWD powder ??? omeprazole (PRILOSEC) 40 MG capsule ??? Pediatric Multivitamins-Fl (CHEWABLE MULTIVITE/FLUORIDE PO) ??? triamcinolone (KENALOG) 0.1 % cream ??? warfarin (COUMADIN) 10 MG tablet ??? warfarin (COUMADIN) 3 MG tablet ??? warfarin (COUMADIN) 6 MG tablet ??? warfarin (COUMADIN) 7.5 MG tablet No current facility-administered medications for this encounter. VITALS: BP (!) 159/96 (BP Location: Right arm) Pulse 92 Temp 97.8 ??F (36.6 ??C) (Temporal) Resp 18 PHYSICAL EXAM: GENERAL: Patient is alert and oriented and in no acute distress INTEGUMENTARY: WOUND ASSESSMENT #1: ?? Location: left IT ?? Size: 4.0 cm x 10.5 cm with a depth of 7.0 cm ?? Drainage: copious amount of serosanguinous drainage ?? Wound description: granular with overlying slough PROCEDURE: 4% topical lidocaine was applied to the wound by the [facility]. Patient was determined to be capable of making their own medical decisions and informed consent was obtained. Using a sharp curette a surgical debridement was performed down to and including subcutaneous tissue of >20 cm2 but <40 cm2. Hemostasis was achieved with pressure. The patient tolerated the procedure well. 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 continue NPWT - recommended trying alternative drape, using Eakins to maintain seal, gave tincture to try 2. Continue protein supplement 3. Patient is managing moisture and incontinence. Patient's nutritional status shows that Patient iseating properly to promote wound healing. Patient is maintaining a moist wound environment for healing. Patient is on a group two mattress and is repositioning frequently to promote wound healing. FOLLOW-UP: 3 weeks MIKHAIL VITAL PA-C (DYKSTRA) L PRODUCTS ASSEMBLER documented in this encounter Miscellaneous Notes Addendum Note - Mikhail Vital PA-C - 07/18/2018 11:59 PM SMALL PRODUCTS ASSEMBLER Encounter addended by: Mikhail Vital PA-C on: 07/23/2018 3:50 PM Actions taken: Sign clinical note L PRODUCTS ASSEMBLER documented in this encounter Plan of Treatment Upcoming Encounters Date Type Specialty Care Team Description 11/15/2022 Virtual Visit Pharm Haylie Gonzalez, [facility] [address] [place] [address] [place] [phone] (Wo rk) 11/15/2022 Virtual Visit IM/Peds Yane Barraza MD [address] [facility] [place] [phone] (Wo rk) 03/03/2023 Virtual Visit Neurology Erlinda Barber MD [address] [facility] [address] [place], [place] [phone] (Wo rk) documented as of this encounter Visit Diagnoses Diagnosis Pressure ulcer of ischium, left, stage I V (H) documented in this encounter Care Teams Radio Message Router Relationship Specialty Start Date End Date Lucero Stevenson PCP - General Pediatrics 10/11/11 04/22/19 MD Annetta Lucero Stevenson PCP - Assigned PCP 06/17/1809/18 MD TOÑO [facility] [address] [facility] [place] [phone] Chastity Montero MD Dermatology 09/23/14 [address] [facility] [address] [place], [place] [address] Johnnie Alcocer MD Surgeon General Surgery 03/23/17 [address] [facility] [address] [place], [place] [phone] Janie Petersen, CHANDLER Clinic Histology Specialist Primary Care - CC 05/03/18 08/09/18 Lucero Stevenson Assigned PCP 06/17/18 11/09/19 MD [facility] [address] [address] documented as of this encounter
--- OUTSIDE RECORDS SUMMARY | 2022-06-15 13:09 | XMS_ITS | Encounter Summary ---
:1945 Author Organization [facility] Address [address] [place] [address] Care Team Providers Name Role Phone Lucero Stevenson MD Primary Care Provider [phone] Chastity Montero MD Unavailable [phone] Johnnie Alcocer MD Unavailable Janie Petersen RN Unavailable Unavailable Lucero Stevenson MD Unavailable [phone] Lucero Stevenson MD Unavailable [phone] Encounter Details Date Type Department Care Team Description 08/08/2018 Travel Social History Tobacco Use Types Packs/Day [...] Haylie Cheung, [facility] [address] [facility] [place] [address] (Wo rk) 11/15/2022 Virtual Visit IM/Peds Yane Barraza MD [address] [facility] [place] [phone] (Wo rk) 03/03/2023 Virtual Visit Neurology Erlinda Barber MD [address] [facility] [address] [place] [address] (Wo rk) documented as of this encounter Visit Diagnoses Not on filedocumented in this encounter Care Teams Blooming Mill Supervisor Relationship Specialty Start Date End Date Lucero Stevenson PCP - General Pediatrics 10/11/11 04/22/19 MD Annetta Lucero Stevenson PCP - Assigned PCP 06/17/1809/18 MD TOÑO Littlejohn JESSICA [address] [place], [place] [phone] Chastity Montero MD Dermatology 09/23/14 [address] [facility] 98 [place], [place] [address] Johnnie Alcocer MD Surgeon General Surgery 03/23/[address] [place], [place] [address] Janie Petersen, CHANDLER Clinic Asset Analyst Primary Care - CC 05/03/18 08/09/18 Lucero Stevenson Assigned PCP 06/17/18 11/09/19 MD TOÑO Littlejohn [address] [place], [place] [phone] documented as of this encounter
--- OUTSIDE RECORDS SUMMARY | 2022-06-15 13:09 | XMS_ITS | Encounter Summary ---
:1945 Author Organization [employer] Address [address] [place] [address] Care Team Providers Name Role Phone Lucero Stevenson MD Primary Care Provider [phone] Chastity Montero MD Unavailable [phone] Johnnie Alcocer MD Unavailable Janie Petersen RN Unavailable Unavailable Lucero Stevenson MD Unavailable [phone] Lucero Stevenson MD Unavailable Reason for Visit Reason Onset Date Comments Medication Request 08/03/2018 Encounter Details Date Type Department Care Team Description 08/03/2018 Telephone [facility] Luceor Stevenson cation Request Clinic Yarelis Littlejohn MD [address] [place] [address] [place] [address] [phone] Social History Tobacco Use Types Packs/Day Years [...] encounter Miscellaneous Notes Telephone Encounter - Sumi Vinson RN - 08/03/2018 4:56 PM CST Called Kristine-(home care nurse)-no answer. Left a detailed message on her voicemail with 's response. Sumi Vinson RN ICAL MATERIAL HANDLER Telephone Encounter - Lucero Stevenson MD - 08/03/2018 4:34 PM CLINICAL MATERIAL HANDLER Script sent for nystatin. Lucero Stevenson MD ICAL MATERIAL HANDLER Telephone Encounter - Krystyna Sharp RN - 08/03/2018 2:50 PM CLINICAL MATERIAL HANDLER Call received from [facility] nurse, Kristine with update. She noted mild foul odor, serosanguinousdischarge around her buttocks with moderate itching present Looks like yeast inf, requesting appropriate med to help with the sx's. Please advise. Need to notify HC nurse at [phone] with MD's advise. Thanks. CHANDLER White Triage Nurse ICAL MATERIAL HANDLER Telephone Encounter - Bri Romo RN - 08/03/2018 1:43 PM CLINICAL MATERIAL HANDLER Patient calling to note that home care nurse was there from [facility] doing a wound assessment and told patient that she was going to call about a prescription for yeast infection. Patient advised no notes seen from Home care. Patient has number for home care and she will follow up there to have the nurse contact us to report her clinical assessment and medication need to us. Will await call from wound nurse. Bri Cornelius RN - Triage [facility] ICAL MATERIAL HANDLER Telephone Encounter - Haylie Saini - 08/03/2018 1:24 PM CST Reason for call: Other Patient called regarding (reason for call): prescription Additional comments: Patient states that her nurse was going to request an order for medication due to a skin infection. No note from home nurse. Please call to discuss. Phone number to reach patient: Other phone number: [phone] Best Time: any Can we leave a detailed message on this number? YES [phone] ICAL MATERIAL HANDLER documented in this encounter Plan of Treatment Upcoming Encounters Date Type Specialty Care Team Description 11/15/2022 Virtual Visit Pharm Haylie Gonzalez, [facility] [address] [place] [id number] (Wo rk) 11/15/2022 Virtual Visit IM/Peds Yane Barraza MD [address] [facility] [place] [id number] (Wo rk) 03/03/2023 Virtual Visit Neurology Erlinda Barber MD 420 [facility] 295 [place], [place] [address] (Wo rk) documented as of this encounter Visit Diagnoses Diagnosis Yeast infection of the skin - Primary Candidiasis of skin and nails documented in this encounter Care Teams International Coordinator Relationship Specialty Start Date End Date Lucero Stevenson PCP - General Pediatrics 10/11/11 04/22/19 MD Annetta Lucero Stevenson PCP - Assigned PCP 06/17/1809/18 MD TOÑO Littlejohn [address] [place], [place] [phone] Chastity Montero MD Dermatology 09/23/14 420 [facility] 98 [place], [place] [address] Johnnie Alcocer MD Surgeon General Surgery 03/23/17 [address] [facility] 300 [place], [place] [phone] Janie Petersen, CHANDLER Clinic Chief Investment Officer Primary Care - CC 05/03/18 08/09/18 Lucero Stevenson Assigned PCP 06/17/18 11/09/19 MD Annetta [facility] [address] [place], [place] [phone] documented as of this encounter
--- OUTSIDE RECORDS SUMMARY | 2022-06-15 13:09 | XMS_ITS | Encounter Summary ---
:1945 Author Organization [place] Address [facility] [place] [address] Care Team Providers Name Role Phone Lucero Stevenson MD Primary Care Provider [phone] Chastity Montero MD Unavailable [phone] Johnnie Alcocer MD Unavailable Janie Petersen RN Unavailable Unavailable Lucreo Stevenson MD Unavailable Lucero Stevenson MD Unavailable [phone] Encounter Details Date Type Department Care Team Description 07/03/2018 Orders Only [facility] Lucero Stevenson NOSIS NOT YET Clinic Yarelis Littlejohn MD DEFINED (Primary Dx) [address] [facility] [address] [facility] [address] [place] [address] [place] [address] [phone] Social History Tobacco Use Types Packs/Day Years [...] [facility]IN [facility] [address] [facility] [place] [address] (Wo rk) 11/15/2022 Virtual Visit IM/Peds Yane Barraza MD [address] [facility] [place] [address] (Wo rk) 03/03/2023 Virtual Visit Neurology Erlinda Barber MD 420 [facility] 295 [place] [address] (Wo rk) documented as of this encounter Procedures Procedure Name Priority Date/Time Associated Diagnosis Comme [facility] RECERTIFICATION SANDFILL OPERATOR SURFACE PT Routine 07/03/2018 DIAGNOSIS N OT YET DEFINED documented in this encounter Results RECERTIFICATION SANDFILL OPERATOR SURFACE PT (07/03/2018) Narrative This result has an attachment that is no t available. Lucero Stevenson MD SPECIAL REPORTS documented in this encounter Visit Diagnoses Diagnosis DIAGNOSIS NOT YET DEFINED - Primary documented in this encounter Care Teams Plastic Injection Mold Maker Relationship Specialty Start Date End Date Lucero Stevenson PCP - General Pediatrics 10/11/11 04/22/19 MD Annetta Lucero Stevenson PCP - Assigned PCP 06/17/1809/18 MD TOÑO Littlejohn [facility] [address] [place], [place] [phone] Chastity Montero MD Dermatology 09/23/14 [address] [facility] 98 [place] [address] Johnnie Alcocer MD Surgeon General Surgery 03/23/17 [address] [facility] 300 [place], [place] [address] Janie Petersen, CHANDLER Clinic Summer Intern Primary Care - CC 05/03/18 08/09/18 Lucero Stevenson Assigned PCP 06/17/18 11/09/19 MD Annetta [facility] [address] [place], [place] [phone] documented as of this encounter
--- OUTSIDE RECORDS SUMMARY | 2022-06-15 13:09 | XMS_ITS | Encounter Summary ---
:1945 Author Organization [place] Address [address] [place] [address] Care Team Providers Name Role Phone Lucero Stevenson MD Primary Care Provider [phone] Chastity Montero MD Unavailable [phone] Johnnie Alcocer MD Unavailable Janie Petersen RN Unavailable Unavailable Lucero Stevenson MD Unavailable [phone] Lucero Stevenson MD Unavailable [phone] Danni Marcus RN Unavailable Unavailable Tico Kana TICKER INSTALLER Unavailable Mtm, Ea Complex Unavailable Unavailable Svetlana Osman [facility] Unavailable [phone] Doris Lai MD Primary Care Provider Haylie Cheung [facility] Unavailable [phone] Galdino Valdez MD Unavailable Galdino Valdez MD Primary Care Provider Jaiden Holcomb MD Primary Care Provider [phone] Lucero Stevenson MD Primary Care Provider [phone] Doris Lai MD Primary Care Provider Reason for Visit Reason Onset Date Comments Call Back 08/06/2018 Call nurse back Encounter Details Date Type Department Care Team Description 08/06/2018 [facility]phone [facility] Lucero Call Back (Call nurse Clinic Yarelis Littlejohn MD back) [address] [facility] [facility] [address] [place] [address] [place] [address] [phone] Social History Tobacco Use Types Packs/Day Years [...] or slept in a halfway (including now)? Sex Assigned at Date Recorded Female 12/24/2018 12:35 PM CDT documented as of this encounter Miscellaneous Notes Telephone Encounter - Araceli Pemberton CMA - 08/07/2018 11:46 AM CAR REPOSSESSOR Called and relayed message to pt REPOSSESSOR Telephone Encounter - Lucero Stevenson MD - 08/06/2018 5:59 PM CAR REPOSSESSOR Script sent. Lucero Stevenson MD REPOSSESSOR Telephone Encounter - Danni Marcus RN - 08/06/2018 1:00 PM CST I spoke with Michelle. Wound evaluation was done last week, and wound care nurse would like an RX for Diflucan. Studies have shown that oral Diflucan for 3 days would work better than topical treatment. Order pended for 3 day course of daily Diflucan, please sign if in agreement. Call patient if RX is approved. Also requesting skilled nurse visits 7 days/week for 3 weeks beginning on 08/04/18. Verbal approval given for this order per protocol. Ashli Marcus RN REPOSSESSOR Telephone Encounter - Nicole Velazco - 08/06/2018 11:55 AM CST Reason for call: Other Patient called regarding (reason for call): call back Additional comments: Call Michelle back from [facility] regarding needing orders for patient and also a question about her medications. Please call her back. Other phone number: [phone] Best Time: Filiberto Can we leave a detailed message on this number? YES REPOSSESSOR documented in this encounter Plan of Treatment Upcoming Encounters Date Type Specialty Care Team Description 11/15/2022 Virtual Visit Pharm D Haylie Cheung, [facility] [address] [facility] [place] [address] (Wo rk) 11/15/2022 Virtual Visit [place] [address] [place] [address] [place] [phone] (Wo rk) 03/03/2023 Virtual Visit Neurology Erlinda Barber MD 420 [facility] 295 [place], [place] [address] (Wo rk) documented as of this encounter Visit Diagnoses Diagnosis Yeast infection of the skin - Primary Candidiasis of skin and nails documented in this encounter Care Teams Dial Maker Relationship Specialty Start Date End Date Lucero Stevenson PCP - General Pediatrics 10/11/11 04/22/19 MD Annetta Lucero Stevenson PCP - Assigned PCP 06/17/1809/18 MD TOÑO Littlejohn [address] [place] [address] Doris Lai MD PCP - General Internal Medicine 04/23/19 05/14/[address] [place] [address] [address] [place] [phone] Galdino Valdez MD PCP - General Family Practice 11/29/19 02/12/20 [address] [place], [place] [phone] Jaiden Holcomb PCP - General Internal Medicine 02/13/2010/03 MD Jayesh [address] [place] [address] [place] [address] Lucero Stevenson PCP - General 05/15/19 05/23/19 MD TOÑO Littlejohn [address] [place] [address] Doris Lai MD PCP - General 05/24/19 11/28/[address] [place] [address] [place] [address] Chastity Montero MD Dermatology 09/23/14 MD Martha 420 [facility] 98 [place], [place] [address] Johnnie Alcocer MD Surgeon General Surgery 03/23/17 [address] [facility] 300 [place], [place] [phone] Janie Petersen, CHANDLER Clinic Ground Support Equipment Mechanic Primary Care - CC 05/03/18 08/09/18 Lucero Stevenson Assigned PCP 06/17/18 11/09/19 MD TOÑO Littlejohn [address] [place], [place] [phone] Danni Marcus, RN Personal Advocate & 01/09/1901/17 Liaison (PAL) Kana Doshi TICKER INSTALLER Clinic Ground Support Equipment Mechanic Primary Care - CC 03/19/19 Mtm, Ea Complex 04/23/19 Svetlana Osman Pharmacist Pharmacotherapy 04/23/19 Era, [facility] [address] [place] [address] Haylie Cheung, Pharmacist Pharmacist 09/11/19 [facility] [address] [place] [address] Galdino Valdez MD Assigned PCP 11/10/19 05/23/20 [address] [place], [place] [phone] documented as of this encounter
--- OUTSIDE RECORDS SUMMARY | 2022-06-15 13:09 | XMS_ITS | Encounter Summary ---
:1945 Author Organization [facility] Address [address] [place] [address] Care Team Providers Name Role Phone Lucero Stevenson MD Primary Care Provider [phone] Chastity Montero MD Unavailable [phone] Johnnie Alcocer MD Unavailable Janie Petersen RN Unavailable Unavailable Lucero Stevenson MD Unavailable [phone] Lucero Stevenson MD Unavailable [phone] Reason for Visit Reason Comments WOUND CARE Encounter Details Date Type Department Care Team Description 08/08/2018 Hospital Encounter [facility] Paulo Mccall Pressure ulcer of Wound Clinic Oumou Munson PA-C ischium, left, [address] WOUND HEALING stage IV (H) [address] [place], [place] [address] [address] [place], [place] [address] Social History Tobacco Use Types Packs/Day Years [...] 05/03/2021 organizations such as bahai groups, unions, fra2threads or athletic groups, or school groups? How [...] Sign Reading Time Taken Comments Blood Pressure 161/89 08/08/2018 1:24 PM FINANCIAL ASSISTANCE SPECIALIST Pulse 90 08/08/2018 1:24 PM FINANCIAL ASSISTANCE SPECIALIST Temperature 36.6 ??C (97.8 ??F) 08/08/2018 1:24 PM FINANCIAL ASSISTANCE SPECIALIST Respiratory Rate - - Oxygen Saturation - - Inhaled Oxygen Concentration - - Weight - - Height - - Body Mass Index - - documented in this encounter Discharge Instructions Discharge InstructionsWMari goetz RN - 08/08/2018 3:57 PM CST Images from the original note were not included. [facility]OUND [facility] [place] [address] [place] [address] Appointment Nurse Advisors [phone] Charlette Brush 1945 [facility] ?? Wound Dressing Change:Left Ischial Tuberosity After cleansing with saline or wound cleanser, apply small amount of VASHE on gauze, lay into wound bed, let sit for 10 minutes, remove gauze (do not rinse) then apply dressing. Skin Care: Apply moisturizing cream to skin surrounding the wound (but not in the wound):critic aid Cover wound with Silvercel cut to fit the size of the wound Cover wound with abd pad secure with Tegaderm adhesive film Change dressing daily. Repositioning: ??? Bed: Reposition pt MINIMALLY every [...] chair cushion when up to the chair. Nuvia Mccall PA-C. August 08, 2018 Call us at [phone] if you have any questions about your wounds, have redness or swelling aroundyour wound, have a fever of 101 or greater or if you have any other problems or concerns. We answer the phone Monday through Monday 8 am to 4 pm, please leave a message as we check the voicemail frequently throughout the day. Follow up with Provider - for possible surgical procedure to close NCIAL ASSISTANCE SPECIALIST documented in this encounter Medications at Time [...] nystatin (MYCOSTATIN) Apply topically 0 8 09/11/2019 680746 UNIT/GM external daily as needed cream nystatin (MYCOSTATIN) Apply topically 2 30 g 1 2 019 01/07/2019 781004 UNIT/GM external times daily ointmentIndications: Yeast infection of the skin NYSTOP 646704 UNIT/GM JOI TOPICALLY AA 60 g 11 05/30/20 18 12/05/2018 POWD powderIndications: BENEATH BILATERAL Pressure ulcer of BREAST/GROIN FOLDS ischium, left, stage IV BID UNTIL RESOLVED. (H) Pediatric 0 01/07/2019 Multivitamins-Fl (CHEWABLE MULTIVITE/FLUORIDE PO) warfarin (COUMADIN) 10 TAKE 13MG ON MONDAY 90 tablet 1 09/201701/07/2019 MG tabletIndications: AND MONDAY. TAKE technician terminal and repeater current use of 10MG BY MOUTH ON ALL 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, OTHER DAYS OF THE Personal history of WEEKS. pulmonary embolism warfarin (COUMADIN) 3 MG TAKE 1 TABLET BY 90 tablet 0 05/3101/07/2019 tabletIndications: Long MOUTH EVERY DAY term current use of ALONG WITH 10MG FOR 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 TOTAL DOSE OF 13MG documented as of this encounter Progress Notes Nuvia Mccall PA-C - 08/08/2018 11:59 PM CST Images from the original note were not included. [facility] HISTORY OF PRESENT ILLNESS: [...] had been pretty basic, never used NPWT. 11/6/18 - MRI negative for osteomyelitis INTERVAL HISTORY: ?? VAC would not hold a seal ?? Has been attempting SilverCel + Enluxtra, but becomes dislodged frequently throughout the day, ifshe can stick it back down she does but otherwise tucks a Chux in her panties ?? Would be interested in surgery if there was a surgical option that could help her NUTRITION: taking protein supplement WOUND CARE: SilverCel + Enluxtra OFFLOADING: has group 2 mattress and offloading [...] SOCIAL HISTORY: at home with homecare and [employer] services MEDICATIONS: Current Outpatient Medications Medication ??? acetaminophen (TYLENOL) 325 MG tablet ??? ascorbic acid (VITAMIN C) 500 MG tablet ??? atenolol (TENORMIN) 25 MG tablet ??? Calcium Carb-Cholecalciferol (CALCIUM + D3) 600-200 MG-UNIT TABS ??? cetirizine (ZYRTEC) 10 MG tablet ??? Cholecalciferol (VITAMIN D PO) ??? desoximetasone (TOPICORT) 0.05 % GEL ??? FEROSUL 325 (65 Fe) MG tablet ??? fluconazole (DIFLUCAN) 150 MG tablet ??? furosemide (LASIX) 40 MG tablet ??? hydrocortisone 2.5 % ointment ??? losartan (COZAAR) 50 MG tablet ??? nystatin (MYCOSTATIN) 820546 UNIT/GM external ointment ??? NYSTOP 728890 UNIT/GM POWD powder ??? Pediatric Multivitamins-Fl (CHEWABLE MULTIVITE/FLUORIDE PO) ??? warfarin (COUMADIN) 10 MG tablet ??? warfarin (COUMADIN) 3 MG tablet No current facility-administered medications for this encounter. VITALS: BP 161/89 Pulse 90 Temp 97.8 ??F (36.6 ??C) (Temporal) PHYSICAL EXAM: GENERAL: Patient is alert and oriented and in no acute distress INTEGUMENTARY: Wound (used by OP [facility] only) 08/08/18 1325 Left ischial tuberosity pressure injury (Active) Thickness/Stage Stage 4 08/08/2018 1:47 PM Dressing Appearance moist drainage 08/08/2018 1:00 PM Base red/granulating 08/08/2018 1:47 PM Red (%), Wound Tissue Color 70 08/08/2018 1:47 PM Yellow (%), Wound Tissue Color 30 08/08/2018 1:47 PM Periwound excoriated;pink 08/08/2018 1:47 PM Periwound Temperature warm 08/08/2018 1:47 PM Periwound Skin Turgor soft 08/08/2018 1:47 PM Edges irregular 08/08/2018 1:47 PM Length (cm) 7 08/08/2018 1:00 PM Width (cm) 8 08/08/2018 1:00 PM Depth (cm) 6.2 08/08/2018 1:00 PM Wound Volume (cm^3) 347.2 cm^3 08/08/2018 1:00 PM Drainage Characteristics/Odor serosanguineous 08/08/2018 1:47 PM Drainage Amount copious 08/08/2018 1:47 PM PROCEDURE: 4% topical lidocaine was applied to the wound by the CORE WINDER MACHINE OPERATOR. Patient was determined to be capable of making their own medical decisions and informed consent was obtained. Using a sharp curette a surgical debridement was performed down to and including subcutaneous tissue of <20. Hemostasis was achieved with pressure. The patient tolerated the procedure well. 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 We will try adding layer of drape over Enluxtra and SilverCel 2. Continue covering if dressing falls off with Chux FOLLOW-UP: with Dr. Zulay ELIZONDO (NICOLE) ZAHRAA WEISS NCIAL ASSISTANCE SPECIALIST documented in this encounter Plan of Treatment Upcoming Encounters Date Type Specialty Care Team Description 11/15/2022 Virtual Visit Haylie Wakefield, [facility] [address] [facility] [address] [place], [place] [phone] (Wo rk) 11/15/2022 Virtual Visit IM/Peds Yane Barraza MD [address] [facility] [address] [facility] [address] [place], [place] [phone] (Wo rk) 03/03/2023 Virtual Visit Neurology Erlinda Barber MD 420 [facility] 295 [place], [place] [phone] (Wo rk) documented as of this encounter Visit Diagnoses Diagnosis Pressure ulcer of ischium, left, stage I V (H) documented in this encounter Care Teams Oracle Software Engineer Relationship Specialty Start Date End Date Lucero Stevenson PCP - General Pediatrics 10/11/11 04/22/19 MD Annetta Lucero Stevenson PCP - Assigned PCP 06/17/1809/18 MD TOÑO Littlejohn [address] [place], [place] [phone] Chastity Montero MD Dermatology 09/23/14 420 [facility] 98 [place], [place] [address] Johnnie Alcocer MD Surgeon General Surgery 03/23/17 [address] [place], [place] [phone] Janie Petersen, CHANDLER Clinic Plant Supervisor Primary Care - CC 05/03/18 08/09/18 Lucero Stevenson Assigned PCP 06/17/18 11/09/19 MD TOÑO Littlejohn [address] [place] [address] documented as of this encounter
--- OUTSIDE RECORDS SUMMARY | 2022-06-15 13:09 | XMS_ITS | Encounter Summary ---
:1945 Author Organization [facility] Address [address] [place] [address] Care Team Providers Name Role Phone Lucero Stevenson MD Primary Care Provider [phone] Chastity Montero MD Unavailable [phone] Johnnie Alcocer MD Unavailable Janie Petersen RN Unavailable Unavailable Lucero Stevenson MD Unavailable [phone] Lucero Stevenson MD Unavailable [phone] Encounter Details Date Type Department Care Team Description 07/18/2018 Travel Social History Tobacco Use Types Packs/Day [...] D Haylie Cheung, [facility] [address] [facility] [place] [address] (Wo rk) 11/15/2022 Virtual Visit IM/Peds Yane Barraza MD [address] [facility] [place] [phone] (Wo rk) 03/03/2023 Virtual Visit Neurology Erlinda Barber MD [address] [facility] [address] [place] [address] (Wo rk) documented as of this encounter Visit Diagnoses Not on filedocumented in this encounter Care Teams Textile Worker Relationship Specialty Start Date End Date Lucero Stevenson PCP - General Pediatrics 10/11/11 04/22/19 MD Annetta Lucero Stevenson PCP - Assigned PCP 06/17/1809/18 MD TOÑO Littlejohn JESSICA [address] [place], [place] [phone] Chastity Montero MD Dermatology 09/23/14 [address] [facility] 98 [place], [place] [address] Johnnie Alcocer MD Surgeon General Surgery 03/23/[address] [place], [place] [address] Janie Petersen, CHANDLER Clinic Track Broom Operator Primary Care - CC 05/03/18 08/09/18 Lucero Stevenson Assigned PCP 06/17/18 11/09/19 MD TOÑO Littlejohn [address] [place], [place] [phone] documented as of this encounter
--- OUTSIDE RECORDS SUMMARY | 2022-06-15 13:09 | XMS_ITS | Encounter Summary ---
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 Follow up instructions given over the phone to Home Care nurse for warfarin management. SUBJECTIVE: Patient Findings Positives: No Problem Findings OBJECTIVE INR Date Value Ref Range Status 07/19/2018 2.7 (A) 0.9 - 1.1 Final ASSESSMENT / PLAN INR assessment THER Recheck INR In: 2 WEEKS INR Location Homecare INR Anticoagulation Summary As of 07/19/2018 INR goal: 2.0-3.0 TTR: 79.6 % (2.8 y) INR used for dosin.7 (07/19/2018) Warfarin maintenance plan: 13 mg (3 mg x 1 and 10 mg x 1) every Mon, Fri; 10 mg (10 mg x 1) all other days Full warfarin instructions: 13 mg every Mon, Fri; 10 mg all other days Weekly warfarin total: 76 mg No change documented: Qing Guy RN Plan last modified: Qing Guy RN (05/21/2018) Next INR check: 08/06/2018 Target end date: Indefinite Indications Personal history of pulmonary embolism [Z86.711] ferry terminal 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 of 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 [Z79.01] Anticoagulation Episode Summary INR check location: [facility] Preferred lab: Send INR reminders to: [facility]IC Comments: 7.5mg, 3mg, 6mg & 10mg tabs - devaughn dose / [facility] FAHEEM Martinez [phone] / APPT CARD ONLY Anticoagulation Care Providers Provider Role Specialty Phone number Lucero Stevenson MD Internal Medicine [phone] See the Encounter Report to view Anticoagulation Flowsheet and Dosing Calendar (Go to Encounters tabin chart review, and find the Anticoagulation Therapy Visit) Qing Grommesch, RN ENTERS SUPERVISOR documented in this encounter Plan of Treatment Upcoming Encounters Date Type Specialty Care Team Description 11/15/2022 Virtual Visit Pharm Haylie Gonzalez, [facility] [address] [facility] [place] [address] (Wo rk) 11/15/2022 Virtual Visit IM/Peds Yane Barraza MD [address] [facility] [place] [address] (Wo rk) 03/03/2023 Virtual Visit Neurology Erlinda Barber MD [address] [facility] [address] [place] [address] (Wo rk) documented as of this encounter Procedures Procedure Name Priority Date/Time Associated Diagnosis Comme nts INR Routine 07/19/2018 10:15 AM Results for this CARPENTERS SUPERVISOR procedure are i n the results section . documented in this encounter Results (ABNORMAL) INR (07/19/2018 10:15 AM CARPENTERS SUPERVISOR) P athologist Signature INR 2.7 (A) 0.9 - 1.1 EXTERNAL LAB Specimen (Source) Anatomical Collection Method Collection Time Re ceived Time Location / / Volume Laterality Blood specimen 07/19/2018 10:15 (specimen) AM CARPENTERS SUPERVISOR Resulting Agency Comment [facility] Lucero Stevenson MD LAB - BLOOD ORDERABLES Performing Organization Address City/State/ZIP Code Phon e Number EXTERNAL LAB EXTERNAL LAB External Lab documented in this encounter Visit Diagnoses Diagnosis ferry terminal 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 of anticoagulant t herapy - Primary Personal history of pulmonary embolism documented in this encounter Care Teams Trade Promotion Analyst Relationship Specialty Start Date End Date Lucero Stevenson PCP - General Pediatrics 10/11/11 04/22/19 MD Annetta Lucero Stevenson PCP - Assigned PCP 06/17/1809/18 MD TOÑO [place] [address] [place], [place] [phone] Chastity Montero MD Dermatology 09/23/14 [address] [place] [address] [facility] [address] [place], [place] [address] Johnnie Alcocer MD Surgeon General Surgery 03/23/17 [address] [facility] [address] [place] [address] Janie Petersen, CHANDLER Clinic Salesperson Sheet Music Primary Care - CC 05/03/18 08/09/18 Lucero Stevenson Assigned PCP 06/17/18 11/09/19 MD OTÑO Little[place] [address] [address] documented as of this encounter
--- OUTSIDE RECORDS SUMMARY | 2022-06-15 13:09 | XMS_ITS | Encounter Summary ---
:1945 Author Organization [place] Address [address] [place] [address] Care Team Providers Name Role Phone Lucero Stevenson MD Primary Care Provider [phone] Chastity Montero MD Unavailable [phone] Johnnie Alcocer MD Unavailable Janie Petersen RN Unavailable Unavailable Lucero Stevenson MD Unavailable [phone] Lucero Stevenson MD Unavailable [phone] Reason for Visit Reason Onset Date Comments Home Care/Hospice 07/26/2018 FYI - Pt being disch arged Encounter Details Date Type Department Care Team Description 07/26/2018 [facility] Lucero Stevenson Home Care/Hospice (FYI Clinic Yarelis Littlejohn MD - Pt being discharged) [address] [place] [address] [place] [address] [phone] Social History Tobacco Use Types Packs/Day Years [...] 05/03/2021 organizations such as voodoo groups, unions, fraPlanet8 or athletic groups, or school groups? How [...] Telephone Encounter - Lucero Stevenson MD - 07/26/2018 2:34 PM FOREST FIRE MANAGEMENT OFFICER Noted. Lucero Stevenson MD ST FIRE MANAGEMENT OFFICER Telephone Encounter - Gisele Reed - 07/26/2018 12:42 PM CST Reason for call: Other Patient called regarding (reason for call): Homecare Update Additional comments: Kristie Bailey calling in with homecare, wanting an FYI to Dr. Stevenson that patient is being discharged from homecare occupational therapy. Phone number to reach patient: Other phone number: [phone] for Kristie Giovany Time: any Can we leave a detailed message on this number? Not Applicable ST FIRE MANAGEMENT OFFICER documented in this encounter Plan of Treatment Upcoming Encounters Date Type Specialty Care Team Description 11/15/2022 Virtual Visit Pharm D Haylie Cheung, [facility] [address] [place] [address] (Wo rk) 11/15/2022 Virtual Visit IM/Peds Yane Barraza MD [address] [facility] [place] [address] (Wo rk) 03/03/2023 Virtual Visit Neurology Erlinda Barber MD [address] [facility] [address] [place] [address] (Wo rk) documented as of this encounter Visit Diagnoses Not on filedocumented in this encounter Care Teams Auto Radiator Specialist Relationship Specialty Start Date End Date Lucero Stevenson PCP - General Pediatrics 10/11/11 04/22/19 MD Annetta Lucero Stevenson PCP - Assigned PCP 06/17/1809/18 MD TOÑO [place] [address] [place], [place] [phone] Chastity Montero MD Dermatology 09/23/14 [address] [facility] 98 [place], [place] [phone] Johnnie Alcocer MD Surgeon General Surgery 03/23/17 [address] [facility] [address] [place], [place] [phone] Janie Petersen, CHANDLER Clinic Senior Oracle Soa Developer Primary Care - CC 05/03/18 08/09/18 Lucero Stevenson Assigned PCP 06/17/18 11/09/19 MD TOÑO [place] [address] [place], [place] [id number] documented as of this encounter
--- OUTSIDE RECORDS SUMMARY | 2022-06-15 13:09 | XMS_ITS | Encounter Summary ---
:1945 Author Organization [place] Address [address] [place] [address] Care Team Providers Name Role Phone Lucero Stevenson MD Primary Care Provider [phone] Chastity Montero MD Unavailable [phone] Johnnie Alcocer MD Unavailable Janie Petersen RN Unavailable Unavailable Lucero Stevenson MD Unavailable [phone] Lucero Stevenson MD Unavailable [phone] Encounter Details Date Type Department Care Team Description 08/01/2018 Travel Social History Tobacco Use Types Packs/Day [...] Cheung, [facility] [address] [facility] [place] [address] (Wo rk) 11/15/2022 Virtual Visit IM/Peds Yane Barraza MD [address] [facility] [place] [id number] (Wo rk) 03/03/2023 Virtual Visit Neurology Erlinda Barber MD [address] [place] [address] [facility] [address] [place] [address] (Wo rk) documented as of this encounter Visit Diagnoses Not on filedocumented in this encounter Care Teams Sales Agent Insurance Relationship Specialty Start Date End Date Lucero Stevenson PCP - General Pediatrics 10/11/11 04/22/19 MD Annetta Lucero Stevenson PCP - Assigned PCP 06/17/1809/18 MD TOÑO [place] [address] [place], [place] [phone] Chastity Montero MD Dermatology 09/23/14 [address] [place] [address] [facility] 98 [place], [place] [address] Johnnie Alcocer MD Surgeon General Surgery 03/23/[address] [place], [place] [address] Janie Petersen, CHANDLER Clinic Cooler Worker Primary Care - CC 05/03/18 08/09/18 Lucero Stevenson Assigned PCP 06/17/18 11/09/19 MD TOÑO [place] [address] [place], [place] [phone] documented as of this encounter
--- OUTSIDE RECORDS SUMMARY | 2022-06-15 13:09 | XMS_ITS | Encounter Summary ---
:1945 Author Organization [place] Address [address] [place] [address] Care Team Providers Name Role Phone Lucero Stevenson MD Primary Care Provider [phone] Chastity Montero MD Unavailable [phone] Johnnie Alcocer MD Unavailable Janie Petersen RN Unavailable Unavailable Lucero Stevenson MD Unavailable [phone] Lucero Stevenson MD Unavailable [phone] Encounter Details Date Type Department Care Team Description 06/26/2018 Anticoagulation Therapy [facility] Personal history of pulmonary embolism; Visit Clinic [facility] current use of ant icoagulant therapy [address] [facility] [address] [place] [address] Social [...] encounter Progress Notes Qing Guy RN - 06/26/2018 3:15 PM CST ANTICOAGULATION FOLLOW-UP Patient Name: Charlette Brush Date: 06/26/2018 Contact Type: Telephone Call received from Yina George [facility] Care nurse, with INR result. Follow up instructions given over the phone to Home Care nurse for warfarin management. SUBJECTIVE: Patient Findings Positives: No Problem Findings OBJECTIVE INR Date Value Ref Range Status 06/25/2018 2.5 0.9 - 1.1 Final ASSESSMENT / PLAN INR assessment THER Recheck INR In: 1 WEEK INR Location Homecare INR Anticoagulation Summary As of 06/26/2018 INR goal: 2.0-3.0 TTR: 79.2 % (2.7 y) INR used for dosin.5 (06/25/2018) Warfarin maintenance plan: 13 mg (3 mg x 1 and 10 mg x 1) every Mon, Fri; 10 mg (10 mg x 1) all other days Full warfarin instructions: 13 mg every Mon, Fri; 10 mg all other days Weekly warfarin total: 76 mg No change documented: Qing Guy RN Plan last modified: Qing Guy RN (05/21/2018) Next INR check: 07/03/2018 Target end date: Indefinite Indications Personal history of pulmonary embolism [Z86.711] exterminator helper current use of 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 [Z79.01] Anticoagulation Episode Summary INR check location: [facility]in Clinic Preferred lab: Send INR reminders to: [facility]ICOAG CLINIC Comments: 7.5mg, 3mg, 6mg & 10mg tabs - devaughn dose / [facility] daily - Michelle [phone] / APPT CARD ONLY Anticoagulation Care Providers Provider Role Specialty Phone number Lucero Stevenson MD Internal Medicine [phone] See the Encounter Report to view Anticoagulation Flowsheet and Dosing Calendar (Go to Encounters tabin chart review, and find the Anticoagulation Therapy Visit) Dosage adjustment made based on physician directed care plan. Qing Grommesch, RN ICAL DOCUMENTATION SPECIALIST documented in this encounter Plan of Treatment Upcoming Encounters Date Type Specialty Care Team Description 11/15/2022 Virtual Visit Pharm D Haylie Cheung, [facility] [address] [facility] [place] [address] (Wo rk) 11/15/2022 Virtual Visit IM/Peds Yane Barraza MD [address] [facility] [place] [address] (Wo rk) 03/03/2023 Virtual Visit Neurology Erlinda Barber MD [address] [facility] 295 [place] [address] (Wo rk) documented as of this encounter Procedures Procedure Name Priority Date/Time Associated Diagnosis Comme nts INR Routine 06/25/2018 4:04 PM Results f or this CLINICAL DOCUMENTATION SPECIALIST procedure are i n the results section . documented in this encounter Results INR (06/25/2018 4:04 PM CLINICAL DOCUMENTATION SPECIALIST) P athologist Signature INR 2.5 0.9 - 1.1 EXTERNAL LAB Specimen (Source) Anatomical Collection Method Collection Time Re ceived Time Location / / Volume Laterality Blood specimen 06/25/2018 4:04 PM (specimen) CLINICAL DOCUMENTATION SPECIALIST Resulting Agency Comment [facility] Lucero Stevenson MD LAB - BLOOD ORDERABLES Performing Organization Address City/State/ZIP Code Phon e Number EXTERNAL LAB EXTERNAL LAB External Lab documented in this encounter Visit Diagnoses Diagnosis Personal history of pulmonary embolism exterminator helper current use of anticoagulant t herapy documented in this encounter Care Teams Director Index Relationship Specialty Start Date End Date Lucero Stevenson PCP - General Pediatrics 10/11/11 04/22/19 MD Annetta Lucero Stevenson PCP - Assigned PCP 06/17/1809/18 MD TOÑO [place] [address] [place], [place] [phone] Chastity Montero MD Dermatology 09/23/14 [address] [facility] [address] [place], [place] [address] Johnnie Alcocer MD Surgeon General Surgery 03/23/17 [address] [facility] [address] [place], [place] [address] Janie Petersen, CHANDLER Clinic Naturopathic Oncology Provider Primary Care - CC 05/03/18 08/09/18 Lucero Stevenson Assigned PCP 06/17/18 11/09/19 [facility] [address] [address] documented as of this encounter
--- OUTSIDE RECORDS SUMMARY | 2022-06-15 13:09 | XMS_ITS | Encounter Summary ---
:1945 Author Organization [place] Address [address] [place] [address] Care Team Providers Name Role Phone Lucero Stevenson MD Primary Care Provider Chastity Montero MD Unavailable [phone] Johnnie Alcocer MD Unavailable Lucero Stevenson MD Unavailable Lucero Stevenson MD Unavailable [phone] Encounter Details Date Type Department Care Team Description 08/16/2018 Anticoagulation [facility] Ruben Stevenson history of pulmonary embolism; Therapy Visit Clinic Yarelis Littlejohn, clinical associate current use of ant icoagulant therapy [address] [facility] [address] [place] [address] [place], [place] [phone] Social History Tobacco Use Types Packs/Day Years [...] or slept in a fpc (including now)? Sex Assigned at Date Recorded Female 12/24/2018 12:35 PM CDT documented as of this encounter Progress Notes Bri Romo RN - 08/16/2018 12:58 PM CST ANTICOAGULATION FOLLOW-UP CLINIC VISIT Patient Name: Charlette Brush Date: 08/16/2018 Contact Type: Telephone/ Michelle from [facility] and patient SUBJECTIVE: Patient Findings Positives: Change in medications Comments: Patient had been prescribed Diflucan for 3 days. Last . OBJECTIVE INR Date Value Ref Range Status 08/16/2018 3.2 (A) 0.9 - 1.1 Final ASSESSMENT / PLAN INR assessment SUPRA Recheck INR In: 4 DAYS INR Location Homecare INR Anticoagulation Summary As of 08/16/2018 INR goal: 2.0-3.0 TTR: 79.3 % (2.9 y) INR used for dosin.2! (08/16/2018) Warfarin maintenance plan: 13 mg (3 mg x 1 and 10 mg x 1) every Mon, Fri; 10 mg (10 mg x 1) all other days Full warfarin instructions: 08/16: 6 mg; Otherwise 13 mg every Mon, Fri; 10 mg all other days Weekly warfarin total: 76 mg Plan last modified: Qing Guy RN (05/21/2018) Next INR check: 08/20/2018 Target end date: Indefinite Indications Personal history of pulmonary embolism [Z86.711] longterm current use of 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 [Z79.01] Anticoagulation Episode Summary INR check location: Coumadin Clinic Preferred lab: Send INR reminders to: [facility] Comments: 7.5mg, 3mg, 6mg & 10mg tabs - devaughn dose / [facility] MWF - Michelle [phone] / APPT CARD ONLY Anticoagulation Care Providers Provider Role Specialty Phone number Lucero Stevenson MD Internal Medicine [phone] See the Encounter Report to view Anticoagulation Flowsheet and Dosing Calendar (Go to Encounters tabin chart review, and find the Anticoagulation Therapy Visit) Patient INR supra therapeutic. Will take 6 mg today and resume maintenance dosing and home care willre-check on Monday. Bri Solorzano RN MONITOR documented in this encounter Plan of Treatment Upcoming Encounters Date Type Specialty Care Team Description 11/15/2022 Virtual Visit Pharm Haylie Gonzalez, [facility] [address] [facility] [place] [address] (Wo rk) 11/15/2022 Virtual Visit IM/Peds Yane Barraza MD [address] [place] [address] (Wo rk) 03/03/2023 Virtual Visit Neurology Erlinda Barber MD 420 [facility] 295 [place] [address] (Wo rk) documented as of this encounter Procedures Procedure Name Priority Date/Time Associated Diagnosis Comme nts INR Routine 08/16/2018 Results for thi s procedure are in the resu lts section. documented in this encounter Results (ABNORMAL) INR (08/16/2018) P athologist Signature INR 3.2 (A) 0.9 - 1.1 EXTERNAL LAB Specimen (Source) Anatomical Location Collection Method / Collectio n Time Received Time / Laterality Volume Blood specimen 08/16/2018 (specimen) Resulting Agency Comment [facility] Patient Reported LAB - BLOOD ORDERABLES Performing Organization Address City/State/ZIP Code Phon e Number EXTERNAL LAB EXTERNAL LAB External Lab documented in this encounter Visit Diagnoses Diagnosis Personal history of pulmonary embolism longterm current use of anticoagulant t herapy documented in this encounter Care Teams Behavioral Interventionist Relationship Specialty Start Date End Date Lucero Stevenson MD PCP - General Pediatrics 10/11/11 04/22/19 Lucero Stevenson MD PCP - Assigned PCP 06/17/18 09/18/18 [facility] [address] [place], [place] [phone] Chastity Montero MD MD Dermatology 09/23/[address] [facility] [address] [place], [place] [address] Johnnie Alcocer MD Surgeon General Surgery 03/23/17 [address] [facility] [address] [place], [place] [address] Lucero Stevenson MD Assigned PCP 06/17/18 11/09/19 [facility] [address] [place], [place] [phone] documented as of this encounter
--- OUTSIDE RECORDS SUMMARY | 2022-06-15 13:09 | XMS_ITS | Encounter Summary ---
:1945 Author Organization [place] Address [address] [place] [address] Care Team Providers Name Role Phone Lucero Stevenson MD Primary Care Provider [phone] Chastity Montero MD Unavailable [phone] Johnnie Alcocer MD Unavailable Janie Petersen RN Unavailable Unavailable Lucero Stevenson MD Unavailable [phone] Lucero Stevenson MD Unavailable [phone] Reason for Visit Reason Onset Date Comments Home Care/Hospice 07/23/2018 wound vac placement Encounter Details Date Type Department Care Team Description 07/23/2018 [facility] Nuvia Mccall Home Care/Hospice Wound Clinic [place] Munson PA-C (wound vac placement) [address] [place] [address] [address] [phone] [place] [address] (Wo rk) Social History Tobacco Use Types [...] 05/03/2021 organizations such as episcopal groups, unions, [employer] or athletic groups, or school groups? How [...] Telephone Encounter - Yanet Mosqueda RN - 07/23/2018 3:00 PM TRAFFIC AGENT Home care nurse calling to report that the patient is having a hard time keeping the wound vac on more than 12 hours due to drape loosening with movement and toileting. The patient is also getting skindamage from the vac drape on her left hip and buttock. Discussed case with Nuvia Mccall PA-C who gave orders to discontinue the wound vac and apply saline damp gauze to wound bed and change daily and prn. Verbal order given to Nellie. Order status update completed through [facility] Express: Pickup Order Confirmation Note: Your invoice will reflect billing through Monday, July 23, 2018. You will be receiving a confirmation email for your records shortly. You may also print the following order details: Order Date 07/23/2018 Customer Name [facility] Customer Number [id number] Patient Name MARZENA BRUSH Pickup Location [facility] to contact patient with return instructions Rental Order Number [id number] Work Order Number [id number] Start Bill Date 07/14/2018 Therapy Discharge Date 07/23/2018 Stop Bill Date 07/23/2018 Product Description VAC ActiVAC Product Serial Number [id number] Product Problem No Medical Injury No FIC AGENT documented in this encounter Plan of Treatment Upcoming Encounters Date Type Specialty Care Team Description 11/15/2022 Virtual Visit Haylie Wakefield, [facility] [address] [place] [address] (Wo rk) 11/15/2022 Virtual Visit IM/Peds Yane Barraza MD [address] [place] [address] (Wo rk) 03/03/2023 Virtual Visit Neurology Erlinda Barber MD [address] [place] [address] [facility] [address] [place], [place] [address] (Wo rk) documented as of this encounter Visit Diagnoses Not on filedocumented in this encounter Care Teams Military Pilot Relationship Specialty Start Date End Date Lucero Stevenson PCP - General Pediatrics 10/11/11 04/22/19 MD Annetta Lucero Stevenson PCP - Assigned PCP 06/17/1809/18 MD TOÑO Littlejohn JESSICA [address] [place], [place] [phone] Chastity Montero MD Dermatology 09/23/14 [address] [facility] [address] [place], [place] [address] Johnnie Alcocer MD Surgeon General Surgery 03/23/17 [address] [facility] [address] [place], [place] [address] Janie Petersen, CHANDLER Clinic Electronic Bench Technician Primary Care - CC 05/03/18 08/09/18 Lucero Stevenson Assigned PCP 06/17/18 11/09/19 MD TOÑO Littlejohn [address] [place], [place] [phone] documented as of this encounter
--- OUTSIDE RECORDS SUMMARY | 2022-06-15 13:09 | XMS_ITS | Encounter Summary ---
:1945 Author Organization [place] Address [address] [place] [address] Care Team Providers Name Role Phone Lucero Stevenson MD Primary Care Provider [phone] Chastity Montero MD Unavailable [phone] Johnnie Alcocer MD Unavailable Janie Petersen RN Unavailable Unavailable Lucero Stevenson MD Unavailable [phone] Lucero Stevenson MD Unavailable [phone] Reason for Visit Reason Onset Date Comments Orders 07/19/2018 Order for nieves iglesias Encounter Details Date Type Department Care Team Description 07/19/2018 Telephone [facility] Lucero Stevenson rs (Order for Clinic MD stephie Flower) [address] [place] [address] [place] [address] [phone] Social History Tobacco Use Types Packs/Day Years [...] 05/03/2021 organizations such as holiness groups, unions, [employer]chanted [employer] or athletic groups, or school groups? How [...] Telephone Encounter - Jolanta Reddy RN - 08/07/2018 12:49 PM SR. MEDIA MANAGER [facility] calls-updated her of the message below. Per recent office visit, plan was to follow up to this in the spring/summer. Jolanta Reddy RN Message handled by Nurse Triage. . MEDIA MANAGER Telephone Encounter - Bri Romo RN - 07/20/2018 9:38 AM SR. MEDIA MANAGER Returned call and they are custom fit velcro wraps no need to order compression Order completed and faxed to saleem Cornelius RN - Triage [facility] . MEDIA MANAGER Telephone Encounter - Danni Marcus RN - 07/19/2018 4:02 PM CST LM to inquire if we need to indicate any level of compression, or if the order can be placed just asit is written below. Order pended -awaiting verification from Occupational therapist. Ashli Marcus RN . MEDIA MANAGER Telephone Encounter - Nicole Velazco - 07/19/2018 10:59 AM CST Kristie Bailey (Occupational therapist) called and would like an order faxed to [facility] (FAX # [phone]) for bilateral lower extremity compression garments for lipidemia (2 pairs). If there are any questions please call her at [phone]. . MEDIA MANAGER documented in this encounter Plan of Treatment Upcoming Encounters Date Type Specialty Care Team Description 11/15/2022 Virtual Visit Pharm Haylie Gonzalez, [facility] [address] [place] [place] [address] (Wo rk) 11/15/2022 Virtual Visit IM/Peds Yane Barraza MD [address] [facility] [address] [facility] [address] (Wo rk) 03/03/2023 Virtual Visit Neurology Erlinda Barber MD [address] [facility] [address] [place] [address] (Wo rk) documented as of this encounter Visit Diagnoses Diagnosis Lymphedema of both lower extremities - P rimary documented in this encounter Care Teams Sweat Box Attendant Relationship Specialty Start Date End Date Lucero Stevenson PCP - General Pediatrics 10/11/11 04/22/19 MD Annetta Lucero Stevenson PCP - Assigned PCP 06/17/1809/18 MD Annetta [facility] [address] [place] [address] Chastity Montero MD Dermatology 09/23/14 [address] [facility] 98 [place] [address] Johnnie Alcocer MD Surgeon General Surgery 03/23/[address] [place], [place] [phone] Janie Petersen, CHANDLER Clinic Sales Representative [employer] Primary Care - CC 05/03/18 08/09/18 Lucero Stevenson Assigned PCP 06/17/18 11/09/19 MD TOÑO Littlejohn [address] [place] [address] documented as of this encounter
--- OUTSIDE RECORDS SUMMARY | 2022-06-15 13:09 | XMS_ITS | Encounter Summary ---
:1945 Author Organization [place] Address [address] [place] [address] Care Team Providers Name Role Phone Lucero Stevenson MD Primary Care Provider [phone] Chastity Montero MD Unavailable [phone] Johnnie Alcocer MD Unavailable Lucero Stevenson MD Unavailable [phone] Lucero Stevenson MD Unavailable Reason for Visit Reason Onset Date Comments Erroneous encounter-disregard 08/16/2018 Encounter Details Date Type Department Care Team Description 08/16/2018 Telephone [facility] Lucero Stevenson [facility] Yarelis Littlejohn MD encounter-disregard 330 [facility] [address] [place] [address] [address] [place] [address] [place] [address] [phone] Social History Tobacco Use Types Packs/Day Years [...] Haylie Gonzalez, [facility] [address] [facility] [place] [address] (Wo rk) 11/15/2022 Virtual Visit IM/Peds Yane Barraza MD [address] [facility] [place] [address] (Wo rk) 03/03/2023 Virtual Visit Neurology Erlinda Barber MD 420 [facility] 295 [place], [place] [phone] (Wo rk) documented as of this encounter Visit Diagnoses Not on filedocumented in this encounter Care Teams Tail Edger Relationship Specialty Start Date End Date Lucero Stevenson MD PCP - General Pediatrics 10/11/11 04/22/19 Lucero Stevenson MD PCP - Assigned PCP 06/17/18 09/18/18 [facility] [address] [place] [id number] Chastity Montero MD MD Dermatology 09/23/14 420 [facility] 98 [place] [address] Johnnie Alcocer MD Surgeon General Surgery 03/23/[address] [place], [place] [phone] Lucero Stevenson MD Assigned PCP 06/17/18 11/09/19 [facility] [address] [place] [address] documented as of this encounter
--- OUTSIDE RECORDS SUMMARY | 2022-06-15 13:09 | XMS_ITS | Encounter Summary ---
:1945 Author Organization [place] Address [address] [place] [address] Care Team Providers Name Role Phone Lucero Stevenson MD Primary Care Provider [phone] Chastity Montero MD Unavailable [phone] Johnnie Alcocer MD Unavailable Janie Petersen RN Unavailable Unavailable Lucero Stevenson MD Unavailable [phone] Lucero Stevenson MD Unavailable [phone] Encounter Details Date Type Department Care Team Description 07/03/2018 Anticoagulation Therapy [facility] Personal history of pulmonary embolism; Visit Clinic [place] skilled nursing current use of ant icoagulant therapy [address] [facility] [address] [place] [address] Social [...] encounter Progress Notes Qing Guy RN - 07/03/2018 3:15 PM CST ANTICOAGULATION FOLLOW-UP Patient Name: Charlette Brush Date: 07/03/2018 Contact Type: Telephone Call received from [facility] nurse, with INR result. Follow up instructions given over the phone to Home Care nurse for warfarin management. SUBJECTIVE: Patient Findings Positives: No Problem Findings OBJECTIVE INR Date Value Ref Range Status 07/03/2018 2.4 (A) 0.9 - 1.1 Final ASSESSMENT / PLAN INR assessment THER Recheck INR In: 2 WEEKS INR Location Homecare INR Anticoagulation Summary As of 07/03/2018 INR goal: 2.0-3.0 TTR: 79.3 % (2.8 y) INR used for dosin.4 (07/03/2018) Warfarin maintenance plan: 13 mg (3 mg x 1 and 10 mg x 1) every Mon, Fri; 10 mg (10 mg x 1) all other days Full warfarin instructions: 13 mg every Mon, Fri; 10 mg all other days Weekly warfarin total: 76 mg No change documented: Qing Guy RN Plan last modified: Qing Guy RN (05/21/2018) Next INR check: 07/19/2018 Target end date: Indefinite Indications Personal history of pulmonary embolism [Z86.711] 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 use of 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 [Z79.01] Anticoagulation Episode Summary INR check location: Coumadin Clinic Preferred lab: Send INR reminders to: ANTICOAG CLINIC Comments: 7.5mg, 3mg, 6mg & 10mg tabs - devaughn dose / [facility] daily - Michelle [phone] / APPT CARD ONLY Anticoagulation Care Providers Provider Role Specialty Phone number Lucero Stevenson MD Internal Medicine [phone] See the Encounter Report to view Anticoagulation Flowsheet and Dosing Calendar (Go to Encounters tabin chart review, and find the Anticoagulation Therapy Visit) Qing Guy RN OR DEVOPS ENGINEER documented in this encounter Plan of Treatment Upcoming Encounters Date Type Specialty Care Team Description 11/15/2022 Virtual Visit Pharm Haylie Gonzalez, [facility] 14[address] [facility] [place] [address] (Wo rk) 11/15/2022 Virtual Visit IM/Peds Yane Barraza MD [address] [facility] [place] [address] (Wo rk) 03/03/2023 Virtual Visit Neurology Erlinda Barber MD [address] [place] [address] [facility] 295 [place] [address] (Wo rk) documented as of this encounter Procedures Procedure Name Priority Date/Time Associated Diagnosis Comme nts INR Routine 07/03/2018 12:43 PM Results for this SENIOR DEVOPS ENGINEER procedure are i n the results section . documented in this encounter Results (ABNORMAL) INR (07/03/2018 12:43 PM SENIOR DEVOPS ENGINEER) P athologist Signature INR 2.4 (A) 0.9 - 1.1 EXTERNAL LAB Specimen (Source) Anatomical Collection Method Collection Time Re ceived Time Location / / Volume Laterality Blood specimen 07/03/2018 12:43 (specimen) PM SENIOR DEVOPS ENGINEER Resulting Agency Comment [facility] Lucero Steevnson MD LAB - BLOOD ORDERABLES Performing Organization Address City/State/ZIP Code Phon e Number EXTERNAL LAB EXTERNAL LAB External Lab documented in this encounter Visit Diagnoses Diagnosis Personal history of pulmonary embolism 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 use of anticoagulant t herapy documented in this encounter Care Teams Dairy Husbandry Teacher Relationship Specialty Start Date End Date Lucero Stevenson PCP - General Pediatrics 10/11/11 04/22/19 MD Annetta Lucero Stevenson PCP - Assigned PCP 06/17/1809/18 MD TOÑO [facility] [address] [place], [place] [phone] Chastity Montero MD Dermatology 09/23/14 [address] [facility] [address] [facility] 98 [place], [place] [address] Johnnie Alcocer MD Surgeon General Surgery 03/23/17 [address] [facility] 300 [place], [place] [address] Janie Petersen, CHANDLER Clinic Sales Representative [employer] Primary Care - CC 05/03/18 08/09/18 Lucero Stevenson Assigned PCP 06/17/18 11/09/[address] [facility] [address] [place] [address] documented as of this encounter
--- OUTSIDE RECORDS SUMMARY | 2022-06-15 13:10 | XMS_ITS | Encounter Summary ---
:1945 Author Organization [place] Address [address] [place] [address] Care Team Providers Name Role Phone Lucero Stevenson MD Primary Care Provider [phone] Chastity Montero MD Unavailable [phone] Johnnie Alcocer MD Unavailable Janie Petersen RN Unavailable Unavailable Catalino Carballo APRN PIPING ENGINEER Unavailable [phone] Reason for Visit Reason Comments Medication Refill furosemide (LASIX) 40 MG tab let Encounter Details Date Type Department Care Team Description 06/11/2018 Refill [facility] Lucero Stevenson [facility] Refill Clinic Yarelis Littleojhn MD (furosemide (LASIX) 40 [address] [facility] Y MG tablet) [facility] [address] [place] [address] [address] [place] [address] [place] [address] [phone] Social History Tobacco Use Types Packs/Day Years [...] or slept in a retirement (including now)? Sex Assigned at Date Recorded Female 12/24/2018 12:35 PM CDT documented as of this encounter Miscellaneous Notes Telephone Encounter - Edward Jack - 06/11/2018 7:29 PM CST Requested Prescriptions Pending Prescriptions Disp Refills ??? furosemide (LASIX) 40 MG tablet [Pharmacy Med Name: FUROSEMIDE 40MG TABLETS] Last Written Prescription Date: 05/30/2018 Last Fill Quantity: 90 tablet, # refills: 3 Last office visit: 05/30/2018 with prescribing provider: Lucero Stevenson MD Future Office Visit: Next 5 appointments (look out 90 days) Jun 26, 2018 1:30 PM ROTOR COIL TAPER Return Visit with Nuvia Mccall PA-C [facility] ([facility]) [address] [place] [address] [address] [facility] [phone] Aug 01, 2018 1:00 PM ROTOR COIL TAPER Office Visit with Lucero Stevenson MD [facility] ([facility]) [address] [facility] [address] [facility] [phone] 30 tablet 0 Sig: TAKE 1 TABLET BY MOUTH EVERY DAY. Diuretics (Including Combos) Protocol Failed 06/11/2018 6:55 PM Failed - Blood pressure under 140/90 in past 12 months BP Readings from Last 3 Encounters: 06/05/18 166/89 05/30/18 128/84 05/16/18 (!) 154/94 Passed - Recent (12 mo) or future (30 days) visit within the authorizing provider's specialty Patient had office visit in the last 12 months or has a visit in the next 30 days with authorizing provider or within the authorizing provider's specialty. See Patient Info tab in inbasket, or Choose Columns in Meds & Orders section of the refill encounter. Passed - Patient is age 18 or older Passed - No active pregancy on record Passed - Normal serum creatinine on file in past 12 months Recent Labs Lab Test 05/30/18 1612 CR 0.58 Passed - Normal serum potassium on file in past 12 months Recent Labs Lab Test 05/30/18 1612 POTASSIUM 4.0 Passed - Normal serum sodium on file in past 12 months Recent Labs Lab Test 05/30/18 1612 NA 140 Passed - No positive test in past 12 months R COIL TAPER documented in this encounter Plan of Treatment Upcoming Encounters Date Type Specialty Care Team Description 11/15/2022 Virtual Visit Pharm Haylie Gonzalez, [facility] [address] [place] [address] (Wo rk) 11/15/2022 Virtual Visit IM/Yane Mathias MD [address] [facility] [place] [address] (Wo rk) 03/03/2023 Virtual Visit Neurology Erlinda Barber MD [address] [facility] 295 [place] [address] (Wo rk) documented as of this encounter Visit Diagnoses Diagnosis Essential hypertension, benign documented in this encounter Care Teams Hand Welt Butter Relationship Specialty Start Date End Date Lucero Stevenson PCP - General Pediatrics 10/11/11 04/22/19 MD Annetta Catalino Carballo, PCP - Assigned PCP 03/18/18 06/16/18 BULK COOLERS INSTALLER PIPING ENGINEER [address] [place] [address] Chasttiy Montero MD Dermatology 09/23/14 [address] [facility] 98 [place] [address] Johnnie Alcocer MD Surgeon General Surgery 03/23/17 [address] [facility] 300 [place] [address] Janie Petersen, RN Clinic Quantitative Analyst Primary Care - CC 05/03/18 08/09/18 documented as of this encounter
--- OUTSIDE RECORDS SUMMARY | 2022-06-15 13:10 | XMS_ITS | Encounter Summary ---
:1945 Author Organization [place] Address [facility] [place] [address] Care Team Providers Name Role Phone Lucero Stevenson MD Primary Care Provider [phone] Chastity Montero MD Unavailable [phone] Johnnie Alcocer MD Unavailable Janie Petersen RN Unavailable Unavailable Lucero Stevenson MD Unavailable [phone] Lucero Stevenson MD Unavailable Reason for Visit Reason Comments Home Care/Hospice Encounter Details Date Type Department Care Team Description 06/25/2018 Documentation Only [facility] Stevenson [facility] Yarelis Littlejohn MD [address] [facility] [address] [facility] [address] [place], [place] [address] Social History Tobacco Use Types Packs/Day [...] or slept in a assisted (including now)? Sex Assigned at Date Recorded Female 12/24/2018 12:35 PM CDT documented as of this encounter Progress Notes Danni Marcus, CHANDLER - 06/25/2018 6:57 PM CST Bibi calling from [facility] for orders to discharge patient as she has reached her highestlevel of function for Physical therapy. Per Medicare guidelines, has to have order to discharge her from care. Please call Bibi at [phone]. OK TO LM. Ashli Marcus RN D WING AIRCRAFT CREW CHIEF Danni Marcus RN - 06/25/2018 6:57 PM CST Discussed with Dr. Roche to discharge from Physical therapy. LM with this information for Bibi at [facility]. Ashli Marcus RN D WING AIRCRAFT CREW CHIEF documented in this encounter Plan of Treatment Upcoming Encounters Date Type Specialty Care Team Description 11/15/2022 Virtual Visit Pharm D Haylie Cheung, [facility] 14[address] [facility] [place] [phone] (Wo rk) 11/15/2022 Virtual Visit [place] [address] [place] [address] [place] [phone] (Wo rk) 03/03/2023 Virtual Visit Neurology Erlinda Barber MD 420 [facility] 295 [place] [address] (Wo rk) documented as of this encounter Visit Diagnoses Not on filedocumented in this encounter Care Teams Type Photography Supervisor Relationship Specialty Start Date End Date Lucero Stevenson PCP - General Pediatrics 10/11/11 04/22/19 MD Annetta Lucero Stevenson PCP - Assigned PCP 06/17/1809/18 MD TOÑO Littlejohn [place] [address] [place], [place] [phone] Chastity Montero MD Dermatology 09/23/14 420 [facility] 98 [place], [place] [address] Johnnie Alcocer MD Surgeon General Surgery 03/23/17 [address] [facility] 300 [place], [place] [phone] Janie Petersen, CHANDLER Clinic Mechanical Design Technician Primary Care - CC 05/03/18 08/09/18 Lucero Stevenson Assigned PCP 06/17/18 11/09/19 MD An[facility]ta [facility] [address] [place] [address] documented as of this encounter
--- OUTSIDE RECORDS SUMMARY | 2022-06-15 13:10 | XMS_ITS | Encounter Summary ---
:1945 Author Organization [place] Address [address] [place] [address] Care Team Providers Name Role Phone Lucero Stevenson MD Primary Care Provider [phone] Chastity Montero MD Unavailable [phone] Johnnie Alcocer MD Unavailable Janie Petersen RN Unavailable Unavailable Catalino Carballo APRN ASSISTANT BUYER Unavailable [phone] Reason for Visit Diagnostic Imaging Ultrasound - Closed Specialty Diagnoses / Procedures Referred By Contact Refer red To Contact Radiology. Diagnoses Nabothian cyst Lucero Stevenson Ultrasound Procedures US Pelvis Complete without Transvaginal US Pelvic Complete with Transvaginal MD Grisel Littlejohn [address] [place], [place] [address] [facility] [address] [place] [address] Referral ID Status Reason Start Date Expiration Date Visits Requ ested Visits Authorized [id number] Closed 06/05/2018 06/05/2019 1 1 Encounter Details Date Type Department Care Team Description 06/15/2018 Hospital Encounter [facility] Soraya Patterson cyst [facility] MD Grisel Littlejohn [address] [place], [place] [address] [facility] [address] [address] [phone] [place], [place] [address] (Wo rk) Social History Tobacco Use Types [...] or slept in a jail (including now)? Sex Assigned at Date Recorded [...] nystatin (MYCOSTATIN) Apply topically 0 8 09/11/2019 905703 UNIT/GM external daily as needed cream NYSTOP 852194 UNIT/GM JOI TOPICALLY AA 60 g 11 [...] 1 09/201701/07/2019 MG tabletIndications: AND MONDAY. TAKE long-term current use of 10MG BY MOUTH ON [...] 1 05/0708/01/2018 MG tabletIndications: this size warfarin emt 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 current use of at this time. 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 documented as of this encounter Plan of Treatment Upcoming Encounters Date Type Specialty Care Team Description 11/15/2022 Virtual Visit Pharm Haylie Gonzalez, [facility] [address] [facility] [place] [address] (Wo rk) 11/15/2022 Virtual Visit IM/Peds Yane Barraza MD [address] [facility] [place] [address] (Wo winter) 03/03/2023 Virtual Visit Neurology Erlinda Barber MD 420 [facility] 295 [place] [address] (Wo winter) documented as of this encounter Procedures Procedure Name Priority Date/Time Associated Comments Diagnosis US PELVIC Routine 06/15/2018 9:40 AM Nabothian cyst Results for this TRANSABDOMINAL TOURIST AGENT procedure are in the results section. documented in this encounter Results US Pelvis Complete without Transvaginal (06/15/2018 9:40 AM TOURIST AGENT) Anatomical Region Laterality Modality Abdomen/Pelvis Ultrasound Specimen (Source) Anatomical Location Collection Method / Collectio n Time Received Time / Laterality Volume Impressions 06/15/2018 10:41 AM TOURIST AGENT IMPRESSION: Uterus and ovaries are unremarkable. Large simple-appearing nabothian cyst in the r egion of the cervix measures 3.4 cm in maximal diameter. No internal debris or wall thickening. No further follow-up unless clinically jeremaih anted. MARTI KAUR MD Narrative 06/15/2018 10:41 AM TOURIST AGENT ULTRASOUND PELVIS COMPLETE WITHOUT TRANSVAGINAL IMAGING ??06/15/2018 9:40 AM HISTORY: Large nabothian cyst on MRI, fu rther characterization. Nabothian cyst. COMPARISON: MRI bony pelvis 05/22/2018. FINDINGS: Transabdominal imaging is perf ormed. The uterus is normal in size measuring 8 .2 x 4.1 x 2.4 cm. No fibroids are evident. Endometrial stripe measures 6 mm and is mildly thickened for patient's age. A large simple-appear ing nabothian cyst is noted in the region of the cervix measuring 3.2 x 3.4 x 2.0 cm and corresponds to the cystic lesion described on prior MRI of the bony pelvis. The right ovary measures 2.0 x 1.3 x 0.9 cm. No cyst or mass is appreciated. The left ovary measures 2.1 x 1.2 x 1.3 cm. No evidence of a cyst or mass. The ovaries demonstra te normal color Doppler flow bilaterally. No adnexal masses are prese nt. No free pelvic fluid is present. Procedure Note Marti Kaur MD - 06/15/2018Form atting of this note might be different from the original. ULTRASOUND PELVIS COMPLETE WITHOUT TRANS VAGINAL IMAGING 06/15/2018 9:40 AM HISTORY: Large nabothian cyst on MRI, fu rther characterization. Nabothian cyst. COMPARISON: MRI bony pelvis 05/22/2018. FINDINGS: Transabdominal imaging is perf ormed. The uterus is normal in size measuring 8 .2 x 4.1 x 2.4 cm. No fibroids are evident. Endometrial stripe measures 6 mm and is mildly thickened for patient's age. A large simple-appear ing nabothian cyst is noted in the region of the cervix measuring 3.2 x 3.4 x 2.0 cm and corresponds to the cystic lesion described on prior MRI of the bony pelvis. The right ovary measures 2.0 x 1.3 x 0.9 cm. No cyst or mass is appreciated. The left ovary measures 2.1 x 1.2 x 1.3 cm. No evidence of a cyst or mass. The ovaries demonstra te normal color Doppler flow bilaterally. No adnexal masses are prese nt. No free pelvic fluid is present. IMPRESSION: Uterus and ovaries are unrem arkable. Large simple-appearing nabothian cyst in the r egion of the cervix measures 3.4 cm in maximal diameter. No internal debris or wall thickening. No further follow-up unless clinically jeremiah anted. MARTI KAUR MD Lucero Stevenson MD IMG US ORDERABLES documented in this encounter Visit Diagnoses Diagnosis Nabothian cyst Cervicitis and endocervicitis documented in this encounter Care Teams It Risk Advisor Relationship Specialty Start Date End Date Lucero Stevenson PCP - General Pediatrics 10/11/11 04/22/19 MD Annetta Catalino Carballo PCP - Assigned PCP 03/18/18 06/16/18 CARDIOPULMONARY TECHNICIAN ASSISTANT BUYER [address] [place] [address] Chastity Montero MD Dermatology 09/23/14 [address] [place] [address] [facility] 98 [place], [place] [address] Johnnie Alcocer MD Surgeon General Surgery 03/23/17 [address] [facility] 300 [place], [place] [address] Janie Petersen, CHANDLER Clinic Bowling Alley Manager Primary Care - CC 05/03/18 08/09/18 documented as of this encounter
--- OUTSIDE RECORDS SUMMARY | 2022-06-15 13:10 | XMS_ITS | Encounter Summary ---
:1945 Author Organization [place] Address [address] [place] [address] Care Team Providers Name Role Phone Lucero Stevenson MD Primary Care Provider [phone] Chastity Montero MD Unavailable [phone] Johnnie Alcocer MD Unavailable Janie Petersen RN Unavailable Unavailable Catalino Carballo APRN [employer] Unavailable [phone] Reason for Visit Reason Comments Medication Refill warfarin (COUMADIN) 3 MG tab let Encounter Details Date Type Department Care Team Description 05/30/2018 Refill [facility] Lucero Stevenson [facility] Refill Clinic Yarelis Littlejohn MD (warfarin (COUMADIN) 3 4486 [facility] Y MG tablet) [facility] [address] [place] [address] [address] [place] [address] [place] [address] [phone] Social History Tobacco Use Types Packs/Day Years [...] Telephone Encounter - Bri Romo RN - 05/31/2018 8:50 PM DYE AND CHEMICAL COORDINATOR 90 day supply requested. Patient up to date on ACC visits, therapeutic and OV. Bri Cerda RN - [facility] AND CHEMICAL COORDINATOR Telephone Encounter - Patience Woods - 05/31/2018 8:10 AM CST Duplicate. warfarin (COUMADIN) 3 MG tablet was filled on 05/30/2018, qty 30 with 0 refills. AND CHEMICAL COORDINATOR documented in this encounter Plan of Treatment Upcoming Encounters Date Type Specialty Care Team Description 11/15/2022 Virtual Visit Pharm Haylie Gonzalez, [facility] [address] [place] [id number] (Wo rk) 11/15/2022 Virtual Visit [place] [address] [place] [address] [place] [address] (Wo rk) 03/03/2023 Virtual Visit Neurology Erlinda Barber MD [address] [facility] 295 [place], [place] [address] (Wo rk) documented as of this encounter Visit Diagnoses Diagnosis penitentiary current use of anticoagulant t herapy documented in this encounter Care Teams Archeologist Relationship Specialty Start Date End Date Lucero Stevenson PCP - General Pediatrics 10/11/11 04/22/19 MD Annetta Catalino Carballo, PCP - Assigned PCP 03/18/18 06/16/18 KNITTING MACHINE OPERATOR [employer] [address] [place] [address] Chastity Montero MD Dermatology 09/23/14 [address] [facility] 98 [place], [place] [address] Johnnie Alcocer MD Surgeon General Surgery 03/23/17 [address] [facility] [address] [place], [place] [id number] Janie Petersen, CHANDLER Clinic Seed Pelleter Primary Care - CC 05/03/18 08/09/18 documented as of this encounter
--- OUTSIDE RECORDS SUMMARY | 2022-06-15 13:10 | XMS_ITS | Encounter Summary ---
:1945 Author Organization [place] Address [address] [place] [address] Care Team Providers Name Role Phone Lucero Stevenson MD Primary Care Provider [phone] Chastity Montero MD Unavailable [phone] Johnnie Alcocer MD Unavailable Janie Petersen RN Unavailable Unavailable Catalino Carballo APRN MANAGER PROGRAMMING Unavailable [phone] Encounter Details Date Type Department Care Team Description 06/04/2018 Anticoagulation Therapy [facility] pump tender current use of 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 (Primary Dx); Visit Clinic [place] Personal history of pulmonar y embolism [address] [facility] [address] [place] [address] Social History [...] encounter Progress Notes Qing Guy RN - 06/04/2018 3:45 PM CST ANTICOAGULATION FOLLOW-UP Patient Name: Charlette Brush Date: 06/04/2018 Contact Type: Telephone Call received from Yina Diane Home Care nurse, with INR result. Follow up instructions given over the phone to Home Care nurse for warfarin management. SUBJECTIVE: Patient Findings Positives No Problem Findings OBJECTIVE INR Date Value Ref Range Status 06/04/2018 2.3 (A) 0.9 - 1.1 Final ASSESSMENT / PLAN INR assessment THER Recheck INR In: 1 WEEK INR Location Homecare INR Anticoagulation Summary as of 06/04/2018 INR goal 2.0-3.0 Today's INR 2.3 Warfarin maintenance plan 13 mg (3 mg x 1 and 10 mg x 1) on Mon, Fri; 10 mg (10 mg x 1) all other days Full warfarin instructions 13 mg on Mon, Fri; 10 mg all other days Weekly warfarin total 76 mg No change documented Qing Guy RN Plan last modified Qing Guy RN (05/21/2018) Next INR check 06/11/2018 Target end date Indefinite Indications Pulmonary embolism and infarction (H) (Resolved) [I26.99] pump tender current use of 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 [Z79.01] Anticoagulation Episode Summary INR check location Cou[facility]in Clinic Preferred lab Send INR reminders to ANTICOAG CLINIC Comments 7.5mg, 3mg, 6mg & 10mg tabs - devaughn dose / [facility] daily - Michelle [phone]/ APPT CARD ONLY Anticoagulation Care Providers Provider Role Specialty Phone number Lucero Stevenson MD Internal Medicine [phone] See the Encounter Report to view Anticoagulation Flowsheet and Dosing Calendar (Go to Encounters tabin chart review, and find the Anticoagulation Therapy Visit) Qing Guy RN D NUTRITION DIRECTOR documented in this encounter Plan of Treatment Upcoming Encounters Date Type Specialty Care Team Description 11/15/2022 Virtual Visit Pharm Haylie Gonzalez, [facility] [address] [facility] [place] [address] (Wo rk) 11/15/2022 Virtual Visit IM/Peds Yane Barraza MD [address] [facility] [place] [address] (Wo rk) 03/03/2023 Virtual Visit Neurology Erlinda Barber MD [address] [facility] 295 [place] [address] (Wo rk) documented as of this encounter Procedures Procedure Name Priority Date/Time Associated Diagnosis Comme nts INR Routine 06/04/2018 12:07 PM Results for this CHILD NUTRITION DIRECTOR procedure are i n the results section . documented in this encounter Results (ABNORMAL) INR (06/04/2018 12:07 PM CHILD NUTRITION DIRECTOR) P athologist Signature INR 2.3 (A) 0.9 - 1.1 [facility] Specimen (Source) Anatomical Location Collection Method / Collectio n Time Received Time / Laterality Volume Blood specimen (specimen) Lucero Stevenson MD LAB - BLOOD ORDERABLES Performing Organization Address City/State/ZIP Code Phon e Number [facility] [address] [place], [place] [address] documented in this encounter Visit Diagnoses Diagnosis pump tender current use of anticoagulant t herapy - Primary Personal history of pulmonary embolism documented in this encounter Care Teams Stone Engraver Relationship Specialty Start Date End Date Lucero Stevenson PCP - General Pediatrics 10/11/11 04/22/19 MD Annetta Catalino Carballo, PCP - Assigned PCP 03/18/18 06/16/18 MANAGER PUBLIC MANAGER PROGRAMMING 17[address] [place] [address] Chastity Montero MD Dermatology 09/23/14 [address] [facility] 98 [place] [address] Johnnie Alcocer MD Surgeon General Surgery 03/23/17 Lien COOK [facility] 300 [place] [address] Janie Petersen, CHANDLER Clinic Wool Presser Primary Care - CC 05/03/18 08/09/18 documented as of this encounter
--- OUTSIDE RECORDS SUMMARY | 2022-06-15 13:10 | XMS_ITS | Encounter Summary ---
:1945 Author Organization [place] Address [address] [place] [address] Care Team Providers Name Role Phone Lucero Stevenson MD Primary Care Provider [phone] Chastity Montero MD Unavailable [phone] Johnnie Alcocer MD Unavailable Janie Petersen RN Unavailable Unavailable Catalino Carballo APRN HEDIS REVIEW NURSE Unavailable [phone] Reason for Visit Reason Comments WOUND CARE CLINIC Encounter Details Date Type Department Care Team Description 06/05/[address] [facility] Paulo Mccall Pressure ulcer of Wound Clinic Oumou Munson PA-C ischium, left, [address] WOUND HEALING stage IV (H) [address] [place], [place] [address] [address] [place] [address] Social History Tobacco Use Types Packs/Day Years [...] Sign Reading Time Taken Comments Blood Pressure 166/89 06/05/2018 1:45 PM PET HANDLER Pulse 90 06/05/2018 1:45 PM PET HANDLER Temperature 35.9 ??C (96.7 ??F) 06/05/2018 1:45 PM PET HANDLER Respiratory Rate 20 06/05/2018 1:45 PM PET HANDLER Oxygen Saturation - - Inhaled Oxygen Concentration - - Weight - - Height - - Body Mass Index - - documented in this encounter Discharge Instructions Discharge InstructionsWMari goetz RN - 06/05/2018 2:07 PM CST Images from the original note were not included. ?? [facility] WOUND HEALING [place] [address] [place] [address] Appointment Nurse Advisors [phone] ?? Charlette Brush 1945 [facility] ?? Wound Dressing Change:Left Ischial Tuberosity Cleanse wound and surrounding skin with: saline or wound cleanser Cover wound with Silvercel cut to fit the size of the wound Cover wound with pack with gauze and abd pad. Change dressing daily. Wound Dressing Change:When Wound VAC arrives Left Ischial Tuberosity Cleanse inside wound with saline or wound cleanser Skin Care: Use antifungal powder and Skin Prep to klever-wound skin NPWT using black foam to bridge wound to anterior thigh and pressure set to 125mmHg continuous suction. Change dressing MWF. Repositioning: ?? Bed: Reposition pt MINIMALLY every 1-2 hours in bed to relieve pressure and promote perfusion to tissue. (we will try to get you a better mattress) ?? Chair: When up to chair pt should not sit for longer than one hour total before either standing or returning to bed for at least 10 minutes, again to relieve pressure and promote perfusion to tissue. ?? Pt should also sit on a chair cushion when up to the chair. Get from [facility] [phone] A diet high in protein is important for wound healing, we recommend getting 90 grams of protein per day. Taking protein shakes or bars are a good way to get extra protein in your diet. Take multivitamin with zinc and vitamin c ?? Mikhail Mccall PA-C.June 05, 2018 Signing Physician Shiva Dennis M.D. ?? Call us at [phone] if you have any questions about your wounds, have redness or swelling aroundyour wound, have a fever of 101 or greater or if you have any other problems or concerns. We answer the phone Monday through Monday 8 am to 4 pm, please leave a message as we check the voicemail frequently throughout the day. ?? Follow up with Provider - 3 weeks HANDLER documented in this encounter Medications at Time [...] nystatin (MYCOSTATIN) Apply topically 0 8 09/11/2019 094855 UNIT/GM external daily as needed cream NYSTOP 314200 UNIT/GM JOI TOPICALLY AA 60 g 11 [...] NYSTATIN CREAM. (H) warfarin (COUMADIN) 10 TAKE DIRECTED BY 30 tablet 0 04/1706/11/2018 MG tabletIndications: INR CLINIC equipment operator intermodal yard current use of 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 warfarin (COUMADIN) 3 MG TAKE 1 TABLET [...] 1 05/0708/01/2018 MG tabletIndications: this size warfarin equipment operator intermodal yard current use of at this time. 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 documented as of this encounter Progress Notes Mikhail Mccall PA-C - 06/05/2018 2:30 PM CST Images from the original note were not included. [facility] HISTORY OF PRESENT ILLNESS: [...] after TCU and rehab facility. Wound care has been pretty basic, never used NPWT. Had MRI since our last visit which was negative for deeper infection or bone involvement. Has had a lot of trouble getting her dressings to stay in place. Reports that they fall off if she walks aroundor goes to the bathroom. 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 SOCIAL HISTORY: at home with homecare and MANAGER OF MANUFACTURING services MEDICATIONS: Current Outpatient Prescriptions Medication ??? acetaminophen (TYLENOL) 325 MG tablet [...] losartan (COZAAR) 50 MG tablet ??? NYSTOP 859643 UNIT/GM POWD powder ??? omeprazole (PRILOSEC) 40 MG capsule ??? Pediatric Multivitamins-Fl (CHEWABLE MULTIVITE/FLUORIDE PO) ??? triamcinolone (KENALOG) 0.1 % cream ??? warfarin (COUMADIN) 10 MG tablet ??? warfarin (COUMADIN) 3 MG tablet ??? warfarin (COUMADIN) 6 MG tablet ??? warfarin (COUMADIN) 7.5 MG tablet No current facility-administered medications for this encounter. VITALS: BP 166/89 (BP Location: Left arm) Pulse 90 Temp 96.7 ??F (35.9 ??C) (Temporal) Resp 20 PHYSICAL EXAM: GENERAL: Patient is alert and oriented and in no acute distress INTEGUMENTARY: WOUND ASSESSMENT #1: ?? Location: left IT ?? Size: 3.5 cm x 8.7 cm with a depth of 8.8 cm ?? Drainage: copious amount of serosanguinous drainage ?? Wound description: granular with overlying slough PROCEDURE: 4% topical lidocaine was applied to the wound by the SECONDARY SCHOOL TEACHER LIBRARIAN. Patient was determined to be capable of making their own medical decisions and informed consent was obtained. Using a sharp curette a selective debridement of non- viable tissue was performed of >20 cm2 but <40 cm2. Hemostasis was achieved with pressure. The patient tolerated the procedure well. 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 NPWT - continue SilverCel pending delivery 2. Continue protein supplement 3. Call [facility] regarding mattress FOLLOW-UP: 3 weeks MIKHAIL MCCALL PA-C (DYKSTRA) HANDLER documented in this encounter Plan of Treatment Upcoming Encounters Date Type Specialty Care Team Description 11/15/2022 Virtual Visit Haylie Wakefield, [facility] [address] [place] [address] (Wo rk) 11/15/2022 Virtual Visit IM/Peds Yane Barraza MD [address] [facility] [place] [id number] (Wo rk) 03/03/2023 Virtual Visit Neurology Erlinda Barber MD [address] [place] [facility] [address] [place] [address] (Wo rk) documented as of this encounter Visit Diagnoses Diagnosis Pressure ulcer of ischium, left, stage I V (H) documented in this encounter Care Teams Record Keeper Relationship Specialty Start Date End Date Lucero Stevenson PCP - General Pediatrics 10/11/11 04/22/19 MD Annetta Catalino Carballo, PCP - Assigned PCP 03/18/18 06/16/18 ETIQUETTE COACH HEDIS REVIEW NURSE 17[address] [place] [address] Chastity Montero MD Dermatology 09/23/14 [address] [facility] [address] [place], [place] [address] Johnnie Alcocer MD Surgeon General Surgery 03/23/17 [address] [facility] [address] [place], [place] [address] Janie Petersen, CHANDLER Clinic Driver Examiner Primary Care - CC 05/03/18 08/09/18 documented as of this encounter
--- OUTSIDE RECORDS SUMMARY | 2022-06-15 13:10 | XMS_ITS | Encounter Summary ---
:1945 Author Organization [place] Address [address] [place] [address] Care Team Providers Name Role Phone Lucero Stevenson MD Primary Care Provider [phone] Chastity Montero MD Unavailable [phone] Johnnie Alcocer MD Unavailable Janie Petersen RN Unavailable Unavailable Lucero Stevenson MD Unavailable [phone] Lucero Stevenson MD Unavailable [phone] Reason for Visit Reason Onset Date Comments Home Care/Hospice 06/22/2018 Encounter Details Date Type Department Care Team Description 06/22/2018 Telephone [facility] Stefanie Stevenson Home Care/Hospice Yarelis Littlejohn MD [address] [place] [address] [place] [address] [phone] Social History Tobacco Use Types Packs/Day Years [...] Telephone Encounter - Bri Romo RN - 06/22/2018 2:52 PM SPICE MIXER Detailed message left with verbal approval given for Home Care orders requested. Bri Cerda RN - [facility] E MIXER Telephone Encounter - Gisele Reed - 06/22/2018 2:43 PM CST Reason for call: Home Healthcare Reason for Call: Home Health Care Griselda with [facility] called regarding (reason for call): Verbal orders Orders are needed for this patient. 1 Recertification Visit, USP, Home Health Aid, and OT. 1 Recertification Visit PT: NA OT: OT Evaluation and to treat Jail: 3 times a week for 1 week, 7 times a week for 4 weeks Home Health Aid: 1 time a week for 1 week, 2 times a week for 4 weeks Pt Provider: Dr. Stevenson Phone Number Homecare Nurse can be reached at: [phone] Can we leave a detailed message on this number? YES Phone number patient can be reached at: Home number on file [phone] (home) Best Time: any Call taken on 06/22/2018 at 2:43 PM by Gisele Reed Phone number to reach patient: Home number on file [phone] (home) Best Time: any Can we leave a detailed message on this number? Not Applicable E MIXER documented in this encounter Plan of Treatment Upcoming Encounters Date Type Specialty Care Team Description 11/15/2022 Virtual Visit Pharm Haylie Gonzalez, [facility] [address] [facility] [place] [address] (Wo rk) 11/15/2022 Virtual Visit IM/Peds Yane Barraza MD [address] [facility] [address] [place], [place] [phone] (Wo rk) 03/03/2023 Virtual Visit Neurology Erlinda Barber MD [address] [facility] 295 [place], [place] [address] (Wo rk) documented as of this encounter Visit Diagnoses Not on filedocumented in this encounter Care Teams Ict Quality Assurance Engineer Relationship Specialty Start Date End Date Lucero Stevenson PCP - General Pediatrics 10/11/11 04/22/19 MD Annetta Lucero Stevenson PCP - Assigned PCP 06/17/1809/18 MD TOÑO Littlejohn JESSICA [address] [place], [place] [phone] Chastity Montero MD Dermatology 09/23/14 [address] [facility] 98 [place], [place] [address] Johnnie Alcocer MD Surgeon General Surgery 03/23/[address] [place], [place] [address] Janie Petersen, CHANDLER Clinic Tmr Teacher Primary Care - CC 05/03/18 08/09/18 Lucero Stevenson Assigned PCP 06/17/18 11/09/19 MD TOÑO Littlejohn [address] [place] [address] documented as of this encounter
--- OUTSIDE RECORDS SUMMARY | 2022-06-15 13:10 | XMS_ITS | Encounter Summary ---
:1945 Author Organization [place] Address [address] [place] [address] Care Team Providers Name Role Phone Lucero Stevenson MD Primary Care Provider [phone] Chastity Montero MD Unavailable [phone] Johnnie Alcocer MD Unavailable Janie Petersen RN Unavailable Unavailable Lucero Stevenson MD Unavailable [phone] Catalino Carballo APRN LINE PRODUCER Unavailable [phone] Lucero Stevenson MD Unavailable [phone] Encounter Details Date Type Department Care Team Description 06/11/2018 Anticoagulation Therapy [facility] Personal history of pulmonary embolism; Visit Clinic [place] [facility] current use of ant icoagulant therapy [address] [facility] [address] [place] [address] [...] as of this encounter Progress Notes Krystyna Sharp RN - 06/11/2018 1:46 PM CST ANTICOAGULATION FOLLOW-UP CLINIC VISIT Patient Name: Charlette Brush Date: 06/11/2018 Contact Type: Telephone Call received from [facility] nurse, Mariaelena, at [phone]. Denies any new concerns, missed dose, bleeding/bruising. Wound has been healing well. Says that pt is out of her coumadin 10 mg tabs(has all the other strengths), so sent a new rx to the requested pharmacy. Advised to continue same coumadin dosing & watch out on greens intake, then recheck in 1 week. HC nurse agrees to the plan. SUBJECTIVE: Patient Findings Positives No Problem Findings Comments Denies bleeding/bruising or missed dose. OBJECTIVE INR Date Value Ref Range Status 06/11/2018 2.1 (A) 0.9 - 1.1 Final ASSESSMENT / PLAN INR assessment THER Recheck INR In: 1 WEEK INR Location Homecare INR Anticoagulation Summary as of 06/11/2018 INR goal 2.0-3.0 Today's INR 2.1 Warfarin maintenance plan 13 mg (3 mg x 1 and 10 mg x 1) on Mon, Fri; 10 mg (10 mg x 1) all other days Full warfarin instructions 13 mg on Mon, Fri; 10 mg all other days Weekly warfarin total 76 mg No change documented Krystyna Sharp, RN Plan last modified Qing Guy RN (05/21/2018) Next INR check 06/18/2018 Target end date Indefinite Indications Personal history of pulmonary embolism [Z86.711] prison current use of 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 [Z79.01] Anticoagulation Episode Summary INR check location Coumadin Clinic Preferred lab Send INR reminders to ANTICOAG CLINIC Comments 7.5mg, 3mg, 6mg & 10mg tabs - devaughn dose / [facility] daily - Michelle [phone]/ APPT CARD ONLY Anticoagulation Care Providers Provider Role Specialty Phone number Lucero Stevenson MD Internal Medicine [phone] See the Encounter Report to view Anticoagulation Flowsheet and Dosing Calendar (Go to Encounters tabin chart review, and find the Anticoagulation Therapy Visit) Krystyna Sharp, RN THERAPIST documented in this encounter Plan of Treatment Upcoming Encounters Date Type Specialty Care Team Description 11/15/2022 Virtual Visit Pharm Haylie Gonzalez, [facility] [address] [facility] [address] (Wo rk) 11/15/2022 Virtual Visit IM/Peds Yane Barraza MD [address] [facility] [place] [address] (Wo rk) 03/03/2023 Virtual Visit Neurology Erlinda Barber MD [address] [facility] [address] [place] [address] (Wo rk) documented as of this encounter Procedures Procedure Name Priority Date/Time Associated Diagnosis Comme nts INR Routine 06/11/2018 Results for thi s procedure are in the resu lts section. documented in this encounter Results (ABNORMAL) INR (06/11/2018) P athologist Signature INR 2.1 (A) 0.9 - 1.1 [facility] Specimen (Source) Anatomical Location Collection Method / Collectio n Time Received Time / Laterality Volume Blood specimen 06/11/2018 (specimen) Resulting Agency Comment [facility] Lucero Stevenson MD LAB - BLOOD ORDERABLES Performing Organization Address City/State/ZIP Code Phon e Number [facility] [address] [place], [place] [address] documented in this encounter Visit Diagnoses Diagnosis Personal history of pulmonary embolism transactional attorney current use of anticoagulant t herapy documented in this encounter Care Teams Perfect Bind Machine Operator Relationship Specialty Start Date End Date Lucero Stevenson PCP - General Pediatrics 10/11/11 04/22/19 MD Annetta Lucero Stevenson PCP - Assigned PCP 06/17/1809/18 MD TOÑO Littlejohn [address] [place], [place] [phone] Catalino Carballo, PCP - Assigned PCP 03/18/18 06/16/18 SEWER AND CUTTER FINGER BUFF MATERIAL LINE PRODUCER [address] [place] [address] Chastity Montero MD Dermatology 09/23/14 [address] [facility] 98 [place], [place] [address] Johnnie Alcocer MD Surgeon General Surgery 03/23/[address] [place], [place] [phone] Janie Petersen, RN Clinic Patient Registration Manager Primary Care - CC 05/03/18 08/09/18 Lucero Stevenson Assigned PCP 06/17/18 11/09/19 MD TOÑO Littlejohn [address] [place], [place] [phone] documented as of this encounter
--- OUTSIDE RECORDS SUMMARY | 2022-06-15 13:10 | XMS_ITS | Encounter Summary ---
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 [address] [place] (including now)? Sex Assigned at Date Recorded Female 12/24/2018 12:35 PM CDT documented as of this encounter Progress Notes Qing Guy RN - 06/18/2018 5:59 PM CST ANTICOAGULATION FOLLOW-UP Patient Name: Charlette Brush Date: 06/18/2018 Contact Type: Telephone Call received from Yina Rodriguez Home Care nurse, with INR result. Follow up instructions given over the phone to Home Care nurse for warfarin management. 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 [Z79.01] Anticoagulation Episode Summary INR check location Coumadin Clinic Preferred lab Send INR reminders to [facility] Comments 7.5mg, 3mg, 6mg & 10mg tabs - devaughn dose / [facility] daily - Michelle [phone]/ APPT CARD ONLY Anticoagulation Care Providers Provider Role Specialty Phone number Lcuero Stevenson MD Internal Medicine [phone] See the Encounter Report to view Anticoagulation Flowsheet and Dosing Calendar (Go to Encounters tabin chart review, and find the Anticoagulation Therapy Visit) Dosage adjustment made based on physician directed care plan. Qing Guy RN TRI OPERATOR documented in this encounter Plan of Treatment Upcoming Encounters Date Type Specialty Care Team Description 11/15/2022 Virtual Visit Pharm D Haylie Cheung, [facility] [address] [facility] [place] [address] (Wo rk) 11/15/2022 Virtual Visit IM/PedYane Muir MD [address] [facility] [place] [address] (Wo rk) 03/03/2023 Virtual Visit Neurology Erlinda Barber MD [address] [facility] [address] [place] [address] (Wo rk) documented as of this encounter Procedures Procedure Name Priority Date/Time Associated Diagnosis Comme nts INR Routine 06/18/2018 3:21 PM Results f or this BI TRI OPERATOR procedure are i n the results section . 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 t herapy - Primary Personal history of pulmonary embolism documented in this encounter Care Teams Support Technician Relationship Specialty Start Date End Date Lucero Stevenson PCP - General Pediatrics 10/11/11 04/22/19 MD Annetta Lucero Stevenson PCP - Assigned PCP 06/17/1809/18 MD TO[facility] [address] [place], [place] [phone] Chastity Montero MD Dermatology 09/23/14 [address] [facility] [address] [place], [place] [phone] Johnnie Alcocer MD Surgeon General Surgery 03/23/17 [address] [facility] [address] [place], [place] [phone] Janie Petersen, [facility] Curator Of Collections Primary Care - CC 05/03/18 08/09/18 Lucero Stevenson Assigned PCP 06/17/18 11/09/19 MD TOÑO Little[place] [address] [place] [address] documented as of this encounter
--- OUTSIDE RECORDS SUMMARY | 2022-06-15 13:10 | XMS_ITS | Encounter Summary ---
:1945 Author Organization [facility] Address [address] [place] [address] Care Team Providers Name Role Phone Lucero Stevenson MD Primary Care Provider [phone] Chastity Montero MD Unavailable [phone] Johnnie Alcocer MD Unavailable Janie Petersen RN Unavailable Unavailable Catalino Carballo APRN [facility] Unavailable [phone] Reason for Visit Reason Onset Date Comments Home Care/Hospice 05/31/2018 Encounter Details Date Type Department Care Team Description 05/31/2018 Telephone [facility] Stefanie Stevenson ne Home Care/Hospice Yarelis Littlejohn MD [address] [facility] [address] [place] [address] [address] [place] [address] [place] [address] [phone] Social History Tobacco Use Types Packs/Day Years [...] Telephone Encounter - Danni Marcus, RN - 05/31/2018 9:54 AM CST Home care OT, Kristie Bailey, calling to decrease the OT visits to once per week for 4 weeks. Decreasing from 3X/week. 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 Verbal approval given for orders per protocol. Ashli Marcus RN PHONE QUOTATION CLERK documented in this encounter Plan of Treatment Upcoming Encounters Date Type Specialty Care Team Description 11/15/2022 Virtual Visit Pharm D Haylie Cheung, [facility] [address] [place] [address] [address] [place] [phone] (Wo rk) 11/15/2022 Virtual Visit IM/Peds Yane Barraza MD [address] [facility] [address] [place] [phone] (Wo rk) 03/03/2023 Virtual Visit Neurology Erlinda Barber MD [address] [facility] [address] [place], [place] [phone] (Wo rk) documented as of this encounter Visit Diagnoses Not on filedocumented in this encounter Care Teams Computer Systems Designer Relationship Specialty Start Date End Date Lucero Stevenson PCP - General Pediatrics 10/11/11 04/22/19 MD Annetta Catalino Carballo, PCP - Assigned PCP 03/18/18 06/16/18 [employer]ASS [employer] [facility] [address] [place] [address] Chastity Montero MD Dermatology 09/23/14 [address] [facility] [address] [place] [address] Johnnie Alcocer MD Surgeon General Surgery 03/23/17 [address] [facility] [address] [place] [address] Janie Petersen, [facility] Billet Inspector Primary Care - CC 05/03/18 08/09/18 documented as of this encounter
--- OUTSIDE RECORDS SUMMARY | 2022-06-15 13:10 | XMS_ITS | Encounter Summary ---
:1945 Author Organization [facility] Address [address] [place] [address] Care Team Providers Name Role Phone Lucero Stevenson MD Primary Care Provider [phone] Chastity Montero MD Unavailable [phone] Johnnie Alcocer MD Unavailable Janie Petersen RN Unavailable Unavailable Lucero Stevenson MD Unavailable [phone] Lucero Stevenson MD Unavailable Reason for Visit Reason Onset Date Comments Results 06/25/2018 INR Encounter Details Date Type Department Care Team Description 06/25/[address] [facility] Stefaine Stevenson Results (INR) Yarelis Littlejohn MD [address] [place] [address] [place] [address] [phone] Social History Tobacco Use Types Packs/Day Years [...] Telephone Encounter - Danni Marcus RN - 06/25/2018 4:04 PM CST INR nurse is gone for the day. [facility] [place] with [facility] calling in INR result. INR today is 2.5. Coumadin dosing 13 mg Monday and Monday 10 mg all other days. No change in diet or medications. Needs directions for today's dose. Please call directions to Nadya at [phone], [place] to Harapl Marcus RN SETTER Telephone Encounter - Martha Hansen APRN CNP - 06/25/2018 4:04 PM TILESETTER I'm not sure I'm understanding the question. It sounds like her INR is within her goal range (2-3). I recommend giving her the normal Monday dosage 13mg then having INR follow up with her tomorrow SETTER Telephone Encounter - Danni Marcus RN - 06/25/2018 4:04 PM CST Advised Nadya of the orders from provider. Forwarded to INR nurse for review. Ashli Marcus RN SETTER Telephone Encounter - Qing Guy RN - 06/25/2018 4:04 PM CST Spoke to Doris by phone. Instructions given for warfarin management. See Anticoagulation Therapy Visit note from today. Qing Guy RN [facility] SETTER documented in this encounter Plan of Treatment Upcoming Encounters Date Type Specialty Care Team Description 11/15/2022 Virtual Visit Pharm Haylie Gonzalez, [facility] [address] [facility] [place] [address] (Wo rk) 11/15/2022 Virtual Visit IM/Peds Yane Barraza MD [address] [facility] [place] [address] (Wo rk) 03/03/2023 Virtual Visit Neurology Erlinda Barber MD [address] [facility] [address] [place] [address] (Wo rk) documented as of this encounter Visit Diagnoses Not on filedocumented in this encounter Care Teams Wetlands Conservation Laborer Relationship Specialty Start Date End Date Lucero Stevenson PCP - General Pediatrics 10/11/11 04/22/19 MD Annetta Lucero Stevenson PCP - Assigned PCP 06/17/1809/18 MD TOÑO [place] [address] [place] [address] Chastity Montero MD Dermatology 09/23/[address] [place] [address] [address] [place], [place] [phone] Johnnie Alcocer MD Surgeon General Surgery 03/23/17 [address] [facility] [address] [place], [place] [phone] Janie Petersen, [facility] Retail Analyst Primary Care - CC 05/03/18 08/09/18 Lucero Stevenson Assigned PCP 06/17/18 11/09/19 MD TOÑO [place] [address] [place] [phone] documented as of this encounter
--- OUTSIDE RECORDS SUMMARY | 2022-06-15 13:10 | XMS_ITS | Encounter Summary ---
:1945 Author Organization [facility] Address [address] [place] [address] Care Team Providers Name Role Phone Lucero Knox MD Primary Care Provider Chastity Montero MD Unavailable [phone] Johnnie Alcocer MD Unavailable Janie Petersen RN Unavailable Unavailable Catalino Carballo APRN LAY MIDWIFE Unavailable [phone] Reason for Visit Reason Comments RECHECK Encounter Details Date Type Department Care Team Description 05/30/2018 Office Visit [facility] Lucero Knox Pres sure ulcer of ischium, left, stage IV (H) (Primary Dx); Clinic Yarelis Littlejohn MD Nabothian cyst; [address] [facility] [address] Essential hypertension, benign; [address] [facility] Gastroesophageal reflux dise ase without esophagitis; [address] Iron deficiency anemia, unspecified iron deficiency anemia type; [place], [place] [address] Morbid obesity (H); [address] Pre-diabetes; CEFERINO (obstructive sleep apnea); detention current use of 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; Personal histor y of pulmonary embolism Social [...] Sign Reading Time Taken Comments Blood Pressure 128/84 05/30/2018 3:10 PM TRAVEL SPECIALIST Pulse 77 05/30/2018 3:10 PM TRAVEL SPECIALIST Temperature 37.2 ??C (98.9 ??F) 05/30/2018 3:10 PM TRAVEL SPECIALIST Respiratory Rate - - Oxygen Saturation 98% 05/30/2018 3:10 PM TRAVEL SPECIALIST Inhaled Oxygen Concentration - - Weight 165.1 kg (364 lb) 05/30/2018 3:10 PM previous we ight TRAVEL SPECIALIST Height 167.6 cm (5' 6) 05/30/2018 3:10 PM TRAVEL SPECIALIST Body Mass Index 58.75 05/30/2018 3:10 PM TRAVEL SPECIALIST documented in this encounter Patient Instructions Patient InstructionsJoanna Ivey - 05/30/2018 3:00 PM CST I will talk with radiologist about cyst on cervix. Ask wound care clinic if there is more you can be doing to keep the dressing and packing in place. Can call [facility] back about bed and delivery. If you need the acid uzair then use the omeprazole. Qing will send some more after your INR when she decides what is best. Use either the triamcinolone (strongest) or the hydrocortizone they are the same thing so pick one of them. EL SPECIALIST documented in this encounter Progress Notes Lucero Knox MD - 05/30/2018 3:00 PM CST SUBJECTIVE: Charlette Stilessevennithin is a 73 year old female who presents to clinic today for the following health issues: Patient is worried about a cyst that was found on her cervix via MRI recently. She has a TOMOGRAPHIC TECH 3 hoursper day M- and on her own on Sat and Sun. Reports she is concerned about being able to stand up long enough to get things done with stove. She states she is able to do laundry if needed. Wound care nurse is coming out every other day, but packing is coming out everytime she goes to the bathroom. Onlyhas a few hours as it is supposed to be and then otherwise nothing is packed; wound care is aware.She returns to wound clinic and will discuss skin graft. Does have a lot of draining from the wound that smells at times. Has been in contact with [employer] for new cushions; has not heard from them. Is not using pantoprazole or omeprazole; uses them maybe 1-2x per week. Worse in TCU but got much better when back at home. Currently has some physical therapy at home for strengthening she has OT 1-2xper week. Continues to use her CPAP. Problem list and histories reviewed & adjusted, as indicated. Additional history: as documented Patient Active Problem List Diagnosis ??? Essential hypertension, benign ??? Morbid obesity (H) ??? CEFERINO (obstructive sleep apnea) ??? CARDIOVASCULAR SCREENING; LDL GOAL LESS THAN 130 ??? Dermatitis, stasis ??? Health Assisted ??? Binge eating ??? Eczema ??? Pre-diabetes ??? Vitamin D deficiency ??? detention current use of 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 ??? Pressure ulcer of ischium, left, stage IV (H) ??? Physical deconditioning ??? Lymphedema of both lower extremities ??? Personal history of pulmonary embolism Past Surgical History: Procedure Laterality Date ??? CHOLECYSTECTOMY, OPEN 1970 ??? COLONOSCOPY N/A 01/13/2015 Procedure: COLONOSCOPY; Surgeon: Jose Juan Castaneda MD; Location: [facility] OR ? ? TONSILLECTOMY & ADENOIDECTOMY Social History Substance Use Topics ??? Smoking status: Never Smoker ??? Smokeless tobacco: Never Used ??? Alcohol use No Family History Problem Relation Age of Onset ??? Hypertension Mother ??? Thyroid Disease Mother ??? Prostate Cancer Father ??? Skin Cancer Father skin cancer unknown ??? C.A.D. Paternal Grandmother ??? Hypertension Sister ??? Cerebrovascular Disease Maternal Grandmother age 62 ??? Breast Cancer Paternal Aunt x3 ??? GASTROINTESTINAL DISEASE Brother irritable bowel ??? GASTROINTESTINAL DISEASE Sister ciliac disease ??? Diabetes No family hx of ??? Cancer No family hx of No known family hx of skin cancer ??? Colon Cancer No family hx of Current Outpatient Prescriptions Medication Sig Dispense Refill ??? ascorbic acid (VITAMIN C) 500 MG tablet Take 500 mg by mouth ??? atenolol (TENORMIN) 25 MG tablet TAKE 1 TABLET BY MOUTH TWICE DAILY. 30 tablet 0 ??? Calcium Carb-Cholecalciferol (CALCIUM + D3) 600-200 MG-UNIT TABS ??? cetirizine (ZYRTEC) 10 MG tablet Take 10 mg by mouth 2 times daily ??? Cholecalciferol (VITAMIN D PO) Take 2,000 Units by mouth daily ??? desoximetasone (TOPICORT) 0.05 % GEL Apply topically 2 times daily as needed for inflammation oritching ??? furosemide (LASIX) 40 MG tablet TAKE 1 TABLET BY MOUTH EVERY DAY. 30 tablet 0 ??? hydrocortisone 2.5 % ointment Daily as needed 180 g 3 ??? losartan (COZAAR) 100 MG tablet Take 1 tablet (100 mg) by mouth daily 90 tablet 3 ??? METAMUCIL SMOOTH TEXTURE 58.6 % POWD USE 1 TABLESPOON PO DISSOLVED IN JUICE OR WATER UTD 0 ??? NYSTOP 290553 UNIT/GM POWD powder JOI TOPICALLY AA BENEATH BILATERAL BREAST/GROIN FOLDS BID UNTIL RESOLVED. 0 ??? omeprazole (PRILOSEC) 40 MG capsule Take 1 capsule (40 mg) by mouth every morning 30 capsule ??? pantoprazole (PROTONIX) 20 MG EC tablet TAKE 1 TABLET BY MOUTH EVERY DAY. 30 tablet 0 ??? Pediatric Multivitamins-Fl (CHEWABLE MULTIVITE/FLUORIDE PO) ??? SENNA PLUS 8.6-50 MG per tablet TK 1 T PO QD HOLD FOR LOOSE STOOL 0 ??? sorbitol 70 % SOLN solution TK 15 TO 30ML PO QD PRN FOR CONSTIPATION. 0 ??? triamcinolone (KENALOG) 0.1 % cream JOI TOPICALLY AA WITH DRESSING CHANGES D. MIX WITH NYSTATIN CREAM. 0 ??? warfarin (COUMADIN) 10 MG tablet TAKE DIRECTED BY INR CLINIC 30 tablet 0 ??? acetaminophen (TYLENOL) 325 MG tablet Take 325 mg by mouth daily ??? FEROSUL 325 (65 Fe) MG tablet TK 1 T PO QD. 0 ??? warfarin (COUMADIN) 3 MG tablet TAKE DIRECTED BY INR CLINIC 30 tablet 0 ??? warfarin (COUMADIN) 6 MG tablet Take 1 tablet (6 mg) by mouth daily or as directed by INR Hyoroj20 tablet 3 ??? warfarin (COUMADIN) 7.5 MG tablet She is not taking this size warfarin at this time. 50 tablet 1 Allergies Allergen Reactions ??? Cephalexin Hives Keflex - hives ??? Lanolin Other (See Comments) skin irritation ??? Lisinopril Cough ??? Neomycin Other (See Comments) skin irritation ??? Penicillins Hives ??? Bactroban [Mupirocin Calcium] Rash BP Readings from Last 3 Encounters: 05/30/18 128/84 05/16/18 (!) 154/94 05/03/18 105/72 Wt Readings from Last 3 Encounters: 05/30/18 (!) 165.1 kg (364 lb) 05/16/18 (!) 165.3 kg (364 lb 6.7 oz) 05/07/18 (!) 165.3 kg (364 lb 6.4 oz) Labs reviewed in [facility] Reviewed and updated as needed this visit by clinical staff Reviewed and updated as needed this visit by Provider ROS: Constitutional, HEENT, cardiovascular, pulmonary, GI, , musculoskeletal, neuro, skin, endocrine and psych systems are negative, except as otherwise noted. This document serves as a record of the services and decisions personally performed and made by Lucero Knox MD. It was created on her behalf by Joanna Ivey, a trained medical data analyst. The creation of this document is based the provider's statements to the medical data analyst. Joanna Ivey May 30, 2018 3:23 PM OBJECTIVE: BP 128/84 (BP Location: Other (Comment), Patient Position: Right side, Cuff Size: Adult Regular) Pulse 77 Temp 98.9 ??F (37.2 ??C) (Tympanic) Ht 1.676 m (5' 6) Wt (!) 165.1 kg (364 lb) SpO2 98% BMI 58.75 kg/m2 Body mass index is 58.75 kg/(m^2). GENERAL: alert and no distress. Morbidly obese, is able to ambulate a few steps with a walker, otherwise wheelchair bound. NECK: no adenopathy, no asymmetry, masses, or scars and thyroid normal to palpation RESP: lungs clear to auscultation - no rales, rhonchi or wheezes CV: regular rate and rhythm, normal S1 S2, no S3 or S4, no murmur, click or rub ABDOMEN: soft, nontender,and bowel sounds normal. Unable to assess HSM or masses due to body habitus. MS: no gross musculoskeletal defects noted. Lymphedema wraps on BLE. PSYCH: mentation appears normal, affect normal/bright Diagnostic Test Results: No results found for this or any previous visit (from the past 24 hour(s)). ASSESSMENT/PLAN: 3:22-4:03 I spent 41 min face to face with patient over 50% in counseling on issues as detailed below (L89.324) Pressure ulcer of ischium, left, stage IV (H) (primary encounter diagnosis) -- followed by wound clinic, but patient is unable to keep packing in -- advised to ask wound clinic about more options to keep dressing in place -pt has wound nurse coming out daily -- continue with current care plan without changes Plan: triamcinolone (KENALOG) 0.1 % cream, NYSTOP [id number] UNIT/GM POWD powder, Comprehensive metabolic panel (N88.8) Nabothian cyst -- advised patient cyst is benign; however, pelvic exam is not feesable due to being morbidly obese -- will contact radiologist to confirm is benign; otherwise would need to complete pelvic exam -- will also consult with clam dredger for further direction (I10) Essential hypertension, benign -- BP at goal; continue with current medication without changes Plan: atenolol (TENORMIN) 25 MG tablet, furosemide (LASIX) 40 MG tablet, Comprehensive metabolic panel, losartan (COZAAR) 50 MG tablet (K21.9) Gastroesophageal reflux disease without esophagitis -- was using both pantoprazole and omeprazole -- advised patient to just take omeprazole since they are both PPI (D50.9) Iron deficiency anemia, unspecified iron deficiency anemia type -- stable currently; continue to monitor -- recheck labs today Plan: CBC with platelets, Ferritin, Iron and iron binding capacity (E66.01) Morbid obesity (H) -continue to work on diet; is unable to do much exercise due to pressure ulcer (R73.03) Pre-diabetes -- continue to monitor -- A1c recheck today Plan: Hemoglobin A1c (G47.33) CEFERINO (obstructive sleep apnea) -- compliant with CPAP -- continue without changes (Z79.01) intermodal customer service current use of anticoagulant therapy -- reviewed and updated medication list -- patient has INR appt on mon; patient to ask INR nurse about dosing Plan: warfarin (COUMADIN) 3 MG tablet (Z86.711) Personal history of pulmonary embolism -- pt has seen hematology who recommended lifetime anticoagulation. Follow up on Aug 01 for follow up or as needed. The information in this document, created by the medical data analyst for me, accurately reflects the services I personally performed and the decisions made by me. I have reviewed and approved this document for accuracy prior to leaving the patient care area. Lucero Knox MD [facility] EL SPECIALIST documented in this encounter Miscellaneous Notes Addendum Note - Lucero Knox MD - 06/01/2018 5:18 PM TRAVEL SPECIALIST Addended by: LUCERO KNOX on: 06/01/2018 05:18 PM Modules accepted: Orders EL SPECIALIST documented in this encounter Plan of Treatment Upcoming Encounters Date Type Specialty Care Team Description 11/15/2022 Virtual Visit Pharm D Haylie Cheung, [facility] [address] [facility] [place] [address] (Lena max) 11/15/2022 Virtual Visit IM/Peds Yane Barraza MD [address] [facility] [place] [address] (Lena max) 03/03/2023 Virtual Visit Neurology Erlinda Barber MD [address] [facility] [address] [place] [address] (Wo rk) documented as of this encounter Procedures Procedure Name Priority Date/Time Associated Comments Diagnosis IRON AND IRON BINDING Routine 05/30/2018 4:12 PM Iron deficien cy Results for this CAPACITY TRAVEL SPECIALIST anemia, unspecified procedur e are in iron deficiency the results anemia type section. HEMOGLOBIN A1C Routine 05/30/2018 4:12 PM Pre-diabetes Results for this TRAVEL SPECIALIST procedure are i n the results section. FERRITIN Routine 05/30/2018 4:12 PM Iron deficiency Result s for this TRAVEL SPECIALIST anemia, unspecified procedur e are in iron deficiency the results anemia type section. COMPREHENSIVE Routine 05/30/2018 4:12 PM Pressure ulcer of Res ults for this METABOLIC PANEL TRAVEL SPECIALIST ischium, left, procedure are in stage IV (H) the results Essential section. hypertension, benign CBC WITH PLATELETS Routine 05/30/2018 4:12 PM Iron deficiency Results for this TRAVEL SPECIALIST anemia, unspecified procedur e are in iron deficiency the results anemia type section. documented in this encounter Results Hemoglobin A1c (05/30/2018 4:12 PM TRAVEL SPECIALIST) athologist Signature Hemoglobin A1C 5.6 0 - 5.6 % 05/30/2018 [place] 6:51 PM TRAVEL SPECIALIST [facility] Comment: Normal <5.7% Prediabetes 5.7-6.4% ??Diab etes 6.5% or higher - adopted from ADA consensus guidelines. Specimen Anatomical Collection Method Collection Time Receive d Time (Source) Location / / Volume Laterality Blood specimen 05/30/2018 4:12 PM 018 4:17 (specimen) TRAVEL SPECIALIST PM TRAVEL SPECIALIST Lucero Knox MD LAB - BLOOD ORDERABLES Performing Organization Address City/State/ZIP Code Phon e Number [facility] [address] [place] [address] (ABNORMAL) Comprehensive metabolic panel (05/30/2018 4:12 PM TRAVEL SPECIALIST) athologist Signature Sodium 140 133 - 144 05/31/2018 [place] mmol/L 5:44 PM TRAVEL SPECIALIST [facility] Potassium 4.0 3.4 - 5.3 05/31/2018 [place] mmol/L 5:44 PM [facility] Chloride 104 94 - 109 05/31/2018 [place] mmol/L 5:44 PM [facility] Carbon Dioxide 28 20 - 32 05/31/2018 [place] mmol/L 5:44 PM [facility] Anion Gap 8 3 - 14 05/31/2018 [facility] mmol/L 5:44 PM [facility] Glucose 77 70 - 99 05/31/2018 [facility] mg/dL 5:44 PM [facility] Urea Nitrogen 18 7 - 30 05/31/2018 [place] mg/dL 5:44 PM [facility] Creatinine 0.58 0.52 - 05/31/2018 [facility] 1.04 mg/dL 5:44 PM [facility] GFR Estimate >90 >60 05/31/2018 [place] mL/min/1.7 5:[address] Comment: Non GFR Calc GFR Estimate If >90 >60 mL/min/1.7m2 05/31/2018 5:44 P M [facility] Comment: GFR Calc Calcium 9.2 8.5 - 10.1 05/31/2018 5:44 PM [facility] mg/dL [facility] Bilirubin Total 0.4 0.2 - 1.3 05/31/2018 5:44 PM [facility] mg/dL [facility] Albumin 3.1 (L) 3.4 - 5.0 g/dL 05/31/2018 5:44 PM [facility] Protein Total 7.5 6.8 - 8.8 g/dL 05/31/2018 5:44 PM [facility] Alkaline Phosphatase 79 40 - 150 U/L 05/31/2018 5:44 PM [facility] ALT 13 0 - 50 U/L 05/31/2018 5:44 PM [facility] AST 24 0 - 45 U/L 05/31/2018 5:44 PM [facility] Specimen Anatomical Collection Method Collection Time Receive d Time (Source) Location / / Volume Laterality Blood specimen 05/30/2018 4:12 PM 018 4:17 (specimen) TRAVEL SPECIALIST PM TRAVEL SPECIALIST Lucero Knox MD LAB - BLOOD ORDERABLES Performing Organization Address City/[facility]/ZIP Code Phon e Number [facility] [address] [place] [address] (ABNORMAL) Iron and iron binding capacity (05/30/2018 4:12 PM TRAVEL SPECIALIST) Analysis Performed At Patho logist Time Signature Iron 28 (L) 35 - 180 05/31/2018 [place] ug/dL 4:17 PM TRAVEL SPECIALIST [facility] Iron Binding 329 240 - 430 05/31/2018 [place] Cap ug/dL 4:17 PM TRAVEL SPECIALIST [facility] Iron Saturation 9 (L) 15 - 46 % 05/31/2018 [place] Index 4:17 PM TRAVEL SPECIALIST [facility] Specimen Anatomical Collection Method Collection Time Receive d Time (Source) Location / / Volume Laterality Blood specimen 05/30/2018 4:12 PM 018 4:17 (specimen) TRAVEL SPECIALIST PM TRAVEL SPECIALIST Lucero Knox MD LAB - BLOOD ORDERABLES Performing Organization Address City/[facility]/ZIP Code Phon e Number [facility] [address] [place] [address] Ferritin (05/30/2018 4:12 PM TRAVEL SPECIALIST) P athologist Signature Ferritin 34 8 - 252 05/31/2018 [place] [facility] ng/mL 4:17 PM TRAVEL SPECIALIST [facility] Specimen Anatomical Collection Method Collection Time Receive d Time (Source) Location / / Volume Laterality Blood specimen 05/30/2018 4:12 PM 018 4:17 (specimen) TRAVEL SPECIALIST PM TRAVEL SPECIALIST Lucero Knox MD LAB - BLOOD ORDERABLES Performing Organization Address City/[facility]/ZIP Code Phon e Number [facility] [address] [place] [address] (ABNORMAL) CBC with platelets (05/30/2018 4:12 PM TRAVEL SPECIALIST) Analysis Performed At Patho logist Time Signature WBC 7.4 4.0 - 11.0 05/30/2018 [facility] 10e9/L 4:55 PM TRAVEL SPECIALIST [facility] RBC Count 4.49 3.8 - 5.2 05/30/2018 [facility] 10e12/L 4:55 PM TRAVEL SPECIALIST [facility] Hemoglobin 12.6 11.7 - 05/30/2018 [facility] 15.7 g/dL 4:55 PM TRAVEL SPECIALIST [facility] Hematocrit 39.5 35.0 - 05/30/2018 [facility] 47.0 % 4:55 PM TRAVEL SPECIALIST [facility] MCV 88 78 - 100 05/30/2018 [facility] fl 4:55 PM TRAVEL SPECIALIST [facility] MCH 28.1 26.5 - 05/30/2018 [facility] 33.0 pg 4:55 PM TRAVEL SPECIALIST [facility] MCHC 31.9 31.5 - 05/30/2018 [facility] 36.5 g/dL 4:55 PM TRAVEL SPECIALIST [facility] RDW 15.2 (H) 10.0 - 05/30/2018 [facility] 15.0 % 4:55 PM TRAVEL SPECIALIST [facility] Platelet Count 321 150 - 450 05/30/2018 [facility] 10e9/L 4:55 PM TRAVEL SPECIALIST [facility] Specimen Anatomical Collection Method Collection Time Receive d Time (Source) Location / / Volume Laterality Blood specimen 05/30/2018 4:12 PM 018 4:17 (specimen) TRAVEL SPECIALIST PM TRAVEL SPECIALIST Lucero Knox MD LAB - BLOOD ORDERABLES Performing Organization Address City/State/ZIP Code Phon e Number [facility] [address] [place] [address] documented in this encounter Visit Diagnoses Diagnosis Pressure ulcer of ischium, left, stage I V (H) - Primary Nabothian cyst Cervicitis and endocervicitis Essential hypertension, benign Gastroesophageal reflux disease without esophagitis Esophageal reflux Iron deficiency anemia, unspecified iron deficiency anemia type Morbid obesity (H) Morbid obesity Pre-diabetes Other abnormal glucose CEFERINO (obstructive sleep apnea) Obstructive sleep apnea (adult) (pediatr ic) intermodal customer service current use of anticoagulant t herapy Personal history of pulmonary embolism documented in this encounter Care Teams Room Service Manager Relationship Specialty Start Date End Date Lucero Knox PCP - General Pediatrics 10/11/11 04/22/19 MD Annetta Catalino Carballo, PCP - Assigned PCP 03/18/18 06/16/18 PROVIDER NETWORK MGR LAY MIDWIFE [address] [place] [address] Chastity Montero MD Dermatology 09/23/14 [address] [facility] [address] [place], [place] [id number] Johnnie Alcocer MD Surgeon General Surgery 03/23/17 [address] [facility] [address] [place], [place] [address] Janie Petersen, [facility] Electroless Plater Primary Care - CC 05/03/18 08/09/18 documented as of this encounter
--- OUTSIDE RECORDS SUMMARY | 2022-06-15 13:10 | XMS_ITS | Encounter Summary ---
:1945 Author Organization [place] [facility] Address [address] [place] [address] Care Team Providers Name Role Phone Lucero Stevenson MD Primary Care Provider [phone] Chastity Montero MD Unavailable [phone] Johnnie Alcocer MD Unavailable Janie Petersen RN Unavailable Unavailable Lucero Stevenson MD Unavailable Catalino Carballo APRN CONCRETE CRAFTSMAN Unavailable [phone] Lucero Stevenson MD Unavailable [phone] Reason for Visit Reason Comments Medication Refill warfarin (COUMADIN) 10 MG ta blet Encounter Details Date Type Department Care Team Description 06/11/2018 Refill [facility] Lucero Stevenson [facility] Refill Clinic Yarelis Littlejohn MD (warfarin (COUMADIN) 10 [address] [facility] Y MG tablet) [facility] [address] [place] [address] [address] [place] [address] [place] [address] [phone] Social History Tobacco Use Types Packs/Day Years [...] 05/03/2021 organizations such as restorationism groups, unions, fraMagma HQ or athletic groups, or school groups? How [...] Telephone Encounter - Qing Guy RN - 06/18/2018 5:10 PM CST Prescription for 90 day supply sent. Qing Guy RN LE SERVICE RV TECHNICIAN Telephone Encounter - Marimar Shelton RN - 06/13/2018 9:38 AM CST Routing to INR pool. Ok for 90 day supply? Marimar Shelton RN -- [facility] LE SERVICE RV TECHNICIAN Telephone Encounter - Patience Woods - 06/11/2018 3:01 PM CST Duplicate. warfarin (COUMADIN) 10 MG tablet was filled on 06/11/2018, qty 30 with 1 refills. LE SERVICE RV TECHNICIAN documented in this encounter Plan of Treatment Upcoming Encounters Date Type Specialty Care Team Description 11/15/2022 Virtual Visit Pharm D Haylie Cheung, [facility] [address] [facility] [place] [address] (Lena max) 11/15/2022 Virtual Visit IM/Yane Mathias MD [address] [facility] [place] [address] (Lena max) 03/03/2023 Virtual Visit Neurology Erlinda Barber MD [address] [facility] [address] [place], [place] [id number] (Wo rk) documented as of this encounter Visit Diagnoses Diagnosis superintendent terminal current use of anticoagulant t herapy Personal history of pulmonary embolism documented in this encounter Care Teams Side Door Worker Relationship Specialty Start Date End Date Lucero Stevenson PCP - General Pediatrics 10/11/11 04/22/19 MD Annetta Lucero Stevenson PCP - Assigned PCP 06/17/1809/18 MD TOÑO Littlejohn [address] [place] [address] Catalino Carballo, PCP - Assigned PCP 03/18/18 06/16/18 ASIC ENGINEER CONCRETE CRAFTSMAN [address] [place] [address] Chastity Montero MD Dermatology 09/23/14 [address] [facility] [address] [place], [place] [phone] Johnnie Alcocer MD Surgeon General Surgery 03/23/17 [address] [facility] [address] [place], [place] [address] Janie Petersen, [facility] Grill Cook Primary Care - CC 05/03/18 08/09/18 Lucero Stevenson Assigned PCP 06/17/18 11/09/19 MD TOÑO Littlejohn [address] [place] [address] documented as of this encounter
--- OUTSIDE RECORDS SUMMARY | 2022-06-15 13:10 | XMS_ITS | Encounter Summary ---
:1945 Author Organization [place] Address [address] [place] [address] Care Team Providers Name Role Phone Lucero Stevenson MD Primary Care Provider [phone] Chastity Montero MD Unavailable [phone] Johnnie Alcocer MD Unavailable Janie Petersen RN Unavailable Unavailable Catalino Carballo APRN COMPLETION MANAGER Unavailable [phone] Reason for Visit Reason Onset Date Comments nabothian cyst 06/05/2018 Encounter Details Date Type Department Care Team Description 06/05/2018 Telephone [facility] Stefanie Stevensonothian cyst Yarelis Littlejohn MD [address] [place] [address] EV[place] Santoyo [address] [phone] Social History Tobacco Use Types Packs/Day Years [...] Telephone Encounter - Lucero Stevenson MD - 06/05/2018 7:39 AM PORTUGUESE TUTOR ----- Message from Moustapha Rodriguez MD sent at 06/04/2018 7:37 AM PORTUGUESE TUTOR ----- Regarding: FW: nabothian cyst Good morning; Review of images; 'cyst' does appear associated with -cervix; however, larger than usual Nabothian cyst. Suggest repeat imaging (by ultrasound) in 1-2 months; for -stability and further characterization ARH ----- Message ----- From: Lucero Stevenson MD Sent: 06/01/2018 4:52 PM To: Moustapha Rodriguez MD Subject: nabothian cyst Hi Dr. Rodriguez, This patient recently had an MRI due to a very large pressure wound. On the MRI they noted a large nabothian cyst. She is extremely obese, and doing a pelvic exam would be very difficult, especially considering the current pressure ulcer. Im not clear if we need to do further w/u on this cyst basedon the MRI reading. Would you mind looking at the MRI result and giving me your opinion? Thanks, Lucero Stevenson MD UGUESE TUTOR documented in this encounter Plan of Treatment Upcoming Encounters Date Type Specialty Care Team Description 11/15/2022 Virtual Visit Pharm Haylie Gonzalez, [facility] [address] [facility] [place] [address] (Lena max) 11/15/2022 Virtual Visit IM/PedYane Muir MD 1964 [facility] [place] [address] (Lena max) 03/03/2023 Virtual Visit Neurology Erlinda Barber MD [address] [facility] 295 [place] [address] (Wo rk) documented as of this encounter Visit Diagnoses Diagnosis Nabothian cyst - Primary Cervicitis and endocervicitis documented in this encounter Care Teams Nail Galvanizer Relationship Specialty Start Date End Date Lucero Stevenson PCP - General Pediatrics 10/11/11 04/22/19 MD Annetta Catalino Carballo, PCP - Assigned PCP 03/18/18 06/16/18 AUTO LEASING MANAGER COMPLETION MANAGER 1700 [place] [address] Chastity Montero MD Dermatology 09/23/14 420 [facility] 98 [place], [place] [address] Johnnie Alcocer MD Surgeon General Surgery 03/23/17 [address] [facility] 300 [place] [address] Janie Petersen, CH[facility]ER Clinic Twisting Frame Operator Primary Care - CC 05/03/18 08/09/18 documented as of this encounter
--- OUTSIDE RECORDS SUMMARY | 2022-06-15 13:10 | XMS_ITS | Encounter Summary ---
:1945 Author Organization [place] Address [address] [facility] [place] [address] Care Team Providers Name Role Phone Lucero Stevenson MD Primary Care Provider [phone] Chastity Montero MD Unavailable [phone] Johnnie Alcocer MD Unavailable Janie Petersen RN Unavailable Unavailable Catalino Carballo APRN TELEVISION CABINET FINISHER Unavailable [phone] Reason for Visit Reason Onset Date Comments Dme 06/08/2018 Encounter Details Date Type Department Care Team Description 06/08/2018 Telephone [facility] W[facility] Abigail Mccall, [facility] [place] [address] [facility] [address] [address] [place] [address] (Wo rk) Social History Tobacco Use Types [...] encounter Miscellaneous Notes Telephone Encounter - Mari Thumran RN - 06/11/2018 9:51 AM CST Spoke to Patient, she [place] and [place] will proceed with arranging delivery of [place] bed and oyster picker from [facility] CATTLE FARMER Telephone Encounter - Janie Stanford RN - 06/08/2018 11:29 AM CST Kristine Gale, [facility], called regarding request for new mattress [facility]. Patient is concerned with new company supplying mattress to her hospital bed from [facility], would prefer to keep supplies coming from one company if possible. Advised Kristine that I will pass this onto providers, will address likely next business day. CATTLE FARMER documented in this encounter Plan of Treatment Upcoming Encounters Date Type Specialty Care Team Description 11/15/2022 Virtual Visit Pharm Haylie Gonzalez, [facility] [address] [facility] [address] (Wo rk) 11/15/2022 Virtual Visit IM/Peds Yane Barraza MD [address] [facility] [place] [address] (Wo witner) 03/03/2023 Virtual Visit Neurology Erlinda Barber MD 420 [facility] 295 [place] [address] (Wo winter) documented as of this encounter Visit Diagnoses Not on filedocumented in this encounter Care Teams Board Filler Relationship Specialty Start Date End Date Lucero Stevenson PCP - General Pediatrics 10/11/11 04/22/19 MD Annetta Catalino Carballo, PCP - Assigned PCP 03/18/18 06/16/18 SCRAP KETTLE TENDER TELEVISION CABINET FINISHER 1700 [place] [address] Chastity Montero MD Dermatology 09/23/14 420 [facility] 98 [place], [place] [id number] Johnnie Alcocer MD Surgeon General Surgery 03/23/[address] [place], [place] [address] Janie Petersen, [facility] Clinic Physician Credentialing Specialist Primary Care - CC 05/03/18 08/09/18 documented as of this encounter
--- OUTSIDE RECORDS SUMMARY | 2022-06-15 13:10 | XMS_ITS | Encounter Summary ---
:1945 Author Organization [place] Address [address] [place] [address] Care Team Providers Name Role Phone Lucero Stevenson MD Primary Care Provider [phone] Chastity Montero MD Unavailable [phone] Johnnie Alcocer MD Unavailable Janie Petersen RN Unavailable Unavailable Lucero Stevenson MD Unavailable [phone] Lucero Stevenson MD Unavailable [phone] Encounter Details Date Type Department Care Team Description 06/26/2018 Travel Social History Tobacco Use Types Packs/Day [...] D Haylie Cheung, [facility] [address] [facility] [place] [address] (Wo rk) 11/15/2022 Virtual Visit IM/Peds Yane Barraza MD [address] [facility] [place] [id number] (Wo rk) 03/03/2023 Virtual Visit Neurology Erlinda Barber MD [address] [address] [facility] [address] [place] [address] (Wo rk) documented as of this encounter Visit Diagnoses Not on filedocumented in this encounter Care Teams Certified Prosthetist Vice President Relationship Specialty Start Date End Date Lucero Stevenson PCP - General Pediatrics 10/11/11 04/22/19 MD Annetta Lucero Stevenson PCP - Assigned PCP 06/17/1809/18 MD TOÑO Littlejohn JESSICA [address] [place], [place] [phone] Chastity Montero MD Dermatology 09/23/14 [address] [facility] 98 [place], [place] [address] Johnnie Alcocer MD Surgeon General Surgery 03/23/[address] [place], [place] [address] Janie Petersen, [facility] Clinic Dehydrator Operator Primary Care - CC 05/03/18 08/09/18 Lucero Stevenson Assigned PCP 06/17/18 11/09/19 MD TOÑO Littlejohn [address] [place], [place] [id number] documented as of this encounter
--- OUTSIDE RECORDS SUMMARY | 2022-06-15 13:10 | XMS_ITS | Encounter Summary ---
:1945 Author Organization [place] Address [address] [facility] [place] [address] Care Team Providers Name Role Phone Lucero Stevenson MD Primary Care Provider [phone] Chastity Montero MD Unavailable [phone] Johnnie Alcocer MD Unavailable Janie Petersen RN Unavailable Unavailable Lucero Stevenson MD Unavailable Lucero Stevenson MD Unavailable Reason for Visit Reason Comments WOUND CARE CLINIC Encounter Details Date Type Department Care Team Description 06/26/2018 Hospital Encounter [facility] Paulo Vital Pressure ulcer of Wound Clinic Oumou Munson PA-C ischium, left, [address] WOUND HEALING stage IV (H) [address] [place], [place] [address] [address] [place] [address] [phone] Social History Tobacco Use Types Packs/Day Years [...] 05/03/2021 organizations such as gnosticism groups, unions, fraStockLayouts or athletic groups, or school groups? How [...] Sign Reading Time Taken Comments Blood Pressure 147/112 06/26/2018 1:33 PM ANGIOGRAPHY TECHNOLOGIST Pulse 92 06/26/2018 1:33 PM ANGIOGRAPHY TECHNOLOGIST Temperature 36.2 ??C (97.2 ??F) 06/26/2018 1:33 PM ANGIOGRAPHY TECHNOLOGIST Respiratory Rate 18 06/26/2018 1:33 PM ANGIOGRAPHY TECHNOLOGIST Oxygen Saturation - - Inhaled Oxygen Concentration - - Weight - - Height - - Body Mass Index - - documented in this encounter Discharge Instructions Discharge Janie Rizo RN - 06/26/2018 2:08 PM CST Images from the original note were not included. [facility] [place] [address] [place], [place] [address], [facility] [address] Appointment Nurse Advisors [phone] Charlette Brush 1945 Wound Dressing Change:left IT wound until NPWT arrives Cleanse wound and surrounding skin with: soap and water Cover wound with Vashe dampened gauze with gauze covering Change dressing daily and as needed. Cleanse inside wound with saline or wound cleanser Skin Care: Use Skin Prep to klever-wound skin NPWT using black foam and pressure set to 125mmHg continuous suction. Change dressing MWF. Mikhail Vital PA-C. June 26, 2018 Call us at [phone] if you have any questions about your wounds, have redness or swelling aroundyour wound, have a fever of 101 or greater or if you have any other problems or concerns. We answer the phone Monday through Monday 8 am to 4 pm, please leave a message as we check the voicemail frequently throughout the day. Follow up with Provider - 2-3 weeks OGRAPHY TECHNOLOGIST documented in this encounter Medications at Time [...] nystatin (MYCOSTATIN) Apply topically 0 8 09/11/2019 660031 UNIT/GM external daily as needed cream NYSTOP 442206 UNIT/GM JOI TOPICALLY AA 60 g 11 [...] 1 09/201701/07/2019 MG tabletIndications: AND MONDAY. TAKE FPC current use of 10MG BY MOUTH ON [...] 1 05/0708/01/2018 MG tabletIndications: this size warfarin FPC current use of at this time. anticoagulant therapy documented as of this encounter Progress Notes Mikhail Vital PA-C - 06/26/2018 11:59 PM CST Images from the original note were not included. [facility] HISTORY OF PRESENT ILLNESS: [...] she walks aroundor goes to the bathroom. INTERVAL HISTORY: ?? Just received group 2 mattress in the past week ?? Has not started VAC we recommended at last visit as she was required to have mattress first ?? Wound virtually unchanged from last last visit WOUND CARE: [employer] OFFLOADING: has group 2 mattress and offloading gel wheelchair cushion DATE WOUND ACQUIRED: 10/2017 REVIEW OF SYSTEMS: [...] HISTORY: at home with homecare and MANAGER FURNITURE services MEDICATIONS: Current Outpatient Medications Medication ??? [...] losartan (COZAAR) 50 MG tablet ??? NYSTOP 584852 UNIT/GM POWD powder ??? omeprazole (PRILOSEC) 40 MG capsule ??? Pediatric Multivitamins-Fl (CHEWABLE MULTIVITE/FLUORIDE PO) ??? triamcinolone (KENALOG) 0.1 % cream ??? warfarin (COUMADIN) 10 MG tablet ??? warfarin (COUMADIN) 3 MG tablet ??? warfarin (COUMADIN) 6 MG tablet ??? warfarin (COUMADIN) 7.5 MG tablet No current facility-administered medications for this encounter. VITALS: BP (!) 147/112 (BP Location: Left arm) Pulse 92 Temp 97.2 ??F (36.2 ??C) (Temporal) Resp 18 PHYSICAL EXAM: GENERAL: Patient is alert and oriented and in no acute distress INTEGUMENTARY: WOUND ASSESSMENT #1: ?? Location: left IT ?? Size: 4.5 cm x 8.0 cm with a depth of 7.5 cm ?? Drainage: copious amount of serosanguinous drainage ?? Wound description: granular with overlying slough PROCEDURE: 4% topical lidocaine was applied to the wound by the [facility]. Patient was determined to be capable [...] surgical debridement and necrotizing fascitis PLAN: 1. Start NPWT 2. Continue protein supplement 3. Patient is managing moisture and incontinence. Patient's nutritional status shows that Patient iseating properly to promote wound healing. Patient is maintaining a moist wound environment for healing. Patient is on a group two mattress and is repositioning frequently to promote wound healing. FOLLOW-UP: 3 weeks MIKHAIL VITAL PA-C (DYKSTRA) OGRAPHY TECHNOLOGIST documented in this encounter Miscellaneous Notes Addendum Note - Mikhail Vital PA-C - 06/26/2018 11:59 PM ANGIOGRAPHY TECHNOLOGIST Encounter addended by: Mikhail Vital PA-C on: 07/03/2018 2:00 PM Actions taken: Sign clinical note OGRAPHY TECHNOLOGIST Addendum Note - Mikhail Vital PA-C - 06/26/2018 11:59 PM ANGIOGRAPHY TECHNOLOGIST Encounter addended by: Mikhail Vital PA-C on: 07/12/2018 3:36 PM Actions taken: Sign clinical note OGRAPHY TECHNOLOGIST documented in this encounter Plan of Treatment Upcoming Encounters Date Type Specialty Care Team Description 11/15/2022 Virtual Visit Pharm Haylie Gonzalez, [facility] [address] [place] [address] (Wo rk) 11/15/2022 Virtual Visit IM/Peds Yane Barraza MD [address] [facility] [address] [place], [place] [phone] (Wo rk) 03/03/2023 Virtual Visit Neurology Erlinda Barber MD 420 [facility] 295 [place], [place] [phone] (Wo rk) documented as of this encounter Visit Diagnoses Diagnosis Pressure ulcer of ischium, left, stage I V (H) documented in this encounter Care Teams Medieval English Literature Professor Relationship Specialty Start Date End Date Lucero Stevenson PCP - General Pediatrics 10/11/11 04/22/19 MD Annetta Lucero Stevenson PCP - Assigned PCP 06/17/1809/18 MD TOÑO Littlejohn 86[address] [place] [address] Chastity Montero MD Dermatology 09/23/[address] [place] [address] 98 [place], [place] [address] Johnnie Alcocer MD Surgeon General Surgery 03/23/17 [address] [facility] 300 [place] [address] Janie Petersen, CHANDLER Clinic Sand Digger Primary Care - CC 05/03/18 08/09/18 Lucero Stevenson Assigned PCP 06/17/18 11/09/19 MD Annetta [facility] [address] [place] [address] documented as of this encounter
--- OUTSIDE RECORDS SUMMARY | 2022-06-15 13:11 | XMS_ITS | Encounter Summary ---
:1945 Author Organization [place] Address [address] [place] [address] Care Team Providers Name Role Phone Lucero Stevenson MD Primary Care Provider [phone] Chastity Montero MD Unavailable [phone] Johnnie Alcocer MD Unavailable Janie Petersen RN Unavailable Unavailable Catalino Carballo APRN MOBILE NURSE Unavailable [phone] Reason for Visit Reason Comments Medication Refill FEROSUL 325 (65 Fe) MG table t Encounter Details Date Type Department Care Team Description 05/24/2018 Refill [facility] Lucero Stevenson [facility] Refill Clinic Yarelis Littlejohn MD (FEROSUL 325 (65 Fe) MG 3303 [facility] Y tablet) [facility] [address] [place] [address] [address] [place] [address] [place] [address] [phone] Social History Tobacco Use Types Packs/Day Years [...] this encounter Miscellaneous Notes Telephone Encounter - Ligia Cain RN - 05/28/2018 8:13 AM CST Denied. Medication is historical. Pt is seeing PCP 05/30/18- will address at appt. Ligia Small RN BLAST EQUIPMENT OPERATOR Telephone Encounter - Patience Woods - 05/24/2018 9:13 AM CST Medication not listed in current med list or history. Please advise. FEROSUL 325 (65 Fe) MG tablet BLAST EQUIPMENT OPERATOR documented in this encounter Plan of Treatment Upcoming Encounters Date Type Specialty Care Team Description 11/15/2022 Virtual Visit Pharm D Haylie Cheung, [facility] [address] [facility] [place] [address] (Wo rk) 11/15/2022 Virtual Visit [place] [address] [place] [address] [place] [phone] (Wo rk) 03/03/2023 Virtual Visit Neurology Erlinda Barber MD 420 [facility] 295 [place], [place] [address] (Wo rk) documented as of this encounter Visit Diagnoses Not on filedocumented in this encounter Care Teams Cab Worker Relationship Specialty Start Date End Date Lucero Stevenson PCP - General Pediatrics 10/11/11 04/22/19 MD Annetta Catalino Carballo, PCP - Assigned PCP 03/18/18 06/16/18 ACID PURIFIER MOBILE NURSE 1700 [place] [address] Chastity Montero MD Dermatology 09/23/14 420 [facility] 98 [place], [place] [address] Johnnie Alcocer MD Surgeon General Surgery 03/23/17 [address] [facility] 300 [place] [address] Janie Petersen, CHANDLER Clinic Seasonal Greenery Bundler Primary Care - CC 05/03/18 08/09/18 documented as of this encounter
--- OUTSIDE RECORDS SUMMARY | 2022-06-15 13:11 | XMS_ITS | Encounter Summary ---
:1945 Author Organization [place] Address [facility] [place] [address] Care Team Providers Name Role Phone Lucero Stevenson MD Primary Care Provider [phone] Chastity Montero MD Unavailable [phone] Johnnie Alcocer MD Unavailable Janie Petersen RN Unavailable Unavailable Catalino Carballo APRN SHOP SERVICE TECHNICIAN Unavailable [phone] Encounter Details Date Type Department Care Team Description 05/11/2018 Orders Only [facility] Lucero Stevenson NOSIS NOT YET Clinic Yarelis Littlejohn MD DEFINED (Primary Dx) [address] [facility] [address] [place] [address] [address] [place] [address] [place] [address] [phone] Social History Tobacco Use Types Packs/Day Years [...] Cheung, [facility] [address] [place] [address] (Wo rk) 11/15/2022 Virtual Visit IM/Peds Yane Barraza MD [address] [facility] [place] [address] (Wo rk) 03/03/2023 Virtual Visit Neurology Erlinda Barber MD 420 [facility] 295 [place] [address] (Wo rk) documented as of this encounter Procedures Procedure Name Priority Date/Time Associated Diagnosis Comme [facility] MD CERTIFICATION CHILDCARE CENTER ADMINISTRATOR Routine 05/11/2018 DIAGNOSIS NOT YE T DEFINED PATIENT documented in this encounter Results MD CERTIFICATION CHILDCARE CENTER ADMINISTRATOR PATIENT (05/11/2018) Narrative This result has an attachment that is no t available. Lucero Stevenson MD SPECIAL REPORTS documented in this encounter Visit Diagnoses Diagnosis DIAGNOSIS NOT YET DEFINED - Primary documented in this encounter Care Teams Building Rigger Relationship Specialty Start Date End Date Lucero Stevenson PCP - General Pediatrics 10/11/11 04/22/19 MD Annetta Catalino Carballo, PCP - Assigned PCP 03/18/18 06/16/18 COUNTY TAX ASSESSOR SHOP SERVICE TECHNICIAN 17[address] [place] [address] Chastity Montero MD Dermatology 09/23/14 [address] [facility] 98 [place], [place] [address] Johnnie Alcocer MD Surgeon General Surgery 03/23/17 [address] [facility] 300 [place] [address] Janie Petersen, CHANDLER Clinic Print Decorator Primary Care - CC 05/03/18 08/09/18 documented as of this encounter
--- OUTSIDE RECORDS SUMMARY | 2022-06-15 13:11 | XMS_ITS | Encounter Summary ---
:1945 Author Organization [place] Address [address] [place] [address]. [place] [address] Care Team Providers Name Role Phone Lucero Stevenson MD Primary Care Provider [phone] Chastity Montero MD Unavailable [phone] Johnnie Alcocer MD Unavailable Janie Petersen RN Unavailable Unavailable Catalino Carballo APRN RECORDS MANAGEMENT ASSOCIATE Unavailable [phone] Encounter Details Date Type Department Care Team Description 05/11/2018 Medical Correspondence [facility] Scan, REVISION TO PLAN OF [facility] Mgmt Non-Provider CARE [address] [place] [address] Social History Tobacco Use Types Packs/Day [...] [address] [facility] [place] [address] (Wo rk) 11/15/2022 Virtual Visit IM/Peds Yane Barraza MD [address] [facility] [address] [place] [phone] (Wo rk) 03/03/2023 Virtual Visit Neurology Erlinda Barber MD 420 [facility] 295 [place], [place] [address] (Wo rk) documented as of this encounter Visit Diagnoses Not on filedocumented in this encounter Care Teams Regional Economist Relationship Specialty Start Date End Date Lucero Stevenson PCP - General Pediatrics 10/11/11 04/22/19 MD Annetta Catalino Carballo, PCP - Assigned PCP 03/18/18 06/16/18 MACHINE BUILDER RECORDS MANAGEMENT ASSOCIATE [address] [place] [address] Chastity Montero MD Dermatology 09/23/14 420 [facility] 98 [place], [place] [address] Johnnie Alcocer MD Surgeon General Surgery 03/23/[address] [place], [place] [address] Janie Petersen, CHANDLER Clinic Enlisted Aircrew/Aerial Observer/Gunner Primary Care - CC 05/03/18 08/09/18 documented as of this encounter
--- OUTSIDE RECORDS SUMMARY | 2022-06-15 13:11 | XMS_ITS | Encounter Summary ---
:1945 Author Organization [facility] Address [address] [place] [address] Care Team Providers Name Role Phone Lucero Stevenson MD Primary Care Provider Chastity Montero MD Unavailable [phone] Johnnie Alcocer MD Unavailable Janie Petersen RN Unavailable Unavailable Lucero Stevenson MD Unavailable [phone] Catalino Carballo CAREER COORDINATOR MACHINE MILKER Unavailable [phone] Lucero Stevenson MD Unavailable [phone] Danni Marcus RN Unavailable Unavailable Kana Doshi OPTICAL DESIGNER Unavailable Mtm, Ea Complex Unavailable Unavailable Svetlana Osman [facility] Unavailable [phone] Doris Lai MD Primary Care Provider Haylie Cheung [facility] Unavailable [phone] Galdino Valdez MD Unavailable Galdino Valdez MD Primary Care Provider Jaiden Holcomb MD Primary Care Provider [phone] Kendall Joseph MD Unavailable Erlinda Barber MD Unavailable Jaiden Holcomb MD Unavailable Lucero Stevenson MD Primary Care Provider [phone] Doris Lai MD Primary Care Provider Ruth John MD Unavailable Kajal Huggins MD Unavailable Patience Toussaint NP Unavailable Brook Sánchez MD Unavailable Yane Barraza MD Primary Care Provider Osmar Kidd MD Unavailable Erlinda Barber MD Unavailable Yane Barraza MD Primary Care Provider Lenore Alcala MD Unavailable Haylie Cheung [facility] Unavailable [phone] Gaye Patrick RN Unavailable Unavailable Kenya Abernathy APRN MACHINE MILKER Unavailable [phone] Hayley German OD Unavailable [phone] Haylie Cheung [facility] Unavailable [phone] Reason for Visit Reason Comments Medication Refill warfarin (COUMADIN) 6 MG tab let Encounter Details Date Type Department Care Team Description 05/14/2018 Refill [facility] Lucero Stevenson [facility] Refill Clinic Yarelis Littlejohn MD (warfarin (COUMADIN) 6 [address] [facility] Y MG tablet) [facility] [address] [place] [address] [address] [place] [address] [place] [address] [phone] Social History Tobacco Use Types Packs/Day Years [...] Telephone Encounter - Lucero Stevenson MD - 05/14/2018 4:06 PM CDT Script sent. Lucero Stevenson MD Telephone Encounter - Patience Woods - 05/14/2018 3:11 PM CDT Not due for a refill. warfarin (COUMADIN) 6 MG tablet was filled on 05/14/2018, qty 30 with 0 refills. documented in this encounter Plan of Treatment Upcoming Encounters Date Type Specialty Care Team Description 11/15/2022 Virtual Visit Pharm D Haylie Cheung, [facility] [address] [facility] [place] [address] (Wo rk) 11/15/2022 Virtual Visit IM/Peds Yane Barraza MD 3[address] [facility] [place] [address] (Wo rk) 03/03/2023 Virtual Visit Neurology Erlinda Barber MD [address] [facility] 295 [place] [address] (Wo rk) documented as of this encounter Visit Diagnoses Diagnosis [facility] current use of anticoagulant t herapy Pulmonary embolism and infarction (H) documented in this encounter Care Teams Lay Out Technician Relationship Specialty Start Date End Date Lucero Stevenson, PCP - General Pediatrics 10/11/11 Lucero Stevenson, PCP - Assigned PCP 06/17/18 09/18/18 MD TOÑO LOPEZ [address] [place], [place] [id number] Catalino Carballo, PCP - Assigned PCP 03/18/18 06/16/18 CAREER COORDINATOR MACHINE MILKER 1700 [place] [address] Doris Lai MD PCP - General Internal Medicine 04/23/19 05/14/[address] [place] [address] [place] [id number] Galdino Valdez MD PCP - General Family Practice 11/29/19 02/12/20 [address] [place], [place] [id number] Jaiden Holcomb PCP - General Internal Medicine 02/13/2010/03 MD Jayesh [address] [place] [address] [place] [id number] Lucero Stevenson, PCP - General 05/15/19 1 07/23/18 MD TOÑO LOPEZ [address] [place], [place] [id number] Doris Lai MD PCP - General 05/24/19 11/28/[address] [place] [address] [place] [id number] Yane Barraza MD PCP - General Internal Medicine 10/04/21 12/07/[address] [place] [address] [address] [place], [place] [id number] Yane Barraza MD PCP - General Internal Medicine 12/08/[address] [facility] [address] [place], [place] [id number] Chastity Montero MD Dermatology 09/23/[address] [place] [address] 98 [place], [place] [phone] Johnnie Alcocer MD Surgeon General Surgery 03/23/17 [address] [facility] 300 [place] [address] Janie Petersen, CHANDLER [facility] Care Primary Care - CC 05/03/18 9 Coordinator Lucero Stevenson, Assigned PCP 06/17/18 MD TOÑO LOPEZ [address] [place], [place] [phone] Danni Marcus, CHANDLER Personal Advocate & 01/09/1901/17 Liaison (PAL) Kana Doshi LSW [facility] Care Primary Care - CC 03/19/19 05/07/19 Coordinator Fernando, Ea Complex 04/23/19 Svetlana Osman, Pharmacist Pharmacotherapy 04/23/19 [facility] [address] [place], [place] [id number] Haylie Cheung, Pharmacist Pharmacist 09/11/19 [facility] [address] [place] [address] Galdino Valdez MD Assigned PCP 11/10/19 05/23/20 [address] [place], [place] [id number] Opal, Assigned Sleep 05/08/20 03/27/21 Kendall Meehan MD Provider [address] [place], [place] [address] Erlinda Barber MD Assigned Neuroscience 05/08/20 01/26/21 420 [facility] [address] [place] [address] Jaiden Holcomb Assigned PCP 05/24/20 MD Jayesh 909 [place] [address] Ruth John MD Assigned Infectious 01/29/21 07/03/21 [facility] INFECTIOUS Disease Provider [facility] [address] [place] [address] [address] [place] [address] Kajal Huggins MD Assigned Neuroscience 01/29/21 10/23/[address] [place] [address] Provider [address] [place] [address] Patience Toussaint NP Assigned Surgical 01/29/21 02/11/[address] [place] [address] Provider [address] [place] [address] Brook Sánchez MD Assigned Infectious 07/04/21 [address] [facility] [address] [place] [address] Osmar Kidd MD Assigned Sleep 09/26/[address] [place] [address] Erlinda Barber MD Assigned Neuroscience 10/24/21 420 [facility] 295 [place] [address] Lenore Alcala MD Assigned Heart and 12/18/21 01/21/22 [address] [facility] Vascular Provider [address] [place] [address] Haylie Cheung, Assigned MTM 01/08/22 [facility] Pharmacist [address] [place] [address] [id number] Gaye Patrick, RN Personal Advocate & 01/18/22 Liaison (PAL) Kenya Abernathy APRN Assigned Heart and 01/22/22 MACHINE MILKER Vascular Provider [address] [place] [address] Hayley German, Assigned Surgical 02/12/22 OD Provider [address]305 [facility] [place] [address] Haylie Cheung, Assigned MTM 04/13/22 [facility] Pharmacist [address] [place] [id number] documented as of this encounter
--- OUTSIDE RECORDS SUMMARY | 2022-06-15 13:11 | XMS_ITS | Encounter Summary ---
:1945 Author Organization [facility] Address [address] [place] [address] Care Team Providers Name Role Phone Lucero Stevenson MD Primary Care Provider [phone] Chastity Montero MD Unavailable [phone] Johnnie Alcocer MD Unavailable Janie Petersen RN Unavailable Unavailable Lucero Stevenson MD Unavailable [phone] Catalino Carballo APRN AUDIOLOGY DIRECTOR Unavailable [phone] Lucreo Stevneson MD Unavailable [phone] Reason for Visit Reason Onset Date Comments Refill Request 05/23/2018 FEROSUL 325 (65 Fe) MG tablet, furosemide (LASIX) 40 MG tablet Encounter Details Date Type Department Care Team Description 05/23/2018 Refill M [facility] Lucero Stevenson ll Request (FEROSUL Clinic Yarelis Littlejohn MD 325 (65 Fe) MG tablet, 3305 [facility] Y furosemide (LASIX) [address] [place] [address] RD MG tablet) [address] [place] [address] [place] [address] [phone] Social History Tobacco Use Types Packs/Day Years [...] Telephone Encounter - Ligia Cain RN - 05/25/2018 10:10 AM ACQUISITIONS ASSISTANT Lasix 40 mg Last Written Prescription Date: 04/27/18 Last Fill Quantity: 30, # refills: 0 Last office visit: 05/03/2018 with prescribing provider: Dr Machado Future Office Visit: Next 5 appointments (look out 90 days) May 30, 2018 3:00 PM ACQUISITIONS ASSISTANT Office Visit with Lucero Stevenson MD [facility] [address] [facility] [address] [facility] [address] Jun 05, 2018 1:45 PM ACQUISITIONS ASSISTANT Return Visit with Nuvia Mccall PA-C [facility] [place] ([facility]) [address] [place] [address] [address] [facility] [address] Requested Prescriptions Pending Prescriptions Disp Refills ??? furosemide (LASIX) 40 MG tablet 30 tablet 0 Diuretics (Including Combos) Protocol Failed 05/23/2018 10:04 AM Failed - Blood pressure under 140/90 in past 12 months BP Readings from Last 3 Encounters: 05/16/18 (!) 154/94 05/03/18 105/72 10/28/17 139/75 Passed - Recent (12 mo) or future [...] past 12 months Recent Labs Lab Test 10/28/17 1515 CR 0.48* Passed - Normal serum potassium on file in past 12 months Passed - Normal serum sodium on file in past 12 months Recent Labs Lab Test 10/28/17 1515 NA 138 Passed - No positive test in past 12 months Ferosul 325mg Routing refill request to provider for review/approval because: Medication is reported/historical ISITIONS ASSISTANT Telephone Encounter - Edelmira Hinojosa - 05/23/2018 10:01 AM CST Patient states she has 5 tablets left of both medications. Patient needs enough to hold her over until her appointment on 05/[address] Stevenson. Requested Prescriptions Pending Prescriptions Disp Refills ??? furosemide (LASIX) 40 MG tablet 30 tablet 0 There is no refill protocol information for this order ??? FEROSUL 325 (65 Fe) MG tablet 100 tablet 0 There is no refill protocol information for this order Edelmira Hinojosa [facility] - TC/FD 05/23/2018 10:03 AM ISITIONS ASSISTANT documented in this encounter Plan of Treatment Upcoming Encounters Date Type Specialty Care Team Description 11/15/2022 Virtual Visit Pharm D Haylie Cheung, [facility] 14[address] [facility] [place] [address] (Lena max) 11/15/2022 Virtual Visit IM/Peds Yane Barraza MD 3305 [facility] [place] [address] (Lena max) 03/03/2023 Virtual Visit Neurology Erlinda Barber MD 420 [facility] 295 [place] [address] (Lena max) documented as of this encounter Visit Diagnoses Diagnosis Essential hypertension, benign documented in this encounter Care Teams Plaster Tender Relationship Specialty Start Date End Date Lucero Stevenson PCP - General Pediatrics 10/11/11 04/22/19 MD Annetta Lucero Stevenson PCP - Assigned PCP 06/17/1809/18 MD TOÑO Littlejohn [place] [address] [place], [place] [phone] Catalino Carballo, PCP - Assigned PCP 03/18/18 06/16/18 CARDROOM ATTENDANT AUDIOLOGY DIRECTOR 1700 [place] [address] Chastity Montero MD Dermatology 09/23/14 [address] [facility] 98 [place], [place] [address] Johnnie Alcocer MD Surgeon General Surgery 03/23/[address] [place], [place] [phone] Janie Petersen, CHANDLER Clinic Primary Mill Roller Primary Care - CC 05/03/18 08/09/18 Lucero Stevenson Assigned PCP 06/17/18 11/09/19 MD TOÑO Littlejohn [place] [address] [place], [place] [phone] documented as of this encounter
--- OUTSIDE RECORDS SUMMARY | 2022-06-15 13:11 | XMS_ITS | Encounter Summary ---
:1945 Author Organization [facility] Address [address] [place] [address] Care Team Providers Name Role Phone Lucero Stevenson MD Primary Care Provider [phone] Chastity Montero MD Unavailable Johnnie Alcocer MD Unavailable Janie Petersen RN Unavailable Unavailable Catalino Carballo APRN WARP YARN SORTER Unavailable [phone] Encounter Details Date Type Department Care Team Description 05/28/2018 Anticoagulation Therapy [facility] Pulmonary embolism and infarction (H); Visit Clinic [place] [facility] current use of ant icoagulant therapy 3305 [...] encounter Progress Notes Krystyna Sharp RN - 05/28/2018 2:30 PM CST ANTICOAGULATION FOLLOW-UP CLINIC VISIT Patient Name: Charlette Brush Date: 05/28/2018 Contact Type: Telephone Call received from [facility] nurse, Michelle, at [phone]. INR today is in range, no concerns from pt. Advised to continue maintenance dosing & recheck in 1 week. SUBJECTIVE: Patient Findings Positives No Problem Findings Comments Denies bleeding/bruising or missed dose. OBJECTIVE INR Date Value Ref Range Status 05/28/2018 2.6 (A) 0.9 - 1.1 Final ASSESSMENT / PLAN INR assessment THER Recheck INR In: 1 WEEK INR Location Homecare INR Anticoagulation Summary as of 05/28/2018 INR goal 2.0-3.0 Today's INR 2.6 Warfarin maintenance plan 13 mg (3 mg x 1 and 10 mg x 1) on Mon, Fri; 10 mg (10 mg x 1) all other days Full warfarin instructions 05/28: 10 mg; Otherwise 13 mg on Mon, Fri; 10 mg all other days Weekly warfarin total 76 mg Plan last modified Qing Guy RN (05/21/2018) Next INR check 06/04/2018 Target end date Indefinite Indications 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] new grad rn current use of anticoagulant therapy [Z79.01] Anticoagulation Episode Summary INR check location Coumadin Clinic Preferred lab Send INR reminders to ANTICOAG CLINIC Comments 7.5mg, 3mg, 6mg & 10mg tabs - devaughn dose / [facility] daily - Michelle [phone]/ APPT CARD ONLY Anticoagulation Care Providers Provider Role Specialty Phone number Lucero Stevenson MD Internal Medicine [phone] See the Encounter Report to view Anticoagulation Flowsheet and Dosing Calendar (Go to Encounters tabin chart review, and find the Anticoagulation Therapy Visit) Krystyna Sharp RN EXECUTIVE documented in this encounter Plan of Treatment Upcoming Encounters Date Type Specialty Care Team Description 11/15/2022 Virtual Visit Pharm D Haylie Cheung, [facility] 14[address] [facility] [place] [address] (Wo rk) 11/15/2022 Virtual Visit IM/Peds Yane Barraza MD [address] [facility] [place] [address] (Wo rk) 03/03/2023 Virtual Visit Neurology Erlinda Barber MD 420 [facility] 295 [place] [address] (Wo rk) documented as of this encounter Procedures Procedure Name Priority Date/Time Associated Diagnosis Comme nts INR Routine 05/28/2018 Results for thi s procedure are in the resu lts section. documented in this encounter Results (ABNORMAL) INR (05/28/2018) P athologist Signature INR 2.6 (A) 0.9 - 1.1 EXTERNAL LAB Specimen (Source) Anatomical Location Collection Method / Collectio n Time Received Time / Laterality Volume Blood specimen 05/28/2018 (specimen) Resulting Agency Comment [facility] Lucero Stevenson MD LAB - BLOOD ORDERABLES Performing Organization Address City/State/ZIP Code Phon e Number EXTERNAL LAB EXTERNAL LAB External Lab documented in this encounter Visit Diagnoses Diagnosis Pulmonary embolism and infarction (H) new grad rn current use of anticoagulant t herapy documented in this encounter Care Teams Wedding Designer Relationship Specialty Start Date End Date Lucero Stevenson PCP - General Pediatrics 10/11/11 04/22/19 MD Annetta Catalino Carballo, PCP - Assigned PCP 03/18/18 06/16/18 HALL TENDER WARP YARN SORTER 1700 [place] [address] Chastity Montero MD Dermatology 09/23/14 420 [facility] 98 [place] [address] Johnnie Alcocer MD Surgeon General Surgery 03/23/17 [address] [facility] 300 [place] [address] Janie Petersen, CHANDLER Clinic Paint Preparer Primary Care - CC 05/03/18 08/09/18 documented as of this encounter
--- OUTSIDE RECORDS SUMMARY | 2022-06-15 13:11 | XMS_ITS | Encounter Summary ---
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 Pt was advised to take 6 mg on M,W, F & 10 mg all other days(weekly 58 mg), but pt took 10 mg onM,W, F & 6 mg all other days(54 mg weekly) by accident. No other concerns. Denies new med or clot sx's. Provided new dosing & advised to recheck her INR on Mon. The HC nurse is aware that the INR nurse is available only till noon that day. So, she will call us before noon. Also, sent a rx for warfarin 6 mg to pharmacy as per her request. SUBJECTIVE: Patient Findings Positives Missed doses Comments Denies bleeding/bruising or missed dose. OBJECTIVE INR Date Value Ref Range Status 05/14/2018 1.6 Final ASSESSMENT / PLAN INR assessment SUB Recheck INR In: 4 DAYS INR Location Homecare INR Anticoagulation Summary as of 05/14/2018 INR goal 2.0-3.0 Today's INR 1.6! Warfarin maintenance plan No maintenance plan Full warfarin instructions 05/14: 10 mg; 05/15: 10 mg; 05/16: 10 mg; 05/17: 6 mg Weekly warfarin total 60 mg Plan last modified Qing Guy, CHANDLER (05/04/2018) Next INR check 05/18/2018 Target end date Indefinite Indications 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] Anticoagulation Episode Summary INR check location Coumadin Clinic Preferred lab Send INR reminders to ANTICOAG CLINIC Comments 7.5mg, 3mg, 6mg & 10mg tabs - devaughn dose / [facility] daily - Michelle [phone]/ APPT CARD ONLY Anticoagulation Care Providers Provider Role Specialty Phone number Lucero Stevenson MD Internal Medicine [phone] See the Encounter Report to view Anticoagulation Flowsheet and Dosing Calendar (Go to Encounters tabin chart review, and find the Anticoagulation Therapy Visit) Krystyna Sharp, RN documented in this encounter Plan of Treatment Upcoming Encounters Date Type Specialty Care Team Description 11/15/2022 Virtual Visit Pharm Haylie Gonzalez, [facility] 14[address] [facility] [place] [address] (Wo rk) 11/15/2022 Virtual Visit IM/Peds Yane Barraza MD [address] [facility] [place] [address] (Wo rk) 03/03/2023 Virtual Visit Neurology Erlinda Barber MD 420 [facility] 295 [place] [address] (Wo rk) documented as of this encounter Procedures Procedure Name Priority Date/Time Associated Diagnosis Comme nts INR Routine 05/14/2018 Results for thi s procedure are in the resu lts section. documented in this encounter Results INR (05/14/2018) P athologist Signature INR 1.6 [facility] Specimen (Source) Anatomical Location Collection Method / Collectio n Time Received Time / Laterality Volume Blood specimen (specimen) Patient Reported LAB - BLOOD ORDERABLES Performing Organization Address City/State/ZIP Code Phon e Number 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 - Primary Pulmonary embolism and infarction (H) documented in this encounter Care Teams Hat Brim Curler Relationship Specialty Start Date End Date Lucero Stevenson PCP - General Pediatrics 10/11/11 04/22/19 MD Annetta Catalino Carballo, PCP - Assigned PCP 03/18/18 06/16/18 WAGON DRILLER FLAT LOCK MACHINE OPERATOR 1700 [place] [address] Chastity Montero MD Dermatology 09/23/14 420 [facility] 98 [place], [place] [address] Johnnie Alcocer MD Surgeon General Surgery 03/23/17 [address] [facility] 300 [place], [place] [address] Janie Petersen, CHANDLER Clinic Blood Bank Laboratory Technologist Primary Care - CC 05/03/18 08/09/18 documented as of this encounter
--- OUTSIDE RECORDS SUMMARY | 2022-06-15 13:11 | XMS_ITS | Encounter Summary ---
:1945 Author Organization [facility] Address [address] [facility] [place] [address] Care Team Providers Name Role Phone Lucero Stevenson MD Primary Care Provider [phone] Chastity Montero MD Unavailable [phone] Johnnie Alcocer MD Unavailable Janie Petersen RN Unavailable Unavailable Lucero Stevenson MD Unavailable [phone] Catalino Carballo LIQUEFIED PETROLEUM GASFITTER DRIP BOX TENDER Unavailable [phone] Lucero Stevenson MD Unavailable [phone] Reason for Visit Reason Onset Date Comments Dme 05/24/2018 cushion and bed orde rs Encounter Details Date Type Department Care Team Description 05/24/2018 Telephone [facility] Nuvia Mccall (cushion and bed Wound Clinic Oumou Munson PA-C orders) [address] WOUND HEALING [address] [facility] [place] [address] [address] [phone] [place], [place] [address] (Wo rk) Social History Tobacco Use Types [...] this encounter Miscellaneous Notes Telephone Encounter - Janie Stanford, RN - 05/24/2018 3:54 PM CST Received phone call from Kate Emerson re: pt's cushion and chair. Cushion will be private pay, patientaware of and will work with that. Also needs group 2 low bariatric air loss bed. Order placed to [facility] for that bed. Order, documentation faxed to [facility]. H PROFESSIONAL ATHLETES documented in this encounter Plan of Treatment Upcoming Encounters Date Type Specialty Care Team Description 11/15/2022 Virtual Visit Pharm D Haylie Cheung, [facility] [address] [facility] [address] [place] [phone] (Wo rk) 11/15/2022 Virtual Visit IM/Peds Yane Barraza MD [address] [facility] [address] [place] [phone] (Wo rk) 03/03/2023 Virtual Visit Neurology Erlinda Barber MD 420 [facility] 295 [place], [place] [address] (Wo rk) documented as of this encounter Visit Diagnoses Diagnosis Pressure injury of buttock, stage 4, uns pecified laterality (H) - Primary documented in this encounter Care Teams Flexible Nanny Relationship Specialty Start Date End Date Lucero Stevenson PCP - General Pediatrics 10/11/11 04/22/19 MD Annetta Lucero Stevenson PCP - Assigned PCP 06/17/1809/18 MD TOÑO Littlejohn [address] [place], [place] [phone] Catalino Carballo, PCP - Assigned PCP 03/18/18 06/16/18 LIQUEFIED PETROLEUM GASFITTER DRIP BOX TENDER 1700 [place] [address] Chastity Montero MD Dermatology 09/23/14 [address] [facility] 98 [place], [place] [phone] Johnnie Alcocer MD Surgeon General Surgery 03/23/17 [address] [facility] [facility] [address] [place], [place] [id number] Janie Petersen, CHANDLER Clinic Hot Stick Man Primary Care - CC 05/03/18 08/09/18 Lucero Stevenson Assigned PCP 06/17/18 11/09/19 MD TOÑO Littlejohn [address] [place], [place] [phone] documented as of this encounter
--- OUTSIDE RECORDS SUMMARY | 2022-06-15 13:11 | XMS_ITS | Encounter Summary ---
:1945 Author Organization [facility] Address [address] [place] [address] Care Team Providers Name Role Phone Lucero Stevenson MD Primary Care Provider [phone] Chastity Montero MD Unavailable [phone] Johnnie Alcocer MD Unavailable Janie Petersen RN Unavailable Unavailable Catalino Carballo APRN CHILDCARE ADMINISTRATOR Unavailable [phone] Reason for Visit Reason Comments Home Care/Hospice Orders for PT Encounter Details Date Type Department Care Team Description 05/29/2018 Documentation Only [facility], Home Care/Hospice Clinic Yarelis Littlejohn, (Orders for PT) [address] [facility]3] [address] [place] [address] [place], [place] [phone] [id number] Social History Tobacco Use Types Packs/Day Years [...] of this encounter Progress Notes Danni Marcus, RN - 05/29/2018 11:34 AM CST Bibi, Physical therapist with [facility] calling, for continued Physical therapy orders for- Once/week X 1 week Twice/week for 3 weeks Once/week for 1 week. Verbal approval given for orders per protocol. No further questions. Will call back if any other questions or concerns. Ashli Marcus RN STANT PROFESSOR OF PHYSICS documented in this encounter Plan of Treatment Upcoming Encounters Date Type Specialty Care Team Description 11/15/2022 Virtual Visit Pharm D Haylie Cheung, [facility] [address] [place] [id number] (Wo rk) 11/15/2022 Virtual Visit [place] [address] [place] [address] [address] [place] [id number] (Wo rk) 03/03/2023 Virtual Visit Neurology Erlinda Barber MD [address] [facility] [address] [place], [place] [id number] (Wo rk) documented as of this encounter Visit Diagnoses Not on filedocumented in this encounter Care Teams Cad Design Engineer Relationship Specialty Start Date End Date Lucero Stevenson PCP - General Pediatrics 10/11/11 04/22/19 MD Annetta Catalino Carballo, PCP - Assigned PCP 03/18/18 06/16/18 BREAKFAST ATTENDANT CHILDCARE ADMINISTRATOR [address] [place] [address] Chastity Montero MD Dermatology 09/23/14 [address] [facility] [address] [place] [address] Johnnie Alcocer MD Surgeon General Surgery 03/23/17 [address] [facility] [address] [place] [address] Janie Petersen, CHANDLER Clinic Account Coordinator Primary Care - CC 05/03/18 08/09/18 documented as of this encounter
--- OUTSIDE RECORDS SUMMARY | 2022-06-15 13:11 | XMS_ITS | Encounter Summary ---
:1945 Author Organization [facility] Address [address] [facility] [place] [address] Care Team Providers Name Role Phone Lucero Stevenson MD Primary Care Provider [phone] Chastity Montero MD Unavailable [phone] Johnnie Alcocer MD Unavailable Janie Petersen RN Unavailable Unavailable Catalino Carballo APRN ASPHALT PAVING SUPERVISOR Unavailable [phone] Reason for Visit Reason Comments WOUND CARE CLINIC Consultation - Closed Specialty Diagnoses / Procedures Referred By Contact Refer red To Contact Diagnoses Pressure injury of sacral region, unstageable (H) Lucero Stevenson, Z[facility] WOUND HE[facility]ING [facility] [address] [facility] [address] [place] [address] [place] [address] Fax: Referral ID Status Reason Start Date Expiration Date Visits Requ ested Visits Authorized [id number] Closed 05/03/2018 05/03/2019 1 1 Encounter Details Date Type Department Care Team Description 05/16/2018 Hospital Encounter [facility] Paulo Mccall Pressure injury of Wound Clinic [place] Munson PA-C left buttock, stage [address] WOUND HEALING 4 (H) (Primary Dx) [address] [place] [address] [address] [address] [place] [address] [phone] Social History Tobacco Use Types Packs/Day Years [...] Sign Reading Time Taken Comments Blood Pressure 154/94 05/16/2018 1:39 PM CDT Pulse 99 05/16/2018 1:39 PM CDT Temperature 36.6 ??C (97.8 ??F) 05/16/2018 1:39 PM CDT Respiratory Rate 18 05/16/2018 1:39 PM CDT Oxygen Saturation - - Inhaled Oxygen Concentration - - Weight 165.3 kg (364 lb 6.7 oz) 05/16/2018 1:39 PM CDT Height 167.6 cm (5' 6) 05/16/2018 1:39 PM CDT Body Mass Index 58.82 05/16/2018 1:39 PM CDT documented in this encounter Discharge Instructions Discharge InstructionsWMari goetz RN - 05/16/2018 2:09 PM CDT Images from the original note were not included. [facility] [place] [address] [facility] [address], [place] [address] Appointment Nurse Advisors [phone] Charlette Brush 1945 [facility] Wound Dressing Change:Left Ischial Tuberosity Cleanse wound and surrounding skin with: saline or wound cleanser Cover wound with Silvercel cut to fit the size of the wound Cover wound with pack with gauze and abd pad. Change dressing daily. Repositioning: ??? Bed: Reposition pt MINIMALLY every 1-2 hours in bed to relieve pressure and promote perfusion totissue. (we will try to get you a better mattress) ??? Chair: When up to chair pt should not sit for longer than one hour total before either standing or returning to bed for at least 10 minutes, again to relieve pressure and promote perfusion to tissue. o Pt should also sit on a chair cushion when up to the chair. Get from [facility] [phone] A diet high in protein is important for wound healing, we recommend getting 90 grams of protein per day. Taking protein shakes or bars are a good way to get extra protein in your diet. Take multivitamin with zinc and vitamin c Mikhail Mccall PA-C. May 16, 2018 Signing Physician Shiva Dennis M.D. Call us at [phone] if you have any questions about your wounds, have redness or swelling aroundyour wound, have a fever of 101 or greater or if you have any other problems or concerns. We answer the phone Monday through Monday 8 am to 4 pm, please leave a message as we check the voicemail frequently throughout the day. Follow up with Provider - 3 weeks Please call [facility] [phone] ([address] [place], [place]) to schedule your appointment if you have not heard from them in two business days. Arrive 15 minutes early. If you need to cancel or change the appointment please call [facility] [phone] ([address]. [place], [place]) documented in this encounter Medications at Time of Discharge Medication Sig Dispensed Refills Start Date End Date cetirizine (ZYRTEC) 10 Take 10 mg by mouth 0 MG tablet 2 times daily acetaminophen (TYLENOL) Take 325 mg by mouth 0 03/17/2019 325 MG tablet daily as needed albuterol (2.5 MG/3ML) Take 1 vial by 0 05/30/2018 0.083% neb solution nebulization every 4 hours as needed for shortness of breath / dyspnea or wheezing ascorbic acid (VITAMIN Take 500 mg by mouth 0 04/30/2020 C) 500 MG tablet daily atenolol (TENORMIN) 25 TAKE 1 TABLET BY 30 tablet 0 018 05/30/2018 MG tabletIndications: MOUTH TWICE DAILY. Essential hypertension, benign Calcium Take 1 tablet by 0 09/11/19 20 Carb-Cholecalciferol mouth daily (CALCIUM + D3) 600-200 MG-UNIT TABS Cholecalciferol (VITAMIN Take 5,000 Units by 0 10/04/2021 D PO) mouth daily desoximetasone Apply topically 2 0 (TOPICORT) 0.05 % GEL times daily as needed for inflammation or itching FEROSUL 325 (65 Fe) MG TK 1 T PO QD. 0 04/26/2018 06/01/2018 tablet furosemide (LASIX) 40 MG TAKE 1 TABLET BY 30 tablet 0 04/2705/30/2018 tabletIndications: MOUTH EVERY DAY. Essential hypertension, benign hydrocortisone 2.5 % Daily as needed 180 g 3 03/27/2017 05/14/2019 ointmentIndications: Dermatitis losartan (COZAAR) 100 MG Take 1 tablet (100 90 tablet 3 05/30/2018 tabletIndications: mg) by mouth daily Essential hypertension, benign METAMUCIL SMOOTH TEXTURE USE 1 TABLESPOON PO 0 05/30/2018 58.6 % POWD DISSOLVED IN JUICE OR WATER UTD nystatin (MYCOSTATIN) Apply topically 0 8 09/11/2019 [id number] UNIT/GM external daily as needed cream NYSTOP [id number] UNIT/GM JOI TOPICALLY AA 0 04/26/20 18 05/30/2018 POWD powder BENEATH BILATERAL BREAST/GROIN FOLDS BID UNTIL RESOLVED. omeprazole (PRILOSEC) 40 Take 1 capsule (40 30 capsule 0 05/201808/01/2018 MG capsuleIndications: mg) by mouth every Gastroesophageal reflux morning disease without esophagitis order for Equipment being ordered: [employer] Order 1 Device 0 05/16/2018 05/30/2018 DMEIndications: Pressure Kate Ki to evaluate for w heelchair cushion needs and pressure mapping. injury of left buttock, Patient is obese weighs 375# and unsure what cushion would properly offload. stage 4 (H) pantoprazole (PROTONIX) TAKE 1 TABLET BY 30 tablet 0 201705/30/2018 20 MG EC MOUTH EVERY DAY. tabletIndications: Gastroesophageal reflux disease without esophagitis Pediatric 0 01/07/2019 Multivitamins-Fl (CHEWABLE MULTIVITE/FLUORIDE PO) SENNA PLUS 8.6-50 MG per TK 1 T PO QD HOLD 0 04/1605/30/2018 tablet FOR LOOSE STOOL sorbitol 70 % SOLN TK 15 TO 30ML PO QD 0 04/27/20 18 05/30/2018 solution PRN FOR CONSTIPATION. triamcinolone (KENALOG) JOI TOPICALLY AA 0 201705/30/2018 0.1 % cream WITH DRESSING CHANGES D. MIX WITH NYSTATIN CREAM. warfarin (COUMADIN) 10 TAKE DIRECTED BY 30 tablet 0 04/1706/11/2018 MG tabletIndications: INR CLINIC 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 of anticoagulant therapy warfarin (COUMADIN) 3 MG TAKE DIRECTED BY 30 tablet 0 05/30/2018 tabletIndications: Long INR CLINIC term current use of anticoagulant therapy warfarin (COUMADIN) 6 MG Take 1 tablet (6 mg) 90 tablet 3 1 08/01/2018 tabletIndications: Long by mouth daily or as term current use of directed by INR anticoagulant therapy, Clinic Pulmonary embolism and infarction (H) warfarin (COUMADIN) 7.5 She is not taking 50 tablet 1 05/0708/01/2018 MG tabletIndications: this size warfarin 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 of at this time. anticoagulant therapy documented as of this encounter Progress Notes Mikhail Mccall PA-C - 05/16/2018 2:58 PM CDT Images from the original note were not included. [facility] [place] HISTORY OF PRESENT ILLNESS: Charlette Brush is a 73 year old female who presents today for a large surgical wound over her left IT. Fell back in October and was down for about three doors before she could get help. Sustained several pressure injuries, including over her left IT and buttocks. Developed secondary necrotizing fasciitis in the area requiring extensive OR debridement. Has had no further imaging/diagnostics since October. Recently discharged home after TCU and rehab facility. Wound care has been pretty basic, never used NPWT. OFFLOADING: regular mattress, basic wheelchair cushion DATE WOUND ACQUIRED: 10/2017 REVIEW OF SYSTEMS: CONSTITUTIONAL: Denies fevers or acute illness ENDOCRINE: Denies diabetes PAST MEDICAL HISTORY: has a past medical history of BENIGN HYPERTENSION (07/30/2003); benign positional vertigo (09/08/2004); Coagulation disorder (H); GERD (gastroesophageal reflux disease); CEFERINO (obstructive sleep apnea); Other lymphedema (11/04/2003); and PULM EMBOLISM/INFARCT NOS (11/20/2001). SOCIAL HISTORY: at home with homecare and [employer] services MEDICATIONS: Current Outpatient Prescriptions Medication ??? acetaminophen (TYLENOL) 325 MG tablet ??? albuterol (2.5 MG/3ML) 0.083% neb solution ??? ascorbic acid (VITAMIN C) 500 MG tablet ??? atenolol (TENORMIN) 25 MG tablet ??? Calcium Carb-Cholecalciferol (CALCIUM + D3) 600-200 MG-UNIT TABS ??? cetirizine (ZYRTEC) 10 MG tablet ??? Cholecalciferol (VITAMIN D PO) ??? desoximetasone (TOPICORT) 0.05 % GEL ??? FEROSUL 325 (65 Fe) MG tablet ??? furosemide (LASIX) 40 MG tablet ??? hydrocortisone 2.5 % ointment ??? losartan (COZAAR) 100 MG tablet ??? METAMUCIL SMOOTH TEXTURE 58.6 % POWD ??? NYSTOP 538320 UNIT/GM POWD powder ??? omeprazole (PRILOSEC) 40 MG capsule ??? order for DME ??? pantoprazole (PROTONIX) 20 MG EC tablet ??? Pediatric Multivitamins-Fl (CHEWABLE MULTIVITE/FLUORIDE PO) ??? SENNA PLUS 8.6-50 MG per tablet ??? sorbitol 70 % SOLN solution ??? triamcinolone (KENALOG) 0.1 % cream ??? warfarin (COUMADIN) 10 MG tablet ??? warfarin (COUMADIN) 3 MG tablet ??? warfarin (COUMADIN) 6 MG tablet ??? warfarin (COUMADIN) 7.5 MG tablet No current facility-administered medications for this encounter. VITALS: BP (!) 154/94 (BP Location: Left arm) Pulse 99 Temp 97.8 ??F (36.6 ??C) (Temporal) Resp 18 Ht 1.676 m (5' 6) Wt (!) 165.3 kg (364 lb 6.7 oz) BMI 58.82 kg/m2 PHYSICAL EXAM: GENERAL: Patient is alert and oriented and in no acute distress INTEGUMENTARY: WOUND ASSESSMENT #1: ?? Location: left IT ?? Size: 4.0 cm x 9.0 cm with a depth of 8.6 cm ?? Drainage: copious amount of serosanguinous drainage ?? Wound description: granular with overlying slough PROCEDURE: Topical 4% lidocaine was applied to the wound. The wound was mechanically debrided. 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 Primary dressing: SilverCel; Secondary dressing: ABD 2. MRI to r/o osteo 3. The patient needs a bariatric semi electric hospital bed for the following reasons:The patient requires positioning of the body in ways not feasible with an ordinary bed due to the pressure ulcers which are expected to last at least 1 month. The patient requires a bed height different than a fixed height hospital bed to permit transfers to a wheelchair. The patient requires changes in body position every 2 hours to offload areas of pressure. The patient is repositioned by caregivers as they are unable to make their own body changes due to body habitus and deconditioning. 4. Patient will need group 2 mattress due to stage 3 ulceration that has failed to improve on a normal mattress despite regular wound cares and repositioning. Patient has impaired sensation and is unable to reposition independently. 5. CRP, ESR, prealbumin and albumin drawn today 6. Order for Handi to assess and provide appropriate offloading cushion FOLLOW-UP: 2 weeks MIKHAIL MCCALL PA-C (DYKSTRA) OR DOT NET DEVELOPER Mari Thurman, RN - 05/16/2018 2:01 PM CDT Patient arrived for wound care visit. Certified Wound Care Nurse time spent evaluating patient record, completed a full evaluation and documented wound(s) & klever-wound skin; provided recommendationbased on treatment plan. Applied dressing, reviewed discharge instructions, patient education, and discussed plan of care with appropriate medical team staff members and patient and/or family members. documented in this encounter Miscellaneous Notes Addendum Note - Mikhail Mccall PA-C - 05/16/2018 11:59 PM CDTEncounter addended by: Mikhail Mccall PA-C on: 05/23/2018 8:34 PM
Actions taken: Pend clinical note OR DOT NET DEVELOPER Addendum Note - Mikhail Mccall PA-C - 05/16/2018 11:59 PM CDTEncounter addended by: Mikhail Mccall PA-C on: 05/27/2018 5:08 PM
Actions taken: Sign clinical note OR DOT NET DEVELOPER documented in this encounter Plan of Treatment Upcoming Encounters Date Type Specialty Care Team Description 11/15/2022 Virtual Visit Pharm D Haylie Cheung, [facility] [address] [facility] [place] [place] [address] (Wo rk) 11/15/2022 Virtual Visit IM/Yane Mathias MD [address] [facility] [place] [id number] (Wo rk) 03/03/2023 Virtual Visit Neurology Erlinda Barber MD [address] [place] [address] [address] [place] [address] (Wo rk) documented as of this encounter Procedures Procedure Name Priority Date/Time Associated Comments Diagnosis PREALBUMIN Routine 05/16/2018 2:31 PM Pressure injury of Res ults for this CDT left buttock, stage procedur e are in 4 (H) the results section. ERYTHROCYTE Routine 05/16/2018 2:31 PM Pressure injury of Res ults for this SEDIMENTATION RATE CDT left buttock, stage pr ocedure are in AUTO 4 (H) the results section. CRP INFLAMMATION Routine 05/16/2018 2:31 PM Pressure injury of Results for this CDT left buttock, stage procedur e are in 4 (H) the results section. ALBUMIN LEVEL Routine 05/16/2018 2:31 PM Pressure injury of Re sults for this CDT left buttock, stage procedur e are in 4 (H) the results section. documented in this encounter Results MR Pelvis Bone wo & w Contrast (05/22/2018 11:17 AM SENIOR DOT NET DEVELOPER) Anatomical Region Laterality Modality Abdomen/Pelvis, SUBRAD MR MSK, UMP MR MSK, UMP MR BODY, Magnetic Resonance SUBRAD MR BODY, RAD MR Specimen (Source) Anatomical Location Collection Method / Collectio n Time Received Time / Laterality Volume Impressions 05/22/2018 4:34 PM SENIOR DOT NET DEVELOPER IMPRESSION: 1. Left buttock decubitus ulcer presenti ng as a subcutaneous gas collection since the communication with the skin is likely compressed by the patient's weight. Edema and contr ast-enhancement around the margins of the wound. 2. No evidence for left ischial tuberosi ty osteomyelitis or abscess. 3. Incidental large nabothian cyst in th e cervix. ALBERT RODRÍGUEZ MD Narrative 05/22/2018 4:34 PM SENIOR DOT NET DEVELOPER MR PELVIS BONE WITH AND WITHOUT CONTRAST May 22, 2018 11:17 AM HISTORY: Nonhealing ulcer left ischial t uberosity. Evaluate for bone infection. TECHNIQUE: Multiplanar multisequence MRI without and with 14 mL Gadavist contrast given IV. COMPARISON: CT pelvis 10/28/2017. FINDINGS: The previous CT showed a very large irregularly marginated collection of gas in the inferior medial buttock subcutaneous fat, likely representing necrotizing fasciiti s. The current exam shows a small residual gas-filled cavity in the deep subcutaneous fat of the posterior inferior left buttock/proximal thigh measuring 3 x 1.5 x 1.5 cm (image 22 of series 8 and image 25 of series 3). This presumably communicates with the skin through a wou nd as reported clinically. Most likely the communication with the s kin and much of the cavity is compressed by the patient's weight. Ther e is soft tissue thickening showing mild edema as well as mild contr ast enhancement surrounding the cavity and extending superiorly up t o the level of the ischial tuberosity. However, there is no evidenc e for significant bone marrow edema or cortical destruction or effacem ent to indicate osteomyelitis at this time. There is underlying bilate ral hamstring origin tendinosis. The remainder of the visuali zed soft tissues about the pelvis appear normal. Visualized interna l pelvic structures show no acute abnormality. There is a cystic radha nge in the expected region of the cervix of the uterus measuring 3 x 2 .2 x 2.6 cm, likely a large nabothian cyst. No free fluid. Procedure Note Albert Rodríguez MD - 05/22/2018Fo rmatting of this note might be different from the original. MR PELVIS BONE WITH AND WITHOUT CONTRAST May 22, 2018 11:17 AM HISTORY: Nonhealing ulcer left ischial t uberosity. Evaluate for bone infection. TECHNIQUE: Multiplanar multisequence MRI without and with 14 mL Gadavist contrast given IV. COMPARISON: CT pelvis 10/28/2017. FINDINGS: The previous CT showed a very large irregularly marginated collection of gas in the inferior medial buttock subcutaneous fat, likely representing necrotizing fasciiti s. The current exam shows a small residual gas-filled cavity in the deep subcutaneous fat of the posterior inferior left buttock/proximal thigh measuring 3 x 1.5 x 1.5 cm (image 22 of series 8 and image 25 of series 3). This presumably communicates with the skin through a wou nd as reported clinically. Most likely the communication with the s kin and much of the cavity is compressed by the patient's weight. Ther e is soft tissue thickening showing mild edema as well as mild contr ast enhancement surrounding the cavity and extending superiorly up t o the level of the ischial tuberosity. However, there is no evidenc e for significant bone marrow edema or cortical destruction or effacem ent to indicate osteomyelitis at this time. There is underlying bilate ral hamstring origin tendinosis. The remainder of the visuali zed soft tissues about the pelvis appear normal. Visualized interna l pelvic structures show no acute abnormality. There is a cystic radha nge in the expected region of the cervix of the uterus measuring 3 x 2 .2 x 2.6 cm, likely a large nabothian cyst. No free fluid. IMPRESSION: 1. Left buttock decubitus ulcer presenti ng as a subcutaneous gas collection since the communication with the skin is likely compressed by the patient's weight. Edema and contr ast-enhancement around the margins of the wound. 2. No evidence for left ischial tuberosi ty osteomyelitis or abscess. 3. Incidental large nabothian cyst in th e cervix. ALBERT RODRÍGUEZ MD Mikhail Mccall PA-C IMG MRI ORDERABLES (ABNORMAL) Erythrocyte sedimentation rate auto (05/16/2018 2:31 PM CDT) P athologist Signature Sed Rate 37 (H) 0 - 30 mm/h 05/16/2018 [facility] 3:20 PM CDT [facility] Specimen Anatomical Collection Method Collection Time Receive d Time (Source) Location / / Volume Laterality Blood specimen 05/16/2018 2:31 PM 018 3:04 (specimen) CDT PM CDT Mikhail Mccall PA-C LAB - BLOOD ORDERABLES Performing Organization Address City/State/ZIP Code Phon e Number M [facility] [address] [address] [phone] [place] [address] [address] [address], [facility] [phone] (ABNORMAL) CRP inflammation (05/16/2018 2:31 PM CDT) Patholo gist Method Time Signature CRP Inflammation 15.1 (H) 0.0 - 8.0 05/16/2018 [facility] mg/L 3:35 PM CDT [facility] Specimen Anatomical Collection Method Collection Time Receive d Time (Source) Location / / Volume Laterality Blood specimen 05/16/2018 2:31 PM 018 3:04 (specimen) CDT PM CDT Mikhail Mccall PA-C LAB - BLOOD ORDERABLES Performing Organization Address City/State/ZIP Code Phon e Number M [facility] [address] [place] [phone] [facility] [address] [place] [address], [place] [phone] (ABNORMAL) Prealbumin (05/16/2018 2:31 PM CDT) P athologist Signature Prealbumin 14 (L) 15 - 45 05/16/2018 [facility] mg/dL 3:35 PM CDT [facility] Specimen Anatomical Collection Method Collection Time Receive d Time (Source) Location / / Volume Laterality Blood specimen 05/16/2018 2:31 PM 018 3:04 (specimen) CDT PM CDT Mikhail Mccall PA-C LAB - BLOOD ORDERABLES Performing Organization Address City/State/ZIP Code Phon e Number M [facility] [address] [place] [address] [phone] [facility] [address] [place] [address], [place] [phone] (ABNORMAL) Albumin level (05/16/2018 2:31 PM CDT) athologist Signature Albumin 2.8 (L) 3.4 - 5.0 05/16/2018 [facility] g/dL 3:35 PM CDT [facility] Specimen Anatomical Collection Method Collection Time Receive d Time (Source) Location / / Volume Laterality Blood specimen 05/16/2018 2:31 PM 018 3:04 (specimen) CDT PM CDT Mikhail Mccall PA-C LAB - BLOOD ORDERABLES Performing Organization Address City/State/ZIP Code Phon e Number M [facility] [address] [place] [address] [phone] [facility] [address] [place] [address], [place] [phone] documented in this encounter Visit Diagnoses Diagnosis Pressure injury of left buttock, stage 4 (H) - Primary Pressure injury of left buttock, stage 4 (H) documented in this encounter Care Teams Captain Airline Pilot Relationship Specialty Start Date End Date Lucero Stevenson PCP - General Pediatrics 10/11/11 04/22/19 MD Annetta Catalino Carballo, PCP - Assigned PCP 03/18/18 06/16/18 MEDICAL INSURANCE CODING SPECIALIST [employer] P[employer]ING SUPERVISOR [address] [place] [address] Chastity Montero MD Dermatology 09/23/14 [address] [facility] [address] [place], [place] [address] Johnnie Alcocer MD Surgeon General Surgery 03/23/17 [address] [facility] [address] [place], [place] [address] Janie Petersen, CHANDLER Clinic Shell Fisherman Primary Care - CC 05/03/18 08/09/18 documented as of this encounter
--- OUTSIDE RECORDS SUMMARY | 2022-06-15 13:11 | XMS_ITS | Encounter Summary ---
:1945 Author Organization [place] Address [address] [place] [address] Care Team Providers Name Role Phone Lucero Stevenson MD Primary Care Provider [phone] Chastity Montero MD Unavailable [phone] Johnnie Alcocer MD Unavailable Janie Petersen RN Unavailable Unavailable Catalino Carballo APRN PREPARATION CENTER COORDINATOR Unavailable [phone] Encounter Details Date Type Department Care Team Description 05/18/2018 Anticoagulation Therapy [facility] 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 (Primary Dx); Visit Clinic [facility] Pulmonary embolism and infar ction (H) [address] [facility] [address] [place] [address] [...] encounter Progress Notes Qing Guy RN - 05/18/2018 11:54 AM CDT ANTICOAGULATION FOLLOW-UP Patient Name: Charlette Brush Date: 05/18/2018 Contact Type: Telephone Call received from [facility] nurse, with INR result. Follow up instructions given over the phone to Home Care nurse for warfarin management. SUBJECTIVE: Patient Findings Positives Unexplained INR or factor level change Comments Adjusting dose after a long stay in TCU. OBJECTIVE INR Date Value Ref Range Status 05/18/2018 1.7 (A) 0.9 - 1.1 Final ASSESSMENT / PLAN INR assessment SUB Recheck INR In: 3 DAYS INR Location Homecare INR Anticoagulation Summary as of 05/18/2018 INR goal 2.0-3.0 Today's INR 1.7! Warfarin maintenance plan No maintenance plan Full warfarin instructions 05/18: 13 mg; 05/19: 10 mg; 05/20: 10 mg Weekly warfarin total 60 mg Plan last modified Qing Guy RN (05/04/2018) Next INR check 05/21/2018 Target end date Indefinite Indications 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] Anticoagulation Episode Summary INR check location [facility] Clinic Preferred lab Send INR reminders to [facility] Comments 7.5mg, 3mg, 6mg & 10mg tabs - devaughn dose / [facility] Home Care daily - Michelle [phone]/ APPT CARD ONLY Anticoagulation Care Providers Provider Role Specialty Phone number Lucero Stevenson MD Internal Medicine [phone] See the Encounter Report to view Anticoagulation Flowsheet and Dosing Calendar (Go to Encounters tabin chart review, and find the Anticoagulation Therapy Visit) Dosage adjustment made based on physician directed care plan. Qing Guy RN documented in this encounter Plan of Treatment Upcoming Encounters Date Type Specialty Care Team Description 11/15/2022 Virtual Visit Pharm Haylie Gonzalez, [facility] [address] [place] [id number] (Wo rk) 11/15/2022 Virtual Visit IM/Peds Yane Barraza MD [address] [facility] [place] [phone] (Wo rk) 03/03/2023 Virtual Visit Neurology Erlinda Barber MD [address] [facility] [address] [place] [address] (Wo rk) documented as of this encounter Procedures Procedure Name Priority Date/Time Associated Diagnosis Comme nts INR Routine 05/18/2018 11:28 AM Results for this CDT procedure are i n the results section . documented in this encounter Results (ABNORMAL) INR (05/18/2018 11:28 AM CDT) P athologist Signature INR 1.7 (A) 0.9 - 1.1 EXTERNAL LAB Specimen (Source) Anatomical Location Collection Method / Collectio n Time Received Time / Laterality Volume Blood specimen (specimen) Resulting Agency Comment [facility] Home Care Lucero Stevenson MD LAB - BLOOD ORDERABLES Performing Organization Address City/State/ZIP Code Phon e Number EXTERNAL LAB EXTERNAL LAB External Lab documented in this encounter Visit Diagnoses Diagnosis termite treater helper current use of anticoagulant t herapy - Primary Pulmonary embolism and infarction (H) documented in this encounter Care Teams Marble Setter Relationship Specialty Start Date End Date Lucero Stevenson PCP - General Pediatrics 10/11/11 04/22/19 MD Annetta Catalino Carballo, JOSS - Assigned PCP 03/18/18 06/16/18 WINDOWS ARCHITECT PREPARATION CENTER COORDINATOR [address] [place] [address] Chastity Montero MD Dermatology 09/23/14 [address] [facility] [address] [place], [place] [address] Johnnie Alcocer MD Surgeon General Surgery 03/23/17 [address] [place] [address] Janie Petersen, CHANDLER Clinic Promotions Director Primary Care - CC 05/03/18 08/09/18 documented as of this encounter
--- OUTSIDE RECORDS SUMMARY | 2022-06-15 13:11 | XMS_ITS | Encounter Summary ---
:1945 Author Organization [place] Address [address] [place] [address]. [place] [address] Care Team Providers Name Role Phone Lucero Stevenson MD Primary Care Provider [phone] Chastity Montero MD Unavailable [phone] Johnnie Alcocer MD Unavailable Janie Petersen RN Unavailable Unavailable Catalino Carballo APRN ASSISTANT PRINTER FLOOR COVERING Unavailable [phone] Encounter Details Date Type Department Care Team Description 05/16/2018 Medical Correspondence [facility] Scan, REVISION TO PLAN OF [facility] Non-Provider CARE [address] [place] [address] Social History Tobacco Use Types Packs/Day [...] WITHIN [facility] [address] [place] [address] (Wo rk) 11/15/2022 Virtual Visit IM/Peds Yane Barraza MD [address] [place] [phone] (Wo rk) 03/03/2023 Virtual Visit Neurology Erlinda Barber MD [address] [facility] [address] [place], [place] [address] (Wo rk) documented as of this encounter Visit Diagnoses Not on filedocumented in this encounter Care Teams C.O.D. Clerk Relationship Specialty Start Date End Date Lucero Stevenson PCP - General Pediatrics 10/11/11 04/22/19 MD Annetta Catalino Carballo, PCP - Assigned PCP 03/18/18 06/16/18 TABULATING SUPERVISOR ASSISTANT PRINTER FLOOR COVERING [address] [place] [address] Chastity Montero MD Dermatology 09/23/14 420 [facility] 98 [place], [place] [address] Johnnie Alcocer MD Surgeon General Surgery 03/23/[address] [place], [place] [address] Janie Petersen, CHANDLER Clinic Cafe Assistant Primary Care - CC 05/03/18 08/09/18 documented as of this encounter
--- OUTSIDE RECORDS SUMMARY | 2022-06-15 13:11 | XMS_ITS | Encounter Summary ---
:1945 Author Organization [place] Address [address] [place] [address] Care Team Providers Name Role Phone Lucero Stevenson MD Primary Care Provider [phone] Chastity Montero MD Unavailable [phone] Johnnie Alcocer MD Unavailable Janie Petersen RN Unavailable Unavailable Catalino Carballo APRN LIFE UNDERWRITER Unavailable [phone] Encounter Details Date Type Department Care Team Description 05/21/2018 Anticoagulation Therapy [facility] Pulmonary embolism and infarction (H); Visit Clinic [place] [facility] current use of ant icoagulant therapy [address] [facility] [address] [place] [address] [...] encounter Progress Notes Qing Guy RN - 05/21/2018 12:23 PM CST ANTICOAGULATION FOLLOW-UP Patient Name: Charlette Brush Date: 05/21/2018 Contact Type: Telephone Call received from [facility] nurse, with INR result. Follow up instructions given over the phone to Home Care nurse for warfarin management. SUBJECTIVE: Patient Findings Positives No Problem Findings OBJECTIVE INR Date Value Ref Range Status 05/21/2018 1.9 (A) 0.9 - 1.1 Final ASSESSMENT / PLAN INR assessment THER Recheck INR In: 1 WEEK INR Location Homecare INR Anticoagulation Summary as of 05/21/2018 INR goal 2.0-3.0 Today's INR 1.9! Warfarin maintenance plan 13 mg (3 mg x 1 and 10 mg x 1) on Mon, Fri; 10 mg (10 mg x 1) all other days Full warfarin instructions 05/21: 13 mg; Otherwise 13 mg on Mon, Fri; 10 mg all other days Weekly warfarin total 76 mg Plan last modified Qing Guy RN (05/21/2018) Next INR check 05/28/2018 Target end date Indefinite Indications 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] senior living current use of anticoagulant therapy [Z79.01] Anticoagulation Episode Summary INR check location Coumadin Clinic Preferred lab Send INR reminders to ANTICOAG CLINIC Comments 7.5mg, 3mg, 6mg & 10mg tabs - devaughn dose / [facility] Home Care daily - Michelle [phone]/ APPT CARD ONLY Anticoagulation Care Providers Provider Role Specialty Phone number Lucero Stevenson MD Internal Medicine [phone] See the Encounter Report to view Anticoagulation Flowsheet and Dosing Calendar (Go to Encounters tabin chart review, and find the Anticoagulation Therapy Visit) Dosage adjustment made based on physician directed care plan. Qing Guy RN ICAL MAKER documented in this encounter Plan of Treatment Upcoming Encounters Date Type Specialty Care Team Description 11/15/2022 Virtual Visit Pharm Haylie Gonzalez, [facility] [address] [place] [address] (Wo rk) 11/15/2022 Virtual Visit IM/Peds Yane Barraza MD [address] [facility] [address] [facility] [address] (Wo rk) 03/03/2023 Virtual Visit Neurology Erlinda Barber MD 420 [facility] [address] [place] [address] (Wo rk) documented as of this encounter Procedures Procedure Name Priority Date/Time Associated Diagnosis Comme nts INR Routine 05/21/2018 11:26 AM Results for this CHEMICAL MAKER procedure are i n the results section . documented in this encounter Results (ABNORMAL) INR (05/21/2018 11:26 AM CHEMICAL MAKER) P athologist Signature INR 1.9 (A) 0.9 - 1.1 EXTERNAL LAB Specimen (Source) Anatomical Location Collection Method / Collectio n Time Received Time / Laterality Volume Blood specimen (specimen) Resulting Agency Comment [facility] Homecare Lucero Stevenson MD LAB - BLOOD ORDERABLES Performing Organization Address City/State/ZIP Code Phon e Number EXTERNAL LAB EXTERNAL LAB External Lab documented in this encounter Visit Diagnoses Diagnosis Pulmonary embolism and infarction (H) senior living current use of anticoagulant t herapy documented in this encounter Care Teams [facility] Relationship Specialty Start Date End Date Lucero Stevenson PCP - General Pediatrics 10/11/11 04/22/19 MD Annetta Catalino Carballo, PCP - Assigned PCP 03/18/18 06/16/18 PIPE COVERER LIFE UNDERWRITER [address] [place] [address] Chastity Montero MD Dermatology 09/23/14 420 [facility] 98 [place] [address] Johnnie Alcocer MD Surgeon General Surgery 03/23/17 [address] [facility] [address] [place] [address] Janie Petersen, CHANDLER Clinic Siding Coreboard Inspector Primary Care - CC 05/03/18 08/09/18 documented as of this encounter
--- OUTSIDE RECORDS SUMMARY | 2022-06-15 13:11 | XMS_ITS | Encounter Summary ---
:1945 Author Organization [place] Address [address] [place] [address]. [place] [address] Care Team Providers Name Role Phone Lucero Stevenson MD Primary Care Provider [phone] Chastity Montero MD Unavailable [phone] Johnnie Alcocer MD Unavailable Janie Petersen RN Unavailable Unavailable Catalino Carballo APRN SCREWDOWN OPERATOR Unavailable [phone] Encounter Details Date Type Department Care Team Description 05/25/2018 Medical Correspondence [facility] Scan, REVISION TO PLAN OF [facility] Mgmt Non-Provider CARE [address] [place] [address] Social History Tobacco Use Types Packs/Day [...] Gonzalez, [facility] [address] [place] [address] (Wo rk) 11/15/2022 Virtual Visit IM/Peds Yane Barraza MD [address] [facility] [facility] [address] [place] [phone] (Wo rk) 03/03/2023 Virtual Visit Neurology Erlinda Barber MD 420 [facility] [address] [place], [place] [address] (Wo rk) documented as of this encounter Visit Diagnoses Not on filedocumented in this encounter Care Teams Programs Manager Relationship Specialty Start Date End Date Lucero Stevenson PCP - General Pediatrics 10/11/11 04/22/19 MD Annetta Catalino Carballo, PCP - Assigned PCP 03/18/18 06/16/18 UNDRAPED ARTIST MODEL SCREWDOWN OPERATOR [address] [place] [address] Chastity Montero MD Dermatology 09/23/14 [address] [facility] 98 [place], [place] [address] Johnnie Alcocer MD Surgeon General Surgery 03/23/[address] [place], [place] [address] Janie Petersen, CHANDLER Clinic Satellite Technician Primary Care - CC 05/03/18 08/09/18 documented as of this encounter
--- OUTSIDE RECORDS SUMMARY | 2022-06-15 13:11 | XMS_ITS | Encounter Summary ---
:1945 Author Organization [place] Address [address] [place] [address] Care Team Providers Name Role Phone Lucero Stevenson MD Primary Care Provider [phone] Chastity Montero MD Unavailable [phone] Johnnie Alcocer MD Unavailable Janie Petersen RN Unavailable Unavailable Catalino Carballo APRN CLINICAL INFORMATION SYSTEMS DIRECTOR Unavailable [phone] Reason for Visit (Routine) - Closed Specialty Diagnoses / Procedures Referred By Contact Refer red To Contact Radiology / Radiology. Diagnoses EPIC ORDER, sb pt Rh Mri Procedures MR PELVIS BONE WWO [address] [place] [address] Phone: Fax: Referral ID Status Reason Start Date Expiration Date Visits Requ ested Visits Authorized [id number] Closed 05/22/2018 05/22/2019 1 1 Encounter Details Date Type Department Care Team Description 05/22/2018 Hospital Encounter [facility] Paulo Mccall Pressure injury of [facility] Imaging ABHISHEK Munson left buttock, stage [address] WOUND HEALING 4 (H) [facility] [id number] [address] [phone] [place] [id number] Social History Tobacco Use Types Packs/Day Years [...] nystatin (MYCOSTATIN) Apply topically 0 8 09/11/2019 [id number] UNIT/GM external daily as needed cream NYSTOP [id number] UNIT/GM JOI TOPICALLY AA 0 04/26/20 18 [...] tablet 0 04/1706/11/2018 MG tabletIndications: INR CLINIC lineworker current use of anticoagulant therapy warfarin (COUMADIN) [...] 1 05/0708/01/2018 MG tabletIndications: this size warfarin retirement current use of at this time. anticoagulant therapy documented as of this encounter Plan of Treatment Upcoming Encounters Date Type Specialty Care Team Description 11/15/2022 Virtual Visit Pharm Haylie Gonzalez, [facility] [address] [place] [address] (Wo rk) 11/15/2022 Virtual Visit IM/Peds Yane Barraza MD [address] [facility] [facility] [facility] [address] [place] [phone] (Wo rk) 03/03/2023 Virtual Visit Neurology Erlinda Barber MD 420 [facility] [address] [place] [address] (Wo rk) documented as of this encounter Procedures Procedure Name Priority Date/Time Associated Comments Diagnosis ISTAT CREATININE Routine 05/22/2018 11:35 AM Pressure injury o f Results for this POCT PALLET ASSEMBLER left buttock, stage procedur e are in 4 (H) the results section. MR PELVIC BONES W/O Routine 05/22/2018 11:17 AM Pressure injur y of Results for this & W CONTRAST PALLET ASSEMBLER left buttock, stage procedur e are in 4 (H) the results section. documented in this encounter Results Creatinine POCT (05/22/2018 11:35 AM PALLET ASSEMBLER) P athologist Signature Creatinine 0.6 0.52 - 05/22/2018 POINT OF CARE 1.04 mg/dL 10:39 AM PALLET ASSEMBLER TEST, HANDHELD METER GFR Estimate >90 >60 05/22/2018 POINT OF CARE mL/min/1.7 10:39 AM PALLET ASSEMBLER TEST, HANDHELD m2 METER GFR Estimate If >90 >60 05/22/2018 POINT OF CARE Black mL/min/1.7 10:39 AM PALLET ASSEMBLER TEST, HANDHELD m2 METER Specimen Anatomical Collection Method Collection Time Receive d Time (Source) Location / / Volume Laterality 05/22/2018 11:35 05/22/2018 AM PALLET ASSEMBLER 10:39 AM PALLET ASSEMBLER Nuvia KHAN - PRASANNA POCT Performing Organization Address City/State/ZIP Code Phon e Number FV POINT OF CARE TEST, HANDHELD METER POINT OF CARE TEST, HANDHELD METER MR Pelvis Bone wo & w Contrast (05/22/2018 11:17 AM PALLET ASSEMBLER) Anatomical Region Laterality Modality Abdomen/Pelvis, SUBRAD MR MSK, UMP MR MSK, UMP MR BODY, Magnetic Resonance SUBRAD MR BODY, RAD MR Specimen (Source) Anatomical Location Collection Method / Collectio n Time Received Time / Laterality Volume Impressions 05/22/2018 4:34 PM PALLET ASSEMBLER IMPRESSION: 1. Left buttock decubitus ulcer presenti ng as a subcutaneous gas collection since the communication with the skin is likely compressed by the patient's weight. Edema and contr ast-enhancement around the margins of the wound. 2. No evidence for left ischial tuberosi ty osteomyelitis or abscess. 3. Incidental large nabothian cyst in th e cervix. ALBERT RODRÍGUEZ MD Narrative 05/22/2018 4:34 PM PALLET ASSEMBLER MR PELVIS BONE WITH AND WITHOUT CONTRAST [...] in th e cervix. ALBERT RODRÍGUEZ MD Nuvia Mccall PA-C IMG MRI ORDERABLES documented in this encounter Visit Diagnoses Diagnosis Pressure injury of left buttock, stage 4 (H) documented in this encounter Administered Medications Inactive Administered Medications - up to 3 most recent administrations Medication Order MAR Action Action Date Dose Rate Site gadobutrol (GADAVIST) injection Given 05/22/2018 10:16 AM PALLET ASSEMBLER 14 mLs 15 mL 15 mL, Intravenous, ONCE, On 05/22/18 at 1015, For 1 dose documented in this encounter Care Teams Religious Ritual Slaughterer Relationship Specialty Start Date End Date Lucero Stevenson PCP - General Pediatrics 10/11/11 04/22/19 MD Annetta Catalino Carballo, PCP - Assigned PCP 03/18/18 06/16/18 MATERIAL WORKER CLINICAL INFORMATION SYSTEMS DIRECTOR [address] [place] [address] Chastity Montero MD Dermatology 09/23/14 420 [facility] 98 [place], [place] [address] Johnnie Alcocer MD Surgeon General Surgery 03/23/[address] [place], [place] [address] Janie Petersen, CHANDLER Clinic Roll Reclaimer Primary Care - CC 05/03/18 08/09/18 documented as of this encounter
--- OUTSIDE RECORDS SUMMARY | 2022-06-15 13:11 | XMS_ITS | Encounter Summary ---
:1945 Author Organization [place] Address [address] [place] [address] Care Team Providers Name Role Phone Lucero Stevenson MD Primary Care Provider [phone] Chastity Montero MD Unavailable Johnnie Alcocer MD Unavailable Janie Petersen RN Unavailable Unavailable Catalino Carballo APRN RELOCATION SERVICES SPECIALIST Unavailable [phone] Reason for Visit Reason Onset Date Comments Medication Question 05/14/2018 Warfarin dosing Encounter Details Date Type Department Care Team Description 05/14/2018 Telephone [facility] Lucero Stevenson [facility] cation Question Clinic Yarelis Littlejohn MD (Warfarin dosing) [address] [place] [address] [place] [address] [phone] Social History Tobacco Use Types Packs/Day Years [...] encounter Miscellaneous Notes Telephone Encounter - Qing Guy, RN - 05/15/2018 10:49 AM CDT Prescription re-done and sent to pharmacy. CHANDLER [facility] Anticoagulation (INR) Clinic Telephone Encounter - Danni Marcus RN - 05/14/2018 4:44 PM CDT Pharmacy is calling. Per insurance they need clarification of Warfarin dosing-can no longer write as directed. Need a new RX with either specific directions, or a maximum amount of how many patient will take perday, If any questions, please call the pharmacist at [phone]. Ashli Marcus RN documented in this encounter Plan of Treatment Upcoming Encounters Date Type Specialty Care Team Description 11/15/2022 Virtual Visit Pharm D Haylie Cheung, [facility] [address] [facility] [place] [phone] (Lena max) 11/15/2022 Virtual [place] [address] [place] [address] [place] [phone] (Lena max) 03/03/2023 Virtual Visit Neurology Erlinda Barber MD 420 [facility] 295 [place] [address] (eLna max) documented as of this encounter Visit Diagnoses Diagnosis half-way current use of anticoagulant t herapy - Primary Pulmonary embolism and infarction (H) documented in this encounter Care Teams Technical Operations Vice President Relationship Specialty Start Date End Date Lucero Stevenson PCP - General Pediatrics 10/11/11 04/22/19 MD Annetta Catalino Carballo, PCP - Assigned PCP 03/18/18 06/16/18 HOME SCHOOL TEACHER RELOCATION SERVICES SPECIALIST 17[address] [place] [address] Chastity Montero MD Dermatology 09/23/14 420 [facility] 98 [place], [place] [address] Johnnie Alcocer MD Surgeon General Surgery 03/23/17 [address] [facility] 300 [place], [place] [address] Janie Petersen, CHANDLER Clinic Touch Up Worker Primary Care - CC 05/03/18 08/09/18 documented as of this encounter
--- OUTSIDE RECORDS SUMMARY | 2022-06-15 13:11 | XMS_ITS | Encounter Summary ---
:1945 Author Organization [place] Address [address] [facility] [place] [address] Care Team Providers Name Role Phone Lucero Stevenson MD Primary Care Provider Chastity Montero MD Unavailable Johnnie Alcocer MD Unavailable Janie Petersen RN Unavailable Unavailable Catalino Carballo APRN ASSOCIATE FINANCIAL ADVISOR Unavailable [phone] Reason for Visit Reason Onset Date Comments Results 05/28/2018 Encounter Details Date Type Department Care Team Description 05/28/2018 Telephone [facility] Wound Abigail Mccall, Results Clinic [facility] [address] [facility] [address] [place] [address] [place] [id number] (Wo rk) Social History Tobacco Use Types [...] encounter Miscellaneous Notes Telephone Encounter - Mari Thurman RN - 05/28/2018 1:20 PM CST Patient called back and given results. When asked about Incidental large nabothian cyst in the cervix. She reports I havn't seen an OBGYN in years She will discuss with her PCP at her next appointment TS JOURNALIST Telephone Encounter - Mari Thurman RN - 05/28/2018 12:46 PM CST Attempted to Reach Patient and give results. Left Message for her to call clinic. TS JOURNALIST Telephone Encounter - Mari Thurman RN - 05/28/2018 12:45 PM CST ----- Message from Nuvia Mccall PA-C sent at 05/23/2018 4:46 PM SPORTS JOURNALIST ----- No evidence of bone infection or abscess. Incidental finding of cyst in the cervix, likely a benign cyst but she should have a pelvic exam with her OBGYN. TS JOURNALIST documented in this encounter Plan of Treatment Upcoming Encounters Date Type Specialty Care Team Description 11/15/2022 Virtual Visit Haylie Wakefield, [facility] [address] [facility] [place] [address] (Wo rk) 11/15/2022 Virtual Visit IM/PedYane Muir MD [address] [facility] [place] [address] (Wo rk) 03/03/2023 Virtual Visit Neurology Erlinda Barber MD [address] [place] [address] [facility] [address] [place], [place] [address] (Wo rk) documented as of this encounter Visit Diagnoses Not on filedocumented in this encounter Care Teams Tester Operator Relationship Specialty Start Date End Date Lucero Stevenson PCP - General Pediatrics 10/11/11 04/22/19 MD Annetta Catalino Carballo, PCP - Assigned PCP 03/18/18 06/16/18 FIELD HORTICULTURAL SPECIALTY GROWER ASSOCIATE FINANCIAL ADVISOR [address] [place] [address] Chastity Montero MD Dermatology 09/23/14 420 [facility] 98 [place], [place] [address] Johnnie Alcocer MD Surgeon General Surgery 03/23/17 [address] [facility] 300 [place], [place] [address] Janie Petersen, CHANDLER Clinic Hose Handler Primary Care - CC 05/03/18 08/09/18 documented as of this encounter
--- OUTSIDE RECORDS SUMMARY | 2022-06-15 13:12 | XMS_ITS | Encounter Summary ---
:1945 Author Organization [employer] Address [address] [place] [address] Care Team Providers Name Role Phone Lucero Stevenson MD Primary Care Provider [phone] Chastity Montero MD Unavailable [phone] Johnnie Alcocer MD Unavailable Janie Petersen RN Unavailable Unavailable Catalino Carballo APRN CONTRACT MODELER Unavailable [phone] Reason for Visit Reason Comments Hospital F/U Encounter Details Date Type Department Care Team Description 05/03/2018 Office Visit [facility] discharge follow-up (Primary Dx); Clinic Yarelis Conley MD Necrotizing fasciitis (H); [address] [facility] Left foot drop; [facility] Pulmonary embolism and infarction (H) [address] [place] [address] [place] [address] Social History Tobacco Use [...] or slept in a penitentiary (including now)? Sex Assigned at Date Recorded Female 12/24/2018 12:35 PM CDT documented as of this encounter Last Filed Vital Signs Vital Sign Reading Time Taken Comments Blood Pressure 105/72 05/03/2018 12:06 PM automatic Bp cuff CDT Pulse 92 05/03/2018 12:06 PM CDT Temperature 36.4 ??C (97.6 ??F) 05/03/2018 12:06 PM CDT Respiratory Rate - - Oxygen Saturation 98% 05/03/2018 12:06 PM CDT Inhaled Oxygen - - Concentration Weight 165.3 kg (364 lb 6.4 05/03/2018 12:06 PM oz) CDT Height - - Body Mass Index 58.82 10/26/2017 11:26 AM CDT documented in this encounter Patient Instructions Patient InstructionsCamryn Machado Mai, MD - 05/03/2018 11:50 AM CDT Will check INR today I am requesting records for your hospital stay Flu shot today Follow-up with Dr. Stevenson in 1 month documented in this encounter Progress Notes Camryn Machado Mai, MD - 05/03/2018 11:50 AM CDT SUBJECTIVE: Charlette Brush is a 73 year old female who presents to clinic today for the following health issues: Not going to be able to get her in sooner. Hospital Follow-up Visit: Hospital/Shelter/ Rehab Facility: [facility] admission 10/19/2017 and discharged to [place]. [place] [place] [facility] [place] where [facility]. DIscharged from [facility] on 04/27/2018 Reason(s) for Admission: Necrotizing fascitis. Problems taking medications regularly: None Medication changes since discharge: Updated med rec. Problems adhering to non-medication therapy: None Summary of hospitalization: Discharge summary unavailable - requesting records Diagnostic Tests/Treatments reviewed. Follow up needed: Yes - ongoing home health Other Healthcare Providers Involved in Patient???s Care: Homecare, Care Coordination and Specialist appointment - Podiatry, wound care Update since discharge: stable. Post Discharge Medication Reconciliation: discharge medications reconciled, continue medications without change. Plan of care communicated with patient Coding guidelines for this visit: Type of Medical Decision Making Xtjj-ad-Ldum Visit within 7 Days of discharge Ipvl-jy-Namm Visit within 14 days of discharge Moderate Complexity [id number] High Complexity [id number] Problem list and histories reviewed & adjusted, as indicated. Additional history: as documented Patient Active Problem List Diagnosis ??? Essential hypertension, benign ??? Pulmonary embolism and infarction (H) ??? Morbid obesity (H) ??? Other lymphedema ??? CEFERINO (obstructive sleep apnea) ??? CARDIOVASCULAR SCREENING; LDL GOAL LESS THAN 130 ??? Dermatitis, stasis ??? Advanced directives, counseling/discussion ??? Health Long Term ??? Binge eating ??? Eczema ??? Pre-diabetes ??? Vitamin D deficiency ??? 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 Rhabdomyolysis ??? Pressure ulcer of ischium, left, stage IV (H) ??? Cellulitis of left lower extremity ??? Physical deconditioning ??? Lymphedema of both lower extremities ??? Diarrhea Past Surgical History: Procedure Laterality Date ??? [...] Outpatient Prescriptions Medication Sig Dispense Refill ??? acetaminophen (TYLENOL) 325 MG tablet Take 325 mg by mouth daily ??? albuterol (2.5 MG/3ML) 0.083% neb solution Take 1 vial by nebulization every 4 hours as needed for shortness of breath / dyspnea or wheezing ??? ascorbic acid (VITAMIN C) 500 MG [...] Take 2,000 Units by mouth daily ??? FEROSUL 325 (65 Fe) MG tablet TK 1 T PO QD. 0 ??? furosemide (LASIX) 40 MG tablet TAKE 1 TABLET BY MOUTH EVERY DAY. 30 tablet 0 ??? losartan (COZAAR) 100 MG tablet Take 1 tablet (100 mg) by mouth daily 90 tablet 3 ??? METAMUCIL SMOOTH TEXTURE 58.6 % POWD USE 1 TABLESPOON PO DISSOLVED IN JUICE OR WATER UTD 0 ??? NYSTOP 790219 UNIT/GM POWD powder JOI TOPICALLY AA BENEATH BILATERAL BREAST/GROIN FOLDS BID UNTIL RESOLVED. 0 ??? pantoprazole (PROTONIX) 20 MG EC tablet [...] D. MIX WITH NYSTATIN CREAM. 0 ??? desoximetasone (TOPICORT) 0.05 % GEL Apply topically 2 times daily as needed for inflammation oritching ??? hydrocortisone 2.5 % ointment Daily as needed 180 g 3 ??? omeprazole (PRILOSEC) 40 MG capsule Take 1 capsule (40 mg) by mouth every morning 30 capsule ??? order for DME Equipment being ordered: [employer] Order Kate Emerson to evaluate for wheelchair cushion needs and pressure mapping. Patient is obese weighs 375# and unsure what cushion would properly offload. 1 Device 0 ??? warfarin (COUMADIN) 10 MG tablet TAKE DIRECTED BY INR CLINIC 30 tablet 0 ??? warfarin (COUMADIN) 3 MG tablet TAKE DIRECTED BY INR CLINIC 30 tablet 0 ??? warfarin (COUMADIN) 6 MG tablet Take 1 tablet (6 mg) by mouth daily or as directed by INR [id number] tablet 3 ??? warfarin (COUMADIN) 7.5 MG tablet She is not taking this size warfarin at this time. 50 tablet 1 Allergies Allergen Reactions ??? Cephalexin Hives Keflex - hives ??? Lanolin Other (See Comments) skin irritation ??? Lisinopril Cough ??? Neomycin Other (See Comments) skin irritation ??? Penicillins Hives ??? Bactroban [Mupirocin Calcium] Rash Reviewed and updated as needed this visit by clinical staff Reviewed and updated as needed this visit by Provider ROS: All other systems on a 10-point review are negative, unless otherwise noted in HPI OBJECTIVE: BP 105/72 (BP Location: Left arm) Pulse 92 Temp 97.6 ??F (36.4 ??C) (Oral) Wt (!) 364 lb 6.4 oz (165.3 kg) SpO2 98% BMI 58.82 kg/m2 Body mass index is 58.82 kg/(m^2). GENERAL: alert, no distress, obese and in wheel chair, is able to ambulate with assistance EYES: Eyes grossly normal to inspection, PERRL [...] masses and bowel sounds normal MS: significant bilateral lymphedema - both legs wrapped in compression bandages Diagnostic Test Results: none ASSESSMENT/PLAN: 1. Hospital discharge follow-up 73-year-old patient with a complicated past medical history here after prolonged hospital stay followed by transitional care for significant necrotizing fasciitis requiring surgical debridement. Has been discharged with appropriate orders for home health. Is doing well. Requesting further documentation of TCU stays today ([facility]). 2. Necrotizing fasciitis (H) Initially hospitalized for infected wound and necrotizing fasciitis with sepsis - stabilized and transferred to SNF for continued wound care and rehabilitation services on 11/17/2017. Discharged home 04/27/2018 with continued home care services. 3. Left foot drop Complication nerve damaged arising after multiple debridement surgeries. Is in PT for this now. 4. 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 INR clinic order reactivated already by PCP. Will recheck INR today. - INR Patient Instructions Will check INR today I am requesting records for your hospital stay Flu shot today Follow-up with Dr. Stevenson in 1 month Camryn Machado MD [facility] BORE HELPER documented in this encounter Plan of Treatment Upcoming Encounters Date Type Specialty Care Team Description 11/15/2022 Virtual Visit Pharm Haylie Gonzalez, [facility] [address] [place] [phone] (Lena max) 11/15/2022 Virtual Visit [place] [address] [place] [address] [place] [id number] (Lena max) 03/03/2023 Virtual Visit Neurology Erlinda Barber MD [address] [facility] [address] [place] [address] (Lena max) documented as of this encounter Procedures Procedure Name Priority Date/Time Associated Diagnosis Comme nts INR Routine 05/03/2018 1:11 PM Pulmonary embolism Res ults for this CDT and infarction (H) procedure are in the results section . documented in this encounter Results (ABNORMAL) INR (05/03/2018 1:11 PM CDT) P athologist Signature INR 4.00 (H) 0.86 - 1.14 05/03/2018 [place] 1:20 PM CDT [facility] Comment: This test is intended for monitoring Cou madin therapy. ??Results are not accurate in patients with prolonged INR due to factor deficiency. Specimen Anatomical Collection Method Collection Time Receive d Time (Source) Location / / Volume Laterality Blood specimen 05/03/2018 1:11 PM 018 1:13 (specimen) CDT PM CDT Camryn Machado MD LAB - BLOOD ORDERABLES Performing Organization Address City/State/ZIP Code Phon e Number [facility] [address] [place] [address] documented in this encounter Visit Diagnoses Diagnosis Hospital discharge follow-up - Primary Other follow-up examination Necrotizing fasciitis (H) Necrotizing fasciitis Left foot drop Other acquired deformity of ankle and fo ot Pulmonary embolism and infarction (H) documented in this encounter Care Teams Social Work Assistant Relationship Specialty Start Date End Date Lucero Stevenson PCP - General Pediatrics 10/11/11 04/22/19 MD Annetta Catalino Carballo, PCP - Assigned PCP 03/18/18 06/16/18 COUNTER INTELLIGENCE TECHNICIAN CONTRACT MODELER [address] [place] [address] Chastity Montero MD Dermatology 09/23/14 [address] [facility] [address] [place], [place] [address] Johnnie Alcocer MD Surgeon General Surgery 03/23/[address] [place], [place] [address] Janie Petersen, CHANDLER Clinic Gravity Manager Primary Care - CC 05/03/18 08/09/18 documented as of this encounter
--- OUTSIDE RECORDS SUMMARY | 2022-06-15 13:12 | XMS_ITS | Encounter Summary ---
:1945 Author Organization [place] Address [address] [place] [address] Care Team Providers Name Role Phone Lucero Stevenson MD Primary Care Provider Chastity Montero MD Unavailable [phone] Johnnie Alcocer MD Unavailable Catalino Carballo APRN [facility] Unavailable [phone] Reason for Visit Reason Onset Date Comments [facility] 04/30/2018 Encounter Details Date Type Department Care Team Description 04/30/2018 [facility] Lucero Patterson [facility] Yarelis Littlejohn MD [address] [facility] [address] [place] [address] [address] [place] [address] [place] [address] [phone] Social History Tobacco Use Types Packs/Day Years [...] Telephone Encounter - Danni Marcus RN - 05/01/2018 7:[address] Stevenson had given approval for orders for Physical therapy. I called home care nurse, Huong, and gave verbal approval for orders requested below. No further questions. Will call back if any other questions or concerns. Ashli Marcus RN Telephone Encounter - Danni Marcus RN - 04/30/2018 4:16 PM CDT CHANDLER Borja, from [facility] calling for orders for start of care for mcc, Physicaltherapy, OT and home health aide. Patient has a large wound on her buttocks. Call Huong at [phone]. OK to Patient is just discharged from TCU-has been there for the past 3 months. [facility] Has appointment on . Has cancelled several appointments. Ok to give orders, or wait for appointment on . Ashli Marcus RN documented in this encounter Plan of Treatment Upcoming Encounters Date Type Specialty Care Team Description 11/15/2022 Virtual Visit Pharm D Haylie Cheung, [facility] [address] [facility] [place] [address] (Lena max) 11/15/2022 Virtual Visit [place] [address] [place] [address] [place] [address] (Lena max) 03/03/2023 Virtual Visit Neurology Erlinda Barber MD [address] [facility] [address] [place], [place] [address] (Wo rk) documented as of this encounter Visit Diagnoses Not on filedocumented in this encounter Care Teams Golf Club Maker Relationship Specialty Start Date End Date Lucero Stevenson MD PCP - General Pediatrics 10/11/11 04/22/19 Catalino Carballo APRN PCP - Assigned PCP 03/18/18 06/16/18 [facility] [address] [place] [address] Chastity Montero MD MD Dermatology 09/23/14 [address] [facility] 98 [place] [address] Johnnie Alcocer MD Surgeon General Surgery 03/23/17 [address] [facility] [address] [place], [place] [address] documented as of this encounter
--- OUTSIDE RECORDS SUMMARY | 2022-06-15 13:12 | XMS_ITS | Encounter Summary ---
:1945 Author Organization [place] Address [address] [place] [address] Care Team Providers Name Role Phone Lucero Stevenson MD Primary Care Provider [phone] Chastity Montero MD Unavailable [phone] Johnnie Alcocer MD Unavailable Janie Petersen RN Unavailable Unavailable Lucero Stevenson MD Unavailable [phone] Catalino Carballo FELLER HAND WASHATERIA ATTENDANT Unavailable [phone] Lucero Stevenson MD Unavailable [phone] Danni Marcus RN Unavailable Unavailable Kana Doshi YARN CLEANER Unavailable Mtm, Ea Complex Unavailable Unavailable Svetlana Osman [facility] Unavailable [phone] Doris Lai MD Primary Care Provider Haylie Cheung [facility] Unavailable [phone] Galdino Valdez MD Unavailable Galdino Valdez MD Primary Care Provider Jaiden Holcomb MD Primary Care Provider [phone] Kendall Joseph MD Unavailable Erlinda Barber MD Unavailable Jaiden Holcomb MD Unavailable [phone] Lucero Stevenson MD Primary Care Provider [phone] Doris Lai MD Primary Care Provider Ruth John MD Unavailable Kajal Huggins MD Unavailable Patience Toussaint NP Unavailable Brook Sánchez MD Unavailable Yane Barraza MD Primary Care Provider Osmar Kidd MD Unavailable Erlinda Barber MD Unavailable Yane Barraza MD Primary Care Provider Lenore Alcala MD Unavailable Haylie Chenug [facility] Unavailable [phone] Gaye Patrick RN Unavailable Unavailable Kenya Abernathy APRN WASHATERIA ATTENDANT Unavailable [phone] Hayley German OD Unavailable Haylie Cheung [facility] Unavailable [phone] Reason for Visit Reason Onset Date Comments Medication Refill atenolol (TENORMIN) 25 MG tablet; furosemide (LASIX) 40 MG tablet Refill Request 04/26/2018 losartan (COZAAR) 10 0 MG tablet Encounter Details Date Type Department Care Team Description 04/26/2018 Refill [facility] Lucero Stevenson [facility] Yarelis Littlejohn MD (atenolol (TENORMIN) 25 [facility]; furosemide [address] (LASIX) 40 MG tablet); [address] [place] [address] Refill Request [place] [address] (losartan (COZAAR) 100 587-087-2313952.891.1297 MG tablet ) Social History Tobacco Use Types Packs/Day [...] Telephone Encounter - Lucero Stevenson MD - 04/27/2018 1:06 PM CDT 30 day supply sent for all, please help her schedule appt. Lucero Stevenson MD Telephone Encounter - Hoda Ronquillo, CHANDLER - 04/27/2018 12:59 PM CDT Routing refill request to provider for review/approval because: Patient needs to be seen because it has been more than 1 year since last office visit. Patient has had multiple hospitalizations. Hoda Ronquillo RN Telephone Encounter - Edward Jack - 04/26/2018 1:37 PM CDT Requested Prescriptions Pending Prescriptions Disp Refills ??? atenolol (TENORMIN) 25 MG tablet [Pharmacy Med Name: ATENOLOL 25MG TABLETS] Last Written Prescription Date: 01/03/2017 Last Fill Quantity: 180 tablet, # refills: 3 Last office visit: 03/14/2017 with prescribing provider: Lucero Stevenson MD Future Office Visit: Next 5 appointments (look out 90 days) May 03, 2018 11:50 AM CDT Office Visit with Rick Machado MD [facility] [address] [place] [address] [address] [place] [address] 180 tablet 0 Sig: TAKE 1 TABLET BY MOUTH TWICE DAILY. Beta-Blockers Protocol Passed 04/26/2018 1:32 PM Passed - Blood pressure under 140/90 in past 12 months BP Readings from Last 3 Encounters: 10/28/17 139/75 10/26/17 133/69 10/25/17 166/90 Passed - Patient is age 7 or [...] & Orders section of the refill encounter. ??? furosemide (LASIX) 40 MG tablet [Pharmacy Med Name: FUROSEMIDE 40MG TABLETS] Last Written Prescription Date: na Last Fill Quantity: na, # refills: na Last office visit: 03/14/2017 with prescribing provider: Lucero Stevenson MD Future Office Visit: Next 5 appointments (look out 90 days) May 03, 2018 11:50 AM CDT Office Visit with Rick Machado MD [facility] [address] [place] [address] [address] [place] [address] 90 tablet 0 Sig: TAKE 1 TABLET BY MOUTH EVERY DAY. Diuretics (Including Combos) Protocol Failed 04/26/2018 1:32 PM Failed - Normal serum creatinine on file in past 12 months Recent Labs Lab Test 10/28/17 1515 CR 0.48* Passed - Blood pressure under 140/90 in past 12 months BP Readings from Last 3 Encounters: 10/28/17 139/75 10/26/17 133/69 10/25/17 166/90 Passed - Recent (12 mo) or future [...] months Recent Labs Lab Test 10/28/17 1515 POTASSIUM 3.8 Passed - Normal serum sodium on file in past 12 months Recent Labs Lab Test 10/28/17 1515 NA 138 Passed - No positive test in past 12 months ??? losartan (COZAAR) 50 MG tablet [Pharmacy Med Name: LOSARTAN 50MG TABLETS] Last Written Prescription Date: 01/03/2017 Last Fill Quantity: 90 tablet, # refills: 3 Last office visit: 03/14/2017 with prescribing provider: Lucero Stevenson MD Future Office Visit: Next 5 appointments (look out 90 days) May 03, 2018 11:50 AM CDT Office Visit with Rick Machado MD [facility] [address] [place] [address] 90 tablet 0 Sig: TAKE 1 TABLET BY MOUTH EVERY DAY Angiotensin-II Receptors Failed 04/26/2018 1:32 PM Failed - Normal serum creatinine on file in past 12 months Recent Labs Lab Test 10/28/17 1515 CR 0.48* Passed - Blood pressure under 140/90 in past 12 months BP Readings from Last 3 Encounters: 10/28/17 139/75 10/26/17 133/69 10/25/17 166/90 Passed - Recent (12 mo) or future [...] months Recent Labs Lab Test 10/28/17 1515 POTASSIUM 3.8 Passed - No positive test in past 12 months documented in this encounter Plan of Treatment Upcoming Encounters Date Type Specialty Care Team Description 11/15/2022 Virtual Visit Pharm D Haylie Cheung, [facility] [address] [facility] [place] [address] (Wo rk) 11/15/2022 Virtual Visit IM/Peds Yane Barraza MD [address] [facility] [place] [address] (Wo rk) 03/03/2023 Virtual Visit Neurology Erlinda Barber MD 420 [facility] [address] [place] [address] (Wo rk) documented as of this encounter Visit Diagnoses Diagnosis Essential hypertension, benign documented in this encounter Care Teams Cover Stitch Machine Operator Relationship Specialty Start Date End Date Lucero Stevenson, PCP - General Pediatrics 10/11/11 Lucero Stevenson, PCP - Assigned PCP 06/17/18 09/18/18 MD TOÑO LOPEZ [address] [place] [address] Catalino Carballo, PCP - Assigned PCP 03/18/18 06/16/18 FELLER HAND WASHATERIA ATTENDANT [address] [place] [address] Doris Lai MD PCP - General Internal Medicine 04/23/19 05/14/19 3[address] [facility] [place] [phone] Galdino Valdez MD PCP - General Family Practice 11/29/19 02/12/[address] [place], [place] [phone] Jaiden Holcomb PCP - General Internal Medicine 02/13/2010/03 MD Jayesh [address] [place] [address] [place] [address] Lucero Stevenson, PCP - General 05/15/19 1 07/23/18 MD TOÑO LOPEZ [address] [place], [place] [phone] Doris Lai MD PCP - General 05/24/19 11/28/[address] [place] [address] [place], [place] [phone] Yane Barraza MD PCP - General Internal Medicine 10/04/21 12/07/[address] [place] [address] [place], [place] [phone] Yane Barraza MD PCP - General Internal Medicine 12/08/[address] [place] [address] [place], [place] [phone] Chastity Montero MD Dermatology 09/23/14 MD Gurpreet ESPAÑA [facility] 98 [place], [place] [phone] Johnnie Alcocer MD Surgeon General Surgery 03/23/17 [address] [facility] [address] [place], [place] [phone] Janie Petersen, CHANDLER Clinic Care Primary Care - CC 05/03/18 9 Coordinator Lucero Stevenson, Assigned PCP 06/17/18 MD TOÑO LOPEZ [address] [place] [phone] Danni Marcus, CHANDLER Personal Advocate & 01/09/1901/17 Liaison (PAL) Kana Doshi LSW Clinic Care Primary Care - CC 03/19/19 05/07/19 Coordinator Kyle King Complex 04/23/19 Svetlana Osman, Pharmacist Pharmacotherapy 04/23/19 [facility] [address] [facility] [address] [place], [place] [phone] Haylie Cheung, Pharmacist Pharmacist 09/11/19 [facility] [address] [facility] [address] [place], [place] [phone] Galdino Valdez MD Assigned PCP 11/10/19 05/23/[address] [place], [place] [phone] Opal, Assigned Sleep 05/08/20 03/27/21 Kendall Meehan MD Provider [address] [facility] 106 [place], [place] [address] Erlinda Barber MD Assigned Neuroscience 05/08/20 01/26/21 [address] [facility] 295 Provider [place], [place] [address] Jaiden Holcomb Assigned PCP 05/24/20 MD Jayesh 9[address] [place], [place] [address] Ruth John MD Assigned Infectious 01/29/21 07/03/21 [facility] INFECTIOUS Disease Provider [facility] [address] [place] [address] [address] [place], [place] [phone] Kajal Huggins MD Assigned Neuroscience 01/29/21 10/23/[address] [place] [address] Provider [address] [place] [address] Patience Toussaint NP Assigned Surgical 01/29/21 02/11/22 29[address] [facility] Provider [address] [place], [place] [phone] Brook Sánchez MD Assigned Infectious 07/04/[address] Disease Provider [place], [place] [address] Osmar Kidd MD Assigned Sleep 09/26/[address] [place] [address] [place] [address] Erlinda Barber MD Assigned Neuroscience 10/24/[address] [facility] [address] [place] [address] Lenore Alcala MD Assigned Heart and 12/18/21 01/21/[address] [place] Vascular Provider [address] [place] [address] Haylie Cheung, Assigned MTM 01/08/22 [facility] Pharmacist [address] [place], [place] [phone] Gaye Patrick, RN Personal Advocate & 01/18/22 Liaison (PAL) Kenya Abernathy APRN Assigned Heart and 01/22/22 WASHATERIA ATTENDANT Vascular Provider [address] [place] [address] Hayley German, Assigned Surgical 02/12/22 [place] Provider [address] [facility] [place] [address] Haylie Cheung, Assigned MTM 04/13/22 [facility] Pharmacist [address] [place], [place] [phone] documented as of this encounter
--- OUTSIDE RECORDS SUMMARY | 2022-06-15 13:12 | XMS_ITS | Encounter Summary ---
:1945 Author Organization [facility] Address [address] [place] [address] Care Team Providers Name Role Phone Lucero Stevenson MD Primary Care Provider Chastity Montero MD Unavailable [phone] Johnnie Alcocer MD Unavailable Janie Petersen RN Unavailable Unavailable Lucero Stevenson MD Unavailable [phone] Catalino Carballo MOTION STUDY TECHNICIAN ART EDITOR Unavailable [phone] Lucero Stevenson MD Unavailable [phone] Danni Marcus RN Unavailable Unavailable Kana Doshi AUTOMOTIVE DRIVABILITY TECHNICIAN Unavailable Mtm, Ea Complex Unavailable Unavailable Svetlana Osman [facility] Unavailable Doris Lai MD Primary Care Provider Haylie Cheung [facility] Unavailable [phone] Galdino Valdez MD Unavailable Galdino Valdez MD Primary Care Provider Jaiden Holcomb MD Primary Care Provider [phone] Kendall Joseph MD Unavailable Erlinda Barber MD Unavailable Jaiden Holcomb MD Unavailable [phone] Lucero Stevenson MD Primary Care Provider [phone] Doris Lai MD Primary Care Provider Encounter Details Date Type Department Care Team Description 04/19/2018 Records - [facility], Korina butterfield MD, [facility] [place] [id number] [phone] [place] [address] (Wo rk) Social History Tobacco Use Types [...] minutes do you engage in exercise at is 40 min 05/03/2021 level? Stress Answer [...] Haylie Wakefield, [facility] [address] [place], [place] [id number] (Wo rk) 11/15/2022 Virtual Visit IM/Yane Mathias MD [address] [facility] [place] [id number] (Wo rk) 03/03/2023 Virtual Visit Neurology Erlinda Braber MD [address] [facility] 295 [place], [place] [address] (Wo rk) documented as of this encounter Procedures Procedure Name Priority Date/Time Associated Comments Diagnosis IRON BINDING PANEL Routine 04/19/2018 4:53 AM Res ults for this CDT procedure are i n the results section. HEMOGLOBIN Routine 04/19/2018 4:53 AM Results f or this CDT procedure are i n the results section. FERRITIN Routine 04/19/2018 4:53 AM Results f or this CDT procedure are i n the results section. ERYTHROCYTE Routine 04/19/2018 4:53 AM Results f or this SEDIMENTATION RATE CDT procedure are in AUTO the results section. CRP INFLAMMATION Routine 04/19/2018 4:53 AM Resul ts for this CDT procedure are i n the results section. ALBUMIN LEVEL Routine 04/19/2018 4:53 AM Results for this CDT procedure are i n the results section. documented in this encounter Results (ABNORMAL) Albumin level (04/19/2018 4:53 AM CDT) P athologist Signature Albumin 2.5 (L) 3.5 - 5.0 04/19/2018 [facility] g/dL 9:23 AM CDT [facility] Specimen Anatomical Collection Method / Collection Time Recei yudy Time (Source) Location / Volume Laterality Blood specimen STRUCTURE OF LEFT Venipuncture / 04/19/2018 4:53 10/2017 8:53 (specimen) HAND / Unknown Unknown AM CDT AM CDT Tracey Tena MD, MD LAB - BLOOD ORDERABLES Performing Organization Address City/State/ZIP Code Phon e Number [facility] [place] [address] [id number] [place] [address] LABORATORY (ABNORMAL) Erythrocyte sedimentation rate auto (04/19/2018 4:53 AM CDT) Patholo gist Method Time Signature Erythrocyte 35 (H) 0 - 20 04/19/2018 [facility] Sedimentation Rate mm/hr 9:54 AM CDT [facility] Specimen Anatomical Collection Method / Collection Time Recei yudy Time (Source) Location / Volume Laterality Blood specimen STRUCTURE OF LEFT Venipuncture / 04/19/2018 4:53 10/2017 8:53 (specimen) HAND / Unknown Unknown AM CDT AM CDT Tracey Tena MD, MD LAB - BLOOD ORDERABLES Performing Organization Address City/[facility] Phon e Number [facility] [address] [address] [place] [facility] (ABNORMAL) CRP inflammation (04/19/2018 4:53 AM CDT) P athologist Signature CRP 1.5 (H) 0.0 - 0.8 04/19/2018 [facility] mg/dL 9:26 AM CDT [facility] Specimen Anatomical Collection Method / Collection Time Recei yudy Time (Source) Location / Volume Laterality Blood specimen STRUCTURE OF LEFT Venipuncture / 04/19/2018 4:53 10/2017 8:53 (specimen) HAND / Unknown Unknown AM CDT AM CDT Tracey Tena MD, MD LAB - BLOOD ORDERABLES Performing Organization Address City/[facility] Phon e Number [facility] [address] [address] [facility] Ferritin (04/19/2018 4:53 AM CDT) P athologist Signature Ferritin 33 10 - 130 04/19/2018 [facility] ng/mL 10:29 AM CDT [facility] Specimen Anatomical Collection Method / Collection Time Recei yudy Time (Source) Location / Volume Laterality Blood specimen STRUCTURE OF LEFT Venipuncture / 04/19/2018 4:53 10/2017 8:53 (specimen) HAND / Unknown Unknown AM CDT AM CDT Tracey Tena MD, MD LAB - BLOOD ORDERABLES Performing Organization Address [facility] Phon e Number [facility] [place] [address] [address] [place] [facility] (ABNORMAL) Iron binding panel (04/19/2018 4:53 AM CDT) Patholo gist Method Time Signature Iron 26 (L) 42 - 175 04/19/2018 [facility] ug/dL 9:26 AM CDT [facility] Transferrin 193 (L) 212 - 360 04/19/2018 [facility] mg/dL 9:26 AM CDT [facility] Transferrin 11 (L) 20 - 50 % 04/19/2018 [facility] Saturation, 9:[address] [facility] Transferrin IBC, 241 (L) 313 - 563 04/19/2018 [facility] Calculated ug/dL 9:26 AM CDT [facility] Specimen Anatomical Collection Method / Collection Time Recei yudy Time (Source) Location / Volume Laterality Blood specimen STRUCTURE OF LEFT Venipuncture / 04/19/2018 4:53 10/2017 8:53 (specimen) HAND / Unknown Unknown AM CDT AM CDT Tracey Tena MD, MD LAB - BLOOD ORDERABLES Performing Organization Address City/State/ZIP Code Phon e Number [facility] [place] [address] [phone] [address] [place] [facility] (ABNORMAL) Hemoglobin (04/19/2018 4:53 AM CDT) P athologist Signature Hemoglobin 11.1 (L) 12.0 - 04/19/2018 [facility] 16.0 g/dL 9:08 AM CDT [facility] Specimen Anatomical Collection Method / Collection Time Recei yudy Time (Source) Location / Volume Laterality Blood specimen STRUCTURE OF LEFT Venipuncture / 04/19/2018 4:53 10/2017 8:53 (specimen) HAND / Unknown Unknown AM CDT AM CDT Tracey Tena MD, MD LAB - BLOOD ORDERABLES Performing Organization Address City/State/ZIP [place] [address] [phone] [address] [facility] documented in this encounter Visit Diagnoses Not on filedocumented in this encounter Care Teams Clinical Research Tech Relationship Specialty Start Date End Date Lucero Stevenson, PCP - General Pediatrics 10/11/11 Lucero Stevenson, PCP - Assigned PCP 06/17/18 09/18/18 MD TOÑO LOPEZ [address] [place] [id number] Catalino Carballo, PCP - Assigned PCP 03/18/18 06/16/18 MOTION STUDY TECHNICIAN ART EDITOR [address] [place] [address] Doris Lai MD PCP - General Internal Medicine 04/23/19 05/14/[address] [place] [address] [place] [id number] Galdino Valdez MD PCP - General Family Practice 11/29/19 02/12/20 [address] [place], [place] [id number] Jaiden Holcomb PCP - General Internal Medicine 02/13/2010/03 MD Jayesh [address] [facility] [place] [id number] Lucero Stevenson, PCP - General 05/15/19 1 07/23/18 MD TOÑO LOPEZ [address] [employer], [place] [phone] Doris Lai MD PCP - General 05/24/19 11/28/[address] [place], [place] [phone] Chastity Montero MD Dermatology 09/23/14 [address] [facility] 98 [place] [address] Johnnie Alcocer MD Surgeon General Surgery 03/23/17 [address] [facility] [address] [place], [place] [id number] Janie Petersen, CHANDLER Clinic Care Primary Care - CC 05/03/18 9 Coordinator Lucero Stevenson, Assigned PCP 06/17/18 MD TOÑO LOPEZ [address] [place] [address] Danni Marcus, CHANDLER Personal Advocate & 01/09/1901/17 Liaison (PAL) Kana Doshi LSW Clinic Care Primary Care - CC 03/19/19 05/07/19 Coordinator Fernando, Ea Complex 04/23/19 Svetlana Osman, Pharmacist Pharmacotherapy 04/23/[address] [facility] [address] [place] [address] Haylie Cheung, Pharmacist Pharmacist 09/11/[address] [facility] [address] [place], [place] [phone] Galdino Valdez MD Assigned PCP 11/10/19 05/23/20 [address] [place] [address] Opal, Assigned Sleep 05/08/20 03/27/21 Kendall Meehan MD Provider [address] [place], [place] [address] Erlinda Barber MD Assigned Neuroscience 05/08/20 01/26/21 [address] [facility] 295 Provider [place], [place] [phone] Jaiden Holcomb Assigned PCP 05/24/20 MD Jayesh 909 [place] [address] documented as of this encounter
--- OUTSIDE RECORDS SUMMARY | 2022-06-15 13:12 | XMS_ITS | Encounter Summary ---
:1945 Author Organization [facility] Address [address] [place] [address] Care Team Providers Name Role Phone Lucero Stevenson MD Primary Care Provider [phone] Chastity Montero MD Unavailable [phone] Johnnie Alcocer MD Unavailable Catalino Carballo APRN [facility] Unavailable [phone] Reason for Visit Reason Comments Medication Refill losartan Encounter Details Date Type Department Care Team Description 04/27/2018 Refill [facility] Lucero Stevenson [facility] Ref[facility] Clinic Yarelis Littlejohn MD (losartan) [address] [facility] [address] [place] [address] [address] [place] [address] [place] [address] [phone] Social History Tobacco Use Types Packs/Day Years [...] this encounter Miscellaneous Notes Telephone Encounter - Hoda Ronquillo RN - 04/27/2018 3:00 PM CDT Last Written Prescription Date: 04/27/18 Last Fill Quantity: 30, # refills: 0 Last office visit: 03/14/2017 with prescribing provider: Lucero Stevenson Future Office Visit: Next 5 appointments (look out 90 days) May 03, 2018 11:50 AM CDT Office Visit with Rick Machado MD [facility] [address] [place] [address] [address] [facility] [address] Requested Prescriptions Pending Prescriptions Disp Refills ??? losartan (COZAAR) 50 MG tablet [Pharmacy Med Name: LOSARTAN 50MG TABLETS] 90 tablet 0 Sig: TAKE 1 TABLET BY MOUTH EVERY DAY. Angiotensin-II Receptors Failed 04/27/2018 1:49 PM Failed - Normal serum creatinine on [...] No positive test in past 12 months Refused. Duplicate. Hoda Ronquillo RN documented in this encounter Plan of Treatment Upcoming Encounters Date Type Specialty Care Team Description 11/15/2022 Virtual Visit Pharm D Haylie Cheung, [facility] [address] [facility] [place] [address] (Wo rk) 11/15/2022 Virtual Visit IM/Peds Yane Barraza MD [address] [facility] [place] [address] (Wo rk) 03/03/2023 Virtual Visit Neurology Erlinda Barber MD [address] [facility] 295 [place] [address] (Wo rk) documented as of this encounter Visit Diagnoses Diagnosis Essential hypertension, benign documented in this encounter Care Teams Pie Crimping Machine Operator Relationship Specialty Start Date End Date Lucero Stevenson MD PCP - General Pediatrics 10/11/11 04/22/19 Catalino Carballo APRN PCP - Assigned PCP 03/18/18 06/16/18 [facility] 1700 [place] [address] Chastity Montero MD MD Dermatology 09/23/14 [address] [facility] 98 [place], [place] [address] Johnnie Alcocer MD Surgeon General Surgery 03/23/[address] [place], [place] [address] documented as of this encounter
--- OUTSIDE RECORDS SUMMARY | 2022-06-15 13:12 | XMS_ITS | Encounter Summary ---
:1945 Author Organization [facility] Address [address] [place] [address] Care Team Providers Name Role Phone Lucero Stevenson MD Primary Care Provider [phone] Chastity Montero MD Unavailable [phone] Johnnie Alcocer MD Unavailable Catalino Carballo APRN [facility] Unavailable [phone] Reason for Visit Reason Onset Date Comments Home Care/Hospice 05/01/2018 Encounter Details Date Type Department Care Team Description 05/01/2018 Telephone [facility] Stefanie Stevenson ne Home Care/Hospice Yarelis Littlejohn MD [address] [facility] [address] [place] [address] [address] [place] [address] Yarelis [place] [address] [phone] Social History Tobacco Use Types Packs/Day Years [...] Telephone Encounter - Danni Marcus, RN - 05/01/2018 2:09 PM CDT Verbal approval given for orders. Dr. Stevenson has given approval for home care services. No further questions. Will call back if any other questions or concerns. Ashli Marcus RN Telephone Encounter - Gisele Reed - 05/01/2018 12:38 PM CDT Michelle from [facility] Care calling in regarding if a Strategy Lead can be added on for the patient to help in home. Callback number [phone] [facility] to [facility]. Thanks Luis E Carreon Team Coodinator documented in this encounter Plan of Treatment Upcoming Encounters Date Type Specialty Care Team Description 11/15/2022 Virtual Visit Pharm Haylie Gonzalez, [facility] [address] [facility] [address] [place] [phone] (Wo rk) 11/15/2022 Virtual Visit [place] [address] [place] [address] [place] [phone] (Wo rk) 03/03/2023 Virtual Visit Neurology Erlinda Barber MD [address] [facility] [address] [place], [place] [address] (Wo rk) documented as of this encounter Visit Diagnoses Not on filedocumented in this encounter Care Teams Supervisor Soldering Relationship Specialty Start Date End Date Lucero Stevenson MD PCP - General Pediatrics 10/11/11 04/22/19 Catalino Carballo APRN PCP - Assigned PCP 03/18/18 06/16/18 BALLET TEACHER [address] [place] [address] Chastity Montero MD MD Dermatology 09/23/14 [address] [facility] 98 [place], [place] [address] Johnnie Alcocer MD Surgeon General Surgery 03/23/17 [address] [facility] 300 [place] [address] documented as of this encounter
--- OUTSIDE RECORDS SUMMARY | 2022-06-15 13:12 | XMS_ITS | Encounter Summary ---
:1945 Author Organization [place] Address [address] [facility] [place] [address] Care Team Providers Name Role Phone Lucero Stevenson MD Primary Care Provider [phone] Chastity Montero MD Unavailable [phone] Johnnie Alcocer MD Unavailable Janie Petersen RN Unavailable Unavailable Catalino Carballo APRN TOP CLEANER Unavailable [phone] Reason for Referral Consultation - Closed Specialty Diagnoses / Procedures Referred By Contact Refer red To Contact Diagnoses Pressure injury of sacral region, unstageable (H) Lucero Stevenson [facility] [address] [place], [place] [address] [address] [facility] [address] [place] [address] [place] [address] Fax: Referral ID Status Reason Start Date Expiration Date Visits Requ ested Visits Authorized [id number] Closed 05/03/2018 05/03/2019 1 1 Reason for Visit Reason Onset Date Comments Home Care/Hospice 04/30/2018 Physical therapy ord ers Encounter Details Date Type Department Care Team Description 04/30/2018 Telephone [facility] Lucero Stevenson Home Care/Hospice Clinic Yarelis Littlejohn MD (Physical therapy [facility] [facility] [facility] [address] [place] [address] [place] [address] [phone] Social History Tobacco Use Types Packs/Day Years [...] Telephone Encounter - Jolanta Reddy RN - 05/03/2018 1:19 PM CDT Call to Michelle [facility] Home care. Advised of the instructions below. Asking to FAX to: [phone], attn. Michelle, team 3. Huddled with Dr. Machado- hang right foot in franklin salt, dress once daily-apply antibiotic ointment, cover with gauze, bandage. If redness or swelling spreads to the foot, notify PCP for possible treatment of cellulitis. Order written and faxed. Jolanta Reddy RN Message handled by Nurse Triage. Telephone Encounter - Camryn Machado Mai, MD - 05/03/2018 1:06 PM CDT Evaluated patient today and would like to request, if possible, home health nurse dietary supervisor to check infected right second toe nail, soak right foot in epsom salt, and dress once daily until she canbe evaluated by podiatry on Monday. If redness or swelling spreads to foot, notify PCP for possible t reatment of cellulitis. Thanks. Camryn Machado MD Telephone Encounter - Danni Marcus RN - 05/02/2018 12:02 PM CDT Kristine will also notify Bibi of approval for Physical therapy orders per her request. Ashli Marcus RN Telephone Encounter - Danni Marcus RN - 05/02/2018 11:43 AM CDT Kristine ARTEAGA calling from [facility] calling for orders for-. OT for lymphedema-Verbal approval given for this order. Wound clinic referral. Patient has a wound on her left buttocks measuring 9 cm X 7.5 cm X 6cm Wound clinic referral pended. Appointment is scheduled with Podiatry for Monday to evaluate an infected right second toe. Has redness extending 1 cm from the nail. Patient has appointment with Dr. Machado tomorrow. Ashli Marcus RN Telephone Encounter - Danni Marcus RN - 05/02/2018 9:13 AM CDT LMTCB for RN to ask her to notify Bibi to call the clinic. Unable to reach her. Ashli Marcus RN Telephone Encounter - Danni Marcus RN - 05/01/2018 7:47 AM CDT Per RN HuongBibi's number is [phone]. I called this number and there is a recording that it doesn't accept incoming calls. D. Marcus RN Telephone Encounter - Lucero Stevenson MD - 04/30/2018 5:[address] Ok to [address] orders for PT. Lucero Stevenson MD Telephone Encounter - Danni Marcus RN - 04/30/2018 3:15 PM CDT Bibi, Physical therapist with [facility] calling for orders for continued orders for Physical therapy twice/week for 4 weeks, and once/week for one week. Patient has just been discharged from TCU and is living in a [facility]. Patient has not been seen since February 2017. OK to give orders for Physical therapy or should this wait for office appointment on ? She has an appointment scheduled on , but has cancelled multiple times due to transportation. Bibi has advised patient to contact [facility] for transportation today. Please advise. Ashli Marcus RN documented in this encounter Plan of Treatment Upcoming Encounters Date Type Specialty Care Team Description 11/15/2022 Virtual Visit Pharm Haylie Gonzalez, [facility] [address] [facility] [address] [place] [phone] (Wo rk) 11/15/2022 Virtual Visit [place] [address] [place] [address] [place] [id number] (Wo rk) 03/03/2023 Virtual Visit Neurology Erlinda Barber MD 420 [facility] 295 [place], [place] [address] (Wo rk) Scheduled Referrals Name Type Priority Associated Diagnoses Order S chedule WOUND CARE REFERRAL Referral Routine Pressure injury of sa cral Ordered: 05/03/2018 region, unstageable (H) documented as of this encounter Visit Diagnoses Diagnosis Pressure injury of sacral region, unstag eable (H) - Primary documented in this encounter Care Teams Hot Billet Shear Operator Relationship Specialty Start Date End Date Lucero Stevenson PCP - General Pediatrics 10/11/11 04/22/19 MD Annetta Catalino Carballo, PCP - Assigned PCP 03/18/18 06/16/18 BREAKDOWN PERSON TOP CLEANER [address] [place] [address] Chastity Montero MD Dermatology 09/23/14 420 [facility] 98 [place], [place] [address] Johnnie Alcocer MD Surgeon General Surgery 03/23/17 [address] [place], [place] [phone] Janie Petersen, CHANDLER Clinic Structural Metal Fabricator Apprentice Primary Care - CC 05/03/18 08/09/18 documented as of this encounter
--- OUTSIDE RECORDS SUMMARY | 2022-06-15 13:12 | XMS_ITS | Encounter Summary ---
:1945 Author Organization [place] Address [facility] [place] [address] Care Team Providers Name Role Phone Lucero Stevenson MD Primary Care Provider [phone] Chastity Montero MD Unavailable [phone] Johnnie Alcocer MD Unavailable Janie Petersen RN Unavailable Unavailable Catalino Carballo APRN PAD MAKING MACHINE OPERATOR Unavailable [phone] Encounter Details Date Type Department Care Team Description 05/03/2018 Medical Correspondence [facility] Scan, ADMISSION RECORD Health Info Mgmt Non-Provider HALEY ALYX Carlos MOYA [facility] [address] [place] [address] Social History Tobacco Use Types Packs/Day [...] Haylie Gonzalez, [facility] [address] [place] [address] (Wo rk) 11/15/2022 Virtual Visit IM/Peds Yane Barraza MD [address] [facility] [address] [place] [phone] (Wo rk) 03/03/2023 Virtual Visit Neurology Erlinda Barber MD 420 [facility] 295 [place], [place] [phone] (Wo rk) documented as of this encounter Visit Diagnoses Not on filedocumented in this encounter Care Teams Special Services Agent Relationship Specialty Start Date End Date Lucero Stevenson PCP - General Pediatrics 10/11/11 04/22/19 MD Annetta Catalino Carballo, PCP - Assigned PCP 03/18/18 06/16/18 STEEL INSPECTOR PAD MAKING MACHINE OPERATOR [address] [place] [address] Chastity Montero MD Dermatology 09/23/14 420 [facility] 98 [place], [place] [address] Johnnie Alcocer MD Surgeon General Surgery 03/23/17 [address] [place], [place] [address] Janie Petersen, RN Clinic Will Call Clerk Primary Care - CC 05/03/18 08/09/18 documented as of this encounter
--- OUTSIDE RECORDS SUMMARY | 2022-06-15 13:12 | XMS_ITS | Encounter Summary ---
:1945 Author Organization [facility] Address [address] [place] [address] Care Team Providers Name Role Phone Lucero Stevenson MD Primary Care Provider [phone] Chastity Montero MD Unavailable [phone] Johnnie Alcocer MD Unavailable Janie Petersen RN Unavailable Unavailable Catalino Carballo APRN SKIING TEACHER Unavailable [phone] Encounter Details Date Type Department Care Team Description 05/04/2018 Anticoagulation Therapy [facility] Pulmonary embolism Visit Clinic [place] [facility] (H) [address] [place] [address] Social History Tobacco Use Types [...] encounter Progress Notes Qing Guy RN - 05/04/2018 1:27 PM CDT ANTICOAGULATION FOLLOW-UP Patient Name: Charlette Brush Date: 05/04/2018 Contact Type: Telephone Spoke to patient by phone. INR Clinic received INR result from yesterday today. Patient held her warfarin last night. She has [facility] coming every day to do dressing changes and they will do INR also. Warfarin instructions given to patient over the phone. She verbalized understanding. SUBJECTIVE: Patient Findings Positives Unexplained INR or factor level change Comments Patient denies: extra doses, new illness, new inflammation, bleeding/bruises, medication changes, diet changes. OBJECTIVE INR Date Value Ref Range Status 05/03/2018 4.00 (H) 0.86 - 1.14 Final Comment: This test is intended for monitoring Coumadin therapy. Results are not accurate in patients with prolonged INR due to factor deficiency. ASSESSMENT / PLAN INR assessment SUPRA Recheck INR In: 4 DAYS INR Location Clinic [facility] lab Anticoagulation Summary as of 05/04/2018 INR goal 2.0-3.0 Today's INR 4.00! 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 30 minutes were spent on the phone with patient. Qing Guy RN documented in this encounter Plan of Treatment Upcoming Encounters Date Type Specialty Care Team Description 11/15/2022 Virtual Visit Pharm D Haylie Cheung, [facility] [address] [facility] [place] [address] (Wo rk) 11/15/2022 Virtual Visit IM/Peds Yane Barraza MD [address] [facility] [place] [address] (Wo rk) 03/03/2023 Virtual Visit Neurology Erlinda Barber MD [address] [facility] 295 [place] [address] (Wo rk) documented as of this encounter Visit Diagnoses Diagnosis Pulmonary embolism and infarction (H) documented in this encounter Care Teams Director Mba Relationship Specialty Start Date End Date Lucero Stevenson PCP - General Pediatrics 10/11/11 04/22/19 MD Annetta Catalino Carballo, PCP - Assigned PCP 03/18/18 06/16/18 COFFEE PLANTATION WORKER SKIING TEACHER 17[address] [place] [address] Chastity Montero MD Dermatology 09/23/14 [address] [facility] 98 [place], [place] [address] Johnnie Alcocer MD Surgeon General Surgery 03/23/[address] [place], [place] [address] Janie Petersen, [facility] Phytopathologist Primary Care - CC 05/03/18 08/09/18 documented as of this encounter
--- OUTSIDE RECORDS SUMMARY | 2022-06-15 13:12 | XMS_ITS | Encounter Summary ---
:1945 Author Organization [facility] Address [address] [place] [address] Care Team Providers Name Role Phone Lucero Stevenson MD Primary Care Provider [phone] Chastity Montero MD Unavailable [phone] Johnnie Alcocer MD Unavailable Catalino Carballo APRN [facility] Unavailable [phone] Reason for Visit Reason Comments Medication Refill Encounter Details Date Type Department Care Team Description 04/26/2018 Refill [facility] Stefanie Stevenson Medication Refill Yarelsi Littlejohn MD [address] [place] [address] [place] [address] [phone] Social History Tobacco Use Types Packs/Day Years [...] Miscellaneous Notes Telephone Encounter - Sumi Vinson - 04/27/2018 3:19 PM CDT Duplicate. Sumi Vinson RN documented in this encounter Plan of Treatment Upcoming Encounters Date Type Specialty Care Team Description 11/15/2022 Virtual Visit Pharm D Haylie Cheung, [facility] [address] [facility] [place] [address] (Wo rk) 11/15/2022 Virtual Visit IM/Peds Yane Barraza MD [address] [facility] [place] [address] (Wo rk) 03/03/2023 Virtual Visit Neurology Erlinda Barber MD [address] [facility] 295 [place] [address] (Wo rk) documented as of this encounter Visit Diagnoses Diagnosis terminologist current use of anticoagulant t herapy documented in this encounter Care Teams Molder Trimmer Relationship Specialty Start Date End Date Lucero Stevenson MD PCP - General Pediatrics 10/11/11 04/22/19 Catalino Carballo APRN PCP - Assigned PCP 03/18/18 06/16/18 MUTUEL CLERK [address] [place] [address] Chastity Montero MD MD Dermatology 09/23/14 [address] [facility] 98 [place] [address] Johnnie Alcocer MD Surgeon General Surgery 03/23/17 [address] [facility] 300 [place] [address] documented as of this encounter
--- OUTSIDE RECORDS SUMMARY | 2022-06-15 13:12 | XMS_ITS | Encounter Summary ---
:1945 Author Organization [facility] Address [address] [place] [address] Care Team Providers Name Role Phone Lucero Stevenson MD Primary Care Provider [phone] Chastity Montero MD Unavailable [phone] Johnnie Alcocer MD Unavailable Janie Petersen RN Unavailable Unavailable Lucero Stevenson MD Unavailable [phone] Catalino Carballo COUNTER SALES PERSON LANGUAGE TRANSLATOR Unavailable [phone] Lucero Stevenson MD Unavailable [phone] Danni Marcus RN Unavailable Unavailable Kana Doshi NURSING PROJECT COORDINATOR Unavailable [facility], [facility] Unavailable Unavailable Svetlana Osman [facility] Unavailable [phone] Doris Lai MD Primary Care Provider Haylie Cheung [facility] Unavailable [phone] Galdino Valdez MD Unavailable Galdino Valdez MD Primary Care Provider Jaiden Holcomb MD Primary Care Provider [phone] Kendall Joseph MD Unavailable Erlinda Barber MD Unavailable Jaiden Holcomb MD Unavailable [phone] Lucero Stevenson MD Primary Care Provider [phone] Doris Lai MD Primary Care Provider Encounter Details Date Type Department Care Team Description 04/18/2018 Records - [facility] [place], Korina butterfiled MD, [facility] [place] [phone] [phone] [place] [address] (Wo rk) Social History Tobacco Use Types [...] Visit Haylie Wakefield, [facility] [address] [facility] [address] [place], [place] [phone] (Wo rk) 11/15/2022 Virtual Visit IM/Yane Mathias MD [address] [facility] [place] [address] (Wo rk) 03/03/2023 Virtual Visit Neurology Erlinda Barber MD [address] [facility] 295 [place], [place] [address] (Wo rk) documented as of this encounter Procedures Procedure Name Priority Date/Time Associated Comments Diagnosis IRON Routine 04/18/2018 5:28 AM Results f or this CDT procedure are i n the results section. HEMOGLOBIN Routine 04/18/2018 5:28 AM Results f or this CDT procedure are i n the results section. FERRITIN Routine 04/18/2018 5:28 AM Results f or this CDT procedure are i n the results section. ERYTHROCYTE Routine 04/18/2018 5:28 AM Results f or this SEDIMENTATION RATE CDT procedure are in AUTO the results section. CRP INFLAMMATION Routine 04/18/2018 5:28 AM Resul ts for this CDT procedure are i n the results section. ALBUMIN LEVEL Routine 04/18/2018 5:28 AM Results for this CDT procedure are i n the results section. documented in this encounter Results (ABNORMAL) Erythrocyte sedimentation rate auto (04/18/2018 5:28 AM CDT) [facility] Method Time Signature Erythrocyte 33 (H) 0 - 20 04/18/2018 [facility] Sedimentation Rate mm/hr 12:14 PM CDT [facility] Specimen Anatomical Collection Method / Collection Time Recei yduy Time (Source) Location / Volume Laterality Blood specimen STRUCTURE OF LEFT Venipuncture / 04/18/2018 5:28 09/2017 (specimen) HAND / Unknown Unknown AM CDT 10:10 AM CDT Tracey Tena MD, MD LAB - BLOOD ORDERABLES Performing Organization Address City/State/ZIP Code Phon [place] [id number] [place] [address] (ABNORMAL) Iron (04/18/2018 5:28 AM CDT) P athologist Signature Iron 24 (L) 42 - 175 04/18/2018 HEALTH ug/dL 10:35 AM CDT [facility] Specimen Anatomical Collection Method / Collection Time Recei yudy Time (Source) Location / Volume Laterality Blood specimen STRUCTURE OF LEFT Venipuncture / 04/18/2018 5:28 09/2017 (specimen) HAND / Unknown Unknown AM CDT 10:10 AM CDT Tracey Tena MD, MD LAB - BLOOD ORDERABLES Performing Organization Address [facility] Phon [place] [address] [address] [facility] (ABNORMAL) Hemoglobin (04/18/2018 5:28 AM CDT) athologist Signature Hemoglobin 11.0 (L) 12.0 - 04/18/2018 HEALTH 16.0 g/dL 10:24 AM CDT [facility] Specimen Anatomical Collection Method / Collection Time Recei yudy Time (Source) Location / Volume Laterality Blood specimen STRUCTURE OF LEFT Venipuncture / 04/18/2018 5:28 09/2017 (specimen) HAND / Unknown Unknown AM CDT 10:10 AM CDT Tracey Tena MD, MD LAB - BLOOD ORDERABLES Performing Organization Address [facility] Phon [place] [address] [address] [facility] Ferritin (04/18/2018 5:28 AM CDT) P athologist Signature Ferritin 33 10 - 130 04/18/2018 HEALTH ng/mL 11:08 AM CDT [facility] Specimen Anatomical Collection Method / Collection Time Recei yudy Time (Source) Location / Volume Laterality Blood specimen STRUCTURE OF LEFT Venipuncture / 04/18/2018 5:28 09/2017 (specimen) HAND / Unknown Unknown AM CDT 10:10 AM CDT Tracey Tena MD, MD LAB - BLOOD ORDERABLES Performing Organization Address City/State/ZIP [facility] Phon [place] [address] [phone] [address] [facility] (ABNORMAL) CRP inflammation (04/18/2018 5:28 AM CDT) P athologist Signature CRP 1.3 (H) 0.0 - 0.8 04/18/2018 HEALTH mg/dL 10:35 AM CDT [facility] Specimen Anatomical Collection Method / Collection Time Recei yudy Time (Source) Location / Volume Laterality Blood specimen STRUCTURE OF LEFT Venipuncture / 04/18/2018 5:28 09/2017 (specimen) HAND / Unknown Unknown AM CDT 10:10 AM CDT Tracey Tena MD, MD LAB - BLOOD ORDERABLES Performing Organization Address City/[facility] Phon e Number [facility] [place] [address] [address] [facility] (ABNORMAL) Albumin level (04/18/2018 5:28 AM CDT) P athologist Signature Albumin 2.4 (L) 3.5 - 5.0 04/18/2018 HEALTH g/dL 10:35 AM CDT [facility] Specimen Anatomical Collection Method / Collection Time Recei yudy Time (Source) Location / Volume Laterality Blood specimen STRUCTURE OF LEFT Venipuncture / 04/18/2018 5:28 09/2017 (specimen) HAND / Unknown Unknown AM CDT 10:10 AM CDT Tracey Tena MD, MD LAB - BLOOD ORDERABLES Performing Organization Address City/[facility]/ZIP Code Phon e Number [facility] [place] [address] [facility] 2450 [facility] [address] [place] [address] [facility] documented in this encounter Visit Diagnoses Not on filedocumented in this encounter Care Teams Slitting Machine Operator Helper Relationship Specialty Start Date End Date Lucero Stevenson, PCP - General Pediatrics 10/11/11 Lucero Stevenson, PCP - Assigned PCP 06/17/18 09/18/18 MD TOÑO LOPEZ [address] [place], [place] [phone] Catalino Carballo, PCP - Assigned PCP 03/18/18 06/16/18 COUNTER SALES PERSON [facility] 17[address] [place] [address] Doris Lai MD PCP - General Internal Medicine 04/23/19 05/14/[address] [place] [address] [place] [phone] Galdino Valdez MD PCP - General Family Practice 11/29/19 02/12/20 [address] [place] [address] Jaiden Holcomb PCP - General Internal Medicine 02/13/2010/03 MD Jayesh [address] [place] [address] [place] [address] Lucero Stevensno, PCP - General 05/15/1907/23/18 MD TOÑO LOPEZ [address] [place] [address] Doris Lai MD PCP - General 05/24/19 11/28/[address] [place] [address] [place] [phone] Chastity Montero MD Dermatology 09/23/14 [address] [facility] [address] [place], [place] [address] Johnnie Alcocer MD Surgeon General Surgery 03/23/[address] [place], [place] [phone] Janie Petersen, CH[facility]LER Clinic Care Primary Care - CC 05/03/18 9 Coordinator Lucero Stevenson, Assigned PCP 06/17/18 MD [place] [id number] [place] [address] Danni Marcus, CHANDLER Personal Advocate & 01/09/1901/17 Liaison (PAL) Kana Doshi LSW Clinic Care Primary Care - CC 03/19/19 05/07/19 Coordinator Fernando, Ea Complex 04/23/19 Svetlana Osman, Pharmacist Pharmacotherapy 04/23/19 [facility] [address] [place] [place] [address] Haylie Cheung, Pharmacist Pharmacist 09/11/19 [facility] [address] [place] [address] [place] [address] Galdino Valdez MD Assigned PCP 11/10/19 05/23/20 [address] [place], [place] [phone] Opal, Assigned Sleep 05/08/20 03/27/21 Kendall Meehan MD Provider [address] [place], [place] [phone] Erlinda Barber MD Assigned Neuroscience 05/08/20 01/26/[address] [facility] [address] Provider [place], [place] [phone] Jaiden Holcomb Assigned PCP 05/24/20 MD Jayesh 9[address] [place], [place] [address] documented as of this encounter
--- OUTSIDE RECORDS SUMMARY | 2022-06-15 13:12 | XMS_ITS | Encounter Summary ---
:1945 Author Organization [place] Address [address] [place] [address] Care Team Providers Name Role Phone Lucero Stevenson MD Primary Care Provider [phone] Chastity Montero MD Unavailable [phone] Johnnie Alcocer MD Unavailable Catalino Carballo APRN [facility] Unavailable [phone] Reason for Visit Reason Onset Date Comments Medication Refill PANtoprazole (PROTON IX) EC tablet 40 mg; warfarin (COUMADIN) 10 MG tab let Refill Request 04/26/2018 warfarin (COUMADIN) 3 MG tablet; warfarin (COUMADIN) 6 MG tablet Encounter Details Date Type Department Care Team Description 04/26/2018 Refill [facility] Lucero Stevenson [facility] [place] Littlejohn MD (PANtoprazole [address] [facility] Y (PROTONIX) EC tablet [address] [address] [place] [address] RD mg; warfarin (COUMADIN) [address] [place] [address] 10 MG tablet); Refill [place] [address] Request (warfarin [phone] (COUMADIN ) 3 MG tablet; warfarin (COUMA DIN) 6 MG tablet) Social History Tobacco Use Types [...] Encounter - Lucero Stevenson MD - 04/30/2018 5:40 PM CDT Noted. Lucero Stevenson MD Telephone Encounter - Elizabeth Marrero - 04/30/2018 2:37 PM CDT Called patient she has been in the hospital since and then went to a rehabilitation center for the rest of the time and has been home since Monday. She has an appointment with Dr Machado on 05/03 since you were not available. She said that a nurse was going to the rehab weekly to do INR's. She will be having an INR done today in her home because she has a nurse coming in daily to care for a wound that she has that needs dressing changes everyday. She did not schedule any future INR's here or any appointment with Dr Stevenson since she has the appt with Dr Machado. Telephone Encounter - Lucero Stevenson MD - 04/27/2018 12:50 PM CDT Script sent for 30 day supply. Please help her schedule appt [facility]. Lucero Stevenson MD Telephone Encounter - Hoda Ronquillo RN - 04/27/2018 12:03 PM CDT Routing refill request to provider for review/approval because: Patient needs to be seen because it has been more than 1 year since last office visit. No anticoagulation encounters since 10/09/17 Hoda Ronquillo RN Telephone Encounter - Guero Edward Ramon - 04/26/2018 1:54 PM CDT Requested Prescriptions Pending Prescriptions Disp Refills ??? pantoprazole (PROTONIX) 20 MG EC tablet [Pharmacy Med Name: PANTOPRAZOLE 20MG TABLETS] DISCONTINUED Last Written Prescription Date: 06/01/2011 Last Fill Quantity: na, # refills: na Last office visit: 03/14/2017 with prescribing provider: Lucero Stevenson MD Future Office Visit: Next 5 appointments (look out 90 days) May 03, 2018 11:50 AM CDT [facility] [address] [place] [address] 90 tablet 0 Sig: TAKE 1 TABLET BY MOUTH EVERY DAY. PPI Protocol Passed 04/26/2018 1:53 PM Passed - Not on Clopidogrel (unless Pantoprazole ordered) Passed - No diagnosis of osteoporosis on record Passed - Recent (12 mo) or future [...] 18 or older Passed - No active pregnacy on record Passed - No positive test in past 12 months ??? warfarin (COUMADIN) 10 MG tablet [Pharmacy Med Name: WARFARIN SOD 10MG (TEN MG) TB WHITE] Last Written Prescription Date: 08/23/2017 Last Fill Quantity: 40 tablet, # refills: 1 Last office visit: 03/14/2017 with prescribing provider: Lucero Stevenson MD Future Office Visit: Next 5 appointments (look out 90 days) May 03, 2018 11:50 AM CDT Office Visit with Rick [facility]ado [facility] [address] [place] [address] [address] [place] [address] 38 tablet 0 Sig: TAKE 1 TABLET BY MOUTH ON MONDAY, MONDAY AND MONDAY DIRECTED Vitamin K Antagonists Failed 04/26/2018 1:53 PM Failed - INR is within goal in the past 6 weeks Confirm INR is within goal in the past 6 weeks. Recent Labs Lab Test 10/28/17 1515 INR 1.96* Passed - Recent (12 mo) or future [...] the refill encounter. Passed - Patient is 18 years of age or older Passed - Patient is not Passed - No positive on file in past 12 months ??? warfarin (COUMADIN) 3 MG tablet [Pharmacy Med Name: WARFARIN SOD 3MG TABLETS (EDWARD)] Last Written Prescription Date: na Last Fill Quantity: na, # refills: na Last office visit: 03/14/2017 with prescribing provider: Lucero Stevenson MD Future Office Visit: Next 5 appointments (look out 90 days) May 03, 2018 11:50 AM CDT [facility] [address] [place] [address] [address] [place] [address] 51 tablet 0 Sig: TAKE 1 TABLET BY MOUTH 4 TIMES A WEEK(MONDAY, MONDAY, MONDAY, MONDAY) DIRECTED. Vitamin K Antagonists Failed 04/26/2018 1:53 PM Failed - INR is within goal in the past 6 weeks Confirm INR is within goal in the past 6 weeks. Recent Labs Lab Test 10/28/17 1515 INR 1.96* Passed - Recent (12 mo) or future [...] the refill encounter. Passed - Patient is 18 years of age or older Passed - Patient is not Passed - No positive on file in past 12 months ??? warfarin (COUMADIN) 6 MG tablet [Pharmacy Med Name: WARFARIN SOD 6MG TAB (BLUISH GREEN)] Last Written Prescription Date: na Last Fill Quantity: na, # refills: na Last office visit: 03/14/2017 with prescribing provider: Lucero Stevenson MD Future Office Visit: Next 5 appointments (look out 90 days) May 03, 2018 11:50 AM CDT Office Visit with Rick Machado MD [facility] [place] ([facility] [address] [place] [address] [address] [place] [address] 51 tablet 0 Sig: TAKE 1 TABLET BY MOUTH 4 TIMES A WEEK(MONDAY, MONDAY, MONDAY, MONDAY) DIRECTED. Vitamin K Antagonists Failed 04/26/2018 1:53 PM Failed - INR is within goal in the past 6 weeks Confirm INR is within goal in the past 6 weeks. Recent Labs Lab Test 10/28/17 1515 INR 1.96* Passed - Recent (12 mo) or future [...] the refill encounter. Passed - Patient is 18 years of age or older Passed - Patient is not Passed - No positive on file in past 12 months documented in this encounter Plan of Treatment Upcoming Encounters Date Type Specialty Care Team Description 11/15/2022 Virtual Visit Haylie Wakefield, [facility] [address] [place], [place] [phone] (Wo rk) 11/15/2022 Virtual Visit IM/Peds Yane Barraza MD [address] [place] [phone] (Wo rk) 03/03/2023 Virtual Visit Neurology Erlinda Barber MD [address] [facility] [address] [place] [address] (Wo rk) documented as of this encounter Visit Diagnoses Diagnosis Gastroesophageal reflux disease without esophagitis - Primary Esophageal reflux [facility] current use of anticoagulant t herapy documented in this encounter Care Teams Shade Bander Relationship Specialty Start Date End Date Lucero Stevenson MD PCP - General Pediatrics 10/11/11 04/22/19 Catalino Carballo APRN PCP - Assigned PCP 03/18/18 06/16/18 [facility] [address] [place] [address] Chastity Montero MD MD Dermatology 09/23/14 [address] [facility] 98 [place], [place] [phone] Johnnie Alcocer MD Surgeon General Surgery 03/23/17 [address] [facility] [address] [place], [place] [address] documented as of this encounter
--- OUTSIDE RECORDS SUMMARY | 2022-06-15 13:12 | XMS_ITS | Encounter Summary ---
:1945 Author Organization [place] Address [address] [place] [address] Care Team Providers Name Role Phone Lucero Stevenson MD Primary Care Provider [phone] Chastity Montero MD Unavailable [phone] Johnnie Alcocer MD Unavailable Janie Petersen RN Unavailable Unavailable Catalino Carballo APRN [facility] Unavailable [phone] Reason for Visit Reason Onset Date Comments Home Care/Hospice 05/07/2018 Verbal orders Encounter Details Date Type Department Care Team Description 05/07/2018 Telephone [facility] Lucero Stevenson Home Care/Hospice Clinic Yarelis Littlejohn MD (Verbal orders) [address] [facility] [address] [place] [address] [address] [place] [address] [place] [address] [phone] Social History Tobacco Use Types Packs/Day Years [...] encounter Miscellaneous Notes Telephone Encounter - Marimar Shelton RN - 05/07/2018 5:03 PM CDT Called Kristie and provided VO for below. Marimar Shelton RN -- [facility] Telephone Encounter - Gisele Reed - 05/07/2018 3:24 PM CDT Reason for call: Home Healthcare Reason for Call: Home Health Care Kristie with [facility] called regarding (reason for call): Verbal orders Orders are needed for this patient. OT PT: NA OT: Continued therapy for 3 times a week for 4 weeks. Senior Care: NA Pt Provider: Dr. Stevenson Phone Number Homecare Nurse can be reached at: [phone] Can we leave a detailed message on this number? YES Phone number patient can be reached at: Home number on file [phone] (home) Best Time: any Call taken on 05/07/2018 at 3:25 PM by Gisele Reed Phone number to reach patient: Home number on file [phone] (home) Best Time: any Can we leave a detailed message on this number? Not Applicable documented in this encounter Plan of Treatment Upcoming Encounters Date Type Specialty Care Team Description 11/15/2022 Virtual Visit Haylie Wakefield, [facility] [address] [place] [address] (Wo rk) 11/15/2022 Virtual Visit IM/Yane Mathias MD [address] [facility] [address] (Wo rk) 03/03/2023 Virtual Visit Neurology Erlinda Barber MD [address] [facility] [address] [facility] [address] [place], [place] [address] (Wo rk) documented as of this encounter Visit Diagnoses Not on filedocumented in this encounter Care Teams Shank Scourer Relationship Specialty Start Date End Date Lucero Stevenson PCP - General Pediatrics 10/11/11 04/22/19 MD Annetta Catalino Carballo, PCP - Assigned PCP 03/18/18 06/16/18 INSPECTOR WATCH PARTS LEAD PHP DEVELOPER [address] [place] [address] Chastity Montero MD Dermatology 09/23/[address] [facility] [address] [place], [place] [address] Johnnie Alcocer MD Surgeon General Surgery 03/23/17 [address] [facility] [address] [place], [place] [id number] Janie Petersen, [facility]LER Clinic Roving Marker Primary Care - CC 05/03/18 08/09/18 documented as of this encounter
--- OUTSIDE RECORDS SUMMARY | 2022-06-15 13:12 | XMS_ITS | Encounter Summary ---
:1945 Author Organization [place] Address [address] [place] [address] Care Team Providers Name Role Phone Lucero Stevenson MD Primary Care Provider [phone] Chastity Montero MD Unavailable [phone] Johnnie Alcocer MD Unavailable Catalino Carballo APRN [facility] Unavailable [phone] Reason for Visit Reason Onset Date Comments WOUND CARE CLINIC 05/02/2018 Encounter Details Date Type Department Care Team Description 05/02/2018 Telephone [facility] Wound Lavern Stevenson WOUND CARE CLINIC Clinic Oumou Littlejohn MD [address] [facility] [address] [place] [address] [place] [address] (Wo rk) Social History Tobacco [...] Telephone Encounter - Mari Thurman RN - 05/02/2018 2:46 PM CDT Received referral from Dr. Stevesnon for buttocks ulcer. Spoke to home care nurse Rosa from [facility] hoping we could see patient sooner, advised that our next appointment is 2 weeks out. Patient needs 2 days to make appointments with [facility]. Patientscheduled at her preference for time due to metro. documented in this encounter Plan of Treatment Upcoming Encounters Date Type Specialty Care Team Description 11/15/2022 Virtual Visit Pharm D Haylie Cheung, [facility] [address] [place] [address] (Wo rk) 11/15/2022 Virtual Visit [place] [address] [place] [address] [place] [address] (Wo rk) 03/03/2023 Virtual Visit Neurology Erlinda Barber MD [address] [facility] [address] [place] [address] (Wo rk) documented as of this encounter Visit Diagnoses Not on filedocumented in this encounter Care Teams Pmo Business Analyst Relationship Specialty Start Date End Date Lucero Stevenson MD PCP - General Pediatrics 10/11/11 04/22/19 Catalino Carballo APRN PCP - Assigned PCP 03/18/18 06/16/18 CERTIFIED MEDICAL CODING SPECIALIST [address] [place] [address] Chastity Montero MD MD Dermatology 09/23/14 [address] [facility] [address] [place], [place] [address] Johnnie Alcocer MD Surgeon General Surgery 03/23/17 [address] [facility] [address] [place] [address] documented as of this encounter
--- OUTSIDE RECORDS SUMMARY | 2022-06-15 13:12 | XMS_ITS | Encounter Summary ---
:1945 Author Organization [facility] Address [address] [place] [address] Care Team Providers Name Role Phone Lucero Stevenson MD Primary Care Provider [phone] Chastity Montero MD Unavailable [phone] Johnnie Alcocer MD Unavailable Janie Petersen RN Unavailable Unavailable Catalino Carballo APRN [employer] Unavailable [phone] Encounter Details Date Type Department Care Team Description 05/07/[address] [facility] Pulmonary embolism and infarction (H); Visit Clinic [place] medical terminologist current use of ant icoagulant therapy [address] [facility] [address] [place] [...] encounter Progress Notes Qing Guy RN - 05/07/2018 8:00 AM CDT ANTICOAGULATION FOLLOW-UP Patient Name: Charlette Brush Date: 05/07/2018 Contact Type: Telephone Call received from Yina Martinez Home Care nurse, with INR result. Follow up instructions given over the phone to Home Care nurse for warfarin management. SUBJECTIVE: Patient Findings Positives Unexplained INR or factor level change OBJECTIVE INR Date Value Ref Range Status 05/07/2018 3.3 Final ASSESSMENT / PLAN INR assessment SUPRA Recheck INR In: 1 WEEK INR Location Homecare INR Anticoagulation Summary as of 05/07/2018 INR goal 2.0-3.0 Today's INR 3.3! Warfarin maintenance plan No maintenance plan Full warfarin instructions 05/07: 6 mg; 05/08: 10 mg; 05/09: 6 mg; 05/10: 10 mg; 05/11: 6 mg; 05/12:10 mg; 05/13: 10 mg Weekly warfarin total 60 mg Plan last modified Qing Guy RN (05/04/2018) Next INR check 05/14/2018 Target end date Indefinite Indications 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] Anticoagulation Episode Summary INR check location Coumadin Clinic Preferred lab Send INR reminders to ANTICOAG CLINIC Comments 7.5mg, 3mg, 6mg & 10mg tabs - devaughn dose / [facility] daily - Michelle [phone]/ APPT CARD ONLY Anticoagulation Care Providers Provider Role Specialty Phone number Lucero Stevenson MD Internal Medicine [phone] See the Encounter Report to view Anticoagulation Flowsheet and Dosing Calendar (Go to Encounters tabin chart review, and find the Anticoagulation Therapy Visit) Dosage adjustment made based on physician directed care plan. Qing Guy RN documented in this encounter Plan of Treatment Upcoming Encounters Date Type Specialty Care Team Description 11/15/2022 Virtual Visit Pharm Haylie Gonzalez, [facility] [address] [facility] [place] [address] (Wo rk) 11/15/2022 Virtual Visit IM/Peds Yane Barraza MD [address] [facility] [place] [address] (Wo rk) 03/03/2023 Virtual Visit Neurology Erlinda Barber MD [address] [facility] [address] [place] [address] (Wo rk) documented as of this encounter Procedures Procedure Name Priority Date/Time Associated Diagnosis Comme nts INR Routine 05/07/2018 11:33 AM Results for this CDT procedure are i n the results section . documented in this encounter Results INR (05/07/2018 11:33 AM CDT) P athologist Signature INR 3.3 EXTERNAL LAB Specimen (Source) Anatomical Location Collection Method / Collectio n Time Received Time / Laterality Volume Blood specimen (specimen) Lucero Stevenson MD LAB - BLOOD ORDERABLES Performing Organization Address City/State/ZIP Code Phon e Number EXTERNAL LAB EXTERNAL LAB External Lab documented in this encounter Visit Diagnoses Diagnosis Pulmonary embolism and infarction (H) [facility] current use of anticoagulant t herapy documented in this encounter Care Teams Student Relationship Specialty Start Date End Date Lucero Stevenson PCP - General Pediatrics 10/11/11 04/22/19 MD Annetta Catalino Carballo, [place] - Assigned PCP 03/18/18 06/16/18 MANAGER MECHANICAL MAINTENANCE [employer]OVE MECHANIC [address] [place] [address] Chastity Montero MD Dermatology 09/23/14 [address] [facility] [address] [place], [place] [address] Johnnie Alcocer MD Surgeon General Surgery 03/23/17 [address] [facility] [address] [place] [address] Janie Petersen, [facility] Clinic Voice Teacher Primary Care - CC 05/03/18 08/09/18 documented as of this encounter
--- OUTSIDE RECORDS SUMMARY | 2022-06-15 13:12 | XMS_ITS | Encounter Summary ---
:1945 Author Organization [place] Address [address] [place] [address] Care Team Providers Name Role Phone Lucero Stevenson MD Primary Care Provider [phone] Chastity Montero MD Unavailable [phone] Johnnie Alcocer MD Unavailable Catalino Carballo APRN [facility] Unavailable [phone] Encounter Details Date Type Department Care Team Description 05/01/2018 Anticoagulation [facility] Bethel Stevenson rm current use of anticoagulant therapy (Primary Dx); Therapy Visit Clinic Yarelis Littlejohn, Pulmonary embolism and infar ction (H) [address] Aditi Day MD [facility] [address] [place] [place] [address] [place], [place] [phone] [address] Social History Tobacco Use Types Packs/Day Years [...] encounter Progress Notes Krystyna Sharp, CHANDLER - 05/01/2018 8:24 AM CDT ANTICOAGULATION FOLLOW-UP CLINIC VISIT Patient Name: Charlette Brush Date: 05/01/2018 Contact Type: Telephone Call received from [facility](Mariaelena) at [phone] yesterday at 4:25 pm with pt's INR result. Pt had necrotizing fascitis & was seen in the hospital multiple times since 10/18/17, she was transferred to TCU([facility]). HC nurse states that TCU has been managing her INR, but pt is at homenow(discharged from TCU). Has an ED f/u appointment with on 05/03. Requesting us to dose her coumadin. Last INR appointment in clinic was on 10/09/17. I was told by HC nurse that pt has been taking coumadin 10 mg on ,, & 9 mg all other days. Her last INR(04/27) was 2.7. Yesterday's INR was 3.1, denies any new concerns, bleeding/bruising or abx intake. Advised her to continue her current coumadin dose, monitor & recheck on 05/03 when she comes in to see . Pt is due for new referral. Will send referral renewal to pcp. ED notes: Charlette Brush is a 72 year old female who presents to the emergency department today for evaluationof wound check. The patient reportedly fell while at home, lying on the floor for 3 days starting on10/15/17. She was admitted to [facility] on 10/18/17 for rhabdomyolysis and had some skin breakdown at that time. The patient was discharged from from [facility] on October 25, 2017 for left lower extremity cellulitis, rhabdomyolysis, and multiple skin ulcerations to a TCU. She finished her round of Clindamycin on October 27, 2017. Since discharge from [facility], she has been in transitional care at [facility]. Since the fall, her wounds have progressed and have been frequently exposed to patient's stool. The nursing staff there noticed explosive diarrhea and unstable ulcerin the left thigh/buttock region with new green discharge and sent her here to the emergency department. In addition to the thigh wound, she also has other wounds as noted in the physical exam below. Steve fregoos denies any fevers or increasing pain. She denies any abdominal pain or vomiting. She reports feeling generally weak which is significantly worse today. SUBJECTIVE: Patient Findings Positives Hospital admission OBJECTIVE INR Date Value Ref Range Status 04/30/2018 3.1 Final ASSESSMENT / PLAN INR assessment THER Recheck INR In: 3 DAYS INR Location Clinic Anticoagulation Summary as of 05/01/2018 INR goal 2.0-3.0 Today's INR 3.1! (04/30/2018) Warfarin maintenance plan 10 mg (10 mg x 1) on Mon, Wed, Fri; 7.5 mg (7.5 mg x 1) all other days Full warfarin instructions 10 mg on Mon, Wed, Fri; 7.5 mg all other days Weekly warfarin total 60 mg No change documented Krystyna Sharp RN Plan last modified Susie Murphy (09/26/2016) Next INR check 05/03/2018 Target end date Indefinite Indications 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] Anticoagulation Episode Summary INR check location Coumadin Clinic Preferred lab Send INR reminders to [facility] Comments 7.5mg & 10mg tabs - devaughn dose // APPT CARD ONLY Anticoagulation Care Providers Provider Role Specialty Phone number Lucero Stevenson MD Internal Medicine [phone] See the Encounter Report to view Anticoagulation Flowsheet and Dosing Calendar (Go to Encounters tabin chart review, and find the Anticoagulation Therapy Visit) Krystyna Sharp RN documented in this encounter Plan of Treatment Upcoming Encounters Date Type Specialty Care Team Description 11/15/2022 Virtual Visit Haylie Wakefield, [facility] [address] [place], [place] [address] (Wo rk) 11/15/2022 Virtual Visit IM/Peds Yane Barraza MD [address] [facility] [address] [facility] [place] [address] (Wo rk) 03/03/2023 Virtual Visit Neurology Erlinda Barber MD [address] [facility] [address] [place] [address] (Wo rk) documented as of this encounter Procedures Procedure Name Priority Date/Time Associated Diagnosis Comme nts INR Routine 04/30/2018 Results for thi s procedure are in the resu lts section. documented in this encounter Results (ABNORMAL) INR (12/26/2018 9:35 AM CDT) athologist Signature INR 2.70 (H) 0.86 - 1.14 12/26/2018 [place] 9:41 AM CDT [facility] Comment: This test is intended for monitoring Cou madin therapy. ??Results are not accurate in patients with prolonged INR due to factor deficiency. Specimen Anatomical Collection Method Collection Time Receive d Time (Source) Location / / Volume Laterality Blood specimen 12/26/2018 9:35 AM 019 9:37 (specimen) CDT AM CDT Lucero Stevenson MD LAB - BLOOD ORDERABLES Performing Organization Address City/[facility]/ZIP Code Phon e Number [facility] [address] [place] [address] INR (04/30/2018) athologist Signature INR 3.1 [facility] Specimen (Source) Anatomical Location Collection Method / Collectio n Time Received Time / Laterality Volume Blood specimen (specimen) Patient Reported LAB - BLOOD ORDERABLES Performing Organization Address City/State/ZIP Code Phon e Number [facility] [address] [place], [place] [address] documented in this encounter Visit Diagnoses Diagnosis correction current use of anticoagulant t herapy - Primary Pulmonary embolism and infarction (H) documented in this encounter Care Teams Cloth Examiner Hand Relationship Specialty Start Date End Date Lucero Stevenson MD PCP - General Pediatrics 10/11/11 04/22/19 Catalino Carballo APRN PCP - Assigned PCP 03/18/18 06/16/18 [facility] [address] [place] [address] Chastity Montero MD MD Dermatology 09/23/14 [address] [place] [address] [facility] 98 [place], [place] [address] Johnnie Alcocer MD Surgeon General Surgery 03/23/17 [address] [facility] [address] [place], [place] [id number] documented as of this encounter
--- OUTSIDE RECORDS SUMMARY | 2022-06-15 13:12 | XMS_ITS | Encounter Summary ---
:1945 Author Organization [facility] Address [address] [place] [address] Care Team Providers Name Role Phone Lucero Stevenson MD Primary Care Provider [phone] Chastity Montero MD Unavailable [phone] Johnnie Alcocer MD Unavailable Janie Petersen RN Unavailable Unavailable Catalino Carballo APRN MORTICIAN INVESTIGATOR Unavailable [phone] Reason for Visit Reason Comments Toenail pain and possible infection, wondering about nail care Encounter Details Date Type Department Care Team Description 05/07/2018 Office Visit [facility] Jazlyn Onsandyomyclinda sis (Primary Dx); Clinic Neboclinton Ortiz DPM Alopecia with ten nail dystrophy [address] [place] [address] [address] [place], [place] [address] [phone] Social History Tobacco Use Types Packs/Day Years [...] - - Temperature - - Respiratory Rate 16 05/07/2018 1:59 PM CDT Oxygen Saturation - - Inhaled Oxygen Concentration - - Weight 165.3 kg (364 lb 6.4 oz) 05/07/2018 1:59 PM CDT Height 167.6 cm (5' 6) 05/07/2018 1:59 PM CDT Body Mass Index 58.82 05/07/2018 1:59 PM CDT documented in this encounter Patient Instructions Patient InstructionsGwen Hernandez - 05/07/2018 2:00 PM CDT Thank you for choosing [facility]! DR[facility] LOCATIONS: MONDAY - Monday - [place] [address] [facility] [address] [place] [address] [place] [address] [phone] MONDAY AM - [place] MONDAY PM - [facility] [place] [address] [facility] [address] [place] [address] [place] [address] MONDAY AM - [place] SET UP SURGERY: [phone] [address] APPOINTMENTS: [phone] [place] [address] BILLING QUESTIONS: [phone] FAX NUMBER: [phone] Follow Up: as needed ROUTINE FOOT CARE NURSES [facility] [phone] [facility] [phone] [facility] [phone] [facility] [phone] [facility] [phone] [facility] [phone] Please call one of the above companies for insurance coverage, cost, and location information. Body Mass Index (BMI) Many things can cause foot and ankle problems. Foot structure, activity level, foot mechanics and injuries are common causes of pain. One very important issue that often goes unmentioned, is body weight. Extra weight can cause increased stress on muscles, ligaments, bones and tendons. Sometimes just afew extra pounds is all it takes to put one over her/his threshold. Without reducing that stress, itcan be difficult to alleviate pain. Some people are uncomfortable addressing this issue, but we feelit is important for you to think about it. As Foot & Ankle specialists, our job is addressing the lower extremity problem and possible causes. Regarding extra body weight, we encourage patients to discuss diet and weight management plans with their primary care doctors. It is this team approach that gives you the best opportunity for pain relief and getting you back on your feet. documented in this encounter Progress Notes Angel Godinez DPM - 05/07/2018 2:00 PM CDT Foot & Ankle Surgery May 07, 2018 CC: toenail I was asked to see Charlette Brush regarding the chief complaint by: self HPI: Pt is a 73 year old female who presents with above complaint. toenails cleaned up/cut; toe Rt2nd. shooting for 2nd toe Rt foot. Pain 5/10 periodically, worse with standing. no one would for treatment. She's been at a TCU since november 15 to sacral wound and necrotizing fasciitis, but left the TCU prior to having her nails trimmed. ROS: Pos for CC. The patient denies current nausea, vomiting, chills, fevers, belly pain, calf pain,chest pain or SOB. Complete remainder of ROS is otherwise neg. VITALS: Vitals: 05/07/18 1359 Resp: 16 Weight: (!) 364 lb 6.4 oz (165.3 kg) Height: 5' 6 (1.676 m) PMH: Past Medical History: Diagnosis Date ??? BENIGN HYPERTENSION 07/30/2003 ??? benign positional vertigo 09/08/2004 s/p canolith repositioning 07/21 ??? Coagulation disorder (H) Pulmonary embolism 2001 ??? GERD (gastroesophageal reflux disease) ??? CEFERINO (obstructive sleep apnea) nightly CPAP ??? Other lymphedema 11/04/2003 ??? PULM EMBOLISM/INFARCT NOS 11/20/2001 SXHX: Past Surgical History: Procedure Laterality Date ??? CHOLECYSTECTOMY, OPEN 1970 ??? COLONOSCOPY N/A 01/13/2015 Procedure: COLONOSCOPY; Surgeon: Jose Juan Castaneda MD; Location: [facility] OR ? ? TONSILLECTOMY & ADENOIDECTOMY MEDS: Current Outpatient Prescriptions Medication ??? acetaminophen (TYLENOL) [...] SMOOTH TEXTURE 58.6 % POWD ??? NYSTOP 219079 UNIT/GM POWD powder ??? omeprazole (PRILOSEC) 40 MG capsule ??? pantoprazole (PROTONIX) 20 MG EC [...] No current facility-administered medications for this visit. ALL: Allergies Allergen Reactions ??? Cephalexin Hives Keflex - hives ??? Lanolin Other (See Comments) skin irritation ??? Lisinopril Cough ??? Neomycin Other (See Comments) skin irritation ??? Penicillins Hives ??? Bactroban [Mupirocin Calcium] Rash FMH: Family History Problem Relation Age of Onset [...] ??? Colon Cancer No family hx of SocHx: Social History Social History ??? Marital status: Single Spouse name: N/A ??? Number of children: 1 ??? 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 Smoking status: Never Smoker ??? Smokeless tobacco: Never Used ??? Alcohol use No ??? Drug use: No ??? Sexual activity: No Other Topics Concern ??? Parent/Sibling W/ Cabg, Mi Or Angioplasty Before 65f 55m? Yes Social History Narrative EXAMINATION: Gen: No apparent distress Neuro: A&Ox3, no deficits Psych: Answering questions appropriately for age and situation with normal affect Head: NCAT Eye: Visual scanning without deficit Ear: Response to auditory stimuli wnl Lung: Non-labored breathing on RA noted Abd: NTND per patient report Lymph: Neg for pitting/non-pitting edema BLE Vasc: Pulses palpable, CFT minimally delayed Neuro: Light touch sensation intact to all sensory nerve distributions without paresthesias Derm: Nails long 1-5 bilateral, including multiple mycotic nails. R 2nd nail is very long and causing some inflammation in toe 2/2 to nail rubbing in shoe MSK: ROM, strength wnl without limitation, no pain on palpation noted. Calf: Neg for redness, swelling or tenderness Assessment: 73 year old female with onychomycosis/dystrophic nails with 2nd toe paronychia Plan: Discussed etiologies, anatomy and options 1. Onychomycosis/dystrophic nails with 2nd toe paronychia -ABN signed, nails trimmed in length and thickness > 6 mycotic nails -suspect R 2nd paronychia is from her very long 2nd toenail rubbing in her shoes. Anticipate this resolves with trimming of her nails -nail care handout for future routine debridement Follow up: prn or sooner with acute issues Patient's medical history was reviewed today Body mass index is 58.82 kg/(m^2). Weight management plan: Patient was referred to their PCP to discuss a diet and exercise plan. Angel Godinez DPM FACFAS FACFAOM Podiatric Foot & Ankle Surgeon [facility] [phone] documented in this encounter Plan of Treatment Upcoming Encounters Date Type Specialty Care Team Description 11/15/2022 Virtual Visit Pharm Haylie Gonzalez, [facility] [address] [facility] [place] [address] (Wo rk) 11/15/2022 Virtual Visit [place] [address] [place] [address] [place] [id number] (Wo rk) 03/03/2023 Virtual Visit Neurology Erlinda Barber MD [address] [facility] [address] [place], [place] [address] (Wo rk) documented as of this encounter Procedures Procedure Name Priority Date/Time Associated Diagnosis Comme nts HC DEBRIDEMENT OF NAILS, Routine 05/10/2018 7:14 AM Onyc homycosis 6 OR MORE CDT Alopecia with ten nail dystrophy documented in this encounter Visit Diagnoses Diagnosis Onychomycosis - Primary Dermatophytosis of nail Alopecia with ten nail dystrophy documented in this encounter Care Teams Data Entry Operator Relationship Specialty Start Date End Date Lucero Stevenson PCP - General Pediatrics 10/11/11 04/22/19 MD Annetta Catalino Carballo, PCP - Assigned PCP 03/18/18 06/16/18 WAREHOUSE TRAINER MORTICIAN INVESTIGATOR [address] [place] [address] Chastity Montero MD Dermatology 09/23/14 [address] [facility] [address] [place], [place] [address] Johnnie Alcocer MD Surgeon General Surgery 03/23/17 [address] [facility] [address] [place] [address] Janie Petersen, RN Clinic Wind Up Operator Primary Care - CC 05/03/18 08/09/18 documented as of this encounter
--- OUTSIDE RECORDS SUMMARY | 2022-06-15 13:12 | XMS_ITS | Encounter Summary ---
:1945 Author Organization [facility] Address [address] [place] [address] Care Team Providers Name Role Phone Lucero Stevenson MD Primary Care Provider [phone] Chastity Montero MD Unavailable [phone] Johnnie Alcocer MD Unavailable Catalino Carballo APRN [facility] Unavailable [phone] Reason for Referral Specialty Diagnoses / Procedures Referred By Contact Refer red To Contact Lucero Stevenson MD [address] [address] Referral ID Status Reason Start Date Expiration Date Visits Requ ested Visits Authorized Scheduling Instructions ANTICOAGULATION CLINIC COLLABORATIVE TX ACTICE AGREEMENT The following represents a collaborative practice agreement among the physicians of the Clinic and staff of the Anticoagulat ion Clinic Service ([facility]) Physicians shall: 1. Refer patients requiring anticoagulat ion to a specialty service staffed by personnel of Pharmacy Services and super vised by Clinic physicians. 2. Respond to questions and referrals fr om pharmacy staff regarding delinquent or difficult patients. 3. Inform the [facility] staff when a new patie nt [...] when sergio cated. Reason for Visit Reason Onset Date Comments Referral 05/01/2018 INR Encounter Details Date Type Department Care Team Description 05/01/2018 Telephone [facility] Stefanie Stevenson Referral (INR) [place] Littlejohn [place] [address] [place] [address] [place] [address] [phone] Social History Tobacco Use Types Packs/Day Years [...] Telephone Encounter - Lucero Stevenson MD - 05/01/2018 2:23 PM CDT Order placed. Lucero Stevenson MD Telephone Encounter - Krystyna Sharp RN - 05/01/2018 8:26 AM CDT Reimbursement rules require all INR Clinic patients to have a yearly renewal of an INR Clinic Referral order. Referral must be signed by the PCP for each patient.? Referral is pended. Please complete and sign. Notes from ED on 10/28/17: Charlette Brush is a 72 year old female who presents to the emergency department today for evaluationof wound check. The patient reportedly fell while at home, lying on the floor for 3 days starting on10/15/17. She was admitted to [facility] on 10/18/17 for rhabdomyolysis and had some skin breakdown at that time. The patient was discharged from from [facility] on October 25, 2017 for left lower extremity cellulitis, rhabdomyolysis, and multiple skin ulcerations to a TCU. She finished her round of Clindamycin on October 27, 2017. Since discharge from [facility], she has been in transitional care at [facility]. Since the fall, her wounds have progressed and have been frequently exposed to patient's stool. The nursing staff there noticed explosive diarrhea and unstable ulcerin the left thigh/buttock region with new green discharge and sent her here to the emergency department. In addition to the thigh wound, she also has other wounds as noted in the physical exam below. Steve fregoso denies any fevers or increasing pain. She denies any abdominal pain or vomiting. She reports feeling generally weak which is significantly worse today. Krystyna.M, philosophy professor Nurse documented in this encounter Plan of Treatment Upcoming Encounters Date Type Specialty Care Team Description 11/15/2022 Virtual Visit Pharm Haylie Gonzalez, [facility] [address] [facility] [address] [address] [place], [place] [id number] (Wo rk) 11/15/2022 Virtual Visit IM/Peds Yane Barraza MD [address] [facility] [address] [place] [id number] (Wo rk) 03/03/2023 Virtual Visit Neurology Erlinda Barber MD 420 [facility] 295 [place], [place] [address] (Wo rk) Scheduled Referrals Name Type Priority Associated Diagnoses Order S chedule INR CLINIC REFERRAL Referral Routine Pulmonary embolism an d Ordered: 05/01/2018 infarction (H) long-term current use of anticoagulant therapy documented as of this encounter Visit Diagnoses Diagnosis Pulmonary embolism and infarction (H) - Primary 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 documented in this encounter Care Teams Biofuels Production Manager Relationship Specialty Start Date End Date Lucero Stevenson MD PCP - General Pediatrics 10/11/11 04/22/19 Catalino Carballo, WELDING PROCESS ENGINEER PCP - Assigned PCP 03/18/18 06/16/18 FLOOR COVERER [address] [place] [address] Chastity Montero MD MD Dermatology 09/23/14 420 [facility] 98 [place], [place] [address] Johnnie Alcocer MD Surgeon General Surgery 03/23/[address] [place], [place] [address] documented as of this encounter
--- OUTSIDE RECORDS SUMMARY | 2022-06-15 13:13 | XMS_ITS | Encounter Summary ---
:1945 Author Organization [facility] Address [address] [place] [address] Care Team Providers Name Role Phone Lucero Stevenson MD Primary Care Provider [phone] Chastity Montero MD Unavailable [phone] Johnnie Alcocer MD Unavailable Janie Petersen RN Unavailable Unavailable Janie Petersen RN Unavailable Unavailable Lucero Stevenson MD Unavailable [phone] Catalino Carballo PODIATRY PROFESSOR EXHAUST EQUIPMENT OPERATOR Unavailable [phone] Lucero Stevenson MD Unavailable [phone] Danni Marcus RN Unavailable Unavailable Kana Doshi PODIATRIC SURGEON Unavailable Mtm, Ea Complex Unavailable Unavailable Svetlana Osman [facility] Unavailable [phone] Doris Lai MD Primary Care Provider Haylie Cheung [facility] Unavailable [phone] Galdino Valdez MD Unavailable Galdino Valdez MD Primary Care Provider Jaiden Holcomb MD Primary Care Provider [phone] Kendall Joseph MD Unavailable Erlinda Barber MD Unavailable Jaiden Holcomb MD Unavailable [phone] Lucero Stevenson MD Primary Care Provider [phone] Doris Lai MD Primary Care Provider Encounter Details Date Type Department Care Team Description 12/23/2017 Records - [facility] Chris Orlando MD [address] [id number] Social History Tobacco Use Types Packs/Day Years [...] Haylie Cheung, [facility] [address] [facility] [place] [address] (Lena max) 11/15/2022 Virtual Visit MICHAEL/Yane Mathias MD [address] [facility] [place] [address] (Lena max) 03/03/2023 Virtual Visit Neurology Erlinda Barber MD [address] [address] (Wo rk) documented as of this encounter Procedures Procedure Name Priority Date/Time Associated Comments Diagnosis URINE CULTURE - Routine 12/23/2017 8:00 AM Result s for this HISTORICAL CDT procedure are i n the results section. ROUTINE UA WITH Routine 12/23/2017 8:00 AM Result s for this MICROSCOPIC CDT procedure are i n the results section. documented in this encounter Results Urine Culture - Historical (12/23/2017 8:00 AM CDT) [facility] Method Time Signature Culture Mixture of 12/24/2017 [facility] urogenital 9:21 AM CDT [facility] Specimen Anatomical Collection Method Collection Time Receive d Time (Source) Location / / Volume Laterality Urine specimen Non-blood 12/23/2017 8:00 AM 018 (specimen) Collection / CDT 11:03 AM CDT Unknown Manny Waters MD LAB - MICRO GENERAL ORDERABL ES Performing Organization Address [facility]/State/[facility] Code Phon [place] [address] [address] [facility] (ABNORMAL) UA with Microscopic (12/23/2017 8:00 AM CDT) [facility] Method Time Signature Color Urine Yellow Colorless, 12/23/2017 [facility] Yellow, 11:31 AM [place] Straw, Surya [facility] Yellow Appearance Urine Cloudy (A) Clear 12/23/2017 [facility] 11:31 AM [facility] CD[facility] Glucose Urine Negative Negative 12/23/2017 [facility] 11:31 AM [place] Bilirubin Urine Negative Negative 12/23/2017 [facility] 11:31 AM [place] CDT [facility] Ketones Urine Negative Negative 12/23/2017 [facility] 11:31 AM [facility] Specific [place] 1.018 1.001 - 12/23/2017 [facility] Urine 1.030 11:31 AM [facility] Blood Urine Small (A) Negative 12/23/2017 [facility] 11:31 AM [facility] pH Urine 6.0 4.5 - 8.0 12/23/2017 [facility] 11:31 AM [facility] Protein Albumin Trace (A) Negative 12/23/2017 [facility] Urine mg/dL 11:31 AM [facility] Urobilinogen 2.0 E.U./dL <2.0 12/23/2017 [facility] Urine E.U./dL, 11:31 AM [facility] 2.0 E.U./dL VLADIMIR [facility] Support AgencyS [facility]OR[facility] Nitrite Urine Negative Negative 12/23/2017 [facility] 11:31 AM [facility] Leukocyte Large (A) Negative 12/23/2017 [facility] Esterase Urine 11:31 AM [facility] Bacteria Urine Many (A) None Seen 12/23/2017 [facility] hpf 11:31 AM [facility] RBC Urine 3-5 (A) None Seen, 12/23/2017 [facility] 0-2 hpf 11:31 AM [facility] WBC Urine >100 (A) None Seen, 12/23/2017 [facility] 0-5 hpf 11:31 AM [facility] Squamous 0-5 None Seen, 12/23/2017 [facility] Epithelials 0-5 lpf 11:31 AM [place] Urine [facility] WBC Clumps Urine Present (A) None Seen 12/23/2017 [facility] 11:31 AM [facility] Transitional 5-10 (A) None Seen 12/23/2017 [facility] Epithelials lpf 11:31 AM [place] Urine [facility] Mucus Urine Moderate None Seen 12/23/2017 [facility] (A) lpf 11:31 AM [facility] Hyaline Casts 0-5 0-5, None 12/23/2017 [facility] Urine Seen lpf 11:31 AM [facility] CDT [facility] Specimen Anatomical Collection Method Collection Time Receive d Time (Source) Location / / Volume Laterality Urine specimen Non-blood 12/23/2017 8:00 AM 018 (specimen) Collection / CDT 11:03 AM CDT Unknown Manny Waters MD LAB - URINE ORDERABLES Performing Organization Address City/State/ZIP Code Phon [place] [address] [address] [facility] documented in this encounter Visit Diagnoses Not on filedocumented in this encounter Care Teams Accountant Budget Relationship Specialty Start Date End Date Lucero Stevenson, PCP - General Pediatrics 10/11/11 Lucero Stevenson, PCP - Assigned PCP 06/17/18 09/18/18 MD TOÑO LOPEZ [address] [place] [phone] Catalino Carballo, PCP - Assigned PCP 03/18/18 06/16/18 PODIATRY PROFESSOR EXHAUST EQUIPMENT OPERATOR [address] [place] [address] Doris Lai MD PCP - General Internal Medicine 04/23/19 05/14/[address] [place] [address] [place] [phone] Galdino Valdez MD PCP - General Family Practice 11/29/19 02/12/20 [address] [place], [place] [phone] Jaiden Holcomb PCP - General Internal Medicine 02/13/2010/03 MD Jayesh [address] [facility] [place] [phone] Lucero Stevenson, PCP - General 05/15/19 1 07/23/18 MD TOÑO LOPEZ [address] [place] [phone] Doris Lai MD PCP - General 05/24/19 11/28/[address] [place] [address] Chastity Montero MD Dermatology 09/23/[address] [place] [address] 98 [place], [place] [phone] Johnnie Alcocer MD Surgeon General Surgery 03/23/17 [address] [facility] 300 [place], [place] [phone] Janie Petersen, RN Clinic Care Primary Care - CC 11/17/17 01/15/18 Coordinator Janie Petersen, RN Clinic Care Primary Care - CC 05/03/18 9 Coordinator Lucero Stevenson, Assigned PCP 06/17/18 MD TOÑO LOPEZ [address] [place] [phone] Danni Marcus, CHANDLER Personal Advocate & 01/09/1901/17 Liaison (PAL) Kana Doshi PODIATRIC SURGEON Clinic Care Primary Care - CC 03/19/19 05/07/19 Coordinator Fernando, Ea Complex 04/23/19 Svetlana Osman, Pharmacist Pharmacotherapy 04/23/19 [facility] [address] [place] [address] Haylie Cheung, Pharmacist Pharmacist 09/11/19 [facility] [address] [place], [place] [phone] Galdino Valdez MD Assigned PCP 11/10/19 05/23/20 [address] [facility] [place] [place] [phone] Opal, Assigned Sleep 05/08/20 03/27/21 Kendall Meehan MD Provider [address] [place] [address] Erlinda Barber MD Assigned Neuroscience 05/08/20 01/26/21 [address] [facility] [address] [place] [address] Jaiden Holcomb Assigned PCP 05/24/20 MD Jayesh [address] [place] [address] documented as of this encounter
--- OUTSIDE RECORDS SUMMARY | 2022-06-15 13:13 | XMS_ITS | Encounter Summary ---
:1945 Author Organization [facility] Address [address] [place] [address] Care Team Providers Name Role Phone Lucero Stevenson MD Primary Care Provider [phone] Chastity Montero MD Unavailable [phone] Johnnie Alcocer MD Unavailable Janie Petersen RN Unavailable Unavailable Janie Petersen RN Unavailable Unavailable Lucero Stevenson MD Unavailable [phone] Catalino Carballo PAPER MILL MANAGER POLY PACKER AND HEAT SEALER Unavailable [phone] Lucero Stevenson MD Unavailable [phone] Danni Marcus RN Unavailable Unavailable Kana Doshi CORPORATE SECURITIES RESEARCH ANALYST Unavailable Mtm, Ea Complex Unavailable Unavailable Svetlana Osman [facility] Unavailable [phone] Doris Lai MD Primary Care Provider Haylie Cheung [facility] Unavailable [phone] Galdino Valdez MD Unavailable Galdino Valdez MD Primary Care Provider Jaiden Holcomb MD Primary Care Provider [phone] Kendall Joseph MD Unavailable Erlinda Barber MD Unavailable Jaiden oHlcomb MD Unavailable [phone] Lucero Stevenson MD Primary Care Provider [phone] Doris Lai MD Primary Care Provider Reason for Visit Reason Comments H & P Encounter Details Date Type Department Care Team Description 11/21/2017 Office Visit - M [facility] Manny Waters MD Uri nary retention; [facility] Provider, Historical Necrotizing soft tissue infection (H); [address] Injury of le ft sciatic nerve; [address] Incontinence of feces, unspe cified fecal incontinence type; [place], [place] Obstructive s leep apnea syndrome; [id number] Morbid obesity (H); [phone] Lymphedema; Hx pulmonary em bolism; Hypertension; Mass of leg, le ft; Mass of foot, l eft Social History Tobacco Use Types Packs/Day Years [...] - Inhaled Oxygen Concentration - - Weight 186.1 kg (410 lb 3.2 oz) 11/21/2017 12:27 PM CDT Height - - Body Mass Index 66.21 10/26/2017 11:26 AM CDT documented in this encounter Progress Notes Manny Watesr MD - 11/21/2017 12:27 PM CDT Code Status: FULL CODE Visit Type: H & P Facility: [facility] [[id number]] Facility Type: SNF (Residential Facility, TCU) History of Present Illness: Hospital Admission Date: 10/28/17 Hospital Discharge Date: 11/17/17 Facility Admission Date: 11/17/17 Charlette Brush is a 72 y.o. female with past medical history of morbid obesity, hypertension, obstructive sleep apnea, lymphedema, and pulmonary embolus in 2001 now on chronic anticoagulation admitted to [facility] facility after hospitalization for necrotizing fasciitis and sciatic nerve injury. Patient previously lived alone in a 2 bedroom [facility] and fell and became stuck on October 18, 2017. She was down for 3 days for she was able to make her way to a phone to call for help. [facility] and was [facility] to [facility] facility on 10/25/2017. She is sent back to the hospital with concerning worsening of her sacral and posterior thigh wounds and transferred to [facility] on 10/28/2017 with concern for necrotizing soft tissue infection and sepsis. Patient was started onempiric antibiotics and taken to the operating room for irrigation and debridement on night of admission. Tissue cultures grew Klebsiella, actinomyces, and Bacteroides. She had transection of the sciatic nerve during surgery which was repaired the following day by neurosurgery. Despite surgical repairshe continues to have absent plantar dorsiflexion of the left foot. Patient completed her antibiotics regimen of ciprofloxacin, doxycycline, and Flagyl on 11/13/2017. She was discharged on 11/17/2017 and a [facility]. Currently she states that she is overall doing okay. She endorses some tenderness over the wound sites with dressing changes. She has some shortness of breath when exerting herself such as helping withturns. She uses a CPAP at night. Since her fall, she is experienced intermittent urinary retention requiring Scanlon catheterization she also does not have control of her bowels. She is incontinent of stool. While having her lower extremities wrapped for lymphedema physical therapy noted left calf mass and nodule on the dorsal aspect of the left foot. Patient has decrease sensation in the left leg and these are not painful. Past Medical History: Diagnosis Date ??? Acute blood loss anemia ??? Cellulitis left lower extremity and multiple skin wounds ??? Fall 10/18/2017 ??? Hx pulmonary embolism ??? Hypertension ??? Infected wound thigh/perineum, sacral/coccygeal ??? Injury of left sciatic nerve ??? Lymphedema ??? Morbid obesity ??? Necrotizing fasciitis 10/28/2017 ??? Necrotizing soft tissue infection debridement 10/18/17 ??? Sepsis ??? Sleep apnea CPAP at night ??? Weakness left lower limb Past Surgical History: Procedure Laterality Date ??? cholectomy ??? NERVE REPAIR left ??? sciatic nerve transection ??? TONSILLECTOMY ??? wound irrigation and debridement posterior upper thigh ??? wound irrigation and debridement left buttocks Family History Problem Relation Age of Onset ??? Hypertension Mother ??? Transient ischemic attack Mother ??? Thyroid disease Mother Social History Social History ??? Marital status: Single Spouse name: N/A ??? Number of children: N/A ??? Years of education: N/A Occupational History ??? Not on file. Social History Main Topics ??? Smoking status: Never Smoker ??? Smokeless tobacco: Never Used ??? Alcohol use Not on file ??? Drug use: Not on file ??? Sexual activity: Not on file Other Topics Concern ??? Not on file Social History Narrative Additional Geriatric Review: Patient lives alone in a town home. She is . Her daughter Tamar is her main support and lives in [place]. She also has a sister who lives in [place]. Sheuses hearing aids and is nearsighted. Her teeth are in fair repair. 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 Current Outpatient Prescriptions Medication Sig Dispense Refill ??? acetaminophen (TYLENOL) 325 MG tablet Take 975 mg by mouth every 8 (eight) hours as needed for pain. ??? atenolol (TENORMIN) 25 MG tablet Take 25 mg by mouth 2 (two) times a day. ??? calcium polycarbophil (FIBERCON) 625 mg tablet Take 1,250 mg by mouth 3 (three) times a day. ??? cetirizine (ZYRTEC) 10 MG tablet Take 10 mg by mouth 2 (two) times a day. ??? enoxaparin (LOVENOX) 150 mg/mL injection Inject under the skin every 12 (twelve) hours. ??? LACTOBACILLUS REUTERI ORAL Take 1 capsule by mouth 2 (two) times a day. ??? losartan (COZAAR) 100 MG tablet Take 100 mg by mouth daily. ??? qkpdbucgjxvb-xpalqqva-vqwmzb (CEROVITE SENIOR) tablet Take 1 tablet by mouth at bedtime. ??? pantoprazole (PROTONIX) 40 MG tablet Take 40 mg by mouth daily. ??? psyllium (METAMUCIL) 3.4 gram packet Take 1 packet by mouth 3 (three) times a day. ??? psyllium husk, with sugar, (METAMUCIL, WITH SUGAR,) 3.4 gram PwPk Take 1 packet by mouth daily. ??? sodium hypochlorite (DAKIN'S, HALF-STRENGTH,) external solution Irrigate with as directed daily. ??? sorbitol 70 % solution Take 15-30 mL by mouth daily as needed. ??? warfarin (COUMADIN) 10 MG tablet Take 10 mg by mouth daily. No current facility-administered medications for this visit. Allergies Allergen Reactions ??? Cephalexin ??? Lanolin ??? Lisinopril ??? Mupirocin ??? Neomycin ??? Penicillins There is no immunization history on file for this patient. Review of Systems Constitutional: Negative for chills and fever. HENT: Negative. Respiratory: Negative for cough and shortness of breath. Cardiovascular: Negative for chest pain. Gastrointestinal: Negative for abdominal pain, nausea and vomiting. Fecal incontinence Genitourinary: Positive for difficulty urinating. Musculoskeletal: Tenderness with dressing changes over her wound sites. Mass of posterior left calf Nodule of left dorsal foot Skin: Positive for wound. Deep left posterior thigh wound Neurological: Positive for weakness and numbness. All other systems reviewed and are negative. Physical Exam Constitutional: She is oriented to person, place, and time. She appears well- nourished. No distress. HENT: Head: Normocephalic and atraumatic. Eyes: Conjunctivae are normal. Pupils are equal, round, and reactive to light. Neck: Neck supple. No tracheal deviation present. Cardiovascular: Normal rate, regular rhythm and normal heart sounds. Pulmonary/Chest: Effort normal and breath sounds normal. She has no wheezes. She has no rales. Abdominal: Soft. There is no tenderness. There is no rebound and no guarding. Obese Musculoskeletal: She exhibits edema. Large nontender mass in the upper left calf/popliteal region Firm mobile nodule on the dorsum of the left foot. Nontender. Lymphadenopathy: She has no cervical adenopathy. Neurological: She is alert and oriented to person, place, and time. No cranial nerve deficit. Absent plantar or dorsiflexion of the left foot Skin: Deep left posterior thigh ulcer, s/p debridement Vitals reviewed. Labs: All labs reviewed in the [facility] record. Assessment: 1. Urinary retention 2. Necrotizing soft tissue infection 3. Injury of left sciatic nerve 4. Incontinence of feces, unspecified fecal incontinence type 5. Obstructive sleep apnea syndrome 6. Morbid obesity 7. Lymphedema 8. Hx pulmonary embolism 9. Hypertension 10. Mass of leg, left 11. Mass of foot, left Plan: This 72-year-old female who fell and was down for 3 days and then developed necrotizing fasciitis of her posterior left thigh and buttocks region status post debridement and sciatic nerve transection and repair now admitted to penitentiary facility. 1. Consult Dr. Quinones for wound care 2. Patient with Scanlon catheter in place. Previously she had had normal bladder function. Will attempt bladder training with physical therapy. 3. Patient with mass in the left calf/popliteal region and nodule on the dorsum of the left foot. Wewill obtain ultrasound of these. Differential includes Lopez's cyst, hematomas, ganglion cyst on thedorsum of the left foot, less likely but possible neoplastic process. 4. Recheck CBC, CRP, ESR 5. Dressing change with each incontinent stool or at least once daily 6. INR is subtherapeutic today. We will increase warfarin to 12 daily and recheck INR on . Patient apparently was started on long-term anticoagulation after 1 episode of a provoked pulmonary embolus in 2001. Given her immobility and obesity we will continue anticoagulation at this time however we will need to readdress anticoagulation status in the future. Total 45 minutes of which 50% was spent in counseling and coordination of care of the above plan. Chart was reviewed, patient seen and discussed with third-year family practice resident Dr. Palomo Gibbs and I agree with his assessment and plan. Manny Waters MD Electronically signed by: Manny Gibbs DO documented in this encounter Plan of Treatment Upcoming Encounters Date Type Specialty Care Team Description 11/15/2022 Virtual Visit Pharm Haylie Gonzalez, [facility] [address] [place] [address] (Wo rk) 11/15/2022 Virtual Visit IM/Peds Yane Barraza MD [address] [address] (Wo rk) 03/03/2023 Virtual Visit Neurology Erlinda Barber MD [address] [facility] [address] [place] [address] (Wo rk) documented as of this encounter Visit Diagnoses Diagnosis Urinary retention Retention of urine, unspecified Necrotizing soft tissue infection Injury of left sciatic nerve Incontinence of feces, unspecified fecal incontinence type Obstructive sleep apnea syndrome Obstructive sleep apnea (adult) (pediatr ic) Morbid obesity (H) Morbid obesity Lymphedema Other lymphedema Hx pulmonary embolism Personal history of pulmonary embolism Hypertension Unspecified essential hypertension Mass of leg, left Mass of foot, left documented in this encounter Care Teams Building Construction Professor Relationship Specialty Start Date End Date Lucero Stevenson, PCP - General Pediatrics 10/11/11 Lucero Stevenson, PCP - Assigned PCP 06/17/18 09/18/18 MD TOÑO LOPEZ [address] [place], [place] [phone] Catalino Carballo, PCP - Assigned PCP 03/18/18 06/16/18 PAPER MILL MANAGER [facility] [address] [place] [address] Doris Lai MD PCP - General Internal Medicine 04/23/19 05/14/19 [address] [facility] [place] [id number] Galdino Valdez MD PCP - General Family Practice 11/29/19 02/12/20 [address] [place], [place] [phone] Jaiden Holcomb PCP - General Internal Medicine 02/13/2010/03 MD Jaeysh [address] [facility] [place] [address] Lucero Stevenson, PCP - General 05/15/19 1 07/23/18 MD TOÑO LOPEZ [address] [place] [phone] Doris Lai MD PCP - General 05/24/19 11/28/19 [address] [facility] [place] [address] Chastity Montero MD Dermatology 09/23/14 [address] [facility] [address] [place], [place] [phone] Johnnie Alcocer MD Surgeon General Surgery 03/23/17 [address] [facility] [address] [place], [place] [address] Janie Petersen RN Clinic Care Primary Care - CC 11/17/17 01/15/18 Coordinator Janie Petersen RN Clinic Care Primary Care - CC 05/03/18 9 Coordinator Lucero Stevenson, [facility] PCP 06/17/18 MD TOÑO LOPEZ [address] [place], [place] [phone] Danni Marcus, RN Personal Advocate & 01/09/1901/17 Liaison (PAL) Kana Doshi [facility] Clinic Care Primary Care - CC 03/19/19 05/07/19 Coordinator Kyle King Complex 04/23/19 Svetlana Osman, Pharmacist Pharmacotherapy 04/23/19 [facility] [address] [place] [address] Haylie Cheung, Pharmacist Pharmacist 09/11/19 [facility] [address] [place] [address] Galdino Valdez MD Assigned PCP 11/10/19 05/23/20 [address] [place], [place] [phone] Opal, Assigned Sleep 05/08/20 03/27/21 Kendall Meehan MD Provider [address] [place] [address] Erlinda Barber MD Assigned Neuroscience 05/08/20 01/26/21 [address] [facility] [address] [place] [address] Jaiden Holcomb Assigned PCP 05/24/20 MD Jayesh [address] [place] [address] documented as of this encounter
--- OUTSIDE RECORDS SUMMARY | 2022-06-15 13:13 | XMS_ITS | Encounter Summary ---
:1945 Author Organization [facility] Address [address] [place] [address] Care Team Providers Name Role Phone Lucero Stevenson MD Primary Care Provider Chastity Montero MD Unavailable [phone] Johnnie Alcocer MD Unavailable Janie Petersen RN Unavailable Unavailable Janie Petersen RN Unavailable Unavailable Lucero Stevenson MD Unavailable [phone] Catalino Carballo SUPPLY CHAIN DIRECTOR CALL WORKER Unavailable [phone] Lucero Stevenson MD Unavailable [phone] Danni Marcus RN Unavailable Unavailable Kana Doshi SHEET CUTTING OPERATOR Unavailable Mtm, Ea Complex Unavailable Unavailable Svetlana Osman [facility] Unavailable Doris Lai MD Primary Care Provider Haylie Cheung [facility] Unavailable [phone] Galdino Valdez MD Unavailable Galdino Valdez MD Primary Care Provider Jaiden Holcomb MD Primary Care Provider [phone] Kendall Joseph MD Unavailable Erlinda Barber MD Unavailable Jaiden Holcomb MD Unavailable [phone] Lucero Stevenson MD Primary Care Provider [phone] Doris Lai MD Primary Care Provider Reason for Visit Reason Comments Follow Up Necrotizing Infection of sof t tissue, physical deconditioning Encounter Details Date Type Department Care Team Description 12/14/2017 Office Visit - [facility] Shaneka, Noemítiz ing soft tissue infection (H); [facility] Svetlana Littlejohn, Physical deconditioning [address] [facility] [address] [facility] [id number] [place] [address] [place] [address] Social History Tobacco Use Types Packs/Day Years [...] - Inhaled Oxygen Concentration - - Weight 176.9 kg (390 lb) 12/14/2017 6:43 PM CDT Height - - Body Mass Index 62.95 10/26/2017 11:26 AM CDT documented in this encounter Progress Notes Svetlana Munroe, MIGEL ALBERTO - 12/14/2017 4:16 PM CDT [facility] Facility: [facility] [[id number]] Code Status: POLST AVAILABLE CHIEF COMPLAINT/REASON FOR VISIT: Chief Complaint Patient presents with ??? Review Of Multiple Medical Conditions Necrotizing Infection of soft tissue, physical deconditioning HISTORY: HPI: Charlette is a 72 y.o. female Hospital Admission Date: 10/28/17 Hospital Discharge Date: 11/17/17 Facility Admission Date: 11/17/17 Charlette Brush is a 72 y.o. female with past medical history of morbid obesity, hypertension, obstructive sleep apnea, lymphedema, and pulmonary embolus in 2001 now on chronic anticoagulation admitted to nursing home facility after hospitalization for necrotizing fasciitis and sciatic nerve injury. [facility] and [facility] and became stuck on October 18, 2017. She was down for 3 days for she was able to make her way to a phone to call for help. [facility] and was discharged to nursing home facility on 10/25/2017. She is sent back to the hospital with concerning worsening of her sacral and posterior thigh wounds and transferred to [facility] on 10/28/2017 with concern for necrotizing soft [...] discharged on 11/17/2017 and a [facility]. Since her fall, she is experienced intermittent urinary retention requiring Scanlon catheterization she also does not have control of her bowels. She is incontinent of stool. While having her lower extremities wrapped for lymphedema physical therapynoted left calf mass and nodule on the dorsal aspect of the left foot. Patient has decrease sensation in the left leg and these are not painful. Evaluation of these masses were undertaken and revealed one was a cyst that was likely benign and the other area was a varicose vein. Today she is being evaluated for a routine TCU follow-up. She has been doing overall pretty well. She has continued to lose weight and is quite happy about that. She has been working with PT/OT and feels that those services are going extremely well. She has a red area on her left foot that PT is concerned about, it is wrapped and suspended to help relieve pressure. Riaz has also been consulted tofind or create some type of brace that would prevent pressure from being applied to her left lateralfoot. She is otherwise doing good and does not have any concerns. She denies any other concerns including fevers/chills, cough or cold symptoms, headaches, vision changes, chest pain/pressure, difficulty breathing, SOB, abdominal pain, nausea, vomiting, diarrhea, dysuria, increasing weakness, increasing pain. Past Medical History: Diagnosis Date ??? Acute [...] at night ??? Weakness left lower limb Family History Problem Relation Age of Onset [...] ??? Not on file Social History Narrative REVIEW OF SYSTEM: Pertinent items are noted in HPI. PHYSICAL EXAM: BP 108/63 Pulse 90 Temp 96.9 ??F (36.1 ??C) Resp 20 Wt (!) 390 lb (176.9 kg) SpO2 97% Morbid obesity significantly limits examination. General appearance: alert, appears stated age and cooperative Head: Normocephalic, without obvious abnormality, atraumatic Lungs: clear to auscultation bilaterally Heart: regular rate and rhythm, S1, S2 normal, no murmur, click, rub or gallop Abdomen: soft, non-tender; bowel sounds normal; no masses, no organomegaly Extremities: extremities normal, atraumatic, no cyanosis or edema Skin: exposed skin is PWDI, large tunneling wound to left posterior thigh-packed and bandaged, redness to left lateral foot Neurologic: Grossly normal LABS: None today. ASSESSMENT: ICD-10-CM 1. 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 -Continue wound care per plan. -Continue to wrap left leg/foot to relieve pressure. -Consult with Tilleges to create ortho device for left leg. -Encouraged good nutrition and movement habits. -Discussed care plan and expected course of stay. -Continue to follow-up per routine schedule or sooner if needed. Otherwise continue current care plan for all other chronic medical conditions, as they are stable. Encouraged patient to engage in healthy lifestyle behaviors such as engaging in social activities, exercising (PT/OT), eating well, and following care plan. Follow up for routine check-up, or sooner if needed. Will continue to monitor patient and work with nursing staff collaboratively to work toward positive patient outcomes. Greater than 25 minutes spent with patient with at least 55% of this time spent on review of previous records, counseling, education, and discussion of the above care plan with nursing staff, and patient. Electronically signed by: Svetlana Munroe CNP documented in this encounter Plan of Treatment Upcoming Encounters Date Type Specialty Care Team Description 11/15/2022 Virtual Visit Haylie Wakefield, [facility] [address] [place] [address] (Wo rk) 11/15/2022 Virtual [place] [address] [place] [address] [place] [phone] (Wo rk) 03/03/2023 Virtual Visit Neurology Erlinda Barber MD [address] [facility] [address] [place], [place] [address] (Wo rk) documented as of this encounter Visit Diagnoses Diagnosis Necrotizing soft tissue infection Physical deconditioning Debility, unspecified documented in this encounter Care Teams Image Assembler Relationship Specialty Start Date End Date Lucero Stevenson, PCP - General Pediatrics 10/11/11 Lucero Stevenson, PCP - Assigned PCP 06/17/18 09/18/18 MD TOÑO LOPEZ [address] [place] [phone] Catalino Carballo, PCP - Assigned PCP 03/18/18 06/16/18 SUPPLY CHAIN DIRECTOR CALL WORKER [address] [place] [address] Doris Lai MD PCP - General Internal Medicine 04/23/19 05/14/[address] [place] [address] [place] [id number] Galdino Valdez MD PCP - General Family Practice 11/29/19 02/12/20 [address] [place], [place] [phone] Jaiden Holcomb PCP - General Internal Medicine 02/13/2010/03 MD Jayesh [address] [facility] [place] [id number] Lucero Stevenson, PCP - General 05/15/19 1 07/23/18 MD TOÑO LOPEZ [address] [place], [place] [phone] Doris Lai MD PCP - General 05/24/19 11/28/[address] [place] [address] Chastity Montero MD Dermatology 09/23/14 [address] [facility] [address] [place] [address] Johnnie Alcocer MD Surgeon General Surgery 03/23/17 [address] [facility] [address] [place] [address] Janie Petersen, CHANDLER Clinic Care Primary Care - CC 11/17/17 01/15/18 Coordinator Janie Petersen, CHANDLER Clinic Care Primary Care - CC 05/03/18 9 Coordinator Lucero Stevenson, Assigned PCP 06/17/18 [facility] [address] [place] [address] Danni Marcus, CHANDLER Personal Advocate & 01/09/1901/17 Liaison (PAL) Kana Doshi SHEET CUTTING OPERATOR Clinic Care Primary Care - CC 03/19/19 05/07/19 Coordinator Fernando, Ea Complex 04/23/19 Svetlana Osman, Pharmacist Pharmacotherapy 04/23/19 [place] [address] [place] [address] Haylie Cheung, Pharmacist Pharmacist 09/11/19 [facility] [address] [place] [address] Galdino Valdez MD Assigned PCP 11/10/19 05/23/20 [address] [place] [address] Opal, Assigned Sleep 05/08/20 03/27/21 Kendall Meehan MD Provider [address] [place] [address] Erlinda Barber MD Assigned Neuroscience 05/08/20 01/26/21 [address] [facility] [address] [place] [address] Jaiden Holcomb Assigned PCP 05/24/20 MD Jayesh [address] [place] [address] documented as of this encounter
--- OUTSIDE RECORDS SUMMARY | 2022-06-15 13:13 | XMS_ITS | Encounter Summary ---
:1945 Author Organization North Address [address] [place] [address] Care Team Providers Name Role Phone Lucero Stevenson MD Primary Care Provider [phone] Chastity Montero MD Unavailable [phone] Johnnie Alcocer MD Unavailable Janie Petersen RN Unavailable Unavailable Janie Petersen RN Unavailable Unavailable Lucero Stevenson MD Unavailable [phone] Catalino Carballo JUDGE'S CLERK STATEMENT REQUEST CLERK Unavailable [phone] Lucero Stevenson MD Unavailable [phone] Danni Marcus RN Unavailable Unavailable Kana Doshi POLYMERIZATION HELPER Unavailable Mtm, Ea Complex Unavailable Unavailable Svetlana Osman [facility] Unavailable [phone] Doris Lai MD Primary Care Provider Haylie Cheung [facility] Unavailable [phone] Galdino Valdez MD Unavailable Galdino Valdez MD Primary Care Provider Jaiden Holcomb MD Primary Care Provider [phone] Kendall Joseph MD Unavailable Erlinda Barber MD Unavailable Jaiden Holcomb MD Unavailable Lucero Stevenson MD Primary Care Provider [phone] Doris Lai MD Primary Care Provider Encounter Details Date Type Department Care Team Description 11/27/2017 Records - [facility] Chris Orlando MD [address] [phone] Social History Tobacco Use Types Packs/Day Years [...] D Haylie Cheung, [facility] [address] [facility] [place] [address] (Lena max) 11/15/2022 Virtual Visit MICHAEL/Yane Mathias MD [address] [facility] [place] [address] (Lena max) 03/03/2023 Virtual Visit Neurology Erlinda Barber MD [address] [address] (Wo rk) documented as of this encounter Procedures Procedure Name Priority Date/Time Associated Diagnosis Comme nts PREALBUMIN Routine 11/27/2017 5:37 AM Results f or this CDT procedure are i n the results section. CBC WITH PLATELETS Routine 11/27/2017 5:37 AM Res ults for this CDT procedure are i n the results section. documented in this encounter Results (ABNORMAL) CBC with platelets (11/27/2017 5:37 AM CDT) [facility] Method Time Signature WBC 7.2 4.0 - 11.0 11/27/2017 [facility] thou/uL 9:37 AM CDT [facility] RBC Count 3.76 (L) 3.80 - 11/27/2017 [facility] 5.40 9:37 AM CDT [facility] Hemoglobin 11.6 (L) 12.0 - 11/27/2017 [facility] 16.0 g/dL 9:37 AM CDT [facility] Hematocrit 36.4 35.0 - 11/27/2017 [facility] 47.0 % 9:37 AM CDT [facility] MCV 97 80 - 100 11/27/2017 [facility] fL 9:37 AM CDT [facility] MCH 30.9 27.0 - 11/27/2017 [facility] 34.0 pg 9:37 AM CDT [facility] MCHC 31.9 (L) 32.0 - 11/27/2017 [facility] 36.0 g/dL 9:37 AM CDT [facility] RDW 14.4 11.0 - 11/27/2017 [facility] 14.5 % 9:37 AM CDT [facility] Platelet Count 304 140 - 440 11/27/2017 [facility] thou/uL 9:37 AM CDT [facility] Mean Platelet 10.7 8.5 - 12.5 11/27/2017 [facility] Volume fL 9:37 AM CDT [facility] Specimen Anatomical Collection Method / Collection Time Recei yudy Time (Source) Location / Volume Laterality Blood specimen STRUCTURE OF LEFT Venipuncture / 11/27/2017 5:37 9:12 (specimen) HAND / Unknown Unknown AM CDT AM CDT Manny Waters MD LAB - BLOOD ORDERABLES Performing Organization Address City/[facility] Phon e Number [facility] [place] [address] [address] [facility] (ABNORMAL) Prealbumin (11/27/2017 5:37 AM CDT) athologist Signature Prealbumin 13.7 (L) 19.0 - 11/27/2017 [facility] 38.0 mg/dL 9:52 AM CDT [facility] Specimen Anatomical Collection Method / Collection Time Recei yudy Time (Source) Location / Volume Laterality Blood specimen STRUCTURE OF LEFT Venipuncture / 11/27/2017 5:37 9:12 (specimen) HAND / Unknown Unknown AM CDT AM CDT Manny Waters MD LAB - BLOOD ORDERABLES Performing Organization Address City/[facility]/ZIP Code Phon e Number [facility] [place] [address] [address] [facility] documented in this encounter Visit Diagnoses Not on filedocumented in this encounter Care Teams Fisher Hand Line Relationship Specialty Start Date End Date Lucero Stevenson, PCP - General Pediatrics 10/11/11 Lucero Stevenson, PCP - Assigned PCP 06/17/18 09/18/18 MD TOÑO LOPEZ [address] [place] [address] Catalino Carballo, PCP - Assigned PCP 03/18/18 06/16/18 JUDGE'S CLERK STATEMENT REQUEST CLERK [address] [place] [address] Doris Lai MD PCP - General Internal Medicine 04/23/19 05/14/19 [address] [place] [id number] Galdino Valdez MD PCP - General Family Practice 11/29/19 02/12/20 [address] [place], [place] [phone] Jaiden Holcomb PCP - General Internal Medicine 02/13/2010/03 MD Jayesh [address] [place] [id number] Lucero Stevenson, PCP - General 05/15/1907/23/18 MD TOÑO LOPEZ [address] [place], [place] [phone] Doris Lai MD PCP - General 05/24/19 11/28/19 [address] [facility] [place] [id number] Chastity Montero MD Dermatology 09/23/14 MD Gurpreet ESP[facility] 98 [place], [place] [address] Johnnie Alcocer MD Surgeon General Surgery 03/23/17 [address] [facility] [address] [place] [address] Janie Petersen RN Clinic Care Primary Care - CC 11/17/17 01/15/18 Coordinator Janie Petersen RN Clinic Care Primary Care - CC 05/03/18 9 Coordinator Lucero Stevenson, Assigned PCP 06/17/18 MD TOÑO LOPEZ [address] [place] [address] Danni Marcus, RN Personal Advocate & 01/09/1901/17 Liaison (PAL) Kana Doshi [facility] Clinic Care Primary Care - CC 03/19/19 05/07/19 Coordinator Kyle King Complex 04/23/19 Svetlana Osman, Pharmacist Pharmacotherapy 04/23/19 [facility] [address] [facility] [place] [address] Haylie Cheung, Pharmacist Pharmacist 09/11/19 [facility] [address] [facility] [address] [place], [place] [id number] Galdino Valdez MD Assigned PCP 11/10/19 05/23/20 [address] [place], [place] [id number] Opal, Assigned Sleep 05/08/20 03/27/21 Kendall Meehan MD Provider [address] [place], [place] [phone] Erlinda Barber MD Assigned Neuroscience 05/08/20 01/26/21 [address] [facility] 295 Provider [place], [place] [phone] Jaiden Holcomb Assigned PCP 05/24/20 MD Jayesh 909 [place] [address] documented as of this encounter
--- OUTSIDE RECORDS SUMMARY | 2022-06-15 13:13 | XMS_ITS | Encounter Summary ---
:1945 Author Organization Hasty Address [address] [place] [address] Care Team Providers Name Role Phone Lucero Stevenson MD Primary Care Provider Chastity Montero MD Unavailable [phone] Johnnie Alcocer MD Unavailable Janie Petersen RN Unavailable Unavailable Janie Petersen RN Unavailable Unavailable Lucero Stevenson MD Unavailable [phone] Catalino Carballo CLINICAL PROGRAM DIRECTOR TRAVEL CLERK Unavailable [phone] Lucero Stevenson MD Unavailable [phone] Danni Marcus RN Unavailable Unavailable Kana Doshi RN VISITING Unavailable Mtm, Ea Complex Unavailable Unavailable Svetlana Osman [facility] Unavailable [phone] Doris Lai MD Primary Care Provider Haylie Cheung [facility] Unavailable [phone] Galdino Valdez MD Unavailable Galdino Valdez MD Primary Care Provider Jaiden Holcomb MD Primary Care Provider [phone] Kendall Joseph MD Unavailable Erlinda Barber MD Unavailable Jaiden Holcomb MD Unavailable [phone] Lucero Stevenson MD Primary Care Provider [phone] Doris Lai MD Primary Care Provider Reason for Visit Reason Comments Follow Up Necrotizing fasciitis/bedbou nd/morbid obesity/Scanlon catheter Encounter Details Date Type Department Care Team Description 11/27/2017 Office Visit - [facility] Manny Waters MD Nec rotizing soft tissue infection (H); [facility] Geriatrics Provider, Historical Injury of left sciatic nerve; [address]; [address] Morbid obesity (H); [place] Mass of leg, left; [phone] Mass of foot, left [phone] Social History Tobacco Use Types Packs/Day Years [...] - Inhaled Oxygen Concentration - - Weight 180.6 kg (398 lb 1.6 oz) 11/27/2017 4:13 PM CDT Height - - Body Mass Index 64.26 10/26/2017 11:26 AM CDT documented in this encounter Progress Notes Manny Waters MD - 11/27/2017 4:12 PM CDT Code Status: FULL CODE Visit Type: Problem Visit (Necrotizing fasciitis/bedbound/morbid obesity/Scanlon catheter) Facility: [facility] [[id number]] Facility Type: SNF (Intermediate Facility, TCU) History of Present Illness: Charlette Brush is a 72 y.o. female who comes to us with morbid obesity and necrotizing fasciitis. And then tragically cut sciatic nerve that is being repaired. She has been able to lose a significant amount of weight since being with us. And they have been able to accomplish her dressing changes with little problems. Review of Systems Physical Exam Constitutional: Patient in very good spirits. Her lungs are clear heart is regular rate. She has lymphedema wraps on. Vitals have been normal and lungs have been clear as noted significant weight decrease from 410-398/5 days. Vitals reviewed. Labs: All labs reviewed in the alf record. Recent Results (from the past 240 hour(s)) HM2(CBC w/o Differential) Result Value Ref Range WBC 7.5 4.0 - 11.0 thou/uL RBC 3.46 (L) 3.80 - 5.40 mill/uL Hemoglobin 10.9 (L) 12.0 - 16.0 g/dL Hematocrit 33.7 (L) 35.0 - 47.0 % MCV 97 80 - 100 fL MCH 31.5 27.0 - 34.0 pg MCHC 32.3 32.0 - 36.0 g/dL RDW 15.2 (H) 11.0 - 14.5 % Platelets 373 140 - 440 thou/uL MPV 10.4 8.5 - 12.5 fL C-Reactive Protein (CRP) Result Value Ref Range CRP 3.7 (H) 0.0 - 0.8 mg/dL Sedimentation Rate Result Value Ref Range Sed Rate 70 (H) 0 - 20 mm/hr Prealbumin Result Value Ref Range Prealbumin 13.4 (L) 19.0 - 38.0 mg/dL HM1 (CBC with Diff) Result Value Ref Range WBC 9.2 4.0 - 11.0 thou/uL RBC 3.74 (L) 3.80 - 5.40 mill/uL Hemoglobin 11.6 (L) 12.0 - 16.0 g/dL Hematocrit 37.9 35.0 - 47.0 % MCV 101 (H) 80 - 100 fL MCH 31.0 27.0 - 34.0 pg MCHC 30.6 (L) 32.0 - 36.0 g/dL RDW 15.2 (H) 11.0 - 14.5 % Platelets 377 140 - 440 thou/uL MPV 10.1 8.5 - 12.5 fL Neutrophils % 70 50 - 70 % Lymphocytes % 13 (L) 20 - 40 % Monocytes % 10 2 - 10 % Eosinophils % 7 (H) 0 - 6 % Basophils % 0 0 - 2 % Neutrophils Absolute 6.4 2.0 - 7.7 thou/uL Lymphocytes Absolute 1.2 0.8 - 4.4 thou/uL Monocytes Absolute 0.9 0.0 - 0.9 thou/uL Eosinophils Absolute 0.6 (H) 0.0 - 0.4 thou/uL Basophils Absolute 0.0 0.0 - 0.2 thou/uL Prealbumin Result Value Ref Range Prealbumin 13.7 (L) 19.0 - 38.0 mg/dL HM2(CBC w/o Differential) Result Value Ref Range WBC 7.2 4.0 - 11.0 thou/uL RBC 3.76 (L) 3.80 - 5.40 mill/uL Hemoglobin 11.6 (L) 12.0 - 16.0 g/dL Hematocrit 36.4 35.0 - 47.0 % MCV 97 80 - 100 fL MCH 30.9 27.0 - 34.0 pg MCHC 31.9 (L) 32.0 - 36.0 g/dL RDW 14.4 11.0 - 14.5 % Platelets 304 140 - 440 thou/uL MPV 10.7 8.5 - 12.5 fL Ultrasound report reveals a focus of complex fluid. One is 1.6 x 1.7 x 0.7 with a mixed hypoechoic mainly in the elongated nodular focus with slightly irregular borders. The second region of interest in the posterior leg there is a tortuous vascular venous structure consistent with a varicose vein. Assessment: 1. Necrotizing soft tissue infection 2. Injury of left sciatic nerve 3. Urinary retention 4. Morbid obesity 5. Mass of leg, left 6. Mass of foot, left Plan: We explained that the calf mass was a varicose vein. Further explained that the nodular area was a cyst possibly very much like a ganglion benign. We further discussed the possibility of weaning the catheter and at this point with her immobility and likelihood of continued urinary retention we will declined to do that. I did go over her with her her low pre-albumin and we will make efforts and write for increasing the protein in her food. Lastly we will adjust her Coumadin she currently is at 1.7 on 12 mg daily we will go up to 14 mg and recheck an INR on . She has questions about whether this will heal and I stated that we need to keep it clean and should hear from the inside going out and then as it progresses it often heals more rapidly. Grafting is not out of the question but atthis juncture we need to keep the wound clean and maximize protein which will maximize change. 35 minutes spent of which greater than 65% was face to face communication with the patient about above plan of care Electronically signed by: Manny Waters MD documented in this encounter Plan of Treatment Upcoming Encounters Date Type Specialty Care Team Description 11/15/2022 Virtual Visit Pharm Haylie Gonzalez, [facility] [address] [facility] [address] [place] [phone] (Wo winter) 11/15/2022 Virtual Visit [place] [address] [place] [address] [place] [phone] (Wo winter) 03/03/2023 Virtual Visit Neurology Erlinda Barber MD 420 [facility] 295 [place], [place] [address] (Wo winter) documented as of this encounter Visit Diagnoses Diagnosis Necrotizing soft tissue infection Injury of left sciatic nerve Urinary retention Retention of urine, unspecified Morbid obesity (H) Morbid obesity Mass of leg, left Mass of foot, left documented in this encounter Care Teams Company Controller Relationship Specialty Start Date End Date Lucero Stevenson, PCP - General Pediatrics 10/11/11 Lucero Stevenson, PCP - Assigned PCP 06/17/18 09/18/18 MD TOÑO LOPEZ [address] [place], [place] [phone] Catalino Carballo, PCP - Assigned PCP 03/18/18 06/16/18 CLINICAL PROGRAM DIRECTOR TRAVEL CLERK 1700 [place] [address] Doris Lai MD PCP - General Internal Medicine 04/23/19 05/14/[address] [place] [address] [place] [id number] Galdino Valdez MD PCP - General Family Practice 11/29/19 02/12/20 [address] [place], [place] [phone] Jaiden Holcomb PCP - General Internal Medicine 02/13/2010/03 MD Jayesh [address] [place] [address] [place] [id number] Lucero Stevenson, PCP - General 05/15/19 1 07/23/18 MD TOÑO LOPEZ [address] [place] [address] Doris Lai MD PCP - General 05/24/19 11/28/[address] [place] [address] [place] [id number] Chatsity Montero MD Dermatology 09/23/14 MD Gurpreet [facility] 98 [place], [place] [address] Johnnie Alcocer MD Surgeon General Surgery 03/23/17 [address] [facility] 300 [place], [place] [address] Janie Petersen, CHANDLER Clinic Care Primary Care - CC 11/17/17 01/15/18 Coordinator Janie Petersen, CHANDLER Clinic Care Primary Care - CC 05/03/18 9 Coordinator Lucero Stevenson, Assigned PCP 06/17/18 MD TOÑO LOPEZ [address] [place], [place] [phone] Danni Marcus, CHANDLER Personal Advocate & 01/09/1901/17 Liaison (PAL) Kana Doshi LSW Clinic Care Primary Care - CC 03/19/19 05/07/19 Coordinator Fernando Ea Complex 04/23/19 Svetlana Osman, Pharmacist Pharmacotherapy 04/23/[address] [place] [address] Haylie Cheung, Pharmacist Pharmacist 09/11/[address] [place] [address] Galdino Valdez MD Assigned PCP 11/10/19 05/23/20 [address] [place], [place] [phone] Opal, Assigned Sleep 05/08/20 03/27/21 Kendall Meehan MD Provider [address] [place] [address] Erlinda Barber MD Assigned Neuroscience 05/08/20 01/26/21 [address] [place] [facility] 295 [place] [address] Jaiden Holcomb Assigned PCP 05/24/20 MD Jayesh [address]09 [place] [address] documented as of this encounter
--- OUTSIDE RECORDS SUMMARY | 2022-06-15 13:13 | XMS_ITS | Encounter Summary ---
:1945 Author Organization Mobile Address [address] [place] [address] Care Team Providers Name Role Phone Lucero Stevenson MD Primary Care Provider Chastity Montero MD Unavailable [phone] Johnnie Alcocer MD Unavailable Janie Petersen RN Unavailable Unavailable Lucero Stevenson MD Unavailable [phone] Catalino Carballo DIDACTIC PROGRAM IN DIETETICS DIRECTOR FREELANCE DIGITAL PROJECT MANAGER Unavailable [phone] Lucero Stevenson MD Unavailable [phone] Danni Marcus RN Unavailable Unavailable Kana Doshi [employer]SH[employer] MGR Unavailable Mtm, Ea Complex Unavailable Unavailable Svetlana Osman [facility] Unavailable [phone] Doris Lai MD Primary Care Provider Haylie Cheung [facility] Unavailable [phone] Galdino Valdez MD Unavailable Galdino Valdez MD Primary Care Provider Jaiden Holcomb MD Primary Care Provider [phone] Kendall Joseph MD Unavailable Erlinda Barber MD Unavailable Jaiden Holcomb MD Unavailable Lucero Stevenson MD Primary Care Provider [phone] Doris Lai MD Primary Care Provider Encounter Details Date Type Department Care Team Description 03/21/2018 Records - [facility], Korina butterfield MD, [facility] [place] [phone] [phone] [place] [address] (Wo rk) Social History Tobacco Use Types [...] [place], [facility] [address] [place], [place] [phone] (Wo rk) 11/15/2022 Virtual Visit IM/Yane Mathias MD [address] [facility] [place] [address] (Wo rk) 03/03/2023 Virtual Visit Neurology Erlinda Barber MD 420 [facility] 295 [place], [place] [address] (Wo rk) documented as of this encounter Procedures Procedure Name Priority Date/Time Associated Diagnosis Comme nts HEMOGLOBIN Routine 03/21/2018 7:01 AM Results f or this CDT procedure are i n the results section . documented in this encounter Results (ABNORMAL) Hemoglobin (03/21/2018 7:01 AM CDT) athologist Signature Hemoglobin 11.8 (L) 12.0 - 03/21/2018 [facility] 16.0 g/dL 11:29 AM CDT [facility] Specimen Anatomical Collection Method / Collection Time Recei yudy Time (Source) Location / Volume Laterality Blood specimen STRUCTURE OF LEFT Venipuncture / 03/21/2018 7:01 11/2017 (specimen) HAND / Unknown Unknown AM CDT 11:19 AM CDT Tracey Tena MD, MD LAB - BLOOD ORDERABLES Performing Organization Address City/State/[facility] [place] [address] [id number] [place] [address] LABORATORY documented in this encounter Visit Diagnoses Not on filedocumented in this encounter Care Teams Plush Weaver Relationship Specialty Start Date End Date Lucero Stevenson, PCP - General Pediatrics 10/11/11 Lucero Stevenson, PCP - Assigned PCP 06/17/18 09/18/18 MD TOÑO LOPEZ [address] [place] [address] Catalino Carballo, PCP - Assigned PCP 03/18/18 06/16/18 DIDACTIC PROGRAM IN DIETETICS DIRECTOR FREELANCE DIGITAL PROJECT MANAGER 17[address] [place] [address] Doris Lai MD PCP - General Internal Medicine 04/23/19 05/14/19 [address] [facility] [place] [address] Galdino Valdez MD PCP - General Family Practice 11/29/19 02/12/20 [address] [place] [address] Jaiden Holcomb PCP - General Internal Medicine 02/13/2010/03 MD Jayesh [address] [place] [address] [place] [address] Lucero Stevenson, PCP - General 05/15/1907/23/18 MD TOÑO LOPEZ [address] [place] [id number] Doris Lai MD PCP - General 05/24/19 11/28/19 [address] [facility] [place] [address] Chastity Montero MD Dermatology 09/23/14 [address] [facility] 98 [place], [place] [address] Johnnie Alcocer MD Surgeon General Surgery 03/23/[address] [place], [place] [phone] Janie Petersen, CHANDLER Clinic Care Primary Care - CC 05/03/18 9 Coordinator Lucero Stevenson, Assigned PCP 06/17/18 MD TOÑO LOPEZ [address] [place], [place] [phone] Danni Marcus, RN Personal Advocate & 01/09/1901/17 Liaison (PAL) Kana Doshi [facility] Clinic Care Primary Care - CC 03/19/19 05/07/19 Coordinator Kyle King Complex 04/23/19 Svetlana Osman, Pharmacist Pharmacotherapy 04/23/19 [facility] [address] [place] [address] Haylie Cheung, Pharmacist Pharmacist 09/11/19 [facility] [address] [place], [place] [phone] Galdino Valdez MD Assigned PCP 11/10/19 05/23/20 [address] [place], [place] [phone] Opal, Assigned Sleep 05/08/20 03/27/21 Kendall Meehan MD Provider [address] [place] [address] Erlinda Barber MD Assigned Neuroscience 05/08/20 01/26/21 420 [facility] 295 Provider [place], [place] [phone] Jaiden Holcomb Assigned PCP 05/24/20 MD Jayesh 909 [place] [address] documented as of this encounter
--- OUTSIDE RECORDS SUMMARY | 2022-06-15 13:13 | XMS_ITS | Encounter Summary ---
:1945 Author Organization [place] Address [address] [place] [address] Care Team Providers Name Role Phone Lucero Stevenson MD Primary Care Provider [phone] Chastity Montero MD Unavailable [phone] Johnnie Alcocer MD Unavailable Janie Petersen RN Unavailable Unavailable Lucero Stevenson MD Unavailable [phone] Catalino Carballo RAIL FILLER FISHING VESSEL MATE Unavailable [phone] Lucero Stevenson MD Unavailable [phone] Danni Marcus RN Unavailable Unavailable Kana Doshi HEALTH INFORMATION ADMINISTRATOR Unavailable Mtm, Ea Complex Unavailable Unavailable Svetlana Osman [facility] Unavailable [phone] Doris Lai MD Primary Care Provider Haylie Cheung [facility] Unavailable [phone] Galdino Valdez MD Unavailable Galdino Valdez MD Primary Care Provider Jaiden Holcomb MD Primary Care Provider [phone] Kendall Joseph MD Unavailable Erlinda Barber MD Unavailable Jaiden Holcomb MD Unavailable [phone] Lucero Stevenson MD Primary Care Provider [phone] Doris Lai MD Primary Care Provider Encounter Details Date Type Department Care Team Description 01/25/2018 Records - [facility], Korina butterfield MD, [facility] Laboratory [place] [phone] [phone] [place] [address] (Wo rk) Social History Tobacco Use Types [...] Team Description 11/15/2022 Virtual Visit Haylie Wakefield, [facility] [address] [place], [place] [id number] (Wo rk) 11/15/2022 Virtual Visit IM/Yane Mathias MD [address] [facility] [place] [address] (Wo rk) 03/03/2023 Virtual Visit Neurology Erlinda Barber MD [address] [facility] 295 [place], [place] [address] (Wo rk) documented as of this encounter Procedures Procedure Name Priority Date/Time Associated Comments Diagnosis IRON BINDING PANEL Routine 01/25/2018 6:45 AM Res ults for this CDT procedure are i n the results section. FERRITIN Routine 01/25/2018 6:45 AM Results f or this CDT procedure are i n the results section. ERYTHROCYTE Routine 01/25/2018 6:45 AM Results f or this SEDIMENTATION RATE CDT procedure are in AUTO the results section. CRP INFLAMMATION Routine 01/25/2018 6:45 AM Resul ts for this CDT procedure are i n the results section. VITAMIN B12 Routine 01/25/2018 6:45 AM Results f or this CDT procedure are i n the results section. CBC WITH PLATELETS Routine 01/25/2018 6:45 AM Res ults for this CDT procedure are i n the results section. documented in this encounter Results Vitamin B12 (01/25/2018 6:45 AM CDT) athologist Signature Vitamin B12 345 478 - 400 01/25/2018 [facility] pg/mL 1:55 PM CDT [facility]ATORY Specimen Anatomical Collection Method / Collection Time Recei yudy Time (Source) Location / Volume Laterality Blood specimen Venipuncture / 01/25/2018 6:45 01/26/20 18 (specimen) Unknown AM CDT 11:39 AM CDT Tracey Tena MD, MD LAB - BLOOD ORDERABLES Performing Organization Address City/State/ZIP Code Phon e Number [facility] [place] [address] [id number] [place] [address] (ABNORMAL) CRP inflammation (01/25/2018 6:45 AM CDT) athologist Signature CRP 4.1 (H) 0.0 - 0.8 01/25/2018 HEALTH mg/dL 1:30 PM CDT [facility] Specimen Anatomical Collection Method / Collection Time Recei yudy Time (Source) Location / Volume Laterality Blood specimen Venipuncture / 01/25/2018 6:45 01/26/20 18 (specimen) Unknown AM CDT 11:39 AM CDT Tracey Tena MD, MD LAB - BLOOD ORDERABLES Performing Organization Address [facility] Phon e [place] [address] [address] [facility] (ABNORMAL) Erythrocyte sedimentation rate auto (01/25/2018 6:45 AM CDT) Patholo gist Method Time Signature Erythrocyte 93 (H) 0 - 20 01/25/2018 [facility] Sedimentation Rate mm/hr 12:47 PM CDT [facility] Specimen Anatomical Collection Method / Collection Time Recei yudy Time (Source) Location / Volume Laterality Blood specimen Venipuncture / 01/25/2018 6:45 01/26/20 18 (specimen) Unknown AM CDT 11:39 AM CDT Tracey Tena MD, MD LAB - BLOOD ORDERABLES Performing Organization Address [facility] Phon [place] [address] [address] [facility] (ABNORMAL) Ferritin (01/25/2018 6:45 AM CDT) P athologist Signature Ferritin 139 (H) 10 - 130 01/25/2018 [facility] ng/mL 1:54 PM CDT [facility] Specimen Anatomical Collection Method / Collection Time Recei yudy Time (Source) Location / Volume Laterality Blood specimen Venipuncture / 01/25/2018 6:45 01/26/20 18 (specimen) Unknown AM CDT 11:39 AM CDT Tracey Tena MD, MD LAB - BLOOD ORDERABLES Performing Organization Address [facility]/ZIP [facility] Phon e [place] [address] [phone] [address] [facility] (ABNORMAL) Iron binding panel (01/25/2018 6:45 AM CDT) [facility] Method Time Signature Iron 26 (L) 42 - 175 01/25/2018 [facility] ug/dL 1:30 PM CDT [facility]ORY Transferrin 144 (L) 212 - 360 01/25/2018 [facility] mg/dL 1:30 PM CDT [facility] Transferrin 14 (L) 20 - 50 % 01/25/2018 [facility] Saturation, 1:30 PM CDT [facility] LABORATORY Transferrin IBC, 180 (L) 313 - 563 01/25/2018 [facility] Calculated ug/dL 1:30 PM CDT [facility] Specimen Anatomical Collection Method / Collection Time Recei yudy Time (Source) Location / Volume Laterality Blood specimen Venipuncture / 01/25/2018 6:45 01/26/20 18 (specimen) Unknown AM CDT 11:39 AM CDT Tracey Tena MD, MD LAB - BLOOD ORDERABLES Performing Organization Address City/[facility]/ZIP [facility] Phon e [place] [address] [address] [facility] (ABNORMAL) CBC with platelets (01/25/2018 6:45 AM CDT) [facility] Method Time Signature WBC 6.6 4.0 - 11.0 01/25/2018 [facility] thou/uL 12:54 PM CDT [facility] RBC Count 4.04 3.80 - 01/25/2018 HEALTH 5.40 12:54 PM CDT [facility]/uL [facility] Hemoglobin 11.5 (L) 12.0 - 01/25/2018 [facility] 16.0 g/dL 12:54 PM CDT [facility]ORY Hematocrit 34.8 (L) 35.0 - 01/25/2018 [facility] 47.0 % 12:54 PM CDT [facility] MCV 86 80 - 100 01/25/2018 HEALTH fL 12:54 PM CDT [facility] MCH 28.5 27.0 - 01/25/2018 [facility] 34.0 pg 12:54 PM CDT [facility]ORY MCHC 33.0 32.0 - 01/25/2018 [facility] 36.0 g/dL 12:54 PM CDT [facility] RDW 14.7 (H) 11.0 - 01/25/2018 [facility] 14.5 % 12:54 PM CDT [facility] Platelet Count 477 (H) 140 - 440 01/25/2018 [facility] thou/uL 12:54 PM CDT [facility] Mean Platelet 9.7 8.5 - 12.5 01/25/2018 [facility] Volume fL 12:54 PM T [facility] Specimen Anatomical Collection Method / Collection Time Recei yudy Time (Source) Location / Volume Laterality Blood specimen Venipuncture / 01/25/2018 6:45 01/26/20 18 (specimen) Unknown AM CDT 11:39 AM CDT Tracey Tena MD, MD LAB - BLOOD ORDERABLES Performing Organization Address City/State/ZIP Code Phon e [place] [address] [address] [facility] documented in this encounter Visit Diagnoses Not on filedocumented in this encounter Care Teams Form Building Supervisor Relationship Specialty Start Date End Date Lucero Stevenson, PCP - General Pediatrics 10/11/11 Lucero Stevenson, PCP - Assigned PCP 06/17/18 09/18/18 MD TOÑO LOPEZ [address] [place], [place] [phone] Catalino Carballo, PCP - Assigned PCP 03/18/18 06/16/18 RAIL FILLER FISHING VESSEL MATE [address] [place] [address] Doris Lai MD PCP - General Internal Medicine 04/23/19 05/14/[address] [place] [id number] Galdino Valdez MD PCP - General Family Practice 11/29/19 02/12/20 [address] [place], [place] [phone] Jaiden Holcomb PCP - General Internal Medicine 02/13/2010/03 MD Jayesh [address] [place] [id number] Lucero Stevenson, PCP - General 05/15/19 1 07/23/18 MD TOÑO LOPEZ [address] [place] [id number] Doris Lai MD PCP - General 05/24/19 11/28/[address] [place] [address] Chastity Montero MD Dermatology 09/23/14 MD Gurpreet [facility] [address] [place], [place] [address] Johnnie Alcocer MD Surgeon General Surgery 03/23/17 [address] [facility] [address] [place], [place] [phone] Janie Petersen, CHANDLER Clinic Care Primary Care - CC 05/03/18 9 Coordinator Lucero Stevenson, Assigned PCP 06/17/18 MD TOÑO LOPEZ [address] [place], [place] [phone] Danni Marcus, CHANDLER Personal Advocate & 01/09/1901/17 Liaison (PAL) Kana Doshi, [facility] Clinic Care Primary Care - CC 03/19/19 05/07/19 Coordinator Kyle King Complex 04/23/19 Svetlana Osman, Pharmacist Pharmacotherapy 04/23/19 [facility] [address] [place] [address] Haylie Cheung, Pharmacist Pharmacist 09/11/19 [facility] [address] [place], [place] [phone] Galdino Valdez MD Assigned PCP 11/10/19 05/23/20 [address] [place], [place] [phone] Opal, Assigned Sleep 05/08/20 03/27/21 Kendall Meehan MD Provider [address] [place] [address] [place], [place] [phone] Erlinda Barber MD Assigned Neuroscience 05/08/20 01/26/21 [address] [place] [address] [facility] [address] [place] [address] Jaiden Holcomb Assigned PCP 05/24/20 MD Jayesh [address] [place], [place] [phone] documented as of this encounter
--- OUTSIDE RECORDS SUMMARY | 2022-06-15 13:13 | XMS_ITS | Encounter Summary ---
:1945 Author Organization [place] Address [address] [place] [address] Care Team Providers Name Role Phone Lucero Stevenson MD Primary Care Provider Chastity Montero MD Unavailable [phone] Johnnie Alcocer MD Unavailable Janie Petersen RN Unavailable Unavailable Janie Petersen RN Unavailable Unavailable Lucero Stevenson MD Unavailable [phone] Catalino Carballo BRAZING MACHINE OPERATOR HELPER AGITATOR OPERATOR Unavailable [phone] Lucero Stevenson MD Unavailable [phone] Danni Marcus RN Unavailable Unavailable Kana Doshi FURNITURE MOVER DRIVER Unavailable Mtm, Ea Complex Unavailable Unavailable Svetlana Osman [facility] Unavailable Doris Lai MD Primary Care Provider Haylie Cheung [facility] Unavailable [phone] Galdino Valdez MD Unavailable Galdino Valdez MD Primary Care Provider Jaiden Holcomb MD Primary Care Provider [phone] Kendall Joseph MD Unavailable Erlinda Barber MD Unavailable Jaiden Holcomb MD Unavailable Lucero Stevenson MD Primary Care Provider [phone] Doris Lai MD Primary Care Provider Encounter Details Date Type Department Care Team Description 12/23/2017 Records - [facility], [facility] Laboratory [address] [place] [phone] Social History Tobacco Use Types Packs/Day Years [...] [facility] [address] [facility] [place] [address] (Lena max) 11/15/2022 Virtual Visit MICHAEL/Yane Mathias MD [address] [facility] [place] [address] (Lena max) 03/03/2023 Virtual Visit Neurology Erlinda Barber MD [address] [facility] [place] [address] [place] [address] (Wo rk) documented as of this encounter Procedures Procedure Name Priority Date/Time Associated Comments Diagnosis CBC WITH PLATELETS STAT 12/23/2017 8:00 AM Res ults for this AND DIFFERENTIAL CDT procedure a re in the results section. documented in this encounter Results (ABNORMAL) CBC WITH PLATELETS AND DIFFERENTIAL (12/23/2017 8:00 AM CDT) [facility] Method Time Signature WBC 7.4 4.0 - 12/23/2017 HEALTH 11.0 10:43 AM CDT [facility] RBC Count 3.84 3.80 - 12/23/2017 HEALTH 5.40 10:43 AM CDT [facility] Hemoglobin 11.7 (L) 12.0 - 12/23/2017 [facility] 16.0 g/dL 10:43 AM CDT [facility] Hematocrit 34.3 (L) 35.0 - 12/23/2017 [facility] 47.0 % 10:43 AM CDT [facility] MCV 89 80 - 100 12/23/2017 [facility] fL 10:43 AM CDT [facility] MCH 30.5 27.0 - 12/23/2017 [facility] 34.0 pg 10:43 AM CDT [facility] MCHC 34.1 32.0 - 12/23/2017 [facility] 36.0 g/dL 10:43 AM CDT [facility] RDW 14.0 11.0 - 12/23/2017 [facility] 14.5 % 10:43 AM CDT [facility] Platelet Count 416 140 - 440 12/23/2017 [facility]/ 10:43 AM CDT [facility] Mean Platelet 9.6 8.5 - 12/23/2017 [facility] Volume 12.5 fL 10:43 AM CDT [facility] % Neutrophils 61 50 - 70 % 12/23/2017 [facility] 10:43 AM CDT [facility] % Lymphocytes 20 20 - 40 % 12/23/2017 [facility] 10:43 AM CDT [facility]. [facility] % Monocytes 9 2 - 10 % 12/23/2017 [facility] 10:43 AM CDT [facility]. [facility] % Eosinophils 9 (H) 0 - 6 % 12/23/2017 [facility] 10:43 AM CDT [facility] % Basophils 1 0 - 2 % 12/23/2017 [facility] 10:43 AM CDT [facility] Absolute 4.5 2.0 - 7.7 12/23/2017 [facility] Neutrophils thou/uL 10:43 AM CDT [facility] Absolute 1.5 0.8 - 4.4 12/23/2017 [facility] Lymphocytes thou/uL 10:43 AM CDT [facility] Absolute 0.7 0.0 - 0.9 12/23/2017 [facility] Monocytes thou/uL 10:43 AM CDT [facility] Eosinophils 0.7 (H) 0.0 - 0.4 12/23/2017 [facility] Absolute thou/uL 10:43 AM CDT [facility] Absolute 0.1 0.0 - 0.2 12/23/2017 [facility] Basophils thou/uL 10:43 AM CDT [facility] Specimen Anatomical Collection Method / Collection Time Recei yudy Time (Source) Location / Volume Laterality Blood specimen STRUCTURE OF LEFT Venipuncture / 12/23/2017 8:00 03/2018 (specimen) HAND / Unknown Unknown AM CDT 10:41 AM CDT Historical Provider LAB - BLOOD ORDERABLES Performing Organization Address City/State/ZIP Code Phon e Number [place] [address] [phone] [address] [facility] documented in this encounter Visit Diagnoses Not on filedocumented in this encounter Care Teams Acute Care Nurse Relationship Specialty Start Date End Date Graham, Lucero Annetta, PCP - General Pediatrics 10/11/11 Lucero Stevenson, PCP - Assigned PCP 06/17/18 09/18/18 MD TOÑO LOPEZ [address] [place], [place] [phone] Catalino Carballo, PCP - Assigned PCP 03/18/18 06/16/18 BRAZING MACHINE OPERATOR HELPER AGITATOR OPERATOR [address] [place] [address] Doris Lai MD PCP - General Internal Medicine 04/23/19 05/14/[address] [place] [address] [place] [phone] Galdino Valdez MD PCP - General Family Practice 11/29/19 02/12/20 [address] [place], [place] [phone] Jaiden Holcomb PCP - General Internal Medicine 02/13/2010/03 MD Jayesh [address] [place] [address] [place] [address] Lucero Stevenson, PCP - General 05/15/19 1 07/23/18 MD TOÑO LOPEZ [address] [place] [address] Doris Lai MD PCP - General 05/24/19 11/28/[address] [place] [address] [place] [phone] Chastity Montero MD Dermatology 09/23/14 MD Gurpreet [facility] [address] [place], [place] [address] Johnnie Alcocer MD Surgeon General Surgery 03/23/[address] [place], [place] [address] Janie Petersne, RN Clinic Care Primary Care - CC 11/17/17 01/15/18 Coordinator Janie Petersen, CHANDLER Clinic Care Primary Care - CC 05/03/18 9 Coordinator Lucero Stevenson, Assigned PCP 06/17/18 MD TOÑO LOPEZ [address] [place] [address] Danni Marcus, CHANDLER Personal Advocate & 01/09/1901/17 Liaison (PAL) Kana Doshi LSW Clinic Care Primary Care - CC 03/19/19 05/07/19 Coordinator Fernando Ea Complex 04/23/19 Svetlana Osman, Pharmacist Pharmacotherapy 04/23/[address] [place], [place] [phone] Haylie Cheung, Pharmacist Pharmacist 09/11/[address] [place] [address] Galdino Valdez MD Assigned PCP 11/10/19 05/23/20 [address] [place], [place] [phone] Opal, Assigned Sleep 05/08/20 03/27/21 Kendall Meehan MD Provider [address] [place] [address] Erlinda Barber MD Assigned Neuroscience 05/08/20 01/26/[address] [facility] [address] [facility] [address] [place] [address] Jaiden Holcomb Assigned PCP 05/24/20 MD Jayesh [address] [place] [address] documented as of this encounter
--- OUTSIDE RECORDS SUMMARY | 2022-06-15 13:13 | XMS_ITS | Encounter Summary ---
:1945 Author Organization [facility] Address [address] [place] [address] Care Team Providers Name Role Phone Lucero Stevenson MD Primary Care Provider Chastity Montero MD Unavailable [phone] Johnnie Alcocer MD Unavailable Janie Petersen RN Unavailable Unavailable Janie Petersen RN Unavailable Unavailable Lucero Stevenson MD Unavailable [phone] Catalino Carballo FINAL FINISHER FORGING DIES COMPRESSOR MECHANIC BUS Unavailable [phone] Lucero Stevenson MD Unavailable [phone] Danni Marcus RN Unavailable Unavailable Kana Doshi CLIENT SUCCESS SPECIALIST Unavailable Mtm, Ea Complex Unavailable Unavailable Svetlana Osman [facility] Unavailable [phone] Doris Lai MD Primary Care Provider Haylie Cheung [facility] Unavailable [phone] Galdino Valdez MD Unavailable Galdino Valdez MD Primary Care Provider Jaiden Holcomb MD Primary Care Provider [phone] Kendall Joseph MD Unavailable Erlinda Barber MD Unavailable Jaiden Holcomb MD Unavailable [phone] Lucero Stevenson MD Primary Care Provider [phone] Doris Lai MD Primary Care Provider Encounter Details Date Type Department Care Team Description 11/22/2017 Records - [facility] Chris Orlando MD [address] [id number] Social History Tobacco Use Types Packs/Day Years [...] D Haylie Cheung, [facility] [address] [facility] [place] [address] (Lena max) 11/15/2022 Virtual Visit MICHAEL/Yane Mathias MD 3614 [facility] [place] [address] (Lena max) 03/03/2023 Virtual Visit Neurology Erlinda Barber MD [address] [address] (Wo rk) documented as of this encounter Procedures Procedure Name Priority Date/Time Associated Comments Diagnosis CBC WITH PLATELETS AND Routine 11/22/2017 12:00 R esults for this DIFFERENTIAL PM CDT procedure are i n the results section. PREALBUMIN Routine 11/22/2017 12:00 Results for this PM CDT procedure are i n the results section. ERYTHROCYTE Routine 11/22/2017 12:00 Results for this SEDIMENTATION RATE PM CDT procedure are in AUTO the results section. CRP INFLAMMATION Routine 11/22/2017 12:00 Results for this PM CDT procedure are i n the results section. documented in this encounter Results (ABNORMAL) CBC WITH PLATELETS AND DIFFERENTIAL (11/22/2017 12:00 PM CDT) [facility] Method Time Signature WBC 9.2 4.0 - 11/22/2017 M [facility] 11.0 4:19 PM CDT [facility] RBC Count 3.74 (L) 3.80 - 11/22/2017 HEALTH 5.40 4:19 PM CDT [facility] Hemoglobin 11.6 (L) 12.0 - 11/22/2017 HEALTH 16.0 g/dL 4:19 PM CDT [facility] Hematocrit 37.9 35.0 - 11/22/2017 HEALTH 47.0 % 4:19 PM CDT [facility] MCV 101 (H) 80 - 100 11/22/2017 HEALTH fL 4:19 PM CDT [facility] MCH 31.0 27.0 - 11/22/2017 HEALTH 34.0 pg 4:19 PM CDT [facility] MCHC 30.6 (L) 32.0 - 11/22/2017 HEALTH 36.0 g/dL 4:19 PM CDT [facility] RDW 15.2 (H) 11.0 - 11/22/2017 HEALTH 14.5 % 4:19 PM CDT [facility] Platelet Count 377 140 - 440 11/22/2017 [facility] thou/uL 4:19 PM CDT [facility] Mean Platelet 10.1 8.5 - 11/22/2017 [facility] Volume 12.5 fL 4:19 PM CDT [facility] % Neutrophils 70 50 - 70 % 11/22/2017 [facility] 4:19 PM CDT [facility] % Lymphocytes 13 (L) 20 - 40 % 11/22/2017 [facility] 4:19 PM CDT [facility] % Monocytes 10 2 - 10 % 11/22/2017 [facility] 4:19 PM CDT [facility] % Eosinophils 7 (H) 0 - 6 % 11/22/2017 [facility] 4:19 PM CDT [facility] % Basophils 0 0 - 2 % 11/22/2017 [facility] 4:19 PM CDT [facility] Absolute 6.4 2.0 - 7.7 11/22/2017 [facility] Neutrophils thou/uL 4:19 PM CDT [facility] Absolute 1.2 0.8 - 4.4 11/22/2017 [facility] Lymphocytes thou/uL 4:19 PM CDT [facility] Absolute 0.9 0.0 - 0.9 11/22/2017 [facility] Monocytes thou/uL 4:19 PM CDT [facility] Eosinophils 0.6 (H) 0.0 - 0.4 11/22/2017 [facility] Absolute thou/uL 4:19 PM CDT [facility] Absolute 0.0 0.0 - 0.2 11/22/2017 [facility] Basophils thou/uL 4:19 PM CDT [facility] AKRONDiscourse AnalyticsS LAB[facility] Specimen Anatomical Collection Method / Collection Time Recei yudy Time (Source) Location / Volume Laterality Blood specimen STRUCTURE OF RIGHT Venipuncture / 11/22/2017 12:00 0 11/22/2017 3:58 (specimen) UPPER LIMB / Unknown PM CDT PM CDT Unknown Manny Waters MD LAB - BLOOD ORDERABLES Performing Organization Address City/State/ZIP Code Phon e Number [facility] [place] [address] [phone] [address] [facility] (ABNORMAL) Prealbumin (11/22/2017 12:00 PM CDT) P athologist Signature Prealbumin 13.4 (L) 19.0 - 11/22/2017 HEALTH 38.0 mg/dL 4:35 PM CDT [facility] Specimen Anatomical Collection Method / Collection Time Recei yudy Time (Source) Location / Volume Laterality Blood specimen STRUCTURE OF RIGHT Venipuncture / 11/22/2017 12:00 0 11/22/2017 3:58 (specimen) UPPER LIMB / Unknown PM CDT PM CDT Unknown Manny Waters MD LAB - BLOOD ORDERABLES Performing Organization Address City/State/ZIP Code Phon e Number [facility] [place] [address] [phone] [address] [facility] (ABNORMAL) Erythrocyte sedimentation rate auto (11/22/2017 12:00 PM CDT) Patholo gist Method Time Signature Erythrocyte 70 (H) 0 - 20 11/22/2017 HEALTH Sedimentation Rate mm/hr 5:38 PM CDT [facility] Specimen Anatomical Collection Method / Collection Time Recei yudy Time (Source) Location / Volume Laterality Blood specimen STRUCTURE OF RIGHT Venipuncture / 11/22/2017 12:00 0 11/22/2017 3:58 (specimen) UPPER LIMB / Unknown PM CDT PM CDT Unknown Manny Waters MD LAB - BLOOD ORDERABLES Performing Organization Address City/State/ZIP Code Phon e Number [facility] [place] [address] [address] [facility] (ABNORMAL) CRP inflammation (11/22/2017 12:00 PM CDT) P athologist Signature CRP 3.7 (H) 0.0 - 0.8 11/22/2017 [facility] mg/dL 4:33 PM CDT [facility] Specimen Anatomical Collection Method / Collection Time Recei yudy Time (Source) Location / Volume Laterality Blood specimen STRUCTURE OF RIGHT Venipuncture / 11/22/2017 12:00 0 11/22/2017 3:58 (specimen) UPPER LIMB / Unknown PM CDT PM CDT Unknown Manny Waters MD LAB - BLOOD ORDERABLES Performing Organization Address City/State/ZIP Code Phon e Number [place] [address] [address] [facility] documented in this encounter Visit Diagnoses Not on filedocumented in this encounter Care Teams Stud Beef Cattle Farmer Relationship Specialty Start Date End Date Lucero Stevenson, PCP - General Pediatrics 10/11/11 Lucero Stevenson, PCP - Assigned PCP 06/17/18 09/18/18 MD TOÑO LOPEZ [address] [place] [address] [id number] Catalino Carballo, PCP - Assigned PCP 03/18/18 06/16/18 FINAL FINISHER FORGING DIES COMPRESSOR MECHANIC BUS [address] [place] [address] Doris Lai MD PCP - General Internal Medicine 04/23/19 05/14/19 [address] [facility] [place] [id number] Galdino Valdez MD PCP - General Family Practice 11/29/19 02/12/20 [address] [place], [place] [phone] Jaiden Holcomb PCP - General Internal Medicine 02/13/2010/03 MD Jayesh [address] [place] [address] Lucero Stevenson, PCP - General 05/15/19 1 07/23/18 MD TOÑO LOPEZ [address] [place], [place] [phone] Doris Lai MD PCP - General 05/24/19 11/28/[address] [facility] [address] [place], [place] [phone] Chastity Montero MD Dermatology 09/23/14 420 [facility] [address] [place], [place] [phone] Johnnie Alcocer MD Surgeon General Surgery 03/23/17 [address] [facility] [address] [place], [place] [address] Janie Petersen, CHANDLER Clinic Care Primary Care - CC 11/17/17 01/15/18 Coordinator Janie Petersen, CHANDLER Clinic Care Primary Care - CC 05/03/18 9 Coordinator Lucero Stevenson, Assigned PCP 06/17/18 MD TOÑO LOPEZ [address]75 [place], [place] [phone] Danni Marcus, CHANDLER Personal Advocate & 01/09/1901/17 Liaison (PAL) Kana Doshi LSW Clinic Care Primary Care - CC 03/19/19 05/07/19 Coordinator Fernando, Kyle Complex 04/23/19 Svetlana Osman, Pharmacist Pharmacotherapy 04/23/19 [facility] [address] [facility] [address] Haylie Cheung, Pharmacist Pharmacist 09/11/19 [facility] [address] [facility] [address] [place], [place] [phone] Galdino Valdez MD Assigned PCP 11/10/19 05/23/20 [address] [place], [place] [phone] Opal, Assigned Sleep 05/08/20 03/27/21 Kendall Meehan MD Provider [address] [place] [address] Erlinda Barber MD Assigned Neuroscience 05/08/20 01/26/21 [address] [facility] [address] [place] [address] Jaiden Holcomb Assigned PCP 05/24/20 MD Jayesh 909 [place] [address] documented as of this encounter
--- OUTSIDE RECORDS SUMMARY | 2022-06-15 13:13 | XMS_ITS | Encounter Summary ---
:1945 Author Organization [facility] Address [address] [place] [address] Care Team Providers Name Role Phone Lucero Stevenson MD Primary Care Provider Chastity Montero MD Unavailable [phone] Johnnie Alcocer MD Unavailable Janie Petersen RN Unavailable Unavailable Janie Petersen RN Unavailable Unavailable Lucero Stevenson MD Unavailable [phone] Catalino Carballo GUIDANCE SECRETARY STRATEGIC BUYER Unavailable [phone] Lucero Stevenson MD Unavailable [phone] Danni Marcus RN Unavailable Unavailable Kana Doshi MECHANIC DRIVER Unavailable Mtm, Ea Complex Unavailable Unavailable Svetlana Osman [facility] Unavailable [phone] Doris Lai MD Primary Care Provider Haylie Cheung [facility] Unavailable Galdino Valdez MD Unavailable Galdino Valdez MD Primary Care Provider Jaiden Holcomb MD Primary Care Provider [phone] Kendall Joseph MD Unavailable Erlinda Barber MD Unavailable Jaiden Holcomb MD Unavailable [phone] Lucero Stevenson MD Primary Care Provider [phone] Doris Lai MD Primary Care Provider Encounter Details Date Type Department Care Team Description 11/20/2017 Records - [facility] Chris Orlando MD [address] [phone] Social History Tobacco Use Types Packs/Day Years [...] 11/15/2022 Virtual Visit Pharm D Haylie Cheung, [facility] 1440 [facility] [place] [address] (Lena max) 11/15/2022 Virtual Visit MICHAEL/Yane Mathias MD 7[address] [facility] [place] [address] (Lena max) 03/03/2023 Virtual Visit Neurology Erlinda Barber MD 420 [facility] 295 [place] [address] (Wo rk) documented as of this encounter Procedures Procedure Name Priority Date/Time Associated Diagnosis Comme nts CBC WITH PLATELETS Routine 11/20/2017 5:07 AM Res ults for this CDT procedure are i n the results section. documented in this encounter Results (ABNORMAL) CBC with platelets (11/20/2017 5:07 AM CDT) [facility] gist Method Time Signature WBC 7.5 4.0 - 11.0 11/20/2017 [facility] thou/uL 7:32 AM CDT [facility] RBC Count 3.46 (L) 3.80 - 11/20/2017 HEALTH 5.40 7:32 AM CDT [facility] Hemoglobin 10.9 (L) 12.0 - 11/20/2017 HEALTH 16.0 g/dL 7:32 AM CDT [facility] Hematocrit 33.7 (L) 35.0 - 11/20/2017 [facility] 47.0 % 7:32 AM CDT [facility] MCV 97 80 - 100 11/20/2017 HEALTH fL 7:32 AM CDT [facility] MCH 31.5 27.0 - 11/20/2017 HEALTH 34.0 pg 7:32 AM CDT [facility] MCHC 32.3 32.0 - 11/20/2017 HEALTH 36.0 g/dL 7:32 AM CDT [facility] RDW 15.2 (H) 11.0 - 11/20/2017 [facility] 14.5 % 7:32 AM CDT [facility] Platelet Count 373 140 - 440 11/20/2017 [facility] thou/uL 7:32 AM CDT [facility] Mean Platelet 10.4 8.5 - 12.5 11/20/2017 [facility] Volume fL 7:32 AM CDT [facility] Specimen Anatomical Collection Method / Collection Time Recei yudy Time (Source) Location / Volume Laterality Blood specimen STRUCTURE OF RIGHT Venipuncture / 11/20/2017 5:07 7:28 (specimen) HAND / Unknown Unknown AM CDT AM CDT Manny Waters MD LAB - BLOOD ORDERABLES Performing Organization Address City/State/ZIP Code Phon [place] [address] [address] [facility] documented in this encounter Visit Diagnoses Not on filedocumented in this encounter Care Teams Burlap Spreader Relationship Specialty Start Date End Date Lucero Stevenson, PCP - General Pediatrics 10/11/11 Lucero Stevenson, PCP - Assigned PCP 06/17/18 09/18/18 MD TOÑO LOPEZ [address] [place] [address] Catalino Carballo, PCP - Assigned PCP 03/18/18 06/16/18 GUIDANCE SECRETARY STRATEGIC BUYER [address] [place] [address] Doris Lai MD PCP - General Internal Medicine 04/23/19 05/14/[address] [place] [address] [place] [phone] Galdino Valdez MD PCP - General Family Practice 11/29/19 02/12/20 [address] [place], [place] [phone] Jaiedn Holcomb PCP - General Internal Medicine 02/13/2010/03 MD Jayseh 3305 [facility] [place] [phone] Lucero Stevenson, PCP - General 05/15/19 1 07/23/18 MD TOÑO LOPEZ [address] [place] [address] Doris Lai MD PCP - General 05/24/19 11/28/19 [address] [facility] [place] [address] Chastity Montero MD Dermatology 09/23/14 420 [facility] 98 [place], [place] [address] Johnnie Aclocer MD Surgeon General Surgery 03/23/17 [address] [facility] 300 [place], [place] [phone] Janie Petersen, CHANDLER Clinic Care Primary Care - CC 11/17/17 01/15/18 Coordinator Janie Petersen, CHANDLER Clinic Care Primary Care - CC 05/03/18 9 Coordinator Lucero Stevenson, Assigned PCP 06/17/18 MD TOÑO LOPEZ [address] [place] [address] Danni Marcus, CHANDLER Personal Advocate & 01/09/1901/17 Liaison (PAL) Kana Doshi LSW Clinic Care Primary Care - CC 03/19/19 05/07/19 Coordinator Fernando, Ea Complex 04/23/19 Svetlana Osman, Pharmacist Pharmacotherapy 04/23/[address] [facility] [address] [place] [address] Haylie Cheung, Pharmacist Pharmacist 09/11/[address] [facility] [address] [place] [address] Galdino Valdez MD Assigned PCP 11/10/19 05/23/20 [address] [place] [address] Opal, Assigned Sleep 05/08/20 03/27/21 Kendall Meehan MD Provider [address] [place], [place] [phone] Erlinda Barber MD Assigned Neuroscience 05/08/20 01/26/21 420 [facility] 295 [place] [address] Jaiden Holcomb Assigned PCP 05/24/20 MD Jayesh 9[address] [place], [place] [phone] documented as of this encounter
--- OUTSIDE RECORDS SUMMARY | 2022-06-15 13:13 | XMS_ITS | Encounter Summary ---
:1945 Author Organization [facility] Address [address] [place] [address] Care Team Providers Name Role Phone Lucero Stevenson MD Primary Care Provider Chastity Montero MD Unavailable [phone] Johnnie Alcocer MD Unavailable Janie Petersen RN Unavailable Unavailable Janie Petersen RN Unavailable Unavailable Lucero Stevenson MD Unavailable [phone] Catalino Carballo TECHNICAL SALES CONSULTANT SINGER AND UNLOADER Unavailable [phone] Lucero Stevenson MD Unavailable [phone] Danni Marcus RN Unavailable Unavailable Kana Doshi AGRICULTURAL CONSULTANT Unavailable Mtm, Ea Complex Unavailable Unavailable Svetlana Osman [facility] Unavailable [phone] Doris Lai MD Primary Care Provider Haylie Cheung [facility] Unavailable [phone] Galdino Valdez MD Unavailable Galdino Valdez MD Primary Care Provider Jaiden Holcomb MD Primary Care Provider [phone] Kendall Joseph MD Unavailable Erlinda Barber MD Unavailable Jaiden Holcomb MD Unavailable Lucero Stevenson MD Primary Care Provider [phone] Doris Lai MD Primary Care Provider Reason for Visit Reason Comments Discharge Summary 12/26/17 [facility] Encounter Details Date Type Department Care Team Description 12/26/2017 [facility]ergio Irwin, Geriatrics RN 1700 [place] [phone] Social History Tobacco Use Types Packs/Day Years [...] Visit Haylie [place], [facility] [address] [place], [place] [phone] (Wo rk) 11/15/2022 Virtual Visit [place] [address] [place] [address] [place] [phone] (Wo rk) 03/03/2023 Virtual Visit Neurology Erlinda Barber MD 420 [facility] 295 [place], [place] [address] (Wo rk) documented as of this encounter Visit Diagnoses Not on filedocumented in this encounter Care Teams Quill Cleaning Machine Operator Relationship Specialty Start Date End Date Lucero Stevenson, PCP - General Pediatrics 10/11/11 Lucero Stevenson, PCP - Assigned PCP 06/17/18 09/18/18 MD TOÑO LOPEZ [address] [place] [phone] Catalino Carballo, PCP - Assigned PCP 03/18/18 06/16/18 TECHNICAL SALES CONSULTANT SINGER AND UNLOADER [address] [place] [address] Doris Lai MD PCP - General Internal Medicine 04/23/19 05/14/[address] [place] [address] [place] [phone] Galdino Valdez MD PCP - General Family Practice 11/29/19 02/12/20 [address] [place], [place] [phone] Jaiden Holcomb PCP - General Internal Medicine 02/13/2010/03 MD Jayesh [address] [facility] [place] [phone] Lucero Stevenson, PCP - General 05/15/19 1 07/23/18 MD TOÑO LOPEZ [address] [place], [place] [phone] Doris Lai MD PCP - General 05/24/19 11/28/19 [address] [facility] [place] [address] Chastity Montero MD Dermatology 09/23/14 420 [facility] 98 [place], [place] [phone] Johnnie Alcocer MD Surgeon General Surgery 03/23/17 [address] [facility] [address] [place] [address] Janie Petersen, RN Clinic Care Primary Care - CC 11/17/17 01/15/18 Coordinator Janie Petersen, CHANDLER Clinic Care Primary Care - CC 05/03/18 9 Coordinator Lucero Stevenson, Assigned PCP 06/17/18 MD TOÑO LOPEZ [address] [place] [address] Danni Marcus, CHANDLER Personal Advocate & 01/09/1901/17 Liaison (PAL) Kana Doshi LSW Clinic Care Primary Care - CC 03/19/19 05/07/19 Coordinator Fernando, Ea Complex 04/23/19 Svetlana Osman, Pharmacist Pharmacotherapy 04/23/19 [facility] [address] [place] [address] Haylie Cheung, Pharmacist Pharmacist 09/11/19 [facility] [address] [place] [address] Galdino Valdez MD Assigned PCP 11/10/19 05/23/20 [address] [place], [place] [phone] Opal, Assigned Sleep 05/08/20 03/27/21 Kendall Meehan MD Provider [address] [place] [address] Erlinda Barber MD Assigned Neuroscience 05/08/20 01/26/21 420 [facility] [address] [place] [address] Jaiden Holcomb Assigned PCP 05/24/20 MD Jayesh 909 [place] [address] documented as of this encounter
--- OUTSIDE RECORDS SUMMARY | 2022-06-15 13:13 | XMS_ITS | Encounter Summary ---
:1945 Author Organization [place] Address [address] [place] [address] Care Team Providers Name Role Phone Lucero Stevenson MD Primary Care Provider Chastity Montero MD Unavailable [phone] Johnnie Alcocer MD Unavailable Janie Petersen RN Unavailable Unavailable Janie Petersen RN Unavailable Unavailable Lucero Stevenson MD Unavailable [phone] Catalino Carballo FRANCHISE SPECIALIST ROUND KILN DRAWER Unavailable [phone] Lucero Stevenson MD Unavailable [phone] Danni Marcus RN Unavailable Unavailable Kana Doshi CAREER CENTER ADVISOR Unavailable Mtm, Ea Complex Unavailable Unavailable Svetlana Osman [facility] Unavailable [phone] Doris Lai MD Primary Care Provider Haylie Cheung [facility] Unavailable [phone] Galdino Valdez MD Unavailable Galdino Valdez MD Primary Care Provider Jaiden Holcomb MD Primary Care Provider [phone] Kendall Joseph MD Unavailable Erlinda Barber MD Unavailable Jaiden Holcomb MD Unavailable [phone] Lucero Stevenson MD Primary Care Provider [phone] Doris Lai MD Primary Care Provider Reason for Visit Reason Comments Follow Up Bilateral pedal edema/necrot izing fasciitis/Coumadin adjustment Encounter Details Date Type Department Care Team Description 12/04/2017 Office Visit - [facility] Manny Waters MD Nec rotizing soft tissue infection (H); [facility] Geriatrics Provider, Historical Morbid obesity (H); [address] [place] [address] Social History Tobacco Use Types Packs/Day Years [...] - Inhaled Oxygen Concentration - - Weight 176.2 kg (388 lb 6.4 oz) 12/04/2017 5:21 PM CDT Height - - Body Mass Index 62.69 10/26/2017 11:26 AM CDT documented in this encounter Progress Notes Manny Waters MD - 12/04/2017 5:20 PM CDT Code Status: FULL CODE Visit Type: Problem Visit (Bilateral pedal edema/necrotizing fasciitis/Coumadin adjustment) Facility: [facility] [[id number]] Facility Type: SNF ([facility], TCU) History of Present Illness: Charlette Brush is a 72 y.o. female has a significant necrotizing fasciitis in her back and recently with edema or abscess requiring going all the way up she has not been able to turn secondary to not being able to flex her knee. Also the Eileen lift has been very painful forher as it sits on the left are in areas where it pinches. Review of Systems Physical Exam Constitutional: Patient's dressings are fully wrapped at this juncture. She still has the massive edema. Dr. Quinones has been attending to the wound care areas. Her INR today is 2.8. Vitals reviewed. Labs: All labs reviewed in the correction record. Assessment: 1. Necrotizing soft tissue infection 2. Morbid obesity 3. Lymphedema Plan: In regards to the Eileen lift we have ordered some special straps and I have asked staff to write a lifting protocol that everyone can use it. We will for the Coumadin go with 12 mg alternating 14mg and recheck an INR on . I would like the patient to be up 3 times a day and reinforced that that was the need. 25 minutes spent of which greater than 65% was face to face communication with the patient about above plan of care Electronically signed by: Manny Waters MD documented in this encounter Plan of Treatment Upcoming Encounters Date Type Specialty Care Team Description 11/15/2022 Virtual Visit Pharm Haylie Gonzalez, [facility] [address] [facility] [place] [address] (Lena max) 11/15/2022 Virtual Visit IM/Peds Yane Barraza MD [address] [facility] [place] [address] (Lena max) 03/03/2023 Virtual Visit Neurology Erlinda Barber MD 420 [facility] 295 [place] [address] (Wo rk) documented as of this encounter Visit Diagnoses Diagnosis Necrotizing soft tissue infection Morbid obesity (H) Morbid obesity Lymphedema Other lymphedema documented in this encounter Care Teams Family Nurse Relationship Specialty Start Date End Date Lucero Stevenson, PCP - General Pediatrics 10/11/11 Lucero Stevenson, PCP - Assigned PCP 06/17/18 09/18/18 MD TOÑO LOPEZ [address] [place], [place] [phone] Catalino Carballo, PCP - Assigned PCP 03/18/18 06/16/18 FRANCHISE SPECIALIST ROUND KILN DRAWER 17[address] [place] [address] Doris Lai MD PCP - General Internal Medicine 04/23/19 05/14/[address] [place] [address] [place] [phone] Galdino Valdez MD PCP - General Family Practice 11/29/19 02/12/20 [address] [place], [place] [phone] Jaiden Holcomb PCP - General Internal Medicine 02/13/2010/03 MD Jayesh [address] [facility] [place] [id number] Lucero Stevenson, PCP - General 05/15/19 1 07/23/18 MD TOÑO LOPEZ [address] [place], [place] [phone] Doris Lai MD PCP - General 05/24/19 11/28/19 [address] [facility] [place] [address] Chastity Montero MD Dermatology 09/23/14 420 [facility] 98 [place], [place] [address] Johnnie Alcocer MD Surgeon General Surgery 03/23/17 [address] [facility] [address] [place] [address] Janie Petersen, CHANDLER Clinic Care Primary Care - CC 11/17/17 01/15/18 Coordinator Janie Petersen, CHANDLER Clinic Care Primary Care - CC 05/03/18 9 Coordinator Lucero Stevenson, Assigned PCP 06/17/18 MD TOÑO LOPEZ [address] [place] [address] Danni Marcus, CHANDLER Personal Advocate & 01/09/1901/17 Liaison (PAL) Kana Doshi LSW Clinic Care Primary Care - CC 03/19/19 05/07/19 Coordinator Kyle King Complex 04/23/19 Svetlana Osman, Pharmacist Pharmacotherapy 04/23/19 [facility] [address] [place] [address] Haylie Cheung, Pharmacist Pharmacist 09/11/19 [facility] [address] [place], [place] [phone] Galdino Valdez MD Assigned PCP 11/10/19 05/23/20 [address] [place], [place] [phone] Opal, Assigned Sleep 05/08/20 03/27/21 Kendall Meehan MD Provider [address] [place], [place] [address] Erlinda Barber MD Assigned Neuroscience 05/08/20 01/26/21 420 [facility] 295 [place] [address] Jaiden Holcomb Assigned PCP 05/24/20 MD Jayesh 909 [place] [address] documented as of this encounter
--- OUTSIDE RECORDS SUMMARY | 2022-06-15 13:13 | XMS_ITS | Encounter Summary ---
:1945 Author Organization [place] Address [address] [place] [address] Care Team Providers Name Role Phone Lucero Stevenson MD Primary Care Provider Chastity Montero MD Unavailable [phone] Johnnie Alcocer MD Unavailable Janie Petersen RN Unavailable Unavailable Lucero Stevenson MD Unavailable [phone] Catalino Carballo I&C TECH MARKETING ADMINISTRATIVE ASSISTANT Unavailable [phone] Lucero Stevenson MD Unavailable [phone] Danni Marcus RN Unavailable Unavailable Kana Doshi ACCOUNT UNDERWRITER Unavailable Mtm, Ea Complex Unavailable Unavailable Svetlana Osman [facility] Unavailable [phone] Doris Lai MD Primary Care Provider Haylie Cheung [facility] Unavailable [phone] Galdino Valdez MD Unavailable Galdino Valdez MD Primary Care Provider Jaiden Holcomb MD Primary Care Provider [phone] Kendall Joseph MD Unavailable Erlinda Barber MD Unavailable Jaiden Holcomb MD Unavailable Lucero Stevenson MD Primary Care Provider [phone] Doris Lai MD Primary Care Provider Encounter Details Date Type Department Care Team Description 01/31/2018 Records - [facility], Korina butterfield MD, [facility] Laboratory [place] [phone] [phone] [place] [address] (Wo rk) Social History Tobacco Use Types [...] Team Description 11/15/2022 Virtual Visit Haylie [place], [facility] [address] [facility] [address] [place], [place] [phone] (Wo rk) 11/15/2022 Virtual Visit IM/Yane Mathias MD [address] [facility] [place] [address] (Wo rk) 03/03/2023 Virtual Visit Neurology Erlinda Barber MD 420 [facility] 295 [place] [address] (Wo rk) documented as of this encounter Procedures Procedure Name Priority Date/Time Associated Comments Diagnosis COMPREHENSIVE Routine 02/01/2018 6:00 AM Results for this METABOLIC PANEL CDT procedure ar e in the results section. documented in this encounter Results (ABNORMAL) Comprehensive metabolic panel (02/01/2018 6:00 AM CDT) [facility] Method Time Signature Sodium 139 136 - 145 02/01/2018 HEALTH mmol/L 10:02 AM CDT [facility] Potassium 3.8 3.5 - 5.0 02/01/2018 [facility]ALTH mmol/L 10:02 AM T [facility] Chloride 106 98 - 107 02/01/2018 [facility] mmol/L 10:02 AM T [facility] Carbon Dioxide 27 22 - 31 02/01/2018 [facility] (CO2) mmol/L 10:02 AM T [facility] Anion Gap 6 5 - 18 02/01/2018 [facility] mmol/L 10:02 AM T [facility] Glucose 97 70 - 125 02/01/2018 [facility] mg/dL 10:02 AM T [facility] Urea Nitrogen 15 8 - 28 02/01/2018 [facility] mg/dL 10:02 AM T [facility] Creatinine 0.48 (L) 0.60 - 02/01/2018 [facility] 1.10 10:02 AM CDT [facility] mg[facility]dL [facility] GFR Estimate If >60 >60 02/01/2018 [facility] Black mL/min/1. 10:02 AM CDT [facility] 73m2 [facility] GFR Estimate >60 >60 02/01/2018 [facility] mL/min/1. 10:02 AM CDT [facility] 73m2 [facility] Bilirubin Total 0.3 0.0 - 1.0 02/01/2018 [facility] mg/dL 10:02 AM T [facility] Calcium 9.0 8.5 - 02/01/2018 [facility] 10.5 10:02 AM T [facility] mg/dL [facility] Protein Total 5.8 (L) 6.0 - 8.0 02/01/2018 [facility] g/dL 10:02 AM T [facility] Albumin 2.1 (L) 3.5 - 5.0 02/01/2018 [facility] g/dL 10:02 AM T [facility] Alkaline 64 45 - 120 02/01/2018 [facility] Phosphatase U/L 10:02 AM T [facility] AST 17 0 - 40 02/01/2018 [facility] U/L 10:02 AM T [facility] ALT 14 0 - 45 02/01/2018 [facility] U/L 10:02 AM T [facility] Specimen Anatomical Collection Method / Collection Time Recei yudy Time (Source) Location / Volume Laterality Blood specimen STRUCTURE OF LEFT Venipuncture / 02/01/2018 6:00 9:19 (specimen) HAND / Unknown Unknown AM CDT AM CDT Narrative [facility] - 02/01/2018 10:02 AM CDT Fasting Glucose reference range is 70-99 mg/dL per [place] [employer] (ADA) shanda bailon. Tracey Tena MD, MD LAB - BLOOD ORDERABLES Performing Organization Address City/State/ZIP Code [place] [address] [id number] [place] [address] LABORATORY O [facility] [address] [place] [address], [facility] documented in this encounter Visit Diagnoses Not on filedocumented in this encounter Care Teams Canteen Operator Relationship Specialty Start Date End Date Lucero Stevenson, PCP - General Pediatrics 10/11/11 Lucero Stevenson, PCP - Assigned PCP 06/17/18 09/18/18 MD TOÑO LOPEZ [address] [place], [place] [phone] Catalino Carballo, PCP - Assigned PCP 03/18/18 06/16/18 I&C TECH [facility] 1700 [place] [address] Doris Lai MD PCP - General Internal Medicine 04/23/19 05/14/19 [address] [facility] [place] [phone] Galdino Valdez MD PCP - General Family Practice 11/29/19 02/12/20 [address] [place], [place] [phone] Jaiden Holcomb PCP - General Internal Medicine 02/13/2010/03 MD Jayesh [address] [place] [address] [address] [place] [phone] Lucero Stevenson, PCP - General 05/15/19 1 07/23/18 MD TOÑO LOPEZ [address] [place] [phone] Doris Lai MD PCP - General 05/24/19 11/28/19 [address] [facility] [place] [phone] Chastity Montero MD Dermatology 09/23/14 MD Gurpreet [facility] 98 [place], [place] [address] Johnnie Alcocer MD Surgeon General Surgery 03/23/17 [address] [facility] [address] [place] [address] Janie Petersen, CHANDLER Clinic Care Primary Care - CC 05/03/18 9 Coordinator Lucero Stevenson, Assigned PCP 06/17/18 MD TOÑO LOPEZ [address]75 [place] [address] Danni Marcus, CHANDLER Personal Advocate & 01/09/1901/17 Liaison (PAL) Kana Doshi, [facility] Clinic Care Primary Care - CC 03/19/19 05/07/19 Coordinator Kyle King Complex 04/23/19 Svetlana Osman, Pharmacist Pharmacotherapy 04/23/19 [facility] [address] [facility] [address] [place], [place] [phone] Haylie Cheung, Pharmacist Pharmacist 09/11/19 [facility] [address] [facility] [address] [place], [place] [phone] Galdino Valdez MD Assigned PCP 11/10/19 05/23/20 [address] [place], [place] [phone] Opal, Assigned Sleep 05/08/20 03/27/21 Kendall Meehan MD Provider [address] [place], [place] [phone] Erlinda Barber MD Assigned Neuroscience 05/08/20 01/26/21 [address] [facility] 295 [place] [address] Jaiden Holcomb Assigned PCP 05/24/20 MD Jayesh 909 [place], [place] [phone] documented as of this encounter
--- OUTSIDE RECORDS SUMMARY | 2022-06-15 13:13 | XMS_ITS | Encounter Summary ---
:1945 Author Organization [place] Address [address] [place] [address] Care Team Providers Name Role Phone Lucero Stevenson MD Primary Care Provider Chastity Montero MD Unavailable [phone] Johnnie Alcocer MD Unavailable Janie Petersen RN Unavailable Unavailable Lucero Stevenson MD Unavailable [phone] Catalino Carballo HAND BUFFER BASEBALL WINDER Unavailable [phone] Lucero Stevenson MD Unavailable [phone] Danni Marcus RN Unavailable Unavailable Kana Doshi RN DOCUMENTATION Unavailable Mtm, Ea Complex Unavailable Unavailable Svetlana Osman [facility] Unavailable [phone] Doris Lai MD Primary Care Provider Haylie Cheung [facility] Unavailable [phone] Galdino Valdez MD Unavailable Galdino Valdez MD Primary Care Provider Jaiden Holcomb MD Primary Care Provider [phone] Kendall Joseph MD Unavailable Erlinda Barber MD Unavailable Jaiden Holcomb MD Unavailable Lucero Stevenson MD Primary Care Provider [phone] Doris Lai MD Primary Care Provider Encounter Details Date Type Department Care Team Description 02/25/2018 Records - [facility] [address] [place] [phone] Social History Tobacco Use Types Packs/Day Years [...] Cheung, [facility] [address] [facility] [place] [address] (Lena max) 11/15/2022 Virtual Visit IM/PedYane Muir MD [address] [facility] [place] [address] (Lena max) 03/03/2023 Virtual Visit Neurology Erlinda Barber MD [address] [place] [address] [facility] [address] [place], [place] [address] (Wo rk) documented as of this encounter Procedures Procedure Name Priority Date/Time Associated Comments Diagnosis URINE CULTURE - Routine 02/25/2018 8:00 PM Result s for this HISTORICAL CDT procedure are i n the results section. ROUTINE UA WITH Routine 02/25/2018 8:00 PM Result s for this MICROSCOPIC CDT procedure are i n the results section. documented in this encounter Results (ABNORMAL) Urine Culture - Historical (02/25/2018 8:00 PM CDT) [facility] Squla Method Time Signature Culture ENTEROCOCCUS 02/27/2018 HEALTH SPECIES (A) 8:57 AM CDT [facility] Comment: 50,000-100,000 col/ml Enterococ cus species Specimen Anatomical Collection Method Collection Time Receive d Time (Source) Location / / Volume Laterality Urine specimen Non-blood 02/25/2018 8:00 PM 018 (specimen) Collection / CDT 10:25 PM CDT Unknown Historical Provider LAB - MICRO GENERAL ORDERABL ES Performing Organization Address City/State/ZIP Code Phon e Number [facility] [phone] [place] [address] LABORATORY (ABNORMAL) UA with Microscopic (02/25/2018 8:00 PM CDT) [facility] Method Time Signature Color Urine Straw Colorless, 02/25/2018 [facility] Yellow, 10:58 PM [facility] Straw, [facility] LABORATORY Yellow Appearance Urine Slightly Clear 02/25/2018 [facility] Cloudy (A) 10:58 PM [facility] Glucose Urine Negative Negative 02/25/2018 [facility] 10:58 PM [facility] Bilirubin Urine Negative Negative 02/25/2018 [facility] 10:58 PM [facility] Ketones Urine Negative Negative 02/25/2018 [facility] 10:58 PM [facility] Specific Olga 1.006 1.001 - 02/25/2018 [facility] Urine 1.030 10:58 PM [facility] Blood Urine Moderate Negative 02/25/2018 [facility] (A) 10:58 PM [facility] pH Urine 7.0 4.5 - 8.0 02/25/2018 [facility] 10:58 PM [facility] Protein Albumin Negative Negative 02/25/2018 [facility] Urine mg/dL 10:58 PM [facility] Urobilinogen <2.0 <2.0 02/25/2018 [facility] Urine E.U./dL E.U./dL, 10:58 PM [facility] 2.0 E.U./dL [facility] Nitrite Urine Negative Negative 02/25/2018 [facility] 10:58 PM [facility] Leukocyte Large (A) Negative 02/25/2018 [facility] Esterase Urine 10:58 PM [facility] Bacteria Urine Moderate None Seen 02/25/2018 [facility] (A) hpf 10:58 PM [facility] RBC Urine 0-2 None Seen, 02/25/2018 [facility] 0-2 hpf 10:58 PM [facility] WBC Urine 50-100 (A) None Seen, 02/25/2018 [facility] 0-5 hpf 10:58 PM [facility] Squamous 0-5 None Seen, 02/25/2018 [facility] Epithelials 0-5 lpf 10:58 PM [facility] Urine [facility] WBC Clumps Urine Present (A) None Seen 02/25/2018 [facility] 10:58 PM [facility] Calcium Oxalate Present (A) None Seen 02/25/2018 [facility] Crystals Urine 10:58 PM [facility] Specimen Anatomical Collection Method Collection Time Receive d Time (Source) Location / / Volume Laterality Urine specimen Non-blood 02/25/2018 8:00 PM 018 (specimen) Collection / CDT 10:25 PM CDT Unknown Narrative [facility] - 02/25/2018 10:58 PM CDT Manual microscope performed Historical Provider LAB - URINE ORDERABLES Performing Organization Address City/State/ZIP Code Phon [place] [address] [id number] [place], [place] [address]ruce LABORATORY [facility] [address] [place] [address], [facility] documented in this encounter Visit Diagnoses Not on filedocumented in this encounter Care Teams Marketing Technology Specialist Relationship Specialty Start Date End Date Lucero Stevenson, PCP - General Pediatrics 10/11/11 Lucero Stevenson, PCP - Assigned PCP 06/17/18 09/18/18 MD TOÑO LOPEZ [address] [place] [phone] Catalino Carballo, PCP - Assigned PCP 03/18/18 06/16/18 HAND BUFFER BASEBALL WINDER [address] [place] [address] Doris Lai MD PCP - General Internal Medicine 04/23/19 05/14/19 [address] [facility] [place] [phone] Galdino Valdez MD PCP - General Family Practice 11/29/19 02/12/20 [address] [place], [place] [phone] Jaiden Holcomb PCP - General Internal Medicine 02/13/2010/03 MD Jayesh [address] [facility] [place] [address] Lucero Stevenson, PCP - General 05/15/19 1 07/23/18 MD TOÑO LOPEZ 8675 [place] [address] Doris Lai MD PCP - General 05/24/19 11/28/19 [address] [facility] [address] [place], [place] [phone] Chastity Montero MD Dermatology 09/23/14 420 [facility] 98 [place], [place] [address] Johnnie Alcocer MD Surgeon General Surgery 03/23/17 [address] [facility] 300 [place], [place] [phone] Janie Petersen, CHANDLER Clinic Care Primary Care - CC 05/03/18 9 Coordinator Lucero Stevenson, Assigned PCP 06/17/18 MD TOÑO LOPEZ [address] [place], [place] [phone] Danni Marcus, CHANDLER Personal Advocate & 01/09/1901/17 Liaison (PAL) Kana Doshi LSW Clinic Care Primary Care - CC 03/19/19 05/07/19 Coordinator Fernando, Ea Complex 04/23/19 Svetlana Osman, Pharmacist Pharmacotherapy 04/23/19 [facility] [address] [place] [place], [place] [phone] Haylie Cheung, Pharmacist Pharmacist 09/11/19 [facility] [address] [place] [address] Galdino Valdez MD Assigned PCP 11/10/19 05/23/20 [address] [place], [place] [phone] Opal Assigned Sleep 05/08/20 03/27/21 Kendall Meehan MD Provider [address] [place] [address] Erlinda Barber MD Assigned Neuroscience 05/08/20 01/26/21 420 [facility] 295 [place] [address] Jaiden Holcomb Assigned PCP 05/24/20 MD Jayesh 909 [place] [address] documented as of this encounter
--- OUTSIDE RECORDS SUMMARY | 2022-06-15 13:13 | XMS_ITS | Encounter Summary ---
:1945 Author Organization [facility] Address [address] [place] [address] Care Team Providers Name Role Phone Lucero Stevenson MD Primary Care Provider Chastity Montero MD Unavailable [phone] Johnnie Alcocer MD Unavailable Janie Petersen RN Unavailable Unavailable Lucero Stevenson MD Unavailable [phone] Catalino Carballo MAILING SECTION CLERK SHOULDER BONER Unavailable [phone] Lucero Stevenson MD Unavailable [phone] Danni Marcus RN Unavailable Unavailable Kana Doshi DERMATOLOGY NURSE PRACTITIONER Unavailable Mtm, Ea Complex Unavailable Unavailable Svetlana Osman [facility] Unavailable [phone] Doris Lai MD Primary Care Provider Haylie Cheung [facility] Unavailable [phone] Galdino Valdez MD Unavailable Galdino Valdez MD Primary Care Provider Jaiden Holcomb MD Primary Care Provider [phone] Kendall Joseph MD Unavailable Erlinda Barber MD Unavailable Jaiden Holcomb MD Unavailable [phone] Lucero Stevenson MD Primary Care Provider [phone] Doris Lai MD Primary Care Provider Encounter Details Date Type Department Care Team Description 03/15/2018 Records - [facility], Korina butterfield MD, [facility] [place] [phone] [phone] [place] [address] (Wo rk) Social History Tobacco Use Types [...] [place], [facility] [address] [place], [place] [phone] (Wo rk) 11/15/2022 Virtual Visit IM/Yane Mathias MD [address] [facility] [place] [address] (Wo rk) 03/03/2023 Virtual Visit Neurology Erlinda Barber MD [address] [facility] [address] [place], [place] [address] (Wo rk) documented as of this encounter Procedures Procedure Name Priority Date/Time Associated Diagnosis Comme nts HEMOGLOBIN Routine 03/15/2018 7:31 AM Results f or this CDT procedure are i n the results section . documented in this encounter Results (ABNORMAL) Hemoglobin (03/15/2018 7:31 AM CDT) athologist Signature Hemoglobin 11.7 (L) 12.0 - 03/15/2018 [facility] 16.0 g/dL 3:01 PM CDT [facility] Specimen Anatomical Collection Method / Collection Time Recei yudy Time (Source) Location / Volume Laterality Blood specimen STRUCTURE OF LEFT Venipuncture / 03/15/2018 7:31 2:53 (specimen) HAND / Unknown Unknown AM CDT PM CDT Tracey Tena MD, MD LAB - BLOOD ORDERABLES Performing Organization Address City/State/[facility] [place] [id number] [place] [address] LABORATORY documented in this encounter Visit Diagnoses Not on filedocumented in this encounter Care Teams Senior Information Security Analyst Relationship Specialty Start Date End Date Lucero Stevenson, PCP - General Pediatrics 10/11/11 Lucero Stevenson, PCP - Assigned PCP 06/17/18 09/18/18 MD TOÑO LOPEZ [address] [place] [address] Catalino Carballo, PCP - Assigned PCP 03/18/18 06/16/18 MAILING SECTION CLERK SHOULDER BONER [address] [place] [address] Doris Lai MD PCP - General Internal Medicine 04/23/19 05/14/19 [address] [facility] [place] [address] Galdino Valdez MD PCP - General Family Practice 11/29/19 02/12/20 [address] [place] [address] Jaiden Holcomb PCP - General Internal Medicine 02/13/2010/03 MD Jayesh [address] [place] [address] [place] [address] Lucero Stevenson, PCP - General 05/15/1907/23/18 MD TOÑO LOPEZ [address] [place] [id number] Doris Lai MD PCP - General 05/24/19 11/28/19 [address] [facility] [place] [address] Chastity Montero MD Dermatology 09/23/14 [address] [facility] 98 [place], [place] [address] Johnnie Alcocer MD Surgeon General Surgery 03/23/[address] [place], [place] [phone] Janie Petersen, [facility] Clinic Care Primary Care - CC 05/03/18 9 Coordinator Lucero Stevenson, Assigned PCP 06/17/18 MD TOÑO LOPEZ [address] [place], [place] [id number] Danni Marcus, RN Personal Advocate & 01/09/1901/17 Liaison (PAL) Kana Doshi [facility] Clinic Care Primary Care - CC 03/19/19 05/07/19 Coordinator Kyle King Complex 04/23/19 Svetlana Osman, Pharmacist Pharmacotherapy 04/23/19 [facility] [address] [place] [address] Haylie Cheung, Pharmacist Pharmacist 09/11/19 [facility] [address] [place], [place] [phone] Galdino Valdez MD Assigned PCP 11/10/19 05/23/20 [address] [place], [place] [phone] Opal, Assigned Sleep 05/08/20 03/27/21 Kendall Meehan MD Provider [address] [place] [address] Erlinda Barber MD Assigned Neuroscience 05/08/20 01/26/21 [address] [facility] [address] Provider [place], [place] [phone] Jaiden Holcomb Assigned PCP 05/24/20 MD Jayesh [address] [place] [address] documented as of this encounter
--- OUTSIDE RECORDS SUMMARY | 2022-06-15 13:14 | XMS_ITS | Encounter Summary ---
:1945 Author Organization [facility] Address [address] [place] [address] Care Team Providers Name Role Phone Lucero Stevenson MD Primary Care Provider [phone] Chastity Montero MD Unavailable [phone] Johnnie Alcocer MD Unavailable sFannie RN Unavailable Reason for Visit Reason Onset Date Comments Forms 10/25/2017 Encounter Details Date Type Department Care Team Description 10/25/2017 Telephone [facility] Stefanie Stevenson, Esteban Santoyo MD [address] [place] [address] [place] [address] [phone] Social History Tobacco Use Types Packs/Day Years [...] this encounter Miscellaneous Notes Telephone Encounter - Kim Watson - 10/26/2017 8:07 AM CDT Received forms. Called [facility] and [facility]. Pt must be seen in clinic to meet medicare criteria. Pt is currently hospitalized. Will hold onto forms until hospital follow up. Telephone Encounter - Kim Watson - 10/26/2017 7:33 AM CDT Left message for [facility]. Forms have not been received. Gave him [facility] fax number for him to re-send. Kim Watson Telephone Encounter - Erinn Marsh, RN - 10/25/2017 3:55 PM CDT [employer] calling to confirm that the 2 forms for the prescription and certificate of medical necessity were received for a compression pump. [phone] ok to lm. Hurtado documented in this encounter Plan of Treatment Upcoming Encounters Date Type Specialty Care Team Description 11/15/2022 Virtual Visit Pharm D Haylie Cheung, [facility] [address] [facility] [place] [address] (Wo winter) 11/15/2022 Virtual Visit IM/Peds Yane Barraza MD [address] [facility] [place] [address] (Lena max) 03/03/2023 Virtual Visit Neurology Erlinda Barber MD [address] [facility] [place] [address] [place], [place] [address] (Wo rk) documented as of this encounter Visit Diagnoses Not on filedocumented in this encounter Care Teams Histopath Tech Relationship Specialty Start Date End Date Lucero Stevenson PCP - General Pediatrics 10/11/11 04/22/19 MD Annetta Chastity Montero MD Dermatology 09/23/[address] [place] [address] 98 [place] [address] Johnnie Alcocer MD Surgeon General Surgery 03/23/17 [address] [facility] [address] [place] [address] Fannie Coleman, RN Clinic Hand Stoner Primary Care - CC 10/26/17 11/14/17 documented as of this encounter
--- OUTSIDE RECORDS SUMMARY | 2022-06-15 13:14 | XMS_ITS | Encounter Summary ---
:1945 Author Organization [facility] Address [address] [place] [address] Care Team Providers Name Role Phone Lucero Stevenson MD Primary Care Provider [phone] Chastity Montero MD Unavailable [phone] Johnnie Alcocer MD Unavailable sFannie RN Unavailable Reason for Visit Reason Comments Hospital F/U Encounter Details Date Type Department Care Team Description 10/26/2017 [facility] Catalino Carballo ulcer of contiguous region involving left buttock and hip, unstageable (H) (Primary Dx); Visit Geriatric MIGEL Valdez CNP Cellulitis of left lower extremity; Transitional Care [address] Lymphedema of both lower ext remities; [address] [facility] [address] Traumatic rhabdomyolysis, subsequent enc ounter; [place] [address] [place] [address] Morbid obesity (H); [phone] Pulmonary embol ism and infarction (H); (Work) CEFERINO (obstructive sleep apnea); Essential hypertension, benign; Diarrhea, unspe cified type; Physical decond itioning Social History Tobacco Use Types Packs/Day Years [...] Sign Reading Time Taken Comments Blood Pressure 133/69 10/26/2017 11:26 AM CDT Pulse 95 10/26/2017 11:26 AM CDT Temperature 37.3 ??C (99.2 ??F) 10/26/2017 11:26 AM CDT Respiratory Rate 18 10/26/2017 11:26 AM CDT Oxygen Saturation 93% 10/26/2017 11:26 AM CDT Inhaled Oxygen Concentration - - Weight 194 kg (427 lb 12.8 oz) 10/26/2017 11:26 AM CDT Height 167.6 cm (5' 6) 10/26/2017 11:26 AM CDT Body Mass Index 69.05 10/26/2017 11:26 AM CDT documented in this encounter Progress Notes Catalino Carballo, MIGEL ELEMENTARY SPECIAL EDUCATION TEACHER - 10/26/2017 8:30 AM CDT [facility] PRIMARY CARE PROVIDER AND CLINIC: Lucero Stevenson [address] [facility] [place] [address] Chief Complaint Patient presents with ??? Hospital F/U HPI: Charlette Brush is a 72 year old (1945),admitted to the [facility] from [facility]. Hospital stay 10/19/27 through 10/25/17. Admitted to this facility for rehab, medical management and nursing care. HPI information obtained from: facility chart records, facility staff, patient report and [facility] chart review. She was hospitalized after a mechanical fall and being down for 3 days at home. She fell in the bathroom and her left leg was wedged under the bathtub. She was found to have acute rhabdomyolysis, multiple pressure areas and LLE cellulitis. [facility] nurse consulted. HCTZ discontinued due to rhabdomyolysis. She was treated with IV clindamycin and discharged with oral clinda for 3 days. Coumadin continued for history of PE. Current issues are: Pressure ulcer of contiguous region involving left buttock and hip, unstageable (H)-reports minimal pain with wound care, otherwise comfortable. Fu patent. On pressure reducing mattress. Afebrile. Cellulitis of left lower extremity Lymphedema of both lower extremities-has been followed by lymphedema specialists in the past. Reports the area of erythema of her left bethea is chronic and followed by Dermatology. Traumatic rhabdomyolysis, subsequent encounter Morbid obesity (H)-poor endurance. Some wheezing noted with movement. No cough or shortness of breath. 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 INR 2.6 today. Usual dose is 10 mg MWF, 7.5 mg the other days of the week. CEFERINO (obstructive sleep apnea)-uses CPAP Essential hypertension, benign-BPs: 133/69, 108/67 HR: 92-95 Diarrhea, unspecified type-has had several episodes of explosive diarrhea since admission last evening. Incontinent. Denies cramping or abdominal pain. No vomiting. Physical deconditioning-requires max assist of 2-3 with turning and repositioning. CODE STATUS/ADVANCE DIRECTIVES DISCUSSION: CPR/Full code Patient's living condition: lives alone ALLERGIES:Cephalexin; Lanolin; Lisinopril; Neomycin; Penicillins; and Bactroban [mupirocin calcium] PAST MEDICAL HISTORY: has a past medical history of BENIGN HYPERTENSION (07/30/2003); benign positional vertigo (09/08/2004); Coagulation disorder (H); GERD (gastroesophageal reflux disease); CEFERINO (obstructive sleep apnea); Other lymphedema (11/04/2003); and PULM EMBOLISM/INFARCT NOS (11/20/2001). She also has no past medical history of Chronic infection. PAST SURGICAL HISTORY: has a past surgical history that includes cholecystectomy, open (1969); tonsillectomy & adenoidectomy; and Colonoscopy (N/A, 01/13/2015). FAMILY HISTORY: family history includes Breast Cancer in her paternal aunt; C.A.D. in her paternal grandmother; CEREBROVASCULAR DISEASE in her maternal grandmother; GASTROINTESTINAL DISEASE in her brother and sister; Hypertension in her mother and sister; Prostate Cancer in her father; Skin Cancer in her father; Thyroid Disease in her mother. There is no history of DIABETES, CANCER, or Colon Cancer. SOCIAL HISTORY: reports that she has never smoked. She has never used smokeless tobacco. She reportsthat she does not drink alcohol or use illicit drugs. Post Discharge Medication Reconciliation Status: discharge medications reconciled, continue medications without change. Current Outpatient Prescriptions Medication Sig Dispense Refill ??? albuterol (2.5 MG/3ML) 0.083% neb solution Take 1 vial by nebulization every 4 hours as needed for shortness of breath / dyspnea or wheezing ??? lactobacillus rhamnosus, GG, (CULTURELL) capsule Take 1 capsule by mouth 2 times daily for 7 days 14 capsule 0 ??? omeprazole (PRILOSEC) 40 MG capsule Take 1 capsule (40 mg) by mouth every morning 30 capsule ??? desoximetasone (TOPICORT) 0.05 % GEL Apply topically 2 times daily as needed for inflammation oritching ??? hydrocortisone 2.5 % ointment Daily as needed 180 g 3 ??? atenolol (TENORMIN) 25 MG tablet Take 1 tablet (25 mg) by mouth 2 times daily 180 tablet 3 ??? losartan (COZAAR) 100 MG tablet Take 1 tablet (100 mg) by mouth daily 90 tablet 3 ??? Cholecalciferol (VITAMIN D PO) Take 10,000 Units by mouth daily ??? cetirizine (ZYRTEC) 10 MG tablet Take 10 mg by mouth 2 times daily ??? acetaminophen (TYLENOL) 325 MG tablet Take 325 mg by mouth daily ??? warfarin (COUMADIN) 10 MG tablet Take 10mg MWF or as directed by INR clinic. 40 tablet 1 ??? warfarin (COUMADIN) 7.5 MG tablet Take 7.5mg (1 tablet) on TTSS (take 10mg tabs on MWF) or as directed by INR Clinic. 50 tablet 1 ROS: 10 point ROS of systems including Constitutional, Eyes, Respiratory, Cardiovascular, Gastroenterology, Genitourinary, Integumentary, Muscularskeletal, Psychiatric were all negative except for pertinentpositives noted in my HPI. Exam: BP 133/69 Pulse 95 Temp 99.2 ??F (37.3 ??C) Resp 18 Ht 5' 6 (1.676 m) Wt (!) 427 lb 12.8 oz (194 kg) SpO2 93% BMI 69.05 kg/m2 GENERAL APPEARANCE: Alert, in no distress, morbidly obese ENT: Mouth and posterior oropharynx normal, moist mucous membranes, normal hearing acuity EYES: EOM normal, conjunctiva and lids normal, PERRL NECK: No adenopathy,masses or thyromegaly RESP: respiratory effort and palpation of chest normal, lungs clear to auscultation , no respiratorydistress CV: Palpation and auscultation of heart done , regular rate and rhythm, no murmur, +2 pedal pulses, peripheral edema 2+ in both LE ABDOMEN: soft, non-tender, no distension, no masses M/S: in bed. LOPEZ with mild LE weakness. No joint inflammation SKIN: Edema of labia. Large pressure ulcer left buttock, klever area and hip with thin layer of necrotic tissue partially covering the wound, surrounding deep tissue injury. Dry, patchy area of erythema left bethea, skin intact. Pressure area with discoloration and deep tissue injury right hip. Large fluid filled blister plantar surface left foot, skin intact PSYCH: oriented X 3, normal insight, judgement and memory, affect and mood normal Lab/Diagnostic data: Last Basic Metabolic Panel: Lab Results Component Value Date NA 138 10/23/2017 Lab Results Component Value Date POTASSIUM 3.6 10/24/2017 Lab Results Component Value Date CHLORIDE 106 10/23/2017 Lab Results Component Value Date TOMA 7.5 10/23/2017 Lab Results Component Value Date CO2 26 10/23/2017 Lab Results Component Value Date BUN 13 10/23/2017 Lab Results Component Value Date CR 0.43 10/25/2017 Lab Results Component Value Date GLC 108 10/23/2017 Lab Results Component Value Date WBC 13.1 10/22/2017 Lab Results Component Value Date RBC 3.87 10/20/2017 Lab Results Component Value Date HGB 12.2 10/20/2017 Lab Results Component Value Date HCT 35.5 10/20/2017 Lab Results Component Value Date MCV 92 10/20/2017 Lab Results Component Value Date MCH 31.5 10/20/2017 Lab Results Component Value Date MCHC 34.4 10/20/2017 Lab Results Component Value Date RDW 13.5 10/20/2017 Lab Results Component Value Date PLT 179 10/20/2017 ASSESSMENT / PLAN: (L89.45) Pressure ulcer of contiguous region involving left buttock and hip, unstageable (H) (primary encounter diagnosis) (L03.116) Cellulitis of left lower extremity (I89.0) Lymphedema of both lower extremities (T79.6XXD) Traumatic rhabdomyolysis, subsequent encounter Comment: multiple areas of deep tissue injury and pressure ulcers. No signs of infection. Minimal pain. Plan: continue clindamycin for 3 days. Wound care per instructions from inpatient [facility] nurse. Pressure reducing mattress. Maintain fu catheter to promote wound healing. Therapies for lymphedema management. Refer to onsite Wound MD. CBC, BMP. (E66.01) Morbid obesity (H) Comment: affecting wound healing, respiratory status and mobility. Plan: lion hunter to consult for wound healing. Albuterol neb prn wheezing. Closely monitor respiratory status. (!26.99) PE and infarction Comment: chronic anticoagulation. INR therapeutic Plan: coumadin 10 mg MWF, 7.5 mg the other days of the week. INR 10/30/2017 (G47.33) CEFERINO (obstructive sleep apnea) Comment: compliant with CPAP Plan: continue at usual home settings (I10) Essential hypertension, benign Comment: controlled Plan: continue atenolol, losartan. (R19.7) Diarrhea, unspecified type Comment: acute, multiple loose stools today Plan: obtain specimen for C diff (R53.81) Physical deconditioning Comment: very deconditioned due to injuries, hospitalization,comorbidities Plan: PHYSICAL THERAPY/OT. Anticipate prolonged rehab course and possible need for [facility]p care for a period of time for wound care. Electronically signed by: Catalino Carballo APRN CNP documented in this encounter Plan of Treatment Upcoming Encounters Date Type Specialty Care Team Description 11/15/2022 Virtual Visit Haylie Wakefield, [facility] [address] [facility] [place] [address] (Wo rk) 11/15/2022 Virtual Visit IM/Peds Yane Barraza MD [address] [place] [address] (Wo rk) 03/03/2023 Virtual Visit Neurology Erlinda Barber MD [address] [facility] [address] [place] [address] (Lena max) documented as of this encounter Visit Diagnoses Diagnosis Pressure ulcer of contiguous region invo lving left buttock and hip, unstageable (H) - Primary Cellulitis of left lower extremity Cellulitis and abscess of leg, except fo ot Lymphedema of both lower extremities Traumatic rhabdomyolysis, subsequent enc ounter Morbid obesity (H) Morbid obesity Pulmonary embolism and infarction (H) CEFERINO (obstructive sleep apnea) Obstructive sleep apnea (adult) (pediatr ic) Essential hypertension, benign Diarrhea, unspecified type Physical deconditioning Debility, unspecified documented in this encounter Care Teams Outdoor Guide Relationship Specialty Start Date End Date Lucero Stevenson PCP - General Pediatrics 10/11/11 04/22/19 MD Annetta Chastity Montero MD Dermatology 09/23/14 [address] [facility] [address] [place], [place] [address] Johnnie Alcocer MD Surgeon General Surgery 03/23/[address] [place], [place] [phone] sFannie, RN Clinic Field Mechanic/Site Lead Primary Care - CC 10/26/17 11/14/17 documented as of this encounter
--- OUTSIDE RECORDS SUMMARY | 2022-06-15 13:14 | XMS_ITS | Encounter Summary ---
:1945 Author Organization [facility] Address [facility] [place] [address] Care Team Providers Name Role Phone Lucero Stevenson MD Primary Care Provider [phone] Chastity Montero MD Unavailable [phone] Johnnie Alcocer MD Unavailable sFannie RN Unavailable Reason for Visit Reason Onset Date Comments Ulcer 10/28/2017 Encounter Details Date Type Department Care Team Description 10/28/2017 [facility] Geriatric RuedaMor S, SUPERINTENDENT CUSTODIAN JANITOR Ulcer Transitional Care [facility] [address] [address] [place] [address] (Wo rk) Social History Tobacco Use Types [...] this encounter Miscellaneous Notes Telephone Encounter - Alysa Rueda APRN CNP - 10/28/2017 1:12 PM CDT Patient with a very large unstageable pressure ulcer on buttock extending to rectum, also c diff andnon stop stools. Ulcer now opened up and drainage coming from patient's rectum is copious and green/foul smelling, staff do not believe it is stool. They are unable to place rectal tube and unable to contain drainage, asking for ED eval at this time due to change in wound and drainage. Gave OK to send to hospital of origin for eval Electronically signed by Alysa Barrera. MIGEL Rueda, GNIrene documented in this encounter Plan of Treatment Upcoming Encounters Date Type Specialty Care Team Description 11/15/2022 Virtual Visit Pharm D Haylie Cheung K sunday Rojas, [facility] [address] [facility] [place] [phone] (Wo rk) 11/15/2022 Virtual Visit IM/Peds Yane Barraza MD [address] [facility] [place] [phone] (Wo rk) 03/03/2023 Virtual Visit Neurology Erlinda Barber MD 420 [facility] 295 [place], [place] [phone] (Wo rk) documented as of this encounter Visit Diagnoses Not on filedocumented in this encounter Care Teams Road Engineer Relationship Specialty Start Date End Date Lucero Stevenson PCP - General Pediatrics 10/11/11 04/22/19 MD Annetta Chastity Montero MD Dermatology 09/23/14 420 [facility] 98 [place] [address] Johnnie Alcocer MD Surgeon General Surgery 03/23/17 [address] [facility] [address] [place], [place] [address] Fannie Coleman RN Clinic Hybrid Tester Primary Care - CC 10/26/17 11/14/17 documented as of this encounter
--- OUTSIDE RECORDS SUMMARY | 2022-06-15 13:14 | XMS_ITS | Encounter Summary ---
:1945 Author Organization [facility] Address [address] [place] [id number] Care Team Providers Name Role Phone Lucero Stevenson MD Primary Care Provider [phone] Chastity Montero MD Unavailable [phone] Johnnie Alcocer MD Unavailable Janie Petersen RN Unavailable Unavailable Janie Petersen RN Unavailable Unavailable Lucero Stevenson MD Unavailable [phone] Catalino Carballo AIRPLANE COVER MAKER ASSURANCE ASSISTANT Unavailable [phone] Lucero Stevenson MD Unavailable [phone] Danni Marcus RN Unavailable Unavailable Kana Doshi WAXING MACHINE OPERATOR Unavailable Mtm, Ea Complex Unavailable Unavailable Svetlana Osman [facility] Unavailable [phone] Doris Lai MD Primary Care Provider Haylie Cheung [facility] Unavailable [phone] Galdino Valdez MD Unavailable Galdino Valdez MD Primary Care Provider Jaiden Holcomb MD Primary Care Provider [phone] Kendall Joseph MD Unavailable Erlinda Barber MD Unavailable Jaiden Holcomb MD Unavailable Lucero Stevenson MD Primary Care Provider [phone] Doris Lai MD Primary Care Provider Encounter Details Date Type Department Care Team Description 11/20/2017 Ambulatory - [facility] R[facility] Merary Roque RN Social History Tobacco Use Types Packs/Day Years [...] Haylie Cheung, [facility] [address] [facility] [place] [address] (Lena max) 11/15/2022 Virtual Visit IM/Peds Yane Barraza MD [address] [facility] [place] [address] (Wo winter) 03/03/2023 Virtual Visit Neurology Erlinda Barber MD [address] [facility] [address] [place] [address] (Wo rk) documented as of this encounter Visit Diagnoses Not on filedocumented in this encounter Care Teams Volunteer Services Coordinator Relationship Specialty Start Date End Date Lucero Stevenson, PCP - General Pediatrics 10/11/11 Lucero Stevenson, PCP - Assigned PCP 06/17/18 09/18/18 MD TOÑO LOPEZ [address] [place], [place] [phone] Catalino Carballo, PCP - Assigned PCP 03/18/18 06/16/18 AIRPLANE COVER MAKER ASSURANCE ASSISTANT [address] [place] [address] Doris Lai MD PCP - General Internal Medicine 04/23/19 05/14/[address] [place] [address] [place] [address] Galdino Valdez MD PCP - General Family Practice 11/29/19 02/12/20 [address] [place] [address] Jaiden Holcomb PCP - General Internal Medicine 02/13/2010/03 MD Jayesh [address] [place] [address] [place] [address] Lucero Stevenson PCP - General 05/15/19 1 07/23/18 MD TOÑO LOPEZ [address] [place], [place] [phone] Doris Lai MD PCP - General 05/24/19 11/28/[address] [facility] [place] [id number] Chastity Montero MD Dermatology 09/23/14 [address] [facility] [address] [place], [place] [id number] Johnnie Alcocer MD Surgeon General Surgery 03/23/[address] [place], [place] [id number] Janie Petersen, [facility] Primary [facility] - [facility] 11/17/17 01/15/18 Coordinator Janie Petersen, [facility] Primary Care - CC 05/03/18 9 Coordinator Lucero Stevenson, Assigned PCP 06/17/18 MD TOÑO LOPEZ [address] [place] [address] Danni Marcus, [facility] Personal Advocate & 01/09/1901/17 Liaison (PAL) Kana Doshi LSW Clinic [facility] Primary Care - CC 03/19/19 05/07/19 Coordinator Fernando, Ea Complex 04/23/19 Svetlana Osman, Pharmacist Pharmacotherapy 04/23/19 [facility] [address] [place] [address] Haylie Cheung, Pharmacist Pharmacist 09/11/19 [facility] [address] [place] [address] [address] [place], [place] [phone] Galdino Valdez MD Assigned PCP 11/10/19 05/23/20 [address] [place] [address] Opal, Assigned Sleep 05/08/20 03/27/21 Kendall Meehan MD Provider [address] [place], [place] [phone] Erlinda Barber MD Assigned Neuroscience 05/08/20 01/26/21 [address] [facility] [address] [place] [address] Jaiden Holcomb Assigned PCP 05/24/20 MD Jayesh [address] [place] [address] documented as of this encounter
--- OUTSIDE RECORDS SUMMARY | 2022-06-15 13:14 | XMS_ITS | Encounter Summary ---
:1945 Author Organization [place] Address [address] [facility] [place] [address] Care Team Providers Name Role Phone Lucero Stevenson MD Primary Care Provider [phone] Chastity Montero MD Unavailable [phone] Johnnie Alcocer MD Unavailable sFannie RN Unavailable Reason for Visit Reason Comments Wound Check pt from [place] on [facility], pt has been having explosive diarrhea, necrotic tissue on left lower buttock . Encounter Details Date Type Department Care Team Description 10/28/2017 [facility] Yaya Hoover Cla, MD [facility] [address] [place], [place] [id number] Necrotizing fasciitis [facility] Emergency Nadya Puckett MD [address] [facility] [address] [place] [address] (H) Dept [address] [facility] [place] [address] Social History Tobacco Use Types Packs/Day Years [...] 05/03/2021 organizations such as sabianist groups, unions, [employer] or athletic groups, or school groups? How [...] Sign Reading Time Taken Comments Blood Pressure 139/75 10/28/2017 6:30 PM CDT Pulse 94 10/28/2017 2:56 PM CDT Temperature 36.9 ??C (98.4 ??F) 10/28/2017 2:56 PM CDT Respiratory Rate 24 10/28/2017 6:30 PM CDT Oxygen Saturation 99% 10/28/2017 6:30 PM CDT Inhaled Oxygen Concentration - - Weight 195.7 kg (431 lb 7 oz) 10/28/2017 2:56 PM CDT Height - - Body Mass Index 69.64 10/26/2017 11:26 AM CDT documented in this encounter Medications at Time of Discharge Medication Sig Dispensed Refills Start Date End Date cetirizine (ZYRTEC) 10 Take 10 mg by mouth 0 MG tablet 2 times daily clindamycin (CLEOCIN) Take 2 capsules (600 18 capsule 0 10/1510/28/2017 300 MG mg) by mouth 3 times capsuleIndications: Skin daily for 3 days and Soft Tissue Infection lactobacillus rhamnosus, Take 1 capsule by 14 capsule 0 10/1511/01/2017 GG, (CULTURELL) mouth 2 times daily capsuleIndications: for 7 days Cellulitis of left lower extremity acetaminophen (TYLENOL) Take 325 mg by mouth 0 03/17/2019 325 MG tablet daily as needed albuterol (2.5 MG/3ML) Take 1 vial by 0 05/30/2018 0.083% neb solution nebulization every 4 hours as needed for shortness of breath / dyspnea or wheezing atenolol (TENORMIN) 25 Take 1 tablet (25 180 tablet 3 201604/26/2018 MG tabletIndications: mg) by mouth 2 times Essential hypertension, daily benign Cholecalciferol (VITAMIN Take 5,000 Units by 0 10/04/2021 D PO) mouth daily desoximetasone Apply topically 2 0 (TOPICORT) 0.05 % GEL times daily as needed for inflammation or itching hydrocortisone 2.5 % Daily as needed 180 g 3 03/27/2017 05/14/2019 ointmentIndications: Dermatitis losartan (COZAAR) 100 MG Take 1 tablet (100 90 tablet 3 05/30/2018 tabletIndications: mg) by mouth daily Essential hypertension, benign omeprazole (PRILOSEC) 40 Take 1 capsule (40 30 capsule 0 05/201808/01/2018 MG capsuleIndications: mg) by mouth every Gastroesophageal reflux morning disease without esophagitis warfarin (COUMADIN) 10 Take 10mg MWF or as 40 tablet 1 01/201804/26/2018 MG tabletIndications: directed by INR 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 designer current use of clinic. anticoagulant therapy warfarin (COUMADIN) 7.5 Take 7.5mg (1 50 tablet 1 7 05/07/2018 MG tabletIndications: tablet) on TTSS longterm current use of (take 10mg tabs on anticoagulant therapy MWF) or as directed by INR Clinic. documented as of this encounter ED Notes Sha Grimm RN - 10/28/2017 6:24 PM CDT Report called to [facility] CHANDLER Kilpatrick. Eliza Smith RN - 10/28/2017 4:50 PM CDT [facility] ED Nurse Handoff Report ED Chief complaint: Wound Check (pt from [place] [address], pt has been having explosive diarrhea, necrotic tissue on left lower buttock. ) ED Diagnosis: Final diagnoses: None Code Status: Full Code Allergies: Allergies Allergen Reactions ??? Cephalexin Hives Keflex - hives ??? Lanolin Other (See Comments) skin irritation ??? Lisinopril Cough ??? Neomycin Other (See Comments) skin irritation ??? Penicillins Hives ??? 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 The patient reportedly fell while at home, lying on the floor for 3 days. She was admitted to [facility] on 10/18/17. The patient was discharged on October 25, 2017 for left lower extremity cellulitis, rhabdomyolysis, and multiple skin ulcerations. She finished her round of Clindamycin on October 27, 2017. Since discharge from [facility], she has been in transitional care at [facility]. Since the fall, her wounds have progressed and have been frequently. The nursing staff there noticed explosive diarrhea and unstable ulcer in the left thigh/buttock region with new green discharge and sent her here to the emergency department. Left upper thigh has large blackened pressure sore with oozing, small new opening area towards top. Left foot has closed blister to ball of foot. Ptreports no pain from these wounds. She reports that she normally is living alone in her townhome without difficulty. A&O. Scanlon in place upon arrival, after pt cleaned up rectal seal tube placed inED. Tests Performed: labs, CT, cultures Abnormal Results: Results for orders placed or performed during the hospital encounter of 10/28/17 (from the past 24 hour(s)) Tissue Culture Aerobic Bacterial Result Value Ref Range Specimen Description Other Culture Micro Canceled, Test credited REORDERED SEPARATELY CBC with platelets differential Result Value Ref Range WBC 12.8 (H) 4.0 - 11.0 10e9/L RBC Count 3.78 (L) 3.8 - 5.2 10e12/L Hemoglobin 12.0 11.7 - 15.7 g/dL Hematocrit 35.0 35.0 - 47.0 % MCV 93 78 - 100 fl MCH 31.7 26.5 - 33.0 pg MCHC 34.3 31.5 - 36.5 g/dL RDW 13.9 10.0 - 15.0 % Platelet Count 376 150 - 450 10e9/L Diff Method Automated Method % Neutrophils 83.4 % % Lymphocytes 8.1 % % Monocytes 5.7 % % Eosinophils 1.8 % % Basophils 0.2 % % Immature Granulocytes 0.8 % Nucleated RBCs 0 0 /100 Absolute Neutrophil 10.7 (H) 1.6 - 8.3 10e9/L Absolute Lymphocytes 1.0 0.8 - 5.3 10e9/L Absolute Monocytes 0.7 0.0 - 1.3 10e9/L Absolute Eosinophils 0.2 0.0 - 0.7 10e9/L Absolute Basophils 0.0 0.0 - 0.2 10e9/L Abs Immature Granulocytes 0.1 0 - 0.4 10e9/L Absolute Nucleated RBC 0.0 INR Result Value Ref Range INR 1.96 (H) 0.86 - 1.14 Partial thromboplastin time Result Value Ref Range PTT 46 (H) 22 - 37 sec Comprehensive metabolic panel Result Value Ref Range Sodium 138 133 - 144 mmol/L Potassium 3.8 3.4 - 5.3 mmol/L Chloride 104 94 - 109 mmol/L Carbon Dioxide 28 20 - 32 mmol/L Anion Gap 6 3 - 14 mmol/L Glucose 122 (H) 70 - 99 mg/dL Urea Nitrogen 14 7 - 30 mg/dL Creatinine 0.48 (L) 0.52 - 1.04 mg/dL GFR Estimate >90 >60 mL/min/1.7m2 GFR Estimate If Black >90 >60 mL/min/1.7m2 Calcium 7.8 (L) 8.5 - 10.1 mg/dL Bilirubin Total 0.6 0.2 - 1.3 mg/dL Albumin 1.6 (L) 3.4 - 5.0 g/dL Protein Total 6.4 (L) 6.8 - 8.8 g/dL Alkaline Phosphatase 82 40 - 150 U/L ALT 65 (H) 0 - 50 U/L AST 66 (H) 0 - 45 U/L Lactic acid whole blood Result Value Ref Range Lactic Acid 1.7 0.7 - 2.0 mmol/L CRP inflammation Result Value Ref Range CRP Inflammation 137.0 (H) 0.0 - 8.0 mg/L Erythrocyte sedimentation rate auto Result Value Ref Range Sed Rate 66 (H) 0 - 30 mm/h Phosphorus Result Value Ref Range Phosphorus 2.5 2.5 - 4.5 mg/dL Magnesium Result Value Ref Range Magnesium 1.8 1.6 - 2.3 mg/dL CK total Result Value Ref Range CK Total 62 30 - 225 U/L CT Pelvis w Contrast Narrative CT PELVIS W CONTRAST 10/28/2017 4:28 PM HISTORY: Soft tissue wound, possible abscess. TECHNIQUE: CT of the pelvis is performed with 135 mL Isovue-370 intravenously. Radiation dose for this scan was reduced using automated exposure control, adjustment of the mA and/or kV according to patient size, or iterative reconstruction technique. COMPARISON: None. FINDINGS: There is subcutaneous emphysema within the left medial gluteal region, with diffuse subcutaneous anasarca and inflammatory changes throughout the visualized pelvis. No definite abscess is appreciated. Mildly prominent bilateral inguinal lymph nodes. Impression IMPRESSION: 1. Subcutaneous emphysema in the left medial gluteal region with surrounding inflammatory changes. Findings are concerning for necrotizing fasciitis. Recommend clinical correlation. 2. No evidence of abscess appreciated. PIPO SHINE MD EKG 12-lead, tracing only Result Value Ref Range Interpretation ECG Click View Image link to view waveform and result Treatments provided: vanco, bolus, merrem Family Comments: self / daughter on way OBS brochure/video discussed/provided to patient: N/A ED Medications: Medications meropenem (MERREM) 1 g vial to attach to NS 100 mL bag (1 g Intravenous New Bag 10/28/17 1647) vancomycin (VANCOCIN) 2,500 mg in sodium chloride 0.9 % 500 mL intermittent infusion (not administered) 0.9% sodium chloride BOLUS (not administered) 100mL saline flush (80 mLs Intravenous Given 10/28/17 162) iopamidol (ISOVUE-370) solution 135 mL (135 mLs Intravenous Given 10/28/17 162) Drips infusing?: No For the majority of the shift this patient was Green. Interventions performed were xx. Severe Sepsis OR Septic Shock Diagnosis Present: No ED NURSE PHONE NUMBER: x Mt Woodard RN - 10/28/2017 4:29 PM CDT Bed: ED05 Expected date: Expected time: Means of arrival: Comments: [email or web address] Mt Woodard RN - 10/28/2017 2:19 PM CDT Bed: ED26 Expected date: 10/28/17 Expected time: 1:47 PM Means of arrival: Ambulance Comments: [email or web address] 76F skin ulcers ETA 1400 Yaya Hoover MD - 10/28/2017 2:10 PM CDT History Chief Complaint: Wound Check HPI Charlette Brush is a 72 year old female who presents to the emergency department today for evaluationof wound check. The patient reportedly fell while at home, lying on the floor for 3 days starting on10/15/17. She was admitted to [facility] on 10/18/17 for rhabdomyolysis and had some skin breakdown at that time. The patient was discharged from from [facility] on October 25, 2017 for left lower extremity cellulitis, rhabdomyolysis, and multiple skin ulcerations to a TCU. She finished her round of Clindamycin on October 27, 2017. Since discharge from [facility], she has been in transitional care at [facility]. Since the fall, her wounds [...] generally weak which is significantly worse today. Allergies: Cephalexin Lanolin Lisinopril Neomycin Penicillins Bactroban [Mupirocin Calcium] Medications: albuterol (2.5 MG/3ML) 0.083% neb solution lactobacillus rhamnosus, GG, (CULTURELL) capsule clindamycin (CLEOCIN) 300 MG capsule omeprazole (PRILOSEC) 40 MG capsule desoximetasone (TOPICORT) 0.05 % GEL warfarin (COUMADIN) 10 MG tablet warfarin (COUMADIN) 7.5 MG tablet hydrocortisone 2.5 % ointment atenolol (TENORMIN) 25 MG tablet losartan (COZAAR) 100 MG tablet Cholecalciferol (VITAMIN D PO) cetirizine (ZYRTEC) 10 MG tablet acetaminophen (TYLENOL) 325 MG tablet Past Medical History: Hypertension Coagulation disorder GERD CEFERINO Morbid Obesity Past Surgical History: Cholecystectomy Family History: Hypertension Mother Thyroid Disease Mother Prostate Cancer Father Skin Cancer Father C.A.D. Paternal Grandmother Hypertension Sister CVD Maternal Grandmother Breast Cancer Paternal Aunt Irritable bowel Brother Ciliac disease Sister Social History: The patient was accompanied to the ED by EMS. Smoking Status: Never Smoker Smokeless Tobacco: Never Used Alcohol Use: Negative Marital Status: Single Review of Systems Gastrointestinal: Positive for diarrhea. Skin: Positive for wound (see exam). All other systems reviewed and are negative. Physical Exam Patient Vitals for the past 24 hrs: BP Temp Temp src Pulse Heart Rate Resp SpO2 Weight 10/28/17 1758 - - - - 93 25 100 % - 10/28/17 1703 153/84 - - - 96 - 97 % - 10/28/17 1655 137/80 - - - 98 - 97 % - 10/28/17 1456 123/72 98.4 ??F (36.9 ??C) Oral 94 - 20 98 % (!) 195.7 kg (431 lb 7 oz) Physical Exam General: General pallor. Awake and alert. Head: Scalp, face, and head appear normal Eyes: Pupils are equal, round, and reactive to light Conjunctivae non-injected and sclerae white ENT: The external nose is normal Pinnae are normal The oropharynx is normal, mucous membranes moist Uvula is in the midline Neck: Normal range of motion There is no rigidity noted Trachea is in the midline CV: Regular rate and rhythm. Heart sounds distant. Normal S1/S2, no S3/S4 No murmur or rub Resp: Lungs are equal bilaterally. Breath sounds distant 2/2 body habitus. There is no tachypnea No increased work of breathing No rales, wheezing, or rhonchi GI: Abdomen is super-morbid obese, soft, no rigidity or guarding No tenderness or rebound tenderness MS: Normal muscular tone Symmetric motor strength No lower extremity edema Skin: 20 x 9 cm full-thickness pressure ulcer at the base of the left buttock and upper thigh extending medially to the left lateral side of the anus and up towards the vulva. The largest portion of this is covered by thick a sensate black eschar. At the medial aspect of the wound there is foul-smelling purulence and gas being expelled from the wound margin. The wound is grossly contaminated with stool. There is significant surrounding erythema and induration between the medial thighs adjacent to the vulva on the left. On the right superior lateral buttock are 2 linear pressure ulcers stage II-III the first measures 12 x 6 cm the second measures 12 x 3 cm. no surrounding erythema or purulence. There are additional areas of stage II-III skin breakdown at the superior aspect of the gluteal cleft overlying the sacral prominence. Neuro: Awake and alert Speech is normal and fluent Moves all extremities spontaneously Psych: Normal affect. Appropriate interactions. Emergency Department Course ECG: ECG taken at 1631, ECG read at 1640 A-Fib Nonspecific ST abnormality Abnormal ECG Rate 93 bpm. DE interval * ms. QRS duration 92 ms. QT/QTc 340/422 ms. P-R-T axes * 67 47. Imaging: Radiology findings were communicated with the patient who voiced understanding of the findings. CT Pelvis w Contrast 1. Subcutaneous emphysema in the left medial gluteal region with surrounding inflammatory changes. Findings are concerning for necrotizing fasciitis. Recommend clinical correlation. 2. No evidence of abscess appreciated. Reading per radiology Laboratory: Laboratory findings were communicated with the patient who voiced understanding of the findings. Blood culture: Pending CBC: WBC 12.8, HGB 12.0, PLT 376 CMP: Glucose: 122, Creatinine: 0.48, Calcium: 7.8, Albumin: 1.6, Protein Total: 6.4, ALT: 65, AST: 66 INR (1515): 1.96 Partial thromboplastin time (1515): 46 Lactic Acid whole blood (1515): 1.7 CRP inflammation: 137.0 Erythrocyte sedimentation rate auto: 66 Blood culture: pending Phosphorus (1515): 2.5 CK total (1515): 62 Troponin I (1515): <0.015 Interventions: 1647 Merrem 1 g IV 1654 NS, 500 mL, IV 1739 Vancomycin 2500 mg IV Emergency Department Course: 1421 Nursing notes and vitals reviewed. 1423 I performed an exam of the patient as documented above. 1438 The patient was sent for a left femur and pelvis CT while in the emergency department, results above. 1517 IV was inserted and blood was drawn for laboratory testing, results above. [address] Puckett of the General Surgery service from [facility] regarding patient's presentation, findings, and plan of care. She recommended transfer to [facility]. 1830 I personally reviewed the lab and imaging results with the patient and answered all related questions prior to transfer. Impression & Plan Medical Decision Making: Charlette Brush is a 72 year old female who presents for evaluation of a wound after discharge to [facility] transitional care unit after admission to [facility] due to being stuck on the ground for 3 days and developing left lower extremity cellulitis, rhabdomyolysis, and multiple skin ulcerations. She appears unwell, generally pale but is afebrile with normal hemodynamics. The ulcer tothe left lower buttock and upper thighs the most severe with overlying eschar and amie foul-smelling purulence and air easily expressible from the wound there is surrounding erythema and skin induration extending up towards the rectum as well as the vulvar area concerning for Vipul's gangrene or ne crotizing fasciitis. Given the appearance of the skin in this area, I am very concerned about a necrotizing soft tissue infection. CT scan was obtained and showed extensive subcutaneous emphysema. Broad-spectrum IV antibiotics started, see above. The differential includes necrotizing fascitis, abscess, myositis, etc. given the fact that the patient is afebrile with normal lactic acid she does not meet criteria for sepsis at this time. A tissue sample was taken from the left medial buttock wound as well as a swab of the purulent drainage and sent to the lab for culture. Blood cultures were obtained.Early broad-spectrum antibiotics were started given the CT findings I discussed the case with general surgery here Dr. Nadya Puckett who felt that the infection was too expensive extensive to be treated here at [facility] and that she should be transferred to place that has availability of hyperbaricoxygen and recommended [facility]. Given this I spoke with Dr. Arana at each [facility] who accepted the patient for transfer with plan for surgical consultation and possible hyperbaric treatment. The patient's family and patient was updated and was agreeable to transfer. Patient remained stable during her entire EDcourse and was transferred in stable condition. Diagnosis: ICD-10-CM 1. Necrotizing fasciitis (H) M72.6 Disposition: Transfer to [facility] Scribe Disclosure: Dustin Spencer, am serving as a scribe at 2:47 PM on 10/28/2017 to document services personally performed by Yaya Hoover MD based on my observations and the provider's statements to me. EMERGENCY DEPARTMENT Yaya Hoover MD 10/28/172133 documented in this encounter Plan of Treatment Upcoming Encounters Date Type Specialty Care Team Description 11/15/2022 Virtual Visit Pharm Haylie Gonzalez, [facility] [address] [facility] [place] [phone] (Wo rk) 11/15/2022 Virtual Visit [place] [address] [place] [address] [place] [phone] (Wo rk) 03/03/2023 Virtual Visit Neurology Erlinda Barber MD [address] [facility] [address] [place], [place] [phone] (Wo rk) documented as of this encounter Procedures Procedure Name Priority Date/Time Associated Comments Diagnosis ABO/RH TYPE AND SCREEN STAT 10/28/2017 5:39 Necrotizing Re sults for this PM CDT fasciitis (H) procedure are in the results section. EKG 12-LEAD, TRACING STAT 10/28/2017 4:31 Resu lts for this ONLY PM CDT procedure are i n the results section. CT PELVIS BONE W STAT 10/28/2017 4:28 Results for this CONTRAST PM CDT procedure are i n the results section. BLOOD CULTURE STAT 10/28/2017 3:23 Necrotizing Results for this PM CDT fasciitis (H) procedure are in the results section. CBC WITH PLATELETS & STAT 10/28/2017 3:15 Resu lts for this DIFFERENTIAL PM CDT procedure are i n the results section. TROPONIN I Routine 10/28/2017 3:15 Results for this PM CDT procedure are i n the results section. INR STAT 10/28/2017 3:15 Results for this PM CDT procedure are i n the results section. PHOSPHORUS STAT 10/28/2017 3:15 Results for this PM CDT procedure are i n the results section. PARTIAL THROMBOPLASTIN STAT 10/28/2017 3:15 Re sults for this TIME PM CDT procedure are i n the results section. MAGNESIUM STAT 10/28/2017 3:15 Results for this PM CDT procedure are i n the results section. LACTIC ACID WHOLE BLOOD STAT 10/28/2017 3:15 R esults for this PM CDT procedure are i n the results section. ERYTHROCYTE STAT 10/28/2017 3:15 Results for this SEDIMENTATION RATE AUTO PM CDT proc edure are in the results section. CRP INFLAMMATION STAT 10/28/2017 3:15 Results for this PM CDT procedure are i n the results section. COMPREHENSIVE METABOLIC STAT 10/28/2017 3:15 R esults for this PANEL PM CDT procedure are i n the results section. CK TOTAL STAT 10/28/2017 3:15 Results for this PM CDT procedure are i n the results section. BLOOD CULTURE STAT 10/28/2017 3:15 Necrotizing Results for this PM CDT fasciitis (H) procedure are in the results section. CLOSTRIDIUM DIFFICILE Routine 10/28/2017 2:49 Necrotizing Res ults for this TOXIN B PM CDT fasciitis (H) procedure are in the results section. TISSUE CULTURE AEROBIC STAT 10/28/2017 2:25 Necrotizing Re sults for this BACTERIAL PM CDT fasciitis (H) procedure are in the results section. TISSUE CULTURE AEROBIC STAT 10/28/2017 2:25 Re sults for this BACTERIAL PM CDT procedure are i n the results section. ABSCESS CULTURE AEROBIC STAT 10/28/2017 2:25 Necrotizing R esults for this BACTERIAL PM CDT fasciitis (H) procedure are in the results section. documented in this encounter Results ABO/Rh type and screen (10/28/2017 5:39 PM CDT) [facility] Method Time Signature ABO B 10/28/2017 [place] 6:29 PM CDT [facility] RH(D) Pos [facility] Antibody Neg 10/28/2017 [place] Screen 6:29 PM CDT [facility] Test Valid [place] 10/28/2017 [place] Only At [facility] 5:53 PM CDT [facility] HOSPITAL Specimen 10/31/2017 10/28/2017 [place] Expires 5:53 PM CDT [facility] Specimen Anatomical Collection Method Collection Time Receive d Time (Source) Location / / Volume Laterality Blood specimen 10/28/2017 5:39 PM 018 5:50 (specimen) CDT PM CDT Yaya Hoover MD LAB - BLOOD BANK TEST ORDER Performing Organization Address City/State/ZIP Code Phon e Number [facility] [address] [place] [address] [facility] [address] [place] [address], [place] [phone] EKG 12-lead, tracing only (10/28/2017 4:31 PM CDT) [facility] gist Method Time Signature Interpretation ECG Click View RADIOLOGY Image link RESULTS to view waveform and result Specimen (Source) Anatomical Collection Method Collection Time Re ceived Time Location / / Volume Laterality 10/28/2017 4:31 PM CDT Yaya Hoover MD ECG ORDERABLES Performing Organization Address City/State/ZIP Code Phon e Number RADIOLOGY RESULTS CT Pelvis w Contrast (10/28/2017 4:28 PM CDT) Anatomical Region Laterality Modality Abdomen/Pelvis, SUBRAD CT BODY, UMP CT ABDOMEN PELVIS, Computed Tomography RAD CT Specimen (Source) Anatomical Location Collection Method / Collectio n Time Received Time / Laterality Volume Impressions 10/28/2017 4:34 PM CDT IMPRESSION: 1. Subcutaneous emphysema in the left me dial gluteal region with surrounding inflammatory changes. Findin gs are concerning for necrotizing fasciitis. Recommend clinica l correlation. 2. No evidence of abscess appreciated. PIPO SHINE MD Narrative 10/28/2017 4:[address] PELVIS W CONTRAST 10/28/2017 4:28 PM HISTORY: Soft tissue wound, possible abs cess. TECHNIQUE: CT of the pelvis is performed with 135 mL Isovue-370 intravenously. Radiation dose for this s can was reduced using automated exposure control, adjustment o f the mA and/or kV according to patient size, or iterative reconstruc tion technique. COMPARISON: None. FINDINGS: There is subcutaneous emphysema within t he left medial gluteal region, with diffuse subcutaneous anasarca and i nflammatory changes throughout the visualized pelvis. No definite abscess is appreciated. Mildly prominent bilateral inguinal lymp h nodes. Procedure Note Pipo Shine MD - 10/28/2017 CT PELVIS W CONTRAST 10/28/2017 4:28 PM HISTORY: Soft tissue wound, possible abs cess. TECHNIQUE: CT of the pelvis is performed with 135 mL Isovue-370 intravenously. Radiation dose for this s can was reduced using automated exposure control, adjustment o f the mA and/or kV according to patient size, or iterative reconstruc tion technique. COMPARISON: None. FINDINGS: There is subcutaneous emphysema within t he left medial gluteal region, with diffuse subcutaneous anasarca and i nflammatory changes throughout the visualized pelvis. No definite abscess is appreciated. Mildly prominent bilateral inguinal lymp h nodes. IMPRESSION: 1. Subcutaneous emphysema in the left me dial gluteal region with surrounding inflammatory changes. Findin gs are concerning for necrotizing fasciitis. Recommend clinica l correlation. 2. No evidence of abscess appreciated. PIPO SHINE MD Yaya Hoover MD IMG CT ORDERABLES (ABNORMAL) Blood culture (10/28/2017 3:23 PM CDT) Component Value Ref Test Analysis Performed At [facility] Range Method Time Signature Specimen Blood Left Arm INFECTIOUS Description DISEASE DIAGNOSTIC LABORATORY Special Aerobic and 10/28/2017 [place] Requests anaerobic bottles 4:31 PM CDT [facility] HOSPITAL Culture Micro Cultured on the 1st day of incubation: 10/30/2017 INFECTIOUS Staphylococcus epidermidis 10:03 PM DIS EASE (A) CDT DIAGNOSTIC LABORATORY Culture Micro Critical Value/Significant V alue, preliminary result only, called to and read back by 10/30/2017 INFECTIOUS Nissa Carreon RN/[facility] ICU at 1806 on 10/29/17. EH. 10:03 PM DISEASE CDT DIAGNOSTIC LABORATORY Culture Micro (Note) 10/30/2017 INFECTIOUS POSITIVE for STAPHYLOCOCCUS EPIDERMIDIS and POSITIVE for t he mecA 10:03 PM DISEASE gene (resistant to methicillin) by BitAnimate multiplex nucl eic acid CDT DIAGNOSTIC test. Final identification and antimicrobial susceptibilit y testing LABORATORY will be verified by standard methods. Specimen tested with Verigene multiplex, gram-positive blood culture nucleic acid test for the following targets: Staph aureus, S taph epidermidis, Staph lugdunensis, other Staph species, Enteroc occus faecalis, Enterococcus faecium, Streptococcus species, S. ag alactiae, S. anginosus grp., S. pneumoniae, S. pyogenes, Listeria sp., mecA (methicillin resistance) and Lyle/B (vancomycin resistance). Critical Value/Significant Value called to and read back by Shaista Traore RN [id number] 10/30/17. MS Specimen Anatomical Collection Method Collection Time Receive d Time (Source) Location / / Volume Laterality Blood specimen UPPER LIMB 10/28/2017 3:23 PM 018 4:31 (specimen) STRUCTURE / CDT PM CDT Unknown Comment: Left Arm Organism Antibiotic Method Susceptibility Staphylococcus epidermidis Ciprofloxacin LOW 4 ug/ mL: Resistant Staphylococcus epidermidis Clindamycin LOW >=8 u g/mL: Resistant Staphylococcus epidermidis Erythromycin LOW >=8 u g/mL: Resistant Staphylococcus epidermidis Gentamicin LOW 4 ug/ mL: Susceptible Staphylococcus epidermidis Levofloxacin LOW >=8 u g/mL: Resistant Staphylococcus epidermidis Oxacillin LWO >=4 u g/mL: Resistant Staphylococcus epidermidis Penicillin LOW >=0.5 ug/mL: Resistant Staphylococcus epidermidis Tetracycline LOW 2 ug/ mL: Susceptible Staphylococcus epidermidis Vancomycin LOW 1 ug/ mL: Susceptible Yaya Hoover MD LAB - MICRO GENERAL ORDERABL ES Performing Organization Address City/State/ZIP Code Phon e Number INFECTIOUS DISEASES [address] [place] [address] DIAGNOSTIC LABORATORY, [facility] INFECTIOUS DISEASE [address] [place] [address], [facility] DIAGNOSTIC LABORATORY [address] [place], [place] [address] Troponin I (10/28/2017 3:15 PM CDT) athologist Signature Troponin I ES <0.015 0.000 - 10/28/2017 [place] 0.045 ug/L 5:27 PM CDT [facility] Comment: The 99th percentile for upper reference range is 0.045 ug/L. ??Troponin values in the range of 0.045 - 0.120 ug/L may b e associated with risks of adverse clinical events. Specimen Anatomical Collection Method Collection Time Receive d Time (Source) Location / / Volume Laterality 10/28/2017 3:15 PM 8 3:24 CDT PM CDT Yaya Hoover MD LAB - BLOOD ORDERABLES Performing Organization Address City/State/ZIP Code Phon e Number [facility] [address] [place] [address] [phone] [facility] [address] [place] [address], [place] [phone] CK total (10/28/2017 3:15 PM CDT) P athologist Signature CK Total 62 30 - 225 10/28/2017 [place] U/L 3:50 PM CDT [facility] Specimen Anatomical Collection Method Collection Time Receive d Time (Source) Location / / Volume Laterality Blood specimen 10/28/2017 3:15 PM 018 3:24 (specimen) CDT PM CDT Yaya Hoover MD LAB - BLOOD ORDERABLES Performing Organization Address City/State/ZIP Code Phon e Number [facility] [address] [place] [address] [phone] [facility] [address] [place] [address], [place] [phone] Magnesium (10/28/2017 3:15 PM CDT) P athologist Signature Magnesium 1.8 1.6 - 2.3 10/28/2017 [place] mg/dL 3:47 PM CDT [facility] Specimen Anatomical Collection Method Collection Time Receive d Time (Source) Location / / Volume Laterality Blood specimen 10/28/2017 3:15 PM 018 3:24 (specimen) CDT PM CDT Yaya Hoover MD LAB - BLOOD ORDERABLES Performing Organization Address City/State/ZIP Code Phon e Number [facility] [address] [place] [address] [phone] [facility] [address] [place] [address], [place] [phone] Phosphorus (10/28/2017 3:15 PM CDT) athologist Signature Phosphorus 2.5 2.5 - 4.5 10/28/2017 [place] mg/dL 3:50 PM CDT [facility] Specimen Anatomical Collection Method Collection Time Receive d Time (Source) Location / / Volume Laterality Blood specimen 10/28/2017 3:15 PM 018 3:24 (specimen) CDT PM CDT Yaya Hoover MD LAB - BLOOD ORDERABLES Performing Organization Address City/State/ZIP Code Phon e Number [facility] [address] [phone] [facility] [address] [address], [facility] [phone] Blood culture (10/28/2017 3:15 PM CDT) [facility] Method Time Signature Specimen Blood Right INFECTIOUS Description Arm DISEASE DIAGNOSTIC LABORATORY Special Aerobic and 10/28/2017 [place] Requests anaerobic 3:27 PM CDT [facility] received Culture Micro No growth 11/03/2017 INFECTIOUS 6:46 AM CDT DISEASE DIAGNOSTIC LABORATORY Specimen Anatomical Collection Method Collection Time Receive d Time (Source) Location / / Volume Laterality Blood specimen UPPER LIMB 10/28/2017 3:15 PM 018 3:27 (specimen) STRUCTURE / CDT PM CDT Unknown Comment: Right Arm Yaya Hoover MD LAB - MICRO GENERAL ORDERABL ES Performing Organization Address City/State/ZIP Code Phon e Number INFECTIOUS DISEASES [address] [place] [address] DIAGNOSTIC LABORATORY, [facility] INFECTIOUS DISEASE [address] [place] [address], [facility] DIAGNOSTIC LABORATORY [facility] [address] [address], [facility] (ABNORMAL) Erythrocyte sedimentation rate auto (10/28/2017 3:15 PM CDT) athologist Signature Sed Rate 66 (H) 0 - 30 mm/h 10/28/2017 [place] 3:48 PM CDT [facility] Specimen Anatomical Collection Method Collection Time Receive d Time (Source) Location / / Volume Laterality Blood specimen 10/28/2017 3:15 PM 018 3:24 (specimen) CDT PM CDT Yaya Hoover MD LAB - BLOOD ORDERABLES Performing Organization Address City/State/ZIP Code Phon e Number [facility] [address] [place] [address] [phone] [facility] [address] [place] [address], [place] [phone] (ABNORMAL) CRP inflammation (10/28/2017 3:15 PM CDT) Patholo gist Method Time Signature CRP Inflammation 137.0 (H) 0.0 - 8.0 10/28/2017 [place] mg/L 3:50 PM CDT [facility] Specimen Anatomical Collection Method Collection Time Receive d Time (Source) Location / / Volume Laterality Blood specimen 10/28/2017 3:15 PM 018 3:24 (specimen) CDT PM CDT Yaya Hoover MD LAB - BLOOD ORDERABLES Performing Organization Address City/State/ZIP Code Phon e Number [facility] [address] [place] [address] [facility] [address] [place] [address], [place] [phone] Lactic acid whole blood (10/28/2017 3:15 PM CDT) P athologist Signature Lactic Acid 1.7 0.7 - 2.0 10/28/2017 [place] mmol/L 3:30 PM CDT [facility] Specimen Anatomical Collection Method Collection Time Receive d Time (Source) Location / / Volume Laterality Blood specimen 10/28/2017 3:15 PM 018 3:28 (specimen) CDT PM CDT Yaya Hoover MD LAB - BLOOD ORDERABLES Performing Organization Address City/State/ZIP Code Phon e Number [facility] [address] [place] [address] [phone] [facility] [address] [place] [address], [place] [phone] (ABNORMAL) Comprehensive metabolic panel (10/28/2017 3:15 PM [facility]) [facility] Signature Sodium 138 133 - 144 10/28/2017 [facility] mmol/L 3:47 PM [facility] Potassium 3.8 3.4 - 5.3 10/28/2017 [facility] mmol/L 3:47 PM [facility] Chloride 104 94 - 109 10/28/2017 [place] mmol/L 3:47 PM [facility] Carbon Dioxide 28 20 - 32 10/28/2017 [facility] mmol/L 3:47 PM [facility] Anion Gap 6 3 - 14 10/28/2017 [place] mmol/L 3:47 PM [facility] Glucose 122 (H) 70 - 99 10/28/2017 [place] mg/dL 3:47 PM [facility] Urea Nitrogen 14 7 - 30 10/28/2017 [place] mg/dL 3:47 PM [facility] Creatinine 0.48 (L) 0.52 - 10/28/2017 [place] 1.04 mg/dL 3:47 PM [facility] GFR Estimate >90 >60 10/28/2017 [place] mL/min/1.7 3:[address] Comment: Non GFR Calc GFR Estimate If >90 >60 mL/min/1.7m2 10/28/2017 3:47 P [facility] Comment: GFR Calc Calcium 7.8 (L) 8.5 - 10.1 10/28/2017 3:47 PM [place] mg/dL [facility] Bilirubin Total 0.6 0.2 - 1.3 mg/dL 10/28/2017 3:50 PM [facility] Albumin 1.6 (L) 3.4 - 5.0 g/dL 10/28/2017 3:47 PM [facility] Protein Total 6.4 (L) 6.8 - 8.8 g/dL 10/28/2017 3:50 PM [facility] Alkaline Phosphatase 82 40 - 150 U/L 10/28/2017 3:50 PM [facility] ALT 65 (H) 0 - 50 U/L 10/28/2017 3:47 PM [facility] AST 66 (H) 0 - 45 U/L 10/28/2017 3:47 PM [facility] Specimen Anatomical Collection Method Collection Time Receive d Time (Source) Location / / Volume Laterality Blood specimen 10/28/2017 3:15 PM 018 3:24 (specimen) CDT PM CDT Yaya Hoover MD LAB - BLOOD ORDERABLES Performing Organization Address City/[facility]/ZIP [facility] Phon e Number [facility] [address] [place] [address] [phone] [facility] [address] [place] [address], [place] [phone] (ABNORMAL) Partial thromboplastin time (10/28/2017 3:15 PM CDT) P athologist Signature PTT 46 (H) 22 - 37 sec 10/28/2017 [place] 3:40 PM CDT [facility] Specimen Anatomical Collection Method Collection Time Receive d Time (Source) Location / / Volume Laterality Blood specimen 10/28/2017 3:15 PM 018 3:24 (specimen) CDT PM CDT Yaya Hoover MD LAB - BLOOD ORDERABLES Performing Organization Address City/State/ZIP Code Phon e Number [facility] [address] [place] [address] [phone] [facility] [address] [place] [address], [place] [phone] (ABNORMAL) INR (10/28/2017 3:15 PM CDT) P athologist Signature INR 1.96 (H) 0.86 - 1.14 10/28/2017 [place] 3:40 PM CDT [facility] Specimen Anatomical Collection Method Collection Time Receive d Time (Source) Location / / Volume Laterality Blood specimen 10/28/2017 3:15 PM 018 3:24 (specimen) CDT PM CDT Yaya Hoover MD LAB - BLOOD ORDERABLES Performing Organization Address City/State/ZIP Code Phon e Number [facility] [address] [address] [phone] [facility] [address] [address], U [phone] (ABNORMAL) CBC with platelets differential (10/28/2017 3:15 PM CDT) [facility] gist Method Time Signature WBC 12.8 (H) 4.0 - 10/28/2017 [facility] 11.0 3:28 PM T [facility] 10e9/L [facility] RBC Count 3.78 (L) 3.8 - 5.2 10/28/2017 [facility] 10e12/L 3:28 PM [facility] Hemoglobin 12.0 11.7 - 10/28/2017 [facility] 15.7 g/dL 3:28 PM [facility] Hematocrit 35.0 35.0 - 10/28/2017 [facility] 47.0 % 3:28 PM [facility] MCV 93 78 - 100 10/28/2017 [facility] fl 3:28 PM [facility] MCH 31.7 26.5 - 10/28/2017 [facility] 33.0 pg 3:28 PM [facility] MCHC 34.3 31.5 - 10/28/2017 [facility] 36.5 g/dL 3:28 PM [facility] RDW 13.9 10.0 - 10/28/2017 [facility] 15.0 % 3:28 PM [facility] Platelet Count 376 150 - 450 10/28/2017 [facility] 10e9/L 3:28 PM [facility] Diff Method Automated 10/28/2017 [facility] Method 3:28 PM [facility] % Neutrophils 83.4 % 10/28/2017 [facility] 3:28 PM [facility] % Lymphocytes 8.1 % 10/28/2017 [facility] 3:28 PM [facility] % Monocytes 5.7 % 10/28/2017 [facility] 3:28 PM [facility] % Eosinophils 1.8 % 10/28/2017 [facility] 3:28 PM CDT [facility] % Basophils 0.2 % 10/28/2017 [facility] 3:28 PM T [facility] % Immature 0.8 % 10/28/2017 [place] Granulocytes 3:28 PM [facility] Nucleated RBCs 0 0 /100 10/28/2017 [facility] 3:28 PM [facility] Absolute 10.7 (H) 1.6 - 8.3 10/28/2017 [place] Neutrophil 10e9/L 3:28 PM T [facility] Absolute 1.0 0.8 - 5.3 10/28/2017 [place] Lymphocytes 10e9/L 3:28 PM T [facility] Absolute 0.7 0.0 - 1.3 10/28/2017 [place] Monocytes 10e9/L 3:28 PM [facility] Absolute 0.2 0.0 - 0.7 10/28/2017 [place] Eosinophils 10e9/L 3:28 PM [facility] Absolute 0.0 0.0 - 0.2 10/28/2017 [place] Basophils 10e9/L 3:28 PM T [facility] Abs Immature 0.1 0 - 0.4 10/28/2017 [place] Granulocytes 10e9/L 3:28 PM [facility] Absolute 0.0 10/28/2017 [place] Nucleated RBC 3:28 PM [facility] Specimen Anatomical Collection Method Collection Time Receive d Time (Source) Location / / Volume Laterality Blood specimen 10/28/2017 3:15 PM 018 3:24 (specimen) CDT PM CDT Yaya Hoover MD LAB - BLOOD ORDERABLES Performing Organization Address City/State/ZIP Code Phon e Number [facility] [address] [address] [phone] [facility] [address] [address], [facility] [phone] Clostridium difficile toxin B PCR (10/28/2017 2:49 PM CDT) [facility] Method Time Signature Specimen Feces 10/28/2017 [place] Description 2:59 PM T [facility] C Diff Toxin B Negative NEG^Negat 10/28/2017 [facility] OF PCR vance 8:00 PM CDT [facility] Comment: Negative: Clostridium difficile target D NA sequences NOT detected, presumed negative for Clostridium difficile toxin B or the number of bacteria present may be below the limit of detection for the test. FDA approved assay performed using [employer] GeneXpert real-time PCR. A negative result does not exclude actua l disease due to Clostridium difficile and may be due to improper collection, handling and storage of the specimen or the number of organisms in the specim en is below the detection limit of the assay. Specimen Anatomical Collection Method Collection Time Receive d Time (Source) Location / / Volume Laterality Stool specimen 10/28/2017 2:49 PM 018 3:10 (specimen) CDT PM CDT Yaya Hoover MD LAB - MICRO GENERAL ORDERABL ES Performing Organization Address City/State/ZIP Code Phon e Number [facility] [address] [place] [address] [facility] [address] [place] [address], [facility] [phone] (ABNORMAL) Tissue Culture Aerobic Bacterial (10/28/2017 2:25 PM CDT) Component Value Ref Test Analysis Performed At [facility] gist Range Method Time Signature Specimen Gluteal Tissue [facility] Left Fold Wound [facility] Culture Micro Light growth 11/01/2017 [facility] O F Staphylococcus aureus 2:48 PM CDT [place] MED ICAL (A) [facility] Culture Micro Light growth 11/01/2017 [facility] O F Enterococcus faecium 2:48 PM CDT [place] MEDI TOMA (A) [facility] Culture Micro Light growth 11/01/2017 [place] O F Strain 2 2:48 PM CDT [facility] Staphylococcus aureus [facility] (A) B[facility] Culture Micro On day 1, isolated in broth only: [facility]ITY OF Klebsiella oxytoca 2:48 PM CDT [place] MEDICA [place] (A) [facility] Culture Micro Moderate growth 11/01/2017 UNIVERSIT Y OF Actinomyces neuii 2:48 PM CDT [place] MEDICAL Susceptibility testing not routinely done [facility] (A) [facility] Culture Micro Isolated in the broth only: ?? 11/01 [facility] OF Bacteroides fragilis group 2:48 PM CDT N MEDICAL (A) [facility] Culture Micro Isolated in the broth only: ?? 11/01 [facility] OF Mixed aerobic and anaerobic mikaela 2:48 P M CDT [place] [facility]ICAL (A) [facility] Specimen (Source) Anatomical Collection Method Collection Time Re ceived Time Location / / Volume Laterality Buttock structure 10/28/2017 2:25 018 3:10 (body structure) PM CDT PM CDT Comment: Tissue~Left~Fold Wound Organism Antibiotic Method Susceptibility Staphylococcus aureus Clindamycin LOW >=8 ug/mL: Resistant Staphylococcus aureus Erythromycin LOW >=8 ug/mL: Resistant Staphylococcus aureus Gentamicin LOW <=0.5 ug/m L: Susceptible Staphylococcus aureus Oxacillin LOW <=0.25 ug/ mL: Susceptible Staphylococcus aureus Penicillin LOW ug/mL: Re sistant Staphylococcus aureus Tetracycline LOW <=1 ug/mL: Susceptible Staphylococcus aureus Trimethoprim/Sulfamethoxazo LOW <=0.5/9.5 ug/mL: Susceptible le Staphylococcus aureus Vancomycin LOW 1 ug/mL: S usceptible Enterococcus faecium Ampicillin LOW <=2 ug/mL: Susceptible Enterococcus faecium Penicillin LOW 2 ug/mL: [place] sceptible Enterococcus faecium Vancomycin LOW <=0.5 ug/mL : Susceptible Enterococcus faecium Gentamicin Screen LOW Susceptib le Comment: No high level gentamicin res istance found - If no high level gentamicin resistance is found, combina tion therapy with an aminoglycoside may be indicated for serious entero coccal infections such as bacteremia and endocarditis. Staphylococcus aureus Clindamycin LOW >=8 ug/mL: Resistant Staphylococcus aureus Erythromycin LOW >=8 ug/mL: Resistant Staphylococcus aureus Gentamicin LOW <=0.5 ug/m L: Susceptible Staphylococcus aureus Oxacillin LOW <=0.25 ug/ mL: Susceptible Staphylococcus aureus Penicillin LOW ug/mL: Re sistant Staphylococcus aureus Tetracycline LOW <=1 ug/mL: Susceptible Staphylococcus aureus Trimethoprim/Sulfamethoxazole LOW <=0.5/9.5 ug/mL: Susceptible Staphylococcus aureus Vancomycin LOW 1 ug/mL: S usceptible Klebsiella oxytoca Amikacin LOW <=2 ug/mL: [place]ilar sceptible Klebsiella oxytoca Ampicillin LOW ug/mL: Resis tant Comment: Intrinsically Resis tant Klebsiella oxytoca Ampicillin/Sulbactam LOW 8 ug/mL: Susceptible Klebsiella oxytoca Cefepime LOW <=1 ug/mL: [place] sceptible Klebsiella oxytoca Ceftazidime LOW <=1 ug/mL: [place] sceptible Klebsiella oxytoca Ceftriaxone LOW <=1 ug/mL: [place] sceptible Klebsiella oxytoca Ciprofloxacin LOW <=0.25 ug/mL: Susceptible Klebsiella oxytoca Gentamicin LOW <=1 ug/mL: [place] sceptible Klebsiella oxytoca Levofloxacin LOW <=0.12 ug/mL: Susceptible Klebsiella oxytoca Piperacillin/Tazo LOW <=4 ug/mL: Susceptible Klebsiella oxytoca Tobramycin LOW <=1 ug/mL: [place]ilar sceptible Klebsiella oxytoca Trimethoprim/Sulfamethoxazole LOW <=1/19 ug/mL: Susceptible Klebsiella oxytoca Meropenem LOW <=0.25 ug/mL: Susceptible Yaya Hoover MD LAB - MICRO GENERAL ORDERABL ES Performing Organization Address City/State/ZIP Code Phon e Number [address] [address] [place] Tissue Culture Aerobic Bacterial (10/28/2017 2:25 PM CDT) [employer] Method Time Signature Specimen Other [facility] Culture Micro Canceled, Test credited 10/28/2017 [facility] [place] REORDERED SEPARATELY 3:13 PM CDT [facility] Specimen Anatomical Collection Method Collection Time Receive d Time (Source) Location / / Volume Laterality Specimen of BUTTOCK STRUCTURE 10/28/2017 2:25 PM 10/15 3:08 unknown material / Unknown CDT PM CDT (specimen) Yaya Hoover MD LAB - MICRO GENERAL ORDERABL ES Performing Organization Address City/State/ZIP Code Phon e Number [facility] [address] [place] [address] [phone] [facility] [address] [place] [address], [place] [phone] (ABNORMAL) Abscess Culture Aerobic Bacterial (10/28/2017 2:25 PM CDT) Component Value Ref Test Analysis Performed At [employer] Range Method Time Signature Specimen Gluteal Left [facility]ITY Description Abscess Drainage OF [place] gluteal fold [facility] Special This specimen was received o n a swab. Results may not be optimal. For maximum sensitivity 10/28/2017 [place] Requests of detection, submit tissue, fluid, or needle aspirate. 8:53 PM CDT OF [facility] Culture Micro Light growth 11/01/2017 [place] Staphylococcus aureus 2:49 PM CDT OF [place] Susceptibility testing done on previous specimen MEDICAL (A) [facility] Culture Micro Light growth 11/01/2017 [place] Enterococcus faecium 2:49 PM CDT OF [place] Susceptibility testing done on previous specimen MEDICAL (A) [facility] Culture Micro Light growth 11/01/2017 [facility]ITY Klebsiella oxytoca 2:49 PM CDT OF [place] Susceptibility testing done on previous specimen MEDICAL (A) [facility] Culture Micro Moderate growth 11/01/2017 UNIVERSIT Y Actinomyces neuii 2:49 PM CDT OF [place] Susceptibility testing not routinely done [facility] (A) [facility] Culture Micro Light growth 11/01/2017 UN[facility]ITY Corynebacterium species 2:49 PM CDT OF M N Susceptibility testing not routinely done MEDICAL These bacteria are part of n ormal skin mikaela, but on occasion, may be true pathogens. ?? [facility] Clinical correlation must be applied to interpreting this microbiology result. [facility] () Culture Micro Isolated in the broth only: ?? 11/01 [place] Mixed aerobic and anaerobic mikaela 2:49 P M CDT OF [place] () [facility] Culture Micro Isolated in the broth only: ?? 11/01 [place] Bacteroides fragilis group 2:49 PM CDT O F [place] () [facility] Specimen (Source) Anatomical Collection Method Collection Time Re ceived Time Location / / Volume Laterality Buttock structure BUTTOCK STRUCTURE 10/28/2017 2:25 3:08 (body structure) / Unknown PM CDT PM CDT Comment: Left~Abscess~Drainage~gluteal f old Yaya Hoover MD LAB - MICRO GENERAL ORDERABL ES Performing Organization Address City/State/ZIP Code Phon e Number [facility] [address] [place], [place] [phone] [place] [address] documented in this encounter Visit Diagnoses Diagnosis Necrotizing fasciitis (H) Necrotizing fasciitis documented in this encounter Administered Medications Inactive Administered Medications - up to 3 most recent administrations Medication Order MAR Action Action Date Dose Rate Site 0.9% sodium chloride BOLUS New Bag 10/28/2017 4:54 PM CDT 500 mLs 1000 mL/hr Intravenous, 500 mL, ONCE, at 1,000 mL/hr, Administer over 30 Minutes, On 10/28/17 at 1647, For 1 dose 100mL saline flush Given 10/28/2017 4:22 PM CDT 80 mLs Intravenous, 80 mL, ONCE, On 10/28/17 at 1601, For 1 dose, This entry is for use by Radiology to intermittently used as a flush in patients receiving a CT scan. clindamycin (CLEOCIN) infusion 900 New Bag 10/28/2017 6:45 PM CDT 900 mg 50 mL/hr mg STAT, 900 mg, Intravenous, ONCE, On 10/28/17 at 1835, For 1 dose, Indications: Skin and Soft Tissue Infection iopamidol (ISOVUE-370) solution 135 mL Given 10/28/2017 4:22 PM CDT 135 mLs 135 mL, Intravenous, ONCE, On 10/28/17 at 1601, For 1 dose meropenem (MERREM) 1 g vial to attach to NS New Bag 10/28/2017 4:4 7 PM CDT 1 g 100 mL bag STAT, 1 g, Intravenous, ONCE, On 10/28/17 at 1603, For 1 dose, Indications: Sepsis, Skin and Soft Tissue Infection vancomycin (VANCOCIN) 2,500 mg in sodium New Bag 018 5:39 PM CDT 2,500 mg chloride 0.9 % 500 mL intermittent infusion STAT, 2,500 mg, Intravenous, ONCE, On 10/28/17 at 1630, For 1 dose, Vesicant. For peripheral catheter: If dose between 2-2.5 g, infuse over 2 hours. For central catheter: If dose is below 2 g, dose may be infused over 1 hour., Indications: Sepsis, Skin and Soft Tissue Infection documented in this encounter Active and Recently Administered Medications Times are shown in CDT. Scheduled Medication Order 10/26/2017 10/27/2017 10/28/2017 0.9% sodium chloride BOLUS (COMPLETED) 1654 (New Bag - Provider: Sha Grimm, CHANDLER)1825 (Stopped - Provider: Sha Grimm RN) Intravenous, 500 mL, ONCE, at 1,000 mL/h r, Administer over 30 Minutes, 10/28/17 at 1647, For 1 dose 100mL saline flush (COMPLETED) 1 622 (Given - Provider: Elizabeth Ochoa) Intravenous, 80 mL, ONCE, 10/28/17 at 1601, For 1 dose, This entry is for use by Radiology to intermittently used as a flush in patients receiving a CT scan. clindamycin (CLEOCIN) infusion 900 mg (COMPLETED) 1845 (New Bag - Provider: Sha Grimm RN)1850 (ED Infusing on Admission/transfer - Provider: Sha Grimm RN) 900 mg, Intravenous, ONCE, 10/28/17 a t 1835, For 1 dose, Indications: Skin and Soft Tissue Infection iopamidol (ISOVUE-370) solution 135 mL (COMPLETED) 1622 (Given - Provider: Elizabeth Ochoa) 135 mL, Intravenous, ONCE, 10/28/17 at 1601, For 1 dose meropenem (MERREM) 1 g vial to attach to NS 100 mL bag (COMPLETE D) 1647 (New Bag - Provider: Sha Grimm RN)1723 (Stopped - Provider: Sha Grimm RN) 1 g, Intravenous, ONCE, 10/28/17 at 1 603, For 1 dose, Indications: Sepsis, Skin and Soft Tissue Infection vancomycin (VANCOCIN) 2,500 mg in sodium chloride 0.9 % 500 mL intermittent infusion (COMPLETED) 173 (New Bag - Pro vider: Sha Grimm RN)1850 (ED Infusing on Admission/transfer - Provider: Sha Grimm RN) 2,500 mg, Intravenous, ONCE, 10/28/17 at 1630, For 1 dose, Vesicant. For peripheral catheter: If dose between 2-2.5 g, infuse over 2 hours. For central catheter: If dose is below 2 g, dose may be inf used over 1 hour., Indications: Sepsis, Skin and Soft Tissue Inf ection documented in this encounter Care Teams Sole Stitcher Hand Relationship Specialty Start Date End Date Lucero Stevenson PCP - General Pediatrics 10/11/11 04/22/19 MD Annetta Chastity Montero MD Dermatology 09/23/[address] [place] [address] [address] [place] [address] Johnnie Alcocer MD Surgeon General Surgery 03/23/17 [address] [facility] [address] [place] [address] sFannie RN [facility] Business Education Teacher Primary Care - CC 10/26/17 11/14/17 documented as of this encounter
--- OUTSIDE RECORDS SUMMARY | 2022-06-15 13:14 | XMS_ITS | Encounter Summary ---
:1945 Author Organization [facility] Address [address] [place] [id number] Care Team Providers Name Role Phone Lucero Stevneson MD Primary Care Provider Chastity Montero MD Unavailable [phone] Johnnie Alcocer MD Unavailable Reason for Visit Auth/Cert Specialty Diagnoses / Procedures Referred By Contact Refer red To Contact Orthopedics Diagnoses Non-traumatic rhabdomyolysis Rhabdomyolysis Rh Orth[facility] Sp[facility] [address] [place], [place] [address] Phone: Fax: Referral ID Status Reason Start Date Expiration Date Visits Requ ested Visits Authorized [id number] 10/19/2017 10/19/2018 1 1 Encounter Details Date Type Department Care Team Description 10/18/2017 - [facility] Gibson Dawkins MD [facility] [address] [place], [place] [phone] Cellulitis of left lower extremity (Prim joe Dx); 10/25/2017 Encounter [facility] Chele Figueroa MD [address] [place], [place] [phone] Non-traumatic rhabdomyolysis; Spine Gastroesophageal reflux dise ase without esophagitis [address] [place] [address] Social History Tobacco Use Types [...] Sign Reading Time Taken Comments Blood Pressure 166/90 10/25/2017 4:03 PM CDT Pulse 96 10/25/2017 4:03 PM CDT Temperature 36.4 ??C (97.6 ??F) 10/25/2017 4:03 PM CDT Respiratory Rate 16 10/25/2017 7:57 AM CDT Oxygen Saturation 97% 10/25/2017 4:03 PM CDT Inhaled Oxygen Concentration - - Weight 184.6 kg (407 lb) 10/25/2017 6:16 AM CDT Height - - Body Mass Index 65.72 01/20/2017 11:22 AM CDT documented in this encounter Discharge Summaries Anival Hernandez MD - 10/25/2017 3:11 PM CDT [facility] Discharge Summary Marzena Evans Date of : 1945 Age: [age] year old Date of Admission: 10/18/2017 Date of Discharge: 10/25/2017 Admitting Physician: Chele Newell MD Discharge Physician: Anival Hernandez MD Discharging Service: Hospitalist Primary Provider: Lucero Valdez Primary Care Physician Discharge Diagnoses/Problem Oriented Hospital Course (Providers): Marzena Evnas was admitted on 10/18/2017 by Chele Newell MD and I would refer you to their history and physical. Patient was seen and examined on the day of discharge Discharge diagnoses: 1. Acute rhabdomyolysis 2. Multiple skin ulcerations secondary to prolonged floor exposure and immobility 3. Left lower extremity cellulitis 4. 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 Obstructive sleep apnea 6. Transaminitis: Likely due to musculoskeletal rhabdomyolysis as opposed to hepatic source 7. Hypertension 8. Generalized weakness 9. Hypophosphatemia and hypokalemia due to lack of p.o. Intake Hospital course: 1. Acute rhabdomyolysis: Patient is a 72-year-old female with a history significant for morbid obesity, thromboembolic disease on Coumadin, obstructive sleep apnea, and hypertension who had been livingindependently and reports falling 3 days prior to admission. Since that time, she has not been able to get up but was able to eventually dragged herself near the phone cord where she was able to pull the phone down and called 911. She was brought in by EMS and notably had multiple skin ulcerations along with left lower extremity cellulitis. Additionally, she had significant muscle breakdown consistent with rhabdomyolysis secondary to prolonged floor exposure and immobility. Patient was admitted and started on IV fluid resuscitation. Creatinine was otherwise stable. Repositioning was encouraged. HerCK levels did trend down with IV fluids so this was discontinued at her last CK total levels were inthe 200s. Continue to push p.o. fluids. Also encourage mobility. 2. Multiple back skin ulceration and left lower extremity cellulitis: This is secondary to fall and prolonged floor exposure. Patient was placed initially on IV clindamycin and then will be transitioned to p.o. clindamycin at discharge. 3. History of DVT/PE: Coumadin dosing per pharmacy and was therapeutic. 4. Obstructive sleep apnea: Continue CPAP at next level of care 5. Hypertension: Patient was on losartan and hydrochlorothiazide prior to admission. These were holdsecondary to dehydration and rhabdomyolysis. Metoprolol was started instead and increased to 50 mg p.o. twice daily. May consider re-adding losartan and hydrochlorothiazide at a later point in time if creatinine stable. 6. Generalized weakness: Likely deconditioning from prolonged immobility and bed rest. PT/OT was consulted and did recommend TCU at discharge. Disposition: Discharged to tcu in stable condition. Follow-up 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 physician at next level of care Pending Results: Unresulted Labs Ordered in the Past 30 Days of this Admission No orders found from 08/19/2017 to 10/19/2017. Discharge Instructions and Follow-Up: Follow-up Appointments Follow Up and recommended labs and tests Follow up with group home physician. The following labs/tests are recommended: bmp/cbc on 10/27/17. Discharge Disposition: Discharged to TCU Discharge Medications: Current Discharge Medication List START taking these medications Details lactobacillus rhamnosus, GG, (CULTURELL) capsule Take 1 capsule by mouth 2 times daily for 7 days Qty: 14 capsule, Refills: 0 Associated Diagnoses: Cellulitis of left lower extremity clindamycin (CLEOCIN) 300 MG capsule Take 2 capsules (600 mg) by mouth 3 times daily for 3 days Qty: 18 capsule, Refills: 0 Associated Diagnoses: Cellulitis of left lower extremity omeprazole (PRILOSEC) 40 MG capsule Take 1 capsule (40 mg) by mouth every morning Qty: 30 capsule Associated Diagnoses: Gastroesophageal reflux disease without esophagitis CONTINUE these medications which have NOT CHANGED Details desoximetasone (TOPICORT) 0.05 % GEL Apply topically 2 times daily as needed for inflammation or itching !! warfarin (COUMADIN) 10 MG tablet Take 10mg MWF or as directed by INR clinic. Qty: 40 tablet, Refills: 1 Associated Diagnoses: detention current use of anticoagulant therapy !! warfarin (COUMADIN) 7.5 MG tablet Take 7.5mg (1 tablet) on TTSS (take 10mg tabs on MWF) or as directed by INR Clinic. Qty: 50 tablet, Refills: 1 Associated Diagnoses: detention current use of anticoagulant therapy hydrocortisone 2.5 % ointment Daily as needed Qty: 180 g, Refills: 3 Associated Diagnoses: Dermatitis atenolol (TENORMIN) 25 MG tablet Take 1 tablet (25 mg) by mouth 2 times daily Qty: 180 tablet, Refills: 3 Associated Diagnoses: Essential hypertension, benign losartan (COZAAR) 100 MG tablet Take 1 tablet (100 mg) by mouth daily Qty: 90 tablet, Refills: 3 Associated Diagnoses: Essential hypertension, benign Cholecalciferol (VITAMIN D PO) Take 10,000 Units by mouth daily cetirizine (ZYRTEC) 10 MG tablet Take 10 mg by mouth 2 times daily acetaminophen (TYLENOL) 325 MG tablet Take 325 mg by mouth daily !! - Potential duplicate medications found. Please discuss with provider. STOP taking these medications triamterene-hydrochlorothiazide (DYAZIDE) 37.5-25 MG per capsule Comments: Reason for Stopping: Allergies: Allergies Allergen Reactions ??? Cephalexin Hives Keflex - hives ??? Lanolin Other (See Comments) skin irritation ??? Lisinopril Cough ??? Neomycin Other (See Comments) skin irritation ??? Penicillins Hives ??? Bactroban [Mupirocin Calcium] Rash Consultations This Hospital Stay: No consultations were requested during this admission Image Results From This Hospital Stay (For Non-EPIC Providers): Results for orders placed or performed during the hospital encounter of 10/18/17 US Lower Extremity Venous Duplex Left Port Narrative VENOUS ULTRASOUND LEFT LEG 10/19/2017 3:05 AM HISTORY: History of numerous DVTs, off coumadin for 3-4 days. Now with left lower extremity cellulitis vs question of clot. COMPARISON: None. FINDINGS: Examination of the deep veins with graded compression and color flow Doppler with spectral wave form analysis shows no evidence of thrombus in the left common femoral vein, femoral vein, popliteal vein or calf veins. The right common femoral vein was evaluated for comparison and is normal. There is a fluid collection with multiple scattered internal septations measuring 9.5 x 7.1 x 6.0 cm. Impression IMPRESSION: 1. No deep vein thrombosis in the left lower extremity. 2. Fluid collection in the left popliteal fossa. May represent a postoperative seroma or Lopez's cyst. YANET DE JESUS, DO CT Head w/o Contrast Narrative CT OF THE HEAD WITHOUT CONTRAST 10/20/2017 3:57 PM COMPARISON: None. HISTORY: Atrial fibrillation with earlier toe numbness, recent fall, rule out CVA. TECHNIQUE: [address] images [...] to patient size, or iterative reconstruction technique. REGGIE ZHANG MD documented in this encounter Medications at Time [...] 03/17/2019 325 MG tablet daily as needed atenolol (TENORMIN) 25 Take 1 tablet (25 [...] 1 01/201804/26/2018 MG tabletIndications: directed by INR detention current use of clinic. 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 documented as of this encounter Progress Notes Evon Dillon RN - 10/25/2017 2:38 PM CDT Reviewed AVS with pt and given copy. Discharging at 1600 via [facility] stretcher to [facility] with belongings 1605: called [facility] and spoke with Huong in admissions, told BP 166/90 at this time and she stated would be fine to transfer pt. Cristin Campoverde - 10/25/2017 10:40 AM CDT Your information has been submitted on October 25, 2017 at 10:39:58 AM CDT. The confirmation number is [id number] Angelina Albrecht RN - 10/25/2017 10:37 AM CDT Transition Communication Hand-off for Care Transitions to Next Level of Care Provider Name: Marzena Evans : 1945 Primary Care Provider: Lucero Stevenson carbide grinder Name: Lucero Stevenson MD Primary Clinic: [address] [place] [address] [place] [address] Primary Care Clinic Name: [facility] Reason for Hospitalization: Non-traumatic rhabdomyolysis [M62.82] Admit Date/Time: 10/18/2017 9:04 PM Discharge Date: 10/25/2017 Payor Source: Payor: MEDICARE / Plan: MEDICARE / Product Type: Medicare / Readmission Assessment Measure (JAZMYNE) Risk Score/category: Average Plan of Care Goals/Milestone Events: Patient Concerns: her wt. Patient Goals: Short-term : Rehab back to baseline. She has become severely deconditioned with her morbid obesity she was on floor at home for 3 days and came in with Rhabdo, she subsequently has become increasing more deconditioned during her hospital stay. Long-term: Weight Loss Reason for Communication Hand-off Referral: Fragility, pt has been idenifited as having Hoader issues in her home, she was down for three days and crawled to her phone on day three and called 911. Pt is morbid Obese at 407 lbs and 5'5. Patient will receive the following: TCU , [facility] Bariatric Bed. Discharge Needs Assessment: Needs Most Recent Value Anticipated Changes Related to Illness inability to care for self Equipment Currently Used at Home cane, straight Transportation Available -- [bariatric stretcher ] # of Referrals Placed by CTS Communication hand-offs to next level of Care Providers Follow-up plan: Future Appointments Date Time Provider Department Center 10/30/2017 10:15 AM Chastity Montero MD [facility] 11/06/2017 11:15 AM [facility] 01/23/2018 10:00 AM Osmar Kidd MD [facility] [place] Recommendations: Clinic Care coordination recommended, please follow after DC from TCU for needsAs indicated above, pt is Hoarder, obese and has been maintaining in her home with no hospital admissions, goals as stated above. Daughter is support, she is planning on cleaning out her mothers home while she is in TCU- wether this happens or not is yet to be determined , but that is what has been discussed with opt. Angelina Albrecht AVS/Discharge Summary is the source of truth; this is a helpful guide for improved communication of patient story Angelina Albrecht, RN - 10/25/2017 9:53 AM CDT Care Transitions Team: Following for CC, discharge planning, and disposition. Per MD pt is medically stable for discharge today. Pt has been accepted at [facility] in a Bariatric room. NO Private room fee. Pt requires bariatric HE stretcher transport. Potential for fee's where discussed here with understanding, both pt and dtr. Transport has been arranged at 1600 today. Raquel has been updated on transport time as well. PCP handoff on discharge. NO further needs Angelina Albrecht RN, BSN, CTS Care Transitions Team [phone] Antonia Palmer RN - 10/24/2017 3:29 PM CDT [facility] Nurse Inpatient Adult Pressure Injury (PI) Wound Assessment Assessment of PI(s) on pt's: Multiple areas Data: Patient History: per MD note(s): 72 year old female history of morbid obesity prior PE/DVT on chronic Coumadin, CEFERINO on appliance, hypertension, living independently at home who was brought in here after she was found laying on the floor and reportedly had a fall 3 days ago. She had an underlying rhabdomyolysis with possible left lower extremity cellulitis. ?? Current mattress: Bariatric Pulsate Current pressure relieving devices: Mepilex dressings and Pillows ?? Moisture Management: Urinary Catheter ?? Catheter secured? No ?? Current Diet / Nutrition: Active Diet Order Combination Diet Regular Diet Adult ?? Randall Assessment and sub scores: Randall Score Av Min: 13 Max: 15 Labs: Recent Labs Lab Test 10/24/17 0758 10/22/17 0539 10/20/17 0637 01/03/17 1158 ALBUMIN -- -- 1.5* -- 1.7* < > -- HGB -- -- -- -- 12.2 < > 14.0 INR 2.73* < > 2.80* < > 1.97* < > -- WBC -- -- 13.1* -- 14.1* < > 4.7 A1C -- -- -- -- -- -- 5.2 < > = values in this interval not displayed. Pressure Injury Assessment (location) Left side of pt Wound History: Multiple deep tissue pressure injury present on admission after extended fall on floor in bathroom at home; pt reports that she sat on the bathroom floor resting against the vanity and her left foot was jammed against the bathtub. ?? Specific Dimensions (length x width x depth, in cm) : ?? 1. Left Upper Back: 2x6cm blanching erythema- with superficial erosion of epidermis- Stage 2- resolving and improved ?? 2. Left inner groin fold: 7x11cm deep purple now non blanchable erythema with superficial erosion, pink moist dermis- DTPI evolved to Stage 2 ?? 3. Left Inner THigh: 5x5cm deep purple now non blanchable erythema and denuded - DTPI evolving toStage 2; Groin/ thigh: periwound has denuded skin- Stage 2 ?? 4. Left Posterior IT/ Entire Buttocks has significant damage; evolving unstageable, soft thin dark dry necrotic tissue: 8x15cm extending towards rectum was moist yellow slough now red dry scabs withdarker tissue; total area of [id number], Periwound extends to the ENTIRE buttocks deep non blanchable erythema/ maroon skin with scattered open areas- Unstageable evolving ?? 5. Left Buttock Crease: fold intact non blanchable erythema with superficail erosion of pink dermis- DTPI evolving into Stage 2 ?? 6. Left Posterior lower Thigh: 8 x 8 intact deep purple now non blanchable erythema intact skin- DTPI evolving into Stage 1 ?? 7. Left Anterior LE: 8x1 x0.1cm moist pink/ white tissue; Periwound erythema consistent with cellulitis vs Stage 2 and drying and healing nicely, minimal non viable tissue, continue with Mepilex ?? 8. Left Posterior LE: entire upper calf was deep purple; firm induration, consistent with cellulitis continues to evolve and resolve with ABX, continues to be less red and firm, very obese skin fold- cellulitis ?? 9. Left Lateral Heel: 3x3cm deep maroon intact skin- DTPI ?? 10. Left Plantar (Ball of Foot): 3.5 x 6cm deep purple thick skin evolving into deep erythema with scattered areas of deeper purple to outer edges- DTPI evolving and stable. ?? 10. A: Left 2nd toe Plantar: deep purple seen on 10/20 is now non blanchable intact erythema, DTPI evolving into Stage 1 ?? Odor: none, ?? Pain: minimal , tender when touched Pressure Injury Assessment (location): Right side of pt Wound History: See above; Present on admission ?? Specific Dimensions (length x width x depth, in cm) : ?? 11. RIght Buttocks: scattered superficial bruised intact skin, deep purple now non blanchable erythema, resolving- DTPI evolving into Stage 1 ?? 12. Right Hip: Irregular shaped wound, appears like 3 long scratch marcum of deep maroon/ purple with 10x 15 x 0.1cm blistered area of partial serous intact skin and unroofed blistered open pink moist dermis; small serous drainage- Evolving DTPI- stable continue with mepilex, minimal drainage ?? 13. Right Posterior Upper Thigh: Linear line across posterior thigh; 1x 15cm intact deep purple now non blanchable erythema intact skin- DTPI evolving into Stage 1 ?? 14. Right IT: 5 x 10cm intact deep purple skin evolving into non blanchable erythema- DTPI- evolving into Stage 1 ?? Odor: improved ?? Pain: No complaint Wound Assessment: Perineal area- Labia minoris Wound History: Extremely difficult to visualize the area due to heavy thigh folds, ?? Specific Dimensions (length x width x depth, in cm) : Labia erythema is resolving DTPI- tissue ispink, no induration or drainage/Odor ?? Pain: no complaint Intervention: ?? Patient's chart evaluated. ?? Randall Interventions: Current Randall Interventions and Care Plan reviewed and updated, appropriate at this time. ?? Wounds assessed with nursing staff. Wound Care: was done: Removal of existing dressings, Visual inspection ?? Cleansing with Tanna cleanse/ microklenz and Application of topical Critic aid paste/ stoma powderand Triad paste, re-application of clean dressing Mepilex to some areas that are open ?? Orders Reviewed ?? Supplies ordered: Triad paste ; reviewed at the bedside, discussed with RN, discussed with patient ?? Discussed plan of care with Patient, Nurses Assessment: ?? Multiple significant Pressure Injuries after fall at home and sitting on hard floor for 3 days, see above for stage; all present on admission. ?? Wounds will continue to evolve DTPI; some are resolving into Stage 1 or 2, ?? Status: wound stable, evolving ?? As wounds evolve may need to involve surgery, plastic surgery for wound care especially to Left Buttocks Unstageable PI. ?? Pt will need middle or 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 school principal care to heal wounds ?? Cellulitis to LLE improved with current ABX and treatment. Foot has scattered red pin dots, bilateral feet are calloused and dry, fungal toenails. ?? Labial wound improved with current POC. Plan: ?? Nursing to notify the Provider(s) and re-consult the [facility] Nurse if wound(s) deteriorate(s)or if the wound care plan needs reevaluation. ?? Plan for wound care to wound located on Buttocks: BID ?? 1. Gently wipe skin clean with MicroKlenz spray, pat dry BID for assessment ?? 2. If pt incontinent: cleanse groin/ klever/ rectal area using Tanna cleanse and dab stool away ?? 3. Dust OPEN skin to gluteal cleft with Stoma powder ?? 4. Apply TRIAD paste to black/ yellow/ Open ulcerations; cover with ABD ?? 5. Apply Critic aid paste to all other areas 6. Pressure Injury prevention.: PIP ACTIVITY MEASURES: If pt is refusing to turn or reposition they must be educated on the potential injury from not off loading pressure. Then this educated refusal needs to be documented as an educated refusal to turn/reposition and document if alert, etc. BED: Reposition side to side every 1-2 hours when awake. Keep heels elevated on pillows As able keep HOB below 30 degrees Bariatric Pulsate specialty mattress NOTE: If pt is refusing to turn or reposition they must be educated on the potential injury from notoffloading pressure. Then this educated refusal needs to be documented as an educated refusal to turn/ reposition and document if alert, etc. Additionally please notify MD and charge nurse of refusal(s). ? Wound care to Open wounds: Every other day ?? 1. Cleanse with MicroKlenz spray and pat dry. Cover with Mepilex and date [facility] Nurse will return: PRN/ Weekly Evon Dillon RN - 10/24/2017 11:07 AM CDT Per conversation with Auto Finance Sales Rep Angelina, discussed pt current weight being 21 pounds greater than admission weight. Per Dr Hernandez, IV fluids stopped. No increase SOB noted, BLE appear smaller than noted on Monday10/22/17. Night staff stated bed not zero'd, so they stated that they zero'd the bed to get current weight. Questioning accuracy of admission weight. Will continue to follow and monitor. Angelina Albrecht, RN - 10/24/2017 10:48 AM CDT Care Transitions Team: Following for CC, discharge planning, and disposition. Per chart review Pt could be medically stable for Dc tomorrow. Met with pt at bedside who has given more choices for TCU as a barrier is her wt. [facility] initiated referral process on [facility]. L-TACH informal referral placed yesterday per conversation Intake Liaison with no IV abx needs pt does not meet criteria. Will move forward with DC plan for TCU, pt is understanding and in agreement with this. 1. [facility] no beds available. 2. [facility], pt is physically does not have the endurance to participate at this level 3. [facility] have not heard back. Additional referrals placed to 1. [facility]- Is concerned about her wt gain while in hospitali this was discussed with bedside RN - May have bed available - unclear at this time, instruction to call [facility] back Am. 2. [facility] -- No barri beds available at this time 3. [facility] has shared room in the LTC unit for Wed vs Thurs. [place] 4. [facility] -Have not heard yet 5. [place] [phone] has a private bed Wed/Thurs This information has been shared with dtr and pt who will discuss tonight and choose a place. Follow in Am Angelina Ablrecht RN, BSN, CTS Care Transitions Team [phone] Anival Hernandez MD - 10/24/2017 9:44 AM CDT Images from the original note were not included. [facility] Hospitalist Progress Note Name: Marzena Evans Date of : 1945 Age: [age] year old Date of admission: 10/18/2017 Primary care provider: Lucero Stevenson Reason for Stay (Diagnosis): Acute rhabdomyolysis Assessment and Plan: Summary of Stay: Marzena Evans is a 72 year old female with past medical history of morbid obesity,prior PE and DVT on Coumadin, CEFERINO, hypertension who had been living independently but was admitted on 10/18/2017 after reportedly falling 3 days prior to admission and had been unable to get up. She was s ubsequently found to have rhabdomyolysis and possible left lower extremity cellulitis. ?? Problem List/Assessment and Plan: ?? 1. Acute rhabdomyolysis: This was due to fall leading to prolonged immobility. She was down on the ground for 3 days prior to admission. She has been hydrated. She had mild transaminitis which is improving. CK was initially 7000 and continues to downtrend.. She has normal renal function. -We will discontinue IV fluids and encourage p.o. fluids. -Encourage mobility and reposition frequently as able. ?? 2. Multiple skin ulcers: Patient has numerous skin ulcers which were present on admission. This is due to her recent immobilization after her fall. Wound nurses following. Continue daily dressing cares. ?? 3. Left lower extremity cellulitis: Patient did have some significant erythema of her left lower extremity. She was started on IV clindamycin in the ER which was continued inpatient. -We will DC IV clindamycin and transition to p.o. -Routine wound cares ?? 4. History of multiple prior DVTs and one PE: Patient reports her last blood clot was about 10 yearsago but she had multiple DVTs prior to that. She had been off her Coumadin for the 3 days prior to admission as she could not get up. Ultrasound was done of her left lower extremity which ruled out a DVT. -Pharmacy consult for Coumadin dosing ?? 5. CEFERINO: CPAP per home settings. ?? 6. Transaminitis: Due to rhabdomyolysis. Improving. Treatment as above. ?? 7. Hypertension: She was on losartan and hydrochlorothiazide prior to admission. These were initially held given obvious dehydration and rhabdomyolysis. Increase metoprolol to 50 mg p.o. twice daily. ?? 8. Generalized weakness: Suspect this is multifactorial. She does have a cellulitis and was significantly dehydrated on admission. She also has morbid obesity and lymphedema which is likely very limiting for her. Continue PT/OT. ?? 9. Hypophosphatemia and hypokalemia: Due to lack of p.o. intake for 3 days prior to admission. Replace per protocol. ?? # Pain Assessment: Current Pain Score 10/22/2017 Patient currently in pain? denies Pain score (0-10) - Pain location - Pain descriptors - Marzena???s pain level was assessed and she currently denies pain. ? DVT Prophylaxis: Warfarin Code Status: Full Code Discharge Dispo: TCU Estimated Disch Date / # of Days until Disch: Plan on tomorrow if uneventful night Interval History (Subjective): feels overall better and tolerating more p.o. Otherwise, no significant pain. Physical Exam: Vital signs: Temp: 97.3 ??F (36.3 ??C) Temp src: Oral BP: 154/54 Heart Rate: 96 Resp: 18 SpO2: 95 % O2 Device: None (Room air) Oxygen Delivery: 2 LPM Weight: (!) 193.7 kg (427 lb) Estimated body mass index is 68.95 kg/(m^2) as calculated from the following: Height as of 01/20/17: 1.676 m (5' 5.98). Weight as of this encounter: 193.7 kg (427 lb). I/O last 3 completed shifts: In: 3465 [P.O.:1450; I.V.:2014] Out: 975 [Urine:975] Vitals: 10/18/17 2115 10/22/17 0505 10/24/17 0606 Weight: (!) 184.6 kg (406 lb 14.4 oz) (!) 187.3 kg (413 lb) (!) 193.7 kg (427 lb) Constitutional: Awake, alert, cooperative, no apparent distress Respiratory: Nl work of breathing. Clear to auscultation bilaterally, no crackles or wheezing Cardiovascular: Regular rate and rhythm, normal S1 and S2, and no murmur noted Abdomen: Obese normal bowel sounds, soft, non-distended, non-tender Skin: Multiple deep tissue puncture injury wounds (back, thigh, entire buttock region, heel). dry totouch Neuro: CN 2-12 intact, no localizing weakness Extremities: No edema, normal range of motion HEENT Normocephalic, atraumatic, normal nasal turbinates; oropharynx clear Neck Supple; nl inspection; trachea midline; no thryomegaly Psychiatric: A+O x3. Normal affect Medications: All current medications were reviewed with changes reflected in problem list. Data: All new lab and imaging data was reviewed. Labs: Recent Labs Lab 10/22/17 0539 10/20/17 0637 10/19/17 0625 10/18/17 2134 WBC 13.1* 14.1* -- 16.5* HGB -- 12.2 -- 13.6 HCT -- 35.5 -- 39.4 MCV -- 92 -- 91 PLT -- 179 172 193 Recent Labs Lab 10/24/17 0758 10/23/17 0722 10/22/17 0539 10/21/17 0545 10/20/17 0637 10/18/17 2134 NA -- 138 139 134 139 -- 137 POTASSIUM 3.6 3.9 3.7 3.8 3.8 < > 3.1* CHLORIDE -- 106 108 108 107 -- 102 CO2 -- 26 24 21 27 -- 28 ANIONGAP -- 6 7 5 5 -- 7 GLC -- 108* 109* 105* 122* -- 125* BUN -- 13 15 19 21 -- 40* CR 0.40* 0.45* 0.44* 0.43* 0.51* -- 0.74 GFRESTIMATED >90 >90 >90 >90 >90 -- 78 GFRESTBLACK >90 >90 >90 >90 >90 -- >90 TOMA -- 7.5* 7.4* 7.6* 7.7* -- 8.7 MAG 1.8 -- 1.9 2.0 2.0 < > 2.2 PHOS 2.9 -- 3.1 2.9 2.7 < > 1.4* PROTTOTAL -- -- 5.3* -- 5.5* -- 7.1 ALBUMIN -- -- 1.5* -- 1.7* -- 2.5* BILITOTAL -- -- 0.6 -- 0.8 -- 1.7* ALKPHOS -- -- 64 -- 64 -- 74 AST -- -- 100* -- 203* -- 275* ALT -- -- 69* -- 67* -- 57* < > = values in this interval not displayed. Recent Labs Lab 10/24/17 0758 10/23/17 0722 10/22/17 0539 CKT 234* 415* 923* Imaging: No results found for this or any previous visit (from the past 24 hour(s)). Anival Hernandez MD [phone] Anival Hernandez MD - 10/23/2017 5:37 PM CDT Images from the original note were not included. [facility] Hospitalist Progress Note Name: Marzena Evans Date of : 1945 Age: [age] year old Date of admission: 10/18/2017 Primary care provider: Lucero Stevenson Reason for Stay (Diagnosis): Acute rhabdomyolysis Assessment and Plan: Summary of Stay: Marzena Evans is a 72 year old female with past medical history of morbid obesity,prior PE and DVT on Coumadin, CEFERINO, hypertension who had been living independently but was admitted on 10/18/2017 after reportedly falling 3 days prior to admission and had been unable to get up. She was s ubsequently found to have rhabdomyolysis and possible left lower extremity cellulitis. ?? Problem List/Assessment and Plan: ?? 1. Acute rhabdomyolysis: This was due to fall leading to prolonged immobility. She was down on the ground for 3 days prior to admission. She has been hydrated. She had mild transaminitis which is improving. CK was initially 7000 and is down to 900. She has normal renal function. Continue with IV fluids. Suspect if CK continues to trend down may be able to stop IVF tomorrow. -Decrease IV fluids to 100 mL/hour and consider stopping once p.o. intake is improved and CK levels continue to trend down. -repeat BMP and CK in the morning ?? 2. Multiple skin ulcers: Patient has numerous skin ulcers which were present on admission. This is due to her recent immobilization after her fall. Wound nurses following. Continue daily dressing cares. ?? 3. Left lower extremity cellulitis: Patient had significant erythema of her left lower extremity. She was started on IV clindamycin in the ER which is been continued. She has leukocytosis but does not have sepsis. -Continue clindamycin, suspect 5-6 day course (currently day 5); will reassess tomorrow and considerstopping antibiotics ?? 4. History of multiple prior DVTs and one PE: Patient reports her last blood clot was about 10 yearsago but she had multiple DVTs prior to that. She had been off her Coumadin for the 3 days prior to admission as she could not get up. Ultrasound was done of her left lower extremity which ruled out a DVT. -Pharmacy consult for Coumadin dosing ?? 5. CEFERINO: CPAP per home settings. ?? 6. Transaminitis: Due to rhabdomyolysis. Improving. Treatment as above. ?? 7. Hypertension: She was on losartan and hydrochlorothiazide prior to admission. These were initially held given obvious dehydration and rhabdomyolysis. Her metoprolol has been continued. Blood pressure currently reasonably controlled. ?? 8. Generalized weakness: Suspect this is multifactorial. She does have a cellulitis and has been significantly dehydrated on admission. She also has morbid obesity and lymphedema which is likely very limiting for her. Physical therapy has been consulted. She will likely need discharge to TCU versus acute rehab. ?? 9. Hypophosphatemia and hypokalemia: Due to lack of p.o. intake for 3 days prior to admission. Replace per protocol. ?? # Pain Assessment: Current Pain Score 10/22/2017 Patient currently in pain? denies Pain score (0-10) - Pain location - Pain descriptors - Marzena???s pain level was assessed and she currently denies pain. ? DVT Prophylaxis: Warfarin Code Status: Full Code Discharge Dispo: TCU vs ARU Estimated Disch Date / # of Days until Disch: 1-2 more days pending improvement of CK and placement Interval History (Subjective): feels overall better but just reports some generalized weakness and myalgias Physical Exam: Vital signs: Temp: 97.8 ??F (36.6 ??C) Temp src: Oral BP: 181/85 Pulse: 95 Heart Rate: 108 Resp: 18 SpO2: 98 % E5Acbtue: None (Room air) Oxygen Delivery: 2 LPM Weight: (!) 187.3 kg (413 lb) Estimated body mass index is 66.69 kg/(m^2) as calculated from the following: Height as of 01/20/17: 1.676 m (5' 5.98). Weight as of this encounter: 187.3 kg (413 lb). I/O last 3 completed shifts: In: 2848 [P.O.:200; I.V.:2648] Out: 1000 [Urine:1000] Vitals: 10/18/17 2115 10/22/17 0505 Weight: (!) 184.6 kg (406 lb 14.4 oz) (!) 187.3 kg (413 lb) Constitutional: Awake, alert, cooperative, no apparent distress Respiratory: Nl work of breathing. Clear to auscultation bilaterally, no crackles or wheezing Cardiovascular: Regular rate and rhythm, normal S1 and S2, and no murmur noted Abdomen: Obese normal bowel sounds, soft, non-distended, non-tender Skin: Multiple deep tissue puncture injury wounds (back, thigh, entire buttock region, heel). dry totouch Neuro: CN 2-12 intact, no localizing weakness Extremities: No edema, normal range of motion HEENT Normocephalic, atraumatic, normal nasal turbinates; oropharynx clear Neck Supple; nl inspection; trachea midline; no thryomegaly Psychiatric: A+O x3. Normal affect Medications: All current medications were reviewed with changes reflected in problem list. Data: All new lab and imaging data was reviewed. Labs: Recent Labs Lab 10/22/17 0539 10/20/17 0637 10/19/17 0625 10/18/17 2134 WBC 13.1* 14.1* -- 16.5* HGB -- 12.2 -- 13.6 HCT -- 35.5 -- 39.4 MCV -- 92 -- 91 PLT -- 179 172 193 Recent Labs Lab 10/23/17 0722 10/22/17 0539 10/21/17 0545 10/20/17 0637 10/18/17 2134 NA 138 139 134 139 -- 137 POTASSIUM 3.9 3.7 3.8 3.8 < > 3.1* CHLORIDE 106 108 108 107 -- 102 CO2 26 24 21 27 -- 28 ANIONGAP 6 7 5 5 -- 7 GLC 108* 109* 105* 122* -- 125* BUN 13 15 19 21 -- 40* CR 0.45* 0.44* 0.43* 0.51* -- 0.74 GFRESTIMATED >90 >90 >90 >90 -- 78 GFRESTBLACK >90 >90 >90 >90 -- >90 TOMA 7.5* 7.4* 7.6* 7.7* -- 8.7 MAG -- 1.9 2.0 2.0 < > 2.2 PHOS -- 3.1 2.9 2.7 < > 1.4* PROTTOTAL -- 5.3* -- 5.5* -- 7.1 ALBUMIN -- 1.5* -- 1.7* -- 2.5* BILITOTAL -- 0.6 -- 0.8 -- 1.7* ALKPHOS -- 64 -- 64 -- 74 AST -- 100* -- 203* -- 275* ALT -- 69* -- 67* -- 57* < > = values in this interval not displayed. Recent Labs Lab 10/23/17 0722 10/22/17 0539 10/21/17 0545 CKT 415* 923* 1729* Imaging: No results found for this or any previous visit (from the past 24 hour(s)). Anival Hernandez MD [phone] Iwona Bowling MD - 10/22/2017 10:29 AM CDT [facility] Hospitalist Progress Note Iwona Bowling MD 10/21/17 Text Page Pager: [phone] (7am-6pm) Reason for Stay (Diagnosis): Fall with inability to get up Assessment and Plan: Summary of Stay: Marzena Evans is a 72 year old female with past medical history of morbid obesity,prior PE and DVT on Coumadin, CEFERINO, hypertension who had been living independently but was admitted on 10/18/2017 after reportedly falling 3 days prior to admission and had been unable to get up. She was s ubsequently found to have rhabdomyolysis and possible left lower extremity cellulitis. Problem List/Assessment and Plan: 1. Acute rhabdomyolysis: This was due to fall leading to prolonged immobility. She was down on the ground for 3 days prior to admission. She has been hydrated. She had mild transaminitis which is improving. CK was initially 7000 and is down to 900. She has normal renal function. Continue with IV fluids. Suspect if CK continues to trend down may be able to stop IVF tomorrow. -Continue IV fluids -repeat BMP and CK in the morning 2. Multiple skin ulcers: Patient has numerous skin ulcers which were present on admission. This is due to her recent immobilization after her fall. Wound nurses following. Continue daily dressing cares. 3. Left lower extremity cellulitis: Patient had significant erythema of her left lower extremity. She was started on IV clindamycin in the ER which is been continued. She has leukocytosis but does not have sepsis. -Continue clindamycin, suspect 5 day course (currently day 4) 4. History of multiple prior DVTs and one PE: Patient reports her last blood clot was about 10 yearsago but she had multiple DVTs prior to that. She had been off her Coumadin for the 3 days prior to admission as she could not get up. Ultrasound was done of her left lower extremity which ruled out a DVT. -Pharmacy consult for Coumadin dosing 5. CEFERINO: CPAP per home settings. 6. Transaminitis: Due to rhabdomyolysis. Improving. Treatment as above. 7. Hypertension: She was on losartan and hydrochlorothiazide prior to admission. These were initially held given obvious dehydration and rhabdomyolysis. Her metoprolol has been continued. Blood pressure currently well controlled. 8. Generalized weakness: Suspect this is multifactorial. She does have a cellulitis and has been significantly dehydrated on admission. She also has morbid obesity and lymphedema which is likely very limiting for her. Physical therapy has been consulted. She will likely need discharge to TCU versus acute rehab. 9. Hypophosphatemia and hypokalemia: Due to lack of p.o. intake for 3 days prior to admission. Replace per protocol. # Pain Assessment: Current Pain Score 10/22/2017 Patient currently in pain? denies Pain score (0-10) - Pain location - Pain descriptors - Marzena???s pain level was assessed and she currently denies pain. DVT Prophylaxis: Warfarin Code Status: Full Code Discharge Dispo: TCU vs ARU Estimated Disch Date / # of Days until Disch: 1-2 more days pending improvement of CK and placement Interval History (Subjective): Patient was seen with her bedside nurse. She is feeling ok. Has protein shake which she likes as sheis struggling with appetite. No nausea, emesis or abdominal pain. Feels slightly SOB at times but this comes and goes. She is unsure if this is worse than baseline. Does have a dry cough at times. Physical Exam: Last Vital Signs: BP 142/62 (BP Location: Right arm) Pulse 90 Temp 98.4 ??F (36.9 ??C) (Oral) Resp 18 Wt (!) 187.3 kg (413 lb) SpO2 96% BMI 66.69 kg/m2 General: Alert, obese, awake, no acute distress. HEENT: Normocephalic and atraumatic, eyes anicteric and without scleral injection, EOMI, face symmetric, MMM. Cardiac: RRR, normal S1, S2. No m/g/r, no LE edema. Pulmonary: Normal chest rise, normal work of breathing. Lungs CTAB without crackles or wheezing. Upper air wheeze (coming from throat and not actual lungs) Abdomen: soft, non-tender, non-distended. Normoactive bowel sounds, no guarding or rebound tenderness. Extremities: no deformities. Warm, well perfused. Skin: Multiple deep tissue puncture injury wounds (back, thigh, entire buttock region, heel). Warm and Dry. Neuro: No focal deficits. Speech clear. Extremely weak, able to move extremities in bed. Psych: Alert and oriented x3. Appropriate affect. Medications: All current medications were reviewed with changes reflected in problem list. Data: All new lab and imaging data was reviewed. Labs: Recent Labs Lab 10/22/17 0539 10/20/17 0637 10/19/17 0625 10/18/17 2134 WBC 13.1* 14.1* -- 16.5* HGB -- 12.2 -- 13.6 HCT -- 35.5 -- 39.4 MCV -- 92 -- 91 PLT -- 179 172 193 Recent Labs Lab 10/22/17 0539 10/21/17 0545 10/20/17 0637 10/19/17 2358 10/19/17 0625 10/18/17 2134 NA 139 134 139 -- -- 137 POTASSIUM 3.7 3.8 3.8 -- 3.4 3.1* CHLORIDE 108 108 107 -- -- 102 CO2 24 21 27 -- -- 28 ANIONGAP 7 5 5 -- -- 7 GLC 109* 105* 122* -- -- 125* BUN 15 19 21 -- -- 40* CR 0.44* 0.43* 0.51* -- -- 0.74 GFRESTIMATED >90 >90 >90 -- -- 78 GFRESTBLACK >90 >90 >90 -- -- >90 TOMA 7.4* 7.6* 7.7* -- -- 8.7 MAG -- 2.0 2.0 -- 2.1 2.2 PHOS -- 2.9 2.7 2.2* 1.8* 1.4* PROTTOTAL 5.3* -- 5.5* -- -- 7.1 ALBUMIN 1.5* -- 1.7* -- -- 2.5* BILITOTAL 0.6 -- 0.8 -- -- 1.7* ALKPHOS 64 -- 64 -- -- 74 AST 100* -- 203* -- -- 275* ALT 69* -- 67* -- -- 57* Recent Labs Lab 10/22/17 0539 10/21/17 0545 10/20/17 0637 CKT 923* 1729* 3010* Imaging: No results found for this or any previous visit (from the past 24 hour(s)). Iwona Bowling MD. Patience Campoverde LSW - 10/21/2017 4:22 PM CDT SW spoke with patient and her daughter. They agreed to have referrals placed at TCU's that could support her weight. SW faxed referrals to [facility]. DAVONTE Wesley [phone] Iwona Bowling MD - 10/21/2017 2:55 PM CDT [facility] Hospitalist Progress Note Iwona Bowling MD 10/21/17 Text Page Pager: [phone] (7am-6pm) Reason for Stay (Diagnosis): Fall with inability to get up Assessment and Plan: Summary of Stay: Marzena Evans is a 72 year old female with past medical history of morbid obesity,prior PE and DVT on Coumadin, CEFERINO, hypertension who had been living independently but was admitted on 10/18/2017 after reportedly falling 3 days prior to admission and had been unable to get up. She was s ubsequently found to have rhabdomyolysis and possible left lower extremity cellulitis. Problem List/Assessment and Plan: 1. Acute rhabdomyolysis: This was due to fall leading to prolonged immobility. She was down on the ground for 3 days prior to admission. She has been hydrated. She had mild transaminitis which is improving. CK was initially 7000 and is down to 1729. She has normal renal function. Continue with IV fluids. -Continue IV fluids -repeat BMP and CK in the morning 2. Multiple skin ulcers: Patient has numerous skin ulcers which were present on admission. This is due to her recent immobilization after her fall. Wound nurses following. Continue daily dressing cares. 3. Left lower extremity cellulitis: Patient had significant erythema of her left lower extremity. She was started on IV clindamycin in the ER which is been continued. She has leukocytosis but does not have sepsis. -Continue clindamycin, suspect 5 day course (currently day 3) 4. History of multiple prior DVTs and one PE: Patient reports her last blood clot was about 10 yearsago but she had multiple DVTs prior to that. She had been off her Coumadin for the 3 days prior to admission as she could not get up. Ultrasound was done of her left lower extremity which ruled out a DVT. -Pharmacy consult for Coumadin dosing 5. CEFERINO: CPAP per home settings. 6. Transaminitis: Due to rhabdomyolysis. Improving. Treatment as above. 7. Hypertension: She was on losartan and hydrochlorothiazide prior to admission. These were initially held given obvious dehydration and rhabdomyolysis. Her metoprolol has been continued. Blood pressure currently well controlled. 8. Generalized weakness: Suspect this is multifactorial. She does have a cellulitis and has been significantly dehydrated on admission. She also has morbid obesity and lymphedema which is likely very limiting for her. Physical therapy has been consulted. She will likely need discharge to TCU versus acute rehab. 9. Hypophosphatemia and hypokalemia: Due to lack of p.o. intake for 3 days prior to admission. Replace per protocol. # Pain Assessment: Current Pain Score 10/21/2017 Patient currently in pain? yes Pain score (0-10) 7 Pain location Buttocks Pain descriptors Sharp Marzena???s pain level was assessed and she currently denies pain. DVT Prophylaxis: Warfarin Code Status: Full Code Discharge Dispo: TCU vs ARU Estimated Disch Date / # of Days until Disch: Suspect several more days until rhabdomyolysis has resolved Interval History (Subjective): Patient was seen with her bedside nurse. She states she is feeling okay. She still feels quite thirsty but this is greatly improved from admission. Her appetite is slowly improving. She thinks that it was low because she really did not have anything to eat or drink for 3 days prior to admission. She is not having significant pain. Denies chest pain, shortness of breath, cough, nausea or vomiting. Physical Exam: Last Vital Signs: BP 142/68 (BP Location: Right arm) Pulse 98 Temp 96.6 ??F (35.9 ??C) (Oral) Resp 20 Wt (!) 184.6 kg (406 lb 14.4 oz) SpO2 91% BMI 65.71 kg/m2 General: Alert, obese, awake, no acute distress. HEENT: Normocephalic and atraumatic, eyes anicteric and without scleral injection, EOMI, face symmetric, MMM. Cardiac: RRR, normal S1, S2. No m/g/r, no LE edema. Pulmonary: Normal chest rise, normal work of breathing. Lungs CTAB without crackles or wheezing. Abdomen: soft, non-tender, non-distended. Normoactive bowel sounds, no guarding or rebound tenderness. Extremities: no deformities. Warm, well perfused. Skin: Multiple deep tissue puncture injury wounds (back, thigh, entire buttock region, heel). Warm and Dry. Neuro: No focal deficits. Speech clear. Extremely weak, able to move extremities in bed. Psych: Alert and oriented x3. Appropriate affect. Medications: All current medications were reviewed with changes reflected in problem list. Data: All new lab and imaging data was reviewed. Labs: Recent Labs Lab 10/20/17 0610/19/1762410/18/174 WBC 14.1* -- 16.5* HGB 12.2 -- 13.6 HCT 35.5 -- 39.4 MCV 92 -- 91 PLT 179 172 193 Recent Labs Lab 10/21/17 0545 10/20/17 0637 10/19/17 2358 10/19/1762410/18/174 NA 134 139 -- -- 137 POTASSIUM 3.8 3.8 -- 3.4 3.1* CHLORIDE 108 107 -- -- 102 CO2 21 27 -- -- 28 ANIONGAP 5 5 -- -- 7 GLC 105* 122* -- -- 125* BUN 19 21 -- -- 40* CR 0.43* 0.51* -- -- 0.74 GFRESTIMATED >90 >90 -- -- 78 GFRESTBLACK >90 >90 -- -- >90 TOMA 7.6* 7.7* -- -- 8.7 MAG 2.0 2.0 -- 2.1 2.2 PHOS 2.9 2.7 2.2* 1.8* 1.4* PROTTOTAL -- 5.5* -- -- 7.1 ALBUMIN -- 1.7* -- -- 2.5* BILITOTAL -- 0.8 -- -- 1.7* ALKPHOS -- 64 -- -- 74 AST -- 203* -- -- 275* ALT -- 67* -- -- 57* Recent Labs Lab 10/21/1745 10/20/17 0637 10/18/17 2134 CKT 1729* 3010* 7030* Imaging: Recent Results (from the past 24 hour(s)) CT Head w/o Contrast Narrative CT OF THE HEAD WITHOUT CONTRAST 10/20/2017 3:57 PM COMPARISON: None. HISTORY: Atrial fibrillation with earlier toe numbness, recent fall, rule out CVA. TECHNIQUE: [address] images [...] to patient size, or iterative reconstruction technique. MD Iwona FREED MD. Gilles Patience Marion ASSOCIATE PROFESSOR OF ARCHAEOLOGY - 10/21/2017 11:39 AM CDT Care Transition Initial Assessment - SW Reason For Consult: discharge planning Met with: Patient Active Problems: Rhabdomyolysis DATA Lives With: alone Living Arrangements: house Description of Support System: Supportive, Involved Who is your support system?: Children, Sibling(s) Support Assessment: Adequate family and caregiver support, Adequate social supports. Identified issues/concerns regarding health management: Patient was brought in via ambulance. In order to get the stretcher through the stairs the banister needed to be removed. She says her family is working on replacing it. Quality Of Family Relationships: supportive, helpful, involved Transportation Available: car ASSESSMENT Cognitive Status: awake, alert and oriented Concerns to be addressed: Patient lives alone. At this time therapy is recommending a TCU or possible an Acute Rehab. Referral was placed to [facility]. [facility] called and said at this time her activity level is poor but they would keep on eye on it since she isn't scheduled to d ischarge until Monday/Monday. They said she does meet the medical complexity. Met with patient to discuss need for senior care facility at discharge. The patient was given a list of senior care facilities which includes the medicare.gov website for a comprehensive list of senior care facilities. SW did let her know her choices were limited due to her weight. She would like to return homebut knows things are a mess at her home and that she would probably need a TCU. Patient will review packet and SW will come back later to get choices. PLAN Financial costs for the patient includes none . Patient given options and choices for discharge yes . Patient/family is agreeable to the plan? Yes: Patient Goals and Preferences: return home but understands that probably;y isn't going to happen right way. Patient anticipates discharging to: TBD . DAVONTE Wesley [phone] Halima Liang, PT - 10/20/2017 5:24 PM CDT 10/20/17 1403 Quick Adds Type of Visit Initial PT Evaluation Living Environment Lives With alone Living Arrangements house Home Accessibility stairs to enter home;stairs within home;tub/shower is not walk in;bed and bath are not on the first floor Number of Stairs to Enter Home 2 Number of Stairs Within Home 12 Stair Railings at Home inside, present on left side Transportation Available car Living Environment Comment Pt requires access to upper level for main bath and bedroom Self-Care Dominant Hand right Usual Activity Tolerance moderate Current Activity Tolerance poor Regular Exercise no Equipment Currently Used at Home cane, straight Functional Level Prior Ambulation 1-->assistive equipment Transferring 0-->independent Toileting 0-->independent Bathing 0-->independent Dressing 0-->independent Eating 0-->independent Communication 0-->understands/communicates without difficulty Fall history within last six months yes Number of times patient has fallen within last six months 1 Which of the above functional risks had a recent onset or change? ambulation;transferring;toileting;bathing;dressing General Information Onset of Illness/Injury or Date of Surgery - Date 10/18/17 Referring Physician Chele Newell MD Patient/Family Goals Statement Return home eventually, i'm in no gomes Pertinent History of Current Problem (include personal factors and/or comorbidities that impact the POC) Marzena Evans is a 72 year old female history of morbid obesity prior PE/DVT on chronic Coumadin, CEFERINO on appliance, hypertension, living independently at home who was brought in here after she was found laying on the floor and reportedly had a fall 3 days ago. She had an underlying rhabdomyolysiswith possible left lower extremity cellulitis Precautions/Limitations fall precautions Weight-Bearing Status - LLE full weight-bearing Weight-Bearing Status - RLE full weight-bearing General Observations Pt supine upon initiation. Agreeable to session. Cognitive Status Examination Orientation orientation to person, place and time Level of Consciousness alert Follows Commands and Answers Questions 100% of the time Personal Safety and Judgment intact Memory intact Pain Assessment Patient Currently in Pain Yes, see Vital Sign flowsheet Integumentary/Edema Integumentary/Edema Comments Redness and edema noted to B LE Posture Posture Forward head position;Protracted shoulders Range of Motion (ROM) ROM Comment LE AROM limited secondary to strength, PROM WNL Strength Strength Comments Unable to SLR, fair quad set Bed Mobility Bed Mobility Comments sit<>supine attempted, but pt unable to complete Transfer Skills Transfer Comments unable to complete at this time Gait Gait Comments unable to complete at this time Sensory Examination Sensory Perception no deficits were identified Coordination Coordination no deficits were identified Muscle Tone Muscle Tone no deficits were identified General Therapy Interventions Planned Therapy Interventions bed mobility training;gait training;ROM;strengthening;stretching;transfer training;home program guidelines;progressive activity/exercise Clinical Impression Criteria for Skilled Therapeutic Intervention yes, treatment indicated PT Diagnosis Impaired functional mobility Influenced by the following impairments Pain, weakness, edema, wounds Functional limitations due to impairments Difficulty with bed mobility, transfers, ambulation, stairs Clinical Presentation Evolving/Changing Clinical Presentation Rationale Pt with multiple body systems involved, sent down for potential CVA at end of PT session Clinical Decision Making (Complexity) Moderate complexity Therapy Frequency` daily Predicted Duration of Therapy Intervention (days/wks) 5 days Anticipated Equipment Needs at Discharge walker Anticipated Discharge Disposition Transitional Care Facility Risk & Benefits of therapy have been explained Yes Patient, Family & other staff in agreement with plan of care Yes [facility] AM-PAC TM 6 Clicks ?? 2016, Trustees of [facility], under license to [email or web address]. All rights reserved. 6 Clicks Short Forms Basic Mobility Inpatient Short Form [facility] AM-PAC??? 6 Clicks V.2 Basic Mobility Inpatient Short Form 1. Turning from your back to your side while in a flat bed without using bedrails? 2 - A Lot 2. Moving from lying on your back to sitting on the side of a flat bed without using bedrails? 1 - Total 3. Moving to and from a bed to a chair (including a wheelchair)? 1 - Total 4. Standing up from a chair using your arms (e.g., wheelchair, or bedside chair)? 1 - Total 5. To walk in hospital room? 1 - Total 6. Climbing 3-5 steps with a railing? 1 - Total Basic Mobility Raw Score (Score out of 24.Lower scores equate to lower levels of function) 7 Total Evaluation Time Total Evaluation Time (Minutes) 8 Maggie Mahajan OT - 10/20/2017 4:47 PM CDT 10/20/17 0952 Quick Adds Type of Visit Initial Occupational Therapy Evaluation Living Environment Lives With alone Living Arrangements house (2 story town home) Home Accessibility stairs to enter home;stairs within home;tub/shower is not walk in;bed and bath are not on the first floor (1/2 bath on main level) Number of Stairs to Enter Home 2 Number of Stairs Within Home 12 (full flight to upper level) Transportation Available car Living Environment Comment Patient has to access upper level for main bath and bedroom Self-Care Dominant Hand right Usual Activity Tolerance fair Regular Exercise no Equipment Currently Used at Home cane, straight Functional Level Prior Ambulation 1-->assistive equipment (used hurry cane in community, at times in home, not frequent) Transferring 0-->independent Toileting 0-->independent Bathing 0-->independent Dressing 0-->independent Eating 0-->independent Communication 0-->understands/communicates without difficulty Swallowing 0-->swallows foods/liquids without difficulty Cognition 0 - no cognition issues reported Fall history within last six months yes Number of times patient has fallen within last six months 1 Prior Functional Level Comment Patient was able to manage basic ADL's and basic IADl's- deeper cleaning requiring bending and stooping were becoming more difficult. Patient repors she wears lymphedema garments daily. General Information Onset of Illness/Injury or Date of Surgery - Date 10/18/[address] Newell Patient/Family Goals Statement not stated Additional Occupational Profile Info/Pertinent History of Current Problem Patient is a 72 year old female, with history of PE, lymphedema, hypertension, and on Coumadin, who presents to the ED for evaluation of fall. Per nurse's report, EMS noted the patient's residence seems like she has a hoarding habit. They suspect failure to thrive based on her living conditions. She has not been taking her hypertensive medications. She had an IV placed and was provided 400mLs of fluid by EMS. Her blood glucosewas 98. Upon evaluation, the patient reports she fell 3 nights ago off the toilet onto her buttock. She was unable to get up herself and has been minimally hydrating with water from the sink. Her last drink was today. The patient notes she was finally able to reach a phone today and call 911. The patient reports her leg redness began approximately 1.5- 2 weeks ago and has progressively worsened. The patient denies any loss of consciousness, head trauma, injuries, pain, cough, shortness of breath, chest pain, or dysuria. She is clinically very dehydrated, has some component of rhabdomyolysis with CK of over 7000 and also was found to have a left lower extremity cellulitis. She is being admitted for IV fluids, IV clindamycin and close monitoring of her renal function given concern for rhabdo. She isextremely weak and morbidly obese. Severe wound issues being addressed by C RN. Precautions/Limitations fall precautions General Observations patient was in bed, per RN patient has been using lift for transfers. Cognitive Status Examination Orientation orientation to person, place and time Level of Consciousness alert Able to Follow Commands WNL/WFL Cognitive Comment patient is slow to respond to questions, needs time to answer questions thoroughly, at times appears to loose train of thought and prompts needed to continue. Monitor and assess as needed Visual Perception Visual Perception Wears glasses Integumentary/Edema Integumentary/Edema Comments patient has chronic lymphedema in B LE's- has been managed through edema garments and therapy in the fall Range of Motion (ROM) ROM Quick Adds No deficits were identified Strength Strength Comments general weakness noted, poor activity tolerance noted throughout session Hand Strength Hand Strength Comments weaker hand grasp B, but functional Muscle Tone Assessment Muscle Tone Quick Adds No deficits were identified Coordination Upper Extremity Coordination No deficits were identified Mobility Bed Mobility Comments limited bed mobility for rolling side to side Transfer Skills Transfer Comments unable- lift transfers Eating/Self Feeding Level of [place]: Eating independent Instrumental Activities of Daily Living (IADL) Previous Responsibilities meal prep;housekeeping;laundry;shopping;medication management;finances;driving Activities of Daily Living Analysis Impairments Contributing to Impaired Activities of Daily Living balance impaired;cognition impaired;flexibility decreased;ROM decreased;strength decreased General Therapy Interventions Planned Therapy Interventions ADL retraining;progressive activity/exercise;transfer training;strengthening;ROM Clinical Impression Criteria for Skilled Therapeutic Interventions Met yes, treatment indicated OT Diagnosis decreased ADL's Influenced by the following impairments balance impaired;cognition impaired;flexibility decreased;ROM decreased;strength decreased Assessment of Occupational Performance 5 or more Performance Deficits Identified Performance Deficits decreased ADL's and IADl's- dsg, toileting, bathing, functional mobility and transfers, 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 Yes Patient, Family & other staff in agreement with plan of care Yes [facility] AM-PAC TM 6 Clicks ?? 2016, Trustees of [facility], under license to [email or web address]. All rights reserved. 6 Clicks Short Forms Daily Activity Inpatient Short Form [facility]??? 6 Clicks Daily Activity Inpatient Short Form 1. Putting on and taking off regular lower body clothing? 1 - Total 2. Bathing (including washing, rinsing, drying)? 1 - Total 3. Toileting, which includes using toilet, bedpan or urinal? 1 - Total 4. Putting on and taking off regular upper body clothing? 2 - A Lot 5. Taking care of personal grooming such as brushing teeth? 2 - A Lot 6. Eating meals? 4 - None Daily Activity Raw Score (Score out of 24.Lower scores equate to lower levels of function) 11 Total Evaluation Time Total Evaluation Time (Minutes) 20 Angelina Albrecht RN - 10/20/2017 3:06 PM CDT Care Transitions Team: Following for CC, discharge planning, and disposition. SWS/CM aware of consult per chart review pt lives alone in hoarder type environment, she is Obese [id number], mx wounds --Complex SWS/CM is anticipating needs at discharge Formal assessment to follow Angelina Albrecht RN, BSN, CTS Care Transitions Team [phone] Bharath Villanueva MD - 10/20/2017 12:26 PM CDT [facility] Hospitalist Progress Note Bharath Villanueva MD, 10/20/2017 (Text Page) Reason for Stay (Diagnosis): Rhabdomyolysis Assessment and Plan: Summary of Stay: Marzena Evans is a 72 year old female history of morbid obesity prior PE/DVT on chronic Coumadin, CEFERINO on appliance, hypertension, living independently at home who was brought in here after she was found laying on the floor and reportedly had a fall 3 days ago. She had an underlying rh abdomyolysis with possible left lower extremity cellulitis. \ Problem List: 1. Acute rhabdomyolysis most likely secondary to recent fall event and prolonged. Down on the groundfor at least 3 days 2. Multiple skin ulcers secondary to recent immobilization and fall event 3. Suspected left lower extremity cellulitis 4. Physical deconditioning with recent fall event 5. Morbid obesity with a BMI of 65 6. Story of prior DVT and pulmonary embolism currently with subtherapeutic INR likely secondary to missed dosing when she was on the ground for at least 3 days duration 7. CEFERINO on appliance 8. Elevated LFTs suspected secondary to recent rhabdomyolysis 9. History of hypertension 10. Atrial fibrillation newly seen, suspected from ongoing multiple electrolyte derangements and recent rhabdomyolysis, dehydration, lack of oral intake as well.- may increase BB if HR still elevated and Bp permitting Ms. Ovalles will still be requiring inpatient hospitalization as she remains high risk for clinical deterioration. Aggressive IV fluid support but with improving rhabdomyolysis and increasing fluid intake will be able to decrease rate. Monitor kidney function and electrolytes. Aggressive supplementation per protocol. Regular diet with no restrictions. Trend LFTs and creatinine kinase. She remained on beta blockers given her history of hypertension and now with appears to be paroxysmal A. fib. Blood pressure parameters given for her other home medications (antihypertensive). Echo reviewed and reassuring. Resume warfarin to keep INR between 2-3. She is currently have a subtherapeutic INR given lack of dosing for the past 3 days. Will bridge with Lovenox for now if feasible as her weight might be the limiting factor here. Now with INR almost therapeutic. Stop lovenox. She is requiring physical/occupational therapy evaluation and social work input and evaluation for discharge planning. Appreciate FOOD SERVICE ORDER CLERK input regarding earlier [facility] nurse concerns about vaginal mass. It was determined to be her labia minor with deep tissue injury. DVT Prophylaxis: Warfarin Code Status: Full Code Discharge Dispo: Be determined Estimated Disch Date / # of Days until Disch: Need at least 2 more days of hospitalization Interval History (Subjective): Continuing care today. Seen and examined. Chart reviewed. Ms. Ovalles is more interactive today. She is getting nursing care with wound care and skin care. No reported nausea/vomiting. Still with low oral intake. Remained afebrile. Denies any shortness of breath, no chest pain. # Pain Assessment: Current Pain Score 10/20/2017 Patient currently in pain? denies Pain score (0-10) - Marzena???s pain level was assessed and she currently denies pain. Physical Exam: Last Vital Signs: BP 115/57 (BP Location: Left arm) Pulse 86 Temp 98.5 ??F (36.9 ??C) (Oral) Resp 22 Wt (!) 184.6 kg (406 lb 14.4 oz) SpO2 92% BMI 65.71 kg/m2 I/O last 3 completed shifts: In: 3319 [P.O.:780; I.V.:2539] Out: 1500 [Urine:1500] Wt Readings from Last 1 Encounters: 10/18/17 (!) 184.6 kg (406 lb 14.4 oz) Vitals: 10/18/17 2115 Weight: (!) 184.6 kg (406 lb 14.4 oz) Constitutional: Awake, alert, cooperative, no apparent distress, morbid obesity Respiratory: Clear to auscultation bilaterally, no crackles or wheezing Cardiovascular: Regular rate and rhythm, normal S1 and S2, and no murmur noted Abdomen: Normal bowel sounds, soft, non-distended, non-tender Skin: No rashes, no cyanosis, dry to touch Neuro: Alert and oriented x3, no weakness, spontaneous and coherent speech Extremities: Pitting edema bilateral lower extremity +2 edema, normal range of motion, dressing in place left leg no bleeding Multiple skin ulcers, see woc description Other(s): Euthymic mood, not agitated All other systems: Negative Medications: All current medications were reviewed with changes reflected in problem list. Data: All new lab and imaging data was reviewed. Labs: No results for input(s): CULT in the last 168 hours. Recent Labs Lab 10/20/1763610/19/1762410/18/17 213 NA 139 -- 137 POTASSIUM 3.8 3.4 3.1* CHLORIDE 107 -- 102 CO2 27 -- 28 ANIONGAP 5 -- 7 GLC 122* -- 125* BUN 21 -- 40* CR 0.51* -- 0.74 GFRESTIMATED >90 -- 78 GFRESTBLACK >90 -- >90 TOMA 7.7* -- 8.7 Recent Labs Lab 10/20/1763610/19/1762410/18/17 213 WBC 14.1* -- 16.5* HGB 12.2 -- 13.6 HCT 35.5 -- 39.4 MCV 92 -- 91 PLT 179 172 193 Recent Labs Lab 10/20/1763610/18/17 213 GLC 122* 125* Recent Labs Lab 10/18/17 2134 TROPI <0.015 Recent Labs Lab 10/18/17 2218 COLOR Marv APPEARANCE Slightly Cloudy URINEGLC Negative URINEBILI Negative URINEKETONE 5* SG 1.025 UBLD Large* URINEPH 5.0 PROTEIN 100* NITRITE Negative LEUKEST Negative RBCU 2 WBCU 3 Imaging: Results for orders placed or performed during the hospital encounter of 10/18/17 US Lower Extremity Venous Duplex Left Port Narrative VENOUS ULTRASOUND LEFT LEG 10/19/2017 3:05 AM HISTORY: History of numerous DVTs, off coumadin for 3-4 days. Now with left lower extremity cellulitis vs question of clot. COMPARISON: None. FINDINGS: Examination of the deep veins with graded compression and color flow Doppler with spectral wave form analysis shows no evidence of thrombus in the left common femoral vein, femoral vein, popliteal vein or calf veins. The right common femoral vein was evaluated for comparison and is normal. There is a fluid collection with multiple scattered internal septations measuring 9.5 x 7.1 x 6.0 cm. Impression IMPRESSION: 1. No deep vein thrombosis in the left lower extremity. 2. Fluid collection in the left popliteal fossa. May represent a postoperative seroma or Lopez's cyst. YANET DE JESUS DO Antonia Palmer RN - 10/20/2017 11:30 AM CDT Focus: labial wound D: [facility] visit with FOOD SERVICE ORDER CLERK MD to assess vaginal wound, determined to be Left Labial Minoris, purple, slightly firm, no complaint of pain, light yellow drainage. Will continue with Critic aid paste to this area. Deep tissue injury to Left labia minora New evolving Pressure injury found to Left plantar 2nd toe 1x1cm intact deep purple, ball of foot islightening to non blanchable erythema with area medial to center that continues to be dark purple/ maroon color. Deep tissue injury present on admission. I: exam with MD, discussion POc with MD, pt, and RN; update orders A/P: Deep tissue pressure injury to left Labia minoris, and Left plantar 2nd toe, present on admission. Multiple scattered wounds due to pressure from fall DIRECTOR OPERATIONS BROADCAST continue to evolve and more may develop overthe next 48 hours. Staff have orders for POC and products are in room. Antonia Palmer RN - 10/19/2017 3:51 PM CDT [facility] Nurse Inpatient Adult Pressure Injury (PI) Wound Assessment Assessment of PI(s) on pt's: Multiple areas Data: Patient History: per MD note(s): 72 year old female history of morbid obesity prior PE/DVT on chronic Coumadin, CEFERINO on appliance, hypertension, living independently at home who was brought in here after she was found laying on the floor and reportedly had a fall 3 days ago. She had an underlying rhabdomyolysis with possible left lower extremity cellulitis. ?? Current mattress: Bariatric Pulsate Current pressure relieving devices: Mepilex dressing and Pillows ?? Moisture Management: Urinary Catheter ?? Catheter secured? No ?? Current Diet / Nutrition: ? Active Diet Order Combination Diet Regular Diet Adult ?? Randall Assessment and sub scores: Randall Score Av Min: 13 Max: 15 Labs: Recent Labs Lab Test 10/19/17 0625 10/18/17 2134 01/03/17 1158 ALBUMIN -- 2.5* -- -- HGB -- 13.6 -- 14.0 INR 1.48* -- < > -- WBC -- 16.5* -- 4.7 A1C -- -- -- 5.2 < > = values in this interval not displayed. Pressure Injury Assessment (location) Left side of pt Wound History: Multiple deep tissue pressure injury present on admission after extended fall on floor in bathroom at home; pt reports that she sat on the bathroom floor resting against the vanity and her left foot was jammed against the bathtub. ?? Specific Dimensions (length x width x depth, in cm) : ?? 1. Left Upper Back: 2x6cm non blanching erythema- with superficial erosion of epidermis- Stage 2 ?? 2. Left inner groin fold: 7x11cm deep purple- DTPI ?? 3. Left Inner THigh: 5x5cm deep purple intact - DTPI; Groin/ thigh: periwound has denuded skin- Stage 2 ?? 4. Left Posterior IT/ Entire Buttocks has significant damage; suspect may develop into Stage 4 wound has multiple issues: Black dark dry thick necrotic tissue: 8x15cm with moist yellow slough extending towards rectum 3x6cm for a total area of [id number], Periwound extends to the ENTIRE buttocks deep non blanchable erythema/ maroon skin with scattered open areas- DPTI/ Unstageable evolving ?? 5. Left Buttock Crease: fold intact and purple- DTPI ?? 6. Left Posterior lower Thigh: 8 x 8 intact deep purple- DTPI ?? 7. Left Anterior LE: 8x1 x0.1cm moist pink/ white tissue; Periwound erythema consistent with cellulitis vs Stage 2 ?? 8. Left Posterior LE: entire upper calf is deep purple; firm induration, consistent with cellulitis- DTPI ?? 9. Left Lateral Heel: 3x3cm deep maroon intact skin- DTPI ?? 10. Left Plantar (Ball of Foot): 3.5 x 6cm deep purple thick skin- DTPI ?? Odor: offensive to groin and buttocks, ?? Pain: minimal , tender Pressure Injury Assessment (location): Right side of pt Wound History: See above; Present on admission ?? Specific Dimensions (length x width x depth, in cm) : ?? 11. RIght Buttocks: scattered superficial bruised intact skin, deep purple- DTPI ?? 12. Right Hip: Irregular shaped wound, appears like 3 long scratch marcum of deep maroon/ purple with 10x 15 x 0.1cm blistered area of partial serous intact skin and unroofed blistered open pink moist dermis; small serous drainage- Evolving DTPI ?? 13. Right Posterior Upper Thigh: Linear line across posterior thigh; 1x 15cm intact deep purple skin- DTPI ?? 14. Right IT: 5 x 10cm intact deep purple skin- DTPI ?? Odor: offensive to groin and buttocks ?? Pain: minimal , tender when cleansed Wound Assessment: Perineal area Wound History: Extremely difficult to visualize the area due to heavy thigh folds, ?? Specific Dimensions (length x width x depth, in cm) : Vagina has large firm appendage of unknown tissue source, deep purple, odorous, does not appear consistent with labia, unknown if this is a prolapse uterus or clitoris, painful for pt when touched ?? Drainage: Amount: light, Color: yellow ?? Odor: strong and offensive ?? Pain: moderate , miserable Intervention: ?? Patient's chart evaluated. ?? Randall Interventions: Current Randall Interventions and Care Plan reviewed and updated, appropriate at this time. ?? Wound was assessed. Wound Care: was done: Removal of existing dressings, Visual inspection ?? Cleansing with Tanna cleanse and Application of topical Critic aid paste and re-application of clean dressing Mepilex to some areas that are open ?? Orders Written and discussed with Dr Villanueva ?? Supplies ordered: Triad paste and Stoma powder, placed at the bedside, discussed with RN, discussed with patient and concessions manager and MD ?? Discussed plan of care with Patient, Nurse and Physician Assessment: ?? Multiple significant Pressure Injuries after fall at home and sitting on hard floor for 3 days, see above for stage; all present on admission. ?? Wounds will continue to evolve and actually more may develop as DTPI continue to develop and evolve 3 days after pressure is relieved. ?? Status: wound initial assessment and evolving, Symptomatic ?? As wounds evolve will need to involve surgery, plastic surgery, and Podiatry for wound care ?? Pt will need assisted care to heal wounds ?? Cellulitis to LLE shows significant infection, induration and purple tissue with open wound to LLE anterior. Foot has scattered red pin dots, bilateral feet are calloused and dry, fungal toenails. ?? Unknown tissue/ growth in vagina, odorous, painful, creamy yellow drainage. Plan: ?? Nursing to notify the Provider(s) and re-consult the [facility] Nurse if wound(s) deteriorate(s)or if the wound care plan needs reevaluation. ?? Plan for wound care to wound located on Buttocks: BID ?? 1. Gently wipe skin clean with MicroKlenz spray, pat dry BID for assessment ?? 2. If pt incontinent: cleanse groin/ klever/ rectal area using Tanna cleanse and dab stool away ?? 3. Dust any OPEN skin with Stoma powder ?? 4. Apply TRIAD paste to black/ yellow/ Open ulcerations; cover with ABD ?? 5. Apply Critic aid paste to all other areas 6. Pressure Injury prevention.: PIP ACTIVITY MEASURES: If pt is refusing to turn or reposition they must be educated on the potential injury from not off loading pressure. Then this educated refusal needs to be documented as an educated refusal to turn/reposition and document if alert, etc. BED: Reposition side to side every 1-2 hours when awake. Keep heels elevated on pillows As able keep HOB below 30 degrees Bariatric Pulsate specialty mattress NOTE: If pt is refusing to turn or reposition they must be educated on the potential injury from notoffloading pressure. Then this educated refusal needs to be documented as an educated refusal to turn/ reposition and document if alert, etc. Additionally please notify MD and charge nurse of refusal(s). ? Wound care to Open wounds: Every other day ?? 1. Cleanse with MicroKlenz spray and pat dry. Cover with Mepilex and date [facility] Nurse will return: PRN/ Weekly Bharath Villanueva MD - 10/19/2017 1:24 PM CDT [facility] Hospitalist Progress Note Bharath Villanueva MD, MD 10/19/2017 (Text Page) Reason for Stay (Diagnosis): Rhabdomyolysis Assessment and Plan: Summary of Stay: Marzena Evans is a 72 year old female history of morbid obesity prior PE/DVT on chronic Coumadin, CEFERINO on appliance, hypertension, living independently at home who was brought in here after she was found laying on the floor and reportedly had a fall 3 days ago. She had an underlying rh abdomyolysis with possible left lower extremity cellulitis. \ Problem List: 1. Acute rhabdomyolysis most likely secondary to recent fall event and prolonged. Down on the ground. 2. Suspected left lower extremity cellulitis 3. Physical deconditioning with recent fall event 4. Morbid obesity with a BMI of 65 5. 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 CEFERINO on appliance 7. Elevated LFTs suspected secondary to recent rhabdomyolysis 8. History of hypertension 9. Atrial fibrillation newly seen, suspected from ongoing multiple electrolyte derangements and recent rhabdomyolysis, dehydration, lack of oral intake as well. Ms. Ovalles will still be requiring inpatient hospitalization as she remains high risk for clinical deterioration. Aggressive IV fluid support for now. Monitor kidney function and electrolytes. Aggressive supplementation per protocol. Regular diet with no restrictions. Trend LFTs and creatinine kinase. She remained on beta blockers given her history of hypertension and now with appears to be paroxysmal A. fib. Blood pressure parameters given for her other home medications (antihypertensive) Resume warfarin to keep INR between 2-3. She is currently have a subtherapeutic INR given lack of dosing for the past 3 days. Will bridge with Lovenox for now if feasible as her weight might be the limiting factor here. If not possible then will initiate heparin IV for now. She is requiring physical/occupational therapy evaluation and social work input and evaluation for discharge planning. Remained on IV antibiotics for presumed left lower extremity cellulitis. Cultures be closely monitored and infection markers well. Dietitian input requested given her morbid obesity state. Addendum: I was informed by the wound care nurse regarding multiple pressure ulcers on several locations. Concerns about vaginal mass protrusion that was tender and appears raw. Will ask for FOOD SERVICE ORDER CLERK evaluation with this. Possible General surgery evaluation if needing for her multple ulcers if needing debridement DVT Prophylaxis: Enoxaparin (Lovenox) SQ and Warfarin Code Status: Full Code Discharge Dispo: Be determined Estimated Disch Date / # of Days until Disch: Need at least 2 more days of hospitalization Interval History (Subjective): Assume care today. Seen and examined. Chart reviewed. Ms. Ovalles is currently resting in bed and not in any distress. She denies any ongoing abdominal pain, chest pain, shortness of breath, palpitations. No reported mental status changes. Remained afebrile. She had some nausea earlier but no vomiting. Still with less appetite. She is awake alert, conversant, pleasant and following simple cues. # Pain Assessment: Current Pain Score 10/19/2017 Patient currently in pain? denies Pain score (0-10) - Marzena???s pain level was assessed and she currently denies pain. Physical Exam: Last Vital Signs: BP (!) 83/34 Pulse 86 Temp 98.5 ??F (36.9 ??C) (Oral) Resp 24 Wt (!) 184.6 kg (406 lb 14.4 oz) SpO2 94% BMI 65.71 kg/m2 I/O last 3 completed shifts: In: 436 [I.V.:436] Out: 450 [Urine:450] Wt Readings from Last 1 Encounters: 10/18/17 (!) 184.6 kg (406 lb 14.4 oz) Vitals: 10/18/17 2115 Weight: (!) 184.6 kg (406 lb 14.4 oz) Constitutional: Awake, alert, cooperative, no apparent distress, morbid obesity Respiratory: Clear to auscultation bilaterally, no crackles or wheezing Cardiovascular: Regular rate and rhythm, normal S1 and S2, and no murmur noted Abdomen: Normal bowel sounds, soft, non-distended, non-tender Skin: No rashes, no cyanosis, dry to touch Neuro: Alert and oriented x3, no weakness, spontaneous and coherent speech Extremities: Pitting edema bilateral lower extremity +2 edema, normal range of motion, dressing in place left leg no bleeding Other(s): Euthymic mood, not agitated All other systems: Negative Medications: All current medications were reviewed with changes reflected in problem list. Data: All new lab and imaging data was reviewed. Labs: No results for input(s): CULT in the last 168 hours. Recent Labs Lab 10/19/1762410/18/172133 NA -- 137 POTASSIUM 3.4 3.1* CHLORIDE -- 102 CO2 -- 28 ANIONGAP -- 7 GLC -- 125* BUN -- 40* CR -- 0.74 GFRESTIMATED -- 78 GFRESTBLACK -- >90 TOMA -- 8.7 Recent Labs Lab 10/19/1762410/18/172133 WBC -- 16.5* HGB -- 13.6 HCT -- 39.4 MCV -- 91 PLT 172 193 Recent Labs Lab 10/18/172133 GLC 125* Recent Labs Lab 10/18/172133 TROPI <0.015 Recent Labs Lab 10/18/172217 COLOR Marv APPEARANCE Slightly Cloudy URINEGLC Negative URINEBILI Negative URINEKETONE 5* SG 1.025 UBLD Large* URINEPH 5.0 PROTEIN 100* NITRITE Negative LEUKEST Negative RBCU 2 WBCU 3 Imaging: Results for orders placed or performed during the hospital encounter of 10/18/17 US Lower Extremity Venous Duplex Left Port Narrative VENOUS ULTRASOUND LEFT LEG 10/19/2017 3:05 AM HISTORY: History of numerous DVTs, off coumadin for 3-4 days. Now with left lower extremity cellulitis vs question of clot. COMPARISON: None. FINDINGS: Examination of the deep veins with graded compression and color flow Doppler with spectral wave form analysis shows no evidence of thrombus in the left common femoral vein, femoral vein, popliteal vein or calf veins. The right common femoral vein was evaluated for comparison and is normal. There is a fluid collection with multiple scattered internal septations measuring 9.5 x 7.1 x 6.0 cm. Impression IMPRESSION: 1. No deep vein thrombosis in the left lower extremity. 2. Fluid collection in the left popliteal fossa. May represent a postoperative seroma or Lopez's cyst. YANET DE JESUS DO Reji Dickerson MD - 10/19/2017 7:04 AM CDT Was called for A. Fib. This appears to be new. Heart rate is been 103-110. Patient is already on Coumadin for history of DVT/PE. I ordered echocardiogram. I ordered as needed IV metoprolol for rate control. documented in this encounter H&P Notes Chele Newell MD - 10/18/2017 10:54 PM CDT [facility] Hospitalist Admission Note Name: Marzena Evans Date of : 1945 Age: [age] year old Date of admission: 10/18/2017 Primary care provider: Lucero Stevenson Chief Complaint: rhabdomyolysis Marzena Evans is a 72 year old female with PMH including morbid obesity, hx of remote PE/DVT normally on coumadin, HTN, CEFERINO on cpap who presents with weakness and found down on the ground after three days. She is clinically very dehydrated, has some component of rhabdomyolysis with CK of over 7000 and also was found to have a left lower extremity cellulitis. She is being admitted for IV fluids, IV clindamycin and close monitoring of her renal function given concern for rhabdo. She is extremely weakand morbidly obese and I do suspect that she will require physical therapy evaluation and most likely at least a transitional care unit after leaving the hospital Assessment and Plan: 1. Suspected rhabdomyolysis: Due to a prolonged period down on the ground. Currently renal function is grossly normal with creatinine of 0.74 but elevated BUN of 40. Given risk for developing AK I willhold off on aggressively replacing potassium or phosphorus overnight. Her [place] will be rechecked in the morning and if her kidney function stable I would consider cautious replacement of that. --Bariatric bed --NS at 150 cc/hr overnight --trend CK, LFTs, renal function daily 2. Generalized weakness: Likely multifactorial. She does have a left lower extremity cellulitis which may be contributory as well as dehydration and lack of access to food the past few days, but certainly also her morbid obesity with lymphedema I suspect is generally very limiting for her. For now will focus on IV hydration, improve her nutrition and treat her infection and ask for physical therapy consult. Social work will be consulted for likely need for placement. 3. LLE cellulitis: continue IV clindamcyin as started in the ER. She does have leukocytosis but blood pressure is stable. Initially I will hold off on further imaging aside from a left lower extremity ultrasound to rule out DVT. In any case Coumadin will be resumed though she has been off of this for a few days. 4. Hypophos, hypokalemia: As above I would favor being very cautious with replacement as if she doesdevelop further rhabdomyolysis she is actually at risk of developing hyperphosphatemia and hyperkalemia. For now I will not replace her phosphorus overnight but recheck this later this morning. I will place her on the low potassium replacement protocol. 5. History of multiple prior DVTs and one episode of PE: Per her report the last blood clot was about 10 years ago but it sounds as though she had multiple DVTs prior to that. She has been off of her Coumadin for at least 3 days but will restart this here. I will check a left lower extremity ultrasound to rule out clot. 6. Sleep apnea: Provide CPAP while here. 7. Mildly elevated LFTs: We will recheck these in the morning. Likely related to rhabdo and potentially early sepsis. 8. Hypertension: We will hold off on her losartan and HCTZ given obvious dehydration and risk for JIAN. I will resume her beta-uzair overnight. May need to consider adjusting her regimen pending her blood pressure trend. DVT Prophylaxis: Warfarin Code Status: Full Code Discharge Dispo: admit to inpatient status History of Present Illness: Marzena Evans is a 72 year old female with PMH including morbid obesity, hx of remote PE/DVT normally on coumadin, HTN, CEFERINO on cpap who presents with weakness and found down on the ground after three days. She is accompanied by her sister and her daughter who help provide some of the history. They did say they saw her about 4 days ago on Monday for [place] and that Marzena was complaining of some chills at that time and did not appear completely well to them. Marzena says that 3 days ago on Monday she was in the bathroom on the toilet and could not get up. With some great effort she eventually made it to the floor in front of the toilet but was unable to move much further and remained there for 3 days. She was able to get to some water but did not eat anything during that time. Eventually she was able to reach a phone in the bathroom and called 911 for help. Here in the emergency room she was found to have left lower extremity erythema. Initial workup was revealing of low potassium low phosphorus, elevated white blood count and elevated CK of 7030. Troponin was negative. Aside from feeling generally achy, weak and dehydrated with very dry mouth and that her left lower leg is warm and uncomfortable she denies any other focal symptoms. She denies cough or respiratory complaints. She does deny abdominal pain or dysuria. She was given IV fluids and started on IV clindamycin for presumed cellulitis in the emergency room and now I am asked to admit her for further care. Past Medical History: Past Medical History: Diagnosis Date ??? BENIGN HYPERTENSION 07/30/2003 ??? benign positional vertigo 09/08/2004 s/p canolith repositioning 07/21 ??? Coagulation disorder (H) Pulmonary embolism 2001 ??? GERD (gastroesophageal reflux disease) ??? CEFERINO (obstructive sleep apnea) nightly CPAP ??? Other lymphedema 11/04/2003 ??? PULM EMBOLISM/INFARCT NOS 11/20/2001 Past Surgical History: Past Surgical History: Procedure Laterality Date ??? CHOLECYSTECTOMY, OPEN 1969 ??? COLONOSCOPY N/A 01/13/2015 Procedure: COLONOSCOPY; Surgeon: Jose Juan Castaneda MD; Location: [facility] OR ? ? TONSILLECTOMY & ADENOIDECTOMY Social History: Social History Substance Use Topics ??? Smoking status: Never Smoker ??? Smokeless tobacco: Never Used ??? Alcohol use No Social History Social History Narrative Family History: Family History Problem Relation Age of Onset ??? Hypertension Mother ??? Thyroid Disease Mother ??? Prostate Cancer Father ??? Skin Cancer Father skin cancer unknown ??? C.A.D. Paternal Grandmother ??? Hypertension Sister ??? CEREBROVASCULAR DISEASE Maternal Grandmother age 62 ??? Breast Cancer Paternal Aunt x3 ??? GASTROINTESTINAL DISEASE Brother irritable bowel ??? GASTROINTESTINAL DISEASE Sister ciliac disease ??? DIABETES No family hx of ??? CANCER No family hx of No known family hx of skin cancer ??? Colon Cancer No family hx of Allergies: Allergies Allergen Reactions ??? Cephalexin Hives Keflex - hives ??? Lanolin Other (See Comments) skin irritation ??? Lisinopril Cough ??? Neomycin Other (See Comments) skin irritation ??? Penicillins Hives ??? Bactroban [Mupirocin Calcium] Rash Medications: Prior to Admission Medications Prescriptions Last Dose Informant Patient Reported? Taking? Cholecalciferol (VITAMIN D PO) Yes No Sig: Take 10,000 Units by mouth. Elastic Bandages & Supports (JOBST KNEE HIGH COMPRESSION SM) MISC No No Sig: Please custom-measure for ZIPPERED knee-high compression stockings. and issue ORDER FOR DME No No Sig: daily Auto-CPAP: Max 11 cm H2O, Min 11cm H2O Continuous, Lifetime need and heated humidity. ORDER FOR DME No No Sig: Equipment being ordered: CPAP mask Please dispense- Comfort gel blue nasal mask with HGR,DOM-Size Small Patient's machine is a Respironics by [employer] Star Auto A-Flex System 1. acetaminophen (TYLENOL) 325 MG tablet Yes No Sig: Take by mouth daily atenolol (TENORMIN) 25 MG tablet No No Sig: Take 1 tablet (25 mg) by mouth 2 times daily cetirizine (ZYRTEC) 10 MG tablet Yes No Sig: Take 10 mg by mouth 2 times daily desoximetasone (TOPICORT) 0.05 % GEL No No Sig: Apply 1 g topically two times daily hydrocortisone 2.5 % ointment No No Sig: Daily as needed losartan (COZAAR) 100 MG tablet No No Sig: Take 1 tablet (100 mg) by mouth daily order for DME No No Sig: Equipment being ordered: 4 wheeled walker for home use order for DME No No Si: gradient Compression Wraps; 2: Cast Boots; 3: velcro or zipper compression garment-custom for BLE knee or thigh high; triamterene-hydrochlorothiazide (DYAZIDE) 37.5-25 MG per capsule No No Sig: Take 1 capsule by mouth every morning warfarin (COUMADIN) 10 MG tablet No No Sig: Take 10mg MWF or as directed by INR clinic. warfarin (COUMADIN) 7.5 MG tablet No No Sig: Take 7.5mg (1 tablet) on TTSS (take 10mg tabs on MWF) or as directed by INR Clinic. Facility-Administered Medications: None Review of Systems: A Comprehensive greater than 10 system review of systems was carried out. Pertinent positives and negatives are noted above. Otherwise negative for contributory information. Physical Exam: Blood pressure 146/64, pulse 86, temperature 98 ??F (36.7 ??C), temperature source Oral, resp. rate 24, weight (!) 184.6 kg (406 lb 14.4 oz), SpO2 98 %. Wt Readings from Last 1 Encounters: 10/18/17 (!) 184.6 kg (406 lb 14.4 oz) Exam: General: Alert, awake, no acute distress. HEENT: NC/AT, eyes anicteric, external occular movements intact, face symmetric. Dentition somewhat poor, MM dry Cardiac: RRR, S1, S2. No murmurs appreciated. Pulmonary: Normal chest rise, normal work of breathing. Lungs CTA BL Abdomen: Morbidly obese soft, non-tender, non-distended. Bowel [...] Neuro: No focal deficits noted. Speech clear. Coordination and strength grossly normal. Psych: Appropriate affect. Data: EKG: Sinus rhythm Imaging: No results found for this or any previous visit (from the past 48 hour(s)). Labs: Recent Labs Lab 10/18/17 2134 WBC 16.5* HGB 13.6 HCT 39.4 MCV 91 PLT 193 Recent Labs Lab 10/18/17 2134 NA 137 POTASSIUM 3.1* CHLORIDE 102 CO2 28 ANIONGAP 7 GLC 125* BUN 40* CR 0.74 GFRESTIMATED 78 GFRESTBLACK >90 TOMA 8.7 PHOS 1.4* PROTTOTAL 7.1 ALBUMIN 2.5* BILITOTAL 1.7* ALKPHOS 74 AST 275* ALT 57* No results for input(s): CKT in the last 168 hours. Invalid input(s): CK, CK TOTAL Omkar MD Reece Hospitalist [facility] documented in this encounter Consult Notes Esha Fernandez MD - 10/20/2017 4:21 PM CDTAssociated Order(s): GYNECOLOGY IP CONSULT FOOD SERVICE ORDER CLERK CONSULT Delayed entry--Pt seen earlier in the morning, around 1115. I am asked to see this patient by Dr. Villanuvea, Hospitalist. Marzena Evans is a 72 yo p 1001 woman who was admitted 10/18/17 after being found on the floor of [facility], where it is suspected she laid x 3 days before being found after a fall from the toilet. Please refer to the ER note. She has a hx of morbid obesity with a Body mass index is 65.71 kg/(m^2). She also has hx of PE and is on coumadin, lymphedema, hypertension. She was admitted with rhabdomyolysis,dehydration, and deconditioning. SHe has LLE cellulitis, and had electrolyte abnormalities on admission. She developed atrial fibrillation since admission. She has pressure wounds, and wound care is treating. Most severe on left side. During exam yesterday, they noted some abnormal tissue protruding fr om the vagina, and I am asked to consult on this. See wound nurse note documenting pressure wounds. Marzena states she had one vaginal delivery 48 years ago. She has never been known to have any sort ofprolapse. Denies uterine prolapse or cystocele, denies bladder problems. Patient Active Problem List Diagnosis ??? Essential hypertension, benign ??? Pulmonary embolism and infarction (H) ??? Morbid obesity (H) ??? Other lymphedema ??? CEFERINO (obstructive sleep apnea) ??? CARDIOVASCULAR SCREENING; LDL GOAL LESS THAN 130 ??? Dermatitis, stasis ??? Advanced directives, counseling/discussion ??? [facility] ??? Binge eating ??? Eczema ??? Pre-diabetes ??? Vitamin D deficiency ??? detention current use of anticoagulant therapy ??? Rhabdomyolysis Past Surgical History: Procedure Laterality Date ??? CHOLECYSTECTOMY, OPEN 1970 ??? COLONOSCOPY N/A 01/13/2015 Procedure: COLONOSCOPY; Surgeon: Jose Juan Castaneda MD; Location: [facility] OR ? ? TONSILLECTOMY & ADENOIDECTOMY Current Facility-Administered Medications Medication ??? metoprolol tartrate (LOPRESSOR) half-tab 37.5 mg ??? multivitamin, therapeutic with minerals (THERA-VIT-M) tablet 1 tablet ??? zinc sulfate (ZINCATE) capsule 220 mg ??? ascorbic acid (VITAMIN C) tablet 500 mg ??? beta carotene capsule 10,000 Units ??? warfarin (COUMADIN) tablet 10 mg ??? sodium chloride 0.9% infusion ??? clindamycin (CLEOCIN) infusion 900 mg ??? naloxone (NARCAN) injection 0.1-0.4 mg ??? melatonin tablet 1 mg ??? magnesium sulfate 4 g in 100 mL sterile water (premade) ??? potassium chloride SA (K-DUR/KLOR-CON M) CR tablet 20-40 mEq ??? potassium chloride (KLOR-CON) Packet 20-40 mEq ??? potassium chloride 10 mEq in 100 mL sterile water intermittent infusion (premix) ??? potassium chloride 10 mEq in 100 mL intermittent infusion with 10 mg lidocaine ??? potassium chloride 20 mEq in 50 mL intermittent infusion ??? acetaminophen (TYLENOL) tablet 650 mg ??? oxyCODONE IR (ROXICODONE) tablet 5-10 mg ??? HYDROmorphone (PF) (DILAUDID) injection 0.2 mg ??? senna-docusate (SENOKOT-S;PERICOLACE) 8.6-50 MG per tablet 1 tablet Or ??? senna-docusate (SENOKOT-S;PERICOLACE) 8.6-50 MG per tablet 2 tablet ??? bisacodyl (DULCOLAX) Suppository 10 mg ??? ondansetron (ZOFRAN-ODT) ODT tab 4 mg Or ??? ondansetron (ZOFRAN) injection 4 mg ??? Warfarin Therapy Reminder (Check START DATE - warfarin may be starting in the FUTURE) ??? metoprolol (LOPRESSOR) injection 2.5 mg ??? potassium phosphate 15 mmol in D5W 250 mL intermittent infusion ??? potassium phosphate 20 mmol in D5W 500 mL intermittent infusion ??? potassium phosphate 20 mmol in D5W 250 mL intermittent infusion ??? potassium phosphate 25 mmol in D5W 500 mL intermittent infusion Allergies: Cephalexin, lanolin, lisinopril, neomycin, PCN, bactroban. Fam Hx Family History Problem Relation Age of Onset ??? Hypertension Mother ??? Thyroid Disease Mother ??? Prostate Cancer Father ??? Skin Cancer Father skin cancer unknown ??? C.A.D. Paternal Grandmother ??? Hypertension Sister ??? CEREBROVASCULAR DISEASE Maternal Grandmother age 62 ??? Breast Cancer Paternal Aunt x3 ??? GASTROINTESTINAL DISEASE Brother irritable bowel ??? GASTROINTESTINAL DISEASE Sister ciliac disease ??? DIABETES No family hx of ??? CANCER No family hx of No known family hx of skin cancer ??? Colon Cancer No family hx of Soc Hx: Single, ER note indicates possible hoarding. ROS: Denies pain when lying still OBJECTIVE: Blood pressure 113/57, pulse 86, temperature 97.3 ??F (36.3 ??C), resp. rate 20, weight (!) 184.6 kg(406 lb 14.4 oz), SpO2 95 %. Body mass index is 65.71 kg/(m^2). Morbidly obese woman A&O, on O2, in bed. Answers questions appropriately. Pleasant. Wound nurse Antonia came in during exam. Exam limited by her morbid obesity. With help x 2, perineum examined. Scanlon in. Purple tissue protruding is edematous left labium minus. Labium majus OK, right side OK. No further pelvic exam as access is limited. Does not appear to have any prolapse. ASSESSMENT: Edematous and ecchymotic left labium minus, likely part of trauma/pressure would from her 3 day pressure after fall onto buttock and inability to get up. PLAN: Wound therapy will continue to monitor. Suggest keeping pressure from scanlon off this area--perhaps can tape to anterior right thigh. Expect with pressure relief, will resolve. There is a chance it could become necrotic or slough, in which case debridement could become necessary, but as she is supine now and without pressure, I would expect slow improvement over time. Discussed with wound nurse. FOOD SERVICE ORDER CLERK will sign off and wound therapy will continue to monitor. If they feel integrity of vulvar tissue is worsening, they will reconsult. If pt has any vaginal bleeding, please reconsult. Esha Fernandez MD October 20, [address], LD - 10/20/2017 12:20 PM CDTAssociated Order(s): NUTRITION SERVICES ADULT IP CONSULT CLINICAL NUTRITION SERVICES - ASSESSMENT NOTE Recommendations Ordered by Registered Dietitian (RD): Smoothie protein supplements between meals and PRN Micronutrient supplementation per PI protocol with current poor appetite - Multivitamin + Mineral Daily - Ascorbic Acid 500 mg daily x 10 days - Beta Carotene 10,000 IU daily x 10 days - Zinc Sulfate 220 mg daily x 10 days Malnutrition: Does not meet criteria REASON FOR ASSESSMENT Marzena Evans is a 72 year old female seen by Registered Dietitian for Provider Order - Morbid obesity NUTRITION HISTORY - Information obtained from Marzena. - Pt had been eating normally up until Monday of this week. Intakes now <25% x5 days. - Normally Marzena east 2-3 meals daily, which she either prepares for herself of she eats out. - NKFA. Follows a regular diet. - Pt eats meat, eggs, yogurt. - Main barrier is reduced appetite, denies n/v, abdominal pain CURRENT NUTRITION ORDERS Diet Order: Regular Current Intake/Tolerance: Three meals ordered since admission: fruit ice, juice, pacheco smoothie. Pt liked the smoothie yesterday, agrees to protein smoothies 2x daily. PHYSICAL FINDINGS Observed Morbid obesity Obtained from Chart/Interdisciplinary Team WOCN 4/5 1. Left Upper Back: 2x6cm non blanching erythema- with superficial erosion of epidermis- Stage 2 2. Left inner groin fold: 7x11cm deep purple- DTPI 3. Left Inner THigh: 5x5cm deep purple intact - DTPI; Groin/ thigh: periwound has denuded skin- Stage 2 4. Left Posterior IT/ Entire Buttocks has significant damage; suspect may develop into Stage 4 woundhas multiple issues: Black dark dry thick necrotic tissue: 8x15cm with moist yellow slough extendingtowards rectum 3x6cm for a total area of 35c64ly, Periwound extends to the ENTIRE buttocks deep non b lanchable erythema/ maroon skin with scattered open areas- DPTI/ Unstageable evolving 5. Left Buttock Crease: fold intact and purple- DTPI 6. Left Posterior lower Thigh: 8 x 8 intact deep purple- DTPI 7. Left Anterior LE: 8x1 x0.1cm moist pink/ white tissue; Periwound erythema consistent with cellulitis vs Stage 2 8. Left Posterior LE: entire upper calf is deep purple; firm induration, consistent with cellulitis-DTPI 9. Left Lateral Heel: 3x3cm deep maroon intact skin- DTPI 10. Left Plantar (Ball of Foot): 3.5 x 6cm deep purple thick skin- DTPI ANTHROPOMETRICS Height: 5' 6 Weight: 406 lbs 14.4 oz (184.6 kg) Body mass index is 65.71 kg/(m^2). Weight Status: Obesity Grade III BMI >40 IBW: 59.1 kg % IBW: 312% Weight History: weight stable. Wt Readings from Last 10 Encounters: 10/18/17 (!) 184.6 kg (406 lb 14.4 oz) 03/14/17 (!) 181.9 kg (401 lb) 01/20/17 (!) 184.2 kg (406 lb) 01/03/17 (!) 183.9 kg (405 lb 8 oz) 01/22/16 (!) 182.3 kg (402 lb) 01/01/16 (!) 183.8 kg (405 lb 5 oz) 01/21/15 (!) 182.3 kg (402 lb) 01/13/15 (!) 180.8 kg (398 lb 9.6 oz) 12/30/14 (!) 183.3 kg (404 lb 2 oz) 11/10/14 (!) 187.8 kg (414 lb) LABS Labs reviewed Ketones / - 5 (H) Lab Results Component Value Date A1C 5.2 01/03/2017 A1C 5.4 01/01/2016 A1C 5.4 12/30/2014 A1C 5.7 12/23/2013 A1C 5.6 11/26/2012 MEDICATIONS Medications reviewed NaCl IVF @ 125 mL/hr K replacements ASSESSED NUTRITION NEEDS PER APPROVED PRACTICE GUIDELINES: Dosing Weight 90.5 kg Estimated Energy Needs: 5134-1806 kcals (20-25 Kcal/Kg) Justification: obese Estimated Protein Needs: 118-135 grams protein (1.3-1.5 g pro/Kg) Justification: preservation of lean body mass Estimated Fluid Needs: 2260+ mL (>1 mL/Kcal) Justification: maintenance MALNUTRITION: % Weight Loss: None noted % Intake: </= 50% for >/= 5 days (severe malnutrition) Subcutaneous Fat Loss: None observed Muscle Loss: None observed -->though potential for wasting obscured by obesity Fluid Retention: Moderate 3+ BL LE edema --> does not appear to be obscuring weight loss, poor malnutrition indicator Malnutrition Diagnosis: Patient does not meet two of the above criteria necessary for diagnosing malnutrition NUTRITION DIAGNOSIS: Inadequate oral intake related to reduced appetite as evidenced by reported poor po <25% x5 days. NUTRITION INTERVENTIONS Recommendations / Nutrition Prescription Diet per MD - Regular High protein supplement BID between meals Smoothie protein supplements between meals and PRN Micronutrient supplementation per PI protocol with current poor appetite - Multivitamin + Mineral Daily - Ascorbic Acid 500 mg daily x 10 days - Beta Carotene 10,000 IU daily x 10 days - Zinc Sulfate 220 mg daily x 10 days Implementation Nutrition education: Provided education on supplements available, reviewed protein foods. Pt inappropriate for weight loss education at this time given poor appetite. Medical Food Supplement, Multivitamin/Mineral: as above Nutrition Goals Pt to tolerate at least 50% of adequate meals TID + 1-2 supplements daily. MONITORING AND EVALUATION: Progress towards goals will be monitored and evaluated per protocol and Practice Guidelines Laverne Mays RD, LD 3rd floor/ICU: [phone] All other floors: [phone] Weekend/holiday: [phone] Office: [phone] documented in this encounter ED Notes Nancie Alston RN - 10/19/2017 12:26 AM CDT [facility] ED Nurse Handoff Report Marzena Evans is a 72 year old female ED Chief complaint: No chief complaint on file. . ED Diagnosis: Final diagnoses: Non-traumatic rhabdomyolysis Allergies: Allergies Allergen Reactions ??? Cephalexin Hives Keflex - hives ??? Lanolin Other (See Comments) skin irritation ??? Lisinopril Cough ??? Neomycin Other (See Comments) skin irritation ??? Penicillins Hives ??? Bactroban [Mupirocin Calcium] Rash Code Status: Full Code Activity level - Baseline/Home: Independent. Activity Level - Current: Total Care. Lift room needed:Yes. Bariatric: Yes Stock Layer Needed: No Isolation: No. Infection: Not Applicable. Vital Signs: Vitals: 10/18/17 2330 10/18/17 2345 10/19/17 0000 10/19/17 0015 BP: 143/79 132/66 143/60 128/79 Pulse: Resp: Temp: TempSrc: SpO2: 97% 95% 97% Weight: Cardiac Rhythm: , Pain level: Patient confused: No. Patient Falls Risk: Yes. Elimination Status: Has voided Patient Report - Initial Complaint: Pt presents to ED via EMS after a fall at home. Pt fell off toilet on Monday evening and was unable to get up or call for help. Pt finally able to reach phone and call 911 this evening. Pt is morbidly obese. EMS reports hoarding habit at her home. EMS suspect failure to thrive based off home conditions. Pt has hx of hypertension but hasn't been taking medications. EMS placed IV and gave about 400mL IV fluids [employer]OAD[employer]. BG 98 per EMS. ABCs intact. A&Ox3. VSS. ??. Focused Assessment: 22:53 Skin Color/Condition Skin - Skin WDL: WDL except; all Skin Comment: left leg hot, warm to touch, swollen KB 22:53 MHCD General Appearance - ADL Assessment (WDL): WDL except (no additional); all (hoarding per EMS report; pt morbidly obese;) Hygiene: neglected grooming - unclean body, hair, teeth KB 22:53 Genitourinary Genitourinary - Genitourinary WDL: WDL except; all Urine Characteristics: marv Genitalia(female) WDL: WDL except Reproductive Signs/Symptoms (Female): labial mass (finger like massto right labia; purple/red in color) Tests Performed: labs, UA, EKG. Abnormal Results: Labs Ordered and Resulted from Time of ED Arrival Up to the Time of Departure from the ED CBC WITH PLATELETS DIFFERENTIAL - Abnormal; Notable for the following: Result Value WBC 16.5 (*) Absolute Neutrophil 14.6 (*) Absolute Lymphocytes 0.4 (*) All other components within normal limits COMPREHENSIVE METABOLIC PANEL - Abnormal; Notable for the following: Potassium 3.1 (*) Glucose 125 (*) Urea Nitrogen 40 (*) Bilirubin Total 1.7 (*) Albumin 2.5 (*) ALT 57 (*) AST 275 (*) All other components within normal limits CK TOTAL - Abnormal; Notable for the following: CK Total 7030 (*) All other components within normal limits PHOSPHORUS - Abnormal; Notable for the following: Phosphorus 1.4 (*) All other components within normal limits ROUTINE UA WITH MICROSCOPIC REFLEX TO CULTURE - Abnormal; Notable for the following: Ketones Urine 5 (*) Blood Urine Large (*) Protein Albumin Urine 100 (*) Mucous Urine Present (*) Amorphous Crystals Few (*) All other components within normal limits TROPONIN I LACTIC ACID WHOLE BLOOD PERIPHERAL IV CATHETER . Treatments provided: ABX, fluids Family Comments: daughters were here- returning later OBS brochure/video discussed/provided to patient: N/A ED Medications: Medications 0.9% sodium chloride BOLUS (0 mLs Intravenous Stopped 10/18/179) clindamycin (CLEOCIN) infusion 900 mg (0 mg Intravenous Stopped 10/19/17 0026) 0.9% sodium chloride BOLUS (0 mLs Intravenous ED Infusing on Admission/transfer 10/19/17 0020) Drips infusing: Yes For the majority of the shift, the patient's behavior Green. Interventions performed were none. Severe Sepsis OR Septic Shock Diagnosis Present: No ED Nurse Name/Phone Number: Nancie Alston, 12:26 AM Nancie Govea RN - 10/18/2017 10:18 PM CDT Straight cathed pt for urine sample Nancie Govea RN - 10/18/2017 9:40 PM CDT Pt smells of urine and possible feces. Unable to turn pt at this time d/t lack of space on bed. Ordered bariatric bed. Will clean pt when bariatric bed arrives and can safely roll her to assess her skin. Nancie Govea RN - 10/18/2017 9:12 PM CDT Pt presents to ED via EMS after a fall at home. Pt fell off toilet on Monday evening and was unable to get up or call for help. Pt finally able to reach phone and call 911 this evening. Pt is morbidly obese. EMS reports hoarding habit at her home. EMS suspect failure to thrive based off home conditions. Pt has hx of hypertension but hasn't been taking medications. EMS placed IV and gave about 400mL IV fluids [employer] BROAD[employer]. BG 98 per EMS. ABCs intact. A&Ox3. VSS. Spike Hemphill RN - 10/18/2017 9:05 PM CDT Bed: ED02 Expected date: 10/18/17 Expected time: Means of arrival: Comments: HE 72F Silver Dawkins MD - 10/18/2017 9:04 PM CDT History Chief Complaint: Fall HPI Marzena Evans is a 72 year old female, with history of PE, lymphedema, hypertension, and on Coumadin, who presents to the ED for evaluation of fall. Per nurse's report, EMS noted the patient's residence seems like she has a hoarding habit. They suspect failure to thrive based on her living conditions. She has not been taking her hypertensive medications. She had an IV placed and was provided 400mLs of fluid by EMS. Her blood glucose was 98. Upon evaluation, the patient reports she fell 3 nights agooff the toilet onto her buttock. She was unable to get up herself and has been minimally hydrating with water from the sink. Her last drink was today. The patient notes she was finally able to reach a phone today and call 911. The patient reports her leg redness began approximately 1.5-2 weeks ago andhas progressively worsened. The patient denies any loss of consciousness, head trauma, injuries, pain, cough, shortness of breath, chest pain, or dysuria. Allergies: Cephalexin Lanolin Lisinopril Neomycin Penicillins Bactroban Medications: Coumadin Tenormin Dyazide Losartan Vitamin D Zyrtec Tylenol Past Medical History: HTN Obesity PE CEFERINO on CPAP Binge eating Dermatitis Lymphedema Vertigo GERD Past Surgical History: Cholecystectomy T&A Family History: HTN Thyroid disease Prostate cancer Skin cancer IBS Celiac disease Social History: Smoking status: Never smoker Alcohol use: No Marital Status: Single [1] Review of Systems Respiratory: Negative for cough and shortness of breath. Cardiovascular: Negative for chest pain. Genitourinary: Negative for dysuria. Musculoskeletal: Negative for arthralgias and myalgias. Skin: Positive for rash. Neurological: Negative for syncope. All other systems reviewed and are negative. Physical Exam Patient Vitals for the past 24 hrs: BP Temp Temp src Pulse Heart Rate Resp SpO2 Weight 10/18/17 2230 146/64 - - - - - 98 % - 10/18/17 2215 140/69 - - - - - 99 % - 10/18/17 2200 146/79 - - - - - 97 % - 10/18/17 2145 145/69 - - - - - 99 % - 10/18/17 2130 (!) 134/37 - - - - - 97 % - 10/18/17 2115 137/75 98 ??F (36.7 ??C) Oral 86 86 24 97 % (!) 184.6 kg (406 lb 14.4 oz) Physical Exam Nursing note and vitals reviewed. Constitutional: Cooperative. Significantly obese HENT: Mouth/Throat: dry mucous membranes. Poor oral hygiene Eyes: EOMI, nonicteric sclera Cardiovascular: Normal rate, regular rhythm, no murmurs, rubs, or gallops Pulmonary/Chest: Effort normal and breath sounds normal. No respiratory distress. No wheezes. No rales. Abdominal: Soft. Nontender, nondistended, no guarding or rigidity. BS present. : Large labial lesion arising from R) labia. Nonpainful. About 2cm in diameter and 3cm long. Musculoskeletal: Normal range of motion. Neurological: Alert. Moves all extremities spontaneously. Skin: Skin is warm and dry. BLE venous stasis dermatitis. LLE warmth, redness extending from a venous stasis ulcer to left lower extremity. Emergency Department Course ECG (21:43:07): Rate 82 bpm. GA interval 150. QRS duration 94. QT/QTc 382/446. P-R-T axes 53 39 17. Normal sinus rhythm. Normal ECG. No significant change compared to EKG dated 05/31/11. Interpreted at 2317 by Silver Dawkins MD. Laboratory: UA: Urineketon 5, Blood large, Protein albumin 100, Mucous present, Amorphous crystals few CK total: 7030(HH) Phosphorus: 1.4(L) Troponin I (2133): 0.015 Lactic acid (2203): 1.6 CBC: WBC 16.5(H) o/w WNL (HGB 13.6, PLT 193) CMP: Potassium 3.1(L), Glucose 125(H), BUN 40(H), Bilirubin total 1.7(H), Albumin 2.5(L), ALT 57(H),AST 275(H), o/w WNL (Creatinine 0.74) Interventions: 2142: NS 1L Bolus IV 2307: NS 1L Bolus IV 2308: Clindamycin 900mg IV Emergency Department Course: Patient arrived by EMS. Past medical records, nursing notes, and vitals reviewed. 9: I performed an exam of the patient and obtained history, as documented above. IV inserted and blood drawn. 2221: I rechecked the patient. Explained findings to patient. 2254: I spoke to Dr. Newell of the hospitalist service who accepts the patient for admission. Findings and plan explained to the Patient who consents to admission. Discussed the patient with , who will admit the patient to a med/surg bed for further monitoring, evaluation, and treatment. Impression & Plan Medical Decision Making: This is a 72 year old female who presents after being on the floor at her home for the last 3 days. On exam, patient has poor hygiene and evidence of left lower extremity cellulitis. Lung sounds were normal. There's not significant tachycardia. It sounds like patient was able to drink some water whileshe was stuck on the floor. She does have an elevated CK level, but only to 7000. She's been given 2liters of fluid in the emergency department for treatment of this. No acute kidney injury at this time, and the remainder of her electrolytes appear okay with exception of some mild hypokalemia and hypophosphatemia. I would not treat these at this time in case the patient's rhabdomyolysis gets worse. Patient does have leukocytosis as well which may be reactive from being on the floor or maybe secondary to her left lower extremity cellulitis. Given allergies to Penicillin and Keflex, I'll start her on Clindamycin for this as I would want to avoid Vancomycin given her ongoing rhabdo. Dr. Newell from the hospitalist service accepts. All of patient's and her family questions were answered and are in agreement with the plan. Diagnosis: ICD-10-CM 1. Non-traumatic rhabdomyolysis M62.82 Disposition: Patient admitted to a med/surg bed by Dr. Reece Whiting 10/18/2017 [facility] I, Gabbie Whiting, am serving as a scribe at 9:29 PM on 10/18/2017 to document services personally performed by Silver Dawkins MD based on my observations and the provider's statements to me. Silver Dawkins MD 10/19/17 0148 documented in this encounter Miscellaneous Notes Plan of Care - Maggie Mahajan OT - 10/25/2017 3:39 PM CDT Problem: Patient Care Overview Goal: Plan of Care/Patient Progress Review Occupational Therapy Discharge Summary Reason for therapy discharge: Discharged to transitional care facility. Progress towards therapy goal(s). See goals on Care Plan in [facility] electronic health record for goal details. Goals not met. Barriers to achieving goals: limited tolerance for therapy and discharge from facility. Therapy recommendation(s): Continued therapy is recommended. Rationale/Recommendations: patient was working towards goals at time of discharge. Further OT is recommeded to increase I with ADL's, functional mobility and activity tolerance/strength to return to baseline. . Plan of Care - Maggie Nino PTA - 10/25/2017 3:13 PM CDT Problem: Patient Care Overview Goal: Plan of Care/Patient Progress Review PT- planned discharge to TCU later today. Did not see this date. Goals were not met and was lift to Max A of 2 for EOB sitting. Associated attestation - Halima Liang, PT - 10/25/2017 3:29 PM CDT Physical Therapy Discharge Summary Reason for therapy discharge: Discharged to transitional care facility. Progress towards therapy goal(s). See goals on Care Plan in [facility] electronic health record for goal details. Goals not met. Barriers to achieving goals: discharge from facility. Therapy recommendation(s): Continued therapy is recommended. Rationale/Recommendations: Progress indep with mobility at TCU. . Note: Pt not seen by documenting PT on this date. Information obtained from chart review and discussion with DIRECTOR OPERATIONS BROADCAST. 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 INR Goal= 2-3 Warfarin [employer]OAD[employer] Regimen: 10mg MWF & 7.5mg all other days Anticoagulation Dose History Recent Dosing and Labs Latest Ref Rng & Units 10/19/2017 10/20/2017 10/21/2017 10/22/2017 10/23/2017 10/24/2017 10/25/2017 Warfarin 1 mg - - - 1 mg - - - - Warfarin 5 mg - - - - 5 mg - - - Warfarin 7.5 mg - - - - - 7.5 mg 7.5 mg - Warfarin 10 mg - 10 mg 10 mg - - - - - INR 0.86 - 1.14 1.48(H) 1.97(H) 2.88(H) 2.80(H) 2.66(H) 2.73(H) 2.42(H) INR 0.86 - 1.14 - - - - - - - Vitamin K doses administered during the last 7 days: - FFP administered during the last 7 days: - Reviewed AVS and agree with discharging the patient on [employer]CAST warfarin regimen. INR check per 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 physician. Plan of Care - Patience Mosqueda RN - 10/25/2017 6:36 AM CDT Problem: Patient Care Overview Goal: Plan of Care/Patient Progress Review Outcome: Improving Pt is slight tachy. Wore CPAP overnight. Assist of 2 with mechanical lift. Scanlon catheter patent, draining adequate amounts of dark marv urine. Foam dressings intact to R hip and L bethea. Bilateral lower extremity edema. On PO Cleocin. 100.8 temp, paged doctor per order. Rechecked and 99.9. Plan to discharge to TCU today. ?? Provider Notification - Patience Mosqueda RN - 10/25/2017 2:00 AM CDT Paged provider regarding 100.8 temp. Plan of Care - Evon Dillon RN - 10/24/2017 5:37 PM CDT Problem: Patient Care Overview Goal: Plan of Care/Patient Progress Review Outcome: Improving ben PO fairly well, repositioned in specialty bariatric bed with assist of 2-3 and lift, denies pain, scanlon patent; wound healing is noted by this nurse and [facility] nurse Antonia (see note); plans to dc to TCU tomorrow or when TCU available Plan of Care - Maggie Mahajan OT - 10/24/2017 1:31 PM CDT Problem: Patient Care Overview Goal: Plan of Care/Patient Progress Review Cell Room Supervisor OT Patient plan for discharge: Not stated, chart notes indicated plan forTCU Current status: Patient requesting B UE exercises. Per RN, patient's labs in safe range to initiate light strengthening. Patient provided with yellow (light resistance) theraband and HEP handout. Instructed in 5 exercises to start with, after instruction, patient was able to complete 5 reps bilaterally per exercises with rest breaks between sets. Educated in instructions on handout and how to progress exercises per tolerance, either in how to add resistance or increasing reps. Patient verbalized understanding. Patient encouraged to complete later today by herself and makes notes if she had any questions, patient was receptive to recommendation, Barriers to return to prior living situation: none to TCU, to home; current medical condition, decreased ADL's and functional transfers and mobility, significant decreased activity tolerance, wound care needs Recommendations for discharge: TCU Rationale for recommendations: skilled OT is appropriate to A with ADL's, increase activity tolerance and advance functional mobility as she progresses with PT Entered by: Maggie Mahajan 10/24/2017 1:25 PM Plan of Care - Maggie Nino PTA - 10/24/2017 11:06 AM CDT Problem: Patient Care Overview Goal: Plan of Care/Patient Progress Review Cell Room Supervisor PT Patient plan for discharge: there are new feelers out for where I can go Current status: Rolling to sides x 4 tired after this but then agreeable to ex, did have a trace amount of movement in her L ankle this date. Better at quds but still only limited at gluteals. Did complain of tingling in L leg but better after edema type massage. Barriers to return to prior living situation: mobility and safety Recommendations for discharge: PT- Per plan established by the Physical Therapist, according to functional mobility the discharge recommendation is TCU Rationale for recommendations: will benefit from continued skilled PT to maximize mobility. Entered by: Maggie Nino 10/24/2017 11:02 AM Plan of Care - Patience Mosqueda RN - 10/24/2017 5:00 AM CDT Problem: Patient Care Overview Goal: Plan of Care/Patient Progress Review Outcome: Improving Pt on remote tele, slight tachy and A Fib. Wore CPAP overnight. Assist of 2 with mechanical lift. Scanlon catheter patent, draining adequate amounts of dark marv urine. Foam dressings intact to R hip and L bethea. Bilateral lower extremity edema. On IV Cleocin. Plan to discharge to TCU today or tomorrow. Plan of Care - Gaye Conde RN - 10/23/2017 10:46 PM CDT Problem: Patient Care Overview Goal: Plan of Care/Patient Progress Review Outcome: Improving A&O x4. BP elevated and BP medications given. Slightly tachy at baseline with Afib, on remote tele. LS have expiratory wheezese, encouraging IS and TCDB. BS active x4, incontinent of stool this shift. Wound care provided to buttocks wounds and labia per orders. Foam dressings intact to R hip and Lshin. Maroon areas intact to L toe, ball of foot, and leg. On specialized mattress. T&R Q2H. On IV cleocin. ben PO well. up with A2 and lift. Denies pain. voiding in good amts via scanlon catheter. Plans for TCU on discharge. WIll continue to monitor. Plan of Care - Arabella Lozano RN - 10/23/2017 6:55 PM CDT Problem: Patient Care Overview Goal: Plan of Care/Patient Progress Review Outcome: Improving VSS- on remote tele. Alert x4. Wound care done per plan of care. Small BM today. Pt repositions withAx2 and lift to boost. On IV Cleocin. LLE less reddened today, BLE elevated on pillows, edema to Bilateral lowed extremities. Scanlon output- dark marv urine. Encouraged fluids. CPAP applied at night. Turn and repo every 2-3 hours today, pt also on sebastian-bed. Will need TCU at discharge. Plan dc 1-2 daysdepending on CK levels and placement. Will continue to monitor. Plan of Care - Zoe Dong, ANGLE - 10/23/2017 12:26 PM CDT Problem: Patient Care Overview Goal: Plan of Care/Patient Progress Review Cell Room Supervisor OT Patient plan for discharge: not stated Current status: Pt SOB upon arrival, moved HOB to approx. 65 degrees. Completed 2 UE CVC exercises after instruction, 1 minute activity, 2-2.5 min rest between sets. Pt SaO2 stable during exercises however pt presenting with SOB. Encouraged breathing techniques. Co-tx with PT, pt transferred to sit EOB with MOD Ax2 for LEs. Completed 2 additional, single step UE CVC's, 1 minute activity, 2-2.5 min rest between while seated EOB, SBA. Pt demo'ing stable trunk control during UE exercises; able to tolerate upright sitting position with minimal posterior lean. Barriers to return to prior living situation: current medical condition, decreased ADL's and functional transfers and mobility, significant decreased activity tolerance, wound care needs Recommendations for discharge: TCU Rationale for recommendations: skilled OT is appropriate to A with ADL's, increase activity tolerance and advance functional mobility as she progresses with PT Entered by: Zoe Dong 10/23/2017 12:26 PM Plan of Care - Danni Maria PTA - 10/23/2017 12:01 PM CDT Problem: Patient Care Overview Goal: Plan of Care/Patient Progress Review Cell Room Supervisor PT Patient plan for discharge: Pt open to TCU Current status: Pt transfers supine to/from sit with mod assist of 2 with both LEs. Note pt to requrie more assist with L LE with advancing to EOB. Pt was able to sit @ EOB x ~ 10 min while performing thera exs with OT (co-tx with OT). Pt intially was utilizing both UEs for support of trunk and progressed to without UE support. Pt did place B feet onto foot rest for support d/t bed being too high. Ptperformed rolling side to side several times while straightening Liko lift sheet & with nursing providing hygiene. Pt requried max to mod assist to the R with use of bed rail and requiring mod assist with L LE. Pt repositioned in bed with use of LIKO lift. Barriers to return to prior living situation: Significant dependence with all transfers/mobility, significant SOB at rest, general weakness and easy fatigue Recommendations for discharge: TCU Rationale for recommendations: Pt is very weak right now and needs significant assist with all transfers/mobility. Is able to tolerate some supine strength ex but is very limited with SOB symptoms evenat rest. Entered by: Dnani Maria 10/23/2017 12:01 PM Plan of Care - Joanna Mc RN - 10/23/2017 5:15 AM CDT Problem: Patient Care Overview Goal: Plan of Care/Patient Progress Review Outcome: Improving A&O. On 2L O2 with CPAP overnight. On tele monitoring. Loose stool x1. Assist of 2 with mechanical lift. Weight shifting provided. Scanlon catheter patent. Plan of Care - Mae Godwin RN - 10/22/2017 10:42 PM CDT Alert et oriented x4. Wound care done per plan of care. Pt repositions with Ax2 et use of lift. Continues on telemetry-AFib with CVR. IV Cleocin. LLE less reddened today. Scanlon in place with dark amberurine. Encouraged fluids. CPAP applied at HS. Will likely need TCU at discharge. Will continue to monitor. Plan of Care - Ekta Solano - 10/22/2017 5:14 PM CDT Problem: Patient Care Overview Goal: Plan of Care/Patient Progress Review Cell Room Supervisor PT Patient plan for discharge: Pt open to TCU Current status: Pt was using CPAP upon PT approach today with significant SOB at rest supine in bed;she removed it to talk to PT and had to stop to breath every couple words. Transfers deferred because of this today. Pt was agreeable to supine LE strength ex today within tolerance. Was able to complete with good pt participation and decreased PT assist than yesterday. Pt very SOB throughout but O2 sats measured 97% or above on RA the entire time. Barriers to return to prior living situation: Significant dependence with all transfers/mobility, significant SOB at rest, general weakness and easy fatigue Recommendations for discharge: TCU Rationale for recommendations: Pt is very weak right now and needs significant assist with all transfers/mobility. Is able to tolerate some supine strength ex but is very limited with SOB symptoms evenat rest. Entered by: Ekta Solano 10/22/2017 5:10 PM Associated attestation - Clementine Tello, PT - 10/22/2017 5:27 PM CDT Therapy services were provided by PT student clinician with the supervising clinician guiding and directing the services and providing the skilled judgement and assessment throughout the session. Clementine Tello, DPT Supervising clinician Plan of Care - Haylie Leyva RN - 10/22/2017 2:08 PM CDT Problem: Patient Care Overview Goal: Plan of Care/Patient Progress Review Outcome: No Change VSS. Denies pain. Turned/repositioned in bed q2h. LLE cellulitis - red, warm, edema. On IV cleocin. Multiple wound cares - done per POC. Poor appetite but is drinking her supplement shakes. IVF infusing. Incontinent loose stool x2 this shift. Scanlon intact - 450 mL tea colored urine. Tele - afib cvr HR70-90. Plan for discharge to TCU vs ARU. Will continue to monitor. Plan of Care - Joanna Mc RN - 10/22/2017 5:33 AM CDT Problem: Patient Care Overview Goal: Plan of Care/Patient Progress Review Outcome: Improving A&O. VSS, afebrile. 2L of O2 with CPAP overnight, Short of breath with movement, recovers quickly. Scanlon catheter patent. Assist of 2 with mechanical lift. No loose stools. Bilateral LE edema, elevated with pillows, weight shifting provided. Continues on cleocin. Plan of Care - Mae Godwin RN - 10/21/2017 10:53 PM CDT Problem: Patient Care Overview Goal: Plan of Care/Patient Progress Review Outcome: No Change A/O. Wound care done per order. Continues on IV cleocin. Incontinent of loose stool x1. Scanlon in place with dark marv urine. Repositions with Ax2 et lift. Remains on RA. Afebrile. Will continue to monitor. Plan of Care - Marlena Servin RN - 10/21/2017 5:42 PM CDT Problem: Patient Care Overview Goal: Plan of Care/Patient Progress Review Outcome: No Change Day RN ([id number]) A/O. VSS, afebrile (tachycardic at times, remote tele). No complaints of pain. LS diminished, shallow respirations, SOB with any type of activity. CPAP at NOC. +BS, +gas, tolerating regular diet (minimal appetite). Loose BM x 2 this shift, stool specimen sent to rule out c-diff (negative). Scanlon patent, draining dark marv urine. IV infusing, electrolytes WNL. Dressings CDI to R hip and L bethea, changed per orders. Wounds to L foot and L buttocks open to air, dressing changes/wound care done per orders. CMS intact, edema to BLE BLE elevated on pillows, turned and repositioned every 2 hours. IV cleocin for LLE cellulitis. PT and OT following. Will continue to monitor. Plan of Care - Ekta Solano - 10/21/2017 4:01 PM CDT Problem: Patient Care Overview Goal: Plan of Care/Patient Progress Review Cell Room Supervisor PT Patient plan for discharge: Is interested in returning home but is open to options that will help her get back to this. Current status: Pt is Mod Ax2 for supine>sit on EOB, took several minutes with frequent rest breaks, pt very SOB at end of transfer, required assist at L LE and upper body to complete. Pt very fatigued and ceiling lift used to return pt to supine in bed. Pt able to complete 3 active assisted LE exercises in supine with assist of PT. L LE much weaker than R. Pt very fatigued and SOB with all activity although has good motivation to attempt everything presented to her. Barriers to return to prior living situation: Dependence with all mobility/transfers, morbid obesity, very weak/low endurance. Recommendations for discharge: TCU Rationale for recommendations: Pt is heavily dependent at the moment with all mobility/transfers. Unable to stand/amb at this time d/t SOB/weakness. Poor L LE strength with inability to move effectively without assistance. Pt was IND before in living environment and is not close to reported baseline at all at this point. Pt does have good motivation to return to PLOF. Entered by: Ekta Solano 10/21/2017 3:53 PM Associated attestation - Clementine Tello PT - 10/21/2017 4:08 PM CDT Therapy services were provided by PT student clinician with the supervising clinician guiding and directing the services and providing the skilled judgement and assessment throughout the session. Clementine Tello DPT Supervising clinician Plan of Care - Zoe Dong OT - 10/21/2017 12:36 PM CDT Problem: Patient Care Overview Goal: Plan of Care/Patient Progress Review Cell Room Supervisor OT Patient plan for discharge: not stated Current status: Pt agreeable to UE CVC exercises in bed while reclined. Provided CVC handout. After instruction, pt completed 3 sets of CVCs for 1 minute each. Required at least 2.5 min break between each exercise. Pt presenting with SOB during exercises however SaO2 stable at mid 90's, desatted to 90% but able to recover within 1 minute. Pt appearing very fatigued during activity however very motivated and willing to participate. Barriers to return to prior living situation: current medical condition, decreased ADL's and functional transfers and mobility, significant decreased activity tolerance, wound care needs Recommendations for discharge: TCU, recommend ARU assess to determine if appropriate as pt is very motivated to participate in therapy Rationale for recommendations: skilled OT is appropriate to A with ADL's, increase activity tolerance and advance functional mobility as she progresses with PT Entered by: Zoe Dong 10/21/2017 12:36 PM Plan of Care - Ebony Bolanos RN - 10/21/2017 4:02 AM CDT Problem: Wound (Includes Pressure Injury) (Adult) Goal: Signs and Symptoms of Listed Potential Problems Will be Absent, Minimized or Managed (Wound) Signs and symptoms of listed potential problems will be absent, minimized or managed by discharge/transition of care (reference Wound (Includes Pressure Injury) (Adult) CPG). Outcome: No Change A&Ox4, up lift, repo q2h LDA: PIV infusing Vitals stable, CPAP 2L bled Pain: denies Tele: A.fib w/ CVR, BBB, PVCs, & invert T's per telephonic case manager CMS intact Edema LLE, cellultitis Multiple wounds-R hip & outer LLE covered w/foam dressing, CDI Bottom wounds eschar, purple, scabbing, purulent drainage, per POC UTV labia d/t pt size Scanlon patent Regular diet Followed by [facility], PT, OT, SW Plan: Continue IVF & IV cleocin, treat wounds, awaiting placement Will continue to monitor Plan of Care - Mae Godwin RN - 10/20/2017 11:43 PM CDT Problem: Patient Care Overview Goal: Plan of Care/Patient Progress Review Outcome: No Change A/O. Scanlon patent with dark marv/orange urine. Wound care provided to labia and wound on buttocks. Dressing to right hip intact with small amount drainage noted. Dressing D/I to left leg. Left leg with some redness and petechiae to left foot. Repositioned with Ax2 et use of lift. Remains on 2L for comfort, CPAP applied at HS. Remains on telemetry-in AFib. Continues on IV Cleocin. Denies pain. Will continue to monitor. Plan of Care - Marlena Servin RN - 10/20/2017 5:55 PM CDT Problem: Patient Care Overview Goal: Plan of Care/Patient Progress Review Outcome: No Change Day RN ([phone]) A/O. VSS, afebrile (tachycardic at times, remote tele). No complaints of pain. LS diminished, shallow respirations, SOB with any type of activity, continuous pulse ox on. CPAP at NOC. +BS, +gas, tolerating regular diet (minimal appetite), last BM 10/19. Scanlon patent, draining dark marv urine. IV infusing, electrolytes WNL. Dressings CDI to R hip and L bethea. Wounds to L foot and L buttocks open to air,dressing changes/wound care done per orders. CMS intact, +3 edema to BLE. BLE elevated on pillows, turned and repositioned every 2 hours. IV cleocin for LLE cellulitis. Head CT done, results negative. SW consulted for DC planning. PT and OT following. Will continue to monitor. ?? Plan of Care - Halima Liang, PT - 10/20/2017 5:36 PM CDT Problem: Patient Care Overview Goal: Plan of Care/Patient Progress Review PT: Orders received. PT evaluation completed and treatment initiated. Patient is a 72 year old female, with history of PE, lymphedema, hypertension, and on Coumadin, who presents to the ED for evaluation of fall. Per nurse's report, EMS noted the patient's residence seems like she has a hoarding habit. They suspect failure to thrive based on her living conditions. She has not been taking her hypertensive medications. She had an IV placed and was provided 400mLs of fluid by EMS. Her blood glucose was98. Upon evaluation, the patient reports she fell 3 nights ago off the toilet onto her buttock. She was unable to get up herself and has been minimally hydrating with water from the sink. Her last drink was today. The patient notes she was finally able to reach a phone today and call 911. The patient reports her leg redness began approximately 1.5-2 weeks ago and has progressively worsened. The patient denies any loss of consciousness, head trauma, injuries, pain, cough, shortness of breath, chest pain, or dysuria. ??She is clinically very dehydrated, has some component of rhabdomyolysis with CK ofover 7000 and also was found to have a left lower extremity cellulitis. ??She is being admitted for IV fluids, IV clindamycin and close monitoring of her renal function given concern for rhabdo. ??She is extremely weak and morbidly obese. Severe wound issues being addressed by WOC RN. ?? Prior to admission, patient was living I in 2 [facility] and managing her ADL's and IADL's welland without difficulty. Pt utilized a cane for mobility in the community, but typically used no AD in the home. Cell Room Supervisor PT Patient plan for discharge: Would like to return home, but states, I'm in no gomes Current status: Pt attempts supine>sit transfer with Nicole at LE, but approximately 25% through transfer pt becomes to fatigued to complete. Pt returned to supine position. Pt issued minimal LE strengthening exercises as this is all the pt could tolerate at this time. Pt motivated throughout session, but demonstrates very poor activity tolerance. Pt very SOB with minimal attempts at mobility/exercise, however pt's vitals stable throughout. Barriers to return to prior living situation: Very poor activity tolerance at this time. Stairs to enter and within home. Recommendations for discharge: TCU (as pt's BMI is highly elevated, the pt may be an ARU candidate) Rationale for recommendations: Pt is not currently at baseline for mobility, and is unsafe to discharge home. With continued PT, both IP and after discharge, pt is likely to obtain mobility goals. Entered by: Halima Liang 10/20/2017 5:31 PM Plan of Care - Maggie Mahajan, OT - 10/20/2017 4:44 PM CDT Problem: Patient Care Overview Goal: Plan of Care/Patient Progress Review OT- eval completed and treatment initiated. Patient is a 72 year old female, with history of PE, lymphedema, hypertension, and on Coumadin, who presents to the ED for evaluation of fall. Per nurse's report, EMS noted the patient's residence seems like she has a hoarding habit. They suspect failure to thrive based on her living conditions. She has not been taking her hypertensive medications. She had an IV placed and was provided 400mLs of fluid by EMS. Her blood glucose was 98. Upon evaluation, the patient reports she fell 3 nights ago off the toilet onto her buttock. She was unable to get up herself and has been minimally hydrating with water from the sink. Her last drink was today. The patient notes she was finally able to reach a phone today and call 911. The patient reports her leg redness began approximately 1.5-2 weeks ago and has progressively worsened. The patient denies any loss of consciousness, head trauma, injuries, pain, cough, shortness of breath, chest pain, or dysuria. She is clinically very dehydrated, has some component of rhabdomyolysis with CK of over 7000 and also was found to have a left lower extremity cellulitis. She is being admitted for IV fluids, IV clindamycin and close monitoring of her renal function given concern for rhabdo. She is extremely weak and morbidly obese. Severe wound issues being addressed by WOC RN. Prior to admission, patient was living I in 2 [facility] and managing her ADL's and IADL's welland without difficulty. Cell Room Supervisor OT Patient plan for discharge: not stated Current status: Patient was unable to effectively roll side to side in bed with OT A. Patient agreeable to B UE CVC's. Patient completed 2 sets of exercises for 2 minutes each with 1-2 minute rest breaks between sets. After 2nd exercise, patient reported increased SOB, O2 sats on RA remained above 90%, however despite rest breaks, patient did not report relief. RN was notified and came to assess, patient left with RN. Noted patient is slow to respond to questions, needs time to answer questions thoroughly, at times appears to loose train of thought and prompts needed to continue. Monitor and assessas needed. Barriers to return to prior living situation: current medical condition, decreased ADL's and functional transfers and mobility, significant decreased activity tolerance, wound care needs Recommendations for discharge: TCU, recommend ARU assess to determine if appropriate Rationale for recommendations: skilled OT is appropriate to A with ADL's, increase activity tolerance and advance functional mobility as she progresses with PT Entered by: Maggie Mahajan 10/20/2017 4:34 PM Provider Notification - Juju Worley RN - 10/20/2017 2:02 PM CDT Text Paged sajan villanueva stating daughter is concerned that the patient had a stroke and would like totalk to you Lyndsay [phone] Plan of Care - Thania Peres RN - 10/19/2017 9:46 PM CDT Problem: Patient Care Overview Goal: Plan of Care/Patient Progress Review Outcome: No Change VS-stable, started lopressor po this shift, bp within parameters, also has metoprol prn if hr>120. Lung Sounds-clear, but diminished bases, -cough, on room air, shallow and rapid RR. Cont pulse ox on. O2-on room air, has cpap on at night. GI-+bs, +flatus, has clear, mucousy discharge from rectum area. Tolerating full liq diet, pt can have regular diet, but wanted ice cream, fruit ice, popsicles,. Denies nausea. -scanlon in 450 dark, concentrated urine. IVF-at 125, phos also replaced this shift. Dressings-mepilex on R hip/flank area, Mepilex on L lower bethea. disposible cloth in L inner groin area and 2 in rectum area to wick away clear discharge moisture. Otherwise L leg/thigh/bethea and buttocks open to air. No discharge on L leg cellulitis area. Elevated on 1 pillow each leg, hob t 30 or less. CMS-denies numbness and tingling, +1pp, encouraged pt to pump ankles, on speciality sebastian bed, mightyair. L entire leg red in color--elevated. Some open areas noted. [facility] nurse following and documented 10 wounds. Drain-none Activity-bedrest, turned several times. On speciality air mattress, using lift to turn pt and boost.3 people for wound care. Pain-denies at this time. D/C Plan-reviewed plan of care with daughter. Did buttock/coccyx care at 2100, had clear milky white discharge, applied micro klenz, stoma powder,triad cream to black and yellow areas and open areas, applied barrier cream critic paste, near vagina area has a protruding area that ext js developer consulted for. Dr Urrutia aware of protusion. Phos 1.8 and replaced. Will recheck at 12 mn. On cleocin. Warfarin and lovenox. Echo done today. On remote tele--at [facility]. cvr 90-100. Pharmacy-Anticoagulation Service - Monse Santos RPH - 10/19/2017 1:14 PM CDT Clinical Pharmacy - Warfarin Dosing Consult Pharmacy has been consulted to manage this patient???s warfarin therapy. Indication: DVT/ PE Treatment Therapy Goal: INR 2-3 Warfarin Prior to Admission: Yes Warfarin DIRECTOR OPERATIONS BROADCAST Regimen: 10mg MWF & 7.5mg all other days Dose Comments: last dose on 10/15, INR subtherapeutic INR Date Value Ref Range Status 10/19/2017 1.48 (H) 0.86 - 1.14 Final INR Protime Date Value Ref Range Status 10/09/2017 3.0 (A) 0.86 - 1.14 Final Recommend warfarin 10 mg today. Pharmacy will monitor Marzena Evans daily and order warfarin doses to achieve specified goal. Please contact pharmacy as soon as possible if the warfarin needs to be held for a procedure or if the warfarin goals change. Plan of Care - Ekta Solano - 10/19/2017 10:40 AM CDT Problem: Patient Care Overview Goal: Plan of Care/Patient Progress Review PT: Orders received, chart reviewed. Noted in chart pt went into A-fib overnight. Called Shoelace Tipping Machine Operator who reports pt is still in A-fib at this time. Per discussion with RN, pt's BP is too low for medications at this time. Will hold PT evaluation at this date until pt is medically managed. Plan of Care - Zaida Godinez, OT - 10/19/2017 7:40 AM CDT Problem: Patient Care Overview Goal: Plan of Care/Patient Progress Review OT: Orders received and chart reviewed. Discussed with RN. RN requesting to hold OT at this time. Per RN and chart pt experiencing Afib Plan of Care - Bruna Randle RN - 10/19/2017 3:59 AM CDT Problem: Patient Care Overview Goal: Plan of Care/Patient Progress Review Outcome: No Change [phone] - paged - Admitted with Rhabdomylosis on 10/19. Unable to obtain the stat INR - lab tried multiple times. 24g peripheral IV in after multiple attempts. Vascular access and WOC consult for pressure injuries? Thanks! [phone] - paged - endoscopy specialty technician called. Pt converted into A-fib from SR. Pt resting and denies pain. [phone] - paged - endoscopy specialty technician called at 0445 that pt converted into A-fib from SR. Pt resting and denies pain. Normal Sinus on EKG in ER. Also, vascular access and/or WOC orders? 0604 - Called Shoelace Tipping Machine Operator to discuss situation. Ordered EKG 12 lead per protocol - telephonic case manager and 3rd floor charge assisted. 0622 - Notified Territory Sales Manager Medical that we were unable to reach Hospitalist and needed to be overhead paged as there was a concern. Overhead page sent. 0638 - No response and Nsg Territory Sales Manager Medical came to assess the situation. Awaiting lab work. 0655 - Dr. Dickerson called back and discussed situation. Increase of respirations, low grade temp, face flushed, nauseous, triggered lactic, unable to draw labs prior to paging out, hasn't been on coumadin last 3 days or so as was found on floor and pt went into new A-fib. Will place orders into [facility]. Pt admitted to floor at 0045. Placed scanlon with an assistance of 5 nursing staff. Pt received bath and linen change. Alert and oriented. LS clear, BS active, LBM unknown. Pt obese and unable to ambulate. Lift used for repositioning and pt tolerated well. CMS - pale and now flushed in the face this AM.LLE - redness and edema noted. LLE wound with yellow drainage - mepilex applied. L buttock suffers pressure injuries along with the inner R buttock. Skin tears/wounds noted on R hip and L buttock. Darkpurple area located on plantar foot.Skin and mucous membranes dry. Tolerated clear liquids even though is on a regular diet. Potassium r/p for a 3.1. Recheck this AM. Phosporous low at 1.4 but MD aware. Remote tele monitoring continues. CK level 7030. L Leg US was performed - results pending. 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 Cleocin for abx therapy. Pt resting but feels blah stated by pt. NS infusing at 150/hr in a 24g IV. Concerns about IV access and lab work as pt was a difficult stick and unable to obtain lab work earlier in shift. Note left for MD in regards to WOC consult and Vascular access if need be. Pharmacy-Admission Medication History - Bernabe Vargas [facility] - 10/18/2017 11:34 PM CDT Admission medication history interview status for this patient is complete. See [facility] admission navigator for allergy information, prior to admission medications and immunization status. Medication history interview source(s):Patient Medication history resources (including written lists, pill bottles, clinic record):None Changes made to DIRECTOR OPERATIONS BROADCAST medication list: Added: APAP, vitamin D Deleted: none Changed: topicort to PRN Actions taken by pharmacist (provider contacted, etc):None Additional medication history information:None Medication reconciliation/reorder completed by provider prior to medication history? No For patients on insulin therapy: no (Yes/No) Lantus/levemir/NPH/Mix 70/30 dose: ___ in AM/PM or twice daily Sliding scale Novolog Y/N If Yes, do you have a baseline novolog pre-meal dose: units with meals Patients eat three meals a day: Y/N --- How many episodes of hypoglycemia (low blood glucose) do you have weekly: --- How many missed doses do you have a week: --- How many times do you check your blood glucose per day: --- Any Barriers to therapy: cost of medications/comfortable with giving injections (if applicable)/ comfortable and confident with current diabetes regimen --- Prior to Admission medications Medication Sig Last Dose Taking? Auth Provider desoximetasone (TOPICORT) 0.05 % GEL Apply topically 2 times daily as needed for inflammation or itching Yes Unknown, Entered By History warfarin (COUMADIN) 10 MG tablet Take 10mg MWF or as directed by INR clinic. 10/13/2017 at 10mg Yes Lucero Stevenson MD warfarin (COUMADIN) 7.5 MG tablet Take 7.5mg (1 tablet) on TTSS (take 10mg tabs on MWF) or as directed by INR Clinic. 10/15/2017 at 7.5mg Yes Lucero Stevenson MD hydrocortisone 2.5 % ointment Daily as needed Yes Chastity Montero MD atenolol (TENORMIN) 25 MG tablet Take 1 tablet (25 mg) by mouth 2 times daily Past Week at Unknown time Yes Luis Herrera PA-C triamterene-hydrochlorothiazide (DYAZIDE) 37.5-25 MG per capsule Take 1 capsule by mouth every morning Past Week at Unknown time Yes Lucero Stevenson MD losartan (COZAAR) 100 MG tablet Take 1 tablet (100 mg) by mouth daily Past Week at Unknown time Yes Lucero Stevenson MD Cholecalciferol (VITAMIN D PO) Take 10,000 Units by mouth daily Past Week at Unknown time Yes Reported, Patient cetirizine (ZYRTEC) 10 MG tablet Take 10 mg by mouth 2 times daily Past Week at Unknown time Yes Reported, Patient acetaminophen (TYLENOL) 325 MG tablet Take 325 mg by mouth daily Past Week at Unknown time Yes Unknown, Entered By History documented in this encounter Plan of Treatment Upcoming Encounters Date Type Specialty Care Team Description 11/15/2022 Virtual Visit Pharm Haylie Gonzalez, [facility] [address] [facility] [place] [address] (Wo rk) 11/15/2022 Virtual Visit IM/Peds Yane Barraza MD [address] [facility] [place] [phone] (Wo rk) 03/03/2023 Virtual Visit Neurology Erlinda Barber MD [address] [facility] [address] [place] [address] (Wo rk) documented as of this encounter Procedures Procedure Name Priority Date/Time Associated Diagnosis Comme nts INR Routine 10/25/2017 8:28 Non-traumatic Results for this AM CDT rhabdomyolysis procedure are in the results section. CREATININE Routine 10/25/2017 8:28 Non-traumatic Results for this AM CDT rhabdomyolysis procedure are in the results section. INR Routine 10/24/2017 7:58 Non-traumatic Results for this AM CDT rhabdomyolysis procedure are in the results section. POTASSIUM Routine 10/24/2017 7:58 Non-traumatic Results for this AM CDT rhabdomyolysis procedure are in the results section. PHOSPHORUS Routine 10/24/2017 7:58 Non-traumatic Results for this AM CDT rhabdomyolysis procedure are in the results section. MAGNESIUM Routine 10/24/2017 7:58 Non-traumatic Results for this AM CDT rhabdomyolysis procedure are in the results section. CREATININE Routine 10/24/2017 7:58 Non-traumatic Results for this AM CDT rhabdomyolysis procedure are in the results section. CK TOTAL Routine 10/24/2017 7:58 Non-traumatic Results for this AM CDT rhabdomyolysis procedure are in the results section. LACTIC ACID WHOLE STAT 10/24/2017 12:17 Non-traumatic Resul ts for this BLOOD AM CDT rhabdomyolysis procedure are in the results section. INR Routine 10/23/2017 7:22 Non-traumatic Results for this AM CDT rhabdomyolysis procedure are in the results section. CK TOTAL Routine 10/23/2017 7:22 Non-traumatic Results for this AM CDT rhabdomyolysis procedure are in the results section. BASIC METABOLIC PANEL Routine 10/23/2017 7:22 Non-traumatic Re sults for this AM CDT rhabdomyolysis procedure are in the results section. WBC COUNT Routine 10/22/2017 5:39 Non-traumatic Results for this AM CDT rhabdomyolysis procedure are in the results section. INR Routine 10/22/2017 5:39 Non-traumatic Results for this AM CDT rhabdomyolysis procedure are in the results section. PHOSPHORUS Routine 10/22/2017 5:39 Non-traumatic Results for this AM CDT rhabdomyolysis procedure are in the results section. MAGNESIUM Routine 10/22/2017 5:39 Non-traumatic Results for this AM CDT rhabdomyolysis procedure are in the results section. COMPREHENSIVE Routine 10/22/2017 5:39 Non-traumatic Results fo r this METABOLIC PANEL AM CDT rhabdomyolysis procedure are in the results section. CK TOTAL Routine 10/22/2017 5:39 Non-traumatic Results for this AM CDT rhabdomyolysis procedure are in the results section. CLOSTRIDIUM DIFFICILE Routine 10/21/2017 1:00 Non-traumatic Re sults for this TOXIN B PM CDT rhabdomyolysis procedure are in the results section. LACTIC ACID WHOLE STAT 10/21/2017 6:36 Non-traumatic Result s for this BLOOD AM CDT rhabdomyolysis procedure are in the results section. INR Routine 10/21/2017 5:45 Non-traumatic Results for this AM CDT rhabdomyolysis procedure are in the results section. PHOSPHORUS Routine 10/21/2017 5:45 Non-traumatic Results for this AM CDT rhabdomyolysis procedure are in the results section. MAGNESIUM Routine 10/21/2017 5:45 Non-traumatic Results for this AM CDT rhabdomyolysis procedure are in the results section. CK TOTAL Routine 10/21/2017 5:45 Non-traumatic Results for this AM CDT rhabdomyolysis procedure are in the results section. BASIC METABOLIC PANEL Routine 10/21/2017 5:45 Non-traumatic Re sults for this AM CDT rhabdomyolysis procedure are in the results section. CT HEAD W/O CONTRAST Routine 10/20/2017 3:57 Resu lts for this PM CDT procedure are i n the results section. CBC WITH PLATELETS & Routine 10/20/2017 6:37 Non-traumatic Res ults for this DIFFERENTIAL AM CDT rhabdomyolysis procedure are in the results section. INR Routine 10/20/2017 6:37 Non-traumatic Results for this AM CDT rhabdomyolysis procedure are in the results section. PHOSPHORUS Routine 10/20/2017 6:37 Non-traumatic Results for this AM CDT rhabdomyolysis procedure are in the results section. MAGNESIUM Routine 10/20/2017 6:37 Non-traumatic Results for this AM CDT rhabdomyolysis procedure are in the results section. LACTIC ACID WHOLE STAT 10/20/2017 6:37 Non-traumatic Result s for this BLOOD AM CDT rhabdomyolysis procedure are in the results section. HEPATIC FUNCTION Routine 10/20/2017 6:37 Non-traumatic Results for this PANEL AM CDT rhabdomyolysis procedure are in the results section. CK TOTAL Routine 10/20/2017 6:37 Non-traumatic Results for this AM CDT rhabdomyolysis procedure are in the results section. BASIC METABOLIC PANEL Routine 10/20/2017 6:37 Non-traumatic Re sults for this AM CDT rhabdomyolysis procedure are in the results section. PHOSPHORUS Timed 10/19/2017 11:58 Non-traumatic Results fo r this PM CDT rhabdomyolysis procedure are in the results section. ECHO COMPLETE WITH Routine 10/19/2017 2:23 Result s for this OPTISON PM CDT procedure are i n the results section. INR STAT 10/19/2017 6:25 Non-traumatic Results for this AM CDT rhabdomyolysis procedure are in the results section. POTASSIUM Routine 10/19/2017 6:25 Non-traumatic Results for this AM CDT rhabdomyolysis procedure are in the results section. PLATELET COUNT Routine 10/19/2017 6:25 Non-traumatic Results f or this AM CDT rhabdomyolysis procedure are in the results section. PHOSPHORUS Routine 10/19/2017 6:25 Non-traumatic Results for this AM CDT rhabdomyolysis procedure are in the results section. MAGNESIUM Routine 10/19/2017 6:25 Non-traumatic Results for this AM CDT rhabdomyolysis procedure are in the results section. LACTIC ACID WHOLE Routine 10/19/2017 6:25 Non-traumatic Result s for this BLOOD AM CDT rhabdomyolysis procedure are in the results section. EKG 12-LEAD, TRACING STAT 10/19/2017 6:07 Resu lts for this ONLY AM CDT procedure are i n the results section. US LOWER EXTREMITY Routine 10/19/2017 3:05 Result s for this VENOUS DUPLEX LEFT AM CDT procedure are in PORTABLE the results section. ROUTINE UA WITH STAT 10/18/2017 10:18 Results for this MICROSCOPIC REFLEX TO PM CDT proced ure are in CULTURE the results section. EKG 12-LEAD, TRACING STAT 10/18/2017 9:43 Resu lts for this ONLY PM CDT procedure are i n the results section. CBC WITH PLATELETS & STAT 10/18/2017 9:34 Resu lts for this DIFFERENTIAL PM CDT procedure are i n the results section. TROPONIN I STAT 10/18/2017 9:34 Results for this PM CDT procedure are i n the results section. PHOSPHORUS STAT 10/18/2017 9:34 Results for this PM CDT procedure are i n the results section. MAGNESIUM Routine 10/18/2017 9:34 Non-traumatic Results for this PM CDT rhabdomyolysis procedure are in the results section. LACTIC ACID WHOLE STAT 10/18/2017 9:34 Results for this BLOOD PM CDT procedure are i n the results section. COMPREHENSIVE STAT 10/18/2017 9:34 Results for this METABOLIC PANEL PM CDT procedure ar e in the results section. CK TOTAL STAT 10/18/2017 9:34 Non-traumatic Results for this PM CDT rhabdomyolysis procedure are in the results section. documented in this encounter Results (ABNORMAL) INR (10/25/2017 8:28 AM CDT) athologist Signature INR 2.42 (H) 0.86 - 1.14 10/25/2017 [place] 8:48 AM CDT [facility] Specimen Anatomical Collection Method Collection Time Receive d Time (Source) Location / / Volume Laterality Blood specimen 10/25/2017 8:28 AM 018 8:29 (specimen) CDT AM CDT Chele Newell MD LAB - BLOOD ORDERABLES Performing Organization Address City/State/ZIP Code Phon e Number M [facility] [address] [place], [place] [address] [facility] [address] [place] [address] [phone] (ABNORMAL) Creatinine (10/25/2017 8:28 AM CDT) P athologist Signature Creatinine 0.43 (L) 0.52 - 10/25/2017 [place] 1.04 mg/dL 8:55 AM [facility] GFR Estimate >90 >60 10/25/2017 [place] mL/min/1.7 8:[address] Comment: Non GFR Calc GFR Estimate If >90 >60 mL/min/1.7m2 10/25/2017 8:55 A M [facility] Comment: GFR Calc Specimen Anatomical Collection Method Collection Time Receive d Time (Source) Location / / Volume Laterality Blood specimen 10/25/2017 8:28 AM 018 8:29 (specimen) CDT AM CDT Chele Newell MD LAB - BLOOD ORDERABLES Performing Organization Address City/State/ZIP Code Phon e Number M [facility] [address] [address] [facility] [address] [address], [facility] [phone] (ABNORMAL) INR (10/24/2017 7:58 AM CDT) athologist Signature INR 2.73 (H) 0.86 - 1.14 10/24/2017 [place] 8:16 AM [facility] Specimen Anatomical Collection Method Collection Time Receive d Time (Source) Location / / Volume Laterality Blood specimen 10/24/2017 7:58 AM 018 7:59 (specimen) CDT AM CDT Chele Newell MD LAB - BLOOD ORDERABLES Performing Organization Address City/State/ZIP Code Phon e Number M [facility] [address], [place] [address] [facility] [address] [place], [place] [address] [facility] [phone] Phosphorus (10/24/2017 7:58 AM CDT) athologist Signature Phosphorus 2.9 2.5 - 4.5 10/24/2017 [facility] mg/dL 8:26 AM CDT HOSPITAL Specimen Anatomical Collection Method Collection Time Receive d Time (Source) Location / / Volume Laterality Blood specimen 10/24/2017 7:58 AM 018 7:59 (specimen) CDT AM CDT Chele Newell MD LAB - BLOOD ORDERABLES Performing Organization Address City/[facility]/ZIP Code Phon e Number M [facility] [address], [place] [address] [facility] [address], [place] [address], [facility] [phone] Magnesium (10/24/2017 7:58 AM CDT) P athologist Signature Magnesium 1.8 1.6 - 2.3 10/24/2017 [facility] mg/dL 8:26 AM CDT HOSPITAL Specimen Anatomical Collection Method Collection Time Receive d Time (Source) Location / / Volume Laterality Blood specimen 10/24/2017 7:58 AM 018 7:59 (specimen) CDT AM CDT Chele Newell MD LAB - BLOOD ORDERABLES Performing Organization Address City/[facility]/ZIP [facility] Phon e Number [facility] [address], [place] [address] [facility] [address], [place] [address], [facility] [phone] Potassium (10/24/2017 7:58 AM CDT) P athologist Signature Potassium 3.6 3.4 - 5.3 10/24/2017 [facility] mmol/L 8:26 AM CDT HOSPITAL Specimen Anatomical Collection Method Collection Time Receive d Time (Source) Location / / Volume Laterality Blood specimen 10/24/2017 7:58 AM 018 7:59 (specimen) CDT AM CDT Chele Newell MD LAB - BLOOD ORDERABLES Performing Organization Address City/[facility]/ZIP Code Phon e Number M [facility] [address], [place] [address] [facility] [address], [place] [address], [facility] [phone] (ABNORMAL) Creatinine (10/24/2017 7:58 AM CDT) athologist Signature Creatinine 0.40 (L) 0.52 - 10/24/2017 [place] 1.04 mg/dL 8:26 AM [facility] GFR Estimate >90 >60 10/24/2017 [place] mL/min/1.7 8:[address] Comment: Non GFR Calc GFR Estimate If >90 >60 mL/min/1.7m2 10/24/2017 8:26 A M [facility] Comment: GFR Calc Specimen Anatomical Collection Method Collection Time Receive d Time (Source) Location / / Volume Laterality Blood specimen 10/24/2017 7:58 AM 018 7:59 (specimen) CDT AM CDT Anival Hernandez MD LAB - BLOOD ORDERABLES Performing Organization Address City/[facility]/ZIP Code Phon e [facility] [address], [place] [address] [place] [address] [address] [place], [place] [address], [facility] [phone] (ABNORMAL) CK total (10/24/2017 7:58 AM CDT) athologist Signature CK Total 234 (H) 30 - 225 10/24/2017 [place] U/L 8:26 AM [facility] Specimen Anatomical Collection Method Collection Time Receive d Time (Source) Location / / Volume Laterality Blood specimen 10/24/2017 7:58 AM 018 7:59 (specimen) CDT AM CDT Anival Hernandez MD LAB - BLOOD ORDERABLES Performing Organization Address [facility] [address] [place], [place] [address] [place] [address] [address] [place], [place] [address], [facility] [phone] Lactic acid level STAT (10/24/2017 12:17 AM CDT) P athologist Signature Lactic Acid 1.1 0.7 - 2.0 10/24/2017 [place] mmol/L 12:26 AM T [facility] Specimen Anatomical Collection Method Collection Time Receive d Time (Source) Location / / Volume Laterality Blood specimen 10/24/2017 12:17 8 (specimen) AM CDT 12:18 AM CDT Anival Hernandez MD LAB - BLOOD ORDERABLES Performing Organization Address [facility]/[address] [place] [address] [address] [place] [address], [facility] [phone] (ABNORMAL) INR (10/23/2017 7:22 AM CDT) P athologist Signature INR 2.66 (H) 0.86 - 1.14 10/23/2017 [place] 7:44 AM CDT [facility] Specimen Anatomical Collection Method Collection Time Receive d Time (Source) Location / / Volume Laterality Blood specimen 10/23/2017 7:22 AM 018 7:23 (specimen) CDT AM CDT Chele Newell MD LAB - BLOOD ORDERABLES Performing Organization Address [facility]/[place] [address] [address], [place] [address] [place] [address] [address] [place] [address], [facility] [phone] (ABNORMAL) CK total (10/23/2017 7:22 AM CDT) P athologist Signature CK Total 415 (H) 30 - 225 10/23/2017 [place] U/L 8:06 AM T [facility] Specimen Anatomical Collection Method Collection Time Receive d Time (Source) Location / / Volume Laterality Blood specimen 10/23/2017 7:22 AM 018 7:23 (specimen) CDT AM CDT Iwona Bowling MD LAB - BLOOD ORDERABLES Performing Organization Address [facility]/[place] [address] [address], [place] [address] [facility] [address] [phone] (ABNORMAL) Basic metabolic panel (10/23/2017 7:22 AM CDT) Analysis Performed At Patho logist Time Signature Sodium 138 133 - 144 10/23/2017 [place] mmol/L 8:06 AM [facility] Potassium 3.9 3.4 - 5.3 10/23/2017 [place] mmol/L 8:06 AM [facility] Chloride 106 94 - 109 10/23/2017 [place] mmol/L 8:06 AM [facility] Carbon Dioxide 26 20 - 32 10/23/2017 [place] mmol/L 8:06 AM [facility] Anion Gap 6 3 - 14 10/23/2017 [place] mmol/L 8:06 AM [facility] Glucose 108 (H) 70 - 99 10/23/2017 [place] mg/dL 8:06 AM [facility] Urea Nitrogen 13 7 - 30 10/23/2017 [place] mg/dL 8:06 AM [facility] Creatinine 0.45 (L) 0.52 - 10/23/2017 [place] 1.04 mg/dL 8:06 AM [facility] GFR Estimate >90 >60 10/23/2017 [place] mL/min/1.7 8:[address] Comment: Non GFR Calc GFR Estimate If >90 >60 mL/min/1.7m2 10/23/2017 8:06 A M [facility] Comment: GFR Calc Calcium 7.5 (L) 8.5 - 10.1 mg/dL 10/23/2017 8:06 AM [facility] Specimen Anatomical Collection Method Collection Time Receive d Time (Source) Location / / Volume Laterality Blood specimen 10/23/2017 7:22 AM 018 7:23 (specimen) CDT AM [facility] Iwona Bowling MD LAB - BLOOD ORDERABLES Performing Organization Address City/State/ZIP Code Phon e Number M [address] [facility] [address], [place] [address], [facility] [phone] Phosphorus (10/22/2017 5:39 AM CDT) athologist Signature Phosphorus 3.1 2.5 - 4.5 10/22/2017 [facility] mg/dL 3:45 PM CDT HOSPITAL Specimen Anatomical Collection Method Collection Time Receive d Time (Source) Location / / Volume Laterality 10/22/2017 5:39 AM 8 5:40 CDT AM CDT Iwona Bowling MD LAB - BLOOD ORDERABLES Performing Organization Address City/[facility]/ZIP [facility] Phon e Garo [facility] [address], [place] [address] [place] [address] [address] [place], [place] [address], [facility] [phone] Magnesium (10/22/2017 5:39 AM CDT) athologist Signature Magnesium 1.9 1.6 - 2.3 10/22/2017 [facility] mg/dL 3:45 PM CDT HOSPITAL Specimen Anatomical Collection Method Collection Time Receive d Time (Source) Location / / Volume Laterality 10/22/2017 5:39 AM 8 5:40 CDT AM CDT Iwona Bowling MD LAB - BLOOD ORDERABLES Performing Organization Address City/[facility]/ZIP Code Phon e Garo [facility] [address] [place], [place] [address] [facility] [address] [place], [place] [address], [facility] [phone] (ABNORMAL) INR (10/22/2017 5:39 AM CDT) athologist Signature INR 2.80 (H) 0.86 - 1.14 10/22/2017 [place] 6:19 AM CDT [facility] Specimen Anatomical Collection Method Collection Time Receive d Time (Source) Location / / Volume Laterality Blood specimen 10/22/2017 5:39 AM 018 5:40 (specimen) CDT AM CDT Chele Newell MD LAB - BLOOD ORDERABLES Performing Organization Address [facility] [address] [place], [place] [address] [facility] [address], [place] [address], [facility] [phone] (ABNORMAL) WBC count (10/22/2017 5:39 AM CDT) P athologist Signature WBC 13.1 (H) 4.0 - 11.0 10/22/2017 [place] 10e9/L 6:09 AM [facility] Specimen Anatomical Collection Method Collection Time Receive d Time (Source) Location / / Volume Laterality Blood specimen 10/22/2017 5:39 AM 018 5:40 (specimen) CDT AM CDT Iwona Bowling MD LAB - BLOOD ORDERABLES Performing Organization Address [facility] [address], [place] [address] [place] [address] [address] [place] [address], [facility] [phone] (ABNORMAL) CK total (10/22/2017 5:39 AM CDT) P athologist Signature CK Total 923 (H) 30 - 225 10/22/2017 [place] U/L 6:28 AM [facility] Specimen Anatomical Collection Method Collection Time Receive d Time (Source) Location / / Volume Laterality Blood specimen 10/22/2017 5:39 AM 018 5:40 (specimen) CDT AM CDT Iwona Bowling MD LAB - BLOOD ORDERABLES Performing Organization Address [facility] [address], [place] [address] [facility] [address] [place], [place] [address], [facility] [phone] (ABNORMAL) Comprehensive metabolic panel (10/22/2017 5:39 AM [facility]) Analysis Performed At Patho logist Time Signature Sodium 139 133 - 144 10/22/2017 [place] mmol/L 6:28 AM [facility] Potassium 3.7 3.4 - 5.3 10/22/2017 [place] mmol/L 6:28 AM [facility] Chloride 108 94 - 109 10/22/2017 [place] mmol/L 6:28 AM [facility] Carbon Dioxide 24 20 - 32 10/22/2017 [place] mmol/L 6:28 AM [facility] Anion Gap 7 3 - 14 10/22/2017 [place] mmol/L 6:28 AM [facility] Glucose 109 (H) 70 - 99 10/22/2017 [place] mg/dL 6:28 AM [facility] Urea Nitrogen 15 7 - 30 10/22/2017 [place] mg/dL 6:28 AM [facility] Creatinine 0.44 (L) 0.52 - 10/22/2017 [place] 1.04 mg/dL 6:28 AM [facility] GFR Estimate >90 >60 10/22/2017 [place] mL/min/1.7 6:[address] Comment: Non GFR Calc GFR Estimate If >90 >60 mL/min/1.7m2 10/22/2017 6:28 A M [facility] Comment: GFR Calc Calcium 7.4 (L) 8.5 - 10.1 10/22/2017 6:28 AM [facility] mg/dL [facility] Bilirubin Total 0.6 0.2 - 1.3 mg/dL 10/22/2017 6:28 AM [facility] Albumin 1.5 (L) 3.4 - 5.0 g/dL 10/22/2017 6:28 AM [facility] Protein Total 5.3 (L) 6.8 - 8.8 g/dL 10/22/2017 6:28 AM [facility] Alkaline Phosphatase 64 40 - 150 U/L 10/22/2017 6:28 AM [facility] ALT 69 (H) 0 - 50 U/L 10/22/2017 6:28 AM [facility] AST 100 (H) 0 - 45 U/L 10/22/2017 6:28 AM [facility] Specimen Anatomical Collection Method Collection Time Receive d Time (Source) Location / / Volume Laterality Blood specimen 10/22/2017 5:39 AM 018 5:40 (specimen) CDT AM CDT Iwona Bowling MD LAB - BLOOD ORDERABLES Performing Organization Address City/[facility]/ZIP [facility] Phon e Number [place] [address] [address] [place] [address] [place] [address] [address] [place] [address], [facility] [phone] Clostridium difficile toxin B PCR (10/21/2017 1:00 PM CDT) [facility] Method Time Signature Specimen Feces 10/21/2017 [place] Description 1:01 PM CDT [facility] C Diff Toxin B Negative NEG^Negat 10/21/2017 [facility] vance 5:34 PM CDT [facility] Comment: Negative: Clostridium difficile target D NA sequences NOT detected, presumed negative for Clostridium difficile toxin B or the number of bacteria present may be below the limit of detection for the test. FDA approved assay performed using [employer] GeneXpert real-time PCR. A negative result [...] Location / / Volume Laterality Stool specimen 10/21/2017 1:00 PM 018 1:20 (specimen) CDT PM CDT Iwona Bowling MD LAB - MICRO GENERAL ORDERABL ES Performing Organization Address City/State/ZIP Code Phon e Number [id number] [place] [address] [address] [place] [address], [facility] [phone] Lactic acid level STAT (10/21/2017 6:36 AM CDT) athologist Signature Lactic Acid 0.8 0.7 - 2.0 10/21/2017 [place] mmol/L 6:51 AM [facility] Specimen Anatomical Collection Method Collection Time Receive d Time (Source) Location / / Volume Laterality Blood specimen 10/21/2017 6:36 AM 018 6:37 (specimen) CDT AM CDT Iwona Bowling MD LAB - BLOOD ORDERABLES Performing Organization Address City/[facility]/ZIP [facility] Phon e Number [facility] [address], [place] [address] [place] [address] [address] [place] [address], [facility] [phone] (ABNORMAL) INR (10/21/2017 5:45 AM CDT) P athologist Signature INR 2.88 (H) 0.86 - 1.14 10/21/2017 [place] 6:08 AM [facility] Specimen Anatomical Collection Method Collection Time Receive d Time (Source) Location / / Volume Laterality Blood specimen 10/21/2017 5:45 AM 018 5:46 (specimen) CDT AM CDT Chele Newell MD LAB - BLOOD ORDERABLES Performing Organization Address City/[facility] Phon e Number [facility] [address], [place] [address] [place] [address] [address] [place] [address], [facility] [phone] (ABNORMAL) Basic metabolic panel (10/21/2017 5:45 AM CDT) Analysis Performed At Patho logist Time Signature Sodium 134 133 - 144 10/21/2017 [place] mmol/L 6:13 AM [facility] Potassium 3.8 3.4 - 5.3 10/21/2017 [place] mmol/L 6:13 AM [facility] Chloride 108 94 - 109 10/21/2017 [place] mmol/L 6:13 AM [facility] Carbon Dioxide 21 20 - 32 10/21/2017 [place] mmol/L 6:13 AM [facility] Anion Gap 5 3 - 14 10/21/2017 [place] mmol/L 6:13 AM [facility] Glucose 105 (H) 70 - 99 10/21/2017 [place] mg/dL 6:13 AM [facility] Urea Nitrogen 19 7 - 30 10/21/2017 [place] mg/dL 6:13 AM [facility] Creatinine 0.43 (L) 0.52 - 10/21/2017 [place] 1.04 mg/dL 6:13 AM [facility] GFR Estimate >90 >60 10/21/2017 [place] mL/min/1.7 6:[address] Comment: Non GFR Calc GFR Estimate If >90 >60 mL/min/1.7m2 10/21/2017 6:13 A M [facility] Comment: GFR Calc Calcium 7.6 (L) 8.5 - 10.1 mg/dL 10/21/2017 6:13 AM [facility] Specimen Anatomical Collection Method Collection Time Receive d Time (Source) Location / / Volume Laterality Blood specimen 10/21/2017 5:45 AM 018 5:46 (specimen) CDT AM CDT Chele Newell MD LAB - BLOOD ORDERABLES Performing Organization Address City/State/ZIP Code Phon e Number [place] [address] [phone] (ABNORMAL) CK total (10/21/2017 5:45 AM CDT) P athologist Signature CK Total 1,729 (HH) 30 - 225 10/21/2017 [place] U/L 7:33 AM [facility] Comment: Specimen run with a dilution Critical Value called to and read back Ashlee BOLANOS ([email or web address]) ON 10/21/2017 AT 0733 BY MOISE Specimen Anatomical Collection Method Collection Time Receive d Time (Source) Location / / Volume Laterality Blood specimen 10/21/2017 5:45 AM 018 5:46 (specimen) CDT AM CDT Chele Newell MD LAB - BLOOD ORDERABLES Performing Organization Address City/[facility] Phon e Number Mally [facility] [address], [place] [address] [facility] [address], [place] [address], [facility] [phone] Magnesium (10/21/2017 5:45 AM CDT) P athologist Signature Magnesium 2.0 1.6 - 2.3 10/21/2017 [facility] mg/dL 6:13 AM CDT HOSPITAL Specimen Anatomical Collection Method Collection Time Receive d Time (Source) Location / / Volume Laterality Blood specimen 10/21/2017 5:45 AM 018 5:46 (specimen) CDT AM CDT Iwona Bowling MD LAB - BLOOD ORDERABLES Performing Organization Address City/[facility]/ZIP [facility] Phon e Number [facility] [address], [place] [address] [place] [address] [address] [place], [place] [address], [facility] [phone] Phosphorus (10/21/2017 5:45 AM CDT) P athologist Signature Phosphorus 2.9 2.5 - 4.5 10/21/2017 [facility] mg/dL 6:13 AM CDT HOSPITAL Specimen Anatomical Collection Method Collection Time Receive d Time (Source) Location / / Volume Laterality Blood specimen 10/21/2017 5:45 AM 018 5:46 (specimen) CDT AM CDT Iwona Bowling MD LAB - BLOOD ORDERABLES Performing Organization Address City/[facility] Phon e Number [facility] [address], [place] [address] [facility] [address], [place] [address], [facility] [phone] CT Head w/o Contrast (10/20/2017 3:57 PM CDT) Anatomical Region Laterality Modality Head, SUBRAD CT NEURO, SUBRAD CT NEURO, UMP CT NEURO, Computed Tomography RAD CT Specimen (Source) Anatomical Location Collection Method / Collectio n Time Received Time / Laterality Volume Impressions 10/20/2017 4:17 PM CDT IMPRESSION: ??Diffuse cerebral volume loss and cerebral white matter changes consistent with chronic small ve ssel ischemic disease. No evidence for acute intracranial patholog y. Radiation dose for this scan was reduced using automated exposure control, adjustment of the mA and/or kV according to patient size, or iterative reconstruction technique. REGGIE ZHANG MD Narrative 10/20/2017 4:[address] OF THE HEAD WITHOUT CONTRAST 10/20/2017 3:57 PM COMPARISON: None. HISTORY: Atrial fibrillation with earlie r toe numbness, recent fall, rule out CVA. TECHNIQUE: [address] images of the head were acquired without IV contrast material. FINDINGS: ??There is mild diffuse cerebr al volume loss. There are subtle patchy areas of decreased density in the cerebral white matter bilaterally that are consistent with seq uela of chronic small vessel ischemic disease. The ventricles and basal cisterns are wi thin normal limits in configuration given the degree of cerebr al volume loss. ??There is no midline shift. There are no extra-axial fluid collections. No intracranial hemorrhage, mass or rece nt infarct. The visualized paranasal sinuses are wel l-aerated. There is no mastoiditis. There are no fractures of t he visualized bones. Procedure Note Reggie Zhang MD - 10/20/2017Forma tting of this note might be different from the original. CT OF THE HEAD WITHOUT CONTRAST 10/20/2017 3:57 PM COMPARISON: None. HISTORY: Atrial fibrillation with earlie r toe numbness, recent fall, rule out CVA. TECHNIQUE: [address] images [...] to patient size, or iterative reconstruction technique. REGGIE ZHANG MD Bharath Villanueva MD IMG CT ORDERABLES Lactic acid level STAT (10/20/2017 6:37 AM CDT) athologist Signature Lactic Acid 0.9 0.7 - 2.0 10/20/2017 [place] mmol/L 7:05 AM T [facility] Specimen Anatomical Collection Method Collection Time Receive d Time (Source) Location / / Volume Laterality Blood specimen 10/20/2017 6:37 AM 018 6:38 (specimen) CDT AM CDT Chele Newell MD LAB - BLOOD ORDERABLES Performing Organization Address City/[facility]/ZIP [facility] Phon e Number [facility] [address] [place] [phone] [facility] [address] [place] [address], [facility] [phone] Phosphorus (10/20/2017 6:37 AM CDT) athologist Signature Phosphorus 2.7 2.5 - 4.5 10/20/2017 [facility] mg/dL 7:03 AM [facility] Specimen Anatomical Collection Method Collection Time Receive d Time (Source) Location / / Volume Laterality Blood specimen 10/20/2017 6:37 AM 018 6:38 (specimen) CDT AM CDT Chele Newell MD LAB - BLOOD ORDERABLES Performing Organization Address City/[facility]/ZIP [facility] Phon e Number [facility] [address] [place] [address] [facility] [address] [place] [address], [facility] [phone] Magnesium (10/20/2017 6:37 AM CDT) athologist Signature Magnesium 2.0 1.6 - 2.3 10/20/2017 [facility] mg/dL 7:07 AM [facility] Specimen Anatomical Collection Method Collection Time Receive d Time (Source) Location / / Volume Laterality Blood specimen 10/20/2017 6:37 AM 018 6:38 (specimen) CDT AM CDT Chele Newell MD LAB - BLOOD ORDERABLES Performing Organization Address [facility]/ZIP [facility] Phon e Number [facility] [address], [place] [address] [place] [address] [place] [address], [facility] [phone] (ABNORMAL) INR (10/20/2017 6:37 AM CDT) P athologist Signature INR 1.97 (H) 0.86 - 1.14 10/20/2017 [place] 6:59 AM [facility] Specimen Anatomical Collection Method Collection Time Receive d Time (Source) Location / / Volume Laterality Blood specimen 10/20/2017 6:37 AM 018 6:38 (specimen) CDT AM CDT Chele Newell MD LAB - BLOOD ORDERABLES Performing Organization Address [facility] Phon e [facility] [address], [place] [address] [place] [address] [address] [place] [address], [facility] [phone] (ABNORMAL) Basic metabolic panel (10/20/2017 6:37 AM CDT) Analysis Performed At Patho logist Time Signature Sodium 139 133 - 144 10/20/2017 [place] mmol/L 7:07 AM [facility] Potassium 3.8 3.4 - 5.3 10/20/2017 [place] mmol/L 7:07 AM [facility] Chloride 107 94 - 109 10/20/2017 [place] mmol/L 7:07 AM [facility] Carbon Dioxide 27 20 - 32 10/20/2017 [place] mmol/L 7:07 AM [facility] Anion Gap 5 3 - 14 10/20/2017 [place] mmol/L 7:07 AM [facility] Glucose 122 (H) 70 - 99 10/20/2017 [place] mg/dL 7:07 AM [facility] Urea Nitrogen 21 7 - 30 10/20/2017 [place] mg/dL 7:07 AM [facility] Creatinine 0.51 (L) 0.52 - 10/20/2017 [place] 1.04 mg/dL 7:07 AM [facility] GFR Estimate >90 >60 10/20/2017 [place] mL/min/1.7 7:[address] Comment: Non GFR Calc GFR Estimate If >90 >60 mL/min/1.7m2 10/20/2017 7:07 A M [facility] Comment: GFR Calc Calcium 7.7 (L) 8.5 - 10.1 mg/dL 10/20/2017 7:07 AM [facility] Specimen Anatomical Collection Method Collection Time Receive d Time (Source) Location / / Volume Laterality Blood specimen 10/20/2017 6:37 AM 018 6:38 (specimen) CDT AM CDT Chele Newell MD LAB - BLOOD ORDERABLES Performing Organization Address City/State/ZIP Code Phon e Number [place] [address] [address] [place] [address] [place] [address] [phone] (ABNORMAL) CK total (10/20/2017 6:37 AM CDT) P athologist Signature CK Total 3,010 (HH) 30 - 225 10/20/2017 [place] U/L 7:25 AM [facility] Comment: Specimen run with a dilution Critical Value called to and read back b y JUJU SAUNDERS (MS6) ON 10/20/17 AT 0724 B Y TB Specimen Anatomical Collection Method Collection Time Receive d Time (Source) Location / / Volume Laterality Blood specimen 10/20/2017 6:37 AM 018 6:38 (specimen) CDT AM CDT Chele Newell MD LAB - BLOOD ORDERABLES Performing Organization Address City/State/ZIP Code Phon e Number M [facility] [address], [place] [address] [facility] [address], [place] [address], [facility] [phone] (ABNORMAL) Hepatic panel (10/20/2017 6:37 AM CDT) Analysis Performed At Patho logist Time Signature Bilirubin Direct 0.3 (H) 0.0 - 0.2 10/20/2017 [place] mg/dL 7:07 AM [facility] Bilirubin Total 0.8 0.2 - 1.3 10/20/2017 [place] mg/dL 7:07 AM [facility] Albumin 1.7 (L) 3.4 - 5.0 10/20/2017 [place] g/dL 7:07 AM [facility] Protein Total 5.5 (L) 6.8 - 8.8 10/20/2017 [place] g/dL 7:07 AM [facility] Alkaline 64 40 - 150 10/20/2017 [place] Phosphatase U/L 7:07 AM [facility] ALT 67 (H) 0 - 50 U/L 10/20/2017 [place] 7:07 AM [facility] AST 203 (H) 0 - 45 U/L 10/20/2017 [place] 7:07 AM [facility] Specimen Anatomical Collection Method Collection Time Receive d Time (Source) Location / / Volume Laterality Blood specimen 10/20/2017 6:37 AM 018 6:38 (specimen) CDT AM CDT Chele Newell MD LAB - BLOOD ORDERABLES Performing Organization Address City/[facility]/ZIP [facility] Phon e Number M [facility] [address], [place] [address] [facility] [address], [place] [address] [phone] (ABNORMAL) CBC with platelets differential (10/20/2017 6:37 AM CDT) Patholo gist Method Time Signature WBC 14.1 (H) 4.0 - 10/20/2017 [facility] 11.0 6:47 AM [facility] 10e9/L [facility] RBC Count 3.87 3.8 - 5.2 10/20/2017 [facility] 10e12/L 6:47 AM [facility] Hemoglobin 12.2 11.7 - 10/20/2017 [facility] 15.7 g/dL 6:47 AM [facility] Hematocrit 35.5 35.0 - 10/20/2017 [facility] 47.0 % 6:47 AM [facility] MCV 92 78 - 100 10/20/2017 [facility] fl 6:47 AM [facility] MCH 31.5 26.5 - 10/20/2017 [facility] 33.0 pg 6:47 AM [facility] MCHC 34.4 31.5 - 10/20/2017 [facility] 36.5 g/dL 6:47 AM [facility] RDW 13.5 10.0 - 10/20/2017 [facility] 15.0 % 6:47 AM [facility] Platelet Count 179 150 - 450 10/20/2017 [facility] 10e9/L 6:47 AM [facility] Diff Method Automated 10/20/2017 [facility] Method 6:47 AM [facility] % Neutrophils 79.6 % 10/20/2017 [facility] 6:47 AM [facility] % Lymphocytes 6.9 % 10/20/2017 [facility] 6:47 AM [facility] % Monocytes 9.3 % 10/20/2017 [facility] 6:47 AM [facility] % Eosinophils 0.3 % 10/20/2017 [facility] 6:47 AM [facility] % Basophils 0.4 % 10/20/2017 [facility] 6:47 AM [facility] % Immature 3.5 % 10/20/2017 [facility] Granulocytes 6:47 AM [facility] Nucleated RBCs 0 0 /100 10/20/2017 [facility] 6:47 AM [facility] Absolute 11.3 (H) 1.6 - 8.3 10/20/2017 [facility] Neutrophil 10e9/L 6:47 AM [facility] Absolute 1.0 0.8 - 5.3 10/20/2017 [facility] Lymphocytes 10e9/L 6:47 AM [facility] Absolute 1.3 0.0 - 1.3 10/20/2017 [facility] Monocytes 10e9/L 6:47 AM [facility] Absolute 0.0 0.0 - 0.7 10/20/2017 [place] Eosinophils 10e9/L 6:47 AM [facility] Absolute 0.1 0.0 - 0.2 10/20/2017 [place] Basophils 10e9/L 6:47 AM [facility] Abs Immature 0.5 (H) 0 - 0.4 10/20/2017 [place] Granulocytes 10e9/L 6:47 AM [facility] Absolute 0.0 10/20/2017 [place] Nucleated RBC 6:47 AM [facility] Specimen Anatomical Collection Method Collection Time Receive d Time (Source) Location / / Volume Laterality Blood specimen 10/20/2017 6:37 AM 018 6:38 (specimen) CDT AM CDT Chele Newell MD LAB - BLOOD ORDERABLES Performing Organization Address City/[facility]/ZIP Code Phon e Number [facility] [address], [place] [address] [place] [address] [address] [place], [place] [address], [facility] [phone] (ABNORMAL) Phosphorus (10/19/2017 11:58 PM CDT) P athologist Signature Phosphorus 2.2 (L) 2.5 - 4.5 10/20/2017 [place] mg/dL 12:24 AM [facility] Specimen Anatomical Collection Method Collection Time Receive d Time (Source) Location / / Volume Laterality Blood specimen 10/19/2017 11:58 8 (specimen) PM CDT 11:59 PM CDT Bharath Villanueva MD LAB - BLOOD ORDERABLES Performing Organization Address City/State/ZIP [facility] Phon e Number [facility] [address], [place] [address] [place] [address] [address] [place] [address], [facility] [phone] ECHO COMPLETE WITH OPTISON (10/19/2017 2:23 PM CDT) Anatomical Region Laterality Modality Echocardiography Specimen (Source) Anatomical Collection Method Collection Time Re ceived Time Location / / Volume Laterality 10/19/2017 2:07 PM CDT Narrative 10/19/2017 3:14 PM CDT [id number]^IDALIA^REJI^L [facility] Echocardiography Laboratory [address] [place] [address] Name: MARZENA EVANS : 1945 Study Date: 10/19/2017 02:07 PM Age: 72 yrs Gender: Female Patient Location: [facility] Reason For Study: Afib Ordering Physician: REJI DICKERSON Referring Physician: Lucero Stevenson Performed By: Belen Almaguer RDCS BSA: 2.7 m2 Height: 67 in Weight: 406 lb HR: 93 BP: 129/50 mmHg __ Procedure Complete Portable Echo Adult. Contrast O ptison. __ Interpretation Summary The rhythm was atrial fibrillation. Left ventricular systolic function is no rmal. The visual ejection fraction is estimate d at 55-60%. The left ventricle is normal in size. The right ventricle is normal in structu re, function and size. doppler interrogation does not demonstra te significant stenosis or insuffiency involving cardiac valves. No old studies available for comparison __ Left Ventricle The left ventricle is normal in size. Th ere is normal left ventricular wall thickness. Left ventricular systolic fun ction is normal. The visual ejection fraction is estimated at 55-60%. Left ve ntricular diastolic function is indeterminate. No regional wall motion a bnormalities noted. There is no thrombus seen in the left ventricle. Right Ventricle The right ventricle is normal in structu re, function and size. There is no mass or thrombus in the right ventricle. Atria Normal left atrial size. Right atrial si ze is normal. There is no atrial shunt seen. Mitral Valve The mitral valve leaflets appear normal. There is no evidence of stenosis, fluttering, or prolapse. There is no josé luis ral regurgitation noted. There is no mitral valve stenosis. Tricuspid Valve Normal tricuspid valve. The right ventri cular systolic pressure is approximated at 22.1 mmHg plus the right atrial pressure. Right ventricle systolic pressure estimate normal. There is trace to mild tricuspid regurgitation. There is no tricuspid mikey nosis. Aortic Valve The aortic valve is trileaflet. No aorti c regurgitation is present. No aortic stenosis is present. Pulmonic Valve The pulmonic valve is not well visualize d. There is no pulmonic valvular regurgitation. There is no pulmonic valv ular stenosis. Vessels The aortic root is normal size. Normal s ize ascending aorta. The IVC is normal in size and reactivity with respiration, suggesting normal central venous pressure. The pulmonary artery is normal size. Pericardium The pericardium appears normal. There is no pleural effusion. Rhythm The rhythm was atrial fibrillation. __ MMode/2D Measurements & Calculations IVSd: 1.1 cm LVIDd: 5.4 cm LVIDs: 3.0 cm LVPWd: 1.1 cm FS: 44.4 % LV mass(C)d: 237.0 grams LV mass(C)dI: 86.8 grams/m2 Ao root diam: 3.6 cm LA dimension: 3.9 cm asc Aorta Diam: 3.7 cm LA/Ao: 1.1 LA volume (AL/bp): 82.5 cm3 LA Volume Indexed (AL/bp): 30.2 ml/m2 RWT: 0.42 Doppler Measurements & Calculations MV E max jann: 89.3 cm/sec MV dec time: 0.21 sec TR max jann: 234.1 cm/sec TR max P.1 mmHg E/E' av.8 Lateral E/e': 4.4 Medial E/e': 5.3 __ Report approved by: Dr. Solomon devlin 10/19/2017 03:14 PM Procedure Note Solomon Gold MD - 10/19/2017For matting of this note might be different from the original. [id number]^IDALIA^REJI^I[place]anna [facility] Echocardiography Laboratory [address] [place] [id number] Name: MARZENA EVANS : 1945 Study Date: 10/19/2017 02:07 PM Age: 72 yrs Gender: Female Patient Location: [facility] Reason For Study: Afib Ordering Physician: REJI DICKERSON Referring Physician: Lucero Stevenson Performed By: Belen Almaguer RDCS BSA: 2.7 m2 Height: 67 in Weight: 406 lb HR: 93 BP: 129/50 mmHg __ Procedure Complete Portable Echo Adult. Contrast O ptison. __ Interpretation Summary The rhythm was atrial fibrillation. Left ventricular systolic function is no rmal. The visual ejection fraction is estimate d at 55-60%. The left ventricle is normal in size. The right ventricle is normal in structu re, function and size. doppler interrogation does not demonstra te significant stenosis or insuffiency involving cardiac valves. No old studies available for comparison __ Left Ventricle The left ventricle is normal in size. Th ere is normal left ventricular wall thickness. Left ventricular systolic fun ction is normal. The visual ejection fraction is estimated at 55-60%. Left ve ntricular diastolic function is indeterminate. No regional wall motion a bnormalities noted. There is no thrombus seen in the left ventricle. Right Ventricle The right ventricle is normal in structu re, function and size. There is no mass or thrombus in the right ventricle. Atria Normal left atrial size. Right atrial si ze is normal. There is no atrial shunt seen. Mitral Valve The mitral valve leaflets appear normal. There is no evidence of stenosis, fluttering, or prolapse. There is no josé luis ral regurgitation noted. There is no mitral valve stenosis. Tricuspid Valve Normal tricuspid valve. The right ventri cular systolic pressure is approximated at 22.1 mmHg plus the right atrial pressure. Right ventricle systolic pressure estimate normal. There is trace to mild tricuspid regurgitation. There is no tricuspid mikey nosis. Aortic Valve The aortic valve is trileaflet. No aorti c regurgitation is present. No aortic stenosis is present. Pulmonic Valve The pulmonic valve is not well visualize d. There is no pulmonic valvular regurgitation. There is no pulmonic valv ular stenosis. Vessels The aortic root is normal size. Normal s ize ascending aorta. The IVC is normal in size and reactivity with respiration, suggesting normal central venous pressure. The pulmonary artery is normal size. Pericardium The pericardium appears normal. There is no pleural effusion. Rhythm The rhythm was atrial fibrillation. __ MMode/2D Measurements & Calculations IVSd: 1.1 cm LVIDd: 5.4 cm LVIDs: 3.0 cm LVPWd: 1.1 cm FS: 44.4 % LV mass(C)d: 237.0 grams LV mass(C)dI: 86.8 grams/m2 Ao root diam: 3.6 cm LA dimension: 3.9 cm asc Aorta Diam: 3.7 cm LA/Ao: 1.1 LA volume (AL/bp): 82.5 cm3 LA Volume Indexed (AL/bp): 30.2 ml/m2 RWT: 0.42 Doppler Measurements & Calculations MV E max jann: 89.3 cm/sec MV dec time: 0.21 sec TR max jann: 234.1 cm/sec TR max P.1 mmHg E/E' av.8 Lateral E/e': 4.4 Medial E/e': 5.3 __ Report approved by: Dr. Solomon devlin 10/19/2017 03:14 PM Reji Dickerson MD CV ECHO ORDERABLES Magnesium (10/19/2017 6:25 AM CDT) P athologist Signature Magnesium 2.1 1.6 - 2.3 10/19/2017 [facility] mg/dL 12:03 PM CDT HOSPITAL Specimen Anatomical Collection Method Collection Time Receive d Time (Source) Location / / Volume Laterality 10/19/2017 6:25 AM 8 6:26 CDT AM CDT Chele Newell MD LAB - BLOOD ORDERABLES Performing Organization Address City/State/ZIP Code Phon e Number [facility] [address], [place] [address] [facility] [address], [place] [address], [facility] [phone] Potassium (10/19/2017 6:25 AM CDT) P athologist Signature Potassium 3.4 3.4 - 5.3 10/19/2017 [facility] mmol/L 8:01 AM CDT [facility] Specimen Anatomical Collection Method Collection Time Receive d Time (Source) Location / / Volume Laterality 10/19/2017 6:25 AM 8 6:26 CDT AM CDT Chele Newell MD LAB - BLOOD ORDERABLES Performing Organization Address City/State/ZIP Code Phon e Number [facility] [address], [place] [address] [facility] [address] [place], [place] [address], [facility] [phone] Lactic acid whole blood (10/19/2017 6:25 AM CDT) P athologist Signature Lactic Acid 1.3 0.7 - 2.0 10/19/2017 [place] mmol/L 6:47 AM CDT [facility] Specimen Anatomical Collection Method Collection Time Receive d Time (Source) Location / / Volume Laterality Blood specimen 10/19/2017 6:25 AM 018 6:47 (specimen) CDT AM CDT Chele Newell MD LAB - BLOOD ORDERABLES Performing Organization Address City/State/ZIP Code Phon e Number [facility] [address] [address] [facility] [address] [place], [place] [address], [facility] [phone] (ABNORMAL) INR (10/19/2017 6:25 AM CDT) P athologist Signature INR 1.48 (H) 0.86 - 1.14 [facility]/19[facility]49 AM [facility] Specimen Anatomical Collection Method Collection Time Receive d Time (Source) Location / / Volume Laterality Blood specimen 10/19/2017 6:25 AM 018 6:26 (specimen) CDT AM CDT Chele Newell MD LAB - BLOOD ORDERABLES Performing Organization Address [facility] Phon e Number [facility] [address] [place] [address] [place] [address] [address] [place] [address], [facility] [phone] (ABNORMAL) Phosphorus (10/19/2017 6:25 AM CDT) P athologist Signature Phosphorus 1.8 (L) 2.5 - 4.5 10/19/2017 [place] mg/dL 6:53 AM [facility] Specimen Anatomical Collection Method Collection Time Receive d Time (Source) Location / / Volume Laterality Blood specimen 10/19/2017 6:25 AM 018 6:26 (specimen) CDT AM CDT Chele Newell MD LAB - BLOOD ORDERABLES Performing Organization Address [facility] Phon e Number [facility] [address], [place] [address] [place] [address] [address] [place] [address], [facility] [phone] Platelet count (10/19/2017 6:25 AM CDT) P athologist Signature Platelet Count 172 150 - 450 10/19/2017 [facility] 10e9/L 6:39 AM [facility] Specimen Anatomical Collection Method Collection Time Receive d Time (Source) Location / / Volume Laterality Blood specimen 10/19/2017 6:25 AM 018 6:26 (specimen) CDT AM CDT Chele Newell MD LAB - BLOOD ORDERABLES Performing Organization Address City/State/ZIP Code Phon e Number [facility] [address] [place] [place] [address] [facility] [address], [place] [address], [facility] [phone] EKG 12-lead, complete (10/19/2017 6:07 AM CDT) [facility] gist Method Time Signature Interpretation ECG Click View RADIOLOGY Image link RESULTS to view waveform and result Specimen (Source) Anatomical Collection Method Collection Time Re ceived Time Location / / Volume Laterality 10/19/2017 6:07 AM CDT Chele Newell MD ECG ORDERABLES Performing Organization Address City/State/ZIP Code Phon e Number RADIOLOGY RESULTS US Lower Extremity Venous Duplex Left Port (10/19/2017 3:05 AM CDT) Anatomical Region Laterality Modality Lower Extremity Ultrasound Specimen (Source) Anatomical Location Collection Method / Collectio n Time Received Time / Laterality Volume Impressions 10/19/2017 7:56 AM CDT IMPRESSION: 1. No deep vein thrombosis in the left l ower extremity. 2. Fluid collection in the left poplitea l fossa. May represent a postoperative seroma or Lopez's cyst. YANET DE JESUS DO Narrative 10/19/2017 7:56 AM CDT VENOUS ULTRASOUND LEFT LEG ??10/19/2017 3:05 AM HISTORY: History of numerous DVTs, off c oumadin for 3-4 days. Now with left lower extremity cellulitis vs quest ion of clot. COMPARISON: None. FINDINGS: ??Examination of the deep vein s with graded compression and color flow Doppler with spectral wave fo rm analysis shows no evidence of thrombus in the left common femoral v ein, femoral vein, popliteal vein or calf veins. The right common fem oral vein was evaluated for comparison and is normal. There is a flu id collection with multiple scattered internal septations measuring 9.5 x 7.1 x 6.0 cm. Procedure Note Yanet De Jesus DO - 2017 VENOUS ULTRASOUND LEFT LEG 10/19/2017 3:05 AM HISTORY: History of numerous DVTs, off c oumadin for 3-4 days. Now with left lower extremity cellulitis vs quest ion of clot. COMPARISON: None. FINDINGS: Examination of the deep veins with graded compression and color flow Doppler with spectral wave fo rm analysis shows no evidence of thrombus in the left common femoral v ein, femoral vein, popliteal vein or calf veins. The right common fem oral vein was evaluated for comparison and is normal. There is a flu id collection with multiple scattered internal septations measuring 9.5 x 7.1 x 6.0 cm. IMPRESSION: 1. No deep vein thrombosis in the left l ower extremity. 2. Fluid collection in the left poplitea l fossa. May represent a postoperative seroma or Lopez's cyst. YANET DE JESUS DO Chele Newell MD IMG US ORDERABLES (ABNORMAL) UA with Microscopic reflex to Culture (10/18/2017 10:18 PM T) Component Value Ref Test Analysis [facility]formed [facility] gist Range Method Time Signature Color Urine Marv 10/18/2017 [facility] 10:34 PM [facility] Appearance Urine Slightly Cloudy 10/18/2017 [facility] 10:34 PM [facility] Glucose Urine Negative NEG^Nega 10/18/2017 [facility] tive 10:34 PM [place] mg/dL [facility] Bilirubin Urine Negative NEG^Nega 10/18[facility] Ketones Urine 5 (A) NEG^Nega 10/18/2017 [facility] tive 10:34 PM [place] mg/dL [facility] Specific [place] 1.025 1.003 - 10/18/2017 [place] Urine 1.035 10:34 PM [facility] Blood Urine Large (A) NEG^Nega 10/18/2017 [facility] tive 10:34 PM [facility] pH Urine 5.0 5.0 - 10/18/2017 [facility] 7.0 pH 10:34 PM [facility] Protein Albumin 100 (A) NEG^Nega 10/18/2017 [place] Urine tive 10:34 PM [place] mg/dL [facility] Urobilinogen 0.0 0.0 - 10/18/2017 [facility] mg/dL 2.0 10:34 PM [place] mg/dL [facility] Nitrite Urine Negative NEG^Nega 10/18/2017 [facility] tive 10:34 PM [facility] Leukocyte Negative NEG^Nega 10/18/2017 [place] Esterase Urine tive 10:34 PM [facility] Source Catheterized 10/18/2017 [place] Urine 10:25 PM [facility] WBC Urine 3 0 - 5 10/18/2017 [facility] /HPF 10:34 PM [facility] RBC Urine 2 0 - 2 10/18/2017 [facility] /HPF 10:34 PM [facility] Squamous <1 0 - 1 10/18/2017 [facility] Epithelial /HPF /HPF 10:34 PM [facility] Urine [facility] Transitional Epi 1 0 - 1 10/18/2017 [facility] /HPF 10:34 PM [facility] Mucous Urine Present (A) NEG^Nega 10/18/2017 [facility] tive 10:34 PM [place] /LPF [facility] Hyaline Casts 1 0 - 2 10/18/2017 [place] /LPF 10:34 PM [facility] Amorphous Few (A) NEG^Nega 10/18/2017 [place] Crystals tive 10:34 PM [facility] Specimen (Source) Anatomical Location Collection Method Collection Time Received Time / Laterality / Volume Urine specimen URINE SPECIMEN 10/18/2017 10:18 018 collection, COLLECTION, PM CDT 10:25 PM CDT catheterized CATHETERIZED / (procedure) Unknown Silver Dawkins MD LAB - URINE ORDERABLES Performing Organization Address City/State/ZIP Code Phon e Number [place] [address] [address] [place] [address] [facility] [address] [phone] EKG 12 lead (10/18/2017 9:43 PM CDT) [facility] gist Method Time Signature Interpretation ECG Click View RADIOLOGY Image link RESULTS to view waveform and result Specimen (Source) Anatomical Collection Method Collection Time Re ceived Time Location / / Volume Laterality 10/18/2017 9:43 PM CDT Silver Dawkins MD ECG ORDERABLES Performing Organization Address City/State/ZIP [facility] Phon e Number RADIOLOGY RESULTS Magnesium (10/18/2017 9:34 PM CDT) athologist Signature Magnesium 2.2 1.6 - 2.3 10/19/2017 [facility] mg/dL 2:02 AM CDT HOSPITAL Specimen Anatomical Collection Method Collection Time Receive d Time (Source) Location / / Volume Laterality 10/18/2017 9:34 PM 8 9:59 CDT PM CDT Silver Dawkins MD LAB - BLOOD ORDERABLES Performing Organization Address [facility] Phon e Number [facility] [address], [place] [address] [facility] [address], [place] [address], [facility] [phone] Lactic acid whole blood (10/18/2017 9:34 PM CDT) athologist Signature Lactic Acid 1.6 0.7 - 2.0 10/18/2017 [place] mmol/L 10:04 PM [facility] Specimen Anatomical Collection Method Collection Time Receive d Time (Source) Location / / Volume Laterality 10/18/2017 9:34 PM 8 CDT 10:00 PM CDT Silver Dawkins MD LAB - BLOOD ORDERABLES Performing Organization Address [facility] e [facility] [address], [place] [address] [facility] [address], [place] [address], [facility] [phone] Troponin I (10/18/2017 9:34 PM CDT) athologist Signature Troponin I ES <0.015 0.000 - 10/18/2017 [place] 0.045 ug/L 10:25 PM [facility] Comment: The 99th percentile for upper reference range is 0.045 ug/L. ??Troponin values in the range of 0.045 - 0.120 ug/L may b e associated with risks of adverse clinical events. Specimen Anatomical Collection Method Collection Time Receive d Time (Source) Location / / Volume Laterality Blood specimen 10/18/2017 9:34 PM 018 9:59 (specimen) CDT PM CDT Silver Dawkins MD LAB - BLOOD ORDERABLES Performing Organization Address City/[facility]/ZIP Code Phon e Number [facility] [address], [place] [address] [place] [address] [address], [place] [address], [facility] [phone] (ABNORMAL) Phosphorus (10/18/2017 9:34 PM CDT) athologist Signature Phosphorus 1.4 (L) 2.5 - 4.5 10/18/2017 [place] mg/dL 10:25 PM [facility] Specimen Anatomical Collection Method Collection Time Receive d Time (Source) Location / / Volume Laterality Blood specimen 10/18/2017 9:34 PM 018 9:59 (specimen) CDT PM CDT Silver Dawkins MD LAB - BLOOD ORDERABLES Performing Organization Address [facility]/ZIP [facility] Phon e Number [facility] [address], [place] [address] [place] [address] [address], [place] [address], [facility] [phone] (ABNORMAL) CK total (10/18/2017 9:34 PM CDT) athologist Signature CK Total 7,030 (HH) 30 - 225 10/18/2017 [place] U/L 11:01 PM [facility] Comment: Specimen run with a dilution Critical Value called to and read back Lindsay BAHENA ([place]) ON 10.18.2017 AT 230 0 SP Specimen Anatomical Collection Method Collection Time Receive d Time (Source) Location / / Volume Laterality Blood specimen 10/18/2017 9:34 PM 018 9:59 (specimen) CDT PM CDT Silver Dawkins MD LAB - BLOOD ORDERABLES Performing Organization Address City/[facility]/ZIP Code Phon e Number [facility] [address], [place] [address] [facility] [address] [place], [place] [address], [facility] [phone] (ABNORMAL) Comprehensive metabolic panel (10/18/2017 9:34 PM [facility]) P athologist Signature Sodium 137 133 - 144 10/18/2017 [place] mmol/L 10:25 PM [facility] Potassium 3.1 (L) 3.4 - 5.3 10/18/2017 [place] mmol/L 10:25 PM [facility] Chloride 102 94 - 109 10/18/2017 [place] mmol/L 10:25 PM [facility] Carbon Dioxide 28 20 - 32 10/18/2017 [place] mmol/L 10:25 PM [facility] Anion Gap 7 3 - 14 10/18/2017 [place] mmol/L 10:25 PM [facility] Glucose 125 (H) 70 - 99 10/18/2017 [place] mg/dL 10:25 PM [facility] Urea Nitrogen 40 (H) 7 - 30 10/18/2017 [place] mg/dL 10:25 PM [facility] Creatinine 0.74 0.52 - 10/18/2017 [place] 1.04 mg/dL 10:25 PM [facility] GFR Estimate 78 >60 10/18/2017 [place] mL/min/1.7 10:[address] Comment: Non GFR Calc GFR Estimate If >90 >60 mL/min/1.7m2 10/18/2017 10:25 PM [facility] Comment: GFR Calc Calcium 8.7 8.5 - 10.1 10/18/2017 10:[address] [facility] mg/dL [facility] Bilirubin Total 1.7 (H) 0.2 - 1.3 mg/dL 10/18/2017 10:25 P [facility] Albumin 2.5 (L) 3.4 - 5.0 g/dL 10/18/2017 10:25 PM [facility] Protein Total 7.1 6.8 - 8.8 g/dL 10/18/2017 10:25 PM [facility] Alkaline Phosphatase 74 40 - 150 U/L 10/18/2017 10:25 PM [facility] ALT 57 (H) 0 - 50 U/L 10/18/2017 10:25 PM [facility] AST 275 (H) 0 - 45 U/L 10/18/2017 10:25 PM [facility] Specimen Anatomical Collection Method Collection Time Receive d Time (Source) Location / / Volume Laterality Blood specimen 10/18/2017 9:34 PM 018 9:59 (specimen) CDT [facility] Silver Dawkins MD LAB - BLOOD ORDERABLES Performing Organization Address City/State/ZIP Code Phon e Number [place] [address] [address] [place] [address] [facility] [address] [phone] (ABNORMAL) CBC with platelets differential (10/18/2017 9:34 PM [facility]) [facility] gist Method Time Signature WBC 16.5 (H) 4.0 - 10/18/2017 [facility] 11.0 10:06 PM [facility] 10e9/L [facility] RBC Count 4.31 3.8 - 5.2 10/18/2017 [facility] 10e12/L 10:06 PM [facility] Hemoglobin 13.6 11.7 - 10/18/2017 [facility] 15.7 g/dL 10:06 PM [facility] Hematocrit 39.4 35.0 - 10/18/2017 [facility] 47.0 % 10:06 PM [facility] MCV 91 78 - 100 10/18/2017 [facility] fl 10:06 PM [facility] MCH 31.6 26.5 - 10/18/2017 [facility] 33.0 pg 10:06 PM [facility] MCHC 34.5 31.5 - 10/18/2017 [facility] 36.5 g/dL 10:06 PM [facility] RDW 12.9 10.0 - 10/18/2017 [facility] 15.0 % 10:06 PM [facility] Platelet Count 193 150 - 450 10/18/2017 [facility] 10e9/L 10:06 PM [facility] Diff Method Automated 10/18/2017 [facility] Method 10:06 [facility] % Neutrophils 88.6 % 10/18/2017 [facility] 10:06 [facility] % Lymphocytes 2.1 % 10/18/2017 [facility] 10:06 [facility] % Monocytes 7.8 % 10/18/2017 [facility] 10:06 [facility] % Eosinophils 0.0 % 10/18/2017 [facility] 10:06 [facility] % Basophils 0.6 % 10/18/2017 [facility] 10:06 [facility] % Immature 0.9 % 10/18/2017 [place] Granulocytes 10:06 [facility] Nucleated RBCs 0 0 /100 10/18/2017 [place] 10:06 [facility] Absolute 14.6 (H) 1.6 - 8.3 10/18/2017 [place] Neutrophil 10e9/L 10:06 [facility] Absolute 0.4 (L) 0.8 - 5.3 10/18/2017 [place] Lymphocytes 10e9/L 10:06 [facility] Absolute 1.3 0.0 - 1.3 10/18/2017 [place] Monocytes 10e9/L 10:06 [facility] Absolute 0.0 0.0 - 0.7 10/18/2017 [place] Eosinophils 10e9/L 10:06 [facility] Absolute 0.1 0.0 - 0.2 10/18/2017 [place] Basophils 10e9/L 10:06 [facility] Abs Immature 0.2 0 - 0.4 10/18/2017 [place] Granulocytes 10e9/L 10:06 [facility] Absolute 0.0 10/18/2017 [place] Nucleated RBC 10:06 [facility] Specimen Anatomical Collection Method Collection Time Receive d Time (Source) Location / / Volume Laterality Blood specimen 10/18/2017 9:34 PM 018 9:59 (specimen) CDT [facility] Silver Dawkins MD LAB - BLOOD ORDERABLES Performing Organization Address City/State/ZIP Code Phon e Number M [facility] [address], [place] [address] [facility] [address] [place], [place] [address] [facility] [phone] documented in this encounter Visit Diagnoses Diagnosis Cellulitis of left lower extremity - Jsesica antonia Cellulitis and abscess of leg, except fo ot Non-traumatic rhabdomyolysis Gastroesophageal reflux disease without esophagitis Esophageal reflux Rhabdomyolysis documented in this encounter Administered Medications Inactive Administered Medications - up to 3 most recent administrations Medication Order MAR Action Action Date Dose Rate Site 0.9% sodium chloride BOLUS New Bag 10/18/2017 9:43 PM CDT 1,000 mLs 2000 mL/hr Intravenous, 1,000 mL, ONCE, at 2,000 mL/hr, Administer over 30 Minutes, On Mon10/18/17 at 2233, For 1 dose 0.9% sodium chloride BOLUS New Bag 10/18/2017 11:07 PM 1,000 mLs 2000 mL/hr Intravenous, 1,000 mL, ONCE, at CDT 2,000 mL/hr, Administer over 30 Minutes, On Mon10/18/17 at 2305, For 1 dose acetaminophen (TYLENOL) tablet 650 mg Given 10/21/2017 8:50 AM CDT 650 mg 650 mg, Oral, EVERY 4 HOURS PRN, mild pain, Starting on Deepali 10/19/17 at 0126, Alternate ibuprofen (if ordered) with acetaminophen. Maximum acetaminophen dose from all sources = 75 mg/kg/day not to exceed 4 grams/day. ascorbic acid (VITAMIN C) tablet 500 mg Given 10/25/2017 9:51 AM CDT 500 mg 500 mg, Oral, DAILY, First dose on Mon10/20/17 at 1345, For 10 days Given 10/24/2017 9:36 AM CDT 500 mg Given 10/23/2017 8:39 AM CDT 500 mg atenolol (TENORMIN) tablet 25 mg Given 10/19/2017 1:54 AM CDT 25 mg 25 mg, Oral, 2 TIMES DAILY, First dose on Mon10/19/17 at 0145, Hold for sbp < 110 beta carotene capsule 25,000 Units Given 10/25/2017 9:51 AM CDT 25,000 Units 25,000 Units, Oral, DAILY, First dose on Mon10/21/17 at 1015, For 10 days Given 10/24/2017 9:35 AM CDT 25,000 Units Given 10/23/2017 8:39 AM CDT 25,000 Units clindamycin (CLEOCIN) capsule 600 mg Given 10/25/2017 1:39 PM CDT 600 mg Routine, 600 mg, Oral, EVERY 8 HOURS SCHEDULED, First dose on Mon10/24/17 at 1400, Indications: Skin and Soft Tissue Infection Given 10/25/2017 5:47 AM CDT 600 mg Given 10/24/2017 9:15 PM CDT 600 mg clindamycin (CLEOCIN) infusion 900 New Bag 10/18/2017 11:08 PM CDT 900 mg 50 mL/hr mg STAT, 900 mg, Intravenous, ONCE, On Mon10/18/17 at 2300, For 1 dose, Indications: Skin and Soft Tissue Infection clindamycin (CLEOCIN) infusion 900 New Bag 10/24/2017 5:54 AM CDT 900 mg 50 mL/hr mg Routine, 900 mg, Intravenous, EVERY 8 HOURS, First dose (after last reorder) on Mon10/19/17 at 0600, Indications: Skin and Soft Tissue Infection New Bag 10/23/2017 10:08 PM CDT 900 mg 50 mL/hr New Bag 10/23/2017 2:53 PM CDT 900 mg 50 mL/hr enoxaparin (LOVENOX) injection 105 mg Given 10/20/2017 8:38 AM CDT 0.7 mg 105 mg (rounded from 109.4 mg = 1 mg/kg ? 109.4 kg Adjusted weight), Subcutaneous, EVERY 12 HOURS, First dose on Mon10/19/17 at 1330 Given 10/19/2017 6:21 PM CDT 105 mg lactobacillus rhamnosus (GG) (CULTURELL) Given 10/25/2017 9: 52 AM CDT 1 capsule capsule 1 capsule 1 capsule, Oral, 2 TIMES DAILY, First dose on Mon10/24/17 at 1000, Administer at least 2 hours before or after oral antibiotics. Capsules may be opened. Given 10/24/2017 8:34 PM CDT 1 capsule Given 10/24/2017 12:11 PM CDT 1 capsule metoprolol (LOPRESSOR) injection 2.5 mg 2.5 mg, Intravenous, EVERY 4 HOURS PRN, other, HR > 12 0, hold for SBP < 90, Starting on Mon10/19/17 at 0703, For ordered doses up t o 15 mg, give IV Push undiluted over 5-10 minutes. metoprolol tartrate (LOPRESSOR) half-tab Given 10/24/2017 9:44 A M CDT 37.5 mg 37.5 mg 37.5 mg, Oral, 2 TIMES DAILY, First dose (after last modification) on Mon10/20/17 at 2000, Hold if SBP <100 or HR < 55 Given 10/23/2017 8:42 PM CDT 37.5 mg Given 10/23/2017 8:38 AM CDT 37.5 mg metoprolol tartrate (LOPRESSOR) tablet 2 5 mg Given 10/20/2017 8:37 AM CDT 25 mg 25 mg, Oral, 2 TIMES DAILY, First dose on Mon10/19/17 at 1100, Hold if SBP <100 or HR < 55 Given 10/19/2017 8:44 PM CDT 25 mg metoprolol tartrate (LOPRESSOR) tablet 5 0 mg Given 10/25/2017 9:53 AM CDT 50 mg 50 mg, Oral, 2 TIMES DAILY, First dose (after last modification) on Mon10/24/17 at 2000, Hold if SBP <100 or HR < 55 Given 10/24/2017 8:34 PM CDT 50 mg multivitamin, therapeutic with minerals Given 10/25/2017 9:53 AM CDT 1 tablet (THERA-VIT-M) tablet 1 tablet 1 tablet, Oral, DAILY, First dose on Mon10/20/17 at 1345 Given 10/24/2017 9:36 AM CDT 1 tablet Given 10/23/2017 8:38 AM CDT 1 tablet omeprazole (priLOSEC) CR capsule 40 mg Given 10/25/2017 11:37 AM CDT 40 mg 40 mg, Oral, EVERY MORNING, First dose on Mon10/25/17 at 1030 ondansetron (ZOFRAN) injection 4 mg 4 mg, Intravenous, EVERY 6 HOURS PRN, nausea, vomiting , Administer over 2-5 Minutes, Starting on Mon10/19/17 at 0126, This is Step 1 of nausea and vomiting management. If nausea not resolved in 15 minutes, go t o Step 2 prochlorperazine (COMPAZINE). Irritant. For ordered doses up to 4 mg, give IV Push undiluted over 2-5 minutes. ondansetron (ZOFRAN-ODT) ODT tab 4 mg Given 10/19/2017 6:00 AM CDT 4 mg 4 mg, Oral, EVERY 6 HOURS PRN, nausea, vomiting, Starting on Deepali 10/19/17 at 0126, This is Step 1 of nausea and vomiting management. If nausea not resolved in 15 minutes, go to Step 2 prochlorperazine (COMPAZINE). Do not push through foil backing. Peel back foil and gently remove. Place on tongue immediately. Administration with liquid unnecessary With dry hands, peel back foil backing and gently remove tablet; do not push oral disintegrating tablet through foil backing; administer immediately on tongue and oral disintegrating tablet dissolves in seconds; then swallow with saliva; liquid not required. perflutren diluted 1mL to 2mL with saline Given 10/19/2017 2:30 PM CDT 2 mLs (OPTISON) diluted injection 2 mL 2 mL, Intravenous, ONCE, On Deepali 10/19/17 at 1430, For 1 dose, [facility] [id number] potassium chloride (KLOR-CON) Packet 20-40 Given 10/19/2017 4:07 AM CDT 20 mEq mEq 20-40 mEq, Oral or Feeding Tube, EVERY 2 HOURS PRN, potassium supplementation, Starting on Deepali 10/19/17 at 0126, Use if unable to tolerate tablets. If Serum K+ 3.0-3.3, dose = 60 mEq po total dose (40 mEq x1 followed in 2 hours by 20 mEq x1). Recheck K+ level 4 hours after dose and the next AM. If Serum K+ 2.5-2.9, dose = 80 mEq po total dose (40 mEq Q2H x2). Recheck K+ level 4 hours after dose and the next AM. If Serum K+ less than 2.5, See IV order. Dissolve packet contents in 4-8 ounces of cold water or juice. Given 10/19/2017 2:13 AM CDT 40 mEq potassium phosphate 15 mmol in D5W 250 mL New Bag 2017 1:30 AM CDT 15 mmol intermittent infusion 15 mmol, Intravenous, Administer over 4 Hours, DAILY PRN, phosphorous supplementation, Starting on Deeapli 10/19/17 at 1051, For serum phosphorus level 2-2.4 Do not infuse Phosphorus in the same line as TPN. Give 15 mmol and recheck phosphorus level next AM. Each mmol of phosphate provides 1.47 mEq of Potassium. Multiply the patient's phosphate dose by 1.47 to determine the amount of potassium in this dose. potassium phosphate 20 mmol in D5W 250 m L intermittent infusion 20 mmol, Intravenous, Administer over 4 Hours, EVERY 6 HOURS PRN, phosphorous supplementation, Starting on Deepali 10/19/17 at 1051, For serum phosphorus level 1.1-1.9 For CENTRAL Line ONLY Do not infuse Phosphorus in the same line as TPN. Give 20 mmol and recheck phosphorus level 2 hour s after last dose and next AM. Each mmol of phosphate provides 1.47 mEq of Potassium . Multiply the patient's phosphate dose by 1.47 to determine the amount of potassium in this dose . potassium phosphate 20 mmol in D5W 500 mL New Bag 2017 4:12 PM CDT 20 mmol intermittent infusion 20 mmol, Intravenous, Administer over 4 Hours, EVERY 6 HOURS PRN, phosphorous supplementation, Starting on Deepali 10/19/17 at 1051, For serum phosphorus level 1.1-1.9 For Peripheral Line Do not infuse Phosphorus in the same line as TPN. Give 20 mmol and recheck phosphorus level 2 hours after last dose and next AM. Each mmol of phosphate provides 1.47 mEq of Potassium. Multiply the patient's phosphate dose by 1.47 to determine the amount of potassium in this dose. potassium phosphate 25 mmol in D5W 500 m L intermittent infusion 25 mmol, Intravenous, Administer over 6 Hours, EVERY 8 HOURS PRN, phosphorous supplementation, Starting on Deepali 10/19/17 at 1051, For serum phosphorus level less than 1.1 Do not infuse Phosphorus in the same line as TPN. Give 25 mmol and recheck phosphorus level 2 hours after last dose and next AM. Each mmol of phosphate provides 1.47 mEq of Potassium. Multiply the patient's phosphate dose by 1.47 to determine the amount of potassium in this dose. sodium chloride (PF) 0.9% PF flush 10 mL Given 10/19/2017 2:30 PM CDT 10 mLs 10 mL, Intravenous, ONCE, On Deepali 10/19/17 at 1430, For 1 dose sodium chloride (PF) 0.9% PF flush 3 mL Given 10/25/2017 1:39 AM CDT 3 mLs 3 mL, Intracatheter, EVERY 8 HOURS, First dose on Mon10/24/17 at 2130 Given 10/24/2017 10:22 PM CDT 3 mLs sodium chloride 0.9% infusion New Bag 10/23/2017 8:42 PM CDT 100 mL/hr at 100 mL/hr, Intravenous, CONTINUOUS, Starting on Mon10/19/17 at 0130, Until Mon10/24/17 at 0943 Rate/Dose Change 10/23/2017 11:00 AM CDT 100 mL/hr New Bag 10/23/2017 9:20 AM CDT 125 mL/hr warfarin (COUMADIN) tablet 1 mg Given 10/21/2017 5:24 PM CDT 1 mg 1 mg, Oral, ONCE AT 6PM, On Mon10/21/17 at 1800, For 1 dose warfarin (COUMADIN) tablet 10 mg Given 10/19/2017 6:21 PM CDT 10 mg 10 mg, Oral, ONCE AT 6PM, On Mon10/19/17 at 1800, For 1 dose warfarin (COUMADIN) tablet 10 mg Given 10/20/2017 5:38 PM CDT 10 mg 10 mg, Oral, ONCE AT 6PM, On Mon10/20/17 at 1800, For 1 dose warfarin (COUMADIN) tablet 10 mg 10 mg, Oral, ONCE AT 6PM, On Mon10/25/17 at 1800, For 1 dose warfarin (COUMADIN) tablet 5 mg Given 10/22/2017 5:44 PM CDT 5 mg 5 mg, Oral, ONCE AT 6PM, On Mon10/22/17 at 1800, For 1 dose warfarin (COUMADIN) tablet 7.5 mg Given 10/23/2017 6:39 PM CDT 7.5 mg 7.5 mg, Oral, ONCE AT 6PM, On Mon10/23/17 at 1800, For 1 dose warfarin (COUMADIN) tablet 7.5 mg Given 10/24/2017 7:05 PM CDT 7.5 mg 7.5 mg, Oral, ONCE AT 6PM, On Mon10/24/17 at 1800, For 1 dose zinc sulfate (ZINCATE) capsule 220 mg Given 10/25/2017 9:54 AM CDT 220 mg 220 mg, Oral, DAILY, First dose on Mon10/20/17 at 1345, For 10 days Given 10/24/2017 9:36 AM CDT 220 mg Given 10/23/2017 8:39 AM CDT 220 mg documented in this encounter Active and Recently Administered Medications Times are shown in CDT. Scheduled Medication Order 10/23/2017 10/24/2017 10/25/2017 ascorbic acid (VITAMIN C) tablet 500 mg 0839 (Given - Provider: Arabella Lozano RN) 0936 (Given - Provider: Evon Dillon, CHANDLER) 0951 (Give n - Provider: Evon Dillon RN) 500 mg, Oral, DAILY, First dose on Mon10/20/17 at 1345, For 10 da ys beta carotene capsule 25,000 Units 0839 (Given - Provider: Fidencio Lozano RN) 0935 (Given - Provider: Evon Dillon, CHANDLER) 0951 (Given - Provider: Evon Dillon, CHANDLER) 25,000 Units, Oral, DAILY, First dose on Mon10/21/17 at 1015, For 10 days clindamycin (CLEOCIN) capsule 600 mg 155 0 (Given - Provider: Evon Dillon RN)2115 (Given - Provider: Columba Cortés, CHANDLER) 0547 (Given - Provider: Patience Mosqueda, RN)1339 (Given - Provider: Evon Dillon, CHANDLER) 600 mg, Oral, EVERY 8 HOURS SCHEDULED, F irst dose on Mon10/24/17 at 1400, Indications: Skin and Soft Tissue Infection clindamycin (CLEOCIN) infusion 900 mg (CANCELED) 0534 (New Bag - Provider: Joanna Mc RN)1453 (New Bag - Provider: Arabella Lozano RN)2208 (New Bag - Provider: Gaye Conde, CHANDLER) 0554 (New Bag - Provider: Patience Mosqueda, RN) 900 mg, Intravenous, EVERY 8 HOURS, Firs t dose on Mon10/19/17 at 0600, Indications: Skin and Soft Tissue Infection lactobacillus rhamnosus (GG) (CULTURELL) capsule 1 capsule 1211 (Given - Provider: Evon Dillon, CHANDLER)2034 (Given - Provider: Columba Cortés, CHANDLER) 0952 (Given - Provider: Evon Dillon, CHANDLER) 1 capsule, Oral, 2 TIMES DAILY, First do se on Mon10/24/17 at 1000, Administer at least 2 hours before or after oral antibiotics. Capsules may be opened. metoprolol tartrate (LOPRESSOR) half-tab 37.5 mg (CANC ELED) 0838 (Given - Provider: Arabella Lozano RN)2041 (Given - Provider: Gyae Conde RN) 0944 (Given - Provider: Evon Dillon, CHANDLER) 37.5 mg, Oral, 2 TIMES DAILY, First dose on Mon10/20/17 at 2000, Hold if SBP <100 or HR < 55 metoprolol tartrate (LOPRESSOR) tablet 50 mg 2033 (Given - Provider: Columba Cortés, CHANDLER) 0953 (Given - Provider: Evon Dillon RN) 50 mg, Oral, 2 TIMES DAILY, First dose o n Mon10/24/17 at 2000, Hold if SBP <100 or HR < 55 multivitamin, therapeutic with minerals (THERA-VIT-M) tablet 1 tablet 08 (Given - Provider: Arabella Lozano RN) 0936 (Given - Provider: Evon Dillon RN) 0953 (Given - Provider: Evon Dillon RN) 1 tablet, Oral, DAILY, First dose on Mon10/20/17 at 1345 omeprazole (priLOSEC) CR capsule 40 mg 1137 (Given - Provider: Evon Dillon RN) 40 mg, Oral, EVERY MORNING, First dose on Mon10/25/17 at 1030 sodium chloride (PF) 0.9% PF flush 3 mL (CANCELED) 2222 (Given - Provider: Bisi Rowland LPN) 0139 (Given - Provider: Patience disla RN)0552 (Canceled Entry - Provider: Columba Cortés, CHANDLER)0954 (Not Given - Provider: Evon Dillon RN - Reason: Loss of IV access) 3 mL, Intracatheter, EVERY 8 HOURS, First dose on Mon10/24/17 at 2130 warfarin (COUMADIN) tablet 10 mg 10 mg, Oral, ONCE AT 6PM, Mon10/25/17 at 1800, For 1 dose warfarin (COUMADIN) tablet 7.5 mg (COMPLETED) 1839 (Gi nina - Provider: Arabella Lozano RN) 7.5 mg, Oral, ONCE AT 6PM, 10/23/17 at 1800, For 1 dose warfarin (COUMADIN) tablet 7.5 mg (COMPLETED) 1905 (Given - Provider: Bisi Rowland LPN) 7.5 mg, Oral, ONCE AT 6PM, 10/24/17 at 1800, For 1 dose zinc sulfate (ZINCATE) capsule 220 mg 0839 (Given - Pr ovider: Arabella Lozano RN) 0936 (Given - Provider: Evon Dillon, CHANDLER) 0954 (Give n - Provider: Evon Dillon, RN) 220 mg, Oral, DAILY, First dose on Mon10/20/17 at 1345, For 10 da ys Continuous Medication Order 10/23/2017 10/24/2017 10/25/2017 sodium chloride 0.9% infusion (CANCELED) 0027 (New Bag - Provider: Joanna Mc, CHANDLER)0920 (New Bag - Provider: Dana Rees LPN)1100 (Rate/Dose Change - Provider: Arabella Lozano RN)2042 (New Bag - Provider: Gaye Conde, CHANDLER) at 100 mL/hr, Intravenous, CONTINUOUS, S tarting Deepali 10/19/17 at 0130, Until Mon10/24/17 at 0943 PRN Medication Order 10/23/2017 10/24/2017 10/25/2017 acetaminophen (TYLENOL) tablet 650 mg 650 mg, Oral, EVERY 4 HOURS PRN, mild pa in, Starting Deepali 10/19/17 at 0126, Alternate ibuprofen (if ordered) with acetaminophen. Maximum acetaminophen dose from all sources = 75 mg/kg/day not to exceed 4 grams/day. bisacodyl (DULCOLAX) Suppository 10 mg 10 mg, Rectal, DAILY PRN, constipation, Starting Deepali 10/19/17 at 0126, Hold for loose stools. This is the third step of a three step constipation treatment. HYDROmorphone (PF) (DILAUDID) injection 0.2 mg 0.2 mg, Intravenous, EVERY 2 HOURS PRN, Starting Deepali 10/19/17 at 0126, Until Mon10/25/17 at 1832, pain control or improvement in physical function. Hold dose for analgesic side effects., Notify provider t o assess for uncontrolled pain or analge sic side effects. Hold while on TRANSFUSION NURSE or with regular IV opioid dosing For ordered doses up to 4 mg give IV Push undiluted. Administer each 2mg over 2-5 minutes. magnesium sulfate 4 g in 100 mL sterile water (premade) 4 g, Intravenous, Administer over 120 Mi nutes, EVERY 4 HOURS PRN, Starting Deepali 10/19/17 at 0126, magnesium supplementation, For serum Mg++ less than 1.6 mg/dL Give 4 g and recheck magnesium level 2 hours after dose, and next AM. melatonin tablet 1 mg 1 mg, Oral, AT BEDTIME PRN, sleep, Start ing [facility] 10/19/17 at 0126, Do not give unless at least 6 hours of uninterrupted sleep is expected. metoprolol (LOPRESSOR) injection 2.5 mg 2.5 mg, Intravenous, EVERY 4 HOURS PRN, other, HR > 120, hold for SBP < 90, Starting [facility] 10/19/17 at 0703, For ordered doses up to 15 mg, give IV Push undiluted over 5-10 minutes. naloxone (NARCAN) injection 0.1-0.4 mg 0.1-0.4 mg, Intravenous, EVERY 2 MIN PRN , opioid reversal, Starting Deepali 10/19/17 at 0126, For respiratory rate LESS than or EQUAL to 8. Partial reversal dose: 0.1 mg titrated q 2 minutes for Analgesia Moo e Effects Monitoring Sedation Level of 3 (frequently drowsy, arousable, drifts to sleep during conversation).Full reversal dose: 0.4 mg bolus for Analgesia Side Effects Monitoring Sedation Level of 4 (s omnolent, minimal or no response to stim ulation). For ordered doses up to 2mg give IVP. Give each 0.4mg over 15 seconds in emergency situations. For non- emergent situations further dilute in 9mL of NS to facilitate titration of response. ondansetron (ZOFRAN) injection 4 mg(Linked Group 1) 4 mg, Intravenous, EVERY 6 HOURS PRN, na usea, vomiting, Administer over 2-5 Minutes, Starting Deepali 10/19/17 at 0126, This is Step 1 of nausea and vomiting management. If nausea not resolved in 15 minutes, go to Step 2 prochlorperazine (COMPAZINE ). Irritant. For ordered doses up to 4 mg, give IV Push undiluted over 2-5 minutes. ondansetron (ZOFRAN-ODT) ODT tab 4 mg(Linked Group 1) 4 mg, Oral, EVERY 6 HOURS PRN, nausea, v omiting, Starting [facility] 10/19/17 at 0126, This is Step 1 of nausea and vomiting management. If nausea not resolved in 15 minutes, go to Step 2 prochlorperazine (JUDITH ZINE). Do not push through foil backing. Peel back foil and gently remove. Place on tongue immediately. Administration with liquid unnecessary With dry hands, peel back foil backing and gently remove ta blet; do not push oral disintegrating ta blet through foil backing; administer immediately on tongue and oral disintegrating tablet dissolves in seconds; then swallow with saliva; liquid not required. oxyCODONE IR (ROXICODONE) tablet 5-10 mg 5-10 mg, Oral, EVERY 3 HOURS PRN, pain c ontrol or improvement in physical function. Hold dose for analgesic side effects., Starting [facility] 10/19/17 at 0126, Start with the lowest dose. May adjust dose by 5 m g every 3 hours as needed. Notify provid er to assess for uncontrolled pain or analgesic side effects. Hold while on TRANSFUSION NURSE or with regular IV opioid dosing. potassium chloride (KLOR-CON) Packet 20-40 mEq 20-40 mEq, Oral or Feeding Tube, EVERY 2 HOURS PRN, Starting [facility] 10/19/17 at 0126, potassium supplementation, Use if unable to tolerate tablets. If Serum K+ 3.0- 3.3, dose = 60 mEq po total dose (40 mEq x1 followed in 2 hours by 20 mEq x1). Rech treasure K+ level 4 hours after dose and the next AM. If Serum K+ 2.5-2.9, dose = 80 mEq po total dose (40 mEq Q2H x2). Recheck K+ level 4 hours after dose and the nex t AM. If Serum K+ less than 2.5, See IV order. Dissolve packet contents in 4-8 ounces of cold water or juice. potassium chloride 10 mEq in 100 mL intermittent infusion wi 10 mg lidocaine 10 mEq, Intravenous, Administer over 1 H ours, EVERY 1 HOUR PRN, Starting [facility] 10/19/17 at 0126, potassium supplementation, Infuse via PERIPHERAL LINE. Use potassium with lidocaine for pain with peripheral administration. If Serum K+ 3.0-3.3, dos e = 10 mEq/hr x4 doses (40 mEq IV total dose). Recheck K+ level 2 hours after dose and the next AM. If Serum K+ less than 3.0, dose = 10 mEq/hr x6 doses (60 mEq I V total dose). Recheck K+ level 2 hours after dose and the next AM. potassium chloride 10 mEq in 100 mL ster ile water intermittent infusion (premix) 10 mEq, Intravenous, Administer over 60 Minutes, EVERY 1 HOUR PRN, Starting [facility] 10/19/17 at 0126, potassium supplementation, Infuse via PERIPHERAL LINE or CENTRAL LINE. Use for central line replacement if patient weight less than 65 kg, if latoya ent is on TPN with high potassium content or if unit does not stock 20 mEq bags. If Serum K+ 3.0-3.3, dose = 10 mEq/hr x4 doses (40 mEq IV total dose). Recheck K+ level 2 hours after dose and the next A M. If Serum K+ less than 3.0, dose = 10 mEq/hr x6 doses (60 mEq IV total dose). Recheck K+ level 2 hours after dose and the next AM. potassium chloride 20 mEq in 50 mL intermittent infusion 20 mEq, Intravenous, EVERY 1 HOUR PRN, S tarting [facility] 10/19/17 at 0126, potassium supplementation, Infuse via CENTRAL LINE Only. May need EKG if less than 65 kg or on TPN - Max rate is 0.3 mEq/kg/hr for pat ients not on EKG monitoring. If Serum K+ 3.0-3.3, dose = 20 mEq/hr x2 doses (40 mEq IV total dose). Recheck K+ level 2 hours after dose and the next AM. If Serum K+ less than 3.0, dose = 20 mEq/hr x3 do ses (60 mEq IV total dose). Recheck K+ l evel 2 hours after dose and the next AM. potassium chloride SA (K-DUR/KLOR-CON M) CR tablet 20-40 mEq 20-40 mEq, Oral, EVERY 2 HOURS PRN, Star ting [facility] 10/19/17 at 0126, potassium supplementation, Use if able to take PO. If Serum K+ 3.0-3.3, dose = 60 mEq po total dose (40 mEq x1 followed in 2 hours by 20 mEq x1). Recheck K+ level 4 hours after dose and the next AM. If Serum K+ 2.5- 2.9, dose = 80 mEq po total dose (40 mEq Q2H x2). Recheck K+ level 4 hours after dose and the next AM. If Serum K+ less than 2.5, See IV order. DO NOT CRUSH potassium phosphate 15 mmol in D5W 250 mL intermittent infusion 15 mmol, Intravenous, Administer over 4 Hours, DAILY PRN, Starting Deepali 10/19/17 at 1051, phosphorous supplementation, For serum phosphorus level 2-2.4 Do not infuse Phosphorus in the same line as TPN. Giv e 15 mmol and recheck phosphorus level n ext AM. Each mmol of phosphate provides 1.47 mEq of Potassium. Multiply the patient's phosphate dose by 1.47 to determine the amount of potassium in this dose. potassium phosphate 20 mmol in D5W 250 mL intermittent infusion 20 mmol, Intravenous, Administer over 4 Hours, EVERY 6 HOURS PRN, Starting Deepali 10/19/17 at 1051, phosphorous supplementation, For serum phosphorus level 1.1-1.9 For CENTRAL Line ONLY Do not infuse Phospho alba in the same line as TPN. Give 20 mmo l and recheck phosphorus level 2 hours after last dose and next AM. Each mmol of phosphate provides 1.47 mEq of Potassium. Multiply the patient's phosphate dose b y 1.47 to determine the amount of potassium in this dose. potassium phosphate 20 mmol in D5W 500 mL intermittent infusion 20 mmol, Intravenous, Administer over 4 Hours, EVERY 6 HOURS PRN, Starting Deepali 10/19/17 at 1051, phosphorous supplementation, For serum phosphorus level 1.1-1.9 For Peripheral Line Do not infuse Phosphoru s in the same line as TPN. Give 20 mmol and recheck phosphorus level 2 hours after last dose and next AM. Each mmol of phosphate provides 1.47 mEq of Potassium. Multiply the patient's phosphate dose by 1.47 to determine the amount of potassium in this dose. potassium phosphate 25 mmol in D5W 500 mL intermittent infusion 25 mmol, Intravenous, Administer over 6 Hours, EVERY 8 HOURS PRN, Starting Deepali 10/19/17 at 1051, phosphorous supplementation, For serum phosphorus level less than 1.1 Do not infuse Phosphorus in the same line as TPN. Give 25 mmol and recheck ph osphorus level 2 hours after last dose and next AM. Each mmol of phosphate provides 1.47 mEq of Potassium. Multiply the patient's phosphate dose by 1.47 to determine the amount of potassium in this dose. Warfarin Therapy Reminder (Check START D ATE - warfarin may be starting in the FUTURE) CONTINUOUS PRN, Starting Deepali 10/19/17 at 0 126, Until Mon10/25/17 at 1832, *Note to reorder warfarin daily* Pharmacy Warfarin Dosing Service Patient is on Warfarin Therapy - check for daily order Linked Groups Order Group 1: ondansetron (ZOFRAN-ODT) ODT tab 4 mgJump to med 4 mg, Oral, EVERY 6 HOURS PRN, nausea, v omiting, Starting [facility] 10/19/17 at 0126
This is Step 1 of nausea and vomiting management. If nausea not resolved in 15 minutes, go to Mikey p 2 prochlorperazine (COMPAZINE). Do not push through foil backing. Peel back foil and gently remove. Place on tongue immediately. Administration with liquid unnecessary With dry hands, peel ba ck foil backing and gently remove tablet ; do not push oral disintegrating tablet through foil backing; administer immediately on tongue and oral disintegrating tablet dissolves in seconds; then swallow with saliva; liquid not required.
Or ondansetron (ZOFRAN) injection 4 mgJump to med 4 mg, Intravenous, EVERY 6 HOURS PRN, na usea, vomiting, Administer over 2-5 Minutes, Starting Deepali 10/19/17 at 0126
This is Step 1 of nausea and vomiting management. If nausea n ot resolved in 15 minutes, go to Step 2 prochlorperazine (COMPAZINE). Irritant. For ordered doses up to 4 mg, give IV Push undiluted over 2-5 minutes.
documented in this encounter Care Teams Solar Installation Manager Relationship Specialty Start Date End Date Lucero Stevenson MD PCP - General Pediatrics 10/11/11 04/22/19 Chastity Montero MD MD Dermatology 09/23/14 [address] [facility] [address] [place], [place] [id number] Johnnie Alcocer MD Surgeon General Surgery 03/23/17 [address] [facility] [facility] [address] [place] [address] documented as of this encounter
--- OUTSIDE RECORDS SUMMARY | 2022-06-15 13:15 | XMS_ITS | Encounter Summary ---
:1945 Author Organization [facility] Address [address] [place] [address] Care Team Providers Name Role Phone Lucero Stevenson MD Primary Care Provider [phone] Chastity Montero MD Unavailable [phone] Johnnie Alcocer MD Unavailable Reason for Visit Rehab Therapy Integrated Services (Routine) - Closed Specialty Diagnoses / Procedures Referred By Contact Refer red To Contact Diagnoses MEDICARE//Lymphedema of both lower extremities [facility] Procedures LYMPHEDEMA [facility] [address] [facility] [address] [place] [address] Phone: Fax: Referral ID Status Reason Start Date Expiration Date Visits V isits Requested Authorized EH-PT/OT/SYSTEMS NAVIGATOR Closed 03/23/2017 07/16/[phone] ([id number]) Encounter Details Date Type Department Care Team Description 04/25/2017 Hospital Encounter [facility] Chele Ly mphedema of both lower extremities (Primary Dx); Rehabilitation A Difficulty dressing self Services [facility] [address] [place] [address] [facility] [phone] [place] [address] Social History Tobacco Use Types Packs/Day Years [...] 05/03/2021 organizations such as congregational groups, unions, fraInfluxDB or athletic groups, or school groups? How [...] 10/04/2021 D PO) mouth daily desoximetasone Apply 1 g topically 180 g 3 04/24/2017 0 10/18/2017 (TOPICORT) 0.05 % two times daily GELIndications: Dermatitis Elastic Bandages & Please 2 each 3 01/04/20162017 Supports (JOBST KNEE custom-measure for HIGH COMPRESSION SM) ZIPPERED knee-high MISCIndications: Venous compression stasis dermatitis of stockings. 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 ORDER FOR daily Auto-CPAP: Max 11 cm H2O, Min 11cm H2O 1 Device 0 08/26/2013 10/18/2017 DMEIndications: Obstructive sleep apnea Continuous, Lifetime need and heated humidity . (adult) (pediatric) triamterene-hydrochlorot Take 1 capsule by 90 capsule 3 12/1610/25/2017 hiazide (DYAZIDE) mouth every morning 37.5-25 MG per capsuleIndications: Essential hypertension, benign warfarin (COUMADIN) 10 Take 10mg MWF or as 40 tablet 1 11/1405/20/2017 MG tabletIndications: directed by INR oil heaterman current use of clinic anticoagulant therapy warfarin (COUMADIN) 7.5 Take 7.5mg TTSS or 50 tablet 1 11/1405/22/2017 MG tabletIndications: as directed by INR care home current use of Clinic. anticoagulant therapy documented as of this encounter Plan of Treatment Upcoming Encounters Date Type Specialty Care Team Description 11/15/2022 Virtual Visit Pharm D Haylie Cheung, [facility] [address] [facility] [place] [address] (Wo winter) 11/15/2022 Virtual Visit IM/Peds Yane Barraza MD [address] [facility] [place] [address] (Lena max) 03/03/2023 Virtual Visit Neurology Erlinda Barber MD [address] [facility] [address] [place], [place] [address] (Wo winter) documented as of this encounter Visit Diagnoses Diagnosis Lymphedema of both lower extremities - P rimary Difficulty dressing self documented in this encounter Care Teams Statement Distribution Clerk Relationship Specialty Start Date End Date Lucero Stevenson MD PCP - General Pediatrics 10/11/11 04/22/19 Chastity Montero MD MD Dermatology 09/23/14 [address] [facility] [address] [place] [address] Johnnie Alcocer MD Surgeon General Surgery 03/23/17 [address] [facility] [address] [place] [address] documented as of this encounter
--- OUTSIDE RECORDS SUMMARY | 2022-06-15 13:15 | XMS_ITS | Encounter Summary ---
:1945 Author Organization [facility] Address [address] [place] [address] Care Team Providers Name Role Phone Lucero Stevenson MD Primary Care Provider [phone] Chastity Montero MD Unavailable [phone] Johnnie Alcocer MD Unavailable Encounter Details Date Type Department Care Team Description 05/08/2017 Anticoagulation Therapy [facility] Pulmonary embolism Visit Clinic [place] and infarction (H) [address] [facility] [address] [place] [address] [...] encounter Progress Notes Qing Guy, CHANDLER - 05/08/2017 12:15 PM CDT ANTICOAGULATION FOLLOW-UP CLINIC VISIT Patient Name: Charlette Brush Date: 05/08/2017 Contact Type: Face to Face SUBJECTIVE: Patient Findings Positives No Problem Findings OBJECTIVE INR Protime Date Value Ref Range Status 05/08/2017 2.1 (A) 0.86 - 1.14 Final ASSESSMENT / PLAN INR assessment THER Recheck INR In: 4 WEEKS INR Location Clinic Anticoagulation Summary as of 05/08/2017 INR goal 2.0-3.0 Today's INR 2.1 Maintenance plan 10 mg (10 mg x 1) on Mon, Wed, Fri; 7.5 mg (7.5 mg x 1) all other days Full instructions 10 mg on Mon, Wed, Fri; 7.5 mg all other days Weekly total 60 mg No change documented Qing Guy, RN Plan last modified Susie Murphy (09/26/2016) Next INR check 06/05/2017 Target end date Indefinite Indications 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] Anticoagulation Episode Summary INR check location Coumadin Clinic Preferred lab Send INR reminders to [facility] Comments 7.5mg & 10mg tabs - devaughn dose // APPT CARD ONLY Anticoagulation Care Providers Provider Role Specialty Phone number Lucero Stevenson MD Pediatrics [phone] See the Encounter Report to view Anticoagulation Flowsheet and Dosing Calendar (Go to Encounters tabin chart review, and find the Anticoagulation Therapy Visit) Qing Guy RN documented in this encounter Plan of Treatment Upcoming Encounters Date Type Specialty Care Team Description 11/15/2022 Virtual Visit Pharm Haylie Gonzalez K sunday Rojas, [facility] [address] [facility] [place] [address] (Lena max) 11/15/2022 Virtual Visit IM/PedYane Muir MD [address] [facility] [place] [address] (Lena max) 03/03/2023 Virtual Visit Neurology Erlinda Barber MD [address] [facility] [address] [place] [address] (Wo rk) documented as of this encounter Procedures Procedure Name Priority Date/Time Associated Diagnosis Comme nts INR POINT OF CARE Routine 05/08/2017 Pulmonary embolism and Results for this infarction (H) procedure are in the results section . documented in this encounter Results (ABNORMAL) INR point of care (05/08/2017) athologist Signature INR Point of 2.1 (A) 0.86 - [facility] 1.14 [facility] Specimen (Source) Anatomical Location Collection Method / Collectio n Time Received Time / Laterality Volume 05/08/2017 Lucero Stevenson MD LAB - BLOOD ORDERABLES Performing Organization Address City/State/ZIP Code Phon e Number [facility] [address] [place] [address] documented in this encounter Visit Diagnoses Diagnosis Pulmonary embolism and infarction (H) documented in this encounter Care Teams Film Tests Checker Relationship Specialty Start Date End Date Lucero Stevenson MD PCP - General Pediatrics 10/11/11 04/22/19 Chastity Montero MD MD Dermatology 09/23/14 [address] [facility] [address] [place] [address] Johnnie Alcocer MD Surgeon General Surgery 03/23/[address] [place], [place] [phone] documented as of this encounter
--- OUTSIDE RECORDS SUMMARY | 2022-06-15 13:15 | XMS_ITS | Encounter Summary ---
:1945 Author Organization [place] Address [address] [place] [address] Care Team Providers Name Role Phone Lucero Stevenson MD Primary Care Provider [phone] Chastity Montero MD Unavailable [phone] Johnnie Alcocer MD Unavailable Encounter Details Date Type Department Care Team Description 09/11/2017 Anticoagulation Therapy [facility] Pulmonary embolism Visit Clinic [place] and infarction (H) [address] [facility] [address] [place] [address] Social [...] encounter Progress Notes Qing Guy, CHANDLER - 09/11/2017 2:02 PM CST ANTICOAGULATION FOLLOW-UP CLINIC VISIT Patient Name: Charlette Brush Date: 09/11/2017 Contact Type: Face to Face SUBJECTIVE: Patient Findings Positives No Problem Findings OBJECTIVE INR Protime Date Value Ref Range Status 09/11/2017 2.7 (A) 0.86 - 1.14 Final ASSESSMENT / PLAN INR assessment THER Recheck INR In: 4 WEEKS INR Location Clinic Anticoagulation Summary as of 09/11/2017 INR goal 2.0-3.0 Today's INR 2.7 Maintenance plan 10 mg (10 mg x 1) on Mon, Wed, Fri; 7.5 mg (7.5 mg x 1) all other days Full instructions 10 mg on Mon, Wed, Fri; 7.5 mg all other days Weekly total 60 mg No change documented Qing Guy, RN Plan last modified Susie Murphy (09/26/2016) Next INR check 10/09/2017 Target end date Indefinite Indications 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] Anticoagulation Episode Summary INR check location Coumadin Clinic Preferred lab Send INR reminders to [facility] Comments 7.5mg & 10mg tabs - devaughn dose // APPT CARD ONLY Anticoagulation Care Providers Provider Role Specialty Phone number Lucero Stevenson MD Pediatrics [phone] See the Encounter Report to view Anticoagulation Flowsheet and Dosing Calendar (Go to Encounters tabin chart review, and find the Anticoagulation Therapy Visit) Qing Guy RN FILLER documented in this encounter Plan of Treatment Upcoming Encounters Date Type Specialty Care Team Description 11/15/2022 Virtual Visit Pharm D Haylie Cheung, [facility] [address] [facility] [place] [address] (Lena max) 11/15/2022 Virtual Visit IM/Peds Yane Barraza MD [address] [facility] [place] [address] (Lena max) 03/03/2023 Virtual Visit Neurology Erlinda Barber MD [address] [facility] [address] [place], [place] [address] (Wo rk) documented as of this encounter Procedures Procedure Name Priority Date/Time Associated Diagnosis Comme nts INR POINT OF CARE Routine 09/11/2017 Pulmonary embolism and Results for this infarction (H) procedure are in the results section . documented in this encounter Results (ABNORMAL) INR point of care (09/11/2017) athologist Signature INR Point of 2.7 (A) 0.86 - [facility] 1.14 [facility] Specimen (Source) Anatomical Location Collection Method / Collectio n Time Received Time / Laterality Volume 09/11/2017 Lucero Stevenson MD LAB - BLOOD ORDERABLES Performing Organization Address City/State/ZIP Code Phon e Number [facility] [address] [place] [address] documented in this encounter Visit Diagnoses Diagnosis Pulmonary embolism and infarction (H) documented in this encounter Care Teams Law Researcher Relationship Specialty Start Date End Date Lucero Stevenson MD PCP - General Pediatrics 10/11/11 04/22/19 Chastity Montero MD MD Dermatology 09/23/14 [address] [facility] [address] [place], [place] [address] Johnnie Alcocer MD Surgeon General Surgery 03/23/[address] [place], [place] [address] documented as of this encounter
--- OUTSIDE RECORDS SUMMARY | 2022-06-15 13:15 | XMS_ITS | Encounter Summary ---
:1945 Author Organization [place] Address [address] [place] [address] Care Team Providers Name Role Phone Lucero Stevenson MD Primary Care Provider [phone] Chastity Montero MD Unavailable [phone] Johnnie Alcocer MD Unavailable Reason for Visit Rehab Therapy Integrated Services (Routine) - Closed Specialty Diagnoses / Procedures Referred By Contact Refer red To Contact Diagnoses MEDICARE//Lymphedema of both lower extremities M [facility] Procedures LYMPHEDEMA EVALUATION REHABILITATION [place] [address] [facility] [address] [place] [address] Phone: Fax: Referral ID Status Reason Start Date Expiration Date Visits V isits Requested Authorized EH-PT/OT/NAVY DIVER Closed 03/23/2017 07/16/2017 365 365 [id number]) Encounter Details Date Type Department Care Team Description 04/27/2017 Hospital Encounter [facility] Kelly Chele Ly mphedema of both lower extremities (Primary Dx); Rehabilitation A Difficulty dressing self Services [facility] [address] [facility] [address] [place] [address] [facility] [phone] [place] [address] Social History Tobacco Use Types [...] 05/03/2021 organizations such as anabaptist groups, unions, fraCelly or athletic groups, or school groups? How [...] machine is a Respi ronics by [employer], [facility] Star Auto A-Flex System 1. ORDER FOR [...] 1 11/1405/20/2017 MG tabletIndications: directed by INR 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 designer current use of clinic anticoagulant therapy warfarin (COUMADIN) 7.5 Take 7.5mg TTSS or 50 tablet 1 11/1405/22/2017 MG tabletIndications: as directed by INR [facility] current use of Clinic. anticoagulant therapy documented as of this encounter Progress Notes Shiva Dennis MD - 04/27/2017 11:59 PM CDT Images from the original note were not included. [facility] OUTPATIENT OCCUPATIONAL THERAPY PLAN OF TREATMENT FOR OUTPATIENT REHABILITATION Patient's Last Name, First Name, M.I. Date of : 1945 Charlette Brush Provider's Name [facility] Onset Date: 03/22/17 Start of Care Date: 03/24/17 Type: ___PT _X_OT ___SLP Medical Diagnosis: edema; lymphedema; wound OT Diagnosis: lymphedema _ Plan of Treatment: Frequency/Duration: 1x/wk x 2 weeks Goals: Goal Identifier 1 Goal Description In order to improve functional mobility, LB dressing I, and functional transfers, by the completion of intensive treatment, patient and/or caregiver will: Target Date 06/02/17 Date Met Progress: Goal Identifier 1a Goal Description tolerate gradient compression bandaging/wearing compression garments 23 hrs/day to prevent re-acccumulation of extracellular fluid Target Date 06/02/17 Date Met 03/29/17 Progress: Goal Identifier 1b Goal Description demonstrate independence in applying gradient compression bandages to build I with home management of BLE lymphedema for imporved walking, LB dressing, and functional transfers Target Date 06/02/17 Date Met 04/06/17 Progress: Goal Identifier 1c Goal Description demonstrate independence in performing prescribed exercises to facilate the lymph system an dmuscle pumping systems for max reductions needed to increase I with LB dressing and promoteincreased I with transfers Target Date 06/02/17 Date Met 04/14/17 Progress: Goal Identifier 1d Goal Description be independent in donning/doffing, wearing schedule, and care of compression garments for I building with home management of BLE lymphedmea needed to aid improvements in mobility, functional transfers, and LB dressing Target Date 06/02/17 Date Met Progress: Goal Identifier 2 Goal Description Display total BLE volume reduction 1L+ for reductions needed to aid skin healing, increased I with transfers, and I with LB dressing Target Date 06/02/17 Date Met 04/05/17 Progress: Goal Identifier Goal Description Target Date Date Met Progress: Goal Identifier Goal Description Target Date Date Met Progress: Progress Toward Goals: Progress this reporting period: Pt last seen 04/27/17 for end of intensive phase. Pt had made progress building I with home management and GCB use, HEP, and self MLD. Pt made substantial reductions in LE swelling-see flowsheet. Pts wounds in lower legs had closed, reduced in weeping, and approaching time when appropriate to start using traditonal stocking. Pt was to see fitter for multiple daily and nighttime garment options, and then start to use when obtained. Pt has had delay in return to clinic,some of which was burden of therapist not being available 2/2 unexpected STD leave, making time to return to clinic in Jun 2017 unavailable. Re-cert needed to cover follow up visit and ensure home management in place and wounds continuing to heal. Certification date from 06/03/17 to 08/17/17. Chele Mendoza I CERTIFY THE NEED FOR THESE SERVICES FURNISHED UNDER THIS PLAN OF TREATMENT AND WHILE UNDER MY CARE (Physician co-signature of this document indicates review and certification of the therapy plan). Referring Provider: Johnnie Alcocer SCIENCES DIRECTOR Chele Mendoza - 04/27/2017 12:24 PM CDT Outpatient Occupational Therapy Progress Note Patient: Charlette Brush : 1945 Insurance: Payor/Plan Subscriber Name Rel Member # Group # Beginning/End Dates of Reporting Period: 04/13/17 (last progress note) to 04/27/2017 Referring Provider: Dr Randall Therapy Diagnosis: lymphedema Client Self Report: Pt rpeports legs feel much better and mobility and transfers easier with less edemetous limbs Objective Measurements: Outcome Measures (most recent score):post LLIS to be obtained next appt/at follow up Goals: Goal Identifier 1 Goal Description In order to improve functional mobility, LB dressing I, and functional transfers, by the completion of intensive treatment, patient and/or caregiver will: Target Date 06/02/17 Date Met Progress: Goal Identifier 1a Goal Description tolerate gradient compression bandaging/wearing compression garments 23 hrs/day to prevent re-acccumulation of extracellular fluid Target Date 06/02/17 Date Met 03/29/17 Progress: Goal Identifier 1b Goal Description demonstrate independence in applying gradient compression bandages to build I with home management of BLE lymphedema for imporved walking, LB dressing, and functional transfers Target Date 06/02/17 Date Met 04/06/17 Progress: Goal Identifier 1c Goal Description demonstrate independence in performing prescribed exercises to facilate the lymph system an dmuscle pumping systems for max reductions needed to increase I with LB dressing and promoteincreased I with transfers Target Date 06/02/17 Date Met 04/14/17 Progress: Goal Identifier 1d Goal Description be independent in donning/doffing, wearing schedule, and care of compression garments for I building with home management of BLE lymphedmea needed to aid improvements in mobility, functional transfers, and LB dressing Target Date 06/02/17 Date Met Progress: Goal Identifier 2 Goal Description Display total BLE volume reduction 1L+ for reductions needed to aid skin healing, increased I with transfers, and I with LB dressing Target Date 06/02/17 Date Met 04/05/17 Progress: Goal Identifier Goal Description Target Date Date Met Progress: Goal Identifier Goal Description Target Date Date Met Progress: Progress Toward Goals: Progress this reporting period: Pt has made further reductions and progress with continued GCB use daily and nightly and MLD reveicved in clinic and performed at home. Meaurements display further decreases, tissue is much softer and skin continues to heal well in LLE anterior bethea, and pt reports lesslimitations with mobility and transfer tasks, actually relying a bit less on SEC when ambulating as well seen x 2 in clinic. Pt continues to perform home management and next 4 weeks will obtain garments for daily use, explore home pump use, and return for follow up to gauge utility of garments chosen to use daily and overall home management. Plan: Continue therapy per current plan of care. Discharge: Reason for Discharge: cont POC Equipment Issued: Discharge Plan: Patient to continue home program. documented in this encounter Miscellaneous Notes Addendum Note - Chele Mendoza - 04/27/2017 11:59 PM CDTEncounter addended by: Chele Mendoza OT on: 07/19/2017 8:19 AM
Actions taken: Sign clinical note SCIENCES DIRECTOR Addendum Note - Chele Mendoza - 04/27/2017 11:59 PM CDTEncounter addended by: Chele Mendoza OT on: 07/19/2017 8:24 AM
Actions taken: Document created SCIENCES DIRECTOR documented in this encounter Plan of Treatment Upcoming Encounters Date Type Specialty Care Team Description 11/15/2022 Virtual Visit Pharm Haylie Gonzalez, [facility] [address] [place] [address] (Wo rk) 11/15/2022 Virtual Visit IM/PedYane Muir MD [address] [facility] [address] (Wo rk) 03/03/2023 Virtual Visit Neurology Erlinda Barber MD [address] [facility] 295 [place] [address] (Wo rk) documented as of this encounter Visit Diagnoses Diagnosis Lymphedema of both lower extremities - P rimary Difficulty dressing self documented in this encounter Care Teams Regulator Pin Inserter Relationship Specialty Start Date End Date Lucero Stevenson MD PCP - General Pediatrics 10/11/11 04/22/19 Chastity Montero MD MD Dermatology 09/23/14 [address] [facility] 98 [place], [place] [address] Johnnie Alcocer MD Surgeon General Surgery 03/23/17 [address] [facility] [address] [place] [address] documented as of this encounter
--- OUTSIDE RECORDS SUMMARY | 2022-06-15 13:15 | XMS_ITS | Encounter Summary ---
:1945 Author Organization [facility] Address [address] [place] [address] Care Team Providers Name Role Phone Lucero Stevenson MD Primary Care Provider [phone] Chastity Montero MD Unavailable [phone] Johnnie Alcocer MD Unavailable Reason for Visit Reason Comments Medication Refill warfarin (COUMADIN) 10 MG ta blet Encounter Details Date Type Department Care Team Description 08/18/2017 Refill [facility] Lucero Stevenson [facility] [place] Little[place] MD (warfarin (COUMADIN) 10 [address] [facility] Y MG tablet) [address] [place] [address] [place] [address] [phone] Social History Tobacco Use Types Packs/Day Years [...] this encounter Miscellaneous Notes Telephone Encounter - Prudence Austin RN - 08/23/2017 2:26 PM CST Warfarin refill request from pharmacy. Last office visit: 03/14/17 Last pertinent lab: ??INR 2.8 on 08/15/17 Refilled per nurse protocol standing orders. Prasanth Austin RN STOCK TRANSFER CLERK Telephone Encounter - Edward Jack - 08/20/2017 2:08 PM CST Requested Prescriptions Pending Prescriptions Disp Refills ??? warfarin (COUMADIN) 10 MG tablet [Pharmacy Med Name: WARFARIN SOD 10MG (TEN MG) TB WHITE] Last Written Prescription Date: 05/22/2017 Last Fill Quantity: 40 tablet, # refills: 0 Last Office Visit with [facility] provider: 03/14/2017 Future Office Visit: 40 tablet 0 Sig: TAKE 1 TABLET BY MOUTH ON MONDAY, MONDAY AND MONDAY. Vitamin K Antagonists Failed 08/18/2017 5:09 PM Failed - INR is within goal in the past 6 weeks Confirm INR is within goal in the past 6 weeks. Recent Labs Lab Test 08/15/17 INR 2.8* Passed - Recent or future visit with authorizing provider's specialty Patient had office visit in the last year or has a visit in the next 30 days with authorizing provider. See Patient Info tab in inbasket, or Choose Columns in Meds & Orders section of the refill encounter. Passed - Patient is 18 years of age or older Passed - Patient is not Passed - No positive on file in past 12 months STOCK TRANSFER CLERK documented in this encounter Plan of Treatment Upcoming Encounters Date Type Specialty Care Team Description 11/15/2022 Virtual Visit Pharm Haylie Gonzalez, [facility] [address] [place] [phone] (Wo rk) 11/15/2022 Virtual Visit IM/Peds Yane Barraza MD [address] [facility] [place] [phone] (Wo rk) 03/03/2023 Virtual Visit Neurology Erlinda Barber MD [address] [facility] [address] [place], [place] [id number] (Wo rk) documented as of this encounter Visit Diagnoses Diagnosis watermelon inspector current use of anticoagulant t herapy documented in this encounter Care Teams Classroom Aide Relationship Specialty Start Date End Date Lucero Stevenson MD PCP - General Pediatrics 10/11/11 04/22/19 Chastity Montero MD MD Dermatology 09/23/14 [address] [facility] 98 [place], [place] [address] Johnnie Alcocer MD Surgeon General Surgery 03/23/[address] [place] [address] documented as of this encounter
--- OUTSIDE RECORDS SUMMARY | 2022-06-15 13:15 | XMS_ITS | Encounter Summary ---
:1945 Author Organization [place] Address [address] [place] [address] Care Team Providers Name Role Phone Lucero Stevenson MD Primary Care Provider [phone] Chastity Montero MD Unavailable [phone] Johnnie Alcocer MD Unavailable Reason for Visit Rehab Therapy Integrated Services (Routine) - Closed Specialty Diagnoses / Procedures Referred By Contact Refer red To Contact Diagnoses MEDICARE//Lymphedema of both lower extremities M [facility] Procedures LYMPHEDEMA EVALUATION REHABILITATION [place] [address] [facility] [address] [place] [address] Phone: Fax: Referral ID Status Reason Start Date Expiration Date Visits V isits Requested Authorized EH-PT/OT/RN IMAGING Closed 03/23/2017 07/16/2017 365 365 ([id number]) Encounter Details Date Type Department Care Team Description 04/26/2017 Hospital Encounter [facility] Kelly Chele Ly mphedema of both lower extremities (Primary Dx); Rehabilitation A Difficulty dressing self Services [place] [facility] [address] [facility] [address] [place] [address] [facility] [phone] [place] [address] Social History Tobacco Use Types [...] 05/03/2021 organizations such as shinto groups, unions, fraCodeNgo or athletic groups, or school groups? How [...] machine is a Respi ronics by [employer], [employer] Star Auto A-Flex System 1. ORDER FOR [...] 1 11/1405/20/2017 MG tabletIndications: directed by INR intermission coordinator current use of clinic anticoagulant therapy warfarin (COUMADIN) 7.5 Take 7.5mg TTSS or 50 tablet 1 11/1405/22/2017 MG tabletIndications: as directed by INR prison current use of Clinic. anticoagulant therapy documented as of this encounter Plan of Treatment Upcoming Encounters Date Type Specialty Care Team Description 11/15/2022 Virtual Visit Pharm D Haylie Cheung, [facility] [address] [facility] [place] [address] (Wo winter) 11/15/2022 Virtual Visit IM/Peds Yane Barraza MD [address] [facility] [place] [address] (Lena max) 03/03/2023 Virtual Visit Neurology Erlinda Barber MD [address] [facility] [address] [place], [place] [address] (Wo winter) documented as of this encounter Visit Diagnoses Diagnosis Lymphedema of both lower extremities - P rimary Difficulty dressing self documented in this encounter Care Teams Supervisor Blasting Relationship Specialty Start Date End Date Lucero Stevenson MD PCP - General Pediatrics 10/11/11 04/22/19 Chastity Montero MD MD Dermatology 09/23/14 [address] [facility] [address] [place] [address] Johnnie Alcocer MD Surgeon General Surgery 03/23/17 [address] [facility] 300 [place] [address] documented as of this encounter
--- OUTSIDE RECORDS SUMMARY | 2022-06-15 13:15 | XMS_ITS | Encounter Summary ---
:1945 Author Organization [facility] Address [address] [place] [address] Care Team Providers Name Role Phone Lucero Stevenson MD Primary Care Provider [phone] Chastity Montero MD Unavailable [phone] Johnnie Alcocer MD Unavailable Reason for Visit Reason Comments Medication Refill warfarin (COUMADIN) 10 MG an d 7.5 MG tablets Encounter Details Date Type Department Care Team Description 05/20/2017 Refill [facility] [place] Littlejohn MD (warfarin (COUMADIN) 10 [facility] and 7.5 MG tablets) [address] [place] [address] [place] [address] [phone] Social History Tobacco Use Types Packs/Day Years [...] Telephone Encounter - Qing Guy RN - 05/22/2017 5:39 PM CST warfarin (COUMADIN) 10 MG tablet Last Written Prescription Date: 11/24/16 Last Fill Qty: 40, # refills: 1 warfarin (COUMADIN) 7.5 MG tablet Last Written Prescription Date: 11/24/16 Last Fill Qty: 50, # refills: 1 Last Office Visit with [facility] or [facility] prescribing provider: 03/14/17 Date and Result of Last PT/INR: Lab Results Component Value Date INR 2.1 05/08/2017 INR 2.7 04/10/2017 INR 2.90 10/18/2013 INR 2.38 04/14/2012 Refilled per nurse protocol standing orders. Qing Guy RN HATCHERY LABORER Telephone Encounter - Patience Woods - 05/22/2017 8:53 AM CST [place] 03/14/2017 HATCHERY LABORER documented in this encounter Plan of Treatment Upcoming Encounters Date Type Specialty Care Team Description 11/15/2022 Virtual Visit Pharm Haylie Gonzalez, [facility] [address] [place] [address] (Wo rk) 11/15/2022 Virtual Visit [place] [address] [place] [address] [place] [address] (Wo rk) 03/03/2023 Virtual Visit Neurology Erlinda Barber MD [address] [facility] 295 [place] [address] (Wo rk) documented as of this encounter Visit Diagnoses Diagnosis USP current use of anticoagulant t herapy documented in this encounter Care Teams Seed Analysis Laboratory Assistant Relationship Specialty Start Date End Date Lucero Stevenson MD PCP - General Pediatrics 10/11/11 04/22/19 Chastity Montero MD MD Dermatology 09/23/[address] [place] [address] 98 [place], [place] [address] Johnnie Alcocer MD Surgeon General Surgery 03/23/17 [address] [facility] [address] [place] [address] documented as of this encounter
--- OUTSIDE RECORDS SUMMARY | 2022-06-15 13:15 | XMS_ITS | Encounter Summary ---
:1945 Author Organization [facility] Address [address] [place] [address] Care Team Providers Name Role Phone Lucero Stevenson MD Primary Care Provider [phone] Chastity Montero MD Unavailable [phone] Johnnie Alcocer MD Unavailable Reason for Visit Rehab Therapy Integrated Services (Routine) - Closed Specialty Diagnoses / Procedures Referred By Contact Refer red To Contact Diagnoses MEDICARE//Lymphedema of both lower extremities [facility] Procedures LYMPHEDEMA TREATMENT REHABILITATION [place] [address] [facility] [address] [place] [address] Phone: Fax: Referral ID Status Reason Start Date Expiration Date Visits V isits Requested Authorized EH- PT/OT/SUBSTATION SUPERVISOR Closed 07/17/2017 07/16/[phone] ([id number]) Encounter Details Date Type Department Care Team Description 07/19/2017 Hospital Encounter [facility] [place] Chele Ly mphedema of both lower extremities (Primary Dx); Rehabilitation A Difficulty dressing self Services [place] [facility] [address] [place] [address] [facility] [phone] [place] [address] Social History Tobacco Use Types Packs/Day [...] 05/03/2021 organizations such as moravian groups, unions, fraDaixe or athletic groups, or school groups? How [...] machine is a Respi ronics by [employer], [employer] Star Auto A-Flex System 1. ORDER FOR daily Auto-CPAP: Max 11 cm H2O, Min 11cm H2O 1 Device 0 08/26/2013 10/18/2017 DMEIndications: Obstructive sleep apnea Continuous, Lifetime need and heated humidity . (adult) (pediatric) triamterene-hydrochlorot Take 1 capsule by 90 capsule 3 12/1610/25/2017 hiazide (DYAZIDE) mouth every morning 37.5-25 MG per capsuleIndications: Essential hypertension, benign warfarin (COUMADIN) 10 Take 10 mg (1 40 tablet 0 05/22/2017 08/18/2017 MG tabletIndications: tablet) on MWF (take ad terminal makeup operator current use of 7.5mg tabs on TTSS) anticoagulant therapy or as directed by INR Clinic warfarin (COUMADIN) 7.5 Take 7.5mg (1 50 tablet 1 7 05/07/2018 MG tabletIndications: tablet) on TTSS correction current use of (take 10mg tabs on anticoagulant therapy MWF) or as directed by INR Clinic. documented as of this encounter Progress Notes Chele Mendoza - 07/19/2017 11:59 PM CST Outpatient Occupational Therapy Discharge Note Patient: Charlette Brush : 1945 Beginning/End Dates of Reporting Period: 03/24/17 to 07/19/2017 Referring Provider: Johnnie Caballero Diagnosis: edema; lymphedema; wounds Client Self Report: Objective Measurements: see flowsheet Outcome Measures (most recent score): Lymphedema Life Impact Scale (score range 0-72). A higher score indicates greater impairment.: 8-post score from 4 pre score indicates low satisfaction with services/outcomes. Pt stataes at time LLIS post she does not remember how she filled out initial LLIS. Pts remarks that she is happy with skin healing and reduced lymphedema contradicts data of LLIS scores. Goals: Goal Identifier 1 Goal Description In [...] LB dressing Target Date 06/02/17 Date Met 07/19/17 Progress: Goal Identifier 2 Goal Description Display total BLE volume reduction 1L+ for reductions needed to aid skin healing, increased I with transfers, and I with LB dressing Target Date 06/02/17 Date Met 04/05/17 Progress: Goal Identifier Goal Description Target Date Date Met Progress: Goal Identifier Goal Description Target Date Date Met Progress: Progress Toward Goals: Progress this reporting period: Pt has returned for follow up. 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 Pt has done well with daily velcro compression use and mainly has preserved reductions made during intsnive phase. Pt educated on ways to get reductions back and re-reduce herself for optimal daily lymphedema levels and functional use LE's. Pts skin has healed up and she states its only open 2/2 her scratching; pt educated at length about skin integrity and need to avoid re- opening skin. Pt has had poor follow through with flexitouch via Tactile Med rep and issuewith insurance coverage, but encourage to revisit topic and see if she can get pump for daily lymphedema management. Plan: Discharge from therapy. Discharge: Reason for Discharge: Patient has met all goals. No further expectation of progress. Equipment Issued: Discharge Plan: Patient to continue home program. N MAKER LOOM CONTROL documented in this encounter Miscellaneous Notes Addendum Note - Chele Mendoza - 07/19/2017 11:59 PM CSTEncounter addended by: Chele Mendoza, OT on: 07/20/2017 7:27 AM
Actions taken: Flowsheet accepted, Sign clinical note N MAKER LOOM CONTROL Addendum Note - Chele Mendoza - 07/19/2017 11:59 PM CSTEncounter addended by: Chele Mendoza OT on: 07/20/2017 7:28 AM
Actions taken: Episode resolved N MAKER LOOM CONTROL documented in this encounter Plan of Treatment Upcoming Encounters Date Type Specialty Care Team Description 11/15/2022 Virtual Visit Pharm Haylie Gonzalez, [facility] [address] [facility] [address] [place] [phone] (Wo rk) 11/15/2022 Virtual Visit [place] [address] [place] [address] [place] [phone] (Wo rk) 03/03/2023 Virtual Visit Neurology Erlinda Barber MD [address] [facility] [address] [place], [place] [address] (Wo rk) documented as of this encounter Visit Diagnoses Diagnosis Lymphedema of both lower extremities - P rimary Difficulty dressing self documented in this encounter Care Teams Senior Air Director Relationship Specialty Start Date End Date Lucero Stevenson MD PCP - General Pediatrics 10/11/11 04/22/19 Chastity Montero MD MD Dermatology 09/23/14 [address] [facility] [address] [place], [place] [address] Johnnie Alcocer MD Surgeon General Surgery 03/23/17 [address] [facility] [address] [place] [address] documented as of this encounter
--- OUTSIDE RECORDS SUMMARY | 2022-06-15 13:15 | XMS_ITS | Encounter Summary ---
:1945 Author Organization [facility] Address [address] [place] [address] Care Team Providers Name Role Phone Lucero Stevenson MD Primary Care Provider Chastity Montero MD Unavailable [phone] Johnnie Alcocer MD Unavailable Reason for Visit Rehab Therapy Integrated Services (Routine) - Closed Specialty Diagnoses / Procedures Referred By Contact Refer red To Contact Diagnoses MEDICARE//Lymphedema of both lower extremities [facility] Procedures LYMPHEDEMA EVALUATION REHABILITATION [place] [address] [facility] [address] [place] [address] Phone: Fax: Referral ID Status Reason Start Date Expiration Date Visits V isits Requested Authorized EH-PT/OT/CLINIC MD ASSOCIATE Closed 03/23/2017 07/16/[phone] ([id number]) Encounter Details Date Type Department Care Team Description 04/21/2017 Hospital Encounter M [facility] Chele Ly mphedema of both lower extremities (Primary Dx); Rehabilitation A Difficulty dressing self Services [place] [facility] [address] [place] [address] [facility] [phone] [place] [address] Social History Tobacco Use Types [...] 05/03/2021 organizations such as pentecostal groups, unions, fraNavPrescience or athletic groups, or school groups? How [...] Apply 1 g topically 180 g 3 10/28/2015 1 (TOPICORT) 0.05 % two times daily GELIndications: [...] machine is a Respi ronics by [employer], [employer] Star Auto A-Flex System 1. ORDER FOR [...] 1 11/1405/20/2017 MG tabletIndications: directed by INR equipment operator intermodal yard current use of clinic anticoagulant therapy warfarin (COUMADIN) 7.5 Take 7.5mg TTSS or 50 tablet 1 11/1405/22/2017 MG tabletIndications: as directed by INR equipment operator intermodal yard current use of Clinic. anticoagulant therapy documented as of this encounter Progress Notes Chele Mendoza - 04/21/2017 9:58 AM CDT 04/21/17 0900 Signing Clinician's Name / Credentials Signing clinician's name / credentials Omkar Mendoza OTR/L; CLT Session Number Session Number 02/05, (medicare primary; BCBS secondary) Adult OT Eval Goals Edema Eval Goals 1;2;3;4;5;6 Goal 1 Goal identifier 1 Goal description In order to improve functional mobility, LB dressing I, and functional transfers, by the completion of intensive treatment, patient and/or caregiver will: Target date 06/02/17 Goal 2 Goal identifier 1a Goal description tolerate gradient compression bandaging/wearing compression garments 23 hrs/day to prevent re-acccumulation of extracellular fluid Target date 06/02/17 Date met 03/29/17 Goal 3 Goal identifier 1b Goal description demonstrate independence in applying gradient compression bandages to build I with home management of BLE lymphedema for imporved walking, LB dressing, and functional transfers Target date 06/02/17 Date met 04/06/17 Goal 4 Goal identifier 1c Goal description demonstrate independence in performing prescribed exercises to facilate the lymph system an dmuscle pumping systems for max reductions needed to increase I with LB dressing and promoteincreased I with transfers Target date 06/02/17 Date met 04/14/17 Goal 5 Goal identifier 1d Goal description be independent in donning/doffing, wearing schedule, and care of compression garments for I building with home management of BLE lymphedmea needed to aid improvements in mobility, functional transfers, and LB dressing Target date 06/02/17 Goal 6 Goal identifier 2 Goal description Display total BLE volume reduction 1L+ for reductions needed to aid skin healing, increased I with transfers, and I with LB dressing Target date 06/02/17 Date met 04/05/17 Manual Therapy Minutes 70 Minutes Skilled Intervention education; MLD; GCB's Patient Response Pt reports pain in toes of R foot. Treatment Detail Pt reports pain last night in toes of R foot. Area was slightly open and had scab noted yesterday and toe wraps donned in manner to avoid exercerbation of region. Region with small trickle blood and toes 2 and 3 notes to have open skin in deeper bend of IP joints in each toe. region cleaned with antimicrobial soap and plan to defer to wrap to allow skin to heal. LLE healing skin had odd white bump noted and pt reported slight itchiness along with a very small pink tone to region surrounding skin. Pt aksed to return to using cortizone/medicated cream she was prescribed and to monitor region. MLD to lower abdomen, inguinal LN's, and BLE sequences with focus to fibrosis work and nahum nuing to soften tissue of lower elgs for best fluid mobilization. Pt performed diaphragm breathing to aid abdominal cleranace 2/2 time constraints with MLD today. GCB's donned after MLD as past sessionminus R foot toe wraps. Pt and therapist discussing feedback from [facility]. [facility] states ptdoes not qualify for flexitouch unless she trials and fails use of standard pump. Therpaist discussed this with rep as strong suspicions that standar pump will create problem for pt as it does not mimick lymphatic drainage and mobilizes fluid differently than flexitouch; for individuals with congenital lymphedema, results are maximized and problems avoided when attention to MLD used versus standard pump. This information shared with pt so she understands that if she chooses to pursue she will need to closely monitor reaction to standard pump use. Abdominal girth measuremeht taken to aid tracking effects of device if put into place in future (abdominal circumferential measurement directly througfh u mbilicus was 138cm). POC for weekend discussed. Pt again provides verbal consent for theraist to send eval and treatment notes to tactile rep for review. Pt has fitter appt but same day as operator specialist communications dermalogical appt and approaches to getting most represenattive fit for garment fitting discussed as pt refills when compression doffed and she will need that for derm appt; hopeful pt can rewrap in between appts to preserve reductions and get most credit and collections representative fitting for garment. Education Learner Patient Readiness Acceptance Method Explanation Response Verbalizes understanding Plan Plan for next session cont MLD/fibrosis; re-wrap Total Session Time Timed Code Treatment Minutes 70 Total Treatment Time (sum of timed and untimed services) 70 documented in this encounter Plan of Treatment Upcoming Encounters Date Type Specialty Care Team Description 11/15/2022 Virtual Visit Pharm Haylie Gonzalez, [facility] [address] [facility] [address] [place] [phone] ([place]) 11/15/2022 Virtual Visit IM/Peds Yane Barraza MD [address] [facility] [place] [phone] ([place]) 03/03/2023 Virtual Visit Neurology Erlinda Barber MD [address] [facility] [address] [place] [address] ([place] max) documented as of this encounter Visit Diagnoses Diagnosis Lymphedema of both lower extremities - P rimary Difficulty dressing self documented in this encounter Care Teams Corrections Corporal Relationship Specialty Start Date End Date Lucero Stevenson MD PCP - General Pediatrics 10/11/11 04/22/19 Chastity Montero MD MD Dermatology 09/23/14 [address] [facility] [address] [place] [address] Johnnie Alcocer MD Surgeon General Surgery 03/23/17 [address] [facility] [address] [place] [address] documented as of this encounter
--- OUTSIDE RECORDS SUMMARY | 2022-06-15 13:15 | XMS_ITS | Encounter Summary ---
:1945 Author Organization [facility] Address [address] [place] [address] Care Team Providers Name Role Phone Lucero Stevenson MD Primary Care Provider Chastity Montero MD Unavailable [phone] Johnnie Alcocer MD Unavailable Encounter Details Date Type Department Care Team Description 07/18/2017 Anticoagulation Therapy [facility] Pulmonary embolism Visit Clinic [place] and infarction (H) [address] [facility] [address] [place] [address] Social [...] encounter Progress Notes Qing Guy, CHANDLER - 07/18/2017 2:06 PM CST ANTICOAGULATION FOLLOW-UP CLINIC VISIT Patient Name: Charlette Brush Date: 07/18/2017 Contact Type: Face to Face SUBJECTIVE: Patient Findings Positives No Problem Findings Comments Was ill over [place] with fever, cough, runny nose. Better now. Just occasional cough. 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] Anticoagulation Episode Summary INR check location Coumadin Clinic Preferred lab Send INR reminders to [facility] Comments 7.5mg & 10mg tabs - devaughn dose // APPT CARD ONLY Anticoagulation Care Providers Provider Role Specialty Phone number Lucero Stevenson MD Pediatrics [phone] See the Encounter Report to view Anticoagulation Flowsheet and Dosing Calendar (Go to Encounters tabin chart review, and find the Anticoagulation Therapy Visit) Qing Guy RN CCO BALER documented in this encounter Plan of Treatment Upcoming Encounters Date Type Specialty Care Team Description 11/15/2022 Virtual Visit Pharm Haylie Gonzalez, [facility] [address] [facility] [place] [address] ([place]) 11/15/2022 Virtual Visit IM/Peds Yane Barraza MD [address] [facility] [place] [address] (Wo rk) 03/03/2023 Virtual Visit Neurology Erlinda Barber MD [address] [facility] [address] [place] [address] (Wo rk) documented as of this encounter Procedures Procedure Name Priority Date/Time Associated Diagnosis Comme nts INR POINT OF CARE Routine 07/18/2017 Pulmonary embolism and Results for this infarction (H) procedure are in the results section . documented in this encounter Results (ABNORMAL) INR point of care (07/18/2017) P athologist Signature INR Point of 2.5 (A) 0.86 - [facility] 1.14 [facility] Specimen (Source) Anatomical Location Collection Method / Collectio n Time Received Time / Laterality Volume 07/18/2017 Lucero Stevenson MD LAB - BLOOD ORDERABLES Performing Organization Address City/State/ZIP Code Phon e Number [facility] [address] [place] [address] documented in this encounter Visit Diagnoses Diagnosis Pulmonary embolism and infarction (H) documented in this encounter Care Teams Pipeline Superintendent Division Relationship Specialty Start Date End Date Lucero Stevenson MD PCP - General Pediatrics 10/11/11 04/22/19 Chastity Montero MD MD Dermatology 09/23/14 [address] [facility] 98 [place], [place] [address] Johnnie Alcocer MD Surgeon General Surgery 03/23/[address] [place], [place] [address] documented as of this encounter
--- OUTSIDE RECORDS SUMMARY | 2022-06-15 13:15 | XMS_ITS | Encounter Summary ---
:1945 Author Organization [facility] Address [address] [place] [address] Care Team Providers Name Role Phone Lucero Stevenson MD Primary Care Provider [phone] Chastity Montero MD Unavailable Johnnie Alcocer MD Unavailable Encounter Details Date Type Department Care Team Description 07/04/2017 Anticoagulation Therapy [facility] Pulmonary embolism Visit Clinic [place] and infarction (H) [address] [facility] [address] [place] [address] Social History [...] encounter Progress Notes Qing Guy RN - 07/04/2017 6:19 PM CST ANTICOAGULATION FOLLOW-UP CLINIC VISIT Patient Name: Charlette Brush Date: 07/04/2017 Contact Type: Face to Face SUBJECTIVE: Patient Findings Positives No Problem Findings, Unexplained INR or factor level change OBJECTIVE INR Protime Date Value Ref Range Status 07/04/2017 3.4 (A) 0.86 - 1.14 Final ASSESSMENT / PLAN INR assessment SUPRA Recheck INR In: 4 WEEKS INR Location Clinic Anticoagulation Summary as of 07/04/2017 INR goal 2.0-3.0 Today's INR 3.4! 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] Anticoagulation Episode Summary INR check location Coumadin Clinic Preferred lab Send INR reminders to [facility] Comments 7.5mg & 10mg tabs - devaughn dose // APPT CARD ONLY Anticoagulation Care Providers Provider Role Specialty Phone number Lucero Stevenson MD Pediatrics [phone] See the Encounter Report to view Anticoagulation Flowsheet and Dosing Calendar (Go to Encounters tabin chart review, and find the Anticoagulation Therapy Visit) Qing Guy RN ERVATION SCIENCE OFFICER documented in this encounter Plan of Treatment Upcoming Encounters Date Type Specialty Care Team Description 11/15/2022 Virtual Visit Pharm D Haylie Cheung, [facility] [address] [facility] [place] [address] ([place]) 11/15/2022 Virtual Visit IM/Yane Mathias MD [address] [facility] [place] [address] ([place]) 03/03/2023 Virtual Visit Neurology Erlinda Barber MD [address] [facility] [address] [place] [address] (Wo rk) documented as of this encounter Procedures Procedure Name Priority Date/Time Associated Diagnosis Comme nts INR POINT OF CARE Routine 07/04/2017 Pulmonary embolism and Results for this infarction (H) procedure are in the results section . documented in this encounter Results (ABNORMAL) INR point of care (07/04/2017) P athologist Signature INR Point of 3.4 (A) 0.86 - [facility] 1.14 [facility] Specimen (Source) Anatomical Location Collection Method / Collectio n Time Received Time / Laterality Volume 07/04/2017 Lucero Stevenson MD LAB - BLOOD ORDERABLES Performing Organization Address City/State/ZIP Code Phon e Number [facility] [address] [place], [place] [address] documented in this encounter Visit Diagnoses Diagnosis Pulmonary embolism and infarction (H) documented in this encounter Care Teams Industry Segment Specialist Relationship Specialty Start Date End Date Lucero Stevenson MD PCP - General Pediatrics 10/11/11 04/22/19 Chastity Montero MD MD Dermatology 09/23/14 [address] [facility] [address] [place], [place] [address] Johnnie Alcocer MD Surgeon General Surgery 03/23/[address] [place], [place] [address] documented as of this encounter
--- OUTSIDE RECORDS SUMMARY | 2022-06-15 13:15 | XMS_ITS | Encounter Summary ---
:1945 Author Organization [facility] Address [address] [place] [address] Care Team Providers Name Role Phone Lucero Stevenson MD Primary Care Provider [phone] Chastity Montero MD Unavailable [phone] Johnnie Alcocer MD Unavailable Reason for Visit Reason Comments Medication Refill warfarin (COUMADIN) 10 MG ta blet Encounter Details Date Type Department Care Team Description 08/23/[address] [facility] Lucero Stevenson [facility] Refill Clinic [place] Littlejohn MD (warfarin (COUMADIN) 10 [address] [facility] Y MG tablet) [address] [place] [address] [place] [address] [phone] Social History Tobacco Use Types Packs/Day Years [...] Notes Telephone Encounter - Patience [place] - 08/23/2017 4:53 PM CST Duplicate. warfarin (COUMADIN) 10 MG tablet was filled on 08/23/2017, qty 40 with 1 refill. ETICIAN/OWNER documented in this encounter Plan of Treatment Upcoming Encounters Date Type Specialty Care Team Description 11/15/2022 Virtual Visit Pharm D Haylie Cheung, [facility] [address] [place] [address] (Wo rk) 11/15/2022 Virtual Visit IM/Peds Yane Barraza MD [address] [facility] [place] [address] (Wo rk) 03/03/2023 Virtual Visit Neurology Erlinda Barber MD [address] [facility] [address] [place] [address] (Wo rk) documented as of this encounter Visit Diagnoses Diagnosis senior living current use of anticoagulant t herapy documented in this encounter Care Teams Industrial Arts Teacher Relationship Specialty Start Date End Date uLcero Stevenson MD PCP - General Pediatrics 10/11/11 04/22/19 Chastity Montero MD MD Dermatology 09/23/14 [address] [facility] [address] [place] [address] Johnnie Alcocer MD Surgeon General Surgery 03/23/[address] [place], [place] [phone] documented as of this encounter
--- OUTSIDE RECORDS SUMMARY | 2022-06-15 13:15 | XMS_ITS | Encounter Summary ---
:1945 Author Organization [place] Address [facility] [place] [address] Care Team Providers Name Role Phone Lucero Stevenson MD Primary Care Provider [phone] Chastity Montero MD Unavailable [phone] Joya Thayer MD Unavailable Encounter Details Date Type Department Care Team Description 05/03/2017 Hospital Encounter [facility] Wound Joya Jackson MD Clinic [place] [address] [facility] [address] [facility] [address] [place] [address] [place] [address] [phone] Social History Tobacco Use Types Packs/Day Years [...] Sign Reading Time Taken Comments Blood Pressure 144/86 05/03/2017 10:49 AM CDT Pulse 70 05/03/2017 10:49 AM CDT Temperature 36.2 ??C (97.2 ??F) 05/03/2017 10:49 AM CDT Respiratory Rate 18 05/03/2017 10:49 AM CDT Oxygen Saturation - - Inhaled Oxygen Concentration - - Weight - - Height - - Body Mass Index - - documented in this encounter Medications at Time [...] machine is a Respi ronics by [employer], Rem Star Auto A-Flex System 1. ORDER FOR [...] 1 11/1405/20/2017 MG tabletIndications: directed by INR snf current use of clinic anticoagulant therapy warfarin (COUMADIN) 7.5 Take 7.5mg TTSS or 50 tablet 1 11/1405/22/2017 MG tabletIndications: as directed by INR ad terminal makeup operator current use of Clinic. anticoagulant therapy documented as of this encounter Progress Notes Joya Thayer MD - 05/03/2017 11:17 AM CDT [facility] DATE OF SERVICE: 05/03/2017 Ms. Marzena Brush is a 72-year-old woman who we saw 5 weeks ago with an ulcer on the left anterior lower leg. The patient has a long history of chronic lymphedema and has had visits to the Lymphedema Clinic in the past. After we saw her 5 weeks ago, we sent her back to the Lymphedema Clinic and she hasreceived 5 weeks of therapy there including compressive garments and massage therapy. She is making progress toward healing her ulcer. PHYSICAL EXAMINATION: GENERAL: The patient is in no distress. VITAL SIGNS: Temperature 97.2, blood pressure 144/86, pulse of 70 and respirations of 18. EXTREMITIES: Examining the lower legs, they are much improved from prior. The ulcer that remains should heal with ongoing compressive therapy. PLAN: The patient will continue with the hydrocortisone cream which she has been applying and will be continuing with her lymphedema garments. 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 JOYA THAYER MD MT: CD Name: MARZENA BRUSH MRN: [id number] Account: [id number] : 1945 Visit Date: 05/03/2017 Document: [id number] documented in this encounter Plan of Treatment Upcoming Encounters Date Type Specialty Care Team Description 11/15/2022 Virtual Visit Pharm D Haylie Cheung, [facility] [address] [place] [address] (Wo rk) 11/15/2022 Virtual Visit IM/Peds Yane Barraza MD [address] [place] [place] [address] (Wo rk) 03/03/2023 Virtual Visit Neurology Erlinda Barber MD [address] [facility] [address] [place], [place] [id number] (Wo rk) documented as of this encounter Visit Diagnoses Not on filedocumented in this encounter Care Teams Airline Flight Attendant Relationship Specialty Start Date End Date Lucero Stevenson MD PCP - General Pediatrics 10/11/11 04/22/19 Chastity Montero MD MD Dermatology 09/23/14 [address] [facility] 98 [place] [address] Joya Thayer MD Surgeon General Surgery 03/23/[address] [place], [place] [id number] documented as of this encounter
--- OUTSIDE RECORDS SUMMARY | 2022-06-15 13:15 | XMS_ITS | Encounter Summary ---
:1945 Author Organization [place] Address [address] [place] [address] Care Team Providers Name Role Phone Lucero Stevenson MD Primary Care Provider [phone] Chastity Montero MD Unavailable [phone] Johnnie Alcocer MD Unavailable Encounter Details Date Type Department Care Team Description 10/09/[address] [facility] Pulmonary embolism Visit Clinic [place] and infarction (H) [address] [facility] [address] [...] encounter Progress Notes Qing Guy, CHANDLER - 10/09/2017 2:18 PM CDT ANTICOAGULATION FOLLOW-UP CLINIC VISIT Patient Name: Charlette Brush Date: 10/09/2017 Contact Type: Face to Face SUBJECTIVE: Patient Findings Positives Other complaints Comments Wound on left leg is oozing clear yellow drainage. Left leg is larger than right. Is waiting for insurance on flexitouch pump for lymphedema. Appointment scheduled with Dr. Stevenson to discuss on 10/24/17. 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] Anticoagulation Episode Summary INR check location [facility] Preferred lab Send INR reminders to [facility] Comments 7.5mg & 10mg tabs - devaughn dose // APPT CARD ONLY Anticoagulation Care Providers Provider Role Specialty Phone number Lucero Stevenson MD Pediatrics [phone] See the Encounter Report to view Anticoagulation Flowsheet and Dosing Calendar (Go to Encounters tabin chart review, and find the Anticoagulation Therapy Visit) Qing Guy RN documented in this encounter Plan of Treatment Upcoming Encounters Date Type Specialty Care Team Description 11/15/2022 Virtual Visit Pharm Haylie Gonzalez, [facility] [address] [place] [address] (Wo rk) 11/15/2022 Virtual Visit IM/Peds Yane Barraza MD [address] [place] [address] (Wo rk) 03/03/2023 Virtual Visit Neurology Erlinda Barber MD [address] [facility] [address] [place] [address] (Wo rk) documented as of this encounter Procedures Procedure Name Priority Date/Time Associated Diagnosis Comme nts INR POINT OF CARE Routine 10/09/2017 Pulmonary embolism and Results for this infarction (H) procedure are in the results section . documented in this encounter Results (ABNORMAL) INR point of care (10/09/2017) athologist Signature INR Point of 3.0 (A) 0.86 - [facility] 1.14 [facility] Specimen (Source) Anatomical Location Collection Method / Collectio n Time Received Time / Laterality Volume 10/09/2017 Lucero Stevenson MD LAB - BLOOD ORDERABLES Performing Organization Address City/State/[facility] Code Phon e Number [facility] [address] [place] [address] documented in this encounter Visit Diagnoses Diagnosis Pulmonary embolism and infarction (H) documented in this encounter Care Teams Metal Machine Setter Relationship Specialty Start Date End Date Lucero Stevenson MD PCP - General Pediatrics 10/11/11 04/22/19 Chastity Montero MD MD Dermatology 09/23/14 [address] [facility] 98 [place], [place] [address] Johnnie Alcocer MD Surgeon General Surgery 03/23/[address] [place] [address] documented as of this encounter
--- OUTSIDE RECORDS SUMMARY | 2022-06-15 13:15 | XMS_ITS | Encounter Summary ---
:1945 Author Organization [place] Address [address] [place] [address] Care Team Providers Name Role Phone Lucero Stevenson MD Primary Care Provider [phone] Chastity Montero MD Unavailable [phone] Johnnie Alcocer MD Unavailable Encounter Details Date Type Department Care Team Description 08/15/2017 Anticoagulation Therapy [facility] Pulmonary embolism Visit Clinic [place] and infarction (H) [address] [facility] [address] [place] [address] [...] as of this encounter Progress Notes Qing Gyu, CHANDLER - 08/15/2017 1:52 PM CST ANTICOAGULATION FOLLOW-UP CLINIC VISIT Patient Name: Charlette Brush Date: 08/15/2017 Contact Type: Face to Face SUBJECTIVE: Patient Findings Positives No Problem Findings OBJECTIVE INR Protime Date Value Ref Range Status 08/15/2017 2.8 (A) 0.86 - 1.14 Final ASSESSMENT / PLAN INR assessment THER Recheck INR In: 4 WEEKS INR Location Clinic Anticoagulation Summary as of 08/15/2017 INR goal 2.0-3.0 Today's INR 2.8 Maintenance plan 10 mg (10 mg x 1) on Mon, Wed, Fri; 7.5 mg (7.5 mg x 1) all other days Full instructions 10 mg on Mon, Wed, Fri; 7.5 mg all other days Weekly total 60 mg No change documented Qing Guy, RN Plan last modified Susie Murphy (09/26/2016) Next INR check 09/12/2017 Target end date Indefinite Indications 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] Anticoagulation Episode Summary INR check location [facility] Preferred lab Send INR reminders to [facility] Comments 7.5mg & 10mg tabs - devaughn dose // APPT CARD ONLY Anticoagulation Care Providers Provider Role Specialty Phone number Lucero Stevenson MD Pediatrics [phone] See the Encounter Report to view Anticoagulation Flowsheet and Dosing Calendar (Go to Encounters tabin chart review, and find the Anticoagulation Therapy Visit) Qing Guy RN ING INSTRUCTOR documented in this encounter Plan of Treatment Upcoming Encounters Date Type Specialty Care Team Description 11/15/2022 Virtual Visit Pharm D Haylie Cheung, [facility] [address] [facility] [place] [address] (Lena max) 11/15/2022 Virtual Visit IM/Peds Yane Barraza MD [address] [facility] [place] [address] (Lena max) 03/03/2023 Virtual Visit Neurology Erlinda Barber MD [address] [facility] 295 [place], [place] [address] (Wo rk) documented as of this encounter Procedures Procedure Name Priority Date/Time Associated Diagnosis Comme nts INR POINT OF CARE Routine 08/15/2017 Pulmonary embolism and Results for this infarction (H) procedure are in the results section . documented in this encounter Results (ABNORMAL) INR point of care (08/15/2017) athologist Signature INR Point of 2.8 (A) 0.86 - [facility] [address] [facility] Specimen (Source) Anatomical Location Collection Method / Collectio n Time Received Time / Laterality Volume 08/15/2017 Lucero Stevenson MD LAB - BLOOD ORDERABLES Performing Organization Address City/State/ZIP Code Phon e Number [facility] [address] [place] [address] documented in this encounter Visit Diagnoses Diagnosis Pulmonary embolism and infarction (H) documented in this encounter Care Teams Forging Die Finisher Relationship Specialty Start Date End Date Lucero Stevenson MD PCP - General Pediatrics 10/11/11 04/22/19 Chastity Montero MD MD Dermatology 09/23/14 [address] [facility] 98 [place], [place] [address] Johnnie Alcocer MD Surgeon General Surgery 03/23/[address] [place], [place] [address] documented as of this encounter
--- OUTSIDE RECORDS SUMMARY | 2022-06-15 13:15 | XMS_ITS | Encounter Summary ---
:1945 Author Organization [place] Address [address] [place] [address] Care Team Providers Name Role Phone Lucero Stevenson MD Primary Care Provider [phone] Chastity Montero MD Unavailable [phone] Johnnie Alcocer MD Unavailable Encounter Details Date Type Department Care Team Description 06/06/2017 Anticoagulation Therapy [facility] Pulmonary embolism Visit Clinic [place] and infarction (H) [address] [facility] [...] encounter Progress Notes Qing Guy, CHANDLER - 06/06/2017 2:11 PM CST ANTICOAGULATION FOLLOW-UP CLINIC VISIT Patient Name: Charlette Brush Date: 06/06/2017 Contact Type: Face to Face SUBJECTIVE: Patient Findings Positives No Problem Findings OBJECTIVE INR Protime Date Value Ref Range Status 06/06/2017 3.1 (A) 0.86 - 1.14 Final ASSESSMENT / PLAN INR assessment THER Recheck INR In: 4 WEEKS INR Location Clinic Anticoagulation Summary as of 06/06/2017 INR goal 2.0-3.0 Today's INR 3.1! Maintenance plan 10 mg (10 mg x 1) on Mon, Wed, Fri; 7.5 mg (7.5 mg x 1) all other days Full instructions 10 mg on Mon, Wed, Fri; 7.5 mg all other days Weekly total 60 mg No change documented Qing Guy, RN Plan last modified Susie Murphy (09/26/2016) Next INR check 07/04/2017 Target end date Indefinite Indications 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] Anticoagulation Episode Summary INR check location [facility] Preferred lab Send INR reminders to [facility] Comments 7.5mg & 10mg tabs - devaughn dose // APPT CARD ONLY Anticoagulation Care Providers Provider Role Specialty Phone number Lucero Stevenson MD Pediatrics [phone] See the Encounter Report to view Anticoagulation Flowsheet and Dosing Calendar (Go to Encounters tabin chart review, and find the Anticoagulation Therapy Visit) Qing Guy RN MAKER BENCH documented in this encounter Plan of Treatment Upcoming Encounters Date Type Specialty Care Team Description 11/15/2022 Virtual Visit Pharm D Haylie Cheung, [facility] [address] [facility] [place] [address] (Lena max) 11/15/2022 Virtual Visit IM/Peds Yane Barraza MD [address] [facility] [place] [address] (Lena max) 03/03/2023 Virtual Visit Neurology Erlinda Barber MD [address] [facility] [address] [place] [address] (Wo rk) documented as of this encounter Procedures Procedure Name Priority Date/Time Associated Diagnosis Comme nts INR POINT OF CARE Routine 06/06/2017 Pulmonary embolism and Results for this infarction (H) procedure are in the results section . documented in this encounter Results (ABNORMAL) INR point of care (06/06/2017) athologist Signature INR Point of 3.1 (A) 0.86 - [facility] 1.14 [facility] Specimen (Source) Anatomical Location Collection Method / Collectio n Time Received Time / Laterality Volume 06/06/2017 Lucero Stevenson MD LAB - BLOOD ORDERABLES Performing Organization Address City/State/ZIP Code Phon e Number [facility] [address] [place] [address] documented in this encounter Visit Diagnoses Diagnosis Pulmonary embolism and infarction (H) documented in this encounter Care Teams Lock Up Worker Relationship Specialty Start Date End Date Lucero Stevenson MD PCP - General Pediatrics 10/11/11 04/22/19 Chastity Montero MD MD Dermatology 09/23/14 [address] [facility] [address] [place] [address] Johnnie Alcocer MD Surgeon General Surgery 03/23/[address] [place], [place] [phone] documented as of this encounter
--- OUTSIDE RECORDS SUMMARY | 2022-06-15 13:15 | XMS_ITS | Encounter Summary ---
:1945 Author Organization [place] Address [address] [place] [address] Care Team Providers Name Role Phone Lucero Stevenson MD Primary Care Provider [phone] Chastity Montero MD Unavailable [phone] Johnnie Alcocer MD Unavailable Reason for Visit Reason Comments Derm Problem Charlette is here today for a fo llow up on her leg ulcer. Charlette notes They are getting better Encounter Details Date Type Department Care Team Description 04/24/2017 Office Visit Health Dermatology Chastity Montero, Dermatitis [address] [facility] 3rd Floor [address] [facility] [address] [place], [place] [phone] [place] [address] (Wo rk) Social History Tobacco [...] documented as of this encounter Progress Notes Chastity Montero MD - 04/24/2017 9:30 AM CDT [facility] Dermatology Note Dermatology Problem List: 1.1. Nummular eczema + stasis dermatitis + lymphedema on the lower legs 2. Allergic contact allergies:?? Status post patch testing in 2001 with multiple allergens. Relevantreactions were found to benzyl alcohol, lanolin, neomycin, and class B corticosteroids. Does well with hydrocortisone ointment rather than cream. -Strong or very strong reactions: Bactroban, Moisturel, Nutraderm, clotrimazole cream, amcinonide, budesonide, amerchol L 101 (lanolin marker), and bacitracin -Mild reactions: Aveeno moisturizing lotion, hydrocortisone 2.5% cream, Elidel cream, hydrocortisonecream 1%, Balsam of Cecilia, Euxyl K 400, and benzoyl alcohol -Doubtful reactions: Vanicream light, Ombrelle Jenni, Wal-Sporin ointment, Suave shampoo, bactrobanointment, paraben mix, benzoyl peroxide 3. Left lower back ulceration since 08/2012; has healed. 4. Left lower leg venous stasis ulcer: start using hydrocortisone 2.5% ointment. Encounter Date: Apr 24, 2017 CC: Chief Complaint Patient presents with ??? Derm Problem Charlette is here today for a follow up on her leg ulcer. Charlette notes They are getting better History of Present Illness: Ms. Charlette Brush is a 72 year old female who presents for follow up of leg ulcer. She was last seen on 03/27/17 for a leg ulcer. Since that time she has started lymphedema treatment 4 days a week. She has her legs wrapped at those appointments. Her right leg ulcer has healed and is much better. It is not longer draining fluid. She continues to apply hydrocortisone to that area. The area on her backis well healed. Last she noticed a small wound on her third toe of her right foot. It was bleeding onto her wraps. It was painful when it first started but now it not as bad. She has been washing it with vinegar water and using desoximetasone. Today she noticed new bruising on her right bethea after taking off her leg wraps. It is not painful and there is no drainage. She has new skin breakdown on the left bethea. Past Medical History: Patient Active Problem List Diagnosis ??? Essential hypertension, benign ??? Pulmonary embolism and infarction (H) ??? Morbid obesity (H) ??? Other lymphedema ??? CEFERINO (obstructive sleep apnea) ??? CARDIOVASCULAR SCREENING; LDL GOAL LESS THAN 130 ??? Dermatitis, stasis ??? Advanced directives, counseling/discussion ??? Health Halfway ??? Binge eating ??? Eczema ??? Pre-diabetes ??? Vitamin D deficiency ??? FPC current use of anticoagulant therapy Past Medical History: Diagnosis Date ??? BENIGN HYPERTENSION 07/30/2003 ??? benign positional vertigo 09/08/2004 s/p canolith repositioning 07/21 ??? Coagulation disorder (H) Pulmonary embolism 2001 ??? GERD (gastroesophageal reflux disease) ??? CEFERINO (obstructive sleep apnea) nightly CPAP ??? Other lymphedema 11/04/2003 ??? PULM EMBOLISM/INFARCT NOS 11/20/2001 Past Surgical History: Procedure Laterality Date ??? CHOLECYSTECTOMY, OPEN 1969 ??? COLONOSCOPY N/A 01/13/2015 Procedure: COLONOSCOPY; Surgeon: Jose Juan Castaneda MD; Location: [facility] OR ? ? TONSILLECTOMY & ADENOIDECTOMY Social History: The patient is retired. Family History: Daughter with Darier's disease. No family history of melanoma. Medications: Current Outpatient Prescriptions Medication Sig Dispense Refill ??? desoximetasone (TOPICORT) 0.05 % GEL Apply 1 g topically two times daily 180 g 3 ??? hydrocortisone 2.5 % ointment Daily as needed 180 g 3 ??? order for DME 1: gradient Compression Wraps; 2: Cast Boots; 3: velcro or zipper compression garment-custom for BLE knee or thigh high; 1 each 0 ??? atenolol (TENORMIN) 25 MG tablet Take 1 tablet (25 mg) by mouth 2 times daily 180 tablet 3 ??? triamterene-hydrochlorothiazide (DYAZIDE) 37.5-25 MG per capsule Take 1 capsule by mouth every morning 90 capsule 3 ??? losartan (COZAAR) 100 MG tablet Take 1 tablet (100 mg) by mouth daily 90 tablet 3 ??? order for DME Equipment being ordered: 4 wheeled walker for home use 1 Units 0 ??? warfarin (COUMADIN) 7.5 MG tablet Take 7.5mg TTSS or as directed by INR Clinic. 50 tablet 1 ??? warfarin (COUMADIN) 10 MG tablet Take 10mg MWF or as directed by INR clinic 40 tablet 1 ? ? Elastic Bandages & Supports (JOBST KNEE HIGH COMPRESSION SM) MISC Please custom-measure for ZIPPERED knee-high compression stockings. and issue 2 each 3 ??? ORDER FOR DME Equipment being ordered: CPAP mask Please dispense- Comfort gel blue nasal mask with HGR,DOM-Size Small Patient's machine is a Respironics by [employer], [employer] Star Auto A-Flex System 1. 1 Device 1 ??? ORDER FOR DME daily Auto-CPAP: Max 11 cm H2O, Min 11cm H2O Continuous, Lifetime need and heated humidity. 1 Device 0 ??? Cholecalciferol (VITAMIN D PO) Take 10,000 Units by mouth. ??? cetirizine (ZYRTEC) 10 MG tablet Take 10 mg by mouth 2 times daily ??? acetaminophen (TYLENOL) 325 MG tablet Take by mouth daily Allergies Allergen Reactions ??? Cephalexin Hives Keflex - hives ??? Lanolin Other (See Comments) skin irritation ??? Lisinopril Cough ??? Neomycin Other (See Comments) skin irritation ??? Penicillins Hives ??? Bactroban [Mupirocin Calcium] Rash Review of Systems: -As per HPI -Constitutional: The patient denies fatigue, fevers, chills, unintended weight loss, and night sweats. -HEENT: Patient denies nonhealing oral sores. -Skin: As above in HPI. No additional skin concerns. Physical exam: Vitals: There were no vitals taken for this visit. GEN: This is a well developed, well-nourished female in no acute distress, in a pleasant mood. SKIN: Focused examination of the lower extremities and lower back was performed. -There is large 2 x 4.5 cm crusted plaque with a small erosion at the superior edge on the left lower bethea that shows venous stasis changes -There is large area of bruising on the right bethea -There is a small 5mm ulcer on the plantar surface of the right 3rd toe No ulcerations appear infected today. -No other lesions of concern on areas examined. Impression/Plan: 1. Venous stasis ulcer with overlying area of allergic contact dermatitis: this healing well and looks better than last visit. ?? Continue hydrocortisone 2.5% ointment to wound and add to area now on left lower leg ?? Okay for patient to have wound wrapped as long as hydrocortisone is in place. 2. Dermatitis/ulcer of left lower back: This is well healed 3. Toe Ulcer: on 3rd toe of the right foot. It is very small and not infected. ?? Continue to apply desoximetasone and use vinegar soaks 4. Venous stasis: patient has new discoloration/bruising on right bethea. No evidence of breakdown or infection at this time. Encourage patient to discuss this with her lymphedema team. Will monitor. 5. Lymphedema: patient follows with lymphedema team Follow-up in 3 months. Staff Involved: IPako MS4, served as a scribe for Dr. Chastity Montero. .The medical student acted as scribe for this encounter. The encounter documented above was completely performed by myself. Chastity Montero MD Kristie Kinsey - 04/24/2017 9:30 AM CDT Images from the original note were not included. Pictures were placed in Pt's chart today for future reference. documented in this encounter Nursing Notes Yancy Montero CMA - 04/24/2017 9:30 AM CDT Dermatology Rooming Note Charlette Brush's goals for this visit include: Chief Complaint Patient presents with ??? Derm Problem Charlette is here today for a follow up on her leg ulcer. Charlette notes They are getting better ABBI Fine documented in this encounter Plan of Treatment Upcoming Encounters Date Type Specialty Care Team Description 11/15/2022 Virtual Visit Pharm Haylie Gonzalez, [facility] [address] [place] [place] [address] (Wo rk) 11/15/2022 Virtual Visit IM/Peds Yane Barraza MD [address] [facility] [address] [place], [place] [id number] (Wo rk) 03/03/2023 Virtual Visit Neurology Erlinda Barber MD [address] [facility] [address] [place], [place] [address] (Wo rk) documented as of this encounter Visit Diagnoses Diagnosis Dermatitis Contact dermatitis and other eczema, due to unspecified cause documented in this encounter Care Teams Dolly Operator Relationship Specialty Start Date End Date Lucero Stevenson MD PCP - General Pediatrics 10/11/11 04/22/19 Chastity Montero MD MD Dermatology 09/23/14 [address] [facility] [address] [place], [place] [address] Johnnie Alcocer MD Surgeon General Surgery 03/23/[address] [place], [place] [address] documented as of this encounter
--- OUTSIDE RECORDS SUMMARY | 2022-06-15 13:16 | XMS_ITS | Encounter Summary ---
:1945 Author Organization [facility] Address [address] [place] [address] Care Team Providers Name Role Phone Lucero Stevenson MD Primary Care Provider [phone] Chastity Montero MD Unavailable [phone] Johnnie Alcocer MD Unavailable Reason for Visit Rehab Therapy Integrated Services (Routine) - Closed Specialty Diagnoses / Procedures Referred By Contact Refer red To Contact Diagnoses MEDICARE//Lymphedema of both lower extremities M [facility] Procedures LYMPHEDEMA EVALUATION REHABILITATION [place] [address] [facility] [address] [place] [address] Phone: Fax: Referral ID Status Reason Start Date Expiration Date Visits V isits Requested Authorized EH-PT/OT/ANIMAL REHABILITATOR Closed 03/23/2017 07/16/2017 365 365 ([id number]) Encounter Details Date Type Department Care Team Description 04/13/[address] [facility] Kelly Chele Ly mphedema of both lower extremities (Primary Dx); Rehabilitation A Difficulty dressing self Services [facility] [address] [place] [address] [facility] [phone] [place] [address] Social History Tobacco Use Types [...] 05/03/2021 organizations such as baptist groups, unions, fraDealised or athletic groups, or school groups? How [...] machine is a Respi ronics by [employer], [employer] Star Auto A-Flex System 1. ORDER FOR [...] 1 11/1405/20/2017 MG tabletIndications: directed by INR boat outfitter current use of clinic anticoagulant therapy warfarin (COUMADIN) 7.5 Take 7.5mg TTSS or 50 tablet 1 11/1405/22/2017 MG tabletIndications: as directed by INR boat outfitter current use of Clinic. anticoagulant therapy documented as of this encounter Progress Notes Chele Mendoza - 04/13/2017 11:59 PM CDT 04/13/17 0900 Signing Clinician's Name / Credentials Signing clinician's name / credentials Omkar Mendoza OTR/L; CLT Session Number Session Number 04/27, 07/05 (medicare primary; BCBS secondary) Adult OT Eval [...] promoteincreased I with transfers Target date 06/02/17 Goal 5 Goal identifier 1d Goal description [...] 06/02/17 Date met 04/05/17 Manual Therapy Minutes 58 Minutes Skilled Intervention education; MLD' GCB's Patient Response Pt reports she flet rubbing throughout the day yesterday behond her knee and when she doffed wraps this am had blood tinge staining on some of the 10cm GCB's Treatment Detail Skin inspected based of pt report of blood stain and rubbing into posterior knee crease RLE. Region of posterior medial knee crease red, reaw looking, but no blood or open skin noted. @/2 pt body habitus and need to use compression at knee crease for hold of GCB's, plan set to keep RLE free from compression 24hrs to let skin heal and not reaggrevate region. MLD to short neck, abdominal sequence, B axillary clearing and B axillaryu-inguinal anastomosis established. Fluid shed lateralfrom central abdomen and pulled up B flankls to b axilla. Inguinal Ln pumping and fibrosis work performed to BLE bethea and calves where tissue tough. R hip lobule worked on but difficult to defalte and gets minimal influence from time in clinic; pt did report positioning herself in sidelying approx 1 hr and felt less fluid accumulation and less heavy lobule thereafter for a bit; pt will cont to perform this as MLD may be wasted time on this region and plan to have compression address when fit for garments. Pt reports not wrapping thighs and educated she needs to do this nightyl as her thigh lobules bow over knee crease and making lower elg decongestion and skin compromised more difficult to attend to. Pt also educated dshe needs to stablish where she stands with coverage for garemnts and flexitouch. She has multiple options for garments combinations (kelly with knee highs; velcro wraps foot-thigh; zipper knee highs and use flexitouch and ex's to address thighs). She needs to decide as fitter appt should be established next week for best fitting. Pt taught next few steps MLD sequence and she wasable to display I with steps establkished for her home routine so far. Education Learner Patient Readiness Acceptance Method Explanation;Demonstration Response Verbalizes understanding;Needs reinforcement Plan Plan for next session check skin; get RLE wrapped as able; cont MLD Total Session Time Timed Code Treatment Minutes 58 Total Treatment Time (sum of timed and untimed services) 58 documented in this encounter Miscellaneous Notes Addendum Note - Chele Mendoza - 04/13/2017 11:59 PM CDTEncounter addended by: Chele Mendoza, OT on: 04/21/2017 10:02 AM
Actions taken: Sign clinical note, Flowsheet accepted documented in this encounter Plan of Treatment Upcoming Encounters Date Type Specialty Care Team Description 11/15/2022 Virtual Visit Pharm Haylie Gonzalez, [facility] [address] [facility] [place] [address] (Lena max) 11/15/2022 Virtual Visit IM/Peds Yane Barraza MD [address] [facility] [place] [address] (Lena max) 03/03/2023 Virtual Visit Neurology Erlinda Barber MD [address] [facility] [address] [place] [address] (Lena max) documented as of this encounter Visit Diagnoses Diagnosis Lymphedema of both lower extremities - P rimary Difficulty dressing self documented in this encounter Care Teams Broom Worker Relationship Specialty Start Date End Date Lucero Stevenson MD PCP - General Pediatrics 10/11/11 04/22/19 Chastity Montero MD MD Dermatology 09/23/[address] [place] [address] [address] [place] [address] Johnnie Alcocer MD Surgeon General Surgery 03/23/17 [address] [facility] [address] [place] [address] documented as of this encounter
--- OUTSIDE RECORDS SUMMARY | 2022-06-15 13:16 | XMS_ITS | Encounter Summary ---
:1945 Author Organization [facility] Address [address] [place] [address] Care Team Providers Name Role Phone Lucero Stevenson MD Primary Care Provider [phone] Chastity Montero MD Unavailable [phone] Johnnie Alcocer MD Unavailable Reason for Visit Rehab Therapy Integrated Services (Routine) - Closed Specialty Diagnoses / Procedures Referred By Contact Refer red To Contact Diagnoses MEDICARE//Lymphedema of both lower extremities M [facility] Procedures LYMPHEDEMA EVALUATION REHABILITATION [place] [address] [facility] [address] [place] [address] Phone: Fax: Referral ID Status Reason Start Date Expiration Date Visits V isits Requested Authorized EH-PT/OT/SUPERVISOR CARDING Closed 03/23/2017 07/16/2017 365 365 ([id number]) Encounter Details Date Type Department Care Team Description 03/29/2017 Hospital Encounter [facility] Kelly Chele Ly mphedema of both lower extremities (Primary Dx); Rehabilitation A Difficulty dressing self Services [facility] [address] [facility] [address] [place] [address] [facility] [phone] [place] [address] Social History Tobacco Use Types [...] 05/03/2021 organizations such as mosque groups, unions, fraJusp or athletic groups, or school groups? How [...] machine is a Respi ronics by [employer], [email or web address] Star Auto A-Flex System 1. ORDER FOR [...] 1 11/1405/20/2017 MG tabletIndications: directed by INR terminal supervisor current use of clinic anticoagulant therapy warfarin (COUMADIN) 7.5 Take 7.5mg TTSS or 50 tablet 1 11/1405/22/2017 MG tabletIndications: as directed by INR terminal supervisor current use of Clinic. anticoagulant therapy documented as of this encounter Progress Notes Chele Mendoza - 03/29/2017 11:59 PM CDT 03/29/17 0900 Signing Clinician's Name / Credentials Signing clinician's name / credentials Omkar Mendoza OTR/L; CLT Session Number Session Number 09/23, 10/03 (medicare primary; BCBS secondary) Adult OT Eval [...] dressing, and functional transfers Target date 06/02/17 Goal 4 Goal identifier 1c Goal description [...] I with LB dressing Target date 06/02/17 Manual Therapy Minutes 74 Minutes Skilled Intervention education; GCB's Patient Response Pt reports intermittent discomfort in feet throughout day and evening last night but eventually tapered and able to tolerate through first 24hrs. Treatment Detail Pt presents with GCB donned and slight slipping from knee creases noted but overallgood hold given circumstances that B thighs very involved with lobuls draping over knee craeses and supicions would deter lower leg hold. Pt unable to stephany thigh wraps donned during day 2/2 balance and s tability. Wraps removed and good reductions obtaine din regions where compression donned with les sgirth, less tension in skin, and softening of fibrotic regions already noted. Therapist re-rolled and demo'd GCB donning for lower legs; handout issued. Pt performe dressing change and lotion application prior to therapist donning. Pt takes extra time to wrap 2/2 body habitus. Pt educated on thigh wrapping and issued materials to trial donning tonight. Stockinette; 3-15cm foam rolls per thigh; 1-12cm width/10m length GCB and 1-12cm width/5m length issued to use. verbal instructions backed with handoutfor use tonight. Pt asked to remove GCB prior to appt for time needed to practice re- applying and therapist to pamela to thigh and see which appropach best for hold and max reductions. Education Learner Patient Readiness Acceptance Method Booklet/handout;Explanation;Demonstration Response Verbalizes understanding;Needs reinforcement Plan Plan for next session [facility] pt trial of thigh wrapping; pamela to L lower leg and practice donning with pt for lower legs; wrap thigh but remove to practice and tease out best hold appropach and then have pt trial Monday Total Session Time Timed Code Treatment Minutes 74 Total Treatment Time (sum of timed and untimed services) 74 documented in this encounter Miscellaneous Notes Addendum Note - Chele Mendoza - 03/29/2017 11:59 PM CDTEncounter addended by: Chele Mendoza, OT on: 04/21/2017 10:09 AM
Actions taken: Sign clinical note, Flowsheet accepted documented in this encounter Plan of Treatment Upcoming Encounters Date Type Specialty Care Team Description 11/15/2022 Virtual Visit Pharm Haylie Gonzalez, [facility] [address] [facility] [address] [place] [id number] (Wo rk) 11/15/2022 Virtual Visit IM/Peds Yane Barraza MD [address] [facility] [address] [place] [phone] (Wo rk) 03/03/2023 Virtual Visit Neurology Erlinda Barber MD [address] [facility] [address] [place], [place] [id number] (Wo rk) documented as of this encounter Visit Diagnoses Diagnosis Lymphedema of both lower extremities - P rimary Difficulty dressing self documented in this encounter Care Teams Director Television News Relationship Specialty Start Date End Date Lucero Stevenson MD PCP - General Pediatrics 10/11/11 04/22/19 Chastity Montero MD MD Dermatology 09/23/14 [address] [facility] [address] [place], [place] [phone] Johnnie Alcocer MD Surgeon General Surgery 03/23/17 [address] [facility] [address] [place], [place] [address] documented as of this encounter
--- OUTSIDE RECORDS SUMMARY | 2022-06-15 13:16 | XMS_ITS | Encounter Summary ---
:1945 Author Organization [facility] Address [address] [place] [address] Care Team Providers Name Role Phone Lucero Stevenson MD Primary Care Provider [phone] Chastity Montero MD Unavailable [phone] Johnnie Alcocer MD Unavailable Encounter Details Date Type Department Care Team Description 04/10/2017 Anticoagulation Therapy [facility] Pulmonary embolism Visit Clinic [place] and infarction (H) [address] [facility] [address] [place] [address] [...] encounter Progress Notes Qing Guy, CHANDLER - 04/10/2017 11:21 AM CDT ANTICOAGULATION FOLLOW-UP CLINIC VISIT Patient Name: Charlette Brush Date: 04/10/2017 Contact Type: Face to Face SUBJECTIVE: Patient Findings Positives No Problem Findings OBJECTIVE INR Protime Date Value Ref Range Status 04/10/2017 2.7 (A) 0.86 - 1.14 Final ASSESSMENT / PLAN INR assessment THER Recheck INR In: 4 WEEKS INR Location Clinic Anticoagulation Summary as of 04/10/2017 INR goal 2.0-3.0 Today's INR 2.7 Maintenance plan 10 mg (10 mg x 1) on Mon, Wed, Fri; 7.5 mg (7.5 mg x 1) all other days Full instructions 10 mg on Mon, Wed, Fri; 7.5 mg all other days Weekly total 60 mg No change documented Qing Guy, RN Plan last modified Susie Murphy (09/26/2016) Next INR check 05/08/2017 Target end date Indefinite Indications 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] Anticoagulation Episode Summary INR check location Coumadin Clinic Preferred lab Send INR reminders to [facility] Comments 7.5mg & 10mg tabs - devaughn dose // APPT CARD ONLY Anticoagulation Care Providers Provider Role Specialty Phone number Lucero Stevenson MD Pediatrics [phone] See the Encounter Report to view Anticoagulation Flowsheet and Dosing Calendar (Go to Encounters tabin chart review, and find the Anticoagulation Therapy Visit) Qing Guy RN documented in this encounter Plan of Treatment Upcoming Encounters Date Type Specialty Care Team Description 11/15/2022 Virtual Visit Pharm Haylie Gonzalez K sunday Rojas, [facility] [address] [facility] [place] [address] (Lena max) 11/15/2022 Virtual Visit IM/PedYane Muir MD [address] [facility] [place] [address] (Lena max) 03/03/2023 Virtual Visit Neurology Erlinda Barber MD [address] [facility] [address] [place] [address] (Wo rk) documented as of this encounter Procedures Procedure Name Priority Date/Time Associated Diagnosis Comme nts INR POINT OF CARE Routine 04/10/2017 Pulmonary embolism and Results for this infarction (H) procedure are in the results section . documented in this encounter Results (ABNORMAL) INR point of care (04/10/2017) athologist Signature INR Point of 2.7 (A) 0.86 - [facility] 1.14 [facility] Specimen (Source) Anatomical Location Collection Method / Collectio n Time Received Time / Laterality Volume 04/10/2017 Lucero Stevenson MD LAB - BLOOD ORDERABLES Performing Organization Address City/State/ZIP Code Phon e Number [facility] [address] [place] [address] documented in this encounter Visit Diagnoses Diagnosis Pulmonary embolism and infarction (H) documented in this encounter Care Teams Supervisor Public Message Service Relationship Specialty Start Date End Date Lucero Stevenson MD PCP - General Pediatrics 10/11/11 04/22/19 Chastity Montero MD MD Dermatology 09/23/14 [address] [facility] [address] [place] [address] Johnnie Alcocer MD Surgeon General Surgery 03/23/[address] [place], [place] [phone] documented as of this encounter
--- OUTSIDE RECORDS SUMMARY | 2022-06-15 13:16 | XMS_ITS | Encounter Summary ---
:1945 Author Organization [facility] Address [address] [place] [address] Care Team Providers Name Role Phone Lucero Stevenson MD Primary Care Provider [phone] Chastity Montero MD Unavailable [phone] Johnnie Alcocer MD Unavailable Reason for Visit Rehab Therapy Integrated Services (Routine) - Closed Specialty Diagnoses / Procedures Referred By Contact Refer red To Contact Diagnoses MEDICARE//Lymphedema of both lower extremities M [facility] Procedures LYMPHEDEMA EVALUATION REHABILITATION [place] [address] [facility] [address] [place] [address] Phone: Fax: Referral ID Status Reason Start Date Expiration Date Visits V isits Requested Authorized EH-PT/OT/LIFT SLAB OPERATOR Closed 03/23/2017 07/16/2017 365 365 ([id number]) Encounter Details Date Type Department Care Team Description 04/04/2017 Hospital Encounter [facility] Kelly Chele Ly mphedema of both lower extremities (Primary Dx); Rehabilitation A Difficulty dressing self Services [facility] [address] [facility] [address] [place] [address] [facility] [phone] [place] [address] Social History Tobacco Use Types [...] 05/03/2021 organizations such as moravian groups, unions, fraNFi Studios or athletic groups, or school groups? [...] machine is a Respi ronics by [employer], [employer] Star Auto A-Flex System 1. ORDER FOR [...] 11/1405/20/2017 MG tabletIndications: directed by INR terminal make up operator current use of clinic anticoagulant therapy warfarin (COUMADIN) 7.5 Take 7.5mg TTSS or 50 tablet 1 11/1405/22/2017 MG tabletIndications: as directed by INR terminal make up operator current use of Clinic. anticoagulant therapy documented as of this encounter Progress Notes Chele Mendoza - 04/04/2017 11:59 PM CDT 04/04/17 0900 Signing Clinician's Name / Credentials Signing clinician's name / credentials Omkar Mendoza OTR/L; CLT Session Number Session Number 12/24, 01/03 (medicare primary; BCBS secondary) Adult OT Eval [...] dressing Target date 06/02/17 Manual Therapy Minutes 80 Minutes Skilled Intervention education; GCB's Patient Response Pt reports redness in RLE she was concerned about and did not pamela GCB mon or Monday until redness went away. Blisters have formed in superior aspect RLE where compression doffed but blisters roofed and skin no longer appearing red. Pt wrapped RLE lasy night w/o issues. Treatment Detail Weekend adherence to POC discussed. Pt did right thing in removing and delaying return to RLE wrappping 2/2 red skin but no other symptoms noted of cocnern per pt report (no warmth, nopain; no increased swelling; no rash development). Pt educated ok if skin looks irritated but as long as other symtps do not arise probably ok to keep donned. Pt has only been wrapping her left thigh for practice at home-limb looks reduced but her hold continues to be a problem. Therapist wrapped BLE to knee and had pt demo thigh wrapping. Herf tension is lacking creating poor hold and 2/2 body habitus she struggles accessing her upper legs 2/2 heavy flexcion at hips when donning from standing position. Pt forsees sitting EPOB too difficult 2/2 surface at home too soft on bed and may not be able toperform from supine 2/2 abdominal tissue getting in the way. Pt educated on how to use contour and bowing in thighs to her advantage regarding hold and containment for reductions. She may improve with time and practice, but velcro wraps and flexitouch revisited in conversation and education as this may provide pt with less stress to pamela, get reductions in B thighs, and make wrapping easier or fit ofcompression garments she will soon decide upon for daily use easier to pamela and keep in place. Pt will recheck with insurance. Thigh wraps removed and pt to pamela tonight before bed as planned daily/nightly. Education Learner Patient Readiness Acceptance Method Explanation;Demonstration Response Verbalizes understanding;Demonstrates understanding;Needs reinforcement Plan Plan for next session measure; cont thigh wrapping donning ed; get muscle pumping and MLD ex's started top aid BLE with focus to thighs Total Session Time Timed Code Treatment Minutes 80 Total Treatment Time (sum of timed and untimed services) 80 documented in this encounter Miscellaneous Notes Addendum Note - Chele Mendoza - 04/04/2017 11:59 PM CDTEncounter addended by: Chele Mendoza, OT on: 04/21/2017 10:07 AM
Actions taken: Sign clinical note, Flowsheet accepted documented in this encounter Plan of Treatment Upcoming Encounters Date Type Specialty Care Team Description 11/15/2022 Virtual Visit Pharm Haylie Gonzalez, [facility] [address] [place] [address] (Lena max) 11/15/2022 Virtual Visit [place] [address] [place] [address] [place] [address] (Wo winter) 03/03/2023 Virtual Visit Neurology Erlinda Barber MD [address] [facility] [address] [place] [address] (W[place] winter) documented as of this encounter Visit Diagnoses Diagnosis Lymphedema of both lower extremities - P rimary Difficulty dressing self documented in this encounter Care Teams Systems Support Officer Relationship Specialty Start Date End Date Lucero Stevenson MD PCP - General Pediatrics 10/11/11 04/22/19 Chastity Montero MD MD Dermatology 09/23/14 [address] [facility] [address] [place] [address] Johnnie Alcocer MD Surgeon General Surgery 03/23/17 [address] [facility] [address] [place] [address] documented as of this encounter
--- OUTSIDE RECORDS SUMMARY | 2022-06-15 13:16 | XMS_ITS | Encounter Summary ---
:1945 Author Organization [facility] Address [address] [place] [address] Care Team Providers Name Role Phone Lucero Stevenson MD Primary Care Provider [phone] Chastity Montero MD Unavailable Johnnie Alcocer MD Unavailable Reason for Visit Rehab Therapy Integrated Services (Routine) - Closed Specialty Diagnoses / Procedures Referred By Contact Refer red To Contact Diagnoses MEDICARE//Lymphedema of both lower extremities M [facility] Procedures LYMPHEDEMA EVALUATION REHABILITATION [place] [address] [facility] [address] [place] [address] Phone: Fax: Referral ID Status Reason Start Date Expiration Date Visits V isits Requested Authorized EH-PT/OT/WARM IN WORKER Closed 03/23/2017 07/16/2017 365 365 ([id number]) Encounter Details Date Type Department Care Team Description 04/19/2017 Hospital Encounter M [facility] Kelly Chele Ly mphedema of both lower extremities (Primary Dx); Rehabilitation A Difficulty dressing self Services [place] [facility] [address] [place] [address] [facility] [phone] [place] [address] Social History Tobacco Use Types [...] 05/03/2021 organizations such as mandaeism groups, unions, fraDJZ or athletic groups, or school groups? How [...] machine is a Respi ronics by [employer], [employer] Star Auto A-Flex System 1. ORDER FOR [...] 1 11/1405/20/2017 MG tabletIndications: directed by INR buttermilk drier operator current use of clinic anticoagulant therapy warfarin (COUMADIN) 7.5 Take 7.5mg TTSS or 50 tablet 1 11/1405/22/2017 MG tabletIndications: as directed by INR buttermilk drier operator current use of Clinic. anticoagulant therapy documented as of this encounter Progress Notes Chele Mendoza - 04/19/2017 11:59 PM CDT 04/19/17 0900 Signing Clinician's Name / Credentials Signing clinician's name / credentials Omkar Mendoza OTR/L; CLT Session Number Session Number 30/04, (medicare primary; BCBS secondary) Adult OT Eval [...] 06/02/17 Date met 04/05/17 Manual Therapy Minutes 60 Minutes Skilled Intervention education; MLD' GCB's Patient Response Pt reports no issues ast 24hrs. Pt did get thighs wrapped but slipping as usual after approx 4 hrs wearing per her report Treatment Detail Skin inspected and posterior knee crease continues to heal and no issues identified. MLD to short neck, abdominal sequence and BLE sequence with focus to fibrotic tissue at distal lower legs and medial aspect each leg above and below knee crease feeling like heavy venous distention. Tissue softer after yesterday's session but stiffens up after minimal time out of compression. GCB's donned to knee crease as past session and POC discussed. Pt able to speak with tactile rep and plans to get appt for flexitouch setup once info provided to tactle rep hopefully next week as rep out of town. Education Learner Patient Readiness Acceptance Method Explanation Response Verbalizes understanding Plan Plan for next session full measure; re-wrap; see how MLD serving LE's-cont with MLD for tissue softening at least Total Session Time Timed Code Treatment Minutes 60 Total Treatment Time (sum of timed and untimed services) 60 documented in this encounter Miscellaneous Notes Addendum Note - Chele Mendoza - 04/19/2017 11:59 PM CDTEncounter addended by: Chele Mendoza, OT on: 04/21/2017 10:00 AM
Actions taken: Sign clinical note, Flowsheet accepted documented in this encounter Plan of Treatment Upcoming Encounters Date Type Specialty Care Team Description 11/15/2022 Virtual Visit Pharm Haylie Gonzalez, [facility] [address] [place] [address] (Wo rk) 11/15/2022 Virtual Visit IM/Peds Yane Barraza MD [address] [place] [address] (Wo rk) 03/03/2023 Virtual Visit Neurology Erlinda Barber MD [address] [facility] [address] [place], [place] [phone] (Wo rk) documented as of this encounter Visit Diagnoses Diagnosis Lymphedema of both lower extremities - P rimary Difficulty dressing self documented in this encounter Care Teams Lens Assistant Relationship Specialty Start Date End Date Lucero Stevenson MD PCP - General Pediatrics 10/11/11 04/22/19 Chastity Montero MD MD Dermatology 09/23/14 [address] [facility] [address] [place], [place] [address] Johnnie Alcocer MD Surgeon General Surgery 03/23/[address] [place], [place] [phone] documented as of this encounter
--- OUTSIDE RECORDS SUMMARY | 2022-06-15 13:16 | XMS_ITS | Encounter Summary ---
:1945 Author Organization [facility] Address [address] [place] [address] Care Team Providers Name Role Phone Lucero Stevenson MD Primary Care Provider [phone] Chastity Montero MD Unavailable [phone] Johnnie Alcocer MD Unavailable Reason for Visit Rehab Therapy Integrated Services (Routine) - Closed Specialty Diagnoses / Procedures Referred By Contact Refer red To Contact Diagnoses MEDICARE//Lymphedema of both lower extremities M [facility] Procedures LYMPHEDEMA EVALUATION REHABILITATION [place] [address] [facility] [address] [place] [address] Phone: Fax: Referral ID Status Reason Start Date Expiration Date Visits V isits Requested Authorized EH-PT/OT/BOARD HANDLER Closed 03/23/2017 07/16/2017 365 365 ([id number]) Encounter Details Date Type Department Care Team Description 04/07/2017 Hospital Encounter [facility] Kelly Chele Ly mphedema of both lower extremities (Primary Dx); Rehabilitation A Difficulty dressing self Services [place] [facility] [address] [place] [address] [facility] [phone] [place] [address] Social History Tobacco Use [...] 05/03/2021 organizations such as temple groups, unions, fraBioscan or athletic groups, or school groups? How [...] machine is a Respi ronics by [employer], [employer] Star Auto A-Flex System 1. ORDER FOR [...] 1 11/1405/20/2017 MG tabletIndications: directed by INR manager long term care current use of clinic anticoagulant therapy warfarin (COUMADIN) 7.5 Take 7.5mg TTSS or 50 tablet 1 11/1405/22/2017 MG tabletIndications: as directed by INR manager long term care current use of Clinic. anticoagulant therapy documented as of this encounter Progress Notes Chele Mendoza - 04/07/2017 11:59 PM CDT 04/07/17 1000 Signing Clinician's Name / Credentials Signing clinician's name / credentials Omkar Mendoza OTR/L; CLT Session Number Session Number 03/26, 04/05 (medicare primary; BCBS secondary) Adult OT Eval [...] Minutes 70 Minutes Skilled Intervention education; MLD; edmea ex's; GCB's Patient Response Pt rpeorts struggles with drying GCb's post laundering and never redonned last night post washing. Blisters have gotten bigger but not popped 2/2 no compression donned approx 14 hrs. Treatment Detail Pt presents with GCB's doffed and reports never donne dpost washing as she had trouble getting them dry. This was odd to hear as pt has laundered in past w/o issues. Therapist suggested removeing from bag when drying for quicker dry. Blisters a bit more full but still roofed and intact. Pt educaued on terminus strokes and diaphragm breathing and asked to perform daily starting this weekend. Pt introduced to theroy of MLD via education and then short neck, abdominal sequence, and R hip worked on. R hip lobule somewhat fibrotic and pt very full through lower abdomen and inguinal region making reduction to this lobule difficult. Pt asked to use sheet at night to hub lobule into hip and side for compression use to reduce. GCB's donned to knee crease same as previous sessions with padding to blistered region. LLE open skin continues to heel and not weep 2/2 less tension in skin via compression therapy. Handout issued for sle fMLD and edema ex's. Education Learner Patient Readiness Acceptance Method Explanation;Demonstration Response Verbalizes understanding;Demonstrates understanding;Needs reinforcement Plan Plan for next session see how eekend managed; check skin; cont MLD development Total Session Time Timed Code Treatment Minutes 70 Total Treatment Time (sum of timed and untimed services) 70 documented in this encounter Miscellaneous Notes Addendum Note - Chele Mendoza - 04/07/2017 11:59 PM CDTEncounter addended by: Chele Mendoza, OT on: 04/21/2017 10:06 AM
Actions taken: Sign clinical note, Flowsheet accepted documented in this encounter Plan of Treatment Upcoming Encounters Date Type Specialty Care Team Description 11/15/2022 Virtual Visit Pharm D Haylie Cheung, [facility] [address] [facility] [address] [place] [phone] (Wo rk) 11/15/2022 Virtual Visit IM/Peds Yane Barraza MD [address] [facility] [address] [place] [phone] (Wo rk) 03/03/2023 Virtual Visit Neurology Erlinda Barber MD [address] [facility] [address] [place], [place] [address] (Wo rk) documented as of this encounter Visit Diagnoses Diagnosis Lymphedema of both lower extremities - P rimary Difficulty dressing self documented in this encounter Care Teams Dermatology Physician Relationship Specialty Start Date End Date Lucero Stevenson MD PCP - General Pediatrics 10/11/11 04/22/19 Chastity Montero MD MD Dermatology 09/23/14 [address] [facility] [address] [place], [place] [phone] Johnnie Alcocer MD Surgeon General Surgery 9/7/17 [address] [place] [address] documented as of this encounter
--- OUTSIDE RECORDS SUMMARY | 2022-06-15 13:16 | XMS_ITS | Encounter Summary ---
:1945 Author Organization [facility] Address [address] [place] [address] Care Team Providers Name Role Phone Lucero Stevenson MD Primary Care Provider [phone] Chastity Montero MD Unavailable [phone] Johnnie Alcocer MD Unavailable Reason for Visit Rehab Therapy Integrated Services (Routine) - Closed Specialty Diagnoses / Procedures Referred By Contact Refer red To Contact Diagnoses MEDICARE//Lymphedema of both lower extremities M [facility] Procedures LYMPHEDEMA EVALUATION REHABILITATION [place] [address] [facility] [address] [place] [address] Phone: Fax: Referral ID Status Reason Start Date Expiration Date Visits V isits Requested Authorized EH-PT/OT/BIOMASS PRODUCTION MANAGER Closed 03/23/2017 07/16/2017 365 365 ([id number]) Encounter Details Date Type Department Care Team Description 04/05/2017 Hospital Encounter [facility] Kelly Chele Ly mphedema of both lower extremities (Primary Dx); Rehabilitation A Difficulty dressing self Services [place] [facility] [address] [place] [address] [facility] [phone] [place] [address] Social History Tobacco Use Types [...] 05/03/2021 organizations such as religious groups, unions, fraMiro or athletic groups, or school groups? How [...] machine is a Respi ronics by [employer], [employer] Star Auto A-Flex System 1. ORDER FOR [...] 1 11/1405/20/2017 MG tabletIndications: directed by INR medical terminologist current use of clinic anticoagulant therapy warfarin (COUMADIN) 7.5 Take 7.5mg TTSS or 50 tablet 1 11/1405/22/2017 MG tabletIndications: as directed by INR medical terminologist current use of Clinic. anticoagulant therapy documented as of this encounter Progress Notes Chele Mendoza - 04/05/2017 11:59 PM CDT 04/05/17 0900 Signing Clinician's Name / Credentials Signing clinician's name / credentials Omkar Mendoza OTR/L; CLT Session Number Session Number 01/23, 02/02 (medicare primary; BCBS secondary) Adult OT Eval [...] Therapy Minutes 70 Minutes Skilled Intervention education; GCB's; measurements Patient Response Pt reports no issues past 24hrs Treatment Detail Pt presents with wraps donned as planned. Wraps removed and skin checked; no cocnerns noted-blisters noted on anterior superior aspect of RLE yesterday unchanged-still roofed and holding fluid. Measurements display good redcutions and volume redcution goal (goal 2) met. Therapist notes no changes at 50cm measurements near knee and possibly pts lack of tension when applying thigh wraps-this education shared with pt and emphasis to pamela more aggressive pull with foam and GCB layers when starting at knee. Therapist redonned GCB's post dressing change; blisters covered with non adherant pads as yesterday. Pt educated on muscle pumping ex's and issue dhandout; pt asked to perform 2-3x/day at 20-25 reps and ohow to upgrade/increase challeneg of ex's along with safety with use discussed. laundering instructions reinforced and pt asked to wash next 1-2 days; she will launder pending back strain and tension reduced in order to re-wrap herself per her report. Ex's for muscle puming issued for knee flexion, knee extension, calf pumps; hip/thigh adduction with resistance, and hip flexion/marching ex's. Pt issued info for fitter and flexitouch medical supply rep. Education Learner Patient Readiness Acceptance Method Explanation;Demonstration Response Verbalizes understanding;Needs reinforcement Plan Plan for next session check skin; re-wrap to knee; have pt practice thigh wrapping; any feedback on garments/coverage Total Session Time Timed Code Treatment Minutes 70 Total Treatment Time (sum of timed and untimed services) 70 Chele Mendoza - 04/05/2017 11:59 PM CDT 04/05/17 0900 Signing Clinician's Name / Credentials Signing clinician's name / credentials Omkar Kelly OTR/L; CLT Discipline Discipline OT Lower Extremity Girth Measurements RT: Great Toe 8.5 cms RT: MTP's 25.7 cms RT: Arch of Foot 25.3 cms RT: Calcaneous 34.4 RT: 10 cm above heel 30.8 cms RT: 20 cm above heel 37.9 cms RT: 30 cm above heel 56 cms RT: 40 cm above heel 63.5 cms RT: 50 cm above heel 84.6 cms RT: 60 cm above heel 95.1 cms RT: 70 cm above heel 97 cms RT: Lower Extremity Total Volume (10cm-70cm) 06772.18 LT: Great Toe 9.7 cms LT: MTP's 26 cms LT: Arch of Foot 25.3 cms LT: Calcaneous 36.1 LT: 10 cm above heel 34.5 cms LT: 20 cm above heel 50 cms LT: 30 cm above heel 68.2 cms LT: 40 cm above heel 64.9 cms LT: 50 cm above heel 83.7 cms LT: 60 cm above heel 89.7 cms LT: 70 cm above heel 97 cms LT: Lower Extremity Total Volume (10cm-70cm) [address].32 documented in this encounter Miscellaneous Notes Addendum Note - Chele Mendoza - 04/05/2017 11:59 PM CDTEncounter addended by: Chele Mendoza, OT on: 04/21/2017 10:07 AM
Actions taken: Sign clinical note, Flowsheet accepted Addendum Note - Chele Mendoza - 04/05/2017 11:59 PM CDTEncounter addended by: Chele Mendoza, OT on: 04/21/2017 10:14 AM
Actions taken: Sign clinical note, Flowsheet accepted documented in this encounter Plan of Treatment Upcoming Encounters Date Type Specialty Care Team Description 11/15/2022 Virtual Visit Pharm Haylie Gonzalez, [facility] [address] [place] [address] (Wo rk) 11/15/2022 Virtual Visit IM/PedYane Muir MD [address] [place] [phone] (Wo rk) 03/03/2023 Virtual Visit Neurology Erlinda Barber MD [address] [facility] [address] [place], [place] [address] (Wo rk) documented as of this encounter Visit Diagnoses Diagnosis Lymphedema of both lower extremities - P rimary Difficulty dressing self documented in this encounter Care Teams Para Machine Operator Relationship Specialty Start Date End Date Luecro [place] MD PCP - General Pediatrics 10/11/11 04/22/19 Chastity Montero MD MD Dermatology 09/23/14 [address] [facility] [address] [place], [place] [address] Johnnie Alcocer MD Surgeon General Surgery 03/23/[address] [place], [place] [address] documented as of this encounter
--- OUTSIDE RECORDS SUMMARY | 2022-06-15 13:16 | XMS_ITS | Encounter Summary ---
:1945 Author Organization [place] [facility] Address [address] [place] [address] Care Team Providers Name Role Phone Lucero Stevenson MD Primary Care Provider [phone] Chastity Montero MD Unavailable [phone] Johnnie Alcocer MD Unavailable Reason for Visit Rehab Therapy Integrated Services (Routine) - Closed Specialty Diagnoses / Procedures Referred By Contact Refer red To Contact Diagnoses MEDICARE//Lymphedema of both lower extremities M [facility] Procedures LYMPHEDEMA EVALUATION REHABILITATION [place] [address] [facility] [address] [place] [address] Phone: Fax: Referral ID Status Reason Start Date Expiration Date Visits V isits Requested Authorized EH-PT/OT/ELECTRONICS INSTRUCTOR Closed 03/23/2017 07/16/2017 365 365 ([id number]) Encounter Details Date Type Department Care Team Description 04/11/2017 Hospital Encounter [facility] Kelly Chele Ly mphedema of both lower extremities (Primary Dx); Rehabilitation A Difficulty dressing self Services [place] [facility] [address] [place] [address] [facility] [phone] [place] [address] Social History Tobacco Use Types [...] 05/03/2021 organizations such as pentecostal groups, unions, fraSongvice or athletic groups, or school groups? How [...] machine is a Respi ronics by [employer], [employer] Star Auto A-Flex System 1. ORDER FOR [...] 1 11/1405/20/2017 MG tabletIndications: directed by INR meatcutter current use of clinic anticoagulant therapy warfarin (COUMADIN) 7.5 Take 7.5mg TTSS or 50 tablet 1 11/1405/22/2017 MG tabletIndications: as directed by INR meatcutter current use of Clinic. anticoagulant therapy documented as of this encounter Progress Notes Chele Mendoza - 04/11/2017 11:59 PM CDT 04/11/17 1100 Signing Clinician's Name / Credentials Signing clinician's name / credentials Omkar Mendoza OTR/L; CLT Session Number Session Number 04/25, 05/05 (medicare primary; BCBS secondary) Self Care Self Care Current Status, G8987 (eval/re-eval & every progress note) CJ: 20-39% impairment Current Self Care Modifier Rationale pt has built I and skills with GCB's and HEP and made good redcutions in LE lymphedema. Pt needs to build further wrapping skills and full self MLD/edema ex HEP to aid improvements in mobility and LB cares. Self Care Goal, G8988 (eval/re-eval & every progress note) CI: 1-19% impairment Adult OT Eval Goals Edema Eval Goals [...] 06/02/17 Date met 04/05/17 Manual Therapy Minutes 68 Minutes Skilled Intervention education; MLD; edmea ex's; GCB's Patient Response Pt reports adherence to home plan with GCB use; pt only intermittent with HEP for muscle pumpign and start of self MLD/edema ex's issued last week. Treatment Detail Pt presents with wraps doffed reporting blisters popped over weekend but not weeping and no concerns noted since seen last. RLE blisters popped, dry, and no redness/irritation noted insurrounding tissue. MLD to short neck, B axilla, B axillary-inguinal anastmosis established, and abdominal sequence performed. Pt educated on self axillary clearing and clearing B flanks to mobilize LEfluid through vs central abdomen which is quite congested. R hip lobule worked on an dsustained pressur eup and iunto R hip along with MLD to adajacent tissue felt edffective when pulling superior directly up lateral hip to R flank but poor when atteempting to move through inguinal region. pt educayted my have to put in sidelying as she is able to tolerate and pull fluid posterior from R hip lobule for better clearance. Pt reports trying sling idea to compress R hip lobule but hold was suboptimal and difficult for her to get. Therapist christin'd donning sheet for R hipo compression and alternative means to pamela also shown. Pt reeducated that kelly pant and pressure via garment may help physics instructor as her ability to pamela thighs is suboptimla and spica would not be feasible measn to address region. GCb's donned for pt to knee crease and POC discussed. Education Learner Patient Readiness Acceptance Method Explanation;Demonstration Response Verbalizes understanding;Needs reinforcement Plan Plan for next session cont MLD devlopment; measure at weeks end; edema ex's and self MLD check Total Session Time Timed Code Treatment Minutes 68 Total Treatment Time (sum of timed and untimed services) 68 Chele Mendoza - 04/11/2017 11:19 AM CDT Outpatient Occupational Therapy Progress Note Patient: Charlette Brush : 1945 Insurance: Payor/Plan Subscriber Name Rel Member # Group # Beginning/End Dates of Reporting Period: 03/24/17 to 04/11/2017 Referring Provider: Dr Randall Therapy Diagnosis: edema; lymphedema; wound Client Self Report: Pt expresses happiness with reductions made and skin healing since start POC. Objective Measurements:see flowsheet Outcome Measures (most recent score):LLIS to be obtained at time discharge Goals: Goal Identifier 1 Goal Description In [...] with transfers Target Date 06/02/17 Date Met Progress: Goal Identifier 1d Goal Description be [...] Progress this reporting period: Pt has made good reductions in BLE lymphedema- see flowsheet, and herskin has gone from fragile weeping skin of LLE bethea to dry, intact, non weeping skin. Pt has built skills with HEP and started self MLD and edema ex's to maximize her reductions. Pt struggling with thigh wrapping but overall better than nothing at all as pt lacks assistance at home and has body habitus that makes thigh wrapping and overall application difficult for self donning. Pt exploring options for flexitouch support at home (intermittent compression device) and plan starting to get shaped regarding compression garments pt will graduate too once reductions maximized (kelly + knee high options looking most practical and supportive for pt). Plan: Continue therapy per current plan of care. Discharge: Reason for Discharge: POC continues Equipment Issued: Discharge Plan: Patient to continue home program. documented in this encounter Miscellaneous Notes Addendum Note - Chele Mendoza - 04/11/2017 11:59 PM CDTEncounter addended by: Chele Mendoza, OT on: 04/21/2017 10:04 AM
Actions taken: Sign clinical note, Flowsheet accepted documented in this encounter Plan of Treatment Upcoming Encounters Date Type Specialty Care Team Description 11/15/2022 Virtual Visit Pharm Haylie Gonzalez, [facility] [address] [place] [address] (Wo rk) 11/15/2022 Virtual Visit IM/Peds Yane Barraza MD [address] [facility] [place] [address] (Wo rk) 03/03/2023 Virtual Visit Neurology Erlinda Barber MD [address] [facility] [address] [place] [address] (Wo rk) documented as of this encounter Visit Diagnoses Diagnosis Lymphedema of both lower extremities - P rimary Difficulty dressing self documented in this encounter Care Teams Tubing Drier Relationship Specialty Start Date End Date Lucero Stevneson MD PCP - General Pediatrics 10/11/11 04/22/19 Chastity Montero MD MD Dermatology 09/23/14 [address] [facility] [address] [place], [place] [address] Johnnie Alcocer MD Surgeon General Surgery 03/23/17 [address] [facility] [address] [place] [address] documented as of this encounter
--- OUTSIDE RECORDS SUMMARY | 2022-06-15 13:16 | XMS_ITS | Encounter Summary ---
:1945 Author Organization [facility] Address [address] [place] [address] Care Team Providers Name Role Phone Lucero Stevenson MD Primary Care Provider Chastity Montero MD Unavailable [phone] Johnnie Alcocer MD Unavailable Reason for Visit Rehab Therapy Integrated Services (Routine) - Closed Specialty Diagnoses / Procedures Referred By Contact Refer red To Contact Diagnoses MEDICARE//Lymphedema of both lower extremities M [facility] Procedures LYMPHEDEMA EVALUATION [facility]ATION [place] [address] [facility] [address] [place] [address] Phone: Fax: Referral ID Status Reason Start Date Expiration Date Visits V isits Requested Authorized EH-PT/OT/ROOFING APPRENTICE Closed 03/23/2017 07/16/2017 365 365 ([id number]) Encounter Details Date Type Department Care Team Description 04/14/[address] [facility] Kelly Chele Ly mphedema of both lower extremities (Primary Dx); Rehabilitation A Difficulty dressing self Services [place] [facility] [address] [place] [address] [facility] [phone] [place] [address] Social History Tobacco Use Types [...] 05/03/2021 organizations such as yazdanism groups, unions, fraDalradian Resources or athletic groups, or school groups? How [...] machine is a Respi ronics by [employer], [employer] Star Auto A-Flex System 1. ORDER FOR [...] 1 11/1405/20/2017 MG tabletIndications: directed by INR termination clerk current use of clinic anticoagulant therapy warfarin (COUMADIN) 7.5 Take 7.5mg TTSS or 50 tablet 1 11/1405/22/2017 MG tabletIndications: as directed by INR termination clerk current use of Clinic. anticoagulant therapy documented as of this encounter Progress Notes Chele Mendoza - 04/14/2017 11:59 PM CDT 04/14/17 0900 Signing Clinician's Name / Credentials Signing clinician's name / credentials Omkar Mendoza OTR/L; CLT Session Number Session Number 28/04, (medicare primary; BCBS secondary) Adult OT Eval [...] Intervention education; MLD' GCB's Patient Response Pt kept RLE free frpom GCB's 2/2 skin as planned. Treatment Detail Pt presents with report she did nothing with RLE regarding compression use as planned to let skin of posterior knee crease heal. RLE filled in past 24hrs and tissue harder and more girth in general noted in RLE. Pt reports self MLD and edema ex's but intermittent daily vs concentratedsessions or full on application. pt wrapped L thigh but hold continues to be struggle. Pt again has not explored flexitouch or velcro garments as asked to multiple times; these will aid overall reductions and issue with pts limitations in GCB donning 2/2 body habitus. Pt to explore and give therapist feedback by next week. MLD to short neck, abdominal sequence and past 2 sessiosn less congestion feltin abdomen and pt reports she feels MLD has helped abdominal distention and notes her legs are overall much better and lip cutter aiding mobility and transfer tasks. Fibrosis work performed on RLE and pt educated to use extra muscle pumping ex's, edema ex's, and positioning until RLE skin helaed and appropriate to start reapplying compression. GCB's donned for pt MTP-knee crease LLE as past sessions. Education Learner Patient Readiness Acceptance Method Explanation Response Verbalizes understanding Plan Plan for next session check skin; how was weekend managed; feedback on velcro/flexitouch; cont MLD and GCB use/fibrosis work Total Session Time Timed Code Treatment Minutes 58 Total Treatment Time (sum of timed and untimed services) 58 documented in this encounter Miscellaneous Notes Addendum Note - Chele Mendoza - 04/14/2017 11:59 PM CDTEncounter addended by: Cehle Mendoza, OT on: 04/21/2017 10:02 AM
Actions taken: Sign clinical note, Flowsheet accepted documented in this encounter Plan of Treatment Upcoming Encounters Date Type Specialty Care Team Description 11/15/2022 Virtual Visit Pharm D Haylie Cheung, [facility] [address] [place] [id number] (Wo rk) 11/15/2022 Virtual Visit IM/Peds Yane Barraza MD [address] [facility] [address] [facility] [address] [place] [phone] (Wo rk) 03/03/2023 Virtual Visit Neurology Erlinda Barber MD [address] [facility] [address] [place] [address] (Wo rk) documented as of this encounter Visit Diagnoses Diagnosis Lymphedema of both lower extremities - P rimary Difficulty dressing self documented in this encounter Care Teams Nitro Worker Relationship Specialty Start Date End Date Lucero Stevenson MD PCP - General Pediatrics 10/11/11 04/22/19 Chastity Montero MD MD Dermatology 09/23/14 [address] [facility] [address] [place], [place] [phone] Johnnie Alcocer MD Surgeon General Surgery 03/23/17 [address] [place] [address] documented as of this encounter
--- OUTSIDE RECORDS SUMMARY | 2022-06-15 13:16 | XMS_ITS | Encounter Summary ---
:1945 Author Organization [facility] Address [address] [place] [address] Care Team Providers Name Role Phone Lucero Stevenson MD Primary Care Provider [phone] Chastity Montero MD Unavailable [phone] Johnnie Alcocer MD Unavailable Reason for Visit Rehab Therapy Integrated Services (Routine) - Closed Specialty Diagnoses / Procedures Referred By Contact Refer red To Contact Diagnoses MEDICARE//Lymphedema of both lower extremities M [facility] Procedures LYMPHEDEMA EV[facility]ATION [facility] [place] [address] [facility] [address] [place] [address] Phone: Fax: Referral ID Status Reason Start Date Expiration Date Visits V isits Requested Authorized EH-PT/OT/SCHOOL GUARD Closed 03/23/2017 07/16/2017 365 365 ([id number]) Encounter Details Date Type Department Care Team Description 03/30/2017 Hospital Encounter [facility] Kelly Chele Ly mphedema of both lower extremities (Primary Dx); Rehabilitation A Difficulty dressing self Services [place] [facility] [address] [place] [address] [facility] [phone] [place] [address] Social History Tobacco Use Types [...] 05/03/2021 organizations such as shinto groups, unions, fraBuzzMob or athletic groups, or school groups? How [...] machine is a Respi ronics by [employer], [employer] Star Auto A-Flex System 1. ORDER FOR [...] 1 11/1405/20/2017 MG tabletIndications: directed by INR regional intermodal truck driver current use of clinic anticoagulant therapy warfarin (COUMADIN) 7.5 Take 7.5mg TTSS or 50 tablet 1 11/1405/22/2017 MG tabletIndications: as directed by INR regional intermodal truck driver current use of Clinic. anticoagulant therapy documented as of this encounter Progress Notes Chele Mnedoza - 03/30/2017 11:59 PM CDT 03/30/17 1000 Signing Clinician's Name / Credentials Signing clinician's name / credentials Omkar Mendoza OTR/L; CLT Session Number Session Number 10/24, 11/03 (medicare primary; BCBS secondary) Adult OT Eval [...] dressing Target date 06/02/17 Manual Therapy Minutes 72 Minutes Skilled Intervention education; GCB's Patient Response Pt reports good hold lower leg wrapping. pt reports trial of thigh wrapping to L thigh and terrible hold and didn't attempt R thigh. Treatment Detail Pt presents with wraps doffed as planned. Therapist quickly re- wrapped/demo'd lowerleg wrapping to RLE. Pt practiced donning lower leg wraps on LLE. Therapist did toe wraps and pt donned stockinette, guaze, foam (2), lamberto sandle, HAS, and 3-10cm spiral ankle-knee. She needed guidance and corrections but overall did well donning. Plan may change to omit HAS and use quick wrap/spiralwrap 2/2 pts back starined and difficult to pamela. Therapist wrapped LLE to see what supplies and amount layering needed. 3 15cm foam rolls knee-hip and 10 meter length 12cm width GCB donned and able tocover region. Pt educated to empohaise aggressive firm pull with foam and direct lobule of medial thi gh/knee up and inward towards leg for best containment and to deter weight onto lower leg wraps. Thigh wraps removed as pt cannot ambulate with donned and plan to continue lower elg wrapping ed and getpt up and running with thighs for weekend use. Education Learner Patient Readiness Acceptance Method Explanation;Demonstration Response Verbalizes understanding;Demonstrates understanding;Needs reinforcement Plan Plan for next session cont donning ed; set weekend POC Total Session Time Timed Code Treatment Minutes 72 Total Treatment Time (sum of timed and untimed services) 72 documented in this encounter Miscellaneous Notes Addendum Note - Chele Mendoza - 03/30/2017 11:59 PM CDTEncounter addended by: Chele Mendoza, OT on: 04/21/2017 10:08 AM
Actions taken: Sign clinical note, Flowsheet accepted documented in this encounter Plan of Treatment Upcoming Encounters Date Type Specialty Care Team Description 11/15/2022 Virtual Visit Pharm Haylie Gonzalez, [facility] [address] [place], [place] [phone] (Wo rk) 11/15/2022 Virtual Visit IM/Peds Yane Barraza MD [address] [place] [phone] (Wo rk) 03/03/2023 Virtual Visit Neurology Erlinda Barber MD [address] [facility] [address] [place], [place] [address] (Wo rk) documented as of this encounter Visit Diagnoses Diagnosis Lymphedema of both lower extremities - P rimary Difficulty dressing self documented in this encounter Care Teams Detective Homicide Squad Relationship Specialty Start Date End Date Lucero Stevenson MD PCP - General Pediatrics 10/11/11 04/22/19 Chastity Montero MD MD Dermatology 09/23/14 [address] [facility] [address] [place], [place] [phone] Johnnie Alcocer MD Surgeon General Surgery 03/23/[address] [place], [place] [phone] documented as of this encounter
--- OUTSIDE RECORDS SUMMARY | 2022-06-15 13:16 | XMS_ITS | Encounter Summary ---
:1945 Author Organization [facility] Address [address] [place] [address] Care Team Providers Name Role Phone Lucero Stevenson MD Primary Care Provider [phone] Chastity Montero MD Unavailable [phone] Johnnie Alcocer MD Unavailable Reason for Visit Rehab Therapy Integrated Services (Routine) - Closed Specialty Diagnoses / Procedures Referred By Contact Refer red To Contact Diagnoses MEDICARE//Lymphedema of both lower extremities M [facility] Procedures LYMPHEDEMA EVALUATION [facility] [place] [address] [facility] [address] [place] [address] Phone: Fax: Referral ID Status Reason Start Date Expiration Date Visits V isits Requested Authorized EH-PT/OT/SHIFTMAN Closed 03/23/2017 07/16/2017 365 365 ([id number]) Encounter Details Date Type Department Care Team Description 04/18/2017 Hospital Encounter [facility] Kelly Chele Ly mphedema of both lower extremities (Primary Dx); Rehabilitation A Difficulty dressing self Services [place] [facility] [address] [place] [address] [facility] [phone] [place] [address] Social History Tobacco Use Types [...] 05/03/2021 organizations such as pentecostalism groups, unions, fraCyto Wave Technologies or athletic groups, or school groups? [...] machine is a Respi ronics by [employer], [employer] Star Auto A-Flex System 1. ORDER FOR [...] 1 11/1405/20/2017 MG tabletIndications: directed by INR moth exterminator current use of clinic anticoagulant therapy warfarin (COUMADIN) 7.5 Take 7.5mg TTSS or 50 tablet 1 11/1405/22/2017 MG tabletIndications: as directed by INR moth exterminator current use of Clinic. anticoagulant therapy documented as of this encounter Progress Notes Chele Mendoza - 04/18/2017 11:59 PM CDT 04/18/17 0900 Signing Clinician's Name / Credentials Signing clinician's name / credentials Omkar Mendoza OTR/L; CLT Session Number Session Number 29/04, (medicare primary; BCBS secondary) Adult OT Eval [...] 06/02/17 Date met 04/05/17 Manual Therapy Minutes 62 Minutes Skilled Intervention education; MLD' GCB's Patient Response Pt reports keeping RLE free from GCB's until Friday 08/18 skin issue in posteriro knee. Pt reports E/O night thigh wrapping, switiching from one side to other. Treatment Detail Pts skin healing discussed and posterior knee crease of RLE still red but reduced and less fragile looking. Pt has wrapped past 2 days per her report and skin staying healthy. POC discussed and pt was able to get infor from insurance provider and she gets 8 garments per/year. velcro units for thighs and night time use discussed for reductions and aid pt limitatiosn in thigh wrapping;pt can alwats wrap lower legs herself as well but velcro may provide time management appeal and lesslabout for nighttime routine. Pt sounds like she'll explore zipper knee high custom compression stockings and kelly pant for hips and thighs. Pt also contacted flexitouch and delay in their ability to come meet pt and fit for devive/trial device for use in home. MLD to abdominal sequence, inguinal LN clearing, and fibrosis work applied to BLE from ankle-knee crease to soften tissue/ deeper red color noted at LLE healing skin of anterior bethea and some new peteciae noted posterior LLE-pt staes not irritated but senses some differneces in this region. GCB's donned to knee crease. Plan to measure and see how MLD servving thighs with suboptimal thigh wrapping at home. Pt reports using her selfMLD and edema ex's along with muscle pumping ex's daily. Abdomen continues to feel less congested and hoefully providing less restrictions for LE fluid mobilization thoguh torso. Education Learner Patient Readiness Acceptance Method Explanation;Demonstration Response Verbalizes understanding Plan Plan for next session monito skin; cont MLD; measure Thurs; re-wrap Total Session Time Timed Code Treatment Minutes 62 Total Treatment Time (sum of timed and untimed services) 62 documented in this encounter Miscellaneous Notes Addendum Note - Chele Mendoza - 04/18/2017 11:59 PM CDTEncounter addended by: Chele Mendoza OT on: 04/21/2017 10:01 AM
Actions taken: Sign clinical note, Flowsheet accepted Addendum Note - Chele Mendoza - 04/18/2017 9:49 AM CDTEncounter addended by: Chele Mendoza OT on: 04/18/2017 9:49 AM
Actions taken: Charge Capture section accepted documented in this encounter Plan of Treatment Upcoming Encounters Date Type Specialty Care Team Description 11/15/2022 Virtual Visit Pharm D Haylie Cheung, [facility] [address] [facility] [place] [address] (Lena max) 11/15/2022 Virtual Visit IM/PedYane Muir MD [address] [facility] [place] [address] (Lena max) 03/03/2023 Virtual Visit Neurology Erlinda Barber MD [address] [facility] [address] [place] [address] (Wo rk) documented as of this encounter Visit Diagnoses Diagnosis Lymphedema of both lower extremities - P rimary Difficulty dressing self documented in this encounter Care Teams Coil Tier Relationship Specialty Start Date End Date Lucero Stevenson MD PCP - General Pediatrics 10/11/11 04/22/19 Chastity Montero MD MD Dermatology 09/23/[address] [place] [address] 98 [place], [place] [address] Johnnie Alcocer MD Surgeon General Surgery 03/23/17 [address] [facility] [address] [place], [place] [address] documented as of this encounter
--- OUTSIDE RECORDS SUMMARY | 2022-06-15 13:16 | XMS_ITS | Encounter Summary ---
:1945 Author Organization [facility] Address [address] [place] [address] Care Team Providers Name Role Phone Lucero Stevenson MD Primary Care Provider [phone] Chastity Montero MD Unavailable [phone] Johnnie Alcocer MD Unavailable Reason for Visit Rehab Therapy Integrated Services (Routine) - Closed Specialty Diagnoses / Procedures Referred By Contact Refer red To Contact Diagnoses MEDICARE//Lymphedema of both lower extremities M [facility] Procedures LYMPHEDEMA EVALUATION [facility]HABILITATION [place] [address] [facility] [address] [place] [address] Phone: Fax: Referral ID Status Reason Start Date Expiration Date Visits V isits Requested Authorized EH-PT/OT/VENTILATION EQUIPMENT TENDER Closed 03/23/2017 07/16/2017 365 365 ([id number]) Encounter Details Date Type Department Care Team Description 04/12/2017 Hospital Encounter [facility] Kelly Chele Ly mphedema of both lower extremities (Primary Dx); Rehabilitation A Difficulty dressing self Services [place] [facility] [address] [place] [address] [facility] [phone] [place] [address] Social History Tobacco Use Types [...] organizations such as oriental orthodox groups, unions, fraJuristat or athletic groups, or school groups? How [...] machine is a Respi ronics by [employer], [employer] Star Auto A-Flex System 1. ORDER FOR [...] 1 11/1405/20/2017 MG tabletIndications: directed by INR salvage determiner current use of clinic anticoagulant therapy warfarin (COUMADIN) 7.5 Take 7.5mg TTSS or 50 tablet 1 11/1405/22/2017 MG tabletIndications: as directed by INR salvage determiner current use of Clinic. anticoagulant therapy documented as of this encounter Progress Notes Chele Mendoza - 04/12/2017 11:59 PM CDT 04/12/17 0900 Signing Clinician's Name / Credentials Signing clinician's name / credentials Omkar Mendoza OTR/L; CLT Session Number Session Number 04/26, 06/05 (medicare primary; BCBS secondary) Adult OT Eval [...] 06/02/17 Date met 04/05/17 Manual Therapy Minutes 61 Minutes Skilled Intervention education; MLD; edmea ex's; GCB's Patient Response No issue sreported past 24hrs Treatment Detail Blisters assessed and contineu to look red in broken skin region but no redness/pink look surrounding and dry for most part. MLD to short neck, B axilla, abdominal sequence, B axillary-inguinal anastomosis established and fluid shed from central abdomen to B axilla. R hipo lobule difficult to reduce and appears might be because of pts constant and persisatnt positioning of either sitting or supine in bed, pocketing from obstruction through saccrla and posterior hip regions. Pt askedto explore sidelying positions at home with emphasis to her R side to see if change in posiiton and pressure into hip can reduce r hip lobule. Fibrosis techniques used in lower legs and around R knee 2/ 2 dense fibrotic tissue. Open skin redressed and GCB donned as previous days to knee crease. Education Learner Patient Readiness Acceptance Method Explanation;Demonstration Response Verbalizes understanding;Needs reinforcement Plan Plan for next session cont MLD devlopment; measure at weeks end; edema ex's and self MLD check Total Session Time Timed Code Treatment Minutes 61 Total Treatment Time (sum of timed and untimed services) 61 documented in this encounter Miscellaneous Notes Addendum Note - Chele Mendoza - 04/12/2017 11:59 PM CDTEncounter addended by: Chele Mendoza, OT on: 04/21/2017 10:03 AM
Actions taken: Sign clinical note, Flowsheet accepted documented in this encounter Plan of Treatment Upcoming Encounters Date Type Specialty Care Team Description 11/15/2022 Virtual Visit Pharm Haylie Gonzalez, [facility] [address] [facility] [address] [place], [place] [phone] (Wo rk) 11/15/2022 Virtual Visit IM/Peds Yane Barraza MD [address] [facility] [address] [place], [place] [phone] (Wo rk) 03/03/2023 Virtual Visit Neurology Erlinda Barber MD [address] [facility] [address] [place], [place] [address] (Wo rk) documented as of this encounter Visit Diagnoses Diagnosis Lymphedema of both lower extremities - P rimary Difficulty dressing self documented in this encounter Care Teams Animal Attendants And Trainers Relationship Specialty Start Date End Date Lucero Stevenson MD PCP - General Pediatrics 10/11/11 04/22/19 Chastity Montero MD MD Dermatology 09/23/14 [address] [facility] [address] [place], [place] [address] Johnnie Alcocer MD Surgeon General Surgery 03/23/[address] [place], [place] [phone] documented as of this encounter
--- OUTSIDE RECORDS SUMMARY | 2022-06-15 13:16 | XMS_ITS | Encounter Summary ---
:1945 Author Organization [place] Address [address] [place] [address] Care Team Providers Name Role Phone Lucero Stevenson MD Primary Care Provider [phone] Chastity Montero MD Unavailable [phone] Johnnie Alcocer MD Unavailable Reason for Visit Rehab Therapy Integrated Services (Routine) - Closed Specialty Diagnoses / Procedures Referred By Contact Refer red To Contact Diagnoses MEDICARE//Lymphedema of both lower extremities M [facility] Procedures LYMPHEDEMA EVALUATION [facility] [place] [address] [facility] [address] [place] [address] Phone: Fax: Referral ID Status Reason Start Date Expiration Date Visits V isits Requested Authorized EH-PT/OT/OFFICE CLERK ASSISTANT Closed 03/23/2017 07/16/2017 365 365 ([id number]) Encounter Details Date Type Department Care Team Description 04/06/2017 Hospital Encounter [facility] Kelly Chele Ly mphedema of both lower extremities (Primary Dx); Rehabilitation A Difficulty dressing self Services [place] [facility] [address] [facility] [address] [place] [address] [facility] [phone] [place] [address] Social History Tobacco Use [...] 05/03/2021 organizations such as zoroastrianism groups, unions, fraDigitwhiz or athletic groups, or school groups? How [...] machine is a Respi ronics by [employer], Machine [employer]ang[employer] Star Auto A-Flex System 1. ORDER FOR [...] this encounter Progress Notes Chele Mendoza - 04/06/2017 11:59 PM CDT 04/06/17 1200 Signing Clinician's Name / Credentials Signing clinician's name / credentials Omkar Mendoza OTR/L; CLT Session Number Session Number 02/23, 03/05 (medicare primary; BCBS secondary) Adult OT Eval [...] Therapy Minutes 70 Minutes Skilled Intervention education; GCB's Patient Response Pt reports blisters defalted and not fluid filled when GCB removed and fille dout heavily with a bit of blood tinge to it within 30 minutes GCB's removed. Treatment Detail Pt presents with wraps doffed as planned and pt reports blisters were deflated uponremoval of GCB but filled out within 30 minutes GCB doffed and had blood tinge look to them. Pt reports no sensation of rubbing or irritation in region. Blisters still roofed but more full/slightyl larger volume being held in them and do have a slight blood tinge to them. Plan to continue to monitor and avoid popping to avoid open skin/poor skin healing/increase chances infection. Therapist re-wrapped BLE to knee and pt practiced thigh wrapping and received feedback. She knows the sequence and starting/ending poitns for materials but body shape and habitus making application difficult. Pt needs more tension throughout knee-hip region with foam but again is limited ,mainly by leg girth and posiitonshe needs to be in to apply. Pt given check off for wrapping as she basically is getting as good as she can with no assistamnce at home, and she feels her hold is improving a bit each time she tries. Laundering wraps and POC next 24hrs discussed. Education Learner Patient Readiness Acceptance Method Explanation;Demonstration Response Verbalizes understanding;Demonstrates understanding;Needs reinforcement Plan Plan for next session edema ex's; start MLD; re-wrap Total Session Time Timed Code Treatment Minutes 70 Total Treatment Time (sum of timed and untimed services) 70 documented in this encounter Miscellaneous Notes Addendum Note - Chele Mendoza - 04/06/2017 11:59 PM CDTEncounter addended by: Chele Mendoza, OT on: 04/21/2017 10:06 AM
Actions taken: Sign clinical note, Flowsheet accepted documented in this encounter Plan of Treatment Upcoming Encounters Date Type Specialty Care Team Description 11/15/2022 Virtual Visit Pharm Haylie Gonzalez [facility] [address] [place] [phone] (Wo rk) 11/15/2022 Virtual Visit IM/Peds Yane Barraza MD [address] [facility] [address] [facility] [address] [place] [phone] (Wo rk) 03/03/2023 Virtual Visit Neurology Erlinda Barber MD [address] [facility] 295 [place], [place] [address] (Wo rk) documented as of this encounter Visit Diagnoses Diagnosis Lymphedema of both lower extremities - P rimary Difficulty dressing self documented in this encounter Care Teams Promotions Producer Relationship Specialty Start Date End Date Lucero Stevenson MD PCP - General Pediatrics 10/11/11 04/22/19 Chastity Montero MD MD Dermatology 09/23/14 [address] [facility] 98 [place], [place] [address] Johnnie Alcocer MD Surgeon General Surgery 03/23/17 [address] [place] [address] documented as of this encounter
--- OUTSIDE RECORDS SUMMARY | 2022-06-15 13:16 | XMS_ITS | Encounter Summary ---
:1945 Author Organization [place] Address [address] [place] [address] Care Team Providers Name Role Phone Lucero Stevenson MD Primary Care Provider [phone] Chastity Montero MD Unavailable [phone] Johnnie Alcocer MD Unavailable Reason for Visit Rehab Therapy Integrated Services (Routine) - Closed Specialty Diagnoses / Procedures Referred By Contact Refer red To Contact Diagnoses MEDICARE//Lymphedema of both lower extremities M [facility] Procedures LYMPHEDEMA EVALUATION RE[facility]AB[facility]ITATION [place] [address] [facility] [address] [place] [address] Phone: Fax: Referral ID Status Reason Start Date Expiration Date Visits V isits Requested Authorized EH-PT/OT/CONTINUOUS PILLOWCASE CUTTER Closed 03/23/2017 07/16/2017 365 365 ([id number]) Encounter Details Date Type Department Care Team Description 04/20/2017 Hospital Encounter [facility] Kelly Chele Ly mphedema of both lower extremities (Primary Dx); Rehabilitation A Difficulty dressing self Services [place] [facility] [address] [facility] [address] [place] [address] [facility] [phone] [place] [address] Social History Tobacco Use Types [...] 05/03/2021 organizations such as episcopalian groups, unions, fraOUYA or athletic groups, or school groups? How [...] machine is a Respi ronics by [employer], [employer] Star Auto A-Flex System 1. ORDER FOR [...] 1 11/1405/20/2017 MG tabletIndications: directed by INR superintendent marine oil terminal current use of clinic anticoagulant therapy warfarin (COUMADIN) 7.5 Take 7.5mg TTSS or 50 tablet 1 11/1405/22/2017 MG tabletIndications: as directed by INR superintendent marine oil terminal current use of Clinic. anticoagulant therapy documented as of this encounter Progress Notes Chele Mendoza - 04/20/2017 11:59 PM CDT 04/20/17 1200 Signing Clinician's Name / Credentials Signing clinician's name / credentials Omkar Mendoza OTR/L; CLT Session Number Session Number 01/05, (medicare primary; BCBS secondary) Adult OT Eval [...] Therapy Minutes 70 Minutes Skilled Intervention education; measurements; GCB's Patient Response Pt reports no issue spast 24hrs Treatment Detail Pt presents with wraps donned. Wraps removed and pt reports she did wrap thighs last night. measurements to guage utility of MLD and fibrosis work along with thigh wrapping thathas been suboptimal at home. despite slipping and poor hold of GCB's in thighs at night, reductionsnoted in B thighs supporting utility of wrapping and M:LD/self MLD pt performing and receiving in clinic. Flexitouch again spoken sabout as pt may benefit from reductions device could provifde to optimize thigh wrapping and HEP/edema ex's. GCB's redonned post skin care/inspection. Education Learner Patient Readiness Acceptance Method Explanation Response Verbalizes understanding Plan Plan for next session cont MLD/fibrosis work; get fitter appt established and cont tactile contact to get appt set up for pt; re-wrap Total Session Time Timed Code Treatment Minutes 70 Total Treatment Time (sum of timed and untimed services) 70 Chele Mendoza - 04/20/2017 11:59 PM CDT 04/20/17 0900 Signing Clinician's Name / Credentials Signing clinician's name / credentials Omkar Mendoza OTR/L; CLT Discipline Discipline OT Lower Extremity Girth Measurements RT: Great Toe 8.3 cms RT: MTP's 25.6 cms RT: Arch of Foot 25.2 cms RT: Calcaneous 33.4 RT: 10 cm above heel 29.7 cms RT: 20 cm above heel 37.2 cms RT: 30 cm above heel 55.3 cms RT: 40 cm above heel 60.9 cms RT: 50 cm above heel 84.5 cms RT: 60 cm above heel 94 cms RT: 70 cm above heel 95.9 cms RT: Lower Extremity Total Volume (10cm-70cm) 12499.07 LT: Great Toe 9.2 cms LT: MTP's 25.8 cms LT: Arch of Foot 25.2 cms LT: Calcaneous 34.8 LT: 10 cm above heel 32.2 cms LT: 20 cm above heel 43.8 cms LT: 30 cm above heel 59.5 cms LT: 40 cm above heel 64 cms LT: 50 cm above heel 80.1 cms LT: 60 cm above heel 86.8 cms LT: 70 cm above heel 95.5 cms LT: Lower Extremity Total Volume (10cm-70cm) [address].38 documented in this encounter Miscellaneous Notes Addendum Note - Chele Mendoza - 04/20/2017 11:59 PM CDTEncounter addended by: Chele Mendoza OT on: 04/21/2017 10:00 AM
Actions taken: Sign clinical note, Flowsheet accepted Addendum Note - Chele Mendoza - 04/20/2017 11:59 PM CDTEncounter addended by: Chele Mendoza OT on: 04/21/2017 10:14 AM
Actions taken: Sign clinical note, Flowsheet accepted documented in this encounter Plan of Treatment Upcoming Encounters Date Type Specialty Care Team Description 11/15/2022 Virtual Visit Pharm D Haylie Cheung, [facility] [address] [facility] [place] [address] (Wo rk) 11/15/2022 Virtual Visit IM/Peds Yane Barraza MD [address] [facility] [place] [address] (Wo rk) 03/03/2023 Virtual Visit Neurology Erlinda Barber MD [address] [facility] 295 [place] [address] (Wo rk) documented as of this encounter Visit Diagnoses Diagnosis Lymphedema of both lower extremities - P rimary Difficulty dressing self documented in this encounter Care Teams Access Database Developer Relationship Specialty Start Date End Date Lucero Stevenson MD PCP - General Pediatrics 10/11/11 04/22/19 Chastity Montero MD MD Dermatology 09/23/14 [address] [facility] 98 [place] [address] Johnnie Alcocer MD Surgeon General Surgery 03/23/17 [address] [facility] 300 [place], [place] [phone] documented as of this encounter
--- OUTSIDE RECORDS SUMMARY | 2022-06-15 13:16 | XMS_ITS | Encounter Summary ---
:1945 Author Organization [place] Address [address] [place] [address] Care Team Providers Name Role Phone Lucero Stevenson MD Primary Care Provider [phone] Chastity Montero MD Unavailable [phone] Johnnie Alcocer MD Unavailable Reason for Visit Rehab Therapy Integrated Services (Routine) - Closed Specialty Diagnoses / Procedures Referred By Contact Refer red To Contact Diagnoses MEDICARE//Lymphedema of both lower extremities M [facility] Procedures LYMPHEDEMA EVALUATION REHABILITATION [place] [address] [facility] [address] [place] [address] Phone: Fax: Referral ID Status Reason Start Date Expiration Date Visits V isits Requested Authorized EH-PT/OT/HEARING AND SPEECH ASSISTANT Closed 03/23/2017 07/16/2017 365 365 ([id number]) Encounter Details Date Type Department Care Team Description 03/31/2017 Hospital Encounter [facility] Kelly Chele Ly mphedema of both lower extremities (Primary Dx); Rehabilitation A Difficulty dressing self Services [facility] [facility] [address] [facility] [address] [place] [address] [facility] [phone] [place] [address] Social History Tobacco Use Types [...] 05/03/2021 organizations such as sabianism groups, unions, fraJuno Therapeutics or athletic groups, or school groups? How [...] machine is a Respi ronics by [employer], [employer] Star Auto A-Flex System 1. ORDER FOR [...] 1 11/1405/20/2017 MG tabletIndications: directed by INR supervisor 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s current use of clinic anticoagulant therapy warfarin (COUMADIN) 7.5 Take 7.5mg TTSS or 50 tablet 1 11/1405/22/2017 MG tabletIndications: as directed by INR supervisor 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s current use of Clinic. anticoagulant therapy documented as of this encounter Progress Notes Chele Mendoza - 03/31/2017 11:59 PM CDT 03/31/17 1100 Signing Clinician's Name / Credentials Signing clinician's name / credentials Omkar Mendoza OTR/L; CLT Session Number Session Number 11/23, 12/03 (medicare primary; BCBS secondary) Adult OT Eval [...] Intervention education; GCB's Patient Response Pt reports getting L thigh wrapped and stayed in place based off yesterdays demo via therapist. Treatment Detail Pt presents with wraps doffed and reports LLE itchy today. LLE appears slightly pink but no warmth, pain, or other sympoms reported/noted. Weeping minimal from one very small region ofopen skin. Open skin appearing to heal well. Pt able to pamela lower leg portion wraps with therapist guidance showing improvements in tension, memory of materials/sequence to pamela, and overall application of patterns. Therapist still wrapped toes for her and change made fro HAS to spiral wrap MTP-anklefor pt flexibility issues/avoid LBP flare. Therpaist donned RLE to knee and then donned layers to R thigh to ensure materials will cover and contain region. 3 15cm foam rolls, 1-12cm width/10 meter length donned and contains region well; therapist verbally educated on how to use contour and creases inleg to aid hold vs deter hold. R thigh removed and pt to pamela each night. Calf pumps and ankle circles discussed for muscle pumping ex's. Weekend plan set to keep donned daily and pamela thighs at night.Laundering instructions provided. Education Learner Patient Readiness Acceptance Method Explanation;Demonstration Response Verbalizes understanding;Demonstrates understanding;Needs reinforcement Plan Plan for next session see how weekend managed; have pt demo thigh wrapping and practice; ex's; measurements; start MLD as able Total Session Time Timed Code Treatment Minutes 74 Total Treatment Time (sum of timed and untimed services) 74 documented in this encounter Miscellaneous Notes Addendum Note - Chele Mendoza - 03/31/2017 11:59 PM CDTEncounter addended by: Chele Mendoza, OT on: 04/21/2017 10:08 AM
Actions taken: Sign clinical note, Flowsheet accepted documented in this encounter Plan of Treatment Upcoming Encounters Date Type Specialty Care Team Description 11/15/2022 Virtual Visit Pharm Haylie Gonzalez, [facility] [address] [facility] [address] [place], [place] [phone] (Wo rk) 11/15/2022 Virtual Visit IM/Peds Yane Barraza MD [address] [facility] [address] [place], [place] [phone] (Wo rk) 03/03/2023 Virtual Visit Neurology Erlinda Barber MD 420 [facility] 295 [place], [place] [address] (Wo rk) documented as of this encounter Visit Diagnoses Diagnosis Lymphedema of both lower extremities - P rimary Difficulty dressing self documented in this encounter Care Teams Community Educator Relationship Specialty Start Date End Date Lucero Stevenson MD PCP - General Pediatrics 10/11/11 04/22/19 Chastity Montero MD MD Dermatology 09/23/14 420 [facility] 98 [place], [place] [phone] Johnnie Alcocer MD Surgeon General Surgery 03/23/17 [address] [facility] 300 [place] [address] documented as of this encounter
--- OUTSIDE RECORDS SUMMARY | 2022-06-15 13:17 | XMS_ITS | Encounter Summary ---
:1945 Author Organization [place] Address [address] [place] [address] Care Team Providers Name Role Phone Lucero Stevenson MD Primary Care Provider Chastity Montero MD Unavailable [phone] Encounter Details Date Type Department Care Team Description 08/29/[address] [facility] Pulmonary embolism Visit Clinic [place] and infarction (H) [address] [facility] [address] [place] [...] encounter Progress Notes Qing Guy RN - 08/29/2016 11:16 AM CST ANTICOAGULATION FOLLOW-UP CLINIC VISIT Patient Name: Charlette Brush Date: 08/29/2016 Contact Type: Face to Face SUBJECTIVE: Patient Findings Positives No Problem Findings OBJECTIVE INR Protime Date Value Ref Range Status 08/29/2016 2.2 (A) 0.86 - 1.14 Final ASSESSMENT / PLAN INR assessment THER Recheck INR In: 4 WEEKS INR Location Clinic Anticoagulation Summary as of 08/29/2016 INR goal 2.0-3.0 Today's INR 2.2 Maintenance plan 10 mg (10 mg x 1) on Mon, Fri; 7.5 mg (7.5 mg x 1) all other days Full instructions 10 mg on Mon, Fri; 7.5 mg all other days Weekly total 57.5 mg No change documented Qing Guy RN Plan last modified Qing Guy RN (06/20/2016) Next INR check 09/26/2016 Target end date Indefinite Indications 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] Anticoagulation Episode Summary INR check location Coumadin Clinic Preferred lab Send INR reminders to [facility] Comments 7.5mg & 10mg tabs - devaughn dose // APPT CARD ONLY Anticoagulation Care Providers Provider Role Specialty Phone number Lucero Stevenson MD Pediatrics [phone] See the Encounter Report to view Anticoagulation Flowsheet and Dosing Calendar (Go to Encounters tabin chart review, and find the Anticoagulation Therapy Visit) Qing Guy RN NURSE documented in this encounter Plan of Treatment Upcoming Encounters Date Type Specialty Care Team Description 11/15/2022 Virtual Visit Pharm Hayile Gonzalez, [facility] [address] [facility] [place] [address] ([place]) 11/15/2022 Virtual Visit [place] [address] [place] [address] [place] [address] (Lena max) 03/03/2023 Virtual Visit Neurology Erlinda Barber MD 420 [facility] 295 [place] [address] (Wo rk) documented as of this encounter Procedures Procedure Name Priority Date/Time Associated Diagnosis Comme nts INR POINT OF CARE Routine 08/29/2016 Pulmonary embolism and Results for this infarction (H) procedure are in the results section . documented in this encounter Results (ABNORMAL) INR point of care (08/29/2016) athologist Signature INR Point of 2.2 (A) 0.86 - [facility] 1.14 [facility] Specimen (Source) Anatomical Location Collection Method / Collectio n Time Received Time / Laterality Volume 08/29/2016 Lucero Stevenson MD LAB - BLOOD ORDERABLES Performing Organization Address City/State/ZIP Code Phon e Number [facility] [address] [place] [address] documented in this encounter Visit Diagnoses Diagnosis Pulmonary embolism and infarction (H) documented in this encounter Care Teams Vibrator Operator Relationship Specialty Start Date End Date Lucero Stevenson MD PCP - General Pediatrics 10/11/11 04/22/19 Chastity Montero MD MD Dermatology 09/23/14 420 [facility] 98 [place] [address] documented as of this encounter
--- OUTSIDE RECORDS SUMMARY | 2022-06-15 13:17 | XMS_ITS | Encounter Summary ---
:1945 Author Organization [place] Address [address] [place] [address] Care Team Providers Name Role Phone Lucero Stevenson MD Primary Care Provider [phone] Chastity Montero MD Unavailable [phone] Reason for Visit Reason Onset Date Comments Refill Request 12/24/2016 triamterene-hydrochl orothiazide Encounter Details Date Type Department Care Team Description 12/24/2016 Refill [facility] Lucero Stevensoni ll Request Clinic [place] Littlejohn MD (triamterene-hydrochlor [address] [facility] Y othiazide) [facility] [address] [place] [address] [address] [place] [address] [place] [address] [phone] Social History Tobacco Use Types Packs/Day Years [...] this encounter Miscellaneous Notes Telephone Encounter - Kendall Kwan - 12/24/2016 10:46 AM CDT Pending Prescriptions: Disp Refills triamterene-hydrochlorothiazide (DYAZIDE)*90 cap*3 Sig: Take 1 capsule by mouth every morning Last Written Prescription Date: 01/01/2016 Last Fill Quantity: 90, # refills: 3 Last Office Visit with [facility], [facility] or [facility] prescribing provider: 01/01/2016 Next 5 appointments (look out 90 days) Jan 03, 2017 11:00 AM CDT PHYSICAL with Lucero Stevenson MD [facility] ([facility]) [address] [place] [address] Potassium Date Value Ref Range Status 01/01/2016 3.9 3.4 - 5.3 mmol/L Final Creatinine Date Value Ref Range Status 01/01/2016 0.61 0.52 - 1.04 mg/dL Final BP Readings from Last 3 Encounters: 01/22/16 149/66 01/04/16 152/81 01/01/16 120/78 Kendall Kwan XRT documented in this encounter Plan of Treatment Upcoming Encounters Date Type Specialty Care Team Description 11/15/2022 Virtual Visit Pharm D Haylie Cheung, [facility] [address] [facility] [place] [address] (Lena max) 11/15/2022 Virtual Visit [place] [address] [place] [address] [place] [address] (Lena max) 03/03/2023 Virtual Visit Neurology Erlinda Babrer MD 420 [facility] 295 [place] [address] (Lena max) documented as of this encounter Visit Diagnoses Diagnosis Essential hypertension, benign documented in this encounter Care Teams Taxicab Starter Relationship Specialty Start Date End Date Lucero Stevenson MD PCP - General Pediatrics 10/11/11 04/22/19 Chastity Montero MD MD Dermatology 09/23/[address] [place] [address] documented as of this encounter
--- OUTSIDE RECORDS SUMMARY | 2022-06-15 13:17 | XMS_ITS | Encounter Summary ---
:1945 Author Organization [place] Address [address] [place] [address] Care Team Providers Name Role Phone Lucero Stevenson MD Primary Care Provider [phone] Chastity Montero MD Unavailable [phone] Reason for Visit Reason Comments Medication Refill Encounter Details Date Type Department Care Team Description 11/24/2016 Refill [facility] Stefanie Stevenson Medication Refill [place] MD [address] [place] [address] [place] [address] [phone] Social History Tobacco Use Types Packs/Day Years [...] this encounter Miscellaneous Notes Telephone Encounter - Jennifer Luis RN - 11/25/2016 1:49 PM CDT These were filled yesterday in another encounter. 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
--- OUTSIDE RECORDS SUMMARY | 2022-06-15 13:17 | XMS_ITS | Encounter Summary ---
:1945 Author Organization [place] Address [address] [place] [address] Care Team Providers Name Role Phone Lucero Stevenson MD Primary Care Provider [phone] Chastity Montero MD Unavailable Reason for Visit Reason Comments CPAP Follow Up Follow up ceferino Encounter Details Date Type Department Care Team Description 01/20/2017 Office Visit [facility] Osmar Kidd MD CEFERINO (obstructive sleep [facility] [address] apnea) (Primary Dx) [address] [address] [place] [address] [place] [address] (Work) [phone] Social History Tobacco Use Types Packs/Day Years [...] Sign Reading Time Taken Comments Blood Pressure 145/73 01/20/2017 11:22 AM CDT Pulse 62 01/20/2017 11:22 AM CDT Temperature 36.6 ??C (97.9 ??F) 01/20/2017 11:22 AM CDT Respiratory Rate - - Oxygen Saturation 94% 01/20/2017 11:22 AM CDT Inhaled Oxygen Concentration - - Weight 184.2 kg (406 lb) 01/20/2017 11:22 AM CDT Height 167.6 cm (5' 5.98) 01/20/2017 11:22 AM CDT Body Mass Index 65.56 01/20/2017 11:22 AM CDT documented in this encounter Patient Instructions Patient InstructionsVandana Escobedo - 01/20/2017 11:30 AM CDT Your BMI is Body mass index is 65.56 kg/(m^2). Weight management is a personal decision. If [...] is considered obese. More than two-thirds of [place] adults are considered overweight or obese. Being [...] to discuss a diet and exercise plan. Your Body mass index is 65.56 kg/(m^2). Weight management is a personal decision. If [...] is considered obese. More than two-thirds of [place] adults are considered overweight or obese. Being [...] plan. documented in this encounter Progress Notes Osmar Kidd MD - 01/20/2017 11:30 AM CDT Obstructive Sleep Apnea - PAP Follow-Up Visit: Chief Complaint Patient presents with ??? CPAP Follow Up Follow up ceferino Charlette Brush comes in today for follow-up of their severe sleep apnea, managed with CPAP. Her sleep study from 12/08/2011 showed an apnea-hypopnea index of 45.6 per hour and RDI of 74.8 per hour. Overall, she rates the experience with PAP as 10 (0 poor, 10 great). The mask is comfortable. The mask is not leaking. She is not snoring with the mask on. She is not having gasp arousals. She is not having significant oral/nasal dryness. The pressure settings are comfortable. Bedtime is typically midnight. Usually it takes about 15 minutes to fall asleep with the mask on. Wake time is typically 9 am. Patient is using PAP therapy 7-8 hours per night. The patient is usually getting 8 hours of sleep per night. She does feel rested in the morning. Total score - [place]: 1 (01/20/2017 11:00 AM) CPAP 11 cmH2O download: total days of use. 0 nonuse days. 100% days with >4 hours use. Average use 7 hours 24 minutes per day. AHI 0.3. Reviewed by team: Allergies Meds Reviewed by provider: Problem List: Patient Active Problem List Diagnosis Date Noted ??? Essential hypertension, benign 07/30/2003 Priority: High ??? Morbid obesity (H) 07/30/2003 Priority: High ??? Pulmonary embolism and infarction (H) 11/20/2001 Priority: High Was on HRT at time PE. Has history of recurrent pe (second when subtherapeutic on coumadin about 2 months after first); however patient states hospital physician during that hospitalization told her she did not have second PE. Trying to obtain records. Problem list name updated by automated process. Provider to review ??? Pre-diabetes 11/23/2011 Priority: Medium ??? CEFERINO (obstructive sleep apnea) 09/05/2005 Priority: Medium Severe; on CPAP ??? Vitamin D deficiency 11/23/2011 Priority: Low (Problem list name updated by automated process. Provider to review and confirm.) ??? Eczema 10/06/2011 Priority: Low Derm at [facility] ??? Binge eating 07/10/2011 Priority: Low ??? Health F[facility] 01/21/2011 Priority: Low EMERGENCY CARE PLAN Presenting Problem Signs and Symptoms Treatment Plan Questions or conerns during clinic hours I will call the clinic directly Questions or conerns outside clinic hours I will call the 24 hour nurse line at [phone] Patient needs to schedule an appointment I will call the 24 hour scheduling team at [phone] orclinic directly Same day treatment I will call the clinic first, nurse line if after hours, urgent care and expresscare if needed DX V65.8 REPLACED WITH [id number] (10/22/2012) ??? Advanced directives, counseling/discussion 12/02/2010 Priority: Low Advance Directive Problem List Overview: Name Relationship Phone Primary Health Care Agent Alternative Health Care Agent Discussed advance care planning with patient; information given to patient to review. 12/02/2010 ??? Dermatitis, stasis 08/12/2010 Priority: Low ??? CARDIOVASCULAR SCREENING; LDL GOAL LESS THAN 130 08/26/2009 Priority: Low ??? Other lymphedema 11/04/2003 Priority: Low Has been lymphedema clinic x2 ??? halfway current use of anticoagulant therapy 10/29/2013 Problem list name updated by automated process. Provider to review BP 145/73 Pulse 62 Temp 97.9 ??F (36.6 ??C) (Oral) Ht 1.676 m (5' 5.98) Wt (!) 184.2 kg (406 lb) SpO2 94% BMI 65.56 kg/m2 Impression/Plan: Severe sleep apnea. Tolerating PAP well. Daytime symptoms are improved. She demonstrates regular compliance with therapyand AHI is normal on download. Plan: 1. Continue CPAP therapy with pressure setting pf 11 cm H2O Charlette Velma Brush will follow up in about 1 year(s). Fifteen minutes spent with patient, all of which were spent [id number] counseling regarding CPAP download, better sleep hygiene , consulting, coordinating plan of care. Osmar Kidd MD, MD CC: Lucero Stevenson, documented in this encounter Nursing Notes Vandana Escobedo - 01/20/2017 11:30 AM CDT Chief Complaint Patient presents with ??? CPAP Follow Up Follow up ceferino Initial BP 145/73 Pulse 62 Temp 97.9 ??F (36.6 ??C) (Oral) Ht 1.676 m (5' 5.98) Wt (!) 184.2 kg (406 lb) SpO2 94% BMI 65.56 kg/m2 Estimated body mass index is 65.56 kg/(m^2) as calculated from the following: Height as of this encounter: 1.676 m (5' 5.98). Weight as of this encounter: 184.2 kg (406 lb). Medication Reconciliation: complete ESS 08/09 Vandana Escobedo MA documented in this encounter Plan of Treatment Upcoming Encounters Date Type Specialty Care Team Description 11/15/2022 Virtual Visit Pharm D Haylie Cheung, [facility] [address] [facility] [place] [address] (Wo rk) 11/15/2022 Virtual Visit IM/Peds Yane Barraza MD [address] [facility] [place] [address] (Wo rk) 03/03/2023 Virtual Visit Neurology Erlinda Barber MD [address] [facility] [address] [place] [address] (Wo rk) documented as of this encounter Visit Diagnoses Diagnosis CEFERINO (obstructive sleep apnea) - Primary Obstructive sleep apnea (adult) (pediatr ic) documented in this encounter Care Teams Lending Advisor Relationship Specialty Start Date End Date Lucero Stevenson MD PCP - General Pediatrics 10/11/11 04/22/19 Chastity Montero MD MD Dermatology 09/23/14 [address] [facility] [address] [place] [address] documented as of this encounter
--- OUTSIDE RECORDS SUMMARY | 2022-06-15 13:17 | XMS_ITS | Encounter Summary ---
:1945 Author Organization [facility] Address [address] [place] [address] Care Team Providers Name Role Phone Lucero Stevenson MD Primary Care Provider [phone] Chastity Montero MD Unavailable [phone] Reason for Visit Reason Comments Derm Problem Charlette is here today for a ul cer follow up. Charlette notes the ucler is healed up Encounter Details Date Type Department Care Team Description 10/24/2016 Office Visit [facility] Dermatology Chastity Montero Venous stasis dermatitis of both lower extremities (Primary Dx); [address] [facility] MD Martha Allergic contact dermatitis due to other agents [address] [place] [address] [place], [place] [phone] (Wo rk) Social History Tobacco Use Types [...] as of this encounter Patient Instructions Patient InstructionsIvelisse Corrales MD - 10/24/2016 10:00 AM CDT You are doing a great job avoiding what you are allergic to! Keep it up! documented in this encounter Progress Notes Chastity Montero MD - 10/24/2016 10:00 AM CDT [facility] Dermatology Note Dermatology Problem List: 1. Nummular eczema + stasis dermatitis + lymphedema [...] cream, Elidel cream, hydrocortisonecream 1%, Balsam of [place], Euxyl K 400, and benzoyl alcohol -Doubtful reactions: Vanicream light, Ombrelle Jenni, Wal-Sporin ointment, Suave shampoo, bactrobanointment, paraben mix, benzoyl peroxide 3. Left lower back ulceration since 08/2012; has been biopsied and suggestive of trauma. Complicatedhealing due to pressure from waist bands and infections. Completely healed over 04/12/16. Encounter Date: Oct 24, 2016 CC: Chief Complaint Patient presents with ??? Derm Problem Charlette is here today for a ulcer follow up. Charlette notes the ucler is healed up History of Present Illness: Ms. Charlette Brush is a 71 year old female who presents as a follow-up for wound on lower back. Since last visit, on 04/12/16, since that time her lower back ulcers have continued to remain healed. New spots on the chest and left arm, appeared in the past few days. No symptoms. Legs have remained clear, although swollen. Not using any topicals. Was in [place] for her niece's wedding. Have not gotten cataract surgery yet. Past Medical History: Patient Active Problem List Diagnosis ??? Essential hypertension, benign ??? Pulmonary embolism and infarction (H) ??? Morbid obesity (H) ??? Other lymphedema ??? CEFERINO (obstructive sleep apnea) ??? CARDIOVASCULAR SCREENING; LDL GOAL LESS THAN 130 ??? Dermatitis, stasis ??? Advanced directives, counseling/discussion ??? Health Fci ??? Binge eating ??? Eczema ??? Pre-diabetes ??? Vitamin D deficiency ??? 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 ? TONSILLECTOMY & ADENOIDECTOMY Social History: The patient does not work. The patient denies use of tanning beds. Family History: There is a possible family history of skin cancer in her father, unclear what type. There is no family history of melanoma. Daughter with Darier's disease Medications: Current Outpatient Prescriptions Medication Sig Dispense Refill ??? warfarin (COUMADIN) 7.5 MG tablet Take 7.5mg TTSS or as directed by INR Clinic. 90 tablet 0 ??? warfarin (COUMADIN) 10 MG tablet Take 10mg MWF or as directed by INR clinic 90 tablet 1 ? ? Elastic Bandages & Supports (JOBST KNEE HIGH COMPRESSION SM) [facility] Please custom-measure for ZIPPERED knee-high compression stockings. and issue 2 each 3 ??? hydrocortisone 2.5 % ointment Daily as needed 180 g 3 ??? triamterene-hydrochlorothiazide (DYAZIDE) 37.5-25 MG per capsule Take 1 capsule by mouth every morning 90 capsule 3 ??? losartan (COZAAR) 100 MG tablet Take 1 tablet (100 mg) by mouth daily 90 tablet 3 ??? atenolol (TENORMIN) 25 MG tablet Take 1 tablet (25 mg) by mouth 2 times daily 180 tablet 3 ??? desoximetasone (TOPICORT) 0.05 % GEL Apply 1 g topically two times daily 180 g 3 ??? omeprazole (PRILOSEC) 40 MG capsule Take 1 capsule (40 mg) by mouth daily Take 30-60 minutes before a meal. 90 capsule 1 ??? ORDER FOR DME Equipment being ordered: CPAP mask Please dispense- Comfort gel blue nasal mask with HGR,DOM-Size Small Patient's machine is a Respironics by [employer], Tutor Star Auto A-Flex System 1. 1 Device 1 ??? ORDER FOR DME daily Auto-CPAP: Max 11 cm H2O, Min 11cm H2O Continuous, Lifetime need and heated humidity. 1 Device 0 ??? Cholecalciferol (VITAMIN D PO) Take 10,000 Units by mouth. ??? cetirizine (ZYRTEC) 10 MG tablet Take 10 mg by mouth daily ??? acetaminophen (TYLENOL) 325 MG tablet Take by mouth daily Allergies Allergen Reactions ??? Cephalexin Hives Keflex - hives ??? Lanolin Other (See Comments) skin irritation ??? Lisinopril Cough ??? Neomycin Other (See Comments) skin irritation ??? Penicillins Hives ??? Bactroban [Mupirocin Calcium] Rash Review of Systems: -General: Feels otherwise well, denies other skin concerns. -Skin: As per HPI, no additional concerns Physical exam: Vitals: There were no vitals taken for this visit. GEN: This is a well developed, morbidly obese female in no acute distress, in a pleasant mood. SKIN: Focused examination of the face, back, chest, upper extremities, and lower extremities was performed. -Previous ulcerations on left and central lower back are completely re- epithelized without any open areas or crusting. -eczematous 1cm papule, thin on the left medial upper arm -Changes associated with lymphedema in the lower legs. -Scattered coppery brown patches with circumferential scale on the anterior shins consistent with stasis dermatitis. Impression/Plan: 1. Traumatic ulceration L lower back, resolved ?? Discussed with patient that area appears healed at this time, so it is important to avoid trauma or pressure to the area. 2. ACD: well controlled with allergan avoidance and hydrocortisone 2.5% ointment and desoximetasone PRN for eczematous skin lesions. ?? Discussed with patient that we are unsure of what type of topical, if any, steroids will be needed after cateract surgery. ?? Has printout of what she should avoid after surgery ?? Reassured her that arm papule is eczematous, healing therefore reassured. ?? Continue to avoid allergens, emphasized sun protective clothing 3. Lymphedema + venous stasis dermatitis of the bilateral lower extremities: stable at this time. - reassured that there is no skin breakdown Follow-up in 6 months, earlier for new or changing lesions. staffed the patient. Staff Involved: Resident(Ivelisse Corrales)/Staff(as above) .I, Chastity Montero MD, saw this patient with the resident and agree with the resident???s findings and plan of care as documented in the resident???s note. documented in this encounter Nursing Notes Yancy Montero CMA - 10/24/2016 10:00 AM CDT Dermatology Rooming Note Charlette Brush's goals for this visit include: Chief Complaint Patient presents with ??? Derm Problem Charlette is here today for a ulcer follow up. Charlette notes the ucler is healed up Yancy Montero MA documented in this encounter Plan of Treatment Upcoming Encounters Date Type Specialty Care Team Description 11/15/2022 Virtual Visit Haylie Wakefield, [facility] [address] [place] [address] (Wo rk) 11/15/2022 Virtual Visit IM/Peds Yane Barraza MD [address] [facility] [place] [address] (Wo rk) 03/03/2023 Virtual Visit Neurology Erlinda Barber MD [address] [facility] [address] [place] [address] (Wo rk) documented as of this encounter Visit Diagnoses Diagnosis Venous stasis dermatitis of both lower e xtremities - Primary Allergic contact dermatitis due to other agents documented in this encounter Care Teams Ssis Architect Relationship Specialty Start Date End Date Lucero Stevenson MD PCP - General Pediatrics 10/11/11 04/22/19 Chastity Montero MD MD Dermatology 09/23/14 [address] [facility] [address] [place] [address] documented as of this encounter
--- OUTSIDE RECORDS SUMMARY | 2022-06-15 13:17 | XMS_ITS | Encounter Summary ---
:1945 Author Organization [place] Address [address] [place] [address] Care Team Providers Name Role Phone Lucero Stevenson MD Primary Care Provider [phone] Chastity Montero MD Unavailable Encounter Details Date Type Department Care Team Description 02/14/2017 Anticoagulation Therapy [facility] Pulmonary embolism Visit Clinic Yarelis and infarction (H) [address] [facility] [address] [place] [address] Social [...] encounter Progress Notes Qing Guy RN - 02/14/2017 11:08 AM CDT ANTICOAGULATION FOLLOW-UP CLINIC VISIT Patient Name: Charlette Brush Date: 02/14/2017 Contact Type: Face to Face SUBJECTIVE: Patient Findings Positives No Problem Findings OBJECTIVE INR Protime Date Value Ref Range Status 02/14/2017 2.5 (A) 0.86 - 1.14 Final ASSESSMENT / PLAN INR assessment THER Recheck INR In: 4 WEEKS INR Location Clinic Anticoagulation Summary as of 02/14/2017 INR goal 2.0-3.0 Today's INR 2.5 Maintenance plan 10 mg (10 mg x 1) on Mon, Wed, Fri; 7.5 mg (7.5 mg x 1) all other days Full instructions 10 mg on Mon, Wed, Fri; 7.5 mg all other days Weekly total 60 mg No change documented Qing Guy, CHANDLER Plan last modified Susie Murphy (09/26/2016) Next INR check 03/14/2017 Target end date Indefinite Indications 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] Anticoagulation Episode Summary INR check location Coumadin Clinic Preferred lab Send INR reminders to [facility] Comments 7.5mg & 10mg tabs - devaughn dose // APPT CARD ONLY Anticoagulation Care Providers Provider Role Specialty Phone number Lucero Stevenson MD Pediatrics [phone] See the Encounter Report to view Anticoagulation Flowsheet and Dosing Calendar (Go to Encounters tabin chart review, and find the Anticoagulation Therapy Visit) Qing Guy RN documented in this encounter Plan of Treatment Upcoming Encounters Date Type Specialty Care Team Description 11/15/2022 Virtual Visit Pharm D Haylie Cheung, [facility] [address] [facility] [place] [address] (Lena max) 11/15/2022 Virtual Visit IM/Peds Yane Barraza MD [address] [facility] [place] [address] (Lena max) 03/03/2023 Virtual Visit Neurology Erlinda Barber MD [address] [facility] [address] [place] [address] (Wo rk) documented as of this encounter Procedures Procedure Name Priority Date/Time Associated Diagnosis Comme nts INR POINT OF CARE Routine 02/14/2017 Pulmonary embolism and Results for this infarction (H) procedure are in the results section . documented in this encounter Results (ABNORMAL) INR point of care (02/14/2017) athologist Signature INR Point of 2.5 (A) 0.86 - [facility] 1.14 [facility] Specimen (Source) Anatomical Location Collection Method / Collectio n Time Received Time / Laterality Volume 02/14/2017 Lcuero Stevenson MD LAB - BLOOD ORDERABLES Performing Organization Address City/State/ZIP Code Phon e Number [facility] [address] [place] [address] documented in this encounter Visit Diagnoses Diagnosis Pulmonary embolism and infarction (H) documented in this encounter Care Teams Director Writing Relationship Specialty Start Date End Date Lucero Stevenson MD PCP - General Pediatrics 10/11/11 04/22/19 Chastity Montero MD MD Dermatology 09/23/14 [address] [facility] [address] [place] [address] documented as of this encounter
--- OUTSIDE RECORDS SUMMARY | 2022-06-15 13:17 | XMS_ITS | Encounter Summary ---
:1945 Author Organization [place] Address [address] [place] [address] Care Team Providers Name Role Phone Lucero Stevenson MD Primary Care Provider [phone] Chastity Montero MD Unavailable [phone] Reason for Visit Reason Onset Date Comments Appointment 03/01/2017 Encounter Details Date Type Department Care Team Description 03/01/2017 Telephone [facility] Dermatology Chastity Montero, Appointment [address] [facility] 3rd Floor [address] [facility] [address] [place], [place] [phone] [place] [address] (Wo rk) Social History Tobacco [...] this encounter Miscellaneous Notes Telephone Encounter - Sha Villanueva MD - 03/01/2017 2:31 PM CDT Spoke with patient regarding a new ulcer on her bethea. Signs/symptoms of cellulitis were reviewed andshe was encouraged to present to an ER should this occur. In the meantime, she will begin dilute vinegar soaks to the area. The patient does not currently have compression stockings and may benefit from this at follow up. Will arrange sooner follow up with Dr. Montero. hSa Villanueva MD Dermatology resident, PGY-4 Telephone Encounter - Cristin Corrales RN - 03/01/2017 8:30 AM CDT Patient reports sore on LLE that has been there for more than 1 week. States she picked at skin and area opened up. Describes as size of dime, redness 5 inches around, clear to yellow drainage saturating dressings. States she changes dressing every 3-4 hours for the last 4 days. Denies swelling, warmth, fever or pain. She has a f/u in April but will not be able to wait that long. She is allergic toseveral topicals, stating her wound healing time is extended. She would like to be seen by Dr Montero sooner. Will route to provider for further recommendations documented in this encounter Plan of Treatment Upcoming Encounters Date Type Specialty Care Team Description 11/15/2022 Virtual Visit Pharm D Haylie Cheung, [facility] [address] [facility] [place] [address] (Lena max) 11/15/2022 Virtual Visit IM/Peds Yane Barraza MD [address] [facility] [place] [address] (Lena max) 03/03/2023 Virtual Visit Neurology Erlinda Barber MD [address] [facility] [address] [place] [address] (Wo rk) documented as of this encounter Visit Diagnoses Not on filedocumented in this encounter Care Teams Yarn Spinner Relationship Specialty Start Date End Date Lucero Stevenson MD PCP - General Pediatrics 10/11/11 04/22/19 Chastity Montero MD MD Dermatology 09/23/14 [address] [facility] [address] [place] [address] documented as of this encounter
--- OUTSIDE RECORDS SUMMARY | 2022-06-15 13:17 | XMS_ITS | Encounter Summary ---
:1945 Author Organization [facility] Address [address] [place] [address]. [place] [address] Care Team Providers Name Role Phone Lucero Stevenson MD Primary Care Provider [phone] Chastity Montero MD Unavailable [phone] Encounter Details Date Type Department Care Team Description 09/26/2016 Anticoagulation Therapy [facility] Pulmonary embolism and infarction (H); Visit Clinic [place] longterm current use of ant icoagulant therapy [address] [facility] [address] [place] [address] [...] this encounter Progress Notes Susie Murphy - 09/26/2016 11:54 AM CDT ANTICOAGULATION FOLLOW-UP CLINIC VISIT Patient Name: Charlette Brush Date: 09/26/2016 Contact Type: Face to Face SUBJECTIVE: Patient Findings Positives Other complaints (Pt will be traveling to [place] 10-03-16 and is unsure of date of her return.Asked to call us if any bleeding prob while out of state), No Problem Findings, Unexplained INR or factor level change OBJECTIVE INR Protime Date Value Ref Range Status 09/26/2016 1.6 (A) 0.86 - 1.14 Final ASSESSMENT / PLAN INR assessment SUB Recheck INR In: 3 WEEKS INR Location Clinic Anticoagulation Summary as of 09/26/2016 INR goal 2.0-3.0 Today's INR 1.6! Maintenance plan 10 mg (10 mg x 1) on Mon, Wed, Fri; 7.5 mg (7.5 mg x 1) all other days Full instructions 09/26: 13.75 mg; Otherwise 10 mg on Mon, Wed, Fri; 7.5 mg all other days Weekly total 60 mg Plan last modified Susie Murphy (09/26/2016) Next INR check 10/17/2016 Target end date Indefinite Indications 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] Anticoagulation Episode Summary INR check location [facility] Preferred lab Send INR reminders to [facility] Comments 7.5mg & 10mg tabs - devaughn dose // APPT CARD ONLY Anticoagulation Care Providers Provider Role Specialty Phone number Lucero Stevenson MD Pediatrics [phone] See the Encounter Report to view Anticoagulation Flowsheet and Dosing Calendar (Go to Encounters tabin chart review, and find the Anticoagulation Therapy Visit) Dosage adjustment made based on physician directed care plan. Susie Murphy RN documented in this encounter Plan of Treatment Upcoming Encounters Date Type Specialty Care Team Description 11/15/2022 Virtual Visit Pharm Haylie Gonzalez, [facility] [address] [place] [address] (Wo rk) 11/15/2022 Virtual Visit IM/Peds Yane Barraza MD [address] [facility] [place] [address] (Wo rk) 03/03/2023 Virtual Visit Neurology Erlinda Barber MD [address] [facility] [address] [place] [address] (Wo rk) documented as of this encounter Procedures Procedure Name Priority Date/Time Associated Diagnosis Comme nts INR POINT OF CARE Routine 09/26/2016 Pulmonary embolism and Results for this infarction (H) procedure are in the buttermaker helper current use of res ults section. anticoagulant therapy documented in this encounter Results (ABNORMAL) INR point of care (09/26/2016) athologist Signature INR Point of 1.6 (A) 0.86 - [facility] 1.14 [facility] Specimen (Source) Anatomical Location Collection Method / Collectio n Time Received Time / Laterality Volume 09/26/2016 Lucero Stevenson MD LAB - BLOOD ORDERABLES Performing Organization Address City/State/[facility] Code Phon e Number [facility] [address] [place] [address] documented in this encounter Visit Diagnoses Diagnosis Pulmonary embolism and infarction (H) longterm current use of anticoagulant t herapy documented in this encounter Care Teams Centrex Radio Operator Relationship Specialty Start Date End Date Lucero Stevenson MD PCP - General Pediatrics 10/11/11 04/22/19 Chastity Montero MD MD Dermatology 09/23/14 [address] [facility] [address] [place], [place] [address] documented as of this encounter
--- OUTSIDE RECORDS SUMMARY | 2022-06-15 13:17 | XMS_ITS | Encounter Summary ---
:1945 Author Organization [facility] Address [address] [place] [address] Care Team Providers Name Role Phone Lucero Stevenson MD Primary Care Provider [phone] Chastity Montero MD Unavailable [phone] Encounter Details Date Type Department Care Team Description 03/14/2017 Anticoagulation Therapy [facility] Pulmonary embolism Visit Clinic [place] and infarction (H) [address] [facility] [address] [place] [address] Social [...] encounter Progress Notes Qing Guy RN - 03/14/2017 7:46 PM CDT ANTICOAGULATION FOLLOW-UP CLINIC VISIT Patient Name: Charlette Brush Date: 03/14/2017 Contact Type: Face to Face SUBJECTIVE: Patient Findings Positives Other complaints Comments Has open area on left lower leg. Scratched open the area about 4 weeks ago. Area started at approximately 1/2 cm and now is 1.5 cm and draining clear yellow fluid. She can't get into dermatology at the [facility] until 03/27/17. Scheduled appointment for her today with Dr. Stevenson. OBJECTIVE INR Protime Date Value Ref Range Status 03/14/2017 2.5 (A) 0.86 - 1.14 Final ASSESSMENT / PLAN INR assessment THER Recheck INR In: 4 WEEKS INR Location Clinic Anticoagulation Summary as of 03/14/2017 INR goal 2.0-3.0 Today's INR 2.5 Maintenance plan 10 mg (10 mg x 1) on Mon, Wed, Fri; 7.5 mg (7.5 mg x 1) all other days Full instructions 10 mg on Mon, Wed, Fri; 7.5 mg all other days Weekly total 60 mg No change documented Qing Guy, CHANDLER Plan last modified Susie Murphy (09/26/2016) Next INR check 04/10/2017 Target end date Indefinite Indications 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] Anticoagulation Episode Summary INR check location [facility] Preferred lab Send INR reminders to [facility] Comments 7.5mg & 10mg tabs - devaughn dose // APPT CARD ONLY Anticoagulation Care Providers Provider Role Specialty Phone number Lucero Stevenson MD Pediatrics [phone] See the Encounter Report to view Anticoagulation Flowsheet and Dosing Calendar (Go to Encounters tabin chart review, and find the Anticoagulation Therapy Visit) Qing Guy RN documented in this encounter Plan of Treatment Upcoming Encounters Date Type Specialty Care Team Description 11/15/2022 Virtual Visit Haylie Wakefield, [facility] [address] [place], [place] [id number] (Wo rk) 11/15/2022 Virtual Visit IM/Peds Yane Barraza MD [address] [place] [phone] (Wo rk) 03/03/2023 Virtual Visit Neurology Erlinda Barber MD [address] [facility] [address] [place] [address] (Wo rk) documented as of this encounter Procedures Procedure Name Priority Date/Time Associated Diagnosis Comme nts INR POINT OF CARE Routine 03/14/2017 Pulmonary embolism and Results for this infarction (H) procedure are in the results section . documented in this encounter Results (ABNORMAL) INR point of care (03/14/2017) athologist Signature INR Point of 2.5 (A) 0.86 - [facility] 1.[address] [facility] Specimen (Source) Anatomical Location Collection Method / Collectio n Time Received Time / Laterality Volume 03/14/2017 Lucero Stevenson MD LAB - BLOOD ORDERABLES Performing Organization Address City/State/[facility] Code Phon e Number [facility] [address] [place] [address] documented in this encounter Visit Diagnoses Diagnosis Pulmonary embolism and infarction (H) documented in this encounter Care Teams Regional Sales Coordinator Relationship Specialty Start Date End Date Lucero Stevenson MD PCP - General Pediatrics 10/11/11 04/22/19 Chastity Montero MD MD Dermatology 09/23/14 [address] [facility] [address] [place], [place] [id number] documented as of this encounter
--- OUTSIDE RECORDS SUMMARY | 2022-06-15 13:17 | XMS_ITS | Encounter Summary ---
:1945 Author Organization [facility] Address [address] [place] [address] Care Team Providers Name Role Phone Lucero Stevenson MD Primary Care Provider [phone] Chastity Montero MD Unavailable [phone] Reason for Visit Reason Comments Forms from [facility] Encounter Details Date Type Department Care Team Description 08/01/[address] [facility], Form s (from [facility] Levon Francisco) [address] [facility] [address] [place] [address] [place], [place] [phone] [address] Social History Tobacco Use Types Packs/Day [...] documented as of this encounter Progress Notes Bee Hensley CMA - 08/02/2016 12:02 PM CST Faxed form to [employer], sent copy to abstracting, and mailed pt copy. Notified pt forms faxed, she is aware.Bee Hensley CMA COLLECTOR SUPERVISOR Lucero Stevenson MD - 08/02/2016 9:11 AM CST Form completed and given to [facility]. Lucero Stevenson MD COLLECTOR SUPERVISOR Qing Guy RN - 08/01/2016 1:02 PM CST Patient brought in form from [employer]. Critical Life-Sustaining Medical Equipment Form Needs to be signed and faxed to [employer]. Form on Dr. Stevenson's desk. Qing Guy, RN COLLECTOR SUPERVISOR documented in this encounter Plan of Treatment Upcoming Encounters Date Type Specialty Care Team Description 11/15/2022 Virtual Visit Pharm Haylie Gonzalez, [facility] [address] [facility] [place] [address] (Wo rk) 11/15/2022 Virtual Visit IM/Peds Yane Barraza MD [address] [facility] [place] [address] (Wo winter) 03/03/2023 Virtual Visit Neurology Erlinda Barber MD [address] [facility] [address] [place] [address] (Wo rk) documented as of this encounter Visit Diagnoses Not on filedocumented in this encounter Care Teams Cancer Program Consultant Relationship Specialty Start Date End Date Lucero Stevenson MD PCP - General Pediatrics 10/11/11 04/22/19 Chastity Montero MD MD Dermatology 09/23/[address] [place] [address] documented as of this encounter
--- OUTSIDE RECORDS SUMMARY | 2022-06-15 13:17 | XMS_ITS | Encounter Summary ---
:1945 Author Organization [facility] Address [address] [place] [address] Care Team Providers Name Role Phone Lucero Stevenson MD Primary Care Provider [phone] Chastity Montero MD Unavailable [phone] Reason for Referral Rehab Therapy Physical Therapy Specialty Diagnoses / Procedures Referred By Contact Refer red To Contact [facility] [address] [place] [address] Referral ID Status Reason Start Date Expiration Date Visits Requ ested Visits Authorized Encounter Details Date Type Department Care Team Description 03/22/2017 Hospital Encounter [facility] [address] [place], [place] [address] Lymphedema of both Wound Clinic Johnnie Moctezuma MD [address] [place], [place] [phone] lower extremities [address] (Primary Dx) [address] [place] [address] Social History Tobacco Use Types Packs/Day [...] 05/03/2021 organizations such as latter-day groups, unions, [employer] or athletic groups, or school groups? How [...] Sign Reading Time Taken Comments Blood Pressure 172/86 03/22/2017 10:41 AM CDT Pulse 71 03/22/2017 10:41 AM CDT Temperature 36.7 ??C (98 ??F) 03/22/2017 10:41 AM CDT Respiratory Rate 16 03/22/2017 10:41 AM CDT Oxygen Saturation - - Inhaled [...] % Daily as needed 180 g 3 2016 03/27/2017 ointmentIndications: Dermatitis losartan (COZAAR) 100 MG Take 1 tablet (100 90 tablet 3 05/30/2018 tabletIndications: mg) by mouth daily Essential hypertension, benign order for Equipment being 1 Units 0 01/03/2017 8 DMEIndications: Other ordered: 4 wheeled osteoarthritis involving walker for home use multiple joints ORDER FOR Equipment being ordered: CPAP mask 1 Device 1 0 01/03/2014 10/18/2017 DMEIndications: Severe Please dispense- Comfort gel blue nasal mask with HGR,DOM-Size Small obstructive sleep apnea Patient's machine is a Respi ronics by [employer] Star Auto A-Flex System 1. ORDER FOR [...] 1 11/1405/20/2017 MG tabletIndications: directed by INR truck terminal manager current use of clinic anticoagulant therapy warfarin (COUMADIN) 7.5 Take 7.5mg TTSS or 50 tablet 1 11/1405/22/2017 MG tabletIndications: as directed by INR truck terminal manager current use of Clinic. anticoagulant therapy documented as of this encounter Progress Notes Johnnie Alcocer MD - 03/22/2017 11:21 AM CDT [facility] Progress Note Subject: Charlette Brush is a 72-year-old woman who was referred to the [facility] by her primary care physician Dr. Lucero Stevenson. She has a long history of lymphedema and has been to the lymphedema clinic in the remote past. It has been greater than 10 years since her last visit there. She has not had wounds on her legs in the past but has worn compressive garments after a pulmonaryembolus in 2001. Her current problem is an area of weeping on the left lower anterior leg. This is been going on for about a month. She has had no fever chill or chills. PMH: Past Medical History: Diagnosis Date ??? BENIGN HYPERTENSION 07/30/2003 ??? benign positional vertigo 09/08/2004 s/p canolith repositioning 07/21 ??? Coagulation disorder (H) Pulmonary embolism 2001 ??? GERD (gastroesophageal reflux disease) ??? CEFERINO (obstructive sleep apnea) nightly CPAP ??? Other lymphedema 11/04/2003 ??? PULM EMBOLISM/INFARCT NOS 11/20/2001 Social Hx: Social History Social History ??? Marital status: Single Spouse name: N/A ??? Number of children: 1 ??? 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 Smoking status: Never Smoker ??? Smokeless tobacco: Never Used ??? Alcohol use No ??? Drug use: No ??? Sexual activity: No Other Topics Concern ??? Parent/Sibling W/ Cabg, Mi Or Angioplasty Before 65f 55m? Yes Social History Narrative Surgical Hx: Past Surgical History: Procedure Laterality Date ??? CHOLECYSTECTOMY, OPEN 1970 ??? COLONOSCOPY N/A 01/13/2015 Procedure: COLONOSCOPY; Surgeon: Jose Juan Castaneda MD; Location: [facility] OR ? ? TONSILLECTOMY & ADENOIDECTOMY Allergies: Allergies Allergen Reactions ??? Cephalexin Hives Keflex - hives ??? Lanolin Other (See Comments) skin irritation ??? Lisinopril Cough ??? Neomycin Other (See Comments) skin irritation ??? Penicillins Hives ??? Bactroban [Mupirocin Calcium] Rash Medications: Current Outpatient Prescriptions Medication ??? atenolol (TENORMIN) 25 MG tablet ??? triamterene-hydrochlorothiazide (DYAZIDE) 37.5-25 MG per capsule ??? losartan (COZAAR) 100 MG tablet ??? order for DME ??? warfarin (COUMADIN) 7.5 MG tablet ??? warfarin (COUMADIN) 10 MG tablet ? ? Elastic Bandages & Supports (JOBST KNEE HIGH COMPRESSION SM) MISC ??? hydrocortisone 2.5 % ointment ??? desoximetasone (TOPICORT) 0.05 % GEL ??? ORDER FOR DME ??? ORDER FOR DME ??? Cholecalciferol (VITAMIN D PO) ??? cetirizine (ZYRTEC) 10 MG tablet ??? acetaminophen (TYLENOL) 325 MG tablet No current facility-administered medications for this encounter. Objective: BP 172/86 (BP Location: Left arm) Pulse 71 Temp 98 ??F (36.7 ??C) (Temporal) Resp 16 General: Patient is alert and orientated, no acute distress. The patient is morbidly obese appears quite comfortable and mobile. On the left lower extremity anteriorly there is a 6.3 x 3.8 x 0 cm area of weeping fluid. There are small some smaller areas of denuded epithelium but for the most part is just some small blisters that we are weeping. There is no sign of acute infection. She does have edemabilaterally. No debridement is necessary. Vascular: She has 2+ dorsalis pedis pulses bilaterally the posterior tibial are not palpable, likelysecondary to her weight. Impression: Morbidly obese woman with chronic lymphedema and now with an area we weeping on her leftlower leg. I think we have to get compression on this to get this to resolve. In 2001 she did have good luck with zippered Jobst and was able to wear those. Although she is 30 pounds heavier now than she was then she thinks that this may work. We're going to refer to the lymphedema clinic for their recommendation on treatment of the edema. Plan: We will dress the wounds with normal gel and apply spandagrip. Patient will return to the clinic in 4 weeks time. Johnnie Alcocer MD 03/22/17 11:29 AM documented in this encounter Plan of Treatment Upcoming Encounters Date Type Specialty Care Team Description 11/15/2022 Virtual Visit Pharm Haylie Gonzalez, [facility] [address] [facility] [place] [address] (Lena max) 11/15/2022 Virtual Visit IM/Peds Yane Barraza MD [address] [facility] [place] [address] (Wo rk) 03/03/2023 Virtual Visit Neurology Erlinda Barber MD [address] [facility] [address] [place] [address] (Wo rk) Scheduled Referrals Name Type Priority Associated Diagnoses Order S chedule LYMPHEDEMA THERAPY Referral Routine Lymphedema of both low er Ordered: 03/22/2017 REFERRAL extremities documented as of this encounter Visit Diagnoses Diagnosis Lymphedema of both lower extremities - P rimary documented in this encounter Care Teams Director Regulatory Affairs Relationship Specialty Start Date End Date Lucero Stevenson MD PCP - General Pediatrics 10/11/11 04/22/19 Chastity Montero MD MD Dermatology 09/23/14 [address] [facility] [address] [place], [place] [address] documented as of this encounter
--- OUTSIDE RECORDS SUMMARY | 2022-06-15 13:17 | XMS_ITS | Encounter Summary ---
:1945 Author Organization [place] Address [address] [place] [address] Care Team Providers Name Role Phone Lucero Stevenson MD Primary Care Provider [phone] Chastity Montero MD Unavailable [phone] Johnnie Alcocer MD Unavailable Reason for Visit Rehab Therapy Integrated Services (Routine) - Closed Specialty Diagnoses / Procedures Referred By Contact Refer red To Contact Diagnoses MEDICARE//Lymphedema of both lower extremities [facility] Procedures LYMPHEDEMA EVALUATION [facility] [place] [address] [facility] [address] [place] [address] Phone: Fax: Referral ID Status Reason Start Date Expiration Date Visits V isits Requested Authorized EH-PT/OT/FIREWORKS MAKER Closed 03/23/2017 07/16/2017 365 365 ([id number]) Encounter Details Date Type Department Care Team Description 03/28/2017 Hospital Encounter [facility] Kelly Chele Ly mphedema of both lower extremities (Primary Dx); Rehabilitation A Difficulty dressing self Services [facility] [address] [place] [address] [facility] [phone] [place] [address] Social History Tobacco Use Types [...] 05/03/2021 organizations such as moravian groups, unions, fraCoridea or athletic groups, or school groups? How [...] machine is a Respi ronics by [employer], [facility] Star Auto A-Flex System 1. ORDER [...] 1 11/1405/20/2017 MG tabletIndications: directed by INR continuous churn buttermaker current use of clinic anticoagulant therapy warfarin (COUMADIN) 7.5 Take 7.5mg TTSS or 50 tablet 1 11/1405/22/2017 MG tabletIndications: as directed by INR continuous churn buttermaker current use of Clinic. anticoagulant therapy documented as of this encounter Progress Notes Chele Mendoza - 03/28/2017 11:59 PM CDT 03/28/17 1200 Signing Clinician's Name / Credentials Signing clinician's name / credentials Omkar Mendoza OTR/L; CLT Session Number Session Number 08/26, 09/05 (medicare primary; BCBS secondary) Adult OT Eval [...] re-acccumulation of extracellular fluid Target date 06/02/17 Goal 3 Goal identifier 1b Goal description [...] dressing Target date 06/02/17 Manual Therapy Minutes 70 Minutes Skilled Intervention education; measurements; GCB's Patient Response Pt reports understanding education provided and POC Treatment Detail Pt returns today for start intensive phase. Full leg measurements taken and plan toinitiate GCB education. Pt educated this may take some time to figure out best hold as she has heavythigh and hip involvement and will not be able to address these regions with GCB/compression until evening hours 2/2 stability and ambulation during the day; pt also has drastic shape changes in BLE's from distribution of lymphatic fluid in BLE's. Stockinette donned foot-knee crease; guaze kept off foot today as pts shoes will provide little room to redonn-guaze ankle-mid calf. 2-10cm foam on LLE and3-10cm foam on RLE donned ankle-mid calf to rduce discrepancy between superior and inferiro aspects of lower legs for best hold. Foam still brought to knee crease for hold and comfort as well. 6cm lamberto sandle, 8cm HAS, and 3-10cm GCB donned to knee crease and layers kept thin at feet for shoe fit with lamberto sandle and HAS layers. Pt asked to monitor balance and remove if pain an issue; pt does endorse some discomfort at posterior aspect L foot but asked to walk and shift/move and hopefully pain will rduce; when pt stands she states it felt better than when sitting. Pt asked to perform MLD to medial thighs and pull fluid up legs intermittently throughout the day to avoid lobules weighing down lower leg compression and deterring adequete hold. Pt changed dressing and applied her cortizone cream prior to wrap donning-looked a bit more red and weepy than lst week and pt attributes to issue with allergies and materials used over open skin which she has hopefully resolved with cath lab technologist this past week. Brief conversation about hip spica possible need 2/2 R hip lobule. Education Learner Patient Readiness Acceptance Method Explanation;Demonstration Response Verbalizes understanding;Needs reinforcement Plan Plan for next session check hold and make adjustments as needed; how was comfort; start getting pt to pamela as soon as able/issued handout when setup/approach more solidified; ex's for self MLD and muscle pumping Total Session Time Timed Code Treatment Minutes 70 Total Treatment Time (sum of timed and untimed services) 70 Chele Mendoza - 03/28/2017 11:59 PM CDT 03/28/17 1200 Signing Clinician's Name / Credentials Signing clinician's name / credentials Omkar Mendoza OTR/L; CLT Discipline Discipline OT Lower Extremity Girth Measurements RT: Great Toe 9.3 cms RT: MTP's 27.2 cms RT: Arch of Foot 27.3 cms RT: Calcaneous 35 RT: 10 cm above heel 36 cms RT: 20 cm above heel 41 cms RT: 30 cm above heel 58.6 cms RT: 40 cm above heel 69 cms (knee crease sitting w/o lobule of medial thigh included) RT: 50 cm above heel 85 cms RT: 60 cm above heel 96.7 cms RT: 70 cm above heel 100.9 cms RT: Lower Extremity Total Volume (10cm-70cm) 63392.17 LT: Great Toe 10.1 cms LT: MTP's 26.5 cms LT: Arch of Foot 27.3 cms LT: Calcaneous 36.5 LT: 10 cm above heel 37.3 cms LT: 20 cm above heel (NT-dressing/open skin) LT: 30 cm above heel 77.2 cms LT: 40 cm above heel 70.4 cms LT: 50 cm above heel 83.5 cms LT: 60 cm above heel 91.8 cms LT: 70 cm above heel 101 cms documented in this encounter Miscellaneous Notes Addendum Note - Chele Mendoza Tita - 03/28/2017 11:59 PM CDTEncounter addended by: Chele Mendoza, OT on: 04/21/2017 10:10 AM
Actions taken: Sign clinical note, Flowsheet accepted Addendum Note - Chele Mendoza Tita - 03/28/2017 11:59 PM CDTEncounter addended by: Chele Mendoza OT on: 04/21/2017 10:15 AM
Actions taken: Sign clinical note, Flowsheet accepted documented in this encounter Plan of Treatment Upcoming Encounters Date Type Specialty Care Team Description 11/15/2022 Virtual Visit Pharm Haylie Gonzalez, [facility] [address] [facility] [address] [place] [phone] (Wo rk) 11/15/2022 Virtual Visit IM/Peds Yane Barraza MD [address] [facility] [facility] [address] [place] [phone] (Wo rk) 03/03/2023 Virtual Visit Neurology Erlinda Barber MD [address] [facility] [address] [place], [place] [phone] (Wo rk) documented as of this encounter Visit Diagnoses Diagnosis Lymphedema of both lower extremities - P rimary Difficulty dressing self documented in this encounter Care Teams Triple Air Valve Tester Relationship Specialty Start Date End Date Lucero Stevenson MD PCP - General Pediatrics 10/11/11 04/22/19 Chastity Montero MD MD Dermatology 09/23/14 [address] [facility] [address] [place], [place] [phone] Johnnie Alcocer MD Surgeon General Surgery 03/23/17 [address] [facility] [address] [place], [place] [address] documented as of this encounter
--- OUTSIDE RECORDS SUMMARY | 2022-06-15 13:17 | XMS_ITS | Encounter Summary ---
:1945 Author Organization [place] Address [address] [place] [address] Care Team Providers Name Role Phone Lucero Stevenson MD Primary Care Provider Chastity Montero MD Unavailable [phone] Reason for Referral Consultation - Closed Specialty Diagnoses / Procedures Referred By Contact Refer red To Contact Diagnoses Ulcer of lower limb, left, limited to breakdown of skin (H) Lucero Stevenson, ZFV WOUND HEALING MD [facility] [address] [facility] [address] [place] [address] [place] [address] Fax: Referral ID Status Reason Start Date Expiration Date Visits Requ ested Visits Authorized [id number] Closed 03/14/2017 03/14/2018 1 1 Reason for Visit Reason Comments Wound Check Encounter Details Date Type Department Care Team Description 03/14/[address] [facility] Lucero Stevenson r of lower limb, Clinic [place] Littlejohn MD left, limited to [address] [facility] Y breakdown of skin (H) [address] [facility] (Primary Dx) [address] [place] [address] [place] [address] (Wo rk) Social History Tobacco [...] Sign Reading Time Taken Comments Blood Pressure 110/70 03/14/2017 2:14 PM CDT Pulse 66 03/14/2017 2:14 PM CDT Temperature 37.2 ??C (98.9 ??F) 03/14/2017 2:14 PM CDT Respiratory Rate 18 03/14/2017 2:14 PM CDT Oxygen Saturation 96% 03/14/2017 2:14 PM CDT Inhaled Oxygen Concentration - - Weight 181.9 kg (401 lb) 03/14/2017 2:14 PM CDT Height - - Body Mass Index 64.75 01/20/2017 11:22 AM CDT documented in this encounter Patient Instructions Patient InstructionsRoxi Silverman - 03/14/2017 2:00 PM CDT Keep leg elevated with pillows (up to the level of heart) as much as possible to drain and keep fluid out of the wound. Consider being fitted for compression stockings to help with swelling. Change bandage every hour to keep wound clean. Keep wound covered as much as you can. Change the location you apply the adhesive. Follow up with Avionics Engineer as scheduled. Call the Wound Clinic at [facility]. documented in this encounter Progress Notes Lucero Stevenson MD - 03/14/2017 2:00 PM CDT SUBJECTIVE: Charlette Brush is a 72 year old female who presents to clinic today for the following health issues: Open wound on left lower leg x1 month, seems to be draining clear fluid, sometimes warm to touch, notenderness or pain. Has appt with derm 03/27. Charlette developed a red wound on her left lower extremity about 3+ weeks ago. She reports that she picked a patch of dry skin on her leg and developed clear liquid drainage from the wound. The patient reports that sometimes there is a lot of discharge and other times not. Denies purulent discharge.The area of erythema fluctuates from a little area to a large area today the area is not as severe. Charlette is not able to use any creams and ointments due to allergy to Neomycin but uses a band aid to keep the area clean. No fevers. Problem list and histories reviewed & adjusted, as indicated. Additional history: as documented Patient Active Problem List Diagnosis ??? Essential hypertension, benign ??? Pulmonary embolism and infarction (H) ??? Morbid obesity (H) ??? Other lymphedema ??? CEFERINO (obstructive sleep apnea) ??? CARDIOVASCULAR SCREENING; LDL GOAL LESS THAN 130 ??? Dermatitis, stasis ??? Advanced directives, counseling/discussion ??? Health Prison ??? Binge eating ??? Eczema ??? Pre-diabetes ??? Vitamin D deficiency ??? 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 [...] Outpatient Prescriptions Medication Sig Dispense Refill ??? atenolol (TENORMIN) 25 MG tablet Take [...] & Supports (JOBST KNEE HIGH COMPRESSION SM) [facility] Please custom-measure for ZIPPERED knee-high compression stockings. and issue 2 each 3 ??? hydrocortisone 2.5 % ointment Daily as needed 180 g 3 ??? desoximetasone (TOPICORT) 0.05 % GEL Apply 1 g topically two times daily 180 g 3 ??? ORDER FOR DME Equipment being ordered: CPAP mask Please dispense- Comfort gel blue nasal mask with HGR,DOM-Size Small Patient's machine is a Respironics by [employer], [facility] Auto A-Flex System 1. 1 Device 1 [...] updated as needed this visit by clinical staffTobacco Allergies Med Hx Surg Hx Fam Hx Soc Hx Reviewed and updated as needed this visit by Provider ROS: Constitutional, HEENT, cardiovascular, pulmonary, GI, , musculoskeletal, neuro, skin, endocrine and psych systems are negative, except as otherwise noted. OBJECTIVE: BP 110/70 (Patient Position: Chair, Cuff Size: Adult Regular) Pulse 66 Temp 98.9 ??F (37.2 ??C) (Tympanic) Resp 18 Wt (!) 181.9 kg (401 lb) SpO2 96% BMI 64.75 kg/m2 Body mass index is 64.75 kg/(m^2). GENERAL: healthy, alert and no distress SKIN: 2x3 cm area of erythema on left lower extremity with cerous drainage and mild blistering; 2nd area of mildly erythematous rash over left bethea. PSYCH: mentation appears normal, affect normal/bright Diagnostic Test Results: none ASSESSMENT/PLAN: (L97.921) Ulcer of lower limb, left, limited to breakdown of skin (H) (primary encounter diagnosis) -- No current infection. Reviewed signs and symptoms of infection. -- Discussed proper wound care treatment, keeping area dressed and trying to keep adhesives away from the wound as she reacts to the adhesive. -- keep leg elevated as much as possible, would also benefit from compression stockings -- Advised the patient to call wound care clinic to set up an appointment. Plan: WOUND CARE REFERRAL -- Call wound clinic for more information on services or to schedule an appointment. -- Follow up with Dermatology appointment that is scheduled on 03/27/2017. Follow-up if developing signs and symptoms of infection. The information in this document, created by the medical director occupational health for me, accurately reflects the services I personally performed and the decisions made by me. I have reviewed and approved this document for accuracy prior to leaving the patient care area. Lucero Stevenson MD [facility] documented in this encounter Nursing Notes Patricia Freire CMA - 03/14/2017 2:00 PM CDT Chief Complaint Patient presents with ??? Wound Check Initial BP 110/70 (Patient Position: Chair, Cuff Size: Adult Regular) Pulse 66 Temp 98.9 ??F (37.2 ??C) (Tympanic) Resp 18 Wt (!) 401 lb (181.9 kg) SpO2 96% BMI 64.75 kg/m2 Estimated body mass index is 64.75 kg/(m^2) as calculated from the following: Height as of 01/20/17: 5' 5.98 (1.676 m). Weight as of this encounter: 401 lb (181.9 kg). Medication Reconciliation: complete.Patricia Crump MA documented in this encounter Plan of Treatment Upcoming Encounters Date Type Specialty Care Team Description 11/15/2022 Virtual Visit Pharm D Haylie Cheung, [facility] [address] [facility] [address] [place] [phone] (Wo rk) 11/15/2022 Virtual Visit IM/Peds Yane Barraza MD [address] [facility] [place] [address] (Wo rk) 03/03/2023 Virtual Visit Neurology Erlinda Barber MD [address] [facility] [address] [place] [address] (Wo rk) Scheduled Referrals Name Type Priority Associated Diagnoses Order S chedule WOUND CARE REFERRAL Referral Routine Ulcer of lower limb, left, Ordered: 03/14/2017 limited to breakdown of skin (H) documented as of this encounter Visit Diagnoses Diagnosis Ulcer of lower limb, left, limited to br eakdown of skin (H) - Primary documented in this encounter Care Teams Chemistry Manager Relationship Specialty Start Date End Date Lucero Stevenson MD PCP - General Pediatrics 10/11/11 04/22/19 Chastity Montero MD MD Dermatology 09/23/14 [address] [address] documented as of this encounter
--- OUTSIDE RECORDS SUMMARY | 2022-06-15 13:17 | XMS_ITS | Encounter Summary ---
:1945 Author Organization [place] Address [address] [place] [address] Care Team Providers Name Role Phone Lucero Stevenson MD Primary Care Provider [phone] Chastity Montero MD Unavailable [phone] Reason for Visit Reason Onset Date Comments Refill Request 12/24/2016 losartan Encounter Details Date Type Department Care Team Description 12/24/2016 Refill [facility] Lucero Stevensoni ll Request Clinic [place] Littlejohn MD (losartan) [address] [facility] [address] [place] [address] [address] [place] [address] [place] [address] [phone] Social History Tobacco Use Types Packs/Day Years [...] Telephone Encounter - Kendall Kwan - 12/24/2016 12:12 PM CDT Pending Prescriptions: Disp Refills losartan (COZAAR) 100 MG tablet 90 tab*3 Sig: Take 1 tablet (100 mg) by mouth daily Last Written Prescription Date: 01/01/2016 Last Fill Quantity: 90, # refills: 3 Last Office Visit with G, P or [facility] prescribing provider: 01/01/2016 Next 5 appointments (look out 90 days) Jan 03, 2017 11:00 AM CDT [facility] [address] [place] [address] [address] [facility] [address] Potassium Date Value Ref Range Status [...] Cheung, [facility] [address] [facility] [place] [address] (Lena max) 11/15/2022 Virtual [place] [address] [place] [address] [place] [address] (Lena max) 03/03/2023 Virtual Visit Neurology Erlinda Barber MD [address] [facility] [address] [place] [address] (Wo rk) documented as of this encounter Visit Diagnoses Diagnosis Essential hypertension, benign documented in this encounter Care Teams Gum Dipper Relationship Specialty Start Date End Date Lucero Stevenson MD PCP - General Pediatrics 10/11/11 04/22/19 Chastity Montero MD MD Dermatology 09/23/[address] [place] [address] 98 [place] [address] documented as of this encounter
--- OUTSIDE RECORDS SUMMARY | 2022-06-15 13:17 | XMS_ITS | Encounter Summary ---
:1945 Author Organization [place] Address [address] [place] [address]. [place] [address] Care Team Providers Name Role Phone Lucero Stevenson MD Primary Care Provider [phone] Chastity Montero MD Unavailable Encounter Details Date Type Department Care Team Description 11/24/2016 Anticoagulation Therapy [facility] Pulmonary embolism and infarction (H); Visit Clinic [place] pocket stitcher current use of ant icoagulant therapy [address] [facility] [address] [place] [address] Social [...] encounter Progress Notes Qing Guy RN - 11/24/2016 2:48 PM CDT ANTICOAGULATION FOLLOW-UP CLINIC VISIT Patient Name: Charlette Brush Date: 11/24/2016 Contact Type: Face to Face SUBJECTIVE: Patient Findings Positives No Problem Findings Comments Fell onto carpet last night. No injuries. Needed to call 911 to help her up. She weighs 400# OBJECTIVE INR Protime Date Value Ref Range Status 11/24/2016 2.7 (A) 0.86 - 1.14 Final ASSESSMENT / PLAN INR assessment THER Recheck INR In: 4 WEEKS INR Location Clinic Anticoagulation Summary as of 11/24/2016 INR goal 2.0-3.0 Today's INR 2.7 Maintenance plan 10 mg (10 mg x 1) on Mon, Wed, Fri; 7.5 mg (7.5 mg x 1) all other days Full instructions 10 mg on Mon, Wed, Fri; 7.5 mg all other days Weekly total 60 mg No change documented Qing Guy RN Plan last modified Susie Murphy (09/26/2016) Next INR check 12/19/2016 Target end date Indefinite Indications 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] Anticoagulation Episode Summary INR check location Coumadin Clinic Preferred lab Send INR reminders to [facility] Comments 7.5mg & 10mg tabs - devaughn dose // APPT CARD ONLY Anticoagulation Care Providers Provider Role Specialty Phone number Lucero Stevenson MD Pediatrics [phone] See the Encounter Report to view Anticoagulation Flowsheet and Dosing Calendar (Go to Encounters tabin chart review, and find the Anticoagulation Therapy Visit) Qing Guy RN documented in this encounter Plan of Treatment Upcoming Encounters Date Type Specialty Care Team Description 11/15/2022 Virtual Visit Pharm Haylie Gonzalez, [facility] [address] [facility] [place] [address] (Lena max) 11/15/2022 Virtual Visit IM/Peds Yane Barraza MD [address] [facility] [place] [address] (Wo rk) 03/03/2023 Virtual Visit Neurology Erlinda Barber MD [address] [facility] [address] [place] [address] (Wo rk) documented as of this encounter Procedures Procedure Name Priority Date/Time Associated Diagnosis Comme nts INR POINT OF CARE Routine 11/24/2016 Pulmonary embolism and Results for this infarction (H) procedure are in the results section . documented in this encounter Results (ABNORMAL) INR point of care (11/24/2016) athologist Signature INR Point of 2.7 (A) 0.86 - [facility] 1.14 [facility] Specimen (Source) Anatomical Location Collection Method / Collectio n Time Received Time / Laterality Volume 11/24/2016 Lucero Stevenson MD LAB - BLOOD ORDERABLES Performing Organization Address City/State/ZIP Code Phon e Number [facility] [address] [place] [address] documented in this encounter Visit Diagnoses Diagnosis Pulmonary embolism and infarction (H) pocket stitcher current use of anticoagulant t herapy documented in this encounter Care Teams Business Services Tech Relationship Specialty Start Date End Date Lucero Stevenson MD PCP - General Pediatrics 10/11/11 04/22/19 Chastity Montero MD MD Dermatology 09/23/14 [address] [facility] [address] [place], [place] [address] documented as of this encounter
--- OUTSIDE RECORDS SUMMARY | 2022-06-15 13:17 | XMS_ITS | Encounter Summary ---
:1945 Author Organization [place] Address [address] [place] [address] Care Team Providers Name Role Phone Lucero Stevenson MD Primary Care Provider [phone] Chastity Montero MD Unavailable [phone] Encounter Details Date Type Department Care Team Description 01/16/2017 Anticoagulation Therapy [facility] Pulmonary embolism Visit Clinic [place] and infarction (H) [address] [facility] [address] [place] [address] Social [...] encounter Progress Notes Qing Guy RN - 01/16/2017 11:21 AM CDT ANTICOAGULATION FOLLOW-UP CLINIC VISIT Patient Name: Charlette Brush Date: 01/16/2017 Contact Type: Face to Face SUBJECTIVE: Patient Findings Positives No Problem Findings OBJECTIVE INR Protime Date Value Ref Range Status 01/16/2017 2.6 (A) 0.86 - 1.14 Final ASSESSMENT / PLAN INR assessment THER Recheck INR In: 4 WEEKS INR Location Clinic Anticoagulation Summary as of 01/16/2017 INR goal 2.0-3.0 Today's INR 2.6 Maintenance plan 10 mg (10 mg x 1) on Mon, Wed, Fri; 7.5 mg (7.5 mg x 1) all other days Full instructions 10 mg on Mon, Wed, Fri; 7.5 mg all other days Weekly total 60 mg No change documented Qing Guy, CHANDLER Plan last modified Susie Murphy (09/26/2016) Next INR check 02/14/2017 Target end date Indefinite Indications 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] Anticoagulation Episode Summary INR check location [facility] Preferred lab Send INR reminders to [facility] Comments 7.5mg & 10mg tabs - devaughn dose // APPT CARD ONLY Anticoagulation Care Providers Provider Role Specialty Phone number Lucero Stevenson MD Pediatrics [phone] See the Encounter Report to view Anticoagulation Flowsheet and Dosing Calendar (Go to Encounters tabin chart review, and find the Anticoagulation Therapy Visit) Qing Guy RN documented in this encounter Plan of Treatment Upcoming Encounters Date Type Specialty Care Team Description 11/15/2022 Virtual Visit Pharm D Haylie Cheung, [facility] [address] [facility] [place] [address] (Lena max) 11/15/2022 Virtual Visit IM/Peds Yane Barraza MD [address] [facility] [place] [address] (Lena max) 03/03/2023 Virtual Visit Neurology Erlinda Barber MD [address] [facility] [address] [place] [address] (Wo rk) documented as of this encounter Procedures Procedure Name Priority Date/Time Associated Diagnosis Comme nts INR POINT OF CARE Routine 01/16/2017 Pulmonary embolism and Results for this infarction (H) procedure are in the results section . documented in this encounter Results (ABNORMAL) INR point of care (01/16/2017) athologist Signature INR Point of 2.6 (A) 0.86 - [employer] 1.14 [facility] Specimen (Source) Anatomical Location Collection Method / Collectio n Time Received Time / Laterality Volume 01/16/2017 Lucero Stevenson MD LAB - BLOOD ORDERABLES Performing Organization Address City/State/ZIP Code Phon e Number [facility] [address] [place] [address] documented in this encounter Visit Diagnoses Diagnosis Pulmonary embolism and infarction (H) documented in this encounter Care Teams Insurance Follow Up Representative Relationship Specialty Start Date End Date Lucero Stevenson MD PCP - General Pediatrics 10/11/11 04/22/19 Chastity Montero MD MD Dermatology 09/23/[address] [place] [address] [address] [place] [address] documented as of this encounter
--- OUTSIDE RECORDS SUMMARY | 2022-06-15 13:17 | XMS_ITS | Encounter Summary ---
:1945 Author Organization [place] Address [address] [place] [address] Care Team Providers Name Role Phone Lucero Stevenson MD Primary Care Provider [phone] Chastity Montero MD Unavailable [phone] Reason for Visit Reason Onset Date Comments Refill Request 12/30/2016 atenolol (TENORMIN) 25 MG tablet Encounter Details Date Type Department Care Team Description 12/30/2016 Refill [facility] Lucero Stevensoni ll Request Clinic Yarelis Littlejohn MD (atenolol (TENORMIN) 25 [address] [facility] Y MG tablet) [address] [place] [address] [place] [address] [phone] Social History Tobacco Use Types Packs/Day Years [...] this encounter Miscellaneous Notes Telephone Encounter - Fidel Alexy - 12/30/2016 3:32 PM CDT atenolol (TENORMIN) 25 MG tablet Last Written Prescription Date: 01-01-2016 Last Fill Quantity: 180, # refills: 3 Last Office Visit with G, P or [facility] prescribing provider: 12-01-2015 Next 5 appointments (look out 90 days) Jan 03, 2017 11:00 AM CDT PHYSICAL with Lucero Stevenson MD [facility] ([facility] [address] [place] [address] [address] [facility] [address] Potassium Date Value Ref Range Status 01/01/2016 3.9 3.4 - 5.3 mmol/L Final Creatinine Date Value Ref Range Status 01/01/2016 0.61 0.52 - 1.04 mg/dL Final BP Readings from Last 3 Encounters: 01/22/16 149/66 01/04/16 152/81 01/01/16 120/78 documented in this encounter Plan of Treatment Upcoming Encounters Date Type Specialty Care Team Description 11/15/2022 Virtual Visit Pharm D Haylie Cheung, [facility] [address] [place] [address] [place] [address] (Wo winter) 11/15/2022 Virtual Visit [place] [address] [place] [address] [place] [address] (Wo winter) 03/03/2023 Virtual Visit Neurology Erlinda Barber MD [address] [facility] [address] [place] [address] (Wo rk) documented as of this encounter Visit Diagnoses Diagnosis Essential hypertension, benign documented in this encounter Care Teams Jewel Bearing Driller Relationship Specialty Start Date End Date Lucero Stevenson MD PCP - General Pediatrics 10/11/11 04/22/19 Chastity Montero MD MD Dermatology 09/23/[address] [place] [address] [address] [place] [address] documented as of this encounter
--- OUTSIDE RECORDS SUMMARY | 2022-06-15 13:17 | XMS_ITS | Encounter Summary ---
:1945 Author Organization [facility] Address [address] [place] [address] Care Team Providers Name Role Phone Lucero Stevenson MD Primary Care Provider [phone] Chastity Montero MD Unavailable Encounter Details Date Type Department Care Team Description 12/19/2016 Anticoagulation Therapy [facility] Pulmonary embolism Visit Clinic [place] and infarction (H) [address] [facility] [address] [place] [address] Social [...] encounter Progress Notes Qing Guy RN - 12/19/2016 11:09 AM CDT ANTICOAGULATION FOLLOW-UP CLINIC VISIT Patient Name: Charlette Brush Date: 12/19/2016 Contact Type: Face to Face SUBJECTIVE: Patient Findings Positives No Problem Findings OBJECTIVE INR Protime Date Value Ref Range Status 12/19/2016 3.0 (A) 0.86 - 1.14 Final ASSESSMENT / PLAN INR assessment THER Recheck INR In: 4 WEEKS INR Location Clinic Anticoagulation Summary as of 12/19/2016 INR goal 2.0-3.0 Today's INR 3.0 Maintenance plan 10 mg (10 mg x 1) on Mon, Wed, Fri; 7.5 mg (7.5 mg x 1) all other days Full instructions 10 mg on Mon, Wed, Fri; 7.5 mg all other days Weekly total 60 mg No change documented Qing Guy, CHANDLER Plan last modified Susie Murphy (09/26/2016) Next INR check 01/16/2017 Target end date Indefinite Indications 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] Anticoagulation Episode Summary INR check location [facility] Preferred lab Send INR reminders to [facility] Comments 7.5mg & 10mg tabs - devaughn dose // APPT CARD ONLY Anticoagulation Care Providers Provider Role Specialty Phone number Lucero Stevenson MD Pediatrics [phone] See the Encounter Report to view Anticoagulation Flowsheet and Dosing Calendar (Go to Encounters tabin chart review, and find the Anticoagulation Therapy Visit) Qing Guy RN documented in this encounter Plan of Treatment Upcoming Encounters Date Type Specialty Care Team Description 11/15/2022 Virtual Visit Pharm D Haylie Cheung, [facility] [address] [facility] [place] [address] (Lena max) 11/15/2022 Virtual Visit IM/Peds Yane Barraza MD [address] [facility] [place] [address] (Lena max) 03/03/2023 Virtual Visit Neurology Erlinda Barber MD [address] [facility] [address] [place] [address] (Wo rk) documented as of this encounter Procedures Procedure Name Priority Date/Time Associated Diagnosis Comme nts INR POINT OF CARE Routine 12/19/2016 Pulmonary embolism and Results for this infarction (H) procedure are in the results section . documented in this encounter Results (ABNORMAL) INR point of care (12/19/2016) P athologist Signature INR Point of 3.0 (A) 0.86 - [facility] 1.14 [facility] Specimen (Source) Anatomical Location Collection Method / Collectio n Time Received Time / Laterality Volume 12/19/2016 Lucero Stevenson MD LAB - BLOOD ORDERABLES Performing Organization Address City/State/ZIP Code Phon e Number [facility] [address] [place] [address] documented in this encounter Visit Diagnoses Diagnosis Pulmonary embolism and infarction (H) documented in this encounter Care Teams Floor Manager Relationship Specialty Start Date End Date Lucero Stevenson MD PCP - General Pediatrics 10/11/11 04/22/19 Chastity Montero MD MD Dermatology 09/23/[address] [place] [address] [address] [place] [address] documented as of this encounter
--- OUTSIDE RECORDS SUMMARY | 2022-06-15 13:17 | XMS_ITS | Encounter Summary ---
:1945 Author Organization [place] Address [address] [place] [address] Care Team Providers Name Role Phone Lucero Stevenson MD Primary Care Provider [phone] Chastity Montero MD Unavailable [phone] Johnnie Alcocer MD Unavailable Reason for Visit Reason Comments Derm Problem Charlette is here today for a ne w ulcer on her leg. Encounter Details Date Type Department Care Team Description 03/27/2017 Office Visit Health Dermatology Chastity Montero, Dermatitis [address] [facility] 3rd Floor [address] [facility] [address] [place], [place] [phone] [place] [address] (Wo rk) Social History Tobacco [...] as of this encounter Patient Instructions Patient InstructionsYaya Zimmerman MD - 03/27/2017 2:00 PM CDT - Use hydrocortisone 2.5% ointment, followed by non-stick Telfa to left bethea wound - Use hydrocortisone 2.5% ointment to left lower back documented in this encounter Progress Notes Chastity Montero MD - 03/27/2017 2:00 PM CDT [facility] Dermatology Note Dermatology Problem List: 1.1. Nummular [...] cream, Elidel cream, hydrocortisonecream 1%, Balsam of [place], Euxyl K 400, and benzoyl alcohol -Doubtful reactions: Vanicream light, Ombrelle Jenni, Wal-Sporin ointment, Suave shampoo, bactrobanointment, paraben mix, benzoyl peroxide 3. Left lower back ulceration since 08/2012; has healed. 4. Left lower leg venous stasis ulcer: start using hydrocortisone 2.5% ointment. Encounter Date: Mar 27, 2017 CC: Chief Complaint Patient presents with ??? Derm Problem Charlette is here today for a new ulcer on her leg. History of Present Illness: Ms. Charlette Brush is a 72 year old female who presents to acute care clinic for evaluation of a newsore on her left lower leg. She says that she developed the sore after picking at some dry skin on her leg in early February. The spot was not itchy or painful. The sore is not painful now or itchy. It oozes quite a bit. She was seen by wound care on 03/22 and was seen for a lymphedema evaluation on 03/24. She will be starting lymphedema therapy will begin on 03/28 for 5 weeks, four days a week. She would also like to have a sore on her left lower back evaluated today. She had a biopsy of this site on 10/2014 that showed this ulcer was due to prior trauma. She says that the wound has closed, but feels that there is now texture over the previously healed wound that is concerning for her. It is not itchy, painful, and has not re-opened or drain fluid. Patient denies fever, chills. Past Medical History: Patient Active Problem List Diagnosis ??? Essential hypertension, benign ??? Pulmonary embolism and infarction (H) ??? Morbid obesity (H) ??? Other lymphedema ??? CEFERINO (obstructive sleep apnea) ??? CARDIOVASCULAR SCREENING; LDL GOAL LESS THAN 130 ??? Dermatitis, stasis ??? Advanced directives, counseling/discussion ??? Health Long Term ??? Binge eating ??? Eczema ??? Pre-diabetes ??? Vitamin D deficiency ??? 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 order for DME 1: gradient Compression [...] Patient's machine is a [employer] by [employer], [facility] Star Auto A-Flex System 1. 1 Device [...] -There is large 2 x 4.5 cm wound on the left lower bethea that shows venous stasis changes and weepingserous fluid -There is a flat erythematous papule with scaling on the left lower back -No other lesions of concern on areas examined. Impression/Plan: 1. Venous stasis ulcer with overlying area of allergic contact dermatitis: ?? Apply hydrocortisone 2.5% ointment to wound on bethea followed by Telfa ?? Okay for patient to have wound wrapped as long as hydrocortisone is in place. 2. Dermatitis of left lower back: ?? Apply hydrocortisone 2.5% ointment 3. Lymphedema: patient to start lymphedema therapy on 03/28. Follow-up at already scheduled appointment on 04/24/2017. Dr. Montero staffed the patient. Staff Involved: Resident(Yaya Zimmerman)/Staff(as above) Yaya Zimmerman MD, PhD Medicine-Dermatology PGY-2 .I, Chastity Montero MD, saw this patient with the resident and agree with the resident???s findings and plan of care as documented in the resident???s note. documented in this encounter Nursing Notes Yancy Montero CMA - 03/27/2017 2:00 PM CDT Dermatology Rooming Note Charlette Brush's goals for this visit include: Chief Complaint Patient presents with ??? Derm Problem Charlette is here today for a new ulcer on her leg. ABBI Fine documented in this encounter Plan of Treatment Upcoming Encounters Date Type Specialty Care Team Description 11/15/2022 Virtual Visit Pharm D Haylie Cheung, [facility] [address] [facility] [place] [address] (Wo rk) 11/15/2022 Virtual Visit IM/Peds Yane Barraza MD [address] [facility] [place] [address] (Wo rk) 03/03/2023 Virtual Visit Neurology Erlinda Barber MD [address] [facility] 295 [place] [address] (Wo rk) documented as of this encounter Visit Diagnoses Diagnosis Dermatitis Contact dermatitis and other eczema, due to unspecified cause documented in this encounter Care Teams [employer] Executive Director Relationship Specialty Start Date End Date Lucero Stevenson MD PCP - General Pediatrics 10/11/11 04/22/19 Chastity Montero MD MD Dermatology 09/23/14 [address] [facility] [address] [place] [address] Johnnie Alcocer MD Surgeon General Surgery 03/23/17 [address] [facility] [address] [place], [place] [id number] documented as of this encounter
--- OUTSIDE RECORDS SUMMARY | 2022-06-15 13:17 | XMS_ITS | Encounter Summary ---
:1945 Author Organization [facility] Address [address] [place] [address] Care Team Providers Name Role Phone Lucero Stevenson MD Primary Care Provider [phone] Chastity Montero MD Unavailable [phone] Reason for Referral Specialty Diagnoses / Procedures Referred By Contact Refer red To Contact Lucero Stevenson MD [address] [address] Referral ID Status Reason Start Date Expiration Date Visits Requ ested Visits Authorized Scheduling Instructions ANTICOAGULATION CLINIC COLLABORATIVE AL ACTICE AGREEMENT The following represents a collaborative practice agreement among the physicians of the Clinic and staff of the Anticoagulat ion Clinic Service ([facility]) Physicians shall: 1. Refer patients requiring anticoagulat ion to a specialty service staffed by personnel of Pharmacy Services and super vised by Clinic physicians. 2. Respond to questions and referrals fr pharmacy staff regarding delinquent or difficult patients. 3. Inform the [facility] staff when a new patie nt is [...] sergio cated. 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 (Work) Social History Tobacco Use Types Packs/Day Years [...] Sign Reading Time Taken Comments Blood Pressure 112/70 01/03/2017 11:05 AM radial BP ta larry CDT Pulse 60 01/03/2017 11:05 AM CDT Temperature 36.7 ??C (98.1 ??F) 01/03/2017 11:05 AM CDT Respiratory Rate - - Oxygen Saturation 95% 01/03/2017 11:05 AM CDT Inhaled Oxygen Concentration - - Weight 183.9 kg (405 lb 8 oz) 01/03/2017 11:05 AM CDT Height 167.6 cm (5' 6) 01/03/2017 11:05 AM CDT Body Mass Index 65.45 01/03/2017 11:05 AM CDT documented in this encounter Patient Instructions Patient InstructionsBee Hensley Y, FRET SAW OPERATOR - 01/03/2017 10:51 AM CDT Preventive Health Recommendations Female Ages 65 + Yearly exam: ??? See your health care provider every year in order to o Review health changes. o Discuss preventive care. o Review your medicines if your doctor has prescribed any. ??? You no longer need a yearly Pap test unless you've had an abnormal Pap test in the past 10 years. If you have vaginal symptoms, such as bleeding or discharge, be sure to talk with your provider about a Pap test. ??? Every 1 to 2 years, have a mammogram. If you are over 69, talk with your health care provider about whether or not you want to continue having screening mammograms. ??? Every 10 years, have a colonoscopy. Or, have a yearly FIT test (stool test). These exams will check for colon cancer. ??? Have a cholesterol test every 5 years, or more often if your doctor advises it. ??? Have a diabetes test (fasting glucose) every three years. If you are at risk for diabetes, you should have this test more often. ??? At age 65, have a bone density scan (DEXA) to check for osteoporosis (brittle bone disease). Shots: ??? Get a flu shot each year. ??? Get a tetanus shot every 10 years. ??? Talk to your doctor about your pneumonia vaccines. There are now two you should receive - Pneumovax (PPSV 23) and Prevnar (PCV 13). ??? Talk to your doctor about the shingles vaccine. ??? Talk to your doctor about the hepatitis B vaccine. Nutrition: ??? Eat at least 5 servings of fruits and vegetables each day. ??? Eat whole-grain bread, whole-wheat pasta and brown rice instead of white grains and rice. ??? Talk to your provider about Calcium and Vitamin D. Lifestyle ??? Exercise at least 150 minutes a week (30 minutes a day, 5 days a week). This will help you control your weight and prevent disease. ??? Limit alcohol to one drink per day. ??? No smoking. ??? Wear sunscreen to prevent skin cancer. ??? See your dentist twice a year for an exam and cleaning. ??? See your eye doctor every 1 to 2 years to screen for conditions such as glaucoma, macular degeneration and cataracts. documented in this encounter Progress Notes Lucero Stevenson MD - 01/03/2017 11:00 AM CDT SUBJECTIVE: Charlette Brush is a 71 year old female who presents for Preventive Visit. Are you in the first 12 months of your Medicare coverage? No Physical Annual: Getting at least 3 servings of Calcium per day:: Yes Bi-annual eye exam:: Yes Dental care twice a year:: Yes Sleep apnea or symptoms of sleep apnea:: Sleep apnea Diet:: Low salt and Low fat/cholesterol Frequency of exercise:: 2-3 days/week Duration of exercise:: Less than 15 minutes Taking medications regularly:: Yes Medication side effects:: None Additional concerns today:: YES (discuss walker for winter months) 1) is using a cane for walking, feels balance is harder. Is doing ok with tripod cane, but wonders about needing a walker for winter months. 2) htn: Bp well controlled here, not checking at home. No headaches or chest pain. Very limited mobility to evaluate lozano/chest pain with exertion. 3) sleep appt in next 2 weeks. Last 2 have showed very good compliance. COGNITIVE SCREEN 1) Repeat 3 items (Banana, Saltese, Chair) 2) Clock draw: NORMAL 3) 3 item recall: Recalls 3 objects Results: 3 items recalled: COGNITIVE IMPAIRMENT LESS LIKELY Mini-CogTM Copyright S Le. Licensed by the author for use in [facility]; reprintedwith permission (kameron@[email or web address]). All rights reserved. Reviewed and updated as needed this visit by clinical staff Tobacco Allergies Meds Med Hx Surg Hx Fam Hx Soc Hx Reviewed and updated as needed this visit by Provider Social History Substance Use Topics ??? Smoking status: Never Smoker ??? Smokeless tobacco: Never Used ??? Alcohol use No The patient does not drink >3 drinks per day nor >7 drinks per week. Hypertension Follow-up ?? Outpatient blood pressures are not being checked. ?? Low Salt Diet: no added salt, low salt Today's PHQ-2 Score: PHQ-2 (??1999 Pfizer) 01/03/2017 Q1: Little interest or pleasure in doing things Not at all Q2: Feeling down, depressed or hopeless Not at all PHQ-2 Score 0 Do you feel safe in your environment - YES Do you have a Health Care Directive?: No: Advance care planning was reviewed with patient; patient declined at this time. Current providers sharing in care for this patient include: Patient Care Team: Lucero Stevenson MD as PCP - General (Pediatrics) Chastity Montero MD as MD (Dermatology) ?? Hearing impairment: No, pt has hearing aid ?? Ability to successfully perform activities of daily living: Yes, no assistance needed ?? Fall risk: Fallen 2 or more times in the past year?: No Any fall with injury in the past year?: No ?? Home safety: none identified The following health maintenance items are reviewed in Epic and correct as of today: Health Maintenance Topic Date Due ??? MEDICARE ANNUAL WELLNESS VISIT 12/31/2015 ??? BMP Q1 YR 12/31/2016 ??? MICROALBUMIN Q1 YEAR 12/31/2016 ??? A1C Q1 YR 12/31/2016 ??? FALL RISK ASSESSMENT 12/31/2016 ??? OP ANNUAL INR REFERRAL 01/18/2017 ??? INFLUENZA VACCINE (SYSTEM ASSIGNED) 03/17/2017 ??? DEXA Q5 YR 12/13/2017 ??? MAMMO Q2 YR 2018 ??? LIPID MONITORING Q5 YEARS 12/31/2020 ??? ADVANCE DIRECTIVE PLANNING Q5 YRS 01/03/2022 ??? TETANUS Q10 YR 12/30/2024 ??? COLONOSCOPY Q10 YR 01/13/2025 ??? PNEUMOCOCCAL Completed ??? HEPATITIS C SCREENING Completed Pneumonia Vaccine:utd Mammogram Screening: Patient over age 50, mutual decision to screen reflected in health maintenance. ROS: Constitutional, HEENT, cardiovascular, pulmonary, gi and gu systems are negative, except as otherwise noted. Problem list, Medication list, Allergies, and Medical/Social/Surgical histories reviewed in EPIC andupdated as appropriate. OBJECTIVE: BP 112/70 (BP Location: Right arm, Patient Position: Chair, Cuff Size: Adult Large) Pulse 60 Temp 98.1 ??F (36.7 ??C) (Tympanic) Ht 5' 6 (1.676 m) Wt (!) 405 lb 8 oz (183.9 kg) SpO2 95% BMI 65.45 kg/m2 Estimated body mass index is 65.45 kg/(m^2) as calculated from the following: Height as of this encounter: 5' 6 (1.676 m). Weight as of this encounter: 405 lb 8 oz (183.9 kg). EXAM: GENERAL: healthy, alert and no distress EYES: Eyes grossly normal to inspection, PERRL and conjunctivae and sclerae normal HENT: ear canals and TM's normal, nose and mouth without ulcers or lesions NECK: no adenopathy, no asymmetry, masses, or scars and thyroid normal to palpation RESP: lungs clear to auscultation - no rales, rhonchi or wheezes BREAST: normal without masses, tenderness or nipple discharge and no palpable axillary masses or adenopathy CV: regular rate and rhythm, normal S1 S2, no S3 or S4, no murmur, click or rub, no peripheral edemaand peripheral pulses strong ABDOMEN: soft, nontender, no hepatosplenomegaly, no masses and bowel sounds normal MS: no gross musculoskeletal defects noted, no edema SKIN: no suspicious lesions or rashes NEURO: Normal strength and tone, mentation intact and speech normal PSYCH: mentation appears normal, affect normal/bright ASSESSMENT / PLAN: (Z00.00) Routine general medical examination at a health care facility (primary encounter diagnosis) -no further bone density monitoring -colonoscopy utd -imm utd (I10) Essential hypertension, benign -bp well controlled -no side effects from meds -no change to medications Plan: Basic metabolic panel (Ca, Cl, CO2, Creat, Gluc, K, Na, BUN), Albumin Random Urine Quantitative, triamterene-hydrochlorothiazide (DYAZIDE) 37.5-25 MG per capsule, atenolol (TENORMIN) 25 MG tablet, losartan (COZAAR) 100 MG tablet (E66.01) Morbid obesity, unspecified obesity type (H) -discussed diet, exercise and weight loss (R73.03) Pre-diabetes -due for fasting labs Plan: Basic metabolic panel (Ca, Cl, CO2, Creat, Gluc, K, Na, BUN), Hemoglobin A1c (M15.8) Other osteoarthritis involving multiple joints -dme prescription written for wheeled walker Plan: order for DME (G47.33) CEFERINO (obstructive sleep apnea) -continue follow up with sleep clinic (Z79.01) 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 Practitioner is supportive of decision. COUNSELING: Reviewed preventive health counseling, as reflected in patient instructions Regular exercise Healthy diet/nutrition Estimated body mass index is 65.45 kg/(m^2) as calculated from the following: Height as of this encounter: 5' 6 (1.676 m). Weight as of this encounter: 405 lb 8 oz (183.9 kg). Weight management plan: Discussed healthy diet and exercise guidelines and patient will follow up in12 months in clinic to re-evaluate. reports that she has never smoked. She [...] of care and provided an AVS. The Intermediate Care Plan ( asthma action plan,low back pain action plan, and migraine action plan) for Charlette meets the Care Plan requirement. ThisCare Plan has been established and reviewed with the Patient. Counseling Resources: ATP IV Guidelines Pooled Cohorts Equation Calculator Breast Cancer Risk Calculator FRAX Risk Assessment ICSI Preventive Guidelines Dietary Guidelines for Americans, 2009 USDA's MyPlate ASA Prophylaxis Lung CA Screening Lucero Stevenson MD [facility] Answers for HPI/ROS submitted by the patient on 01/03/2017 PHQ-2 Score: 0 documented in this encounter Nursing Notes Bee Hensley CMA - 01/03/2017 11:00 AM CDT Chief Complaint Patient presents with ??? Wellness Visit Initial BP 112/70 (BP Location: Right arm, Patient Position: Chair, Cuff Size: Adult Large) Pulse 60 Temp 98.1 ??F (36.7 ??C) (Tympanic) Ht 5' 6 (1.676 m) Wt (!) 405 lb 8 oz (183.9 kg) SpO2 95% BMI 65.45 kg/m2 Estimated body mass index is 65.45 kg/(m^2) as calculated from the following: Height as of this encounter: 5' 6 (1.676 m). Weight as of this encounter: 405 lb 8 oz (183.9 kg). Medication Reconciliation: complete Bee Hensley CMA documented in this encounter Plan of Treatment Upcoming Encounters Date Type Specialty Care Team Description 11/15/2022 Virtual Visit Pharm D Haylie Cheung, [facility] [address] [facility] [place] [address] (Lena max) 11/15/2022 Virtual Visit IM/Peds Yane Barraza MD [address] [facility] [place] [phone] (Lena max) 03/03/2023 Virtual Visit Neurology Erlinda Barber MD [address] [facility] [address] [place], [place] [address] (Wo rk) Scheduled Referrals Name Type Priority Associated Diagnoses Order S chedule INR CLINIC REFERRAL Referral Routine ocean transportation intermediary (current) u se of Ordered: 01/03/2017 anticoagulants documented as of this encounter Procedures Procedure Name Priority Date/Time Associated Diagnosis Comme nts ALBUMIN RANDOM URINE Routine 01/03/2017 12:00 Essential Res ults for this QUANTITATIVE PM CDT hypertension, benign procedu re are in the results section. HEMOGLOBIN A1C Routine 01/03/2017 11:58 Pre-diabetes Results f or this AM CDT procedure are i n the results section. BASIC METABOLIC Routine 01/03/2017 11:58 Essential Results for this PANEL AM CDT hypertension, be nign procedure are in Pre-diabetes the results section. CBC WITH PLATELETS Routine 01/03/2017 11:58 ocean transportation intermediary (current ) Results for this AM CDT use of anticoagulants proced ure are in the results section. documented in this encounter Results Albumin Random Urine Quantitative (01/03/2017 12:00 PM CDT) [facility] Method Time Signature Creatinine 35 mg/dL [place] Urine [facility] Albumin Urine <5 mg/L [place] mg/L [facility] Albumin Urine Unable to 0 - 25 [place] mg/g Cr calculate due mg/g Cr [facility] to low value HOSPITAL Specimen Anatomical Collection Method Collection Time Receive d Time (Source) Location / / Volume Laterality Urine specimen 01/03/2017 12:00 7 (specimen) PM CDT 12:02 PM CDT Lucero Stevenson MD LAB - URINE ORDERABLES Performing Organization Address City/State/ZIP Code Phon e Number M [facility] [address] [address] [facility] [address] [address], U [phone] CBC with platelets (01/03/2017 11:58 AM CDT) P athologist Signature WBC 4.7 4.0 - 11.0 [place] 10e9/L [facility] YARELIS RBC Count 4.35 3.8 - 5.2 [place] 10e12/L [facility] Hemoglobin 14.0 11.7 - [facility] 15.7 g/dL [facility] Hematocrit 41.2 35.0 - [facility] 47.0 % [facility] MCV 95 78 - 100 [place] fl [facility] MCH 32.2 26.5 - [place] 33.0 pg [facility] MCHC 34.0 31.5 - [facility] 36.5 g/dL [facility] RDW 12.8 10.0 - [facility] 15.0 % [facility] Platelet Count 200 150 - 450 [place] 10e9/L [facility] Specimen Anatomical Collection Method Collection Time Receive d Time (Source) Location / / Volume Laterality Blood specimen 01/03/2017 11:58 7 (specimen) AM CDT 12:00 PM CDT Lucero Stevenson MD LAB - BLOOD ORDERABLES Performing Organization Address City/[facility]/ZIP [facility] Phon e Number [address] [address] [phone] Hemoglobin A1c (01/03/2017 11:58 AM CDT) P athologist Signature Hemoglobin A1C 5.2 4.3 - 6.0 [place] % [facility] Specimen Anatomical Collection Method Collection Time Receive d Time (Source) Location / / Volume Laterality Blood specimen 01/03/2017 11:58 7 (specimen) AM CDT 12:00 PM CDT Lucero Stevenson MD LAB - BLOOD ORDERABLES Performing Organization Address City/[facility]/ZIP Code Phon e Number [facility] [address] [place] [phone] Basic metabolic panel (Ca, Cl, CO2, Creat, Gluc, K, Na, BUN) (01/03/2017 11:58 AM CDT) P athologist Signature Sodium 140 133 - 144 [place] mmol/L [facility] Potassium 4.0 3.4 - 5.3 [place] mmol/L [facility] Chloride 107 94 - 109 [place] mmol/L [facility] Carbon Dioxide 21 20 - 32 [place] mmol/L [facility] Anion Gap 12 3 - 14 [place] mmol/L [facility] Glucose 88 70 - 99 [place] mg/dL [facility] Urea Nitrogen 21 7 - 30 [place] mg/dL [facility] Creatinine 0.66 0.52 - [place] 1.04 mg/dL [facility] GFR Estimate 88 >60 [place] mL/min/1.7 CLINICS m2 [facility] Comment: Non GFR Calc GFR Estimate If >90 >60 mL/min/1.7m2 [facility] Black GFR Calc [place] [facility] Calcium 9.3 8.5 - 10.1 mg/dL [place] CLIN ICS [facility] Specimen Anatomical Collection Method Collection Time Receive d Time (Source) Location / / Volume Laterality Blood specimen 01/03/2017 11:58 7 (specimen) AM CDT 12:00 PM CDT Lucero Stevenson MD LAB - BLOOD ORDERABLES Performing Organization Address City/State/ZIP Code Phon e Number [facility] [address] [place] [address] documented in this encounter Visit Diagnoses Diagnosis Routine general medical examination at a health care facility - Primary Essential hypertension, benign Morbid obesity, unspecified obesity type (H) Pre-diabetes Other abnormal glucose Other osteoarthritis involving multiple joints CEFERINO (obstructive sleep apnea) Obstructive sleep apnea (adult) (pediatr ic) ocean transportation intermediary (current) use of anticoagulant s Long-term (current) use of anticoagulant s documented in this encounter Care Teams Bioprocessing Manufacturing Technician Relationship Specialty Start Date End Date Lucero Stevenson MD PCP - General Pediatrics 10/11/11 04/22/19 Chastity Montero MD MD Dermatology 09/23/[address] [place] [address] [address] [place] [address] documented as of this encounter
--- OUTSIDE RECORDS SUMMARY | 2022-06-15 13:17 | XMS_ITS | Encounter Summary ---
:1945 Author Organization [place] Address [address] [place] [address] Care Team Providers Name Role Phone Lucero Stevenson MD Primary Care Provider [phone] Chastity Montero MD Unavailable [phone] Johnnie Alcocer MD Unavailable Reason for Visit Rehab Therapy Integrated Services (Routine) - Closed Specialty Diagnoses / Procedures Referred By Contact Refer red To Contact Diagnoses MEDICARE//Lymphedema of both lower extremities [facility] Procedures LYMPHEDEMA EVALUATION [facility] [place] [address] [facility] [address] [place] [address] Phone: Fax: Referral ID Status Reason Start Date Expiration Date Visits V isits Requested Authorized EH-PT/OT/TITLE CAMERA OPERATOR Closed 03/23/2017 07/16/[phone] [id number]) Encounter Details Date Type Department Care Team Description 03/24/2017 Hospital Encounter M [facility] Kelly Chele Ly mphedema of both lower extremities (Primary Dx); Rehabilitation A Difficulty dressing self Services [place] [facility] [address] [place] [address] [facility] [phone] [place] [address] Social History Tobacco Use Types [...] 05/03/2021 organizations such as lutheran groups, unions, fraNewsCastic or athletic groups, or school groups? How [...] machine is a Respi ronics by [employer], [facility] [employer] A-Flex System 1. ORDER FOR [...] 1 11/1405/20/2017 MG tabletIndications: directed by INR shelter current use of clinic anticoagulant therapy warfarin (COUMADIN) 7.5 Take 7.5mg TTSS or 50 tablet 1 11/1405/22/2017 MG tabletIndications: as directed by INR adjunct faculty for medical terminology current use of Clinic. anticoagulant therapy documented as of this encounter Progress Notes Chele Mendoza - 03/24/2017 11:59 PM CDT 03/24/17 1200 Signing Clinician's Name / Credentials Signing clinician's name / credentials Omkar Mendoza OTR/L; CLT Session Number Session Number 07/26, 08/05 (medicare primary; BCBS secondary) Progress/Recertification Progress Note Due (10th visit) Recertification Due 06/02/17 Self Care Self Care Current Status, G8987 (eval/re-eval & every progress note) CK: 40-59% impairment Current Self Care Modifier Rationale clinical judgement Self Care Goal, G8988 (eval/re-eval & every [...] I with LB dressing Target date 06/02/17 System Outcome Measures Lymphedema Life Impact Scale (score range 0-72). A higher score indicates greater impairment. 4 Manual Therapy Minutes 28 Minutes Skilled Intervention education Patient Response Pt reports understanding education provided and projected POC Treatment Detail The patient participated in verbal education with written resources issued regarding the physiology/pathophysiology of the lymphatic system, treatment options, and skin care precautions to prevent infection/exacerbation. The patient participated and was instructed in the causes and precautions for lymphedema as well as goals for treatment. Risks and benefits have been explained to the patient. Pt familiar to CDT treatment but has not engaged in over 10 years. Pt educated on need forconsistency and daily application of CDT for long term care administrator effective treatment. Pt reports issues like ne dano :getting her zipper stockings replaced and does not have support at home. Pt does not wrap herself but displays flexibility to pamela her own GCB once asked to reach her feet sitting EOB. Flexitouch discussed as possible home support pt could benefit from with lack of assistance. Velcro wraps alsodiscussed as means for reductions and daily management if self wrapping proves to be unfeasible whenpt attempts. Utility of MLD and muscle pumpign discussed along with prevelance of infections. pts open skin of cocnern 2/2 prevelance of cellulitis in lymphedema community; pt advised to keep clean, covered, and educated on symptoms to monitor. Education Learner Patient Readiness Acceptance Method Explanation Response Verbalizes understanding Plan Plan for next session full measurements; start GCB ed to knee but pt to wrap thighs at home; ex's Total Session Time Timed Code Treatment Minutes 28 Total Treatment Time (sum of timed and untimed services) 66 Johnnie Alcocer MD - 03/24/2017 12:47 PM CDT Images from the original note were not included. [facility] OUTPATIENT OCCUPATIONAL THERAPY EDEMA EVALUATION PLAN OF TREATMENT FOR OUTPATIENT REHABILITATION (COMPLETE FOR INITIAL CLAIMS ONLY) Patient's Last Name, First Name, Charlette Brand Provider???s Name: [facility] Start of Care Date: 03/24/17 Onset Date: 03/22/17 Type: OT Medical Diagnosis: lymphedema Therapy Diagnosis: edema; lymphedema; decrease dI with LB ADL's Visits from SOC: 1 __ Plan of Treatment/Functional Goals: Manual lymph drainage, Gradient compression bandaging, Fit for compression garment, Exercises, Precautions to prevent infection / exacerbation, Education, Skin care / precautions, Myofascial release, Home management program development GOALS 1. Goal description: In order to improve functional mobility, LB dressing I, and functional transfers, by the completion of intensive treatment, patient and/or caregiver will: Target date: 06/02/17 2. Goal description: tolerate gradient compression bandaging/wearing compression garments 23 hrs/dayto prevent re-acccumulation of extracellular fluid Target date: 06/02/17 3. Goal description: demonstrate independence in applying gradient compression bandages to build I with home management of BLE lymphedema for imporved walking, LB dressing, and functional transfers Target date: 06/02/17 4. Goal description: demonstrate independence in performing prescribed exercises to facilate the lymph system an dmuscle pumping systems for max reductions needed to increase I with LB dressing and promote increased I with transfers Target date: 06/02/17 5. Goal description: be independent in donning/doffing, wearing schedule, and care of compression garments for I building with home management of BLE lymphedmea needed to aid improvements in mobility, functional transfers, and LB dressing Target date: 06/02/17 6. Goal description: Display total BLE volume reduction 1L+ for reductions needed to aid skin healing, increased I with transfers, and I with LB dressing Target date: 06/02/17 7. 8. Treatment frequency: (4x/wk x 5 weeks, then 0x/wk x 3 weeks, then 1x/wk x 1 week) Treatment duration: see above Chele Mendoza I CERTIFY THE NEED FOR THESE SERVICES FURNISHED UNDER THIS PLAN OF TREATMENT AND WHILE UNDER MY CARE (Physician co-signature of this document indicates review and certification of the therapy plan). Certification date from: 03/24/17 Certification date to: 06/02/17 Referring physician: Dr Alcocer Initial Assessment See [facility] Evaluation- Start of care: 03/24/17 Chele Mendoza - 03/24/2017 12:46 PM CDT 03/24/17 1200 Signing Clinician's Name / Credentials Signing clinician's name / credentials Omkar Mendoza OTR/L; CLT Session Number Session Number 07/26, 08/05 (medicare primary; BCBS secondary) Progress/Recertification Progress Note Due (10th visit) Recertification Due 06/02/17 Self Care Self Care Current Status, G8987 (eval/re-eval & every progress note) CK: 40-59% impairment Current Self Care Modifier Rationale clinical judgement Self Care Goal, G8988 (eval/re-eval & every [...] I with LB dressing Target date 06/02/17 System Outcome Measures Lymphedema Life Impact Scale (score range 0-72). A higher score indicates greater impairment. 4 Manual Therapy Minutes 28 Minutes Skilled Intervention education Patient Response Pt reports understanding education provided and projected POC Treatment Detail The patient participated in verbal education with written resources issued regarding the physiology/pathophysiology of the lymphatic system, treatment options, and skin care precautions to prevent infection/exacerbation. The patient participated and was instructed in the causes and precautions for lymphedema as well as goals for treatment. Risks and benefits have been explained to the patient. Pt familiar to CDT treatment but has not engaged in over 10 years. Pt educated on need forconsistency and daily application of CDT for long term care administrator effective treatment. Pt reports issues like ne dano :getting her zipper stockings replaced and does not have support at home. Pt does not wrap herself but displays flexibility to pamela her own GCB once asked to reach her feet sitting EOB. Flexitouch discussed as possible home support pt could benefit from with lack of assistance. Velcro wraps alsodiscussed as means for reductions and daily management if self wrapping proves to be unfeasible whenpt attempts. Utility of MLD and muscle pumpign discussed along with prevelance of infections. pts open skin of cocnern 2/2 prevelance of cellulitis in lymphedema community; pt advised to keep clean, covered, and educated on symptoms to monitor. Education Learner Patient Readiness Acceptance Method Explanation Response Verbalizes understanding Plan Plan for next session full measurements; start GCB ed to knee but pt to wrap thighs at home; ex's Total Session Time Timed Code Treatment Minutes 28 Total Treatment Time (sum of timed and untimed services) 66 Chele Mendoza - 03/24/2017 12:40 PM CDT 03/24/17 1200 Quick Adds Quick Adds Certification Rehab Discipline Discipline OT Type of Visit Type of visit Initial Edema Evaluation General Information Start of care 03/24/[address] Alcocer Orders Evaluate and treat as indicated (Assess for compression pump vs zippered compression stocking) Order date 03/22/17 Medical diagnosis edema; lymphedema; wound Onset of illness / date of surgery 03/22/17 Edema onset 03/22/17 Affected body parts LUE;LLE;RUE;RLE;Trunk (BLE focus) Edema etiology Chronic Venous Insufficiency;Congenital;DVT (PE result of possible DVT) Edema etiology comments Pt reports no history cancer care or cardiovascular disease other than suspicions of venous stasis but no official testing or diagnosis for CVI noted via pt or in chart. No discoloration in lower legs other than recent reddened region of LLE anterior calf with light weeping of serous fluid following pt picking at a scab. Pt reports swelling started at time of puberty and has grown over the years. She recieved CDT treatment in past (last time 10+ years ago) and has not been able to keep up with compression and CDT program per her report. Appears possible that pt has a primarylymphedema 2/2 time when swelling developed and symptom presentation. Pertinent history of current problem (PT: include personal factors and/or comorbidities that impact the POC; OT: include additional occupational profile info) Pt with PMH significant for HTN, lymphedema, and PE. Pt unable to report where suspicion PE started. Surgical / medical history reviewed Yes Prior level of functional mobility Mod I Prior treatment Complete decongestive therapy;Compression garments;Elevation;Diuretics;MLD;Gradient compression bandaging Community support (none) Patient role / employment history Retired;Disabled Living environment [place] [facility] Fall Screening Fall screen completed by OT Per patient, fall 2 or more times in past year? No Per patient, fall with injury in past year? No Is patient a fall risk? No System Outcome Measures Lymphedema Life Impact Scale (score range 0-72). A higher score indicates greater impairment. 4 Subjective Report Patient report of symptoms unable to fit into LB clothing/shoes; struggle swith sit-stand transfers/functional transfers Patient / Family Goals Patient / family goals statement To reduce BLE and help open skin heal Pain Patient currently in pain No Cognitive Status Orientation Orientation to person, place and time Level of consciousness Alert Follows commands and answers questions 100% of the time Personal safety and judgement Intact Memory Intact Edema Exam / Assessment Skin condition Pitting;Non-pitting;Dryness Skin condition comments 2-3+ pitting and fibrotic tissue throughout BLE ankle- knee; bulbous non pitting swelling in B thighs and hips Pitting 2+;3+ Pitting location BLE Capillary refill Symmetrical Dorsal pedal pulse (unable to palpate; no signs ischemia noted) Stemmer sign Positive;Negative Ulceration (small open skin at distal anterior/lateral LLE bethea region) Girth Measurements Girth Measurements (will obtain upon return for services) Range of Motion ROM comments WFL Strength Strength comments NT'd Activities of Daily Living Activities of Daily Living I-Mod I Bed Mobility Bed mobility I Gait / Locomotion Gait / Locomotion Mod I Sensory Sensory perception comments no neuropathy reported Coordination Coordination Gross motor coordination appropriate Muscle Tone Muscle tone No deficits were identified Planned Edema Interventions Planned edema interventions Manual lymph drainage;Gradient compression bandaging;Fit for compressiongarment;Exercises;Precautions to prevent infection / exacerbation;Education;Skin care / precautions;Myofascial release;Home management program development Clinical Impression Criteria for skilled therapeutic intervention met Yes Therapy diagnosis edema; lymphedema; decrease dI with LB ADL's Influenced by the following impairments / conditions Stage 2;Primary Lymphedema Assessment of Occupational Performance 5 or more Performance Deficits Identified Performance Deficits LB dressing/shoes; decreased I with sit-stand; decreased I with car transfers; decrease dI with toilet transfers; decrease dfunctional mobility Clinical Decision Making (Complexity) High complexity Treatment frequency (4x/wk x 5 weeks, then 0x/wk x 3 weeks, then 1x/wk x 1 week) Treatment duration see above Patient / family and/or staff in agreement with plan of care Yes Risks and benefits of therapy have been explained Yes Clinical impression comments Pt will benefit from skilled lymphedema services to aid reductions in BLE lymphedema to help improve functional mobility and balance, increase I with LB cares, promote increased stability and I with sit- stand and toilet transfers. Goals Edema Eval Goals 1;2;3;4;5;6 Goal 1 [...] I with LB dressing Target date 06/02/17 Total Evaluation Time Total evaluation time 38 Certification Certification date from 03/24/17 Certification date to 06/02/17 Medical Diagnosis lymphedema Certification I certify the need for these services furnished under this plan of treatment and whileunder my care. (Physician co-signature of this document indicates review and certification of the therapy plan). documented in this encounter Miscellaneous Notes Addendum Note - Chele Mendoza - 03/24/2017 11:59 PM CDTEncounter addended by: Chele Mendoza, OT on: 04/21/2017 10:11 AM
Actions taken: Sign clinical note, Flowsheet accepted documented in this encounter Plan of Treatment Upcoming Encounters Date Type Specialty Care Team Description 11/15/2022 Virtual Visit Pharm D Haylie Cheung, [facility] [address] [place] [address] (Wo rk) 11/15/2022 Virtual Visit IM/Peds Yane Barraza MD [address] [facility] [address] [facility] [place] [address] (Wo rk) 03/03/2023 Virtual Visit Neurology Erlinda Barber MD [address] [facility] [address] [place], [place] [address] (Wo rk) documented as of this encounter Visit Diagnoses Diagnosis Lymphedema of both lower extremities - P rimary Difficulty dressing self documented in this encounter Care Teams Ingredient Mixer Relationship Specialty Start Date End Date Lucero Stevenson MD PCP - General Pediatrics 10/11/11 04/22/19 Chastity Montero MD MD Dermatology 09/23/14 [address] [facility] [address] [place], [place] [address] Johnnie Alcocer MD Surgeon General Surgery 03/23/[address] [place], [place] [id number] documented as of this encounter
--- OUTSIDE RECORDS SUMMARY | 2022-06-15 13:17 | XMS_ITS | Encounter Summary ---
:1945 Author Organization [place] Address [address] [place] [address] Care Team Providers Name Role Phone Lucero Stevenson MD Primary Care Provider [phone] Chastity Montero MD Unavailable [phone] Encounter Details Date Type Department Care Team Description 10/20/2016 Anticoagulation Therapy [facility] Pulmonary embolism Visit Clinic [place] and infarction (H) [address] [facility] [address] [place] [...] encounter Progress Notes Qing Guy RN - 10/20/2016 1:13 PM CDT ANTICOAGULATION FOLLOW-UP CLINIC VISIT Patient Name: Charlette Brush Date: 10/20/2016 Contact Type: Face to Face SUBJECTIVE: Patient Findings Positives No Problem Findings OBJECTIVE INR Protime Date Value Ref Range Status 10/20/2016 2.7 (A) 0.86 - 1.14 Final ASSESSMENT / PLAN INR assessment THER Recheck INR In: 4 WEEKS INR Location Clinic Anticoagulation Summary as of 10/20/2016 INR goal 2.0-3.0 Today's INR 2.7 Maintenance plan 10 mg (10 mg x 1) on Mon, Wed, Fri; 7.5 mg (7.5 mg x 1) all other days Full instructions 10 mg on Mon, Wed, Fri; 7.5 mg all other days Weekly total 60 mg No change documented Qing Guy, [place] Plan last modified uSsie Murphy (09/26/2016) Next INR check 11/21/2016 Target end date Indefinite Indications 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] Anticoagulation Episode Summary INR check location [facility] Preferred lab Send INR reminders to [facility] Comments 7.5mg & 10mg tabs - devaughn dose // APPT CARD ONLY Anticoagulation Care Providers Provider Role Specialty Phone number Lucero Stevenson MD Pediatrics [phone] See the Encounter Report to view Anticoagulation Flowsheet and Dosing Calendar (Go to Encounters tabin chart review, and find the Anticoagulation Therapy Visit) Qing Guy RN documented in this encounter Plan of Treatment Upcoming Encounters Date Type Specialty Care Team Description 11/15/2022 Virtual Visit Pharm D Haylie Cheung, [facility] [address] [facility] [place] [address] ([place]) 11/15/2022 Virtual Visit IM/Peds Yane Barraza MD [address] [facility] [place] [address] ([place]) 03/03/2023 Virtual Visit Neurology Erlinda Barber MD [address] [facility] [address] [place] [address] (Wo rk) documented as of this encounter Procedures Procedure Name Priority Date/Time Associated Diagnosis Comme nts INR POINT OF CARE Routine 10/20/2016 Pulmonary embolism and Results for this infarction (H) procedure are in the results section . documented in this encounter Results (ABNORMAL) INR point of care (10/20/2016) athologist Signature INR Point of 2.7 (A) 0.86 - [facility] 1.14 [facility] Specimen (Source) Anatomical Location Collection Method / Collectio n Time Received Time / Laterality Volume 10/20/2016 Lucero Stevenson MD LAB - BLOOD ORDERABLES Performing Organization Address City/State/ZIP Code Phon e Number [facility] [address] [place] [address] documented in this encounter Visit Diagnoses Diagnosis Pulmonary embolism and infarction (H) documented in this encounter Care Teams Loss Claim Clerk Relationship Specialty Start Date End Date Lucero Stevenson MD PCP - General Pediatrics 10/11/11 04/22/19 Chastity Montero MD MD Dermatology 09/23/[address] [place] [address] [address] [place] [address] documented as of this encounter
--- OUTSIDE RECORDS SUMMARY | 2022-06-15 13:18 | XMS_ITS | Encounter Summary ---
:1945 Author Organization [place] Address [address] [place] [address] Care Team Providers Name Role Phone Lucero Stevenson MD Primary Care Provider [phone] Chastity Montero MD Unavailable [phone] Encounter Details Date Type Department Care Team Description 12/21/2015 Anticoagulation Therapy [facility] Pulmonary embolism and infarction (H) (Primary Dx); Visit [place] Long-term (current) use of a nticoagulants [facility] [place] [address] Social History Tobacco Use Types Packs/Day Years [...] encounter Progress Notes Qing Guy RN - 12/21/2015 11:18 AM CDT ANTICOAGULATION FOLLOW-UP CLINIC VISIT Patient Name: Charlette Brush Date: 12/21/2015 Contact Type: Face to Face SUBJECTIVE: Patient Findings Positives No Problem Findings OBJECTIVE INR PROTIME Date Value Ref Range Status 12/21/2015 2.0 Final ASSESSMENT / PLAN INR assessment THER Recheck INR In: 4 WEEKS INR Location Clinic Anticoagulation Summary as of 12/21/2015 INR goal 2.0-3.0 Selected INR 2.0 (12/21/2015) Maintenance plan 5 mg (10 mg x 0.5) on Mon; 7.5 mg (7.5 mg x 1) all other days Full instructions 5 mg on Mon; 7.5 mg all other days Weekly total 50 mg Plan last modified Qing Guy, CHANDLER (08/31/2015) Next INR check 01/19/2016 Target end date Indefinite Indications Long-term (current) use of anticoagulants [Z79.01] [Z79.01] 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] Anticoagulation Episode Summary INR check location [facility] Preferred lab Send INR reminders to [facility] Comments 5mg tabs - devaughn dose // APPT CARD ONLY Anticoagulation Care Providers Provider Role Specialty Phone number Lucero Stevenson MD Pediatrics [phone] Qing Guy RN documented in this encounter Plan of Treatment Upcoming Encounters Date Type Specialty Care Team Description 11/15/2022 Virtual Visit Pharm Haylie Gonzalez, [facility] [address] [facility] [place] [address] ([place]) 11/15/2022 Virtual Visit IM/Yane Mathias MD [address] [facility] [place] [address] ([place]) 03/03/2023 Virtual Visit Neurology Erlinda Barber MD [address] [facility] [address] [place] [address] ([place]ena max) documented as of this encounter Procedures Procedure Name Priority Date/Time Associated Diagnosis Comme nts INR POINT OF CARE Routine 12/21/2015 Pulmonary embolism and Results for this infarction (H) procedure are in the Long-term (current) use of r esults section. anticoagulants documented in this encounter Results INR point of care (12/21/2015) P athologist Signature INR Point of 2.0 [facility] Specimen (Source) Anatomical Location Collection Method / Collectio n Time Received Time / Laterality Volume 12/21/2015 Lucero Stevenson MD LAB - BLOOD ORDERABLES Performing Organization Address City/State/ZIP Code Phon e Number [facility] [address] [place] [address] [phone] documented in this encounter Visit Diagnoses Diagnosis Pulmonary embolism and infarction (H) - Primary Long-term (current) use of anticoagulant s Encounter for long-term (current) use of anticoagulants documented in this encounter Care Teams Medical Assembly Relationship Specialty Start Date End Date Lucero [place] MD PCP - General Pediatrics 10/11/11 04/22/19 Chastity Montreo MD MD Dermatology 09/23/[address] [place] [address] [address] [place] [address] documented as of this encounter
--- OUTSIDE RECORDS SUMMARY | 2022-06-15 13:18 | XMS_ITS | Encounter Summary ---
:1945 Author Organization [facility] Address [address] [place] [address] Care Team Providers Name Role Phone Lucero Stevenson MD Primary Care Provider [phone] Chastity Montero MD Unavailable Encounter Details Date Type Department Care Team Description 02/08/2016 Anticoagulation Therapy [facility] Pulmonary embolism and infarction (H) (Primary Dx); Visit Yarelis roasterman current use of ant icoagulant therapy [address] [facility] [place] [id number] Social History Tobacco [...] documented as of this encounter Progress Notes Prudence Austin RN - 02/08/2016 4:32 PM CDT ANTICOAGULATION FOLLOW-UP CLINIC VISIT Patient Name: Charlette Brush Date: 02/08/2016 Contact Type: Face to Face SUBJECTIVE: OBJECTIVE INR PROTIME Date Value Ref Range Status 02/08/2016 1.9 Final ASSESSMENT / PLAN INR assessment THER Recheck INR In: 3 WEEKS INR Location Clinic Anticoagulation Summary as of 02/08/2016 INR goal 2.0-3.0 Selected INR 1.9! (02/08/2016) Maintenance plan 10 mg (10 mg x 1) on Fri; 7.5 mg (7.5 mg x 1) all other days Full instructions 10 mg on Fri; 7.5 mg all other days Weekly total 55 mg Plan last modified Prudence Austin RN (02/08/2016) Next INR check 02/29/2016 Target end date Indefinite Indications 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] Anticoagulation Episode Summary INR check location [facility] Preferred lab Send INR reminders to ANTICOAG CLINIC Comments 7.5mg & 10mg tabs - devaughn dose // APPT CARD ONLY Anticoagulation Care Providers Provider Role Specialty Phone number Lucero Stevenson MD Pediatrics [phone] Prudence Austin RN documented in this encounter Plan of Treatment Upcoming Encounters Date Type Specialty Care Team Description 11/15/2022 Virtual Visit Pharm D Haylie Cheung, [facility] [address] [facility] [place] [address] (Lena max) 11/15/2022 Virtual Visit IM/Yane Mathias MD [address] [facility] [place] [address] (Lena max) 03/03/2023 Virtual Visit Neurology Erlinda Barber MD [address] [facility] [address] [place] [address] (Lena max) documented as of this encounter Procedures Procedure Name Priority Date/Time Associated Diagnosis Comme nts INR POINT OF CARE Routine 02/08/2016 Pulmonary embolism and Results for this infarction (H) procedure are in the results section . documented in this encounter Results INR point of care (02/08/2016) P athologist Signature INR Point of 1.9 [facility] Specimen (Source) Anatomical Location Collection Method / Collectio n Time Received Time / Laterality Volume 02/08/2016 Lucero Stevenson MD LAB - BLOOD ORDERABLES Performing Organization Address City/State/ZIP Code Phon e Number [facility] [address] [place] [address] documented in this encounter Visit Diagnoses Diagnosis Pulmonary embolism and infarction (H) - Primary [facility] current use of anticoagulant t herapy documented in this encounter Care Teams Cardiology Fellow Relationship Specialty Start Date End Date Lucero Stevenson MD PCP - General Pediatrics 10/11/11 04/22/19 Chastity Montero MD MD Dermatology 09/23/14 [address] [facility] [address] [place] [address] documented as of this encounter
--- OUTSIDE RECORDS SUMMARY | 2022-06-15 13:18 | XMS_ITS | Encounter Summary ---
:1945 Author Organization [facility] Address [address] [place] [address] Care Team Providers Name Role Phone Lucero Stevenson MD Primary Care Provider [phone] Chastity Montero MD Unavailable [phone] Encounter Details Date Type Department Care Team Description 02/29/2016 Anticoagulation Therapy [facility] Pulmonary embolism Visit [place] and infarction (H) [address] (Primary Dx) [place] [id number] Social History Tobacco Use [...] encounter Progress Notes Qing Guy RN - 02/29/2016 11:15 AM CDT ANTICOAGULATION FOLLOW-UP CLINIC VISIT Patient Name: Charlette Brush Date: 02/29/2016 Contact Type: Face to Face SUBJECTIVE: Patient Findings Positives No Problem Findings OBJECTIVE INR PROTIME Date Value Ref Range Status 02/29/2016 2.3 Final ASSESSMENT / PLAN INR assessment THER Recheck INR In: 4 WEEKS INR Location Clinic Anticoagulation Summary as of 02/29/2016 INR goal 2.0-3.0 Selected INR 2.3 (02/29/2016) Maintenance plan 10 mg (10 mg x 1) on Fri; 7.5 mg (7.5 mg x 1) all other days Full instructions 10 mg on Fri; 7.5 mg all other days Weekly total 55 mg No change documented Qing Guy, [facility] Plan last modified Prudence Austin RN (02/08/2016) Next INR check 03/28/2016 Target end date Indefinite Indications 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] Anticoagulation Episode Summary INR check location [facility] Preferred lab Send INR reminders to ANTICOAG CLINIC Comments 7.5mg & 10mg tabs - devaughn dose // APPT CARD ONLY Anticoagulation Care Providers Provider Role Specialty Phone number Lucero Stevenson MD Pediatrics [phone] Qing Guy RN documented in this encounter Plan of Treatment Upcoming Encounters Date Type Specialty Care Team Description 11/15/2022 Virtual Visit Pharm D Haylie Cheung, [facility] [address] [facility] [place] [address] (Lena max) 11/15/2022 Virtual Visit IM/Yane Mathias MD [address] [facility] [place] [address] (Lena max) 03/03/2023 Virtual Visit Neurology Erlinda Barber MD [address] [facility] [address] [place] [address] (Lena max) documented as of this encounter Procedures Procedure Name Priority Date/Time Associated Diagnosis Comme nts INR POINT OF CARE Routine 02/29/2016 Pulmonary embolism and Results for this infarction (H) procedure are in the results section . documented in this encounter Results INR point of care (02/29/2016) P athologist Signature INR Point of 2.3 [facility] [place] Specimen (Source) Anatomical Location Collection Method / Collectio n Time Received Time / Laterality Volume 02/29/2016 Lucero Stevenosn MD LAB - BLOOD ORDERABLES Performing Organization Address City/State/ZIP Code Phon e Number [facility] [place] [address] [place] [address] documented in this encounter Visit Diagnoses Diagnosis Pulmonary embolism and infarction (H) - Primary documented in this encounter Care Teams Bee Rancher Relationship Specialty Start Date End Date Lucero Stevenson MD PCP - General Pediatrics 10/11/11 04/22/19 Chastity Montero MD MD Dermatology 09/23/[address] [place] [address] [address] [place] [address] documented as of this encounter
--- OUTSIDE RECORDS SUMMARY | 2022-06-15 13:18 | XMS_ITS | Encounter Summary ---
:1945 Author Organization [facility] Address [address] [place] [address] Care Team Providers Name Role Phone Lucero Stevenson MD Primary Care Provider [phone] Chastity Montero MD Unavailable [phone] Reason for Visit Reason Onset Date Comments Refill Request 02/19/2016 Warfarin 7.5 mg Encounter Details Date Type Department Care Team Description 02/19/[address] [facility] Eag Lucero Falk Refill Request 1440 [facility] MD Annetta (Warfarin 7.5 mg ) [place] [address] [facility] [phone] [address] [place], [place] [address] (Wo rk) Social History [...] Telephone Encounter - Krystyna Sharp, RN - 02/19/2016 8:39 AM CDT Pt is out of her warfarin 7.5 mg tabs(1 tab 6 days a week). Has an upcoming INR appt on 02/28. Sent new rx for 7.5 mg tabs. Notes from last INR visit on 02/07: INR goal 2.0-3.0 Selected INR 1.9! (02/08/2016) Maintenance plan 10 mg (10 mg x 1) on Fri; 7.5 mg (7.5 mg x 1) all other days Full instructions 10 mg on Fri; 7.5 mg all other days Weekly total 55 mg Christopher flight purser Nurse documented in this encounter Plan of Treatment Upcoming Encounters Date Type Specialty Care Team Description 11/15/2022 Virtual Visit Pharm D Haylie Cheung, [facility] 14[address] [facility] [place] [phone] (Wo rk) 11/15/2022 Virtual [place] [address] [place] [address] [place] [phone] (Wo rk) 03/03/2023 Virtual Visit Neurology Erlinda Barber MD 420 [facility] [address] [place] [address] (Wo rk) documented as of this encounter Visit Diagnoses Diagnosis [facility] current use of anticoagulant t herapy - Primary documented in this encounter Care Teams Lumber Handler Relationship Specialty Start Date End Date Lucero Stevenson MD PCP - General Pediatrics 10/11/11 04/22/19 Chastity Montero MD MD Dermatology 09/23/[address] [place] [address] [address] [place] [address] documented as of this encounter
--- OUTSIDE RECORDS SUMMARY | 2022-06-15 13:18 | XMS_ITS | Encounter Summary ---
:1945 Author Organization [facility] Address [address] [place] [address] Care Team Providers Name Role Phone Lucero Stevenson MD Primary Care Provider [phone] Chastity Montero MD Unavailable [phone] Encounter Details Date Type Department Care Team Description 04/25/2016 Anticoagulation Therapy [facility] Pulmonary embolism Visit Yarelis and infarction (H) [address] (Primary Dx) [place] [phone] Social [...] as of this encounter Progress Notes Hayley Jimenez RN - 04/25/2016 10:52 AM CDT ANTICOAGULATION FOLLOW-UP CLINIC VISIT Patient Name: Charlette Brush Date: 04/25/2016 Contact Type: Face to Face SUBJECTIVE: Patient Findings Positives Diet Changes, Other Complaints, No Problem Findings Comments Seasonal allergies recently however this has not seemed to affect her INR . INR at 1.9 today - perhaps due to kale salad 2 days ago. She typically does not eat kale. OBJECTIVE INR PROTIME Date Value Ref Range Status 04/25/2016 1.9* 0.86 - 1.14 Final ASSESSMENT / PLAN INR assessment THER Recheck INR In: 4 WEEKS INR Location Clinic Anticoagulation Summary as of 04/25/2016 INR goal 2.0-3.0 Selected INR 1.9! (04/25/2016) Maintenance plan 10 mg (10 mg x 1) on Fri; 7.5 mg (7.5 mg x 1) all other days Full instructions 10 mg on Fri; 7.5 mg all other days Weekly total 55 mg No change documented Hayley Jimenez RN Plan last modified Prudence Austin RN (02/08/2016) Next INR check 05/23/2016 Target end date Indefinite Indications 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] Anticoagulation Episode Summary INR check location [facility] Preferred lab Send INR reminders to [facility] Comments 7.5mg & 10mg tabs - devaughn dose // APPT CARD ONLY Anticoagulation Care Providers Provider Role Specialty Phone number Lucero Stevenson MD Pediatrics [phone] Hayley Jimenez RN documented in this encounter Plan of Treatment Upcoming Encounters Date Type Specialty Care Team Description 11/15/2022 Virtual Visit Pharm Haylie Gonzalez, [facility] 14[address] [facility] [place] [address] (Lena max) 11/15/2022 Virtual Visit IM/Peds Yane Barraza MD [address] [facility] [place] [address] (Lena max) 03/03/2023 Virtual Visit Neurology Erlinda Barber MD [address] [facility] [address] [place] [address] (Wo rk) documented as of this encounter Procedures Procedure Name Priority Date/Time Associated Diagnosis Comme nts INR POINT OF CARE Routine 04/25/2016 Pulmonary embolism and Results for this infarction (H) procedure are in the results section . documented in this encounter Results (ABNORMAL) INR point of care (04/25/2016) athologist Signature INR Point of 1.9 (A) 0.86 - [facility] 1.14 [facility] YARELIS Specimen (Source) Anatomical Location Collection Method / Collectio n Time Received Time / Laterality Volume 04/25/2016 Manny Vazquez MD LAB - BLOOD ORDERABLES Performing Organization Address City/State/[facility] Code Phon e Number [facility] [address] [place] [address] documented in this encounter Visit Diagnoses Diagnosis Pulmonary embolism and infarction (H) - Primary documented in this encounter Care Teams Drum Drier Relationship Specialty Start Date End Date Lucero Stevenson MD PCP - General Pediatrics 10/11/11 04/22/19 Chastity Montero MD MD Dermatology 09/23/14 [address] [facility] [address] [place], [place] [phone] documented as of this encounter
--- OUTSIDE RECORDS SUMMARY | 2022-06-15 13:18 | XMS_ITS | Encounter Summary ---
:1945 Author Organization [facility] Address [address] [place] [address]. [place] [address] Care Team Providers Name Role Phone Lucero Stevenson MD Primary Care Provider [phone] Chastity Montero MD Unavailable [phone] Reason for Visit Reason Comments Derm Problem Charlette is here today for a cer follow up. Encounter Details Date Type Department Care Team Description 04/12/2016 Office Visit [facility] Dermatology Chastity Montero Allergic contact dermatitis due to other agents (Primary Dx); 9[address] [facility] MD Martha Traumatic ulcer, limited to breakdown of skin (H); 3rd Floor [address] [facility] Lymphedema; [place], [place] 98 Venous stasis dermatitis of both lower e xtremities [address] [place], [place] [phone] [address] (Wo rk) Social History Tobacco Use [...] as of this encounter Patient Instructions Patient InstructionsThania Guerrero MD - 04/12/2016 10:42 AM CDT ?? Will plan on 6 month follow up. ?? If things get worse before then, call us for an appointment sooner. ?? If your cataract surgeon has questions about what can be used, have him send us the list of products and we can run them past Dr. Schroeder to make sure they are ok for you. documented in this encounter Progress Notes Chastity Montero MD - 04/12/2016 10:19 AM CDT [facility] Dermatology Note Dermatology Problem List: 1. Nummular [...] cream, Elidel cream, hydrocortisonecream 1%, Balsam of Clarissa, Euxyl K 400, and benzoyl alcohol -Doubtful reactions: Vanicream light, Ombrelle Jenni, Wal-Sporin ointment, Suave shampoo, bactrobanointment, paraben mix, benzoyl peroxide 3. Left lower back ulceration since 08/2012; has been biopsied and suggestive of trauma. Complicatedhealing due to pressure from waist bands and infections. Completely healed over 04/12/16. Encounter Date: Apr 12, 2016 CC: Chief Complaint Patient presents with ??? Derm Problem Charlette is here today for a ulcer follow up. History of Present Illness: Ms. Charlette Brush is a 71 year old female who presents as a follow-up for wound on lower back. Since last visit, her back ulceration has done really well. She has not had to apply any hydrocortisone or vaseline at all. She is very happy with this. She never identified what was causing trauma to the back. She notes her pants rub in the area but does not think this is involved. Charlette is concerned today that she is planning to have cataract surgery in the future. Her eye doctortold her they may need to use steroid drops after. She knows that she has allergies to topical steroids and wonders if any can be used. She does not have a copy of her allergy list anymore. Patch testing was due in [address] Schroeder. She does know that she has numerous allergies. No new skin concerns today. Past Medical History: Patient Active Problem List Diagnosis ??? Essential hypertension, benign ??? Pulmonary embolism and infarction (H) ??? Morbid obesity (H) ??? Other lymphedema ??? CEFERINO (obstructive sleep apnea) ??? CARDIOVASCULAR SCREENING; LDL GOAL LESS THAN 130 ??? Dermatitis, stasis ??? Advanced directives, counseling/discussion ??? Health [facility] ??? Binge eating ??? Eczema ??? Pre-diabetes ??? Vitamin D deficiency ??? 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 current use of anticoagulant therapy Past Medical History Diagnosis Date ??? benign positional vertigo 09/08/2004 s/p canolith repositioning 07/21 ??? Other lymphedema 11/04/2003 ??? BENIGN HYPERTENSION 07/30/2003 ??? PULM EMBOLISM/INFARCT NOS 11/20/2001 ??? CEFERINO (obstructive sleep apnea) nightly CPAP ??? GERD (gastroesophageal reflux disease) ??? Coagulation disorder (H) Pulmonary embolism 2001 Past Surgical History Procedure Laterality Date ??? Cholecystectomy, open 1970 ? ? Tonsillectomy & adenoidectomy ??? Colonoscopy N/A 01/13/2015 Procedure: COLONOSCOPY; Surgeon: Jose Juan Castaneda MD; Location: [facility] OR Social History: The patient does not work. The patient denies use of tanning beds. Family History: There is a possible family history of skin cancer in her father, unclear what type. There is no family history of melanoma. Medications: Current Outpatient Prescriptions Medication Sig Dispense Refill ??? warfarin (COUMADIN) 7.5 MG tablet Take 7.5mg MTWTSS or as directed by INR Clinic. 90 tablet 0 ??? warfarin (COUMADIN) 10 MG tablet Take 10mg Fri or as directed by INR clinic 90 [...] Patient's machine is a [employer] by [employer], [facility] Auto A-Flex System 1. 1 Device [...] epithelized without any open areas or crusting. -No eczema on the bilateral upper extremities. -Changes associated with lymphedema in the lower legs. -Scattered coppery brown patches on the anterior shins consistent with stasis [...] will be needed after cateract surgery. ?? Reprinted letter with allergens for patient to bring to her consultation appiontment for cataractsurgery. ?? Asked patient to send us list of medications to be used during surgery and after if her surgeon has any concerns. We can review this with Dr. Schroeder to see if any should be avoided. 3. Lymphedema + venous stasis dermatitis of the bilateral lower extremities: stable at this time. Follow-up in 6 months, earlier for new or changing lesions. staffed the patient. Staff Involved: Resident(Thania Guerrero)/Staff(as above) .I was present for yancey portions of the history and exam. See resident note for pertinent history, exam, and treatment plan. Chastity Montero MD documented in this encounter Nursing Notes Yancy Montero CMA - 04/12/2016 10:04 AM CDT Dermatology Rooming Note Charlette Brush's goals for this visit include: Chief Complaint Patient presents with ??? Derm Problem Charlette is here today for a ulcer follow up. Yancy Montero MA documented in this encounter Plan of Treatment Upcoming Encounters Date Type Specialty Care Team Description 11/15/2022 Virtual Visit Pharm Haylie Gonzalez, [facility] [address] [facility] [place] [address] (Wo rk) 11/15/2022 Virtual Visit IM/Peds Yane Barraza MD [address] [facility] [place] [address] (Wo rk) 03/03/2023 Virtual Visit Neurology Erlinda Barber MD [address] [facility] [address] [place], [place] [phone] (Wo rk) documented as of this encounter Visit Diagnoses Diagnosis Allergic contact dermatitis due to other agents - Primary Traumatic ulcer, limited to breakdown of skin (H) Lymphedema Other lymphedema Venous stasis dermatitis of both lower e xtremities documented in this encounter Care Teams Duct Layer Helper Relationship Specialty Start Date End Date Lucero Stevenson MD PCP - General Pediatrics 10/11/11 04/22/19 Chastity Montero MD MD Dermatology 09/23/14 [address] [facility] 98 [place], [place] [phone] documented as of this encounter
--- OUTSIDE RECORDS SUMMARY | 2022-06-15 13:18 | XMS_ITS | Encounter Summary ---
:1945 [address] [place] Address [address] [place] [address]. [place] [address] Care Team Providers Name Role Phone Lucero Stevenson MD Primary Care Provider [phone] Chastity Montero MD Unavailable [phone] Reason for Visit Reason Comments Derm Problem Charlette is here today for a sk in check, she states she is here for a f/u with ulcers, the ulcers on h er lower back have gotten better since the last visit. Encounter Details Date Type Department Care Team Description 10/28/2015 Office Visit [facility] Dermatology Chastity Montero Venous stasis dermatitis of both lower extremities (Primary Dx); 909 [facility] MD Martha Dermatitis 3rd Floor [address] [place], [place] [address] [place], [place] [phone] (Wo rk) Social History Tobacco Use Types [...] Sign Reading Time Taken Comments Blood Pressure 172/79 10/28/2015 11:49 AM CDT (from E xtended Vitals) Pulse 64 10/28/2015 11:49 AM CDT (from E xtended Vitals) Temperature - - Respiratory Rate - - Oxygen Saturation - - Inhaled Oxygen Concentration - - Weight - - Height - - Body Mass Index - - documented in this encounter Progress Notes Malachi Morales CMA - 10/28/2015 12:00 PM CDT Images from the original note were not included. Placed pictures of patient in chart for further treatment. Chastity Montero MD - 10/28/2015 11:07 AM CDT CHIEF COMPLAINT: Followup for ulcers on the back. 10/28/2015 DERMATOLOGY PROBLEM LIST: 1. Nummular stasis dermatitis. 2. Allergic contact allergies: Status post patch testing with multiple allergens. 3. Left lower back ulceration since 08/2012; has been biopsied and suggestive of trauma. Now healing; cx pending 4. 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 She says this has helped decrease the pain in these sites. She lost the prescription for the compression stockings and would like another; she otherwise has been using desoximetasone on the lower legs to keep the rash at bay. She is feeling well today, no fevers, chills. She is not havins issues related to ACD today. REVIEW OF SYSTEMS: Per HPI PHYSICAL EXAMINATION: GENERAL: Obese female in NAD, very pleasant SKIN: A limited skin exam of the face, neck, back and lower extremities reveals the following: - Skin Andre type I. - one atrophic scar that is well-healed in the central lower back - one 5 mm circular crusted ulceration just lateral to the atrophic lesion - lower legs with woody texture, thickened skin and diffuse scale. No ulcerations present on either leg today. ASSESSMENT AND PLAN: 1. Severe contact allergic dermatitis: no issues today; patient continues to avoid allergens. 2. Lower back ulcerations: likely trauma (per previous biopsy) 2/2 waistband. - cultured new ulceration today - continue to wear loose fitting clothing around the waist 3. Stasis dermatitis with lichenification: Begin wearing compression stockings once obtained from pharmacy. - Continue desoximetasone gel prn for any redness on the lower legs. - fill the prescription for knee high zippered Jobst stockings 20-30mmHg and begin wearing these Follow up in 6 weeks. Seen and staffed with Dr. Chastity Murphy MD PGY2 Dermatology Resident .I was present for yancey portions of the history and exam. See resident note for pertinent history, exam, and treatment plan. Chastity Montero MD documented in this encounter Nursing Notes Malachi Morales CMA - 10/28/2015 10:53 AM CDT Dermatology Rooming Note Charlette Carreon Goalison's goals for this visit include: Chief Complaint Patient presents with ??? Derm Problem Charlette is here today for a skin check, she states she is here for a f/u with ulcers, the ulcers on her lower back have gotten better since the last visit. Malachi Morales documented in this encounter Plan of Treatment Upcoming Encounters Date Type Specialty Care Team Description 11/15/2022 Virtual Visit Haylie Wakefield, [facility] [address] [place], [place] [phone] (Wo rk) 11/15/2022 Virtual Visit IM/Peds Short, Yane S, MD [address] [place] [address] (Wo rk) 03/03/2023 Virtual Visit Neurology Erlinda Barber MD [address] [facility] 295 [place] [address] (Wo rk) documented as of this encounter Procedures Procedure Name Priority Date/Time Associated Diagnosis Comme nts WOUND CULTURE Routine 10/28/2015 11:30 AM Dermatitis Results for this AEROBIC BACTERIAL CDT procedure are in the results section. GRAM STAIN Routine 10/28/2015 11:30 AM Dermatitis Results for this CDT procedure are i n the results section. documented in this encounter Results Gram stain (10/28/2015 11:30 AM CDT) [facility] Method Time Signature Specimen Wound [facility] Gram Stain No cells INFECTIOUS seen DISEASE DIAGNOSTIC LABORATORY Micro Report FINAL INFECTIOUS Status DISEASE 6 DIAGNOSTIC LABORATORY Specimen Anatomical Collection Method Collection Time Receive d Time (Source) Location / / Volume Laterality 10/28/2015 11:30 10/28/2015 AM CDT 12:40 PM CDT Chastity Montero MD LAB - MICRO GENERAL ORDERABL ES Performing Organization Address City/State/ZIP Code Phon e Number INFECTIOUS DISEASES [address] [place] [address] DIAGNOSTIC LABORATORY, [id number] [place] [address] INFECTIOUS DISEASE [address] [place], [place] [id number] [place] [address] DIAGNOSTIC LABORATORY (ABNORMAL) Wound Culture Aerobic Bacterial (10/28/2015 11:30 AM CDT) Component Value Ref Test Analysis Performed At [facility] Range Method Time Signature Specimen Wound Lower Back [facility] Culture Micro Moderate growth INFECTIOUS Staphylococcus DISEASE aureus (A) DIAGNOSTIC LABORATORY Micro Report FINAL 10/30/2015 INFECTIOUS Status DISEASE DIAGNOSTIC LABORATORY Organism: Moderate growth INFECTIOUS Staphylococcus DISEASE aureus DIAGNOSTIC LABORATORY Specimen Anatomical Collection Method Collection Time Receive d Time (Source) Location / / Volume Laterality Specimen from 10/28/2015 11:30 10/28/2015 wound (specimen) AM CDT 12:40 PM CD T Organism Antibiotic Method Susceptibility Moderate growth Ciprofloxacin <=0.5 Susceptibl e ug/mL staphylococcus aureus (barb) Moderate growth Clindamycin <=0.25 Susceptib le ug/mL staphylococcus aureus (barb) Moderate growth Erythromycin <=0.25 Susceptib le ug/mL staphylococcus aureus (barb) Moderate growth Gentamicin <=0.5 Susceptibl e ug/mL staphylococcus aureus (barb) Moderate growth Levofloxacin <=0.12 Susceptib le ug/mL staphylococcus aureus (barb) Moderate growth Oxacillin 0.5 Susceptible ug/mL staphylococcus aureus (barb) Moderate growth Penicillin >1.0 Resistant u g/mL staphylococcus aureus (barb) Moderate growth Tetracycline <=1 Susceptible ug/mL staphylococcus aureus (barb) Moderate growth Trimethoprim/Sulfamethoxa <=.5/9 .5 Susceptible ug/mL staphylococcus aureus (barb) zole Moderate growth Vancomycin 1 Susceptible ug /mL staphylococcus aureus (barb) Chastity Montero MD LAB - MICRO GENERAL ORDERABL ES Performing Organization Address City/State/ZIP Code Phon e Number INFECTIOUS DISEASES [address] [place] [address] DIAGNOSTIC LABORATORY, [address] INFECTIOUS DISEASE [address] DIAGNOSTIC LABORATORY documented in this encounter Visit Diagnoses Diagnosis Venous stasis dermatitis of both lower e xtremities - Primary Dermatitis Contact dermatitis and other eczema, due to unspecified cause documented in this encounter Care Teams Marine Resource Economist Relationship Specialty Start Date End Date Lucero Stevenson MD PCP - General Pediatrics 10/11/11 04/22/19 Chastity Montero MD MD Dermatology 09/23/[address] [address] documented as of this encounter
--- OUTSIDE RECORDS SUMMARY | 2022-06-15 13:18 | XMS_ITS | Encounter Summary ---
:1945 Author Organization [place] Address [address] [place] [address] Care Team Providers Name Role Phone Lucero Stevenson MD Primary Care Provider [phone] Chastity Montero MD Unavailable [phone] Reason for Visit Reason Onset Date Comments Diarrhea 11/25/2015 Encounter Details Date Type Department Care Team Description 11/25/2015 Telephone [facility] Lucero Falk, [facility] [address] [facility] [place] [address] [facility] [phone] 8624 [place], [place] [address] (Wo rk) Social History Tobacco Use [...] this encounter Miscellaneous Notes Telephone Encounter - Susie uMrphy - 11/25/2015 10:40 AM CDT Liq stools since Monday. Didn't eat on Monday. Vomited x1. Monday she tried roast beef sandwich on dry bun. Slept 4 1/2h last night. Has been in BR now. Asked her to go to cl liq and then, bland foods(rice, bananas, etc). She can try imodium and that med is over the counter and has instructions on the box. She should void q8h, have tears and moist mouth. Call back if not improving. Susie Murphy RN documented in this encounter Plan of Treatment Upcoming Encounters Date Type Specialty Care Team Description 11/15/2022 Virtual Visit Pharm Haylie Gonzalez, [facility] [address] [place] [address] (Wo rk) 11/15/2022 Virtual Visit IM/Peds Yane Barraza MD [address] [place] [address] (Wo rk) 03/03/2023 Virtual Visit Neurology Erlinda Barber MD 420 [facility] 295 [place], [place] [id number] (Wo rk) documented as of this encounter Visit Diagnoses Not on filedocumented in this encounter Care Teams Machine Engraver Relationship Specialty Start Date End Date Lucero Stevenson MD PCP - General Pediatrics 10/11/11 04/22/19 Chastity Montero MD MD Dermatology 09/23/14 420 [facility] 98 [place], [place] [phone] documented as of this encounter
--- OUTSIDE RECORDS SUMMARY | 2022-06-15 13:18 | XMS_ITS | Encounter Summary ---
:1945 Author Organization [place] Address [address] [place] [address]. [place] [address] Care Team Providers Name Role Phone Lucero Stevenson MD Primary Care Provider [phone] Chastity Montero MD Unavailable [phone] Reason for Visit Reason Comments RECHECK Patient is here for a follow up on her ulcer. Patient states it seems better. Encounter Details Date Type Department Care Team Description 2016 Office Visit [facility] Dermatology Chastity Montero Ulceration (H) (Primary Dx); 909 [facility] MD Martha Venous stasis; 3rd Floor 420 [facility] EM[facility]PART[facility] Venous stasis dermatitis of both lower extremities; [place], [place] [address] Dermatitis [address] [place], [place] [phone] (Wo rk) Social History Tobacco Use Types [...] Sign Reading Time Taken Comments Blood Pressure 152/81 2016 11:51 AM CDT Pulse 64 2016 11:51 AM CDT Temperature - - Respiratory Rate - - Oxygen Saturation - - Inhaled Oxygen Concentration - - Weight - - Height - - Body Mass Index - - documented in this encounter Patient Instructions Patient InstructionsStewraman-Monik Johnson CMA - 2016 11:29 AM CDT Twice a week, apply dilute vinegar solution (1 part plain white vinegar to 1 part water) with a washcloth to the sore on the back for 15 minutes. documented in this encounter Progress Notes Chastity Montero MD - 2016 11:32 AM CDT [facility] Dermatology Note Dermatology Problem List: 1. Nummular stasis dermatitis. ?? 2. Allergic contact allergies:?? Status post patch testing with multiple allergens. 3. Left lower back ulceration since 08/2012; has been biopsied and suggestive of trauma. Now healing; cx with MSSA 4. 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 RECHECK Patient is here for a follow up on her ulcer. Patient states it seems better. History of Present Illness: Ms. Charlette Brush is a 70 year old female who presents as a follow-up for wound on lower back. She applies hydrocortisone or vaseline BID; notes improvement (less of a scab). She avoids her patch test allergens and hasn't had rash. She does not wear compression stockings and does not have rash on the legs. Past Medical History: Patient Active Problem List Diagnosis ??? Essential hypertension, benign ??? Pulmonary embolism and infarction (H) ??? Morbid obesity (H) ??? Other lymphedema ??? CEFERINO (obstructive sleep apnea) ??? CARDIOVASCULAR SCREENING; LDL GOAL LESS THAN 130 ??? Dermatitis, stasis ??? Advanced directives, counseling/discussion ??? Health Alf ??? Binge eating ??? Eczema ??? Pre-diabetes ??? Vitamin D deficiency ??? 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 benign positional vertigo 09/08/2004 s/p canolith repositioning 07/21 ??? Other lymphedema 11/04/2003 ??? BENIGN HYPERTENSION 07/30/2003 ??? PULM EMBOLISM/INFARCT NOS 11/20/2001 ??? CEFERINO (obstructive sleep apnea) nightly CPAP ??? GERD (gastroesophageal reflux disease) ??? Coagulation disorder (H) Pulmonary embolism 2001 Past Surgical History Procedure Laterality Date ??? Cholecystectomy, open 1969 ? ? Tonsillectomy & adenoidectomy ??? Colonoscopy N/A 01/13/2015 Procedure: COLONOSCOPY; Surgeon: Jose Juan Castaneda MD; Location: OR Social History: The patient does not work. The patient denies use of tanning beds. Family History: There is a possible family history of skin cancer in her father, unclear what type. and There is no family history of melanoma. Medications: Current Outpatient Prescriptions Medication Sig Dispense Refill ??? triamterene-hydrochlorothiazide (DYAZIDE) 37.5-25 MG per capsule Take 1 capsule by mouth every morning 90 capsule 3 ??? losartan (COZAAR) 100 MG tablet Take 1 tablet (100 mg) by mouth daily 90 tablet 3 ??? atenolol (TENORMIN) 25 MG tablet Take 1 tablet (25 mg) by mouth 2 times daily 180 tablet 3 ??? hydrocortisone 2.5 % ointment Daily as needed 180 g 3 ??? warfarin (COUMADIN) 7.5 MG tablet Take 7.5mg TWTFSS or as directed by INR Clinic. 90 tablet 0 ? ? Elastic Bandages & Supports (JOBST KNEE HIGH COMPRESSION SM) MISC Please custom-measure for ZIPPERED knee-high compression stockings. and issue 2 Units 1 ??? desoximetasone (TOPICORT) 0.05 % GEL Apply 1 g topically two times daily 180 g 3 ??? omeprazole (PRILOSEC) 40 MG capsule Take 1 capsule (40 mg) by mouth daily Take 30-60 minutes before a meal. 90 capsule 1 ??? warfarin (COUMADIN) 10 MG tablet Take 5mg M or as directed by INR clinic 90 tablet 1 ??? ORDER FOR DME Equipment being ordered: CPAP mask Please dispense- Comfort gel blue nasal mask with HGR,DOM-Size Small Patient's machine is a [employer] by [employer], [employer] Star Auto A-Flex System 1. 1 Device [...] Bactroban [Mupirocin Calcium] Rash Review of Systems: -Feels otherwise well, denies other skin concerns. Denies headache, chest pain, or SOB. States her blood pressure was in the 120's last week and she often gets high readings with this type of blood pressure cuff. Physical exam: Vitals: BP 159/75 mmHg Pulse 60 GEN: This is a well developed, morbidly obese female in no acute distress, in a pleasant mood. SKIN: Focused examination of the face, lower back, and legs was performed. Erythematous linear plaque L lower back with central crusted ulceration Edema and lichenification BLE -No other lesions of concern on areas examined. Extremities: PT pulses 2+ b/l Impression/Plan: 1. Lymphedema vs venous stasis: have previously prescribed zippered compression but patient did not fill due to concerns about coverage/availability. Recommend that she attempt to fill the prescription; paper prescription provided. 2. Traumatic ulceration L lower back: improved today. Recent culture with MSSA. Allergic to mupirocin. Recommend dilute vinegar soaks twice a week. 3. ACD, well controlled with allergan avoidance and hydrocortisone 2.5% ointment prn. Follow-up in 3 months, earlier for new or changing lesions. staffed the patient. Staff Involved: Resident(Hilda Layne)/Staff(as above) .I was present for yancey portions of the history and exam. See resident note for pertinent history, exam, and treatment plan. Chastity Montero MD documented in this encounter Nursing Notes Monik Aldana CMA - 2016 11:29 AM CDT Dermatology Rooming Note Charlette Brush's goals for this visit include: Chief Complaint Patient presents with ??? RECHECK Patient is here for a follow up on her ulcer. Patient states it seems better. documented in this encounter Plan of Treatment Upcoming Encounters Date Type Specialty Care Team Description 11/15/2022 Virtual Visit Pharm Haylie Gonzalez, [facility] [address] [place] [address] [place] [id number] (Wo rk) 11/15/2022 Virtual Visit [place] [address] [place] [address] [address] [place] [id number] (Wo rk) 03/03/2023 Virtual Visit Neurology Erlinda Barber MD 420 [facility] 295 [place] [address] (Wo rk) documented as of this encounter Visit Diagnoses Diagnosis Ulceration - Primary Chronic ulcer of unspecified site Venous stasis Unspecified venous (peripheral) insuffic iency Venous stasis dermatitis of both lower e xtremities Dermatitis Contact dermatitis and other eczema, due to unspecified cause documented in this encounter Care Teams Field Crop I Farmworker Relationship Specialty Start Date End Date Lucero Stevenson MD PCP - General Pediatrics 10/11/11 04/22/19 Chastity Montero MD MD Dermatology 09/23/[address] [address] documented as of this encounter
--- OUTSIDE RECORDS SUMMARY | 2022-06-15 13:18 | XMS_ITS | Encounter Summary ---
:1945 Author Organization [place] Address [address] [place] [address] Care Team Providers Name Role Phone Lucero Stevenson MD Primary Care Provider [phone] Chastity Montero MD Unavailable [phone] Encounter Details Date Type Department Care Team Description 07/11/2016 Anticoagulation Therapy [facility] Pulmonary embolism and infarction (H) (Primary Dx); Visit Clinic Gerald terminologist current use of ant icoagulant therapy [address] [facility] [address] [place] [address] Social [...] this encounter Progress Notes Susie Murphy - 07/11/2016 3:21 PM CST ANTICOAGULATION FOLLOW-UP CLINIC VISIT Patient Name: Charlette Brush Date: 07/11/2016 Contact Type: Face to Face SUBJECTIVE: Patient Findings Positives No Problem Findings OBJECTIVE INR PROTIME Date Value Ref Range Status 07/11/2016 2.1 Final ASSESSMENT / PLAN INR assessment THER Recheck INR In: 3 WEEKS INR Location Clinic Anticoagulation Summary as of 07/11/2016 INR goal 2.0-3.0 Selected INR 2.1 (07/11/2016) Maintenance plan 10 mg (10 mg x 1) on Mon, Fri; 7.5 mg (7.5 mg x 1) all other days Full instructions 10 mg on Mon, Fri; 7.5 mg all other days Weekly total 57.5 mg Plan last modified Qing Guy, CHANDLER (06/20/2016) Next INR check 08/01/2016 Target end date Indefinite Indications 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] Anticoagulation Episode Summary INR check location Coumadin Clinic Preferred lab Send INR reminders to [facility] Comments 7.5mg & 10mg tabs - devaughn dose // APPT CARD ONLY Anticoagulation Care Providers Provider Role Specialty Phone number Lucero Stevenson MD Pediatrics [phone] See the Encounter Report to view Anticoagulation Flowsheet and Dosing Calendar (Go to Encounters tabin chart review, and find the Anticoagulation Therapy Visit) Susie Murphy RN BENCH OPERATOR HELPER documented in this encounter Plan of Treatment Upcoming Encounters Date Type Specialty Care Team Description 11/15/2022 Virtual Visit Pharm Haylie Gnozalez, [facility] [address] [facility] [place] [address] (Wo rk) 11/15/2022 Virtual Visit [place] [address] [place] [address] [place] [address] (Wo rk) 03/03/2023 Virtual Visit Neurology Erlinda Barber MD 420 [facility] 295 [place] [address] (Wo rk) documented as of this encounter Procedures Procedure Name Priority Date/Time Associated Diagnosis Comme nts INR POINT OF CARE Routine 07/11/2016 Pulmonary embolism and Results for this infarction (H) procedure are in the results section . documented in this encounter Results INR point of care (07/11/2016) P athologist Signature INR Point of 2.1 [facility] RENATO Specimen (Source) Anatomical Location Collection Method / Collectio n Time Received Time / Laterality Volume 07/11/2016 Lucero Stevenson MD LAB - BLOOD ORDERABLES Performing Organization Address City/State/ZIP Code Phon e Number [facility] 14[address] [place] [address] documented in this encounter Visit Diagnoses Diagnosis Pulmonary embolism and infarction (H) - Primary senior care current use of anticoagulant t herapy documented in this encounter Care Teams Environmental Protection Inspector Relationship Specialty Start Date End Date Lucero Stevenson MD PCP - General Pediatrics 10/11/11 04/22/19 Chastity Montero MD MD Dermatology 09/23/14 420 [facility] 98 [place] [address] documented as of this encounter
--- OUTSIDE RECORDS SUMMARY | 2022-06-15 13:18 | XMS_ITS | Encounter Summary ---
:1945 Author Organization [facility] Address [address] [place] [address] Care Team Providers Name Role Phone Lucero Stevenson MD Primary Care Provider [phone] Chastity Montero MD Unavailable [phone] Encounter Details Date Type Department Care Team Description 06/20/2016 Anticoagulation Therapy [facility] Pulmonary embolism Visit Yarelis and infarction (H) [address] (Primary Dx) [place] [address] Social [...] encounter Progress Notes Qing Guy RN - 06/20/2016 3:52 PM CST ANTICOAGULATION FOLLOW-UP CLINIC VISIT Patient Name: Charlette Brush Date: 06/20/2016 Contact Type: Face to Face SUBJECTIVE: Patient Findings Positives No Problem Findings, Unexplained INR or factor level change OBJECTIVE INR PROTIME Date Value Ref Range Status 06/20/2016 1.8* 0.86 - 1.14 Final ASSESSMENT / PLAN INR assessment SUB Recheck INR In: 3 WEEKS INR Location Clinic Anticoagulation Summary as of 06/20/2016 INR goal 2.0-3.0 Selected INR 1.8! (06/20/2016) Maintenance plan 10 mg (10 mg x 1) on Mon, Fri; 7.5 mg (7.5 mg x 1) all other days Full instructions 06/20: 10 mg; Otherwise 10 mg on Mon, Fri; 7.5 mg all other days Weekly total 57.5 mg Plan last modified Qing Guy, CHANDLER (06/20/2016) Next INR check 07/11/2016 Target end date Indefinite Indications 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] Anticoagulation Episode Summary INR check location [facility] Preferred lab Send INR reminders to [facility] Comments 7.5mg & 10mg tabs - devaughn dose // APPT CARD ONLY Anticoagulation Care Providers Provider Role Specialty Phone number Lucero Stevenson MD Pediatrics [phone] See the Encounter Report to view Anticoagulation Flowsheet and Dosing Calendar (Go to Encounters tabin chart review, and find the Anticoagulation Therapy Visit) Qing Guy RN EY DOCTOR documented in this encounter Plan of Treatment Upcoming Encounters Date Type Specialty Care Team Description 11/15/2022 Virtual Visit Pharm D Haylie Cheung, [facility] [address] [facility] [place] [address] (Lena max) 11/15/2022 Virtual Visit IM/PedYane Muir MD [address] [facility] [place] [address] (Lena max) 03/03/2023 Virtual Visit Neurology Erlinda Barber MD [address] [facility] [address] [place] [address] (Wo rk) documented as of this encounter Procedures Procedure Name Priority Date/Time Associated Diagnosis Comme nts INR POINT OF CARE Routine 06/20/2016 Pulmonary embolism and Results for this infarction (H) procedure are in the results section . documented in this encounter Results (ABNORMAL) INR point of care (06/20/2016) athologist Signature INR Point of 1.8 (A) 0.86 - [facility] 1.14 [facility] Specimen (Source) Anatomical Location Collection Method / Collectio n Time Received Time / Laterality Volume 06/20/2016 Lucero Stevenson MD LAB - BLOOD ORDERABLES Performing Organization Address City/State/ZIP Code Phon e Number [facility] [address] [place] [address] documented in this encounter Visit Diagnoses Diagnosis Pulmonary embolism and infarction (H) - Primary documented in this encounter Care Teams Chair Pad Maker Relationship Specialty Start Date End Date Lucero Stevenson MD PCP - General Pediatrics 10/11/11 04/22/19 Chastity Montero MD MD Dermatology 09/23/14 [address] [facility] [address] [place] [address] documented as of this encounter
--- OUTSIDE RECORDS SUMMARY | 2022-06-15 13:18 | XMS_ITS | Encounter Summary ---
:1945 Author Organization [facility] Address [address] [place] [address] Care Team Providers Name Role Phone Lucero Stevenson MD Primary Care Provider [phone] Chastity Montero MD Unavailable [phone] Encounter Details Date Type Department Care Team Description 03/28/2016 Anticoagulation Therapy [facility] Pulmonary embolism Visit Yarelis and infarction (H) [address] (Primary Dx) [place] [address] Social [...] this encounter Progress Notes Susie Murphy - 03/28/2016 1:01 PM CDT ANTICOAGULATION FOLLOW-UP CLINIC VISIT Patient Name: Charlette Brush Date: 03/28/2016 Contact Type: Face to Face SUBJECTIVE: Patient Findings Positives No Problem Findings OBJECTIVE INR PROTIME Date Value Ref Range Status 03/28/2016 2.2 Final ASSESSMENT / PLAN INR assessment THER Recheck INR In: 4 WEEKS INR Location Clinic Anticoagulation Summary as of 03/28/2016 INR goal 2.0-3.0 Selected INR 2.2 (03/28/2016) Maintenance plan 10 mg (10 mg x 1) on Fri; 7.5 mg (7.5 mg x 1) all other days Full instructions 10 mg on Fri; 7.5 mg all other days Weekly total 55 mg No change documented Susie Murphy Plan last modified Prudence Austin, CHANDLER (02/08/2016) Next INR check 04/25/2016 Target end date Indefinite Indications 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] Anticoagulation Episode Summary INR check location [facility] Preferred lab Send INR reminders to [facility] Comments 7.5mg & 10mg tabs - devaughn dose // APPT CARD ONLY Anticoagulation Care Providers Provider Role Specialty Phone number Lucero Stevenson MD Pediatrics [phone] Susie Murphy RN documented in this encounter Plan of Treatment Upcoming Encounters Date Type Specialty Care Team Description 11/15/2022 Virtual Visit Pharm Haylie Gonzalez, [facility] [address] [facility] [place] [address] (Lena max) 11/15/2022 Virtual [place] [address] [place] [address] [place] [address] (Lena max) 03/03/2023 Virtual Visit Neurology Erlinda Barber MD [address] [facility] [address] [place] [address] (Lena max) documented as of this encounter Procedures Procedure Name Priority Date/Time Associated Diagnosis Comme nts INR POINT OF CARE Routine 03/28/2016 Pulmonary embolism and Results for this infarction (H) procedure are in the results section . documented in this encounter Results INR point of care (03/28/2016) P athologist Signature INR Point of 2.2 [facility] [place] Specimen (Source) Anatomical Location Collection Method / Collectio n Time Received Time / Laterality Volume 03/28/2016 Lucero Stevenson MD LAB - BLOOD ORDERABLES Performing Organization Address City/State/ZIP Code Phon e Number [facility] [place] [address] [place] [address] documented in this encounter Visit Diagnoses Diagnosis Pulmonary embolism and infarction (H) - Primary documented in this encounter Care Teams Director Of Securities And Real Estate Relationship Specialty Start Date End Date Lucero Stevenson MD PCP - General Pediatrics 10/11/11 04/22/19 Chastity Montero MD MD Dermatology 09/23/[address] [place] [address] [address] [place] [address] documented as of this encounter
--- OUTSIDE RECORDS SUMMARY | 2022-06-15 13:18 | XMS_ITS | Encounter Summary ---
:1945 Author Organization [facility] Address [address] [place] [address] Care Team Providers Name Role Phone Lucero Stevenson MD Primary Care Provider [phone] Chastity Montero MD Unavailable [phone] Encounter Details Date Type Department Care Team Description 11/30/2015 Anticoagulation Therapy [facility] Pulmonary embolism and infarction (H) (Primary Dx); Visit Yarelis Long-term (current) use of a nticoagulants [facility] [place] [address] Social [...] encounter Progress Notes Prudence Austin RN - 11/30/2015 4:26 PM CDT ANTICOAGULATION FOLLOW-UP CLINIC VISIT Patient Name: Charlette Brush Date: 11/30/2015 Contact Type: Face to Face SUBJECTIVE: OBJECTIVE INR PROTIME Date Value Ref Range Status 11/30/2015 2.5 Final ASSESSMENT / PLAN INR assessment THER Recheck INR In: 3 WEEKS INR Location Clinic Anticoagulation Summary as of 11/30/2015 INR goal 2.0-3.0 Selected INR 2.5 (11/30/2015) Maintenance plan 5 mg (10 mg x 0.5) on Mon; 7.5 mg (7.5 mg x 1) all other days Full instructions 5 mg on Mon; 7.5 mg all other days Weekly total 50 mg No change documented Prudence Austin RN Plan last modified Qing Guy RN (08/31/2015) Next INR check 12/21/2015 Target end date Indefinite Indications Long-term (current) use of anticoagulants [Z79.01] [Z79.01] 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] Anticoagulation Episode Summary INR check location [facility] Preferred lab Send INR reminders to [facility] Comments 5mg tabs - devaughn dose // APPT CARD ONLY Anticoagulation Care Providers Provider Role Specialty Phone number Lucero Stevenson MD Pediatrics [phone] Prudence Austin RN documented in this encounter Plan of Treatment Upcoming Encounters Date Type Specialty Care Team Description 11/15/2022 Virtual Visit Pharm Haylie Gonzalez, [facility] [address] [facility] [place] [address] (Wo winter) 11/15/2022 Virtual Visit IM/Peds Yane Barraza MD [address] [facility] [place] [address] (Wo winter) 03/03/2023 Virtual Visit Neurology Erlinda Barber MD [address] [facility] [address] [place] [address] (Wo rk) documented as of this encounter Procedures Procedure Name Priority Date/Time Associated Diagnosis Comme nts INR POINT OF CARE Routine 11/30/2015 Pulmonary embolism and Results for this infarction (H) procedure are in the Long-term (current) use of r esults section. anticoagulants documented in this encounter Results INR point of care (11/30/2015) P athologist Signature INR Point of 2.5 [employer] Specimen (Source) Anatomical Location Collection Method / Collectio n Time Received Time / Laterality Volume 11/30/2015 Lucero Stevenson MD LAB - BLOOD ORDERABLES Performing Organization Address City/State/ZIP Code Phon e Number [facility] [address] [place] [id number] documented in this encounter Visit Diagnoses Diagnosis Pulmonary embolism and infarction (H) - Primary Long-term (current) use of anticoagulant s Encounter for long-term (current) use of anticoagulants documented in this encounter Care Teams Key Person Relationship Specialty Start Date End Date Lucero Stevenson MD PCP - General Pediatrics 10/11/11 04/22/19 Chastity Montero MD MD Dermatology 09/23/14 [address] [facility] [address] [place] [address] documented as of this encounter
--- OUTSIDE RECORDS SUMMARY | 2022-06-15 13:18 | XMS_ITS | Encounter Summary ---
:1945 Author Organization [place] Address [address] [place] [address] Care Team Providers Name Role Phone Lucero Stevenson MD Primary Care Provider Chastity Montero MD Unavailable [phone] Reason for Visit Reason Comments Wellness Visit Encounter Details Date Type Department Care Team Description 01/01/2016 Office Visit [facility] Lucero Stevenson nter for gynecological examination without abnormal finding (Primary Dx); Yarelis Littlejohn MD Essential hypertension, benign; [address] [facility] Dermatitis; [place] [phone] [address] [facility] Pre-diabetes; [phone] RD Morbid obesity, unspecified obesity type (H); [place], [place] [address] Vitamin D deficiency; [phone] (Wo rk) Need for hepatitis C screening test; Visit for screening mammogram; halfway curre nt use of anticoagulant therapy Social [...] Sign Reading Time Taken Comments Blood Pressure 120/78 01/01/2016 8:58 AM CDT Pulse 64 01/01/2016 8:58 AM CDT Temperature 36.9 ??C (98.4 ??F) 01/01/2016 8:58 AM CDT Respiratory Rate - - Oxygen Saturation 91% 01/01/2016 8:58 AM CDT Inhaled Oxygen Concentration - - Weight 183.8 kg (405 lb 5 oz) 01/01/2016 8:58 AM CDT Height 167.6 cm (5' 6) 01/01/2016 8:58 AM CDT Body Mass Index 65.42 01/01/2016 8:58 AM CDT documented in this encounter Patient Instructions Patient InstructionsBee Hensley, ROAD PRODUCTION GENERAL MANAGER - 12/31/2015 4:36 PM CDT Preventive Health Recommendations Female Ages 65 [...] encounter Progress Notes Lucero Stevenson MD - 12/31/2015 4:35 PM CDT SUBJECTIVE: Charlette Brush is a 70 year old female who presents for Preventive Visit. Are you in the first 12 months of your Medicare coverage? No Physical Annual: Getting at least 3 servings of Calcium per day:: Yes Bi-annual eye exam:: Yes Dental care twice a year:: Yes Sleep apnea or symptoms of sleep apnea:: Sleep apnea Diet:: Low salt and Other Frequency of exercise:: 1 day/week Duration of exercise:: Less than 15 minutes Taking medications regularly:: Yes Medication side effects:: None Additional concerns today:: YES (follow up on weight issues) COGNITIVE SCREEN 1) Repeat 3 items (Banana, [place], Chair) 2) Clock draw: NORMAL 3) 3 item recall: Recalls 3 objects Results: 3 items recalled: COGNITIVE IMPAIRMENT LESS LIKELY Mini-CogTM Copyright S Le. Licensed by the author for use in [facility]; reprintedwith permission ([email or web address]). All rights reserved. 1) recurring non healing wound on back, following with derm and wound care. All Histories reviewed and updated in [facility] as appropriate. History Substance Use Topics ??? Smoking status: Never Smoker ??? Smokeless tobacco: Never Used ??? Alcohol Use: No The patient does not drink >3 drinks per day nor >7 drinks per week. Today's PHQ-2 Score: PHQ-2 (??1999 [employer]) 12/31/2015 Q1: Little interest or pleasure in doing things 0 Q2: Feeling down, depressed or hopeless 0 PHQ-2 Score 0 Little interest or pleasure in doing things - Feeling down, depressed or hopeless - PHQ-2 Score - Do you feel safe in your environment - YES Do you have a Health Care Directive?: Yes: Advance Directive has been received and scanned. Current providers sharing in care for this patient include: Patient Care Team: Lucero Stevenson MD as PCP - General (Pediatrics) Chastity Montero MD as MD (Dermatology) ?? Hearing impairment: Yes, pt has hearing aid ?? Ability to successfully perform activities of daily living: Yes, no assistance needed ?? Fall risk: Fallen 2 or more times in the past year?: No Any fall with injury in the past year?: No ?? Home safety: none identified The following health maintenance items are reviewed in [facility] and correct as of today: Health Maintenance Topic Date Due ??? HEPATITIS C SCREENING 01/05/1963 ??? MICROALBUMIN Q1 YEAR( NO INBASKET) 12/23/2014 ??? MAMMO Q1 YR NO INBASKET MESSAGE 01/09/2015 ??? DEXA Q3 YR 12/14/2015 ??? BMP Q1 YR (NO INBASKET) 12/31/2015 ??? A1C Q1 YR (NO INBASKET) 12/31/2015 ??? MEDICARE ANNUAL WELLNESS VISIT 12/31/2015 ??? OP ANNUAL INR REFERRAL 12/31/2015 ??? FALL RISK ASSESSMENT 12/31/2015 ??? INFLUENZA VACCINE (SYSTEM ASSIGNED) 03/17/2016 ??? LIPID MONITORING Q5 YEARS (NO INBASKET) 05/31/2016 ??? ADVANCE DIRECTIVE PLANNING Q5 YRS (NO INBASKET) 08/11/2016 ??? TETANUS Q10 YR 12/30/2024 ??? COLONOSCOPY Q10 YR INBASKET MESSAGE 01/13/2025 ??? PNEUMOVAX ([facility] ASSIGNED) Completed Mammogram Screening: Patient over age 50, mutual decision to screen reflected in health maintenance. Hypertension Follow-up ?? Outpatient blood pressures are not being checked. ?? Low Salt Diet: no added salt, low salt ROS: Constitutional, HEENT, cardiovascular, pulmonary, gi and gu systems are negative, except as otherwise noted. Problem list, Medication list, Allergies, and Medical/Social/Surgical histories reviewed in [facility] andupdated as appropriate. OBJECTIVE: BP 120/78 mmHg Pulse 64 Temp(Src) 98.4 ??F (36.9 ??C) (Tympanic) Ht 5' 6 (1.676 m) Wt 405 lb 5 oz (183.849 kg) BMI 65.45 kg/m2 SpO2 91% Estimated body mass index is 65.45 kg/(m^2) as calculated from the following: Height as of this encounter: 5' 6 (1.676 m). Weight as of this encounter: 405 lb 5 oz (183.849 kg). EXAM: GENERAL: morbidly obese, alert and no distress EYES: Eyes grossly [...] peripheral edemaand peripheral pulses strong ABDOMEN: soft, nontender and bowel sounds normal. Unable to evaluate hsm or masses due to body habitus. MS: no gross musculoskeletal defects noted, no edema SKIN: no suspicious lesions. Yeast rash in left groin. Non healing ulcer left low back. NEURO: Normal strength and tone, mentation intact and speech normal PSYCH: mentation appears normal, affect normal/bright ASSESSMENT / PLAN: (Z01.419) Encounter for gynecological examination without abnormal finding (primary encounter diagnosis) -I reviewed morbidly obese bmi with patient, recommended diet and exercise changes based on bmi and current lifestyle/habits. -I reviewed pts bp which is currently at goal -we discussed health maintenance, and reviewed and updated the health maintenance section in the chart -we discussed safety and patients halfway health risks. (I10) Essential hypertension, benign -bp well controlled on current meds -check labs to evaluate side effects/end organ damage -if labs normal would not change bp meds Plan: Microalbumin quantitative, random urine, triamterene-hydrochlorothiazide (DYAZIDE) 37.5-25 MG per capsule, losartan (COZAAR) 100 MG tablet, atenolol (TENORMIN) 25 MG tablet, Comprehensive metabolic panel (L30.9) Dermatitis -refill Plan: hydrocortisone 2.5 % ointment (R73.09) Pre-diabetes -check labs Plan: Hemoglobin A1c, Comprehensive metabolic panel (E66.01) Morbid obesity, unspecified obesity type (H) -continuing in weight watchers Plan: Lipid Profile with reflex to direct LDL (E55.9) Vitamin D deficiency Plan: Vitamin D Deficiency (Z11.59) Need for hepatitis C screening test Plan: Hepatitis C antibody (Z12.31) Visit for screening mammogram Plan: MA Screening Digital 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 Practitioner is supportive of decision. COUNSELING: Reviewed preventive health counseling, as reflected in patient instructions Healthy diet/nutrition Vision screening Hearing screening Dental care BP Screening: Last 3 BP Readings: BP Readings from Last 3 Encounters: 01/01/16 120/78 10/28/15 172/100 09/15/15 167/72 The following was recommended to the patient: Re-screen BP within a year and recommended lifestyle modifications Estimated body mass index is 65.45 kg/(m^2) as calculated from the following: Height as of this encounter: 5' 6 (1.676 m). Weight as of this encounter: 405 lb 5 oz (183.849 kg). Weight management plan: Discussed healthy diet [...] of care and provided an AVS. The Basic Care Plan (routine screening as documented in Health Maintenance) for Charlette meets the Care Plan requirement. This Care Plan has been established and reviewed with the Patient. Counseling Resources: ATP IV Guidelines Pooled Cohorts Equation Calculator Breast Cancer Risk Calculator FRAX Risk Assessment ICSI Preventive Guidelines Dietary Guidelines for Americans, 2009 [employer] MyPlate ASA Prophylaxis Lung CA Screening Lucero Stevenson MD [facility] documented in this encounter Nursing Notes Bee Hensley CMA - 01/01/2016 9:01 AM CDT Chief Complaint Patient presents with ??? Wellness Visit Initial BP 120/78 mmHg Pulse 64 Temp(Src) 98.4 ??F (36.9 ??C) (Tympanic) Ht 5' 6 (1.676 m) Wt 405 lb 5 oz (183.849 kg) BMI 65.45 kg/m2 SpO2 91% Estimated body mass index is 65.45 kg/(m^2) as calculated from the following: Height as of this encounter: 5' 6 (1.676 m). Weight as of this encounter: 405 lb 5 oz (183.849 kg). BP completed using cuff size: large-radial BP taken Bee Hensley CMA documented in this encounter Plan of Treatment Upcoming Encounters Date Type Specialty Care Team Description 11/15/2022 Virtual Visit Haylie Wakefield, [facility] [address] [facility] [place] [address] (Wo rk) 11/15/2022 Virtual Visit IM/Peds Yane Barraza MD [address] [facility] [place] [address] (Wo rk) 03/03/2023 Virtual Visit Neurology Erlinda Barber MD [address] [facility] [address] [place] [address] (Lena max) documented as of this encounter Procedures Procedure Name Priority Date/Time Associated Comments Diagnosis VITAMIN D DEFICIENCY Routine 01/01/2016 9:30 AM Vitamin D R esults for this SCREENING CDT deficiency procedure are i n the results section. LIPID REFLEX TO DIRECT Routine 01/01/2016 9:30 AM Morbid obesi ty, Results for this LDL PANEL CDT unspecified obesity procedur e are in type (H) the results section. HEPATITIS C ANTIBODY Routine 01/01/2016 9:30 AM Need for hepat itis Results for this CDT C screening test procedure a re in the results section. HEMOGLOBIN A1C Routine 01/01/2016 9:30 AM Pre-diabetes Results for this CDT procedure are i n the results section. COMPREHENSIVE Routine 01/01/2016 9:30 AM Essential Results for this METABOLIC PANEL CDT hypertension, procedure a re in benign the results Pre-diabetes section. ALBUMIN RANDOM URINE Routine 01/01/2016 9:29 AM Essential R esults for this QUANTITATIVE CDT hypertension, procedure are in benign the results section. documented in this encounter Results MA Screen Bilateral w/Sven (01/05/2016 1:38 PM CDT) Anatomical Region Laterality Modality Breast Bilateral Mammography Specimen (Source) Anatomical Location Collection Method / Collectio n Time Received Time / Laterality Volume Impressions 01/05/2016 1:49 PM CDT IMPRESSION: BI-RADS CATEGORY: 1 - ??Negative. RECOMMENDED FOLLOW-UP: Annual Mammograph y. ?? ALONDRA GALAVIZ MD Narrative 01/05/2016 1:49 PM CDT SCREENING MAMMOGRAM, BILATERAL, DIGITAL w/CAD and TOMOSYNTHESIS, 01/05/2016 1:48 PM BREAST DENSITY: Scattered fibroglandular densities. CLINICAL INFORMATION: ??screen mammo, En counter for screening mammogram for malignant neoplasm of breast, 014, 11/26/2010 FINDINGS: Negative. Stable exam. Screeni ng exam in one year recommended. Procedure Note Alondra Galaviz MD - 01/05/2016Formatt ing of this note might be different from the original. SCREENING MAMMOGRAM, BILATERAL, DIGITAL w/CAD and TOMOSYNTHESIS, 01/05/2016 1:48 PM BREAST DENSITY: Scattered fibroglandular densities. CLINICAL INFORMATION: screen mammo, [place] unter for screening mammogram for malignant neoplasm of breast, 014, 11/26/2010 FINDINGS: Negative. Stable exam. Screeni ng exam in one year recommended. IMPRESSION: BI-RADS CATEGORY: 1 - Negati ve. RECOMMENDED FOLLOW-UP: Annual Mammograph yHarpal GALAVIZ MD Lucero Stevenson MD IMG MAMMOGRAPHY ORDERABLES (ABNORMAL) Comprehensive metabolic panel (01/01/2016 9:30 AM CDT) [facility] Method Time Signature Sodium 139 133 - 144 [facility] mmol/L [facility] Potassium 3.9 3.4 - 5.3 [facility] mmol/L [facility] Chloride 106 94 - 109 [facility] mmol/L [facility] Carbon Dioxide 28 20 - 32 [facility] mmol/L [facility] Anion Gap 5 3 - 14 [facility] mmol/L [facility] Glucose 94 70 - 99 [facility] mg/dL [facility] Urea Nitrogen 13 7 - 30 [facility] mg/dL [facility] Creatinine 0.61 0.52 - [facility] 1.04 CLINICS mg/dL [facility] GFR Estimate >90 >60 [facility] Non GFR Calc mL/min/1. CLINICS 7m2 [facility] GFR Estimate If >90 >60 [facility] Black GFR Calc mL/min/1. CLIN ICS 7m2 [facility] Calcium 8.9 8.5 - [facility] 10.1 CLINICS mg/dL [facility] Bilirubin Total 0.6 0.2 - 1.3 [facility] mg/dL [facility] Albumin 3.3 (L) 3.4 - 5.0 [facility] g/dL [facility] Protein Total 8.4 6.8 - 8.8 [facility] g/dL [facility] Alkaline 89 40 - 150 [facility] Phosphatase U/L [facility] ALT 23 0 - 50 [facility] U/L [facility] AST 19 0 - 45 [facility] U/L [facility] Specimen Anatomical Collection Method Collection Time Receive d Time (Source) Location / / Volume Laterality Blood specimen 01/01/2016 9:30 AM 016 9:35 (specimen) CDT AM CDT Lucero Stevenson MD LAB - BLOOD ORDERABLES Performing Organization Address City/State/ZIP Code Phon e Number [facility] [place] [address] [place] [address] Vitamin D Deficiency (01/01/2016 9:30 AM CDT) P athologist Signature Vitamin D 54 20 - 75 [facility] Deficiency ug/L [facility] screening [facility] Comment: Season, race, dietary intake, and treatm ent affect the concentration of 18-eoesxsu-Qvlibrz D. Values may decrea se during winter months and increase during summer months. Values 20-29 ug/L may indicate Vitamin D insufficiency and values <20 ug/L may indicate Vitami n D deficiency. Vitamin D determination is routinely pe rformed by an immunoassay specific for 25 hydroxyvitamin D3. ??If an individua l is on vitamin D2 (ergocalciferol) supplementation, please specify 25 [place] v itamin D2 and D3 level determination by LCMSMS test [id number]. Specimen Anatomical Collection Method Collection Time Receive d Time (Source) Location / / Volume Laterality Blood specimen 01/01/2016 9:30 AM 016 9:35 (specimen) CDT AM CDT Lucero Stevenson MD LAB - BLOOD ORDERABLES Performing Organization Address City/State/ZIP Code Phon e Number [facility] [address] [place] [address] [facility] Hepatitis C antibody (01/01/2016 9:30 AM CDT) Component Value Ref Test Analysis Performed At Patholo gist Range Method Time Signature Hepatitis C Nonreactive NR [facility] Antibody Assay performance character istics have not been established for newborns, [facility] infants, and children [facility] Specimen Anatomical Collection Method Collection Time Receive d Time (Source) Location / / Volume Laterality Blood specimen 01/01/2016 9:30 AM 016 9:35 (specimen) CDT AM CDT Lucero Stevenson MD LAB - BLOOD ORDERABLES Performing Organization Address City/State/ZIP Code Phon e Number [facility] [address] [place] [address] [facility] (ABNORMAL) Lipid Profile with reflex to direct LDL (01/01/2016 9:30 AM CDT) Analysis Performed At Patho logist Time Signature Cholesterol 146 <200 mg/dL [facility] [place] Triglycerides 159 (H) <150 mg/dL [facility] [place] Comment: Borderline high: ??150-199 mg/dl High: ? 200-499 mg/dl Very high: ? >499 mg/dl Fasting specimen HDL Cholesterol 50 >49 mg/dL [facility] LDL Cholesterol Calculated 64 <100 mg/dL [facility] Comment: Desirable: <100 mg/dl Non HDL Cholesterol 96 <130 mg/dL [facility] [place] Specimen Anatomical Collection Method Collection Time Receive d Time (Source) Location / / Volume Laterality Blood specimen 01/01/2016 9:30 AM 016 9:35 (specimen) CDT AM CDT Lucero Stevenson MD LAB - BLOOD ORDERABLES Performing Organization Address City/[facility]/ZIP Code Phon e Number [facility] [address] [place] [address] Hemoglobin A1c (01/01/2016 9:30 AM CDT) athologist Signature Hemoglobin A1C 5.4 4.3 - 6.0 [employer] Specimen Anatomical Collection Method Collection Time Receive d Time (Source) Location / / Volume Laterality Blood specimen 01/01/2016 9:30 AM 016 9:35 (specimen) CDT AM CDT Lucero Stevenson MD LAB - BLOOD ORDERABLES Performing Organization Address City/[facility]/ZIP Code Phon e Number [facility] [address] [place] [address] Microalbumin quantitative, random urine (01/01/2016 9:29 AM CDT) P athologist Signature Creatinine 52 mg/dL [facility] Urine [facility] Albumin Urine 6 mg/L [facility] mg/L [facility] Albumin Urine 11.06 0 - 25 [facility] mg/g Cr mg/g Cr [facility] Specimen Anatomical Collection Method Collection Time Receive d Time (Source) Location / / Volume Laterality Urine specimen 01/01/2016 9:29 AM 016 9:34 (specimen) CDT AM CDT Lucero Stevenson MD LAB - URINE ORDERABLES Performing Organization Address City/State/ZIP Code Phon e Number [facility] [address] [place] [phone] [facility] [address] [place] [address], [facility] [phone] documented in this encounter Visit Diagnoses Diagnosis Encounter for gynecological examination without abnormal finding - Primary Routine gynecological examination Essential hypertension, benign Dermatitis Contact dermatitis and other eczema, due to unspecified cause Pre-diabetes Other abnormal glucose Morbid obesity, unspecified obesity type (H) Vitamin D deficiency Unspecified vitamin D deficiency Need for hepatitis C screening test Special screening examination for other specified viral diseases Visit for screening mammogram 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
--- OUTSIDE RECORDS SUMMARY | 2022-06-15 13:18 | XMS_ITS | Encounter Summary ---
:1945 Author Organization [place] Address [address] [place] [address] Care Team Providers Name Role Phone Lucero Stevenson MD Primary Care Provider [phone] Chastity Montero MD Unavailable [phone] Reason for Visit (Routine) - Closed Specialty Diagnoses / Procedures Referred By Contact Refer red To Contact Radiology / Radiology. Diagnoses prev [facility] sven [facility] Procedures MA SCREENING DIGITAL BILATERAL [address] [facility], [address] [place] [address] Phone: Fax: Referral ID Status Reason Start Date Expiration Date Visits Requ ested Visits Authorized [id number] Closed 01/01/2016 12/31/2016 1 1 Encounter Details Date Type Department Care Team Description 01/05/2016 Hospital Encounter [facility] Lavern Stevenson Visit for screening Nicole [facility] MD [place] mamm[facility] Center [facility]3] [address] [place], [place] [phone] Social History Tobacco Use Types Packs/Day Years [...] Take 1 tablet (25 180 tablet 3 201501/03/2017 MG tabletIndications: mg) by mouth 2 times [...] Take 1 tablet (100 90 tablet 3 12/24/2016 tabletIndications: mg) by mouth daily Essential hypertension, benign omeprazole (PRILOSEC) 40 Take 1 capsule (40 90 capsule 1 08/201501/03/2017 MG capsuleIndications: mg) by mouth daily Gastritis Take 30-60 minutes before a meal. ORDER FOR Equipment being ordered: CPAP mask [...] Take 1 capsule by 90 capsule 3 12/1512/24/2016 hiazide (DYAZIDE) mouth every morning 37.5-25 MG per capsuleIndications: Essential hypertension, benign warfarin (COUMADIN) 10 Take 5mg M or as 90 tablet 1 015 02/08/2016 MG tabletIndications: directed by INR retirement current use of clinic anticoagulant therapy warfarin (COUMADIN) 7.5 Take 7.5mg TWTFSS or 90 tablet 0 02/08/2016 MG tabletIndications: as directed by INR retirement current use of Clinic. anticoagulant therapy documented as of this encounter Plan of Treatment Upcoming Encounters Date Type Specialty Care Team Description 11/15/2022 Virtual Visit Pharm D Haylie Cheung, [facility] [address] [place] [address] (Wo rk) 11/15/2022 Virtual Visit [place] [address] [place] [address] [place] [address] (Wo rk) 03/03/2023 Virtual Visit Neurology Erlinda Barber MD [address] [facility] [address] [place] [address] (Wo rk) documented as of this encounter Procedures Procedure Name Priority Date/Time Associated Diagnosis Comme nts MA SCREENING Routine 01/05/2016 1:38 PM Visit for screening Re sults for this [...] Scattered fibroglandular densities. CLINICAL INFORMATION: screen mammo, [place] unter for screening mammogram for malignant neoplasm of breast, 014, 11/26/2010 FINDINGS: Negative. Stable exam. Screeni ng exam in one year recommended. IMPRESSION: BI-RADS CATEGORY: 1 - Negati ve. RECOMMENDED FOLLOW-UP: Annual Mammograph y. ALONDRA GALAVIZ MD Lucero Stevenson MD IMG MAMMOGRAPHY ORDERABLES documented in this encounter Visit Diagnoses Diagnosis Visit for screening mammogram Other screening mammogram documented in this encounter Care Teams Family Service Caseworker Relationship Specialty Start Date End Date Lucero Stevenson MD PCP - General Pediatrics 10/11/11 04/22/19 Chastity Montero MD MD Dermatology 09/23/[address] [place] [address] documented as of this encounter
--- OUTSIDE RECORDS SUMMARY | 2022-06-15 13:18 | XMS_ITS | Encounter Summary ---
:1945 Author Organization [facility] Address [address] [place] [address] Care Team Providers Name Role Phone Lucero Stevenson MD Primary Care Provider [phone] Chastity Montero MD Unavailable [phone] Reason for Visit Reason Comments Flu Shot Encounter Details Date Type Department Care Team Description 04/25/2016 Allied Health/Nurse [facility] Eag an Flu Shot Visit [address] [facility] [place] [address] Social History Tobacco Use [...] documented as of this encounter Progress Notes Eliza Agustin, BLAZE - 04/25/2016 10:31 AM CDT Injectable Influenza Immunization Documentation 1. Is the person to be vaccinated sick today? No 2. Does the person to be vaccinated have an allergy to eggs or to a component of the vaccine? No 3. Has the person to be vaccinated today ever had a serious reaction to influenza vaccine in the past? No 4. Has the person to be vaccinated ever had Guillain-[place] syndrome? No Form completed by self documented in this encounter Plan of Treatment Upcoming Encounters Date Type Specialty Care Team Description 11/15/2022 Virtual Visit Pharm D Haylie Cheung, [facility] [address] [facility] [address] [place], [place] [phone] (Wo rk) 11/15/2022 Virtual Visit IM/Peds Yane Barraza MD [address] [facility] [place] [phone] (Wo rk) 03/03/2023 Virtual Visit Neurology Erlinda Barber MD 420 [facility] [address] [place], [place] [phone] (Wo rk) documented as of this encounter Visit Diagnoses Diagnosis Need for prophylactic vaccination and in oculation against influenza - Primary documented in this encounter Care Teams Donor Relations Officer Relationship Specialty Start Date End Date Lucero Stevenson MD PCP - General Pediatrics 10/11/11 04/22/19 Chastity Montero MD MD Dermatology 09/23/14 420 [facility] [address] [place] [address] documented as of this encounter
--- OUTSIDE RECORDS SUMMARY | 2022-06-15 13:18 | XMS_ITS | Encounter Summary ---
:1945 Author Organization [facility] Address [address] [place] [address] Care Team Providers Name Role Phone Lucero Stevenson MD Primary Care Provider [phone] Chastity Montero MD Unavailable [phone] Encounter Details Date Type Department Care Team Description 11/09/2015 Anticoagulation Therapy [facility] Pulmonary embolism and infarction (H) (Primary Dx); Visit Yarelis Long-term (current) use of a nticoagulants [facility] [place] [address] Social History Tobacco [...] this encounter Progress Notes Susie Murphy - 11/09/2015 12:16 PM CDT ANTICOAGULATION FOLLOW-UP CLINIC VISIT Patient Name: Charlette Brush Date: 11/09/2015 Contact Type: Face to Face SUBJECTIVE: Patient Findings Positives Medication Changes (doxycycline for infection), Antibiotic use or infection (sore on backwith staph) OBJECTIVE INR PROTIME Date Value Ref Range Status 11/09/2015 2.3 Final ASSESSMENT / PLAN INR assessment THER Recheck INR In: 2 WEEKS INR Location Clinic Anticoagulation Summary as of 11/09/2015 INR goal 2.0-3.0 Selected INR 2.3 (11/09/2015) Maintenance plan 5 mg (10 mg x 0.5) on Mon; 7.5 mg (7.5 mg x 1) all other days Full instructions 5 mg on Mon; 7.5 mg all other days Weekly total 50 mg No change documented Susie Murphy Plan last modified Qing Guy, CHANDLER (08/31/2015) Next INR check 11/23/2015 Target end date Indefinite Indications Long-term (current) use of anticoagulants [Z79.01] [Z79.01] Pulmonary embolism and infarction (HCC) [I26.99] Anticoagulation Episode Summary INR check location [facility] Preferred lab Send INR reminders to [facility] Comments 5mg tabs - devaughn dose // APPT CARD ONLY Anticoagulation Care Providers Provider Role Specialty Phone number Lucero Stevenson MD Pediatrics [phone] Susie Murphy RN documented in this encounter Plan of Treatment Upcoming Encounters Date Type Specialty Care Team Description 11/15/2022 Virtual Visit Pharm D Haylie Cheung, [facility] [address] [facility] [place] [address] (Lena max) 11/15/2022 Virtual Visit IM/Peds Yane Barraza MD 25[address] [facility] [place] [address] (Lena max) 03/03/2023 Virtual Visit Neurology Erlinda Barber MD 420 [facility] 295 [place] [address] (Wo rk) documented as of this encounter Procedures Procedure Name Priority Date/Time Associated Diagnosis Comme nts INR POINT OF CARE Routine 11/09/2015 Pulmonary embolism and Results for this infarction (H) procedure are in the Long-term (current) use of r esults section. anticoagulants documented in this encounter Results INR point of care (11/09/2015) athologist Signature INR Point of 2.3 [facility] Specimen (Source) Anatomical Location Collection Method / Collectio n Time Received Time / Laterality Volume 11/09/2015 Lucero Stevenson MD LAB - BLOOD ORDERABLES Performing Organization Address City/State/ZIP Code Phon e Number [facility] [address] [place] [address] documented in this encounter Visit Diagnoses Diagnosis Pulmonary embolism and infarction (H) - Primary Long-term (current) use of anticoagulant s Encounter for long-term (current) use of anticoagulants documented in this encounter Care Teams Mortgage Loan Officer Relationship Specialty Start Date End Date Lucero Stevenson MD PCP - General Pediatrics 10/11/11 04/22/19 Chastity Montero MD MD Dermatology 09/23/14 [address] [facility] 98 [place] [address] documented as of this encounter
--- OUTSIDE RECORDS SUMMARY | 2022-06-15 13:18 | XMS_ITS | Encounter Summary ---
:1945 Author Organization [facility] Address [address] [place] [address] Care Team Providers Name Role Phone Lucero Stevenson MD Primary Care Provider [phone] Chastity Montero MD Unavailable [phone] Encounter Details Date Type Department Care Team Description 08/01/2016 Anticoagulation Therapy [facility] Pulmonary embolism Visit [facility] (H) [address] [place] [address] (Primary D x) [facility] [address] [place] [address] Social [...] encounter Progress Notes Qing Guy RN - 08/01/2016 11:09 AM CST ANTICOAGULATION FOLLOW-UP CLINIC VISIT Patient Name: Charlette Brush Date: 08/01/2016 Contact Type: Face to Face SUBJECTIVE: Patient Findings Positives No Problem Findings OBJECTIVE INR PROTIME Date Value Ref Range Status 08/01/2016 2.2* 0.86 - 1.14 Final ASSESSMENT / PLAN INR assessment THER Recheck INR In: 4 WEEKS INR Location Clinic Anticoagulation Summary as of 08/01/2016 INR goal 2.0-3.0 Selected INR 2.2 (08/01/2016) Maintenance plan 10 mg (10 mg x 1) on Mon, Fri; 7.5 mg (7.5 mg x 1) all other days Full instructions 10 mg on Mon, Fri; 7.5 mg all other days Weekly total 57.5 mg No change documented Qing Guy, RN Plan last modified Qing Guy RN (06/20/2016) Next INR check 08/29/2016 Target end date Indefinite Indications 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] Anticoagulation Episode Summary INR check location [facility] Preferred lab Send INR reminders to [facility] Comments 7.5mg & 10mg tabs - devaughn dose // APPT CARD ONLY Anticoagulation Care Providers Provider Role Specialty Phone number Lucero Stevenson MD Pediatrics [phone] See the Encounter Report to view Anticoagulation Flowsheet and Dosing Calendar (Go to Encounters tabin chart review, and find the Anticoagulation Therapy Visit) Qing Guy RN MINE INSPECTOR documented in this encounter Plan of Treatment Upcoming Encounters Date Type Specialty Care Team Description 11/15/2022 Virtual Visit Pharm D Haylie Cheung, [facility] 14[address] [facility] [place] [address] (Lena max) 11/15/2022 Virtual Visit IM/Yane Mathias MD 02[address] [facility] [place] [phone] (Lena max) 03/03/2023 Virtual Visit Neurology Erlinda Barber MD 420 [facility] 295 [place], [place] [address] (Wo rk) documented as of this encounter Procedures Procedure Name Priority Date/Time Associated Diagnosis Comme nts INR POINT OF CARE Routine 08/01/2016 Pulmonary embolism and Results for this infarction (H) procedure are in the results section . documented in this encounter Results (ABNORMAL) INR point of care (08/01/2016) athologist Signature INR Point of 2.2 (A) 0.86 - [facility] 1.14 [facility] Specimen (Source) Anatomical Location Collection Method / Collectio n Time Received Time / Laterality Volume 08/01/2016 Lucero Stevenson MD LAB - BLOOD ORDERABLES Performing Organization Address City/State/ZIP Code Phon e Number [facility] [address] [place] [address] documented in this encounter Visit Diagnoses Diagnosis Pulmonary embolism and infarction (H) - Primary documented in this encounter Care Teams Coffee Weigher Relationship Specialty Start Date End Date Lucero Stevenson MD PCP - General Pediatrics 10/11/11 04/22/19 Chastity Montero MD MD Dermatology 09/23/14 [address] [facility] 98 [place] [address] documented as of this encounter
--- OUTSIDE RECORDS SUMMARY | 2022-06-15 13:18 | XMS_ITS | Encounter Summary ---
:1945 Author Organization [facility] Address [address] [place] [address]. [place] [address] Care Team Providers Name Role Phone Lucero Stevenson MD Primary Care Provider [phone] Chastity Montero MD Unavailable [phone] Reason for Visit Reason Comments RECHECK pap dl Encounter Details Date Type Department Care Team Description 01/22/2016 Office Visit [facility] Jem Watts MD [facility] (obstructive sleep [facility] [address] apnea) (Primary Dx) [address] [address] [place] [address] [place] [address] (Work) [phone] Social History Tobacco Use Types Packs/Day Years [...] Sign Reading Time Taken Comments Blood Pressure 149/66 01/22/2016 11:00 AM CDT Pulse 64 01/22/2016 11:00 AM CDT Temperature 36.9 ??C (98.4 ??F) 01/22/2016 11:00 AM CDT Respiratory Rate - - Oxygen Saturation 93% 01/22/2016 11:00 AM CDT Inhaled Oxygen Concentration - - Weight 182.3 kg (402 lb) 01/22/2016 11:00 AM CDT Height 167.6 cm (5' 5.98) 01/22/2016 11:00 AM CDT Body Mass Index 64.92 01/22/2016 11:00 AM CDT documented in this encounter Patient Instructions Patient InstructionsVanLisa alvares - 01/22/2016 11:24 AM CDT Your BMI is Body mass index is 64.92 kg/(m^2). Weight management is a personal decision. [...] is considered obese. More than two-thirds of [place] adults are considered overweight or obese. Being [...] plan. documented in this encounter Progress Notes Jem Watts MD - 01/22/2016 11:54 AM CDT SLEEP CLINIC PROGRESS NOTE DATE OF SERVICE: 01/22/2016 CHIEF COMPLAINT: Follow for obstructive sleep apnea. HISTORY OF PRESENT ILLNESS: Ms. Marzena Brush has severe obstructive sleep apnea with her sleep studyfrom 12/08/2011 showing an apnea-hypopnea index of 45.6 per hour and RDI of 74.8 per hour. She is onCPAP therapy at a pressure of 11 cm of water and returns for a routine followup visit. The patient has used CPAP regularly with significant improvement in her sleep quality and daytime alertness. She feels refreshed on waking up and denies any significant daytime fatigue or sleepiness. I have reviewed a download from her device. She has demonstrated 100% compliance and an average daily usage of 7 hours and 46 minutes. The residual AHI is normal at 0.1 per hour. I counseled the patient regarding the download findings, benefits of ongoing treatment of her sleep apnea were reviewed. She was advised to continue regular compliance with treatment. IMPRESSION: Severe obstructive sleep apnea. TREATMENT PLAN: 1. Continue with CPAP therapy at a pressure of 11 cm of water. 2. Routine followup in a year's time is advised. A total of 15 minutes were spent with this patient, with more than 50% counseling. JEM WATTS MD MT: SS Name: MARZENA BRUSH Account: [id number] : 1945 Visit Date: 01/22/2016 Document: [id number] cc: Lucero Stevenson MD documented in this encounter Plan of Treatment Upcoming Encounters Date Type Specialty Care Team Description 11/15/2022 Virtual Visit Pharm Haylie Gonzalez, [facility] [address] [facility] [address] [place] [phone] (Wo rk) 11/15/2022 Virtual Visit IM/Peds Yane Barraza MD 3305 [facility] [place] [phone] (Wo rk) 03/03/2023 Virtual Visit Neurology Erlinda Barber MD 420 [facility] 295 [place], [place] [address] (Wo rk) documented as of this encounter Visit Diagnoses Diagnosis CEFERINO (obstructive sleep apnea) - Primary Obstructive sleep apnea (adult) (pediatr ic) documented in this encounter Care Teams Pants Presser Automatic Relationship Specialty Start Date End Date Lucero Stevenson MD PCP - General Pediatrics 10/11/11 04/22/19 Chastity Montero MD MD Dermatology 09/23/14 420 [facility] 98 [place], [place] [address] documented as of this encounter
--- OUTSIDE RECORDS SUMMARY | 2022-06-15 13:18 | XMS_ITS | Encounter Summary ---
:1945 Author Organization [facility] Address [address] [place] [address] Care Team Providers Name Role Phone Lucero Stevenson MD Primary Care Provider [phone] Chastity Montero MD Unavailable [phone] Reason for Visit Reason Onset Date Comments Refill Request 11/14/2015 warfarin (COUMADIN) 7.5 MG Encounter Details Date Type Department Care Team Description 11/14/2015 Refill [facility] Lucero Willard Refill Request 1440 [facility] MD Annetta (warfarin (COUMADIN) [place] [address] [place] 7.5 MG) [phone] [address] [place], [place] [address] (Wo rk) Social History [...] Miscellaneous Notes Telephone Encounter - Qing Guy, CHANDLER - 11/17/2015 11:01 AM CDT Approved x 1 with no refills, patient needs to be seen in December. Qing Guy RN Telephone Encounter - Akbar Oconnell - 11/14/2015 4:46 PM CDT warfarin (COUMADIN) 7.5 MG Last Written Prescription Date: 05/19/15 Last Fill Qty: 90, # refills: 1 Last Office Visit with [facility], [facility] or [facility] prescribing provider: 12/30/14 Date and Result of Last PT/INR: INR 2.3 11/09/2015 INR 1.9 10/26/2015 INR 2.90 10/18/2013 INR 2.38 04/14/2012 documented in this encounter Plan of Treatment Upcoming Encounters Date Type Specialty Care Team Description 11/15/2022 Virtual Visit Pharm D Haylie Cheung, [facility] [address] [place] [address] (Wo rk) 11/15/2022 Virtual [place] [address] [place] [address] [place] [phone] (Wo rk) 03/03/2023 Virtual Visit Neurology Erlinda Barber MD 420 [facility] 295 [place] [address] (Wo rk) documented as of this encounter 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
--- OUTSIDE RECORDS SUMMARY | 2022-06-15 13:18 | XMS_ITS | Encounter Summary ---
:1945 Author Organization [facility] Address [address] [place] [address] Care Team Providers Name Role Phone Lucero Stevenson MD Primary Care Provider [phone] Chastity Montero MD Unavailable [phone] Reason for Referral Specialty Diagnoses / Procedures Referred By Contact Refer red To Contact [address] [place] [address] Referral ID Status Reason Start Date Expiration Date Visits Requ ested Visits Authorized Scheduling Instructions ANTICOAGULATION CLINIC COLLABORATIVE PRA CTICE AGREEMENT The following represents a collaborative practice agreement among the physicians of the Clinic and staff of the Anticoagulat ion Clinic Service ([facility]) Physicians shall: 1. Refer patients requiring anticoagulat ion to a specialty service staffed by personnel of Pharmacy Services and super vised by Clinic physicians. 2. Respond to questions and referrals fr pharmacy staff regarding delinquent or difficult patients. 3. Inform the [facility] staff when a new [...] Initiate vitamin K therapy when sergio cated. Specialty Diagnoses / Procedures Referred By Contact Pamela mcqueen To Contact [address] [address] Referral ID Status Reason Start Date Expiration Date Visits Requ ested Visits Authorized Scheduling Instructions ANTICOAGULATION CLINIC COLLABORATIVE PRA CTICE AGREEMENT The following represents a collaborative practice agreement among the physicians of the Clinic and staff of the Anticoagulat ion Clinic Service ([facility]) Physicians shall: 1. Refer [...] Initiate vitamin K therapy when sergio cated. Encounter Details Date Type Department Care Team Description 01/19/2016 Anticoagulation Therapy [facility] Pulmonary embolism and infarction (H) (Primary Dx); Visit [place] Long-term (current) use of a nticoagulants [address] [place] [address] Social History Tobacco Use Types Packs/Day [...] encounter Progress Notes Qing Guy RN - 01/19/2016 11:20 AM CDT ANTICOAGULATION FOLLOW-UP CLINIC VISIT Patient Name: Charlette Brush Date: 01/19/2016 Contact Type: Face to Face SUBJECTIVE: Patient Findings Positives Missed doses (no missed doses), No Problem Findings OBJECTIVE INR PROTIME Date Value Ref Range Status 01/19/2016 1.8* 0.86 - 1.14 Final ASSESSMENT / PLAN No question data found. Anticoagulation Summary as of 01/19/2016 INR goal 2.0-3.0 Selected INR 1.8! (01/19/2016) Maintenance plan 7.5 mg (7.5 mg x 1) every day Full instructions 75: 10 mg; Otherwise 7.5 mg every day Weekly total 52.5 mg Plan last modified Qing Guy RN (01/19/2016) Next INR check 02/16/2016 Target end date Indefinite Indications 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] Anticoagulation Episode Summary INR check location [facility] Preferred lab Send INR reminders to [facility] Comments 7.5mg & 10mg tabs - devaughn dose // APPT CARD ONLY Anticoagulation Care Providers Provider Role Specialty Phone number Lucero Stevenson MD Pediatrics [phone] Qing Guy RN documented in this encounter Miscellaneous Notes Addendum Note - Qing Guy RN - 02/01/2016 5:19 PM CDT Addended by: QING GUY on: 02/01/2016 05:19 PM Modules accepted: Orders documented in this encounter Plan of Treatment Upcoming Encounters Date Type Specialty Care Team Description 11/15/2022 Virtual Visit Haylie Wakefield, [facility] [address] [place] [address] (Wo rk) 11/15/2022 Virtual Visit IM/Peds Yane Barraza MD [address] [facility] [place] [address] (Wo rk) 03/03/2023 Virtual Visit Neurology Erlinda Barber MD 420 [facility] 295 [place], [place] [address] (Wo rk) Scheduled Referrals Name Type Priority Associated Diagnoses Order S chedule INR CLINIC REFERRAL Referral Routine Pulmonary embolism an d Ordered: 01/19/2016 infarction (H) Long-term (current) use of anticoagulants INR CLINIC REFERRAL Referral Routine Pulmonary embolism an d Ordered: 02/01/2016 infarction (H) Long-term (current) use of anticoagulants documented as of this encounter Procedures Procedure Name Priority Date/Time Associated Diagnosis Comme nts INR POINT OF CARE Routine 01/19/2016 Pulmonary embolism and Results for this infarction (H) procedure are in the results section . documented in this encounter Results (ABNORMAL) INR point of care (01/19/2016) athologist Signature INR Point of 1.8 (A) 0.86 - [facility] 1.14 [facility] Specimen (Source) Anatomical Location Collection Method / Collectio n Time Received Time / Laterality Volume 01/19/2016 Lucero Stevenson MD LAB - BLOOD ORDERABLES Performing Organization Address City/State/ZIP Code Phon e Number [facility] 14[address] [place] [address] documented in this encounter Visit Diagnoses Diagnosis Pulmonary embolism and infarction (H) - Primary Long-term (current) use of anticoagulant s Encounter for long-term (current) use of anticoagulants documented in this encounter Care Teams Vocational Adviser Relationship Specialty Start Date End Date Lucero Stevenson MD PCP - General Pediatrics 10/11/11 04/22/19 Chastity Montero MD MD Dermatology 09/23/14 420 [facility] 98 [place], [place] [address] documented as of this encounter
--- OUTSIDE RECORDS SUMMARY | 2022-06-15 13:18 | XMS_ITS | Encounter Summary ---
:1945 Author Organization [facility] Address [address] [place] [address] Care Team Providers Name Role Phone Lucero Stevenson MD Primary Care Provider [phone] Chastity Montero MD Unavailable [phone] Encounter Details Date Type Department Care Team Description 05/23/2016 Anticoagulation Therapy [facility] Pulmonary embolism Visit Yarelis and infarction (H) [address] (Primary Dx) [place] [address] Social [...] encounter Progress Notes Qing Guy RN - 05/23/2016 11:12 AM CST ANTICOAGULATION FOLLOW-UP CLINIC VISIT Patient Name: Charlette Brush Date: 05/23/2016 Contact Type: Face to Face SUBJECTIVE: Patient Findings Positives No Problem Findings OBJECTIVE INR PROTIME Date Value Ref Range Status 05/23/2016 2.3 Final ASSESSMENT / PLAN INR assessment THER Recheck INR In: 4 WEEKS INR Location Clinic Anticoagulation Summary as of 05/23/2016 INR goal 2.0-3.0 Selected INR 2.3 (05/23/2016) Maintenance plan 10 mg (10 mg x 1) on Fri; 7.5 mg (7.5 mg x 1) all other days Full instructions 10 mg on Fri; 7.5 mg all other days Weekly total 55 mg No change documented Qing Guy, RN Plan last modified Prudence Austin RN (02/08/2016) Next INR check 06/20/2016 Target end date Indefinite Indications 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] Anticoagulation Episode Summary INR check location [facility] Preferred lab Send INR reminders to [facility]TICOAG CLINIC Comments 7.5mg & 10mg tabs - devaughn dose // APPT CARD ONLY Anticoagulation Care Providers Provider Role Specialty Phone number Lucero Stevenson MD Pediatrics [phone] Qing Guy RN CONDUCTOR BONDER documented in this encounter Plan of Treatment Upcoming Encounters Date Type Specialty Care Team Description 11/15/2022 Virtual Visit Pharm D Haylie Cheung, [facility] 1440 [facility] [place] [address] (Lena max) 11/15/2022 Virtual Visit IM/Yane Mathias MD [address] [facility] [place] [address] (Lena max) 03/03/2023 Virtual Visit Neurology Erlinda Barber MD 420 [facility] 295 [place] [address] (Lena max) documented as of this encounter Procedures Procedure Name Priority Date/Time Associated Diagnosis Comme nts INR POINT OF CARE Routine 05/23/2016 Pulmonary embolism and Results for this infarction (H) procedure are in the results section . documented in this encounter Results INR point of care (05/23/2016) P athologist Signature INR Point of 2.3 [facility] [place] Specimen (Source) Anatomical Location Collection Method / Collectio n Time Received Time / Laterality Volume 05/23/2016 Lucero Stevenson MD LAB - BLOOD ORDERABLES Performing Organization Address City/State/ZIP Code Phon e Number [facility]3] [place] [address] [place] [address] documented in this encounter Visit Diagnoses Diagnosis Pulmonary embolism and infarction (H) - Primary documented in this encounter Care Teams Mat Inspector Relationship Specialty Start Date End Date Lucero Stevenson MD PCP - General Pediatrics 10/11/11 04/22/19 Chastity Montero MD MD Dermatology 09/23/[address] [place] [place] [address] 98 [place] [address] documented as of this encounter
--- OUTSIDE RECORDS SUMMARY | 2022-06-15 13:19 | XMS_ITS | Encounter Summary ---
:1945 Author Organization [place] Address [address] [place] [address] Care Team Providers Name Role Phone Lucero Stevenson MD Primary Care Provider [phone] Chastity Montero MD Unavailable [phone] Reason for Visit Reason Comments Anticoagulation Encounter Details Date Type Department Care Team Description 07/13/2015 [facility] Eag an Anticoagulation Visit 1440 [facility] [place] [address] Social History Tobacco [...] encounter Progress Notes Prudence Austin RN - 07/13/2015 12:58 PM CST ANTICOAGULATION FOLLOW-UP CLINIC VISIT Patient Name: Charlette Brush Date: 07/13/2015 Contact Type: Face to Face SUBJECTIVE: Bleeding Signs/Symptoms: Slight bruising on arms. Thromboembolic Signs/Symptoms: None Medication Changes: No Dietary Changes: No Bacterial/Viral Infection: No Missed Coumadin Doses: None Other Concerns: No ASSESSMENT/PLAN: See: ANTICOAGULATION QIC flow sheet. [facility] ANTICOAGULATION CLINIC Prudence Austin RN UCTS MECHANICAL DESIGN ENGINEER documented in this encounter Plan of Treatment Upcoming Encounters Date Type Specialty Care Team Description 11/15/2022 Virtual Visit Pharm D Haylie Cheung, [facility] 1440 [facility] [place] [address] (Lena max) 11/15/2022 Virtual Visit IM/Peds Yane Barraza MD [address] [facility] [place] [address] (Lena max) 03/03/2023 Virtual Visit Neurology Erlinda Barber MD 420 [facility] 295 [place] [address] (Lena max) documented as of this encounter Procedures Procedure Name Priority Date/Time Associated Diagnosis Comme nts INR POINT OF CARE Routine 07/13/2015 rn long term care 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 documented in this encounter Results INR point of care (07/13/2015) P athologist Signature INR Point of 2.9 0.86 - [facility] 1.14 LAB Specimen (Source) Anatomical Location Collection Method / Collectio n Time Received Time / Laterality Volume 07/13/2015 Lucero Stevenson MD LAB - BLOOD ORDERABLES Performing Organization Address City/State/ZIP Code Phon e Number [facility] documented in this encounter Visit Diagnoses Diagnosis rn long term care current use of anticoagulant t herapy - Primary documented in this encounter Care Teams Supervisor Of Guidance And Testing Relationship Specialty Start Date End Date Lucero Stevenson MD PCP - General Pediatrics 10/11/11 04/22/19 Chastity Montero MD MD Dermatology 09/23/[address] [place] [address] documented as of this encounter
--- OUTSIDE RECORDS SUMMARY | 2022-06-15 13:19 | XMS_ITS | Encounter Summary ---
:1945 Author Organization [place] Address [address] [place] [address] Care Team Providers Name Role Phone Lucero Stevenson MD Primary Care Provider [phone] Chastity Montero MD Unavailable [phone] Reason for Visit Reason Comments Anticoagulation Encounter Details Date Type Department Care Team Description 05/05/2015 [facility] [facility] Eag an Anticoagulation Visit 1440 [facility] [place] [address] Social History [...] encounter Progress Notes Qing Guy RN - 05/05/2015 11:14 AM CDT ANTICOAGULATION FOLLOW-UP CLINIC VISIT Patient Name: Charlette Brush Date: 05/05/2015 Contact Type: Face to Face SUBJECTIVE: Bleeding Signs/Symptoms: None Thromboembolic Signs/Symptoms: None Medication Changes: No Dietary Changes: No Bacterial/Viral Infection: No Missed Coumadin Doses: None Other Concerns: She has gained weight (7 lbs) and her knees are hurting more. ASSESSMENT/PLAN: See: ANTICOAGULATION QIC flow sheet. INR Today: 3.5 New Warfarin Dose: 10mg M, 7.5mg TWTFSS = 55 Next INR in: 2 weeks Written instructions given to patient. ANTICOAGULATION CLINIC Qing Guy RN documented in this encounter Plan of Treatment Upcoming Encounters Date Type Specialty Care Team Description 11/15/2022 Virtual Visit Pharm Haylie Gonzalez, [facility] 1440 [facility] [address] [place] [phone] (Lena max) 11/15/2022 Virtual Visit IM/Peds Yane Barraza MD 3305 [facility] [place] [phone] (Lena max) 03/03/2023 Virtual Visit Neurology Erlinda Barber MD 420 [facility] 295 [place], [place] [phone] (Lena max) documented as of this encounter Procedures Procedure Name Priority Date/Time Associated Diagnosis Comme nts INR POINT OF CARE Routine 05/05/2015 long term care phlebotomist 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 documented in this encounter Results (ABNORMAL) INR point of care (05/05/2015) P athologist Signature INR Point of 3.5 (A) 0.86 - [facility] Care 1.14 LAB Specimen (Source) Anatomical Location Collection Method / Collectio n Time Received Time / Laterality Volume 05/05/2015 Lucero Stevenson MD LAB - BLOOD ORDERABLES Performing Organization Address City/State/ZIP Code Phon e Number [facility] documented in this encounter Visit Diagnoses Diagnosis long term care phlebotomist current use of anticoagulant t herapy - Primary documented in this encounter Care Teams Hand Candy Dipper Relationship Specialty Start Date End Date Lucero Stevenson MD PCP - General Pediatrics 10/11/11 04/22/19 Chastity Montero MD MD Dermatology 09/23/[address] [place] [id number] documented as of this encounter
--- OUTSIDE RECORDS SUMMARY | 2022-06-15 13:19 | XMS_ITS | Encounter Summary ---
:1945 Author Organization [facility] Address [address] [place] [address] Care Team Providers Name Role Phone Lucero Stevenson MD Primary Care Provider [phone] Chastity Montero MD Unavailable [phone] Reason for Visit Reason Comments Anticoagulation Encounter Details Date Type Department Care Team Description 02/10/2015 [facility] Eag an Anticoagulation Visit 1440 [facility] [place] [address] Social History Tobacco Use [...] encounter Progress Notes Qing Guy RN - 02/10/2015 10:07 AM CDT ANTICOAGULATION FOLLOW-UP CLINIC VISIT Patient Name: Charlette Brush Date: 02/10/2015 Contact Type: Face to Face SUBJECTIVE: Bleeding Signs/Symptoms: None Thromboembolic Signs/Symptoms: None Medication Changes: No Dietary Changes: No Bacterial/Viral Infection: No Missed Coumadin Doses: None Other Concerns: No ASSESSMENT/PLAN: See: ANTICOAGULATION QIC flow sheet. INR Today: 3.1 New Warfarin Dose: same, 7.5mg MF, 10mg TWTSS = 65 Next INR in: 4 weeks Written instructions given to patient. EA ANTICOAGULATION CLINIC Qing Guy RN documented in this encounter Plan of Treatment Upcoming Encounters Date Type Specialty Care Team Description 11/15/2022 Virtual Visit Pharm Haylie Gonzalez, [facility] [address] [facility] [address] [place], [place] [phone] (Wo rk) 11/15/2022 Virtual Visit IM/Peds Yane Barraza MD [address] [facility] [address] [place] [phone] (Wo rk) 03/03/2023 Virtual Visit Neurology Erlinda Barber MD 420 [facility] 295 [place], [place] [phone] (Wo rk) documented as of this encounter Procedures Procedure Name Priority Date/Time Associated Diagnosis Comme nts INR POINT OF CARE Routine 02/10/2015 adjunct faculty for medical terminology 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 documented in this encounter Results INR point of care (02/10/2015) P athologist Signature INR Point of 3.1 0.86 - [facility] Care 1.14 LAB Specimen (Source) Anatomical Location Collection Method / Collectio n Time Received Time / Laterality Volume 02/10/2015 Lucero Stevenson MD LAB - BLOOD ORDERABLES Performing Organization Address City/State/ZIP Code Phon e Number [facility] documented in this encounter Visit Diagnoses Diagnosis half-way current use of anticoagulant t herapy - Primary documented in this encounter Care Teams Time Signal Wirer Relationship Specialty Start Date End Date Lucero Stevenson MD PCP - General Pediatrics 10/11/11 04/22/19 Chastity Montero MD MD Dermatology 09/23/[address] [place] [id number] documented as of this encounter
--- OUTSIDE RECORDS SUMMARY | 2022-06-15 13:19 | XMS_ITS | Encounter Summary ---
:1945 Author Organization [facility] Address [address] [place] [address] Care Team Providers Name Role Phone Lucero Stevenson MD Primary Care Provider [phone] Chastity Montero MD Unavailable [phone] Reason for Visit Reason Comments Anticoagulation Encounter Details Date Type Department Care Team Description 08/03/2015 Allied [facility] Eag an Anticoagulation Visit 1440 [facility] [place] [address] Social History [...] encounter Progress Notes Qing Guy RN - 08/03/2015 11:55 AM CST ANTICOAGULATION FOLLOW-UP CLINIC VISIT Patient Name: Charlette Brush Date: 08/03/2015 Contact Type: Face to Face SUBJECTIVE: Bleeding Signs/Symptoms: None Thromboembolic Signs/Symptoms: None Medication Changes: No Dietary Changes: No Bacterial/Viral Infection: No Missed Coumadin Doses: None Other Concerns: No ASSESSMENT/PLAN: See: ANTICOAGULATION QIC flow sheet. INR Today: 2.1 New Warfarin Dose: same, 5mg M, 7.5mg TWTFSS = 50 Next INR in: 4 weeks Written instructions given to patient. EA ANTICOAGULATION CLINIC Qing Guy RN [facility] documented in this encounter Plan of Treatment Upcoming Encounters Date Type Specialty Care Team Description 11/15/2022 Virtual Visit Pharm Haylie Gonzalez, [facility] 14[address] [facility] [address] [place], [place] [phone] (Wo rk) 11/15/2022 Virtual Visit [place] [address] [place] [address] [place] [phone] (Wo rk) 03/03/2023 Virtual Visit Neurology Erlinda Barber MD 420 [facility] 295 [place], [place] [phone] (Wo rk) documented as of this encounter Procedures Procedure Name Priority Date/Time Associated Diagnosis Comme nts INR POINT OF CARE Routine 08/03/2015 [facility]P 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 documented in this encounter Results INR point of care (08/03/2015) P athologist Signature INR Point of 2.1 0.86 - [facility] Care 1.14 LAB Specimen (Source) Anatomical Location Collection Method / Collectio n Time Received Time / Laterality Volume 08/03/2015 Lucero Stevenson MD LAB - BLOOD ORDERABLES Performing Organization Address City/State/ZIP Code Phon e Number [facility] documented in this encounter Visit Diagnoses Diagnosis USP current use of anticoagulant t herapy - Primary documented in this encounter Care Teams Lead Software Developer Relationship Specialty Start Date End Date Lucero Stevenson MD PCP - General Pediatrics 10/11/11 04/22/19 Chastity Montero MD MD Dermatology 09/23/[address] [place] [phone] documented as of this encounter
--- OUTSIDE RECORDS SUMMARY | 2022-06-15 13:19 | XMS_ITS | Encounter Summary ---
:1945 Author Organization [place] Address [address] [place] [address] Care Team Providers Name Role Phone Lucero Stevenson MD Primary Care Provider [phone] Chastity Montero MD Unavailable [phone] Reason for Visit Reason Onset Date Comments Refill Request 08/18/2015 Omeprazole Encounter Details Date Type Department Care Team Description 08/18/2015 Refill [facility] Lucero Falk Refill Request 1440 [facility] MD Annetta (Omeprazole) [place] [address] [facility] [phone] [address] [place], [place] [address] (Wo rk) Social History [...] this encounter Miscellaneous Notes Telephone Encounter - Temi Chu RN - 08/18/2015 2:04 PM CST omeprazole (PRILOSEC) 40 MG capsule Last Written Prescription Date: 10/06/2014 Last Fill Quantity: 90, # refills: 2 Last Office Visit with [facility] primary care provider: 12/30/2014 Next 5 appointments (look out 90 days) Aug 31, 2015 11:15 AM Nurse Only with ANTICOAGULATION CLINIC [facility] ([facility] [address] [place] [address] Prescription approved per [facility] Refill Protocol. Temi Chu RN THERAPIST documented in this encounter Plan of Treatment Upcoming Encounters Date Type Specialty Care Team Description 11/15/2022 Virtual Visit Pharm Haylie Gonzalez, [address] [place] [address] (Wo rk) 11/15/2022 Virtual Visit IM/PedYane Muir MD [address] [place] [address] (Wo rk) 03/03/2023 Virtual Visit Neurology Erlinda Barber MD 420 [facility] 295 [place] [address] (Wo rk) documented as of this encounter Visit Diagnoses Diagnosis Gastritis - Primary Unspecified gastritis and gastroduodenit is without mention of hemorrhage documented in this encounter Care Teams Division Order Analyst Relationship Specialty Start Date End Date Lucero Stevenson MD PCP - General Pediatrics 10/11/11 04/22/19 Chastity Montero MD MD Dermatology 09/23/14 420 [facility] 98 [place] [address] documented as of this encounter
--- OUTSIDE RECORDS SUMMARY | 2022-06-15 13:19 | XMS_ITS | Encounter Summary ---
:1945 Author Organization [facility] Address [address] [place] [address] Care Team Providers Name Role Phone Lucero Stevenson MD Primary Care Provider [phone] Chastity Montero MD Unavailable Encounter Details Date Type Department Care Team Description 02/10/2015 Therapy Visit [place] for Rashard Guerra, Hip pain , right Athletic Medicine - PT (Primary Dx) [facility] [address] [place] [address] [address] [employer] Information [phone] [place] [phone] (Work) [phone] Social History Tobacco Use Types Packs/Day Years [...] documented as of this encounter Progress Notes Rashard Guerra, PT - 04/06/2015 9:23 AM CDT Subjective: HPI Objective: System Physical Exam General ROS Assessment/Plan: DISCHARGE REPORT SUBJECTIVE Subjective: Pt is struggling to get HEP done, knees are bothering her along with R hip. Pt has been very fatigued by the hot weather and humidity this past few weeks. Overall pt feels that she has improved because her R hip flexor/groin pain has decreased significantly. Changes in function: Yes, see goal flow sheet for change in function Adverse reactions: None; , Patient has failed to return to therapy so current objective findings are unknown. OBJECTIVE Gait: Deviations: Trunk lean R and trunk lean L, Leslie decr and stride length decr HIP AROM: : WFL Hip Strength: : 4+/5 glut med and max ASSESSMENT/PLAN Updated problem list and treatment plan: Diagnosis 1: R hip pain STG/LTGs have been met or progress has been made towards goals: Yes (See Goal flow sheet completed today.) Assessment of Progress: The patient has not returned to therapy. Current status is unknown. Self Management Plans: Patient has been instructed in a home treatment program. Patient has been instructed in self management of symptoms. I have re-evaluated this patient and find that the nature, scope, duration and intensity of the therapy is appropriate for the medical condition of the patient. Charlette continues to require the following intervention to meet STG and LTG's: PT The patient failed to complete scheduled/ordered appointments so current information is unknown. We will discharge this patient from PT. Please refer to the daily flowsheet for treatment today, total treatment time and time spent performing 1:1 timed codes. documented in this encounter Plan of Treatment Upcoming Encounters Date Type Specialty Care Team Description 11/15/2022 Virtual Visit Pharm Haylie Gonzalez, [facility] 1440 [facility] [place] [address] (Wo rk) 11/15/2022 Virtual Visit IM/Peds Yane Barraza MD 3503 [facility] [place] [address] (Wo rk) 03/03/2023 Virtual Visit Neurology Erlinda Barber MD 420 [facility] 295 [place], [place] [address] (Wo rk) documented as of this encounter Procedures Procedure Name Priority Date/Time Associated Diagnosis Comme nts [facility] NEUROMUSCULAR Routine 02/10/2015 11:52 AM Hip pain, right RE-EDUCATION CDT [facility] THERAPEUTIC EXERCISES Routine 02/10/2015 11:52 AM Hip pain , right CDT documented in this encounter Visit Diagnoses Diagnosis Hip pain, right - Primary Pain in joint, pelvic region and thigh documented in this encounter Care Teams Chain Hoist Operator Relationship Specialty Start Date End Date Lucero Stevenson MD PCP - General Pediatrics 10/11/11 04/22/19 Chastity Montero MD MD Dermatology 09/23/14 420 [facility] 98 [place] [address] documented as of this encounter
--- OUTSIDE RECORDS SUMMARY | 2022-06-15 13:19 | XMS_ITS | Encounter Summary ---
:1945 Author Organization [facility] Address [address] [place] [address] Care Team Providers Name Role Phone Lucero Stevenson MD Primary Care Provider [phone] Chastity Montero MD Unavailable [phone] Reason for Visit Reason Comments Anticoagulation Encounter Details Date Type Department Care Team Description 04/07/2015 Allied Health/[facility] Eag an Anticoagulation Visit 1440 [facility] EV[place] [...] encounter Progress Notes Qing Guy RN - 04/07/2015 10:32 AM CDT ANTICOAGULATION FOLLOW-UP CLINIC VISIT Patient Name: Charlette Brush Date: 04/07/2015 Contact Type: Face to Face SUBJECTIVE: Bleeding Signs/Symptoms: None Thromboembolic Signs/Symptoms: None Medication Changes: No Dietary Changes: No Bacterial/Viral Infection: No Missed Coumadin Doses: None Other Concerns: No ASSESSMENT/PLAN: See: ANTICOAGULATION QIC flow sheet. INR Today: 3.3 New Warfarin Dose: 7.5mg today, then 7.5mg MWF, 10mg TTSS = 62.5 Next INR in: 2 weeks Written instructions given to patient. ANTICOAGULATION CLINIC Qing Guy RN documented in this encounter Plan of Treatment Upcoming Encounters Date Type Specialty Care Team Description 11/15/2022 Virtual Visit Pharm Haylie Gonzalez, [facility] [address] [facility] [address] [place] [phone] (Wo winter) 11/15/2022 Virtual Visit [place] [address] [place] [address] [place] [phone] (Wo rk) 03/03/2023 Virtual Visit Neurology Erlinda Barber MD 420 [facility] 295 [place] [address] (Wo winter) documented as of this encounter Procedures Procedure Name Priority Date/Time Associated Diagnosis Comme nts INR POINT OF CARE Routine 04/07/2015 terminal press operator 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 documented in this encounter Results (ABNORMAL) INR point of care (04/07/2015) P athologist Signature INR Point of 3.3 (A) 0.86 - [facility] Care 1.14 LAB Specimen (Source) Anatomical Location Collection Method / Collectio n Time Received Time / Laterality Volume 04/07/2015 Lucero Stevenson MD LAB - BLOOD ORDERABLES Performing Organization Address City/State/ZIP Code Phon e Number [facility] documented in this encounter Visit Diagnoses Diagnosis terminal press operator current use of anticoagulant t herapy - Primary documented in this encounter Care Teams Director Of Sales Support Relationship Specialty Start Date End Date Lucero Stevenson MD PCP - General Pediatrics 10/11/11 04/22/19 Chastity Montero MD MD Dermatology 09/23/[address] [place] [address] documented as of this encounter
--- OUTSIDE RECORDS SUMMARY | 2022-06-15 13:19 | XMS_ITS | Encounter Summary ---
:1945 Author Organization [place] Address [address] [place] [address] Care Team Providers Name Role Phone Lucero Stevenson MD Primary Care Provider [phone] Chastity Montero MD Unavailable [phone] Encounter Details Date Type Department Care Team Description 01/20/2015 Therapy Visit [place] for Rashard Guerra, Hip pain , right Athletic Medicine - PT (Primary Dx) [facility] [address] [place] [address] 7[address] [employer] [phone] [place] [phone] (Work) [phone] Social History Tobacco Use Types Packs/Day Years [...] Haylie Gonzalez, [facility] 1440 [facility] [place] [address] (Wo rk) 11/15/2022 Virtual Visit IM/Peds Yane Barraza MD [address] [facility] [place] [address] (Wo rk) 03/03/2023 Virtual Visit Neurology Erlinda Barber MD 420 [facility] 295 [place] [address] (Wo rk) documented as of this encounter Procedures Procedure Name Priority Date/Time Associated Diagnosis Comme nts [facility] NEUROMUSCULAR Routine 01/20/2015 10:35 AM Hip pain, right RE-EDUCATION CDT Z THERAPEUTIC EXERCISES Routine 01/20/2015 10:35 AM Hip pain , right CDT documented in this encounter Visit Diagnoses Diagnosis Hip pain, right - Primary Pain in joint, pelvic region and thigh documented in this encounter Care Teams Client Technologies Specialist Relationship Specialty Start Date End Date Lucero Stevenson MD PCP - General Pediatrics 10/11/11 04/22/19 Chastity Montero MD MD Dermatology 09/23/14 420 [facility] 98 [place], [place] [address] documented as of this encounter
--- OUTSIDE RECORDS SUMMARY | 2022-06-15 13:19 | XMS_ITS | Encounter Summary ---
:1945 Author Organization [facility] Address [address] [place] [address] Care Team Providers Name Role Phone Lucero Stevenson MD Primary Care Provider [phone] Chastity Montero MD Unavailable [phone] Reason for Visit Reason Onset Date Comments Pt. Information/instruction 09/17/2015 Encounter Details Date Type Department Care Team Description 09/17/2015 Telephone [facility] Dermatology Chastity Montero Pt. [address] [facility] MD Martha Information/instructio 3rd Floor 420 [place], [place] [address] [place], [place] [phone] (Wo rk) Social History Tobacco Use Types [...] this encounter Miscellaneous Notes Telephone Encounter - HebertElissa fabian CMA - 09/17/2015 12:00 PM CST ----- Message from Chastity Montero MD sent at 09/17/2015 7:59 AM MAINTENANCE ANALYST ----- Please let the patient know the doxycycline may interact with her warfarin and she should let her warfarin clinic know we are starting that antibiotic. I left a message for Charlette letting her know what stated above. I asked her to call [phone] with any questions or concerns. I will also send a [employer] message. ABBI Whartno TENANCE ANALYST documented in this encounter Plan of Treatment Upcoming Encounters Date Type Specialty Care Team Description 11/15/2022 Virtual Visit Pharm D Haylie Cheung, [facility] [address] [facility] [place] [address] (Wo rk) 11/15/2022 Virtual Visit IM/Yane Mathias MD [address] [facility] [address] [place] [phone] (Wo rk) 03/03/2023 Virtual Visit Neurology Erlinda Barber MD 420 [facility] 295 [place], [place] [phone] (Wo rk) documented as of this encounter Visit Diagnoses Not on filedocumented in this encounter Care Teams Staining Machine Operator Relationship Specialty Start Date End Date Lucero Stevenson MD PCP - General Pediatrics 10/11/11 04/22/19 Chastity Montero MD MD Dermatology 09/23/14 420 [facility] 98 [place], [place] [phone] documented as of this encounter
--- OUTSIDE RECORDS SUMMARY | 2022-06-15 13:19 | XMS_ITS | Encounter Summary ---
:1945 Author Organization [place] Address [address] [place] [address] Care Team Providers Name Role Phone Lucero Stevenson MD Primary Care Provider [phone] Chastity Montero MD Unavailable [phone] Reason for Visit Reason Comments Anticoagulation Encounter Details Date Type Department Care Team Description 06/09/2015 Allied Health/[facility]urse [facility] Eag an Anticoagulation Visit [address] [facility] [place] [address] Social History Tobacco [...] encounter Progress Notes Qing Guy RN - 06/09/2015 1:49 PM CST ANTICOAGULATION FOLLOW-UP CLINIC VISIT Patient Name: Charlette Brush Date: 06/09/2015 Contact Type: Face to Face SUBJECTIVE: Bleeding Signs/Symptoms: None Thromboembolic Signs/Symptoms: None Medication Changes: No Dietary Changes: No Bacterial/Viral Infection: No Missed Coumadin Doses: None Other Concerns: No ASSESSMENT/PLAN: See: ANTICOAGULATION QIC flow sheet. INR Today: 2.9 New Warfarin Dose: same, 10mg M, 7.5mg TWTFSS = 55 Next INR in: 3 weeks Written instructions given to patient. [facility] Qing Guy RN REVIEWER documented in this encounter Plan of Treatment Upcoming Encounters Date Type Specialty Care Team Description 11/15/2022 Virtual Visit Pharm Haylie Gonzalez, [facility] [address] [facility] [address] [address] [place], [place] [phone] (Wo rk) 11/15/2022 Virtual Visit IM/Peds Yane Barraza MD [address] [facility] [address] [place] [phone] (Wo rk) 03/03/2023 Virtual Visit Neurology Erlinda Barber MD [address] [facility] 295 [place], [place] [phone] (Wo rk) documented as of this encounter Procedures Procedure Name Priority Date/Time Associated Diagnosis Comme nts INR POINT OF CARE Routine 06/09/2015 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 manager 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 documented in this encounter Results INR point of care (06/09/2015) P athologist Signature INR Point of 2.9 0.86 - [facility] 1.14 LAB Specimen (Source) Anatomical Location Collection Method / Collectio n Time Received Time / Laterality Volume 06/09/2015 Lucero Stevenson MD LAB - BLOOD ORDERABLES Performing Organization Address City/State/ZIP Code Phon e Number [facility] documented in this encounter Visit Diagnoses Diagnosis prison current use of anticoagulant t herapy - Primary documented in this encounter Care Teams Private Branch Exchange Service Advisor Relationship Specialty Start Date End Date Lucero Stevenson MD PCP - General Pediatrics 10/11/11 04/22/19 Chastity Montero MD MD Dermatology 09/23/[address] [place] [address] [id number] documented as of this encounter
--- OUTSIDE RECORDS SUMMARY | 2022-06-15 13:19 | XMS_ITS | Encounter Summary ---
:1945 Author Organization [facility] Address [address] [place] [address] Care Team Providers Name Role Phone Lucero Stevenson MD Primary Care Provider [phone] Chastity Montero MD Unavailable [phone] Reason for Referral Consultation - Closed Specialty Diagnoses / Procedures Referred By Contact Refer red To Contact Diagnoses CEFERINO (obstructive sleep apnea) Obesity, morbid, BMI 50 or higher (H) Jem Watts MD [address] [address] Referral ID Status Reason Start Date Expiration Date Visits Requ ested Visits Authorized [id number] Closed 01/21/2015 01/21/2016 1 1 Reason for Visit Reason Comments RECHECK Annual cpap check Encounter Details Date Type Department Care Team Description 01/21/2015 Office Visit [facility] Jem Watts MD Obesity, morbid, BMI 50 or higher (H) (P rimary Dx); [facility] [address] CEFERINO (obstructive sleep apnea ) [address] [place] [address] [place] [address] [place] [address] (Work) [phone] Social History Tobacco Use Types Packs/Day Years [...] Sign Reading Time Taken Comments Blood Pressure 127/49 01/21/2015 11:00 AM CDT L arm Pulse 42 01/21/2015 11:00 AM CDT Temperature 36.4 ??C (97.5 ??F) 01/21/2015 11:00 AM CDT Respiratory Rate - - Oxygen Saturation 96% 01/21/2015 11:00 AM CDT Inhaled Oxygen Concentration - - Weight 182.3 kg (402 lb) 01/21/2015 11:00 AM CDT Height 167.6 cm (5' 5.98) 01/21/2015 11:00 AM CDT Body Mass Index 64.92 01/21/2015 11:00 AM CDT documented in this encounter Patient Instructions Patient InstructionsJem Watts MD - 01/21/2015 11:40 AM CDT Your BMI is Body mass index is 64.92 kg/(m^2). Body mass index (BMI) is one way [...] is considered obese. More than two-thirds of [place] adults are considered overweight or obese. Being [...] center, or victor[facility] club. Weight management plan: Diet regimen was discussed and plan is Weight Watchers, TOPS, or similar program. ,weight managment clinic referral documented in this encounter Progress Notes Jem Watts MD - 01/21/2015 11:57 AM CDT CHIEF COMPLAINT: Follow-up for severe obstructive sleep apnea. PRESENTING HISTORY: Ms. Charlette Brush was diagnosed with obstructive sleep apnea initially in 2003. She has been on CPAP therapy since then. A repeat sleep study was done on 12/08/2011, and she was noted to have an apnea-hypopnea index of 45.6 per hour, and RDI of 74.8 per hour. The lowest oxygen saturation was 85%. Therewas no evidence of hypoventilation on the sleep study. She is on CPAP at a pressure setting of 11 cmof water, and returns for a routine follow-up visit. The patient continues to use CPAP regularly with resolution of her symptoms. She continues to reportsustained improvement in her daytime alertness, and also resolution of snoring and other symptoms ofsleep apnea. A download from her CPAP device shows 100% compliance during the last 30 days, with average daily usage of 7 hours 52 mins. Residual AHI is normal at 0.2 per hour. Her weight has decreased from 191 kg to 182 kg from last year. Her awake O2 saturation remains normal at 96%. IMPRESSION: Severe obstructive sleep apnea, adequately treated on CPAP therapy. Patient was counseled about download findings and advised to continue regular CPAP therapy. Weight management counseling was provided and referral to medical weight management clinic was provided. TREATMENT PLAN: 1. Continue CPAP therapy at 11 cm of water pressure. 2. Routine follow-up in a year's time is advised. TIME: A total of 15 minutes were spent with this patient, with more than 50% counseling. JEM WATTS MD documented in this encounter Plan of Treatment Upcoming Encounters Date Type Specialty Care Team Description 11/15/2022 Virtual Visit Pharm Haylie Gonzalez, [facility] [address] [facility] [place] [address] (Lena max) 11/15/2022 Virtual Visit [place] [address] [place] [address] [place] [phone] (Lena max) 03/03/2023 Virtual Visit Neurology Erlinda Barber MD [address] [facility] [address] [place] [address] (Lena max) Scheduled Referrals Name Type Priority Associated Diagnoses Order S chedule BARIATRIC ADULT Referral Routine CEFERINO (obstructive sleep Or dered: 01/21/2015 REFERRAL apnea) Obesity, morbid, BMI 50 or higher (H) documented as of this encounter Visit Diagnoses Diagnosis Obesity, morbid, BMI 50 or higher (H) - Primary CEFERINO (obstructive sleep apnea) Obstructive sleep apnea (adult) (pediatr ic) documented in this encounter Care Teams Heater Helper Forge Relationship Specialty Start Date End Date Lucero Stevenson MD PCP - General Pediatrics 10/11/11 04/22/19 Chastity Montero MD MD Dermatology 09/23/[address] [place] [address] documented as of this encounter
--- OUTSIDE RECORDS SUMMARY | 2022-06-15 13:19 | XMS_ITS | Encounter Summary ---
:1945 Author Organization [place] Address [address] [place] [address] Care Team Providers Name Role Phone Lucero Stevenson MD Primary Care Provider [phone] Chastity Montero MD Unavailable [phone] Reason for Visit Reason Comments Allied Health Visit Flu Shot Encounter Details Date Type Department Care Team Description 04/21/2015 Allied Health/[facility]urse [facility] Eag an Allied Health Visit; Visit [address] [facility] Flu Shot [place] [address] Social History Tobacco Use [...] documented as of this encounter Progress Notes Tanesha Anderson, EMERGENCY MEDICAL TECH - 04/21/2015 11:40 AM CDT Injectable Influenza Immunization Documentation 1. [...] the person to be vaccinated ever had Guillain-[place] syndrome? No Form completed by Tanesha Anderson MA// April 21, 2015 11:41 AM documented in this encounter Plan of Treatment Upcoming Encounters Date Type Specialty Care Team Description 11/15/2022 Virtual Visit Pharm Haylie Gonzalez, [facility] [address] [facility] [address] [place] [phone] (Wo rk) 11/15/2022 Virtual Visit IM/Peds Yane Barraza MD [address] [facility] [address] [place] [phone] (Wo rk) 03/03/2023 Virtual Visit Neurology Erlinda Barber MD [address] [facility] 295 [place], [place] [phone] (Wo rk) documented as of this encounter Visit Diagnoses Diagnosis Need for prophylactic vaccination and in oculation against influenza - Primary documented in this encounter Care Teams Construction Job Cost Estimator Relationship Specialty Start Date End Date Lucero Stevenson MD PCP - General Pediatrics 10/11/11 04/22/19 Chastity Montero MD MD Dermatology 09/23/14 [address] [facility] 98 [place] [address] documented as of this encounter
--- OUTSIDE RECORDS SUMMARY | 2022-06-15 13:19 | XMS_ITS | Encounter Summary ---
:1945 Author Organization [place] Address [address] [place] [address] Care Team Providers Name Role Phone Lucero Stevenson MD Primary Care Provider [phone] Chastity Montero MD Unavailable [phone] Reason for Visit Reason Onset Date Comments Forms 08/31/2015 from [employer] Encounter Details Date Type Department Care Team Description 08/31/2015 Telephone [facility] Lucero Willard Forms (from [address] MD [employer] [employer]) [place] [address] [facility] [phone] [address] [place], [place] [address] (Wo rk) Social History [...] this encounter Miscellaneous Notes Telephone Encounter - Bee Hensley CMA - 09/04/2015 3:52 PM CST Form faxed to [employer] [facility] at [phone], mail pt original for her records, and sent copy to abstracting.Bee Hensley CMA RONMENTAL TEST TECHNICIAN Telephone Encounter - Lucero Stevenson MD - 09/04/2015 2:16 PM ENVIRONMENTAL TEST TECHNICIAN Forms completed. Lucero Stevenson MD RONMENTAL TEST TECHNICIAN Telephone Encounter - Qing uGy RN - 08/31/2015 11:45 AM CST Patient brought in form from [employer]. [facility] [employer] [employer] Form Needs to be filled out, signed, and faxed to [employer]. Form in Dr. Stevenson's in-basket. Qing Guy, RN RONMENTAL TEST TECHNICIAN documented in this encounter Plan of Treatment Upcoming Encounters Date Type Specialty Care Team Description 11/15/2022 Virtual Visit Pharm D Haylie Cheung, [facility] [address] [facility] [place] [address] (Wo winter) 11/15/2022 Virtual Visit IM/Peds Yane Barraza MD [address] [facility] [place] [address] (Wo winter) 03/03/2023 Virtual Visit Neurology Erlinda Barber MD [address] [facility] 295 [place] [address] (Wo winter) documented as of this encounter Visit Diagnoses Not on filedocumented in this encounter Care Teams Program Management Professional Relationship Specialty Start Date End Date Lucero Stevenson MD PCP - General Pediatrics 10/11/11 04/22/19 Chastity Montero MD MD Dermatology 09/23/[address] [place] [address] documented as of this encounter
--- OUTSIDE RECORDS SUMMARY | 2022-06-15 13:19 | XMS_ITS | Encounter Summary ---
:1945 Author Organization [place] Address [address] [place] [address] Care Team Providers Name Role Phone Lucero Stevenson MD Primary Care Provider [phone] Chastity Montero MD Unavailable [phone] Encounter Details Date Type Department Care Team Description 09/17/2015 Orders Only Health Dermatology Chastity Montero [facility] infection [address] [facility] [address] MD [place] (Primary Dx) 3rd Floor [address] [place], [place] [address] [place], [place] [phone] (Wo rk) Social History Tobacco Use Types [...] Haylie Gonzalez, [facility] [address] [facility] [place] [address] (Wo rk) 11/15/2022 Virtual Visit IM/Peds Yane Barraza MD [address] [facility] [place] [address] (Wo rk) 03/03/2023 Virtual Visit Neurology Erlinda Barber MD [address] [facility] 295 [place] [address] (Wo rk) documented as of this encounter Visit Diagnoses Diagnosis Staph infection - Primary Unspecified staphylococcus infection in conditions classified elsewhere and of unspecified site documented in this encounter Care Teams Hot Saw Operator Relationship Specialty Start Date End Date Lucero Stevenson MD PCP - General Pediatrics 10/11/11 04/22/19 Chastity Montero MD MD Dermatology 09/23/14 [address] [facility] 98 [place], [place] [phone] documented as of this encounter
--- OUTSIDE RECORDS SUMMARY | 2022-06-15 13:19 | XMS_ITS | Encounter Summary ---
:1945 Author Organization [facility] Address [address] [place] [address] Care Team Providers Name Role Phone Lucero Stevenson MD Primary Care Provider [phone] Chastity Montero MD Unavailable [phone] Encounter Details Date Type Department Care Team Description 01/29/2015 Therapy Visit [facility] for Rashard Guerra, Hip pain , right Athletic Medicine - PT (Primary Dx) [facility] [address] [place] [address] [address] [employer] [phone] [place] [address] (Work) [phone] Social History Tobacco Use Types Packs/Day Years [...] [facility] [address] [facility] [place] [address] (Wo rk) 11/15/2022 Virtual Visit IM/Peds Yane Barraza MD [address] [facility] [place] [address] (Wo rk) 03/03/2023 Virtual Visit Neurology Erlinda Barber MD [address] [facility] 295 [place] [address] (Wo rk) documented as of this encounter Procedures Procedure Name Priority Date/Time Associated Diagnosis Comme nts [facility] NEUROMUSCULAR Routine 01/29/2015 10:22 AM Hip pain, right RE-EDUCATION CDT Z THERAPEUTIC EXERCISES Routine 01/29/2015 10:22 AM Hip pain , right CDT documented in this encounter Visit Diagnoses Diagnosis Hip pain, right - Primary Pain in joint, pelvic region and thigh documented in this encounter Care Teams Directory Assistance Operator Relationship Specialty Start Date End Date Lucero Stevenson MD PCP - General Pediatrics 10/11/11 04/22/19 Chastity Montero MD MD Dermatology 09/23/14 [address] [facility] 98 [place], [place] [address] documented as of this encounter
--- OUTSIDE RECORDS SUMMARY | 2022-06-15 13:19 | XMS_ITS | Encounter Summary ---
:1945 Author Organization [place] Address [address] [place] [address] Care Team Providers Name Role Phone Lucero Stevenson MD Primary Care Provider [phone] Chastity Montero MD Unavailable [phone] Encounter Details Date Type Department Care Team Description 09/28/2015 Anticoagulation Therapy [facility] Pulmonary embolism and infarction (H) (Primary Dx); Visit Yarelis Long-term (current) use of a nticoagulants [facility] Adter[facility] [place] [address] Social History Tobacco Use [...] this encounter Progress Notes Susie Murphy - 09/28/2015 11:18 AM CDT ANTICOAGULATION FOLLOW-UP CLINIC VISIT Patient Name: Charlette Brush Date: 09/28/2015 Contact Type: Face to Face SUBJECTIVE: Patient Findings Comments Medication Changes - Last dose of doxycycline is 3-16-16. Staph inf in back wound Micromedex: Concurrent use of WARFARIN and DOXYCYCLINE may result in an increased risk of bleeding. OBJECTIVE INR PROTIME Date Value Ref Range Status 09/28/2015 2.7 Final ASSESSMENT / PLAN INR assessment THER Recheck INR In: 4 WEEKS INR Location Clinic Anticoagulation Summary as of 09/28/2015 INR goal 2.0-3.0 Selected INR 2.7 (09/28/2015) Maintenance plan 5 mg (10 mg x 0.5) on Mon; 7.5 mg (7.5 mg x 1) all other days Full instructions 5 mg on Mon; 7.5 mg all other days Weekly total 50 mg No change documented Susie Murphy Plan last modified Qing Guy RN (08/31/2015) Next INR check 10/26/2015 Target end date Indefinite Indications Long-term (current) use of anticoagulants [Z79.01] [Z79.01] Pulmonary embolism and infarction [I26.99] Anticoagulation Episode Summary INR check location [facility] Preferred lab Send INR reminders to [facility] Comments 5mg tabs // devaughn dose Anticoagulation Care Providers Provider Role Specialty Phone number Lucero Stevenson MD Pediatrics [phone] Dosage adjustment made based on physician directed care plan. Susie Murphy RN documented in this encounter Plan of Treatment Upcoming Encounters Date Type Specialty Care Team Description 11/15/2022 Virtual Visit Pharm Haylie Gonzalez, [facility] [address] [facility] [place] [address] (Lena max) 11/15/2022 Virtual Visit IM/Yane Mathias MD [address] [facility] [place] [address] (Lena max) 03/03/2023 Virtual Visit Neurology Erlinda Barber MD 420 [facility] 295 [place] [address] (Wo rk) documented as of this encounter Procedures Procedure Name Priority Date/Time Associated Diagnosis Comme nts INR POINT OF CARE Routine 09/28/2015 Pulmonary embolism and Results for this infarction (H) procedure are in the Long-term (current) use of r esults section. anticoagulants documented in this encounter Results INR point of care (09/28/2015) P athologist Signature INR Point of 2.7 [facility] Care Specimen (Source) Anatomical Location Collection Method / Collectio n Time Received Time / Laterality Volume 09/28/2015 Lucero Stevenson MD LAB - BLOOD ORDERABLES Performing Organization Address City/State/ZIP Code Phon e Number [facility] [address] [facility] [place] [address] documented in this encounter Visit Diagnoses Diagnosis Pulmonary embolism and infarction (H) - Primary Long-term (current) use of anticoagulant s Encounter for long-term (current) use of anticoagulants documented in this encounter Care Teams Mower Sharpener Relationship Specialty Start Date End Date Lucero Stevenson MD PCP - General Pediatrics 10/11/11 04/22/19 Chastity Montero MD MD Dermatology 09/23/14 [address] [facility] 98 [place], [place] [address] documented as of this encounter
--- OUTSIDE RECORDS SUMMARY | 2022-06-15 13:19 | XMS_ITS | Encounter Summary ---
:1945 Author Organization [place] Address [address] [place] [address] Care Team Providers Name Role Phone Lucero Stevenson MD Primary Care Provider [phone] Chastity Montero MD Unavailable [phone] Encounter Details Date Type Department Care Team Description 08/31/[address] [facility] Pulmonary embolism and infarction (H) (Primary Dx); Visit Yarelis Long-term (current) use of a nticoagulants [facility] [place] [address] Social History Tobacco Use [...] encounter Progress Notes Qing Guy RN - 08/31/2015 11:25 AM CST ANTICOAGULATION FOLLOW-UP CLINIC VISIT Patient Name: Charlette Brush Date: 08/31/2015 Contact Type: Face to Face SUBJECTIVE: Patient Findings Positives No Problem Findings OBJECTIVE INR PROTIME Date Value Ref Range Status 08/31/2015 2.2 Final INR assessment THER Recheck INR In: 4 WEEKS INR Location Clinic . Anticoagulation Summary as of 08/31/2015 INR goal 2.0-3.0 Selected INR 2.2 (08/31/2015) Maintenance plan 5 mg (10 mg x 0.5) on Mon; 7.5 mg (7.5 mg x 1) all other days Full instructions 5 mg on Mon; 7.5 mg all other days Weekly total 50 mg Plan last modified Qing Guy RN (08/31/2015) Next INR check Target end date Indefinite Indications Long-term (current) use of anticoagulants [Z79.01] [Z79.01] Pulmonary embolism and infarction [I26.99] Anticoagulation Episode Summary INR check location [facility] Preferred lab Send INR reminders to [facility] Comments Anticoagulation Care Providers Provider Role Specialty Phone number Lucero Stevenson MD Pediatrics [phone] Qing Guy RN FORCING IRON WORKER HELPER documented in this encounter Plan of Treatment Upcoming Encounters Date Type Specialty Care Team Description 11/15/2022 Virtual Visit Pharm D Haylie Cheung, [facility] [address] [facility] [place] [address] (Lena max) 11/15/2022 Virtual [place] [address] [place] [address] [place] [address] (Lena max) 03/03/2023 Virtual Visit Neurology Erlinda Barber MD 420 [facility] 295 [place] [address] (Lena max) documented as of this encounter Procedures Procedure Name Priority Date/Time Associated Diagnosis Comme nts INR POINT OF CARE Routine 08/31/2015 Pulmonary embolism and Results for this infarction (H) procedure are in the Long-term (current) use of r esults section. anticoagulants documented in this encounter Results INR point of care (08/31/2015) P athologist Signature INR Point of 2.2 [facility] Specimen (Source) Anatomical Location Collection Method / Collectio n Time Received Time / Laterality Volume 08/31/2015 Lucero Stevenson MD LAB - BLOOD ORDERABLES Performing Organization Address City/State/ZIP Code Phon e Number [facility] Y[facility]EL[facility] [address] [place] [address] documented in this encounter Visit Diagnoses Diagnosis Pulmonary embolism and infarction (H) - Primary Long-term (current) use of anticoagulant s Encounter for long-term (current) use of anticoagulants documented in this encounter Care Teams Field Broomer Relationship Specialty Start Date End Date Lucero Stevenson MD PCP - General Pediatrics 10/11/11 04/22/19 Chastity Montero MD MD Dermatology 09/23/[address] [place] [address] 98 [place] [address] documented as of this encounter
--- OUTSIDE RECORDS SUMMARY | 2022-06-15 13:19 | XMS_ITS | Encounter Summary ---
:1945 Author Organization [facility] Address [address] [place] [address] Care Team Providers Name Role Phone Lucero Stevenson MD Primary Care Provider [phone] Chastity Montero MD Unavailable [phone] Reason for Visit Reason Comments Anticoagulation Encounter Details Date Type Department Care Team Description 05/19/2015 [facility] Eag an Anticoagulation Visit 1440 [facility] [place] [address] Social History [...] encounter Progress Notes Qing Guy RN - 05/19/2015 1:38 PM CST ANTICOAGULATION FOLLOW-UP CLINIC VISIT Patient Name: Charlette Brush Date: 05/19/2015 Contact Type: Face to Face SUBJECTIVE: Bleeding Signs/Symptoms: None Thromboembolic Signs/Symptoms: None Medication Changes: No Dietary Changes: No Bacterial/Viral Infection: No Missed Coumadin Doses: None Other Concerns: No ASSESSMENT/PLAN: See: ANTICOAGULATION QIC flow sheet. INR Today: 2.5 New Warfarin Dose: same, 10mg M, 7.5mg TWTFSS = 55 Next INR in: 3 weeks Written instructions given to patient. [facility] Qing Guy RN PRESIDENT AND PORTFOLIO MANAGER documented in this encounter Plan of Treatment Upcoming Encounters Date Type Specialty Care Team Description 11/15/2022 Virtual Visit Pharm Haylie Gonzalez, [facility] [address] [facility] [facility] [address] [place], [place] [id number] (Wo rk) 11/15/2022 Virtual Visit [place] [address] [place] [address] [place] [id number] (Wo rk) 03/03/2023 Virtual Visit Neurology Erlinda Barber MD [address] [facility] 295 [place], [place] [id number] (Wo rk) documented as of this encounter Procedures Procedure Name Priority Date/Time Associated Diagnosis Comme nts INR POINT OF CARE Routine 05/19/2015 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 documented in this encounter Results INR point of care (05/19/2015) P athologist Signature INR Point of 2.5 0.86 - [facility] 1.14 LAB Specimen (Source) Anatomical Location Collection Method / Collectio n Time Received Time / Laterality Volume 05/19/2015 Lucero Stevenson MD LAB - BLOOD ORDERABLES Performing Organization Address City/State/ZIP Code Phon e Number [facility] documented in this encounter Visit Diagnoses Diagnosis USP current use of anticoagulant t herapy - Primary documented in this encounter Care Teams Tax Manager Cpa Relationship Specialty Start Date End Date Lucero Stevenson MD PCP - General Pediatrics 10/11/11 04/22/19 Chastity Montero MD MD Dermatology 09/23/[address] [place] [id number] documented as of this encounter
--- OUTSIDE RECORDS SUMMARY | 2022-06-15 13:19 | XMS_ITS | Encounter Summary ---
:1945 Author Organization [facility] Address [address] [place] [address] Care Team Providers Name Role Phone Lucero Stevenson MD Primary Care Provider [phone] Chastity Montero MD Unavailable [phone] Reason for Visit Reason Comments Anticoagulation Encounter Details Date Type Department Care Team Description 01/22/2015 [facility] Eag an Anticoagulation Visit 1440 [facility] [place] [address] Social History [...] this encounter Progress Notes Susie Murphy - 01/22/2015 1:23 PM CDT ANTICOAGULATION FOLLOW-UP CLINIC VISIT Patient Name: Charlette Brush Date: 01/22/2015 Contact Type: Face to Face SUBJECTIVE: Bleeding Signs/Symptoms: None Thromboembolic Signs/Symptoms: None Medication Changes: No Dietary Changes: No Bacterial/Viral Infection: No Missed Coumadin Doses: None Other Concerns: Doing PT R hip area Colonoscopy results nl. Resumed warfarin 01-13-15. ASSESSMENT/PLAN: See: ANTICOAGULATION QIC flow sheet. Will recheck INR when here at [facility] for PT Dosage adjustment made based on physician directed care plan. ANTICOAGULATION CLINIC Susie Murphy RN documented in this encounter Plan of Treatment Upcoming Encounters Date Type Specialty Care Team Description 11/15/2022 Virtual Visit Pharm Haylie Gonzalez, [facility] [address] [facility] [address] [place] [id number] (Wo rk) 11/15/2022 Virtual Visit IM/Peds Yane Barraza MD [address] [facility] [address] [place] [id number] (Wo rk) 03/03/2023 Virtual Visit Neurology Erlinda Barber MD [address] [facility] 295 [place], [place] [phone] (Wo rk) documented as of this encounter Procedures Procedure Name Priority Date/Time Associated Diagnosis Comme nts INR POINT OF CARE Routine 01/22/2015 correction 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
--- OUTSIDE RECORDS SUMMARY | 2022-06-15 13:19 | XMS_ITS | Encounter Summary ---
:1945 Author Organization [facility] Address [address] [place] [address] Care Team Providers Name Role Phone Luceor Stevenson MD Primary Care Provider [phone] Chastity Monetro MD Unavailable [phone] Reason for Visit Reason Comments Anticoagulation Encounter Details Date Type Department Care Team Description 03/24/2015 Allied Health/[facility] Eag an Anticoagulation Visit 1440 [facility] [place] [address] Social History Tobacco [...] encounter Progress Notes Qing Guy RN - 03/24/2015 10:18 AM CDT ANTICOAGULATION FOLLOW-UP CLINIC VISIT Patient Name: Charlette Brush Date: 03/24/2015 Contact Type: Face to Face SUBJECTIVE: Bleeding Signs/Symptoms: None Thromboembolic Signs/Symptoms: None Medication Changes: No Dietary Changes: No Bacterial/Viral Infection: No Missed Coumadin Doses: None Other Concerns: No ASSESSMENT/PLAN: See: ANTICOAGULATION QIC flow sheet. INR Today: 3.8 New Warfarin Dose: 7.5mg MWF, 10mg TTSS = 62.5 Next INR in: 2 weeks Written instructions given to patient. [facility] Qing Guy RN documented in this encounter Plan of Treatment Upcoming Encounters Date Type Specialty Care Team Description 11/15/2022 Virtual Visit Pharm Haylie Gonzalez, [facility] [address] [facility] [address] [place], [place] [phone] (Wo rk) 11/15/2022 Virtual Visit IM/Peds Yane Barraza MD [address] [facility] [address] [place] [id number] (Wo rk) 03/03/2023 Virtual Visit Neurology Erlinda Barber MD 420 [facility] 295 [place], [place] [phone] (Wo rk) documented as of this encounter Procedures Procedure Name Priority Date/Time Associated Diagnosis Comme nts INR POINT OF CARE Routine 03/24/2015 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
--- OUTSIDE RECORDS SUMMARY | 2022-06-15 13:19 | XMS_ITS | Encounter Summary ---
:1945 Author Organization [facility] Address [address] [place] [address] Care Team Providers Name Role Phone Lucero Stevenson MD Primary Care Provider [phone] Chastity Montero MD Unavailable [phone] Reason for Visit Reason Comments Anticoagulation Encounter Details Date Type Department Care Team Description 06/29/2015 Allied [facility] Eag an Anticoagulation Visit 1440 [facility] [place] [address] Social History Tobacco Use [...] encounter Progress Notes Prudence Austin RN - 06/29/2015 1:46 PM CST ANTICOAGULATION FOLLOW-UP CLINIC VISIT Patient Name: Charlette Brush Date: 06/29/2015 Contact Type: Face to Face SUBJECTIVE: Bleeding Signs/Symptoms: No Thromboembolic Signs/Symptoms: None Medication Changes: No Dietary Changes: No Bacterial/Viral Infection: Pt has small scabbed over area with surrounding redness (size of nickel) on lower back above waistband. She states it has been there for at least a week and bled slightly the past 2 nights. Pt will notify PCP or Dermatology as needed. Missed Coumadin Doses: None Other Concerns: No ASSESSMENT/PLAN: See: ANTICOAGULATION QIC flow sheet. INR Today: 3.9 Current Warfarin Dose: 55mg in the past 7 days Range: Supra Therapeutic INR Goal: 2.0-3.0 New Warfarin Dose: 5mg M, 7.5mg TWTFSS = 50mg/wk Next INR in: 2 weeks ANTICOAGULATION CLINIC Prudence Austin RN E RECEPTIONIST documented in this encounter Plan of Treatment Upcoming Encounters Date Type Specialty Care Team Description 11/15/2022 Virtual Visit Pharm D Haylie Cheung, [facility] [address] [facility] [place] [address] (Lena max) 11/15/2022 Virtual Visit [place] [address] [place] [address] [place] [phone] (Lena max) 03/03/2023 Virtual Visit Neurology Erlinda Barber MD [address] [facility] 295 [place] [address] (Lena max) documented as of this encounter Procedures Procedure Name Priority Date/Time Associated Diagnosis Comme nts INR POINT OF CARE Routine 06/29/2015 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 documented in this encounter Results (ABNORMAL) INR point of care (06/29/2015) P athologist Signature INR Point of 3.9 (A) 0.86 - [facility] 1.14 LAB Specimen (Source) Anatomical Location Collection Method / Collectio n Time Received Time / Laterality Volume 06/29/2015 Lucero Stevenson MD LAB - BLOOD ORDERABLES Performing Organization Address City/State/ZIP Code Phon e Number [facility] documented in this encounter Visit Diagnoses Diagnosis senior care current use of anticoagulant t herapy - Primary documented in this encounter Care Teams Aoc Director Combat Plans Officer Relationship Specialty Start Date End Date Lucero Stevenson MD PCP - General Pediatrics 10/11/11 04/22/19 Chastity Montero MD MD Dermatology 09/23/14 [address] [facility] [address] [place] [address] documented as of this encounter
--- OUTSIDE RECORDS SUMMARY | 2022-06-15 13:19 | XMS_ITS | Encounter Summary ---
:1945 Author Organization [facility] Address [address] [place] [address] Care Team Providers Name Role Phone Lucero Stevenson MD Primary Care Provider [phone] Chastity Montero MD Unavailable [phone] Reason for Visit Reason Comments Anticoagulation Encounter Details Date Type Department Care Team Description 04/21/2015 [facility] Eag an Anticoagulation Visit 14[address] [facility] [place] [address] Social History Tobacco Use [...] encounter Progress Notes Qing Guy RN - 04/21/2015 11:36 AM CDT ANTICOAGULATION FOLLOW-UP CLINIC VISIT Patient Name: Charlette Brush Date: 04/21/2015 Contact Type: Face to Face SUBJECTIVE: Bleeding Signs/Symptoms: None Thromboembolic Signs/Symptoms: None Medication Changes: No Dietary Changes: No Bacterial/Viral Infection: No Missed Coumadin Doses: None Other Concerns: Last 4 INRs have been supratherapeutic despite reducing weekly warfarin dose. Unknown cause. ASSESSMENT/PLAN: See: ANTICOAGULATION QIC flow sheet. INR Today: 3.9 New Warfarin Dose: hold today, then 10mg MWF, 7.5mg TTSS = 60 Next INR in: 2 weeks Written instructions given to patient. ANTICOAGULATION CLINIC Qing Guy RN documented in this encounter Plan of Treatment Upcoming Encounters Date Type Specialty Care Team Description 11/15/2022 Virtual Visit Pharm Haylie Gonzalez, [facility] [address] [facility] [address] [place] [phone] (Lena max) 11/15/2022 Virtual Visit IM/Peds Yane Barraza MD [address] [facility] [place] [phone] (Lena max) 03/03/2023 Virtual Visit Neurology Erlinda Barber MD 420 [facility] 295 [place], [place] [phone] (Lena max) documented as of this encounter Procedures Procedure Name Priority Date/Time Associated Diagnosis Comme nts INR POINT OF CARE Routine 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
--- OUTSIDE RECORDS SUMMARY | 2022-06-15 13:19 | XMS_ITS | Encounter Summary ---
:1945 Author Organization [facility] Address [address] [place] [address] Care Team Providers Name Role Phone Lucero Stevenson MD Primary Care Provider [phone] Chastity Montero MD Unavailable [phone] Encounter Details Date Type Department Care Team Description 10/26/2015 Anticoagulation Therapy [facility] Pulmonary embolism and infarction (H) (Primary Dx); Visit [facility] Long-term (current) use of a nticoagulants [facility] [facility] [employer] [facility] [place] [address] Social History Tobacco Use [...] encounter Progress Notes Qing Guy RN - 10/26/2015 11:09 AM CDT ANTICOAGULATION FOLLOW-UP CLINIC VISIT Patient Name: Charlette Brush Date: 10/26/2015 Contact Type: Face to Face SUBJECTIVE: Patient Findings Comments She has seasonal allergies. OBJECTIVE INR PROTIME Date Value Ref Range Status 10/26/2015 1.9 Final ASSESSMENT / PLAN INR assessment THER Recheck INR In: 4 WEEKS INR Location Clinic Anticoagulation Summary as of 10/26/2015 INR goal 2.0-3.0 Selected INR 1.9! (10/26/2015) Maintenance plan 5 mg (10 mg x 0.5) on Mon; 7.5 mg (7.5 mg x 1) all other days Full instructions 5 mg on Mon; 7.5 mg all other days Weekly total 50 mg No change documented Qing Guy RN Plan last modified Qing Guy RN (08/31/2015) Next INR check 11/23/2015 Target end date Indefinite Indications Long-term (current) use of anticoagulants [Z79.01] [Z79.01] Pulmonary embolism and infarction [I26.99] Anticoagulation Episode Summary INR check location Coumadin Clinic Preferred lab Send INR reminders to [facility] Comments 5mg tabs // devaughn dose Anticoagulation Care Providers Provider Role Specialty Phone number Lucero Stevenson MD Pediatrics [phone] Qing Guy RN documented in this encounter Plan of Treatment Upcoming Encounters Date Type Specialty Care Team Description 11/15/2022 Virtual Visit Pharm Haylie Gonzalez, [facility] 14[address] [facility] [place] [address] (Wo winter) 11/15/2022 Virtual Visit IM/Peds Yane Barraza MD [address] [facility] [place] [address] (Wo winter) 03/03/2023 Virtual Visit Neurology Erlinda Barber MD 420 [facility] 295 [place] [address] (Wo rk) documented as of this encounter Procedures Procedure Name Priority Date/Time Associated Diagnosis Comme nts INR POINT OF CARE Routine 10/26/2015 Pulmonary embolism and Results for this infarction (H) procedure are in the Long-term (current) use of r esults section. anticoagulants documented in this encounter Results INR point of care (10/26/2015) P athologist Signature INR Point of 1.9 [facility] Specimen (Source) Anatomical Location Collection Method / Collectio n Time Received Time / Laterality Volume 10/26/2015 Lucero Stevenson MD LAB - BLOOD ORDERABLES Performing Organization Address City/State/ZIP Code Phon e Number [facility] [address] [place] [address] documented in this encounter Visit Diagnoses Diagnosis Pulmonary embolism and infarction (H) - Primary Long-term (current) use of anticoagulant s Encounter for long-term (current) use of anticoagulants documented in this encounter Care Teams Digital Sales Executive Relationship Specialty Start Date End Date Lucero Stevenson MD PCP - General Pediatrics 10/11/11 04/22/19 Chastity Montero MD MD Dermatology 09/23/14 [address] [facility] 98 [place] [address] documented as of this encounter
--- OUTSIDE RECORDS SUMMARY | 2022-06-15 13:19 | XMS_ITS | Encounter Summary ---
:1945 Author Organization [facility] Address [address] [place] [address] Care Team Providers Name Role Phone Lucero Stevenson MD Primary Care Provider [phone] Chastity Montero MD Unavailable [phone] Reason for Visit Reason Comments Anticoagulation Encounter Details Date Type Department Care Team Description 03/10/2015 [facility] Eag an Anticoagulation Visit 1440 [facility] [place] [address] Social History Tobacco Use [...] this encounter Progress Notes Susie Murphy - 03/10/2015 10:21 AM CDT ANTICOAGULATION FOLLOW-UP CLINIC VISIT Patient Name: Charlette Brush Date: 03/10/2015 Contact Type: Face to Face SUBJECTIVE: Bleeding Signs/Symptoms: None Thromboembolic Signs/Symptoms: None Medication Changes: No Dietary Changes: No Bacterial/Viral Infection: No Missed Coumadin Doses: None Other Concerns: No ASSESSMENT/PLAN: See: ANTICOAGULATION QIC flow sheet. MEDICATION MANAGEMENT: Education Provided: Hold today; then, 7.5mg MF, 10mg TWTSS and recheck INR 2 wks Dosage adjustment made based on physician directed care plan. ANTICOAGULATION CLINIC Susie Murphy RN documented in this encounter Plan of Treatment Upcoming Encounters Date Type Specialty Care Team Description 11/15/2022 Virtual Visit Pharm Haylie Gonzalez, [facility] [address] [facility] [address] [place] [phone] (Wo rk) 11/15/2022 Virtual Visit IM/Peds Yane Barraza MD [address] [facility] [address] [place] [id number] (Wo rk) 03/03/2023 Virtual Visit Neurology Erlinda Barber MD 420 [facility] 295 [place], [place] [phone] (Wo rk) documented as of this encounter Procedures Procedure Name Priority Date/Time Associated Diagnosis Comme nts INR POINT OF CARE Routine 03/10/2015 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
--- OUTSIDE RECORDS SUMMARY | 2022-06-15 13:19 | XMS_ITS | Encounter Summary ---
:1945 Author Organization [facility] Address [address] [place] [address]. [place] [address] Care Team Providers Name Role Phone Lucero Stevenson MD Primary Care Provider [phone] Chastity Montero MD Unavailable [phone] Reason for Visit Reason Comments Derm Problem Charlette is here today for a sk in check, she states she is here for a f/u with an ulcer on her lower b ack, the ulcer has gotten better since last visit. Encounter Details Date Type Department Care Team Description 06/16/2015 Office Visit Dermatology Chastity Montero Venous stasis 5th Floor, Clinic 5A MD Martha dermatitis of both [place] [address] [facility] extremities [facility] 98 (Primary Dx) 516 [facility] 88 [address] [place], [place] [phone] (Work) [phone] Social History Tobacco Use Types Packs/Day Years [...] - - Height 170.2 cm (5' 7) 06/16/2015 11:13 AM SPECIAL DELIVERY CARRIER Body Mass Index - - documented in this encounter Patient Instructions Patient InstructionsMoNini chavez MD - 06/16/2015 11:35 AM SPECIAL DELIVERY CARRIER Try putting a dry soft washcloth along the waistband where the newer area of irritation is to prevent waistband from further irritating the area. IAL DELIVERY CARRIER documented in this encounter Progress Notes Malachi Morales CMA - 06/16/2015 12:45 PM CST Images from the original note were not included. Placed pictures of patient in chart for further treatment. IAL DELIVERY CARRIER Chastity Montero MD - 06/16/2015 11:52 AM CST CHIEF COMPLAINT: Followup for ulcers on the back. DERMATOLOGY PROBLEM LIST: 1. Nummular stasis dermatitis. 2. Allergic contact allergies: Status post patch testing with multiple allergens. 3. Left lower back ulceration since 08/2012; healed 4. 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 She has a history of significant ACD s/p patch testing with many positives. She has not had issues since her last visit. Thinks her ulceration is healed. Has been using desoximetasone 0.05% gel on the lower legs PRN. Has not been using compression stockings as they roll down her legs. Feeling well today. Is retired and is able to have legs up for part of the day. REVIEW OF SYSTEMS: She is otherwise well and has no other skin complaints. PHYSICAL EXAMINATION: GENERAL: Charlette is an obese female with fair skin and red hair. She is in no acute distress. She is very cooperative with the entire exam. SKIN: A limited skin exam of the face, neck, back and lower extremities reveals the following: - Skin Andre type I. - central lumbar back with well healed atrophic scar, left lumbar back at the waistband there is a small area of redness and mild irritation - not frankly opened up at this time. - generally dry skin - bilateral lower extremities with has lichenified skin with flesh-colored, firm papules, woody texture with much scale. No erythema or ulceration today. ASSESSMENT AND PLAN: 1. Severe contact allergic dermatitis. No active disease today. 2. Ulcerations of back, healed; Perhaps the new lesion on the left lower back could open. Have askedher to place a dry soft wash cloth between the waist band and the irritated area to prevent further trauma in that area. 3. Stasis dermatitis with lichenification. Continue desoximetasone gel prn for any redness on the lower legs. She is stable today. She has already been seen by the [facility]. She is unable to wear compression stockings. We will follow clinically for now. Follow up in 12 weeks. Seen and staffed with Dr. Chastity Murphy MD PGY2 Dermatology Resident .I was present for yancey portions of the history and exam. See resident note for pertinent history, exam, and treatment plan. Chastity Montero MD IAL DELIVERY CARRIER documented in this encounter Nursing Notes Malachi Morales, BLAZE - 06/16/2015 11:15 AM CST Dermatology Rooming Note Charlette Brush's goals for this visit include: Chief Complaint Patient presents with ??? Derm Problem Charlette is here today for a skin check, she states she is here for a f/u with an ulcer on her lower back, the ulcer has gotten better since last visit. Malachi Morales IAL DELIVERY CARRIER documented in this encounter Plan of Treatment Upcoming Encounters Date Type Specialty Care Team Description 11/15/2022 Virtual Visit Pharm Haylie Gonzalez, [facility] [address] [place] [address] (Wo rk) 11/15/2022 Virtual Visit IM/Peds Yane Barraza MD [address] [facility] [address] (Wo rk) 03/03/2023 Virtual Visit Neurology Erlinda Barber MD [address] [facility] [address] [place], [place] [id number] (Wo rk) documented as of this encounter Visit Diagnoses Diagnosis Venous stasis dermatitis of both lower e xtremities - Primary documented in this encounter Care Teams Medical Reception Relationship Specialty Start Date End Date Lucero Stevenson MD PCP - General Pediatrics 10/11/11 04/22/19 Chastity Montero MD MD Dermatology 09/23/14 [address] [facility] 98 [place], [place] [id number] documented as of this encounter
--- OUTSIDE RECORDS SUMMARY | 2022-06-15 13:19 | XMS_ITS | Encounter Summary ---
:1945 Author Organization [facility] Address [address] [place] [address]. [place] [address] Care Team Providers Name Role Phone Lucero Stevenson MD Primary Care Provider [phone] Chastity Montero MD Unavailable [phone] Reason for Visit Reason Comments Derm Problem Charlette is here today for a sk in check, she states she is here for a f/u with an ulcer on her lower b ack, the lesion has now broken ope about a month ago, quite irritating when pressure is applied. Encounter Details Date Type Department Care Team Description 09/15/[address] [facility] Dermatology Chastity Montero Chronic ulcer skin, limited to breakdown of skin (H) (Primary Dx); [address] [facility] MD Martha Venous stasis dermatitis of both lower e xtremities 3rd Floor [address] [place] [address] 98 [phone] [place], [place] [phone] (Wo rk) Social History Tobacco Use Types [...] Sign Reading Time Taken Comments Blood Pressure 167/72 09/15/2015 10:29 AM CYCLE MANAGER Pulse 66 09/15/2015 10:29 AM CYCLE MANAGER Temperature - - Respiratory Rate - - Oxygen Saturation - - Inhaled Oxygen Concentration - - Weight - - Height 167.6 cm (5' 6) 09/15/2015 10:29 AM CYCLE MANAGER Body Mass Index - - documented in this encounter Progress Notes Malachi Morales CMA - 09/16/2015 1:54 PM CST Images from the original note were not included. Placed pictures of patient in chart for further treatment. E MANAGER Chastity Montero MD - 09/15/2015 10:51 AM CST CHIEF COMPLAINT: Followup for ulcers on the back. September 15, 2015 DERMATOLOGY PROBLEM LIST: 1. Nummular stasis dermatitis. 2. Allergic contact allergies: Status post patch testing with multiple allergens. 3. Left lower back ulceration since 08/2012; healed 4. Lymphedema with sequelae: stasis dermatitis with lichenification HISTORY OF PRESENT ILLNESS: Charlette is a 70-year-old female who presents to clinic for followup after her last visit on 06/16/15, at which time she was asked to continue desoximetasone for her stasis dermatitis. She returns today reporting that the central area of chronic ulceration (biopsy suggestive of trauma) re-opened about 1month ago. No pain, minimal serosanguinous drainage. She has been applying hydrocortisone cream and petrolatum daily. No other areas of involvement elsewhere. Her stasis dermatitis has been well-controlled despite only using topical desoximetasone no compression. REVIEW OF SYSTEMS: She is otherwise well and has no other skin complaints. No other skin concerns orrashes. No other rapidly-growing, bleeding, tender, nonhealing, painful, or tender lesions elsewhere. No recent illness, fevers, chills, drenching night sweats, loss of appetite, or unexpected weight changes. PHYSICAL EXAMINATION: GENERAL: Charlette is an obese female with fair skin and red hair. She is in no acute distress. She is very cooperative with the entire exam. SKIN: A limited skin exam of the face, neck, back and lower extremities reveals the following: - Skin Andre type I. - central lumbar back with well healed atrophic scars, and within the medial aspect there is a 4.5mmred-rimmed marginate ulceration with a fibrinous base. Compared to previous phot, the lateralmost aspect is considerably less inflamed. - generally dry skin - bilateral lower extremities with has agminate flesh-colored, papules, subtle woody texture and uniform xerotic scaling. No erythema or ulceration today. ASSESSMENT AND PLAN: 1. Severe contact allergic dermatitis. No active disease today. 2. Trauamtic ulcerations of back, ongoing, apparently due to trauma from clothing waistbands, historically improvent with wearing dresses in the summer time.; - repeat cultures today, with understanding that she cannot tolerate topical antimicrobials - continue Vaseline and hydrocortisone PRN 3. Stasis dermatitis with lichenification. Not currently wearing compression citing difficulty keeping In place, but had better luck with zippered stockings in the early 00's. - Continue desoximetasone gel prn for any redness on the lower legs. - RX: custom fit knee high zippered Jobst stockings 20-30mmHg Follow up in 6 weeks. Discussed and examined with [facility] staff car cleaning supervisor Dr. Chastity Montero .I was present for yancey portions of the history and exam. See resident note for pertinent history, exam, and treatment plan. Chastity Montero MD E MANAGER documented in this encounter Nursing Notes Malachi Morales CMA - 09/15/2015 10:32 AM CST Dermatology Rooming Note Charlette Brush's goals for this visit include: Chief Complaint Patient presents with ??? Derm Problem Charlette is here today for a skin check, she states she is here for a f/u with an ulcer on her lower back, the lesion has now broken ope about a month ago, quite irritating when pressure is applied. Malachi Morales E MANAGER documented in this encounter Plan of Treatment Upcoming Encounters Date Type Specialty Care Team Description 11/15/2022 Virtual Visit Pharm D Haylie Cheung, [facility] [address] [place] [address] (Wo rk) 11/15/2022 Virtual Visit IM/Peds Yane Barraza MD [address] [facility] [place] [address] (Wo rk) 03/03/2023 Virtual Visit Neurology Erlinda Barber MD [address] [facility] 295 [place] [address] (Wo rk) documented as of this encounter Procedures Procedure Name Priority Date/Time Associated Diagnosis Comme nts SKIN CULTURE Routine 09/15/2015 11:03 AM Chronic ulcer skin, R esults for this AEROBIC BACTERIAL CYCLE MANAGER limited to breakdown pr ocedure are in of skin (H) the results section. documented in this encounter Results (ABNORMAL) Skin Culture Aerobic Bacterial (09/15/2015 11:03 AM CYCLE MANAGER) Component Value Ref Test Analysis Performed At [facility] Range Method Time Signature Specimen Back Left Lower [facility] Culture Micro Heavy growth INFECTIOUS Staphylococcus DISEASE aureus (A) DIAGNOSTIC LABORATORY Micro Report FINAL 09/17/2015 INFECTIOUS Status DISEASE DIAGNOSTIC LABORATORY Organism: Heavy growth INFECTIOUS Staphylococcus DISEASE aureus DIAGNOSTIC LABORATORY Specimen Anatomical Collection Method Collection Time Receive d Time (Source) Location / / Volume Laterality Specimen from 09/15/2015 11:03 09/15/2015 skin (specimen) AM CYCLE MANAGER 12:01 PM CYCLE MANAGER Organism Antibiotic Method Susceptibility Heavy growth staphylococcus Ciprofloxacin <=0. 5 Susceptible ug/mL aureus (barb) Heavy growth staphylococcus Clindamycin <=0. 25 Susceptible ug/mL aureus (barb) Heavy growth staphylococcus Erythromycin <=0. 25 Susceptible ug/mL aureus (barb) Heavy growth staphylococcus Gentamicin <=0. 5 Susceptible ug/mL aureus (barb) Heavy growth staphylococcus Levofloxacin <=0. 12 Susceptible ug/mL aureus (barb) Heavy growth staphylococcus Oxacillin 0.5 Susceptible ug/mL aureus (barb) Heavy growth staphylococcus Penicillin >2.0 Resistant ug/mL aureus (barb) Heavy growth staphylococcus Tetracycline <=1 Susceptible ug/mL aureus (barb) Heavy growth staphylococcus Trimethoprim/Sulfamethoxa <=.5/9.5 Susceptible ug/mL aureus (barb) zole Heavy growth staphylococcus Vancomycin 1 Aguilar sceptible ug/mL aureus (barb) Chastity Montero MD LAB - MICRO GENERAL ORDERABL ES Performing Organization Address City/State/ZIP Code Phon e Number INFECTIOUS DISEASES [address] [place] [address] DI[facility]STIC LABORATORY, [address] INFECTIOUS DISEASE [address] [facility] LAB[facility]ORY documented in this encounter Visit Diagnoses Diagnosis Chronic ulcer skin, limited to breakdown of skin (H) - Primary Venous stasis dermatitis of both lower e xtremities documented in this encounter Care Teams Medicare Nurse Relationship Specialty Start Date End Date Lucero Stevenson MD PCP - General Pediatrics 10/11/11 04/22/19 Chastity Montero MD MD Dermatology 09/23/[address] [address] documented as of this encounter
--- OUTSIDE RECORDS SUMMARY | 2022-06-15 13:20 | XMS_ITS | Encounter Summary ---
:1945 Author Organization [facility] Address [address] [place] [address] Care Team Providers Name Role Phone Lucero Stevenson MD Primary Care Provider [phone] Chastity Montero MD Unavailable [phone] Reason for Visit Auth/Cert - Closed Specialty Diagnoses / Procedures Referred By Contact Refer red To Contact Gastroenterology Diagnoses screening Rh Endoscopy Procedures COLONOSCOPY [address] [place] [address] Phone: Fax: Referral ID Status Reason Start Date Expiration Date Visits Requ ested Visits Authorized [id number] Closed 1 1 Encounter Details Date Type Department Care Team Description 01/13/2015 Anesthesia Event [facility] Vincent Solitario MD [facility] ANESTHESIA [address] [place] [address] [facility] Johnnie Cannon APRN CRNA [facility] [address] [place] [address] [address] [place] [address] Anesthesia Record Procedure Summary Procedure Name Responsible Anesthesia Start Anesthesia Stop Anesthesiologist Time Time COLONOSCOPY (fv) Kassi SHER James William, 01/13/15 1329 0 01/13/15 1409 [place], 01/02 *Needs INR MD check* - See Notes before pre-call (Rectum) Events Date Time Event Comment 01/13/2015 1329 An Start 1329 MD Present 1334 An Start Data 1345 MD Present 1409 an stop data 1409 An Stop Electronically s igned by Nabor Balderas CRNA on January 13, 2015 2:10 PM 1409 MD Present Name Total lidocaine 1% 50 mg propofol 10mg/mL 210 mg lactated ringers infusion 300 mL Agents Name O2 Exp Sevoflurane Blood No blood administrations on file. Lines, Drains, and Airways Type Details Placement Removal Incision/Surgical Site 01/13/15; Rectum; 01/13/15 0000 by 1347 by 08/08/18; 1347 Janie Cheung RN [place], Satnam Goncalves RN Peripheral IV 01/13/15; 1312; 22 G, 01/13/15 1312 by 01/13/15 1407 by 1 1/4 inch; Right, Jose Juan Solitario, acy Anterior; Lower MD Bisi Blandon RN forearm; Alcohol; Injectable; Tolerated well documented in this encounter Social [...] encounter OR Notes Anesthesia Postprocedure Evaluation - Jose Juan Solitario MD - 01/13/2015 2:18 PM CDT Patient: Charlette Brush COLONOSCOPY (N/A Rectum) Additional InformationProcedure(s): COLONOSCOPY (fv) PS, NC, 01/02 *Needs INR check* - See Notes before pre-call Diagnosis:screening Diagnosis Additional Information: Normal colonoscopy Super-morbid obesity Anesthesia Type: MAC Note: Anesthesia Post Evaluation Patient location during evaluation: PACU Patient participation: Able to fully participate in evaluation Level of consciousness: awake and alert Pain management: adequate Airway patency: patent Anesthetic complications: no Cardiovascular status: acceptable Respiratory status: acceptable Hydration status: acceptable PONV: none Last vitals: Filed Vitals: 01/13/15 1225 BP: 150/80 Temp: 97.7 ??F (36.5 ??C) Resp: 22 SpO2: 93% Electronically Signed By: Jose Juan Solitario MD January 13, 2015 2:18 PM Anesthesia Preprocedure Evaluation - Jose Juan Solitario MD - 01/13/2015 1:16 PM CDT Anesthesia Evaluation . Pt has had prior anesthetic. Type: General No history of anesthetic complications ROS/MED HX ENT/Pulmonary: (+)sleep apnea, , . . Neurologic: - neg neurologic ROS Cardiovascular: (+) hypertension . : . . . :. . METS/Exercise Tolerance: Hematologic: Comments: history of pulmonary embolism (+) History of blood clots - Musculoskeletal: - neg musculoskeletal ROS GI/Hepatic: (+) GERD Renal/Genitourinary: - ROS Renal section negative Endo: - neg endo ROS Psychiatric: - neg psychiatric ROS Infectious Disease: - neg infectious disease ROS Malignancy: - no malignancy Other: - neg other ROS Physical Exam Normal systems: cardiovascular, pulmonary and dental Airway Mallampati: III TM distance: >3 FB Neck ROM: full Dental Cardiovascular Pulmonary Other findings: Super-morbid obesity Anesthesia Plan ASA Score: 3 . Plan for MAC - Anesthetic plan, risks, benefits and alternatives discussed with: patient or pharmaceutical specialty representative. Routine analgesia and antiemetics History & Physical Review History and physical reviewed and following examination; no interval change. . documented in this encounter Miscellaneous Notes Anesthesia Care Transfer Note - Nabor Balderas APRN CORK WIRER - 01/13/2015 2:09 PM CDT Patient: Charlette Brush COLONOSCOPY (N/A Rectum) Additional Information@[email or web address]@ Diagnosis: screening Diagnosis Additional Information: No value filed. Anesthesia Type: MAC Note: Airway :Face Mask Patient transferred to:Phase II Comments: Pt meets crtiteria for phase 2. Report to RN Electronically Signed By: Nabor Balderas CRNA, APRN CRNA January 13, 2015 2:09 PM documented in this encounter Plan of Treatment Upcoming Encounters Date Type Specialty Care Team Description 11/15/2022 Virtual Visit Pharm D Haylie Cheung, [facility] [address] [facility] [place] [address] (Wo winter) 11/15/2022 Virtual Visit IM/Peds Yane Barraza MD [address] [facility] [place] [address] (Wo winter) 03/03/2023 Virtual Visit Neurology Erlinda Barber MD [address] [facility] [address] [place] [address] (Wo winter) documented as of this encounter Visit Diagnoses Not on filedocumented in this encounter Administered Medications Inactive Administered Medications - up to 3 most recent administrations Medication Order MAR Action Action Date Dose Rate Site lactated ringers infusion New Bag 01/13/2015 1:29 PM CDT at 75-100 mL/hr, Intravenous, CONTINUOUS, UNLESS otherwise indicated., Pre-procedure, Starting on Mon01/13/15 at 1300, Until Mon01/13/15 at 1408 lidocaine 1 % injection Given 01/13/2015 1:45 PM CDT 30 mg PRN, Starting on Mon01/13/15 at 1345, Anesthesia Intra-op Given 01/13/2015 1:37 PM CDT 20 mg propofol (DIPRIVAN) injection 10 mg/mL v ial Given 01/13/2015 1:55 PM CDT 50 mg PRN, Starting on Mon01/13/15 at 1337, Anesthesia Intra-op Given 01/13/2015 1:50 PM CDT 30 mg Given 01/13/2015 1:45 PM CDT 80 mg documented in this encounter Care Teams Shipping Specialist Relationship Specialty Start Date End Date Lucero Stevenson MD PCP - General Pediatrics 10/11/11 04/22/19 Chastity Montero MD MD Dermatology 09/23/[address] [place] [address] documented as of this encounter
--- OUTSIDE RECORDS SUMMARY | 2022-06-15 13:20 | XMS_ITS | Encounter Summary ---
:1945 Author Organization [facility] Address [address] [place] [address] Care Team Providers Name Role Phone Lucero Stevenson MD Primary Care Provider [phone] Chastity Montero MD Unavailable [phone] Encounter Details Date Type Department Care Team Description 01/08/2015 Therapy Visit [facility] for Andrea Bradford Hip pain , right Athletic Medicine - W, PT (Primary Dx) [facility] Physical [address] Therapy [place] [id number] [facility] [address] [address] [place] [address] Social History Tobacco Use Types Packs/Day [...] documented as of this encounter Progress Notes Esha Candelario R - 01/08/2015 1:24 PM CDT Subjective: Pertinent medical history includes: Overweight, high blood pressure, sleep disorder/apnea and other(pulmonary embolism). Medical allergies: yes (Lanolin, neomycin, many contact). Other surgeries include: None reported. Current medications: Heparin/coumadin, anti-inflammatory and high blood pressure m edication. Current occupation is Retired. 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 Barriers include: None as reported by patient. Red flags: None as reported by patient. Oswestry Score: 37.5 % Objective: System Physical Exam General ROS Assessment/Plan: Andrea Bradford, PT - 01/08/2015 9:17 AM CDT [facility] Initial Evaluation Subjective: Charlette Brush is a 70 year old female with a right hip condition. Condition occurred with: Insidious onset. Condition occurred: for unknown reasons. This is a new condition Patient reports sudden onset of right anterior hip pain while cleaning her home approximately 12/04/2014. Exact mechanism of injury unknown. Patient c/o difficulty going up/down stairs/curbs, walking, and rising from a chair. She has pain when lifting leg and standing, stretching upright. Patient has chronic knee pain and is morbidly obese. Patient reports pain: Anterior. Radiates to: No radiation. Pain is described as sharp and is intermittent Pain Scale: 0-7/10. Associated symptoms: Loss of motion/stiffness (patient denies any LE numbness/tingling). Pain is worse in the A.M.. Symptoms are exacerbated by certain positions, ascending stairs, descending stairs, transfers and walking and relieved by rest and analgesics. Since onset symptoms are gradually improving. Special testing: none. General health as reported by patient is fair. Barriers include: Stairs and lives alone. Red flags: None as reported by the patient. Objective: Gait: Assistive Devices: None Deviations: Lumbar: Trunk lean R and trunk lean LGeneral Deviations: Leslie decr and stride length decr Hip Evaluation HIP AROM: : Allow for normal function. : Allows for normal function. Hip Strength: : 4+/5 estimated for all hip groups. General ROS Assessment/Plan: Patient is a 70 year old female with right side hip complaints. Patient has the following significant findings with corresponding treatment plan. Diagnosis 1: Hip pain - Scope of objection evaluation limited d/t morbid obesity. Pain - self management, education and home program Decreased strength - therapeutic exercise, therapeutic activities and home program Impaired gait - gait training and home program Impaired muscle performance - neuro re-education and home program Decreased function - therapeutic activities and home program Previous and current functional limitations: (See Goal Flow Sheet for this information) Short term and prison goals: (See Goal Flow Sheet for this information) Communication ability: Patient appears to be able to clearly communicate and understand verbal and written communication and follow directions correctly. Treatment Explanation - The following has been discussed with the patient: RX ordered/plan of care Anticipated outcomes Possible risks and side effects This patient would benefit from PT intervention to resume normal activities. Rehab potential is good. Frequency: 1 X week, once daily Duration: for 6 weeks Discharge Plan: Achieve all LTG. Independent in home treatment program. Reach maximal therapeutic benefit. Please refer to the daily flowsheet for treatment today, total treatment time and time spent performing 1:1 timed codes. documented in this encounter Plan of Treatment Upcoming Encounters Date Type Specialty Care Team Description 11/15/2022 Virtual Visit Pharm Haylie Gonzalez, [facility] [address] [place] [id number] (Lena max) 11/15/2022 Virtual Visit [place] [address] [place] [address] [place] [address] (Lena max) 03/03/2023 Virtual Visit Neurology Erlinda Barber MD [address] [facility] [address] [place] [address] (Lena max) documented as of this encounter Procedures Procedure Name Priority Date/Time Associated Diagnosis Comme [facility] THERAPEUTIC Routine 01/08/2015 10:08 AM Hip pain, right EXERCISES CDT documented in this encounter Visit Diagnoses Diagnosis Hip pain, right - Primary Pain in joint, pelvic region and thigh documented in this encounter Care Teams Barrel Finisher Relationship Specialty Start Date End Date Lucero Stevenson MD PCP - General Pediatrics 10/11/11 04/22/19 Chastity Montero MD MD Dermatology 09/23/[address] [place] [id number] documented as of this encounter
--- OUTSIDE RECORDS SUMMARY | 2022-06-15 13:20 | XMS_ITS | Encounter Summary ---
:1945 Author Organization [facility] Address [address] [place] [address] Care Team Providers Name Role Phone Lucero Knox MD Primary Care Provider [phone] Chastity Montero MD Unavailable [phone] Reason for Referral [facility] - Closed Specialty Diagnoses / Procedures Referred By Contact Refer red To Contact Diagnoses Hip pain, right Lucero Knox FOR ATHLETIC Annetta, MD [address] [place] [address] [place] [address] Phone: [phone] Referral ID Status Reason Start Date Expiration Date Visits Requ ested Visits Authorized [id number] Closed 12/30/2014 06/28/2015 1 1 Specialty Diagnoses / Procedures Referred By Contact Refer red To Contact Lucero Knox MD [facility] [address] [place] [address] Referral ID Status Reason Start Date Expiration Date Visits Requ ested Visits Authorized Scheduling Instructions ANTICOAGULATION CLINIC COLLABORATIVE PRA CTICE AGREEMENT The following represents a collaborative practice agreement among the physicians of the Clinic and staff of the Anticoagulat ion Clinic Service ([facility]) Physicians shall: 1. Refer patients requiring anticoagulat ion to a specialty service staffed by personnel of Pharmacy Services and super vised by Clinic physicians. 2. Respond to questions and referrals fr pharmacy staff regarding delinquent or difficult patients. 3. Inform the [facility] staff when a new patie nt is [...] Initiate vitamin K therapy when sergio cated. Diagnostic Procedure Outpatient - Closed Specialty Diagnoses / Procedures Referred By Contact Refer red To Contact Diagnoses Screening for colon cancer Lucero Knox M [facility] [address] [phone] Fax: Referral ID Status Reason Start Date Expiration Date Visits Requ ested Visits Authorized [id number] Closed 12/30/2014 06/28/2015 1 1 Reason for Visit Reason Comments Wellness Visit Encounter Details Date Type Department Care Team Description 12/30/2014 Office Visit [facility] Lucero Knox Medic are annual wellness visit, initial (Primary Dx); Yarelis Littlejohn MD Hip pain, right; [address] [place] Essential hypertension, benign; [place] [phone] [address] Morbid obesity (H); [phone] RD Pre-diabetes; [place] [address] Vitamin D deficiency; [phone] (Wo rk) Other pulmonary embolism and infarction; CEFERINO (obst ructive sleep apnea); Other screening mammogram; care home (curr ent) use of anticoagulants; Screening for c olon cancer Social History Tobacco Use Types Packs/Day Years [...] Sign Reading Time Taken Comments Blood Pressure 120/70 12/30/2014 8:48 AM CDT Pulse 63 12/30/2014 8:48 AM CDT Temperature 37 ??C (98.6 ??F) 12/30/2014 8:48 AM CDT Respiratory Rate - - Oxygen Saturation 94% 12/30/2014 8:48 AM CDT Inhaled Oxygen Concentration - - Weight 183.3 kg (404 lb 2 oz) 12/30/2014 8:48 AM CDT Height 167.6 cm (5' 6) 12/30/2014 8:48 AM CDT Body Mass Index 65.23 12/30/2014 8:48 AM CDT documented in this encounter Patient Instructions Patient InstructionsBee Hensley, BLAZE - 12/30/2014 7:30 AM CDT Preventive Health Recommendations Female Ages [...] a tetanus shot every 10 years. ??? Get a one-time shot to prevent pneumonia (Pneumovax). ??? Talk to your doctor about the shingles vaccine. ??? Talk to your doctor about the hepatitis B vaccine. Nutrition: ??? Eat at least 5 servings of fruits and vegetables each day. ??? Eat whole-grain bread, whole-wheat pasta and brown rice instead of white grains and rice. ??? For bone health: Eat calcium-rich foods or take calcium pills (500 to 600 mg) twice a day with food. Also take vitamin D (1000 IUs) each day. Lifestyle ??? Exercise at least 150 minutes [...] encounter Progress Notes Lucero Knox MD - 12/30/2014 7:30 AM CDT SUBJECTIVE: Charlette Brush is a 69 year old female who presents for Preventive Visit. Are you in the first 12 months of your Medicare coverage? No Healthy Habits: ?? Do you get at least three servings of calcium containing foods daily (dairy, green leafy vegetables, etc.)? yes ?? Amount of exercise or daily activities, outside of work: none at the moment ?? Problems taking medications regularly No ?? Medication side effects: No ?? Have you had an eye exam in the past two years? yes ?? Do you see a dentist twice per year? yes ?? Do you have sleep apnea, excessive snoring or daytime drowsiness?yes, pt uses CPAP COGNITIVE SCREEN 1) Repeat 3 items (Banana, [place], Chair) 2) Clock draw: NORMAL 3) 3 item recall: Recalls 3 objects Results: 3 items recalled: COGNITIVE IMPAIRMENT LESS LIKELY Mini-CogTM Copyright S Le. Licensed by the author for use in [facility]; reprintedwith permission (kameron@[facility]). All rights reserved. Other concerns to address: Pain in lower right pelvic area 1) pain intermittently in right pelvic area. She feels this is like previous groin strain. Started about 3 weeks ago. No particular injury that she is aware of. Is currently taking tylenol 1000mg 3-4x daily with some relief of pain. Pain does not wake her from sleep. Pain does not radiate, but she feels it changes her gait and her low back will hurt. Does not reliably trigger pain with particular activities, other than walking longer than typical for her. All Histories reviewed and updated in EPIC as appropriate. History Substance Use Topics ??? Smoking status: Never Smoker ??? Smokeless tobacco: Never Used ??? Alcohol Use: No The patient does not drink >3 drinks per day nor >7 drinks per week. Today's PHQ-2 Score: 0 Do you feel safe in your environment - Yes Do you have a Health Care Directive?: Yes: Advance Directive has been received and scanned. Current providers sharing in care for this patient include: Patient Care Team: Lucero Knox MD as PCP - General (Pediatrics) Chastity Montero MD as MD (Dermatology) ?? Hearing impairment: Yes, pt have hearing aids ?? Ability to successfully perform activities of daily living: Yes, no assistance needed ?? Fall risk: ?? Fall Risk Assessment completed per order. ?? Home safety: none identified The following health maintenance items are reviewed in Epic and correct as of today: Health Maintenance Topic Date Due ??? COLONOSCOPY Q10 YR INBASKET MESSAGE 02/12/2014 ??? TETANUS Q10 YR 08/27/2014 ??? OP ANNUAL INR REFERRAL 10/29/2014 ??? BMP Q1 YR (NO INBASKET) 12/23/2014 ??? MICROALBUMIN Q1 YEAR( NO INBASKET) 12/23/2014 ??? A1C Q1 YR (NO INBASKET) 12/23/2014 ??? FALL RISK ASSESSMENT 12/17/2014 ??? MEDICARE ANNUAL WELLNESS VISIT 12/24/2014 ??? MAMMO Q1 YR NO INBASKET MESSAGE 01/09/2015 ??? INFLUENZA VACCINE (SYSTEM ASSIGNED) 03/17/2015 ??? DEXA Q3 YR 12/14/2015 ??? LIPID MONITORING Q5 YEARS (NO INBASKET) 05/31/2016 ??? ADVANCE DIRECTIVE PLANNING Q5 YRS (NO INBASKET) 08/11/2016 ??? PNEUMOVAX ([facility] ASSIGNED) Completed Pneumonia Vaccine:Adults age 65+ who received Pneumovax (PPSV23) at 65 years or older: Should be given PCV13 > 1 year after their most recent PPSV23 Mammogram Screening: Patient over age 50, mutual decision to screen reflected in health maintenance. Hypertension Follow-up ?? Outpatient blood pressures are not checking. Results; N/A. ?? Diet: no added salt and low salt ROS: Constitutional, HEENT, cardiovascular, pulmonary, gi and gu systems are negative, except as otherwise noted. Problem list, Medication list, Allergies, and Medical/Social/Surgical histories reviewed in [facility] andupdated as appropriate. OBJECTIVE: BP 120/70 mmHg Pulse 63 Temp(Src) 98.6 ??F (37 ??C) (Tympanic) Ht 5' 6 (1.676 m) Wt 404 lb 2 oz (183.31 kg) BMI 65.26 kg/m2 SpO2 94% Estimated body mass index is 65.26 kg/(m^2) as calculated from the following: Height as of this encounter: 5' 6 (1.676 m). Weight as of this encounter: 404 lb 2 oz (183.31 kg). EXAM: GENERAL APPEARANCE: morbidly obese, alert and no distress EYES: Eyes grossly normal to inspection, PERRL and conjunctivae and sclerae normal HENT: ear canals and TM's normal, nose and mouth without ulcers or lesions, oropharynx clear and oral mucous membranes moist NECK: no adenopathy, no asymmetry, masses, or [...] peripheral edemaand peripheral pulses strong ABDOMEN: soft, NT. bowel sounds normal. Unable to assess HSM or masses due to body habitus. MS: no musculoskeletal defects are noted. Tender to palpation over right inguinal area. SKIN: no suspicious lesions or rashes NEURO: Normal strength and tone, sensory exam grossly normal, mentation intact and speech normal PSYCH: mentation appears normal and affect normal/bright ASSESSMENT / PLAN: (V70.0) Medicare annual wellness visit, initial (primary encounter diagnosis) -I reviewed morbidly obese bmi with patient, recommended diet and exercise changes based on bmi and current lifestyle/habits. 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 Plan: PNEUMOCOCCAL CONJ VACCINE 13 VALENT IM (PREVNAR 13), ADACEL (TDAP) 11-64 (719.45) Hip pain, right -will do trial of PT -no sign of intraabdominal cause for pain, although this is difficult to assess due to body habitus Plan: [facility] PT, HAND, AND CHIROPRACTIC REFERRAL (401.1) Essential hypertension, benign -bp at goal -monitor renal function with cmp -if renal function normal will not change dose of medications Plan: triamterene-hydrochlorothiazide (DYAZIDE) 37.5-25 MG per capsule, losartan (COZAAR) 100 MG tablet, atenolol (TENORMIN) 25 MG tablet, Comprehensive metabolic panel (278.01) Morbid obesity -pt in weight watchers, has lost 20 lbs, praised on weight loss Plan: Comprehensive metabolic panel (790.29) Pre-diabetes -discussed diet and exercise with patient -monitor with labs Plan: Hemoglobin A1c (268.9) Vitamin D deficiency Plan: Vitamin D Deficiency (415.19) Other pulmonary embolism and infarction -lifelong coumadin Plan: INR CLINIC REFERRAL (327.23) CEFERINO (obstructive sleep apnea) -wears cpap nightly (V76.12) Other screening mammogram Plan: MA Screening Digital Bilateral (V58.61) care home (current) use of anticoagulants Plan: INR CLINIC REFERRAL (V76.51) Screening for colon cancer Plan: GASTROENTEROLOGY ADULT REFERRAL +/- PROCEDURE End of Life Planning: Patient currently has an advanced directive: Yes. Practitioner is supportive of decision. COUNSELING: regular exercise healthy diet/nutrition vaccinated for: Pneumococcal and TDAP Estimated body mass index is 65.26 kg/(m^2) as calculated from the following: Height as of this encounter: 5' 6 (1.676 m). Weight as of this encounter: 404 lb 2 oz (183.31 kg). Weight management plan: Diet regimen was discussed and plan is Weight Watchers, TOPS, or similar program. reports that she has never smoked. She [...] been established and reviewed with the Patient. LUCERO KNOX MD [facility] documented in this encounter Nursing Notes Bee Hensley CMA - 12/30/2014 11:34 AM CDT Screening Questionnaire for Adult Immunization Are you sick today? No Do you have allergies to medications, food or any vaccine? Yes Have you ever had a serious reaction after receiving a vaccination? No Do you have a long-term health problem with heart disease, lung disease, asthma, kidney disease, diabetes, anemia, metabolic or blood disease? No Do you have cancer, leukemia, AIDS, or any immune system problem? No Do you take cortisone, prednisone, other steroids, or anticancer drugs, or have you had any x-ray (radiation) treatments? No Have you had a seizure, brain, or other nervous system problem? No During the past year, have you received a transfusion of blood or blood products, or been given a medicine called immune (gamma) globulin? No For women: Are you or is there a chance you could become during the next month? No Have you received any vaccinations in the past 4 weeks? No Immunization questionnaire answers were all negative. MNVFC doesn't apply on this patient Per orders of Dr. KNOX, injection of ADACEL AND PREVNAR 13 given by Bee Hensley. Patient instructed to remain in clinic for 20 minutes afterwards, and to report any adverse reaction to me immediately. Screening performed by Bee Hensley on 12/30/2014 at 11:34 AM. Bee Hensley CMA - 12/30/2014 8:51 AM CDT Chief Complaint Patient presents with ??? Wellness Visit Initial BP 120/70 mmHg Pulse 63 Temp(Src) 98.6 ??F (37 ??C) (Tympanic) Ht 5' 6 (1.676 m) Wt404 lb 2 oz (183.31 kg) BMI 65.26 kg/m2 SpO2 94% Estimated body mass index is 65.26 kg/(m^2) as calculated from the following: Height as of this encounter: 5' 6 (1.676 m). Weight as of this encounter: 404 lb 2 oz (183.31 kg). BP completed using cuff size: large-Radial BP taken Bee Hensley CMA documented in this encounter Plan of Treatment Upcoming Encounters Date Type Specialty Care Team Description 11/15/2022 Virtual Visit Pharm D Haylie Cheung, [facility] [address] [facility] [place] [address] (Wo rk) 11/15/2022 Virtual Visit IM/Yane Mathias MD [address] [facility] [place] [address] (Wo rk) 03/03/2023 Virtual Visit Neurology Erlinda Barber MD [address] [facility] [address] [place] [address] (Wo rk) Scheduled Referrals Name Type Priority Associated Diagnoses Order S chedule GASTROENTEROLOGY ADULT Referral Routine Screening for colo n Ordered: REFERRAL +/- PROCEDURE cancer 12/30 INR CLINIC REFERRAL Referral Routine Other pulmonary embol ism Ordered: and infarction 12/30/2014 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 HEMOGLOBIN A1C Routine 12/30/2014 9:51 AM Pre-diabetes Results for this CDT procedure are i n the results section. COMPREHENSIVE Routine 12/30/2014 9:51 AM Essential Results for this METABOLIC PANEL CDT hypertension, procedure a re in benign the results Morbid obesity (H) section. documented in this encounter Results Comprehensive metabolic panel (12/30/2014 9:51 AM CDT) athologist Signature Sodium 139 133 - 144 [place] mmol/L [facility] Potassium 4.2 3.4 - 5.3 [place] mmol/L [facility] Chloride 105 94 - 109 [place] mmol/L [facility] Carbon Dioxide 26 20 - 32 [place] mmol/L [facility] Anion Gap 8 3 - 14 [place] mmol/L [facility] Glucose 88 70 - 99 [place] mg/dL [facility] Urea Nitrogen 20 7 - 30 [place] mg/dL [facility] Creatinine 0.71 0.52 - [place] 1.04 mg/dL [facility] GFR Estimate 82 >60 [place] mL/min/1.7 [facility] m2 [facility] Comment: Non GFR Calc GFR Estimate If Black >90 >60 mL/min/1.7m2 F [facility] GFR Calc BLOO [facility] Calcium 9.3 8.5 - 10.1 mg/dL [place] [facility] ICS [facility] Bilirubin Total 0.8 0.2 - 1.3 mg/dL [facility] Albumin 3.6 3.4 - 5.0 g/dL [facility] S [facility] Protein Total 7.4 6.8 - 8.8 g/dL [place] [facility] Alkaline Phosphatase 92 40 - 150 U/L [facility] ALT 19 0 - 50 U/L [facility] AST 20 0 - 45 U/L [facility] Specimen Anatomical Collection Method Collection Time Receive d Time (Source) Location / / Volume Laterality Blood specimen 12/30/2014 9:51 AM 015 9:56 (specimen) CDT AM CDT Lucero Knox MD LAB - BLOOD ORDERABLES Performing Organization Address City/State/ZIP Code Phon e Number [facility] [address] [place] [address] Vitamin D Deficiency (12/30/2014 9:51 AM CDT) athologist Signature Vitamin D 63 30 - 75 [facility] Deficiency ug/L [place] [facility] Comment: Season, race, dietary intake, and treatm ent affect the concentration of 24-nkojldb-Reyiqia D. Values may decrea se during winter months and increase during summer months. Values less than 30 ug/L may indicate Vitamin D deficiency. Vitamin D determiniation is routinely p erformed by an immunoassay specific for 25 hydroxyvitamin D3. ??If an individua l is on vitamin D2 (ergocalciferol) supplementation, please specify 25 [place] v itamin D2 and D3 level determination by LCMSMS test VITD23. Specimen Anatomical Collection Method Collection Time Receive d Time (Source) Location / / Volume Laterality Blood specimen 12/30/2014 9:51 AM 015 9:56 (specimen) CDT AM CDT Lucero Knox MD LAB - BLOOD ORDERABLES Performing Organization Address City/State/ZIP Code Phon e Number [address] [address] [facility] Hemoglobin A1c (12/30/2014 9:51 AM CDT) athologist Signature Hemoglobin A1C 5.4 4.3 - 6.0 [facility] Specimen Anatomical Collection Method Collection Time Receive d Time (Source) Location / / Volume Laterality Blood specimen 12/30/2014 9:51 AM 015 9:56 (specimen) CDT AM CDT Lucero Knox MD LAB - BLOOD ORDERABLES Performing Organization Address City/[facility]/ZIP Code Phon e Number [facility] [address] [place] [address] documented in this encounter Visit Diagnoses Diagnosis Medicare annual wellness visit, initial - Primary Routine general medical examination at a health care facility Hip pain, right Pain in joint, pelvic region and thigh Essential hypertension, benign Morbid obesity (H) Morbid obesity Pre-diabetes Other abnormal glucose Vitamin D deficiency Unspecified vitamin D deficiency Other pulmonary embolism and infarction CEFERINO (obstructive sleep apnea) Obstructive sleep apnea (adult) (pediatr ic) Other screening mammogram 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
--- OUTSIDE RECORDS SUMMARY | 2022-06-15 13:20 | XMS_ITS | Encounter Summary ---
:1945 Author Organization [place] Address [address] [place] [address] Care Team Providers Name Role Phone Lucero Stevenson MD Primary Care Provider [phone] Chastity Montero MD Unavailable Reason for Visit Reason Comments Anticoagulation Encounter Details Date Type Department Care Team Description 12/04/2014 Allied Health/Nurse [facility] Eag an Anticoagulation Visit [address] [facility] [place] [id number] Social History Tobacco [...] encounter Progress Notes Qing Guy RN - 12/04/2014 10:19 AM CDT ANTICOAGULATION FOLLOW-UP CLINIC VISIT Patient Name: Charlette Brush Date: 12/04/2014 Contact Type: Face to Face SUBJECTIVE: Bleeding Signs/Symptoms: None Thromboembolic Signs/Symptoms: None Medication Changes: No Dietary Changes: No Bacterial/Viral Infection: No Missed Coumadin Doses: None Other Concerns: She has noticed that her knees and feet are more swollen. ASSESSMENT/PLAN: See: ANTICOAGULATION QIC flow sheet. INR Today: 4.0 New Warfarin Dose: hold today, then same 7.5mg MF, 10mg TWTSS = 65 Next INR in: 2 weeks Written instructions given to patient. ANTICOAGULATION CLINIC Qing Guy RN documented in this encounter Plan of Treatment Upcoming Encounters Date Type Specialty Care Team Description 11/15/2022 Virtual Visit Pharm Haylie Gonzalez, [facility] [address] [facility] [address] [place] [phone] (Lena max) 11/15/2022 Virtual Visit IM/Peds Yane Barraza MD [address] [facility] [place] [phone] (Lena max) 03/03/2023 Virtual Visit Neurology Erlinda Barber MD [address] [facility] [address] [place], [place] [id number] (Lena max) documented as of this encounter Procedures Procedure Name Priority Date/Time Associated Diagnosis Comme nts INR POINT OF CARE Routine 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 documented in this encounter Results (ABNORMAL) INR point of care (12/04/2014) P athologist Signature INR Point of 4.0 (A) 0.86 - [facility] 1.14 LAB Specimen (Source) Anatomical Location Collection Method / Collectio n Time Received Time / Laterality Volume 12/04/2014 Lucero Stevenson MD LAB - BLOOD ORDERABLES Performing Organization Address City/State/ZIP Code Phon e Number [facility] documented in this encounter Visit Diagnoses Diagnosis alf current use of anticoagulant t herapy - Primary documented in this encounter Care Teams Axle Polisher Relationship Specialty Start Date End Date Lucero Stevenson MD PCP - General Pediatrics 10/11/11 04/22/19 Chastity Montero MD MD Dermatology 09/23/[address] [place] [phone] documented as of this encounter
--- OUTSIDE RECORDS SUMMARY | 2022-06-15 13:20 | XMS_ITS | Encounter Summary ---
:1945 Author Organization [place] Address [address] [facility] [place] [address] Care Team Providers Name Role Phone Lucero Knox MD Primary Care Provider [phone] Chastity Montero MD Unavailable Reason for Visit Auth/Cert - Closed Specialty Diagnoses / Procedures Referred By Contact Refer red To Contact Gastroenterology Diagnoses screening Rh Endoscopy Procedures COLONOSCOPY [address] [place] [address] Phone: Fax: Referral ID Status Reason Start Date Expiration Date Visits Requ ested Visits Authorized [id number] Closed 1 1 Encounter Details Date Type Department Care Team Description 01/13/2015 Hospital Encounter [facility] Jose Juan Castaneda, PreOP/PostOP [address] [place], [place] GASTROINTESTINAL [id number] 91[facility] [phone] [place], [place] [address] (Wo rk) Social History Tobacco Use Types [...] 05/03/2021 organizations such as gnosticism groups, unions, fraInfiniu or athletic groups, or school groups? How [...] Sign Reading Time Taken Comments Blood Pressure 150/80 01/13/2015 2:51 PM CDT Pulse - - Temperature 37 ??C (98.6 ??F) 01/13/2015 2:08 PM CDT Respiratory Rate 20 01/13/2015 2:51 PM CDT Oxygen Saturation 99% 01/13/2015 2:40 PM CDT Inhaled Oxygen Concentration - - Weight 180.8 kg (398 lb 9.6 oz) 01/13/2015 12:21 PM CDT Height 167.6 cm (5' 5.98) 01/13/2015 12:21 PM CDT Body Mass Index 64.37 01/13/2015 12:21 PM CDT documented in this encounter Discharge Instructions Discharge InstructionsBruna Sharma RN - 01/13/2015 2:55 PM CDT Endoscopy sheets given and explained to patient and family, all questions answered. documented in this encounter Medications at Time of Discharge Medication Sig Dispensed Refills Start Date End Date cetirizine (ZYRTEC) 10 Take 10 mg by mouth 0 MG tablet 2 times daily acetaminophen (TYLENOL) Take 325 mg by mouth 0 03/17/2019 325 MG tablet daily as needed atenolol (TENORMIN) 25 Take 1 tablet (25 180 tablet 3 201401/01/2016 MG tabletIndications: mg) by mouth 2 times Essential hypertension, daily benign Cholecalciferol (VITAMIN Take 5,000 Units by 0 10/04/2021 D PO) mouth daily desoximetasone Apply 1 g topically 180 g 3 11/04/2013 0 10/28/2015 (TOPICORT) 0.05 % two times daily GELIndications: Dermatitis hydrocortisone 2.5 % Daily as needed 180 g 3 11/04/2013 01/01/2016 ointmentIndications: Dermatitis losartan (COZAAR) 100 MG Take 1 tablet (100 90 tablet 3 01/01/2016 tabletIndications: mg) by mouth daily Essential hypertension, benign omeprazole (PRILOSEC) 40 Take 1 capsule (40 90 capsule 2 08/18/2015 MG capsuleIndications: mg) by mouth daily Gastritis [...] Take 1 capsule by 90 capsule 3 12/1501/01/2016 hiazide (DYAZIDE) mouth every morning 37.5-25 MG per capsuleIndications: Essential hypertension, benign warfarin (COUMADIN) 10 Take 1 tablet (10 90 tablet 1 201403/24/2015 MG tabletIndications: mg) by mouth daily Other pulmonary embolism 10mg TWTSS or as and infarction, Long directed by INR term (current) use of clinic anticoagulants warfarin (COUMADIN) 7.5 7.5mg MF or as 90 tablet 1 10/31/19 15 03/24/2015 MG tabletIndications: directed by INR Other pulmonary embolism Clinic. and infarction documented as of this encounter H&P Notes Jose Juan Castaneda MD - 01/13/2015 12:52 PM CDT Pre-Endoscopy History and Physical Charlette Brush Date of : 1945 Age: [age] year old Date of Procedure: 01/13/2015 Primary care provider: Lucero Knox Type of Endoscopy: Colonoscopy with possible biopsy, possible polypectomy Reason for Procedure: screen Type of Anesthesia Anticipated: Conscious Sedation HPI: Charlette is a 70 year old female who will be undergoing the above procedure. A history and physical has been performed. The patient's medications and allergies have been reviewed. The risks and benefits of the procedure and the sedation options and risks were discussed with thepatient. All questions were answered and informed consent was obtained. She denies a personal or family history of anesthesia complications or bleeding disorders. Patient Active Problem List Diagnosis ??? Essential hypertension, benign ??? Other pulmonary embolism and infarction ??? Morbid obesity ??? Other lymphedema ??? CEFERINO (obstructive sleep apnea) ??? CARDIOVASCULAR SCREENING; LDL GOAL LESS THAN 130 ??? Dermatitis, stasis ??? Advanced directives, counseling/discussion ??? Health Snf ??? Binge eating ??? Eczema ??? Pre-diabetes ??? Vitamin d deficiency ??? custodial (current) use of anticoagulants ??? Hip pain, right Past Medical History Diagnosis Date ??? benign positional vertigo 09/08/2004 s/p canolith repositioning 07/21 ??? Other lymphedema 11/04/2003 ??? BENIGN HYPERTENSION 07/30/2003 ??? PULM EMBOLISM/INFARCT NOS 11/20/2001 ??? CEFERNIO (obstructive sleep apnea) nightly CPAP ??? GERD (gastroesophageal reflux disease) ??? Coagulation disorder Pulmonary embolism 2001 Past Surgical History Procedure Laterality Date ??? Cholecystectomy, open 1970 ? ? Tonsillectomy & adenoidectomy History Substance Use Topics ??? Smoking status: Never Smoker ??? Smokeless tobacco: Never Used ??? Alcohol Use: No Family History Problem Relation Age of Onset ??? C.A.D. Paternal Grandmother ??? Diabetes No family hx of ??? Cancer No family hx of No known family hx of skin cancer ??? Colon Cancer No family hx of ??? Hypertension Mother ??? Thyroid Disease Mother ??? Hypertension Sister ??? Cerebrovascular Accident Maternal Grandmother age 62 ??? Breast Cancer Paternal Aunt x3 ??? Prostate Cancer Father ??? Gastrointestinal Disorder Brother irritable bowel ??? Gastrointestinal Disorder Sister ciliac disease Prior to Admission medications Medication Sig Start Date End Date Taking? Authorizing Provider triamterene-hydrochlorothiazide (DYAZIDE) 37.5-25 MG per capsule Take 1 capsule by mouth every morning 12/30/14 Lucero Knox MD losartan (COZAAR) 100 MG tablet Take 1 tablet (100 mg) by mouth daily 12/30/14 Lucero Knox MD atenolol (TENORMIN) 25 MG tablet Take 1 tablet (25 mg) by mouth 2 times daily 12/30/14 Lucero Knox MD warfarin (COUMADIN) 7.5 MG tablet 7.5mg MF or as directed by INR Clinic. 10/30/14 Lucero Knox MD warfarin (COUMADIN) 10 MG tablet Take 1 tablet (10 mg) by mouth daily 10mg TWTSS or as directed by INR clinic 10/30/14 Lucero Knox MD omeprazole (PRILOSEC) 40 MG capsule Take 1 capsule (40 mg) by mouth daily Take 30-60 minutes before a meal. 10/06/14 Lucero Knox MD ORDER FOR DME Equipment being ordered: CPAP mask Please dispense- Comfort gel blue nasal mask with HGR,DOM-Size Small Patient's machine is a Respironics by [employer] Star Auto A-Flex System 1. 01/03/14 Lucero Knox MD desoximetasone (TOPICORT) 0.05 % GEL Apply 1 g topically two times daily 11/04/13 Chastity Montero MD hydrocortisone 2.5 % ointment Daily as needed 11/04/13 Chastity Montero MD ORDER FOR DME daily Auto-CPAP: Max 11 cm H2O, Min 11cm H2O Continuous, Lifetime need and heated humidity. 08/26/13 Ady Ramos MD Cholecalciferol (VITAMIN D PO) Take 10,000 Units by mouth. Reported, Patient cetirizine (ZYRTEC) 10 MG tablet Take 10 mg by mouth 2 times daily Reported, Patient acetaminophen (TYLENOL) 325 MG tablet Take by mouth daily Dummy, Bfp User Allergies Allergen Reactions ??? Cephalexin Hives Keflex - hives ??? Lanolin Other (See Comments) skin irritation ??? Lisinopril cough ??? Neomycin Other (See Comments) skin irritation ??? Penicillins Hives ??? Bactroban [Mupirocin Calcium] Rash REVIEW OF SYSTEMS: 5 point ROS negative except as noted above in HPI, including Gen., Resp., CV, GI & system review. PHYSICAL EXAM: BP 150/80 mmHg Temp(Src) 97.7 ??F (36.5 ??C) (Temporal) Resp 22 Ht 1.676 m (5' 5.98) Wt 180.804 kg (398 lb 9.6 oz) BMI 64.37 kg/m2 SpO2 93% Estimated body mass index is 64.37 kg/(m^2) as calculated from the following: Height as of this encounter: 1.676 m (5' 5.98). Weight as of this encounter: 180.804 kg (398 lb 9.6 oz). GENERAL APPEARANCE: alert, and oriented MENTAL STATUS: alert AIRWAY EXAM: Mallampatti Class II (visualization of the soft palate, fauces, and uvula) RESP: lungs clear to auscultation - no rales, rhonchi or wheezes CV: regular rates and rhythm DIAGNOSTICS: Not indicated IMPRESSION ASA Class 2 - Mild systemic disease PLAN: Plan for Colonoscopy with possible biopsy, possible polypectomy. We discussed the risks, benefits and alternatives and the patient wished to proceed. The above has been forwarded to the consulting provider. Signed Electronically by: Jose Juan Castaneda MD January 13, 2015 Leyla Rm - 01/12/2015 10:30 AM CDT This note is for the purpose of making the H&P performed in clinic within the last 30 days available in the hospital surgical encounter. Source Note - Lucero Knox MD - 12/30/2014 7:30 AM [...] COGNITIVE SCREEN 1) Repeat 3 items (Banana, [place], Chair) 2) Clock draw: NORMAL 3) 3 item recall: Recalls 3 objects Results: 3 items recalled: COGNITIVE IMPAIRMENT LESS LIKELY Mini-CogTM Copyright S Le. Licensed by the author for use in [facility] [employer]; reprintedwith permission (kameron@[email or web address]). All rights reserved. Other concerns to address: [...] her. All Histories reviewed and updated in [facility] as appropriate. History Substance Use Topics [...] following health maintenance items are reviewed in [facility] and correct as of today: Health Maintenance Topic Date Due ??? [facility] ??? TETANUS Q10 YR 08/27/2014 [...] list, Allergies, and Medical/Social/Surgical histories reviewed in [facility] andupdated as appropriate. OBJECTIVE: BP 120/70 mmHg [...] the chart -we discussed safety and patients penitentiary health risks. 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 LUCERO KNOX MD [facility] documented in this encounter Nursing Notes Prudence Velazquez RN - 01/13/2015 12:56 PM CDT INR done on 01/12/15 = 1.5. Dr. Leonel MD updated and aware. Do not need to repeat today. - Analilia Escudero RN (Endo.)/Prudence Velazquez RN Nicole Hummel RN - 01/02/2015 12:22 PM CDT Doctor Sherif's note said barium enema and repeat colonoscopy in 10 years if it was normal. 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 Patient needed a virtual colonoscopy afterwards. That was in 2003. documented in this encounter Plan of Treatment Upcoming Encounters Date Type Specialty Care Team Description 11/15/2022 Virtual Visit Pharm Haylie Gonzalez, [facility] [address] [facility] [place] [address] (Wo rk) 11/15/2022 Virtual Visit [place] [address] [place] [address] [place] [address] (Wo rk) 03/03/2023 Virtual Visit Neurology Erlinda Barber MD [address] [facility] [address] [place] [address] (Wo rk) documented as of this encounter Procedures Procedure Name Priority Date/Time Associated Diagnosis Comme nts COLONOSCOPY 01/13/2015 1:20 PM CDT screen Special Needs Ref: Schmitz5'6/404 lbs., B LA 65 per H&POSA, uses CPAP COLONOSCOPY Routine 01/13/2015 1:05 PM CDT Resul ts for this procedure are in the results sec tion. GLUCOSE BY METER Routine 01/13/2015 12:32 PM CDT Results for this procedure are in the results sec tion. documented in this encounter Results COLONOSCOPY (01/13/2015 1:05 PM CDT) [facility] Method Time Signature COLONOSCOPY [facility] RAD IOLOGY RESULTS Patient Name: Charlette Brush ?Proc edure Date: 01/13/2015 1:05 PM ? Accou nt Number: [id number] Date of : 1945 ?Admit Type: Out patient Age: 70 ? Gender: Female Attending MD: Jose Juan Castaneda MD ?Instrument Name: C-1 21 Procedure: ?Colonoscopy Indications: ?Screening for colorec laura malignant neoplasm Providers: ?Jose Juan Castaneda MD, Renee Linares RN (Nurse), ?Aliza Escudero RN (Miguel se) Referring : ? Medicines: ?Propofol per Anesthesia Complications: ?No immediate complications. Procedure: ?Pre-Anesthesia Assessment: ?- Prior to the procedure, a History and Physical ?was performed, and patient medications and ?allergies were reviewed. The patient is competent. ?The risks and benefits of the procedure and the ?sedation options and risks were discussed with the ?patient. All questions were answered and informed ?consent was obtained. Patient identification and ?proposed procedure were verified by the physician ?in the procedure room. Mental Status Examination: ?alert and oriented. Airway Examination: normal ?oropharyngeal airway and neck mobility. Respiratory ?Examination: clear to auscultation. CV Examination: ?normal. Prophylactic Antibiotics: The patient does ?not require prophylactic antibiotics. Prior ?Anticoagulants: The patient has taken no previous ?anticoagulant or antiplatelet agents. ASA Grade ?Assessment: II - A patient with mild systemic ?disease. After reviewing the risks and benefits, ?the patient was deemed in satisfactory condition to ?undergo the procedure. The anesthesia plan was to ?use moderate sedation / analgesia (conscious ?sedation). Immediately prior to administration of ?medications, the patient was re-assessed for ?adequacy to receive sedatives. The heart rate, ?respiratory rate, oxygen saturations, blood ?pressure, adequacy of pulmonary ventilation, and ?response to care were monitored throughout the ?procedure. The physical status of the patient was ?re-assessed after the procedure. ?After obtaining informed consent, the colonoscope ?was passed under direct vision. Throughout the ?procedure, the patient's blood pressure, pulse, and ?oxygen saturations were monitored continuously. The ?-[id number] was introduced through the anus ?and advanced to the cecum, identified by ?appendiceal orifice and ileocecal valve. The ?colonoscopy was performed without difficulty. The ?patient tolerated the procedure well. The quality ?of the bowel preparat ion was good. ? Findings: ? The perianal and digital rectal examinations were nor mal. ? The entire examined colon appeared normal on direct and retroflexion ? views. ? Impression: ? - The entire examined colon is normal on direct and ?retroflexion views. Recommendation: ? - Repeat colonosc opy in 10 years for screening ?purposes. ? Procedure Code(s): ? --- Professional --- ? G0121, Colorectal cancer screening; colonoscopy on in dividual not ? meeting criteria for high risk Diagnosis Code(s): ? --- Professional --- ? V76.51, Special screening for malignant neoplasms of colon CPT copyright 2013 [employer]. All rights reserved. The codes documented in this report are prelimin joe and upon novelty chain maker review may be revised to meet current compliance requirements. Electronically signed by Jose Juan Castaneda MD Jose Juan Castaneda MD 01/13/2015 2:13 PM I was physically present for the entire viewing portion of t he exam. Number of Addenda: 0 Note Initiated On: 01/13/2015 1:05 PM MRN: [id number] Procedure Date: ? 01/13/2015 1:05:10 PM Scope Withdrawal Time: 0 hours 5 minutes 32 seconds Total Procedure Duration: 0 hours 9 minutes 57 seconds Scope In: 1:48:10 PM Scope Out: 1:58:07 PM Specimen (Source) Anatomical Collection Method Collection Time Re ceived Time Location / / Volume Laterality 01/13/2015 1:05 PM CDT Jose Juan Castaneda MD PROCEDURES Performing Organization Address City/State/ZIP Code Phon e Number RADIOLOGY RESULTS Glucose by meter (01/13/2015 12:32 PM CDT) P athologist Signature Glucose 98 70 - 99 POINT OF CARE mg/dL TEST, GLUCOSE Specimen Anatomical Collection Method Collection Time Receive d Time (Source) Location / / Volume Laterality 01/13/2015 12:32 01/13/2015 PM CDT 12:35 PM CDT Jose Juan Castaneda MD LAB - BEAKER POCT Performing Organization Address City/[facility] Phon e Number FV POINT OF CARE TEST, GLUCOSE POINT OF CARE TEST, GLUCOSE documented in this encounter Visit Diagnoses Not on filedocumented in this encounter Active and Recently Administered Medications Times are shown in CDT. Continuous Medication Order 01/11/2015 01/12/2015 01/13/2015 lactated ringers infusion (CANCELED) 1329 (New Bag - Provider: Nabor Balderas APRN DOUBLE END TENON OPERATOR)1358 (Anesthesia Volume Adjustment - Provider: Nabor Balderas APRN DOUBLE END TENON OPERATOR) at 75-100 mL/hr, Intravenous, CONTINUOUS , UNLESS otherwise indicated., Pre- procedure, Starting 01/13/15 at 1300, Until 01/13/15 at 1408 documented in this encounter Care Teams Brand Lead Relationship Specialty Start Date End Date Lucero Knox MD PCP - General Pediatrics 10/11/11 04/22/19 Chastity Montero MD MD Dermatology 09/23/[address] [place] [address] [address] [place] [address] documented as of this encounter
--- OUTSIDE RECORDS SUMMARY | 2022-06-15 13:20 | XMS_ITS | Encounter Summary ---
:1945 Author Organization [facility] Address [address] [place] [address]. [place] [address] Care Team Providers Name Role Phone Lucero Stevenson MD Primary Care Provider [phone] Chastity Montero MD Unavailable [phone] Reason for Visit Reason Comments Derm Problem Charlette returns for a chronic ulcer on lower back reports improvment since last visit. Encounter Details Date Type Department Care Team Description 12/23/2014 Office Visit Dermatology Chastity Montero Venous stasis dermatitis of both lower extremities (Primary Dx); 5th Floor, Clinic 5A MD Martha Skin ulcer (H) Roland Dickens [address] [facility] 98 516 [facility] 88 [address] [place], [place] [phone] (Work) [phone] Social History Tobacco Use Types Packs/Day Years [...] documented as of this encounter Progress Notes Ivelisse Corrales MD - 12/23/2014 10:40 AM CDT CHIEF COMPLAINT: Followup for ulcers on the back. DERMATOLOGY PROBLEM LIST: 1. Nummular stasis dermatitis. 2. Multiple contact allergies. Status post patch testing with multiple allergens. 3. Left lower back ulceration since 08/2012. 4. Lymphedema with sequelae: stasis dermatitis with lichenification HISTORY OF PRESENT ILLNESS: Charlette is a 69-year-old female who presents to clinic for followup from 11/10/2014. She did have 2 biopsies, one of the forehead, one of the ulcer in 10/2013. Forehead showed fibrous papule and the ulceration showed prior trauma. No concerns for carcinoma. She states she has been doing much better since the last visit, she had attempted to wear lower rise shorts so that the waistband does not irritate the area. She continues to not apply any topicals to the area due to her multiple contact allergens. She also has a history of venous stasis and has been seen by the Lymphedema Clinic. She states that her forehead near the biopsy site since the forehead biopsy had twinges which lasts a few seconds. She is wondering what these could be. There is no other change in her history. She is excited for her sister to visit from [place] today. REVIEW OF SYSTEMS: She is otherwise well and has no other skin complaints. PHYSICAL EXAMINATION: GENERAL: Charlette is an obese female. She is in no acute distress. She is very cooperative with the entire exam. SKIN: A limited skin exam of the face, neck, back and lower extremities reveals the followin. Skin Andre type I. 2. On her back she has 3 slightly atrophic pink patches. Lateral to this she has 1 annular pink papule with a central hemorrhagic crust. No superficial erosions or ulcerations. 3. Her forehead has an annular light pink 3 mm macule. 4. Circumferentially around her bilateral lower extremities she has lichenified skin with flesh-colored, firm papules ASSESSMENT AND PLAN: 1. Fibrous papule of the right forehead removed via shave biopsy in early 10/2014. We discussed the process of scar remodeling and the fact that nerve fibers may be resulting in her twinges . Scar remodeling can lead to an odd sensation and the scar should become completely remodel in about 1 year.She was instructed to mention this to her PCP as she has an upcoming appointment. 2. Severe contact allergic dermatitis. No active disease today. 3. Trauma with ulcerations of the back. She has greatly improved today in comparison of photos from the last visit. We also took photos to place in the chart today. We recommended that she switch to wearing skirts so that the waistline is not tight around the area to cause new lesions and breakdown. 4. Stasis dermatitis with lichenification. She has already been seen by the Lymphedema Clinic. She is unable to wear compression stockings. We will follow clinically for now. 5. Since she is doing so well we will follow her up in 6 months. If she does have any new lesions, any concern for infection, we are happy to see her earlier. This dictation was edited by me, Ivelisse Corrales MD Dermatology Resident PGY-2 .I was present for yancey portions of the history and exam. See resident note for pertinent history, exam, and treatment plan. Chastity Montero MD documented in this encounter Nursing Notes Sagrario Hernandez LPN - 12/23/2014 10:03 AM CDT Chief Complaint Patient presents with ??? Derm Problem Charlette returns for a chronic ulcer on lower back reports improvment since last visit. Sagrario Hernandez LPN documented in this encounter Plan of Treatment Upcoming Encounters Date Type Specialty Care Team Description 11/15/2022 Virtual Visit Haylie Wakefield, [facility] [address] [place] [place] [address] (Wo rk) 11/15/2022 Virtual Visit IM/Peds Yane Barraza MD [address] [facility] [place] [address] (Wo rk) 03/03/2023 Virtual Visit Neurology Erlinda Barber MD 420 [facility] 295 [place] [address] (Wo rk) documented as of this encounter Visit Diagnoses Diagnosis Venous stasis dermatitis of both lower e xtremities - Primary Skin ulcer (H) Chronic ulcer of unspecified site documented in this encounter Care Teams Web Operations Lead Relationship Specialty Start Date End Date Lucero Stevenson MD PCP - General Pediatrics 10/11/11 04/22/19 Chastity Montero MD MD Dermatology 09/23/14 [address] [facility] 98 [place], [place] [phone] documented as of this encounter
--- OUTSIDE RECORDS SUMMARY | 2022-06-15 13:20 | XMS_ITS | Encounter Summary ---
:1945 Author Organization [facility] Address [address] [place] [address] Care Team Providers Name Role Phone Lucero Stevenson MD Primary Care Provider [phone] Chastity Montero MD Unavailable [phone] Reason for Visit Reason Comments Anticoagulation Encounter Details Date Type Department Care Team Description 12/18/2014 [facility] Eag an Anticoagulation Visit [address] [facility] [place] [address] Social History [...] encounter Progress Notes Qing Guy RN - 12/18/2014 10:08 AM CDT ANTICOAGULATION FOLLOW-UP CLINIC VISIT Patient Name: Charlette Brush Date: 12/18/2014 Contact Type: Face to Face SUBJECTIVE: Bleeding Signs/Symptoms: None Thromboembolic Signs/Symptoms: None Medication Changes: No Dietary Changes: No Bacterial/Viral Infection: No Missed Coumadin Doses: None Other Concerns: No ASSESSMENT/PLAN: See: ANTICOAGULATION QIC flow sheet. INR Today: 2.9 New Warfarin Dose: same, 7.5mg MF, 10mg TWTSS = 65 Next INR in: 5 weeks Written instructions given to patient. [facility] ANTICOAGULATION CLINIC Qing Gyu RN documented in this encounter Plan of Treatment Upcoming Encounters Date Type Specialty Care Team Description 11/15/2022 Virtual Visit Pharm Haylie Gonzalez, [facility] [address] [place], [place] [phone] (Wo rk) 11/15/2022 Virtual Visit IM/Peds Yane Barraza MD [address] [facility] [address] [facility] [address] [place] [phone] (Wo rk) 03/03/2023 Virtual Visit Neurology Erlinda Barber MD 420 [facility] 295 [place], [place] [phone] (Wo rk) documented as of this encounter Procedures Procedure Name Priority Date/Time Associated Diagnosis Comme nts INR POINT OF CARE Routine 12/18/2014 [facility]iary 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 documented in this encounter Results INR point of care (12/18/2014) P athologist Signature INR Point of 2.9 0.86 - [facility] Care 1.14 LAB Specimen (Source) Anatomical Location Collection Method / Collectio n Time Received Time / Laterality Volume 12/18/2014 Lucero Stevenson MD LAB - BLOOD ORDERABLES Performing Organization Address City/State/ZIP Code Phon e Number [facility] documented in this encounter Visit Diagnoses Diagnosis penitentiary current use of anticoagulant t herapy - Primary documented in this encounter Care Teams Public Policy Coordinator Relationship Specialty Start Date End Date Lucero Stevenson MD PCP - General Pediatrics 10/11/11 04/22/19 Chastity Montero MD MD Dermatology 09/23/[address] [place] [id number] documented as of this encounter
--- OUTSIDE RECORDS SUMMARY | 2022-06-15 13:20 | XMS_ITS | Encounter Summary ---
:1945 Author Organization [facility] Address [address] [facility] [place] [address] Care Team Providers Name Role Phone Lucero Knox MD Primary Care Provider Chastity Montero MD Unavailable Reason for Visit Auth/Cert - Closed Specialty Diagnoses / Procedures Referred By Contact Refer red To Contact Gastroenterology Diagnoses screening Rh Endoscopy Procedures COLONOSCOPY [address] [place] [address] Phone: Fax: Referral ID Status Reason Start Date Expiration Date Visits Requ ested Visits Authorized [id number] Closed 1 1 Encounter Details Date Type Department Care Team Description 01/13/2015 Surgery [facility] Jose Juan Castaneda, COLONOSCOPY (fv) [place], [place], PeriOp Services 01/02 *Needs INR check* - [address] See Notes before [place], [place] GASTROINTESTINAL pre-call [phone] [phone] [place], [place] [phone] Surgery Details Date/Time Status Location OR Service Patient Case Case Traum a Class Class Type Case? 01/13/15 1:25 Posted OR OR Gastroenterology Same Day PM Surgery Panel 1 Procedure LRB Anes Op Region Wound Class Commen ts COLONOSCOPY (fv) PS, N/A MAC Rectum II-Clean Contam inated COLONOSCOPY (fv) NC, 01/02 *Needs INR PS, N C, 01/02 check* - See Notes *Needs INR check* before pre-call - See Not es before pre-call Surgeon Surgeon Role Service Panel Jose Juan Castaneda MD Primary Gastroenterology 1 Special Needs Ref: Schmitz5' lbs., BMI 65 per H& POSA, uses CPAP documented in this encounter Social History Tobacco [...] Time Taken Comments Blood Pressure 150/80 01/13/2015 12:25 PM CDT Pulse - - Temperature 37 ??C (98.6 ??F) 01/13/2015 2:08 PM CDT Respiratory Rate 22 01/13/2015 12:25 PM CDT Oxygen Saturation 99% 01/13/2015 2:25 PM CDT Inhaled Oxygen Concentration - - Weight 180.8 kg (398 lb 9.6 oz) 01/13/2015 12:21 PM CDT Height 167.6 cm (5' 5.98) 01/13/2015 12:21 PM CDT Body Mass Index 64.37 01/13/2015 12:21 PM CDT documented in this encounter Discharge Instructions Discharge Bruna Lazaro RN - 01/13/2015 2:55 PM CDT Endoscopy [...] machine is a Respi ronics by [employer], [facility] Star Auto A-Flex System 1. ORDER [...] stasis ??? Advanced directives, counseling/discussion ??? Health Jail ??? Binge eating ??? Eczema ??? Pre-diabetes ??? Vitamin d deficiency ??? FPC (current) use of anticoagulants ??? Hip pain, [...] Patient's machine is a Respironics by [employer], [employer] Star Auto A-Flex System 1. 01/03/14 Lucero Knox MD desoximetasone (TOPICORT) 0.05 % GEL Apply 1 g topically two times daily 11/04/13 Chastity Montero MD hydrocortisone 2.5 % ointment Daily as needed 11/04/13 Chastity Montero MD ORDER FOR DME daily Auto-CPAP: Max 11 cm H2O, Min 11cm H2O Continuous, Lifetime need and heated humidity. 08/26/13 Ady aRmos MD Cholecalciferol (VITAMIN D PO) Take 10,000 [...] COGNITIVE SCREEN 1) Repeat 3 items (Banana, Sarles, Chair) 2) Clock draw: NORMAL 3) 3 item recall: Recalls 3 objects Results: 3 items recalled: COGNITIVE IMPAIRMENT LESS LIKELY Mini-CogTM Copyright Bruce Lujan. Licensed by the author for use in [facility]; reprintedwith permission (soob@[facility]). All rights reserved. Other concerns to [...] her. All Histories reviewed and updated in [facility] as appropriate. History Substance Use Topics [...] list, Allergies, and Medical/Social/Surgical histories reviewed in [facility] andupdated as appropriate. 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 LUCERO KNOX MD [facility]3]AN documented in this encounter Nursing Notes Prudence [...] - 01/02/2015 12:19 PM CDT Patient informed medical scheduler that she has a long colon and the doctor couldn't finish procedure. Patient needed a virtual colonoscopy afterwards. That was in 2003. documented in this encounter Plan of Treatment Upcoming Encounters Date Type Specialty Care Team Description 11/15/2022 Virtual Visit Pharm Haylie Gonzalez, [facility] [address] [facility] [place] [address] (Wo winter) 11/15/2022 Virtual [place] [address] [place] [address] [place] [address] (Wo winter) 03/03/2023 Virtual Visit Neurology Erlinda Barber MD 420 [facility] 295 [place] [address] (Wo winter) documented as of this encounter Procedures Procedure Name Priority Date/Time Associated Diagnosis Comme nts COLONOSCOPY 01/13/2015 1:20 PM CDT screen Special Needs Ref: Schmitz5'6/404 lbs., B SC 65 per H&POSA, uses CPAP COLONOSCOPY Routine 01/13/2015 1:05 PM CDT Resul ts for this procedure are in the results sec tion. GLUCOSE BY METER Routine 01/13/2015 12:32 PM CDT Results for this procedure are in the results sec tion. documented in this encounter Results COLONOSCOPY (01/13/2015 1:05 PM CDT) [facility] Method Time Signature COLONOSCOPY [facility] RAD IOLOGY RESULTS Patient Name: Charlette Brush ?Proc edure Date: 01/13/2015 1:05 PM ? Accou nt Number: [id number] Date of : 1945 ?Admit Type: Out patient Age: 70 ? Gender: Female Attending MD: Jose Juan Castaneda MD ?Instrument Name: C-1 21 Procedure: ?Colonoscopy Indications: ?Screening for colorec laura malignant neoplasm Providers: ?Jose Juan Castaneda MD, Renee Linares RN (Nurse), ?Aliza Escudero RN (Miguel se) Referring MD: ? Medicines: ?Propofol per Anesthesia Complications: ?No [...] and ?oxygen saturations were monitored continuously. The ?[id number] was introduced through the anus ?and advanced [...] malignant neoplasms of colon CPT copyright 2013 [employer]. All rights reserved. The codes documented in this report are prelimin joe and upon scheme technician review may be revised to meet current compliance requirements. Electronically signed by Jose Juan Castaneda MD Jose Juan Castaneda MD 01/13/2015 2:13 PM I was physically present for the entire viewing portion of t he exam. Number of Addenda: 0 Note Initiated On: 01/13/2015 1:05 PM MRN: ?[id number] Procedure Date: ? 01/13/2015 1:05:10 PM Scope [...] 12:35 PM CDT Jose Juan Castaneda MD [facility] POCT Performing Organization Address City/State/ZIP Code Phon e Number FV POINT OF CARE TEST, GLUCOSE POINT OF CARE TEST, GLUCOSE documented in this encounter Visit Diagnoses Not on filedocumented in this encounter Active and Recently Administered Medications Times are shown in CDT. Continuous Medication Order 01/11/2015 01/12/2015 01/13/2015 lactated ringers infusion (CANCELED) 1329 (New Bag - Provider: Nabor Balderas APRN PIE CRUST MIXER)1358 (Anesthesia Volume Adjustment - Provider: Nabor Balderas APRN CRNA) at 75-100 mL/hr, Intravenous, CONTINUOUS , UNLESS otherwise indicated., Pre- procedure, Starting 01/13/15 at 1300, Until 01/13/15 at 1408 documented in this encounter Care Teams Risk Investigator Relationship Specialty Start Date End Date Lucero Knox MD PCP - General Pediatrics 10/11/11 04/22/19 Chastity Montero MD MD Dermatology 09/23/[address] [place] [address] 98 [place] [address] documented as of this encounter
--- OUTSIDE RECORDS SUMMARY | 2022-06-15 13:20 | XMS_ITS | Encounter Summary ---
:1945 Author Organization [facility] Address [address] [place] [address] Care Team Providers Name Role Phone Lucero Stevenson MD Primary Care Provider [phone] Chastity Montero MD Unavailable [phone] Reason for Visit Reason Comments RECHECK 2 week follow up Encounter Details Date Type Department Care Team Description 11/10/2014 Office Visit Dermatology Chastity Montero Ulcer (H) (Primary 5th Floor, Clinic 5A MD Martha Dx) Roland Wangensteen 420 [facility] 98 516 [facility] 88 [address] [place], [place] [phone] [address] (Work) [phone] Social History Tobacco Use Types Packs/Day Years [...] Sign Reading Time Taken Comments Blood Pressure 177/76 11/10/2014 10:06 AM CDT Pulse 35 11/10/2014 10:06 AM CDT Temperature - - Respiratory Rate - - Oxygen Saturation - - Inhaled Oxygen Concentration - - Weight 187.8 kg (414 lb) 11/10/2014 10:06 AM CDT Height 167.6 cm (5' 6) 11/10/2014 10:06 AM CDT Body Mass Index 66.82 11/10/2014 10:06 AM CDT documented in this encounter Progress Notes Chastity Montero MD - 11/10/2014 10:46 AM CDT CHIEF COMPLAINT: Ulcers of back. HISTORY OF PRESENT ILLNESS: The patient is a 69-year-old female well known to me who returns today for followup of recurrent ulcerations of the back area, last seen by myself 10/27/2014. Because this had been an ongoing process, sometimes superinfected with staph, we did perform a biopsy. The biopsy did not show anything concerning, just evidence of prior trauma. She also had a nonhealing papule of her right forehead. A biopsy was performed at the same time; it did show a fibrous papule. The patientreturns today for followup. She continues to do well. We have seen her for severe dermatitis in the past. She has really significant contact allergens. She is doing good avoidance behavior and has not had any significant flares of her dermatitis or itch. PHYSICAL EXAMINATION: The patient is a well-appearing female in no acute distress. Please note the nursing note for vital signs; they are stable. Face and back are examined today. The biopsy site of the forehead has healed well. There is no evidence of recurrence within that area. Examination of the back today reveals a still open biopsy site with minimal erythema. There is scattered erythema and scars of the other parts of her lower back but no other open erosions today. ASSESSMENT AND PLAN: 1. Fibrous papule of right forehead. Discussed the benign diagnosis, no further treatment needed. 2. Severe allergic contact dermatitis. No active disease today, good avoidance behavior. 3. Trauma with ulcerations of back. We discussed ways to avoid trauma of this area including avoiding any pressure-based waistbands. She will try to switch to dresses and wear underwear that does not hit this area. We will give time for the ulceration of her back to heal. She will continue to apply Vaseline to the area and I will see her back in 6 weeks. documented in this encounter Nursing Notes Kalyn Wheeler - 11/10/2014 10:09 AM CDT Chief Complaint Patient presents with ??? RECHECK 2 week follow up Filed Vitals: 11/10/14 1006 BP: 177/76 Pulse: 35 Height: 1.676 m (5' 6) Weight: 187.789 kg (414 lb) Body mass index is 66.85 kg/(m^2). Kalyn Wheeler MA Student documented in this encounter Plan of Treatment Upcoming Encounters Date Type Specialty Care Team Description 11/15/2022 Virtual Visit Pharm Haylie Gonzalez, [facility] [address] [facility] [place] [phone] (Wo rk) 11/15/2022 Virtual Visit IM/Peds Yane Barraza MD [address] [facility] [place] [phone] (Wo rk) 03/03/2023 Virtual Visit Neurology Erlinda Barber MD 420 [facility] 295 [place], [place] [phone] (Wo rk) documented as of this encounter Visit Diagnoses Diagnosis Ulcer - Primary Chronic ulcer of unspecified site documented in this encounter Care Teams Manager Environmental Health Relationship Specialty Start Date End Date Lucero Stevenson MD PCP - General Pediatrics 10/11/11 04/22/19 Chastity Montero MD MD Dermatology 09/23/[address] [place] [address] 98 [place] [address] documented as of this encounter
--- OUTSIDE RECORDS SUMMARY | 2022-06-15 13:20 | XMS_ITS | Encounter Summary ---
:1945 Author Organization [facility] Address [address] [place] [address] Care Team Providers Name Role Phone Lucero Stevenson MD Primary Care Provider [phone] Chastity Montero MD Unavailable [phone] Reason for Visit Reason Comments Anticoagulation Encounter Details Date Type Department Care Team Description 01/12/2015 Allied [facility]urse [facility] Eag an Anticoagulation Visit [address] [facility] [place] [address] Social History Tobacco [...] this encounter Progress Notes Susie Murphy - 01/12/2015 2:42 PM CDT ANTICOAGULATION FOLLOW-UP CLINIC VISIT Patient Name: Charlette Brush Date: 01/12/2015 Contact Type: Face to Face SUBJECTIVE: Bleeding Signs/Symptoms: None Thromboembolic Signs/Symptoms: None Medication Changes: No Dietary Changes: No Bacterial/Viral Infection: No Missed Coumadin Doses: Intentional hold for colonoscopy 01-13-15. Stopped warfarin 01-08-15 Other Concerns: No ASSESSMENT/PLAN: See: ANTICOAGULATION QIC flow sheet. MEDICATION MANAGEMENT: Education Provided: Resume warfarin at usual dosing after colonoscopy tomorrow. 7.5mg MF, 10mg TWTSS and recheck INR 15 Dosage adjustment made based on physician directed care plan. ANTICOAGULATION CLINIC Susie Murphy RN documented in this encounter Plan of Treatment Upcoming Encounters Date Type Specialty Care Team Description 11/15/2022 Virtual Visit Pharm Haylie Gonzalez, [facility] [address] [facility] [address] [place] [phone] (Lena max) 11/15/2022 Virtual Visit IM/PedYane Muir MD [address] [facility] [place] [phone] (Lena max) 03/03/2023 Virtual Visit Neurology Erlinda Barber MD 420 [facility] 295 [place], [place] [phone] (Lena max) documented as of this encounter Procedures Procedure Name Priority Date/Time Associated Diagnosis Comme nts INR POINT OF CARE Routine 01/12/2015 [facility] 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 documented in this encounter Results (ABNORMAL) INR point of care (01/12/2015) P athologist Signature INR Point of 1.5 (A) 0.86 - [facility] Care 1.14 LAB Specimen (Source) Anatomical Location Collection Method / Collectio n Time Received Time / Laterality Volume 01/12/2015 Lucero Stevenson MD LAB - BLOOD ORDERABLES Performing Organization Address City/State/ZIP Code Phon e Number [facility] documented in this encounter Visit Diagnoses Diagnosis [facility] current use of anticoagulant t herapy - Primary documented in this encounter Care Teams Manager Decision Support Relationship Specialty Start Date End Date Lucero Stevenson MD PCP - General Pediatrics 10/11/11 04/22/19 Chastity Montero MD MD Dermatology 09/23/[address] [place] [address] documented as of this encounter
--- OUTSIDE RECORDS SUMMARY | 2022-06-15 13:21 | XMS_ITS | Encounter Summary ---
:1945 Author Organization [place] Address [address] [place] [address]. [place] [address] Care Team Providers Name Role Phone Lucero Stevenson MD Primary Care Provider [phone] Chastity Montero MD Unavailable [phone] Reason for Visit Reason Comments Derm Problem Charlette returns today for a ch ronic pressure ulcer on lower midback reports improvment only 3 do ses of doxycycline remaining at this time. Encounter Details Date Type Department Care Team Description 09/23/2014 Office Visit Dermatology Chastity Montero Ulcer (H) (Primary 5th Floor, Clinic 5A MD Martha Dx) Roland Dickens 420 [facility] [address] [address] [place], [place] [phone] [address] (Work) [phone] Social History Tobacco Use Types Packs/Day Years [...] as of this encounter Patient Instructions Patient InstructionsChastity Montero MD - 09/23/2014 11:31 AM CDT Mix vinegar and water 1 to 1 and soak wash cloth. Apply to back for 5 to 10 minutes twice weekly documented in this encounter Progress Notes Chastity Montero MD - 09/23/2014 11:44 AM CDT Images from the original note were not included. [facility] Resident progress note Interval History: Charlette is a 69 year old woman with history of pressure ulcer on the back, contact dermatitis, ezcema, and stasis dermatitis presenting for chronic back ulcer x 2 years. Patient was last seen on 09/09/2014 and here for a 2 week f/u. States that she was given doxycyclineand this has improved her ulcer. She has 2 pills of the abx left. States that the ulcer has no pain,and does not wake her up from sleep any more. Denies fevers, chills, discharge. Current Pertinent Medications: Current Outpatient Prescriptions Medication ??? doxycycline (VIBRAMYCIN) 100 MG capsule ??? omeprazole (PRILOSEC) 40 MG capsule ??? warfarin (COUMADIN) 7.5 MG tablet ??? warfarin (COUMADIN) 10 MG tablet ??? ORDER FOR DME ??? triamterene-hydrochlorothiazide (DYAZIDE) 37.5-25 MG per capsule ??? losartan (COZAAR) 100 MG tablet ??? atenolol (TENORMIN) 25 MG tablet ??? desoximetasone (TOPICORT) 0.05 % GEL ??? hydrocortisone 2.5 % ointment ??? ORDER FOR DME ??? Cholecalciferol (VITAMIN D PO) ??? cetirizine (ZYRTEC) 10 MG tablet ??? acetaminophen (TYLENOL) 325 MG tablet No current facility-administered medications for this visit. Physical Exam (Resident / Clinician): Constitutional: Alert, NAD HEENT: Trachea midline, no trauma Skin: focused skin exam revealing: - Erythematous patches at the midline low back. Erosion with granulation tissue; dry, nontender withinterval improvement. Placed pictures of patient in chart for further treatment. Data: Culture from 09/09/2014 with Staph aureus (R to PCN, but Sn to tetracycline), B- hemolytic Strep (liriano-Sn) Assessment and Plan: Charlette is a 69 year old woman with history of pressure ulcer on the back, contact dermatitis, ezcema,and stasis dermatitis presenting for chronic back ulcer x 2 years. # Chronic ulcer, recurrent. Improving with doxycycline. Bacterial culture with Staph aureus (R to PCN, but Sn to tetracycline), B-hemolytic Strep (liriano-Sn); doxycycline appropriate. Concern for colonization as patient with a similar ulcer in the past. No history of drainage. Patient has multiple abx all ergies/adverse reactions that make colonization control with abx difficult. Will recommend completing doxycycline course, and start vinegar soaks and f/u in [address] Kylah Jackson MD, PhD PGY-3, Medicine 1147 .I was present for yancey portions of the history and exam. See resident note for pertinent history, exam, and treatment plan. Chastity Montero MD documented in this encounter Nursing Notes Sagrario Hernandez LPN - 09/23/2014 10:51 AM CDT Chief Complaint Patient presents with ??? Derm Problem Charlette returns today for a chronic pressure ulcer on lower midback reports improvment only 3 doses of doxycycline remaining at this time. Sagrario Hernandez LPN documented in this encounter Plan of Treatment Upcoming Encounters Date Type Specialty Care Team Description 11/15/2022 Virtual Visit Pharm Haylie Gonzalez, [facility] [address] [facility] [place] [address] (Wo rk) 11/15/2022 Virtual Visit IM/Peds Yane Barraza MD [address] [facility] [place] [address] (Wo rk) 03/03/2023 Virtual Visit Neurology Erlinda Barber MD [address] [facility] 295 [place] [address] (Wo rk) documented as of this encounter Visit Diagnoses Diagnosis Ulcer - Primary Chronic ulcer of unspecified site documented in this encounter Care Teams Handbag Stitcher Relationship Specialty Start Date End Date Lucero Stevenson MD PCP - General Pediatrics 10/11/11 04/22/19 Chastity Montero MD MD Dermatology 09/23/14 [address] [facility] 98 [place], [place] [id number] documented as of this encounter
--- OUTSIDE RECORDS SUMMARY | 2022-06-15 13:21 | XMS_ITS | Encounter Summary ---
:1945 Author Organization [place] Address [address] [place] [address] Care Team Providers Name Role Phone Lucero Stevenson MD Primary Care Provider [phone] Encounter Details Date Type Department Care Team Description 06/22/2014 Orders Only [facility] [address] [facility] [place] [address] Social History Tobacco [...] Virtual Visit Haylie Wakefield, [facility] [address] [facility] [address] [place], [place] [phone] (Wo rk) 11/15/2022 Virtual Visit IM/Peds Yane Barraza MD [address] [facility] [place] [address] (Wo rk) 03/03/2023 Virtual Visit Neurology Erlinda Barber MD [address] [place] [address] [facility] 295 [place], [place] [address] (Wo rk) documented as of this encounter Procedures Procedure Name Priority Date/Time Associated Diagnosis Comme nts H PYLORI ANTIGEN Routine 06/21/2014 7:00 PM Gastritis Resul ts for this STOOL GH [facility] procedure are i n the results section. documented in this encounter Results H Pylori antigen stool (06/21/2014 7:00 PM [facility]) Component Value Ref Test Analysis Performed At [facility] Range Method Time Signature Specimen Feces [facility] H Pylori Negative for Helicobacter py armando antigen by enzyme immunoassay. A negative [facility] Antigen result indicates the absenc e of H. pylori antigen or that the level of antigen MICROBIOLOGY is below the level of detection. Micro Report FINAL [facility] Status 06/23/2014 MICROBIOLOGY Specimen Anatomical Collection Method Collection Time Receive d Time (Source) Location / / Volume Laterality Stool specimen 06/21/2014 7:00 PM 014 (specimen) [facility] 11:54 AM [facility] Lucero Stevenson MD LAB - STOOLS ORDERABLES Performing Organization Address City/State/ZIP Code Phon e Number [address] [facility] 1440 [place] [address] [facility] MICROBIOLOGY documented in this encounter Visit Diagnoses Diagnosis Gastritis Unspecified gastritis and gastroduodenit is without mention of hemorrhage documented in this encounter Care Teams Student Success Counselor Relationship Specialty Start Date End Date Lucero Stevenson MD PCP - General Pediatrics 10/11/11 04/22/19 documented as of this encounter
--- OUTSIDE RECORDS SUMMARY | 2022-06-15 13:21 | XMS_ITS | Encounter Summary ---
:1945 Author Organization [place] Address [address] [place] [address] Care Team Providers Name Role Phone Lucero Stevenson MD Primary Care Provider [phone] Chastity Montero MD Unavailable [phone] Reason for Visit Reason Comments Anticoagulation Encounter Details Date Type Department Care Team Description 09/25/2014 Allied Health/[facility]urse [facility] Eag an Anticoagulation Visit [address] [facility] [place] [address] Social History Tobacco Use Types Packs/Day [...] this encounter Progress Notes Susie Murphy - 09/25/2014 10:52 AM CDT ANTICOAGULATION FOLLOW-UP CLINIC VISIT Patient Name: Charlette Brush Date: 09/25/2014 Contact Type: Face to Face SUBJECTIVE: Bleeding Signs/Symptoms: None Thromboembolic Signs/Symptoms: None Medication Changes: No Dietary Changes: No Bacterial/Viral Infection: No Missed Coumadin Doses: None Other Concerns: Has ulcer on her back. Takes doxycycline freq for this. Just completed 2w course yesterday. Does not seem to interfere with INRs. Ulcer some better but not gone. Treated by Derm Micromedex: Concurrent use of WARFARIN and DOXYCYCLINE may result in an increased risk of bleeding. ASSESSMENT/PLAN: See: ANTICOAGULATION QIC flow sheet. Dosage adjustment made based on physician directed care plan. ANTICOAGULATION CLINIC Susie Murphy RN documented in this encounter Plan of Treatment Upcoming Encounters Date Type Specialty Care Team Description 11/15/2022 Virtual Visit Pharm D Haylie Cheung, [facility] [address] [place] [address] (Lena max) 11/15/2022 Virtual Visit IM/Peds Yane Barraza MD [address] [facility] [place] [address] (Lena max) 03/03/2023 Virtual Visit Neurology Erlinda Barber MD 420 [facility] 295 [place] [address] (Lena max) documented as of this encounter Procedures Procedure Name Priority Date/Time Associated Diagnosis Comme nts INR POINT OF CARE Routine 09/25/2014 exterminator 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 documented in this encounter Results INR point of care (09/25/2014) P athologist Signature INR Point of 2.7 0.86 - [facility] 1.14 LAB Specimen (Source) Anatomical Location Collection Method / Collectio n Time Received Time / Laterality Volume 09/25/2014 Lucero Stevenson MD LAB - BLOOD ORDERABLES Performing Organization Address City/State/ZIP Code Phon e Number [facility] documented in this encounter Visit Diagnoses Diagnosis assisted current use of anticoagulant t herapy - Primary documented in this encounter Care Teams Cyber Forensics Analyst Relationship Specialty Start Date End Date Lucero Stevenson MD PCP - General Pediatrics 10/11/11 04/22/19 Chastity Montero MD MD Dermatology 09/23/[address] [place] [address] documented as of this encounter
--- OUTSIDE RECORDS SUMMARY | 2022-06-15 13:21 | XMS_ITS | Encounter Summary ---
:1945 Author Organization [place] Address [address] [place] [address] Care Team Providers Name Role Phone Lucero Stevenson MD Primary Care Provider [phone] Reason for Visit Reason Comments Derm Problem Charlette returns today for attacher maksim ulcer on lower back reports it opened up 3 days after I was seen l ast time. Encounter Details Date Type Department Care Team Description 09/09/2014 Office Visit Dermatology Chastity Montero Ulcer (H) (Primary 5th Floor, Clinic 5A MD Martha Dx) Roland Wangensteen 420 [facility] 98 516 [facility] 88 [address] [place], [place] [phone] [address] (Work) [phone] Social History Tobacco Use Types Packs/Day Years [...] as of this encounter Patient Instructions Patient InstructionsRubénmarielle Marimar Rodriguez - 09/09/2014 11:59 AM CST 1. Will start doxycycline today for 14 days 2. Continue vasoline to the affected ulcer 3. Follow up in 14 days to make sure it is getting better WEB DEVELOPER documented in this encounter Progress Notes Sagrario Hernandez LPN - 09/09/2014 11:41 AM CST Images from the original note were not included. Placed pictures of patient in chart for further treatment. WEB DEVELOPER Chastity Montero MD - 09/09/2014 11:39 AM CST [facility] Dermatology Clinic Return Patient Note CC: ulcer HPI: Charlette is a 69 year old woman with history of pressure ulcer on the back, contact dermatitis, ezcema, and stasis dermatitis presenting for chronic back ulcer x 2 years. She was previously seen on 06/10/15 and recommended to use vasoline on the ulcer, which she has been doing daily. She was prescribed doxycylline for 14 days, but was only able to take 12 days of the course due to 2 days of medication lost. Toward the end of the 12 days she felt like it was finally improving, but then worsened again after the antibiotics were stopped. The ulcer continues to cause her significant pain, specifically when she is sleeping due to needing to sleep on her back because she uses CPAP at night. She is taking tylenol 3-4 g chronically for knee pain, which minimally helps the ulcer. Her PCP is following her closely for this high Tylenol dose. She would like to start water aerobics, but is concerned that they won't let her swim in the pool due to the ulcer on her back. PMH: CEFERINO Stasis dermatitis Eczema HTN PE Meds: Current Outpatient Prescriptions Medication ??? omeprazole (PRILOSEC) 40 MG capsule ??? [...] tablet ??? acetaminophen (TYLENOL) 325 MG tablet Allergies: Allergies Allergen Reactions ??? Cephalexin Hives Keflex - hives ??? Lanolin Other (See Comments) skin irritation ??? Lisinopril cough ??? Neomycin Other (See Comments) skin irritation ??? Penicillins Hives ??? Bactroban [Mupirocin Calcium] Rash Physical Exam: General: well-appearing, obese woman in no distress. Skin: focused skin exam revealing: - multiple erythematous patches approximately 1x0.5 cm each on the midline low back and 1 area of erosion with granulation tissue and minimal dry edges A/P: 1) Chronic ulcer. Worsening since previous visit. Bacterial culture taken today due to increased erythema and pain. Continue vasoline topically to the affected ulcer. Start doxycycline 100 mg bid x 14 days as she is allergic to mupirocin and many other antibiotics. Follow up in 14 days to recheck. 2) Contact dermatitits/ezcema. Well controlled 3) Stasis dermatitis. Well Controlled Marimar Hand, MS4 .The medical student acted as scribe for this encounter. The encounter documented above was completely performed by myself. Chastity Montero MD WEB DEVELOPER documented in this encounter Nursing Notes Sagrario Hernandez LPN - 09/09/2014 11:26 AM CST Chief Complaint Patient presents with ??? Derm Problem Charlette returns today for chronic ulcer on lower back reports it opened up 3 days after I was seen last time. Sagrario Hernandez LPN WEB DEVELOPER documented in this encounter Plan of Treatment Upcoming Encounters Date Type Specialty Care Team Description 11/15/2022 Virtual Visit Pharm Haylie Gonzalez, [facility] [address] [place] [id number] (Wo rk) 11/15/2022 Virtual Visit IM/Peds Yane Barraza MD [address] [facility] [place] [address] (Wo rk) 03/03/2023 Virtual Visit Neurology Erlinda Barber MD 420 [facility] 295 [place] [address] (Wo rk) documented as of this encounter Procedures Procedure Name Priority Date/Time Associated Diagnosis Comme nts SKIN CULTURE Routine 09/09/2014 12:00 PM Ulcer (H) Results for this AEROBIC BACTERIAL PHP WEB DEVELOPER procedure are in the results section. documented in this encounter Results (ABNORMAL) Skin Culture Aerobic Bacterial (09/09/2014 12:00 PM PHP WEB DEVELOPER) Component Value Ref Test Analysis Performed At [facility] Range Method Time Signature Specimen Back [facility] Culture Micro Heavy growth Staphylococcus aureus [facility] Moderate growth Beta hemolytic Streptococcus group B [facility] (A) [facility] Micro Report FINAL 09/12/2014 [facility] Organism: Heavy growth [facility] Staphylococcus [facility] aureus [facility] Organism: Moderate growth [facility] Beta hemolytic [facility] Streptococcus [facility] group B BANK Specimen Anatomical Collection Method Collection Time Receive d Time (Source) Location / / Volume Laterality Specimen from 09/09/2014 12:00 09/09/2014 1:38 skin (specimen) PM PHP WEB DEVELOPER PM PHP WEB DEVELOPER Organism Antibiotic Method Susceptibility Heavy growth staphylococcus Ciprofloxacin <=0. 5 Susceptible ug/mL aureus (barb) Heavy growth staphylococcus Clindamycin <=0. 25 Susceptible ug/mL aureus (barb) Heavy growth staphylococcus Erythromycin <=0. 25 Susceptible ug/mL aureus (barb) Heavy growth staphylococcus Gentamicin <=0. 5 Susceptible ug/mL aureus (barb) Heavy growth staphylococcus Levofloxacin 0.25 Susceptible ug/mL aureus (barb) Heavy growth staphylococcus Oxacillin 0.5 Susceptible ug/mL aureus (barb) Heavy growth staphylococcus Penicillin >.5 Resistant ug/mL aureus (barb) Heavy growth staphylococcus Tetracycline <=1 Susceptible ug/mL aureus (barb) Heavy growth staphylococcus Trimethoprim/Sulfamethoxa <=.5/9.5 Susceptible ug/mL aureus (barb) zole Heavy growth staphylococcus Vancomycin <=0. 5 Susceptible ug/mL aureus (barb) Moderate growth beta Ampicillin <=0.06 Susc eptible ug/mL hemolytic streptococcus group b (barb gram pos panel) Moderate growth beta Penicillin <=0.03 Susc eptible ug/mL hemolytic streptococcus group b (barb gram pos panel) Moderate growth beta Vancomycin 0.25 Suscep tible ug/mL hemolytic streptococcus group b (barb gram pos panel) Moderate growth beta Cefotaxime <=0.25 Susc eptible ug/mL hemolytic streptococcus group b (barb gram pos panel) Moderate growth beta Ceftriaxone <=0.25 Susc eptible ug/mL hemolytic streptococcus group b (barb gram pos panel) Moderate growth beta Erythromycin <=0.06 Susc eptible ug/mL hemolytic streptococcus group b (barb gram pos panel) Moderate growth beta Clindamycin <=0.06 Susc eptible ug/mL hemolytic streptococcus group b (barb gram pos panel) Chastity Montero MD LAB - MICRO GENERAL ORDERABL ES Performing Organization Address City/State/ZIP Code Phon e Number [facility] [address] documented in this encounter Visit Diagnoses Diagnosis Ulcer - Primary Chronic ulcer of unspecified site documented in this encounter Care Teams Assistant Chief Nursing Officer Relationship Specialty Start Date End Date Lucero Stevenson MD PCP - General Pediatrics 10/11/11 04/22/19 documented as of this encounter
--- OUTSIDE RECORDS SUMMARY | 2022-06-15 13:21 | XMS_ITS | Encounter Summary ---
:1945 Author Organization [facility] Address [address] [place] [address] Care Team Providers Name Role Phone Lucero Stevenson MD Primary Care Provider [phone] Chastity Montero MD Unavailable [phone] Reason for Visit Reason Comments Anticoagulation Encounter Details Date Type Department Care Team Description 10/30/2014 Allied Health/Nurse [facility] Eag an Anticoagulation Visit [address] [facility] [place] [address] Social History Tobacco [...] this encounter Progress Notes Susie Murphy - 10/30/2014 10:56 AM CDT ANTICOAGULATION FOLLOW-UP CLINIC VISIT Patient Name: Charlette Brush Date: 10/30/2014 Contact Type: Face to Face SUBJECTIVE: Bleeding Signs/Symptoms: None Thromboembolic Signs/Symptoms: None Medication Changes: No Dietary Changes: Pt on [employer] diet Bacterial/Viral Infection: No Missed Coumadin Doses: None Other Concerns: No ASSESSMENT/PLAN: See: ANTICOAGULATION QIC flow sheet. Dosage adjustment made based on physician directed care plan. ANTICOAGULATION CLINIC Susie Murphy RN documented in this encounter Plan of Treatment Upcoming Encounters Date Type Specialty Care Team Description 11/15/2022 Virtual Visit Pharm D Haylie Cheung, [facility] [address] [facility] [place] [address] (Lena max) 11/15/2022 Virtual Visit IM/Peds Yane Barraza MD [address] [facility] [place] [address] (Lena max) 03/03/2023 Virtual Visit Neurology Erlinda Barber MD 420 [facility] 295 [place] [address] (Lena max) documented as of this encounter Procedures Procedure Name Priority Date/Time Associated Diagnosis Comme nts INR POINT OF CARE Routine 10/30/2014 continuous churn buttermaker 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 documented in this encounter Results INR point of care (10/30/2014) P athologist Signature INR Point of 2.5 0.86 - [facility] Care 1.14 LAB Specimen (Source) Anatomical Location Collection Method / Collectio n Time Received Time / Laterality Volume 10/30/2014 Lucero Stevenson MD LAB - BLOOD ORDERABLES Performing Organization Address City/State/ZIP Code Phon e Number [facility] documented in this encounter Visit Diagnoses Diagnosis continuous churn buttermaker current use of anticoagulant t herapy - Primary Other pulmonary embolism and infarction [facility] (current) use of anticoagulant s Long-term (current) use of anticoagulant s documented in this encounter Care Teams Bottoming Room Inspector Relationship Specialty Start Date End Date Lucero Stevenson MD PCP - General Pediatrics 10/11/11 04/22/19 Chastity Montero MD MD Dermatology 09/23/[address] [place] [address] documented as of this encounter
--- OUTSIDE RECORDS SUMMARY | 2022-06-15 13:21 | XMS_ITS | Encounter Summary ---
:1945 Author Organization [place] Address [address] [place] [address] Care Team Providers Name Role Phone Lucero Stevenson MD Primary Care Provider [phone] Ady Ramos MD Unavailable Reason for Visit Reason Onset Date Comments Medication Question 04/17/2014 message from pharmac y Encounter Details Date Type Department Care Team Description 04/17/2014 Telephone Dermatology Chastity Montero Medication Question 5th Floor, Clinic 5A MD Martha (message from pharmacy Roland Dickens 420 [facility] ) Building [address] [place] [id number] [place] [address] (Wo rk) [phone] [phone] Social History Tobacco Use Types Packs/Day Years [...] this encounter Miscellaneous Notes Telephone Encounter - Amador Renteria MD - 04/18/2014 9:02 AM CDT Received below message as the resident public information relations manager and discussed with Dr Devyn Gomez. While the isolateS aureus is sensitive to clindamycin, we favor proceeding with doxycyline therapy as planned and having the patient call her anticoagulation clinic and receive closer monitoring. Called both the patient's pharmacy and the patient and clarified this information. Telephone Encounter - Sagrario Hernandez LPN - 04/17/2014 3:[address] Renteria, I received a message from the pharmacy in concerns about the Doxycycline that Dr. Montero sent today. The message states: DDI with coumadin, Increas PT level, Cause bleeding, Please verify to see if you want us to fill and monitor coumadin level, Alexander Mishra. Please verify medication is ok or change the Rx as pt just has a culture completed in clinic with Dr. Montero. Pharmacy information selected above for any needs. Sagrario Mishra LPN documented in this encounter Plan of Treatment Upcoming Encounters Date Type Specialty Care Team Description 11/15/2022 Virtual Visit Pharm D Haylie Cheung, [facility] [address] [facility] [place] [address] (Wo winter) 11/15/2022 Virtual Visit IM/Peds Yane Barraza MD [address] [facility] [place] [address] (Wo winter) 03/03/2023 Virtual Visit Neurology Erlinda Barber MD 420 [facility] 295 [place] [address] (Wo rk) documented as of this encounter Visit Diagnoses Not on filedocumented in this encounter Care Teams Binding Nicker Relationship Specialty Start Date End Date Lucero Stevenson MD PCP - General Pediatrics 10/11/11 04/22/19 Ady Ramos MD MD Neurological Surgery 11/25/13 06/09/[address] [place] [address] documented as of this encounter
--- OUTSIDE RECORDS SUMMARY | 2022-06-15 13:21 | XMS_ITS | Encounter Summary ---
:1945 Author Organization [place] Address [address] [place] [address]. [place] [address] Care Team Providers Name Role Phone Lucero Stevenson MD Primary Care Provider [phone] Ashwini Montero MD Unavailable [phone] Reason for Visit Reason Comments Derm Problem Marzena is being seen today fo r a pressure ulcer on back. Patient states the original ulcer is doing better, but now I am getting another one close to that one, which sta rted since I was here last time. Encounter Details Date Type Department Care Team Description 10/27/2014 Office Visit Dermatology Ashwini Montero Neoplasm of uncertain 5th Floor, Clinic 5A MD Martha behavior of skin [place] [address] [facility] (Jessica antonia Dx) Building [facility] [address] [address] [place], [place] [phone] (Work) [phone] Social History Tobacco Use Types Packs/Day Years [...] as of this encounter Patient Instructions Patient InstructionsSagrario Hernandez LPN - 10/27/2014 11:13 AM CDT Biopsy Information This information has been written to inform you of the procedure being done today. It includes answers to questions that patients ask most often. If you have any questions, please be sure to discuss them with the surveyor chain helper or the dermatology nurse before the procedure begins. What is the purpose of a biopsy? A biopsy is done to obtain a piece of skin tissue that will be sent to the lab to assist the doctor in making a diagnosis. It also may be done to treat certain skin conditions, for example- removing a mole. How is the procedure done? The area to be biopsied will be cleaned the alcohol. Your skin will be numbed with a local anesthetic (Lidocaine with Epinephrine). While your skin is being numbed, you may feel a burning sensation. After the area is numbed, you should not feel any pain. However, you may feel pressure during the procedure. Pressure is normal, but if you feel any pain during the procedure, let the Commercial Lawn Specialist know and you will be given more numbing medication. There are two ways this procedure can be preformed: Shave Biopsy After the area is numbed, the surveyor chain helper uses a scalpel blade to remove a thin slice of skin tissue. Then a solution is applied to the wound with a cotton swab to stop the bleeding. This type of biopsy requires no suture as it is very superficial. Punch Biopsy After the area is numbed, the surveyor chain helper uses a special instrument shaped like a miniature cookie-cutter, to cut a very small [place] into the skin. Using a small scissors, a piece of skin tissue is removed. Usually this type of biopsy is closed with a suture. Depending on the area of the body wherethe biopsy was taken from, the stitches will need to be removed in 1-2 weeks. Your Doctor will discuss where you will have the stitches removed. This is a very simple and quick procedure that can be done at any Doctor office, and in some situations, can even be done at home. If you have a follow up appointment with us in the time frame that is appropriate to have them removed, the surveyor chain helper or isaias matology nurse will remove them at that time. The appearance of the biopsy site will vary, depending on the type of procedure done and the areas involved. How long will the procedure take and when will I get the results? A shave or punch biopsy usually takes between 5 and 10 minutes. If sutures are required, additional time may be needed. Results of your procedure should be available with in the next two weeks. A physician will call you to give you the results and inform you of follow up care if needed. If you have not heard from a physician within two weeks, please call our office at [phone]. How do I take care of the biopsy site? Shave Biopsy You may remove the original Band-Aid after 24 hours. Keep the site clean. Wash gently with soap and water everyday and any other time it becomes dirty. Rinse well and pat dry. It is advised that until the area is completely healed you should keep it moist with vaseline and a band-aid. Punch Biopsy The area should be covered with the original band-Aid and kept dry for the first 24 hours after the procedure. After the first 24 hours, you can gently clean the area with soap and water. Rinse well and pat dry. When showering, do not let the full force of the water come in contact with the biopsy site. In most cases this site will be closed with a stitch. This area should be covered with vaseline and a band-Aid until the stitch is removed. This band-Aid should be replaced with fresh vaseline applied daily. Your Doctor will discuss the length of time your sutures should be left in. We will also discuss options for removal. Some patients return to the clinic to have them removed, some patients go to a primary care clinic closer to home and some patients remove the stitch themselves. Your doctor will discuss this with you and decide what will work best for you. If bleeding occurs after either type of procedure apply CONSTANT pressure for 10 minutes. Make sure to keep an eye on the clock when timing this and no peeking! If bleeding does not stop, call your physician immediately at- [phone] during regular business hours. If uncontrolled bleeding occurs after hours call [phone] and ask to have the Dermatology Resident on-call paged. Infection Inspect the biopsy area for signs of infection which may include: Increased redness and swelling, drainage, pain or feeling of warmth at biopsy site. Red streaks leading away from the wound Pus (Clear or slightly yellow drainage is o.k.) Fever It is common to have slight redness and swelling at the biopsy site. Contact your Dermatology Clinic if any signs of infection occur. Important phone numbers: Dermatology Clinic [phone] After-hours number to have Dermatology Resident on-call paged [phone] [facility] Emergency Room (answered 24 hours a day) [phone] [facility] Emergency Room TTY for hearing impaired (answered 24 hours a day) [phone] documented in this encounter Progress Notes Sagrario Hernandez LPN - 10/27/2014 3:50 PM CDT Images from the original note were not included. Placed pictures of patient in chart for further treatment. Nely Mcallister MD - 10/27/2014 11:11 AM CDT CHIEF COMPLAINT: Followup pressures ulcers on the back. SUBJECTIVE: Ms. Evans is a pleasant 69-year-old female well known to Dr. Montero who returns to the Dermatology Clinic today for followup of pressure ulcers on the back. The patient was last seen in the Dermatology Clinic on 09/23/2014. Since that time, the patient notes that the area previously present has healed in well. She completed a course of oral doxycycline just prior to the last visit, and she thinks this was helpful. She does note; however, new involvement just lateral to the previous area of involvement and is unsure of any inciting factors. She states that she does sit in a chair for approximately 6 hours per day watching television and also sleeps on her back due to a CPAPmask and cannot lay on her sides. She does not know of any other reasons why she would be getting ulcerations on her back. She states that she is otherwise feeling well but notes a papule on her right forehead that she would like us to evaluate as well. This has been present for several months, is not changing, but she is concerned about it. She denies any other new symptomatic or rapidly changing skin lesions. She states that she is otherwise feeling well. OBJECTIVE: GENERAL: This is a well-appearing female who appears her stated age and is alert and oriented x3 in no acute distress, pleasant and cooperative with the examination. SKIN: A focused skin examination of the patient's face and low back was performed today. The patientdeclined further exam. On the patient's right forehead is evidence of a pink somewhat friable papulemeasuring approximately 3 mm in diameter. On the patient's left lower back there is evidence of a healing ulceration previously noted on exam, but lateral to this there is evidence of approximately 3 scattered erythematous appearing macules and patches. One appears to be on the verge of ulceration. The remainder of the skin examination is unremarkable. ASSESSMENT AND PLAN: 1. 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 We are concerned that the ulcerations on the back are still of unclear etiology. We believe that it could possibly be related to pressure, but we would like to rule out any other underlying causes of ulcerations. Therefore we did discuss with the patient that we would recommend a punch biopsy today, and she was in agreement with the plan. PROCEDURE NOTE: After written informed consent was obtained, an alcohol swab was used for cleaning, and 1% lidocaine with epinephrine was injected into the area on the left lower back. Following this a2-mm punch biopsy tool was used to obtain a specimen of the lesion and submitted in formalin for histopathologic examination. Following this, electrocautery was used to obtain hemostasis, and Vaseline was applied. The patient tolerated the procedure well without complication. We have a plan to call the patient when the biopsy results return. We will plan based on these results. 2. Neoplasm of uncertain behavior of skin, right forehead. We discussed with the patient that we areunsure of the diagnosis of the pink papule on her forehead. As it is friable, we did recommend a shave biopsy of the area to rule out nonmelanoma skin cancer including basal cell carcinoma versus a benign angioma versus sebaceous hyperplasia. PROCEDURE NOTE: After written informed consent was obtained, 1% lidocaine with epinephrine was injected for anesthetic, and a [place] blade was used to shave the specimen flat. The specimen was submitted in formalin for histopathologic examination. Electrocautery was used for hemostasis. The patient tolerated the procedure well without complication. We will plan to call the patient when biopsy results return with a plan dictated by these results. We will plan to see the patient back in the Dermatology Clinic in 2 weeks for followup to ensure that she has not had any infection of the biopsy sites and they are well healed. She will call should any questions or concerns arise prior to this. She expressed understanding of the plan. Dictated and edited by Nely Mcallister MD Resident I was present for yancey portions of the procedures. KB .I was present for yancey portions of the history and exam. See resident note for pertinent history, exam, and treatment plan. Ashwini Montero MD documented in this encounter Nursing Notes Radha Singh LPN - 10/27/2014 10:25 AM CDT Chief Complaint Patient presents with ??? Derm Problem Marzena is being seen today for a pressure ulcer on back. Patient states the original ulcer is doingbetter, but now I am getting another one close to that one, which started since I was here last time. Radha Singh LPN documented in this encounter Plan of Treatment Upcoming Encounters Date Type Specialty Care Team Description 11/15/2022 Virtual Visit Pharm Haylie Gonzalez, [facility] [address] [facility] [place] [address] (Lena max) 11/15/2022 Virtual Visit IM/Peds Yane Barraza MD [address] [facility] [place] [address] (Lena max) 03/03/2023 Virtual Visit Neurology Erlinda Barber MD [address] [facility] [address] [place] [address] (Wo rk) documented as of this encounter Procedures Procedure Name Priority Date/Time Associated Diagnosis Comme nts SURGICAL PATHOLOGY Routine 10/27/2014 10:52 AM Neoplasm of Re sults for this EXAM CDT uncertain behavior procedure are in of skin the results section. HC BIOPSY Routine 10/27/2014 10:46 AM Neoplasm Of SKIN/SUBQ/MUC MEM, CDT Uncertain Behavior SINGLE LESION Of Skin documented in this encounter Results Surgical pathology exam (10/27/2014 10:52 AM CDT) Component Value Ref Test Analysis Performed At [facility] gist Range Method Time Signature Copath Report Patient Name: MARZENA EVANS MR#: [id number] Specimen #: [id number] Collected: 10/27/2014 Received: 10/27/2014 Reported: 10/31/2014 13:32 Ordering Phy(s): ASHWINI MONTERO SPECIMEN(S): A: Skin, left low back B: Skin, right forehead FINAL DIAGNOSIS: A. ??Skin, back, left low: ? - Features most suggestive of prior traumatization - (see comment). B. ??Skin, forehead, right: ? - Fibrous papule - (see description). COMMENT: A. ??The findings in this specimen include superficial epide rmal necrosis with scattered necrotic keratinocytes above the basal layer, subepidermal fibrin and upper dermal fibrosis resembling sca r. ??This constellation of findings suggests prior traumatization such as excoriation or other physical factor. ??No active inflammato ry process is identified, and no eccrine necrosis or other definite featur es of pressure-induced ischemia are seen. ??Clinical correlation i s recommended. B. ??The specimen also exhibits abundant mature sebaceous lo bules raising the possibility of coincident sebaceous hyperplasia. I have personally reviewed all specimens and or slides, incl uding the listed special stains, and used them with my medical judgeme nt to determine the final diagnosis. Electronically signed out by: Reji Reyes M.D., [facility] CLINICAL HISTORY: The patient is a 69-year-old woman. GROSS: A: The specimen is received in formalin with proper patient identification, labeled L. Lower back and the specimen con sists of a single, unoriented skin punch biopsy measuring 0.3 cm in jyothi meter and is excised to a depth of 0.5 cm. ??The skin surface displays no distinct lesion. ??The resection margin is inked black. ??It is entir dante submitted in cassette A1. B: The specimen is received in formalin with proper patient identification, labeled R. Forehead and the specimen consi sts of a single, irregular skin shave measuring 0.6 x 0.3 cm. ??The s kin surfaces displays 0.1 x 0.1 cm brown-godwin lesion. ??The resection bina in is inked black. ??It is serially sectioned and entirely submitted in cassette B1. (Dictated by: Padmini Vogel 10/28/2014 08:52 AM) MICROSCOPIC: A. ??The specimen exhibits scale crust, with outer epidermal erosion and scattered individually necrotic keratinocytes above the basa l layer, mild keratinocyte atypia (interpreted as reactive), subepide rmal fibrin, upper dermal fibrosis resembling scar and a sparse superfici al perivascular lymphocytic infiltrate. B. ??The specimen exhibits abundant mature sebaceous lobules surrounded by sclerotic stroma with interstitial stellate and spindled cells as well as small multinucleated giant cells and scattered ectat ic blood cells with thin endothelial cell urias. CPT Codes: A: 13266-UJ0.T, 98539-LL5.P B: 96422-FE6.T, 26059-EV1.P TESTING LAB LOCATION: [facility], [address] ?? [address] COLLECTION SITE: Client: [facility] Location: [place] (B) Specimen Anatomical Collection Method Collection Time Receive d Time (Source) Location / / Volume Laterality 10/27/2014 10:52 10/27/2014 3:25 AM CDT PM CDT Ashwini Montero MD [facility] Organization Address City/State/ZIP Code Phon e Number [place] documented in this encounter Visit Diagnoses Diagnosis Neoplasm of uncertain behavior of skin - Primary documented in this encounter Care Teams Retirement Actuary Relationship Specialty Start Date End Date Lucero Stevenson MD PCP - General Pediatrics 10/11/11 04/22/19 Ashwini Montero MD MD Dermatology 09/23/[address] [place] [address] documented as of this encounter
--- OUTSIDE RECORDS SUMMARY | 2022-06-15 13:21 | XMS_ITS | Encounter Summary ---
:1945 Author Organization [place] Address [address] [place] [address] Care Team Providers Name Role Phone Lucero Knox MD Primary Care Provider [phone] Reason for Visit Reason Comments Anticoagulation Encounter Details Date Type Department Care Team Description 06/17/2014 Allied [facility]urse [facility] Eag an Anticoagulation Visit [address] [...] this encounter Progress Notes Susie Murphy - 06/17/2014 2:36 PM CST ANTICOAGULATION FOLLOW-UP CLINIC VISIT Patient Name: Charlette Brush Date: 06/17/2014 Contact Type: Face to Face SUBJECTIVE: Bleeding Signs/Symptoms: None Thromboembolic Signs/Symptoms: None Medication Changes: No Dietary Changes: No Bacterial/Viral Infection: No Missed Coumadin Doses: None Other Concerns: Pt has had chest pressure and back pain on Sat and Mon nights. No other symptoms. Goes away by itself. Nothing in the daytime. She feels it's like the pain she had when taking ibuprofenand then, she was on omeprazole. Not taking ibuprofen nor omeprazole at this time. Pt has appointment to discuss with DR. KNOX tomorrow. She knows to use ER if worsening symptoms before appointment. ASSESSMENT/PLAN: See: ANTICOAGULATION QIC flow sheet. Dosage adjustment made based on physician directed care plan. ANTICOAGULATION CLINIC Susie Murphy RN IOPULMONARY TECHNICIAN AND EEG TECH documented in this encounter Plan of Treatment Upcoming Encounters Date Type Specialty Care Team Description 11/15/2022 Virtual Visit Pharm D Haylie Cheung, [facility] [address] [place] [address] (Lena max) 11/15/2022 Virtual Visit IM/Peds Yane Barraza MD [address] [facility] [place] [address] (Lena max) 03/03/2023 Virtual Visit Neurology Erlinda Barber MD [address] [facility] [address] [place] [address] (Lena max) documented as of this encounter Procedures Procedure Name Priority Date/Time Associated Diagnosis Comme nts INR POINT OF CARE Routine 06/17/2014 [facility] 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
--- OUTSIDE RECORDS SUMMARY | 2022-06-15 13:21 | XMS_ITS | Encounter Summary ---
:1945 Author Organization [place] Address [address] [place] [address] Care Team Providers Name Role Phone Lucero Stevenson MD Primary Care Provider [phone] Reason for Visit Reason Onset Date Comments Results 09/15/2014 Encounter Details Date Type Department Care Team Description 09/15/2014 Telephone Dermatology Chastity Montero, Results 5th Floor, Clinic 5A MD [facility] [address] [facility] [address] [facility] [place] [phone] Social History Tobacco Use Types Packs/Day Years [...] encounter Miscellaneous Notes Telephone Encounter - Sagrario Hernandez LPN - 09/15/2014 2:38 PM CST Notes Recorded by Sagrario Hernandez LPN on 09/15/2014 at 2:37 PM Called and left voice mail with statement below, Left my direct line for Charlette Brush to get a hold of me for and further questions or concerns as well to let me know an update. Notes Recorded by Chastity Montero MD on 09/15/2014 at 8:04 AM She is mainly growing staph aureus which should be responsive to the doxycycline. There is also a strep bacteria. Is she better on the doxycycline? AL BREEDER documented in this encounter Plan of Treatment Upcoming Encounters Date Type Specialty Care Team Description 11/15/2022 Virtual Visit Pharm D Haylie Cheung, [facility] [address] [facility] [address] [place] [phone] (Wo rk) 11/15/2022 Virtual Visit IM/Peds Yane Barraza MD [address] [facility] [place] [phone] (Wo rk) 03/03/2023 Virtual Visit Neurology Erlinda Barber MD [address] [facility] [address] [place], [place] [address] (Wo rk) documented as of this encounter Visit Diagnoses Not on filedocumented in this encounter Care Teams Sound Technician Supervisor Relationship Specialty Start Date End Date Lucero Stevenson MD PCP - General Pediatrics 10/11/11 04/22/19 documented as of this encounter
--- OUTSIDE RECORDS SUMMARY | 2022-06-15 13:21 | XMS_ITS | Encounter Summary ---
:1945 Author Organization [place] Address [address] [place] [address]. [place] [address] Care Team Providers Name Role Phone Lucero Stevenson MD Primary Care Provider Reason for Visit Reason Comments Derm Problem Charlette returns to the clinic today for a pressure ulcer on lower mid back. She reports improvemen t and healing since last visit. Encounter Details Date Type Department Care Team Description 06/10/2014 Office Visit Dermatology Chastity Montero Dermatitis (Primary 5th Floor, Clinic 5A MD Martha Dx) Roland Bangensteen 420 [facility] 98 516 [facility] 88 [address] [place], [place] [phone] (Work) [phone] Social History Tobacco Use Types Packs/Day Years [...] documented as of this encounter Progress Notes Kim Persaud MA - 06/10/2014 5:14 PM CST Images from the original note were not included. Pictures taken of patient today to be placed in chart for future reference. FLAT INSPECTOR Hilda Layne MD - 06/10/2014 12:33 PM CST CHIEF COMPLAINT: Follow-up pressure ulcer. SUBJECTIVE: Charlette is a pleasant 69-year-old female with a history of a pressure ulcer on the back, contact dermatitis/eczema and stasis dermatitis. She was last seen in Derm Clinic on 04/14 at which time we had taken a culture of the back wound and recommended dressings with Vaseline and Telfa. The culture grew light growth of staph aureus with normal skin mikaela. She has continued to use Vaseline twice a day and reports that this area is doing better. It does hurt once in a while at night when she lays on it, so she tries to switch her position often. She has not noticed any drainage, fevers or chills. In terms of her dry skin she showers only occasionally. She uses Vanicream as a moisturizer. REVIEW OF SYSTEMS: She feels otherwise well, denies other skin concerns. PHYSICAL EXAMINATION: GENERAL: Alert and oriented in no acute distress, pleasant and cooperative. SKIN: A focused exam of the face, hands, arms and low back and bilateral legs is notable for 2 well-healed scars on the left lower back and 1 adjacent crusted erosion which also appears to be healing. The arms are smooth and well- moisturized. The bilateral legs show hyperpigmented macules and a few tense vesicles on the left medial leg. ASSESSMENT/PLAN: 1. Pressure ulcer on the back. This is improved from the last visit with Vaseline alone. There remains 1 open wound today which is starting to re- epithelize. Photos were obtained for the chart. She maycontinue to use Vaseline for wound care. Skin culture from this area has grown light Staph Aureus. 2. Contact dermatitis/eczema, well-controlled. She is allergic to Mupirocin, among other topicals. 3. Stasis dermatitis, well-controlled. 4. Return to clinic in 3 months. Dictated by Hilda Layne MD Resident I have reviewed and edited this note. Staff was present for a significant portion of the exam, including procedures. Milton Layne MD Dermatology Resident PGY-2 .I was present for yancey portions of the history and exam. See resident note for pertinent history, exam, and treatment plan. Chastity Montero MD FLAT INSPECTOR documented in this encounter Nursing Notes Sagrario Hernandez LPN - 06/10/2014 11:06 AM CST Chief Complaint Patient presents with ??? Derm Problem Charlette returns to the clinic today for a pressure ulcer on lower mid back. She reports improvement and healing since last visit. Sagrario Hernandez LPN FLAT INSPECTOR documented in this encounter Plan of Treatment Upcoming Encounters Date Type Specialty Care Team Description 11/15/2022 Virtual Visit Pharm D Haylie Cheung, [facility] [address] [facility] [place] [id number] (Wo rk) 11/15/2022 Virtual Visit IM/Peds Yane Barraza MD 3305 [facility] [place] [id number] (Wo rk) 03/03/2023 Virtual Visit Neurology Erlinda Barber MD 420 [facility] 295 [place], [place] [address] (Wo rk) documented as of this encounter Visit Diagnoses Diagnosis Dermatitis - Primary Contact dermatitis and other eczema, due to unspecified cause documented in this encounter Care Teams Carton Maker Relationship Specialty Start Date End Date Lucero Stevenson MD PCP - General Pediatrics 10/11/11 04/22/19 documented as of this encounter
--- OUTSIDE RECORDS SUMMARY | 2022-06-15 13:21 | XMS_ITS | Encounter Summary ---
:1945 Author Organization [place] Address [address] [place] [address] Care Team Providers Name Role Phone Lucero Stevenson MD Primary Care Provider [phone] Chastity Montero MD Unavailable [phone] Reason for Visit Reason Onset Date Comments Refill Request 10/05/2014 omeprazole Encounter Details Date Type Department Care Team Description 10/05/2014 MyC Refill [facility] Lucero Stevenson l Request Yarelis Littlejohn MD (omeprazole) 1440 [facility] [place] [phone] 3809 [facility] [phone] [place], [place] [address] (Wo rk) Social History [...] this encounter Miscellaneous Notes Telephone Encounter - Jeffrey Susie - 10/06/2014 10:55 AM CDT [place] 12-3-14 Pt says this med is working for her. Filled PSO. Susie Murphy RN documented in this encounter Plan of Treatment Upcoming Encounters Date Type Specialty Care Team Description 11/15/2022 Virtual Visit Pharm D Haylie Cheung K sunday Rojas, [facility] [address] [facility] [place] [address] (Wo rk) 11/15/2022 Virtual Visit IM/Yane Mathias MD [address] [facility] [address] [place] [phone] (Wo rk) 03/03/2023 Virtual Visit Neurology Erlinda Barber MD 420 [facility] 295 [place] [address] (Wo rk) documented as of this encounter Visit Diagnoses Diagnosis Gastritis - Primary Unspecified gastritis and gastroduodenit is without mention of hemorrhage documented in this encounter Care Teams Sculpture Instructor Relationship Specialty Start Date End Date Lucero Stevenson MD PCP - General Pediatrics 10/11/11 04/22/19 Chastity Montero MD MD Dermatology 09/23/14 420 [facility] 98 [place] [address] documented as of this encounter
--- OUTSIDE RECORDS SUMMARY | 2022-06-15 13:21 | XMS_ITS | Encounter Summary ---
:1945 Author Organization [place] Address [address] [place] [address] Care Team Providers Name Role Phone Lucero Stevenson MD Primary Care Provider [phone] Reason for Visit Reason Comments Anticoagulation Encounter Details Date Type Department Care Team Description 07/03/2014 [facility] Eag an Anticoagulation Visit 1440 [facility] [...] this encounter Progress Notes Susie Murphy - 07/03/2014 12:52 PM CST ANTICOAGULATION FOLLOW-UP CLINIC VISIT Patient Name: Charlette Stilesalison Date: 07/03/2014 Contact Type: Face to Face SUBJECTIVE: Bleeding Signs/Symptoms: None Thromboembolic Signs/Symptoms: None Medication Changes: Omeprazole. Micromedex says no interaction with warfarin. Dietary Changes: No Bacterial/Viral Infection: No Missed Coumadin Doses: None Other Concerns: No ASSESSMENT/PLAN: See: ANTICOAGULATION QIC flow sheet. Dosage adjustment made based on physician directed care plan. Omeprazole filled for 90d supply PSO. ANTICOAGULATION CLINIC Susie Mruphy RN T COMMANDER documented in this encounter Plan of Treatment Upcoming Encounters Date Type Specialty Care Team Description 11/15/2022 Virtual Visit Pharm D Haylie Cheung, [facility] 1440 [facility] [place] [address] (Lena max) 11/15/2022 Virtual Visit IM/Yane Mathias MD 3305 [facility] [place] [address] (Lena max) 03/03/2023 Virtual Visit Neurology Erlinda Barber MD 420 [facility] 295 [place] [address] (Lena max) documented as of this encounter Procedures Procedure Name Priority Date/Time Associated Diagnosis Comme nts INR POINT OF CARE Routine 07/03/2014 custodial 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 documented in this encounter Results INR point of care (07/03/2014) P athologist Signature INR Point of 2.4 0.86 - [facility] Care 1.14 LAB Specimen (Source) Anatomical Location Collection Method / Collectio n Time Received Time / Laterality Volume 07/03/2014 Lucero Stevenson MD LAB - BLOOD ORDERABLES Performing Organization Address City/State/ZIP Code Phon e Number [facility] documented in this encounter Visit Diagnoses Diagnosis Gastritis - Primary Unspecified gastritis and gastroduodenit is without mention of hemorrhage meterman current use of anticoagulant t herapy documented in this encounter Care Teams Front Desk Relationship Specialty Start Date End Date Lucero Stevenson MD PCP - General Pediatrics 10/11/11 04/22/19 documented as of this encounter
--- OUTSIDE RECORDS SUMMARY | 2022-06-15 13:21 | XMS_ITS | Encounter Summary ---
:1945 Author Organization [facility] Address [address] [place] [address] Care Team Providers Name Role Phone Lucero Stevenson MD Primary Care Provider [phone] Ady Ramos MD Unavailable Reason for Visit Reason Comments Flu Shot Encounter Details Date Type Department Care Team Description 05/02/2014 [facility] Eag an Flu Shot Visit 1440 [facility] [place] [address] Social History [...] as of this encounter Progress Notes Martha Monk, REFUELING RAMP SUPERVISOR - 05/02/2014 12:54 PM CDT Injectable Influenza Immunization Documentation 1. Is [...] the person to be vaccinated ever had Guillain-Bristol syndrome? No Form completed by patient Form reviewed by BLAZE Morrison documented in this encounter Plan of Treatment Upcoming Encounters Date Type Specialty Care Team Description 11/15/2022 Virtual Visit Pharm D Haylie Cheung, [facility] [address] [facility] [place] [address] (Wo rk) 11/15/2022 Virtual Visit IM/Yane Mathias MD 3305 [facility] [place] [phone] (Wo rk) 03/03/2023 Virtual Visit Neurology Erlinda Barber MD [address] [place] [address] [facility] 295 [place] [address] (Wo rk) documented as of this encounter Visit Diagnoses Diagnosis Need for prophylactic vaccination and in oculation against influenza - Primary documented in this encounter Care Teams Messenger Floorperson Relationship Specialty Start Date End Date Lucero Stevenson MD PCP - General Pediatrics 10/11/11 04/22/19 Ady Ramos MD MD Neurological Surgery 11/25/13 06/09/[address] [facility] 106 [place] [address] documented as of this encounter
--- OUTSIDE RECORDS SUMMARY | 2022-06-15 13:21 | XMS_ITS | Encounter Summary ---
:1945 Author Organization [place] Address [address] [place] [address] Care Team Providers Name Role Phone Lucero Stevenson MD Primary Care Provider [phone] Chastity Montero MD Unavailable [phone] Reason for Visit Reason Onset Date Comments Results 11/03/2014 Encounter Details Date Type Department Care Team Description 11/03/2014 Telephone Dermatology Chastity Montero, Results 5th Floor, Clinic 5A MD Roland Zavalateen [address] [facility] [address] [facility] [place], [place] [phone] Social History Tobacco Use Types Packs/Day [...] Telephone Encounter - Sagrario Hernandez LPN - 11/03/2014 12:45 PM CDT Notes Recorded by Sagrario Hernandez LPN on 11/03/2014 at 12:41 PM Sent Message via [employer]. Notes Recorded by Chastity Montero MD on 11/03/2014 at 10:15 AM Please let the patient know the biopsy of the forehead was a benign mole like area. The biopsy of the back shows just trauma (probably from the pressure in this area). No signs of infection or cancer. Keep with the current plan documented in this encounter Plan of Treatment Upcoming Encounters Date Type Specialty Care Team Description 11/15/2022 Virtual Visit Pharm Haylie Gonzalez, [facility] [address] [facility] [address] [place] [phone] (Wo rk) 11/15/2022 Virtual Visit IM/Peds Yane Barraza MD [address] [facility] [address] [place] [phone] (Wo rk) 03/03/2023 Virtual Visit Neurology Erlinda Barber MD 420 [facility] 295 [place], [place] [address] (Wo rk) documented as of this encounter Visit Diagnoses Not on filedocumented in this encounter Care Teams Automobile Accessories Installer Relationship Specialty Start Date End Date Lucero Stevenson MD PCP - General Pediatrics 10/11/11 04/22/19 Chastity Montero MD MD Dermatology 09/23/14 [address] [facility] 98 [place], [place] [address] documented as of this encounter
--- OUTSIDE RECORDS SUMMARY | 2022-06-15 13:21 | XMS_ITS | Encounter Summary ---
:1945 Author Organization [facility] Address [address] [place] [address] Care Team Providers Name Role Phone Lucero Stevenson MD Primary Care Provider [phone] Ady Ramos MD Unavailable Reason for Visit Reason Comments Anticoagulation Encounter Details Date Type Department Care Team Description 04/28/2014 [facility] Eag an Anticoagulation Visit 1440 [facility] [place] [phone] Social History [...] encounter Progress Notes Qing Guy RN - 04/28/2014 8:53 AM CDT ANTICOAGULATION FOLLOW-UP CLINIC VISIT Patient Name: Charlette Brush Date: 04/28/2014 Contact Type: Face to Face SUBJECTIVE: Bleeding Signs/Symptoms: None Thromboembolic Signs/Symptoms: None Medication Changes: She is on day 7 of a 14 day prescription for doxycycline. Doxycycline did not effect INR when she took it in 2010 either. Dietary Changes: No Bacterial/Viral Infection: No Missed Coumadin Doses: None Other Concerns: No ASSESSMENT/PLAN: See: ANTICOAGULATION QIC flow sheet. INR Today: 2.5 Current Warfarin Dose: 60 mg in the past 7 days INR Goal: 2.0-3.0 New Warfarin Dose: same, 10mg MWF, 7.5mg TTSS = 60 Next INR in: 2 weeks Written instructions given to patient. ANTICOAGULATION CLINIC Qing Guy RN documented in this encounter Plan of Treatment Upcoming Encounters Date Type Specialty Care Team Description 11/15/2022 Virtual Visit Pharm Haylie Gonzalez, [facility] [address] [facility] [address] (Lena max) 11/15/2022 Virtual Visit IM/Peds Yane Barraza MD 3[address] [facility] [place] [address] (Lena max) 03/03/2023 Virtual Visit Neurology Erlinda Barber MD 420 [facility] 295 [place] [address] (Lena max) documented as of this encounter Procedures Procedure Name Priority Date/Time Associated Diagnosis Comme nts INR POINT OF CARE Routine 04/28/2014 terminal manager 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 documented in this encounter Results INR point of care (04/28/2014) P athologist Signature INR Point of 2.5 0.86 - [facility] Care 1.14 LAB Specimen (Source) Anatomical Location Collection Method / Collectio n Time Received Time / Laterality Volume 04/28/2014 Lucero Stevenson MD LAB - BLOOD ORDERABLES Performing Organization Address City/State/ZIP Code Phon e Number [facility] documented in this encounter Visit Diagnoses Diagnosis terminal manager current use of anticoagulant t herapy - Primary documented in this encounter Care Teams Sales Training Representative Relationship Specialty Start Date End Date Lucero Stevenson MD PCP - General Pediatrics 10/11/11 04/22/19 Ady Ramos MD MD Neurological Surgery 11/25/13 06/09/[address] [place] [address] documented as of this encounter
--- OUTSIDE RECORDS SUMMARY | 2022-06-15 13:21 | XMS_ITS | Encounter Summary ---
:1945 Author Organization [facility] Address [address] [place] [address] Care Team Providers Name Role Phone Lucero Stevenson MD Primary Care Provider [phone] Ady Ramos MD Unavailable Reason for Visit Reason Comments Anticoagulation Encounter Details Date Type Department Care Team Description 05/12/2014 [facility] Eag an Anticoagulation Visit 1440 [facility] [place] [address] Social History Tobacco Use [...] encounter Progress Notes Prudence Austin RN - 05/12/2014 10:13 AM CDT ANTICOAGULATION FOLLOW-UP CLINIC VISIT Patient Name: Charlette Brush Date: 05/12/2014 Contact Type: Face to Face SUBJECTIVE: Bleeding Signs/Symptoms: None Thromboembolic Signs/Symptoms: None Medication Changes: No Dietary Changes: No Bacterial/Viral Infection: No Missed Coumadin Doses: None Other Concerns: No ASSESSMENT/PLAN: See: ANTICOAGULATION QIC flow sheet. INR Today: 1.8 Current Warfarin Dose: 60mg in the past 7 days Range: Sub Therapeutic INR Goal: 2.0-3.0 New Warfarin Dose: 10mg MTu, then 10mg MWF, 7.5mg TTSS = 60mg/wk Next INR in: 2 weeks [facility] ANTICOAGULATION CLINIC Prudence Austin RN documented in this encounter Plan of Treatment Upcoming Encounters Date Type Specialty Care Team Description 11/15/2022 Virtual Visit Pharm Haylie Gonzalez, [facility] [address] [facility] [address] [place] [phone] (Lena max) 11/15/2022 Virtual Visit IM/PedYane Muir MD [address] [facility] [place] [phone] (Lena max) 03/03/2023 Virtual Visit Neurology Erlinda Barber MD 420 [facility] 295 [place], [place] [phone] (Lena max) documented as of this encounter Procedures Procedure Name Priority Date/Time Associated Diagnosis Comme nts INR POINT OF CARE Routine 05/12/2014 truck terminal manager 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 documented in this encounter Results (ABNORMAL) INR point of care (05/12/2014) P athologist Signature INR Point of 1.8 (A) 0.86 - [facility] Care 1.14 LAB Specimen (Source) Anatomical Location Collection Method / Collectio n Time Received Time / Laterality Volume 05/12/2014 Lucero Stevenson MD LAB - BLOOD ORDERABLES Performing Organization Address City/State/ZIP Code Phon e Number [facility] documented in this encounter Visit Diagnoses Diagnosis truck terminal manager current use of anticoagulant t herapy - Primary documented in this encounter Care Teams Order Taker Relationship Specialty Start Date End Date Lucero Stevenson MD PCP - General Pediatrics 10/11/11 04/22/19 Ady Ramos MD MD Neurological Surgery 11/25/13 06/09/[address] [place] [address] documented as of this encounter
--- OUTSIDE RECORDS SUMMARY | 2022-06-15 13:21 | XMS_ITS | Encounter Summary ---
:1945 Author Organization [place] Address [address] [place] [address] Care Team Providers Name Role Phone Joe Knox MD Primary Care Provider [phone] Reason for Visit Reason Comments Insomnia sleeping issues, having disc omfort in upper abdomen and back when pt is sleeping Encounter Details Date Type Department Care Team Description 06/18/2014 Office Visit [facility] Joe Knox itis (Primary Dx); Yarelis Littlejohn MD Screen for colon cancer 1440 [facility]3] [place] [phone] 78[address] [facility] [phone] [place], [place] [address] (Wo rk) Social History Tobacco Use [...] Sign Reading Time Taken Comments Blood Pressure 122/74 06/18/2014 10:38 AM TARE WEIGHER Pulse 68 06/18/2014 10:38 AM TARE WEIGHER Temperature 37 ??C (98.6 ??F) 06/18/2014 10:38 AM TARE WEIGHER Respiratory Rate - - Oxygen Saturation 96% 06/18/2014 10:38 AM TARE WEIGHER Inhaled Oxygen Concentration - - Weight 182.3 kg (402 lb) 06/18/2014 10:38 AM TARE WEIGHER Height 167.6 cm (5' 6) 06/18/2014 10:38 AM TARE WEIGHER Body Mass Index 64.88 06/18/2014 10:38 AM TARE WEIGHER documented in this encounter Progress Notes Joe Knox MD - 06/18/2014 10:33 AM CST SUBJECTIVE: Charlette Brush is a 69 year old female who presents to clinic today for the following health issues: Abdominal and back discomfort when pt sleeping ?? Duration: sx startted Monday night over to Monday ?? Description (location/character/radiation): upper abdomen and back, shoulder discomfort while sleeping ?? Intensity: moderate ?? Accompanying signs and symptoms: interrupts pt's sleeping ?? History (similar episodes/previous evaluation): pt had this issue 2 years ago when she was takingibuprofen ?? Precipitating or alleviating factors: None ?? Therapies tried and outcome: pt tried sleeping with more pillows and changing sleep position 1) waking in the night with pressure under the diaphragm, up into bilateral chest and radiating intoupper back. Takes 1-2 hrs to get comfortable enough to go back to sleep. No nausea or vomiting. Described as an achy dull pain, uncomfortable. Not relieved by change in position. Started Monday night, has occurred each night. Pain is similar to when she was taking ibuprofen in the past. Was hospitalized at that time to r/o heart problems, got better with omeperazole. No diet changes, no ibuprofen, motrin or aspirin. Does take tylenol prn. Has lost 22 lbs since January, is working on diet. No pain when active during the day, no sob or diaphoresis with pain. Problem list and histories reviewed & adjusted, as indicated. Additional history: as documented Problem list, Medication list, Allergies, and Medical/Social/Surgical histories reviewed in EPIC andupdated as appropriate. ROS: C: NEGATIVE for fever, chills, change in weight E/M: NEGATIVE for ear, mouth and throat problems R: NEGATIVE for significant cough or SOB CV: NEGATIVE for chest pain, palpitations or peripheral edema OBJECTIVE: BP 122/74 Pulse 68 Temp(Src) 98.6 ??F (37 ??C) (Tympanic) Ht 5' 6 (1.676 m) Wt 402 lb (182.346 kg) BMI 64.92 kg/m2 SpO2 96% Body mass index is 64.92 kg/(m^2). GENERAL: alert, well nourished, well hydrated, no distress HENT: ear canals- normal; TMs- normal; Nose- normal; Mouth- no ulcers, no lesions NECK: no tenderness, no adenopathy, no asymmetry, no masses, no stiffness; RESP: lungs clear to auscultation - no rales, no rhonchi, no wheezes CV: regular rates and rhythm, normal S1 S2, no S3 or S4 and no murmur, no click or rub - ABDOMEN: soft, no tenderness, normal bowel sounds. Unable to assess for masses/hsm due to morbid obesity. ASSESSMENT/PLAN: (535.50) Gastritis (primary encounter diagnosis) -symptoms most consistent with GERD/gastritis but no obvious trigger -check stool h pylori- can start prilosec after stool collected -bland diet for now, elevated head of bed, avoid caffeine, doesn't drink etoh or take nsaids Plan: H Pylori antigen stool, omeprazole (PRILOSEC) 40 MG capsule (V76.51) Screen for colon cancer -they were unable to complete last colonoscopy- will do FIT testing Plan: Fecal colorectal cancer screen (FIT) Follow up with Provider - by mychart in a week, sooner if worsening JOE KNOX MD [facility] documented in this encounter Nursing Notes Bee Hensley Y, COUNSELING DIRECTOR - 06/18/2014 10:41 AM CST Chief Complaint Patient presents with ??? Insomnia sleeping issues, having discomfort in upper abdomen and back when pt is sleeping Initial BP 122/74 Pulse 68 Temp(Src) 98.6 ??F (37 ??C) (Tympanic) Ht 5' 6 (1.676 m) Wt 402 lb (182.346 kg) BMI 64.92 kg/m2 SpO2 96% Estimated body mass index is 64.92 kg/(m^2) as calculated from the following: Height as of this encounter: 5' 6 (1.676 m). Weight as of this encounter: 402 lb (182.346 kg). BP completed using cuff size: large-Radial BP taken Bee Hensley CMA WEIGHER documented in this encounter Plan of Treatment Upcoming Encounters Date Type Specialty Care Team Description 11/15/2022 Virtual Visit Pharm D Haylie Cheung, [facility] [address] [facility] [address] [place] [phone] (Wo rk) 11/15/2022 Virtual Visit [place] [address] [place] [address] [place] [id number] (Wo rk) 03/03/2023 Virtual Visit Neurology Erlinda Barber MD [address] [facility] 295 [place] [address] (Wo rk) documented as of this encounter Results H Pylori antigen stool (06/21/2014 7:00 PM TARE WEIGHER) Component Value Ref Test Analysis Performed At [facility] Method Time Signature Specimen Feces [place] [facility] H Pylori Negative for Helicobacter py armando [...] Stool specimen 06/21/2014 7:00 PM 014 (specimen) TARE WEIGHER 11:54 AM TARE WEIGHER Joe Knox MD LAB - STOOLS ORDERABLES Performing Organization Address City/State/ZIP Code Phon e Number [address] [address] [facility] MICROBIOLOGY Fecal colorectal cancer screen (FIT) (06/20/2014 9:00 AM TARE WEIGHER) Analysis Performed At Patho logist Time Signature Occult Blood Negative NEG [facility] Scn FIT [facility] LABS Specimen Anatomical Collection Method Collection Time Receive d Time (Source) Location / / Volume Laterality Stool specimen 06/20/2014 9:00 AM 014 (specimen) TARE WEIGHER 11:26 AM TARE WEIGHER Joe Knox MD LAB - STOOLS ORDERABLES Performing Organization Address City/[facility] Code Phon e Number [facility] [address] [place] [address] [facility] documented in this encounter Visit Diagnoses Diagnosis Gastritis - Primary Unspecified gastritis and gastroduodenit is without mention of hemorrhage Screen for colon cancer Special screening for malignant neoplasm s, colon documented in this encounter Care Teams Blending Operator Relationship Specialty Start Date End Date Joe Knxo MD PCP - General Pediatrics 10/11/11 04/22/19 documented as of this encounter
--- OUTSIDE RECORDS SUMMARY | 2022-06-15 13:21 | XMS_ITS | Encounter Summary ---
:1945 Author Organization [facility] Address [address] [place] [address] Care Team Providers Name Role Phone Lucero Stevenson MD Primary Care Provider [phone] Encounter Details Date Type Department Care Team Description 06/20/2014 Orders Only [facility] Eag an Screen for colon cancer 14[address] [facility] [place] [address] Social [...] 11/15/2022 Virtual Visit Haylie Wakefield, [facility] [address] [facility] [address] [place], [place] [phone] (Wo rk) 11/15/2022 Virtual Visit IM/Peds Yane Braraza MD [address] [facility] [place] [address] (Wo rk) 03/03/2023 Virtual Visit Neurology Erlinda Barber MD [address] [facility] [address] [place] [address] (Wo rk) documented as of this encounter Procedures Procedure Name Priority Date/Time Associated Comments Diagnosis FECAL COLORECTAL Routine 06/20/2014 9:00 AM Screen for colon R esults for this CANCER SCREEN FIT BOTTOM FINISHER cancer procedure are in the results section. documented in this encounter Results Fecal colorectal cancer screen (FIT) (06/20/2014 9:00 AM BOTTOM FINISHER) Analysis Performed At Patho logist Time Signature Occult Blood Negative NEG [facility] Scn FIT [facility] LABS Specimen Anatomical Collection Method Collection Time Receive d Time (Source) Location / / Volume Laterality Stool specimen 06/20/2014 9:00 AM 014 (specimen) BOTTOM FINISHER 11:26 AM BOTTOM FINISHER Lucero Stevenson MD LAB - STOOLS ORDERABLES Performing Organization Address City/State/ZIP Code Phon e Number [id number] [place] [address] LABS documented in this encounter Visit Diagnoses Diagnosis Screen for colon cancer Special screening for malignant neoplasm s, colon documented in this encounter Care Teams Docking Pilot Relationship Specialty Start Date End Date Lucero Stevenson MD PCP - General Pediatrics 10/11/11 04/22/19 documented as of this encounter
--- OUTSIDE RECORDS SUMMARY | 2022-06-15 13:21 | XMS_ITS | Encounter Summary ---
:1945 Author Organization [place] Address [address] [place] [address] Care Team Providers Name Role Phone Lucero Stevenson MD Primary Care Provider [phone] Ady Ramos MD Unavailable Reason for Visit Reason Onset Date Comments Patient Request 05/01/2014 Encounter Details Date Type Department Care Team Description 05/01/2014 Telephone Dermatology Chastity Montero Patient Request 5th Floor, Clinic 5A MD [facility] [address] [facility] [address] [facility] [place], [place] [phone] Social History Tobacco Use [...] encounter Miscellaneous Notes Telephone Encounter - Kim Persaud MA - 05/01/2014 5:44 PM CDT Patient had medication question about her dropping two capsules of her doxycycline down the drain, per the Resident who prescribed the medication, her missing the two capsules should not affect her. I spoke with patient and gave her the message, left her Sagrario's number of [phone] in case she have further questions. documented in this encounter Plan of Treatment Upcoming Encounters Date Type Specialty Care Team Description 11/15/2022 Virtual Visit Pharm Haylie Gonzalez, [facility] [address] [facility] [address] [place], [place] [phone] (Wo rk) 11/15/2022 Virtual Visit IM/Yane Mathias MD [address] [facility] [address] [place] [phone] (Wo rk) 03/03/2023 Virtual Visit Neurology Erlinda Barber MD 420 [facility] 295 [place], [place] [address] (Wo rk) documented as of this encounter Visit Diagnoses Not on filedocumented in this encounter Care Teams Narrow Fabrics Weaver Relationship Specialty Start Date End Date Lucero Stevenson MD PCP - General Pediatrics 10/11/11 04/22/19 Ady Ramos MD MD Neurological Surgery 11/25/13 06/09/[address] [address] [place], [place] [address] documented as of this encounter
--- OUTSIDE RECORDS SUMMARY | 2022-06-15 13:21 | XMS_ITS | Encounter Summary ---
:1945 Author Organization [place] Address [address] [place] [address] Care Team Providers Name Role Phone Lucero Stevenson MD Primary Care Provider [phone] Reason for Visit Reason Comments Anticoagulation Encounter Details Date Type Department Care Team Description 07/24/2014 Allied Health/[facility]urse [facility] Eag an Anticoagulation Visit 14[address] [facility] [place] [address] Social History Tobacco Use [...] encounter Progress Notes Prudence Austin RN - 07/24/2014 1:35 PM CST ANTICOAGULATION FOLLOW-UP CLINIC VISIT Patient Name: Charlette Brush Date: 07/24/2014 Contact Type: Face to Face SUBJECTIVE: Bleeding Signs/Symptoms: None Thromboembolic Signs/Symptoms: None Medication Changes: No Dietary Changes: No Bacterial/Viral Infection: No Missed Coumadin Doses: None Other Concerns: No ASSESSMENT/PLAN: See: ANTICOAGULATION QIC flow sheet. [facility] ANT[facility]ATION CLINIC AL FUND SALES AGENT documented in this encounter Plan of Treatment Upcoming Encounters Date Type Specialty Care Team Description 11/15/2022 Virtual Visit Pharm Haylie Gonzalez, [facility] [address] [facility] [address] [place], [place] [phone] (Wo rk) 11/15/2022 Virtual Visit IM/Peds Yane Barraza MD [address] [facility] [address] [place] [phone] (Wo rk) 03/03/2023 Virtual Visit Neurology Erlinda Barber MD [address] [facility] 295 [place], [place] [phone] (Wo rk) documented as of this encounter Procedures Procedure Name Priority Date/Time Associated Diagnosis Comme nts INR POINT OF CARE Routine 07/24/2014 retirement 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 documented in this encounter Results INR point of care (07/24/2014) P athologist Signature INR Point of 2.6 0.86 - [facility] Care 1.14 LAB Specimen (Source) Anatomical Location Collection Method / Collectio n Time Received Time / Laterality Volume 07/24/2014 Lucero Stevenson MD LAB - BLOOD ORDERABLES Performing Organization Address City/State/ZIP Code Phon e Number [facility] documented in this encounter Visit Diagnoses Diagnosis intermodal customer service current use of anticoagulant t herapy - Primary documented in this encounter Care Teams Foot Tender Relationship Specialty Start Date End Date Lucero Stevenson MD PCP - General Pediatrics 10/11/11 04/22/19 documented as of this encounter
--- OUTSIDE RECORDS SUMMARY | 2022-06-15 13:21 | XMS_ITS | Encounter Summary ---
:1945 Author Organization [place] Address [address] [place] [address] Care Team Providers Name Role Phone Lucero Stevenson MD Primary Care Provider [phone] Ady Ramos MD Unavailable Reason for Visit Reason Onset Date Comments Medication Change 04/21/2014 Started on doxycycli ne Anticoagulation 04/21/2014 Encounter Details Date Type Department Care Team Description 04/21/2014 Telephone [facility] Lucero Stevenson Medic ation Change Yarelis Littlejohn MD (Started on doxycycline 1440 [facility] ); Anticoagulation [place] [phone] [address] [facility] [phone] [place], [place] [address] (Wo rk) Social History [...] Telephone Encounter - Prudence Austin RN - 04/23/2014 2:35 PM CDT INR appt scheduled on 04/28/14 as suggested. Telephone Encounter - Qing Guy RN - 04/22/2014 4:44 PM CDT Called and left a message on her voicemail. She should have her INR checked sooner than her scheduled time on 05/12/14. She likes to come on Mondays and she could come in on Monday04/28/14, or sooner if she wants to. She was on doxycycline for 10 days in 2010 and it did not effect her INR. Qing Guy RN Telephone Encounter - Temi Rodriguez RN - 04/21/2014 8:52 AM CDT Patient calling reporting that yesterday 04/20 she was started on Doxycycline 100mg twice daily for 2weeks by her layout man for infection. She was advised to have her INR monitored more closely with this medication. Per Susie INR nurse ok to wait until tomorrow 04/22 for INR clinic to address. Patient aware she will here back tomorrow. Patient can be reached back at [phone] with response/plan, ok to LM. documented in this encounter Plan of Treatment Upcoming Encounters Date Type Specialty Care Team Description 11/15/2022 Virtual Visit Haylie Wakefield, [facility] [address] [facility] [address] [place], [place] [phone] (Wo rk) 11/15/2022 Virtual Visit IM/Peds Yane Barraza MD [address] [facility] [place] [address] (Wo rk) 03/03/2023 Virtual Visit Neurology Erlinda Barber MD [address] [facility] 295 [place] [address] (Wo rk) documented as of this encounter Visit Diagnoses Not on filedocumented in this encounter Care Teams Software Configuration Manager Relationship Specialty Start Date End Date Lucero Stevenson MD PCP - General Pediatrics 10/11/11 04/22/19 Ady Ramos MD MD Neurological Surgery 11/25/13 06/09/[address] [place] [address] documented as of this encounter
--- OUTSIDE RECORDS SUMMARY | 2022-06-15 13:21 | XMS_ITS | Encounter Summary ---
:1945 Author Organization [place] Address [address] [place] [address] Care Team Providers Name Role Phone Lucero Stevenson MD Primary Care Provider [phone] Reason for Visit Reason Onset Date Comments Refill Request 06/18/2014 OMEPRAZOLE 40MG Encounter Details Date Type Department Care Team Description 06/18/2014 Refill [facility] Lucero Stevenson Refill Request 1440 [facility] MD Annetta (OMEPRAZOLE 40MG) [place] [phone] [facility] [phone] 8675 [place], [place] [address] (Wo rk) Social History [...] Telephone Encounter - Bee Hensley CMA - 06/19/2014 10:11 AM CST Inform pt Rx sent, she is aware. Bee Hensley CMA N RESOURCES SUPERVISOR Telephone Encounter - Lucero Stevenson MD - 06/19/2014 10:05 AM HUMAN RESOURCES SUPERVISOR No, not planning on it being a permanent med. Lucero Stevenson MD N RESOURCES SUPERVISOR Telephone Encounter - Jennifer Fernández RN - 06/19/2014 9:47 AM CST Do you want to give 90 days supply? Jennifer Fernández RN, BSN N RESOURCES SUPERVISOR Telephone Encounter - Patience [place] - 06/18/2014 4:35 PM CST Refill request for: OMEPRAZOLE 40 mg Last prescribed by provider: Date: 06/18/2014 Quantity 30 w/ 1 refills Last filled through pharmacy: Date: NA Pharmacy Comments: PT REQUESTING 90 DAY SUPPLY Patience [place] RT(R) N RESOURCES SUPERVISOR documented in this encounter Plan of Treatment Upcoming Encounters Date Type Specialty Care Team Description 11/15/2022 Virtual Visit Pharm D Haylie Cheung, [facility] [address] [facility] [place] [address] (Wo winter) 11/15/2022 Virtual Visit [place] [address] [place] [address] [place] [phone] (Wo winter) 03/03/2023 Virtual Visit Neurology Erlinda Barber MD 420 [facility] 295 [place], [place] [address] (Wo rk) documented as of this encounter Visit Diagnoses Diagnosis Gastritis Unspecified gastritis and gastroduodenit is without mention of hemorrhage documented in this encounter Care Teams Ob Gyn Relationship Specialty Start Date End Date Lucero Stevenson MD PCP - General Pediatrics 10/11/11 04/22/19 documented as of this encounter
--- OUTSIDE RECORDS SUMMARY | 2022-06-15 13:21 | XMS_ITS | Encounter Summary ---
:1945 Author Organization [facility] Address [address] [place] [address] Care Team Providers Name Role Phone Lucero Stevenson MD Primary Care Provider [phone] Reason for Visit Reason Comments Anticoagulation Encounter Details Date Type Department Care Team Description 08/21/2014 Allied Health/[facility]urse [facility] Eag an Anticoagulation Visit 1440 [facility] [place] [address] Social History Tobacco [...] encounter Progress Notes Qing Guy RN - 08/21/2014 9:58 AM CST ANTICOAGULATION FOLLOW-UP CLINIC VISIT Patient Name: Charlette Brush Date: 08/21/2014 Contact Type: Face to Face SUBJECTIVE: Bleeding Signs/Symptoms: None Thromboembolic Signs/Symptoms: None Medication Changes: No Dietary Changes: No Bacterial/Viral Infection: No Missed Coumadin Doses: None Other Concerns: No ASSESSMENT/PLAN: See: ANTICOAGULATION QIC flow sheet. INR Today: 2.5 Current Warfarin Dose: 65 mg in the past 7 days INR Goal: 2.0-3.0 New Warfarin Dose: same, 7.5mg MF, 10mg TWTSS = 65 Next INR in: 5 weeks Written instructions given to patient. [facility]IC Qing Guy RN TAL RESEARCH ANALYST documented in this encounter Plan of Treatment Upcoming Encounters Date Type Specialty Care Team Description 11/15/2022 Virtual Visit Pharm Haylie Gonzalez, [facility] [address] [facility] [address] [place], [place] [phone] (Wo rk) 11/15/2022 Virtual Visit [place] [address] [place] [address] [place] [phone] (Wo rk) 03/03/2023 Virtual Visit Neurology Erlinda Barber MD 420 [facility] 295 [place], [place] [phone] (Wo rk) documented as of this encounter Procedures Procedure Name Priority Date/Time Associated Diagnosis Comme nts INR POINT OF CARE Routine 08/21/2014 watermelon inspector 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 documented in this encounter Results INR point of care (08/21/2014) P athologist Signature INR Point of 2.5 0.86 - [facility] Care 1.14 LAB Specimen (Source) Anatomical Location Collection Method / Collectio n Time Received Time / Laterality Volume 08/21/2014 Lucero Stevenson MD LAB - BLOOD ORDERABLES Performing Organization Address City/State/ZIP Code Phon e Number [facility] documented in this encounter Visit Diagnoses Diagnosis senior living current use of anticoagulant t herapy - Primary documented in this encounter Care Teams Armorer Technician Relationship Specialty Start Date End Date Lucero Stevenson MD PCP - General Pediatrics 10/11/11 04/22/19 documented as of this encounter
--- OUTSIDE RECORDS SUMMARY | 2022-06-15 13:21 | XMS_ITS | Encounter Summary ---
:1945 Author Organization [place] Address [address] [place] [address] Care Team Providers Name Role Phone Lucero Stevenson MD Primary Care Provider [phone] Ady Ramos MD Unavailable Reason for Visit Reason Comments Anticoagulation Encounter Details Date Type Department Care Team Description 06/03/2014 Allied Health/[facility] Eag an Anticoagulation Visit [address] [...] - Inhaled Oxygen - - Concentration Weight 183 kg (403 lb 6.4 05/29/2014 2:35 PM Weighed at Weight oz) HYDRAULIC PRESS IN OPERATOR Watchers Height - - Body Mass Index 65.14 01/21/2014 2:00 PM CDT documented in this encounter Progress Notes Qing Guy RN - 06/03/2014 2:29 PM CST ANTICOAGULATION FOLLOW-UP CLINIC VISIT Patient Name: Charlette Brush Date: 06/03/2014 Contact Type: Face to Face SUBJECTIVE: Bleeding Signs/Symptoms: None Thromboembolic Signs/Symptoms: None Medication Changes: No Dietary Changes: She has lost almost 20 pounds on Weight Watchers since March. Bacterial/Viral Infection: No Missed Coumadin Doses: None Other Concerns: No ASSESSMENT/PLAN: See: ANTICOAGULATION QIC flow sheet. INR Today: 1.5 Current Warfarin Dose: 60 mg in the past 7 days INR Goal: 2.0-3.0 New Warfarin Dose: 7.5mg MF, 10mg TWTSS = 65 Next INR in: 2 weeks Written instructions given to patient. ANTICOAGULATION CLINIC Qing Guy RN AULIC PRESS IN OPERATOR documented in this encounter Plan of Treatment Upcoming Encounters Date Type Specialty Care Team Description 11/15/2022 Virtual Visit Pharm Haylie Gonzalez, [facility] 1440 [facility] [place] [phone] (Lena max) 11/15/2022 Virtual Visit [place] [address] [place] [address] [place] [phone] (Lena max) 03/03/2023 Virtual Visit Neurology Erlinda Barber MD 420 [facility] 295 [place], [place] [address] (Lena max) documented as of this encounter Procedures Procedure Name Priority Date/Time Associated Diagnosis Comme nts INR POINT OF CARE Routine 06/03/2014 [facility] 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 documented in this encounter Results (ABNORMAL) INR point of care (06/03/2014) P athologist Signature INR Point of 1.5 (A) 0.86 - [facility]ILL[facility] Care 1.14 LAB Specimen (Source) Anatomical Location Collection Method / Collectio n Time Received Time / Laterality Volume 06/03/2014 Lucero Stevenson MD LAB - BLOOD ORDERABLES Performing Organization Address City/State/ZIP Code Phon e Number [facility] documented in this encounter Visit Diagnoses Diagnosis [facility] current use of anticoagulant t herapy - Primary documented in this encounter Care Teams Entertainment & Media Correspondent Relationship Specialty Start Date End Date Lucero Stevenson MD PCP - General Pediatrics 10/11/11 04/22/19 Ady Ramos MD MD Neurological Surgery 11/25/13 06/09/[address] [facility] 106 [place] [address] documented as of this encounter
--- OUTSIDE RECORDS SUMMARY | 2022-06-15 13:22 | XMS_ITS | Encounter Summary ---
:1945 Author Organization [place] Address [address] [place] [address] Care Team Providers Name Role Phone Lucero Knox MD Primary Care Provider [phone] Ady Ramos MD Unavailable Reason for Visit Reason Onset Date Comments Refill Request 02/16/2014 LOSARTAN 100MG TABS, TRIAMTERENE 37.5MG/HCTZ 25MG CAPS, ATENOLOL 25MG TABS Encounter Details Date Type Department Care Team Description 02/16/2014 Refill [facility] Eag an Lucero Knox Refill Request 1440 [facility] MD Annetta (LOSARTAN 100MG TABS, [place] [address] [facility] TRIAMTERENE 37.5MG/HCTZ [phone] 25MG CAPS, ATENOLOL [place], [place] [address] 25MG TABS) [phone] (Wo rk) Social History Tobacco Use Types [...] Telephone Encounter - Danni Marcus, RN - 02/19/2014 7:57 AM CDT All 3 of these medications were ordered on 12/24/13 for a 3 month supply with 3 additional refills. Ashli Marcus RN Telephone Encounter - Aguilar Wheeler - 02/18/2014 4:03 PM CDT Refill request for:ATENOLOL 25 MG Last rx'd by provider: LUCERO KNOX #180 w/ 3 refills Last filled through pharmacy: 11/16/13 #180 Pharmacy Comments: NONE Refill request for: TRIAMTERENE 37.5MG/HCTZ 25MG CAPS Last rx'd by provider: LUCERO KNOX #90 w/ 3 refills Last filled through pharmacy: 11/16/13 #90 Pharmacy Comments: NONE Refill request for: LOSARTAN 100 mg TABS Last rx'd by provider: LUCERO KNXO #90 w/ 3 refills Last filled through pharmacy: 11/16/13 #90 Pharmacy Comments: NONE documented in this encounter Plan of Treatment Upcoming Encounters Date Type Specialty Care Team Description 11/15/2022 Virtual Visit Pharm D Haylie Cheung, [facility] 1440 [facility] [place] [address] (Lena max) 11/15/2022 Virtual Visit IM/Yane Mathias MD 2069 [facility] [place] [phone] (Lena max) 03/03/2023 Virtual Visit Neurology Erlinda Barber MD 420 [facility] 295 [place] [address] (Wo rk) documented as of this encounter Visit Diagnoses Diagnosis Essential hypertension, benign documented in this encounter Care Teams Appliquer Relationship Specialty Start Date End Date Lucero Knox MD PCP - General Pediatrics 10/11/11 04/22/19 Ady Ramos MD MD Neurological Surgery 11/25/13 06/09/14 [address] [facility] 106 [place] [address] documented as of this encounter
--- OUTSIDE RECORDS SUMMARY | 2022-06-15 13:22 | XMS_ITS | Encounter Summary ---
:1945 Author Organization [place] Address [address] [place] [address] Care Team Providers Name Role Phone Lucero Stevenson MD Primary Care Provider [phone] Reason for Referral Specialty Diagnoses / Procedures Referred By Contact Refer red To Contact Lucero Stevenson MD [address] [address] Referral ID Status Reason Start Date Expiration Date Visits Requ ested Visits Authorized Scheduling Instructions ANTICOAGULATION CLINIC COLLABORATIVE PRA CTICE AGREEMENT The following represents a collaborative practice agreement among the physicians of the Clinic and staff of the Anticoagulat ion Clinic Service ([facility]) Physicians shall: 1. Refer patients requiring anticoagulat ion to a specialty service staffed by personnel of Pharmacy Services and super vised by Clinic physicians. 2. Respond to questions and referrals fr pharmacy staff regarding delinquent or difficult patients. 3. Inform the [facility] staff when a new patie nt [...] of adverse or sub-therapeutic effects including at [facility] the following: Has the patient experienced any [...] for Visit Reason Onset Date Comments Referral 10/29/2013 INR Clinic Encounter Details Date Type Department Care Team Description 10/29/2013 Telephone [facility] Lucero Willard Referral (INR Clinic) [address] [place] [address] [place] [address] [facility] [phone] 8675 [place], [place] [address] (Wo rk) Social History [...] Telephone Encounter - Qing Guy, RN - 10/29/2013 8:53 AM CDT Reimbursement rules require all INR Clinic patients to have a yearly renewal of an INR Clinic Referral order. Referral must be signed by the PCP for each patient. Nurses cannot sign these referral orders. Please route this telephone encounter back to the INR pool (p [id number]) when referral completed. Qing Guy RN documented in this encounter Plan of Treatment Upcoming Encounters Date Type Specialty Care Team Description 11/15/2022 Virtual Visit Pharm Haylie Gonzalez, [facility] [address] [facility] [address] [place] [phone] (Wo rk) 11/15/2022 Virtual Visit IM/Peds Yane Barraza MD [address] [facility] [address] [place] [phone] (Wo rk) 03/03/2023 Virtual Visit Neurology Erlinda Barber MD 420 [facility] 295 [place] [address] (Wo rk) Scheduled Referrals Name Type Priority Associated Diagnoses Order S chedule INR CLINIC REFERRAL Referral Routine Other pulmonary embol ism Ordered: 10/29/2013 and infarction detention (current) use of anticoagulants documented as of this encounter Visit Diagnoses Diagnosis Other pulmonary embolism and infarction - Primary detention (current) use of anticoagulant s Long-term (current) use of anticoagulant s documented in this encounter Care Teams Line Installer Relationship Specialty Start Date End Date Lucero Stevenson MD PCP - General Pediatrics 10/11/11 04/22/19 documented as of this encounter
--- OUTSIDE RECORDS SUMMARY | 2022-06-15 13:22 | XMS_ITS | Encounter Summary ---
:1945 Author Organization [place] Address [address] [place] [address] Care Team Providers Name Role Phone Lucero Stevenson MD Primary Care Provider [phone] Reason for Visit Reason Comments Anticoagulation Encounter Details Date Type Department Care Team Description 09/10/2013 Allied Health/Nurse [facility] Eag an Anticoagulation Visit 1440 [facility] [place] [address] Social History Tobacco [...] encounter Progress Notes Prudence Austin RN - 09/10/2013 10:08 AM CST ANTICOAGULATION FOLLOW-UP CLINIC VISIT Patient Name: Charlette Brush Date: 09/10/2013 Contact Type: Face to Face SUBJECTIVE: Bleeding Signs/Symptoms: None Thromboembolic Signs/Symptoms: None Medication Changes: No Dietary Changes: No Bacterial/Viral Infection: No Missed Coumadin Doses: None Other Concerns: No ASSESSMENT/PLAN: See: ANTICOAGULATION QIC flow sheet. INR Today: 2.9 Current Warfarin Dose: 60mg in the past 7 days Range: Therapeutic INR Goal: 2.0-3.0 New Warfarin Dose: same, 10mg MWF, 7.5mg TTSS = 60mg/wk Next INR in: 4 weeks EA ANTICOAGULATION CLINIC Prudence Austin RN TMENT MANAGER documented in this encounter Plan of Treatment Upcoming Encounters Date Type Specialty Care Team Description 11/15/2022 Virtual Visit Pharm Haylie Gonzalez, [facility] [address] [place] [phone] (Wo rk) 11/15/2022 Virtual Visit [place] [address] [place] [address] [place] [phone] (Wo rk) 03/03/2023 Virtual Visit Neurology Erlinda Barber MD 420 [facility] 295 [place], [place] [address] (Wo rk) documented as of this encounter Procedures Procedure Name Priority Date/Time Associated Diagnosis Comme nts INR POINT OF CARE Routine 09/10/2013 skilled nursing (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 documented in this encounter Results INR point of care (09/10/2013) P athologist Signature INR Point of 2.9 0.86 - [facility]ILL[facility] Care 1.14 LAB Lucero Stevenson MD LAB - BLOOD ORDERABLES Performing Organization Address City/State/ZIP Code Phon e Number [facility] documented in this encounter Visit Diagnoses Diagnosis Other pulmonary embolism and infarction - Primary skilled nursing (current) use of anticoagulant s Long-term (current) use of anticoagulant s documented in this encounter Care Teams Technical Assoc Relationship Specialty Start Date End Date Lucero Stevenson MD PCP - General Pediatrics 10/11/11 04/22/19 documented as of this encounter
--- OUTSIDE RECORDS SUMMARY | 2022-06-15 13:22 | XMS_ITS | Encounter Summary ---
:1945 Author Organization [place] Address [address] [place] [address] Care Team Providers Name Role Phone Lucero Stevenson MD Primary Care Provider Ady Ramos MD Unavailable Reason for Visit Reason Comments Anticoagulation Encounter Details Date Type Department Care Team Description 11/25/2013 Allied Health/[facility] Eag an Anticoagulation Visit [address] [employer] [employer] [place] [address] Social History Tobacco Use [...] encounter Progress Notes Qing Guy RN - 11/25/2013 9:42 AM CDT ANTICOAGULATION FOLLOW-UP CLINIC VISIT Patient Name: Charlette Brush Date: 11/25/2013 Contact Type: Face to Face SUBJECTIVE: Bleeding Signs/Symptoms: None Thromboembolic Signs/Symptoms: None Medication Changes: No Dietary Changes: No Bacterial/Viral Infection: No Missed Coumadin Doses: None Other Concerns: No ASSESSMENT/PLAN: See: ANTICOAGULATION QIC flow sheet. INR Today: 2.2 Current Warfarin Dose: 60 mg in the past 7 days Range: Therapeutic INR Goal: 2.0-3.0 New Warfarin Dose: same, 10mg MWF, 7.5mg TTSS = 60 Next INR in: 4 weeks Written instructions given to patient. ANTICOAGULATION CLINIC Qing Guy RN documented in this encounter Plan of Treatment Upcoming Encounters Date Type Specialty Care Team Description 11/15/2022 Virtual Visit Pharm Haylie Gonzalez, 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 documented in this encounter Results INR point of care (11/25/2013) P athologist Signature INR Point of 2.2 0.86 - [facility]ISYS BILLING Care 1.14 LAB Specimen (Source) Anatomical Location Collection Method / Collectio n Time Received Time / Laterality Volume 11/25/2013 Lucero Stevenson MD LAB - BLOOD ORDERABLES Performing Organization Address City/State/ZIP Code Phon e Number [facility] documented in this encounter Visit Diagnoses Diagnosis senior care (current) use of anticoagulant s - Primary Long-term (current) use of anticoagulant s documented in this encounter Care Teams Sanitary Aide Relationship Specialty Start Date End Date Lucero Stevenson MD PCP - General Pediatrics 10/11/11 04/22/19 Ady Ramos MD MD Neurological Surgery 11/25/13 06/09/[address] [place] [address] documented as of this encounter
--- OUTSIDE RECORDS SUMMARY | 2022-06-15 13:22 | XMS_ITS | Encounter Summary ---
:1945 Author Organization [place] Address [address] [place] [address]. [place] [address] Care Team Providers Name Role Phone Lcuero Stevenson MD Primary Care Provider [phone] Reason for Visit Reason Onset Date Comments Refill Request 08/23/2013 Encounter Details Date Type Department Care Team Description 08/23/2013 MyC Refill [facility] Sleep Richard Co MD dylan Refill Request Center [phone] [place] [address] (Wo rk) Social History Tobacco Use Types [...] encounter Miscellaneous Notes Telephone Encounter - Kristine Ramos MD - 08/26/2013 1:17 PM DIVING BOARD ASSEMBLER Message from [facility]: Nette Brooks Aug 26, 2013 10:00 AM Pt needs new RX for DME supplies. Pt has not been seen since 10/2011 at [facility]. Nette Mishra ----- Message ----- From: Nate Marsh LPN Sent: 08/26/2013 7:12 AM To: Nette Brooks Subject: FW: Medication Renewal Request ----- Message ----- From: Charlette Brush Sent: 08/23/2013 5:20 PM To: [facility] Subject: Medication Renewal Request Original authorizing provider: MD Charlette GRAVES would like a refill of the following medications: ORDER FOR DME [KRISTINE RAMOS MD] Preferred pharmacy: [facility] services Comment: need new masks, out of new ones NG BOARD ASSEMBLER documented in this encounter Plan of Treatment Upcoming Encounters Date Type Specialty Care Team Description 11/15/2022 Virtual Visit Pharm D Haylie Cheung, [facility] 1440 [facility] [place] [phone] (Wo rk) 11/15/2022 Virtual Visit IM/Yane Mathias MD 3305 [facility] [place] [phone] (Wo rk) 03/03/2023 Virtual Visit Neurology Erlinda Barber MD 420 [facility] 295 [place] [address] (Wo rk) documented as of this encounter Visit Diagnoses Diagnosis Obstructive sleep apnea (adult) (pediatr ic) - Primary documented in this encounter Care Teams Manager Implementation Relationship Specialty Start Date End Date Lucero Stevenson MD PCP - General Pediatrics 10/11/11 04/22/19 documented as of this encounter
--- OUTSIDE RECORDS SUMMARY | 2022-06-15 13:22 | XMS_ITS | Encounter Summary ---
:1945 Author Organization [facility] Address [address] [place] [address] Care Team Providers Name Role Phone Lucero Stevenson MD Primary Care Provider Reason for Visit Reason Comments Anticoagulation Encounter Details Date Type Department Care Team Description 08/19/2013 Allied Health/Nurse [facility] Eag an Anticoagulation Visit 1440 [facility] [place] [address] Social History Tobacco [...] of this encounter Progress Notes Qing Guy - 08/19/2013 1:18 PM CST ANTICOAGULATION FOLLOW-UP CLINIC VISIT Patient Name: Charlette Brush Date: 08/19/2013 Contact Type: Face to Face SUBJECTIVE: Bleeding Signs/Symptoms: None Thromboembolic Signs/Symptoms: None Medication Changes: No Dietary Changes: No Bacterial/Viral Infection: No Missed Coumadin Doses: None Other Concerns: No ASSESSMENT/PLAN: See: ANTICOAGULATION QIC flow sheet. INR Today: 3.3 Current Warfarin Dose: 60 mg in the past 7 days Range: Supratherapeutic INR Goal: 2.0-3.0 New Warfarin Dose: 5mg MTu, then 5mg MF, 10mg TWTSS = 60 Next INR in: 2 weeks Written instructions given to patient. ANTICOAGULATION CLINIC Qing Guy RN ICAL AIDE TEACHER documented in this encounter Nursing Notes 08/19/2013 9:30 AM CST >> QING GUY Mon Aug 19, 2013 10:01 AM Charlette Velma Brush presents in clinic for INR. Estimated Body mass index is 64.98 kg/(m^2) as calculated from the following: Height as of 05/20/13: 5' 7(1.702 m). Weight as of 05/20/13: 415 lb(188.243 kg). Qing Guy RN documented in this encounter Plan of Treatment Upcoming Encounters Date Type Specialty Care Team Description 11/15/2022 Virtual Visit Pharm Haylie Gonzalez, [facility] [address] [place] [address] (Lena max) 11/15/2022 Virtual Visit [place] [address] [place] [address] [place] [phone] (Lena max) 03/03/2023 Virtual Visit Neurology Erlinda Barber MD 420 [facility] 295 [place], [place] [address] (Lena max) documented as of this encounter Procedures Procedure Name Priority Date/Time Associated Diagnosis Comme nts INR POINT OF CARE Routine 08/19/2013 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 (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 documented in this encounter Results (ABNORMAL) INR point of care (08/19/2013) P athologist Signature INR Point of 3.3 (A) 0.86 - MISYS BILLING Care 1.14 LAB Lucero Stevenson MD LAB - BLOOD ORDERABLES Performing Organization Address City/State/ZIP Code Phon e Number [facility] documented in this encounter Visit Diagnoses Diagnosis 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 frame tender (current) use of anticoagulant s - Primary Long-term (current) use of anticoagulant s Other pulmonary embolism and infarction documented in this encounter Care Teams Mercerizing Range Controller Relationship Specialty Start Date End Date Lucero Stevenson MD PCP - General Pediatrics 10/11/11 04/22/19 documented as of this encounter
--- OUTSIDE RECORDS SUMMARY | 2022-06-15 13:22 | XMS_ITS | Encounter Summary ---
:1945 Author Organization [place] Address [address] [place] [address]. [place] [address] Care Team Providers Name Role Phone Lucero Stevenson MD Primary Care Provider [phone] Ady Ramos MD Unavailable Reason for Visit Reason Onset Date Comments Results 04/17/2014 Encounter Details Date Type Department Care Team Description 04/17/2014 Telephone Dermatology Chastity Montero, Results 5th Floor, Clinic 5A MD Roland Dickens [address] [facility] [address] [facility] [place] [phone] Social History Tobacco Use Types Packs/Day [...] Encounter - Sagrario Hernandez LPN - 04/17/2014 2:36 PM CDT Notes Recorded by Sagrario Hernandez LPN on 04/17/2014 at 2:35 PM Called and left voice mail with statement below, Left my direct line for Charlette Brush to get a hold of me for and further questions or concerns. Notes Recorded by Chastity Montero MD on 04/17/2014 at 8:13 AM Please let the patient know the culture did grow staph and I sent a 2 week course of doxycycline in for her. documented in this encounter Plan of Treatment Upcoming Encounters Date Type Specialty Care Team Description 11/15/2022 Virtual Visit Pharm Haylie Gonzalez, [facility] [address] [facility] [address] [place], [place] [phone] (Wo rk) 11/15/2022 Virtual Visit IM/Peds Yane Barraza MD [address] [facility] [address] [place] [phone] (Wo rk) 03/03/2023 Virtual Visit Neurology Erlinda Barber MD [address] [place] [facility] 295 [place], [place] [address] (Wo rk) documented as of this encounter Visit Diagnoses Not on filedocumented in this encounter Care Teams Inspector Receiving Relationship Specialty Start Date End Date Lucero Stevenson MD PCP - General Pediatrics 10/11/11 04/22/19 Ady Ramos MD MD Neurological Surgery 11/25/13 06/09/[address] [place] 106 [place], [place] [phone] documented as of this encounter
--- OUTSIDE RECORDS SUMMARY | 2022-06-15 13:22 | XMS_ITS | Encounter Summary ---
:1945 Author Organization [facility] Address [address] [place] [address] Care Team Providers Name Role Phone Lucero Stevenson MD Primary Care Provider [phone] Ady Ramos MD Unavailable Reason for Visit Reason Comments Anticoagulation Encounter Details Date Type Department Care Team Description 12/23/2013 Allied Health/Nurse [facility] Eag an Anticoagulation Visit 1440 [facility] [place] [address] Social History Tobacco [...] encounter Progress Notes Qing Guy RN - 12/23/2013 8:52 AM CDT ANTICOAGULATION FOLLOW-UP CLINIC VISIT Patient Name: Charlette Brush Date: 12/23/2013 Contact Type: Face to Face SUBJECTIVE: Bleeding [...] Haylie Gonzalez, [facility] [address] [facility] [address] [place] [phone] (Lena max) 11/15/2022 Virtual Visit IM/PedYane Muir MD 3305 [facility] [place] [phone] (Lena max) 03/03/2023 Virtual Visit Neurology Erlinda Barber MD 420 [facility] 295 [place], [place] [phone] (Lena max) documented as of this encounter Procedures Procedure Name Priority Date/Time Associated Diagnosis Comme nts INR POINT OF CARE Routine 12/23/2013 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 documented in this encounter Results INR point of care (12/23/2013) P athologist Signature INR Point of 2.5 0.86 - MISYS BILLING Care 1.14 LAB Specimen (Source) Anatomical Location Collection Method / Collectio n Time Received Time / Laterality Volume 12/23/2013 Lucero Stevenson MD LAB - BLOOD ORDERABLES Performing Organization Address City/State/ZIP Code Phon e Number [facility] documented in this encounter Visit Diagnoses Diagnosis USP (current) use of anticoagulant s - Primary Long-term (current) use of anticoagulant s documented in this encounter Care Teams Commercial Tire Service Technician Relationship Specialty Start Date End Date Lucero Stevenson MD PCP - General Pediatrics 10/11/11 04/22/19 Ady Ramos MD MD Neurological Surgery 11/25/13 06/09/[address] [place] [address] documented as of this encounter
--- OUTSIDE RECORDS SUMMARY | 2022-06-15 13:22 | XMS_ITS | Encounter Summary ---
:1945 Author Organization [facility] Address [address] [place] [address] Care Team Providers Name Role Phone Lucero Stevenson MD Primary Care Provider [phone] Reason for Visit Reason Comments Anticoagulation Encounter Details Date Type Department Care Team Description 10/08/2013 Allied Health/[facility]urse [facility] Eag an Anticoagulation Visit [address] [facility] [place] [address] Social History Tobacco Use [...] encounter Progress Notes Prudence Austin RN - 10/08/2013 10:08 AM CDT ANTICOAGULATION FOLLOW-UP CLINIC VISIT Patient Name: Charlette Brush Date: 10/08/2013 Contact Type: Face to Face SUBJECTIVE: Bleeding Signs/Symptoms: None Thromboembolic Signs/Symptoms: None Medication Changes: No Dietary Changes: No Bacterial/Viral Infection: No Missed Coumadin Doses: None Other Concerns: No ASSESSMENT/PLAN: See: ANTICOAGULATION QIC flow sheet. ANTICOAGULATION CLINIC Prudence Austin RN documented in this encounter Plan of Treatment Upcoming Encounters Date Type Specialty Care Team Description 11/15/2022 Virtual Visit Pharm Haylie Gonzalez, [facility] [address] [place], [place] [phone] (Wo rk) 11/15/2022 Virtual Visit IM/Peds Yane Barraza MD [address] [facility] [address] [place], [place] [phone] (Wo rk) 03/03/2023 Virtual Visit Neurology Erlinda Barber MD [address] [facility] [address] [place], [place] [phone] (Wo rk) documented as of this encounter Procedures Procedure Name Priority Date/Time Associated Diagnosis Comme nts INR POINT OF CARE Routine 10/08/2013 supervisor 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s (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 documented in this encounter Results INR point of care (10/08/2013) P athologist Signature INR Point of 2.7 0.86 - [facility] 1.14 LAB Lucero Stevenson MD LAB - BLOOD ORDERABLES Performing Organization Address City/State/ZIP Code Phon e Number [facility] documented in this encounter Visit Diagnoses Diagnosis supervisor 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s (current) use of anticoagulant s - Primary Long-term (current) use of anticoagulant s documented in this encounter Care Teams Residential Framing Carpenter Relationship Specialty Start Date End Date Lucero Stevenson MD PCP - General Pediatrics 10/11/11 04/22/19 documented as of this encounter
--- OUTSIDE RECORDS SUMMARY | 2022-06-15 13:22 | XMS_ITS | Encounter Summary ---
:1945 Author Organization [facility] Address [address] [place] [address] Care Team Providers Name Role Phone Lucero Stevenson MD Primary Care Provider [phone] Ady Ramos MD Unavailable Reason for Visit Reason Comments Anticoagulation Encounter Details Date Type Department Care Team Description 03/31/2014 Allied Health/[facility]urse [facility] Eag an Anticoagulation Visit [address] [facility] [place] [address] Social History Tobacco [...] this encounter Progress Notes Susie Murphy - 03/31/2014 8:54 AM CDT ANTICOAGULATION FOLLOW-UP CLINIC VISIT Patient Name: Charlette Brush Date: 03/31/2014 Contact Type: Face to Face SUBJECTIVE: Bleeding [...] Pharm Haylie Gonzalez, [facility] [address] [facility] [place] [address] (Lena max) 11/15/2022 Virtual Visit IM/aYne Mathias MD [address] [facility] [place] [address] (Lena max) 03/03/2023 Virtual Visit Neurology Erlinda Barber MD 420 [facility] 295 [place] [address] (Lena max) documented as of this encounter Procedures Procedure Name Priority Date/Time Associated Diagnosis Comme nts INR POINT OF CARE Routine 03/31/2014 detention 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 documented in this encounter Results INR point of care (03/31/2014) P athologist Signature INR Point of 2.7 0.86 - [facility] Care 1.14 LAB Specimen (Source) Anatomical Location Collection Method / Collectio n Time Received Time / Laterality Volume 03/31/2014 Lucero Stevenson MD LAB - BLOOD ORDERABLES Performing Organization Address City/State/ZIP Code Phon e Number [facility] documented in this encounter Visit Diagnoses Diagnosis detention current use of anticoagulant t herapy - Primary documented in this encounter Care Teams Prosthetic Lab Technician Relationship Specialty Start Date End Date Lucero Stevenson MD PCP - General Pediatrics 10/11/11 04/22/19 Ady Ramos MD MD Neurological Surgery 11/25/13 06/09/[address] [place] [address] documented as of this encounter
--- OUTSIDE RECORDS SUMMARY | 2022-06-15 13:22 | XMS_ITS | Encounter Summary ---
:1945 Author Organization [facility] Address [address] [place] [address]. [place] [address] Care Team Providers Name Role Phone Lucero Stevenson MD Primary Care Provider [phone] Reason for Visit Reason Comments Derm Problem Pt comes into the clinic tod ay for a lesion on back. Pt reports slight improvement since last visit . Encounter Details Date Type Department Care Team Description 08/06/2013 Office Visit Dermatology Chastity Montero Dermatitis (Primary 5th Floor, Clinic 5A MD Martha Dx) Roland Zavalateen 420 [facility] [address] [place] [address] [place], [place] [phone] [phone] (Work) [phone] Social History Tobacco Use Types Packs/Day Years [...] documented as of this encounter Progress Notes Sagrario Hernandez LPN - 08/06/2013 5:14 PM CST Images from the original note were not included. Placed pictures of patient in chart for further treatment. CTOR PERIOPERATIVE Vicky Glover MD - 08/06/2013 9:23 AM CST CHIEF COMPLAINT: Follow up of nummular dermatitis and pressure ulcer. HISTORY OF PRESENT ILLNESS: This is a 68-year-old female who presents to Dermatology Clinic for followup. The patient has a history of nummular dermatitis, stasis dermatitis, non-healing pressure ulcer of the left lower back and also numerous causes of allergic contact dermatitis. She was seen at the last visit on 06/22/2013. At that visit we recommended that she continue a Band- Aid and just Vaseline to the healing wound at the left lower back because it appeared that she was having a reaction to topical DuoDERM. On her legs we recommended that she continue hydrocortisone cream. She reports that she is doing well and has had no problems with pain, burning, drainage, or itch at the ulcer at the left lower back. She reports that it has been hard to get the Band- Aid on since she is by herself and there is not anyone to help her with the back. There have been no new areas of concern and nonew problems with her skin. PHYSICAL EXAMINATION: GENERAL: Well-appearing, morbidly obese female in no acute distress, alert and oriented x3. SKIN: Examination is localized to the abdomen, back, buttocks area, arms, legs, hands and feet. The patient was found to have 1.5 cm superficial ulcer with crust and mild erythema at the left lower lateral back. There is also some eczematous change surrounding the wound, likely from contact with bandages. There is no evidence of infection today and there is no discharge or drainage. On the arms the skin appears well with freckling. There is also freckling throughout her anterior trunk. The legs, there is verrucous change with dyspigmentation and also severe xerosis consistent with chronic stasis isaias matitis. ASSESSMENT AND PLAN: 1. Poorly healing pressure ulcer: Ulcer at the lower lateral back is healing well at this time. Our recommendation is that we continue Vaseline under bandage. Given that there is eczematous change surrounding the wound, we will have the patient start hydrocortisone cream to that area too as tolerated. 2. 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 The patient does avoid all allergens. She will continue hydrocortisone cream to the lower extremities and also moisturization daily. We will have her return to Dermatology Clinic in 3 months for reassessment; sooner if any concerns or complaints. Dictated by Vicky Gomez MD Resident .I was present for yancey portions of the history and exam. See resident note for pertinent history, exam, and treatment plan. Chastity Montero MD CTOR PERIOPERATIVE documented in this encounter Nursing Notes 08/06/2013 9:00 AM CST >> DEV VALVERDE Aug 06, 2013 8:40 AM Patient presents with: Derm Problem - Pt comes into the clinic today for a lesion on back. Pt reports slight improvement since last visit. Sagrario Hernandez LPN documented in this encounter Plan of Treatment Upcoming Encounters Date Type Specialty Care Team Description 11/15/2022 Virtual Visit Pharm D Haylie Cheung, [facility] [address] [facility] [place] [phone] (Lena max) 11/15/2022 Virtual Visit [place] [address] [place] [address] [place] [phone] (Lena max) 03/03/2023 Virtual Visit Neurology Erlinda Barber MD 420 [facility] 295 [place], [place] [phone] (Lena max) documented as of this encounter Visit Diagnoses Diagnosis Dermatitis - Primary Contact dermatitis and other eczema, due to unspecified cause documented in this encounter Care Teams Appliance Adjuster Relationship Specialty Start Date End Date Lucero Stevenson MD PCP - General Pediatrics 10/11/11 04/22/19 documented as of this encounter
--- OUTSIDE RECORDS SUMMARY | 2022-06-15 13:22 | XMS_ITS | Encounter Summary ---
:1945 Author Organization [facility] Address [address] [place] [address] Care Team Providers Name Role Phone Lucero Stevenson MD Primary Care Provider [phone] Ady Ramos MD Unavailable Reason for Visit (Routine) - Closed Specialty Diagnoses / Procedures Referred By Contact Refer red To Contact Radiology / Radiology. Diagnoses sb; Epic. ni, pmdh 2012, 2011, 2010, no assistance. [facility] Procedures MA SCREENING DIGITAL BILATERAL [address] [facility], [address] [place] [address] Phone: Fax: Referral ID Status Reason Start Date Expiration Date Visits Requ ested Visits Authorized [id number] Closed 01/08/2014 01/08/2015 1 1 Encounter Details Date Type Department Care Team Description [facility]/09[facility]2014 [facility] [address] [facility], [address] [place], [place] [phone] Social History Tobacco Use Types Packs/Day Years [...] 05/03/2021 organizations such as islam groups, unions, frarimidi or athletic groups, or school groups? How [...] Take 1 tablet (25 180 tablet 3 201312/30/2014 MG tabletIndications: mg) by mouth 2 times [...] Take 1 tablet (100 90 tablet 3 04/201412/30/2014 tabletIndications: mg) by mouth daily Essential hypertension, benign ORDER FOR Equipment being ordered: CPAP mask [...] Take 1 capsule by 90 capsule 3 12/1512/30/2014 hiazide (DYAZIDE) mouth every morning 37.5-25 MG per capsuleIndications: Essential hypertension, benign warfarin (COUMADIN) 10 Take 1 tablet (10 90 tablet 1 201302/17/2014 MG tabletIndications: mg) by mouth daily Other pulmonary embolism or as directed by and infarction, Long INR clinic term (current) use of anticoagulants warfarin (COUMADIN) 7.5 Take 1 tablet daily 90 tablet 3 02/17/2014 MG tabletIndications: as directed by INR Other pulmonary embolism Clinic. and infarction documented as of this encounter Plan of Treatment Upcoming Encounters Date Type Specialty Care Team Description 11/15/2022 Virtual Visit Pharm Haylie Gonzalez, [facility] [address] [place] [phone] (Wo rk) 11/15/2022 Virtual Visit IM/Peds Yane Barraza MD [address] [facility] [address] [place] [phone] (Wo rk) 03/03/2023 Virtual Visit Neurology Erlinda Barber MD [address] [facility] 295 [place] [address] (Wo rk) documented as of this encounter Procedures Procedure Name Priority Date/Time Associated Diagnosis Comme nts MA SCREENING Routine 01/09/2014 1:19 PM Other screening Result s for this DIGITAL BILATERAL CDT mammogram procedure are in the results section. documented in this encounter Results MA Screening Digital Bilateral (01/09/2014 1:19 PM CDT) Anatomical Region Laterality Modality Breast Bilateral Mammography Specimen (Source) Anatomical Location Collection Method / Collectio n Time Received Time / Laterality Volume Impressions 01/09/2014 2:11 PM CDT IMPRESSION: BI-RADS CATEGORY: 1 - ??NEGATIVE. RECOMMENDED FOLLOW-UP: Annual Mammograph y Exam results letter mailed to patient. JOHN PAUL MARQUES MD Narrative 01/09/2014 2:11 PM CDT SCREENING MAMMOGRAM, BILATERAL, DIGITAL w/CAD - 01/09/2014 1:19 PM. BREAST SYMPTOMS: No current breast compl aints. COMPARISON: ??01/08/2013, 01/17/2008. BREAST DENSITY: Almost entirely fat. COMMENTS: No findings of suspicion for m alignancy. ? Procedure Note John Paul Marques MD - 4 SCREENING MAMMOGRAM, BILATERAL, DIGITAL w/CAD - 01/09/2014 1:19 PM. BREAST SYMPTOMS: No current breast compl aints. COMPARISON: 01/08/2013, 01/17/2008. BREAST DENSITY: Almost entirely fat. COMMENTS: No findings of suspicion for m alignancy. IMPRESSION IMPRESSION: BI-RADS CATEGORY: 1 - NEGATI VE. RECOMMENDED FOLLOW-UP: Annual Mammograph y Exam results letter mailed to patient. JOHN PAUL MARQUES MD Lucero Stevenson MD IMG MAMMOGRAPHY ORDERABLES documented in this encounter Visit Diagnoses Diagnosis Other screening mammogram documented in this encounter Care Teams Care Rep Relationship Specialty Start Date End Date Lucero Stevenson MD PCP - General Pediatrics 10/11/11 04/22/19 Ady Ramos MD MD Neurological Surgery 11/25/13 06/09/[address] [place] [address] documented as of this encounter
--- OUTSIDE RECORDS SUMMARY | 2022-06-15 13:22 | XMS_ITS | Encounter Summary ---
:1945 Author Organization [facility] Address [address] [place] [address] Care Team Providers Name Role Phone Lucero Stevenson MD Primary Care Provider [phone] Ady Ramos MD Unavailable Reason for Visit Reason Comments Anticoagulation Encounter Details Date Type Department Care Team Description 01/20/2014 [facility] Health/[facility] Eag an Anticoagulation Visit [address] [...] encounter Progress Notes Qing Guy RN - 01/20/2014 8:40 AM CDT ANTICOAGULATION FOLLOW-UP CLINIC VISIT Patient Name: Charlette Brush Date: 01/20/2014 Contact Type: Face to Face SUBJECTIVE: Bleeding Signs/Symptoms: None Thromboembolic Signs/Symptoms: None Medication Changes: No Dietary Changes: No Bacterial/Viral Infection: No Missed Coumadin Doses: None Other Concerns: No ASSESSMENT/PLAN: See: ANTICOAGULATION QIC flow sheet. INR Today: 2.4 Current Warfarin Dose: 60 mg in the [...] Gonzalez, [facility] [address] [facility] [address] [place] [phone] (Lena max) 11/15/2022 Virtual Visit IM/PedYane Muir MD [address] [facility] [place] [phone] (Lena max) 03/03/2023 Virtual Visit Neurology Erlinda Barber MD 420 [facility] 295 [place], [place] [phone] (Lena max) documented as of this encounter Procedures Procedure Name Priority Date/Time Associated Diagnosis Comme nts INR POINT OF CARE Routine 01/20/2014 regulatory affairs assistant (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 documented in this encounter Results INR point of care (01/20/2014) P athologist Signature INR Point of 2.4 0.86 - [facility] Care 1.14 LAB Specimen (Source) Anatomical Location Collection Method / Collectio n Time Received Time / Laterality Volume 01/20/2014 Lucero Stevenson MD LAB - BLOOD ORDERABLES Performing Organization Address City/State/ZIP Code Phon e Number [facility] documented in this encounter Visit Diagnoses Diagnosis longterm (current) use of anticoagulant s - Primary Long-term (current) use of anticoagulant s documented in this encounter Care Teams Water Systems Designer Relationship Specialty Start Date End Date Lucero Stevenson MD PCP - General Pediatrics 10/11/11 04/22/19 Ady Ramos MD MD Neurological Surgery 11/25/13 06/09/[address] [place] [address] documented as of this encounter
--- OUTSIDE RECORDS SUMMARY | 2022-06-15 13:22 | XMS_ITS | Encounter Summary ---
:1945 Author Organization [place] Address [address] [place] [address]. [place] [address] Care Team Providers Name Role Phone Lucero Stevenson MD Primary Care Provider [phone] Ady Ramos MD Unavailable Reason for Visit Reason Comments Derm Problem Charlette returns to the clinic today for a lesion on lower back. She reports improvement since la st visit. Encounter Details Date Type Department Care Team Description 04/14/2014 Office Visit Dermatology Chastity Montero Pressure ulcer of back, stag e I (Primary Dx); 5th Floor, Clinic 5A MD Martha Dermatitis; Roland Zavalateen [address] [facility] Alejandro is dermatitis, unspecified laterality [facility] [address] [address] [place], [place] [phone] (Work) [phone] Social History Tobacco Use Types Packs/Day Years [...] encounter Progress Notes Sagrario Hernandez LPN - 04/14/2014 4:04 PM CDT Images from the original note were not included. Placed pictures of patient in chart for further treatment. Chastity Montero MD - 04/14/2014 11:46 AM CDT CHIEF COMPLAINT: Followup of pressure ulcer and dermatitis. SUBJECTIVE: Ms. Brush is a 69-year-old female, who was previously seen by Dr. Montero on02/03/2014. She is here now for a followup of her pressure ulcer and dermatitis. She has a history of severe allergic contact dermatitis, eczema and stasis dermatitis. She has been patch tested by Dr. Malcolm ibarra in the past with a significant patch test history. She is very limited to her topical therapyand can only use Topicort gel and 2.5% hydrocortisone ointment. She is incapable of using topical antifungals or antibacterials. Currently, she has a pressure ulcer on her mid-lower back that has been ongoing for many months to years. She states that since her last appointment, she has not noticed much change to the area but cannot visualize it well. She denies any pain or bleeding/oozing. She has not been able to apply any topical steroids to the area, or anything for that matter, because she is unable to dress the area (due to contact allergies) and so the topical agents get rubbed off by her clot abigail. She thinks a prior adhesive bandage may have caused one of the lesions that is currently present. She also has a history of dermatitis on her arms that has been well-controlled with 1-2 times per week use of either HC 2.5% ointment or topicort gel. For her stasis dermatitis she applies topicort gelalmost every day, and denies any itching or open sores on her legs. She has otherwise been in normalhealth and denies any other skin concerns. PHYSICAL EXAMINATION: GENERAL: Morbidly obese female, in no acute distress, pleasant and cooperative with examination. SKIN: A focused skin examination of the face, lower back, arms and legs was completed. All was normal except for the following: - On the middle lower back, there is a cluster of 3 deep red papules with superficial crust, one of which has a honey-colored crust. Two of the papules are round, ~6mm in diameter and one is more linearly oriented. - arms with mild xerosis, no lesions - bilateral distal lower extremities with induration, edema, and scaling. No erosions or ulcerations. ASSESSMENT AND PLAN: 1. Pressure ulcer on the back: - The lesions appear stable, perhaps slightly more red compared to photographs from last visit on 02/03/14. There is concern for superinfection with honey- colored crusting, which may be contributing. Weobtained a culture of the area today and will follow up with results. She will need oral antibioticsif positive (she has a severe contact allergy to mupirocin). - We would love for this area to remain covered and supported with pads to minimize pressure to the area. However the challenge is she has several contact allergies and develops new lesions with application of adhesives. Her body habitus also makes it challenging for her to apply and keep in place any dressings. We have encouraged her to continue to use Topicort gel and 2.5% hydrocortisone ointments to these areas. Today we dressed the area with vaseline with a telfa pad adhered to the area. We willobtain another photo today and continue to monitor this area. 2. Contact dermatitis/eczema: Currently well controlled. Continue hydrocortisone 2.5% ointment BID prn for mild flares or Topicort gel for more severe flares as needed BID. 3. Stasis dermatitis, stable: She can continue to use her topical steroids as needed and continue toelevate her lower extremities as above. Return to clinic in 3 months. Patient care seen and discussed with Dr. Montero .I was present for yancey portions of the history and exam. See resident note for pertinent history, exam, and treatment plan. Chastity Montero MD documented in this encounter Nursing Notes Sagrario Hernandez LPN - 04/14/2014 11:16 AM CDT Chief Complaint Patient presents with ??? Derm Problem Charlette returns to the clinic today for a lesion on lower back. She reports improvement since last visit. Sagrario Hernandez LPN documented in this encounter Plan of Treatment Upcoming Encounters Date Type Specialty Care Team Description 11/15/2022 Virtual Visit Pharm D Haylie Cheung, [facility] [address] [facility] [place] [address] (Wo rk) 11/15/2022 Virtual Visit IM/Peds Yane Barraza MD [address] [facility] [place] [address] (Wo rk) 03/03/2023 Virtual Visit Neurology Erlinda Barber MD 420 [facility] 295 [place] [address] (Wo rk) documented as of this encounter Procedures Procedure Name Priority Date/Time Associated Diagnosis Comme nts SKIN CULTURE Routine 04/14/2014 12:00 PM Pressure ulcer of Res ults for this AEROBIC BACTERIAL CDT back, stage I procedure are in the results section. documented in this encounter Results (ABNORMAL) Skin culture (04/14/2014 12:00 PM CDT) Component Value Ref Test Analysis Performed At [facility] Range Method Time Signature Specimen Ulcer PRESSURE [facility] Description ULCER ON LOWER MICROBIOLOGY BACK Culture Micro Light growth Staphylococcus aureus [facility] Plus normal skin mikaela. MICROB IOLOGY (A) Micro Report FINAL 04/17/2014 [facility] Status MICROBIOLOGY Organism: Light growth [facility] Staphylococcus MICROBIOLOGY aureus Specimen Anatomical Collection Method Collection Time Receive d Time (Source) Location / / Volume Laterality Specimen from 04/14/2014 12:00 04/14/2014 1:32 skin (specimen) PM CDT PM CDT Organism Antibiotic Method Susceptibility Light growth staphylococcus Ciprofloxacin <=0. 5 Susceptible ug/mL aureus (barb) Light growth staphylococcus Clindamycin <=0. 25 Susceptible ug/mL aureus (barb) Light growth staphylococcus Erythromycin <=0. 25 Susceptible ug/mL aureus (barb) Light growth staphylococcus Gentamicin <=0. 5 Susceptible ug/mL aureus (barb) Light growth staphylococcus Levofloxacin <=0. 12 Susceptible ug/mL aureus (barb) Light growth staphylococcus Oxacillin <=0. 25 Susceptible ug/mL aureus (barb) Light growth staphylococcus Penicillin >2.0 Resistant ug/mL aureus (barb) Light growth staphylococcus Tetracycline <=1 Susceptible ug/mL aureus (barb) Light growth staphylococcus Trimethoprim/Sulfamethoxa <=.5/9.5 Susceptible ug/mL aureus (barb) zole Light growth staphylococcus Vancomycin <=0. 5 Susceptible ug/mL aureus (barb) Chastity Montero MD LAB - MICRO GENERAL ORDERABL ES Performing Organization Address City/State/ZIP Code Phon e Number [address] [address] [facility] MICROBIOLOGY documented in this encounter Visit Diagnoses Diagnosis Pressure ulcer of back, stage I - Primar y Dermatitis Contact dermatitis and other eczema, due to unspecified cause Stasis dermatitis, unspecified lateralit y documented in this encounter Care Teams Lockstitch Back Maker Relationship Specialty Start Date End Date Lucero Stevenson MD PCP - General Pediatrics 10/11/11 04/22/19 Ady Ramos MD MD Neurological Surgery 11/25/13 06/09/[address] [id number] documented as of this encounter
--- OUTSIDE RECORDS SUMMARY | 2022-06-15 13:22 | XMS_ITS | Encounter Summary ---
:1945 Author Organization [place] Address [address] [place] [address] Care Team Providers Name Role Phone Lucero Stevenson MD Primary Care Provider [phone] Ady Ramos MD Unavailable Reason for Visit Reason Onset Date Comments Orders 01/03/2014 Sleep center-needs s upplies Encounter Details Date Type Department Care Team Description 01/03/2014 Telephone [facility] Lucero Falk Orders (Sleep [address] [facility] MD [place] center-needs supplies) [place] [address] [facility] [phone] [address] [place], [place] [address] (Wo rk) Social History [...] Telephone Encounter - Danni Marcus, RN - 01/03/2014 8:51 AM CDT Patient would like Dr. Stevenson to order a new CPAP mask. Her supply is over one year old. Uses [employer] per her Insurance. Fax #-[phone] Need the RX and a demographic page. Patient would like a Comfort gel blue nasal mask with HGR,DOM-Size Small Patient's machine is Resp[employer]ics [employer], Rem Star Auto A-Flex System 1. Patient has an appointment at the [facility] [place] in January. Dr. Ramos (the provider she has seen in the past for sleep apnea) is no longer at this facility. So she will be establishing care with anew provider. Ashli Marcus RN Discussed with Dr. Stevenson and verbal approval given to refill order for CPAP mask. Order placed and faxed to [employer]. Patient notified. Ashli Marcus RN documented in this encounter Plan of Treatment Upcoming Encounters Date Type Specialty Care Team Description 11/15/2022 Virtual Visit Pharm Haylie Gonzalez, [facility] 1440 [facility] [place] [phone] (Lena max) 11/15/2022 Virtual Visit [place] [address] [place] [address] [place] [phone] (Lena max) 03/03/2023 Virtual Visit Neurology Erlinda Barber MD 420 [facility] 295 [place] [address] ([place] max) documented as of this encounter Visit Diagnoses Diagnosis Severe obstructive sleep apnea - Primary documented in this encounter Care Teams Distributor Sales Manager Relationship Specialty Start Date End Date Lucero Stevenson MD PCP - General Pediatrics 10/11/11 04/22/19 Ady Ramos MD MD Neurological Surgery 11/25/13 06/09/[address] [place] [address] documented as of this encounter
--- OUTSIDE RECORDS SUMMARY | 2022-06-15 13:22 | XMS_ITS | Encounter Summary ---
:1945 Author Organization [place] Address [address] [place] [address] Care Team Providers Name Role Phone Lucero Stevenson MD Primary Care Provider [phone] Ady Ramos MD Unavailable Reason for Visit Reason Comments Anticoagulation Encounter Details Date Type Department Care Team Description 02/17/2014 [facility] Eag an Anticoagulation Visit 14[address] [facility] [place] [address] Social History [...] encounter Progress Notes Qing Guy RN - 02/17/2014 8:51 AM CDT ANTICOAGULATION FOLLOW-UP CLINIC VISIT Patient Name: Charlette Brush Date: 02/17/2014 Contact Type: Face to Face SUBJECTIVE: Bleeding Signs/Symptoms: None Thromboembolic Signs/Symptoms: None Medication Changes: No Dietary Changes: No Bacterial/Viral Infection: No Missed Coumadin Doses: None Other Concerns: Allergies have been acting up recently. ASSESSMENT/PLAN: See: ANTICOAGULATION QIC flow sheet. INR Today: 2.6 Current Warfarin Dose: 60 mg in the past 7 days Range: Therapeutic INR Goal: 2.0-3.0 New Warfarin Dose: same, 10mg MWF, 7.5mg TTSS = 60 Next INR in: 6 weeks Written instructions given to patient. ANTICOAGULATION CLINIC Qing Guy RN documented in this encounter Miscellaneous Notes Addendum Note - Qing Guy RN - 02/17/2014 11:01 AM CDT Addended by: QING GUY on: 02/17/2014 11:01 AM Modules accepted: Orders, Medications documented in this encounter Plan of Treatment Upcoming Encounters Date Type Specialty Care Team Description 11/15/2022 Virtual Visit Pharm Haylie Gonzalez, [facility] 14[address] [facility] [place] [address] (Lena max) 11/15/2022 Virtual Visit [place] [address] [place] [address] [place] [phone] (Lena max) 03/03/2023 Virtual Visit Neurology Erlinda Barber MD 420 [facility] 295 [place] [address] ([place] max) documented as of this encounter Procedures Procedure Name Priority Date/Time Associated Diagnosis Comme nts INR POINT OF CARE Routine 02/17/2014 alf 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 documented in this encounter Results INR point of care (02/17/2014) P athologist Signature INR Point of 2.6 0.86 - [facility] 1.14 LAB Specimen (Source) Anatomical Location Collection Method / Collectio n Time Received Time / Laterality Volume 02/17/2014 Lucero Stevenson MD LAB - BLOOD ORDERABLES Performing Organization Address City/State/ZIP Code Phon e Number [facility] documented in this encounter Visit Diagnoses Diagnosis alf current use of anticoagulant t herapy - Primary Other pulmonary embolism and infarction alf (current) use of anticoagulant s Long-term (current) use of anticoagulant s documented in this encounter Care Teams Fisher Pot Relationship Specialty Start Date End Date Lucero Stevenson MD PCP - General Pediatrics 10/11/11 04/22/19 Ady Ramos MD MD Neurological Surgery 11/25/13 06/09/[address] [place] [address] documented as of this encounter
--- OUTSIDE RECORDS SUMMARY | 2022-06-15 13:22 | XMS_ITS | Encounter Summary ---
:1945 Author Organization [place] Address [address] [place] [address] Care Team Providers Name Role Phone Lucero Stevenson MD Primary Care Provider [phone] Ady Ramos MD Unavailable Encounter Details Date Type Department Care Team Description 12/23/2013 Orders Only [facility] Eag an Essential hypertension, [address] benign [place] [address] Social History Tobacco Use [...] Virtual Visit Haylie Wake[place], [facility] [address] [facility] [place] [address] (Wo rk) 11/15/2022 Virtual Visit IM/Yane Mathias MD 3305 [facility] [place] [address] (Wo rk) 03/03/2023 Virtual Visit Neurology Erlinda Barber MD 420 [facility] [address] [place], [place] [address] (Wo rk) documented as of this encounter Procedures Procedure Name Priority Date/Time Associated Comments Diagnosis ALBUMIN RANDOM URINE Routine 12/23/2013 9:12 AM Essential R esults for this QUANTITATIVE CDT hypertension, procedure are in benign the results section. HEMOGLOBIN A1C Routine 12/23/2013 9:12 AM Essential Results for this CDT hypertension, procedure are in benign the results section. BASIC METABOLIC PANEL Routine 12/23/2013 9:12 AM Essential Results for this CDT hypertension, procedure are in benign the results section. documented in this encounter Results Hemoglobin A1c (12/23/2013 9:12 AM CDT) athologist Signature Hemoglobin A1C 5.7 4.3 - 6.0 [place] % [facility] [place] Specimen Anatomical Collection Method Collection Time Receive d Time (Source) Location / / Volume Laterality Blood specimen 12/23/2013 9:12 AM 014 9:14 (specimen) CDT AM CDT Lucero Stevenson MD LAB - BLOOD ORDERABLES Performing Organization Address City/State/ZIP Code Phon e Number [facility] 1440 [facility] [place] [address] (ABNORMAL) Basic metabolic panel (Ca, Cl, CO2, Creat, Gluc, K, Na, BUN) (12/23/2013 9:12 AM CDT) athologist Signature Sodium 140 133 - 144 [place] mmol/L [facility] Potassium 4.0 3.4 - 5.3 [place] mmol/L [facility] Chloride 102 94 - 109 [place] mmol/L [facility] Carbon Dioxide 28 20 - 32 [place] mmol/L [facility] Anion Gap 10 6 - 17 [place] mmol/L [facility] [place] Glucose 103 (H) 60 - 99 [place] mg/dL [facility] Comment: Fasting specimen Urea Nitrogen 15 7 - 30 mg/dL [place] [facility] [place] Creatinine 0.71 0.52 - 1.04 mg/dL [place] [facility] [place] GFR Estimate 82 >60 mL/min/1.7m2 [place] [facility] [place] GFR Estimate If Black >90 >60 mL/min/1.7m2 [facility] [place] Calcium 8.9 8.5 - 10.4 mg/dL [place] [facility] [place] Specimen Anatomical Collection Method Collection Time Receive d Time (Source) Location / / Volume Laterality Blood specimen 12/23/2013 9:12 AM 014 9:14 (specimen) CDT AM CDT Lucero Stevenson MD LAB - BLOOD ORDERABLES Performing Organization Address City/State/ZIP Code Phon e Number [facility] [place] 14[address] [place] [address] Microalbumin quantitative, random urine (12/23/2013 9:12 AM CDT) Component Value Ref Test Analysis Performed At [facility] Range Method Time Signature Creatinine 118 mg/dL [facility] Urine [facility] Albumin Urine <5 mg/L [facility] mg/L Urine Microalbumin lowest re portable value has been changed from 2 mg/L to 5 [facility] mg/L due to a methodology change on October. [facility]AMPUS LABS Albumin Urine Unable to 0 - 25 [facility] mg/g Cr calculate mg/g Cr [facility] Specimen Anatomical Collection Method Collection Time Receive d Time (Source) Location / / Volume Laterality Urine specimen 12/23/2013 9:12 AM 014 9:13 (specimen) CDT AM CDT Lucero Stevenson MD LAB - URINE ORDERABLES Performing Organization Address City/State/ZIP Code Phon e Number [facility] [address] [place] [address] [facility] documented in this encounter Visit Diagnoses Diagnosis Essential hypertension, benign documented in this encounter Care Teams English Professor Relationship Specialty Start Date End Date Lucero Stevenson MD PCP - General Pediatrics 10/11/11 04/22/19 Ady Ramos MD MD Neurological Surgery 11/25/13 06/09/[address] [address] documented as of this encounter
--- OUTSIDE RECORDS SUMMARY | 2022-06-15 13:22 | XMS_ITS | Encounter Summary ---
:1945 Author Organization [place] Address [address] [place] [address]. [place] [address] Care Team Providers Name Role Phone Lucero Stevenson MD Primary Care Provider [phone] Reason for Visit Reason Comments Derm Problem Charlette is here today for a po damaris healing ulcer on her lower back. She states I have had it for a year. I think it is pretty much closed. Encounter Details Date Type Department Care Team Description 11/04/2013 Office Visit Dermatology Chastity Montero, Dermatitis 5th Floor, Clinic 5A MD [place] 420 [facility] [address] [facility] [place] [phone] Social History Tobacco Use Types Packs/Day [...] documented as of this encounter Progress Notes Elissa Ambrosio CMA - 11/04/2013 1:37 PM CDT Images from the original note were not included. Pictures taken of patient today to be placed in chart for future reference. Chastity Montero MD - 11/04/2013 10:01 AM CDT CHIEF COMPLAINT: Dermatitis and ulcer. HISTORY OF PRESENT ILLNESS: The patient is a 68-year-old female well known to me. She has a history of severe allergic contact dermatitis, eczema and stasis dermatitis. She has been patch tested by and has a significant patch test history. She is very limited and can only use Topicort gel and 2.5% hydrocortisone ointment, no topical antifungals or antibacterials. She has had a pressure ulcer on her left lower back ongoing for some time now. We have been monitoring it. Compared to the photos in 07/2013, she has had a significant reduction in the size of the open area, good re-epithelialization. There is now a very tiny pinpoint area that is still open but does have significant erythema. She has been applying Vaseline and then alternates hydrocortisone ointment or her Topicort gel to the area to decrease the inflammation. She has had some eczematous areas related to tape reactions in this area and has worked well to control those. She can only sleep in one position at night and does know she lies on this area. She is restricted in her movements at night due to her CPAP machine. We did try to apply DuoDERM but she had a reaction to it. She does try to do a Band-Aid, but she lives by herself and no one can help her with her back. PHYSICAL EXAMINATION: The patient is a well-appearing female in no acute distress. Please note the nursing note for vital signs. Arms, back and legs are examined today. She has hemosiderin staining, right leg greater than left, ongoing significant edema, mild xerosis of the legs, mild xerosis of the arms. On her back, she continues to have a 1.5 cm now pink plaque. There is a very superficial 3 mm ulcerated area in its medial upper pole. ASSESSMENT AND PLAN: 1. Pressure ulcer. It is very inflamed today. In the past, I have wondered if there could be a lesion at this area, but I am loathe to biopsy as it has taken so long to have it heal. It may now just bereactive change at this point. I will have her continue her good wound care. She may continue to useher topical steroids for the inflammatory component. A photo was taken today and we will continue tomonitor this area. 2. Contact dermatitis/eczema, doing very well. I refilled her hydrocortisone 2.5% ointment and her Topicort gel. She has now begun water yoga and is doing very well with it. Will have her continue her emollients. 3. Stasis dermatitis, doing well. She will use her topical steroids as needed, elevate when she can.I will see her back in 3 months. documented in this encounter Nursing Notes Elissa Ambrosio CMA - 11/04/2013 9:24 AM CDT Chief Complaint Patient presents with ??? Derm Problem Charlette is here today for a poorly healing ulcer on her lower back. She states I have had it for a year. I think it is pretty much closed. ABBI Wharton documented in this encounter Plan of Treatment Upcoming Encounters Date Type Specialty Care Team Description 11/15/2022 Virtual Visit Pharm D Haylie Cheung, [facility] 14[address] [facility] [place] [address] (Lena max) 11/15/2022 Virtual Visit IM/Peds Yane Barraza MD 3305 [facility] [place] [address] (Lena max) 03/03/2023 Virtual Visit Neurology Erlinda Barber MD 420 [facility] 295 [place] [address] (Wo rk) documented as of this encounter Visit Diagnoses Diagnosis Dermatitis Contact dermatitis and other eczema, due to unspecified cause documented in this encounter Care Teams Logistics Research Engineer Relationship Specialty Start Date End Date Lucero Stevenson MD PCP - General Pediatrics 10/11/11 04/22/19 documented as of this encounter
--- OUTSIDE RECORDS SUMMARY | 2022-06-15 13:22 | XMS_ITS | Encounter Summary ---
:1945 Author Organization [place] Address [address] [place] [address] Care Team Providers Name Role Phone Lucero Stevenson MD Primary Care Provider [phone] Ady Ramos MD Unavailable Reason for Visit Reason Onset Date Comments URI 02/11/2014 Encounter Details Date Type Department Care Team Description 02/11/2014 Telephone [facility] Lucero Falk, URI 14[address] [facility] [place] [address] [facility] [phone] [address] [place], [place] [address] (Wo rk) Social History [...] encounter Miscellaneous Notes Telephone Encounter - Temi Rodriguez RN - 02/11/2014 1:06 PM CDT Charlette Brush is a 69 year old female who calls with URI symptoms. NURSING ASSESSMENT Description: Occasional cough, nasal congestion with clear nasal discharge and sore throat Onset/duration: 1 week Precip. factors: None Associated symptoms: Denies fever, difficulty breathing or shortness of breath. Sleeping well with CPAP without difficulty. Improves/worsens symptoms: Patient reporting some relief with Robitussin and Mucinex. Taking medication(s) as prescribed? Yes Taking over the counter medication(s?) Yes and Robitussin and Mucinex Any medication side effects? No significant side effects Any barriers to taking medication(s) as prescribed? No Medication(s) improving/managing symptoms? Yes Medication reconciliation completed: No Last exam/Treatment: 12/24/2013 NURSING PLAN: Nursing advice to patient reassurance and homecare advice per clinical references RECOMMENDED DISPOSITION: Home care advice - clinical references: Viral Respiratory Illness [Adult] Will comply with recommendation: Yes If further questions/concerns or if symptoms do not improve, worsen or new symptoms develop, call your PCP or [facility] as soon as possible. Guideline used: clinical references: Viral Respiratory Illness [Adult] Temi Rodriguez RN documented in this encounter Plan of Treatment Upcoming Encounters Date Type Specialty Care Team Description 11/15/2022 Virtual Visit Pharm Haylie Gonzalez, [facility] 1440 [facility] [place] [address] (Lena max) 11/15/2022 Virtual Visit IM/Peds Yane Barraza MD [address] [facility] [place] [address] (Lena max) 03/03/2023 Virtual Visit Neurology Erlinda Barber MD 420 [facility] 295 [place] [address] (Wo rk) documented as of this encounter Visit Diagnoses Not on filedocumented in this encounter Care Teams Supervisor Evaporator Relationship Specialty Start Date End Date Lucero tSevenson MD PCP - General Pediatrics 10/11/11 04/22/19 Ady Ramos MD MD Neurological Surgery 11/25/13 06/09/[address] [place] [address] documented as of this encounter
--- OUTSIDE RECORDS SUMMARY | 2022-06-15 13:22 | XMS_ITS | Encounter Summary ---
:1945 Author Organization [place] Address [address] [place] [address] Care Team Providers Name Role Phone Lucero Stevenson MD Primary Care Provider [phone] Reason for Visit Reason Onset Date Comments INR Followup 10/17/2013 INR 2.9 on 10/18/13 Encounter Details Date Type Department Care Team Description 10/17/2013 Telephone [facility] Lucero Stevenson INR Followup (INR 2.9 1440 [facility] MD Annetta on 10/18/13) [place] [address] [facility] [phone] [address]88 [place], [place] [address] (Wo rk) Social History [...] Telephone Encounter - Prudence Austin RN - 10/18/2013 11:57 AM CDT Called pt and informed that fax to [facility] was completed. Telephone Encounter - Prudence Austin RN - 10/18/2013 10:55 AM CDT INR 2.9 today. Result faxed to Oral Surgery as directed. Telephone Encounter - Qing Guy RN - 10/17/2013 3:39 PM CDT Patient called because she needs her INR checked tomorrow per the request of her Oral Surgeon. She has a lab appointment at at 11:00. Order entered. INR result needs to be faxed to: [facility] . Patient can be reached at home number [phone]. Qing Guy RN documented in this encounter Plan of Treatment Upcoming Encounters Date Type Specialty Care Team Description 11/15/2022 Virtual Visit Pharm D Haylie Cheung, [facility] [address] [place] [address] [place] [address] (Lena max) 11/15/2022 Virtual [place] [address] [place] [address] [place] [address] (Lena max) 03/03/2023 Virtual Visit Neurology Erlinda Barber MD 420 [facility] 295 [place] [address] (Lena max) documented as of this encounter Visit Diagnoses Diagnosis Other pulmonary embolism and infarction - 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
--- OUTSIDE RECORDS SUMMARY | 2022-06-15 13:22 | XMS_ITS | Encounter Summary ---
:1945 Author Organization [place] Address [address] [place] [address] Care Team Providers Name Role Phone Lucero Knox MD Primary Care Provider [phone] Ady Ramos MD Unavailable Reason for Referral Consultation - Closed Specialty Diagnoses / Procedures Referred By Contact Refer red To Contact Diagnoses Morbid obesity (H) Lucero Knox MD [facility] [address] [place] [address] Referral ID Status Reason Start Date Expiration Date Visits Requ ested Visits Authorized [id number] Closed 12/24/2013 06/22/2014 1 1 - Closed Specialty Diagnoses / Procedures Referred By Contact Refer red To Contact Diagnoses Obstructive sleep apnea (adult) (pediatric) Lucero Knox MD [facility] [address] [place] [address] Referral ID Status Reason Start Date Expiration Date Visits Requ ested Visits Authorized [id number] Closed 12/24/2013 06/22/2014 1 1 Reason for Visit Reason Comments Wellness Visit Pre Visit Planning - Done Encounter Details Date Type Department Care Team Description 12/24/2013 Office Visit [facility] Lucero Knox general medical examination at a health care facility (Primary Dx); Yarelis Littlejohn MD Essential hypertension, benign; [address] [place] Morbid obesity (H); [place] [phone] [address] [facility] Pre-diabetes; [phone] RD Severe Obstructive Sleep Apnea [AHI 45]; [place] [address] Other pulmonary embolism and infarction; [phone] (Wo rk) Other screening mammogram Social History Tobacco Use Types Packs/Day Years [...] Sign Reading Time Taken Comments Blood Pressure 118/78 12/24/2013 9:00 AM CDT Pulse 66 12/24/2013 9:00 AM CDT Temperature 36.8 ??C (98.3 ??F) 12/24/2013 9:00 AM CDT Respiratory Rate - - Oxygen Saturation 95% 12/24/2013 9:00 AM CDT Inhaled Oxygen Concentration - - Weight 191.4 kg (422 lb) 12/24/2013 9:00 AM CDT Height 167.6 cm (5' 6) 12/24/2013 9:00 AM CDT Body Mass Index 68.11 12/24/2013 9:00 AM CDT documented in this encounter Patient Instructions Patient InstructionsBee Hensley Y, EXTRUSION DIE REPAIR MANAGER - 12/17/2013 8:58 AM CDT Preventive Health Recommendations Female Ages [...] encounter Progress Notes Lucero Knox MD - 12/17/2013 8:58 AM CDT SUBJECTIVE: Charlette Brush is a 68 year old female who presents for Annual Wellness Visit. Are you in the first 12 months of your Medicare coverage? No Healthy Habits: ?? Do you get at least three servings of calcium containing foods daily (dairy, green leafy vegetables, etc.)? yes ?? Amount of exercise or daily activities, outside of work: 1 day(s) per week ?? Problems taking medications regularly No ?? Medication side effects: No ?? Have you had an eye exam in the past two years? yes ?? Do you see a dentist twice per year? yes ?? Do you have sleep apnea, excessive snoring or daytime drowsiness?yes COGNITIVE SCREEN 1) Repeat 3 items (Banana, Flowood, Chair) 2) Clock draw: NORMAL 3) 3 item recall: Recalls 3 objects Results: 3 items recalled: COGNITIVE IMPAIRMENT LESS LIKELY Mini-CogTM Copyright S Le. Licensed by the author for use in [facility]; reprintedwith permission (soob@[facility]). All rights reserved. Other concerns to address: Pt need new CPAP mask (possible referral to sleep clinic due to insurance coverage) 1) weight: Going to weight watchers, not losing weight, not tracking reliably. All Histories reviewed and updated in [facility] as appropriate. History Substance Use Topics ??? Smoking status: Never Smoker ??? Smokeless tobacco: Never Used ??? Alcohol Use: No The patient does not drink >3 drinks per day nor >7 drinks per week. Today's PHQ-2 Score: Do you have a Health Care Directive?: No: Advance care planning reviewed with patient; information given to patient to review. Current providers sharing in care for this patient include: Patient Care Team: Lucero Knox MD as PCP - General (Pediatrics) Ady Ramos MD as MD (Neurosurgery) ?? Hearing impairment: No ?? Ability to successfully perform activities of daily living: Yes, no assistance needed ?? Fall risk: ?? Fall Risk Assessment completed per order. ?? Home safety: none identified The following health maintenance items are reviewed in [facility] and correct as of today: Health Maintenance Topic Date Due ??? MEDICARE ANNUAL WELLNESS VISIT 12/05/2013 ??? MAMMO Q1 YR NO INBASKET MESSAGE 01/08/2014 ??? COLONOSCOPY Q10 YR INBASKET MESSAGE 02/12/2014 ??? INFLUENZA VACCINE (SYSTEM ASSIGNED) 04/16/2014 ??? TETANUS Q10 YR 08/27/2014 ??? OP ANNUAL INR REFERRAL 10/29/2014 ??? BMP Q1 YR (NO INBASKET) 12/23/2014 ??? MICROALBUMIN Q1 YEAR( NO INBASKET) 12/23/2014 ??? A1C Q1 YR (NO INBASKET) 12/23/2014 ??? DEXA Q3 YR 12/14/2015 ??? LIPID MONITORING Q5 YEARS (NO INBASKET) 05/31/2016 ??? ADVANCE DIRECTIVE PLANNING Q5 YRS (NO INBASKET) 08/11/2016 ??? PNEUMOVAX ([facility] ASSIGNED) Completed Hypertension Follow-up ?? Outpatient blood pressures are not being checked. ?? Diet: no added salt and low salt intake ROS: C: NEGATIVE for fever, chills, change in weight E/M: NEGATIVE for ear, mouth and throat problems R: NEGATIVE for significant cough or SOB CV: NEGATIVE for chest pain, palpitations or peripheral edema Problem list, Medication list, Allergies, and Medical/Social/Surgical histories reviewed in [facility] andupdated as appropriate. OBJECTIVE: BP 118/78 Pulse 66 Temp(Src) 98.3 ??F (36.8 ??C) (Tympanic) Ht 5' 6 (1.676 m) Wt 422 lb (191.418 kg) BMI 68.15 kg/m2 SpO2 95% Estimated body mass index is 68.15 kg/(m^2) as calculated fromthe following: Height as of this encounter: 5' 6 (1.676 m). Weight as of this encounter: 422 lb (191.418 kg). EXAM: Female: GENERAL APPEARANCE: morbidly obese, alert and no [...] masses and bowel sounds normal MS: no musculoskeletal defects are noted and gait is age appropriate without ataxia SKIN: no suspicious lesions or rashes NEURO: Normal strength and tone, sensory exam grossly normal, mentation intact and speech normal PSYCH: mentation appears normal and affect normal/bright Skin: Small 2mm open sore just to left of midline at pants line. Minimal erythema, no drainage or warmth. ASSESSMENT / PLAN: I spent an additional 25 min face to face with patient over 50% in counseling on medical issues as listed below. (V70.0) Routine general medical examination at a health care facility (primary encounter diagnosis) -I reviewed morbidly obese bmi with patient, recommended diet and exercise changes based on bmi and current lifestyle/habits. -I reviewed pts bp which is currently at goal -we discussed health maintenance, and reviewed and updated the health maintenance section in the chart -we discussed safety and patients custodial health risks. (401.1) Essential hypertension, benign -bp at goal -reviewed labs with patient -refilled meds Plan: Microalbumin quantitative, random urine, Basic metabolic panel (Ca, Cl, CO2, Creat, Gluc, K, Na, BUN), Hemoglobin A1c, triamterene-hydrochlorothiazide (DYAZIDE) 37.5-25 MG per capsule, losartan (COZAAR) 100 MG tablet, atenolol (TENORMIN) 25 MG tablet (278.01) Morbid obesity -discussed this is her significant health issue -has lost and gained weight multiple times -currently failing diet control -option given to discuss with bariatric surgery Plan: BARIATRIC ADULT REFERRAL (790.29) Pre-diabetes -controlled with diet currently (327.23) Severe Obstructive Sleep Apnea [AHI 45] -needs f/u with sleep MD Plan: SLEEP EVALUATION & MANAGEMENT REFERRAL - ADULT (415.19) 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 Practitioner is supportive of decision. COUNSELING: regular exercise healthy diet/nutrition Estimated body mass index is 68.15 kg/(m^2) as calculated from the following: Height as of this encounter: 5' 6 (1.676 m). Weight as of this encounter: 422 lb (191.418 kg). Weight management plan: bariatric referral reports that she has never smoked. She [...] provided an AVS. The Basic Care Plan (screening for mammo, colonoscopy, vaccines, etc) for Charlette meets the Care Plan requirement. This Care Plan has been established and reviewed with the Patient. LUCERO KNOX MD [facility] documented in this encounter Nursing Notes Bee Hensley CMA - 12/24/2013 9:01 AM CDT Chief Complaint Patient presents with ??? Wellness Visit ??? Pre Visit Planning - Done Initial BP 118/78 Pulse 66 Temp(Src) 98.3 ??F (36.8 ??C) (Tympanic) Ht 5' 6 (1.676 m) Wt 422 lb (191.418 kg) BMI 68.15 kg/m2 SpO2 95% Estimated body mass index is 68.15 kg/(m^2) as calculated from the following: Height as of this encounter: 5' 6 (1.676 m). Weight as of this encounter: 422 lb (191.418 kg). BP completed using cuff size: large-radial BP taken Bee Hensley CMA documented in this encounter Plan of Treatment Upcoming Encounters Date Type Specialty Care Team Description 11/15/2022 Virtual Visit Pharm D Haylie Cheung, [facility] 1440 [facility] [place] [address] (Wo rk) 11/15/2022 Virtual Visit IM/Peds Yane Barraza MD [address] [facility] [place] [address] (Wo rk) 03/03/2023 Virtual Visit Neurology Erlinda Barber MD 420 [facility] [address] [place] [address] (Wo rk) Scheduled Referrals Name Type Priority Associated Diagnoses Order S chedule SLEEP EVALUATION & Referral Routine Severe Obstructive 1 O ccurrences starting MANAGEMENT REFERRAL - Sleep Apnea [AHI 45 ] 12/24/2013 until ADULT 12/24/2014 BARIATRIC ADULT Referral Routine Morbid obesity (H) Ordere d: 12/24/2013 REFERRAL documented as of this encounter Visit Diagnoses Diagnosis Routine general medical examination at a health care facility - Primary Essential hypertension, benign Morbid obesity (H) Morbid obesity Pre-diabetes Other abnormal glucose Severe Obstructive Sleep Apnea [AHI 45] Obstructive sleep apnea (adult) (pediatr ic) Other pulmonary embolism and infarction Other screening mammogram documented in this encounter Care Teams Turpentine Farmer Relationship Specialty Start Date End Date Lucero Knox MD PCP - General Pediatrics 10/11/11 04/22/19 Ady Ramos MD MD Neurological Surgery 11/25/13 06/09/[address] [place] [address] [place], [place] [phone] documented as of this encounter
--- OUTSIDE RECORDS SUMMARY | 2022-06-15 13:22 | XMS_ITS | Encounter Summary ---
:1945 Author Organization [place] Address [address] [place] [address] Care Team Providers Name Role Phone Lucero Stevenson MD Primary Care Provider Reason for Visit Reason Comments Anticoagulation Encounter Details Date Type Department Care Team Description 11/11/2013 Allied Health/Nurse [facility] Eag an Anticoagulation Visit 1440 [facility] [place] [address] Social History [...] encounter Progress Notes Qing Guy RN - 11/11/2013 2:42 PM CDT ANTICOAGULATION FOLLOW-UP CLINIC VISIT Patient Name: Charlette Brush Date: 11/11/2013 Contact Type: Face to Face SUBJECTIVE: Bleeding Signs/Symptoms: None Thromboembolic Signs/Symptoms: None Medication Changes: No Dietary Changes: No Bacterial/Viral Infection: No Missed Coumadin Doses: None Other Concerns: No ASSESSMENT/PLAN: See: ANTICOAGULATION QIC flow sheet. INR Today: 3.6 Current Warfarin Dose: 60 mg in the past 7 days Range: Supratherapeutic INR Goal: 2.0-3.0 New Warfarin Dose: 5mg today, then 10mg MWF, 7.5mg TTSS = 60 Next INR in: 2 weeks Written instructions given to patient. ANTICOAGULATION CLINIC Qing Guy RN documented in this encounter Plan of Treatment Upcoming Encounters Date Type Specialty Care Team Description 11/15/2022 Virtual Visit Pharm Haylie Gonzalez, [facility] 1440 [facility] [place] [phone] (Lena max) 11/15/2022 Virtual Visit [place] [address] [place] [address] [place] [phone] (Lena max) 03/03/2023 Virtual Visit Neurology Erlinda Barber MD 420 [facility] [address] [place], [place] [phone] (Lena max) documented as of this encounter Procedures Procedure Name Priority Date/Time Associated Diagnosis Comme nts INR POINT OF CARE Routine 11/11/2013 [facility] (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
--- OUTSIDE RECORDS SUMMARY | 2022-06-15 13:22 | XMS_ITS | Encounter Summary ---
:1945 Author Organization [place] Address [address] [place] [address]. [place] [address] Care Team Providers Name Role Phone Lucero Stevenson MD Primary Care Provider [phone] Ady Ramos MD Unavailable Reason for Visit Reason Comments Derm Problem Charlette returns to the clinic today for a non-healing lesion on back. She reports improvment since las t visit new concerns that the skin tag has been bleeding. Encounter Details Date Type Department Care Team Description 02/03/2014 Office Visit Dermatology Chastity Montero Pressure ulcer, stage II (Pr imary Dx); 5th Floor, Clinic 5A MD Martha Stasis dermatitis, unspecified lateralit y; [place] [address] [facility] [address] [place] [address] [place], [place] [phone] [address] (Work) [phone] Social History Tobacco Use Types Packs/Day Years [...] encounter Progress Notes Sagrario Hernandez LPN - 02/04/2014 3:12 PM CDT Images from the original note were not included. Placed pictures of patient in chart for further treatment. Sanjeev Whiting MD - 02/03/2014 12:05 PM CDT CHIEF COMPLAINT: Followup of pressure ulcer and dermatitis. SUBJECTIVE: Ms. Brush is a 69-year-old female, who was previously seen by Dr. Montero on11/07/2013. She is here now for a followup [...] hydrocortisone ointment. She is incapable of using antifungals or antibacterials. Currently, she has a pressure ulcer on her mid-lower back that has been ongoing for many months to years. She states that since her last appointment, her wound has opened up, and she occasionally notes blood spots on her clothing. Because she is participating in swim yoga, she has applied a bandage to her pressure ulcer to prevent it being open to the water. However, the adhesive on this bandage did remove some of her skin and caused further damage. She has not noticed any pus ordraining from this wound. She also notes that on her left dorsal arm, she has had mild pruritus and a rough, red rash. She has been applying the hydrocortisone 2.5% ointment to this rash with some improvement. She is not currently bothered by this now. She has otherwise been in normal health and denies any other skin concerns. PHYSICAL EXAMINATION: GENERAL: Morbidly obese female, in no acute distress, pleasant and cooperative with examination. SKIN: A focused skin examination of the face, lower back, arms and legs was completed. All was normal except for the following: - On the mid-lower back, there are 3 superficial ulcerations. The one on the superior aspect is a 1 cm eroded papule with surrounding erythema. At the level of her waistband, there are 2 other linear ulcerations. The one on the more left lateral aspect is approximately 1 cm in size, and the other is approximately 4 cm in length. Both have significant surrounding erythema. - On the left dorsal arm, there is a 3-4 cm, annular, erythematous plaque with central scale. - On the bilateral lower extremities, there is significant induration and edema bilaterally up to the one-half anterior bethea. ASSESSMENT AND PLAN: 1. Pressure ulcer: Compared to her image from 10/2013, the patient has developed a new ulceration, and her previous ulcerations appear inflamed and worse than prior. She should continue to use her Topicort and 2.5% hydrocortisone ointments to these areas. We have recommended continued good wound care to the areas. We will obtain another photo today and continue to monitor this area. 2. Contact dermatitis/eczema: The patient currently has a flare on her left dorsal arm. We will haveher continue the hydrocortisone 2.5% ointment, as well as the Topicort gel to this area twice a day for at least a week. 3. Stasis dermatitis, stable: She can continue to use her topical steroids as needed and continue toelevate her lower extremities as above. Return to clinic in 3 months. Patient care seen and discussed with Dr. Montero Dictated by Sanjeev Whiting MD Resident .I was present for yancey portions of the history and exam. See resident note for pertinent history, exam, and treatment plan. Chastity Montero MD documented in this encounter Nursing Notes Sagrario Hernandez LPN - 02/03/2014 10:00 AM CDT Chief Complaint Patient presents with ??? Derm Problem Charlette returns to the clinic today for a non-healing lesion on back. She reports improvment since last visit new concerns that the skin tag has been bleeding. Sagrario Hernandez LPN documented in this encounter Plan of Treatment Upcoming Encounters Date Type Specialty Care Team Description 11/15/2022 Virtual Visit Pharm Haylie Gonzalez, [facility] [address] [place] [place] [address] (Wo rk) 11/15/2022 Virtual Visit IM/Peds Yane Barraza MD [address] [facility] [address] [place], [place] [phone] (Wo rk) 03/03/2023 Virtual Visit Neurology Erlinda Barber MD 420 [facility] [address] [place], [place] [phone] (Wo rk) documented as of this encounter Visit Diagnoses Diagnosis Pressure ulcer, stage II (H) - Primary Stasis dermatitis, unspecified lateralit y Eczema Contact dermatitis and other eczema, due to unspecified cause documented in this encounter Care Teams Trading Floor Operator Relationship Specialty Start Date End Date Lucero Stevenson MD PCP - General Pediatrics 10/11/11 04/22/19 Ady Ramos MD MD Neurological Surgery 11/25/13 06/09/[address] [facility] [address] [place], [place] [address] documented as of this encounter
--- OUTSIDE RECORDS SUMMARY | 2022-06-15 13:22 | XMS_ITS | Encounter Summary ---
:1945 Author Organization [place] Address [address] [place] [address] Care Team Providers Name Role Phone Lucero Stevenson MD Primary Care Provider [phone] Ady Ramos MD Unavailable Reason for Visit Reason Comments RECHECK follow up ceferino - Closed Specialty Diagnoses / Procedures Referred By Contact Refer red To Contact Diagnoses Obstructive sleep apnea (adult) (pediatric) Lucero Stevenson MD [facility] [address] [place] [address] Referral ID Status Reason Start Date Expiration Date Visits Requ ested Visits Authorized [id number] Closed 12/24/2013 06/22/2014 1 1 Encounter Details Date Type Department Care Team Description 01/21/2014 Office Visit [facility] Albert Stevenson MD [address] [address] CEFERINO (obstructive sleep apnea) (Primary D x); Sleep Centers Jem Sanderson MD [address] [facility] [address] [place] [address] Severe Obstructive Sleep Apnea [AHI 45] [address] [facility] [address] [place] [address] Social History Tobacco Use Types Packs/Day Years [...] Sign Reading Time Taken Comments Blood Pressure 126/66 01/21/2014 2:00 PM CDT R Lower a rm Pulse 80 01/21/2014 2:00 PM CDT Temperature - - Respiratory Rate 18 01/21/2014 2:00 PM CDT Oxygen Saturation 92% 01/21/2014 2:00 PM CDT Inhaled Oxygen Concentration - - Weight 192.3 kg (424 lb) 01/21/2014 2:00 PM CDT Height 167.6 cm (5' 5.98) 01/21/2014 2:00 PM CDT Body Mass Index 68.47 01/21/2014 2:00 PM CDT documented in this encounter Progress Notes Jem Watts MD - 01/21/2014 3:28 PM CDT CHIEF COMPLAINT: Follow-up for severe obstructive sleep apnea. PRESENTING HISTORY: Ms. Marzena Brush was diagnosed with obstructive sleep apnea initially in 2004. She has been on CPAP therapy since then. A repeat sleep study was done on 12/08/2011, and she was noted to have an apnea-hypopnea index of 45.6 per hour, and RDI of 74.8 per hour. The lowest oxygen saturation was 85%. There was no evidence of hypoventilation on the sleep study. She has been doing well on CPAP at a pressure setting of 11 cm of water, and returns for a routine follow-up visit. Her weighthas changed from 185 kg to 191 kg in the meanwhile. The patient continues to use CPAP regularly with good resolution of her symptoms. She continues to report sustained improvement in her daytime alertness, and also resolution of snoring and other symptoms of sleep apnea. A download from her CPAP device shows 100% compliance during the last 30 days, with average daily usage of more than 7 hours. Residual AHI is normal at 0.2 per hour. IMPRESSION: Severe obstructive sleep apnea, adequately treated on CPAP therapy. TREATMENT PLAN: 1. Continue CPAP therapy at 11 cm of water pressure. 2. Weight management was discussed and patient is working ob lifestyle modifications. 3. Routine follow-up in a year's time is advised. TIME: A total of 15 minutes were spent with this patient, with more than 50% counseling. JEM WATTS MD MT: [id number]#[id number] Name: MARZENA BRUSH Account: [id number] : 1945 Visit Date: 01/21/2014 Document: [id number] cc: Lucero Stevenson MD documented in this encounter Plan of Treatment Upcoming Encounters Date Type Specialty Care Team Description 11/15/2022 Virtual Visit Pharm Halyie Gonzalez, [facility] [address] [place] [address] [place] [phone] (Lena max) 11/15/2022 Virtual Visit [place] [address] [place] [address] [place] [phone] (Wo winter) 03/03/2023 Virtual Visit Neurology Erlinda Barber MD [address] [facility] [address] [place], [place] [address] (Lena max) documented as of this encounter Visit Diagnoses Diagnosis CEFERINO (obstructive sleep apnea) - Primary Obstructive sleep apnea (adult) (pediatr ic) Severe Obstructive Sleep Apnea [AHI 45] Obstructive sleep apnea (adult) (pediatr ic) documented in this encounter Care Teams Supervisor Metal Cans Relationship Specialty Start Date End Date Lucero Stevenson MD PCP - General Pediatrics 10/11/11 04/22/19 Ady Ramos MD MD Neurological Surgery 11/25/13 06/09/[address] [address] documented as of this encounter
--- OUTSIDE RECORDS SUMMARY | 2022-06-15 13:22 | XMS_ITS | Encounter Summary ---
:1945 Author Organization [facility] Address [address] [place] [address] Care Team Providers Name Role Phone Lucero Stevenson MD Primary Care Provider [phone] Encounter Details Date Type Department Care Team Description 10/18/2013 Orders Only [facility] Eag an ferry terminal agent (current) use of a nticoagulants; [address] Other pulmonary embolism and infarction [place] [address] Social History Tobacco Use [...] Team Description 11/15/2022 Virtual Visit Haylie Wakefield, [facility] [address] [facility] [place] [phone] (Wo rk) 11/15/2022 Virtual Visit IM/Peds Yane Barraza MD [address] [facility] [place] [phone] (Wo rk) 03/03/2023 Virtual Visit Neurology Erlinda Barber MD [address] [facility] [address] [place], [place] [address] (Wo rk) documented as of this encounter Procedures Procedure Name Priority Date/Time Associated Diagnosis Comme nts INR Routine 10/18/2013 10:37 AM ferry terminal agent (current) R esults for this CDT use of anticoagu lants procedure are in the Other pulmonary results sect ion. embolism and infarction documented in this encounter Results (ABNORMAL) INR (10/18/2013 10:37 AM CDT) athologist Signature INR 2.90 (H) 0.86 - 1.14 [facility] Specimen Anatomical Collection Method Collection Time Receive d Time (Source) Location / / Volume Laterality Blood specimen 10/18/2013 10:37 4 (specimen) AM CDT 10:38 AM CDT Lucero Stevenson MD LAB - BLOOD ORDERABLES Performing Organization Address City/State/ZIP Code Phon e Number [facility] [address] [facility] [place] [address] documented in this encounter Visit Diagnoses Diagnosis alf (current) use of anticoagulant s Long-term (current) use of anticoagulant s Other pulmonary embolism and infarction documented in this encounter Care Teams Billet Cutter Relationship Specialty Start Date End Date Lucero Stevenson MD PCP - General Pediatrics 10/11/11 04/22/19 documented as of this encounter
--- OUTSIDE RECORDS SUMMARY | 2022-06-15 13:23 | XMS_ITS | Encounter Summary ---
:1945 Author Organization [facility] Address [address] [place] [address] Care Team Providers Name Role Phone Lucero Stevenson MD Primary Care Provider [phone] Reason for Visit Reason Comments Anticoagulation Encounter Details Date Type Department Care Team Description 06/25/2013 [facility] Eag an Anticoagulation Visit 14[address] [facility] [place] [address] Social History Tobacco Use [...] of this encounter Progress Notes Prudence Austin - 06/25/2013 10:55 AM CST ANTICOAGULATION FOLLOW-UP CLINIC VISIT Patient Name: Charlette Brush Date: 06/25/2013 Contact Type: Face to Face SUBJECTIVE: Bleeding Signs/Symptoms: None Thromboembolic Signs/Symptoms: None Medication Changes: No Dietary Changes: No Bacterial/Viral Infection: No Missed Coumadin Doses: None Other Concerns: No ASSESSMENT/PLAN: See: ANTICOAGULATION QIC flow sheet. [facility] Prudence Austin RN ER MACHINE OPERATOR documented in this encounter Plan of Treatment Upcoming Encounters Date Type Specialty Care Team Description 11/15/2022 Virtual Visit Pharm Haylie Gonzalez, [facility] [address] [facility] [address] [place] [phone] (Wo rk) 11/15/2022 Virtual Visit IM/Peds Yane Barraza MD [address] [facility] [address] [place] [phone] (Wo rk) 03/03/2023 Virtual Visit Neurology Erlinda Barber MD 420 [facility] [address] [place], [place] [phone] (Wo rk) documented as of this encounter Procedures Procedure Name Priority Date/Time Associated Diagnosis Comme nts INR POINT OF CARE Routine 06/25/2013 [facility] (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 documented in this encounter Results INR point of care (06/25/2013) P athologist Signature INR Point of 3.0 0.86 - [facility] Care 1.14 LAB Lucero Stevenson MD LAB - BLOOD ORDERABLES Performing Organization Address City/State/ZIP Code Phon e Number [facility] documented in this encounter Visit Diagnoses Diagnosis [facility] (current) use of anticoagulant s - Primary Long-term (current) use of anticoagulant s documented in this encounter Care Teams Small Brake Form Operator Relationship Specialty Start Date End Date Lucero Stevenson MD PCP - General Pediatrics 10/11/11 04/22/19 documented as of this encounter
--- OUTSIDE RECORDS SUMMARY | 2022-06-15 13:23 | XMS_ITS | Encounter Summary ---
:1945 Author Organization [place] Address [address] [place] [address] Care Team Providers Name Role Phone Lucero Stevenson MD Primary Care Provider [phone] Reason for Visit (Routine) - Closed Specialty Diagnoses / Procedures Referred By Contact Refer red To Contact Radiology Diagnoses SCREENING BILATERAL-DIGITAL Procedure Notes: Routine Breast Center Procedures RADIOLOGY [address] [facility], [address] [place], [place] [address] Phone: Fax: Referral ID Status Reason Start Date Expiration Date Visits Requ ested Visits Authorized [id number] Closed 01/08/2013 07/07/2013 1 1 Encounter Details Date Type Department Care Team Description 01/08/[address] [facility] Lavern Stevenson Visit for screening [facility] Breast MD [place] mammogram Center [facility] [address] [facility], [address] [place], [place] [phone] Social History Tobacco Use Types Packs/Day Years [...] 05/03/2021 organizations such as gnosticism groups, unions, fraMachinima or athletic groups, or school groups? How [...] by mouth 0 tablet 2 times daily acetaminophen (TYLENOL) Take 325 mg by 0 03/17/2019 325 MG tablet mouth daily as needed atenolol (TENORMIN) 25 MG Take 1 tablet by 180 tablet 3 11/1412/24/2013 tabletIndications: mouth 2 times Essential hypertension, daily. benign Cholecalciferol (VITAMIN Take 5,000 Units by 0 10/04/2021 D PO) mouth daily desoximetasone (TOPICORT) Apply 1 g topically 180 g 3 0 02/21/2012 03/26/2013 0.05 % GELIndications: two times daily. Dermatitis hydrocortisone 2.5 % Daily as needed 180 g 3 02/21/2012 03/26/2013 ointmentIndications: Dermatitis losartan (COZAAR) 100 MG Take 1 tablet by 90 tablet 3 11/2812/24/2013 tabletIndications: mouth daily. Essential hypertension, benign ORDER FOR DMEIndications: Auto-CPAP: Max 11 cm H2O, Min 11cm H2O 1 Device 0 12/08/2011 08/26/2013 Obstructive sleep apnea (adult) (pediatric) Continuous, Lifetime need and heated humidity. triamterene-hydrochloroth Take 1 capsule by 90 capsule 3 12/24/2013 iazide (DYAZIDE) 37.5-25 mouth every MG per morning. capsuleIndications: Essential hypertension, benign warfarin (COUMADIN) 10 MG Take 1 tablet by 90 tablet 1 08/1708/19/2013 tabletIndications: Other mouth daily. or as pulmonary embolism and directed by INR infarction, exterminator helper clinic (current) use of anticoagulants documented as of this encounter Plan of Treatment Upcoming Encounters Date Type Specialty Care Team Description 11/15/2022 Virtual Visit Pharm D Haylie Cheung, [facility] [address] [facility] [place] [address] (Wo rk) 11/15/2022 Virtual Visit IM/Peds Yane Barraza MD [address] [facility] [place] [phone] (Wo rk) 03/03/2023 Virtual Visit Neurology Erlinda Barber MD 420 [facility] 295 [place] [address] (Wo rk) documented as of this encounter Procedures Procedure Name Priority Date/Time Associated Diagnosis Comme nts MA SCREENING Routine 01/08/2013 10:03 AM Visit for screening R esults for this DIGITAL BILATERAL CDT mammogram procedure are in the results section. documented in this encounter Results MA Screening Digital Bilateral (01/08/2013 10:03 AM CDT) Anatomical Region Laterality Modality Breast Bilateral Mammography Specimen (Source) Anatomical Collection Method Collection Time Re ceived Time Location / / Volume Laterality 01/08/2013 10:03 AM CDT Impressions 01/08/2013 10:47 AM CDT IMPRESSION: BI-RADS 2, BENIGN. ALNODRA GALAVIZ MD Narrative 01/08/2013 10:47 AM CDT SCREENING MAMMOGRAM, BILATERAL, DIGITAL w/CAD BREAST SYMPTOMS/COMPARISON: 01/05/2012, BREAST PARENCHYMAL PATTERN: Heterogeneou sly dense. COMMENTS: Stable nodularity in both igor sts. Screening exam in one year recommended. Procedure Note Alondra Galaviz MD - 01/08/2013Formatt ing of this note might be different from the original. SCREENING MAMMOGRAM, BILATERAL, DIGITAL w/CAD BREAST SYMPTOMS/COMPARISON: 01/05/2012, BREAST PARENCHYMAL PATTERN: Heterogeneou sly dense. COMMENTS: Stable nodularity in both igor sts. Screening exam in one year recommended. IMPRESSION IMPRESSION: BI-RADS 2, BENIGN. ALONDRA GALAVIZ MD Lucero Stevenson MD IMG MAMMOGRAPHY ORDERABLES documented in this encounter Visit Diagnoses Diagnosis Visit for screening mammogram Other screening mammogram documented in this encounter Care Teams Equipment Analyst Relationship Specialty Start Date End Date Lucero Stevenson MD PCP - General Pediatrics 10/11/11 04/22/19 documented as of this encounter
--- OUTSIDE RECORDS SUMMARY | 2022-06-15 13:23 | XMS_ITS | Encounter Summary ---
:1945 Author Organization [place] [facility] Address [address] [place] [address] Care Team Providers Name Role Phone Lucero Stevenson MD Primary Care Provider [phone] Reason for Visit Reason Comments Anticoagulation Encounter Details Date Type Department Care Team Description 01/08/2013 [facility] Eag an Anticoagulation Visit [address] [facility] [...] this encounter Progress Notes Prudence Austin - 01/08/2013 9:02 AM CDT ANTICOAGULATION FOLLOW-UP CLINIC VISIT Patient Name: Charlette Brush Date: 01/08/2013 Contact Type: Face to Face SUBJECTIVE: Bleeding Signs/Symptoms: None Thromboembolic Signs/Symptoms: None Medication Changes: No Dietary Changes: No Bacterial/Viral Infection: No Missed Coumadin Doses: None Other Concerns: No ASSESSMENT/PLAN: See: ANTICOAGULATION QIC flow sheet. [facility] Prudence Austin RN documented in this encounter Plan of Treatment Upcoming Encounters Date Type Specialty Care Team Description 11/15/2022 Virtual Visit Pharm Haylie Gonzalez, [facility] [address] [facility] [place] [address] (Wo rk) 11/15/2022 Virtual Visit IM/Peds Yane Barraza MD [address] [facility] [address] [place] [phone] (Wo rk) 03/03/2023 Virtual Visit Neurology Erlinda Barber MD 420 [facility] 295 [place], [place] [phone] (Wo rk) documented as of this encounter Procedures Procedure Name Priority Date/Time Associated Diagnosis Comme nts INR POINT OF CARE Routine 01/08/2013 skilled nursing (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 documented in this encounter Results INR point of care (01/08/2013) P athologist Signature INR Point of 2.9 0.86 - [facility] Care 1.14 LAB Lucero Stevenson MD LAB - BLOOD ORDERABLES Performing Organization Address City/State/ZIP Code Phon e Number [facility] documented in this encounter Visit Diagnoses Diagnosis extermination supervisor (current) use of anticoagulant s - Primary Long-term (current) use of anticoagulant s documented in this encounter Care Teams Helpdesk Specialist Relationship Specialty Start Date End Date Lucero Stevenson MD PCP - General Pediatrics 10/11/11 04/22/19 documented as of this encounter
--- OUTSIDE RECORDS SUMMARY | 2022-06-15 13:23 | XMS_ITS | Encounter Summary ---
:1945 Author Organization [place] Address [address] [place] [address] Care Team Providers Name Role Phone Lucero Stevenson MD Primary Care Provider [phone] Reason for Visit Reason Comments Imm/Inj Flu Vaccine Encounter Details Date Type Department Care Team Description 04/29/2013 [facility] [facility] Eag an Imm/Inj (Flu Vaccine) Visit 14[address] [facility] [place] [address] Social History [...] documented as of this encounter Progress Notes Dedrick Seals - 04/29/2013 9:02 AM CDT Injectable Influenza Immunization Documentation 1. Has the patient received the information for the injectable influenza vaccine? YES 2. Is the patient 6 months of age or older? YES 3. Does the patient have any of the following contraindications? Severe allergy to eggs? No Severe allergic reaction to previous influenza vaccines? No Allergy to contact lens solution/thimerosol? No History of Guillain[place] syndrome? No Undergoing chemotherapy or radiation therapy? (vaccine should be given at least 2 weeks prior or 3 weeks after) No Currently have moderate or severe illness? No 4. The vaccine has been administered and the patient was instructed to wait 15 minutes before leaving the building in the event of an allergic reaction: YES Vaccination given by Dedrick Seals MA documented in this encounter Plan of Treatment Upcoming Encounters Date Type Specialty Care Team Description 11/15/2022 Virtual Visit Pharm Haylie Gonzalez, [facility] [address] [facility] [address] (Wo rk) 11/15/2022 Virtual Visit IM/Peds Yane Barraza MD [address] [facility] [address] [place] [phone] (Wo rk) 03/03/2023 Virtual Visit Neurology Erlinda Barber MD 420 [facility] 295 [place], [place] [phone] (Wo rk) documented as of this encounter Visit Diagnoses Diagnosis Need for prophylactic vaccination and in oculation against influenza - Primary documented in this encounter Care Teams Honing Machine Set Up Operator Tool Relationship Specialty Start Date End Date Lucero Stevenson MD PCP - General Pediatrics 10/11/11 04/22/19 documented as of this encounter
--- OUTSIDE RECORDS SUMMARY | 2022-06-15 13:23 | XMS_ITS | Encounter Summary ---
:1945 Author Organization [place] Address [address] [place] [address] Care Team Providers Name Role Phone Lucero Stevenson MD Primary Care Provider [phone] Reason for Visit Reason Comments Anticoagulation Encounter Details Date Type Department Care Team Description 11/26/2012 Allied [facility] Eag an Anticoagulation Visit 14[address] [facility] [place] [address] Social History [...] this encounter Progress Notes Qing Guy - 11/26/2012 9:11 AM CDT ANTICOAGULATION FOLLOW-UP CLINIC VISIT Patient Name: Charlette Brush Date: 11/26/2012 Contact Type: Face to Face SUBJECTIVE: Bleeding Signs/Symptoms: None Thromboembolic Signs/Symptoms: None Medication Changes: No Dietary Changes: No Bacterial/Viral Infection: No Missed Coumadin Doses: None Other Concerns: No ASSESSMENT/PLAN: See: ANTICOAGULATION QIC flow sheet. INR Today: 2.3 Current Warfarin Dose: 65 mg in the past 7 days Range: Therapeutic INR Goal: 2.0-3.0 New Warfarin Dose: same, 10mg MTWTSS, 5mg F Next INR in: 6 weeks [facility] Qing Guy RN documented in this encounter Nursing Notes 11/26/2012 8:45 AM CDT >> QING GUY Mon November 26, 2012 9:12 AM Charlette Carreon Trudi presents in clinic for INR. Estimated Body mass index is 62.34 kg/(m^2) as calculated from the following: Height as of 10/10/12: 5' 7(1.702 m). Weight as of 04/14/12: 398 lb(180.532 kg). Qing Guy RN documented in this encounter Plan of Treatment Upcoming Encounters Date Type Specialty Care Team Description 11/15/2022 Virtual Visit Pharm Haylie Gonzalez, [facility] 14[address] [facility] [place] [address] (Lena max) 11/15/2022 Virtual Visit IM[place] [address] [place] [address] [place] [phone] (Lena max) 03/03/2023 Virtual Visit Neurology Erlinda Barber MD 420 [facility] 295 [place], [place] [phone] (Lena max) documented as of this encounter Procedures Procedure Name Priority Date/Time Associated Diagnosis Comme nts INR POINT OF CARE Routine 11/26/2012 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 designer (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 documented in this encounter Results INR point of care (11/26/2012) P athologist Signature INR Point of 2.3 0.86 - [facility] Care 1.14 LAB Lucero Stevenson MD LAB - BLOOD ORDERABLES Performing Organization Address City/State/ZIP Code Phon e Number [facility] documented in this encounter Visit Diagnoses Diagnosis 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 designer (current) use of anticoagulant s - Primary Long-term (current) use of anticoagulant s documented in this encounter Care Teams Superintendent Maintenance Relationship Specialty Start Date End Date Lucero Stevenson MD PCP - General Pediatrics 10/11/11 04/22/19 documented as of this encounter
--- OUTSIDE RECORDS SUMMARY | 2022-06-15 13:23 | XMS_ITS | Encounter Summary ---
:1945 Author Organization [place] Address [address] [place] [address] Care Team Providers Name Role Phone Lucero Stevenson MD Primary Care Provider [phone] Reason for Visit Reason Onset Date Comments Refill Request 11/26/2012 atenolol, losartan, dyazide Encounter Details Date Type Department Care Team Description 11/26/2012 Refill [facility] Eag Lucero Stevenson Refill Request 1440 [facility] Preet Littlejohn MD (atenolol, losartan, [place] [address] [facility] dyazide) [phone] [address] [place], [place] [address] (Wo rk) Social History Tobacco Use [...] Miscellaneous Notes Telephone Encounter - Qing Guy - 11/26/2012 8:47 AM CDT Refill request from patient. Medication requested: atenolol, losartan, dyazide Last office visit: 12/06/11. Has appointment for physical on 12/05/12 and will run out of meds before then. Approved x 1 with no refills, patient needs to be seen. Qing Guy, RN documented in this encounter Plan of Treatment Upcoming Encounters Date Type Specialty Care Team Description 11/15/2022 Virtual Visit Pharm Haylie Gonzalez, [facility] [address] [place] [address] (Wo rk) 11/15/2022 Virtual Visit IM/Peds Yane Barraza MD [address] [facility] [address] [place] [phone] (Wo rk) 03/03/2023 Virtual Visit Neurology Erlinda Barber MD 420 [facility] 295 [place], [place] [phone] (Wo rk) documented as of this encounter Visit Diagnoses Diagnosis Essential hypertension, benign - Primary documented in this encounter Care Teams Drywall Foreman Relationship Specialty Start Date End Date Lucero Stevenson MD PCP - General Pediatrics 10/11/11 04/22/19 documented as of this encounter
--- OUTSIDE RECORDS SUMMARY | 2022-06-15 13:23 | XMS_ITS | Encounter Summary ---
:1945 Author Organization [place] Address [address] [place] [address] Care Team Providers Name Role Phone Lucero Stevenson MD Primary Care Provider [phone] Reason for Visit Reason Comments Anticoagulation Encounter Details Date Type Department Care Team Description 04/01/2013 Allied Health/[facility]urse [facility] Eag an Anticoagulation Visit [address] [facility] [place] [id number] Social History [...] this encounter Progress Notes Qing Guy - 04/01/2013 9:50 AM CDT ANTICOAGULATION FOLLOW-UP CLINIC VISIT Patient Name: Charlette Brush Date: 04/01/2013 Contact Type: Face to Face SUBJECTIVE: Bleeding Signs/Symptoms: None Thromboembolic Signs/Symptoms: None Medication Changes: started taking glucosamine/chondroitin about a month ago. Per micromedex: Concurrent use of CHONDROITIN and ANTICOAGULANTS may result in elevations of International Normalized Ratioserum values and potentiation of anticoagulant effects. Concurrent use of GLUCOSAMINE and WARFARIN may result in elevations of International Normalized Ratio serum values and potentiation of anticoagulant effects. Dietary Changes: No Bacterial/Viral Infection: No Missed Coumadin Doses: None Other Concerns: No Had a eczema flare this month. ASSESSMENT/PLAN: See: ANTICOAGULATION QIC flow sheet. INR Today: 3.2 Current Warfarin Dose: 65 mg in the past 7 days Range: Supratherapeutic INR Goal: 2.0-3.0 New Warfarin Dose: 5mg MF, 10mg TWTSS = 60 Next INR in: 4 weeks Written instructions given to patient. ANTICOAGULATION CLINIC Qing Guy RN documented in this encounter Nursing Notes 04/01/2013 8:45 AM CDT >> QING GUY Mon Apr 01, 2013 9:51 AM Charlette Velma Brush presents in clinic for INR. Estimated Body mass index is 65.12 kg/(m^2) as calculated from the following: Height as of 03/19/13: 5' 7(1.702 m). Weight as of 03/19/13: 415 lb 12.8 oz(188.606 kg). Qing Guy RN documented in this encounter Plan of Treatment Upcoming Encounters Date Type Specialty Care Team Description 11/15/2022 Virtual Visit Pharm Haylie Gonzalez, [facility] [address] [facility] [place] [address] (Lena max) 11/15/2022 Virtual Visit IM/Peds Yane Barraza MD [address] [facility] [place] [address] (Lena max) 03/03/2023 Virtual Visit Neurology Erlinda Barber MD [address] [facility] [address] [place] [address] (Wo rk) documented as of this encounter Procedures Procedure Name Priority Date/Time Associated Diagnosis Comme nts INR POINT OF CARE Routine 04/01/2013 sales assoc (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 documented in this encounter Results (ABNORMAL) INR point of care (04/01/2013) P athologist Signature INR Point of 3.2 (A) 0.86 - [facility] Care 1.14 LAB Lucero Stevenson MD LAB - BLOOD ORDERABLES Performing Organization Address City/State/ZIP Code Phon e Number [facility] documented in this encounter Visit Diagnoses Diagnosis jail (current) use of anticoagulant s - Primary Long-term (current) use of anticoagulant s documented in this encounter Care Teams Lift Operator Relationship Specialty Start Date End Date Lucero Stevenson MD PCP - General Pediatrics 10/11/11 04/22/19 documented as of this encounter
--- OUTSIDE RECORDS SUMMARY | 2022-06-15 13:23 | XMS_ITS | Encounter Summary ---
:1945 Author Organization [place] Address [address] [place] [address] Care Team Providers Name Role Phone Lucero Stevenson MD Primary Care Provider [phone] Reason for Visit Reason Comments Anticoagulation Encounter Details Date Type Department Care Team Description 10/15/2012 Allied Health/[facility]urse [facility] Eag an Anticoagulation Visit 14[address] [facility] [place] [address] Social History [...] this encounter Progress Notes Qing Guy - 10/15/2012 8:52 AM CDT ANTICOAGULATION FOLLOW-UP CLINIC VISIT Patient Name: Charlette Brush Date: 10/15/2012 Contact Type: Face to Face SUBJECTIVE: Bleeding Signs/Symptoms: None Thromboembolic Signs/Symptoms: None Medication Changes: No Dietary Changes: No Bacterial/Viral Infection: No Missed Coumadin Doses: None Other Concerns: No ASSESSMENT/PLAN: See: ANTICOAGULATION QIC flow sheet. INR Today: 2.9 Current Warfarin Dose: 65 mg in the past 7 days Range: Therapeutic INR Goal: 2.0-3.0 New Warfarin Dose: same, 10mg MTWTSS, 5mg F Next INR in: 6 weeks [facility] ANTICOAGULATION CLINIC Qing Guy RN documented in this encounter Nursing Notes 10/15/2012 8:45 AM CDT >> QING GUY Mon Oct 15, 2012 9:19 AM Charlette Carreon Trudi presents in clinic [...] Gonzalez, [facility] [address] [facility] [place] [address] (Lena max) 11/15/2022 Virtual Visit [place] [address] [place] [address] [place] [id number] (Lena max) 03/03/2023 Virtual Visit Neurology Erlinda Barber MD 420 [facility] [address] [place], [place] [phone] (Lena max) documented as of this encounter Procedures Procedure Name Priority Date/Time Associated Diagnosis Comme nts INR POINT OF CARE Routine 10/15/2012 Encounter for long-term Results for this (current) use of procedure a re in the anticoagulants results secti on. 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
--- OUTSIDE RECORDS SUMMARY | 2022-06-15 13:23 | XMS_ITS | Encounter Summary ---
:1945 Author Organization [facility] Address [address] [place] [address] Care Team Providers Name Role Phone Lucero Knox MD Primary Care Provider [phone] Reason for Referral - Closed Specialty Diagnoses / Procedures Referred By Contact Refer red To Contact Diagnoses Morbid obesity (H) Lucero Knox MD [facility] [address] [place] [address] [place] [address] Referral ID Status Reason Start Date Expiration Date Visits Requ ested Visits Authorized [id number] Closed 12/05/2012 06/03/2013 1 1 Reason for Visit Reason Comments Pre Visit Planning - Done Wellness Visit Encounter Details Date Type Department Care Team Description 12/05/2012 Office Visit [facility] Lucero Knox are annual wellness visit, initial (Primary Dx); Yarelis Littlejohn MD Essential hypertension, benign; [address] [facility] Other pulmonary embolism and infarction; [place] [phone] [address] [facility] Severe Obstructive Sleep Bankruptcy Processor ea [AHI 45]; [phone] RD Pre-diabetes; [place], [place] [address] Morbid obesity (H); [phone] (Wo rk) Visit for screening mammogram; Osteoporo sis screening; Other lymphedem a Social History Tobacco Use Types Packs/Day Years [...] Sign Reading Time Taken Comments Blood Pressure 131/60 12/05/2012 10:29 AM CDT Pulse 65 12/05/2012 10:29 AM CDT Temperature 37.1 ??C (98.8 ??F) 12/05/2012 10:29 AM CDT Respiratory Rate - - Oxygen Saturation - - Inhaled Oxygen Concentration - - Weight 187.9 kg (414 lb 5 oz) 12/05/2012 10:29 AM CDT Height 170.2 cm (5' 7) 12/05/2012 10:29 AM CDT Body Mass Index 64.89 12/05/2012 10:29 AM CDT documented in this encounter Patient Instructions Patient InstructionsBee Hensley - 11/28/2012 4:02 PM CDT Female Patient Instructions - updated 07/19/2012 The best way to stay healthy is to live a healthy lifestyle. A healthy lifestyle includes regular exercise, eating a well balanced diet, keeping a healthy weight and not smoking. Regular office visits and screening tests are another important way to take care of yourself. Preventive visits provided by health care providers can find health problems early when treatment works best and can keep you from getting certain diseases or illnesses. In addition to your office visit, some immunizations and screening tests are recommended: All people over 65 should have a yearly flu shot. Please talk with your provider about other vaccines: including pneumonia vaccine, shingles vaccine, tetanus vaccine and hepatitis B vaccine. Colorectal Cancer screening tests help to find pre-cancerous polyps (growths in the colon) so they can be removed before they turn into cancer. Tests ordered for screening depend on your personal and family history risk factors and can include colonoscopy or FIT testing. Screening for breast cancer is recommended with a Mammogram every 1-2 years up until age 69. If you are over 69, talk with your provider about whether or not you want to continue having screening mammograms. Unless you've had an abnormal Pap test in the past 10-20 years, you may no longer need a yearly Pap test. Be sure to talk to your provider if you have vaginal symptoms, such as bleeding or changes in your vaginal health. Bone mass measurement (dexa scan) is recommended once for screening - and may be recommended periodically after the first screening if you are at risk for osteoporosis. Diabetes Mellitus screening is recommended every 1-5 years. Talk with your provider about how often you should have this test. An eye exam is recommended every year to screen for conditions such as glaucoma, macular degeneration, cataracts, etc. Cardiovascular screening tests that check your cholesterol and other blood fat (lipid) levels are recommended periodically. Have a cholesterol test every 5 years, or more frequently if you are at risk for high cholesterol/heart disease. Eat at least 5 servings of fruits and vegetables daily. Eat whole-grain bread, whole-wheat pasta and brown rice instead of white grains and rice. For bone health: Eat calcium-rich foods or take calcium pills (500 to 600 mg) twice a day with food.Also take vitamin D (1000 IUs) each day. Exercise for at least 150 minutes a week (an average of 30 minutes a day, 5 days of the week). This will help you control your weight and prevent disease. Limit alcohol to one drink per day. No smoking. Wear sunscreen to prevent skin cancer. See your dentist twice a year for an exam and cleaning. Here is a list of your current Health Maintenance items with a due date: Health Maintenance Topic Date Due ??? Dexa Q3 Yr 03/09/2012 ??? Mammo Q1 Yr No Inbasket Message 2013 ??? Influenza Vaccine (System Assigned) 04/16/2013 ??? Op Annual Inr Referral 07/30/2013 ??? Bmp Q1 Yr (No Inbasket) 11/26/2013 ??? Microalbumin Q1 Year( No Inbasket) 11/26/2013 ??? A1c Q1 Yr (No Inbasket) 11/26/2013 ??? Colonoscopy Q10 Yr Inbasket Message 02/12/2014 ??? Tetanus Q10 Yr 08/27/2014 ??? Lipid Monitoring Q5 Years (No Inbasket) 05/31/2016 ??? Advance Directive Planning Q5 Yrs (No Inbasket) 08/11/2016 ??? Pneumovax ([facility] Assigned) Completed documented in this encounter Progress Notes Lucero Knox MD - 11/28/2012 4:02 PM CDT SUBJECTIVE: Charlette Brush is a 67 year old female who presents for Annual Wellness Visit. Healthy Habits: ?? Do you get at least three servings of calcium containing foods daily (dairy, green leafy vegetables, etc.)? yes ?? Amount of exercise or daily activities, outside of work: none, pt would like to be able to do more exercise but not able to. ?? Problems taking medications regularly No ?? Medication side effects: No ?? Have you had an eye exam in the past two years? yes ?? Do you see a dentist twice per year? yes ?? Do you have sleep apnea, excessive snoring or daytime drowsiness?yes Other concerns to address: None 1) spot on skin left flank, caused some pain last night. 2) htn: No dizziness, chest pain, worsening shortness of breath. Taking medications regularly. 3) seeing INR clinic regularly, has been in range. 4) ivet: Using reliably, follow up normal. All Histories reviewed and updated in [facility] as appropriate. History Substance Use Topics ??? [...] Knox MD as PCP - General (Pediatrics) ?? Hearing impairment: Yes, pt just got hearing aids ?? Ability to successfully perform activities of daily living: Yes, no assistance needed ?? Fall risk: ?? Fall Risk Assessment completed per order. ?? Home safety: none identified The following health maintenance items are reviewed in [facility] and correct as of today: Health Maintenance Topic Date Due ??? Dexa Q3 Yr 03/09/2012 ??? Mammo Q1 Yr No Inbasket Message 2013 ??? Influenza Vaccine (System Assigned) 04/16/2013 ??? Op Annual Inr Referral 07/30/2013 ??? Bmp Q1 Yr (No Inbasket) 11/26/2013 ??? Microalbumin Q1 Year( No Inbasket) 11/26/2013 ??? A1c Q1 Yr (No Inbasket) 11/26/2013 ??? Colonoscopy Q10 Yr Inbasket Message 02/12/2014 ??? Tetanus Q10 Yr 08/27/2014 ??? Lipid Monitoring Q5 Years (No Inbasket) 05/31/2016 ??? Advance Directive Planning Q5 Yrs (No Inbasket) 08/11/2016 ??? Pneumovax ([facility] Assigned) Completed Sukhjinders cognitive function is assessed using the following cognitive screening question and task: ?? About what time is it (within the hour)? Correct - PASS ?? Count backwards from 20 to 1: Correct - PASS Hypertension Follow-up ?? Outpatient blood pressures are not being checked. ?? Diet: low salt ROS: C: NEGATIVE for fever, chills, change in weight E/M: NEGATIVE for ear, mouth and throat problems R: NEGATIVE for significant cough or SOB CV: NEGATIVE for chest pain, palpitations or peripheral edema Problem list, Medication list, Allergies, and Medical/Social/Surgical histories reviewed in [facility] andupdated as appropriate. OBJECTIVE: BP 131/60 Pulse 65 Temp 98.8 ??F (37.1 ??C) (Tympanic) Ht 5' 7 (1.702 m) Wt 414 lb 5 oz (187.931 kg) BMI 64.89 kg/m2 Estimated Body mass index is 64.89 kg/(m^2) as calculated from the following: Height as of this encounter: 5' 7(1.702 m). Weight as of this encounter: 414 lb 5 oz(187.931 kg). EXAM: Female: GENERAL APPEARANCE: Morbidly obese, alert and no distress EYES: Eyes [...] S3 or S4, no murmur, click or rub. 3+ lower extremity edema bilaterally. ABDOMEN: soft, nontender, and bowel sounds normal. Unable to asses HSM or masses due to obesity. MS: no musculoskeletal defects are noted and gait is age appropriate without ataxia SKIN: no suspicious lesions or rashes. Rash around skin tag on left flank, appears eczematous. NEURO: Normal strength and tone, sensory exam grossly normal, mentation intact and speech normal PSYCH: mentation appears normal and affect normal/bright ASSESSMENT / PLAN: V70.0 Medicare annual wellness visit, initial (primary encounter diagnosis) -I reviewed morbidly obese bmi with patient, recommended diet and exercise changes based on bmi and current lifestyle/habits. -I reviewed pts bp which is currently at goal -we discussed health maintenance, and reviewed and updated the health maintenance section in the chart -we discussed safety and patients long term care phlebotomist health risks. 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 -continue on coumadin -has seen heme onc to discuss pros/cons of staying on; elected to continue on med Plan: OFFICE/OUTPT VISIT,EST,LEVL III 327.23 Severe Obstructive Sleep Apnea [AHI 45] -currently being seen by sleep clinic -reviewed notes, cpap usage is good Plan: OFFICE/OUTPT VISIT,EST,LEVL III 790.29 Pre-diabetes -labs stable, -keep working on diet and exercise Plan: OFFICE/OUTPT VISIT,EST,LEVL III 278.01 Morbid obesity -discussed with patient at length -she is not interested in surgical weight loss -would consider seeing medical weight loss clinic after her sisters visit this summer -number given for her to schedule appt at a time convienient for her Plan: BARIATRIC ADULT REFERRAL, OFFICE/OUTPT VISIT,EST,LEVL III V76.12 Visit for screening mammogram Plan: MA Screening Digital Bilateral V82.81 Osteoporosis screening Plan: DX Hip/Pelvis/Spine 457.1 Other lymphedema -has been to lymphedema clinic in the past -states that treatments have not worked well -not interested in going again Plan: OFFICE/OUTPT VISIT,EST,LEVL III End of Life Planning: Patient currently has an advanced directive: No. I have verified the patient's ablity to prepare an advanced directive/make health care decisions. Literature was provided to assist patient in preparingan advanced directive. COUNSELING: regular exercise healthy diet/nutrition vision screening hearing screening dental care Osteoporosis Prevention/Bone Health Advanced Planning Estimated Body mass index is 64.89 kg/(m^2) as calculated from the following: Height as of this encounter: 5' 7(1.702 m). Weight as of this encounter: 414 lb 5 oz(187.931 kg). Weight management plan: Established an exercise regimen with the patient. Activity goal: 10 minutes 5 days a week. New exercise routine: walking. Diet regimen was discussed and plan is Weight Watchers,TOPS, or similar program. reports that she has [...] has been established and reviewed with the patient. LUCERO KNOX MD [facility] documented in this encounter Nursing Notes 12/05/2012 10:30 AM CDT >> BEE CHIEM MonDecember 05, 2012 10:36 AM Patient presents with: Pre Visit Planning - Done Wellness Visit Initial BP 131/60 Pulse 65 Temp 98.8 ??F (37.1 ??C) (Tympanic) Ht 5' 7 (1.702 m) Wt 414 lb 5 oz (187.931 kg) BMI 64.89 kg/m2 Estimated Body mass index is 64.89 kg/(m^2) as calculated from the following: Height as of this encounter: 5' 7(1.702 m). Weight as of this encounter: 414 lb 5 oz(187.931 kg). BP completed using cuff size: X-large Bee Hensley THERAPEUTIC SPECIALIST documented in this encounter Plan of Treatment Upcoming Encounters Date Type Specialty Care Team Description 11/15/2022 Virtual Visit Pharm Haylie Gonzalez, [facility] [address] [facility] [address] [place] [phone] (Wo rk) 11/15/2022 Virtual Visit IM/PedYane Muir MD [address] [facility] [place] [phone] (Wo rk) 03/03/2023 Virtual Visit Neurology Erlinda Barber MD 420 [facility] [address] [place], [place] [phone] (Wo winter) Scheduled Referrals Name Type Priority Associated Diagnoses Order S chedule BARIATRIC ADULT REFERRAL Referral Routine Morbid obesity ( H) Ordered: 12/05/2012 documented as of this encounter Visit Diagnoses Diagnosis Medicare annual wellness visit, initial - Primary Routine general medical examination at a health care facility Essential hypertension, benign Other pulmonary embolism and infarction Severe Obstructive Sleep Apnea [AHI 45] Obstructive sleep apnea (adult) (pediatr ic) Pre-diabetes Other abnormal glucose Morbid obesity (H) Morbid obesity Visit for screening mammogram Other screening mammogram Osteoporosis screening Special screening for osteoporosis Other lymphedema documented in this encounter Care Teams Truck Striker Relationship Specialty Start Date End Date Lucero Knox MD PCP - General Pediatrics 10/11/11 04/22/19 documented as of this encounter
--- OUTSIDE RECORDS SUMMARY | 2022-06-15 13:23 | XMS_ITS | Encounter Summary ---
:1945 Author Organization [facility] Address [address] [place] [address] Care Team Providers Name Role Phone Lucero Stevenson MD Primary Care Provider [phone] Reason for Visit Reason Onset Date Comments Orders 11/20/2012 Lab appt 11/26. Encounter Details Date Type Department Care Team Description 11/20/2012 Telephone [facility] Eag Lucero Falk Orders (Lab appt [facility] MD Annetta 11/26.) [place] [phone] [facility] [phone] [address] [place], [place] [address] (Wo rk) Social History [...] Miscellaneous Notes Telephone Encounter - Bee Hensley - 11/21/2012 8:05 AM CDT Notified pt she does not need to fast for lab appt, she is aware. Bee Hensley CMA Telephone Encounter - Lucero Stevenson MD - 11/21/2012 7:57 AM CDT Orders placed. Please let her know she does not need to have cholesterol done this year as her LDL has always been very good. Lucero Stevenson MD Telephone Encounter - Danni Marcus - 11/20/2012 3:24 PM CDT Patient would like to come in for lab work prior to her physical. Lab appointment scheduled on 11/26/12. Please place lab orders. CHOL 148 05/31/2011 HDL 41 05/31/2011 LDL 79 05/31/2011 TRIG 140 05/31/2011 CHOLHDLRATIO 3.6 05/31/2011 Last Basic Metabolic Panel: NA 138 12/03/2011 POTASSIUM 4.3 12/03/2011 CHLORIDE 101 12/03/2011 TOMA 9.2 12/03/2011 CO2 24 12/03/2011 BUN 18 12/03/2011 CR 0.57 12/03/2011 GLC 95 12/03/2011 Orders begun. Ashli Marcus RN documented in this encounter Plan of Treatment Upcoming Encounters Date Type Specialty Care Team Description 11/15/2022 Virtual Visit Pharm Haylie Gonzalez, [facility] [address] [facility] [place] [address] (Wo rk) 11/15/2022 Virtual Visit IM/Peds Yane Barraza MD [address] [facility] [place] [address] (Wo rk) 03/03/2023 Virtual Visit Neurology Erlinda Barber MD 420 [facility] [address] [place], [place] [address] (Wo rk) documented as of this encounter Visit Diagnoses Diagnosis Essential hypertension, benign - Primary Pre-diabetes Other abnormal glucose CARDIOVASCULAR SCREENING; LDL GOAL LESS THAN 130 documented in this encounter Care Teams Cnc Specialist Relationship Specialty Start Date End Date Lucero Stevenson MD PCP - General Pediatrics 10/11/11 04/22/19 documented as of this encounter
--- OUTSIDE RECORDS SUMMARY | 2022-06-15 13:23 | XMS_ITS | Encounter Summary ---
:1945 Author Organization [facility] Address [address] [place] [address] Care Team Providers Name Role Phone Lucero Stevenson MD Primary Care Provider [phone] Reason for Visit Reason Comments Derm Problem Encounter Details Date Type Department Care Team Description 03/19/2013 Office Visit [facility] hCandler Mckeon, Juan Pablo [place] MD (Primary Dx) [address] [facility] [place] [address] [place] [phone] [place] [address] 560 Social History Tobacco Use Types Packs/Day Years [...] Reading Time Taken Comments Blood Pressure 132/78 03/19/2013 4:28 PM CDT Pulse 69 03/19/2013 4:28 PM CDT Temperature 36.6 ??C (97.8 ??F) 03/19/2013 4:28 PM CDT Respiratory Rate 18 03/19/2013 4:28 PM CDT Oxygen Saturation 97% 03/19/2013 4:28 PM CDT Inhaled Oxygen Concentration - - Weight 188.6 kg (415 lb 12.8 oz) 03/19/2013 4:28 PM CDT Height 170.2 cm (5' 7) 03/19/2013 4:28 PM CDT Body Mass Index 65.12 03/19/2013 4:28 PM CDT documented in this encounter Patient Instructions Patient InstructionsChandler Mckeon - 03/19/2013 5:06 PM CDT Take fluconazole once weekly for the next 3 weeks to treat a likely tinea corporis infection (fungalinfection of the skin). Use bacitracin on the lesion on your back. Have your INR checked on 04/01 as scheduled. If other symptoms develop or new rashes develop, call the clinic or return for evaluation. documented in this encounter Progress Notes Anant Terry MD - 03/19/2013 5:04 PM CDT ATTENDING PHYSICIAN: I have discussed this patient's care with Dr. Mckeon and agree with his history, exam, assessment and recommendations as above. Anant Terry MD Chandler Mckeon - 03/19/2013 4:24 PM CDT SUBJECTIVE: Charlette Brush is a 68 year old female who presents to clinic today for evaluation of a left arm rash present for 1 day. Has a red spot on left inner forearm. Noticed the spot after lunch today. It is circular shape with redness on the outside of the hoopa and white in the middle. Does not itch and is not spreading. When she noticed the spot it was raised and now it has flattened. Whit Millery, CARAMEL MAKER Rash on left arm. Dorsal aspect. Noticed by her sister while they were eating lunch today. She thinks it has been present for about one day. Red ring with central clearing in the middle. Red area as initially raised, no flat. Not painful or itchy. No trauma. No known tick exposures. Has a few red spots on her back, no other similar rashes. No fever, chills, sweats, nausea. Recently pushing grocery cart with forearms, did not wash handles, thinks this exposure may have contributed. Followed by dermatology for atopic dermatitis. Due for f/u soon. ROS: 4 point ROS including Respiratory, CV, GI and , other than that noted in the HPI, is negative Problem list and histories reviewed & adjusted, as indicated. Patient Active Problem List Diagnosis ??? Essential hypertension, benign ??? Other pulmonary embolism and infarction ??? Morbid obesity ??? Other lymphedema ??? Severe Obstructive Sleep Apnea [AHI 45] ??? CARDIOVASCULAR SCREENING; LDL GOAL LESS THAN 130 ??? Dermatitis, stasis ??? Advanced directives, counseling/discussion ??? Health Half-Way ??? Binge eating ??? Eczema ??? Pre-diabetes ??? Vitamin d deficiency Past Surgical History Procedure Date ??? Cholecystectomy, open 1970 ? ? Tonsillectomy & adenoidectomy History Substance Use Topics ??? Smoking status: Never Smoker ??? Smokeless tobacco: Never Used ??? Alcohol Use: No Family History Problem Relation Age of Onset ??? C.A.D. Paternal Grandmother ??? Diabetes No family hx of ??? Hypertension Mother ??? Hypertension Sister ??? Stroke Maternal Grandmother age 62 ??? Breast CA Paternal Aunt x3 ??? Prostatic CA Father ??? Thyroid Mother ??? GI Brother irritable bowel ??? GI Sister ciliac disease Current Outpatient Prescriptions Medication Sig ??? fluconazole (DIFLUCAN) 100 MG tablet Take 1.5 tablets (150 mg) by mouth every 7 days Take once weekly for 3 weeks. ??? triamterene-hydrochlorothiazide (DYAZIDE) 37.5-25 MG per capsule Take 1 capsule by mouth every morning. ??? losartan (COZAAR) 100 MG tablet Take 1 tablet by mouth daily. ??? atenolol (TENORMIN) 25 MG tablet Take 1 tablet by mouth 2 times daily. ??? Cholecalciferol (VITAMIN D PO) Take 10,000 Units by mouth. ??? warfarin (COUMADIN) 10 MG tablet Take 1 tablet by mouth daily. or as directed by INR clinic ??? desoximetasone (TOPICORT) 0.05 % GEL Apply 1 g topically two times daily. ??? hydrocortisone 2.5 % ointment Daily as needed ??? ORDER FOR DME Auto-CPAP: Max 11 cm H2O, Min 11cm H2O Continuous, Lifetime need and heated humidity. ??? cetirizine (ZYRTEC) 10 MG tablet Take 10 mg by mouth every evening. ??? acetaminophen (TYLENOL) 325 MG tablet Take by mouth as needed. Allergies Allergen Reactions ??? Bactroban (Mupirocin Calcium) Rash ??? Cephalexin Keflex - hives ??? Lanolin skin irritation ??? Lisinopril cough ??? Neomycin skin irritation ??? Penicillins hives General: Alert, oriented, morbidly obese female, in no acute distress. HEENT: No bruising, masses, or trauma. No conjunctival erythema. Oropharynx non- erythematous. Moist oral mucosa. Neck: Supple. Respiratory: Breathing comfortably on room air. Extremities: Warm, well perfused. Skin: There is a well circumscribed erythematous ring measuring approximately 2 cm in diameter over the medial dorsal aspect of the mid forearm. There is central clearing. No induration or tenderness to palpation. No drainage from the lesion. Erythema is blanchable. There is a small area of erythema over the central lower back with 1-2mm of central excoriation. Neuro: PERRL. EOMI. No facial asymmetry or sensory loss. Hearing grossly intact bilaterally. Speech clear. Sensation grossly normal. A/P: 68y F w/ a hx of atopic dermatitis and morbid obesity presenting with a 1 day hx of a well circumscribed erythematous rash on the left dorsal arm. Rash appears most consistent with tinea corporis. Ddx given target-like appearance would include erythema migrans 2/2 Lyme, however history does not support this diagnosis. Patient reports that with previous allergy testing, it was recommended by her weapons officer that she avoid topical antifungal therapy. -fluconazole 150mg po once weekly for 3 doses beginning today -if rash worsens or fails to improve, recommended call or return for further evaluation, would againconsider Lyme and consider serologic studies or empiric tx with doxycycline -recommended topical bacitracin to lesion on lower back -pt to have INR checked on 04/01 (discussed small risk of bleeding due to possibility that fluconazole may increase vitamin K antagonist concentration) as scheduled The plan of care was discussed with supervising physician Dr Anant Terry. Chandler Mckeon MD, MPH Internal Medicine-Pediatrics, PGY-4 documented in this encounter Nursing Notes 03/19/2013 3:45 PM CDT >> WHIT Goncalves EDIS Vogt Mar 19, 2013 4:31 PM Patient presents with: Derm Problem Initial BP 132/78 Pulse 69 Temp 97.8 ??F (36.6 ??C) (Tympanic) Resp 18 Ht 5' 7 (1.702 m) Wt 415 lb 12.8 oz (188.606 kg) BMI 65.12 kg/m2 SpO2 97% Estimated Body mass index is 65.12 kg/(m^2) as calculated from the following: Height as of this encounter: 5' 7(1.702 m). Weight as of this encounter: 415 lb 12.8 oz(188.606 kg). BP completed using cuff size: large on the forearm. Whit Claros CMA documented in this encounter Plan of Treatment Upcoming Encounters Date Type Specialty Care Team Description 11/15/2022 Virtual Visit Pharm D Haylie Cheung, [facility] [address] [facility] [place] [address] (Lena max) 11/15/2022 Virtual Visit IM/Peds Yane Barraza MD [address] [facility] [place] [address] (Lena max) 03/03/2023 Virtual Visit Neurology Erlinda Barber MD [address] [facility] [address] [place] [address] (Lena max) documented as of this encounter Visit Diagnoses Diagnosis Tinea corporis - Primary Dermatophytosis of the body documented in this encounter Care Teams Mortar Maker Relationship Specialty Start Date End Date Lucero Stevenson MD PCP - General Pediatrics 10/11/11 04/22/19 documented as of this encounter
--- OUTSIDE RECORDS SUMMARY | 2022-06-15 13:23 | XMS_ITS | Encounter Summary ---
:1945 Author Organization [place] Address [address] [place] [address] Care Team Providers Name Role Phone Lucero Stevenson MD Primary Care Provider [phone] Reason for Visit Reason Comments Anticoagulation Encounter Details Date Type Department Care Team Description 07/22/2013 Allied Health/Nurse [facility] Eag an Anticoagulation Visit [address] [facility] [place] [address] Social History Tobacco Use [...] this encounter Progress Notes Susie Murphy - 07/22/2013 9:46 AM CST ANTICOAGULATION FOLLOW-UP CLINIC VISIT Patient Name: Charlette Stilesalison Date: 07/22/2013 Contact Type: Face to Face SUBJECTIVE: Bleeding Signs/Symptoms: None Thromboembolic Signs/Symptoms: None Medication Changes: No Dietary Changes: No Bacterial/Viral Infection: No Missed Coumadin Doses: None Other Concerns: No ASSESSMENT/PLAN: See: ANTICOAGULATION [facility] flow sheet. [facility] Susie Murphy RN DYER documented in this encounter Plan of Treatment Upcoming Encounters Date Type Specialty Care Team Description 11/15/2022 Virtual Visit Pharm Haylie Gonzalez, [facility] [address] [facility] [address] [place], [place] [phone] (Wo rk) 11/15/2022 Virtual Visit IM/Peds Yane Barraza MD [address] [facility] [address] [place] [phone] (Wo rk) 03/03/2023 Virtual Visit Neurology Erlinda Barber MD [address] [facility] [address] [place], [place] [phone] (Wo rk) documented as of this encounter Procedures Procedure Name Priority Date/Time Associated Diagnosis Comme nts INR POINT OF CARE Routine 07/22/2013 senior living (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
--- OUTSIDE RECORDS SUMMARY | 2022-06-15 13:23 | XMS_ITS | Encounter Summary ---
:1945 Author Organization [facility] Address [address] [place] [address]. [place] [address] Care Team Providers Name Role Phone Lucero Stevenson MD Primary Care Provider [phone] Encounter Details Date Type Department Care Team Description 11/26/[address] [facility] Eag an Pre-diabetes; [address] CARDIOVASCULAR SCREENING; LD L GOAL LESS THAN 130; [place] [address] Essential hypertension, josy [phone] Social History Tobacco Use Types Packs/Day Years [...] Team Description 11/15/2022 Virtual Visit Haylie Wakefield, [facility] [address] [place] [address] (Wo rk) 11/15/2022 Virtual Visit IM/Yane Mathias MD [address] [facility] [place] [phone] (Wo rk) 03/03/2023 Virtual Visit Neurology Erlinda Barber MD [address] [facility] [address] [place] [address] (Wo rk) documented as of this encounter Procedures Procedure Name Priority Date/Time Associated Comments Diagnosis ALBUMIN RANDOM URINE Routine 11/26/2012 8:28 AM Essential R esults for this QUANTITATIVE CDT hypertension, procedure are in benign the results section. HEMOGLOBIN A1C Routine 11/26/2012 8:28 AM Pre-diabetes Results for this CDT CARDIOVASCULAR procedure are in SCREENING; LDL GOAL the resu lts LESS THAN 130 section. COMPREHENSIVE Routine 11/26/2012 8:28 AM Essential Results for this METABOLIC PANEL CDT hypertension, procedure a re in benign the results Pre-diabetes section. documented in this encounter Results Microalbumin quantitative random urine (11/26/2012 8:28 AM CDT) Component Value Ref Test Analysis Performed At Patholo gist Range Method Time Signature Creatinine 34 mg/dL [facility] Urine [facility] Albumin Urine <5 mg/L [facility] mg/L Urine Microalbumin lowest re portable value has been changed from 2 mg/L to 5 [facility] mg/L due to a methodology change on October. [facility] Albumin Urine Unable to 0 - 25 [facility] mg/g Cr calculate mg/g Cr [facility] Specimen Anatomical Collection Method Collection Time Receive d Time (Source) Location / / Volume Laterality Urine specimen 11/26/2012 8:28 AM 013 8:29 (specimen) CDT AM CDT Lucero Stevenson MD LAB - URINE ORDERABLES Performing Organization Address City/State/ZIP Code Phon e Number [facility] [address] [place] [address] [facility] Comprehensive metabolic panel (11/26/2012 8:28 AM CDT) athologist Signature Sodium 137 133 - 144 [place] mmol/L CLINIC LAB Potassium 4.1 3.4 - 5.3 [facility] mmol/L [facility] Chloride 101 94 - 109 [facility] mmol/L [facility] LAB Carbon Dioxide 25 20 - 32 [place] mmol/L [facility]IC LAB Anion Gap 10 6 - 17 [place] mmol/L [facility] LAB Glucose 96 60 - 99 [facility] mg/dL CLINIC LAB Comment: Fasting specimen Urea Nitrogen 20 7 - 30 mg/dL [facility] Creatinine 0.59 0.52 - 1.04 mg/dL [place] [facility] GFR Estimate >90 >60 mL/min/1.7m2 [place] [facility] GFR Estimate If Black >90 >60 mL/min/1.7m2 F [facility] Calcium 9.4 8.5 - 10.4 mg/dL [facility] Bilirubin Total 0.3 0.2 - 1.3 mg/dL [facility] Albumin 3.8 3.3 - 4.9 g/dL [facility] Comment: Reference range changed on 03/18. Protein Total 7.5 6.8 - 8.8 g/dL [facility] Comment: As of 07, reference range reflects plasma specimen type. Alkaline Phosphatase 118 40 - 150 U/L [facility] ALT 26 0 - 50 U/L [place] [facility] IC LAB AST 26 0 - 45 U/L [facility] CLIN IC LAB Specimen Anatomical Collection Method Collection Time Receive d Time (Source) Location / / Volume Laterality Blood specimen 11/26/2012 8:28 AM 013 8:29 (specimen) CDT AM CDT Lucero Stevenson MD LAB - BLOOD ORDERABLES Performing Organization Address City/State/ZIP Code Phon e Number [facility] [place] [address] [place] [address] [facility] [address] [place] [address] Hemoglobin A1c (11/26/2012 8:28 AM CDT) P athologist Signature Hemoglobin A1C 5.6 4.3 - 6.0 [facility] % CLINIC LAB Specimen Anatomical Collection Method Collection Time Receive d Time (Source) Location / / Volume Laterality Blood specimen 11/26/2012 8:28 AM 013 8:29 (specimen) CDT AM CDT Lucero Stevenson MD LAB - BLOOD ORDERABLES Performing Organization Address City/State/ZIP Code Phon e Number [facility] [address] [place] [address] [phone] [facility] [address] [place] [address] documented in this encounter Visit Diagnoses Diagnosis Pre-diabetes Other abnormal glucose CARDIOVASCULAR SCREENING; LDL GOAL LESS THAN 130 Essential hypertension, benign documented in this encounter Care Teams System Support Specialist Relationship Specialty Start Date End Date Lucero Stevenson MD PCP - General Pediatrics 10/11/11 04/22/19 documented as of this encounter
--- OUTSIDE RECORDS SUMMARY | 2022-06-15 13:23 | XMS_ITS | Encounter Summary ---
:1945 Author Organization [facility] Address [address] [place] [address] Care Team Providers Name Role Phone Lucero Stevenson MD Primary Care Provider [phone] Encounter Details Date Type Department Care Team Description 12/13/2012 Results Only [facility] Lucero Stevenson [address] [facility] [place] [address] [facility] [phone] [address] [place], [place] [address] (Wo rk) Social History [...] Haylie Cheung, [facility] [address] [facility] [place] [address] (Wo rk) 11/15/2022 Virtual Visit IM/Peds Yane Barraza MD [address] [facility] [place] [address] (Wo rk) 03/03/2023 Virtual Visit Neurology Erlinda Barber MD [address] [facility] [address] [place] [address] (Wo rk) Scheduled Orders Name Type Priority Associated Diagnoses Order S chedule DX Hip/Pelvis/Spine Imaging Ordered: 12/13/2012 documented as of this encounter Visit Diagnoses Not on filedocumented in this encounter Care Teams Equipment Manager Relationship Specialty Start Date End Date Lucero Stevenson MD PCP - General Pediatrics 10/11/11 04/22/19 documented as of this encounter
--- OUTSIDE RECORDS SUMMARY | 2022-06-15 13:23 | XMS_ITS | Encounter Summary ---
:1945 Author Organization [facility] Address [address] [place] [address] Care Team Providers Name Role Phone Lucero Stevenson MD Primary Care Provider [phone] Reason for Visit Reason Comments Anticoagulation Encounter Details Date Type Department Care Team Description 02/18/2013 Allied Health/Nurse [facility] Eag an Anticoagulation Visit [address] [facility] [place] [address] Social History Tobacco [...] this encounter Progress Notes Qing Guy - 02/18/2013 8:59 AM CDT ANTICOAGULATION FOLLOW-UP CLINIC VISIT Patient Name: Charlette Brush Date: 02/18/2013 Contact Type: Face to Face SUBJECTIVE: Bleeding Signs/Symptoms: None Thromboembolic Signs/Symptoms: None Medication Changes: No Dietary Changes: No Bacterial/Viral Infection: No Missed Coumadin Doses: None Other Concerns: No ASSESSMENT/PLAN: See: ANTICOAGULATION QIC flow sheet. INR Today: 2.6 Current Warfarin Dose: 65 mg in the past 7 days Range: Therapeutic INR Goal: 2.0-3.0 New Warfarin Dose: same, 10mg MTWTSS, 5mg F = 65 Next INR in: 6 weeks [facility] Qing Guy RN documented in this encounter Nursing Notes 02/18/2013 8:45 AM CDT >> QING GUY Mon Feb 18, 2013 9:08 AM Charlette Carreon Trudi presents in clinic for INR. Estimated Body mass index is 64.89 kg/(m^2) as calculated from the following: Height as of 12/05/12: 5' 7(1.702 m). Weight as of 12/05/12: 414 lb 5 oz(187.931 kg). Qing Guy RN documented in this encounter Plan of Treatment Upcoming Encounters Date Type Specialty Care Team Description 11/15/2022 Virtual Visit Pharm Haylie Gonzalez, [facility] [address] [facility] [address] (Lena max) 11/15/2022 Virtual Visit [place] [address] [place] [address] [place] [phone] (Lena max) 03/03/2023 Virtual Visit Neurology Erlinda Barber MD [address] [facility] [address] [place], [place] [phone] (Lena max) documented as of this encounter Procedures Procedure Name Priority Date/Time Associated Diagnosis Comme nts INR POINT OF CARE Routine 02/18/2013 [facility] (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 documented in this encounter Results INR point of care (02/18/2013) P athologist Signature INR Point of 2.6 0.86 - [facility] Care 1.14 LAB Lucero Stevenson MD LAB - BLOOD ORDERABLES Performing Organization Address City/State/ZIP Code Phon e Number [facility] documented in this encounter Visit Diagnoses Diagnosis [facility] (current) use of anticoagulant s - Primary Long-term (current) use of anticoagulant s documented in this encounter Care Teams Vortex Operator Relationship Specialty Start Date End Date Lucero Stevenson MD PCP - General Pediatrics 10/11/11 04/22/19 documented as of this encounter
--- OUTSIDE RECORDS SUMMARY | 2022-06-15 13:23 | XMS_ITS | Encounter Summary ---
:1945 Author Organization [place] Address [address] [place] [address]. [place] [address] Care Team Providers Name Role Phone Lucero Stevenson MD Primary Care Provider [phone] Reason for Visit Reason Comments Derm Problem Pt comes into the clinic tod ay for questions about medciation prescribed else where for ringworm. Encounter Details Date Type Department Care Team Description 03/26/2013 Office Visit Dermatology Chastity Montero Dermatitis (Primary 5th Floor, Clinic 5A MD Martha Dx) Roland Dickens 420 [facility] [address] [address] [place], [place] [phone] (Work) [phone] Social History Tobacco Use Types Packs/Day Years [...] documented as of this encounter Progress Notes Naomi Parkinson MD - 03/26/2013 1:49 PM CDT DERMATOLOGY FOLLOWUP VISIT HISTORY OF PRESENT ILLNESS: Charlette is a very pleasant 68-year-old female with a history of atopic dermatitis who presents today for followup regarding a new lesion on her arm. She reports she was out having lunch with her sister last Monday, and her sister commented on a bright red ring-shaped lesion that was present on her left forearm. Her sister was quite concerned that this represents Lyme disease. Charlette, herself, wondered if it was a manifestation of ringworm. She went to the Urgent Care and was started on oral fluconazole 1.5 tablets of the 100 mg tablets to be taken q.d. over 7 days. She has also started using her Topicort Gel 0.05% to the affected area. She reports it has improved much. It currently is only pale pink with minimal itch remaining. She denies any exposure to animals or affected persons. Of note, Charlette's dermatologic history is quite complex, as she is allergic to most topical regimens. No additional skin concerns today. PHYSICAL EXAMINATION: GENERAL: Charlette is a pleasant adult female who presents in no acute distress. She is alert and oriented x3. She is pleasant and cooperative with the exam. Andre skin type I. SKIN: A focused skin exam was done today of the face, neck, upper chest, upper back, upper and lowerextremities as they are exposed with short sleeves and shorts. Significant skin findings are as follows: There are multiple pale pink scaly papules and patches present on the bilateral upper extremities, varying in size from 2 mm in diameter to approximately 1 cm diameter. The lesion of interest is currently in a pale pink flat mildly scaly stage without clear annular component. The lower extremitiesshow significant lymphedema bilaterally as well as postinflammatory hyperpigmentation after venous stasis, right leg greater than left leg. She also has lymphedema of the bilateral upper extremities. No additional skin findings of concern today. ASSESSMENT AND PLAN: 1. Eczema. The lesion of concern is more likely to be due to nummular eczema rather than tinea corporis, as tinea is quite an unusual diagnosis to be found in adult women. The area is currently well treated and therefore a BRENDAN preparation is not of value at this stage. She has already undergone a signi ficant course of oral fluconazole treatment, and given the unclear initial diagnosis, clinical improvement, and the side effect profile of the oral medication, we would like to stop it now. She may continue her Topicort b.i.d. as needed to the affected areas. We also asked her to apply her Topicort more liberally to the affected upper extremities as she is developing a likely flare of her atopic dermatitis. Refill for Topicort as well as for hydrocortisone 2.5% ointment was provided. 2. Stasis dermatitis, currently well controlled. Return to clinic as needed. Dictated by Naomi Parkinson MD Resident .I was present for yancey portions of the history and exam. See resident note for pertinent history, exam, and treatment plan. Chastity Montero MD documented in this encounter Nursing Notes 03/26/2013 1:15 PM CDT >> DEV VALVERDE Mar 26, 2013 1:21 PM Patient presents with: Derm Problem - Pt comes into the clinic today for questions about medciation prescribed else where for ringworm. Sagrario Hernandez LPN documented in this encounter Plan of Treatment Upcoming Encounters Date Type Specialty Care Team Description 11/15/2022 Virtual Visit Pharm D Haylie Cheung, [facility] [address] [facility] [place] [address] (Lena max) 11/15/2022 Virtual Visit IM/Peds Yane Barraza MD [address] [facility] [place] [address] (Lena max) 03/03/2023 Virtual Visit Neurology Erlinda Barber MD 420 [facility] [address] [place] [address] (Lena max) documented as of this encounter Visit Diagnoses Diagnosis Dermatitis - Primary Contact dermatitis and other eczema, due to unspecified cause documented in this encounter Care Teams Records Management Assistant Relationship Specialty Start Date End Date Lucero Stevenson MD PCP - General Pediatrics 10/11/11 04/22/19 documented as of this encounter
--- OUTSIDE RECORDS SUMMARY | 2022-06-15 13:23 | XMS_ITS | Encounter Summary ---
:1945 Author Organization [place] Address [address] [place] [address] Care Team Providers Name Role Phone Lucero Stevenson MD Primary Care Provider [phone] Reason for Visit Reason Comments Anticoagulation Encounter Details Date Type Department Care Team Description 09/03/2012 Allied [facility]/Nurse [place] [facility] Eag an Anticoagulation Visit [address] [facility] [place] [address] Social History [...] this encounter Progress Notes Qing Guy - 09/03/2012 1:20 PM CST ANTICOAGULATION FOLLOW-UP CLINIC VISIT Patient Name: Charlette Brush Date: 09/03/2012 Contact Type: Face to Face SUBJECTIVE: Bleeding [...] weeks EA ANTICOAGULATION CLINIC Qing Guy RN SETTERS PRINTER documented in this encounter Nursing Notes 09/03/2012 8:45 AM CST >> QING GUY [facility] Sep 03, 2012 9:18 AM Charlette Carreon Trudi presents in clinic for INR. Estimated Body mass index is 62.34 kg/(m^2) as calculated from the following: Height as of 02/21/12: 5' 7(1.702 m). Weight as of 04/14/12: 398 lb(180.532 kg). Qing Guy RN documented in this encounter Plan of Treatment Upcoming Encounters Date Type Specialty Care Team Description 11/15/2022 Virtual Visit Pharm Haylie Goznalez, [facility] [address] [facility] [place] [address] (Lena max) 11/15/2022 Virtual Visit IM/Peds Yane Barraza MD [address] [facility] [place] [phone] (Lena max) 03/03/2023 Virtual Visit Neurology Erlinda Barber MD [address] [facility] [address] [place] [address] (Lena max) documented as of this encounter Procedures Procedure Name Priority Date/Time Associated Diagnosis Comme nts INR POINT OF CARE Routine 09/03/2012 Encounter for long-term Results for this (current) use of procedure a re in the anticoagulants results secti on. 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
--- OUTSIDE RECORDS SUMMARY | 2022-06-15 13:23 | XMS_ITS | Encounter Summary ---
:1945 Author Organization [place] Address [address] [place] [address] Care Team Providers Name Role Phone Lucero Stevenson MD Primary Care Provider [phone] Reason for Visit Reason Comments Radiology Visit Encounter Details Date Type Department Care Team Description 12/13/2012 Orders Only [facility] Ost eoporosis screening [place] (Primary Dx) [address] [place] [address] [address] [place] [address] Social History Tobacco Use Types Packs/Day Years [...] [place], [facility] [address] [facility] [place] [address] (Wo winter) 11/15/2022 Virtual Visit IM/Peds Yane Barraza MD [address] [facility] [place] [address] (Lena max) 03/03/2023 Virtual Visit Neurology Erlinda Barber MD [address] [facility] [address] [place], [place] [address] (Lena max) documented as of this encounter Procedures Procedure Name Priority Date/Time Associated Diagnosis Comme nts DX HIP/PELVIS/SPINE Routine 12/13/2012 Osteoporosis screenin g Results for this procedure are i n the results section . documented in this encounter Results DX Hip/Pelvis/Spine (12/13/2012) Anatomical Region Laterality Modality Dexa Other Impressions 12/13/2012 BONE DENSITOMETRY [facility] December 13, 2012 PATIENT: ??Charlette Brush CHART: [id number] : ??1945 AGE: ??67 year old SEX: ??female REFERRING PHYSICIAN: ??Lucero Stevenson MD PROCEDURE: ??Bone density scanning was p erformed using DEXA technology performed on a Mobilewalla Scanner. ??Reporting is completed in the form of a T-score. ??Th e T-score represents the standard deviation from peak bone mass b ased on a young healthy adult. Bag Adjuster performing scan: ??Dana Parra REFERENCE T-SCORES: ? Normal ?-1.0 and greater ? Osteopenia ?Less than -1.0 and great er than -2.5 Osteoporosis ?? -2.5 and less ? INDICATIONS: ??Post-menopausal, Long ter m oral corticosteroid therapy CURRENT TREATMENT: ??Vitamin D FINDINGS: ?Distal Forearm: T-scor e 1.5 The patient exceeds the weight limit for the machine so only forearm is performed. IMPRESSION: Normal bone mineral density. Comparison is made to previous study fredrick ed 03/09/09. There has been no significant change in bone density of the distal forearm. Recommendations include ensuring adequat e Calcium (1200 mg/d) and Vitamin D (at least 800 IU/d). The current NOF Guidelines recommend fran atment for patients with prior hip or vertebral fracture, T-score -2.5 or below, or 10 year risk of any major osteoporotic frac ture >20% or 10 year risk of hip fracture >3%, as calculated using the FRAX calculator (www.shef.ac.uk/FRAX or you can google FRAX). ?? This patient's risks based on available information, with the use of FRAX, are 5.8 % for major osteoporoti c fracture and 0.5 % for hip fracture. Based on these guidelines, treatment (in addition to calcium and vitamin D) is not recommended for this p atient, after ruling out other causes of osteoporosis. This is meant as an aid to clinical deci danyell making; one must still use clinical judgement. Follow up can be considered in 5 years. For patients eligible for Medicare, routine testing is allowed onc e every two years. The testing frequency can be increased to on e year for patients who have rapidly progressing disease, those who are receiving or discontinuing medical therapy to restore bone mass, or have additional risk factors. Latia Hagan M.D. Electronically signed Lucero Stevenson MD IMG DEXA ORDERABLES documented in this encounter Visit Diagnoses Diagnosis Osteoporosis screening - Primary Special screening for osteoporosis documented in this encounter Care Teams Circulation Librarian Relationship Specialty Start Date End Date Lucero Stevenson MD PCP - General Pediatrics 10/11/11 04/22/19 documented as of this encounter
--- OUTSIDE RECORDS SUMMARY | 2022-06-15 13:23 | XMS_ITS | Encounter Summary ---
:1945 Author Organization [place] Address [address] [place] [address]. [place] [address] Care Team Providers Name Role Phone Lucero Stevenson MD Primary Care Provider [phone] Reason for Visit Reason Comments Derm Problem Charlette is here today for a no nhealing wound on her back x1 year. She states it is doing slightl y better Encounter Details Date Type Department Care Team Description 06/25/2013 Office Visit Dermatology Chastity Montero Ulcer, with 5th Floor, Clinic 5A MD Martha unspecified severity Roland Bangensteen 420 [facility] (Jessica antonia Dx) Building [facility] [address] [place] [address] [phone] [address] (Work) [phone] Social History Tobacco Use Types Packs/Day Years [...] Sign Reading Time Taken Comments Blood Pressure 146/77 06/25/2013 10:56 AM PUBLISHING MANAGER Pulse 74 06/25/2013 10:56 AM PUBLISHING MANAGER Temperature - - Respiratory Rate - - Oxygen Saturation - - Inhaled Oxygen Concentration - - Weight - - Height - - Body Mass Index - - documented in this encounter Progress Notes Chastity Montero MD - 06/25/2013 12:22 PM CST HISTORY OF PRESENT ILLNESS: The patient is a 68-year-old woman well known to me with a history of nummular dermatitis, stasis dermatitis and multiple contact allergies. She presented with a nonhealing sore on her back which began in 08/2012 and has been difficult to heal. At the last visit 1 month ago, it was measured at 1 cm, a photograph was taken. She had been applying bacitracin and was having anirritation response or contact response to it and we had her discontinue it. At that time, we had her begin hydrocortisone to the surrounding erythema and Vaseline to the central ulceration. She has tried to work with multiple bandages, unfortunately most of them tend to fall off and migrate. It is very difficult for her to reach this area. Her skin otherwise has done well. She has had small patches of eczema that tend to come and go. She has her hydrocortisone 2.5% ointment or her desoximetasone 0.05% gel to use as needed. She does need to increase her moisturizer and has her Vanicream to use. Her stasis has been doing as well. PHYSICAL EXAMINATION: The patient is a well-appearing female in no acute distress. Please note the nursing note for vital signs. She does have eczematous plaques of her left dorsal hand, right arm. Legs today are dry but overall no ulceration, looking good. On her lower midback, she has a 2 cm ulcer. It is nonpurulent. It has an eczematous surround. ASSESSMENT AND PLAN: 1. Nonhealing pressure ulcer. Has expanded, it is now 2 cm compared to the 1 cm a month ago. At thispoint we will try Vaseline under DuoDERM occlusion. The nurses are working with it. She has had multiple contactants. If she seems to be having a reaction to the DuoDERM, I have asked her to stop it and give us a call. She should continue her hydrocortisone to the areas surrounding it. 2. Nummular dermatitis and stasis dermatitis. Continue to use her hydrocortisone and desoximetasone as needed. I will plan to see her back in 6 weeks. ISHING MANAGER documented in this encounter Nursing Notes 06/25/2013 10:00 AM CST >> GLENROY GAO CMA Tue Jun 25, 2013 10:58 AM Patient presents with: Derm Problem - Charlette is here today for a nonhealing wound on her back x1 year. She states it is doing slightly better ABBI Wharton documented in this encounter Plan of Treatment Upcoming Encounters Date Type Specialty Care Team Description 11/15/2022 Virtual Visit Pharm Haylie Gonzalez, [facility] [address] [facility] [place] [address] (Wo rk) 11/15/2022 Virtual Visit IM/Peds Yane Barraza MD [address] [facility] [address] [place] [phone] (Wo rk) 03/03/2023 Virtual Visit Neurology Erlinda Barber MD 420 [facility] 295 [place], [place] [phone] (Wo rk) documented as of this encounter Visit Diagnoses Diagnosis Ulcer, with unspecified severity - Prima ry documented in this encounter Care Teams Teaching Pastor Relationship Specialty Start Date End Date Lucero Stevenson MD PCP - General Pediatrics 10/11/11 04/22/19 documented as of this encounter
--- OUTSIDE RECORDS SUMMARY | 2022-06-15 13:23 | XMS_ITS | Encounter Summary ---
:1945 Author Organization [place] Address [address] [place] [address]. [place] [address] Care Team Providers Name Role Phone Lucero Stevenson MD Primary Care Provider [phone] Reason for Visit Reason Comments Derm Problem Patient is being seen today for a sore spot on her back that is not healing. Encounter Details Date Type Department Care Team Description 05/20/2013 Office Visit Dermatology Chastity Montero Ulcer, with 5th Floor, Clinic 5A MD Martha unspecified severity Roland Bangensteen 420 [facility] (Jessica antonia Dx) Building [facility] [address] [address] [place], [place] [phone] (Work) [phone] Social History Tobacco Use Types Packs/Day Years [...] Sign Reading Time Taken Comments Blood Pressure 133/75 05/20/2013 10:04 AM PROFESSIONAL DRIVER Pulse 70 05/20/2013 10:04 AM PROFESSIONAL DRIVER Temperature - - Respiratory Rate - - Oxygen Saturation - - Inhaled Oxygen Concentration - - Weight 188.2 kg (415 lb) 05/20/2013 10:04 AM PROFESSIONAL DRIVER Height 170.2 cm (5' 7) 05/20/2013 10:04 AM PROFESSIONAL DRIVER Body Mass Index 65 05/20/2013 10:04 AM PROFESSIONAL DRIVER documented in this encounter Progress Notes Elissa Ambrosio CMA - 05/23/2013 10:46 AM CST Images from the original note were not included. Pictures taken of patient today to be placed in chart for future reference. ESSIONAL DRIVER Chastity Montero MD - 05/20/2013 10:46 AM CST DERMATOLOGY PROGRESS NOTE 05/20/2013 Charlette Brush CC: Non-healing sore HPI: Charlette Brush is a 68 year old female with a history of nummular eczema, stasis dermatitis, and significant allergies who presents for evaluation of a non- healing sore on her lower back. Ms. Brush reports that she first developed a small sore in August 2012 that has failed to heal and has become more red over time. It is painful to her when she is laying down sleeping, but otherwise does not cause significant discomfort. She has been applying hydrocortisone ointment to the red areas around the sore, and had been applying bacitracin to the area daily until a week ago. She discontinued the bacitracin because she felt that she was developing an allergy to it as the sore was becoming markedly more red. Otherwise, she feels that her eczema is stable and has no other skin concerns at this time. PMH: Past Medical History Diagnosis Date ??? benign positional vertigo 09/08/2004 s/p canolith repositioning 07/21 ??? Other lymphedema 11/04/2003 ??? BENIGN HYPERTENSION 07/30/2003 ??? PULM EMBOLISM/INFARCT NOS 11/20/2001 ??? CEFERINO (obstructive sleep apnea) nightly CPAP ??? GERD (gastroesophageal reflux disease) MEDS: Current Outpatient Prescriptions Medication Status ??? desoximetasone (TOPICORT) 0.05 % GEL Active ??? hydrocortisone 2.5 % ointment Active ??? fluconazole (DIFLUCAN) 100 MG tablet Active ??? triamterene-hydrochlorothiazide (DYAZIDE) 37.5-25 MG per capsule Active ??? losartan (COZAAR) 100 MG tablet Active ??? atenolol (TENORMIN) 25 MG tablet Active ??? Cholecalciferol (VITAMIN D PO) Active ??? warfarin (COUMADIN) 10 MG tablet Active ??? ORDER FOR DME Active ??? cetirizine (ZYRTEC) 10 MG tablet Active ??? acetaminophen (TYLENOL) 325 MG tablet Active ALLERGIES: Allergies Allergen Reactions ??? Cephalexin Hives Keflex - hives ??? Lanolin Other (See Comments) skin irritation ??? Lisinopril cough ??? Neomycin Other (See Comments) skin irritation ??? Penicillins Hives ??? Bactroban (Mupirocin Calcium) Rash FAMILY HISTORY: Family History Problem Relation Age of Onset ??? C.A.D. Paternal Grandmother ??? Diabetes No family hx of ??? Hypertension Mother ??? Hypertension Sister ??? Stroke Maternal Grandmother age 62 ??? Breast CA Paternal Aunt x3 ??? Prostatic CA Father ??? Thyroid Mother ??? GI Brother irritable bowel ??? GI Sister ciliac disease SOCIAL HISTORY: History Substance Use Topics ??? Smoking status: Never Smoker ??? Smokeless tobacco: Never Used ??? Alcohol Use: No ROS: Per HPI. No other skin concerns. EXAM: BP 133/75 Pulse 70 Ht 1.702 m (5' 7) Wt 188.243 kg (415 lb) BMI 65.00 kg/m2 Gen: Ms. Brush is a 68yo obese female, appears stated age. She is well-appearing, alert and oriented x 3. She is very pleasant and cooperative with exam. Skin: A focused exam of the face, arms, and low back was performed today. On the central lower back,there is a 7x8cm patch of irregular erythema with satellite erythematous macules extending from the borders. In the center, there is a shallow 1cm ulcer with scant hemorrhagic crust. No warmth or fluctuance noted. No drainage appreciated. There are small circular eczematous patches with overlying finescale noted on the arms bilaterally and the top of the L buttock. There is significant perifollicular hyperpigmentation noted over the legs bilaterally. The remainder of the skin exam is unremarkable. ASSESSMENT/PLAN: 1) Ulcer - Non-healing lesion on lower back appears to be a small pressure ulcer with eczematous flare around the borders. Photos and measurements taken today. Advised patient to discontinue the bacitracin. Patient will continue to apply hydrocortisone to surrounding erythema twice daily, and will tryto apply vaseline to the central ulceration. Telfa applied over the wound today. Plan to measure ulcer again in 1 month. 2) Nummular eczema, stable - Patient will continue to apply hydrocortisone BID to areas of involvement as needed. Return to clinic in 1 month, or sooner if needed. Patient was seen and discussed with Dr. Montero. Radha Holcomb, MS4 Visiting Medical Student ([facility] [[email or web address]]) .The medical student acted as scribe for this encounter. The encounter documented above was completely performed by myself. Chastity Montero MD ESSIONAL DRIVER documented in this encounter Nursing Notes 05/20/2013 9:45 AM CST >> ALLYSON CASTELAN CMA Mon May 20, 2013 10:06 AM Patient presents with: Derm Problem - Patient is being seen today for a sore spot on her back that is not healing. Allyson Castelan MA documented in this encounter Plan of Treatment Upcoming Encounters Date Type Specialty Care Team Description 11/15/2022 Virtual Visit Haylie [place], [facility] [address] [facility] [place] [address] (Wo rk) 11/15/2022 Virtual Visit IM/Peds Yane Barraza MD [address] [facility] [place] [address] (Wo rk) 03/03/2023 Virtual Visit Neurology Erlinda Barber MD [address] [facility] [address] [place], [place] [address] (Wo rk) documented as of this encounter Visit Diagnoses Diagnosis Ulcer, with unspecified severity - Prima ry documented in this encounter Care Teams Plywood Stock Grader Relationship Specialty Start Date End Date Lucero Stevenson MD PCP - General Pediatrics 10/11/11 04/22/19 documented as of this encounter
--- OUTSIDE RECORDS SUMMARY | 2022-06-15 13:23 | XMS_ITS | Encounter Summary ---
:1945 Author Organization [facility] Address [address] [place] [address]. [place] [address] Care Team Providers Name Role Phone Lucero Stevenson MD Primary Care Provider [phone] Reason for Visit Reason Comments Derm Problem Pt comes into the clinic tod ay for atopic dermatitis. Pt reports flare-up on back. Encounter Details Date Type Department Care Team Description 10/10/2012 Office Visit Dermatology Chastity Montero CD (contact 5th Floor, Clinic 5A MD Martha dermatitis) (Primary [facility]ensteen [address]) Building [facility] [address] [address] [place], [place] [phone] [address] (Work) [phone] Social History Tobacco Use Types Packs/Day Years [...] Sign Reading Time Taken Comments Blood Pressure 184/78 10/10/2012 10:23 AM CDT Pulse 69 10/10/2012 10:23 AM CDT Temperature - - Respiratory Rate - - Oxygen Saturation - - Inhaled Oxygen Concentration - - Weight - - Height 170.2 cm (5' 7) 10/10/2012 10:23 AM CDT Body Mass Index - - documented in this encounter Progress Notes Chastity Montero MD - 10/10/2012 12:32 PM CDT Subjective: 67 yo F with history of atopic dermatitis, presenting for follow up of her dermatitis. She states that she was in [place] and has had some improvement in the dermatitis affecting her legs, and has had some lesions on her back that remain inflamed. She has been using TopiCort and hydrocortisone 2.5%. She is being fitted for hearing aids, and there is some concern that she may have an ear infection so she is going back for a return appointment this coming week. Objective: BP 184/78 Pulse 69 Ht 1.702 m (5' 7) Skin: anterior shins show improvement of the scaly lesions noted at the last visit, and has severe lymphedema. She has flat, punctate lesions involving the anterior thigh. Her back shows two flat, pinklesions without scale and skin tag. Andre skin type 1. Current Medications: Current Outpatient Prescriptions Medication Sig ??? warfarin (COUMADIN) 10 MG tablet Take 1 tablet by mouth daily. or as directed by INR clinic ??? losartan (COZAAR) 100 MG tablet Take 1 tablet by mouth daily. ??? triamterene-hydrochlorothiazide (DYAZIDE) 37.5-25 MG per capsule Take 1 capsule by mouth every morning. ??? atenolol (TENORMIN) 25 MG tablet Take 1 tablet by mouth 2 times daily. ??? desoximetasone (TOPICORT) 0.05 % GEL Apply 1 g topically two times daily. ??? hydrocortisone 2.5 % ointment Daily as needed ??? ORDER FOR DME Auto-CPAP: Max 11 cm H2O, Min 11cm H2O Continuous, Lifetime need and heated humidity. ??? cholecalciferol 29053 UNIT capsule Take 1 capsule by mouth once a week. ??? cetirizine (ZYRTEC) 10 MG tablet Take 10 mg by mouth every evening. ??? cholecalciferol (VITAMIN D) 1000 UNIT tablet Take 1,000 Units by mouth daily. ??? acetaminophen (TYLENOL) 325 MG tablet Take by mouth as needed. Assessment & Plan: 1. Atopic dermatitis: well managed with hydrocortisone cream 2.5 percent ointment and topicort 0.05%gel as needed 2. Stasis dermatitis well improved with elevation of legs. Radha No MD Internal medicine resident PGY-[address] Montero dermatology staff, who evaluated the patient as well. . .I was present for yancey portions of the history and exam. See resident note for pertinent history, exam, and treatment plan. Chastity Montero MD documented in this encounter Nursing Notes 10/10/2012 10:30 AM CDT >> EDIL HERNANDEZ LPN Wed Oct 10, 2012 10:26 AM Patient presents with: Derm Problem - Pt comes into the clinic today for atopic dermatitis. Pt reports flare-up on back. Edil Hernandez LPN documented in this encounter Plan of Treatment Upcoming Encounters Date Type Specialty Care Team Description 11/15/2022 Virtual Visit Pharm D Haylie Cheung, [facility] [address] [facility] [place] [address] (Lena max) 11/15/2022 Virtual Visit [place] [address] [place] [address] [place] [address] (Lena max) 03/03/2023 Virtual Visit Neurology Erlinda Barber MD 420 [facility] [address] [place] [address] (Lena max) documented as of this encounter Visit Diagnoses Diagnosis CD (contact dermatitis) - Primary Contact dermatitis and other eczema, due to unspecified cause documented in this encounter Care Teams Physical Therapy Manager Relationship Specialty Start Date End Date Lucero Stevenson MD PCP - General Pediatrics 10/11/11 04/22/19 documented as of this encounter
--- OUTSIDE RECORDS SUMMARY | 2022-06-15 13:23 | XMS_ITS | Encounter Summary ---
:1945 Author Organization [facility] Address [address] [place] [address] Care Team Providers Name Role Phone Lucero Stevenson MD Primary Care Provider [phone] Reason for Visit Reason Comments Anticoagulation Encounter Details Date Type Department Care Team Description 05/27/2013 [facility] Eag an Anticoagulation Visit 14[address] [...] this encounter Progress Notes Qing Guy - 05/27/2013 11:21 AM CST ANTICOAGULATION FOLLOW-UP CLINIC VISIT Patient Name: Charlette Brush Date: 05/27/2013 Contact Type: Face to Face SUBJECTIVE: Bleeding Signs/Symptoms: None Thromboembolic Signs/Symptoms: None Medication Changes: Has been taking more tylenol lately, up to 4 tabs (500mg each) daily. Dietary Changes: No Bacterial/Viral Infection: She is not sure if she has a cold or allergies. She has a runny nose (clear). Missed Coumadin Doses: None Other Concerns: No ASSESSMENT/PLAN: See: ANTICOAGULATION QIC flow sheet. INR Today: 3.5 Current Warfarin Dose: 60 mg in the past 7 days Range: Supratherapeutic INR Goal: 2.0-3.0 New Warfarin Dose: 5mg MTu, then back to 10mg TWTSS, 5mg MF = 60 Next INR in: 2 weeks Written instructions given to patient. ANTICOAGULATION CLINIC Qing Guy RN [employer]NER documented in this encounter Nursing Notes 05/27/2013 9:00 AM CST >> QING GUY Mon May 27, 2013 9:13 AM Charlette Carreon Trudi presents in clinic for INR. Estimated Body mass index is 65.00 kg/(m^2) as calculated from the following: Height as of 05/20/13: 5' 7(1.702 m). Weight as of 05/20/13: 415 lb(188.243 kg). Qing Guy RN documented in this encounter Plan of Treatment Upcoming Encounters Date Type Specialty Care Team Description 11/15/2022 Virtual Visit Pharm Haylie Gonzalez, [facility] [address] [facility] [place] [address] (Lena max) 11/15/2022 Virtual Visit IM/Peds Yane Barraza MD [address] [facility] [place] [address] (Lena max) 03/03/2023 Virtual Visit Neurology Erlinda Barber MD 420 [facility] [address] [place] [address] (Lena max) documented as of this encounter Procedures Procedure Name Priority Date/Time Associated Diagnosis Comme nts INR POINT OF CARE Routine 05/27/2013 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 documented in this encounter Results (ABNORMAL) INR point of care (05/27/2013) P athologist Signature INR Point of 3.5 (A) 0.86 - [facility] 1.14 LAB Lucero Stevenson MD LAB - BLOOD ORDERABLES Performing Organization Address City/State/ZIP Code Phon e Number [facility] documented in this encounter Visit Diagnoses Diagnosis nursing home (current) use of anticoagulant s - Primary Long-term (current) use of anticoagulant s documented in this encounter Care Teams Benefits Counselor Relationship Specialty Start Date End Date Lucero Stevenson MD PCP - General Pediatrics 10/11/11 04/22/19 documented as of this encounter
--- OUTSIDE RECORDS SUMMARY | 2022-06-15 13:23 | XMS_ITS | Encounter Summary ---
:1945 Author Organization [facility] Address [address] [place] [address] Care Team Providers Name Role Phone Lucero Stevenson MD Primary Care Provider [phone] Reason for Visit Reason Comments Anticoagulation Encounter Details Date Type Department Care Team Description 04/29/2013 [facility] Eag an Anticoagulation Visit 14[address] [place] [...] this encounter Progress Notes Qing Guy - 04/29/2013 9:17 AM CDT ANTICOAGULATION FOLLOW-UP CLINIC VISIT Patient Name: Charlette Brush Date: 04/29/2013 Contact Type: Face to Face SUBJECTIVE: Bleeding Signs/Symptoms: None Thromboembolic Signs/Symptoms: None Medication Changes: No Dietary Changes: No Bacterial/Viral Infection: No Missed Coumadin Doses: None Other Concerns: No Started glucosamine/chondroitin in February and she says it seems to be helping with joint pain. ASSESSMENT/PLAN: See: ANTICOAGULATION QIC flow sheet. INR Today: 2.5 Current Warfarin Dose: 60 mg in the past 7 days Range: Therapeutic INR Goal: 2.0-3.0 New Warfarin Dose: same, 5mg MF, 10mg TWTSS = 60 Next INR in: 4 weeks Written instructions given to patient. [facility] ANTICOAGULATION CLINIC Qing Gyu RN documented in this encounter Nursing Notes 04/29/2013 9:00 AM CDT >> QING GUY Mon Apr 29, 2013 9:30 AM Charlette Velma Brush presents in clinic [...] Gonzalez, [facility] [address] [facility] [place] [address] (Lena max) 11/15/2022 Virtual Visit [place] [address] [place] [address] [place] [address] (Lena max) 03/03/2023 Virtual Visit Neurology Erlinda Barber MD 420 [facility] [address] [place] [address] (Lena max) documented as of this encounter Procedures Procedure Name Priority Date/Time Associated Diagnosis Comme nts INR POINT OF CARE Routine 04/29/2013 watermelon inspector (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 documented in this encounter Results INR point of care (04/29/2013) P athologist Signature INR Point of 2.5 0.86 - [facility] Care 1.14 LAB Lucero Stevenson MD LAB - BLOOD ORDERABLES Performing Organization Address City/State/ZIP Code Phon e Number [facility] documented in this encounter Visit Diagnoses Diagnosis watermelon inspector (current) use of anticoagulant s - Primary Long-term (current) use of anticoagulant s documented in this encounter Care Teams Test Grader Relationship Specialty Start Date End Date Lucero Stevenson MD PCP - General Pediatrics 10/11/11 04/22/19 documented as of this encounter
--- OUTSIDE RECORDS SUMMARY | 2022-06-15 13:23 | XMS_ITS | Encounter Summary ---
:1945 Author Organization [facility] Address [address] [place] [address] Care Team Providers Name Role Phone Lucero Stevenson MD Primary Care Provider Reason for Visit Reason Comments Anticoagulation Encounter Details Date Type Department Care Team Description 06/10/2013 Allied [facility] Eag an Anticoagulation Visit 14[address] [facility] [place] [address] Social History [...] this encounter Progress Notes Qing Guy - 06/10/2013 9:14 AM CST ANTICOAGULATION FOLLOW-UP CLINIC VISIT Patient Name: Charlette Brush Date: 06/10/2013 Contact Type: Face to Face SUBJECTIVE: Bleeding Signs/Symptoms: None Thromboembolic Signs/Symptoms: None Medication Changes: No Dietary Changes: No Bacterial/Viral Infection: Head cold is getting better. Has open ulcer on her back that she is seeing derm for. Missed Coumadin Doses: None Other Concerns: No ASSESSMENT/PLAN: See: ANTICOAGULATION QIC flow sheet. INR Today: 3.2 Current Warfarin Dose: 60 mg in the past 7 days Range: Supratherapeutic INR Goal: 2.0-3.0 New Warfarin Dose: same, 5mg MF, 10mg TWTSS = 60 Next INR in: 2 weeks Written instructions given to patient. ANTICOAGULATION CLINIC Qing Guy RN LMER ASSISTANT documented in this encounter Nursing Notes 06/10/2013 8:45 AM CST >> QING GUY Mon Jun 10, 2013 9:23 AM Charlette Velma Brush presents in clinic [...] [facility] [address] [facility] [place] [address] (Lena max) 11/15/2022 Virtual Visit IM[place] [address] [place] [address] [place] [address] (Lena max) 03/03/2023 Virtual Visit Neurology Erlinda Barber MD 420 [facility] [address] [place], [place] [address] (Lena max) documented as of this encounter Procedures Procedure Name Priority Date/Time Associated Diagnosis Comme nts INR POINT OF CARE Routine 06/10/2013 terminal worker (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 documented in this encounter Results (ABNORMAL) INR point of care (06/10/2013) P athologist Signature INR Point of 3.2 (A) 0.86 - [facility] Care 1.14 LAB Lucero Stevenson MD LAB - BLOOD ORDERABLES Performing Organization Address City/State/ZIP Code Phon e Number [facility] documented in this encounter Visit Diagnoses Diagnosis terminal worker (current) use of anticoagulant s - Primary Long-term (current) use of anticoagulant s documented in this encounter Care Teams Business Analysis Specialist Relationship Specialty Start Date End Date Lucero Stevenson MD PCP - General Pediatrics 10/11/11 04/22/19 documented as of this encounter
--- OUTSIDE RECORDS SUMMARY | 2022-06-15 13:24 | XMS_ITS | Encounter Summary ---
:1945 Author Organization [facility] Address [facility] [place] [address] Care Team Providers Name Role Phone Lucero Stevenson MD Primary Care Provider [phone] Reason for Visit Reason Onset Date Comments Other 01/19/2012 Encounter Details Date Type Department Care Team Description 01/19/2012 Telephone [facility] Sleep Kavon Ramos MD Other Centers [address] [place] [address] [address] [place] [address] [phone] Social History Tobacco Use Types Packs/Day Years [...] this encounter Miscellaneous Notes Telephone Encounter - Kajal German - 01/19/2012 1:12 PM CDT 01/19/12 Rom is doing much better using the pace fx mask. Made a f/u appt with Bonifacio Jennings for 02/24/12. Asked him to please bring the machine with him to this appt. documented in this encounter Plan of Treatment Upcoming Encounters Date Type Specialty Care Team Description 11/15/2022 Virtual Visit Pharm D Haylie Cheung, [facility] [address] [facility] [place] [address] (Wo rk) 11/15/2022 Virtual Visit IM/Peds Yane Barraza MD [address] [facility] [place] [phone] (Wo rk) 03/03/2023 Virtual Visit Neurology Erlinda Barber MD 420 [facility] [address] [place], [place] [id number] (Wo rk) documented as of this encounter Visit Diagnoses Not on filedocumented in this encounter Care Teams Universal Banker Relationship Specialty Start Date End Date Lucero Stevenson MD PCP - General Pediatrics 10/11/11 04/22/19 documented as of this encounter
--- OUTSIDE RECORDS SUMMARY | 2022-06-15 13:24 | XMS_ITS | Encounter Summary ---
:1945 Author Organization [facility] Address [address] [place] [address] Care Team Providers Name Role Phone Lucero Stevenson MD Primary Care Provider [phone] Reason for Visit Reason Comments Triage pt. c/o right eye hemorrhage onset this morning approx 1 hour ago, spreading, pt. states no will n in eye, vision normal for her, last INR check was 4 weeks ago was wi thin range Urgent Care Encounter Details Date Type Department Care Team Description 04/14/2012 Office Visit [facility] ResortsAngelina D IAGNOSIS NOT YET Care DEFINED (Primary Dx) [address] [facility] [address] [facility] [place] [phone] [place] [address] (Wo rk) Social History Tobacco Use Types [...] Taken Comments Blood Pressure - - Pulse 84 04/14/2012 12:01 PM CDT Temperature 36.3 ??C (97.3 ??F) 04/14/2012 12:01 PM CDT Respiratory Rate - - Oxygen Saturation - - Inhaled Oxygen Concentration - - Weight 181.4 kg (400 lb) 04/14/2012 12:01 PM CDT Height - - Body Mass Index 62.65 02/21/2012 9:25 AM CDT documented in this encounter Progress Notes Angelina Reyna MD - 04/14/2012 12:07 PM CDT Given that pt is on Coumadin and having acute onset of bleeding in eye without trauma, she should beseen in ER for INR check, which we cannot perform in the clinic. documented in this encounter Nursing Notes 04/14/2012 11:45 AM CDT >> ERNA PAN Sat Apr 14, 2012 12:02 PM Charlette Brush; Patient presents with: Triage - pt. c/o right eye hemorrhage onset this morning approx 1 hour ago, spreading, pt. states no pain in eye, vision normal for her, last INR check was 4 weeks ago was within range Reviewed with Dr. Reyna, pt. To go to [facility] ER for eval Urgent Care Initial Pulse 84 Temp(Src) 97.3 ??F (36.3 ??C) (Oral) Wt 400 lb (181.439 kg) Estimated Body massindex is 62.65 kg/(m^2) as calculated from the following: Height as of 02/20/12: 5' 7(1.702 m). Weight as of this encounter: 400 lb(181.439 kg).. BP completed using cuff size NA (Not Taken)large enough cuff not available in clinic. Erna Pan R.N. documented in this encounter Plan of Treatment Upcoming Encounters Date Type Specialty Care Team Description 11/15/2022 Virtual Visit Pharm D Haylie Cheung, [facility] [address] [facility] [place] [address] (Wo rk) 11/15/2022 Virtual Visit IM/Peds Yane Barraza MD [address] [facility] [place] [phone] (Wo rk) 03/03/2023 Virtual Visit Neurology Erlinda Barber MD [address] [facility] 295 [place], [place] [address] (Wo rk) documented as of this encounter Visit Diagnoses Diagnosis DIAGNOSIS NOT YET DEFINED - Primary documented in this encounter Care Teams International Editorial Producer Relationship Specialty Start Date End Date Lucero Stevenson MD PCP - General Pediatrics 10/11/11 04/22/19 documented as of this encounter
--- OUTSIDE RECORDS SUMMARY | 2022-06-15 13:24 | XMS_ITS | Encounter Summary ---
:1945 Author Organization [facility] Address [facility] [place] [address] Care Team Providers Name Role Phone Lucero Knox MD Primary Care Provider Reason for Visit Reason Comments Consult ceferino Encounter Details Date Type Department Care Team Description 12/07/2011 Office Visit [facility] Kristine Ramos MD Obstructive sleep apnea [facility] [address] (adult) (pediatric) [address] [address] (Primary Dx) [place], [place] [address] [id number] [place] [phone] Social History Tobacco Use Types Packs/Day Years [...] Taken Comments Blood Pressure - - Pulse 64 12/07/2011 9:00 AM CDT Temperature 36.7 ??C (98.1 ??F) 12/07/2011 9:00 AM CDT Respiratory Rate - - Oxygen Saturation 93% 12/07/2011 9:00 AM CDT Inhaled Oxygen Concentration - - Weight 181.4 kg (400 lb) 12/07/2011 9:00 AM CDT Height 167.6 cm (5' 6) 12/07/2011 9:00 AM CDT Body Mass Index 64.56 12/07/2011 9:00 AM CDT documented in this encounter Patient Instructions Patient InstructionsKristine Ramos MD - 12/07/2011 9:43 AM CDT Images from the original note were not included. MY CONTACT NUMBERS ARE: DOCTOR : [facility] : [facility] : CPAP [address] [address] [address] [place] [address] Appointments: [phone] WHERE CAN I FIND MORE INFORMATION? [employer] Patient information on sleep disorders: http://yoursleep.aasmnet.org THINGS I SHOULD REMEMBER In most situations, sleep apnea is a lifelong disease that must be managed with daily therapy. Untreated disease, when severe, may result in an increased risk for an array of problems from heart disease to mood changes, car accidents and shorter lifespan. CPAP- WHY AND HOW? Continuous positive airway pressure, or CPAP, is the most effective treatment for obstructive sleep apnea. A decision to use CPAP is a major step forward in the pursuit of a healthier life. The successful use of CPAP will help you breathe easier, sleep better and live healthier. Using CPAP can be a positive experience if you keep these yancey points in mind: 1. Commitment CPAP is not a quick fix for your problem. It involves a long-term commitment to improve your sleep and your health. 2. Communication Stay in close communication with both your sleep doctor and your CPAP supplier. Ask lots of questions and seek help when you need it. 3. Consistency Use CPAP all night, every night and for every nap. You will receive the maximum health benefits fromCPAP when you use it every time that you sleep. This will also make it easier for your body to adjust to the treatment. 4. Correction The first machine and mask that you try may not be the best ones for you. Work with your sleep doctor and your CPAP supplier to make corrections to your equipment selection. Ask about trying a different type of machine or mask if you have ongoing problems. Make sure that your mask is a good fit and learn to use your equipment properly. 5. Challenge Tell a family member or close friend to ask you each morning if you used your CPAP the previous night. Have someone to challenge you to give it your best effort. 6. Connection Your adjustment to CPAP will be easier if you are able to connect with others who use the same treatment. Ask your sleep doctor if there is a support group in your area for people who have sleep apnea,or look for one on the Internet. 7. Comfort Increase your level of comfort by using a saline spray, decongestant or heated humidifier if CPAP irritates your nose, mouth or throat. Use your unit's ramp setting to slowly get used to the air pressure level. There may be soft pads you can buy that will fit over your mask straps. Look on www.[employer] for accessories such as these straps, a pillow contoured for side-sleeping with CPAP, longer hoses, hose covers to reduce condensation, or stands to keep the hose out of your way. 8. Cleaning Clean your mask, tubing and headgear on a regular basis. Put this time in your schedule so that you don't forget to do it. Check and replace the filters for your CPAP unit and humidifier. 9. Completion Although you are never finished with CPAP therapy, you should reward yourself by celebrating the completion of your first month of treatment. Expect this first month to be your hardest period of adjustment. It will involve some trial and error as you find the machine, mask and pressure settings that are right for you. 10. Continuation After your first month of treatment, continue to make a daily commitment to use your CPAP all night,every night and for every nap. CPAP-Tips to starting with success: Begin using your CPAP for short periods of time during the day while you watch TV or read. Use CPAP every night and for every nap. Using it less often reduces the health benefits and makes itharder for your body to get used to it. Newer CPAP models are virtually silent; however, if you find the sound of your CPAP machine to be bothersome, place the unit under your bed to dampen the sound. Make small adjustments to your mask, tubing, straps and headgear until you get the right fit. Tightening the mask may actually worsen the leak. If it leaves significant marcum on your face or irritates the bridge of your nose, it may not be the best mask for you. Speak with the person who supplied the mask and consider trying other masks. Use a saline nasal spray to ease mild nasal congestion. Neti-Pot or saline nasal rinses may also help. Nasal gel sprays can help reduce nasal dryness. Biotene mouthwash can be helpful to protect your teeth if you experience frequent dry mouth. Dry mouth may be a sign of air escaping out of your mouth or out of the mask in the case of a full face mask. Speak with your provider if you expect that is the case. Take a nasal decongestant to relieve more severe nasal or sinus congestion. Do not use Afrin (oxymetazoline) nasal spray more than 3 days in a row. Speak with your sleep doctor if your nasal congestionis chronic. Use a heated humidifier that fits your CPAP model to enhance your breathing comfort. Adjust the heatsetting up if you get a dry nose or throat, down if you get condensation in the hose or mask. Position the CPAP lower than you so that any condensation in the hose drains back into the machine rather than towards the mask. Try a system that uses nasal pillows if traditional masks give you problems. Clean your mask, tubing and headgear once a week. Make sure the equipment dries fully. Regularly check and replace the filters for your CPAP unit and humidifier. Work closely with your sleep doctor and your CPAP supplier to make sure that you have the machine, mask and air pressure setting that works best for you. BESIDES CPAP, WHAT OTHER THERAPIES ARE THERE? ?? Postioning devices if you only have the problem on your back ?? Dental devices if your condition is mild ?? Nasal valves may be effective though experience is limited ?? Tongue Retaining Device if missing teeth precludes the use of a dental device ?? Weight loss if you are overweight ?? Surgery in limited cases where devices are not acceptable or there are problems with structures in the nose and throat If treated with one of these alternative options, further evaluation is necessary to ensure that thetherapy is effective. This may require some form of testing. Healthy Lifestyle: Healthy diet, exercise and Limit alcohol: Not only will excessive alcohol increase your weight over time, but it irritates the throat tissues and make them swell, shrinking the airway and causing snoring. Drinking alcohol should be limited and stopped within 3-4 hours before going to bed. Stop smoking: (Red swollen throat, heat, nicotine), also irritates and swells the airway, among numerous other negative health consequences. Positioning Device This example shows a pillow that straps around the waist. It may be appropriate for those whose sleep study shows milder sleep apnea that occurs primarily when lying flat on one's back. Preliminary studies have shown benefit but effectiveness at home should be verified. Nasal Valves Nasal valves may not be effective if you have frequent nasal congestion or have difficulty breathingthrough your nose. They may be an option for mild apnea if other options are not well tolerated. Theefficacy of these devices is generally less than CPAP or oral appliances. Oral Appliance These are examples of two of many custom-made devices that are more likely to work in mild sleep apnea Oral appliances are dental mouth pieces that fit very much like a sports mouth guards or removable orthodontic retainers. They are used to treat snoring And obstructive sleep apnea . The device prevents the airway from collapsing by either holding the tongue or supporting the jaw in a forward position. Since oral appliances are non-invasive and easy to use, they may be considered as an early treatment option. Oral appliance therapy (OAT) involves the customization, selection, fabrication, fitting, adjustments and long-term follow-up care of specially designed oral devices, worn during sleep, which reposition the lower jaw and tongue base forward to maintain an open airway. Custom made oral appliances are proven to be more effective than cwpp-oth-mpvrqyg devices. Therefore, the oplr-wrt-rroahhy devices are recommended not to be used as a screening tool nor as a therapeutic option. Who gets a dental device? Oral appliance therapy can be used as an alternative to CPAP therapy for the treatment of mild to moderate sleep apnea and for those patients who prefer OAT to CPAP. Oral appliance therapy is a first line therapy for the treatment of primary snoring. Additionally, OAT is an option for those that cannot tolerate CPAP as therapy or who have experienced insufficient surgical results. Possible side effects? Frequent but minor side effects include: excessive salivation, dry mouth, discomfort of teeth and jaw and temporary changes in the patient???s bite. Potential complications include: jaw pain, permanent occlusal changes and TMJ symptoms. The above mentioned side effects and complications can be recognized and managed by dentists trainedin dental sleep medicine. Finding a dentist that practices dental sleep medicine Specific training is available through the [employer] for dentists interested in working in the field of sleep. To find a dentist who is educated in the field of sleep and the use of oral appliances, near you, visit the Web site of the [employer]; also see http://www.accpstorage.org/newOrganization/patients/oralAppliances.pdf To search for a dentist certified in these practices: Http://aadsm.org/FindADentist.aspx?1 Http://www.accpstorage.org/newOrganization/patients/oralAppliances.pdf Tongue Retaining Device Tongue Retaining Devices are devices that generally ???suction cup?? onto the tongue preventing it from falling back into the back of the throat during sleep. They may be an option for people missing teeth, but can be uncomfortable. This particular device can be purchased online, but similar devices made by dentists fit more precisely and may be tolerated better. In general, they are rarely effective and often not very well tolerated. Weight Loss: Some patients may experience reduction or elimination of sleep apnea with weight loss. Though there are significant health benefits from weight loss, long-term weight loss is very difficult to achieve-studies show success with dietary management in less that 10% of people. If you are interested in dietary weight loss, you should review the options discussed at the National Institutes of Health patient information site: Http:/www.health.nih.gov/topic/WeightLossDieting Bariatric programs offer counseling in all methods of weight loss: Http:/www.[facility].org/Specialties/WeightLossSurgeryandMedicalMgmt/htm Surgery: There are a number of surgeries that have been attempted to treat apnea. In general, surgical options are usually reserved for cases in which there is a physical abnormality contributing to obstructionor other treatment options are ineffective or not tolerated. Most surgical options are either unreliable or quite invasive. One of the more common procedures is: Uvulopalatopharyngoplasty: In this procedure, the uvula (the finger-like tissue that hangs in the back of the throat), part of the soft palate (the tissue that the uvula is attached to), and sometimes the tonsils or adenoids are removed. The efficacy of this surgery is around 30-50% . After surgery, complications may include: Sleepiness and sleep apnea related to post-surgery medication Swelling, infection and bleeding A sore throat and/or difficulty swallowing Drainage of secretions into the nose and a nasal quality to the voice. [place] language speech does not seem to be affected by this surgery. Narrowing of the airway in the nose and throat (hence constricting breathing) snoring and even iatrogenically caused sleep apnea. By cutting the tissues, excess scar tissue can tighten the airway andmake it even smaller than it was before UPPP. Patients who have had the uvula removed will become unable to correctly speak Vietnamese or any other language that has a uvular 'r' phoneme. Surgeries to help resolve nasal congestion may help reduce the severity of apnea slightly. Nasal congestion does not cause apnea on its own, so these surgeries are usually not performed just for CEFERINO. They may be worth considering if the nasal congestion is significantly bothersome independent of apnea. documented in this encounter Progress Notes Kristine Ramos MD - 12/14/2011 3:52 PM CDT SLEEP STUDY Marzena Brush is a 66-year-old female with prior history of obstructive sleep apnea and daytime sleepiness, treated in the past with CPAP pressure of 7-8 cm of water, who is being re-evaluated for CPAP use. She does not have daytime sleepiness, although she has significant comorbidities, including hypertension, prior pulmonary embolism in 2001 and a history of morbid obesity with a current body mass index of 64. DIAGNOSTIC: SLEEP ARCHITECTURE: Increased arousal frequency with sleep disruption and poor sleep efficiency. Total recording time 219 minutes, total sleep time 142 minutes with 71.4 arousals per hour and a sleep efficiency of 64.8% with prolonged wake after sleep onset. There was an absence of stage N3 and REM sleep on this tracing during baseline measurements. RESPIRATORY: Severe obstructive sleep apnea with episodic desaturation and low resting saturation. The patient met criteria for sleep associated hypoxemia with 29% of the time spent at or below saturations of 89%. There were 108 apneas and hypopneas for an apnea/hypopnea index of 45.6 and moderate snoring was noted. TREATMENT: SLEEP ARCHITECTURE: Substantial improvement in sleep quality with a sleep efficiency of 84.4%, a reduction in arousal frequency to 20.7 during a 305- minute recording with 257.5 minutes of sleep. There was a rebound increase in REM sleep and N3 sleep with 3.5% spent in N1, 48.7% in N2, 21% in N3 and 26.8% in stage R. It should be noted that during CPAP application and during the baseline, the patient was in the supine position throughout. CPAP was initiated at 5 cm of water and increased to a pressure of 11 cm of water with elimination of respiratory events. There was no evidence of sleep associatedhypercapnia. Awake blood gases showed a pCO2 of 39 and pO2 of 73 mmHg with a maximum overnight transcutaneous CO2 of 48 mmHg. MOVEMENT EVENTS: No periodic limb movements or abnormal sleep behaviors were noted. Bruxism was not noted. CARDIAC: No dysrhythmias were noted. The average heart rate was 68 with the lowest heart rate of 60 and a maximum heart rate of 86. ASSESSMENT: 1. Severe obstructive sleep apnea with low resting oxygen saturation, not associated with hypoventilation during sleep. 2. Severe sleep disruption, which paralleled severity of sleep apnea with remarkable improvement in sleep architecture with application of CPAP. 3. Effective CPAP pressure 11 cm of water during supine REM sleep. The patient was initiated on CPAP and will be seen in structured followup. KRISTINE RAMOS MD [place]: nr Name: MARZENA BRUSH MRN: [id number] Account: [id number] : 1945 Visit Date: 12/07/2011 Document: [id number] cc: Lucero Knox MD Kristine Ramos MD - 12/14/2011 11:10 AM CDT Telephone call 12/14/2011: Patient not available-message left with preliminary results of sleep test and reminder that follow-up is necessary within the first month. Phone contact left for questions. Kristine Ramos MD - 12/07/2011 9:03 AM CDT Images from the original note were not included. [facility] Outpatient Sleep Medicine Consultation December 07, 2011 Name: Marzena Brush Age: [age] year old Date of : 1945 Date of Consultation: December 07, 2011 Consultation is requested by: No referring provider defined for this encounter. Primary care provider: LUCERO KNOX MD Reason for Sleep Consult: Reevaluation of sleep apnea management Assessment and Plan: Obstructive sleep apnea, severity uncertain Rule out hypoventilation syndrome Hypertension History of pulmonary embolism 2002 Morbid obesity body mass index 64 Summary Recommendations: Sleep study with CPAP titration; monitoring of transcutaneous carbon dioxide level with calibration with blood gas [venous sample will be obtained given anticoagulant therapy] Summary Counseling: Comprehensive review of patient care strategies in obstructive sleep apnea with educational materials provided. Risks of untreated sleep apnea reviewed. This patient was informed that she has increased risk for hypoventilation given her body mass index and low resting oxygen saturation less than 94% Check out http://yoursleep.aasmnet.org/ History of Present Illness: Marzena Brush is a 66 year old female with previous diagnosis of sleep apnea based on snoring, daytime sleepiness/inappropriate sleep periods resolved with CPAP7-8 without recurrence of symptoms. She occasionally awakens with a dry mouth when she doesn't use her CPAP. During vacations when she has roomed with friends, no snoring is noted. She has no current daytime sleepiness[Jet Sleepiness Scale 0]. She claims to be using CPAP 8 to 9 hours a night no compliance measures do not reflect this use[timer shows approximately 10% use]- we suspect compliance measures are not accurate. PREVIOUS SLEEP STUDIES: Date: 01/2005 SLEEP-WAKE SCHEDULE: Bedtime 11 to 11:30 p.m. With awakening at 8 a.m. Usually feeling refreshed. The patient does read in bed though She recognizes a sleep latency typically on 3 to 5 minutes.awakenings are typically 3 to5 minutes to go to the bathroom. INSOMNIA: Rare prolonged latency or insomnia SLEEPINESS: ?? Jet sleepiness scale zero SLEEP COMPLAINTS: Cardio-respiratory No sleep complaints RLS Screen: none; flexes legs to avoid blood clots Limb discomfort on falling asleep: none Discomfort in legs or arms that resolves with stretching or walking: none Periodic limb movement: none Sleep Behaviors: ?? Leg movements: none ?? Bruxism: none ?? Automatic behaviors: none Other subjective complaints: ?? Anxiety or rumination ?? Leg/limb symptoms: none ?? Pain and discomfort at night: none ?? Waking up with heart either racing: none ?? GERD or aspiration: Parasomnia: NREM - denies recurrent persistent confusional arousal, night eating, sleep walking or sleep terrors REM - denies dream enactment; injuries Medications: Current outpatient prescriptions Medication Sig ??? cholecalciferol 41435 UNIT capsule Take 1 capsule by mouth once a week. ??? losartan (COZAAR) 100 MG tablet Take 1 tablet by mouth daily. ??? triamterene-hydrochlorothiazide (DYAZIDE) 37.5-25 MG per capsule Take 1 capsule by mouth every morning. ??? atenolol (TENORMIN) 25 MG tablet Take 1 tablet by mouth 2 times daily. ??? warfarin (COUMADIN) 10 MG tablet Take 1 tablet by mouth daily. or as directed by INR clinic ??? cetirizine (ZYRTEC) 10 MG tablet Take 10 mg by mouth every evening. ??? desoximetasone (TOPICORT) 0.05 % GEL Apply 1 g topically two times daily. ??? hydrocortisone 2.5 % ointment Apply topically 2 times daily. ??? cholecalciferol (VITAMIN D) 1000 UNIT tablet Take 1,000 Units by mouth daily. ??? acetaminophen (TYLENOL) 325 MG tablet Take by mouth as needed. Allergies Allergen Reactions ??? Penicillins hives ??? Cephalexin Keflex - hives ??? Lanolin skin irritation ??? Neomycin skin irritation ??? Bactroban (Mupirocin Calcium) Rash ??? Lisinopril cough Past Medical History: Does not need 02 supplement at night Past Medical History Diagnosis Date ??? benign positional vertigo 09/08/2004 s/p canolith repositioning 07/21 ??? Other lymphedema 11/04/2003 ??? BENIGN HYPERTENSION 07/30/2003 ??? PULM EMBOLISM/INFARCT NOS 11/20/2001 ??? CEFERINO (obstructive sleep apnea) nightly CPAP Past Surgical History: No h/o upper airway surgery Past Surgical History Procedure Date ??? Cholecystectomy, open 1970 ? ? Tonsillectomy & adenoidectomy Social History: History Substance Use Topics ??? Smoking status: Never Smoker ??? Smokeless tobacco: Never Used ??? Alcohol Use: No Chemical History: Nonsmoker One or two caffeinated soft drinks daily No alcoholuse Family History: Family History Problem Relation Age of Onset ??? C.A.D. Paternal Grandmother ??? Diabetes No family hx of ??? Hypertension Mother ??? Hypertension Sister ??? Stroke Maternal Grandmother age 62 ??? Breast CA Paternal Aunt x3 ??? Prostatic CA Father ??? Thyroid Mother ??? GI Brother irritable bowel ??? GI Sister ciliac disease Sleep Family Hx: RLS- unkown CEFERINO - none Review of Systems: A complete 10 point review of systems was negative other than HPI as above. This patient has had chronic obesity with body weights between 350 and 450 pounds over the past decade-she is currently midway between these weights and has gained 50 pounds since her last sleep study. Chronic lower extremity edema without ulceration Dyspnea with exertion somewhat improved with weight loss. joint pain Physical Examination: Pulse 64 Temp 98.1 ??F (36.7 ??C) Ht 1.676 m (5' 6) Wt 181.439 kg (400 lb) BMI 64.56 kg/m2 SpO2 93% Mallampati: Class IV: shard palate only Constitutional: . Awake, alert, cooperative, dressed casually, good eye contact, comfortably sittingin a chair, in no apparent distress Mood: euthymic; affect congruent with full range and intensity. Attention/Concentration: Normal Eyes: No icterus. ENT:narriw pharynx Cardiovascular: Regular S1 and S2, no gallops or murmurs. No carotid bruits Neck: supple, no thyroid enlargement. Pulmonary: Chest symmetric, lungs clear bilaterally and no crackles, wheezes or rales Extremities: Peau d'orange with chronic edema Muscle/joint: Strength and tone normal Skin: No rash or significant lesions. Gait normal. Neurologic: alert, oriented x3, no focal neurological deficit, cranial nerves grossly normal Data: All pertinent previous laboratory data reviewed No results found for this basename: PH, pharterial, PO2, [id number], sat, PCO2, GDE7itgmbvdl, HCO3,baseexcess, henny, beb Lab Results Component Value Date TSH 1.19 10/08/2007 TSH 1.34 10/03/2006 Lab Results Component Value Date GLC 95 12/03/2011 GLC 97 05/31/2011 Lab Results Component Value Date HGB 13.8 05/31/2011 HGB 13.8 03/31/2008 Lab Results Component Value Date BUN 18 12/03/2011 BUN 21 05/31/2011 CR 0.57 12/03/2011 CR 0.77 05/31/2011 Lab Results Component Value Date AST 24 12/03/2011 AST 22 05/31/2011 ALT 18 12/03/2011 ALT 25 05/31/2011 ALKPHOS 113 12/03/2011 ALKPHOS 122 05/31/2011 BILITOTAL 0.6 12/03/2011 BILITOTAL 0.6 05/31/2011 Copy to: LUCERO KNOX MD CONRAD IBER, MD 12/07/[address] [address] [address] [place] [address] Appointments: [phone] Total time spent with patient: 45 min >50% counseling HPI ROS Physical Exam documented in this encounter Plan of Treatment Upcoming Encounters Date Type Specialty Care Team Description 11/15/2022 Virtual Visit Pharm D Haylie Cheung, [facility] [address] [place] [address] (Wo rk) 11/15/2022 Virtual Visit [place] [address] [place] [address] [place] [address] (Wo rk) 03/03/2023 Virtual Visit Neurology Erlinda Barber MD [address] [facility] [address] [place] [address] (Wo rk) documented as of this encounter Visit Diagnoses Diagnosis Obstructive sleep apnea (adult) (pediatr ic) - Primary documented in this encounter Care Teams Animal Feeder Relationship Specialty Start Date End Date Lucero Knox MD PCP - General Pediatrics 10/11/11 04/22/19 documented as of this encounter
--- OUTSIDE RECORDS SUMMARY | 2022-06-15 13:24 | XMS_ITS | Encounter Summary ---
:1945 Author Organization [facility] Address [address] [place] [address] Care Team Providers Name Role Phone Lucero Stevneson MD Primary Care Provider [phone] Reason for Visit Reason Comments Eye Problem Encounter Details Date Type Department Care Team Description 04/14/2012 Emergency [facility] Lg Mishra [facility] [place] onjunctival [facility] Emergency R, hemorrhage (Primary Dx) Dept [facility] [address] [place], [place] [address] [facility] [address] [place] [address] [phone] (Wo rk) Social History Tobacco Use Types [...] Sign Reading Time Taken Comments Blood Pressure 163/75 04/14/2012 1:43 PM CDT Pulse 61 04/14/2012 1:43 PM CDT Temperature 36.3 ??C (97.4 ??F) 04/14/2012 12:30 PM CDT Respiratory Rate 16 04/14/2012 1:43 PM CDT Oxygen Saturation 95% 04/14/2012 1:43 PM CDT Inhaled Oxygen Concentration - - Weight 180.5 kg (398 lb) 04/14/2012 12:30 PM CDT Height - - Body Mass Index 62.34 02/21/2012 9:25 AM CDT documented in this encounter Discharge Instructions Discharge InstructionsLg Mishra MD - 04/14/2012 1:19 PM CDT Images from the original note were not included. Home Back SP SUBCONJUNCTIVAL HEMORRHAGE A subconjunctival hemorrhage is a result of a broken blood vessel in the white portion of the eye. It is usually painless and may be caused by coughing, sneezing or vomiting. An injury to the eye can cause this. It can also be a sign of hypertension (high blood pressure) or a bleeding disorder. Although it can look frightening, the presence of the blood is not serious. The blood will be reabsorbed without treatment within 2-3 weeks. HOME CARE: You may continue your usual activities. GET PROMPT MEDICAL ATTENTION if any of the following occur: ?? Pain in the eye ?? Change in vision ?? The blood does not disappear within three weeks ?? Increasing redness or swelling of the eye ?? Severe headache or dizziness ?? Other signs of bruising or bleeding from other parts of your body ?? [phone] [facility], [address] [place] [address], [place] [address]. All rights reserved. This information is not intended as a substitute for professional medical care. Always follow your healthcare professional's instructions. documented in this encounter Medications at Time of Discharge Medication Sig Dispensed Refills Start Date End Date cetirizine (ZYRTEC) 10 MG Take 10 mg by mouth 0 tablet 2 times daily acetaminophen (TYLENOL) Take 325 mg by 0 03/17/2019 325 MG tablet mouth daily as needed atenolol (TENORMIN) 25 MG Take 1 tablet by 180 tablet 1 11/1405/29/2012 tabletIndications: mouth 2 times Essential hypertension, daily. benign cholecalciferol (VITAMIN Take 1,000 Units by 0 11/28/2012 D) 1000 UNIT tablet mouth daily. cholecalciferol 05519 Take 1 capsule by 8 capsule 0 012 11/28/2012 UNIT capsuleIndications: mouth once a week. Vitamin D deficiencies desoximetasone (TOPICORT) Apply 1 g topically 180 g 3 0 02/21/2012 03/26/2013 0.05 % GELIndications: two times daily. Dermatitis hydrocortisone 2.5 % Daily as needed 180 g 3 02/21/2012 03/26/2013 ointmentIndications: Dermatitis losartan (COZAAR) 100 MG Take 1 tablet by 90 tablet 1 11/2805/29/2012 tabletIndications: mouth daily. Essential hypertension, benign ORDER FOR DMEIndications: Auto-CPAP: Max 11 cm H2O, Min 11cm H2O 1 Device 0 12/08/2011 08/26/2013 Obstructive sleep apnea (adult) (pediatric) Continuous, Lifetime need and heated humidity. triamterene-hydrochloroth Take 1 capsule by 90 capsule 0 05/29/2012 iazide (DYAZIDE) 37.5-25 mouth every MG per morning. capsuleIndications: Essential hypertension, benign warfarin (COUMADIN) 10 MG Take 1 tablet by 90 tablet 3 08/1708/28/2012 tabletIndications: Other mouth daily. or as pulmonary embolism and directed by INR infarction, shelter clinic (current) use of anticoagulants documented as of this encounter ED Notes Juan M Andrew RN - 04/14/2012 12:44 PM CDT Pt states she woke up after a nap and noticed redness to her R eye. Pt denies any vision changes or pain at this time. Lg Mishra MD - 04/14/2012 12:33 PM CDT Images from the original note were not included. History Chief Complaint: Eye Problem HPI Charlette Brush is a 67 year old female who presents with eye problem. The patient states she woke upat approximately 1045 this morning and noticed her left eye was red. She says the eye doesn't itch and is not hurting. She denies any history of trauma. She has not eye pain or vision changes. She otherwise feels well. 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 The patient denies nausea, vomiting, fevers, chills, visual disturbances, chest pain, shortness of breath or any other concerns. Allergies: Bactroban Keflex Lanolin Lisinopril Neomycin Penicillins Medications: Dyazide Topicort Hydrocortisone Cholecalciferol Losartan Atenolol Coumadin Zyrtec Vitamin D Acetaminophen Past Medical History: Benign positional vertigo Other lympedema Benign hypertension PE CEFERINO GERD Past Surgical History: Cholecystectomy Tonsillectomy and adenoidectomy Family History: History of C.A.D. History of hypertension. History of stroke. History of breast cancer History of prostatic cancer. History of thyroid History of IBS. Social History: The patient has never been a smoker. The patient is negative for alcohol use. Review of Systems Constitutional: Negative for fever and chills. Eyes: Positive for redness. Negative for photophobia, pain, discharge, itching and visual disturbance. Gastrointestinal: Negative for nausea and vomiting. All other systems reviewed and are negative. Physical Exam First Vitals: BP: 181/96 mmHg Heart Rate: 73 Temp: 97.4 ??F (36.3 ??C) Resp: 24 Weight: 180.532 kg (398 lb) SpO2: 95 % Physical Exam Constitutional: She appears well-developed. Pleasant, well-appearing, overweight white female HENT: Head: Normocephalic and atraumatic. Right Ear: External ear normal. Left Ear: External ear normal. Eyes: EOM and lids are normal. Pupils are equal, round, and reactive to light. Right eye exhibits nodischarge and no exudate. Left eye exhibits no discharge and no exudate. Fundoscopic exam: The right eye shows no exudate, no hemorrhage and no papilledema. No hyphema Neck: Neck supple. Cardiovascular: Normal rate, regular rhythm and normal heart sounds. Pulmonary/Chest: Effort normal and breath sounds normal. Abdominal: Soft. She exhibits no distension. There is no tenderness. Neurological: She is alert. Skin: Skin is warm and dry. Psychiatric: She has a normal mood and affect. Emergency Department Course Laboratory: CBC: WNL (WBC 5.1, HGB 13.6, PLT 233) INR: 2.38 high Emergency Department Course: 1235 The patient was examined here in the Emergency Department by myself, findings above. Blood was drawn from the patient. This was sent for laboratory testing, findings above. 1335 I discussed the plan of treatment with the patient and she is agreeable to this. I answered allquestions. Rechecked the patient, findings and plan explained to the patient. Patient discharged home, status improved, with instructions regarding supportive care, medications, and reasons to return as well as the importance of close follow-up was reviewed. Impression & Plan Medical Decision Making: This is a 67 year old female who presents to the ED with spontaneous, atraumatic right sided subconjunctival hemorrhage. There is no evidence of hyphema or vitreous hemorrhage. Since the patient is on anticoagulants with warfarin, an INR was checked in which her INR is therapeutic at 2.38 and her platelet count is within normal limits of 233. At this point the patient will be discharged home with expectant management and encouraged to follow up with her PMD. Diagnosis: 1. Right subconjunctival hemorrhage. I, [place], am serving as a scribe on 04/14/2012 at 12:34 PM to personally document services performed by Dr. Mishra based on my observations and the provider's statements to me. [place] 04/14/2012 [facility] EMERGENCY DEPARTMENT Lg Mishra MD 04/14/12 5625 Hilda Deluca RN - 04/14/2012 12:29 PM CDT Awoke this morning with redness to right eye. No change in vision. Denies injury. ABCs intact. Alert and oriented x 3. documented in this encounter Plan of Treatment Upcoming Encounters Date Type Specialty Care Team Description 11/15/2022 Virtual Visit Pharm Haylie Gonzalez, [facility] [address] [facility] [address] [place], [place] [phone] (Wo rk) 11/15/2022 Virtual Visit IM/Peds Yane Barraza MD [address] [facility] [place] [phone] (Wo rk) 03/03/2023 Virtual Visit Neurology Erlinda Barber MD [address] [facility] 295 [place], [place] [address] (Wo rk) documented as of this encounter Procedures Procedure Name Priority Date/Time Associated Diagnosis Comme nts CBC WITH PLATELETS Routine 04/14/2012 1:08 PM Res ults for this CDT procedure are i n the results section. INR STAT 04/14/2012 12:45 PM Results for this CDT procedure are i n the results section. documented in this encounter Results CBC with platelets (04/14/2012 1:08 PM CDT) athologist Signature WBC 5.1 4.0 - 11.0 [facility] 10e9/L [facility] RBC Count 4.31 3.8 - 5.2 [facility] 10e12/L [facility] Hemoglobin 13.6 11.7 - [facility] 15.7 g/dL [facility] Hematocrit 39.5 35.0 - [facility] 47.0 % [facility] MCV 92 78 - 100 [place] fl [facility] MCH 31.6 26.5 - [facility] 33.0 pg [facility] MCHC 34.4 31.5 - [facility] 36.5 g/dL [facility] RDW 12.9 10.0 - [facility] 15.0 % [facility] Platelet Count 233 150 - 450 [place] 10e9/L [facility] Specimen Anatomical Collection Method Collection Time Receive d Time (Source) Location / / Volume Laterality 04/14/2012 1:08 PM 09/29/201 2 1:10 CDT PM CDT Lg Mishra MD LAB - BLOOD ORDERABLES Performing Organization Address City/[facility] barrett Wyman [place] [address] [place], [place] [address] [facility] (ABNORMAL) INR (04/14/2012 12:45 PM CDT) P athologist Signature INR 2.38 (H) 0.86 - 1.14 [facility] Specimen Anatomical Collection Method Collection Time Receive d Time (Source) Location / / Volume Laterality Blood specimen 04/14/2012 12:45 2 (specimen) PM CDT 12:58 PM CDT Lg Mishra MD LAB - BLOOD ORDERABLES Performing Organization Address [facility] barrett Wyman [place] [address] [place], [place] [address] [facility] documented in this encounter Visit Diagnoses Diagnosis Subconjunctival hemorrhage - Primary Conjunctival hemorrhage documented in this encounter Care Teams Die Maker Relationship Specialty Start Date End Date Lucero Stevenson MD PCP - General Pediatrics 10/11/11 04/22/19 documented as of this encounter
--- OUTSIDE RECORDS SUMMARY | 2022-06-15 13:24 | XMS_ITS | Encounter Summary ---
:1945 Author Organization [facility] Address [address] [place] [address] Care Team Providers Name Role Phone Lucero Stevenson MD Primary Care Provider [phone] Reason for Visit Reason Comments Anticoagulation Encounter Details Date Type Department Care Team Description 07/23/2012 Allied Health/Nurse [facility] Eag an Anticoagulation Visit [address] [place] [...] this encounter Progress Notes Qing Guy - 07/23/2012 9:21 AM CST ANTICOAGULATION FOLLOW-UP CLINIC VISIT Patient Name: Charlette Brush Date: 07/23/2012 Contact Type: Face to Face SUBJECTIVE: Bleeding [...] weeks EA ANTICOAGULATION CLINIC Qing Guy RN SEALER documented in this encounter Nursing Notes 07/23/2012 8:45 AM CST >> QING GUY Mon Jul 23, 2012 9:19 AM Charlette Carreon Trudi presents [...] [facility] [address] [facility] [place] [address] (Lena max) 11/15/2022 Virtual Visit IM/Peds Yane Barraza MD [address] [facility] [place] [phone] (Lena max) 03/03/2023 Virtual Visit Neurology Erlinda Barber MD [address] [facility] [address] [place] [address] (Lena max) documented as of this encounter Procedures Procedure Name Priority Date/Time Associated Diagnosis Comme nts INR POINT OF CARE Routine 07/23/2012 Encounter for long-term Results for this (current) use of procedure a re in the anticoagulants results secti on. documented in this encounter Results INR point of care (07/23/2012) P athologist Signature INR Point of 2.3 0.86 - [facility] 1.14 LAB Lucero Stevenson MD LAB - BLOOD ORDERABLES Performing Organization Address City/State/ZIP Code Phon e Number [facility] documented in this encounter Visit Diagnoses Diagnosis nursing home (current) use of anticoagulant s - Primary Long-term (current) use of anticoagulant s documented in this encounter Care Teams Manager Book Relationship Specialty Start Date End Date Lucero Stevenson MD PCP - General Pediatrics 10/11/11 04/22/19 documented as of this encounter
--- OUTSIDE RECORDS SUMMARY | 2022-06-15 13:24 | XMS_ITS | Encounter Summary ---
:1945 Author Organization [facility] Address [address] [place] [address] Care Team Providers Name Role Phone Lucero Stevenson MD Primary Care Provider [phone] Reason for Visit Reason Onset Date Comments Nurse Advice Line 04/14/2012 Encounter Details Date Type Department Care Team Description 04/14/2012 Telephone [facility] Lucero Stevenson Nurse Advice Line 14[address] [facility] [place] [address] [facility] [phone] 86[address] [place], [place] [address] (Wo rk) Social History [...] encounter Miscellaneous Notes Telephone Encounter - Patience Gutierrez - 04/14/2012 10:37 PM CDT [facility] Triage Call Report Patient Name: Charlette Brush Call Date & Time: 04/14/2012 11:10:16AM Patient Phone: PCP Name: MRN: Patient Address: Patient Date of : 1945 Age: 67 yr. Patient Gender: Female Supervisor Lump Room Name: Latia Page Presenting Problem: Right eye from middle to outside is red and it looks like blood and Charlette is on blood thinners. [facility] Triage/Eye: Pain or Vision Change-No Injury and advised to be seen within 4 hours and caller agreed. Triage Note: Guideline Title: Eye: Pain or Vision Change - No Injury Recommended Disposition: Override Disposition: See Provider within 4 hours Question Response Question Note Sudden vision change associated with new difficulty No speaking/swallowing; using an arm/leg; or new one-sided weakness (face drooping) Injury to eye OR chemical splash or spray No Eye symptoms part of typical migraine headache pattern No Sudden total loss of vision in one or both eyes No Sudden onset of severe pain in or around or behind eye(s) No Sudden loss or change in vision (double or blurred vision, No increased light sensitivity) AND not previously evaluated Progressive loss of vision (hours to days) No Vision loss/change following a flash or veil (curtain) No coming down over vision Sudden blind spot in center of vision and not previously No evaluated; or sudden worsening (blurring or distortion) of central vision and being treated by a retinal specialist Sudden onset of nausea and vomiting after moving from No lighted to dark area Brief marked or complete vision loss in one or both No eyes AND now resolved New onset of pain associated with blurred vision, light No sensitivity and tearing New onset of pain with movement of the eye No New onset of pain or change in vision AND history of No connective tissue disease Sudden appearance of many floaters, halos, spots, specks No or lines Known glaucoma AND sudden change in vision No Tissue surrounding eye is red, swollen and tender Yes Physician Contacted: Physician Instructions: No Care Advice: - See provider immediately if having pain with eye movement, bulging of the eye or decreased visualacuity. - Go to the ED if has new onset of stiff neck, vomiting, drowsiness or confusion. - Apply warm, moist soaks or compresses to the affected area for 20-30 minutes 3 to 4 times per day. Avoid burning skin by using water no hotter than bath water and by not lying on the compresses. - Consider acetaminophen as directed on label or by pharmacist/provider for pain or fever PRECAUTIONS: - If there is no history of liver disease, alcoholism, or intake of three or more alcohol drinks per day - If approved by provider during or when - During , acetaminophen should not be taken more than 3 consecutive days without telling provider - Do not exceed recommended dose or frequency - CAUTIONS - Analgesic Advice: Consider aspirin, ibuprofen, naproxen or ketoprofen for pain or fever as directed on label or by pharmacist/provider. PRECAUTION: - If over 65 years of age, should not take longer than 1 week without consulting provider. EXCEPTIONS: - Should not be used if taking blood thinners. - Or if have history of sensitivity/allergy to any of these medications; or history of ulcer or kidney disease. - SYMPTOM / CONDITION MANAGEMENT MEDICAL HISTORY Conditions: Condition Note: Medication: Medication Note: Allergy: Reaction: Procedure: Procedure Note: documented in this encounter Plan of Treatment Upcoming Encounters Date Type Specialty Care Team Description 11/15/2022 Virtual Visit Pharm Haylie Gonzalez, [facility] [address] [place] [address] (Lena max) 11/15/2022 Virtual Visit [place] [address] [place] [address] [address] [place] [phone] (Lena max) 03/03/2023 Virtual Visit Neurology Erlinda Barber MD [address] [facility] [address] [place] [address] (Lena max) documented as of this encounter Visit Diagnoses Not on filedocumented in this encounter Care Teams Process Description Writer Relationship Specialty Start Date End Date Lucero Stevenson MD PCP - General Pediatrics 10/11/11 04/22/19 documented as of this encounter
--- OUTSIDE RECORDS SUMMARY | 2022-06-15 13:24 | XMS_ITS | Encounter Summary ---
:1945 Author Organization [facility] Address [address] [place] [address] Care Team Providers Name Role Phone Lucero Stevenson MD Primary Care Provider [phone] Reason for Visit Reason Comments Anticoagulation Encounter Details Date Type Department Care Team Description 04/26/2012 Allied Health/Nurse [facility] Eag an Anticoagulation Visit 1440 [address] [...] this encounter Progress Notes Qing Guy - 04/26/2012 9:07 AM CDT ANTICOAGULATION FOLLOW-UP CLINIC VISIT Patient Name: Charlette Brush Date: 04/26/2012 Contact Type: Face to Face SUBJECTIVE: Bleeding [...] RN documented in this encounter Nursing Notes 04/26/2012 8:45 AM CDT >> QING GUY [facility] Apr 26, 2012 9:26 AM Charlette Carreon Trudi presents in clinic for INR. Estimated Body mass index is 62.34 kg/(m^2) as calculated from the following: Height as of 02/21/12: 5' 7(1.702 m). Weight as of 04/14/12: 398 lb(180.532 kg). Qing Guy RN documented in this encounter Plan of Treatment Upcoming Encounters Date Type Specialty Care Team Description 11/15/2022 Virtual Visit Pharm Haylie Gonzalez, [facility] [address] [facility] [place] [id number] (Lena max) 11/15/2022 Virtual Visit [place] [address] [place] [address] [address] [place] [phone] (Lena max) 03/03/2023 Virtual Visit Neurology Erlinda Barber MD [address] [facility] [address] [place], [place] [phone] (Lena max) documented as of this encounter Procedures Procedure Name Priority Date/Time Associated Diagnosis Comme nts INR POINT OF CARE Routine 04/26/2012 Encounter for long-term Results for this (current) use of procedure a re in the anticoagulants results secti on. documented in this encounter Results INR point of care (04/26/2012) P athologist Signature INR Point of 2.6 0.86 - [facility] Care 1.14 LAB Lucero Stevenson MD LAB - BLOOD ORDERABLES Performing Organization Address City/State/ZIP Code Phon e Number [facility] documented in this encounter Visit Diagnoses Diagnosis buttermaker (current) use of anticoagulant s - Primary Long-term (current) use of anticoagulant s documented in this encounter Care Teams Private Eye Relationship Specialty Start Date End Date Lucero Stevenson MD PCP - General Pediatrics 10/11/11 04/22/19 documented as of this encounter
--- OUTSIDE RECORDS SUMMARY | 2022-06-15 13:24 | XMS_ITS | Encounter Summary ---
:1945 Author Organization [place] Address [facility] [address] Care Team Providers Name Role Phone Lucero Stevenson MD Primary Care Provider [phone] Reason for Visit Reason Comments RECHECK follow up ceferino (Routine) - Closed Specialty Diagnoses / Procedures Referred By Contact Refer red To Contact Neurological Surgery / Procedures Kristine Ramos MD Sleep Medicine RETURN [address] [place] [address] Phone: Fax: Referral ID Status Reason Start Date Expiration Date Visits Requ ested Visits Authorized [id number] Closed 02/01/2012 07/30/2012 1 1 Encounter Details Date Type Department Care Team Description 02/01/2012 Office Visit [facility] Kristine Ramos MD [facility] [place] [address] Sleep Apnea [AHI 45] [address] [address] (Primary Dx) [place], [place] [address] [address] [place] [address] Social History Tobacco Use Types [...] 05/03/2021 organizations such as faith groups, unions, [employer] or athletic groups, or school groups? How [...] Sign Reading Time Taken Comments Blood Pressure 106/61 02/01/2012 1:00 PM CDT Pulse 70 02/01/2012 1:00 PM CDT Temperature - - Respiratory Rate - - Oxygen Saturation 94% 02/01/2012 1:00 PM CDT Inhaled Oxygen Concentration - - Weight 179.6 kg (396 lb) 02/01/2012 1:00 PM CDT Height - - Body Mass Index 63.92 12/07/2011 9:00 AM CDT documented in this encounter Patient Instructions Patient InstructionsKristine Ramos MD - 02/01/2012 2:14 PM CDT Images from the original note were not included. MY CONTACT NUMBERS ARE: [phone] DOCTOR : KRISTINE RAMOS Tirado Points: 1. What is Obstructive Sleep Apnea (CEFERINO)? CEFERINO is the most common type of sleep apnea. Apnea literally means, without breath. It is characterized by repetitive pauses in breathing, despite continued effort to breathe, and is usually associated with a reduction in blood oxygen saturation. Apneas can last 10 to over 60 seconds. It is caused by narrowing or collapse of the upper airway as muscles relaxduring sleep. 2. What are the consequences of CEFERINO? Symptoms include: daytime sleepiness- possibly increasing the risk of falling asleep while driving, unrefreshing/restless sleep, snoring, insomnia, waking frequently to urinate, waking with heartburn or reflux, reduced concentration and memory, and morning headaches. Other health consequences may include development of high blood pressure. Untreated CEFERINO also can contribute to heart disease, stroke and diabetes. 3. What are the treatment options? In most situations, sleep apnea is a lifelong disease that must be managed with daily therapy. Continuous Positive Airway (CPAP) is the most reliable treatment. A mouthguard to hold your jaw forward is usually the next most reliable option. Other options include postioning devices (to keep you off your back), nasal valves, tongue retaining device, weight loss, surgery. There is more detail about these options toward the end of this document. 4. What are the most important things to remember about using CPAP? WHERE CAN I FIND MORE INFORMATION? [employer] Patient information on sleep disorders: http://yoursleep.aasmnet.org CPAP- WHY AND HOW? Continuous positive airway pressure, or CPAP, is the most effective treatment for obstructive sleep apnea. A decision to use CPAP is a major step forward in the pursuit of a healthier life. The successful use of CPAP will help you breathe easier, sleep better and live healthier. Using CPAP can be a positive experience if you keep these tirado points in mind: 1. Commitment CPAP is [...] fit over your mask straps. Look on www.CPAP.com for accessories such as these straps, a pillow contoured for side-sleeping with CPAP, longer hoses, hose covers to reduce condensation, or stands to keep the hose out of your way. CPAP Pillow Hose Stand Hose Cover Mask Strap Pads 8. Cleaning Clean your mask, tubing and [...] the mask and consider trying other masks. Insurances will allow you to try different masks during the first month of starting CPAP. Insurance also covers a new mask, hose and filter about every 6 months. Use a saline nasal spray to ease [...] Postioning devices if you only have the snoring or apnea while on your back ?? Dental devices if [...] effective. This may require some form of repeat testing. Healthy Lifestyle: Healthy diet, exercise and limit alcohol: Not only will excessive alcohol increase [...] but effectiveness at home should be verified. Oral Appliance These are examples of two of many custom-made devices that are more likely to work in mild sleep apnea Oral appliances are dental mouth pieces that fit very much like a sports mouth guards or removable orthodontic retainers. They are used to treat snoring and obstructive sleep apnea . The device prevents [...] are proven to be more effective than yzwh-gqn-lekqjcl devices. Therefore, the ckfv-mit-vaxqlei devices are recommended not to be used [...] medicine Specific training is available through the [employer] for dentists interested in working in the field of sleep. To find a dentist who is educated in the field of sleep and the use of oral appliances, near you, visit the Web site of the [employer]; also see http://www.accpstorage.org/newOrganization/patients/oralAppliances.pdf To search for a dentist certified in these practices: Http://aadsm.org/FindADentist.aspx?1 Http://www.accpstorage.org/newOrganization/patients/oralAppliances.pdf Nasal Valves Nasal valves may be an option for mild apnea if other options are not well tolerated. The efficacy of these devices is generally less than CPAP or oral appliances.They may not be effective if you have frequent nasal congestion or have difficulty breathing through your nose. Tongue Retaining Device Tongue Retaining Devices are devices that generally ???suction cup?? onto the tongue preventing it from falling back into the back of the throat during sleep. This may be an option for people missing teeth, but can be uncomfortable. This particular device can be purchased online, but similar devices made by dentists fit more precisely and may be better tolerated. In general, they are rarely effective and [...] counseling in all methods of weight loss: Http:/www.uofedicalcenter.org/Specialties/WeightLossSurgeryandMedicalMgmt/htm Surgery: There are a number of surgeries [...] and a nasal quality to the voice. Welsh language speech does not seem to be affected by this surgery. Narrowing of the airway in the nose and throat (hence constricting breathing) snoring and even iatrogenically caused sleep apnea. By cutting the tissues, excess scar tissue can tighten the airway andmake it even smaller than it was before UPPP. Patients who have had the uvula removed will become unable to correctly speak Greek or any other language that has a [...] encounter Progress Notes Kristine Ramos MD - 02/01/2012 1:59 PM CDT [facility] Outpatient Sleep Medicine Consultation February 01, 2012 Name: Charlette Brush Age: [age] year old Date of : 1945 Date of Consultation: February 01, 2012 Consultation is requested by: No referring provider defined for this encounter. Primary care provider: Lucero Stevenson Assessment and Plan: Severe obstructive sleep apnea [AHI 45]-clinical improvement on CPAP at the time of diagnosis 2004 [resolution of sleepiness] and current adequate compliance with therapy Hypertension History of pulmonary embolism 2002 Morbid obesity body mass index 64 Summary Recommendations: RTC prn Summary Counseling: Life long use of CPAP to prevent sleepiness and health risks. History of Present Illness: Charlette Brush is a 67 year old female with a history of snoring and daytime sleepiness in 2004 treated with CPAP. Subsequent studies in 2011 [below] show severe sleep apnea and hypoxemia with effective CPAP 11. She is currently asymptomatic on fixed CPAP 11 and not having sleepiness. Compliance measures below show optimal compliance. CPAP Compliance: Dates: 12/07/11-01/31/12 100 % >4hour use Average Use >7 hours Leak < 1% of time Residual AHI<1 Sleep Schedule 10-6am DIAGNOSTIC: SLEEP ARCHITECTURE: Increased arousal frequency with [...] of 45.6 and moderate snoring was noted. MOVEMENT EVENTS: No periodic limb movements or abnormal sleep behaviors were noted. Bruxism was not noted. CARDIAC: No dysrhythmias were noted. The average heart rate was 68 with the lowest heart rate of 60 and a maximum heart rate of 86. TREATMENT: SLEEP ARCHITECTURE: Substantial improvement in sleep quality with a sleep efficiency of 84.4%, a reduction in arousal frequency to 20.7 during a 305- minute recording with 257.5 minutes of sleep. There was a rebound increase in REM sleep and N3 sleep with 3.5% spent in N1, 48.7% in N2, 21% in N3 and 26.8% in stage It should be noted that during CPAP application and during the baseline, the patient was in the supine position throughout. CPAP was initiated at 5 cm of water and increased to a pressure of 11 cm of water with elimination of respiratory events and hypoxemia. There was no evidence of sleep associated h ypercapnia. Awake blood gases showed a pCO2 of 39 and pO2 of 73 mmHg with a maximum overnight transcutaneous CO2 of 48 mmHg. ASSESSMENT: 1. Severe obstructive sleep apnea with low resting oxygen saturation, not associated with hypoventilation during sleep. 2. Severe sleep disruption, which paralleled severity of sleep apnea with remarkable improvement in sleep architecture with application of CPAP. 3. Effective CPAP pressure 11 cm of water during supine REM sleep. Medications: Current Outpatient Prescriptions Medication Sig ??? cholecalciferol 50996 UNIT capsule Take 1 capsule by mouth [...] MG tablet Take by mouth as needed. ??? ORDER FOR DME Auto-CPAP: Max 11 cm H2O, Min 11cm H2O Continuous, Lifetime need and heated humidity. Allergies Allergen Reactions ??? Bactroban (Mupirocin Calcium) Rash ??? Cephalexin Keflex - hives ??? Lanolin skin irritation ??? Lisinopril cough ??? Neomycin skin irritation ??? Penicillins hives Past Medical History: Does not need 02 [...] open 1970 ? ? Tonsillectomy & adenoidectomy Physical Examination: BP 106/61 Pulse 70 Wt 179.624 kg (396 lb) SpO2 94% Copy to: Lucero Stevenson MD 02/01/2012 Total time spent with patient: 25 min >50% counseling HPI ROS Physical Exam documented in this encounter Plan of Treatment Upcoming Encounters Date Type Specialty Care Team Description 11/15/2022 Virtual Visit Pharm D Haylie Cheung, [facility] [address] [facility] [place] [address] (Wo winter) 11/15/2022 Virtual Visit IM/Peds Yane Barraza MD [address] [facility] [place] [address] (Wo winter) 03/03/2023 Virtual Visit Neurology Erlinda Babrer MD [address] [facility] [address] [place] [address] (Wo rk) documented as of this encounter Visit Diagnoses Diagnosis Severe Obstructive Sleep Apnea [AHI 45] - Primary Obstructive sleep apnea (adult) (pediatr ic) documented in this encounter Care Teams Business Librarian Relationship Specialty Start Date End Date Lucero Stevenson MD PCP - General Pediatrics 10/11/11 04/22/19 documented as of this encounter
--- OUTSIDE RECORDS SUMMARY | 2022-06-15 13:24 | XMS_ITS | Encounter Summary ---
:1945 Author Organization [place] Address [address] [place] [address] Care Team Providers Name Role Phone Lucero Stevenson MD Primary Care Provider [phone] Reason for Visit Reason Onset Date Comments Refill Request 08/28/2012 Warfarin Encounter Details Date Type Department Care Team Description 08/28/2012 Refill [facility] Lucero Stevenson Refill Request [address] [facility] MD Annetta (Warfarin) [place] [address] [facility] [phone] [address] [place], [place] [address] (Wo rk) Social History [...] this encounter Miscellaneous Notes Telephone Encounter - Austin, Prudence - 08/28/2012 4:35 PM CST Refill request from pharmacy. Last office visit: 07/23/12 Last pertinent lab: ??INR 2.3 on 07/23/12 Refilled per nurse protocol standing orders. Prasanth Austin RN R REROLL TENDER documented in this encounter Plan of Treatment Upcoming Encounters Date Type Specialty Care Team Description 11/15/2022 Virtual Visit Pharm D Haylie Cheung, [facility] [address] [facility] [address] [place], [place] [id number] (Wo rk) 11/15/2022 Virtual Visit IM/Peds Yane Barraza MD [address] [facility] [place] [phone] (Wo rk) 03/03/2023 Virtual Visit Neurology Erlinda Barber MD [address] [facility] 295 [place], [place] [address] (Wo rk) documented as of this encounter Visit Diagnoses Diagnosis Other pulmonary embolism and infarction - Primary 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 card tender (current) use of anticoagulant s Long-term (current) use of anticoagulant s documented in this encounter Care Teams Filter Operator Relationship Specialty Start Date End Date Lucero Stevenson MD PCP - General Pediatrics 10/11/11 04/22/19 documented as of this encounter
--- OUTSIDE RECORDS SUMMARY | 2022-06-15 13:24 | XMS_ITS | Encounter Summary ---
:1945 Author Organization [place] Address [address] [place] [address] Care Team Providers Name Role Phone Lucero Stevenson MD Primary Care Provider [phone] Reason for Visit Reason Onset Date Comments *_* Health Care Directive *_* 01/24/2012 Encounter Details Date Type Department Care Team Description 01/24/2012 Telephone [facility] Lucero Willard *_* Health Care [address] [place] [address] MD Annetta Directive *_* [place] [address] [facility] [phone] [address] [place], [place] [address] (Wo rk) Social History [...] encounter Miscellaneous Notes Telephone Encounter - Danni Mracus - 01/24/2012 4:34 PM CDT Patient attended group session on 08/11/11. Letter mailed to patient to assess if she is ready to complete Advance care plan. Ashli Marcus RN documented in this encounter Plan of Treatment Upcoming Encounters Date Type Specialty Care Team Description 11/15/2022 Virtual Visit Pharm D Haylie Cheung, [facility] [address] [facility] [place] [address] (Wo rk) 11/15/2022 Virtual Visit IM/Peds Yane Barraza MD [address] [facility] [place] [phone] (Wo rk) 03/03/2023 Virtual Visit Neurology Erlinda Barber MD 420 [facility] 295 [place], [place] [phone] (Wo rk) documented as of this encounter Visit Diagnoses Not on filedocumented in this encounter Care Teams Deicer Tester Relationship Specialty Start Date End Date Lucero Stevenson MD PCP - General Pediatrics 10/11/11 04/22/19 documented as of this encounter
--- OUTSIDE RECORDS SUMMARY | 2022-06-15 13:24 | XMS_ITS | Encounter Summary ---
:1945 Author Organization [place] Address [address] [place] [address]. [place] [address] Care Team Providers Name Role Phone Lucero Stevenson MD Primary Care Provider [phone] Reason for Visit Reason Onset Date Comments Refill Request 12/13/2011 Encounter Details Date Type Department Care Team Description 12/08/2011 Refill [facility] MD dylan Refill Request [address] [place], [place] [id number] [place] [address] [address] [place] [address] [phone] Social History Tobacco Use Types Packs/Day Years [...] this encounter Miscellaneous Notes Telephone Encounter - Crystal Pedroza - 12/13/2011 2:35 PM CDT Setup 12/08/11 autopap set at 11cm, comfortgel blue small nasal, Dr Ramos, medicare/[facility] compliance dates of to 03/09/12. Has f/u with Dr Ramos, 02/01/12 documented in this encounter Plan of Treatment Upcoming Encounters Date Type Specialty Care Team Description 11/15/2022 Virtual Visit Pharm D Haylie Cheung, [facility] [address] [facility] [place] [address] (Wo rk) 11/15/2022 Virtual Visit IM/Peds Yane Barraza MD [address] [facility] [place] [address] (Wo rk) 03/03/2023 Virtual Visit Neurology Erlinda Barber MD [address] [facility] 295 [place] [address] (Wo rk) documented as of this encounter Visit Diagnoses Diagnosis Obstructive sleep apnea (adult) (pediatr ic) - Primary documented in this encounter Care Teams Urologic Surgeon Relationship Specialty Start Date End Date Lucero Stevenson MD PCP - General Pediatrics 10/11/11 04/22/19 documented as of this encounter
--- OUTSIDE RECORDS SUMMARY | 2022-06-15 13:24 | XMS_ITS | Encounter Summary ---
:1945 Author Organization [place] Address [address] [place] [address] Care Team Providers Name Role Phone Lucero Stevenson MD Primary Care Provider [phone] Reason for Visit Reason Comments Anticoagulation Encounter Details Date Type Department Care Team Description 02/02/2012 [facility] Eag an Anticoagulation Visit 14[address] [facility] [place] [...] this encounter Progress Notes Qing Guy - 02/02/2012 8:38 AM CDT ANTICOAGULATION FOLLOW-UP CLINIC VISIT Patient Name: Charlette Brush Date: 02/02/2012 Contact Type: Face to Face SUBJECTIVE: Bleeding Signs/Symptoms: None Thromboembolic Signs/Symptoms: None Medication Changes: No Dietary Changes: No Bacterial/Viral Infection: No Missed Coumadin Doses: None Other Concerns: No ASSESSMENT/PLAN: See: ANTICOAGULATION QIC flow sheet. INR Today: 2.4 Current Warfarin Dose: 65 mg in the past 7 days Range: Therapeutic INR Goal: 2.0-3.0 New Warfarin Dose: same, 10mg MTWTSS, 5mg F Next INR in: 6 weeks EA ANTICOAGULATION CLINIC Qing Guy RN documented in this encounter Nursing Notes 02/02/2012 8:30 AM CDT >> QING GUY [facility] Feb 02, 2012 8:44 AM Charlette Velma Brush presents in clinic for INR. Estimated Body mass index is 63.92 kg/(m^2) as calculated from the following: Height as of 12/07/11: 5' 6(1.676 m). Weight as of 02/01/12: 396 lb(179.624 kg). Qing Guy RN documented in this encounter Plan of Treatment Upcoming Encounters Date Type Specialty Care Team Description 11/15/2022 Virtual Visit Pharm Haylie Gonzalez, [facility] [address] [facility] [address] (Lena max) 11/15/2022 Virtual Visit [place] [address] [place] [address] [place] [phone] (Lena max) 03/03/2023 Virtual Visit Neurology Erlinda Barber MD [address] [facility] 295 [place], [place] [address] (Lena max) documented as of this encounter Procedures Procedure Name Priority Date/Time Associated Diagnosis Comme nts INR POINT OF CARE Routine 02/02/2012 Encounter for long-term Results for this (current) use of procedure a re in the anticoagulants results secti on. documented in this encounter Results INR point of care (02/02/2012) P athologist Signature INR Point of 2.4 0.86 - [facility] 1.14 LAB Lucero Stevenson MD LAB - BLOOD ORDERABLES Performing Organization Address City/State/ZIP Code Phon e Number [facility] documented in this encounter Visit Diagnoses Diagnosis FDC (current) use of anticoagulant s - Primary Long-term (current) use of anticoagulant s documented in this encounter Care Teams Locker Operator Relationship Specialty Start Date End Date Lucero Stevenson MD PCP - General Pediatrics 10/11/11 04/22/19 documented as of this encounter
--- OUTSIDE RECORDS SUMMARY | 2022-06-15 13:24 | XMS_ITS | Encounter Summary ---
:1945 Author Organization [place] Address [address] [place] [address] Care Team Providers Name Role Phone Lucero Stevenson MD Primary Care Provider [phone] Reason for Visit Reason Onset Date Comments Refill Request 02/27/2012 triam/hctz Encounter Details Date Type Department Care Team Description 02/27/2012 Refill [facility] [place] Lucero Falk Refill Request 1440 [facility] MD Annetta (triam/hctz) [place] [address] [facility] [phone] [address] [place], [place] [address] (Wo rk) Social History [...] encounter Miscellaneous Notes Telephone Encounter - Susie [place] - 02/27/2012 2:37 PM CDT Date last filled: 11-29-11 Date of last OV: 12-06-11 BP: 132/66 Date of last labs pertaining to med: 12-03-11 Refilled per standing order until next BP check due. Susie [place] RN documented in this encounter Plan of Treatment Upcoming Encounters Date Type Specialty Care Team Description 11/15/2022 Virtual Visit Pharm D Haylie Cheung, [facility] [address] [facility] [address] [place], [place] [phone] (Wo rk) 11/15/2022 Virtual Visit IM/Peds Yane Barraza MD [address] [facility] [address] [place] [phone] (Wo rk) 03/03/2023 Virtual Visit Neurology Erlinda Barber MD 420 [facility] [address] [place], [place] [phone] (Wo rk) documented as of this encounter Visit Diagnoses Diagnosis Essential hypertension, benign - Primary documented in this encounter Care Teams Racing Secretary Relationship Specialty Start Date End Date Lucero Stevenson MD PCP - General Pediatrics 10/11/11 04/22/19 documented as of this encounter
--- OUTSIDE RECORDS SUMMARY | 2022-06-15 13:24 | XMS_ITS | Encounter Summary ---
:1945 Author Organization [place] Address [address] [place] [address] Care Team Providers Name Role Phone Lucero Stevenson MD Primary Care Provider [phone] Reason for Visit Reason Comments Flu Shot Encounter Details Date Type Department Care Team Description 04/26/2012 [facility] Eag an Flu Shot Visit 14[address] [facility] [place] [...] Pressure - - Pulse - - Temperature 36.7 ??C (98 ??F) 04/26/2012 8:45 AM CDT Respiratory Rate - - Oxygen Saturation - - Inhaled Oxygen Concentration - - Weight - - Height - - Body Mass Index - - documented in this encounter Progress Notes Kim Lanza - 04/26/2012 8:55 AM CDT Addended by: KIM LANZA on: 04/26/2012 08:55 AM Modules accepted: SmartSet documented in this encounter Plan of Treatment Upcoming Encounters Date Type Specialty Care Team Description 11/15/2022 Virtual Visit Pharm D Haylie Cheung, [facility] [address] [place] [address] (Wo rk) 11/15/2022 Virtual Visit IM/Peds Yane Barraza MD [address] [facility] [address] [place] [phone] (Wo rk) 03/03/2023 Virtual Visit Neurology Erlinda Barber MD 420 [facility] 295 [place] [address] (Wo rk) documented as of this encounter Visit Diagnoses Diagnosis Need for prophylactic vaccination and in oculation against influenza - Primary documented in this encounter Care Teams Body Painter Relationship Specialty Start Date End Date Lucero Stevenson MD PCP - General Pediatrics 10/11/11 04/22/19 documented as of this encounter
--- OUTSIDE RECORDS SUMMARY | 2022-06-15 13:24 | XMS_ITS | Encounter Summary ---
:1945 Author Organization [place] Address [address] [place] [address] Care Team Providers Name Role Phone Lucero Stevenson MD Primary Care Provider [phone] Reason for Visit Reason Comments Anticoagulation Encounter Details Date Type Department Care Team Description 03/15/2012 Allied Health/[facility]urse [facility] Eag an Anticoagulation Visit [address] [facility] [place] [address] Social History [...] this encounter Progress Notes Qing Guy - 03/15/2012 8:34 AM CDT ANTICOAGULATION FOLLOW-UP CLINIC VISIT Patient Name: Charlette Brush Date: 03/15/2012 Contact Type: Face to Face SUBJECTIVE: Bleeding [...] RN documented in this encounter Nursing Notes 03/15/2012 8:30 AM CDT >> QING GUY Deepali Mar 15, 2012 8:49 AM Charlette Carreon Trudi presents in clinic for INR. Estimated Body mass index is 62.74 kg/(m^2) as calculated from the following: Height as of 02/21/12: 5' 7(1.702 m). Weight as of 02/21/12: 400 lb 9.6 oz(181.711 kg). Qing Guy RN documented in this encounter Plan of Treatment Upcoming Encounters Date Type Specialty Care Team Description 11/15/2022 Virtual Visit Pharm Haylie Gonzalez, [facility] [address] [place] [address] (Lena max) 11/15/2022 Virtual Visit [place] [address] [place] [address] [place] [phone] (Lena max) 03/03/2023 Virtual Visit Neurology Erlinda Barber MD [address] [facility] [address] [place], [place] [address] (Lena max) documented as of this encounter Procedures Procedure Name Priority Date/Time Associated Diagnosis Comme nts INR POINT OF CARE Routine 03/15/2012 Encounter for long-term Results for this (current) use of procedure a re in the anticoagulants results secti on. documented in this encounter Results INR point of care (03/15/2012) P athologist Signature INR Point of 2.4 0.86 - [facility] Care 1.14 LAB Lucero Stevenson MD LAB - BLOOD ORDERABLES Performing Organization Address City/State/ZIP Code Phon e Number [facility] documented in this encounter Visit Diagnoses Diagnosis alf (current) use of anticoagulant s - Primary Long-term (current) use of anticoagulant s documented in this encounter Care Teams Shingle Trimmer Relationship Specialty Start Date End Date Lucero Stevenson MD PCP - General Pediatrics 10/11/11 04/22/19 documented as of this encounter
--- OUTSIDE RECORDS SUMMARY | 2022-06-15 13:24 | XMS_ITS | Encounter Summary ---
:1945 Author Organization [place] Address [facility] [place] [address] Care Team Providers Name Role Phone Lucero Knox MD Primary Care Provider Encounter Details Date Type Department Care Team Description 12/07/2011 Therapy Visit [facility] Ady Ramos MD Obstructive sleep apnea (adult) (pediatr ic); [facility] [place] [address] DIAGNOSIS NOT YET DEFINED [address] [address] [place] [address] Social History Tobacco Use Types [...] documented as of this encounter Progress Notes Iber, Ady, MD - 12/13/2011 9:34 AM CDT Images from the original note were not included. PHYSICIAN INTERPRETATION SLEEP STUDY Patient: Charlette Brush Date of : 1945 Study Date: 12/07/11 Referring Physician: LUCERO KNOX MD Ordering Physician: Ady Ramos Dictated. [preliminary: severe obstructive sleep apnea with effective CPAP 11 in supine REM] Polysomnogram Data: A full night polysomnogram was performed recording the standard physiologic parameters including EEG, EOG, EMG, EKG, nasal and oral airflow. Respiratory parameters of chest and abdominal movements are recorded with respiratory inductance plethysmography. Oxygen saturation was recorded by pulse oximetry. Diagnosis Code(s): 327.23 Ady Ramos MD Diplomate, [place] [employer] Internal Medicine, Sleep Medicine Crystal Neri - 12/08/2011 12:07 PM CDT Addended by: CRYSTAL NERI on: 12/08/2011 Modules accepted: Orders, SmartSet Maggie Murphy - 12/08/2011 5:58 AM CDT Split night PSG performed. documented in this encounter Plan of Treatment Upcoming Encounters Date Type Specialty Care Team Description 11/15/2022 Virtual Visit Pharm Haylie Gonzalez, [facility] [address] [facility] [place] [address] (Lena max) 11/15/2022 Virtual Visit [place] [address] [place] [address] [place] [address] (Lena max) 03/03/2023 Virtual Visit Neurology Erlinda Barber MD 420 [facility] 295 [place] [address] (Wo rk) documented as of this encounter Procedures Procedure Name Priority Date/Time Associated Comments Diagnosis HIM PROCEDURE SCAN Routine 12/08/2011 Obstructive sleep apnea (adult) (pediatric) ZZC POLYSOMNOGRAPHY, 4 Routine 12/08/2011 Obstructive sleep OR MORE apnea (adult) (pediatric) BLOOD GAS ARTERIAL Routine 12/07/2011 9:22 PM Res ults for this WITH OXYHEMOGLOBIN CDT procedure are in the results section. documented in this encounter Results sleep study - HIM Procedure Scan (12/08/2011) Ady Ramos MD PROCEDURES POLYSOMNOGRAPHY, 4 OR MORE - Shiela Mckeon Sleep (12/08/2011) Specimen (Source) Anatomical Collection Method Collection Time Re ceived Time Location / / Volume Laterality Endotracheal tube, device (physical object) Narrative This result has an attachment that is no t available. Ady Ramos MD PROCEDURES (ABNORMAL) Blood gas arterial and oxyhgb (12/07/2011 9:22 PM CDT) [facility] gist Method Time Signature pH Arterial 7.43 7.35 - OJO FELIZ 7.45 pH [facility] pCO2 Arterial 39 35 - 45 mm OJO FELIZ Hg [facility] pO2 Arterial 73 (L) 80 - 105 OJO FELIZ mm Hg [facility] Bicarbonate 26 21 - 28 OJO FELIZ Arterial mmol/L [facility] Oxyhemoglobin 93 92 - 100 % OJO FELIZ Arterial [facility] Base Excess Art 1.7 mmol/L [facility] Comment: Reference range: -9.0 to 1.8 Specimen Anatomical Collection Method Collection Time Receive d Time (Source) Location / / Volume Laterality 12/07/2011 9:22 PM 2 9:27 CDT PM CDT Ady Ramos MD LAB - BLOOD ORDERABLES Performing Organization Address City/State/ZIP Code Phon e Number [facility] [address] [place] [address] [facility] documented in this encounter Visit Diagnoses Diagnosis Obstructive sleep apnea (adult) (pediatr ic) DIAGNOSIS NOT YET DEFINED documented in this encounter Care Teams Torch Straightener Relationship Specialty Start Date End Date Lucero Knox MD PCP - General Pediatrics 10/11/11 04/22/19 documented as of this encounter
--- OUTSIDE RECORDS SUMMARY | 2022-06-15 13:24 | XMS_ITS | Encounter Summary ---
:1945 Author Organization [facility] Address [address] [place] [address] Care Team Providers Name Role Phone Lucero Stevenson MD Primary Care Provider [phone] Reason for Referral Specialty Diagnoses / Procedures Referred By Contact Refer red To Contact Lucero Stevenson MD [address] [address] Referral ID Status Reason Start Date Expiration Date Visits Requ ested Visits Authorized Scheduling Instructions ANTICOAGULATION CLINIC COLLABORATIVE PRA CTICE AGREEMENT The following represents a collaborative practice agreement among the physicians of the Clinic and staff of the Anticoagulat ion Clinic Service ([facility]) Physicians shall: 1. Refer patients requiring anticoagulat ion to a specialty service staffed by personnel of Pharmacy Services and super vised by Clinic physicians. 2. Respond to questions and referrals fr pharmacy staff regarding delinquent or difficult patients. 3. Inform the [facility] staff when a new patie nt [...] of adverse or sub-therapeutic effects including at [facility] the following: Has the patient experienced any [...] Initiate vitamin K therapy when sergio cated. MET COFFEE ATTENDANT Reason for Visit Reason Onset Date Comments Referral 07/30/2012 INR Clinic Encounter Details Date Type Department Care Team Description 07/30/2012 Telephone [facility] Lucero Willard Referral (INR Clinic) [address] [place] [address] [place] [address] [facility] [phone] [address] [place], [place] [address] (Wo rk) Social History [...] Telephone Encounter - Lucero Stevenson MD - 07/30/2012 3:59 PM GOURMET COFFEE ATTENDANT Order placed. Lucero Stevenson MD MET COFFEE ATTENDANT Telephone Encounter - Qing Guy - 07/30/2012 10:57 AM CST Reimbursement rules require all INR Clinic patients to have a yearly renewal of an INR Clinic referral order. Referral must be signed by the PCP for each patient. Nurses cannot sign these referral orders. Please route this telephone encounter back to the INR pool (p [phone]) when referral completed. Qing Guy RN MET COFFEE ATTENDANT documented in this encounter Plan of Treatment Upcoming Encounters Date Type Specialty Care Team Description 11/15/2022 Virtual Visit Pharm Haylie Gonzalez, [facility] [address] [facility] [address] [place] [phone] (Wo rk) 11/15/2022 Virtual Visit [place] [address] [place] [address] [place] [phone] (Wo rk) 03/03/2023 Virtual Visit Neurology Erlinda Barber MD [address] [facility] [address] [place], [place] [address] (Wo rk) Scheduled Referrals Name Type Priority Associated Diagnoses Order S chedule INR CLINIC REFERRAL Referral Routine Other pulmonary embol ism Ordered: 07/30/2012 and infarction Long-term (current) use of anticoagulants documented as of this encounter Visit Diagnoses Diagnosis Other pulmonary embolism and infarction - Primary Long-term (current) use of anticoagulant s Encounter for long-term (current) use of anticoagulants documented in this encounter Care Teams Medical Technologist Hematology Relationship Specialty Start Date End Date Lucero Stevenson MD PCP - General Pediatrics 10/11/11 04/22/19 documented as of this encounter
--- OUTSIDE RECORDS SUMMARY | 2022-06-15 13:24 | XMS_ITS | Encounter Summary ---
:1945 Author Organization [facility] Address [address] [place] [address] Care Team Providers Name Role Phone Lucero Stevenson MD Primary Care Provider [phone] Reason for Visit (Routine) - Closed Specialty Diagnoses / Procedures Referred By Contact Refer red To Contact Radiology Diagnoses SCREENING BILATERAL-DIGITAL Procedure Notes: Routine. Breast Center Procedures RADIOLOGY [address] [facility], [address] [place], [place] [address] Phone: Fax: Referral ID Status Reason Start Date Expiration Date Visits Requ ested Visits Authorized [id number] Closed 12/29/2011 12/28/2012 1 1 Encounter Details Date Type Department Care Team Description 01/05/2012 Hospital Encounter [facility] Lavern Stevenson Visit for screening [facility] MD [facility] mammogram Center [facility] [address] [facility], [address] [place], [place] [phone] Social History Tobacco Use Types Packs/Day Years [...] 05/03/2021 organizations such as samaritan groups, unions, fraMerus or athletic groups, or school groups? How [...] D) 1000 UNIT tablet mouth daily. cholecalciferol 41509 Take 1 capsule by 8 capsule 0 012 11/28/2012 UNIT capsuleIndications: mouth once a week. Vitamin D deficiencies desoximetasone (TOPICORT) Apply 1 g topically 180 g 3 0 07/25/2011 02/21/2012 0.05 % GELIndications: two times daily. Dermatitis hydrocortisone 2.5 % Apply topically 2 180 g 3 07/25/19 12 02/21/2012 ointmentIndications: times daily. Dermatitis losartan (COZAAR) 100 MG Take 1 tablet by 90 tablet 1 11/2805/29/2012 tabletIndications: mouth daily. Essential hypertension, benign ORDER FOR DMEIndications: Auto-CPAP: Max 11 cm H2O, Min 11cm H2O 1 Device 0 12/08/2011 08/26/2013 Obstructive sleep apnea (adult) (pediatric) Continuous, Lifetime need and heated humidity. triamterene-hydrochloroth Take 1 capsule by 90 capsule 0 02/27/2012 iazide (DYAZIDE) 37.5-25 mouth every MG per morning. capsuleIndications: Essential hypertension, benign warfarin (COUMADIN) 10 MG Take 1 tablet by 90 tablet 3 08/1708/28/2012 tabletIndications: Other mouth daily. or as pulmonary embolism and directed by INR infarction, 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 school teacher clinic (current) use of anticoagulants documented as of this encounter Plan of Treatment Upcoming Encounters Date Type Specialty Care Team Description 11/15/2022 Virtual Visit Pharm Haylie Goznalez, [facility] [address] [facility] [address] [place], [place] [phone] (Wo rk) 11/15/2022 Virtual Visit IM/Peds Yane Barraza MD [address] [facility] [facility] [address] [place], [place] [phone] (Wo rk) 03/03/2023 Virtual Visit Neurology Erlinda Barber MD 420 [facility] 295 [place], [place] [phone] (Wo rk) documented as of this encounter Procedures Procedure Name Priority Date/Time Associated Diagnosis Comme nts MA SCREENING Routine 01/05/2012 9:41 AM Visit for screening Re sults for this DIGITAL BILATERAL CDT mammogram procedure are in the results section. documented in this encounter Results Mammo Screening digital (bilat) (01/05/2012 9:41 AM CDT) Anatomical Region Laterality Modality Breast Bilateral Mammography Specimen (Source) Anatomical Collection Method Collection Time Re ceived Time Location / / Volume Laterality 01/05/2012 9:41 AM CDT Impressions 01/06/2012 8:30 AM CDT SCREENING MAMMOGRAM, BILATERAL, DIGITAL w/CAD BREAST SYMPTOMS/COMPARISON: 11/26/2010, 01/17/2008 BREAST PARENCHYMAL PATTERN: Mild/Fatty d ense FINDINGS: Negative. Screening mammogram in one year recommended. IMPRESSION: BI-RADS 1, NEGATIVE. Lucero Stevenson MD IMG MAMMOGRAPHY ORDERABLES documented in this encounter Visit Diagnoses Diagnosis Visit for screening mammogram Other screening mammogram documented in this encounter Care Teams Jewelry Racker Relationship Specialty Start Date End Date Lucero Stevenson MD PCP - General Pediatrics 10/11/11 04/22/19 documented as of this encounter
--- OUTSIDE RECORDS SUMMARY | 2022-06-15 13:24 | XMS_ITS | Encounter Summary ---
:1945 Author Organization [facility] [place] Address [address] [place] [address] Care Team Providers Name Role Phone Lucero Stevenson MD Primary Care Provider [phone] Reason for Visit Reason Comments Anticoagulation Encounter Details Date Type Department Care Team Description 06/22/2012 Allied Health/[facility]urse [facility] Eag an Anticoagulation Visit 14[address] [facility] [place] [address] Social History [...] this encounter Progress Notes Prudence Austin - 06/22/2012 9:12 AM CST ANTICOAGULATION FOLLOW-UP CLINIC VISIT Patient Name: Charlette Brush Date: 06/22/2012 Contact Type: Face to Face SUBJECTIVE: Bleeding Signs/Symptoms: None Thromboembolic Signs/Symptoms: None Medication Changes: No Dietary Changes: No Bacterial/Viral Infection: No Missed Coumadin Doses: None Other Concerns: No ASSESSMENT/PLAN: See: ANTICOAGULATION QIC flow sheet. Warfarin same, 10mg MTWTSS, 5mg F = 65mg/wk and eat more green veggies Recheck in 4 weeks INR 3.3 Goal 2.0-3.0 ANTICOAGULATION CLINIC Prudence Austin RN HUMAN RESOURCES documented in this encounter Plan of Treatment Upcoming Encounters Date Type Specialty Care Team Description 11/15/2022 Virtual Visit Pharm Haylie Gonzalez, [facility] [address] [facility] [place] [address] (Wo rk) 11/15/2022 Virtual Visit IM/Peds Yane Barraza MD [address] [facility] [place] [address] (Wo winter) 03/03/2023 Virtual Visit Neurology Erlinda Barber MD 420 [facility] 295 [place] [address] (Wo winter) documented as of this encounter Procedures Procedure Name Priority Date/Time Associated Diagnosis Comme nts INR POINT OF CARE Routine 06/22/2012 Encounter for long-term Results for this (current) use of procedure a re in the anticoagulants results secti on. documented in this encounter Results (ABNORMAL) INR point of care (06/22/2012) P athologist Signature INR Point of 3.3 (A) 0.86 - [facility] Care 1.14 LAB Lucero Stevenson MD LAB - BLOOD ORDERABLES Performing Organization Address City/State/ZIP Code Phon e Number [facility] documented in this encounter Visit Diagnoses Diagnosis intermission coordinator (current) use of anticoagulant s - Primary Long-term (current) use of anticoagulant s documented in this encounter Care Teams Ice Seller Relationship Specialty Start Date End Date uLcero Stevenson MD PCP - General Pediatrics 3/27/12 10/7/19 documented as of this encounter
--- OUTSIDE RECORDS SUMMARY | 2022-06-15 13:24 | XMS_ITS | Encounter Summary ---
:1945 Author Organization [facility] Address [address] [place] [address]. [place] [address] Care Team Providers Name Role Phone Lucero Stevenson MD Primary Care Provider [phone] Encounter Details Date Type Department Care Team Description 12/07/2011 Orders Only [facility] Eag an Vitamin D deficiencies [address] (Primary Dx) [place] [address] Social [...] Visit Haylie Wakefield, [facility] [address] [facility] [place] [address] (Wo rk) 11/15/2022 Virtual Visit IM/Peds Yane Barraza MD [address] [facility] [place] [address] (Wo rk) 03/03/2023 Virtual Visit Neurology Erlinda Barber MD 420 [facility] 295 [place] [address] (Wo rk) documented as of this encounter Visit Diagnoses Diagnosis Vitamin D deficiencies - Primary Unspecified vitamin D deficiency documented in this encounter Care Teams Deodorizer Operator Relationship Specialty Start Date End Date Lucero Stevenson MD PCP - General Pediatrics 10/11/11 04/22/19 documented as of this encounter
--- OUTSIDE RECORDS SUMMARY | 2022-06-15 13:24 | XMS_ITS | Encounter Summary ---
:1945 Author Organization [place] Address [address] [place] [address] Care Team Providers Name Role Phone Lucero Stevenson MD Primary Care Provider [phone] Reason for Visit Reason Comments Anticoagulation Encounter Details Date Type Department Care Team Description 12/26/2011 [facility] Eag an Anticoagulation Visit [address] [place] [...] this encounter Progress Notes Susie Murphy - 12/26/2011 8:44 AM CDT ANTICOAGULATION FOLLOW-UP CLINIC VISIT Patient Name: Charlette Brush Date: 12/26/2011 Contact Type: Face to Face SUBJECTIVE: Bleeding Signs/Symptoms: None Thromboembolic Signs/Symptoms: None Medication Changes: No Dietary Changes: No Bacterial/Viral Infection: No Missed Coumadin Doses: None Other Concerns: No ASSESSMENT/PLAN: See: ANTICOAGULATION QIC flow sheet. [facility] ANTICOAGULATION CLINIC Susie Murphy RN documented in this encounter Plan of Treatment Upcoming Encounters Date Type Specialty Care Team Description 11/15/2022 Virtual Visit Pharm Haylie Gonzalez, [facility] [address] [place] [address] (Wo rk) 11/15/2022 Virtual Visit IM/Peds Yane Barraza MD [address] [facility] [address] [place], [place] [phone] (Wo rk) 03/03/2023 Virtual Visit Neurology Erlinda Barber MD 420 [facility] 295 [place], [place] [phone] (Wo rk) documented as of this encounter Procedures Procedure Name Priority Date/Time Associated Diagnosis Comme nts INR POINT OF CARE Routine 12/26/2011 Encounter for long-term Results for this (current) use of procedure a re in the anticoagulants results secti on. 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
--- OUTSIDE RECORDS SUMMARY | 2022-06-15 13:24 | XMS_ITS | Encounter Summary ---
:1945 Author Organization [place] Address [address] [place] [address]. [place] [address] Care Team Providers Name Role Phone Lucero Stevenson MD Primary Care Provider [phone] Reason for Visit Reason Comments Derm Problem Patient comes to clinic toda y for atopic dermatitis. States things are the same. Encounter Details Date Type Department Care Team Description 02/21/2012 Office Visit Dermatology Chastity Montero Dermatitis (Primary 5th Floor, Clinic 5A MD Martha Dx) Roland Zavalateen 420 [facility] 98 516 [facility] 88 [address] [place], [place] [phone] [address] (Work) [phone] Social History Tobacco Use Types Packs/Day Years [...] - Inhaled Oxygen Concentration - - Weight 181.7 kg (400 lb 9.6 oz) 02/21/2012 9:25 AM CDT Height 170.2 cm (5' 7) 02/21/2012 9:25 AM CDT Body Mass Index 62.74 02/21/2012 9:25 AM CDT documented in this encounter Patient Instructions Patient InstructionsSagrario Hernandez - 02/21/2012 10:19 AM CDT General Dermatology Wound Care Instructions for Liquid Nitrogen Treatment The treatment area will appear white at first. Over the next several hours a fluid-filled blister may form. The blister can be very dark. If blister appears, it will remain blistered for about a week. Then a scab will form over the area. Leave the blistered area uncovered as long as it remains closed. If the area breaks open, you may cover it with a clean band aid. Do not pull off the skin covering the blister. If the blistered area becomes uncomfortably filled with fluid, you may release some of the fluid by puncturing the blister with a needle that has been cleansed with alcohol. If the skin covering the blister comes off, clean the area daily with soap and water. Apply a small amount of Vaseline and then cover with a clean band aid. Change the band aid twice daily until the skin is completely healed. Call us if..... 1. You have signs of infection such as thick yellow or pus-like drainage from the wound site or a fever over 100 degrees Fahrenheit. 2. You have any questions or are not sure how to take care of the wound. General Dermatology [phone] documented in this encounter Progress Notes Chastity Montero MD - 02/21/2012 10:19 AM CDT CC: Atopic dermatitis HPI: Pt is 67yo lady here for f/u atopic dermatitis. She is doing well on current regimen of TopiCort 0.5% and hydrocortisone 2.5% as needed, about once a week to the back of the lower legs. She needs refills. She is also complaining of a scaly area on her R forehead that has been present for years, scales and never bleeds. She has no new moles, no new ulcers, no recent skin infxns. No other skin complaints and is otherwise doing well. ROS: No nausea/vomiting/diarrhea, no headaches, no sob/cough PMH/FH/SH: Unchanged from prior PE: Gen: Morbidly obese, pleasant lady of Andre skin type 1 Face: R samaritan with 1cm scaly pink papule Upper extremity: Many freckles, antecubital fossae without erythema Lower extremity: Anterior shins scaly without erythema, with severe lymphedema. Speckled, dark red patches on bilateral posterior knees in skin folds. Chest, neck, abdomen, back, buttocks, hands, feet: Normal skin, no erythema, no atypical nevi A/P: Actinic keratosis: R forehead. -1 round of cryotherapy for 8 seconds -patient educated to keep vaseline on the area as it blisters and heals -call if any infection suspected Atopic dermatitis: Resolved over bilateral arms and legs. -Well managed on current regimen of hydrocortisone 2.5% ointment and topicort 0.05% gel as needed toitchy areas. -Will provide refills at this time. Stasis dermatitis: With minimal erythema and scale affecting bilateral shins. -Patient can continue elevating legs daily to decrease swelling. F/U 1 year Scribed by Radha Patrick [facility] for Dr. Montero Seen and staffed with Dr. Montero .The medical student acted as scribe for this encounter. The encounter documented above was completely performed by myself. Chastity Motnero MD documented in this encounter Plan of Treatment Upcoming Encounters Date Type Specialty Care Team Description 11/15/2022 Virtual Visit Haylie Wakefield, [facility] [address] [place] [address] (Wo rk) 11/15/2022 Virtual Visit IM/Peds Yane Barraza MD [address] [facility] [place] [address] (Wo rk) 03/03/2023 Virtual Visit Neurology Erlinda Barber MD 420 [facility] [address] [place] [address] (Wo rk) documented as of this encounter Visit Diagnoses Diagnosis Dermatitis - Primary Contact dermatitis and other eczema, due to unspecified cause documented in this encounter Care Teams Tank Farm Gauger Relationship Specialty Start Date End Date Lucero Stevenson MD PCP - General Pediatrics 10/11/11 04/22/19 documented as of this encounter
--- OUTSIDE RECORDS SUMMARY | 2022-06-15 13:24 | XMS_ITS | Encounter Summary ---
:1945 Author Organization [place] Address [address] [place] [address] Care Team Providers Name Role Phone Lucero Stevenson MD Primary Care Provider [phone] Encounter Details Date Type Department Care Team Description 02/02/2012 Orders Only [facility] Eag an Vitamin D deficiencies [address] [facility] [place] [address] Social History Tobacco [...] documented as of this encounter Progress Notes Lucero Stevenson MD - 02/05/2012 10:57 PM CDT Quick Note: Hi Charlette, Your vitamin D level is much better at 39. Please be sure you are taking 1000- 2000 IU of vitamin [id number]. We'll check this again with your next lab work. Lucero Stevenson MD documented in this encounter Plan of Treatment Upcoming Encounters Date Type Specialty Care Team Description 11/15/2022 Virtual Visit Pharm D Haylie Cheung, [facility] [address] [place] [address] (Wo rk) 11/15/2022 Virtual Visit IM/Peds Yane Barraza MD [address] [facility] [place] [address] (Wo rk) 03/03/2023 Virtual Visit Neurology Erlinda Barber MD [address] [facility] [address] [place] [address] (Wo rk) documented as of this encounter Procedures Procedure Name Priority Date/Time Associated Diagnosis Comme nts VITAMIN D Routine 02/02/2012 8:42 AM Vitamin D Results f or this DEFICIENCY CDT deficiencies procedure are i n SCREENING the results section. documented in this encounter Results Vitamin D Deficiency (02/02/2012 8:42 AM CDT) P athologist Signature 25 [place] Vit D 39 30 - 75 [facility] total ug/L [facility] Comment: Season, race, dietary intake, and treatm ent affect the concentration of 92-mifhbkk-Uuldjdf D. Values may decrea se during winter months and increase during summer months. Values less than 30 ug/L may indicate Vitamin D deficiency. Vitamin D determination is routinely pe rformed by an immunoassay specific for 25 hydroxyvitamin D3. If an individual is on vitamin D2 (ergocalciferol) supplementation, please specify 25 [place] v itamin D2 and D3 level determination by LCMSMS. For questions, please contact [facility] at [phone]. Specimen Anatomical Collection Method Collection Time Receive d Time (Source) Location / / Volume Laterality Blood specimen 02/02/2012 8:42 AM 012 8:47 (specimen) CDT AM CDT Lucero Stevenson MD LAB - BLOOD ORDERABLES Performing Organization Address City/State/ZIP Code Phon e Number [facility] [address] [place], [place] [id number] [place] [address] LABS documented in this encounter Visit Diagnoses Diagnosis Vitamin D deficiencies Unspecified vitamin D deficiency documented in this encounter Care Teams Truck Rental Clerk Relationship Specialty Start Date End Date Lucero Stevenson MD PCP - General Pediatrics 10/11/11 04/22/19 documented as of this encounter
--- OUTSIDE RECORDS SUMMARY | 2022-06-15 13:24 | XMS_ITS | Encounter Summary ---
:1945 Author Organization [place] Address [address] [place] [address] Care Team Providers Name Role Phone Joe Knox MD Primary Care Provider [phone] Reason for Visit Reason Onset Date Comments Refill Request 05/29/2012 Losartan, triam/hctz and atenolol Encounter Details Date Type Department Care Team Description 05/29/2012 Refill [facility] Eag an Joe Knox Refill Request 14[address] [facility] MD Annetta (Losartan, triam/hctz [place] [address] [facility] and atenolol) [phone] 86[address] [place], [place] [address] (Wo rk) Social History Tobacco Use [...] encounter Miscellaneous Notes Telephone Encounter - Elizabeth Marrero - 05/30/2012 9:33 AM CST Informed patient. LOCK MACHINE OPERATOR Addendum Note - Joe Knox MD - 05/29/2012 1:32 PM FLAT LOCK MACHINE OPERATOR Addended by: JOE KNOX on: 05/29/2012 01:32 PM Modules accepted: Orders LOCK MACHINE OPERATOR Telephone Encounter - Joe Knox MD - 05/29/2012 1:32 PM FLAT LOCK MACHINE OPERATOR Script sent. Joe Knox MD LOCK MACHINE OPERATOR Addendum Note - Rama Alva - 05/29/2012 1:31 PM FLAT LOCK MACHINE OPERATOR Addended by: RAMA ALVA on: 05/29/2012 01:31 PM Modules accepted: Orders, Medications LOCK MACHINE OPERATOR Telephone Encounter - Rama Alva - 05/29/2012 1:20 PM CST Med requested:Losartan,atenolol and triamterene hctz-RN protocol recommends labs every 6 months (to PCP) refilled per standing orders. Last OV : 12/06/11 Last pertinent lab: POTASSIUM 4.3 12/03/2011 CR 0.57 12/03/2011 BP Readings from Last 3 Encounters: 04/14/12 163/75 02/01/12 106/61 12/06/11 132/66 Rama Alva RN LOCK MACHINE OPERATOR documented in this encounter Plan of Treatment Upcoming Encounters Date Type Specialty Care Team Description 11/15/2022 Virtual Visit Pharm Haylie Gonzalez, [facility] [address] [place] [address] (Wo rk) 11/15/2022 Virtual Visit IM/Peds Yane Barraza MD [address] [facility] [address] [place], [place] [id number] (Wo rk) 03/03/2023 Virtual Visit Neurology Erlinda Barber MD 420 [facility] 295 [place] [address] (Wo rk) documented as of this encounter Visit Diagnoses Diagnosis Essential hypertension, benign - Primary documented in this encounter Care Teams Light Bulb Assembler Relationship Specialty Start Date End Date Joe Knox MD PCP - General Pediatrics 10/11/11 04/22/19 documented as of this encounter
--- OUTSIDE RECORDS SUMMARY | 2022-06-15 13:25 | XMS_ITS | Encounter Summary ---
:1945 Author Organization [place] Address [address] [place] [address] Care Team Providers Name Role Phone Mari Esparza MD Primary Care Provider Reason for Visit Reason Comments Hospital F/U Pt was in hospital for 2 day s with chest/abdominal pains, pt was discharged from hospital on . doing fine now. Encounter Details Date Type Department Care Team Description 06/28/2011 Office Visit [facility] Mari Esparza, GERD (gastroesophageal reflux disease); Yarelis PATEL Binge eating [address] [facility] [place] [address] [place] [phone] [facility] [place] [address] (Wo rk) Social History Tobacco Use Types Packs/Day Years Used Date Smoking Tobacco: Never Alcohol Use Standard Drinks/Week Comments [...] Sign Reading Time Taken Comments Blood Pressure 118/80 06/28/2011 9:22 AM HOG CONFINEMENT SYSTEM MANAGER Pulse 72 06/28/2011 9:22 AM HOG CONFINEMENT SYSTEM MANAGER Temperature - - Respiratory Rate - - Oxygen Saturation - - Inhaled Oxygen Concentration - - Weight 187.9 kg (414 lb 3.2 oz) 06/28/2011 9:22 AM HOG CONFINEMENT SYSTEM MANAGER Height 168.3 cm (5' 6.25) 06/28/2011 9:22 AM HOG CONFINEMENT SYSTEM MANAGER Body Mass Index 66.35 06/28/2011 9:22 AM HOG CONFINEMENT SYSTEM MANAGER documented in this encounter Progress Notes Mair Esparza MD - 06/28/2011 9:26 AM CST Chief Complaint Patient presents with ??? Hospital F/U Pt was in hospital for 2 days with chest/abdominal pains, pt was discharged from hospital on . doing fine now. Taking PPI for gerd Initial BP 118/80 Pulse 72 Ht 5' 6.25 (1.683 m) Wt 414 lb 3.2 oz (187.88 kg) BMI 66.35 kg/m2 Estimated Body mass index is 66.35 kg/(m^2) as calculated from the following: Height as of this encounter: 5' 6.25(1.683 m). Weight as of this encounter: 414 lb 3.2 oz(187.88 kg).. BP completed using cuff size: X-large Deferred ASSESSMENT / PLAN: GERD doing well, will continue for 4-6 weeks then can try to stop omeprazole and see how it goes. CONFINEMENT SYSTEM MANAGER documented in this encounter Plan of Treatment Upcoming Encounters Date Type Specialty Care Team Description 11/15/2022 Virtual Visit Pharm Haylie Gonzalez, [facility] [address] [facility] [place] [address] (Wo rk) 11/15/2022 Virtual Visit IM/Peds Yane Barraza MD [address] [facility] [place] [address] (Wo rk) 03/03/2023 Virtual Visit Neurology Erlinda Barber MD 420 [facility] 295 [place] [address] (Wo rk) documented as of this encounter Visit Diagnoses Diagnosis GERD (gastroesophageal reflux disease) Esophageal reflux Binge eating Anorexia nervosa documented in this encounter Care Teams Teacher Adventure Education Relationship Specialty Start Date End Date Mari Esparza MD PCP - General 10/05/10 10/10/11 AYLA HUTCHINSON [address] [place] [address] [id number] documented as of this encounter
--- OUTSIDE RECORDS SUMMARY | 2022-06-15 13:25 | XMS_ITS | Encounter Summary ---
:1945 Author Organization [place] Address [address] [place] [address] Care Team Providers Name Role Phone Mari Esparza MD Primary Care Provider Reason for Visit Reason Onset Date Comments Refill Request 08/29/2011 Coumadin Encounter Details Date Type Department Care Team Description 08/29/2011 [address]ill [facility] Reggie Tom, Refill Request 1440 Jonnie Oviedo MD (Coumadin) [place] [phone] [address] [facility] [phone] [facility] [place] [address] (Wo rk) Social History Tobacco Use [...] this encounter Miscellaneous Notes Telephone Encounter - Austin Prudence - 08/30/2011 9:22 AM CST Refilled per nurse protocol standing orders. Prasanth Austin RN TED INSTRUMENT INSPECTOR Telephone Encounter - Tori Mccrary - 08/29/2011 2:56 PM CST Medication requested: coumadin 10mg Last filled: 03-07-11 #90, 1 refill Last OV: 08-22-11 INR nurse Labs: INR protime: 1.5 on 08/22/11 Routing to INR clinic. Asad Mccrary RN TED INSTRUMENT INSPECTOR documented in this encounter Plan of Treatment Upcoming Encounters Date Type Specialty Care Team Description 11/15/2022 Virtual Visit Pharm D Haylie Cheung, [facility] [address] [facility] [address] [place] [phone] (Wo rk) 11/15/2022 Virtual Visit IM/Peds Yane Barraza MD [address] [facility] [place] [id number] (Wo rk) 03/03/2023 Virtual Visit Neurology Erlinda Barber MD 420 [facility] 295 [place], [place] [id number] (Wo rk) documented as of this encounter Visit Diagnoses Diagnosis Other pulmonary embolism and 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
--- OUTSIDE RECORDS SUMMARY | 2022-06-15 13:25 | XMS_ITS | Encounter Summary ---
:1945 Author Organization [place] Address [address] [place] [address] Care Team Providers Name Role Phone Lucero Stevenson MD Primary Care Provider [phone] Reason for Visit Reason Onset Date Comments Call Back 10/26/2011 regarding pt's histo ry. ABILIO Encounter Details Date Type Department Care Team Description 10/26/2011 Telephone [facility] Eag an Lucero Stevenson Call Back (regarding [address] [facility] MD Annetta pt's history. ABILIO) [place] [phone] [facility] [phone] [address] [place], [place] [address] (Wo rk) Social History [...] Notes Telephone Encounter - Elizabeth Marrero - 10/27/2011 9:45 AM CDT Jessica called back again checking on status of records from [facility]. Received records and will fax them to [facility] for patient's appointment on Monday 10/30. Telephone Encounter - Elizabeth Marrero - 10/26/2011 3:47 PM CDT Jessica called back requesting to speak with Genevieve about records for patient. She said that she is looking for records from [facility] dating back to 10 years ago. She was not able to find anything in [place] and wanted to see if we had anything? She will call us back tomorrow afternoon to check on status. Telephone Encounter - Danni Marcus - 10/26/2011 2:45 PM CDT LMTCB. Ashli Marcus RN Telephone Encounter - Gaye Ronquillo - 10/26/2011 12:22 PM CDT Jessica from [facility] called needing to speak with somebody in [facility] team regarding patient. She has a history of pulmonary embolism. Please call her back at [phone]. Thank you. documented in this encounter Plan of Treatment Upcoming Encounters Date Type Specialty Care Team Description 11/15/2022 Virtual Visit Haylie Wakefield, [facility] [address] [facility] [place] [address] (Wo rk) 11/15/2022 Virtual Visit IM/PedYane Muir MD [address] [facility] [place] [address] (Wo rk) 03/03/2023 Virtual Visit Neurology Erlinda Barber MD 420 [facility] 295 [place] [address] (Wo rk) documented as of this encounter Visit Diagnoses Not on filedocumented in this encounter Care Teams Counter Pocket Sewer Relationship Specialty Start Date End Date Lucero Stevenson MD PCP - General Pediatrics 10/11/11 04/22/19 documented as of this encounter
--- OUTSIDE RECORDS SUMMARY | 2022-06-15 13:25 | XMS_ITS | Encounter Summary ---
:1945 Author Organization [facility] Address [address] [place] [id number] Care Team Providers Name Role Phone Mari Esparza MD Primary Care Provider Reason for Visit Reason Comments Shortness of Breath worse with activity, having difficulty speaking in full sentences from walking into the ER. Wo rse yesterday and into today. Chest Pain pain midsternal and across s houlder blades. Auth/Cert - Closed Specialty Diagnoses / Procedures Referred By Contact Refer red To Contact Diagnoses Epigastric pain Chest pain Dyspnea on exertion 3 [facility] [address] [place], [place] [phone] Phone: Fax: Referral ID Status Reason Start Date Expiration Date Visits Requ ested Visits Authorized Closed 06/01/2011 11/28/2011 Encounter Details Date Type Department Care Team Description 05/31/2011 - [facility] Bernabe Suresh MD [facility] [address] [place], [place] [id number] Chest pain; 06/02/2011 [facility] 3 Medical Erinn Rao MD [address] [place] [address] Epigastric pain; Surgical Dyspnea on exertion; [address] Essential hypertension, josy gn; [place], [place] Contact derma titis and other eczema, due to unspecified cause; [id number] Other pulmonary embolism and infarction; [phone] Encounter for l ozzie-term (current) use of anticoagulants Social History Tobacco Use Types Packs/Day Years [...] Sign Reading Time Taken Comments Blood Pressure 145/79 06/02/2011 9:40 AM TUBE FORMER OPERATOR Pulse 66 06/02/2011 9:40 AM TUBE FORMER OPERATOR Temperature 36.1 ??C (97 ??F) 06/02/2011 7:26 AM TUBE FORMER OPERATOR Respiratory Rate 20 06/02/2011 7:26 AM TUBE FORMER OPERATOR Oxygen Saturation 97% 06/02/2011 7:26 AM TUBE FORMER OPERATOR Inhaled Oxygen Concentration - - Weight 179.1 kg (394 lb 12.8 oz) 06/02/2011 6:02 AM TUBE FORMER OPERATOR Height 170.2 cm (5' 7) 05/31/2011 7:57 PM TUBE FORMER OPERATOR Body Mass Index 61.83 05/31/2011 7:57 PM TUBE FORMER OPERATOR documented in this encounter Discharge Summaries Bernabe Gan, - 06/02/2011 1:57 PM CST Discharge Summary Marzena Evans Date of : 1945 Age: [age] year old Date of Admission: 05/31/2011 Date of Discharge: 06/02/2011 Admitting Physician: Erinn Rao MD Discharge Physician: Bernabe Gan Discharging Service: Hospitalist Primary Provider: Mari Esparza MD, , MD Discharge Diagnosis: 1. Chest pain, ruled out for ACS with no inducible ischemia on Lexiscan stress test. Likely 2/2 dyspepsia from NSAIDs. 2. HTN. 3. Hx of PE, currently on coumadin. 4. CEFERINO on CPAP 5. Atopic dermatitis Discharge Disposition: Discharged to home Allergies: Allergies Allergen Reactions ??? Penicillins hives ??? Cephalexin Keflex - hives ??? Lanolin skin irritation ??? Neomycin skin irritation ??? Bactroban (Mupirocin Calcium) Rash Discharge Medications: Discontinued meds Medication Sig Dispense Refill ??? DISCONTD: ibuprofen (ADVIL,MOTRIN) 200 MG tablet Take 200 mg by mouth as needed. Unchanged MEDICAL BILLER CODER meds that are or will be resumed Medication Sig Dispense Refill ??? cholecalciferol (VITAMIN D) 1000 UNIT tablet Take 1,000 Units by mouth daily. ??? acetaminophen (TYLENOL) 325 MG tablet Take by mouth as needed. ??? warfarin (COUMADIN) 10 MG tablet Take 1 tablet by mouth daily. or as directed by INR clinic 90 tablet 1 ??? cetirizine (ZYRTEC) 5 MG tablet Take 1 tablet by mouth 2 times daily. 180 tablet 1 ??? losartan (COZAAR) 100 MG tablet Take 1 tablet by mouth daily. 90 tablet 3 ??? triamterene-hydrochlorothiazide (DYAZIDE) 37.5-25 MG per capsule Take 1 capsule by mouth every morning. 90 capsule 3 ??? atenolol (TENORMIN) 25 MG tablet Take 1 tablet by mouth 2 times daily. 180 tablet 3 ??? HYDROCORTISONE (TOPICAL) 2.5 % EX OINT apply as needed 28.35GM ??? TOPICORT 0.05 % EX GEL apply 3 times daily as needed below knees 60 GM New prescriptions Medication Sig Dispense Refill ??? omeprazole (PRILOSEC) 20 MG capsule Take 1 capsule by mouth daily. 90 capsule 3 Condition on Discharge: Discharge condition: Stable Discharge vitals: Blood pressure 145/79, pulse 66, temperature 97 ??F (36.1 ??C), temperature sourceOral, resp. rate 20, height 1.702 m (5' 7), weight 179.08 kg (394 lb 12.8 oz), SpO2 97.00%. Code status on discharge: Full Code History of Illness: See detailed admission note for full details. Procedures / Imaging: EKG CXR Lexiscan stress test Consultations: No consultations were requested during this admission Significant Results: All negative results. Pending Results: None Discharge Instructions and Follow-Up: Discharge diet: Cardiac Discharge activity: Activity as tolerated Discharge follow-up: Follow up with primary care provider in 7 days Outpatient therapy: None Home Care agency: None Other instructions: None Hospital Course: 66 y/o with h/o HTN, CEFERINO, PE presented for evaluation of atypical CP. Pt states that she recently was accidentally taking NSAIDs as she confused her shopping back with that of her sister who had purchased APAP. EKG showed no e/o ischemia and pt r/o with serial trops. Had resolution of CP with GI cocktail and was started on PO PPI. Had no further CP during admission. Lexiscan stress test performed d/ther multiple risk factors and this was negative. She should d/c NSAIDs and will be provided with Prilosec at d/c. Follow up with PCP in 1-2 weeks. Total time spent in face to face contact with the patient and coordinating discharge was: >30 Minutes Bernabe Gan June 02, 2011 FORMER OPERATOR documented in this encounter Medications at Time of Discharge Medication Sig Dispensed Refills Start Date End Date acetaminophen (TYLENOL) Take 325 mg by 0 03/17/2019 325 MG tablet mouth daily as needed atenolol (TENORMIN) 25 MG Take 1 tablet by 180 tablet 3 11/1411/29/2011 tabletIndications: mouth 2 times Essential hypertension, daily. benign cetirizine (ZYRTEC) 5 MG Take 1 tablet by 180 tablet 1 03/0707/25/2011 tabletIndications: Contact mouth 2 times dermatitis and other daily. eczema, due to unspecified cause cholecalciferol (VITAMIN Take 1,000 Units 0 11/28/2012 D) 1000 UNIT tablet by mouth daily. HYDROCORTISONE (TOPICAL) apply as needed 28.35GM 0 10/06/2011 2.5 % EX OINT losartan (COZAAR) 100 MG Take 1 tablet by 90 tablet 3 12/0211/29/2011 tabletIndications: mouth daily. Essential hypertension, benign omeprazole (PRILOSEC) 20 Take 1 capsule by 90 capsule 3 05/1712/07/2011 MG capsuleIndications: mouth daily. Epigastric pain TOPICORT 0.05 % EX GEL apply 3 times 60 GM 0 07/25/2011 daily as needed below knees triamterene-hydrochlorothi Take 1 capsule by 90 capsule 3 11/29/2011 azide (DYAZIDE) 37.5-25 MG mouth every per capsuleIndications: morning. Essential hypertension, benign warfarin (COUMADIN) 10 MG Take 1 tablet by 90 tablet 1 02/1508/29/2011 tabletIndications: Other mouth daily. or as pulmonary embolism and directed by INR infarction, [facility] living [facility] (current) use of anticoagulants documented as of this encounter Progress Notes Bailee Stephens RN - 06/01/2011 10:26 AM CST HERE FOR NUCLEAR LEXISCAN STRESS TEST IV: LT HAND PATENT LAST CAFFIENE: > 12 HOURS ALLERGIES: NOTED LUNGS: CTA BILATERALY TOLERATED TEST WITHOUT INCIDENT FORMER OPERATOR Bernabe Gan DO - 06/01/2011 8:31 AM CST [facility] Hospitalist Progress Note Assessment and Plan: 66 y/o WF with h/o HTN, CEFERINO, PE presents with CP. 1. Atypical CP: EKG reviewed and no indication of ischemia. Trops neg x3. Relief after GI cocktail would suggest possible GI etiology. Agree with Dr Rao pt has risk factors for CAD so plan on which will likely take 2 days given obesity. Currently CP free. Continue protonix. 2. HTN: BP well controlled. Continue losartan, triamterene/HCTZ, atenolol. 3. Hx of PE: Pt on coumadin. INR 1.9. Pharmacy to dose. Even if CP is from PE, mgmt would not changeso no role in CT chest. Discussed with pt who agrees. 4. CEFERINO: CPAP QHS. 5. FULL CODE. Interval History: Pt doing well. No CP/SOB, N/V/D/C, F/C/NS. No other complaints. Pt had relief of CP after GI cocktail. Medications: I have reviewed this patient's current medications Physical Exam: Blood pressure 112/60, pulse 66, temperature 97.6 ??F (36.4 ??C), temperature source Oral, resp. rate 18, height 1.702 m (5' 7), weight 179.4 kg (395 lb 8.1 oz), SpO2 94.00%. No intake or output data in the 24 hours ending 06/01/11 0831 GEN: NAD AAOx3. Obese. HEENT: NCAT EOMI XAVI. CV: RRR w/o M/R/G. PULM: CTA bilaterally. ABD: S/NT/ND/BS present. No HSM. EXT: No C/C/E. NEURO: CN 2-12 grossly intact, no focal neurological deficits. SKIN: No rash, ulcer, jaundice. Data: Recent labs, imaging, and other studies were reviewed. Lab 05/31/11 1640 WBC 7.0 HGB 13.8 HCT 40.5 MCV 91 PLT 257 NA 136 05/31/2011 NA 143 11/29/2010 NA 141 12/08/2009 CHLORIDE 102 05/31/2011 CHLORIDE 106 11/29/2010 CHLORIDE 104 12/08/2009 BUN 21 05/31/2011 BUN 18 11/29/2010 BUN 19 12/08/2009 POTASSIUM 4.1 05/31/2011 POTASSIUM 3.6 11/29/2010 POTASSIUM 4.0 12/08/2009 CO2 28 05/31/2011 CO2 27 11/29/2010 CO2 27 12/08/2009 CR 0.77 05/31/2011 CR 0.95 11/29/2010 CR 0.73 12/08/2009 Lab 06/01/11 0210 05/31/11 2205 05/31/11 1640 TROPONIN -- -- -- TROPR -- -- -- TROPONINIES <0.012 <0.012 <0.012 Bernabe Gan June 01, 2011 FORMER OPERATOR documented in this encounter H&P Notes Erinn Rao MD - 05/31/2011 9:17 PM CST CHIEF COMPLAINT: Chest pain. HISTORY OF PRESENT ILLNESS: Ms. Evans a 66-year-old female who comes in with intermittent chest pain over the past 10 days. She states that it comes in an unpredictable fashion. It is achy in nature will radiate to her back and then up into her shoulders and then it will resolve over the course of 1-2 hours. It is not associated with any shortness of breath, nausea, vomiting or diaphoresis. There isno pleuritic quality to it. It just can come on when she is walking around or when she is just sitting, perhaps in a car or sitting at her desk. She has had no cough, fever, chills or sweats. She does have a history of a PE, and she is on chronic anticoagulation therapy and most recently, it was tested earlier today, was 2.1, and on recheck here in the emergency room, it was 1.9. She has no history of coronary artery disease. She does have obesity, hypertension and apparently a lipid metabolism disorder that is not clarified further in her chart. In any case, it sounds as if it improved after a GI c ocktail downstairs, so it certainly has some features consistent with more of a gastrointestinal source. She states it does not change based any positional component. Currently, she states that she is pain-free. She feels well and would like to eat. Interestingly, she must have had some ibuprofen intermingled with her Tylenol, and so she has been periodically takingsome ibuprofen, which she has of course been told not to take given chronic anticoagulation status, and certainly that could be a risk factor for gastritis. PAST MEDICAL HISTORY: 1. Stasis dermatitis. 2. Morbid obesity. 3. Chronic edema. 4. History of a pulmonary embolism greater than 10 years ago. She is on chronic anticoagulation for that, she tells me that it was in the setting of being on hormone replacement therapy, but she does not recall any other details. 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 6. Obstructive sleep apnea, on CPAP. 7. Hypertension. 8. Impaired fasting glucose. PAST SURGICAL HISTORY: 1. She is status post cholecystectomy in 1969. 2. She had a tonsillectomy and adenoidectomy at the age of 29 in 1973. MEDICATIONS: 1. Losartan 100 mg p.o. daily. 2. Triamterene/hydrochlorothiazide 37.5/25 p.o. daily. 3. Atenolol 25 mg p.o. b.i.d. 4. Warfarin 5 mg q. Monday and Monday, 10 mg the rest of the week. 5. Zyrtec 5 mg p.o. b.i.d. 6. Vitamin D 1000 international units. 7. Ibuprofen 200 mg or acetaminophen 500 mg p.r.n. ALLERGIES: Penicillin, Keflex, Bactroban and Lanolin. She apparently has multiple other topical allergies. SOCIAL HISTORY: She lives in a town home alone. She is a never smoker and nondrinker. 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 REVIEW OF SYSTEMS: A 10-point review of systems was otherwise complete and negative except as listedin HPI. PHYSICAL EXAMINATION: VITAL SIGNS: Blood pressures are in the 120-140s/70s-90s. Heart rate is in the 60s. Respiratory rateis 18-24. Sats are 96-100% on room air. She is afebrile at 95.4 degrees. GENERAL: This is a very pleasant female. She is in no acute distress during my interview and examination. She looks her stated age. HEENT: Normocephalic, atraumatic. Sclerae are clear. Pupils are equal, round and reactive to light. LUNGS: Sounds are clear to auscultation. She exhibits normal respiratory effort. HEART: Regular rate and rhythm, and I do not appreciate any murmurs, rubs or gallops. ABDOMEN: Soft, nontender and nondistended. EXTREMITIES: Lower extremities look like day showed just some chronic mild lower extremity edema that is not particularly pitting in nature. SKIN: Otherwise warm and dry. She clearly has a rash on her right knee, which is stable. NEUROLOGIC: She is alert and appropriate. 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 Strength and sensation are intact in bilateral upper and lower extremities. LABORATORY DATA: Comprehensive metabolic panel is within normal limits. BNP is 176, which is normal.Lipase and amylase are normal. Troponin is less than 0.012. CBC is normal. Chest x-ray looks clear. EKG shows a normal sinus rhythm without acute ST-T changes. ASSESSMENT AND PLAN: Ms. Evans is a 66-year-old female who presents to this facility with a 10-day history of episodic chest pain. 1. Chest pain. It sounds atypical to me, but she does have some risk factors, and it seems reasonable to bring her in to rule her out. She is unable to participate in any type of treadmill stress testing, and that is why she was brought into our inpatient facility. Chest pain sounds more consistent with GI to me. It has no features suggestive of pulmonary embolus, and she states to me that this does not feel like her previous pulmonary embolus. She does have some risk factors for coronary artery disease. She also reports kind of a gradual decrease in exercise tolerance due to fatigue, shortness of breath and knee pain. For those reasons, I think it is reasonable to rule her out with serial troponins and set her up for Lexiscan. I am going to empirically treat her with milk of magnesia on a p.r.n.basis as well as put her on a PPI. I asked that she stay on this PPI for approximately 1 month. She did receive an aspirin in the emergency room, and I will go ahead and continue that while in house. Iwill check a fasting lipid panel on her as well. 2. Obstructive sleep apnea. Continue continuous positive airway pressure therapy at home. 3. Hypertension. Continue her current medications. 4. History of pulmonary embolism. Continue warfarin therapy. From a prophylactic standpoint, she is anticoagulated on warfarin. 5. Hypertension. Get her back on her home medications. It is borderline right now. She may need moreaggressive management, but it also might be elevated just because of the stress of being [facility]. CODE STATUS: Full. DISPOSITION: Admission, observation, although she will probably require a 2-day Lexiscan test. ERINN RAO MD MT: [id number] Name: MARZENA EVANS MRN: [id number] Account: [id number] : 1945 Admitted: [id number] Document: [id number] cc: Mari Esparza MD FORMER OPERATOR documented in this encounter ED Notes Tiffanie Abernathy RN - 05/31/2011 6:49 PM CST MD in to discuss admission with patient. Patient to be admitted to Tele-- unable to complete stress test secondary to obesity and lymphedema. Patient had a nuc. Med stress test 10 years ago. Sister at bedside FORMER OPERATOR Tiffanie Abernathy RN - 05/31/2011 6:23 PM CST Patient to x-ray FORMER OPERATOR Jose Juan Krishnamurthy RN ([place]ruce) - 05/31/2011 4:28 PM CST Attempted iv x 3 w success, unable to draw blood, lab collect , oven loader notified FORMER OPERATOR Bernabe Suresh MD - 05/31/2011 3:47 PM CST History Chief Complaint: Shortness of Breath and Chest Pain The history is provided by the patient. Marzena Evans is a 66 year old female who presents with shortness of breath and chest pain. She rates her pain as a 5/10 in severity. The patient states that she is having some chest pain substernallyand radiates into her back between her shoulderblades that she noticed about five days ago. The patient states her pain is intermittent and not exacerbated with movement. She also notes shortness of breath that is new onset for her today, this is worse with walking. She also has some chronic lower extremity edema which she notes is actually better than it usually is. The patient denies any recent illnesses or cold symptoms such as fever, cough, chills, or nausea and vomiting. The patient denies any urinary or bowel symptoms. The patient denies any focal weakness or numbness. The patient denies a history of hyperlipidemia, or diabetes. The patient denies a history of tobacco use. The patient deniesany family history of heart disease. The patient denies any further complaints. Allergies: Penicillins hives Cephalexin Keflex - hives Lanolin skin irritation Neomycin skin irritation Bactroban (Mupirocin Calcium) Rash Medications: Coumadin Zyrtec Cozaar Dyazide Atenolol Hydrocortisone Topicort gel Acetaminophen Past Medical History: Lymphedema Benign Hypertension Pulmonary embolism Sleep apnea Obesity Plantar fibromatosis Dermatitis Impaired fasting glucose Hyperlipidemia Past Surgical History: Cholecystectomy Tonsillectomy and adenoidectomy Family / Social History: Problem Relation Age of Onset ??? C.A.D. Paternal Grandmother ??? Diabetes No family hx of ??? Hypertension Mother ??? Hypertension Sister ??? Stroke Maternal Grandmother age 62 ??? Breast CA Paternal Aunt x3 ??? Prostatic CA Father ??? Thyroid Mother ??? GI Brother irritable bowel ??? GI Sister ciliac disease Social History: Smoking status: Negative Smokeless tobacco: Negative Alcohol Use: Negative Review of Systems Constitutional: Negative for fever and chills. HENT: Negative for facial swelling. Respiratory: Positive for chest tightness and shortness of breath. Cardiovascular: Positive for chest pain. Negative for leg swelling. Gastrointestinal: Negative for abdominal pain. Skin: Negative for rash. Neurological: Negative for weakness. All other systems reviewed and are negative. Physical Exam First Vitals: BP: 145/95 mmHg Heart Rate: 72 Temp: 97.8 ??F (36.6 ??C) Resp: 24 SpO2: 100 % Physical Exam Constitutional: She is cooperative. Appropriate interaction. HENT: Head: Atraumatic. Mouth/Throat: Oropharynx is clear and moist. Eyes: Conjunctivae and EOM are normal. Pupils are equal, round, and reactive to light. Neck: Normal range of motion. Cardiovascular: Normal rate, regular rhythm, normal heart sounds and normal pulses. No murmur heard. Pulmonary/Chest: Effort normal and breath sounds normal. No respiratory distress. She has no wheezes. She has no rales. Abdominal: Soft. Normal appearance and bowel sounds are normal. She exhibits no distension. She has no rebound. Epigastric abdominal pain. Musculoskeletal: Normal range of motion. No Deformity. LE edema Neurological: She is alert. She has normal strength. No cranial nerve deficit or sensory deficit. GCS eye subscore is 4. GCS verbal subscore is 5. GCS motor subscore is 6. Oriented to person, place, time and situation. Gait normal. Skin: Skin is warm and dry. No rash noted. She is not diaphoretic. Chronic edema in lower extremities. Psychiatric: She has a normal mood and affect. Emergency Department Course ECG: Rate 72 bpm. AL interval 150ms. QRS duration 86ms. QT/QTc 414/453ms. P-R-T axes 44/29/19. Sinus rhythm with premature atrial complexes with aberrant conduction. No ST elevation. Nonspecific ST Abnormality. Imaging: Chest x ray: No acute pathology. Reading per Radiology. Laboratory: Troponin: <0.012 N-Terminal Pro BNP: 176 CMP: all WNL (Creatinine: 0.77) Lipase: 148 INR: 1.90 High Amylase: 66 CBC: % Lymph: 18.3 Low (o/w WNL WBC: 7.0, Hgb: 13.8, Platelet count: 257) Interventions: aspirin 162 mg Oral Once lidocaine viscous 2% 15mL and maalox/mylanta w/ simethicone 15mL (GI COCKTAIL) 30 mL Oral Once Emergency Department Course: The patient was seen and examined. Plan of care discussed. Good relief of chest pain and epigastric pain with GI cocktail. X-ray chest 2 views obtained. Results discussed and above. Rechecked the patient, findings and plan explained to the patient. Patient discharged home, status improved, with instructions regarding supportive care, medications, and reasons to return as well as the importance of close follow-up was reviewed. Impression & Plan Medical Decision Making: This is a 66 year old female with a complex medical history who presents with worsening dyspnea withexertion as well as chest pain. This localized into her lower chest and upper abdomen and she did get some relief with GI cocktail which certainly speaks to GI pathology. It does not explain the shortness of breath. Chest x ray is negative for any acute process, her mediastinum is normal making aorticdissection unlikely. She does have a history of PE, but is already on Coumadin with an INR of 1.9. Orlin not think this the case in terms of her symptoms. She had no fever to make me concerned for pneumonia or infectious pathology. I think most likely this is GI related though I cannot completely rule out a cardiac pathology. She is chest pain free at this time and we will admit her for serial troponins and a rule out. She does not meet the criteria for the CPEU due to her inability to complete the exercise protocol. She will be admitted to Dr. Rao under the hospitalists care. Diagnosis: 1. Chest pain 2. Epigastric abdominal tenderness, likely due to gastritis verses peptic ulcer disease 3. Dyspnea on exertion 4. Anticoagulation treatment, on Coumadin Admit to telemetry. Jania Cherie 05/31/2011 [facility] EMERGENCY DEPARTMENT I, Jania Crespo, am serving as a scribe at 3:47 PM on 05/31/2011 to document services personally performed by No att. providers found, based on my observations and the provider's statements to me. Bernabe Suresh MD 06/01/11 0809 FORMER OPERATOR documented in this encounter Miscellaneous Notes Plan of Care - Lily Bates RN - 06/02/2011 5:05 AM CST Problem: IP GENERAL POC-ADULT,OB,BEHAVIORAL FVCPM Goal: Individualization/Patient-Specific Goal (Adult,OB,Behavioral The patient and/or their registration representative will achieve their patient-specific goals related to the plan of care. The patient-specific goals include: Outcome: Improving Pt rested well throughout night. No c/o chest pain. VSS. Tele Sr with ST depression and PACs/PVCs. Second half of stress test today. NPO for this. Will probably DC if test negative. Will continue to monitor. FORMER OPERATOR Plan of Care - Karina Parikh RN - 06/01/2011 4:30 PM CST Problem: IP GENERAL POC-ADULT,OB,BEHAVIORAL FVCPM Goal: Individualization/Patient-Specific Goal (Adult,OB,Behavioral The patient and/or their registration representative will achieve their patient-specific goals related to the plan of care. The patient-specific goals include: Outcome: Improving Lexiscan (first half) completed today. Denies pain. Ate after return to floor, tolerated well. FORMER OPERATOR Plan of Care - Lizette Oliveros RN - 06/01/2011 5:06 AM CST Problem: IP GENERAL POC-ADULT,OB,BEHAVIORAL FVCPM Goal: Individualization/Patient-Specific Goal (Adult,OB,Behavioral The patient and/or their registration representative will achieve their patient-specific goals related to the plan of care. The patient-specific goals include: Outcome: No Change Pt. Resting in bed during the shift. Pt. Did have cpap on during the night. Pt. Denies any chest pain, denies any SOB. Alert and orientedx3. Tele=SR with occ. PAC. Pt. NPO for lexiscan stress test. Will continue to monitor pt. Pt. Denies any needs at this time. FORMER OPERATOR Pharmacy-Admission Medication History - Janie Forrest, PharmD - 05/31/2011 9:33 PM CST Med Rec was completed by Dr. Rao - additional meds identified entered by Janie Forrest, Pharm. D. Per request of MD. FORMER OPERATOR documented in this encounter Plan of Treatment Upcoming Encounters Date Type Specialty Care Team Description 11/15/2022 Virtual Visit Pharm D Haylie Cheung, FOR[facility] [address] [place] [phone] ( winter) 11/15/2022 Virtual Visit [place] [address] [place] [address] [place] [phone] (Lena max) 03/03/2023 Virtual Visit Neurology Erlinda Barber MD [address] [facility] [address] [place] [address] ( winter) documented as of this encounter Procedures Procedure Name Priority Date/Time Associated Comments Diagnosis INR Routine 06/02/2011 6:16 AM Results f or this TUBE FORMER OPERATOR procedure are i n the results section. NM MPI WITH LEXISCAN Routine 06/01/2011 1:07 PM R esults for this TUBE FORMER OPERATOR procedure are i n the results section. ZZ STRESS LEXISCAN Routine 06/01/2011 10:10 Resul ts for this TEST AM TUBE FORMER OPERATOR procedure are i n the results section. INR Routine 06/01/2011 8:55 AM Results f or this TUBE FORMER OPERATOR procedure are i n the results section. TROPONIN I Timed 06/01/2011 2:10 AM Results f or this TUBE FORMER OPERATOR procedure are i n the results section. TROPONIN I STAT 05/31/2011 10:05 Results for this PM TUBE FORMER OPERATOR procedure are i n the results section. LIPID PROFILE Routine 05/31/2011 10:05 Results fo r this PM TUBE FORMER OPERATOR procedure are i n the results section. XR CHEST 2 VIEWS STAT 05/31/2011 6:34 PM Resul ts for this TUBE FORMER OPERATOR procedure are i n the results section. CBC WITH PLATELETS & STAT 05/31/2011 4:40 PM R esults for this DIFFERENTIAL TUBE FORMER OPERATOR procedure are i n the results section. TROPONIN I STAT 05/31/2011 4:40 PM Results f or this TUBE FORMER OPERATOR procedure are i n the results section. INR STAT 05/31/2011 4:40 PM Results f or this TUBE FORMER OPERATOR procedure are i n the results section. NT PROBNP INPATIENT STAT 05/31/2011 4:40 PM Re sults for this TUBE FORMER OPERATOR procedure are i n the results section. LIPASE STAT 05/31/2011 4:40 PM Results f or this TUBE FORMER OPERATOR procedure are i n the results section. COMPREHENSIVE STAT 05/31/2011 4:40 PM Results for this METABOLIC PANEL TUBE FORMER OPERATOR procedure ar e in the results section. AMYLASE STAT 05/31/2011 4:40 PM Results f or this TUBE FORMER OPERATOR procedure are i n the results section. EKG 12-LEAD, TRACING STAT 05/31/2011 3:43 PM R esults for this ONLY TUBE FORMER OPERATOR procedure are i n the results section. HIM ECG SCAN Routine 05/31/2011 documented in this encounter Results (ABNORMAL) INR (06/02/2011 6:16 AM TUBE FORMER OPERATOR) P athologist Signature INR 2.06 (H) 0.86 - 1.14 [facility] Specimen Anatomical Collection Method Collection Time Receive d Time (Source) Location / / Volume Laterality Blood specimen 06/02/2011 6:16 AM 011 6:26 (specimen) TUBE FORMER OPERATOR AM TUBE FORMER OPERATOR Bernabe Gan DO LAB - BLOOD ORDERABLES Performing Organization Address City/State/ZIP Code Phon e Number M [facility] [address] [place], [place] [address] [facility] NM Mpi with lexiscan (06/01/2011 1:07 PM TUBE FORMER OPERATOR) Anatomical Region Laterality Modality Chest Other Specimen (Source) Anatomical Collection Method Collection Time Re ceived Time Location / / Volume Laterality 06/01/2011 1:07 PM TUBE FORMER OPERATOR Impressions 06/10/2011 10:33 AM TUBE FORMER OPERATOR MARZENA EVANS ?? GATED MYOCARDIAL PERFUSION SCINTIGRAPHY WITH INTRAVENOUS PHARMACOLOGIC VASODILATATION LEXISCAN 2 DAY PROTOCOL (stress/rest) ?? Done on 06/01/2011. Ms. Evans is a 66-y ear-old female. 1945. ?? INDICATION: ??Assessment of myocardial perfusion with a history of hypertension. Indication for pharmacolog ic stress testing was evaluation of chest pain. ?? IMPRESSIONS: I ?Lexiscan Test 1. ?Lexiscan infusion dictated un isaias separate cover. 2. ?ECG report done under separat e cover II ?Myocardial Perfusion Scintigrap hy 1. ?Myocardial perfusion using si ngle isotope technique appeared normal. Regadenoson did not induce any s ignificant reversible myocardial ischemia. ??2. ??Gating demonstrated normal left ventricular systolic contraction and wall thickening post-str ess. 3. ??The ejection fraction was 60% post -stress. 4. ??The left ventricle was mildly enla rged. 5. ??Regadenoson did not induce any sign ificant transient ischemic dilatation of the left ventricle. 6. ??No previous study was available for comparison. INTRAVENOUS LEXISCAN MONITORING PERIOD: Done under separate cover. Lexiscan was administered at 0.08 mg/ml Rapid Bolus Injection, for 10 seconds, 0.4 mg/5mL intravenously. 31.7m Ci Tc99m sestamibi was injected intravenously 10-20 seconds aft er Lexiscan and 5mL saline flush. ?? ECG report done under separate cover. ?? Gamma camera imaging was performed late r using 180* SPECT technique. ?? RESTING TOMOGRAPHY: ??The patient retur cristopher one day later. Following the injection of 32.1mCi of technetium-9 9m sestamibi intravenously, gamma camera imaging was performed using 180* SPECT technique. ?? TOMOGRAPHIC RESULTS: ??On the stress im ages, perfusion defects were seen in the anterior segments of the lef t ventricle. ??On the rest images, similar perfusion defects were s een. ??Rotating images did show extensive breast attenuation of the anterior wall, thus these fixed perfusion defects are attributable to attenuation artifact. ?? Gated images demonstrated normal left ve ntricular systolic contraction and wall thickening post-str ess. ??The ejection fraction post-stress was 60%. Erinn Rao MD IMG NM ORDERABLES Stress lexiscan test (06/01/2011 10:10 AM TUBE FORMER OPERATOR) Component Value Ref Test Analysis Performed At [facility] gist Range Method Time Signature IMAGECAST RADIOLOGY RESULT MARZENA EVANS RESULTS ?? EKG PORTION OF GATED EXERCISE MYOCARDIAL TEST ?? INDICATION FOR STUDY: ??Chest pain, dyspnea on exertion. ?? TEST SUMMARY: ??The patient was given a bolus of Lexiscan an d monitored for 5 minutes. ??Resting heart rate 73 beats per m inute. ?? Maximal heart rate 82 beats per minute. ??Resting blood pres sure 130/73. ??Ending blood pressure 147/78. ??The patient experi enced shortness of breath post injection. ??This resolves in the r ecovery period. ??Baseline electrocardiogram demonstrates a normal s inus rhythm, normal axis with occasional PACs and nonspecific dif fuse ST abnormalities. ??Post injection, occasional PVC and frequent PACs are noted. ??There is no significant change in ST segments. ?? TEST CONCLUSION: ??Nondiagnostic Lexiscan ECG for evidence o f ischemia. ??The nuclear portion of the study will be reporte d separately. Specimen (Source) Anatomical Collection Method Collection Time Re ceived Time Location / / Volume Laterality 06/01/2011 10:10 AM TUBE FORMER OPERATOR Mari Esparza MD CV CARDIAC SERVICES ORDERABL ES Performing Organization Address City/State/ZIP Code Phon e Number RADIOLOGY RESULTS (ABNORMAL) INR (06/01/2011 8:55 AM TUBE FORMER OPERATOR) athologist Signature INR 1.94 (H) 0.86 - 1.14 [facility] Specimen Anatomical Collection Method Collection Time Receive d Time (Source) Location / / Volume Laterality Blood specimen 06/01/2011 8:55 AM 011 9:04 (specimen) TUBE FORMER OPERATOR AM TUBE FORMER OPERATOR Bernabe Gan DO LAB - BLOOD ORDERABLES Performing Organization Address City/[facility]/ZIP Code [facility] barrett Wyman [facility] [address] [place], [place] [address] [facility] Troponin I (06/01/2011 2:10 AM TUBE FORMER OPERATOR) athologist Signature Troponin I ES <0.012 0.000 - [place] 0.034 ug/L [facility] Specimen Anatomical Collection Method Collection Time Receive d Time (Source) Location / / Volume Laterality Blood specimen 06/01/2011 2:10 AM 011 2:23 (specimen) TUBE FORMER OPERATOR AM TUBE FORMER OPERATOR Erinn Rao MD LAB - BLOOD ORDERABLES Performing Organization Address [facility]/[address] [facility] (ABNORMAL) Lipid profile (05/31/2011 10:05 PM TUBE FORMER OPERATOR) athologist Signature Cholesterol 148 0 - 200 [place] mg/dL [facility] Comment: LDL Cholesterol is the primary guide to therapy. The NCEP recommends further evaluation of: patients with cholesterol greater than 200 mg/dL if additional risk facto rs are present, cholesterol greater than 240 mg/dL, triglycerides greater than 1 50 mg/dL, or HDL less than 40 mg/dL. Triglycerides 140 0 - 150 mg/dL [facility] HDL Cholesterol 41 (L) 50 - 110 mg/dL [facility] LDL Cholesterol Calculated 79 0 - 129 mg/dL [facility] Comment: LDL Cholesterol is the primary guide to therapy: LDL-cholesterol goal in high risk patients is <100 mg/dL and in very high risk patients is <70 mg/dL. VLDL-Cholesterol 28 0 - 30 mg/dL [facility] Cholesterol/HDL Ratio 3.6 0.0 - 5.0 [facility] Specimen Anatomical Collection Method Collection Time Receive d Time (Source) Location / / Volume Laterality Blood specimen 05/31/2011 10:05 1 (specimen) PM TUBE FORMER OPERATOR 10:29 PM TUBE FORMER OPERATOR Erinn Rao MD LAB - BLOOD ORDERABLES Performing Organization Address City/[facility]/ZIP Code [facility] barrett Wyman [place] [address], [place] [address] [facility] Troponin I (05/31/2011 10:05 PM TUBE FORMER OPERATOR) P athologist Signature Troponin I ES <0.012 0.000 - [place] 0.034 ug/L [facility] Specimen Anatomical Collection Method Collection Time Receive d Time (Source) Location / / Volume Laterality Blood specimen 05/31/2011 10:05 1 (specimen) PM TUBE FORMER OPERATOR 10:29 PM TUBE FORMER OPERATOR Erinn Rao MD LAB - BLOOD ORDERABLES Performing Organization Address [facility] barrett Wyman [place] [address] [place], [place] [address] [facility] X-ray Chest 2 vws* (05/31/2011 6:34 PM TUBE FORMER OPERATOR) Anatomical Region Laterality Modality Chest Other Specimen (Source) Anatomical Collection Method Collection Time Re ceived Time Location / / Volume Laterality 05/31/2011 6:34 PM TUBE FORMER OPERATOR Impressions 05/31/2011 7:04 PM TUBE FORMER OPERATOR CHEST TWO VIEW* ??May 31, 2011 6:34:00 P M HISTORY: Chest pain. COMPARISON: None. FINDINGS: Cardiac silhouette is upper no rmal. Pulmonary vasculature is not distended. Lungs are clear. No pleur al fluid. IMPRESSION: ?No acute disease. Bernabe Suresh MD IMG DIAGNOSTIC IMAGING ORDER [place] Troponin I (05/31/2011 4:40 PM TUBE FORMER OPERATOR) P athologist Signature Troponin I ES <0.012 0.000 - [place] 0.034 ug/L [facility] Specimen Anatomical Collection Method Collection Time Receive d Time (Source) Location / / Volume Laterality Blood specimen 05/31/2011 4:40 PM 011 4:45 (specimen) TUBE FORMER OPERATOR PM TUBE FORMER OPERATOR Bernabe Suresh MD LAB - BLOOD ORDERABLES Performing Organization Address City/State/ZIP Code Phon e Number Mally [facility] [address], [place] [address] [facility] Nt probnp inpatient (BNP) (05/31/2011 4:40 PM TUBE FORMER OPERATOR) athologist Signature N-Terminal Pro 176 0 - 900 [place] BNP Inpatient pg/mL [facility] Comment: Reference range shown and results flagge d as abnormal are suggested inpatient cut points for confirming diagnosis if CHF in an acute setting. Establishing a baseline value for each individual latoya ent is useful for follow-up. An inpatient or emergency department NT-pr oPBNP <300 pg/mL effectively rules out acute CHF, with 99% negative predictive value. The outpatient non-acute reference range for ruling out CHF is: 0-125 pg/mL (age 18 to less than 75) 0-450 pg/mL (age 75 yrs and older) Specimen Anatomical Collection Method Collection Time Receive d Time (Source) Location / / Volume Laterality Blood specimen 05/31/2011 4:40 PM 011 4:45 (specimen) TUBE FORMER OPERATOR PM TUBE FORMER OPERATOR Bernabe Suresh MD LAB - BLOOD ORDERABLES Performing Organization Address City/[facility]/ZIP Code Phon e Garo Bal [facility] [address] [place], [place] [address] [facility] Lipase (05/31/2011 4:40 PM TUBE FORMER OPERATOR) athologist Signature Lipase 148 20 - 250 [facility] U/L [facility] Specimen Anatomical Collection Method Collection Time Receive d Time (Source) Location / / Volume Laterality Blood specimen 05/31/2011 4:40 PM 011 4:45 (specimen) TUBE FORMER OPERATOR PM TUBE FORMER OPERATOR Bernabe Suresh MD LAB - BLOOD ORDERABLES Performing Organization Address City/[facility]/ZIP Code Phon e Number Mally [facility] [address] [place], [place] [address] [facility] (ABNORMAL) INR (05/31/2011 4:40 PM TUBE FORMER OPERATOR) athologist Signature INR 1.90 (H) 0.86 - 1.14 [facility] Specimen Anatomical Collection Method Collection Time Receive d Time (Source) Location / / Volume Laterality Blood specimen 05/31/2011 4:40 PM 011 4:45 (specimen) TUBE FORMER OPERATOR PM TUBE FORMER OPERATOR Bernabe Suresh MD LAB - BLOOD ORDERABLES Performing Organization Address City/State/ZIP Code Phon e Number M [place] [id number] [place], [place] [address] [facility] Comprehensive metabolic panel (05/31/2011 4:40 PM TUBE FORMER OPERATOR) athologist Signature Sodium 136 133 - 144 [place] mmol/L [facility] Potassium 4.1 3.4 - 5.3 [place] mmol/L [facility] Chloride 102 94 - 109 [place] mmol/L [facility] Carbon Dioxide 28 20 - 32 [place] mmol/L [facility] Anion Gap 6 6 - 17 [place] mmol/L [facility] Glucose 97 60 - 99 [place] mg/dL [facility] Urea Nitrogen 21 7 - 30 [place] mg/dL [facility] Creatinine 0.77 0.52 - [facility] 1.[facility] mg/dL [facility] GFR Estimate 75 >60 [place] mL/min/1.[address] LAB GFR Estimate If >90 >60 [place] Black mL/min/[address] [place] [address] LAB Calcium 8.7 8.5 - 10.4 [place] mg/dL [facility] Bilirubin Total 0.6 0.2 - 1.3 [place] mg/dL [facility] Albumin 3.8 3.3 - 4.9 [place] g/dL [facility] Protein Total 7.2 6.8 - 8.8 [place] g/dL [facility] Alkaline 122 40 - 150 [place] Phosphatase U/L [facility] ALT 25 0 - 50 U/L [facility] AST 22 0 - 45 U/L [facility] Specimen Anatomical Collection Method Collection Time Receive d Time (Source) Location / / Volume Laterality Blood specimen 05/31/2011 4:40 PM 011 4:45 (specimen) TUBE FORMER OPERATOR PM TUBE FORMER OPERATOR Bernabe Suresh MD LAB - BLOOD ORDERABLES Performing Organization Address City/State/ZIP Code Phon e Number [facility] [address] [place], [place] [address] [facility] (ABNORMAL) CBC with platelets differential (05/31/2011 4:40 PM TUBE FORMER OPERATOR) [facility] gist Method Time Signature WBC 7.0 4.0 - [place] 11.0 [facility] 10e9/L [facility] RBC Count 4.44 3.8 - 5.2 [place] 10e12/L [facility] Hemoglobin 13.8 11.7 - [place] 15.7 g/dL [facility] Hematocrit 40.5 35.0 - [place] 47.0 % [facility] MCV 91 78 - 100 [place] fl [facility] MCH 31.1 26.5 - [place] 33.0 pg [facility] MCHC 34.1 31.5 - [place] 36.5 g/dL [facility] RDW 12.7 10.0 - [place] 15.0 % [facility] Platelet Count 257 150 - 450 [place] [facility] Diff Method Automated [facility] LAB % Neutrophils 67.3 40 - 75 % [facility] % Lymphocytes 18.3 (L) 20 - 48 % [facility] % Monocytes 9.6 0 - 12 % [facility] % Eosinophils 4.1 0 - 6 % [facility] % Basophils 0.4 0 - 2 % [facility] % Immature 0.3 0 - 0.4 % [place] Granulocytes [facility] Absolute 4.7 1.6 - 8.3 [place] Neutrophil 10e9/L [facility] Absolute 1.3 0.8 - 5.3 [place] Lymphocytes 10e9/L [facility] Absolute 0.7 0.0 - 1.3 [place] Monocytes 10e9/L [facility] Absolute 0.3 0.0 - 0.7 [place] Eosinophils 10e9/L [facility] Absolute 0.0 0.0 - 0.2 [place] Basophils 10e9/L [facility] Abs Immature 0.0 0 - 0.03 [place] Granulocytes 10e9/L [facility] Specimen Anatomical Collection Method Collection Time Receive d Time (Source) Location / / Volume Laterality Blood specimen 05/31/2011 4:40 PM 011 4:45 (specimen) TUBE FORMER OPERATOR PM TUBE FORMER OPERATOR Bernabe Suresh MD LAB - BLOOD ORDERABLES Performing Organization Address City/State/ZIP Code Phon e Number M [facility] [address] [place], [place] [address] [facility] Amylase (05/31/2011 4:40 PM TUBE FORMER OPERATOR) P athologist Signature Amylase 66 30 - 110 [facility] U/L [facility] Specimen Anatomical Collection Method Collection Time Receive d Time (Source) Location / / Volume Laterality Blood specimen 05/31/2011 4:40 PM 011 4:45 (specimen) TUBE FORMER OPERATOR PM TUBE FORMER OPERATOR Bernabe Suresh MD LAB - BLOOD ORDERABLES Performing Organization Address [facility]/ZIP [facility] Phon e Number M [facility] [address], [place] [address] [facility] EKG 12-lead, tracing only (05/31/2011 3:43 PM TUBE FORMER OPERATOR) Component Value Ref Range Test Analysis Performed Pathologis t Method Time At Signature Ventricular Rate 72 BPM RADIOLOGY RESULTS Atrial Rate 72 BPM RADIOLOGY RESULTS AL Interval 150 ms RADIOLOGY RESULTS QRS Duration 86 ms RADIOLOGY RESULTS QT 414 ms RADIOLOGY RESULTS QTc 453 ms RADIOLOGY RESULTS P [place] 44 degrees RADIOLOGY RESULTS R AXIS 29 degrees RADIOLOGY RESULTS T [place] 19 degrees RADIOLOGY RESULTS Interpretation Sinus rhythm with RADIOLO GY ECG Premature atrial RESULTS complexes with Aberrant conduction Interpretation Nonspecific ST RADIOLOGY ECG abnormality RESULTS Interpretation Abnormal ECG RADIOLOGY ECG RESULTS Interpretation Unconfirmed report - interpr etation of this ECG is computer generated - see RADIOLOGY ECG medical record for final interpretation RESULTS Specimen (Source) Anatomical Collection Method Collection Time Re ceived Time Location / / Volume Laterality 05/31/2011 3:43 PM TUBE FORMER OPERATOR Bernabe Suresh MD ECG ORDERABLES Performing Organization Address City/[facility]/ZIP Code Phon e Number RADIOLOGY RESULTS ECG - HIM ECG Scan (05/31/2011) Narrative This result has an attachment that is no t available. Jose Juan Valladares MD ECG ORDERABLES documented in this encounter Visit Diagnoses Diagnosis Chest pain Chest pain, unspecified Epigastric pain Abdominal pain, epigastric Dyspnea on exertion Other dyspnea and respiratory abnormalit y Essential hypertension, benign Contact dermatitis and other eczema, due to unspecified cause Other pulmonary embolism and infarction senior living (current) use of anticoagulant s Long-term (current) use of anticoagulant s documented in this encounter Administered Medications Inactive Administered Medications - up to 3 most recent administrations Medication Order MAR Action Action Date Dose Rate Site aspirin chewable tablet 162 mg Given 05/31/2011 4:15 PM TUBE FORMER OPERATOR 162 mg 162 mg, Oral, ONCE, On Mon05/31/11 at 1615, For 1 dose aspirin EC tablet 81 mg Given 06/02/2011 9:40 AM TUBE FORMER OPERATOR 81 mg 81 mg, Oral, DAILY, First dose on Mon06/01/11 at 0900, DO NOT CRUSH. Given 06/01/2011 9:13 AM TUBE FORMER OPERATOR 81 mg atenolol (TENORMIN) tablet 25 mg Given 06/02/2011 9:40 AM TUBE FORMER OPERATOR 25 mg 25 mg, Oral, 2 TIMES DAILY, First dose on Mon05/31/11 at 2215 Given 06/01/2011 9:09 PM TUBE FORMER OPERATOR 25 mg Given 06/01/2011 2:38 PM TUBE FORMER OPERATOR 25 mg cetirizine (ZYRTEC) tablet 5 mg Given 06/02/2011 9:40 AM TUBE FORMER OPERATOR 5 mg 5 mg, Oral, 2 TIMES DAILY, First dose on Mon05/31/11 at 2215 Given 06/01/2011 9:09 PM TUBE FORMER OPERATOR 5 mg Given 06/01/2011 2:38 PM TUBE FORMER OPERATOR 5 mg cholecalciferol (VITAMIN D) tablet 1,000 Given 011 9:40 AM TUBE FORMER OPERATOR 1,000 Units Units 1,000 Units, Oral, DAILY, First dose on Mon06/01/11 at 0900 Given 06/01/2011 2:39 PM TUBE FORMER OPERATOR 1,000 Units lidocaine (XYLOCAINE) 2 % 15 mL, alum & mag Given 05/31/2011 4:33 PM TUBE FORMER OPERATOR 30 mLs hydroxide-simethicone (MYLANTA ES/MAALOX ES) 15 mL GI Cocktail 30 mL, Oral, ONCE, On Mon05/31/11 at 1615, For 1 dose losartan (COZAAR) tablet 100 mg Given 06/02/2011 9:40 AM TUBE FORMER OPERATOR 100 mg 100 mg, Oral, DAILY, First dose on Mon06/01/11 at 0900 Given 06/01/2011 9:13 AM TUBE FORMER OPERATOR 100 mg PANtoprazole (PROTONIX) EC tablet 40 mg Given 06/02/2011 9:40 AM TUBE FORMER OPERATOR 40 mg 40 mg, Oral, EVERY MORNING BEFORE BREAKFAST, First dose on Mon06/01/11 at 0800, DO NOT CRUSH. Given 06/01/2011 9:13 AM TUBE FORMER OPERATOR 40 mg regadenoson (LEXISCAN) 0.4 MG/5ML inject ion Starting on Mon06/01/11 at 0943, For 1 dose, BAILEE STEPHENS: Cabinet Override regadenoson (LEXISCAN) injection 0.4 mg Given 06/01/2011 10:25 AM TUBE FORMER OPERATOR 0.4 mg 0.4 mg, Intravenous, ONCE, On Mon06/01/11 at 0945, For 1 dose sodium chloride 0.9 % flush 3 mL Given 06/02/2011 9:43 AM TUBE FORMER OPERATOR 3 mLs 3 mL, Intravenous, EVERY 8 HOURS, First dose on Mon05/31/11 at 2130, And Q1H PRN, to lock peripheral IV dormant line. sodium chloride 0.9 % flush 3 mL Given 06/01/2011 11:47 PM TUBE FORMER OPERATOR 3 mLs 3 mL, Intravenous, EVERY 8 HOURS, First dose on Mon05/31/11 at 2130, And Q1H PRN, to lock peripheral IV dormant line. Given 06/01/2011 9:09 PM TUBE FORMER OPERATOR 3 mLs Given 06/01/2011 2:40 PM TUBE FORMER OPERATOR 3 mLs triamterene-hydrochlorothiazide (DYAZIDE) Given 2010 9:13 AM TUBE FORMER OPERATOR 1 capsule 37.5-25 MG per capsule 1 capsule 1 capsule, Oral, EVERY MORNING, First dose on Mon06/01/11 at 0900 triamterene-hydrochlorothiazide Given 06/02/2011 12:11 PM 1 caps ule (MAXZIDE-25) 37.5-25 MG per tablet 1 tab let TUBE FORMER OPERATOR 1 tablet, Oral, DAILY, First dose on Mon06/02/11 at 1215 warfarin (COUMADIN) tablet 10 mg Given 06/01/2011 6:05 PM TUBE FORMER OPERATOR 10 mg 10 mg, Oral, ONCE AT 6PM, On Mon06/01/11 at 1800, For 1 dose, Dispose as HW-P warfarin (COUMADIN) tablet 5 mg Given 05/31/2011 10:50 PM TUBE FORMER OPERATOR 5 mg 5 mg, Oral, ONCE, On Mon05/31/11 at 2245, For 1 dose, Dispose as HW-P documented in this encounter Active and Recently Administered Medications Times are shown in TUBE FORMER OPERATOR. Scheduled Medication Order 05/31/2011 06/01/2011 06/02/2011 aspirin chewable tablet 162 mg (COMPLETED) 1615 (Given - Provider: Jose Juan Krishnamurthy RN (Bruce)) 162 mg, Oral, ONCE, Mon05/31/11 at 1615, For 1 dose aspirin EC tablet 81 mg (CANCELED) 0913 (Given - Provider: Karina Parikh RN) 0940 (Given - Provider: Trey Shannon LPN - Comment: at stress test) 81 mg, Oral, DAILY, First dose on Mon06/01/11 at 0900, DO NOT C CORRIGAN. atenolol (TENORMIN) tablet 25 mg (CANCELED) 2232 (Give n - Provider: Ligia Jimenez RN) 0900 (Not Given - Provider: Karina flor RN - Reason: Medication not available)1438 (Given - Provider: Karina Parikh RN)2109 (Given - Provider: Ligia Jimenez RN) 0940 (Given - Provider: Trey Shannon LPN - Comment: at stress test) 25 mg, Oral, 2 TIMES DAILY, First dose on Mon05/31/11 at 2215 cetirizine (ZYRTEC) tablet 5 mg (CANCELED) 2250 (Given - Provider: Neelima Maurer RN) 0900 (Not Given - Provider: Karina flor RN - Reason: Medication not available)1438 (Given - Provider: Karina Parikh RN)2109 (Given - Provider: Ligia Jimenez RN) 0940 (Given - Provider: Trey Shannon LPN - Comment: at stress test) 5 mg, Oral, 2 TIMES DAILY, First dose on Mon05/31/11 at 2215 cholecalciferol (VITAMIN D) tablet 1,000 Units (CANCELED) 0900 (Not Given - Provider: Karina Parikh RN - Reason: Medication not available)1439 (Given - Provider: Karina Parikh RN) 0940 (Given - Provider: Trey Shannon LPN - Comment: at stress test) 1,000 Units, Oral, DAILY, First dose on Mon06/01/11 at 0900 lidocaine (XYLOCAINE) 2 % 15 mL, alum & mag hydroxide-simethicone (MYLANTA ES/MAALOX ES) 15 mL GI Cocktail (COMPLETED) 1633 (Given - Provider: Jose Juan Krishnamurthy RN (Bruce)) 30 mL, Oral, ONCE, Mon05/31/11 at 1615, For 1 dose losartan (COZAAR) tablet 100 mg (CANCELED) 0913 (Given - Provider: Karina Parikh RN) 0940 (Given - Provider: Trey Shannon LPN - Comment: at stress test) 100 mg, Oral, DAILY, First dose on Mon06/01/11 at 0900 PANtoprazole (PROTONIX) EC tablet 40 mg (CANCELED) 0913 (Given - Provider: Karina Parikh RN) 0940 (Given - Provider: Trey Shannon LPN - Comment: at stress test) 40 mg, Oral, EVERY MORNING BEFORE BREAKF AST, First dose on Mon06/01/11 at 0800, DO NOT CRUSH. regadenoson (LEXISCAN) injection 0.4 mg (COMPLETED) 1025 (Given - Provider: Bailee Stephens RN) 0.4 mg, Intravenous, ONCE, Mon06/01/11 at 0945, For 1 dose sodium chloride 0.9 % flush 3 mL (CANCELED) 2130 ([facility] eled Entry - Provider: Lizette Oliveros RN) 0530 (Not Given - Provider: Lizette almonte RN - Reason: Other - Comment: Pt. has one IV site to left hand and had flush at 2400)1330 (Canceled Entry - Provider: Lily Bates RN - Comment: Unsure if given on previous shift.) 0000 (Not Given - Provider: Lily Bates RN - Reason: Other - Comment: Only 1 IV site.)0943 (Given - Provider: Trey Shannon LPN - Comment: at stress test) 3 mL, Intravenous, EVERY 8 HOURS, First dose on Mon05/31/11 at 2130, And Q1H PRN, to lock peripheral IV dormant line. 2129 ([place]ance[place] d Entry - Provider: Lily Bates RN - Comment: Unsure if given on previous shift) sodium chloride 0.9 % flush 3 mL (CANCELED) 0006 (Given - Provider: Lizette Oliveros RN)0530 (Not Given - Provider: Lizette Oliveros RN - Reason: Other - Comment: Pt. had flush at 2400)0918 (Given - Provider: Karina Parikh RN)1440 (Given - Provider: Karina Parikh RN) 0800 (Not Given - Provider: Trey Shannno LPN - Reason: Other - Comment: Duplicate order) 3 mL, Intravenous, EVERY 8 HOURS, First dose on Mon05/31/11 at 2130, And Q1H PRN, to lock peripheral IV dormant line. 2108 (Given - Provider: Ligia Jimenez RN)2347 (Given - Provider: Lily Bates RN) triamterene-hydrochlorothiazide (DYAZIDE ) 37.5-25 MG per capsule 1 capsule (CANCELED) 0913 (Given - Provider: Karina Parikh RN) 0900 (Canceled Entry) 1 capsule, Oral, EVERY MORNING, First dose on Mon06/01/11 at 09 00 triamterene-hydrochlorothiazide (MAXZIDE -25) 37.5-25 MG per tablet 1 tablet (CANCELED) 1211 (Given - Provid er: Trey Shannon LPN) 1 tablet, Oral, DAILY, First dose on Mon06/02/11 at 1215 warfarin (COUMADIN) tablet 10 mg (COMPLETED) 1805 (Given - Provider: Ligia Jimenez RN) 10 mg, Oral, ONCE AT 6PM, Mon06/01/11 at 1800, For 1 dose, Disp ose as HW-P warfarin (COUMADIN) tablet 5 mg (COMPLETED) 2250 (Give n - Provider: Neelima Maurer RN) 5 mg, Oral, ONCE, Mon05/31/11 at 2245, For 1 dose, Dispose as H W-P documented in this encounter Care Teams Block Handler Relationship Specialty Start Date End Date Mari Esparza MD PCP - General 10/05/10 10/10/[address] [facility] [place] [id number] documented as of this encounter
--- OUTSIDE RECORDS SUMMARY | 2022-06-15 13:25 | XMS_ITS | Encounter Summary ---
:1945 Author Organization [place] Address [address] [place] [address] Care Team Providers Name Role Phone Lucero Stevenson MD Primary Care Provider [phone] Reason for Visit Reason Onset Date Comments Labs Only 11/22/2011 Encounter Details Date Type Department Care Team Description 11/22/2011 Telephone [facility] Lucero Stevenson, Labs Only [address] [facility] [place] [address] [facility] [phone] [address] [place], [place] [address] (Wo rk) Social History [...] Telephone Encounter - Lucero Stevenson MD - 11/23/2011 10:24 AM CDT Orders placed. Lucero Stevenson MD Telephone Encounter - Clementine Johnson - 11/22/2011 4:21 PM CDT Sent to MD to review chart and let us know what labs to order. Telephone Encounter - Denis Vizcarra - 11/22/2011 4:03 PM CDT Charlette has a lab only appointment on 12/03/11. There are no orders for her in [facility] or any tests due in health maintenance. Please place future lab orders and sign them. Denis Mishra documented in this encounter Plan of Treatment Upcoming Encounters Date Type Specialty Care Team Description 11/15/2022 Virtual Visit Pharm D Haylie Cheung, [facility] [address] [facility] [place] [address] (Wo rk) 11/15/2022 Virtual Visit IM/Peds Yane Barraza MD [address] [facility] [place] [phone] (Wo rk) 03/03/2023 Virtual Visit Neurology Erlinda Barber MD [address] [facility] [address] [place] [address] (Wo rk) documented as of this encounter Visit Diagnoses Diagnosis Pre-diabetes - Primary Other abnormal glucose BENIGN HYPERTENSION Essential hypertension, benign Vitamin D deficiencies Unspecified vitamin D deficiency documented in this encounter Care Teams Regulatory Auditor Relationship Specialty Start Date End Date Lucero Stevenson MD PCP - General Pediatrics 10/11/11 04/22/19 documented as of this encounter
--- OUTSIDE RECORDS SUMMARY | 2022-06-15 13:25 | XMS_ITS | Encounter Summary ---
:1945 Author Organization [place] Address [address] [place] [address] Care Team Providers Name Role Phone Lucero Knox MD Primary Care Provider [phone] Reason for Referral Referral not Required - Closed Specialty Diagnoses / Procedures Referred By Contact Refer red To Contact Diagnoses HL (hearing loss) Lucero Knox, [facility] [address] [facility] [address] [place], [place] [id number] [place] [address] Referral ID Status Reason Start Date Expiration Date Visits Requ ested Visits Authorized [id number] Closed 12/06/2011 06/03/2012 1 1 Referral not Required - Closed Specialty Diagnoses / Procedures Referred By Contact Refer red To Contact Diagnoses Morbid obesity (H) Lucero Knox [facility] [address] [place] [address] [address] [place] [address] Referral ID Status Reason Start Date Expiration Date Visits Requ ested Visits Authorized [id number] Closed 12/06/2011 06/03/2012 1 1 Reason for Visit Reason Comments Pre Visit Planning - Done Medicare Visit Encounter Details Date Type Department Care Team Description 12/06/2011 Office Visit [facility] Lucero Knox physical exam (Primary Dx); Yarelis Littlejohn MD HL (hearing loss); [address] [place] Morbid obesity (H); [place] [phone] [address] Vaccin strep pneumoniae; [phone] Visit for screening mammogram; [place], [place] [address] Vitamin D deficiencies [phone] (Wo rk) Social History Tobacco Use Types [...] Sign Reading Time Taken Comments Blood Pressure 132/66 12/06/2011 2:59 PM CDT Pulse 76 12/06/2011 2:59 PM CDT Temperature 36.8 ??C (98.3 ??F) 12/06/2011 2:59 PM CDT Respiratory Rate - - Oxygen Saturation - - Inhaled Oxygen Concentration - - Weight 182 kg (401 lb 4 oz) 12/06/2011 2:59 PM CDT Height 168.3 cm (5' 6.25) 12/06/2011 2:59 PM CDT Body Mass Index 64.28 12/06/2011 2:59 PM CDT documented in this encounter Patient Instructions Patient InstructionsBee Hensley - 12/01/2011 11:17 AM CDT The best way to stay healthy is to live a healthy lifestyle. A healthy lifestyle includes regular exercise, eating a well balanced diet, keeping a healthy weight and not smoking. Regular physical exams and screening tests are another important way to take care of yourself. Preventive exams provided by health care providers can find health problems early when treatment works best and can keep you from getting certain diseases or illnesses. Preventive services include exams, labtests, screenings, shots, monitoring and information to help you take care of your own health. All people over 65 should have a pneumonia shot. Pneumonia shots are usually only needed once in a lifetime unless your doctor decides differently. In addition to your physical exam, some screening tests are recommended: All people over 65 should have a yearly flu shot. People over 65 are at medium to high risk for Hepatitis B. Three shots are needed for complete protection. Bone mass measurement (dexa scan) is recommended every two years. Diabetes Mellitus screening is recommended every year. Glaucoma is an eye disease caused by high pressure in the eye. An eye exam is recommended every year. Cardiovascular screening tests that check your cholesterol and other blood fat (lipid) levels are recommeded every five years. Colorectal Cancer screening tests help to find pre-cancerous polyps (growths in the colon) so they can be removed before they turn into cancer. Tests ordered for screening depend on your personal and family history risk factors. Screening for breast cancer is recommeded yearly with a Mammogram. Screening for cervical and vaginal cancer is recommended with a pelvic and Pap test every two years.However if you have had an abnormal pap in the past three years or at high risk for cervical or vaginal cancer Medicare will cover a pap test and a pelvic exam every year. Here is a list of your current Health Maintenance items with a due date: Health Maintenance Topic Date Due ??? PNEUMOVAX ([facility] ASSIGNED) 2011 ??? OP ANNUAL INR REFERRAL 01/08/2012 ??? DEXA Q3 YR 03/09/2012 ??? MAMMO Q2 YR NO INBASKET MESSAGE 11/26/2012 ??? COLONOSCOPY Q10 YR INBASKET MESSAGE 02/12/2014 ??? TETANUS Q10 YR 08/27/2014 ??? LIPID MONITORING Q5 YEARS (NO INBASKET) 05/31/2016 ??? ADVANCE DIRECTIVE PLANNING Q5 YRS (NO INBASKET) 08/11/2016 documented in this encounter Progress Notes Lucero Knox MD - 12/01/2011 11:17 AM CDT Images from the original note were not included. SUBJECTIVE: Charlette Brush is a 66 year old female who presents for a Welcome to Medicare Visit. This patient's medical, social and family histories are documented in the usual sections in [facility]. Vitals: BP 132/66 Pulse 76 Temp(Src) 98.3 ??F (36.8 ??C) (Oral) Ht 5' 6.25 (1.683 m) Wt 401lb 4 oz (182.006 kg) BMI 64.28 kg/m2 BMI= Body mass index is 64.28 kg/(m^2). Visual Acuity: Right Eye: see note Left Eye: see note Both Eyes: see note Patient had eye exam on 10/24/2011 with [facility] History Substance Use Topics ??? Smoking status: Never Smoker ??? Smokeless tobacco: Never Used ??? Alcohol Use: No Diet: regular, low salt/low fat, vegetables, whole grains Physical Activity: generally inactive, due to knee pain The patient does not drink >3 drinks per day nor >7 drinks per week. Today's PHQ-2 Score: Current providers sharing in care for this patient include: Patient Care Team: Lucero Knox as PCP - General (Pediatrics) I have reviewed the following functional areas with the patient and deem them to be in the normal oraverage range for this age group: ?? Hearing impairment: Having a little hearing loss in the left ear, would like screening- see nurse's note ?? Ability to successfully perform activities of daily living: no assistance needed ?? Fall risk: ?? Have you fallen two or more times in the past year NO and Have you fallen and had an injury in the past year NO ?? Home safety: Pt has stair hand rails that needs to be replace. The following health maintenance items are reviewed in [facility] and correct as of today: Health Maintenance Topic Date Due ??? PNEUMOVAX ([facility] ASSIGNED) 2011 ??? OP ANNUAL INR REFERRAL 01/08/2012 ??? DEXA Q3 YR 03/09/2012 ??? MAMMO Q2 YR NO INBASKET MESSAGE 11/26/2012 ??? COLONOSCOPY Q10 YR INBASKET MESSAGE 02/12/2014 ??? TETANUS Q10 YR 08/27/2014 ??? LIPID MONITORING Q5 YEARS (NO INBASKET) 05/31/2016 ??? ADVANCE DIRECTIVE PLANNING Q5 YRS (NO INBASKET) 08/11/2016 Staff Signature: Bee Hensley CMA OBJECTIVE: EXAM: GENERAL APPEARANCE: Morbidly obese, alert and no [...] edemaand peripheral pulses strong ABDOMEN: soft, nontender, bowel sounds normal. Unable to asses hsm or masses due to weight MS: no musculoskeletal defects are noted and gait is age appropriate without ataxia. SKIN: no suspicious lesions or rashes. Chronic swelling and venous stasis changes of BLE NEURO: mentation intact and speech normal. Pt with difficulty getting on table due to weight and poor muscle strength PSYCH: mentation appears normal and affect normal/bright ASSESSMENT/PLAN: I spent an additional 15 min with patient over 50% in counseling on weight and weight loss options. V70.0E Annual physical exam (primary encounter diagnosis) -I reviewed supra morbidly obese bmi with patient, recommended diet and exercise changes based on bmi and current lifestyle/habits. -I reviewed pts bp which is currently at goal -we discussed health maintenance, and reviewed and updated the health maintenance section in the chart -we discussed safety and patients adjunct faculty for medical terminology health risks. 389.9AN HL (hearing loss) -needs formal hearing testing Plan: SCREENING TEST, PURE TONE, AIR ONLY, OTOLARYNGOLOGY REFERRAL 278.01 Morbid obesity -discussed weight and its health implications for her at length -would recommend gastric bypass surgery; patient has been considering -gave her info if she decides she is interested Plan: BARIATRIC ADULT REFERRAL V03.82 Vaccin strep pneumoniae Plan: PNEUMOCOCCAL VACCINE,ADULT,SQ OR IM End of Life Planning: Patient currently has an advanced directive: Yes. Practitioner is supportive of decision. COUNSELING: regular exercise healthy diet/nutrition hearing screening vaccinated for: Pneumococcal Weight management plan: Current exercise routine: no regular exercise. Established an exercise regimen with the patient. and Diet regimen was discussed. self-directed dieting Appropriate preventive services were discussed with this [...] reviewed with the patient. LUCERO KNOX MD documented in this encounter Nursing Notes 12/06/2011 3:00 PM CDT >> BEE Vogt December 06, 2011 3:11 PM Patient presents with: Pre Visit Planning - Done Welcome to Medicare Physical Exam Initial BP 132/66 Pulse 76 Temp(Src) 98.3 ??F (36.8 ??C) (Oral) Ht 5' 6.25 (1.683 m) Wt 401lb 4 oz (182.006 kg) BMI 64.28 kg/m2 Estimated Body mass index is 64.28 kg/(m^2) as calculated from the following: Height as of this encounter: 5' 6.25(1.683 m). Weight as of this encounter: 401 lb 4 oz(182.006 kg).. BP completed using cuff size: large- Radial pulse Bee Hensley, [employer] HEARING FREQUENCY: Right Ear: 500 Hz: no response 1000 Hz: 20 db HL 2000 Hz: no repsonse 4000 Hz: 20 db HL and 90 db HL Left Ear: 500 Hz: no response 1000 Hz: 40 db HL 2000 Hz: no response 4000 Hz: no response Beemanoj Hensley CMA documented in this encounter Plan of Treatment Upcoming Encounters Date Type Specialty Care Team Description 11/15/2022 Virtual Visit Pharm Haylie Gnozalez, [facility] [address] [facility] [address] [place], [place] [phone] (Wo rk) 11/15/2022 Virtual Visit IM/Peds Yane Barraza MD [address] [facility] [facility] [address] [place], [place] [phone] (Wo rk) 03/03/2023 Virtual Visit Neurology Erlinda Barber MD [address] [facility] [address] [place], [place] [phone] (Wo rk) Scheduled Referrals Name Type Priority Associated Diagnoses Order S chedule BARIATRIC ADULT REFERRAL Referral Routine Morbid obesity ( H) Ordered: 12/06/2011 OTOLARYNGOLOGY REFERRAL Referral Routine HL (hearing loss) Ordered: 12/06/2011 documented as of this encounter Procedures Procedure Name Priority Date/Time Associated Diagnosis Comme nts HC SCREENING TEST, PURE Routine 12/06/2011 3:29 PM CDT HL (hea ring loss) TONE, AIR ONLY documented in this encounter Visit Diagnoses Diagnosis Annual physical exam - Primary Routine general medical examination at a health care facility HL (hearing loss) Unspecified hearing loss Morbid obesity (H) Morbid obesity Need for prophylactic vaccination agains t Streptococcus pneumoniae (pneumococcus) Need for prophylactic vaccination agains t streptococcus pneumoniae (pneumococcus) Visit for screening mammogram Other screening mammogram Vitamin D deficiencies Unspecified vitamin D deficiency documented in this encounter Care Teams Social Media Job Titles Relationship Specialty Start Date End Date Lucero Knox MD PCP - General Pediatrics 10/11/11 04/22/19 documented as of this encounter
--- OUTSIDE RECORDS SUMMARY | 2022-06-15 13:25 | XMS_ITS | Encounter Summary ---
:1945 Author Organization [place] Address [address] [place] [address] Care Team Providers Name Role Phone Lucero Stevenson MD Primary Care Provider [phone] Reason for Visit Reason Onset Date Comments Refill Request 11/29/2011 dyazide, atenolol, c ozaar Encounter Details Date Type Department Care Team Description 11/29/2011 Refill [facility] an Lucero Stevenson Refill Request [address] [facility] MD Annetta (dyazide, atenolol, [place] [address] [facility]) [phone] [address] [place], [place] [address] (Wo rk) Social History Tobacco Use [...] encounter Miscellaneous Notes Telephone Encounter - Gabbie Rosario - 11/29/2011 8:52 AM CDT Atenolol and Cozaar approved per standing order. Will refill the Dyazide x 1 no refill's due to needing electrolytes rechecked. Patient does have upcoming lab only appointment 12/03/11, lab orders are futured. Gabbie Rosario RN [employer] Last Office Visit R/T Diagnosis: 10/06/11 Provider Notes: Recheck x No specific plan noted BP Readings from Last 3 Encounters: 10/06/11 130/80 07/25/11 144/71 06/28/11 118/80 Potassium Date Value Range Status 05/31/2011 4.1 3.4-5.3 (mmol/L) Final ] Creatinine Date Value Range Status 05/31/2011 0.77 0.52-1.04 (mg/dL) Final COZAAR OV AND REFILLS Q 12 MTHS IF BP <140/90 OV AND REFILLS Q 6 MTHS IF BP >140/90 DM <140/90 Vascular Disease: <130/80 Tests: Annual K+and Creatinine If BP reviewed and plan is noted, can refill. Recheck BP and labs in 1-2 mths after dosage change If BP is still elevated and labs are abnormal, forward to provider. May substitute via therapeutic comparison chart: ANGIOTENSIN CONVERTING ENZYME INHIBITORS (LONA-1) ATENOLOL OV AND REFILLS Q 12 MTHS IF BP <140/90 OV AND REFILLS Q 6 MTHS IF BP >140/90 DM <140/90 Vascular Disease: <130/80 If BP reviewed and plan is noted, can refill. Recheck BP and labs in 1-2 mths after dosage change If BP is still elevated and labs are abnormal, forward to provider DYAZIDE OV AND REFILLS Q 6 MTHS Tests: Every 6 mths: K+ or electrolytes, Creatinine BP <140/90 DM <140/90 Vascular Disease: < 130-80 If BP reviewed and plan is noted, can refill. Recheck BP and labs in 1-2 mths after dosage change If BP is still elevated and labs are abnormal, forward to provider. documented in this encounter Plan of Treatment Upcoming Encounters Date Type Specialty Care Team Description 11/15/2022 Virtual Visit Pharm Haylie Gonzalez, [facility] [address] [facility] [place], [place] [phone] (Wo rk) 11/15/2022 Virtual Visit IM/Peds Yane Barraza MD [address] [facility] [address] [place] [phone] (Wo rk) 03/03/2023 Virtual Visit Neurology Erlinda Barber MD [address] [facility] [address] [place], [place] [phone] (Wo rk) documented as of this encounter Visit Diagnoses Diagnosis Essential hypertension, benign - Primary documented in this encounter Care Teams Medicaid Plan Compliance Director Relationship Specialty Start Date End Date Lucero Stevenson MD PCP - General Pediatrics 10/11/11 04/22/19 documented as of this encounter
--- OUTSIDE RECORDS SUMMARY | 2022-06-15 13:25 | XMS_ITS | Encounter Summary ---
:1945 Author Organization [place] Address [facility] [place] [address] Care Team Providers Name Role Phone Mari Esparza MD Primary Care Provider Lucero Stevenson MD Primary Care Provider [phone] Ady Ramos MD Unavailable Chastity Montero MD Unavailable [phone] Encounter Details Date Type Department Care Team Description 06/01/2011 Historic Results [facility] Unknown, [facility] [address] [place] [address] Social History Tobacco Use Types Packs/Day Years [...] Cheung, [facility] [address] [facility] [place] [address] (Wo rk) 11/15/2022 Virtual Visit IM/Peds Yane Barraza MD [address] [facility] [place] [address] (Wo rk) 03/03/2023 Virtual Visit Neurology Erlinda Barber MD [address] [facility] [address] [place] [address] (Wo rk) documented as of this encounter Procedures Procedure Name Priority Date/Time Associated Diagnosis Comme nts NUCLEAR CARDIAC - HIM 06/01/2011 12:00 AM WATER JET OPERATOR SCAN - ARCHIVE documented in this encounter Results NUCLEAR CARDIAC - HIM SCAN - ARCHIVE (06/01/2011 12:00 AM WATER JET OPERATOR) Anatomical Region Laterality Modality Other Specimen (Source) Anatomical Location Collection Method / Collectio n Time Received Time / Laterality Volume 06/01/2011 Narrative This result has an attachment that is no t available. Provider Scan IMG NM ORDERABLES documented in this encounter Visit Diagnoses Not on filedocumented in this encounter Care Teams Diesel Machinist Relationship Specialty Start Date End Date Mari Esparza MD PCP - General 10/05/10 10/10/11 AYLA HUTCHINSON [address] [place] [address] [address] [place] [phone] Lucero Stevenson MD PCP - General Pediatrics 10/11/11 04/22/19 Ady Ramos MD MD Neurological Surgery 11/25/13 06/09/[address] [place] [address] Chastity Montero MD MD Dermatology 09/23/14 [address] [place] [address] [address] documented as of this encounter
--- OUTSIDE RECORDS SUMMARY | 2022-06-15 13:25 | XMS_ITS | Encounter Summary ---
:1945 Author Organization [facility] Address [address] [place] [address] Care Team Providers Name Role Phone Lucero Stevneson MD Primary Care Provider Reason for Visit Reason Comments Anticoagulation Encounter Details Date Type Department Care Team Description 11/15/2011 [facility] Eag an Anticoagulation Visit [address] [facility] [place] [address] Social History Tobacco [...] this encounter Progress Notes Prudence Austin - 11/15/2011 4:52 PM CDT ANTICOAGULATION FOLLOW-UP CLINIC VISIT Patient Name: Charlette Brush Date: 11/15/2011 Contact Type: Face to Face SUBJECTIVE: Bleeding [...] Haylie Gonzalez, [facility] [address] [place] [address] (Wo rk) 11/15/2022 Virtual Visit IM/Peds Yane Barraza MD [address] [facility] [address] [place], [place] [phone] (Wo rk) 03/03/2023 Virtual Visit Neurology Erlinda Barber MD 420 [facility] 295 [place], [place] [phone] (Wo rk) documented as of this encounter Procedures Procedure Name Priority Date/Time Associated Diagnosis Comme nts INR POINT OF CARE Routine 11/15/2011 Encounter for long-term Results for this (current) use of procedure a re in the anticoagulants results secti on. documented in this encounter Results (ABNORMAL) INR point of care (11/15/2011) P athologist Signature INR Point of 2.7 (A) 0.86 - [facility] Care 1.14 LAB Lucero Stevenson MD LAB - BLOOD ORDERABLES Performing Organization Address City/State/ZIP Code Phon e Number [facility] documented in this encounter Visit Diagnoses Diagnosis jail (current) use of anticoagulant s - Primary Long-term (current) use of anticoagulant s documented in this encounter Care Teams Account Manager Employee Benefits Relationship Specialty Start Date End Date Lucero Stevenson MD PCP - General Pediatrics 10/11/11 04/22/19 documented as of this encounter
--- OUTSIDE RECORDS SUMMARY | 2022-06-15 13:25 | XMS_ITS | Encounter Summary ---
:1945 Author Organization [facility] Address [address] [place] [address] Care Team Providers Name Role Phone Mari Esparza MD Primary Care Provider Reason for Visit Reason Onset Date Comments Chronic Care Conference Provider Overview 09/13/2011 Encounter Details Date Type Department Care Team Description 09/13/2011 Telephone [facility] Reggie Tom, Chronic Care Conference [address] [facility] Provider Overview [place] [phone] [facility]0 [facility] [phone] [facility] [place] [address] (Wo rk) Social History [...] this encounter Miscellaneous Notes Telephone Encounter - Eliza Agustin - 09/13/2011 4:20 PM CST Pt notified,she will make appt. L EDITOR Telephone Encounter - Reggie Emerson MD - 09/13/2011 10:57 AM CST Chronic Care Coordination Provider Overview (C3PO) Met in consultation for: Hypertension Parameters Addressed: B/P management Recommended follow up: PCP Considerations: Please let pt know she is due for repeat BP check and to establish with new PCP. L EDITOR documented in this encounter Plan of Treatment Upcoming Encounters Date Type Specialty Care Team Description 11/15/2022 Virtual Visit Pharm Haylie Gonzalez, [facility] [address] [facility] [address] [place], [place] [phone] (Wo rk) 11/15/2022 Virtual Visit IM/Yane Mathias MD [address] [facility] [address] [place] [phone] (Wo rk) 03/03/2023 Virtual Visit Neurology Erlinda Barber MD [address] [facility] 295 [place], [place] [address] (Wo rk) documented as of this encounter Visit Diagnoses Not on filedocumented in this encounter Care Teams Harm Reduction Worker Relationship Specialty Start Date End Date Mari Esparza MD PCP - General 10/05/10 10/10/11 AYLA HUTCHINSON [facility] [place] [id number] documented as of this encounter
--- OUTSIDE RECORDS SUMMARY | 2022-06-15 13:25 | XMS_ITS | Encounter Summary ---
:1945 Author Organization [facility] Address [address] [place] [address] Care Team Providers Name Role Phone Mari Esparza MD Primary Care Provider Reason for Visit Reason Comments RECHECK Encounter Details Date Type Department Care Team Description 07/25/2011 Office Visit Dermatology Chastity Montero Dermatitis (Primary 5th Floor, Clinic 5A MD Martha Dx) Roland Zavalateen 420 [facility] 98 516 [facility] 88 [address] [place], [place] [phone] (Work) [phone] Social History Tobacco Use Types Packs/Day Years [...] Sign Reading Time Taken Comments Blood Pressure 144/71 07/25/2011 10:13 AM FIBERGLASSER Pulse 72 07/25/2011 10:13 AM FIBERGLASSER Temperature - - Respiratory Rate - - Oxygen Saturation - - Inhaled Oxygen Concentration - - Weight - - Height - - Body Mass Index - - documented in this encounter Progress Notes Emmett Berg - 07/25/2011 11:45 AM CST SUBJECTIVE: Charlette Brush is a 66 year old female in clinic for follow up regarding a number of issues,including severe atopic dermatitis and bilateral great toe paronychias. We last saw her on 11/29/10 for the the paronychias, a slowly healing lumbar ulcer, stasis dermatitis/lymphedema. She has no complaints today and reports that she has been doing well. The severe atopic dermatitis has been well controlled on Topicort 0.05% gel and hydrocortisone 2.5% ointment as needed for sites of exacerbation. Paronychias and the lumbar ulcer have resolved and have no residual complications. Lymphedema and stasis dermatitis have been well controlled with leg elevations and frequent shoe use. Her severe atopic de rmatitis is notable for the number of substances she has allergic contact reactions to, including most topical antibiotics, antifungals and steroids. OBJECTIVE: BP 144/71 Pulse 72 Charlette is an obese and pleasant female that is alert, cooperative and in no acute distress today. Skin examination included scalp, face, head, trunk, back, bilateral upper and lower extremities. Diffusemild scale without erythema noted on head, face and extremities that are negative for pruritis or discomfort. Lumbar spine notable for two centimeter erythematous patch on the midline in the location of a previously non healing ulcer. There are three erythematous plaques of varying size with scale found on the left upper buttock consistent with previous episodes of atopic dermatitis exacerbations. Bilateral lymphedema of the lower extremities pronounced, negative for tenderness, erythema or ulceratio n. Post inflammatory hyperpigmentation changes noted on right anterior knee and bilateral posterior legs. Exam of the feet found them to be warm, moist, well perfused and negative for nail inflammation, deformity, exudate or bleeding. ASSESSMENT/PLAN: 1. Severe atopic dermatitis well controlled on current regimen. Refills given for Topicort 0.05% geland hydrocortisone 2.5% ointment. No alterations in treatment regimen warranted at this time. 2. Lymphedema and stasis dermatitis of lower extremities improved since last visit. Continue currentregimens, no treatment alterations warranted at this time. 3. Foot paronychia completely resolved. 4. Lumbar ulcer completely resolved. Please have Charlette follow up in clinic 12 months from now or sooner as needed. Emmett Berg, MS3 Patient discussed with and seen by Dr. Montero. .The medical student acted as scribe for this encounter. The encounter documented above was completely performed by myself. Chastity Montero MD RGLASSER documented in this encounter Plan of Treatment Upcoming Encounters Date Type Specialty Care Team Description 11/15/2022 Virtual Visit Pharm Haylie Gonzalez, [facility] [address] [facility] [address] [place], [place] [phone] (Wo rk) 11/15/2022 Virtual Visit IM/Peds Yane Barraza MD [address] [facility] [address] [place], [place] [phone] (Wo rk) 03/03/2023 Virtual Visit Neurology Erlinda Barber MD 420 [facility] 295 [place], [place] [phone] (Wo rk) documented as of this encounter Visit Diagnoses Diagnosis Dermatitis - Primary Contact dermatitis and other eczema, due to unspecified cause documented in this encounter Care Teams Life Insurance Salesperson Relationship Specialty Start Date End Date Mari Esparza MD PCP - General 10/05/10 10/10/11 AYLA HUTCHINSON [address] [place] [address] [place] [phone] documented as of this encounter
--- OUTSIDE RECORDS SUMMARY | 2022-06-15 13:25 | XMS_ITS | Encounter Summary ---
:1945 Author Organization [place] [facility] Address [address] [place] [address] Care Team Providers Name Role Phone Mari Esparza MD Primary Care Provider Reason for Visit Reason Comments Anticoagulation Encounter Details Date Type Department Care Team Description 09/06/2011 Allied Health/[facility]urse [facility] Eag an Anticoagulation Visit 14[address] [facility] [place] [address] Social History [...] - Inhaled Oxygen Concentration - - Weight 179.5 kg (395 lb 11.2 oz) 09/06/2011 9:45 AM LOT ATTENDANT Height - - Body Mass Index 63.39 06/28/2011 9:22 AM LOT ATTENDANT documented in this encounter Progress Notes Ayanna Austin - 09/06/2011 9:47 AM CST ANTICOAGULATION FOLLOW-UP CLINIC VISIT Patient Name: Charlette Brush Date: 09/06/2011 SUBJECTIVE: Bleeding Signs/Symptoms: None Thromboembolic Signs/Symptoms: None Medication Changes: No Dietary Changes: Eating a few more veggies per week. Bacterial/Viral Infection: No Missed Coumadin Doses: None Other Concerns: Pt has had 19# weight loss since 06/28/11. ASSESSMENT/PLAN: See: ANTICOAGULATION QIC flow sheet. Decision was made to keep Coumadin dose the same based on the INR result and additional information gathered. ANTICOAGULATION CLINIC Ayanna Austin RN ATTENDANT documented in this encounter Nursing Notes 09/06/2011 9:30 AM CST >> AYANNA Vogt Sep 06, 2011 11:36 AM Charlette Brush presents for INR Estimated Body mass index is 63.39 kg/(m^2) as calculated from the following: Height as of 06/28/11: 5' 6.25(1.683 m). Weight as of this encounter: 395 lb 11.2 oz(179.488 kg). Ayanna Austin RN documented in this encounter Plan of Treatment Upcoming Encounters Date Type Specialty Care Team Description 11/15/2022 Virtual Visit Pharm Haylie Gonzalez, [facility] [address] [facility] [place] [address] (Lena max) 11/15/2022 Virtual Visit IM/Peds Yane Barraza MD 3305 [facility] [place] [address] (Lnea max) 03/03/2023 Virtual Visit Neurology Erlinda Barber MD 420 [facility] 295 [place], [place] [phone] (Lena max) documented as of this encounter Procedures Procedure Name Priority Date/Time Associated Diagnosis Comme nts INR POINT OF CARE Routine 09/06/2011 Encounter for long-term Results for this (current) use of procedure a re in the anticoagulants results secti on. documented in this encounter Results (ABNORMAL) INR point of care (09/06/2011) P athologist Signature INR Point of 1.9 (A) 0.86 - [facility] Care 1.14 LAB Mari Esparza MD LAB - BLOOD ORDERABLES Performing Organization Address City/State/ZIP Code Phon e Number [facility] documented in this encounter Visit Diagnoses Diagnosis [facility] (current) use of anticoagulant s - Primary Long-term (current) use of anticoagulant s documented in this encounter Care Teams Lockstitch Zipper Setter Relationship Specialty Start Date End Date Mari Esparza MD PCP - General 10/05/10 10/10/11 AYLA HUTCHINSON [facility] [place] [address] documented as of this encounter
--- OUTSIDE RECORDS SUMMARY | 2022-06-15 13:25 | XMS_ITS | Encounter Summary ---
:1945 Author Organization [facility] Address [address] [place] [address] Care Team Providers Name Role Phone Mari Esparza MD Primary Care Provider Reason for Visit Reason Comments Anticoagulation Encounter Details Date Type Department Care Team Description 07/11/2011 [facility] Eag an Anticoagulation Visit 1440 [facility] [...] this encounter Progress Notes Qing Guy - 07/11/2011 9:39 AM CST ANTICOAGULATION FOLLOW-UP CLINIC VISIT Patient Name: Charlette Brush Date: 07/11/2011 SUBJECTIVE: Bleeding Signs/Symptoms: None Thromboembolic Signs/Symptoms: None Medication Changes: No Dietary Changes: No Bacterial/Viral Infection: No Missed Coumadin Doses: None Other Concerns: No ASSESSMENT/PLAN: See: ANTICOAGULATION QIC flow sheet. INR Goal 2.0-3.0 Last Weeks Dose 60 Patient Instructions: same, 10mg MWThSS, 5mg TuF Recheck INR In:6 WEEKS Dosage adjustment made based on physician directed care plan. ANTICOAGULATION CLINIC Qing Guy RN L WOOL MACHINE OPERATOR documented in this encounter Nursing Notes 07/11/2011 9:30 AM CST >> QING GUY Mon Jul 11, 2011 9:53 AM Charlette Brush presents for INR. Estimated Body mass index is 66.35 kg/(m^2) as calculated from the following: Height as of 06/28/11: 5' 6.25(1.683 m). Weight as of 06/28/11: 414 lb 3.2 oz(187.88 kg). Qing Guy RN documented in this encounter Plan of Treatment Upcoming Encounters Date Type Specialty Care Team Description 11/15/2022 Virtual Visit Pharm Haylie Gonzalez, [facility] [address] [facility] [address] (Lena max) 11/15/2022 Virtual Visit IM/Peds Yane Barraza MD [address] [facility] [place] [address] (Lena max) 03/03/2023 Virtual Visit Neurology Erlinda Barber MD 420 [facility] 295 [place], [place] [phone] (Lena max) documented as of this encounter Procedures Procedure Name Priority Date/Time Associated Diagnosis Comme nts INR POINT OF CARE Routine 07/11/2011 Encounter for long-term Results for this (current) use of procedure a re in the anticoagulants results secti on. documented in this encounter Results INR point of care (07/11/2011) P athologist Signature INR Point of 2.0 0.86 - [facility] Care 1.14 LAB Mari Esparza MD LAB - BLOOD ORDERABLES Performing Organization Address City/State/ZIP Code Phon e Number [facility] documented in this encounter Visit Diagnoses Diagnosis correction (current) use of anticoagulant s - Primary Long-term (current) use of anticoagulant s documented in this encounter Care Teams Chassis Driver Relationship Specialty Start Date End Date Mari Esparza MD PCP - General 10/05/10 10/10/11 AYLA HUTCHINSON [address] [facility] [place] [address] documented as of this encounter
--- OUTSIDE RECORDS SUMMARY | 2022-06-15 13:25 | XMS_ITS | Encounter Summary ---
:1945 Author Organization [facility] Address [address] [place] [address] Care Team Providers Name Role Phone Mari Esparza MD Primary Care Provider Reason for Visit Reason Onset Date Comments *_* Health Care Directive *_* 07/07/2011 follow up call Encounter Details Date Type Department Care Team Description 07/07/2011 Telephone [facility] Mari Larsen, *_* Health Care [address] [place] [address] Directive *_* (follow [place] [phone] AYLA COOK up call) [phone] [facility] [place] [address] [address] (Wo rk) [...] this encounter Miscellaneous Notes Telephone Encounter - Tho Dana - 07/07/2011 2:40 PM CST Pt was given advance care materials in 12/02/10 when at an office visit with AF. Follow up call and patient would like to attend a group session. Signed up for group 08/11/11. Will send pt the general letter to have as a reminder. Dana Nettles RN SHER MACHINE documented in this encounter Plan of Treatment Upcoming Encounters Date Type Specialty Care Team Description 11/15/2022 Virtual Visit Pharm Haylie Gonzalez, [facility] [address] [facility] [address] [place] [phone] (Wo rk) 11/15/2022 Virtual Visit IM/Peds Yane Barraza MD [address] [facility] [place] [address] (Wo rk) 03/03/2023 Virtual Visit Neurology Erlinda Barber MD 420 [facility] 295 [place], [place] [phone] (Wo rk) documented as of this encounter Visit Diagnoses Not on filedocumented in this encounter Care Teams Finishing Area Supervisor Relationship Specialty Start Date End Date Mari Esparza MD PCP - General 10/05/10 10/10/11 AYLA HUTCHINSON [address] [place] [address] [place] [id number] documented as of this encounter
--- OUTSIDE RECORDS SUMMARY | 2022-06-15 13:25 | XMS_ITS | Encounter Summary ---
:1945 Author Organization [facility] Address [address] [place] [address]. [place] [address] Care Team Providers Name Role Phone Lucero Stevenson MD Primary Care Provider Encounter Details Date Type Department Care Team Description 12/03/2011 Orders Only [facility] Eag an Pre-diabetes; [email or web address] BENIGN HYPERTENSION; [place] [address] Vitamin D deficiencies [phone] Social History Tobacco Use Types Packs/Day Years [...] encounter Progress Notes Lucero Stevenson MD - 12/06/2011 11:54 PM CDT Quick Note: Addressed at clinic visit documented in this encounter Plan of Treatment Upcoming Encounters Date Type Specialty Care Team Description 11/15/2022 Virtual Visit Pharm Haylie Gonzalez, [facility] [address] [facility] [address] [place], [place] [address] (Wo rk) 11/15/2022 Virtual Visit IM/Peds Yane Barraza MD [address] [facility] [place] [address] (Wo rk) 03/03/2023 Virtual Visit Neurology Erlinda Barber MD [address] [facility] 295 [place] [address] (Wo rk) documented as of this encounter Procedures Procedure Name Priority Date/Time Associated Diagnosis Comme nts VITAMIN D DEFICIENCY Routine 12/03/2011 9:04 Vitamin D Resu lts for this SCREENING AM CDT deficiencies procedure are i n the results section. ALBUMIN RANDOM URINE Routine 12/03/2011 9:04 BENIGN HYPERTENSI ON Results for this QUANTITATIVE AM CDT procedure are i n the results section. HEMOGLOBIN A1C Routine 12/03/2011 9:04 Pre-diabetes Results fo r this AM CDT procedure are i n the results section. COMPREHENSIVE Routine 12/03/2011 9:04 Pre-diabetes Results for this METABOLIC PANEL AM CDT BENIGN HYPERTENSION proce dure are in the results section. documented in this encounter Results Microalbumin quantitative random urine (12/03/2011 9:04 AM CDT) Component Value Ref Test Analysis Performed At [facility] Range Method Time Signature Creatinine 52 mg/dL [facility] Urine [facility] Albumin Urine <5 mg/L [facility] mg/L Urine Microalbumin lowest re portable value has been changed from 2 mg/L to 5 [facility] mg/L due to a methodology change on October. CAMPUS LABS Albumin Urine Unable to 0 - 25 [facility] mg/g Cr calculate mg/g Cr [facility] Specimen Anatomical Collection Method Collection Time Receive d Time (Source) Location / / Volume Laterality Urine specimen 12/03/2011 9:04 AM 012 9:06 (specimen) CDT AM CDT Lucero Stevenson MD LAB - URINE ORDERABLES Performing Organization Address City/[facility]/ZIP Code Phon e Number [facility] [address] [place] [address] [facility] (ABNORMAL) Vitamin D Deficiency (12/03/2011 9:04 AM CDT) athologist Signature 25 [place] Vit D 25 (L) 30 - 75 [facility] total ug/L [facility] Comment: Season, race, dietary intake, and treatm ent affect the concentration of 55-oyyunuq-Rlimwng D. Values may decrea se during winter [...] questions, please contact nighat kath[facility] at [phone]. Specimen Anatomical Collection Method Collection Time Receive d Time (Source) Location / / Volume Laterality Blood specimen 12/03/2011 9:04 AM 012 9:06 (specimen) CDT AM CDT Lucero Stevenson MD LAB - BLOOD ORDERABLES Performing Organization Address City/[facility]/ZIP Code Phon e Number [facility] [address] [place] [address] [facility] Hemoglobin A1c (12/03/2011 9:04 AM CDT) athologist Signature Hemoglobin A1C 5.8 4.3 - 6.0 [facility] LAB Specimen Anatomical Collection Method Collection Time Receive d Time (Source) Location / / Volume Laterality Blood specimen 12/03/2011 9:04 AM 012 9:06 (specimen) CDT AM CDT Lucero Stevenson MD LAB - BLOOD ORDERABLES Performing Organization Address City/[facility]/ZIP Code Phon e Number [facility] [address] [place] [address] [facility] Comprehensive metabolic panel (12/03/2011 9:04 AM CDT) athologist Signature Sodium 138 133 - 144 [facility] mmol/L CLINIC LAB Potassium 4.3 3.4 - 5.3 [facility] mmol/L [facility]INIC LAB Chloride 101 94 - 109 [facility] mmol/L [facility]INIC LAB Carbon Dioxide 24 20 - 32 [facility] mmol/L [facility]INIC LAB Anion Gap 13 6 - 17 [facility] mmol/L [facility]IC LAB Glucose 95 60 - 99 [facility] mg/dL CLINIC LAB Urea Nitrogen 18 7 - 30 [facility] mg/dL CLINIC LAB Creatinine 0.57 0.52 - [facility] 1.04 mg/dL CLINIC LAB GFR Estimate >90 >60 [facility] mL/min/1.7 CLINIC LAB m2 GFR Estimate If >90 >60 [facility] Black mL/min/1.7 CLINIC LAB m2 Calcium 9.2 8.5 - 10.4 [facility] mg/dL [facility] Bilirubin Total 0.6 0.2 - 1.3 [facility] mg/dL [facility] LAB Albumin 3.8 3.3 - 4.9 [facility] g/dL [facility] LAB Comment: Reference range changed on 03/18. Protein Total 7.9 6.8 - 8.8 g/dL [facility] Comment: As of 07, reference range reflects plasma specimen type. Alkaline Phosphatase 113 40 - 150 U/L [facility] ALT 18 0 - 50 U/L [facility] LAB AST 24 0 - 45 U/L [facility] LAB Specimen Anatomical Collection Method Collection Time Receive d Time (Source) Location / / Volume Laterality Blood specimen 12/03/2011 9:04 AM 012 9:06 (specimen) CDT AM CDT Lucero Stevenson MD LAB - BLOOD ORDERABLES Performing Organization Address City/State/ZIP Code Phon e Number [facility] [address] [place] [address] [facility] documented in this encounter Visit Diagnoses Diagnosis Pre-diabetes Other abnormal glucose BENIGN HYPERTENSION Essential hypertension, benign Vitamin D deficiencies Unspecified vitamin D deficiency documented in this encounter Care Teams Records Management Clerk Relationship Specialty Start Date End Date Lucero Stevenson MD PCP - General Pediatrics 10/11/11 04/22/19 documented as of this encounter
--- OUTSIDE RECORDS SUMMARY | 2022-06-15 13:25 | XMS_ITS | Encounter Summary ---
:1945 Author Organization [facility] Address Count includes the [facility]0 [place] [address] Care Team Providers Name Role Phone Mari Esparza MD Primary Care Provider Lucero Stevenson MD Primary Care Provider [phone] Ady Ramos MD Unavailable Chastity Montero MD Unavailable [phone] Encounter Details Date Type Department Care Team Description 06/06/2011 Historic Results [facility] Heart Unknown, [facility] [address] [place] [address] Social History Tobacco Use Types Packs/Day [...] Cheung, [facility] [address] [facility] [place] [address] (Wo rk) 11/15/2022 Virtual Visit IM/Peds Yane Barraza MD [address] [facility] [place] [address] (Wo rk) 03/03/2023 Virtual Visit Neurology Erlinda Barber MD [address] [facility] 295 [place] [address] (Wo rk) documented as of this encounter Procedures Procedure Name Priority Date/Time Associated Diagnosis Comme nts NUCLEAR CARDIAC - HIM 06/06/2011 12:00 AM TOOL AND GAUGE INSPECTOR SCAN - ARCHIVE documented in this encounter Results NUCLEAR CARDIAC - HIM SCAN - ARCHIVE (06/06/2011 12:00 AM TOOL AND GAUGE INSPECTOR) Anatomical Region Laterality Modality Other Specimen (Source) Anatomical Location Collection Method / Collectio n Time Received Time / Laterality Volume 06/06/2011 Narrative This result has an attachment that is no t available. Provider Scan IMG NM ORDERABLES documented in this encounter Visit Diagnoses Not on filedocumented in this encounter Care Teams Electrophysiology Scientist Relationship Specialty Start Date End Date Mari Esparza MD PCP - General 10/05/10 10/10/11 AYLA HUTCHINSON [address] [place] [address] [address] [place] [id number] Lucero Stevenson MD PCP - General Pediatrics 10/11/11 04/22/19 Ady Ramos MD MD Neurological Surgery 11/25/13 06/09/[address] [place] [address] [place] [address] Chastity Montero MD MD Dermatology 09/23/14 [address] [place] [address] [address] documented as of this encounter
--- OUTSIDE RECORDS SUMMARY | 2022-06-15 13:25 | XMS_ITS | Encounter Summary ---
:1945 Author Organization [facility] Address [address] [place] [address] Care Team Providers Name Role Phone Mari Esparza MD Primary Care Provider Reason for Visit Reason Comments Anticoagulation Encounter Details Date Type Department Care Team Description 08/22/2011 Allied Health/Nurse [facility] Eag an Anticoagulation Visit [address] [facility] [place] [address] Social History Tobacco [...] this encounter Progress Notes Qing Guy - 08/22/2011 9:49 AM CST ANTICOAGULATION FOLLOW-UP CLINIC VISIT Patient Name: Charlette Brush Date: 08/22/2011 SUBJECTIVE: Bleeding Signs/Symptoms: Has had some bruising on her breasts following chiropractor visits where she has been lying on her stomach for a back adjustment. Thromboembolic Signs/Symptoms: None Medication Changes: No Dietary Changes: No Bacterial/Viral Infection: No Missed Coumadin Doses: None Other Concerns: No ASSESSMENT/PLAN: See: ANTICOAGULATION QIC flow sheet. INR Goal 2.0-3.0 Last Weeks Dose 60 Patient Instructions: 10mg MTWTSS, 5mg F Recheck INR In: 6 WEEKS Dosage adjustment made based on physician directed care plan. ANTICOAGULATION CLINIC Qing Guy RN M48 M60 ARMOR CREWMAN documented in this encounter Nursing Notes 08/22/2011 9:30 AM CST >> QING GUY Mon Aug 22, 2011 9:59 AM Charlette Velma Brush presents for INR. Estimated Body mass index is 66.35 kg/(m^2) as calculated from the following: Height as of 06/28/11: 5' 6.25(1.683 m). Weight as of 06/28/11: 414 lb 3.2 oz(187.88 kg). Qing Guy RN documented in this encounter Plan of Treatment Upcoming Encounters Date Type Specialty Care Team Description 11/15/2022 Virtual Visit Pharm Haylie Gonzalez, [facility] [address] [place] [address] (Lena max) 11/15/2022 Virtual Visit [place] [address] [place] [address] [place] [phone] (Lena max) 03/03/2023 Virtual Visit Neurology Erlinda Barber MD 420 [facility] 295 [place], [place] [address] (Lena max) documented as of this encounter Procedures Procedure Name Priority Date/Time Associated Diagnosis Comme nts INR POINT OF CARE Routine 08/22/2011 Encounter for long-term Results for this (current) use of procedure a re in the anticoagulants results secti on. documented in this encounter Results (ABNORMAL) INR point of care (08/22/2011) P athologist Signature INR Point of 1.5 (A) 0.86 - [facility] 1.14 LAB Mari Esparza MD LAB - BLOOD ORDERABLES Performing Organization Address City/State/ZIP Code Phon e Number [facility] documented in this encounter Visit Diagnoses Diagnosis termite helper (current) use of anticoagulant s - Primary Long-term (current) use of anticoagulant s documented in this encounter Care Teams Public Health Aides Teacher Relationship Specialty Start Date End Date Mari Esparza MD PCP - General 10/05/10 10/10/11 AYLA HUTCHINSON [address] [place] [address] documented as of this encounter
--- OUTSIDE RECORDS SUMMARY | 2022-06-15 13:25 | XMS_ITS | Encounter Summary ---
:1945 Author Organization [facility] Address [address] [place] [address] Care Team Providers Name Role Phone Mari Esparza MD Primary Care Provider Lucero Stevenson MD Primary Care Provider [phone] Reason for Visit Reason Comments Anticoagulation Encounter Details Date Type Department Care Team Description 10/03/2011 Allied Health/Nurse [facility] Eag an Anticoagulation Visit [address] [facility] [place] [address] Social History Tobacco [...] this encounter Progress Notes Qing Guy - 10/03/2011 10:01 AM CDT ANTICOAGULATION FOLLOW-UP CLINIC VISIT Patient Name: Charlette Brush Date: 10/03/2011 Contact Type: Face to Face SUBJECTIVE: Bleeding Signs/Symptoms: None Thromboembolic Signs/Symptoms: None Medication Changes: No Dietary Changes: No Bacterial/Viral Infection: No Missed Coumadin Doses: None Other Concerns: No ASSESSMENT/PLAN: See: ANTICOAGULATION QIC flow sheet. INR Goal 2.0-3.0 Last Weeks Dose 65 Patient Instructions: same, 10mg MTWTSS, 5mg F Recheck INR In: 6WEEKS Decision was made to keep coumadin dose the same based on the INR result and additional information gathered. [facility] ANTICOAGULATION CLINIC Qing Guy RN documented in this encounter Nursing Notes 10/03/2011 9:45 AM CDT >> QING GUY Mon Oct 03, 2011 10:52 AM Charlette Brush presents in clinic for INR. Estimated Body mass index is 63.39 kg/(m^2) as calculated from the following: Height as of 11: 5' 6.25(1.683 m). Weight as of 09/06/11: 395 lb 11.2 oz(179.488 kg). Qing Guy RN documented in this encounter Plan of Treatment Upcoming Encounters Date Type Specialty Care Team Description 11/15/2022 Virtual Visit Pharm D Haylie Cheung, [facility] [address] [facility] [place] [address] (Lena max) 11/15/2022 Virtual Visit [place] [address] [place] [address] [place] [address] (Lena max) 03/03/2023 Virtual Visit Neurology Erlinda Barber MD [address] [facility] 295 [place], [place] [address] (Lena max) documented as of this encounter Procedures Procedure Name Priority Date/Time Associated Diagnosis Comme nts INR POINT OF CARE Routine 10/03/2011 Encounter for long-term Results for this (current) use of procedure a re in the anticoagulants results secti on. documented in this encounter Results INR point of care (10/03/2011) P athologist Signature INR Point of 2.3 0.86 - [facility] Care 1.14 LAB Mari Esparza MD LAB - BLOOD ORDERABLES Performing Organization Address City/State/ZIP Code Phon e Number [facility] documented in this encounter Visit Diagnoses Diagnosis buttermaker continuous churn (current) use of anticoagulant s - Primary Long-term (current) use of anticoagulant s documented in this encounter Care Teams Evaporator Helper Relationship Specialty Start Date End Date Mari Esparza MD PCP - General 10/05/10 10/10/11 AYLA HUTCHINSON [address] [facility] [place] [address] Lucero Stevenson MD PCP - General Pediatrics 10/11/11 04/22/19 documented as of this encounter
--- OUTSIDE RECORDS SUMMARY | 2022-06-15 13:25 | XMS_ITS | Encounter Summary ---
:1945 Author Organization [facility] Address [address] [place] [address] Care Team Providers Name Role Phone Lucero Stevenson MD Primary Care Provider Reason for Visit Reason Onset Date Comments Erroneous encounter-disregard 12/02/2011 Encounter Details Date Type Department Care Team Description 12/02/2011 Telephone [facility] Lucero Stevenson Erroneous 14[address] [facility] MD Annetta encounter-disregard [place] [address] [facility] [phone] [address] [place], [place] [address] (Wo rk) Social History [...] [facility] [address] [facility] [address] [place], [place] [address] (Wo rk) 11/15/2022 Virtual Visit IM/Peds Yane Barraza MD [address] [facility] [place] [address] (Wo rk) 03/03/2023 Virtual Visit Neurology Erlinda Barber MD 420 [facility] 295 [place] [address] (Wo rk) documented as of this encounter Visit Diagnoses Not on filedocumented in this encounter Care Teams Antisqueak Chalker Relationship Specialty Start Date End Date Lucero Stevenson MD PCP - General Pediatrics 10/11/11 04/22/19 documented as of this encounter
--- OUTSIDE RECORDS SUMMARY | 2022-06-15 13:25 | XMS_ITS | Encounter Summary ---
:1945 Author Organization [facility] Address [address] [place] [address] Care Team Providers Name Role Phone Mari Esparza MD Primary Care Provider Reason for Referral Referral not Required - Closed Specialty Diagnoses / Procedures Referred By Contact Refer red To Contact Diagnoses Obstructive sleep apnea (adult) (pediatric) Lucero Stevenson [facility] [address] [facility] [address] [place] [address] [place] [address] Referral ID Status Reason Start Date Expiration Date Visits Requ ested Visits Authorized [id number] Closed 10/06/2011 04/03/2012 1 1 Referral not Required - Closed Specialty Diagnoses / Procedures Referred By Contact Refer red To Contact Diagnoses Other pulmonary embolism and infarction Lucero Stevenson [facility] MD HEMATOLOGY [facility] [address] [facility] [address] [facility] [address] [place] [address] [place] [address] Phone: [phone] Fax: Referral ID Status Reason Start Date Expiration Date Visits Requ ested Visits Authorized [id number] Closed 10/06/2011 04/03/2012 1 1 Reason for Visit Reason Comments Establish Care BP ck and medications Encounter Details Date Type Department Care Team Description 10/06/2011 Office Visit [facility] Lucero Stevenson EMBOLISM/INFARCT NOS (Primary Dx); Yarelis Littlejohn MD BENIGN HYPERTENSION; [address] [facility] OBSTRUCTIVE SLEEP APNEA, ADULT & PED [place]arelis [place] [address] [address] [facility] [phone] [facility] [place] [address] (Wo rk) Social History Tobacco [...] Sign Reading Time Taken Comments Blood Pressure 130/80 10/06/2011 4:37 PM CDT Pulse 56 10/06/2011 4:37 PM CDT Temperature 36.9 ??C (98.5 ??F) 10/06/2011 4:37 PM CDT Respiratory Rate - - Oxygen Saturation - - Inhaled Oxygen Concentration - - Weight 180.8 kg (398 lb 9 oz) 10/06/2011 4:37 PM CDT Height 168.3 cm (5' 6.25) 10/06/2011 4:37 PM CDT Body Mass Index 63.85 10/06/2011 4:37 PM CDT documented in this encounter Progress Notes Graham, Lucero Annetta, MD - 10/06/2011 5:14 PM CDT Charlette Brush is a 66 year old female who presents to critical access hospital care. 1) htn: doesn't check bp at home. No chest pain, headaches, blurry or double vision. 2) PE: Pt unclear if had multiple clots, on lifetime anticoagulation due to previous history of multiple clots. Has not seen heme onc. Does have history of superficial thrombosis. 3) CEFERINO: Has not been re-evaluated since 2003. Does note more fatigue, interested in re-eval. Past medical and surgical history, family and social history, allegies and meds reviewed and updatedin [place]. Review Of Systems: all systems reviewed and are negative except as above. PE: BP 130/80 Pulse 56 Temp(Src) 98.5 ??F (36.9 ??C) (Oral) Ht 5' 6.25 (1.683 m) Wt 398 lb 9 oz (180.787 kg) BMI 63.85 kg/m2 Estimated Body mass index is 63.85 kg/(m^2) as calculated from the following: Height as of this encounter: 5' 6.25(1.683 m). Weight as of this encounter: 398 lb 9 oz(180.787 kg). GENERAL APPEARANCE: morbidly obese, alert and no distress EYES: conjunctiva clear, pupils equally round and reactive to light HENT: ear canals and TM's normal and nose and mouth without ulcers or lesions NECK: supple, no masses or adenopathy RESP: lungs clear to auscultation - no rales, rhonchi or wheezes CV: regular rate and rhythm, normal S1 S2, no S3 or S4 and no murmur, click or rub ABDOMEN: soft, nontender, no HSM or masses and bowel sounds normal Extrem: no c/c. Chronic lymphedema from obesity, venous stasis changes. ASSESSMENT / PLAN: I spent 40 min with patient over 50% in counseling on issues as detailed below 415.19 PULM EMBOLISM/INFARCT NOS (primary encounter diagnosis) -I would like to review old records to see if there is proof of recurrent PE -had been told needed lifetime coumadin due to weight but I'm not sure that's a good reason if only one PE -will have her see heme onc to discuss options Plan: ONC/HEME ADULT REFERRAL 401.1 BENIGN HYPERTENSION -controlled currently -i encouraged her to get a home bp cuff and monitor at home as well 327.23 OBSTRUCTIVE SLEEP APNEA, ADULT & PED -due for re-eval Plan: SLEEP STUDY REFERRAL documented in this encounter Nursing Notes 10/06/2011 4:30 PM CDT >> BEE MARGARITO Deepali Oct 06, 2011 4:45 PM Patient presents with: Establish Care - BP ck and medications Initial BP 130/80 Pulse 56 Temp(Src) 98.5 ??F (36.9 ??C) (Oral) Ht 5' 6.25 (1.683 m) Wt 398lb 9 oz (180.787 kg) BMI 63.85 kg/m2 Estimated Body mass index is 63.85 kg/(m^2) as calculated from the following: Height as of this encounter: 5' 6.25(1.683 m). Weight as of this encounter: 398 lb 9 oz(180.787 kg).. BP completed using cuff size: X-large Bee Hensley CMA documented in this encounter Plan of Treatment Upcoming Encounters Date Type Specialty Care Team Description 11/15/2022 Virtual Visit Pharm D Haylie Cheung, [facility] [address] [place] [address] (Wo winter) 11/15/2022 Virtual Visit IM/Peds Yane Barraza MD [address] [facility] [place] [phone] (Wo winter) 03/03/2023 Virtual Visit Neurology Erlinda Barber MD [address] [facility] [address] [place] [address] (Wo winter) Scheduled Referrals Name Type Priority Associated Diagnoses Order S chedule SLEEP STUDY REFERRAL Referral Routine OBSTRUCTIVE SLEEP AP DIAZ, Ordered: 10/06/2011 ADULT & PED documented as of this encounter Procedures Procedure Name Priority Date/Time Associated Diagnosis Comme nts ONCOLOGY/HEMATOLOGY ADULT Routine 11/18/2011 PULM EMBOLISM/I NFARCT NOS ELECTRIC VEHICLE ELECTRICIAN REFERRAL documented in this encounter Results ONC/HEME ADULT REFERRAL (11/18/2011) Narrative This result has an attachment that is no t available. Lucero Stevenson MD REFERRAL documented in this encounter Visit Diagnoses Diagnosis PULM EMBOLISM/INFARCT NOS - Primary Other pulmonary embolism and infarction BENIGN HYPERTENSION Essential hypertension, benign OBSTRUCTIVE SLEEP APNEA, ADULT & PED Obstructive sleep apnea (adult) (pediatr ic) documented in this encounter Care Teams Upholstery Handler Relationship Specialty Start Date End Date Mari Esparza MD PCP - General 10/05/10 10/10/11 AYLA HUTCHINSON [address] [facility] [place] [address] documented as of this encounter
--- OUTSIDE RECORDS SUMMARY | 2022-06-15 13:25 | XMS_ITS | Encounter Summary ---
:1945 Author Organization [facility] Address [address] [place] [address] Care Team Providers Name Role Phone Mari Esparza MD Primary Care Provider Reason for Visit Reason Comments *_* Health Care Directive *_* group session Encounter Details Date Type Department Care Team Description 08/11/2011 Office Visit [facility] Eag Advanced directives, [address] counseling/discussion [place] [address] (Primary Dx) [phone] Social History Tobacco Use Types Packs/Day Years [...] documented as of this encounter Progress Notes Dana Ayon - 08/11/2011 4:59 PM CST See nursing notes. O CHECKER AND ASSEMBLER documented in this encounter Nursing Notes 08/11/2011 3:00 PM CST >> DANA AYON [facility] Aug 11, 2011 4:59 PM Advance Directive Initial Visit Charlette Brush presents in person for initial session regarding completion of advanced directive form. She was referred to the mill hand by provider. She currently has no advance directive. Plan: Advanced directive form, healthcare agent information card, advanced care planning informationbooklet provided to patient. Follow up meeting: . Patient instructed to bring healthcare agent to this meeting. This was an informational meeting to discuss the document [employer] Choices. Pt will need to follow up to complete document and have it notarized. Dana Ayon RN documented in this encounter Plan of Treatment Upcoming Encounters Date Type Specialty Care Team Description 11/15/2022 Virtual Visit Pharm Haylie Gonzalez, [facility] [address] [facility] [address] [place] [phone] (Wo rk) 11/15/2022 Virtual Visit IM/Peds Yane Barraza MD [address] [facility] [place] [phone] (Wo rk) 03/03/2023 Virtual Visit Neurology Erlinda Barber MD [address] [facility] [address] [place], [place] [phone] (Wo rk) documented as of this encounter Visit Diagnoses Diagnosis Advanced directives, counseling/discussi on - Primary Other specified counseling documented in this encounter Care Teams Collateral Specialist Relationship Specialty Start Date End Date Mari Esparza MD PCP - General 10/05/10 10/10/11 AYLA HUTCHINSON [address] [place] [address] [place] [phone] documented as of this encounter
--- OUTSIDE RECORDS SUMMARY | 2022-06-15 13:26 | XMS_ITS | Encounter Summary ---
:1945 Author Organization [facility] Address [address] [place] [address] Care Team Providers Name Role Phone Mari Esparza MD Primary Care Provider Encounter Details Date Type Department Care Team Description 11/29/2010 Office Visit-[facility] DEPT Unknown, Provider Social History Tobacco Use Types Packs/Day Years [...] documented as of this encounter Progress Notes Unknown, Provider - 11/29/2010 9:45 AM CDT Inter Com Installer: Eneida Romero Status: Final Encounter: 2010-11-29 09:45:00.000 Type: Rooming Note Reason For Visit CHARLETTE BRUSH (: 1945, ) is a 65 year old female coming to clinic for Paronychia/dermatitis Do you have any other appointments, tests or procedures within the [facility] system for this same day? No. Pain Eval Current history of pain associated with this visit is denied. Personal Hx Behavioral history: No tobacco use. Home environment: No secondhand tobacco smoke in home. Vital Signs Recorded by on 29 Nov 2010 09:37 AM BP:139/69, LUE, Sitting, HR: 73 b/min, L Radial. Allergies Bactroban CREA Bactroban OINT Budesonide POWD Clotrimazole SOLN Keflex CAPS Lanolin OINT Moisturel Lotion Nutraderm Lotion Penicillins. Current Meds Med list offered and patient declined. Coumadin 10 MG Tablet;TAKE 1 TABLET DAILY.; RPT Zyrtec 5 MG TABS;TAKE 2 TABLET DAILY; RPT Cetirizine HCl 5 MG Tablet;Generic for zyrtec 5 mg/ take one tablet by mouth twice daily; Rx Atenolol 25 MG Tablet;TAKE 1 TABLET TWICE DAILY; RPT AAA-MED RECONCILE;per patient; RPT Hydrocortisone 2.5 % Ointment;APPLY TO LEGS TWICE DAILY; Rx Desoximetasone 0.05 % Gel;APPLY THREE TIMES DAILY NEEDED.; Rx Cozaar 100 MG Tablet;TAKE 1 TABLET DAILY.; RPT Triamterene-HCTZ 37.5-25 MG Capsule;TAKE 1 CAPSULE DAILY.; RPT. Signature Signed By: Eneida Romero CMA; 11/29/2010 9:38 AM STATISTICIAN THEORETICAL. documented in this encounter Plan of Treatment Upcoming Encounters Date Type Specialty Care Team Description 11/15/2022 Virtual Visit Pharm D Haylie Cheung, [facility] [address] [facility] [place] [address] (Lena max) 11/15/2022 Virtual Visit [place] [address] [place] [address] [place] [address] (Lena max) 03/03/2023 Virtual Visit Neurology Erlinda Barber MD 420 [facility] 295 [place] [address] (Wo rk) documented as of this encounter Visit Diagnoses Not on filedocumented in this encounter Care Teams Shoddy Mill Worker Relationship Specialty Start Date End Date Mari Esparza MD PCP - General 10/05/10 10/10/11 AYLA HUTCHINSON [address] [facility] [place] [address] documented as of this encounter
--- OUTSIDE RECORDS SUMMARY | 2022-06-15 13:26 | XMS_ITS | Encounter Summary ---
:1945 Author Organization [facility] Address [address] [place] [address] Care Team Providers Name Role Phone Mari Esparza MD Primary Care Provider Reason for Visit Reason Onset Date Comments Chronic Care Conference Provider Overview 10/07/2010 Encounter Details Date Type Department Care Team Description 10/07/2010 Telephone [facility] Mari Larsen, Chronic Care 14[address] [facility] Conference Provider [place] [address] AYLA COOK Overview [phone] J[place] [place] [address] (Wo rk) Social History Tobacco Use [...] Miscellaneous Notes Telephone Encounter - Prudence Austin - 10/08/2010 8:30 AM CDT Nick. Prasanth Austin RN Telephone Encounter - Qing Guy - 10/07/2010 2:59 PM CDT Patient scheduled for Nurse only BP check same day as next INR check on 11/02/10. Qing Guy RN Telephone Encounter - Mari Esparza - 10/07/2010 2:00 PM CDT BP a little high last visit Will forward this to INR nurses to see if they can check BP when she comes in for INR check up documented in this encounter Plan of Treatment Upcoming Encounters Date Type Specialty Care Team Description 11/15/2022 Virtual Visit Pharm D Haylie Cheung, [facility] [address] [facility] [address] [place] [phone] (Wo rk) 11/15/2022 Virtual Visit IM/Peds Yane Barraza MD [address] [facility] [place] [address] (Wo rk) 03/03/2023 Virtual Visit Neurology Erlinda Barber MD 420 [facility] 295 [place], [place] [address] (Wo rk) documented as of this encounter Visit Diagnoses Not on filedocumented in this encounter Care Teams Die Stamping Press Operator Relationship Specialty Start Date End Date Mari Esparza MD PCP - General 10/05/10 10/10/11 AYLA HUTCHINSON [address] [place] [address] [place] [address] documented as of this encounter
--- OUTSIDE RECORDS SUMMARY | 2022-06-15 13:26 | XMS_ITS | Encounter Summary ---
:1945 Author Organization [place] Address [address] [place] [address] Care Team Providers Name Role Phone Mari Esparza MD Primary Care Provider Reason for Visit Reason Comments Anticoagulation Encounter Details Date Type Department Care Team Description 03/07/2011 Allied Health/[facility] E[place] an Anticoagulation Visit [address] [employer] [...] this encounter Progress Notes Qing Guy - 03/07/2011 8:38 AM CDT ANTICOAGULATION FOLLOW-UP CLINIC VISIT Patient Name: Charlette Brush Date: 03/07/2011 SUBJECTIVE: Bleeding Signs/Symptoms: None Thromboembolic Signs/Symptoms: None Medication Changes: No Dietary Changes: No Bacterial/Viral Infection: No Missed Coumadin Doses: None Other Concerns: No ASSESSMENT/PLAN: Decision was made to keep coumadin dose the same based on the INR result and additional information gathered. See: ANTICOAGULATION QIC flow sheet. ANTICOAGULATION CLINIC Qing Guy RN documented in this encounter Nursing Notes 03/07/2011 8:30 AM CDT >> QING GUY Mon Mar 07, 2011 8:57 AM Charlette Brush presents for INR. Estimated Body mass index is 65.44 kg/(m^2) as calculated from the following: Height as of 12/02/10: 5' 6.25(1.683 m). Weight as of 12/02/10: 408 lb 8 oz(185.294 kg). Qing Guy RN documented in this encounter Plan of Treatment Upcoming Encounters Date Type Specialty Care Team Description 11/15/2022 Virtual Visit Pharm Haylie Gonzalez, [facility] [address] [facility] [place] [address] (Lena max) 11/15/2022 Virtual Visit [place] [address] [place] [address] [place] [address] (Lena max) 03/03/2023 Virtual Visit Neurology Erlinda Barber MD [address] [facility] [address] [place] [address] (Lena max) documented as of this encounter Procedures Procedure Name Priority Date/Time Associated Diagnosis Comme nts INR POINT OF CARE Routine 03/07/2011 Encounter for long-term Results for this (current) use of procedure a re in the anticoagulants results secti on. documented in this encounter Results INR point of care (03/07/2011) P athologist Signature INR Point of 2.8 0.86 - [facility] Care 1.14 LAB Mari Esparza MD LAB - BLOOD ORDERABLES Performing Organization Address City/State/ZIP Code Phon e Number [facility] documented in this encounter Visit Diagnoses Diagnosis detention (current) use of anticoagulant s - Primary Long-term (current) use of anticoagulant s Other pulmonary embolism and infarction Contact dermatitis and other eczema, due to unspecified cause documented in this encounter Care Teams Solar Panel Installation Supervisor Relationship Specialty Start Date End Date Mari Esparza MD PCP - General 10/05/10 10/10/11 AYLA HUTCHINSON [address] [facility] [place] [address] documented as of this encounter
--- OUTSIDE RECORDS SUMMARY | 2022-06-15 13:26 | XMS_ITS | Encounter Summary ---
:1945 Author Organization [facility] Address [address] [place] [address] Care Team Providers Name Role Phone Mari Esparza MD Primary Care Provider Reason for Visit Reason Comments Flu Shot Encounter Details Date Type Department Care Team Description 04/21/2011 Allied Health/[facility]urse [facility] E[place] an Flu Shot Visit 1440 [facility] [place] [address] Social History Tobacco [...] as of this encounter Progress Notes Chastity Neves - 04/21/2011 3:03 PM CDT Injectable Influenza Immunization Documentation Injectable Influenza Immunization Documentation 1. Has the patient received the information for the injectable influenza vaccine? YES 2. Is the patient 6 months of age or older? YES 3. Does the patient have any of the following contraindications? Severe allergy to eggs? No Severe allergic reaction to previous influenza vaccines? No Allergy to contact lens solution/thimerosol/latex? No History of Guillain-[place] syndrome? No Undergoing chemotherapy or radiation therapy? (vaccine should be given at least 2 weeks prior or 3 weeks after) No Currently have moderate or severe illness? No 4. The vaccine has been administered and the patient was instructed to wait 15 minutes before leaving the building in the event of an allergic reaction: YES Vaccination given by Chastity Neves CMA. documented in this encounter Plan of Treatment Upcoming Encounters Date Type Specialty Care Team Description 11/15/2022 Virtual Visit Pharm Haylie Gonzalez, [facility] [address] [facility] [place] [address] (Wo rk) 11/15/2022 Virtual Visit IM/Peds Yane Barraza MD [address] [facility] [place] [address] (Wo rk) 03/03/2023 Virtual Visit Neurology Erlinda Barber MD [address] [facility] 295 [place], [place] [id number] (Wo rk) documented as of this encounter Visit Diagnoses Diagnosis Need for prophylactic vaccination and in oculation against influenza - Primary documented in this encounter Care Teams Forensic Technician Relationship Specialty Start Date End Date Mari Esparza MD PCP - General 10/05/10 10/10/11 AYLA HUTCHINSON [address] [place] [address] [place] [phone] documented as of this encounter
--- OUTSIDE RECORDS SUMMARY | 2022-06-15 13:26 | XMS_ITS | Encounter Summary ---
:1945 Author Organization [place] Address [facility] [place] [address] Care Team Providers Name Role Phone Mari Esparza MD Primary Care Provider Encounter Details Date Type Department Care Team Description 11/29/2010 Orders Only [facility] ([facility] Eag an BENIGN HYPERTENSION; [address] LIPOID METABOL DIS NOS; [place] [id number] Impaired fasting glucose [phone] Social History Tobacco Use Types Packs/Day Years [...] [place], [facility] [address] [facility] [place] [address] (Wo rk) 11/15/2022 Virtual Visit IM/Peds Yane Barraza MD [address] [facility] [place] [address] (Wo rk) 03/03/2023 Virtual Visit Neurology Erlinda Barber MD [address] [facility] [address] [place] [address] (Wo rk) documented as of this encounter Procedures Procedure Name Priority Date/Time Associated Comments Diagnosis VITAMIN D DEFICIENCY Routine 11/29/2010 7:58 AM Impaired fasti ng Results for this SCREENING CDT glucose procedure are i n the results section. LIPID REFLEX TO DIRECT Routine 11/29/2010 7:58 AM BENIGN HYPERTENSION Results for this LDL PANEL CDT LIPOID METABOL DIS procedure are in NOS the results section. HEMOGLOBIN A1C Routine 11/29/2010 7:58 AM Impaired fasting Res ults for this CDT glucose procedure are i n the results section. COMPREHENSIVE Routine 11/29/2010 7:58 AM BENIGN HYPERT ENSION Results for this METABOLIC PANEL CDT LIPOID METABOL DIS proced ure are in NOS the results Impaired fasting section. glucose documented in this encounter Results Hemoglobin A1c (11/29/2010 7:58 AM CDT) athologist Signature Hemoglobin A1C 5.5 4.3 - 6.0 [facility] % CLINIC LAB Specimen Anatomical Collection Method Collection Time Receive d Time (Source) Location / / Volume Laterality Blood specimen 11/29/2010 7:58 AM 011 8:03 (specimen) CDT AM CDT Mari Esparza MD LAB - BLOOD ORDERABLES Performing Organization Address City/State/ZIP Code Phon e Number [facility] [address] [facility] [place] [address] [facility] LAB (ABNORMAL) Comprehensive metabolic panel (11/29/2010 7:58 AM CDT) athologist Signature Sodium 143 133 - 144 [place] mmol/L [facility] LAB Potassium 3.6 3.4 - 5.3 [place] mmol/L [facility] LAB Chloride 106 94 - 109 [place] mmol/L [facility] LAB Carbon Dioxide 27 20 - 32 [place] mmol/L [facility] LAB Anion Gap 10 6 - 17 [place] mmol/L [facility] LAB Glucose 103 (H) 60 - 99 [place] mg/dL [facility] LAB Urea Nitrogen 18 7 - 30 [place] mg/dL [facility] LAB Creatinine 0.95 0.52 - [place] 1.04 mg/dL [facility] LAB GFR Estimate 59 (L) >60 [place] mL/min/1.7 [facility] m2 LAB GFR Estimate If 72 >60 [place] Black mL/min/1.7 [facility] m2 LAB Calcium 9.2 8.5 - 10.4 [place] mg/dL [facility] LAB Bilirubin Total 0.6 0.2 - 1.3 [place] mg/dL [facility] LAB Albumin 3.7 3.3 - 4.9 [place] g/dL [facility] LAB Comment: Reference range changed on 03/18. Protein Total 7.3 6.8 - 8.8 g/dL [facility] LAB Comment: As of 07, reference range reflects plasma specimen type. Alkaline Phosphatase 100 40 - 150 U/L [facility] LAB ALT 15 0 - 50 U/L [facility] CLIN IC LAB AST 25 0 - 45 U/L [facility] CLIN IC LAB Specimen Anatomical Collection Method Collection Time Receive d Time (Source) Location / / Volume Laterality Blood specimen 11/29/2010 7:58 AM 011 8:03 (specimen) CDT AM CDT Mari Esparza MD LAB - BLOOD ORDERABLES Performing Organization Address City/State/ZIP Code Phon e Number [facility] [address] [place] [address] [facility] LAB (ABNORMAL) Vitamin D Deficiency (11/29/2010 7:58 AM CDT) Component Value Ref Test Analysis Performed At [facility] Range Method Time Signature 25 [place] Vit D2 <5 ug/L [facility] 25 [place] Vit D3 14 ug/L [facility] 25 [place] Vit D <19 30 - 75 [facility] total Season, race, dietary intake, and treatm ent affect the concentration of ug/L JENKS 79-giertbn-Eonxhag D. Values may decrease during apolinar er months and increase [facility]AMPUS [facility]S during summer months. Values less than 30 ug/L may indicate Vitamin D deficiency. (L) Specimen Anatomical Collection Method Collection Time Receive d Time (Source) Location / / Volume Laterality Blood specimen 11/29/2010 7:58 AM 011 8:03 (specimen) CDT AM CDT Mari Esparza MD LAB - BLOOD ORDERABLES Performing Organization Address City/[facility]/ZIP Code Phon e Number [facility] [address] [place] [address] [facility] LABS (ABNORMAL) Lipid panel reflex to direct LDL (11/29/2010 7:58 AM CDT) athologist Signature Cholesterol 171 0 - 200 [facility] mg/dL CLINIC LAB Comment: LDL Cholesterol is the primary guide to therapy. The NCEP recommends further evaluation of: patients with cholesterol greater than 200 mg/dL if additional risk facto rs are present, cholesterol greater than 240 mg/dL, triglycerides greater than 1 50 mg/dL, or HDL less than 40 mg/dL. Triglycerides 179 (H) 0 - 150 mg/dL [facility] LAB HDL Cholesterol 38 (L) 50 - 110 mg/dL [facility] LDL Cholesterol Calculated 97 0 - 129 mg/dL [facility] Comment: LDL Cholesterol is the primary guide to therapy: LDL-cholesterol goal in high risk patients is <100 mg/dL and in very high risk patients is <70 mg/dL. VLDL-Cholesterol 36 (H) 0 - 30 mg/dL [facility] LAB Cholesterol/HDL Ratio 4.5 0.0 - 5.0 [facility] LAB Specimen Anatomical Collection Method Collection Time Receive d Time (Source) Location / / Volume Laterality Blood specimen 11/29/2010 7:58 AM 011 8:03 (specimen) CDT AM CDT Mari Esparza MD LAB - BLOOD ORDERABLES Performing Organization Address City/[facility]/ZIP Code Phon e Number [facility] [address] [place] [address] [facility] documented in this encounter Visit Diagnoses Diagnosis BENIGN HYPERTENSION Essential hypertension, benign LIPOID METABOL DIS NOS Unspecified disorder of lipoid metabolis m Impaired fasting glucose documented in this encounter Care Teams Lace Cutter Relationship Specialty Start Date End Date Mari Esparza MD PCP - General 10/05/10 10/10/11 AYLA HUTCHINSON [address] [place] [address] [place] [id number] documented as of this encounter
--- OUTSIDE RECORDS SUMMARY | 2022-06-15 13:26 | XMS_ITS | Encounter Summary ---
:1945 Author Organization [place] Address [address] [place] [address] Care Team Providers Name Role Phone Mari Esparza MD Primary Care Provider Reason for Visit Reason Onset Date Comments Orders 11/25/2010 Encounter Details Date Type Department Care Team Description 11/25/2010 Telephone [facility] Mari Esparza MD Orders [address] [facility] [place] [id number] [address] [place] [phone] [place] [address] (Wo rk) Social History Tobacco Use [...] encounter Miscellaneous Notes Telephone Encounter - Mari Esparza - 11/25/2010 4:56 PM CDT Addended by: MARI ESPARZA on: 11/25/2010 Modules accepted: Orders Telephone Encounter - Maria Spaulding - 11/25/2010 3:43 PM CDT Mari, Please put in future lab orders for Charlette Brush 1945 Maria Mishra documented in this encounter Plan of Treatment Upcoming Encounters Date Type Specialty Care Team Description 11/15/2022 Virtual Visit Pharm D Haylie Cheung, [facility] [address] 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
--- OUTSIDE RECORDS SUMMARY | 2022-06-15 13:26 | XMS_ITS | Encounter Summary ---
:1945 Author Organization [place] Address [address] [place] [address] Care Team Providers Name Role Phone Mari Esparza MD Primary Care Provider Reason for Referral - Closed Specialty Diagnoses / Procedures Referred By Contact Refer red To Contact Diagnoses Other pulmonary embolism and infarction Mari Esparza MD [facility] [address] [place] [address] [place] [address] Referral ID Status Reason Start Date Expiration Date Visits Requ ested Visits Authorized [id number] Closed 01/07/2011 07/06/2011 1 1 Scheduling Instructions ANTICOAGULATION CLINIC COLLABORATIVE PRA CTICE AGREEMENT The following represents a collaborative practice agreement among the physicians of the Clinic and staff of the Anticoagulat ion Clinic Service ([facility]) Physicians shall: 1. Refer patients requiring anticoagulat ion to a specialty service staffed by personnel of Pharmacy Services and super vised by Clinic physicians. 2. Respond to questions and referrals fr pharmacy staff regarding delinquent or difficult patients. 3. Inform the [facility] staff when a new patie [...] for Visit Reason Onset Date Comments Referral 01/07/2011 INR Clinic Encounter Details Date Type Department Care Team Description 01/07/2011 Telephone [facility] Collette Esparza, Mari Sifuentes, Referral (INR Clinic) [address] [facility] [place] [address] AYLA COOK [phone] [facility] [place] [address] (Wo rk) [...] Notes Telephone Encounter - Prudence Austin - 01/07/2011 2:37 PM CDT New insurance (Medicare) interpretation of reimbursement rules require all INR Clinic patients to have a yearly renewal of an INR Clinic referral order. Referral must be signed by the PCP for each patient. Nurses cannot sign these referral orders. Once the order is in and signed by the PCP, a health maintenance alert can be added to track the need for a renewal in subsequent years. Please route this telephone encounter back to the INR pool (p [phone]) when referral completed. Lifetime? Thanks, CHANDLER Stringer and [facility] documented in this encounter Plan of Treatment Upcoming Encounters Date Type Specialty Care Team Description 11/15/2022 Virtual Visit Pharm D Haylie Cheung, [facility] [address] [facility] [address] [place] [phone] (Wo rk) 11/15/2022 Virtual Visit IM/PedYane Muir MD [address] [facility] [address] [place] [phone] (Wo rk) 03/03/2023 Virtual Visit Neurology Erlinda Barber MD [address] [facility] 295 [place], [place] [address] (Wo rk) Scheduled Referrals Name Type Priority Associated Diagnoses Order S chedule INR CLINIC REFERRAL Referral Routine PULM EMBOLISM/INFARCT NOS Ordered: 01/07/2011 documented as of this encounter Visit Diagnoses Diagnosis PULM EMBOLISM/INFARCT NOS - Primary Other pulmonary embolism and infarction documented in this encounter Care Teams Devops Architect Relationship Specialty Start Date End Date Mari Esparza MD PCP - General 10/05/10 10/10/11 AYLA HUTCHINSON [address] [place] [address] [place] [address] documented as of this encounter
--- OUTSIDE RECORDS SUMMARY | 2022-06-15 13:26 | XMS_ITS | Encounter Summary ---
:1945 Author Organization [place] Address [address] [place] [address] Care Team Providers Name Role Phone Mari Esparza MD Primary Care Provider Reason for Visit Reason Comments Anticoagulation Encounter Details Date Type Department Care Team Description 01/24/2011 Allied Health[facility] [place] an Anticoagulation Visit [facility] [facility] [...] this encounter Progress Notes Qing Guy - 01/24/2011 8:41 AM CDT ANTICOAGULATION FOLLOW-UP CLINIC VISIT Patient Name: Charlette Brush Date: 01/24/2011 SUBJECTIVE: Bleeding Signs/Symptoms: None Thromboembolic Signs/Symptoms: None Medication Changes: No Dietary Changes: No Bacterial/Viral Infection: No Missed Coumadin Doses: None Other Concerns: No ASSESSMENT/PLAN: Decision was made to keep coumadin dose the same based on the INR result and additional information gathered. See: ANTICOAGULATION QIC flow sheet. ANTICOAGULATION CLINIC Qing Guy RN documented in this encounter Nursing Notes 01/24/2011 8:30 AM CDT >> QING GUY Mon Jan 24, 2011 9:06 AM Charlette Brush presents for INR. Estimated [...] Gonzalez, [facility] [address] [facility] [place] [address] (Lena max) 11/15/2022 Virtual Visit IM[place] [address] [place] [address] [place] [address] (Lena max) 03/03/2023 Virtual Visit Neurology Erlinda Barber MD [address] [facility] [address] [place] [address] (Lnea max) documented as of this encounter Procedures Procedure Name Priority Date/Time Associated Diagnosis Comme nts INR POINT OF CARE Routine 01/24/2011 Encounter for long-term Results for this (current) use of procedure a re in the anticoagulants results secti on. 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
--- OUTSIDE RECORDS SUMMARY | 2022-06-15 13:26 | XMS_ITS | Encounter Summary ---
:1945 Author Organization [employer] Address [address] [place] [address] Care Team Providers Name Role Phone Mari Esparza MD Primary Care Provider Lucero Stevenson MD Primary Care Provider Ady Ramos MD Unavailable Chastity Montero MD Unavailable [phone] Johnnie Alcocer MD Unavailable Fannie Coleman RN Unavailable Janie Petersen RN Unavailable Unavailable Janie Petersen RN Unavailable Unavailable Janie Petersen RN Unavailable Unavailable Lucero Stevenson MD Unavailable Catalino Carballo FOLLOW UP CLERK FLOOR WORKER TRANSFER BAY Unavailable [phone] Lucero Stevenson MD Unavailable Danni Marcus RN Unavailable Unavailable Kana Doshi ELECTRO MECHANICAL SOLAR TECHNICIAN Unavailable Mtm, Ea Complex Unavailable Unavailable Svetlana Osman [facility] Unavailable Doris Lai MD Primary Care Provider Haylie Cheung [facility] Unavailable [phone] Galdino Valdez MD Unavailable Galdino Valdez MD Primary Care Provider Jaiden Holcomb MD Primary Care Provider [phone] Kendall Joseph MD Unavailable Erlinda Barber MD Unavailable Jaiden Holcomb MD Unavailable [phone] Lucero Stevenson MD Primary Care Provider [phone] Doris Lai MD Primary Care Provider Ruth John MD Unavailable Kajal Huggins MD Unavailable Patience Toussaint NP Unavailable Brook Sánchez MD Unavailable Yane Barraza MD Primary Care Provider Osmar Kidd MD Unavailable Erlinda Barber MD Unavailable Yane Barraza MD Primary Care Provider Lenore Alcala MD Unavailable Haylie Cheung [facility] Unavailable [phone] Gaye Patrick RN Unavailable Unavailable Kenya Abernathy APRN FLOOR WORKER TRANSFER BAY Unavailable [phone] Hayley German OD Unavailable [phone] Haylie Cheung [facility] Unavailable [phone] Reason for Visit Reason Onset Date Comments *_* Living Will *_* 12/02/2010 pt to schedule apt Encounter Details Date Type Department Care Team Description 12/02/2010 Telephone [facility] Mari Beard, *_* Living Will *_* 6[address] Jonnie Oviedo MD (pt to schedule apt) [place] [address] AYLA COOK [phone] JASPER [address] [place] [address] (Wo rk) Social [...] this encounter Miscellaneous Notes Telephone Encounter - Dana Nettles - 09/16/2011 1:04 PM CST Per hospital entry 05/31/11 pt is full code. No advance directive in epic. Dana Nettles RN ICE ORDER TAKER Telephone Encounter - Dana Nettles - 12/02/2010 2:50 PM CDT Talked to pt who will read material from clinic regarding the advanced directive and will then call for an appointment when ready. Dana Nettles RN documented in this encounter Plan of Treatment Upcoming Encounters Date Type Specialty Care Team Description 11/15/2022 Virtual Visit Pharm Haylie Gonzalez, [facility] [address] [place] [address] (Lena max) 11/15/2022 Virtual Visit IM/Peds Yane Barraza MD [address] [facility] [place] [address] (Wo rk) 03/03/2023 Virtual Visit Neurology Erlinda Barber MD [address] [facility] [address] [facility] [address] [place], [place] [address] (Wo rk) documented as of this encounter Visit Diagnoses Not on filedocumented in this encounter Care Teams Consumer Loan Processor Relationship Specialty Start Date End Date Mari Esparza MD PCP - General 10/05/10 10/10/11 AYLA HUTCHINSON [address] [place] [address] [place] [id number] Lucero Stevenson PCP - General Pediatrics 10/11/11 04/22/19 MD Annetta Lucero Stevenson PCP - Assigned PCP 06/17/1809/18 MD Annetta [address] [id number] Catalino Carballo, PCP - Assigned PCP 03/18/18 06/16/18 FOLLOW UP CLERK FLOOR WORKER TRANSFER BAY [address] [place] [address] Doris Lai MD PCP - General Internal Medicine 04/23/19 05/14/[address] [place] [address] [place] [id number] Galdino Valdez MD PCP - General Family Practice 11/29/19 02/12/20 [address] [place], [place] [id number] Jaiden Holcomb PCP - General Internal Medicine 02/13/2010/03 MD Jayesh [address] [facility] [place] [phone] Lucero Stevenson PCP - General 05/15/19 05/23/19 MD TOÑO Littlejohn DORR [address] [place] [address] Doris Lai MD PCP - General 05/24/19 11/28/[address] [facility] [address] [place], [place] [id number] Yane Barraza MD PCP - General Internal Medicine 10/04/21 12/07/21 [address] [facility] [place] [address] Yane Barraza MD PCP - General Internal Medicine 12/08/[address] [place] [address] [address] [place], [place] [phone] Ady Ramos MD MD Neurological Surgery 11/25/13 06/09/[address] [place] [address] Chastity Montero MD Dermatology 09/23/14 [facility] [address] [place] [address] Johnnie Alcocer MD Surgeon General Surgery 03/23/17 [address] [facility] [address] [place] [address] Fannie Coleman RN Clinic Care Primary Care - CC 10/26/17 11/14/17 Coordinator Janie Petersen, CHANDLER Clinic Care Primary Care - CC 11/15/17 11/16/17 Janie Conner, CHANDLER Clinic Care Primary Care - CC 11/17/17 01/15/18 Janie Conner, CHANDLER Clinic Care Primary Care - CC 05/03/18 9 Coordinator Lucero Stevenson Assigned PCP 06/17/18 11/09/19 MD TOÑO Littlejohn [address]OR[address] [place] [address] Danni Marcus, RN Personal Advocate & 01/09/1901/17 Liaison (PAL) Kana Doshi, [facility] Clinic Care Primary Care - CC 03/19/19 05/07/19 Coordinator Fernando, Ea Complex 04/23/19 Svetlana Osman, Pharmacist Pharmacotherapy 04/23/19 [facility] [address] [place], [place] [phone] Haylie Cheung, Pharmacist Pharmacist 09/11/19 [facility] [address] [facility] [address] [place], [place] [phone] Galdino Valdez MD Assigned PCP 11/10/19 05/23/20 [address] [place], [place] [phone] Opal, Assigned Sleep 05/08/20 03/27/21 Kendall Meehan, Provider [address] [place], [place] [address]E [address] [place], [place] [address] Erlinda Barber MD Assigned Neuroscience 05/08/20 01/26/21 [address] [facility] [address] [place] [address] Jaiden Holcomb Assigned PCP 05/24/20 MD Jayesh 909 [place] [address] Ruth John MD Assigned Infectious 01/29/21 07/03/21 [facility] INFECTIOUS Disease Provider [facility] [address] [facility] [address] [place], [place] [phone] Kajal Huggins MD Assigned Neuroscience 01/29/21 10/23/21 [address] [facility] SU[address] Provider [address] [place], [place] [phone] Patience Toussaint NP Assigned Surgical 01/29/21 02/11/22 2945 [facility] Provider [address] [place], [place] [phone] Brook Sánchez MD Assigned Infectious 07/04/21 [address] [facility] SE Disease Provider [place], [place] [address] Osmar Kidd MD Assigned Sleep 09/26/[address] YESS[address] Provider [address] [place] [address] Erlinda Barber MD Assigned Neuroscience 10/24/21 420 [facility] 295 Provider [place], [place] [phone] Lenore Alcala MD Assigned Heart and 12/18/21 01/21/22 [address] Vascular Provider [address] [place] [address] Haylie Cheung, Assigned MTM 01/08/22 [facility] Pharmacist [address] [facility] [place] [phone] Gaye Patrick, RN Personal Advocate & 01/18/22 Liaison (PAL) Kenya Abernathy APRN Assigned Heart and 01/22/22 FLOOR WORKER TRANSFER BAY Vascular Provider [address] [place] [address] Hayley German Assigned Surgical 02/12/22 KENNETH Yan Provider [address] [facility] [place] [phone] Haylie Cheung, Assigned MTM 04/13/22 [facility] Pharmacist [address] [place], [place] [address] documented as of this encounter
--- OUTSIDE RECORDS SUMMARY | 2022-06-15 13:26 | XMS_ITS | Encounter Summary ---
:1945 Author Organization [facility] Address [address] [place] [address] Care Team Providers Name Role Phone Unavailable Primary Care Provider Unavailable Encounter Details Date Type Department Care Team Description 09/20/2010 Office Visit-[facility] Dermatology Chastity Montero 5th Floor, Clinic 5A MD Roland [address] [place] [phone] [place] [address] [place] [address] Social History Tobacco Use Types Packs/Day Years [...] encounter Progress Notes Chastity Montero MD - 09/20/2010 11:15 AM CST Ui Software Developer: Chastity Montero Status: Final - Signature Encounter: 20 Sep 2010 Type: Dermatology Visit Department of Dermatology [place] Mail Code 98 [address] [place] [address] Dermatology Clinic [facility] Fifth Floor, Clinic 5A [address] [place] [address] Appt RE: Charlette Brush : 1945 DIRK: 09/20/2010 OUTPATIENT VISIT NOTE CHIEF COMPLAINT: Followup paronychia. SUBJECTIVE: Miss Brush is a 65-year-old female with a history of severe allergic contact dermatitis, stasis dermatitis, lymphedema, and most recently left great toe paronychia, who presents today for followup. She was last seen roughly 3 weeks prior at which point her main complaint was left toe drainage which was consistent with acute and possible acute on chronic paronychia. Due to her significant allergic chronic dermatitis as well as lymphedema, we are somewhat limited in therapeutic options, but did want to treat fairly aggressively. As such did proceed with a Levaquin 750-mg q. daily dose for 10 days which she tolerated well, without difficulties. We also recommended daily vinegar1:1 soaks. Unfortunately the vinegar soaks amounted to soaking a Q-tip with vinegar and touching it on the nail and then letting it dry, and she did not pursue adequate soaks as far as she admits. She did apply Topicort gel to the toenail x2 which she did find somewhat beneficial and wonders about this in the future. Overall she thinks her toe is much improved from last visit and thinks that a slow improvement which is typical for her has already begun. In regards to patient's allergic contact dermatitis, she reports continued good control with avoidance measures as well as p.r.n. use of Vanicream, hydrocortisone ointment, and Topicort gel. In regardsto her stasis dermatitis, this is relatively unchanged and she continues with regular use of Vanicream and p.r.n. use of topical steroid as above. Her lymphedema is also stable. She also has a slowly healing ulcer on her lumbar region of her lower back midline which is slowly improving with use of Vanicream and Vaseline use. She has no other concerns today and is otherwise feeling well. She denies any recent unexplained weight loss, fevers, chills, nausea, vomiting, headache, or dizziness. PHYSICAL EXAMINATION: General: This is a pleasant morbidly obese female who is alert and oriented, in no acute distress, displaying a Andre skin type I on examination today. Her blood pressure today is 126/67 and her pulse is 68. Skin examination limited to the lower back and left lower extremity shows the following today. The lower back shows a healing 1 cm erythematous superficial erosion with near complete re-epithelialization present. There was no active drainage, foul odor, or telangiectasias present. Examination of the left lower extremity does show chronic lymphedematous changes with hyperpigmentation consistent with stasis dermatitis on the calf and anterior bethea regions. On the leftfoot there is an erythematous very minimally tender slightly edematous tissue present in the paronychial region around the left great toe. There is no active discharge, foul odor, or running erythema. The toenail also is hypertrophic which is consistent with prior. ASSESSMENT/PLAN: 1. Paronychia - left great toe. Greatly improved since last visit and is status post Levaquin. Will recommend that patient alter her vinegar soaks to proper soaking with at least 5 minutes and preferably 10 minutes with 1:1 soaks using gauze or other soaking technique. She should do this once per day for at least the next 2 weeks, and may continue on an intermittent basis for maintenance. She can also add Topicort gel to be used once daily to the paronychial region as well. Healing ulcer lumbar region of her spine. This is healing appropriately and will recommend she continue the Vanicream and Vaseline use as she was doing previously. Severe allergic contact dermatitis. This has greatly improved since seeing her in the past and she is currently tolerating the topical regimen well. She is to continue the Vanicream, hydrocortisone ointment and Topicort gel as per prior visit. Lymphedema. This is stable and patient will continue leg elevations as discussed by other managementteams. She may continue compression stockings when she is able and these will likely be very beneficial if she is able to tolerate them. Stasis dermatitis. Stable at this point and she is to continue current management. The patient will return to office in November 2010 for followup. She is to call office if worsening symptoms or difficulties develop. Chastity Montero M.D. Clinical Operations Manager Department of Dermatology Dictated by Ajith Godoy MD, Resident KB:[email or web address] I saw the patient with the resident. I have reviewed and agree with the resident's note and plan of care. Electronically signed by:Chastity Montero M.D. Sep 23 2010 8:34AM HOTEL SERVICE SUPERVISOR L SERVICE SUPERVISOR documented in this encounter Plan of Treatment Upcoming Encounters Date Type Specialty Care Team Description 11/15/2022 Virtual Visit Pharm D Haylie Cheung, [facility] 14[address] [facility] [place] [address] (Lena max) 11/15/2022 Virtual Visit IM/Peds Yane Barraza MD [address] [facility] [place] [address] (Lena max) 03/03/2023 Virtual Visit Neurology Erlinda Barber MD 420 [facility] 295 [place] [address] (Lena max) documented as of this encounter Visit Diagnoses Not on filedocumented in this encounter
--- OUTSIDE RECORDS SUMMARY | 2022-06-15 13:26 | XMS_ITS | Encounter Summary ---
:1945 Author Organization [facility] Address [address] [place] [address] Care Team Providers Name Role Phone Mari Esparza MD Primary Care Provider Reason for Referral Specialty Diagnoses / Procedures Referred By Contact Refer red To Contact Mari Esparza M D [facility] [address] [place] [address] Referral ID Status Reason Start Date Expiration Date Visits Requ ested Visits Authorized Reason for Visit Reason Comments Physical Pre Visit Planning - Done Encounter Details Date Type Department Care Team Description 12/02/2010 Office Visit [facility] Mari Esparza Routi ne general medical examination at a health care facility (Primary Dx); Yarelis PATEL Screening mammogram; 1440 [facility] AYLA COOK Essential hypertension, josy gn; [place] [address] JASPER Morbid obesity (H) [phone] [place] [address] (Wo rk) Social [...] Sign Reading Time Taken Comments Blood Pressure 128/88 12/02/2010 9:54 AM CDT Pulse 72 12/02/2010 9:54 AM CDT Temperature - - Respiratory Rate - - Oxygen Saturation - - Inhaled Oxygen Concentration - - Weight 185.3 kg (408 lb 8 oz) 12/02/2010 9:54 AM CDT Height 168.3 cm (5' 6.25) 12/02/2010 9:54 AM CDT Body Mass Index 65.44 12/02/2010 9:54 AM CDT documented in this encounter Patient Instructions Patient InstructionsMari Esparza - 12/02/2010 10:33 AM CDT [facility] ([facility]) CAN DO Program Contact & Registration [place] for a free one-hour CAN DO general session. Choose 1:1 Healthy Lifestyle or weight loss coaching sessions. Learn ways to stay focused and make lifestyle changes that will last -- for home, school or work. http://www.fpanetwork.org/PhysiciansClinics/sánchez/index.html Join [facility]' ([facility]) CAN DO Healthy Lifestyle Program in 2009 for only $275. Contact us: By By By E-mail: By Mail: [facility] [address] [place] [address], [address] [place] [address] documented in this encounter Progress Notes Mari Esparza - 11/25/2010 10:29 AM CDT CC: Charlette Brush is an 65 year old woman who presents for preventive health visit. Besides routine health maintenance, she has no other health concerns today . Healthy Habits: Do you get at least three servings of calcium containing foods daily (dairy, green leafy vegetables,etc.)? yes Outside of work or daily activities, how many days per week do you exercise for 30 minutes or longer? 0 Estimated Body mass index is 65.44 kg/(m^2) as calculated from the following: Height as of this encounter: 5' 6.25(1.683 m). Weight as of this encounter: 408 lb 8 oz(185.294 kg). Have you had an eye exam in the past two years? yes Do you see a dentist twice per year? yes Staff Signature Jennifer Alicia LPN PHQ-2 Over the last two weeks- Have you been bothered by little interest or pleasure in doing things? No Over the last two weeks- Have you been feeling down, depressed, or hopeless? No Abuse: Current or Past(Physical, Sexual or Emotional)- No Do you feel safe in your environment - Yes History Substance Use Topics ??? Smoking status: Never Smoker ??? Smokeless tobacco: Not on file ??? Alcohol Use: No The patient does not drink >3 drinks per day nor >7 drinks per week. Reviewed orders with patient. Reviewed health maintenance and updated orders accordingly - Yes Staff Signature Jennifer Alicia LPN History of abnormal Pap smear: No All Histories reviewed and updated in [facility]. ROS: C: NEGATIVE for fever, chills, change in weight I: NEGATIVE for worrisome rashes, moles or lesions E: NEGATIVE for vision changes or irritation ENT: NEGATIVE for ear, mouth and throat problems R: NEGATIVE for significant cough or SOB B: NEGATIVE for masses, tenderness or discharge CV: NEGATIVE for chest pain, palpitations or peripheral edema GI: NEGATIVE for nausea, abdominal pain, heartburn, or change in bowel habits : NEGATIVE for unusual urinary or vaginal symptoms. No vaginal bleeding. M: NEGATIVE for significant arthralgias or myalgia N: NEGATIVE for weakness, dizziness or paresthesias P: NEGATIVE for changes in mood or affect OBJECTIVE: BP 128/88 Pulse 72 Ht 5' 6.25 (1.683 m) Wt 408 lb 8 oz (185.294 kg) BMI 65.44 kg/m2 GENERAL APPEARANCE: healthy, alert and no distress EYES: Eyes [...] gait is age appropriate without ataxia SKIN: chronic changes, sees derm NEURO: Normal strength and tone, sensory exam grossly normal, mentation intact and speech normal PSYCH: mentation appears normal and affect normal/bright COUNSELING: regular exercise weight management healthy diet/nutrition Advanced Planning Obesity Action Plan: Current exercise routine: no regular exercise. Established an exercise regimen with the patient. Diet regimen was discussed. Weight Watchers, TOPS, or similar program and OA ATP III Guidelines ICSI Preventive Guidelines ASSESSMENT/PLAN: V70.0 Routine general medical examination at a health care facility (primary encounter diagnosis) Comment: Plan: HONORING CHOICES REFERRAL V76.12B Screening mammogram Comment: Plan: Mammo Screening digital (bilat), Mammo Screening digital (bilat) 401.1 Essential hypertension, benign Comment: Plan: losartan (COZAAR) 100 MG tablet, triamterene-hydrochlorothiazide (DYAZIDE) 37.5-25 MG per capsule, atenolol (TENORMIN) 25 MG tablet 278.01 Morbid obesity Comment: Plan: Patient Instructions [facility] ([facility]) CAN DO Program Contact & Registration [place] for a free one-hour CAN DO general session. Choose 1:1 Healthy Lifestyle or weight loss coaching sessions. Learn ways to stay focused and make lifestyle changes that will last -- for home, school or work. http://www.fpanetwork.org/PhysiciansClinics/sánchez/index.html Join [facility]' ([facility]) CAN DO Healthy Lifestyle Program in 2009 for only $275. Contact us: By By By E-mail: [email or web address] By Mail: [facility] [address], [address] [place] [address] documented in this encounter Nursing Notes 12/02/2010 10:00 AM CDT >> JENNIFER ALICIA Deepali December 02, 2010 10:08 AM Patient presents with: Physical Pre Visit Planning - Done Initial BP 128/88 Pulse 72 Ht 5' 6.25 (1.683 m) Wt 408 lb 8 oz (185.294 kg) BMI 65.44 kg/f9Mxteqcyka Body mass index is 65.44 kg/(m^2) as calculated from the following: Height as of this encounter: 5' 6.25(1.683 m). Weight as of this encounter: 408 lb 8 oz(185.294 kg).. BP completed using cuff size: X-large documented in this encounter Plan of Treatment Upcoming Encounters Date Type Specialty Care Team Description 11/15/2022 Virtual Visit Pharm Haylie Gonzalez, [facility] [address] [place] [address] (Lena max) 11/15/2022 Virtual Visit [place] [address] [place] [address] [place] [phone] (Lena max) 03/03/2023 Virtual Visit Neurology Erlinda Barber MD 420 [facility] 295 [place], [place] [address] (Lena max) Scheduled Referrals Name Type Priority Associated Diagnoses Order S chedule HONORING CHOICES Referral Routine Routine general medical Ordered: 12/02/2010 REFERRAL examination at a health care facility documented as of this encounter Procedures Procedure Name Priority Date/Time Associated Diagnosis Comme nts MA SCREENING Routine 11/26/2010 8:41 AM Screening mammogram Re sults for this DIGITAL BILATERAL CDT procedure are in the results section. documented in this encounter Results Mammo Screening digital (bilat) (11/26/2010 8:41 AM CDT) Anatomical Region Laterality Modality Breast Bilateral Other Specimen (Source) Anatomical Collection Method Collection Time Re ceived Time Location / / Volume Laterality 11/26/2010 8:41 AM CDT Impressions 11/26/2010 3:38 PM CDT SCREENING MAMMOGRAM BILATERAL, DIGITAL w /CAD - November 26, 2010 BREAST SYMPTOMS: No current breast compl aints. ?? COMPARISON: 01/17/2008, 12/26/2005. ?? PARENCHYMAL PATTERN: Almost entirely fat . COMMENTS: No findings of suspicion for m alignancy. ?? IMPRESSION: BI-RADS 1, NEGATIVE. RECOMMENDATION: Annual screening mammogr aphy. Mari Esparza MD IMG MAMMOGRAPHY ORDERABLES documented in this encounter Visit Diagnoses Diagnosis Routine general medical examination at a health care facility - Primary Screening mammogram Other screening mammogram Essential hypertension, benign Morbid obesity (H) Morbid obesity documented in this encounter Care Teams Jumpbasting Collar Baster Relationship Specialty Start Date End Date Mari Esparza MD PCP - General 10/05/10 10/10/11 AYLA HUTCHINSON [address] [facility] [place] [address] documented as of this encounter
--- OUTSIDE RECORDS SUMMARY | 2022-06-15 13:26 | XMS_ITS | Encounter Summary ---
:1945 Author Organization [place] Address [address] [place] [address] Care Team Providers Name Role Phone Mari Esparaz MD Primary Care Provider Reason for Visit Reason Comments Hypertension Encounter Details Date Type Department Care Team Description 11/02/2010 [facility] Eag an Hypertension Visit 14[facility] [...] Sign Reading Time Taken Comments Blood Pressure 132/70 11/02/2010 9:54 AM CDT Pulse 68 11/02/2010 9:54 AM CDT Temperature - - Respiratory Rate - - Oxygen Saturation - - Inhaled Oxygen Concentration - - Weight - - Height - - Body Mass Index - - documented in this encounter Nursing Notes 11/02/2010 10:00 AM CDT >> ASHWINI Vogt Nov 02, 2010 9:55 AM Charlette Brush is a 65 year old female who comes in today for a Blood Pressure check because of ongoing blood pressure monitoring. (Use extended vital tab for multiple readings and orthostatic) Vitals as recorded, a large cuff was used. Patient is taking medication as prescribed Patient is tolerating medications well. Patient is not monitoring Blood Pressure at home. Current complaints: none Disposition: follow-up as indicated by MD/DANNIELLE and results routed to MD/DANNIELLE Neves CMA. documented in this encounter Plan of Treatment Upcoming Encounters Date Type Specialty Care Team Description 11/15/2022 Virtual Visit Pharm Haylie Gonzalez, [facility] [address] [facility] [address] [place] [phone] (Wo rk) 11/15/2022 Virtual Visit IM/Yane Mathias MD [address] [facility] [address] [place] [phone] (Wo rk) 03/03/2023 Virtual Visit Neurology Erlinda Barber MD 420 [facility] 295 [place], [place] [phone] (Wo rk) documented as of this encounter Visit Diagnoses Diagnosis BENIGN HYPERTENSION - Primary Essential hypertension, benign documented in this encounter Care Teams Counterintelligence Specialist Relationship Specialty Start Date End Date Mari Esparza MD PCP - General 10/05/10 10/10/11 AYLA HUTCHINSON [address] [place] [address] [place] [phone] documented as of this encounter
--- OUTSIDE RECORDS SUMMARY | 2022-06-15 13:26 | XMS_ITS | Encounter Summary ---
:1945 Author Organization [place] Address [address] [place] [address] Care Team Providers Name Role Phone Mari Esparza MD Primary Care Provider Reason for Visit Reason Comments Anticoagulation Encounter Details Date Type Department Care Team Description 11/02/2010 [facility] Eag an Anticoagulation Visit 14[address] [facility] [...] documented as of this encounter Progress Notes Ayanna Austin - 11/02/2010 9:50 AM CDT ANTICOAGULATION FOLLOW-UP CLINIC VISIT Patient Name: Charlette Brush Date: 11/02/2010 SUBJECTIVE: Bleeding Signs/Symptoms: None Thromboembolic Signs/Symptoms: None Medication Changes: No Dietary Changes: No Bacterial/Viral Infection: No Missed Coumadin Doses: None Other Concerns: No ASSESSMENT/PLAN: See: ANTICOAGULATION QIC flow sheet. [facility] Prasanth Austin RN documented in this encounter Nursing Notes 11/02/2010 9:30 AM CDT >> AYANNA Vogt Nov 02, 2010 9:52 AM Charlette Brush presents for INR Estimated Body mass index is 67.68 kg/(m^2) as calculated from the following: Height as of 08/12/10: 5' 6(1.676 m). Weight as of 08/17/10: 419 lb 4.8 oz(190.193 kg). Prasanth Austin RN documented in this encounter Plan of Treatment Upcoming Encounters Date Type Specialty Care Team Description 11/15/2022 Virtual Visit Pharm Haylie Gonzalez, [facility] [address] [place] [address] [place] [phone] (Lena max) 11/15/2022 Virtual Visit [place] [address] [place] [address] [place] [phone] (Lena max) 03/03/2023 Virtual Visit Neurology Erlinda Barber MD 420 [facility] 295 [place] [address] (Lena max) documented as of this encounter Procedures Procedure Name Priority Date/Time Associated Diagnosis Comme nts INR POINT OF CARE Routine 11/02/2010 Encounter for long-term Results for this (current) use of procedure a re in the anticoagulants results secti on. 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
--- OUTSIDE RECORDS SUMMARY | 2022-06-15 13:26 | XMS_ITS | Encounter Summary ---
:1945 Author Organization [facility] Address [address] [place] [address] Care Team Providers Name Role Phone Unavailable Primary Care Provider Unavailable Encounter Details Date Type Department Care Team Description 09/01/2010 Office Visit-[facility] Dermatology Chastity Montero 5th Floor, Clinic 5A MD Roland Thomas[address] [place] [phone] [place] [address] [place] [address] Social History Tobacco Use Types [...] encounter Progress Notes Chastity Montero MD - 09/01/2010 8:45 AM CST Neurology Hospitalist: Chastity Montero Status: Final - Signature Encounter: 01 Sep 2010 Type: Dermatology Visit OUTPATIENT VISIT NOTE HISTORY OF PRESENT ILLNESS: Ms. Brush is a 65-year-old female with severe allergic contact dermatitis, stasis dermatitis, and lymphedema. She comes in today for follow up of these problems, follow up of recent bout of cellulitis and a lesion on her L great toe. She reports that her dermatitis is under good control with Vanicream as her emollient, hydrocortisone 2.5% ointment for small outbreaks, andTopicort 0.05% gel for larger areas. She has not had any recent outbreaks. Admits that her skin is dry during the winter months. She does continues to experience lymphadema and stasis dermatitis. She has not been able to wear her compression stockings due to difficulty getting them on despite their custom fit with problems slipping down. The patient was diagnosed and treated for cellulitis on the small of her back on 08/13/10. She finished a 10 day course of antibiotics and feels that the area has been healing. Would like for us to check on it. Of her L great toe, Ms. Brush has noticed weeping yellow fluid from the nail bed for 2 weeks. This morning, she noticed bleeding from the same site. She denies pain, pruritus at that site. PHYSICAL EXAMINATION: The patient is pleasant, morbidly obese female in no acute distress. Her BP was high at 159/85. She has rhinorrhea and a sore throat at this time due to a cold. Her lower extremities have severe venous stasis changes with lymphedema, xerosis, but no active significant dermatitis.She does not have significant dermatitis on her arms, chest, back or torso. Examination of her back reveals a 2 cm ulcer with a good granulation base, rolled edges and minimal erythema surrounding. Examination of L great toe reveals weeping in the lateral aspect of the nail bed and erythema surrounding. The nail is thickened, discolored and appears to be growing into the side of the toe. The patient r eports this is typical for her toenails. ASSESSMENT/PLAN: 1. Severe allergic contact dermatitis. Improved. She is tolerating her topical regimens well. She isto continue Vanicream, hydrocortisone ointment and Topicort gel. Lymphedema. Stable. Patient will continue to elevate feet. Patient will continue efforts to find compression stokings that are appropriate for her. Stasis dermatitis. Improved. Healing ulcer s/p cellulitis in lower back. Improving. Advised patient to avoid dryness of that areaby applying a small amount of Vaseline to the area. L great toe drainage and erythema consistent with paronychia. Because of the severity of contact dermititis, patient is to avoid topical antibiotics/antifungals. We recommend that she soaks the great toe in Vinegar soaks in a 1:1 solution for 10 days. In addition, because of her recent antibiotic use and concommitant infection of the great toe, there is risk of MRSA. We prescribed Levoquin 750 mg qday for 10 days. We will see the patient in 2 weeks to make sure paronychia is resolving. Allie Fraga MS4 The medical student acted as scribe and the encounter documented above was completely performed by myself. Electronically signed by:Chastity Montero M.D. Sep 07 2010 11:43AM NUTRITION EDUCATOR ITION EDUCATOR documented in this encounter Plan of Treatment Upcoming Encounters Date Type Specialty Care Team Description 11/15/2022 Virtual Visit Pharm D Haylie Cheung, [facility] [address] [facility] [place] [address] (Lena max) 11/15/2022 Virtual Visit IM/Peds Yane Barraza MD [address] [facility] [place] [phone] (Lena max) 03/03/2023 Virtual Visit Neurology Erlinda Barber MD 420 [facility] 295 [place], [place] [phone] (Lena max) documented as of this encounter Visit Diagnoses Not on filedocumented in this encounter
--- OUTSIDE RECORDS SUMMARY | 2022-06-15 13:26 | XMS_ITS | Encounter Summary ---
:1945 Author Organization [facility] Address [address] [place] [address] Care Team Providers Name Role Phone Unavailable Primary Care Provider Unavailable Reason for Visit Reason Comments RECHECK Cellulitis Encounter Details Date Type Department Care Team Description 08/17/2010 Office Visit [facility] Kendall Figueroa Cellulitis (Primary 1440 [facility] ABHISHEK English Dx) [place] [phone] [facility] [phone] [facility] [address] [place] [address] [place] [address] Social History Tobacco Use Types Packs/Day Years [...] Sign Reading Time Taken Comments Blood Pressure 136/90 08/17/2010 9:13 AM TUBE REBUILDER Pulse 69 08/17/2010 9:13 AM TUBE REBUILDER Temperature 36.6 ??C (97.8 ??F) 08/17/2010 9:13 AM TUBE REBUILDER Respiratory Rate - - Oxygen Saturation - - Inhaled Oxygen Concentration - - Weight 190.2 kg (419 lb 4.8 oz) 08/17/2010 9:13 AM TUBE REBUILDER Height - - Body Mass Index 67.68 08/12/2010 10:15 AM TUBE REBUILDER documented in this encounter Progress Notes Kendall Hernandez - 08/17/2010 9:13 AM CST SUBJECTIVE: Charlette Brush is a 65 year old female who presents for injury: Location: Back, f/u on cellulitis Was seen last . See those notes. Patient feels no pain and a repeat INR was 2.7 today. No problems with Doxycycline.Assessment co-worker. Co worker felt it looked better but there were some dark areas. No discharge. ROS: 5-Point Review of Systems Negative-- Except as stated above. EXAM: There were no vitals taken for this visit. General: no distress and morbidly obese. Involved injury area: Lower lumbar vertebrate Description of injury site {EXAM INJURY: 1 cm lesion present. No longer warm or tender. Contact dermatitis is resolved. She has 2 1 mm eschar lesions in the center. These look very superficial.. Neurovascular status: There is not compromise to the distal circulation. Range of motion of the affected area: Not Applicable X-RAY was not done. ASSESSMENT/PLAN: 682.9M Cellulitis (primary encounter diagnosis) Comment: Improved with minimal eschar Plan: DoxyCYCline (VIBRA-TABS) 100 MG tablet Total of 10 days twice daily Vaseline twice daily over wound area. Aggressively wash area twice daily with mild soap and water. Not a candidate for debridement and sees her Skin Care Technician in 12 days. She has multiple allergies and I did not want to chance other topical meds to help the debridement. http://www.google.com/search?hl=en&safe=active&defl=en&q=define:eschar&sa=X&ei=m [email or web address]&[email or web address] REBUILDER documented in this encounter Nursing Notes 08/17/2010 9:15 AM CST >> JUAN ENRIQUE Vogt Aug 17, 2010 9:16 AM Patient presents with: RECHECK - Cellulitis Initial BP 136/90 Pulse 69 Temp(Src) 97.8 ??F (36.6 ??C) (Oral) Wt 419 lb 4.8 oz (190.193 kg) Estimated Body mass index is 67.68 kg/(m^2) as calculated from the following: Height as of 08/12/10: 5' 6(1.676 m). Weight as of this encounter: 419 lb 4.8 oz(190.193 kg).. BP completed using cuff size: X-large MAMMO Q2 YR NO INBASKET MESSAGE due on 01/16/2010 PAP Q 2 YEARS NO INBASKET MESSAGE due on 12/12/2011 DEXA Q3 YR due on 03/09/2012 COLONOSCOPY Q10 YR INBASKET MESSAGE due on 02/12/2014 TETANUS Q10 YR due on 08/27/2014 LIPID MONITORING Q5 YEARS (NO INBASKET) due on 12/08/2014 Juan Gardner OFFSHORING MANAGER documented in this encounter Plan of Treatment Upcoming Encounters Date Type Specialty Care Team Description 11/15/2022 Virtual Visit Pharm D Haylie Cheung, [facility] 1440 [facility] [place] [address] (Wo winter) 11/15/2022 Virtual Visit IM/Peds Yane Barraza MD [address] [facility] [facility] [place] [phone] (Wo winter) 03/03/2023 Virtual Visit Neurology Erlinda Barber MD [address] [place] [facility] 295 [place] [address] (Wo winter) documented as of this encounter Visit Diagnoses Diagnosis Cellulitis - Primary Cellulitis and abscess of unspecified si te documented in this encounter
--- OUTSIDE RECORDS SUMMARY | 2022-06-15 13:26 | XMS_ITS | Encounter Summary ---
:1945 Author Organization [place] Address [facility] [place] [address] Care Team Providers Name Role Phone Mari Esparza MD Primary Care Provider Lucero Stevenson MD Primary Care Provider [phone] Ady Ramos MD Unavailable Chastity Montero MD Unavailable [phone] Encounter Details Date Type Department Care Team Description 06/01/2011 Historic Results [facility] Unknown, [facility] ide[address] [place] [address] Social History Tobacco Use Types Packs/Day [...] [facility] 14[address] [facility] [place] [address] (Wo rk) 11/15/2022 Virtual Visit IM/Peds Yane Barraza MD [address] [facility] [place] [address] (Wo rk) 03/03/2023 Virtual Visit Neurology Erlinda Barber MD 420 [facility] 295 [place] [address] (Wo rk) documented as of this encounter Procedures Procedure Name Priority Date/Time Associated Diagnosis Comme nts NUCLEAR CARDIAC - HIM 06/01/2011 12:00 AM SOFTWARE PROJECT LEAD SCAN - ARCHIVE documented in this encounter Results NUCLEAR CARDIAC - HIM SCAN - ARCHIVE (06/01/2011 12:00 AM SOFTWARE PROJECT LEAD) Anatomical Region Laterality Modality Other Specimen (Source) Anatomical Location Collection Method / Collectio n Time Received Time / Laterality Volume 06/01/2011 Narrative This result has an attachment that is no t available. Provider Scan IMG NM ORDERABLES documented in this encounter Visit Diagnoses Not on filedocumented in this encounter Care Teams Tnt Powder Worker Relationship Specialty Start Date End Date Mari Esparza MD PCP - General 10/05/10 10/10/11 AYLA HUTCHINSON [address] [place] [address] [address] [place] [phone] Lucero Stevenson MD PCP - General Pediatrics 10/11/11 04/22/19 Ady Ramos MD MD Neurological Surgery 11/25/13 06/09/[address] [place] [address] [place] [address] Chastity Montero MD MD Dermatology 09/23/14 [address] [place] [address] [address] documented as of this encounter
--- OUTSIDE RECORDS SUMMARY | 2022-06-15 13:26 | XMS_ITS | Encounter Summary ---
:1945 Author Organization [facility] Address [address] [place] [address] Care Team Providers Name Role Phone Mari Esparza MD Primary Care Provider Reason for Visit Reason Comments Anticoagulation Encounter Details Date Type Department Care Team Description 05/31/2011 Allied [facility] Eag an Anticoagulation Visit 1440 [facility] [...] this encounter Progress Notes Ayanna Austin - 05/31/2011 3:16 PM CST ANTICOAGULATION FOLLOW-UP CLINIC VISIT Patient Name: Charlette Brush Date: 05/31/2011 SUBJECTIVE: Bleeding Signs/Symptoms: None Thromboembolic Signs/Symptoms: None Medication Changes: No Dietary Changes: No Bacterial/Viral Infection: No Missed Coumadin Doses: None Other Concerns: Pt states that she has not been feeling well for the last 2-3 days; she has had intermittent chest pain; mid chest area and radiating up towards neck, pain does not radiate to arm, she also has some pain between shoulder blades. States she has not normally been SOB, but did notice slight SOB in waiting room. Pt states she does not have a Hx of GERD or heart disease; she has not taken any meds for pain; Hx of taking Tylenol prn. Consulted with PCP - Dr Esparza, pt needs to go to ER for further testing and evaluation; OK for pt todrive to ER. Pt agrees with plan and will go to ER now. ASSESSMENT/PLAN: See: ANTICOAGULATION QIC flow sheet. ANTICOAGULATION CLINIC Ayanna Austin RN ECTOR SEMICONDUCTOR WAFER documented in this encounter Nursing Notes 05/31/2011 2:30 PM CST >> AYANNA Vogt May 31, 2011 3:19 PM Charlette Brush presents for INR Estimated Body mass index is 65.44 kg/(m^2) as calculated from the following: Height as of 12/02/10: 5' 6.25(1.683 m). Weight as of 12/02/10: 408 lb 8 oz(185.294 kg). Ayanna Austin RN documented in this encounter Plan of Treatment Upcoming Encounters Date Type Specialty Care Team Description 11/15/2022 Virtual Visit Pharm Haylie Gonzalez, [facility] [address] [place] [address] (Lena max) 11/15/2022 Virtual Visit IM/Peds Yane Barraza MD [address] [facility] [place] [address] (Lena max) 03/03/2023 Virtual Visit Neurology Erlinda Barber MD 420 [facility] [address] [place] [address] (Wo rk) documented as of this encounter Procedures Procedure Name Priority Date/Time Associated Diagnosis Comme nts INR POINT OF CARE Routine 05/31/2011 Encounter for long-term Results for this (current) use of procedure a re in the anticoagulants results secti on. documented in this encounter Results (ABNORMAL) INR point of care (05/31/2011) P athologist Signature INR Point of 2.1 (A) 0.86 - [facility] Care 1.14 LAB Mari Esparza MD LAB - BLOOD ORDERABLES Performing Organization Address City/State/ZIP Code Phon e Number [facility] documented in this encounter Visit Diagnoses Diagnosis assistant terminal manager (current) use of anticoagulant s - Primary Long-term (current) use of anticoagulant s documented in this encounter Care Teams Server Service Assistant Relationship Specialty Start Date End Date Mari Esparza MD PCP - General 10/05/10 10/10/11 AYLA HUTCHINSON [address] [place] [address] documented as of this encounter
--- OUTSIDE RECORDS SUMMARY | 2022-06-15 13:26 | XMS_ITS | Encounter Summary ---
:1945 Author Organization [place] Address [address] [place] [address] Care Team Providers Name Role Phone Mari Esparza MD Primary Care Provider Encounter Details Date Type Department Care Team Description 11/29/2010 Office Visit-[facility] Ryland Montero MD 420 [facility] 98 [place] [address] (Wo rk) Social History Tobacco [...] encounter Progress Notes Chastity Montero MD - 11/29/2010 9:45 AM CDT Dentofacial Orthopedics Dentist: ClausKenya strangeChastity Status: Final - Signature Encounter: 2010-11-29 09:45:00.000 Type: Dermatology Visit documented in this encounter Plan of Treatment Upcoming Encounters Date Type Specialty Care Team Description 11/15/2022 Virtual Visit Pharm D Haylie Cheung, [facility] [address] [facility] [address] [place], [place] [phone] (Wo rk) 11/15/2022 Virtual Visit IM/Peds Yane Barraza MD 3[address] [facility] [place] [phone] (Wo rk) 03/03/2023 Virtual Visit Neurology Erlinda Barber MD 420 [facility] 295 [place], [place] [phone] (Wo rk) documented as of this encounter Visit Diagnoses Not on filedocumented in this encounter Care Teams Manager Branch Relationship Specialty Start Date End Date Mari Esparza MD PCP - General 10/05/10 10/10/11 AYLA HUTCHINSON [address] [facility] [place] [phone] documented as of this encounter
--- OUTSIDE RECORDS SUMMARY | 2022-06-15 13:26 | XMS_ITS | Encounter Summary ---
:1945 Author Organization [facility] Address [address] [place] [address] Care Team Providers Name Role Phone Unavailable Primary Care Provider Unavailable Reason for Visit Reason Comments Anticoagulation Encounter Details Date Type Department Care Team Description 08/17/2010 [facility] Eag an Anticoagulation Visit 1440 [facility] [place] [phone] Social History [...] this encounter Progress Notes Ayanna Austin - 08/17/2010 11:06 AM CST ANTICOAGULATION FOLLOW-UP CLINIC VISIT Patient Name: Charlette Brush Date: 08/17/2010 SUBJECTIVE: Bleeding Signs/Symptoms: None Thromboembolic Signs/Symptoms: None Medication Changes: Pt currently taking Doxycycline for cellulitis on back/waist area; slight improvement. Dietary Changes: No Bacterial/Viral Infection: No Missed Coumadin Doses: None Other Concerns: Appt today with Prasanth Hernandez ASSESSMENT/PLAN: See: ANTICOAGULATION QIC flow sheet. EA ANTICOAGULATION CLINIC Prasanth Austin RN UNTING SUPPORT SPECIALIST documented in this encounter Nursing Notes 08/17/2010 8:15 AM CST >> AYANNA Vogt Aug 17, 2010 11:12 AM Charlette Brush presents for INR Estimated Body mass index is 68.21 kg/(m^2) as calculated from the following: Height as of 08/12/10: 5' 6(1.676 m). Weight as of 08/12/10: 422 lb 9.6 oz(191.69 kg). Prasanth Austin RN documented in this encounter Plan of Treatment Upcoming Encounters Date Type Specialty Care Team Description 11/15/2022 Virtual Visit Pharm Haylie Gonzalez, [facility] [address] [facility] [place] [address] (Lena max) 11/15/2022 Virtual Visit [place] [address] [place] [address] [place] [address] (Lena max) 03/03/2023 Virtual Visit Neurology Erlinda Barber MD 420 [facility] [address] [place] [address] (Lena max) documented as of this encounter Procedures Procedure Name Priority Date/Time Associated Diagnosis Comme nts INR POINT OF CARE Routine 08/17/2010 Encounter for long-term Results for this (current) use of procedure a re in the anticoagulants results secti on. documented in this encounter Results INR point of care (08/17/2010) P athologist Signature INR Point of 2.7 MISYS [facility]ILL[facility] Care LAB Mari Esparza MD LAB - BLOOD ORDERABLES Performing Organization Address City/State/ZIP Code Phon e Number [facility] documented in this encounter Visit Diagnoses Diagnosis long-term (current) use of anticoagulant s - Primary Long-term (current) use of anticoagulant s documented in this encounter
--- OUTSIDE RECORDS SUMMARY | 2022-06-15 13:26 | XMS_ITS | Encounter Summary ---
:1945 Author Organization [facility] Address [address] [place] [address] Care Team Providers Name Role Phone Unavailable Primary Care Provider Unavailable Encounter Details Date Type Department Care Team Description 09/01/2010 Office Visit-[facility] DEPT Unknown, Provider [...] this encounter Progress Notes Unknown, Provider - 09/01/2010 8:45 AM CST Radiology Tech: Eneida Romero Status: Amended, Final Encounter: 01 Sep 2010 Type: Rooming Note Reason For Visit CHARLETTE BRUSH (: 1945, ) is a 65 year old female coming to clinic for dermatitis follow up. Do you have any other appointments, tests or procedures within the [facility] system for this same day? No. Pain Eval Current history of pain associated with this visit is denied. Personal Hx Behavioral history: No tobacco use. Home environment: No secondhand tobacco smoke in home. Vital Signs Recorded by [email or web address] on 01 Sep 2010 08:52 AM BP:159/85, RUE, Sitting, HR: 82 b/min, R Radial. Allergies Bactroban CREA Bactroban OINT Budesonide POWD Clotrimazole SOLN Keflex CAPS Lanolin OINT Moisturel Lotion Nutraderm Lotion Penicillins. Current Meds Cetirizine HCl 5 MG Tablet;Generic for zyrtec 5 mg/ take one tablet by mouth twice daily; Rx AAA-MED RECONCILE;per patient; RPT Hydrocortisone 2.5 % Ointment;APPLY TO LEGS TWICE DAILY; Rx Desoximetasone 0.05 % Gel;APPLY THREE TIMES DAILY NEEDED.; Rx Cozaar 100 MG Tablet;TAKE 1 TABLET DAILY.; RPT Coumadin 10 MG Tablet;TAKE 1 TABLET DAILY.; RPT Zyrtec 5 MG TABS;TAKE 2 TABLET DAILY; RPT Atenolol 25 MG Tablet;TAKE 1 TABLET TWICE DAILY; RPT Triamterene-HCTZ 37.5-25 MG Capsule;TAKE 1 CAPSULE DAILY.; RPT. Med list offered and patient declined. Notes Patient's right great toe dressed with Telfa and Coban per Dr. Montero's request. Patient repeated instructions to soak the toe twice daily in a 50:50 solution of vinegar and water. Patient instructedto schedule her follow up appointment. Patient stated she understood all health information given and agreed to call with further questions or concerns. Amended By: Amelia Ferraro ; 09/01/2010 10:29 AM DIRECTOR OF ALUMNI RELATIONS. Signature Signed By: Eneida Romero CMA; 09/01/2010 8:54 AM DIRECTOR OF ALUMNI RELATIONS. Signed By: Amelia Guerin R.N.; 09/01/2010 10:29 AM DIRECTOR OF ALUMNI RELATIONS. documented in this encounter Plan of Treatment Upcoming Encounters Date Type Specialty Care Team Description 11/15/2022 Virtual Visit Haylie Wakefield, [facility] [address] [facility] [place] [address] (Wo rk) 11/15/2022 Virtual Visit IM/Peds Yane Barraza MD [address] [facility] [place] [address] (Wo rk) 03/03/2023 Virtual Visit Neurology Erlinda Barber MD [address] [facility] 295 [place] [address] (Wo rk) documented as of this encounter Visit Diagnoses Not on filedocumented in this encounter
--- OUTSIDE RECORDS SUMMARY | 2022-06-15 13:26 | XMS_ITS | Encounter Summary ---
:1945 Author Organization [facility] Address [address] [place] [address] Care Team Providers Name Role Phone Mari Esparza MD Primary Care Provider Reason for Visit Reason Onset Date Comments WINDOWS ARCHITECT - INTRODUCTION 01/21/2011 care coordin ation Encounter Details Date Type Department Care Team Description 01/21/2011 Telephone [facility] Mari Esparza, WINDOWS ARCHITECT - [facility] Jonnie Oviedo MD INTRODUCTION (toby Murdockan [place] [id number] AYLA sanon) [phone] JASPER [facility] [place] [place] [address] (Wo rk) Social History Tobacco Use [...] this encounter Miscellaneous Notes Telephone Encounter - Danita Orellana - 01/21/2011 3:15 PM CDT Care Coordination Initial Assessment Referral Source: High Priority Utilization: Patient reports no hospitalizations or ED visits in the last 12 months. Primary MD is Dr. Esparza. She does follow with a handle assembler. Patient aware that she can call clinic 06/02. Disease State: Obesity- patient reports that she hasn't called Can do program as she has been busy. Offered number and she stated she would get the number when she came in on Monday to [facility] to check her INR. 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 Does have f/u for INR on Monday01/24/11. Blood pressure- patient states no concerns with blood pressure. Allergy-patient is on Zyrtec for multiple allergies. Medications: Warfarin-taking 10 mg daily except for Tuesdays and Fridays when she takes 5 mg. She reports INR goal is 2-3 and last time it was 2.5. She is also on Cozaar,Atenolol and Triamterene. She reports that she has a good understanding of her medication and declined any information. Functionality: Patient is independent with adls and iadls. She lives alone. She reports no history of falls and does not use any DME. Patient drives. 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 She is planning to get a computer. Acuity: 1 Plan: Patient will ask for Can Do program number on Wednesday 01/24 when she comes in for her INR. Patient does not have any active needs at this time for care coordination. documented in this encounter Plan of Treatment Upcoming Encounters Date Type Specialty Care Team Description 11/15/2022 Virtual Visit Pharm Haylie Gonzalez, [facility] [address] [facility] [place] [address] (Lena max) 11/15/2022 Virtual Visit IM/Peds Yane Barraza MD [address] [facility] [place] [address] (Wo rk) 03/03/2023 Virtual Visit Neurology Erlinda Barber MD [address] [address] [facility] [address] [place] [address] (Wo rk) documented as of this encounter Visit Diagnoses Not on filedocumented in this encounter Care Teams Patternmaker Plastics Relationship Specialty Start Date End Date Mari Esparza MD PCP - General 10/05/10 10/10/11 AYLA HUTCHINSON [address] [place] [address] [place] [address] documented as of this encounter
--- OUTSIDE RECORDS SUMMARY | 2022-06-15 13:26 | XMS_ITS | Encounter Summary ---
:1945 Author Organization [facility] Address [address] [place] [address] Care Team Providers Name Role Phone Unavailable Primary Care Provider Unavailable Reason for Visit Reason Comments Anticoagulation Encounter Details Date Type Department Care Team Description 09/20/2010 Allied Health/Nurse [facility] Eag an Anticoagulation Visit [address] [place] [...] this encounter Progress Notes Qing Guy - 09/20/2010 8:23 AM CST ANTICOAGULATION FOLLOW-UP CLINIC VISIT Patient Name: Charlette Brush Date: 09/20/2010 SUBJECTIVE: Bleeding Signs/Symptoms: None Thromboembolic Signs/Symptoms: None Medication Changes: No Dietary Changes: No Bacterial/Viral Infection: Infection of area on her back and left great toe. Is seeing Dr. Montero (derm specialist at the ) Missed Coumadin Doses: None Other Concerns: No ASSESSMENT/PLAN: See: ANTICOAGULATION QIC flow sheet. ANTICOAGULATION CLINIC Qing Guy RN ARY AID documented in this encounter Nursing Notes 09/20/2010 8:00 AM CST >> QING GUY Mon Sep 20, 2010 8:49 AM Charlette Velma Brush presents for INR. Estimated Body mass index is 67.68 kg/(m^2) as calculated from the following: Height as of 08/12/10: 5' 6(1.676 m). Weight as of 08/17/10: 419 lb 4.8 oz(190.193 kg). Qing Guy RN documented in this encounter Plan of Treatment Upcoming Encounters Date Type Specialty Care Team Description 11/15/2022 Virtual Visit Pharm Haylie Gonzalez, [facility] [address] [facility] [place] [address] (Wo rk) 11/15/2022 Virtual Visit IM[place] [address] [place] [address] [place] [phone] (Wo rk) 03/03/2023 Virtual Visit Neurology Erlinda Barber MD [address] [facility] 295 [place], [place] [id number] (Wo rk) documented as of this encounter Procedures Procedure Name Priority Date/Time Associated Diagnosis Comme nts INR POINT OF CARE Routine 09/20/2010 Encounter for long-term Results for this (current) use of procedure a re in the anticoagulants results secti on. documented in this encounter Results INR point of care (09/20/2010) P athologist Signature INR Point of 2.2 [facility] Care LAB Mari Esparza MD LAB - BLOOD ORDERABLES Performing Organization Address City/State/ZIP Code Phon e Number [facility] documented in this encounter Visit Diagnoses Diagnosis ferry terminal agent (current) use of anticoagulant s - Primary Long-term (current) use of anticoagulant s documented in this encounter
--- OUTSIDE RECORDS SUMMARY | 2022-06-15 13:26 | XMS_ITS | Encounter Summary ---
:1945 Author Organization [facility] Address [address] [place] [address] Care Team Providers Name Role Phone Mari Esparza MD Primary Care Provider Reason for Visit Reason Comments Anticoagulation Encounter Details Date Type Department Care Team Description 12/14/2010 Allied Health/[facility] Eag an Anticoagulation Visit [address] [facility] [...] this encounter Progress Notes Ayanna Austin - 12/14/2010 8:42 AM CDT ANTICOAGULATION FOLLOW-UP CLINIC VISIT Patient Name: Charlette Brush Date: 12/14/2010 SUBJECTIVE: Bleeding Signs/Symptoms: None Thromboembolic Signs/Symptoms: None Medication Changes: No Dietary Changes: No Bacterial/Viral Infection: No Missed Coumadin Doses: None Other Concerns: No Decision was made to keep coumadin dose the same based on the INR result and additional information gathered. ASSESSMENT/PLAN: See: ANTICOAGULATION QIC flow sheet. ANTICOAGULATION CLINIC Prasanth Austin RN documented in this encounter Nursing Notes 12/14/2010 8:30 AM CDT >> AYANNA Vogt December 14, 2010 8:44 AM Charlette Brush presents for INR Estimated Body mass index is 65.44 kg/(m^2) as calculated from the following: Height as of 12/02/10: 5' 6.25(1.683 m). Weight as of 12/02/10: 408 lb 8 oz(185.294 kg). Prasanth Austin RN documented in this encounter Plan of Treatment Upcoming Encounters Date Type Specialty Care Team Description 11/15/2022 Virtual Visit Pharm D Haylie Cheung, [facility] [address] [place] [address] (Lena max) 11/15/2022 Virtual [place] [address] [place] [address] [address] [place] [phone] (Lena max) 03/03/2023 Virtual Visit Neurology Erlinda Barber MD [address] [facility] 295 [place] [address] (Lena max) documented as of this encounter Procedures Procedure Name Priority Date/Time Associated Diagnosis Comme nts INR POINT OF CARE Routine 12/14/2010 Encounter for long-term Results for this (current) use of procedure a re in the anticoagulants results secti on. documented in this encounter Results (ABNORMAL) INR point of care (12/14/2010) P athologist Signature INR Point of 2.5 (A) 0.86 - [facility] Care 1.14 LAB Mari Esparza MD LAB - BLOOD ORDERABLES Performing Organization Address City/State/ZIP Code Phon e Number [facility] documented in this encounter Visit Diagnoses Diagnosis assisted (current) use of anticoagulant s - Primary Long-term (current) use of anticoagulant s documented in this encounter Care Teams Staff Interpreter Relationship Specialty Start Date End Date Mari Esparza MD PCP - General 10/05/10 10/10/11 AYLA HUTCHINSON [address] [place] [address] [place] [id number] documented as of this encounter
--- OUTSIDE RECORDS SUMMARY | 2022-06-15 13:26 | XMS_ITS | Encounter Summary ---
:1945 Author Organization [facility] Address [address] [place] [address] Care Team Providers Name Role Phone Unavailable Primary Care Provider Unavailable Encounter Details Date Type Department Care Team Description 09/20/2010 Office Visit-[facility] INTER[facility] DEPT Provider, Ump Nurs e Social History Tobacco Use Types Packs/Day Years [...] documented as of this encounter Progress Notes Provider, [place] Nurse - 09/20/2010 11:15 AM CST Pole Climber: Amelia Guerin Status: Amended, Final Encounter: 20 Sep 2010 Type: Rooming Note Reason For Visit CHARLETTE BRUSH (: 1945, ) is a 65 year old female coming to clinic for followup paronychia left great toe and dermatitis. Do you have any other appointments, tests or procedures within the [facility] system for this same day? No. Pain Eval Current history of pain associated with this visit is denied. Personal Hx Behavioral history: No tobacco use. Home environment: No secondhand tobacco smoke in home. Vital Signs Recorded by Amelia Gurein on 20 Sep 2010 11:24 AM BP:126/67, RUE, Sitting, HR: 68 b/min, R Radial, Height: 67 in. Allergies Bactroban CREA Bactroban OINT Budesonide POWD Clotrimazole SOLN Keflex CAPS Lanolin OINT Moisturel Lotion Nutraderm Lotion Penicillins. Current Meds Triamterene-HCTZ 37.5-25 MG Capsule;TAKE 1 CAPSULE DAILY.; RPT Atenolol 25 MG Tablet;TAKE 1 TABLET TWICE DAILY; RPT Zyrtec 5 MG TABS;TAKE 2 TABLET DAILY; RPT Coumadin 10 MG Tablet;TAKE 1 TABLET DAILY.; RPT Cozaar 100 MG Tablet;TAKE 1 TABLET DAILY.; RPT Desoximetasone 0.05 % Gel;APPLY THREE TIMES DAILY NEEDED.; Rx Hydrocortisone 2.5 % Ointment;APPLY TO LEGS TWICE DAILY; Rx Cetirizine HCl 5 MG Tablet;Generic for zyrtec 5 mg/ take one tablet by mouth twice daily; Rx Levaquin 750 MG Tablet;TAKE 1 TABLET DAILY FOR 10 DAYS.; Rx AAA-MED RECONCILE;per patient; RPT. Med list offered and patient declined. Notes Patient given instructions regarding scheduling next clinic visit. She verbalized concern about switching insurance. Advised her to call the number on the back of her new card to learn of coverage before her next appointment. Patient demonstrated understanding of this information and agreed to call with further questions or concerns. Amended By: Amelia Guerin ; 09/20/2010 5:15 PM PUMPER GAGER APPRENTICE. Signature Signed By: Amelia Guerin R.N.; 09/20/2010 11:27 AM PUMPER GAGER APPRENTICE. Signed By: Amelia Guerin R.N.; 09/20/2010 5:15 PM PUMPER GAGER APPRENTICE. documented in this encounter Plan of Treatment Upcoming Encounters Date Type Specialty Care Team Description 11/15/2022 Virtual Visit Haylie Wakefield, [facility] [address] [facility] [place] [address] (Wo rk) 11/15/2022 Virtual Visit IM/Peds Yane Barraza MD [address] [facility] [place] [address] (Wo rk) 03/03/2023 Virtual Visit Neurology Erlinda Barber MD [address] [facility] [address] [place] [address] (Wo rk) documented as of this encounter Visit Diagnoses Not on filedocumented in this encounter
--- OUTSIDE RECORDS SUMMARY | 2022-06-15 13:26 | XMS_ITS | Encounter Summary ---
:1945 Author Organization [facility] Address [address] [place] [address] Care Team Providers Name Role Phone Mari Esparza MD Primary Care Provider Reason for Visit Reason Comments Anticoagulation Encounter Details Date Type Department Care Team Description 04/21/2011 Allied Health/Nurse [facility] Eag an Anticoagulation Visit 1440 M [...] this encounter Progress Notes Qing Guy - 04/21/2011 2:45 PM CDT ANTICOAGULATION FOLLOW-UP CLINIC VISIT Patient Name: Charlette Brush Date: 04/21/2011 SUBJECTIVE: Bleeding Signs/Symptoms: None Thromboembolic Signs/Symptoms: None Medication Changes: No Dietary Changes: No Bacterial/Viral Infection: No Missed Coumadin Doses: None Other Concerns: Requested a flu shot. See Nurse Only schedule. ASSESSMENT/PLAN: Decision was made to keep coumadin dose the same based on the INR result and additional information gathered. See: ANTICOAGULATION QIC flow sheet. ANTICOAGULATION CLINIC Qing Guy RN documented in this encounter Nursing Notes 04/21/2011 2:30 PM CDT >> QING GUY [facility] Apr 21, 2011 2:46 PM Charlette Brush presents for INR. Estimated Body mass index is 65.44 kg/(m^2) as calculated from the following: Height as of 12/02/10: 5' 6.25(1.683 m). Weight as of 12/02/10: 408 lb 8 oz(185.294 kg). Qing Guy RN documented in this encounter Plan of Treatment Upcoming Encounters Date Type Specialty Care Team Description 11/15/2022 Virtual Visit Pharm D Haylie Cheung, [facility] [address] [facility] [place] [address] (Lena max) 11/15/2022 Virtual Visit IM/Peds Yane Barraza MD [address] [facility] [place] [phone] (Lena max) 03/03/2023 Virtual Visit Neurology Erlinda Barber MD 420 [facility] [address] [place] [address] (Lena max) documented as of this encounter Procedures Procedure Name Priority Date/Time Associated Diagnosis Comme nts INR POINT OF CARE Routine 04/21/2011 Encounter for long-term Results for this (current) use of procedure a re in the anticoagulants results secti on. documented in this encounter Results INR point of care (04/21/2011) P athologist Signature INR Point of 2.6 0.86 - [facility] Care 1.14 LAB Mari Esparza MD LAB - BLOOD ORDERABLES Performing Organization Address City/State/ZIP Code Phon e Number [facility] documented in this encounter Visit Diagnoses Diagnosis senior living (current) use of anticoagulant s - Primary Long-term (current) use of anticoagulant s documented in this encounter Care Teams Midwife Relationship Specialty Start Date End Date Mari Esparza MD PCP - General 10/05/10 10/10/11 AYLA HUTCHINSON [address] [place] [address] [place] [id number] documented as of this encounter
--- OUTSIDE RECORDS SUMMARY | 2022-06-15 13:27 | XMS_ITS | Encounter Summary ---
:1945 Author Organization [facility] Address [address] [place] [address] Care Team Providers Name Role Phone Unavailable Primary Care Provider Unavailable Reason for Visit Reason Onset Date Comments Refill Request 09/25/2009 cozaar Encounter Details Date Type Department Care Team Description 09/25/2009 Refill [facility] Mari Beard MD Refill Request (cozaar) [address] [facility] [place] [phone] [address] [phone] [place] [address] (Wo rk) Social History Tobacco [...] this encounter Miscellaneous Notes Telephone Encounter - Neppl, Dana - 09/25/2009 11:08 AM CST Pt asking for refill on her Cozaar. Last appt was 12/29/08 and lipids were done then also. Will refill per protocol until and pt advised appt with AF and labs needed. Pt made appt for px in 12/2009 and will be in for labs Several days prior to appt. Orders entered. Dana Nettles RN WICH AND DRINK CART OPERATOR documented in this encounter Plan of Treatment Upcoming Encounters Date Type Specialty Care Team Description 11/15/2022 Virtual Visit Pharm D Haylie Cheung, [facility] [address] [facility] [place] [address] (Lena max) 11/15/2022 Virtual Visit IM/Peds Yane Barraza MD [address] [facility] [place] [address] (Lena max) 03/03/2023 Virtual Visit Neurology Erlinda Barber MD 420 [facility] 295 [place] [address] (Lena max) documented as of this encounter Visit Diagnoses Diagnosis Essential hypertension, benign - Primary Morbid obesity (H) Morbid obesity documented in this encounter
--- OUTSIDE RECORDS SUMMARY | 2022-06-15 13:27 | XMS_ITS | Encounter Summary ---
:1945 Author Organization [facility] Address [address] [place] [address] Care Team Providers Name Role Phone Unavailable Primary Care Provider Unavailable Reason for Visit Reason Comments Anticoagulation Encounter Details Date Type Department Care Team Description 11/02/2009 Allied Health/Nurse [facility] Eag an Anticoagulation Visit 14[address] [facility] [place] [phone] Social History Tobacco [...] - Inhaled Oxygen Concentration - - Weight 188 kg (414 lb 6.4 oz) 11/02/2009 8:00 AM CDT Height - - Body Mass Index 64.9 01/08/2009 9:35 AM CDT documented in this encounter Progress Notes Qing Guy - 11/02/2009 8:34 AM CDT ANTICOAGULATION FOLLOW-UP CLINIC VISIT Patient Name: Charlette Brush Date: 11/02/2009 SUBJECTIVE: Bleeding Signs/Symptoms: None Thromboembolic Signs/Symptoms: None Medication Changes: No Dietary Changes: No Bacterial/Viral Infection: No Missed Coumadin Doses: None Other Concerns: No ASSESSMENT/PLAN: See: ANTICOAGULATION QIC flow sheet. [facility] ANTICOAGULATION CLINIC Qing Guy RN documented in this encounter Nursing Notes 11/02/2009 8:00 AM CDT >> QING GUY Mon Nov 02, 2009 8:36 AM Charlette Brush presents for INR. Estimated Body mass index is 64.90 kg/(m^2) as calculated from the following: Height as of 09: 5' 7(1.702 m). Weight as of this encounter: 414 lb 6.4 oz(187.971 kg). Qing Guy RN documented in this encounter Plan of Treatment Upcoming Encounters Date Type Specialty Care Team Description 11/15/2022 Virtual Visit Pharm Haylie Gonzalez, [facility] [address] [place] [address] (Lena max) 11/15/2022 Virtual Visit [place] [address] [place] [address] [place] [phone] (Lena max) 03/03/2023 Virtual Visit Neurology Erlinda Barber MD 420 [facility] [address] [place], [place] [address] (Lena max) documented as of this encounter Procedures Procedure Name Priority Date/Time Associated Diagnosis Comme nts HCL INR POCT Routine 11/02/2009 Encounter for Long-Term Resu lts for this (Current) Use of procedure a re in the Anticoagulants results secti on. documented in this encounter Results INR POINT OF CARE (11/02/2009) P athologist Signature INR Point of 2.8 [facility] Care LAB Mari Esparza MD LABORATORY Performing Organization Address City/State/ZIP Code Phon e Number [facility] documented in this encounter Visit Diagnoses Diagnosis jail (current) use of anticoagulant s - Primary Long-term (current) use of anticoagulant s documented in this encounter
--- OUTSIDE RECORDS SUMMARY | 2022-06-15 13:27 | XMS_ITS | Encounter Summary ---
:1945 Author Organization [facility] Address [address] [place] [address] Care Team Providers Name Role Phone Unavailable Primary Care Provider Unavailable Reason for Visit Reason Comments Flu Shot Encounter Details Date Type Department Care Team Description 04/06/2009 Allied Health/Nurse [facility] Eag an Flu Shot Visit 14[address] [facility] [place] [...] as of this encounter Progress Notes Gabbie Vanessa - 04/06/2009 8:37 AM CDT Injectable Influenza Immunization Documentation 1. Has the patient received the information for the injectable influenza vaccine? YES 2. Is the patient 6 months of age or older? YES 3. Does the patient have any of the following contraindications? Severe allergy to eggs? No Severe allergic reaction to previous influenza vaccines? No Allergy to contact lens solution/thimerosol? No History of Guillain-Worthington syndrome? No Currently have moderate or severe illness? No 3. The vaccine has been administered and the patient was instructed to wait 15 minutes before leaving the building in the event of an allergic reaction: YES Vaccination given by Gabbie Vanessa ma documented in this encounter Plan of Treatment Upcoming Encounters Date Type Specialty Care Team Description 11/15/2022 Virtual Visit Pharm D Haylie Cheung, [facility] [address] [facility] [place] [address] (Wo winter) 11/15/2022 Virtual Visit [place] [address] [place] [address] [place] [address] (Wo winter) 03/03/2023 Virtual Visit Neurology Erlinda Barber MD 420 [facility] [address] [place] [address] (Wo rk) documented as of this encounter Visit Diagnoses Diagnosis Need for prophylactic vaccination and in oculation against influenza - Primary documented in this encounter
--- OUTSIDE RECORDS SUMMARY | 2022-06-15 13:27 | XMS_ITS | Encounter Summary ---
:1945 Author Organization [facility] Address [address] [place] [address] Care Team Providers Name Role Phone Unavailable Primary Care Provider Unavailable Reason for Visit Reason Comments Anticoagulation Refill Request atenolol and triam-HCTZ Encounter Details Date Type Department Care Team Description 09/21/2009 Allied Health/[facility]urse [facility] Eag an Anticoagulation; Refill Visit 1440 JUN[facility]E Request (atenolol ... [place] [address] Social History Tobacco Use [...] this encounter Progress Notes Qing Guy - 09/21/2009 8:18 AM CST ANTICOAGULATION FOLLOW-UP CLINIC VISIT Patient Name: Charlette rBush Date: 09/21/2009 SUBJECTIVE: Bleeding Signs/Symptoms: None Thromboembolic Signs/Symptoms: None Medication Changes: Yes - has been taking more Tylenol for right knee and back pain. Dietary Changes: No Bacterial/Viral Infection: No Missed Coumadin Doses: None Other Concerns: She went to a chiropractor and now her right knee is more painful and swollen. ASSESSMENT/PLAN: See: ANTICOAGULATION QIC flow sheet. ANTICOAGULATION CLINIC Qing Guy RN ECTOR FLOOR documented in this encounter Nursing Notes 09/21/2009 8:00 AM CST >> QING GUY Mon Sep 21, 2009 8:27 AM Charlette Brush presents for INR and refill request. Last 1 Encounter BP Readings: 08/10/2009 8:24 AM : 128/70 Last pertinent lab: POTASSIUM 4.2 12/29/2008 CR 0.64 12/29/2008 Refilled per nurse protocol standing orders until December. Estimated Body mass index is 61.55 kg/(m^2) as calculated from the following: Height as of 01/08/09: 5' 7(1.702 m). Weight as of 06/29/09: 393 lb(178.264 kg). Qing Guy RN documented in this encounter Plan of Treatment Upcoming Encounters Date Type Specialty Care Team Description 11/15/2022 Virtual Visit Pharm Haylie Gonzalez, [facility] [address] [place] [address] (Lena max) 11/15/2022 Virtual Visit [place] [address] [place] [address] [place] [address] (Lena max) 03/03/2023 Virtual Visit Neurology Erlinda Barber MD [address] [facility] [address] [place] [address] (Lena max) documented as of this encounter Procedures Procedure Name Priority Date/Time Associated Diagnosis Comme nts HCL INR POCT Routine 09/21/2009 Encounter for Long-Term Resu lts for this (Current) Use of procedure a re in the Anticoagulants results secti on. documented in this encounter Results INR POINT OF CARE (09/21/2009) P athologist Signature INR Point of 3.0 [facility] Mari Esparza MD LABORATORY Performing Organization Address City/State/ZIP Code Phon e Number [facility] documented in this encounter Visit Diagnoses Diagnosis 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 (current) use of anticoagulant s - Primary Long-term (current) use of anticoagulant s Essential hypertension, benign documented in this encounter
--- OUTSIDE RECORDS SUMMARY | 2022-06-15 13:27 | XMS_ITS | Encounter Summary ---
:1945 Author Organization [facility] Address [address] [place] [address] Care Team Providers Name Role Phone Unavailable Primary Care Provider Unavailable Reason for Visit Reason Comments Anticoagulation Encounter Details Date Type Department Care Team Description 05/18/2009 Allied Health/Nurse [facility] Eag an Anticoagulation Visit 14[address] [facility] [place] [address] Social History Tobacco [...] - Inhaled Oxygen Concentration - - Weight 184 kg (405 lb 9.6 oz) 05/18/2009 8:01 AM CHANGE MANAGEMENT COORDINATOR Height - - Body Mass Index 63.53 01/08/2009 9:35 AM CDT documented in this encounter Progress Notes Qing Guy - 05/18/2009 8:19 AM CST ANTICOAGULATION FOLLOW-UP CLINIC VISIT Patient Name: Charlette Brush Date: 05/18/2009 SUBJECTIVE: Bleeding Signs/Symptoms: None Thromboembolic Signs/Symptoms: None Medication Changes: Taking tylenol for URI Dietary Changes: No Bacterial/Viral Infection: Yes - laryngitis, sore throat, clear nasal drainage x 1 week Missed Coumadin Doses: None Other Concerns: No ASSESSMENT/PLAN: See: ANTICOAGULATION QIC flow sheet. ANTICOAGULATION CLINIC Qing Guy RN GE MANAGEMENT COORDINATOR documented in this encounter Nursing Notes 05/18/2009 8:00 AM CST >> QING GUY Mon May 18, 2009 8:21 AM Charlette Brush presents for INR. Estimated Body mass index is 63.53 kg/(m^2) as calculated from: Height of 5' 7 (1.702 m) as of 01/08/09 Weight of 405 lb 9.6 oz (183.979 kg) as of this encounter Qing Guy RN documented in this encounter Plan of Treatment Upcoming Encounters Date Type Specialty Care Team Description 11/15/2022 Virtual Visit Pharm Haylie Gonzalez, [facility] [address] [place] [address] (Lena max) 11/15/2022 Virtual Visit [place] [address] [place] [address] [place] [phone] (Lena max) 03/03/2023 Virtual Visit Neurology Erlinda Barber MD 420 [facility] [address] [place], [place] [address] (Lena max) documented as of this encounter Procedures Procedure Name Priority Date/Time Associated Diagnosis Comme nts HCL INR POCT Routine 05/18/2009 Encounter for Long-Term Resu lts for this (Current) Use of procedure a re in the Anticoagulants results secti on. documented in this encounter Results INR POINT OF CARE (05/18/2009) P athologist Signature INR Point of 2.3 [facility] Mari Esparza MD LABORATORY Performing Organization Address City/State/ZIP Code Phon e Number [facility] documented in this encounter Visit Diagnoses Diagnosis senior care (current) use of anticoagulant s - Primary Long-term (current) use of anticoagulant s documented in this encounter
--- OUTSIDE RECORDS SUMMARY | 2022-06-15 13:27 | XMS_ITS | Encounter Summary ---
:1945 Author Organization [facility] Address [address] [place] [address] Care Team Providers Name Role Phone Unavailable Primary Care Provider Unavailable Reason for Visit Reason Onset Date Comments Refill Request 04/08/2009 atenolol and triam/h ctz Encounter Details Date Type Department Care Team Description 04/08/2009 Refill [facility] Collette Esparza, Mari Sifuentes MD Refill Request 1440 [facility] JOYCE HUTCHINSON (atenolol and [place] [address] [facility] KJ montejo/hctz) [phone] [place] [address] (Wo rk) Social History Tobacco [...] Notes Telephone Encounter - Susie Murphy - 04/08/2009 11:56 AM CDT Date last filled: 01-09-09 Date of last OV: 01-08-09 BP: 124/74 Date of last labs pertaining to med: 12-29-08 Refilled per standing order. Susie Murphy RN documented in this encounter Plan of Treatment Upcoming Encounters Date Type Specialty Care Team Description 11/15/2022 Virtual Visit Pharm D Haylie Cheung, [facility] [address] [facility] [place] [address] (Lena max) 11/15/2022 Virtual Visit IM/Yane Mathias MD [address] [facility] [place] [address] (Lena max) 03/03/2023 Virtual Visit Neurology Erlinda Barber MD 420 [facility] 295 [place] [address] (Lena max) documented as of this encounter Visit Diagnoses Diagnosis Essential hypertension, benign documented in this encounter
--- OUTSIDE RECORDS SUMMARY | 2022-06-15 13:27 | XMS_ITS | Encounter Summary ---
:1945 Author Organization [facility] Address [address] [place] [address] Care Team Providers Name Role Phone Unavailable Primary Care Provider Unavailable Reason for Visit Reason Comments Anticoagulation Encounter Details Date Type Department Care Team Description 04/19/2010 Allied Health/[facility]urse [facility] Eag an Anticoagulation Visit 1440 [facility] [place] [address] Social [...] this encounter Progress Notes Qing Guy - 04/19/2010 8:20 AM CDT ANTICOAGULATION FOLLOW-UP CLINIC VISIT Patient Name: Charlette Brush Date: 04/19/2010 SUBJECTIVE: Bleeding Signs/Symptoms: None Thromboembolic Signs/Symptoms: None Medication Changes: No Dietary Changes: No Bacterial/Viral Infection: No Missed Coumadin Doses: None Other Concerns: No ASSESSMENT/PLAN: See: ANTICOAGULATION QIC flow sheet. [facility] ANT[facility]INIC Qing Guy RN documented in this encounter Nursing Notes 04/19/2010 8:15 AM CDT >> QING GUY Mon Apr 19, 2010 8:26 AM Charlette Brush presents for INR. Estimated Body mass index is 67.20 kg/(m^2) as calculated from the following: Height as of 12/11/09: 5' 6(1.676 m). Weight as of 12/11/09: 416 lb 6 oz(188.866 kg). Qing Guy RN documented in this encounter Plan of Treatment Upcoming Encounters Date Type Specialty Care Team Description 11/15/2022 Virtual Visit Pharm Haylie Gonzalez, [facility] [address] [facility] [place] [phone] (Lena max) 11/15/2022 Virtual Visit IM/Peds Yane Barraza MD [address] [facility] [place] [address] (Lena max) 03/03/2023 Virtual Visit Neurology Erlinda Barber MD 420 [facility] 295 [place], [place] [phone] (Lena max) documented as of this encounter Procedures Procedure Name Priority Date/Time Associated Diagnosis Comme nts HCL INR POCT Routine 04/19/2010 Encounter for long-term Resu lts for this (current) use of procedure a re in the anticoagulants results secti on. 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
--- OUTSIDE RECORDS SUMMARY | 2022-06-15 13:27 | XMS_ITS | Encounter Summary ---
:1945 Author Organization [facility] Address [address] [place] [address] Care Team Providers Name Role Phone Mari Esparza MD Primary Care Provider Encounter Details Date Type Department Care Team Description 08/19/2009 Office Visit-[facility] Dermatology Chastity Montero 5th Floor, Clinic 5A MD Roland [address] [place] [address] [facility] [place] [address] Social History Tobacco Use Types [...] of this encounter Progress Notes Chastity Montero - 08/19/2009 9:30 AM CST Production Corrugator: Chastity Montero Status: Final - Signature Encounter: 19 Aug 2009 Type: Dermatology Visit Department of Dermatology [place] Mail Code 98 [address] [place] [address] Dermatology Clinic [facility] Fifth Floor, Clinic 5A [address] [place] [address] Appt RE: Charlette Brush : 1945 DIRK: 08/19/2009 OUTPATIENT VISIT NOTE HISTORY OF PRESENT ILLNESS: The patient is a 64-year-old female well-known to me with a history of severe allergic contact dermatitis, stasis dermatitis and lymphedema. She has had multiple positive patch test results. Please refer to the note on April 01, 2009 for a discussion of these. She was actually presented at [facility] by Dr. Schroeder for her severe reaction. At this point, she is doing very well. She has Vanicream as her emollient, hydrocortisone 2.5% ointment and Topicort gel to use to affected areas as needed. She has not needed any recently. Overall, she feels that her skin is do ing well. She did recently visit a chiropractor for an initial consultation. There was some trauma at that point. She had been having intermittent headaches but did have some pain in her right knee related to this. With that, she wonders if there has been some slight swelling, more on the right leg, but overall at baseline, she has been doing much better. PHYSICAL EXAMINATION: The patient is a well-appearing female in no acute distress. Please note the nursing note for vital signs. Face, arms, legs are examined today. She does have diffuse xerosis overlying a Andre type I skin. There are chronic lymphedema changes of her bilateral lower extremities but no active dermatitis. ASSESSMENT/PLAN: Severe contact dermatitis with stasis dermatitis and lymphedema. At this point, thepatient has controlled her disease very well with avoidance behavior. She does have her tools to useshould she begin to flare, but I am very pleased with her progress. I will plan to see her back in six months. Chastity Montero M.D. Counter Manager Department of Dermatology [id number] Electronically signed by:Chastity Montero M.D. Aug 19 2009 11:53AM [employer] TE[employer] TEACHER documented in this encounter Plan of Treatment Upcoming Encounters Date Type Specialty Care Team Description 11/15/2022 Virtual Visit Pharm D Haylie Cheung, [facility] [address] [facility] [address] [place] [phone] (Wo rk) 11/15/2022 Virtual Visit IM/Yane Mathias MD [address] [facility] [facility] [place] [phone] (Wo rk) 03/03/2023 Virtual Visit Neurology Erlinda Barber MD [address] [facility] [address] [place] [address] (Wo rk) documented as of this encounter Visit Diagnoses Not on filedocumented in this encounter Care Teams Tile Designer Relationship Specialty Start Date End Date Mari Esparza MD PCP - General 10/05/10 10/10/11 AYLA HUTCHINSON [address] [place] [address] [place] [phone] documented as of this encounter
--- OUTSIDE RECORDS SUMMARY | 2022-06-15 13:27 | XMS_ITS | Encounter Summary ---
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 (Use extended vital tab for multiple readings and orthostatic) Vitals as recorded, a x-large cuff was used. Patient is taking medication as prescribed Patient is tolerating medications well. Patient is not monitoring Blood Pressure at home. Average readings if yes are Current complaints: none Disposition: results routed to MD/AP FACTURING PROJECT MANAGER documented in this encounter Plan of Treatment Upcoming Encounters Date Type Specialty Care Team Description 11/15/2022 Virtual Visit Pharm Haylie Gonzalez, [facility] [address] [place] [address] [place] [address] (Wo winter) 11/15/2022 Virtual Visit [place] [address] [place] [address] [place] [phone] (Wo winter) 03/03/2023 Virtual Visit Neurology Erlinda Barber MD 420 [facility] 295 [place] [address] (Wo winter) documented as of this encounter Visit Diagnoses Diagnosis BENIGN HYPERTENSION - Primary Essential hypertension, benign documented in this encounter
--- OUTSIDE RECORDS SUMMARY | 2022-06-15 13:27 | XMS_ITS | Encounter Summary ---
:1945 Author Organization [facility] Address [address] [place] [address] Care Team Providers Name Role Phone Unavailable Primary Care Provider Unavailable Reason for Visit Reason Comments Abstract BP from patient Encounter Details Date Type Department Care Team Description 07/24/2009 Abstract [facility] Collette Esparza, Mari Sifuentes MD 1440 [facility] [place] [address] [address] [phone] [place] [address] (Wo rk) Social History Tobacco [...] Sign Reading Time Taken Comments Blood Pressure 135/82 08/10/2009 8:23 AM RN SECURITY Pulse - - Temperature - - Respiratory Rate - - Oxygen Saturation - - Inhaled Oxygen Concentration - - Weight - - Height - - Body Mass Index - - documented in this encounter Nursing Notes 07/24/2009 12:00 PM CST >> QING GUY Mon Aug 10, 2009 8:25 AM Pt had BP taken at another clinic appt and reported it today. Qnig Guy RN documented in this encounter Plan of Treatment Upcoming Encounters Date Type Specialty Care Team Description 11/15/2022 Virtual Visit Pharm D Haylie Cheung, [facility] [address] [place] [address] (Wo rk) 11/15/2022 Virtual Visit IM/Peds Yane Barraza MD [address] [facility] [address] [place] [phone] (Wo rk) 03/03/2023 Virtual Visit Neurology Erlinda Barber MD 420 [facility] 295 [place] [address] (Wo rk) documented as of this encounter Visit Diagnoses Not on filedocumented in this encounter
--- OUTSIDE RECORDS SUMMARY | 2022-06-15 13:27 | XMS_ITS | Encounter Summary ---
:1945 Author Organization [facility] Address [address] [place] [address] Care Team Providers Name Role Phone Unavailable Primary Care Provider Unavailable Reason for Visit Reason Comments Physical no concerns Encounter Details Date Type Department Care Team Description 12/11/2009 Office Visit [facility] Xu Esparza Routi ne General Medical Examination at a Health Care Facility (Primary Dx); Yarelis PATEL Essential Hypertension, Benign; 1440 [facility] Encounter for Long-Term (Cur rent) Use of Anticoagulants; [place] [address] JASPER Impaired Fasting Glucose [phone] [place] [address] (Wo rk) Social History Tobacco Use [...] Sign Reading Time Taken Comments Blood Pressure 138/80 12/11/2009 10:04 radial pulse ta larry AM CDT with large cuff Pulse 60 12/11/2009 10:04 AM CDT Temperature - - Respiratory Rate - - Oxygen Saturation - - Inhaled Oxygen - - Concentration Weight 188.9 kg (416 lb 6 12/11/2009 10:04 oz) AM CDT Height 167.6 cm (5' 6) 12/11/2009 10:04 AM CDT Body Mass Index 67.2 12/11/2009 10:04 AM CDT documented in this encounter Progress Notes Xu Esparza - 12/11/2009 10:09 AM CDT CC: Marzena Brush is an 64 year old woman who presents for preventive health visit. HPI: Besides routine health maintenance, she has no other health concerns today . Healthy Habits: Do you get at least three servings of dairy daily (milk, cheese, yogurt, etc.)? yes Outside of work or daily activities, how many days per week do you exercise for 30 minutes or longer? none Have you had an eye exam in the past two years? yes Do you see a dentist twice per year? yes Staff Signature Bee Pimentel CMA PHQ-2 Over the last two weeks- Have you been bothered by little interest or pleasure in doing things? No Over the last two weeks- Have you been feeling down, depressed, or hopeless? No Abuse: Current or Past(Physical, Sexual or Emotional)- NO Do you feel safe in your environment - YES History Substance Use Topics ??? Tobacco Use: Never ??? Alcohol Use: No The patient does not drink >3 drinks per day nor >7 drinks per week. Staff Signature Bee Pimentel CMA History of abnormal Pap smear: no All Histories reviewed and updated in [facility]. ROS: C: NEGATIVE for fever, chills, change [...] NEGATIVE for unusual urinary or vaginal symptoms. M: NEGATIVE for significant arthralgias or myalgia N: NEGATIVE for weakness, dizziness or paresthesias P: NEGATIVE for changes in mood or affect OBJECTIVE: BP 138/80 Pulse 60 Ht 5' 6 (1.676 m) Wt 416 lb 6 oz (188.866 kg) GENERAL APPEARANCE: health, alert and no distress EYES: Eyes grossly [...] palpable axillary masses or adenopathy CV: regular rates and rhythm, normal S1 S2, no S3 or S4, no murmur, click or rub, no peripheral edema and peripheral pulses strong ABDOMEN: soft, nontender, no hepatosplenomegaly, no masses and bowel sounds normal (female): normal female external genitalia, vaginal mucosa pink, normal cervix, adnexae, and uterus without masses or discharge very limited exam due to size, difficult to reach cervix, not sure if able to obtain adequate sample MS: no musculoskeletal defects are noted and gait is age appropriate without ataxia SKIN: chronic venous stasis changes NEURO: Normal strength and tone, sensory exam grossly normal, mentation intact and speech normal PSYCH: mentation appears normal and affect normal/bright Counseling: weight management healthy diet/nutrition ASSESSMENT/PLAN: V70.0 Routine General Medical Examination at a Health Care Facility (primary encounter diagnosis) Comment: Plan: A THIN LAYER PAP SCREEN, MAMMOGRAM, SCREENING 401.1 Essential Hypertension, Benign Comment: Plan: COZAAR 100 MG PO TABS, TRIAMTERENE-HCTZ 37.5-25 MG PO CAPS, ATENOLOL 25 MG PO TABS V58.61 Encounter for Long-Term (Current) Use of Anticoagulants Comment: Plan: 790.21 Impaired Fasting Glucose Comment: Plan: check A1C, advised prediabetes class Extreme morbid obesity-recommended medical weight loss clinic at [facility] (Dr Ceja) documented in this encounter Nursing Notes 12/11/2009 10:15 AM CDT >> BEE PIMENTEL MonDecember 11, 2009 10:12 AM Patient presents with: Physical - no concerns Initial BP 138/80 Pulse 60 Ht 5' 6 (1.676 m) Wt 416 lb 6 oz (188.866 kg) Estimated Body mass index is 67.20 kg/(m^2) as calculated from the following: Height as of this encounter: 5' 6(1.676 m). Weight as of this encounter: 416 lb 6 oz(188.866 kg).. BP completed using cuff size: large Radial pulse taken. Bee Pimentel CMA documented in this encounter Plan of Treatment Upcoming Encounters Date Type Specialty Care Team Description 11/15/2022 Virtual Visit Pharm D Haylie Cheung, [facility] [address] [facility] [address] [place], [place] [phone] (Wo rk) 11/15/2022 Virtual Visit IM/Peds Yane Barraza MD [address] [facility] [address] [place] [phone] (Wo rk) 03/03/2023 Virtual Visit Neurology Erlinda Barber MD 420 [facility] 295 [place], [place] [address] (Wo rk) documented as of this encounter Procedures Procedure Name Priority Date/Time Associated Diagnosis Comme nts HCL PAP THIN LAYER Routine 12/11/2009 12:00 AM Routine General Results for this SCREEN CDT Medical Examination procedur e are in at a Health Care the results Facility section. documented in this encounter Results A THIN LAYER PAP SCREEN (12/11/2009 12:00 AM CDT) Component Value Ref Test Analysis Performed At [facility] Range Method Time Signature PAP NIL COPATH Copath Report COPATH Patient Name: MARZENA BRUSH MR#: [id number] Specimen #: [id number] Collected: 12/11/2009 Received: 12/15/2009 Reported: 12/16/2009 13:33 Ordering Phy(s): XU ESPARZA SPECIMEN/STAIN PROCESS: Pap thin layer prep screening ([facility]) ? Pap-Cyto x 1, Reflex HPV x 1 SOURCE: Cervical, endocervical ---- Pap thin layer prep screening ([facility]) SPECIMEN ADEQUACY: Satisfactory for evaluation. -Transformation zone component absent. CYTOLOGIC INTERPRETATION: Negative for Intraepithelial Lesion or Malignancy Electronically signed out by: MAREN Almonte ( ASCP) Processed and screened at [facility] CLINICAL HISTORY: Previous normal pap Date of Last Pap: 10/08/2007, Papanicolaou Test Limitations: ??Cervical cytology is a scre ening test with limited sensitivity; regular screening is critical for cancer prevention; Pap tests are primarily effective for the diagnosis/prevention of squamous cell carcinoma, not adenoca rcinomas or other cancers. TESTING LAB LOCATION: [address] ??[id number] COLLECTION SITE: Client: ??[facility] Location: EA (R) Specimen (Source) Anatomical Collection Method Collection Time Re ceived Time Location / / Volume Laterality 12/11/2009 12/15/2009 10:3 7 AM CDT Xu Esparza MD LABORATORY Performing Organization Address City/State/ZIP Code Phon e Number COPATH documented in this encounter Visit Diagnoses Diagnosis Routine general medical examination at a health care facility - Primary Essential hypertension, benign [facility] (current) use of anticoagulant s Long-term (current) use of anticoagulant s Impaired fasting glucose documented in this encounter
--- OUTSIDE RECORDS SUMMARY | 2022-06-15 13:27 | XMS_ITS | Encounter Summary ---
:1945 Author Organization [facility] Address [address] [place] [address] Care Team Providers Name Role Phone Unavailable Primary Care Provider Unavailable Reason for Visit Reason Onset Date Comments Refill Request 09/29/2009 Warfarin Encounter Details Date Type Department Care Team Description 09/29/2009 Refill [facility] Collette Esparza, Mari Sifuentes MD Refill Request 1440 [facility] JOYCE HUTCHINSON (Warfarin) [place] [phone] 0[address] [phone] [place] [address] (Wo rk) Social History Tobacco [...] this encounter Miscellaneous Notes Telephone Encounter - Khadar Austineen - 09/29/2009 10:46 AM CDT Refill request from pharmacy. Last office visit: 09/21/09 Last pertinent lab: ??INR 3.0 on 09/21/09 Refilled per nurse protocol standing orders. Prasanth Austin RN documented in this encounter Plan of Treatment Upcoming Encounters Date Type Specialty Care Team Description 11/15/2022 Virtual Visit Pharm Haylie Gonzalez, [facility] [address] [place] [address] (Wo rk) 11/15/2022 Virtual Visit IM/Peds Yane Barraza MD [address] [facility] [address] [place] [phone] (Wo rk) 03/03/2023 Virtual Visit Neurology Erlinda Barber MD 420 [facility] [place] [address] [place], [place] [phone] (Wo rk) documented as of this encounter Visit Diagnoses Diagnosis long-term (current) use of anticoagulant s Long-term (current) use of anticoagulant s Other pulmonary embolism and infarction documented in this encounter
--- OUTSIDE RECORDS SUMMARY | 2022-06-15 13:27 | XMS_ITS | Encounter Summary ---
:1945 Author Organization [facility] Address [address] [place] [address] Care Team Providers Name Role Phone Unavailable Primary Care Provider Unavailable Reason for Visit Reason Comments Flu Shot Encounter Details Date Type Department Care Team Description 04/19/2010 [facility] Eag an Flu Shot Visit 1440 [facility] [place] [phone] Social [...] documented as of this encounter Progress Notes Glenroy Martinez - 04/19/2010 8:49 AM CDT Addended by: GLENROY MARTINEZ on: 04/19/2010 Modules accepted: Orders Glenroy Martinez - 04/19/2010 8:24 AM CDT Injectable Influenza Immunization Documentation 1. Has the patient received the information for the injectable influenza vaccine? YES 2. Is the patient 6 months of age or older? YES 3. Does the patient have any of the following contraindications? Severe allergy to eggs? No Severe allergic reaction to previous influenza vaccines? No Allergy to contact lens solution/thimerosol? No History of Guillain-Frankfort syndrome? No Currently have moderate or severe illness? No 4. The vaccine has been administered and the patient was instructed to wait 15 minutes before leaving the building in the event of an allergic reaction: YES Vaccination given by Glenroy Martinez LPN documented in this encounter Plan of Treatment Upcoming Encounters Date Type Specialty Care Team Description 11/15/2022 Virtual Visit Pharm Haylie Gonzalez, [facility] 1440 [facility] [place] [phone] (Lena max) 11/15/2022 Virtual Visit [place] [address] [place] [address] [place] [phone] (Lena max) 03/03/2023 Virtual Visit Neurology Erlinda Barber MD 420 [facility] 295 [place], [place] [phone] (Lena max) documented as of this encounter Visit Diagnoses Diagnosis Need for prophylactic vaccination and in oculation against influenza - Primary documented in this encounter
--- OUTSIDE RECORDS SUMMARY | 2022-06-15 13:27 | XMS_ITS | Encounter Summary ---
:1945 Author Organization [facility] Address [address] [place] [address] Care Team Providers Name Role Phone Unavailable Primary Care Provider Unavailable Reason for Visit Reason Comments Anticoagulation Encounter Details Date Type Department Care Team Description 12/15/2009 [facility] Eag an Anticoagulation Visit 1440 [facility] [place] [phone] Social History [...] as of this encounter Progress Notes Ayanna Reyes - 12/15/2009 3:06 PM CDT ANTICOAGULATION FOLLOW-UP CLINIC VISIT Patient Name: Charlette Brush Date: 12/15/2009 SUBJECTIVE: Bleeding Signs/Symptoms: None Thromboembolic Signs/Symptoms: None Medication Changes: No Dietary Changes: Pt will eat more salads to reduce INR. Bacterial/Viral Infection: No Missed Coumadin Doses: None Other Concerns: No ASSESSMENT/PLAN: See: ANTICOAGULATION QIC flow sheet. [facility] Prasanth Reyes RN documented in this encounter Nursing Notes 12/15/2009 8:00 AM CDT >> AYANNA REYES Tubarrett Dec 15, 2009 3:11 PM Charlette Brush presents for INR Estimated Body mass index is 67.20 kg/(m^2) as calculated from the following: Height as of 12/11/09: 5' 6(1.676 m). Weight as of 12/11/09: 416 lb 6 oz(188.866 kg). Prasanth Reyes RN documented in this encounter Plan of Treatment Upcoming Encounters Date Type Specialty Care Team Description 11/15/2022 Virtual Visit Pharm Haylie Gonzalez, [facility] [address] [facility] [place] [address] (Lena max) 11/15/2022 Virtual Visit IM/Peds Yane Barraza MD [address] [place] [address] (Lena max) 03/03/2023 Virtual Visit Neurology Erlinda Barber MD 420 [facility] 295 [place], [place] [phone] (Lena max) documented as of this encounter Procedures Procedure Name Priority Date/Time Associated Diagnosis Comme nts HCL GLYCATED Routine 12/15/2009 7:48 AM BENIGN HYPERT ENSION Results for this HEMOGLOBIN CDT Morbid Obesity (H) procedure are in the results section. HCL INR POCT Routine 12/15/2009 Encounter for Results for th is Long-Term (Current) procedur e are in Use of Anticoagulants the re sults section. documented in this encounter Results HEMOGLOBIN A1C (12/15/2009 7:48 AM CDT) P athologist Signature Hemoglobin A1C 5.8 4.3 - 6.0 [facility] Specimen Anatomical Collection Method Collection Time Receive d Time (Source) Location / / Volume Laterality 12/15/2009 7:48 AM 0 7:50 CDT AM CDT Mari Esparza MD LABORATORY Performing Organization Address City/[facility]/ZIP Code Phon e Number [facility] [address] [place] [address] [facility] LAB INR POINT OF CARE (12/15/2009) P athologist Signature INR Point of 3.2 [facility] Mari Esparza MD LABORATORY Performing Organization Address City/[facility]/ZIP Code Phon e Number [facility] documented in this encounter Visit Diagnoses Diagnosis BENIGN HYPERTENSION Essential hypertension, benign Morbid obesity (H) Morbid obesity skilled nursing (current) use of anticoagulant s Long-term (current) use of anticoagulant s documented in this encounter
--- OUTSIDE RECORDS SUMMARY | 2022-06-15 13:27 | XMS_ITS | Encounter Summary ---
:1945 Author Organization [facility] Address [address] [place] [address] Care Team Providers Name Role Phone Unavailable Primary Care Provider Unavailable Reason for Visit Reason Comments Derm Problem lesion on back Encounter Details Date Type Department Care Team Description 08/12/2010 Office Visit [facility] Kendall Figueroa Cellulitis (Primary Dx); 1440 [facility] ABHISHEK English Dermatitis, stasis [place] [phone] [facility] [phone] [facility] [address] [place] [address] [place] [phone] Social History Tobacco Use Types Packs/Day Years [...] Sign Reading Time Taken Comments Blood Pressure 145/70 08/12/2010 10:15 AM 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 Pulse 60 08/12/2010 10:15 AM 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 Temperature 37.1 ??C (98.7 ??F) 08/12/2010 10:15 AM 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 Respiratory Rate - - Oxygen Saturation - - Inhaled Oxygen Concentration - - Weight 191.7 kg (422 lb 9.6 oz) 08/12/2010 10:15 AM 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 Height 167.6 cm (5' 6) 08/12/2010 10:15 AM 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 Body Mass Index 68.21 08/12/2010 10:15 AM 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 documented in this encounter Progress Notes Kendall Hernandez - 08/12/2010 10:20 AM CST SUBJECTIVE: Charlette Brush is a 65 year old female presents for symptoms of illness Symptoms include: red spot on lowe middle back Onset was how long ago? Not sure, can not see it Symptoms are : not sure. Severity of symptoms: moderate Fever: No fever ill contacts: none known Kathleen Bolaños LPN See above. Patient had an extensive history and is on multiple meds including Coumadin. She is checked monthly. She has multiple med allergies as well. She felt something on the low back a few days ago. She had a co-worker look at it and has applied a band aid. She is very sensitive to vehicles used with topical meds. She uses a specific hypoallergenic soap. ROS: 5-Point Review of Systems Negative-- Except as stated above. OBJECTIVE: BP 145/70 Pulse 60 Temp(Src) 98.7 ??F (37.1 ??C) (Oral) Ht 5' 6 (1.676 m) Wt 422 lb 9.6 oz (191.69 kg) GENERAL APPEARANCE: Over 400# and moves with difficulty. SKIN:Eruption marked. 1 cm lesion on the lower lumbar region. Centralized scab and 1 cm area of cellulitis. Minimal irritant dermatitis from Band Aid. Stasis dermatitis hyperpigmentation. Reviewed pictures on the internet. ASSESSMENT/PLAN: 682.9M Cellulitis (primary encounter diagnosis) Comment: Plan: DoxyCYCline (VIBRA-TABS) 100 MG tablet twice daily for 7 days Coumadin should be checked on Monday Reviewed interaction on internet. 454.1E Dermatitis, stasis Comment: [email or web address] centerQgiv/health/cellulitis/OI79898/METHOD=print MATIC DEICER INSPECTOR documented in this encounter Nursing Notes 08/12/2010 10:15 AM CST >> KATHLEEN BOLAÑOS Deepali Aug 12, 2010 10:20 AM Patient presents with: Derm Problem - lesion on back Initial BP 145/70 Pulse 60 Temp(Src) 98.7 ??F (37.1 ??C) (Oral) Ht 5' 6 (1.676 m) Wt 422 lb9.6 oz (191.69 kg) Estimated Body mass index is 68.21 kg/(m^2) as calculated from the following: Height as of this encounter: 5' 6(1.676 m). Weight as of this encounter: 422 lb 9.6 oz(191.69 kg).. BP completed using cuff size: large Kathleen Bolaños LPN documented in this encounter Plan of Treatment Upcoming Encounters Date Type Specialty Care Team Description 11/15/2022 Virtual Visit Pharm D Haylie Cheung, [facility] [address] [facility] [place] [id number] (Wo rk) 11/15/2022 Virtual Visit [place] [address] [place] [address] [place] [id number] (Wo rk) 03/03/2023 Virtual Visit Neurology Erlinda Barber MD 420 [facility] 295 [place], [place] [phone] (Wo rk) documented as of this encounter Visit Diagnoses Diagnosis Cellulitis - Primary Cellulitis and abscess of unspecified si te Dermatitis, stasis Varicose veins of lower extremities with inflammation documented in this encounter
--- OUTSIDE RECORDS SUMMARY | 2022-06-15 13:27 | XMS_ITS | Encounter Summary ---
:1945 Author Organization [facility] Address [address] [place] [address] Care Team Providers Name Role Phone Mari Esparza MD Primary Care Provider Encounter Details Date Type Department Care Team Description 03/10/2010 Office Visit-[facility] DEPT Provider, [facility] [...] encounter Progress Notes Provider, La Nurse - 03/10/2010 8:45 AM CDT Outside B2B Sales: Amelia Guerin Status: Final Encounter: 10 Mar 2010 Type: Rooming Note Reason For Visit CHARLETTE BRUSH (: 1945, ) is a 65 year old female coming to clinic for followup contact dermatitis with stasis dermatitis and lymphedema. Do you have any other appointments, tests or procedures within the [facility] system for this same day? No. Pain Eval Current history of pain associated with this visit is denied. Personal Hx Behavioral history: No tobacco use. Home environment: No secondhand tobacco smoke in home. Vital Signs Recorded by Amelia Guerin on 10 Mar 2010 08:42 AM BP:137/75, LUE, Sitting, HR: 71 b/min, L Radial, Height: 67 in, Weight: 416 lb, BMI: 65.2 kg/m2. Allergies Bactroban CREA Bactroban OINT Budesonide POWD Clotrimazole SOLN Keflex CAPS Lanolin OINT Moisturel Lotion Nutraderm Lotion Penicillins. Current Meds Med list offered and patient declined. Triamterene-HCTZ 37.5-25 MG Capsule;TAKE 1 CAPSULE DAILY.; [...] mouth twice daily; Rx AAA-MED RECONCILE;per patient; RPT. 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 documented in this encounter Plan of Treatment Upcoming Encounters Date Type Specialty Care Team Description 11/15/2022 Virtual Visit Pharm D Haylie Cheung, [facility] 1440 [facility] [place] [address] (Lena max) 11/15/2022 Virtual Visit IM/Yane Mathias MD 3[address] [facility] [place] [address] (Lena max) 03/03/2023 Virtual Visit Neurology Erlinda Barber MD 420 [facility] 295 [place] [address] (Wo rk) documented as of this encounter Visit Diagnoses Not on filedocumented in this encounter Care Teams Data Miner Relationship Specialty Start Date End Date Mari Esparza MD PCP - General 10/05/10 10/10/11 AYLA HUTCHINSON [address] [place] [address] [place] [address] documented as of this encounter
--- OUTSIDE RECORDS SUMMARY | 2022-06-15 13:27 | XMS_ITS | Encounter Summary ---
:1945 Author Organization [facility] Address [address] [place] [address] Care Team Providers Name Role Phone Unavailable Primary Care Provider Unavailable Reason for Visit Reason Comments Anticoagulation Encounter Details Date Type Department Care Team Description 06/14/2010 Allied Health/[facility] Eag an Anticoagulation Visit 1440 [facility] [place] [phone] Social History Tobacco Use [...] this encounter Progress Notes Qing Guy - 06/14/2010 8:10 AM CST ANTICOAGULATION FOLLOW-UP CLINIC VISIT Patient Name: Charlette Brush Date: 06/14/2010 SUBJECTIVE: Bleeding Signs/Symptoms: None Thromboembolic Signs/Symptoms: None Medication Changes: No Dietary Changes: No Bacterial/Viral Infection: No Missed Coumadin Doses: None Other Concerns: No ASSESSMENT/PLAN: See: ANTICOAGULATION QIC flow sheet. [facility] Qing Guy RN KING MACHINE OPERATOR SECOND documented in this encounter Nursing Notes 06/14/2010 8:00 AM CST >> QING GUY Mon Jun 14, 2010 8:17 AM Charlette Brush presents for INR. Estimated Body mass index is 67.20 kg/(m^2) as calculated from the following: Height as of 12/11/09: 5' 6(1.676 m). Weight as of 12/11/09: 416 lb 6 oz(188.866 kg). Qing Guy RN documented in this encounter Plan of Treatment Upcoming Encounters Date Type Specialty Care Team Description 11/15/2022 Virtual Visit Pharm Haylie Gonzalez, [facility] [address] [facility] [place] [address] (Lena max) 11/15/2022 Virtual Visit IM/Peds Yane Barraza MD 3[address] [facility] [place] [address] (Lena max) 03/03/2023 Virtual Visit Neurology Erlinda Barber MD 420 [facility] 295 [place], [place] [phone] (Lena max) documented as of this encounter Procedures Procedure Name Priority Date/Time Associated Diagnosis Comme nts INR POINT OF CARE Routine 06/14/2010 Encounter for long-term Results for this (current) use of procedure a re in the anticoagulants results secti on. documented in this encounter Results INR point of care (06/14/2010) P athologist Signature INR Point of 2.8 [facility] Mari Esparza MD LAB - BLOOD ORDERABLES Performing Organization Address City/State/ZIP Code Phon e Number [facility] documented in this encounter Visit Diagnoses Diagnosis [facility]PC (current) use of anticoagulant s - Primary Long-term (current) use of anticoagulant s documented in this encounter
--- OUTSIDE RECORDS SUMMARY | 2022-06-15 13:27 | XMS_ITS | Encounter Summary ---
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 Bacterial/Viral Infection: No Missed Coumadin Doses: None Other Concerns: No ASSESSMENT/PLAN: See: ANTICOAGULATION QIC flow sheet. ANTICOAGULATION CLINIC Qing Guy RN URE ANALYSIS TECHNICIAN documented in this encounter Nursing Notes 06/29/2009 8:00 AM CST >> QING GUY Mon Jun 29, 2009 9:18 AM Charlette Brush presents for INR. Estimated Body mass index is 63.53 kg/(m^2) as calculated from: Height of 5' 7 (1.702 m) as of 01/08/09 Weight of 405 lb 9.6 oz (183.979 kg) as of 05/18/09 Qing Guy RN documented in this encounter Plan of Treatment Upcoming Encounters Date Type Specialty Care Team Description 11/15/2022 Virtual Visit Pharm Haylie Gonzalez, [facility] [address] [facility] [place] [address] (Lena max) 11/15/2022 Virtual Visit [place] [address] [place] [address] [place] [phone] (Lena max) 03/03/2023 Virtual Visit Neurology Erlinda Barber MD 420 [facility] 295 [place], [place] [phone] (Lena max) documented as of this encounter Procedures Procedure Name Priority Date/Time Associated Diagnosis Comme nts HCL INR POCT Routine 06/29/2009 Encounter for Long-Term Resu lts for this (Current) Use of procedure a re in the Anticoagulants results secti on. documented in this encounter Results INR POINT OF CARE (06/29/2009) P athologist Signature INR Point of 2.1 [facility] Mari Esparza MD LABORATORY Performing Organization Address City/State/ZIP Code Phon e Number [facility] documented in this encounter Visit Diagnoses Diagnosis long-term (current) use of anticoagulant s - Primary Long-term (current) use of anticoagulant s documented in this encounter
--- OUTSIDE RECORDS SUMMARY | 2022-06-15 13:27 | XMS_ITS | Encounter Summary ---
:1945 Author Organization [facility] Address [address] [place] [address] Care Team Providers Name Role Phone Unavailable Primary Care Provider Unavailable Reason for Visit Reason Onset Date Comments Lesion 08/12/2010 area on back looks infected Encounter Details Date Type Department Care Team Description 08/12/2010 Telephone [facility] Eag clinton Esparza, Mari Sifuentes, Lesion (area on back 1440 [facility] MD looks infected) [place] [phone] AYLA COOK [phone] [address] [address] [place] [address] (Wo rk) Social [...] this encounter Miscellaneous Notes Telephone Encounter - NepplDoraDana - 08/12/2010 9:06 AM CST Pt reports that she has an area on back that has been there about 10 days and was somewhat irritating but did not get concerned. It is at waist level in center of back. Coworker has told her that it islooking infected. Will come in to see KKennelly this am. To have it checked. Dana Nettles RN CHBOARD INSTALLER documented in this encounter Plan of Treatment Upcoming Encounters Date Type Specialty Care Team Description 11/15/2022 Virtual Visit Pharm D Haylie Cheung, [facility] 1440 [facility] [place] [address] (Lena max) 11/15/2022 Virtual Visit IM/Peds Yane Barraza MD 3[address] [facility] [place] [address] (Lena max) 03/03/2023 Virtual Visit Neurology Erlinda Barber MD 420 [facility] 295 [place] [address] (Lena max) documented as of this encounter Visit Diagnoses Not on filedocumented in this encounter
--- OUTSIDE RECORDS SUMMARY | 2022-06-15 13:27 | XMS_ITS | Encounter Summary ---
:1945 Author Organization [facility] Address [address] [place] [address] Care Team Providers Name Role Phone Unavailable Primary Care Provider Unavailable Reason for Visit Reason Comments Anticoagulation Encounter Details Date Type Department Care Team Description 08/10/2009 Allied Health/[facility] Eag an Anticoagulation Visit 14[address] [facility] [...] this encounter Progress Notes Qing Guy - 08/10/2009 8:32 AM CST ANTICOAGULATION FOLLOW-UP CLINIC VISIT Patient Name: Charlette Brush Date: 08/10/2009 SUBJECTIVE: Bleeding Signs/Symptoms: None Thromboembolic Signs/Symptoms: None Medication Changes: No Dietary Changes: No Bacterial/Viral Infection: Yes - has had a cough and using Mucinex Missed Coumadin Doses: None Other Concerns: No ASSESSMENT/PLAN: See: ANTICOAGULATION QIC flow sheet. [facility] Qing Guy RN OGIC DEVELOPER documented in this encounter Nursing Notes 08/10/2009 8:00 AM CST >> QING GUY Mon Aug 10, 2009 8:33 AM Charlette Brush presents for INR. Estimated Body mass index is 61.55 kg/(m^2) as calculated from: Height of 5' 7 (1.702 m) as of 01/08/09 Weight of 393 lb (178.264 kg) as of 06/29/09 Qing Guy RN documented in this encounter Plan of Treatment Upcoming Encounters Date Type Specialty Care Team Description 11/15/2022 Virtual Visit Pharm D Haylie Cheung, [facility] [address] [facility] [address] [place] [phone] (Wo winter) 11/15/2022 Virtual Visit IM/Peds Yane Barraza MD [address] [facility] [place] [address] (Wo winter) 03/03/2023 Virtual Visit Neurology Erlinda Barber MD 420 [facility] 295 [place], [place] [phone] (Wo rk) documented as of this encounter Procedures Procedure Name Priority Date/Time Associated Diagnosis Comme nts HCL INR POCT Routine 08/10/2009 Encounter for Long-Term Resu lts for this (Current) Use of procedure a re in the Anticoagulants results secti on. documented in this encounter Results INR POINT OF CARE (08/10/2009) P athologist Signature INR Point of 2.1 [facility] Mari Esparza MD LABORATORY Performing Organization Address City/State/ZIP Code Phon e Number [facility] documented in this encounter Visit Diagnoses Diagnosis halfway (current) use of anticoagulant s - Primary Long-term (current) use of anticoagulant s documented in this encounter
--- OUTSIDE RECORDS SUMMARY | 2022-06-15 13:27 | XMS_ITS | Encounter Summary ---
:1945 Author Organization [place] Address [address] [place] [address] Care Team Providers Name Role Phone Unavailable Primary Care Provider Unavailable Reason for Visit Reason Comments Anticoagulation Encounter Details Date Type Department Care Team Description 03/08/2010 [facility] Eag an Anticoagulation Visit 14[address] [facility] [place] [phone] Social History Tobacco [...] this encounter Progress Notes Qing Guy - 03/08/2010 8:33 AM CDT ANTICOAGULATION FOLLOW-UP CLINIC VISIT Patient Name: Charlette Brush Date: 03/08/2010 SUBJECTIVE: Bleeding Signs/Symptoms: None Thromboembolic Signs/Symptoms: None Medication Changes: No Dietary Changes: No Bacterial/Viral Infection: No Missed Coumadin Doses: None Other Concerns: No ASSESSMENT/PLAN: See: ANTICOAGULATION QIC flow sheet. [facility] Qing Guy RN documented in this encounter Nursing Notes 03/08/2010 8:15 AM CDT >> QING GUY Mon Mar 08, 2010 8:52 AM Charlette Brush presents for INR. Estimated Body mass index is 67.20 kg/(m^2) as calculated from the following: Height as of 12/11/09: 5' 6(1.676 m). Weight as of 12/11/09: 416 lb 6 oz(188.866 kg). Qing Guy RN documented in this encounter Plan of Treatment Upcoming Encounters Date Type Specialty Care Team Description 11/15/2022 Virtual Visit Pharm Haylie Gonzalez, [facility] [address] [facility] [address] [place] [phone] (Lena max) 11/15/2022 Virtual Visit IM/Peds Yane Barraza MD [address] [facility] [address] (Lena max) 03/03/2023 Virtual Visit Neurology Erlinda Barber MD [address] [facility] 295 [place], [place] [phone] (Lena max) documented as of this encounter Procedures Procedure Name Priority Date/Time Associated Diagnosis Comme nts HCL INR POCT Routine 03/08/2010 Encounter for Long-Term Resu lts for this (Current) Use of procedure a re in the Anticoagulants results secti on. documented in this encounter Results INR POINT OF CARE (03/08/2010) P athologist Signature INR Point of 2.4 [facility] Mari Esparza MD LABORATORY Performing Organization Address City/State/ZIP Code Phon e Number [facility] documented in this encounter Visit Diagnoses Diagnosis skilled nursing (current) use of anticoagulant s - Primary Long-term (current) use of anticoagulant s documented in this encounter
--- OUTSIDE RECORDS SUMMARY | 2022-06-15 13:27 | XMS_ITS | Encounter Summary ---
:1945 Author Organization [place] Address [address] [place] [address] Care Team Providers Name Role Phone Unavailable Primary Care Provider Unavailable Reason for Visit Reason Comments Anticoagulation Encounter Details Date Type Department Care Team Description 01/25/2010 Allied Health/[facility]urse [facility] Eag an Anticoagulation Visit 14[address] [facility] [place] [phone] Social History Tobacco [...] this encounter Progress Notes Qing Guy - 01/25/2010 8:20 AM CDT ANTICOAGULATION FOLLOW-UP CLINIC VISIT Patient Name: Charlette Brush Date: 01/25/2010 SUBJECTIVE: Bleeding Signs/Symptoms: None Thromboembolic Signs/Symptoms: None Medication Changes: No Dietary Changes: No Bacterial/Viral Infection: No Missed Coumadin Doses: None Other Concerns: No ASSESSMENT/PLAN: See: ANTICOAGULATION QIC flow sheet. [facility] ANTICO[facility]ATION CLINIC Qing Guy RN documented in this encounter Nursing Notes 01/25/2010 8:00 AM CDT >> QING GUY Mon Jan 25, 2010 8:32 AM Charlette Brush presents for INR. Estimated Body mass index is 67.20 kg/(m^2) as calculated from the following: Height as of 12/11/09: 5' 6(1.676 m). Weight as of 12/11/09: 416 lb 6 oz(188.866 kg). Qing Guy RN documented in this encounter Plan of Treatment Upcoming Encounters Date Type Specialty Care Team Description 11/15/2022 Virtual Visit Pharm Haylie Gonzalez, [facility] [address] [facility] [address] [address] [place] [phone] (Lena max) 11/15/2022 Virtual Visit IM/Peds Yane Barraza MD [address] [facility] [place] [address] (Lena max) 03/03/2023 Virtual Visit Neurology Erlinda Barber MD 420 [facility] 295 [place], [place] [phone] (Lena max) documented as of this encounter Procedures Procedure Name Priority Date/Time Associated Diagnosis Comme nts HCL INR POCT Routine 01/25/2010 Encounter for Long-Term Resu lts for this (Current) Use of procedure a re in the Anticoagulants results secti on. documented in this encounter Results INR POINT OF CARE (01/25/2010) P athologist Signature INR Point of 2.4 [facility] Mari Esparza MD LABORATORY Performing Organization Address City/State/ZIP Code Phon e Number [facility] documented in this encounter Visit Diagnoses Diagnosis alf (current) use of anticoagulant s - Primary Long-term (current) use of anticoagulant s documented in this encounter
--- OUTSIDE RECORDS SUMMARY | 2022-06-15 13:27 | XMS_ITS | Encounter Summary ---
:1945 Author Organization [facility] Address [address] [place] [address] Care Team Providers Name Role Phone Unavailable Primary Care Provider Unavailable Encounter Details Date Type Department Care Team Description 12/08/2009 Orders Only [facility] Eag an Essential Hypertension, Jose Luis gn; [address] Morbid Obesity (H) [place] [phone] Social History Tobacco Use Types Packs/Day [...] Haylie Wakefield, [facility] [address] [place] [address] (Wo rk) 11/15/2022 Virtual Visit IM/Peds Yane Barraza MD [address] [facility] [place] [address] (Wo rk) 03/03/2023 Virtual Visit Neurology Erlinda Barber MD [address] [facility] 295 [place], [place] [phone] (Wo rk) documented as of this encounter Procedures Procedure Name Priority Date/Time Associated Comments Diagnosis HCL COMPREHENSIVE Routine 12/08/2009 8:06 AM Essential Resu lts for this METABOLIC PANEL CDT Hypertension, procedure a re in Benign the results section. CL AFF A.M.A. LIPID Routine 12/08/2009 8:06 AM Essential Re sults for this PANEL CDT Hypertension, procedure are in Benign the results Morbid Obesity (H) section. documented in this encounter Results (ABNORMAL) A.M.A. COMPREHENSIVE MET.PANEL (12/08/2009 8:06 AM CDT) athologist Signature Sodium 141 133 - 144 [place] mmol/L [facility] Potassium 4.0 3.4 - 5.3 [place] mmol/L [facility] Chloride 104 94 - 109 [place] mmol/L [facility] Carbon Dioxide 27 20 - 32 [place] mmol/L [facility] Anion Gap 9 6 - 17 [place] mmol/L [facility] Glucose 107 (H) 60 - 99 [place] mg/dL [facility] Urea Nitrogen 19 7 - 30 [place] mg/dL [facility] Creatinine 0.73 0.52 - [facility] 1.04 mg/dL [facility] Comment: New IDMS-traceable calibration beginning 11/15/07 GFR Estimate 81 >60 mL/min/1.7m2 [place] [facility] GFR Estimate If Black >90 >60 mL/min/1.7m2 [facility] Calcium 8.8 8.5 - 10.4 mg/dL [facility] Bilirubin Total 0.6 0.2 - 1.3 mg/dL [facility] Albumin 3.7 3.3 - 4.9 g/dL [facility] Comment: Reference range changed on 03/18. Protein Total 7.3 6.8 - 8.8 g/dL [facility] Comment: As of 07, reference range reflects plasma specimen type. Alkaline Phosphatase 106 40 - 150 U/L [facility] ALT 15 0 - 50 U/L [facility] IC LAB AST 24 0 - 45 U/L [facility] CL[facility] IC LAB Specimen Anatomical Collection Method Collection Time Receive d Time (Source) Location / / Volume Laterality 12/08/2009 8:06 AM 0 8:09 CDT AM CDT Mari Esparza MD LABORATORY Performing Organization Address [facility] Phon e Number [address] [address] [facility] (ABNORMAL) A.M.A. LIPID PANEL (12/08/2009 8:06 AM CDT) athologist Signature Cholesterol 220 (H) 0 - 200 [facility] mg/dL CLINIC LAB Comment: LDL Cholesterol is the primary guide to therapy. The NCEP recommends further evaluation of: patients with cholesterol <200 mg/dL if additional risk factors are present, cholesterol >240 mg/dL, triglycerides >150 mg/dL, or HDL <40 mg/dL. Triglycerides 337 (H) 0 - 150 mg/dL [facility] HDL Cholesterol 37 (L) 50 - 110 mg/dL [facility] LDL Cholesterol Calculated 116 0 - 129 mg/dL [facility] Comment: LDL Cholesterol is the primary guide to therapy: LDL-cholesterol goal in high risk patients is <100 mg/dL and in very high risk patients is <70 mg/dL. VLDL-Cholesterol 67 (H) 0 - 30 mg/dL [facility] Cholesterol/HDL Ratio 6.0 (H) 0.0 - 5.0 [facility] Specimen Anatomical Collection Method Collection Time Receive d Time (Source) Location / / Volume Laterality 12/08/2009 8:06 AM 0 8:09 CDT AM CDT Mari Esparza MD LABORATORY Performing Organization Address City/[facility]/ZIP Code Phon e Number [address] [address] [facility] documented in this encounter Visit Diagnoses Diagnosis Essential hypertension, benign Morbid obesity (H) Morbid obesity documented in this encounter
--- OUTSIDE RECORDS SUMMARY | 2022-06-15 13:27 | XMS_ITS | Encounter Summary ---
:1945 Author Organization [place] Address [address] [place] [address] Care Team Providers Name Role Phone Unavailable Primary Care Provider Unavailable Reason for Visit Reason Comments Anticoagulation Encounter Details Date Type Department Care Team Description 07/26/2010 Allied Health/Nurse [facility] Eag an Anticoagulation Visit [address] [...] this encounter Progress Notes Qing Guy - 07/26/2010 8:31 AM CST ANTICOAGULATION FOLLOW-UP CLINIC VISIT Patient Name: Charlette Brush Date: 07/26/2010 SUBJECTIVE: Bleeding Signs/Symptoms: None Thromboembolic Signs/Symptoms: None Medication Changes: No Dietary Changes: No Bacterial/Viral Infection: No Missed Coumadin Doses: None Other Concerns: No ASSESSMENT/PLAN: See: ANTICOAGULATION QIC flow sheet. [facility] ANT[facility] Qing Guy RN EDIENT SCALER HELPER documented in this encounter Nursing Notes 07/26/2010 8:00 AM CST >> QING GUY Mon Jul 26, 2010 8:53 AM Charlette Brush presents for INR. Estimated Body mass index is 67.20 kg/(m^2) as calculated from the following: Height as of 12/11/09: 5' 6(1.676 m). Weight as of 12/11/09: 416 lb 6 oz(188.866 kg). Qing Guy RN documented in this encounter Plan of Treatment Upcoming Encounters Date Type Specialty Care Team Description 11/15/2022 Virtual Visit Pharm Haylie Gonzalez, [facility] [address] [facility] [address] [place] [phone] (Lena max) 11/15/2022 Virtual Visit IM/Peds Yane Barraza MD [address] [facility] [place] [address] (Lena max) 03/03/2023 Virtual Visit Neurology Erlinda Barber MD 420 [facility] 295 [place], [place] [phone] (Lena max) documented as of this encounter Procedures Procedure Name Priority Date/Time Associated Diagnosis Comme nts INR POINT OF CARE Routine 07/26/2010 Encounter for long-term Results for this (current) use of procedure a re in the anticoagulants results secti on. documented in this encounter Results INR point of care (07/26/2010) P athologist Signature INR Point of 2.9 [facility] Mari Esparza MD LAB - BLOOD ORDERABLES Performing Organization Address City/State/ZIP Code Phon e Number [facility] documented in this encounter Visit Diagnoses Diagnosis Contact dermatitis and other eczema, due to unspecified cause supervisor 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s (current) use of anticoagulant s Long-term (current) use of anticoagulant s Other pulmonary embolism and infarction documented in this encounter
--- OUTSIDE RECORDS SUMMARY | 2022-06-15 13:27 | XMS_ITS | Encounter Summary ---
:1945 Author Organization [place] Address [address] [place] [address] Care Team Providers Name Role Phone Mari Esparza MD Primary Care Provider Encounter Details Date Type Department Care Team Description 03/10/2010 Office Visit-[facility] Dermatology Chastity Montero 5th Floor, Clinic 5A MD Roland Thomas[address] [place] [address] [facility] [place] [address] Social History Tobacco Use Types [...] this encounter Progress Notes Chastity Montero - 03/10/2010 8:45 AM CDT Test Specialist: Chastity Montero Status: Final - Signature Encounter: 10 Mar 2010 Type: Dermatology Visit Department of Dermatology [place] Mail Code 98 [address] [place] [address] Dermatology [facility] Fifth Floor, Clinic 5A [address] [place] [address] Appt RE: Charlette Brush : 1945 DIRK: 03/10/2010 OUTPATIENT VISIT NOTE HISTORY OF PRESENT ILLNESS: The patient is a 65-year-old female very well known to me who comes in today for followup of dermatitis. She has a history of severe allergic contact dermatitis, stasis dermatitis, and lymphedema. Dr. Schroeder did the patch testing on her many years ago. She was found to have multiple positive patch test results. Please refer to the note April 01, 2009, for discussion of these results. She reports that she feels she does continue to control her dermatitis well. She uses Vanicream as her emollient, hydrocortisone 2.5% ointment for small outbreaks, and Topicort 0.05% gel for larger areas. She does wonder about sunscreen. She has been using the Vanicream sunscreen in the past but recently this has been reformulated and she can no longer tolerate it. She has not been able to use any sunscreen this summer. She has been avoiding sun exposure physically and covering up when able. She does continue to have ongoing weight gain and severe lymphedema. She has not been able to wear her compression stockings due to difficulty getting them on despite their custom fit with probl ems slipping down. PHYSICAL EXAMINATION: The patient is a female in no acute distress. The patient was not able to be weighed by the nurse today, but her vital signs are stable. Recent workup by her primary care physician revealed a normal hemoglobin A-1C. She does have scattered, eczematous papules of the forearms. Herlower extremities have severe venous stasis changes with lymphedema, some xerosis, but no active significant dermatitis. ASSESSMENT/PLAN: 1. Severe allergic contact dermatitis. I did re-give her the letter Dr. Schroeder sent to us with her patch test allergies. She is tolerating her topical regimens well. She and I reviewed sunscreens. I do not think that there is a sunscreen on the market at this point that she could actually tolerate. She will need to continue physical methods of sun protection. Refills were given for the hydrocortisone 2.5% ointment and the Topicort 0.05% gel. Lymphedema. At this point, the patient has recently had a hemoglobin A1c. She is considering bariatric surgery for her weight gain and will be following up with her primary care physician for questionsabout her thyroid. I will plan to see her back in six months. Chastity Montero M.D. Marketing Operations Manager Department of Dermatology KB:[email or web address] Electronically signed by:Chastity Montero M.D. Mar 11 2010 10:49AM HAIR BALER documented in this encounter Plan of Treatment Upcoming Encounters Date Type Specialty Care Team Description 11/15/2022 Virtual Visit Pharm D Haylie Cheung, [facility] [address] [facility] [place] [phone] (Lena max) 11/15/2022 Virtual Visit IM/Peds Yane Barraza MD 9[address] [facility] [place] [phone] (Wo winter) 03/03/2023 Virtual Visit Neurology Erlinda Barber MD 420 [facility] 295 [place], [place] [address] (Lena max) documented as of this encounter Visit Diagnoses Not on filedocumented in this encounter Care Teams Director Of Sustainability Programs Relationship Specialty Start Date End Date Mari Esparza MD PCP - General 10/05/10 10/10/11 AYLA HUTCHINSON [address] [place] [address] documented as of this encounter
--- OUTSIDE RECORDS SUMMARY | 2022-06-15 13:27 | XMS_ITS | Encounter Summary ---
:1945 Author Organization [facility] Address [address] [place] [address] Care Team Providers Name Role Phone Mari Esparza MD Primary Care Provider Encounter Details Date Type Department Care Team Description 08/19/2009 Office Visit-[facility] DE[facility] Provider, [facility] [...] encounter Progress Notes Provider, La Nurse - 08/19/2009 9:30 AM CST Occupational Therapy Asst: Amelia Guerin Status: Final Encounter: 19 Aug 2009 Type: Rooming Note Reason For Visit CHARLETTE BRUSH (: 1945, ) is a 64 year old female coming to clinic for followup dermatitis and lymphedema. Do you have any other appointments, tests or procedures within the [facility] system for this same day? No. Pain Eval Current history of pain associated with this visit is denied. Personal Hx Behavioral history: No tobacco use. Home environment: No secondhand tobacco smoke in home. Vital Signs Recorded by Amelia Guerin on 19 Aug 2009 09:41 AM BP:145/71, RUE, Sitting, HR: 66 b/min, R Radial, Height: 67 in, Weight: 399 lb, BMI: 62.5 kg/m2. Allergies Bactroban CREA Bactroban OINT Budesonide [...] RPT. 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 documented in this encounter Plan of Treatment Upcoming Encounters Date Type Specialty Care Team Description 11/15/2022 Virtual Visit Pharm D Haylie Cheung, [facility] [address] [facility] [place] [address] (Lena max) 11/15/2022 Virtual Visit IM/Peds Yane Barraza MD [address] [facility] [place] [address] (Lena max) 03/03/2023 Virtual Visit Neurology Erlinda Barber MD 420 [facility] 295 [place] [address] (Wo rk) documented as of this encounter Visit Diagnoses Not on filedocumented in this encounter Care Teams Maintenance Foreman Relationship Specialty Start Date End Date Mari Esparza MD PCP - General 10/05/10 10/10/11 AYLA HUTCHINSON [address] [place] [address] [address] [place], [place] [phone] documented as of this encounter
--- OUTSIDE RECORDS SUMMARY | 2022-06-15 13:27 | XMS_ITS | Encounter Summary ---
:1945 Author Organization [facility] Address [address] [place] [address] Care Team Providers Name Role Phone Unavailable Primary Care Provider Unavailable Reason for Visit Reason Onset Date Comments Refill Request 07/09/2009 triamterene 37.5/ HC TZ Refill Request 07/09/2009 atenolol Encounter Details Date Type Department Care Team Description 07/09/2009 Refill [facility] clinton Esparza, Mari Sifuentes MD Refill Request 14[address] [facility] JOYCE CAMPBELLROSE (triamterene 37.5/ [place] [phone] [place] [address] DR [address]ANCE); Refill Request [phone] [place], [place] (atenol ol) [address] (Wo rk) Social History Tobacco Use [...] Notes Telephone Encounter - Dana Nettles - 07/09/2009 8:55 AM CST Pharmacy refill request Triamterene 37.5/HCTZ, atenolol Date Last refilled 04/08/09 Last office visit 01/08/09 px BP 124/74 Last lab pertaining to med 12/29/08 Will refill per protocol. Pt coming in for INR 08/13/2009 will askpt to have BP checked at that visit. Dana Nettles RN TENANCE JOB TITLES documented in this encounter Plan of Treatment Upcoming Encounters Date Type Specialty Care Team Description 11/15/2022 Virtual Visit Pharm D Haylie Cheung, [facility] [address] [facility] [address] [place], [place] [phone] (Wo rk) 11/15/2022 Virtual Visit IM/Yane Mathias MD [address] [facility] [place] [address] (Wo rk) 03/03/2023 Virtual Visit Neurology Erlinda Barber MD 420 [facility] 295 [place], [place] [phone] (Wo rk) documented as of this encounter Visit Diagnoses Diagnosis Essential hypertension, benign documented in this encounter
--- OUTSIDE RECORDS SUMMARY | 2022-06-15 13:28 | XMS_ITS | Encounter Summary ---
:1945 Author Organization [facility] Address [address] [place] [address] Care Team Providers Name Role Phone Unavailable Primary Care Provider Unavailable Reason for Visit Reason Comments Anticoagulation Encounter Details Date Type Department Care Team Description 01/26/2009 Allied Health/Nurse [facility] Eag an Anticoagulation Visit [address] [place] [...] - Inhaled Oxygen Concentration - - Weight 179.2 kg (395 lb) 01/26/2009 8:05 AM CDT Height - - Body Mass Index 61.87 01/08/2009 9:35 AM CDT documented in this encounter Progress Notes Qing Guy - 01/26/2009 8:19 AM CDT ANTICOAGULATION FOLLOW-UP CLINIC VISIT Patient Name: Charlette Brush Date: 01/26/2009 SUBJECTIVE: Bleeding Signs/Symptoms: None Thromboembolic Signs/Symptoms: None Medication Changes: Prozac discontinued 01/08/09. Concurrent use of FLUOXETINE and ANTICOAGULANTS mayresult in an increased risk of bleeding per [employer]ed[employer].. Dietary Changes: No Bacterial/Viral Infection: No Missed Coumadin Doses: None Other Concerns: No She has lost 5# since starting lymphadema treatment. ASSESSMENT/PLAN: See: ANTICOAGULATION QIC flow sheet. [facility] ANTICO[facility]INIC Qing Guy RN documented in this encounter Nursing Notes 01/26/2009 8:00 AM CDT >> QING GUY Mon Jan 26, 2009 8:24 AM Charlette Brush presents for INR. Estimated Body mass index is 61.87 kg/(m^2) as calculated from: Height of 5' 7 (1.702 m) as of 01/08/09 Weight of 395 lb (179.171 kg) as of this encounter Qing Guy RN documented in this encounter Plan of Treatment Upcoming Encounters Date Type Specialty Care Team Description 11/15/2022 Virtual Visit Pharm D Haylie Cheung, [facility] [address] [facility] [place] [address] (Lena max) 11/15/2022 Virtual Visit IM/Peds Yane Barraza MD [address] [facility] [address] [facility] [place] [address] (Lena max) 03/03/2023 Virtual Visit Neurology Erlinda Barber MD 420 [facility] 295 [place], [place] [address] (Lena max) documented as of this encounter Procedures Procedure Name Priority Date/Time Associated Diagnosis Comme nts HCL INR POCT Routine 01/26/2009 Encounter for Long-Term Resu lts for this (Current) Use of procedure a re in the Anticoagulants results secti on. documented in this encounter Results INR POINT OF CARE (01/26/2009) P athologist Signature INR Point of 2.5 [facility] Mari Esparza MD LABORATORY Performing Organization Address City/State/ZIP Code Phon e Number [facility] documented in this encounter Visit Diagnoses Diagnosis longterm (current) use of anticoagulant s Long-term (current) use of anticoagulant s documented in this encounter
--- OUTSIDE RECORDS SUMMARY | 2022-06-15 13:28 | XMS_ITS | Encounter Summary ---
:1945 Author Organization [place] Address [address] [place] [address] Care Team Providers Name Role Phone Unavailable Primary Care Provider Unavailable Reason for Visit Reason Onset Date Comments Refill Request 10/14/2008 atenolol and triam/h ctz Encounter Details Date Type Department Care Team Description 10/14/[address] [facility] Collette Esparza, Mari Sifuentes MD Refill Request 1440 [facility] JOYCE HUTCHINSON (atenolol and [place]oyo [phone] [facility] KJ montejo/hctz) [phone] [place] [address] (Wo rk) Social History Tobacco [...] Notes Telephone Encounter - Susie Murphy - 10/14/2008 2:05 PM CDT Date last filled: 09-11-08 Date of last OV: 08-29-08 BP: 110/78 Date of last labs pertaining to med: 03-31-08 Refilled per standing order. Susie Murphy RN documented in this encounter Plan of Treatment Upcoming Encounters Date Type Specialty Care Team Description 11/15/2022 Virtual Visit Pharm D Haylie Cheung K sunday Rojas, [facility] [address] [facility] [place] [address] (Lena max) 11/15/2022 Virtual Visit IM/Yane Mathias MD [address] [facility] [place] [address] (Lena max) 03/03/2023 Virtual Visit Neurology Erlinda Barber MD 420 [facility] [address] [place] [address] (Lena max) documented as of this encounter Visit Diagnoses Diagnosis Essential hypertension, benign documented in this encounter
--- OUTSIDE RECORDS SUMMARY | 2022-06-15 13:28 | XMS_ITS | Encounter Summary ---
:1945 Author Organization [place] Address [address] [place] [address] Care Team Providers Name Role Phone Mari Esparza MD Primary Care Provider Encounter Details Date Type Department Care Team Description 12/01/2008 Office Visit-[facility] Dermatology Chastity Montero 5th Floor, Clinic 5A MD Roland Thomas[address] [place] [address] [facility] [address] Social History Tobacco Use Types [...] this encounter Progress Notes Chastity Montero - 12/01/2008 9:15 AM CDT Software Development Leader: Chastity Montero Status: Final - Signature Encounter: 01 Dec 2008 Type: Dermatology Visit Department of Dermatology [place] Mail Code 98 420 [place] [address] Dermatology Clinic [facility] Fifth Floor, Clinic 5A [address] [place] [address] Appt RE: Charlette Brush : 1945 DIRK: 12/01/2008 OUTPATIENT VISIT NOTE HISTORY OF PRESENT ILLNESS: The patient is a pleasant, 63-year-old female who returns today with a history of severe allergic contact dermatitis, stasis dermatitis, and lymphedema. She has positive patch testing to Bactroban, Moisturel, Nutraderm, clotrimazole, budesonide, bacitracin; mild reactions to Aveeno, hydrocortisone cream, Elidel cream, balsam of Clarissa, and benzoyl alcohol; and doubtful reactions to Vanicream Light, Umbrel, L'Oreal, Wal-Sporin ointment, Suave shampoo, Bactroban ointment, paraben mix, and benzoyl peroxide. The patient's skin has been generally doing well. She uses Vanicream once to twice daily as well as Topicort gel and hydrocortisone 2.5% ointment as needed to affected areas. She states her skin is doing better now that the weather is becoming warmer, and has not needed to use the steroid more recently. The patient did have a fall in her house on August 26 with significant bruising, more prominently on her right lower leg. She did not have any breakdown of her skin with this, but notes that she is having approximately 5 to 10 percent increased swelling in her distalright lower extremity as well as some increased redness. The patient states she is otherwise well. She denies any fevers, chills, night sweats, nausea, vomiting, or diarrhea. She does try to keep her le gs elevated for some time during the day. She has been to the Lymphedema Clinic in the past and did find that it was helpful for the swelling, but she found it difficult to maintain the improvements athome as a compression garment does not fit her leg very well. She is otherwise well and denies any other complaints today. PHYSICAL EXAMINATION: General: The patient is a well-appearing female who is alert and oriented x3, and in no acute distress, exhibiting Andre skin type I. Her height is 5' 7, weight is 411 pounds. Blood pressure is 143/67, pulse is 72. Full skin examination was performed except for genitals, it includes the scalp, face, neck, chest, abdomen, back, bilateral upper extremities and bilateral lower extremities. Her skin is in good condition. There are lymphedematous changes over the bilateral distal lower extremities with some increased swelling on the right side compared to the left as well as some increased erythema on that side. The skin is not warm to the touch. There is no tenderness to palpation. There are no open areas. ASSESSMENT/PLAN: 1. Severe contact dermatitis. The patient will continue with Vanicream and use Topicort gel and hydrocortisone 2.5% ointment as needed. Stasis dermatitis and lymphedema. The patient's symptoms have worsened following her fall, therefore, we recommended she go for a course of treatment at the Lymphedema Clinic as the massage and manual lymphatic drainage may help loosen any scar tissue and help get the extra fluid off of her right lower extremity. We will see the patient back in clinic in four months for follow-up. We counseled her to call if shehas any concerns in the meantime. Chastity Montero M.D. Support Dba Department of Dermatology Dictated by Virgen Zepeda MD, PhD Dermatology Resident KB:[email or web address] I have personally examined the patient, reviewed and edited the resident's note and agree with the plan of care Electronically signed by:Chastity Montero M.D. Dec 03 2008 9:30AM BUSINESS OFFICE REPRESENTATIVE documented in this encounter Plan of Treatment Upcoming Encounters Date Type Specialty Care Team Description 11/15/2022 Virtual Visit Pharm Haylie Gonzalez, [facility] [address] [place] [address] (Wo rk) 11/15/2022 Virtual Visit IM/Peds Yane Barraza MD [address] [facility] [address] [place], [place] [phone] (Wo rk) 03/03/2023 Virtual Visit Neurology Erlinda Barber MD 420 [facility] [address] [place] [address] (Wo rk) documented as of this encounter Visit Diagnoses Not on filedocumented in this encounter Care Teams Fire Behavior Analyst Relationship Specialty Start Date End Date Mari Esparza MD PCP - General 10/05/10 10/10/11 AYLA HUTCHINSON [address] [place] [address] [address] [place] [phone] documented as of this encounter
--- OUTSIDE RECORDS SUMMARY | 2022-06-15 13:28 | XMS_ITS | Encounter Summary ---
:1945 Author Organization [facility] Address [address] [place] [address] Care Team Providers Name Role Phone Unavailable Primary Care Provider Unavailable Reason for Visit Reason Comments Anticoagulation Encounter Details Date Type Department Care Team Description 09/22/2008 Allied Health/Nurse [facility] Eag an Anticoagulation Visit 1440 [place] [...] - Inhaled Oxygen Concentration - - Weight 182.8 kg (403 lb 1.6 oz) 09/22/2008 8:00 AM CDT Height - - Body Mass Index 63.61 08/29/2008 1:45 PM NUTRITIONAL CHEMIST documented in this encounter Progress Notes Qing Guy - 09/22/2008 8:16 AM CDT ANTICOAGULATION FOLLOW-UP CLINIC VISIT Patient Name: Charlette Brush Date: 09/22/2008 SUBJECTIVE: Bleeding Signs/Symptoms: Fell 1 month ago onto right knee. No fracture. Resolving bruise. Thromboembolic Signs/Symptoms: None Medication Changes: No Dietary Changes: No Bacterial/Viral Infection: No Missed Coumadin Doses: None Other Concerns: No ASSESSMENT/PLAN: See: ANTICOAGULATION QIC flow sheet. ANTICOAGULATION CLINIC Qing Guy RN documented in this encounter Nursing Notes 09/22/2008 8:00 AM CDT >> QING GUY Mon Sep 22, 2008 8:34 AM Charlette Brush presents for INR. Estimated Body mass index is 63.61 kg/(m^2) as calculated from: Height of 5' 6.75 (1.695 m) as of 08/29/08 Weight of 403 lb 1.6 oz (182.845 kg) as of this encounter Qing Guy RN documented in this encounter Plan of Treatment Upcoming Encounters Date Type Specialty Care Team Description 11/15/2022 Virtual Visit Pharm D Haylie Cheung, [facility] 14[address] [facility] [place] [phone] (Lena max) 11/15/2022 Virtual Visit [place] [address] [place] [address] [place] [phone] (Lena max) 03/03/2023 Virtual Visit Neurology Erlinda Barber MD 420 [facility] 295 [place], [place] [phone] (Lena max) documented as of this encounter Procedures Procedure Name Priority Date/Time Associated Diagnosis Comme nts HCL INR POCT Routine 09/22/2008 Encounter for Long-Term Resu lts for this (Current) Use of procedure a re in the Anticoagulants results secti on. 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
--- OUTSIDE RECORDS SUMMARY | 2022-06-15 13:28 | XMS_ITS | Encounter Summary ---
:1945 Author Organization [place] Address [address] [place] [address] Care Team Providers Name Role Phone Unavailable Primary Care Provider Unavailable Reason for Visit Reason Comments Urgent Care Trauma Injured both knees in fall 0 08/26/08. Right knee is worse than left. Encounter Details Date Type Department Care Team Description 08/27/2008 Office Visit [facility] Alberto Parra Leg Injury (Primary Dx) Urgent Care [address] [address] [phone] Social History Tobacco Use Types Packs/Day Years [...] Sign Reading Time Taken Comments Blood Pressure 120/84 08/27/2008 1:15 PM PULLMAN CONDUCTOR Pulse 80 08/27/2008 1:15 PM PULLMAN CONDUCTOR Temperature 36.2 ??C (97.1 ??F) 08/27/2008 1:15 PM PULLMAN CONDUCTOR Respiratory Rate 18 08/27/2008 1:15 PM PULLMAN CONDUCTOR Oxygen Saturation - - Inhaled Oxygen Concentration - - Weight 180.5 kg (398 lb) 08/27/2008 1:15 PM PULLMAN CONDUCTOR Height - - Body Mass Index 63.75 03/31/2008 8:30 AM CDT documented in this encounter Progress Notes Alberto Parra - 08/27/2008 1:21 PM CST Pt triaged to ED for injury with large amount of swelling RLE. She is on coumadine and has pain. Concern for r/o compartment syndrom with the pain and large swelling. MAN CONDUCTOR documented in this encounter Nursing Notes 08/27/2008 1:15 PM CST >> HARPER PALOMINO Wed Aug 27, 2008 1:13 PM Patient presents with: Urgent Care Trauma - Injured both knees in fall 08/26/08. Right knee is worse than left. Intial BP 120/84 Pulse 80 Temp (Src) 97.1 ??F (36.2 ??C) (Oral) Resp 18 Wt 398 lb (180.532 kg) LMP Postmenopausal Estimated Body mass index is 63.75 kg/(m^2) as calculated from: Height of 5' 6.25 (1.683 m) as of 03/31/08 Weight of 398 lb (180.532 kg) as of this encounter. BP completed using cuff size: regular Harper Palomino RN documented in this encounter Plan of Treatment Upcoming Encounters Date Type Specialty Care Team Description 11/15/2022 Virtual Visit Pharm Haylie Gonzalez, [facility] 14[address] [facility] [place] [address] (Wo rk) 11/15/2022 Virtual Visit IM/Peds Yane Barraza MD [address] [facility] [place] [address] (Wo rk) 03/03/2023 Virtual Visit Neurology Erlinda Barber MD [address] [address] (Wo rk) documented as of this encounter Visit Diagnoses Diagnosis Leg injury - Primary Injury, other and unspecified, knee, leg , ankle, and foot documented in this encounter
--- OUTSIDE RECORDS SUMMARY | 2022-06-15 13:28 | XMS_ITS | Encounter Summary ---
:1945 Author Organization [place] Address [address] [place] [address] Care Team Providers Name Role Phone Unavailable Primary Care Provider Unavailable Reason for Visit Reason Comments Anticoagulation Encounter Details Date Type Department Care Team Description 11/17/2008 Allied Health/Nurse [facility] Eag an Anticoagulation Visit 1440 [employer] [...] - Inhaled Oxygen Concentration - - Weight 186.4 kg (411 lb) 11/17/2008 8:17 AM CDT Height - - Body Mass Index 64.85 08/29/2008 1:45 PM TWILL CUTTER documented in this encounter Progress Notes Qing Guy - 11/17/2008 8:48 AM CDT ANTICOAGULATION FOLLOW-UP CLINIC VISIT Patient Name: Charlette Brush Date: 11/17/2008 SUBJECTIVE: Bleeding Signs/Symptoms: None Thromboembolic Signs/Symptoms: None Medication Changes: Taking more tylenol - up to 6 tabs per day. Dietary Changes: Eating less greens Bacterial/Viral Infection: No Missed Coumadin Doses: None Other Concerns: Right knee swollen since fall in August. ASSESSMENT/PLAN: See: ANTICOAGULATION QIC flow sheet. ANTICOAGULATION CLINIC Qing Guy RN documented in this encounter Nursing Notes 11/17/2008 8:45 AM CDT >> QING GUY Mon November 17, 2008 8:50 AM Charlette Brush presents for INR. Estimated Body mass index is 64.85 kg/(m^2) as calculated from: Height of 5' 6.75 (1.695 m) as of 08/29/08 Weight of 411 lb (186.428 kg) as of this encounter Qing Guy RN documented in this encounter Plan of Treatment Upcoming Encounters Date Type Specialty Care Team Description 11/15/2022 Virtual Visit Pharm D Haylie Cheung, [facility] 14[address] [facility] [place] [phone] (Lena max) 11/15/2022 Virtual Visit [place] [address] [place] [address] [place] [phone] (Lena max) 03/03/2023 Virtual Visit Neurology Erlinda Barber MD 420 [facility] 295 [place], [place] [phone] (Lena max) documented as of this encounter Procedures Procedure Name Priority Date/Time Associated Diagnosis Comme nts HCL INR POCT Routine 11/17/2008 Encounter for Long-Term Resu lts for this (Current) Use of procedure a re in the Anticoagulants results secti on. 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
--- OUTSIDE RECORDS SUMMARY | 2022-06-15 13:28 | XMS_ITS | Encounter Summary ---
:1945 Author Organization [place] Address [address] [place] [address] Care Team Providers Name Role Phone Unavailable Primary Care Provider Unavailable Reason for Visit Reason Onset Date Comments Refill Request 11/10/2008 fluoxetine Encounter Details Date Type Department Care Team Description 11/10/2008 Refill [facility] Mari Beard MD Refill Request 1440 [facility] JOYCE HUTCHINSON (fluoxetine) [place] [phone] [address] [phone] [place] [address] (Wo rk) Social History Tobacco [...] Notes Telephone Encounter - Susie Murphy - 11/10/2008 3:58 PM CDT Date last filled: 10-13-08 Date of last OV: 08-29-08 No PHQ9 done Last px: 10-03-06 Refilled per standing order x1 asking pt to schedule a px. Susie Murphy RN documented in this encounter Plan of Treatment Upcoming Encounters Date Type Specialty Care Team Description 11/15/2022 Virtual Visit Pharm D Haylie Cheung, [facility] [address] [facility] [place] [address] (Wo rk) 11/15/2022 Virtual Visit [place] [address] [place] [address] [address] [place] [phone] (Wo rk) 03/03/2023 Virtual Visit Neurology Erlinda Barber MD 420 [facility] [address] [place] [address] (Wo rk) documented as of this encounter Visit Diagnoses Diagnosis Morbid obesity (H) Morbid obesity documented in this encounter
--- OUTSIDE RECORDS SUMMARY | 2022-06-15 13:28 | XMS_ITS | Encounter Summary ---
:1945 Author Organization [place] Address [address] [place] [address] Care Team Providers Name Role Phone Unavailable Primary Care Provider Unavailable Reason for Visit Reason Comments Radiology Visit Encounter Details Date Type Department Care Team Description 03/09/2009 Orders Only [facility] Spe cial Screening for Marine Osteoporosis (Primary Dx) [address] [facility] [address] [place] [address] Social History Tobacco Use Types Packs/Day Years [...] Visit Haylie Wakefield, [facility] [address] [facility] [address] (Wo rk) 11/15/2022 Virtual Visit IM/Peds Yane Barraza MD [address] [facility] [place] [address] (Wo rk) 03/03/2023 Virtual Visit Neurology Erlinda Barber MD [address] [facility] [address] [place] [address] (Wo rk) documented as of this encounter Procedures Procedure Name Priority Date/Time Associated Diagnosis Comme nts DEXA BONE DENSITY, Routine 03/09/2009 Special Screening f or Results for this >=1 SITE, AXIAL Osteoporosis procedure ar e in the [place] results section . documented in this encounter Results DEXA,BONE DENSITY,AXIAL [place] (03/09/2009) Anatomical Region Laterality Modality Bone Mineral Density Impressions 03/09/2009 BONE DENSITOMETRY [facility] March 09, 2009 PATIENT: [facility] CHART: <[id number]> : ??1945 AGE: ??64 year old SEX: ??female REFERRING PHYSICIAN: ??Mari Esparza MD, PROCEDURE: ??Bone density scanning was p erformed using DEXA technology performed on a CodersClan Scanner. ??Reporting is completed in the form of a T-score. ??Th e T-score represents the standard deviation from peak bone mass b ased on a young healthy adult. Insurance Attorney performing scan: ??Dana browning REFERENCE T-SCORES: ? Normal ?-1.0 and greater ? Osteopenia ?Less than -1.0 and great er than -2.5 Osteoporosis ?? -2.5 and less ? INDICATIONS: ??Post-menopausal CURRENT TREATMENT: ??None listed FINDINGS: ? Distal forearm: T-score 1.5 ? The patient exceeds wieght limits of the machine, so only forearm can be performed. IMPRESSION: Normal bone mineral density. Recommendations include ensuring adequat e Calcium (1200 mg/d) and Vitamin D ( 800 IU/d). NOF Guidelines recommend treatment for p atients with a T-score of -1.5 and below with risk factors or -2.0 and below without risk factors. Follow up can be considered in 3 years. For patients eligible for Medicare, routine testing is allowed onc e every two years. The testing frequency can be increased to on e year for patients who have rapidly progressing disease, those who are receiving or discontinuing medical therapy to restore bone mass, or have additional risk factors. Latia Hagan M.D. Electronically signed Mari Esparza MD SPECIAL IMAGING STUDIES documented in this encounter Visit Diagnoses Diagnosis Special screening for osteoporosis - Jessica knight documented in this encounter
--- OUTSIDE RECORDS SUMMARY | 2022-06-15 13:28 | XMS_ITS | Encounter Summary ---
:1945 Author Organization [place] Address [address] [place] [address] Care Team Providers Name Role Phone Mari Esparza MD Primary Care Provider Encounter Details Date Type Department Care Team Description 04/01/2009 Office Visit-[facility] Dermatology Chastity Montero 5th Floor, Clinic 5A MD Roland Thomas[address] [place] [address] [facility] [place] [address] Social History Tobacco Use Types [...] this encounter Progress Notes Chastity Montero - 04/01/2009 8:30 AM CDT Currency Examiner: Chastity Montero Status: Final - Signature Encounter: 01 Apr 2009 Type: Dermatology Visit Department of Dermatology [place] Mail Code 98 420 [place] [address] Dermatology Clinic [facility] Fifth Floor, Clinic 5A [address] [place] [address] Appt RE: Charlette Brush : 1945 DIRK: 04/01/2009 OUTPATIENT VISIT NOTE SUBJECTIVE: The patient is a 64-year-old female here for followup of her severe allergic contact dermatitis, her stasis dermatitis and her lymphedema. She has had positive patch testing to Bactroban, ___, Neutraderm, clotrimazole, budesonide, bacitracin. Mild reactions to Aveeno, hydrocortisone cream,Elidel cream, Balsam of Clarissa and benzoyl alcohol and doubtful reactions to Vanicream Lite, Ombrelle,Jenni, __, Suave, Bactroban, Parabens and benzoyl peroxide. Her contact dermatitis has been doing well as she uses only Vanicream, hydrocortisone 2.5% ointment and Topicort gel to affected areas as needed. She is also quite obese and has lymphedema and stasis dermatitis. She has been to see the Lymphedema Clinic. They were doing wraps. However, it was too warm during the summer. She hopes to continue these in the fall, as she did find that they are helpful. She currently wears compression hose whenshe can, but the rubber area at the top of the hose tends to give her irritant dermatitis. She uses Topicort and Vanicream to affected areas of her stasis dermatitis as needed. Overall, she feels that things are doing fairly well. On review of systems, she is otherwise feeling well, no other skin complaints. PHYSICAL EXAMINATION: In general, she is alert and oriented in no acute distress, well-appearing, obese. Vital signs: Her weight is in excess of 400 pounds today. Her blood pressure is 138/75, her pulse is 72. Skin exam: A full body skin exam performed today with no abnormalities except as follows: Lym phedema and stasis dermatitis bilaterally. Andre skin type I. Numerous ephilides. ASSESSMENT/PLAN: 1. Severe contact dermatitis. Continue to avoid known sensitizers. Continue Vanicream and Topicort gel and hydrocortisone 2.5% ointment as needed. Stasis dermatitis and lymphedema. We will have her call the Lymphedema Clinic this fall for more aggressive wraps to try to get her lymphedema under better control. We did stress that she should try towear her support hose as tolerated. If she is getting a bad irritant dermatitis or possibly contact dermatitis from the rubber areas on the hose, she may investigate getting other types of compression hose. Return to clinic in four to six months Chastity Montero M.D. Heat Treater Apprentice Department of Dermatology Dictated by Sergo Carl M.D. Dermatology Resident [email or web address] I have personally examined the patient, reviewed and edited the resident's note and agree with the plan of care Electronically signed by:Chastity Montero M.D. Apr 02 2009 8:25AM PROGRAM ADMINISTRATOR documented in this encounter Plan of Treatment Upcoming Encounters Date Type Specialty Care Team Description 11/15/2022 Virtual Visit Pharm Haylie Gonzalez, [facility] 1440 [facility] [place] [address] (Lena max) 11/15/2022 Virtual Visit IM/Peds Yane Barraza MD [address] [facility] [place] [address] (Lena max) 03/03/2023 Virtual Visit Neurology Erlinda Barber MD 420 [facility] [address] [place] [address] (Lena max) documented as of this encounter Visit Diagnoses Not on filedocumented in this encounter Care Teams Guest Experience Captain Relationship Specialty Start Date End Date Mari Esparza MD PCP - General 10/05/10 10/10/11 AYLA HUTCHINSON [address] [facility] [place] [address] documented as of this encounter
--- OUTSIDE RECORDS SUMMARY | 2022-06-15 13:28 | XMS_ITS | Encounter Summary ---
:1945 Author Organization [place] Address [address] [place] [address] Care Team Providers Name Role Phone Unavailable Primary Care Provider Unavailable Reason for Visit Reason Comments Anticoagulation Encounter Details Date Type Department Care Team Description 10/20/2008 Allied Health/Nurse [facility] Eag an Anticoagulation Visit [address] [facility] [place] [phone] Social History Tobacco [...] - Inhaled Oxygen Concentration - - Weight 181.9 kg (401 lb 1.6 oz) 10/20/2008 8:14 AM CDT Height - - Body Mass Index 63.29 08/29/2008 1:45 PM SOLUTIONS ARCHITECT documented in this encounter Progress Notes Qing Guy - 10/20/2008 8:50 AM CDT ANTICOAGULATION FOLLOW-UP CLINIC VISIT Patient Name: Charlette Brush Date: 10/20/2008 SUBJECTIVE: Bleeding Signs/Symptoms: None Thromboembolic Signs/Symptoms: None Medication Changes: No Dietary Changes: No Bacterial/Viral Infection: No Missed Coumadin Doses: None Other Concerns: No ASSESSMENT/PLAN: See: ANTICOAGULATION QIC flow sheet. EA ANTICOAGULATION CLINIC Qing Guy RN documented in this encounter Nursing Notes 10/20/2008 8:00 AM CDT >> QING GUY Mon Oct 20, 2008 8:51 AM Charlette Stilessevennithin presents for INR. Estimated Body mass index is 63.29 kg/(m^2) as calculated from: Height of 5' 6.75 (1.695 m) as of 08/29/08 Weight of 401 lb 1.6 oz (181.938 kg) as of this encounter Qing Guy RN documented in this encounter Plan of Treatment Upcoming Encounters Date Type Specialty Care Team Description 11/15/2022 Virtual Visit Pharm Haylie Gonzalez, [facility] [address] [facility] [place] [address] (Lena max) 11/15/2022 Virtual Visit [place] [address] [place] [address] [place] [phone] (Lena max) 03/03/2023 Virtual Visit Neurology Erlinda Barber MD [address] [facility] [address] [place], [place] [phone] (Lena max) documented as of this encounter Procedures Procedure Name Priority Date/Time Associated Diagnosis Comme nts HCL INR POCT Routine 10/20/2008 Encounter for Long-Term Resu lts for this (Current) Use of procedure a re in the Anticoagulants results secti on. documented in this encounter Results INR POINT OF CARE (10/20/2008) P athologist Signature INR Point of 2.7 [facility] Mari Esparza MD LABORATORY Performing Organization Address City/State/ZIP Code Phon e Number [facility] documented in this encounter Visit Diagnoses Diagnosis halfway (current) use of anticoagulant s Long-term (current) use of anticoagulant s documented in this encounter
--- OUTSIDE RECORDS SUMMARY | 2022-06-15 13:28 | XMS_ITS | Encounter Summary ---
:1945 Author Organization [place] Address [address] [place] [address] Care Team Providers Name Role Phone Unavailable Primary Care Provider Unavailable Reason for Visit Reason Onset Date Comments Knee Pain 08/28/2008 f/u ER visit Encounter Details Date Type Department Care Team Description 08/28/2008 Telephone [facility] Eag Mari Larsen, Knee Pain (f/u ER [address] [facility] visit) [place] [phone] AYLA COOK [phone] [address] [address] [place] [address] (Wo rk) Social [...] Notes Telephone Encounter - Dana Nettles - 08/28/2008 8:40 AM CST Pt was going for a ringing phone and fell in her home and injured knee. Right knee still swollen looks like a purple half basketball. Was seen in ER 08/27 and is to f/u . Pain level is manageable today. Will make appt for f/u on 08/29/08. Dana Nettles RN UNT EXECUTIVE documented in this encounter Plan of Treatment Upcoming Encounters Date Type Specialty Care Team Description 11/15/2022 Virtual Visit Pharm D Haylie Cheung, [facility] [address] [facility] [place] [address] (Lena max) 11/15/2022 Virtual Visit IM/Peds Yane Barraza MD [address] [facility] [place] [address] (Lena max) 03/03/2023 Virtual Visit Neurology Erlinda Barber MD [address] [facility] [address] [place] [address] (Lena max) documented as of this encounter Visit Diagnoses Not on filedocumented in this encounter
--- OUTSIDE RECORDS SUMMARY | 2022-06-15 13:28 | XMS_ITS | Encounter Summary ---
:1945 Author Organization [place] Address [address] [place] [address] Care Team Providers Name Role Phone Mari Esparza MD Primary Care Provider Encounter Details Date Type Department Care Team Description 01/09/2009 Office Visit-[facility] Dermatology Provider, [facility] Nurse 5th Floor, Clinic [address] [place] [address] [phone] Social History Tobacco Use Types Packs/Day [...] encounter Progress Notes Provider, La Nurse - 01/09/2009 2:22 PM CDT Heel Coverer Machine Operator: Amelia Guerin Status: Signed Encounter: 09 Jan 2009 Type: Dermatology Chart Note Recorded as Task Date: 01/09/2009 02:22 PM, Created By: Amelia Guerin Task Name: Follow Up Assigned To: Amelia Guerin Regarding Patient: MARZENA BRUSH, Status: Active Comment: Amelia Guerin - 09 Jan 2009 2:22 PM TASK CREATED Caller: Self; Symptomatic; ; Hi Virgen, Ms. Brush left a message on the triage line stating she has started itching. She reported she hashives on her shoulder blades, waiste and back. Ms. Brush left her work phone number for contact until 4:00 and then her home phone number. Thank you, VIRGEN Garcia - 12 Jan 2009 9:34 AM TASK REPLIED TO: Previously Assigned To VIRGEN MALDONADO Left voice messages for patient on both 01/09 (left callback # and personal pager) and 01/12; have notheard back from her. Advised her to call the triage line if she has questions/concerns. Electronically signed by:Amelia Guerin R.N. Jan 13 2009 4:15PM PLUMBING ENGINEERING DRAFTSPERSON Provider, [facility] Nurse - 01/09/2009 2:22 PM CDT Heel Coverer Machine Operator: Amelia Guerin Status: Signed Encounter: 09 Jan 2009 Type: Dermatology Chart Note Date: 09 Jan 2009 2:19 PM PLUMBING ENGINEERING DRAFTSPERSON, Recorded By: Amelia Guerin Calling For: VIRGEN MALDONADO Caller: AVANIMARYMARZENA Lipscomb, Self (Home), Reason: Symptomatic Ms. Brush left a message on the triage line stating she has started itching. She reported she hashives on her shoulder blades, waist and back. Ms. Brush left her work phone number for contact until 4:00 and then her home phone number. Electronically signed by:Amelia Guerin R.N. Jan 09 2009 2:22PM PLUMBING ENGINEERING DRAFTSPERSON documented in this encounter Plan of Treatment Upcoming Encounters Date Type Specialty Care Team Description 11/15/2022 Virtual Visit Pharm D Haylie Cheung, [facility] [address] [facility] [address] [place], [place] [phone] (Wo rk) 11/15/2022 Virtual Visit IM/Peds Yane Barraza MD [address] [facility] [address] [place], [place] [phone] (Wo rk) 03/03/2023 Virtual Visit Neurology Erlinda Barber MD 420 [facility] [address] [place] [address] (Wo rk) documented as of this encounter Visit Diagnoses Not on filedocumented in this encounter Care Teams Construction Technology Instructor Relationship Specialty Start Date End Date Mari Esparza MD PCP - General 10/05/10 10/10/11 AYLA HUTCHINSON [address] [place] [address] [place] [phone] documented as of this encounter
--- OUTSIDE RECORDS SUMMARY | 2022-06-15 13:28 | XMS_ITS | Encounter Summary ---
:1945 Author Organization [facility] Address [address] [place] [address] Care Team Providers Name Role Phone Unavailable Primary Care Provider Unavailable Reason for Visit Reason Comments Anticoagulation Encounter Details Date Type Department Care Team Description 04/06/2009 Allied Health/Nurse [facility] Eag an Anticoagulation Visit 14[address] [facility] [...] - Inhaled Oxygen Concentration - - Weight 183.3 kg (404 lb 3.2 oz) 04/06/2009 8:11 AM CDT Height - - Body Mass Index 63.31 01/08/2009 9:35 AM CDT documented in this encounter Progress Notes Qing Guy - 04/06/2009 8:24 AM CDT ANTICOAGULATION FOLLOW-UP CLINIC VISIT Patient Name: Charlette Brush Date: 04/06/2009 SUBJECTIVE: Bleeding Signs/Symptoms: None Thromboembolic Signs/Symptoms: None Medication Changes: No Dietary Changes: No Bacterial/Viral Infection: No Missed Coumadin Doses: None Other Concerns: No ASSESSMENT/PLAN: See: ANTICOAGULATION QIC flow sheet. EA ANTICOAGULATION CLINIC Qing Guy RN documented in this encounter Nursing Notes 04/06/2009 8:00 AM CDT >> QING GUY Mon Apr 06, 2009 8:55 AM Charlette Brush presents for INR. Estimated Body mass index is 63.31 kg/(m^2) as calculated from: Height of 5' 7 (1.702 m) as of 01/08/09 Weight of 404 lb 3.2 oz (183.344 kg) as of this encounter Qing Guy RN documented in this encounter Plan of Treatment Upcoming Encounters Date Type Specialty Care Team Description 11/15/2022 Virtual Visit Pharm Haylie Gonzalez, [facility] [address] [facility] [place] [address] (Lena max) 11/15/2022 Virtual Visit IM/Peds Yane Barraza MD [address] [facility] [place] [phone] (Lena max) 03/03/2023 Virtual Visit Neurology Erlinda Barber MD 420 [facility] [address] [place] [address] (Lena max) documented as of this encounter Procedures Procedure Name Priority Date/Time Associated Diagnosis Comme nts HCL INR POCT Routine 04/06/2009 Encounter for Long-Term Resu lts for this (Current) Use of procedure a re in the Anticoagulants results secti on. documented in this encounter Results INR POINT OF CARE (04/06/2009) P athologist Signature INR Point of 1.9 [facility] Mari Esparza MD LABORATORY Performing Organization Address City/State/ZIP Code Phon e Number [facility] documented in this encounter Visit Diagnoses Diagnosis rodent exterminator (current) use of anticoagulant s - Primary Long-term (current) use of anticoagulant s documented in this encounter
--- OUTSIDE RECORDS SUMMARY | 2022-06-15 13:28 | XMS_ITS | Encounter Summary ---
:1945 Author Organization [place] Address [address] [place] [address] Care Team Providers Name Role Phone Unavailable Primary Care Provider Unavailable Encounter Details Date Type Department Care Team Description 08/27/2008 Emergency room [facility] Arnel Ace MD Hospital Results EMERGENCY PHYSI DAVEY ROSARIO [address] [place], [place] [address] (Wo rk) Social History Tobacco Use Types [...] documented as of this encounter Progress Notes Arnel Ace - 09/01/2008 2:25 PM ENDLESS STEAMER TENDER FINAL CHIEF COMPLAINT: Fell and tripped, injuring my knee. HISTORY OF PRESENT ILLNESS: Charlette Brush is a 63-year-old female who was at home last night and caught her toe on the wilson carpeted, going down, striking her right knee in the kneecap area and scraping her hands to break her fall. She denies hitting her head or injuring her neck or back. She has been able to partly weight bear on the right knee, but has noted ecchymosis and bruising. PAST MEDICAL HISTORY: Pulmonary embolus in 2001. She was on hormone replacement therapy at that time and is off that now, but continues on anticoagulation. History of hypertension. MEDICATIONS: Cozaar, atenolol, , triamterene and Coumadin. ALLERGIES: Allergic to penicillin and Keflex. SOCIAL HISTORY: Here with her daughter currently. She works for the [employer] [place] REVIEW OF SYSTEMS: See HPI. She has had no clicking, locking or giving way of the knee, just pain and ecchymosis. She is able to partially weight bear. She denies any pain in her hip or her foot. Nonein her ankle. All other systems negative. OBJECTIVE: VITAL SIGNS: Temperature is 97.4, heart rate 76, respiratory rate 20, blood pressure 102/44 and room air sat 95%. CONSTITUTIONAL: She appears her stated age. She is morbidly obese, alert and oriented x3. HEENT: Head is atraumatic and normocephalic. PERRLA, EOMI. CARDIOVASCULAR: Regular sounds. RESPIRATORY: No increased work of breathing. LUNGS: Clear. MUSCULOSKELETAL: Right knee appears the same size as the left, which is very obese, but there is ecchymosis over the right knee area anteriorly, none posteriorly. She has full range of movement of each hip. Same at the knee. No clicking, locking or grinding. Passive range of the ankles. Distal pulsesintact. SKIN: [place], warm and dry. EMERGENCY ROOM COURSE: Plain view x-rays, I could not rule out a tibial plateau spine fracture. I discussed with Dr. Marshall , and I added a CT scan, which was negative. An Adams wrap was placed because of the mechanism, and the findings are consistent with a contusion, not a twisting type axial loading mechanism that would suggest a torn meniscus or intra-articular injury. This was direct impact. PLAN: She will ice this area and elevate as much as possible. Tylenol since she is on Coumadin. Follow up with her PMD for reevaluation in 24 hours. Return in the interim for any new or worsening symptoms. Electronically signed on 09/01/2008 14:24 by ARNEL ACE MD MT: [id number] Name: CHARLETTE BRUSH MRN: [id number] Account: [id number] : 1945 Visit Date: 08/27/2008 Document: [id number] ESS STEAMER TENDER documented in this encounter Plan of Treatment Upcoming Encounters Date Type Specialty Care Team Description 11/15/2022 Virtual Visit Pharm D Haylie Cheung, [facility] [address] [facility] [address] (Wo rk) 11/15/2022 Virtual Visit IM[place] [address] [place] [address] [place] [address] (Wo rk) 03/03/2023 Virtual Visit Neurology Erlinda Barber MD 420 [facility] [address] [place] [address] (Wo rk) documented as of this encounter Visit Diagnoses Not on filedocumented in this encounter
--- OUTSIDE RECORDS SUMMARY | 2022-06-15 13:28 | XMS_ITS | Encounter Summary ---
:1945 Author Organization [facility] Address [address] [place] [address] Care Team Providers Name Role Phone Mari Esparza MD Primary Care Provider Encounter Details Date Type Department Care Team Description 04/01/2009 Office Visit-[facility] DEPT Provider, [facility] [...] encounter Progress Notes Provider, La Nurse - 04/01/2009 8:30 AM CDT Clinical Studies Specialist: Amelia Guerin Status: Final Encounter: 01 Apr 2009 Type: Rooming Note Reason For Visit MARZENA BRUSH (: 1945, ) is a 64 year old female coming to clinic for followup stasis dermatitis and lymphedema. Do you have any other appointments, tests or procedures within the [facility] system for this same day? No. Pain Eval Current history of pain associated with this visit is denied. Personal Hx Behavioral history: No tobacco use. Home environment: No secondhand tobacco smoke in home. Vital Signs Recorded by Amelia Guerin on 01 Apr 2009 08:12 AM BP:138/75, LUE, Sitting, HR: 72 b/min, L Radial. Allergies Bactroban CREA Bactroban [...] 100 MG Tablet;TAKE 1 TABLET DAILY.; RPT AAA-MED RECONCILE;per patient; RPT Hydrocortisone 2.5 % Ointment;APPLY TO LEGS TWICE DAILY; Rx Desoximetasone 0.05 % Gel;APPLY THREE TIMES DAILY NEEDED.; Rx Cetirizine HCl 5 MG Tablet;Generic for zyrtec 5 mg/ take one tablet by mouth twice daily; Rx. Signature Signed By: Amelia Guerin R.N.; 04/01/2009 8:16 AM DIESEL ELECTRICIAN. documented in this encounter Plan of Treatment Upcoming Encounters Date Type Specialty Care Team Description 11/15/2022 Virtual Visit Pharm Haylie Gonzalez, [facility] [address] [facility] [place] [address] (Lena max) 11/15/2022 Virtual Visit IM/Peds Yane Barraza MD [address] [facility] [place] [address] (Lena max) 03/03/2023 Virtual Visit Neurology Erlinda Barber MD 420 [facility] 295 [place] [address] (Wo rk) documented as of this encounter Visit Diagnoses Not on filedocumented in this encounter Care Teams Barrel Rifler Relationship Specialty Start Date End Date Mari Esparza MD PCP - General 10/05/10 10/10/11 AYLA HUTCHINSON [address] [facility] [place] [address] documented as of this encounter
--- OUTSIDE RECORDS SUMMARY | 2022-06-15 13:28 | XMS_ITS | Encounter Summary ---
:1945 Author Organization [facility] Address [address] [place] [address] Care Team Providers Name Role Phone Mari Esparza MD Primary Care Provider Encounter Details Date Type Department Care Team Description 12/01/2008 Office Visit-[facility] DEPT Provider, U[facility] [...] encounter Progress Notes Provider, La Nurse - 12/01/2008 9:15 AM CDT Rail Loader: Amelia Guerin Status: Final Encounter: 01 Dec 2008 Type: Rooming Note Reason For Visit MARZENA BRUSH (: 1945, ) is a 63 year old female coming to clinic for skin check. Do you have any other appointments, tests or procedures within the [facility] system for this same day? No. Pain Eval Current history of pain associated with this visit is denied. Personal Hx Behavioral history: No tobacco use. Home environment: No secondhand tobacco smoke in home. Vital Signs Recorded by Amelia Guerin on 01 Dec 2008 09:20 AM BP:143/67, LUE, Sitting, HR: 72 b/min, L Radial, Height: 67 in, Weight: 411 lb, BMI: 64.4 kg/m2. Allergies Bactroban CREA Bactroban OINT Budesonide POWD Clotrimazole SOLN Keflex CAPS Lanolin OINT Moisturel Lotion Nutraderm Lotion Penicillins. Current Meds Triamterene-HCTZ 37.5-25 MG Capsule;TAKE 1 CAPSULE DAILY.; RPT Atenolol 25 MG Tablet;TAKE 1 TABLET TWICE DAILY; RPT Zyrtec 5 MG TABS;TAKE 2 TABLET DAILY; RPT Coumadin 10 MG Tablet;TAKE 1 TABLET DAILY.; RPT PROzac 20 MG Capsule;TAKE 1 CAPSULE DAILY.; RPT Cozaar 100 MG Tablet;TAKE 1 TABLET DAILY.; RPT Desoximetasone 0.05 % Gel;APPLY THREE TIMES DAILY NEEDED.; Rx Hydrocortisone 2.5 % Ointment;APPLY TO LEGS TWICE DAILY; Rx Cetirizine HCl 5 MG Tablet;Generic for zyrtec 5 mg/ take one tablet by mouth twice daily; Rx AAA-MED RECONCILE;per patient; RPT. 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 documented in this encounter Plan of Treatment Upcoming Encounters Date Type Specialty Care Team Description 11/15/2022 Virtual Visit Pharm Haylie Gonzalez, [facility] [address] [facility] [place] [address] (Lena max) 11/15/2022 Virtual Visit MICHAEL/Yane Mathias MD [address] [facility] [place] [address] (Lena max) 03/03/2023 Virtual Visit Neurology Erlinda Barber MD 420 [facility] 295 [place] [address] (Wo rk) documented as of this encounter Visit Diagnoses Not on filedocumented in this encounter Care Teams Laundry Washer Relationship Specialty Start Date End Date Mari Esparza MD PCP - General 10/05/10 10/10/11 AYLA HUTCHINSON [address] [place] [address] [place] [address] documented as of this encounter
--- OUTSIDE RECORDS SUMMARY | 2022-06-15 13:28 | XMS_ITS | Encounter Summary ---
:1945 Author Organization [facility] Address [address] [place] [address] Care Team Providers Name Role Phone Unavailable Primary Care Provider Unavailable Reason for Visit Reason Comments ER F/U right knee injury Encounter Details Date Type Department Care Team Description 08/29/2008 Office Visit [facility] Lisandro Gamboa, Contusio n of Knee; Yarelis PATEL Chronic Anticoagulation [address] [place] [address] [facility] [address] [phone] [place] [phone] Social History Tobacco Use Types Packs/Day Years [...] Sign Reading Time Taken Comments Blood Pressure 110/78 08/29/2008 1:45 PM ASBESTOS REMOVER Pulse 72 08/29/2008 1:45 PM ASBESTOS REMOVER Temperature - - Respiratory Rate - - Oxygen Saturation - - Inhaled Oxygen Concentration - - Weight 180.7 kg (398 lb 6.4 oz) 08/29/2008 1:45 PM ASBESTOS REMOVER Height 169.5 cm (5' 6.75) 08/29/2008 1:45 PM ASBESTOS REMOVER Body Mass Index 62.87 08/29/2008 1:45 PM ASBESTOS REMOVER documented in this encounter Progress Notes Lisandro Gamboa - 08/29/2008 8:28 PM CST CC: Right knee pain, ED f/u HPI: Charlette Brush is a 63 year old female who presents for evaluation of above. Fell on Monday (4 days ago), landing on r knee. Eval in ED on Mon. Had plain films and CT of the leg w/o evid of fx. Ecchymosis around knee. Is able to walk. On coumadin, INR on Monday was 2.5. Noting ecchymosis of the knee, spreading down leg. Patient Active Problem List Diagnoses Code ??? BENIGN HYPERTENSION 401.1 ??? PULM EMBOLISM/INFARCT NOS 415.19 ??? EDEMA 782.3 ??? MORBID OBESITY 278.01 ??? OTHER LYMPHEDEMA 457.1 ? ? OBSTRUCTIVE SLEEP APNEA, ADULT & PED 327.23 ??? 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 iamJOINT PAIN-ANKLE 719.47 ??? LIPOID METABOL DIS NOS 272.9 Past Medical History Diagnosis Date ??? benign positional vertigo 09/08/2004 s/p canolith repositioning 07/21 ??? OTHER LYMPHEDEMA 11/04/2003 ??? BENIGN HYPERTENSION 07/30/2003 ??? PULM EMBOLISM/INFARCT NOS 11/20/2001 Past Surgical History Procedure Date ??? Cholecystectomy, open 1970 ? ? Tonsillectomy & adenoidectomy Current Outpatient Rx Name Route Sig Dispense Refill ??? COZAAR 100 MG OR TABS Oral ONE DAILY 3 MONTHS 1 YEAR ??? TRIAMTERENE-HCTZ 37.5-25 MG OR CAPS Oral 1 CAPSULE DAILY 30 11 ??? ATENOLOL 25 MG OR TABS Oral 1 tab po BID 60 11 ??? FLUOXETINE HCL 20 MG OR TABS Oral ONE DAILY IN THE MORNING 30 1 YEAR ??? ZYRTEC 5 MG OR TABS Oral 1 tab BID 60 11 ??? COUMADIN 2.5 MG OR TABS Oral as directed 32 3 ??? ACETAMINOPHEN 500 MG OR TABS Oral 1 tab qd ??? HYDROCORTISONE (TOPICAL) 2.5 % EX OINT apply as needed 28.35GM ??? TOPICORT 0.05 % EX GEL apply 3 times daily as needed below knees 60 GM ??? COUMADIN 10 MG OR TABS Oral 1 tab qd or as directed 31 1 year ??? ZYRTEC-D 5-120 MG OR TB12 Oral ONE TABLET TWICE DAILY 3 MONTHS 1 YEAR ALLERGIES: Allergies Allergen Reactions ??? Penicillins hives ??? Cephalexin Keflex - hives ??? Lanolin skin irritation ??? Neomycin skin irritation ??? Bactroban (Mupirocin Calcium) Rash EXAM BP 110/78 Pulse 72 Ht 5' 6.75 (1.695 m) Wt 398 lb 6.4 oz (180.713 kg) LMP Postmenopausal GEN: NAD EXTR: Morbidly obese. Sl warmth over right knee. Ecchymotic changes over knee extending down leg. FROM of knee. SKIN: Ecchymotic changes. 2 small bullae ant prox tibial region. INR: 2.6 ASSESSMENT: 924.11 Contusion of Knee Comment: s/p fall. Warmth most likley d/t inflammatory changes. No clinical evid of cellulitis at this time. Plan: RICE. If erythema develops, call for consideration of atbx therapy. V58.61F Chronic Anticoagulation Comment: INR therapeutic today Plan: PROTHROMBIN TIME Cont w/ routine coumadin dosing. Keep routine INR f/u. STOS REMOVER documented in this encounter Nursing Notes 08/29/2008 1:45 PM CST >> JUAN Richardson Aug 29, 2008 2:11 PM Charlette Brush presents for ER f/u on left knee injury. Was seen on 08/27/08. Initial BP 110/78 Pulse 72 Ht 5' 6.75 (1.695 m) Wt 398 lb 6.4 oz (180.713 kg) LMP Postmenopausal Body mass index is 62.87 kg/(m^2).. 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 documented in this encounter Plan of Treatment Upcoming Encounters Date Type Specialty Care Team Description 11/15/2022 Virtual Visit Pharm Haylie Gonzalez, [facility] [address] [facility] [place] [phone] (Wo rk) 11/15/2022 Virtual Visit IM/Peds Yane Barraza MD [address] [facility] [address] [place] [phone] (Wo rk) 03/03/2023 Virtual Visit Neurology Erlinda Barber MD [address] [facility] 295 [place], [place] [phone] (Wo rk) documented as of this encounter Procedures Procedure Name Priority Date/Time Associated Diagnosis Comme nts CL AFF PROTHROMBIN Routine 08/29/2008 2:32 Chronic Anticoagula tion Results for this TIME PM ASBESTOS REMOVER procedure are i n the results section. documented in this encounter Results (ABNORMAL) PROTHROMBIN TIME (08/29/2008 2:32 PM ASBESTOS REMOVER) athologist Signature INR 2.60 (H) 0.86 - 1.14 [facility] Specimen Anatomical Collection Method Collection Time Receive d Time (Source) Location / / Volume Laterality 08/29/2008 2:32 PM 9 2:37 ASBESTOS REMOVER PM ASBESTOS REMOVER Lisandro Gamboa MD LABORATORY Performing Organization Address City/State/ZIP Code Phon e Number [facility] [address] [facility] [place] [address] [facility] documented in this encounter Visit Diagnoses Diagnosis Contusion of knee Chronic anticoagulation Encounter for long-term (current) use of anticoagulants documented in this encounter
--- OUTSIDE RECORDS SUMMARY | 2022-06-15 13:28 | XMS_ITS | Encounter Summary ---
:1945 Author Organization [place] Address [address] [place] [address] Care Team Providers Name Role Phone Unavailable Primary Care Provider Unavailable Reason for Visit Reason Onset Date Comments Refill Request 12/12/2008 fluoxetine Encounter Details Date Type Department Care Team Description 12/12/2008 Refill [facility] Mari Beard MD Refill Request 14[address] [facility] JOYCE HUTCHINSON (fluoxetine) [place] [phone] [address] [phone] [place] [address] (Wo rk) Social History Tobacco [...] this encounter Miscellaneous Notes Telephone Encounter - Tk Nettlesia - 12/12/2008 12:09 PM CDT Pt called back and made appt for px on 01/07/09. Pt will come in for a lab appt when she is coming infor INR. Will be fasting. Will order labs. Refill RX per protocol. Dana Nettles RN Telephone Encounter - Tk Nettlesia - 12/12/2008 11:48 AM CDT Pharmacy refill request fluoxetine Date Last refilled 11/10/08 Last office visit 03/31/08, Px was 10/08/07 BP 110/78 LM for pt to call. Should make appt for px. Will refill x1 Dana Nettles RN documented in this encounter Plan of Treatment Upcoming Encounters Date Type Specialty Care Team Description 11/15/2022 Virtual Visit Pharm D Haylie Cheung, [facility] [address] [facility] [address] [place] [phone] (Wo rk) 11/15/2022 Virtual Visit [place] [address] [place] [address] [place] [phone] (Wo rk) 03/03/2023 Virtual Visit Neurology Erlinda Barber MD [address] [facility] 295 [place], [place] [address] (Wo rk) documented as of this encounter Visit Diagnoses Diagnosis Morbid obesity (H) - Primary Morbid obesity documented in this encounter
--- OUTSIDE RECORDS SUMMARY | 2022-06-15 13:28 | XMS_ITS | Encounter Summary ---
:1945 Author Organization [place] Address [address] [place] [address] Care Team Providers Name Role Phone Unavailable Primary Care Provider Unavailable Reason for Referral Referral not Required - Closed Specialty Diagnoses / Procedures Referred By Contact Refer red To Contact Diagnoses Morbid obesity (H) Mari Esparza MD [facility] [address] Phone: [phone] [place] [address] Referral ID Status Reason Start Date Expiration Date Visits Requ ested Visits Authorized [id number] Closed 01/08/2009 07/16/2011 1 1 Reason for Visit Reason Comments Physical Encounter Details Date Type Department Care Team Description 01/08/2009 Office Visit [facility] Mari Esparza Routi ne Medical Exam (Primary Dx); Yarelis PATEL Essential Hypertension, Benign; 14[address] [facility] AYLA COOK Special Screening for Osteop orosis; [place] [phone] JASPER Morbid Obesity (H) [phone] [address] [place] [address] (Wo rk) Social History Tobacco Use [...] Reading Time Taken Comments Blood Pressure 124/74 01/08/2009 9:35 AM CDT Pulse 64 01/08/2009 9:35 AM CDT Temperature - - Respiratory Rate - - Oxygen Saturation - - Inhaled Oxygen Concentration - - Weight 181.4 kg (400 lb) 01/08/2009 9:35 AM CDT Height 170.2 cm (5' 7) 01/08/2009 9:35 AM CDT Body Mass Index 62.65 01/08/2009 9:35 AM CDT documented in this encounter Progress Notes Mari Esparza - 01/18/2009 8:24 PM CDT SUBJECTIVE: Presents for routine health maintenance exam. LMP noted HPI: feels well, no complaints The patient's medical,family and social histories have been reviewed and updated as needed today. Contraception: see hx REVIEW OF SYSTEMS: CONSTITUTIONAL:NEGATIVE for fever, chills, change in weight INTEGUMENTARY/SKIN: NEGATIVE for worrisome rashes, moles or lesions EYES: NEGATIVE for vision changes or irritation ENT/MOUTH: NEGATIVE for ear, mouth and throat problems RESP:NEGATIVE for significant cough or SOB BREAST: NEGATIVE for masses, tenderness or discharge CV: NEGATIVE for chest pain, palpitations or peripheral edema GI: NEGATIVE for nausea, abdominal pain, heartburn, or change in bowel habits :NEGATIVE for dysuria, hematuria, abnormal menses, incontinence Any history of irregular bleeding? No MUSCULOSKELETAL:NEGATIVE for significant arthralgias or myalgia NEURO: NEGATIVE for weakness, dizziness or paresthesias ENDOCRINE: NEGATIVE for temperature intolerance, skin/hair changes HEME/ALLERGY/IMMUNE: NEGATIVE for bleeding problems PSYCHIATRIC: NEGATIVE for changes in mood or affect GENERAL APPEARANCE: healthy, alert and no distress EYES: Eyes grossly normal to inspection, PERRL and conjunctivae and sclerae normal HENT: ear canals and TM's normal and [...] S4 and no murmur, click or rub LYMPHATICS: normal ant/post cervical and supraclavicular nodes ABDOMEN: soft, nontender, without hepatosplenomegaly or masses : deferred this year at pt request MS: FROM on exam of UE, LE, neck, and back, No arthritis, or synovitis on exam. EXT: no cyanosis, legs are wrapped, woody edema SKIN: no suspicious lesions or rashes NEURO: Normal strength and tone, mentation intact and speech normal PSYCH: mentation appears normal and affect normal/bright ASSESSMENT/IMPRESSION: Health maintenance exam Cardiac Risks: HTN and Age > 45 (male) or >55 (female) Patient's Goal LDL = <130 Patient is screened for GC and Chlamydia: No V70.0B Routine Medical Exam (primary encounter diagnosis) Comment: Plan: discussed weight, pt is going to investigate gastric bypass 401.1 Essential Hypertension, Benign Comment: Plan: COZAAR 100 MG OR TABS V82.81 Special Screening for Osteoporosis Comment: Plan: DEXA,BONE DENSITY,AXIAL SKELETON 278.01 Morbid Obesity Comment: Plan: CONSULT WEIGHT MANAGEMENT I have discussed with the patient the risks, benefits, and treatment options of prescribed medications or other treatment modalities. I have instructed the patient to call or schedule a follow-up appointment for any problems or failure to improve. I have also discussed the importance of a balanced diet and regular exercise, osteoporosis prevention and accident prevention. Jennifer Alicia - 01/08/2009 9:43 AM CDT HEALTH CARE MAINTENANCE: Ever had an abnormal pap? Yes - date: 16 years ago Menses are every na days; lasting for na days. Flow is na. Menstrual Pain? na PMS symptoms? na Have you had a pneumonia shot? Yes - date: 05/13/05 How many dairy products do you eat daily? 3 Have you had an eye exam in the past year? NO Health Maintenance Reviewed: Health Maintenance Topic Date Due ??? Dexa q3 yr 01/05/1976 ??? Colonoscopy q10 yr inbasket message 02/12/2014 ??? Ldl q 5 yrs 12/29/2013 ??? Mammo q2 yr no inbasket message 01/16/2010 ??? Pap q 2 years no inbasket message 10/07/2009 ??? Tetanus q10 yr 08/27/2014 SAFETY: ======= Do you exercise? NO If yes, how many times per week? Do you feel safe in your relationship(s)? Not Applicable Do you have a gun in your home? No Do you wear your seatbelt regularly? YES Do you use sunscreen? YES Are you fasting today? No documented in this encounter Nursing Notes 01/08/2009 9:30 AM CDT >> JENNIFER ALICIA [facility] Jan 08, 2009 9:43 AM Patient presents with: Physical Initial BP 124/74 Pulse 64 Ht 5' 7 (1.702 m) Wt 400 lb (181.439 kg) LMP Postmenopausal Bodymass index is 62.65 kg/(m^2).. BP completed using cuff size: X-large documented in this encounter Plan of Treatment Upcoming Encounters Date Type Specialty Care Team Description 11/15/2022 Virtual Visit Pharm Haylie Gonzalez, [facility] [address] [facility] [place] [address] (Wo rk) 11/15/2022 Virtual Visit IM/Peds Yane Barraza MD [address] [facility] [place] [address] (Lena max) 03/03/2023 Virtual Visit Neurology Erlinda Barber MD 420 [facility] 295 [place] [address] (Lena max) documented as of this encounter Visit Diagnoses Diagnosis Routine medical exam - Primary Routine general medical examination at a health care facility Essential hypertension, benign Special screening for osteoporosis Morbid obesity (H) Morbid obesity documented in this encounter
--- OUTSIDE RECORDS SUMMARY | 2022-06-15 13:28 | XMS_ITS | Encounter Summary ---
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 Encouraged her to follow up with ortho. ASSESSMENT/PLAN: See: ANTICOAGULATION QIC flow sheet. ANTICOAGULATION CLINIC Qnig Guy RN documented in this encounter Nursing Notes 12/01/2008 8:00 AM CDT >> QING GUY Mon December 01, 2008 8:36 AM Charlette Brush presents for INR. Estimated Body mass index is 64.95 kg/(m^2) as calculated from: Height of 5' 6.75 (1.695 m) as of 08/29/08 Weight of 411 lb 9.6 oz (186.701 kg) as of this encounter Qing Guy RN documented in this encounter Plan of Treatment Upcoming Encounters Date Type Specialty Care Team Description 11/15/2022 Virtual Visit Pharm D Haylie Cheung, [facility] [address] [facility] [place] [address] (Lena max) 11/15/2022 Virtual [place] [address] [place] [address] [place] [address] (Lena max) 03/03/2023 Virtual Visit Neurology Erlinda Barber MD 420 [facility] 295 [place], [place] [address] (Lena max) documented as of this encounter Procedures Procedure Name Priority Date/Time Associated Diagnosis Comme nts HCL INR POCT Routine 12/01/2008 Encounter for Long-Term Resu lts for this (Current) Use of procedure a re in the Anticoagulants results secti on. 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
--- OUTSIDE RECORDS SUMMARY | 2022-06-15 13:28 | XMS_ITS | Encounter Summary ---
:1945 Author Organization [place] Address [address] [place] [address] Care Team Providers Name Role Phone Unavailable Primary Care Provider Unavailable Reason for Visit Reason Comments Anticoagulation Encounter Details Date Type Department Care Team Description 02/23/2009 Allied Health/[facility] Eag an Anticoagulation Visit 14[address] [facility] [place] [phone] Social History Tobacco [...] - Inhaled Oxygen Concentration - - Weight 182.9 kg (403 lb 3.2 oz) 02/23/2009 8:03 AM CDT Height - - Body Mass Index 63.15 01/08/2009 9:35 AM CDT documented in this encounter Progress Notes Qing Guy - 02/23/2009 8:15 AM CDT ANTICOAGULATION FOLLOW-UP CLINIC VISIT Patient Name: Charlette Brush Date: 02/23/2009 SUBJECTIVE: Bleeding Signs/Symptoms: None Thromboembolic Signs/Symptoms: None Medication Changes: No Dietary Changes: No Bacterial/Viral Infection: Runny nose, sneezing most of the summer. Takes Zyrtec. Missed Coumadin Doses: None Other Concerns: No ASSESSMENT/PLAN: See: ANTICOAGULATION QIC flow sheet. ANTICOAGULATION CLINIC Qing Guy RN documented in this encounter Nursing Notes 02/23/2009 8:00 AM CDT >> QING GUY Mon Feb 23, 2009 8:26 AM Charlette Brush presents for INR. Estimated Body mass index is 63.15 kg/(m^2) as calculated from: Height of 5' 7 (1.702 m) as of 01/08/09 Weight of 403 lb 3.2 oz (182.89 kg) as of this encounter Qing Guy RN documented in this encounter Plan of Treatment Upcoming Encounters Date Type Specialty Care Team Description 11/15/2022 Virtual Visit Pharm D Haylie Cheung, [facility] 14[address] [facility] [place] [phone] (Lena max) 11/15/2022 Virtual Visit IM/Peds Yane Barraza MD [address] [facility] [place] [phone] (Lena max) 03/03/2023 Virtual Visit Neurology Erlinda Barber MD 420 [facility] 295 [place], [place] [phone] (Lena max) documented as of this encounter Procedures Procedure Name Priority Date/Time Associated Diagnosis Comme nts HCL INR POCT Routine 02/23/2009 Encounter for Long-Term Resu lts for this (Current) Use of procedure a re in the Anticoagulants results secti on. documented in this encounter Results INR POINT OF CARE (02/23/2009) P athologist Signature INR Point of 2.2 [facility] Mari Esparza MD LABORATORY Performing Organization Address City/State/ZIP Code Phon e Number [facility] documented in this encounter Visit Diagnoses Diagnosis skilled nursing (current) use of anticoagulant s - Primary Long-term (current) use of anticoagulant s documented in this encounter
--- OUTSIDE RECORDS SUMMARY | 2022-06-15 13:28 | XMS_ITS | Encounter Summary ---
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 [facility] ANTICOAGULATION CLINIC Qing Guy RN documented in this encounter Nursing Notes 12/29/2008 8:15 AM CDT >> QING GUY Mon Dec 29, 2008 8:54 AM Charlette Stiles[place]nithin presents for INR. Estimated Body mass index is 63.28 kg/(m^2) as calculated from: Height of 5' 6.75 (1.695 m) as of 08/29/08 Weight of 401 lb (181.892 kg) as of this encounter Qing Guy RN documented in this encounter Plan of Treatment Upcoming Encounters Date Type Specialty Care Team Description 11/15/2022 Virtual Visit Pharm Haylie Gonzalez, [facility] 14[address] [facility] [place] [phone] (Lena max) 11/15/2022 Virtual Visit IM/Peds Yane Barraza MD [address] [facility] [place] [phone] (Wo winter) 03/03/2023 Virtual Visit Neurology Erlinda Barber MD 420 [facility] 295 [place], [place] [phone] (Lena max) documented as of this encounter Procedures Procedure Name Priority Date/Time Associated Diagnosis Comme nts HCL INR POCT Routine 12/29/2008 Encounter for Long-Term Resu lts for this (Current) Use of procedure a re in the Anticoagulants results secti on. 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
--- OUTSIDE RECORDS SUMMARY | 2022-06-15 13:28 | XMS_ITS | Encounter Summary ---
:1945 Author Organization [place] Address [address] [place] [address] Care Team Providers Name Role Phone Unavailable Primary Care Provider Unavailable Encounter Details Date Type Department Care Team Description 08/27/2008 Results Only [facility] Arnel Gordon MD Hospital Results EMERGENCY PHYSI DAVEY ROSARIO [address] [place], [place] [address] (Wo rk) Social History [...] Virtual Visit Haylie Wakefield, [facility] [address] [place] [address] [place] [address] (Wo rk) 11/15/2022 Virtual Visit IM/Peds Yane Barraza MD [address] [facility] [address] [facility] [place] [address] (Wo rk) 03/03/2023 Virtual Visit Neurology Erlinda Barber MD [address] [facility] [address] [place] [address] (Wo rk) documented as of this encounter Procedures Procedure Name Priority Date/Time Associated Diagnosis Comme nts [facility] RT CT SCAN LEG Routine 08/27/2008 3:24 PM Res ults for this WORKS MANAGER procedure are i n the results section. [facility] RT X-RAY KNEE 1 Routine 08/27/2008 2:26 PM Re sults for this OR 2 VIEW WORKS MANAGER procedure are i n the results section. documented in this encounter Results RT CT SCAN LEG (08/27/2008 3:24 PM WORKS MANAGER) Anatomical Region Laterality Modality Other Specimen (Source) Anatomical Collection Method Collection Time Re ceived Time Location / / Volume Laterality 08/27/2008 3:24 PM WORKS MANAGER Impressions 08/27/2008 3:[address] LOWER EXTREMITY W/O CONTRAST RIGHT ?? Aug 27, 2008 3:24:00 PM HISTORY: Trauma. Rule out tibial plateau fracture. TECHNIQUE: Scans were obtained through t he right knee in 3 planes without IV contrast. COMPARISON: None. FINDINGS: Significant narrowing of the m edial compartment with moderate degenerative arthritis involvin g the knee. No fracture or dislocation identified. Specifically, no tibial plateau fracture. Images are somewhat degraded by the latoya ent's large size. Remainder of the scan is negative. IMPRESSION: 1. Moderate degenerative arthritis in th e knee with narrowing of the medial compartment. 2. No fracture or dislocation identified . Arnel Gordon MD SPECIAL IMAGING STUDIES RT X-RAY KNEE 1 OR 2 VIEW (08/27/2008 2:26 PM WORKS MANAGER) Anatomical Region Laterality Modality Other Specimen (Source) Anatomical Collection Method Collection Time Re ceived Time Location / / Volume Laterality 08/27/2008 2:26 PM WORKS MANAGER Impressions 08/29/2008 8:42 PM WORKS MANAGER Addendum Begins Charlette Trudi The original report on this patient was dictated by myself. Correction: There is some irregularity o f the tibial spine on the frontal view, raising the question of a fracture. Consider CT evaluation. Probably degenerative osteop hyte off the lateral tibial plateau. Latia Marques MD ( Date of Addendum: 05/2009 ) Addendum Ends KNEE 1 TO 2 VIEWS RIGHT* ??Aug 27, 2008 2:26:00 PM HISTORY: Trauma. COMPARISON: ??None. IMPRESSION: No acute process. Fairly sig nificant medial compartment narrowing. Resolution somewhat limited b y large body habitus. Arnel Gordon MD GENERAL IMAGING documented in this encounter Visit Diagnoses Not on filedocumented in this encounter
--- OUTSIDE RECORDS SUMMARY | 2022-06-15 13:28 | XMS_ITS | Encounter Summary ---
:1945 Author Organization [place] Address [address] [place] [address] Care Team Providers Name Role Phone Unavailable Primary Care Provider Unavailable Reason for Visit Reason Onset Date Comments Refill Request 09/17/2008 Warfarin Encounter Details Date Type Department Care Team Description 09/17/2008 Refill [facility] Collette Esparza, Mari Sifuentes MD Refill Request [address] [facility] JOYCE HUTCHINSON (Warfarin) [place] [phone] [address] [phone] [place] [address] (Wo rk) Social History Tobacco [...] Notes Telephone Encounter - Khadar Austineen - 09/17/2008 2:26 PM CST Med filled per standard nursing protocol; pt comes in for regular INR Clinic appts. Amari Austin RN F MECHANICAL ENGINEER documented in this encounter Plan of Treatment Upcoming Encounters Date Type Specialty Care Team Description 11/15/2022 Virtual Visit Pharm D Haylie Cheung, [facility] [address] [facility] [place] [address] (Wo rk) 11/15/2022 Virtual Visit IM/Peds Yane Barraza MD [address] 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
--- OUTSIDE RECORDS SUMMARY | 2022-06-15 13:28 | XMS_ITS | Encounter Summary ---
:1945 Author Organization Check Address [address] [place] [address] Care Team Providers Name Role Phone Unavailable Primary Care Provider Unavailable Encounter Details Date Type Department Care Team Description 12/18/2008 Consultation [facility] Amari Lou, PT Hospital Results [facility] [address] [place], [place] [address] (Wo rk) Social History Tobacco Use Types [...] PM CDT documented as of this encounter Procedure Notes Ashlie Lou, PT - 12/19/2008 7:38 AM CDTAssociated Order(s): CONSULT ROBIN (PT & CHIRO) FINAL PHYSICAL THERAPY EVALUATION/EDEMA EVALUATION Total Evaluation Time: 90 minutes EVALUATION SUMMARY: Marzena Brush is a 63-year-old female patient with a diagnosis of lymphedema. The patient presents with Stage II lymphedema of bilateral lower extremities as noted by swelling that does not totally resolve with elevation. * Stage I is characterized as being reversible with elevation * Stage II is characterized as non-reversible with elevation and as having fibrotic soft tissue texture changes secondary to 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 designer deposits of protein rich lymphatic fluid. * Stage III or elephantiasis is characterized by thickening of the skin and production of papillomas. Extreme swelling may also be present. Lymphedema is a chronic condition that left untreated does not resolve and will continue to progress, furthering the patient's risk for repeated infection, increase in limb girth and increased risk oflower quadrant swelling. The patient has been experiencing this condition for many years, but since her recent fall in 08/2008 and has been experiencing increased swelling, specifically in right lower extremity. Patient has received previous treatment for this condition. It is my clinical judgment that this patient would benefit from an individualized treatment program of Complete Decongestive Therapy. PT TREATMENT DIAGNOSIS: Patient's edema has not improved but has progressed to its present state ofincreased joint stiffness, edema, and fibrosis. IMPAIRMENTS: Findings at this evaluation include increased right lower extremity limb girth by 11.8%, increased fibrosis at bilateral anterior shins and calf area, decreased active ROM of bilateral ankles due to swelling, decreased strength of bilateral lower extremities due to inactivity from swellin g, and increased risk for infection. PRECAUTIONS: Patient demonstrates understanding of precautions: yes CHF, active cancer, kidney disease, DVTs, arterial disease, thyroid disease and acute infection. PROGNOSIS: Patient has rehab potential for success. PLAN OF CARE: Recommend Intensive Treatment by a certified lymphedema physical therapist 4x/week for 3 weeks, which will include: * Manual lymph drainage * Gradient compression * Exercises * Precautions to prevent infection/exacerbation * Education GOALS/OUTCOMES FOR PHYSICAL THERAPY: The following goals are to be met 4 weeks from the start date of Intensive Treatment: In order to improve functional mobility for activities of living, by the completion of intensive treatment, patient and/or caregiver will; 1. Verbalize and/or demonstrate understanding of techniques to independently manage their lymphedema at home. a. Tolerate gradient compression bandaging, wearing compression garments 23-hours per day to decrease volume of extra cellular fluid. b. Demonstrate independence in applying gradient compression bandages to bilateral lower extremities. c. Demonstrate independence in performing prescribed exercises to facilitate the lymph system. d. Be independent in donning, doffing, wearing schedule and care of compression garments. 2. Circumferential volumetric measurements will be reduced in the bilateral lower extremities by 5%to enable patient to don her garments and walk with a normal gait pattern. Patient is in agreement with plan of care. Risks and benefits of treatment have been explained. INTERVENTIONS THIS SESSION: Total treatment Time: 90 minutes Therapist educated and trained the patient in verbal education with written resources issued regarding the physiology/pathophysiology of the lymphatic system, treatment options and skin care precautions to prevent infection/exacerbation. Patient participated and was instructed in the causes and precautions of lymphedema as well as goals for treatment. Risks and benefits have been explained to the patient. Patient also instructed to exercise guidelines, avoiding temperature extremes, avoiding constriction of lymphatic flow, diet and air travel precautions. Other education was on obesity and clothing. EXAMINATION PHYSICAL THERAPY ORDER DATE/MEDICAL DIAGNOSIS: Eval and treat for bilateral distal lower extremity lymphedema S/P recent fall dated 12/01/[address] Brown. PAST MEDICAL HISTORY/THERAPY HISTORY: No medical chart was available, history is per patient report. Patient's health history form has been reviewed and is on file in the patient's medical chart. The patient reports no other medical history or contraindications for treatment: CHF, kidney failure, acute infection, DVT, thyroid disease, arterial disease or active cancer. Other medical history includesa pulmonary embolism in 11/2001, high blood pressure but on medication since 1990, tonsillectomy in 1972 and a gallbladder surgery in 1969. Patient also has history of pregnancies. HISTORY OF PRESENT ILLNESS/LYMPHEDEMA: On 08/25/2008, patient fell and landed on bilateral knees, right more than left, with immediate swelling around the right knee. CT scan and x-ray were performed.No fracture was shown. Patient states that since that fall she still feels a lot of swelling and fluid in her bilateral lower extremities and states that her ankles are more swollen than they have beenin the past. Elevation does help with reducing swelling. Patient has had previous treatment for lymphedema included garments, manual lymph drainage, gradient compression bandaging and home exercise program in 2004 at [facility] with Kate Olvera. MEDICATIONS: Patient is taking Atenolol, Cozaar, Citrizine, Triamterene, Fluoxetine, Warfarin, and topical Dexamethasone and Hydrocortisone ointment as needed. ALLERGIES: Patient has numerous allergies to many topical ointments like Lanoline. She is also allergic to Penicillin. SOCIAL HISTORY/HOME ENVIRONMENT: [facility] of [facility] with a rail. Patient is independent with all ADLs at home, but does state that the swelling has decreased hermobility and ability to get around. 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 Hobbies include crafts and arts like quilting, sewing, and needlework. Patient also likes to read and does like to walk when able. TRANSPORTATION: Patient continues to drive and drove self to the evaluation. PATIENT'S IDENTIFIED PROBLEMS/FUNCTIONAL LIMITATIONS: Patient states it is difficult for her to walk for long periods of time, it is difficult for her to tie her shoes, and is difficult for her to be getting in and out of a vehicle. PATIENT'S IDENTIFIED GOALS: She wants to be able to walk more and wants to be more active and move around. SYSTEMS REVIEW LOWER EXTREMITY/QUADRANT FUNCTION: SKIN INTEGRITY: Impaired. Skin is dry with hemosiderin staining on bilateral anterior calf and shinarea of bilateral lower extremities. SOFT TISSUE TEXTURE: Impaired. Patient presents with moderate to severe pitting edema in left anterior bethea and calf area, medial and lateral malleolus and top of foot; on the right lower extremity top of foot, medial and lateral malleolus, anterior and posterior bethea and calf area, as well as medialthigh area. Fibrotic soft tissue texture changes are at the right anterior bethea, calf area and medial thigh area, and in the left lower extremity anterior calf and bethea area and posterior area as well. STEMMER'S SIGN: Positive in bilateral feet. Does edema resolve with elevation? Yes. GIRTH MEASUREMENTS: Impaired. LOWER EXTREMITY GIRTH MEASUREMENTS: Site Measured R (cm) L (cm) Great toe 9.0 10.1 MTP 29.6 27.9 Arch of foot 38.5 32.8 Calcaneous 40.2 39.3 10 cm 38.7 36.8 20 cm 39.8 44.7 30 cm 54.5 55.6 40 cm 66.2 61.7 50 cm 85.3 ?? 60 cm 95.1 86.5 70 cm 105.6 98.0 Total Volume 24,985 mL 22,049 mL Total volume indicates right lower extremity is 11.8% greater than left lower extremity. Volume total does not include measurements distal to the smallest ankle. Total volume is calculated using a truncated formula for the volume of a cone. AROM: Impaired secondary to bilateral lower extremity swelling and right knee pain. SENSATION: Patient has no complaints of impaired sensation. STRENGTH: Impaired secondary to decreased mobility since fall in 08/2008. ACTIVITIES OF DAILY LIVING (ADLS): Patient is independent with activities of daily living but does state it takes her longer to get ready in the morning and to shower and bathe secondary to swelling. CARDIAC: Patient has high blood pressure but is on blood pressure medication. COMMUNICATION/BEHAVIOR: Patient was pleasant and cooperative throughout the evaluation. She asked questions and is eager to learn. LEARNING BARRIERS: None. LEARNING PREFERENCES: Education will be in the format of demonstration, training and practice, written handouts and verbal instruction. Thank you, Dr. Brown, for referring this patient to the [facility]. If you have questions or concerns regarding the treatment of this patient, please feel free to call me at [phone]. This evaluation was completed by a Certified Lymphedema Therapist. Electronically signed on 12/19/2008 15:23 by ASHLIE LOU PT MT: desirae Name: MARZENA BRUSH Account: [id number] : 1945 Visit Date: 12/18/2008 Sex: F Age: 63 Document: [id number] documented in this encounter Plan of Treatment Upcoming Encounters Date Type Specialty Care Team Description 11/15/2022 Virtual Visit Haylie Wakefield, [facility] [address] [facility] [place] [address] (Wo rk) 11/15/2022 Virtual Visit IM/PedYane Muir MD [address] [facility] [place] [address] (Wo rk) 03/03/2023 Virtual Visit Neurology Erlinda Barber MD [address] [facility] [address] [place] [address] (Lena rk) documented as of this encounter Procedures Procedure Name Priority Date/Time Associated Diagnosis Comme nts ZZ ROBIN PT AND HAND 12/18/2008 12:06 PM Re sults for this REFERRAL CDT procedure are i n the results section. documented in this encounter Results CONSULT ROBIN (PT & CHIRO) (12/18/2008 12:06 PM CDT) Transcriptions Ashlie Lou, PT - 12/19/2008 7:38 AM CDT FINAL PHYSICAL THERAPY EVALUATION/EDEMA EVALU ATION Total Evaluation Time: 90 minutes EVALUATION SUMMARY: Marzena Brush is a 63-year-old female patient with a diagnosis of lymphedema. The patient presents with Stage II lymphedema of bilateral lower extremities as noted by swelling that does not totally resolve with elevation. * Stage I is characterized as being rev ersible with elevation * Stage II is characterized as non-reve rsible with elevation and as having fibrotic soft tissue texture changes secondary to chcf deposits of protein rich lymphatic fluid. * Stage III or elephantiasis is characterized by thickening of the skin and production of papillomas. Extreme swelling may also be present. Lymphedema is a chronic condition that left untreated does not resolve and will continue to progress, furthering the patient's risk for repeated infection, increase in limb girth and increased risk of lower quadrant swelling. The patient has been experienc ing this condition for many years, but since her recent fall in 08/2008 and has been experiencing increased swelling, specifically in right lower extremity. Patient has received previous treatment for this condition. I t is my clinical judgment that this patient would benefit from an individualized treatment program of Complete Decongestive Therapy. PT TREATMENT DIAGNOSIS: Patient's edema has not improved but has progressed to its present state of increased joint stiffness, edema, and fibrosis. IMPAIRMENTS: Findings at this evaluatio n include increased right lower extremity limb girth by 11.8%, increased fibrosis at bilateral anterior shins and calf area, decreased active ROM of bilateral ankles due to swelling, decreased strength of bilatera l lower extremities due to inactivity from swelling, and increased risk for infection. PRECAUTIONS: Patient demonstrates understanding of p recautions: yes CHF, active cancer, kidney disease, DVT s, arterial disease, thyroid disease and acute infection. PROGNOSIS: Patient has rehab potential for success. PLAN OF CARE: Recommend Intensive Treat ment by a certified lymphedema physical therapist 4x/week for 3 weeks, which will include: * Manual lymph drainage * Gradient compression * Exercises * Precautions to prevent infection/exac erbation * Education GOALS/OUTCOMES FOR PHYSICAL THERAPY: The following goals are to be met 4 wee ks from the start date of Intensive Treatment: In order to improve functional mobility for activities of living, by the completion of intensive treatment, patient and/or caregiver will; 1. Verbalize and/or demonstrate underst anding of techniques to independently manage their lymphedema at home. a. Tolerate gradient compression bandaging, wearing compression garments 23-hours per day to decrease volume of extra cellular fluid. b. Demonstrate independence in applying gradient compression bandages to bilateral lower extremities. c. Demonstrate independence in performing prescribed exercises to facilitate the lymph system. d. Be indep endent in donning, doffing, wearing schedule and care of compression garments. 2. Circumferential volumetric measureme nts will be reduced in the bilateral lower extremities by 5% to enable patient to don her garments and walk with a normal gait pattern. Patient is in agreement with plan of ca re. Risks and benefits of treatment have been explained. INTERVENTIONS THIS SESSION: Total treatment Time: 90 minutes Therapist educated and trained the nancy ent in verbal education with written resources issued regarding the physiology/pathophysiology of the lymphatic system, treatment options and skin care precautions to prevent infection/exacerbation. Patient particip ated and was instructed in the causes and precautions of lymphedema as well as goals for treatment. Risks and benefits have been explained to the patient. Patient also instructed to exercise bethanie delines, avoiding temperature extremes, avoiding constriction of lymphatic flow, diet and air travel precautions. Other education was on obesity and clothing. EXAMINATION PHYSICAL THERAPY ORDER DATE/MEDICAL GLENNA GNOSIS: Eval and treat for bilateral distal lower extremity lymphedema S/P recent fall dated 12/01/[address] Brown. PAST MEDICAL HISTORY/THERAPY HISTORY: N o medical chart was available, history is per patient report. Patient's health history form has been reviewed and is on file in the patient's medical chart. The patient reports no other medical history or cont raindications for treatment: CHF, kidney failure, acute infection, DVT, thyroid disease, arterial disease or active cancer. Other medical history includes a pulmonary embolism in 11/2001, high blood pressure but on medi cation since 1990, tonsillectomy in 1972 and a gallbladder surgery in 1969. Patient also has history of pregnancies. HISTORY OF PRESENT ILLNESS/LYMPHEDEMA: On 08/25/2008, patient fell and landed on bilateral knees, right more than left, with immediate swelling around the right knee. CT scan and x-ray were performed. No fracture was shown. Patient states that since that fa ll she still feels a lot of swelling and fluid in her bilateral lower extremities and states that her ankles are more swollen than they have been in the past. Elevation does help with reducing swelling. Patient has had previous treatment for lymphedema included garments, manual lymph drainage, gradient compression bandaging and home exercise program in 2004 at [facility] with Kate Olvera. MEDICATIONS: Patient is taking Atenolol , Cozaar, Citrizine, Triamterene, Fluoxetine, Warfarin, and topical Dexamethasone and Hydrocortisone ointment as needed. ALLERGIES: Patient has numerous allergi es to many topical ointments like Lanoline. She is also allergic to Penicillin. SOCIAL HISTORY/HOME ENVIRONMENT: Kamini disla lives alone in a townhome with a flight of stairs with a rail. Patient is independent with all ADLs at home, but does state that the swelling has decreased her mobility and ability to get around. 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 Hobbies include crafts and arts like quilting, sewing, and needlework. Patient also likes to read and does like to walk when able. TRANSPORTATION: Patient continues to dr woodard and drove self to the evaluation. PATIENT'S IDENTIFIED PROBLEMS/FUNCTIONA L LIMITATIONS: Patient states it is difficult for her to walk for long periods of time, it is difficult for her to tie her shoes, and is difficult for her to be getting in and out of a vehicle. PATIENT'S IDENTIFIED GOALS: She wants t o be able to walk more and wants to be more active and move around. SYSTEMS REVIEW LOWER EXTREMITY/QUADRANT FUNCTION: SKIN INTEGRITY: Impaired. Skin is dry w ith hemosiderin staining on bilateral anterior calf and bethea area of bilateral lower extremities. SOFT TISSUE TEXTURE: Impaired. Patient presents with moderate to severe pitting edema in left anterior bethea and calf area, medial and lateral malleolus and top of foot; on the right lower extremity top of foot, medial and lateral malleolus, anterior a nd posterior bethea and calf area, as well as medial thigh area. Fibrotic soft tissue texture changes are at the right anterior bethea, calf area and medial thigh area, and in the left lower extremity anterior calf and bethea a zack and posterior area as well. STEMMER'S SIGN: Positive in bilateral f eet. Does edema resolve with elevation? Yes. GIRTH MEASUREMENTS: Impaired. LOWER EXTREMITY GIRTH MEASUREMENTS: Site Measured R (cm) L (cm) Great toe 9.0 10.1 MTP 29.6 27.9 Arch of foot 38.5 32.8 Calcaneous 40.2 39.3 10 cm 38.7 36.8 20 cm 39.8 44.7 30 cm 54.5 55.6 40 cm 66.2 61.7 50 cm 85.3 ?? 60 cm 95.1 86.5 70 cm 105.6 98.0 Total Volume 24,985 mL 22,049 mL Total volume indicates right lower extr emity is 11.8% greater than left lower extremity. Volume total does not include measurements distal to the smallest ankle. Total volume is calculated using a truncated formula for the volume of a cone. AROM: Impaired secondary to bilateral l ower extremity swelling and right knee pain. SENSATION: Patient has no complaints of impaired sensation. STRENGTH: Impaired secondary to decreas ed mobility since fall in 08/2008. ACTIVITIES OF DAILY LIVING (ADLS): Nancy ent is independent with activities of daily living but does state it takes her longer to get ready in the morning and to shower and bathe secondary to swelling. CARDIAC: Patient has high blood pressur e but is on blood pressure medication. COMMUNICATION/BEHAVIOR: Patient was ple asant and cooperative throughout the evaluation. She asked questions and is eager to learn. LEARNING BARRIERS: None. LEARNING PREFERENCES: Education will be in the format of demonstration, training and practice, written handouts and verbal instruction. Thank you, Dr. Brown, for refer ring this patient to the [facility]. If you have questions or concerns regarding the treatment of this patient, please feel free to call me at [phone]. This evaluation was completed by a [facility] Lymphedema Therapist. Electronically signed on 12/19/2008 15: 23 by ASHLIE LOU PT MT: desirae Name: MARZENA BRUSH Account: [id number] : 1945 Visit Date: 12/18/2008 Sex: F Age: 63 Document: [id number] Ashlie Lou PT REFERRAL documented in this encounter Visit Diagnoses Not on filedocumented in this encounter
--- OUTSIDE RECORDS SUMMARY | 2022-06-15 13:28 | XMS_ITS | Encounter Summary ---
:1945 Author Organization [place] Address [address] [place] [id number] Care Team Providers Name Role Phone Unavailable Primary Care Provider Unavailable Reason for Visit Reason Comments Anticoagulation Encounter Details Date Type Department Care Team Description 12/09/2008 [facility] [place] [facility] Eag an Anticoagulation Visit [address] [facility] [place] [id number] Social History Tobacco [...] this encounter Progress Notes Ayanna Reyes - 12/09/2008 8:52 AM CDT ANTICOAGULATION FOLLOW-UP CLINIC VISIT Patient Name: Charlette Brush Date: 12/09/2008 SUBJECTIVE: Bleeding Signs/Symptoms: None Thromboembolic Signs/Symptoms: None Medication Changes: Pt continues on same amount of Tylenol - 3000 mg qd; has not scheduled appt withorthopedics at this time. Dietary Changes: No Bacterial/Viral Infection: No Missed Coumadin Doses: None Other Concerns: No ASSESSMENT/PLAN: See: ANTICOAGULATION QIC flow sheet. [facility] ANTICOAGULATION CLINIC Prasanth Reyes RN documented in this encounter Nursing Notes 12/09/2008 8:15 AM CDT >> AYANNA REYES Tue December 09, 2008 8:54 AM Charlette Velma Brush presents for INR Estimated Body mass index is 64.95 kg/(m^2) as calculated from: Height of 5' 6.75 (1.695 m) as of 08/29/08 Weight of 411 lb 9.6 oz (186.701 kg) as of 12/01/08 Prasanth Reyes RN documented in this encounter Plan of Treatment Upcoming Encounters Date Type Specialty Care Team Description 11/15/2022 Virtual Visit Pharm Haylie Gonzalez, [facility] [address] [facility] [place] [address] (Lena max) 11/15/2022 Virtual Visit [place] [address] [place] [address] [address] [place] [id number] (Lena max) 03/03/2023 Virtual Visit Neurology Erlinda Barber MD [address] [facility] [address] [place] [address] (Lena max) documented as of this encounter Procedures Procedure Name Priority Date/Time Associated Diagnosis Comme nts HCL INR POCT Routine 12/09/2008 Encounter for Long-Term Resu lts for this (Current) Use of procedure a re in the Anticoagulants results secti on. documented in this encounter Results INR POINT OF CARE (12/09/2008) P athologist Signature INR Point of 2.9 [facility] Mari Esparza MD LABORATORY Performing Organization Address City/State/ZIP Code Phon e Number [facility] documented in this encounter Visit Diagnoses Diagnosis FDC (current) use of anticoagulant s Long-term (current) use of anticoagulant s documented in this encounter
--- OUTSIDE RECORDS SUMMARY | 2022-06-15 13:28 | XMS_ITS | Encounter Summary ---
:1945 Author Organization [facility] Address [address] [place] [address] Care Team Providers Name Role Phone Unavailable Primary Care Provider Unavailable Reason for Visit Reason Comments Blood Draw Encounter Details Date Type Department Care Team Description 12/29/2008 Orders Only [facility] Eag an Morbid Obesity (H) [address] [facility] [place] [address] Social History [...] Haylie Wakefield, [facility] [address] [place] [address] (Wo rk) 11/15/2022 Virtual Visit IM/Peds Yane Barraza MD [address] [facility] [place] [address] (Wo rk) 03/03/2023 Virtual Visit Neurology Erlinda Barber MD [address] [facility] [address] [place], [place] [address] (Wo rk) documented as of this encounter Procedures Procedure Name Priority Date/Time Associated Comments Diagnosis HCL COMPREHENSIVE Routine 12/29/2008 8:52 AM Morbid Obesity (H ) Results for this METABOLIC PANEL CDT procedure ar e in the results section. CL AFF A.M.A. LIPID Routine 12/29/2008 8:52 AM Morbid Obesity (H) Results for this PANEL CDT procedure are i n the results section. documented in this encounter Results A.M.A. COMPREHENSIVE MET.PANEL (12/29/2008 8:52 AM CDT) athologist Signature Sodium 140 133 - 144 [facility] mmol/L [facility] Potassium 4.2 3.4 - 5.3 [facility] mmol/L [facility] Chloride 104 94 - 109 [facility] mmol/L [facility] Carbon Dioxide 27 20 - 32 [facility] mmol/L [facility] Anion Gap 10 6 - 17 [facility] mmol/L [facility] Glucose 96 60 - 99 [facility] [place] mg/dL [facility] Urea Nitrogen 20 7 - 30 [facility] mg/dL [facility] Creatinine 0.64 0.52 - [facility] 1.04 mg/dL CLINIC LAB Comment: New IDMS-traceable calibration beginning 11/15/07 GFR Estimate >90 >60 mL/min/1.7m2 [facility] GFR Estimate If Black >90 >60 mL/min/1.7m2 [facility] Calcium 8.8 8.5 - 10.4 mg/dL [facility] Bilirubin Total 0.4 0.2 - 1.3 mg/dL [facility] Albumin 3.8 3.3 - 4.9 g/dL [facility] Comment: Reference range changed on 03/18. Protein Total 7.4 6.8 - 8.8 g/dL [facility] Comment: As of 07, reference range reflects plasma specimen type. Alkaline Phosphatase 95 40 - 150 U/L [facility] ALT 16 0 - 50 U/L [facility] CL[facility] LAB AST 30 0 - 45 U/L [facility] LAB Specimen Anatomical Collection Method Collection Time Receive d Time (Source) Location / / Volume Laterality 12/29/2008 8:52 AM 9 8:56 CDT AM CDT Mari Esparza MD LABORATORY Performing Organization Address City/[facility] Code Phon e Number [facility] [address] [place] [address] [facility] LAB (ABNORMAL) A.M.A. LIPID PANEL (12/29/2008 8:52 AM CDT) P athologist Signature Cholesterol 171 0 - 200 [facility] mg/dL CLINIC LAB Comment: LDL Cholesterol is the primary guide to therapy: LDL-cholesterol goal in high risk patients is <100 mg/dL and in very high risk patients is <70 mg/dL. The NCEP recommends further evaluation of: patients with cholesterol <200 mg/dL if additional risk factors are present, cholesterol >240 mg/dL, triglycerides >150 mg/dL, or HDL <40 mg/dL. Triglycerides 184 (H) 0 - 150 mg/dL [facility] HDL Cholesterol 40 (L) 50 - 110 mg/dL [facility] LDL Cholesterol Calculated 94 0 - 129 mg/dL [facility] Comment: LDL Cholesterol is the primary guide to therapy: LDL-cholesterol goal in high risk patients is <100 mg/dL and in very high risk patients is <70 mg/dL. VLDL-Cholesterol 37 (H) 0 - 30 mg/dL [facility] LAB Cholesterol/HDL Ratio 4.2 0.0 - 5.0 [facility] Specimen Anatomical Collection Method Collection Time Receive d Time (Source) Location / / Volume Laterality 12/29/2008 8:52 AM 9 8:56 CDT AM CDT Mari Esparza MD LABORATORY Performing Organization Address City/[facility]/ZIP Code Phon e Number [facility] [address] [place] [address] [facility] documented in this encounter Visit Diagnoses Diagnosis Morbid obesity (H) Morbid obesity documented in this encounter
--- OUTSIDE RECORDS SUMMARY | 2022-06-15 13:29 | XMS_ITS | Encounter Summary ---
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 [facility] ANTICOAGULATION CLINIC Qing Guy RN HELPER documented in this encounter Nursing Notes 08/25/2008 8:00 AM CST >> QING GUY Mon Aug 25, 2008 8:42 AM Charlette Carreon Tristinnithin presents for INR. Estimated Body mass index is 64.56 kg/(m^2) as calculated from: Height of 5' 6.25 (1.683 m) as of 03/31/08 Weight of 403 lb (182.8 kg) as of this encounter Qing Guy RN documented in this encounter Plan of Treatment Upcoming Encounters Date Type Specialty Care Team Description 11/15/2022 Virtual Visit Pharm D Haylie Cheung, [facility] [address] [facility] [place] [address] (Lena max) 11/15/2022 Virtual Visit IM/Peds Yane Barraza MD [address] [facility] [place] [address] (Lena max) 03/03/2023 Virtual Visit Neurology Erlinda Barber MD 420 [facility] [address] [place] [address] (Lena max) documented as of this encounter Procedures Procedure Name Priority Date/Time Associated Diagnosis Comme nts HCL INR POCT Routine 08/25/2008 Encounter for Long-Term Resu lts for this (Current) Use of procedure a re in the Anticoagulants results secti on. documented in this encounter Results INR POINT OF CARE (08/25/2008) P athologist Signature INR Point of 2.5 [facility] Mari Esparza MD LABORATORY Performing Organization Address City/State/ZIP Code Phon e Number [facility] documented in this encounter Visit Diagnoses Diagnosis USP (current) use of anticoagulant s Long-term (current) use of anticoagulant s Other pulmonary embolism and infarction documented in this encounter
--- OUTSIDE RECORDS SUMMARY | 2022-06-15 13:29 | XMS_ITS | Encounter Summary ---
:1945 Author Organization [facility] Address [address] [place] [address] Care Team Providers Name Role Phone Unavailable Primary Care Provider Unavailable Reason for Visit Reason Comments Anticoagulation Encounter Details Date Type Department Care Team Description 10/22/2007 Allied Health/[facility]urse [facility] Eag an Anticoagulation Visit [address] [facility] [...] - Inhaled Oxygen Concentration - - Weight 168.6 kg (371 lb 12.8 oz) 10/22/2007 8:00 AM CDT Height - - Body Mass Index 58.67 10/08/2007 12:45 PM CDT documented in this encounter Progress Notes Qing Guy - 10/22/2007 8:33 AM CDT ANTICOAGULATION FOLLOW-UP CLINIC VISIT Patient Name: Charlette Brush Date: 10/22/2007 SUBJECTIVE: Bleeding Signs/Symptoms: None Thromboembolic Signs/Symptoms: None Medication Changes: No Dietary Changes: Eating more green vegetables again Bacterial/Viral Infection: No Missed Coumadin Doses: None Other Concerns: No ASSESSMENT/PLAN: See: ANTICOAGULATION QIC flow sheet. [facility] Qing Guy RN documented in this encounter Nursing Notes 10/22/2007 8:00 AM CDT >> QING GUY 10/22/2007 8:45 am Charlette Brush presents for INR. Estimated Body mass index is 58.70 kg/(m^2) as calculated from: Height of 5' 6.75 (1.695 m) as of 10/08/07 Weight of 371 lbs 12.8 oz (168.647 kg) as of this encounter Qing Guy RN documented in this encounter Plan of Treatment Upcoming Encounters Date Type Specialty Care Team Description 11/15/2022 Virtual Visit Pharm Haylie Gonzalez, [facility] [address] [place] [address] (Lena max) 11/15/2022 Virtual Visit [place] [address] [place] [address] [place] [phone] (Lena max) 03/03/2023 Virtual Visit Neurology Erlinda Barber MD 420 [facility] [address] [place] [address] (Lena max) documented as of this encounter Procedures Procedure Name Priority Date/Time Associated Diagnosis Comme nts HCL INR POCT Routine 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
--- OUTSIDE RECORDS SUMMARY | 2022-06-15 13:29 | XMS_ITS | Encounter Summary ---
:1945 Author Organization [place] Address [address] [place] [address] Care Team Providers Name Role Phone Unavailable Primary Care Provider Unavailable Reason for Visit Reason Comments Physical Encounter Details Date Type Department Care Team Description 10/08/2007 Office Visit [facility] Xu Esparza ROUTI NE MEDICAL EXAM (Primary Dx); Yarelis PATEL LIPOID METABOL DIS NOS; 1440 [facility] B[facility]IGN [facility]YP[facility]ENSION; [place] [address] JASPER MORBID OBESITY (H); [phone] [address] [place] [address] (Wo rk) Social History Tobacco [...] Reading Time Taken Comments Blood Pressure 126/78 10/08/2007 12:45 PM CDT Pulse 64 10/08/2007 12:45 PM CDT Temperature - - Respiratory Rate - - Oxygen Saturation - - Inhaled Oxygen Concentration - - Weight 168.6 kg (371 lb 12.8 oz) 10/08/2007 12:45 PM CDT Height 169.5 cm (5' 6.75) 10/08/2007 12:45 PM CDT Body Mass Index 58.67 10/08/2007 12:45 PM CDT documented in this encounter Progress Notes Jennifer Alicia - 10/08/2007 1:52 PM CDT Addended by: JENNIFER ALICIA on: 10/08/2007 1:52:34 PM Modules accepted: Orders Xu Esparza - 10/08/2007 1:13 PM CDT SUBJECTIVE: Marzena Brush is a 62 year old female who presents for routine health maintenance exam. LMP: No LMP date recorded. Reason: Postmenopausal. HPI: fell yesterday, missed step going into someone's house. No head injury The patient's medical,family and social histories have been reviewed and updated as needed today. Contraception: none REVIEW OF SYSTEMS: CONSTITUTIONAL:NEGATIVE for fever, chills, [...] changes in mood or affect EXAM: BP 126/78 Pulse 64 Ht 5' 6.75 (1.70m) Wt 371 lbs 12.8 oz (168.6kg) LMP Postmenopausal BMI = Body mass index is 58.70 kg/(m^2). GENERAL APPEARANCE: healthy, alert and no distress [...] nodes ABDOMEN: soft, nontender, without hepatosplenomegaly or masses, bowel sounds normal and no hepatosplenomegaly or masses : normal cervix, adnexae, and uterus without masses or discharge MS: FROM on exam of UE, LE, neck, and back, No arthritis, or synovitis on exam. EXT: no cyanosis, clubbing or edema and peripheral pulses are brisk and symmetric in upper and lowerextremities SKIN: relatively clear for her NEURO: Normal strength and tone, mentation intact and speech normal PSYCH: mentation appears normal and affect normal/bright ASSESSMENT/IMPRESSION: 62 year old health maintenance exam Cardiac Risks: HTN and Age > 45 (male) or >55 (female) Patient's Goal LDL = <130 Patient is screened for GC and Chlamydia: No V70.0 ROUTINE MEDICAL EXAM (primary encounter diagnosis) Note: Plan: MAMMOGRAM, SCREENING 272.9 LIPOID METABOL DIS NOS Note: Plan: A.M.A. LIPID PANEL 401.1 BENIGN HYPERTENSION Note: Plan: TSH W/FREE T4 REFLEX, A.M.A. COMPREHENSIVE MET.PANEL, COZAAR 50 MG OR TABS, TRIAMTERENE-HCTZ 37.5-25 MG OR CAPS, ATENOLOL 25 MG OR TABS 278.01 MORBID OBESITY Note: Plan: FLUOXETINE HCL 20 MG OR TABS I have discussed with the patient the risks, benefits, and treatment options of prescribed medications or other treatment modalities. I have instructed the patient to call or schedule a follow-up appointment for any problems or failure to improve. I have also discussed the importance of a balanced diet and regular exercise, osteoporosis prevention and accident prevention. Jennifer Alicia - 10/08/2007 12:51 PM CDT HEALTH CARE MAINTENANCE: Ever had an abnormal pap? Yes - date: about 10 years ago Menses are every na days; lasting for na days. Flow is na. Menstrual Pain? na PMS symptoms? na Have you had a pneumonia shot? Yes - date: 05/13/05 How many dairy products do you eat daily? 3 Have you had an eye exam in the past year? YES Health Maintenance Reviewed: Health Maintenance Topic Date Due ??? Dexa q3 yr 01/05/1976 ??? Pap q 2 years 09/07/2007 ??? Colonoscopy q10 yr. 02/12/2014 ??? Ldl q 5 yrs 01/07/2012 ??? Mammo q2 yr no inbasket message 01/03/2008 ??? Tetanus q10 yr 08/27/2014 SAFETY: ======= Do you exercise? NO If yes, how many times per week? Do you feel safe in your relationship(s)? Not in a relationship Do you have a gun in your home? No Do you wear your seatbelt regularly? YES Do you use sunscreen? YES Are you fasting today? Yes documented in this encounter Nursing Notes 10/08/2007 12:45 PM CDT >> JENNIFER ALICIA 10/08/2007 12:51 pm Marzena Brush presents for physical. Initial BP 126/78 Pulse 64 Ht 5' 6.75 (1.70m) Wt 371 lbs 12.8 oz (168.6kg) LMP Postmenopausal Body mass index is 58.70 kg/(m^2).. BP completed using cuff size: large documented in this encounter Plan of Treatment Upcoming Encounters Date Type Specialty Care Team Description 11/15/2022 Virtual Visit Pharm Haylie Gonzalez, [facility] [address] [place] [address] (Wo rk) 11/15/2022 Virtual Visit IM/Peds Yane Barraza MD [address] [place] [address] (Wo rk) 03/03/2023 Virtual Visit Neurology Erlinda Barber MD 420 [facility] [address] [place] [address] (Wo rk) documented as of this encounter Procedures Procedure Name Priority Date/Time Associated Diagnosis Comme nts HCL COMPREHENSIVE Routine 10/08/2007 1:15 Benign Hypertension Results for this METABOLIC PANEL PM CDT procedure ar e in the results section. HCL TSH W/FREE T4 Routine 10/08/2007 1:15 Benign Hypertension Results for this REFLEX PM CDT procedure are i n the results section. CL AFF A.M.A. LIPID Routine 10/08/2007 1:15 Lipoid Metabol Dis Results for this PANEL PM CDT Nos procedure are i n the results section. HCL PAP THIN LAYER Routine 10/08/2007 12:00 Screening Mal Resu lts for this SCREEN AM CDT Neop-Cervix procedure are i n the results section. documented in this encounter Results A.M.A. COMPREHENSIVE MET.PANEL (10/08/2007 1:15 PM CDT) P athologist Signature Sodium 140 133 - 144 [place] [facility] mmol/L [facility]INIC [facility] Potassium 4.1 3.4 - 5.3 [facility] [facility] mmol/L [facility] Chloride 103 94 - 109 [place] [facility] mmol/L [facility] Carbon Dioxide 31 20 - 32 [place] [facility] mmol/L [facility] Anion Gap 6 6 - 17 [facility] [facility] mmol/L [facility] Glucose 85 60 - 99 [place] mg/dL [facility]IC LAB Urea Nitrogen 12 7 - 30 [place] mg/dL [facility] Creatinine 0.76 0.60 - [place] [facility] 1.30 mg/dL CLINIC LAB GFR Estimate 82 >60 [place] [facility] mL/min/1.7 CLINIC LAB m2 GFR Estimate If >90 >60 [facility] Black mL/min/1.7 CLINIC LAB m2 Calcium 8.9 8.5 - 10.4 [facility] mg/dL CLINIC LAB Bilirubin Total 0.6 0.2 - 1.3 [facility] mg/dL [facility] LAB Albumin 3.8 3.2 - 4.5 [facility] g/dL CLINIC LAB Protein Total 7.4 6.0 - 8.2 [facility] g/dL [facility] Alkaline 114 40 - 150 [facility] Phosphatase U/L CLINIC LAB ALT 8 0 - 50 U/L [facility] AST 23 0 - 45 U/L [facility] LAB Specimen Anatomical Collection Method Collection Time Receive d Time (Source) Location / / Volume Laterality 10/08/2007 1:15 PM 8 1:20 CDT PM CDT Xu Esparza MD LABORATORY Performing Organization Address City/[facility]/ZIP Code Phon e Number [facility] [address] [place] [address] [facility] TSH W/FREE T4 REFLEX (10/08/2007 1:15 PM CDT) athologist Signature TSH 1.19 0.4 - 5.0 [facility] mU/L [facility] LAB Specimen Anatomical Collection Method Collection Time Receive d Time (Source) Location / / Volume Laterality 10/08/2007 1:15 PM 8 1:20 CDT PM CDT uX Esparza MD LABORATORY Performing Organization Address City/State/ZIP Code Phon e Number [facility] [address] [place] [address] [facility] (ABNORM[facility]) A.M.A. LIPID PANEL (10/08/2007 1:15 PM CDT) athologist Signature Cholesterol 194 0 - 200 [facility] mg/dL CLINIC LAB Comment: LDL Cholesterol is the primary guide to therapy: LDL-cholesterol goal in high risk patients is <100 mg/dL and in very high risk patients is <70 mg/dL. The NCEP recommends further evaluation of: patients with cholesterol <200 mg/dL if additional risk factors are present, cholesterol >240 mg/dL, triglycerides >150 mg/dL, or HDL <40 mg/dL. Triglycerides 263 (H) 0 - 150 mg/dL [facility] LAB HDL Cholesterol 35 (L) 50 - 110 mg/dL [facility] LDL Cholesterol Calculated 106 0 - 129 mg/dL [facility] Comment: LDL Cholesterol is the primary guide to therapy: LDL-cholesterol goal in high risk patients is <100 mg/dL and in very high risk patients is <70 mg/dL. VLDL-Cholesterol 53 (H) 0 - 30 mg/dL [facility] Cholesterol/HDL Ratio 5.5 (H) 0.0 - 5.0 [facility] LAB Specimen Anatomical Collection Method Collection Time Receive d Time (Source) Location / / Volume Laterality 10/08/2007 1:15 PM 8 1:20 CDT PM CDT Xu Esparza MD LABORATORY Performing Organization Address City/State/ZIP Code Phon e Number [address] [address] [facility] A THIN LAYER PAP SCREEN (10/08/2007 12:00 AM CDT) Component Value Ref Test Analysis Performed At [facility] Range Method Time Signature PAP NIL COPATH Copath Report COPATH Patient Name: MARZENA BRUSH MR#: [id number] Specimen #: [id number] Collected: 10/08/2007 Received: 10/08/2007 Reported: 10/09/2007 15:39 Ordering Phy(s): XU ESPARZA SPECIMEN/STAIN PROCESS: Pap thin layer prep screening ([facility]) ? Pap-Cyto x 1, Reflex HPV x 1 SOURCE: Cervical, endocervical ---- Pap thin layer prep screening ([facility]) SPECIMEN ADEQUACY: Satisfactory for evaluation. -Transformation zone component present. CYTOLOGIC INTERPRETATION: Negative for Intraepithelial Lesion or Malignancy Electronically signed out by: MAREN Montgomery (ASCP) Processed and screened at [facility] emily [facility] CLINICAL HISTORY: Post Menopausal, Previous normal pap Date of Last Pap: 09-05-05, TESTING LAB LOCATION: [address] ??[phone] COLLECTION SITE: Client: ??[facility] Location: [facility] (R) Specimen (Source) Anatomical Collection Method Collection Time Re ceived Time Location / / Volume Laterality 10/08/2007 10/08/2007 7:55 PM CDT Xu Esparza MD LABORATORY Performing Organization Address City/State/ZIP Code Phon e Number [facility] documented in this encounter Visit Diagnoses Diagnosis Routine general medical examination at a health care facility - Primary Unspecified disorder of lipoid metabolis m Essential hypertension, benign Morbid obesity (H) Morbid obesity Screening for malignant neoplasm of the cervix documented in this encounter
--- OUTSIDE RECORDS SUMMARY | 2022-06-15 13:29 | XMS_ITS | Encounter Summary ---
:1945 Author Organization [facility] Address [address] [place] [address] Care Team Providers Name Role Phone Unavailable Primary Care Provider Unavailable Reason for Visit Reason Comments Anticoagulation Encounter Details Date Type Department Care Team Description 12/03/2007 Allied Health/Nurse [facility] Eag an Anticoagulation Visit [address] [...] - Inhaled Oxygen Concentration - - Weight 170.5 kg (375 lb 12.8 oz) 12/03/2007 8:00 AM CDT Height - - Body Mass Index 59.3 10/08/2007 12:45 PM CDT documented in this encounter Progress Notes Qing Guy - 12/03/2007 8:16 AM CDT ANTICOAGULATION FOLLOW-UP CLINIC VISIT Patient Name: Charlette Brush Date: 12/03/2007 SUBJECTIVE: Bleeding Signs/Symptoms: None Thromboembolic Signs/Symptoms: None Medication Changes: Taking Tylenol for left hip pain Dietary Changes: No Bacterial/Viral Infection: No Missed Coumadin Doses: None Other Concerns: No ASSESSMENT/PLAN: See: ANTICOAGULATION QIC flow sheet. [facility] Qing Guy RN documented in this encounter Nursing Notes 12/03/2007 8:00 AM CDT >> QING GUY Mon December 03, 2007 8:23 AM Charlette Brush presents for INR. Estimated Body mass index is 59.30 kg/(m^2) as calculated from: Height of 5' 6.75 (1.695 m) as of 10/08/07 Weight of 375 lb 12.8 oz (170.462 kg) as of this encounter Qing Guy RN documented in this encounter Plan of Treatment Upcoming Encounters Date Type Specialty Care Team Description 11/15/2022 Virtual Visit Pharm Haylie Gonzalez, [facility] [address] [facility] [address] [place] [phone] (Lena max) 11/15/2022 Virtual Visit IM[place] [address] [place] [address] [place] [phone] (Lena max) 03/03/2023 Virtual Visit Neurology Erlinda Barber MD [address] [facility] [address] [place], [place] [phone] (Lena max) documented as of this encounter Procedures Procedure Name Priority Date/Time Associated Diagnosis Comme nts HCL INR POCT Routine 12/03/2007 Encounter for Long-Term Resu lts for this (Current) Use of procedure a re in the Anticoagulants results secti on. documented in this encounter Results INR POINT OF CARE (12/03/2007) P athologist Signature INR Point of 2.8 [facility] Mari Esparza MD LABORATORY Performing Organization Address City/State/ZIP Code Phon e Number [facility] documented in this encounter Visit Diagnoses Diagnosis half-way (current) use of anticoagulant s Long-term (current) use of anticoagulant s documented in this encounter
--- OUTSIDE RECORDS SUMMARY | 2022-06-15 13:29 | XMS_ITS | Encounter Summary ---
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 EA ANTICOAGULATION CLINIC Qing Guy RN SPORTATION ECONOMICS TEACHER documented in this encounter Nursing Notes 07/14/2008 8:00 AM CST >> QING GUY Mon Jul 14, 2008 8:36 AM Charlette Carreon Tristinnithin presents for INR. Estimated Body mass index is 63.98 kg/(m^2) as calculated from: Height of 5' 6.25 (1.683 m) as of 03/31/08 Weight of 399 lb 6.4 oz (181.167 kg) as of this encounter Qing Guy RN documented in this encounter Plan of Treatment Upcoming Encounters Date Type Specialty Care Team Description 11/15/2022 Virtual Visit Pharm Haylie Gonzalez, [facility] [address] [facility] [place] [address] (Lena max) 11/15/2022 Virtual Visit IM/Peds Yane Barraza MD [address] [facility] [place] [phone] (Lena max) 03/03/2023 Virtual Visit Neurology Erlinda Barber MD 420 [facility] [address] [place] [address] (Lena max) documented as of this encounter Procedures Procedure Name Priority Date/Time Associated Diagnosis Comme nts HCL INR POCT Routine 07/14/2008 Encounter for Long-Term Resu lts for this (Current) Use of procedure a re in the Anticoagulants results secti on. documented in this encounter Results INR POINT OF CARE (07/14/2008) P athologist Signature INR Point of 2.7 [facility] Mari Esparza MD LABORATORY Performing Organization Address City/State/ZIP Code Phon e Number [facility] documented in this encounter Visit Diagnoses Diagnosis assisted (current) use of anticoagulant s Long-term (current) use of anticoagulant s documented in this encounter
--- OUTSIDE RECORDS SUMMARY | 2022-06-15 13:29 | XMS_ITS | Encounter Summary ---
:1945 Author Organization [facility] Address [address] [place] [address] Care Team Providers Name Role Phone Unavailable Primary Care Provider Unavailable Reason for Visit Reason Comments Anticoagulation Encounter Details Date Type Department Care Team Description 08/11/2008 Allied Health/[facility] Eag an Anticoagulation Visit 14[address] [place] [...] - Inhaled Oxygen Concentration - - Weight 181.8 kg (400 lb 14.4 oz) 08/11/2008 8:00 AM DOCUMENTATION CONSULTANT Height - - Body Mass Index 64.22 03/31/2008 8:30 AM CDT documented in this encounter Progress Notes Qing Guy - 08/11/2008 8:18 AM CST ANTICOAGULATION FOLLOW-UP CLINIC VISIT Patient Name: Charlette Brush Date: 08/11/2008 SUBJECTIVE: Bleeding Signs/Symptoms: None Thromboembolic Signs/Symptoms: None Medication Changes: Yes - started on Avapro 300mg instead of Cozaar last week Dietary Changes: No Bacterial/Viral Infection: No Missed Coumadin Doses: None Other Concerns: No ASSESSMENT/PLAN: See: ANTICOAGULATION QIC flow sheet. ANTICOAGULATION CLINIC Qing Guy RN MENTATION CONSULTANT documented in this encounter Nursing Notes 08/11/2008 8:00 AM CST >> QING GUY Mon Aug 11, 2008 9:25 AM Charlette Carreon Tristinnithin presents for INR. Estimated Body mass index is 64.22 kg/(m^2) as calculated from: Height of 5' 6.25 (1.683 m) as of 03/31/08 Weight of 400 lb 14.4 oz (181.847 kg) as of this encounter Qing Guy RN documented in this encounter Plan of Treatment Upcoming Encounters Date Type Specialty Care Team Description 11/15/2022 Virtual Visit Pharm Haylie Gonzalez, [facility] [address] [facility] [place] [address] (Lena max) 11/15/2022 Virtual Visit [place] [address] [place] [address] [place] [phone] (Lena max) 03/03/2023 Virtual Visit Neurology Erlinda Barber MD 420 [facility] 295 [place], [place] [address] (Lena max) documented as of this encounter Procedures Procedure Name Priority Date/Time Associated Diagnosis Comme nts HCL INR POCT Routine 08/11/2008 Encounter for Long-Term Resu lts for this (Current) Use of procedure a re in the Anticoagulants results secti on. documented in this encounter Results INR POINT OF CARE (08/11/2008) P athologist Signature INR Point of 3.3 [facility] Mari Esparza MD LABORATORY Performing Organization Address City/State/ZIP Code Phon e Number [facility] documented in this encounter Visit Diagnoses Diagnosis [facility] (current) use of anticoagulant s Long-term (current) use of anticoagulant s documented in this encounter
--- OUTSIDE RECORDS SUMMARY | 2022-06-15 13:29 | XMS_ITS | Encounter Summary ---
:1945 Author Organization [facility] Address [address] [place] [address] Care Team Providers Name Role Phone Unavailable Primary Care Provider Unavailable Reason for Visit Reason Onset Date Comments Fall 08/27/2008 R knee pain Encounter Details Date Type Department Care Team Description 08/27/2008 Telephone [facility] Mari Beard MD Fall (R knee pain) 14[address] [facility] [place] [phone] [address] [phone] [place] [address] (Wo rk) Social History Tobacco [...] encounter Miscellaneous Notes Telephone Encounter - Patience German 08/27/2008 11:28 AM CST Redirected to for f/u --- Present for concerns of injury: Location: Right knee pain muscle contractions in my bethea below my knee and also above knee. Occured how long ago?: 1d ago Happened while: at home How?: Tripped on a rug in house at 9pm last night. Pain severity currently: 5 while resting; 8 when tries to move, on a scale of 1-10 Current associated symptoms: Swelling; Bruising, Takes coumadin Therapies to improve symptoms include: ibuprofen, ice, rest and Tylenol is not the first time this type of injury has occurred to this patient. Last time fell on steps and injured same R knee. Able to stand immediately after injury. Able to walk now but very gingerly. Patience Vizcaino RN RER documented in this encounter Plan of Treatment Upcoming Encounters Date Type Specialty Care Team Description 11/15/2022 Virtual Visit Pharm Haylie Gonzalez, [facility] [address] [place] [address] (Lena max) 11/15/2022 Virtual Visit [place] [address] [place] [address] [place] [phone] (Lena max) 03/03/2023 Virtual Visit Neurology Erlinda Barber MD 420 [facility] 295 [place] [address] (Lena max) documented as of this encounter Visit Diagnoses Not on filedocumented in this encounter
--- OUTSIDE RECORDS SUMMARY | 2022-06-15 13:29 | XMS_ITS | Encounter Summary ---
:1945 Author Organization [facility] Address [address] [place] [address] Care Team Providers Name Role Phone Unavailable Primary Care Provider Unavailable Reason for Visit Reason Comments Anticoagulation Flu Shot Encounter Details Date Type Department Care Team Description 05/05/2008 Allied Health/[facility]urse [facility] Eag an Anticoagulation; Flu Visit [address] [facility] [place] [id number] Social History Tobacco [...] - Inhaled Oxygen Concentration - - Weight 126.9 kg (279 lb 11.2 oz) 05/05/2008 8:00 AM CDT Height - - Body Mass Index 44.8 03/31/2008 8:30 AM CDT documented in this encounter Progress Notes Qing Guy - 05/05/2008 8:28 AM CDT ANTICOAGULATION FOLLOW-UP CLINIC VISIT Patient Name: Charlette Brush Date: 05/05/2008 SUBJECTIVE: Bleeding Signs/Symptoms: None Thromboembolic Signs/Symptoms: None Medication Changes: Taking less Tylenol Dietary Changes: No Bacterial/Viral Infection: No Missed Coumadin Doses: None Other Concerns: No ASSESSMENT/PLAN: See: ANTICOAGULATION QIC flow sheet. ANTICOAGULATION CLINIC Qing Guy RN Injectable Influenza Immunization Documentation 1. Has the patient received the information for the injectable influenza vaccine? YES 2. Is the patient 6 months of age or older? YES 3. Does the patient have any of the following contraindications? Severe allergy to eggs? No Severe allergic reaction to previous influenza vaccines? No Allergy to contact lens solution/thimerosol? No History of Guillain-Haverhill syndrome? No Currently have moderate or severe illness? No 3. The vaccine has been administered and the patient was instructed to wait 15 minutes before leaving the building in the event of an allergic reaction: YES Vaccination given by Qing Guy RN See immunization record for details. documented in this encounter Nursing Notes 05/05/2008 8:00 AM CDT >> QING GUY Mon May 05, 2008 8:40 AM Charlette Brush presents for INR. Estimated Body mass index is 44.80 kg/(m^2) as calculated from: Height of 5' 6.25 (1.683 m) as of 03/31/08 Weight of 279 lb 11.2 oz (126.871 kg) as of this encounter Qing Guy RN documented in this encounter Plan of Treatment Upcoming Encounters Date Type Specialty Care Team Description 11/15/2022 Virtual Visit Haylie Wakefield, [facility] [address] [facility] [place] [address] (Wo rk) 11/15/2022 Virtual Visit IM/Peds Yane Barraza MD [address] [facility] [place] [address] (Wo rk) 03/03/2023 Virtual Visit Neurology Erlinda Barber MD [address] [facility] 295 [place], [place] [address] (Wo rk) documented as of this encounter Procedures Procedure Name Priority Date/Time Associated Diagnosis Comme nts HCL INR POCT Routine 05/05/2008 Encounter for Long-Term Resu lts for this (Current) Use of procedure a re in the Anticoagulants results secti on. documented in this encounter Results INR POINT OF CARE (05/05/2008) P athologist Signature INR Point of 3.0 [facility] Mari Esparza MD LABORATORY Performing Organization Address City/State/ZIP Code Phon e Number [facility] documented in this encounter Visit Diagnoses Diagnosis retirement (current) use of anticoagulant s - Primary Long-term (current) use of anticoagulant s Need for prophylactic vaccination and in oculation against influenza documented in this encounter
--- OUTSIDE RECORDS SUMMARY | 2022-06-15 13:29 | XMS_ITS | Encounter Summary ---
:1945 Author Organization [facility] Address [address] [place] [address] Care Team Providers Name Role Phone Unavailable Primary Care Provider Unavailable Reason for Visit Reason Comments Anticoagulation Encounter Details Date Type Department Care Team Description 02/11/2008 Allied Health/[facility]urse [facility] Eag an Anticoagulation Visit [facility] [facility] [...] - Inhaled Oxygen Concentration - - Weight 171.6 kg (378 lb 4.8 oz) 02/11/2008 8:00 AM CDT Height - - Body Mass Index 59.69 10/08/2007 12:45 PM CDT documented in this encounter Progress Notes Qing Guy - 02/11/2008 8:04 AM CDT ANTICOAGULATION FOLLOW-UP CLINIC VISIT Patient Name: Charlette Brush Date: 02/11/2008 SUBJECTIVE: Bleeding Signs/Symptoms: None Thromboembolic Signs/Symptoms: None Medication Changes: Continues to take 3000mg Tylenol a day for hip pain Dietary Changes: No Bacterial/Viral Infection: No Missed Coumadin Doses: None Other Concerns: No ASSESSMENT/PLAN: See: ANTICOAGULATION QIC flow sheet. ANTICOAGULATION CLINIC Qing Guy RN documented in this encounter Nursing Notes 02/11/2008 8:00 AM CDT >> QING GUY Mon Feb 11, 2008 8:11 AM Charlette Brush presents for INR. Estimated Body mass index is 59.69 kg/(m^2) as calculated from: Height of 5' 6.75 (1.695 m) as of 10/08/07 Weight of 378 lb 4.8 oz (171.596 kg) as of this encounter Qing Guy RN documented in this encounter Plan of Treatment Upcoming Encounters Date Type Specialty Care Team Description 11/15/2022 Virtual Visit Pharm D Haylie Cheung, [facility] [address] [facility] [place] [address] (Lena max) 11/15/2022 Virtual Visit [place] [address] [place] [address] [place] [phone] (Lena max) 03/03/2023 Virtual Visit Neurology Erlinda Barber MD 420 [facility] 295 [place], [place] [phone] (Lena max) documented as of this encounter Procedures Procedure Name Priority Date/Time Associated Diagnosis Comme nts HCL INR POCT Routine 02/11/2008 Encounter for Long-Term Resu lts for this (Current) Use of procedure a re in the Anticoagulants results secti on. documented in this encounter Results INR POINT OF CARE (02/11/2008) P athologist Signature INR Point of 2.1 [facility] Mari Esparza MD LABORATORY Performing Organization Address City/State/ZIP Code Phon e Number [facility] documented in this encounter Visit Diagnoses Diagnosis group home (current) use of anticoagulant s - Primary Long-term (current) use of anticoagulant s documented in this encounter
--- OUTSIDE RECORDS SUMMARY | 2022-06-15 13:29 | XMS_ITS | Encounter Summary ---
:1945 Author Organization [facility] Address [address] [place] [address] Care Team Providers Name Role Phone Unavailable Primary Care Provider Unavailable Reason for Visit Reason Comments Anticoagulation Encounter Details Date Type Department Care Team Description 06/02/2008 Allied Health/[facility]urse [facility] Eag an Anticoagulation Visit 1440 [facility] [place] [phone] Social History Tobacco [...] - Inhaled Oxygen Concentration - - Weight 177.3 kg (390 lb 12.8 oz) 06/02/2008 8:15 AM BUSINESS DEVELOPMENT INTERN Height - - Body Mass Index 62.6 03/31/2008 8:30 AM CDT documented in this encounter Progress Notes Qing Guy - 06/02/2008 8:23 AM CST ANTICOAGULATION FOLLOW-UP CLINIC VISIT Patient Name: Charlette Brush Date: 06/02/2008 SUBJECTIVE: Bleeding Signs/Symptoms: None Thromboembolic Signs/Symptoms: None Medication Changes: No Dietary Changes: No Bacterial/Viral Infection: No Missed Coumadin Doses: None Other Concerns: No ASSESSMENT/PLAN: See: ANTICOAGULATION QIC flow sheet. EA ANTICOAGULATION CLINIC Qing Guy RN NESS DEVELOPMENT INTERN documented in this encounter Nursing Notes 06/02/2008 8:15 AM CST >> QING GUY Mon Jun 02, 2008 8:31 AM Charlette Stilessevennithin presents for INR. Estimated Body mass index is 62.60 kg/(m^2) as calculated from: Height of 5' 6.25 (1.683 m) as of 03/31/08 Weight of 390 lb 12.8 oz (177.266 kg) as of this encounter Qing Guy RN documented in this encounter Plan of Treatment Upcoming Encounters Date Type Specialty Care Team Description 11/15/2022 Virtual Visit Pharm Haylie Gonzalez, [facility] 14[address] [facility] [place] [address] (Lena max) 11/15/2022 Virtual Visit IM/Peds Yane Barraza MD [address] [facility] [place] [phone] (Lena max) 03/03/2023 Virtual Visit Neurology Erlinda Barber MD 420 [facility] 295 [place] [address] (Lena max) documented as of this encounter Procedures Procedure Name Priority Date/Time Associated Diagnosis Comme nts HCL INR POCT Routine 06/02/2008 Encounter for Long-Term Resu lts for this (Current) Use of procedure a re in the Anticoagulants results secti on. 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
--- OUTSIDE RECORDS SUMMARY | 2022-06-15 13:29 | XMS_ITS | Encounter Summary ---
:1945 Author Organization [facility] Address [address] [place] [address] Care Team Providers Name Role Phone Unavailable Primary Care Provider Unavailable Reason for Visit Reason Onset Date Comments Medication Question 08/25/2008 Avapro Encounter Details Date Type Department Care Team Description 08/25/2008 Telephone [facility] Mari Larsen, Medication Question 1440 Jonnie Oviedo MD (Avapro) [place] [phone] AYLA COOK [phone] [place] [address] [place] [address] (Wo rk) Social [...] encounter Miscellaneous Notes Telephone Encounter - Jennifer Alicia - 08/25/2008 1:13 PM CST JENNIFER PATIENT RETURNING YOUR CALL PLEASE CALL HER BACK AT [facility] [phone] Pt notified of the below message, she does want to go back on cozaar. Jennifer Alicia LPN Please verify doseing. Jennifer Alicia LPN ING EQUIPMENT OPERATOR Telephone Encounter - Jennifer Alicia - 08/25/2008 10:07 AM CST L.M. For pt to call the clinic. Jennifer Alicia LPN ING EQUIPMENT OPERATOR Telephone Encounter - Mari Esparza - 08/25/2008 9:23 AM CST The Avapro should be no different than the cozaar with respect to side effects. The issues she listswith respect to package discussing swelling and triamterene are the same for cozaar as well, these issues are not specific to Avapro. That being said there are always cases where one drug in a class has side effects for any given person vs a different one. If she wants to go back on the cozaar I am fine with that she will just have to pay more with her insurance as the reason we switched to avapro was due to insurance sending us a letter stating the Avapro was cheaper due to their tiers. ING EQUIPMENT OPERATOR Telephone Encounter - Qing Guy - 08/25/2008 8:21 AM CST Pt was in for INR and had concerns about Avapro. Started it about a month ago. Has noticed dipper and drier skin and swelling in ankles and feet. Has gained 4 lbs since starting med. Package insert says swelling is a side effect and it also says not to take it if you are taking triamterene, which she is. Are these things she should be concerned about. She had been doing fine on Cozaar. Should she go back to it? She can be reached at [phone]. OK to leave a detailed message. Qing Guy RN ING EQUIPMENT OPERATOR documented in this encounter Plan of Treatment Upcoming Encounters Date Type Specialty Care Team Description 11/15/2022 Virtual Visit Pharm D Haylie Cheung, [facility] 1440 [facility] [place] [address] (Wo winter) 11/15/2022 Virtual Visit IM/Peds Yane Barraza MD 3[address] [facility] [place] [address] (Wo winter) 03/03/2023 Virtual Visit Neurology Erlinda Barber MD 420 [facility] 295 [place] [address] (Lena max) documented as of this encounter Visit Diagnoses Diagnosis Essential hypertension, benign - Primary documented in this encounter
--- OUTSIDE RECORDS SUMMARY | 2022-06-15 13:29 | XMS_ITS | Encounter Summary ---
:1945 Author Organization [facility] Address [address] [place] [address] Care Team Providers Name Role Phone Unavailable Primary Care Provider Unavailable Reason for Visit Reason Onset Date Comments Hypertension 04/07/2008 check Results 04/07/2008 from 03/31/08 Encounter Details Date Type Department Care Team Description 04/07/2008 Telephone [facility] Mari Beard, Hypertension (check); 1440 [facility] Results (from 03/31/08) [place] [phone] AYLA COOK [phone] [place] [address] [place] [address] (Wo rk) Social [...] Notes Telephone Encounter - Qing Guy - 04/07/2008 9:17 AM CDT Charlette Brush is a 63 year old female who comes in today for INR and a Blood Pressure check becauseof medication change. Pulse: 76 BP: 126/78 Vitals as recorded, a thigh cuff was used. Patient is taking medication as prescribed Patient is tolerating medications well. Patient is not monitoring Blood Pressure at home. Current complaints: none Disposition: results routed to MD. She would like the results of lab done on 03/31/08. Qing Guy RN documented in this encounter Plan of Treatment Upcoming Encounters Date Type Specialty Care Team Description 11/15/2022 Virtual Visit Pharm Haylie Gonzalez K sunday Rojas, [facility] 1440 [facility] [place] [phone] (Lena max) 11/15/2022 Virtual Visit IM/Yane Mathias MD 3305 [facility] [place] [phone] (Lena max) 03/03/2023 Virtual Visit Neurology Erlinda Barber MD 420 [facility] 295 [place], [place] [address] (Lena max) documented as of this encounter Visit Diagnoses Not on filedocumented in this encounter
--- OUTSIDE RECORDS SUMMARY | 2022-06-15 13:29 | XMS_ITS | Encounter Summary ---
:1945 Author Organization [place] Address [address] [place] [address] Care Team Providers Name Role Phone Mari Esparza MD Primary Care Provider Encounter Details Date Type Department Care Team Description 01/23/2008 Office Visit-[facility] Dermatology Ashwini Miller 5th Floor, Clinic 5A MD Roland Thomas[address] [place] [address] [place] [address] Social History Tobacco Use Types [...] documented as of this encounter Progress Notes Ashwini Miller - 01/23/2008 9:15 AM CDT Drosophere Operator: Ashwini Miller Status: Final - Signature Encounter: 23 Jan 2008 Type: Dermatology Visit Department of Dermatology [place] Mail Code [address] [place] [address] Dermatology Clinic [facility] Fifth Floor, Clinic 5A [address] [place] [address] Appt RE: Charlette Brush : 1945 DIRK: 01/23/2008 OUTPATIENT VISIT NOTE HISTORY OF PRESENT ILLNESS: Patient is a 63-year-old female, well-known with me, with a history of severe allergic contact dermatitis and stasis dermatitis. She has very limited topical medications that she can use. She was seen by myself July 2007. At that time she was to continue her Topicort geland hydrocortisone 2.5% ointment. She reports that her skin is the same or a touch better since her last visit. She has not been able to wear her compression stockings due to pain from a torn cartilage in her left hip, but otherwise she is in good health. Her main question today is about what type of sun screen she should use, as she is very limited with topicals that she can use. Her reactions included 2 or 3+ reactions to Bactroban cream. She also failed the use test for Bactroban ointment, Moisturel, Nutraderm, clotrimazole cream, amcinonide, budesonide, amercholl 101 and bacitracin. She did have mild reactions to Aveeno moisturizing lotion, hydrocortisone 2.5% cream, Elidel cream, hydrocortisone 1% cream, balsam of [place], euxylk 400 and benzyl alcohol. She had doubtful reactions to Vanicreamlight, ombrelle, Jenni, Walsporin ointment, Suave shampoo, Bactroban ointment, Paraben mix and benzoyl peroxide. The question of the Vanicream light was confusing as they could not find any specific irritation with it. She has tolerated Vanicream in the past. PHYSICAL EXAMINATION: Patient is a well-appearing female in no acute distress. The patient is a Andre skin type I skin. Please note the nursing note for vital signs. She does have pitting edema bilaterally on her lower extremities. There is some mild stasis changes with mild erythema, minimal scaling. On her anterior tibia, some mild areas of hyperpigmented, otherwise no active areas of dermatitis of the face, trunk or upper or lower extremities. ASSESSMENT/PLAN: History of severe contact dermatitis and stasis dermatitis. Overall the patient is doing fairly well. She does her current regimen of Topicort 0.05% gel and 2.5% hydrocortisone ointment to use as needed. Refills were given to the patient today. I did give her a sample of Vanicream SPF60 which is a physical uzair. We will do a use test first on her arm. If she reacts to it we will not use it further. It may be difficult to find a sun screen otherwise for this patient. I will otherwise plan to see the patient back in four to five months. Ashwini Miller M.D. Continuous Improvement [place] Department of Dermatology KB:ca Electronically signed by:ASHWINI MILLER M.D. Jan 28 2008 8:07AM SKYLIGHTS ASSEMBLER documented in this encounter Plan of Treatment Upcoming Encounters Date Type Specialty Care Team Description 11/15/2022 Virtual Visit Pharm Haylie Gonzalez, [facility] [address] [facility] [place] [address] (Lena max) 11/15/2022 Virtual Visit IM/Peds Yane Barraza MD [address] [facility] [place] [address] (Lena max) 03/03/2023 Virtual Visit Neurology Erlinda Barber MD 420 [facility] [address] [place] [address] (Lena max) documented as of this encounter Visit Diagnoses Not on filedocumented in this encounter Care Teams Admin Secretary Relationship Specialty Start Date End Date Mari Esparza MD PCP - General 10/05/10 10/10/11 AYLA HUTCHINSON [address] [facility] [place] [address] documented as of this encounter
--- OUTSIDE RECORDS SUMMARY | 2022-06-15 13:29 | XMS_ITS | Encounter Summary ---
:1945 Author Organization [place] Address [address] [place] [address] Care Team Providers Name Role Phone Mari Esparza MD Primary Care Provider Encounter Details Date Type Department Care Team Description 06/03/2008 Office Visit-[facility] Dermatology Unknown, Provider 5th Floor, Clinic [address] [place] [phone] Social History Tobacco Use Types Packs/Day [...] this encounter Progress Notes Unknown, Provider - 06/03/2008 9:15 AM CST Pilot Fuel Engineer: Arabella Figueroa Status: Final Encounter: 03 Jun 2008 Type: Dermatology Nurse Note Reason For Visit CHARLETTE BRUSH is a 63 year old female present today for follow up allergic contact dermatits and stasis dermatitis follow up. Do you have any other appointments of any type today within the [facility] system? (this includes clinic appt's, Imaging, labs, procedures etc.) No. Allergies Bactroban CREA Bactroban OINT Keflex CAPS Lanolin OINT Penicillins. Current Meds Triamterene-HCTZ 37.5-25 MG Capsule;TAKE 1 CAPSULE DAILY.; RPT Hydrocortisone 2.5 % Ointment;APPLY TO LEGS TWICE DAILY; Rx Desoximetasone 0.05 % Gel;APPLY THREE TIMES DAILY NEEDED.; Rx Atenolol 25 MG Tablet;TAKE 1 TABLET TWICE DAILY; RPT Zyrtec 5 MG TABS;TAKE 2 TABLET DAILY; RPT Coumadin 10 MG Tablet;TAKE 1 TABLET DAILY.; RPT Prozac 20 MG Capsule;TAKE 1 CAPSULE DAILY.; RPT Cozaar 100 MG Tablet;TAKE 1 TABLET DAILY.; RPT AAA-MED RECONCILE;per patient; RPT. Pain Assessment Current history of pain associated with this visit is denied. Smoking Assessment No secondhand cigarette smoke exposure. No tobacco use. Vital Signs Recorded by Arabella Figueroa on 03 Jun 2008 09:13 AM BP:153/77, HR: 75 b/min. Signature Electronically Signed By: Arabella Figueroa RN; 06/03/2008 9:14 AM NET SOFTWARE DEVELOPER. documented in this encounter Plan of Treatment Upcoming Encounters Date Type Specialty Care Team Description 11/15/2022 Virtual Visit Pharm D Haylie Cheung, [facility] 14[address] [facility] [place] [address] (Lena max) 11/15/2022 Virtual Visit [place] [address] [place] [address] [place] [address] (Lena max) 03/03/2023 Virtual Visit Neurology Erlinda Barber MD 420 [facility] 295 [place], [place] [address] (Lena max) documented as of this encounter Visit Diagnoses Not on filedocumented in this encounter Care Teams Foam Rubber Curer Relationship Specialty Start Date End Date Mari Esparza MD PCP - General 10/05/10 10/10/11 AYLA HUTCHINSON [address] [place] [address] [place] [id number] documented as of this encounter
--- OUTSIDE RECORDS SUMMARY | 2022-06-15 13:29 | XMS_ITS | Encounter Summary ---
:1945 Author Organization [facility] Address [address] [place] [address] Care Team Providers Name Role Phone Unavailable Primary Care Provider Unavailable Reason for Visit Reason Comments Anticoagulation Encounter Details Date Type Department Care Team Description 01/14/2008 Allied Health/Nurse [facility] Eag an Anticoagulation Visit 1440 [facility] [place] [address] [...] - Inhaled Oxygen Concentration - - Weight 171.4 kg (377 lb 12.8 oz) 01/14/2008 8:00 AM CDT Height - - Body Mass Index 59.62 10/08/2007 12:45 PM CDT documented in this encounter Progress Notes Qing Guy - 01/14/2008 8:25 AM CDT ANTICOAGULATION FOLLOW-UP CLINIC VISIT Patient Name: Charlette Brush Date: 01/14/2008 SUBJECTIVE: Bleeding Signs/Symptoms: None Thromboembolic Signs/Symptoms: None Medication Changes: No Dietary Changes: No Bacterial/Viral Infection: No Missed Coumadin Doses: None Other Concerns: No ASSESSMENT/PLAN: See: ANTICOAGULATION QIC flow sheet. EA ANTICOAGULATION CLINIC Qing Guy RN documented in this encounter Nursing Notes 01/14/2008 8:00 AM CDT >> QING GUY Mon Jan 14, 2008 8:32 AM Charlette Brush presents for INR. Estimated Body mass index is 59.62 kg/(m^2) as calculated from: Height of 5' 6.75 (1.695 m) as of 10/08/07 Weight of 377 lb 12.8 oz (171.369 kg) as of this encounter Qing Guy RN documented in this encounter Plan of Treatment Upcoming Encounters Date Type Specialty Care Team Description 11/15/2022 Virtual Visit Pharm Haylie Gonzalez, [facility] [address] [place] [address] (Lena max) 11/15/2022 Virtual Visit [place] [address] [place] [address] [place] [phone] (Lena max) 03/03/2023 Virtual Visit Neurology Erlinda Barber MD 420 [facility] 295 [place], [place] [address] (Lena max) documented as of this encounter Procedures Procedure Name Priority Date/Time Associated Diagnosis Comme nts HCL INR POCT Routine 01/14/2008 Encounter for Long-Term Resu lts for this (Current) Use of procedure a re in the Anticoagulants results secti on. 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
--- OUTSIDE RECORDS SUMMARY | 2022-06-15 13:29 | XMS_ITS | Encounter Summary ---
:1945 Author Organization [facility] Address [address] [place] [address] Care Team Providers Name Role Phone Unavailable Primary Care Provider Unavailable Encounter Details Date Type Department Care Team Description 01/17/2008 Results Only [facility] Isaias, Mari Sifuentes MD 1440 [facility] [place] [address] [address] [phone] [place] [address] (Wo rk) Social History Tobacco [...] [facility] [address] [facility] [place] [address] (Wo rk) 11/15/2022 Virtual Visit IM/Peds Yane Barraza MD [address] [facility] [address] [place], [place] [phone] (Wo rk) 03/03/2023 Virtual Visit Neurology Erlinda Barber MD 420 [facility] [address] [place] [address] (Wo rk) documented as of this encounter Procedures Procedure Name Priority Date/Time Associated Diagnosis Comme nts HC MAMMO SCREEN Routine 01/17/2008 11:11 AM Resul ts for this BILATATERAL, INCL CDT procedure are in CAD WHEN PERF the results section. documented in this encounter Results SCREENINGMAMMOGRAPHYDIGITAL (01/17/2008 11:11 AM CDT) Anatomical Region Laterality Modality Other Specimen (Source) Anatomical Collection Method Collection Time Re ceived Time Location / / Volume Laterality 01/17/2008 11:11 AM CDT Impressions 01/17/2008 2:27 PM CDT SCREENING MAMMOGRAPHY, BILATERAL, DIGITA L 01/17/08 BREAST SYMPTOMS: Routine. COMPARISON: 12-26-05, 11-25-03. PARENCHYMAL PATTERN: Fatty/scattered fib roglandular densities. COMMENTS: Scattered stable nodular opaci ties are present in each breast likely small intramammary lymph n odes. No suspicious findings are evident in either breast. IMPRESSION: BI-RADS 2, BENIGN. This exam was evaluated with the assista nce of computer aided detection (CAD). Mari Esparza MD SPECIAL IMAGING STUDIES documented in this encounter Visit Diagnoses Not on filedocumented in this encounter
--- OUTSIDE RECORDS SUMMARY | 2022-06-15 13:29 | XMS_ITS | Encounter Summary ---
:1945 Author Organization [facility] Address [address] [place] [address] Care Team Providers Name Role Phone Unavailable Primary Care Provider Unavailable Reason for Visit Reason Onset Date Comments Orders 07/21/2008 from [facility] Encounter Details Date Type Department Care Team Description 07/21/2008 Telephone [facility] clinton Esparza, Mari Sifuentes, Orders (from [facility]) [address] [facility] [place] [address] AYLA COOK [phone] [place] 6[address] [facility] [place] [address] (Wo rk) Social History Tobacco Use [...] this encounter Miscellaneous Notes Telephone Encounter - Martha Monk - 07/22/2008 10:26 AM CST Left message rx is ready. BLAZE Morrison CAPTURE CLERK Telephone Encounter - Mari Esparza - 07/22/2008 9:54 AM CST Switched to avapro. Please inform pt CAPTURE CLERK Telephone Encounter - Yanet Gardner - 07/21/2008 4:36 PM CST Order asking for lower cost medication alternative. Please advise. Yanet Gardner CMA CAPTURE CLERK documented in this encounter Plan of Treatment Upcoming Encounters Date Type Specialty Care Team Description 11/15/2022 Virtual Visit Pharm D Haylie Cheung, [facility] [address] [facility] [place] [address] (Wo rk) 11/15/2022 Virtual Visit [place] [address] [place] [address] [place] [phone] (Wo rk) 03/03/2023 Virtual Visit Neurology Erlinda Barber MD 420 [facility] 295 [place], [place] [phone] (Wo rk) documented as of this encounter Visit Diagnoses Diagnosis BENIGN HYPERTENSION - Primary Essential hypertension, benign documented in this encounter
--- OUTSIDE RECORDS SUMMARY | 2022-06-15 13:29 | XMS_ITS | Encounter Summary ---
:1945 Author Organization [facility] Address [address] [place] [address] Care Team Providers Name Role Phone Unavailable Primary Care Provider Unavailable Reason for Visit Reason Comments Hypertension Encounter Details Date Type Department Care Team Description 03/31/2008 Office Visit [facility] Mari Esparza, [place] Hypertension, Benign (Primary Dx); Yarelis PATEL Family History of Celiac Disease 14[address] [facility] [place] [address] [place] [phone] [facility] [place] [address] (Wo rk) [...] Sign Reading Time Taken Comments Blood Pressure 158/100 03/31/2008 8:30 AM CDT Pulse 64 03/31/2008 8:30 AM CDT Temperature - - Respiratory Rate - - Oxygen Saturation - - Inhaled Oxygen Concentration - - Weight 172.5 kg (380 lb 4.8 oz) 03/31/2008 8:30 AM CDT Height 168.3 cm (5' 6.25) 03/31/2008 8:30 AM CDT Body Mass Index 60.92 03/31/2008 8:30 AM CDT documented in this encounter Progress Notes Isaias Mari Kay - 03/31/2008 8:53 AM CDT S: Charlette Brush is a 63 year old female who is here for intial evaluation of sister dx with celiac sprue, had iron def as presenting problem, pt is asymmptomatic. Pt wishes to stay on cozaar despite insurance issues. Patient Active Problem List Diagnoses Code ??? [...] HYPERTENSION 07/30/2003 ??? PULM EMBOLISM/INFARCT NOS 11/20/2001 Current outpatient prescriptions Medication Sig ??? COZAAR 50 MG OR TABS 1 TABLET DAILY ??? TRIAMTERENE-HCTZ 37.5-25 MG OR CAPS 1 CAPSULE DAILY ??? ATENOLOL 25 MG OR TABS 1 tab po BID ??? FLUOXETINE HCL 20 MG OR TABS ONE DAILY IN THE MORNING ??? COUMADIN 10 MG OR TABS 1 tab qd or as directed ??? ZYRTEC 5 MG OR TABS 1 tab BID ??? COUMADIN 2.5 MG OR TABS as directed ??? ACETAMINOPHEN 500 MG OR TABS 1 tab qd ??? HYDROCORTISONE (TOPICAL) 2.5 % EX OINT apply as needed ??? TOPICORT 0.05 % EX GEL apply 3 times daily as needed below knees ??? ZYRTEC-D 5-120 MG OR TB12 ONE TABLET TWICE DAILY Patient is well known and past medical history, problem list, surgical and social histories were reviewed and updated today. O: BP 158/100 Pulse 64 Ht 5' 6.25 (1.683 m) Wt 380 lb 4.8 oz (172.503 kg) LMP Postmenopausal well appearing, no distress Exam deferred today. A/P: 401.1 Essential Hypertension, Benign (primary encounter diagnosis) Comment: Plan: COZAAR 100 MG OR TABS, A.M.A. BASIC METABOLIC PANEL Increase cozaar, recheck BPat upcoming INR visit V18.59T Family History of Celiac Disease Comment: Plan: TISSUE TRANGLU BRITNEY PROFILE, FERRITIN, HGB, IRON & TIBC Total time spent with patient face to face this visit 30 minutes. Greater than 50% on counseling fordiagnosis. documented in this encounter Nursing Notes 03/31/2008 8:30 AM CDT >> IMANI DICKINSON Mon Mar 31, 2008 8:34 AM Charlette Brush presents for blood pressure check also would like to discuss sister recently dx with ciliac disease.. Initial BP 158/100 Pulse 64 Ht 5' 6.25 (1.683 m) Wt 380 lb 4.8 oz (172.503 kg) LMP Postmenopausal Body mass index is 60.92 kg/(m^2).. BP completed using cuff size: large documented in this encounter Plan of Treatment Upcoming Encounters Date Type Specialty Care Team Description 11/15/2022 Virtual Visit Pharm Haylie Gonzalez, [facility] 1440 [facility] [place] [address] (Lena max) 11/15/2022 Virtual Visit IM/Yane Mathias MD [address] [facility] [place] [address] (Lena max) 03/03/2023 Virtual Visit Neurology Erlinda Barber MD 420 [facility] 295 [place] [address] (Wo rk) documented as of this encounter Procedures Procedure Name Priority Date/Time Associated Comments Diagnosis TISSUE TRANGLU BRITNEY Routine 03/31/2008 8:58 AM Family History o f Results for this PROFILE CDT Celiac Disease procedure are in the results section. IRON & TIBC Routine 03/31/2008 8:58 AM Family History of Resu lts for this CDT Celiac Disease procedure are in the results section. HCL HEMOGLOBIN Routine 03/31/2008 8:58 AM Family History of Re sults for this NONLAB CDT Celiac Disease procedure are in the results section. HCL BASIC METABOLIC Routine 03/31/2008 8:58 AM Essential Re sults for this PANEL CDT Hypertension, procedure are in Benign the results section. HCL FERRITIN Routine 03/31/2008 8:58 AM Family History of Resu lts for this CDT Celiac Disease procedure are in the results section. documented in this encounter Results (ABNORMAL) A.M.A. BASIC METABOLIC PANEL (03/31/2008 8:58 AM CDT) athologist Signature Sodium 142 133 - 144 [place] mmol/L [facility] Potassium 4.3 3.4 - 5.3 [place] mmol/L [facility] Chloride 105 94 - 109 [place] mmol/L [facility] Carbon Dioxide 29 20 - 32 [place] mmol/L [facility] Anion Gap 9 6 - 17 [place] mmol/L [facility] Glucose 102 (H) 60 - 99 [place] mg/dL [facility] Urea Nitrogen 16 7 - 30 [place] mg/dL [facility] Creatinine 0.70 0.52 - [place] 1.04 mg/dL [facility] Comment: New IDMS-traceable calibration beginning 11/15/07 GFR Estimate 85 >60 mL/min/1.7m2 [place] [facility] GFR Estimate If Black >90 >60 mL/min/1.7m2 [facility] Calcium 9.0 8.5 - 10.4 mg/dL [place] [facility] Specimen Anatomical Collection Method Collection Time Receive d Time (Source) Location / / Volume Laterality 03/31/2008 8:58 AM 8 9:01 CDT AM CDT Mari Esparza MD LABORATORY Performing Organization Address City/[facility]/ZIP Code Phon e Number [facility] [address] [place] [address] [phone] [facility] IRON & TIBC (03/31/2008 8:58 AM CDT) P athologist Signature Iron 90 35 - 180 [facility] ug/dL [facility] Iron Binding 340 240 - 430 [place] Cap ug/dL [facility] Iron Saturation 26 15 - 46 % [place] Index [facility] Specimen Anatomical Collection Method Collection Time Receive d Time (Source) Location / / Volume Laterality 03/31/2008 8:58 AM 8 9:01 CDT AM CDT Mari Esparza MD LABORATORY Performing Organization Address City/[facility]/ZIP Code Phon e Number [facility] [address] [place] [address] [facility] HGB (03/31/2008 8:58 AM CDT) P athologist Signature Hemoglobin 13.8 11.7 - 15.7 [place] [facility] g/dL [facility] Specimen Anatomical Collection Method Collection Time Receive d Time (Source) Location / / Volume Laterality 03/31/2008 8:58 AM 8 9:01 CDT AM CDT Mari Esparza MD LABORATORY Performing Organization Address City/[facility]/ZIP Code Phon e Number [facility] [address] [place] [phone] [facility] FERRITIN (03/31/2008 8:58 AM CDT) P athologist Signature Ferritin 91 10 - 300 [facility] ng/mL [place] [facility] Specimen Anatomical Collection Method Collection Time Receive d Time (Source) Location / / Volume Laterality 03/31/2008 8:58 AM 8 9:01 CDT AM CDT Mari Esparza MD LABORATORY Performing Organization Address City/State/ZIP Code Phon e Number [address] [address] [facility] TISSUE TRANGLU BRITNEY PROFILE (03/31/2008 8:58 AM CDT) [facility] gist Method Time Signature Tissue 1.2 U/mL [facility] Transglutaminase [place] Antibody [facility] Comment: Interpretation: Negative Tissue Transglutaminase Brit[place] <1.0 U/mL [facility] IgG Interpretation: ??Negative [facility] Specimen Anatomical Collection Method Collection Time Receive d Time (Source) Location / / Volume Laterality 03/31/2008 8:58 AM 8 9:01 CDT AM CDT Mari Esparza MD LABORATORY Performing Organization Address [facility]/ZIP Code Phon e Number [address] [address] [facility] documented in this encounter Visit Diagnoses Diagnosis Essential hypertension, benign - Primary Family history of celiac disease Family history of other digestive disord ers documented in this encounter
--- OUTSIDE RECORDS SUMMARY | 2022-06-15 13:29 | XMS_ITS | Encounter Summary ---
:1945 Author Organization [place] Address [address] [place] [address] Care Team Providers Name Role Phone Unavailable Primary Care Provider Unavailable Encounter Details Date Type Department Care Team Description 01/16/2008 [facility] Mari Esparza, NICOLÁS [place] MD [address] [facility] [place] [address] [place] [phone] [facility] [place] [address] Social History Tobacco Use Types Packs/Day Years [...] Visit Haylie [place], [facility] [address] [place] [address] (Wo rk) 11/15/2022 Virtual Visit IM/Peds Yane Barraza MD 3[address] [facility] [place] [address] (Wo rk) 03/03/2023 Virtual Visit Neurology Erlinda Barber MD 420 [facility] 295 [place] [address] (Wo rk) documented as of this encounter Visit Diagnoses Not on filedocumented in this encounter
--- OUTSIDE RECORDS SUMMARY | 2022-06-15 13:29 | XMS_ITS | Encounter Summary ---
:1945 Author Organization [place] Address [address] [place] [address] Care Team Providers Name Role Phone Unavailable Primary Care Provider Unavailable Reason for Visit Reason Comments Anticoagulation Encounter Details Date Type Department Care Team Description 06/30/2008 Allied Health/Nurse [facility] Eag an Anticoagulation Visit 1440 Glacial [...] Oxygen Concentration - - Weight 176.9 kg (389 lb 14.4 oz) 06/30/2008 8:00 AM REIMBURSEMENT ANALYST Height - - Body Mass Index 62.46 03/31/2008 8:30 AM CDT documented in this encounter Progress Notes Qing Guy - 06/30/2008 8:35 AM CST ANTICOAGULATION FOLLOW-UP CLINIC VISIT Patient Name: Charlette Bursh Date: 06/30/2008 SUBJECTIVE: Bleeding Signs/Symptoms: None Thromboembolic Signs/Symptoms: None Medication Changes: No Dietary Changes: No Bacterial/Viral Infection: No Missed Coumadin Doses: None Other Concerns: No ASSESSMENT/PLAN: See: ANTICOAGULATION QIC flow sheet. [facility] ANTICOAGULATION CLINIC Qing Guy RN BURSEMENT ANALYST documented in this encounter Nursing Notes 06/30/2008 8:00 AM CST >> QING GUY Mon Jun 30, 2008 8:36 AM Charlette Carreon Tristinnithin presents for INR. Estimated Body mass index is 62.46 kg/(m^2) as calculated from: Height of 5' 6.25 (1.683 m) as of 03/31/08 Weight of 389 lb 14.4 oz (176.857 kg) as of this encounter Qing Guy RN documented in this encounter Plan of Treatment Upcoming Encounters Date Type Specialty Care Team Description 11/15/2022 Virtual Visit Pharm Haylie Gonzalez, [facility] 1440 [facility] [place] [phone] (Lena max) 11/15/2022 Virtual Visit IM/Peds Yane Barraza MD 3305 [facility] [place] [phone] (Lena max) 03/03/2023 Virtual Visit Neurology Erlinda Barber MD 420 [facility] 295 [place] [address] (Lena max) documented as of this encounter Procedures Procedure Name Priority Date/Time Associated Diagnosis Comme nts HCL INR POCT Routine 06/30/2008 Encounter for Long-Term Resu lts for this (Current) Use of procedure a re in the Anticoagulants results secti on. documented in this encounter Results INR POINT OF CARE (06/30/2008) P athologist Signature INR Point of 4.0 [facility] Mari Esparza MD LABORATORY Performing Organization Address City/State/ZIP Code Phon e Number [facility] documented in this encounter Visit Diagnoses Diagnosis senior living (current) use of anticoagulant s Long-term (current) use of anticoagulant s documented in this encounter
--- OUTSIDE RECORDS SUMMARY | 2022-06-15 13:29 | XMS_ITS | Encounter Summary ---
:1945 Author Organization [facility] Address [address] [place] [address] Care Team Providers Name Role Phone Mari Esparza MD Primary Care Provider Encounter Details Date Type Department Care Team Description 06/03/2008 Office Visit-[facility] Dermatology Ashwini Miller 5th Floor, Clinic 5A MD Roland [address] [place] [address] [facility] [place] [address] Social History Tobacco Use Types [...] this encounter Progress Notes Ashwini Miller - 06/03/2008 9:15 AM CST Under Seal Operator: Ashwini Miller Status: Final - Signature Encounter: 03 Jun 2008 Type: Dermatology Visit Department of Dermatology [place] Mail Code 98 [address] [place] [address] Dermatology Clinic [facility] Fifth Floor, Clinic 5A [address] [place] [address] Appt RE: Charlette Brush : 1945 DIRK: 06/03/2008 OUTPATIENT VISIT NOTE SUBJECTIVE: The patient is a 63-year-old female here with a history of severe allergic contact dermatitis and stasis dermatitis. She has tested positive to Bactroban, Moisturel, Nutraderm, clotrimazole, budesonide, __(?), Bacitracin, as well as having mild reaction to Aveeno, hydrocortisone cream, Elidel cream, balsam of Tracy, and benzyl alcohol. She has also had some doubtful reaction to Vanicream Lite, Umbrel(?), L'Oreal, Wal-Sporin ointment, Suave shampoo, Bactroban ointment, paraben mix, and benzoyl peroxide. She currently is well controlled using Topicort gel and hydrocortisone 2.5% ointment to affected areas. She does state that she got quite itchy in her lower legs, where she has had stasisdermatitis in the past. She used her Topicort gel, and things have resolved quite nicely. She uses Vanicream, but not Vanicream Lite, after showers, and applies no other topical products to her skin. REVIEW OF SYSTEMS: She is otherwise feeling well. No fevers, chills, night sweats, nausea or vomiting. PHYSICAL EXAMINATION: In general, she is alert and oriented, in no acute distress, well appearing, appearing approximately her stated age, exhibiting Andre skin type I. Skin exam: A full-body skin examination, except the genitals, is performed today with no abnormalities except for as follows: There is some residual postinflammatory hyperpigmentation on the pre-tibial shins bilaterally, as wellas some excoriated papules in the same area. Otherwise, there are no active areas of dermatitis noted elsewhere. ASSESSMENT/PLAN: Severe contact dermatitis and stasis dermatitis. Currently, she is well controlled on Topicort gel and hydrocortisone 2.5% ointment. We will have her continue this regimen. We will have her return to see us in six months. Of note, she was counseled that if she does develop any infections in the area, she should call and we will give her oral antibiotics, as she has exhibited contact allergies to all of the topical antibiotics. We also discussed with her to call early with any problems that she is having with her stasis dermatitis and to treat early with the Topicort to try to avoidany secondary complications. Ashwini Miller M.D. Product Test Engineer Department of Dermatology Dictated by Sergo Carl MD Dermatology Resident KB:laureen I have personally examined the patient, reviewed and edited the resident's note and agree with the plan of care Electronically signed by:ASHWINI MILLER M.D. Jun 04 2008 10:37AM SCHOOL MANAGER OL MANAGER documented in this encounter Plan of Treatment Upcoming Encounters Date Type Specialty Care Team Description 11/15/2022 Virtual Visit Pharm D Haylie Cheung, [facility] 1440 [facility] [place] [phone] (Lena max) 11/15/2022 Virtual Visit [place] [address] [place] [address] [place] [phone] (Lena max) 03/03/2023 Virtual Visit Neurology Erlinda Barber MD 420 [facility] 295 [place], [place] [phone] (Lena max) documented as of this encounter Visit Diagnoses Not on filedocumented in this encounter Care Teams Commercial Intern Relationship Specialty Start Date End Date Mari Esparza MD PCP - General 10/05/10 10/10/11 AYLA HUTCHINSON [address] [place] [address] [place] [phone] documented as of this encounter
--- OUTSIDE RECORDS SUMMARY | 2022-06-15 13:29 | XMS_ITS | Encounter Summary ---
:1945 Author Organization [facility] Address [address] [place] [address] Care Team Providers Name Role Phone Mari Esparza MD Primary Care Provider Encounter Details Date Type Department Care Team Description 01/23/2008 Office Visit-[facility] Dermatology Provider, [facility] Nurse 5th Floor, Clinic [address] [place] [phone] Social History Tobacco Use Types Packs/Day [...] encounter Progress Notes Provider, [place] Nurse - 01/23/2008 9:15 AM CDT Spa Consultant: Amelia Guerin Status: Final Encounter: 23 Jan 2008 Type: Dermatology Nurse Note Reason For Visit MARZENA BRUSH is a 63 year old female present today with follow up allergic contact dermatitis and stasis dermatitis. Do you have any other appointments of any type today within the [facility] system? (this includes clinic appt's, Imaging, labs, procedures etc.) No. Allergies Bactroban CREA Bactroban OINT Keflex CAPS Lanolin OINT Penicillins. Current Meds The medications listed below were reviewed with patient by Bobby Guerin RN prior to provider visit on January 23, 2008 at 09:38. Cozaar 50 MG Tablet;TAKE 1 TABLET DAILY.; RPT Triamterene-HCTZ [...] 20 MG Capsule;TAKE 1 CAPSULE DAILY.; RPT AAA-MED RECONCILE;per patient; RPT. Pain Assessment Current history of pain associated with this visit is denied. Smoking Assessment No secondhand cigarette smoke exposure. No tobacco use. Vital Signs Recorded by Amelia Guerin on 23 Jan 2008 09:38 AM Height: 67 in, Weight: 375 lb, BMI: 58.7 kg/m2. 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 documented in this encounter Plan of Treatment Upcoming Encounters Date Type Specialty Care Team Description 11/15/2022 Virtual Visit Pharm D Haylie Cheung, [facility] 1440 [facility] [place] [phone] (Lena max) 11/15/2022 Virtual Visit IM/Peds Yane Barraza MD 9285 [facility] [place] [phone] (Lena max) 03/03/2023 Virtual Visit Neurology Erlinda Barber MD 420 [facility] 295 [place] [address] (Wo rk) documented as of this encounter Visit Diagnoses Not on filedocumented in this encounter Care Teams Cardiopulmonary Technician And Eeg Tech Relationship Specialty Start Date End Date Mari Esparza MD PCP - General 10/05/10 10/10/11 AYLA HUTCHINSON [address] [place] [address] [place] [phone] documented as of this encounter
--- OUTSIDE RECORDS SUMMARY | 2022-06-15 13:29 | XMS_ITS | Encounter Summary ---
:1945 Author Organization [facility] Address [address] [place] [address] Care Team Providers Name Role Phone Unavailable Primary Care Provider Unavailable Reason for Visit Reason Comments Anticoagulation Encounter Details Date Type Department Care Team Description 04/07/2008 Allied Health/Nurse [facility] Eag an Anticoagulation Visit 1440 Community [...] Reading Time Taken Comments Blood Pressure 126/78 04/07/2008 8:00 AM CDT Pulse 76 04/07/2008 8:00 AM CDT Temperature - - Respiratory Rate - - Oxygen Saturation - - Inhaled Oxygen Concentration - - Weight 175.2 kg (386 lb 4.8 oz) 04/07/2008 8:00 AM CDT Height - - Body Mass Index 61.88 03/31/2008 8:30 AM CDT documented in this encounter Progress Notes Qing Guy - 04/07/2008 8:35 AM CDT ANTICOAGULATION FOLLOW-UP CLINIC VISIT Patient Name: Charlette Brush Date: 04/07/2008 SUBJECTIVE: Bleeding Signs/Symptoms: None Thromboembolic Signs/Symptoms: None Medication Changes: Yes - Cozaar dose increased from 50mg to 100mg qd Dietary Changes: No Bacterial/Viral Infection: No Missed Coumadin Doses: None Other Concerns: No ASSESSMENT/PLAN: See: ANTICOAGULATION QIC flow sheet. EA ANTICOAGULATION CLINIC Qing Guy RN documented in this encounter Nursing Notes 04/07/2008 8:00 AM CDT >> QING GUY Mon Apr 07, 2008 8:36 AM Charlette Brush presents for INR. Estimated Body mass index is 61.88 kg/(m^2) as calculated from: Height of 5' 6.25 (1.683 m) as of 03/31/08 Weight of 386 lb 4.8 oz (175.225 kg) as of this encounter Qing Guy RN documented in this encounter Plan of Treatment Upcoming Encounters Date Type Specialty Care Team Description 11/15/2022 Virtual Visit Pharm D Haylie Cheung, [facility] 1440 [facility] [place] [phone] (Lena max) 11/15/2022 Virtual Visit IM/Peds Yane Barraza MD 3305 [facility] [place] [address] (Lena max) 03/03/2023 Virtual Visit Neurology Erlinda Barber MD 420 [facility] 295 [place], [place] [address] (Lena max) documented as of this encounter Procedures Procedure Name Priority Date/Time Associated Diagnosis Comme nts HCL INR POCT Routine 04/07/2008 Encounter for Long-Term Resu lts for this (Current) Use of procedure a re in the Anticoagulants results secti on. documented in this encounter Results INR POINT OF CARE (04/07/2008) P athologist Signature INR Point of 2.7 [facility] Care LAB Mari Esparza MD LABORATORY Performing Organization Address City/State/ZIP Code Phon e Number [facility] documented in this encounter Visit Diagnoses Diagnosis shelter (current) use of anticoagulant s - Primary Long-term (current) use of anticoagulant s documented in this encounter
--- OUTSIDE RECORDS SUMMARY | 2022-06-15 13:29 | XMS_ITS | Encounter Summary ---
:1945 Author Organization [facility] Address [address] [place] [address] Care Team Providers Name Role Phone Unavailable Primary Care Provider Unavailable Reason for Visit Reason Comments Anticoagulation Encounter Details Date Type Department Care Team Description 03/24/2008 Allied Health/Nurse [facility] Eag an Anticoagulation Visit 1440 [facility] [...] - Inhaled Oxygen Concentration - - Weight 174 kg (383 lb 9.6 oz) 03/24/2008 8:00 AM CDT Height - - Body Mass Index 60.53 10/08/2007 12:45 PM CDT documented in this encounter Progress Notes Qing Guy - 03/24/2008 8:15 AM CDT ANTICOAGULATION FOLLOW-UP CLINIC VISIT Patient Name: Charlette Brush Date: 03/24/2008 SUBJECTIVE: Bleeding Signs/Symptoms: None Thromboembolic Signs/Symptoms: None Medication Changes: No Dietary Changes: No Bacterial/Viral Infection: No Missed Coumadin Doses: None Other Concerns: No ASSESSMENT/PLAN: See: ANTICOAGULATION QIC flow sheet. EA ANTICOAGULATION CLINIC Qing Guy RN documented in this encounter Nursing Notes 03/24/2008 8:00 AM CDT >> QING GUY Mon Mar 24, 2008 8:43 AM Charlette Carreon Tristinnithin presents for INR. Estimated Body mass index is 60.53 kg/(m^2) as calculated from: Height of 5' 6.75 (1.695 m) as of 10/08/07 Weight of 383 lb 9.6 oz (174 kg) as of this encounter Qing Guy RN documented in this encounter Plan of Treatment Upcoming Encounters Date Type Specialty Care Team Description 11/15/2022 Virtual Visit Pharm Haylie Gonzalez, [facility] 1440 [facility] [place] [phone] (Lena max) 11/15/2022 Virtual Visit [place] [address] [place] [address] [place] [phone] (Lena max) 03/03/2023 Virtual Visit Neurology Erlinda Barber MD 420 [facility] 295 [place] [address] (Lena max) documented as of this encounter Procedures Procedure Name Priority Date/Time Associated Diagnosis Comme nts HCL INR POCT Routine 03/24/2008 Encounter for Long-Term Resu lts for this (Current) Use of procedure a re in the Anticoagulants results secti on. 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
--- OUTSIDE RECORDS SUMMARY | 2022-06-15 13:30 | XMS_ITS | Encounter Summary ---
:1945 Author Organization [place] Address [address] [place] [address] Care Team Providers Name Role Phone Unavailable Primary Care Provider Unavailable Encounter Details Date Type Department Care Team Description 01/06/2007 Orders Only [facility] Eag an LIPOID METABOL DIS NOS 14[address] [facility] [place] [phone] Social History Tobacco Use [...] Team Description 11/15/2022 Virtual Visit Haylie [place], [facility] [address] [place], [place] [phone] (Wo rk) 11/15/2022 Virtual Visit IM/Peds Yane Barraza MD 0665 [facility] K [facility] [place] [address] (Wo rk) 03/03/2023 Virtual Visit Neurology Erlinda Barber MD 420 [facility] 295 [place] [address] (Wo rk) documented as of this encounter Procedures Procedure Name Priority Date/Time Associated Diagnosis Comme nts CL AFF A.M.A. LIPID Routine 01/06/2007 9:44 AM Lipoid Metabol Dis Results for this PANEL CDT Nos procedure are i n the results section. documented in this encounter Results (ABNORMAL) A.M.A. LIPID PANEL (01/06/2007 9:44 AM CDT) athologist Signature Cholesterol 171 0 - 200 [facility] mg/dL CLINIC LAB Comment: LDL Cholesterol is the primary guide to therapy: LDL-cholesterol goal in high risk patients is <100 mg/dL and in very high risk patients is <70 mg/dL. The NCEP recommends further evaluation of: patients with cholesterol <200 mg/dL if additional risk factors are present, cholesterol >240 mg/dL, triglycerides >150 mg/dL, or HDL <40 mg/dL. Triglycerides 206 (H) 0 - 150 mg/dL [facility] LAB HDL Cholesterol 35 (L) 50 - 110 mg/dL [facility] LDL Cholesterol Calculated 95 0 - 129 mg/dL [facility] Comment: LDL Cholesterol is the primary guide to therapy: LDL-cholesterol goal in high risk patients is <100 mg/dL and in very high risk patients is <70 mg/dL. VLDL-Cholesterol 41 (H) 0 - 30 mg/dL [facility] Cholesterol/HDL Ratio 4.9 0.0 - 5.0 [facility] Specimen Anatomical Collection Method Collection Time Receive d Time (Source) Location / / Volume Laterality 01/06/2007 9:44 AM 7 9:49 CDT AM CDT Anant Terry MD LABORATORY Performing Organization Address City/State/ZIP Code Phon e Number [facility] 1440 [facility] [place] [address] [facility] documented in this encounter Visit Diagnoses Diagnosis Unspecified disorder of lipoid metabolis m documented in this encounter
--- OUTSIDE RECORDS SUMMARY | 2022-06-15 13:30 | XMS_ITS | Encounter Summary ---
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 EA ANTICOAGULATION CLINIC Qing Guy RN documented in this encounter Nursing Notes 10/04/2007 4:30 PM CDT >> QING GUY 10/04/2007 5:25 pm Charlette Brush presents for INR. Estimated Body mass index is 58.56 kg/(m^2) as calculated from: Height of 5' 7 (1.702 m) as of 08/15/07 Weight of 374 lbs (169.645 kg) as of this encounter Qing Guy RN documented in this encounter Plan of Treatment Upcoming Encounters Date Type Specialty Care Team Description 11/15/2022 Virtual Visit Pharm Haylie Gonzalez, [facility] [address] [facility] [address] [place] [phone] (Lena max) 11/15/2022 Virtual Visit IM/Peds Yane Barraza MD 3[address] [facility] [place] [phone] (Wo winter) 03/03/2023 Virtual Visit Neurology Erlinda Barber MD 420 [facility] 295 [place], [place] [address] (Lena max) documented as of this encounter Procedures Procedure Name Priority Date/Time Associated Diagnosis Comme nts HCL INR POCT Routine 10/04/2007 Aftercare Detention Results for this Anticoag Use procedure are i n the results section . documented in this encounter Results INR POINT OF CARE (10/04/2007) P athologist Signature INR Point of 3.2 [facility] Care LAB Mari Esparza MD LABORATORY Performing Organization Address City/State/ZIP Code Phon e Number [facility] documented in this encounter Visit Diagnoses Diagnosis [facility] (current) use of anticoagulant s - Primary Long-term (current) use of anticoagulant s documented in this encounter
--- OUTSIDE RECORDS SUMMARY | 2022-06-15 13:30 | XMS_ITS | Encounter Summary ---
:1945 Author Organization [place] Address [address] [place] [address] Care Team Providers Name Role Phone Unavailable Primary Care Provider Unavailable Reason for Referral - Closed Specialty Diagnoses / Procedures Referred By Contact Refer red To Contact Diagnoses Morbid obesity (H) Mari Esparza MD [facility] [place] [address] [place] [address] Referral ID Status Reason Start Date Expiration Date Visits Requ ested Visits Authorized [id number] Closed 10/03/2006 07/16/2011 1 1 - Closed Specialty Diagnoses / Procedures Referred By Contact Refer red To Contact Diagnoses Open wound of foot except toe(s) alone, without mention of complication Mari Esparza MD [facility] [place] [address] [place] [address] Referral ID Status Reason Start Date Expiration Date Visits Requ ested Visits Authorized [id number] Closed 10/03/2006 07/16/2011 1 1 Reason for Visit Reason Comments Physical Encounter Details Date Type Department Care Team Description 10/03/2006 Office Visit [facility] Mari Esparza ROUTI NE MEDICAL EXAM (Primary Dx); Yarelis PATEL DERMATITIS NOS; [facility] AYLA COOK BENIGN HYPERTENSION; [place] [address] JASPER OPEN WOUND OF FOOT; [phone] [address] MORBID OBESITY ([place]) [place] [address] (Wo rk) Social History Tobacco Use Types [...] Sign Reading Time Taken Comments Blood Pressure 132/86 10/03/2006 8:30 AM CDT Pulse 68 10/03/2006 8:30 AM CDT Temperature - - Respiratory Rate - - Oxygen Saturation - - Inhaled Oxygen Concentration - - Weight 177.4 kg (391 lb 1.6 oz) 10/03/2006 8:30 AM CDT Height 168.3 cm (5' 6.25) 10/03/2006 8:30 AM CDT Body Mass Index 62.65 10/03/2006 8:30 AM CDT documented in this encounter Progress Notes Mari Esparza - 10/03/2006 8:57 AM CDT SUBJECTIVE: CC:Charlette Brush, a 61 year old female, presents for routine health maintenance exam. LMP: No LMP date recorded. Reason: Postmenopausal. Contraception: none HPI: has a non healing wound on right heel for past 5 years due to her stasis dermatitis. Has seen derm and they did not have any further recs per pt. Otherwise feeling well Patient Active Problem List Diagnoses Code ??? BENIGN HYPERTENSION 401.1 ??? PULM EMBOLISM/INFARCT NOS 415.19 ??? EDEMA 782.3 ??? MORBID OBESITY 278.01 ??? OTHER LYMPHEDEMA 457.1 ? ? OBSTRUCTIVE SLEEP APNEA, ADULT & PED 327.23 ??? 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 iamJOINT PAIN-ANKLE 719.47 Past Medical and Surgical Histories are reviewed and updated as noted in the Histories database. There are NO CHANGES Current outpatient prescriptions Medication Sig ??? ZYRTEC 5 MG OR TABS 1 tab BID ??? COZAAR 50 MG OR TABS 1 TABLET DAILY ??? TRIAMTERENE-HCTZ 37.5-25 MG OR CAPS 1 CAPSULE DAILY ??? ATENOLOL 25 MG OR TABS 1 tab po BID ??? COUMADIN 2.5 MG OR TABS as directed ??? COUMADIN 10 MG OR TABS 1 tab qd ??? ACETAMINOPHEN 500 MG OR TABS 1 tab qd ??? HYDROCORTISONE (TOPICAL) 2.5 % EX OINT apply as needed ??? TOPICORT 0.05 % EX GEL apply 3 times daily as needed below knees ??? ZYRTEC-D 5-120 MG OR TB12 1 tab in am ??? VICODIN 5-500 MG OR TABS 1-2 TABLET EVERY 4 TO 6 HOURS NEEDED Allergies Allergen Reactions ??? Penicillins hives ??? Cephalexin Keflex - hives ??? Lanolin skin irritation ??? Neomycin skin irritation Family History Problem Relation ??? C.A.D. Paternal Grandmother ??? Diabetes No family hx of ??? Hypertension Mother ??? Hypertension Sister ??? Stroke Maternal Grandmother age 62 ??? Breast CA Paternal Aunt x3 ??? Prostatic CA Father ??? Thyroid Mother ??? GI Brother irritable bowel History Social History ??? Marital Status: Single Spouse Name: N/A Number of Children: 1 ??? Years of Education: 17 Occupational History ??? [employer] Social History Main Topics ??? Tobacco Use: Never ??? Alcohol Use: No ??? Drug Use: No ??? Sexually Active: No Other Topics Concern ??? Not on file Social History Narrative ??? No narrative on file REVIEW OF SYSTEMS: CONSTITUTIONAL:NEGATIVE for fever, chills, has had increase in weight INTEGUMENTARY/SKIN: NEGATIVE for worrisome rashes, moles or lesions other than her LE EYES: NEGATIVE for vision changes or irritation ENT/MOUTH: NEGATIVE for ear, mouth and throat problems RESP:NEGATIVE for significant cough or SOB CV: NEGATIVE for chest pain, palpitations or peripheral edema GI: NEGATIVE for nausea, abdominal pain, heartburn, or change in bowel habits :NEGATIVE for dysuria, hematuria, abnormal menses, incontinence MUSCULOSKELETAL:NEGATIVE for significant arthralgias or myalgia NEURO: NEGATIVE for weakness, dizziness or paresthesias ENDOCRINE: NEGATIVE for temperature intolerance, skin/hair changes HEME/ALLERGY/IMMUNE: NEGATIVE for bleeding problems PSYCHIATRIC: NEGATIVE for changes in mood or affect EXAM: BP 132/86 Pulse 68 Ht 5' 6.25 (1.68m) Wt 391 lbs 1.6 oz (177.4kg) LMP Postmenopausal BMI = Body mass index is 62.63 kg/(m^2). GENERAL APPEARANCE:healthy,alert,no distress ORGAN EXAMS: EYES: PERRL, EOMI, conjunctiva and sclera normal HENT: nose,mouth without ulcers or lesions, TM's pearly kenny, normal light reflex bilateral, oral mucous membranes moist and oropharynx clear NECK: no adenopathy, no asymmetry, masses, or scars and thyroid normal to palpation RESP: CTA bilaterally CV: RRR no MRG CHEST (BREAST): normal without suspicious masses, skin changes or axillary nodes, self exam is taught and encouraged LYMPH: NEGATIVE GI: aorta normal, bowel sounds normal, liver span normal to percussion, no bruits heard and no massespalpable : deeferred MS:Good peripheral pulses, Extremities normal. SKIN: stasis dermatitis on right heel, mild open wound, no erythema or drainage. NEURO: Gait normal. Reflexes normal and symmetric. Sensation grossly WNL. PSYCH: NEGATIVE ASSESSMENT/PLAN: 61 year old health maintenance exam Cardiac Risks: HTN and Age > 45 (male) or >55 (female) Patient's Goal LDL = <130 Patient is screened for GC and Chlamydia: No V70.0 ROUTINE MEDICAL EXAM (primary encounter diagnosis) Note: Plan: MAMMOGRAM, SCREENING Due in December.9 DERMATITIS NOS Note: Plan: ZYRTEC 5 MG OR TABS Trial of a higher dose ointment, refer to wound center to see if they can help 401.1 BENIGN HYPERTENSION Note: ok control, could be a bit better, will follow for now Plan: COZAAR 50 MG OR TABS, TRIAMTERENE-HCTZ 37.5-25 MG OR CAPS, ATENOLOL 25 MG OR TABS, A.M.A. LIPID PANEL, A.M.A. COMPREHENSIVE MET.PANEL, TSH W/FREE T4 REFLEX Morbid obesity: Pt not currently interested in surgery, would be tricky with coumadin and PMhx of blood clots. Will refer to medical weight loss clinic at the . [place] trial of prozac for binge eating spells and follow up in 1 month to recheck weight. Discussed with pt breast self exam, mammography screening and adequate intake of calcium and vitaminD Recommended begin progressive daily aerobic exercise program, eat a low-fat, low-carb, high-fiber, high-protein diet, attempt to lose weight, continue current medications and return for routine annual chekcups I have discussed with patient the risks and benefits of medications, treatment options and modalities. I have instructed the patient to call or schedule a follow-up appointment if any problems occur or failure fo symptoms to improve. Jennifer Alicia - 10/03/2006 8:41 AM CDT HEALTH CARE MAINTENANCE: Ever had an abnormal pap? Yes - date: early 1989 Menses are every na days; lasting for na days. Flow is na. Menstrual Pain? na PMS symptoms? na Have you had a pneumonia shot? Yes - date: 05/13/05 How many dairy products do you eat daily? 3 Have you had an eye exam in the past year? NO Health Maintenance Reviewed: Health Maintenance Topic Date Due ??? Colonoscopy q10 yr. 02/12/2014 ??? Ldl q 5 yrs 09/05/2010 ??? Mammogram q 2 years 01/03/2008 ??? Pap q 2 years 09/07/2007 ??? Tetanus q10 yr 08/27/2014 SAFETY: ======= Do you exercise? NO If yes, how many times per week? Do you feel safe in your relationship(s)? Not in a relationship Do you have a gun in your home? No Do you wear your seatbelt regularly? YES Do you use sunscreen? YES Are you fasting today? Yes documented in this encounter Nursing Notes 10/03/2006 8:30 AM CDT >> JENNIFER ALICIA 10/03/2006 8:41 am Charlette Brush presents for physical. Initial BP 132/86 Pulse 68 Ht 5' 6.25 (1.68m) Wt 391 lbs 1.6 oz (177.4kg) LMP Postmenopausal Body mass index is 62.63 kg/(m^2).. BP completed using cuff size: X-large documented in this encounter Plan of Treatment Upcoming Encounters Date Type Specialty Care Team Description 11/15/2022 Virtual Visit Pharm Haylie Gonzalez, [facility] [address] [place] [address] (Wo winter) 11/15/2022 Virtual Visit IM/Peds Yane Barraza MD [address] [facility] [place] [address] (Wo winter) 03/03/2023 Virtual Visit Neurology Erlinda Barber MD [address] [facility] [address] [place] [address] (Wo rk) documented as of this encounter Procedures Procedure Name Priority Date/Time Associated Diagnosis Comme nts HCL COMPREHENSIVE Routine 10/03/2006 9:13 Benign Hypertension Results for this METABOLIC PANEL AM CDT procedure ar e in the results section. HCL TSH W/FREE T4 Routine 10/03/2006 9:13 Benign Hypertension Results for this REFLEX AM CDT procedure are i n the results section. CL AFF A.M.A. LIPID Routine 10/03/2006 9:13 Benign Hypertensio n Results for this PANEL AM CDT procedure are i n the results section. documented in this encounter Results TSH W/FREE T4 REFLEX (10/03/2006 9:13 AM CDT) athologist Signature TSH 1.34 0.4 - 5.0 [facility] [facility] mU/L [facility] LAB Specimen Anatomical Collection Method Collection Time Receive d Time (Source) Location / / Volume Laterality 10/03/2006 9:13 AM 7 9:15 CDT AM CDT Mari Esparza MD LABORATORY Performing Organization Address City/State/ZIP Code Phon e Number [facility] [address] [place] [address] [facility] LAB (ABNORMAL) A.M.A. COMPREHENSIVE MET.PANEL (10/03/2006 9:13 AM CDT) athologist Signature Sodium 138 133 - 144 [place] mmol/L [facility] Potassium 3.9 3.4 - 5.3 [place] mmol/L CLINIC LAB Chloride 106 94 - 109 [place] mmol/L [facility] LAB Carbon Dioxide 27 20 - 32 [place] mmol/L [facility] Anion Gap 5 (L) 6 - 17 [place] mmol/L [facility] Glucose 108 60 - 110 [place] mg/dL CLINIC LAB Urea Nitrogen 17 7 - 30 [place] mg/dL [facility]INIC LAB Creatinine 0.60 0.60 - [place] 1.30 mg/dL CLINIC LAB GFR Estimate >90 >60 [place] mL/min/1.7 [facility] m2 GFR Estimate If >90 >60 [place] Black mL/min/1.7 CLINIC LAB m2 Calcium 9.0 8.5 - 10.4 [place] mg/dL [facility] LAB Bilirubin Total 0.5 0.2 - 1.3 [place] mg/dL [facility] LAB Albumin 3.8 3.2 - 4.5 [place] g/dL [facility] LAB Protein Total 7.3 6.0 - 8.2 [place] g/dL [facility] LAB Alkaline 115 40 - 150 [place] Phosphatase U/L CLINIC LAB ALT 27 0 - 50 [facility] AST 24 0 - 45 U/L [facility] Specimen Anatomical Collection Method Collection Time Receive d Time (Source) Location / / Volume Laterality 10/03/2006 9:13 AM 7 9:15 CDT AM CDT Mari Esparza MD LABORATORY Performing Organization Address City/[facility]/ZIP Code Phon e Number [facility] [address] [facility] [place] [address] [phone] [facility] LAB (ABNORMAL) A.M.A. LIPID PANEL (10/03/2006 9:13 AM CDT) athologist Signature Cholesterol 202 (H) 0 - 200 [facility] mg/dL CLINIC LAB Comment: LDL Cholesterol is the primary guide to therapy: LDL-cholesterol goal in high risk patients is <100 mg/dL and in very high risk patients is <70 mg/dL. The NCEP recommends further evaluation of: patients with cholesterol <200 mg/dL if additional risk factors are present, cholesterol >240 mg/dL, triglycerides >150 mg/dL, or HDL <40 mg/dL. Triglycerides 245 (H) 0 - 150 mg/dL [facility] HDL Cholesterol 35 (L) 50 - 110 mg/dL [facility] LDL Cholesterol Calculated 117 0 - 129 mg/dL [facility] Comment: LDL Cholesterol is the primary guide to therapy: LDL-cholesterol goal in high risk patients is <100 mg/dL and in very high risk patients is <70 mg/dL. VLDL-Cholesterol 49 (H) 0 - 30 mg/dL [facility] LAB Cholesterol/HDL Ratio 5.7 (H) 0.0 - 5.0 [facility] Specimen Anatomical Collection Method Collection Time Receive d Time (Source) Location / / Volume Laterality 10/03/2006 9:13 AM 7 9:15 CDT AM CDT Mari Esparza MD LABORATORY Performing Organization Address City/[facility]/ZIP Code Phon e Number [facility] [address] [facility] [place] [address] [phone] [facility] documented in this encounter Visit Diagnoses Diagnosis Routine general medical examination at a health care facility - Primary Contact dermatitis and other eczema, due to unspecified cause Essential hypertension, benign Open wound of foot except toe(s) alone, without mention of complication Morbid obesity (H) Morbid obesity documented in this encounter
--- OUTSIDE RECORDS SUMMARY | 2022-06-15 13:30 | XMS_ITS | Encounter Summary ---
:1945 Author Organization [place] Address [address] [place] [address] Care Team Providers Name Role Phone Mari Esparza MD Primary Care Provider Encounter Details Date Type Department Care Team Description 07/23/2007 Office Visit-[facility] Dermatology Ashwini Miller 5th Floor, Clinic 5A MD Roland Thomas[address] [place] [address] [place] [address] [facility] [place] [address] Social History Tobacco Use Types [...] this encounter Progress Notes Ashwini Miller - 07/23/2007 8:45 AM CST Material Combiner: Ashwini Miller Status: Final - Signature Encounter: 23 Jul 2007 Type: Dermatology Visit Department of Dermatology [place] Mail Code [address] [place] [address] Dermatology Clinic [facility] Fifth Floor, Clinic 5A [address] [place] [address] Appt RE: Charlette Brush : 1945 DIRK: 07/23/2007 OUTPATIENT VISIT NOTE SUBJECTIVE: This is a 62-year-old female who presents in follow up for allergic contact dermatitis and stasis dermatitis. She underwent patch testing with Dr. Schroeder in 2001. She also has had ongoing stasis dermatitis and also continued in Lymphedema Clinic. She was last seen in May 2007 and hasdeveloped weeping ulcerations behind both knees and legs. She has been treating this with Topicort gel twice daily and reports great deal of improvement. Additionally, we wanted to use Bactroban for possible infection and the patient did Bactroban use test on the arms which reactive positively and wasno longer able to use Bactroban given its allergic contact dermatitis. The patient reports that her c ondition has improved. She is satisfied with her current treatment although she does want to start using compression stockings when she can. OBJECTIVE: This is a well-appearing patient in no apparent distress. On the legs bilaterally, pitting edema with areas of pink and brown macules in a Schamberg distribution. Behind the ankle and behindthe knee are skin with re- epithelization some faintly erythematous papules. The skin on her face, arms, back and chest are clear. ASSESSMENT/PLAN: Contact dermatitis with stasis dermatitis overlap. Recommended to continue topical twice daily and patient can decrease the hydrocortisone 2.5% ointment if she continues to improve. She may also restart compression stockings. If there is more improvement and patient can see a good __(?) of assessing her skin. If at a later time the patient does develop an infection of the skin, either bacterial or fungal, she will require oral systemic treatment as she is allergic to topical medications. We will have the patient follow up in four months. Ashwini Miller M.D. [employer] [employer] Department of Dermatology Dictated by Tanisha Gandara MD, Resident Dermatology KB:[email or web address] I have personally examined the patient, reviewed and edited the resident's note and agree with the plan of care Electronically signed by:ASHWINI MILLER M.D. Aug 08 2007 8:30AM EMAIL MARKETING ASSISTANT L MARKETING ASSISTANT documented in this encounter Plan of Treatment Upcoming Encounters Date Type Specialty Care Team Description 11/15/2022 Virtual Visit Pharm Haylie Gonzalez, [facility] [address] [facility] [place] [address] (Wo rk) 11/15/2022 Virtual Visit IM/Peds Yane Barraza MD [address] [facility] [address] [place] [phone] (Wo rk) 03/03/2023 Virtual Visit Neurology Erlinda Barber MD [address] [facility] [address] [place], [place] [phone] (Wo rk) documented as of this encounter Visit Diagnoses Not on filedocumented in this encounter Care Teams Hitcher Relationship Specialty Start Date End Date Mari Esaprza MD PCP - General 10/05/10 10/10/11 AYLA HUTCHINSON [address] [place] [address] [place] [phone] documented as of this encounter
--- OUTSIDE RECORDS SUMMARY | 2022-06-15 13:30 | XMS_ITS | Encounter Summary ---
:1945 Author Organization [place] Address [address] [place] [address] Care Team Providers Name Role Phone Unavailable Primary Care Provider Unavailable Reason for Visit Reason Comments Ear Problem Encounter Details Date Type Department Care Team Description 08/15/2007 Office Visit [facility] Lisandro Gamboa MD [address] [facility] [place] [phone] IMPACTED CERUMEN (Primary Dx); Brie Geller MD [address] [facility] [place] [phone] HEARING LOSS NOS; [address] ALLERGIC RHINITIS NOS [place] [address] Social History Tobacco Use [...] Sign Reading Time Taken Comments Blood Pressure 130/90 08/15/2007 3:45 PM RELIEF PHARMACIST Pulse 72 08/15/2007 3:45 PM RELIEF PHARMACIST Temperature - - Respiratory Rate - - Oxygen Saturation - - Inhaled Oxygen Concentration - - Weight 166.5 kg (367 lb) 08/15/2007 3:45 PM RELIEF PHARMACIST Height 170.2 cm (5' 7) 08/15/2007 3:45 PM RELIEF PHARMACIST Body Mass Index 57.48 08/15/2007 3:45 PM RELIEF PHARMACIST documented in this encounter Progress Notes Lisandro Gamboa - 08/16/2007 4:45 PM CST I have reviewed the documentation from Dr. Taylor, met with and examined the patient independently. I discussed the findings with the patient, and agree with the documentation of Dr. Taylor. Exam following cerumen removal shows mild erythema of right canal. TM's are clear, sl erythema on right. No effusions. 380.4 IMPACTED CERUMEN (primary encounter diagnosis) Plan: REMOVE IMPACTED EAR WAX Discussed either buying debrox OTC or make water:hydrogen peroxide 1:1 drops and use water from shower to clear ear canals. RTC if sig sx re-occur. 389.9 HEARING LOSS NOS Note: d/t cerumen Plan: REMOVE IMPACTED EAR WAX Sig improved 477.9 ALLERGIC RHINITIS NOS Note: chronic Plan: ZYRTEC-D 5-120 MG OR TB12 refilled EF PHARMACIST Brie Taylor - 08/15/2007 3:51 PM CST CC: hearing problem HPI: Charlette Brush is a 62 year old year old female presenting with hearing difficulty started 5 days ago. Noticed turning TV volume up. Prior to this episode, feels that hearing is slowly getting worse with time. Denies dizziness. Chronic tinnitus in both ears - seems worse over past few days. Feelsears are plugged. No recent URI symptoms. No fevers/chills. No history of trauma. Hx perforated ear drum as a child, no previous ear surgeries. Patient Active Problem List Diagnoses Code ??? [...] 1970 ? ? Tonsillectomy & adenoidectomy Current outpatient prescriptions Medication Sig ??? ZYRTEC-D 5-120 MG OR TB12 ONE TABLET TWICE DAILY ??? COUMADIN 10 MG OR TABS 1 tab qd or as directed ??? ZYRTEC 5 MG OR TABS 1 tab BID ??? COZAAR 50 MG OR TABS 1 TABLET DAILY ??? TRIAMTERENE-HCTZ 37.5-25 MG OR CAPS 1 CAPSULE DAILY ??? ATENOLOL 25 MG OR TABS 1 tab po BID ??? FLUOXETINE HCL 20 MG OR TABS ONE DAILY IN THE MORNING ??? COUMADIN 2.5 MG OR TABS as directed ??? ACETAMINOPHEN 500 MG OR TABS 1 tab qd ??? HYDROCORTISONE (TOPICAL) 2.5 % EX OINT apply as needed ??? TOPICORT 0.05 % EX GEL apply 3 times daily as needed below knees Allergies Allergen Reactions ??? Penicillins hives ??? Cephalexin Keflex - hives ??? Lanolin skin irritation ??? Neomycin skin irritation ??? Bactroban (mupirocin Calcium) Rash History Substance Use Topics ??? Tobacco Use: Never ??? Alcohol Use: No BP 130/90 Pulse 72 Ht 5' 7 (1.70m) Wt 367 lbs (166.5kg) LMP Postmenopausal Exam: Gen: obese female, no acute distress HEENT: perrl, eomi, mmm, no oral lesions, TM's occluded by cerumen bilaterally, hard of hearing Pulm: CTAB, no w/r/r CV: RRR, S1 and S2, no murmur Colace drops placed in ear. Ear wash performed producing large amts wax from both ears. Pt toleratedwell without dizziness or ear pain. Hearing improved after ear wash. Repeat examination of Tm's significant for erythema in EACs bilaterally, small amt of residual wax. ASSESSMENT: 389.9 HEARING LOSS NOS (primary encounter diagnosis) Note: secondary to cerumen impaction Plan: ear wash performed with improvement in hearing, discussed OTC treatments for wax, discouraged qtip use 477.9 ALLERGIC RHINITIS NOS Plan: ZYRTEC-D 5-120 MG OR TB12 Patient was seen and discussed with Dr. Gamboa. Brie Taylor MD EF PHARMACIST documented in this encounter Nursing Notes 08/15/2007 3:45 PM CST >> [address] 08/15/2007 3:48 pm Charlette Velma Brush presents for plugged ears that she has had for a few days. Initial BP 130/90 Pulse 72 Ht 5' 7 (1.70m) Wt 367 lbs (166.5kg) LMP Postmenopausal Body mass index is 57.47 kg/(m^2).. BP completed using cuff size: x-large DEXA Q3 YR due on 01/05/1976 PAP Q 2 YEARS due on 09/07/2007 COLONOSCOPY Q10 YR. due on 02/12/2014 LDL Q 5 YRS due on 01/07/2012 MAMMO Q2 YR NO INBASKET MESSAGE due on 01/03/2008 TETANUS Q10 YR due on 08/27/2014 BLAZE Vel[place] documented in this encounter Plan of Treatment Upcoming Encounters Date Type Specialty Care Team Description 11/15/2022 Virtual Visit Pharm D Halyie Cheung, [facility] [address] [facility] [place] [address] (Lena max) 11/15/2022 Virtual Visit IM/Peds Yane Barraza MD [address] [facility] [place] [address] (Lena max) 03/03/2023 Virtual Visit Neurology Erlinda Barber MD [address] [address] (Wo rk) documented as of this encounter Procedures Procedure Name Priority Date/Time Associated Diagnosis Comme nts HC REMOVE IMPACTED Routine 08/15/2007 4:31 PM RELIEF PHARMACIST Hearin g Loss Nos CERUMEN Impacted Cerumen documented in this encounter Visit Diagnoses Diagnosis Impacted cerumen - Primary Unspecified hearing loss Allergic rhinitis, cause unspecified documented in this encounter
--- OUTSIDE RECORDS SUMMARY | 2022-06-15 13:30 | XMS_ITS | Encounter Summary ---
:1945 Author Organization [place] Address [address] [place] [address] Care Team Providers Name Role Phone Unavailable Primary Care Provider Unavailable Reason for Visit Reason Comments Anticoagulation Encounter Details Date Type Department Care Team Description 05/17/2007 [facility] Eag an Anticoagulation Visit [address] [...] - Inhaled Oxygen Concentration - - Weight 163 kg (359 lb 4.8 oz) 05/17/2007 4:00 PM CDT Height - - Body Mass Index 57.56 10/03/2006 8:30 AM CDT documented in this encounter Progress Notes Ayanna Reyes - 05/17/2007 4:31 PM CDT ANTICOAGULATION FOLLOW-UP CLINIC VISIT Patient Name: Charlette Brush Date: 05/17/2007 SUBJECTIVE: Bleeding Signs/Symptoms: None Thromboembolic Signs/Symptoms: None Medication Changes: No Dietary Changes: No Bacterial/Viral Infection: No Missed Coumadin Doses: None Other Concerns: No ASSESSMENT/PLAN: See: ANTICOAGULATION QIC flow sheet. [facility] Prasanth Reyes RN documented in this encounter Nursing Notes 05/17/2007 4:00 PM CDT >> AYANNA REYES 05/17/2007 4:34 pm Charlette Brush presents for INR Estimated Body mass index is 57.54 kg/(m^2) as calculated from: Height of 5' 6.25 (1.683 m) as of 10/03/06 Weight of 359 lbs 4.8 oz (162.977 kg) as of this encounter Prasanth Reyes RN FLU VACCINE PROCEDURE DOCUMENTATION Injectable Influenza Immunization Documentation Form 1. Has the patient received the information for the influenza vaccine? YES 2. Does the patient have any of the following contraindications? Allergy to eggs? No Allergic reaction to previous influenza vaccines? No Paralyzed by Guillain-[place] syndrome? No Currently have moderate or severe illness? No Allergy to contact lens solution/thimerosol? No 3. The vaccine has been administered and the patient was instructed to wait 15 minutes before leaving the building in the event of an allergic reaction: YES Vaccination given by Prasanth Reyes RN documented in this encounter Plan of Treatment Upcoming Encounters Date Type Specialty Care Team Description 11/15/2022 Virtual Visit Pharm Haylie Gonzalez, [facility] [address] [facility] [place] [address] (Lena max) 11/15/2022 Virtual Visit IM/Yane Mathias MD [address] [facility] [place] [address] (Lena max) 03/03/2023 Virtual Visit Neurology Erlinda Barber MD [address] [facility] 295 [place] [address] (Wo rk) documented as of this encounter Procedures Procedure Name Priority Date/Time Associated Diagnosis Comme nts HCL INR POCT Routine 05/17/2007 Aftercare Frame Stripper And Crusher Results for this Anticoag Use procedure are i n the results section . 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
--- OUTSIDE RECORDS SUMMARY | 2022-06-15 13:30 | XMS_ITS | Encounter Summary ---
:1945 Author Organization [place] Address [address] [place] [address] Care Team Providers Name Role Phone Unavailable Primary Care Provider Unavailable Reason for Visit Reason Comments Anticoagulation Encounter Details Date Type Department Care Team Description 02/22/2007 Allied Health/[facility] [place] [facility] Eag an Anticoagulation Visit [address] [place] [...] - - Weight 166 kg (366 lb) 02/22/2007 4:00 PM CDT Height - - Body Mass Index 58.63 10/03/2006 8:30 AM CDT documented in this encounter Progress Notes Qing Guy - 02/22/2007 4:12 PM CDT ANTICOAGULATION FOLLOW-UP CLINIC VISIT Patient Name: Charlette Brush Date: 02/22/2007 SUBJECTIVE: Bleeding Signs/Symptoms: None Thromboembolic Signs/Symptoms: None Medication Changes: No Dietary Changes: No Bacterial/Viral Infection: No Missed Coumadin Doses: None Other Concerns: No ASSESSMENT/PLAN: See: ANTICOAGULATION QIC flow sheet. [facility] ANT[facility]ATION [facility]INIC Qing Guy RN documented in this encounter Nursing Notes 02/22/2007 4:00 PM CDT >> QING GUY 02/22/2007 4:47 pm Charlette Brush presents for INR. Estimated Body mass index is 58.61 kg/(m^2) as calculated from: Height of 5' 6.25 (1.683 m) as of 10/03/06 Weight of 366 lbs (166.017 kg) as of this encounter Qing Guy RN documented in this encounter Plan of Treatment Upcoming Encounters Date Type Specialty Care Team Description 11/15/2022 Virtual Visit Pharm Haylie Gonzalez, [facility] [address] [facility] [address] [place] [phone] (Lena max) 11/15/2022 Virtual Visit IM/Peds Yane Barraza MD [address] [facility] [place] [phone] (Wo winter) 03/03/2023 Virtual Visit Neurology Erlinda Barber MD 420 [facility] 295 [place], [place] [phone] (Lena max) documented as of this encounter Procedures Procedure Name Priority Date/Time Associated Diagnosis Comme nts HCL INR POCT Routine 02/22/2007 Aftercare Wood Stock Blank Handler Results for this Anticoag Use procedure are i n the results section . 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
--- OUTSIDE RECORDS SUMMARY | 2022-06-15 13:30 | XMS_ITS | Encounter Summary ---
:1945 Author Organization [place] Address [address] [place] [address] Care Team Providers Name Role Phone Mari Esparza MD Primary Care Provider Encounter Details Date Type Department Care Team Description 08/07/2007 Office Visit-[facility] Dermatology Provider, [facility] Nurse 5th Floor, Clinic [address] [place] [address] [phone] Social History Tobacco Use Types Packs/Day [...] encounter Progress Notes Provider, [place] Nurse - 08/07/2007 4:06 PM CST Middleware Developer: Amelia Guerin Status: Signed Encounter: 07 Aug 2007 Type: Dermatology Chart Note Date: 07 Aug 2007 4:00 PM MACHINE ROOM OPERATOR, Recorded By: Amelia Guerin Calling For: DAILY STEINER Caller: AVANIMARYMARZENA Lipscomb, [place] (Home), Reason: Other Marzena called stating Dr. Montero prescribes Zyrtec for her and that she received a letter from her pharmacy stating Zyrtec is now OTC and may not be covered by her insurance. She wants to know if the OTC Zyrtec is the same as the prescription Zyrtec. She can be reached at her home or work phone number or a message may be left at either number. Electronically signed by:Amelia Guerin R.N. Aug 07 2007 4:07PM MACHINE ROOM OPERATOR documented in this encounter Plan of Treatment Upcoming Encounters Date Type Specialty Care Team Description 11/15/2022 Virtual Visit Pharm D Haylie Cheung, [facility] [address] [facility] [address] [place] [phone] (Wo rk) 11/15/2022 Virtual Visit IM/Peds Yane Barraza MD [address] [facility] [address] [place] [phone] (Wo rk) 03/03/2023 Virtual Visit Neurology Erlnida Barber MD 420 [facility] [address] [place], [place] [phone] (Wo rk) documented as of this encounter Visit Diagnoses Not on filedocumented in this encounter Care Teams Post Commander Relationship Specialty Start Date End Date Mari Esparza MD PCP - General 10/05/10 10/10/11 AYLA HUTCHINSON [address] [place] [address] [place] [phone] documented as of this encounter
--- OUTSIDE RECORDS SUMMARY | 2022-06-15 13:30 | XMS_ITS | Encounter Summary ---
:1945 Author Organization [place] Address [address] [place] [address] Care Team Providers Name Role Phone Unavailable Primary Care Provider Unavailable Reason for Visit Reason Comments Anticoagulation Encounter Details Date Type Department Care Team Description 01/11/2007 Allied Health/[facility] Eag an Anticoagulation Visit 14[address] [facility] [place] [phone] Social History [...] - Inhaled Oxygen Concentration - - Weight 167.7 kg (369 lb 11.2 oz) 01/11/2007 4:00 PM CDT Height - - Body Mass Index 59.22 10/03/2006 8:30 AM CDT documented in this encounter Progress Notes Qing Guy - 01/11/2007 4:22 PM CDT ANTICOAGULATION FOLLOW-UP CLINIC VISIT Patient Name: Charlette Brush Date: 01/11/2007 SUBJECTIVE: Bleeding Signs/Symptoms: None Thromboembolic Signs/Symptoms: None Medication Changes: No Dietary Changes: No Bacterial/Viral Infection: No Missed Coumadin Doses: None Other Concerns: No ASSESSMENT/PLAN: See: ANTICOAGULATION QIC flow sheet. [facility] Qing Guy RN documented in this encounter Nursing Notes 01/11/2007 4:00 PM CDT >> QING GUY 01/11/2007 4:00 pm Charlette Brush presents for INR. Estimated Body mass index is 59.20 kg/(m^2) as calculated from: Height of 5' 6.25 (1.683 m) as of 10/03/06 Weight of 369 lbs 11.2 oz (167.695 kg) as of this encounter Qing Guy RN documented in this encounter Plan of Treatment Upcoming Encounters Date Type Specialty Care Team Description 11/15/2022 Virtual Visit Pharm Haylie Gonzalez, [facility] [address] [facility] [place] [address] (Lena max) 11/15/2022 Virtual Visit [place] [address] [place] [address] [place] [phone] (Lena max) 03/03/2023 Virtual Visit Neurology Erlinda Barber MD 420 [facility] 295 [place], [place] [phone] (Lena max) documented as of this encounter Procedures Procedure Name Priority Date/Time Associated Diagnosis Comme nts HCL INR POCT Routine 01/11/2007 Aftercare Alf Results for this Anticoag Use procedure are i n the results section . documented in this encounter Results INR POINT OF CARE (01/11/2007) P athologist Signature INR Point of 2.6 [facility] Mari Esparza MD LABORATORY Performing Organization Address City/State/ZIP Code Phon e Number [facility] documented in this encounter Visit Diagnoses Diagnosis jail (current) use of anticoagulant s - Primary Long-term (current) use of anticoagulant s documented in this encounter
--- OUTSIDE RECORDS SUMMARY | 2022-06-15 13:30 | XMS_ITS | Encounter Summary ---
:1945 Author Organization [place] Address [address] [place] [address] Care Team Providers Name Role Phone Unavailable Primary Care Provider Unavailable Reason for Visit Reason Comments Anticoagulation Encounter Details Date Type Department Care Team Description 06/26/2007 Allied Health/[facility] [place] [facility] Eag an Anticoagulation Visit 14[address] [facility] [...] - Inhaled Oxygen Concentration - - Weight 163.5 kg (360 lb 8 oz) 06/26/2007 3:15 PM DINING ROOM CAPTAIN Height - - Body Mass Index 57.75 10/03/2006 8:30 AM CDT documented in this encounter Progress Notes Ayanna Reyes - 06/26/2007 3:39 PM CST ANTICOAGULATION FOLLOW-UP CLINIC VISIT Patient Name: Charlette Brush Date: 06/26/2007 SUBJECTIVE: Bleeding Signs/Symptoms: None Thromboembolic Signs/Symptoms: None Medication Changes: No Dietary Changes: No Bacterial/Viral Infection: No Missed Coumadin Doses: None Other Concerns: No ASSESSMENT/PLAN: See: ANTICOAGULATION QIC flow sheet. [facility] ANTICOAG[facility]AT[facility] CLINIC Prasanth Ryees RN NG ROOM CAPTAIN documented in this encounter Nursing Notes 06/26/2007 3:15 PM CST >> AYANNA REYES 06/26/2007 3:40 pm Charlette Carreon Trudi presents for INR Estimated Body mass index is 57.73 kg/(m^2) as calculated from: Height of 5' 6.25 (1.683 m) as of 10/03/06 Weight of 360 lbs 8.0 oz (163.522 kg) as of this encounter Prasanth Reyes RN documented in this encounter Plan of Treatment Upcoming Encounters Date Type Specialty Care Team Description 11/15/2022 Virtual Visit Pharm Haylie Gonzalez, [facility] [address] [facility] [address] [place] [phone] (Lena max) 11/15/2022 Virtual Visit IM/Peds Yane Barraza MD [address] [facility] [facility] [address] [place] [phone] (Lena max) 03/03/2023 Virtual Visit Neurology Erlinda Barber MD 420 [facility] 295 [place], [place] [phone] (Lena max) documented as of this encounter Procedures Procedure Name Priority Date/Time Associated Diagnosis Comme nts HCL INR POCT Routine 06/26/2007 Aftercare It Risk And Assurance Manager Results for this Anticoag Use procedure are i n the results section . 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
--- OUTSIDE RECORDS SUMMARY | 2022-06-15 13:30 | XMS_ITS | Encounter Summary ---
:1945 Author Organization [place] Address [address] [place] [address] Care Team Providers Name Role Phone Unavailable Primary Care Provider Unavailable Reason for Visit Reason Comments RECHECK Encounter Details Date Type Department Care Team Description 01/11/2007 Office Visit [facility] Anant Terry MD [address] [place] [address] MORBID OBESITY (H) (Primary Dx); Isai Grant MD SCREENING FOR OSTEOPOROSIS; [address] [facility] LIPOID METABOL DIS NOS [place] [address] Social History Tobacco [...] Reading Time Taken Comments Blood Pressure 122/84 01/11/2007 3:45 PM CDT Pulse 64 01/11/2007 3:45 PM CDT Temperature - - Respiratory Rate - - Oxygen Saturation - - Inhaled Oxygen Concentration - - Weight 167.7 kg (369 lb 11.2 oz) 01/11/2007 3:45 PM CDT Height - - Body Mass Index 59.22 10/03/2006 8:30 AM CDT documented in this encounter Progress Notes Anant Terry - 01/11/2007 4:42 PM CDT SUBJECTIVE: Charlette Brush, a 62 year old female, presents for followup of obesity and hyperlipidemia. She has been successful with losing weight through weight watchers -- down 22+ pounds in the last 3 months. She is noting less desire for sweets. She is continuing to experience pain on the right heel which has been dhronic and associated with recurrent friction ulcer. OBJECTIVE: BP 122/84 Pulse 64 Wt 369 lbs 11.2 oz (167.7kg) LMP Postmenopausal SKIN: there is a very small, shallow erosion over the right achilles LAB: Lab Test 01/06/07 10/03/06 CHOL 171 202* HDL 35* 35* LDL 95 117 TRIG 206* 245* CHOLHDLRATIO 4.9 5.7* ASSESSMENT/PLAN: 278.01 MORBID OBESITY (primary encounter diagnosis) Note: Good progress. Praised patient for her achievements and encouraged sustained effort to continue with weight reduction. V82.81 SCREENING FOR OSTEOPOROSIS Plan: DEXA,BONE DENSITY,AXIAL SKELETON 272.9 LIPOID METABOL DIS NOS Note: Has dropped below goal for LDL so no further need to consider statin. Continue with weight reduction approach. Plan: f/u 6 months. Anant Terry MD documented in this encounter Nursing Notes 01/11/2007 3:45 PM CDT >> NELY DOWNS 01/11/2007 4:03 pm Charlette Brush presents for follow up. Initial BP 122/84 Pulse 64 Wt 369 lbs 11.2 oz (167.7kg) LMP Postmenopausal Estimated Body massindex is 59.20 kg/(m^2) as calculated from: Height of 5' 6.25 (1.683 m) as of 10/03/06 Weight of 369 lbs 11.2 oz (167.695 kg) as of this encounter. BP completed using cuff size: kati Noble MA documented in this encounter Plan of Treatment Upcoming Encounters Date Type Specialty Care Team Description 11/15/2022 Virtual Visit Pharm Haylie Gonzalez, [facility] [address] [facility] [place] [address] (Wo winter) 11/15/2022 Virtual Visit IM/Peds Yane Barraza MD [address] [facility] [place] [address] (Wo rk) 03/03/2023 Virtual Visit Neurology Erlinda Barber MD 420 [facility] 295 [place] [address] (Wo winter) documented as of this encounter Visit Diagnoses Diagnosis Morbid obesity (H) - Primary Morbid obesity Special screening for osteoporosis Unspecified disorder of lipoid metabolis m documented in this encounter
--- OUTSIDE RECORDS SUMMARY | 2022-06-15 13:30 | XMS_ITS | Encounter Summary ---
:1945 Author Organization [place] Address [address] [place] [address] Care Team Providers Name Role Phone Unavailable Primary Care Provider Unavailable Reason for Visit Reason Onset Date Comments Refill Request 09/20/2007 Warfarin Encounter Details Date Type Department Care Team Description 09/20/2007 Refill [facility] Mari Beard MD Refill Request 1440 [facility] JOYCE HUTCHINSON (Warfarin) [place] [phone] [address] [phone] [place] [address] (Wo rk) Social History Tobacco [...] Notes Telephone Encounter - Khadar Austineen - 09/20/2007 4:23 PM CST Med refilled per standing order for 12 months. Pt had INR appt today and comes in Q 6 weeks. Prasanth Austin RN CH FACTORY LABORER documented in this encounter Plan of Treatment Upcoming Encounters Date Type Specialty Care Team Description 11/15/2022 Virtual Visit Pharm D Haylie Cheung, 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
--- OUTSIDE RECORDS SUMMARY | 2022-06-15 13:30 | XMS_ITS | Encounter Summary ---
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 Bacterial/Viral Infection: No Missed Coumadin Doses: None Other Concerns: No ASSESSMENT/PLAN: See: ANTICOAGULATION QIC flow sheet. [facility] Prasanth Reyes RN L FLOORING INSTALLER documented in this encounter Nursing Notes 09/20/2007 4:00 PM CST >> AYANNA REYES 09/20/2007 4:13 pm Charlette Carreon Trudi presents for INR Estimated Body mass index is 58.86 kg/(m^2) as calculated from: Height of 5' 7 (1.702 m) as of 08/15/07 Weight of 375 lbs 14.4 oz (170.507 kg) as of this encounter Prasanth Reyes RN documented in this encounter Plan of Treatment Upcoming Encounters Date Type Specialty Care Team Description 11/15/2022 Virtual Visit Pharm Haylie Gonzalez, [facility] [address] [facility] [address] [place] [phone] (Lena max) 11/15/2022 Virtual Visit IM/Peds Yane Barraza MD [address] [facility] [address] [place] [phone] (Lena max) 03/03/2023 Virtual Visit Neurology Erlinda Barber MD 420 [facility] 295 [place], [place] [phone] (Lena max) documented as of this encounter Procedures Procedure Name Priority Date/Time Associated Diagnosis Comme nts HCL INR POCT Routine 09/20/2007 Aftercare [facility] Results for this Anticoag Use procedure are i n the results section . documented in this encounter Results INR POINT OF CARE (09/20/2007) P athologist Signature INR Point of 3.6 [facility]IS[facility]ILL[facility] Care LAB Mari Esparza MD LABORATORY Performing Organization Address City/State/ZIP Code Phon e Number [facility]IS[facility] LAB documented in this encounter Visit Diagnoses Diagnosis halfway (current) use of anticoagulant s - Primary Long-term (current) use of anticoagulant s documented in this encounter
--- OUTSIDE RECORDS SUMMARY | 2022-06-15 13:30 | XMS_ITS | Encounter Summary ---
:1945 Author Organization [place] Address [address] [place] [address] Care Team Providers Name Role Phone Unavailable Primary Care Provider Unavailable Reason for Visit Reason Comments Anticoagulation Encounter Details Date Type Department Care Team Description 04/05/2007 Allied Health/[facility]urse [facility] Eag an Anticoagulation Visit 14[address] [facility] [place] [phone] Social History Tobacco [...] - Inhaled Oxygen Concentration - - Weight 163.6 kg (360 lb 11.2 oz) 04/05/2007 4:00 PM CDT Height - - Body Mass Index 57.78 10/03/2006 8:30 AM CDT documented in this encounter Progress Notes Qing Guy - 04/05/2007 4:14 PM CDT ANTICOAGULATION FOLLOW-UP CLINIC VISIT Patient Name: Charlette Brush Date: 04/05/2007 SUBJECTIVE: Bleeding Signs/Symptoms: None Thromboembolic Signs/Symptoms: None Medication Changes: No Dietary Changes: No Bacterial/Viral Infection: No Missed Coumadin Doses: None Other Concerns: No ASSESSMENT/PLAN: See: ANTICOAGULATION QIC flow sheet. [facility] Qing Guy RN documented in this encounter Nursing Notes 04/05/2007 4:00 PM CDT >> QING GUY 04/05/2007 4:19 pm Charlette Brush presents for INR. Estimated Body mass index is 57.76 kg/(m^2) as calculated from: Height of 5' 6.25 (1.683 m) as of 10/03/06 Weight of 360 lbs 11.2 oz (163.612 kg) as of this encounter Qing Guy RN documented in this encounter Plan of Treatment Upcoming Encounters Date Type Specialty Care Team Description 11/15/2022 Virtual Visit Pharm Haylie Gonzalez, [facility] [address] [facility] [address] (Lena max) 11/15/2022 Virtual Visit [place] [address] [place] [address] [place] [phone] (Lena amx) 03/03/2023 Virtual Visit Neurology Erlinda Barber MD 420 [facility] 295 [place], [place] [phone] (Lena max) documented as of this encounter Procedures Procedure Name Priority Date/Time Associated Diagnosis Comme nts HCL INR POCT Routine 04/05/2007 Aftercare Batter Depositor Results for this Anticoag Use procedure are i n the results section . 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
--- OUTSIDE RECORDS SUMMARY | 2022-06-15 13:30 | XMS_ITS | Encounter Summary ---
:1945 Author Organization [facility] Address [address] [place] [address] Care Team Providers Name Role Phone Unavailable Primary Care Provider Unavailable Reason for Visit Reason Comments Anticoagulation Encounter Details Date Type Department Care Team Description 08/09/2007 Allied Health/[facility]urse [facility] Eag an Anticoagulation Visit [address] [...] - Inhaled Oxygen Concentration - - Weight 169.2 kg (373 lb 1.6 oz) 08/09/2007 4:00 PM SUPERVISOR MATRIX Height - - Body Mass Index 59.77 10/03/2006 8:30 AM CDT documented in this encounter Progress Notes Qing Guy - 08/09/2007 4:06 PM CST ANTICOAGULATION FOLLOW-UP CLINIC VISIT Patient Name: Charlette Brush Date: 08/09/2007 SUBJECTIVE: Bleeding Signs/Symptoms: None Thromboembolic Signs/Symptoms: None Medication Changes: No Dietary Changes: No Bacterial/Viral Infection: No Missed Coumadin Doses: None Other Concerns: No ASSESSMENT/PLAN: See: ANTICOAGULATION QIC flow sheet. [facility] ANTICOAGULATION CLINIC RVISOR MATRIX documented in this encounter Nursing Notes 08/09/2007 4:00 PM CST >> QING GUY 08/09/2007 4:21 pm Charlette Brush presents for INR. Estimated Body mass index is 59.75 kg/(m^2) as calculated from: Height of 5' 6.25 (1.683 m) as of 10/03/06 Weight of 373 lbs 1.6 oz (169.237 kg) as of this encounter Qing Guy RN documented in this encounter Plan of Treatment Upcoming Encounters Date Type Specialty Care Team Description 11/15/2022 Virtual Visit Pharm Haylie Gonzalez, [facility] [address] [facility] [address] [place] [phone] (Lena max) 11/15/2022 Virtual Visit IM/Peds Yane Barraza MD [address] [facility] [place] [phone] (Wo winter) 03/03/2023 Virtual Visit Neurology Erlinda Barber MD 420 [facility] 295 [place], [place] [address] (Lena max) documented as of this encounter Procedures Procedure Name Priority Date/Time Associated Diagnosis Comme nts HCL INR POCT Routine 08/09/2007 Aftercare Residential Substance Abuse Counselor Results for this Anticoag Use procedure are i n the results section . 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
--- OUTSIDE RECORDS SUMMARY | 2022-06-15 13:30 | XMS_ITS | Encounter Summary ---
:1945 Author Organization [facility] Address [address] [place] [address] Care Team Providers Name Role Phone Unavailable Primary Care Provider Unavailable Reason for Visit Reason Comments RECHECK Encounter Details Date Type Department Care Team Description 11/02/2006 Office Visit [facility] Anant Terry MD [address] [facility] [place] [address] MORBID OBESITY (H) (Primary Dx); Isai Grant MD LIPOID METABOL DIS NOS; [address] [place]; [place] [phone] iamJOINT PAIN-ANKLE [phone] Social History Tobacco Use Types Packs/Day Years [...] Reading Time Taken Comments Blood Pressure 120/84 11/02/2006 3:45 PM CDT Pulse 68 11/02/2006 3:45 PM CDT Temperature - - Respiratory Rate - - Oxygen Saturation - - Inhaled Oxygen Concentration - - Weight 173.6 kg (382 lb 11.2 oz) 11/02/2006 3:45 PM CDT Height - - Body Mass Index 61.3 10/03/2006 8:30 AM CDT documented in this encounter Progress Notes Anant Terry - 11/24/2006 3:41 PM CDT I have seen and examined the patient with Dr. Hendrix and agree with his findings as documented above. The yancey subjective findings are obesity and desire to lose weight. The yancey objective findings are Estimated Body mass index is 61.29 kg/(m^2) as calculated from: Height of 5' 6.25 (1.683 m) as of 10/03/06 Weight of 382 lbs 11.2 oz (173.592 kg) as of this encounter . I agree with the diagnosis of 278.01 MORBID OBESITY (primary encounter diagnosis) 272.9 LIPOID METABOL DIS NOS 782.3 EDEMA 719.47 iamJOINT PAIN-ANKLE and the plans for encouraging plans to work with Weight [employer]chers and continued monitoring. Anant Terry MD Isai Hendrix - 11/02/2006 5:08 PM CDT SUBJECTIVE: Charlette Brush is a 61 year old female who presents for follow-up of several medical problems. MORBID OBESITY About 20-25 lb weight gain in past year, peaked at 390 lbs at full physical exam 1 month ago. Started on trial Prozac at that time for binge eating. Reports some improvement in binge eating spells overthe weeks - also being more proactive to not buy food that is easy to binge on. Only side effect concern is evening fatigue - feeling more tired 8:30-9:30 at night, unusual for her. Sleeping through night well, waking up on-time or 15-30 minutes early. Ultimately reports higher quality sleep. Has goodenergy during the day. No real change in mood. Weight itself has dropped 8 lbs from 4 weeks ago. No exercise yet due to healing ulcer on R heel. LIPOID METABOL DIS NOS Lipid panel checked at last visit - similar LDL, but showed dyslipidemia with shift in HDL from 52 to 35 and increase in VLDL from 34 to 49 with concurrent rise in triglycerides. No statin therapy yet. JOINT PAIN-ANKLE Stasis skin changes in R ankle and open ulcer. Using cortisone ointment, two socks, orthotic in shoe. Reports good improvement, wound is the most closed it has been in months. Hopes to walk more as pain from that wound decreases. EDEMA Hoping to use compression stockings once wound heals - irritated that wound in the past. OBJECTIVE: BP 120/84 Pulse 68 Wt 382 lbs 11.2 oz (173.6kg) LMP Postmenopausal Weight down 8 lbs in 4 weeks since last visit Gen: Alert, oriented, pleasant, no apparent distress Ext: 2-3+ pitting edema in B LE, with clear sock line margination noted. Skin: Stasis dermatitis changes noted R heel. The wound itself has improved nicely with no real openareas to be seen at the center of the wound anymore. ASSESSMENT/PLAN: 61 yo F for follow-up multiple problems 278.01 MORBID OBESITY (primary encounter diagnosis) Note: Showing improvement with diet, Weight Watchers, Prozac. Applauded steady 2 lb/week weight loss. Encouraged continued management. Discussed nighttime fatigue symptom of Prozac, patient feels encourage to keep going, hope symptom may decrease with time on med and eventual exercise. Plan: Continue current management Continue Prozac x 2-3 more months Could consider Bupropion as other therapy if has setback Not interested in surgery at this time 272.9 LIPOID METABOL DIS NOS Note: Has dyslipidemia with LDL at goal, but shift noted away from HDL to more VLDL and triglycerides. Will monitor for now. HTN is in good control. Shift in lipids concurrent with 20-25 lb weight gain, hoping they may shift back as patient continues to lose weight. Plan: A.M.A. LIPID PANEL Check lipids in 2-3 months time Will discuss those results at next clinic visit - consider statin therapy if not showing improvementwith additional weight loss 782.3 EDEMA Note: B legs Plan: Start compression stockings again as wound heals Give referral to [facility] to create stockings if she finds her old ones no longer fit 719.47 iamJOINT PAIN-ANKLE Note: Heel wound - definitely improved from 1 month ago with current wound cares Plan: Continue current management Encouraged exercise as pain decreases. Total time spent this visit was over 25 minutes, over 50% of which was spent in counseling for morbid obesity, weight loss, depressive symptoms, wound care for heel/ankle, dyslipidemia. This patient was seen and discussed with Dr. Terry. Isai Hendrix MD documented in this encounter Nursing Notes 11/02/2006 3:45 PM CDT >> NELY DOWNS 11/02/2006 3:49 pm Charlette Brush presents for medication follow up, was put on prozac. Also goes to weight watches. Has had increased tiredness since starting med Will need refill Initial BP 120/84 Pulse 68 Wt 382 lbs 11.2 oz (173.6kg) LMP Postmenopausal Estimated Body massindex is 61.29 kg/(m^2) as calculated from: Height of 5' 6.25 (1.683 m) as of 10/03/06 Weight of 382 lbs 11.2 oz (173.592 kg) as of this encounter. BP completed using cuff size: kati Noble MA documented in this encounter Plan of Treatment Upcoming Encounters Date Type Specialty Care Team Description 11/15/2022 Virtual Visit Pharm D Haylie Cheung, [facility] 14[address] [facility] [place] [address] (Lena max) 11/15/2022 Virtual Visit [place] [address] [place] [address] [place] [address] (Lena max) 03/03/2023 Virtual Visit Neurology Erlinda Barber MD 420 [facility] 295 [place] [address] (Lena max) documented as of this encounter Visit Diagnoses Diagnosis Morbid obesity (H) - Primary Morbid obesity Unspecified disorder of lipoid metabolis m Edema iamJOINT PAIN-ANKLE Pain in joint, ankle and foot documented in this encounter
--- OUTSIDE RECORDS SUMMARY | 2022-06-15 13:30 | XMS_ITS | Encounter Summary ---
:1945 Author Organization [facility] Address [address] [place] [address] Care Team Providers Name Role Phone Unavailable Primary Care Provider Unavailable Reason for Visit Reason Comments Anticoagulation Encounter Details Date Type Department Care Team Description 11/02/2006 Allied Health/[facility] Eag an Anticoagulation Visit [address] [...] 173.6 kg (382 lb 11.2 oz) 11/02/2006 4:00 PM CDT Height - - Body Mass Index 61.3 10/03/2006 8:30 AM CDT documented in this encounter Progress Notes Qing Guy - 11/02/2006 4:37 PM CDT ANTICOAGULATION FOLLOW-UP CLINIC VISIT Patient Name: Charlette Brush Date: 11/02/2006 SUBJECTIVE: Bleeding Signs/Symptoms: None Thromboembolic Signs/Symptoms: None Medication Changes: Started on Prozac 20mg qd Dietary Changes: Has lost about 10 lbs Bacterial/Viral Infection: No Missed Coumadin Doses: None Other Concerns: No ASSESSMENT/PLAN: See: ANTICOAGULATION QIC flow sheet. EA ANTICOAGULATION CLINIC documented in this encounter Nursing Notes 11/02/2006 4:00 PM CDT >> QING GUY 11/02/2006 4:50 pm Charlette Stilessevennithin presents for INR. Estimated Body mass index is 61.29 kg/(m^2) as calculated from: Height of 5' 6.25 (1.683 m) as of 10/03/06 Weight of 382 lbs 11.2 oz (173.592 kg) as of this encounter Qing Guy RN documented in this encounter Plan of Treatment Upcoming Encounters Date Type Specialty Care Team Description 11/15/2022 Virtual Visit Pharm Haylie Gonzalez, [facility] [address] [facility] [place] [address] (Lena max) 11/15/2022 Virtual Visit [place] [address] [place] [address] [place] [phone] (Lena max) 03/03/2023 Virtual Visit Neurology Erlinda Barber MD 420 [facility] 295 [place], [place] [phone] (Lena max) documented as of this encounter Procedures Procedure Name Priority Date/Time Associated Diagnosis Comme nts HCL INR POCT Routine 11/02/2006 [facility] Results for this Anticoag Use procedure are i n the results section . 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
--- OUTSIDE RECORDS SUMMARY | 2022-06-15 13:30 | XMS_ITS | Encounter Summary ---
:1945 Author Organization [facility] Address [address] [place] [address] Care Team Providers Name Role Phone Unavailable Primary Care Provider Unavailable Reason for Visit Reason Comments Anticoagulation Encounter Details Date Type Department Care Team Description 12/14/2006 Allied Health/[facility]urse [facility] Eag an Anticoagulation Visit 1440 [facility] [place] [...] Oxygen Concentration - - Weight 169.6 kg (373 lb 14.4 oz) 12/14/2006 4:00 PM CDT Height - - Body Mass Index 59.89 10/03/2006 8:30 AM CDT documented in this encounter Progress Notes Qing Guy - 12/14/2006 4:10 PM CDT ANTICOAGULATION FOLLOW-UP CLINIC VISIT Patient Name: Charlette Brush Date: 12/14/2006 SUBJECTIVE: Bleeding Signs/Symptoms: None Thromboembolic Signs/Symptoms: None Medication Changes: Has been taking increased amt of Tylenol for hip pain Dietary Changes: No Bacterial/Viral Infection: No Missed Coumadin Doses: None Other Concerns: No ASSESSMENT/PLAN: See: ANTICOAGULATION QIC flow sheet. EA ANTICOAGULATION CLINIC Qing Guy RN documented in this encounter Nursing Notes 12/14/2006 4:00 PM CDT >> QING GUY 12/14/2006 4:45 pm Charlette Brush presents for INR. Estimated Body mass index is 59.88 kg/(m^2) as calculated from: Height of 5' 6.25 (1.683 m) as of 10/03/06 Weight of 373 lbs 14.4 oz (169.600 kg) as of this encounter Qing Guy RN documented in this encounter Plan of Treatment Upcoming Encounters Date Type Specialty Care Team Description 11/15/2022 Virtual Visit Pharm Haylie Gonzalez, [facility] [address] [facility] [place] [address] (Lena max) 11/15/2022 Virtual [place] [address] [place] [address] [place] [phone] (Lena max) 03/03/2023 Virtual Visit Neurology Erlinda Barber MD 420 [facility] 295 [place], [place] [address] (Lena max) documented as of this encounter Procedures Procedure Name Priority Date/Time Associated Diagnosis Comme nts HCL INR POCT Routine 12/14/2006 [facility] Results for this Anticoag Use procedure are i n the results section . documented in this encounter Results INR POINT OF CARE (12/14/2006) P athologist Signature INR Point of 2.0 [facility] Care [facility] Mari Esparza MD LABORATORY Performing Organization Address City/State/ZIP Code Phon e Number [facility] documented in this encounter Visit Diagnoses Diagnosis long-term (current) use of anticoagulant s - Primary Long-term (current) use of anticoagulant s documented in this encounter
--- OUTSIDE RECORDS SUMMARY | 2022-06-15 13:30 | XMS_ITS | Encounter Summary ---
:1945 Author Organization [facility] Address [address] [place] [address] Care Team Providers Name Role Phone Mari Esparza MD Primary Care Provider Encounter Details Date Type Department Care Team Description 07/23/2007 Office Visit-[facility] Dermatology Provider, [facility] Nurse 5th Floor, Clinic [address] [place] [address] [phone] Social History Tobacco Use Types Packs/Day [...] encounter Progress Notes Provider, La Nurse - 07/23/2007 8:45 AM CST Finish Machine Tender: Renettamariselanighat Erna Status: Final Encounter: 23 Jul 2007 Type: Dermatology Nurse Note Reason For Visit States here for followup of allergic contact dermatitis. Allergies Bactroban CREA Bactroban OINT Keflex CAPS Lanolin OINT Penicillins. Current Meds The medications listed below were reviewed and updated with patient by Asad Jain Rn prior to provider visit on July 23, 2007 at 09:08. Cozaar 50 MG Tablet;TAKE 1 TABLET DAILY.; RPT Triamterene-HCTZ 37.5-25 MG Capsule;TAKE 1 CAPSULE DAILY.; RPT Hydrocortisone 2.5 % Ointment;APPLY TO LEGS TWICE DAILY; Rx Desoximetasone 0.05 % GEL;APPLY THREE TIMES DAILY NEEDED.; Rx Atenolol 25 MG Tablet;TAKE 1 TABLET TWICE DAILY; RPT Zyrtec 5 MG Tablet;TAKE 2 TABLET DAILY; RPT Coumadin 10 MG Tablet;TAKE 1 TABLET DAILY.; RPT Prozac 20 MG Capsule;TAKE 1 CAPSULE DAILY.; RPT AA-MED RECONCILE;per patient; RPT. Pain Assessment Current history of pain associated with this visit is denied. Smoking Assessment No secondhand cigarette smoke exposure. No tobacco use. Vital Signs Recorded by Erna Jain on 23 Jul 2007 09:07 AM Height: 67 in, Weight: 372.8 lb, BMI: 58.4 kg/m2. Signature Signed By: Erna Jain RN; 07/23/2007 9:09 AM STEEPING PRESS TENDER. documented in this encounter Plan of Treatment Upcoming Encounters Date Type Specialty Care Team Description 11/15/2022 Virtual Visit Pharm Haylie Gonzalez, [facility] 14[address] [facility] [place] [phone] (Lena max) 11/15/2022 Virtual Visit [place] [address] [place] [address] [place] [phone] (Lena max) 03/03/2023 Virtual Visit Neurology Erlinda Barber MD 420 [facility] 295 [place] [address] (Lena max) documented as of this encounter Visit Diagnoses Not on filedocumented in this encounter Care Teams Electrical Project Engineer Relationship Specialty Start Date End Date Mari Esparza MD PCP - General 10/05/10 10/10/11 AYLA HUTCHINSON [address] [facility] [address] [place], [place] [address] documented as of this encounter
--- OUTSIDE RECORDS SUMMARY | 2022-06-15 13:31 | XMS_ITS | Encounter Summary ---
:1945 Author Organization [facility] Address [address] [place] [address] Care Team Providers Name Role Phone Unavailable Primary Care Provider Unavailable Reason for Visit Reason Onset Date Comments Refill Request 09/26/2006 Hao Julien Encounter Details Date Type Department Care Team Description 09/26/2006 Refill [facility] Mari Beard MD Refill Request 14[address] [facility] JOYCE HUTCHINSON (Hao Julien) [place] [phone] [address] [phone] [place] [address] (Wo rk) Social History Tobacco [...] this encounter Miscellaneous Notes Telephone Encounter - Radha Flower - 09/26/2006 11:51 AM CDT Last px 09/05/05, pt has appt on 10/03/[address] Esparza. Refilled for one month to cover until appt per clinic protocol. Ashli Flower RN documented in this encounter Plan of Treatment Upcoming Encounters Date Type Specialty Care Team Description 11/15/2022 Virtual Visit Pharm D Haylie Cheung, [facility] [address] [facility] [place] [address] (Wo winter) 11/15/2022 Virtual Visit IM/Peds Yane Barraza MD 3[address] [facility] [place] [address] (Lena rk) 03/03/2023 Virtual Visit Neurology Erlinda Barber MD 420 [facility] 295 [place] [address] (Wo rk) documented as of this encounter Visit Diagnoses Diagnosis Essential hypertension, benign documented in this encounter
--- OUTSIDE RECORDS SUMMARY | 2022-06-15 13:31 | XMS_ITS | Encounter Summary ---
:1945 Author Organization [facility] Address [address] [place] [address] Care Team Providers Name Role Phone Unavailable Primary Care Provider Unavailable Encounter Details Date Type Department Care Team Description 03/22/2006 Therapy Visit [place] for Nadya Camara iamPLAN TAR FIBROMATOSIS; Athletic Medicine - PT iamJOINT PAIN-ANKLE [place] Physical [facility] Therapy [address] [place] [address] [phone] Social History Tobacco Use Types Packs/Day Years [...] documented as of this encounter Progress Notes Cornelio Rippe, Nadya - 03/22/2006 4:14 PM CDT Please refer to the daily flowsheet for treatment today. documented in this encounter Plan of Treatment Upcoming Encounters Date Type Specialty Care Team Description 11/15/2022 Virtual Visit Pharm Haylie Gonzalez, [facility] 14[address] [facility] [place] [address] (Wo rk) 11/15/2022 Virtual Visit IM/Peds Yane Barraza MD 3[address] [facility] [place] [address] (Wo rk) 03/03/2023 Virtual Visit Neurology Erlinda Barber MD 420 [facility] 295 [place], [place] [phone] (Wo rk) documented as of this encounter Procedures Procedure Name Priority Date/Time Associated Diagnosis Comme nts ZZC THERAPEUTIC Routine 03/22/2006 4:35 PM iamPLANTAR ACTIVITIES CDT FIBROMATOSIS iamJOINT PAIN-ANKLE ZZC THERAPEUTIC Routine 03/22/2006 4:35 PM iamPLANTAR EXERCISES CDT FIBROMATOSIS iamJOINT PAIN-ANKLE ZZC MECHANICAL TRACTION Routine 03/22/2006 4:35 PM iamPLANTAR THERAPY CDT FIBROMATOSIS iamJOINT PAIN-ANKLE ZZC HOT OR COLD PACKS Routine 03/22/2006 4:35 PM iamPLANTAR THERAPY CDT FIBROMATOSIS iamJOINT PAIN-ANKLE documented in this encounter Visit Diagnoses Diagnosis iamPLANTAR FIBROMATOSIS Plantar fascial fibromatosis iamJOINT PAIN-ANKLE Pain in joint, ankle and foot documented in this encounter
--- OUTSIDE RECORDS SUMMARY | 2022-06-15 13:31 | XMS_ITS | Encounter Summary ---
:1945 Author Organization [facility] Address [address] [place] [address] Care Team Providers Name Role Phone Unavailable Primary Care Provider Unavailable Encounter Details Date Type Department Care Team Description 03/13/2006 Therapy Visit [place] for Nadya Camara iamPLAN TAR FIBROMATOSIS; Athletic Medicine - PT iamJOINT PAIN-ANKLE [place] Physical [facility] Therapy [address] [place] [address] [phone] Social History Tobacco Use Types Packs/Day Years [...] encounter Progress Notes Cornelio Rippe, Nadya - 03/13/2006 3:52 PM CDT Please refer to the daily flowsheet for treatment today. documented in this encounter Plan of Treatment Upcoming Encounters Date Type Specialty Care Team Description 11/15/2022 Virtual Visit Pharm D Haylie Cheung, [facility] [address] [place] [address] (Wo rk) 11/15/2022 Virtual Visit IM/Peds Yane Barraza MD 3305 [facility] [place] [address] (Wo rk) 03/03/2023 Virtual Visit Neurology Erlinda Barber MD 420 [facility] 295 [place], [place] [address] (Wo rk) documented as of this encounter Procedures Procedure Name Priority Date/Time Associated Diagnosis Comme nts ZZC MANUAL THER Routine 03/13/2006 4:21 PM iamPLANTAR TECH,1+REGIONS,EA 15 MIN CDT FIBROMA TOSIS iamJOINT PAIN-ANKLE ZZC THERAPEUTIC Routine 03/13/2006 4:21 PM iamPLANTAR EXERCISES CDT FIBROMATOSIS iamJOINT PAIN-ANKLE ZZC HOT OR COLD PACKS Routine 03/13/2006 4:21 PM iamPLANTAR THERAPY CDT FIBROMATOSIS iamJOINT PAIN-ANKLE documented in this encounter Visit Diagnoses Diagnosis iamPLANTAR FIBROMATOSIS Plantar fascial fibromatosis iamJOINT PAIN-ANKLE Pain in joint, ankle and foot documented in this encounter
--- OUTSIDE RECORDS SUMMARY | 2022-06-15 13:31 | XMS_ITS | Encounter Summary ---
:1945 Author Organization [facility] Address [address] [place] [address] Care Team Providers Name Role Phone Unavailable Primary Care Provider Unavailable Reason for Visit Reason Comments Hypertension Encounter Details Date Type Department Care Team Description 03/10/2006 Office Visit [facility] Mari Esparza, AFTER CARE HOT BLASTER ANTICOAG USE; Yarelis PATEL PULM EMBOLISM/INFARCT NOS; 14[address] [facility] BENIGN HYPERTENSION [place] [phone] JASPER [phone] [facility] [place] [address] Social History Tobacco Use Types Packs/Day [...] Sign Reading Time Taken Comments Blood Pressure 120/80 03/10/2006 10:30 AM CDT Pulse 64 03/10/2006 10:30 AM CDT Temperature - - Respiratory Rate - - Oxygen Saturation - - Inhaled Oxygen Concentration - - Weight 169.3 kg (373 lb 3.2 oz) 03/10/2006 10:30 AM CDT Height 168.3 cm (5' 6.25) 03/10/2006 10:30 AM CDT Body Mass Index 59.78 03/10/2006 10:30 AM CDT documented in this encounter Progress Notes Isaias Mari Kay - 03/12/2006 8:57 PM CDT S: Charlette Brush is a 61 year old female who is here for follow up evaluation of HTN. Doing well. Needs refill of coumadin 10mg tabs. Only got 2.5mg when she went to pharmacy last time. Patient Active Problem List Diagnoses Code ??? BENIGN HYPERTENSION 401.1 ??? PULM EMBOLISM/INFARCT NOS 415.19 ??? EDEMA 782.3 ??? MORBID OBESITY 278.01 ??? OTHER LYMPHEDEMA 457.1 ? ? OBSTRUCTIVE SLEEP APNEA, ADULT & PED 327.23 ??? 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 iamJOINT PAIN-ANKLE 719.47 Past Medical History Diagnosis Date ??? benign positional vertigo 09/08/2004 s/p canolith repositioning 07/21 ??? OTHER LYMPHEDEMA 11/04/2003 ??? BENIGN HYPERTENSION 07/30/2003 ??? PULM EMBOLISM/INFARCT NOS 11/20/2001 Current outpatient prescriptions Medication Sig ??? ZYRTEC 5 MG OR TABS 1 tab BID ??? COUMADIN 10 MG OR TABS 1 tab qd ??? ATENOLOL 25 MG OR TABS 1 tab po BID ??? TRIAMTERENE-HCTZ 37.5-25 MG OR CAPS 1 CAPSULE DAILY ??? COZAAR 50 MG OR TABS 1 TABLET DAILY ??? ACETAMINOPHEN 500 MG OR TABS 1 tab qd ??? HYDROCORTISONE (TOPICAL) 2.5 % EX OINT apply as needed ??? TOPICORT 0.05 % EX GEL apply 3 times daily as needed below knees ??? COUMADIN 2.5 MG OR TABS as directed ??? ZYRTEC-D 5-120 MG OR TB12 1 tab in am ??? VICODIN 5-500 MG OR TABS 1-2 TABLET EVERY 4 TO 6 HOURS NEEDED Patient is well known and past medical history, problem list, surgical and social histories were reviewed and updated today. O: BP 120/80 Pulse 64 Ht 5' 6.25 (1.68m) Wt 373 lbs 3.2 oz (169.3kg) LMP Postmenopausal well appearing, no distress Exam deferred today. A/P: V58.61 AFTERCARE [facility] ANTICOAG USE Note: Plan: COUMADIN 10 MG OR TABS 415.19 PULM EMBOLISM/INFARCT NOS Note: Plan: COUMADIN 10 MG OR TABS 401.1 BENIGN HYPERTENSION Note: Plan: ATENOLOL 25 MG OR TABS Continue current meds, follow up for routine preventive health schedule documented in this encounter Nursing Notes 03/10/2006 10:30 AM CDT >> IMANI DICKINSON 03/10/2006 10:37 am Charlette Brush presents for blood pressure follow-up. Initial BP 120/80 Pulse 64 Ht 5' 6.25 (1.68m) Wt 373 lbs 3.2 oz (169.3kg) LMP Postmenopausal Body mass index is 59.76 kg/(m^2).. 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
--- OUTSIDE RECORDS SUMMARY | 2022-06-15 13:31 | XMS_ITS | Encounter Summary ---
:1945 Author Organization [facility] Address [address] [place] [address] Care Team Providers Name Role Phone Unavailable Primary Care Provider Unavailable Encounter Details Date Type Department Care Team Description 03/17/2006 Therapy Visit [place] for ValentinJuice, iamPLANTAR FIBROMATOSIS; Athletic Medicine - PT iamJOINT PAIN-ANKLE [place] [facility] [address] [facility] Mehreen [facility] [address] [place] [phone] Social History Tobacco Use Types Packs/Day Years [...] documented as of this encounter Progress Notes Juice Hanson - 03/17/2006 3:24 PM CDT Please refer to the daily flowsheet for treatment today. documented in this encounter Plan of Treatment Upcoming Encounters Date Type Specialty Care Team Description 11/15/2022 Virtual Visit Pharm Haylie Gonzalez, [facility] 14[address] [facility] [address] [place], [place] [phone] (Wo rk) 11/15/2022 Virtual Visit IM/Peds Yane Barraza MD [address] [facility] [address] [facility] [address] [place] [phone] (Wo rk) 03/03/2023 Virtual Visit Neurology Erlinda Barber MD 420 [facility] 295 [place] [address] (Wo rk) documented as of this encounter Procedures Procedure Name Priority Date/Time Associated Diagnosis Comme nts [facility] THERAPEUTIC Routine 03/17/2006 3:51 PM iamPLANTAR ACTIVITIES CDT FIBROMATOSIS iamJOINT PAIN-ANKLE [facility] THERAPEUTIC Routine 03/17/2006 3:51 PM iamPLANTAR EXERCISES CDT FIBROMATOSIS iamJOINT PAIN-ANKLE documented in this encounter Visit Diagnoses Diagnosis iamPLANTAR FIBROMATOSIS Plantar fascial fibromatosis iamJOINT PAIN-ANKLE Pain in joint, ankle and foot documented in this encounter
--- OUTSIDE RECORDS SUMMARY | 2022-06-15 13:31 | XMS_ITS | Encounter Summary ---
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 EA ANTICOAGULATION CLINIC Qing Guy RN TAL TECHNICIAN documented in this encounter Nursing Notes 09/21/2006 4:00 PM CST >> QING GUY 09/21/2006 4:28 pm Charlette Brush presents for INR. Estimated Body mass index is 62.54 kg/(m^2) as calculated from: Height of 5' 6.25 (1.683 m) as of 08/10/06 Weight of 390 lbs 8.0 oz (177.130 kg) as of this encounter Qing Guy RN documented in this encounter Plan of Treatment Upcoming Encounters Date Type Specialty Care Team Description 11/15/2022 Virtual Visit Pharm Haylie Gonzalez, [facility] 1440 [facility] [place] [address] (Wo winter) 11/15/2022 Virtual Visit IM/Peds Yane Barraza MD 3305 [facility] [place] [phone] (Wo winter) 03/03/2023 Virtual Visit Neurology Erlinda Barber MD 420 [facility] 295 [place], [place] [phone] (Lena max) documented as of this encounter Procedures Procedure Name Priority Date/Time Associated Diagnosis Comme nts HCL INR POCT Routine 09/21/2006 Aftercare Halfway Results for this Anticoag Use procedure are i n the results section . documented in this encounter Results INR POINT OF CARE (09/21/2006) P athologist Signature INR Point of 2.3 [facility] Mari Esparza MD LABORATORY Performing Organization Address City/State/ZIP Code Phon e Number [facility] documented in this encounter Visit Diagnoses Diagnosis care home (current) use of anticoagulant s - Primary Long-term (current) use of anticoagulant s documented in this encounter
--- OUTSIDE RECORDS SUMMARY | 2022-06-15 13:31 | XMS_ITS | Encounter Summary ---
:1945 Author Organization [facility] Address [address] [place] [address] Care Team Providers Name Role Phone Unavailable Primary Care Provider Unavailable Reason for Visit Reason Comments Anticoagulation Encounter Details Date Type Department Care Team Description 04/06/2006 Office Visit [facility] Eag an AFTERCARE [facility] 1440 [employer] ANTICOAG USE (Primary Dx) [place] [phone] Social History Tobacco Use Types Packs/Day [...] - Inhaled Oxygen Concentration - - Weight 173.7 kg (383 lb) 04/06/2006 4:00 PM CDT Height - - Body Mass Index 61.35 03/10/2006 10:30 AM CDT documented in this encounter Progress Notes Qing Guy - 04/06/2006 4:39 PM CDT ANTICOAGULATION FOLLOW-UP CLINIC VISIT Patient Name: Charlette Brush Date: 04/06/2006 SUBJECTIVE: Bleeding Signs/Symptoms: None Thromboembolic Signs/Symptoms: None Medication Changes: No Dietary Changes: No Bacterial/Viral Infection: No Missed Coumadin Doses: None Other Concerns: No ASSESSMENT/PLAN: See: ANTICOAGULATION QIC flow sheet. EA ANTICOAGULATION CLINIC Qing Guy RN documented in this encounter Nursing Notes 04/06/2006 4:00 PM CDT >> QING GUY 04/06/2006 4:17 pm Charlette Brush presents for INR. Estimated Body mass index is 61.33 kg/(m^2) as calculated from: Height of 5' 6.25 (1.683 m) as of 03/10/06 Weight of 383 lbs (173.728 kg) as of this encounter Qing Guy RN documented in this encounter Plan of Treatment Upcoming Encounters Date Type Specialty Care Team Description 11/15/2022 Virtual Visit Pharm Haylie Gonzalez, [facility] [address] [facility] [address] [place] [phone] (Lena max) 11/15/2022 Virtual Visit [place] [address] [place] [address] [place] [phone] (Lena max) 03/03/2023 Virtual Visit Neurology Erlinda Barber MD 420 [facility] 295 [place], [place] [phone] (Lena max) documented as of this encounter Procedures Procedure Name Priority Date/Time Associated Diagnosis Comme nts HCL INR POCT Routine 04/06/2006 Aftercare Longterm Results for this Anticoag Use procedure are i n the results section . 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
--- OUTSIDE RECORDS SUMMARY | 2022-06-15 13:31 | XMS_ITS | Encounter Summary ---
:1945 Author Organization [facility] Address [address] [place] [address] Care Team Providers Name Role Phone Unavailable Primary Care Provider Unavailable Encounter Details Date Type Department Care Team Description 03/24/2006 Therapy Visit [place] for Nadya Camara iamPLAN TAR FIBROMATOSIS; Athletic Medicine - PT iamJOINT PAIN-ANKLE [place] Physical [facility] Therapy [address] [place] [address] [phone] Social History Tobacco Use Types Packs/Day Years [...] encounter Progress Notes Cornelio Rippe, Nadya - 03/24/2006 3:03 PM CDT Please refer to the daily flowsheet for treatment today. Please refer to the discharge evaluation. documented in this encounter Plan of Treatment Upcoming Encounters Date Type Specialty Care Team Description 11/15/2022 Virtual Visit Pharm Haylie Gonzalez, [facility] [address] [facility] [address] [place], [place] [phone] (Wo rk) 11/15/2022 Virtual Visit IM/Peds Yane Barraza MD 3305 [facility] [place] [phone] (Wo rk) 03/03/2023 Virtual Visit Neurology Erlinda Barber MD 420 [facility] 295 [place], [place] [address] (Wo rk) documented as of this encounter Procedures Procedure Name Priority Date/Time Associated Diagnosis Comme nts [facility] NEUROMUSCULAR Routine 03/24/2006 3:34 PM iamPLANTAR RE-EDUCATION CDT FIBROMATOSIS iamJOINT PAIN-ANKLE [facility] THERAPEUTIC EXERCISES Routine 03/24/2006 3:34 PM iamPLANTA R CDT FIBROMATOSIS iamJOINT PAIN-ANKLE [facility] MECHANICAL TRACTION Routine 03/24/2006 3:34 PM iamPLANTAR THERAPY CDT FIBROMATOSIS iamJOINT PAIN-ANKLE ZZC HOT OR COLD PACKS Routine 03/24/2006 3:34 PM iamPLANTAR THERAPY CDT FIBROMATOSIS iamJOINT PAIN-ANKLE documented in this encounter Visit Diagnoses Diagnosis iamPLANTAR FIBROMATOSIS Plantar fascial fibromatosis iamJOINT PAIN-ANKLE Pain in joint, ankle and foot documented in this encounter
--- OUTSIDE RECORDS SUMMARY | 2022-06-15 13:31 | XMS_ITS | Encounter Summary ---
:1945 Author Organization [facility] Address [address] [place] [address] Care Team Providers Name Role Phone Unavailable Primary Care Provider Unavailable Reason for Visit Reason Onset Date Comments Refill Request 05/03/2006 Warfarin Encounter Details Date Type Department Care Team Description 05/03/2006 Refill [facility] Collette Esparza, Mari Sifuentes MD Refill Request 1440 [facility] JOYCE HUT[place]IN[place] (Warfarin) [place] [phone] [address] [phone] [place] [address] (Wo rk) Social History Tobacco [...] Notes Telephone Encounter - Prudence Austin - 05/03/2006 10:36 AM CDT Med filled per standard nurse protocol, pt comes in for regular INR appts. Prasanth Austin RN documented in this encounter Plan of Treatment Upcoming Encounters Date Type Specialty Care Team Description 11/15/2022 Virtual Visit Pharm D Haylie Cheung, [facility] [address] [facility] [place] [address] (Wo rk) 11/15/2022 Virtual Visit IM/Peds Yane Barraza MD 3305 [facility] [place] [address] (Wo winter) 03/03/2023 Virtual Visit Neurology Erlinda Barber MD 420 [facility] 295 [place] [address] (Wo winter) documented as of this encounter Visit Diagnoses Diagnosis snf (current) use of anticoagulant s Long-term (current) use of anticoagulant s Other pulmonary embolism and infarction documented in this encounter
--- OUTSIDE RECORDS SUMMARY | 2022-06-15 13:31 | XMS_ITS | Encounter Summary ---
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 EA ANTICOAGULATION CLINIC Qing Guy RN CTOR OF FRONT OFFICE documented in this encounter Nursing Notes 06/01/2006 4:00 PM CST >> QING GUY 06/01/2006 4:16 pm Charlette Brush presents for INR. Estimated Body mass index is 61.05 kg/(m^2) as calculated from: Height of 5' 6.25 (1.683 m) as of 04/07/06 Weight of 381 lbs 3.2 oz (172.911 kg) as of this encounter Qing Guy RN documented in this encounter Plan of Treatment Upcoming Encounters Date Type Specialty Care Team Description 11/15/2022 Virtual Visit Pharm Haylie Gonzalez, [facility] [address] [facility] [place] [address] (Lena max) 11/15/2022 Virtual Visit [place] [address] [place] [address] [place] [phone] (Lena max) 03/03/2023 Virtual Visit Neurology Erlinda Barber MD 420 [facility] 295 [place], [place] [phone] (Lnea max) documented as of this encounter Procedures Procedure Name Priority Date/Time Associated Diagnosis Comme nts HCL INR POCT Routine 06/01/2006 Aftercare Afloat Cryptologic Manager Results for this Anticoag Use procedure are i n the results section . documented in this encounter Results INR POINT OF CARE (06/01/2006) P athologist Signature INR Point of 2.3 [facility] Care LAB Mari Esparza MD LABORATORY Performing Organization Address City/State/ZIP Code Phon e Number [facility] documented in this encounter Visit Diagnoses Diagnosis longterm (current) use of anticoagulant s - Primary Long-term (current) use of anticoagulant s documented in this encounter
--- OUTSIDE RECORDS SUMMARY | 2022-06-15 13:31 | XMS_ITS | Encounter Summary ---
:1945 Author Organization [place] Address [address] [place] [address] Care Team Providers Name Role Phone Unavailable Primary Care Provider Unavailable Reason for Visit Reason Onset Date Comments Refill Request 08/31/2006 [facility] Encounter Details Date Type Department Care Team Description 08/31/2006 Refill [facility] Mari Beard MD Refill Request ([facility]) 1440 [facility] [place] [phone] [address] [phone] [place] [address] (Wo rk) Social History Tobacco [...] Notes Telephone Encounter - Susie Murphy - 08/31/2006 10:49 AM CST Last filled 08-01-06. Pt has appt scheduled 09-15-06. Susie Murphy RN EY DOCTOR documented in this encounter Plan of Treatment Upcoming Encounters Date Type Specialty Care Team Description 11/15/2022 Virtual Visit Pharm D Haylie Cheung, [facility] [address] [facility] [place] [address] (Wo rk) 11/15/2022 Virtual Visit [place] [address] [place] [address] [place] [address] (Wo rk) 03/03/2023 Virtual Visit Neurology Erlinda Barber MD 420 [facility] 295 [place] [address] (Wo rk) documented as of this encounter Visit Diagnoses Not on filedocumented in this encounter
--- OUTSIDE RECORDS SUMMARY | 2022-06-15 13:31 | XMS_ITS | Encounter Summary ---
:1945 Author Organization [facility] Address [address] [place] [address] Care Team Providers Name Role Phone Unavailable Primary Care Provider Unavailable Reason for Visit Reason Onset Date Comments Refill Request 08/30/2006 Triamterene/HCTZ and Hao Encounter Details Date Type Department Care Team Description 08/30/2006 Refill [facility] Mari Beard MD Refill Request 1440 [facility] JOYCE HUTCHINSON (Triamterene/HCTZ and [place] [phone] [place] [address] DR Bui) [phone] [place] [address] (Wo rk) Social History Tobacco [...] Miscellaneous Notes Telephone Encounter - Danni Marcus - 08/30/2006 11:29 AM CST Medication refilled per standing order protocol-given one month only, and pharmacy advised to notifypatient that they are due for an office appt. Last office visit-03/10/06. Last BP-120/80. Last Comprehensive Metabolic panel-09/05/05. Meds last ordered-07/31/06 for one month supply pending appt in Aug. Pt has a physical scheduled-09/15/06, and can get further refills at that visit. Ashli Marcus RN PREPARATION OPERATOR documented in this encounter Plan of Treatment Upcoming Encounters Date Type Specialty Care Team Description 11/15/2022 Virtual Visit Pharm Haylie Gonzalez, [facility] [address] [facility] [address] [place] [phone] (Lena max) 11/15/2022 Virtual Visit IM/Yane Mathias MD [address]305 [facility] [place] [phone] (Lena max) 03/03/2023 Virtual Visit Neurology Erlinda Barber MD 420 [facility] 295 [place], [place] [address] (Lena max) documented as of this encounter Visit Diagnoses Diagnosis Essential hypertension, benign documented in this encounter
--- OUTSIDE RECORDS SUMMARY | 2022-06-15 13:31 | XMS_ITS | Encounter Summary ---
:1945 Author Organization [place] Address [address] [place] [address] Care Team Providers Name Role Phone Unavailable Primary Care Provider Unavailable Reason for Visit Reason Onset Date Comments Refill Request 04/04/2006 Atenolol Encounter Details Date Type Department Care Team Description 04/04/2006 Refill [facility] Mari Larsen MD Refill Request 1440 [facility] JOYCE HUTCHIN[place] (Atenolol) [place] [phone] [address] [phone] [place] [address] (Wo rk) Social History Tobacco [...] Notes Telephone Encounter - Qing Guy - 04/06/2006 11:32 AM CDT Per EMR, she had her BP checked on 10/07/05 120/76 at INR visit. She had it checked again on 02/01/06 118/[address] Burnham. She also had an office visit with Dr. Esparza on 03/10/06 120/80 and was given a Rx for Atenolol with 11 refills. Called [facility] to confirm this and they do have it on file. Qing Guy RN Telephone Encounter - Radha Flower - 04/04/2006 5:02 PM CDT Last labs and OV 08/22. BP 133/90. Pt was to have BP rechecked at INR visit, but do not see any documentation of this. Pt has INR visit this 04/06, asked Qing Guy RN to check at visit. Will give one month refill until BP checked. Ashli Flower RN documented in this encounter Plan of Treatment Upcoming Encounters Date Type Specialty Care Team Description 11/15/2022 Virtual Visit Pharm D Haylie Cheung, [facility] [address] [facility] [address] [place], [place] [phone] (Wo rk) 11/15/2022 Virtual Visit [place] [address] [place] [address] [place] [phone] (Wo rk) 03/03/2023 Virtual Visit Neurology Erlinda Barber MD 420 [facility] 295 [place] [address] (Lena rk) documented as of this encounter Visit Diagnoses Diagnosis Essential hypertension, benign documented in this encounter
--- OUTSIDE RECORDS SUMMARY | 2022-06-15 13:31 | XMS_ITS | Encounter Summary ---
:1945 Author Organization [place] Address [address] [place] [address] Care Team Providers Name Role Phone Unavailable Primary Care Provider Unavailable Reason for Visit Reason Onset Date Comments Refill Request 07/31/2006 cozaar and triam/hct z Encounter Details Date Type Department Care Team Description 07/31/2006 Refill [facility] Mari Beard MD Refill Request (cozaar 1440 [facility] JOYCE HUTCHINSON and triam/hctz) [place] [phone] [address] [phone] [place] [address] (Wo rk) Social History Tobacco [...] Notes Telephone Encounter - Susie Murphy - 07/31/2006 2:24 PM CST Date last filled: 07-01-06 Date of last OV: 03-10-06 BP: 120/80 Date of last labs pertaining to med: 09-05-05 Last px: scheduled 09-04-06 Refilled per standing order x1 asking pt to get refills at upcoming appt. Susie Murphy RN GE CAR ATTENDANT documented in this encounter Plan of Treatment Upcoming Encounters Date Type Specialty Care Team Description 11/15/2022 Virtual Visit Pharm D Haylie Cheung, [facility] 14[address] [facility] [address] [place] [phone] (Wo rk) 11/15/2022 Virtual Visit IM/Peds Yane Barraza MD 3305 [facility] [place] [phone] (Wo rk) 03/03/2023 Virtual Visit Neurology Erlinda Barber MD 420 [facility] 295 [place] [address] (Lena rk) documented as of this encounter Visit Diagnoses Diagnosis Essential hypertension, benign documented in this encounter
--- OUTSIDE RECORDS SUMMARY | 2022-06-15 13:31 | XMS_ITS | Encounter Summary ---
:1945 Author Organization [place] Address [address] [place] [address] Care Team Providers Name Role Phone Unavailable Primary Care Provider Unavailable Encounter Details Date Type Department Care Team Description 03/10/2006 Therapy Visit [place] [facility] Justin Tracey i amPLANTAR FIBROMATOSIS; Medicine - Loleta W, PT iamJOVINCENT PAIN-ANKLE Physical Therapy [address] [facility] David Barron [facility]. [facility] Mikey [address] [place] [phone] Social History Tobacco Use Types Packs/Day Years [...] documented as of this encounter Progress Notes Justin Tracey - 03/10/2006 3:28 PM CDT Please refer to the daily flowsheet for treatment today. documented in this encounter Plan of Treatment Upcoming Encounters Date Type Specialty Care Team Description 11/15/2022 Virtual Visit Pharm D Haylie Cheung, [facility] [address] [facility] [place] [address] (Wo rk) 11/15/2022 Virtual Visit IM/Peds Yane Barraza MD [address] [facility] [place] [address] (Wo rk) 03/03/2023 Virtual Visit Neurology Erlinda Barber MD 420 [facility] 295 [place] [address] (Wo rk) documented as of this encounter Procedures Procedure Name Priority Date/Time Associated Diagnosis Comme nts ZZC THERAPEUTIC Routine 03/10/2006 3:28 PM iamPLANTAR ACTIVITIES CDT FIBROMATOSIS iamJOINT PAIN-ANKLE ZZC THERAPEUTIC Routine 03/10/2006 3:28 PM iamPLANTAR EXERCISES CDT FIBROMATOSIS iamJOINT PAIN-ANKLE Z ULTRASOUND THERAPY Routine 03/10/2006 3:28 PM iamPLANTAR CDT FIBROMATOSIS iamJOINT PAIN-ANKLE documented in this encounter Visit Diagnoses Diagnosis iamPLANTAR FIBROMATOSIS Plantar fascial fibromatosis iamJOINT PAIN-ANKLE Pain in joint, ankle and foot documented in this encounter
--- OUTSIDE RECORDS SUMMARY | 2022-06-15 13:31 | XMS_ITS | Encounter Summary ---
:1945 Author Organization [place] Address [address] [place] [address] Care Team Providers Name Role Phone Unavailable Primary Care Provider Unavailable Reason for Visit Reason Comments Anticoagulation Encounter Details Date Type Department Care Team Description 03/09/2006 Office Visit [facility] Eag an [facility] [address] ANTICOAG USE (Primary Dx) [place] [phone] Social History Tobacco Use Types Packs/Day [...] - Inhaled Oxygen Concentration - - Weight 169 kg (372 lb 8 oz) 03/09/2006 4:00 PM CDT Height - - Body Mass Index 59.22 02/01/2006 11:45 AM CDT documented in this encounter Progress Notes Qing Guy - 03/09/2006 4:27 PM CDT ANTICOAGULATION FOLLOW-UP CLINIC VISIT Patient Name: Charlette Brush Date: 03/09/2006 SUBJECTIVE: Bleeding Signs/Symptoms: None Thromboembolic Signs/Symptoms: None Medication Changes: No Dietary Changes: No Bacterial/Viral Infection: No Missed Coumadin Doses: None Other Concerns: No ASSESSMENT/PLAN: See: ANTICOAGULATION QIC flow sheet. [facility] ANTICOAGULATION CLINIC Qing Guy RN documented in this encounter Nursing Notes 03/09/2006 4:00 PM CDT >> QING GUY 03/09/2006 4:31 pm Charlette Brush presents for INR. Initial Wt 372 lbs 8.0 oz (169.0kg) LMP Postmenopausal Estimated Body mass index is 59.23 kg/(m^2)as calculated from: Height of 5' 6.5 (1.689 m) as of 02/01/06 Weight of 372 lbs 8.0 oz (168.965 kg) as of this encounter. Qing Guy RN documented in this encounter Plan of Treatment Upcoming Encounters Date Type Specialty Care Team Description 11/15/2022 Virtual Visit Pharm Haylie Gonzalez, [facility] [address] [facility] [address] [place] [phone] (Lena max) 11/15/2022 Virtual Visit [place] [address] [place] [address] [facility] [place] [phone] (Lena max) 03/03/2023 Virtual Visit Neurology Erlinda Barber MD 420 [facility] 295 [place], [place] [phone] (Lena max) documented as of this encounter Procedures Procedure Name Priority Date/Time Associated Diagnosis Comme nts HCL INR POCT Routine 03/09/2006 Aftercare [facility]-Way Results for this Anticoag Use procedure are i n the results section . documented in this encounter Results INR POINT OF CARE (03/09/2006) P athologist Signature INR Point of 2.0 [facility] Mari Esparza MD LABORATORY Performing Organization Address City/State/ZIP Code Phon e Number [facility] documented in this encounter Visit Diagnoses Diagnosis retirement (current) use of anticoagulant s - Primary Long-term (current) use of anticoagulant s documented in this encounter
--- OUTSIDE RECORDS SUMMARY | 2022-06-15 13:31 | XMS_ITS | Encounter Summary ---
:1945 Author Organization [place] Address [address] [place] [address] Care Team Providers Name Role Phone Unavailable Primary Care Provider Unavailable Reason for Visit Reason Comments Anticoagulation Encounter Details Date Type Department Care Team Description 06/29/2006 Office Visit [facility] Eag an [facility] 14[address] [employer] ANTICOAG USE (Primary Dx) [place] [phone] Social [...] Weight 174 kg (383 lb 9.6 oz) 06/29/2006 4:00 PM MANAGER GLOBAL Height - - Body Mass Index 61.45 04/07/2006 8:15 AM CDT documented in this encounter Progress Notes Qing Guy - 06/29/2006 6:00 PM CST ANTICOAGULATION FOLLOW-UP CLINIC VISIT Patient Name: Charlette Brush Date: 06/29/2006 SUBJECTIVE: Bleeding Signs/Symptoms: None Thromboembolic Signs/Symptoms: None Medication Changes: No Dietary Changes: No Bacterial/Viral Infection: No Missed Coumadin Doses: None Other Concerns: No ASSESSMENT/PLAN: See: ANTICOAGULATION QIC flow sheet. EA ANTICOAGULATION CLINIC Qing Guy RN GER GLOBAL documented in this encounter Nursing Notes 06/29/2006 4:00 PM CST >> QING GUY 06/29/2006 4:12 pm Charlette Brush presents for INR. Estimated Body mass index is 61.43 kg/(m^2) as calculated from: Height of 5' 6.25 (1.683 m) as of 04/07/06 Weight of 383 lbs 9.6 oz (174.000 kg) as of this encounter Qing Guy RN documented in this encounter Plan of Treatment Upcoming Encounters Date Type Specialty Care Team Description 11/15/2022 Virtual Visit Pharm Haylie Gonzalez, [facility] [address] [facility] [place] [address] (Lena max) 11/15/2022 Virtual Visit [place] [address] [place] [address] [place] [phone] (Lena max) 03/03/2023 Virtual Visit Neurology Erlinda Barber MD 420 [facility] 295 [place], [place] [address] (Lena max) documented as of this encounter Procedures Procedure Name Priority Date/Time Associated Diagnosis Comme nts HCL INR POCT Routine 06/29/2006 [facility] Results for this Anticoag Use procedure are i n the results section . documented in this encounter Results INR POINT OF CARE (06/29/2006) P athologist Signature INR Point of 2.1 [facility] Mari Esparza MD LABORATORY Performing Organization Address City/State/ZIP Code Phon e Number [facility] documented in this encounter Visit Diagnoses Diagnosis terminal gauger (current) use of anticoagulant s - Primary Long-term (current) use of anticoagulant s documented in this encounter
--- OUTSIDE RECORDS SUMMARY | 2022-06-15 13:31 | XMS_ITS | Encounter Summary ---
:1945 Author Organization [place] Address [address] [place] [address] Care Team Providers Name Role Phone Unavailable Primary Care Provider Unavailable Reason for Visit Reason Onset Date Comments Refill Request 09/04/2006 Atenolol Encounter Details Date Type Department Care Team Description 09/04/2006 Refill [facility] Mari Larsen MD Refill Request 1440 [facility] JOYCE HUTCHINSON (Atenolol) [place] [phone] [address] [phone] [place] [address] (Wo rk) Social History Tobacco [...] Notes Telephone Encounter - Radha Flower - 09/04/2006 10:20 AM CST Last related OV 02/19. Pt has appt on 09/21/05. Refilled for one month to cover per clinic protocol. Ashli Flower RN LER TENDER documented in this encounter Plan of Treatment Upcoming Encounters Date Type Specialty Care Team Description 11/15/2022 Virtual Visit Pharm D Haylie Cheung, [facility] [address] [place] [address] (Wo rk) 11/15/2022 Virtual Visit [place] [address] [place] [address] [place] [address] (Wo rk) 03/03/2023 Virtual Visit Neurology Erlinda Barber MD 420 [facility] 295 [place] [address] (Wo rk) documented as of this encounter Visit Diagnoses Diagnosis Essential hypertension, benign documented in this encounter
--- OUTSIDE RECORDS SUMMARY | 2022-06-15 13:31 | XMS_ITS | Encounter Summary ---
:1945 Author Organization [place] Address [address] [place] [address] Care Team Providers Name Role Phone Unavailable Primary Care Provider Unavailable Encounter Details Date Type Department Care Team Description 03/08/2006 Therapy Visit [place] [facility] Valentin, Juice, iamPLANTAR FIBROMATOSIS; Athletic Medicine - PT iamJOINT PAIN-ANKLE [place] [facility] [address] [facility] Mehreen [facility] [address] [place] [phone] Social History Tobacco Use [...] this encounter Progress Notes Juice Hanson - 03/08/2006 6:12 PM CDT Please refer to the daily flowsheet for treatment today. documented in this encounter Plan of Treatment Upcoming Encounters Date Type Specialty Care Team Description 11/15/2022 Virtual Visit Pharm Haylie Gonzalez, [facility] [address] [facility] [address] [place], [place] [phone] (Wo rk) 11/15/2022 Virtual Visit IM/Peds Yane Barraza MD [address] [facility] [address] [place] [phone] (Wo rk) 03/03/2023 Virtual Visit Neurology Erlinda Barber MD 420 [facility] 295 [place] [address] (Wo rk) documented as of this encounter Procedures Procedure Name Priority Date/Time Associated Diagnosis Comme nts ZZC THERAPEUTIC Routine 03/08/2006 6:13 PM iamPLANTAR ACTIVITIES CDT FIBROMATOSIS iamJOINT PAIN-ANKLE ZZC THERAPEUTIC Routine 03/08/2006 6:13 PM iamPLANTAR EXERCISES CDT FIBROMATOSIS iamJOINT PAIN-ANKLE ZZC ULTRASOUND THERAPY Routine 03/08/2006 6:13 PM iamPLANTAR CDT FIBROMATOSIS iamJOINT PAIN-ANKLE ZZC HOT OR COLD PACKS Routine 03/08/2006 6:13 PM iamPLANTAR THERAPY CDT FIBROMATOSIS iamJOINT PAIN-ANKLE documented in this encounter Visit Diagnoses Diagnosis iamPLANTAR FIBROMATOSIS Plantar fascial fibromatosis iamJOINT PAIN-ANKLE Pain in joint, ankle and foot documented in this encounter
--- OUTSIDE RECORDS SUMMARY | 2022-06-15 13:31 | XMS_ITS | Encounter Summary ---
:1945 Author Organization [place] Address [address] [place] [address] Care Team Providers Name Role Phone Unavailable Primary Care Provider Unavailable Reason for Visit Reason Onset Date Comments Refill Request 07/03/2006 cozaar and triam/hct z Encounter Details Date Type Department Care Team Description 07/03/2006 Refill [facility] Mari Beard MD Refill Request (cozaar 1440 [facility] JOYCE HUTCHINSON and triam/hctz) [place] [phone] [address] [phone] [place] [address] (Wo rk) Social History Tobacco [...] Notes Telephone Encounter - Susie Murphy - 07/03/2006 10:21 AM CST Date last filled: 06-01-06 Date of last OV: 03-10-06 BP: 120/80 Date of last labs pertaining to med: 09-05-05 Last px: needs now Refilled per standing order x1 reminding pt to schedule px. Susie Murphy RN SCIENCE TECHNICIAN documented in this encounter Plan of Treatment Upcoming Encounters Date Type Specialty Care Team Description 11/15/2022 Virtual Visit Pharm D Haylie Cheung, [facility] 1440 [facility] [place] [address] (Lena max) 11/15/2022 Virtual Visit IM/Peds Yane Barraza MD 3305 [facility] [place] [address] (Lena max) 03/03/2023 Virtual Visit Neurology Erlinda Barber MD 420 [facility] 295 [place] [address] (Lena max) documented as of this encounter Visit Diagnoses Diagnosis Essential hypertension, benign documented in this encounter
--- OUTSIDE RECORDS SUMMARY | 2022-06-15 13:31 | XMS_ITS | Encounter Summary ---
:1945 Author Organization [place] Address [address] [place] [address] Care Team Providers Name Role Phone Unavailable Primary Care Provider Unavailable Reason for Visit Reason Onset Date Comments Refill Request 09/28/2006 rust Encounter Details Date Type Department Care Team Description 09/28/2006 Refill [facility] Mari Beard MD Refill Request (rust) 1440 [facility] [place] [phone] [address] [phone] [place] [address] (Wo rk) Social History Tobacco [...] Notes Telephone Encounter - Susie Murphy - 09/28/2006 10:07 AM CDT Date last filled: 08-31-06 Date of last OV: 09-05-05 Last px: scheduled 10-03-06 Refilled per standing order x1 asking pt to get further refills at upcoming appt. Susie Murphy RN documented in this encounter Plan of Treatment Upcoming Encounters Date Type Specialty Care Team Description 11/15/2022 Virtual Visit Pharm D Haylie Cheung, [facility] 1440 [facility] [place] [address] (Wo rk) 11/15/2022 Virtual Visit IM/Yane Mathias MD 3305 [facility] [place] [phone] (Wo rk) 03/03/2023 Virtual Visit Neurology Erlinda Barber MD 420 [facility] 295 [place], [place] [phone] (Wo rk) documented as of this encounter Visit Diagnoses Diagnosis Contact dermatitis and other eczema, due to unspecified cause - Primary documented in this encounter
--- OUTSIDE RECORDS SUMMARY | 2022-06-15 13:31 | XMS_ITS | Encounter Summary ---
:1945 Author Organization [place] Address [address] [place] [address] Care Team Providers Name Role Phone Unavailable Primary Care Provider Unavailable Encounter Details Date Type Department Care Team Description 03/15/2006 Therapy Visit [place] for Valentin, Juice, iamPLANTAR FIBROMATOSIS; Athletic Medicine - PT iamJOINT PAIN-ANKLE [place] [facility] 6[address] [facility] Mehreen [facility] [address] [place] [phone] Social History Tobacco Use [...] documented as of this encounter Progress Notes Nadya Camara - 03/15/2006 4:40 PM CDT Please refer to the daily flowsheet for treatment today. documented in this encounter Plan of Treatment Upcoming Encounters Date Type Specialty Care Team Description 11/15/2022 Virtual Visit Pharm Haylie Gonzalez, [facility] [address] [facility] [address] [place], [place] [phone] (Wo rk) 11/15/2022 Virtual Visit IM/Peds Yane Barraza MD [address] [facility] [place] [address] (Wo rk) 03/03/2023 Virtual Visit Neurology Erlinda Barber MD 420 [facility] 295 [place], [place] [phone] (Wo rk) documented as of this encounter Procedures Procedure Name Priority Date/Time Associated Diagnosis Comme nts ZZC MANUAL THER Routine 03/15/2006 4:40 PM iamPLANTAR TECH,1+REGIONS,EA 15 MIN CDT FIBROMA TOSIS iamJOINT PAIN-ANKLE ZZC THERAPEUTIC Routine 03/15/2006 4:40 PM iamPLANTAR EXERCISES CDT FIBROMATOSIS iamJOINT PAIN-ANKLE ZZC HOT OR COLD PACKS Routine 03/15/2006 4:40 PM iamPLANTAR THERAPY CDT FIBROMATOSIS iamJOINT PAIN-ANKLE documented in this encounter Visit Diagnoses Diagnosis iamPLANTAR FIBROMATOSIS Plantar fascial fibromatosis iamJOINT PAIN-ANKLE Pain in joint, ankle and foot documented in this encounter
--- OUTSIDE RECORDS SUMMARY | 2022-06-15 13:31 | XMS_ITS | Encounter Summary ---
:1945 Author Organization [place] Address [address] [place] [address] Care Team Providers Name Role Phone Unavailable Primary Care Provider Unavailable Reason for Visit Reason Comments Anticoagulation Encounter Details Date Type Department Care Team Description 08/10/2006 Office Visit [facility] Eag an AFTERCARE DISTRIBUTION MANAGER [address] [place] ANTICOAG USE (Primary Dx) [place] [phone] Social [...] - Inhaled Oxygen Concentration - - Weight 174.9 kg (385 lb 9.6 oz) 08/10/2006 4:00 PM WATCH ELECTRICIAN Height 168.3 cm (5' 6.25) 08/10/2006 4:00 PM WATCH ELECTRICIAN Body Mass Index 61.77 08/10/2006 4:00 PM WATCH ELECTRICIAN documented in this encounter Progress Notes Qing Guy - 08/10/2006 4:27 PM CST ANTICOAGULATION FOLLOW-UP CLINIC VISIT Patient Name: Charlette Brush Date: 08/10/2006 SUBJECTIVE: Bleeding Signs/Symptoms: None Thromboembolic Signs/Symptoms: None Medication Changes: No Dietary Changes: No Bacterial/Viral Infection: No Missed Coumadin Doses: None Other Concerns: No ASSESSMENT/PLAN: See: ANTICOAGULATION QIC flow sheet. EA ANTICOAGULATION CLINIC Qing Guy RN H ELECTRICIAN documented in this encounter Nursing Notes 08/10/2006 4:00 PM CST >> QING GUY 08/10/2006 4:29 pm Charlette Brush presents for INR. Body mass index is 61.75 kg/(m^2). Previous BMI was an error. Qing Guy RN >> QING GUY 08/10/2006 4:12 pm Charlette Brush presents for INR. Body mass index is 45.74 kg/(m^2). Qing Guy RN documented in this encounter Plan of Treatment Upcoming Encounters Date Type Specialty Care Team Description 11/15/2022 Virtual Visit Pharm D Haylie Cheung, [facility] 1440 [facility] [place] [address] (Lena max) 11/15/2022 Virtual [place] [address] [place] [address] [address] [facility] [place] [address] (Lena max) 03/03/2023 Virtual Visit Neurology Erlinda Barber MD 420 [facility] 295 [place], [place] [phone] (Lena max) documented as of this encounter Procedures Procedure Name Priority Date/Time Associated Diagnosis Comme nts HCL INR POCT Routine 08/10/2006 [facility] Results for this Anticoag Use procedure are i n the results section . documented in this encounter Results INR POINT OF CARE (08/10/2006) P athologist Signature INR Point of 2.5 [facility] Mari Esparza MD LABORATORY Performing Organization Address City/State/ZIP Code Phon e Number [facility] documented in this encounter Visit Diagnoses Diagnosis detention (current) use of anticoagulant s - Primary Long-term (current) use of anticoagulant s documented in this encounter
--- OUTSIDE RECORDS SUMMARY | 2022-06-15 13:31 | XMS_ITS | Encounter Summary ---
:1945 Author Organization [place] Address [address] [place] [address] Care Team Providers Name Role Phone Unavailable Primary Care Provider Unavailable Reason for Visit Reason Comments Musculoskeletal Problem pt states she has tried PT f or right foot. She was advised because she is still having pain in the right heel to be seen by the Dr. Encounter Details Date Type Department Care Team Description 04/07/2006 Office Visit [facility] Leonardo Burnham FIBROMATOSIS; [facility] [place] F, DPM ACHILLES TENDINITIS; [address] [place] [address] OTHER LYMP HEDEMA [facility] [phone] [place] [address] Social History Tobacco Use Types Packs/Day Years [...] - Inhaled Oxygen Concentration - - Weight 167.8 kg (370 lb) 04/07/2006 8:15 AM CDT Height 168.3 cm (5' 6.25) 04/07/2006 8:15 AM CDT Body Mass Index 59.27 04/07/2006 8:15 AM CDT documented in this encounter Progress Notes Leonardo Burnham - 04/07/2006 8:35 AM CDT Subjective: Patient is seen today as a f/u pt with a 4-6 month hx of rt heel pain. Most painful upon rising in a.m. or after prolonged sitting. Denies history of trauma. Improvement w/ PT. ROS: No hx of wound healing problems, + coumadin, + lymphedema Objective: Pulses are palpable +2/4 DP & PT bilateral. Sensation to light touch is intact. Muscle strength and ROM is within normal limits. No sign of ulceration, infection, or drainage noted. Upon weightbearing there is a decrease in the medial longitudinal arch. Minimal pain upon palpation to the medial slip of the plantar fascia and medial calcaneal tubercle rt. Assessment: Resolving Plantar Fasciitis rt Resolving insertional achilles tendonitis rt Lymphedema Plan: Discussed etiology and treatment options with the patient. Recommended modifying activities, supportive shoes, ice, stretching, and not going barefoot. Tuli heel cups and f/u prn. documented in this encounter Nursing Notes 04/07/2006 8:15 AM CDT >> MARION PLATT 04/07/2006 8:12 am Patient presents with: Musculoskeletal Problem - pt states she has tried PT for right foot. She was advised because she isstill having pain in the right heel to be seen by the Dr. Potter Ht 5' 6.25 (1.68m) Wt 370 lbs (167.8kg) LMP Postmenopausal Body mass index is 59.25 kg/(m^2). BP completed using cuff size: NA (Not Taken). Marion Platt MA documented in this encounter Plan of Treatment Upcoming Encounters Date Type Specialty Care Team Description 11/15/2022 Virtual Visit Pharm Haylie Gonzalez, [facility] 1440 [facility] [place] [address] (Wo rk) 11/15/2022 Virtual Visit IM/Peds Yane Barraza MD 4475 [facility] [place] [address] (Wo rk) 03/03/2023 Virtual Visit Neurology Erlinda Barber MD [address] [place] [address] [facility] 295 [place] [address] (Wo winter) documented as of this encounter Visit Diagnoses Diagnosis Plantar fascial fibromatosis Achilles bursitis or tendinitis Other lymphedema documented in this encounter
--- OUTSIDE RECORDS SUMMARY | 2022-06-15 13:31 | XMS_ITS | Encounter Summary ---
:1945 Author Organization [place] Address [address] [place] [address] Care Team Providers Name Role Phone Unavailable Primary Care Provider Unavailable Reason for Visit Reason Comments Anticoagulation Flu Shot Encounter Details Date Type Department Care Team Description 05/04/2006 Office Visit [facility] Eag an AFTERCARE MUD PLANT OPERATOR ANTICOAG USE (Primary Dx); [address] [employer] VACCINE FOR INFLUENZA [place] [phone] Social History Tobacco Use [...] - Inhaled Oxygen Concentration - - Weight 171 kg (376 lb 14.4 oz) 05/04/2006 3:45 PM CDT Height - - Body Mass Index 60.37 04/07/2006 8:15 AM CDT documented in this encounter Progress Notes Qing Guy - 05/04/2006 4:14 PM CDT ANTICOAGULATION FOLLOW-UP CLINIC VISIT Patient Name: Charlette Brush Date: 05/04/2006 SUBJECTIVE: Bleeding Signs/Symptoms: None Thromboembolic Signs/Symptoms: None Medication Changes: No Dietary Changes: No Bacterial/Viral Infection: No Missed Coumadin Doses: None Other Concerns: No ASSESSMENT/PLAN: See: ANTICOAGULATION QIC flow sheet. ANTICOAGULATION CLINIC Qing Guy RN documented in this encounter Nursing Notes 05/04/2006 3:45 PM CDT >> QING GUY 05/04/2006 4:20 pm Charlette Brush presents for INR and flu shot. Injectable Influenza Immunization Documentation Form 1. Has the patient received the information for the influenza vaccine? Yes 2. Does the patient have any of the following contraindications? Allergy to eggs? No Allergic reaction to previous influenza vaccines? No Paralyzed by Guillain-[place] syndrome? No Currently have moderate or severe illness? No Allergy to contact lens solution/thimerosol? No 3. The vaccine has been administered and the patient was instructed to wait 15 minutes before leaving the building in the event of an allergic reaction: Yes Vaccination given by Qing Guy RN See immunization record for details. Estimated Body mass index is 60.36 kg/(m^2) as calculated from: Height of 5' 6.25 (1.683 m) as of 04/07/06 Weight of 376 lbs 14.4 oz (170.961 kg) as of this encounter Qing Guy RN documented in this encounter Plan of Treatment Upcoming Encounters Date Type Specialty Care Team Description 11/15/2022 Virtual Visit Pharm Haylie Gonzalez, [facility] [address] [place] [address] (Wo rk) 11/15/2022 Virtual Visit IM/Peds Yane Barraza MD [address] [facility] [place] [address] (Wo rk) 03/03/2023 Virtual Visit Neurology Erlinda Barber MD [address] [facility] [address] [place] [address] (Wo rk) documented as of this encounter Procedures Procedure Name Priority Date/Time Associated Diagnosis Comme nts HCL INR POCT Routine 05/04/2006 Aftercare Group Home Results for this Anticoag Use procedure are i n the results section . documented in this encounter Results INR POINT OF CARE (05/04/2006) P athologist Signature INR Point of 2.7 [facility] Mari Esparza MD LABORATORY Performing Organization Address City/State/ZIP Code Phon e Number [facility] documented in this encounter Visit Diagnoses Diagnosis snf (current) use of anticoagulant s - Primary Long-term (current) use of anticoagulant s Need for prophylactic vaccination and in oculation against influenza documented in this encounter
--- OUTSIDE RECORDS SUMMARY | 2022-06-15 13:32 | XMS_ITS | Encounter Summary ---
:1945 Author Organization [place] Address [address] [place] [address] Care Team Providers Name Role Phone Unavailable Primary Care Provider Unavailable Reason for Visit Reason Onset Date Comments Refill Request 09/12/2005 Warfarin Encounter Details Date Type Department Care Team Description 09/12/2005 Refill [facility] Mari Beard MD Refill Request 14[address] [facility] JOYCE HUTCHINSON (Warfarin) [place] [phone] [address] [phone] [place] [address] (Wo rk) Social History Tobacco [...] this encounter Miscellaneous Notes Telephone Encounter - Brooks Qing - 09/12/2005 10:44 AM CST Last filled: 08/11/05 Last office visit: 09/09/05 for INR Pt comes in routinely for INR checks. Refilled per nurse protocol standing orders. Qing Guy RN TURE WINDER REPAIRER documented in this encounter Plan of Treatment Upcoming Encounters Date Type Specialty Care Team Description 11/15/2022 Virtual Visit Pharm Haylie Gonzalez, [facility] [address] [place] [address] (Wo rk) 11/15/2022 Virtual Visit IM/Peds Yane Barraza MD [address] [facility] [place] [address] (Wo rk) 03/03/2023 Virtual Visit Neurology Erlinda Barber MD [address] [facility] 295 [place], [place] [phone] (Wo rk) documented as of this encounter Visit Diagnoses Not on filedocumented in this encounter
--- OUTSIDE RECORDS SUMMARY | 2022-06-15 13:32 | XMS_ITS | Encounter Summary ---
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 EA ANTICOAGULATION CLINIC Qing Guy RN documented in this encounter Nursing Notes 11/17/2005 3:30 PM CDT >> QING GUY 11/17/2005 3:40 pm Charlette Brush presents for INR. Estimated Body mass index is 58.77 kg/(m^2) as calculated from: Height of 5' 6.25 (1.683 m) as of 09/05/05 Weight of 367 lbs (166.470 kg) as of this encounter Qing Guy RN documented in this encounter Plan of Treatment Upcoming Encounters Date Type Specialty Care Team Description 11/15/2022 Virtual Visit Pharm Haylie Gonzalez, [facility] [address] [place] [address] (Lena max) 11/15/2022 Virtual Visit IM[place] [address] [place] [address] [address] [place] [phone] (Lena max) 03/03/2023 Virtual Visit Neurology Erlinda Barber MD [address] [facility] 295 [place], [place] [address] (Lena max) documented as of this encounter Procedures Procedure Name Priority Date/Time Associated Diagnosis Comme nts HCL INR POCT Routine 11/17/2005 Aftercare Crab Butcher Results for this Anticoag Use procedure are i n the results section . documented in this encounter Results INR POINT OF CARE (11/17/2005) P athologist Signature INR Point of 3.3 [facility] Mari Esparza MD LABORATORY Performing Organization Address City/State/ZIP Code Phon e Number [facility] documented in this encounter Visit Diagnoses Diagnosis termination clerk (current) use of anticoagulant s - Primary Long-term (current) use of anticoagulant s documented in this encounter
--- OUTSIDE RECORDS SUMMARY | 2022-06-15 13:32 | XMS_ITS | Encounter Summary ---
:1945 Author Organization [place] Address [address] [place] [address] Care Team Providers Name Role Phone Unavailable Primary Care Provider Unavailable Reason for Visit Reason Onset Date Comments Refill Request 01/03/2006 Warfarin Encounter Details Date Type Department Care Team Description 01/03/[address] [facility] Mari Beard MD Refill Request 14[address] [facility] JOYCE HUTCHINSON (Warfarin) [place] [phone] [address] [phone] [place] [address] (Wo rk) Social History Tobacco [...] Notes Telephone Encounter - Brooks Qing - 01/03/2006 9:18 AM CDT Refill request from pharmacy. Last filled: 12/04/05 Last office visit: 09/05/05 She comes in routinely for INR checks. Refilled per nurse protocol standing orders. Qing Guy RN documented in this encounter Plan of Treatment Upcoming Encounters Date Type Specialty Care Team Description 11/15/2022 Virtual Visit Pharm Haylie Gonzalez, [facility] [address] [place] [address] (Wo rk) 11/15/2022 Virtual Visit [place] [address] [place] [address] [place] [phone] (Wo rk) 03/03/2023 Virtual Visit Neurology Erlinda Barber MD [address] [facility] 295 [place] [address] (Wo rk) documented as of this encounter Visit Diagnoses Diagnosis 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 card tender (current) use of anticoagulant s Long-term (current) use of anticoagulant s documented in this encounter
--- OUTSIDE RECORDS SUMMARY | 2022-06-15 13:32 | XMS_ITS | Encounter Summary ---
:1945 Author Organization [place] Address [address] [place] [address] Care Team Providers Name Role Phone Unavailable Primary Care Provider Unavailable Reason for Visit Reason Comments Anticoagulation Encounter Details Date Type Department Care Team Description 06/03/2005 Office Visit [facility] Eag an AFTERCARE RESIDENTIAL [address] [employer] ANTICOAG USE (Primary Dx) [place] [phone] Social [...] this encounter Progress Notes Qing Guy - 06/03/2005 4:15 PM CST ANTICOAGULATION FOLLOW-UP CLINIC VISIT Patient Name: Charlette Brush Date: 06/03/2005 SUBJECTIVE: Bleeding Signs/Symptoms: None Thromboembolic Signs/Symptoms: None Medication Changes: NO Dietary Changes: NO Bacterial/Viral Infection: NO Missed Coumadin Doses: None Other Concerns: NO ASSESSMENT/PLAN: See: ANTICOAGULATION QIC flow sheet. EA ANTICOAGULATION CLINIC Qing Guy RN SUPPORT SPECIALIST documented in this encounter Nursing Notes 06/03/2005 3:45 PM CST >> QING GUY 06/03/2005 4:00 pm Charlette Brush presents for INR. Initial LMP Postmenopausal Estimated Body Mass Index is 55.40 kg/(m^2) as calculated from: Height of 5' 7.5 (1.715m) as of 04/15/05 Weight of 359 lbs 3.2 oz (162.932 kg) as of 05/13/05. BP completed using cuff size: NA (Not Taken) Qing Guy RN documented in this encounter Plan of Treatment Upcoming Encounters Date Type Specialty Care Team Description 11/15/2022 Virtual Visit Pharm Haylie Gonzalez, [facility] [address] [place] [address] (Lena max) 11/15/2022 Virtual Visit [place] [address] [place] [address] [place] [phone] (Wo winter) 03/03/2023 Virtual Visit Neurology Erlinda Barber MD [address] [facility] 295 [place] [address] (Wo winter) documented as of this encounter Procedures Procedure Name Priority Date/Time Associated Diagnosis Comme nts HCL INR POCT Routine 06/03/2005 Aftercare Pupil Personnel Worker Results for this Anticoag Use procedure are i n the results section . documented in this encounter Results INR POINT OF CARE (06/03/2005) P athologist Signature INR Point of 2.6 [facility] Care [facility] Mari Esparza MD LABORATORY Performing Organization Address City/State/ZIP Code Phon e Number [facility] documented in this encounter Visit Diagnoses Diagnosis quality tester (current) use of anticoagulant s - Primary Long-term (current) use of anticoagulant s documented in this encounter
--- OUTSIDE RECORDS SUMMARY | 2022-06-15 13:32 | XMS_ITS | Encounter Summary ---
:1945 Author Organization [place] Address [address] [place] [address] Care Team Providers Name Role Phone Unavailable Primary Care Provider Unavailable Reason for Visit Reason Onset Date Comments Orders 10/07/2005 Encounter Details Date Type Department Care Team Description 10/07/2005 Telephone [facility] Collette Esparza, Mari Sifuentes MD Orders 1440 [facility] [place] [phone] [address] [phone] [place] [address] (Wo rk) Social History Tobacco [...] Notes Telephone Encounter - Jennifer Alicia - 10/10/2005 10:23 AM CST Pt notified. Jennifer Alicia LPN TURNER Telephone Encounter - Mari Esparza - 10/10/2005 9:42 AM CST Theodore cole devonkarin will call her TURNER Telephone Encounter - Jennifer Alicia - 10/07/2005 4:11 PM HOSE TURNER Staff Message copied by JENNIFER ALICIA on 10/07/2005 at 4:11 PM ------ Message from: ALAN CONTRERAS Created: 10/07/2005 at 3:41 PM Regarding: af Pt was here and stated she did not get orders for a mammogram on her px on 09/05/05, Her last mammo was on 12/23/04 and she was just planning ahead. There are no future orders in system. Can these ordersbe put in and pt notified that it is done and the number where she has to call to schedule. Plz callpt at [phone]. Okay to leave msg TURNER documented in this encounter Plan of Treatment Upcoming Encounters Date Type Specialty Care Team Description 11/15/2022 Virtual Visit Pharm D Haylie Cheung, [facility] [address] [facility] [place] [address] (Lena max) 11/15/2022 Virtual Visit IM/PedYane Muir MD [address] [facility] [place] [address] (Lena max) 03/03/2023 Virtual Visit Neurology Erlinda Barber MD [address] [facility] 295 [place], [place] [address] (Lena max) Scheduled Orders Name Type Priority Associated Diagnoses Order S chedule Mammo screening* Imaging Routine Ordered: documented as of this encounter Procedures Procedure Name Priority Date/Time Associated Diagnosis Comme nts C MAMMOGRAM, Routine 12/26/2005 3:50 PM Routine general Result s for this SCREENING CDT medical examination procedur e are in at a health care the results facility section. documented in this encounter Results MAMMOGRAM, SCREENING (12/26/2005 3:50 PM CDT) Anatomical Region Laterality Modality Other Specimen (Source) Anatomical Collection Method Collection Time Re ceived Time Location / / Volume Laterality 12/26/2005 3:50 PM CDT Impressions 01/02/2006 2:15 PM CDT SCREENING MAMMOGRAM, BILATERAL ??- ??06/2006 BREAST SYMPTOMS: ??None. PREVIOUS MAMMOGRAPHY: ??Comparison with [facility] dated 12/23/2004 and 07/28/2000. ??There is no significant change. BREAST PARENCHYMA: ??Fatty/mild densiti es. FINDINGS: ??Several circumscribed nodule s scattered in the upper lateral aspects of the breast are unchan ged. ??Mammography in one year is recommended to assess for continuing stability. IMPRESSION: CATEGORY 2 Benign finding(s). TECHNOLOGIST INITIALS: ??MS This exam was evaluated with the assista nce of Computer Aided Detection (CAD). Mari Esparza MD SPECIAL IMAGING STUDIES documented in this encounter Visit Diagnoses Diagnosis Routine general medical examination at a health care facility - Primary documented in this encounter
--- OUTSIDE RECORDS SUMMARY | 2022-06-15 13:32 | XMS_ITS | Encounter Summary ---
:1945 Author Organization [place] Address [address] [place] [address] Care Team Providers Name Role Phone Unavailable Primary Care Provider Unavailable Reason for Visit Reason Comments Anticoagulation Encounter Details Date Type Department Care Team Description 10/07/2005 Office Visit [facility] Eag an AFTERCARE MCC [address] [employer] ANTICOAG USE (Primary Dx) [place] [phone] Social [...] Sign Reading Time Taken Comments Blood Pressure 120/76 10/07/2005 3:30 PM CHORAL TEACHER Pulse - - Temperature - - Respiratory Rate - - Oxygen Saturation - - Inhaled Oxygen Concentration - - Weight - - Height - - Body Mass Index - - documented in this encounter Progress Notes Qing Guy - 10/07/2005 3:42 PM CST ANTICOAGULATION FOLLOW-UP CLINIC VISIT Patient Name: Charlette Brush Date: 10/07/2005 SUBJECTIVE: Bleeding Signs/Symptoms: None Thromboembolic Signs/Symptoms: None Medication Changes: NO Dietary Changes: NO Bacterial/Viral Infection: NO Missed Coumadin Doses: None Other Concerns: NO ASSESSMENT/PLAN: See: ANTICOAGULATION QIC flow sheet. [facility] ANTICOAGULATION CLINIC Qing Guy RN AL TEACHER documented in this encounter Nursing Notes 10/07/2005 3:30 PM CST >> QING GUY 10/07/2005 3:44 pm Charlette Brush presents for INR. Initial BP 120/76 LMP Postmenopausal Estimated Body mass index is 59.65 kg/(m^2) as calculated from: Height of 5' 6.25 (1.683 m) as of 09/05/05 Weight of 372 lbs 8.0 oz (168.965 kg) as of 09/05/05. BP completed using cuff size: large Qing Guy RN documented in this encounter Plan of Treatment Upcoming Encounters Date Type Specialty Care Team Description 11/15/2022 Virtual Visit Pharm Haylie Gonzalez, [facility] [address] [place] [address] (Lena max) 11/15/2022 Virtual Visit [place] [address] [place] [address] [place] [phone] (Lena max) 03/03/2023 Virtual Visit Neurology Erlinda Barber MD 420 [facility] 295 [place], [place] [phone] (Lena max) documented as of this encounter Procedures Procedure Name Priority Date/Time Associated Diagnosis Comme nts HCL INR POCT Routine 10/07/2005 Aftercare Development Representative Results for this Anticoag Use procedure are i n the results section . 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
--- OUTSIDE RECORDS SUMMARY | 2022-06-15 13:32 | XMS_ITS | Encounter Summary ---
:1945 Author Organization [place] Address [address] [place] [address] Care Team Providers Name Role Phone Unavailable Primary Care Provider Unavailable Encounter Details Date Type Department Care Team Description 03/06/2006 Therapy Visit [place] for Valentin, Juice, iamPLANTAR FIBROMATOSIS; Athletic Medicine - PT iamJOINT PAIN-ANKLE [place] [facility] [address] [facility] Mehreen [facility] [address] [place] [phone] Social History Tobacco Use [...] this encounter Progress Notes Juice Hanson - 03/06/2006 8:29 AM CDT Initial evaluation was completed. Please refer to the daily flowsheet for treatment today. documented in this encounter Plan of Treatment Upcoming Encounters Date Type Specialty Care Team Description 11/15/2022 Virtual Visit Pharm D Haylie Cheung, [facility] [address] [facility] [place] [phone] (Wo rk) 11/15/2022 Virtual Visit IM/Peds Yane Barraza MD 3[address] [facility] [place] [phone] (Wo rk) 03/03/2023 Virtual Visit Neurology Erlinda Barber MD 420 [facility] 295 [place], [place] [phone] (Wo rk) documented as of this encounter Procedures Procedure Name Priority Date/Time Associated [facility] 03/06/2006 8:53 AM iamPLANTAR EXERCISES CDT FIBROMATOSIS iamJOINT PAIN-ANKLE [facility] ULTRASOUND THERAPY Routine 03/06/2006 8:53 AM iamPLANTAR CDT FIBROMATOSIS iamJOINT PAIN-ANKLE documented in this encounter Visit Diagnoses Diagnosis iamPLANTAR FIBROMATOSIS Plantar fascial fibromatosis iamJOINT PAIN-ANKLE Pain in joint, ankle and foot documented in this encounter
--- OUTSIDE RECORDS SUMMARY | 2022-06-15 13:32 | XMS_ITS | Encounter Summary ---
:1945 Author Organization [place] Address [address] [place] [address] Care Team Providers Name Role Phone Unavailable Primary Care Provider Unavailable Reason for Visit Reason Comments Anticoagulation Encounter Details Date Type Department Care Team Description 08/12/2005 Office Visit [facility] Eag an AFTERCARE BENEFITS CONSULTANT [address] [employer] ANTICOAG USE (Primary Dx) [place] [phone] Social [...] this encounter Progress Notes Qing Guy - 08/12/2005 2:57 PM CST ANTICOAGULATION FOLLOW-UP CLINIC VISIT Patient Name: Charlette Brush Date: 08/12/2005 SUBJECTIVE: Bleeding Signs/Symptoms: None Thromboembolic Signs/Symptoms: None Medication Changes: She has been taking some Tylenol for her cold symptoms. Dietary Changes: NO Bacterial/Viral Infection: She has had a runny nose x 3 days. Missed Coumadin Doses: None Other Concerns: NO ASSESSMENT/PLAN: See: ANTICOAGULATION QIC flow sheet. [facility] ANTICOAGULATION CLINIC Qing Guy RN TARY TECHNICIAN documented in this encounter Nursing Notes 08/12/2005 2:15 PM CST >> QING GUY 08/12/2005 2:59 pm Charlette Brush presents for INR. Initial [...] Haylie Cheung, [facility] [address] [facility] [place] [address] (Lena max) 11/15/2022 Virtual Visit IM[place] [address] [place] [address] [place] [phone] (Lena max) 03/03/2023 Virtual Visit Neurology Erlinda Barber MD 420 [facility] 295 [place] [address] (Lena max) documented as of this encounter Procedures Procedure Name Priority Date/Time Associated Diagnosis Comme nts HCL INR POCT Routine 08/12/2005 Aftercare Lead Web Application Developer Results for this Anticoag Use procedure are i n the results section . documented in this encounter Results INR POINT OF CARE (08/12/2005) P athologist Signature INR Point of 2.6 [facility] Care LAB Mari Esparza MD LABORATORY Performing Organization Address City/State/ZIP Code Phon e Number [facility]IS[facility]ILLING LAB documented in this encounter Visit Diagnoses Diagnosis terminal worker (current) use of anticoagulant s - Primary Long-term (current) use of anticoagulant s documented in this encounter
--- OUTSIDE RECORDS SUMMARY | 2022-06-15 13:32 | XMS_ITS | Encounter Summary ---
:1945 Author Organization [place] Address [address] [place] [address] Care Team Providers Name Role Phone Unavailable Primary Care Provider Unavailable Reason for Visit Reason Onset Date Comments Refill Request 05/09/[address] [facility] Velma Encounter Details Date Type Department Care Team Description 05/09/2005 Refill [facility] Mari Beard MD [facility] 1440 [facility] JOYCE Carreon) [place] [phone] [address] [phone] [place] [address] (Wo rk) Social History Tobacco [...] Notes Telephone Encounter - Susie Murphy - 05/09/2005 10:46 AM CDT Last filled 04-07-05. Pt has been in to office 03-21. Filled per nurse protocol. \Susie Murphy RN documented in this encounter Plan of Treatment Upcoming Encounters Date Type Specialty Care Team Description 11/15/2022 Virtual Visit Pharm D Haylie Cheung, [facility] [address] [place] [address] (Wo rk) 11/15/2022 Virtual Visit IM[place] [address] [place] [address] [place] [address] (Wo rk) 03/03/2023 Virtual Visit Neurology Erlinda Barber MD [address] [facility] [address] [place] [address] (Wo rk) documented as of this encounter Visit Diagnoses Not on filedocumented in this encounter
--- OUTSIDE RECORDS SUMMARY | 2022-06-15 13:32 | XMS_ITS | Encounter Summary ---
:1945 Author Organization [facility] Address [address] [place] [address] Care Team Providers Name Role Phone Unavailable Primary Care Provider Unavailable Reason for Visit Reason Comments Anticoagulation Encounter Details Date Type Department Care Team Description 11/03/2005 Office Visit [facility] Eag an AFTERCARE JAIL 14[address] [employer] ANTICOAG USE (Primary Dx) [place] [id number] Social [...] this encounter Progress Notes Qing Guy - 11/03/2005 5:17 PM CDT ANTICOAGULATION FOLLOW-UP CLINIC VISIT Patient Name: Charlette Brush Date: 11/03/2005 SUBJECTIVE: Bleeding Signs/Symptoms: None Thromboembolic Signs/Symptoms: None Medication Changes: Has had some left hip pain and did take up to 5 tabs of Tylenol a day. Did not take any yesterday. Dietary Changes: Has been eating less salads Bacterial/Viral Infection: NO Missed Coumadin Doses: None Other Concerns: NO ASSESSMENT/PLAN: See: ANTICOAGULATION QIC flow sheet. ANTICOAGULATION CLINIC Qing Guy RN documented in this encounter Nursing Notes 11/03/2005 3:30 PM CDT >> QING GUY 11/03/2005 5:19 pm Charlette Brush presents for INR. Estimated Body mass index is 59.65 kg/(m^2) as calculated from: Height of 5' 6.25 (1.683 m) as of 09/05/05 Weight of 372 lbs 8.0 oz (168.965 kg) as of 09/05/05 Qing Guy RN documented in this encounter Plan of Treatment Upcoming Encounters Date Type Specialty Care Team Description 11/15/2022 Virtual Visit Pharm D Haylie Cheung, [facility] 14[address] [facility] [place] [address] (Lena max) 11/15/2022 Virtual Visit [place] [address] [place] [address] [place] [address] (Lena max) 03/03/2023 Virtual Visit Neurology Erlinda Barber MD 420 [facility] 295 [place] [address] (Lena max) documented as of this encounter Procedures Procedure Name Priority Date/Time Associated Diagnosis Comme nts HCL INR POCT Routine 11/03/2005 Aftercare Metal Sprayer Protective Coating Results for this Anticoag Use procedure are i n the results section . documented in this encounter Results INR POINT OF CARE (11/03/2005) P athologist Signature INR Point of 3.4 [facility] Mari Esparza MD LABORATORY Performing Organization Address City/State/ZIP Code Phon e Number [facility] documented in this encounter Visit Diagnoses Diagnosis nursing home (current) use of anticoagulant s - Primary Long-term (current) use of anticoagulant s documented in this encounter
--- OUTSIDE RECORDS SUMMARY | 2022-06-15 13:32 | XMS_ITS | Encounter Summary ---
:1945 Author Organization [place] Address [address] [place] [address] Care Team Providers Name Role Phone Unavailable Primary Care Provider Unavailable Reason for Visit Reason Onset Date Comments Other 08/11/2005 nasal juan Encounter Details Date Type Department Care Team Description 08/11/2005 Telephone [facility] Collette Esparza, Mari Sifuentes MD Other (nasal juan) [address] [facility] [place] [phone] [address] [phone] [place] [address] (Wo rk) Social History Tobacco [...] Notes Telephone Encounter - Susie Murphy - 08/11/2005 11:53 AM CST Pt has cold with runny nose. On zyrtec D bid already. Pt has hx of HTN. Did not recommend anything else. Suggested she call for appt if not improving. Did not want appt at this time. Susie Murphy RN L BLOCKER AND SAWYER documented in this encounter Plan of Treatment Upcoming Encounters Date Type Specialty Care Team Description 11/15/2022 Virtual Visit Pharm D Haylie Cheung, [facility] 14[address] [facility] [place] [address] (Wo rk) 11/15/2022 Virtual Visit [place] [address] [place] [address] [place] [address] (Wo rk) 03/03/2023 Virtual Visit Neurology Erlinda Barber MD 420 [facility] 295 [place] [address] (Wo rk) documented as of this encounter Visit Diagnoses Not on filedocumented in this encounter
--- OUTSIDE RECORDS SUMMARY | 2022-06-15 13:32 | XMS_ITS | Encounter Summary ---
:1945 Author Organization [place] Address [address] [place] [address] Care Team Providers Name Role Phone Unavailable Primary Care Provider Unavailable Reason for Visit Reason Comments Anticoagulation Encounter Details Date Type Department Care Team Description 07/29/2005 Office Visit [facility] Eag an AFTERCARE CLAIMS CORRESPONDENCE CLERK 14[address] [employer] ANTICOAG USE (Primary Dx) [place] [id number] Social [...] this encounter Progress Notes Qing Guy - 07/29/2005 4:26 PM CST ANTICOAGULATION FOLLOW-UP CLINIC VISIT Patient Name: Charlette Brush Date: 07/29/2005 SUBJECTIVE: Bleeding Signs/Symptoms: None Thromboembolic Signs/Symptoms: None Medication Changes: NO Dietary Changes: She has been eating less green vegetables lately Bacterial/Viral Infection: NO Missed Coumadin Doses: None Other Concerns: NO ASSESSMENT/PLAN: See: ANTICOAGULATION QIC flow sheet. EA ANTICOAGULATION CLINIC Qing Guy RN CHAIN PULLER documented in this encounter Nursing Notes 07/29/2005 3:45 PM CST >> QING GUY 07/29/2005 4:28 pm Charlette Brush presents for INR. Initial [...] Haylie Gonzalez, [facility] [address] [facility] [place] [address] (Lena max) 11/15/2022 Virtual Visit IM/Peds Yane Barraza MD [address] [facility] [place] [phone] (Lena max) 03/03/2023 Virtual Visit Neurology Erlinda Barber MD 420 [facility] 295 [place] [address] (Wo winter) documented as of this encounter Procedures Procedure Name Priority Date/Time Associated Diagnosis Comme nts HCL INR POCT Routine 07/29/2005 Aftercare Residential Results for this Anticoag Use procedure are i n the results section . documented in this encounter Results INR POINT OF CARE (07/29/2005) P athologist Signature INR Point of 3.2 [facility] Care [facility] Mari Esparza MD LABORATORY Performing Organization Address City/State/ZIP Code Phon e Number [facility] documented in this encounter Visit Diagnoses Diagnosis [facility] (current) use of anticoagulant s - Primary Long-term (current) use of anticoagulant s documented in this encounter
--- OUTSIDE RECORDS SUMMARY | 2022-06-15 13:32 | XMS_ITS | Encounter Summary ---
:1945 Author Organization [facility] Address [address] [place] [address] Care Team Providers Name Role Phone Unavailable Primary Care Provider Unavailable Reason for Visit Reason Comments Anticoagulation Encounter Details Date Type Department Care Team Description 09/09/2005 Office Visit [facility] Eag an AFTERCARE USP 1440 [employer] ANTICOAG USE (Primary Dx) [place] [id number] Social [...] this encounter Progress Notes Qing Guy - 09/09/2005 4:23 PM CST ANTICOAGULATION FOLLOW-UP CLINIC VISIT Patient Name: Charlette Brush Date: 09/09/2005 SUBJECTIVE: Bleeding Signs/Symptoms: None Thromboembolic Signs/Symptoms: None Medication Changes: NO Dietary Changes: NO Bacterial/Viral Infection: NO Missed Coumadin Doses: None Other Concerns: NO ASSESSMENT/PLAN: See: ANTICOAGULATION QIC flow sheet. EA ANTICOAGULATION CLINIC Qing Guy RN ALT RAKER documented in this encounter Nursing Notes 09/09/2005 4:00 PM CST >> QING GUY 09/09/2005 4:30 pm Charlette Velma Gosevennithin presents for INR. Estimated Body mass index is 59.65 kg/(m^2) as calculated from: Height of 5' 6.25 (1.683 m) as of 09/05/05 Weight of 372 lbs 8.0 oz (168.965 kg) as of 09/05/05 Qing Guy RN documented in this encounter Plan of Treatment Upcoming Encounters Date Type Specialty Care Team Description 11/15/2022 Virtual Visit Pharm Haylie Gonzalez, [facility] 14[address] [facility] [place] [place] [address] (Lena max) 11/15/2022 Virtual Visit IM/Peds Yane Barraza MD 3305 [facility] [place] [address] (Lena max) 03/03/2023 Virtual Visit Neurology Erlinda Barber MD 420 [facility] 295 [place], [place] [phone] (Lena max) documented as of this encounter Procedures Procedure Name Priority Date/Time Associated Diagnosis Comme nts HCL INR POCT Routine 09/09/2005 Aftercare Medical Lab Assistant Results for this Anticoag Use procedure are i n the results section . documented in this encounter Results INR POINT OF CARE (09/09/2005) P athologist Signature INR Point of 2.8 [facility] Care LAB Mari Esparza MD LABORATORY Performing Organization Address City/State/ZIP Code Phon e Number [facility] documented in this encounter Visit Diagnoses Diagnosis care home (current) use of anticoagulant s - Primary Long-term (current) use of anticoagulant s documented in this encounter
--- OUTSIDE RECORDS SUMMARY | 2022-06-15 13:32 | XMS_ITS | Encounter Summary ---
:1945 Author Organization [facility] Address [address] [place] [address] Care Team Providers Name Role Phone Unavailable Primary Care Provider Unavailable Reason for Visit Reason Onset Date Comments Refill Request 01/02/2006 cozaar and triamtere ne/hctz Encounter Details Date Type Department Care Team Description 01/02/2006 Refill [facility] Mari Beard MD Refill Request (cozaar [address] [facility] JOYCE HUTCHINSON and triamterene/hctz) [place] [phone] [address] [phone] [place] [address] (Wo rk) Social History Tobacco [...] Notes Telephone Encounter - Susie Murphy - 01/02/2006 11:04 AM CDT Last filled 12-03-05. OV, labs -, repeat BP 10-07-05. Filled per nurse protocol until 08-23. Susie Murphy RN documented in this encounter Plan of Treatment Upcoming Encounters Date Type Specialty Care Team Description 11/15/2022 Virtual Visit Pharm D Haylie Cheung, [facility] 1440 [facility] [place] [address] (Wo rk) 11/15/2022 Virtual Visit IM/Peds Yane Barraza MD 3305 [facility] [place] [phone] (Wo rk) 03/03/2023 Virtual Visit Neurology Erlinda Barber MD 420 [facility] 295 [place] [address] (Wo rk) documented as of this encounter Visit Diagnoses Diagnosis Essential hypertension, benign documented in this encounter
--- OUTSIDE RECORDS SUMMARY | 2022-06-15 13:32 | XMS_ITS | Encounter Summary ---
:1945 Author Organization [place] Address [address] [place] [address] Care Team Providers Name Role Phone Unavailable Primary Care Provider Unavailable Reason for Visit Reason Comments Anticoagulation Flu Shot Encounter Details Date Type Department Care Team Description 05/13/2005 Office Visit [facility] Eag an PULM EMBOLISM/INFARCT NOS; 1440 [facility] ANTICOAG USE; [place] [phone] VACCINE FOR INFLUENZA [phone] Social History Tobacco Use Types Packs/Day Years [...] Sign Reading Time Taken Comments Blood Pressure 130/84 05/13/2005 3:30 PM CDT Pulse - - Temperature - - Respiratory Rate - - Oxygen Saturation - - Inhaled Oxygen Concentration - - Weight 162.9 kg (359 lb 3.2 oz) 05/13/2005 3:30 PM CDT Height - - Body Mass Index 55.43 04/15/2005 8:15 AM CDT documented in this encounter Progress Notes Qing Guy - 05/13/2005 4:58 PM CDT ANTICOAGULATION FOLLOW-UP CLINIC VISIT Patient Name: Charlette Brush Date: 05/13/2005 SUBJECTIVE: Bleeding Signs/Symptoms: None Thromboembolic Signs/Symptoms: None Medication Changes: NO Dietary Changes: NO Bacterial/Viral Infection: NO Missed Coumadin Doses: None Other Concerns: flu shot and pneumonia shot given today ASSESSMENT/PLAN: See: ANTICOAGULATION QIC flow sheet. EA ANTICOAGULATION CLINIC Qing Guy RN documented in this encounter Nursing Notes 05/13/2005 3:30 PM CDT >> QING GUY 05/13/2005 5:03 pm Charlette Brush presents for INR, flu shot, pnuemonia shot. Flu questionaire: A. Any history of hypersensitivity (allergy) to chicken, chicken eggs, chicken feathers, dander? NO B. Have you ever been paralyzed by Guillan-Lincoln Syndrome? NO C. Are you ill or have a fever? NO D. Any allergy to thimerosal (contact lens solution) or merthiolate? NO E. ? NO F. Any history of adverse reaction to a previous influenza vaccine? NO Flu injection given. See immunization record. Initial BP 130/84 Wt 359 lbs 3.2 oz (162.9kg) LMP Postmenopausal Estimated Body Mass Index is 55.40 kg/(m^2) as calculated from: Height of 5' 7.5 (1.715m) as of 04/15/05 Weight of 359 lbs 3.2 oz (162.932 kg) as of this encounter. BP completed using cuff size: X-large Qing Guy RN documented in this encounter Plan of Treatment Upcoming Encounters Date Type Specialty Care Team Description 11/15/2022 Virtual Visit Pharm Haylie Gonzalez, [facility] [address] [facility] [address] [place], [place] [phone] (Wo rk) 11/15/2022 Virtual Visit IM/Peds Yane Barraza MD [address] [facility] [place] [address] (Wo rk) 03/03/2023 Virtual Visit Neurology Erlinda Barber MD 420 [facility] 295 [place] [address] (Wo rk) documented as of this encounter Procedures Procedure Name Priority Date/Time Associated Diagnosis Comme nts HCL INR POCT Routine 05/13/2005 Aftercare Detention Results for this Anticoag Use procedure are i n the results section . documented in this encounter Results INR POINT OF CARE (05/13/2005) P athologist Signature INR Point of 2.4 [facility] Care LAB Mari Esparza MD LABORATORY Performing Organization Address City/State/ZIP Code Phon e Number [facility] documented in this encounter Visit Diagnoses Diagnosis Other pulmonary embolism and infarction utilization management um nurse (current) use of anticoagulant s Long-term (current) use of anticoagulant s Need for prophylactic vaccination and in oculation against influenza documented in this encounter
--- OUTSIDE RECORDS SUMMARY | 2022-06-15 13:32 | XMS_ITS | Encounter Summary ---
:1945 Author Organization [facility] Address [address] [place] [address] Care Team Providers Name Role Phone Unavailable Primary Care Provider Unavailable Reason for Visit Reason Comments Anticoagulation Encounter Details Date Type Department Care Team Description 02/21/2006 Office Visit [facility] Eag an AFTERCARE RESIDENTIAL 1440 [email or web address] ANTICOAG USE (Primary Dx) [place] [id number] Social [...] - Inhaled Oxygen Concentration - - Weight 170.4 kg (375 lb 9.6 oz) 02/21/2006 3:45 PM CDT Height - - Body Mass Index 59.72 02/01/2006 11:45 AM CDT documented in this encounter Progress Notes Ayanna Reyes - 02/21/2006 4:11 PM CDT ANTICOAGULATION FOLLOW-UP CLINIC VISIT Patient Name: Charlette Brush Date: 02/21/2006 SUBJECTIVE: Bleeding Signs/Symptoms: None Thromboembolic Signs/Symptoms: None Medication Changes: No Dietary Changes: No Bacterial/Viral Infection: No Missed Coumadin Doses: None Other Concerns: No ASSESSMENT/PLAN: See: ANTICOAGULATION QIC flow sheet. EA ANTICOAGULATION CLINIC Prasanth Reyes RN documented in this encounter Nursing Notes 02/21/2006 3:45 PM CDT >> AYANNA REYES 02/21/2006 4:11 pm Charlette Brush presents for INR Estimated Body mass index is 59.72 kg/(m^2) as calculated from: Height of 5' 6.5 (1.689 m) as of 02/01/06 Weight of 375 lbs 9.6 oz (170.371 kg) as of this encounter Prasanth Reyes RN documented in this encounter Plan of Treatment Upcoming Encounters Date Type Specialty Care Team Description 11/15/2022 Virtual Visit Pharm D Haylie Cheung, [facility] [address] [facility] [address] [place] [phone] (Lena max) 11/15/2022 Virtual Visit IM/Peds Yane Barraza MD [address] [place] [address] [phone] (Lena max) 03/03/2023 Virtual Visit Neurology Erlinda Barber MD 420 [facility] 295 [place], [place] [phone] (Lena max) documented as of this encounter Procedures Procedure Name Priority Date/Time Associated Diagnosis Comme nts HCL INR POCT Routine 02/21/2006 Aftercare Director Of Retail Results for this Anticoag Use procedure are i n the results section . documented in this encounter Results INR POINT OF CARE (02/21/2006) P athologist Signature INR Point of 3.1 [facility] Care LAB Mari Esparza MD LABORATORY Performing Organization Address City/State/ZIP Code Phon e Number [facility] LAB documented in this encounter Visit Diagnoses Diagnosis jail (current) use of anticoagulant s - Primary Long-term (current) use of anticoagulant s documented in this encounter
--- OUTSIDE RECORDS SUMMARY | 2022-06-15 13:32 | XMS_ITS | Encounter Summary ---
:1945 Author Organization [place] Address [address] [place] [address] Care Team Providers Name Role Phone Unavailable Primary Care Provider Unavailable Reason for Referral - Closed Specialty Diagnoses / Procedures Referred By Contact Refer red To Contact Diagnoses Plantar fascial fibromatosis Leonardo Burnham DPM [address] [address] Referral ID Status Reason Start Date Expiration Date Visits Requ ested Visits Authorized [id number] Closed 02/01/2006 07/16/2011 1 1 Reason for Visit Reason Comments Pain rt foot Encounter Details Date Type Department Care Team Description 02/01/2006 Office Visit [facility] Leonardo Burnham PLANTAR FIBROMATOSIS (Primary Dx); Yarelis Gonzalez DPM OTHER LYMPHEDEMA [address] [place] [phone] E [phone] [facility] 100 [place], [place] [address] Social History Tobacco Use Types Packs/Day Years [...] Sign Reading Time Taken Comments Blood Pressure 118/72 02/01/2006 11:45 AM CDT Pulse - - Temperature - - Respiratory Rate - - Oxygen Saturation - - Inhaled Oxygen Concentration - - Weight 169.2 kg (373 lb) 02/01/2006 11:45 AM CDT Height 168.9 cm (5' 6.5) 02/01/2006 11:45 AM CDT Body Mass Index 59.3 02/01/2006 11:45 AM CDT documented in this encounter Progress Notes Leonardo Burnham - 02/06/2006 11:51 AM CDT Subjective: Patient is seen today as a new pt self referral with a 4-6 month hx of rt heel pain. Most painful upon rising in a.m. or after prolonged sitting. Denies history of trauma. Has tried changing shoewear, OTC inserts, and NSAIDS without much success. Hx of lymphedema PMH, meds, all, PSH, PFH, and soc hx were reviewed Works in [employer] ROS: No hx of wound healing problems, + coumadin Objective: Pulses are palpable +2/4 DP & PT bilateral. Sensation to light touch is intact. Muscle strength and ROM is within normal limits. No sign of ulceration, infection, or drainage noted. Upon weightbearing there is a decrease in the medial longitudinal arch. Pain upon palpation to the medial slip of the plantar fascia and medial calcaneal tubercle rt. Assessment: Plantar Fasciitis rt Lymphedema Abrasion rt heel Plan: Discussed etiology and treatment options with the patient. Recommended modifying activities, supportive shoes, ice, stretching, and not going barefoot. Pt has orthotics and would suggest PT. F/U 4-6 wks. documented in this encounter Nursing Notes 02/01/2006 11:45 AM CDT >> LEYLA ROTH 02/01/2006 11:50 am Charlette Brush presents for a consult regarding rt foot pain. Pt has been wearing orthotics and she says it makes the back of her foot rub against shoes. Initial BP 118/72 Ht 5' 6.5 (1.69m) Wt 373 lbs (169.2kg) LMP Postmenopausal Body mass index is 59.31 kg/(m^2).. BP completed using cuff size: X-large Leyla Roth ANN MARIE documented in this encounter Plan of Treatment Upcoming Encounters Date Type Specialty Care Team Description 11/15/2022 Virtual Visit Pharm Haylie Gonzalez, [facility] 14[address] [facility] [place] [address] (Wo rk) 11/15/2022 Virtual Visit [place] [address] [place] [address] [place] [address] (Wo winter) 03/03/2023 Virtual Visit Neurology Erlinda Barber MD 420 [facility] 295 [place] [address] (Wo rk) documented as of this encounter Visit Diagnoses Diagnosis Plantar fascial fibromatosis - Primary Other lymphedema documented in this encounter
--- OUTSIDE RECORDS SUMMARY | 2022-06-15 13:32 | XMS_ITS | Encounter Summary ---
:1945 Author Organization [place] Address [address] [place] [address] Care Team Providers Name Role Phone Unavailable Primary Care Provider Unavailable Reason for Visit Reason Comments Anticoagulation Encounter Details Date Type Department Care Team Description 12/15/2005 Office Visit [facility] Eag an AFTERCARE VICE PRESIDENT REGULATORY 14[address] [employer] ANTICOAG USE (Primary Dx) [place] [phone] [...] - Inhaled Oxygen Concentration - - Weight 167 kg (368 lb 3.2 oz) 12/15/2005 3:30 PM CDT Height - - Body Mass Index 58.98 09/05/2005 10:45 AM PINMAKER documented in this encounter Progress Notes Qing Guy - 12/15/2005 3:59 PM CDT ANTICOAGULATION FOLLOW-UP CLINIC VISIT Patient Name: Charlette Brush Date: 12/15/2005 SUBJECTIVE: Bleeding Signs/Symptoms: None Thromboembolic Signs/Symptoms: None Medication Changes: NO Dietary Changes: NO Bacterial/Viral Infection: NO Missed Coumadin Doses: None Other Concerns: NO ASSESSMENT/PLAN: See: ANTICOAGULATION QIC flow sheet. EA ANTICOAGULATION CLINIC Qing Guy RN documented in this encounter Nursing Notes 12/15/2005 3:30 PM CDT >> QING GUY 12/15/2005 3:58 pm Charlette Brush presents for INR. Estimated Body mass index is 58.96 kg/(m^2) as calculated from: Height of 5' 6.25 (1.683 m) as of 09/05/05 Weight of 368 lbs 3.2 oz (167.014 kg) as of this encounter Qing Guy RN documented in this encounter Plan of Treatment Upcoming Encounters Date Type Specialty Care Team Description 11/15/2022 Virtual Visit Pharm Haylie Gonzalez, [facility] [address] [facility] [place] [address] (Lena max) 11/15/2022 Virtual Visit [place] [address] [place] [address] [place] [phone] (Lena max) 03/03/2023 Virtual Visit Neurology Erlinda Barber MD 420 [facility] 295 [place], [place] [address] (Lena max) documented as of this encounter Procedures Procedure Name Priority Date/Time Associated Diagnosis Comme nts HCL INR POCT Routine 12/15/2005 Aftercare Custodial Results for this Anticoag Use procedure are i n the results section . documented in this encounter Results INR POINT OF CARE (12/15/2005) P athologist Signature INR Point of 2.6 MISYS BILLING Care LAB Mari Esparza MD LABORATORY Performing Organization Address City/State/ZIP Code Phon e Number MISYS BILLING LAB documented in this encounter Visit Diagnoses Diagnosis custodial (current) use of anticoagulant s - Primary Long-term (current) use of anticoagulant s documented in this encounter
--- OUTSIDE RECORDS SUMMARY | 2022-06-15 13:32 | XMS_ITS | Encounter Summary ---
:1945 Author Organization [facility] Address [address] [place] [address] Care Team Providers Name Role Phone Unavailable Primary Care Provider Unavailable Reason for Visit Reason Comments Anticoagulation Encounter Details Date Type Department Care Team Description 01/19/2006 Office Visit [facility] (Former[facility]) Eag an AFTERCARE PC SUPPORT SPECIALIST [address] ANTICOAG USE (Primary Dx) [place] [phone] Social [...] - - Weight 169.2 kg (373 lb) 01/19/2006 1:45 PM CDT Height - - Body Mass Index 59.75 09/05/2005 10:45 AM CORPORATE DEVELOPMENT INTERN documented in this encounter Progress Notes Qing Guy - 01/19/2006 6:28 PM CDT ANTICOAGULATION FOLLOW-UP CLINIC VISIT Patient Name: Charlette Brush Date: 01/19/2006 SUBJECTIVE: Bleeding Signs/Symptoms: None Thromboembolic Signs/Symptoms: None Medication Changes: NO Dietary Changes: NO Bacterial/Viral Infection: NO Missed Coumadin Doses: None Other Concerns: NO ASSESSMENT/PLAN: See: ANTICOAGULATION QIC flow sheet. [facility] ANTICOAGULATION CLINIC Qing Guy RN documented in this encounter Nursing Notes 01/19/2006 1:45 PM CDT >> QING GUY 01/19/2006 3:02 pm Charlette Brush presents for INR. Estimated Body mass index is 59.73 kg/(m^2) as calculated from: Height of 5' 6.25 (1.683 m) as of 09/05/05 Weight of 373 lbs (169.192 kg) as of this encounter Qing Guy RN documented in this encounter Plan of Treatment Upcoming Encounters Date Type Specialty Care Team Description 11/15/2022 Virtual Visit Pharm Haylie Gonzalez, [facility] [address] [facility] [address] [place] [phone] (Lean max) 11/15/2022 Virtual Visit IM/Peds Yane Barraza MD [address] [facility] [place] [phone] (Lena max) 03/03/2023 Virtual Visit Neurology Erlinda Barber MD [address] [facility] [address] [place] [address] (Lena max) documented as of this encounter Procedures Procedure Name Priority Date/Time Associated Diagnosis Comme nts HCL INR POCT Routine 01/19/2006 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
--- OUTSIDE RECORDS SUMMARY | 2022-06-15 13:32 | XMS_ITS | Encounter Summary ---
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 ASSESSMENT/PLAN: See: ANTICOAGULATION QIC flow sheet. ANTICOAGULATION CLINIC Qing Guy RN documented in this encounter Nursing Notes 01/05/2006 3:15 PM CDT >> QING GUY 01/05/2006 3:38 pm Charlette Brush presents for INR. Estimated Body mass index is 59.76 kg/(m^2) as calculated from: Height of 5' 6.25 (1.683 m) as of 09/05/05 Weight of 373 lbs 3.2 oz (169.282 kg) as of this encounter Qing Guy RN documented in this encounter Plan of Treatment Upcoming Encounters Date Type Specialty Care Team Description 11/15/2022 Virtual Visit Pharm D Haylie Cheung, [facility] [address] [place] [address] (Lena max) 11/15/2022 Virtual Visit [place] [address] [place] [address] [place] [phone] (Lena max) 03/03/2023 Virtual Visit Neurology Erlinda Barber MD [address] [facility] [address] [place], [place] [phone] (Lena max) documented as of this encounter Procedures Procedure Name Priority Date/Time Associated Diagnosis Comme nts HCL INR POCT Routine 01/05/2006 Aftercare Skilled Nursing Results for this Anticoag Use procedure are i n the results section . 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
--- OUTSIDE RECORDS SUMMARY | 2022-06-15 13:32 | XMS_ITS | Encounter Summary ---
:1945 Author Organization [facility] Address [address] [place] [address] Care Team Providers Name Role Phone Unavailable Primary Care Provider Unavailable Reason for Visit Reason Comments Anticoagulation Encounter Details Date Type Department Care Team Description 07/01/2005 Office Visit [facility] Eag an AFTERCARE CUSTODIAL [address] [employer] ANTICOAG USE (Primary Dx) [place] [id number] Social [...] this encounter Progress Notes Qing Guy - 07/01/2005 4:56 PM CST ANTICOAGULATION FOLLOW-UP CLINIC VISIT Patient Name: Charlette Brush Date: 07/01/2005 SUBJECTIVE: Bleeding Signs/Symptoms: None Thromboembolic Signs/Symptoms: None Medication Changes: NO Dietary Changes: NO Bacterial/Viral Infection: NO Missed Coumadin Doses: None Other Concerns: NO ASSESSMENT/PLAN: See: ANTICOAGULATION QIC flow sheet. EA ANTICOAGULATION CLINIC Qing Guy RN LEAD YARDER documented in this encounter Nursing Notes 07/01/2005 4:00 PM CST >> QING GUY 07/01/2005 5:00 pm Charlette Brush presents for INR. 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 documented in this encounter Results INR POINT OF CARE (07/01/2005) P athologist Signature INR Point of 2.3 [facility] Care LAB Mari Esparza MD LABORATORY Performing Organization Address City/State/ZIP Code Phon e Number [facility] documented in this encounter Visit Diagnoses Diagnosis director long term care (current) use of anticoagulant s - Primary Long-term (current) use of anticoagulant s documented in this encounter
--- OUTSIDE RECORDS SUMMARY | 2022-06-15 13:32 | XMS_ITS | Encounter Summary ---
:1945 Author Organization [facility] Address [address] [place] [address] Care Team Providers Name Role Phone Unavailable Primary Care Provider Unavailable Reason for Visit Reason Comments Physical Encounter Details Date Type Department Care Team Description 09/05/2005 Office Visit [facility] ([facility]) Xu Esparza ROUTI NE MEDICAL EXAM (Primary Dx); [place] PATEL BENIGN HYPERTENSION; [address] [place] JOYCE DERMATITIS NOS; [place] [phone] JASPER LATERAL EPICONDYLITIS [phone] [facility] [place] [phone] Social History Tobacco Use Types Packs/Day Years [...] Sign Reading Time Taken Comments Blood Pressure 133/90 09/05/2005 10:45 AM CORN PRESS OPERATOR Pulse 80 09/05/2005 10:45 AM CORN PRESS OPERATOR Temperature - - Respiratory Rate - - Oxygen Saturation - - Inhaled Oxygen Concentration - - Weight 169 kg (372 lb 8 oz) 09/05/2005 10:45 AM CORN PRESS OPERATOR Height 168.3 cm (5' 6.25) 09/05/2005 10:45 AM CORN PRESS OPERATOR Body Mass Index 59.67 09/05/2005 10:45 AM CORN PRESS OPERATOR documented in this encounter Progress Notes Xu Esparza - 09/14/2005 4:54 PM CST SUBJECTIVE: CC:Marzena Brush, a 60 year old female, presents for routine health maintenance exam. LMP: No LMP date recorded. Reason: Postmenopausal. Contraception: none HPI: c/o pain in right arm for a few weeks now. No significant repetitive motion issues. Does not knit or mery. Pain over lower forearm from the elbow down. No wrist pain. NO swelling. No rash over her arm Patient Active Problem List Diagnoses Code ??? BENIGN HYPERTENSION 401.1 ??? PULM EMBOLISM/INFARCT NOS 415.19 ??? EDEMA 782.3 ??? MORBID OBESITY 278.01 ??? OTHER LYMPHEDEMA 457.1 ? ? OBSTRUCTIVE SLEEP APNEA, ADULT & PED 327.23 Past Medical and Surgical Histories are reviewed and updated as noted in the Histories database. There are NO CHANGES Current outpatient prescriptions Medication Sig ??? ZYRTEC 5 MG OR TABS 1 TABLET BID ??? COUMADIN 2.5 MG OR TABS as directed ??? ZYRTEC-D 5-120 MG OR TB12 1 TABLET TWICE DAILY NEEDED ??? ACETAMINOPHEN 500 MG OR TABS 1 tab qd ??? ATENOLOL 25 MG OR TABS 1 tab po BID ??? TRIAMTERENE-HCTZ 37.5-25 MG OR CAPS 1 CAPSULE DAILY ??? COZAAR 50 MG OR TABS 1 TABLET DAILY ??? HYDROCORTISONE (TOPICAL) 2.5 % EX OINT apply as needed ??? TOPICORT 0.05 % EX GEL apply 3 times daily as needed below knees ??? COUMADIN 10 MG OR TABS 10 mg 4 days/wk 12.5 mg 3 days/wk or as directed ??? 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 Tobacco Use: Never ??? Alcohol Use: No ??? Drug Use: No ??? Sexually Active: No Other Topics Concern ??? Not on file Social History Narrative ??? No narrative on file REVIEW OF SYSTEMS: CONSTITUTIONAL:NEGATIVE for fever, chills, change in weight INTEGUMENTARY/SKIN: dermatitis on her legs is stable EYES: NEGATIVE for vision changes or irritation ENT/MOUTH: NEGATIVE for ear, mouth and throat problems RESP:NEGATIVE for significant cough or SOB CV: NEGATIVE for chest pain, palpitations or peripheral edema GI: NEGATIVE for nausea, abdominal pain, heartburn, or change in bowel habits :NEGATIVE for dysuria, hematuria, abnormal menses, incontinence MUSCULOSKELETAL:arm pain as above NEURO: NEGATIVE for weakness, dizziness or paresthesias ENDOCRINE: NEGATIVE for temperature intolerance, skin/hair changes HEME/ALLERGY/IMMUNE: NEGATIVE for bleeding problems PSYCHIATRIC: NEGATIVE for changes in mood or affect EXAM: BP 133/90 Pulse 80 Ht 5' 6.25 (1.68m) Wt 372 lbs 8.0 oz (169.0kg) LMP Postmenopausal BMI = Body mass index is 59.65 kg/(m^2). GENERAL APPEARANCE:healthy,alert,no distress ORGAN EXAMS: EYES: [...] no bruits heard and no massespalpable : normal external genitalia, normal cervix and adnexa, no massess palpable MS: lymphedema bilateral LE, venous stasis dermatitis which has improved. Pain with resisted supination on right, pain over lateral epicondyle NEURO: Gait normal. Reflexes normal and symmetric. Sensation grossly WNL. PSYCH: NEGATIVE ASSESSMENT/PLAN: 60 year old health maintenance exam Cardiac Risks: HTN and Age > 45 (male) or >55 (female) Patient's Goal LDL = <130 Patient is screened for GC and Chlamydia: No V70.0 ROUTINE MEDICAL EXAM (primary encounter diagnosis) Note: Plan: OCCULT BLOOD, STOOL (1-3 SPEC), A THIN LAYER PAP SCREEN 401.1 BENIGN HYPERTENSION Note: not well controlled today Plan: A.M.A. COMPREHENSIVE MET.PANEL, A.M.A. LIPID PANEL Will stop the use of zyrtec D regularly, begin use of regular zyrtec and only D when needed. Recheck BP at next INR appt to see if it has improved. IF not then return to clinic to consider addition ofBP agent 692.9 DERMATITIS NOS Note: venous stasis dermatitis Plan: ZYRTEC 5 MG OR TABS Change to regular zyrtec, will keep BID as QD may make her drowsy 726.32 LATERAL EPICONDYLITIS Note: Plan: OFFICE/OUTPT VISIT,EST,LEVL III Exercises given, cannot take nsaid due to coumadin, offered referral to PT for iontophoresis and therapy, pt to consider if she wants to go to PT can refer at any time Discussed with pt breast self exam, mammography screening and adequate intake of calcium and vitaminD Recommended begin progressive daily aerobic exercise program, eat a low-fat, low-carb, high-fiber, high-protein diet, attempt to lose weight, reduce salt in diet and cooking, use calcium 1 gram daily with Vit D, continue current medications and return for routine annual chekcups I have discussed with patient the risks and benefits of medications, treatment options and modalities. I have instructed the patient to call or schedule a follow-up appointment if any problems occur or failure fo symptoms to improve. PRESS OPERATOR Jennifer Alicia - 09/05/2005 10:32 AM CST HEALTH CARE MAINTENANCE: Ever had an abnormal pap? Yes - date: 1991 Menses are every na days; lasting for na days. Flow is na. Menstrual Pain? na PMS symptoms? na Have you had a pneumonia shot? Yes - date: 05/13/05 How many dairy products do you eat daily? 3 Have you had an eye exam in the past year? YES Health Maintenance Reviewed: Health Maintenance Topic Date Due ??? Mammogram q 2 years 12/23/2006 ??? Pap q2 yr 11/03/2005 ??? Tetanus q10 yr 08/27/2014 SAFETY: ======= Do you exercise? YES If yes, how many times per week? 2 Do you feel safe in your relationship(s)? Not in a relationship Do you have a gun in your home? No Do you wear your seatbelt regularly? YES Do you use sunscreen? YES Are you fasting today? yes PRESS OPERATOR documented in this encounter Nursing Notes 09/05/2005 10:45 AM CST >> JENNIFER ALICIA 09/05/2005 10:32 am Marzena Brush presents for physical. Initial BP 133/90 Pulse 80 Ht 5' 6.25 (1.68m) Wt 372 lbs 8.0 oz (169.0kg) LMP Postmenopausal Body mass index is 59.65 kg/(m^2).. BP completed using cuff size: large documented in this encounter Plan of Treatment Upcoming Encounters Date Type Specialty Care Team Description 11/15/2022 Virtual Visit Haylie Wakefield, [facility] [address] [address] (Wo rk) 11/15/2022 Virtual Visit IM/Peds Yane Barraza MD [address] [facility] [place] [phone] (Wo rk) 03/03/2023 Virtual Visit Neurology Erlinda Barber MD [address] [address] [facility] [address] [place] [address] (Wo rk) documented as of this encounter Procedures Procedure Name Priority Date/Time Associated Diagnosis Comme nts HCL COMPREHENSIVE Routine 09/05/2005 11:49 Benign Hypertension Results for this METABOLIC PANEL AM CORN PRESS OPERATOR procedure ar e in the results section. CL AFF A.M.A. LIPID Routine 09/05/2005 11:49 Benign Hypertensi on Results for this PANEL AM CORN PRESS OPERATOR procedure are i n the results section. HCL PAP THIN LAYER Routine 09/05/2005 12:00 Routine Medical Ex am Results for this SCREEN AM CORN PRESS OPERATOR procedure are i n the results section. documented in this encounter Results (ABNORMAL) A.M.A. LIPID PANEL (09/05/2005 11:49 AM CORN PRESS OPERATOR) P athologist Signature Cholesterol 202 (H) 0 - 200 [facility] mg/dL CLINIC LAB Comment: LDL Cholesterol is the primary guide to therapy: LDL-cholesterol goal in high risk patients is <100 mg/dL and in very high risk patients is <70 mg/dL. The NCEP recommends further evaluation of: patients with cholesterol <200 mg/dL if additional risk factors are present, cholesterol >240 mg/dL, triglycerides >150 mg/dL, or HDL <40 mg/dL. Triglycerides 171 (H) 0 - 150 mg/dL [facility] CLINIC LAB HDL Cholesterol 52 50 - 110 mg/dL [facility] LDL Cholesterol Calculated 116 0 - 129 mg/dL [facility] Comment: LDL Cholesterol is the primary guide to therapy: LDL-cholesterol goal in high risk patients is <100 mg/dL and in very high risk patients is <70 mg/dL. VLDL-Cholesterol 34 (H) 0 - 30 mg/dL [facility] Cholesterol/HDL Ratio 3.9 0.0 - 5.0 [facility] Specimen Anatomical Collection Method Collection Time Receive d Time (Source) Location / / Volume Laterality 09/05/2005 11:49 09/05/2005 AM CORN PRESS OPERATOR 11:52 AM CORN PRESS OPERATOR Xu Esparza MD LABORATORY Performing Organization Address City/State/ZIP Code Phon e Number [facility] [place] [address] [place] [address] [phone] [facility] A.M.A. COMPREHENSIVE MET.PANEL (09/05/2005 11:49 AM CORN PRESS OPERATOR) athologist Signature Sodium 138 133 - 144 [facility] [place] mmol/L CLINIC LAB Potassium 3.9 3.4 - 5.3 [facility] [place] mmol/L CLINIC LAB Chloride 102 94 - 109 [facility] [place] mmol/L CLINIC LAB Carbon Dioxide 29 20 - 32 [facility] [place] mmol/L CLINIC LAB Anion Gap 8 6 - 17 [facility] [place] mmol/L CLINIC LAB Glucose 96 60 - 110 [facility] [place] mg/dL CLINIC LAB Urea Nitrogen 15 7 - 30 [facility] [place] mg/dL CLINIC LAB Creatinine 0.70 0.60 - [facility] [place] 1.30 mg/dL CLINIC LAB GFR Estimate >90 >60 [facility] [place] mL/min/1.7 CLINIC LAB m2 GFR Estimate If >90 >60 [facility] [place] Black mL/min/1.7 CLINIC LAB m2 Calcium 8.9 8.5 - 10.4 [facility] [place] mg/dL CLINIC LAB Bilirubin Total 0.5 0.2 - 1.3 [facility] [place] mg/dL CLINIC LAB Albumin 3.9 3.2 - 4.5 [facility] [place] g/dL CLINIC LAB Protein Total 7.7 6.0 - 8.2 [facility] [place] g/dL CLINIC LAB Alkaline 124 40 - 150 [facility] Phosphatase U/L CLINIC LAB ALT 19 0 - 50 U/L [facility] AST 27 0 - 45 U/L [facility] Specimen Anatomical Collection Method Collection Time Receive d Time (Source) Location / / Volume Laterality 09/05/2005 11:49 09/05/2005 AM CORN PRESS OPERATOR 11:52 AM CORN PRESS OPERATOR Xu Esparza MD LABORATORY Performing Organization Address City/State/ZIP Code Phon e Number [facility] [place] [address] [place] [address] [phone] [facility] A THIN LAYER PAP SCREEN (09/05/2005 12:00 AM CORN PRESS OPERATOR) Component Value Ref Test Analysis Performed At [facility] Range Method Time Signature PAP NIL COPATH Copath Report COPATH Patient Name: MARZENA BRUSH MR#: [id number] Specimen #: [id number] Collected: 09/05/2005 Received: 09/06/2005 Reported: 09/07/2005 09:12 Ordering Phy(s): XU ESPARZA SPECIMEN/STAIN PROCESS: Pap thin layer prep screening ([facility]) ? Pap-Cyto x 1, Reflex HPV x 1 SOURCE: Cervical, endocervical ---- Pap thin layer prep screening ([facility]) SPECIMEN ADEQUACY: Satisfactory for evaluation. -Transitional zone component present. CYTOLOGIC INTERPRETATION: Negative for Intraepithelial Lesion or Malignancy Electronically signed out by: MAREN Kelly (ASCP) [facility] CLINICAL HISTORY: Post Menopausal, Previous normal pap Date of Last Pap: 11-04-03, TESTING LAB LOCATION: [address] ??[id number] COLLECTION SITE: Client: ??[facility] Location: EA (R) Specimen (Source) Anatomical Collection Method Collection Time Re ceived Time Location / / Volume Laterality 09/05/2005 09/06/2005 9:28 AM CORN PRESS OPERATOR Xu Esparza MD LABORATORY Performing Organization Address City/State/ZIP Code Phon e Number COPATH documented in this encounter Visit Diagnoses Diagnosis Routine general medical examination at a health care facility - Primary Essential hypertension, benign Contact dermatitis and other eczema, due to unspecified cause Lateral epicondylitis of elbow Lateral epicondylitis of elbow documented in this encounter
--- OUTSIDE RECORDS SUMMARY | 2022-06-15 13:32 | XMS_ITS | Encounter Summary ---
:1945 Author Organization [facility] Address [address] [place] [address] Care Team Providers Name Role Phone Unavailable Primary Care Provider Unavailable Reason for Visit Reason Comments Anticoagulation Encounter Details Date Type Department Care Team Description 12/01/2005 Office Visit [facility] Eag an AFTERCARE [employer] CONSERVATION LABORER [address] [facility] ANTICOAG USE (Primary Dx) [place] [phone] [...] - - Weight 166.5 kg (367 lb) 12/01/2005 3:45 PM CDT Height - - Body Mass Index 58.79 09/05/2005 10:45 AM OPEN DEVELOPER OPERATOR documented in this encounter Progress Notes Qing Guy - 12/01/2005 4:50 PM CDT ANTICOAGULATION FOLLOW-UP CLINIC VISIT Patient Name: Charlette Brush Date: 12/01/2005 SUBJECTIVE: Bleeding Signs/Symptoms: None Thromboembolic Signs/Symptoms: None Medication Changes: NO Dietary Changes: Eating less vegetables Bacterial/Viral Infection: NO Missed Coumadin Doses: None Other Concerns: She is working 12 hour days and Saturdays. Her diet has changed and she is getting less exercise. She thinks she will be done doing these long hours in December. She will let us know. ASSESSMENT/PLAN: See: ANTICOAGULATION QIC flow sheet. EA ANTICOAGULATION CLINIC Qing Guy RN documented in this encounter Nursing Notes 12/01/2005 3:45 PM CDT >> QING GUY 12/01/2005 4:02 pm Charlette Brush presents for INR. Estimated [...] Haylie Gonzalez, [facility] [address] [facility] [place] [address] (Lena max) 11/15/2022 Virtual Visit IM/Peds Yane Barraza MD [address] [facility] [place] [address] (Lena max) 03/03/2023 Virtual Visit Neurology Erlinda Barber MD [address] [facility] [address] [place], [place] [address] (Lena max) documented as of this encounter Procedures Procedure Name Priority Date/Time Associated Diagnosis Comme nts HCL INR POCT Routine 12/01/2005 Aftercare [facility] Results for this Anticoag Use procedure are i n the results section . documented in this encounter Results INR POINT OF CARE (12/01/2005) P athologist Signature INR Point of 3.3 [facility] Care LAB Mari Esparza MD LABORATORY Performing Organization Address City/State/ZIP Code Phon e Number [facility] documented in this encounter Visit Diagnoses Diagnosis manager long term care (current) use of anticoagulant s - Primary Long-term (current) use of anticoagulant s documented in this encounter
--- OUTSIDE RECORDS SUMMARY | 2022-06-15 13:32 | XMS_ITS | Encounter Summary ---
:1945 Author Organization [facility] Address [address] [place] [address] Care Team Providers Name Role Phone Unavailable Primary Care Provider Unavailable Reason for Visit Reason Onset Date Comments Refill Request 12/05/2005 Syed Bui/H CTZ Encounter Details Date Type Department Care Team Description 12/05/2005 Refill [facility] Mari Beard MD Refill Request (Hao, [address] [employer] [place] [employer]/HCTZ) [place] [phone] [address] [phone] [place] [address] (Wo rk) Social History Tobacco [...] Notes Telephone Encounter - Radha Flower - 12/05/2005 1:06 PM CDT Last px 09/05/05. Note states pt should have her BP rechecked at INR visit for possible change in medication. Not done. Refilled for one month with note to have BP checked at INR visit. Ashli Flower RN documented in this encounter Plan of Treatment Upcoming Encounters Date Type Specialty Care Team Description 11/15/2022 Virtual Visit Pharm D Haylie Cheung, [facility] [address] [facility] [place] [address] (Lena max) 11/15/2022 Virtual Visit IM/Peds Yane Barraza MD [address] [facility] [place] [address] (Lena max) 03/03/2023 Virtual Visit Neurology Erlinda Barber MD [address] [facility] [address] [place] [address] (Lena max) documented as of this encounter Visit Diagnoses Diagnosis Essential hypertension, benign documented in this encounter
--- OUTSIDE RECORDS SUMMARY | 2022-06-15 13:32 | XMS_ITS | Encounter Summary ---
:1945 Author Organization [place] Address [address] [place] [address] Care Team Providers Name Role Phone Unavailable Primary Care Provider Unavailable Reason for Visit Reason Onset Date Comments Refill Request 06/17/2005 Warfarin Encounter Details Date Type Department Care Team Description 06/17/2005 Refill [facility] Collette Esparza, Mari Sifuentes MD Refill Request 14[address] [facility] JOYCE HUTCHINSON (Warfarin) [place] [phone] [address] [phone] [place] [address] (Wo rk) Social History Tobacco [...] Notes Telephone Encounter - Khadar Austineen - 06/17/2005 10:44 AM CST Med filled per standard nursing protocol; pt comes in for regular INR Clinic appts. Amari Austin RN COOK documented in this encounter Plan of Treatment Upcoming Encounters Date Type Specialty Care Team Description 11/15/2022 Virtual Visit Pharm D Haylie Cheung, [facility] [address] [facility] [address] (Wo rk) 11/15/2022 Virtual Visit IM/Peds Yane Barraza MD [address] 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
--- OUTSIDE RECORDS SUMMARY | 2022-06-15 13:32 | XMS_ITS | Encounter Summary ---
:1945 Author Organization [place] Address [address] [place] [address] Care Team Providers Name Role Phone Unavailable Primary Care Provider Unavailable Reason for Visit Reason Comments Anticoagulation Encounter Details Date Type Department Care Team Description 02/02/2006 Office Visit [facility] Eag an AFTERCARE BREWERY WORKER ANTICOAG USE (Primary Dx); [address] PULM EMBOLISM/INFARCT NOS; [place] [phone] [facility] ANTICOAG USE [phone] Social History Tobacco Use Types Packs/Day Years [...] - - Weight 169.2 kg (373 lb) 02/02/2006 3:45 PM CDT Height - - Body Mass Index 59.3 02/01/2006 11:45 AM CDT documented in this encounter Progress Notes Qing Guy - 02/02/2006 4:14 PM CDT ANTICOAGULATION FOLLOW-UP CLINIC VISIT Patient Name: Charlette Brush Date: 02/02/2006 SUBJECTIVE: Bleeding Signs/Symptoms: None Thromboembolic Signs/Symptoms: None Medication Changes: NO Dietary Changes: NO Bacterial/Viral Infection: NO Missed Coumadin Doses: None Other Concerns: NO ASSESSMENT/PLAN: See: ANTICOAGULATION QIC flow sheet. [facility] ANTICOAGULATION CLINIC Qing Guy RN documented in this encounter Nursing Notes 02/02/2006 3:45 PM CDT >> QING GUY 02/02/2006 4:16 pm Charlette Brush presents for INR. Estimated Body mass index is 59.31 kg/(m^2) as calculated from: Height of 5' 6.5 (1.689 m) as of 02/01/06 Weight of 373 lbs (169.192 kg) as of this encounter Qing Guy RN documented in this encounter Plan of Treatment Upcoming Encounters Date Type Specialty Care Team Description 11/15/2022 Virtual Visit Pharm D Haylie Cheung, [facility] [address] [facility] [place] [address] (Lena max) 11/15/2022 Virtual Visit [place] [address] [place] [address] [place] [phone] (Lena max) 03/03/2023 Virtual Visit Neurology Erlinda Barber MD [address] [facility] 295 [place], [place] [address] (Lena max) documented as of this encounter Procedures Procedure Name Priority Date/Time Associated Diagnosis Comme nts HCL INR POCT Routine 02/02/2006 Aftercare Bridal Sales Consultant Results for this Anticoag Use procedure are i n the results section . documented in this encounter Results INR POINT OF CARE (02/02/2006) P athologist Signature INR Point of 2.4 [facility] Mari Esparza MD LABORATORY Performing Organization Address City/State/ZIP Code Phon e Number [facility] documented in this encounter Visit Diagnoses Diagnosis FDC (current) use of anticoagulant s - Primary Long-term (current) use of anticoagulant s Other pulmonary embolism and infarction documented in this encounter
--- OUTSIDE RECORDS SUMMARY | 2022-06-15 13:33 | XMS_ITS | Encounter Summary ---
:1945 Author Organization [place] Address [address] [place] [address] Care Team Providers Name Role Phone Unavailable Primary Care Provider Unavailable Reason for Visit Reason Comments Blood Draw Encounter Details Date Type Department Care Team Description 09/24/2004 Orders Only [facility] Eag an AFTERCARE [facility] [address] [employer] ANTICOAG USE [place] [phone] Social History Tobacco Use [...] [place], [facility] [address] [facility] [place] [address] (Wo rk) 11/15/2022 Virtual Visit IM/Peds Yane Barraza MD [address] [facility] [place] [address] (Wo rk) 03/03/2023 Virtual Visit Neurology Erlinda Barber MD [address] [facility] 295 [place] [address] (Wo rk) documented as of this encounter Procedures Procedure Name Priority Date/Time Associated Comments Diagnosis CL AFF PROTHROMBIN Routine 09/24/2004 2:51 PM Aftercare Long T erm Results for this TIME ROTARY SOIL STABILIZER Anticoag Use procedure are i n the results section. documented in this encounter Results (ABNORMAL) PROTHROMBIN TIME (09/24/2004 2:51 PM ROTARY SOIL STABILIZER) P athologist Signature INR 2.60 (H) 0.86 - 1.14 [facility] Specimen Anatomical Collection Method Collection Time Receive d Time (Source) Location / / Volume Laterality 09/24/2004 2:51 PM 5 2:54 ROTARY SOIL STABILIZER PM ROTARY SOIL STABILIZER Mari Esparza MD LABORATORY Performing Organization Address City/State/ZIP Code Phon e Number [facility] [address] [facility] [place] [address] 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
--- OUTSIDE RECORDS SUMMARY | 2022-06-15 13:33 | XMS_ITS | Encounter Summary ---
:1945 Author Organization [place] Address [address] [place] [address] Care Team Providers Name Role Phone Unavailable Primary Care Provider Unavailable Reason for Visit Reason Comments Musculoskeletal Problem Encounter Details Date Type Department Care Team Description 12/14/2004 Office Visit [facility] Mari Esparza, KELLEE SOPATHY OF HIP (Primary Dx); Yarelis PATEL HEMATURIA; 14[address] [facility] SCREENING MAL NEOP-BREAST,UN SPEC [place] [phone] [place] [phone] [address] [place] [address] Social History Tobacco Use Types Packs/Day [...] Sign Reading Time Taken Comments Blood Pressure 148/90 12/14/2004 3:30 PM CDT Pulse 60 12/14/2004 3:30 PM CDT Temperature - - Respiratory Rate - - Oxygen Saturation - - Inhaled Oxygen Concentration - - Weight 159.8 kg (352 lb 3.2 oz) 12/14/2004 3:30 PM CDT Height - - Body Mass Index 55.99 08/27/2004 1:55 PM BETTING CLERKS documented in this encounter Progress Notes Isaias Mari Sifuentes - 12/14/2004 4:12 PM CDT SUBJECTIVE: Marzena is a 59 year old female with the chief complaint of hip pain. Patient first noted right hip. Pain onset is about many years prior to presentation but worse for the past few weeks. Pain is worsened since onset. Pain characterized as: aching and throbbing. Pain exacerbated by: use Pain relieved by: strech. Not daily. Trouble getting in and out of the car due to pain. Not continuous but comes in flares or episodes and is worse with getting to sitting and turning. took a step back and it hurt. Allergies As of Date: 12/14/2004 Noted Reaction PENICILLINS 07/25/2003 CEPHALEXIN 07/25/2003 LANOLIN 07/25/2003 NEOMYCIN 07/25/2003 Date Reviewed: 12/14/2004 Current outpatient prescriptions: ACETAMINOPHEN 500 MG OR TABS, 2 tab tid, Disp: , Rfl: ; TRIAMTERENE-HCTZ 37.5-25 MG OR CAPS, 1 CAPSULE DAILY, Disp: 34, Rfl: 11; COZAAR 50 MG OR TABS, 1 TABLET DAILY, Disp: 34, Rfl: 11; ATENOLOL 25 MG OR TABS, 1 TABLET DAILY, Disp: 34, Rfl: 11; COUMADIN 10 MG OR TABS,10 mg 3 days/wk 12.5 mg 4 days/wk, Disp: 34, Rfl: 5; ZYRTEC-D 5-120 MG OR TB12, 1 TABLET TWICE DAILYAS NEEDED, Disp: 60, Rfl: 5 COUMADIN 2.5 MG OR TABS, 10 mg 3 days/wk 12.5 mg 4 days/wk, Disp: 34, Rfl: 11; HYDROCORTISONE (TOPICAL) 2.5 % EX OINT, apply as needed, Disp: 28.35GM, Rfl: ; TOPICORT 0.05 % EX GEL, apply 3 times dailyas needed below knees, Disp: 60 GM, Rfl: ROS: CONSTITUTIONAL:NEGATIVE for fever, chills, change in weight EXAMINATION: BP 148/90 Pulse 60 Wt 352 lbs 3.2 oz (159.8kg) LMP Postmenopausal GENERAL APPEARANCE: healthy, alert and no distress EYES: Eyes grossly normal to inspection and conjunctivae and sclerae normal MS: LE edema 1+, walks without limp, exam is limited by morbid obesity Assessment/ Plan: X-RAY FINDINGS: no acute findings, questionable joint space narrowing 726.5 ENTHESOPATHY OF HIP (primary encounter diagnosis) Note: likley a mild bursitis or osteoarthritis Plan: X-RAY HIP UNI 2+ VW If pain persists will need to refer to ortho given pts size as eval is limited trial of nsaid 599.7 HEMATURIA Note: old issue, needs repeat UA, asymmptomatic Plan: UA MICRO IF POSITIVE recheck at upcoming inr visit V76.10 SCREENING MAL NEOP-BREAST,UNSPEC Note: Plan: MAMMOGRAM, SCREENING due for this routinely BP elevated this visit. Please recheck at upcoming INR visit if able Qing Guy - 12/14/2004 3:50 PM CDT Marzena Brush presents for right hip pain. No known injury. Painful the past 2 weeks. Pain has beenon and off since September. Initial BP 148/90 Pulse 60 Wt 352 lbs 3.2 oz (159.8kg) LMP Postmenopausal Estimated Body Mass Index is 56.00 kg/(m^2) as calculated from: Height of 5' 6.5 (1.689m) as of 08/27/04 Weight of 352 lbs 3.2 oz (159.757 kg) as of this encounter . BP completed using cuff size: large. Qing Guy RN documented in this encounter Plan of Treatment Upcoming Encounters Date Type Specialty Care Team Description 11/15/2022 Virtual Visit Haylie [place], [facility] [address] [facility] [place] [address] (Wo rk) 11/15/2022 Virtual Visit IM/Peds Yane Barraza MD [address] [facility] [place] [address] (Wo rk) 03/03/2023 Virtual Visit Neurology Erlinda Barber MD 420 [facility] 295 [place] [address] (Wo rk) documented as of this encounter Procedures Procedure Name Priority Date/Time Associated Diagnosis Comme nts C MAMMOGRAM, Routine 12/23/2004 3:20 PM Breast screening, Resu lts for this SCREENING CDT unspecified procedure are i n the results section. HC X-RAY HIP Routine 12/14/2004 Enthesopathy Of Hip Results for this COMPLETE >=2 VIEWS procedure are in the results section. documented in this encounter Results MAMMOGRAM, SCREENING (12/23/2004 3:20 PM CDT) Anatomical Region Laterality Modality Other Specimen (Source) Anatomical Collection Method Collection Time Re ceived Time Location / / Volume Laterality 12/23/2004 3:20 PM CDT Impressions 12/29/2004 9:17 AM CDT SCREENING MAMMOGRAM, BILATERAL BREAST SYMPTOMS: None. PREVIOUS MAMMOGRAPHY: Comparison with [facility] dated 07/28/00 and [facility] dated 11/25/03. ??There is no significant change. ?? BREAST PARENCHYMA: Heterogeneously dens e. FINDINGS: ?? Mammogram shows stable nodu les both breasts. ?? IMPRESSION: CATEGORY 2 Benign finding(s) TECHNOLOGIST INITIALS: MS Mari Esparza MD SPECIAL IMAGING STUDIES X-RAY HIP UNI 2+ VW (12/14/2004) Anatomical Region Laterality Modality Other Impressions 12/14/2004 REPORT OF OUTSIDE FILMS FROM [facility] MARZENA BRUSH : ??47 PELVIS AND RIGHT HIP: ??12/14/04 HISTORY: ??Pain. FINDINGS: ??Joint spaces appear well pre served. ??Bony mineralization alignment is normal. ?? IMPRESSION: ??Unremarkable. Mekhi Berry M.D./malathi D/T: ??12/16/04 Ordering MD/Provider Initial Interpretat ion: Abnormal with New Findings ??mild osteoa rthritis bilat Electronically filed by Aguilar Wheeler ??12/14/2004 ??4:39 PM . Mari Esparza MD GENERAL IMAGING documented in this encounter Visit Diagnoses Diagnosis Enthesopathy of hip region - Primary Hematuria Breast screening, unspecified documented in this encounter
--- OUTSIDE RECORDS SUMMARY | 2022-06-15 13:33 | XMS_ITS | Encounter Summary ---
:1945 Author Organization [place] Address [address] [place] [address] Care Team Providers Name Role Phone Unavailable Primary Care Provider Unavailable Reason for Visit Reason Onset Date Comments Refill Request 12/08/2004 see note Encounter Details Date Type Department Care Team Description 12/08/2004 Refill [facility] Mari Beard MD Refill Request (see [address] LANC[facility] SERGIONARGIS HUTCHINSON note) [place] [phone] [address] [phone] [facility] [place] [phone] (Wo rk) Social History Tobacco Use Types [...] Notes Telephone Encounter - Mari Esparza - 12/08/2004 10:06 AM CDT BP normal, ok to refill for one year despite note. Telephone Encounter - Niharika Hastings - 12/08/2004 9:23 AM CDT Last MD visit of 08/27/04 states pt. was to [facility] for physical in October. Had lab work done 11/13/04. Alee Hastings, RN documented in this encounter Plan of Treatment Upcoming Encounters Date Type Specialty Care Team Description 11/15/2022 Virtual Visit Pharm Haylie Gonzalez, [facility] [address] [facility] [address] (Wo rk) 11/15/2022 Virtual Visit [place] [address] [place] [address] [place] [phone] (Wo rk) 03/03/2023 Virtual Visit Neurology Erlinda Barber MD 420 [facility] 295 [place] [address] (Wo rk) documented as of this encounter Visit Diagnoses Diagnosis Essential hypertension, benign - Primary documented in this encounter
--- OUTSIDE RECORDS SUMMARY | 2022-06-15 13:33 | XMS_ITS | Encounter Summary ---
:1945 Author Organization [place] Address [address] [place] [address] Care Team Providers Name Role Phone Unavailable Primary Care Provider Unavailable Reason for Visit Reason Onset Date Comments Refill Request 12/08/2004 Warfarin Encounter Details Date Type Department Care Team Description 12/08/2004 Refill [facility] Collette Esparza, Mari Sifuentes MD Refill Request 1440 [facility] JOYCE HUTCHINSON (Warfarin) [place] [phone] [address] [phone] [place] [address] (Wo rk) Social History Tobacco [...] Notes Telephone Encounter - Khadar Austineen - 12/08/2004 11:25 AM CDT Med filled per standard nurse protocol, pt has been consistant with INR draws and scheduled for [facility] 12/10/04. Prasanth Austin RN documented in this encounter Plan of Treatment Upcoming Encounters Date Type Specialty Care Team Description 11/15/2022 Virtual Visit Pharm D Haylie Cheung, [facility] [address] [facility] [place] [address] (Wo rk) 11/15/2022 Virtual Visit IM/Peds Yane Barraza MD [address] [facility] [place] [address] (Wo rk) 03/03/2023 Virtual Visit Neurology Erlinda Barber MD [address] [facility] 295 [place] [address] (Wo rk) documented as of this encounter Visit Diagnoses Not on filedocumented in this encounter
--- OUTSIDE RECORDS SUMMARY | 2022-06-15 13:33 | XMS_ITS | Encounter Summary ---
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 Ayanna Reyes RN documented in this encounter Nursing Notes 12/21/2004 8:15 AM CDT >> AYANNA REYES 12/21/2004 8:51 am Charlette Brush presents for INR. Initial Wt 356 lbs (161.5kg) LMP Postmenopausal Estimated Body Mass Index is 56.61 kg/(m^2) as calculated from: Height of 5' 6.5 (1.689m) as of 08/27/04 Weight of 356 lbs (161.481 kg) as of this encounter . BP completed using cuff size: NA (Not Taken). Prasanth Reyes RN documented in this encounter Plan of Treatment Upcoming Encounters Date Type Specialty Care Team Description 11/15/2022 Virtual Visit Pharm Haylie Gonzalez, [facility] [address] [facility] [place] [place] [address] (Lena max) 11/15/2022 Virtual Visit IM[place] [address] [place] [address] [place] [address] (Lena max) 03/03/2023 Virtual Visit Neurology Erlinda Barber MD 420 [facility] 295 [place], [place] [address] (Lena max) documented as of this encounter Procedures Procedure Name Priority Date/Time Associated Comments Diagnosis ZZHC CAPILLARY BLOOD Routine 12/21/2004 8:50 AM Aftercare Senior Care COLLECTION CDT Anticoag Use HCL INR POCT Routine 12/21/2004 Aftercare Senior Care Results for this Anticoag Use procedure are i n the results section. 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
--- OUTSIDE RECORDS SUMMARY | 2022-06-15 13:33 | XMS_ITS | Encounter Summary ---
:1945 Author Organization [place] Address [address] [place] [address] Care Team Providers Name Role Phone Unavailable Primary Care Provider Unavailable Reason for Visit Reason Onset Date Comments Refill Request 11/09/2004 [facility] Encounter Details Date Type Department Care Team Description 11/09/2004 Refill [facility] Mari Beard MD Refill Request ([facility]) 14[address] [facility] JOYCE MurdockanEV[place] [phone] [address] [phone] [place] [address] (Wo rk) Social History Tobacco [...] D Haylie Cheung, [facility] [address] [facility] [place] [address] (Wo rk) 11/15/2022 Virtual Visit IM/Peds Yane Barraza MD [address] [facility] [place] [address] (Wo rk) 03/03/2023 Virtual Visit Neurology Erlinda Barber MD 420 [facility] 295 [place] [address] (Wo rk) documented as of this encounter Visit Diagnoses Not on filedocumented in this encounter
--- OUTSIDE RECORDS SUMMARY | 2022-06-15 13:33 | XMS_ITS | Encounter Summary ---
:1945 Author Organization [place] Address [address] [place] [address] Care Team Providers Name Role Phone Unavailable Primary Care Provider Unavailable Reason for Visit Reason Comments Anticoagulation Encounter Details Date Type Department Care Team Description 04/15/2005 Office Visit [facility] Eag an AFTERCARE INTERMEDIATE [address] [employer] ANTICOAG USE (Primary Dx) [place] [phone] Social [...] as of this encounter Progress Notes Prudence Reyes - 04/15/2005 9:06 AM CDT ANTICOAGULATION FOLLOW-UP CLINIC VISIT Patient Name: Charlette Brush Date: 04/15/2005 SUBJECTIVE: Bleeding Signs/Symptoms: None Thromboembolic Signs/Symptoms: None Medication Changes: NO Dietary Changes: NO Bacterial/Viral Infection: NO Missed Coumadin Doses: None Other Concerns: NO ASSESSMENT/PLAN: See: ANTICOAGULATION QIC flow sheet. [facility] ANTICOAGULATION CLINIC Prasanth Reyes RN documented in this encounter Nursing Notes 04/15/2005 8:45 AM CDT >> PRUDENCE REYES 04/15/2005 9:07 am Charlette Stilessevennithin presents for INR. Initial LMP Postmenopausal Estimated Body Mass Index is 55.52 kg/(m^2) as calculated from: Height of 5' 7.5 (1.715m) as of an earlier encounter on 04/15/05 Weight of 360 lbs (163.295 kg) as of an earlier encounter on 04/15/05. BP completed using cuff size: NA (Not Taken) Prasanth Reyes RN documented in this encounter Plan of Treatment Upcoming Encounters Date Type Specialty Care Team Description 11/15/2022 Virtual Visit Pharm Haylie Gonzalez, [facility] [address] [facility] [address] (Lena max) 11/15/2022 Virtual Visit IM[place] [address] [place] [address] [place] [phone] (Lena max) 03/03/2023 Virtual Visit Neurology Erlinda Barber MD 420 [facility] 295 [place] [address] (Lena max) documented as of this encounter Procedures Procedure Name Priority Date/Time Associated Comments Diagnosis ZZHC CAPILLARY BLOOD Routine 04/15/2005 9:06 AM Aftercare Track Fitter COLLECTION CDT Anticoag Use HCL INR POCT Routine 04/15/2005 Aftercare Track Fitter Results for this Anticoag Use procedure are i n the results section. 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
--- OUTSIDE RECORDS SUMMARY | 2022-06-15 13:33 | XMS_ITS | Encounter Summary ---
:1945 Author Organization [place] Address [address] [place] [address] Care Team Providers Name Role Phone Unavailable Primary Care Provider Unavailable Reason for Visit Reason Onset Date Comments INR RESULTS 08/27/2004 2.0 Encounter Details Date Type Department Care Team Description 08/27/2004 Telephone [facility] Collette Esparza, Mari Sifuentes MD INR RESULTS (2.0) 14[address] 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 12.5 mg T,Th,S,S, and 10mg MWF. Rec heck in 4 weeks.Nadeen Powell RN >> NADEEN POWELL MonAug 27, 2004 3:[address] 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
--- OUTSIDE RECORDS SUMMARY | 2022-06-15 13:33 | XMS_ITS | Encounter Summary ---
:1945 Author Organization [place] Address [address] [place] [address] Care Team Providers Name Role Phone Unavailable Primary Care Provider Unavailable Reason for Visit Reason Comments Anticoagulation Encounter Details Date Type Department Care Team Description 12/10/2004 Office Visit [facility] Eag an BENIGN HYPERTENSION (Primary Dx); [address] [employer] AFTERCARE SLITTER PROCESSED FILM ANTICOAG USE; [place] [phone] OTHER LYMPHEDEMA; [phone] EDEMA Social History Tobacco Use Types Packs/Day Years [...] - Inhaled Oxygen Concentration - - Weight 161.6 kg (356 lb 3.2 oz) 12/10/2004 9:15 AM CDT Height - - Body Mass Index 56.63 08/27/2004 1:55 PM METER TESTER PRIMARY documented in this encounter Progress Notes Qing Guy - 12/10/2004 12:40 PM CDT ANTICOAGULATION INITIAL CLINIC VISIT Patient Name: Charlette Brush Date: 12/10/2004 Referred by: Dr. Esparza SUBJECTIVE: Coumadin education was completed today. Topics covered include: -Introduction to coumadin -Proper Administration -INR Testing -Sign/Symptoms of Bleeding -Signs/Symptoms of Clot Formation or Stroke -Dietary Intake of Vitamin K -Drug Interactions -Anticoagulation Identification (bracelet, necklace or wallet card) -Future Surgery -Effects of Alcohol, Tabacco, and Exercise on Coumadin Coumadin Education Booklet and Coumadin Identification Wallet Card were given to the patient. Bleeding Signs/Symptoms: None Thromboembolic Signs/Symptoms: None Medication Changes: YES - Started taking Tylenol 1000mg tid in the past 2 weeks for hip pain. Dietary Changes: NO Bacterial/Viral Infection: NO Missed Coumadin Doses: None Other Concerns: NO ASSESSMENT/PLAN: See: ANTICOAGULATION QIC flowsheet. Qing Guy RN documented in this encounter Nursing Notes 12/10/2004 9:15 AM CDT >> QING GUY 12/10/2004 12:45 pm Charlette Brush presents for INR. She is having hip pain and started taking 3000mg of Tylenol qd. Hasan appt on 12/14/[address] Esparza to evaluate this and will have her INR rechecked also. Initial Wt 356 lbs 3.2 oz (161.6kg) LMP Postmenopausal Estimated Body Mass Index is 56.64 kg/(m^2)as calculated from: Height of 5' 6.5 (1.689m) as of 08/27/04 Weight of 356 lbs 3.2 oz (161.571 kg) as of this encounter. She was weighed at [facility]. BP completed using cuff size: NA (Not Taken). Qing Guy RN documented in this encounter Plan of Treatment Upcoming Encounters Date Type Specialty Care Team Description 11/15/2022 Virtual Visit Pharm D Haylie Cheung, [facility] 14[address] [facility] [place] [phone] (Wo rk) 11/15/2022 Virtual Visit IM/Peds Yane Barraza MD [address] [facility] [place] [phone] (Wo rk) 03/03/2023 Virtual Visit Neurology Erlinda Barber MD 420 [facility] 295 [place] [address] (Wo rk) documented as of this encounter Procedures Procedure Name Priority Date/Time Associated Diagnosis Comme nts ZZHC CAPILLARY Routine 12/10/2004 12:40 Aftercare Delinquency Prevention Social Worker BLOOD COLLECTION PM CDT Anticoag Use HCL UA MICRO IF Routine 12/10/2004 10:59 Benign Hypertension R esults for this POSITIVE AM CDT procedure are i n the results section. CL AFF MICRO Routine 12/10/2004 10:59 Edema Results for this EXAM-URINE AM CDT procedure are i n the results section. HCL INR POCT Routine 12/10/2004 Aftercare Delinquency Prevention Social Worker Results for this Anticoag Use procedure are i n the results section. documented in this encounter Results (ABNORMAL) MICRO EXAM-URINE (12/10/2004 10:59 AM CDT) athologist Signature WBC Urine O - 2 0 - 2 /HPF [facility] RBC Urine 5-10 (A) 0 - 2 /HPF [facility] Squamous EPI Few FEW /LPF [facility] Specimen Anatomical Collection Method Collection Time Receive d Time (Source) Location / / Volume Laterality 12/10/2004 10:59 12/10/2004 AM CDT 11:04 AM CDT Mari Esparza MD LABORATORY Performing Organization Address City/State/ZIP Code Phon e Number [facility] 14[address] [facility] [place] [address] [facility] (ABNORMAL) UA MICRO IF POSITIVE (12/10/2004 10:59 AM CDT) Patholo gist Method Time Signature Color Urine Yellow [facility] Appearance Urine Clear [facility] Glucose Urine Negative NEG mg/dL [facility] Bilirubin Urine Negative NEG [facility] Ketones Urine Negative NEG mg/dL [facility] Specific [place] 1.015 1.001 - [place] Urine 1.035 [facility] Blood Urine Moderate (A) NEG [facility] pH Urine 7.5 (H) 5.0 - 7.0 [place] pH [facility] Protein Albumin Negative NEG mg/dL [place] Urine [facility] Urobilinogen 0.2 0.2 - 1.0 [place] Urine EU/dL [facility] Nitrite Urine Negative NEG [facility] Leukocyte Trace (A) NEG [place] Esterase Urine [facility] Source Midstream [place] Urine [facility] Specimen Anatomical Collection Method Collection Time Receive d Time (Source) Location / / Volume Laterality 12/10/2004 10:59 12/10/2004 AM CDT 11:04 AM CDT Mari Esparza MD LABORATORY Performing Organization Address City/[facility]/ZIP Code Phon e Number [facility] [address] [place] [address] [facility] INR POINT OF CARE (12/10/2004) P athologist Signature INR Point of 3.7 [facility] Mari Esparza MD LABORATORY Performing Organization Address City/[facility]/ZIP Code Phon e Number [facility] documented in this encounter Visit Diagnoses Diagnosis Essential hypertension, benign - Primary [facility] (current) use of anticoagulant s Long-term (current) use of anticoagulant s Other lymphedema Edema documented in this encounter
--- OUTSIDE RECORDS SUMMARY | 2022-06-15 13:33 | XMS_ITS | Encounter Summary ---
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 Is taking Vicodin and Tylenol for a total of about 2000mg acetaminophen a day. ASSESSMENT/PLAN: See: ANTICOAGULATION QIC flow sheet. [facility] Qing Guy RN documented in this encounter Nursing Notes 01/21/2005 3:45 PM CDT >> QING GUY 01/21/2005 4:45 pm Charlette Brush presents for INR. Initial LMP Postmenopausal Estimated Body Mass Index is 56.61 kg/(m^2) as calculated from: Height of 5' 6.5 (1.689m) as of 08/27/04 Weight of 356 lbs (161.481 kg) as of 12/31/04 . She gets weighed at [facility] BP completed using cuff size: NA (Not Taken). Qing Guy RN documented in this encounter Plan of Treatment Upcoming Encounters Date Type Specialty Care Team Description 11/15/2022 Virtual Visit Pharm D Haylie Cheung, [facility] 1440 [facility] [place] [address] (Lena max) 11/15/2022 Virtual Visit IM/Peds Yane Barraza MD 3305 [facility] [place] [phone] (Lena max) 03/03/2023 Virtual Visit Neurology Erlinda Barber MD 420 [facility] 295 [place], [place] [phone] (Lena max) documented as of this encounter Procedures Procedure Name Priority Date/Time Associated Comments Diagnosis ZZHC CAPILLARY BLOOD Routine 01/21/2005 4:41 PM Aftercare Radio Officer COLLECTION CDT Anticoag Use HCL INR POCT Routine 01/21/2005 Aftercare [facility] Results for this Anticoag Use procedure are i n the results section. 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
--- OUTSIDE RECORDS SUMMARY | 2022-06-15 13:33 | XMS_ITS | Encounter Summary ---
:1945 Author Organization [place] Address [address] [place] [address] Care Team Providers Name Role Phone Unavailable Primary Care Provider Unavailable Reason for Visit Reason Onset Date Comments INR RESULTS 10/27/2004 INR today is 2.20 Encounter Details Date Type Department Care Team Description 10/27/2004 Telephone [facility] Mari Beard, INR RESULTS (INR today 1440 [facility] is 2.20) [place] [phone] AYLA COOK [phone] [place] [address] [place] [address] (Wo rk) Social [...] this encounter Miscellaneous Notes Telephone Encounter - Fabiana Powell - 10/28/2004 8:49 AM CDT L.M. on answer machine of INR of 2.20. Instructed to continue with same dose 10 mg MWF amd 12.5 mg all other days and to return in 4 weeks for next INR recheck.Fabiana Powell RN Telephone Encounter - Danni Marcus - 10/27/2004 4:09 PM CDT Please review INR questionnaire. Danica. Ashli Marcus RN documented in this encounter Plan of Treatment Upcoming Encounters Date Type Specialty Care Team Description 11/15/2022 Virtual Visit Pharm Haylie Gonzalez, 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
--- OUTSIDE RECORDS SUMMARY | 2022-06-15 13:33 | XMS_ITS | Encounter Summary ---
:1945 Author Organization [place] Address [address] [place] [address] Care Team Providers Name Role Phone Unavailable Primary Care Provider Unavailable Reason for Visit Reason Comments Anticoagulation Encounter Details Date Type Department Care Team Description 03/25/2005 Office Visit [facility] Eag an AFTERCARE [facility] [address] [email or web address] ANTICOAG USE (Primary Dx) [place] [phone] Social History Tobacco Use Types [...] - Inhaled Oxygen Concentration - - Weight 161.2 kg (355 lb 6.4 oz) 03/25/2005 3:15 PM CDT Height - - Body Mass Index 56.5 08/27/2004 1:55 PM BIG DATA SOFTWARE ENGINEER documented in this encounter Progress Notes Qing Guy - 03/25/2005 6:18 PM CDT ANTICOAGULATION FOLLOW-UP CLINIC VISIT Patient Name: Charlette Brush Date: 03/25/2005 SUBJECTIVE: Bleeding Signs/Symptoms: None Thromboembolic Signs/Symptoms: None Medication Changes: Has stopped taking Vicodin and is taking much less Tylenol Dietary Changes: NO Bacterial/Viral Infection: NO Missed Coumadin Doses: None Other Concerns: Hip pain is very much improved. Is going on a long car trip to a , but is planning on stopping frequently to walk around. ASSESSMENT/PLAN: See: ANTICOAGULATION QIC flow sheet. [facility] ANTICOAGULATION CLINIC Qing Guy RN documented in this encounter Nursing Notes 03/25/2005 3:15 PM CDT >> QING GUY 03/25/2005 6:23 pm Charlette Brush presents for INR. Initial Wt 355 lbs 6.4 oz (161.2kg) LMP Postmenopausal Estimated Body Mass Index is 56.51 kg/(m^2)as calculated from: Height of 5' 6.5 (1.689m) as of 08/27/04 Weight of 355 lbs 6.4 oz (161.208 kg) as of this encounter. BP completed using cuff size: NA (Not Taken) Qing Guy RN documented in this encounter Plan of Treatment Upcoming Encounters Date Type Specialty Care Team Description 11/15/2022 Virtual Visit Pharm D Haylie Cheung, [facility] 1440 [facility] [place] [address] (Lena max) 11/15/2022 Virtual Visit IM/Peds Yane Barraza MD 3305 [facility] [place] [address] (Lena max) 03/03/2023 Virtual Visit Neurology Erlinda Barber MD 420 [facility] 295 [place] [address] (Wo rk) documented as of this encounter Procedures Procedure Name Priority Date/Time Associated Comments Diagnosis ZZHC CAPILLARY BLOOD Routine 03/25/2005 6:18 PM Aftercare Metropolitan Editor COLLECTION CDT Anticoag Use HCL INR POCT Routine 03/25/2005 Aftercare Metropolitan Editor Results for this Anticoag Use procedure are i n the results section. documented in this encounter Results INR POINT OF CARE (03/25/2005) P athologist Signature INR Point of 1.7 [facility] Mari Esparza MD LABORATORY Performing Organization Address City/State/ZIP Code Phon e Number [facility] documented in this encounter Visit Diagnoses Diagnosis senior living (current) use of anticoagulant s - Primary Long-term (current) use of anticoagulant s documented in this encounter
--- OUTSIDE RECORDS SUMMARY | 2022-06-15 13:33 | XMS_ITS | Encounter Summary ---
:1945 Author Organization [place] Address [address] [place] [address] Care Team Providers Name Role Phone Unavailable Primary Care Provider Unavailable Reason for Visit Reason Comments Imm/Inj Pneumonia shot Encounter Details Date Type Department Care Team Description 04/29/2005 Telephone [facility] Mari Beard, Imm/Inj (Pneumonia [address] MD shot) [place] [phone] AYLA COOK [phone] JAS[place] [facility] [place] [address] (Wo rk) Social [...] Notes Telephone Encounter - Jennifer Alicia - 05/09/2005 4:14 PM CDT Pt notified ok for pneumovax. Jennifer Alicia FAN ENGINE ENGINEER Telephone Encounter - Jennifer Alicia - 05/09/2005 1:58 PM CDT PT RETURNING YOUR CALL, PT CAN BE REACHED BEST AT WORK [phone].JH Tried to call pt,got voice mail.L.M. for pt to call me.Jennifer Alicia FAN ENGINE ENGINEER Telephone Encounter - Jennifer Alicia - 05/09/2005 12:48 PM CDT L.M. for pt to call us at work number. Jennifer Alicia FAN ENGINE ENGINEER Telephone Encounter - Jennifer Alicia - 05/09/2005 7:38 AM CDT L.M. for pt to call me. Jennifer Alicia FAN ENGINE ENGINEER Telephone Encounter - Jennifer Alicia - 05/06/2005 7:40 AM CDT L.M. for pt to call us. Jennifer Alicia FAN ENGINE ENGINEER Telephone Encounter - Jennifer Alicia - 05/03/2005 7:54 AM CDT L.M. to call us. Jennifer Alicia FAN ENGINE ENGINEER Telephone Encounter - Jennifer Alicia - 05/02/2005 12:31 PM CDT L.M. for Pt to call us. Jennifer Alicia LPN Telephone Encounter - Isaias Mari Kay - 04/29/2005 5:21 PM CDT yes, she should get pneumonia shot. When getting it before age 65 you need to get a second one 5 years later. Telephone Encounter - Qing Guy - 04/29/2005 5:00 PM CDT Pt is wondering if she should get a pneumonia shot. She is planning on getting a flu shot, but wonders if she should get the pneumonia shot also. documented in this encounter Plan of Treatment Upcoming Encounters Date Type Specialty Care Team Description 11/15/2022 Virtual Visit Pharm D Haylie Cheung, [facility] 1440 [facility] [place] [phone] (Wo winter) 11/15/2022 Virtual Visit [place] [address] [place] [address] [place] [phone] (Wo rk) 03/03/2023 Virtual Visit Neurology Erlinda Barber MD 420 [facility] 295 [place] [address] (Wo rk) documented as of this encounter Visit Diagnoses Diagnosis Other pulmonary embolism and infarction - Primary documented in this encounter
--- OUTSIDE RECORDS SUMMARY | 2022-06-15 13:33 | XMS_ITS | Encounter Summary ---
:1945 Author Organization [place] Address [address] [place] [address] Care Team Providers Name Role Phone Unavailable Primary Care Provider Unavailable Reason for Visit Reason Comments Hypertension Encounter Details Date Type Department Care Team Description 04/15/2005 Office Visit [facility] Mari Esparza, [place] HYPERTENSION Yarelis PATEL (Primary Dx) 1440 [facility] [place] [address] [place] [phone] [facility] [place] [address] Social History Tobacco Use Types Packs/Day [...] Reading Time Taken Comments Blood Pressure 138/88 04/15/2005 8:15 AM CDT Pulse 88 04/15/2005 8:15 AM CDT Temperature - - Respiratory Rate - - Oxygen Saturation - - Inhaled Oxygen Concentration - - Weight 163.3 kg (360 lb) 04/15/2005 8:15 AM CDT Height 171.5 cm (5' 7.5) 04/15/2005 8:15 AM CDT Body Mass Index 55.55 04/15/2005 8:15 AM CDT documented in this encounter Progress Notes Mari Esparza - 04/24/2005 8:16 PM CDT S: Charlette Brush is a 60 year old female who is here for follow up of htn, was asked to come back as her BP was high at last visit. Is always higher when she first comes in due to exercise intolerance. Last visit was approximately 4 month ago. Since that time she has improved. Current therapy includes: maxzide and atenolol once a day. Lifestyle changes none. Patient is well known and past medical history, problem list, surgical and social histories were reviewed and updated today. O: BP 138/88 Pulse 88 Ht 5' 7.5 (1.72m) Wt 360 lbs (163.3kg) LMP Postmenopausal well appearing, no distress Exam deferred today other than my repeat BP that was lower than the nurses A/P: 401.1 BENIGN HYPERTENSION (primary encounter diagnosis) Note: moderate control with significant exercise intolerance and HTN in response to exercise Plan: ATENOLOL 25 MG OR TABS will increase atenolol to 50mg daily (pt wishes to take this BID instead of once a day as she is concerned it will lower too much if taken once a day) will recheck BP at next inr visit not due for routine labs and recheck until October 2005 documented in this encounter Nursing Notes 04/15/2005 8:15 AM CDT >> JENNIFER ALICIA 04/15/2005 8:30 am Charlette Brush presents for blood pressure follow-up, no other concerns. Jennifer Alicia DEVELOPMENT ENG . Initial BP 148/94 Pulse 88 Ht 5' 7.5 (1.72m) Wt 360 lbs (163.3kg) LMP Postmenopausal Body Mass Index is 55.52 kg/(m^2).. BP completed using cuff size: X-large documented in this encounter Plan of Treatment Upcoming Encounters Date Type Specialty Care Team Description 11/15/2022 Virtual Visit Pharm D Haylie Cheung, [facility] 14[address] [facility] [address] [place] [address] (Lena max) 11/15/2022 Virtual Visit IM/Peds Yane Barraza MD [address] [facility] [place] [address] (Wo winter) 03/03/2023 Virtual Visit Neurology Erlinda Barber MD 420 [facility] 295 [place] [address] (Lena max) documented as of this encounter Visit Diagnoses Diagnosis Essential hypertension, benign - Primary documented in this encounter
--- OUTSIDE RECORDS SUMMARY | 2022-06-15 13:33 | XMS_ITS | Encounter Summary ---
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 [employer] ANTICOAG USE (Primary Dx) [place] [phone] Social [...] - - Weight 161.5 kg (356 lb) 12/31/2004 3:45 PM CDT Height - - Body Mass Index 56.6 08/27/2004 1:55 PM IRRIGATION TECHNICIAN documented in this encounter Progress Notes Qing Guy - 12/31/2004 4:47 PM CDT ANTICOAGULATION FOLLOW-UP CLINIC VISIT Patient Name: Charlette Brush Date: 12/31/2004 SUBJECTIVE: Bleeding Signs/Symptoms: None Thromboembolic Signs/Symptoms: None Medication Changes: YES - starting on Vicodin for pain in hip Dietary Changes: NO Bacterial/Viral Infection: NO Missed Coumadin Doses: None Other Concerns: YES - continues to have significant pain in hip. Taking Tylenol, but will probably start taking less due to new pain med - vicodin. Has a referral to see ortho. ASSESSMENT/PLAN: See: ANTICOAGULATION QIC flow sheet. [facility] ANTICOAG[facility]ATION CLINIC Qing Guy RN documented in this encounter Nursing Notes 12/31/2004 3:45 PM CDT >> QING GUY 12/31/2004 4:56 pm Charlette Brush presents for INR. Unable to come for next recheck until 01/21/05. Initial Wt 356 lbs (161.5kg) LMP Postmenopausal [...] D Haylie Cheung, [facility] 1440 [facility] [place] [address] (Lena max) 11/15/2022 Virtual Visit IM/Peds Yane Barraza MD 2302 [facility] [place] [address] (Lena max) 03/03/2023 Virtual Visit Neurology Erlinda Barber MD 420 [facility] 295 [place] [address] (Wo rk) documented as of this encounter Procedures Procedure Name Priority Date/Time Associated Comments Diagnosis ZZHC CAPILLARY BLOOD Routine 12/31/2004 4:47 PM Aftercare Group Home COLLECTION CDT Anticoag Use HCL INR POCT Routine 12/31/2004 Aftercare Tree Inspector Results for this Anticoag Use procedure are i n the results section. 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
--- OUTSIDE RECORDS SUMMARY | 2022-06-15 13:33 | XMS_ITS | Encounter Summary ---
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 ANTICOAG USE (Primary Dx) [place] [phone] Social [...] Reading Time Taken Comments Blood Pressure 124/80 04/29/2005 3:45 PM CDT Pulse 88 04/29/2005 3:45 PM CDT Temperature - - Respiratory Rate - - Oxygen Saturation - - Inhaled Oxygen Concentration - - Weight - - Height - - Body Mass Index - - documented in this encounter Progress Notes Qing Guy - 04/29/2005 4:56 PM CDT ANTICOAGULATION FOLLOW-UP CLINIC VISIT Patient Name: Charlette Brush Date: 04/29/2005 SUBJECTIVE: Bleeding Signs/Symptoms: None Thromboembolic Signs/Symptoms: None Medication Changes: Atenolol was increased on 04/15/05 Dietary Changes: NO Bacterial/Viral Infection: NO Missed Coumadin Doses: None Other Concerns: NO ASSESSMENT/PLAN: See: ANTICOAGULATION QIC flow sheet. [facility] Qing Guy RN documented in this encounter Nursing Notes 04/29/2005 3:45 PM CDT >> QING GUY 04/29/2005 5:02 pm Charlette Brush presents for INR and BP check because of medication change. Patient is taking medication as prescribed Patient is tolerating medications well. Current complaints: none Disposition: follow-up as indicated by Initial BP 124/80 Pulse 88 LMP Postmenopausal Estimated Body Mass Index is 55.52 kg/(m^2) as calculated from: Height of 5' 7.5 (1.715m) as of 04/15/05 Weight of 360 lbs (163.295 kg) as of 04/15/05. BP completed using cuff size: X-large Qing Guy RN documented in this encounter Plan of Treatment Upcoming Encounters Date Type Specialty Care Team Description 11/15/2022 Virtual Visit Pharm Haylie Gonzalez, [facility] [address] [facility] [place] [address] (Lena max) 11/15/2022 Virtual Visit IM/Peds Yane Barraza MD [address] [facility] [place] [address] (Lena max) 03/03/2023 Virtual Visit Neurology Erlinda Barber MD 420 [facility] [address] [place] [address] (Lena max) documented as of this encounter Procedures Procedure Name Priority Date/Time Associated Diagnosis Comme nts HCL INR POCT Routine 04/29/2005 Aftercare [facility] Living Results for this Anticoag Use procedure are i n the results section . 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
--- OUTSIDE RECORDS SUMMARY | 2022-06-15 13:33 | XMS_ITS | Encounter Summary ---
:1945 Author Organization [place] Address [address] [place] [address] Care Team Providers Name Role Phone Unavailable Primary Care Provider Unavailable Reason for Visit Reason Comments Blood Draw Encounter Details Date Type Department Care Team Description 10/27/2004 Orders Only [facility] Eag an PULM EMBOLISM/INFARCT NOS 14[address] [facility] [place] [phone] Social [...] Virtual Visit Haylie Wakefield, [facility] [address] [address] (Wo rk) 11/15/2022 Virtual Visit IM/Peds Yane Barraza MD [address] [facility] [address] [facility] [place] [address] (Wo rk) 03/03/2023 Virtual Visit Neurology Erlinda Barber MD 420 [facility] [address] [place] [address] (Wo rk) documented as of this encounter Procedures Procedure Name Priority Date/Time Associated Comments Diagnosis CL AFF PROTHROMBIN Routine 10/27/2004 3:56 PM PULM Res ults for this TIME CDT EMBOLISM/INFARCT procedure a re in NOS the results section. documented in this encounter Results (ABNORMAL) PROTHROMBIN TIME (10/27/2004 3:56 PM CDT) P athologist Signature INR 2.20 (H) 0.86 - 1.14 [facility] Specimen Anatomical Collection Method Collection Time Receive d Time (Source) Location / / Volume Laterality 10/27/2004 3:56 PM 200 5 3:59 CDT PM CDT Mari Esparza MD LABORATORY Performing Organization Address City/State/ZIP Code Phon e Number [facility] [address] [facility] [place] [address] [facility] documented in this encounter Visit Diagnoses Diagnosis PULM EMBOLISM/INFARCT NOS Other pulmonary embolism and infarction documented in this encounter
--- OUTSIDE RECORDS SUMMARY | 2022-06-15 13:33 | XMS_ITS | Encounter Summary ---
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 ASSESSMENT/PLAN: See: ANTICOAGULATION QIC flow sheet. [facility] Prasanth Reyes RN documented in this encounter Nursing Notes 02/22/2005 3:45 PM CDT >> AYANNA REYES 02/22/2005 4:28 pm Charlette Brush presents for INR. Initial Wt 360 lbs (163.3kg) LMP Postmenopausal Estimated Body Mass Index is 57.24 kg/(m^2) as calculated from: Height of 5' 6.5 (1.689m) as of 08/27/04 Weight of 360 lbs (163.295 kg) as of this encounter . BP completed using cuff size: not taken. Prasanth Reyes RN documented in this encounter Plan of Treatment Upcoming Encounters Date Type Specialty Care Team Description 11/15/2022 Virtual Visit Pharm D Haylie Cheung, [facility] 14[address] [facility] [place] [address] (Lena max) 11/15/2022 Virtual Visit [place] [address] [place] [address] [place] [address] (Lena max) 03/03/2023 Virtual Visit Neurology Erlinda Barber MD [address] [facility] [address] [place] [address] (Lena max) documented as of this encounter Procedures Procedure Name Priority Date/Time Associated Comments Diagnosis ZZHC CAPILLARY BLOOD Routine 02/22/2005 4:28 PM Aftercare Group Home COLLECTION CDT Anticoag Use HCL INR POCT Routine 02/22/2005 Aftercare Basket [place] Results for this Anticoag Use procedure are i n the results section. 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
--- OUTSIDE RECORDS SUMMARY | 2022-06-15 13:33 | XMS_ITS | Encounter Summary ---
:1945 Author Organization [place] Address [address] [place] [address] Care Team Providers Name Role Phone Unavailable Primary Care Provider Unavailable Reason for Visit Reason Onset Date Comments INR RESULTS 09/24/2004 Encounter Details Date Type Department Care Team Description 09/24/2004 Telephone [facility] Collette Esparza, Mari Sifuentes MD INR RESULTS 1440 [facility] [place] [phone] [address] [phone] [place] [address] (Wo rk) Social History Tobacco [...] Notes Telephone Encounter - Mari Esparza - 09/24/2004 5:29 PM CST left messge on pts machine to recheck in 4 weeks. 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
--- OUTSIDE RECORDS SUMMARY | 2022-06-15 13:33 | XMS_ITS | Encounter Summary ---
:1945 Author Organization [place] Address [address] [place] [address] Care Team Providers Name Role Phone Unavailable Primary Care Provider Unavailable Reason for Visit Reason Comments Anticoagulation Encounter Details Date Type Department Care Team Description 04/08/2005 Office Visit [facility] Eag an AFTERCARE INTERMEDIATE [address] [employer] ANTICOAG USE (Primary Dx) [place] [phone] Social History Tobacco Use Types [...] - - Weight 160.8 kg (354 lb 8 oz) 04/08/2005 3:45 PM CDT Height 168.9 cm (5' 6.5) 04/08/2005 3:45 PM CDT Body Mass Index 56.36 04/08/2005 3:45 PM CDT documented in this encounter Progress Notes Ayanna Reyes - 04/08/2005 5:02 PM CDT ANTICOAGULATION FOLLOW-UP CLINIC VISIT Patient Name: Charlette Brush Date: 04/08/2005 SUBJECTIVE: Bleeding Signs/Symptoms: None Thromboembolic Signs/Symptoms: None Medication Changes: Taking less Tylenol for resolving hip pain Dietary Changes: NO Bacterial/Viral Infection: NO Missed Coumadin Doses: None Other Concerns: NO ASSESSMENT/PLAN: See: ANTICOAGULATION QIC flow sheet. [facility] Prasanth Reyes RN documented in this encounter Nursing Notes 04/08/2005 3:45 PM CDT >> AYANNA REYES 04/08/2005 4:12 pm Charlette Brush presents for INR. Initial Ht 5' 6.5 (1.69m) Wt 354 lbs 8.0 oz (160.8kg) LMP Postmenopausal Body Mass Index is 56.37 kg/(m^2).. BP completed using cuff size: NA (Not Taken) Prasanth Reyes RN documented in this encounter Plan of Treatment Upcoming Encounters Date Type Specialty Care Team Description 11/15/2022 Virtual Visit Pharm D Haylie Cheung, 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 documented in this encounter Results INR POINT OF CARE (04/08/2005) P athologist Signature INR Point of 1.7 [facility] Mari Esparza MD LABORATORY Performing Organization Address City/State/ZIP Code Phon e Number [facility] documented in this encounter Visit Diagnoses Diagnosis nursing home (current) use of anticoagulant s - Primary Long-term (current) use of anticoagulant s documented in this encounter
--- OUTSIDE RECORDS SUMMARY | 2022-06-15 13:33 | XMS_ITS | Encounter Summary ---
:1945 Author Organization [place] Address [address] [place] [address] Care Team Providers Name Role Phone Unavailable Primary Care Provider Unavailable Reason for Visit Reason Comments Blood Draw Encounter Details Date Type Department Care Team Description 11/13/2004 Orders Only [facility] Eag an ROUTINE MEDICAL EXAM; [address] [employer] BENIGN HYPERTENSION [place] [phone] Social History Tobacco Use [...] Visit Haylie Wakefield, [facility] [address] [place] [address] (Wo rk) 11/15/2022 Virtual Visit IM/Peds Yane Barraza MD [address] [facility] [place] [address] (Wo rk) 03/03/2023 Virtual Visit Neurology Erlinda Barber MD [address] [facility] 295 [place] [address] (Wo rk) documented as of this encounter Procedures Procedure Name Priority Date/Time Associated Diagnosis Comme nts HCL COMPREHENSIVE Routine 11/13/2004 10:46 Routine Medic al Exam Results for this METABOLIC PANEL AM CDT BENIGN HYPERTENSION proce dure are in the results section. CL AFF A.M.A. LIPID Routine 11/13/2004 10:46 Routine Medical E xam Results for this PANEL AM CDT procedure are i n the results section. documented in this encounter Results (ABNORMAL) A.M.A. COMPREHENSIVE MET.PANEL (11/13/2004 10:46 AM CDT) P athologist Signature Sodium 138 133 - 144 [facility] mmol/L [facility] Potassium 3.5 3.4 - 5.3 [facility] mmol/L [facility] Chloride 103 94 - 109 [facility] mmol/L [facility] Carbon Dioxide 30 20 - 32 [facility] mmol/L [facility] Anion Gap 5 (L) 6 - 17 [facility] mmol/L [facility] Glucose 103 60 - 110 [facility] mg/dL [facility] Urea Nitrogen 18 7 - 30 [facility] mg/dL [facility] Creatinine 0.60 0.60 - [facility] 1.30 mg/dL [facility] GFR Estimate >80 >60 [facility] mL/min/1.7 [facility] m2 LAB GFR Estimate If >80 >60 [facility] Black mL/min/1.7 [facility] m2 LAB Calcium 8.8 8.5 - 10.4 [facility] mg/dL [facility] Bilirubin Total 0.5 0.2 - 1.3 [facility] mg/dL [facility] Albumin 3.4 3.2 - 4.5 [facility] g/dL [facility] Protein Total 6.9 6.0 - 8.2 [facility] g/dL [facility] Alkaline 93 40 - 150 [facility] Phosphatase U/L [facility] ALT 24 0 - 50 U/L [facility] AST 26 0 - 45 U/L [facility] Specimen Anatomical Collection Method Collection Time Receive d Time (Source) Location / / Volume Laterality 11/13/2004 10:46 11/13/2004 AM CDT 10:49 AM CDT Mari Esparza MD LABORATORY Performing Organization Address [facility] Phon e Number [facility] [address] [place] [address] [employer] [facility] (ABNORMAL) A.M.A. LIPID PANEL (11/13/2004 10:46 AM CDT) athologist Signature Cholesterol 143 0 - 200 [facility] mg/dL [facility] Comment: Cholesterol Reference Range: <200 ??The NCEP recommends further ? evaluation of: ? 1. ??Patients with cholesterol ? greater than 200 mg/dL ? if additional risk facto rs ? are present. ? 2. ??All patients with a ? cholesterol greater than ? 240 mg/dL. Triglycerides 134 0 - 150 mg/dL [facility] HDL Cholesterol 38 (L) >40 mg/dL [facility] LDL Cholesterol Calculated 77 0 - 129 mg/dL [facility] VLDL-Cholesterol 27 0 - 30 mg/dL [facility] Cholesterol/HDL Ratio 3.7 0.0 - 5.0 [facility] Specimen Anatomical Collection Method Collection Time Receive d Time (Source) Location / / Volume Laterality 11/13/2004 10:46 11/13/2004 AM CDT 10:49 AM CDT Mari Esparza MD LABORATORY Performing Organization Address City/[facility] Code Phon e Number [facility] [address] [place] [address] [facility] LAB documented in this encounter Visit Diagnoses Diagnosis Routine general medical examination at a health care facility BENIGN HYPERTENSION Essential hypertension, benign documented in this encounter
--- OUTSIDE RECORDS SUMMARY | 2022-06-15 13:33 | XMS_ITS | Encounter Summary ---
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 Is taking Vicodin and Tylenol for a total of 1500mg to 2000mg acetaminophen a day. ASSESSMENT/PLAN: See: ANTICOAGULATION QIC flow sheet. [facility] Qing Guy RN documented in this encounter Nursing Notes 02/04/2005 3:45 PM CDT >> QING GUY 02/04/2005 4:54 pm Charlette Velma Brush presents for INR. Initial LMP Postmenopausal Estimated Body Mass Index is 56.61 kg/(m^2) as calculated from: Height of 5' 6.5 (1.689m) as of 08/27/04 Weight of 356 lbs (161.481 kg) as of 12/31/04 . BP completed using cuff size: NA (Not Taken). Qing Guy RN documented in this encounter Plan of Treatment Upcoming Encounters Date Type Specialty Care Team Description 11/15/2022 Virtual Visit Pharm D Haylie Cheung, [facility] [address] [facility] [place] [phone] (Lena max) 11/15/2022 Virtual Visit IM/PedYane Muir MD [address] [facility] [place] [phone] (Lena max) 03/03/2023 Virtual Visit Neurology Erlinda Barber MD 420 [facility] 295 [place], [place] [phone] (Lena max) documented as of this encounter Procedures Procedure Name Priority Date/Time Associated Comments Diagnosis ZZHC CAPILLARY BLOOD Routine 02/04/2005 4:50 PM [facility] COLLECTION CDT Anticoag Use HCL INR POCT Routine 02/04/2005 [facility] Results for this Anticoag Use procedure are i n the results section. 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
--- OUTSIDE RECORDS SUMMARY | 2022-06-15 13:33 | XMS_ITS | Encounter Summary ---
:1945 Author Organization [place] Address [address] [place] [address] Care Team Providers Name Role Phone Unavailable Primary Care Provider Unavailable Reason for Referral - Closed Specialty Diagnoses / Procedures Referred By Contact Refer red To Contact Diagnoses Enthesopathy of hip region Mari Esparza MD [facility] [place] [address] [place] [address] Referral ID Status Reason Start Date Expiration Date Visits Requ ested Visits Authorized [id number] Closed 12/30/2004 07/16/2011 1 1 Reason for Visit Reason Onset Date Comments Musculoskeletal Problem 12/30/2004 R hip pain Encounter Details Date Type Department Care Team Description 12/30/2004 Telephone [facility] Mari Esparza Muscu loskeletal Problem Yarelis PATEL (R hip pain) [address] [facility] [place] [phone] [place] [phone] [phone] Social History Tobacco Use Types Packs/Day Years [...] 05/03/2021 organizations such as taoism groups, unions, [employer] or athletic groups, or school groups? How [...] Notes Telephone Encounter - Susie Murphy - 12/30/2004 2:07 PM CDT LM with info below. Susie Murphy RN Telephone Encounter - Mari Esparza - 12/30/2004 1:15 PM CDT needs to see ortho but I can send rx for some vicodin to pharmacy. Please give her referral to orthoconsultants Dr Chepe German. Telephone Encounter - Susie Murphy - 12/30/2004 9:01 AM CDT Pt having severe pain R hip. Tylenol is not helping the pain. Pt getting more and more stiff. What should she do now? Can she have something stronger for pain or should she see ortho? Pt has INR appt at 3:45PM tomorrow here. Susie Murphy RN documented in this encounter Plan of Treatment Upcoming Encounters Date Type Specialty Care Team Description 11/15/2022 Virtual Visit Pharm Haylie Gonzalez, [facility] [address] [facility] [place] [address] (Wo rk) 11/15/2022 Virtual Visit IM/Peds Yane Barraza MD [address] [place] [address] [address] (Wo rk) 03/03/2023 Virtual Visit Neurology Erlinda Barber MD 420 [facility] [address] [place], [place] [phone] (Wo rk) Scheduled Referrals Name Type Priority Associated Diagnoses Order S chedule CONSULT ORTHOPEDIC Referral Routine Enthesopathy Of Hip Ordered: 12/30/2004 GENERAL documented as of this encounter Visit Diagnoses Diagnosis Enthesopathy of hip region - Primary documented in this encounter
--- OUTSIDE RECORDS SUMMARY | 2022-06-15 13:33 | XMS_ITS | Encounter Summary ---
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 Dietary Changes: NO Bacterial/Viral Infection: NO Missed Coumadin Doses: None Other Concerns: Continues with significant hip pain x 2 weeks, appt today with PMD. ASSESSMENT/PLAN: See: ANTICOAGULATION QIC flow sheet. Ayanna eRyes RN documented in this encounter Nursing Notes 12/14/2004 3:15 PM CDT >> AYANNA REYES 12/14/2004 4:04 pm Charlette Brush presents for INR. Initial Wt 256 lbs 3.2 oz (116.2kg) LMP Postmenopausal Estimated Body Mass Index is 40.74 kg/(m^2)as calculated from: Height of 5' 6.5 (1.689m) as of 08/27/04 Weight of 256 lbs 3.2 oz (116.212 kg) as of this encounter . BP completed using cuff size: not taken Prasanth Reyes RN documented in this encounter Plan of Treatment Upcoming Encounters Date Type Specialty Care Team Description 11/15/2022 Virtual Visit Pharm Haylie Gonzalez, [facility] [address] [facility] [place] [address] (Lena max) 11/15/2022 Virtual Visit IM/Peds Yane Barraza MD [address] [facility] K [facility] [place] [address] (Lena max) 03/03/2023 Virtual Visit Neurology Erlinda Barber MD [address] [facility] 295 [place], [place] [phone] (Lena max) documented as of this encounter Procedures Procedure Name Priority Date/Time Associated Comments Diagnosis ZZHC CAPILLARY BLOOD Routine 12/14/2004 4:03 PM Aftercare Laundry Machine Tender COLLECTION CDT Anticoag Use HCL INR POCT Routine 12/14/2004 Aftercare Detention Results for this Anticoag Use procedure are i n the results section. 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
--- OUTSIDE RECORDS SUMMARY | 2022-06-15 13:33 | XMS_ITS | Encounter Summary ---
:1945 Author Organization [place] Address [address] [place] [address] Care Team Providers Name Role Phone Unavailable Primary Care Provider Unavailable Reason for Visit Reason Onset Date Comments Refill Request 01/11/2005 Encounter Details Date Type Department Care Team Description 01/11/2005 Refill [facility] Collette Esparza, Mari Sifuentes MD Refill Request 14[address] [facility] [place] [phone] [address] [phone] [place] [address] (Wo rk) Social History Tobacco [...] Haylie Cheung, [facility] [address] [facility] [address] [place], [place] [address] (Wo rk) 11/15/2022 Virtual Visit IM/Peds Yane Barraza MD [address] [facility] [place] [address] (Wo rk) 03/03/2023 Virtual Visit Neurology Erlinda Barber MD 420 [facility] 295 [place] [address] (Wo rk) documented as of this encounter Visit Diagnoses Diagnosis Enthesopathy of hip region - Primary documented in this encounter
--- OUTSIDE RECORDS SUMMARY | 2022-06-15 13:34 | XMS_ITS | Encounter Summary ---
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 [address] [employer] ANTICOAG USE (Primary Dx) [place] [phone] [...] Visit Haylie Wakefield, [facility] [address] [facility] [address] [place], [place] [phone] (Wo rk) 11/15/2022 Virtual Visit IM/Peds Yane Barraza MD [address] [facility] [address] [facility] [place] [address] (Wo rk) 03/03/2023 Virtual Visit Neurology Erlinda Barber MD 420 [facility] 295 [place] [address] (Wo rk) documented as of this encounter Procedures Procedure Name Priority Date/Time Associated Comments Diagnosis CL AFF PROTHROMBIN Routine 02/27/2004 3:14 PM Aftercare Long T erm Results for this TIME CDT Anticoag Use procedure are i n the results section. documented in this encounter Results (ABNORMAL) PROTHROMBIN TIME (02/27/2004 3:14 PM CDT) P athologist Signature INR 1.60 (H) 0.86 - 1.14 [facility] Specimen Anatomical Collection Method Collection Time Receive d Time (Source) Location / / Volume Laterality 02/27/2004 3:14 PM 4 3:15 CDT PM CDT Mari Esparza MD LABORATORY Performing Organization Address City/State/ZIP Code Phon e Number [facility] [address] [facility] [place] [address] [facility] documented in this encounter Visit Diagnoses Diagnosis [facility] (current) use of anticoagulant s - Primary Long-term (current) use of anticoagulant s documented in this encounter
--- OUTSIDE RECORDS SUMMARY | 2022-06-15 13:34 | XMS_ITS | Encounter Summary ---
:1945 Author Organization [place] Address [address] [place] [address] Care Team Providers Name Role Phone Unavailable Primary Care Provider Unavailable Reason for Visit Reason Comments Hypertension Encounter Details Date Type Department Care Team Description 04/01/2004 Office Visit [facility] Eag an MORBID OBESITY (Primary [address] Dx) [place] [phone] Social History Tobacco [...] Sign Reading Time Taken Comments Blood Pressure 102/78 04/01/2004 1:40 PM CDT Pulse 80 04/01/2004 1:40 PM CDT Temperature - - Respiratory Rate - - Oxygen Saturation - - Inhaled Oxygen Concentration - - Weight - - Height - - Body Mass Index - - documented in this encounter Nursing Notes 04/01/2004 1:30 PM CDT >> LUIS A LAZARO 04/01/2004 1:45 pm Charlette Brush is a 59 year old female who comes in today for a Blood Pressure check because of ongoing blood pressure monitoring. (Use extended vital tab for multiple readings and orthostatic) Vitals as recorded, a thigh cuff was used. Patient is taking medication as prescribed Patient is not tolerating medications well. Patient is not monitoring Blood Pressure at home. Average readings if yes are 102/80 Current complaints: light-headedness Disposition: follow-up as indicated by MD/AP Luis A Lazaro MA documented in this encounter Plan of Treatment Upcoming Encounters Date Type Specialty Care Team Description 11/15/2022 Virtual Visit Pharm Haylie Gonzalez, [facility] [address] [facility] [address] [place] [phone] (Wo rk) 11/15/2022 Virtual Visit [place] [address] [place] [address] [place] [phone] (Wo rk) 03/03/2023 Virtual Visit Neurology Erlinda Barber MD [address] [facility] 295 [place] [address] (Lena max) documented as of this encounter Visit Diagnoses Diagnosis MORBID OBESITY - Primary Morbid obesity documented in this encounter
--- OUTSIDE RECORDS SUMMARY | 2022-06-15 13:34 | XMS_ITS | Encounter Summary ---
:1945 Author Organization [place] Address [address] [place] [address] Care Team Providers Name Role Phone Unavailable Primary Care Provider Unavailable Reason for Visit Reason Comments Blood Draw Encounter Details Date Type Department Care Team Description 06/22/2004 Orders Only [facility] Eag an AFTERCARE DIRECTOR OF CARDIOLOGY [address] ANTICOAG USE [place] [phone] Social History [...] [place], [facility] [address] [place] [address] (Wo rk) 11/15/2022 Virtual Visit IM/Peds Yane Barraza MD [address] [facility] K [facility] [place] [address] (Wo rk) 03/03/2023 Virtual Visit Neurology Erlinda Barber MD 420 [facility] 295 [place] [address] (Wo rk) documented as of this encounter Procedures Procedure Name Priority Date/Time Associated Comments Diagnosis CL AFF PROTHROMBIN Routine 06/22/2004 4:18 PM Aftercare Long T erm Results for this TIME MAGISTRATE JUDGE Anticoag Use procedure are i n the results section. 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
--- OUTSIDE RECORDS SUMMARY | 2022-06-15 13:34 | XMS_ITS | Encounter Summary ---
:1945 Author Organization [place] Address [address] [place] [address] Care Team Providers Name Role Phone Unavailable Primary Care Provider Unavailable Reason for Visit Reason Onset Date Comments Medication Problem 04/27/2004 flonase Encounter Details Date Type Department Care Team Description 04/27/2004 Refill [facility] Xu Beard MD Medication Problem [address] [facility] JOYCE HUTCHINSON (flonase) [place] [phone] [address] [phone] [place] [address] (Wo rk) Social History Tobacco [...] this encounter Miscellaneous Notes Telephone Encounter - 04/27/2004 8:54 AM CDT >> KIM ODELL MonApr 28, 2004 2:54 PM Pt notified of message below. No further questions. Ashli Odell RN >> NELY DOWNS MonApr 28, 2004 2:38 PM Left message on machine for patient to call back. ADI Noble >> XU VERGARA MonApr 27, 2004 4:58 PM I don't what the buzzing is about. It could all be from the fluid in her ear. It is not from the m edication nor any allergy from it. In fact it probably means she needs more/longer treatment with i tto get rid of the fluid and get rid of the buzzing. I would continue the medication. >> XU VERGARA barrett Apr 27, 2004 4:56 PM I don't know what the buz >> NADEEN FERREIRA [facility] Apr 27, 2004 4:36 PM Pt calling to find out if Dr. Vergara had a message for her. She still has the same buzzing in her hea d as she did this am.Nadeen Ferreira RN >> NADEEN FERREIRA [facility] Apr 27, 2004 8:58 AM Pt calling to report she started the nasacort at hs and today she can hear a buzz in her head. Since she has been allergic to so many things she would like Dr. Vergara to know and is wonderi ng if sheshould continue to use it. documented in this encounter Plan of Treatment Upcoming Encounters Date Type Specialty Care Team Description 11/15/2022 Virtual Visit Pharm D Haylie Cheung, [facility] [address] [facility] [place] [address] (Lena max) 11/15/2022 Virtual Visit IM/Peds Yane Barraza MD [address] [facility] [place] [address] (Lena max) 03/03/2023 Virtual Visit Neurology Erlinda Barber MD 420 [facility] 295 [place], [place] [phone] (Lena max) documented as of this encounter Visit Diagnoses Not on filedocumented in this encounter
--- OUTSIDE RECORDS SUMMARY | 2022-06-15 13:34 | XMS_ITS | Encounter Summary ---
:1945 Author Organization [place] Address [address] [place] [address] Care Team Providers Name Role Phone Unavailable Primary Care Provider Unavailable Reason for Referral - Closed Specialty Diagnoses / Procedures Referred By Contact Refer red To Contact Diagnoses Dizziness and giddiness Mari Esparza MD [facility] [address] [place] [address] Referral ID Status Reason Start Date Expiration Date Visits Requ ested Visits Authorized [id number] Closed 08/05/2004 07/16/2011 1 1 IZATION REVIEWER Reason for Visit Reason Comments Dizziness Encounter Details Date Type Department Care Team Description 08/05/2004 Office Visit [facility] Mari Esparza, [facility] [place] (Primary 14[address] [facility] AYLA Cobos) [place] [phone] JASPER [phone] [place] [address] (Wo rk) Social History Tobacco Use [...] 05/03/2021 organizations such as cheondoism groups, unions, fraMoneytree or athletic groups, or school groups? How [...] Sign Reading Time Taken Comments Blood Pressure 110/74 08/05/2004 3:42 PM UTILIZATION REVIEWER Pulse 80 08/05/2004 3:42 PM UTILIZATION REVIEWER Temperature - - Respiratory Rate - - Oxygen Saturation - - Inhaled Oxygen Concentration - - Weight - - Height - - Body Mass Index - - documented in this encounter Progress Notes 08/05/2004 3:30 PM UTILIZATION REVIEWER S: Charlette Brush is a 59 year old female who is here for follow up of dizziness, sometimes worse thanothers, not daily, feels off balance, room spinning, going on off and on for a year but worse the past couple of weeks. Last visit was approximately 3 month ago. Since that time she has not changed. Current therapy includes: see meds. Lifestyle changes none. This has been a chronic problem that appears to get worse in episodic periods Patient is well known and past medical history, problem list, surgical and social histories were reviewed and updated today. O: BP 110/74 Pulse 80 LMP Postmenopausal well appearing, no distress Tm's clear Op clear Neck: supple, no bruits, no thyromegaly Lungs: clear CV: RRR no mrg A/P: 780.4 DIZZINESS AND GIDDINESS (primary encounter diagnosis) Note: differential includes Meineres, postural dizziness due to morbid obesity, brain lesion Plan: MRI BRAIN, CONSULT OTOLARYNGOLOGY will check MRI and refer to ENT to start eval. If ent eval negative may need to also consider eval of carotids but is already on coumadin. I think this is mostly functional due to changes in volume status and obesity documented in this encounter Nursing Notes 08/05/2004 3:30 PM CST >> LUIS A LAZARO 08/05/2004 3:44 pm Charlette Brush presents for states nasacort is giving her buzzing ears, when she bends over she becomes extremely dizzy, many episodes lately of random dizziness. Initial BP 110/74 Pulse 80 LMP Postmenopausal. BP completed using cuff size: X-large. Luis A Lazaro MA documented in this encounter Plan of Treatment Upcoming Encounters Date Type Specialty Care Team Description 11/15/2022 Virtual Visit Pharm Haylie Gonzalez, [facility] [address] [facility] [place] [address] (Wo rk) 11/15/2022 Virtual Visit IM/Peds Yane Barraza MD [address] [facility] [address] [facility] [place] [address] (Wo rk) 03/03/2023 Virtual Visit Neurology Erlinda Barber MD 420 [facility] 295 [place] [address] (Wo rk) documented as of this encounter Procedures Procedure Name Priority Date/Time Associated Diagnosis Comme nts ZZ CONSULT OTOLARYNGOLOGY (ENT) Routine 01/05/2012 Dizziness and giddiness documented in this encounter Results CONSULT OTOLARYNGOLOGY (01/05/2012) Narrative This result has an attachment that is no t available. Mari Esparza MD REFERRAL documented in this encounter Visit Diagnoses Diagnosis Dizziness and giddiness - Primary documented in this encounter
--- OUTSIDE RECORDS SUMMARY | 2022-06-15 13:34 | XMS_ITS | Encounter Summary ---
:1945 Author Organization [place] Address [facility] [place] [address] Care Team Providers Name Role Phone Unavailable Primary Care Provider Unavailable Encounter Details Date Type Department Care Team Description 02/18/2004 Results Only Vandana Gorman MD [place] [facility] [address] [place] [address] [place], [place] [address] (Wo rk) Social History Tobacco Use Types [...] Haylie Wakefield, [facility] [address] [place] [address] (Wo rk) 11/15/2022 Virtual Visit IM/Peds Yane Barraza MD [address] [facility] [place] [address] (Wo rk) 03/03/2023 Virtual Visit Neurology Erlinda Barber MD 420 [facility] 295 [place] [address] (Wo rk) documented as of this encounter Procedures Procedure Name Priority Date/Time Associated Diagnosis Comme nts HC COLON AIR Routine 02/18/2004 11:12 AM Results for this CONTRAST CDT procedure are i n the results section. documented in this encounter Results X-RAY COLON AIR CONTRAST (02/18/2004 11:12 AM CDT) Anatomical Region Laterality Modality Other Specimen (Source) Anatomical Collection Method Collection Time Re ceived Time Location / / Volume Laterality 02/18/2004 11:12 AM CDT Impressions 02/19/2004 9:41 AM CDT AIR CONTRAST COLON EXAMINATION ?08/0 10/2003 ?? HISTORY: ??Follow-up incomplete colonosc opy. ? FINDINGS: ??The patient is asymptomatic. ??The entire colon is loaded with barium contrast and distended with air. ??Films are obtained in multiple projections to ensure optimal v isualization of all colonic surfaces. ??Because of the patient's lar ge size visualization is compromised. ??The prone rectal view is underpenetrated. ??Overall visualization of colonic loops is consid ered satisfactory. ??There is no evidence of diverticula. ??There is m oderate redundancy throughout the colon. ??Mucosal pattern is normal. ??There is no intrinsic or extrinsic mass. ?? CONCLUSION: ?? Overall redundant colon with no specific abnormalities identified. ?? Vandana Gorman MD [facility] documented in this encounter Visit Diagnoses Not on filedocumented in this encounter
--- OUTSIDE RECORDS SUMMARY | 2022-06-15 13:34 | XMS_ITS | Encounter Summary ---
:1945 Author Organization [place] Address [address] [place] [address] Care Team Providers Name Role Phone Unavailable Primary Care Provider Unavailable Reason for Visit Reason Onset Date Comments INR Form 03/12/2004 1.9 Encounter Details Date Type Department Care Team Description 03/12/[address] [facility] Collette Esparza, Mari Sifuentes MD INR Form (1.9) [address] [facility] [place] [address] [facility] [address] [phone] [place] [address] (Wo rk) Social History Tobacco [...] this encounter Miscellaneous Notes Telephone Encounter - 03/12/2004 1:26 PM CDT >> GABBIE OJEDA MonMar 12, 2004 5:03 PM Message left with instructions per patient request.Herbert Ojeda RN >> MARYBETH NETTLES MonMar 12, 2004 1:31 PM To AF to review. Marybeth Nettles RN documented in this encounter Plan of Treatment Upcoming Encounters Date Type Specialty Care Team Description 11/15/2022 Virtual Visit Pharm D Haylie Cheung, [facility] [address] [place] [address] (Wo rk) 11/15/2022 Virtual Visit IM/Peds Yane Barraza MD [address] [facility] [place] [address] (Wo rk) 03/03/2023 Virtual Visit Neurology Erlinda Barber MD 420 [facility] 295 [place], [place] [id number] (Wo rk) documented as of this encounter Visit Diagnoses Not on filedocumented in this encounter
--- OUTSIDE RECORDS SUMMARY | 2022-06-15 13:34 | XMS_ITS | Encounter Summary ---
:1945 Author Organization [facility] Address [address] [place] [address] Care Team Providers Name Role Phone Unavailable Primary Care Provider Unavailable Encounter Details Date Type Department Care Team Description 02/03/2004 Orders Only [facility] Eag an AFTERCARE WASTE MACHINE OPERATOR [address] [employer] ANTICOAG USE (Primary Dx) [place] [phone] [...] Visit Haylie Wakefield, [facility] [address] [place], [place] [phone] (Wo rk) 11/15/2022 Virtual Visit IM/Peds Yane Barraza MD [address] [facility] [address] [facility] [place] [address] (Wo rk) 03/03/2023 Virtual Visit Neurology Erlinda Barber MD 420 [facility] 295 [place] [address] (Wo rk) documented as of this encounter Procedures Procedure Name Priority Date/Time Associated Comments Diagnosis CL AFF PROTHROMBIN Routine 02/03/2004 10:[address] m Results for this TIME AM CDT Anticoag Use procedure are i n the results section. documented in this encounter Results (ABNORMAL) PROTHROMBIN TIME (02/03/2004 10:31 AM CDT) P athologist Signature INR 1.80 (H) 0.86 - 1.14 [facility] Specimen Anatomical Collection Method Collection Time Receive d Time (Source) Location / / Volume Laterality 02/03/2004 10:31 02/03/2004 AM CDT 10:34 AM CDT Mari Esparza MD LABORATORY Performing Organization Address City/State/ZIP Code Phon e Number [facility] [address] [facility] [place] [address] [facility] documented in this encounter Visit Diagnoses Diagnosis penitentiary (current) use of anticoagulant s - Primary Long-term (current) use of anticoagulant s documented in this encounter
--- OUTSIDE RECORDS SUMMARY | 2022-06-15 13:34 | XMS_ITS | Encounter Summary ---
:1945 Author Organization [facility] Address [address] [place] [address] Care Team Providers Name Role Phone Unavailable Primary Care Provider Unavailable Reason for Visit Reason Comments Flu Shot Encounter Details Date Type Department Care Team Description 05/27/2004 [facility] Eag an Flu Shot Visit 1440 [facility] [place] [phone] Social History [...] PM CDT documented as of this encounter Nursing Notes 05/27/2004 3:15 PM CST >> GABBIE GUALLPA 05/27/2004 2:50 pm A. Any history of hypersensitivity (allergy) to chicken, chicken eggs, chicken feathers, dander? NO B. Have you ever been paralyzed by Guillan- Newport Syndrome? NO C. Are you ill or have a fever? NO D. Any allergy to thimerosal (contact lens solution) or merthiolate? NO E. ? NO F. ? NO Greather than 14 weeks? G. Any history of adverse reaction to a previous influenza vaccine? NO Gabbie Guallpa ma documented in this encounter Plan of Treatment Upcoming Encounters Date Type Specialty Care Team Description 11/15/2022 Virtual Visit Pharm Haylie Gonzalez, [facility] [address] [facility] [place] [address] (Wo rk) 11/15/2022 Virtual Visit IM/Peds Yane Barraza MD [address] [facility] [place] [address] (Wo rk) 03/03/2023 Virtual Visit Neurology Erlinda Barber MD 420 [facility] 295 [place] [address] (Wo rk) documented as of this encounter Visit Diagnoses Diagnosis Need for prophylactic vaccination and in oculation against influenza documented in this encounter
--- OUTSIDE RECORDS SUMMARY | 2022-06-15 13:34 | XMS_ITS | Encounter Summary ---
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 [place] [phone] BIM [phone] [facility] KJ [place] [phone] Social History Tobacco Use Types Packs/Day Years [...] Sign Reading Time Taken Comments Blood Pressure 110/72 04/26/2004 4:09 PM CDT Pulse 82 04/26/2004 4:09 PM CDT Temperature - - Respiratory Rate - - Oxygen Saturation - - Inhaled Oxygen Concentration - - Weight - - Height - - Body Mass Index - - documented in this encounter Progress Notes 04/26/2004 3:45 PM CDT c/o room spinning at times. not with change in position. present for 3-4 times in the last 2 months. lasts for a few seconds and goes away. no nausea. always seems to happen when she is lying flat or sitting not with rising. no headaches. no weakness, no numbness or tingling. no tinnitus no uri symptoms recently. is on zyrtec D due to post nasal gtt and skin issues was the primary reason for it in the first place. has been on zyrtec D for months. Due to have her INR checked. Exam: BP 110/72 Pulse 82 LMP Postmenopausal Neuro: Cranial nerves normal. XAVI. EOM's intact. no nystagmus Neck supple. No bruits. Normal deeptendon reflexes. TM's clear with mild amount of clear fluid CV: RRR no MRG gait normal, negative romberg Nasal turbinates pale and boggy a/p: 386.30 LABYRINTHITIS NOS (primary encounter diagnosis) Note: likely due to some middle ear fluid due to allergies Plan: NASACORT AQ 55 MCG/ACT NA AERS trial of nasacort and continue zyrtec/use more regularly V58.61 AFTERCARE MCC ANTICOAG USE Note: routine check of PT today Plan: PROTHROMBIN TIME documented in this encounter Nursing Notes 04/26/2004 3:45 PM CDT >> LUIS A LAZARO 04/26/2004 4:11 pm Charlette Brush presents for BP, and for med check she has been having slight vertigo. Initial BP 110/72 Pulse 82 LMP Postmenopausal. BP completed using cuff size: X-large. Luis A Lazaro MA documented in this encounter Plan of Treatment Upcoming Encounters Date Type Specialty Care Team Description 11/15/2022 Virtual Visit Haylie [place], [facility] [address] [place] [address] (Wo rk) 11/15/2022 Virtual Visit IM/Peds Yane Barraza MD [address] [facility] [place] [address] (Wo rk) 03/03/2023 Virtual Visit Neurology Erlinda Barber MD [address] [facility] [facility] [address] [place] [address] (Lena rk) documented as of this encounter Procedures Procedure Name Priority Date/Time Associated Comments Diagnosis CL AFF PROTHROMBIN Routine 04/26/2004 4:41 PM Aftercare Long T erm Results for this TIME CDT Anticoag Use procedure are i n the results section. documented in this encounter Results (ABNORMAL) PROTHROMBIN TIME (04/26/2004 4:41 PM CDT) P athologist Signature INR 2.30 (H) 0.86 - 1.14 [facility] Specimen Anatomical Collection Method Collection Time Receive d Time (Source) Location / / Volume Laterality 04/26/2004 4:41 PM 4 4:44 CDT PM CDT Mari Esparza MD LABORATORY Performing Organization Address City/State/ZIP Code Phon e Number [facility] 14[address] [facility] [place] [address] [facility] documented in this encounter Visit Diagnoses Diagnosis Labyrinthitis, unspecified - Primary dispensing operator (current) use of anticoagulant s Long-term (current) use of anticoagulant s documented in this encounter
--- OUTSIDE RECORDS SUMMARY | 2022-06-15 13:34 | XMS_ITS | Encounter Summary ---
:1945 Author Organization [place] Address [address] [place] [address] Care Team Providers Name Role Phone Unavailable Primary Care Provider Unavailable Reason for Visit Reason Onset Date Comments INR Form 04/26/2004 Encounter Details Date Type Department Care Team Description 04/26/2004 Telephone [facility] Mari Beard MD INR Form 1440 [facility] [place] [phone] [address] [phone] [place] [address] (Wo rk) Social History Tobacco [...] this encounter Miscellaneous Notes Telephone Encounter - 04/26/2004 4:49 PM CDT >> MARI VERGARA Mon Apr 26, 2004 5:26 PM discussed with pt >> MATY JERRY Mon Apr 26, 2004 4:51 PM INR 2.30. AF to discuss with pt at OV. Maty Jerry RN documented in this encounter Plan of Treatment Upcoming Encounters Date Type Specialty Care Team Description 11/15/2022 Virtual Visit Pharm D Haylie Cheung, [facility] [address] [place] [address] (Wo rk) 11/15/2022 Virtual Visit IM/Peds Yane Barraza MD [address] [facility] [place] [address] (Wo rk) 03/03/2023 Virtual Visit Neurology Erlinda Barber MD [address] [facility] 295 [place] [address] (Wo rk) documented as of this encounter Visit Diagnoses Not on filedocumented in this encounter
--- OUTSIDE RECORDS SUMMARY | 2022-06-15 13:34 | XMS_ITS | Encounter Summary ---
:1945 Author Organization [place] Address [address] [place] [address] Care Team Providers Name Role Phone Unavailable Primary Care Provider Unavailable Reason for Visit Reason Comments INR Form Encounter Details Date Type Department Care Team Description 12/02/2003 Telephone [facility] Mari Beard MD INR Form 1440 [facility] [place] [phone] [address] [phone] [place] [address] (Wo rk) Social History Tobacco [...] this encounter Miscellaneous Notes Telephone Encounter - 12/02/2003 11:59 PM CDT >> MATY Malhotrabarrett December 02, 2003 5:32 PM Pt informed to stay on same dose of coumadin and return in 4wks for LO appt. Maty Murphy, RN >> NADEEN Vogt December 02, 2003 3:35 PM >> CALL RECEIVED. Contact: Dr. Esparza out of office. To Dr. Barraza for eval.Nadeen Powell RN documented in this encounter Plan of Treatment Upcoming Encounters Date Type Specialty Care Team Description 11/15/2022 Virtual Visit Pharm D Haylie Cheung, [facility] [address] [place] [address] (Wo rk) 11/15/2022 Virtual Visit IM/Peds Yane Barraza MD [address] [place] [address] (Wo rk) 03/03/2023 Virtual Visit Neurology Erlinda Barber MD 420 [facility] 295 [place] [address] (Wo rk) documented as of this encounter Visit Diagnoses Not on filedocumented in this encounter
--- OUTSIDE RECORDS SUMMARY | 2022-06-15 13:34 | XMS_ITS | Encounter Summary ---
:1945 Author Organization [place] Address [address] [place] [address] Care Team Providers Name Role Phone Unavailable Primary Care Provider Unavailable Reason for Visit Reason Onset Date Comments Refill Request 05/17/2004 [facility] Velma Encounter Details Date Type Department Care Team Description 05/17/2004 Refill [facility] Mari Beard MD Refill Request (Zte [address] 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 SILVERER >> GABBIE OJEDA Mon May 17, 2004 1:50 PM Refilled till 10/19 when due for physical.Herbert Ojeda RN documented in this encounter Plan of Treatment Upcoming Encounters Date Type Specialty Care Team Description 11/15/2022 Virtual Visit Pharm D Haylie Cheung, [facility] [address] [facility] [place] [address] (Wo rk) 11/15/2022 Virtual Visit IM/Peds Yane Barraza MD [address] [facility] [place] [address] (Wo rk) 03/03/2023 Virtual Visit Neurology Erlinda Barber MD 420 [facility] 295 [place] [address] (Wo rk) documented as of this encounter Visit Diagnoses Not on filedocumented in this encounter
--- OUTSIDE RECORDS SUMMARY | 2022-06-15 13:34 | XMS_ITS | Encounter Summary ---
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 [address] [employer] ANTICOAG USE (Primary Dx) [place] [phone] [...] 11/15/2022 Virtual Visit Haylie [place], [facility] [address] [facility] [facility] [address] [place], [place] [id number] (Wo rk) 11/15/2022 Virtual Visit IM/Peds Yane Barraza MD [address] [facility] K [facility] [place] [address] (Wo rk) 03/03/2023 Virtual Visit Neurology Erlinda Barber MD 420 [facility] 295 [place] [address] (Wo rk) documented as of this encounter Procedures Procedure Name Priority Date/Time Associated Comments Diagnosis CL AFF PROTHROMBIN Routine 01/05/2004 11:[address] m Results for this TIME AM CDT Anticoag Use procedure are i n the results section. documented in this encounter Results (ABNORMAL) PROTHROMBIN TIME (01/05/2004 11:04 AM CDT) P athologist Signature INR 2.60 (H) 0.86 - 1.14 [facility] Specimen Anatomical Collection Method Collection Time Receive d Time (Source) Location / / Volume Laterality 01/05/2004 11:04 01/05/2004 AM CDT 11:09 AM CDT Mari Esparza MD LABORATORY Performing Organization Address City/State/ZIP Code Phon e Number [facility] 14[address] [facility] [place] [address] [facility] documented in this encounter Visit Diagnoses Diagnosis 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
--- OUTSIDE RECORDS SUMMARY | 2022-06-15 13:34 | XMS_ITS | Encounter Summary ---
:1945 Author Organization [facility] Address [address] [place] [address] Care Team Providers Name Role Phone Unavailable Primary Care Provider Unavailable Encounter Details Date Type Department Care Team Description 02/13/2004 Orders Only [facility] Mari Esparza, DIAGN YENNY NOT YET [place] PATEL DEFINED (Primary Dx) 1440 [facility] [place] [address] [place] [phone] [facility] [place] [phone] (Wo rk) Social History Tobacco Use Types [...] Cheung, [facility] [address] [facility] [place] [address] (Wo rk) 11/15/2022 Virtual Visit IM/Peds Yane Barraza MD [address] [facility] [address] [place], [place] [id number] (Wo rk) 03/03/2023 Virtual Visit Neurology Erlinda Barber MD 420 [facility] 295 [place] [address] (Wo rk) documented as of this encounter Procedures Procedure Name Priority Date/Time Associated Diagnosis Comme nts ZZHC COLONOSCOPY THRU STOMA, Routine 02/13/2004 DIAGNOSIS NO T YET DEFINED DIAGNOSTIC documented in this encounter Results COLONOSCOPY (02/13/2004) Specimen (Source) Anatomical Location Collection Method / Collectio n Time Received Time / Laterality Volume 02/13/2004 Narrative This result has an attachment that is no t available. Mari Esparza MD PROCEDURES documented in this encounter Visit Diagnoses Diagnosis DIAGNOSIS NOT YET DEFINED - Primary documented in this encounter
--- OUTSIDE RECORDS SUMMARY | 2022-06-15 13:34 | XMS_ITS | Encounter Summary ---
:1945 Author Organization [place] Address [address] [place] [address] Care Team Providers Name Role Phone Unavailable Primary Care Provider Unavailable Reason for Visit Reason Comments Blood Draw Encounter Details Date Type Department Care Team Description 03/12/2004 Orders Only [facility] Eag an AFTERCARE CONFERENCE CONCIERGE [address] [employer] ANTICOAG USE [place] [address] Social History [...] Visit Haylie [place], [facility] [address] [place] [address] (Wo rk) 11/15/2022 Virtual Visit IM/Peds Yane Barraza MD [address] [facility] K [facility] [place] [address] (Wo rk) 03/03/2023 Virtual Visit Neurology Erlinda Barber MD 420 [facility] 295 [place] [address] (Wo rk) documented as of this encounter Procedures Procedure Name Priority Date/Time Associated Comments Diagnosis CL AFF PROTHROMBIN Routine 03/12/2004 1:01 PM Aftercare Long T erm Results for this TIME CDT Anticoag Use procedure are i n the results section. documented in this encounter Results (ABNORMAL) PROTHROMBIN TIME (03/12/2004 1:01 PM CDT) P athologist Signature INR 1.90 (H) 0.86 - 1.14 [facility] Specimen Anatomical Collection Method Collection Time Receive d Time (Source) Location / / Volume Laterality 03/12/2004 1:01 PM 4 1:04 CDT PM CDT Mari Esparza MD LABORATORY Performing Organization Address City/State/ZIP Code Phon e Number [facility] [address] 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
--- OUTSIDE RECORDS SUMMARY | 2022-06-15 13:34 | XMS_ITS | Encounter Summary ---
:1945 Author Organization [place] Address [address] [place] [address] Care Team Providers Name Role Phone Unavailable Primary Care Provider Unavailable Reason for Visit Reason Onset Date Comments INR RESULTS 07/29/2004 Encounter Details Date Type Department Care Team Description 07/29/2004 Telephone [facility] Collette Esparza, Xu Sifuentes MD INR RESULTS 1440 [facility] [place] [address] [address] [phone] [place] [address] (Wo rk) Social History Tobacco [...] this encounter Miscellaneous Notes Telephone Encounter - 07/29/2004 12:05 PM HOME COMPANION >> MATY JERRY [facility] Jul 29, 2004 3:52 PM LM for pt to stay on current coumadin dose and RTC in 4wks for next INR. Maty Jerry, RN >> XU ESPARZA [facility] Jul 29, 2004 3:15 PM continue current dose and recheck in 4 weeks >> MATY JERRY [facility] Jul 29, 2004 12:09 PM INR 1.80. Lab unable to get result to correct Result box today so I cannot get result on flowsheet. 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
--- OUTSIDE RECORDS SUMMARY | 2022-06-15 13:34 | XMS_ITS | Encounter Summary ---
:1945 Author Organization [place] Address [address] [place] [address] Care Team Providers Name Role Phone Unavailable Primary Care Provider Unavailable Reason for Visit Reason Comments INR Form Encounter Details Date Type Department Care Team Description 02/03/2004 Telephone [facility] Xu Beard MD INR Form [address] [facility] [place] [phone] [address] [phone] [place] [address] (Wo rk) Social History Tobacco [...] this encounter Miscellaneous Notes Telephone Encounter - 02/03/2004 11:59 PM CDT >> MATY CLARITZA MonFeb 03, 2004 4:49 PM Pt aware. Maty Jerry RN >> MATY JERRY MonFeb 03, 2004 2:00 PM LM that pt should cont. current dose of coumadin - knowing that she will be stopping med on the 08 of February for colonoscopy on the . She will restart coumadin again at same dose and return in 2wks after restarting med for INR. Maty Jerry RN >> XU ESPARZA MonFeb 03, 2004 11:37 AM see sheet, same dose for now, need to recheck 2 weeks after she restarts coumadin after her procedure. Xu Esparza M.D. >> NADEEN POWELL MonFeb 03, 2004 11:07 AM >> CALL RECEIVED. Contact: Pt will be having a colonoscopy done on 02/13/04 and she will be stopping her coumadin on 02/09/04 for this procedure. Nadeen Powell RN documented in this encounter Plan of Treatment Upcoming Encounters Date Type Specialty Care Team Description 11/15/2022 Virtual Visit Pharm D Haylie Cheung, [facility] [address] [facility] [place] [address] (Wo rk) 11/15/2022 Virtual Visit [place] [address] [place] [address] [place] [id number] (Wo rk) 03/03/2023 Virtual Visit Neurology Erlinda Barber MD 420 [facility] 295 [place] [address] (Wo rk) documented as of this encounter Visit Diagnoses Not on filedocumented in this encounter
--- OUTSIDE RECORDS SUMMARY | 2022-06-15 13:34 | XMS_ITS | Encounter Summary ---
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 [address] [employer] ANTICOAG USE [place] [phone] Social [...] Virtual Visit Haylie [place], [facility] [address] [place] [address] (Wo rk) 11/15/2022 Virtual Visit IM/Peds Yane Barraza MD [address] [facility] K [facility] [place] [address] (Wo rk) 03/03/2023 Virtual Visit Neurology Erlinda [place] MD 420 [facility] 295 [place] [address] (Wo rk) documented as of this encounter Procedures Procedure Name Priority Date/Time Associated Comments Diagnosis CL AFF PROTHROMBIN Routine 07/29/2004 10:[address] m Results for this TIME AM APPEALS OFFICER Anticoag Use procedure are i n the results section. 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
--- OUTSIDE RECORDS SUMMARY | 2022-06-15 13:34 | XMS_ITS | Encounter Summary ---
:1945 Author Organization [place] Address [address] [place] [address] Care Team Providers Name Role Phone Unavailable Primary Care Provider Unavailable Reason for Visit Reason Onset Date Comments INR Form 05/27/2004 Encounter Details Date Type Department Care Team Description 05/27/2004 Telephone [facility] Mari [place] MD INR Form 1440 [facility] [place] [address] [address] [phone] [place] [address] (Wo rk) Social History Tobacco [...] this encounter Miscellaneous Notes Telephone Encounter - 05/27/2004 3:13 PM CHRISTIAN COUNSELOR >> MATY JERRY Deepali May 27, 2004 6:27 PM LM that pt to stay on same dose of coumadin and come back in 4wks for next INR. Maty Jerry, RN >> MATY Palumbo May 27, 2004 3:22 PM INR 2.0. Maty Jerry RN documented in this encounter Plan of Treatment Upcoming Encounters Date Type Specialty Care Team Description 11/15/2022 Virtual Visit Pharm D Haylie Cheung, [facility] [address] [place] [address] (Wo rk) 11/15/2022 Virtual Visit IM/Peds Yane Barraza MD [address] [facility] [place] [address] (Wo rk) 03/03/2023 Virtual Visit Neurology Erlinda Barber MD [address] [facility] 295 [place] [address] (Wo rk) documented as of this encounter Visit Diagnoses Not on filedocumented in this encounter
--- OUTSIDE RECORDS SUMMARY | 2022-06-15 13:34 | XMS_ITS | Encounter Summary ---
:1945 Author Organization [place] Address [address] [place] [address] Care Team Providers Name Role Phone Unavailable Primary Care Provider Unavailable Reason for Visit Reason Comments Blood Draw Encounter Details Date Type Department Care Team Description 03/30/2004 Orders Only [facility] Eag an AFTERCARE KITCHEN PORTER [address] [employer] ANTICOAG USE [place] [phone] Social History [...] Haylie [place], [facility] [address] [place] [address] (Wo rk) 11/15/2022 Virtual Visit IM/Peds Yane Barraza MD [address] [facility] [facility] [address] [facility] [place] [address] (Wo rk) 03/03/2023 Virtual Visit Neurology Erlinda [place] MD 420 [facility] 295 [place] [address] (Wo rk) documented as of this encounter Procedures Procedure Name Priority Date/Time Associated Comments Diagnosis CL AFF PROTHROMBIN Routine 03/30/2004 12:[address] m Results for this TIME PM CDT Anticoag Use procedure are i n the results section. documented in this encounter Results (ABNORMAL) PROTHROMBIN TIME (03/30/2004 12:09 PM CDT) P athologist Signature INR 2.00 (H) 0.86 - 1.14 [facility] Specimen Anatomical Collection Method Collection Time Receive d Time (Source) Location / / Volume Laterality 03/30/2004 12:09 03/30/2004 PM CDT 12:12 PM CDT Mari Esparza MD LABORATORY Performing Organization Address City/State/ZIP Code Phon e Number [place] [phone] 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
--- OUTSIDE RECORDS SUMMARY | 2022-06-15 13:34 | XMS_ITS | Encounter Summary ---
:1945 Author Organization [place] Address [address] [place] [address] Care Team Providers Name Role Phone Unavailable Primary Care Provider Unavailable Reason for Visit Reason Onset Date Comments INR RESULTS 06/22/2004 Encounter Details Date Type Department Care Team Description 06/22/[address] [facility] Collette Esparza, Mari Sifuentes MD INR RESULTS 1440 [facility] [place] [address] [address] [phone] [place] [address] (Wo rk) Social History Tobacco [...] this encounter Miscellaneous Notes Telephone Encounter - 06/22/2004 4:49 PM NURSE SANE >> NADEEN Hazel Jun 23, 2004 9:29 AM L.M. per Pt permmission to continue on same dose and recheck in 4 weeks.Nadeen Powell RN >> MATY Vogt Jun 22, 2004 4:51 PM INR 2.00. Maty Murphy RN documented in this encounter Plan of Treatment Upcoming Encounters Date Type Specialty Care Team Description 11/15/2022 Virtual Visit Pharm D Haylie Cheung, [facility] [address] [facility] [place] [address] (Wo rk) 11/15/2022 Virtual Visit IM/Peds Yane Barraza MD 3[address] [facility] [place] [address] (Wo rk) 03/03/2023 Virtual Visit Neurology Erlinda [place] MD 420 [facility] 295 [place] [address] (Wo rk) documented as of this encounter Visit Diagnoses Diagnosis snf (current) use of anticoagulant s - Primary Long-term (current) use of anticoagulant s documented in this encounter
--- OUTSIDE RECORDS SUMMARY | 2022-06-15 13:34 | XMS_ITS | Encounter Summary ---
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 [address] [employer] ANTICOAG USE [place] [phone] Social History [...] Haylie Wakefield, [facility] [address] [place] [address] (Wo rk) 11/15/2022 Virtual Visit IM/Peds Yane Barraza MD [address] [facility] [address] [facility] [place] [address] (Wo rk) 03/03/2023 Virtual Visit Neurology Erlinda Barber MD [address] [facility] 295 [place] [address] (Wo rk) documented as of this encounter Procedures Procedure Name Priority Date/Time Associated Comments Diagnosis CL AFF PROTHROMBIN Routine 05/27/2004 2:27 PM Aftercare Long T erm Results for this TIME FOOT DOCTOR Anticoag Use procedure are i n the results section. 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
--- OUTSIDE RECORDS SUMMARY | 2022-06-15 13:34 | XMS_ITS | Encounter Summary ---
:1945 Author Organization [place] Address [address] [place] [address] Care Team Providers Name Role Phone Unavailable Primary Care Provider Unavailable Reason for Visit Reason Comments INR Form Encounter Details Date Type Department Care Team Description 02/27/2004 Telephone [facility] ([facility] Mari Beard MD INR Form [address] [facility] [place] [id number] [address] [phone] [place] [address] (Wo rk) Social History Tobacco [...] this encounter Miscellaneous Notes Telephone Encounter - 02/27/2004 11:59 PM CDT >> GABBIE Richardson Feb 27, 2004 4:36 PM Per verbal instruction of Dr Esparza, patient to stay on same dose one more week. Has restarted coumad in after being off for procedure, don't want to overcorrect. Will return in one week, and adjust the n if still low. Message left at home number per patient request. Herbert Ojeda RN >> GABBIE OJEDA MonFeb 27, 2004 3:26 PM >> CALL RECEIVED. Contact: documented in this encounter Plan of Treatment Upcoming Encounters Date Type Specialty Care Team Description 11/15/2022 Virtual Visit Pharm D Haylie Cheung, [facility] [address] [facility] [place] [address] (Wo rk) 11/15/2022 Virtual Visit IM/Peds Yane Barraza MD [address] [facility] [place] [address] (Wo rk) 03/03/2023 Virtual Visit Neurology Erlinda Barber MD [address] [facility] 295 [place] [address] (Wo rk) documented as of this encounter Visit Diagnoses Not on filedocumented in this encounter
--- OUTSIDE RECORDS SUMMARY | 2022-06-15 13:34 | XMS_ITS | Encounter Summary ---
:1945 Author Organization [place] Address [address] [place] [address] Care Team Providers Name Role Phone Unavailable Primary Care Provider Unavailable Reason for Visit Reason Onset Date Comments INR Form 03/30/2004 Encounter Details Date Type Department Care Team Description 03/30/2004 Telephone [facility] Mari Beard MD INR Form 1440 [facility] [place] [phone] [address] [phone] [place] [address] (Wo rk) Social History Tobacco [...] this encounter Miscellaneous Notes Telephone Encounter - 03/30/2004 12:55 PM CDT >> GABBIE Hazel Mar 31, 2004 8:50 AM Patient notified of instructions and follow up.Herbert Gale RN >> MATY Vogt Mar 30, 2004 12:57 PM INR 2.0. documented in this encounter Plan of Treatment Upcoming Encounters Date Type Specialty Care Team Description 11/15/2022 Virtual Visit Pharm D Haylie Cheung, [facility] [address] [facility] [place] [address] (Wo rk) 11/15/2022 Virtual Visit IM/Peds Yane Barraza MD [address] [facility] [place] [address] (Wo rk) 03/03/2023 Virtual Visit Neurology Erlinda Barber MD [address] [facility] 295 [place] [address] (Wo rk) documented as of this encounter Visit Diagnoses Not on filedocumented in this encounter
--- OUTSIDE RECORDS SUMMARY | 2022-06-15 13:34 | XMS_ITS | Encounter Summary ---
:1945 Author Organization [place] Address [address] [place] [address] Care Team Providers Name Role Phone Unavailable Primary Care Provider Unavailable Reason for Visit Reason Comments Medication Question Coumadin Encounter Details Date Type Department Care Team Description 02/16/2004 Telephone [facility] Xu Beard, Medication Question [address] [facility] Preet PATEL (Coumadin) [place] [phone] AYLA COOK [phone] [address] [place] [address] (Wo rk) Social [...] this encounter Miscellaneous Notes Telephone Encounter - 02/16/2004 11:59 PM CDT >> XU ESPARZA MonFeb 16, 2004 2:47 PM discussed questions with pt. Called [facility] Radiology-pt does not need to hold coumadin for air contrast BE. Will continue current dose of coumadin and recheck inr this monday 1 week on normal dosage. Xu Esparza M.D. >> XU ESPARZA MonFeb 16, 2004 1:55 PM tried to call pt, left message for her to call back. told her to ask for Qing to figure out what her question is about her coumadin. >> QING SALINAS MonFeb 16, 2004 10:53 AM >> CALL RECEIVED. Contact: AKF >> QING SALINAS MonFeb 16, 2004 10:52 AM Staff Message copied by QING SALINAS on 02/16/2004 at 10:52 AM ------ Message from: ROHIT SPIVEY Created: 02/16/2004 at 8:41 AM Regarding: af please call charlette at [phone] has question regarding her coumidan medication documented in this encounter Plan of Treatment Upcoming Encounters Date Type Specialty Care Team Description 11/15/2022 Virtual Visit Pharm D Haylie Cheung, [facility] [address] [facility] [place] [address] (Wo winter) 11/15/2022 Virtual Visit [place] [address] [place] [address] [place] [address] (Wo rk) 03/03/2023 Virtual Visit Neurology Erlinda Barber MD [address] [facility] 295 [place] [address] (Wo rk) documented as of this encounter Visit Diagnoses Not on filedocumented in this encounter
--- OUTSIDE RECORDS SUMMARY | 2022-06-15 13:34 | XMS_ITS | Encounter Summary ---
:1945 Author Organization [place] Address [address] [place] [address] Care Team Providers Name Role Phone Unavailable Primary Care Provider Unavailable Reason for Visit Reason Comments INR Form Encounter Details Date Type Department Care Team Description 01/05/2004 Telephone [facility] Mari Beard MD INR Form 1440 [facility] [place] [phone] [address] [phone] [place] [address] (Wo rk) Social History Tobacco [...] this encounter Miscellaneous Notes Telephone Encounter - 01/05/2004 11:59 PM CDT >> GABBIE Burch Jan 05, 2004 12:52 PM Patient notified of instructions and follow up.Herbert Gale RN >> IAN PENN MonJan 05, 2004 11:21 AM >> CALL RECEIVED. Contact: INR = 2.[address] Esparza. Alee Penn RN documented in this encounter Plan of Treatment Upcoming Encounters Date Type Specialty Care Team Description 11/15/2022 Virtual Visit Pharm D Haylie Cheung, [facility] [address] [facility] [place] [address] (Wo rk) 11/15/2022 Virtual Visit IM/Peds Yane Barraza MD [address] [facility] [place] [address] (Wo rk) 03/03/2023 Virtual Visit Neurology Erlinda Barber MD [address] [facility] 295 [place] [address] (Wo rk) documented as of this encounter Visit Diagnoses Not on filedocumented in this encounter
--- OUTSIDE RECORDS SUMMARY | 2022-06-15 13:34 | XMS_ITS | Encounter Summary ---
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 ANTICOAG USE; [address] [employer] ROUTINE MEDICAL EXAM; [place] [phone] JAS[place] BENIGN HYPERTENSION [phone] [address] [place] [address] Social History Tobacco Use Types Packs/Day [...] Reading Time Taken Comments Blood Pressure 124/80 08/27/2004 1:55 PM CUSTOMER SALES SERVICE MANAGER Pulse - - Temperature - - Respiratory Rate - - Oxygen Saturation - - Inhaled Oxygen Concentration - - Weight 165.6 kg (365 lb) 08/27/2004 1:55 PM CUSTOMER SALES SERVICE MANAGER Height 168.9 cm (5' 6.5) 08/27/2004 1:55 PM CUSTOMER SALES SERVICE MANAGER Body Mass Index 58.03 08/27/2004 1:55 PM CUSTOMER SALES SERVICE MANAGER documented in this encounter Progress Notes 08/27/2004 1:30 PM CUSTOMER SALES SERVICE MANAGER HEALTH CARE MAINTENANCE: Pap smear in the last year? Yes - date: 11/04/03 nl Ever had an abnormal pap? Yes - date: 8-9 years ago Mammogram in the last year? Yes - date: 11/25/03 neg Have you had colon cancer screening in the last 5 years? Yes - date: 02/13/04 Have you had a DEXA scan? Yes - date: 2001 Tetanus shot in the last 10 years? No Have you had a pneumonia shot? Not applicable How many dairy products do you eat daily? 3 Have you had an eye exam in the past year? NO SAFETY: ======= Do you exercise? YES If yes, how many times per week? 1 Do you feel safe in your relationship(s)? YES Do you have a gun in your home? No Do you wear your seatbelt regularly? YES Do you use sunscreen? YES Are you fasting today? No Qing Guy RN SUBJECTIVE: CC:Charlette Brush, a 59 year old female, presents for routine health maintenance exam but cannot lay flat today due to recent eply manauver at ENT and just now realizedthat pap is not due until october. LMP: No LMP date recorded. Reason: Postmenopausal. Contraception: none HPI: feeling better with vertigo, had paul maneuver, could not do MRI for some reason-they had to stop it and told her to do a CT if I wanted it. Patient Active Problem List: BENIGN HYPERTENSION[401.1] PULM EMBOLISM/INFARCT NOS[415.19] EDEMA[782.3] MORBID OBESITY[278.01] OTHER LYMPHEDEMA[457.1] Past Medical and Surgical Histories are reviewed and updated as noted in the Histories database. There are NO CHANGES Current prescriptions: ZYRTEC-D 5-120 MG OR TB12 1 TABLET TWICE DAILY NEEDED TRIAMTERENE-HCTZ 37.5-25 MG OR CAPS 1 CAPSULE DAILY ATENOLOL 25 MG OR TABS 1 TABLET DAILY COZAAR 50 MG OR TABS 1 TABLET DAILY COUMADIN 2.5 MG OR TABS 10 mg 3 days/wk 12.5 mg 4 days/wk COUMADIN 10 MG OR TABS 10 mg 3 days/wk 12.5 mg 4 days/wk HYDROCORTISONE (TOPICAL) 2.5 % EX OINT apply as needed TOPICORT 0.05 % EX GEL apply 3 times daily as needed below knees Review of the patient's allergies finds: Penicillins hives Cephalexin Keflex - hives Lanolin skin irritation Neomycin skin irritation Review of patient's family history indicates: C.A.D. Paternal Grandmother Diabetes No family hx of Hypertension Mother Hypertension Sister Stroke Maternal Grandmother Breast CA Paternal Aunt Comment: x3 Colon CA Sister Prostatic CA Father Thyroid Mother Social History Marital Status: Single Spouse Name: Years of Education: 17 Number of children: 1 Social History Main Topics Tobacco Use: Never Alcohol Use: No Drug Use: No Sexually Active: No EXAM: BP 124/80 Ht 5' 6.5 (1.69m) Wt 365 lbs (165.6kg) LMP Postmenopausal BMI = 58.03 GENERAL APPEARANCE:healthy,alert,no distress exam deferred ASSESSMENT/PLAN: V58.61 AFTERCARE HALF-WAY ANTICOAG USE Note: due for INR today, a little low last time Plan: PROTHROMBIN TIME V70.0 ROUTINE MEDICAL EXAM Note: will order fasting labs to be done with next inr check Plan: A.M.A. LIPID PANEL, A.M.A. COMPREHENSIVE MET.PANEL, TD IMMUNIZATION,IM/JET pt to RTC in October for physical 401.1 BENIGN HYPERTENSION Note: well controlled Plan: A.M.A. COMPREHENSIVE MET.PANEL, UA MICRO IF POSITIVE routine yearly labs at next lab draw documented in this encounter Plan of Treatment Upcoming Encounters Date Type Specialty Care Team Description 11/15/2022 Virtual Visit Pharm Haylie Gonzalez, [facility] [address] [facility] [place] [address] (Wo rk) 11/15/2022 Virtual Visit IM/Peds Yane Barraza MD [address] [facility] [place] [address] (Wo rk) 03/03/2023 Virtual Visit Neurology rElinda Barber MD [address] [facility] [address] [place] [address] (Lena max) documented as of this encounter Procedures Procedure Name Priority Date/Time Associated Comments Diagnosis CL AFF PROTHROMBIN Routine 08/27/2004 2:28 PM Aftercare Long T erm Results for this TIME CUSTOMER SALES SERVICE MANAGER Anticoag Use procedure are i n the results section. documented in this encounter Results (ABNORMAL) PROTHROMBIN TIME (08/27/2004 2:28 PM CUSTOMER SALES SERVICE MANAGER) P athologist Signature INR 2.00 (H) 0.86 - 1.14 [facility] Specimen Anatomical Collection Method Collection Time Receive d Time (Source) Location / / Volume Laterality 08/27/2004 2:28 PM 5 2:31 CUSTOMER SALES SERVICE MANAGER PM CUSTOMER SALES SERVICE MANAGER Mari Esparza MD LABORATORY Performing Organization Address City/State/ZIP Code Phon e Number [facility] [address] [place] [address] [facility] documented in this encounter Visit Diagnoses Diagnosis Labyrinthitis, unspecified - Primary snf (current) use of anticoagulant s Long-term (current) use of anticoagulant s Routine general medical examination at a health care facility BENIGN HYPERTENSION Essential hypertension, benign documented in this encounter
--- OUTSIDE RECORDS SUMMARY | 2022-06-15 13:35 | XMS_ITS | Encounter Summary ---
:1945 Author Organization [place] Address [address] [place] [address] Care Team Providers Name Role Phone Unavailable Primary Care Provider Unavailable Encounter Details Date Type Department Care Team Description 09/10/2003 Orders Only [facility] Eag an AFTERCARE BUSINESS DATA ANALYST [address] [employer] ANTICOAG USE (Primary Dx) [place] [phone] [...] Virtual Visit Haylie Wakefield, [facility] [address] [place], [place] [id number] (Wo rk) 11/15/2022 Virtual Visit IM/Peds Yane Barraza MD [address] [facility] K [facility] [place] [address] (Wo rk) 03/03/2023 Virtual Visit Neurology Erlinda Barber MD [address] [facility] [address] [place] [address] (Wo rk) documented as of this encounter Procedures Procedure Name Priority Date/Time Associated Comments Diagnosis CL AFF PROTHROMBIN Routine 09/10/2003 4:01 PM Aftercare Long T erm Results for this TIME HEAD IRRIGATOR Anticoag Use procedure are i n the results section. documented in this encounter Results (ABNORMAL) PROTHROMBIN TIME (09/10/2003 4:01 PM HEAD IRRIGATOR) P athologist Signature INR 3.30 (H) 0.86 - 1.14 [facility] Specimen Anatomical Collection Method Collection Time Receive d Time (Source) Location / / Volume Laterality 09/10/2003 4:01 PM 4:02 HEAD IRRIGATOR PM HEAD IRRIGATOR Mari Esparza MD LABORATORY Performing Organization Address City/State/ZIP Code Phon e Number [facility] [address] [facility] [place] [address] [facility] documented in this encounter Visit Diagnoses Diagnosis residential (current) use of anticoagulant s - Primary Long-term (current) use of anticoagulant s documented in this encounter
--- OUTSIDE RECORDS SUMMARY | 2022-06-15 13:35 | XMS_ITS | Encounter Summary ---
:1945 Author Organization [facility] Address [address] [place] [address] Care Team Providers Name Role Phone Unavailable Primary Care Provider Unavailable Encounter Details Date Type Department Care Team Description 12/02/2003 Orders Only [facility] Eag an AFTERCARE SHANK BONER [address] [employer] ANTICOAG USE (Primary Dx) [place] [phone] [...] Haylie Wakefield, [facility] [address] [place], [place] [address] (Wo rk) 11/15/2022 Virtual Visit IM/Peds Yane Barraza MD [address] [facility] [address] [facility] [place] [address] (Wo rk) 03/03/2023 Virtual Visit Neurology Erlinda Barber MD [address] [facility] 295 [place] [address] (Wo rk) documented as of this encounter Procedures Procedure Name Priority Date/Time Associated Comments Diagnosis CL AFF PROTHROMBIN Routine 12/02/2003 3:17 PM Aftercare Long T erm Results for this TIME CDT Anticoag Use procedure are i n the results section. documented in this encounter Results (ABNORMAL) PROTHROMBIN TIME (12/02/2003 3:17 PM CDT) P athologist Signature INR 2.30 (H) 0.86 - 1.14 [facility] Specimen Anatomical Collection Method Collection Time Receive d Time (Source) Location / / Volume Laterality 12/02/2003 3:17 PM 4 3:22 CDT PM CDT Mari Esparza MD LABORATORY Performing Organization Address City/State/ZIP Code Phon e Number [facility] [address] [facility] [place] [address] [facility] documented in this encounter Visit Diagnoses Diagnosis senior care (current) use of anticoagulant s - Primary Long-term (current) use of anticoagulant s documented in this encounter
--- OUTSIDE RECORDS SUMMARY | 2022-06-15 13:35 | XMS_ITS | Encounter Summary ---
:1945 Author Organization [place] Address [address] [place] [address] Care Team Providers Name Role Phone Unavailable Primary Care Provider Unavailable Reason for Visit Reason Comments INR Form Encounter Details Date Type Department Care Team Description 11/04/2003 Telephone [facility] Mari Beard MD INR Form 1440 [facility] [place] [phone] [address] [phone] [place] [address] (Wo rk) Social History Tobacco [...] this encounter Miscellaneous Notes Telephone Encounter - 11/04/2003 11:59 PM CDT Addended by: ABELINO SALINAS on: 11/04/2003,2:20 PM Modules accepted: Order Summary >> NADEEN Vogt Nov 04, 2003 1:37 PM L.M. on work # per Pt instructions. INR 2.50. Instructed to stay on the sa me dose ,12.5 mg T,TH,S,S and 10 mg M,W,F and to return in 4 weeks. Nadeen [place] RN >> NADEEN Vogt Nov 04, 2003 11:19 AM >> CALL RECEIVED. Contact: To Dr. Esparza for INR eval.Nadeen [place] RN documented in this encounter Plan of Treatment Upcoming Encounters Date Type Specialty Care Team Description 11/15/2022 Virtual Visit Pharm D Haylie Cheung, [facility] [address] [facility] [address] (Lena max) 11/15/2022 Virtual Visit IM/Peds Yane Barraza MD [address] [place] [address] (Lena max) 03/03/2023 Virtual Visit Neurology Erlinda Barber MD [address] 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
--- OUTSIDE RECORDS SUMMARY | 2022-06-15 13:35 | XMS_ITS | Encounter Summary ---
:1945 Author Organization [place] Address [address] [place] [address] Care Team Providers Name Role Phone Unavailable Primary Care Provider Unavailable Reason for Visit Reason Comments INR Form Encounter Details Date Type Department Care Team Description 09/24/2003 Telephone [facility] Mari Beard MD INR Form [address] [facility] [place] [address] [address] [phone] [place] [address] (Wo rk) Social History Tobacco [...] this encounter Miscellaneous Notes Telephone Encounter - 09/24/2003 11:59 PM DIRECTOR FEDERAL >> AYANNA REYES Wed Sep 24, 2003 3:30 PM Pt contacted and understands instructions. Prasanth Reyes RN >> IAN PENN MonSep 24, 2003 10:37 AM >> CALL RECEIVED. Contact: INR = 2.20 documented in this encounter Plan of Treatment Upcoming Encounters Date Type Specialty Care Team Description 11/15/2022 Virtual Visit Pharm D Haylie Cheung, [facility] 1440 [facility] [place] [address] (Wo winter) 11/15/2022 Virtual Visit IM/Peds Yane Barraza MD [address] [facility] [place] [address] (Wo winter) 03/03/2023 Virtual Visit Neurology Erlinda Barber MD 420 [facility] 295 [place] [address] (Lena max) documented as of this encounter Visit Diagnoses Not on filedocumented in this encounter
--- OUTSIDE RECORDS SUMMARY | 2022-06-15 13:35 | XMS_ITS | Encounter Summary ---
:1945 Author Organization [facility] Address [address] [place] [address] Care Team Providers Name Role Phone Unavailable Primary Care Provider Unavailable Reason for Referral - Closed Specialty Diagnoses / Procedures Referred By Contact Refer red To Contact Diagnoses Contact dermatitis and other eczema, due to unspecified cause Mari Esparza MD [facility] [address] [place] [address] Referral ID Status Reason Start Date Expiration Date Visits Requ ested Visits Authorized [id number] Closed 07/30/2003 07/16/2011 1 1 ZE PLATER - Closed Specialty Diagnoses / Procedures Referred By Contact Refer red To Contact Diagnoses Edema Mari Esparza MD [facility] [address] [place] [address] Referral ID Status Reason Start Date Expiration Date Visits Requ ested Visits Authorized [id number] Closed 07/25/2003 07/16/2011 1 1 ZE PLATER Reason for Visit Reason Comments Establish Care Encounter Details Date Type Department Care Team Description 07/25/2003 Office Visit [facility] Mari Esparza, EDEMA (Primary Dx); Yarelis PATEL AFTERCARE CHUTE LOADER ANTICOAG USE; [address] AYLA COOK BENIGN HYPERTENSION; [place] [address] JASPER DERMATITIS NOS [phone] [place] [address] (Wo rk) Social History Tobacco Use Types [...] Reading Time Taken Comments Blood Pressure 120/80 07/25/2003 9:00 AM BRONZE PLATER Pulse 80 07/25/2003 9:00 AM BRONZE PLATER Temperature - - Respiratory Rate 16 07/25/2003 9:00 AM BRONZE PLATER Oxygen Saturation - - Inhaled Oxygen Concentration - - Weight 153.8 kg (339 lb) 07/25/2003 9:00 AM BRONZE PLATER Height 169.5 cm (5' 6.75) 07/25/2003 9:00 AM BRONZE PLATER Body Mass Index 53.49 07/25/2003 9:00 AM BRONZE PLATER documented in this encounter Progress Notes 07/25/2003 9:00 AM BRONZE PLATER SUBJECTIVE: Charlette Velma Brush, a 58 year old female scheduled an appointment to discuss the following is sues: EDEMA AFTERCARE CHUTE LOADER ANTICOAG USE BENIGN HYPERTENSION DERMATITIS NOS Medical, social, s urgical, and family histories reviewed. OBJECTIVE: ROS: C: NEGATIVE for fever, chills, change in we ight E/M: NEGATIVE for ear, mouth and throat problems R: NEGATIVE for significant cough or SOB RESP:P OSITIVE for snoring CV: NEGATIVE for chest pain, palpitations or but longstanding history of massive LE edema GI: NEGATIVE for nausea, abdominal pain, heartburn, or change in bowel habits. EXAM: BP 12 0/80 Ht 5' 6.75 (1.70m) Wt 339 lbs (153.8kg) GENERAL APPEARANCE: healthy, alert and no distress EYES: Eyes grossly normal to inspection, PERRL and conjunctivae and sclerae normal HENT: ear canals and TM's normal and nose and mouth without ulcers or lesions NECK: no adenopathy, no asymmetry, evelia s, or scars and thyroid normal to palpation NECK: no adenopathy, no asymmetry, masses, or scars, thyr oid normal to palpation and neck circumference 18 inches RESP: lungs clear to auscultation - no rales , rhonchi or wheezes CV: regular rates and rhythm, normal S1 S2, no S3 or S4 and no murmur, click or rub - MS: gait normal, massive woody edema to the knee and normal range of motion all extremities SKI N: erythema - ankles and lower legs c/w chronic venous stasis changes NEURO: Normal strength and tone , sensory exam grossly normal, mentation intact and speech normal PSYCH: mentation appears normal. an d affect normal/bright LYMPHATICS: No axillary, cervical, inguinal, or supraclavicular nodes. PLAN: 782.3 EDEMA (primary encounter diagnosis) Note: primarily due to chronic venous stasis I suspect. n eed to know cardiac function and pt is going to have records sent to me for review. If no recent david l of R sided heart function then will need MUGA. Needs eval for sleep apnea given degree of edema an d suspicion for R sided heart failure. Neck circumference puts pt at risk. 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 Will need to obtain re cords. Plan: PROTHROMBIN TIME last INR 07/14 was 2.5, gets them monthly at least, sometimes elizabeth ner. 401.1 BENIGN HYPERTENSION Note: appears to be well controlled Plan: obtain old records such as EKG and echo, cont current meds need to obtain report of lipids as well or repeat 692.9 DERMATITIS N OS Note: pt has some form of dermatitis due to skin allergy and sees at for this. Plan: CONSULT DERMATOLOGY needs referral to continue to see MD at for skin condition. documented in this encounter Nursing Notes 07/25/2003 9:00 AM CST >> QING GUY 07/25/2003 9:39 am History: Pulmonary embolism 11/20/01 Had allergy testing at the [facility]. Many topical allergies. Skin problems. Radha Schroeder MD (did allergy testing - Supervisory Forester office # [phone] Montero, supervisor bottle house cleaners. [email or web address]. BP cuff size: X-large Qing Guy RN documented in this encounter Plan of Treatment Upcoming Encounters Date Type Specialty Care Team Description 11/15/2022 Virtual Visit Pharm D Haylie Cheung, [facility] [address] [facility] [place], [place] [phone] (Wo rk) 11/15/2022 Virtual Visit IM/Peds Yane Barraza MD [address] [facility] [place] [phone] (Wo rk) 03/03/2023 Virtual Visit Neurology Erlinda Barber MD [address] [facility] [address] [place], [place] [phone] (Wo rk) documented as of this encounter Procedures Procedure Name Priority Date/Time Associated Diagnosis Comme nts ZZ CONSULT SLEEP CENTER Routine 10/26/2010 Edema ZZ CONSULT DERMATOLOGY Routine 09/01/2010 Contact dermati tis and other eczema, due to unspecified cause documented in this encounter Results CONSULT SLEEP CENTER (10/26/2010) Narrative This result has an attachment that is no t available. Mari Esparza MD REFERRAL CONSULT DERMATOLOGY (09/01/2010) Narrative This result has an attachment that is no t available. 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
--- OUTSIDE RECORDS SUMMARY | 2022-06-15 13:35 | XMS_ITS | Encounter Summary ---
:1945 Author Organization [facility] Address [address] [place] [address] Care Team Providers Name Role Phone Unavailable Primary Care Provider Unavailable Reason for Visit Reason Comments Refill Request triamterene/hctz and atenolo l Encounter Details Date Type Department Care Team Description 10/20/2003 Refill [facility] Collette Esparza, Mari Sifuentes MD Refill Request [address] [facility] JOYCE HUTCHINSON (triamterene/hctz and [place] [phone] [facility] [address] atenolol) [phone] [place] [address] (Wo rk) Social History Tobacco [...] this encounter Miscellaneous Notes Telephone Encounter - 10/20/2003 11:59 PM CDT >> MATY JERRY MonOct 20, 2003 12:46 PM >> COMPLETED ON MonOct 20, 2003 12:49 PM >> CALL RECEIVED. Contact: Last filled 09-07-03. No electrolytes done here. Filled one month per nurse protocol with instructions to make appt. Maty Jerry RN documented in this encounter Plan of Treatment Upcoming Encounters Date Type Specialty Care Team Description 11/15/2022 Virtual Visit Pharm D Haylie Cheung, [facility] [address] [place] [address] (Wo rk) 11/15/2022 Virtual Visit IM/Peds Yane Barraza MD [address] [facility] [place] [address] (Wo rk) 03/03/2023 Virtual Visit Neurology Erlinda Barber MD [address] [facility] [address] [place] [address] (Wo rk) documented as of this encounter Visit Diagnoses Not on filedocumented in this encounter
--- OUTSIDE RECORDS SUMMARY | 2022-06-15 13:35 | XMS_ITS | Encounter Summary ---
:1945 Author Organization [facility] Address [address] [place] [address] Care Team Providers Name Role Phone Unavailable Primary Care Provider Unavailable Reason for Referral - Closed Specialty Diagnoses / Procedures Referred By Contact Refer red To Contact Diagnoses Routine general medical examination at a health care facility Xu Vergara MD [facility] [address] [place] [address] Referral ID Status Reason Start Date Expiration Date Visits Requ ested Visits Authorized [id number] Closed 11/04/2003 07/16/2011 1 1 - Closed Specialty Diagnoses / Procedures Referred By Contact Refer red To Contact Diagnoses Other lymphedema Xu Vergara MD [facility] [address] [place] [address] Referral ID Status Reason Start Date Expiration Date Visits Requ ested Visits Authorized [id number] Closed 11/04/2003 07/16/2011 1 1 Reason for Visit Reason Comments Physical Has many allergies, but does not know names of all of them Encounter Details Date Type Department Care Team Description 11/04/[address] [facility] Xu Vergara ROUTI NE MEDICAL EXAM; Yarelis PATEL OTHER LYMPHEDEMA; [address] [facility] AYLA COOK AFTERCARE JAIL ANTICOAG USE; [place] [address] JASPER MORBID OBESITY (H); [phone] [address] BENIGN HYPERTENSION [place], [place] [id number] Social History Tobacco Use Types Packs/Day Years [...] Sign Reading Time Taken Comments Blood Pressure 110/80 11/04/2003 8:00 AM CDT Pulse - - Temperature - - Respiratory Rate - - Oxygen Saturation - - Inhaled Oxygen Concentration - - Weight 156.7 kg (345 lb 8 oz) 11/04/2003 8:00 AM CDT Height 170.2 cm (5' 7) 11/04/2003 8:00 AM CDT Body Mass Index 54.11 11/04/2003 8:00 AM CDT documented in this encounter Progress Notes 11/04/2003 8:00 AM CDT Last Pap Smear: 09/16 nl Last Td: almost 10 years Does Self Breast exams? yes Last Mammogram: 09/16 n eg Last Dental Visit: 2001 Last Eye exam: 09/16 wears glasses How many servings of dairy products per day? 3 For over 50: Last Colon cancer check: 2002 Type: Stool for Occult Blood Last DEXA: 2002 D o you exercise? yes Times/week 2-3 Do you feel safe in your relationships? yes Is there a gun in your home? yes Do you wear a seatbelt regularly? yes Do you use sun screen? yes BP cuff size: X- large Qing Guy RN SUBJECTIVE: CC:Marzena Evans, a 58 year old female, presents for routine health maintenance exam. HPI: also needs to discuss several ongoing chronic issues. Recently saw a therapist at the lymphedema clinic that recommended pt be seen at the lymphedema clinic to better evaluate her LE edema. Otherwise pt is doing well. 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 There are NO CHANGES Current prescriptions: TRIAMTERENE-HCTZ 37.5-25 MG OR CAPS 1 CAPSULE DAILY ATENOLOL 2 5 MG OR TABS 1 TABLET DAILY COZAAR 50 MG OR TABS 1 TABLET DAILY COUMADIN 2.5 MG OR TABS 10 mg 3 days/ wk 12.5 mg 4 days/wk COUMADIN 10 MG OR TABS 10 mg 3 days/wk 12.5 mg 4 days/wk ZYRTEC-D 5-12 0 MG OR TB12 1 TABLET TWICE DAILY NEEDED HYDROCORTISONE (TOPICAL) 2.5 % EX OINT apply as needed TO PICORT 0.05 % EX GEL apply 3 times daily as needed below knees Review of the patient's allergies f inds: Penicillins hives Cephalexin Keflex - hives Lanolin skin irritation Neomycin skin irritation Review of patient's family history indicates: C.A.D. Paternal Grandmother Diabet es No family hx of Hypertension Mother Hypertension Sister Stroke Maternal Grandmother Breast CA Paternal Aunt Comment: x3 Colon CA Sister Prostatic CA Father Th yroid Mother Social History Marital Status: Single Spouse Name: Years of Education: 17 Number of children: 1 Social History Main Topics Tobacco Use: Never Alcohol Use: No Drug Use: No Sexually Active: No REVIEW OF SYSTEMS: CONSTITUTIONAL:NEGATIVE for f ever, chills, change in weight INTEGUMENTARY/SKIN: NEGATIVE for worrisome rashes, moles or lesions EY ES: NEGATIVE for vision changes or irritation ENT/MOUTH: NEGATIVE for ear, mouth and throat problems RESP:NEGATIVE for significant cough or SOB CV: NEGATIVE for chest pain, palpitations or peripheral ed alfonso GI: NEGATIVE for nausea, abdominal pain, heartburn, or change in bowel habits :NEGATIVE for dys uria, hematuria, abnormal menses, incontinence MUSCULOSKELETAL:NEGATIVE for significant arthralgias o r myalgia NEURO: NEGATIVE for weakness, dizziness or paresthesias ENDOCRINE: NEGATIVE for temperature intolerance, skin/hair changes HEME/ALLERGY/IMMUNE: NEGATIVE for bleeding problems PSYCHIATRIC: NEGA TIVE for changes in mood or affect EXAM: BP 110/80 Ht 5' 7 (1.70m) Wt 345 lbs 8 oz (156.7kg) LMP Postmenopausal BMI = 54.11 GENERAL APPEARANCE:healthy,alert,no distress ORGAN EXAMS: EYES: PERRL, EOMI, conjunctiva and sclera normal HENT: nose,mouth without ulcers or les ions, TM's pearly kenny, normal light reflex bilateral, oral mucous membranes moist and oropharynx clear NECK: no adenopathy, no asymmetry, masses, or scars and thyroid normal to palpation RESP: CTA bilaterally CV: RRR no MRG CHEST (BREAST): normal without suspicious masses, skin changes o r axillary nodes, self exam is taught and encouraged LYMPH: NEGATIVE GI: ao rta normal, bowel sounds normal, liver span normal to percussion, no bruits heard and no massespalpable : normal external genitalia, normal cervix and adnexa, no massess palpable, exam limited by obesity MS: No varicosities. Good periphe ral pulses, Extremities normal. No deformaties, edema or skin discoloration. SKIN: no ul cers, lesions or rash NEURO: Gait normal. Reflexes normal and symmetric. Sensation gross ly WNL. PSYCH: NEGATIVE ASSESSMENT/PLAN: 58 year old health maintenance exam Card iac Risks: HTN and Age > 45 (male) or >55 (female) Patient's Goal LDL = <130 V70.0 ROUTINE MEDICAL EXAM Note: obese female Plan: MAMMOGRAM, SCREENING, A THIN LAYER PAP SCREEN, CONSULT DEUCE TECHNOLOGY TRAINER GASTRO, OCCULT BLOOD, STOOL (1-3 SPEC) will consider colonoscopybut still a bit unsu re as she cannot give herself an enema, explained that they may be able to do it with golytely prep o nly, agreeable to occult blood testing and if positive knows she will need a colon. 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 LIPID PANEL, A.M.A. COMPREHENSIVE MET.PANEL check for fatty liver and lipids 401.1 BENIGN HYPERTENSION Note: Plan: A.M.A. COMPREHENSIVE MET.PANEL manage risk factors, cont current meds, well controlled Discussed with pt breast se lf exam, mammography screening and adequate intake of calcium and vitamin D Recommended begin progres sive daily aerobic exercise program, follow a lot fat, low cholesterol diet, attempt to lose weight, continue current medications and return for routine annual chekcups I have discussed with patient th e risks and benefits of medications, treatment options and modalities. I have instructed the patient to call or schedule a follow-up appointment if any problems occur or failure fo symptoms to improve. documented in this encounter Plan of Treatment Upcoming Encounters Date Type Specialty Care Team Description 11/15/2022 Virtual Visit Pharm Haylie Gonzalez, [facility] [address] [place] [address] [place] [address] (Lena max) 11/15/2022 Virtual Visit [place] [address] [place] [address] [place] [address] (Lena max) 03/03/2023 Virtual Visit Neurology Erlinda Barber MD [address] [facility] [address] [place] [address] (Lena max) documented as of this encounter Procedures Procedure Name Priority Date/Time Associated Diagnosis Comme nts LYMPHEDEMA THERAPY Routine 02/04/2004 Other Lymphedema REFERRAL CL AFF PROTHROMBIN Routine 11/04/2003 8:57 Aftercare Shelter Results for this TIME AM CDT Anticoag Use procedure are i n the results section. CL AFF CBC WITH Routine 11/04/2003 8:57 Aftercare Assembler Dry Cell And Battery Re sults for this PLATELETS AM CDT Anticoag Use procedure are i n the results section. HCL COMPREHENSIVE Routine 11/04/2003 8:57 Morbid Obesity (H) Results for this METABOLIC PANEL AM CDT Benign Hypertension proce dure are in the results section. CL AFF A.M.A. LIPID Routine 11/04/2003 8:57 Morbid Obesity (H) Results for this PANEL AM CDT procedure are i n the results section. HCL PAP THIN LAYER Routine 11/04/2003 12:00 Routine Medical Ex am Results for this SCREEN AM CDT procedure are i n the results section. documented in this encounter Results CONSULT AUSTYN (02/04/2004) Narrative This result has an attachment that is no t available. Xu Vergara MD REFERRAL CBC WITH PLATELETS (11/04/2003 8:57 AM CDT) athologist Signature WBC 5.7 4.0 - 11.0 [facility] 10e9/L [facility] RBC Count 5.10 3.8 - 5.2 [facility] 10e12/L [facility] Hemoglobin 15.1 11.7 - [facility] 15.7 g/dL CLINIC LAB Hematocrit 45.0 35.0 - [facility] 47.0 % [facility]IN[facility] LAB MCV 88 78 - 100 [facility] fl [facility] LAB MCH 29.6 26.5 - [place] [place] 33.0 pg CLINIC LAB MCHC 33.6 32.0 - [facility] 36.0 g/dL CLIN[facility] LAB RDW 13.8 10.0 - [place] [facility] 15.0 % [facility] LAB Platelet Count 336 150 - 450 [facility] 10e9/L [facility] Specimen Anatomical Collection Method Collection Time Receive d Time (Source) Location / / Volume Laterality 11/04/2003 8:57 AM 4 9:06 CDT AM CDT Xu Vergara MD LABORATORY Performing Organization Address City/State/ZIP Code Phon e Number [facility] [address] [place] [address] [facility] LAB (ABNORMAL) PROTHROMBIN TIME (11/04/2003 8:57 AM CDT) athologist Signature INR 2.50 (H) 0.86 - 1.14 [facility] Specimen Anatomical Collection Method Collection Time Receive d Time (Source) Location / / Volume Laterality 11/04/2003 8:57 AM 4 9:06 CDT AM CDT Xu Vergara MD LABORATORY Performing Organization Address City/State/ZIP Code Phon e Number [facility] [address] [place] [address] [phone] [facility] LAB (ABNORMAL) A.M.A. COMPREHENSIVE MET.PANEL (11/04/2003 8:57 AM CDT) athologist Signature Sodium 139 133 - 144 [place] mmol/L CLINIC LAB Potassium 3.9 3.4 - 5.3 [place] mmol/L [facility] Chloride 104 94 - 109 [place] [place] mmol/L [facility] Carbon Dioxide 31 20 - 32 [place] [place] mmol/L [facility] Anion Gap 4 (L) 6 - 17 [place] mmol/L [facility] Glucose 96 60 - 115 [place] [place] mg/dL [facility] LAB Urea Nitrogen 13 7 - 30 [place] [place] mg/dL [facility] LAB Creatinine 0.70 0.60 - [place] 1.30 mg/dL [facility] LAB GFR Estimate >80 >60 [place] mL/min/1.7 [facility] m2 GFR Estimate If >80 >60 [facility] Black mL/min/1.7 CLIN[facility] LAB m2 Calcium 9.0 8.5 - 10.4 [place] mg/dL [facility] LAB Bilirubin Total 0.6 0.2 - 1.3 [place] mg/dL [facility] Albumin 3.7 3.2 - 4.5 [place] g/dL [facility] Protein Total 7.5 6.0 - 8.2 [place] g/dL [facility] Alkaline 102 40 - 150 [facility] Phosphatase U/L CLINIC LAB ALT 13 0 - 50 U/L [facility] AST 24 0 - 45 U/L [facility] Specimen Anatomical Collection Method Collection Time Receive d Time (Source) Location / / Volume Laterality 11/04/2003 8:57 AM 4 9:06 CDT AM CDT Xu Vergara MD LABORATORY Performing Organization Address City/State/ZIP Code Phon e Number [facility] [address] [place] [phone] [facility] (ABNORMAL) A.M.A. LIPID PANEL (11/04/2003 8:57 AM CDT) P athologist Signature Cholesterol 205 (H) <200 mg/dL [facility] Comment: Cholesterol Reference Range: <200 ??The NCEP recommends further ? evaluation of: ? 1. ??Patients with cholesterol ? greater than 200 mg/dL ? if additional risk facto rs ? are present. ? 2. ??All patients with a ? cholesterol greater than ? 240 mg/dL. Triglycerides 299 (H) <150 mg/dL [facility] HDL Cholesterol 36 (L) >40 mg/dL [facility] LDL Cholesterol Calculated 109 <130 mg/dL [facility] VLDL-Cholesterol 60 (H) 0 - 30 mg/dL [facility] Cholesterol/HDL Ratio 5.7 (H) 0.0 - 5.0 [facility] Specimen Anatomical Collection Method Collection Time Receive d Time (Source) Location / / Volume Laterality 11/04/2003 8:57 AM 4 9:06 CDT AM CDT Xu Vergara MD LABORATORY Performing Organization Address City/State/ZIP Code Phon e Number [address] [phone] [facility] A THIN LAYER PAP SCREEN (11/04/2003 12:00 AM CDT) Component Value Ref Test Analysis Performed At Patholo gist Range Method Time Signature Copath Report Patient Name: MARZENA EVANS MR#: [id number] Specimen #: [id number] Collected: 11/04/03 Received: 11/05/03 Reported: 11/06/03 14:10 Ordering Phy(s): XU VERGARA SPECIMEN/STAIN PROCESS: Pap thin layer prep screening ? Pap-Cyto x 1, Reflex HPV x 1 SOURCE: Cervical, endocervical ---- Pap thin layer prep screening SPECIMEN ADEQUACY: Satisfactory for evaluation. -Transitional zone component present. CYTOLOGIC INTERPRETATION: Negative for Intraepithelial Lesion or Malignancy Electronically signed out by: MAREN Gomez (ASCP) Processed and screened at [facility] CLINICAL HISTORY: Post Menopausal, Previous normal pap, Specimen (Source) Anatomical Collection Method Collection Time Re ceived Time Location / / Volume Laterality 11/04/2003 11/05/2003 2:06 PM CDT Xu Vergara MD LABORATORY Performing Organization Address City/State/ZIP Code Phon e Number [facility] documented in this encounter Visit Diagnoses Diagnosis Routine general medical examination at a health care facility Other lymphedema 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
--- OUTSIDE RECORDS SUMMARY | 2022-06-15 13:35 | XMS_ITS | Encounter Summary ---
:1945 Author Organization [place] Address [address] [place] [address] Care Team Providers Name Role Phone Unavailable Primary Care Provider Unavailable Reason for Visit Reason Comments Patient Request Encounter Details Date Type Department Care Team Description 11/18/2003 Telephone [facility] Mari Beard MD Patient Request [address] [facility] [place] [phone] [address] [phone] [place] [address] (Wo rk) Social History Tobacco [...] this encounter Miscellaneous Notes Telephone Encounter - 11/18/2003 11:59 PM CDT >> MARI Palumbo November 20, 2003 5:49 PM 30-40 compression stockings needs more End of January colonoscopy-2 years since PE has questions about coumadin. Will discuss before colonoscopy. Had issues with recent sleep study. Spent 15 minutes on phone with pt discussing these issues. >> MARI NATH [facility] November 18, 2003 5:17 PM It will be ok for her to be off of it for 5 days and then we can restart it after the procedure. >> ABELINO SALINAS November 18, 2003 4:48 PM >> CALL RECEIVED. Contact: AF >> ABELINO SALINAS [facility] November 18, 2003 4:47 PM Staff Message copied by ABELINO SALINAS on 11/18/2003 at 4:47 PM ------ Message from: ALAN CONTRERAS Created: 11/18/2003 at 3:31 PM Regarding: af pt called in wanting a call back from dr nath, pt has various questions for dr nath regarding her coumadin and the referral for the colonoscopy. pt is supposed to be off coumadin for 5 days prior to this procedure. pt can be reached at [phone] days until 4:30 pm, otherwise at [phone]. documented in this encounter Plan of Treatment Upcoming Encounters Date Type Specialty Care Team Description 11/15/2022 Virtual Visit Pharm Haylie Gonzalez, [facility] [address] [facility] [place] [address] (Wo winter) 11/15/2022 Virtual Visit [place] [address] [place] [address] [place] [phone] (Wo rk) 03/03/2023 Virtual Visit Neurology Erlinda Barber MD [address] [facility] [address] [place], [place] [address] (Wo winter) documented as of this encounter Visit Diagnoses Not on filedocumented in this encounter
--- OUTSIDE RECORDS SUMMARY | 2022-06-15 13:35 | XMS_ITS | Encounter Summary ---
:1945 Author Organization [place] Address [address] [place] [address] Care Team Providers Name Role Phone Unavailable Primary Care Provider Unavailable Reason for Visit Reason Comments INR Form Encounter Details Date Type Department Care Team Description 09/10/2003 Telephone [facility] Mari Beard MD INR Form 1440 [facility] [place] [phone] [address] [phone] [place] [address] (Wo rk) Social History [...] this encounter Miscellaneous Notes Telephone Encounter - 09/10/2003 11:59 PM COMMODITY MANAGEMENT SPECIALIST >> MATY Palumbo Sep 11, 2003 1:55 PM Pt informed again. Maty Jerry RN >> MATY JERRY [facility] Sep 11, 2003 11:53 AM LMTC. Maty Jerry RN >> MATY JERRY [facility] Sep 11, 2003 8:06 AM Left message that pt is to hold coumadin x1d then go back to 10mg MWF and 12.5mg on SSTTh. LO appt in 2 wks. Maty Jerry RN >> GABBIE Hazel Sep 10, 2003 4:10 PM >> CALL RECEIVED. Contact: for AF documented in this encounter Plan of Treatment Upcoming Encounters Date Type Specialty Care Team Description 11/15/2022 Virtual Visit Pharm D Haylie Cheung, [facility] [address] [facility] [place] [address] (Wo rk) 11/15/2022 Virtual Visit [place] [address] [place] [address] [place] [address] (Wo rk) 03/03/2023 Virtual Visit Neurology Erlinda Barber MD 420 [facility] 295 [place] [address] (Wo rk) documented as of this encounter Visit Diagnoses Not on filedocumented in this encounter
--- OUTSIDE RECORDS SUMMARY | 2022-06-15 13:35 | XMS_ITS | Encounter Summary ---
:1945 Author Organization [place] Address [address] [place] [address] Care Team Providers Name Role Phone Unavailable Primary Care Provider Unavailable Encounter Details Date Type Department Care Team Description 08/13/2003 Orders Only [facility] Eag an AFTERCARE FILM WRITER 1440 [employer] ANTICOAG USE (Primary Dx) [place] [phone] [...] Virtual Visit Haylie Wakefield, [facility] [address] [facility] [address] [place], [place] [id number] (Wo rk) 11/15/2022 Virtual Visit IM/Peds Yane Barraza MD [address] [facility] [address] [facility] [place] [address] (Wo rk) 03/03/2023 Virtual Visit Neurology Erlinda Barber MD 420 [facility] 295 [place] [address] (Wo rk) documented as of this encounter Procedures Procedure Name Priority Date/Time Associated Comments Diagnosis CL AFF PROTHROMBIN Routine 08/13/2003 4:09 PM Aftercare Long T erm Results for this TIME EXPENSE CLERK Anticoag Use procedure are i n the results section. documented in this encounter Results (ABNORMAL) PROTHROMBIN TIME (08/13/2003 4:09 PM EXPENSE CLERK) P athologist Signature INR 2.70 (H) 0.86 - 1.14 [facility] Specimen Anatomical Collection Method Collection Time Receive d Time (Source) Location / / Volume Laterality 08/13/2003 4:09 PM 4:10 EXPENSE CLERK PM EXPENSE CLERK Mari Esparza MD LABORATORY Performing Organization Address City/State/ZIP Code Phon e Number [facility] [address] [facility] [place] [address] [facility] documented in this encounter Visit Diagnoses Diagnosis shelter (current) use of anticoagulant s - Primary Long-term (current) use of anticoagulant s documented in this encounter
--- OUTSIDE RECORDS SUMMARY | 2022-06-15 13:35 | XMS_ITS | Encounter Summary ---
:1945 Author Organization [place] Address [address] [place] [address] Care Team Providers Name Role Phone Unavailable Primary Care Provider Unavailable Reason for Visit Reason Comments Refill Request cozaar Encounter Details Date Type Department Care Team Description 10/20/2003 Refill [facility]3] Mari Beard MD Refill Request (cozaar) [address] [facility] [place] [phone] [address] [phone] [place] [address] (Wo rk) Social History Tobacco [...] CDT >> MATY JERRY MonOct 20, 2003 12:54 PM >> COMPLETED ON MonOct 20, 2003 12:57 PM Last filled 09-07-03. Filled one month per nurse protocol. Pt needs appt and labs before further refills. Maty Jerry, RN >> CALL RECEIVED. Contact: documented in this encounter Plan of Treatment Upcoming Encounters Date Type Specialty Care Team Description 11/15/2022 Virtual Visit Pharm D Haylie Cheung, [facility] [address] [place] [address] (Wo rk) 11/15/2022 Virtual Visit IM/Peds Yane Barraza MD [address] [facility] [place] [address] (Wo rk) 03/03/2023 Virtual Visit Neurology Erlinda Barber MD 420 [facility] 295 [place] [address] (Wo rk) documented as of this encounter Visit Diagnoses Not on filedocumented in this encounter
--- OUTSIDE RECORDS SUMMARY | 2022-06-15 13:35 | XMS_ITS | Encounter Summary ---
:1945 Author Organization [place] Address [address] [place] [address] Care Team Providers Name Role Phone Unavailable Primary Care Provider Unavailable Reason for Visit Reason Comments INR Form Encounter Details Date Type Department Care Team Description 08/13/2003 Telephone [facility] Mari Beard MD INR Form 14[address] [facility] [place] [phone] [address] [phone] [place] [address] (Wo rk) Social History Tobacco [...] this encounter Miscellaneous Notes Telephone Encounter - 08/13/2003 11:59 PM TEACHING ASSOCIATE >> MATY Palumbo Aug 14, 2003 8:22 AM Left message for pt to stay on same dose of coumadin. LO appt in 4wks. Maty Murphy RN >> GABBIE Hazel Aug 13, 2003 4:20 PM >> CALL RECEIVED. Contact: AF documented in this encounter Plan of Treatment Upcoming Encounters Date Type Specialty Care Team Description 11/15/2022 Virtual Visit Pharm D Haylie Cheung, [facility] 14[address] [facility] [place] [address] (Wo rk) 11/15/2022 Virtual Visit IM/Peds Yane Barraza MD [address] [facility] [place] [address] (Wo rk) 03/03/2023 Virtual Visit Neurology Erlinda Barber MD 420 [facility] 295 [place] [address] (Wo rk) documented as of this encounter Visit Diagnoses Not on filedocumented in this encounter
--- OUTSIDE RECORDS SUMMARY | 2022-06-15 13:35 | XMS_ITS | Encounter Summary ---
:1945 Author Organization [place] Address [address] [place] [address] Care Team Providers Name Role Phone Unavailable Primary Care Provider Unavailable Reason for Visit Reason Comments Refill Request zyrtec D Encounter Details Date Type Department Care Team Description 10/20/2003 Refill [facility] Mari Beard MD Refill Request (zyrtec [facility] [facility] [place] [place] [phone] [address] [phone] [place] [address] (Wo rk) Social History Tobacco [...] CDT >> MATY JERRY MonOct 20, 2003 12:42 PM >> CALL RECEIVED. Contact: Last filled 09-07-03. Filled per nurse protocol. Maty Jerry RN documented in this encounter Plan of Treatment Upcoming Encounters Date Type Specialty Care Team Description 11/15/2022 Virtual Visit Pharm D Haylie Cheung, [facility] [address] [place] [address] (Wo rk) 11/15/2022 Virtual Visit IM/Peds Yane Barraza MD [address] [facility] [place] [address] (Wo rk) 03/03/2023 Virtual Visit Neurology Erlinda Barber MD 420 [facility] 295 [place] [address] (Wo rk) documented as of this encounter Visit Diagnoses Not on filedocumented in this encounter
--- OUTSIDE RECORDS SUMMARY | 2022-06-15 13:35 | XMS_ITS | Encounter Summary ---
:1945 Author Organization [place] Address [address] [place] [address] Care Team Providers Name Role Phone Unavailable Primary Care Provider Unavailable Encounter Details Date Type Department Care Team Description 11/25/2003 Results Only [facility] Isaias, Mari Sifuentes MD 14[address] [facility] [place] [phone] [address] [phone] [place] [address] (Wo rk) Social History Tobacco [...] Visit Haylie Wakefield, [facility] [address] [place] [address] (Wo rk) 11/15/2022 Virtual Visit IM/Peds Yane Barraza MD [address] [facility] [address] [place], [place] [phone] (Wo rk) 03/03/2023 Virtual Visit Neurology Erlinda Barber MD 420 [facility] 295 [place] [address] (Wo rk) Scheduled Orders Name Type Priority Associated Diagnoses Order S chedule Mammo screening* Imaging Routine Ordered: documented as of this encounter Procedures Procedure Name Priority Date/Time Associated Diagnosis Comme nts C MAMMOGRAM, Routine 11/25/2003 2:30 PM Results f or this SCREENING CDT procedure are i n the results section. documented in this encounter Results MAMMOGRAM, SCREENING (11/25/2003 2:30 PM CDT) Anatomical Region Laterality Modality Other Specimen (Source) Anatomical Collection Method Collection Time Re ceived Time Location / / Volume Laterality 11/25/2003 2:30 PM CDT Impressions 11/28/2003 1:49 PM CDT SCREENING MAMMOGRAM, BILATERAL BREAST SYMPTOMS: None PREVIOUS MAMMOGRAPHY: Comparison with [facility] dated 10/18/02 and 06/18/99. ??There is no significant ramsey e. BREAST PARENCHYMA: ??Fatty/mild densiti es. IMPRESSION: CATEGORY 1 Negative TECHNOLOGIST INITIALS: KM Mari Esparza MD SPECIAL IMAGING STUDIES documented in this encounter Visit Diagnoses Not on filedocumented in this encounter
--- OUTSIDE RECORDS SUMMARY | 2022-06-15 13:35 | XMS_ITS | Encounter Summary ---
:1945 Author Organization [place] Address [address] [place] [address] Care Team Providers Name Role Phone Unavailable Primary Care Provider Unavailable Encounter Details Date Type Department Care Team Description 09/24/2003 Orders Only [facility] Eag an AFTERCARE RESPIRATORY THERAPY AIDE 14[address] [employer] ANTICOAG USE (Primary Dx) [place] [phone] [...] Haylie Wakefield, [facility] [address] [facility] [address] [place], [place] [id number] (Wo rk) 11/15/2022 Virtual Visit IM/Peds Yane Barraza MD [address] [facility] [place] [address] (Wo rk) 03/03/2023 Virtual Visit Neurology Erlinda Barber MD 420 [facility] 295 [place] [address] (Wo rk) documented as of this encounter Procedures Procedure Name Priority Date/Time Associated Comments Diagnosis CL AFF PROTHROMBIN Routine 09/24/2003 9:43 AM Aftercare Long T erm Results for this TIME INCOME TAX CONSULTANT Anticoag Use procedure are i n the results section. documented in this encounter Results (ABNORMAL) PROTHROMBIN TIME (09/24/2003 9:43 AM INCOME TAX CONSULTANT) P athologist Signature INR 2.20 (H) 0.86 - 1.14 [facility] Specimen Anatomical Collection Method Collection Time Receive d Time (Source) Location / / Volume Laterality 09/24/2003 9:43 AM 4 9:53 INCOME TAX CONSULTANT AM INCOME TAX CONSULTANT Mari Esparza MD LABORATORY Performing Organization Address City/State/ZIP Code Phon e Number [facility] [address] [facility] [place] [address] [facility] documented in this encounter Visit Diagnoses Diagnosis correction (current) use of anticoagulant s - Primary Long-term (current) use of anticoagulant s documented in this encounter
--- OUTSIDE RECORDS SUMMARY | 2022-06-15 13:41 | XMS_ITS | Continuity of Care Document ---
:1945 Author Organization [facility] Address [address] [address] [place] [address] Phone Care Team Providers Name Role Phone Sherif PATEL, Vandana Unavailable Unavailable Advance Directives Directive Yes / No Effective Date File Name No Information Encounters Encounter Practice Location Reason(s) Diagnoses Date Provider Provide rs Description For Visit Copied on Encounter STEVEN Coello [facility] No Sherif PATEL [facility] Information -2003 Vandana. [facility] [address] [address], [address], [facility] [id number], [place], [place], [id number], tel:[phone] tel:[phone] Family History Family Member Type Diagnosis Age At Onset No Information Payers Payer name Insurance type Covered constitution party ID Authorization(s ) [employer] [id number] Social History Type Description Quantity Date Captured Comments Sex Female Smoking Status No Information Chief Complaint And Reason For Visit No Information Reason For Referral Reason For Referral No Information Plan Of Treatment Date Type Action Status No Information History Of Present Illness Encounter Date Complaint History Of Present I llness No Information Functional Status Date Functional Assessment No Information Instructions Date Instruction Additional Informati on No Information Assessments Type Assessment Date No Information Patient Care Teams Name Effective Dates (start - stop) Status M embers No Information
== END 2022-06-15 12:33 | disposition home or self-care (01) ==
LOC: WOUND 12:33
PROVIDERS: Visit Provider Surgery
DX: L89.154 Pressure ulcer of sacral region, stage 4 (principal); I89.0 Lymphedema, not elsewhere classified
CPT/HCPCS: 11042; 11045

== ENCOUNTER 2022-06-22 12:29 | Outpatient (CLI) | payer MEDICARE, BC, SELFPAY | END 2022-06-22 12:30 | disposition home or self-care (01) | LOC: WOUND 12:29 | PROVIDERS: Visit Provider Surgery | DX: L89.154 Pressure ulcer of sacral region, stage 4 (principal); I89.0 Lymphedema, not elsewhere classified | CPT/HCPCS: 11042 ==

== ENCOUNTER 2022-06-29 12:20 | Outpatient (CLI) | payer MEDICARE, BC, SELFPAY | END 2022-06-29 12:21 | disposition home or self-care (01) | LOC: WOUND 12:20 | PROVIDERS: Visit Provider Surgery | DX: L89.154 Pressure ulcer of sacral region, stage 4 (principal); I89.0 Lymphedema, not elsewhere classified; E66.01 Morbid (severe) obesity due to excess calories; Z68.43 Body mass index [BMI] 50.0-59.9, adult | CPT/HCPCS: 11042 ==

== ENCOUNTER 2022-07-13 12:38 | Outpatient (CLI) | payer MEDICARE, BC, SELFPAY | END 2022-07-13 12:39 | disposition home or self-care (01) | LOC: WOUND 12:39 | PROVIDERS: Visit Provider Surgery | DX: L89.154 Pressure ulcer of sacral region, stage 4 (principal); I89.0 Lymphedema, not elsewhere classified | CPT/HCPCS: 11042 ==

== ENCOUNTER 2022-07-27 12:26 | Outpatient (CLI) | payer MEDICARE, BC, SELFPAY | END 2022-07-27 12:27 | disposition home or self-care (01) | LOC: WOUND 12:27 | PROVIDERS: Visit Provider Surgery | DX: L89.154 Pressure ulcer of sacral region, stage 4 (principal); I89.0 Lymphedema, not elsewhere classified | CPT/HCPCS: 11042 ==

== ENCOUNTER 2022-08-03 12:48 | Outpatient (CLI) | payer MEDICARE, BC, SELFPAY | END 2022-08-03 12:49 | disposition home or self-care (01) | LOC: WOUND 12:48 | PROVIDERS: Visit Provider Surgery | DX: L89.154 Pressure ulcer of sacral region, stage 4 (principal); I89.0 Lymphedema, not elsewhere classified | CPT/HCPCS: 11042 ==

== ENCOUNTER 2022-08-17 12:35 | Outpatient (CLI) | payer MEDICARE, BC, SELFPAY | END 2022-08-17 12:36 | disposition home or self-care (01) | LOC: WOUND 12:35 | PROVIDERS: Visit Provider Surgery | DX: L89.154 Pressure ulcer of sacral region, stage 4 (principal); I89.0 Lymphedema, not elsewhere classified | CPT/HCPCS: 11042 ==

== ENCOUNTER 2022-08-24 12:38 | Outpatient (CLI) | payer MEDICARE, BC, SELFPAY | END 2022-08-24 12:39 | disposition home or self-care (01) | LOC: WOUND 12:39 | PROVIDERS: Visit Provider Surgery | DX: L89.154 Pressure ulcer of sacral region, stage 4 (principal); I89.0 Lymphedema, not elsewhere classified | CPT/HCPCS: 11042 ==

== ENCOUNTER 2022-08-31 12:42 | Outpatient (CLI) | payer MEDICARE, BC, SELFPAY | END 2022-08-31 12:43 | disposition home or self-care (01) | LOC: WOUND 12:43 | PROVIDERS: Visit Provider Surgery | DX: L89.154 Pressure ulcer of sacral region, stage 4 (principal); I89.0 Lymphedema, not elsewhere classified | CPT/HCPCS: 11042 ==

== ENCOUNTER 2022-09-14 12:28 | Outpatient (CLI) | payer MEDICARE, BC, SELFPAY | END 2022-09-14 12:29 | disposition home or self-care (01) | LOC: WOUND 12:28 | PROVIDERS: Visit Provider Surgery | DX: L89.154 Pressure ulcer of sacral region, stage 4 (principal); I89.0 Lymphedema, not elsewhere classified | CPT/HCPCS: 97597 ==

== ENCOUNTER 2022-09-21 11:34 | Outpatient (CLI) | payer MEDICARE, BC, SELFPAY | END 2022-09-21 11:35 | disposition home or self-care (01) | LOC: WOUND 11:35 | PROVIDERS: Visit Provider Surgery | DX: L89.154 Pressure ulcer of sacral region, stage 4 (principal) | CPT/HCPCS: 97597 ==

== ENCOUNTER 2022-09-28 12:26 | Outpatient (CLI) | payer MEDICARE, BC, SELFPAY | END 2022-09-28 12:27 | disposition home or self-care (01) | LOC: WOUND 12:26 | PROVIDERS: Visit Provider Surgery | DX: L89.154 Pressure ulcer of sacral region, stage 4 (principal); I89.0 Lymphedema, not elsewhere classified | CPT/HCPCS: 11042 ==

== ENCOUNTER 2022-10-05 12:36 | Outpatient (CLI) | payer MEDICARE, BC, SELFPAY | END 2022-10-05 12:37 | disposition home or self-care (01) | LOC: WOUND 12:36 | PROVIDERS: Visit Provider Surgery | DX: L89.154 Pressure ulcer of sacral region, stage 4 (principal); I89.0 Lymphedema, not elsewhere classified; E66.01 Morbid (severe) obesity due to excess calories; Z68.43 Body mass index [BMI] 50.0-59.9, adult | CPT/HCPCS: 11042 ==

== ENCOUNTER 2022-10-12 12:43 | Outpatient (CLI) | payer MEDICARE, BC, SELFPAY | END 2022-10-12 12:44 | disposition home or self-care (01) | LOC: WOUND 12:44 | PROVIDERS: Visit Provider Surgery | DX: L89.154 Pressure ulcer of sacral region, stage 4 (principal); I89.0 Lymphedema, not elsewhere classified | CPT/HCPCS: 11042 ==

== ENCOUNTER 2022-10-19 12:25 | Outpatient (CLI) | payer MEDICARE, BC, SELFPAY | END 2022-10-19 12:26 | disposition home or self-care (01) | LOC: WOUND 12:26 | PROVIDERS: Visit Provider Surgery | DX: L89.154 Pressure ulcer of sacral region, stage 4 (principal); I89.0 Lymphedema, not elsewhere classified | CPT/HCPCS: 11042 ==

== ENCOUNTER 2022-10-26 12:12 | Outpatient (CLI) | payer MEDICARE, BC, SELFPAY | END 2022-10-26 12:13 | disposition home or self-care (01) | LOC: WOUND 12:12 | PROVIDERS: Visit Provider Surgery | DX: L89.154 Pressure ulcer of sacral region, stage 4 (principal); I89.0 Lymphedema, not elsewhere classified | CPT/HCPCS: 11042 ==

== ENCOUNTER 2022-11-02 12:48 | Outpatient (CLI) | payer MEDICARE, BC, SELFPAY | END 2022-11-02 12:49 | disposition home or self-care (01) | LOC: WOUND 12:48 | PROVIDERS: Visit Provider Surgery | DX: L89.154 Pressure ulcer of sacral region, stage 4 (principal); I89.0 Lymphedema, not elsewhere classified; I48.20 Chronic atrial fibrillation, unspecified; R77.0 Abnormality of albumin | CPT/HCPCS: 11042 ==

== ENCOUNTER 2022-11-09 12:40 | Outpatient (CLI) | payer MEDICARE, BC, SELFPAY | END 2022-11-09 12:41 | disposition home or self-care (01) | LOC: WOUND 12:40 | PROVIDERS: Visit Provider Surgery | DX: L89.154 Pressure ulcer of sacral region, stage 4 (principal); I89.0 Lymphedema, not elsewhere classified | CPT/HCPCS: 11042 ==

== ENCOUNTER 2022-12-21 12:32 | Outpatient (CLI) | payer MEDICARE, BC, SELFPAY | END 2022-12-21 12:33 | disposition home or self-care (01) | LOC: WOUND 12:32 | PROVIDERS: Visit Provider Surgery | DX: L89.154 Pressure ulcer of sacral region, stage 4 (principal); I89.0 Lymphedema, not elsewhere classified; E66.01 Morbid (severe) obesity due to excess calories; I48.20 Chronic atrial fibrillation, unspecified | CPT/HCPCS: 11042 ==

== ENCOUNTER 2022-12-28 12:51 | Outpatient (CLI) | payer MEDICARE, BC, SELFPAY | END 2022-12-28 12:52 | disposition home or self-care (01) | LOC: WOUND 12:51 | PROVIDERS: Visit Provider Surgery | DX: L89.154 Pressure ulcer of sacral region, stage 4 (principal) | CPT/HCPCS: 11042; 11045 ==

== ENCOUNTER 2023-01-04 12:53 | Outpatient (CLI) | payer MEDICARE, BC, SELFPAY | END 2023-01-04 12:54 | disposition home or self-care (01) | LOC: WOUND 12:54 | PROVIDERS: Visit Provider Surgery | DX: L89.154 Pressure ulcer of sacral region, stage 4 (principal); I89.0 Lymphedema, not elsewhere classified | CPT/HCPCS: 11042; 11045 ==

== ENCOUNTER 2023-01-11 12:59 | Outpatient (CLI) | payer MEDICARE, BC, SELFPAY | END 2023-01-11 13:00 | disposition home or self-care (01) | LOC: WOUND 12:59 | PROVIDERS: Visit Provider Surgery | DX: L89.154 Pressure ulcer of sacral region, stage 4 (principal) | CPT/HCPCS: 11042; 11045 ==

== ENCOUNTER 2023-01-18 12:57 | Outpatient (CLI) | payer MEDICARE, BC, SELFPAY | END 2023-01-18 12:58 | disposition home or self-care (01) | PROVIDERS: Visit Provider Surgery | DX: L89.154 Pressure ulcer of sacral region, stage 4 (principal) | CPT/HCPCS: 99212 ==

== ENCOUNTER 2023-01-25 11:40 | Outpatient (CLI) | payer MEDICARE, BC, SELFPAY | END 2023-01-25 11:41 | disposition home or self-care (01) | LOC: WOUND 11:40 | PROVIDERS: Visit Provider Surgery | DX: L89.154 Pressure ulcer of sacral region, stage 4 (principal); I89.0 Lymphedema, not elsewhere classified | CPT/HCPCS: 99212 ==

== ENCOUNTER 2023-02-01 12:35 | Outpatient (CLI) | payer MEDICARE, BC, SELFPAY | END 2023-02-01 12:36 | disposition home or self-care (01) | LOC: WOUND 12:36 | PROVIDERS: Visit Provider Surgery | DX: L89.154 Pressure ulcer of sacral region, stage 4 (principal); I89.0 Lymphedema, not elsewhere classified | CPT/HCPCS: 11042; 11045 ==

== ENCOUNTER 2023-02-08 12:48 | Outpatient (CLI) | payer MEDICARE, BC, SELFPAY | END 2023-02-08 12:49 | disposition home or self-care (01) | LOC: WOUND 12:49 | PROVIDERS: Visit Provider Surgery | DX: L89.154 Pressure ulcer of sacral region, stage 4 (principal); I89.0 Lymphedema, not elsewhere classified | CPT/HCPCS: 11042; 11045 ==

== ENCOUNTER 2023-02-15 12:42 | Outpatient (CLI) | payer MEDICARE, BC, SELFPAY | END 2023-02-15 12:43 | disposition home or self-care (01) | LOC: WOUND 12:42 | PROVIDERS: Visit Provider Surgery | DX: L89.154 Pressure ulcer of sacral region, stage 4 (principal); I89.0 Lymphedema, not elsewhere classified | CPT/HCPCS: 15271; 15272; 15275; 15276; Q4158 ==

== ENCOUNTER 2023-02-17 13:47 | Outpatient (CLI) | payer MEDICARE, BC, SELFPAY | END 2023-02-17 13:48 | disposition home or self-care (01) | LOC: WOUND 13:48 | PROVIDERS: Visit Provider Surgery | DX: L89.154 Pressure ulcer of sacral region, stage 4 (principal); I89.0 Lymphedema, not elsewhere classified | CPT/HCPCS: 99212 ==

== ENCOUNTER 2023-02-22 12:40 | Outpatient (CLI) | payer MEDICARE, BC, SELFPAY | END 2023-02-22 12:41 | disposition home or self-care (01) | LOC: WOUND 12:40 | PROVIDERS: Visit Provider Surgery | DX: L89.154 Pressure ulcer of sacral region, stage 4 (principal); I89.0 Lymphedema, not elsewhere classified; E66.01 Morbid (severe) obesity due to excess calories; Z68.43 Body mass index [BMI] 50.0-59.9, adult | CPT/HCPCS: 11042; 11045 ==

== ENCOUNTER 2023-03-01 13:01 | Outpatient (CLI) | payer MEDICARE, BC, SELFPAY | END 2023-03-01 13:02 | disposition home or self-care (01) | LOC: WOUND 13:02 | PROVIDERS: Visit Provider Surgery | DX: L89.154 Pressure ulcer of sacral region, stage 4 (principal); I89.0 Lymphedema, not elsewhere classified | CPT/HCPCS: 11042; 11045 ==

== ENCOUNTER 2023-03-08 12:39 | Outpatient (CLI) | payer MEDICARE, BC, SELFPAY | END 2023-03-08 12:40 | disposition home or self-care (01) | LOC: WOUND 12:40 | PROVIDERS: Visit Provider Surgery | DX: L89.154 Pressure ulcer of sacral region, stage 4 (principal); I89.0 Lymphedema, not elsewhere classified | CPT/HCPCS: 11042; 11045 ==

== ENCOUNTER 2023-03-15 12:35 | Outpatient (CLI) | payer MEDICARE, BC, SELFPAY | END 2023-03-15 12:36 | disposition home or self-care (01) | LOC: WOUND 12:35 | PROVIDERS: Visit Provider Surgery | DX: L89.154 Pressure ulcer of sacral region, stage 4 (principal); I89.0 Lymphedema, not elsewhere classified | CPT/HCPCS: 11042; 11045 ==

== ENCOUNTER 2023-03-22 12:48 | Outpatient (CLI) | payer MEDICARE, BC, SELFPAY | END 2023-03-22 12:49 | disposition home or self-care (01) | LOC: WOUND 12:48 | PROVIDERS: Visit Provider Surgery | DX: L89.154 Pressure ulcer of sacral region, stage 4 (principal) | CPT/HCPCS: 11042; 11045 ==

== ENCOUNTER 2023-03-29 12:39 | Outpatient (CLI) | payer MEDICARE, BC, SELFPAY | END 2023-03-29 12:40 | disposition home or self-care (01) | LOC: WOUND 12:40 | PROVIDERS: Visit Provider Surgery | DX: L89.154 Pressure ulcer of sacral region, stage 4 (principal); I89.0 Lymphedema, not elsewhere classified | CPT/HCPCS: 11042; 11045; 36415; 87102 ==